=== PATIENT | male | born 1955 | race Hispanic/Latino ===

== ENCOUNTER 2018-02-24 15:07 | Emergency (ER) | payer BC, SELFPAY ==
--- NOTE | 2018-02-24 15:46 | EDPHYS ---
Physician Documentation [facility] Name: Tonny Cardona Age: 62 yrs Sex: Male : 1955 Arrival Date: 02/24/2018 Time: 15:10 Bed 28 Private MD: ED Physician Lucho Franco HPI: 02/24 15:19 This 62 yrs old Male presents to ER via EMS with complaints of abdominal pain. cp 15:19 The patient presents with abdominal pain in the periumbilical area. Onset: The cp symptoms/episode began/occurred 30 minute(s) ago. The symptoms do not radiate. Associated signs and symptoms: Pertinent negatives: blood in stools, chest pain, constipation, diarrhea, fever, testicular pain, vomiting. The symptoms are described as burning. Severity of pain: in the emergency department the pain has resolved. Patient reports pain started suddenly and is now resolved. Reports history of hernia repair in 2010. Patient reports he got "scared" when pain started so girlfriend called EMS. Historical: - Allergies: 15:15 No Known Allergies; mg2 - PMHx: 15:15 Diabetes - NIDDM; Hypertension; psoriasis; mg2 - PSHx: 15:15 Hernia repair; mg2 - Immunization history:: Flu vaccine is not up to date. - Social history:: Smoking status: Patient/guardian denies using tobacco, Patient uses alcohol, admits to "couple of beers" a day. Patient/guardian denies using street drugs, IV drugs. - Ebola Screening: : No symptoms or risks identified at this time. ROS: 15:22 All other systems are negative. cp Exam: 15:22 Head/Face: Normocephalic, atraumatic. cp 15:22 Constitutional: The patient appears in no acute distress, alert, awake, non-diaphoretic, non-toxic, well developed, well nourished, overweight 15:22 Eyes: Periorbital structures: appear normal, Conjunctiva: normal, no exudate, no injection, Sclera: no appreciated abnormality, Lids and lashes: appear normal, bilaterally. 15:22 ENT: External ear(s): are unremarkable, Nose: is normal, Mouth: Lips: moist, Oral mucosa: pink and intact, moist, Posterior pharynx: is normal, airway is patent, no erythema, no exudate. 15:22 Chest/axilla: Inspection: normal, Palpation: is normal, no crepitus, no tenderness. 15:22 Cardiovascular: Rate: normal, Rhythm: regular. 15:22 Respiratory: the patient does not display signs of respiratory distress, Respirations: normal, no use of accessory muscles, no retractions, no splinting, no tachypnea, labored breathing, is not present, Breath sounds: are clear throughout, no decreased breath sounds, no stridor, no wheezing. 15:22 Abdomen/GI: Inspection: obese Bowel sounds: active, all quadrants, Palpation: abdomen is soft and non-tender, in all quadrants, rebound tenderness, is not appreciated, voluntary guarding, is not appreciated, involuntary guarding, is not appreciated. 15:22 Back: pain, is absent, ROM is normal. 15:22 Skin: cellulitis, is not appreciated, consistent with psoriasis, and is diffusely located. Vital Signs: 15:13 BP 161 / 85; Pulse 85; Resp 18; Temp 97.9; Pulse Ox 100% on R/A; Weight 104.33 kg; mg2 Height 5 ft. 6 in. (167.64 cm); Pain 4/10; 15:59 BP 155 / 85; Pulse 78; Resp 18; Pulse Ox 100% on R/A; Pain 0/10; mg2 15:13 Body Mass Index 37.12 (104.33 kg, 167.64 cm) mg2 MDM: 15:19 Patient medically screened. cp 15:30 Differential diagnosis: appendicitis, bowel obstruction, non-specific abd pain, cp Pyelonephritis, Ureterolithiasis, urinary tract infection. 15:45 Data reviewed: vital signs, nurses notes, and as a result, I will discharge patient. cp 15:45 Counseling: I had a detailed discussion with the patient and/or guardian regarding: the cp historical points, exam findings, and any diagnostic results supporting the discharge/admit diagnosis, to return to the emergency department if symptoms worsen or persist or if there are any questions or concerns that arise at home. Administered Medications: No medications were administered Disposition: 16:10 Chart complete. cp 17:36 Co-signature as Attending Physician, Lucho Franco MD. Disposition: 02/24/18 15:45 Discharged to Home. Impression: Unspecified abdominal pain - Resolved. - Condition is Stable. - Discharge Instructions: Abdominal Pain, Adult. - Medication Reconciliation Form, Thank You Letter, Antibiotic Education, Prescription Opioid Use form. - Follow up: Lázaro Sampson MD; When: 2 - 3 days; Reason: Recheck today's complaints. - Problem is new. - Symptoms are resolved. Signatures: Milan Mcbride PA PA cp Lucho Franco MD MD gs Osmany Blanca RN RN mg2 Corrections: (The following items were deleted from the chart) 16:05 15:45 02/24/2018 15:45 Discharged to Home. Impression: Unspecified abdominal pain - mg2 Resolved. Condition is Stable. Forms are Medication Reconciliation Form, Thank You Letter, Antibiotic Education, Prescription Opioid Use. Follow up: Dr. Lázaro Sampson; When: 2 - 3 days; Reason: Recheck today's complaints. Problem is new. Symptoms are resolved. cp
--- NOTE | 2018-02-24 15:46 | ER ---
Nurse's Notes [facility] Name: Tonny Cardona Age: 62 yrs Sex: Male : 1955 Arrival Date: 02/24/2018 Time: 15:10 Bed 28 Private MD: Diagnosis: Unspecified abdominal pain-Resolved Presentation: 02/24 15:10 Presenting complaint: EMS states: about 20 min ago, while patient was sitting at the mg2 backseat of his car he felt a sudden pain on his abdomen. he is thinking maybe of his hernia which was done in [place] last 2010. BGL of 131. Transition of care: patient was not received from another setting of care. Onset of symptoms was February 24, 2018. Risk Assessment: Do you want to hurt yourself or someone else? Patient reports no desire to harm self or others. Initial Sepsis Screen: Does the patient meet any 2 criteria? No. Patient's initial sepsis screen is negative. Does the patient have a suspected source of infection? No. Patient's initial sepsis screen is negative. Care prior to arrival: None. 15:10 Method Of Arrival: EMS mg2 15:10 Acuity: FAIZA 3 mg2 Triage Assessment: 16:04 General: Behavior is calm. mg2 Historical: - Allergies: 15:15 No Known Allergies; mg2 - PMHx: 15:15 Diabetes - NIDDM; Hypertension; psoriasis; mg2 - PSHx: 15:15 Hernia repair; mg2 - Immunization history:: Flu vaccine is not up to date. - Social history:: Smoking status: Patient/guardian denies using tobacco, Patient uses alcohol, admits to "couple of beers" a day. Patient/guardian denies using street drugs, IV drugs. - Ebola Screening: : No symptoms or risks identified at this time. Screenin:23 Abuse screen: Denies threats or abuse. Denies injuries from another. Nutritional mg2 screening: No deficits noted. Tuberculosis screening: No symptoms or risk factors identified. Fall Risk None identified. Assessment: 15:24 General: Appears in no apparent distress. comfortable. Pain: Complains of pain in mg2 abdomen Pain does not radiate. Pain currently is 4 out of 10 on a pain scale. Quality of pain is described as aching, hot Pain began gradually, Is intermittent, Alleviated by. Neuro: Level of Consciousness is awake, alert, obeys commands, Oriented to person, place, time, situation. Cardiovascular: Capillary refill < 3 seconds Patient's skin is warm and dry. Respiratory: Airway is patent Respiratory effort is even, unlabored, Respiratory pattern is regular, symmetrical. GI: No signs and/or symptoms were reported involving the gastrointestinal system. : No signs and/or symptoms were reported regarding the genitourinary system. EENT: No signs and/or symptoms were reported regarding the EENT system. Derm: Skin is intact, Skin is pink, warm \\T\\ dry. normal. Musculoskeletal: No signs and/or symptoms reported regarding the musculoskeletal system. 16:04 Reassessment: Patient appears in no apparent distress at this time. Patient and/or mg2 family updated on plan of care and expected duration. Pain level reassessed. Patient is alert, oriented x 3, equal unlabored respirations, skin warm/dry/pink. Vital Signs: 15:13 BP 161 / 85; Pulse 85; Resp 18; Temp 97.9; Pulse Ox 100% on R/A; Weight 104.33 kg; mg2 Height 5 ft. 6 in. (167.64 cm); Pain 4/10; 15:59 BP 155 / 85; Pulse 78; Resp 18; Pulse Ox 100% on R/A; Pain 0/10; mg2 15:13 Body Mass Index 37.12 (104.33 kg, 167.64 cm) mg2 ED Course: 15:10 Patient arrived in ED. mg2 15:13 Triage completed. mg2 15:14 Milan Mcbride PA is PHCP. cp 15:14 Lucho Franco MD is Attending Physician. cp 15:23 Osmany Blanca, RN is Primary Nurse. mg2 15:24 No provider procedures requiring assistance completed. mg2 15:25 Patient has correct armband on for positive identification. Pulse ox on. NIBP on. mg2 15:27 Arm band placed on. mg2 15:44 Lázaro Sampson MD is Referral Physician. cp 16:04 Patient did not have IV access during this emergency room visit. mg2 Administered Medications: No medications were administered Outcome: 15:45 Discharge ordered by . cp 16:04 Discharged to home ambulatory. mg2 16:04 Condition: stable 16:04 Discharge instructions given to patient, Instructed on discharge instructions, follow up and referral plans. 16:05 Patient left the ED. mg2 Signatures: Milan Mcbride PA PA Osmany Greenwood, RN RN mg2
== END 2018-02-24 16:05 | disposition home or self-care (01) ==
LOC: ER 15:07
DX: R10.9 Unspecified abdominal pain (principal); I10 Essential (primary) hypertension
CPT/HCPCS: 99283

== ENCOUNTER 2018-05-23 16:25 | Inpatient (IN) | payer OTHER, SELFPAY ==
--- OUTSIDE RECORDS SUMMARY | 2018-05-23 16:27 | XMS REPORT ---
:1955 [facility] Address [address] [place] [address] Dr. Vil[address]as [address] [place] [id number] Care Team Providers Name Role Phone Unavailable Unavailable Unavailable Problems This patient has no known problems. Allergies, Adverse Reactions, Alerts This patient has no known allergies or adverse reactions. Medications This patient has no known medications.
--- NOTE | 2018-05-23 18:36 | RAD REPORT ---
EXAM DESCRIPTION: RAD - Chest Single View - 05/23/2018 6:30 pm CLINICAL HISTORY: SWELLING Chest pain. COMPARISON: CHEST SINGLE VIEW dated 05/31/2010 FINDINGS: Portable technique limits examination quality. The lungs are grossly clear. The heart is normal in size. No displaced fractures. IMPRESSION: No acute intrathoracic process suspected.
[2018-05-23 18:37] LABS: Absolute Lymphocytes (CBC) 1.4 K/uL (0.7-4.9); Absolute Monocytes 0.9 K/uL (0.1-1.3); Absolute Neutrophil 4.4 K/uL (1.8-8.0); Basophils % 0.9 % (0-1.3); Eosinophils % 1.1 % (0-4.4); Hematocrit 37.2 % (39.6-49.0); Lymphocytes % 20.8 % (15.3-44.8); MPV 9.3 fL (7.6-11.3); Monocytes % 12.6 % (3.3-12.3); RBC Red Blood Cell Count 3.63 M/uL (4.33-5.43)
[2018-05-23 18:40] LABS: Protime INR 1.4
[2018-05-23 18:57] LABS: BUN Blood Urea Nitrogen 6 mg/dL (7-18); Bicarbonate 25 mmol/L (21-32); Glucose Level 154 mg/dL (74-106); Magnesium 1.8 mg/dL (1.8-2.4); NT PRO-BNP 51 pg/mL (<125); Potassium 3.9 mmol/L (3.5-5.1); Sodium Level 136 mmol/L (136-145); Troponin (Emerg Dept Use Only) 0.34 ng/mL (0.0-0.045)
[2018-05-23 19:22] LABS: Blood Morphology Comment NOT SEEN (NOT SEEN); Platelet Estimate DECR; Urine White Blood Cell Casts OK
--- NOTE | 2018-05-23 19:29 | RAD REPORT ---
EXAM DESCRIPTION: US - Extrem Venous W Compress Brendon - 05/23/2018 6:54 pm CLINICAL HISTORY: Pain;Swelling Bilateral leg edema and swelling. COMPARISON: No comparisons TECHNIQUE: Real-time sonographic interrogation of the left and right lower extremity deep venous sys tems was performed. FINDINGS: Normal compressibility, flow augmentation, phasic flow and spontaneous flow is identified in both the left and right lower extremity deep venous systems. IMPRESSION: No sonographic evidence of left or right lower extremity deep venous thrombosis.
--- NOTE | 2018-05-23 20:00 | ER ---
Nurse's Notes [facility] Name: Tonny Cardona Age: 62 yrs Sex: Male : 1955 Arrival Date: 05/23/2018 Time: 16:27 Bed 23 Private MD: Diagnosis: Elevated Troponin;Cellulitis of left lower limb;Cellulitis of right lower limb Presentation: 05/23 16:47 Presenting complaint: Patient states: my both legs are swollen yury my R leg; i started hj seeing a drier; denies SOB; denies trauma to the area;. Transition of care: patient was not received from another setting of care. Onset of symptoms was May 23, 2018. Risk Assessment: Do you want to hurt yourself or someone else? Patient reports no desire to harm self or others. Initial Sepsis Screen: Does the patient meet any 2 criteria? No. Patient's initial sepsis screen is negative. Does the patient have a suspected source of infection? No. Patient's initial sepsis screen is negative. Care prior to arrival: None. 16:47 Method Of Arrival: Ambulatory 16:47 Acuity: FAIZA 3 Triage Assessment: 16:49 General: Appears in no apparent distress. uncomfortable, Behavior is calm, cooperative, hj appropriate for age. Pain: Complains of pain in right leg and left leg. Historical: - Allergies: 16:48 No Known Allergies; hj - Home Meds: 16:48 lisinopril 20 mg Oral tab 1 tab once daily [Active]; hj - PMHx: 16:48 Diabetes - NIDDM; Hypertension; psoriasis; hj - PSHx: 16:48 Hernia repair; - Immunization history:: Adult Immunizations up to date. - Social history:: Smoking status: Patient/guardian denies using tobacco, Patient uses alcohol. - Ebola Screening: : Patient negative for fever greater than or equal to 101.5 degrees Fahrenheit, and additional compatible Ebola Virus Disease symptoms Patient denies exposure to infectious person Patient denies travel to an Ebola-affected area in the 21 days before illness onset. Screenin:49 Abuse screen: Denies threats or abuse. Denies injuries from another. Nutritional hj screening: No deficits noted. Tuberculosis screening: No symptoms or risk factors identified. Fall Risk None identified. Assessment: 18:36 General: Appears in no apparent distress. comfortable, Behavior is calm, cooperative. mg2 Pain: Complains of pain in left leg and right leg Pain does not radiate. Pain currently is 2 out of 10 on a pain scale. Quality of pain is described as aching, Pain began gradually, 2-3 days ago. Is intermittent. Neuro: Level of Consciousness is awake, alert, obeys commands, Oriented to person, place, time, situation. Cardiovascular: Capillary refill < 3 seconds Patient's skin is warm and dry. Cardiovascular: Rhythm is sinus rhythm. Respiratory: Airway is patent Respiratory effort is even, unlabored, Respiratory pattern is regular, symmetrical. GI: No signs and/or symptoms were reported involving the gastrointestinal system. : No signs and/or symptoms were reported regarding the genitourinary system. EENT: No signs and/or symptoms were reported regarding the EENT system. Derm: Skin is intact, Skin is pink, warm \T\ dry. normal, flare ups of psoriasis present. Musculoskeletal: Capillary refill < 3 seconds, Swelling present in left leg and right leg. 18:38 Reassessment: patient sent to ultrasound via wheelchair. mg2 19:25 Reassessment: Patient appears in no apparent distress at this time. Patient and/or mg2 family updated on plan of care and expected duration. Pain level reassessed. Patient is alert, oriented x 3, equal unlabored respirations, skin warm/dry/pink. 21:52 Reassessment: report given to DIANE Aguirre. mg2 Vital Signs: 16:49 BP 158 / 83; Pulse 109; Resp 18; Temp 99.1(O); Pulse Ox 98% on R/A; Weight 109.77 kg; Height 5 ft. 9 in. (175.26 cm); Pain 10/10; 19:33 BP 151 / 77; Pulse 96; Resp 18; Pulse Ox 98% on R/A; Pain 2/10; mg2 20:11 BP 149 / 79; Pulse 96; Resp 18; Temp 99.4(O); Pulse Ox 100% ; Pain 0/10; mg2 21:47 BP 142 / 80; Pulse 90; Resp 18; Temp 99.3(O); Pulse Ox 97% on R/A; Pain 0/10; mg2 16:49 Body Mass Index 35.74 (109.77 kg, 175.26 cm) ED Course: 16:27 Patient arrived in ED. rg4 16:48 Triage completed. hj 16:49 Arm band placed on right wrist. hj 16:49 Patient has correct armband on for positive identification. Placed in gown. Bed in low hj position. Call light in reach. Side rails up X 1. Adult w/ patient. 17:54 Radha Reyna FNP-C is PSYCHIATRICP. kb 17:54 Emanuel Bedolla MD is Attending Physician. kb 18:14 Osmany Blanca, DIANE is Primary Nurse. mg2 18:30 XRAY Chest (1 view) In Process Unspecified. EDMS 18:36 No provider procedures requiring assistance completed. Inserted saline lock: 20 gauge mg2 in right antecubital area, using aseptic technique. Blood collected. 18:55 US Extremity Venous W Compression Brendon In Process Unspecified. EDMS 19:59 Rex Whitney MD is Hospitalizing Provider. kb 21:52 Patient admitted, IV remains in place. mg2 Administered Medications: 20:05 Drug: NS 0.9% 1000 ml Route: IV; Rate: 1000 ml; Site: right antecubital; mg2 21:00 Follow up: Response: No adverse reaction; IV Status: Completed infusion mg2 20:06 Drug: Clindamycin 600 mg Route: IVPB; Infused Over: 30 mins; Site: right antecubital; mg2 20:30 Follow up: Response: No adverse reaction; IV Status: Completed infusion mg2 Outcome: 19:59 Decision to Hospitalize by Provider. kb 21:52 Admitted to Tele accompanied by tech, via wheelchair, room 424, with chart, Report mg2 called to DIANE Aguirre 21:52 Condition: stable 21:52 Instructed on the need for admit, Demonstrated understanding of instructions. 22:13 Patient left the ED. mg2 Signatures: Dispatcher [employer] EDMS Radha Reyna FNP-C FNP-Ckb Joaquin, Henry, RN RN hj Garcia, Rubi rg4 Osmany Blanca RN RN mg2 Corrections: (The following items were deleted from the chart) 16:52 16:49 Pulse 109bpm; Resp 18bpm; Pulse Ox 98% RA; Temp 99.1F Oral; 109.77 kg; Height 5 hj ft. 9 in.; BMI: 35.7; Pain 10/10; hj
--- NOTE | 2018-05-23 20:00 | EDPHYS ---
Physician Documentation [facility] Name: Tonny Cardona Age: 62 yrs Sex: Male : 1955 Arrival Date: 05/23/2018 Time: 16:27 Bed 23 Private MD: ED Physician Emanuel Bedolla HPI: 05/23 20:05 This 62 yrs old Male presents to ER via Ambulatory with complaints of Leg kb Swelling. 20:05 The patient presents with pain, swelling, tenderness. The complaints affect the left kb stewart, right stewart. Context: The problem was sustained at home, resulted from an unknown cause, the patient can fully bear weight, the patient is able to ambulate. Onset: The symptoms/episode began/occurred 1 week(s) ago. Modifying factors: The symptoms are alleviated by nothing. the symptoms are aggravated by nothing. Associated signs and symptoms: Pertinent positives: fever, swelling, warmth, Pertinent negatives calf tenderness, nausea, numbness, rash, tingling, warmth, weakness. Treatment prior to arrival includes: no previous treatment. Severity of symptoms: At their worst the symptoms were moderate, severe, in the emergency department the symptoms are unchanged. The patient has not experienced similar symptoms in the past. The patient has not recently seen a physician. Historical: - Allergies: 16:48 No Known Allergies; hj - Home Meds: 16:48 lisinopril 20 mg Oral tab 1 tab once daily [Active]; hj - PMHx: 16:48 Diabetes - NIDDM; Hypertension; psoriasis; hj - PSHx: 16:48 Hernia repair; hj - Immunization history:: Adult Immunizations up to date. - Social history:: Smoking status: Patient/guardian denies using tobacco, Patient uses alcohol. - Ebola Screening: : Patient negative for fever greater than or equal to 101.5 degrees Fahrenheit, and additional compatible Ebola Virus Disease symptoms Patient denies exposure to infectious person Patient denies travel to an Ebola-affected area in the 21 days before illness onset. ROS: 20:02 Constitutional: Negative for fever, chills, and weight loss, Neck: Negative for injury, kb pain, and swelling, Cardiovascular: Negative for chest pain, palpitations, and edema, Respiratory: Negative for shortness of breath, cough, wheezing, and pleuritic chest pain, Abdomen/GI: Negative for abdominal pain, nausea, vomiting, diarrhea, and constipation, Back: Negative for injury and pain, Neuro: Negative for headache, weakness, numbness, tingling, and seizure. 20:02 MS/extremity: Positive for pain. 20:02 Skin: Positive for erythema, swelling, of the right leg and left leg. Exam: 20:00 Constitutional: This is a well developed, well nourished patient who is awake, alert, kb and in no acute distress. Head/Face: Normocephalic, atraumatic. Chest/axilla: Normal chest wall appearance and motion. Nontender with no deformity. No lesions are appreciated. Respiratory: Lungs have equal breath sounds bilaterally, clear to auscultation and percussion. No rales, rhonchi or wheezes noted. No increased work of breathing, no retractions or nasal flaring. Abdomen/GI: Soft, non-tender, with normal bowel sounds. No distension or tympany. No guarding or rebound. No evidence of tenderness throughout. Back: No spinal tenderness. No costovertebral tenderness. Full range of motion. MS/ Extremity: Pulses equal, no cyanosis. Neurovascular intact. Full, normal range of motion. 20:00 Cardiovascular: Heart sounds: murmur, Edema: 3+ edema to level of left midcalf and right midcalf, weeping . 20:00 Skin: cellulitis, that is moderate, on the right leg and left leg. Vital Signs: 16:49 BP 158 / 83; Pulse 109; Resp 18; Temp 99.1(O); Pulse Ox 98% on R/A; Weight 109.77 kg; Height 5 ft. 9 in. (175.26 cm); Pain 10/10; 19:33 BP 151 / 77; Pulse 96; Resp 18; Pulse Ox 98% on R/A; Pain 2/10; mg2 20:11 BP 149 / 79; Pulse 96; Resp 18; Temp 99.4(O); Pulse Ox 100% ; Pain 0/10; mg2 21:47 BP 142 / 80; Pulse 90; Resp 18; Temp 99.3(O); Pulse Ox 97% on R/A; Pain 0/10; mg2 16:49 Body Mass Index 35.74 (109.77 kg, 175.26 cm) MDM: 17:54 Patient medically screened. kb 19:57 Data reviewed: vital signs, nurses notes. Data interpreted: Pulse oximetry: on room air kb is 98 %. Interpretation: normal. Counseling: I had a detailed discussion with the patient and/or guardian regarding: the historical points, exam findings, and any diagnostic results supporting the discharge/admit diagnosis, lab results, radiology results, the need for further work-up and treatment in the hospital. 19:57 Physician consultation: Rex Whitney MD was contacted at 19:57, regarding admission, kb to the medical/surgical unit. patient's condition, and will see patient in ED, shortly. 05/23 18:11 Order name: Basic Metabolic Panel; Complete Time: 18:58 kb 05/23 18:11 Order name: CBC with Diff kb 05/23 18:11 Order name: Magnesium; Complete Time: 18:58 kb 05/23 18:11 Order name: NT PRO-BNP; Complete Time: 18:58 kb 05/23 18:11 Order name: PT-INR; Complete Time: 18:51 kb 05/23 18:11 Order name: Troponin (emerg Dept Use Only); Complete Time: 18:58 kb 05/23 18:11 Order name: XRAY Chest (1 view); Complete Time: 18:40 kb 05/23 18:11 Order name: US Extremity Venous W Compression Brendon; Complete Time: 19:30 kb 05/23 18:11 Order name: Lactate; Complete Time: 18:51 kb 05/23 18:11 Order name: Procalcitonin; Complete Time: 19:05 kb 05/23 18:11 Order name: Blood Culture Adult (2) kb 05/23 19:23 Order name: CBC Smear Scan; Complete Time: 19:30 EDMS 05/23 18:11 Order name: EKG; Complete Time: 18:12 kb 05/23 18:11 Order name: Cardiac monitoring; Complete Time: 18:36 kb 05/23 18:11 Order name: EKG - Nurse/Tech; Complete Time: 18:36 kb 05/23 18:11 Order name: IV Saline Lock; Complete Time: 18:36 kb 05/23 18:11 Order name: Labs collected and sent; Complete Time: 18:36 kb 05/23 18:11 Order name: O2 Per Protocol; Complete Time: 18:36 kb 05/23 18:11 Order name: O2 Sat Monitoring; Complete Time: 18:36 kb Administered Medications: 20:05 Drug: NS 0.9% 1000 ml Route: IV; Rate: 1000 ml; Site: right antecubital; mg2 21:00 Follow up: Response: No adverse reaction; IV Status: Completed infusion mg2 20:06 Drug: Clindamycin 600 mg Route: IVPB; Infused Over: 30 mins; Site: right antecubital; mg2 20:30 Follow up: Response: No adverse reaction; IV Status: Completed infusion mg2 Disposition: 05/24 09:41 Co-signature as Attending Physician, Emanuel Bedolla MD I agree with the assessment and kdr plan of care. Disposition: 05/23/18 19:59 Hospitalization ordered by Rex Whitney for Observation. Preliminary diagnosis are Elevated Troponin, Cellulitis of left lower limb, Cellulitis of right lower limb. - Bed requested for Telemetry/MedSurg (observation). - Status is Observation. mg2 - Condition is Stable. - Problem is new. - Symptoms are unchanged. UTI on Admission? No Signatures: Dispatcher [employer] EDKY Radha Reyna, MISTI-C OVEN OPERATOR AUTOMATIC-CkEmanuel Larios MD MD kdr Keven Hidalgo RN RN hj Osmany Blanca RN RN mg2 Shala Sanchez ar5 Corrections: (The following items were deleted from the chart) 05/23 21:10 19:59 Hospitalization Ordered by Rex Whitney MD for Inpatient Admission. Preliminary kb diagnosis is Elevated Troponin; Cellulitis of left lower limb; Cellulitis of right lower limb. Bed requested for Telemetry/MedSurg (Inpatient). Status is Inpatient Admission. Condition is Stable. Problem is new. Symptoms are unchanged. UTI on Admission? No. kb 21:45 21:10 05/23/2018 19:59 Hospitalization Ordered by Rex Whitney MD for Observation. ar5 Preliminary diagnosis is Elevated Troponin; Cellulitis of left lower limb; Cellulitis of right lower limb. Bed requested for Telemetry/MedSurg (observation). Status is Observation. Condition is Stable. Problem is new. Symptoms are unchanged. UTI on Admission? No. kb 22:13 21:45 05/23/2018 19:59 Hospitalization Ordered by Rex Whitney MD for Observation. mg2 Preliminary diagnosis is Elevated Troponin; Cellulitis of left lower limb; Cellulitis of right lower limb. Bed requested for Telemetry/MedSurg (observation). Status is Observation. Condition is Stable. Problem is new. Symptoms are unchanged. UTI on Admission? No. ar5
[2018-05-23] MEDS ORDERED: NA CHLORIDE 0.9% 1,000 ML ONE (20:10)
[2018-05-23] MEDS ORDERED: CLINDAMYCIN 600MG/D5W 600 MG/50 ML BAG IV ONE (20:10)
--- NOTE | 2018-05-23 21:22 | P.HP ---
Certification for Inpatient Patient admitted to: Observation With expected LOS: <2 Midnights Practitioner: I am a practitioner with admitting privileges, knowledge of patient current condition, hospital course, and medical plan of care. Services: Services provided to patient in accordance with Admission requirements found in Title 42 Section 412.3 of the Code of Federal Regulations Patient History Date of Service: 05/23/18 Reason for admission: cellulits History of Present Illness: Mr Cardona is a 62 years old male with history of DM II, Psoriasis, HTN, CHF, who recently had a cardiac work up in [place] by Dr Alonzo, and was told that has enlarged heart. He was prescribed Lisinopril and Lasix. Since 1 week ago, he has had progressive lower extremity swelling. He has bilateral large proriatic plaques in both legs. Right become more swollen and red than left. Today, he noticed some yellowish secretion from the right leg. His states that he has had subjective fever episodes. Lab work shows normal WBC count, procalcitonin and lactate are normal. Temp 99.1. CXR shows no acute abnormalities. Lower extremity venous doppler showed no DVT. Home medications list reviewed: Yes - Past Medical/Surgical History -: DM II -: HTN -: CHF -: psoriasis Past Surgical History: Reviewed- Non-Contributory - Family History Family History: Reviewed- Non-Contributory - Social History Smoking Status: Former smoker Alcohol use: Yes CD- Drugs: No Place of Residence: Home Review of Systems 10-point ROS is otherwise unremarkable Physical Examination - Physical Exam General: Alert, In no apparent distress HEENT: Atraumatic, PERRLA, Mucous membr. moist/pink, EOMI, Sclerae nonicteric Neck: Supple, 2+ carotid pulse no bruit, No LAD, Without JVD or thyroid abnormality Respiratory: Normal air movement, Other (coarse bilateral) Cardiovascular: Normal S1 S2, No gallops Gastrointestinal: Normal bowel sounds, No tenderness Musculoskeletal: Swelling, Erythema, Tenderness Integumentary: No rashes, Skin breakdown, Skin lesion (right leg, erythematose, edema, with yellowish secretion around prosiatic plaques) Neurological: Normal gait, Normal speech, Normal strength at 5/5 x4 extr, Normal tone, Normal affect Lymphatics: No axilla or inguinal lymphadenopathy - Studies Laboratory Data (last 24 hrs) 05/23/18 18:15: PT 16.6 H, INR 1.40 05/23/18 18:15: WBC 6.8, Hgb 12.9 L, Hct 37.2 L, Plt Count 59 L 05/23/18 18:15: Sodium 136, Potassium 3.9, BUN 6 L, Creatinine 0.72, Glucose 154 H, Magnesium 1.8 Assessment and Plan - Problems (Diagnosis) (1) Cellulitis Current Visit: Yes Status: Acute Qualifiers: Site of cellulitis: extremity Site of cellulitis of extremity: lower extremity Laterality: right Qualified Code(s): L03.115 - Cellulitis of right lower limb (2) Psoriasis Current Visit: Yes Status: Acute (3) Lower extremity edema Current Visit: Yes Status: Acute (4) HTN (hypertension) Current Visit: Yes Status: Acute Qualifiers: Hypertension type: essential hypertension Qualified Code(s): I10 - Essential (primary) hypertension (5) Diabetes mellitus Current Visit: Yes Status: Acute Qualifiers: Diabetes mellitus type: type 2 Diabetes mellitus intermediate frame tender insulin use: without intermediate frame tender use Diabetes mellitus complication status: with unspecified complications Qualified Code(s): E11.8 - Type 2 diabetes mellitus with unspecified complications - Plan the patient will be admitted to the hospital due to right lower extremity cellulitis. Will order empiric broad spectrum I IV antibiotic. No signs of sepsis. blood and wound culture are in process. Trop I is elevated, but he has no chest pain. Will order serial cardiac enzymes and EKG, consult Cardiology team. - Advance Directives Does patient have a Living Will: No Does patient have a Durable POA for Healthcare: No - Code Status/Comfort Care Code Status Assessed: Yes Code Status: Full Code
[2018-05-23] MEDS ORDERED: ACETAMINOPHEN 500 MG TAB PO PRN (23:20)
[2018-05-23] MEDS ORDERED: ONDANSETRON 4 MG/2 ML VIAL IV PRN (23:20)
[2018-05-23] MEDS ORDERED: MORPHINE 2 MG/ML SYR IV PRN (23:23)
[2018-05-24] MEDS: Levofloxacin 750mg IV 750 MG/150 ML BAG IV SCH ×2 (00:31→23:51)
[2018-05-24] MEDS ORDERED: VANCOMYCIN 2 GM in NA CHLORIDE 0.9% 500 ML IVPB SCH (01:00)
[2018-05-24] MEDS ORDERED: VANCOMYCIN 2 GM/500 ML BAG ONE (02:26)
[2018-05-24] MEDS ORDERED: VANCOMYCIN 1 GM/VIAL ONE (02:39)
[2018-05-24 03:16] LABS: Urine Appearance CLEAR; Urine Bilirubin NEGATIVE (NEG); Urine Blood NEGATIVE (NEG); Urine Color YELLOW; Urine Glucose NEGATIVE (NEG); Urine Protein NEGATIVE (NEG); Urine pH 7.5 (5.0-7.0)
[2018-05-24 03:18] LABS: Urine Microscopic Reflex NO UMIC
[2018-05-24 06:24] LABS: Absolute Lymphocytes (CBC) 1.6 K/uL (0.7-4.9); Absolute Monocytes 0.8 K/uL (0.1-1.3); Absolute Neutrophil 3.4 K/uL (1.8-8.0); Basophils % 0.5 % (0-1.3); Eosinophils % 2.3 % (0-4.4); Lymphocytes % 26.6 % (15.3-44.8); MPV 9.4 fL (7.6-11.3); Monocytes % 13.1 % (3.3-12.3); RBC Red Blood Cell Count 3.41 M/uL (4.33-5.43)
--- NOTE | 2018-05-24 06:27 | EKG ---
Test Date: 2018-05-23 Test Time: 18:29:08 Screener And Blender Operator: MG MEASUREMENT RESULTS: Intervals: Rate: 98 SC: 146 QRSD: 88 QT: 368 QTc: 469 [place]: P: 53 SC: 146 QRS: -36 T: 34 INTERPRETIVE STATEMENTS: Normal sinus rhythm with sinus arrhythmia Left axis deviation Cannot rule out Anterior infarct, age undetermined Abnormal ECG Compared to ECG 05/31/2010 00:40:24 No significant changes Electronically Signed On 05-24-18 06:27:06 KNITTER HAND by Edmund Dewey
[2018-05-24 06:28] VITALS: BMI 35.9
[2018-05-24 06:31] LABS: BUN Blood Urea Nitrogen 5 mg/dL (7-18); Bicarbonate 24 mmol/L (21-32); Glucose Level 103 mg/dL (74-106); Potassium 3.9 mmol/L (3.5-5.1); Sodium Level 140 mmol/L (136-145)
[2018-05-24] MEDS: INSULIN -REGULAR HUMAN 50 UNIT/0.5 ML ML SQ SCH ×4 (07:30→21:00)
[2018-05-24] MEDS ORDERED: MORPHINE 4 MG/ML SYR IV PRN (08:09)
[2018-05-24] MEDS ORDERED: LISINOPRIL 5 MG TAB PO SCH (09:00)
[2018-05-24] MEDS ORDERED: VANCOMYCIN 1 GM in NA CHLORIDE 0.9% 500 ML IVPB SCH (09:00)
[2018-05-24] MEDS ORDERED: FUROSEMIDE 40 MG/4 ML VIAL IV SCH (09:00)
[2018-05-24] MEDS ORDERED: POTASSIUM 25 MEQ EFFERV TAB PO ONE (09:00)
[2018-05-24] MEDS ORDERED: MAGNESIUM SULFATE 1 gm IVPB 1 GM/100 ML BAG IV ONE (09:00)
[2018-05-24] MEDS ORDERED: ENOXAPARIN 40 MG/0.4 ML SQ SCH (09:00)
[2018-05-24] MEDS ORDERED: HYDROCODONE/APAP 7.5/325 MG TAB PO PRN (11:30)
[2018-05-24] MEDS ORDERED: TRAMADOL HCL 50 MG TAB PO PRN (11:30)
--- NOTE | 2018-05-24 11:39 | P.PN ---
Subjective Date of Service: 05/24/18 Primary Care Provider: CASSANDRA Modi; Cardiology-Dr. Alonzo Chief Complaint: cellulits Subjective: Other (Patient feeling better.) Physical Examination - Vital Signs Temperature: 98.5 F Blood Pressure: 141/76 Pulse: 88 Respirations: 18 Pulse Ox (%): 98 - Physical Exam General: Alert, In no apparent distress, Oriented x3, Cooperative HEENT: Atraumatic Neck: Supple Respiratory: Clear to auscultation bilaterally, Normal air movement Cardiovascular: Normal pulses, Regular rate/rhythm Gastrointestinal: Normal bowel sounds, Soft and benign, Non-distended, No tenderness, No masses, No rebound, No guarding Musculoskeletal: No warmth Integumentary: Tenderness/swelling (Swelling to the lower extremities improved. Right greater than left. Mild erythema noted to the right lower extremity. Large psoriatic areas to the lower extremity and extensor surfaces throughout his body.) Neurological: Normal speech, Normal strength at 5/5 x4 extr, Normal tone, Normal affect - Studies Laboratory Data (last 24 hrs) 05/23/18 18:15: PT 16.6 H, INR 1.40 05/23/18 18:15: WBC 6.8, Hgb 12.9 L, Hct 37.2 L, Plt Count 59 L 05/23/18 18:15: Sodium 136, Potassium 3.9, BUN 6 L, Creatinine 0.72, Glucose 154 H, Magnesium 1.8 Medications List Reviewed: Yes Assessment & Plan Discharge Plan: Home Plan to discharge in: 72 Hours Physician Review Additional Text: Impression: Bilateral edema to the lower extremities, right greater than left secondary to cellulitis complicated with psoriasis Hypertension Suspect underlying chronic systolic congestive heart failure with noted elevated troponin Anemia with thrombocytopenia likely related to underlying liver disease History of tobacco and alcohol use Diabetes mellitus type 2 Plan: Bilateral edema to the lower extremities, right greater than left secondary to cellulitis complicated with psoriasis: Will continue with IV antibiotic therapy. Edema and erythema improved. Pharmacy to monitor and adjust per renal function. Will have wound care evaluate and treat lower extremity wound. Patient with psoriasis throughout his body. Patient will need to see Dermatology as an outpatient to further evaluate and address. Hypertension: Will restart home medication and adjust appropriately. Suspect underlying chronic systolic congestive heart failure with noted elevated troponin: Elevated troponin likely related to underlying stress. Cardiology consulted. Patient reports recent cardiac workup unremarkable. Will check echocardiogram to further evaluate. Will continue with IV Lasix but adjust appropriately. Will continue with 1500 cc per day fluid restriction. 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 Await further recommendations from cardiology. Anemia with thrombocytopenia likely related to underlying liver disease: Will obtain iron and B12 studies. Will also obtain fibrinogen, LDH, peripheral smear to further evaluate, suspect underlying liver disease. Will check abdominal ultrasound, lab-hepatitis and HIV. Will hold off on DVT prophylaxis. History of tobacco and alcohol use: Will check B12 and folic acid studies. Will start thiamine and folic acid. Will provide nicotine patch as needed. Will provide Ativan as needed. Cessation education addressed in detail. Diabetes mellitus type 2: Will monitor Accu-Cheks closely. Will check A1c. Time Spent Managing Pts Care (In Minutes): 55
[2018-05-24 12:47] LABS: Bilirubin Direct 2.5 mg/dL (0-0.2); Ferritin 200.8 ng/mL (26-388); Folic Acid, (Folate) 16.3 ng/mL (3.1-17.5); Protein, Total 6.6 g/dL (6.4-8.2); Thyroid Stimulating Hormone 1.42 uIU/mL (0.360-3.740)
[2018-05-24 12:50] LABS: Bilirubin Total 6.2 mg/dL (0.2-1.0)
--- NOTE | 2018-05-24 15:07 | CON ---
Date of Consultation: 05/24/2018 Reason For Consultation: Elevated troponin and cellulitis. History Of Present Illness: Mr. Cardona is a 62-year-old male, who has a history of diabetes, severe ps oriasis, hypertension, has had a history of hernia surgery in the past, came in with cellulitis, no c ardiac symptoms otherwise, was found to have elevated troponin 0.32, and I was asked to consult. Den ied PND or orthopnea. Has pedal edema. Denied palpitations or syncope. No previous cardiac history . An echocardiogram is pending. Allergies: NONE. Review of Systems: Negative. Social History: Negative. Family History: Negative. Medications At Home: Include lisinopril. Physical Examination: Vital Signs: Stable. He was afebrile. HEENT: Negative. Neck: Supple with no bruit. Chest: Clear to auscultation and percussion. Cardiac: Revealed a regular rhythm and rate without any murmurs, gallops, or rubs. Abdomen: Benign. Extremities: Revealed cellulitis on the right leg and mild edema bilaterally. Diagnostic Data: Troponin is 0.32. Chest x-ray is negative. Venous Doppler is negative. EKG is no nspecific. Impression And Plan: 1.Bilateral pedal edema with cellulitis on the right leg, on antibiotics. 2.Diabetes. 3.Hypertension. 4.Psoriasis. 5.History of hernia surgery. 6.Elevated troponin. I will continue antibiotics. Continue his home medication. Consider low-dose diuresis. He needs to have an echocardiogram to rule out congestive heart failure, most likely suni momin. May be reasonable for him to have an outpatient Lexiscan and I will make arrangements for him to undergo. EDDI/LEXIE Voice ID: [id number] Report ID: [id number]
[2018-05-24] MEDS: VANCOMYCIN 2 GM in NA CHLORIDE 0.9% 500 ML IVPB SCH (15:09)
--- NOTE | 2018-05-24 15:33 | ECHO ---
HEIGHT: 5 ft 9 in WEIGHT: 243 lb 1.6 oz DATE OF STUDY: 05/24/[address]: Nemesio Rachel MD 2-DIMENSIONAL: YES M.MODE: YES DOPPLER: YES COLOR FLOW: YES TDS: NO PORTABLE: NO DEFINITY: NO BUBBLE STUDY: NO DIAGNOSIS: TROPONIN ABNORMAL CARDIAC HISTORY: CATHERIZATION: NO SURGERY: NO PROSTHETIC VALVE: NO PACEMAKER: NO MEASUREMENTS (cm) DIASTOLIC (NORMALS) SYSTOLIC (NORMALS) IVSd 1.2 (0.6-1.2) LA Diam 4.4 (1.9-4.0) LVEF 69% LVIDd 5.0 (3.5-5.7) LVIDs 3.1 (2.0-3.5) %FS 38% LVPWd 1.1 (0.6-1.2) Ao Diam 3.3 (2.0-3.7) 2 DIMENSIONAL ASSESSMENT: RIGHT ATRIUM: NORMAL LEFT ATRIUM: NORMAL RIGHT VENTRICLE: NORMAL LEFT VENTRICLE: NORMAL TRICUSPID VALVE: NORMAL MITRAL VALVE: NORMAL PULMONIC VALVE: NORMAL AORTIC VALVE: NORMAL PERICARDIAL EFFUSION: NONE AORTIC ROOT: NORMAL LEFT VENTRICULAR WALL MOTION: NORMAL. DOPPLER/COLOR FLOW: NORMAL. COMMENTS: NORMAL 2D ECHO WITH DOPPLER. NO WALL MOTION ABNORMALITY. NO EFFUSION. TECHNOLOGIST: SAMEER AMAYA
[2018-05-24] MEDS: FUROSEMIDE 20 MG/ 2ML VIAL IV SCH (17:23)
--- NOTE | 2018-05-24 20:50 | RAD REPORT ---
EXAM DESCRIPTION: US - Abdomen Exam Complete - 05/24/2018 8:33 pm CLINICAL HISTORY: Abdominal pain. evaluate for liver disease COMPARISON: RP EXAM LIMITED dated 05/31/2010; CT ABD PELVIS W CONTRAST dated 09/26/2014 FINDINGS: The liver is diffusely heterogenous in appearance, shrunken in size and nodular in contour compatible with cirrhosis. Small nonspecific 16 x 16 mm lesion is present in the right lobe of the l iver. No biliary dilatation is seen. No gallstones are seen. There is mild thickening of the gallbladder wall measure up to 7 mm. Common bile duct is normal in caliber measuring 5 millimeters. Both kidneys are normal in size, shape and echotexture. No hydronephrosis is seen. The spleen is normal in size measuring 13 cm. The pancreas and aorta are obscured by bowel gas. The visualized aspects of the IVC are grossly normal. Mild ascites is present. IMPRESSION: Prominent liver cirrhosis pattern is present. 16 x 16 mm hypoechoic lesion is present in the right lobe liver, nonspecific. If further characteriza tion is clinically indicated, MR liver protocol could be obtained.
[2018-05-24] MEDS: MUPIROCIN 2% OINT 22GM TUBE TOP SCH (21:54)
[2018-05-24] MEDS: LISINOPRIL 10 MG TAB PO SCH (21:55)
[2018-05-25] MEDS: VANCOMYCIN 2 GM in NA CHLORIDE 0.9% 500 ML IVPB SCH ×2 (03:14→15:03)
[2018-05-25 06:10] LABS: Absolute Lymphocytes (CBC) 1.6 K/uL (0.7-4.9); Absolute Monocytes 0.7 K/uL (0.1-1.3); Absolute Neutrophil 2.8 K/uL (1.8-8.0); Basophils % 0.8 % (0-1.3); Hematocrit 35.1 % (39.6-49.0); Lymphocytes % 30.5 % (15.3-44.8); Monocytes % 13.4 % (3.3-12.3); RBC Red Blood Cell Count 3.38 M/uL (4.33-5.43)
[2018-05-25 06:19] LABS: Protime INR 1.51
[2018-05-25] MEDS: PANTOPRAZOLE 40MG TABLET PO SCH (06:30)
[2018-05-25 06:36] LABS: ALT/SGPT 32 U/L (12-78); AST/SGOT 65 U/L (15-37); Albumin 1.9 g/dL (3.4-5.0); Alkaline Phosphatase 169 U/L (45-117); BUN Blood Urea Nitrogen 5 mg/dL (7-18); Bicarbonate 25 mmol/L (21-32); Bilirubin Total 3.5 mg/dL (0.2-1.0); Glucose Level 100 mg/dL (74-106); Potassium 3.6 mmol/L (3.5-5.1); Protein, Total 6.5 g/dL (6.4-8.2); Sodium Level 138 mmol/L (136-145)
[2018-05-25] MEDS ORDERED: POTASSIUM CL SA 10 MEQ TAB PO ONE (06:51)
[2018-05-25 07:13] LABS: Blood Morphology Comment NOT SEEN (NOT SEEN); Platelet Estimate DECR; Urine White Blood Cell Casts OK
[2018-05-25] MEDS: INSULIN -REGULAR HUMAN 50 UNIT/0.5 ML ML SQ SCH ×4 (07:30→21:00)
[2018-05-25] MEDS: THIAMINE HCL 100 MG TABLET PO SCH (08:33)
[2018-05-25] MEDS: LISINOPRIL 10 MG TAB PO SCH ×2 (08:33→21:41)
[2018-05-25] MEDS: FOLIC ACID 1 MG TABLET PO SCH (08:33)
[2018-05-25] MEDS: FUROSEMIDE 20 MG/ 2ML VIAL IV SCH (08:34)
[2018-05-25] MEDS: MUPIROCIN 2% OINT 22GM TUBE TOP SCH ×2 (08:35→21:42)
--- NOTE | 2018-05-25 14:04 | P.PN ---
Subjective Date of Service: 05/25/18 Primary Care Provider: CASSANDRA Modi; Cardiology-Dr. Alonzo Chief Complaint: cellulits Subjective: Improving Physical Examination - Vital Signs Temperature: 97.7 F Blood Pressure: 147/72 Pulse: 79 Respirations: 18 Pulse Ox (%): 99 - Physical Exam General: Alert, In no apparent distress, Oriented x3, Cooperative HEENT: Atraumatic Neck: Supple Respiratory: Clear to auscultation bilaterally, Normal air movement Cardiovascular: Normal pulses, Regular rate/rhythm Gastrointestinal: Normal bowel sounds, Soft and benign, Non-distended, No tenderness, No masses, No rebound, No guarding Musculoskeletal: No tenderness, No warmth, Erythema (Erythema to the right lower extremity improved.) Integumentary: Tenderness/swelling (Edema significantly improved) Neurological: Normal speech, Normal strength at 5/5 x4 extr, Normal tone, Normal affect - Studies Medications List Reviewed: Yes Assessment & Plan Discharge Plan: Home Plan to discharge in: 24 Hours Physician Review Additional Text: Impression: Bilateral edema to the lower extremities, right greater than left secondary to cellulitis complicated with psoriasis Hypertension Elevated troponin likely related to liver disease Anemia with thrombocytopenia secondary to liver cirrhosis Liver cirrhosis History of tobacco and alcohol use Liver lesion Diabetes mellitus type 2 Plan: Bilateral edema to the lower extremities, right greater than left secondary to cellulitis complicated with psoriasis: Will continue with IV antibiotic therapy. Erythema and edema significantly improved. Anticipate discharge tomorrow on oral antibiotic therapy. Psoriasis will need to be further addressed by Dermatology as an outpatient. Hypertension: Will continue with home medication Elevated troponin likely related to stress and liver disease: Elevated troponin likely related to underlying stress. Cardiology consulted. Patient reports recent cardiac workup unremarkable. Echocardiogram unremarkable. Will continue with Lasix. Patient will need to continue with a 1500 cc per day fluid restriction. Anemia with thrombocytopenia likely related to liver cirrhosis: Lab reviewed including peripheral smear. Platelet count stable. Patient with underlying liver cirrhosis. Liver cirrhosis: Patient will need to establish care with hepatology as an outpatient to further monitor and address. Await HIV and hepatitis panel. Liver cirrhosis likely related to distant alcohol use. History of tobacco and alcohol use: Will check B12 and folic acid studies. Will start thiamine and folic acid. Will provide nicotine patch as needed. Will provide Ativan as needed. Cessation education addressed in detail. Liver lesion: This can be further monitored as an outpatient. Diabetes mellitus type 2: Will monitor Accu-Cheks closely. Will check A1c. Time Spent Managing Pts Care (In Minutes): 55
[2018-05-25] MEDS: FUROSEMIDE 40 MG TABLET PO SCH (17:27)
[2018-05-25] MEDS: CARVEDILOL 3.125 MG TAB PO SCH (17:28)
[2018-05-26] MEDS: Levofloxacin 750mg IV 750 MG/150 ML BAG IV SCH (00:46)
[2018-05-26] MEDS: VANCOMYCIN 2 GM in NA CHLORIDE 0.9% 500 ML IVPB SCH (03:47)
[2018-05-26 05:41] LABS: Absolute Lymphocytes (CBC) 1.7 K/uL (0.7-4.9); Absolute Monocytes 0.6 K/uL (0.1-1.3); Absolute Neutrophil 2.4 K/uL (1.8-8.0); Basophils % 1.2 % (0-1.3); Eosinophils % 3.9 % (0-4.4); Hematocrit 35.6 % (39.6-49.0); Lymphocytes % 34.2 % (15.3-44.8); MPV 9.9 fL (7.6-11.3); Monocytes % 12.5 % (3.3-12.3); RBC Red Blood Cell Count 3.45 M/uL (4.33-5.43)
[2018-05-26] MEDS: CARVEDILOL 3.125 MG TAB PO SCH (05:54)
[2018-05-26] MEDS: PANTOPRAZOLE 40MG TABLET PO SCH (05:54)
[2018-05-26 06:06] LABS: ALT/SGPT 33 U/L (12-78); AST/SGOT 59 U/L (15-37); Alkaline Phosphatase 169 U/L (45-117); BUN Blood Urea Nitrogen 6 mg/dL (7-18); Bicarbonate 25 mmol/L (21-32); Bilirubin Total 2.8 mg/dL (0.2-1.0); Glucose Level 99 mg/dL (74-106); Magnesium 1.9 mg/dL (1.8-2.4); Potassium 3.8 mmol/L (3.5-5.1); Protein, Total 6.3 g/dL (6.4-8.2); Sodium Level 140 mmol/L (136-145)
[2018-05-26 06:39] LABS: Protime INR 1.54
[2018-05-26] MEDS: INSULIN -REGULAR HUMAN 50 UNIT/0.5 ML ML SQ SCH ×2 (07:30→11:30)
[2018-05-26] MEDS ORDERED: POTASSIUM CL SA 10 MEQ TAB PO ONE (07:53)
[2018-05-26] MEDS: FOLIC ACID 1 MG TABLET PO SCH (08:53)
[2018-05-26] MEDS: FUROSEMIDE 40 MG TABLET PO SCH (08:54)
[2018-05-26] MEDS: THIAMINE HCL 100 MG TABLET PO SCH (08:54)
[2018-05-26] MEDS: MUPIROCIN 2% OINT 22GM TUBE TOP SCH (09:00)
[2018-05-26] MEDS: LISINOPRIL 10 MG TAB PO SCH (09:04)
--- NOTE | 2018-05-26 12:55 | P.DS ---
Admission Date: 05/24/18 Discharge Date: 05/26/18 Primary Care Provider: [facility]-[place], [place]; Cardiology-Dr. Alonzo Disposition: ROUTINE DISCHARGE Discharge Condition: GOOD Reason for Admission: cellulits Consultations: Cardiology-Dr. Rachel Procedures: ECHO: Ejection fraction 69% LEFT VENTRICULAR WALL MOTION: NORMAL. DOPPLER/COLOR FLOW: NORMAL. COMMENTS: NORMAL 2D ECHO WITH DOPPLER. NO WALL MOTION ABNORMALITY. NO EFFUSION. Venous doppler: COMPARISON: No comparisons TECHNIQUE: Real-time sonographic interrogation of the left and right lower extremity deep venous systems was performed. FINDINGS: Normal compressibility, flow augmentation, phasic flow and spontaneous flow is identified in both the left and right lower extremity deep venous systems. IMPRESSION: No sonographic evidence of left or right lower extremity deep venous thrombosis. CXR: COMPARISON: CHEST SINGLE VIEW dated 05/31/2010 FINDINGS: Portable technique limits examination quality. The lungs are grossly clear. The heart is normal in size. No displaced fractures. IMPRESSION: No acute intrathoracic process suspected. ABUS: COMPARISON: RP EXAM LIMITED dated 05/31/2010; CT ABD PELVIS W CONTRAST dated 2014 FINDINGS: The liver is diffusely heterogenous in appearance, shrunken in size and nodular in contour compatible with cirrhosis. Small nonspecific 16 x 16 mm lesion is present in the right lobe of the liver. No biliary dilatation is seen. No gallstones are seen. There is mild thickening of the gallbladder wall measure up to 7 mm. Common bile duct is normal in caliber measuring 5 millimeters. Both kidneys are normal in size, shape and echotexture. No hydronephrosis is seen. The spleen is normal in size measuring 13 cm. The pancreas and aorta are obscured by bowel gas. The visualized aspects of the IVC are grossly normal. Mild ascites is present. IMPRESSION: Prominent liver cirrhosis pattern is present. 16 x 16 mm hypoechoic lesion is present in the right lobe liver, nonspecific. If further characterization is clinically indicated, MR liver protocol could be obtained. Impression: Bilateral edema to the lower extremities, right greater than left secondary to cellulitis complicated with psoriasis Hypertension Elevated troponin likely related to liver disease Anemia with thrombocytopenia secondary to liver cirrhosis Liver cirrhosis likely from alcohol use History of tobacco and alcohol use 16 x 16 mm right lobe liver lesion Diabetes mellitus type 2 GERD Brief History of Present Illness: 62-year-old male presented emergency room with increasing edema to the lower extremities along with erythema. Patient found to have cellulitis to the lower extremities. Patient with history of alcoholic liver cirrhosis, hypertension, and psoriasis. Patient admitted for further treatment. Hospital Course: Patient presented with bilateral edema to the lower extremities, right greater than left secondary to cellulitis complicated with psoriasis. Patient was treated with IV antibiotic therapy. Patient responded well. Edema improved with diuresis. Patient also has complicated history of alcoholic liver cirrhosis, hypertension, diabetes mellitus type 2, and anemia with thrombocytopenia related to liver cirrhosis. At discharge patient will continue with Bactrim DS 1 pill twice daily and doxycycline 100 mg 1 pill twice daily for 7 days. Patient may apply Bactroban ointment to the area daily. Recommendation is for the patient to establish care with Dermatology to further evaluate and treat his psoriasis. Autoimmune workup will need to be continued to further evaluate. Patient with alcoholic liver cirrhosis. Patient responded well to diuresis. At discharge he will continue with Lasix 40 mg 1 pill twice daily. Patient will continue with a 1500 cc per day fluid restriction and low-salt diet. He is to monitor his weight daily. If his weight increases by more than 5 lb he is to contact his PCP for further recommendation. The patient will also continue with lactulose 15 mL 3 times a day to maintain 2-3 bowel movements daily. Education on alcoholic liver cirrhosis addressed in detail and information provided. Patient understands alcohol cessation will need to be continued. Recommendation is for the patient to establish care with hepatology to further evaluate. At discharge hepatitis panel, HIV panel, and NILS pending. This can be followed up by his PCP and hepatology. Autoimmune workup will need to be continued to further evaluate. Patient has hypertension. Medications were adjusted. At discharge he will continue with carvedilol 3.125 mg 1 pill twice daily and lisinopril 10 mg 1 pill twice daily. Recommendation is to maintain his blood pressures less 150/ 80. Further adjustment can be done by his PCP. Patient with alcohol and tobacco use. Recommendation for cessation addressed in detail. At discharge patient will continue with thiamine 100 mg daily and folic acid 1 mg daily. Patient likely has GERD. Patient will continue with Protonix 40 mg 1 pill once daily. Patient will need a follow up with GI as an outpatient to further monitor and address. Patient may require EGD in the future to further evaluate. Patient has anemia of chronic disease related to liver cirrhosis along with thrombocytopenia. This has remained stable. Recommendation is to recheck CBC in 2-4 weeks to monitor his progress. Patient found to have 16 mm right liver lesion. Recommendation is to have an MRI as an outpatient of the liver to further monitor. Further evaluation can be done by hepatology. Patient has diabetes mellitus type 2. A1c 6.0. Patient will continue with diet control. Recommendation is to maintain blood sugars less 140 fasting and less than 200 after meals. Further adjustment can be done by his PCP. Vital Signs/Physical Exam: Temp Pulse Resp BP Pulse Ox 97.3 F 67 20 119/65 98 05/26/18 08:00 05/26/18 09:04 05/26/18 08:00 05/26/18 09:04 05/26/18 08:00 General: Alert, In no apparent distress, Oriented x3, Cooperative HEENT: Atraumatic Neck: Supple Respiratory: Clear to auscultation bilaterally, Normal air movement Cardiovascular: Normal pulses, Regular rate/rhythm Gastrointestinal: Normal bowel sounds, Soft and benign, Non-distended, No tenderness, No masses, No rebound, No guarding Musculoskeletal: No erythema, No tenderness, No warmth Integumentary: No tenderness/swelling (No significant tenderness. Swelling significantly improved. No significant erythema as well.), Other (Psoriasis throughout.) Neurological: Normal speech, Normal strength at 5/5 x4 extr, Normal tone, Normal affect Lymphatics: No axilla or inguinal lymphadenopathy Laboratory Data at Discharge: WBC 4.9 K/uL (4.3-10.9) 05/26/18 05:04 Hgb 12.5 g/dL (13.6-17.9) L 05/26/18 05:04 Hct 35.6 % (39.6-49.0) L 05/26/18 05:04 Plt Count 62 K/uL (152-406) L D 05/26/18 05:04 PT 18.3 SECONDS (9.5-12.5) H 05/26/18 05:04 INR 1.54 05/26/18 05:04 Sodium 140 mmol/L (136-145) 05/26/18 05:04 Potassium 3.8 mmol/L (3.5-5.1) 05/26/18 05:04 BUN 6 mg/dL (7-18) L 05/26/18 05:04 Creatinine 0.54 mg/dL (0.55-1.3) L 05/26/18 05:04 Glucose 99 mg/dL (74-106) 05/26/18 05:04 Magnesium 1.9 mg/dL (1.8-2.4) 05/26/18 05:04 Total Bilirubin 2.8 mg/dL (0.2-1.0) H 05/26/18 05:04 AST 59 U/L (15-37) H 05/26/18 05:04 ALT 33 U/L (12-78) 05/26/18 05:04 Alkaline Phosphatase 169 U/L (45-117) H 05/26/18 05:04 Troponin I 0.32 ng/mL (0.0-0.045) H 05/24/18 15:26 Home Medications: Carvedilol [Coreg*] 3.125 mg PO BID 6AM 6PM #60 tab 05/26/18 Doxycycline Hyclate 100 mg PO BID #14 tablet 05/26/18 Folic Acid 1 mg PO DAILY #90 tablet 05/26/18 Furosemide [Lasix*] 40 mg PO BIDL #60 tab 05/26/18 Lactulose 15 ml PO TID PRN #1 bottle 05/26/18 Lisinopril [Prinivil*] 10 mg PO BID #60 tab 05/26/18 Mupirocin Oint [Bactroban 2% Ointment*] 1 appl TOP BID #1 tube 05/26/18 Pantoprazole [Protonix Tab*] 40 mg PO DAILYAC #30 tab 05/26/18 Sulfamethoxazole/Trimethoprim [Bactrim Ds Tablet] 1 each PO BID #14 tablet 05/26 Thiamine HCl [Vitamin B-1*] 100 mg PO DAILY #90 tablet 05/26/18 New Medications: Carvedilol [Coreg*] 3.125 mg PO BID 6AM 6PM #60 tab Doxycycline Hyclate 100 mg PO BID #14 tablet Folic Acid 1 mg PO DAILY #90 tablet Furosemide [Lasix*] 40 mg PO BIDL #60 tab Lactulose 15 ml PO TID PRN #1 bottle PRN Reason: Constipation Lisinopril [Prinivil*] 10 mg PO BID #60 tab Mupirocin Oint [Bactroban 2% Ointment*] 1 appl TOP BID #1 tube Pantoprazole [Protonix Tab*] 40 mg PO DAILYAC #30 tab Sulfamethoxazole/Trimethoprim [Bactrim Ds Tablet] 1 each PO BID #14 tablet Thiamine HCl [Vitamin B-1*] 100 mg PO DAILY #90 tablet Patient Discharge Instructions: 1. Patient will need to follow up his PCP in 1 week to follow up this hospitalization. 2. Patient presented with bilateral edema to the lower extremities, right greater than left secondary to cellulitis complicated with psoriasis. Patient was treated with IV antibiotic therapy. Patient responded well. Edema improved with diuresis. Patient also has complicated history of alcoholic liver cirrhosis, hypertension, diabetes mellitus type 2, and anemia with thrombocytopenia related to liver cirrhosis. At discharge patient will continue with Bactrim DS 1 pill twice daily and doxycycline 100 mg 1 pill twice daily for 7 days. Patient may apply Bactroban ointment to the area daily. Recommendation is for the patient to establish care with Dermatology to further evaluate and treat his psoriasis. Autoimmune workup will need to be continued to further evaluate. 3. Patient with alcoholic liver cirrhosis. Patient responded well to diuresis. At discharge he will continue with Lasix 40 mg 1 pill twice daily. Patient will continue with a 1500 cc per day fluid restriction and low-salt diet. He is to monitor his weight daily. If his weight increases by more than 5 lb he is to contact his PCP for further recommendation. The patient will also continue with lactulose 15 mL 3 times a day to maintain 2-3 bowel movements daily. Education on alcoholic liver cirrhosis addressed in detail and information provided. Patient understands alcohol cessation will need to be continued. Recommendation is for the patient to establish care with hepatology to further evaluate. At discharge hepatitis panel, HIV panel, and NILS pending. This can be followed up by his PCP and hepatology. Autoimmune workup will need to be continued to further evaluate. 4. Patient has hypertension. Medications were adjusted. At discharge he will continue with carvedilol 3.125 mg 1 pill twice daily and lisinopril 10 mg 1 pill twice daily. Recommendation is to maintain his blood pressures less 150/80. Further adjustment can be done by his PCP. 5. Patient with alcohol and tobacco use. Recommendation for cessation addressed in detail. At discharge patient will continue with thiamine 100 mg daily and folic acid 1 mg daily. 6. Patient likely has GERD. Patient will continue with Protonix 40 mg 1 pill once daily. Patient will need a follow up with GI as an outpatient to further monitor and address. Patient may require EGD in the future to further evaluate. 7. Patient has anemia of chronic disease related to liver cirrhosis along with thrombocytopenia. This has remained stable. Recommendation is to recheck CBC in 2-4 weeks to monitor his progress. 8. Patient found to have 16 mm right liver lesion. Recommendation is to have an MRI as an outpatient of the liver to further monitor. Further evaluation can be done by hepatology. 9. Patient has diabetes mellitus type 2. A1c 6.0. Patient will continue with diet control. Recommendation is to maintain blood sugars less 140 fasting and less than 200 after meals. Further adjustment can be done by his PCP. Diet: ADA Activity: Fall precautions Time spent managing pt's care (in minutes): 55
[2018-05-26 12:56] VITALS: BP 140/73; TEMP 97.5
[2018-05-26 14:56] LABS: HIV 1/2 Antibody Diff Not indicated.; HIV AG/AB 4TH GEN Non-reactive (Non-reactive)
[2018-05-26 15:48] VITALS: O2SAT 97
[2018-05-27 03:06] LABS: HBsAG Nonreactive (Nonreactive); Hepatitis A IgM Antibody Nonreactive
== END 2018-05-26 17:03 | disposition home or self-care (01) | DRG 603 ==
LOC: ER 16:25 → ERHOLD 21:06 → 4TH 22:03 → OBSVTOIN 05-24 13:48
PROVIDERS: ADMIT Internal Medicine; ATTEND Family Medicine
DX: L03.115 Cellulitis of right lower limb (principal); I50.22 Chronic systolic (congestive) heart failure; E11.9 Type 2 diabetes mellitus without complications; D69.6 Thrombocytopenia, unspecified; I10 Essential (primary) hypertension; L40.9 Psoriasis, unspecified; K76.9 Liver disease, unspecified; K70.30 Alcoholic cirrhosis of liver without ascites; D63.8 Anemia in other chronic diseases classified elsewhere; Z87.891 Personal history of nicotine dependence; Z72.89 Other problems related to lifestyle
CPT/HCPCS: 36415; 71045; 76700; 80048; 80053; 80074; 80076; 80202; 81003; 82607; 82728; 82746; 82962; 83036; 83540; 83605; 83615; 83735; 83880; 84145; 84439; 84443; 84466; 84484; 85025; 85384; 85610; 86038; 86880; 87040; 87389; 93005; 93306; 93970; 96361; 96365; 99285; J1940; J2270; J3370; J3475; J7030

== ENCOUNTER 2018-06-03 08:15 | Emergency (ER) | payer OTHER ==
--- OUTSIDE RECORDS SUMMARY | 2018-06-03 08:17 | XMS REPORT ---
:1955 Author Organization [facility] Address [address] [place] [address] Dr. Villegas [address] [place] [id number] Care Team Providers Name Role Phone Unavailable Unavailable Unavailable Problems This patient has no known problems. Allergies, Adverse Reactions, Alerts This patient has no known allergies or adverse reactions. Medications This patient has no known medications.
--- NOTE | 2018-06-03 09:12 | RAD REPORT ---
EXAM DESCRIPTION: CT - Abdomen Pelvis Wo Contrast - 06/03/2018 8:49 am CLINICAL HISTORY: Abdominal pain. NO IV or oral contrast;Abd pain COMPARISON: CT ABD PELVIS W CONTRAST dated 09/26/2014 TECHNIQUE: CT imaging of the abdomen and pelvis was performed without contrast. Solid organ, bowel a nd vascular assessment is limited due to lack of IV and oral contrast. All CT scans are performed using dose optimization technique as appropriate and may include automated exposure control or mA/KV adjustment according to patient size. FINDINGS: The lower lung fisher are clear.Moderate axial hiatal hernia is present. Prominent liver cirrhosis is identified. Small low-density lesion is seen in the right lobe of the li tadeo measuring 10 mm, nonspecific.The spleen, pancreas, adrenal glands and kidneys are within normal l imits. A large duodenum diverticulum noted. No bowel obstruction, free air, free fluid or abscess. Moderate fat containing umbilical hernia. The appendix is normal. Sigmoid diverticulosis coli is present without diverticulitis. The osseous structures are within normal limits. IMPRESSION: No acute intra-abdominal or pelvic findings. Advanced liver cirrhosis noted. Moderate axial hiatal hernia and fat containing umbilical hernia. A limited non-contrast examination was performed as detailed.
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
[2018-06-03 09:33] VITALS: O2SAT 98
[2018-06-03 09:34] VITALS: BP 115/70
== END 2018-06-03 09:29 | disposition home or self-care (01) ==
LOC: ER 08:15
DX: S13.4XXA Sprain of ligaments of cervical spine, initial encounter (principal); V49.40XA Driver injured in collision with unspecified motor vehicles in traffic accident, initial encounter; K74.69 Other cirrhosis of liver; K44.9 Diaphragmatic hernia without obstruction or gangrene; K42.9 Umbilical hernia without obstruction or gangrene; K57.30 Diverticulosis of large intestine without perforation or abscess without bleeding; E11.9 Type 2 diabetes mellitus without complications; I10 Essential (primary) hypertension; Z79.899 Other long term (current) drug therapy
CPT/HCPCS: 72040; 74176; 99283

== ENCOUNTER 2018-07-08 13:07 | Emergency (ER) | payer OTHER ==
--- OUTSIDE RECORDS SUMMARY | 2018-07-08 13:09 | XMS REPORT ---
:1955 [facility] Address [address] [place] [address] Dr. Villegas [address] [place] [id number] Care Team Providers Name Role Phone Unavailable Unavailable Unavailable Problems This patient has no known problems. Allergies, Adverse Reactions, Alerts This patient has no known allergies or adverse reactions. Medications This patient has no known medications.
[2018-07-08] MEDS ORDERED: NA CHLORIDE 0.9% 500 ML ONE (13:50)
[2018-07-08 14:21] LABS: Protime INR 1.52
[2018-07-08 14:23] LABS: Absolute Lymphocytes (CBC) 2.5 K/uL (0.7-4.9); Absolute Monocytes 1.2 K/uL (0.1-1.3); Absolute Neutrophil 5.8 K/uL (1.8-8.0); Basophils % 0.4 % (0-1.3); Eosinophils % 1.1 % (0-4.4); Monocytes % 12.7 % (3.3-12.3); RBC Red Blood Cell Count 3.87 M/uL (4.33-5.43)
[2018-07-08 14:49] LABS: Blood Morphology Comment NOT SEEN (NOT SEEN); Platelet Estimate DECR; Urine White Blood Cell Casts OK
[2018-07-08 15:08] LABS: Potassium 4.1 mmol/L (3.5-5.1)
--- NOTE | 2018-07-08 17:46 | RAD REPORT ---
EXAM DESCRIPTION: CT - Abdomen Pelvis W Contrast - 07/08/2018 5:14 pm CLINICAL HISTORY: Abdominal pain, drainage from the incision site, hernia repair 5 days earlier COMPARISON: CT study September 2014 TECHNIQUE: Biphasic, helical CT imaging of the abdomen and pelvis was performed following 100 ml non -ionic IV contrast. Oral contrast was given. All CT scans are performed using dose optimization technique as appropriate and may include automated exposure control or mA/KV adjustment according to patient size. FINDINGS: No suspicious findings in the lung bases. No pericardial thickening or effusion. Prominen t paraesophageal varices noted. No focal liver lesions seen. Liver is nodular along the capsular contour. No splenomegaly or focal sp lenic finding. No acute pancreatic process. No biliary tree dilatation. Gallbladder wall appears thic kened or edematous. No gallstones are seen though gallstones can be occult on CT imaging. Symmetric renal function is seen with no hydronephrosis or suspicious renal mass. No pyelonephritis o r acute parenchymal process. Urinary bladder is contracted limiting assessment. No adrenal abnormalit ies. No gastric dilatation or wall thickening. Patient has a large duodenal diverticulum. No small bowel d ilatation. No appendicitis. Wall thickening and nodularity involves the entire colon. Findings are mo st pronounced from cecum around to the splenic flexure. There is congestion or edema in the peritonea l fat. Bowel ischemia is not suspected. No free air, pneumatosis or free fluid. No extravasation of oral or IV contrast. No mass or bulky ly mphadenopathy. No omental thickening. Mesh material has been placed over the neck of the known umbili jeevan hernia. Mild congestion and edema seen in the surrounding subcutaneous fatty tissues at the umbil icus. No air in the soft tissues. No suspicious bony findings. IMPRESSION: No abscess, free air or surgically emergent finding. Mesh material has been placed at the umbilical hernia site. No air or foreign body in the soft tissue s. Circumferential wall thickening throughout most of the colon. This could be a pancolitis or possibly wall edema secondary to hypoalbuminemia or other metabolic process. Gallbladder wall thickening and edema. Gallstones can be occult. No biliary tree dilatation. Cirrhotic liver changes with no suspicious liver lesion. Numerous upper abdominal varices.
[2018-07-08] MEDS ORDERED: DERMABOND SKIN ADHESIVE TOP ONE (18:06)
[2018-07-08] MEDS ORDERED: Mastisol Adhesive Liq ONE (18:10)
--- NOTE | 2018-07-08 18:11 | ER ---
Nurse's Notes [facility] Name: Tonny Cardona Age: 62 yrs Sex: Male : 1955 Arrival Date: 07/08/2018 Time: 13:11 Bed 2 Private MD: out of town, doctor Diagnosis: Disruption of external operation (surgical) wound, not elsewhere classified;Ascites Presentation: 07/08 13:19 Presenting complaint: Pt is 5 days s/sp laparoscopic hernia repair, c/o leaking fluid hb from incision site and increased abdominal pain and swelling. Transition of care: patient was not received from another setting of care. Onset of symptoms was July 08, 2018. Risk Assessment: Do you want to hurt yourself or someone else? Patient reports no desire to harm self or others. Care prior to arrival: None. 13:19 Method Of Arrival: Ambulatory hb 13:19 Acuity: FAIZA 2 hb Historical: - Allergies: 13:22 No Known Allergies; hb - Home Meds: 13:22 lisinopril 20 mg Oral tab 1 tab once daily [Active]; hb - PMHx: 13:22 Hypertension; Diabetes - NIDDM; psoriasis; Cirrhosis; hb - PSHx: 13:22 Hernia repair; hb - Immunization history:: Adult Immunizations up to date. - Social history:: Smoking status: Patient/guardian denies using tobacco. - Ebola Screening: : No symptoms or risks identified at this time. - Family history:: not pertinent. - Hospitalizations: : Patient was recently seen at. - : The history from the nurse's notes was reviewed. Screenin:00 Abuse screen: Denies threats or abuse. Denies injuries from another. Nutritional sv screening: No deficits noted. Tuberculosis screening: No symptoms or risk factors identified. Fall Risk None identified. Assessment: 13:40 General: Appears in no apparent distress. uncomfortable, obese, well developed, well sg nourished, Behavior is calm, cooperative, appropriate for age. Pain: Complains of pain in right upper quadrant and right lower quadrant Quality of pain is described as tender. Neuro: Level of Consciousness is awake, alert, obeys commands, Oriented to person, place, time, Instrument Specialist are equal bilaterally Moves all extremities. Speech is normal, Facial symmetry appears normal. Cardiovascular: Heart tones S1 S2 present Patient's skin is warm and dry. Chest pain is denied. Respiratory: Airway Respiratory effort is even, unlabored, Respiratory pattern is regular, symmetrical. GI: Abdomen is round obese, bruised on anterior aspect of right lateral abdomen, posterior aspect of right lateral abdomen, right upper quadrant, right lower quadrant and left lower quadrant. : No signs and/or symptoms were reported regarding the genitourinary system. EENT: No signs and/or symptoms were reported regarding the EENT system. Derm: Skin is pink, warm \T\ dry. Derm: Bruising that is bright red, dark purple, green, on right lower back, anterior aspect of right lateral abdomen, posterior aspect of right lateral abdomen, right upper quadrant, right lower quadrant, left lower quadrant, right inguinal area, right iliac crest and right hip. Musculoskeletal: No signs and/or symptoms reported regarding the musculoskeletal system. Injury Description: post surgical incision noted, with a dressing that is saturated with serosanguinous drainage at this time. 17:20 Reassessment: Patient appears in no apparent distress at this time. Patient and/or sg family updated on plan of care and expected duration. Pain level reassessed. Patient is alert, oriented x 3, equal unlabored respirations, skin warm/dry/pink. Neuro: Level of Consciousness is awake, alert, obeys commands, Oriented to person, place, time. Respiratory: Airway is patent Respiratory effort is even, unlabored, Respiratory pattern is regular, symmetrical. Derm: Skin is pink, warm \T\ dry. Vital Signs: 13:21 BP 159 / 72; Pulse 105; Resp 18; Temp 100.7; Pulse Ox 98% on R/A; Pain 9/10; hb 15:00 BP 151 / 76; Pulse 79; Resp 18; Pulse Ox 100% ; ms 16:00 BP 156 / 77; Pulse 77; Resp 18; Pulse Ox 100% ; ms 17:00 BP 142 / 76; Pulse 76; Resp 18; Pulse Ox 99% ; ms 18:11 Temp 99.0; ms 18:12 BP 154 / 277; Pulse 77; Resp 18; Pulse Ox 99% ; ms ED Course: 13:11 Patient arrived in ED. sb2 13:11 out of town, doctor is Private Physician. sb2 13:21 Triage completed. hb 13:21 Arm band placed on. hb 13:27 Irving Chacko MD is Attending Physician. rn 13:50 Burrell, Froilan, RN is Primary Nurse. sg 14:00 Oral contrast given. kw1 14:00 Patient has correct armband on for positive identification. Placed in gown. Bed in low sv position. Call light in reach. Adult w/ patient. Pulse ox on. NIBP on. Door closed. Head of bed elevated. 14:00 Initial lab(s) drawn, by me, sent to lab. Inserted saline lock: 20 gauge in left sv antecubital area, using aseptic technique. Blood collected. Flushed left antecubital with 5 ml normal saline. 17:13 CT completed. Patient tolerated procedure well. Patient moved to CT via stretcher. kw1 Patient moved back from CT. 17:14 CBC Smear Scan Sent. sv 17:15 CT Abd/Pelvis - W/Contrast In Process Unspecified. EDMS Administered Medications: 14:05 Drug: NS 0.9% 500 ml Route: IV; Rate: bolus; Site: left antecubital; sv 15:18 Follow up: Response: No adverse reaction; IV Status: Completed infusion; IV Intake: sg 500ml 18:20 Drug: Bactrim (160 mg-800 mg (DS) 1 tablet Route: PO; ss Intake: 15:18 IV: 500ml; Total: 500ml. sg Outcome: 18:11 Discharge ordered by . rn 18:32 Patient left the ED. ms Signatures: Dispatcher [employer] EDMS Belén Perez RN RN sv Gay, Steven, RN Makayla Clark ms, Roman, MD MD rn Smirch, Shelby, RN RN ss Baxter, Heather, RN RN Valerie Calhoun kw1 Sara Estrada sb2 Corrections: (The following items were deleted from the chart) :57 13:55 Hospitalizations: No recent hospitalization is reported. rn haresh 13:57 13:55 The history from the nurse's notes was reviewed. haresh hutson
--- NOTE | 2018-07-08 18:12 | EDPHYS ---
Physician Documentation [facility] Name: Tonny Cardona Age: 62 yrs Sex: Male : 1955 Arrival Date: 07/08/2018 Time: 13:11 Bed 2 Private MD: out of town, doctor ED Physician Irving Chacko HPI: 07/08 13:55 This 62 yrs old Male presents to ER via Ambulatory with complaints of POST access rn PROBLEM. 13:55 The patient presents with abdominal distention. Onset: The symptoms/episode rn began/occurred 5 day(s) ago. The symptoms do not radiate. Associated signs and symptoms: Pertinent negatives: nausea and vomiting, blood in stools. The symptoms are described as achy. Severity of pain: At its worst the pain was mild in the emergency department the pain is unchanged. The patient has not experienced similar symptoms in the past. The patient has been recently seen by a physician:. Reports had laparoscopic hernia repair 5 days ago, since then ahs slowly been leaking ascites, has never had paracentesis, feels weak and lightheaded with mild abd pain.. Historical: - Allergies: 13:22 No Known Allergies; hb - Home Meds: 13:22 lisinopril 20 mg Oral tab 1 tab once daily [Active]; hb - PMHx: 13:22 Hypertension; Diabetes - NIDDM; psoriasis; Cirrhosis; hb - PSHx: 13:22 Hernia repair; hb - Immunization history:: Adult Immunizations up to date. - Social history:: Smoking status: Patient/guardian denies using tobacco. - Ebola Screening: : No symptoms or risks identified at this time. - Family history:: not pertinent. - Hospitalizations: : Patient was recently seen at. - : The history from the nurse's notes was reviewed. ROS: 13:55 Constitutional: Negative for fever, chills, and weight loss, Eyes: Negative for injury, rn pain, redness, and discharge, Neck: Negative for injury, pain, and swelling, Cardiovascular: Negative for chest pain, palpitations, and edema, Respiratory: Negative for shortness of breath, cough, wheezing, and pleuritic chest pain, Abdomen/GI: + abdominal distension and drainage MS/Extremity: Negative for injury and deformity, Skin: Negative for injury, rash, and discoloration, Neuro: + generalized weakness Exam: 13:55 Constitutional: This is a well developed, well nourished patient who is awake, alert, rn and in no acute distress. Head/Face: Normocephalic, atraumatic. Eyes: Pupils equal round and reactive to light, extra-ocular motions intact. ENT: dry MM Cardiovascular: tachycardic, regular, no murmur Respiratory: Lungs have equal breath sounds bilaterally, clear to auscultation. No increased work of breathing, no retractions or nasal flaring. Abdomen/GI: + protruberant abdomen with areas of ecchymosis and tenderness around surgical sites, right lateral surgical site with small amount of serous drainage, no purulence, no peritoneal signs. MS/ Extremity: Pulses equal, no cyanosis. Neurovascular intact. Full, normal range of motion. Equal circumference. Neuro: Awake and alert, GCS 15, oriented to person, place, time, and situation. Cranial nerves II-XII grossly intact. Motor strength 5/5 in all extremities. Sensory grossly intact. Vital Signs: 13:21 BP 159 / 72; Pulse 105; Resp 18; Temp 100.7; Pulse Ox 98% on R/A; Pain 9/10; hb 15:00 BP 151 / 76; Pulse 79; Resp 18; Pulse Ox 100% ; ms 16:00 BP 156 / 77; Pulse 77; Resp 18; Pulse Ox 100% ; ms 17:00 BP 142 / 76; Pulse 76; Resp 18; Pulse Ox 99% ; ms 18:11 Temp 99.0; ms 18:12 BP 154 / 277; Pulse 77; Resp 18; Pulse Ox 99% ; ms MDM: 13:27 Patient medically screened. rn 18:08 Differential diagnosis: leaking surgical wound, viral syndrome, dehydration. Data rn reviewed: vital signs, nurses notes, lab test result(s), radiologic studies, CT scan, and as a result, I will discharge patient. Counseling: I had a detailed discussion with the patient and/or guardian regarding: the historical points, exam findings, and any diagnostic results supporting the discharge/admit diagnosis, lab results, the need for outpatient follow up. Response to treatment: the patient's symptoms have markedly improved after treatment, and as a result, I will discharge patient. Special discussion: Based on the patient's Hx, exam, and Dx evaluation, there is no indication for emergent surgery or inpatient Tx. It is understood by the patient/guardian that if the Sx's persist or worsen they need to return immediately for re-evaluation. I discussed with the patient/guardian in detail that at this point there is no indication for admission to the hospital. It is understood, however, that if the symptoms persist or worsen the patient needs to return immediately for re-evaluation. ED course: Pain consistent with post surgical pain and ecchymosis. CT abdomen no acute findings, mesh in place, + ascites, + known cirrhotic, denies vomiting/diarrhea. Wound dermabonded and no longer leaking. Patient states has appt with his surgeon tomorrow. Return precautions given and understood. . 07/08 13:37 Order name: CBC with Diff; Complete Time: 15:17 rn 07/08 13:37 Order name: Basic Metabolic Panel; Complete Time: 15:17 rn 07/08 13:37 Order name: Protime (+inr); Complete Time: 15:17 rn 07/08 13:37 Order name: Ptt, Activated; Complete Time: 15:17 rn 07/08 13:37 Order name: CT Abd/Pelvis - W/Contrast; Complete Time: 17:48 rn 07/08 14:51 Order name: CBC Smear Scan EDMS 07/08 13:37 Order name: IV Start; Complete Time: 14:05 rn Administered Medications: 14:05 Drug: NS 0.9% 500 ml Route: IV; Rate: bolus; Site: left antecubital; sv 15:18 Follow up: Response: No adverse reaction; IV Status: Completed infusion; IV Intake: sg 500ml 18:20 Drug: Bactrim (160 mg-800 mg (DS) 1 tablet Route: PO; ss Disposition: 07/08/18 18:11 Discharged to Home. Impression: Disruption of external operation (surgical) wound, not elsewhere classified, Ascites. - Condition is Stable. - Discharge Instructions: Ascites, Tissue Adhesive Wound Care. - Prescriptions for Bactrim DS 800- 160 mg Oral Tablet - take 1 tablet by ORAL route every 12 hours for 10 days; 20 tablet. - Medication Reconciliation Form, Thank You Letter, Antibiotic Education, Prescription Opioid Use form. - Follow up: Private Physician; When: Tomorrow; Reason: Wound Recheck, Recheck today's complaints, Continuance of care, Re-evaluation by your physician. - Problem is new. - Symptoms have improved. Signatures: Dispatcher [employer] Belén López RN Makayla Schafer ms, Roman, MD MD rn Smirch, Shelby, RN RN ss Baxter, Heather, RN RN hb Gay, Froilan CONTRERAS sg Corrections: (The following items were deleted from the chart) 13:57 13:55 Hospitalizations: No recent hospitalization is reported. rn haresh 13:57 13:55 The history from the nurse's notes was reviewed. rn rn 18:32 18:11 07/08/2018 18:11 Discharged to Home. Impression: Disruption of external operation ms (surgical) wound, not elsewhere classified; Ascites. Condition is Stable. Forms are Medication Reconciliation Form, Thank You Letter, Antibiotic Education, Prescription Opioid Use. Follow up: Private Physician; When: Tomorrow; Reason: Wound Recheck, Recheck today's complaints, Continuance of care, Re-evaluation by your physician. Problem is new. Symptoms have improved. rn
[2018-07-08] MEDS ORDERED: SMZ./TMP. 800/160 MG TABLET ONE (18:33)
[2018-07-08 19:38] VITALS: BP 142/76; O2SAT 99
[2018-07-08 19:39] VITALS: TEMP 99
== END 2018-07-08 18:32 | disposition home or self-care (01) ==
LOC: ER 13:07
DX: R18.8 Other ascites (principal); I10 Essential (primary) hypertension; E11.9 Type 2 diabetes mellitus without complications; Z98.890 Other specified postprocedural states
CPT/HCPCS: 36415; 74177; 80048; 85025; 85610; 85730; 96360; 99284; Q9967

== ENCOUNTER 2018-08-04 14:05 | Observation (INO) | payer OTHER ==
--- OUTSIDE RECORDS SUMMARY | 2018-08-04 14:07 | XMS REPORT ---
:1955 [facility] Address [address] [place] [address] Dr. Villegas [address] [place] [id number] Care Team Providers Name Role Phone Unavailable Unavailable Unavailable Problems This patient has no known problems. Allergies, Adverse Reactions, Alerts This patient has no known allergies or adverse reactions. Medications This patient has no known medications.
[2018-08-04 15:01] LABS: Absolute Lymphocytes (CBC) 1.7 K/uL (0.7-4.9); Absolute Monocytes 0.7 K/uL (0.1-1.3); Absolute Neutrophil 2.8 K/uL (1.8-8.0); Basophils % 0.8 % (0-1.3); Hematocrit 34.4 % (39.6-49.0); Lymphocytes % 29.6 % (15.3-44.8); MPV 9.9 fL (7.6-11.3); Monocytes % 13.2 % (3.3-12.3); RBC Red Blood Cell Count 3.45 M/uL (4.33-5.43)
[2018-08-04 15:05] LABS: Protime INR 1.31
--- NOTE | 2018-08-04 15:18 | RAD REPORT ---
EXAM DESCRIPTION: CT - Head Brain Wo Cont - 08/04/2018 2:54 pm CLINICAL HISTORY: Slurred speech, transient alteration of awareness COMPARISON: None. TECHNIQUE: Axial 5 mm thick images of the head were obtained without IV contrast. All CT scans are performed using dose optimization technique as appropriate and may include automated exposure control or mA/KV adjustment according to patient size. FINDINGS: No intracranial hemorrhage, mass, edema or shift of mid-line structures. No acute infarcti on changes seen. No abnormal extra-axial fluid collections. No significant atrophy. Minimal chronic i schemic changes are present. Focal fatty mass in the region of the pineal not of long-term significan ce. Ventricles are within normal range. Mastoid air cells and visualized portions of the paranasal sinuses are clear. No acute bony findings. IMPRESSION: Negative non-contrast CT head examination for acute finding.
--- NOTE | 2018-08-04 15:21 | RAD REPORT ---
EXAM DESCRIPTION: RAD - Chest Single View - 08/04/2018 3:14 pm CLINICAL HISTORY: Slurred speech, altered mental status COMPARISON: April 2018 TECHNIQUE: AP portable chest image was obtained 1501 hour . FINDINGS: Interstitial markings are prominent but not substantially different. No mass or consolidat ion. Heart and vasculature are normal. No measurable pleural effusion and no pneumothorax. No acute b ana abnormality seen. No acute aortic findings suspected. IMPRESSION: No acute cardiopulmonary process. Chest findings are similar to comparison.
[2018-08-04 15:36] LABS: ALT/SGPT 41 U/L (12-78); AST/SGOT 57 U/L (15-37); Albumin 2.2 g/dL (3.4-5.0); Alkaline Phosphatase 310 U/L (45-117); BUN Blood Urea Nitrogen 7 mg/dL (7-18); Bicarbonate 24 mmol/L (21-32); Bilirubin Direct 0.9 mg/dL (0-0.2); Bilirubin Total 2.1 mg/dL (0.2-1.0); Glucose Level 204 mg/dL (74-106); Lipase 263 U/L (73-393); Magnesium 1.6 mg/dL (1.8-2.4); NT PRO-BNP 68 pg/mL (<125); Potassium 3.7 mmol/L (3.5-5.1); Protein, Total 6.5 g/dL (6.4-8.2); Sodium Level 137 mmol/L (136-145)
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
--- NOTE | 2018-08-04 16:40 | EDPHYS ---
Physician Documentation [facility] Name: Tonny Cardona Age: 62 yrs Sex: Male : 1955 Arrival Date: 08/04/2018 Time: 14:06 Bed 27 Private MD: Alexis Flower R ED Physician Milan Coronado HPI: 08/04 14:27 This 62 yrs old Male presents to ER via Ambulatory with complaints of Chest jmm Pain, Shortness Of Breath. 14:27 The patient presents with confusion. Onset: The symptoms/episode began/occurred jmm gradually, 3 week(s) ago. Possible causes: cirrhosis. Associated signs and symptoms: Pertinent positives: chest pain, shortness of breath. This is a 62 year old male that presents to the ED with complaints of confusion, chest pain, shortness of breath ongoing for the past 3 week. Patient admits to not taking his lactulose as directed. . Historical: - Allergies: 14:19 No Known Allergies; la1 - PMHx: 14:19 Cirrhosis; Diabetes - NIDDM; Hypertension; psoriasis; la1 - PSHx: 17:31 Unable to obtain; rv - Immunization history:: Adult Immunizations up to date. - Social history:: Smoking status: Patient/guardian denies using tobacco, Patient/guardian denies using alcohol. - Ebola Screening: : No symptoms or risks identified at this time. ROS: 14:27 Constitutional: Negative for fever, chills, and weight loss. jmm 14:27 Cardiovascular: Positive for chest pain. 14:27 Respiratory: Positive for shortness of breath. 14:27 Neuro: Positive for altered mental status. 14:27 All other systems are negative. Exam: 14:27 Head/Face: atraumatic. Eyes: EOMI, no conjunctival erythema appreciated ENT: Moist jmm Mucus Membranes Neck: Trachea midline, Supple Chest/axilla: Normal chest wall appearance and motion. Cardiovascular: Regular rate and rhythm. No edema appreciated Respiratory: Normal respirations, no respiratory distress appreciated 14:27 Constitutional: The patient appears awake, comfortable, non-diaphoretic, non-toxic. 14:27 Cardiovascular: Rate: normal, Rhythm: regular. 14:27 Respiratory: the patient does not display signs of respiratory distress, Respirations: normal, Breath sounds: are clear throughout. 14:27 Abdomen/GI: Inspection: abdomen appears normal, Bowel sounds: normal. 14:27 Back: ROM is normal. 14:27 Musculoskeletal/extremity: ROM: intact in all extremities. 14:27 Skin: Appearance: Color: normal in color. 14:27 Neuro: Orientation: is normal, Mentation: is normal, Memory: is normal. 14:27 Psych: Behavior/mood is pleasant, cooperative. Vital Signs: 14:23 BP 110 / 66; Pulse 79; Resp 13; Pulse Ox 100% on R/A; Weight 104.33 kg; Height 5 ft. 6 la1 in. (167.64 cm); 14:30 BP 110 / 65 LA; Pulse 78; Resp 23 S; Pulse Ox 99% on R/A; rv 15:09 Temp 98.4(O); lt1 15:30 BP 106 / 65 LA; Pulse 74; Resp 23 S; Pulse Ox 99% on R/A; rv 16:00 BP 117 / 69 LA; Pulse 72; Resp 20 S; Pulse Ox 100% on R/A; rv 16:30 BP 121 / 70 LA; Pulse 71; Resp 17 S; Pulse Ox 99% on R/A; rv 17:32 BP 129 / 69 LA Supine; Pulse 71; Resp 23 S; Pulse Ox 99% on R/A; rv 14:23 Body Mass Index 37.12 (104.33 kg, 167.64 cm) la1 MDM: 14:27 Patient medically screened. [facility] 16:37 Data reviewed: vital signs, nurses notes. Counseling: I had a detailed discussion with [facility] the patient and/or guardian regarding: the historical points, exam findings, and any diagnostic results supporting the discharge/admit diagnosis, lab results, radiology results, the need for further work-up and treatment in the hospital. ED course: I discussed the patient with Dr. coello whom accepted admission. 08/04 14:29 Order name: Basic Metabolic Panel [facility] 08/04 14:29 Order name: CBC with Diff [facility] 08/04 14:29 Order name: LFT's; Complete Time: 15:37 [facility] 08/04 14:29 Order name: Magnesium; Complete Time: 15:37 [facility] 08/04 14:29 Order name: NT PRO-BNP; Complete Time: 15:37 [facility] 08/04 14:29 Order name: PT-INR; Complete Time: 15:10 [facility] 08/04 14:29 Order name: Troponin (emerg Dept Use Only); Complete Time: 15:37 [facility] 08/04 14:29 Order name: XRAY Chest (1 view); Complete Time: 15:31 [facility] 08/04 14:29 Order name: AMMONIA; Complete Time: 15:15 [facility] 08/04 14:29 Order name: Lipase; Complete Time: 15:37 [facility] 08/04 14:29 Order name: CT Head Brain wo Cont; Complete Time: 15:31 [facility] 08/04 14:29 Order name: Basic Metabolic Panel; Complete Time: 15:37 [facility] 08/04 14:29 Order name: CBC with Automated Diff; Complete Time: 15:10 [facility] 08/04 16:29 Order name: Urine Dipstick--Ancillary (enter results) 08/04 14:29 Order name: EKG; Complete Time: 14:30 [facility] 08/04 14:29 Order name: Cardiac monitoring; Complete Time: 14:49 [facility] 08/04 14:29 Order name: EKG - Nurse/Tech; Complete Time: 14:49 [facility] 08/04 14:29 Order name: IV Saline Lock; Complete Time: 14:49 [facility] 08/04 14:29 Order name: Labs collected and sent; Complete Time: 14:49 [facility] 08/04 14:29 Order name: O2 Per Protocol; Complete Time: 14:50 [facility] 08/04 14:29 Order name: O2 Sat Monitoring; Complete Time: 14:53 jmm Administered Medications: No medications were administered Disposition: 08/04/18 16:39 Hospitalization ordered by Dejah Coello for Observation. Preliminary diagnosis are Hepatic Encephalopathy, Elevated troponin, Altered Mental Status, Chest Pain. - Bed requested for Telemetry/MedSurg (observation). - Status is Observation. rv - Condition is Stable. - Problem is new. - Symptoms are unchanged. UTI on Admission? No Addendum: 08/06/2018 09:29 Co-signature as Attending Physician, Milan Coronado MD I agree with the assessment and c ocampo plan of care. Signatures: Dispatcher [employer] Milan Kaur MD MD cha Mickail, Joel, PA PA Ulisses Sneed RN RN laEster Ramos RN RN df Vicente, Ronaldo, RN RN rv Corrections: (The following items were deleted from the chart) 08/04 17:11 16:39 Hospitalization Ordered by Dejah Coello MD for Observation. Preliminary df diagnosis is Hepatic Encephalopathy; Elevated troponin; Altered Mental Status; Chest Pain. Bed requested for Telemetry/MedSurg (observation). Status is Observation. Condition is Stable. Problem is new. Symptoms are unchanged. UTI on Admission? No. m 17:47 17:11 08/04/2018 16:39 Hospitalization Ordered by Dejah Coello MD for Observation. rv Preliminary diagnosis is Hepatic Encephalopathy; Elevated troponin; Altered Mental Status; Chest Pain. Bed requested for Telemetry/MedSurg (observation). Status is Observation. Condition is Stable. Problem is new. Symptoms are unchanged. UTI on Admission? No. df
--- NOTE | 2018-08-04 16:47 | P.HP ---
Certification for Inpatient Patient admitted to: Observation With expected LOS: <2 Midnights Patient will require the following post-hospital care: None Practitioner: I am a practitioner with admitting privileges, knowledge of patient current condition, hospital course, and medical plan of care. Services: Services provided to patient in accordance with Admission requirements found in Title 42 Section 412.3 of the Code of Federal Regulations Patient History Date of Service: 08/04/18 Primary Care Provider: None Reason for admission: Hepatic Encephalopathy History of Present Illness: 62-year-old male with significant past medical history of hypertension, diabetes , cirrhosis, alcoholic liver cirrhosis, ascites, who presented to the ED complaining of having slurred speech. Patient's daughter at bedside stated that she saw him at [facility] this morning and patient appeared to have slur speech and was lethargic postop day and thus decided to bring the patient to the hospital for further checkup. Patient denies having any fever chills nausea vomiting abdominal pain or any other associated symptoms. Aside from having altered mental status and slower speech no other symptoms were noted. Patient states he has not been taking his lactulose laid the the causes him to have diarrhea and he does not like getting up to the patient denies having any alcohol consumption recently. In the ER patient was examined and was alert and oriented x2 did appear to be lethargic. Speech was not slurred anymore. Patient however did appear to be very weak. Denied having any shortness of breath chest pain or any other associated symptoms. Patient was admitted to the hospital for further workup of his hepatic encephalopathy. Head CT initially was negative for any acute abnormality Allergies No Known Allergies Allergy (Unverified 05/23/18 21:46) Home Medications: Carvedilol [Coreg*] 3.125 mg PO BID 6AM 6PM #60 tab 05/26/18 Doxycycline Hyclate 100 mg PO BID #14 tablet 05/26/18 Folic Acid 1 mg PO DAILY #90 tablet 05/26/18 Furosemide [Lasix*] 40 mg PO BIDL #60 tab 05/26/18 Lactulose 15 ml PO TID PRN #1 bottle 05/26/18 Lisinopril [Prinivil*] 10 mg PO BID #60 tab 05/26/18 Mupirocin Oint [Bactroban 2% Ointment*] 1 appl TOP BID #1 tube 12/29/18 Pantoprazole [Protonix Tab*] 40 mg PO DAILYAC #30 tab 05/26/18 Sulfamethoxazole/Trimethoprim [Bactrim Ds Tablet] 1 each PO BID #14 tablet 05/26 Thiamine HCl [Vitamin B-1*] 100 mg PO DAILY #90 tablet 05/26/18 - Past Medical/Surgical History Diabetic: Yes -: DM II -: HTN -: CHF -: psoriasis -: HLD -: hernia repair - Social History Alcohol use: Yes CD- Drugs: No Caffeine use: Yes Review of Systems 10-point ROS is otherwise unremarkable Physical Examination - Physical Exam General: In no apparent distress, Oriented x2, Other (Slow to Respond and appears to be Lethargic) HEENT: Atraumatic, PERRLA, Mucous membr. moist/pink, EOMI, Scleral icterus Neck: Supple, 2+ carotid pulse no bruit, No LAD, Without JVD or thyroid abnormality Respiratory: Clear to auscultation bilaterally, Normal air movement Cardiovascular: Regular rate/rhythm, Normal S1 S2 Gastrointestinal: Normal bowel sounds, Succussion splash, Ascites Musculoskeletal: No tenderness Integumentary: No rashes Neurological: Normal tone, Normal reflexes 2+, Abnormal speech, Abnormal strength Lymphatics: No axilla or inguinal lymphadenopathy - Studies Laboratory Data (last 24 hrs) 08/04/18 14:44: PT 15.3 H, INR 1.31 08/04/18 14:44: WBC 5.6, Hgb 11.9 L, Hct 34.4 L, Plt Count 55 L 08/04/18 14:44: Sodium 137, Potassium 3.7, BUN 7, Creatinine 0.78, Glucose 204 H , Magnesium 1.6 L, Total Bilirubin 2.1 H, AST 57 H, ALT 41, Alkaline Phosphatase 310 H, Lipase 263 Assessment and Plan - Problems (Diagnosis) (1) Hepatic encephalopathy Current Visit: Yes Status: Acute Plan: Hepatic encephalopathy most likely secondary to medication noncompliance -ammonia level of 95 -patient appears to be lethargic in alert and oriented x2 on my examining -was start patient on lactulose 20 mg p.o. b.i.d. at this time -consider patient to be started on Rifaxmin on discharge (2) Alcoholic cirrhosis Current Visit: Yes Status: Chronic Plan: Alcoholic liver Cirrhosis -currently patient does not drink. -educated on abstinent Qualifiers: Ascites presence: with ascites Qualified Code(s): K70.31 - Alcoholic cirrhosis of liver with ascites (3) Elevated troponin Current Visit: Yes Status: Acute Plan: Most likely secondary to hepatic cardiac syndrome -echocardiogram 2 months ago within normal limit -will get from stress test done at this time (4) Diabetes mellitus Onset Date: 05/24/18 Current Visit: No Status: Chronic Qualifiers: Diabetes mellitus type: type 2 Diabetes mellitus custodial insulin use: without rat exterminator use Diabetes mellitus complication status: without complication Qualified Code(s): E11.9 - Type 2 diabetes mellitus without complications (5) HTN (hypertension) Onset Date: 05/24/18 Current Visit: No Status: Chronic Qualifiers: Hypertension type: essential hypertension (6) Psoriasis Onset Date: 05/24/18 Current Visit: No Status: Chronic Discharge Plan: Home Plan to discharge in: 48 Hours - Advance Directives Does patient have a Living Will: No Does patient have a Durable POA for Healthcare: No - Code Status/Comfort Care Code Status Assessed: Yes Critical Care: No
[2018-08-04] MEDS ORDERED: GLUCAGON 1 MG/VIAL IM PRN (17:33)
[2018-08-04] MEDS ORDERED: ONDANSETRON 4 MG/2 ML VIAL IV PRN (17:33)
[2018-08-04] MEDS ORDERED: D50W 25 GM/50 ML SYRINGE IV PRN (17:33)
[2018-08-04 18:09] VITALS: BMI 38.0
[2018-08-04 19:18] LABS: Urine Blood NEGATIVE (NEG); Urine Glucose NEGATIVE (NEG); Urine Protein NEGATIVE (NEG); Urine Specific Gravity 1.015 (1.005-1.030)
[2018-08-04] MEDS: LACTULOSE 20 GM/30 ML UCUP PO SCH (20:51)
[2018-08-04] MEDS: LISINOPRIL 20 MG TAB PO SCH (20:51)
[2018-08-04] MEDS: INSULIN -REGULAR HUMAN 50 UNIT/0.5 ML ML SQ SCH (20:53)
--- NOTE | 2018-08-04 21:10 | EKG ---
Test Date: 2018-08-04 Test Time: 14:15:13 Coffee Attendant: DARIANT MEASUREMENT RESULTS: Intervals: Rate: 80 TX: 152 QRSD: 86 QT: 398 QTc: 459 [place]: P: 27 TX: 152 QRS: -30 T: 14 INTERPRETIVE STATEMENTS: Sinus rhythm with premature atrial complexes Left axis deviation Cannot rule out Anterior infarct, age undetermined Abnormal ECG Compared to ECG 05/23/2018 18:29:08 Atrial premature complex(es) now present Sinus arrhythmia no longer present Myocardial infarct finding still present Electronically Signed On 08-04-18 21:09:27 METER READER CHIEF by Edmund Dewey
[2018-08-05] MEDS ORDERED: MAGNESIUM SULFATE 1 gm IVPB 1 GM/100 ML BAG IV ONE (00:53)
[2018-08-05 04:18] LABS: Absolute Lymphocytes (CBC) 1.7 K/uL (0.7-4.9); Absolute Monocytes 0.7 K/uL (0.1-1.3); Absolute Neutrophil 2.5 K/uL (1.8-8.0); Basophils % 1.3 % (0-1.3); Eosinophils % 6.7 % (0-4.4); Hematocrit 33.9 % (39.6-49.0); Lymphocytes % 31.8 % (15.3-44.8); MPV 9.7 fL (7.6-11.3); Monocytes % 13.4 % (3.3-12.3)
[2018-08-05 04:31] LABS: ALT/SGPT 39 U/L (12-78); AST/SGOT 58 U/L (15-37); Albumin 2.2 g/dL (3.4-5.0); Alkaline Phosphatase 226 U/L (45-117); BUN Blood Urea Nitrogen 8 mg/dL (7-18); Bicarbonate 26 mmol/L (21-32); Bilirubin Total 3.7 mg/dL (0.2-1.0); Glucose Level 157 mg/dL (74-106); Potassium 3.9 mmol/L (3.5-5.1); Protein, Total 6.1 g/dL (6.4-8.2); Sodium Level 141 mmol/L (136-145)
[2018-08-05 04:46] LABS: Magnesium 1.9 mg/dL (1.8-2.4); Phosphorus 4.1 mg/dL (2.5-4.9)
[2018-08-05 04:56] LABS: Blood Morphology Comment NOT SEEN (NOT SEEN); Platelet Estimate DECR; Urine White Blood Cell Casts OK
[2018-08-05] MEDS ORDERED: POTASSIUM CL SA 10 MEQ TAB PO ONE (04:59)
[2018-08-05] MEDS: INSULIN -REGULAR HUMAN 50 UNIT/0.5 ML ML SQ SCH ×4 (07:30→21:00)
[2018-08-05] MEDS: LISINOPRIL 20 MG TAB PO SCH ×2 (09:07→21:24)
[2018-08-05] MEDS: LACTULOSE 20 GM/30 ML UCUP PO SCH ×2 (09:07→21:24)
--- NOTE | 2018-08-05 10:51 | P.PN ---
Subjective Date of Service: 08/05/18 Primary Care Provider: None Chief Complaint: Hepatic Encephalopathy Pt seen and examined at bedside. Chart Reviewed. Case DW with family at bedside. Pt this AM still lethargic but AAOx3 now. No c/o overnight. Review of Systems 10-point ROS is otherwise unremarkable Physical Examination - Vital Signs Temperature: 97.8 F Blood Pressure: 135/70 Pulse: 80 Respirations: 16 Pulse Ox (%): 97 - Physical Exam General: Alert, In no apparent distress, Other (Illappearing ) HEENT: Atraumatic, PERRLA, EOMI, Scleral icterus Neck: Supple, JVD not distended Respiratory: Clear to auscultation bilaterally, Normal air movement Cardiovascular: Regular rate/rhythm, Normal S1 S2 Gastrointestinal: Normal bowel sounds, Succussion splash, Ascites Musculoskeletal: No tenderness Integumentary: No rashes Neurological: Normal speech, Normal tone, Normal affect Lymphatics: No axilla or inguinal lymphadenopathy - Studies Laboratory Data (last 24 hrs) 08/04/18 14:44: PT 15.3 H, INR 1.31 08/04/18 14:44: WBC 5.6, Hgb 11.9 L, Hct 34.4 L, Plt Count 55 L 08/04/18 14:44: Sodium 137, Potassium 3.7, BUN 7, Creatinine 0.78, Glucose 204 H , Magnesium 1.6 L, Total Bilirubin 2.1 H, AST 57 H, ALT 41, Alkaline Phosphatase 310 H, Lipase 263 Medications List Reviewed: Yes Assessment And Plan - Current Problems (Diagnosis) (1) Hepatic encephalopathy Current Visit: Yes Status: Acute Plan: Hepatic encephalopathy most likely secondary to medication noncompliance -ammonia level of 95 in ER now is 71 -patient appears to be lethargic but AAOX3 now -was start patient on lactulose 20 mg p.o. b.i.d. at this time -consider patient to be started on Rifaxmin on discharge (2) Total bilirubin, elevated Current Visit: Yes Status: Acute Plan: Most Likely 2.2 to Alcoholic Cirrhosis -Will get Abdominal US to r/o acute abnormality (3) Alcoholic cirrhosis Current Visit: Yes Status: Chronic Plan: Alcoholic liver Cirrhosis. MELD score of 14 with 6% 3month mortality -currently patient does not drink since [place] per Family at bedside. -educated on abstinent Qualifiers: Ascites presence: with ascites Qualified Code(s): K70.31 - Alcoholic cirrhosis of liver with ascites (4) Elevated troponin Current Visit: Yes Status: Acute Plan: Most likely secondary to hepatic cardiac syndrome -echocardiogram 2 months ago within normal limit -Pt sees Dr Chakraborty who apparently has done ECHO and stress test 6 week ago per family and was negative. -Will attempt to get records (5) Diabetes mellitus Onset Date: 05/24/18 Current Visit: No Status: Chronic Qualifiers: Diabetes mellitus type: type 2 Diabetes mellitus termite helper insulin use: without [facility] use Diabetes mellitus complication status: without complication Qualified Code(s): E11.9 - Type 2 diabetes mellitus without complications (6) HTN (hypertension) Onset Date: 05/24/18 Current Visit: No Status: Chronic Qualifiers: Hypertension type: essential hypertension (7) Psoriasis Onset Date: 05/24/18 Current Visit: No Status: Chronic
[2018-08-05] MEDS: PANTOPRAZOLE 40MG TABLET PO SCH ×2 (11:18→16:53)
[2018-08-06 05:19] LABS: Absolute Lymphocytes (CBC) 1.7 K/uL (0.7-4.9); Absolute Monocytes 0.6 K/uL (0.1-1.3); Absolute Neutrophil 2.2 K/uL (1.8-8.0); Eosinophils % 6.5 % (0-4.4); Hematocrit 33.6 % (39.6-49.0); Lymphocytes % 35.3 % (15.3-44.8); MPV 9.8 fL (7.6-11.3); Monocytes % 12.1 % (3.3-12.3); RBC Red Blood Cell Count 3.37 M/uL (4.33-5.43)
[2018-08-06 05:37] LABS: ALT/SGPT 40 U/L (12-78); AST/SGOT 58 U/L (15-37); Albumin 2.1 g/dL (3.4-5.0); Alkaline Phosphatase 155 U/L (45-117); BUN Blood Urea Nitrogen 7 mg/dL (7-18); Bicarbonate 25 mmol/L (21-32); Bilirubin Total 3.7 mg/dL (0.2-1.0); Glucose Level 126 mg/dL (74-106); Potassium 4.1 mmol/L (3.5-5.1); Protein, Total 6.1 g/dL (6.4-8.2); Sodium Level 142 mmol/L (136-145)
[2018-08-06] MEDS: PANTOPRAZOLE 40MG TABLET PO SCH ×2 (07:30→17:22)
[2018-08-06] MEDS: INSULIN -REGULAR HUMAN 50 UNIT/0.5 ML ML SQ SCH ×4 (07:30→21:00)
[2018-08-06] MEDS ORDERED: REGADENOSON 0.4 MG/5 ML SYR IV ONE (08:05)
[2018-08-06] MEDS: LISINOPRIL 20 MG TAB PO SCH ×2 (08:32→21:34)
[2018-08-06] MEDS: LACTULOSE 20 GM/30 ML UCUP PO SCH ×5 (08:32→21:35)
--- NOTE | 2018-08-06 08:44 | RAD REPORT ---
EXAM DESCRIPTION: US - Abdomen Exam Complete - 08/06/2018 8:04 am CLINICAL HISTORY: Abdominal pain. elevated tbilirubin COMPARISON: Abdomen Exam Complete dated 05/24/2018; Mri Abdomen W/Wo Cont dated 07/10/2018 FINDINGS: Cirrhotic liver echotexture is seen with nodular hepatic contour. [place] hypoechoic lesion is seen in the right lobe 18 x 17 mm. No intrahepatic biliary dilatation. Mild ascites. No gallstones are present. Gallbladder wall is slightly thickened measuring 6-7 mm. Common bile duct is normal in caliber measuring 5 millimeters. Both kidneys are normal in size, shape and echotexture. No hydronephrosis, focal lesion of concern or perinephric fluid. The spleen is enlarged measuring 16 cm. The pancreas and aorta are obscured by bowel gas. The visualized aspects of the IVC are grossly normal. IMPRESSION: Prominent liver cirrhosis is seen with mild ascites. Gallbladder wall thickening is noted without gallstones seen. [id number] splenomegaly.
--- NOTE | 2018-08-06 09:32 | TREADPHA ---
DX: CHEST PAIN Date of Study: 08/06/2018 Ht: 5 6 Wt: 235 lb 14.4 oz Consulting Physician: LIBERTY MEDICATIONS: DEXTROSE, GLUCAGEN, NOVOLIN-R, PRINIVIL, CEPHULAC HISTORY: 62 YEAR OLD MALE WITH COMPLIANTS OF SHORTNESS OF BREATH. HISTORY OF CIRRHOSIS, NON-INSULIN DEPENDENT DIABETES MELLITUS AND PRORIASIS. PHYSICIAL EXAMINATION: RESTING B.P.: 101/78 RESTING H.R.: 69 RESTING EKG: SINUS RHYTHM, RIGHT BUNDLE BRANCH BLOCK PROTOCOL: LEXISCAN EXERCISE TIME: 3:30 B.P. AT [place] STRESS: 132/70 IMPRESSION: LEXISCAN INJECTED, FOLLOWED BY CARDIOLITE PER PROTOCOL. SEE NUCLEAR MEDICINE REPORT. NO SUPRAVENTRICULAR TACHYCARDIA. NO VENTRICULAR TACHYCARDIA. NO PREMATURE ATRIAL COMPLEXES. NO PREMATURE VENTRICULAR COMPLEXES. PATIENT REPORTED NO CHEST PAIN OR TIGHTNESS THORUGHOUT THE PROCEDURE OR RECOVERY. NON-DIAGNOSTIC ELECTROCARDIOGRAM WITH LEXISCAN STRESS.
--- NOTE | 2018-08-06 09:53 | RAD REPORT ---
EXAM DESCRIPTION: NM - Rest Stress Cardiac Imaging - 08/06/2018 9:41 am CLINICAL HISTORY: CP Chest pain. COMPARISON: No comparisons TECHNIQUE: The patient was administered approximately 10mCi of Tc 99m Sestamibi prior to resting SPE CT imaging of the heart. The patient was then administered approximately 30 mCi of Tc 99m Sestamibi f ollowing exercise or pharmacologic stress. Multiplanar SPECT images were reviewed. FINDINGS: No stress induced ischemic defect is seen to suggest stress induced ischemia. No fixed def ect is seen to suggest hibernating myocardium or scarred myocardium. The end diastolic volume is 126 ml, the end systolic volume is 44 ml, and the ejection fraction is 65 %. IMPRESSION: No stress induced ischemia.
--- NOTE | 2018-08-06 14:09 | P.PN ---
Subjective Date of Service: 08/06/18 Primary Care Provider: None Chief Complaint: Hepatic Encephalopathy Pt seen and examined at bedside. Chart Reviewed. Case DW with family at bedside. Pt this AM still lethargic but AAOx3 now. No c/o overnight. Review of Systems 10-point ROS is otherwise unremarkable Physical Examination - Vital Signs Temperature: 97.8 F Blood Pressure: 138/74 Pulse: 79 Respirations: 16 Pulse Ox (%): 98 - Physical Exam General: Alert, In no apparent distress HEENT: Atraumatic, PERRLA, EOMI, Scleral icterus Neck: Supple, JVD not distended Respiratory: Clear to auscultation bilaterally, Normal air movement Cardiovascular: Regular rate/rhythm, Normal S1 S2 Gastrointestinal: Normal bowel sounds, No tenderness Musculoskeletal: No tenderness Integumentary: No rashes Neurological: Normal speech, Normal tone, Normal affect Lymphatics: No axilla or inguinal lymphadenopathy - Studies Medications List Reviewed: Yes Assessment And Plan - Current Problems (Diagnosis) (1) Hepatic encephalopathy Current Visit: Yes Status: Acute Plan: Hepatic encephalopathy most likely secondary to medication noncompliance -ammonia level of 94 today. Elevated from yesterday -patient appears to be lethargic but AAOX3 now -Increase Lactulose to 30mg TID now -consider patient to be started on Rifaxmin on discharge (2) Total bilirubin, elevated Current Visit: Yes Status: Acute Plan: Most Likely 2.2 to Alcoholic Cirrhosis -Abdominal u/s with liver cirrhosis and negative gallbladder pathology (3) Alcoholic cirrhosis Current Visit: Yes Status: Chronic Plan: Alcoholic liver Cirrhosis. MELD score of 14 with 6% 3month mortality -currently patient does not drink since [place] per Family at bedside. -educated on abstinent Qualifiers: Ascites presence: with ascites Qualified Code(s): K70.31 - Alcoholic cirrhosis of liver with ascites (4) Elevated troponin Current Visit: Yes Status: Acute Plan: Most likely secondary to hepatic cardiac syndrome -echocardiogram 2 months ago within normal limit -Stress test negative today -Pt sees Dr Chakraborty who apparently has done ECHO and stress test 6 week ago per family and was negative. -Will attempt to get records (5) Diabetes mellitus Onset Date: 05/24/18 Current Visit: No Status: Chronic Qualifiers: Diabetes mellitus type: type 2 Diabetes mellitus rn long term care insulin use: without halfway use Diabetes mellitus complication status: without complication Qualified Code(s): E11.9 - Type 2 diabetes mellitus without complications (6) HTN (hypertension) Onset Date: 05/24/18 Current Visit: No Status: Chronic Qualifiers: Hypertension type: essential hypertension (7) Psoriasis Onset Date: 05/24/18 Current Visit: No Status: Chronic Discharge Plan: Home Plan to discharge in: 48 Hours - Code Status/Comfort Care Code Status Assessed: Yes Critical Care: No
[2018-08-06] MEDS ORDERED: ALPRAZOLAM 0.25 MG TABLET PO PRN (19:29)
[2018-08-06] MEDS: hydrOXYzine HCl 25 MG TAB PO SCH (21:00)
[2018-08-06] MEDS: CARVEDILOL 3.125 MG TAB PO SCH (21:34)
[2018-08-07 06:20] LABS: Absolute Lymphocytes (CBC) 1.5 K/uL (0.7-4.9); Absolute Monocytes 0.6 K/uL (0.1-1.3); Basophils % 1.3 % (0-1.3); Eosinophils % 6.8 % (0-4.4); Hematocrit 33.5 % (39.6-49.0); Lymphocytes % 33.2 % (15.3-44.8); MPV 10.6 fL (7.6-11.3); Monocytes % 13.6 % (3.3-12.3); RBC Red Blood Cell Count 3.34 M/uL (4.33-5.43)
[2018-08-07 06:38] LABS: ALT/SGPT 39 U/L (12-78); AST/SGOT 57 U/L (15-37); Albumin 2.1 g/dL (3.4-5.0); Alkaline Phosphatase 130 U/L (45-117); BUN Blood Urea Nitrogen 11 mg/dL (7-18); Bicarbonate 26 mmol/L (21-32); Bilirubin Total 2.8 mg/dL (0.2-1.0); Glucose Level 166 mg/dL (74-106); Protein, Total 6.2 g/dL (6.4-8.2); Sodium Level 142 mmol/L (136-145)
[2018-08-07] MEDS: INSULIN -REGULAR HUMAN 50 UNIT/0.5 ML ML SQ SCH ×2 (07:30→11:30)
[2018-08-07 08:13] LABS: Protime INR 1.44
[2018-08-07] MEDS ORDERED: SPIRONOLACTONE 100 MG TAB PO SCH (09:00)
[2018-08-07] MEDS ORDERED: THIAMINE HCL 100 MG TABLET PO SCH (09:00)
[2018-08-07] MEDS ORDERED: FUROSEMIDE 40 MG TABLET PO SCH (09:00)
[2018-08-07] MEDS ORDERED: FOLIC ACID 1 MG TABLET PO SCH (09:00)
[2018-08-07 09:53] VITALS: TEMP 97.5
[2018-08-07] MEDS: PANTOPRAZOLE 40MG TABLET PO SCH (10:04)
[2018-08-07] MEDS: hydrOXYzine HCl 25 MG TAB PO SCH ×2 (10:04→13:11)
[2018-08-07] MEDS: LACTULOSE 20 GM/30 ML UCUP PO SCH ×2 (10:05→13:10)
[2018-08-07] MEDS: LISINOPRIL 20 MG TAB PO SCH (10:05)
[2018-08-07] MEDS: CARVEDILOL 3.125 MG TAB PO SCH (10:05)
[2018-08-07 11:00] LABS: Urine Appearance CLEAR; Urine Bilirubin NEGATIVE (NEG); Urine Blood NEGATIVE (NEG); Urine Color YELLOW; Urine Glucose NEGATIVE (NEG); Urine Protein NEGATIVE (NEG); Urine Specific Gravity 1.015 (1.005-1.030); Urine Urobilinogen 0.2 mg/dL (0.2-1.0)
[2018-08-07 11:02] LABS: Urine Microscopic Reflex NO UMIC
[2018-08-07 14:09] VITALS: BP 123/69
[2018-08-07 14:13] VITALS: O2SAT 95
--- NOTE | 2018-08-07 18:15 | P.DS ---
Admission Date: 08/04/18 Discharge Date: 08/07/18 Primary Care Provider: None Disposition: ROUTINE DISCHARGE Reason for Admission: Hepatic Encephalopathy - Problems (1) Hepatic encephalopathy Status: Acute (2) Total bilirubin, elevated Status: Acute (3) Alcoholic cirrhosis Status: Chronic Qualifiers: Ascites presence: with ascites Qualified Code(s): K70.31 - Alcoholic cirrhosis of liver with ascites (4) Elevated troponin Status: Acute (5) Diabetes mellitus Onset Date: 05/24/18 Status: Chronic Qualifiers: Diabetes mellitus type: type 2 Diabetes mellitus [facility] insulin use: without battery vent plug inserter use Diabetes mellitus complication status: without complication Qualified Code(s): E11.9 - Type 2 diabetes mellitus without complications (6) HTN (hypertension) Onset Date: 05/24/18 Status: Chronic Qualifiers: Hypertension type: essential hypertension (7) Psoriasis Onset Date: 05/24/18 Status: Chronic Brief History of Present Illness: 62-year-old male with significant past medical history of hypertension, diabetes , cirrhosis, alcoholic liver cirrhosis, ascites, who presented to the ED complaining of having slurred speech. Patient's daughter at bedside stated that she saw him at [facility] this morning and patient appeared to have slur speech and was lethargic postop day and thus decided to bring the patient to the hospital for further checkup. Patient denies having any fever chills nausea vomiting abdominal pain or any other associated symptoms. Aside from having altered mental status and slower speech no other symptoms were noted. Patient states he has not been taking his lactulose laid the the causes him to have diarrhea and he does not like getting up to the patient denies having any alcohol consumption recently. In the ER patient was examined and was alert and oriented x2 did appear to be lethargic. Speech was not slurred anymore. Patient however did appear to be very weak. Denied having any shortness of breath chest pain or any other associated symptoms. Patient was admitted to the hospital for further workup of his hepatic encephalopathy. Head CT initially was negative for any acute abnormality Hospital Course: Overall during the hospital stay patient remained stable Patient was initially admitted to the hospital for attic encephalopathy and chest pain with ACS rule out. Echocardiogram and stress test were done here in the hospital which were both within normal limits. Patient is a knee show ammonia in the ER was 94 and patient was alert and oriented x1. Did seem lethargic at that time. Patient was placed on lactulose here in the hospital 30 mg t.i.d.. Patient had several bowel movements while here in the hospital. Day 2 patient's ammonia did trend down however if it trended back up on day 3. This trend up most likely is secondary to dehydration this patient was encouraged to take more fluids and here in the hospital. Patient however remained alert and oriented x3. Patient insisted on going home and was able to answer all the questions appropriately. Patient did not appeared lethargic for somnolent at that time. Patient was thus discharged home under stable condition was asked to follow up with primary care provider in about 1-2 days post discharge. Patient was also asked to follow up with Dr. sultana in about 1- 2 days post discharge as well. Vital Signs/Physical Exam: Temp Pulse Resp BP Pulse Ox 97.5 F 70 16 123/69 99 08/07/18 12:00 08/07/18 12:00 08/07/18 12:00 08/07/18 12:00 08/07/18 12:00 General: Alert, In no apparent distress HEENT: Atraumatic, PERRLA, EOMI Neck: Supple, JVD not distended Respiratory: Clear to auscultation bilaterally, Normal air movement Cardiovascular: Regular rate/rhythm, Normal S1 S2 Gastrointestinal: Normal bowel sounds, No tenderness Musculoskeletal: No tenderness Integumentary: No rashes Neurological: Normal speech, Normal tone, Normal affect Lymphatics: No axilla or inguinal lymphadenopathy Laboratory Data at Discharge: WBC 4.4 K/uL (4.3-10.9) 08/07/18 06:00 Hgb 11.5 g/dL (13.6-17.9) L 08/07/18 06:00 Hct 33.5 % (39.6-49.0) L 08/07/18 06:00 Plt Count 51 K/uL (152-406) L 08/07/18 06:00 PT 16.8 SECONDS (9.5-12.5) H 08/07/18 06:05 INR 1.44 08/07/18 06:05 APTT 36.9 SECONDS (24.3-36.9) 08/07/18 06:05 Sodium 142 mmol/L (136-145) 08/07/18 06:00 Potassium 4.0 mmol/L (3.5-5.1) 08/07/18 06:00 BUN 11 mg/dL (7-18) 08/07/18 06:00 Creatinine 0.75 mg/dL (0.55-1.3) 08/07/18 06:00 Glucose 166 mg/dL (74-106) H 08/07/18 06:00 Phosphorus 4.1 mg/dL (2.5-4.9) 08/05/18 04:02 Magnesium 1.9 mg/dL (1.8-2.4) 08/05/18 04:02 Total Bilirubin 2.8 mg/dL (0.2-1.0) H 08/07/18 06:00 AST 57 U/L (15-37) H 08/07/18 06:00 ALT 39 U/L (12-78) 08/07/18 06:00 Alkaline Phosphatase 130 U/L (45-117) H 08/07/18 06:00 Lipase 263 U/L (73-393) 08/04/18 14:44 Home Medications: Lisinopril [Prinivil] 20 mg PO BID 08/04/18 Metformin ER [Glucophage ER] 500 mg PO BID 08/04/18 ALPRAZolam [Xanax] 1 mg PO BID PRN 08/05/18 Carvedilol [Coreg] 3.125 mg PO BID 08/05/18 Clobetasol Propionate/Emoll [Clobetasol Emollient 0.05% Crm] 15 gm TP BID Folic Acid 1 mg PO DAILY 08/05/18 Furosemide [Lasix] 40 mg PO DAILY 08/05/18 Hydroxyzine HCl [Atarax] 25 mg PO TID 08/05/18 Spironolactone [Aldactone] 100 mg PO DAILY 08/05/18 Thiamine HCl [Vitamin B-1] 100 mg PO DAILY 08/05/18 Tramadol HCl [Ultram] 50 mg PO Q6HP PRN 08/05/18 Triamcinolone Acetonide 15 gm TP BID 08/05/18 levoFLOXacin [Levaquin] 500 mg PO DAILY 08/05/18 Lactulose 30 ml PO BID #4 solution 08/07/18 New Medications: Lactulose 30 ml PO BID #4 solution
== END 2018-08-07 17:34 | disposition home or self-care (01) ==
LOC: ER 14:05 → ERHOLD 16:39 → 2ND 17:31
PROVIDERS: ADMIT Family Medicine; ATTEND Family Medicine
DX: K72.00 Acute and subacute hepatic failure without coma (principal); R07.9 Chest pain, unspecified; K70.31 Alcoholic cirrhosis of liver with ascites; R79.89 Other specified abnormal findings of blood chemistry; E11.9 Type 2 diabetes mellitus without complications; I10 Essential (primary) hypertension; L40.9 Psoriasis, unspecified
CPT/HCPCS: 93005; 93017; 85025 ×4; 80048; 36415 ×3; 82140 ×5; 83735 ×2; 84100; 85610 ×2; 82962 ×12; 80076; 85730; 81003 ×2; 84484; 83690; 80053 ×3; 83880; 70450; 71045; 76700; 78452; 99285; J3475; J2785; A9500; G0378 ×2

== ENCOUNTER 2018-10-24 10:03 | Day surgery (SDC) | payer OTHER ==
--- OUTSIDE RECORDS SUMMARY | 2018-10-24 10:12 | XMS REPORT | Clinical Summary ---
:[address] [facility] Address [address] [place] [address] Care Team Providers Name Role Phone Unavailable Primary Care Provider Unavailable Allergies No Known Allergies Medications Medication Sig Dispensed Refills Start Date End Date Status furosemide (LASIX) 40 MG TK 1 T PO QAM 11 09/17/2018 Active tablet AND QPM lactulose (CHRONULAC) 10 TK 15 ML PO TID 11 09/29/2018 Active gram/15 mL solution lisinopril TK 1 T PO D 0 07/04/2018 Active (PRINIVIL,ZESTRIL) 20 MG tablet Active Problems Problem Noted Date Alcoholic cirrhosis of liver with ascites 10/03/2018 Last Assessment & Plan: Decompensated with mild ascites, hepatic encephalopathy. Outside labs showed a MELD score 17. We will repeat labs to calculate MELD score, and exclude other causes of liver disease. If the score is > 15, we will send him for liver transplant evaluation. Continue abstinence, and attend AA Portal hypertension 10/03/2018 Last Assessment & Plan: He has ascites, controlled; He needs EGD for variceal surveillance. Ascites due to alcoholic cirrhosis 10/03/2018 Last Assessment & Plan: Ascites and leg swelling is controlled with Lasix 40 mg and Aldactone 100 mg a day; restrict salt to 2 gm per day. Low carb but high protein diet. Encephalopathy 10/03/2018 Last Assessment & Plan: Recurrent hospital admission with hepatic encephalopathy. Continue Lactulose to have 2-3 bowel movement a day and add Xifaxan 550 mg twice a day if insurance approves. Screening for endocrine, metabolic and immunity disorder 10/03/2018 Last Assessment & Plan: Serological tests will be completed to determine the presence of immunity to hepatitis A and B. If found susceptible she will be referred to her primary care provider to consider the administration of the appropriate vaccines. Screening for cancer 10/03/2018 Last Assessment & Plan: Cirrhosis, regardless of etiology, is a risk factor for hepatocellular carcinoma (HCC), with an annual incidence of 1.5-7%. We recommend surveillance for HCC with abdominal imaging and alphafetoprotein every 6 months. MRI 07/17 did not show any liver lesion. Metabolic syndrome 10/03/2018 Encounters Date Type Specialty Care Team Description 10/03/2018 Office Visit Hepatology Ankur Dan MD Alcoholic cirrhosis of liver with ascites (HCC); Portal hypertension (HCC); Ascites due to alcoholic cirrhosis (HCC); Encephalopathy; Screening for endocrine, metabolic and immunity disorder; Screening for cancer; Metabolic syndrome 10/01/2018 Telephone Hepatology Nilam Bonilla Appointment after 10/23/2017 Family History Medical History Relation Name Comments Diabetes Brother Hypertension Brother Diabetes Father Liver disease Mother Cancer Sister Relation Name Status Comments Brother Alive Father Mother Sister Social History Tobacco Use Types Packs/Day Years Used Date Former Smoker Quit: 10/03/2017 Alcohol Use Drinks/Week oz/Week Comments No Alcohol Habits Answer Date Recorded How often do you have a drink containing alcohol? Never 10/03/2018 How many drinks containing alcohol do you have on a typical Not asked day when you are drinking? How often do you have six or more drinks on one occasion? Not asked Sex Assigned at Date Recorded Not on file Job Start Date Occupation Industry Not on file Not on file Not on file Travel History Travel Start Travel End No recent travel history available. Last Filed Vital Signs Vital Sign Reading Time Taken Blood Pressure 146/79 10/03/2018 11:09 AM CDT Pulse 87 10/03/2018 11:09 AM CDT Temperature 36.6 C (97.9 F) 10/03/2018 11:09 AM CDT Respiratory Rate 18 10/03/2018 11:09 AM CDT Oxygen Saturation 99% 10/03/2018 11:09 AM CDT Inhaled Oxygen Concentration - - Weight 102.4 kg (225 lb 11.2 oz) 10/03/2018 11:09 AM CDT Height 168.9 cm (5' 6.5") 10/03/2018 11:09 AM CDT Body Mass Index 35.88 10/03/2018 11:09 AM CDT Plan of Treatment Date Type Specialty Care Team Description 12/06/2018 Office Visit Hepatology Ankur Dan MD [address] [address] [phone] Procedures Procedure Name Priority Date/Time Associated Diagnosis Comments CBC W/PLT COUNT & AUTO Routine 10/03/2018 1:54 Alcoholic cirrhosis Results for this DIFFERENTIAL PM CDT of liver with procedure are in ascites (HCC) the results Portal hypertension section. (HCC) Ascites due to alcoholic cirrhosis (HCC) Encephalopathy Screening for endocrine, metabolic and immunity disorder Screening for cancer Metabolic syndrome NILS TITER AND PATTERN Routine 10/03/2018 1:54 Alcoholic cirrhosis Results for this PM CDT of liver with procedure are in ascites (HCC) the results Portal hypertension section. (HCC) Ascites due to alcoholic cirrhosis (HCC) Encephalopathy Screening for endocrine, metabolic and immunity disorder Screening for cancer Metabolic syndrome ALPHA FETOPROTEIN Routine 10/03/2018 1:54 Alcoholic cirrhosis Results for this (AFP), TUMOR MARKER PM CDT of liver with procedure are in ascites (HCC) the results Portal hypertension section. (HCC) Ascites due to alcoholic cirrhosis (HCC) Encephalopathy Screening for endocrine, metabolic and immunity disorder Screening for cancer Metabolic syndrome MITOCHONDRIA M2 Routine 10/03/2018 1:54 Alcoholic cirrhosis Results for this ANTIBODY (IGG) PM CDT of liver with procedure are in ascites (HCC) the results Portal hypertension section. (HCC) Ascites due to alcoholic cirrhosis (HCC) Encephalopathy Screening for endocrine, metabolic and immunity disorder Screening for cancer Metabolic syndrome ACTIN (SMOOTH MUSCLE) Routine 10/03/2018 1:54 Alcoholic cirrhosis Results for this ANTIBODY, IGG PM CDT of liver with procedure are in ascites (HCC) the results Portal hypertension section. (HCC) Ascites due to alcoholic cirrhosis (HCC) Encephalopathy Screening for endocrine, metabolic and immunity disorder Screening for cancer Metabolic syndrome ANTI-NUCLEAR ANTIBODY Routine 10/03/2018 1:54 Alcoholic cirrhosis Results for this (NILS) PM CDT of liver with procedure are in ascites (HCC) the results Portal hypertension section. (HCC) Ascites due to alcoholic cirrhosis (HCC) Encephalopathy Screening for endocrine, metabolic and immunity disorder Screening for cancer Metabolic syndrome CERULOPLASMIN Routine 10/03/2018 1:54 Alcoholic cirrhosis Results for this PM CDT of liver with procedure are in ascites (HCC) the results Portal hypertension section. (HCC) Ascites due to alcoholic cirrhosis (HCC) Encephalopathy Screening for endocrine, metabolic and immunity disorder Screening for cancer Metabolic syndrome [id number], Routine 10/03/2018 1:54 Alcoholic cirrhosis Results for this SERUM PM CDT of liver with procedure are in ascites (HCC) the results Portal hypertension section. (HCC) Ascites due to alcoholic cirrhosis (HCC) Encephalopathy Screening for endocrine, metabolic and immunity disorder Screening for cancer Metabolic syndrome FERRITIN Routine 10/03/2018 1:54 Alcoholic cirrhosis Results for this PM CDT of liver with procedure are in ascites (HCC) the results Portal hypertension section. (HCC) Ascites due to alcoholic cirrhosis (HCC) Encephalopathy Screening for endocrine, metabolic and immunity disorder Screening for cancer Metabolic syndrome IRON, TIBC, % SAT. Routine 10/03/2018 1:54 Alcoholic cirrhosis Results for this (WITHOUT FERRITIN) PM CDT of liver with procedure are in ascites (HCC) the results Portal hypertension section. (HCC) Ascites due to alcoholic cirrhosis (HCC) Encephalopathy Screening for endocrine, metabolic and immunity disorder Screening for cancer Metabolic syndrome HEPATITIS C ANTIBODY Routine 10/03/2018 1:54 Alcoholic cirrhosis Results for this PM CDT of liver with procedure are in ascites (HCC) the results Portal hypertension section. (HCC) Ascites due to alcoholic cirrhosis (HCC) Encephalopathy Screening for endocrine, metabolic and immunity disorder Screening for cancer Metabolic syndrome HEPATITIS B CORE Routine 10/03/2018 1:54 Alcoholic cirrhosis Results for this ANTIBODY, TOTAL PM CDT of liver with procedure are in ascites (HCC) the results Portal hypertension section. (HCC) Ascites due to alcoholic cirrhosis (HCC) Encephalopathy Screening for endocrine, metabolic and immunity disorder Screening for cancer Metabolic syndrome HEPATITIS B SURFACE Routine 10/03/2018 1:54 Alcoholic cirrhosis Results for this ANTIBODY PM CDT of liver with procedure are in ascites (HCC) the results Portal hypertension section. (HCC) Ascites due to alcoholic cirrhosis (HCC) Encephalopathy Screening for endocrine, metabolic and immunity disorder Screening for cancer Metabolic syndrome HEPATITIS B SURFACE Routine 10/03/2018 1:54 Alcoholic cirrhosis Results for this ANTIGEN PM CDT of liver with procedure are in ascites (HCC) the results Portal hypertension section. (HCC) Ascites due to alcoholic cirrhosis (HCC) Encephalopathy Screening for endocrine, metabolic and immunity disorder Screening for cancer Metabolic syndrome HEPATITIS A ANTIBODY, Routine 10/03/2018 1:54 Alcoholic cirrhosis Results for this IGM PM CDT of liver with procedure are in ascites (HCC) the results Portal hypertension section. (HCC) Ascites due to alcoholic cirrhosis (HCC) Encephalopathy Screening for endocrine, metabolic and immunity disorder Screening for cancer Metabolic syndrome HEPATITIS A ANTIBODY, Routine 10/03/2018 1:54 Alcoholic cirrhosis Results for this IGG PM CDT of liver with procedure are in ascites (HCC) the results Portal hypertension section. (HCC) Ascites due to alcoholic cirrhosis (HCC) Encephalopathy Screening for endocrine, metabolic and immunity disorder Screening for cancer Metabolic syndrome PROTHROMBIN TIME/INR Routine 10/03/2018 1:54 Alcoholic cirrhosis Results for this PM CDT of liver with procedure are in ascites (HCC) the results Portal hypertension section. (HCC) Ascites due to alcoholic cirrhosis (HCC) Encephalopathy Screening for endocrine, metabolic and immunity disorder Screening for cancer Metabolic syndrome CBC W/PLT COUNT & AUTO Routine 10/03/2018 1:54 Alcoholic cirrhosis Results for this DIFFERENTIAL PM CDT of liver with procedure are in ascites (HCC) the results Portal hypertension section. (HCC) Ascites due to alcoholic cirrhosis (HCC) Encephalopathy Screening for endocrine, metabolic and immunity disorder Screening for cancer Metabolic syndrome BILIRUBIN, DIRECT Routine 10/03/2018 1:54 Alcoholic cirrhosis Results for this PM CDT of liver with procedure are in ascites (HCC) the results Portal hypertension section. (HCC) Ascites due to alcoholic cirrhosis (HCC) Encephalopathy Screening for endocrine, metabolic and immunity disorder Screening for cancer Metabolic syndrome COMPREHENSIVE Routine 10/03/2018 1:54 Alcoholic cirrhosis Results for this METABOLIC PANEL PM CDT of liver with procedure are in ascites (HCC) the results Portal hypertension section. (HCC) Ascites due to alcoholic cirrhosis (HCC) Encephalopathy Screening for endocrine, metabolic and immunity disorder Screening for cancer Metabolic syndrome after 10/23/2017 Results Hepatitis A antibody, IgG (10/03/2018 1:54 PM CDT) Hep A IgG Reactive (A) Nonreactive [facility] Specimen Blood Performing Organization Address City/State/Zipcode Phone Number [facility] [address] [place] [address] CENTER Mitochondrial Antibodies, M2 (10/03/2018 1:54 PM CDT) Mitochondria M2 Ab <20.0 See Note: U [facility] Comment: Reference Range: NEGATIVE:< OR=20.0 EQUIVOCAL: 20.1-24.9 POSITIVE:> OR=25.0 Specimen Blood Narrative Performed At Performing Lab [facility] EZ [facility] [address] [place] [address] Harlan Salazar MD, PhD, SANDRA Performing Organization Address City/State/Zipcode Phone Number [facility], [place] [address] [facility] [address] [facility] Iron, TIBC, % sat. (without ferritin) (10/03/2018 1:54 PM CDT) Iron 83.0 40.0 - 160.0 ug/dL [facility] TIBC 204 (L) 250 - 450 ug/dL [facility] Iron % Saturation 41 20 - 55 % [facility] Specimen Blood Performing Organization Address City/State/Zipcode Phone Number [facility] [address] [place] [address] CENTER CBC with platelet count + automated diff (10/03/2018 1:54 PM CDT) WBC 6.1 3.5 - 10.5 K/L [facility] RBC 3.21 (L) 4.63 - 6.08 M/L [facility] Hemoglobin 10.8 (L) 13.7 - 17.5 GM/DL [facility] Hematocrit 34.6 (L) 40.1 - 51.0 % [facility] MCV 107.8 (H) 79.0 - 92.2 fL [facility] MCH 33.6 (H) 25.7 - 32.2 pg [facility] MCHC 31.2 (L) 32.3 - 36.5 GM/DL [facility] RDW 14.4 11.6 - 14.4 % [facility] Platelets 56 (L) 150 - 450 K/CU MM [facility] MPV 11.8 9.4 - 12.4 fL [facility] nRBC 0 0 - 0 /100 WBC [facility] % Neutros 52 % [facility] % Lymphs 31 % [facility] % Monos 12 % [facility] % Eos 4 % [facility] % Baso 1 % [facility] # Neutros 3.14 1.78 - 5.38 K/L [facility] # Lymphs 1.88 1.32 - 3.57 K/L [facility] # Monos 0.75 0.30 - 0.82 K/L [facility] # Eos 0.24 0.04 - 0.54 K/L [facility] # Baso 0.05 0.01 - 0.08 K/L [facility] Immature 1 0 - 1 % [facility] Specimen Blood Performing Organization Address City/State/Zipcode Phone Number [facility] [address] [place] [address] CENTER Hepatitis C antibody (10/03/2018 1:54 PM CDT) Hepatitis C Ab Reactive (A) Nonreactive [facility] Specimen Blood Performing Organization Address City/State/Zipcode Phone Number [address] [address] [phone] CENTER Actin (Smooth Muscle) Antibody, IgG (10/03/2018 1:54 PM CDT) Scan Result [facility] Anti-Smooth Muscle Ab <20 See Note: U [facility] Comment: [facility] Reference Range: <20 NEGATIVE > OR=20 POSITIVE Antibodies recognizing actin are the main component of smooth muscle antibodies associated with autoimmune liver disease. Actin antibodies are found in approximately 75% of patients with autoimmune hepatitis (AIH) type 1, approximately 65% of patients with autoimmune cholangitis, approximately 30% of patients with primary biliary cirrhosis, and approximately 2% of healthy people. High values are closely correlated with AIH type 1. Specimen Blood Narrative Performed At Performing Lab [facility] EZ [facility] [address] [place] [address] Harlan Salazar MD, PhD, SANDRA Performing Organization Address City/[facility] Phone Number [place] [address] [place] [address] [id number] (10/03/2018 1:54 PM CDT) A-1 Antitrypsin 159.30 90.00 - 200.00 mg/dL [facility] Specimen Blood Performing Organization Address [facility] Phone Number [address] [address] CENTER Hepatitis A antibody, IgM (10/03/2018 1:54 PM CDT) Hep A IgM HEPATITIS A TEST NEGATIVE Nonreactive [facility] Specimen Blood Performing Organization Address [facility] Phone Number [address] [phone] CENTER NILS Titer & Pattern (10/03/2018 1:54 PM CDT) NILS Titer 1:160 [facility] NILS Pattern Speckled [facility] Specimen Blood Performing Organization Address [facility] Phone Number [address] [phone] CENTER Ceruloplasmin (10/03/2018 1:54 PM CDT) Scan Result [facility] Ceruloplasmin 26 18 - 36 mg/dL [facility] Comment: Adults:Males: 18-36 mg/dL Females: 18-53 mg/dL Pediatrics:Males (mg/dL)Females (mg/dL) 0-30 Days 8-25 3-28 31 Days-11 Month [id number] 1-3 [id number] 4-6 [id number] 7-9 [id number] 10-12 [id number] 13-15 [id number] 16-18 [id number] The pediatric ranges are derived from the following criteria: Amalia VALDES, Adelia WICK, Elba J et al Pediatric reference ranges for [id number] and ceruloplasmin. Clin. Chem 1997; 43:S1999 Pediatric Reference Ranges, 2nd., [place] Amaliaet al. editors. [employer], [place], [place] 1997. Specimen Blood Narrative Performed At This [facility] has an attachment that is not available. Performing Lab [facility] *[facility], [address] [place] [phone] Heather Real MD, PhD Performing Organization Address City/[facility] Phone Number [place] [address] [facility]PORATED [address] [facility] Alpha fetoprotein (AFP), tumor marker (10/03/2018 1:54 PM CDT) Alpha-Fetoprotein 3.5 <10.0 ng/mL [facility] Specimen Blood Performing Organization Address City/[facility]/Zipcode Phone Number [address] [address] [place] Hepatitis B core antibody, total (10/03/2018 1:54 PM CDT) Hep B Core Total Ab NON-REACTIVE Nonreactive [facility] Specimen Blood Performing Organization Address City/[facility]/Zipcode Phone Number [address] [address] CENTER Hepatitis B surface antibody (10/03/2018 1:54 PM CDT) Hep B S Ab <8.0 <8.0 mIU/mL [facility] Specimen Blood Performing Organization Address [facility]/Zipcode Phone Number [address] [address] [place] Hepatitis B surface antigen (10/03/2018 1:54 PM CDT) hepatitis B Surface Ag NON-REACTIVE Nonreactive [facility] Specimen Blood Performing Organization Address [facility] Phone Number [address] [address] [phone] CENTER Pro-time/INR (10/03/2018 1:54 PM CDT) Protime 17.6 (H) 11.7 - 14.7 seconds [facility] INR 1.5 <=5.9 [facility] Specimen Blood Narrative Performed At RECOMMENDED COUMADIN/WARFARIN INR THERAPY [facility] RANGES STANDARD DOSE: 2.0 - 3.0 Includes: PROPHYLAXIS for venous thrombosis, systemic embolization; TREATMENT for venous thrombosis and/or pulmonary embolus. HIGH RISK: Target INR is 2.5-3.5 for patients with mechanical heart valves. Performing Organization Address [facility] Phone Number [address] [address] [place] Anti-Nuclear Antibody (NILS) (10/03/2018 1:54 PM CDT) NILS Positive (A) Negative [facility] Specimen Blood Narrative Performed At Test performed by IFA method. [facility] Performing Organization Address [facility] Phone Number [address] [address] CENTER Ferritin (10/03/2018 1:54 PM CDT) Ferritin 218 5 - 275 ng/mL [facility] Specimen Blood Performing Organization Address [facility] Phone Number [address] [address] [phone] CENTER Bilirubin, direct (10/03/2018 1:54 PM CDT) Bilirubin, Direct 1.4 (H) 0.1 - 0.5 mg/dL [facility] Specimen Blood Performing Organization Address [facility]/Zipcode Phone Number [facility] [address] [place] [address] [phone] [place] Comprehensive Metabolic Panel (10/03/2018 1:54 PM CDT) Protein, Total 6.9 6.0 - 8.3 gm/dL [facility] Albumin 2.8 (L) 3.5 - 5.0 g/dL [facility] Alkaline Phosphatase 208 (H) 40 - 150 U/L [facility] Total Bilirubin 2.9 (H) 0.2 - 1.2 mg/dL [facility] Sodium 134 (L) 136 - 145 meq/L [facility] Potassium 3.4 (L) 3.5 - 5.1 meq/L [facility] Chloride 101 98 - 107 meq/L [facility] CO2 23 22 - 29 meq/L [facility] BUN 6 (L) 7 - 21 mg/dL [facility] Creatinine 0.76 0.57 - 1.25 mg/dL [facility] Glucose 61 (L) 70 - 105 mg/dL [facility] Calcium 8.3 (L) 8.4 - 10.2 mg/dL [facility] AST 50 (H) 5 - 34 U/L [facility] ALT 35 6 - 55 U/L [facility] EGFR 104Comment: ESTIMATED mL/min/1.73 sq m [facility] GFR IS NOT ACCURATE [facility] CREATININE CLEARANCE IN PREDICTING GLOMERULAR FILTRATION RATE. ESTIMATED GFR IS NOT APPLICABLE FOR DIALYSIS PATIENTS. Specimen Blood Narrative Performed At Specimen slightly icteric [facility] Performing Organization Address City/State/Zipcode Phone Number [facility] [address] [place] [address] CENTER after 10/23/2017 Insurance Payer Benefit Plan / Group Subscriber ID Type Phone Address MEDICARE MEDICARE A B xxxxxxxxxxx Medicare
--- OUTSIDE RECORDS SUMMARY | 2018-10-24 10:12 | XMS REPORT ---
:1955 [facility] Address [address] [place] [address] [address]. Villeg[address] [place] [address] Care Team Providers Name Role Phone BAKARI BENNIE ORTEGA Unavailable Unavailable Problems This patient has no known problems. Allergies, Adverse Reactions, Alerts This patient has no known allergies or adverse reactions. Medications This patient has no known medications. Results Test Description Test Time Test Comments Text Results Atomic Results Result Comments ACTIN (SMOOTH MUSCLE) ANTIBODY, IGG 2018-10-08 08:28:00 Test Item Value Reference Range Comments SCAN RESULT (test vuvv=[id number]) [id number] 08:27:00 Test Item Value Reference Range Comments SCAN RESULT (test rxow=[id number]) NILS TITER AND [id number] 09:55:00 Test Item Value Reference Range Comments NILS TITER (BEAKER) (test ljap=4759) :160 NILS PATTERN (BEAKER) (test wmmf=7534) Speckled ANTI-NUCLEAR ANTIBODY (NILS)2018-10-05 09:54:00 Test Item Value Reference Range Comments ANTI-NUCLEAR ANTIBODY (NILS) (BEAKER) (test Positive Negative xdej=473) Test performed by IFA method.[id number] 10:54:00 Test Item Value Reference Range Comments FERRITIN (BEAKER) (test ompe=890) 218 ng/mL 5-275 HEPATITIS A ANTIBODY, [id number] 10:18:00 Test Item Value Reference Range Comments HEPATITIS A IGG ANTIBODY (BEAKER) (test skfd=3101) Reactive Nonreactive ALPHA FETOPROTEIN (AFP), TUMOR [id number] 10:14:00 Test Item Value Reference Range Comments ALPHA-FETOPROTEIN (BEAKER) (test aklz=7934) 3.5 ng/mL <10.0 HEPATITIS A ANTIBODY, [id number] 10:14:00 Test Item Value Reference Range Comments HEPATITIS A IGM ANTIBODY (BEAKER) (test Nonreactive Nonreactive wmpa=143) HEPATITIS B CORE ANTIBODY, [id number] 10:14:00 Test Item Value Reference Range Comments HEPATITIS B CORE TOTAL ANTIBODY (BEAKER) (test Nonreactive Nonreactive fejb=390) HEPATITIS B SURFACE [id number] 09:42:00 Test Item Value Reference Range Comments HEPATITIS B SURFACE ANTIBODY (BEAKER) (test < mIU/mL <8.0 ubps=184) HEPATITIS C [id number] 09:37:00 Test Item Value Reference Range Comments HEPATITIS C ANTIBODY (BEAKER) (test cpne=593) Reactive Nonreactive HEPATITIS B SURFACE [id number] 09:36:00 Test Item Value Reference Range Comments HEPATITIS B SURFACE ANTIGEN (2) (BEAKER) (test Nonreactive Nonreactive kvol=3750) IRON, TIBC, % SAT. (WITHOUT FERRITIN)2018-10-04 09:14:00 Test Item Value Reference Range Comments IRON (BEAKER) (test rfju=924) 83.0 ug/dL 40.0-160.0 TOTAL IRON BINDING CAPACITY (BEAKER) (test 204 ug/dL 250-450 wpxn=162) IRON % SATURATION (2) (BEAKER) (test pbqu=9941) 41 % 20-55 [id number] 09:14:00 Test Item Value Reference Range Comments ALPHA-1 ANTITRYPSIN (BEAKER) (test gfkk=798) 159.30 mg/dL 90.00-200.00 COMPREHENSIVE METABOLIC [id number] 09:10:00 Test Item Value Reference Range Comments TOTAL PROTEIN (BEAKER) 6.9 gm/dL 6.0-8.3 (test zqvu=271) ALBUMIN (BEAKER) (test 2.8 g/dL 3.5-5.0 tyyg=4972) ALKALINE PHOSPHATASE 208 U/L 40-150 (BEAKER) (test xwqk=856) BILIRUBIN TOTAL (BEAKER) 2.9 mg/dL 0.2-1.2 (test idvt=405) SODIUM (BEAKER) (test 134 meq/L 136-145 xnnd=044) POTASSIUM (BEAKER) (test 3.4 meq/L 3.5-5.1 agtd=636) CHLORIDE (BEAKER) (test 101 meq/L 98-107 ozva=148) CO2 (BEAKER) (test 23 meq/L 22-29 hzjo=019) BLOOD UREA NITROGEN 6 mg/dL 7-21 (BEAKER) (test krom=775) CREATININE (BEAKER) (test 0.76 mg/dL 0.57-1.25 dbks=905) GLUCOSE RANDOM (BEAKER) 61 mg/dL 70-105 (test qaut=319) CALCIUM (BEAKER) (test 8.3 mg/dL 8.4-10.2 icqy=156) AST (SGOT) (BEAKER) (test 50 U/L 5-34 goky=554) ALT (SGPT) (BEAKER) (test 35 U/L 6-55 kgqr=978) EGFR (BEAKER) (test 104 mL/min/1.73 sq ESTIMATED GFR IS NOT gdck=0201) m ACCURATE CREATININE CLEARANCE IN PREDICTING GLOMERULAR FILTRATION RATE. ESTIMATED GFR IS NOT APPLICABLE FOR DIALYSIS PATIENTS. Specimen slightly ictericBILIRUBIN, [id number] 09:10:00 Test Item Value Reference Range Comments BILIRUBIN DIRECT (BEAKER) (test yshp=036) 1.4 mg/dL 0.1-0.5 PROTHROMBIN TIME/[id number] 08:38:00 Test Item Value Reference Range Comments PROTIME (BEAKER) (test evbg=521) 17.6 seconds 11.7-14.7 INR (BEAKER) (test mysi=858) 1.5 <=5.9 RECOMMENDED COUMADIN/WARFARIN INR THERAPY RANGESSTANDARD DOSE: 2.0 - 3.0 Includes: PROPHYLAXIS forvenous thrombosis, systemic embolization; TREATMENT for venous thrombosis and/or pulmonary embolus.HIGH RISK: Target INR is 2.5-3.5 for patients with mechanical heart valves.CBC W/PLT COUNT & AUTO [id number] 08:35:00 Test Item Value Reference Range Comments WHITE BLOOD CELL COUNT (BEAKER) (test eoie=184) 6.1 K/ L 3.5-10.5 RED BLOOD CELL COUNT (BEAKER) (test slol=318) 3.21 M/ L 4.63-6.08 HEMOGLOBIN (BEAKER) (test zkal=267) 10.8 GM/DL 13.7-17.5 HEMATOCRIT (BEAKER) (test zznc=713) 34.6 % 40.1-51.0 MEAN CORPUSCULAR VOLUME (BEAKER) (test eeox=769) 107.8 fL 79.0-92.2 MEAN CORPUSCULAR HEMOGLOBIN (BEAKER) (test 33.6 pg 25.7-32.2 aqbg=315) MEAN CORPUSCULAR HEMOGLOBIN CONC (BEAKER) (test 31.2 GM/DL 32.3-36.5 qacx=634) RED CELL DISTRIBUTION WIDTH (BEAKER) (test 14.4 % 11.6-14.4 wthg=628) PLATELET COUNT (BEAKER) (test syvm=957) 56 K/CU MM 150-450 MEAN PLATELET VOLUME (BEAKER) (test blro=112) 11.8 fL 9.4-12.4 NUCLEATED RED BLOOD CELLS (BEAKER) (test 0 /100 WBC 0-0 wcot=886) NEUTROPHILS RELATIVE PERCENT (BEAKER) (test 52 % sbps=385) LYMPHOCYTES RELATIVE PERCENT (BEAKER) (test 31 % rnlu=022) MONOCYTES RELATIVE PERCENT (BEAKER) (test 12 % qazk=731) EOSINOPHILS RELATIVE PERCENT (BEAKER) (test 4 % pgci=655) BASOPHILS RELATIVE PERCENT (BEAKER) (test 1 % qbdo=599) NEUTROPHILS ABSOLUTE COUNT (BEAKER) (test 3.14 K/ L 1.78-5.38 lhsw=352) LYMPHOCYTES ABSOLUTE COUNT (BEAKER) (test 1.88 K/ L 1.32-3.57 cxpw=594) MONOCYTES ABSOLUTE COUNT (BEAKER) (test opqw=014) 0.75 K/ L 0.30-0.82 EOSINOPHILS ABSOLUTE COUNT (BEAKER) (test 0.24 K/ L 0.04-0.54 pimz=345) BASOPHILS ABSOLUTE COUNT (BEAKER) (test uleq=229) 0.05 K/ L 0.01-0.08 IMMATURE GRANULOCYTES-RELATIVE PERCENT (BEAKER) 1 % 0-1 (test ntpp=4222)
[2018-10-24] MEDS ORDERED: NA CHLORIDE 0.9% 1,000 ML ONE (10:29)
[2018-10-24] MEDS ORDERED: MIDAZOLAM HCL 2 MG/2 ML INJ ONE (11:21)
[2018-10-24] MEDS ORDERED: LIDOCAINE 1% MPF 5 ML VIAL ONE (11:21)
[2018-10-24] MEDS ORDERED: PROPOFOL 200 MG/20 ML VIAL IV ONE (11:21)
--- NOTE | 2018-10-24 11:42 | ENDO RPT ---
[address], [address] EGD PROCEDURE REPORT EXAM DATE: 10/24/2018 PATIENT NAME: Tonny Cardona MR#: [id number] BIRTHDATE: 1955 ATTENDING: Anil Tavera Dr STATUS: outpatient TESTING SPECIALIST: Damion Veras RN, Huyen Chinchilla, and Deborah Martines RN INDICATIONS: The patient is a 62 yr old Male here for an EGD due to surveillance PROCEDURE PERFORMED: EGD with biopsy and EGD with banding MEDICATIONS: Per Anesthesia. TOPICAL ANESTHETIC: none CONSENT: The patient understands the risks and benefits of the procedure and understands that these risks include, but are not limited to: sedation, allergic reaction, infection, perforation and/or bleeding. Alternative means of evaluation and treatment include, among others: physical exam, x-rays, and/or surgical intervention. The patient elects to proceed with this endoscopic procedure. DESCRIPTION OF PROCEDURE: During intra-op preparation period all mechanical medical equipment was checked for proper function. Hand hygiene and appropriate measures for infection prevention was taken. Procedure, possible complications, and alternatives including but not limited to the possibility of bleeding, perforation, tear, infection, sepsis, need for surgery, need for blood transfusion, and anesthesia related complications were explained to the patient. After the risks, benefits and alternatives of the procedure were thoroughly explained, Informed consent was verified, confirmed and timeout was successfully executed by the treatment team. The patient was placed in the left lateral position. The patient was anesthetized with topical anesthesia. Through the anesthetized oropharyngeal area, the scope was passed without any difficulty. The Pentax EG-[id number] ([id number]) endoscope was introduced through the mouth and advanced to the second portion of the duodenum. Retroflexed views revealed no abnormalities. The gastroscope was then slowly withdrawn and removed. Three columns of grade II to III varices were found in the lower esophagus. Esophageal bandings X3 were performed. Gastropathy was found in the body of the stomach. Moderate gastritis was found in the antrum. Multiple biopsies were obtained and sent to pathology. ADVERSE EVENTS: There were no complications. IMPRESSIONS: 1. 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 Portal hypertensive gastropathy in the body of the stomach 3. Moderate gastritis in the antrum, s/p biopsy RECOMMENDATIONS: 1. await biopsy results 2. acid suppression therapy REPEAT EXAM: Anil Tavera Dr eSigned: Anil Tavera Dr 10/24/2018 11:41 AM cc: CPT CODES: ICD9 CODES: PATIENT NAME: CardonaTonny MR#: [id number]
--- NOTE | 2018-10-24 12:01 | ENDO RPT ---
[address], [address] EGD PROCEDURE REPORT EXAM DATE: 10/24/2018 PATIENT NAME: Tonny Cardona MR#: [id number] BIRTHDATE: 1955 ATTENDING: Anil Tavera Dr STATUS: outpatient [employer]ER: Damion Veras RN, Huyen Chinchilla, and Deborah Martines RN INDICATIONS: The patient is a 62 yr old Male here for an EGD due to esophageal varices screening, cirrhosis PROCEDURE PERFORMED: EGD with biopsy and EGD with banding MEDICATIONS: Per Anesthesia. TOPICAL ANESTHETIC: none CONSENT: The patient understands the risks and benefits of the procedure and understands that these risks include, but are not limited to: sedation, allergic reaction, infection, perforation and/or bleeding. Alternative means of evaluation and treatment include, among others: physical exam, x-rays, and/or surgical intervention. The patient elects to proceed with this endoscopic procedure. DESCRIPTION OF PROCEDURE: During intra-op preparation period all mechanical medical equipment was checked for proper function. Hand hygiene and appropriate measures for infection prevention was taken. Procedure, possible complications, and alternatives including but not limited to the possibility of bleeding, perforation, tear, infection, sepsis, need for surgery, need for blood transfusion, and anesthesia related complications were explained to the patient. After the risks, benefits and alternatives of the procedure were thoroughly explained, Informed consent was verified, confirmed and timeout was successfully executed by the treatment team. The patient was placed in the left lateral position. The patient was anesthetized with topical anesthesia. Through the anesthetized oropharyngeal area, the scope was passed without any difficulty. The Pentax EG-2990i ([id number]) endoscope was introduced through the mouth and advanced to the second portion of the duodenum. Retroflexed views revealed no abnormalities. The gastroscope was then slowly withdrawn and removed. Three columns of grade II to III varices were found in the lower esophagus. Esophageal bandings X3 were performed. Gastropathy was found in the body of the stomach. Moderate gastritis was found in the antrum. Multiple biopsies were obtained and sent to pathology. ADVERSE EVENTS: There were no complications. IMPRESSIONS: 1. 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 Portal hypertensive gastropathy in the body of the stomach 3. Moderate gastritis in the antrum, s/p biopsy RECOMMENDATIONS: 1. await biopsy results 2. acid suppression therapy REPEAT EXAM: Anil Tavera Dr eSigned: Anil Tavera Dr 10/24/2018 12:00 PM Revised: 10/24/2018 12:00 PM cc: CPT CODES: ICD9 CODES: PATIENT NAME: Brendan Fito. MR#: [id number]
[2018-10-24 12:19] VITALS: O2SAT 99
[2018-10-24 12:29] VITALS: BP 101/58; TEMP 98
== END 2018-10-24 12:40 | disposition home or self-care (01) ==
LOC: OR 10:03
PROVIDERS: ATTEND Internal Medicine Gastroenterology
PROC: 0DB68ZX Excision of Stomach, Via Natural or Artificial Opening Endoscopic, Diagnostic (ICD-10-PCS; 2018-10-24)
PROC: 06L38CZ Occlusion of Esophageal Vein with Extraluminal Device, Via Natural or Artificial Opening Endoscopic (ICD-10-PCS; principal; 2018-10-24 11:00)
DX: K74.60 Unspecified cirrhosis of liver (principal); I85.10 Secondary esophageal varices without bleeding; K29.50 Unspecified chronic gastritis without bleeding; B96.81 Helicobacter pylori [H. pylori] as the cause of diseases classified elsewhere; K76.6 Portal hypertension; K31.89 Other diseases of stomach and duodenum; K21.9 Gastro-esophageal reflux disease without esophagitis; E11.9 Type 2 diabetes mellitus without complications; I10 Essential (primary) hypertension; F41.9 Anxiety disorder, unspecified; F32.9 Major depressive disorder, single episode, unspecified
CPT/HCPCS: 88312; 82962; 88305; 43244; 43239; J2704; J2250; J7030

== ENCOUNTER 2018-10-27 13:22 | Emergency (ER) | payer OTHER ==
--- OUTSIDE RECORDS SUMMARY | 2018-10-27 13:24 | XMS REPORT | Clinical Summary ---
:1955 Author Organization [facility] Address [address] [place] [address] Care Team Providers Name Role Phone Unavailable [...] 10/01/2018 Telephone Hepatology Nilam Bonilla Appointment after 10/26/2017 Family History Medical History Relation Name Comments [...] 12/06/2018 Office Visit Hepatology Ankur Dan MD [address] [address] [phone] Procedures Procedure Name Priority Date/Time Associated Diagnosis [...] immunity disorder Screening for cancer Metabolic syndrome [id number]\\, Routine 10/03/2018 1:54 Alcoholic cirrhosis Results for [...] disorder Screening for cancer Metabolic syndrome after 10/26/2017 Results Hepatitis A antibody, IgG (10/03/2018 1:54 PM CDT) Hep A IgG Reactive (A) Nonreactive [facility] Specimen Blood Performing Organization Address City/State/Zipcode Phone Number [facility] [address] [place] [address] CENTER Mitochondrial Antibodies, M2 (10/03/2018 1:54 PM CDT) Mitochondria M2 Ab <20.0 See Note: U [facility] Comment: Reference Range: NEGATIVE:< OR=20.0 EQUIVOCAL: 20.1-24.9 POSITIVE:> OR=25.0 Specimen Blood Narrative Performed At Performing Lab [facility] EZ [facility] [address] [place] [address] Harlan Salazar MD, PhD, SANDRA Performing Organization Address City/State/Zipcode Phone Number [facility], [place] [address] [facility]ORPORATED [address] [facility] Iron, TIBC, % sat. (without ferritin) (10/03/2018 1:54 PM CDT) Iron 83.0 40.0 - 160.0 ug/dL [facility] TIBC 204 (L) 250 - 450 ug/dL [facility] Iron % Saturation 41 20 - 55 % [facility] Specimen Blood Performing Organization Address City/State/Zipcode Phone Number [facility] [address] [place] [address] CENTER CBC with platelet count + automated diff (10/03/2018 1:54 PM CDT) WBC 6.1 3.5 - 10.5 K/L [facility] RBC 3.21 (L) 4.63 - 6.08 M/L [facility] Hemoglobin 10.8 (L) 13.7 - 17.5 GM/DL [facility] Hematocrit 34.6 (L) 40.1 - 51.0 % [facility] MCV 107.8 (H) 79.0 - 92.2 fL [facility] MCH 33.6 (H) 25.7 - 32.2 pg [facility] MCHC 31.2 (L) 32.3 - 36.5 GM/DL [facility] RDW 14.4 11.6 - 14.4 % [facility] Platelets 56 (L) 150 - 450 K/CU MM [facility] MPV 11.8 9.4 - 12.4 fL [facility] nRBC 0 0 - 0 /100 WBC [facility] % Neutros 52 % [facility] % Lymphs 31 % [facility] % Monos 12 % [facility] % Eos 4 % [facility] % Baso 1 % [facility] # Neutros 3.14 1.78 - 5.38 K/L [facility] # Lymphs 1.88 1.32 - 3.57 K/L [facility] # Monos 0.75 0.30 - 0.82 K/L [facility] # Eos 0.24 0.04 - 0.54 K/L [facility] # Baso 0.05 0.01 - 0.08 K/L [facility] Immature 1 0 - 1 % [facility] Specimen Blood Performing Organization Address City/State/Zipcode Phone Number [facility] [address] [place] [address] [phone] CENTER Hepatitis C antibody (10/03/2018 1:54 PM CDT) Hepatitis C Ab Reactive (A) Nonreactive [facility] Specimen Blood Performing Organization Address City/State/Zipcode Phone Number [address] [address] CENTER Actin (Smooth Muscle) Antibody, IgG (10/03/2018 [...] At Performing Lab [facility] EZ [facility] [address] [place] [address] Harlan Salazar MD, PhD, SANDRA Performing Organization Address City/[facility] [email or web address] Phone Number [facility] [place] [address] [place] [address] Nfkqb-7-Kgvmzdpuznt (10/03/2018 1:54 PM CDT) A-1 Antitrypsin 159.30 90.00 - 200.00 mg/dL [facility] Specimen Blood Performing Organization Address [facility] [[email or web address] Phone Number [address] [address] [phone] CENTER Hepatitis A antibody, IgM (10/03/2018 1:54 PM CDT) Hep A IgM HEPATITIS A TEST NEGATIVE Nonreactive [facility] Specimen Blood Performing Organization Address [facility] [[email or web address] Phone Number [address] [phone] CENTER NILS Titer & Pattern (10/03/2018 1:54 PM CDT) NILS Titer 1:160 [facility] NILS Pattern Speckled [facility] Specimen Blood Performing Organization Address [facility] [[email or web address] Phone Number [address] [phone] CENTER Ceruloplasmin (10/03/2018 1:54 PM CDT) Scan Result [facility] Ceruloplasmin 26 18 - 36 mg/dL [facility] Comment: Adults:Males: 18-36 mg/dL Females: 18-53 mg/dL Pediatrics:Males (mg/dL)Females (mg/dL) 0-30 Days 8-25 3-28 31 Days-11 Month 15-4815-43 1-3 Capib43-6470-60 4-6 Qqclo75-8046-99 7-9 Jvmth29-9672-15 10-12 Ukilj46-3372-27 13-15 Lkjvg73-3889-90 16-18 Aovsv85-7796-52 The pediatric ranges are derived from the following criteria: Amalia VALDES, Adelia WICK, Elba J et al Pediatric reference ranges for Oxoi-7-Qvejlwjqqaqtr and ceruloplasmin. Clin. Chem 1997; 43:S1999 Pediatric Reference Ranges, 2nd., [place] Amaliaet al. editors. [employer], [place], [place] 1997. Specimen Blood Narrative Performed At This [facility] has an attachment that is not available. Performing Lab [facility] *[facility], [address] [place] [phone] Heather Real MD, PhD Performing Organization Address City/[facility] [[email or web address] Phone Number [facility] [place] [address] INCORPORATED [address] [facility] Alpha fetoprotein (AFP), tumor marker (10/03/2018 1:54 PM CDT) Alpha-Fetoprotein 3.5 <10.0 ng/mL [facility] Specimen Blood Performing Organization Address City/[facility]/Zipcode Phone Number [address] [address] [place] Hepatitis B core antibody, total (10/03/2018 1:54 PM CDT) Hep B Core Total Ab NON-REACTIVE Nonreactive [facility] Specimen Blood Performing Organization Address City/[facility]/Zipcode Phone Number [address] [address] CENTER Hepatitis B surface antibody (10/03/2018 1:54 PM CDT) Hep B S Ab <8.0 <8.0 mIU/mL [facility] Specimen Blood Performing Organization Address [facility]/Zipcode Phone Number [address] [address] [phone] [place] Hepatitis B surface antigen (10/03/2018 1:54 PM CDT) hepatitis B Surface Ag NON-REACTIVE Nonreactive [facility] Specimen Blood Performing Organization Address [facility] [[email or web address] Phone Number [address] [address] CENTER Pro-time/INR (10/03/2018 1:54 PM CDT) Protime 17.6 (H) 11.7 - 14.7 seconds [facility] INR 1.5 <=5.9 [facility] Specimen Blood Narrative Performed At RECOMMENDED COUMADIN/WARFARIN INR THERAPY [facility] RANGES STANDARD DOSE: 2.0 - 3.0 Includes: PROPHYLAXIS for venous thrombosis, systemic embolization; TREATMENT for venous thrombosis and/or pulmonary embolus. HIGH RISK: Target INR is 2.5-3.5 for patients with mechanical heart valves. Performing Organization Address [facility] [[email or web address] Phone Number [address] [address] [place] Anti-Nuclear Antibody (NILS) (10/03/2018 1:54 PM CDT) NILS Positive (A) Negative [facility] Specimen Blood Narrative Performed At Test performed by IFA method. [facility] Performing Organization Address [facility] Phone Number [address] [address] CENTER Ferritin (10/03/2018 1:54 PM CDT) Ferritin 218 5 - 275 ng/mL [facility] Specimen Blood Performing Organization Address [facility] [[email or web address] Phone Number [address] [address] [phone] CENTER Bilirubin, direct (10/03/2018 1:54 PM CDT) Bilirubin, Direct 1.4 (H) 0.1 - 0.5 mg/dL [facility] Specimen Blood Performing Organization Address [facility]/Zipcode Phone Number [facility] [address] [place] [address] [place] Comprehensive Metabolic Panel (10/03/2018 1:54 PM CDT) Protein, Total 6.9 6.0 - 8.3 gm/dL [facility] Albumin 2.8 (L) 3.5 - 5.0 g/dL [facility] Alkaline Phosphatase 208 (H) 40 - 150 U/L [facility] Total Bilirubin 2.9 (H) 0.2 - 1.2 mg/dL [facility] Sodium 134 (L) 136 - 145 meq/L [facility] Potassium 3.4 (L) 3.5 - 5.1 meq/L [facility] Chloride 101 98 - 107 meq/L [facility] CO2 23 22 - 29 meq/L [facility] BUN 6 (L) 7 - 21 mg/dL [facility] Creatinine 0.76 0.57 - 1.25 mg/dL [facility] Glucose 61 (L) 70 - 105 mg/dL [facility] Calcium 8.3 (L) 8.4 - 10.2 mg/dL [facility] AST 50 (H) 5 - 34 U/L [facility] ALT 35 6 - 55 U/L [facility] EGFR 104Comment: ESTIMATED mL/min/1.73 sq m [facility] GFR IS NOT ACCURATE [facility] CREATININE CLEARANCE IN PREDICTING GLOMERULAR FILTRATION RATE. ESTIMATED GFR IS NOT APPLICABLE FOR DIALYSIS PATIENTS. Specimen Blood Narrative Performed At Specimen slightly icteric [facility] Performing Organization Address City/State/Zipcode Phone Number [facility] [address] [place] [address] CENTER after 10/26/2017 Insurance Payer Benefit Plan / Group Subscriber ID Type Phone Address MEDICARE MEDICARE A B xxxxxxxxxxx Medicare
--- OUTSIDE RECORDS SUMMARY | 2018-10-27 13:24 | XMS REPORT ---
:1955 [facility] Address [address] [place] [address] [address]. [address] [place] [address] Care Team Providers Name Role Phone BENNIE VILLEGAS SHANNON Unavailable Unavailable Problems This patient has no known problems. Allergies, Adverse Reactions, Alerts This patient has no known allergies or adverse reactions. Medications This patient has no known medications. Results Test Description Test Time Test Comments Text Results Atomic Results Result Comments ACTIN (SMOOTH MUSCLE) ANTIBODY, IGG 2018-10-08 08:28:00 Test Item Value Reference Range Comments SCAN RESULT (test gang=[id number]) [id number] 08:27:00 Test Item Value Reference Range Comments SCAN RESULT (test gzks=[id number]) NILS TITER AND [id number] 09:55:00 Test Item Value Reference Range Comments NILS TITER (BEAKER) (test lskx=9120) :160 NILS PATTERN (BEAKER) (test flgl=1113) Speckled ANTI-NUCLEAR ANTIBODY (NILS)2018-10-05 09:54:00 Test Item Value Reference Range Comments ANTI-NUCLEAR ANTIBODY (NILS) (BEAKER) (test Positive Negative htad=303) Test performed by IFA method.[id number] 10:54:00 Test Item Value Reference Range Comments FERRITIN (BEAKER) (test cwwz=099) 218 ng/mL 5-275 HEPATITIS A ANTIBODY, [id number] 10:18:00 Test Item Value Reference Range Comments HEPATITIS A IGG ANTIBODY (BEAKER) (test qwwz=8467) Reactive Nonreactive ALPHA FETOPROTEIN (AFP), TUMOR [id number] 10:14:00 Test Item Value Reference Range Comments ALPHA-FETOPROTEIN (BEAKER) (test pppl=8993) 3.5 ng/mL <10.0 HEPATITIS A ANTIBODY, [id number] 10:14:00 Test Item Value Reference Range Comments HEPATITIS A IGM ANTIBODY (BEAKER) (test Nonreactive Nonreactive jobf=490) HEPATITIS B CORE ANTIBODY, [id number] 10:14:00 Test Item Value Reference Range Comments HEPATITIS B CORE TOTAL ANTIBODY (BEAKER) (test Nonreactive Nonreactive usfu=326) HEPATITIS B SURFACE [id number] 09:42:00 Test Item Value Reference Range Comments HEPATITIS B SURFACE ANTIBODY (BEAKER) (test < mIU/mL <8.0 lujq=330) HEPATITIS C [id number] 09:37:00 Test Item Value Reference Range Comments HEPATITIS C ANTIBODY (BEAKER) (test xndi=970) Reactive Nonreactive HEPATITIS B SURFACE [id number] 09:36:00 Test Item Value Reference Range Comments HEPATITIS B SURFACE ANTIGEN (2) (BEAKER) (test Nonreactive Nonreactive etnf=6133) IRON, TIBC, % SAT. (WITHOUT FERRITIN)2018-10-04 09:14:00 Test Item Value Reference Range Comments IRON (BEAKER) (test weuf=522) 83.0 ug/dL 40.0-160.0 TOTAL IRON BINDING CAPACITY (BEAKER) (test 204 ug/dL 250-450 qgfa=107) IRON % SATURATION (2) (BEAKER) (test cejy=7238) 41 % 20-55 [id number] 09:14:00 Test Item Value Reference Range Comments ALPHA-1 ANTITRYPSIN (BEAKER) (test qcan=934) 159.30 mg/dL 90.00-200.00 COMPREHENSIVE METABOLIC [id number] 09:10:00 Test Item Value Reference Range Comments TOTAL PROTEIN (BEAKER) 6.9 gm/dL 6.0-8.3 (test sguk=154) ALBUMIN (BEAKER) (test 2.8 g/dL 3.5-5.0 sqmx=4074) ALKALINE PHOSPHATASE 208 U/L 40-150 (BEAKER) (test mynk=184) BILIRUBIN TOTAL (BEAKER) 2.9 mg/dL 0.2-1.2 (test urok=800) SODIUM (BEAKER) (test 134 meq/L 136-145 afqx=250) POTASSIUM (BEAKER) (test 3.4 meq/L 3.5-5.1 fprp=003) CHLORIDE (BEAKER) (test 101 meq/L 98-107 hjqs=057) CO2 (BEAKER) (test 23 meq/L 22-29 jwms=516) BLOOD UREA NITROGEN 6 mg/dL 7-21 (BEAKER) (test bals=313) CREATININE (BEAKER) (test 0.76 mg/dL 0.57-1.25 mtvr=377) GLUCOSE RANDOM (BEAKER) 61 mg/dL 70-105 (test vhhf=775) CALCIUM (BEAKER) (test 8.3 mg/dL 8.4-10.2 ptgw=113) AST (SGOT) (BEAKER) (test 50 U/L 5-34 gbvb=633) ALT (SGPT) (BEAKER) (test 35 U/L 6-55 rwlc=303) EGFR (BEAKER) (test 104 mL/min/1.73 sq ESTIMATED GFR IS NOT glzt=2620) m ACCURATE CREATININE CLEARANCE IN PREDICTING GLOMERULAR FILTRATION RATE. ESTIMATED GFR IS NOT APPLICABLE FOR DIALYSIS PATIENTS. Specimen slightly ictericBILIRUBIN, [id number] 09:10:00 Test Item Value Reference Range Comments BILIRUBIN DIRECT (BEAKER) (test cvsv=517) 1.4 mg/dL 0.1-0.5 PROTHROMBIN [id number] 08:38:00 Test Item Value Reference Range Comments PROTIME (BEAKER) (test fxgo=085) 17.6 seconds 11.7-14.7 INR (BEAKER) (test fbqo=234) 1.5 <=5.9 RECOMMENDED COUMADIN/WARFARIN INR THERAPY RANGESSTANDARD DOSE: 2.0 - 3.0 Includes: PROPHYLAXIS forvenous thrombosis, systemic embolization; TREATMENT for venous thrombosis and/or pulmonary embolus.HIGH RISK: Target INR is 2.5-3.5 for patients with mechanical heart valves.CBC W/PLT COUNT & AUTO [id number] 08:35:00 Test Item Value Reference Range Comments WHITE BLOOD CELL COUNT (BEAKER) (test usxr=870) 6.1 K/ L 3.5-10.5 RED BLOOD CELL COUNT (BEAKER) (test kkml=235) 3.21 M/ L 4.63-6.08 HEMOGLOBIN (BEAKER) (test fyfm=644) 10.8 GM/DL 13.7-17.5 HEMATOCRIT (BEAKER) (test nqyt=744) 34.6 % 40.1-51.0 MEAN CORPUSCULAR VOLUME (BEAKER) (test obcx=831) 107.8 fL 79.0-92.2 MEAN CORPUSCULAR HEMOGLOBIN (BEAKER) (test 33.6 pg 25.7-32.2 okrc=357) MEAN CORPUSCULAR HEMOGLOBIN CONC (BEAKER) (test 31.2 GM/DL 32.3-36.5 utdk=461) RED CELL DISTRIBUTION WIDTH (BEAKER) (test 14.4 % 11.6-14.4 hkoz=456) PLATELET COUNT (BEAKER) (test sezr=848) 56 K/CU MM 150-450 MEAN PLATELET VOLUME (BEAKER) (test pgaw=409) 11.8 fL 9.4-12.4 NUCLEATED RED BLOOD CELLS (BEAKER) (test 0 /100 WBC 0-0 smhv=592) NEUTROPHILS RELATIVE PERCENT (BEAKER) (test 52 % jbjg=254) LYMPHOCYTES RELATIVE PERCENT (BEAKER) (test 31 % fhqt=140) MONOCYTES RELATIVE PERCENT (BEAKER) (test 12 % tjtd=095) EOSINOPHILS RELATIVE PERCENT (BEAKER) (test 4 % lvxt=539) BASOPHILS RELATIVE PERCENT (BEAKER) (test 1 % hkid=331) NEUTROPHILS ABSOLUTE COUNT (BEAKER) (test 3.14 K/ L 1.78-5.38 ltqf=900) LYMPHOCYTES ABSOLUTE COUNT (BEAKER) (test 1.88 K/ L 1.32-3.57 ruov=616) MONOCYTES ABSOLUTE COUNT (BEAKER) (test khur=735) 0.75 K/ L 0.30-0.82 EOSINOPHILS ABSOLUTE COUNT (BEAKER) (test 0.24 K/ L 0.04-0.54 bilp=049) BASOPHILS ABSOLUTE COUNT (BEAKER) (test kpzo=117) 0.05 K/ L 0.01-0.08 IMMATURE GRANULOCYTES-RELATIVE PERCENT (BEAKER) 1 % 0-1 (test fgzo=1259)
[2018-10-27 14:07] LABS: Absolute Lymphocytes (CBC) 1.9 K/uL (0.7-4.9); Absolute Monocytes 0.6 K/uL (0.1-1.3); Absolute Neutrophil 4.6 K/uL (1.8-8.0); Basophils % 0.7 % (0-1.3); Eosinophils % 2.5 % (0-4.4); Hematocrit 33.9 % (39.6-49.0); Lymphocytes % 25.8 % (15.3-44.8); MPV 9.1 fL (7.6-11.3); Monocytes % 7.9 % (3.3-12.3); Protime INR 1.51; RBC Red Blood Cell Count 3.34 M/uL (4.33-5.43)
[2018-10-27] MEDS ORDERED: MORPHINE 4 MG/ML SYR ONE (14:11)
[2018-10-27] MEDS ORDERED: LEVALBUTEROL 1.25 MG/3 ML NEB ONE (14:11)
[2018-10-27] MEDS ORDERED: ONDANSETRON 4 MG/2 ML VIAL ONE (14:11)
[2018-10-27 14:23] LABS: Bilirubin Direct 1.1 mg/dL (0-0.2); Bilirubin Total 3.2 mg/dL (0.2-1.0); Magnesium 1.7 mg/dL (1.8-2.4); Potassium 3.9 mmol/L (3.5-5.1); Protein, Total 6.7 g/dL (6.4-8.2); Troponin (Emerg Dept Use Only) 0.15 ng/mL (0.0-0.045)
--- NOTE | 2018-10-27 15:23 | RAD REPORT ---
EXAM DESCRIPTION: RAD - Chest Single View - 10/27/2018 3:06 pm CLINICAL HISTORY: CHEST PAIN Chest pain. COMPARISON: Chest Single View dated 08/04/2018; Chest Single View dated 05/23/2018; CHEST SINGLE VIEW dated 05/31/2010; Abdomen Exam Complete dated 08/06/2018; Head Brain Wo Cont dated 08/04/2018; Abdomen P cameron W Contrast dated 07/08/2018; Abdomen Pelvis Wo Contrast dated 06/03/2018 FINDINGS: Portable technique limits examination quality. The lungs are grossly clear. The heart is mildly enlarged in size. No displaced fractures. IMPRESSION: No acute intrathoracic process suspected.
--- NOTE | 2018-10-27 15:37 | RAD REPORT ---
EXAM DESCRIPTION: CTAbdomen Pelvis W Contrast - 10/27/2018 3:29 pm CLINICAL HISTORY: Abdominal pain. abdominal pain, IV ONLY COMPARISON: Abdomen Pelvis W Contrast dated 07/08/2018; CT ABD PELVIS W CONTRAST dated 09/26/2014 TECHNIQUE: Biphasic CT imaging of the abdomen and pelvis was performed with 100 ml non-ionic IV cont rast. All CT scans are performed using dose optimization technique as appropriate and may include automated exposure control or mA/KV adjustment according to patient size. FINDINGS: The lung bases are clear. Moderate hiatal hernia. Liver cirrhosis is present. The spleen is normal in size. The pancreas, adren al glands and kidneys are within normal limits. Mild ascites is present. A large number of collateral veins are seen in the upper abdomen. Multiple t hickened small bowel loops are present in upper abdomen. Focal fat containing ventral hernia is seen with a hernia mesh present. No evidence of significant lymphadenopathy. No suspicious bony findings. IMPRESSION: Prominent liver cirrhosis with portal hypertension. Several thickened small bowel loops in the central abdomen may indicate portal enteropathy. Small fat containing ventral hernia, with mesh material in place, unchanged.
--- NOTE | 2018-10-27 15:39 | RAD REPORT ---
EXAM DESCRIPTION: CT - Chest For Pe Angio - 10/27/2018 3:23 pm CLINICAL HISTORY: Chest pain. shortness of breath COMPARISON: <Comparisons> TECHNIQUE: CT angiogram of the pulmonary arteries was performed with MIP. All CT scans are performed using dose optimization technique as appropriate and may include automated exposure control or mA/KV adjustment according to patient size. FINDINGS: No evidence of pulmonary thromboembolism. No acute aortic finding demonstrated. The lungs are clear. Gynecomastia noted bilaterally. No significant pericardial or pleural fluid. No concerning bony finding. Large hiatal hernia. IMPRESSION: No evidence of pulmonary thromboembolism. No acute lung findings.
[2018-10-27] MEDS ORDERED: LORazepam 2 MG/ML VIAL ONE (16:02)
--- NOTE | 2018-10-27 16:40 | EKG ---
Test Date: 2018-10-27 Test Time: 13:31:37 Regional Program Manager: RICHARD MEASUREMENT RESULTS: Intervals: Rate: 78 IL: QRSD: 76 QT: 384 QTc: 437 [place]: P: 63 IL: QRS: -31 T: 50 INTERPRETIVE STATEMENTS: Sinus rhythm Left axis deviation Cannot rule out Anterior infarct, age undetermined Abnormal ECG Compared to ECG 08/04/2018 14:15:13 Atrial premature complex(es) no longer present Myocardial infarct finding still present Electronically Signed On 10-27-18 16:39:59 CDT by Edmund Dewey
--- NOTE | 2018-10-27 17:41 | P.CNS ---
Date of Consult: 10/27/18 Reason for Consult: ER evaluation Primary Care Provider: Unknown, GI-Dr. Dan/Sweat Chief Complaint: Chest pain, shortness of breath History of Present Illness: 62-year-old male presented to emergency room with chest pain and shortness of breath. Patient with underlying chronic liver cirrhosis with a meld score of 17. Patient reported chest pain earlier today. It was associated with some shortness of breath. Patient also has been complaining of fever, chills. Patient has been having chronic diarrhea. Some melena also noted. Significant for this past week patient had EGD. Patient had multiple varices banded. Then the patient had a paracentesis with 2 L removed yesterday. Patient is in process of getting evaluated for liver transplant. In the ER patient was evaluated. White count 7.2, hemoglobin 11.4. Sodium 142 , potassium 3.9, BUN of 6, creatinine 0.9 with a GFR of 88. Glucose 126. Ammonia level elevated. CT angiogram unremarkable. CT of abdomen showed mild ascites with cirrhosis and gastropathy. While in the ER the patient became confused. I came to evaluate the patient for recommendation. When I saw the patient he was confuse. Abdomen was distended and warm. Some abdominal tenderness was noted. Significant other was at bedside. Significant edema to note to the lower extremities. Patient appeared encephalopathic. Blood pressure stable. Heart rate slightly increased. Allergies No Known Allergies Allergy (Verified 10/24/18 11:07) Home medications list reviewed: Yes Home Medications: Lisinopril [Prinivil] 20 mg PO BID 08/04/18 Metformin ER [Glucophage ER] 500 mg PO BID 08/04/18 ALPRAZolam [Xanax] 1 mg PO BID PRN 08/05/18 Carvedilol [Coreg] 3.125 mg PO BID 08/05/18 Clobetasol Propionate/Emoll [Clobetasol Emollient 0.05% Crm] 15 gm TP BID Folic Acid 1 mg PO DAILY 08/05/18 Furosemide [Lasix] 40 mg PO DAILY 08/05/18 Hydroxyzine HCl [Atarax] 25 mg PO TID 08/05/18 Spironolactone [Aldactone] 100 mg PO DAILY 08/05/18 Tramadol HCl [Ultram] 50 mg PO Q6HP PRN 08/05/18 Triamcinolone Acetonide 15 gm TP BID 08/05/18 Codeine/APAP [Tylenol W/Codeine #3 tab] 1 tab PO PRN PRN 10/24/18 Furosemide [Lasix] 20 mg PO DAILY 10/24/18 Lactulose 30 ml PO SEECOM PRN 10/24/18 Pantoprazole [Protonix Tab] 40 mg PO DAILY 10/24/18 Pitavastatin Calcium [Livalo] 2 mg PO DAILY 10/24/18 hydrOXYzine HCl [Atarax] 50 mg PO DAILY 10/24/18 - Past Medical/Surgical History Diabetic: Yes -: DM II -: HTN -: CHF -: Liver cirrhosis, meld score 17 -: Hyperlipidemia -: Obesity -: GERD -: Gastric varices -: H pylori gastritis -: Hernia repair Psychosocial/ Personal History: Patient has significant other. - Family History Father Medical History: Diabetes - Social History Smoking Status: Unknown if ever smoked Alcohol use: No CD- Drugs: No Caffeine use: Yes Place of Residence: Home Review of Systems General: Fever, Weakness, Malaise, As per HPI Eyes: Unremarkable ENT: Unremarkable Respiratory: Shortness of Breath, As per HPI Cardiovascular: Chest Pain, As per HPI Gastrointestinal: Abdominal Pain, As per HPI Genitourinary: Unremarkable Musculoskeletal: Pedal edema Integumentary: Unremarkable Neurological: Weakness, Confusion, As per HPI Lymphatics: Unremarkable Physical Examination General: Oriented x1, Confused, Other (Patient confused. Somewhat cooperative.) HEENT: Atraumatic, Normocephalic, Mucous membr. moist/pink Neck: Supple Respiratory: Clear to auscultation bilaterally, Normal air movement Cardiovascular: Abnormal pulses (Sinus tachycardia) Gastrointestinal: Other (Abdomen tender and warm.), Distended, Ascites ( Abdominal distention noted with ascites.), Tenderness (Tenderness to the abdomen.) Integumentary: Tenderness/swelling (2+ pitting edema to the lower extremities) Neurological: Other (Patient confused) Laboratory Data (last 24 hrs) 10/27/18 13:50: PT 17.5 H, INR 1.51 10/27/18 13:50: WBC 7.2, Hgb 11.4 L, Hct 33.9 L, Plt Count 92 L D 10/27/18 13:50: Sodium 142, Potassium 3.9, BUN 6 L, Creatinine 0.91, Glucose 126 H, Magnesium 1.7 L, Total Bilirubin 3.2 H, AST 44 H, ALT 31, Alkaline Phosphatase 165 H Conclusions/Impression: Impression: Hepatic encephalopathy complicated with liver cirrhosis, meld score 17 Suspect spontaneous bacterial peritonitis with recent paracentesis Recent EGD showing H pylori gastritis, gastric varices requiring banding Chronic diarrhea with melena Anemia of chronic disease Diabetes mellitus type 2 Chronic diastolic CHF Plan: Patient evaluated. Patient with multiple complicated medical problems including hepatic encephalopathy. Patient with liver cirrhosis with meld score 17. He is in process of being evaluated for liver transplant. Patient likely with spontaneous bacterial peritonitis with recent paracentesis. Patient also had chest pain and shortness of breath. Patient had recent cardiac evaluation which was unremarkable. Chronic diarrhea and melena noted. Patient with recent EGD showing H pylori gastritis and gastric varices requiring banding. Case discussed at length with his GI doctor-Dr. Reid. He is out of state at this time. Patient also sees GI specialty care-hepatology at [facility] in [place]. Dr. reid recommended transfer for higher level of care due to multiple medical issues requiring GI. Antibiotics initiated. Patient will require lactulose. Patient will require ICU monitoring due to multiple medical issues. Case discussed with physician assistant coach taking care of the patient. I am recommending transfer to higher level care center to further address his multiple issues especially requiring GI. Physician assistant coach has contacted [facility] who has accepted the patient. The patient to be transferred for high-level care. Time Spent Managing Pts care (In Minutes): 55
[2018-10-27 17:47] LABS: Anisocytosis 1+; Blood Morphology Comment NOTED (NOT SEEN); Platelet Estimate DECR; Urine White Blood Cell Casts OK
[2018-10-27] MEDS ORDERED: CEFTRIAXONE/SWI 1gm 1 GM/10 ML SYR ONE (17:49)
--- NOTE | 2018-10-27 18:28 | EDPHYS ---
Physician Documentation [facility] Name: Tonny Cardona Age: 62 yrs Sex: Male : 1955 Arrival Date: 10/27/2018 Time: 13:24 Bed 2 Private MD: ED Physician Emanuel Bedolla HPI: 10/27 13:35 This 62 yrs old Male presents to ER via Wheelchair with complaints of Chest jmm Pain, Shortness Of Breath. 13:35 The patient presents with abdominal pain in the epigastric area. Onset: The jmm symptoms/episode began/occurred today. The symptoms do not radiate. Associated signs and symptoms: Pertinent positives: chest pain. The symptoms are described as achy, sharp. This is a 62 year old male with a history of cirrhosis, DM, htn that presents to the ED with complaints of chest pain beginning this morning as well as abdominal pain. Patient had paracentesis performed yesterday. 2 liters were removed. Family states the patient has had intermittent fevers over the past 2 months and occasional dark stools. . Historical: - Allergies: 13:34 No Known Allergies; ss - PMHx: 13:34 Cirrhosis; Diabetes - NIDDM; Hypertension; psoriasis; ss - Immunization history:: Adult Immunizations up to date. - Social history:: Smoking status: Patient/guardian denies using tobacco, Patient/guardian denies using alcohol. - Ebola Screening: : Patient denies exposure to infectious person Patient denies travel to an Ebola-affected area in the 21 days before illness onset. ROS: 13:35 Constitutional: Positive for fever. jmm 13:35 Cardiovascular: Positive for chest pain. 13:35 Respiratory: Positive for shortness of breath. 13:35 Abdomen/GI: Positive for abdominal pain. 13:35 All other systems are negative. Exam: 13:35 Head/Face: atraumatic. Eyes: EOMI, no conjunctival erythema appreciated ENT: Moist jmm Mucus Membranes Neck: Trachea midline, Supple Chest/axilla: Normal chest wall appearance and motion. 13:35 Constitutional: The patient appears alert, awake, uncomfortable. 13:35 Cardiovascular: Rate: normal, Rhythm: regular. 13:35 Respiratory: the patient does not display signs of respiratory distress, Respirations: mild wheezing noted. 13:35 Abdomen/GI: abdominal distension noted, epigastric area is tender and warm. 13:35 Back: ROM is normal. 13:35 Musculoskeletal/extremity: ROM: intact in all extremities. 13:35 Skin: erythema is noted to the epigastric region. 13:35 Neuro: Orientation: is normal, Mentation: is normal, Memory: is normal. 13:35 Psych: Behavior/mood is pleasant, cooperative. 18:30 ECG was reviewed by the Attending Physician. [facility] Vital Signs: 13:34 BP 137 / 85; Pulse 80; Resp 25; Temp 97.9(O); Pulse Ox 100% on R/A; Weight 109.32 kg; ss Height 5 ft. 6 in. (167.64 cm); Pain 8/10; 14:30 BP 142 / 80; Pulse 80; Resp 21; Pulse Ox 100% ; bp 15:30 BP 152 / 67; Pulse 100; Resp 14; Pulse Ox 99% ; bp 17:00 BP 121 / 72; Pulse 106; Resp 17; Pulse Ox 99% ; bp 18:00 BP 124 / 73; Pulse 105; Resp 21; Pulse Ox 100% ; bp 19:36 BP 131 / 78; Pulse 107; Resp 21; Temp 97.5(O); Pulse Ox 99% on R/A; Pain 6/10; ed1 13:34 Body Mass Index 38.90 (109.32 kg, 167.64 cm) ss MDM: 13:35 Patient medically screened. [facility] 18:23 Data reviewed: vital signs, nurses notes. Counseling: I had a detailed discussion with [facility] the patient and/or guardian regarding: the historical points, exam findings, and any diagnostic results supporting the discharge/admit diagnosis, lab results, radiology results, the need to transfer to another facility. ED course: I discussed the patient with Dr. Jasmine whom consulted Dr. Reid. Dr. Jasmine then advised to transfer the patient due to concerns for SBP. Patient's chest pain is relieved in the ED. I discussed the patient with Dr. Dominguez whom advised to administer Rocephin. I discussed the patient with Dr. Rendon whom accepted transfer. Advised to notify them of sepsis markers. Will repeat troponin at 1930 if patient still in the ED. . 10/27 13:35 Order name: Basic Metabolic Panel; Complete Time: 14:25 [facility] 10/27 16:57 Interpretation: Abnormal. [facility] 10/27 13:35 Order name: CBC with Diff; Complete Time: 18:04 [facility] 10/27 13:35 Order name: LFT's; Complete Time: 14:25 [facility] 10/27 13:35 Order name: Magnesium; Complete Time: 14:25 [facility] 10/27 13:35 Order name: NT PRO-BNP; Complete Time: 14:25 [facility] 10/27 13:35 Order name: PT-INR; Complete Time: 14:25 [facility] 10/27 13:35 Order name: Troponin (emerg Dept Use Only); Complete Time: 14:25 [facility] 10/27 17:34 Interpretation: Abnormal: TROPED 0.15. [facility] 10/27 13:35 Order name: XRAY Chest (1 view); Complete Time: 15:42 [facility] 10/27 13:35 Order name: AMMONIA; Complete Time: 14:25 [facility] 10/27 13:39 Order name: CT Chest For PE Angio; Complete Time: 15:42 [facility] 10/27 16:15 Order name: Lactate; Complete Time: 18:12 [facility] 10/27 16:15 Order name: Procalcitonin; Complete Time: 18:19 [facility] 10/27 17:49 Order name: CBC Smear Scan; Complete Time: 18:04 [facility] 10/27 19:26 Order name: Troponin (emerg Dept Use Only); Complete Time: 21:07 [facility] 10/27 13:35 Order name: EKG; Complete Time: 13:36 [facility] 10/27 13:35 Order name: Cardiac monitoring; Complete Time: 13:42 [facility] 10/27 13:35 Order name: EKG - Nurse/Tech; Complete Time: 13:40 [facility] 10/27 13:35 Order name: IV Saline Lock; Complete Time: 14:00 [facility] 10/27 13:35 Order name: Labs collected and sent; Complete Time: 14:00 [facility] 10/27 13:35 Order name: O2 Per Protocol; Complete Time: 14:04 [facility] 10/27 13:35 Order name: O2 Sat Monitoring; Complete Time: 13:42 [facility] 10/27 13:39 Order name: CT Abd/Pelvis - W/Contrast; Complete Time: 15:42 jmm EC:30 Rate is 78 beats/min. Rhythm is irregular, A flutter. Left axis deviation noted. WI jmm interval is normal. QRS interval is normal. QT interval is normal. No Q waves. T waves are Flattened in leads aVL, V1. No ST changes noted. Administered Medications: 14:00 Drug: Xopenex (3) 1.25 mg Route: Inhalation; bp 14:00 Drug: morphine 4 mg Route: IVP; Site: left antecubital; bp 15:07 Follow up: Response: Pain is decreased bp 14:00 Drug: Zofran 4 mg Route: IVP; Site: left antecubital; bp 15:08 Follow up: Response: No adverse reaction bp 15:10 Drug: Aspirin Chewable Tablet 324 mg Route: PO; bp 17:37 Follow up: Response: No adverse reaction bp 16:30 Drug: Ativan 1 mg Route: IVP; Site: left antecubital; bp 17:37 Follow up: Response: Anxiety decreased bp 17:15 Drug: Rocephin - (cefTRIAXone) 1 grams Route: IVPB; Infused Over: 30 mins; Site: left bp antecubital; Disposition: 10/27/18 18:27 Transfer ordered to [facility]. Diagnosis are Chest pain, unspecified, Elevated Troponin, Hepatic Encephalopathy, Abdominal Pain. - Reason for transfer: Higher level of care. - Accepting physician is [facility]. - Condition is Stable. - Problem is an acute exacerbation. - Symptoms are unchanged. Addendum: 10/29/2018 06:32 Co-signature as Attending Physician, Emanuel Bedolla MD I agree with the assessment and k dr plan of care. Signatures: Dispatcher [employer] EDCT Emanuel Bedolla MD MD kdr Mickail, Joel, PA PA [facility] Viviane Larios, RN RN ss Janice Maldonado, RN RN ed1 Williams Almonte, RN RN bp Corrections: (The following items were deleted from the chart) 10/27 17:34 17:34 TROPED 0.15. lubna rojas 19:40 18:27 10/27/2018 18:27 Transfer ordered to [facility]. Diagnosis is ed1 Chest pain, unspecified; Elevated Troponin; Hepatic Encephalopathy; Abdominal Pain. Reason for transfer: Higher level of care. Accepting physician is [facility]. Condition is Stable. Problem is an acute exacerbation. Symptoms are unchanged. [facility]
--- NOTE | 2018-10-27 18:28 | ER ---
Nurse's Notes [facility] Name: Tonny Cardona Age: 62 yrs Sex: Male : 1955 Arrival Date: 10/27/2018 Time: 13:24 Bed 2 Private MD: Diagnosis: Chest pain, unspecified;Elevated Troponin;Hepatic Encephalopathy;Abdominal Pain Presentation: 10/27 13:32 Presenting complaint: family member reports that patient was seen at [facility] yesterday to have paracentesis. Pt c/o shortness of breath, wheezing, L sided CP and increased abd pain since after procedure eating. Transition of care: patient was not received from another setting of care. Onset of symptoms was October 26, 2018. Risk Assessment: Do you want to hurt yourself or someone else? Patient reports no desire to harm self or others. Initial Sepsis Screen: Does the patient meet any 2 criteria? RR > 20 per min. No. Patient's initial sepsis screen is negative. Does the patient have a suspected source of infection? No. Patient's initial sepsis screen is negative. Care prior to arrival: None. 13:32 Method Of Arrival: Wheelchair ss 13:32 Acuity: FAIZA 2 ss Triage Assessment: 13:35 General: Appears in no apparent distress. comfortable, obese, Behavior is cooperative, bp drowsy. Pain: Complains of pain in chest. EENT: No deficits noted. Neuro: Level of Consciousness is obeys commands, lethargic, Oriented to Appropriate for age. Cardiovascular: No deficits noted. Respiratory: Airway is patent Respiratory effort is even, unlabored, Respiratory pattern is regular, symmetrical. GI: Abdomen is non-distended. : No signs and/or symptoms were reported regarding the genitourinary system. Derm: No deficits noted. Musculoskeletal: Circulation, motion, and sensation intact. Range of motion: intact in all extremities. Historical: - Allergies: 13:34 No Known Allergies; ss - PMHx: 13:34 Cirrhosis; Diabetes - NIDDM; Hypertension; psoriasis; ss - Immunization history:: Adult Immunizations up to date. - Social history:: Smoking status: Patient/guardian denies using tobacco, Patient/guardian denies using alcohol. - Ebola Screening: : Patient denies exposure to infectious person Patient denies travel to an Ebola-affected area in the 21 days before illness onset. Screenin:00 Abuse screen: Denies threats or abuse. Denies injuries from another. Nutritional bp screening: No deficits noted. Tuberculosis screening: No symptoms or risk factors identified. Fall Risk None identified. Assessment: 13:35 General: SEE TRIAGE NOTE. Pain: Pain does not radiate. Pain began 1 day ago. bp 15:49 Reassessment: PT ALTERED, ATTEMPTING TO EXIT BED DESPITE VERBAL DIRECTION FROM FAMILY bp AND STAFF. PT REQUIRING PHYSICAL REDIRECTION TO REPOSITION IN BED. +EXERTIONAL DYSPNEA. 17:00 Reassessment: TRANSFER PENDING. PT MEDICATED FOR AGITATION. bp 18:00 Reassessment: REPORT TO SMITA CONTRERAS AT [facility], TRANSPORT PENDING. bp 19:36 Reassessment: Patient appears in no apparent distress at this time. Patient and/or ed1 family updated on plan of care and expected duration. Pain level reassessed. Neuro: Level of Consciousness is awake, alert, obeys commands, Oriented to person, place, time, situation. Respiratory: Airway is patent Respiratory effort is even, unlabored, Respiratory pattern is regular, symmetrical, Breath sounds are clear bilaterally. Vital Signs: 13:34 BP 137 / 85; Pulse 80; Resp 25; Temp 97.9(O); Pulse Ox 100% on R/A; Weight 109.32 kg; Height 5 ft. 6 in. (167.64 cm); Pain 8/10; 14:30 BP 142 / 80; Pulse 80; Resp 21; Pulse Ox 100% ; bp 15:30 BP 152 / 67; Pulse 100; Resp 14; Pulse Ox 99% ; bp 17:00 BP 121 / 72; Pulse 106; Resp 17; Pulse Ox 99% ; bp 18:00 BP 124 / 73; Pulse 105; Resp 21; Pulse Ox 100% ; bp 19:36 BP 131 / 78; Pulse 107; Resp 21; Temp 97.5(O); Pulse Ox 99% on R/A; Pain 6/10; ed1 13:34 Body Mass Index 38.90 (109.32 kg, 167.64 cm) ED Course: 13:24 Patient arrived in ED. as 13:34 Triage completed. 13:34 Jake Trotter PA is [facility]. [facility] 13:34 Emanuel Bedolla MD is Attending Physician. jmm 13:34 Arm band placed on right wrist. ss 13:41 EKG done, by ED staff, reviewed by Jake BRITO. em1 13:45 Williams Almonte, RN is Primary Nurse. bp 13:54 Radiology exam delayed due to lab results not completed at this time. (BUN/Creatinine). mw3 14:00 Patient has correct armband on for positive identification. Bed in low position. Call bp light in reach. Side rails up X2. Adult w/ patient. Pulse ox on. NIBP on. 14:00 Initial lab(s) drawn, by me, sent to lab. Inserted saline lock: 20 gauge in left em1 antecubital area, using aseptic technique. Blood collected. 15:08 XRAY Chest (1 view) In Process Unspecified. EDMS 15:23 CT completed. Patient moved back from CT. mw3 15:24 CT Chest For PE Angio In Process Unspecified. EDMS 15:26 CT Abd/Pelvis - W/Contrast In Process Unspecified. EDMS 16:41 initiated a transfer with Robyn at the [facility] Transfer center. eb 16:[address] Garcia the GI publication distributor for [facility] with Jake BRITO for patient eb transfer consultation. 17:29 connected the hospitalist publication distributor with [facility] with Jake BRITO for patient transfer eb consultation. 17:47 administrative approval given by Zonia Gonzalez Rn from the [facility] transfer cener/ eb patient has been accepted by Dr. Hurtado at [facility] bed 914/ report to be called to [phone]. 19:36 No provider procedures requiring assistance completed. Patient transferred, IV remains ed1 in place. intact, No redness/swelling at site. Patient maintains SpO2 saturation greater than 95% on room air. Administered Medications: 14:00 Drug: Xopenex (3) 1.25 mg Route: Inhalation; bp 14:00 Drug: morphine 4 mg Route: IVP; Site: left antecubital; bp 15:07 Follow up: Response: Pain is decreased bp 14:00 Drug: Zofran 4 mg Route: IVP; Site: left antecubital; bp 15:08 Follow up: Response: No adverse reaction bp 15:10 Drug: Aspirin Chewable Tablet 324 mg Route: PO; bp 17:37 Follow up: Response: No adverse reaction bp 16:30 Drug: Ativan 1 mg Route: IVP; Site: left antecubital; bp 17:37 Follow up: Response: Anxiety decreased bp 17:15 Drug: Rocephin - (cefTRIAXone) 1 grams Route: IVPB; Infused Over: 30 mins; Site: left bp antecubital; Outcome: 18:27 ER care complete, transfer ordered by MD. calvo 19:36 Transferred by ground EMS EMS. to [facility], Transfer form ed1 completed. 19:36 Condition: stable 19:36 Discharge instructions given to patient, family, Instructed on the need for transfer, Demonstrated understanding of instructions. 19:40 Patient left the ED. ed1 Signatures: Dispatcher [employer] EDMS Jake Trotter PA PA jmm Martinez, Amelia as Martinez, Eric em1 Viviane Larios RN RN Janice Maldonado RN RN ed1 Williams Almonte RN RN bp Botello, Elizabeth eb Willis, Michelle mw3
[2018-10-27 20:00] VITALS: BP 131/78; TEMP 97.5; O2SAT 99
== END 2018-10-27 19:40 | disposition short-term general hospital (02) ==
LOC: ER 13:22
DX: K72.90 Hepatic failure, unspecified without coma (principal); D72.829 Elevated white blood cell count, unspecified; R10.9 Unspecified abdominal pain; K29.60 Other gastritis without bleeding; B96.81 Helicobacter pylori [H. pylori] as the cause of diseases classified elsewhere; K92.1 Melena; D63.8 Anemia in other chronic diseases classified elsewhere; E11.9 Type 2 diabetes mellitus without complications; I10 Essential (primary) hypertension; I50.32 Chronic diastolic (congestive) heart failure
CPT/HCPCS: 93005; 85025; 80048; 36415; 82140; 83735; 85610; 80076; 83605; 84484 ×2; 84145; 83880; 71275; 74177; 71045; 96375; 96374; 99285; Q9967; J0696; J2405

== ENCOUNTER 2018-12-11 06:38 | Day surgery (SDC) | payer OTHER ==
--- OUTSIDE RECORDS SUMMARY | 2018-12-11 06:42 | XMS REPORT | Clinical Summary ---
:[address] [facility] Address [address] [place] [address] Care Team Providers Name Role Phone Unavailable Primary Care Provider Unavailable Allergies No Known Allergies Medications Medication Sig Dispensed Refills Start Date End Date Status furosemide (LASIX) TK 1 T PO QAM 11 09/17/2018 Active 40 MG tablet AND QPM lactulose TK 15 ML PO TID 11 09/29/2018 Active (CHRONULAC) 10 gram/15 mL solution spironolactone Take 100 mg by 0 Active (ALDACTONE) 100 MG mouth 2 (two) tablet times daily. ALPRAZolam (XANAX) 1 TK 1 T PO BID 0 11/13/2018 Active MG tablet PRF ANXIETY carvedilol (COREG) Take 3.125 mg 0 07/04/2018 Active 3.125 MG tablet by mouth daily . folic acid (FOLVITE) TK 1 T PO QD 3 11/08/2018 Active 1 MG tablet hydrOXYzine (ATARAX) Take 50 mg by 0 04/11/2018 Active 50 MG tablet mouth as needed . lisinopril Take 20 mg by 0 07/04/2018 Active (PRINIVIL,ZESTRIL) mouth daily . 20 MG tablet metFORMIN Take 500 mg by 0 07/10/2018 Active (GLUCOPHAGE) 500 MG mouth 2 (two) tablet times daily with breakfast and dinner . pantoprazole Take 40 mg by 0 06/06/2018 Active (PROTONIX) 40 MG mouth daily . tablet pitavastatin calcium Take 2 mg by 0 Active (LIVALO) 2 mg Tab mouth daily . tablet thiamine 100 mg Tab TK 1 T PO D 3 11/19/2018 Active tablet lisinopril TK 1 T PO D 0 07/04/2018 Discontinued (PRINIVIL,ZESTRIL) 9 20 MG tablet rifAXIMin 550 mg Tab Take 1 tablet 60 tablet 0 10/31/2018 (550 mg total) 9 by mouth 2 (two) times daily for 30 days. levoFLOXacin Take 1 tablet 3 tablet 0 10/31/2018 (LEVAQUIN) 500 MG (500 mg total) 9 tablet by mouth daily for 3 days. Active Problems Problem Noted Date Immunity status testing 12/06/2018 SBP (spontaneous bacterial peritonitis) 10/30/2018 Portal hypertension 10/30/2018 Septic shock 10/30/2018 Hepatic encephalopathy 10/30/2018 Sepsis 10/27/2018 Alcoholic cirrhosis of liver with ascites 10/03/2018 [...] Encounters Date Type Specialty Care Team Description 12/10/2018 Abstract Transplant Shamar Michaels Hepatology 12/10/2018 Abstract Dorys García 12/06/2018 Office Visit Hepatology Ankur Dan Other ascites (Primary Dx) ; MD Alli Cirrhosis of liver with ascites, unspecified hepatic cirrhosis type (HCC); Paola Ernandez History of alcohol abuse; GIOVANNA Rodriguez Alcohol abuse with uncomplicated intoxication (HCC) ; Portal hypertension (HCC); Alcoholic cirrhosis of liver with ascites (HCC); Hepatic encephalopathy (HCC); Screening for cancer; Ascites due to alcoholic cirrhosis (HCC); Immunity status testing 10/29/2018 Outside Orders Lab Dane Farmer 10/28/2018 Orders Only General Internal Medicine 10/28/2018 Travel 10/27/2018 - [facility] Internal Yesenia Hurtado Severe sepsis (HCC) ; 10/31/2018 Encounter Medicine MD Malia Alcoholic cirrhosis of liver with ascites (HCC); Teresa, Ascites due to alcoholic cirrhosis (HCC); Stanley Jimenez, Acute metabolic encephalopathy; Portal hypertension (HCC); Rambo [place] Thrombocytopenia (HCC); MD Pastor Psoriasis; Shira, Lactic acidosis; MD Sedrick Encephalopathy; Metabolic syndrome; Decompensated hepatic cirrhosis (HCC); Hepatic encephalopathy (HCC); Other ascites; HCV antibody positive; Screening for malignant neoplasm; Immunity status testing 10/27/2018 Telephone Critical Care Jose Soto, transfer Medicine Jesús Yip MD 10/03/2018 Office Visit Hepatology Ankur Dan Alcoholic cirrhosis of liver with ascites (HCC); MD Alli Portal hypertension (HCC); Ascites due to alcoholic cirrhosis (HCC); Encephalopathy; Screening for endocrine, metabolic and immunity disorder; Screening for cancer; Metabolic syndrome 10/01/2018 Telephone Hepatology Nilam Bonilla Appointment A after 12/10/2017 Immunizations Name Dates Previously Given Next Due Pneumococcal Conjugate (Prevnar) 13-Valent 10/28/2018 Family History Medical History Relation Name Comments [...] Vital Sign Reading Time Taken Blood Pressure 134/85 12/06/2018 8:46 AM CDT Pulse 65 12/06/2018 8:46 AM CDT Temperature 36.4 C (97.6 F) 12/06/2018 8:46 AM CDT Respiratory Rate 16 12/06/2018 8:46 AM CDT Oxygen Saturation 99% 12/06/2018 8:46 AM CDT Inhaled Oxygen Concentration - - Weight 104.2 kg (229 lb 12.8 oz) 12/06/2018 8:46 AM CDT Height 167.6 cm (5' 6") 12/06/2018 8:46 AM CDT Body Mass Index 37.09 12/06/2018 8:46 AM CDT Plan of Treatment Date Type Specialty Care Team Description 01/24/2019 Office Visit Hepatology Ankur Dan MD [address] [address] Procedures Procedure Name Priority Date/Time Associated Diagnosis Comments CBC W/PLT COUNT & AUTO Routine 12/06/2018 9:49 Cirrhosis of liver Results for this DIFFERENTIAL AM CDT with ascites, procedure are in unspecified hepatic the results cirrhosis type (HCC) section. ETHANOL Routine 12/06/2018 9:49 Alcohol abuse with Results for this AM CDT uncomplicated procedure are in intoxication (HCC) the results Cirrhosis of liver section. with ascites, unspecified hepatic cirrhosis type (HCC) History of alcohol abuse PROTHROMBIN TIME/INR Routine 12/06/2018 9:49 Cirrhosis of liver Results for this AM CDT with ascites, procedure are in unspecified hepatic the results cirrhosis type (HCC) section. HEPATIC FUNCTION PANEL Routine 12/06/2018 9:49 Cirrhosis of liver Results for this AM CDT with ascites, procedure are in unspecified hepatic the results cirrhosis type (HCC) section. BASIC METABOLIC PANEL Routine 12/06/2018 9:49 Cirrhosis of liver Results for this (7) AM CDT with ascites, procedure are in unspecified hepatic the results cirrhosis type (HCC) section. CBC W/PLT COUNT & AUTO Routine 12/06/2018 9:49 Cirrhosis of liver Results for this DIFFERENTIAL AM CDT with ascites, procedure are in unspecified hepatic the results cirrhosis type (HCC) section. REPORT OF PROCEDURE - 11/01/2018 10:20 ENDOSCOPY SCAN AM CDT RHYTHM STRIP - SCAN 11/01/2018 10:20 AM CDT POCT-GLUCOSE METER Routine 10/31/2018 7:49 Results for this AM CDT procedure are in the results section. CBC W/PLT COUNT & AUTO Routine 10/31/2018 3:54 Results for this DIFFERENTIAL AM CDT procedure are in the results section. PHOSPHORUS Routine 10/31/2018 3:54 Results for this AM CDT procedure are in the results section. CALCIUM, IONIZED Routine 10/31/2018 3:54 Results for this AM CDT procedure are in the results section. MAGNESIUM Routine 10/31/2018 3:54 Results for this AM CDT procedure are in the results section. COMPREHENSIVE Routine 10/31/2018 3:54 Results for this METABOLIC PANEL AM CDT procedure are in the results section. CBC W/PLT COUNT & AUTO Routine 10/31/2018 3:54 Results for this DIFFERENTIAL AM CDT procedure are in the results section. POCT-GLUCOSE METER Routine 10/30/2018 9:27 Results for this PM CDT procedure are in the results section. POCT-GLUCOSE METER Routine 10/30/2018 5:18 Results for this PM CDT procedure are in the results section. POCT-GLUCOSE METER Routine 10/30/2018 12:41 Results for this PM CDT procedure are in the results section. POCT-GLUCOSE METER Routine 10/30/2018 11:46 Results for this AM CDT procedure are in the results section. POCT-GLUCOSE METER Routine 10/30/2018 8:02 Results for this AM CDT procedure are in the results section. (CELLAVISION MANUAL Routine 10/30/2018 3:07 Results for this DIFF) AM CDT procedure are in the results section. CBC W/PLT COUNT & AUTO Routine 10/30/2018 3:07 Results for this DIFFERENTIAL AM CDT procedure are in the results section. MAGNESIUM Routine 10/30/2018 3:07 Results for this AM CDT procedure are in the results section. COMPREHENSIVE Routine 10/30/2018 3:07 Results for this METABOLIC PANEL AM CDT procedure are in the results section. CBC W/PLT COUNT & AUTO Routine 10/30/2018 3:07 Results for this DIFFERENTIAL AM CDT procedure are in the results section. POCT-GLUCOSE METER Routine 10/29/2018 10:27 Results for this PM CDT procedure are in the results section. ECHOCARDIOGRAM REPORT 10/29/2018 9:01 - SCAN PM CDT POCT-GLUCOSE METER Routine 10/29/2018 6:24 Results for this PM CDT procedure are in the results section. VANCOMYCIN LEVEL, Timed 10/29/2018 4:49 Results for this TROUGH PM CDT procedure are in the results section. CBC W/PLT COUNT & AUTO STAT 10/29/2018 2:38 Results for this DIFFERENTIAL PM CDT procedure are in the results section. CBC W/PLT COUNT & AUTO STAT 10/29/2018 2:38 Results for this DIFFERENTIAL PM CDT procedure are in the results section. POCT-GLUCOSE METER Routine 10/29/2018 11:55 Results for this AM CDT procedure are in the results section. BODY FLUID CULTURE + Routine 10/29/2018 10:08 Results for this GRAM STAIN AM CDT procedure are in the results section. BODY FLUID CELL COUNT Routine 10/29/2018 10:08 Results for this WITH DIFFERENTIAL AM CDT procedure are in the results section. US PARACENTESIS STAT 10/29/2018 8:38 Results for this AM CDT procedure are in the results section. POCT-GLUCOSE METER Routine 10/29/2018 7:47 Results for this AM CDT procedure are in the results section. (CELLAVISION MANUAL Routine 10/29/2018 3:59 Results for this DIFF) AM CDT procedure are in the results section. CBC W/PLT COUNT & AUTO Routine 10/29/2018 3:59 Results for this DIFFERENTIAL AM CDT procedure are in the results section. LACTIC ACID, VENOUS STAT 10/29/2018 3:59 Results for this AM CDT procedure are in the results section. MAGNESIUM Routine 10/29/2018 3:59 Results for this AM CDT procedure are in the results section. COMPREHENSIVE Routine 10/29/2018 3:59 Results for this METABOLIC PANEL AM CDT procedure are in the results section. CBC W/PLT COUNT & AUTO Routine 10/29/2018 3:59 Results for this DIFFERENTIAL AM CDT procedure are in the results section. 2D ECHO W/ DOPPLER LAURA 10/29/2018 1:36 Results for this (CW/PW/COLOR) AM CDT procedure are in the results section. POCT-GLUCOSE METER Routine 10/28/2018 5:50 Results for this PM CDT procedure are in the results section. HEPATITIS C PCR, Routine 10/28/2018 1:00 Results for this QUANTITATIVE PM CDT procedure are in the results section. HEPATITIS C GENOTYPE Routine 10/28/2018 1:00 Results for this PM CDT procedure are in the results section. POCT-GLUCOSE METER Routine 10/28/2018 12:04 Results for this PM CDT procedure are in the results section. RESPIRATORY PANEL [facility] Routine 10/28/2018 10:57 Results for this AM CDT procedure are in the results section. RAPID INFLUENZA A&B Routine 10/28/2018 10:57 Results for this SCREEN AM CDT procedure are in the results section. LACTIC ACID, VENOUS STAT 10/28/2018 10:51 Results for this AM CDT procedure are in the results section. PROCALCITONIN STAT 10/28/2018 10:23 Results for this AM CDT procedure are in the results section. RESPIRATORY PANEL [facility] STAT 10/28/2018 9:53 Results for this AM CDT procedure are in the results section. LEGIONELLA URINE Routine 10/28/2018 9:52 Results for this ANTIGEN AM CDT procedure are in the results section. STREP PNEUMONIAE Routine 10/28/2018 9:52 Results for this ANTIGEN AM CDT procedure are in the results section. CT BRAIN WITHOUT IV STAT 10/28/2018 6:07 Results for this CONTRAST AM CDT procedure are in the results section. US ABDOMEN COMPLETE Routine 10/28/2018 5:18 Results for this AM CDT procedure are in the results section. TROPONIN I Routine 10/28/2018 4:57 Results for this AM CDT procedure are in the results section. RAPID DRUG SCREEN, LAURA 10/28/2018 4:57 Results for this URINE AM CDT procedure are in the results section. VITAMIN B12 AND FOLATE Routine 10/28/2018 4:57 Results for this AM CDT procedure are in the results section. IRON, TIBC, % SAT. Routine 10/28/2018 4:57 Results for this (WITHOUT FERRITIN) AM CDT procedure are in the results section. MAGNESIUM Routine 10/28/2018 4:57 Results for this AM CDT procedure are in the results section. LACTIC ACID, VENOUS Routine 10/28/2018 4:57 Results for this AM CDT procedure are in the results section. COMPREHENSIVE Routine 10/28/2018 4:57 Results for this METABOLIC PANEL AM CDT procedure are in the results section. ECG 12-LEAD STAT 10/28/2018 3:46 Results for this AM CDT procedure are in the results section. XR ABDOMEN 1 VIEW STAT 10/28/2018 1:28 Results for this AM CDT procedure are in the results section. AMMONIA Routine 10/28/2018 12:58 Results for this AM CDT procedure are in the results section. XR CHEST 1 VIEW STAT 10/28/2018 12:13 Results for this PORTABLE/BEDSIDE AM CDT procedure are in the results section. (CELLAVISION MANUAL STAT 10/28/2018 12:09 Results for this DIFF) AM CDT procedure are in the results section. CBC W/PLT COUNT & AUTO STAT 10/28/2018 12:09 Results for this DIFFERENTIAL AM CDT procedure are in the results section. MAGNESIUM Routine 10/28/2018 12:09 Results for this AM CDT procedure are in the results section. TROPONIN I Routine 10/28/2018 12:09 Results for this AM CDT procedure are in the results section. LACTIC ACID, VENOUS Routine 10/28/2018 12:09 Results for this AM CDT procedure are in the results section. PROTHROMBIN TIME/INR Routine 10/28/2018 12:09 Results for this AM CDT procedure are in the results section. URINALYSIS W/ REFLEX Routine 10/28/2018 12:09 Results for this URINE CULTURE AM CDT procedure are in the results section. COMPREHENSIVE STAT 10/28/2018 12:09 Results for this METABOLIC PANEL AM CDT procedure are in the results section. CBC W/PLT COUNT & AUTO STAT 10/28/2018 12:09 Results for this DIFFERENTIAL AM CDT procedure are in the results section. BLOOD CULTURE Routine 10/28/2018 12:09 Results for this AM CDT procedure are in the results section. BLOOD CULTURE Routine 10/28/2018 12:09 Results for this AM CDT procedure are in the results section. CBC W/PLT COUNT & AUTO Routine 10/03/2018 1:54 Alcoholic cirrhosis Results for this DIFFERENTIAL PM CDT of liver with ascites procedure are in (HCC) the results Portal hypertension section. (HCC) Ascites due to alcoholic cirrhosis (HCC) Encephalopathy Screening for endocrine, metabolic and immunity disorder Screening for cancer Metabolic syndrome NILS TITER AND PATTERN Routine 10/03/2018 1:54 Alcoholic cirrhosis Results for this PM CDT of liver with ascites procedure are in (HCC) the results Portal hypertension section. (HCC) Ascites due to alcoholic cirrhosis (HCC) Encephalopathy Screening for endocrine, metabolic and immunity disorder Screening for cancer Metabolic syndrome ALPHA FETOPROTEIN Routine 10/03/2018 1:54 Alcoholic cirrhosis Results for this (AFP), TUMOR MARKER PM CDT of liver with ascites procedure are in (HCC) the results Portal hypertension section. (HCC) Ascites due to alcoholic cirrhosis (HCC) Encephalopathy Screening for endocrine, metabolic and immunity disorder Screening for cancer Metabolic syndrome MITOCHONDRIA M2 Routine 10/03/2018 1:54 Alcoholic cirrhosis Results for this ANTIBODY (IGG) PM CDT of liver with ascites procedure are in (HCC) the results Portal hypertension section. (HCC) Ascites due to alcoholic cirrhosis (HCC) Encephalopathy Screening for endocrine, metabolic and immunity disorder Screening for cancer Metabolic syndrome ACTIN (SMOOTH MUSCLE) Routine 10/03/2018 1:54 Alcoholic cirrhosis Results for this ANTIBODY, IGG PM CDT of liver with ascites procedure are in (HCC) the results Portal hypertension section. (HCC) Ascites due to alcoholic cirrhosis (HCC) Encephalopathy Screening for endocrine, metabolic and immunity disorder Screening for cancer Metabolic syndrome ANTI-NUCLEAR ANTIBODY Routine 10/03/2018 1:54 Alcoholic cirrhosis Results for this (NILS) PM CDT of liver with ascites procedure are in (HCC) the results Portal hypertension section. (HCC) Ascites due to alcoholic cirrhosis (HCC) Encephalopathy Screening for endocrine, metabolic and immunity disorder Screening for cancer Metabolic syndrome CERULOPLASMIN Routine 10/03/2018 1:54 Alcoholic cirrhosis Results for this PM CDT of liver with ascites procedure are in (HCC) the results Portal hypertension section. (HCC) Ascites due to alcoholic cirrhosis (HCC) Encephalopathy Screening for endocrine, metabolic and immunity disorder Screening for cancer Metabolic syndrome [id number], Routine 10/03/2018 1:54 Alcoholic cirrhosis Results for this SERUM PM CDT of liver with ascites procedure are in (HCC) the results Portal hypertension section. (HCC) Ascites due to alcoholic cirrhosis (HCC) Encephalopathy Screening for endocrine, metabolic and immunity disorder Screening for cancer Metabolic syndrome FERRITIN Routine 10/03/2018 1:54 Alcoholic cirrhosis Results for this PM CDT of liver with ascites procedure are in (HCC) the results Portal hypertension section. (HCC) Ascites due to alcoholic cirrhosis (HCC) Encephalopathy Screening for endocrine, metabolic and immunity disorder Screening for cancer Metabolic syndrome IRON, TIBC, % SAT. Routine 10/03/2018 1:54 Alcoholic cirrhosis Results for this (WITHOUT FERRITIN) PM CDT of liver with ascites procedure are in (HCC) the results Portal hypertension section. (HCC) Ascites due to alcoholic cirrhosis (HCC) Encephalopathy Screening for endocrine, metabolic and immunity disorder Screening for cancer Metabolic syndrome HEPATITIS C ANTIBODY Routine 10/03/2018 1:54 Alcoholic cirrhosis Results for this PM CDT of liver with ascites procedure are in (HCC) the results Portal hypertension section. (HCC) Ascites due to alcoholic cirrhosis (HCC) Encephalopathy Screening for endocrine, metabolic and immunity disorder Screening for cancer Metabolic syndrome HEPATITIS B CORE Routine 10/03/2018 1:54 Alcoholic cirrhosis Results for this ANTIBODY, TOTAL PM CDT of liver with ascites procedure are in (HCC) the results Portal hypertension section. (HCC) Ascites due to alcoholic cirrhosis (HCC) Encephalopathy Screening for endocrine, metabolic and immunity disorder Screening for cancer Metabolic syndrome HEPATITIS B SURFACE Routine 10/03/2018 1:54 Alcoholic cirrhosis Results for this ANTIBODY PM CDT of liver with ascites procedure are in (HCC) the results Portal hypertension section. (HCC) Ascites due to alcoholic cirrhosis (HCC) Encephalopathy Screening for endocrine, metabolic and immunity disorder Screening for cancer Metabolic syndrome HEPATITIS B SURFACE Routine 10/03/2018 1:54 Alcoholic cirrhosis Results for this ANTIGEN PM CDT of liver with ascites procedure are in (HCC) the results Portal hypertension section. (HCC) Ascites due to alcoholic cirrhosis (HCC) Encephalopathy Screening for endocrine, metabolic and immunity disorder Screening for cancer Metabolic syndrome HEPATITIS A ANTIBODY, Routine 10/03/2018 1:54 Alcoholic cirrhosis Results for this IGM PM CDT of liver with ascites procedure are in (HCC) the results Portal hypertension section. (HCC) Ascites due to alcoholic cirrhosis (HCC) Encephalopathy Screening for endocrine, metabolic and immunity disorder Screening for cancer Metabolic syndrome HEPATITIS A ANTIBODY, Routine 10/03/2018 1:54 Alcoholic cirrhosis Results for this IGG PM CDT of liver with ascites procedure are in (HCC) the results Portal hypertension section. (HCC) Ascites due to alcoholic cirrhosis (HCC) Encephalopathy Screening for endocrine, metabolic and immunity disorder Screening for cancer Metabolic syndrome PROTHROMBIN TIME/INR Routine 10/03/2018 1:54 Alcoholic cirrhosis Results for this PM CDT of liver with ascites procedure are in (HCC) the results Portal hypertension section. (HCC) Ascites due to alcoholic cirrhosis (HCC) Encephalopathy Screening for endocrine, metabolic and immunity disorder Screening for cancer Metabolic syndrome CBC W/PLT COUNT & AUTO Routine 10/03/2018 1:54 Alcoholic cirrhosis Results for this DIFFERENTIAL PM CDT of liver with ascites procedure are in (HCC) the results Portal hypertension section. (HCC) Ascites due to alcoholic cirrhosis (HCC) Encephalopathy Screening for endocrine, metabolic and immunity disorder Screening for cancer Metabolic syndrome BILIRUBIN, DIRECT Routine 10/03/2018 1:54 Alcoholic cirrhosis Results for this PM CDT of liver with ascites procedure are in (HCC) the results Portal hypertension section. (HCC) Ascites due to alcoholic cirrhosis (HCC) Encephalopathy Screening for endocrine, metabolic and immunity disorder Screening for cancer Metabolic syndrome COMPREHENSIVE Routine 10/03/2018 1:54 Alcoholic cirrhosis Results for this METABOLIC PANEL PM CDT of liver with ascites procedure are in (HCC) the results Portal hypertension section. (HCC) Ascites due to alcoholic cirrhosis (HCC) Encephalopathy Screening for endocrine, metabolic and immunity disorder Screening for cancer Metabolic syndrome after 12/10/2017 Results CBC with platelet count + automated diff (12/06/2018 9:49 AM CDT)Only the most recent of7 resultswithin the time period is included. WBC 5.1 3.5 - 10.5 K/L [facility] RBC 3.19 (L) 4.63 - 6.08 M/L [facility] Hemoglobin 10.5 (L) 13.7 - 17.5 GM/DL [facility] Hematocrit 32.6 (L) 40.1 - 51.0 % [facility] MCV 102.2 (H) 79.0 - 92.2 fL [facility] MCH 32.9 (H) 25.7 - 32.2 pg [facility] MCHC 32.2 (L) 32.3 - 36.5 GM/DL [facility] RDW 14.5 (H) 11.6 - 14.4 % [facility] Platelets 59 (L) 150 - 450 K/CU MM [facility] MPV 10.9 9.4 - 12.4 fL [facility] nRBC 0 0 - 0 /100 WBC [facility] % Neutros 44 % [facility] % Lymphs 39 % [facility] % Monos 11 % [facility] % Eos 5 % [facility] % Baso 1 % [facility] # Neutros 2.26 1.78 - 5.38 K/L [facility] # Lymphs 1.99 1.32 - 3.57 K/L [facility] # Monos 0.55 0.30 - 0.82 K/L [facility] # Eos 0.24 0.04 - 0.54 K/L [facility] # Baso 0.05 0.01 - 0.08 K/L [facility] Immature 0 0 - 1 % [facility] Specimen Blood Performing Organization Address City/[facility]/Zipcode Phone Number [place] [phone] [place] [address] C[facility] Prothrombin time/INR (12/06/2018 9:49 AM CDT)Only the most recent of3 resultswithin the time period is included. Protime 18.4 (H) 11.9 - 14.2 seconds [facility] INR 1.6 <=5.9 [facility] Specimen Blood Narrative Performed At Effective 10/24/2018: PT Reference Range [facility] Change New: 11.9-14.2Previous: 11.7-14.7 RECOMMENDED COUMADIN/WARFARIN INR THERAPY RANGES STANDARD DOSE: 2.0-3.0Includes: PROPHYLAXIS for venous thrombosis, systemic embolization; TREATMENT for venous thrombosis and/or pulmonary embolus. HIGH RISK: Target INR is 2.5-3.5 for patients wiht mechanical heart valves. Performing Organization Address City/State/Zipcode Phone Number [facility] [address] [place] [address] [place] Ethanol (12/06/2018 9:49 AM CDT) Ethanol Lvl <10 <=10 mg/dL [facility] Specimen Blood Performing Organization Address [facility] Phone Number [address] [address] [place] Hepatic function panel (12/06/2018 9:49 AM CDT) Protein, Total 7.0 6.0 - 8.3 gm/dL [facility] Albumin 2.7 (L) 3.5 - 5.0 g/dL [facility] Total Bilirubin 3.8 (H) 0.2 - 1.2 mg/dL [facility] Bilirubin, Direct 1.3 (H) 0.1 - 0.5 mg/dL [facility] Alkaline Phosphatase 186 (H) 40 - 150 U/L [facility] AST 43 (H) 5 - 34 U/L [facility] ALT 27 6 - 55 U/L [facility] Specimen Blood Narrative Performed At Specimen moderately icteric [facility] Performing Organization Address City/[facility] Phone Number [address] [address] [place] Basic Metabolic Panel (12/06/2018 9:49 AM CDT) Sodium 135 (L) 136 - 145 meq/L [facility] Potassium 3.8 3.5 - 5.1 meq/L [facility] Chloride 102 98 - 107 meq/L [facility] CO2 28 22 - 29 meq/L [facility] BUN 5 (L) 7 - 21 mg/dL [facility] Creatinine 0.80 0.57 - 1.25 mg/dL [facility] Glucose 237 (H) 70 - 105 mg/dL [facility] Calcium 8.3 (L) 8.4 - 10.2 mg/dL [facility] EGFR 98Comment: ESTIMATED GFR IS mL/min/1.73 sq m [facility] NOT ACCURATE [facility] CLEARANCE IN PREDICTING GLOMERULAR FILTRATION RATE. ESTIMATED GFR IS NOT APPLICABLE FOR DIALYSIS PATIENTS. Specimen Blood Narrative Performed At Specimen moderately icteric [facility] Performing Organization Address City/[facility]/Zipcode Phone Number [address] [address] CENTER EKG-SCANNED (11/01/2018 10:20 AM CDT) Narrative Performed At RHYTHM STRIP - SCAN (11/01/2018 10:20 AM CDT) Narrative Performed At POC-Glucose meter (10/31/2018 7:49 AM CDT)Only the most recent of12 resultswithin the time period is included. POC-Glucose Meter 117 (H)Comment: TESTED AT 70 - 110 mg/dL [facility] [address] [place] [id number] Specimen Blood Performing Organization Address City/[facility] Phone Number [address] [address] [phone] CENTER Calcium, Ionized (10/31/2018 3:54 AM CDT) Calcium, Ion 1.01 (L) 1.12 - 1.27 mmol/L [facility] pH, Blood 7.45 [facility] Specimen Blood Performing Organization Address City/[facility]/Zipcode Phone Number [address] [address] CENTER Phosphorus (10/31/2018 3:54 AM CDT) Phosphorus 3.3 2.3 - 4.7 mg/dL [facility] Specimen Blood Performing Organization Address City/State/Zipcode Phone Number [facility] [address] [place] [address] [phone] [place] Magnesium (10/31/2018 3:54 AM CDT)Only the most recent of5 resultswithin the time period is included. Magnesium 1.5 (L) 1.6 - 2.6 mg/dL [facility] Specimen Blood Performing Organization Address City/State/Zipcode Phone Number [facility] [address] [place] [address] [place] Comprehensive metabolic panel (10/31/2018 3:54 AM CDT)Only the most recent of6 resultswithin the time period is included. Protein, Total 5.4 (L) 6.0 - 8.3 gm/dL [facility] Albumin 2.5 (L) 3.5 - 5.0 g/dL [facility] Alkaline Phosphatase 100 40 - 150 U/L [facility] Total Bilirubin 3.0 (H) 0.2 - 1.2 mg/dL [facility] Sodium 137 136 - 145 meq/L [facility] Potassium 3.8 3.5 - 5.1 meq/L [facility] Chloride 110 (H) 98 - 107 meq/L [facility] CO2 24 22 - 29 meq/L [facility] BUN 6 (L) 7 - 21 mg/dL [facility] Creatinine 0.66 0.57 - 1.25 mg/dL [facility] Glucose 100 70 - 105 mg/dL [facility] Calcium 7.7 (L) 8.4 - 10.2 mg/dL [facility] AST 65 (H) 5 - 34 U/L [facility] ALT 31 6 - 55 U/L [facility] EGFR 123Comment: ESTIMATED mL/min/1.73 sq m [facility] GFR IS NOT ACCURATE [facility] CREATININE CLEARANCE IN PREDICTING GLOMERULAR FILTRATION RATE. ESTIMATED GFR IS NOT APPLICABLE FOR DIALYSIS PATIENTS. Specimen Blood Narrative Performed At Specimen slightly icteric [facility] Performing Organization Address City/[facility] Hospital[facility] Phone Number [facility] [address] [place] [phone] CENTER Manual Differential (10/30/2018 3:07 AM CDT)Only the most recent of3 resultswithin the time period is included. % Neutros 64 % [facility] % Lymphs 28 % [facility] % Monos 5 % [facility] % Eos 3 % [facility] # Neutros 3.84 1.78 - 5.38 K/ul [facility] # Lymphs 1.68 1.32 - 3.57 K/ul [facility] # Monos 0.30 0.30 - 0.82 K/uL [facility] # Eos 0.18 0.04 - 0.54 K/uL [facility] Total Counted 100 [facility] WBC Morphology Normal [facility] Platelet Morphology Normal [facility] Anisocytosis 1+ few [facility] Macrocytes 1+ few [facility] Artifact Present [facility] Platelet Conc Decreased [facility] Specimen Blood Narrative Performed At Received comment: [facility] User comments: Slide comments: Performing Organization Address City/State/Zipcode Phone Number [facility] [address] [place] [address] CENTER ECHOCARDIOGRAM REPORT - SCAN (10/29/2018 9:01 PM CDT) Narrative Performed At Vancomycin level, trough (10/29/2018 4:49 PM CDT) Vancomycin Tr 7.3 (L) 10.0 - 20.0 ug/mL [facility] Specimen Blood Performing Organization Address [facility] Phone Number [address] [address] [place] Body fluid culture + gram stain (10/29/2018 10:08 AM CDT) Result No growth [facility] Gram Stain Result 1+ WBCs [facility] Gram Stain Result No organisms seen [facility] Specimen Body Fluid Performing Organization Address [facility] Phone Number [address] [address] [place] Body fluid cell count with differential (10/29/2018 10:08 AM CDT) Appearance Hazy (A) Clear [facility] Color Yellow (A) Colorless, Straw [facility] RBCs 6,000 (H) <=1 /cu mm [facility] Adjusted WBC Count 252 (H) <=5 /cu mm [facility] Lining Cells 28 (H) <=1 /cu mm [facility] % Segs 36 % [facility] % Lymphs 22 % [facility] % Monos 42 % [facility] % Eos 0 % [facility] % Baso 0 % [facility] Container Body Fluid EDTA Tube [facility] Specimen Body Fluid Performing Organization Address City/[facility] Phone Number [address] [address] CENTER US paracentesis (10/29/2018 8:38 AM CDT) Specimen Narrative Performed At FINAL REPORT [facility] PROCEDURE: Ultrasound-guided paracentesis. Operators: This procedure was performed by DARYL Charles under my direct supervision. INDICATION: Ascites. DESCRIPTION: After obtaining informed written consent, ultrasound scan of the abdomen identified ascites in the right mid quadrant. The overlying skin was prepped and draped in the usual, sterile fashion and local 2% lidocaine anesthesia was administered. A 5 [place] catheter was advanced into the peritoneal cavity and 1300 cc of addison fluid was removed. The catheter was removed without immediate complication. Samples left with interstitial sent to the lab for analysis. IMPRESSION: Uncomplicated ultrasound-guided paracentesis with 1300 cc fluid removed. Signed: Mauricio Cullen MD Report Verified Date/Time:10/29/2018 17:34:00 Reading Location: [address] Ultrasound Reading Room Procedure Note Interface, External Ris In - 10/29/2018 5:36 PM CDT FINAL REPORT PROCEDURE: Ultrasound-guided paracentesis. Operators: This procedure was performed by DARYL Charles under my direct supervision. INDICATION: Ascites. DESCRIPTION: After obtaining informed written consent, ultrasound scan of the abdomen identified ascites in the right mid quadrant. The overlying skin was prepped and draped in the usual, sterile fashion and local 2% lidocaine anesthesia was administered. A 5 [place] catheter was advanced into the peritoneal cavity and 1300 cc of addison fluid was removed. The catheter was removed without immediate complication. Samples left with interstitial sent to the lab for analysis. IMPRESSION: Uncomplicated ultrasound-guided paracentesis with 1300 cc fluid removed. Signed: Mauricio Cullen MD Report Verified Date/Time: 10/29/2018 17:34:00 Reading Location: [address] Ultrasound Reading Room Performing Organization Address City/State/Zipcode Phone Number [facility] Lactic acid, venous (10/29/2018 3:59 AM CDT)Only the most recent of4 resultswithin the time period is included. Lactate, Venous 1.3 0.5 - 2.2 mmol/L [facility] Specimen Blood Narrative Performed At Specimen moderately icteric [facility] Performing Organization Address City/State/Zipcode Phone Number [facility] [address] [place], [place] [phone] CENTER 2D Echo W/Doppler(CW/PW/Color) (10/29/2018 1:36 AM CDT) Ejection Fraction [facility] ECHO [facility] Specimen Narrative Performed At Transthoracic Echocardiography Report (TTE) [facility] Demographics Patient Name KALEN CARDONA Date of Study 10/29/2018 [id number] GenderMale Visit Number [id number] Unknown [id number] Room Number 7409 Number Date of Birth1955Referring Physician Bryant Finley Age62 year(s)Sales Attendant Belén Becerra RDCS, RVT InterpretingAndrae Tovar MD Physician Fellow Booker Tejada Procedure Type of Study TTE procedure:2DECHO W DOPPLER(CW/PW/COLOR) (Routine) Indications:Acute Chest Pain/ Suspected CAD. Clinical History HTN HGB 11 HCT 33 % Height: 66 inches Weight: 107.95 kg (238 lbs) BSA: 2.15 m^2 BMI: 38.41 kg/m^2 HR: 69 bpm BP: 125/66 mmHg Summary The left ventricle is chamber size (by vol index) is normal (male - LVED vol - 34-74ml/m2). Normal LV wall thickness. All of the LV segments contract normally . LVEF by Polo's method of disk assessment is increased (>60%) . Estimated PA systolic pressure is 20-25mmHg plus No significant pericardial effusion is visualized. Previous Study No previous studies. Signature Findings Rhythm/BPRegular sinus rhythm during the exam. Left Ventricle The LV endocardium is well visualized. The left ve ntricle is chamber size (by vol index) is normal (m odalis - LVED vol - 34-74ml/m2). Normal LV wall th ickness. All of the LV segments contract normally . LVEF by Polo's method of disk assessment is in creased (>60%) . Normal diastolic function. In creased (cardiac index 3.5-4.0 L/min/m2) cardiac ou tput state at rest is noted. Left AtriumLA size is mildly enlarged . Right VentricleRV chamber size is normal . Gl obal RV systolic function is normal . Right Atrium RA size is normal. Atrial SeptumNormal interatrial septum by available views. Aortic Valve Normal AoV structure and function by limited views an d Doppler. Mitral Valve Normal MV structure and function by available views an d doppler. Tricuspid ValveA trace of tricuspid regurgitation. Es timated PA systolic pressure is 20-25mmHg plus Pulmonic Valve Normal PV structure and function by limited views an d Doppler. AortaAortic root size (SInus of Valsalva diameter) is no rmal . Th e aortic sinotubular junction appears normal . PericardiumNo significant pericardial effusion is visualized. IVC/SVC/PA/PV/PleuralThe estimated RA pressure by IVC dynamics 5-10mmHg . Chambers/Structures Left Atrium LA Volume: 78.85 ml LA Area: 23.78 cm^2 LA Vol. Index: 37 ml/m^2 Left Ventricle LVIDd: 5.17 cm LVEDV:130.89 ml LVIDs: 3.1 cm LV Septum Diastolic: 1.08 cm LV PW Diastolic: 1.07 cm LV FS: 40 % LVEDV Polo's:135.32 ml LVESV Polo's:33.3 ml LVEDVI: 63 ml/m^2 LVEF Polo's: 75.4 % LVESVI: 15 ml/m^2 LVOT Diameter: 2.16 cm Doppler/Quantitative Measurements Mitral Valve MV Peak E-Wave: 1.16 m/sMV Peak A-Wave: 0.94 m/s E/A Ratio: 1.24 Peak Gradient: 5.41 mmHg Deceleration Time: 210 msec MV Laurent. Peak: Tissue Doppler E' Lateral Velocity: 0.11 m/s A' Lateral Velocity: 0.12 m/s E/E': 10.87 Aortic Valve Peak Velocity: 2.13 m/sMean Velocity: 1.49 m/s Peak Gradient: 18.12 mmHgMean Gradient: 10.27 mmHg AV Area (continuity): 3.18 cm^2 AV VTI: 44.14 cm AV DVI: 0.87 LVOT Peak Velocity: 1.61 m/sPeak Gradient: 10.31 mmHg Mean Velocity: 1.18 m/sMean Gradient: 6.04 mmHg LVOT Diameter: 2.16 cm LVOT VTI: 38.29 cm LVOT Area: 3.66 cm^2 LVOT SV:140.24 ml LVOT CO: 9.68 l/minLVOT CI: 4.5 l/min/m^2 RVOT RVOT VTI (PW): 17.36 cm Tricuspid Valve TR Velocity: 2.03 m/s TR Gradient: 16.44 mmHg Pulmonic Valve Peak Velocity: 1.37 m/s Peak Gradient: 7.51 mmHg Mean Velocity: 0.93 m/s Mean Gradient: 3.45 mmHg Procedure Note Interface, External Ris In - 10/29/2018 11:12 AM CDT Transthoracic Echocardiography Report (TTE) Demographics Patient Name KALEN CARDONA Date of Study 10/29/2018 Gender Male Visit Number [id number] Race Unknown Room Number 7409 Number Date of 1955 Referring Physician Bryant Finley Age 62 year(s) Sales Attendant Belén Becerra [facility], RVT Interpreting Andrae Tovar MD Physician Fellow Booker Tejada Procedure Type of Study TTE procedure:2DECHO W DOPPLER(CW/PW/COLOR) (Routine) Indications:Acute Chest Pain/ Suspected CAD. Clinical History HTN HGB 11 HCT 33 % Height: 66 inches Weight: 107.95 kg (238 lbs) BSA: 2.15 m^2 BMI: 38.41 kg/m^2 HR: 69 bpm BP: 125/66 mmHg Summary The left ventricle is chamber size (by vol index) is normal (male - LVED vol - 34-74ml/m2). Normal LV wall thickness. All of the LV segments contract normally . LVEF by Polo's method of disk assessment is increased (>60%) . Estimated PA systolic pressure is 20-25mmHg plus No significant pericardial effusion is visualized. Previous Study No previous studies. Signature Findings Rhythm/BP Regular sinus rhythm during the exam. Left Ventricle The LV endocardium is well visualized. The left ventricle is chamber size (by vol index) is normal (male - LVED vol - 34-74ml/m2). Normal LV wall thickness. All of the LV segments contract normally . LVEF by Polo's method of disk assessment is increased (>60%) . Normal diastolic function. Increased (cardiac index 3.5-4.0 L/min/m2) cardiac output state at rest is noted. Left Atrium LA size is mildly enlarged . Right Ventricle RV chamber size is normal . Global RV systolic function is normal . Right Atrium RA size is normal. Atrial Septum Normal interatrial septum by available views. Aortic Valve Normal AoV structure and function by limited views and Doppler. Mitral Valve Normal MV structure and function by available views and doppler. Tricuspid Valve A trace of tricuspid regurgitation. Estimated PA systolic pressure is 20-25mmHg plus Pulmonic Valve Normal PV structure and function by limited views and Doppler. Aorta Aortic root size (SInus of Valsalva diameter) is normal . The aortic sinotubular junction appears normal . Pericardium No significant pericardial effusion is visualized. IVC/SVC/PA/PV/Pleural The estimated RA pressure by IVC dynamics 5-10mmHg . Chambers/Structures Left Atrium LA Volume: 78.85 ml LA Area: 23.78 cm^2 LA Vol. Index: 37 ml/m^2 Left Ventricle LVIDd: 5.17 cm LVEDV:130.89 ml LVIDs: 3.1 cm LV Septum Diastolic: 1.08 cm LV PW Diastolic: 1.07 cm LV FS: 40 % LVEDV Polo's:135.32 ml LVESV Polo's:33.3 ml LVEDVI: 63 ml/m^2 LVEF Polo's: 75.4 % LVESVI: 15 ml/m^2 LVOT Diameter: 2.16 cm Doppler/Quantitative Measurements Mitral Valve MV Peak E-Wave: 1.16 m/s MV Peak A-Wave: 0.94 m/s E/A Ratio: 1.24 Peak Gradient: 5.41 mmHg Deceleration Time: 210 msec MV Laurent. Peak: Tissue Doppler E' Lateral Velocity: 0.11 m/s A' Lateral Velocity: 0.12 m/s E/E': 10.87 Aortic Valve Peak Velocity: 2.13 m/s Mean Velocity: 1.49 m/s Peak Gradient: 18.12 mmHg Mean Gradient: 10.27 mmHg AV Area (continuity): 3.18 cm^2 AV VTI: 44.14 cm AV DVI: 0.87 LVOT Peak Velocity: 1.61 m/s Peak Gradient: 10.31 mmHg Mean Velocity: 1.18 m/s Mean Gradient: 6.04 mmHg LVOT Diameter: 2.16 cm LVOT VTI: 38.29 cm LVOT Area: 3.66 cm^2 LVOT SV:140.24 ml LVOT CO: 9.68 l/min LVOT CI: 4.5 l/min/m^2 RVOT RVOT VTI (PW): 17.36 cm Tricuspid Valve TR Velocity: 2.03 m/s TR Gradient: 16.44 mmHg Pulmonic Valve Peak Velocity: 1.37 m/s Peak Gradient: 7.51 mmHg Mean Velocity: 0.93 m/s Mean Gradient: 3.45 mmHg Performing Organization Address City/State/Zipcode Phone Number [facility] ECHO [facility] Hepatitis C genotype (10/28/2018 1:00 PM CDT) HCV Genotype, LiPA NOT DETECTED [facility] Comment: INCORPORATED Unable to obtain genotype due to low or no viral load, mutations in viral genome at assay priming sites, or presence of inhibitory substance. Viral load of >=300 IU/mL is required for testing. The method used in this test is RT-PCR and reverse hybridization (Line Probe) of the 5' UTR and core region of the HCV genome. The analytical performance characteristics of this assay have been determined by [facility]. The modifications have not been cleared or approved by the FDA. This assay has been validated pursuant to the CLIA regulations and is used for clinical purposes. For additional information, please refer to http://education.Illumagear /faq/HCVGenotyping (This link id being provided for informational/ educational purposes only.) Specimen Blood Narrative Performed At Performing Lab [facility] *[facility] [address] [place] [address] Carmine Cooley MD Performing Organization Address City/State/[facility] Hospitalcode Phone [place] [address] INCORPORATED [address] [facility] Hepatitis C PCR, Quantitative (10/28/2018 1:00 PM CDT) HCV PCR, Quantitative HCV RNA not detected HCV RNA not detected [facility] Specimen Blood Narrative Performed At This test uses a Real-Time Polymerase Chain [facility] Reaction (RT-PCR) methodology and was performed using [employer] Ampliprep/KHOA TaqMan HCV test kit version 2.0 ([employer]). Reportable range for this assay is 15 - 100,000,000 IU per mL (1.18 - 8.00 Log IU/mL). Performing Organization Address City/State/Zipcode Phone Number [address] [address] CENTER Respiratory Panel [facility] (10/28/2018 10:57 AM CDT)Only the most recent of2 resultswithin the time period is included. Human Metapneumovirus Not detected Not detected, [facility] Rhinovirus Not detected Not detected, [facility] Influenza A Not detected Not detected, [facility] INFLUENZA A (NO SUBTYPE) Not detected, [facility] Influenza A subtype H1 Not detected, [facility] Influenza A Subtype H3 Not detected, [facility] Influenza A Subtype H1-2009 Not detected, [facility] Influenza B Not detected Not detected, [facility] Respiratory Syncytial Virus Not detected Not detected, [facility] Parainfluenza Virus 1 Not detected Not detected, [facility] Parainfluenza Virus 2 Not detected Not detected, [facility] Parainfluenza virus 3 Not detected Not detected, [facility] Parainfluenza Virus 4 Not detected Not detected, [facility] Adenovirus Not detected Not detected, [facility] Coronavirus 229E Not detected Not detected, [facility] Coronavirus HKU1 Not detected Not detected, [facility] Coronavirus NL63 Not detected Not detected, [facility] Coronavirus OC43 Not detected Not detected, [facility] Bordetella Pertussis Not detected Not detected, [facility] Chlamydophila Pneumoniae Not detected Not detected, [facility] Mycoplasma Pneumoniae Not detected Not detected, [facility] Specimen Nasopharyngeal Narrative Performed At Other viruses and bacteria not targeted by [facility] this PCR panel cannot be excluded; therefore clinical correlation and follow up of serology, culture results, and other molecular studies is required. The results are not intended to be used as the sole means for clinical diagnosis or patient management decisions. This sample was tested at the [facility] using the [employer] FilmArray Respiratory Panel. It is FDA cleared and has been verified and approved by the [facility] for clinical use on nasopharyngeal swab specimens. The performance of the FilmArray RP has not been established in individuals who received influenza vaccine.Recent administration of a nasal influenza vaccine may cause false positive results for Influenza A and/or Influenza B. Performing Organization Address [facility] Hospitalcomd Phone Number [address] [address] [place] Rapid Influenza A&B Screen (10/28/2018 10:57 AM CDT) Rapid Influenza A Antigen Negative Negative, Inconclusive [facility] Rapid influenza B Antigen Negative Negative, Inconclusive [facility] Specimen Nasal Performing Organization Address [facility] [place] Phone Number [address] [address] [place] Procalcitonin (10/28/2018 10:23 AM CDT) Procalcitonin 4.50 (H) <0.05 ng/mL [facility] Specimen Blood Narrative Performed At SEPSIS RISK (ng/mL) [facility] Low:0.05-0.50 Intermediate: 0.51-2.00 High: >=2.01 Performing Organization [facility] [place] Phone Number [address] [address] [place] Strep pneumoniae antigen (10/28/2018 9:52 AM CDT) Strep pneumoniae Presumptive negative Presumptive negative [facility] Antigen for pneumococcal for pneumococcal [facility] pneumonia - see comment pneumonia - see CENTER comment, Presumptive negative for pneumococcal meningitis - see comment Specimen Urine Narrative Performed At Presumptive negative for pneumococcal [facility] pneumonia, suggesting no current or recent pneumococcal infection. Infection due to S. pneumoniae cannot be ruled out since the antigen present in the sample may be below the detection limit of the test. Performing Organization Address [facility]/Zipcode Phone Number [facility] [address] [place] [address] [place] Legionella antigen, urine (10/28/2018 9:52 AM CDT) [facility] Ant[facility] Negative - see [facility] commentComment: Negative [facility] for L. pneumophila serogroup 1 antigen, suggesting no recent or current infection with this serogroup. Legionellosis cannot be ruled out since other serogroups and species may cause disease. Specimen Urine Performing Organization Address City/State/Zipcode Phone Number [facility] [address] [place] [address] brain without IV contrast (10/28/2018 6:07 AM CDT) Specimen Narrative Performed At FINAL REPORT [facility] CT, BRAIN, WITHOUT CONTRAST CLINICAL INDICATION:Confusion/delirium, altered LOC, unexplained COMPARISON: None TECHNIQUE:Noncontrast axial CT imaging of the brain and skull. Coronal and sagittal reformats obtained. DOSE REDUCTION: Dose modulation, iterative reconstruction, and/or weight-based adjustment of the mA/kV was utilized to reduce the radiation dose to as low as reasonably achievable. FINDINGS: Cerebral parenchyma: Age related parenchymal volume loss and white matter hypoattenuation present. No mass, acute intracranial hemorrhage or acute cortical infarct. Midline structures: Normally positioned. Cerebellum and brainstem: Normal. Ventricles: Ventricular prominence is proportional to degree of parenchymal volume loss. 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 Calvarium and skull base: Intact. Paranasal sinuses and mastoid air cells: Left maxillary sinus presentation cysts or polyps, 2 cm. Orbital contents: Included portions unremarkable. Additional findings: None. IMPRESSION: No acute intracranial abnormality. 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 If there is persistent clinical concern for intracranial pathology, MR examination is recommended for further characterization. Signed: Efrain Day MD Report Verified Date/Time:10/28/2018 06:42:47 Procedure Note Interface, External Ris In - 10/28/2018 6:45 AM CDT FINAL REPORT CT, BRAIN, WITHOUT CONTRAST CLINICAL INDICATION: Confusion/delirium, altered LOC, unexplained COMPARISON: None TECHNIQUE: Noncontrast axial CT imaging of the brain and skull. Coronal and sagittal reformats obtained. DOSE REDUCTION: Dose modulation, iterative reconstruction, and/or weight-based adjustment of the mA/kV was utilized to reduce the radiation dose to as low as reasonably achievable. FINDINGS: Cerebral parenchyma: Age related parenchymal volume loss and white matter hypoattenuation present. No mass, acute intracranial hemorrhage or acute cortical infarct. Midline structures: Normally positioned. Cerebellum and brainstem: Normal. Ventricles: Ventricular prominence is proportional to degree of parenchymal volume loss. 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 Calvarium and skull base: Intact. Paranasal sinuses and mastoid air cells: Left maxillary sinus presentation cysts or polyps, 2 cm. Orbital contents: Included portions unremarkable. Additional findings: None. IMPRESSION: No acute intracranial abnormality. 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 If there is persistent clinical concern for intracranial pathology, MR examination is recommended for further characterization. Signed: Efrain Day MD Report Verified Date/Time: 10/28/2018 06:42:47 Performing Organization Address City/State/Zipcode Phone Number [facility] US abdomen complete (10/28/2018 5:18 AM CDT) Specimen Narrative Performed At FINAL REPORT [facility] ULTRASOUND ABDOMEN COMPLETE, ULTRASOUND DUPLEX DOPPLER HISTORY: Cirrhosis, sepsis COMPARISON: No comparison cross-sectional imaging of the abdomen TECHNIQUE: Real-time ultrasound of the abdomen was performed. Examination included spectral and color-flow Doppler evaluation of the liver and portal venous system. FINDINGS: Sonographic windows are limited by patient body habitus. The patient was also noncooperative, limiting the examination. The liver demonstrates mildly heterogeneous echogenicity which can be a sign of diffuse hepatic parenchymal disease such as cirrhosis.No mass lesions are identified. Hepatic length is 15.2 cm. Mild nonspecific gallbladder hydrops, with a transaxial diameter of 4.8 cm. No pericholecystic fluid. No gallbladder wall thickening. No gallstones are visualized. The common bile duct was not visualized. No intrahepatic bile duct dilatation is seen. The main portal vein is normal in diameter, measuring 11 mm. Mild splenomegaly, with a splenic length of 12.7 cm. The pancreas was suboptimally visualized. Minimal ascites is present. No pleural effusions are seen. The kidneys are normal in size, contour, and echogenicity. The right kidney measures 12.0 cm in length and the left kidney measures 11.5 cm in length. Doppler evaluation demonstrated hepatopetal flow throughout the portal venous system. Peak systolic velocity in the main portal vein was normal, measuring 21 cm/sec. Resistive indices in the proper hepatic artery was mildly elevated, measuring 0.8. The right and left hepatic arteries were suboptimally visualized. The left hepatic vein is patent. The right hepatic vein was suboptimally visualized. No abnormalities are visualized in the inferior vena cava or abdominal aorta. The distal abdominal aorta was obscured. IMPRESSION: 1. Heterogeneous hepatic echogenicity suggestive of diffuse hepatic parenchymal disease such as cirrhosis. No hepatic mass lesion was visualized. Mild splenomegaly. 2. No gallstones are visualized. 3. Patent portal venous system with normal flow direction. 4. Minimal ascites. Signed: Curtis Almanza MD Report Verified Date/Time:10/28/2018 07:19:25 Reading Location: [address] Transitional Reading Room Procedure Note Interface, External Ris In - 10/28/2018 7:21 AM CDT FINAL REPORT ULTRASOUND ABDOMEN COMPLETE, ULTRASOUND DUPLEX DOPPLER HISTORY: Cirrhosis, sepsis COMPARISON: No comparison cross-sectional imaging of the abdomen TECHNIQUE: Real-time ultrasound of the abdomen was performed. Examination included spectral and color-flow Doppler evaluation of the liver and portal venous system. FINDINGS: Sonographic windows are limited by patient body habitus. The patient was also noncooperative, limiting the examination. The liver demonstrates mildly heterogeneous echogenicity which can be a sign of diffuse hepatic parenchymal disease such as cirrhosis. No mass lesions are identified. Hepatic length is 15.2 cm. Mild nonspecific gallbladder hydrops, with a transaxial diameter of 4.8 cm. No pericholecystic fluid. No gallbladder wall thickening. No gallstones are visualized. The common bile duct was not visualized. No intrahepatic bile duct dilatation is seen. The main portal vein is normal in diameter, measuring 11 mm. Mild splenomegaly, with a splenic length of 12.7 cm. The pancreas was suboptimally visualized. Minimal ascites is present. No pleural effusions are seen. The kidneys are normal in size, contour, and echogenicity. The right kidney measures 12.0 cm in length and the left kidney measures 11.5 cm in length. Doppler evaluation demonstrated hepatopetal flow throughout the portal venous system. Peak systolic velocity in the main portal vein was normal, measuring 21 cm/sec. Resistive indices in the proper hepatic artery was mildly elevated, measuring 0.8. The right and left hepatic arteries were suboptimally visualized. The left hepatic vein is patent. The right hepatic vein was suboptimally visualized. No abnormalities are visualized in the inferior vena cava or abdominal aorta. The distal abdominal aorta was obscured. IMPRESSION: 1. Heterogeneous hepatic echogenicity suggestive of diffuse hepatic parenchymal disease such as cirrhosis. No hepatic mass lesion was visualized. Mild splenomegaly. 2. No gallstones are visualized. 3. Patent portal venous system with normal flow direction. 4. Minimal ascites. Signed: Curtis Almanza MD Report Verified Date/Time: 10/28/2018 07:19:25 Reading Location: [address] Transitional Reading Room Performing Organization Address City/State/Zipcode Phone Number [facility] Vitamin B12 and Folate (10/28/2018 4:57 AM CDT) Vitamin B12 719 213 - 816 pg/mL [facility] Folate 13.7 >=7.0 ng/mL [facility] Specimen Blood Performing Organization Address City/State/Zipcode Phone Number [place] [phone] [place] [address] CENTER Iron, TIBC, % sat. (without ferritin) (10/28/2018 4:57 AM CDT)Only the most recent of2 resultswithin the time period is included. Iron 104.0 40.0 - 160.0 ug/dL [facility] TIBC 119 (L) 250 - 450 ug/dL [facility] Iron % Saturation 87 (H) 20 - 55 % [facility] Specimen Blood Performing Organization Address [facility] Phone Number [facility] [address] [place] [address] [phone] [place] Troponin I (10/28/2018 4:57 AM CDT)Only the most recent of2 resultswithin the time period is included. Troponin I 0.03 0.00 - 0.03 ng/mL [facility] Specimen Blood Narrative Performed At Troponin I (TnI) levels must be interpreted [facility] in the context of the presenting symptoms and the clinical findings. Elevated TnI levels indicate myocardial damage, but are not specific for ischemic heart disease. Elevated TnI levels are seen in patients with other cardiac conditions (including myocarditis and congestive heart failure), and slight TnI elevations occur in patients with other conditions, including sepsis, renal failure, acidosis, acute neurological disease, and persistent tachyarrhythmia. Performing Organization Address [facility] Phone Number [facility] [address] [place] [address] [place] Rapid drug screen, urine (10/28/2018 4:57 AM CDT) Barbiturate Screen Negative Negative [facility] Benzodiazepine Screen Negative Negative [facility] Cocaine (Metab.) Screen Negative Negative [facility] Methadone Screen Negative Negative [facility] Opiate Screen Positive (A) Negative [facility] Cannabinoid Screen Negative Negative [facility] Amph/Methamph Screen Negative Negative [facility] Phencyclidine Screen Negative Negative [facility] Specimen Urine Narrative Performed At DRUGCUT[facility] CONC. Cocaine 300 ng/mL Uuyvaljkeeb19 ng/mL Zqfkqcyktynytu944 ng/mL Barbiturate 200 ng/mL Msfeirfqkhdpa05 ng/mL Zivmrp382 ng/mL Methadone 300 ng/mL Amphetamine/ 1000 ng/mL Methamphetamine Oxycodone 300 ng/mL This assay provides an unconfirmed qualitative test result for the clinical management of patients in emergency situations. Chain of custody not maintained. Some pami-goj-ofqkunh medications, as well as adulterants, may cause inaccurate results. Clinical correlation should be applied. A more comprehensive drug screen or confirmation of a detected drug may be performed upon request. Performing Organization Address City/[facility] Phone Number [facility] [address] [place] [address] [phone] CENTER ECG 12 lead (10/28/2018 3:46 AM CDT) Specimen Narrative Performed At Ventricular Rate 93 BPM GE [facility] Atrial Rate 93 BPM P-R Interval 154 ms QRS Duration 78 ms Q-T Interval 390 ms QTC Calculation(Bazett) 484 ms P Collins 56 degrees R Collins -14 degrees T Collins 35 degrees Sinus rhythm with Premature atrial complexes Nonspecific ST abnormality Prolonged QT Abnormal ECG No previous ECGs available Confirmed by MD HENDRIX YOCHAI ([id number]) on 10/31/2018 8:58:32 AM Procedure Note Interface, External Ris In - 10/31/2018 8:58 AM CDT Ventricular Rate 93 BPM Atrial Rate 93 BPM P-R Interval 154 ms QRS Duration 78 ms Q-T Interval 390 ms QTC Calculation(Bazett) 484 ms P Collins 56 degrees R Collins -14 degrees T Collins 35 degrees Sinus rhythm with Premature atrial complexes Nonspecific ST abnormality Prolonged QT Abnormal ECG No previous ECGs available Confirmed by MD HENDRIX YOCHAI ([id number]) on 10/31/2018 8:58:32 AM Performing Organization Address [facility] Phone Number [facility] XR abdomen / KUB 1 view (10/28/2018 1:28 AM CDT) Specimen Narrative Performed At FINAL REPORT [facility] RAD, ABDOMEN/KUB, 1 VIEW AP CLINICAL HISTORY: NG tube placement TECHNIQUE: RAD, ABDOMEN/KUB, 1 VIEW AP COMPARISON: None IMPRESSION: Nasogastric tube tip projects over the gastric body and the sidehole is distal to the GE junction, in satisfactory position. There is no evidence of free air or air-fluid levels. The bowel gas pattern is within normal limits. Signed: Efrain Day MD Report Verified Date/Time:10/28/2018 02:04:20 Procedure Note Interface, External Ris In - 10/28/2018 2:06 AM CDT FINAL REPORT RAD, ABDOMEN/KUB, 1 VIEW AP CLINICAL HISTORY: NG tube placement TECHNIQUE: RAD, ABDOMEN/KUB, 1 VIEW AP COMPARISON: None IMPRESSION: Nasogastric tube tip projects over the gastric body and the sidehole is distal to the GE junction, in satisfactory position. There is no evidence of free air or air-fluid levels. The bowel gas pattern is within normal limits. Signed: Efrain Day MD Report Verified Date/Time: 10/28/2018 02:04:20 Performing Organization Address City/State/Zipcode Phone Number [facility] Ammonia (10/28/2018 12:58 AM CDT) Ammonia 69 18 - 72 mol/L [facility] Specimen Blood Performing Organization Address City/[facility]/[place] [address] [phone] CENTER XR chest 1 view portable / bedside (10/28/2018 12:13 AM CDT) Specimen Narrative Performed At FINAL REPORT [facility] EXAMINATION: AP PORTABLE CHEST RADIOGRAPH CLINICAL INDICATION: Sepsis IMPRESSION: No comparison studies are available. Lung volumes are relatively low. Subtle streaky and reticular opacities are noted in both lungs, most conspicuous in the perihilar regions along the heart borders which may reflect associated atelectasis. An early pneumonia is difficult to exclude. No definite evidence of pulmonary edema, large pleural effusion or pneumothorax. Cardiac silhouette is mildly prominent but magnified by the AP portable technique. No evidence of an acute osseous abnormality. Signed: Alex Lynn MD Report Verified Date/Time:10/28/2018 00:52:42 Reading Location: [address] Reading Room Procedure Note Interface, External Ris In - 10/28/2018 12:54 AM CDT FINAL REPORT EXAMINATION: AP PORTABLE CHEST RADIOGRAPH CLINICAL INDICATION: Sepsis IMPRESSION: No comparison studies are available. Lung volumes are relatively low. Subtle streaky and reticular opacities are noted in both lungs, most conspicuous in the perihilar regions along the heart borders which may reflect associated atelectasis. An early pneumonia is difficult to exclude. No definite evidence of pulmonary edema, large pleural effusion or pneumothorax. Cardiac silhouette is mildly prominent but magnified by the AP portable technique. No evidence of an acute osseous abnormality. Signed: Alex Lynn MD Report Verified Date/Time: 10/28/2018 00:52:42 Reading Location: [address] Reading Room Performing Organization Address City/State/Zipcode Phone Number [facility] Urinalysis w/Microscopic + Reflex to Culture (10/28/2018 12:09 AM CDT) Color, UA Yellow [facility] Clarity, UA Clear [facility] Specific [place], UA 1.034 1.001 - 1.035 [facility] pH, UA 6.0 5.0 - 8.0 [facility] Protein, UA Negative Negative [facility] Glucose, UA Negative Negative [facility] Ketones, UA Negative Negative [facility] Bilirubin, UA Negative Negative [facility] Blood, UA Negative Negative [facility] Nitrite, UA Negative Negative [facility] Leukocytes, UA Negative Negative [facility] Urobilinogen, UA 2.0 (H) 0.2 - 1.0 mg/dL [facility] RBC, UA <1 /HPF [facility] WBC, UA <1 /HPF [facility] Squam Epithel, UA <1 /HPF [facility] Specimen Source [facility] Specimen Urine Performing Organization Address [facility] Phone Number [address] [address] [phone] [place] Blood Culture - Routine (Left Venipuncture) (10/28/2018 12:09 AM CDT)Only the most recent of2 resultswithin the time period is included. Result No growth in 5 days [facility] Specimen Blood Performing Organization Address [facility] Phone Number [address] [address] [place] Hepatitis A antibody, IgG (10/03/2018 1:54 PM CDT) Hep A IgG Reactive (A) Nonreactive [facility] Specimen Blood Performing Organization Address [facility] Phone Number [address] [address] [place] Mitochondrial Antibodies, M2 (10/03/2018 1:54 PM CDT) Mitochondria M2 Ab <20.0 See Note: U [facility] Comment: Reference Range: NEGATIVE:< OR=20.0 EQUIVOCAL: 20.1-24.9 POSITIVE:> OR=25.0 Specimen Blood Narrative Performed At Performing Lab [facility] [address] Harlan Salazar MD, PhD, SANDRA Performing Organization Address [facility] Phone Number [place] [address] [address] [place] [address] Hepatitis C antibody (10/03/2018 1:54 PM CDT) Hepatitis C Ab Reactive (A) Nonreactive [facility] Specimen Blood Performing Organization Address [facility] Phone Number [address] [address] [phone] [place] Actin (Smooth Muscle) Antibody, IgG (10/03/2018 1:54 [...] Lab [facility] [place] [address] [place] [address] Harlan Salazar MD, PhD, SANDRA Performing Organization Address City/[facility] Phone [place] [address] [place] [address] Fjenf-3-Dvnyxklvcmg (10/03/2018 1:54 PM CDT) A-1 Antitrypsin 159.30 90.00 - 200.00 mg/dL [facility] Specimen Blood Performing Organization Address [facility] Phone Number [address] [address] [phone] CENTER Hepatitis A antibody, IgM (10/03/2018 1:54 PM CDT) Hep A IgM Nonreactive Nonreactive [facility] Specimen Blood Performing Organization Address City/[facility] Phone Number [address] [address] CENTER NILS Titer & Pattern (10/03/2018 1:54 PM CDT) NILS Titer 1:160 [facility] NILS Pattern Speckled [facility] Specimen Blood Performing Organization Address [facility] Phone Number [address] [address] CENTER Ceruloplasmin (10/03/2018 1:54 PM CDT) Scan Result [facility] Ceruloplasmin 26 18 - 36 mg/dL [facility] Comment: Adults:Males: 18-36 mg/dL Females: 18-53 mg/dL Pediatrics:Males (mg/dL)Females (mg/dL) 0-30 Days 8-25 3-28 31 Days-11 Month 15-43 1-3 [id number] 4-6 [id number] 7-9 [id number] 10-12 [id number] 13-15 [id number] 16-18 [id number] The pediatric ranges are derived from the following criteria: Amalia VALDES, Adelia WICK, Elba J et al Pediatric reference ranges for Ihub-9-Gjmogumyeoysr and ceruloplasmin. Clin. Chem 1997; 43:S1999 Pediatric Reference Ranges, 2nd., [place] Amaliaet al. editors. [employer], [place], [place] 1997. Specimen Blood Narrative Performed At Performing Lab [facility] *[facility], [address] [place] [id number] Heather Real MD, PhD Performing Organization Address City/[facility] Phone Number [employer] [facility] [place] [address] [facility]ORPOR[facility] [address] [facility] Alpha fetoprotein (AFP), tumor marker (10/03/2018 1:54 PM CDT) Alpha-Fetoprotein 3.5 <10.0 ng/mL [facility] Specimen Blood Performing Organization Address City/State/Zipcode Phone Number [address] [address] [place] Hepatitis B core antibody, total (10/03/2018 1:54 PM CDT) Hep B Core Total Ab Nonreactive Nonreactive [facility] Specimen Blood Performing Organization Address City/[facility]/Zipcode Phone Number [place] [phone] [place] [address] [place] Hepatitis B surface antibody (10/03/2018 1:54 PM CDT) Hep B S Ab <8.0 <8.0 mIU/mL [facility] Specimen Blood Performing Organization Address City/State/Zipcode Phone Number [address] [address] [phone] [place] Hepatitis B surface antigen (10/03/2018 1:54 PM CDT) hepatitis B Surface Ag Nonreactive Nonreactive [facility] Specimen Blood Performing Organization Address City/[facility]/Zipcode Phone Number [address] [address] [phone] [place] Anti-Nuclear Antibody (NILS) (10/03/2018 1:54 PM CDT) NILS Positive (A) Negative [facility] Specimen Blood Narrative Performed At Test performed by IFA method. [facility] Performing Organization Address City/State/[facility] Phone Number [address] [address] [place] Ferritin (10/03/2018 1:54 PM CDT) Ferritin 218 5 - 275 ng/mL [facility] Specimen Blood Performing Organization Address City/[facility]/Zipcode Phone Number [address] [address] [place] Bilirubin, direct (10/03/2018 1:54 PM CDT) Bilirubin, Direct 1.4 (H) 0.1 - 0.5 mg/dL [facility] Specimen Blood Performing Organization Address City/[facility] Phone Number [address] [address] CENTER after 12/10/2017 Insurance Payer Benefit Plan / Group Subscriber ID Type Phone Address MEDICARE MEDICARE A B xxxxxxxxxxx Medicare Advance Directives For more information, please contact:[place] [address] [place] Davis[place], [place] [phone] Code Status Date Activated Date Inactivated Comments Full Code 10/27/2018 11:47 PM 10/31/2018 4:20 PM This code status was determined by: Patient
--- OUTSIDE RECORDS SUMMARY | 2018-12-11 06:43 | XMS REPORT ---
:1955 Author Organization [facility] Address [address] [place] [address] [address]. [address] [place] [address] Care Team Providers Name Role Phone BENNIE VILLEGAS Unavailable Unavailable SHI LI Unavailable Unavailable Problems This patient has no known problems. Allergies, Adverse Reactions, Alerts This patient has no known allergies or adverse reactions. Medications This patient has no known medications. Results Test Description Test Time Test Comments Text Results Atomic Results Result Comments ETHANOL 2018-12-06 11:12:00 Test Item Value Reference Range Comments ETHANOL (BEAKER) (test psas=343) < mg/dL <=10 BASIC METABOLIC [id number] 10:56:00 Test Item Value Reference Range Comments SODIUM (BEAKER) (test 135 meq/L 136-145 ouxs=269) POTASSIUM (BEAKER) (test 3.8 meq/L 3.5-5.1 yezl=054) CHLORIDE (BEAKER) (test 102 meq/L 98-107 himp=902) CO2 (BEAKER) (test 28 meq/L 22-29 wpuy=012) BLOOD UREA NITROGEN 5 mg/dL 7-21 (BEAKER) (test yirr=080) CREATININE (BEAKER) (test 0.80 mg/dL 0.57-1.25 kccq=240) GLUCOSE RANDOM (BEAKER) 237 mg/dL 70-105 (test xawa=316) CALCIUM (BEAKER) (test 8.3 mg/dL 8.4-10.2 zvmv=204) EGFR (BEAKER) (test 98 mL/min/1.73 sq m ESTIMATED GFR IS NOT vkrv=2024) ACCURATE CREATININE CLEARANCE IN PREDICTING GLOMERULAR FILTRATION RATE. ESTIMATED GFR IS NOT APPLICABLE FOR DIALYSIS PATIENTS. Specimen moderately ictericHEPATIC FUNCTION [id number] 10:56:00 Test Item Value Reference Range Comments TOTAL PROTEIN (BEAKER) (test yhet=003) 7.0 gm/dL 6.0-8.3 ALBUMIN (BEAKER) (test cybp=4294) 2.7 g/dL 3.5-5.0 BILIRUBIN TOTAL (BEAKER) (test idcp=871) 3.8 mg/dL 0.2-1.2 BILIRUBIN DIRECT (BEAKER) (test xmnx=759) 1.3 mg/dL 0.1-0.5 ALKALINE PHOSPHATASE (BEAKER) (test tovj=432) 186 U/L 40-150 AST (SGOT) (BEAKER) (test ubuu=972) 43 U/L 5-34 ALT (SGPT) (BEAKER) (test ncbs=340) 27 U/L 6-55 Specimen moderately ictericPROTHROMBIN [id number] 10:40:00 Test Item Value Reference Range Comments PROTIME (BEAKER) (test gyes=812) 18.4 seconds 11.9-14.2 INR (BEAKER) (test aiii=309) 1.6 <=5.9 Effective 10/24/2018: PT Reference Range ChangeNew: 11.9-14.2 Previous: 11.7- 14.7RECOMMENDED COUMADIN/WARFARIN INR THERAPY RANGESSTANDARD DOSE: 2.0-3.0 Includes: PROPHYLAXIS for venous thrombosis, systemic embolization; TREATMENT for venous thrombosis and/or pulmonary embolus.HIGH RISK: Target INR is2.5-3.5 for patients wiht mechanical heart valves.CBC W/PLT COUNT & AUTO [id number] 10:38:00 Test Item Value Reference Range Comments WHITE BLOOD CELL COUNT (BEAKER) (test xvqy=315) 5.1 K/ L 3.5-10.5 RED BLOOD CELL COUNT (BEAKER) (test zuxg=370) 3.19 M/ L 4.63-6.08 HEMOGLOBIN (BEAKER) (test wmir=037) 10.5 GM/DL 13.7-17.5 HEMATOCRIT (BEAKER) (test ynlw=184) 32.6 % 40.1-51.0 MEAN CORPUSCULAR VOLUME (BEAKER) (test xvol=508) 102.2 fL 79.0-92.2 MEAN CORPUSCULAR HEMOGLOBIN (BEAKER) (test 32.9 pg 25.7-32.2 qzuk=372) MEAN CORPUSCULAR HEMOGLOBIN CONC (BEAKER) (test 32.2 GM/DL 32.3-36.5 uwgd=506) RED CELL DISTRIBUTION WIDTH (BEAKER) (test 14.5 % 11.6-14.4 nekn=348) PLATELET COUNT (BEAKER) (test duad=888) 59 K/CU MM 150-450 MEAN PLATELET VOLUME (BEAKER) (test ggdf=992) 10.9 fL 9.4-12.4 NUCLEATED RED BLOOD CELLS (BEAKER) (test 0 /100 WBC 0-0 mjib=452) NEUTROPHILS RELATIVE PERCENT (BEAKER) (test 44 % hvkz=836) LYMPHOCYTES RELATIVE PERCENT (BEAKER) (test 39 % rqvb=665) MONOCYTES RELATIVE PERCENT (BEAKER) (test 11 % foaa=910) EOSINOPHILS RELATIVE PERCENT (BEAKER) (test 5 % dhkd=598) BASOPHILS RELATIVE PERCENT (BEAKER) (test 1 % chry=332) NEUTROPHILS ABSOLUTE COUNT (BEAKER) (test 2.26 K/ L 1.78-5.38 gzqz=853) LYMPHOCYTES ABSOLUTE COUNT (BEAKER) (test 1.99 K/ L 1.32-3.57 pivk=561) MONOCYTES ABSOLUTE COUNT (BEAKER) (test wvcl=511) 0.55 K/ L 0.30-0.82 EOSINOPHILS ABSOLUTE COUNT (BEAKER) (test 0.24 K/ L 0.04-0.54 dcon=419) BASOPHILS ABSOLUTE COUNT (BEAKER) (test dqur=652) 0.05 K/ L 0.01-0.08 IMMATURE GRANULOCYTES-RELATIVE PERCENT (BEAKER) 0 % 0-1 (test klqy=5387) BLOOD [id number] 08:00:00 Test Item Value Reference Range Comments CULTURE (BEAKER) (test hhnm=5668) No growth in 5 days BLOOD [id number] 08:00:00 Test Item Value Reference Range Comments CULTURE (BEAKER) (test qznc=7489) No growth in 5 days BODY FLUID CULTURE + GRAM [id number] 12:20:00 Test Item Value Reference Range Comments CULTURE (BEAKER) (test midl=3675) No growth GRAM STAIN RESULT (BEAKER) (test 1+ WBCs tdsj=1078) GRAM STAIN RESULT (BEAKER) (test No organisms seen zcei=77012) HEPATITIS C PCR, [id number] 08:32:00 Test Item Value Reference Range Comments HCV RESULT COMPONENT (BEAKER) HCV RNA not detected HCV RNA not detected (test fprk=3041) This test uses a Real-Time Polymerase Chain Reaction (RT-PCR) methodology and was performed using [employer] Ampliprep/KHOA TaqMan HCV test kit version 2.0 ( [employer]).Reportable range for this assay is 15 - 100,000, 000 IU per mL (1.18 - 8.00 Log IU/mL).POCT-GLUCOSE [id number] 08:09:00 Test Item Value Reference Range Comments POC-GLUCOSE METER (BEAKER) 117 mg/dL 70-[address] [facility] [address] [facility] (test newx=6785) [facility] [address] CALCIUM, [id number] 05:54:00 Test Item Value Reference Range Comments CALCIUM IONIZED (BEAKER) (test gamj=630) 1.01 mmol/L 1.12-1.27 PH, BLOOD (BEAKER) (test gqfc=4219) 7.45 COMPREHENSIVE METABOLIC [id number] 05:07:00 Test Item Value Reference Range Comments TOTAL PROTEIN (BEAKER) 5.4 gm/dL 6.0-8.3 (test opua=508) ALBUMIN (BEAKER) (test 2.5 g/dL 3.5-5.0 cdgs=5193) ALKALINE PHOSPHATASE 100 U/L 40-150 (BEAKER) (test tmsd=125) BILIRUBIN TOTAL (BEAKER) 3.0 mg/dL 0.2-1.2 (test khca=653) SODIUM (BEAKER) (test 137 meq/L 136-145 filv=178) POTASSIUM (BEAKER) (test 3.8 meq/L 3.5-5.1 uoco=305) CHLORIDE (BEAKER) (test 110 meq/L 98-107 giwj=224) CO2 (BEAKER) (test 24 meq/L 22-29 seih=830) BLOOD UREA NITROGEN 6 mg/dL 7-21 (BEAKER) (test amns=613) CREATININE (BEAKER) (test 0.66 mg/dL 0.57-1.25 txaj=265) GLUCOSE RANDOM (BEAKER) 100 mg/dL 70-105 (test luag=132) CALCIUM (BEAKER) (test 7.7 mg/dL 8.4-10.2 dnlp=761) AST (SGOT) (BEAKER) (test 65 U/L 5-34 ccsz=570) ALT (SGPT) (BEAKER) (test 31 U/L 6-55 zmuv=288) EGFR (BEAKER) (test 123 mL/min/1.73 sq ESTIMATED GFR IS NOT ltxr=9571) m ACCURATE CREATININE CLEARANCE IN PREDICTING GLOMERULAR FILTRATION RATE. ESTIMATED GFR IS NOT APPLICABLE FOR DIALYSIS PATIENTS. Specimen slightly [id number] 05:06:00 Test Item Value Reference Range Comments PHOSPHORUS (BEAKER) (test xgvy=937) 3.3 mg/dL 2.3-4.7 [id number] 05:06:00 Test Item Value Reference Range Comments MAGNESIUM (BEAKER) (test iorl=215) 1.5 mg/dL 1.6-2.6 CBC W/PLT COUNT & AUTO [id number] 04:43:00 Test Item Value Reference Range Comments WHITE BLOOD CELL COUNT (BEAKER) (test rooj=504) 5.8 K/ L 3.5-10.5 RED BLOOD CELL COUNT (BEAKER) (test ipsv=950) 2.70 M/ L 4.63-6.08 HEMOGLOBIN (BEAKER) (test yjde=715) 9.0 GM/DL 13.7-17.5 HEMATOCRIT (BEAKER) (test kdlo=689) 27.8 % 40.1-51.0 MEAN CORPUSCULAR VOLUME (BEAKER) (test liwe=886) 103.0 fL 79.0-92.2 MEAN CORPUSCULAR HEMOGLOBIN (BEAKER) (test 33.3 pg 25.7-32.2 bbkn=231) MEAN CORPUSCULAR HEMOGLOBIN CONC (BEAKER) (test 32.4 GM/DL 32.3-36.5 tdvf=338) RED CELL DISTRIBUTION WIDTH (BEAKER) (test 14.2 % 11.6-14.4 foee=531) PLATELET COUNT (BEAKER) (test reks=590) 45 K/CU MM 150-450 MEAN PLATELET VOLUME (BEAKER) (test qxxv=157) 10.1 fL 9.4-12.4 NUCLEATED RED BLOOD CELLS (BEAKER) (test 0 /100 WBC 0-0 fwfr=865) NEUTROPHILS RELATIVE PERCENT (BEAKER) (test 47 % phrt=458) LYMPHOCYTES RELATIVE PERCENT (BEAKER) (test 35 % proe=530) MONOCYTES RELATIVE PERCENT (BEAKER) (test 12 % njqj=984) EOSINOPHILS RELATIVE PERCENT (BEAKER) (test 4 % naea=737) BASOPHILS RELATIVE PERCENT (BEAKER) (test 1 % gfri=506) NEUTROPHILS ABSOLUTE COUNT (BEAKER) (test 2.68 K/ L 1.78-5.38 skal=054) LYMPHOCYTES ABSOLUTE COUNT (BEAKER) (test 2.03 K/ L 1.32-3.57 qlcj=000) MONOCYTES ABSOLUTE COUNT (BEAKER) (test meif=049) 0.71 K/ L 0.30-0.82 EOSINOPHILS ABSOLUTE COUNT (BEAKER) (test 0.23 K/ L 0.04-0.54 blvn=298) BASOPHILS ABSOLUTE COUNT (BEAKER) (test rgql=952) 0.03 K/ L 0.01-0.08 IMMATURE GRANULOCYTES-RELATIVE PERCENT (BEAKER) 1 % 0-1 (test mkwf=1662) POCT-GLUCOSE [id number] 21:35:00 Test Item Value Reference Range Comments POC-GLUCOSE METER (BEAKER) 154 mg/dL 70-110 TESTED AT [address] (test ejzj=8896) [place] [address] POCT-GLUCOSE [id number] 17:21:00 Test Item Value Reference Range Comments POC-GLUCOSE METER (BEAKER) 138 mg/dL 70-110 TESTED AT [address] (test lcxo=3573) [place] [address] POCT-GLUCOSE [id number] 13:27:00 Test Item Value Reference Range Comments POC-GLUCOSE METER (BEAKER) 166 mg/dL 70-110 TESTED AT [address] (test maml=4098) [place] [id number] CBC W/PLT COUNT & AUTO [id number] 12:00:00 Test Item Value Reference Range Comments WHITE BLOOD CELL COUNT (BEAKER) (test cyxd=870) 6.0 K/ L 3.5-10.5 RED BLOOD CELL COUNT (BEAKER) (test yhep=195) 2.79 M/ L 4.63-6.08 HEMOGLOBIN (BEAKER) (test vzal=133) 9.4 GM/DL 13.7-17.5 HEMATOCRIT (BEAKER) (test ajad=942) 28.2 % 40.1-51.0 MEAN CORPUSCULAR VOLUME (BEAKER) (test pjli=239) 101.1 fL 79.0-92.2 MEAN CORPUSCULAR HEMOGLOBIN (BEAKER) (test 33.7 pg 25.7-32.2 pxkd=272) MEAN CORPUSCULAR HEMOGLOBIN CONC (BEAKER) (test 33.3 GM/DL 32.3-36.5 txvm=566) RED CELL DISTRIBUTION WIDTH (BEAKER) (test 14.2 % 11.6-14.4 wevk=190) PLATELET COUNT (BEAKER) (test tgrx=253) 47 K/CU MM 150-450 MEAN PLATELET VOLUME (BEAKER) (test yujz=021) 9.9 fL 9.4-12.4 NUCLEATED RED BLOOD CELLS (BEAKER) (test 0 /100 WBC 0-0 aqdr=403) (CELLAVISION MANUAL DIFF)2018-10-30 12:00:00 Test Item Value Reference Range Comments NEUTROPHILS - REL (CELLAVISION)(BEAKER) (test 64 % mzka=2415) LYMPHOCYTES - REL (CELLAVISION)(BEAKER) (test 28 % mban=3344) MONOCYTES - REL (CELLAVISION)(BEAKER) (test 5 % benq=6409) EOSINOPHILS - REL (CELLAVISION)(BEAKER) (test 3 % cjag=2422) NEUTROPHILS - ABS (CELLAVISION)(BEAKER) (test 3.84 K/ul 1.78-5.38 yqly=9061) LYMPHOCYTES - ABS (CELLAVISION)(BEAKER) (test 1.68 K/ul 1.32-3.57 dygn=5051) MONOCYTES - ABS (CELLAVISION)(BEAKER) (test 0.30 K/uL 0.30-0.82 jjbg=6339) EOSINOPHILS - ABS (CELLAVISION)(BEAKER) (test 0.18 K/uL 0.04-0.54 gvoz=3591) TOTAL COUNTED (BEAKER) (test emrs=5030) 100 WBC MORPHOLOGY (BEAKER) (test llci=324) Normal PLT MORPHOLOGY (BEAKER) (test mtxo=499) Normal ANISOCYTOSIS (BEAKER) (test syov=368) 1+ few MACROCYTES (BEAKER) (test yivk=156) 1+ few ARTIFACT (CELLAVISION)(BEAKER) (test qqbt=0994) Present PLATELET CONCENTRATION (CELLAVISION)(BEAKER) (test Decreased iwxj=8132) Received comment: User comments: Slide comments:POCT-GLUCOSE [id number] 11: 52:00 Test Item Value Reference Range Comments POC-GLUCOSE METER (BEAKER) 180 mg/dL 70-[address] [facility] [address] [facility] (test irxm=7094) [facility] [address] POCT-GLUCOSE [id number] 08:09:00 Test Item Value Reference Range Comments POC-GLUCOSE METER (BEAKER) 115 mg/dL 70-110 TESTED AT [place] [id number] [facility] (test ukmr=8718) [facility] [address] COMPREHENSIVE METABOLIC [id number] 05:59:00 Test Item Value Reference Range Comments TOTAL PROTEIN (BEAKER) 5.4 gm/dL 6.0-8.3 (test phxp=528) ALBUMIN (BEAKER) (test 2.6 g/dL 3.5-5.0 ofzs=7176) ALKALINE PHOSPHATASE 79 U/L 40-150 (BEAKER) (test nxjr=616) BILIRUBIN TOTAL (BEAKER) 3.1 mg/dL 0.2-1.2 (test zerr=201) SODIUM (BEAKER) (test 137 meq/L 136-145 acfp=522) POTASSIUM (BEAKER) (test 3.7 meq/L 3.5-5.1 yknl=574) CHLORIDE (BEAKER) (test 109 meq/L 98-107 vmlx=496) CO2 (BEAKER) (test 23 meq/L 22-29 nuby=435) BLOOD UREA NITROGEN 7 mg/dL 7-21 (BEAKER) (test kzmu=803) CREATININE (BEAKER) (test 0.68 mg/dL 0.57-1.25 tfun=397) GLUCOSE RANDOM (BEAKER) 130 mg/dL 70-105 (test nrol=941) CALCIUM (BEAKER) (test 7.6 mg/dL 8.4-10.2 lvji=756) AST (SGOT) (BEAKER) (test 74 U/L 5-34 bbne=222) ALT (SGPT) (BEAKER) (test 32 U/L 6-55 egsz=927) EGFR (BEAKER) (test 119 mL/min/1.73 sq ESTIMATED GFR IS NOT ujcm=5905) m ACCURATE CREATININE CLEARANCE IN PREDICTING GLOMERULAR FILTRATION RATE. ESTIMATED GFR IS NOT APPLICABLE FOR DIALYSIS PATIENTS. Specimen slightly [id number] 05:57:00 Test Item Value Reference Range Comments MAGNESIUM (BEAKER) (test krzf=023) 1.6 mg/dL 1.6-2.6 POCT-GLUCOSE [id number] 22:30:00 Test Item Value Reference Range Comments POC-GLUCOSE METER (BEAKER) 186 mg/dL 70-[address] [facility] [address] [place] [address] (test qvii=6368) [place] [address] POCT-GLUCOSE [id number] 18:33:00 Test Item Value Reference Range Comments POC-GLUCOSE METER (BEAKER) 117 mg/dL 70-110 TESTED AT [address] (test cweb=5340) [place] [id number] U/S, [id number] 17:34:00REFERRING MD: CHERELLE SALVADOR Please give 25g albumin if over 3L removed, 50g if over 5L removedReason for exam:-> ascites, encephalopathy, r/o SBPFINAL REPORT PROCEDURE: Ultrasound-guided paracentesis. Operators: This procedure was performed by DARYL Charles under my direct supervision. INDICATION: Ascites. DESCRIPTION : After obtaining informed written consent, ultrasound scan of the abdomen identified ascites in theright mid quadrant. The overlying skin was prepped and draped in the usual, sterile fashion and local 2% lidocaine anesthesia was administered. A 5 Bel[place]ian catheter was advanced into the peritoneal cavity and 1300 cc of addison fluid was removed. The catheter was removed without immediate complication. Samples left with interstitial sent to the lab for analysis. IMPRESSION:Uncomplicated ultrasound-guided paracentesis with 1300 cc fluid removed. Signed: Mauricio Cullen MDReport Verified Date/Time: 10/29/2018 17:34: 00 Reading Location: [facility] P006J Ultrasound Reading Room VANCOMYCIN LEVEL, [id number] 17:22:00 Test Item Value Reference Range Comments VANCOMYCIN TROUGH (BEAKER) (test wwau=141) 7.3 ug/mL 10.0-20.0 CBC W/PLT COUNT & AUTO [id number] 15:00:00 Test Item Value Reference Range Comments WHITE BLOOD CELL COUNT (BEAKER) (test tofy=878) 7.2 K/ L 3.5-10.5 RED BLOOD CELL COUNT (BEAKER) (test rxdm=575) 2.76 M/ L 4.63-6.08 HEMOGLOBIN (BEAKER) (test anih=814) 9.2 GM/DL 13.7-17.5 HEMATOCRIT (BEAKER) (test ixbw=425) 28.9 % 40.1-51.0 MEAN CORPUSCULAR VOLUME (BEAKER) (test mulm=201) 104.7 fL 79.0-92.2 MEAN CORPUSCULAR HEMOGLOBIN (BEAKER) (test 33.3 pg 25.7-32.2 mnfs=650) MEAN CORPUSCULAR HEMOGLOBIN CONC (BEAKER) (test 31.8 GM/DL 32.3-36.5 gtry=094) RED CELL DISTRIBUTION WIDTH (BEAKER) (test 14.6 % 11.6-14.4 mydl=917) PLATELET COUNT (BEAKER) (test lfbn=683) 44 K/CU MM 150-450 MEAN PLATELET VOLUME (BEAKER) (test lvcp=167) 10.2 fL 9.4-12.4 NUCLEATED RED BLOOD CELLS (BEAKER) (test 0 /100 WBC 0-0 tboq=529) NEUTROPHILS RELATIVE PERCENT (BEAKER) (test 53 % ijgf=495) LYMPHOCYTES RELATIVE PERCENT (BEAKER) (test 31 % saxq=520) MONOCYTES RELATIVE PERCENT (BEAKER) (test 12 % uavp=467) EOSINOPHILS RELATIVE PERCENT (BEAKER) (test 3 % qmii=202) BASOPHILS RELATIVE PERCENT (BEAKER) (test 1 % roph=184) NEUTROPHILS ABSOLUTE COUNT (BEAKER) (test 3.83 K/ L 1.78-5.38 lygu=791) LYMPHOCYTES ABSOLUTE COUNT (BEAKER) (test 2.20 K/ L 1.32-3.57 wuex=297) MONOCYTES ABSOLUTE COUNT (BEAKER) (test slcq=973) 0.83 K/ L 0.30-0.82 EOSINOPHILS ABSOLUTE COUNT (BEAKER) (test 0.24 K/ L 0.04-0.54 sqwe=409) BASOPHILS ABSOLUTE COUNT (BEAKER) (test nevp=242) 0.04 K/ L 0.01-0.08 IMMATURE GRANULOCYTES-RELATIVE PERCENT (BEAKER) 1 % 0-1 (test yvix=6542) BODY FLUID CELL COUNT WITH [id number] 13:45:00 Test Item Value Reference Range Comments APPEARANCE FLUID (BEAKER) (test moig=154) Hazy Clear COLOR FLUID (BEAKER) (test jncn=760) Yellow Colorless, Straw RBC FLUID (BEAKER) (test mgns=076) 6000 /cu mm <=1 ADJUSTED WBC FLUID (BEAKER) (test fysj=8076) 252 /cu mm <=5 LINING CELLS (BEAKER) (test dxch=3728) 28 /cu mm <=1 NEUTROPHILS FLUID (BEAKER) (test iukh=9909) 36 % LYMPHS FLUID (BEAKER) (test xchm=463) 22 % MONO/MACROPHAGE FLUID (BEAKER) (test kfyc=703) 42 % EOSINOPHILS FLUID (BEAKER) (test xmjv=902) 0 % BASO FLUID (BEAKER) (test aqhp=775) 0 % CONTAINER BODY FLUID (BEAKER) (test ubgr=1069) EDTA Tube RESPIRATORY PANEL [id number] 12:27:00 Test Item Value Reference Range Comments HUMAN METAPNEUMOVIRUS (BEAKER) (test Not detected Not detected, Equivocal qzye=6610) RHINOVIRUS (BEAKER) (test wsim=4572) Not detected Not detected, Equivocal INFLUENZA A (BEAKER) (test abdj=7656) Not detected Not detected, Equivocal INFLUENZA A (NO SUBTYPE) (test Not detected, Equivocal oeet=0164) INFLUENZA A SUBTYPE H1 (BEAKER) (test Not detected, Equivocal iqjq=2666) INFLUENZA A SUBTYPE H3 (BEAKER) (test Not detected, Equivocal tzpl=8405) INFLUENZA A SUBTYPE H1-2009 (BEAKER) Not detected, Equivocal (test axrl=3583) INFLUENZA B (BEAKER) (test exzq=8683) Not detected Not detected, Equivocal RESPIRATORY SYNCYTIAL VIRUS (BEAKER) Not detected Not detected, Equivocal (test wstw=3107) PARAINFLUENZA VIRUS 1 (BEAKER) (test Not detected Not detected, Equivocal kfkh=7883) PARAINFLUENZA VIRUS 2 (BEAKER) (test Not detected Not detected, Equivocal xpxe=6156) PARAINFLUENZA VIRUS 3 (BEAKER) (test Not detected Not detected, Equivocal jcco=9528) PARAINFLUENZA VIRUS 4 (BEAKER) (test Not detected Not detected, Equivocal iphk=9761) ADENOVIRUS (BEAKER) (test odsf=3769) Not detected Not detected, Equivocal CORONAVIRUS 229E (BEAKER) (test Not detected Not detected, Equivocal cdrq=9649) CORONAVIRUS HKU1 (BEAKER) (test Not detected Not detected, Equivocal pukx=0027) CORONAVIRUS NL63 (BEAKER) (test Not detected Not detected, Equivocal tpgd=2956) CORONAVIRUS OC43 (BEAKER) (test Not detected Not detected, Equivocal pqas=2671) BORDETELLA PERTUSSIS (BEAKER) (test Not detected Not detected, Equivocal pvyr=9528) CHLAMYDOPHILA PNEUMONIAE (BEAKER) (test Not detected Not detected, Equivocal odlb=0776) MYCOPLASMA PNEUMONIAE (BEAKER) (test Not detected Not detected, Equivocal zagl=0044) Other viruses and bacteria not targeted by this PCR panel cannot be excluded; therefore clinical correlation and follow up of serology, culture results, and other molecular studies is required. The results are not intended to be used as the sole means for clinical diagnosis or patient management decisions. This sample was tested at the [facility] Molecular Diagnostics Laboratory using the [employer] Respiratory Panel. It is FDA cleared and has been verified and approved by the [facility]ostics [facility] for clinical use on nasopharyngeal swab specimens.The performance of the FilmArrayRP has not been established in individuals who received influenza vaccine. Recent administration ofa nasal influenza vaccine may cause false positive results for Influenza A and/orInfluenza B.POCT-GLUCOSE [id number] 12:16:00 Test Item Value Reference Range Comments POC-GLUCOSE METER (BEAKER) 196 mg/dL 70-[address] [facility] [address] (test cfck=0788) [facility] [address] RESPIRATORY PANEL [id number] 10:59:00 Test Item Value Reference Range Comments HUMAN METAPNEUMOVIRUS (BEAKER) (test Not detected Not detected, Equivocal gkzo=3521) RHINOVIRUS (BEAKER) (test jtct=8589) Not detected Not detected, Equivocal INFLUENZA A (BEAKER) (test kdni=3295) Not detected Not detected, Equivocal INFLUENZA A (NO SUBTYPE) (test Not detected, Equivocal xzjc=5194) INFLUENZA A SUBTYPE H1 (BEAKER) (test Not detected, Equivocal vkqx=0798) INFLUENZA A SUBTYPE H3 (BEAKER) (test Not detected, Equivocal jcel=9431) INFLUENZA A SUBTYPE H1-2009 (BEAKER) Not detected, Equivocal (test ahsh=5301) INFLUENZA B (BEAKER) (test exce=7443) Not detected Not detected, Equivocal RESPIRATORY SYNCYTIAL VIRUS (BEAKER) Not detected Not detected, Equivocal (test flud=0296) PARAINFLUENZA VIRUS 1 (BEAKER) (test Not detected Not detected, Equivocal iaxm=5236) PARAINFLUENZA VIRUS 2 (BEAKER) (test Not detected Not detected, Equivocal ania=0293) PARAINFLUENZA VIRUS 3 (BEAKER) (test Not detected Not detected, Equivocal tyvj=9037) PARAINFLUENZA VIRUS 4 (BEAKER) (test Not detected Not detected, Equivocal lfcx=7188) ADENOVIRUS (BEAKER) (test ngge=4993) Not detected Not detected, Equivocal CORONAVIRUS 229E (BEAKER) (test Not detected Not detected, Equivocal bvhc=0420) CORONAVIRUS HKU1 (BEAKER) (test Not detected Not detected, Equivocal kvsp=1270) CORONAVIRUS NL63 (BEAKER) (test Not detected Not detected, Equivocal orkb=7310) CORONAVIRUS OC43 (BEAKER) (test Not detected Not detected, Equivocal chgv=1001) BORDETELLA PERTUSSIS (BEAKER) (test Not detected Not detected, Equivocal jmpg=4595) CHLAMYDOPHILA PNEUMONIAE (BEAKER) (test Not detected Not detected, Equivocal vepa=8520) MYCOPLASMA PNEUMONIAE (BEAKER) (test Not detected Not detected, Equivocal zlpy=7513) Other viruses and bacteria not targeted by this PCR panel cannot be excluded; therefore clinical correlation and follow up of serology, culture results, and other molecular studies is required. The results are not intended to be used as the sole means for clinical diagnosis or patient management decisions. This sample was tested at the [facility] using the [employer] RideArray Respiratory Panel. It is FDA cleared and has been verified and approved by the [facility] for clinical use on nasopharyngeal swab specimens.The performance of the FilmArrayRP has not been established in individuals who received influenza vaccine. Recent administration ofa nasal influenza vaccine may cause false positive results for Influenza A and/orInfluenza B.POCT-GLUCOSE [id number] 08:15:00 Test Item Value Reference Range Comments POC-GLUCOSE METER (BEAKER) 184 mg/dL 70-[address] [facility] [address] (test sume=7595) [facility] [address] CBC W/PLT COUNT & AUTO [id number] 07:49:00 Test Item Value Reference Range Comments WHITE BLOOD CELL COUNT (BEAKER) (test ojga=711) 7.2 K/ L 3.5-10.5 RED BLOOD CELL COUNT (BEAKER) (test idre=146) 2.66 M/ L 4.63-6.08 HEMOGLOBIN (BEAKER) (test tbgd=251) 8.9 GM/DL 13.7-17.5 HEMATOCRIT (BEAKER) (test bfso=804) 27.2 % 40.1-51.0 MEAN CORPUSCULAR VOLUME (BEAKER) (test kqnm=309) 102.3 fL 79.0-92.2 MEAN CORPUSCULAR HEMOGLOBIN (BEAKER) (test 33.5 pg 25.7-32.2 ibdm=874) MEAN CORPUSCULAR HEMOGLOBIN CONC (BEAKER) (test 32.7 GM/DL 32.3-36.5 yunw=284) RED CELL DISTRIBUTION WIDTH (BEAKER) (test 14.5 % 11.6-14.4 abtm=426) PLATELET COUNT (BEAKER) (test gtqf=212) 45 K/CU MM 150-450 MEAN PLATELET VOLUME (BEAKER) (test wclj=103) 10.0 fL 9.4-12.4 NUCLEATED RED BLOOD CELLS (BEAKER) (test 0 /100 WBC 0-0 chyh=569) (CELLAVISION MANUAL DIFF)2018-10-29 07:49:00 Test Item Value Reference Range Comments NEUTROPHILS - REL (CELLAVISION)(BEAKER) (test 78 % kzrj=3171) LYMPHOCYTES - REL (CELLAVISION)(BEAKER) (test 16 % qpcw=9317) MONOCYTES - REL (CELLAVISION)(BEAKER) (test 3 % bqvd=1488) EOSINOPHILS - REL (CELLAVISION)(BEAKER) (test 2 % dypv=4974) BASOPHILS - REL (CELLAVISION)(BEAKER) (test 1 % dtjr=5250) NEUTROPHILS - ABS (CELLAVISION)(BEAKER) (test 5.62 K/ul 1.78-5.38 rsmj=0653) LYMPHOCYTES - ABS (CELLAVISION)(BEAKER) (test 1.15 K/ul 1.32-3.57 jopc=0058) MONOCYTES - ABS (CELLAVISION)(BEAKER) (test 0.22 K/uL 0.30-0.82 rpff=1513) EOSINOPHILS - ABS (CELLAVISION)(BEAKER) (test 0.14 K/uL 0.04-0.54 zfrx=9146) BASOPHILS - ABS (CELLAVISION)(BEAKER) (test 0.07 K/uL 0.01-0.08 avso=5310) TOTAL COUNTED (BEAKER) (test xmlw=6681) 100 RBC MORPHOLOGY (BEAKER) (test bzje=364) Normal PLT MORPHOLOGY (BEAKER) (test rjcc=806) Normal SMUDGE CELLS (BEAKER) (test zasb=9700) Present PLATELET CONCENTRATION (CELLAVISION)(BEAKER) (test Decreased wveb=1433) Received comment: User comments: Slide comments:COMPREHENSIVE METABOLIC [id number] 04:32:00 Test Item Value Reference Range Comments TOTAL PROTEIN (BEAKER) 5.3 gm/dL 6.0-8.3 (test kaoq=632) ALBUMIN (BEAKER) (test 2.7 g/dL 3.5-5.0 iwhv=8042) ALKALINE PHOSPHATASE 67 U/L 40-150 (BEAKER) (test zebw=423) BILIRUBIN TOTAL (BEAKER) 4.3 mg/dL 0.2-1.2 (test dych=671) SODIUM (BEAKER) (test 135 meq/L 136-145 rsut=350) POTASSIUM (BEAKER) (test 3.6 meq/L 3.5-5.1 bbdf=174) CHLORIDE (BEAKER) (test 108 meq/L 98-107 pmhd=231) CO2 (BEAKER) (test 23 meq/L 22-29 wvfv=495) BLOOD UREA NITROGEN 12 mg/dL 7-21 (BEAKER) (test rurz=653) CREATININE (BEAKER) (test 0.65 mg/dL 0.57-1.25 eqqv=300) GLUCOSE RANDOM (BEAKER) 118 mg/dL 70-105 (test wxmo=762) CALCIUM (BEAKER) (test 7.6 mg/dL 8.4-10.2 yhdy=377) AST (SGOT) (BEAKER) (test 67 U/L 5-34 uyek=039) ALT (SGPT) (BEAKER) (test 28 U/L 6-55 urcm=586) EGFR (BEAKER) (test 125 mL/min/1.73 sq ESTIMATED GFR IS NOT tjus=0112) m ACCURATE CREATININE CLEARANCE IN PREDICTING GLOMERULAR FILTRATION RATE. ESTIMATED GFR IS NOT APPLICABLE FOR DIALYSIS PATIENTS. Specimen moderately [id number] 04:31:00 Test Item Value Reference Range Comments MAGNESIUM (BEAKER) (test hohb=904) 1.9 mg/dL 1.6-2.6 LACTIC ACID, [id number] 04:18:00 Test Item Value Reference Range Comments LACTATE BLOOD VENOUS (2) (BEAKER) (test 1.3 mmol/L 0.5-2.2 dbly=3125) Specimen moderately ictericPOCT-GLUCOSE [id number] 18:00:00 Test Item Value Reference Range Comments POC-GLUCOSE METER (BEAKER) 121 mg/dL 70-110 TESTED AT [address] (test tffp=9740) [place] [address] [id number] 12:39:00 Test Item Value Reference Range Comments PROCALCITONIN (BEAKER) (test rmfl=8101) 4.50 ng/mL <0.05 SEPSIS RISK (ng/mL)Low: 0.05-0.50Intermediate: 0.51-2.00High: & gt;=2.01POCT-GLUCOSE [id number] 12:20:00 Test Item Value Reference Range Comments POC-GLUCOSE METER (BEAKER) 148 mg/dL 70-110 TESTED AT [address] (test xmnf=8401) [facility] [address] LEGION[place] ANTIGEN, [id number] 12:13:00 Test Item Value Reference Range Comments L. PNEUMOPHILA SEROGP 1 Negative - see Negative for L. UR AG (BEAKER) (test comment pneumophila serogroup 1 njfh=9246) antigen, suggesting no recent or current infection with this serogroup. Legionellosis cannot be ruled out since other serogroups and species may cause disease. STREP PNEUMONIAE [id number] 12:13:00 Test Item Value Reference Range Comments STREP PNEUMONIAE ANTIGEN Presumptive negative for Presumptive negative for (BEAKER) (test pneumococcal pneumonia - pneumococcal pneumonia - eebj=1107) see comment see commen Presumptive negative for pneumococcal pneumonia, suggesting no current or recent pneumococcal infection. Infection due to S. pneumoniae cannot be ruled out since the antigen present in the sample may be below the detection limit of the test.RAPID INFLUENZA A&B [id number] 12:11:00 Test Item Value Reference Range Comments RAPID INFLUENZA A AG (BEAKER) (test Negative Negative, Inconclusive vpnt=8224) RAPID INFLUENZA B AG (BEAKER) (test Negative Negative, Inconclusive oigx=2926) LACTIC ACID, [id number] 10:51:00 Test Item Value Reference Range Comments LACTATE BLOOD VENOUS (2) (BEAKER) (test 3.0 mmol/L 0.5-2.2 gmvs=6852) Specimen moderately ictericU/S, ABDOMINAL, [id number] 07:19:00REFJENISE GOMEZ: CHERELLE SALVADOR Please perform with dopplersReason for exam:->patient wtih cirrhosis, sepsisFINAL REPORT ULTRASOUND ABDOMEN COMPLETE, ULTRASOUND DUPLEX DOPPLER HISTORY:Cirrhosis, sepsis COMPARISON: No comparison cross-sectional imaging of the abdomen TECHNIQUE: Real-time ultrasound of the abdomen was performed. Examination included spectral and color -flow Doppler evaluation of the liver and portal [...] pancreas was suboptimally visualized. Minimal ascites is present.No pleural effusions are seen. The kidneys are normal in size, contour, and echogenicity. The right kidney measures 12.0 cm in length and the left kidney measures 11.5 cm in length. Doppler evaluation demonstrated hepatopetal flow throughout the portal venous system. Peak systolic velocity in the mainportal vein was normal, measuring 21 cm/sec. Resistive [...] direction. 4. Minimal ascites. Signed: Curtis Almanza MDReport Verified Date/Time: 10/28/2018 07:19:25 Reading Location: [address] Reading Room RAPID DRUG SCREEN, [id number] 07:07:00 Test Item Value Reference Range Comments BARBITURATE URINE (BEAKER) (test nkvo=419) Negative Negative BENZODIAZEPINE SCREEN URINE (BEAKER) (test Negative Negative ycin=992) COCAINE (METAB.) SCREEN (BEAKER) (test emkf=2782) Negative Negative METHADONE SCREEN (BEAKER) (test selq=8823) Negative Negative OPIATE SCREEN URINE (BEAKER) (test llsf=005) Positive Negative CANNABINOID SCREEN URINE (BEAKER) (test clbb=863) Negative Negative AMPH/METHAMPH SCREEN (BEAKER) (test pjdj=4235) Negative Negative PHENCYCLIDINE SCREEN URINE (BEAKER) (test vasf=444) Negative Negative DRUG CUTOFF CONC.Cocaine 300 ng/mL Cannabinoid 50 ng/mL Benzodiazepine 200 ng/mLBarbiturate 200 ng/ mLPhencyclidine 25 ng/mLOpiate 300 ng/mLMethadone 300 ng/mLAmphetamine/ 1000 ng/mL MethamphetamineOxycodone 300 ng/mLThis assay provides an unconfirmed qualitative test result for the clinical management of patients in emergency situations. Chain of custody not maintained. Some jqxk-ehm-xozvcdw medications, as well as adulterants, may cause inaccurate results. Clinical correlation should be applied. A more comprehensive drug screen or confirmation of a detected drug may be performed upon request.CT, BRAIN, WITHOUT [id number] 06:42:00REFERRJB GOMEZ: CHERELEL FRANCISCO REPORT CT, BRAIN, WITHOUT CONTRAST CLINICAL INDICATION: Confusion/delirium, altered LOC, unexplained COMPARISON: None TECHNIQUE: Noncontrast axial CT imaging of the brainand skull. Coronal and sagittal reformats obtained. DOSE REDUCTION: Dose modulation, iterative reconstruction, and/or weight-based adjustment of the mA/kV was utilized to reduce the radiation dose to as low as reasonably achievable. FINDINGS:Cerebral parenchyma: Age related parenchymal volume loss andwhite matter hypoattenuation present. 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 Calvarium and skull base: Intact.Paranasal sinuses and mastoid air cells: Left maxillary sinus presentation cystsor polyps, 2 cm.Orbital contents: Included portions unremarkable. Additional findings: None. IMPRESSION: No acute intracranial abnormality. 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 If there is persistent clinical concern for intracranial pathology, MR examination is recommended for further characterization. Signed: Efrain Day MDReport Verified Date/Time: 10/28/2018 06:42:47 VITAMIN B12 AND [id number] 06:21:00 Test Item Value Reference Range Comments VITAMIN B12 (BEAKER) (test vgoz=146) 719 pg/mL 213-816 FOLATE (BEAKER) (test nckf=135) 13.7 ng/mL >=7.0 TROPONIN [id number] 06:05:00 Test Item Value Reference Range Comments TROPONIN I (BEAKER) (test xyyn=336) 0.03 ng/mL 0.00-0.03 Troponin I (TnI) levels must be interpreted in the context of the presenting symptoms and the clinical findings. Elevated TnI levels indicate myocardial damage, but are not specific for ischemic heart disease. Elevated TnI levels are seen in patients with other cardiac conditions (including myocarditis and congestive heart failure), and slight TnI elevations occur in patients with other conditions, including sepsis, renal failure, acidosis, acute neurological disease, and persistent tachyarrhythmia.IRON, TIBC, % SAT. (WITHOUT FERRITIN) 2018-10-28 05:50:00 Test Item Value Reference Range Comments IRON (BEAKER) (test xqtg=027) 104.0 ug/dL 40.0-160.0 TOTAL IRON BINDING CAPACITY (BEAKER) (test 119 ug/dL 250-450 vbmk=253) IRON % SATURATION (2) (BEAKER) (test dale=7928) 87 % 20-55 COMPREHENSIVE METABOLIC [id number] 05:44:00 Test Item Value Reference Range Comments TOTAL PROTEIN (BEAKER) 6.1 gm/dL 6.0-8.3 (test tfhv=694) ALBUMIN (BEAKER) (test 3.1 g/dL 3.5-5.0 jshm=9177) ALKALINE PHOSPHATASE 90 U/L 40-150 (BEAKER) (test ljth=850) BILIRUBIN TOTAL (BEAKER) 5.2 mg/dL 0.2-1.2 (test nguc=881) SODIUM (BEAKER) (test 136 meq/L 136-145 ryhn=917) POTASSIUM (BEAKER) (test 4.1 meq/L 3.5-5.1 swmj=399) CHLORIDE (BEAKER) (test 105 meq/L 98-107 iyuy=790) CO2 (BEAKER) (test 22 meq/L 22-29 xszz=148) BLOOD UREA NITROGEN 13 mg/dL 7-21 (BEAKER) (test gqqw=893) CREATININE (BEAKER) (test 1.01 mg/dL 0.57-1.25 liyy=817) GLUCOSE RANDOM (BEAKER) 122 mg/dL 70-105 (test etdm=596) CALCIUM (BEAKER) (test 7.8 mg/dL 8.4-10.2 nvml=252) AST (SGOT) (BEAKER) (test 34 U/L 5-34 ufhq=475) ALT (SGPT) (BEAKER) (test 17 U/L 6-55 pqvt=976) EGFR (BEAKER) (test 75 mL/min/1.73 sq m ESTIMATED GFR IS NOT liuh=6471) ACCURATE CREATININE CLEARANCE IN PREDICTING GLOMERULAR FILTRATION RATE. ESTIMATED GFR IS NOT APPLICABLE FOR DIALYSIS PATIENTS. Specimen moderately [id number] 05:38:00 Test Item Value Reference Range Comments MAGNESIUM (BEAKER) (test jfpq=086) 2.3 mg/dL 1.6-2.6 LACTIC ACID, [id number] 05:32:00 Test Item Value Reference Range Comments LACTATE BLOOD VENOUS (2) 4.1 mmol/L 0.5-2.2 Specimen slightly hemolyzed (BEAKER) (test dnpa=1069) Specimen moderately ictericTROPONIN [id number] 02:28:00 Test Item Value Reference Range Comments TROPONIN I (BEAKER) (test emsm=082) 0.05 ng/mL 0.00-0.03 Troponin I (TnI) levels must be interpreted in the context of the presenting symptoms and the clinical findings. Elevated TnI levels indicate myocardial damage, but are not specific for ischemic heart disease. Elevated TnI levels are seen in patients with other cardiac conditions (including myocarditis and congestive heart failure), and slight TnI elevations occur in patients with other conditions, including sepsis, renal failure, acidosis, acute neurological disease, and persistent tachyarrhythmia.RAD, ABDOMEN/KUB, 1 VIEW [id number] 02 :04:00REFERRING MD: CHERELLE SALVADOR Reason for exam:->NG tube placementFINAL REPORT RAD, ABDOMEN/KUB, 1 VIEW AP CLINICAL HISTORY: NG tube placement TECHNIQUE: RAD, ABDOMEN/KUB, 1 VIEW AP COMPARISON: None IMPRESSION:Nasogastric tube tip projects overthe gastric body and the sidehole is distal to the GE junction, in satisfactory position.There is noevidence of free air or air-fluid levels. The bowel gas pattern is within normal limits. Signed: Efrain Day MDReport Verified Date/Time: 10/28/2018 02:04:20 PROTHROMBIN [id number] 01:58:00 Test Item Value Reference Range Comments PROTIME (BEAKER) (test yess=013) 18.8 seconds 11.9-14.2 INR (BEAKER) (test npub=225) 1.7 <=5.9 Effective 10/24/2018: PT Reference Range ChangeNew: 11.9-14.2 Previous: 11.7- 14.7RECOMMENDED COUMADIN/WARFARIN INR THERAPY RANGESSTANDARD DOSE: 2.0-3.0 Includes: PROPHYLAXIS for venous thrombosis, systemic embolization; TREATMENT for venous thrombosis and/or pulmonary embolus.HIGH RISK: Target INR is2.5-3.5 for patients wiht mechanical heart valves.CBC W/PLT COUNT & AUTO [id number] 01:45:00 Test Item Value Reference Range Comments WHITE BLOOD CELL COUNT (BEAKER) (test ujwu=840) 24.2 K/ L 3.5-10.5 RED BLOOD CELL COUNT (BEAKER) (test cfpn=266) 3.25 M/ L 4.63-6.08 HEMOGLOBIN (BEAKER) (test sefs=959) 11.0 GM/DL 13.7-17.5 HEMATOCRIT (BEAKER) (test lldg=743) 33.0 % 40.1-51.0 MEAN CORPUSCULAR VOLUME (BEAKER) (test zaaw=372) 101.5 fL 79.0-92.2 MEAN CORPUSCULAR HEMOGLOBIN (BEAKER) (test 33.8 pg 25.7-32.2 bkmo=646) MEAN CORPUSCULAR HEMOGLOBIN CONC (BEAKER) (test 33.3 GM/DL 32.3-36.5 vwna=746) RED CELL DISTRIBUTION WIDTH (BEAKER) (test 14.4 % 11.6-14.4 yecs=903) PLATELET COUNT (BEAKER) (test obyq=855) 73 K/CU MM 150-450 MEAN PLATELET VOLUME (BEAKER) (test esql=422) 10.0 fL 9.4-12.4 NUCLEATED RED BLOOD CELLS (BEAKER) (test 0 /100 WBC 0-0 sbhi=367) (CELLAVISION MANUAL DIFF)2018-10-28 01:45:00 Test Item Value Reference Range Comments NEUTROPHILS - REL (CELLAVISION)(BEAKER) (test 88 % kblh=6073) LYMPHOCYTES - REL (CELLAVISION)(BEAKER) (test 1 % hmjk=3571) MONOCYTES - REL (CELLAVISION)(BEAKER) (test 1 % vzlb=1341) BANDS - REL (CELLAVISION)(BEAKER) (test 10 % 0-10 usgj=6367) NEUTROPHILS - ABS (CELLAVISION)(BEAKER) (test 21.30 K/ul 1.78-5.38 bwts=4090) LYMPHOCYTES - ABS (CELLAVISION)(BEAKER) (test 0.24 K/ul 1.32-3.57 knjt=0365) MONOCYTES - ABS (CELLAVISION)(BEAKER) (test 0.24 K/uL 0.30-0.82 qagv=3284) BANDS - ABS (CELLAVISION)(BEAKER) (test 2.42 K/uL 0.00-0.80 rpjk=2793) TOTAL COUNTED (BEAKER) (test nkox=7402) 100 PLT MORPHOLOGY (BEAKER) (test omxw=437) Normal SMUDGE CELLS (BEAKER) (test atjc=3905) Present ANISOCYTOSIS (BEAKER) (test xwtm=080) 1+ few MACROCYTES (BEAKER) (test rhcg=914) 1+ few PLATELET CONCENTRATION (CELLAVISION)(BEAKER) Decreased (test tegn=8559) Received comment: User comments: Slide comments:URINALYSIS W/ REFLEX URINE [id number] 01:36:00 Test Item Value Reference Range Comments COLOR (BEAKER) (test ilwz=940) Yellow CLARITY (BEAKER) (test ncbp=020) Clear SPECIFIC GRAVITY UA (BEAKER) (test gyif=521) 1.034 1.001-1.035 PH UA (BEAKER) (test oshz=963) 6.0 5.0-8.0 PROTEIN UA (BEAKER) (test gxms=764) Negative Negative GLUCOSE UA (BEAKER) (test udri=286) Negative Negative KETONES UA (BEAKER) (test vwrg=301) Negative Negative BILIRUBIN UA (BEAKER) (test ljqa=853) Negative Negative BLOOD UA (BEAKER) (test qlnk=633) Negative Negative NITRITE UA (BEAKER) (test tyon=561) Negative Negative LEUKOCYTE ESTERASE UA (BEAKER) (test jlsc=298) Negative Negative UROBILINOGEN UA (BEAKER) (test tspv=565) 2.0 mg/dL 0.2-1.0 RBC UA (BEAKER) (test hlil=029) < /HPF WBC UA (BEAKER) (test yctv=751) < /HPF SQUAMOUS EPITHELIAL (BEAKER) (test rzcg=003) < /HPF SOURCE(BEAKER) (test dbxo=9366) COMPREHENSIVE METABOLIC [id number] 01:16:00 Test Item Value Reference Range Comments TOTAL PROTEIN (BEAKER) 6.5 gm/dL 6.0-8.3 (test jyzs=744) ALBUMIN (BEAKER) (test 2.3 g/dL 3.5-5.0 rohd=8267) ALKALINE PHOSPHATASE 134 U/L 40-150 (BEAKER) (test klfv=852) BILIRUBIN TOTAL (BEAKER) 4.9 mg/dL 0.2-1.2 (test ifad=208) SODIUM (BEAKER) (test 135 meq/L 136-145 ziqa=001) POTASSIUM (BEAKER) (test 4.7 meq/L 3.5-5.1 pixz=383) CHLORIDE (BEAKER) (test 105 meq/L 98-107 spfq=606) CO2 (BEAKER) (test 24 meq/L 22-29 rdtk=039) BLOOD UREA NITROGEN 11 mg/dL 7-21 (BEAKER) (test iuxt=069) CREATININE (BEAKER) (test 1.10 mg/dL 0.57-1.25 atuv=385) GLUCOSE RANDOM (BEAKER) 115 mg/dL 70-105 (test fgzc=457) CALCIUM (BEAKER) (test 8.0 mg/dL 8.4-10.2 wada=479) AST (SGOT) (BEAKER) (test 39 U/L 5-34 vcqt=033) ALT (SGPT) (BEAKER) (test 22 U/L 6-55 dcba=729) EGFR (BEAKER) (test 68 mL/min/1.73 sq m ESTIMATED GFR IS NOT skaa=5107) ACCURATE CREATININE CLEARANCE IN PREDICTING GLOMERULAR FILTRATION RATE. ESTIMATED GFR IS NOT APPLICABLE FOR DIALYSIS PATIENTS. Specimen moderately [id number] 01:15:00 Test Item Value Reference Range Comments AMMONIA (BEAKER) (test qofb=776) 69 mol/L 18-72 LACTIC ACID, [id number] 01:08:00 Test Item Value Reference Range Comments LACTATE BLOOD VENOUS (2) (BEAKER) (test 3.2 mmol/L 0.5-2.2 rgoy=6040) Specimen moderately [id number] 01:08:00 Test Item Value Reference Range Comments MAGNESIUM (BEAKER) (test wwpp=968) 1.1 mg/dL 1.6-2.6 RAD, CHEST, 1 VIEW, NON [id number] 00:52:00REFERRING MD: CHERELLE SALVADOR Reason for exam:->sepsisShould this be performed at the bedside?-> YesFINAL REPORT EXAMINATION: AP PORTABLE CHEST RADIOGRAPH CLINICAL INDICATION: Sepsis IMPRESSION: No comparison studies are available. Lung volumes are relatively low. Subtle streaky and reticular opacities are noted in both lungs, most conspicuous in the perihilar regions along the heart borders which may reflect associated atelectasis. An early pneumonia is difficult to exclude.No definite evidence of pulmonary edema, large pleural effusion or pneumothorax. Cardiac silhouette is mildly prominent but magnified by the AP portable technique. No evidence of an acute osseous abnormality. Signed: Alex Lynn MDReport Verified Date/Time: 10/28/2018 00:52 :42 Reading Location: [address] Reading Room ACTIN (SMOOTH MUSCLE) ANTIBODY, [id number] 08:28:00 Test Item Value Reference Range Comments SCAN RESULT (test nowk=[id number]) [id number] 08:27:00 Test Item Value Reference Range Comments SCAN RESULT (test ctgr=3215458) NILS TITER AND [id number] 09:55:00 Test Item Value Reference Range Comments NILS TITER (BEAKER) (test upap=9537) :160 NILS PATTERN (BEAKER) (test ciqe=3003) Speckled ANTI-NUCLEAR ANTIBODY (NILS)2018-10-05 09:54:00 Test Item Value Reference Range Comments ANTI-NUCLEAR ANTIBODY (NILS) (BEAKER) (test Positive Negative ccln=538) Test performed by IFA method.[id number] 10:54:00 Test Item Value Reference Range Comments FERRITIN (BEAKER) (test ufoq=958) 218 ng/mL 5-275 HEPATITIS A ANTIBODY, [id number] 10:18:00 Test Item Value Reference Range Comments HEPATITIS A IGG ANTIBODY (BEAKER) (test whof=3747) Reactive Nonreactive ALPHA FETOPROTEIN (AFP), TUMOR [id number] 10:14:00 Test Item Value Reference Range Comments ALPHA-FETOPROTEIN (BEAKER) (test ybxd=4800) 3.5 ng/mL <10.0 HEPATITIS A ANTIBODY, [id number] 10:14:00 Test Item Value Reference Range Comments HEPATITIS A IGM ANTIBODY (BEAKER) (test Nonreactive Nonreactive hkcj=776) HEPATITIS B CORE ANTIBODY, [id number] 10:14:00 Test Item Value Reference Range Comments HEPATITIS B CORE TOTAL ANTIBODY (BEAKER) (test Nonreactive Nonreactive znas=346) HEPATITIS B SURFACE [id number] 09:42:00 Test Item Value Reference Range Comments HEPATITIS B SURFACE ANTIBODY (BEAKER) (test < mIU/mL <8.0 lfpp=538) HEPATITIS C [id number] 09:37:00 Test Item Value Reference Range Comments HEPATITIS C ANTIBODY (BEAKER) (test cenp=180) Reactive Nonreactive HEPATITIS B SURFACE [id number] 09:36:00 Test Item Value Reference Range Comments HEPATITIS B SURFACE ANTIGEN (2) (BEAKER) (test Nonreactive Nonreactive tmhl=1767) IRON, TIBC, % SAT. (WITHOUT FERRITIN)2018-10-04 09:14:00 Test Item Value Reference Range Comments IRON (BEAKER) (test juyg=031) 83.0 ug/dL 40.0-160.0 TOTAL IRON BINDING CAPACITY (BEAKER) (test 204 ug/dL 250-450 skfs=285) IRON % SATURATION (2) (BEAKER) (test ljip=7009) 41 % 20-55 [id number] 09:14:00 Test Item Value Reference Range Comments ALPHA-1 ANTITRYPSIN (BEAKER) (test judb=020) 159.30 mg/dL 90.00-200.00 COMPREHENSIVE METABOLIC [id number] 09:10:00 Test Item Value Reference Range Comments TOTAL PROTEIN (BEAKER) 6.9 gm/dL 6.0-8.3 (test wgdp=129) ALBUMIN (BEAKER) (test 2.8 g/dL 3.5-5.0 gdac=5808) ALKALINE PHOSPHATASE 208 U/L 40-150 (BEAKER) (test znoj=195) BILIRUBIN TOTAL (BEAKER) 2.9 mg/dL 0.2-1.2 (test hzbe=839) SODIUM (BEAKER) (test 134 meq/L 136-145 yihv=683) POTASSIUM (BEAKER) (test 3.4 meq/L 3.5-5.1 cvgc=121) CHLORIDE (BEAKER) (test 101 meq/L 98-107 nwio=889) CO2 (BEAKER) (test 23 meq/L 22-29 ewbg=118) BLOOD UREA NITROGEN 6 mg/dL 7-21 (BEAKER) (test vkvj=553) CREATININE (BEAKER) (test 0.76 mg/dL 0.57-1.25 rhcq=740) GLUCOSE RANDOM (BEAKER) 61 mg/dL 70-105 (test xudb=205) CALCIUM (BEAKER) (test 8.3 mg/dL 8.4-10.2 hert=617) AST (SGOT) (BEAKER) (test 50 U/L 5-34 rexh=556) ALT (SGPT) (BEAKER) (test 35 U/L 6-55 xpza=621) EGFR (BEAKER) (test 104 mL/min/1.73 sq ESTIMATED GFR IS NOT tice=8185) m ACCURATE CREATININE CLEARANCE IN PREDICTING GLOMERULAR FILTRATION RATE. ESTIMATED GFR IS NOT APPLICABLE FOR DIALYSIS PATIENTS. Specimen slightly ictericBILIRUBIN, [id number] 09:10:00 Test Item Value Reference Range Comments BILIRUBIN DIRECT (BEAKER) (test fxdq=292) 1.4 mg/dL 0.1-0.5 PROTHROMBIN [id number] 08:38:00 Test Item Value Reference Range Comments PROTIME (BEAKER) (test dnmw=233) 17.6 seconds 11.7-14.7 INR (BEAKER) (test yhsd=348) 1.5 <=5.9 RECOMMENDED COUMADIN/WARFARIN INR THERAPY RANGESSTANDARD DOSE: 2.0 - 3.0 Includes: PROPHYLAXIS forvenous thrombosis, systemic embolization; TREATMENT for venous thrombosis and/or pulmonary embolus.HIGH RISK: Target INR is 2.5-3.5 for patients with mechanical heart valves.CBC W/PLT COUNT & AUTO [id number] 08:35:00 Test Item Value Reference Range Comments WHITE BLOOD CELL COUNT (BEAKER) (test wvky=741) 6.1 K/ L 3.5-10.5 RED BLOOD CELL COUNT (BEAKER) (test andt=685) 3.21 M/ L 4.63-6.08 HEMOGLOBIN (BEAKER) (test mvxx=599) 10.8 GM/DL 13.7-17.5 HEMATOCRIT (BEAKER) (test pjxe=103) 34.6 % 40.1-51.0 MEAN CORPUSCULAR VOLUME (BEAKER) (test idpx=378) 107.8 fL 79.0-92.2 MEAN CORPUSCULAR HEMOGLOBIN (BEAKER) (test 33.6 pg 25.7-32.2 inny=504) MEAN CORPUSCULAR HEMOGLOBIN CONC (BEAKER) (test 31.2 GM/DL 32.3-36.5 vfvo=160) RED CELL DISTRIBUTION WIDTH (BEAKER) (test 14.4 % 11.6-14.4 eqbk=671) PLATELET COUNT (BEAKER) (test fhty=775) 56 K/CU MM 150-450 MEAN PLATELET VOLUME (BEAKER) (test xfck=805) 11.8 fL 9.4-12.4 NUCLEATED RED BLOOD CELLS (BEAKER) (test 0 /100 WBC 0-0 ljeb=973) NEUTROPHILS RELATIVE PERCENT (BEAKER) (test 52 % qtur=639) LYMPHOCYTES RELATIVE PERCENT (BEAKER) (test 31 % rruv=505) MONOCYTES RELATIVE PERCENT (BEAKER) (test 12 % wxmb=456) EOSINOPHILS RELATIVE PERCENT (BEAKER) (test 4 % fhqg=883) BASOPHILS RELATIVE PERCENT (BEAKER) (test 1 % ydyd=557) NEUTROPHILS ABSOLUTE COUNT (BEAKER) (test 3.14 K/ L 1.78-5.38 kiuq=352) LYMPHOCYTES ABSOLUTE COUNT (BEAKER) (test 1.88 K/ L 1.32-3.57 nefi=696) MONOCYTES ABSOLUTE COUNT (BEAKER) (test jlky=827) 0.75 K/ L 0.30-0.82 EOSINOPHILS ABSOLUTE COUNT (BEAKER) (test 0.24 K/ L 0.04-0.54 vktr=116) BASOPHILS ABSOLUTE COUNT (BEAKER) (test gwkb=568) 0.05 K/ L 0.01-0.08 IMMATURE GRANULOCYTES-RELATIVE PERCENT ([place]) 1 % 0-1 (test peoh=[id number])
[2018-12-11] MEDS ORDERED: NA CHLORIDE 0.9% 1,000 ML ONE (07:48)
[2018-12-11] MEDS ORDERED: PROPOFOL 200 MG/20 ML VIAL IV ONE (08:46)
[2018-12-11] MEDS ORDERED: LIDOCAINE 1% MPF 5 ML VIAL ONE (08:46)
[2018-12-11] MEDS ORDERED: MIDAZOLAM HCL 2 MG/2 ML INJ ONE (08:46)
--- NOTE | 2018-12-11 09:00 | ENDO RPT ---
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 TOPICAL ANESTHETIC: CONSENT: The patient understands the risks and benefits of the procedure and understands that these risks include, but are not limited to: sedation, allergic reaction, infection, perforation and/or bleeding. Alternative means of evaluation and treatment include, among others: physical exam, x-rays, and/or surgical intervention. The patient elects to proceed with this endoscopic procedure. DESCRIPTION OF PROCEDURE: During intra-op preparation period all mechanical medical equipment was checked for proper function. Hand hygiene and appropriate measures for infection prevention was taken. Procedure, possible complications, and alternatives including but not limited to the possibility of bleeding, perforation, tear, infection, sepsis, need for surgery, need for blood transfusion, and anesthesia related complications were explained to the patient. After the risks, benefits and alternatives of the procedure were thoroughly explained, Informed consent was verified, confirmed and timeout was successfully executed by the treatment team. The patient was placed in the left lateral position. The patient was anesthetized with topical anesthesia. Through the anesthetized oropharyngeal area, the scope was passed without any difficulty. The [id number] ([id number]) endoscope was introduced through the mouth and advanced to the second portion of the duodenum. Retroflexed views revealed no abnormalities. The gastroscope was then slowly withdrawn and removed. 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 Esophageal banding was performed., banding X2. Mild gastritis was found in the body of the stomach. ADVERSE EVENTS: There were no complications. IMPRESSIONS: 1. 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 Mild gastritis in the body of the stomach RECOMMENDATIONS: acid suppression therapy REPEAT EXAM: Return in 3 week(s) for EGD. Anil Tavera Dr eSigned: Anil Tavera Dr 12/11/2018 9:00 AM cc: CPT CODES: ICD9 CODES: PATIENT NAME: Tonny Cardona MR#: [id number]
[2018-12-11 10:17] VITALS: TEMP 98.8
[2018-12-11 10:18] VITALS: O2SAT 100
[2018-12-11 10:19] VITALS: BP 126/67
== END 2018-12-11 10:05 | disposition home or self-care (01) ==
LOC: OR 06:38
PROVIDERS: ATTEND Internal Medicine Gastroenterology
PROC: 06L38CZ Occlusion of Esophageal Vein with Extraluminal Device, Via Natural or Artificial Opening Endoscopic (ICD-10-PCS; principal; 2018-12-11 10:45)
DX: I85.00 Esophageal varices without bleeding (principal); K29.50 Unspecified chronic gastritis without bleeding; E11.9 Type 2 diabetes mellitus without complications; I10 Essential (primary) hypertension; F41.9 Anxiety disorder, unspecified; F32.9 Major depressive disorder, single episode, unspecified; Z79.84 Long term (current) use of oral hypoglycemic drugs; Z79.899 Other long term (current) drug therapy
CPT/HCPCS: 43244; 82962; J2704; J2250; J7030

== ENCOUNTER 2019-03-05 08:47 | Day surgery (SDC) | payer OTHER ==
[2019-03-05] MEDS ORDERED: Ringers Lactate 1,000 ML IV ONE (08:51)
[2019-03-05] MEDS ORDERED: NA CHLORIDE 0.9% 1,000 ML ONE (09:02)
[2019-03-05] MEDS ORDERED: PROPOFOL 200 MG/20 ML VIAL IV ONE (09:25)
[2019-03-05] MEDS ORDERED: LIDOCAINE 1% MPF 30 ML VIAL ONE (09:25)
--- NOTE | 2019-03-05 11:20 | ENDO RPT ---
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 TOPICAL ANESTHETIC: none CONSENT: The patient understands the risks and benefits of the procedure and understands that these risks include, but are not limited to: sedation, allergic reaction, infection, perforation and/or bleeding. Alternative means of evaluation and treatment include, among others: physical exam, x-rays, and/or surgical intervention. The patient elects to proceed with this endoscopic procedure. DESCRIPTION OF PROCEDURE: During intra-op preparation period all mechanical medical equipment was checked for proper function. Hand hygiene and appropriate measures for infection prevention was taken. Procedure, possible complications, and alternatives including but not limited to the possibility of bleeding, perforation, tear, infection, sepsis, need for surgery, need for blood transfusion, and anesthesia related complications were explained to the patient. After the risks, benefits and alternatives of the procedure were thoroughly explained, Informed consent was verified, confirmed and timeout was successfully executed by the treatment team. The patient was placed in the left lateral position. The patient was anesthetized with topical anesthesia. Through the anesthetized oropharyngeal area, the scope was passed without any difficulty. The EG-[id number] ([id number]) endoscope was introduced through the mouth and advanced to the second portion of the duodenum. Retroflexed views revealed no abnormalities. The gastroscope was then slowly withdrawn and removed. Three columns of grade II varices were found in the lower esophagus. Esophageal banding was performed X3. Mild gastritis was found in the antrum. ADVERSE EVENTS: There were no complications. IMPRESSIONS: 1. Three columns of grade II varices in the lower esophagus, s/p bandings X3 2. Mild gastritis in the antrum (prior gastric biopsies in 2019) RECOMMENDATIONS: acid suppression therapy REPEAT EXAM: Return in 3 week(s) for EGD with sclerotherapy. Anil Tavera Dr eSigned: Anil Tavera Dr 03/05/2019 11:19 AM cc: CPT CODES: ICD9 CODES: PATIENT NAME: BrendanTonny MR#: [id number]
[2019-03-05 11:36] VITALS: TEMP 98.3
[2019-03-05 11:37] VITALS: O2SAT 100
[2019-03-05 11:39] VITALS: BP 133/75
== END 2019-03-05 11:42 | disposition home or self-care (01) ==
LOC: OR 08:47
PROVIDERS: ATTEND Internal Medicine Gastroenterology
PROC: 06L38CZ Occlusion of Esophageal Vein with Extraluminal Device, Via Natural or Artificial Opening Endoscopic (ICD-10-PCS; principal; 2019-03-05 10:45)
DX: K74.60 Unspecified cirrhosis of liver (principal); I85.10 Secondary esophageal varices without bleeding; K29.70 Gastritis, unspecified, without bleeding; E11.9 Type 2 diabetes mellitus without complications; I10 Essential (primary) hypertension; C45.9 Mesothelioma, unspecified; L40.9 Psoriasis, unspecified; F41.9 Anxiety disorder, unspecified; F32.9 Major depressive disorder, single episode, unspecified
CPT/HCPCS: 36415; 82962; 43244; J2704; J7120; J7030

== ENCOUNTER 2019-04-03 08:31 | Day surgery (SDC) | payer OTHER ==
[2019-04-03 09:10] VITALS: BP 110/67; TEMP 98.4; O2SAT 100
[2019-04-03 09:13] VITALS: BMI 35.5
[2019-04-03 09:19] LABS: MPV 8.8 fL (7.6-11.3)
[2019-04-03 09:27] LABS: Protime INR 1.34
[2019-04-03 09:55] LABS: Platelet Estimate DECR
--- NOTE | 2019-04-03 11:45 | RAD REPORT ---
EXAM DESCRIPTION: US - Abdomen Exam Limited - 04/03/2019 10:30 am CLINICAL HISTORY: ASCITES COMPARISON: Abdomen Pelvis W Contrast dated 10/27/2018 FINDINGS: Patient presented for ultrasound-guided paracentesis. Preliminary sonographic evaluation s howed no drainable fluid. Patient had very little ascites present. There was 1 very small pocket deep in the left lower quadrant. This is not a drainable quantity of fluid. Ordering clinician was contac lisa with the preliminary findings and the procedure was canceled. IMPRESSION: Patient had no drainable fluid collection and only 1 extremely small pocket deep in the left lower quadrant. Paracentesis procedure was canceled.
--- OUTSIDE RECORDS SUMMARY | 2019-04-08 00:32 | XMS REPORT ---
:1955 [facility] Address [address] [place] [address] Care Team Providers Name Role Phone BENNIE VILLEGAS Unavailable Unavailable SHI LI Unavailable Unavailable Problems This patient has no known problems. Allergies, Adverse Reactions, Alerts This patient has no known allergies or adverse reactions. Medications This patient has no known medications. Results Test Description Test Time Test Comments Text Results Atomic Results Result Comments ALPHA FETOPROTEIN (AFP), TUMOR MARKER 2019-02-28 14:10:00 Test Item Value Reference Range Comments ALPHA-FETOPROTEIN (BEAKER) (test owoh=6439) 2.7 ng/mL <10.0 BASIC METABOLIC [id number] 13:52:00 Test Item Value Reference Range Comments SODIUM (BEAKER) (test 134 meq/L 136-145 fstq=992) POTASSIUM (BEAKER) (test 3.6 meq/L 3.5-5.1 iuhu=526) CHLORIDE (BEAKER) (test 102 meq/L 98-107 qszw=339) CO2 (BEAKER) (test 25 meq/L 22-29 ewcp=005) BLOOD UREA NITROGEN 7 mg/dL 7-21 (BEAKER) (test ddtm=179) CREATININE (BEAKER) (test 0.78 mg/dL 0.57-1.25 amki=701) GLUCOSE RANDOM (BEAKER) 167 mg/dL 70-105 (test wvnl=925) CALCIUM (BEAKER) (test 8.5 mg/dL 8.4-10.2 ipua=326) EGFR (BEAKER) (test 101 mL/min/1.73 sq m ESTIMATED GFR IS NOT jxqt=2880) ACCURATE CREATININE CLEARANCE IN PREDICTING GLOMERULAR FILTRATION RATE. ESTIMATED GFR IS NOT APPLICABLE FOR DIALYSIS PATIENTS. Specimen slightly ictericHEPATIC FUNCTION [id number] 13:52:00 Test Item Value Reference Range Comments TOTAL PROTEIN (BEAKER) (test psor=083) 6.8 gm/dL 6.0-8.3 ALBUMIN (BEAKER) (test boxk=2613) 2.5 g/dL 3.5-5.0 BILIRUBIN TOTAL (BEAKER) (test essr=639) 3.1 mg/dL 0.2-1.2 BILIRUBIN DIRECT (BEAKER) (test nyoo=742) 1.4 mg/dL 0.1-0.5 ALKALINE PHOSPHATASE (BEAKER) (test lveq=575) 207 U/L 40-150 AST (SGOT) (BEAKER) (test xtmn=333) 44 U/L 5-34 ALT (SGPT) (BEAKER) (test himb=410) 24 U/L 6-55 Specimen slightly ictericPROTHROMBIN [id number] 13:49:00 Test Item Value Reference Range Comments PROTIME (BEAKER) (test ooqk=290) 16.9 seconds 11.9-14.2 INR (BEAKER) (test cgth=938) 1.5 <=5.9 Effective 10/24/2018: PT Reference Range ChangeNew: 11.9-14.2 Previous: 11.7- 14.7RECOMMENDED COUMADIN/WARFARIN INR THERAPY RANGESSTANDARD DOSE: 2.0-3.0 Includes: PROPHYLAXIS for venous thrombosis, systemic embolization; TREATMENT for venous thrombosis and/or pulmonary embolus.HIGH RISK: Target INR is2.5-3.5 for patients wiht mechanical heart valves.CBC W/PLT COUNT & AUTO [id number] 13:35:00 Test Item Value Reference Range Comments WHITE BLOOD CELL COUNT (BEAKER) (test kzgi=688) 6.6 K/ L 3.5-10.5 RED BLOOD CELL COUNT (BEAKER) (test lrje=663) 3.46 M/ L 4.63-6.08 HEMOGLOBIN (BEAKER) (test txzr=583) 10.7 GM/DL 13.7-17.5 HEMATOCRIT (BEAKER) (test hfij=225) 32.3 % 40.1-51.0 MEAN CORPUSCULAR VOLUME (BEAKER) (test krqa=237) 93.4 fL 79.0-92.2 MEAN CORPUSCULAR HEMOGLOBIN (BEAKER) (test 30.9 pg 25.7-32.2 ckpg=485) MEAN CORPUSCULAR HEMOGLOBIN CONC (BEAKER) (test 33.1 GM/DL 32.3-36.5 ldzf=356) RED CELL DISTRIBUTION WIDTH (BEAKER) (test 14.4 % 11.6-14.4 jlnq=691) PLATELET COUNT (BEAKER) (test sbuz=758) 60 K/CU MM 150-450 MEAN PLATELET VOLUME (BEAKER) (test nzon=889) 10.8 fL 9.4-12.4 NUCLEATED RED BLOOD CELLS (BEAKER) (test 0 /100 WBC 0-0 choo=818) NEUTROPHILS RELATIVE PERCENT (BEAKER) (test 56 % hgiv=651) LYMPHOCYTES RELATIVE PERCENT (BEAKER) (test 31 % rjez=333) MONOCYTES RELATIVE PERCENT (BEAKER) (test 10 % toxv=241) EOSINOPHILS RELATIVE PERCENT (BEAKER) (test 3 % wfkk=296) BASOPHILS RELATIVE PERCENT (BEAKER) (test 1 % bmea=418) NEUTROPHILS ABSOLUTE COUNT (BEAKER) (test 3.66 K/ L 1.78-5.38 avgb=568) LYMPHOCYTES ABSOLUTE COUNT (BEAKER) (test 2.06 K/ L 1.32-3.57 mzgv=728) MONOCYTES ABSOLUTE COUNT (BEAKER) (test cmai=126) 0.63 K/ L 0.30-0.82 EOSINOPHILS ABSOLUTE COUNT (BEAKER) (test 0.18 K/ L 0.04-0.54 ljeq=542) BASOPHILS ABSOLUTE COUNT (BEAKER) (test tvca=476) 0.04 K/ L 0.01-0.08 IMMATURE GRANULOCYTES-RELATIVE PERCENT (BEAKER) 0 % 0-1 (test fiwi=0888) [id number] 14:59:00 Test Item Value Reference Range Comments T4 TOTAL (BEAKER) (test exch=491) 5.7 ug/dL 4.9-11.7 [id number] 13:20:00 Test Item Value Reference Range Comments T3 TOTAL (BEAKER) (test xzth=414) 113 ng/dL 48-159 CYTOMEGALOVIRUS ANTIBODY, [id number] 11:11:00 Test Item Value Reference Range Comments CYTOMEGALOVIRUS, IGG (BEAKER) (test xmzc=5628) Positive Negative, Equivocal CMV IgG Result Interpretation: </=0.8 Al Negative 0.9-1.0 Al Equivocal &gt ;/=1.1 Al PositiveCYTOMEGALOVIRUS ANTIBODY, [id number] 11:11:00 Test Item Value Reference Range Comments CYTOMEGALOVIRUS IGM ANTIBODY (BEAKER) (test Negative Negative, Equivocal exeg=5628) CMV IgM Result Interpretation: </=0.8 Al Negative 0.9-1.0 Al Equivocal >/=1.1 Al PositiveEBV ANTIBODY, [id number] 11:08:00 Test Item Value Reference Range Comments EDENILSON FLORES VIRAL CAPSID ANTIGEN IGG (BEAKER) Positive Negative, Equivocal (test susg=8922) Edenilson Flores Viral Capsid Antigen IgG Result Interpretation: </=0.8 Al Negative 0.9-1.0 Al Equivocal >/=1.1 Al PositiveEBV ANTIBODY, [id number] 11:08:00 Test Item Value Reference Range Comments EDENILSON FLORES VIRAL CAPSID ANTIGEN IGM (BEAKER) Negative Negative, Equivocal (test oehy=1783) Edenilson Flores Viral Capsid Antigen IgM Result Interpretation: </=0.8 Al Negative 0.9-1.0 Al Equivocal >/=1.1 Al PositiveVARICELLA ZOSTER ANTIBODY , [id number] 11:08:00 Test Item Value Reference Range Comments VARICELLA ZOSTER IGG (AL) (BEAKER) (test qvrj=4305) > VARICELLA ZOSTER RESULT INTERPRETATIONS: <=0.8 Al Nonreactive: Presumed non-immune to VZV 0.9-1.0 Al Equivocal >=1.1 Al Reactive: Presumed immune to [id number] 13:11:00 Test Item Value Reference Range Comments ALPHA-1 ANTITRYPSIN (BEAKER) (test tcsm=879) 155.30 mg/dL 90.00-200.00 HEMOGLOBIN [id number] 13:08:00 Test Item Value Reference Range Comments HEMOGLOBIN A1C (BEAKER) (test zjwp=079) 6.4 % 4.3-6.1 HEPATITIS A ANTIBODY, [id number] 12:51:00 Test Item Value Reference Range Comments HEPATITIS A IGG ANTIBODY (BEAKER) (test dati=2585) Reactive Nonreactive HEPATITIS C [id number] 12:51:00 Test Item Value Reference Range Comments HEPATITIS C ANTIBODY (BEAKER) (test tznr=937) Reactive Nonreactive [id number] 12:48:00 Test Item Value Reference Range Comments PROSTATE SPECIFIC ANTIGEN (BEAKER) (test alpk=554) 0.4 ng/mL 0.0-4.0 HIV-1 ANTIGEN WITH HIV-1/2 [id number] 12:48:00 Test Item Value Reference Range Comments HIV-1 ANTIGEN WITH HIV 1\T\2 ANTIBODY (2) Nonreactive Nonreactive (BEAKER) (test xdgw=1219) VITAMIN D, [id number] 12:46:00 Test Item Value Reference Range Comments VITAMIN D 25-OH (BEAKER) (test bxjf=5299) 7.7 ng/mL 6.6-49.9 Effective 03/08/2017: Reference Range ChangeNew: 6.6-49.9 ng/mL Previous: 13.0 -47.8 ng/mLRecommended Vitamin D Target Range: 30.0-40.0 ng/mLURINALYSIS W/ [id number] 11:55:00 Test Item Value Reference Range Comments COLOR (BEAKER) (test bvay=530) Dark Yellow CLARITY (BEAKER) (test vwan=824) Clear SPECIFIC GRAVITY UA (BEAKER) (test bndh=153) 1.015 1.001-1.035 PH UA (BEAKER) (test epox=636) 6.5 5.0-8.0 PROTEIN UA (BEAKER) (test mzwv=000) 20 mg/dL Negative GLUCOSE UA (BEAKER) (test msva=659) Negative Negative KETONES UA (BEAKER) (test ouej=509) Negative Negative BILIRUBIN UA (BEAKER) (test zkqs=621) Positive Negative BLOOD UA (BEAKER) (test mmfp=898) Negative Negative NITRITE UA (BEAKER) (test fctj=493) Negative Negative LEUKOCYTE ESTERASE UA (BEAKER) (test jqoa=595) Negative Negative UROBILINOGEN UA (BEAKER) (test nrpu=313) 8.0 mg/dL 0.2-1.0 RBC UA (BEAKER) (test lxpp=052) < /HPF WBC UA (BEAKER) (test gxgw=336) 1 /HPF MUCUS (BEAKER) (test lifk=6598) Rare SQUAMOUS EPITHELIAL (BEAKER) (test zxiv=199) 2 /HPF CASTS (BEAKER) (test krlf=5798) 2 /LPF SOURCE(BEAKER) (test ofmh=2515) CRYPTOCOCCAL [id number] 11:10:00 Test Item Value Reference Range Comments CRYPTOCOCCAL ANTIGEN, SERUM (BEAKER) (test Negative Negative, Interference ikeq=5935) [id number] 10:59:00 Test Item Value Reference Range Comments THYROID STIMULATING HORMONE (BEAKER) (test 2.10 uIU/mL 0.35-4.94 jder=921) [id number] 10:59:00 Test Item Value Reference Range Comments FERRITIN (BEAKER) (test mght=007) 69 ng/mL 5-275 [id number] 10:51:00 Test Item Value Reference Range Comments RPR SCREEN (BEAKER) (test woan=224) Nonreactive Nonreactive [id number] 10:49:00 Test Item Value Reference Range Comments TRANSFERRIN (BEAKER) (test uimv=976) 197 mg/dL 174-382 Specimen slightly [id number] 10:45:00 Test Item Value Reference Range Comments MAGNESIUM (BEAKER) (test vrtm=325) 1.5 mg/dL 1.6-2.6 [id number] 10:45:00 Test Item Value Reference Range Comments PHOSPHORUS (BEAKER) (test faup=886) 3.6 mg/dL 2.3-4.7 URIC [id number] 10:45:00 Test Item Value Reference Range Comments URIC ACID (BEAKER) (test tdcc=680) 4.8 mg/dL 2.6-7.2 Specimen slightly ictericCOMPREHENSIVE METABOLIC [id number] 10:45:00 Test Item Value Reference Range Comments TOTAL PROTEIN (BEAKER) 6.7 gm/dL 6.0-8.3 (test qjqy=276) ALBUMIN (BEAKER) (test 2.6 g/dL 3.5-5.0 jcsw=1934) ALKALINE PHOSPHATASE 194 U/L 40-150 (BEAKER) (test cwny=147) BILIRUBIN TOTAL (BEAKER) 3.6 mg/dL 0.2-1.2 (test himh=769) SODIUM (BEAKER) (test 136 meq/L 136-145 ztnd=265) POTASSIUM (BEAKER) (test 3.4 meq/L 3.5-5.1 nsbc=652) CHLORIDE (BEAKER) (test 102 meq/L 98-107 ybts=172) CO2 (BEAKER) (test 29 meq/L 22-29 izgg=270) BLOOD UREA NITROGEN 6 mg/dL 7-21 (BEAKER) (test vdrq=789) CREATININE (BEAKER) (test 0.66 mg/dL 0.57-1.25 rinb=890) GLUCOSE RANDOM (BEAKER) 128 mg/dL 70-105 (test iytf=883) CALCIUM (BEAKER) (test 8.2 mg/dL 8.4-10.2 cqaw=532) AST (SGOT) (BEAKER) (test 40 U/L 5-34 wtgt=663) ALT (SGPT) (BEAKER) (test 24 U/L 6-55 aowc=297) EGFR (BEAKER) (test 122 mL/min/1.73 sq ESTIMATED GFR IS NOT sinn=5681) m ACCURATE CREATININE CLEARANCE IN PREDICTING GLOMERULAR FILTRATION RATE. ESTIMATED GFR IS NOT APPLICABLE FOR DIALYSIS PATIENTS. Specimen slightly ictericLIPID [id number] 10:45:00 Test Item Value Reference Range Comments TRIGLYCERIDES (BEAKER) (test beuf=090) 89 mg/dL CHOLESTEROL (BEAKER) (test rrcz=452) 104 mg/dL HDL CHOLESTEROL (BEAKER) (test xzta=797) 29 mg/dL LDL CHOLESTEROL CALCULATED (BEAKER) (test 57 mg/dL thli=657) Triglyceride Reference Range: Low Risk <150 Borderline 150- 199 High Risk 200-499 Very High Risk >=500Cholesterol Reference Range: Low Risk <200 Borderline 200-239 High Risk > 240HDL Cholesterol Reference Range: Low Risk >=60 High Risk <40LDL Cholesterol Reference Range: Optimal <100 Near Optimal 100-129 Borderline 130-159 High 160-189 Very High >=190 Specimen slightly ictericBILIRUBIN, [id number] 10:45:00 Test Item Value Reference Range Comments BILIRUBIN DIRECT (BEAKER) (test ggxt=517) 1.6 mg/dL 0.1-0.5 GAMMA GLUTAMYL TRANSFERASE (GGT)2018-12-20 10:45:00 Test Item Value Reference Range Comments GAMMA GLUTAMYL TRANSFERASE (BEAKER) (test qnnk=109) 33 U/L 9-64 Specimen slightly [id number] 10:42:00 Test Item Value Reference Range Comments PARTIAL THROMBOPLASTIN TIME (BEAKER) (test 37.9 seconds 22.5-36.0 uxrz=649) PROTHROMBIN [id number] 10:36:00 Test Item Value Reference Range Comments PROTIME (BEAKER) (test hxls=567) 17.8 seconds 11.9-14.2 INR (BEAKER) (test xksk=493) 1.5 <=5.9 Effective 10/24/2018: PT Reference Range ChangeNew: 11.9-14.2 Previous: 11.7- 14.7RECOMMENDED COUMADIN/WARFARIN INR THERAPY RANGESSTANDARD DOSE: 2.0-3.0 Includes: PROPHYLAXIS for venous thrombosis, systemic embolization; TREATMENT for venous thrombosis and/or pulmonary embolus.HIGH RISK: Target INR is2.5-3.5 for patients wiht mechanical heart valves.[id number] 10:36:00 Test Item Value Reference Range Comments ETHANOL (BEAKER) (test hafq=381) < mg/dL <=10 [id number] 10:36:00 Test Item Value Reference Range Comments FIBRINOGEN LEVEL (BEAKER) (test iqlg=403) 207 mg/dl 225-434 BLOOD GAS, [id number] 10:35:00 Test Item Value Reference Range Comments PH ARTERIAL (BEAKER) (test eldb=763) 7.50 7.35-7.45 PCO2 ARTERIAL (BEAKER) (test scth=453) 37 mmHg 35-45 PO2 ARTERIAL (BEAKER) (test vfdn=625) 86 mmHg 80-90 O2 SATURATION ARTERIAL (BEAKER) (test cnkr=487) 97.2 % 96.0-97.0 HCO3 ARTERIAL (BEAKER) (test cbtq=514) 28 mmol/L 21-29 BASE EXCESS ARTERIAL (BEAKER) (test fwqu=584) 4.9 mmol/L -2.0-3.0 PATIENT TEMPERATURE (BEAKER) (test umzk=0548) 37.0 C FIO2 (BEAKER) (test luvw=9261) 21.0 % CBC W/PLT COUNT & AUTO [id number] 10:25:00 Test Item Value Reference Range Comments WHITE BLOOD CELL COUNT (BEAKER) (test cvaq=425) 7.7 K/ L 3.5-10.5 RED BLOOD CELL COUNT (BEAKER) (test xyds=193) 3.26 M/ L 4.63-6.08 HEMOGLOBIN (BEAKER) (test rant=711) 10.5 GM/DL 13.7-17.5 HEMATOCRIT (BEAKER) (test cyrz=674) 31.4 % 40.1-51.0 MEAN CORPUSCULAR VOLUME (BEAKER) (test rdil=864) 96.3 fL 79.0-92.2 MEAN CORPUSCULAR HEMOGLOBIN (BEAKER) (test 32.2 pg 25.7-32.2 rwqx=226) MEAN CORPUSCULAR HEMOGLOBIN CONC (BEAKER) (test 33.4 GM/DL 32.3-36.5 pmze=360) RED CELL DISTRIBUTION WIDTH (BEAKER) (test 13.9 % 11.6-14.4 itfo=311) PLATELET COUNT (BEAKER) (test kkjs=877) 59 K/CU MM 150-450 MEAN PLATELET VOLUME (BEAKER) (test cgsf=026) 10.7 fL 9.4-12.4 NUCLEATED RED BLOOD CELLS (BEAKER) (test 0 /100 WBC 0-0 ctxw=761) NEUTROPHILS RELATIVE PERCENT (BEAKER) (test 56 % wqoj=077) LYMPHOCYTES RELATIVE PERCENT (BEAKER) (test 29 % clif=163) MONOCYTES RELATIVE PERCENT (BEAKER) (test 10 % nndg=928) EOSINOPHILS RELATIVE PERCENT (BEAKER) (test 3 % qcya=401) BASOPHILS RELATIVE PERCENT (BEAKER) (test 1 % uniw=823) NEUTROPHILS ABSOLUTE COUNT (BEAKER) (test 4.32 K/ L 1.78-5.38 xxeu=108) LYMPHOCYTES ABSOLUTE COUNT (BEAKER) (test 2.24 K/ L 1.32-3.57 kprm=172) MONOCYTES ABSOLUTE COUNT (BEAKER) (test vjny=147) 0.80 K/ L 0.30-0.82 EOSINOPHILS ABSOLUTE COUNT (BEAKER) (test 0.23 K/ L 0.04-0.54 jmcx=313) BASOPHILS ABSOLUTE COUNT (BEAKER) (test wzam=927) 0.04 K/ L 0.01-0.08 IMMATURE GRANULOCYTES-RELATIVE PERCENT (BEAKER) 1 % 0-1 (test zklk=2233) CALCIUM, [id number] 10:20:00 Test Item Value Reference Range Comments CALCIUM IONIZED (BEAKER) (test uobq=758) 1.05 mmol/L 1.12-1.27 PH, BLOOD (BEAKER) (test tlym=8929) 7.41 RAD, MANDIBLE, MIN 4 [id number] 16:56:00REFERRING : CHERELLE SALVADOR Reason for Exam:->pretransplant liver evaluationFINAL REPORT TECHNIQUE: Minimum four views of the mandible. INDICATION: pretransplant liver evaluation. COMPARISON: None. FINDINGS:No fracture or dislocation.No periapical lucencies.Caries of a maxillary molar, side indeterminate.Mild degenerative disc changes at C4-C5, C5-C6, and C6-C7. IMPRESSION: No periapical lucency. Caries of a maxillary molar, side indeterminate. Signed:Isaías Hernandez Verified Date/Time: 12/19/2018 16:56: 31 Reading Location: [address] Radiology Reading Room RAD, CHEST, 2 [id number] 15:51:00REFERRING : CHERELLE SALVADOR Reason for Exam:->pretransplant liver evaluationFINAL REPORT Chest, PA and lateral. History: Transplant evaluation. Comparison: 10/28/2018. Discussion: The cardiomediastinal silhouette and pulmonary vasculature are within normal limits. The lungs are clear without evidence of consolidation or effusion. There are no acute osseous abnormalities. The soft tissues are unremarkable. IMPRESSION: No acute cardiopulmonary abnormality. Signed: Farzaneh Hathawayort Verified Date/Time: 12/19/2018 15:51:17 [facility] Electronically signed by: FARZANEH HATHAWAY M.D. on 2018 03:51 PMMR, ABDOMEN, [id number] 14:51:00REFERRING : CHERELLE LEROYTFINAL REPORT TECHNIQUE: MRI of the abdomen WITHOUT and WITH intravenous contrast. INDICATION: pretransplant liver evaluation. COMPARISON: None. FINDINGS: LOWER THORAX: Unremarkable. LIVER: Nodular, cirrhotic. A cyst in segment VII measures 1 cm on series 3 image 23. A rounded area of arterial segment III measures 1.4 cm on series 12 image 39. No washout or pseudocapsule formation. BILIARY: Gallbladder is unremarkable. No biliary ductal dilatation or filling defect.SPLEEN: 16.5 cm splenomegaly. There is likely a calcified granuloma measures 0.7 cm.PANCREAS: No focal masses orductal dilatation. ADRENALS: No adrenal nodules.KIDNEYS/URETERS: No hydronephrosis or solid mass lesions. A retropulsive a renal cyst measures 1.3 cm. PERITONEUM/ RETROPERITONEUM: Small volume ascites. The partially visualized umbilical hernia contains ascites with multiple internal septations.LYMPH NODES: No lymphadenopathy.VESSELS: Large esophageal varices.Three left hepatic artery from the left gastric artery. The left gastric originates directly from the aorta. The main portal vein is patent and measures 1.4 cm in diameter. GI TRACT : No distention or wall thickening. 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 BONES AND SOFT TISSUES: Bilateral gynecomastia. IMPRESSION: 1.No suspicious focal hepatic lesions. 2.A rounded area of arterial phase hyperenhancement in segment III measures 1.4 cm. No washout or pseudocapsule formation. A follow-up MRI is recommended in three months. 3.Cirrhosis with sequelae of portal hypertension including small volume ascites, splenomegaly, and large esophageal varices. Signed: Isaías Hernandez MDReport Verified Date/Time: 12/19/2018 14:51:24 Reading Location: [address] Radiology Reading Room [id number] 11:12:00 Test Item Value Reference Range Comments ETHANOL (BEAKER) (test szgi=255) < mg/dL <=10 BASIC METABOLIC [id number] 10:56:00 Test Item Value Reference Range Comments SODIUM (BEAKER) (test 135 meq/L 136-145 cbvy=075) POTASSIUM (BEAKER) (test 3.8 meq/L 3.5-5.1 ufbb=247) CHLORIDE (BEAKER) (test 102 meq/L 98-107 meqq=487) CO2 (BEAKER) (test 28 meq/L 22-29 rsgd=968) BLOOD UREA NITROGEN 5 mg/dL 7-21 (BEAKER) (test hfxz=461) CREATININE (BEAKER) (test 0.80 mg/dL 0.57-1.25 kuqz=500) GLUCOSE RANDOM (BEAKER) 237 mg/dL 70-105 (test pgen=287) CALCIUM (BEAKER) (test 8.3 mg/dL 8.4-10.2 zdpl=023) EGFR (BEAKER) (test 98 mL/min/1.73 sq m ESTIMATED GFR IS NOT ahcd=7156) ACCURATE CREATININE CLEARANCE IN PREDICTING GLOMERULAR FILTRATION RATE. ESTIMATED GFR IS NOT APPLICABLE FOR DIALYSIS PATIENTS. Specimen moderately ictericHEPATIC FUNCTION [id number] 10:56:00 Test Item Value Reference Range Comments TOTAL PROTEIN (BEAKER) (test gewa=587) 7.0 gm/dL 6.0-8.3 ALBUMIN (BEAKER) (test tlcj=2164) 2.7 g/dL 3.5-5.0 BILIRUBIN TOTAL (BEAKER) (test oect=246) 3.8 mg/dL 0.2-1.2 BILIRUBIN DIRECT (BEAKER) (test wwrz=570) 1.3 mg/dL 0.1-0.5 ALKALINE PHOSPHATASE (BEAKER) (test rmsl=218) 186 U/L 40-150 AST (SGOT) (BEAKER) (test vpun=274) 43 U/L 5-34 ALT (SGPT) (BEAKER) (test gfau=730) 27 U/L 6-55 Specimen moderately ictericPROTHROMBIN TIME/[id number] 10:40:00 Test Item Value Reference Range Comments PROTIME (BEAKER) (test ebjf=550) 18.4 seconds 11.9-14.2 INR (BEAKER) (test ffdv=289) 1.6 <=5.9 Effective 10/24/2018: PT Reference Range ChangeNew: 11.9-14.2 Previous: 11.7- 14.7RECOMMENDED COUMADIN/WARFARIN INR THERAPY RANGESSTANDARD DOSE: 2.0-3.0 Includes: PROPHYLAXIS for venous thrombosis, systemic embolization; TREATMENT for venous thrombosis and/or pulmonary embolus.HIGH RISK: Target INR is2.5-3.5 for patients wiht mechanical heart valves.CBC W/PLT COUNT & AUTO [id number] 10:38:00 Test Item Value Reference Range Comments WHITE BLOOD CELL COUNT (BEAKER) (test nafx=718) 5.1 K/ L 3.5-10.5 RED BLOOD CELL COUNT (BEAKER) (test onzp=660) 3.19 M/ L 4.63-6.08 HEMOGLOBIN (BEAKER) (test fmyz=334) 10.5 GM/DL 13.7-17.5 HEMATOCRIT (BEAKER) (test ueav=093) 32.6 % 40.1-51.0 MEAN CORPUSCULAR VOLUME (BEAKER) (test ftua=572) 102.2 fL 79.0-92.2 MEAN CORPUSCULAR HEMOGLOBIN (BEAKER) (test 32.9 pg 25.7-32.2 itrw=507) MEAN CORPUSCULAR HEMOGLOBIN CONC (BEAKER) (test 32.2 GM/DL 32.3-36.5 kmjw=834) RED CELL DISTRIBUTION WIDTH (BEAKER) (test 14.5 % 11.6-14.4 zxez=939) PLATELET COUNT (BEAKER) (test vifp=566) 59 K/CU MM 150-450 MEAN PLATELET VOLUME (BEAKER) (test kepo=610) 10.9 fL 9.4-12.4 NUCLEATED RED BLOOD CELLS (BEAKER) (test 0 /100 WBC 0-0 ozzv=161) NEUTROPHILS RELATIVE PERCENT (BEAKER) (test 44 % imui=660) LYMPHOCYTES RELATIVE PERCENT (BEAKER) (test 39 % yhju=879) MONOCYTES RELATIVE PERCENT (BEAKER) (test 11 % djmq=551) EOSINOPHILS RELATIVE PERCENT (BEAKER) (test 5 % dzdx=129) BASOPHILS RELATIVE PERCENT (BEAKER) (test 1 % rjxh=560) NEUTROPHILS ABSOLUTE COUNT (BEAKER) (test 2.26 K/ L 1.78-5.38 rnoh=540) LYMPHOCYTES ABSOLUTE COUNT (BEAKER) (test 1.99 K/ L 1.32-3.57 vweu=354) MONOCYTES ABSOLUTE COUNT (BEAKER) (test xvht=160) 0.55 K/ L 0.30-0.82 EOSINOPHILS ABSOLUTE COUNT (BEAKER) (test 0.24 K/ L 0.04-0.54 qreh=225) BASOPHILS ABSOLUTE COUNT (BEAKER) (test sosa=166) 0.05 K/ L 0.01-0.08 IMMATURE GRANULOCYTES-RELATIVE PERCENT (BEAKER) 0 % 0-1 (test npge=9152) BLOOD [id number] 08:00:00 Test Item Value Reference Range Comments CULTURE (BEAKER) (test faey=3084) No growth in 5 days BLOOD [id number] 08:00:00 Test Item Value Reference Range Comments CULTURE (BEAKER) (test xaqu=4145) No growth in 5 days BODY FLUID CULTURE + GRAM [id number] 12:20:00 Test Item Value Reference Range Comments CULTURE (BEAKER) (test pkww=7284) No growth GRAM STAIN RESULT (BEAKER) (test 1+ WBCs cdgs=6073) GRAM STAIN RESULT (BEAKER) (test No organisms seen zlup=19528) HEPATITIS C PCR, [id number] 08:32:00 Test Item Value Reference Range Comments HCV RESULT COMPONENT (BEAKER) HCV RNA not detected HCV RNA not detected (test qlec=8751) This test uses a Real-Time Polymerase Chain Reaction (RT-PCR) methodology and was performed using [employer] Ampliprep/KHOA TaqMan HCV test kit version 2.0 ( [employer]).Reportable range for this assay is 15 - 100,000, 000 IU per mL (1.18 - 8.00 Log IU/mL).POCT-GLUCOSE [id number] 08:09:00 Test Item Value Reference Range Comments POC-GLUCOSE METER (BEAKER) 117 mg/dL 70-110 TESTED AT [facility] [address] [facility] [address] (test eyba=2826) [facility] [address] CALCIUM, [id number] 05:54:00 Test Item Value Reference Range Comments CALCIUM IONIZED (BEAKER) (test etob=663) 1.01 mmol/L 1.12-1.27 PH, BLOOD (BEAKER) (test ifrz=5733) 7.45 COMPREHENSIVE METABOLIC [id number] 05:07:00 Test Item Value Reference Range Comments TOTAL PROTEIN (BEAKER) 5.4 gm/dL 6.0-8.3 (test xilt=555) ALBUMIN (BEAKER) (test 2.5 g/dL 3.5-5.0 ldhp=0537) ALKALINE PHOSPHATASE 100 U/L 40-150 (BEAKER) (test lnzq=370) BILIRUBIN TOTAL (BEAKER) 3.0 mg/dL 0.2-1.2 (test ykqa=505) SODIUM (BEAKER) (test 137 meq/L 136-145 pmzs=929) POTASSIUM (BEAKER) (test 3.8 meq/L 3.5-5.1 fcpl=549) CHLORIDE (BEAKER) (test 110 meq/L 98-107 qels=846) CO2 (BEAKER) (test 24 meq/L 22-29 oeyj=096) BLOOD UREA NITROGEN 6 mg/dL 7-21 (BEAKER) (test qgbp=456) CREATININE (BEAKER) (test 0.66 mg/dL 0.57-1.25 pybe=683) GLUCOSE RANDOM (BEAKER) 100 mg/dL 70-105 (test yguc=842) CALCIUM (BEAKER) (test 7.7 mg/dL 8.4-10.2 fsgq=287) AST (SGOT) (BEAKER) (test 65 U/L 5-34 uays=879) ALT (SGPT) (BEAKER) (test 31 U/L 6-55 cect=719) EGFR (BEAKER) (test 123 mL/min/1.73 sq ESTIMATED GFR IS NOT yvth=7446) m ACCURATE CREATININE CLEARANCE IN PREDICTING GLOMERULAR FILTRATION RATE. ESTIMATED GFR IS NOT APPLICABLE FOR DIALYSIS PATIENTS. Specimen slightly [id number] 05:06:00 Test Item Value Reference Range Comments PHOSPHORUS (BEAKER) (test bseq=636) 3.3 mg/dL 2.3-4.7 [id number] 05:06:00 Test Item Value Reference Range Comments MAGNESIUM (BEAKER) (test cxmz=107) 1.5 mg/dL 1.6-2.6 CBC W/PLT COUNT & AUTO [id number] 04:43:00 Test Item Value Reference Range Comments WHITE BLOOD CELL COUNT (BEAKER) (test hygj=639) 5.8 K/ L 3.5-10.5 RED BLOOD CELL COUNT (BEAKER) (test cqsx=877) 2.70 M/ L 4.63-6.08 HEMOGLOBIN (BEAKER) (test wuye=384) 9.0 GM/DL 13.7-17.5 HEMATOCRIT (BEAKER) (test csdj=640) 27.8 % 40.1-51.0 MEAN CORPUSCULAR VOLUME (BEAKER) (test xafy=659) 103.0 fL 79.0-92.2 MEAN CORPUSCULAR HEMOGLOBIN (BEAKER) (test 33.3 pg 25.7-32.2 ihxg=061) MEAN CORPUSCULAR HEMOGLOBIN CONC (BEAKER) (test 32.4 GM/DL 32.3-36.5 sgzo=445) RED CELL DISTRIBUTION WIDTH (BEAKER) (test 14.2 % 11.6-14.4 iukc=829) PLATELET COUNT (BEAKER) (test qpld=254) 45 K/CU MM 150-450 MEAN PLATELET VOLUME (BEAKER) (test vgpd=270) 10.1 fL 9.4-12.4 NUCLEATED RED BLOOD CELLS (BEAKER) (test 0 /100 WBC 0-0 ahvw=186) NEUTROPHILS RELATIVE PERCENT (BEAKER) (test 47 % maao=273) LYMPHOCYTES RELATIVE PERCENT (BEAKER) (test 35 % nifj=836) MONOCYTES RELATIVE PERCENT (BEAKER) (test 12 % hxwy=131) EOSINOPHILS RELATIVE PERCENT (BEAKER) (test 4 % tjjw=720) BASOPHILS RELATIVE PERCENT (BEAKER) (test 1 % wwio=454) NEUTROPHILS ABSOLUTE COUNT (BEAKER) (test 2.68 K/ L 1.78-5.38 zkxw=111) LYMPHOCYTES ABSOLUTE COUNT (BEAKER) (test 2.03 K/ L 1.32-3.57 eywy=492) MONOCYTES ABSOLUTE COUNT (BEAKER) (test awyc=793) 0.71 K/ L 0.30-0.82 EOSINOPHILS ABSOLUTE COUNT (BEAKER) (test 0.23 K/ L 0.04-0.54 oyfc=716) BASOPHILS ABSOLUTE COUNT (BEAKER) (test psyd=060) 0.03 K/ L 0.01-0.08 IMMATURE GRANULOCYTES-RELATIVE PERCENT (BEAKER) 1 % 0-1 (test scbh=5782) POCT-GLUCOSE [id number] 21:35:00 Test Item Value Reference Range Comments POC-GLUCOSE METER (BEAKER) 154 mg/dL 70-110 TESTED AT [address] (test jvkz=8510) [facility] [address] POCT-GLUCOSE [id number] 17:21:00 Test Item Value Reference Range Comments POC-GLUCOSE METER (BEAKER) 138 mg/dL 70-110 TESTED AT [address] (test homp=3105) [facility] [address] POCT-GLUCOSE [id number] 13:27:00 Test Item Value Reference Range Comments POC-GLUCOSE METER (BEAKER) 166 mg/dL 70-110 TESTED AT [address] (test uluw=2686) [facility] [address] CBC W/PLT COUNT & AUTO [id number] 12:00:00 Test Item Value Reference Range Comments WHITE BLOOD CELL COUNT (BEAKER) (test lpbg=597) 6.0 K/ L 3.5-10.5 RED BLOOD CELL COUNT (BEAKER) (test exdd=662) 2.79 M/ L 4.63-6.08 HEMOGLOBIN (BEAKER) (test nlqk=574) 9.4 GM/DL 13.7-17.5 HEMATOCRIT (BEAKER) (test aknk=116) 28.2 % 40.1-51.0 MEAN CORPUSCULAR VOLUME (BEAKER) (test glsc=216) 101.1 fL 79.0-92.2 MEAN CORPUSCULAR HEMOGLOBIN (BEAKER) (test 33.7 pg 25.7-32.2 gawi=794) MEAN CORPUSCULAR HEMOGLOBIN CONC (BEAKER) (test 33.3 GM/DL 32.3-36.5 ooab=362) RED CELL DISTRIBUTION WIDTH (BEAKER) (test 14.2 % 11.6-14.4 iqbb=134) PLATELET COUNT (BEAKER) (test cchp=131) 47 K/CU MM 150-450 MEAN PLATELET VOLUME (BEAKER) (test lajf=523) 9.9 fL 9.4-12.4 NUCLEATED RED BLOOD CELLS (BEAKER) (test 0 /100 WBC 0-0 dnur=726) (CELLAVISION MANUAL DIFF)2018-10-30 12:00:00 Test Item Value Reference Range Comments NEUTROPHILS - REL (CELLAVISION)(BEAKER) (test 64 % bmaj=9911) LYMPHOCYTES - REL (CELLAVISION)(BEAKER) (test 28 % zzri=9458) MONOCYTES - REL (CELLAVISION)(BEAKER) (test 5 % ywto=9848) EOSINOPHILS - REL (CELLAVISION)(BEAKER) (test 3 % fodd=5622) NEUTROPHILS - ABS (CELLAVISION)(BEAKER) (test 3.84 K/ul 1.78-5.38 ptdm=4737) LYMPHOCYTES - ABS (CELLAVISION)(BEAKER) (test 1.68 K/ul 1.32-3.57 czay=4947) MONOCYTES - ABS (CELLAVISION)(BEAKER) (test 0.30 K/uL 0.30-0.82 svdr=8551) EOSINOPHILS - ABS (CELLAVISION)(BEAKER) (test 0.18 K/uL 0.04-0.54 hnnn=1954) TOTAL COUNTED (BEAKER) (test ryqh=7152) 100 WBC MORPHOLOGY (BEAKER) (test vhuf=905) Normal PLT MORPHOLOGY (BEAKER) (test lzxy=664) Normal ANISOCYTOSIS (BEAKER) (test okto=598) 1+ few MACROCYTES (BEAKER) (test yglz=722) 1+ few ARTIFACT (CELLAVISION)(BEAKER) (test esvm=2926) Present PLATELET CONCENTRATION (CELLAVISION)(BEAKER) (test Decreased nobp=6322) Received comment: User comments: Slide comments:POCT-GLUCOSE [id number] 11: 52:00 Test Item Value Reference Range Comments POC-GLUCOSE METER (BEAKER) 180 mg/dL 70-110 TESTED AT [address] (test sbhq=3448) [place] [id number] POCT-GLUCOSE [id number] 08:09:00 Test Item Value Reference Range Comments POC-GLUCOSE METER (BEAKER) 115 mg/dL 70-110 TESTED AT [address] (test eyht=1707) [place] [id number] COMPREHENSIVE METABOLIC [id number] 05:59:00 Test Item Value Reference Range Comments TOTAL PROTEIN (BEAKER) 5.4 gm/dL 6.0-8.3 (test ywcj=457) ALBUMIN (BEAKER) (test 2.6 g/dL 3.5-5.0 ojkr=0332) ALKALINE PHOSPHATASE 79 U/L 40-150 (BEAKER) (test qrmq=409) BILIRUBIN TOTAL (BEAKER) 3.1 mg/dL 0.2-1.2 (test vufs=672) SODIUM (BEAKER) (test 137 meq/L 136-145 lxbg=505) POTASSIUM (BEAKER) (test 3.7 meq/L 3.5-5.1 hvqk=154) CHLORIDE (BEAKER) (test 109 meq/L 98-107 pkub=539) CO2 (BEAKER) (test 23 meq/L 22-29 sabv=794) BLOOD UREA NITROGEN 7 mg/dL 7-21 (BEAKER) (test huoo=136) CREATININE (BEAKER) (test 0.68 mg/dL 0.57-1.25 auxg=229) GLUCOSE RANDOM (BEAKER) 130 mg/dL 70-105 (test iysn=711) CALCIUM (BEAKER) (test 7.6 mg/dL 8.4-10.2 ofee=742) AST (SGOT) (BEAKER) (test 74 U/L 5-34 rkwc=782) ALT (SGPT) (BEAKER) (test 32 U/L 6-55 jezq=653) EGFR (BEAKER) (test 119 mL/min/1.73 sq ESTIMATED GFR IS NOT wori=2006) m ACCURATE CREATININE CLEARANCE IN PREDICTING GLOMERULAR FILTRATION RATE. ESTIMATED GFR IS NOT APPLICABLE FOR DIALYSIS PATIENTS. Specimen slightly [id number] 05:57:00 Test Item Value Reference Range Comments MAGNESIUM (BEAKER) (test xudy=062) 1.6 mg/dL 1.6-2.6 POCT-GLUCOSE [id number] 22:30:00 Test Item Value Reference Range Comments POC-GLUCOSE METER (BEAKER) 186 mg/dL 70-110 TESTED AT [facility] [address] [facility] (test mjtl=6306) [facility] [address] POCT-GLUCOSE [id number] 18:33:00 Test Item Value Reference Range Comments POC-GLUCOSE METER (BEAKER) 117 mg/dL 70-110 TESTED AT [facility] [address] [facility] (test faam=1654) [facility] [address] U/S, [id number] 17:34:00REFERRING : CHERELLE SALVADOR Please give 25g albumin if [...] 2% lidocaine anesthesia was administered. A 5 Samoan catheter was advanced into the peritoneal cavity and 1300 cc of addison fluid was removed. The catheter was removed without immediate complication. Samples left with interstitial sent to the lab for analysis. IMPRESSION:Uncomplicated ultrasound-guided paracentesis with 1300 cc fluid removed. Signed: Mauricio Cullen MDReport Verified Date/Time: 10/29/2018 17:34: 00 Reading Location: [facility] [id number] Ultrasound Reading Room VANCOMYCIN LEVEL, [id number] 17:22:00 Test Item Value Reference Range Comments VANCOMYCIN TROUGH (BEAKER) (test tuef=566) 7.3 ug/mL 10.0-20.0 CBC W/PLT COUNT & AUTO [id number] 15:00:00 Test Item Value Reference Range Comments WHITE BLOOD CELL COUNT (BEAKER) (test mous=123) 7.2 K/ L 3.5-10.5 RED BLOOD CELL COUNT (BEAKER) (test rbrc=246) 2.76 M/ L 4.63-6.08 HEMOGLOBIN (BEAKER) (test qxzt=829) 9.2 GM/DL 13.7-17.5 HEMATOCRIT (BEAKER) (test izlj=758) 28.9 % 40.1-51.0 MEAN CORPUSCULAR VOLUME (BEAKER) (test zshs=526) 104.7 fL 79.0-92.2 MEAN CORPUSCULAR HEMOGLOBIN (BEAKER) (test 33.3 pg 25.7-32.2 gefn=529) MEAN CORPUSCULAR HEMOGLOBIN CONC (BEAKER) (test 31.8 GM/DL 32.3-36.5 ryyq=742) RED CELL DISTRIBUTION WIDTH (BEAKER) (test 14.6 % 11.6-14.4 ltps=533) PLATELET COUNT (BEAKER) (test oefg=535) 44 K/CU MM 150-450 MEAN PLATELET VOLUME (BEAKER) (test vcda=368) 10.2 fL 9.4-12.4 NUCLEATED RED BLOOD CELLS (BEAKER) (test 0 /100 WBC 0-0 cftg=204) NEUTROPHILS RELATIVE PERCENT (BEAKER) (test 53 % njrd=342) LYMPHOCYTES RELATIVE PERCENT (BEAKER) (test 31 % ebpb=193) MONOCYTES RELATIVE PERCENT (BEAKER) (test 12 % iixb=157) EOSINOPHILS RELATIVE PERCENT (BEAKER) (test 3 % jgsk=682) BASOPHILS RELATIVE PERCENT (BEAKER) (test 1 % sini=009) NEUTROPHILS ABSOLUTE COUNT (BEAKER) (test 3.83 K/ L 1.78-5.38 dhza=542) LYMPHOCYTES ABSOLUTE COUNT (BEAKER) (test 2.20 K/ L 1.32-3.57 vaqj=844) MONOCYTES ABSOLUTE COUNT (BEAKER) (test hsfw=140) 0.83 K/ L 0.30-0.82 EOSINOPHILS ABSOLUTE COUNT (BEAKER) (test 0.24 K/ L 0.04-0.54 zzfb=725) BASOPHILS ABSOLUTE COUNT (BEAKER) (test xkfg=313) 0.04 K/ L 0.01-0.08 IMMATURE GRANULOCYTES-RELATIVE PERCENT (BEAKER) 1 % 0-1 (test dusv=0856) BODY FLUID CELL COUNT WITH [id number] 13:45:00 Test Item Value Reference Range Comments APPEARANCE FLUID (BEAKER) (test paro=041) Hazy Clear COLOR FLUID (BEAKER) (test jtob=378) Yellow Colorless, Straw RBC FLUID (BEAKER) (test bmfk=480) 6000 /cu mm <=1 ADJUSTED WBC FLUID (BEAKER) (test evrv=4872) 252 /cu mm <=5 LINING CELLS (BEAKER) (test ytpq=9537) 28 /cu mm <=1 NEUTROPHILS FLUID (BEAKER) (test jqxz=6094) 36 % LYMPHS FLUID (BEAKER) (test wziz=326) 22 % MONO/MACROPHAGE FLUID (BEAKER) (test xdnp=454) 42 % EOSINOPHILS FLUID (BEAKER) (test vmpy=244) 0 % BASO FLUID (BEAKER) (test wgqt=669) 0 % CONTAINER BODY FLUID (BEAKER) (test hbki=4460) EDTA Tube RESPIRATORY PANEL [id number] 12:27:00 Test Item Value Reference Range Comments HUMAN METAPNEUMOVIRUS (BEAKER) (test Not detected Not detected, Equivocal qzlk=0564) RHINOVIRUS (BEAKER) (test okyq=7492) Not detected Not detected, Equivocal INFLUENZA A (BEAKER) (test ivtp=9574) Not detected Not detected, Equivocal INFLUENZA A (NO SUBTYPE) (test Not detected, Equivocal fpfw=6734) INFLUENZA A SUBTYPE H1 (BEAKER) (test Not detected, Equivocal uosx=5317) INFLUENZA A SUBTYPE H3 (BEAKER) (test Not detected, Equivocal skfv=2837) INFLUENZA A SUBTYPE H1-2009 (BEAKER) Not detected, Equivocal (test cmyk=3531) INFLUENZA B (BEAKER) (test gaff=2278) Not detected Not detected, Equivocal RESPIRATORY SYNCYTIAL VIRUS (BEAKER) Not detected Not detected, Equivocal (test soua=0234) PARAINFLUENZA VIRUS 1 (BEAKER) (test Not detected Not detected, Equivocal xgav=1656) PARAINFLUENZA VIRUS 2 (BEAKER) (test Not detected Not detected, Equivocal stag=3320) PARAINFLUENZA VIRUS 3 (BEAKER) (test Not detected Not detected, Equivocal brcd=2838) PARAINFLUENZA VIRUS 4 (BEAKER) (test Not detected Not detected, Equivocal fydp=9926) ADENOVIRUS (BEAKER) (test quji=5767) Not detected Not detected, Equivocal CORONAVIRUS 229E (BEAKER) (test Not detected Not detected, Equivocal unmo=9650) CORONAVIRUS HKU1 (BEAKER) (test Not detected Not detected, Equivocal exqj=9301) CORONAVIRUS NL63 (BEAKER) (test Not detected Not detected, Equivocal asjj=0413) CORONAVIRUS OC43 (BEAKER) (test Not detected Not detected, Equivocal bbhz=6906) BORDETELLA PERTUSSIS (BEAKER) (test Not detected Not detected, Equivocal wojd=3202) CHLAMYDOPHILA PNEUMONIAE (BEAKER) (test Not detected Not detected, Equivocal nmxq=9728) MYCOPLASMA PNEUMONIAE (BEAKER) (test Not detected Not detected, Equivocal kkhk=3129) Other viruses and bacteria not targeted by this PCR panel cannot be excluded; therefore clinical correlation and follow up of serology, culture results, and other molecular studies is required. The results are not intended to be used as the sole means for clinical diagnosis or patient management decisions. This sample was tested at the [facility] using the Fluid Respiratory Panel. It is FDA cleared and has been verified and approved by the [facility] for clinical use on nasopharyngeal swab specimens.The performance of the FilmArrayRP has not been established in individuals who received influenza vaccine. Recent administration ofa nasal influenza vaccine may cause false positive results for Influenza A and/orInfluenza B.POCT-GLUCOSE [id number] 12:16:00 Test Item Value Reference Range Comments POC-GLUCOSE METER (BEAKER) 196 mg/dL 70-110 TESTED AT [facility] [address] [facility] (test vyod=4374) [facility] [address] RESPIRATORY PANEL [id number] 10:59:00 Test Item Value Reference Range Comments HUMAN METAPNEUMOVIRUS (BEAKER) (test Not detected Not detected, Equivocal ycvs=9973) RHINOVIRUS (BEAKER) (test eazr=5169) Not detected Not detected, Equivocal INFLUENZA A (BEAKER) (test ctvf=9842) Not detected Not detected, Equivocal INFLUENZA A (NO SUBTYPE) (test Not detected, Equivocal arbs=4910) INFLUENZA A SUBTYPE H1 (BEAKER) (test Not detected, Equivocal ufgw=3576) INFLUENZA A SUBTYPE H3 (BEAKER) (test Not detected, Equivocal sixt=2194) INFLUENZA A SUBTYPE H1-2009 (BEAKER) Not detected, Equivocal (test kytl=2433) INFLUENZA B (BEAKER) (test ksia=7515) Not detected Not detected, Equivocal RESPIRATORY SYNCYTIAL VIRUS (BEAKER) Not detected Not detected, Equivocal (test oasz=1203) PARAINFLUENZA VIRUS 1 (BEAKER) (test Not detected Not detected, Equivocal avqx=5142) PARAINFLUENZA VIRUS 2 (BEAKER) (test Not detected Not detected, Equivocal dlnf=4882) PARAINFLUENZA VIRUS 3 (BEAKER) (test Not detected Not detected, Equivocal shbu=9139) PARAINFLUENZA VIRUS 4 (BEAKER) (test Not detected Not detected, Equivocal llqt=5038) ADENOVIRUS (BEAKER) (test ijnp=3198) Not detected Not detected, Equivocal CORONAVIRUS 229E (BEAKER) (test Not detected Not detected, Equivocal cmav=0946) CORONAVIRUS HKU1 (BEAKER) (test Not detected Not detected, Equivocal duom=8456) CORONAVIRUS NL63 (BEAKER) (test Not detected Not detected, Equivocal nhtb=4628) CORONAVIRUS OC43 (BEAKER) (test Not detected Not detected, Equivocal hdlt=5477) BORDETELLA PERTUSSIS (BEAKER) (test Not detected Not detected, Equivocal ixmk=6253) CHLAMYDOPHILA PNEUMONIAE (BEAKER) (test Not detected Not detected, Equivocal pplo=4155) MYCOPLASMA PNEUMONIAE (BEAKER) (test Not detected Not detected, Equivocal mqcy=5654) Other viruses and bacteria not targeted by this PCR panel cannot be excluded; therefore clinical correlation and follow up of serology, culture results, and other molecular studies is required. The results are not intended to be used as the sole means for clinical diagnosis or patient management decisions. This sample was tested at the [facility] using the Precision VenturesArray Respiratory Panel. It is FDA cleared and has been verified and approved by the [facility] for clinical use on nasopharyngeal swab specimens.The performance of the FilmArrayRP has not been established in individuals who received influenza vaccine. Recent administration ofa nasal influenza vaccine may cause false positive results for Influenza A and/orInfluenza B.POCT-GLUCOSE [id number] 08:15:00 Test Item Value Reference Range Comments POC-GLUCOSE METER ([facility]) 184 mg/dL 70-110 TESTED AT [facility] [address] (test fxcq=2813) [facility] [address] CBC W/PLT COUNT & AUTO [id number] 07:49:00 Test Item Value Reference Range Comments WHITE BLOOD CELL COUNT (BEAKER) (test fzjc=941) 7.2 K/ L 3.5-10.5 RED BLOOD CELL COUNT (BEAKER) (test hlda=810) 2.66 M/ L 4.63-6.08 HEMOGLOBIN (BEAKER) (test kxbt=658) 8.9 GM/DL 13.7-17.5 HEMATOCRIT (BEAKER) (test xnjz=501) 27.2 % 40.1-51.0 MEAN CORPUSCULAR VOLUME (BEAKER) (test gbql=354) 102.3 fL 79.0-92.2 MEAN CORPUSCULAR HEMOGLOBIN (BEAKER) (test 33.5 pg 25.7-32.2 sydy=852) MEAN CORPUSCULAR HEMOGLOBIN CONC (BEAKER) (test 32.7 GM/DL 32.3-36.5 ntms=177) RED CELL DISTRIBUTION WIDTH (BEAKER) (test 14.5 % 11.6-14.4 anoo=819) PLATELET COUNT (BEAKER) (test qvuo=859) 45 K/CU MM 150-450 MEAN PLATELET VOLUME (BEAKER) (test flfa=924) 10.0 fL 9.4-12.4 NUCLEATED RED BLOOD CELLS (BEAKER) (test 0 /100 WBC 0-0 qasr=378) (CELLAVISION MANUAL DIFF)2018-10-29 07:49:00 Test Item Value Reference Range Comments NEUTROPHILS - REL (CELLAVISION)(BEAKER) (test 78 % ngvu=4099) LYMPHOCYTES - REL (CELLAVISION)(BEAKER) (test 16 % nyjr=2815) MONOCYTES - REL (CELLAVISION)(BEAKER) (test 3 % zjao=3030) EOSINOPHILS - REL (CELLAVISION)(BEAKER) (test 2 % aijf=7282) BASOPHILS - REL (CELLAVISION)(BEAKER) (test 1 % jvdx=2820) NEUTROPHILS - ABS (CELLAVISION)(BEAKER) (test 5.62 K/ul 1.78-5.38 utbv=2729) LYMPHOCYTES - ABS (CELLAVISION)(BEAKER) (test 1.15 K/ul 1.32-3.57 zozd=4539) MONOCYTES - ABS (CELLAVISION)(BEAKER) (test 0.22 K/uL 0.30-0.82 fiyd=8753) EOSINOPHILS - ABS (CELLAVISION)(BEAKER) (test 0.14 K/uL 0.04-0.54 cfka=4980) BASOPHILS - ABS (CELLAVISION)(BEAKER) (test 0.07 K/uL 0.01-0.08 hozy=3951) TOTAL COUNTED (BEAKER) (test tdua=5032) 100 RBC MORPHOLOGY (BEAKER) (test zqju=264) Normal PLT MORPHOLOGY (BEAKER) (test lhsn=990) Normal SMUDGE CELLS (BEAKER) (test szxe=2843) Present PLATELET CONCENTRATION (CELLAVISION)(BEAKER) (test Decreased ovks=2904) Received comment: User comments: Slide comments:COMPREHENSIVE METABOLIC [id number] 04:32:00 Test Item Value Reference Range Comments TOTAL PROTEIN (BEAKER) 5.3 gm/dL 6.0-8.3 (test noxl=294) ALBUMIN (BEAKER) (test 2.7 g/dL 3.5-5.0 prsn=7906) ALKALINE PHOSPHATASE 67 U/L 40-150 (BEAKER) (test smqp=678) BILIRUBIN TOTAL (BEAKER) 4.3 mg/dL 0.2-1.2 (test oeoo=431) SODIUM (BEAKER) (test 135 meq/L 136-145 mnwu=478) POTASSIUM (BEAKER) (test 3.6 meq/L 3.5-5.1 xokz=458) CHLORIDE (BEAKER) (test 108 meq/L 98-107 wglj=597) CO2 (BEAKER) (test 23 meq/L 22-29 jzcn=111) BLOOD UREA NITROGEN 12 mg/dL 7-21 (BEAKER) (test qzxt=060) CREATININE (BEAKER) (test 0.65 mg/dL 0.57-1.25 jmgt=762) GLUCOSE RANDOM (BEAKER) 118 mg/dL 70-105 (test xdpv=540) CALCIUM (BEAKER) (test 7.6 mg/dL 8.4-10.2 yadn=445) AST (SGOT) (BEAKER) (test 67 U/L 5-34 vzta=231) ALT (SGPT) (BEAKER) (test 28 U/L 6-55 wqrq=170) EGFR (BEAKER) (test 125 mL/min/1.73 sq ESTIMATED GFR IS NOT dtys=9252) m ACCURATE CREATININE CLEARANCE IN PREDICTING GLOMERULAR FILTRATION RATE. ESTIMATED GFR IS NOT APPLICABLE FOR DIALYSIS PATIENTS. Specimen moderately [id number] 04:31:00 Test Item Value Reference Range Comments MAGNESIUM (BEAKER) (test aegu=854) 1.9 mg/dL 1.6-2.6 LACTIC ACID, [id number] 04:18:00 Test Item Value Reference Range Comments LACTATE BLOOD VENOUS (2) (BEAKER) (test 1.3 mmol/L 0.5-2.2 rjab=0623) Specimen moderately ictericPOCT-GLUCOSE [id number] 18:00:00 Test Item Value Reference Range Comments POC-GLUCOSE METER (BEAKER) 121 mg/dL 70-110 TESTED AT [facility] [address] (test anwq=6710) [facility] [address] [id number] 12:39:00 Test Item Value Reference Range Comments PROCALCITONIN (BEAKER) (test omud=7075) 4.50 ng/mL <0.05 SEPSIS RISK (ng/mL)Low: 0.05-0.50Intermediate: 0.51-2.00High: & gt;=2.01POCT-GLUCOSE [id number] 12:20:00 Test Item Value Reference Range Comments POC-GLUCOSE METER ([facility]) 148 mg/dL 70-110 TESTED AT [facility] [address] (test kwbb=8032) [facility] [address] LEGIONELLA ANTIGEN, [id number] 12:13:00 Test Item Value Reference Range Comments L. PNEUMOPHILA SEROGP 1 Negative - see Negative for L. UR AG ([facility]) (test comment pneumophila serogroup 1 cstm=7225) antigen, suggesting no recent or current infection with this serogroup. Legionellosis cannot be ruled out since other serogroups and species may cause disease. STREP PNEUMONIAE [id number] 12:13:00 Test Item Value Reference Range Comments STREP PNEUMONIAE ANTIGEN Presumptive negative for Presumptive negative for (BEAKER) (test pneumococcal pneumonia - pneumococcal pneumonia - rqwg=2878) see comment see commen Presumptive negative for pneumococcal pneumonia, suggesting no current or recent pneumococcal infection. Infection due to S. pneumoniae cannot be ruled out since the antigen present in the sample may be below the detection limit of the test.RAPID INFLUENZA A&B [id number] 12:11:00 Test Item Value Reference Range Comments RAPID INFLUENZA A AG (BEAKER) (test Negative Negative, Inconclusive rkij=1409) RAPID INFLUENZA B AG (BEAKER) (test Negative Negative, Inconclusive ezjy=3958) LACTIC ACID, [id number] 10:51:00 Test Item Value Reference Range Comments LACTATE BLOOD VENOUS (2) (BEAKER) (test 3.0 mmol/L 0.5-2.2 wfmp=2515) Specimen moderately ictericU/S, ABDOMINAL, [id number] 07:19:00REFERRING : CHERELLE SALVADOR Please perform with dopplersReason for [...] MDReport Verified Date/Time: 10/28/2018 07:19:25 Reading Location: [address] Reading Room RAPID DRUG SCREEN, [id number] 07:07:00 Test Item Value Reference Range Comments BARBITURATE URINE (BEAKER) (test sbpf=741) Negative Negative BENZODIAZEPINE SCREEN URINE (BEAKER) (test Negative Negative fjiy=470) COCAINE (METAB.) SCREEN (BEAKER) (test duni=0906) Negative Negative METHADONE SCREEN (BEAKER) (test jvqd=2583) Negative Negative OPIATE SCREEN URINE (BEAKER) (test nirm=429) Positive Negative CANNABINOID SCREEN URINE (BEAKER) (test yscn=866) Negative Negative AMPH/METHAMPH SCREEN (BEAKER) (test hbkr=6982) Negative Negative PHENCYCLIDINE SCREEN URINE (BEAKER) (test qrrl=420) Negative Negative DRUG CUTOFF CONC.Cocaine 300 ng/mL Cannabinoid 50 ng/mL Benzodiazepine 200 ng/mLBarbiturate 200 ng/ mLPhencyclidine 25 ng/mLOpiate 300 ng/mLMethadone 300 ng/mLAmphetamine/ 1000 ng/mL MethamphetamineOxycodone 300 ng/mLThis assay provides an unconfirmed qualitative test result for the clinical management of patients in emergency situations. Chain of custody not maintained. Some nfkq-hre-adtblby medications, as well as adulterants, may cause inaccurate results. Clinical correlation should be applied. A more comprehensive drug screen or confirmation of a detected drug may be performed upon request.CT, BRAIN, WITHOUT [id number] 06:42:00REFERRING MD: CHERELLE VEGAINAL REPORT CT, BRAIN, WITHOUT CONTRAST CLINICAL INDICATION: [...] Verified Date/Time: 10/28/2018 06:42:47 VITAMIN B12 AND [id number] 06:21:00 Test Item Value Reference Range Comments VITAMIN B12 (BEAKER) (test annz=483) 719 pg/mL 213-816 FOLATE (BEAKER) (test guam=982) 13.7 ng/mL >=7.0 TROPONIN [id number] 06:05:00 Test Item Value Reference Range Comments TROPONIN I (BEAKER) (test tqnr=673) 0.03 ng/mL 0.00-0.03 Troponin I (TnI) levels [...] Value Reference Range Comments IRON (BEAKER) (test ueaa=446) 104.0 ug/dL 40.0-160.0 TOTAL IRON BINDING CAPACITY (BEAKER) (test 119 ug/dL 250-450 wpsa=158) IRON % SATURATION (2) (BEAKER) (test pxnu=5480) 87 % 20-55 COMPREHENSIVE METABOLIC [id number] 05:44:00 Test Item Value Reference Range Comments TOTAL PROTEIN (BEAKER) 6.1 gm/dL 6.0-8.3 (test egwo=857) ALBUMIN (BEAKER) (test 3.1 g/dL 3.5-5.0 njlb=0240) ALKALINE PHOSPHATASE 90 U/L 40-150 (BEAKER) (test stiq=218) BILIRUBIN TOTAL (BEAKER) 5.2 mg/dL 0.2-1.2 (test inyx=126) SODIUM (BEAKER) (test 136 meq/L 136-145 uqnx=306) POTASSIUM (BEAKER) (test 4.1 meq/L 3.5-5.1 dbnt=980) CHLORIDE (BEAKER) (test 105 meq/L 98-107 obwv=266) CO2 (BEAKER) (test 22 meq/L 22-29 ciuy=514) BLOOD UREA NITROGEN 13 mg/dL 7-21 (BEAKER) (test hnqd=382) CREATININE (BEAKER) (test 1.01 mg/dL 0.57-1.25 sqwc=288) GLUCOSE RANDOM (BEAKER) 122 mg/dL 70-105 (test yzez=559) CALCIUM (BEAKER) (test 7.8 mg/dL 8.4-10.2 kowt=690) AST (SGOT) (BEAKER) (test 34 U/L 5-34 wdgh=036) ALT (SGPT) (BEAKER) (test 17 U/L 6-55 krmp=032) EGFR (BEAKER) (test 75 mL/min/1.73 sq m ESTIMATED GFR IS NOT qxlo=6743) ACCURATE CREATININE CLEARANCE IN PREDICTING GLOMERULAR FILTRATION RATE. ESTIMATED GFR IS NOT APPLICABLE FOR DIALYSIS PATIENTS. Specimen moderately [id number] 05:38:00 Test Item Value Reference Range Comments MAGNESIUM (BEAKER) (test axoo=533) 2.3 mg/dL 1.6-2.6 LACTIC ACID, [id number] 05:32:00 Test Item Value Reference Range Comments LACTATE BLOOD VENOUS (2) 4.1 mmol/L 0.5-2.2 Specimen slightly hemolyzed (BEAKER) (test amwp=8159) Specimen moderately ictericTROPONIN [id number] 02:28:00 Test Item Value Reference Range Comments TROPONIN I (BEAKER) (test fvah=155) 0.05 ng/mL 0.00-0.03 Troponin I (TnI) levels [...] disease, and persistent tachyarrhythmia.RAD, ABDOMEN/KUB, 1 VIEW [id number] 02 :04:00REFERRJB GOMEZ: CHERELLE SALVADOR Reason for exam:->NG tube placementFINAL [...] Day MDReport Verified Date/Time: 10/28/2018 02:04:20 PROTHROMBIN [id number] 01:58:00 Test Item Value Reference Range Comments PROTIME (BEAKER) (test ifbw=606) 18.8 seconds 11.9-14.2 INR (BEAKER) (test rqpq=001) 1.7 <=5.9 Effective 10/24/2018: PT Reference Range ChangeNew: 11.9-14.2 Previous: 11.7- 14.7RECOMMENDED COUMADIN/WARFARIN INR THERAPY RANGESSTANDARD DOSE: 2.0-3.0 Includes: PROPHYLAXIS for venous thrombosis, systemic embolization; TREATMENT for venous thrombosis and/or pulmonary embolus.HIGH RISK: Target INR is2.5-3.5 for patients wiht mechanical heart valves.CBC W/PLT COUNT & AUTO [id number] 01:45:00 Test Item Value Reference Range Comments WHITE BLOOD CELL COUNT (BEAKER) (test mcgj=926) 24.2 K/ L 3.5-10.5 RED BLOOD CELL COUNT (BEAKER) (test tvhf=997) 3.25 M/ L 4.63-6.08 HEMOGLOBIN (BEAKER) (test otzy=498) 11.0 GM/DL 13.7-17.5 HEMATOCRIT (BEAKER) (test ydgi=257) 33.0 % 40.1-51.0 MEAN CORPUSCULAR VOLUME (BEAKER) (test htsk=680) 101.5 fL 79.0-92.2 MEAN CORPUSCULAR HEMOGLOBIN (BEAKER) (test 33.8 pg 25.7-32.2 eruh=811) MEAN CORPUSCULAR HEMOGLOBIN CONC (BEAKER) (test 33.3 GM/DL 32.3-36.5 yttc=067) RED CELL DISTRIBUTION WIDTH (BEAKER) (test 14.4 % 11.6-14.4 wvue=569) PLATELET COUNT (BEAKER) (test liwu=215) 73 K/CU MM 150-450 MEAN PLATELET VOLUME (BEAKER) (test gtgv=690) 10.0 fL 9.4-12.4 NUCLEATED RED BLOOD CELLS (BEAKER) (test 0 /100 WBC 0-0 mbqb=339) (CELLAVISION MANUAL DIFF)2018-10-28 01:45:00 Test Item Value Reference Range Comments NEUTROPHILS - REL (CELLAVISION)(BEAKER) (test 88 % refc=7263) LYMPHOCYTES - REL (CELLAVISION)(BEAKER) (test 1 % tlfi=2875) MONOCYTES - REL (CELLAVISION)(BEAKER) (test 1 % ayqx=2346) BANDS - REL (CELLAVISION)(BEAKER) (test 10 % 0-10 xqre=6140) NEUTROPHILS - ABS (CELLAVISION)(BEAKER) (test 21.30 K/ul 1.78-5.38 bquh=6041) LYMPHOCYTES - ABS (CELLAVISION)(BEAKER) (test 0.24 K/ul 1.32-3.57 jbxo=2282) MONOCYTES - ABS (CELLAVISION)(BEAKER) (test 0.24 K/uL 0.30-0.82 glwa=8796) BANDS - ABS (CELLAVISION)(BEAKER) (test 2.42 K/uL 0.00-0.80 fkyx=2933) TOTAL COUNTED (BEAKER) (test ygfi=2169) 100 PLT MORPHOLOGY (BEAKER) (test bfrq=967) Normal SMUDGE CELLS (BEAKER) (test wecb=3576) Present ANISOCYTOSIS (BEAKER) (test zsqf=318) 1+ few MACROCYTES (BEAKER) (test qiso=135) 1+ few PLATELET CONCENTRATION (CELLAVISION)(BEAKER) Decreased (test ersc=4855) Received comment: User comments: Slide comments:URINALYSIS W/ REFLEX URINE [id number] 01:36:00 Test Item Value Reference Range Comments COLOR (BEAKER) (test gjjo=468) Yellow CLARITY (BEAKER) (test ngdd=271) Clear SPECIFIC GRAVITY UA (BEAKER) (test kofl=122) 1.034 1.001-1.035 PH UA (BEAKER) (test lmzm=504) 6.0 5.0-8.0 PROTEIN UA (BEAKER) (test beeu=076) Negative Negative GLUCOSE UA (BEAKER) (test osgo=351) Negative Negative KETONES UA (BEAKER) (test mzmk=445) Negative Negative BILIRUBIN UA (BEAKER) (test kagu=052) Negative Negative BLOOD UA (BEAKER) (test gfsp=904) Negative Negative NITRITE UA (BEAKER) (test haux=145) Negative Negative LEUKOCYTE ESTERASE UA (BEAKER) (test ywlz=321) Negative Negative UROBILINOGEN UA (BEAKER) (test gdfn=084) 2.0 mg/dL 0.2-1.0 RBC UA (BEAKER) (test vddr=311) < /HPF WBC UA (BEAKER) (test mnux=104) < /HPF SQUAMOUS EPITHELIAL (BEAKER) (test pupk=155) < /HPF SOURCE(BEAKER) (test gejb=8678) COMPREHENSIVE METABOLIC [id number] 01:16:00 Test Item Value Reference Range Comments TOTAL PROTEIN (BEAKER) 6.5 gm/dL 6.0-8.3 (test mrkz=121) ALBUMIN (BEAKER) (test 2.3 g/dL 3.5-5.0 ltmq=6506) ALKALINE PHOSPHATASE 134 U/L 40-150 (BEAKER) (test iyad=092) BILIRUBIN TOTAL (BEAKER) 4.9 mg/dL 0.2-1.2 (test ojzg=309) SODIUM (BEAKER) (test 135 meq/L 136-145 xfyx=093) POTASSIUM (BEAKER) (test 4.7 meq/L 3.5-5.1 qwqr=280) CHLORIDE (BEAKER) (test 105 meq/L 98-107 mtcc=570) CO2 (BEAKER) (test 24 meq/L 22-29 ikyn=713) BLOOD UREA NITROGEN 11 mg/dL 7-21 (BEAKER) (test khoh=203) CREATININE (BEAKER) (test 1.10 mg/dL 0.57-1.25 xbyo=436) GLUCOSE RANDOM (BEAKER) 115 mg/dL 70-105 (test zoxf=266) CALCIUM (BEAKER) (test 8.0 mg/dL 8.4-10.2 saga=848) AST (SGOT) (BEAKER) (test 39 U/L 5-34 pfgg=519) ALT (SGPT) (BEAKER) (test 22 U/L 6-55 chrv=657) EGFR (BEAKER) (test 68 mL/min/1.73 sq m ESTIMATED GFR IS NOT cixn=3537) ACCURATE CREATININE CLEARANCE IN PREDICTING GLOMERULAR FILTRATION RATE. ESTIMATED GFR IS NOT APPLICABLE FOR DIALYSIS PATIENTS. Specimen moderately [id number] 01:15:00 Test Item Value Reference Range Comments AMMONIA (BEAKER) (test pycb=327) 69 mol/L 18-72 LACTIC ACID, [id number] 01:08:00 Test Item Value Reference Range Comments LACTATE BLOOD VENOUS (2) (BEAKER) (test 3.2 mmol/L 0.5-2.2 gele=3378) Specimen moderately [id number] 01:08:00 Test Item Value Reference Range Comments MAGNESIUM (BEAKER) (test imob=262) 1.1 mg/dL 1.6-2.6 RAD, CHEST, 1 VIEW, NON [id number] 00:52:00REFERRING MD: CHERELLE SALVADOR Reason for exam:->sepsisShould [...] of an acute osseous abnormality. Signed: Alex Lynnort Verified Date/Time: 10/28/2018 00:52 :42 Reading Location: [address] Reading Room ACTIN (SMOOTH MUSCLE) ANTIBODY, [id number] 08:28:00 Test Item Value Reference Range Comments SCAN RESULT (test trei=[id number]) [id number] 08:27:00 Test Item Value Reference Range Comments SCAN RESULT (test cgyp=[id number]) NILS TITER AND [id number] 09:55:00 Test Item Value Reference Range Comments NILS TITER (BEAKER) (test zozw=8737) :160 NILS PATTERN (BEAKER) (test bajr=7118) Speckled ANTI-NUCLEAR ANTIBODY (NILS)2018-10-05 09:54:00 Test Item Value Reference Range Comments ANTI-NUCLEAR ANTIBODY (NILS) (BEAKER) (test Positive Negative ksiz=055) Test performed by IFA method.[id number] 10:54:00 Test Item Value Reference Range Comments FERRITIN (BEAKER) (test vkkm=278) 218 ng/mL 5-275 HEPATITIS A ANTIBODY, [id number] 10:18:00 Test Item Value Reference Range Comments HEPATITIS A IGG ANTIBODY (BEAKER) (test olxy=9713) Reactive Nonreactive ALPHA FETOPROTEIN (AFP), TUMOR [id number] 10:14:00 Test Item Value Reference Range Comments ALPHA-FETOPROTEIN (BEAKER) (test adky=6496) 3.5 ng/mL <10.0 HEPATITIS A ANTIBODY, [id number] 10:14:00 Test Item Value Reference Range Comments HEPATITIS A IGM ANTIBODY (BEAKER) (test Nonreactive Nonreactive wxan=865) HEPATITIS B CORE ANTIBODY, [id number] 10:14:00 Test Item Value Reference Range Comments HEPATITIS B CORE TOTAL ANTIBODY (BEAKER) (test Nonreactive Nonreactive pilg=785) HEPATITIS B SURFACE [id number] 09:42:00 Test Item Value Reference Range Comments HEPATITIS B SURFACE ANTIBODY (BEAKER) (test < mIU/mL <8.0 suzd=880) HEPATITIS C [id number] 09:37:00 Test Item Value Reference Range Comments HEPATITIS C ANTIBODY (BEAKER) (test ljoo=474) Reactive Nonreactive HEPATITIS B SURFACE [id number] 09:36:00 Test Item Value Reference Range Comments HEPATITIS B SURFACE ANTIGEN (2) (BEAKER) (test Nonreactive Nonreactive djry=3135) IRON, TIBC, % SAT. (WITHOUT FERRITIN)2018-10-04 09:14:00 Test Item Value Reference Range Comments IRON (BEAKER) (test lfhm=549) 83.0 ug/dL 40.0-160.0 TOTAL IRON BINDING CAPACITY (BEAKER) (test 204 ug/dL 250-450 xrkc=540) IRON % SATURATION (2) (BEAKER) (test scgk=5224) 41 % 20-55 [id number] 09:14:00 Test Item Value Reference Range Comments ALPHA-1 ANTITRYPSIN (BEAKER) (test kmir=270) 159.30 mg/dL 90.00-200.00 COMPREHENSIVE METABOLIC [id number] 09:10:00 Test Item Value Reference Range Comments TOTAL PROTEIN (BEAKER) 6.9 gm/dL 6.0-8.3 (test pikp=001) ALBUMIN (BEAKER) (test 2.8 g/dL 3.5-5.0 dxmq=5305) ALKALINE PHOSPHATASE 208 U/L 40-150 (BEAKER) (test ffjy=596) BILIRUBIN TOTAL (BEAKER) 2.9 mg/dL 0.2-1.2 (test kmhc=729) SODIUM (BEAKER) (test 134 meq/L 136-145 pbvb=291) POTASSIUM (BEAKER) (test 3.4 meq/L 3.5-5.1 fmtt=168) CHLORIDE (BEAKER) (test 101 meq/L 98-107 phrh=967) CO2 (BEAKER) (test 23 meq/L 22-29 spnf=951) BLOOD UREA NITROGEN 6 mg/dL 7-21 (BEAKER) (test lecq=677) CREATININE (BEAKER) (test 0.76 mg/dL 0.57-1.25 ioow=550) GLUCOSE RANDOM (BEAKER) 61 mg/dL 70-105 (test grta=284) CALCIUM (BEAKER) (test 8.3 mg/dL 8.4-10.2 mytc=405) AST (SGOT) (BEAKER) (test 50 U/L 5-34 vhve=859) ALT (SGPT) (BEAKER) (test 35 U/L 6-55 weso=114) EGFR (BEAKER) (test 104 mL/min/1.73 sq ESTIMATED GFR IS NOT gszh=5666) m ACCURATE CREATININE CLEARANCE IN PREDICTING GLOMERULAR FILTRATION RATE. ESTIMATED GFR IS NOT APPLICABLE FOR DIALYSIS PATIENTS. Specimen slightly ictericBILIRUBIN, [id number] 09:10:00 Test Item Value Reference Range Comments BILIRUBIN DIRECT (BEAKER) (test ewmo=234) 1.4 mg/dL 0.1-0.5 PROTHROMBIN TIME/[id number] 08:38:00 Test Item Value Reference Range Comments PROTIME (BEAKER) (test zsgw=748) 17.6 seconds 11.7-14.7 INR (BEAKER) (test zpnp=607) 1.5 <=5.9 RECOMMENDED COUMADIN/WARFARIN INR THERAPY RANGESSTANDARD DOSE: 2.0 - 3.0 Includes: PROPHYLAXIS forvenous thrombosis, systemic embolization; TREATMENT for venous thrombosis and/or pulmonary embolus.HIGH RISK: Target INR is 2.5-3.5 for patients with mechanical heart valves.CBC W/PLT COUNT & AUTO [id number] 08:35:00 Test Item Value Reference Range Comments WHITE BLOOD CELL COUNT (BEAKER) (test ciev=940) 6.1 K/ L 3.5-10.5 RED BLOOD CELL COUNT (BEAKER) (test qaud=928) 3.21 M/ L 4.63-6.08 HEMOGLOBIN (BEAKER) (test evfq=524) 10.8 GM/DL 13.7-17.5 HEMATOCRIT (BEAKER) (test rnjz=694) 34.6 % 40.1-51.0 MEAN CORPUSCULAR VOLUME (BEAKER) (test srru=382) 107.8 fL 79.0-92.2 MEAN CORPUSCULAR HEMOGLOBIN (BEAKER) (test 33.6 pg 25.7-32.2 ommq=022) MEAN CORPUSCULAR HEMOGLOBIN CONC (BEAKER) (test 31.2 GM/DL 32.3-36.5 uwou=076) RED CELL DISTRIBUTION WIDTH (BEAKER) (test 14.4 % 11.6-14.4 vcwf=876) PLATELET COUNT (BEAKER) (test euee=501) 56 K/CU MM 150-450 MEAN PLATELET VOLUME (BEAKER) (test xpbz=005) 11.8 fL 9.4-12.4 NUCLEATED RED BLOOD CELLS (BEAKER) (test 0 /100 WBC 0-0 modh=302) NEUTROPHILS RELATIVE PERCENT (BEAKER) (test 52 % oenm=215) LYMPHOCYTES RELATIVE PERCENT (BEAKER) (test 31 % phyo=739) MONOCYTES RELATIVE PERCENT (BEAKER) (test 12 % tfkn=518) EOSINOPHILS RELATIVE PERCENT (BEAKER) (test 4 % vzfc=101) BASOPHILS RELATIVE PERCENT (BEAKER) (test 1 % bclr=782) NEUTROPHILS ABSOLUTE COUNT (BEAKER) (test 3.14 K/ L 1.78-5.38 htsw=320) LYMPHOCYTES ABSOLUTE COUNT (BEAKER) (test 1.88 K/ L 1.32-3.57 cqwi=733) MONOCYTES ABSOLUTE COUNT (BEAKER) (test uvrt=136) 0.75 K/ L 0.30-0.82 EOSINOPHILS ABSOLUTE COUNT (BEAKER) (test 0.24 K/ L 0.04-0.54 lhjs=937) BASOPHILS ABSOLUTE COUNT (BEAKER) (test cjdp=900) 0.05 K/ L 0.01-0.08 IMMATURE GRANULOCYTES-RELATIVE PERCENT (BEAKER) 1 % 0-1 (test tveg=9375)
== END 2019-04-03 10:41 | disposition home or self-care (01) ==
LOC: DS 08:31
PROVIDERS: ATTEND Internal Medicine Gastroenterology
DX: K70.31 Alcoholic cirrhosis of liver with ascites (principal); Z53.9 Procedure and treatment not carried out, unspecified reason
CPT/HCPCS: 36415; 76705; 85049; 85610; 85730

== ENCOUNTER 2019-04-09 06:50 | Day surgery (SDC) | payer OTHER ==
--- OUTSIDE RECORDS SUMMARY | 2019-04-09 06:54 | XMS REPORT ---
:1955 [facility] [address] [place] [address] Care Team Providers Name Role Phone BENNIE [...] Value Reference Range Comments ALPHA-FETOPROTEIN (BEAKER) (test dejf=7177) 2.7 ng/mL <10.0 BASIC METABOLIC [id number] 13:52:00 Test Item Value Reference Range Comments SODIUM (BEAKER) (test 134 meq/L 136-145 yjwx=428) POTASSIUM (BEAKER) (test 3.6 meq/L 3.5-5.1 zdzz=602) CHLORIDE (BEAKER) (test 102 meq/L 98-107 rado=006) CO2 (BEAKER) (test 25 meq/L 22-29 gtne=020) BLOOD UREA NITROGEN 7 mg/dL 7-21 (BEAKER) (test xfof=122) CREATININE (BEAKER) (test 0.78 mg/dL 0.57-1.25 imwg=325) GLUCOSE RANDOM (BEAKER) 167 mg/dL 70-105 (test mkoa=664) CALCIUM (BEAKER) (test 8.5 mg/dL 8.4-10.2 iqab=917) EGFR (BEAKER) (test 101 mL/min/1.73 sq m ESTIMATED GFR IS NOT abkj=6333) ACCURATE CREATININE CLEARANCE IN PREDICTING GLOMERULAR FILTRATION RATE. ESTIMATED GFR IS NOT APPLICABLE FOR DIALYSIS PATIENTS. Specimen slightly ictericHEPATIC FUNCTION [id number] 13:52:00 Test Item Value Reference Range Comments TOTAL PROTEIN (BEAKER) (test jyvi=479) 6.8 gm/dL 6.0-8.3 ALBUMIN (BEAKER) (test uduh=3019) 2.5 g/dL 3.5-5.0 BILIRUBIN TOTAL (BEAKER) (test dyby=649) 3.1 mg/dL 0.2-1.2 BILIRUBIN DIRECT (BEAKER) (test crmj=770) 1.4 mg/dL 0.1-0.5 ALKALINE PHOSPHATASE (BEAKER) (test jlzq=849) 207 U/L 40-150 AST (SGOT) (BEAKER) (test igjd=293) 44 U/L 5-34 ALT (SGPT) (BEAKER) (test aygm=445) 24 U/L 6-55 Specimen slightly ictericPROTHROMBIN [id number] 13:49:00 Test Item Value Reference Range Comments PROTIME (BEAKER) (test rtbf=489) 16.9 seconds 11.9-14.2 INR (BEAKER) (test qwdq=432) 1.5 <=5.9 Effective 10/24/2018: PT Reference Range ChangeNew: 11.9-14.2 Previous: 11.7- 14.7RECOMMENDED COUMADIN/WARFARIN INR THERAPY RANGESSTANDARD DOSE: 2.0-3.0 Includes: PROPHYLAXIS for venous thrombosis, systemic embolization; TREATMENT for venous thrombosis and/or pulmonary embolus.HIGH RISK: Target INR is2.5-3.5 for patients wiht mechanical heart valves.CBC W/PLT COUNT & AUTO [id number] 13:35:00 Test Item Value Reference Range Comments WHITE BLOOD CELL COUNT (BEAKER) (test mmcl=641) 6.6 K/ L 3.5-10.5 RED BLOOD CELL COUNT (BEAKER) (test fwtd=981) 3.46 M/ L 4.63-6.08 HEMOGLOBIN (BEAKER) (test dckt=242) 10.7 GM/DL 13.7-17.5 HEMATOCRIT (BEAKER) (test mkdb=458) 32.3 % 40.1-51.0 MEAN CORPUSCULAR VOLUME (BEAKER) (test hfsq=472) 93.4 fL 79.0-92.2 MEAN CORPUSCULAR HEMOGLOBIN (BEAKER) (test 30.9 pg 25.7-32.2 nlqs=432) MEAN CORPUSCULAR HEMOGLOBIN CONC (BEAKER) (test 33.1 GM/DL 32.3-36.5 tzet=322) RED CELL DISTRIBUTION WIDTH (BEAKER) (test 14.4 % 11.6-14.4 mxcf=039) PLATELET COUNT (BEAKER) (test vnua=603) 60 K/CU MM 150-450 MEAN PLATELET VOLUME (BEAKER) (test ayqh=441) 10.8 fL 9.4-12.4 NUCLEATED RED BLOOD CELLS (BEAKER) (test 0 /100 WBC 0-0 zrpg=833) NEUTROPHILS RELATIVE PERCENT (BEAKER) (test 56 % ezna=406) LYMPHOCYTES RELATIVE PERCENT (BEAKER) (test 31 % tfij=836) MONOCYTES RELATIVE PERCENT (BEAKER) (test 10 % pvtz=400) EOSINOPHILS RELATIVE PERCENT (BEAKER) (test 3 % xyit=963) BASOPHILS RELATIVE PERCENT (BEAKER) (test 1 % nwyo=653) NEUTROPHILS ABSOLUTE COUNT (BEAKER) (test 3.66 K/ L 1.78-5.38 pwia=250) LYMPHOCYTES ABSOLUTE COUNT (BEAKER) (test 2.06 K/ L 1.32-3.57 jczx=071) MONOCYTES ABSOLUTE COUNT (BEAKER) (test bpzn=257) 0.63 K/ L 0.30-0.82 EOSINOPHILS ABSOLUTE COUNT (BEAKER) (test 0.18 K/ L 0.04-0.54 sabe=115) BASOPHILS ABSOLUTE COUNT (BEAKER) (test dmvv=411) 0.04 K/ L 0.01-0.08 IMMATURE GRANULOCYTES-RELATIVE PERCENT (BEAKER) 0 % 0-1 (test kpej=1292) [id number] 14:59:00 Test Item Value Reference Range Comments T4 TOTAL (BEAKER) (test oera=835) 5.7 ug/dL 4.9-11.7 [id number] 13:20:00 Test Item Value Reference Range Comments T3 TOTAL (BEAKER) (test acrx=496) 113 ng/dL 48-159 CYTOMEGALOVIRUS ANTIBODY, [id number] 11:11:00 Test Item Value Reference Range Comments CYTOMEGALOVIRUS, IGG (BEAKER) (test wmkt=5888) Positive Negative, Equivocal CMV IgG Result Interpretation: </=0.8 Al Negative 0.9-1.0 Al Equivocal &gt ;/=1.1 Al PositiveCYTOMEGALOVIRUS ANTIBODY, [id number] 11:11:00 Test Item Value Reference Range Comments CYTOMEGALOVIRUS IGM ANTIBODY (BEAKER) (test Negative Negative, Equivocal mmhx=7648) CMV IgM Result Interpretation: </=0.8 Al Negative 0.9-1.0 Al Equivocal >/=1.1 Al PositiveEBV ANTIBODY, [id number] 11:08:00 Test Item Value Reference Range Comments EDENILSON FLORES VIRAL CAPSID ANTIGEN IGG (BEAKER) Positive Negative, Equivocal (test odzw=9940) Edenilson Flores Viral Capsid Antigen IgG Result Interpretation: </=0.8 Al Negative 0.9-1.0 Al Equivocal >/=1.1 Al PositiveEBV ANTIBODY, [id number] 11:08:00 Test Item Value Reference Range Comments EDENILSON FLORES VIRAL CAPSID ANTIGEN IGM (BEAKER) Negative Negative, Equivocal (test ugtr=8724) Edenilson Flores Viral Capsid Antigen IgM Result Interpretation: </=0.8 Al Negative 0.9-1.0 Al Equivocal >/=1.1 Al PositiveVARICELLA ZOSTER ANTIBODY , [id number] 11:08:00 Test Item Value Reference Range Comments VARICELLA ZOSTER IGG (AL) (BEAKER) (test gnps=4459) > VARICELLA ZOSTER RESULT INTERPRETATIONS: <=0.8 Al Nonreactive: Presumed non-immune to VZV 0.9-1.0 Al Equivocal >=1.1 Al Reactive: Presumed immune to [id number] 13:11:00 Test Item Value Reference Range Comments ALPHA-1 ANTITRYPSIN (BEAKER) (test ppbv=725) 155.30 mg/dL 90.00-200.00 HEMOGLOBIN [id number] 13:08:00 Test Item Value Reference Range Comments HEMOGLOBIN A1C (BEAKER) (test vxyt=533) 6.4 % 4.3-6.1 HEPATITIS A ANTIBODY, [id number] 12:51:00 Test Item Value Reference Range Comments HEPATITIS A IGG ANTIBODY (BEAKER) (test tfyd=8537) Reactive Nonreactive HEPATITIS C [id number] 12:51:00 Test Item Value Reference Range Comments HEPATITIS C ANTIBODY (BEAKER) (test fpdr=697) Reactive Nonreactive [id number] 12:48:00 Test Item Value Reference Range Comments PROSTATE SPECIFIC ANTIGEN (BEAKER) (test maos=035) 0.4 ng/mL 0.0-4.0 HIV-1 ANTIGEN WITH HIV-1/2 [id number] 12:48:00 Test Item Value Reference Range Comments HIV-1 ANTIGEN WITH HIV 1\T\2 ANTIBODY (2) Nonreactive Nonreactive (BEAKER) (test wdfi=5521) VITAMIN D, [id number] 12:46:00 Test Item Value Reference Range Comments VITAMIN D 25-OH (BEAKER) (test imis=8182) 7.7 ng/mL 6.6-49.9 Effective 03/08/2017: Reference Range ChangeNew: 6.6-49.9 ng/mL Previous: 13.0 -47.8 ng/mLRecommended Vitamin D Target Range: 30.0-40.0 ng/mLURINALYSIS W/ [id number] 11:55:00 Test Item Value Reference Range Comments COLOR (BEAKER) (test vcpt=366) Dark Yellow CLARITY (BEAKER) (test wpeo=252) Clear SPECIFIC GRAVITY UA (BEAKER) (test tovh=053) 1.015 1.001-1.035 PH UA (BEAKER) (test iqan=437) 6.5 5.0-8.0 PROTEIN UA (BEAKER) (test ohov=370) 20 mg/dL Negative GLUCOSE UA (BEAKER) (test ncpx=867) Negative Negative KETONES UA (BEAKER) (test kxan=611) Negative Negative BILIRUBIN UA (BEAKER) (test bmyq=889) Positive Negative BLOOD UA (BEAKER) (test uqln=976) Negative Negative NITRITE UA (BEAKER) (test nbzd=300) Negative Negative LEUKOCYTE ESTERASE UA (BEAKER) (test nexe=229) Negative Negative UROBILINOGEN UA (BEAKER) (test shky=705) 8.0 mg/dL 0.2-1.0 RBC UA (BEAKER) (test vgqd=587) < /HPF WBC UA (BEAKER) (test gvru=115) 1 /HPF MUCUS (BEAKER) (test wjse=7358) Rare SQUAMOUS EPITHELIAL (BEAKER) (test wvjt=809) 2 /HPF CASTS (BEAKER) (test sycc=9311) 2 /LPF SOURCE(BEAKER) (test fvmw=1601) CRYPTOCOCCAL [id number] 11:10:00 Test Item Value Reference Range Comments CRYPTOCOCCAL ANTIGEN, SERUM (BEAKER) (test Negative Negative, Interference bbam=5543) [id number] 10:59:00 Test Item Value Reference Range Comments THYROID STIMULATING HORMONE (BEAKER) (test 2.10 uIU/mL 0.35-4.94 woqu=938) [id number] 10:59:00 Test Item Value Reference Range Comments FERRITIN (BEAKER) (test mobc=963) 69 ng/mL 5-275 [id number] 10:51:00 Test Item Value Reference Range Comments RPR SCREEN (BEAKER) (test uxwd=276) Nonreactive Nonreactive [id number] 10:49:00 Test Item Value Reference Range Comments TRANSFERRIN (BEAKER) (test fqgy=062) 197 mg/dL 174-382 Specimen slightly [id number] 10:45:00 Test Item Value Reference Range Comments MAGNESIUM (BEAKER) (test jfdn=205) 1.5 mg/dL 1.6-2.6 [id number] 10:45:00 Test Item Value Reference Range Comments PHOSPHORUS (BEAKER) (test llwe=243) 3.6 mg/dL 2.3-4.7 URIC [id number] 10:45:00 Test Item Value Reference Range Comments URIC ACID (BEAKER) (test ftch=012) 4.8 mg/dL 2.6-7.2 Specimen slightly ictericCOMPREHENSIVE METABOLIC [id number] 10:45:00 Test Item Value Reference Range Comments TOTAL PROTEIN (BEAKER) 6.7 gm/dL 6.0-8.3 (test vykm=441) ALBUMIN (BEAKER) (test 2.6 g/dL 3.5-5.0 jogm=7880) ALKALINE PHOSPHATASE 194 U/L 40-150 (BEAKER) (test ihcd=980) BILIRUBIN TOTAL (BEAKER) 3.6 mg/dL 0.2-1.2 (test pgof=294) SODIUM (BEAKER) (test 136 meq/L 136-145 djop=431) POTASSIUM (BEAKER) (test 3.4 meq/L 3.5-5.1 lytj=591) CHLORIDE (BEAKER) (test 102 meq/L 98-107 oawk=871) CO2 (BEAKER) (test 29 meq/L 22-29 meco=467) BLOOD UREA NITROGEN 6 mg/dL 7-21 (BEAKER) (test cnti=438) CREATININE (BEAKER) (test 0.66 mg/dL 0.57-1.25 vemy=424) GLUCOSE RANDOM (BEAKER) 128 mg/dL 70-105 (test vlvi=007) CALCIUM (BEAKER) (test 8.2 mg/dL 8.4-10.2 yrur=173) AST (SGOT) (BEAKER) (test 40 U/L 5-34 rbcd=792) ALT (SGPT) (BEAKER) (test 24 U/L 6-55 kdnf=748) EGFR (BEAKER) (test 122 mL/min/1.73 sq ESTIMATED GFR IS NOT vdhv=7186) m ACCURATE CREATININE CLEARANCE IN PREDICTING GLOMERULAR FILTRATION RATE. ESTIMATED GFR IS NOT APPLICABLE FOR DIALYSIS PATIENTS. Specimen slightly ictericLIPID [id number] 10:45:00 Test Item Value Reference Range Comments TRIGLYCERIDES (BEAKER) (test jujj=629) 89 mg/dL CHOLESTEROL (BEAKER) (test swzn=927) 104 mg/dL HDL CHOLESTEROL (BEAKER) (test etlp=139) 29 mg/dL LDL CHOLESTEROL CALCULATED (BEAKER) (test 57 mg/dL tftn=298) Triglyceride Reference Range: Low Risk <150 Borderline 150- 199 High Risk 200-499 Very High Risk >=500Cholesterol Reference Range: Low Risk <200 Borderline 200-239 High Risk > 240HDL Cholesterol Reference Range: Low Risk >=60 High Risk <40LDL Cholesterol Reference Range: Optimal <100 Near Optimal 100-129 Borderline 130-159 High 160-189 Very High >=190 Specimen slightly ictericBILIRUBIN, [id number] 10:45:00 Test Item Value Reference Range Comments BILIRUBIN DIRECT (BEAKER) (test edtv=064) 1.6 mg/dL 0.1-0.5 GAMMA GLUTAMYL TRANSFERASE (GGT)[id number] 10:45:00 Test Item Value Reference Range Comments GAMMA GLUTAMYL TRANSFERASE (BEAKER) (test bjlu=426) 33 U/L 9-64 Specimen slightly [id number] 10:42:00 Test Item Value Reference Range Comments PARTIAL THROMBOPLASTIN TIME (BEAKER) (test 37.9 seconds 22.5-36.0 ekqr=353) PROTHROMBIN [id number] 10:36:00 Test Item Value Reference Range Comments PROTIME (BEAKER) (test olov=503) 17.8 seconds 11.9-14.2 INR (BEAKER) (test yaxe=151) 1.5 <=5.9 Effective 10/24/2018: PT Reference Range ChangeNew: 11.9-14.2 Previous: 11.7- 14.7RECOMMENDED COUMADIN/WARFARIN INR THERAPY RANGESSTANDARD DOSE: 2.0-3.0 Includes: PROPHYLAXIS for venous thrombosis, systemic embolization; TREATMENT for venous thrombosis and/or pulmonary embolus.HIGH RISK: Target INR is2.5-3.5 for patients wiht mechanical heart valves.[id number] 10:36:00 Test Item Value Reference Range Comments ETHANOL (BEAKER) (test uojk=574) < mg/dL <=10 [id number] 10:36:00 Test Item Value Reference Range Comments FIBRINOGEN LEVEL (BEAKER) (test erpo=245) 207 mg/dl 225-434 BLOOD GAS, [id number] 10:35:00 Test Item Value Reference Range Comments PH ARTERIAL (BEAKER) (test bbke=612) 7.50 7.35-7.45 PCO2 ARTERIAL (BEAKER) (test zgiq=079) 37 mmHg 35-45 PO2 ARTERIAL (BEAKER) (test vyee=611) 86 mmHg 80-90 O2 SATURATION ARTERIAL (BEAKER) (test zmeh=399) 97.2 % 96.0-97.0 HCO3 ARTERIAL (BEAKER) (test xgwn=952) 28 mmol/L 21-29 BASE EXCESS ARTERIAL (BEAKER) (test hnmn=078) 4.9 mmol/L -2.0-3.0 PATIENT TEMPERATURE (BEAKER) (test ypsw=1669) 37.0 C FIO2 (BEAKER) (test wuhs=1711) 21.0 % CBC W/PLT COUNT & AUTO [id number] 10:25:00 Test Item Value Reference Range Comments WHITE BLOOD CELL COUNT (BEAKER) (test flfr=797) 7.7 K/ L 3.5-10.5 RED BLOOD CELL COUNT (BEAKER) (test bclf=369) 3.26 M/ L 4.63-6.08 HEMOGLOBIN (BEAKER) (test hpot=917) 10.5 GM/DL 13.7-17.5 HEMATOCRIT (BEAKER) (test nfqj=424) 31.4 % 40.1-51.0 MEAN CORPUSCULAR VOLUME (BEAKER) (test rala=342) 96.3 fL 79.0-92.2 MEAN CORPUSCULAR HEMOGLOBIN (BEAKER) (test 32.2 pg 25.7-32.2 nodz=921) MEAN CORPUSCULAR HEMOGLOBIN CONC (BEAKER) (test 33.4 GM/DL 32.3-36.5 sqzw=476) RED CELL DISTRIBUTION WIDTH (BEAKER) (test 13.9 % 11.6-14.4 lmxy=193) PLATELET COUNT (BEAKER) (test umnz=990) 59 K/CU MM 150-450 MEAN PLATELET VOLUME (BEAKER) (test ckwx=517) 10.7 fL 9.4-12.4 NUCLEATED RED BLOOD CELLS (BEAKER) (test 0 /100 WBC 0-0 qncv=386) NEUTROPHILS RELATIVE PERCENT (BEAKER) (test 56 % ewig=785) LYMPHOCYTES RELATIVE PERCENT (BEAKER) (test 29 % tjrp=439) MONOCYTES RELATIVE PERCENT (BEAKER) (test 10 % riqm=879) EOSINOPHILS RELATIVE PERCENT (BEAKER) (test 3 % vxuy=316) BASOPHILS RELATIVE PERCENT (BEAKER) (test 1 % upsu=578) NEUTROPHILS ABSOLUTE COUNT (BEAKER) (test 4.32 K/ L 1.78-5.38 grmr=844) LYMPHOCYTES ABSOLUTE COUNT (BEAKER) (test 2.24 K/ L 1.32-3.57 qsap=187) MONOCYTES ABSOLUTE COUNT (BEAKER) (test okvt=578) 0.80 K/ L 0.30-0.82 EOSINOPHILS ABSOLUTE COUNT (BEAKER) (test 0.23 K/ L 0.04-0.54 xvyy=402) BASOPHILS ABSOLUTE COUNT (BEAKER) (test wxhe=054) 0.04 K/ L 0.01-0.08 IMMATURE GRANULOCYTES-RELATIVE PERCENT (BEAKER) 1 % 0-1 (test ctal=2812) CALCIUM, [id number] 10:20:00 Test Item Value Reference Range Comments CALCIUM IONIZED (BEAKER) (test ajke=787) 1.05 mmol/L 1.12-1.27 PH, BLOOD (BEAKER) (test qyot=2024) 7.41 RAD, MANDIBLE, MIN 4 [id number] 16:56:00REFERRING : CHERELLE SALVADOR Reason for Exam:->pretransplant liver evaluationFINAL REPORT TECHNIQUE: Minimum four views of the mandible. INDICATION: pretransplant liver evaluation. COMPARISON: None. FINDINGS:No fracture or dislocation.No periapical lucencies.Caries of a maxillary molar, side indeterminate.Mild degenerative disc changes at C4-C5, C5-C6, and C6-C7. IMPRESSION: No periapical lucency. Caries of a maxillary molar, side indeterminate. Signed:Isaías Hernandez Verified Date/Time: 12/19/2018 16:56: 31 Reading Location: [address] Radiology Reading Room RAD, CHEST, 2 [id number] 15:51:00REFERRING : CHERELLE SALVADOR Reason for [...] Hathawayort Verified Date/Time: 12/19/2018 15:51:17 [facility] Electronically signed by: FARZANEH HATHAWAY M.D. on 2018 03:51 PMMR, ABDOMEN, [id number] 14:51:00REFERRING : CHERELLE LEROYTFINAL REPORT TECHNIQUE: MRI [...] MDReport Verified Date/Time: 12/19/2018 14:51:24 Reading Location: [address] Radiology Reading Room [id number] 11:12:00 Test Item Value Reference Range Comments ETHANOL (BEAKER) (test qhod=646) < mg/dL <=10 BASIC METABOLIC [id number] 10:56:00 Test Item Value Reference Range Comments SODIUM (BEAKER) (test 135 meq/L 136-145 lyef=523) POTASSIUM (BEAKER) (test 3.8 meq/L 3.5-5.1 spxw=205) CHLORIDE (BEAKER) (test 102 meq/L 98-107 fyew=247) CO2 (BEAKER) (test 28 meq/L 22-29 stvu=286) BLOOD UREA NITROGEN 5 mg/dL 7-21 (BEAKER) (test sweg=900) CREATININE (BEAKER) (test 0.80 mg/dL 0.57-1.25 ixtg=463) GLUCOSE RANDOM (BEAKER) 237 mg/dL 70-105 (test digh=486) CALCIUM (BEAKER) (test 8.3 mg/dL 8.4-10.2 amxv=348) EGFR (BEAKER) (test 98 mL/min/1.73 sq m ESTIMATED GFR IS NOT mqey=6305) ACCURATE CREATININE CLEARANCE IN PREDICTING GLOMERULAR FILTRATION RATE. ESTIMATED GFR IS NOT APPLICABLE FOR DIALYSIS PATIENTS. Specimen moderately ictericHEPATIC FUNCTION [id number] 10:56:00 Test Item Value Reference Range Comments TOTAL PROTEIN (BEAKER) (test knmv=703) 7.0 gm/dL 6.0-8.3 ALBUMIN (BEAKER) (test uyni=9641) 2.7 g/dL 3.5-5.0 BILIRUBIN TOTAL (BEAKER) (test uavp=638) 3.8 mg/dL 0.2-1.2 BILIRUBIN DIRECT (BEAKER) (test rerv=249) 1.3 mg/dL 0.1-0.5 ALKALINE PHOSPHATASE (BEAKER) (test frlw=194) 186 U/L 40-150 AST (SGOT) (BEAKER) (test srdc=691) 43 U/L 5-34 ALT (SGPT) (BEAKER) (test eszw=723) 27 U/L 6-55 Specimen moderately ictericPROTHROMBIN [id number] 10:40:00 Test Item Value Reference Range Comments PROTIME (BEAKER) (test lvox=967) 18.4 seconds 11.9-14.2 INR (BEAKER) (test ttfe=907) 1.6 <=5.9 Effective 10/24/2018: PT Reference Range ChangeNew: 11.9-14.2 Previous: 11.7- 14.7RECOMMENDED COUMADIN/WARFARIN INR THERAPY RANGESSTANDARD DOSE: 2.0-3.0 Includes: PROPHYLAXIS for venous thrombosis, systemic embolization; TREATMENT for venous thrombosis and/or pulmonary embolus.HIGH RISK: Target INR is2.5-3.5 for patients wiht mechanical heart valves.CBC W/PLT COUNT & AUTO [id number] 10:38:00 Test Item Value Reference Range Comments WHITE BLOOD CELL COUNT (BEAKER) (test owsp=379) 5.1 K/ L 3.5-10.5 RED BLOOD CELL COUNT (BEAKER) (test xdsn=514) 3.19 M/ L 4.63-6.08 HEMOGLOBIN (BEAKER) (test rfke=874) 10.5 GM/DL 13.7-17.5 HEMATOCRIT (BEAKER) (test ghfp=745) 32.6 % 40.1-51.0 MEAN CORPUSCULAR VOLUME (BEAKER) (test hers=105) 102.2 fL 79.0-92.2 MEAN CORPUSCULAR HEMOGLOBIN (BEAKER) (test 32.9 pg 25.7-32.2 hlda=952) MEAN CORPUSCULAR HEMOGLOBIN CONC (BEAKER) (test 32.2 GM/DL 32.3-36.5 poly=639) RED CELL DISTRIBUTION WIDTH (BEAKER) (test 14.5 % 11.6-14.4 akwq=729) PLATELET COUNT (BEAKER) (test qryg=557) 59 K/CU MM 150-450 MEAN PLATELET VOLUME (BEAKER) (test okjm=814) 10.9 fL 9.4-12.4 NUCLEATED RED BLOOD CELLS (BEAKER) (test 0 /100 WBC 0-0 vhtp=928) NEUTROPHILS RELATIVE PERCENT (BEAKER) (test 44 % bdnn=885) LYMPHOCYTES RELATIVE PERCENT (BEAKER) (test 39 % ruqt=269) MONOCYTES RELATIVE PERCENT (BEAKER) (test 11 % eslf=251) EOSINOPHILS RELATIVE PERCENT (BEAKER) (test 5 % kiyj=473) BASOPHILS RELATIVE PERCENT (BEAKER) (test 1 % dbxh=352) NEUTROPHILS ABSOLUTE COUNT (BEAKER) (test 2.26 K/ L 1.78-5.38 lntl=405) LYMPHOCYTES ABSOLUTE COUNT (BEAKER) (test 1.99 K/ L 1.32-3.57 gkkx=196) MONOCYTES ABSOLUTE COUNT (BEAKER) (test hftk=637) 0.55 K/ L 0.30-0.82 EOSINOPHILS ABSOLUTE COUNT (BEAKER) (test 0.24 K/ L 0.04-0.54 hxxc=880) BASOPHILS ABSOLUTE COUNT (BEAKER) (test rvgb=621) 0.05 K/ L 0.01-0.08 IMMATURE GRANULOCYTES-RELATIVE PERCENT (BEAKER) 0 % 0-1 (test cyxz=3156) BLOOD [id number] 08:00:00 Test Item Value Reference Range Comments CULTURE (BEAKER) (test pqwg=5330) No growth in 5 days BLOOD [id number] 08:00:00 Test Item Value Reference Range Comments CULTURE (BEAKER) (test smyd=8480) No growth in 5 days BODY FLUID CULTURE + GRAM [id number] 12:20:00 Test Item Value Reference Range Comments CULTURE (BEAKER) (test hubt=6476) No growth GRAM STAIN RESULT (BEAKER) (test 1+ WBCs hvkb=3053) GRAM STAIN RESULT (BEAKER) (test No organisms seen tsas=70563) HEPATITIS C PCR, [id number] 08:32:00 Test Item Value Reference Range Comments HCV RESULT COMPONENT (BEAKER) HCV RNA not detected HCV RNA not detected (test lzov=0710) This test uses a Real-Time Polymerase Chain Reaction (RT-PCR) methodology and was performed using [employer] Ampliprep/KHOA TaqMan HCV test kit version 2.0 ( [employer]).Reportable range for this assay is 15 - 100,000, 000 IU per mL (1.18 - 8.00 Log IU/mL).POCT-GLUCOSE [id number] 08:09:00 Test Item Value Reference Range Comments POC-GLUCOSE METER (BEAKER) 117 mg/dL 70-110 TESTED AT [facility] [address] [facility] (test xduq=7961) [facility] [address] CALCIUM, [id number] 05:54:00 Test Item Value Reference Range Comments CALCIUM IONIZED (BEAKER) (test ngwu=986) 1.01 mmol/L 1.12-1.27 PH, BLOOD (BEAKER) (test bpxo=1429) 7.45 COMPREHENSIVE METABOLIC [id number] 05:07:00 Test Item Value Reference Range Comments TOTAL PROTEIN (BEAKER) 5.4 gm/dL 6.0-8.3 (test lhni=161) ALBUMIN (BEAKER) (test 2.5 g/dL 3.5-5.0 ugck=5556) ALKALINE PHOSPHATASE 100 U/L 40-150 (BEAKER) (test ndeh=337) BILIRUBIN TOTAL (BEAKER) 3.0 mg/dL 0.2-1.2 (test dxkb=773) SODIUM (BEAKER) (test 137 meq/L 136-145 avsg=788) POTASSIUM (BEAKER) (test 3.8 meq/L 3.5-5.1 amuo=854) CHLORIDE (BEAKER) (test 110 meq/L 98-107 jyhn=794) CO2 (BEAKER) (test 24 meq/L 22-29 hzue=967) BLOOD UREA NITROGEN 6 mg/dL 7-21 (BEAKER) (test lvou=907) CREATININE (BEAKER) (test 0.66 mg/dL 0.57-1.25 lejh=683) GLUCOSE RANDOM (BEAKER) 100 mg/dL 70-105 (test ybjv=684) CALCIUM (BEAKER) (test 7.7 mg/dL 8.4-10.2 dpic=156) AST (SGOT) (BEAKER) (test 65 U/L 5-34 bxgz=651) ALT (SGPT) (BEAKER) (test 31 U/L 6-55 lqbf=417) EGFR (BEAKER) (test 123 mL/min/1.73 sq ESTIMATED GFR IS NOT whto=4549) m ACCURATE CREATININE CLEARANCE IN PREDICTING GLOMERULAR FILTRATION RATE. ESTIMATED GFR IS NOT APPLICABLE FOR DIALYSIS PATIENTS. Specimen slightly [id number] 05:06:00 Test Item Value Reference Range Comments PHOSPHORUS (BEAKER) (test nmtu=340) 3.3 mg/dL 2.3-4.7 [id number] 05:06:00 Test Item Value Reference Range Comments MAGNESIUM (BEAKER) (test petd=268) 1.5 mg/dL 1.6-2.6 CBC W/PLT COUNT & AUTO [id number] 04:43:00 Test Item Value Reference Range Comments WHITE BLOOD CELL COUNT (BEAKER) (test mymx=057) 5.8 K/ L 3.5-10.5 RED BLOOD CELL COUNT (BEAKER) (test dmve=102) 2.70 M/ L 4.63-6.08 HEMOGLOBIN (BEAKER) (test seot=105) 9.0 GM/DL 13.7-17.5 HEMATOCRIT (BEAKER) (test gjxl=898) 27.8 % 40.1-51.0 MEAN CORPUSCULAR VOLUME (BEAKER) (test zpan=020) 103.0 fL 79.0-92.2 MEAN CORPUSCULAR HEMOGLOBIN (BEAKER) (test 33.3 pg 25.7-32.2 njxr=782) MEAN CORPUSCULAR HEMOGLOBIN CONC (BEAKER) (test 32.4 GM/DL 32.3-36.5 topx=848) RED CELL DISTRIBUTION WIDTH (BEAKER) (test 14.2 % 11.6-14.4 cgvi=040) PLATELET COUNT (BEAKER) (test clkz=850) 45 K/CU MM 150-450 MEAN PLATELET VOLUME (BEAKER) (test xoqg=954) 10.1 fL 9.4-12.4 NUCLEATED RED BLOOD CELLS (BEAKER) (test 0 /100 WBC 0-0 quoq=148) NEUTROPHILS RELATIVE PERCENT (BEAKER) (test 47 % bgvx=387) LYMPHOCYTES RELATIVE PERCENT (BEAKER) (test 35 % meoe=059) MONOCYTES RELATIVE PERCENT (BEAKER) (test 12 % sdat=280) EOSINOPHILS RELATIVE PERCENT (BEAKER) (test 4 % uqdt=007) BASOPHILS RELATIVE PERCENT (BEAKER) (test 1 % uakr=619) NEUTROPHILS ABSOLUTE COUNT (BEAKER) (test 2.68 K/ L 1.78-5.38 ysnt=483) LYMPHOCYTES ABSOLUTE COUNT (BEAKER) (test 2.03 K/ L 1.32-3.57 xtxs=008) MONOCYTES ABSOLUTE COUNT (BEAKER) (test zwro=644) 0.71 K/ L 0.30-0.82 EOSINOPHILS ABSOLUTE COUNT (BEAKER) (test 0.23 K/ L 0.04-0.54 qulj=530) BASOPHILS ABSOLUTE COUNT (BEAKER) (test jyfw=310) 0.03 K/ L 0.01-0.08 IMMATURE GRANULOCYTES-RELATIVE PERCENT (BEAKER) 1 % 0-1 (test upin=7112) POCT-GLUCOSE [id number] 21:35:00 Test Item Value Reference Range Comments POC-GLUCOSE METER (BEAKER) 154 mg/dL 70-110 TESTED AT [address] (test lusa=9119) [facility] [address] POCT-GLUCOSE [id number] 17:21:00 Test Item Value Reference Range Comments POC-GLUCOSE METER (BEAKER) 138 mg/dL 70-110 TESTED AT [address] (test dfvf=9906) [facility] [address] POCT-GLUCOSE [id number] 13:27:00 Test Item Value Reference Range Comments POC-GLUCOSE METER (BEAKER) 166 mg/dL 70-110 TESTED AT [address] (test efgq=0698) [facility] [address] CBC W/PLT COUNT & AUTO [id number] 12:00:00 Test Item Value Reference Range Comments WHITE BLOOD CELL COUNT (BEAKER) (test azvp=870) 6.0 K/ L 3.5-10.5 RED BLOOD CELL COUNT (BEAKER) (test hxst=450) 2.79 M/ L 4.63-6.08 HEMOGLOBIN (BEAKER) (test rxhs=267) 9.4 GM/DL 13.7-17.5 HEMATOCRIT (BEAKER) (test foeq=037) 28.2 % 40.1-51.0 MEAN CORPUSCULAR VOLUME (BEAKER) (test jvri=294) 101.1 fL 79.0-92.2 MEAN CORPUSCULAR HEMOGLOBIN (BEAKER) (test 33.7 pg 25.7-32.2 iufa=061) MEAN CORPUSCULAR HEMOGLOBIN CONC (BEAKER) (test 33.3 GM/DL 32.3-36.5 tmtn=172) RED CELL DISTRIBUTION WIDTH (BEAKER) (test 14.2 % 11.6-14.4 caun=059) PLATELET COUNT (BEAKER) (test pank=030) 47 K/CU MM 150-450 MEAN PLATELET VOLUME (BEAKER) (test nxme=883) 9.9 fL 9.4-12.4 NUCLEATED RED BLOOD CELLS (BEAKER) (test 0 /100 WBC 0-0 cjfn=279) (CELLAVISION MANUAL DIFF)2018-10-30 12:00:00 Test Item Value Reference Range Comments NEUTROPHILS - REL (CELLAVISION)(BEAKER) (test 64 % zyne=8558) LYMPHOCYTES - REL (CELLAVISION)(BEAKER) (test 28 % nqdq=1264) MONOCYTES - REL (CELLAVISION)(BEAKER) (test 5 % agzj=6616) EOSINOPHILS - REL (CELLAVISION)(BEAKER) (test 3 % xskr=7551) NEUTROPHILS - ABS (CELLAVISION)(BEAKER) (test 3.84 K/ul 1.78-5.38 ktxt=4759) LYMPHOCYTES - ABS (CELLAVISION)(BEAKER) (test 1.68 K/ul 1.32-3.57 fnrs=0427) MONOCYTES - ABS (CELLAVISION)(BEAKER) (test 0.30 K/uL 0.30-0.82 lkix=7033) EOSINOPHILS - ABS (CELLAVISION)(BEAKER) (test 0.18 K/uL 0.04-0.54 xdky=3704) TOTAL COUNTED (BEAKER) (test wccr=6437) 100 WBC MORPHOLOGY (BEAKER) (test rjwc=742) Normal PLT MORPHOLOGY (BEAKER) (test vuzf=137) Normal ANISOCYTOSIS (BEAKER) (test glbo=694) 1+ few MACROCYTES (BEAKER) (test vqhz=344) 1+ few ARTIFACT (CELLAVISION)(BEAKER) (test qlti=6490) Present PLATELET CONCENTRATION (CELLAVISION)(BEAKER) (test Decreased kybr=3113) Received comment: User comments: Slide comments:POCT-GLUCOSE [id number] 11: 52:00 Test Item Value Reference Range Comments POC-GLUCOSE METER (BEAKER) 180 mg/dL 70-110 TESTED AT [address] (test cxbr=7699) [place] [id number] POCT-GLUCOSE [id number] 08:09:00 Test Item Value Reference Range Comments POC-GLUCOSE METER (BEAKER) 115 mg/dL 70-110 TESTED AT [address] (test ymfi=8902) [place] [id number] COMPREHENSIVE METABOLIC [id number] 05:59:00 Test Item Value Reference Range Comments TOTAL PROTEIN (BEAKER) 5.4 gm/dL 6.0-8.3 (test hhhn=125) ALBUMIN (BEAKER) (test 2.6 g/dL 3.5-5.0 vpra=1143) ALKALINE PHOSPHATASE 79 U/L 40-150 (BEAKER) (test qtqw=222) BILIRUBIN TOTAL (BEAKER) 3.1 mg/dL 0.2-1.2 (test ypzz=580) SODIUM (BEAKER) (test 137 meq/L 136-145 qohp=954) POTASSIUM (BEAKER) (test 3.7 meq/L 3.5-5.1 irkz=986) CHLORIDE (BEAKER) (test 109 meq/L 98-107 hacq=592) CO2 (BEAKER) (test 23 meq/L 22-29 hvmz=699) BLOOD UREA NITROGEN 7 mg/dL 7-21 (BEAKER) (test qpss=347) CREATININE (BEAKER) (test 0.68 mg/dL 0.57-1.25 ymne=057) GLUCOSE RANDOM (BEAKER) 130 mg/dL 70-105 (test gzbz=743) CALCIUM (BEAKER) (test 7.6 mg/dL 8.4-10.2 xoyc=566) AST (SGOT) (BEAKER) (test 74 U/L 5-34 qvwc=645) ALT (SGPT) (BEAKER) (test 32 U/L 6-55 ydkc=996) EGFR (BEAKER) (test 119 mL/min/1.73 sq ESTIMATED GFR IS NOT mhvr=4631) m ACCURATE CREATININE CLEARANCE IN PREDICTING GLOMERULAR FILTRATION RATE. ESTIMATED GFR IS NOT APPLICABLE FOR DIALYSIS PATIENTS. Specimen slightly [id number] 05:57:00 Test Item Value Reference Range Comments MAGNESIUM (BEAKER) (test dmyv=342) 1.6 mg/dL 1.6-2.6 POCT-GLUCOSE [id number] 22:30:00 Test Item Value Reference Range Comments POC-GLUCOSE METER (BEAKER) 186 mg/dL 70-110 TESTED AT [facility] [address] (test zlke=5782) [facility] [address] POCT-GLUCOSE [id number] 18:33:00 Test Item Value Reference Range Comments POC-GLUCOSE METER (BEAKER) 117 mg/dL 70-110 TESTED AT [facility] [address] (test iekf=1156) [facility] [address] U/S, [id number] 17:34:00REFERRING : CHERELLE SALVADOR Please give 25g [...] 2% lidocaine anesthesia was administered. A 5 Omani catheter was advanced into the peritoneal cavity and 1300 cc of addison fluid was removed. The catheter was removed without immediate complication. Samples left with interstitial sent to the lab for analysis. IMPRESSION:Uncomplicated ultrasound-guided paracentesis with 1300 cc fluid removed. Signed: Mauricio Cullen MDReport Verified Date/Time: 10/29/2018 17:34: 00 Reading Location: [facility] [id number] Ultrasound Reading Room VANCOMYCIN LEVEL, [id number] 17:22:00 Test Item Value Reference Range Comments VANCOMYCIN TROUGH (BEAKER) (test zdix=124) 7.3 ug/mL 10.0-20.0 CBC W/PLT COUNT & AUTO [id number] 15:00:00 Test Item Value Reference Range Comments WHITE BLOOD CELL COUNT (BEAKER) (test sajk=615) 7.2 K/ L 3.5-10.5 RED BLOOD CELL COUNT (BEAKER) (test sldm=895) 2.76 M/ L 4.63-6.08 HEMOGLOBIN (BEAKER) (test rhmx=686) 9.2 GM/DL 13.7-17.5 HEMATOCRIT (BEAKER) (test bnbu=608) 28.9 % 40.1-51.0 MEAN CORPUSCULAR VOLUME (BEAKER) (test nkct=020) 104.7 fL 79.0-92.2 MEAN CORPUSCULAR HEMOGLOBIN (BEAKER) (test 33.3 pg 25.7-32.2 gdqa=643) MEAN CORPUSCULAR HEMOGLOBIN CONC (BEAKER) (test 31.8 GM/DL 32.3-36.5 cocd=986) RED CELL DISTRIBUTION WIDTH (BEAKER) (test 14.6 % 11.6-14.4 chll=302) PLATELET COUNT (BEAKER) (test ejhv=172) 44 K/CU MM 150-450 MEAN PLATELET VOLUME (BEAKER) (test pevk=609) 10.2 fL 9.4-12.4 NUCLEATED RED BLOOD CELLS (BEAKER) (test 0 /100 WBC 0-0 rzcu=650) NEUTROPHILS RELATIVE PERCENT (BEAKER) (test 53 % fubr=261) LYMPHOCYTES RELATIVE PERCENT (BEAKER) (test 31 % dnhn=631) MONOCYTES RELATIVE PERCENT (BEAKER) (test 12 % pqyu=036) EOSINOPHILS RELATIVE PERCENT (BEAKER) (test 3 % qjlr=169) BASOPHILS RELATIVE PERCENT (BEAKER) (test 1 % iofs=260) NEUTROPHILS ABSOLUTE COUNT (BEAKER) (test 3.83 K/ L 1.78-5.38 xxoh=009) LYMPHOCYTES ABSOLUTE COUNT (BEAKER) (test 2.20 K/ L 1.32-3.57 ymlb=831) MONOCYTES ABSOLUTE COUNT (BEAKER) (test ulis=232) 0.83 K/ L 0.30-0.82 EOSINOPHILS ABSOLUTE COUNT (BEAKER) (test 0.24 K/ L 0.04-0.54 cjis=812) BASOPHILS ABSOLUTE COUNT (BEAKER) (test vahw=468) 0.04 K/ L 0.01-0.08 IMMATURE GRANULOCYTES-RELATIVE PERCENT (BEAKER) 1 % 0-1 (test hhru=0999) BODY FLUID CELL COUNT WITH [id number] 13:45:00 Test Item Value Reference Range Comments APPEARANCE FLUID (BEAKER) (test sbsu=795) Hazy Clear COLOR FLUID (BEAKER) (test mjqw=129) Yellow Colorless, Straw RBC FLUID (BEAKER) (test uvtd=364) 6000 /cu mm <=1 ADJUSTED WBC FLUID (BEAKER) (test hvjt=0077) 252 /cu mm <=5 LINING CELLS (BEAKER) (test dvva=7467) 28 /cu mm <=1 NEUTROPHILS FLUID (BEAKER) (test ethj=0526) 36 % LYMPHS FLUID (BEAKER) (test htoq=641) 22 % MONO/MACROPHAGE FLUID (BEAKER) (test bflf=696) 42 % EOSINOPHILS FLUID (BEAKER) (test yiib=645) 0 % BASO FLUID (BEAKER) (test jrkq=210) 0 % CONTAINER BODY FLUID (BEAKER) (test cige=4314) EDTA Tube RESPIRATORY PANEL [id number] 12:27:00 Test Item Value Reference Range Comments HUMAN METAPNEUMOVIRUS (BEAKER) (test Not detected Not detected, Equivocal djzc=7276) RHINOVIRUS (BEAKER) (test dxyr=4631) Not detected Not detected, Equivocal INFLUENZA A (BEAKER) (test inks=2724) Not detected Not detected, Equivocal INFLUENZA A (NO SUBTYPE) (test Not detected, Equivocal cago=7715) INFLUENZA A SUBTYPE H1 (BEAKER) (test Not detected, Equivocal mlhf=9314) INFLUENZA A SUBTYPE H3 (BEAKER) (test Not detected, Equivocal uxwx=6546) INFLUENZA A SUBTYPE H1-2009 (BEAKER) Not detected, Equivocal (test hxol=1537) INFLUENZA B (BEAKER) (test anlb=4832) Not detected Not detected, Equivocal RESPIRATORY SYNCYTIAL VIRUS (BEAKER) Not detected Not detected, Equivocal (test jxkp=7272) PARAINFLUENZA VIRUS 1 (BEAKER) (test Not detected Not detected, Equivocal apog=0102) PARAINFLUENZA VIRUS 2 (BEAKER) (test Not detected Not detected, Equivocal bgxo=1739) PARAINFLUENZA VIRUS 3 (BEAKER) (test Not detected Not detected, Equivocal fxxl=6380) PARAINFLUENZA VIRUS 4 (BEAKER) (test Not detected Not detected, Equivocal fwne=3092) ADENOVIRUS (BEAKER) (test ymkt=5537) Not detected Not detected, Equivocal CORONAVIRUS 229E (BEAKER) (test Not detected Not detected, Equivocal hsrt=4946) CORONAVIRUS HKU1 (BEAKER) (test Not detected Not detected, Equivocal tiha=7441) CORONAVIRUS NL63 (BEAKER) (test Not detected Not detected, Equivocal gopx=4992) CORONAVIRUS OC43 (BEAKER) (test Not detected Not detected, Equivocal xcxn=3553) BORDETELLA PERTUSSIS (BEAKER) (test Not detected Not detected, Equivocal opxx=1506) CHLAMYDOPHILA PNEUMONIAE (BEAKER) (test Not detected Not detected, Equivocal bxau=8810) MYCOPLASMA PNEUMONIAE (BEAKER) (test Not detected Not detected, Equivocal iuch=3195) Other viruses and bacteria not targeted by this PCR panel cannot be excluded; therefore clinical correlation and follow up of serology, culture results, and other molecular studies is required. The results are not intended to be used as the sole means for clinical diagnosis or patient management decisions. This sample was tested at the [facility] using the [employer] Respiratory Panel. It is FDA cleared and has been verified and approved by the [facility] for clinical use on nasopharyngeal swab specimens.The performance of the FilmArrayRP has not been established in individuals who received influenza vaccine. Recent administration ofa nasal influenza vaccine may cause false positive results for Influenza A and/orInfluenza B.POCT-GLUCOSE [id number] 12:16:00 Test Item Value Reference Range Comments POC-GLUCOSE METER (BEAKER) 196 mg/dL 70-110 TESTED AT [facility] [address] (test fxxu=9242) [facility] [address] RESPIRATORY PANEL [id number] 10:59:00 Test Item Value Reference Range Comments HUMAN METAPNEUMOVIRUS (BEAKER) (test Not detected Not detected, Equivocal qbfe=7933) RHINOVIRUS (BEAKER) (test ohpf=8760) Not detected Not detected, Equivocal INFLUENZA A (BEAKER) (test juhp=7273) Not detected Not detected, Equivocal INFLUENZA A (NO SUBTYPE) (test Not detected, Equivocal jhzb=3085) INFLUENZA A SUBTYPE H1 (BEAKER) (test Not detected, Equivocal xjuy=6324) INFLUENZA A SUBTYPE H3 (BEAKER) (test Not detected, Equivocal muey=3871) INFLUENZA A SUBTYPE H1-2009 (BEAKER) Not detected, Equivocal (test wiim=1609) INFLUENZA B (BEAKER) (test ucdw=8133) Not detected Not detected, Equivocal RESPIRATORY SYNCYTIAL VIRUS (BEAKER) Not detected Not detected, Equivocal (test grgu=9748) PARAINFLUENZA VIRUS 1 (BEAKER) (test Not detected Not detected, Equivocal ahxl=3663) PARAINFLUENZA VIRUS 2 (BEAKER) (test Not detected Not detected, Equivocal xxso=1200) PARAINFLUENZA VIRUS 3 (BEAKER) (test Not detected Not detected, Equivocal gaky=8383) PARAINFLUENZA VIRUS 4 (BEAKER) (test Not detected Not detected, Equivocal trjv=0931) ADENOVIRUS (BEAKER) (test ctih=8242) Not detected Not detected, Equivocal CORONAVIRUS 229E (BEAKER) (test Not detected Not detected, Equivocal suru=9139) CORONAVIRUS HKU1 (BEAKER) (test Not detected Not detected, Equivocal nuup=4395) CORONAVIRUS NL63 (BEAKER) (test Not detected Not detected, Equivocal alql=8489) CORONAVIRUS OC43 (BEAKER) (test Not detected Not detected, Equivocal hdjb=2606) BORDETELLA PERTUSSIS (BEAKER) (test Not detected Not detected, Equivocal zjve=6511) CHLAMYDOPHILA PNEUMONIAE (BEAKER) (test Not detected Not detected, Equivocal taow=1719) MYCOPLASMA PNEUMONIAE (BEAKER) (test Not detected Not detected, Equivocal vuqk=4848) Other viruses and bacteria not targeted by this PCR panel cannot be excluded; therefore clinical correlation and follow up of serology, culture results, and other molecular studies is required. The results are not intended to be used as the sole means for clinical diagnosis or patient management decisions. This sample was tested at the [facility] using the [employer] Respiratory Panel. It is FDA cleared and has been verified and approved by the [facility] for clinical use on nasopharyngeal swab specimens.The performance of the FilmArrayRP has not been established in individuals who received influenza vaccine. Recent administration ofa nasal influenza vaccine may cause false positive results for Influenza A and/orInfluenza B.POCT-GLUCOSE [id number] 08:15:00 Test Item Value Reference Range Comments POC-GLUCOSE METER ([facility]) 184 mg/dL 70-110 TESTED AT [facility] [address] (test nend=3443) [facility] [address] CBC W/PLT COUNT & AUTO [id number] 07:49:00 Test Item Value Reference Range Comments WHITE BLOOD CELL COUNT (BEAKER) (test gdzp=120) 7.2 K/ L 3.5-10.5 RED BLOOD CELL COUNT (BEAKER) (test kwmd=559) 2.66 M/ L 4.63-6.08 HEMOGLOBIN (BEAKER) (test fxzk=866) 8.9 GM/DL 13.7-17.5 HEMATOCRIT (BEAKER) (test rano=023) 27.2 % 40.1-51.0 MEAN CORPUSCULAR VOLUME (BEAKER) (test frhi=359) 102.3 fL 79.0-92.2 MEAN CORPUSCULAR HEMOGLOBIN (BEAKER) (test 33.5 pg 25.7-32.2 xbgv=665) MEAN CORPUSCULAR HEMOGLOBIN CONC (BEAKER) (test 32.7 GM/DL 32.3-36.5 abuk=209) RED CELL DISTRIBUTION WIDTH (BEAKER) (test 14.5 % 11.6-14.4 dyaf=966) PLATELET COUNT (BEAKER) (test cwjx=534) 45 K/CU MM 150-450 MEAN PLATELET VOLUME (BEAKER) (test dyvu=547) 10.0 fL 9.4-12.4 NUCLEATED RED BLOOD CELLS (BEAKER) (test 0 /100 WBC 0-0 varp=296) (CELLAVISION MANUAL DIFF)2018-10-29 07:49:00 Test Item Value Reference Range Comments NEUTROPHILS - REL (CELLAVISION)(BEAKER) (test 78 % tbuy=0758) LYMPHOCYTES - REL (CELLAVISION)(BEAKER) (test 16 % tbqu=1504) MONOCYTES - REL (CELLAVISION)(BEAKER) (test 3 % qjur=2478) EOSINOPHILS - REL (CELLAVISION)(BEAKER) (test 2 % napd=6767) BASOPHILS - REL (CELLAVISION)(BEAKER) (test 1 % qrly=1897) NEUTROPHILS - ABS (CELLAVISION)(BEAKER) (test 5.62 K/ul 1.78-5.38 sjsd=9221) LYMPHOCYTES - ABS (CELLAVISION)(BEAKER) (test 1.15 K/ul 1.32-3.57 snqn=7190) MONOCYTES - ABS (CELLAVISION)(BEAKER) (test 0.22 K/uL 0.30-0.82 jtjs=0781) EOSINOPHILS - ABS (CELLAVISION)(BEAKER) (test 0.14 K/uL 0.04-0.54 vvvy=6709) BASOPHILS - ABS (CELLAVISION)(BEAKER) (test 0.07 K/uL 0.01-0.08 rgye=3690) TOTAL COUNTED (BEAKER) (test isnd=5680) 100 RBC MORPHOLOGY (BEAKER) (test gizc=108) Normal PLT MORPHOLOGY (BEAKER) (test pbhv=590) Normal SMUDGE CELLS (BEAKER) (test zujz=7659) Present PLATELET CONCENTRATION (CELLAVISION)(BEAKER) (test Decreased wgve=0172) Received comment: User comments: Slide comments:COMPREHENSIVE METABOLIC [id number] 04:32:00 Test Item Value Reference Range Comments TOTAL PROTEIN (BEAKER) 5.3 gm/dL 6.0-8.3 (test oxud=942) ALBUMIN (BEAKER) (test 2.7 g/dL 3.5-5.0 wplw=2655) ALKALINE PHOSPHATASE 67 U/L 40-150 (BEAKER) (test zzcl=128) BILIRUBIN TOTAL (BEAKER) 4.3 mg/dL 0.2-1.2 (test wrdd=299) SODIUM (BEAKER) (test 135 meq/L 136-145 nldv=840) POTASSIUM (BEAKER) (test 3.6 meq/L 3.5-5.1 jriy=215) CHLORIDE (BEAKER) (test 108 meq/L 98-107 hirn=119) CO2 (BEAKER) (test 23 meq/L 22-29 jqtg=480) BLOOD UREA NITROGEN 12 mg/dL 7-21 (BEAKER) (test hxqg=351) CREATININE (BEAKER) (test 0.65 mg/dL 0.57-1.25 qppo=251) GLUCOSE RANDOM (BEAKER) 118 mg/dL 70-105 (test kygg=880) CALCIUM (BEAKER) (test 7.6 mg/dL 8.4-10.2 xzmg=767) AST (SGOT) (BEAKER) (test 67 U/L 5-34 qpvy=278) ALT (SGPT) (BEAKER) (test 28 U/L 6-55 yvcl=118) EGFR (BEAKER) (test 125 mL/min/1.73 sq ESTIMATED GFR IS NOT bibe=2506) m ACCURATE CREATININE CLEARANCE IN PREDICTING GLOMERULAR FILTRATION RATE. ESTIMATED GFR IS NOT APPLICABLE FOR DIALYSIS PATIENTS. Specimen moderately [id number] 04:31:00 Test Item Value Reference Range Comments MAGNESIUM (BEAKER) (test jnqt=018) 1.9 mg/dL 1.6-2.6 LACTIC ACID, [id number] 04:18:00 Test Item Value Reference Range Comments LACTATE BLOOD VENOUS (2) (BEAKER) (test 1.3 mmol/L 0.5-2.2 vszs=1067) Specimen moderately ictericPOCT-GLUCOSE [id number] 18:00:00 Test Item Value Reference Range Comments POC-GLUCOSE METER (BEAKER) 121 mg/dL 70-110 TESTED AT [facility] [address] (test inks=5346) [facility] [address] [id number] 12:39:00 Test Item Value Reference Range Comments PROCALCITONIN (BEAKER) (test cjzr=5977) 4.50 ng/mL <0.05 SEPSIS RISK (ng/mL)Low: 0.05-0.50Intermediate: 0.51-2.00High: & gt;=2.01POCT-GLUCOSE [id number] 12:20:00 Test Item Value Reference Range Comments POC-GLUCOSE METER ([facility]) 148 mg/dL 70-110 TESTED AT [facility] [address] (test kkeg=1351) [facility] [address] LEGIONELLA ANTIGEN, [id number] 12:13:00 Test Item Value Reference Range Comments L. PNEUMOPHILA SEROGP 1 Negative - see Negative for L. UR AG ([facility]) (test comment pneumophila serogroup 1 yesk=9912) antigen, suggesting no recent or current infection with this serogroup. Legionellosis cannot be ruled out since other serogroups and species may cause disease. STREP PNEUMONIAE [id number] 12:13:00 Test Item Value Reference Range Comments STREP PNEUMONIAE ANTIGEN Presumptive negative for Presumptive negative for (BEAKER) (test pneumococcal pneumonia - pneumococcal pneumonia - ofoq=6211) see comment see commen Presumptive negative for pneumococcal pneumonia, suggesting no current or recent pneumococcal infection. Infection due to S. pneumoniae cannot be ruled out since the antigen present in the sample may be below the detection limit of the test.RAPID INFLUENZA A&B [id number] 12:11:00 Test Item Value Reference Range Comments RAPID INFLUENZA A AG (BEAKER) (test Negative Negative, Inconclusive tqrw=0850) RAPID INFLUENZA B AG (BEAKER) (test Negative Negative, Inconclusive pnvs=1616) LACTIC ACID, [id number] 10:51:00 Test Item Value Reference Range Comments LACTATE BLOOD VENOUS (2) (BEAKER) (test 3.0 mmol/L 0.5-2.2 vxtg=2456) Specimen moderately ictericU/S, ABDOMINAL, [id number] 07:19:00REFERRING : CHERELLE SALVADOR Please perform with [...] MDReport Verified Date/Time: 10/28/2018 07:19:25 Reading Location: [address] Reading Room RAPID DRUG SCREEN, [id number] 07:07:00 Test Item Value Reference Range Comments BARBITURATE URINE (BEAKER) (test rqef=794) Negative Negative BENZODIAZEPINE SCREEN URINE (BEAKER) (test Negative Negative ghve=501) COCAINE (METAB.) SCREEN (BEAKER) (test egaj=5084) Negative Negative METHADONE SCREEN (BEAKER) (test qisb=3429) Negative Negative OPIATE SCREEN URINE (BEAKER) (test npyu=630) Positive Negative CANNABINOID SCREEN URINE (BEAKER) (test gexe=553) Negative Negative AMPH/METHAMPH SCREEN (BEAKER) (test ybyp=0863) Negative Negative PHENCYCLIDINE SCREEN URINE (BEAKER) (test vscb=154) Negative Negative DRUG CUTOFF CONC.Cocaine 300 ng/mL Cannabinoid 50 ng/mL Benzodiazepine 200 ng/mLBarbiturate 200 ng/ mLPhencyclidine 25 ng/mLOpiate 300 ng/mLMethadone 300 ng/mLAmphetamine/ 1000 ng/mL MethamphetamineOxycodone 300 ng/mLThis assay provides an unconfirmed qualitative test result for the clinical management of patients in emergency situations. Chain of custody not maintained. Some fmww-dwt-rzybdgq medications, as well as adulterants, may cause inaccurate results. Clinical correlation should be applied. A more comprehensive drug screen or confirmation of a detected drug may be performed upon request.CT, BRAIN, WITHOUT [id number] 06:42:00REFERRING MD: CHERELLE VEGAINAL REPORT CT, BRAIN, [...] Verified Date/Time: 10/28/2018 06:42:47 VITAMIN B12 AND [id number] 06:21:00 Test Item Value Reference Range Comments VITAMIN B12 (BEAKER) (test jeef=529) 719 pg/mL 213-816 FOLATE (BEAKER) (test ahlz=085) 13.7 ng/mL >=7.0 TROPONIN [id number] 06:05:00 Test Item Value Reference Range Comments TROPONIN I (BEAKER) (test vzab=090) 0.03 ng/mL 0.00-0.03 Troponin I (TnI) levels [...] Value Reference Range Comments IRON (BEAKER) (test qsvl=490) 104.0 ug/dL 40.0-160.0 TOTAL IRON BINDING CAPACITY (BEAKER) (test 119 ug/dL 250-450 qxag=732) IRON % SATURATION (2) (BEAKER) (test xfts=3312) 87 % 20-55 COMPREHENSIVE METABOLIC [id number] 05:44:00 Test Item Value Reference Range Comments TOTAL PROTEIN (BEAKER) 6.1 gm/dL 6.0-8.3 (test odhm=066) ALBUMIN (BEAKER) (test 3.1 g/dL 3.5-5.0 euin=3721) ALKALINE PHOSPHATASE 90 U/L 40-150 (BEAKER) (test wkrs=811) BILIRUBIN TOTAL (BEAKER) 5.2 mg/dL 0.2-1.2 (test peke=651) SODIUM (BEAKER) (test 136 meq/L 136-145 kcqg=436) POTASSIUM (BEAKER) (test 4.1 meq/L 3.5-5.1 wcdm=327) CHLORIDE (BEAKER) (test 105 meq/L 98-107 tglc=377) CO2 (BEAKER) (test 22 meq/L 22-29 pqme=389) BLOOD UREA NITROGEN 13 mg/dL 7-21 (BEAKER) (test ltaw=444) CREATININE (BEAKER) (test 1.01 mg/dL 0.57-1.25 tukw=308) GLUCOSE RANDOM (BEAKER) 122 mg/dL 70-105 (test rqdg=912) CALCIUM (BEAKER) (test 7.8 mg/dL 8.4-10.2 nzqs=194) AST (SGOT) (BEAKER) (test 34 U/L 5-34 ykhs=636) ALT (SGPT) (BEAKER) (test 17 U/L 6-55 romh=966) EGFR (BEAKER) (test 75 mL/min/1.73 sq m ESTIMATED GFR IS NOT xazb=5647) ACCURATE CREATININE CLEARANCE IN PREDICTING GLOMERULAR FILTRATION RATE. ESTIMATED GFR IS NOT APPLICABLE FOR DIALYSIS PATIENTS. Specimen moderately [id number] 05:38:00 Test Item Value Reference Range Comments MAGNESIUM (BEAKER) (test gedb=619) 2.3 mg/dL 1.6-2.6 LACTIC ACID, [id number] 05:32:00 Test Item Value Reference Range Comments LACTATE BLOOD VENOUS (2) 4.1 mmol/L 0.5-2.2 Specimen slightly hemolyzed (BEAKER) (test oxrv=7127) Specimen moderately ictericTROPONIN [id number] 02:28:00 Test Item Value Reference Range Comments TROPONIN I (BEAKER) (test dftd=857) 0.05 ng/mL 0.00-0.03 Troponin I (TnI) levels [...] disease, and persistent tachyarrhythmia.RAD, ABDOMEN/KUB, 1 VIEW [id number] 02 :04:00REFERRJB GOMEZ: CHERELLE SALVADOR Reason for [...] Day MDReport Verified Date/Time: 10/28/2018 02:04:20 PROTHROMBIN TIME/[id number] 01:58:00 Test Item Value Reference Range Comments PROTIME (BEAKER) (test xiit=152) 18.8 seconds 11.9-14.2 INR (BEAKER) (test iisu=442) 1.7 <=5.9 Effective 10/24/2018: PT Reference Range ChangeNew: 11.9-14.2 Previous: 11.7- 14.7RECOMMENDED COUMADIN/WARFARIN INR THERAPY RANGESSTANDARD DOSE: 2.0-3.0 Includes: PROPHYLAXIS for venous thrombosis, systemic embolization; TREATMENT for venous thrombosis and/or pulmonary embolus.HIGH RISK: Target INR is2.5-3.5 for patients wiht mechanical heart valves.CBC W/PLT COUNT & AUTO [id number] 01:45:00 Test Item Value Reference Range Comments WHITE BLOOD CELL COUNT (BEAKER) (test iokb=549) 24.2 K/ L 3.5-10.5 RED BLOOD CELL COUNT (BEAKER) (test rrhv=004) 3.25 M/ L 4.63-6.08 HEMOGLOBIN (BEAKER) (test zqlw=500) 11.0 GM/DL 13.7-17.5 HEMATOCRIT (BEAKER) (test biyl=856) 33.0 % 40.1-51.0 MEAN CORPUSCULAR VOLUME (BEAKER) (test paae=267) 101.5 fL 79.0-92.2 MEAN CORPUSCULAR HEMOGLOBIN (BEAKER) (test 33.8 pg 25.7-32.2 yqre=157) MEAN CORPUSCULAR HEMOGLOBIN CONC (BEAKER) (test 33.3 GM/DL 32.3-36.5 krug=223) RED CELL DISTRIBUTION WIDTH (BEAKER) (test 14.4 % 11.6-14.4 nnjo=912) PLATELET COUNT (BEAKER) (test ntnu=536) 73 K/CU MM 150-450 MEAN PLATELET VOLUME (BEAKER) (test qzjb=678) 10.0 fL 9.4-12.4 NUCLEATED RED BLOOD CELLS (BEAKER) (test 0 /100 WBC 0-0 sojx=300) (CELLAVISION MANUAL DIFF)2018-10-28 01:45:00 Test Item Value Reference Range Comments NEUTROPHILS - REL (CELLAVISION)(BEAKER) (test 88 % tulz=0249) LYMPHOCYTES - REL (CELLAVISION)(BEAKER) (test 1 % hins=9827) MONOCYTES - REL (CELLAVISION)(BEAKER) (test 1 % anls=4363) BANDS - REL (CELLAVISION)(BEAKER) (test 10 % 0-10 dxjc=2506) NEUTROPHILS - ABS (CELLAVISION)(BEAKER) (test 21.30 K/ul 1.78-5.38 fnje=9625) LYMPHOCYTES - ABS (CELLAVISION)(BEAKER) (test 0.24 K/ul 1.32-3.57 dsok=6483) MONOCYTES - ABS (CELLAVISION)(BEAKER) (test 0.24 K/uL 0.30-0.82 viza=5143) BANDS - ABS (CELLAVISION)(BEAKER) (test 2.42 K/uL 0.00-0.80 gkse=0225) TOTAL COUNTED (BEAKER) (test nbdw=7647) 100 PLT MORPHOLOGY (BEAKER) (test fzoy=486) Normal SMUDGE CELLS (BEAKER) (test twyl=7410) Present ANISOCYTOSIS (BEAKER) (test uudz=962) 1+ few MACROCYTES (BEAKER) (test goeo=788) 1+ few PLATELET CONCENTRATION (CELLAVISION)(BEAKER) Decreased (test kjhu=0820) Received comment: User comments: Slide comments:URINALYSIS W/ REFLEX URINE [id number] 01:36:00 Test Item Value Reference Range Comments COLOR (BEAKER) (test sext=484) Yellow CLARITY (BEAKER) (test cnls=812) Clear SPECIFIC GRAVITY UA (BEAKER) (test voae=497) 1.034 1.001-1.035 PH UA (BEAKER) (test czwn=559) 6.0 5.0-8.0 PROTEIN UA (BEAKER) (test epqe=816) Negative Negative GLUCOSE UA (BEAKER) (test ctdq=546) Negative Negative KETONES UA (BEAKER) (test nxvg=092) Negative Negative BILIRUBIN UA (BEAKER) (test pkia=714) Negative Negative BLOOD UA (BEAKER) (test bzyp=005) Negative Negative NITRITE UA (BEAKER) (test omgi=077) Negative Negative LEUKOCYTE ESTERASE UA (BEAKER) (test yxyj=183) Negative Negative UROBILINOGEN UA (BEAKER) (test afgr=434) 2.0 mg/dL 0.2-1.0 RBC UA (BEAKER) (test pshp=230) < /HPF WBC UA (BEAKER) (test xkqx=303) < /HPF SQUAMOUS EPITHELIAL (BEAKER) (test yocv=481) < /HPF SOURCE(BEAKER) (test gsvw=2182) COMPREHENSIVE METABOLIC [id number] 01:16:00 Test Item Value Reference Range Comments TOTAL PROTEIN (BEAKER) 6.5 gm/dL 6.0-8.3 (test txgf=189) ALBUMIN (BEAKER) (test 2.3 g/dL 3.5-5.0 bdmw=9443) ALKALINE PHOSPHATASE 134 U/L 40-150 (BEAKER) (test igzx=505) BILIRUBIN TOTAL (BEAKER) 4.9 mg/dL 0.2-1.2 (test gqpx=968) SODIUM (BEAKER) (test 135 meq/L 136-145 jrzu=264) POTASSIUM (BEAKER) (test 4.7 meq/L 3.5-5.1 pofr=548) CHLORIDE (BEAKER) (test 105 meq/L 98-107 nlwn=000) CO2 (BEAKER) (test 24 meq/L 22-29 mpot=698) BLOOD UREA NITROGEN 11 mg/dL 7-21 (BEAKER) (test qhje=253) CREATININE (BEAKER) (test 1.10 mg/dL 0.57-1.25 vamh=614) GLUCOSE RANDOM (BEAKER) 115 mg/dL 70-105 (test aatk=702) CALCIUM (BEAKER) (test 8.0 mg/dL 8.4-10.2 xzuj=934) AST (SGOT) (BEAKER) (test 39 U/L 5-34 tqjw=629) ALT (SGPT) (BEAKER) (test 22 U/L 6-55 ppyz=795) EGFR (BEAKER) (test 68 mL/min/1.73 sq m ESTIMATED GFR IS NOT qovt=3310) ACCURATE CREATININE CLEARANCE IN PREDICTING GLOMERULAR FILTRATION RATE. ESTIMATED GFR IS NOT APPLICABLE FOR DIALYSIS PATIENTS. Specimen moderately [id number] 01:15:00 Test Item Value Reference Range Comments AMMONIA (BEAKER) (test llko=981) 69 mol/L 18-72 LACTIC ACID, [id number] 01:08:00 Test Item Value Reference Range Comments LACTATE BLOOD VENOUS (2) (BEAKER) (test 3.2 mmol/L 0.5-2.2 qvhm=9483) Specimen moderately [id number] 01:08:00 Test Item Value Reference Range Comments MAGNESIUM (BEAKER) (test mcpb=741) 1.1 mg/dL 1.6-2.6 RAD, CHEST, 1 VIEW, NON [id number] 00:52:00REFERRING MD: CHERELLE SALVADOR Reason for exam:->sepsisShould [...] Verified Date/Time: 10/28/2018 00:52 :42 Reading Location: [address] Reading Room ACTIN (SMOOTH MUSCLE) ANTIBODY, [id number] 08:28:00 Test Item Value Reference Range Comments SCAN RESULT (test ilnz=[id number]) [id number] 08:27:00 Test Item Value Reference Range Comments SCAN RESULT (test zzwd=[id number]) NILS TITER AND [id number] 09:55:00 Test Item Value Reference Range Comments NILS TITER (BEAKER) (test iskf=5403) :160 NILS PATTERN (BEAKER) (test moqs=1173) Speckled ANTI-NUCLEAR ANTIBODY (NILS)2018-10-05 09:54:00 Test Item Value Reference Range Comments ANTI-NUCLEAR ANTIBODY (NILS) (BEAKER) (test Positive Negative zsmm=679) Test performed by IFA method.[id number] 10:54:00 Test Item Value Reference Range Comments FERRITIN (BEAKER) (test kxjp=370) 218 ng/mL 5-275 HEPATITIS A ANTIBODY, [id number] 10:18:00 Test Item Value Reference Range Comments HEPATITIS A IGG ANTIBODY (BEAKER) (test zsfj=3838) Reactive Nonreactive ALPHA FETOPROTEIN (AFP), TUMOR [id number] 10:14:00 Test Item Value Reference Range Comments ALPHA-FETOPROTEIN (BEAKER) (test iear=6571) 3.5 ng/mL <10.0 HEPATITIS A ANTIBODY, [id number] 10:14:00 Test Item Value Reference Range Comments HEPATITIS A IGM ANTIBODY (BEAKER) (test Nonreactive Nonreactive nqwp=772) HEPATITIS B CORE ANTIBODY, [id number] 10:14:00 Test Item Value Reference Range Comments HEPATITIS B CORE TOTAL ANTIBODY (BEAKER) (test Nonreactive Nonreactive ekbn=529) HEPATITIS B SURFACE [id number] 09:42:00 Test Item Value Reference Range Comments HEPATITIS B SURFACE ANTIBODY (BEAKER) (test < mIU/mL <8.0 wfbd=259) HEPATITIS C [id number] 09:37:00 Test Item Value Reference Range Comments HEPATITIS C ANTIBODY (BEAKER) (test urpj=873) Reactive Nonreactive HEPATITIS B SURFACE [id number] 09:36:00 Test Item Value Reference Range Comments HEPATITIS B SURFACE ANTIGEN (2) (BEAKER) (test Nonreactive Nonreactive fxff=5620) IRON, TIBC, % SAT. (WITHOUT FERRITIN)2018-10-04 09:14:00 Test Item Value Reference Range Comments IRON (BEAKER) (test gebi=803) 83.0 ug/dL 40.0-160.0 TOTAL IRON BINDING CAPACITY (BEAKER) (test 204 ug/dL 250-450 lvhu=857) IRON % SATURATION (2) (BEAKER) (test iqtc=4093) 41 % 20-55 [id number] 09:14:00 Test Item Value Reference Range Comments ALPHA-1 ANTITRYPSIN (BEAKER) (test ykwn=388) 159.30 mg/dL 90.00-200.00 COMPREHENSIVE METABOLIC [id number] 09:10:00 Test Item Value Reference Range Comments TOTAL PROTEIN (BEAKER) 6.9 gm/dL 6.0-8.3 (test nqoq=113) ALBUMIN (BEAKER) (test 2.8 g/dL 3.5-5.0 xtqh=7560) ALKALINE PHOSPHATASE 208 U/L 40-150 (BEAKER) (test qkqe=373) BILIRUBIN TOTAL (BEAKER) 2.9 mg/dL 0.2-1.2 (test zgsc=382) SODIUM (BEAKER) (test 134 meq/L 136-145 qyjq=526) POTASSIUM (BEAKER) (test 3.4 meq/L 3.5-5.1 yheb=833) CHLORIDE (BEAKER) (test 101 meq/L 98-107 tjgv=939) CO2 (BEAKER) (test 23 meq/L 22-29 ytrq=542) BLOOD UREA NITROGEN 6 mg/dL 7-21 (BEAKER) (test glvo=205) CREATININE (BEAKER) (test 0.76 mg/dL 0.57-1.25 dcdr=101) GLUCOSE RANDOM (BEAKER) 61 mg/dL 70-105 (test mnnl=212) CALCIUM (BEAKER) (test 8.3 mg/dL 8.4-10.2 inxl=753) AST (SGOT) (BEAKER) (test 50 U/L 5-34 hhly=107) ALT (SGPT) (BEAKER) (test 35 U/L 6-55 vgkc=454) EGFR (BEAKER) (test 104 mL/min/1.73 sq ESTIMATED GFR IS NOT hpak=5053) m ACCURATE CREATININE CLEARANCE IN PREDICTING GLOMERULAR FILTRATION RATE. ESTIMATED GFR IS NOT APPLICABLE FOR DIALYSIS PATIENTS. Specimen slightly ictericBILIRUBIN, [id number] 09:10:00 Test Item Value Reference Range Comments BILIRUBIN DIRECT (BEAKER) (test kbvi=480) 1.4 mg/dL 0.1-0.5 PROTHROMBIN [id number] 08:38:00 Test Item Value Reference Range Comments PROTIME (BEAKER) (test opkc=015) 17.6 seconds 11.7-14.7 INR (BEAKER) (test pffu=172) 1.5 <=5.9 RECOMMENDED COUMADIN/WARFARIN INR THERAPY RANGESSTANDARD DOSE: 2.0 - 3.0 Includes: PROPHYLAXIS forvenous thrombosis, systemic embolization; TREATMENT for venous thrombosis and/or pulmonary embolus.HIGH RISK: Target INR is 2.5-3.5 for patients with mechanical heart valves.CBC W/PLT COUNT & AUTO [id number] 08:35:00 Test Item Value Reference Range Comments WHITE BLOOD CELL COUNT (BEAKER) (test kjhe=931) 6.1 K/ L 3.5-10.5 RED BLOOD CELL COUNT (BEAKER) (test iwiz=505) 3.21 M/ L 4.63-6.08 HEMOGLOBIN (BEAKER) (test plpz=584) 10.8 GM/DL 13.7-17.5 HEMATOCRIT (BEAKER) (test gkyl=748) 34.6 % 40.1-51.0 MEAN CORPUSCULAR VOLUME (BEAKER) (test fcmy=170) 107.8 fL 79.0-92.2 MEAN CORPUSCULAR HEMOGLOBIN (BEAKER) (test 33.6 pg 25.7-32.2 cvhc=859) MEAN CORPUSCULAR HEMOGLOBIN CONC (BEAKER) (test 31.2 GM/DL 32.3-36.5 huix=114) RED CELL DISTRIBUTION WIDTH (BEAKER) (test 14.4 % 11.6-14.4 hsjh=267) PLATELET COUNT (BEAKER) (test ewxo=640) 56 K/CU MM 150-450 MEAN PLATELET VOLUME (BEAKER) (test seij=901) 11.8 fL 9.4-12.4 NUCLEATED RED BLOOD CELLS (BEAKER) (test 0 /100 WBC 0-0 dyyw=798) NEUTROPHILS RELATIVE PERCENT (BEAKER) (test 52 % ufup=045) LYMPHOCYTES RELATIVE PERCENT (BEAKER) (test 31 % xiuw=254) MONOCYTES RELATIVE PERCENT (BEAKER) (test 12 % idgm=935) EOSINOPHILS RELATIVE PERCENT (BEAKER) (test 4 % fhuf=186) BASOPHILS RELATIVE PERCENT (BEAKER) (test 1 % ifrt=003) NEUTROPHILS ABSOLUTE COUNT (BEAKER) (test 3.14 K/ L 1.78-5.38 qlci=448) LYMPHOCYTES ABSOLUTE COUNT (BEAKER) (test 1.88 K/ L 1.32-3.57 hdtk=569) MONOCYTES ABSOLUTE COUNT (BEAKER) (test giks=543) 0.75 K/ L 0.30-0.82 EOSINOPHILS ABSOLUTE COUNT (BEAKER) (test 0.24 K/ L 0.04-0.54 ofuq=658) BASOPHILS ABSOLUTE COUNT (BEAKER) (test xsdz=086) 0.05 K/ L 0.01-0.08 IMMATURE GRANULOCYTES-RELATIVE PERCENT (BEAKER) 1 % 0-1 (test zghm=6877)
[2019-04-09 07:14] VITALS: O2SAT 100
[2019-04-09] MEDS ORDERED: NA CHLORIDE 0.9% 1,000 ML ONE (07:22)
[2019-04-09] MEDS ORDERED: LIDOCAINE 1% MPF 5 ML VIAL ONE (08:38)
[2019-04-09] MEDS ORDERED: PROPOFOL 200 MG/20 ML VIAL IV ONE ×2 (08:38→09:13)
--- NOTE | 2019-04-09 09:06 | ENDO RPT ---
[address], [address] EGD PROCEDURE REPORT EXAM DATE: 04/09/2019 PATIENT NAME: Tonny Cardona MR#: [id number] BIRTHDATE: 1955 ATTENDING: Anil Tavera Dr STATUS: outpatient SMALL EQUIPMENT OPERATOR: Deborah Martines RN and Alonso Orantes RN INDICATIONS: The patient is a 63 yr old Male here for an EGD due to surveillance PROCEDURE PERFORMED: EGD with banding MEDICATIONS: Per Anesthesia. TOPICAL ANESTHETIC: none CONSENT: The patient understands the risks and benefits of the procedure and understands that these risks include, but are not limited to: sedation, allergic reaction, infection, perforation and/or bleeding. Alternative means of evaluation and treatment include, among others: physical exam, x-rays, and/or surgical intervention. The patient elects to proceed with this endoscopic procedure. DESCRIPTION OF PROCEDURE: During intra-op preparation period all mechanical medical equipment was checked for proper function. Hand hygiene and appropriate measures for infection prevention was taken. Procedure, possible complications, and alternatives including but not limited to the possibility of bleeding, perforation, tear, infection, sepsis, need for surgery, need for blood transfusion, and anesthesia related complications were explained to the patient. After the risks, benefits and alternatives of the procedure were thoroughly explained, Informed consent was verified, confirmed and timeout was successfully executed by the treatment team. The patient was placed in the left lateral position. The patient was anesthetized with topical anesthesia. Through the anesthetized oropharyngeal area, the scope was passed without any difficulty. The Pentax [id number] ([id number]) endoscope was introduced through the mouth and advanced to the second portion of the duodenum. Retroflexed views revealed no abnormalities. The gastroscope was then slowly withdrawn and removed. 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 Esophageal banding was performed X2. Portal hypertensive gastropathy was found in the body of the stomach. ADVERSE EVENTS: There were no complications. IMPRESSIONS: 1. 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 Portal hypertensive gastropathy in the body of the stomach RECOMMENDATIONS: Coreg REPEAT EXAM: Return in 8 week(s) for EGD. Anil Tavera Dr eSigned: Anil Tavera Dr 04/09/2019 9:06 AM cc: CPT CODES: ICD9 CODES: PATIENT NAME: Tonny Cardona MR#: [id number]
[2019-04-09 09:53] VITALS: TEMP 98.6
[2019-04-09 09:54] VITALS: BP 122/73
== END 2019-04-09 09:40 | disposition home or self-care (01) ==
LOC: OR 06:50
PROVIDERS: ATTEND Internal Medicine Gastroenterology
PROC: 06L38CZ Occlusion of Esophageal Vein with Extraluminal Device, Via Natural or Artificial Opening Endoscopic (ICD-10-PCS; principal; 2019-04-09 08:45)
DX: I85.10 Secondary esophageal varices without bleeding (principal); K74.60 Unspecified cirrhosis of liver; K76.6 Portal hypertension; K31.89 Other diseases of stomach and duodenum; K21.9 Gastro-esophageal reflux disease without esophagitis; E11.9 Type 2 diabetes mellitus without complications; I10 Essential (primary) hypertension; C45.9 Mesothelioma, unspecified; L40.9 Psoriasis, unspecified; F41.9 Anxiety disorder, unspecified; F32.9 Major depressive disorder, single episode, unspecified
CPT/HCPCS: 82947; 43244; J2704 ×2; J7030

== ENCOUNTER 2019-11-18 11:26 | Emergency (ER) | payer OTHER ==
--- OUTSIDE RECORDS SUMMARY | 2019-11-18 12:40 | XMS REPORT | Clinical Summary ---
:1955 [address] [facility] Address [address] [place] [address] Care Team Providers Name Role Phone Unavailable Primary Care Provider Unavailable Allergies No Known Allergies Medications Medication Sig Dispensed Refills Start Date End Date Status traMADol (ULTRAM) 50 Take 1 tablet by 30 tablet 0 12/15/2015 Active mg tabletIndications: mouth every 6 Recurrent umbilical hours as needed hernia for Pain. Active Problems Problem Noted Date Umbilical hernia 06/04/2010 Recurrent umbilical hernia Thrombocytopenia Family History Medical History Relation Name Comments Diabetes Father Relation Name Status Comments Father Social History Tobacco Use Types Packs/Day Years Used Date Current Every Day Smoker Cigarettes 0.25 30 Alcohol Use Drinks/Week oz/Week Comments Yes 6 packs/day-last time yesterday Sex Assigned at Date Recorded Not on file Job Start Date Occupation Industry Not on file Not on file Not on file Travel History Travel Start Travel End No recent travel history available. Last Filed Vital Signs Not on file Plan of Treatment Health Maintenance Due Date Last Done Comments Colorectal Cancer Scrn Annual (FIT/FOBT) Age 50 to 75 2006 IMM Influenza Seasonal Feb to July (>/= 19 yrs) 02/27/2020 Results Not on fileafter 11/17/2018 Insurance Payer Benefit Plan / Subscriber ID Effective Dates Phone Addre ss Type Group [employer] SELF-PAY xxxxxxxxx 2015-Prese [phone] [id number] SELF-PAY UNSCREENED [address] [place] [address] [phone] (Work) Advance Directives Code Status Date Activated Date Inactivated Comments Full Code 06/15/2010 2:59 PM 06/17/2010 2:54 PM Full Code 06/04/2010 6:03 AM 06/05/2010 6:33 PM
--- OUTSIDE RECORDS SUMMARY | 2019-11-18 12:43 | XMS REPORT | Clinical Summary ---
:1955 Author Organization [facility] Address [address] [place] [address] Care Team Providers Name Role Phone Unavailable Primary Care Provider Unavailable Allergies No Known Allergies Medications Medication Sig Dispensed Refills Start Date End Date Status lactulose TK 15 ML PO TID 11 09/29/2018 Act nishant (CHRONULAC) 10 gram/15 mL solution spironolactone Take 100 mg by 0 Active (ALDACTONE) 100 MG mouth 2 (two) tablet times daily. ALPRAZolam (XANAX) TK 1 T PO BID 0 11/13/2018 Active 1 MG tablet PRF ANXIETY carvedilol (COREG) Take 6.25 mg by 0 07/04/2018 Active 3.125 MG tablet mouth 2 (two) times daily with breakfast and dinner . folic acid TK 1 T PO QD 3 11/08/2018 Activ e (FOLVITE) 1 MG tablet hydrOXYzine Take 50 mg by 0 04/11/2018 Act nishant (ATARAX) 50 MG mouth as needed tablet . lisinopril Take 20 mg by 0 07/04/2018 Acti ve (PRINIVIL,ZESTRIL) mouth daily . 20 MG tablet metFORMIN Take 500 mg by 0 07/10/2018 Acti ve (GLUCOPHAGE) 500 MG mouth 2 (two) tablet times daily with breakfast and dinner . pantoprazole Take 40 mg by 0 06/06/2018 Ac tive (PROTONIX) 40 MG mouth daily . tablet pitavastatin Take 2 mg by 0 Acti ve calcium (LIVALO) 2 mouth daily . mg Tab tablet thiamine 100 mg Tab TK 1 T PO D 3 11/19/2018 Active tablet triamcinolone Apply 1 0 08/05/2018 Activ e (KENALOG) 0.1 % application topical cream topically 2 (two) times daily. clobetasol Apply 1 0 12/17/2018 Active (TEMOVATE) 0.05 % application cream topically 2 (two) times daily. rifAXIMin 550 mg Take 550 mg by 0 Active Tab mouth 2 (two) times daily. omeprazole Take 40 mg by 0 Activ e (PRILOSEC) 40 MG mouth daily. capsule thiamine (VITAMIN Take 100 mg by 0 Active B-1) 100 MG tablet mouth daily. furosemide (LASIX) Take 2 tablets 60 tablet 1 06/04/2019 Active 40 MG tablet (80 mg total) by mouth 2 (two) times daily. furosemide (LASIX) TK 1 T PO QAM 11 09/17/2018 Discontinued 40 MG tablet AND QPM 0 rifAXIMin 550 mg Take 1 tablet 60 tablet 0 10/31/2018 12/01/19 1 Tab (550 mg total) 9 by mouth 2 (two) times daily for 30 days. furosemide (LASIX) Take 2 tablets 60 tablet 1 06/04/201906/04 Discontinued 40 MG tablet (80 mg total) by 0 mouth 2 (two) times daily. Active Problems Problem Noted Date Cirrhosis 06/04/2019 History of alcohol use 03/18/2019 Secondary esophageal varices without bleeding 03/18/20 19 Pre-transplant evaluation for chronic liver disease Last Assessment & Plan: He is an acceptable candidate for liver transplant pending further imaging/testing and official review at [facility]. Psoriasis 12/19/2018 Last Assessment & Plan: Continue follow up with dermatology/rheu matology. 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 He caimlo l continue follow up with hepatology. Ascites due to alcoholic cirrhosis 10/03/2018 Last Assessment & Plan: Ascites and leg swelling is controlled w ith Lasix 40 mg and Aldactone 100 mg a day; restrict salt to 2 gm per day. Low carb but high protein diet. Screening for endocrine, metabolic and immunity disord er 10/03/2018 Last Assessment & Plan: Serological tests will be completed to d etermine the presence of immunity to hepatitis A and B. If found susceptible she will be referred to her primary care provider to consider the administration of the appropriate vaccines. Screening for cancer 10/03/2018 Last Assessment & Plan: Cirrhosis, regardless of etiology, is a risk factor for hepatocellular carcinoma (HCC), with an annual incidence of 1.5-7 %. We recommend surveillance for HCC with abdominal imaging and alphafetoprotein e very 6 months. MRI 07/17 did not show any liver lesion. Metabolic syndrome 10/03/2018 Resolved Problems Problem Noted Date Resolved Date Portal hypertension 10/03/2018 03/18/2019 Last Assessment & Plan: Portal hypertension with evidence by ascites, jaundice, encephalopathy, and varices. Encephalopathy 10/03/2018 03/18/2019 Last Assessment & Plan: Recurrent hospital admission with hepati c encephalopathy. Continue Lactulose to have 2-3 bowel movement a day and add Xifaxan 550 mg twice a day if insurance approves. Encounters Date Type Specialty Care Team Description 11/07/2019 Orders Only Transplant Samira Martínez Awaiting orga n transplant status (Primary Dx); Hepatology R RN Hepatic cirrhos is, unspecified hepatic cirrhosis type, unspecified whether ascites present (HCC) 10/22/2019 Telephone Transplant Marta Stein Appointment Hepatology E (Scheduled 01/28 2 clinic, mri & b mds appts w/pt. Itinerstefany rodney) 10/08/2019 Telephone Transplant Samira Martínez Follow-up Hepatology DIANE Arita 10/07/2019 Orders Only Samira Lockhart Awaiting orga n transplant status; Hepatology Juan J RN Cirrhosis of li tadeo without ascites, unspecified hepatic cirrhosis type (HCC); Screening for m alignant neoplasm 10/03/2019 Orders Only Transplant Samira Martínez Awaiting orga n transplant status (Primary Dx); Hepatology R RN Screening for e ndocrine, metabolic and immunity disorder; Cirrhosis of li tadeo without ascites, unspecified hepatic cirrhosis type (HCC); Screening for m alignant neoplasm 09/26/2019 Telephone Transplant Marta Stein Appointment (LVM. Hepatology E REscheduled mis sed mri due now & c linic, mri, bmds & feg jhonatan due Jan.) 08/29/2019 Documentation Transplant Samira Martínez Hepatology Juan J RN 08/26/2019 Orders Only Samira Lockhart Cirrhosis of liver without ascites, unspecified hepatic cirrhosis type (HCC) (Primary Dx); Hepatology R, RN Screening for e ndocrine, metabolic and immunity disorder; Awaiting organ transplant status 08/26/2019 Abstract Transplant Samira Martínez Hepatology R, RN 08/20/2019 Telephone Transplant Veena Swift Error Hepatology MD Bettie 08/20/2019 Documentation Transplant Veena Swift Hepatology MD Bettie 08/20/2019 Telephone Transplant Veena Swift Cirrhosis Fol low-up Hepatology MD Bettie 08/20/2019 Documentation Transplant Eddie Steinberg Hepatology GDIANE 08/16/2019 Telephone Transplant Chary Irvin, CLINIC Hepatology RN 07/12/2019 UNOS Charge Visit Transplant Shamar Michaels Jr., MD 07/12/2019 Telephone Transplant Marta Stein Appointment Hepatology E (Cancelled 07/27 0 hepatology appt and scheduled 08/19 clinic & mri ap pt w/pt. Itinerar y mailed.) 07/12/2019 Documentation Transplant Maricel Barber RN Hepatology 07/10/2019 Orders Only Transplant Marta Stein Metabolic s yndrome; Hepatology E Pre-transplant evaluation for chronic liver disease; Cirrhosis of li tadeo without ascites, unspecified hepatic cirrhosis type (HCC); Abnormal liver function; Alcoholic cirrh osis of liver with ascites (HCC); Portal hyperten johann (HCC) 07/09/2019 Orders Only Transplant Maricel Barber RN Cirrhosis o f liver without ascites, unspecified hepatic cirrhosis type (HCC) (Primary Dx); Hepatology Metabolic syndr ome; Pre-transplant evaluation for chronic liver disease; Abnormal liver function 07/08/2019 Orders Only Transplant Maricel Barber RN Alcoholic c irrhosis of liver with ascites (HCC) (Primary Dx); Hepatology Portal hyperten johann (HCC); Metabolic syndr ome; Abnormal liver function 06/13/2019 Abstract Transplant Chary Irvin Hepatology RN 06/13/2019 Abstract Transplant Chary Irvin Hepatology RN 06/04/2019 Surgery Jaspal Mckeon R & L CATH / CORONARY MD Shamar ANGIOS / PCI 06/04/2019 Hospital Encounter Jaspal Mckeon MD 05/27/2019 Telephone Transplant Chary Irvin, Follow-up Hepatology RN 05/08/2019 Office Visit Hepatology Kleber Anaya Alcoholic cirrh osis of liver with ascites (HCC) (Primary Dx); LEWIS Cook History of alcohol use; Ruthann Pizarro Screening for c ancer; LEWIS Suh 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 ; Portal hyperten johann (HCC); Ascites due to alcoholic cirrhosis (HCC); Psoriasis; Hepatic encepha lopathy (HCC); Screening for e ndocrine, metabolic and immunity disorder; Immunity status testing 04/29/2019 Telephone Transplant Marta Stein Appointment (LVM. Hepatology E Calling to conf ir 04/30 appts.) 04/12/2019 Telephone Transplant Marta Stein Appointment (Pt Hepatology E called and rescheduled appts due to he has nobody to bring him to his appt. Rescheduled giancarlo e 04/30 i explain ed to pt he needs to make his tranportati on arrangements no w so he doesn't miss that appt. Itinerar y mailed to pt. ) 04/12/2019 Telephone Transplant Chary Irvin, Follow-up Hepatology RN 04/08/2019 Telephone Transplant Chary Irvin, Follow-up Hepatology RN 03/21/2019 Telephone Transplant Chary Irvin, Follow-up Hepatology RN 03/08/2019 Telephone Transplant Marta Stein Hepatology E (Scheduled 03/29 9 clinic & mri ap pt w/pt. Itinerar y mailed.) 03/07/2019 Telephone Transplant Marta Stein Appointment ([facility]. [facility]atology E [facility] end of and clinic due end of March. ) 03/06/2019 Telephone Transplant Chary Irvin, Follow-up Hepatology RN 03/06/2019 Telephone Transplant Chary Irvin, MELD Hepatology RN 03/06/2019 Telephone Transplant Chary Irvin, Follow-up Hepatology RN 02/28/2019 Office Visit Hepatology Ankur Dan Alcoholic cirr hosis of liver with ascites (HCC) (Primary Dx); MD Alli Screening for cancer; Kleber Anaya Liver mass; LEWIS Cook Portal hyperten johann (HCC); Hepatic encepha lopathy (HCC); Ascites due to alcoholic cirrhosis (HCC); Immunity status testing; History of alco hol use; 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 02/21/2019 Telephone Transplant Chary Irvin, Follow-up Hepatology RN 01/10/2019 Telephone Transplant Rizwana Murray Follow-up Hepatology Anthony, RN 12/28/2018 Abstract Transplant Felicitas Venegas R Hepatology 12/20/2018 Office Visit Lab Tallal Prasun AGUILAR (nonalcoh olic steatohepatitis); MD Alli Pre-transplant evaluation for liver transplant 12/20/2018 Orders Only Transplant Jalal, Prasun AGUILAR (nonalcoh olic steatohepatitis); Hepatology MD Alli Pre-transplant evaluation for liver transplant 12/20/2018 Orders Only Transplant Jalal, Prasun AGUILAR (nonalcoh olic steatohepatitis); Hepatology MD Alli Pre-transplant evaluation for liver transplant 12/19/2018 Hospital Encounter Jalal, Prasun AGUILAR (no nalcoholic steatohepatitis); MD Alli Pre-transplant evaluation for liver transplant 12/19/2018 Hospital Encounter Jalal, Prasun AGUILAR (no nalcoholic steatohepatitis); MD Alli Pre-transplant evaluation for liver transplant 12/19/2018 Hospital Encounter Radiology Jalal, Prasun AGUILAR (no nalcoholic steatohepatitis); MD Alli Pre-transplant evaluation for liver transplant 12/19/2018 Evaluation Transplant Tallal, Prasun Hepatology MD Albaro Carson Amy 12/19/2018 Evaluation Transplant Jalal, Prasun Pre-transplant Hepatology MD Alli evaluation for liver Felicitas Venegas R transplant ( Primary Dx) 12/19/2018 Social Work Transplant Tallal, Prasun Hepatology MD Joann Carson Robin M, [facility] 12/19/2018 Evaluation Transplant Jalal, Prasun Portal hyperte nsion (HCC); Hepatology MD Alli Pre-transplant evaluation for chronic li tadeo disease; Daniel Malone Alcoholic cir rhosis of liver with ascites (HCC); MD Ministerio Psoriasis 12/19/2018 Documentation Transplant Maricel Barber RN Hepatology 12/19/2018 Outside Orders Ni, Ankur Carson MD 12/13/2018 Orders Only Transplant Rizwana Murray Pre-transpla nt evaluation for liver transplant (Primary Dx); Hepatology Anthony RN AGUILAR (nonalcoho lic steatohepatitis) 12/13/2018 Telephone Transplant Emil Marta Liver Trans plant Hepatology E Pre-evaluation (Scheduled 11/27 & 12/20 eval appt s w/Stella. Jayna miller) 12/10/2018 Abstract Transplant Shamar Michaels Hepatology MD So 12/10/2018 Abstract Transplant Chemo Vallejoandrew 12/06/2018 Office Visit Hepatology Ankur Dan Other ascites (Primary Dx); MD Alli Cirrhosis of liver with ascites, unspeci fied hepatic cirrhosis type (HCC); Paola Ernandez History of alco hol abuse; GIOVANNA Rodriguez Alcohol abuse with uncomplicated intoxication (HCC) ; Portal hyperten johann (HCC); Alcoholic cirrh osis of liver with ascites (HCC); Hepatic encepha lopathy (HCC); Screening for c ancer; Ascites due to alcoholic cirrhosis (HCC); Immunity status testing after 11/17/2018 Immunizations Name Dates Previously Given Next Due Pneumococcal Conjugate (Prevnar) 13-Valent 10/28/2018 Family History Medical History Relation Name Comments Diabetes Brother Hypertension Brother Diabetes Father Liver disease Mother Cancer Sister Relation Name Status Comments Brother Alive Father Mother Sister Social History Tobacco Use Types Packs/Day Years Used Date Former Smoker Quit: 10/04/19 19 Smokeless Tobacco: Never Used Alcohol Use Drinks/Week oz/Week Comments No Alcohol Habits Answer Date Recorded How often do you have a drink containing alcohol? Never 10/03/2018 How many drinks containing alcohol do you have on a typical Not asked day when you are drinking? How often do you have six or more drinks on one occasion? No t asked Sex Assigned at Date Recorded Not on file Job Start Date Occupation Industry Not on file Not on file Not on file Travel History Travel Start Travel End No recent travel history available. Last Filed Vital Signs Vital Sign Reading Time Taken Blood Pressure 144/71 06/04/2019 4:00 PM SPEEDER OPERATOR Pulse 71 06/04/2019 4:00 PM SPEEDER OPERATOR Temperature 36.3 C (97.4 F) 06/04/2019 7:49 AM SPEEDER OPERATOR Respiratory Rate 18 06/04/2019 4:00 PM SPEEDER OPERATOR Oxygen Saturation 98% 06/04/2019 12:15 PM SPEEDER OPERATOR Inhaled Oxygen Concentration - - Weight 103 kg (227 lb) 06/04/2019 7:49 AM SPEEDER OPERATOR Height 167.6 cm (5' 6") 06/04/2019 7:49 AM SPEEDER OPERATOR Body Mass Index 36.64 06/04/2019 7:49 AM SPEEDER OPERATOR Plan of Treatment Date Type Specialty Care Team Description 02/18/2020 Follow-Up Transplant Hepatology 02/18/2020 Appointment Radiology 02/18/2020 Appointment Health Maintenance Due Date Last Done Comments PNEUMOCOCCAL VACCINE 2-64 YEARS AT RISK (2 of 3 - 12/23/2018 10/28/2018 PPSV23) MEDICARE ANNUAL WELLNESS (YEAR 2 or FIRST YEAR if no 05/29/2019 IPPE) INFLUENZA VACCINE (Season Ended) 2020 04/11/2018 COLON CANCER SCREENING COLONOSCOPY 06/12/2028 06/12/2018 Procedures Procedure Name Priority Date/Time Associated Comments Diagnosis PLATELET ESTIMATION Routine 10/07/2019 9:28 Resu lts for this AM CDT procedure are i n the results section. PROTHROMBIN TIME/INR Routine 10/07/2019 9:28 Awaiting organ R esults for this AM CDT transplant statu s procedure are in Cirrhosis of liver the resul ts without ascites, section. unspecified hepatic cirrhosis type (HCC) ALPHA FETOPROTEIN Routine 10/07/2019 9:28 Awaiting organ Resu lts for this (AFP), TUMOR MARKER AM CDT transplant s tatus procedure are in Cirrhosis of liver the resul ts without ascites, section. unspecified hepatic cirrhosis type (HCC) Screening for malignant neoplasm BILIRUBIN, DIRECT Routine 10/07/2019 9:28 Awaiting organ Resu lts for this AM CDT transplant statu s procedure are in Cirrhosis of liver the resul ts without ascites, section. unspecified hepatic cirrhosis type (HCC) CBC W/PLT COUNT & AUTO Routine 10/07/2019 9:28 Awaiting organ Results for this DIFFERENTIAL AM CDT transplant statu s procedure are in Cirrhosis of liver the resul ts without ascites, section. unspecified hepatic cirrhosis type (HCC) COMPREHENSIVE Routine 10/07/2019 9:28 Awaiting organ Results for this METABOLIC PANEL AM CDT transplant statu s procedure are in Cirrhosis of liver the resul ts without ascites, section. unspecified hepatic cirrhosis type (HCC) PLATELET ESTIMATION Routine 07/10/2019 12:00 Resu lts for this AM SPEEDER OPERATOR procedure are i n the results section. COMPREHENSIVE Routine 07/10/2019 12:00 Metabolic syndr ome Results for this METABOLIC PANEL AM SPEEDER OPERATOR Pre-transplant procedure are in evaluation for the results chronic liver section. disease Cirrhosis of liver without ascites, unspecified hepatic cirrhosis type (HCC) Abnormal liver function PROTHROMBIN TIME/INR Routine 07/10/2019 12:00 Metabolic syndrome Results for this AM SPEEDER OPERATOR Pre-transplant procedure are in evaluation for the results chronic liver section. disease Cirrhosis of liver without ascites, unspecified hepatic cirrhosis type (HCC) Abnormal liver function CBC W/PLT COUNT & AUTO Routine 07/10/2019 12:00 Metaboli c syndrome Results for this DIFFERENTIAL AM SPEEDER OPERATOR Pre-transplant procedure are in evaluation for the results chronic liver section. disease Cirrhosis of liver without ascites, unspecified hepatic cirrhosis type (HCC) Abnormal liver function ALPHA FETOPROTEIN Routine 07/10/2019 12:00 Metabolic syn drome Results for this (AFP), TUMOR MARKER AM SPEEDER OPERATOR Pre-transplant proced ure are in evaluation for the results chronic liver section. disease Cirrhosis of liver without ascites, unspecified hepatic cirrhosis type (HCC) Abnormal liver function REPORT OF PROCEDURE - 06/05/2019 1:52 ENDOSCOPY SCAN PM SPEEDER OPERATOR CARDIAC CATH REPORT - 06/05/2019 1:52 SCAN PM SPEEDER OPERATOR VASCULAR DIAGRAM -SCAN 06/05/2019 1:51 PM SPEEDER OPERATOR STENT / CAROTID MCR 06/04/2019 9:46 Hepatic cirrhos is, - IP PROC ONLY AM SPEEDER OPERATOR unspecified hepatic cirrhosis type, unspecified whether ascites present (HCC) Case Notes (3)CASE 6TOP R & L CATH / CORONARY 06/04/2019 9:46 AM SPEEDER OPERATOR Hepatic cirrhosis, unspecified ANGIOS / PCI hepatic cirrhosis type, unspecified whether ascites present (HCC) Case Notes (3)CASE 6TOP CBC W/PLT COUNT & AUTO Routine 06/04/2019 8:38 R esults for DIFFERENTIAL AM SPEEDER OPERATOR this procedure are in the results section. CBC W/PLT COUNT & AUTO Routine 06/04/2019 8:38 R esults for DIFFERENTIAL AM SPEEDER OPERATOR this procedure are in the results section. BASIC METABOLIC PANEL Routine 06/04/2019 8:38 Re sults for (7) AM SPEEDER OPERATOR this procedure are in the results section. CBC W/PLT COUNT & AUTO Routine 05/08/2019 1:37 Alcoholic cirr hosis Results for DIFFERENTIAL PM SPEEDER OPERATOR of liver with this procedure ascites (HCC) are in the results section. ALPHA FETOPROTEIN Routine 05/08/2019 1:37 Screening for cance r Results for (AFP), TUMOR MARKER PM SPEEDER OPERATOR this pro cedure are in the results section. PROTHROMBIN TIME/INR Routine 05/08/2019 1:37 Alcoholic cirrho sis Results for PM SPEEDER OPERATOR of liver with this procedure ascites (HCC) are in the results section. CBC W/PLT COUNT & AUTO Routine 05/08/2019 1:37 Alcoholic cirr hosis Results for DIFFERENTIAL PM SPEEDER OPERATOR of liver with this procedure ascites (HCC) are in the results section. HEPATIC FUNCTION PANEL Routine 05/08/2019 1:37 Alcoholic cirr hosis Results for PM SPEEDER OPERATOR of liver with this procedure ascites (HCC) are in the results section. BASIC METABOLIC PANEL Routine 05/08/2019 1:37 Alcoholic cirrh osis Results for (7) PM SPEEDER OPERATOR of liver with this procedure ascites (HCC) are in the results section. MISCELLANEOUS LAB Routine 05/08/2019 1:37 History of alcohol ORDER PM SPEEDER OPERATOR use CBC W/PLT COUNT & AUTO Routine 02/28/2019 12:47 Alcoholic cirr hosis Results for DIFFERENTIAL PM CDT of liver with this procedure ascites (HCC) are in the results section. ALPHA FETOPROTEIN Routine 02/28/2019 12:47 Alcoholic cirrhosis Results for (AFP), TUMOR MARKER PM CDT of liver with this pr ocedure ascites (HCC) are in the results section. PROTHROMBIN TIME/INR Routine 02/28/2019 12:47 Alcoholic cirrho sis Results for PM CDT of liver with this procedure ascites (HCC) are in the results section. CBC W/PLT COUNT & AUTO Routine 02/28/2019 12:47 Alcoholic cirr hosis Results for DIFFERENTIAL PM CDT of liver with this procedure ascites (HCC) are in the results section. HEPATIC FUNCTION PANEL Routine 02/28/2019 12:47 Alcoholic cirr hosis Results for PM CDT of liver with this procedure ascites (HCC) are in the results section. BASIC METABOLIC PANEL Routine 02/28/2019 12:47 Alcoholic cirrh osis Results for (7) PM CDT of liver with this procedure ascites (HCC) are in the results section. TRANSFUSION SERVICE 12/21/2018 5:54 REPORT - SCAN PM CDT TRANSFUSION SERVICE 12/21/2018 5:54 REPORT - SCAN PM CDT BLOOD GAS, ARTERIAL Routine 12/20/2018 10:26 AGUILAR (nonalcoholi c Results for AM CDT steatohepatitis) this procedure Pre-transplant are in the evaluation for liver results transplant section. BLOOD TYPING, Routine 12/20/2018 9:47 AGUILAR (nonalcoholic Resu lts for AUTOMATED AM CDT steatohepatitis) this procedure Pre-transplant are in the evaluation for liver results transplant section. CBC W/PLT COUNT & AUTO Routine 12/20/2018 9:22 AGUILAR (nonalcoh olic Results for DIFFERENTIAL AM CDT steatohepatitis) this procedure Pre-transplant are in the evaluation for liver results transplant section. TYPE AND SCREEN, Routine 12/20/2018 9:22 AGUILAR (nonalcoholic R esults for AUTOMATED AM CDT steatohepatitis) this procedure Pre-transplant are in the evaluation for liver results transplant section. HEPATITIS C ANTIBODY Routine 12/20/2018 9:22 AGUILAR (nonalcohol ic Results for AM CDT steatohepatitis) this procedure Pre-transplant are in the evaluation for liver results transplant section. ALPHA-1 ANTITRYPSIN Routine 12/20/2018 9:22 AGUILAR (nonalcoholi c Results for MUTATION ANALYSIS AM CDT steatohepatiti s) this procedure Pre-transplant are in the evaluation for liver results transplant section. [id number]\\, Routine 12/20/2018 9:22 AGUILAR (nonalcoho lic Results for SERUM AM CDT steatohepatitis) this procedure Pre-transplant are in the evaluation for liver results transplant section. CRYPTOCOCCAL ANTIGEN Routine 12/20/2018 9:22 AGUILAR (nonalcohol ic Results for AM CDT steatohepatitis) this procedure Pre-transplant are in the evaluation for liver results transplant section. VARICELLA ZOSTER Routine 12/20/2018 9:22 AGUILAR (nonalcoholic R esults for ANTIBODY, IGG AM CDT steatohepatitis) this procedure Pre-transplant are in the evaluation for liver results transplant section. VARICELLA ZOSTER Routine 12/20/2018 9:22 AGUILAR (nonalcoholic R esults for ANTIBODY, IGM AM CDT steatohepatitis) this procedure Pre-transplant are in the evaluation for liver results transplant section. TESTOSTERONE, FREE + Routine 12/20/2018 9:22 AGUILAR (nonalcohol ic Results for TOTAL AM CDT steatohepatitis) this procedure Pre-transplant are in the evaluation for liver results transplant section. PSA Routine 12/20/2018 9:22 AGUILAR (nonalcoholic Resul ts for AM CDT steatohepatitis) this procedure Pre-transplant are in the evaluation for liver results transplant section. T SPOT TB Routine 12/20/2018 9:22 AGUILAR (nonalcoholic Resul ts for AM CDT steatohepatitis) this procedure Pre-transplant are in the evaluation for liver results transplant section. RPR Routine 12/20/2018 9:22 AGUILAR (nonalcoholic Resul ts for AM CDT steatohepatitis) this procedure Pre-transplant are in the evaluation for liver results transplant section. EBV ANTIBODY, IGM Routine 12/20/2018 9:22 AGUILAR (nonalcoholic Results for AM CDT steatohepatitis) this procedure Pre-transplant are in the evaluation for liver results transplant section. EBV ANTIBODY, IGG Routine 12/20/2018 9:22 AGUILAR (nonalcoholic Results for AM CDT steatohepatitis) this procedure Pre-transplant are in the evaluation for liver results transplant section. CYTOMEGALOVIRUS Routine 12/20/2018 9:22 AGUILAR (nonalcoholic Re sults for ANTIBODY, IGM AM CDT steatohepatitis) this procedure Pre-transplant are in the evaluation for liver results transplant section. CYTOMEGALOVIRUS Routine 12/20/2018 9:22 AGUILAR (nonalcoholic Re sults for ANTIBODY, IGG AM CDT steatohepatitis) this procedure Pre-transplant are in the evaluation for liver results transplant section. HIV-1 ANTIGEN WITH Routine 12/20/2018 9:22 AGUILAR (nonalcoholic Results for HIV-1/2 ANTIBODY AM CDT steatohepatitis ) this procedure Pre-transplant are in the evaluation for liver results transplant section. HEPATITIS A ANTIBODY, Routine 12/20/2018 9:22 AGUILAR (nonalcoho lic Results for IGG AM CDT steatohepatitis) this procedure Pre-transplant are in the evaluation for liver results transplant section. T4 AP Routine 12/20/2018 9:22 AGUILAR (nonalcoholic Resul ts for AM CDT steatohepatitis) this procedure Pre-transplant are in the evaluation for liver results transplant section. T3 Routine 12/20/2018 9:22 AGUILAR (nonalcoholic Resul ts for AM CDT steatohepatitis) this procedure Pre-transplant are in the evaluation for liver results transplant section. TSH Routine 12/20/2018 9:22 AGUILAR (nonalcoholic Resul ts for AM CDT steatohepatitis) this procedure Pre-transplant are in the evaluation for liver results transplant section. URIC ACID Routine 12/20/2018 9:22 AGUILAR (nonalcoholic Resul ts for AM CDT steatohepatitis) this procedure Pre-transplant are in the evaluation for liver results transplant section. ZINC Routine 12/20/2018 9:22 AGUILAR (nonalcoholic Resul ts for AM CDT steatohepatitis) this procedure Pre-transplant are in the evaluation for liver results transplant section. CARBOHYDRATE ANTIGEN Routine 12/20/2018 9:22 AGUILAR (nonalcohol ic Results for 19-9 (CA 19-9) AM CDT steatohepatitis) this procedure Pre-transplant are in the evaluation for liver results transplant section. ETHANOL Routine 12/20/2018 9:22 AGUILAR (nonalcoholic Resul ts for AM CDT steatohepatitis) this procedure Pre-transplant are in the evaluation for liver results transplant section. HEMOGLOBIN A1C Routine 12/20/2018 9:22 AGUILAR (nonalcoholic Res ults for AM CDT steatohepatitis) this procedure Pre-transplant are in the evaluation for liver results transplant section. LIPID PANEL Routine 12/20/2018 9:22 AGUILAR (nonalcoholic Resul ts for AM CDT steatohepatitis) this procedure Pre-transplant are in the evaluation for liver results transplant section. VITAMIN D, 25-HYDROXY Routine 12/20/2018 9:22 AGUILAR (nonalcoho lic Results for AM CDT steatohepatitis) this procedure Pre-transplant are in the evaluation for liver results transplant section. CERULOPLASMIN Routine 12/20/2018 9:22 AGUILAR (nonalcoholic Resu lts for AM CDT steatohepatitis) this procedure Pre-transplant are in the evaluation for liver results transplant section. FERRITIN Routine 12/20/2018 9:22 AGUILAR (nonalcoholic Resul ts for AM CDT steatohepatitis) this procedure Pre-transplant are in the evaluation for liver results transplant section. TRANSFERRIN Routine 12/20/2018 9:22 AGUILAR (nonalcoholic Resul ts for AM CDT steatohepatitis) this procedure Pre-transplant are in the evaluation for liver results transplant section. CBC W/PLT COUNT & AUTO Routine 12/20/2018 9:22 AGUILAR (nonalcoh olic Results for DIFFERENTIAL AM CDT steatohepatitis) this procedure Pre-transplant are in the evaluation for liver results transplant section. APTT Routine 12/20/2018 9:22 AGUILAR (nonalcoholic Resul ts for AM CDT steatohepatitis) this procedure Pre-transplant are in the evaluation for liver results transplant section. PROTHROMBIN TIME/INR Routine 12/20/2018 9:22 AGUILAR (nonalcohol ic Results for AM CDT steatohepatitis) this procedure Pre-transplant are in the evaluation for liver results transplant section. PHOSPHORUS Routine 12/20/2018 9:22 AGUILAR (nonalcoholic Resul ts for AM CDT steatohepatitis) this procedure Pre-transplant are in the evaluation for liver results transplant section. MAGNESIUM Routine 12/20/2018 9:22 AGUILAR (nonalcoholic Resul ts for AM CDT steatohepatitis) this procedure Pre-transplant are in the evaluation for liver results transplant section. CALCIUM, IONIZED Routine 12/20/2018 9:22 AGUILAR (nonalcoholic R esults for AM CDT steatohepatitis) this procedure Pre-transplant are in the evaluation for liver results transplant section. GAMMA GLUTAMYL Routine 12/20/2018 9:22 AGUILAR (nonalcoholic Res ults for TRANSFERASE (GGT) AM CDT steatohepatiti s) this procedure Pre-transplant are in the evaluation for liver results transplant section. BILIRUBIN, DIRECT Routine 12/20/2018 9:22 AGUILAR (nonalcoholic Results for AM CDT steatohepatitis) this procedure Pre-transplant are in the evaluation for liver results transplant section. COMPREHENSIVE Routine 12/20/2018 9:22 AGUILAR (nonalcoholic Resu lts for METABOLIC PANEL AM CDT steatohepatitis) this procedure Pre-transplant are in the evaluation for liver results transplant section. FIBRINOGEN Routine 12/20/2018 9:22 AGUILAR (nonalcoholic Resul ts for AM CDT steatohepatitis) this procedure Pre-transplant are in the evaluation for liver results transplant section. URINALYSIS W/ Routine 12/20/2018 9:21 AGUILAR (nonalcoholic Resu lts for MICROSCOPIC AM CDT steatohepatitis) this procedure Pre-transplant are in the evaluation for liver results transplant section. DRUG SCREEN, URINE, Routine 12/20/2018 9:21 AGUILAR (nonalcoholi c TRANSPLANT AM CDT steatohepatitis) Pre-transplant evaluation for liver transplant MR ABDOMEN WITH & Routine 12/19/2018 1:59 AGUILAR (nonalcoholic Results for WITHOUT IV CONTRAST PM CDT steatohepati tis) this procedure Pre-transplant are in the evaluation for liver results transplant section. XR CHEST 2 VIEWS Routine 12/19/2018 12:54 AGUILAR (nonalcoholic R esults for PM CDT steatohepatitis) this procedure Pre-transplant are in the evaluation for liver results transplant section. XR MANDIBLE 4 VIEWS Routine 12/19/2018 12:53 AGUILAR (nonalcoholi c Results for MIN PM CDT steatohepatitis) this procedure Pre-transplant are in the evaluation for liver results transplant section. CBC W/PLT COUNT & AUTO Routine 12/06/2018 9:49 Cirrhosis of l iver Results for DIFFERENTIAL AM CDT with ascites, this procedure unspecified hepatic are in t he cirrhosis type (HCC) results section. ETHANOL Routine 12/06/2018 9:49 Alcohol abuse with Resul ts for AM CDT uncomplicated this procedure intoxication (HC C) are in the Cirrhosis of liver results with ascites, section. unspecified hepatic cirrhosis type ( HCC) History of alcohol abuse PROTHROMBIN TIME/INR Routine 12/06/2018 9:49 Cirrhosis of marky er Results for AM CDT with ascites, this procedure unspecified hepatic are in t he cirrhosis type (HCC) results section. HEPATIC FUNCTION PANEL Routine 12/06/2018 9:49 Cirrhosis of l iver Results for AM CDT with ascites, this procedure unspecified hepatic are in t he cirrhosis type (HCC) results section. BASIC METABOLIC PANEL Routine 12/06/2018 9:49 Cirrhosis of li tadeo Results for (7) AM CDT with ascites, this procedure unspecified hepatic are in t he cirrhosis type (HCC) results section. CBC W/PLT COUNT & AUTO Routine 12/06/2018 9:49 Cirrhosis of l iver Results for DIFFERENTIAL AM CDT with ascites, this procedure unspecified hepatic are in t he cirrhosis type (HCC) results section. after 11/17/2018 Results PLATELET ESTIMATION (10/07/2019 9:28 AM CDT)Only the most recent of2 results within the time period is included. Platelet Estimate DECREASED (A) ADEQUATE [facility] Specimen Narrative Performed At FASTING:YES [facility] FASTING: YES Resulting Agency Comment Performing Organization Information: Site ID: [id number] Name: [facility] Address: [address] [place] [phone] Director: Terrell Romeo Performing Organization Address City/State/Zipcode Phone Number [facility] [address] [place] [address] [facility] Alpha fetoprotein (AFP), tumor marker (10/07/2019 9:28 AM CDT)Only the most recent of4 resultswithin the time period is included. Alpha-Fetoprotein 3.2 <6.1 ng/mL [facility] Comment: This test was performed using the TickPickte r chemiluminescent method. Values obtained from different assay methods cannot be used interchangeably. AFP levels, regardless of value, should not be interpreted as absolute evidence of the presence or absence of disease. Specimen Blood Narrative Performed At FASTING:YES [facility] FASTING: YES Resulting Agency Comment Performing Organization Information: Site ID: [id number] [facility]: [facility] Address: [address] [place] [address] Director: Dr. Terrell faria Performing Organization Address City/[facility] Phone Number [facility] [address] [place] [address] [facility] Prothrombin time/INR (10/07/2019 9:28 AM CDT)Only the most recent of6 results within the time period is included. INR 1.2 (H) [facility] Comment: Reference Range 0.9-1.1 Moderate-intensity Warfarin Therapy 2.0-3.0 Higher-intensity Warfarin Therapy 3.0-4.0 PT 12.9 (H) 9.0 - 11.5 sec [facility] Comment: For more information on this test, go to: http://education.[employer]/faq/XLI817 Specimen Blood Narrative Performed At FASTING:YES [facility] FASTING: YES Resulting Agency Comment Performing Organization Information: Site ID: [id number] Name: [facility] Address: [address] [place] [phone] Director: Terrell Romeo Performing Organization Address [facility] Hospital[facility] Phone Number [place] [phone] [place] [address] [facility] CBC with platelet count + automated diff (10/07/2019 9:28 AM CDT)Only the most recent of2 resultswithin the time period is included. WBC 5.8 3.8 - 10.8 Thousand/uL [facility] RBC 3.44 (L) 4.20 - 5.80 Million/uL [facility] Hemoglobin 8.7 (L) 13.2 - 17.1 g/dL [facility] Hematocrit 27.1 (L) 38.5 - 50.0 % [facility] MCV 78.8 (L) 80.0 - 100.0 fL [facility] MCH 25.3 (L) 27.0 - 33.0 pg [facility] MCHC 32.1 32.0 - 36.0 g/dL [facility] RDW 15.1 (H) 11.0 - 15.0 % [facility] Platelets 88 (L) 140 - 400 Thousand/uL [facility] MPV 10.7 7.5 - 12.5 fL [facility] # Neutros 3,010 1,500 - 7,800 cells/uL [facility] # Lymphs 1,937 850 - 3,900 cells/uL [facility] # Monos 621 200 - 950 cells/uL [facility] # Eos 180 15 - 500 cells/uL [facility] # Baso 52 0 - 200 cells/uL [facility] % Neutros 51.9 % [facility] % Lymphs 33.4 % [facility] % Monos 10.7 % [facility] % Eos 3.1 % [facility] % Baso 0.9 % [facility] Specimen Blood Narrative Performed At FASTING:YES [facility] FASTING: YES Resulting Agency Comment Performing Organization Information: Site ID: [id number] Name: [facility] Address: [address] [place] [phone] Director: Terrell Romeo Performing Organization Address [facility] Phone Number [facility] [address] [place] [address] [facility] Bilirubin, direct (10/07/2019 9:28 AM CDT)Only the most recent of2 results within the time period is included. Bilirubin, Total 2.4 (H) 0.2 - 1.2 mg/dL [facility] Bilirubin, Direct 0.7 (H) < OR = 0.2 mg/dL [facility] Bilirubin, Indirect 1.7 (H) 0.2 - 1.2 mg/dL (calc) [facility] Specimen Blood Narrative Performed At FASTING:YES [facility] FASTING: YES Resulting Agency Comment Performing Organization Information: Site ID: [id number] Name: [facility] Address: [address] [place] [phone] Director: Terrell Romeo Performing Organization Address [facility] Phone Number [facility] [address] [place] [address] [facility] Comprehensive metabolic panel (10/07/2019 9:28 AM CDT)Only the most recent of3 resultswithin the time period is included. Glucose 109 (H) 65 - 99 mg/dL [facility] Comment: Fasting reference interval For someone without known diabetes, a glucose va lue between 100 and 125 mg/dL is consistent with prediabetes and should be confirmed with a follow-up test. BUN 8 7 - 25 mg/dL [facility] Creatinine 0.67 (L) 0.70 - 1.25 mg/dL [facility] Comment: For patients >49 years of age, the reference love it for Creatinine is approximately 13% higher for p eople identified as -Cameroonian. eGFR If NonAfricn Am 103 > OR = 60 [facility] mL/min/1.73m2 eGFR If Africn Am 119 > OR = 60 [facility] mL/min/1.73m2 BUN/Creatinine Ratio 12 6 - 22 (calc) [facility] Sodium 141 135 - 146 mmol/L [facility] Potassium, Serum 3.8 3.5 - 5.3 mmol/L [facility] Chloride 107 98 - 110 mmol/L [facility] Carbon Dioxide, Total 26 20 - 32 mmol/L [facility] Calcium, Serum 8.8 8.6 - 10.3 mg/dL [facility] Protein, Total, Serum 6.7 6.1 - 8.1 g/dL [facility] Albumin 2.8 (L) 3.6 - 5.1 g/dL [facility] GLOBULIN (QUEST) 3.9 (H) 1.9 - 3.7 g/dL [facility] (calc) Albumin Globulin Ratio 0.7 (L) 1.0 - 2.5 (calc) [facility] Bilirubin, Total 2.4 (H) 0.2 - 1.2 mg/dL [facility] Alkaline Phosphatase, S 149 (H) 35 - 144 U/L [facility] AST (SGOT) 33 10 - 35 U/L [facility] ALT (SGPT) 20 9 - 46 U/L [facility] Specimen Blood Narrative Performed At FASTING:YES [facility] FASTING: YES Resulting Agency Comment Performing Organization Information: Site ID: [id number] Name: [facility] Address: [address] [place] [phone] Director: Terrell Romeo Performing Organization Address City/State/Zipcode Phone Number [facility] [address] [place] [address] [facility] EKG-SCANNED (06/05/2019 1:52 PM SPEEDER OPERATOR) Narrative Performed At This result has an attachment that is no t available. CARDIAC CATH REPORT - SCAN (06/05/2019 1:52 PM SPEEDER OPERATOR) Narrative Performed At This result has an attachment that is no t available. VASCULAR DIAGRAM -SCAN (06/05/2019 1:51 PM SPEEDER OPERATOR) Narrative Performed At This result has an attachment that is no t available. CBC with platelet count + automated diff (06/04/2019 8:38 AM SPEEDER OPERATOR)Only the most recent of5 resultswithin the time period is included. WBC 6.3 3.5 - 10.5 K/L [facility] RBC 3.34 (L) 4.63 - 6.08 M/L [facility] Hemoglobin 9.5 (L) 13.7 - 17.5 GM/DL [facility] Hematocrit 29.4 (L) 40.1 - 51.0 % [facility] MCV 88.0 79.0 - 92.2 fL [facility] MCH 28.4 25.7 - 32.2 pg [facility] MCHC 32.3 32.3 - 36.5 GM/DL [facility] RDW 16.7 (H) 11.6 - 14.4 % [facility] Platelets 69 (L) 150 - 450 K/CU MM [facility] MPV 10.0 9.4 - 12.4 fL [facility] nRBC 0 0 - 0 /100 WBC [facility] % Neutros 49 % [facility] % Lymphs 37 % [facility] % Monos 11 % [facility] % Eos 3 % [facility] % Baso 1 % [facility] # Neutros 3.07 1.78 - 5.38 K/L [facility] # Lymphs 2.31 1.32 - 3.57 K/L [facility] # Monos 0.69 0.30 - 0.82 K/L [facility] # Eos 0.17 0.04 - 0.54 K/L [facility] # Baso 0.06 0.01 - 0.08 K/L [facility] Immature Granulocytes-Relative 1 0 - 1 % [facility] Specimen Blood Performing Organization Address City/[facility]/Zipcode Phone Number [facility] [address] [place] [address] [place] Basic metabolic panel (06/04/2019 8:38 AM SPEEDER OPERATOR)Only the most recent of4 results within the time period is included. Sodium 137 136 - 145 meq/L [facility] Potassium 3.7 3.5 - 5.1 meq/L [facility] Chloride 107 98 - 107 meq/L [facility] CO2 25 22 - 29 meq/L [facility] BUN 5 (L) 7 - 21 mg/dL [facility] Creatinine 0.70 0.57 - 1.25 mg/dL [facility] Glucose 94 70 - 105 mg/dL [facility] Calcium 7.9 (L) 8.4 - 10.2 mg/dL [facility] EGFR 114Comment: ESTIMATED GFR IS mL/min/1.73 sq m I [facility] NOT ACCURATE CREATININE [facility] CLEARANCE IN PREDICTING GLOMERULAR FILTRATION RATE. ESTIMATED GFR IS NOT APPLICABLE FOR DIALYSIS PATIENTS. Specimen Blood Narrative Performed At Specimen slightly icteric [facility] Performing Organization Address City/[facility]/Zipcode Phone Number [facility] [address] [place] [address] [place] Miscellaneous lab test (05/08/2019 1:37 PM SPEEDER OPERATOR) Scan Result [facility] Specimen Blood Narrative Performed At This result has an attachment that is no t available. Performing Organization Address City/State/Zipcode Phone Number [facility] [address] [facility], [place] Hepatic function panel (05/08/2019 1:37 PM SPEEDER OPERATOR)Only the most recent of3 results within the time period is included. Protein, Total 7.0 6.0 - 8.3 gm/dL [facility] Albumin 2.5 (L) 3.5 - 5.0 g/dL [facility] Total Bilirubin 2.8 (H) 0.2 - 1.2 mg/dL [facility] Bilirubin, Direct 1.4 (H) 0.1 - 0.5 mg/dL [facility] Alkaline Phosphatase 258 (H) 40 - 150 U/L [facility] [place] AST 36 (H) 5 - 34 U/L [facility] ALT 21 6 - 55 U/L [facility] Specimen Blood Narrative Performed At Specimen slightly icteric [facility] Performing Organization Address City/State/Zipcode Phone Number [facility] [address] [place] [address] CENTER TRANSFUSION SERVICE REPORT - SCAN (12/21/2018 5:54 PM CDT)Only the most recent of2 resultswithin the time period is included. Narrative Performed At This result has an attachment that is no t available. Blood gas, arterial (12/20/2018 10:26 AM CDT) pH, Arterial 7.50 (H) 7.35 - 7.45 [facility] pCO2, Arterial 37 35 - 45 mmHg [facility] pO2, Arterial 86 80 - 90 mmHg [facility] O2 Sat, Arterial 97.2 (H) 96.0 - 97.0 % [facility] HCO3, Arterial 28 21 - 29 mmol/L [facility] Base Excess, Arterial 4.9 (H) -2.0 - 3.0 mmol/L [facility] Patient Temperature 37.0 C [facility] FIO2 21.0 % [facility] Specimen Blood, Arterial Performing Organization Address City/[facility] Phone Number [address] [address] [place] Blood typing, automated (12/20/2018 9:47 AM CDT) ABO/RH AUTOMATED (PhytoCeutica) O POSITIVE [facility] Specimen Blood Performing Organization Address [facility] Phone Number [address] [address] Hepatitis A antibody, IgG ([facility] ONLY) (12/20/2018 9:22 AM CDT) Hep A IgG Reactive (A) Nonreactive [facility] Specimen Blood Performing Organization Address [facility] Phone Number [address] [address] [place] Alpha-1 antitrypsin Mutation Analysis (12/20/2018 9:22 AM CDT) A1 Antitrypsin Mut SEE BELOW [facility] Comment: INCORPORATED RESULT: NO MUTATION DETECTED Interpretation: DNA testing indicates that this individual is negative for the PI*Z and PI*S alleles in the axqpx-3-ennidow psin (PI) gene (genotype PI*M/PI*M). This negative result does not rule o ut the presence of other mutations within the PI gene or other causes of uupfs-0-lbookbcfpks deficiency. Therefore, these results should be i nterpreted in the context of the individual's clinical presentation, and othe r laboratory tests such as measurement of serum phedw-0-cszvvdcckhu levels. Laboratory testing supervised and results monito red by Divya Amaya, Ph.D., FACMG, HCLD, CGMBS. Orijj-9-detzqqylfqo deficiency is a relatively common autosomal recessive condition. The two most common deficiency alleles in the tfzev-8-eiubnfydbns gene (protease inhibitor locus, PI) are designated PI*Z and PI*S, and the normal allele is designated PI*M. The PI*Z/PI*Z, PI*S/PI*Z, and PI*S/PI*S genotypes associated with decreased serum PI levels that are equivalent to approximately 10-20%, 35-40%, and 50-60% of normal, respectively. The PI*Z/PI*Z an d PI*S/PI*Z genotypes are reported to be associated with an increased risk of liver disease in childhood, and chronic obstructive pulmonary disease (COPD) and emphysema in adult life. The PI*M/PI*Z, and PI*M/PI*S genotypes are also associated with decreased serum PI levels but these levels, and the PI levels associated with the PI*S/PI*S genotype, are apparently adequate to protect the lungs in the vast majority of individuals. Individuals with the PI*M/PI*Z genotype may have decreased pulmonary function, and may be at increased risk for COPD, especially if they smoke. It should be noted that serum fgtzi-7-lavhgcriij n levels can be induced by a wide variety of conditions that include , infection, numerous inflammatory conditions, cancer, and liver disease. Levels of wqhof-1-twgpnwppcif may be reduced by other conditions. Therefore, immunological and functional determinations of serum hqjdn-5-bqwpnittrwa levels may not correlate with the individual's PI genotype. The PI*Z, PI*S, and PI*M alleles are detected by multiplex polymerase chain reaction (PCR) amplification of specific regions of the PI gene, followed by restriction enzyme digestion and capillary electrophoresis. This assay does not test for the presence of other mutations within the oadqi-1-trneimzxxcj gene or non-genetic causes of rmkws-5-fwevohwshzz deficiency. Since genetic variation and other factors can affect the accuracy of direct mutation testing, these results should be interpreted in light of clinical and familial data. This test was developed and its analytical perfo rmance characteristics have been determined by [employer] [facility]. It has not been cleared or approved by FDA. This assay has been validated pursuant to the CLIA regulations and is used for clinical purposes. Clinical Indication NOT GIVEN [facility] Referring Physician NOT GIVEN [facility] Specimen Blood Narrative Performed At Performing Lab [facility]Z [facility] [address] [address] [place] [address] I Martin GOMEZ, PhD, SANDRA Performing Organization Address City/[facility] Phone Number [facility] [place] [phone] [facility] [address] Type and screen, automated (12/20/2018 9:22 AM CDT) ABO/RH AUTOMATED (BEAKER) O POSITIVE [facility] Ab Scrn NEGATIVE [facility] Specimen Blood Performing Organization Address [facility] Phone Number [address] [address] T Spot TB (12/20/2018 9:22 AM CDT) T-Spot TB Negative [facility] Neg Ctrl Spot Count 0 [facility] Panel A Spot 2 [facility] Panel B Spot 1 [facility] Pos Ctrl Spot Ct 0 [facility] Scan Result [facility] Specimen Blood Narrative Performed At This result has an attachment that is no t available. Performing Organization Address [facility] Phone Number [facility] [address] [place] [address] [facility] HIV-1 Antigen with HIV-1/2 Antibody (12/20/2018 9:22 AM CDT) HIV-1 Antigen with HIV 1&2 Nonreactive Nonreactive [facility] Specimen Blood Performing Organization Address [facility]/Zipcode Phone Number [address] [address] CENTER Calcium, Ionized (12/20/2018 9:22 AM CDT) Calcium, Ion 1.05 (L) 1.12 - 1.27 mmol/L [facility] pH, Blood 7.41 [facility] Specimen Blood Performing Organization Address [facility] Phone Number [address] [address] [place] Hepatitis C antibody (12/20/2018 9:22 AM CDT) Hepatitis C Ab Reactive (A) Nonreactive [facility] Specimen Blood Performing Organization Address [facility] Phone Number [address] [address] [place] Cytomegalovirus antibody, IgM (12/20/2018 9:22 AM CDT) CMV IGM Negative Negative, Equivocal [facility] Specimen Blood Narrative Performed At CMV IgM Result Interpretation: [facility] </= 0.8 Al Negative 0.9-1.0 Al Equivocal >/= 1.1 Al Positive Performing Organization Address [facility] Phone Number [address] [address] [place] Taknd-9-vpybfytdgzk (12/20/2018 9:22 AM CDT) A-1 Antitrypsin 155.30 90.00 - 200.00 mg/dL [facility] [place] Specimen Blood Performing Organization Address [facility] Phone Number [address] [address] [place] Cryptococcal antigen (12/20/2018 9:22 AM CDT) Cryptococcal Antigen, Serum Negative Negative, Interferen ce [facility] Specimen Blood Performing Organization Address [facility] Phone Number [address] [address] [place] Carbohydrate antigen 19-9 (CA 19-9) (12/20/2018 9:22 AM CDT) CA 19-9 34 (H) <34 U/mL [facility] Comment: This test was performed using the Siemens Chemil uminescent method. Values obtained from different assay methods can not be used interchangeably. CA19-9 levels, regardless of value, should not b e interpreted as absolute evidence of the presence or absence of disease. Specimen Blood Narrative Performed At Performing Lab [facility] EZ [facility] t[facility] [address] [place] [address] I Martin GOMEZ, PhD, SANDRA Performing Organization Address [facility] Phone Number [place] [address] INCORPORATED [address] [facility] Ceruloplasmin (12/20/2018 9:22 AM CDT) Ceruloplasmin 26 18 - 36 mg/dL [facility] Comment: Adults:Males: 18-36 mg/dL Females: 18-53 m g/dL Pediatrics:Males (mg/dL) Females (mg/dL) 0-30 Days 8-25 3-28 31 Days-11 Month 15-48 15-43 1-3 Dtzgv42-27 29-54 4-6 Sbagi14-55 26-54 7-9 Cnuju89-76 23-48 10-12 Szjqd55-76 21-48 13-15 Zefrh48-75 21-46 16-18 Ialnm37-62 22-50 The pediatric ranges are derived from the follo wing criteria: Amalia VALDES, Adelia WICK, Elba J et al Pediatric re ference ranges for Lxyb-5-Utwwhldoyvoza and ceruloplasm in. Clin. Chem 1997; 43:S1999 Pediatric Reference Ranges, 2nd., SF Amaliaet al. editors. [employer], [place], [place] 1997. Specimen Blood Narrative Performed At Performing Lab [facility] *SPL [facility] [place] [facility] [place], [address] [place] [phone] Heather Real MD, PhD Performing Organization Address [facility] Phone Number [place] [address] INCOR[place]ATED [address] [facility] Zinc (12/20/2018 9:22 AM CDT) Zinc 38 (L) 60 - 130 mcg/dL [facility] Comment: INCORPORATED This test was developed and its analytical perf ormance characteristics have been determined by [facility]. It has not been cleared or a pproved by the US Food and Drug Administration. This assay has bee n validated pursuant to the CLIA regulations and is used for clinical purposes. Specimen Blood Narrative Performed At Performing Lab [facility] *[facility], [address] [place] [phone] Heather Real MD, PhD Performing Organization Address City/[facility] Phone Number [facility], [place], [place] [address] INCORPORATED [address] [facility] EBV-VCA antibody, IgM (12/20/2018 9:22 AM CDT) EDENILSON FLORES VIRAL CAPSID Negative Negative, Equivocal [facility] ANTIGEN IGM [facility] Specimen Blood Narrative Performed At Edenilson Flores Viral Capsid Antigen IgM Result [facility] Interpretation: </= 0.8 Al Negative 0.9-1.0 Al Equivocal >/= 1.1 Al Positive Performing Organization Address [facility] [place] [address] CENTER EBV-VCA antibody, IgG (12/20/2018 9:22 AM CDT) EDENILSON FLORES VIRAL CAPSID Positive (A) Negative, Equivocal [facility] ANTIGEN IGG [facility] Specimen Blood Narrative Performed At Edenilson Flores Viral Capsid Antigen IgG Result [facility] Interpretation: </= 0.8 Al Negative 0.9-1.0 Al Equivocal >/= 1.1 Al Positive Performing Organization Address [facility] Phone Number [address] [address] [place] Vitamin D, 25-Hydroxy (12/20/2018 9:22 AM CDT) Vitamin D 25-Hydroxy 7.7 6.6 - 49.9 ng/mL [facility] Specimen Blood Narrative Performed At Effective 03/08/2017: Reference Range Ch mela [facility] New: 6.6-49.9 ng/mL Previous: 13.0-47.8 ng/mL Recommended Vitamin D Target Range: 30.0-40.0 ng/mL Performing Organization Address City/[facility] Phone Number [address] [address] [place] RPR (12/20/2018 9:22 AM CDT) RPR Nonreactive Nonreactive [facility] Specimen Blood Performing Organization Address [facility] Phone Number [address] [address] [place] Cytomegalovirus antibody, IgG (12/20/2018 9:22 AM CDT) CYTOMEGALOVIRUS, IGG Positive (A) Negative, Equivocal [facility] Specimen Blood Narrative Performed At CMV IgG Result Interpretation: [facility] </= 0.8 Al Negative 0.9-1.0 Al Equivocal >/=1.1 AlPositive Performing Organization Address [facility] Phone Number [address] [address] [place] aPTT (12/20/2018 9:22 AM CDT) PTT 37.9 (H) 22.5 - 36.0 seconds [facility] Specimen Blood Performing Organization Address [facility] Phone Number [address] [address] [place] Fibrinogen (12/20/2018 9:22 AM CDT) Fibrinogen 207 (L) 225 - 434 mg/dl [facility] Specimen Blood Performing Organization Address [facility] Phone Number [address] [address] [place] Testosterone, free + total (12/20/2018 9:22 AM CDT) Testosterone 143 (L) 250 - 1100 ng/dL [facility] Comment: [facility]POR[facility] Men with clinically significant hypogonadal symptoms and testosterone values repeatedly in the range of t he 200-300 ng/dL or less, may benefit from testosterone treatment after adequate risk and benefits counseling. Testosterone, Free 12.1 (L) 35.0 - 155.0 [facility] Comment: pg/mL INCORPORATED Data from J Clin Invest 1974:53:819-828 and J Clin Endocrinol Metab 1973;36:7349-8068. Men with clinically sig nificant hypogonadal symptoms and testosterone values rep eatedly in the range of the 200-300 ng/dL or less, may benefit from testosterone treatment after adequate risk and benefits couns eling. For additional information, please refer to http://education.[employer]/faq/LMV248 (This link is being provided for informational/ educational pu rposes only.) This test was developed and its analytical perf ormance characteristics have been determined by [facility]. It has not been cleared or a pproved by the US Food and Drug Administration. This assay has bee n validated pursuant to the CLIA regulations and is used for clinical purposes. Specimen Blood Narrative Performed At Performing Lab [facility] *SPL [facility], [address] [place] [phone] Heather Real MD, PhD Performing Organization Address City/State/Zipcode Phone Number [facility], [place] [address] INCORPORATED [address] [facility] Varicella zoster antibody, IgM (12/20/2018 9:22 AM CDT) VZV Ab IgM, EIA 0.49 [facility] Comment: Reference range: < or = 0.90 Interpretive criteria: 0.00-0.90 Negative 0.91-1.09 Equivocal > or = 1.10 Positive Results from any one IgM assay should not be use d as a sole determinant of a current or recent infection. Be cause an IgM test can yield false positive results and lo w levels of IgM antibody may persist for more than 12 months post infection, reliance on a single test result coul d be misleading. If an acute infection is suspected, consider obtaining a new specimen and submit for both IgG and IgM testing in two or more weeks. Specimen Blood Narrative Performed At Performing Lab [facility] *[facility] [address] [place] [phone] Carmine Cooley MD Performing Organization Address City/[facility]/Zipcode Phone Number [facility] [place] [place] [address] INCOR[address]ATED [address] [facility] Varicella zoster antibody, IgG (12/20/2018 9:22 AM CDT) Varicella IgG >8.0 [facility] Specimen Blood Narrative Performed At VARICELLA ZOSTER RESULT INTERPRETATIONS: [facility] <=0.8 AlNonreactive:Presumed non-immune to VZV 0.9-1.0 AlEquiv ocal >=1.1 AlReactive:Presumed immune to VZV Performing Organization Address [facility] Phone Number [address] [address] [place] Uric acid (12/20/2018 9:22 AM CDT) Uric Acid 4.8 2.6 - 7.2 mg/dL [facility] Specimen Blood Narrative Performed At Specimen slightly icteric [facility] Performing Organization Address [facility] Phone Number [address] [address] [place] T3 (12/20/2018 9:22 AM CDT) T3, Total 113 48 - 159 ng/dL [facility] ([facility]) Specimen Blood Performing Organization Address City/[facility] Phone Number [facility] Transferrin (12/20/2018 9:22 AM CDT) Transferrin 197 174 - 382 mg/dL [facility] Specimen Blood Narrative Performed At Specimen slightly icteric [facility] Performing Organization Address City/[facility]/Zipcode Phone Number [address] [phone] [place] TSH (12/20/2018 9:22 AM CDT) TSH 2.10 0.35 - 4.94 uIU/mL [facility] Specimen Blood Performing Organization Address [facility] Phone Number [address] [address] [place] T4 (12/20/2018 9:22 AM CDT) T4, Total 5.7 4.9 - 11.7 ug/dL [facility] ([facility]) Specimen Blood Performing Organization Address City[facility] Phone Number [facility] PSA (12/20/2018 9:22 AM CDT) PSA 0.4 0.0 - 4.0 ng/mL [facility] Specimen Blood Performing Organization Address City[facility] Phone Number [address] [address] [place] Phosphorus (12/20/2018 9:22 AM CDT) Phosphorus 3.6 2.3 - 4.7 mg/dL [facility] Specimen Blood Performing Organization Address [facility] Phone Number [address] [address] [place] Magnesium (12/20/2018 9:22 AM CDT) Magnesium 1.5 (L) 1.6 - 2.6 mg/dL [facility] Specimen Blood Performing Organization Address City[facility] Phone Number [address] [address] [place] Hemoglobin A1c (12/20/2018 9:22 AM CDT) Hemoglobin A1C 6.4 (H) 4.3 - 6.1 % [facility] Specimen Blood Performing Organization Address City/[facility]/Zipcode Phone Number [address] [address] [place] Gamma Glutamyl Transferase (GGT) (12/20/2018 9:22 AM CDT) GGT 33 9 - 64 U/L [facility] Specimen Blood Narrative Performed At Specimen slightly icteric [facility] Performing Organization Address City[facility] Phone Number [address] [phone] C[place] Ferritin (12/20/2018 9:22 AM CDT) Ferritin 69 5 - 275 ng/mL [facility] Specimen Blood Performing Organization Address [facility]/Zipcode Phone Number [address] [phone] C[place] Ethanol (12/20/2018 9:22 AM CDT)Only the most recent of2 resultswithin the time period is included. Ethanol Lvl <10 <=10 mg/dL [facility] Specimen Blood Performing Organization Address [facility] Phone Number [address] [phone] [place] Lipid panel (12/20/2018 9:22 AM CDT) Triglycerides 89 mg/dL [facility] Cholesterol 104 mg/dL [facility] HDL 29 mg/dL [facility] LDL Calculated 57 mg/dL [facility] Specimen Blood Narrative Performed At Triglyceride Reference Range: [facility] Low Risk <150 Szcfynkadt182-119 High Risk 200-499 Very High Risk>=500 Cholesterol Reference Range: Low Risk <200 [id number] High Risk>240 HDL Cholesterol Reference Range: Low Risk >=60 High Risk <40 LDL Cholesterol Reference Range: Optimal<100 Near Rbdopre962-562 Trryvtzdzh875-974 Czpy170-485 Very High >=190 Specimen slightly icteric Performing Organization Address City/State/Zipcode Phone Number [facility] [address] [place] [address] CENTER Drug screen, urine, transplant (12/20/2018 9:21 AM CDT) Specimen Urine Narrative Performed At This result has an attachment that is no t available. Performing Organization Address City/State/Zipcode Phone Number [facility] [address] [place] [address] Urinalysis w/Microscopic (12/20/2018 9:21 AM CDT) Color, UA Dark Yellow [facility] Clarity, UA Clear [facility] Specific [place], UA 1.015 1.001 - 1.035 [facility] pH, UA 6.5 5.0 - 8.0 [facility] Protein, UA 20 mg/dL (A) Negative [facility] Glucose, UA Negative Negative [facility] Ketones, UA Negative Negative [facility] Bilirubin, UA Positive (A) Negative [facility] Blood, UA Negative Negative [facility] Nitrite, UA Negative Negative [facility] Leukocytes, UA Negative Negative [facility] Urobilinogen, UA 8.0 (H) 0.2 - 1.0 mg/dL [facility] RBC, UA <1 /HPF [facility] WBC, UA 1 /HPF [facility] Mucus Rare [facility] Squam Epithel, UA 2 /HPF [facility] Casts 2 /LPF [facility] Specimen Source [facility] Specimen Urine Performing Organization Address City/State/Zipcode Phone Number [facility] [address] [place] [address] CENTER MR abdomen with/without IV contrast (12/19/2018 1:59 PM CDT) Specimen Narrative Performed At FINAL REPORT [facility] TECHNIQUE: MRI of the abdomen WITHOUT an d WITH intravenous contrast. INDICATION: pretransplant liver evaluati on. COMPARISON: None. FINDINGS: LOWER THORAX: Unremarkable. LIVER: Nodular, cirrhotic. A cyst in seg ment VII measures 1 cm on series 3 image 23. A rounded area of art erial segment III measures 1.4 cm on series 12 image 39. No washout or pseudocapsule formation. BILIARY: Gallbladder is unremarkable. No biliary ductal dilatation or filling defect. SPLEEN: 16.5 cm splenomegaly. There is l ikely a calcified granuloma measures 0.7 cm. PANCREAS: No focal masses or ductal dila tation. ADRENALS: No adrenal nodules. KIDNEYS/URETERS: No hydronephrosis or so lid mass lesions. A retropulsive a renal cyst measures 1.3 c m. PERITONEUM/RETROPERITONEUM: Small volume ascites. The partially visualized umbilical hernia contains asc ites with multiple internal septations. LYMPH NODES: No lymphadenopathy. VESSELS: Large esophageal varices. Three left hepatic artery from the left gastric artery. The left gastric originates directly from the aor ta. The main portal vein is patent and measures 1.4 cm in diameter. GI TRACT: No distention or wall thickeni ng. 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 BONES AND SOFT TISSUES: Bilateral gyneco mastia. IMPRESSION: 1.No suspicious focal hepatic lesions. 2.A rounded area of arterial phase hyper enhancement in segment III measures 1.4 cm. No washout or pseudocap rhonda formation. A follow-up MRI is recommended in three months. 3.Cirrhosis with sequelae of portal hype rtension including small volume ascites, splenomegaly, and large esophageal varices. Signed: Isaías Hernandez MD Report Verified Date/Time:12/19/2018 14:51:24 Reading Location: [address] [facility] [place] Procedure Note Interface, External Ris In - 12/19/2018 2:53 PM CDT FINAL REPORT TECHNIQUE: MRI of the abdomen WITHOUT an d WITH intravenous contrast. INDICATION: pretransplant liver evaluati on. COMPARISON: None. FINDINGS: LOWER THORAX: Unremarkable. LIVER: Nodular, cirrhotic. A cyst in seg ment VII measures 1 cm on series 3 image 23. A rounded area of art erial segment III measures 1.4 cm on series 12 image 39. No washout or pseudocapsule formation. BILIARY: Gallbladder is unremarkable. No biliary ductal dilatation or filling defect. SPLEEN: 16.5 cm splenomegaly. There is l ikely a calcified granuloma measures 0.7 cm. PANCREAS: No focal masses or ductal dila tation. ADRENALS: No adrenal nodules. KIDNEYS/URETERS: No hydronephrosis or so lid mass lesions. A retropulsive a renal cyst measures 1.3 c m. PERITONEUM/RETROPERITONEUM: Small volume ascites. The partially visualized umbilical hernia contains asc ites with multiple internal septations. LYMPH NODES: No lymphadenopathy. VESSELS: Large esophageal varices. Three left hepatic artery from the left gastric artery. The left gastric originates directly from the aor ta. The main portal vein is patent and measures 1.4 cm in diameter. GI TRACT: No distention or wall thickeni ng. 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 BONES AND SOFT TISSUES: Bilateral gyneco mastia. IMPRESSION: 1.No suspicious focal hepatic lesions. 2.A rounded area of arterial phase hyper enhancement in segment III measures 1.4 cm. No washout or pseudocap rhonda formation. A follow-up MRI is recommended in three months. 3.Cirrhosis with sequelae of portal hype rtension including small volume ascites, splenomegaly, and large esophageal varices. Signed: Isaías Hernandez MD Report Verified Date/Time: 12/19/2018 1 4:51:24 Reading Location: [address] Radiolog y Reading Room Performing Organization Address City/State/Zipcode Phone Number [employer] XR chest 2 views (12/19/2018 12:54 PM CDT) Specimen Narrative Performed At FINAL REPORT [employer] Chest, PA and lateral. History: Transplant evaluation. Comparison: 10/28/2018. Discussion:The cardiomediastinal keyanna houette and pulmonary vasculature are within normal limits. Th e lungs are clear without evidence of consolidation or effusion. There are no acute osseous abnormalities. The soft tissues are unre markable. IMPRESSION: No acute cardiopulmonary abnormality. Signed: Farzaneh Hathaway MD Report Verified Date/Time:12/19/2018 15:51:17 Reading Location: [facility] Mammo Reading Ro om Procedure Note Interface, External Ris In - 12/19/2018 3:53 PM CDT FINAL REPORT Chest, PA and lateral. History: Transplant evaluation. Comparison: 10/28/2018. Discussion: The cardiomediastinal silho uette and pulmonary vasculature are within normal limits. Th e lungs are clear without evidence of consolidation or effusion. There are no acute osseous abnormalities. The soft tissues are unre markable. IMPRESSION: No acute cardiopulmonary abnormality. Signed: Farzaneh Hathaway MD Report Verified Date/Time: 12/19/2018 1 5:51:17 Reading Location: [facility] Mammo Reading Ro om Performing Organization Address City/State/Zipcode Phone Number [facility] XR mandible 4 views min (12/19/2018 12:53 PM CDT) Specimen Narrative Performed At FINAL REPORT [facility] TECHNIQUE: Minimum four views of the man dible. INDICATION: pretransplant liver evaluati on. COMPARISON: None. FINDINGS: No fracture or dislocation. No periapical lucencies. Caries of a maxillary molar, side indete rminate. Mild degenerative disc changes at C4-C5, C5-C6, and C6-C7. IMPRESSION: No periapical lucency. Caries of a maxillary molar, side indete rminate. Signed: Isaías Hernandez MD Report Verified Date/Time:12/19/2018 16:56:31 Reading Location: [address] Radiolog y Reading Room Procedure Note Interface, External Ris In - 12/19/2018 4:58 PM CDT FINAL REPORT TECHNIQUE: Minimum four views of the man dible. INDICATION: pretransplant liver evaluati on. COMPARISON: None. FINDINGS: No fracture or dislocation. No periapical lucencies. Caries of a maxillary molar, side indete rminate. Mild degenerative disc changes at C4-C5, C5-C6, and C6-C7. IMPRESSION: No periapical lucency. Caries of a maxillary molar, side indete rminate. Signed: Isaías Hernandez MD Report Verified Date/Time: 12/19/2018 1 6:56:31 Reading Location: [address] Radiolog Reading Room Performing Organization Address City/State/Zipcode Phone Number [facility] after 11/17/2018 Insurance Payer Benefit Plan / Group Subscriber ID Type Phone A ddress MEDICARE MEDICARE A B xxxxxxxxxxx Medicare Advance Directives For more information, please contact:[address] [phone] Code Status Date Activated Date Inactivated Comments Full Code 06/04/2019 8:04 AM 06/04/2019 9:17 PM This code status was determined by: Patient Full Code 10/27/2018 11:47 PM 10/31/2018 4:20 PM This code status was determined by: Patient
--- OUTSIDE RECORDS SUMMARY | 2019-11-18 12:49 | XMS REPORT | Summary of Care ---
:1955 Author Organization [facility] Address [address] [place] [id number] Care Team Providers Name Role Phone Yumiko Rod MD Primary Care Provider Reason for Visit Reason Comments Notification Correction to medication rec ord Encounter Details Date Type Department Care Team Description 09/11/2019 Telephone [facility] Pediatric Ilan Shabazz N otification and Adult Primary MD (Correction to Care- [address] medication record) [address] [place] [address] , [facility] [address] [place] [address] [place] [phone] [id number] [phone] Allergies No Known Allergiesdocumented as of this encounter (statuses as of 09/23/2019) Medications Medication Sig Dispensed Refills Start Date End Date Status Blood-Glucose Meter Use BID, DX 1 Each 0 09/18/2018 Active (ACCU-CHEK GUIDE GLUCOSE E11.9 (Brand METER) MiscIndications: upon insurance Type 2 diabetes mellitus approval) without complication, ACCU-CHEK GUIDE without long-term current use of insulin traMADOL (ULTRAM) 50 mg Take 1 tablet by 20 tablet 0 9 Active tabletIndications: mouth every 6 Ventral hernia without (six) hours as obstruction or gangrene needed for Pain (scale 4-6). doxycycline 100 mg Take 1 tablet by 14 tablet 0 01/24/2019 Active tabletIndications: Upper mouth 2 (two) respiratory tract times daily. infection, unspecified type furosemide 40 mg Take 1 tablet by 60 tablet 11 05/17/2019 Active tabletIndications: mouth every Alcoholic cirrhosis of morning and liver with ascites, evening. Essential hypertension metFORMIN 500 mg Take 1 tablet by 60 tablet 11 05/17/2019 Active tabletIndications: Type mouth 2 (two) 2 diabetes mellitus times daily with without complication, meals. without long-term current use of insulin carvedilol 3.125 mg Take 1 tablet by 60 tablet 11 05/17/2019 Active tabletIndications: mouth 2 (two) Essential hypertension times daily with meals. lisinopril 20 mg Take 1 tablet by 90 tablet 3 05/17/2019 Active tabletIndications: mouth daily. Essential hypertension spironolactone 25 mg Take 1 tablet by 60 tablet 11 05/17/2019 Active tabletIndications: mouth 2 (two) Essential hypertension times daily. rifAXIMin 550 mg Take 1 tablet by 60 tablet 5 05/17/2019 Active tabletIndications: mouth 2 (two) Alcoholic cirrhosis of times daily. liver with ascites albuterol 90 Inhale 2 Puffs 8.5 g 2 05/17/2019 A ctive mcg/actuation every 6 (six) inhalerIndications: hours as needed Wheezing for Wheezing or Shortness of Breath. Pitavastatin (LIVALO) 2 Take 2 mg by 90 tablet 3 05/17/2019 Active mg TabIndications: Mixed mouth daily. dyslipidemia Lancets MiscIndications: Use BID, DX 100 Each 11 05/17/2019 Active Type 2 diabetes mellitus E11.9 (Brand without complication, upon insurance without long-term approval) current use of insulin blood sugar diagnostic Use BID, DX 100 Strip 6 05/17/2019 Active (ACCU-CHEK GUIDE) E11.9 (Brand stripIndications: Type 2 upon insurance diabetes mellitus approval) without complication, without long-term current use of insulin lactulose 10 gram/15 mL Take 15 mL by 473 mL 11 05/17/2019 Active solutionIndications: mouth 3 (three) Alcoholic cirrhosis of times daily. liver with ascites hydrOXYzine 50 mg Take 1 tablet by 30 tablet 3 05/17/2019 Active tabletIndications: mouth 3 (three) Alcoholic cirrhosis of times daily as liver with ascites, needed for Primary insomnia Itching. calcipotriene 0.005 % Apply to 60 g 2 05/17/2019 Active creamIndications: area(s) 2 (two) Psoriasiform dermatitis times daily. clobetasol 0.05 % Apply to 60 g 5 05/17/2019 A ctive creamIndications: area(s) 2 (two) Psoriasiform dermatitis times daily. foLIC acid 1 mg Take 1 tablet by 30 tablet 11 05/17/2019 Active tabletIndications: mouth daily. Alcoholic cirrhosis of liver with ascites pantoprazole 40 mg EC Take 1 tablet by 30 tablet 11 05/17/2019 Active tabletIndications: mouth daily. Gastroesophageal reflux disease without esophagitis triamcinolone acetonide Apply to 1 Tube 5 05/17/2019 Active 0.1 % creamIndications: affected area(s) Psoriasiform dermatitis 2 (two) times daily. 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 Decreased platelet count 09/18/2018 Ventral hernia 07/03/2018 Alcoholic cirrhosis of liver with ascites 06/26/2018 Ventral hernia without obstruction or gangrene 019 Overview: Added automatically from request for gary aaron [id number] Screening for colorectal cancer 05/24/2018 Overview: Added automatically from request for gary aaron [id number] Psoriasis 04/11/2018 Essential hypertension 04/11/2018 Obesity (BMI 30-39.9) 09/18/2016 Exomphalos 06/04/2010 documented as of this encounter (statuses as of 09/23/2019) Immunizations Name Administration Dates Next Due Influenza Virus Vaccine Quad IM 3+ YRS 04/11/2018 Td 09/18/2016 documented as of this encounter Social History Tobacco Use Types Packs/Day Years Used Date Former Smoker Cigarettes 55 Quit: 06/06/19 19 Smokeless Tobacco: Never Used Alcohol Use Drinks/Week oz/Week Comments No Sex Assigned at Date Recorded Not on file Job Start Date Occupation Industry Not on file Not on file Not on file Travel History Travel Start Travel End No recent travel history available. documented as of this encounter Last Filed Vital Signs Not on filedocumented in this encounter Plan of Treatment Health Maintenance Due Date Last Done Comments HEPATITIS C (HCV) SCREEN 1955 PNEUMOCOCCAL 0-64 YEARS COMBINED 1962 SERIES (1 of 1 - PPSV23) EYE EXAM 1966 LDL-C 1966 URINE MICROALBUMIN 1966 DTaP,Tdap,and Td Vaccines (1 - 11/29/1967 09/18/2016 Tdap) FOOT EXAM 1974 Zoster Recombinant Vaccine 2006 (SHINGRIX) (1 of 2) LUNG CANCER SCREEN: Recommended 10/17/2017 10/17/2016 for age 55-80 with 30 + pack year history INFLUENZA VACCINE (#1) 2019 04/11/2018 HgA1C 07/24/2019 01/21/2019, 07/03/2018, 06/26/2018, Additional history exists CREATININE (SERUM) 10/26/2019 10/25/2018, 09/03/2018, 07/04/2018, Additional history exists COLONOSCOPY 06/12/2028 06/12/2018 documented as of this encounter Goals Goal Patient Goal Associated Recent Patient-Stated? Author Type Problems Progress Quit using Tobacco Use No Venita, tobacco Ivis (cigarettes, smokeless, etc) documented as of this encounter Implants Implanted Type Area Registered Safety Engineer Device Shelf Model / Identifier Expiration Date Ser ial / Lot Mesh [place] [employer] Cm - [id number] N/A: Abdomen Tyco/Covidien 09/25/2022 [id number] / Implanted: Qty: 1 on 07/03/2018 by Shamar Tello MD at [facility] P [id number] / [id number] documented as of this encounter Results Not on filedocumented in this encounter Insurance Payer Benefit Plan / Subscriber ID Effective Dates Phone Addre ss Type Group MEDICARE MEDICARE PART xxxxxxxxxxx 2018-[place] [phone] Medicare A & B [place] 2 [id number] DARYL DUNBAR [id number] documented as of this encounter
--- OUTSIDE RECORDS SUMMARY | 2019-11-18 12:49 | XMS REPORT | Continuity of Care Document ---
:1955 Author Organization [facility] t Address [address] [place] [address] Care Team Providers Name Role Phone Mauricio CONTRERAS R Attending Clinician Unavailable Rosalia Stein Attending Clinician Unavailable Harika GOMEZ Attending Clinician Bettie Swift MD Attending Clinician Maury Steinberg RN Attending Clinician Unavailable Albaro CONTRERAS Attending Clinician Unavailable Jame Michaels MD Attending Clinician Sunil CONTRERAS Attending Clinician Unavailable Monae An MD Attending Clinician MONAE AN Attending Clinician Unavailable Raman Anaya NP Attending Clinician Angeli Pizarro NP Attending Clinician RAMAN ANAYA Attending Clinician Unavailable Alli Dan MD Attending Clinician ALLI DAN Attending Clinician Unavailable Doctor Unassigned, Name Attending Clinician Unavailable Yumiko Rod MD Attending Clinician Anthony Murray RN Attending Clinician Unavailable Juan J Veengas Attending Clinician Unavailable Albaro Attending Clinician Unavailable Joann SANONW, M Attending Clinician Unavailable Ministerio Malone MD Attending Clinician Yoni Attending Clinician Unavailable Jennifer Ernandez PA-C Attending Clinician BUBBA LI Attending Clinician Unavailable MONAE AN Admitting Clinician Unavailable BUBBA LI Admitting Clinician Unavailable Payers Payer Name Policy Policy Number Effective Expiration Source Type Date Date MEDICAREMEDICARE A xxxxxxxxxxx [facility] Problems Condition Condition Condition Status Onset Resolution Last Treating Co mments Source Name Details Category Date Date Treatment Clinician Date Cirrhosis Cirrhosis Disease Active [facility] Center History of History of Disease Active 2018-[address] alcohol alcohol 0-21 [facility] use use 00:00: Medical 00 Center 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 Psoriasis Psoriasis Disease Active Last [facility] 7- [facility] - 00:00: t & Plan: Medical 00 Continue Center follow up with dermatolo gy/rheuma tology. Immunity Immunity Disease Active [facility] status [facility] 7 [facility] - testing testing 00:00: Medical 00 Center SBP SBP Disease Active [facility] (spontaneo (spontaneo 6-04 Esther kes - us us 00:00: Medical bacterial bacterial 00 Cent er peritoniti peritoniti s) s) Portal Portal Disease Active [facility] hypertensi hypertensi 6-04 Esther kes - on on 00:00: Medical 00 Center Septic Septic Disease Active [facility] shock shock 6-04 [facility] - 00:[facility]: Medical 00 Center Hepatic Hepatic Disease Active [facility] encephalop encephalop 6-04 Esther kes - athy athy 00:00: Medical 00 Center Sepsis Sepsis Disease Active [facility] - 00:[facility]: Medical 00 Center Alcoholic Alcoholic Disease Active [facility] cirrhosis cirrhosis 10-03 Assesspooja garcia - of liver of liver 00:00: t & Plan: Med ical with with 00 Cirrhosis Center ascites ascites secondary to ETOH/AGUILAR . He will continue follow up with hepatolog y. Ascites Ascites Disease Active [facility] due to due to 10-03 Assesspooja Pedraza - alcoholic alcoholic 00:00: t & Plan: M edical cirrhosis cirrhosis [address] and leg swelling is controlle d with Lasix 40 mg and Aldactone 100 mg a day; restrict salt to 2 gm per day. Low carb but high protein diet. Screening Screening Disease Active [facility] for cancer for cancer 10-03 [facility] - 00:00: t & Plan: Medical 00 Cirrhosis Center , regardles s of etiology, is a risk factor for hepatocel lular carcinoma (HCC), with an annual incidence of 1.5-7%. We recommend surveilla nce for HCC with abdominal imaging and alphafeto protein every 6 months. MRI 07/17 did not show any liver lesion. 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 Family History Family Member Diagnosis Comments Start Date Stop Date Source Natural brother Diabetes [facility] Natural brother Hypertension [facility] Natural father Diabetes [facility] Natural mother Liver disease [facility] Natural sister Cancer [facility] Social History Social Habit Start Date Stop Date Quantity Comments Source History [facility] - Alcohol Std Drinks Medica Center History [facility] Alcohol Binge Medical [address] Sex Assigned At [facility] History LAOH 2018-10-03 2018-10-03 1 [facility] - Alcohol Frequency 00:00:00 00:00:00 [facility] History of tobacco 2017-10-03 Current smoker I [facility] - use 00:00:00 [facility] Cigarettes smoked 2015-12-15 2015-12-15 [facility] current (pack per 00:00:00 00:00:00 day) - Reported Cigarette 2015-12-15 2015-12-15 [facility] pack-years 00:00:00 00:00:00 Alcohol intake 2015-12-15 2015-12-15 [facility] 00:00:00 00:00:00 Alcohol Comment 2010-06-15 2010-06-15 6 packs/day-last [facility] 00:00:00 00:00:00 time yesterday Smoking Status Start Date Stop Date Source Former smoker 2019-06-05 00:00:00 2019-06-05 00:00:[address] [facility] Current every day 2015-12-15 00:00:00 [facility] smoker Medications Ordered Filled Start Stop Current Ordering Indication Dosage Frequency Signature Comments Components Source Medication Medication Date Date Medication? Clinician (SIG) Name Name omeprazole Yes 40mg QD Take [address] (PRILOSEC) 1-07 by mouth [facility] - 40 MG 08:16: daily. Medical capsule 30 Center thiamine Yes 100mg QD Take [address] (VITAMIN 1-07 mg by [facility] - B-1) 100 MG 08:16: mouth Medic al tablet 30 daily. Uriah furosemide Yes 80mg Q.5D Take 2 [facility] (LASIX) 40 1-07 tablets [facility] - MG tablet 00:00: (80 mg Medica l 00 total) by Center mouth 2 (two) times daily. furosemide 2019- No 80mg Q.5D Take [address] (LASIX) 40 1-07 01-07 tablets [facility] - MG tablet 00:00: 00:00 (80 mg Medic al 00 :00 total) by Center mouth 2 (two) times daily. rifAXIMin 2018-05 Yes 550mg Q.5D Take [address] 550 mg Tab 0-03 mg by [facility] - 12:04: mouth 2 Medical 32 (two) Center times daily. clobetasol Yes 1{appli Q.5D Apply [address] (TEMOVATE) 7-22 cation} applicatio [facility] - 0.05 % 00:00: n Medical cream 00 topically Center 2 (two) times daily. pitavastati Yes 2mg QD Take [address] n calcium 7-11 by mouth [facility] - (LIVALO) 2 09:19: daily . Medi jeevan mg Tab 47 Center tablet thiamine Yes TK [address] [address] 100 mg Tab 6-24 D [facility] - tablet 00:00: Medical 00 Uriah ALPRAZolam 0 Yes TK [address] (XANAX) 1 6-18 BID PRF [facility] - MG tablet 00:00: ANXIETY Medic al 00 Uriah folic acid Yes TK [address] (FOLVITE) 1 6-13 QD [facility] - MG tablet 00:00: Medical 00 Uriah rifAXIMin 2019- No 550mg Q.5D Take [address] 550 mg Tab 6-05 07-05 tablet [facility] - 00:00: 23:59 (550 mg Medical 00 :00 total) by Center mouth 2 (two) times daily for 30 days. spironolact Yes 100mg Q.5D Take [address] one 6-02 mg by [facility] - (ALDACTONE) 10:08: mouth 2 Med ical 100 MG 46 (two) Center tablet times daily. lactulose Yes TK [address] (CHRONULAC) 5-04 PO TID [facility] - 10 gram/15 00:00: Medical mL solution 00 Uriah furosemide 2020- No TK [address] [facility] (LASIX) 40 4-22 01-07 QAM AND [facility] - MG tablet 00:00: 00:00 Q Medical 00 :00 Uriah triamcinolo Yes 1{appli Q.5D Apply [address] ne 3-10 cation} applicatio [facility] - (KENALOG) 00:00: n Medical 0.1 % 00 topically Uriah topical 2 (two) cream times daily. metFORMIN Yes 500mg Take [address] [facility] (GLUCOPHAGE 2-12 mg by [facility] - ) 500 MG 00:00: mouth 2 Medica l tablet 00 (two) Center times daily with breakfast and dinner . carvedilol Yes 6.25mg Take 6.[address] (COREG) 2-06 mg by [facility] - 3.125 MG 00:00: mouth 2 Medica l tablet 00 (two) Center times daily with breakfast and dinner . lisinopril Yes 20mg QD Take [address] (PRINIVIL,Z 2-06 by mouth [facility] - ESTRIL) 20 00:00: daily . Medi jeevan MG tablet 00 Center pantoprazol Yes 40mg QD Take [address] e 1-09 by mouth [facility] - (PROTONIX) 00:00: daily . Medi jeevan 40 MG 00 Uriah tablet hydrOXYzine 2017-05 Yes 50mg Take [address] (ATARAX) 50 1-14 by mouth Luke s - MG tablet 00:00: as needed Med ical 00 . Center traMADol Yes Recurrent 50mg Take 1 Ocampo rris (ULTRAM) 50 7-19 umbilical tablet by Health mg tablet 00:00: hernia mouth 00 every 6 hours as needed for Pain. Immunizations Ordered Immunization Filled Immunization Date Status Commen ts Source Name Name Pneumococcal 2018-10-28 Completed [facility] Conjugate (Prevnar) 00:00:00 Medic [facility] 13-Valent Vital Signs Vital Name Observation Time Observation Value Comments Source Systolic blood 2019-06-04 16:00:00 144 mm[Hg] [facility] Diastolic blood 2019-06-04 16:00:00 71 mm[Hg] [facility] Heart rate 2019-06-04 16:00:00 71 /min [facility] Respiratory rate 2019-06-04 16:00:00 18 /min [facility] Oxygen saturation in 2019-06-04 12:15:00 98 /min [facility] Arterial blood by Medical Ce nter Pulse oximetry Body temperature 2019-06-04 07:49:00 36.33 Corrina [facility] Body height 2019-06-04 07:49:00 167.6 cm [facility] Body weight Measured 2019-06-04 07:49:00 102.967 kg [facility] BMI 2019-06-04 07:49:00 36.64 kg/m2 [facility] Procedures Procedure Date / Time Performing Clinician Source Performed COMPREHENSIVE METABOLIC 2019-10-07 09:28:00 Ankur Dan [facility] CBC W/PLT COUNT & AUTO 2019-10-07 09:28:[address] [facility] BILIRUBIN, DIRECT 2019-10-07 09:28:00 Ankur Dan [facility] ALPHA FETOPROTEIN (AFP), 2019-10-07 09:28:00 Ankur Dan [facility] TUMOR MARKER [facility] PROTHROMBIN TIME/INR 2019-10-07 09:28:00 Ankur Dan [facility] PLATELET ESTIMATION 2019-10-07 09:28:00 Ankur Dan [facility] ALPHA FETOPROTEIN (AFP), 2019-07-10 [facility] CBC W/PLT COUNT & AUTO 2019-07-10 [facility]IN[facility] 2019-07-10 00:00:00 [facility] COMPREHENSIVE METABOLIC 2019-07-10 00:00:[facility] PLATELET ESTIMATION 2019-07-10 00:00:00 [facility] REPORT OF PROCEDURE - 2019-06-05 13:52:03 Provider [facility] ENDOSCOPY SCAN [facility] CARDIAC CATH REPORT - SCAN 2019-06-05 13:52:01 Provider, [facility] VASCULAR DIAGRAM -SCAN 2019-06-05 13:51:59 Provider, [facility] R & L CATH / CORONARY 2019-06-04 09:46:00 Jaspal An [facility] - ANGIOS / PCI [facility] STENT / CAROTID MCR - IP 2019-06-04 09:46:00 Jaspal An [facility] - PROC ONLY [facility] BASIC METABOLIC PANEL (7) 2019-06-04 08:38:00 Jaspal An vtkaz [facility] CBC W/PLT COUNT & AUTO 2019-06-04 08:38:00 Jaspal An [facility] MISCELLANEOUS LAB ORDER 2019-05-08 13:37:00 Ankur Dan [facility] BASIC METABOLIC PANEL (7) 2019-05-08 13:37:00 Ankur Dan [facility] HEPATIC FUNCTION PANEL 2019-05-08 13:37:00 Ankur Dan [facility] PROTHROMBIN TIME/INR 2019-05-08 13:37:00 Ankur Dan [facility] ALPHA FETOPROTEIN (AFP), 2019-05-08 13:37:00 Ankur Dan [facility] CBC W/PLT COUNT & AUTO 2019-05-08 13:37:[address] [facility] BASIC METABOLIC PANEL (7) 2019-02-28 12:47:00 Ankur Dan [facility] HEPATIC FUNCTION PANEL 2019-02-28 12:47:00 Ankur Dan [facility] PROTHROMBIN TIME/INR 2019-02-28 12:47:00 Ankur Dan [facility] ALPHA FETOPROTEIN (AFP), 2019-02-28 12:47:00 Ankur Dan [facility] CBC W/PLT COUNT & AUTO 2019-02-28 12:47:[address] [facility] TRANSFUSION SERVICE REPORT 2018-12-21 17:54:46 Provider, Default [facility] TRANSFUSION SERVICE REPORT 2018-12-21 17:54:37 Provider, Default [facility] BLOOD GAS, ARTERIAL 2018-12-20 10:26:00 Ankur Dan [facility] BLOOD TYPING, AUTOMATED 2018-12-20 09:47:00 Ankur Dan [facility] FIBRINOGEN 2018-12-20 09:22:00 Ankur Dan [facility] COMPREHENSIVE METABOLIC 2018-12-20 09:22:00 Ankur Dan [facility] BILIRUBIN, DIRECT 2018-12-20 09:22:00 Ankur Dan [facility] GAMMA GLUTAMYL TRANSFERASE 2018-12-20 09:22:00 Ankur Dan [facility] (GGT) [facility] CALCIUM, IONIZED 2018-12-20 09:22:00 Ankur Dan [facility] MAGNESIUM 2018-12-20 09:22:00 Ankur Dan [facility] PHOSPHORUS 2018-12-20 09:22:00 Ankur Dan [facility] PROTHROMBIN TIME/INR 2018-12-20 09:22:00 Ankur Dan [facility] APTT 2018-12-20 09:22:00 Ankur Dan [facility] TRANSFERRIN 2018-12-20 09:22:00 Ankur Dan [facility] FERRITIN 2018-12-20 09:22:00 Ankur Dan [facility] CERULOPLASMIN 2018-12-20 09:22:00 Ankur Dan [facility] VITAMIN D, 25-HYDROXY 2018-12-20 09:22:00 Ankur Dan I [facility] LIPID PANEL 2018-12-20 09:22:00 Ankur Dan [facility] HEMOGLOBIN A1C 2018-12-20 09:22:00 Ankur Dan [facility] ETHANOL 2018-12-20 09:22:00 Ankur Dan [facility] CARBOHYDRATE ANTIGEN 19-9 2018-12-20 09:22:00 Ankur Dan [facility] (CA 19-9) [facility] ZINC 2018-12-20 09:22:00 Ankur Dan [facility] URIC ACID 2018-12-20 09:22:00 Ankur Dan [facility] TSH 2018-12-20 09:22:00 Ankur Dan [facility] T3 2018-12-20 09:22:[address] [facility] T4 2018-12-20 09:22:00 Ankur Dan [facility] HEPATITIS A ANTIBODY, IGG 2018-12-20 09:22:[address] [facility] HIV-1 ANTIGEN WITH HIV-1/2 2018-12-20 09:22:00 Ankur Dan [facility] CYTOMEGALOVIRUS ANTIBODY, 2018-12-20 09:22[facility] CYTOMEGALOVIRUS ANTIBODY, 2018-12-20 09:22:00 [facility] IGM [facility] EBV ANTIBODY, IGM 2018-12-20 09:22:00 Ankur Dan [facility] RPR 2018-12-20 09:22:[address] [facility] T SPOT TB 2018-12-20 09:22:00 Ankur Dan [facility] PSA 2018-12-20 09:22:[address] [facility] TESTOSTERONE, FREE + TOTAL 2018-12-20 09:22:00 Ankur Dan [facility] VARICELLA ZOSTER ANTIBODY, 2018-12-20 09:22:00 Ankur Dan [facility] CRYPTOCOCCAL ANTIGEN 2018-12-20 09:22:00 Ankur Dan [facility] [id number]-[id number]\, 2018-12-20 09:22:[address] [facility] ALPHA-1 ANTITRYPSIN 2018-12-20 09:22:00 Ankur Dan [facility] ANALYSIS [facility] HEPATITIS C ANTIBODY 2018-12-20 09:22:00 Ankur Dan [facility] TYPE AND SCREEN, AUTOMATED 2018-12-20 09:22:00 Ankur Dan [facility] CBC W/PLT COUNT & AUTO 2018-12-20 09:22:[address] [facility] DRUG SCREEN, URINE, 2018-12-20 09:21:00 Ankur Dan [facility] TRANSPLANT [facility] URINALYSIS W/ MICROSCOPIC 2018-12-20 09:21:00 Ankur Dan [facility] MR ABDOMEN WITH & WITHOUT 2018-12-19 13:59:00 Ankur Dan [facility] CONTRAST [facility] XR CHEST 2 VIEWS 2018-12-19 12:54:00 Ankur Dan [facility] XR MANDIBLE 4 VIEWS MIN 2018-12-19 12:53:00 Ankur Dan [facility] BASIC METABOLIC PANEL (7) 2018-12-06 09:49:00 Ankur Dan [facility] HEPATIC FUNCTION PANEL 2018-12-06 09:49:00 Ankur Dan [facility] PROTHROMBIN TIME/INR 2018-12-06 09:49:00 Ankur Dan [facility] ETHANOL 2018-12-06 09:49:00 Ankur Dan [facility] CBC W/PLT COUNT & AUTO 2018-12-06 09:49:[address] [facility] Plan of Care Planned Activity Planned Date Details Comments Source Future Scheduled 2028-06-12 COLON CANCER SCREENING [facility] Test 00:00:00 COLONOSCOPY [code = [facility] COLON CANCER SCREENING COLONOSCOPY] Future Scheduled 2020-02-27 IMM Influenza Seasonal [facility] Test 00:00:00 Feb to July (>/= 19 yrs) [code = IMM Influenza Seasonal Feb to July (>/= 19 yrs)] Future Scheduled 2020-01-[address] [facility] - Test 00:00:00 (Season Ended) [code = [facility] INFLUENZA VACCINE (Season Ended)] Future Scheduled 2019-05-29 MEDICARE ANNUAL [facility] - Test 00:00:00 WELLNESS (YEAR 2 or Medical Center FIRST YEAR if no IPPE) [code = MEDICARE ANNUAL WELLNESS (YEAR 2 or FIRST YEAR if no IPPE)] Future Scheduled 2018-12-[address] [facility] - Test 00:00:00 2-64 YEARS AT RISK (2 Medica l Center of 3 - PPSV23) [code = PNEUMOCOCCAL VACCINE 2-64 YEARS AT RISK (2 of 3 - PPSV23)] Future Scheduled 2006 Colorectal Cancer Scrn [facility] Test 00:00:00 Annual (FIT/FOBT) Age 50 to 75 [code = Colorectal Cancer Scrn Annual (FIT/FOBT) Age 50 to 75] Encounters Start End Encounter Admission Attending Care Care Encounter Source Date/Time Date/Time Type Type Clinicians Facility Department ID 2019-09-11 2019-09-11 Telephone Harika PANUBIA [id number] 00:00:00 00:00:00 Ilan Modi [id number] [place] [id number] Professio [phone] [address] 2019-02-08 2019-02-08 Orders Doctor LICONA [id number] 00:00:00 00:00:00 Only Unassigned, TOY [id number] [facility] [id number] 2019-01-31 2019-01-31 Orders Doctor LICONA [id number] 00:00:00 00:00:00 Only Unassigned, TOY [id number] [facility] [id number] [id number] 2019-01-23 2019-01-23 Telephone Jase Rod [facility] [id number] 00:00:00 00:00:00 Yumiko Modi [id number] [place] [id number] Professio [phone] [address] 2019-01-21 2019-01-21 Office Marcel Jase [facility] [id number] 15:52:08 16:26:09 Visit Yumiko Modi [id number] [place] [id number] Professio [phone] [address] 2019-01-17 2019-01-17 Orders Doctor MONAE [id number] 00:00:00 00:00:00 Only Unassigned, TOY [id number] [place] [address].686 [id number] [id number] 2019-01-02 2019-01-02 Orders Doctor MONAE [id number] 00:00:00 00:00:00 Only Unassigned, TOY [id number] [place] [address]2.686 [id number] [id number] 2018-12-28 2018-12-28 Orders Doctor MONAE Lulu.[id number] 00:00:00 00:00:00 Only Unassigned, TOY [id number] [place] [address]686 [id number] [id number] 2016-10-19 2016-10-19 Orders Doctor MONAE Lulu.[id number] 00:00:00 00:00:00 Only Unassigned, TOY [id number] [place] [address]686 [phone] [id number] Results Test Description Test Time Test Comments Results Result Comments Source Comprehensive metabolic panel 2019-10-08 10:17:00 Test Item Value Reference Range Interpretation Comme nts Glucose (test code = 109 mg/dL 65-99 H Fasting ) reference inter holly For someone without known diabetes, a glu cose valuebetween 10 0 and 125 mg/dL is consis tent withprediabetes and should be confi rmed with afollow-up test . BUN (test code = 8 mg/dL 20100929) Creatinine (test code = 0.67 mg/dL 0.7-1.25 L For patients >49 years of 20130722) age, the refere nce limitfor Creati nine is approximately 1 3% higher for peopleident ified as -Christelle n. eGFR If NonAfricn Am 103 > OR = 60 (test code = 0306824) mL/min/1.73m2 eGFR If Africn Am (test 119 > OR = 60 code = 9631482) mL/min/1.73m2 BUN/Creatinine Ratio 12 6- 22 (calc) (test code = 7011586) Sodium (test code = 141 mmol/L 135-937 0125793) Potassium, Serum (test 3.8 mmol/L 3.5-5.3 code = 6160678) Chloride (test code = 107 mmol/L 98-666 3792060) Carbon Dioxide, Total 26 mmol/L 20-32 (test code = 7641469) Calcium, Serum (test 8.8 mg/dL 8.6-10.3 code = 7213518) Protein, Total, Serum 6.7 g/dL 6.1-8.1 (test code = 20101003) Albumin (test code = 2.8 g/dL 3.6-5.1 L ) GLOBULIN (QUEST) (test 3.9 1.9- 3.7 g/dL H code = 4636918) (calc) Albumin Globulin Ratio 0.7 1.0- 2.5 L (test code = 1759-0) (calc) Bilirubin, Total (test 2.4 mg/dL 0.2-1.2 H code = 20101005) Alkaline Phosphatase, S 149 U/L 35-144 H (test code = 6768-6) AST (SGOT) (test code = 33 U/L 10-35 20101009) ALT (SGPT) (test code = 20 U/L 9-46 ) MADALYN (test code = MADALYN) FASTING:YESFASTING: YES RAC (test code = RAC) Performing Organization Information: Site ID: [id number] Name: [facility] Address: [address] [place] [id number] Director: Terrell Romeo Lab Interpretation Abnormal (test code = 78647-6) [facility] [id number] 10:17:00 Test Item Value Reference Range Interpretation Comments Bilirubin, Total (test 2.4 mg/dL 0.2-1.2 H code = 20101005) Bilirubin, Direct (test 0.7 mg/dL < OR = 0.2 H code = 6822888) Bilirubin, Indirect 1.7 0.2- 1.2 mg/dL H (test code = 0599237) (calc) MADALYN (test code = MADALYN) FASTING:YESFASTING: YES RAC (test code = RAC) Performing Organization Information: Site ID: [id number] Name: [facility] Address: [address] [place] [address] Director: Terrell Romeo Lab Interpretation Abnormal (test code = 80604-1) [facility] with platelet count + automated [id number] 10:17:00 Test Item Value Reference Range Interpretation Comments WBC (test code = 5.8 3.8- 10.8 ) Thousand/uL RBC (test code = 789-8) 3.44 4.20- 5.80 L Million/uL Hemoglobin (test code = 8.7 g/dL 13.2-17.1 L ) Hematocrit (test code = 27.1 % 38.5-50 L ) MCV (test code = 78.8 fL 80-100 L ) MCH (test code = 25.3 pg 27-33 L ) MCHC (test code = 32.1 g/dL 32-36 ) RDW (test code = 15.1 % 11-15 H ) Platelets (test code = 88 140- 400 L ) Thousand/uL MPV (test code = 10.7 fL 7.5-12.5 ) # Neutros (test code = 3010 1,500 - 7,213 3424982) cells/uL # Lymphs (test code = 1937 850- 3,900 731-0) cells/uL # Monos (test code = 621 200- 950 cells/uL ) # Eos (test code = 180 15- 500 cells/uL 711-2) # Baso (test code = 52 0- 200 cells/uL 704-7) % Neutros (test code = 51.9 % ) % Lymphs (test code = 33.4 % 20191219) % Monos (test code = 10.7 % ) % Eos (test code = 3.1 % 20191217) % Baso (test code = 0.9 % 20191218) MADALYN (test code = MADALYN) FASTING:YESFASTING: YES RAC (test code = RAC) Performing Organization Information: Site ID: RGA Name: [facility] Address: [address] [place] [phone] Director: Terrell Romeo Lab Interpretation Abnormal (test code = 47904-1) [facility] CenterProthrombin time/[id number] 10:17:00 Test Item Value Reference Range Interpretation Comments INR (test code = 1.2 H Reference R mela ) 0.9-1.1Moderate -i ntensity Warfar in Therapy 2.0-3.0Higher-i nt ensity Warfarin Therapy 3.0-4 .0 PT (test code = 12.9 9.0- 11.5 sec H For more ) information on this test, go to:[email or web address] 04 MADALYN (test code = FASTING:YESFASTING MADALYN) : YES RAC (test code = Performing RAC) Organization Information: Site ID: RGA Name: [facility] Address: [address] [place] [phone] Director: Terrell Romeo Lab Interpretation Abnormal (test code = 58251-1) [facility] CenterAlpha fetoprotein (AFP), tumor [id number] 10:17:00 Test Item Value Reference Interpretation Comments Range Alpha-Feto 3.2 ng/mL <6.1 This test was performed protein using the Beckm an (test code Coulterchemilum inescent = 1834-1) method. Values obtained fromdifferent a ssay methods cannot be usedinterchange ably. AFP levels, regardl ess ofvalue, should not be i nterpreted as absoluteevidenc e of the presence or abs ence of disease. MADALYN (test FASTING:YESFASTING code = : YES MADALYN) RAC (test Performing code = Organization RAC) Information: Site ID: IG Name: [facility] Address: [address] [place] [address] Director: Dr. Terrell Romeo [facility] CenterPLATELET [id number] 10:17:00 Test Item Value Reference Range Interpretation Comments Platelet Estimate (test DECREASED ADEQUATE A code = 69645-5) MADALYN (test code = MADALYN) FASTING:YESFASTING: YES RAC (test code = RAC) Performing Organization Information: Site ID: RGA Name: [facility] Address: [address] [place] [address] Director: Terrell Romeo Lab Interpretation (test Abnormal code = 39634-6) [facility] metabolic [id number] 09:29:00 Test Item Value Reference Range Interpretation Comments Sodium (test code = 137 meq/L 289-967 4348-2) Potassium (test code = 3.7 meq/L 3.5-5.1 2823-3) Chloride (test code = 107 meq/L 98-107 2075-0) CO2 (test code = 25 meq/L 22-29 2028-9) BUN (test code = 5 mg/dL 7-21 L 3094-0) Creatinine (test code 0.70 mg/dL 0.57-1.25 = 2160-0) Glucose (test code = 94 mg/dL 70-105 2345-7) Calcium (test code = 7.9 mg/dL 8.4-10.2 L 87699-6) EGFR (test code = 114 mL/min/1.73 [place] [address]-2) NOT ACCURATE CREATININE CLEARANCE IN PREDICTING GLOMERULAR FILTRATION RATE . ESTIMATED GFR I S NOT APPLICABLE FOR DIALYSIS PATIENTS. MADALYN (test code = MADALYN) Specimen slightly icteric Lab Interpretation Abnormal (test code = 47503-3) [facility] METABOLIC [id number] 09:29:00 Test Item Value Reference Range Interpretation Comments SODIUM (BEAKER) 137 meq/L 136-145 (test code = 381) POTASSIUM (BEAKER) 3.7 meq/L 3.5-5.1 (test code = 379) CHLORIDE (BEAKER) 107 meq/L 98-107 (test code = 382) CO2 (BEAKER) (test 25 meq/L 22-29 code = 355) BLOOD UREA NITROGEN 5 mg/dL 7-21 L (BEAKER) (test code = 354) CREATININE (BEAKER) 0.70 mg/dL 0.57-1.25 (test code = 358) GLUCOSE RANDOM 94 mg/dL 70-105 (BEAKER) (test code = 652) CALCIUM (BEAKER) 7.9 mg/dL 8.4-10.2 L (test code = 697) EGFR (BRITTANYAKER) (test 114 mL/min/1.73 ESTIM ATED GFR IS code = 1092) sq m NOT ACCURATE CREATININE CLEARANCE IN PREDICTING GLOMERULAR FILTRATION RATE . ESTIMATED GFR I S NOT APPLICABLE FOR DIALYSIS PATIEN TS. Specimen slightly ictericCBC with platelet count + automated [id number] 08:54:00 Test Item Value Reference Range Interpretation Comments WBC (test code = 6690-2) 6.3 3.5- 10.5 K/L RBC (test code = 789-8) 3.34 4.63- 6.08 M/L L MCHC (test code = 786-4) 32.3 32.3- 36.5 GM/DL L Hematocrit (test code = 4544-3) 29.4 % 40.1-51 L MCV (test code = 787-2) 88.0 fL 79-92.2 MCH (test code = 785-6) 28.4 pg 25.7-32.2 RDW (test code = 788-0) 16.7 % 11.6-14.4 H Platelets (test code = 777-3) 69 150- 450 K/CU MM L MPV (test code = 16337-9) 10.0 fL 9.4-12.4 nRBC (test code = 413) 0 0- 0 /100 WBC % Neutros (test code = 429) 49 % % Lymphs (test code = 430) 37 % % Monos (test code = 431) 11 % % Eos (test code = 432) 3 % % Baso (test code = 437) 1 % # Neutros (test code = 670) 3.07 1.78- 5.38 K/L # Lymphs (test code = 414) 2.31 1.32- 3.57 K/L # Monos (test code = 415) 0.69 0.30- 0.82 K/L # Eos (test code = 416) 0.17 0.04- 0.54 K/L # Baso (test code = 417) 0.06 0.01- 0.08 K/L Immature Granulocytes-Relative 1 % 0-1 (test code = 2801) Lab Interpretation (test code = Abnormal 61780-9) [facility] W/PLT COUNT & AUTO [id number] 08:54:00 Test Item Value Reference Range Interpretation Comments WHITE BLOOD CELL COUNT (BEAKER) 6.3 K/ L 3.5-10.5 (test code = 775) RED BLOOD CELL COUNT (BEAKER) 3.34 M/ L 4.63-6.08 L (test code = 761) HEMOGLOBIN (BEAKER) (test code = 9.5 GM/DL 13.7-17.5 L 410) HEMATOCRIT (BEAKER) (test code = 29.4 % 40.1-51.0 L 411) MEAN CORPUSCULAR VOLUME (BEAKER) 88.0 fL 79.0-92.2 (test code = 753) MEAN CORPUSCULAR HEMOGLOBIN 28.4 pg 25.7-32.2 (BEAKER) (test code = 751) MEAN CORPUSCULAR HEMOGLOBIN CONC 32.3 GM/DL 32.3-36.5 (BEAKER) (test code = 752) RED CELL DISTRIBUTION WIDTH 16.7 % 11.6-14.4 H (BEAKER) (test code = 412) PLATELET COUNT (BEAKER) (test code 69 K/CU MM 150-450 L = 756) MEAN PLATELET VOLUME (BEAKER) 10.0 fL 9.4-12.4 (test code = 754) NUCLEATED RED BLOOD CELLS (BEAKER) 0 /100 WBC 0-0 (test code = 413) NEUTROPHILS RELATIVE PERCENT 49 % (BEAKER) (test code = 429) LYMPHOCYTES RELATIVE PERCENT 37 % (BEAKER) (test code = 430) MONOCYTES RELATIVE PERCENT 11 % (BEAKER) (test code = 431) EOSINOPHILS RELATIVE PERCENT 3 % (BEAKER) (test code = 432) BASOPHILS RELATIVE PERCENT 1 % (BEAKER) (test code = 437) NEUTROPHILS ABSOLUTE COUNT 3.07 K/ L 1.78-5.38 (BEAKER) (test code = 670) LYMPHOCYTES ABSOLUTE COUNT 2.31 K/ L 1.32-3.57 (BEAKER) (test code = 414) MONOCYTES ABSOLUTE COUNT (BEAKER) 0.69 K/ L 0.30-0.82 (test code = 415) EOSINOPHILS ABSOLUTE COUNT 0.17 K/ L 0.04-0.54 (BEAKER) (test code = 416) BASOPHILS ABSOLUTE COUNT (BEAKER) 0.06 K/ L 0.01-0.08 (test code = 417) IMMATURE GRANULOCYTES-RELATIVE 1 % 0-1 PERCENT (BEAKER) (test code = 2801) Miscellaneous lab [id number] 07:03:00Scan ResultQUEST NON-INTERFACED LABCHI [facility] JosephHEPATITIS C [id number] 12:25:00 Test Item Value Reference Range Interpretation Comments HEPATITIS C ANTIBODY (BEAKER) (test Reactive Nonreactive A code = 367) ALPHA FETOPROTEIN (AFP), TUMOR [id number] 15:45:00 Test Item Value Reference Range Interpretation Comments ALPHA-FETOPROTEIN (BEAKER) (test 2.7 ng/mL <10.0 code = 1094) BASIC METABOLIC [id number] 15:36:00 Test Item Value Reference Range Interpretation Comments SODIUM (BEAKER) 134 meq/L 136-145 L (test code = 381) POTASSIUM (BEAKER) 3.5 meq/L 3.5-5.1 (test code = 379) CHLORIDE (BEAKER) 102 meq/L 98-107 (test code = 382) CO2 (BEAKER) (test 28 meq/L 22-29 code = 355) BLOOD UREA NITROGEN 5 mg/dL 7-21 L (BEAKER) (test code = 354) CREATININE (BEAKER) 0.81 mg/dL 0.57-1.25 (test code = 358) GLUCOSE RANDOM 284 mg/dL 70-105 H (BEAKER) (test code = 652) CALCIUM (BEAKER) 7.6 mg/dL 8.4-10.2 L (test code = 697) EGFR (BEAKER) (test 97 mL/min/1.73 ESTIMA TETE GFR IS code = 1092) sq m NOT ACCURATE CREATININE CLEARANCE IN PREDICTING GLOMERULAR FILTRATION RATE . ESTIMATED GFR I S NOT APPLICABLE FOR DIALYSIS PATIEN TS. Specimen slightly ictericHepatic function [id number] 15:35:00 Test Item Value Reference Range Interpretation Comments Protein, Total (test code 7.0 6.0- 8.3 gm/dL = 2885-2) Albumin (test code = 2.5 g/dL 3.5-5 L 80215-2) Total Bilirubin (test code 2.8 mg/dL 0.2-1.2 H = 1975-2) Bilirubin, Direct (test 1.4 mg/dL 0.1-0.5 H code = 1968-7) Alkaline Phosphatase (test 258 U/L 40-150 H code = 6768-6) AST (test code = 1920-8) 36 U/L 5-34 H ALT (test code = 1742-6) 21 U/L 6-55 MADALYN (test code = MADALYN) Specimen slightly icteric Lab Interpretation (test Abnormal code = 05614-0) [facility] CenterHEPATIC FUNCTION [id number] 15:35:00 Test Item Value Reference Range Interpretation Comments TOTAL PROTEIN (BEAKER) (test code = 7.0 gm/dL 6.0-8.3 770) ALBUMIN (BEAKER) (test code = 1145) 2.5 g/dL 3.5-5.0 L BILIRUBIN TOTAL (BEAKER) (test code 2.8 mg/dL 0.2-1.2 H = 377) BILIRUBIN DIRECT (BEAKER) (test 1.4 mg/dL 0.1-0.5 H code = 706) ALKALINE PHOSPHATASE (BEAKER) (test 258 U/L 40-150 H code = 346) AST (SGOT) (BEAKER) (test code = 36 U/L 5-34 H 353) ALT (SGPT) (BEAKER) (test code = 21 U/L 6-55 347) Specimen slightly ictericPROTHROMBIN TIME/[id number] 15:00:00 Test Item Value Reference Range Interpretation Comments PROTIME (BEAKER) (test code = 18.4 seconds 11.9-14.2 H 759) INR (BEAKER) (test code = 370) 1.6 <=5.9 Effective 10/24/2018: PT Reference Range ChangeNew: 11.9-14.2 Previous: 11.7- 14.7RECOMMENDED COUMADIN/WARFARIN INR THERAPY RANGESSTANDARD DOSE: 2.0-3.0 Includes: PROPHYLAXIS for venous thrombosis, systemic embolization; TREATMENT for venous thrombosis and/or pulmonary embolus.HIGH RISK: Target INR is2.5-3.5 for patients wiht mechanical heart valves.CBC W/PLT COUNT & AUTO [id number] 14:53:00 Test Item Value Reference Range Interpretation Comments WHITE BLOOD CELL COUNT (BEAKER) 6.0 K/ L 3.5-10.5 (test code = 775) RED BLOOD CELL COUNT (BEAKER) 3.41 M/ L 4.63-6.08 L (test code = 761) HEMOGLOBIN (BEAKER) (test code = 9.6 GM/DL 13.7-17.5 L 410) HEMATOCRIT (BEAKER) (test code = 31.0 % 40.1-51.0 L 411) MEAN CORPUSCULAR VOLUME (BEAKER) 90.9 fL 79.0-92.2 (test code = 753) MEAN CORPUSCULAR HEMOGLOBIN 28.2 pg 25.7-32.2 (BEAKER) (test code = 751) MEAN CORPUSCULAR HEMOGLOBIN CONC 31.0 GM/DL 32.3-36.5 L (BEAKER) (test code = 752) RED CELL DISTRIBUTION WIDTH 15.4 % 11.6-14.4 H (BEAKER) (test code = 412) PLATELET COUNT (BEAKER) (test code 80 K/CU MM 150-450 L = 756) MEAN PLATELET VOLUME (BEAKER) 11.0 fL 9.4-12.4 (test code = 754) NUCLEATED RED BLOOD CELLS (BEAKER) 0 /100 WBC 0-0 (test code = 413) NEUTROPHILS RELATIVE PERCENT 50 % (BEAKER) (test code = 429) LYMPHOCYTES RELATIVE PERCENT 34 % (BEAKER) (test code = 430) MONOCYTES RELATIVE PERCENT 12 % (BEAKER) (test code = 431) EOSINOPHILS RELATIVE PERCENT 3 % (BEAKER) (test code = 432) BASOPHILS RELATIVE PERCENT 1 % (BEAKER) (test code = 437) NEUTROPHILS ABSOLUTE COUNT 3.02 K/ L 1.78-5.38 (BEAKER) (test code = 670) LYMPHOCYTES ABSOLUTE COUNT 2.06 K/ L 1.32-3.57 (BEAKER) (test code = 414) MONOCYTES ABSOLUTE COUNT (BEAKER) 0.71 K/ L 0.30-0.82 (test code = 415) EOSINOPHILS ABSOLUTE COUNT 0.16 K/ L 0.04-0.54 (BEAKER) (test code = 416) BASOPHILS ABSOLUTE COUNT (BEAKER) 0.04 K/ L 0.01-0.08 (test code = 417) IMMATURE GRANULOCYTES-RELATIVE 1 % 0-1 PERCENT (BEAKER) (test code = 2801) ALPHA FETOPROTEIN (AFP), TUMOR [id number] 14:10:00 Test Item Value Reference Range Interpretation Comments ALPHA-FETOPROTEIN (BEAKER) (test 2.7 ng/mL <10.0 code = 1094) BASIC METABOLIC [id number] 13:52:00 Test Item Value Reference Range Interpretation Comments SODIUM (BEAKER) 134 meq/L 136-145 L (test code = 381) POTASSIUM (BEAKER) 3.6 meq/L 3.5-5.1 (test code = 379) CHLORIDE (BEAKER) 102 meq/L 98-107 (test code = 382) CO2 (BEAKER) (test 25 meq/L 22-29 code = 355) BLOOD UREA NITROGEN 7 mg/dL 7-21 (BEAKER) (test code = 354) CREATININE (BEAKER) 0.78 mg/dL 0.57-1.25 (test code = 358) GLUCOSE RANDOM 167 mg/dL 70-105 H (BEAKER) (test code = 652) CALCIUM (BEAKER) 8.5 mg/dL 8.4-10.2 (test code = 697) EGFR (BEAKER) (test 101 mL/min/1.73 ESTIM ATED GFR IS code = 1092) sq m NOT ACCURATE CREATININE CLEARANCE IN PREDICTING GLOMERULAR FILTRATION RATE . ESTIMATED GFR I S NOT APPLICABLE FOR DIALYSIS PATIEN TS. Specimen slightly ictericHEPATIC FUNCTION [id number] 13:52:00 Test Item Value Reference Range Interpretation Comments TOTAL PROTEIN (BEAKER) (test code = 6.8 gm/dL 6.0-8.3 770) ALBUMIN (BEAKER) (test code = 1145) 2.5 g/dL 3.5-5.0 L BILIRUBIN TOTAL (BEAKER) (test code 3.1 mg/dL 0.2-1.2 H = 377) BILIRUBIN DIRECT (BEAKER) (test 1.4 mg/dL 0.1-0.5 H code = 706) ALKALINE PHOSPHATASE (BEAKER) (test 207 U/L 40-150 H code = 346) AST (SGOT) (BEAKER) (test code = 44 U/L 5-34 H 353) ALT (SGPT) (BEAKER) (test code = 24 U/L 6-55 347) Specimen slightly ictericPROTHROMBIN [id number] 13:49:00 Test Item Value Reference Range Interpretation Comments PROTIME (BEAKER) (test code = 16.9 seconds 11.9-14.2 H 759) INR (BEAKER) (test code = 370) 1.5 <=5.9 Effective 10/24/2018: PT Reference Range ChangeNew: 11.9-14.2 Previous: 11.7- 14.7RECOMMENDED COUMADIN/WARFARIN INR THERAPY RANGESSTANDARD DOSE: 2.0-3.0 Includes: PROPHYLAXIS for venous thrombosis, systemic embolization; TREATMENT for venous thrombosis and/or pulmonary embolus.HIGH RISK: Target INR is2.5-3.5 for patients wiht mechanical heart valves.CBC W/PLT COUNT & AUTO [id number] 13:35:00 Test Item Value Reference Range Interpretation Comments WHITE BLOOD CELL COUNT (BEAKER) 6.6 K/ L 3.5-10.5 (test code = 775) RED BLOOD CELL COUNT (BEAKER) 3.46 M/ L 4.63-6.08 L (test code = 761) HEMOGLOBIN (BEAKER) (test code = 10.7 GM/DL 13.7-17.5 L 410) HEMATOCRIT (BEAKER) (test code = 32.3 % 40.1-51.0 L 411) MEAN CORPUSCULAR VOLUME (BEAKER) 93.4 fL 79.0-92.2 H (test code = 753) MEAN CORPUSCULAR HEMOGLOBIN 30.9 pg 25.7-32.2 (BEAKER) (test code = 751) MEAN CORPUSCULAR HEMOGLOBIN CONC 33.1 GM/DL 32.3-36.5 (BEAKER) (test code = 752) RED CELL DISTRIBUTION WIDTH 14.4 % 11.6-14.4 (BEAKER) (test code = 412) PLATELET COUNT (BEAKER) (test code 60 K/CU MM 150-450 L = 756) MEAN PLATELET VOLUME (BEAKER) 10.8 fL 9.4-12.4 (test code = 754) NUCLEATED RED BLOOD CELLS (BEAKER) 0 /100 WBC 0-0 (test code = 413) NEUTROPHILS RELATIVE PERCENT 56 % (BEAKER) (test code = 429) LYMPHOCYTES RELATIVE PERCENT 31 % (BEAKER) (test code = 430) MONOCYTES RELATIVE PERCENT 10 % (BEAKER) (test code = 431) EOSINOPHILS RELATIVE PERCENT 3 % (BEAKER) (test code = 432) BASOPHILS RELATIVE PERCENT 1 % (BEAKER) (test code = 437) NEUTROPHILS ABSOLUTE COUNT 3.66 K/ L 1.78-5.38 (BEAKER) (test code = 670) LYMPHOCYTES ABSOLUTE COUNT 2.06 K/ L 1.32-3.57 (BEAKER) (test code = 414) MONOCYTES ABSOLUTE COUNT (BEAKER) 0.63 K/ L 0.30-0.82 (test code = 415) EOSINOPHILS ABSOLUTE COUNT 0.18 K/ L 0.04-0.54 (BEAKER) (test code = 416) BASOPHILS ABSOLUTE COUNT (BEAKER) 0.04 K/ L 0.01-0.08 (test code = 417) IMMATURE GRANULOCYTES-RELATIVE 0 % 0-1 PERCENT (BEAKER) (test code = 2801) [id number] 16:45:00 Test Item Value Reference Interpretation Comments Range Zinc (test code = 38 60- 130 mcg/dL L This te st was 2822394) developed and i ts analytical performance characteristics have been determined by [facility]. It ocampo s not been cleared or approved by the USFood and Drug Administration. This assay has been validated pursu ant to the CLIA regula tions and is used for clinical purpos es. MADALYN (test code = Performing Lab MADALYN) *[facility] [employer] [facility], [address] [place] [phone] Heather Real MD, PhD Lab Interpretation Abnormal (test code = 48079-7) [facility] CenterTestosterone, free + [id number] 15:27:00 Test Item Value Reference Interpretation Comments Range Testosterone (test 143 ng/dL 250-1100 L Men wit h clinically code = 5668845) significant hypogonadal symptoms and testosterone va lues repeatedly in t he range of the 200-300 ng/dL or less, may benef it from testosterone tr eatment after adequate risk and benefits counse ling. Testosterone, Free 12.1 pg/mL 35-155 L Data from J Clin (test code = Invest 1974:53: 819-250 0650617) and J Clin Endo crinol Metab 1973;36:1 132-1142. Men with clinic ally significant hyp ogonadal symptoms and testosterone va lues repeatedly in t he range of the 200-300 ng/dL or less, may benef it from testosteronetre atment after adequate risk and benefits maxwell rivera. For additional information, pl ease refer to http://educatio nOmnyPay.ClipMine/f aq/MQQ863 (This link is nicola velez provided for informational/ educational pur poses only.) This te st was developed and i ts analytical perf ormance characteristics have been determined by [facility]. It ocampo s not been cleared or approved by the USFood a nd Drug Administration. This assay has been validated pursuant to the CLIA regulations and is used for clinical pu rposes. MADALYN (test code = Performing Lab MADALYN) *[facility] [employer] [facility], [address] [place] [phone] Heather Real MD, PhD Lab Interpretation Abnormal (test code = 74311-6) [facility] CenterCeruloplasmin2019-07-31 15:13:00 Test Item Value Reference Range Interpretation Comments Ceruloplasmin (test 26 mg/dL 18-36 Adults: code = 1504072) Males: 1 8-36 mg/dL Females: 18-53 mg/dL Pediatrics: Males (mg/dL) Females (mg/dL)-------- - -- 0-30 Days 8-25 3-28 31 Days-11 Month 15-48 15-43 1-3 Years 25-56 29-54 4-6 Year s 29-5 6 26-5 4 7-9 Years 25-52 23-48 10-12 Years 21-51 21-48 13-1 5 Years 20-50 21-46 16-18 Years 20-45 22-50 The pediatric range s are derived fro eufemia the following criteria: Amalia VALDES, Chapis WICK, Elba Romero et al Pediatric reference range s for Wdah-4-Cgilevmu b ulin and ceruloplasmin. Clin. Chem 1997 ; 43:S1999 Pediatric Reference Ranges, 2nd., S F Amaliaet al. editors. [employer], [place], [place] 1997. MADALYN (test code = Performing Lab MADALYN) *[facility], [address] [place] [address] Heather Real MD, PhD [facility]-1 antitrypsin Mutation [id number] 04:15:00 Test Item Value Reference Interpretation Comments Range A1 Antitrypsin SEE BELOW RESULT: NO MU TATION Mut (test code = DETECTED In terpretation: 2033285) DNA testing ind icates that this indiv idual is negative forthe PI*Z and PI*S alleles in the tvxko-2-svsoayp psin (PI) gene (genotypePI*M/P I*M). This negative r esult does not rule o ut the presence of othermutations within the PI gene or other causes of fandu-7-whrfjsh psindefic iency. Therefor e, these results should be interpreted in the context ofthe individual's cl inical presentation, a nd other laboratory test s such asmeasurement o f serum jcyjt-9-xlucvmp psin levels. Labora tory testing supervi sed and results monitor ed by Divya Amaya, Ph.D.,FACMG, HC LD, CGMBS. Cajlk-1-ywnaxyl psin deficiency is a relativelycommo n autosomal reces sive condition. The twomost common deficien cy alleles in kavzbhwn-0-fbjy trypsin gene (protease inhibitorlocus, PI) are designated PI*Z and PI*S, and theno rmal allele is desig nated PI*M. The PI*Z/PI*Z,PI*S/ PI*Z, and PI*S/PI*S genot ypes associatedwith decreased serum PI levels that areequivalent t o approximately 1 0-20%, 35-40%, and50-6 0% of normal, respect ively. The PI*Z/PI*Z andPI*S/PI*Z ge notypes are reported to beassociated wi th an increased risk of liverdisease in childhood, and chronic obstructivepulm onary disease (COPD) and emphysema in ad ultlife. The PI*M/PI*Z, and PI*M/PI*S genot ypesare also associated with decreased serum PIlevels but these level s, and the PI levelsas sociated with the PI*S/P I*S genotype, areap parently adequate to pro tect the lungs inthe vas t majority of ind ividuals. Individualswith the PI*M/PI*Z genot ype may have decreasedp ulmonary function, and m ay be at increasedrisk f or COPD, especially if t hey smoke. It shoul d be noted that seru m jcnlf-5-jywpvmg psinlevel s can be induce d by a wide variety ofconditions th at include pregnan cy, infection,numer ous inflammatory co nditions, cancer, andlive r disease. Levels of kgije-9-exslrqe psinmay be reduced by o ther conditions. Therefore,immun ological and functional determinations ofserum uozct-7-jtwbivi psin levels may notc orrelate with the indivi dual's PI genotype. The P I*Z, PI*S, and PI*M alleles are detectedby multiplex polymerase yuki n reaction (PCR)amplificat ion of specific region s of the PIgene, followe d by restriction enz yme digestionand ca pillary electrophoresis . This assay doesnot t est for the presence of other mutationswithin the ickig-7-tjgoulk psin gene ornon-genetic c auses of rqswg-6-gnizvhb psindefic iency. Since ge netic variation and otherfactors ca n affect the accuracy of directmutation testing, these results s hould beinterpreted i n light of clinical and familialdata. T his test was developed a nd its analytical perf ormance characteristics havebeen determined by [facility] J u[place].It h as not been cleared or approved by FDA. This as say has been validatedp ursuant to the CLIA reg ulations and is used for clinical purposes. Clinical NOT GIVEN Indication (test code = 6564705) Referring NOT GIVEN Physician (test code = 1797974) MADALYN (test code = Performing Lab MADALYN) [facility] [address] [place] [address] Harlan Salazar MD, PhD, SANDRA [facility] CenterT Spot [id number] 11:30:00 Test Item Value Reference Range Interpretation Comments T-Spot TB (test code = 77509-4) Negative Neg Ctrl Spot Count (test code = 0 65933-3) Panel A Spot (test code = 60356-4) 2 Panel B Spot (test code = 52833-8) [address] (test code = 0 43236-6) Scan Result (test code = 9419492) [facility] [id number] 14:59:00 Test Item Value Reference Range Interpretation Comments T4, Total (test code = 3026-2) 5.7 ug/dL 4.9-11.7 Lab Interpretation (test code = Normal 30159-8) [facility] [id number] 14:59:00 Test Item Value Reference Range Interpretation Comments T4 TOTAL (BEAKER) (test code = 895) 5.7 ug/dL 4.9-11.7 Varicella zoster antibody, [id number] 14:35:00 Test Item Value Reference Range Interpretation Comments VZV Ab IgM, 0.49 Reference range : < or = EIA (test 0.90 Interpreti ve code = criteria: 8184304) 0.00-0.90 Negat nishant 0.91-1.0 9 Equivocal > or = 1.10 Posit nishant Results from an y one IgM assay should no t be used as a soledeterm inant of a current or re cent infection. Ofelia use anIgM test can yield false positive result s and low levels ofIgM an tibody may persist for more than 12 months postinfection, reliance on a single connie t result could bemislead ing. If an acute infect ion is suspected, considerobtaini ng a new specimen and roberts bmit for both IgG and Ig Mtesting in two or more weeks. MADALYN (test Performing Lab code = MADALYN) *[facility] [employer] [facility] [address] [place] [id number] Carmine Cooley MD [facility]-9 (CA 19-9)2018-12-21 15:34:00 Test Item Value Reference Interpretation Comments Range CA 19-9 (test code 34 U/mL <34 H This connie t was = 17560-7) performed using the Siemens Chemiluminescen t method.Values obtained from different assay methods cannot be used interchangeably .CA19- 9 levels, regar dless of value, shoul d not be interpreted as absoluteevidenc e of the presence or absence of dise ase. MADALYN (test code = Performing Lab MADALYN) [facility] [address] [place] [address] Harlan Salazar MD, PhD, SANDRA Lab Interpretation Abnormal (test code = 43425-0) [id number] 13:20:00 Test Item Value Reference Range Interpretation Comments T3, Total (test code = 3053-6) 113 ng/dL 48-159 Lab Interpretation (test code = Normal 33121-0) [id number] 13:20:00 Test Item Value Reference Range Interpretation Comments T3 TOTAL (BEAKER) (test code = 656) 113 ng/dL 48-159 Cytomegalovirus antibody, [id number] 11:11:00 Test Item Value Reference Range Interpretation Comments CYTOMEGALOVIRUS, IGG Positive Negative, A (test code = 3429) Equivocal MADALYN (test code = MADALYN) CMV IgG Result Interpretation: </= 0.8 Al Negative 0.9-1.0 Al Equivocal >/=1.1 Al Positive Lab Interpretation (test Abnormal code = 57690-3) [facility] CenterCyt[facility]gal[facility] antibody, [id number] 11:11:00 Test Item Value Reference Range Interpretation Comments CMV IGM (test code = Negative Negative, 3437) Equivocal MADALYN (test code = MADALYN) CMV IgM Result Interpretation: </= 0.8 Al Negative 0.9-1.0 Al Equivocal >/= 1.1 Al Positive Lab Interpretation (test Normal code = 88464-6) [facility] CenterCYTOMEGALOVIRUS ANTIBODY, [id number] 11:11:00 Test Item Value Reference Range Interpretation Comments CYTOMEGALOVIRUS, IGG (BEAKER) Positive Negative, Equivocal A (test code = 3429) CMV IgG Result Interpretation: </= 0.8 Al Negative 0.9-1.0 Al Equivocal >/=1.1 Al PositiveCYTOMEGALOVIRUS ANTIBODY, [id number] 11:11:00 Test Item Value Reference Range Interpretation Comments CYTOMEGALOVIRUS IGM ANTIBODY Negative Negative, Equivocal (BEAKER) (test code = 3437) CMV IgM Result Interpretation: </= 0.8 Al Negative 0.9-1.0 Al Equivocal >/= 1.1 Al PositiveVaricella zoster antibody, [id number] 11:08:00 Test Item Value Reference Range Interpretation Comments Varicella IgG (test >8.0 code = 59944-9) MADALYN (test code = MADALYN) VARICELLA ZOSTER RESULT INTERPRETATIONS: <=0.8 Al Nonreactive: Presumed non-immune to VZV 0.9-1.0 Al Equivocal >=1.1 Al Reactive: Presumed immune to VZV [facility] CenterEBV[facility]VCA antibody, [id number] 11:08:00 Test Item Value Reference Range Interpretation Comments EDENILSON FLORES VIRAL Positive Negative, A CAPSID ANTIGEN IGG (test Equivocal code = 3415) MADALYN (test code = MADALYN) Edenilson Flores Viral Capsid Antigen IgG Result Interpretation: </= 0.8 Al Negative 0.9-1.0 Al Equivocal >/= 1.1 Al Positive Lab Interpretation (test Abnormal code = 25228-9) [facility] CenterE[facility]VCA antibody, [id number] 11:08:00 Test Item Value Reference Range Interpretation Comments EDENILSON FLORES VIRAL Negative Negative, CAPSID ANTIGEN IGM (test Equivocal code = 3418) MADALYN (test code = MADALYN) Edenilson Flores Viral Capsid Antigen IgM Result Interpretation: </= 0.8 Al Negative 0.9-1.0 Al Equivocal >/= 1.1 Al Positive Lab Interpretation (test Normal code = 35029-6) [facility] CenterEBV ANTIBODY, [id number] 11:08:00 Test Item Value Reference Range Interpretation Comments EDENILSON FLORES VIRAL CAPSID Positive Negative, Equivocal A ANTIGEN IGG (BEAKER) (test code = 3415) Edenilson Flores Viral Capsid Antigen IgG Result Interpretation: </= 0.8 Al Negative 0.9-1.0 Al Equivocal >/= 1.1 Al PositiveEBV ANTIBODY, IGM 2018-12-21 11:08:00 Test Item Value Reference Range Interpretation Comments EDENILSON FLORES VIRAL CAPSID Negative Negative, Equivocal ANTIGEN IGM (BEAKER) (test code = 3418) Edenilson Flores Viral Capsid Antigen IgM Result Interpretation: </= 0.8 Al Negative 0.9-1.0 Al Equivocal >/= 1.1 Al PositiveVARICELLA ZOSTER ANTIBODY, [id number] 11:08:00 Test Item Value Reference Range Interpretation Comments VARICELLA ZOSTER IGG (AL) (BEAKER) > (test code = 3197) VARICELLA ZOSTER RESULT INTERPRETATIONS: <=0.8 Al Nonreactive: Presumed non-immune to VZV 0.9-1.0 Al Equivocal >=1.1 Al Reactive: Presumed immune to VNCWrade-3-[id number] 13:11:00 Test Item Value Reference Range Interpretation Comments A-1 Antitrypsin (test code = 155.30 mg/dL 90-200 1825-9) Lab Interpretation (test code = Normal 44697-4) [facility] CenterALPHA-1-[id number] 13:11:00 Test Item Value Reference Range Interpretation Comments ALPHA-1 ANTITRYPSIN (BEAKER) 155.30 mg/dL 90.00-200.00 (test code = 502) Hemoglobin [id number] 13:08:00 Test Item Value Reference Range Interpretation Comments Hemoglobin A1C (test code = 4548-4) 6.4 % 4.3-6.1 H Lab Interpretation (test code = Abnormal 40188-2) [facility] CenterHEMOGLOBIN [id number] 13:08:00 Test Item Value Reference Range Interpretation Comments HEMOGLOBIN A1C (BEAKER) (test code = 6.4 % 4.3-6.1 H 368) Hepatitis C [id number] 12:51:00 Test Item Value Reference Range Interpretation Comments Hepatitis C Ab (test code = 20670-2) Reactive Nonreactive A Lab Interpretation (test code = Abnormal 60020-4) [facility] CenterHepatitis A antibody, IgG ([facility] ONLY)2018-12-20 12:51:00 Test Item Value Reference Range Interpretation Comments Hep A IgG (test code = 09107-1) Reactive Nonreactive A Lab Interpretation (test code = Abnormal 01516-9) [facility] CenterHEPATITIS A ANTIBODY, [id number] 12:51:00 Test Item Value Reference Range Interpretation Comments HEPATITIS A IGG ANTIBODY (BEAKER) Reactive Nonreactive A (test code = 2797) HEPATITIS C [id number] 12:51:00 Test Item Value Reference Range Interpretation Comments HEPATITIS C ANTIBODY (BEAKER) (test Reactive Nonreactive A code = 367) [id number] 12:48:00 Test Item Value Reference Range Interpretation Comments PSA (test code = 2857-1) 0.4 ng/mL 0-4 Lab Interpretation (test code = Normal 96054-3) [facility] CenterHIV-1 Antigen with HIV-1/2 [id number] 12:48:00 Test Item Value Reference Range Interpretation Comments HIV-1 Antigen with HIV 1&2 Nonreactive Nonreactive Antibody (test code = 38706-9) Lab Interpretation (test code = Normal 17693-6) [facility] CenterPSA2019-07-[facility] 12:48:00 Test Item Value Reference Range Interpretation Comments PROSTATE SPECIFIC ANTIGEN (BEAKER) 0.4 ng/mL 0.0-4.0 (test code = 844) HIV-1 ANTIGEN WITH HIV-1/2 [id number] 12:48:00 Test Item Value Reference Range Interpretation Comments HIV-1 ANTIGEN WITH HIV 1\T\2 Nonreactive Nonreactive ANTIBODY (2) (BEAKER) (test code = 2586) Vitamin D, 26-[id number] 12:46:00 Test Item Value Reference Range Interpretation Comments Vitamin D 25-Hydroxy 7.7 ng/mL 6.6-49.9 (test code = 2764) MADALYN (test code = MADALYN) Effective 03/08/2017: Reference Range ChangeNew: 6.6-49.9 ng/mL Previous: 13.0-47.8 ng/mL Recommended Vitamin D Target Range: 30.0-40.0 ng/mL Lab Interpretation (test Normal code = 43985-8) [facility] CenterVITAMIN D, 82-[id number] 12:46:00 Test Item Value Reference Range Interpretation Comments VITAMIN D 25-OH (BEAKER) (test code 7.7 ng/mL 6.6-49.9 = 2764) Effective 03/08/2017: Reference Range ChangeNew: 6.6-49.9 ng/mL Previous: 13.0-47.8 ng/mLRecommended Vitamin D Target Range: 30.0-40.0 ng/mLUrinalysis w/Ljhohvbmsbx3850-20-09 11:55:00 Test Item Value Reference Range Interpretation Comments Color, UA (test code = 5778-6) Dark Yellow Clarity, UA (test code = 5767-9) Clear Specific [place], UA (test code = 1.015 1.001-1.035 5811-5) pH, UA (test code = 5803-2) 6.5 5.0-8.0 Protein, UA (test code = 47632-0) 20 mg/dL Negative A Glucose, UA (test code = 365) Negative Negative Ketones, UA (test code = 2514-8) Negative Negative Bilirubin, UA (test code = Positive Negative A 90067-3) Blood, UA (test code = 18829-9) Negative Negative Nitrite, UA (test code = 5802-4) Negative Negative Leukocytes, UA (test code = Negative Negative 5799-2) Urobilinogen, UA (test code = 8.0 mg/dL 0.2-1 H 75991-9) RBC, UA (test code = 22681-0) <1 /HPF WBC, UA (test code = 5821-4) 1 /HPF Mucus (test code = 8247-9) Rare Squam Epithel, UA (test code = 2 /HPF 64127-1) Casts (test code = 9842-6) 2 /LPF Specimen Source (test code = 2795) Lab Interpretation (test code = Abnormal 74509-4) [facility] CenterURINALYSIS W/ [id number] 11:55:00 Test Item Value Reference Range Interpretation Comments COLOR (BEAKER) (test code = 470) Dark Yellow CLARITY (BEAKER) (test code = Clear 469) SPECIFIC GRAVITY UA (BEAKER) 1.015 1.001-1.035 (test code = 468) PH UA (BEAKER) (test code = 467) 6.5 5.0-8.0 PROTEIN UA (BEAKER) (test code = 20 mg/dL Negative A 464) GLUCOSE UA (BEAKER) (test code = Negative Negative 365) KETONES UA (BEAKER) (test code = Negative Negative 371) BILIRUBIN UA (BEAKER) (test code Positive Negative A = 462) BLOOD UA (BEAKER) (test code = Negative Negative 461) NITRITE UA (BEAKER) (test code = Negative Negative 465) LEUKOCYTE ESTERASE UA (BEAKER) Negative Negative (test code = 466) UROBILINOGEN UA (BEAKER) (test 8.0 mg/dL 0.2-1.0 H code = 463) RBC UA (BEAKER) (test code = 519) < /HPF WBC UA (BEAKER) (test code = 520) 1 /HPF MUCUS (BEAKER) (test code = 1574) Rare SQUAMOUS EPITHELIAL (BEAKER) 2 /HPF (test code = 516) CASTS (BEAKER) (test code = 1579) 2 /LPF SOURCE(BEAKER) (test code = 2795) Cryptococcal [id number] 11:10:00 Test Item Value Reference Range Interpretation Comments Cryptococcal Antigen, Serum Negative Negative, Interference (test code = 74168-4) Lab Interpretation (test code Normal = 92555-1) [facility] CenterCRYPTOCOCCAL [id number] 11:10:00 Test Item Value Reference Range Interpretation Comments CRYPTOCOCCAL ANTIGEN, SERUM Negative Negative, Interference (BEAKER) (test code = 1828) Type and screen, [id number] 11:04:00 Test Item Value Reference Range Interpretation Comments ABO/RH AUTOMATED ([facility]) (test O POSITIVE code = 2260) Ab Scrn (test code = 890-4) NEGATIVE [facility] CenterFerritin2019-07-25 10:59:00 Test Item Value Reference Range Interpretation Comments Ferritin (test code = 2276-4) 69 ng/mL 5-275 Lab Interpretation (test code = Normal 76004-7) [facility] CenterTSH2019-07-25 10:59:00 Test Item Value Reference Range Interpretation Comments TSH (test code = 06213-8) 2.10 0.35- 4.94 uIU/mL Lab Interpretation (test code = Normal 28735-2) [facility] CenterTSH2019-07-25 10:59:00 Test Item Value Reference Range Interpretation Comments THYROID STIMULATING HORMONE 2.10 uIU/mL 0.35-4.94 (BEAKER) (test code = 772) [id number] 10:59:00 Test Item Value Reference Range Interpretation Comments FERRITIN (BEAKER) (test code = 361) 69 ng/mL 5-275 [id number] 10:51:00 Test Item Value Reference Range Interpretation Comments RPR (test code = 43663-9) Nonreactive Nonreactive Lab Interpretation (test code = Normal 27415-5) [facility] CenterRPR2019-07-[facility] 10:51:00 Test Item Value Reference Range Interpretation Comments RPR SCREEN (BEAKER) (test code = Nonreactive Nonreactive 420) [id number] 10:49:00 Test Item Value Reference Range Interpretation Comments Transferrin (test code = 197 mg/dL 381-904 5977-6) MADALYN (test code = MADALYN) Specimen slightly icteric Lab Interpretation (test Normal code = 86479-1) [facility] CenterTRANSFERRIN2019-07-25 10:49:00 Test Item Value Reference Range Interpretation Comments TRANSFERRIN (BEAKER) (test code = 197 mg/dL 174-382 541) Specimen slightly ictericLipid [id number] 10:45:00 Test Item Value Reference Range Interpretation Comments Triglycerides (test 89 mg/dL code = 2571-8) Cholesterol (test code 104 mg/dL = 2093-3) HDL (test code = 29 mg/dL 5-9) LDL Calculated (test 57 mg/dL code = 32749-4) MADALYN (test code = MADALYN) Triglyceride Reference Range: Low Risk <150 Borderline 150-199 High Risk 200-499 Very High Risk >=500 Cholesterol Reference Range: Low Risk <200 Borderline 200-239 High Risk >240 HDL Cholesterol Reference Range: Low Risk >=60 High Risk <40 LDL Cholesterol Reference Range: Optimal <100 Near Optimal 100-129 Borderline 130-159 High 160-189 Very High >=190 Specimen slightly icteric [facility] CenterGamma Glutamyl Transferase (GGT)2018-12-20 10:45:00 Test Item Value Reference Range Interpretation Comments GGT (test code = 2324-2) 33 U/L 9-64 MADALYN (test code = MADALYN) Specimen slightly icteric Lab Interpretation (test Normal code = 23762-7) [facility] CenterMagnesium2019-07-25 10:45:00 Test Item Value Reference Range Interpretation Comments Magnesium (test code = 11660-2) 1.5 mg/dL 1.6-2.6 L Lab Interpretation (test code = Abnormal 76548-6) [facility] CenterPhosphorus2019-07-25 10:45:00 Test Item Value Reference Range Interpretation Comments Phosphorus (test code = 2777-1) 3.6 mg/dL 2.3-4.7 Lab Interpretation (test code = Normal 17499-5) [facility] CenterUric [id number] 10:45:00 Test Item Value Reference Range Interpretation Comments Uric Acid (test code = 4.8 mg/dL 2.6-7.2 3084-1) MADALYN (test code = MADALYN) Specimen slightly icteric Lab Interpretation (test Normal code = 86564-6) [facility] CenterMAGNESIUM2019-07-25 10:45:00 Test Item Value Reference Range Interpretation Comments MAGNESIUM (BEAKER) (test code = 1.5 mg/dL 1.6-2.6 L 627) [id number] 10:45:00 Test Item Value Reference Range Interpretation Comments PHOSPHORUS (BEAKER) (test code = 3.6 mg/dL 2.3-4.7 604) URIC [id number] 10:45:00 Test Item Value Reference Range Interpretation Comments URIC ACID (BEAKER) (test code = 4.8 mg/dL 2.6-7.2 773) Specimen slightly ictericCOMPREHENSIVE METABOLIC [id number] 10:45:00 Test Item Value Reference Range Interpretation Comments TOTAL PROTEIN 6.7 gm/dL 6.0-8.3 (BEAKER) (test code = 770) ALBUMIN (BEAKER) 2.6 g/dL 3.5-5.0 L (test code = 1145) ALKALINE PHOSPHATASE 194 U/L 40-150 H (BEAKER) (test code = 346) BILIRUBIN TOTAL 3.6 mg/dL 0.2-1.2 H (BEAKER) (test code = 377) SODIUM (BEAKER) (test 136 meq/L 136-145 code = 381) POTASSIUM (BEAKER) 3.4 meq/L 3.5-5.1 L (test code = 379) CHLORIDE (BEAKER) 102 meq/L 98-107 (test code = 382) CO2 (BEAKER) (test 29 meq/L 22-29 code = 355) BLOOD UREA NITROGEN 6 mg/dL 7-21 L (BEAKER) (test code = 354) CREATININE (BEAKER) 0.66 mg/dL 0.57-1.25 (test code = 358) GLUCOSE RANDOM 128 mg/dL 70-105 H (BEAKER) (test code = 652) CALCIUM (BEAKER) 8.2 mg/dL 8.4-10.2 L (test code = 697) AST (SGOT) (BEAKER) 40 U/L 5-34 H (test code = 353) ALT (SGPT) (BEAKER) 24 U/L 6-55 (test code = 347) EGFR (BEAKER) (test 122 ESTIMATE D GFR IS code = 1092) mL/min/1.73 sq NOT ACCURA TE m CREATININE CLEARANCE IN PREDICTING GLOMERULAR FILTRATION RATE . ESTIMATED GFR I S NOT APPLICABLE FOR DIALYSIS PATIEN TS. Specimen slightly ictericLIPID [id number] 10:45:00 Test Item Value Reference Range Interpretation Comments TRIGLYCERIDES (BEAKER) (test code = 89 mg/dL 540) CHOLESTEROL (BEAKER) (test code = 104 mg/dL 631) HDL CHOLESTEROL (BEAKER) (test code 29 mg/dL = 976) LDL CHOLESTEROL CALCULATED (BEAKER) 57 mg/dL (test code = 633) Triglyceride Reference Range: Low Risk <150 Borderline 150-199 High Risk 200-499 Very High Risk >=500Cholesterol Reference Range: Low Risk <200 Borderline 200-239 High Risk >240HDL Cholesterol Reference Range: Low Risk >=60 High Risk <40LDL Cholesterol Reference Range: Optimal <100 Near Optimal 100-129 Borderline 130-159 High 160-189 Very High >=190 Specimen slightly ictericBILIRUBIN, [id number] 10:45:00 Test Item Value Reference Range Interpretation Comments BILIRUBIN DIRECT (BEAKER) (test 1.6 mg/dL 0.1-0.5 H code = 706) GAMMA GLUTAMYL TRANSFERASE (GGT)2018-12-20 10:45:00 Test Item Value Reference Range Interpretation Comments GAMMA GLUTAMYL TRANSFERASE (BEAKER) 33 U/L 9-64 (test code = 364) Specimen slightly [id number] 10:42:00 Test Item Value Reference Range Interpretation Comments PTT (test code = 57239-1) 37.9 22.5- 36.0 seconds H Lab Interpretation (test code = Abnormal 95295-5) [facility] CenterAPTT2019-07-[facility] 10:42:00 Test Item Value Reference Range Interpretation Comments PARTIAL THROMBOPLASTIN TIME 37.9 seconds 22.5-36.0 H (BEAKER) (test code = 760) Blood typing, [id number] 10:39:00 Test Item Value Reference Range Interpretation Comments ABO/RH AUTOMATED (BEAKER) (test O POSITIVE code = 2260) [facility] CenterEthanol2019-07-25 10:36:00 Test Item Value Reference Range Interpretation Comments Ethanol Lvl (test code = 5643-2) <10 <=10 mg/dL Lab Interpretation (test code = Normal 81942-1) [facility] CenterFibrinogen2019-07-25 10:36:00 Test Item Value Reference Range Interpretation Comments Fibrinogen (test code = 3255-7) 207 mg/dl 225-434 L Lab Interpretation (test code = Abnormal 43936-9) [facility] CenterPROTHROMBIN TIME/[id number] 10:36:00 Test Item Value Reference Range Interpretation Comments PROTIME (BEAKER) (test code = 17.8 seconds 11.9-14.2 H 759) INR (BEAKER) (test code = 370) 1.5 <=5.9 Effective 10/24/2018: PT Reference Range ChangeNew: 11.9-14.2 Previous: 11.7- 14.7RECOMMENDED COUMADIN/WARFARIN INR THERAPY RANGESSTANDARD DOSE: 2.0-3.0 Includes: PROPHYLAXIS for venous thrombosis, systemic embolization; TREATMENT for venous thrombosis and/or pulmonary embolus.HIGH RISK: Target INR is2.5-3.5 for patients wiht mechanical heart valves.[id number] 10:36:00 Test Item Value Reference Range Interpretation Comments ETHANOL (BEAKER) (test code = 400) < mg/dL <=10 [id number] 10:36:00 Test Item Value Reference Range Interpretation Comments FIBRINOGEN LEVEL (BEAKER) (test 207 mg/dl 225-434 L code = 658) Blood gas, [id number] 10:35:00 Test Item Value Reference Range Interpretation Comments pH, Arterial (test code = 2744-1) 7.50 7.35-7.45 H pCO2, Arterial (test code = 37 35- 45 mmHg 2018-) pO2, Arterial (test code = 2703-7) 86 80- 90 mmHg O2 Sat, Arterial (test code = 97.2 % 96-97 H 2707-6) HCO3, Arterial (test code = 28 mmol/L 21-29 1959-) Base Excess, Arterial (test code = 4.9 mmol/L -2-3 H 192-7) Patient Temperature (test code = 37.0 C 8310-5) FIO2 (test code = 1819) 21 % Lab Interpretation (test code = Abnormal 54719-0) [facility] CenterBLOOD GAS, [id number] 10:35:00 Test Item Value Reference Range Interpretation Comments PH ARTERIAL (BEAKER) (test code = 7.50 7.35-7.45 H 383) PCO2 ARTERIAL (BEAKER) (test code 37 mmHg 35-45 = 384) PO2 ARTERIAL (BEAKER) (test code = 86 mmHg 80-90 385) O2 SATURATION ARTERIAL (BEAKER) 97.2 % 96.0-97.0 H (test code = 386) HCO3 ARTERIAL (BEAKER) (test code 28 mmol/L 21-29 = 388) BASE EXCESS ARTERIAL (BEAKER) 4.9 mmol/L -2.0-3.0 H (test code = 387) PATIENT TEMPERATURE (BEAKER) (test 37.0 C code = 1818) FIO2 (BEAKER) (test code = 1819) 21.0 % CBC W/PLT COUNT & AUTO [id number] 10:25:00 Test Item Value Reference Range Interpretation Comments WHITE BLOOD CELL COUNT (BEAKER) 7.7 K/ L 3.5-10.5 (test code = 775) RED BLOOD CELL COUNT (BEAKER) 3.26 M/ L 4.63-6.08 L (test code = 761) HEMOGLOBIN (BEAKER) (test code = 10.5 GM/DL 13.7-17.5 L 410) HEMATOCRIT (BEAKER) (test code = 31.4 % 40.1-51.0 L 411) MEAN CORPUSCULAR VOLUME (BEAKER) 96.3 fL 79.0-92.2 H (test code = 753) MEAN CORPUSCULAR HEMOGLOBIN 32.2 pg 25.7-32.2 (BEAKER) (test code = 751) MEAN CORPUSCULAR HEMOGLOBIN CONC 33.4 GM/DL 32.3-36.5 (BEAKER) (test code = 752) RED CELL DISTRIBUTION WIDTH 13.9 % 11.6-14.4 (BEAKER) (test code = 412) PLATELET COUNT (BEAKER) (test code 59 K/CU MM 150-450 L = 756) MEAN PLATELET VOLUME (BEAKER) 10.7 fL 9.4-12.4 (test code = 754) NUCLEATED RED BLOOD CELLS (BEAKER) 0 /100 WBC 0-0 (test code = 413) NEUTROPHILS RELATIVE PERCENT 56 % (BEAKER) (test code = 429) LYMPHOCYTES RELATIVE PERCENT 29 % (BEAKER) (test code = 430) MONOCYTES RELATIVE PERCENT 10 % (BEAKER) (test code = 431) EOSINOPHILS RELATIVE PERCENT 3 % (BEAKER) (test code = 432) BASOPHILS RELATIVE PERCENT 1 % (BEAKER) (test code = 437) NEUTROPHILS ABSOLUTE COUNT 4.32 K/ L 1.78-5.38 (BEAKER) (test code = 670) LYMPHOCYTES ABSOLUTE COUNT 2.24 K/ L 1.32-3.57 (BEAKER) (test code = 414) MONOCYTES ABSOLUTE COUNT (BEAKER) 0.80 K/ L 0.30-0.82 (test code = 415) EOSINOPHILS ABSOLUTE COUNT 0.23 K/ L 0.04-0.54 (BEAKER) (test code = 416) BASOPHILS ABSOLUTE COUNT (BEAKER) 0.04 K/ L 0.01-0.08 (test code = 417) IMMATURE GRANULOCYTES-RELATIVE 1 % 0-1 PERCENT (BEAKER) (test code = 2801) Calcium, [id number] 10:20:00 Test Item Value Reference Range Interpretation Comments Calcium, Ion (test code = 1993-) 1.05 mmol/L 1.12-1.27 L pH, Blood (test code = 01479-2) 7.41 Lab Interpretation (test code = Abnormal 95047-6) [facility] CenterCALCIUM, [id number] 10:20:00 Test Item Value Reference Range Interpretation Comments CALCIUM IONIZED (BEAKER) (test 1.05 mmol/L 1.12-1.27 L code = 698) PH, BLOOD (BEAKER) (test code = 7.41 1810) RAD, MANDIBLE, MIN 4 [id number] 16:56:00REFERRING MD: CHERELLE SALVADOR Reason for Exam:->pretransplant liver evaluationFINAL REPORT TECHNIQUE: Minimum four views of the mandible. INDICATION: pretransplant liver evaluation. COMPARISON: None. FINDINGS:No fracture or dislocation.No periapical lucencies.Caries of a maxillary molar, side indeterminate.Mild degenerative disc changes at C4-C5, C5-C6, and C6-C7. IMPRESSION: No periapical lucency. Caries of a maxillary molar, side indeterminate. Signed:Tawanda Hernandez Verified Date/Time: 12/19/2018 16:56:31 Reading Location: [address] Radiology Reading Room XR mandible 4 views [id number] 16:56:00Interface, External Ris In - 12/19/2018 4:58 PM CDTFINAL REPORT TECHNIQUE: Minimum four views of the mandible. INDICATION: pretransplant liver evaluation. COMPARISON: None. FINDINGS:No fracture or dislocation.No periapical lucencies.Caries of a maxillary molar, side indeterminate.Mild degenerative disc changes at C4-C5, C5-C6, and C6-C7. IMPRESSION: No periapical lucency. Caries of a maxillary molar, side indeterminate. Signed: Tawanda Hernandez Verified Date/Time: 12/19/2018 16:56:31 Reading Location: [address] Radiology Reading [facility], [facility]ST, 2 [id number] 15:51:00 REFERRING MD: CHERELLE SALVADOR Reason for Exam:->pretransplant liver evaluation FINAL REPORT Chest, PA and lateral. History: Transplant evaluation. Comparison: 10/28/2018. Discussion: The cardiomediastinal silhouette and pulmonary vasculature are within normal limits. The lungs are clear without evidence of consolidation or effusion. There are no acute osseous abnormalities. The soft tissues are unremarkable. IMPRESSION: No acute cardiopulmonary abnormality. Signed: Farzaneh Hathaway Verified Date/Time: 12/19/2018 15:51:17 Reading Location: [facility] Mamm Reading Room XR chest 2 [id number] 15:51:00Interface, External Ris In - 12/19/2018 3:53 PM CDTFINAL REPORT Chest, PA and lateral. History: Transplant evaluation. Comparison: 10/28/2018. Discussion: The cardiomediastinal silhouette and pulmonary vasculature are within normal limits. The lungs are clear without evidence of consolidation or effusion. There are no acute osseous abnormalities. The soft tissues are unremarkable. IMPRESSION: No acute cardiopulmonary abnormality. Signed: Farzaneh Hathaway Verified Da te/Time: 12/19/2018 15:51:17 Reading Location: [facility]amm [facility], [id number] 14:51:00REFERRING MD: CHERELLE LEROYTFLEATHA REPORT TECHNIQUE: MRI of the abdomen WITHOUT [...] granuloma measures 0.7 cm.PANCREAS: No focal masses or ductal dilatation. ADRENALS: No adrenal nodules.KIDNEYS/URETERS: No hydronephrosis or solid mass lesions. A retropulsive a renal cyst measures 1.3 cm. PERITONEUM/RETROPERITONEUM: Small volume ascites. The partially visualized umbilical hernia contains ascites with multiple internal septations.LYMPH NODES: No lymphadenopathy.VESSELS: Large esophageal varices.Three left hepatic artery from the left gastric artery. The left gastric originates directly from the aorta. The main portal vein is patent and measures 1.4 cm in diameter. GI TRACT: No distention or wall thickening. Diverticulum of [...] ascites, splenomegaly, and large esophageal varices. Signed: Tawanda Hernandez MDReport Verified Date/Time: 12/19/2018 14:51:24 Reading Location: [address] Radiology Reading Room MR abdomen with/without IV [id number] 14:51:00Interface, External Ris In - 12/19/2018 2:53 PM CDTFINAL REPORT TECHNIQUE: MRI of the abdomen WITHOUT and WITH intravenous contrast. INDICATION: pretransplant liver evaluation. COMPARISON: None. FINDINGS: LOWER THORAX: Unremarkable. LIVER: Nodular, cirrhotic. A cyst in segmentVII measures 1 cm on series 3 image 23. A rounded area of arterial segment III measures 1.4 cm on series 12 image 39. No washout or pseudocapsule formation. BILIARY: Gallbladder is unremarkable. No biliary ductal dilatation or filling defect.SPLEEN: 16.5 cm splenomegaly. There is likely a calcified granuloma measures 0.7 cm.PANCREAS: No focal masses or ductal dilatation. ADRENALS: No adrenal nodules.KIDNEYS/URETERS: No hydronephrosis or solid mass lesions. A retropulsive a renal cyst measures 1.3 cm. PERITONEUM/RETROPERITONEUM: Small volume ascites. The partially visualized umbilical hernia contains ascites with multiple internal septations.LYMPH NODES: No lymphadenopathy.VESSELS: Large esophagealvarices.Three left hepatic artery from the left gastric artery. The left gastric originates directlyfrom the aorta. The main portal vein is patent and measures 1.4 cm in diameter. GI TRACT: No distention or wall thickening. Diverticulum of [...] ascites, splenomegaly, and large esophageal varices. Signed: Tawanda Hernandez MDReport Verified Date/Time: 12/19/2018 14:51:24 Reading Location: [address] Radiology Reading Room [facility]2019-07-11 11:12:00 Test Item Value Reference Range Interpretation Comments ETHANOL (BEAKER) (test code = 400) < mg/dL <=10 BASIC METABOLIC [id number] 10:56:00 Test Item Value Reference Range Interpretation Comments SODIUM (BEAKER) 135 meq/L 136-145 L (test code = 381) POTASSIUM (BEAKER) 3.8 meq/L 3.5-5.1 (test code = 379) CHLORIDE (BEAKER) 102 meq/L 98-107 (test code = 382) CO2 (BEAKER) (test 28 meq/L 22-29 code = 355) BLOOD UREA NITROGEN 5 mg/dL 7-21 L (BEAKER) (test code = 354) CREATININE (BEAKER) 0.80 mg/dL 0.57-1.25 (test code = 358) GLUCOSE RANDOM 237 mg/dL 70-105 H (BEAKER) (test code = 652) CALCIUM (BEAKER) 8.3 mg/dL 8.4-10.2 L (test code = 697) EGFR (BEAKER) (test 98 mL/min/1.73 ESTIMA TETE GFR IS code = 1092) sq m NOT ACCURATE CREATININE CLEARANCE IN PREDICTING GLOMERULAR FILTRATION RATE . ESTIMATED GFR I S NOT APPLICABLE FOR DIALYSIS PATIEN TS. Specimen moderately ictericHEPATIC FUNCTION [id number] 10:56:00 Test Item Value Reference Range Interpretation Comments TOTAL PROTEIN (BEAKER) (test code = 7.0 gm/dL 6.0-8.3 770) ALBUMIN (BEAKER) (test code = 1145) 2.7 g/dL 3.5-5.0 L BILIRUBIN TOTAL (BEAKER) (test code 3.8 mg/dL 0.2-1.2 H = 377) BILIRUBIN DIRECT (BEAKER) (test 1.3 mg/dL 0.1-0.5 H code = 706) ALKALINE PHOSPHATASE (BEAKER) (test 186 U/L 40-150 H code = 346) AST (SGOT) (BEAKER) (test code = 43 U/L 5-34 H 353) ALT (SGPT) (BEAKER) (test code = 27 U/L 6-55 347) Specimen moderately ictericPROTHROMBIN [id number] 10:40:00 Test Item Value Reference Range Interpretation Comments PROTIME (BEAKER) (test code = 18.4 seconds 11.9-14.2 H 759) INR (BEAKER) (test code = 370) 1.6 <=5.9 Effective 10/24/2018: PT Reference Range ChangeNew: 11.9-14.2 Previous: 11.7- 14.7RECOMMENDED COUMADIN/WARFARIN INR THERAPY RANGESSTANDARD DOSE: 2.0-3.0 Includes: PROPHYLAXIS for venous thrombosis, systemic embolization; TREATMENT for venous thrombosis and/or pulmonary embolus.HIGH RISK: Target INR is2.5-3.5 for patients wiht mechanical heart valves.CBC W/PLT COUNT & AUTO [id number] 10:38:00 Test Item Value Reference Range Interpretation Comments WHITE BLOOD CELL COUNT (BEAKER) 5.1 K/ L 3.5-10.5 (test code = 775) RED BLOOD CELL COUNT (BEAKER) 3.19 M/ L 4.63-6.08 L (test code = 761) HEMOGLOBIN (BEAKER) (test code = 10.5 GM/DL 13.7-17.5 L 410) HEMATOCRIT (BEAKER) (test code = 32.6 % 40.1-51.0 L 411) MEAN CORPUSCULAR VOLUME (BEAKER) 102.2 fL 79.0-92.2 H (test code = 753) MEAN CORPUSCULAR HEMOGLOBIN 32.9 pg 25.7-32.2 H (BEAKER) (test code = 751) MEAN CORPUSCULAR HEMOGLOBIN CONC 32.2 GM/DL 32.3-36.5 L (BEAKER) (test code = 752) RED CELL DISTRIBUTION WIDTH 14.5 % 11.6-14.4 H (BEAKER) (test code = 412) PLATELET COUNT (BEAKER) (test code 59 K/CU MM 150-450 L = 756) MEAN PLATELET VOLUME (BEAKER) 10.9 fL 9.4-12.4 (test code = 754) NUCLEATED RED BLOOD CELLS (BEAKER) 0 /100 WBC 0-0 (test code = 413) NEUTROPHILS RELATIVE PERCENT 44 % (BEAKER) (test code = 429) LYMPHOCYTES RELATIVE PERCENT 39 % (BEAKER) (test code = 430) MONOCYTES RELATIVE PERCENT 11 % (BEAKER) (test code = 431) EOSINOPHILS RELATIVE PERCENT 5 % (BEAKER) (test code = 432) BASOPHILS RELATIVE PERCENT 1 % (BEAKER) (test code = 437) NEUTROPHILS ABSOLUTE COUNT 2.26 K/ L 1.78-5.38 (BEAKER) (test code = 670) LYMPHOCYTES ABSOLUTE COUNT 1.99 K/ L 1.32-3.57 (BEAKER) (test code = 414) MONOCYTES ABSOLUTE COUNT (BEAKER) 0.55 K/ L 0.30-0.82 (test code = 415) EOSINOPHILS ABSOLUTE COUNT 0.24 K/ L 0.04-0.54 (BEAKER) (test code = 416) BASOPHILS ABSOLUTE COUNT (BEAKER) 0.05 K/ L 0.01-0.08 (test code = 417) IMMATURE GRANULOCYTES-RELATIVE 0 % 0-1 PERCENT (BEAKER) (test code = 2801) BLOOD [id number] 08:00:00 Test Item Value Reference Range Interpretation Comments CULTURE (BEAKER) (test No growth in 5 days code = 1095) BLOOD [id number] 08:00:00 Test Item Value Reference Range Interpretation Comments CULTURE (BEAKER) (test No growth in 5 days code = 1095) BODY FLUID CULTURE + GRAM [id number] 12:20:00 Test Item Value Reference Range Interpretation Comments CULTURE (BEAKER) (test code No growth = 1095) GRAM STAIN RESULT (BEAKER) 1+ WBCs (test code = 1123) GRAM STAIN RESULT (BEAKER) No organisms seen (test code = 69869) HEPATITIS C PCR, [id number] 08:32:00 Test Item Value Reference Range Interpretation Comments HCV RESULT COMPONENT HCV RNA not detected HCV RNA not detected (BEAKER) (test code = 2699) This test uses a Real-Time Polymerase Chain Reaction (RT-PCR) methodology and was performed using [employer] Ampliprep/KHOA TaqMan HCV test kit version 2.0 ([employer]).Reportable range for this assay is 15 - 100,000,000 IU per mL (1.18 - 8.00 Log IU/mL).POCT-GLUCOSE [id number] 08:09:00 Test Item Value Reference Range Interpretation Comments POC-GLUCOSE METER 117 mg/dL 70-110 H TESTED AT [facility] 67[address] ([facility]) (test code = [place] 1538) [address] CALCIUM, [id number] 05:54:00 Test Item Value Reference Range Interpretation Comments CALCIUM IONIZED (BEAKER) (test 1.01 mmol/L 1.12-1.27 L code = 698) PH, BLOOD (BEAKER) (test code = 7.45 1810) COMPREHENSIVE METABOLIC [id number] 05:07:00 Test Item Value Reference Range Interpretation Comments TOTAL PROTEIN 5.4 gm/dL 6.0-8.3 L (BEAKER) (test code = 770) ALBUMIN (BEAKER) 2.5 g/dL 3.5-5.0 L (test code = 1145) ALKALINE PHOSPHATASE 100 U/L 40-150 (BEAKER) (test code = 346) BILIRUBIN TOTAL 3.0 mg/dL 0.2-1.2 H (BEAKER) (test code = 377) SODIUM (BEAKER) (test 137 meq/L 136-145 code = 381) POTASSIUM (BEAKER) 3.8 meq/L 3.5-5.1 (test code = 379) CHLORIDE (BEAKER) 110 meq/L 98-107 H (test code = 382) CO2 (BEAKER) (test 24 meq/L 22-29 code = 355) BLOOD UREA NITROGEN 6 mg/dL 7-21 L (BEAKER) (test code = 354) CREATININE (BEAKER) 0.66 mg/dL 0.57-1.25 (test code = 358) GLUCOSE RANDOM 100 mg/dL 70-105 (BEAKER) (test code = 652) CALCIUM (BEAKER) 7.7 mg/dL 8.4-10.2 L (test code = 697) AST (SGOT) (BEAKER) 65 U/L 5-34 H (test code = 353) ALT (SGPT) (BEAKER) 31 U/L 6-55 (test code = 347) EGFR (BEAKER) (test 123 ESTIMATE D GFR IS code = 1092) mL/min/1.73 sq NOT ACCURA TE m CREATININE CLEARANCE IN PREDICTING GLOMERULAR FILTRATION RATE . ESTIMATED GFR I S NOT APPLICABLE FOR DIALYSIS PATIEN TS. Specimen slightly [id number] 05:06:00 Test Item Value Reference Range Interpretation Comments PHOSPHORUS (BEAKER) (test code = 3.3 mg/dL 2.3-4.7 604) [id number] 05:06:00 Test Item Value Reference Range Interpretation Comments MAGNESIUM (BEAKER) (test code = 1.5 mg/dL 1.6-2.6 L 627) CBC W/PLT COUNT & AUTO [id number] 04:43:00 Test Item Value Reference Range Interpretation Comments WHITE BLOOD CELL COUNT (BEAKER) 5.8 K/ L 3.5-10.5 (test code = 775) RED BLOOD CELL COUNT (BEAKER) 2.70 M/ L 4.63-6.08 L (test code = 761) HEMOGLOBIN (BEAKER) (test code = 9.0 GM/DL 13.7-17.5 L 410) HEMATOCRIT (BEAKER) (test code = 27.8 % 40.1-51.0 L 411) MEAN CORPUSCULAR VOLUME (BEAKER) 103.0 fL 79.0-92.2 H (test code = 753) MEAN CORPUSCULAR HEMOGLOBIN 33.3 pg 25.7-32.2 H (BEAKER) (test code = 751) MEAN CORPUSCULAR HEMOGLOBIN CONC 32.4 GM/DL 32.3-36.5 (BEAKER) (test code = 752) RED CELL DISTRIBUTION WIDTH 14.2 % 11.6-14.4 (BEAKER) (test code = 412) PLATELET COUNT (BEAKER) (test code 45 K/CU MM 150-450 L = 756) MEAN PLATELET VOLUME (BEAKER) 10.1 fL 9.4-12.4 (test code = 754) NUCLEATED RED BLOOD CELLS (BEAKER) 0 /100 WBC 0-0 (test code = 413) NEUTROPHILS RELATIVE PERCENT 47 % (BEAKER) (test code = 429) LYMPHOCYTES RELATIVE PERCENT 35 % (BEAKER) (test code = 430) MONOCYTES RELATIVE PERCENT 12 % (BEAKER) (test code = 431) EOSINOPHILS RELATIVE PERCENT 4 % (BEAKER) (test code = 432) BASOPHILS RELATIVE PERCENT 1 % (BEAKER) (test code = 437) NEUTROPHILS ABSOLUTE COUNT 2.68 K/ L 1.78-5.38 (BEAKER) (test code = 670) LYMPHOCYTES ABSOLUTE COUNT 2.03 K/ L 1.32-3.57 (BEAKER) (test code = 414) MONOCYTES ABSOLUTE COUNT (BEAKER) 0.71 K/ L 0.30-0.82 (test code = 415) EOSINOPHILS ABSOLUTE COUNT 0.23 K/ L 0.04-0.54 (BEAKER) (test code = 416) BASOPHILS ABSOLUTE COUNT (BEAKER) 0.03 K/ L 0.01-0.08 (test code = 417) IMMATURE GRANULOCYTES-RELATIVE 1 % 0-1 PERCENT (BEAKER) (test code = 2801) POCT-GLUCOSE [id number] 21:35:00 Test Item Value Reference Range Interpretation Comments POC-GLUCOSE METER 154 mg/dL 70-110 H TESTED AT [place] [address] ([facility]) (test code = [facility] 1538) [address] POCT-GLUCOSE [id number] 17:21:00 Test Item Value Reference Range Interpretation Comments POC-GLUCOSE METER 138 mg/dL 70-110 H TESTED AT [place] [address] ([facility]) (test code = [facility] 1538) [address] POCT-GLUCOSE [id number] 13:27:00 Test Item Value Reference Range Interpretation Comments POC-GLUCOSE METER 166 mg/dL 70-110 H TESTED AT [place] [address] ([facility]) (test code = [facility] 1538) [address] CBC W/PLT COUNT & AUTO [id number] 12:00:00 Test Item Value Reference Range Interpretation Comments WHITE BLOOD CELL COUNT (BEAKER) 6.0 K/ L 3.5-10.5 (test code = 775) RED BLOOD CELL COUNT (BEAKER) 2.79 M/ L 4.63-6.08 L (test code = 761) HEMOGLOBIN (BEAKER) (test code = 9.4 GM/DL 13.7-17.5 L 410) HEMATOCRIT (BEAKER) (test code = 28.2 % 40.1-51.0 L 411) MEAN CORPUSCULAR VOLUME (BEAKER) 101.1 fL 79.0-92.2 H (test code = 753) MEAN CORPUSCULAR HEMOGLOBIN 33.7 pg 25.7-32.2 H (BEAKER) (test code = 751) MEAN CORPUSCULAR HEMOGLOBIN CONC 33.3 GM/DL 32.3-36.5 (BEAKER) (test code = 752) RED CELL DISTRIBUTION WIDTH 14.2 % 11.6-14.4 (BEAKER) (test code = 412) PLATELET COUNT (BEAKER) (test code 47 K/CU MM 150-450 L = 756) MEAN PLATELET VOLUME (BEAKER) 9.9 fL 9.4-12.4 (test code = 754) NUCLEATED RED BLOOD CELLS (BEAKER) 0 /100 WBC 0-0 (test code = 413) (CELLAVISION MANUAL DIFF)[id number] 12:00:00 Test Item Value Reference Range Interpretation Comments NEUTROPHILS - REL 64 % (CELLAVISION)(BEAKER) (test code = 2816) LYMPHOCYTES - REL 28 % (CELLAVISION)(BEAKER) (test code = 2817) MONOCYTES - REL 5 % (CELLAVISION)(BEAKER) (test code = 2818) EOSINOPHILS - REL 3 % (CELLAVISION)(BEAKER) (test code = 2819) NEUTROPHILS - ABS 3.84 K/ul 1.78-5.38 (CELLAVISION)(BEAKER) (test code = 2830) LYMPHOCYTES - ABS 1.68 K/ul 1.32-3.57 (CELLAVISION)(BEAKER) (test code = 2831) MONOCYTES - ABS 0.30 K/uL 0.30-0.82 (CELLAVISION)(BEAKER) (test code = 2832) EOSINOPHILS - ABS 0.18 K/uL 0.04-0.54 (CELLAVISION)(BEAKER) (test code = 2834) TOTAL COUNTED (BEAKER) (test code = 100 1351) WBC MORPHOLOGY (BEAKER) (test code Normal = 487) PLT MORPHOLOGY (BEAKER) (test code Normal = 486) ANISOCYTOSIS (BEAKER) (test code = 1+ few 961) MACROCYTES (BEAKER) (test code = 1+ few 964) ARTIFACT (CELLAVISION)(BEAKER) Present (test code = 3432) PLATELET CONCENTRATION Decreased (CELLAVISION)(BEAKER) (test code = 3438) Received comment: User comments: Slide comments:POCT-GLUCOSE [id number] 11:52:00 Test Item Value Reference Range Interpretation Comments POC-GLUCOSE METER 180 mg/dL 70-110 H TESTED AT [facility] 67[address] (BEAKER) (test code = [facility] 1538) [address] POCT-GLUCOSE [id number] 08:09:00 Test Item Value Reference Range Interpretation Comments POC-GLUCOSE METER 115 mg/dL 70-110 H TESTED AT [facility] [address] (BEAKER) (test code = [facility] 1538) [address] COMPREHENSIVE METABOLIC [id number] 05:59:00 Test Item Value Reference Range Interpretation Comments TOTAL PROTEIN 5.4 gm/dL 6.0-8.3 L (BEAKER) (test code = 770) ALBUMIN (BEAKER) 2.6 g/dL 3.5-5.0 L (test code = 1145) ALKALINE PHOSPHATASE 79 U/L 40-150 (BEAKER) (test code = 346) BILIRUBIN TOTAL 3.1 mg/dL 0.2-1.2 H (BEAKER) (test code = 377) SODIUM (BEAKER) (test 137 meq/L 136-145 code = 381) POTASSIUM (BEAKER) 3.7 meq/L 3.5-5.1 (test code = 379) CHLORIDE (BEAKER) 109 meq/L 98-107 H (test code = 382) CO2 (BEAKER) (test 23 meq/L 22-29 code = 355) BLOOD UREA NITROGEN 7 mg/dL 7-21 (BEAKER) (test code = 354) CREATININE (BEAKER) 0.68 mg/dL 0.57-1.25 (test code = 358) GLUCOSE RANDOM 130 mg/dL 70-105 H (BEAKER) (test code = 652) CALCIUM (BEAKER) 7.6 mg/dL 8.4-10.2 L (test code = 697) AST (SGOT) (AKER) 74 U/L 5-34 H (test code = 353) ALT (SGPT) (AKER) 32 U/L 6-55 (test code = 347) EGFR ([facility]) (test 119 ESTIMATE D GFR IS code = 1092) mL/min/1.73 sq NOT ACCURA TE m CREATININE CLEARANCE IN PREDICTING GLOMERULAR FILTRATION RATE . ESTIMATED GFR I S NOT APPLICABLE FOR DIALYSIS PATIEN TS. Specimen slightly [id number] 05:57:00 Test Item Value Reference Range Interpretation Comments MAGNESIUM ([facility]) (test code = 1.6 mg/dL 1.6-2.6 627) POCT-GLUCOSE [id number] 22:30:00 Test Item Value Reference Range Interpretation Comments POC-GLUCOSE METER 186 mg/dL 70-110 H TESTED AT [place] [address] ([facility]) (test code = NICOLE [facility]rit[facility] 1538) [address] POCT-GLUCOSE [id number] 18:33:00 Test Item Value Reference Range Interpretation Comments POC-GLUCOSE METER 117 mg/dL 70-110 H TESTED AT [place] [address] ([facility]) (test code = [facility] Juan J [facility] 1538) [id number] U/S, [id number] 17:34:00REFERRING MD: CHERELLE SALVADOR Please give 25g albumin if over 3L removed, 50g if over 5L removedReason for exam:->ascites, encephalopathy, r/o SBPFINAL REPORT PROCEDURE: Ultrasound-guided paracentesis. Operators: This procedure was performed by DARYL Charles under my direct supervision. INDICATION: Ascites. DESCRIPTION : After obtaining informed written consent, ultrasound scan of the abdomen identified ascites in theright mid quadrant. The overlying skin was prepped and draped in the usual, sterile fashion and local 2% lidocaine anesthesia was administered. A 5 Russian catheter was advanced into the peritoneal cavity and 1300 cc of addison fluid was removed. The catheter was removed without immediate complication. Samples left with interstitial sent to the lab for analysis. IMPRESSION:Uncomplicated ultrasound-guided paracentesis with 1300 cc fluid removed. Signed: Mauricio Culleneport Verified Date/Time: 10/29/2018 17:34:00 Reading Location: [facility] [id number] Ultrasound Reading Room VANCOMYCIN LEVEL, TROUGH 2018-10-29 17:22:00 Test Item Value Reference Range Interpretation Comments VANCOMYCIN TROUGH (BEAKER) (test 7.3 ug/mL 10.0-20.0 L code = 522) CBC W/PLT COUNT & AUTO [id number] 15:00:00 Test Item Value Reference Range Interpretation Comments WHITE BLOOD CELL COUNT (BEAKER) 7.2 K/ L 3.5-10.5 (test code = 775) RED BLOOD CELL COUNT (BEAKER) 2.76 M/ L 4.63-6.08 L (test code = 761) HEMOGLOBIN (BEAKER) (test code = 9.2 GM/DL 13.7-17.5 L 410) HEMATOCRIT (BEAKER) (test code = 28.9 % 40.1-51.0 L 411) MEAN CORPUSCULAR VOLUME (BEAKER) 104.7 fL 79.0-92.2 H (test code = 753) MEAN CORPUSCULAR HEMOGLOBIN 33.3 pg 25.7-32.2 H (BEAKER) (test code = 751) MEAN CORPUSCULAR HEMOGLOBIN CONC 31.8 GM/DL 32.3-36.5 L (BEAKER) (test code = 752) RED CELL DISTRIBUTION WIDTH 14.6 % 11.6-14.4 H (BEAKER) (test code = 412) PLATELET COUNT (BEAKER) (test code 44 K/CU MM 150-450 L = 756) MEAN PLATELET VOLUME (BEAKER) 10.2 fL 9.4-12.4 (test code = 754) NUCLEATED RED BLOOD CELLS (BEAKER) 0 /100 WBC 0-0 (test code = 413) NEUTROPHILS RELATIVE PERCENT 53 % (BEAKER) (test code = 429) LYMPHOCYTES RELATIVE PERCENT 31 % (BEAKER) (test code = 430) MONOCYTES RELATIVE PERCENT 12 % (BEAKER) (test code = 431) EOSINOPHILS RELATIVE PERCENT 3 % (BEAKER) (test code = 432) BASOPHILS RELATIVE PERCENT 1 % (BEAKER) (test code = 437) NEUTROPHILS ABSOLUTE COUNT 3.83 K/ L 1.78-5.38 (BEAKER) (test code = 670) LYMPHOCYTES ABSOLUTE COUNT 2.20 K/ L 1.32-3.57 (BEAKER) (test code = 414) MONOCYTES ABSOLUTE COUNT (BEAKER) 0.83 K/ L 0.30-0.82 H (test code = 415) EOSINOPHILS ABSOLUTE COUNT 0.24 K/ L 0.04-0.54 (BEAKER) (test code = 416) BASOPHILS ABSOLUTE COUNT (BEAKER) 0.04 K/ L 0.01-0.08 (test code = 417) IMMATURE GRANULOCYTES-RELATIVE 1 % 0-1 PERCENT (BEAKER) (test code = 2801) BODY FLUID CELL COUNT WITH [id number] 13:45:00 Test Item Value Reference Range Interpretation Comments APPEARANCE FLUID (BEAKER) (test Hazy Clear A code = 510) COLOR FLUID (BEAKER) (test code Yellow Colorless, Straw A = 511) RBC FLUID (BEAKER) (test code = 6000 /cu mm <=1 H 513) ADJUSTED WBC FLUID (BEAKER) 252 /cu mm <=5 H (test code = 1691) LINING CELLS (BEAKER) (test code 28 /cu mm <=1 H = 1590) NEUTROPHILS FLUID (BEAKER) (test 36 % code = 1656) LYMPHS FLUID (BEAKER) (test code 22 % = 488) MONO/MACROPHAGE FLUID (BEAKER) 42 % (test code = 489) EOSINOPHILS FLUID (BEAKER) (test 0 % code = 491) BASO FLUID (BEAKER) (test code = 0 % 492) CONTAINER BODY FLUID (BEAKER) EDTA Tube (test code = 2873) RESPIRATORY PANEL [id number] 12:27:00 Test Item Value Reference Range Interpretation Comments HUMAN METAPNEUMOVIRUS Not detected Not detected, (BEAKER) (test code = 2683) Equivocal RHINOVIRUS (BEAKER) (test Not detected Not detected, code = 2684) Equivocal INFLUENZA A (BEAKER) (test Not detected Not detected, code = 2685) Equivocal INFLUENZA A (NO SUBTYPE) Not detected, (test code = 3606) Equivocal INFLUENZA A SUBTYPE H1 Not detected, (BEAKER) (test code = 2686) Equivocal INFLUENZA A SUBTYPE H3 Not detected, (BEAKER) (test code = 2687) Equivocal INFLUENZA A SUBTYPE H1-2009 Not detected, (BEAKER) (test code = 3198) Equivocal INFLUENZA B (BEAKER) (test Not detected Not detected, code = 2688) Equivocal RESPIRATORY SYNCYTIAL VIRUS Not detected Not detected, (BEAKER) (test code = 3199) Equivocal PARAINFLUENZA VIRUS 1 Not detected Not detected, (BEAKER) (test code = 2691) Equivocal PARAINFLUENZA VIRUS 2 Not detected Not detected, (BEAKER) (test code = 2692) Equivocal PARAINFLUENZA VIRUS 3 Not detected Not detected, (BEAKER) (test code = 2693) Equivocal PARAINFLUENZA VIRUS 4 Not detected Not detected, (BEAKER) (test code = 3200) Equivocal ADENOVIRUS (BEAKER) (test Not detected Not detected, code = 2694) Equivocal CORONAVIRUS 229E (BEAKER) Not detected Not detected, (test code = 3201) Equivocal CORONAVIRUS HKU1 (BEAKER) Not detected Not detected, (test code = 3202) Equivocal CORONAVIRUS NL63 (BEAKER) Not detected Not detected, (test code = 3203) Equivocal CORONAVIRUS OC43 (BEAKER) Not detected Not detected, (test code = 3204) Equivocal BORDETELLA PERTUSSIS Not detected Not detected, (BEAKER) (test code = 3205) Equivocal CHLAMYDOPHILA PNEUMONIAE Not detected Not detected, (BEAKER) (test code = 3206) Equivocal MYCOPLASMA PNEUMONIAE Not detected Not detected, (BEAKER) (test code = 3207) Equivocal Other viruses and bacteria not targeted by this PCR panel cannot be excluded; therefore clinical correlation and follow up of serology, culture results, and other molecular studies is required. The results are not intended to be used as the sole means for clinical diagnosis or patient management decisions. This sample was tested at the [facility] Molecular Diagnostics Laboratory using the TripleGiftArray Respiratory Panel. It is FDA cleared and has been verified and approved by the [facility] for clinical use on nasopharyngeal swab specimens.The performance of the FilmArrayRP has not been established in individuals who received influenza vaccine. Recent administration ofa nasal influenza vaccine may cause false positive results for Influenza A and/orInfluenza B.POCT-GLUCOSE [id number] 12:16:00 Test Item Value Reference Range Interpretation Comments POC-GLUCOSE METER 196 mg/dL 70-110 H TESTED AT [facility] 6720 (BEAKER) (test code = [place] 1538) [id number] RESPIRATORY PANEL [id number] 10:59:00 Test Item Value Reference Range Interpretation Comments HUMAN METAPNEUMOVIRUS Not detected Not detected, (BEAKER) (test code = 2683) Equivocal RHINOVIRUS (BEAKER) (test Not detected Not detected, code = 2684) Equivocal INFLUENZA A (BEAKER) (test Not detected Not detected, code = 2685) Equivocal INFLUENZA A (NO SUBTYPE) Not detected, (test code = 3606) Equivocal INFLUENZA A SUBTYPE H1 Not detected, (BEAKER) (test code = 2686) Equivocal INFLUENZA A SUBTYPE H3 Not detected, (BEAKER) (test code = 2687) Equivocal INFLUENZA A SUBTYPE H1-2009 Not detected, (BEAKER) (test code = 3198) Equivocal INFLUENZA B (BEAKER) (test Not detected Not detected, code = 2688) Equivocal RESPIRATORY SYNCYTIAL VIRUS Not detected Not detected, (BEAKER) (test code = 3199) Equivocal PARAINFLUENZA VIRUS 1 Not detected Not detected, (BEAKER) (test code = 2691) Equivocal PARAINFLUENZA VIRUS 2 Not detected Not detected, (BEAKER) (test code = 2692) Equivocal PARAINFLUENZA VIRUS 3 Not detected Not detected, (BEAKER) (test code = 2693) Equivocal PARAINFLUENZA VIRUS 4 Not detected Not detected, (BEAKER) (test code = 3200) Equivocal ADENOVIRUS (BEAKER) (test Not detected Not detected, code = 2694) Equivocal CORONAVIRUS 229E (BEAKER) Not detected Not detected, (test code = 3201) Equivocal CORONAVIRUS HKU1 (BEAKER) Not detected Not detected, (test code = 3202) Equivocal CORONAVIRUS NL63 (BEAKER) Not detected Not detected, (test code = 3203) Equivocal CORONAVIRUS OC43 (BEAKER) Not detected Not detected, (test code = 3204) Equivocal BORDETELLA PERTUSSIS Not detected Not detected, (BEAKER) (test code = 3205) Equivocal CHLAMYDOPHILA PNEUMONIAE Not detected Not detected, (BEAKER) (test code = 3206) Equivocal MYCOPLASMA PNEUMONIAE Not detected Not detected, (BEAKER) (test code = 3207) Equivocal Other viruses and bacteria not targeted by this PCR panel cannot be excluded; therefore clinical correlation and follow up of serology, culture results, and other molecular studies is required. The results are not intended to be used as the sole means for clinical diagnosis or patient management decisions. This sample was tested at the [facility] using the embraase FilmArray Respiratory Panel. It is FDA cleared and has been verified and approved by the [facility] for clinical use on nasopharyngeal swab specimens.The performance of the FilmArrayRP has not been established in individuals who received influenza vaccine. Recent administration ofa nasal influenza vaccine may cause false positive results for Influenza A and/orInfluenza B.POCT-GLUCOSE [id number] 08:15:00 Test Item Value Reference Range Interpretation Comments POC-GLUCOSE METER 184 mg/dL 70-110 H TESTED AT [facility] 4232 (BEAKER) (test code = NICOLE Arita DAYANNA TRUJILLO 1538) 76549 CBC W/PLT COUNT & AUTO [id number] 07:49:00 Test Item Value Reference Range Interpretation Comments WHITE BLOOD CELL COUNT (BEAKER) 7.2 K/ L 3.5-10.5 (test code = 775) RED BLOOD CELL COUNT (BEAKER) 2.66 M/ L 4.63-6.08 L (test code = 761) HEMOGLOBIN (BEAKER) (test code = 8.9 GM/DL 13.7-17.5 L 410) HEMATOCRIT (BEAKER) (test code = 27.2 % 40.1-51.0 L 411) MEAN CORPUSCULAR VOLUME (BEAKER) 102.3 fL 79.0-92.2 H (test code = 753) MEAN CORPUSCULAR HEMOGLOBIN 33.5 pg 25.7-32.2 H (BEAKER) (test code = 751) MEAN CORPUSCULAR HEMOGLOBIN CONC 32.7 GM/DL 32.3-36.5 (BEAKER) (test code = 752) RED CELL DISTRIBUTION WIDTH 14.5 % 11.6-14.4 H (BEAKER) (test code = 412) PLATELET COUNT (BEAKER) (test code 45 K/CU MM 150-450 L = 756) MEAN PLATELET VOLUME (BEAKER) 10.0 fL 9.4-12.4 (test code = 754) NUCLEATED RED BLOOD CELLS (BEAKER) 0 /100 WBC 0-0 (test code = 413) (CELLAVISION MANUAL DIFF)2018-10-29 07:49:00 Test Item Value Reference Range Interpretation Comments NEUTROPHILS - REL 78 % (CELLAVISION)(BEAKER) (test code = 2816) LYMPHOCYTES - REL 16 % (CELLAVISION)(BEAKER) (test code = 2817) MONOCYTES - REL 3 % (CELLAVISION)(BEAKER) (test code = 2818) EOSINOPHILS - REL 2 % (CELLAVISION)(BEAKER) (test code = 2819) BASOPHILS - REL 1 % (CELLAVISION)(BEAKER) (test code = 2820) NEUTROPHILS - ABS 5.62 K/ul 1.78-5.38 H (CELLAVISION)(BEAKER) (test code = 2830) LYMPHOCYTES - ABS 1.15 K/ul 1.32-3.57 L (CELLAVISION)(BEAKER) (test code = 2831) MONOCYTES - ABS 0.22 K/uL 0.30-0.82 L (CELLAVISION)(BEAKER) (test code = 2832) EOSINOPHILS - ABS 0.14 K/uL 0.04-0.54 (CELLAVISION)(BEAKER) (test code = 2834) BASOPHILS - ABS 0.07 K/uL 0.01-0.08 (CELLAVISION)(BEAKER) (test code = 2835) TOTAL COUNTED (BEAKER) (test code = 100 1351) RBC MORPHOLOGY (BEAKER) (test code Normal = 762) PLT MORPHOLOGY (BEAKER) (test code Normal = 486) SMUDGE CELLS (BEAKER) (test code = Present 1371) PLATELET CONCENTRATION Decreased (CELLAVISION)(BEAKER) (test code = 3438) Received comment: User comments: Slide comments:COMPREHENSIVE METABOLIC PANEL 2018-10-29 04:32:00 Test Item Value Reference Range Interpretation Comments TOTAL PROTEIN 5.3 gm/dL 6.0-8.3 L (BEAKER) (test code = 770) ALBUMIN (BEAKER) 2.7 g/dL 3.5-5.0 L (test code = 1145) ALKALINE PHOSPHATASE 67 U/L 40-150 (BEAKER) (test code = 346) BILIRUBIN TOTAL 4.3 mg/dL 0.2-1.2 H (BEAKER) (test code = 377) SODIUM (BEAKER) (test 135 meq/L 136-145 L code = 381) POTASSIUM (BEAKER) 3.6 meq/L 3.5-5.1 (test code = 379) CHLORIDE (BEAKER) 108 meq/L 98-107 H (test code = 382) CO2 (BEAKER) (test 23 meq/L 22-29 code = 355) BLOOD UREA NITROGEN 12 mg/dL 7-21 (BEAKER) (test code = 354) CREATININE (BEAKER) 0.65 mg/dL 0.57-1.25 (test code = 358) GLUCOSE RANDOM 118 mg/dL 70-105 H (BEAKER) (test code = 652) CALCIUM (BEAKER) 7.6 mg/dL 8.4-10.2 L (test code = 697) AST (SGOT) (BEAKER) 67 U/L 5-34 H (test code = 353) ALT (SGPT) (BEAKER) 28 U/L 6-55 (test code = 347) EGFR (BEAKER) (test 125 ESTIMATE D GFR IS code = 1092) mL/min/1.73 sq NOT ACCURA TE m CREATININE CLEARANCE IN PREDICTING GLOMERULAR FILTRATION RATE . ESTIMATED GFR I S NOT APPLICABLE FOR DIALYSIS PATIEN TS. Specimen moderately [id number] 04:31:00 Test Item Value Reference Range Interpretation Comments MAGNESIUM (BEAKER) (test code = 1.9 mg/dL 1.6-2.6 627) LACTIC ACID, [id number] 04:18:00 Test Item Value Reference Range Interpretation Comments LACTATE BLOOD VENOUS (2) (BEAKER) 1.3 mmol/L 0.5-2.2 (test code = 2872) Specimen moderately ictericPOCT-GLUCOSE [id number] 18:00:00 Test Item Value Reference Range Interpretation Comments POC-GLUCOSE METER 121 mg/dL 70-110 H TESTED AT [facility] [address] (BEAKER) (test code = [place] 1538) [id number] 12:39:00 Test Item Value Reference Range Interpretation Comments PROCALCITONIN (BEAKER) (test code 4.50 ng/mL <0.05 H = 3036) SEPSIS RISK (ng/mL)Low: 0.05-0.50Intermediate: 0.51-2.00High: >=2.01POCT-GLUCOSE [id number] 12:20:00 Test Item Value Reference Range Interpretation Comments POC-GLUCOSE METER 148 mg/dL 70-110 H TESTED AT [facility] [address] (BEAKER) (test code = [place] 1538) [address] LEGIONELLA ANTIGEN, [id number] 12:13:00 Test Item Value Reference Range Interpretation Comments L. PNEUMOPHILA Negative - see Negative fo r L. SEROGP 1 UR AG comment pneumophila ([place]) (test code serogrou p 1 antigen, = 1156) suggesting no r ecent or current infe ction with this serog roup. Legionellosis c annot be ruled out si nce other serogroup s and species may cau se disease. STREP PNEUMONIAE [id number] 12:13:00 Test Item Value Reference Range Interpretation Comments STREP PNEUMONIAE Presumptive negative Presumptive negative ANTIGEN (AKER) for pneumococcal for pneumococcal (test code = 1615) pneumonia - see pneumonia - see comment commen Presumptive negative for pneumococcal pneumonia, suggesting no current or recent pneumococcal infection. Infection due to S. pneumoniae cannot be ruled out since the antigen present in the sample may be below the detection limit of the test. RAPID INFLUENZA A&B [id number] 12:11:00 Test Item Value Reference Range Interpretation Comments RAPID INFLUENZA A AG (BEAKER) Negative Negative, Inconclusive (test code = 1622) RAPID INFLUENZA B AG (BEAKER) Negative Negative, Inconclusive (test code = 1623) LACTIC ACID, [id number] 10:51:00 Test Item Value Reference Range Interpretation Comments LACTATE BLOOD VENOUS (2) (BEAKER) 3.0 mmol/L 0.5-2.2 H (test code = 2872) Specimen moderately ictericU/S, ABDOMINAL, [id number] 07:19:00REFJENISE GOMEZ: CHERELLE SALVADOR Please perform with [...] in size, contour, and echogenicity. The right k idney measures 12.0 cm in length and the [...] MDReport Verified Date/Time: 10/28/2018 07:19:25 Reading Location: [facility] B1 C013T [facility] Reading Room RAPID DRUG SCREEN, [id number] 07:07:00 Test Item Value Reference Range Interpretation Comments BARBITURATE URINE (BEAKER) (test Negative Negative code = 725) BENZODIAZEPINE SCREEN URINE (BEAKER) Negative Negative (test code = 726) COCAINE (METAB.) SCREEN (BEAKER) Negative Negative (test code = 1164) METHADONE SCREEN (BEAKER) (test code Negative Negative = 1436) OPIATE SCREEN URINE (BEAKER) (test Positive Negative A code = 734) CANNABINOID SCREEN URINE (BEAKER) Negative Negative (test code = 727) AMPH/METHAMPH SCREEN (BEAKER) (test Negative Negative code = 1438) PHENCYCLIDINE SCREEN URINE (BEAKER) Negative Negative (test code = 608) DRUG CUTOFF CONC.Cocaine 300 ng/mL Cannabinoid 50 ng/mL Benzodiazepine 200 ng/mLBarbiturate 200 ng/mLPhencyclidine 25 ng/mLOpiate 300 ng/mLMethadone 300 ng/mLAmphetamine/ 1000 ng/mL MethamphetamineOxycodone 300 ng/mLThis assay provides an unconfirmed qualitative test result for the clinical management of patients in emergency situations. Chain of custody not maintained. Some xyuw-vxt-pigecac medications, as well as adulterants, may cause inaccurate results. Clinical correlation should be applied. A more comprehensive drug screen or confirmation of a detected drug may be performed upon request.CT, BRAIN, WITHOUT [id number] 06:42:00REFERRING MD: CHERELLE FRANCISCO REPORT CT, BRAIN, WITHOUT CONTRAST CLINICAL [...] Verified Date/Time: 10/28/2018 06:42:47 VITAMIN B12 AND [id number] 06:21:00 Test Item Value Reference Range Interpretation Comments VITAMIN B12 (BEAKER) (test code = 719 pg/mL 213-816 774) FOLATE (BEAKER) (test code = 362) 13.7 ng/mL >=7.0 TROPONIN [id number] 06:05:00 Test Item Value Reference Range Interpretation Comments TROPONIN I (BEAKER) (test code = 0.03 ng/mL 0.00-0.03 397) Troponin I (TnI) levels must be interpreted [...] 2018-10-28 05:50:00 Test Item Value Reference Range Interpretation Comments IRON (BEAKER) (test code = 547) 104.0 ug/dL 40.0-160.0 TOTAL IRON BINDING CAPACITY 119 ug/dL 250-450 L (BEAKER) (test code = 769) IRON % SATURATION (2) (BEAKER) 87 % 20-55 H (test code = 2590) COMPREHENSIVE METABOLIC [id number] 05:44:00 Test Item Value Reference Range Interpretation Comments TOTAL PROTEIN 6.1 gm/dL 6.0-8.3 (BEAKER) (test code = 770) ALBUMIN (BEAKER) 3.1 g/dL 3.5-5.0 L (test code = 1145) ALKALINE PHOSPHATASE 90 U/L 40-150 (BEAKER) (test code = 346) BILIRUBIN TOTAL 5.2 mg/dL 0.2-1.2 H (BEAKER) (test code = 377) SODIUM (BEAKER) (test 136 meq/L 136-145 code = 381) POTASSIUM (BEAKER) 4.1 meq/L 3.5-5.1 (test code = 379) CHLORIDE (BEAKER) 105 meq/L 98-107 (test code = 382) CO2 (BEAKER) (test 22 meq/L 22-29 code = 355) BLOOD UREA NITROGEN 13 mg/dL 7-21 (BEAKER) (test code = 354) CREATININE (BEAKER) 1.01 mg/dL 0.57-1.25 (test code = 358) GLUCOSE RANDOM 122 mg/dL 70-105 H (BEAKER) (test code = 652) CALCIUM (BEAKER) 7.8 mg/dL 8.4-10.2 L (test code = 697) AST (SGOT) (BEAKER) 34 U/L 5-34 (test code = 353) ALT (SGPT) (BEAKER) 17 U/L 6-55 (test code = 347) EGFR (BEAKER) (test 75 mL/min/1.73 ESTIMA TETE GFR IS code = 1092) sq m NOT ACCURATE CREATININE CLEARANCE IN PREDICTING GLOMERULAR FILTRATION RATE . ESTIMATED GFR I S NOT APPLICABLE FOR DIALYSIS PATIEN TS. Specimen moderately [id number] 05:38:00 Test Item Value Reference Range Interpretation Comments MAGNESIUM (BEAKER) (test code = 2.3 mg/dL 1.6-2.6 627) LACTIC ACID, [id number] 05:32:00 Test Item Value Reference Range Interpretation Comments LACTATE BLOOD VENOUS 4.1 mmol/L 0.5-2.2 H Specime n slightly (2) (BEAKER) (test hemolyzed code = 2942) Specimen moderately ictericTROPONIN [id number] 02:28:00 Test Item Value Reference Range Interpretation Comments TROPONIN I (BEAKER) (test code = 0.05 ng/mL 0.00-0.03 H 397) Troponin I (TnI) levels must be interpreted [...] disease, and persistent tachyarrhythmia.RAD, ABDOMEN/KUB, 1 VIEW [id number] 02:04:00REFERRING MD: CHERELLE SALVADOR Reason for exam:->NG tube [...] Efrain Day MDReport Verified Date/Time: 10/28/2018 02:04:20 HROMBIN TIME/[id number] 01:58:00 Test Item Value Reference Range Interpretation Comments PROTIME (BEAKER) (test code = 18.8 seconds 11.9-14.2 H 759) INR (BEAKER) (test code = 370) 1.7 <=5.9 Effective 10/24/2018: PT Reference Range ChangeNew: 11.9-14.2 Previous: 11.7- 14.7RECOMMENDED COUMADIN/WARFARIN INR THERAPY RANGESSTANDARD DOSE: 2.0-3.0 Includes: PROPHYLAXIS for venous thrombosis, systemic embolization; TREATMENT for venous thrombosis and/or pulmonary embolus.HIGH RISK: Target INR is2.5-3.5 for patients wiht mechanical heart valves.CBC W/PLT COUNT & AUTO [id number] 01:45:00 Test Item Value Reference Range Interpretation Comments WHITE BLOOD CELL COUNT (BEAKER) 24.2 K/ L 3.5-10.5 H (test code = 775) RED BLOOD CELL COUNT (BEAKER) 3.25 M/ L 4.63-6.08 L (test code = 761) HEMOGLOBIN (BEAKER) (test code = 11.0 GM/DL 13.7-17.5 L 410) HEMATOCRIT (BEAKER) (test code = 33.0 % 40.1-51.0 L 411) MEAN CORPUSCULAR VOLUME (BEAKER) 101.5 fL 79.0-92.2 H (test code = 753) MEAN CORPUSCULAR HEMOGLOBIN 33.8 pg 25.7-32.2 H (BEAKER) (test code = 751) MEAN CORPUSCULAR HEMOGLOBIN CONC 33.3 GM/DL 32.3-36.5 (BEAKER) (test code = 752) RED CELL DISTRIBUTION WIDTH 14.4 % 11.6-14.4 (BEAKER) (test code = 412) PLATELET COUNT (BEAKER) (test code 73 K/CU MM 150-450 L = 756) MEAN PLATELET VOLUME (BEAKER) 10.0 fL 9.4-12.4 (test code = 754) NUCLEATED RED BLOOD CELLS (BEAKER) 0 /100 WBC 0-0 (test code = 413) (CELLAVISION MANUAL DIFF)2018-10-28 01:45:00 Test Item Value Reference Range Interpretation Comments NEUTROPHILS - REL 88 % (CELLAVISION)(BEAKER) (test code = 2816) LYMPHOCYTES - REL 1 % (CELLAVISION)(BEAKER) (test code = 2817) MONOCYTES - REL 1 % (CELLAVISION)(BEAKER) (test code = 2818) BANDS - REL (CELLAVISION)(BEAKER) 10 % 0-10 (test code = 2826) NEUTROPHILS - ABS 21.30 K/ul 1.78-5.38 H (CELLAVISION)(BEAKER) (test code = 2830) LYMPHOCYTES - ABS 0.24 K/ul 1.32-3.57 L (CELLAVISION)(BEAKER) (test code = 2831) MONOCYTES - ABS 0.24 K/uL 0.30-0.82 L (CELLAVISION)(BEAKER) (test code = 2832) BANDS - ABS (CELLAVISION)(BEAKER) 2.42 K/uL 0.00-0.80 H (test code = 2840) TOTAL COUNTED (BEAKER) (test code 100 = 1351) PLT MORPHOLOGY (BEAKER) (test code Normal = 486) SMUDGE CELLS (BEAKER) (test code = Present 1371) ANISOCYTOSIS (BEAKER) (test code = 1+ few 961) MACROCYTES (BEAKER) (test code = 1+ few 964) PLATELET CONCENTRATION Decreased (CELLAVISION)(BEAKER) (test code = 3438) Received comment: User comments: Slide comments:URINALYSIS W/ REFLEX URINE [id number] 01:36:00 Test Item Value Reference Range Interpretation Comments COLOR (BEAKER) (test code = 470) Yellow CLARITY (BEAKER) (test code = 469) Clear SPECIFIC GRAVITY UA (BEAKER) (test 1.034 1.001-1.035 code = 468) PH UA (BEAKER) (test code = 467) 6.0 5.0-8.0 PROTEIN UA (BEAKER) (test code = Negative Negative 464) GLUCOSE UA (BEAKER) (test code = Negative Negative 365) KETONES UA (BEAKER) (test code = Negative Negative 371) BILIRUBIN UA (BEAKER) (test code = Negative Negative 462) BLOOD UA (BEAKER) (test code = 461) Negative Negative NITRITE UA (BEAKER) (test code = Negative Negative 465) LEUKOCYTE ESTERASE UA (BEAKER) Negative Negative (test code = 466) UROBILINOGEN UA (BEAKER) (test code 2.0 mg/dL 0.2-1.0 H = 463) RBC UA (BEAKER) (test code = 519) < /HPF WBC UA (BEAKER) (test code = 520) < /HPF SQUAMOUS EPITHELIAL (BEAKER) (test < /HPF code = 516) SOURCE(BEAKER) (test code = 2795) COMPREHENSIVE METABOLIC [id number] 01:16:00 Test Item Value Reference Range Interpretation Comments TOTAL PROTEIN 6.5 gm/dL 6.0-8.3 (BEAKER) (test code = 770) ALBUMIN (BEAKER) 2.3 g/dL 3.5-5.0 L (test code = 1145) ALKALINE PHOSPHATASE 134 U/L 40-150 (BEAKER) (test code = 346) BILIRUBIN TOTAL 4.9 mg/dL 0.2-1.2 H (BEAKER) (test code = 377) SODIUM (BEAKER) (test 135 meq/L 136-145 L code = 381) POTASSIUM (BEAKER) 4.7 meq/L 3.5-5.1 (test code = 379) CHLORIDE (BEAKER) 105 meq/L 98-107 (test code = 382) CO2 (BEAKER) (test 24 meq/L 22-29 code = 355) BLOOD UREA NITROGEN 11 mg/dL 7-21 (BEAKER) (test code = 354) CREATININE (BEAKER) 1.10 mg/dL 0.57-1.25 (test code = 358) GLUCOSE RANDOM 115 mg/dL 70-105 H (BEAKER) (test code = 652) CALCIUM (BEAKER) 8.0 mg/dL 8.4-10.2 L (test code = 697) AST (SGOT) (BEAKER) 39 U/L 5-34 H (test code = 353) ALT (SGPT) (BEAKER) 22 U/L 6-55 (test code = 347) EGFR (BEAKER) (test 68 mL/min/1.73 ESTIMA TETE GFR IS code = 1092) sq m NOT ACCURATE CREATININE CLEARANCE IN PREDICTING GLOMERULAR FILTRATION RATE . ESTIMATED GFR I S NOT APPLICABLE FOR DIALYSIS PATIEN TS. Specimen moderately [id number] 01:15:00 Test Item Value Reference Range Interpretation Comments AMMONIA (BEAKER) (test code = 348) 69 mol/L 18-72 LACTIC ACID, [id number] 01:08:00 Test Item Value Reference Range Interpretation Comments LACTATE BLOOD VENOUS (2) (BEAKER) 3.2 mmol/L 0.5-2.2 H (test code = 2872) Specimen moderately [id number] 01:08:00 Test Item Value Reference Range Interpretation Comments MAGNESIUM (BEAKER) (test code = 1.1 mg/dL 1.6-2.6 L 627) RAD, CHEST, 1 VIEW, NON [id number] 00:52:00REFERRING MD: CHERELLE SALVADOR Reason for exam:->sepsisShould this be performed at the bedside?->YesFINAL REPORT EXAMINATION: AP PORTABLE CHEST RADIOGRAPH CLINICAL [...] evidence of an acute osseous abnormality. Signed: Williams Lynneport Verified Date/Time: 10/28/2018 00:52:42 Reading Location: [id number] [facility] Reading Room ACTIN (SMOOTH MUSCLE) ANTIBODY, [id number] 08:28:00 Test Item Value Reference Range Interpretation Comments SCAN RESULT (test code = 3076601) [id number] 08:27:00 Test Item Value Reference Range Interpretation Comments SCAN RESULT (test code = 3145936) NILS TITER AND [id number] 09:55:00 Test Item Value Reference Range Interpretation Comments NILS TITER (BEAKER) (test code = :160 1541) NILS PATTERN (BEAKER) (test code = Speckled 1781) ANTI-NUCLEAR ANTIBODY (NILS)2018-10-05 09:54:00 Test Item Value Reference Range Interpretation Comments ANTI-NUCLEAR ANTIBODY (NILS) (BEAKER) Positive Negative A (test code = 418) Test performed by IFA method.[id number] 10:54:00 Test Item Value Reference Range Interpretation Comments FERRITIN (BEAKER) (test code = 361) 218 ng/mL 5-275 HEPATITIS A ANTIBODY, [id number] 10:18:00 Test Item Value Reference Range Interpretation Comments HEPATITIS A IGG ANTIBODY (BEAKER) Reactive Nonreactive A (test code = 2797) ALPHA FETOPROTEIN (AFP), TUMOR [id number] 10:14:00 Test Item Value Reference Range Interpretation Comments ALPHA-FETOPROTEIN (BEAKER) (test 3.5 ng/mL <10.0 code = 1094) HEPATITIS A ANTIBODY, [id number] 10:14:00 Test Item Value Reference Range Interpretation Comments HEPATITIS A IGM ANTIBODY (BEAKER) Nonreactive Nonreactive (test code = 498) HEPATITIS B CORE ANTIBODY, [id number] 10:14:00 Test Item Value Reference Range Interpretation Comments HEPATITIS B CORE TOTAL ANTIBODY Nonreactive Nonreactive (BEAKER) (test code = 497) HEPATITIS B SURFACE [id number] 09:42:00 Test Item Value Reference Range Interpretation Comments HEPATITIS B SURFACE ANTIBODY < mIU/mL <8.0 (BEAKER) (test code = 647) HEPATITIS B SURFACE [id number] 09:36:00 Test Item Value Reference Range Interpretation Comments HEPATITIS B SURFACE ANTIGEN (2) Nonreactive Nonreactive (BEAKER) (test code = 2585) IRON, TIBC, % SAT. (WITHOUT FERRITIN)2018-10-04 09:14:00 Test Item Value Reference Range Interpretation Comments IRON (BEAKER) (test code = 547) 83.0 ug/dL 40.0-160.0 TOTAL IRON BINDING CAPACITY 204 ug/dL 250-450 L (BEAKER) (test code = 769) IRON % SATURATION (2) (BEAKER) 41 % 20-55 (test code = 2590) [id number] 09:14:00 Test Item Value Reference Range Interpretation Comments ALPHA-1 ANTITRYPSIN (BEAKER) 159.30 mg/dL 90.00-200.00 (test code = 502) COMPREHENSIVE METABOLIC [id number] 09:10:00 Test Item Value Reference Range Interpretation Comments TOTAL PROTEIN 6.9 gm/dL 6.0-8.3 (BEAKER) (test code = 770) ALBUMIN (BEAKER) 2.8 g/dL 3.5-5.0 L (test code = 1145) ALKALINE PHOSPHATASE 208 U/L 40-150 H (BEAKER) (test code = 346) BILIRUBIN TOTAL 2.9 mg/dL 0.2-1.2 H (BEAKER) (test code = 377) SODIUM (BEAKER) (test 134 meq/L 136-145 L code = 381) POTASSIUM (BEAKER) 3.4 meq/L 3.5-5.1 L (test code = 379) CHLORIDE (BEAKER) 101 meq/L 98-107 (test code = 382) CO2 (BEAKER) (test 23 meq/L 22-29 code = 355) BLOOD UREA NITROGEN 6 mg/dL 7-21 L (BEAKER) (test code = 354) CREATININE (BEAKER) 0.76 mg/dL 0.57-1.25 (test code = 358) GLUCOSE RANDOM 61 mg/dL 70-105 L (BEAKER) (test code = 652) CALCIUM (BEAKER) 8.3 mg/dL 8.4-10.2 L (test code = 697) AST (SGOT) (BEAKER) 50 U/L 5-34 H (test code = 353) ALT (SGPT) (BEAKER) 35 U/L 6-55 (test code = 347) EGFR (BEAKER) (test 104 ESTIMATE D GFR IS code = 1092) mL/min/1.73 sq NOT ACCURA TE m CREATININE CLEARANCE IN PREDICTING GLOMERULAR FILTRATION RATE . ESTIMATED GFR I S NOT APPLICABLE FOR DIALYSIS PATIEN TS. Specimen slightly ictericBILIRUBIN, [id number] 09:10:00 Test Item Value Reference Range Interpretation Comments BILIRUBIN DIRECT (BEAKER) (test 1.4 mg/dL 0.1-0.5 H code = 706) PROTHROMBIN [id number] 08:38:00 Test Item Value Reference Range Interpretation Comments PROTIME (BEAKER) (test code = 17.6 seconds 11.7-14.7 H 759) INR (BEAKER) (test code = 370) 1.5 <=5.9 RECOMMENDED COUMADIN/WARFARIN INR THERAPY RANGESSTANDARD DOSE: 2.0 - 3.0 Includes: PROPHYLAXIS forvenous thrombosis, systemic embolization; TREATMENT for venous thrombosis and/or pulmonary embolus.HIGH RISK: Target INR is 2.5-3.5 for patients with mechanical heart valves.CBC W/PLT COUNT & AUTO DIFFERENTIAL 2018-10-04 08:35:00 Test Item Value Reference Range Interpretation Comments WHITE BLOOD CELL COUNT (BEAKER) 6.1 K/ L 3.5-10.5 (test code = 775) RED BLOOD CELL COUNT (BEAKER) 3.21 M/ L 4.63-6.08 L (test code = 761) HEMOGLOBIN (BEAKER) (test code = 10.8 GM/DL 13.7-17.5 L 410) HEMATOCRIT (BEAKER) (test code = 34.6 % 40.1-51.0 L 411) MEAN CORPUSCULAR VOLUME (BEAKER) 107.8 fL 79.0-92.2 H (test code = 753) MEAN CORPUSCULAR HEMOGLOBIN 33.6 pg 25.7-32.2 H (BEAKER) (test code = 751) MEAN CORPUSCULAR HEMOGLOBIN CONC 31.2 GM/DL 32.3-36.5 L (BEAKER) (test code = 752) RED CELL DISTRIBUTION WIDTH 14.4 % 11.6-14.4 (BEAKER) (test code = 412) PLATELET COUNT (BEAKER) (test code 56 K/CU MM 150-450 L = 756) MEAN PLATELET VOLUME (BEAKER) 11.8 fL 9.4-12.4 (test code = 754) NUCLEATED RED BLOOD CELLS (BEAKER) 0 /100 WBC 0-0 (test code = 413) NEUTROPHILS RELATIVE PERCENT 52 % (BEAKER) (test code = 429) LYMPHOCYTES RELATIVE PERCENT 31 % (BEAKER) (test code = 430) MONOCYTES RELATIVE PERCENT 12 % (BEAKER) (test code = 431) EOSINOPHILS RELATIVE PERCENT 4 % (BEAKER) (test code = 432) BASOPHILS RELATIVE PERCENT 1 % (BEAKER) (test code = 437) NEUTROPHILS ABSOLUTE COUNT 3.14 K/ L 1.78-5.38 (BEAKER) (test code = 670) LYMPHOCYTES ABSOLUTE COUNT 1.88 K/ L 1.32-3.57 (BEAKER) (test code = 414) MONOCYTES ABSOLUTE COUNT (BEAKER) 0.75 K/ L 0.30-0.82 (test code = 415) EOSINOPHILS ABSOLUTE COUNT 0.24 K/ L 0.04-0.54 (BEAKER) (test code = 416) BASOPHILS ABSOLUTE COUNT (BEAKER) 0.05 K/ L 0.01-0.08 (test code = 417) IMMATURE GRANULOCYTES-RELATIVE 1 % 0-1 PERCENT (BEAKER) (test code = 6611)
[2019-11-18 13:00] LABS: Absolute Lymphocytes (CBC) 1.7 K/uL (0.7-4.9); Basophils % 0.9 % (0-1.3); Hematocrit 23.9 % (39.6-49.0); Lymphocytes % 36.6 % (15.3-44.8); MPV 9.2 fL (7.6-11.3); RBC Red Blood Cell Count 3.15 M/uL (4.33-5.43)
[2019-11-18] MEDS ORDERED: FUROSEMIDE 40 MG/4 ML VIAL ONE (13:00)
[2019-11-18 13:14] LABS: ALT/SGPT 25 U/L (12-78); AST/SGOT 38 U/L (15-37); Albumin 2.1 g/dL (3.4-5.0); Alkaline Phosphatase 204 U/L (45-117); BUN Blood Urea Nitrogen 6 mg/dL (7-18); Bicarbonate 24 mmol/L (21-32); Bilirubin Direct 0.6 mg/dL (0-0.2); Bilirubin Total 1.4 mg/dL (0.2-1.0); Glucose Level 171 mg/dL (74-106); Lipase 193 U/L (73-393); Potassium 4.3 mmol/L (3.5-5.1); Protein, Total 6.6 g/dL (6.4-8.2); Sodium Level 140 mmol/L (136-145)
[2019-11-18 13:33] LABS: Anisocytosis 1+; Blood Morphology Comment NOTED (NOT SEEN); Platelet Estimate DECR; Poikilocytosis 1+; Urine White Blood Cell Casts OK
--- NOTE | 2019-11-18 13:33 | ER ---
Nurse's Notes [facility] Name: Tonny Cardona Age: 63 yrs Sex: Male : 1955 Arrival Date: 11/18/2019 Time: 11:29 Bed 14 Private MD: Diagnosis: Edema, unspecified-Lower extremities Presentation: 11/17 11:50 Chief complaint: Patient states: Swelling of both lower extremities for a week now. I ca1 had it before years ago, it goes away but this time it didn't. And sometimes when I walk, I get tired easily and get short of breath. Denies CHF. Coronavirus screen: Proceed with normal triage. Patient denies a cough. Patient denies shortness of breath or difficulty breathing. Patient denies measured and/or subjective temperature greater than 100.4F prior to today's visit. Patient denies travel on a cruise ship or to a country the [facility] currently lists as an affected area. Patient denies contact with known and/or suspected case of COVID-19. Ebola Screen: Patient negative for fever greater than or equal to 101.5 degrees Fahrenheit, and additional compatible Ebola Virus Disease symptoms Patient denies exposure to infectious person. Patient denies travel to an Ebola-affected area in the 21 days before illness onset. No symptoms or risks identified at this time. Initial Sepsis Screen: Does the patient meet any 2 criteria? No. Patient's initial sepsis screen is negative. Does the patient have a suspected source of infection? No. Patient's initial sepsis screen is negative. Risk Assessment: Do you want to hurt yourself or someone else? Patient reports no desire to harm self or others. Onset of symptoms was November 18, 2019. 11:50 Method Of Arrival: Ambulatory ca1 11:50 Acuity: FAIZA 3 ca1 Historical: - Allergies: 11:54 No Known Allergies; ca1 - PMHx: 11:54 Cirrhosis; Hypertension; Diabetes - NIDDM; psoriasis; ca1 - PSHx: 11:54 Hernia repair; ca1 - Immunization history:: Adult Immunizations up to date. - Social history:: Smoking status: Patient/guardian denies using tobacco, the patient reports quitting approximately 1.5 years ago, Patient/guardian denies using alcohol, street drugs, The patient lives with family. - Family history:: not pertinent. Screenin:21 Abuse screen: Denies threats or abuse. Denies injuries from another. Nutritional iw screening: No deficits noted. Tuberculosis screening: No symptoms or risk factors identified. Fall Risk None identified. Assessment: 12:21 General: Appears in no apparent distress. Behavior is calm, cooperative. Pain: Denies iw pain. Neuro: Level of Consciousness is awake, alert, obeys commands, Oriented to person, place, time, situation, Moves all extremities. Full function. Cardiovascular: Denies chest pain, nausea, palpitations, Patient's skin is warm and dry. Cardiovascular: Edema is 2+ to left midcalf, left ankle, left foot, right midcalf, right ankle and right foot. Respiratory: Reports shortness of breath on exertion Airway is patent Respiratory effort is even, unlabored, Respiratory pattern is regular, symmetrical. GI: Abdomen is round non-distended, obese. Derm: Skin is intact. Musculoskeletal: Range of motion: intact in all extremities. Vital Signs: 11:50 BP 136 / 75; Pulse 77; Resp 19 S; Temp 97.1(TE); Pulse Ox 99% on R/A; Weight 102.06 kg ca1 (R); Height 5 ft. 6 in. (167.64 cm) (R); Pain 0/10; 11:50 Body Mass Index 36.32 (102.06 kg, 167.64 cm) ca1 ED Course: 11:29 Patient arrived in ED. as 11:53 Triage completed. ca1 11:54 Arm band placed on right wrist. ca1 12:14 Ishan Bui MD is Attending Physician. ma2 12:21 Angela Allen RN is Primary Nurse. iw 12:21 Patient has correct armband on for positive identification. Placed in gown. Bed in low iw position. Call light in reach. Side rails up X2. Pulse ox on. NIBP on. 12:48 Initial lab(s) drawn, by me, sent to lab. Inserted saline lock: 20 gauge in right em1 antecubital area, using aseptic technique. Blood collected. 13:51 No provider procedures requiring assistance completed. IV discontinued, intact, iw bleeding controlled, No redness/swelling at site. Pressure dressing applied. Administered Medications: 12:58 Drug: Lasix 40 mg Route: IVP; Site: right antecubital; iw 13:25 Follow up: Response: No adverse reaction iw Outcome: 13:32 Discharge ordered by . ian 13:51 Discharged to home ambulatory. iw 13:51 Condition: good 13:51 Discharge instructions given to patient, Instructed on discharge instructions, follow up and referral plans. medication usage, Demonstrated understanding of instructions, follow-up care, medications, Prescriptions given X 1. 13:52 Patient left the ED. Signatures: Cheyenne Villela Irene, DIANE RN Roman Villela Shelby, RN RN Ishan Bui MD MD ma2 Neelma Dent RN RN ca1
--- NOTE | 2019-11-18 13:33 | EDPHYS ---
Physician Documentation [facility] Name: Tonny Cardona Age: 63 yrs Sex: Male : 1955 Arrival Date: 11/18/2019 Time: 11:29 Bed 14 Private MD: ED Physician Ishan Bui HPI: 11/17 12:33 This 63 yrs old Male presents to ER via Ambulatory with complaints of Feet ma2 Swelling. 12:33 The complaints affect the right foot and left foot. Associated signs and symptoms: ma2 Pertinent negatives: anorexia, chest pain, dizziness, fever, weakness. Severity of symptoms: At their worst the symptoms were moderate, in the emergency department the symptoms are unchanged. The patient has experienced similar episodes in the past. hx of CLD on lasix, and gets therapeutic peritoneal paracentesis frequently scheduled for one this Monday with dr. Ren. he has no sob or cough or chest pain, no le pain . Historical: - Allergies: 11:54 No Known Allergies; ca1 - PMHx: 11:54 Cirrhosis; Hypertension; Diabetes - NIDDM; psoriasis; ca1 - PSHx: 11:54 Hernia repair; ca1 - Immunization history:: Adult Immunizations up to date. - Social history:: Smoking status: Patient/guardian denies using tobacco, the patient reports quitting approximately 1.5 years ago, Patient/guardian denies using alcohol, street drugs, The patient lives with family. - Family history:: not pertinent. ROS: 12:33 Constitutional: Negative for fever, chills, and weight loss, Cardiovascular: Negative ma2 for chest pain, palpitations, and edema, Respiratory: Negative for shortness of breath, cough, wheezing, and pleuritic chest pain, Abdomen/GI: Negative for abdominal pain, nausea, diarrhea, and constipation, Back: Negative for injury and pain, : Negative for injury, bleeding, discharge, and swelling, Skin: Negative for injury, rash, and discoloration, Neuro: Negative for headache, weakness, numbness, tingling, and seizure, Psych: Negative for depression, anxiety, suicide ideation, homicidal ideation, and hallucinations. 12:33 All other systems are negative. Exam: 12:33 Constitutional: This is a well developed, well nourished patient who is awake, alert, ma2 and in no acute distress. Head/Face: Normocephalic, atraumatic. Eyes: Pupils equal round and reactive to light, extra-ocular motions intact. Lids and lashes normal. Conjunctiva and sclera are non-icteric and not injected. Cornea within normal limits. Periorbital areas with no swelling, redness, or edema. ENT: Nares patent. No nasal discharge, no septal abnormalities noted. Tympanic membranes are normal and external auditory canals are clear. Oropharynx with no redness, swelling, or masses, exudates, or evidence of obstruction, uvula midline. Mucous membranes moist. Neck: Trachea midline, no thyromegaly or masses palpated, and no cervical lymphadenopathy. Supple, full range of motion without nuchal rigidity, or vertebral point tenderness. No Meningismus. Chest/axilla: Normal chest wall appearance and motion. Nontender with no deformity. No lesions are appreciated. Cardiovascular: Regular rate and rhythm with a normal S1 and S2. No gallops, murmurs, or rubs. Normal PMI, no JVD. No pulse deficits. Respiratory: Lungs have equal breath sounds bilaterally, clear to auscultation and percussion. No rales, rhonchi or wheezes noted. No increased work of breathing, no retractions or nasal flaring. Abdomen/GI: Soft, non-tender, with normal bowel sounds. moderate distension, no tympany. No guarding or rebound. No evidence of tenderness throughout. Back: No spinal tenderness. No costovertebral tenderness. Full range of motion. Skin: Warm, dry with normal turgor. Normal color with no rashes, no lesions, and no evidence of cellulitis. MS/ Extremity: + bilat LE edema pitting 3 + equal bilat, otherwise Pulses equal, no cyanosis. Neurovascular intact. Full, normal range of motion. Neuro: Awake and alert, GCS 15, oriented to person, place, time, and situation. Cranial nerves II-XII grossly intact. Motor strength 5/5 in all extremities. Sensory grossly intact. Cerebellar exam normal. Normal gait. Vital Signs: 11:50 BP 136 / 75; Pulse 77; Resp 19 S; Temp 97.1(TE); Pulse Ox 99% on R/A; Weight 102.06 kg ca1 (R); Height 5 ft. 6 in. (167.64 cm) (R); Pain 0/10; 11:50 Body Mass Index 36.32 (102.06 kg, 167.64 cm) ca1 MDM: 12:14 Patient medically screened. ma2 12:33 Differential diagnosis: LE edema likely from CLD decompensation. ma2 13:25 Data reviewed: vital signs, nurses notes. Counseling: I had a detailed discussion with ma2 the patient and/or guardian regarding: the historical points, exam findings, and any diagnostic results supporting the discharge/admit diagnosis, the presence of at least one elevated blood pressure reading (>120/80) during this emergency department visit, the need for outpatient follow up. Response to treatment: the patient's symptoms have markedly improved after treatment. ED course: patient had good urine output and feels better, HB is 7.3. no prior tests in the last 6 months to compare with. he does have exertional dyspnea however he states that it is unchanged for the last months. he denies melena or bleeding anywhere, his vs is wnl and his symptoms are stable. i explained that this could be a chronic stable gi bleed or iron deficiency or anemia or chronic disease and he will need further workup. he will see dr ren in 4 days and his pcp in the next 2-3 days, i gave him return precaution for melena or worsening of any of his symptoms, he may needs blood transfusion in the near future. at this time patient does not want transfusion or admission. . 11/17 12:33 Order name: Basic Metabolic Panel; Complete Time: 13:24 ny2 11/17 12:33 Order name: CBC with Diff ny2 11/17 12:33 Order name: Hepatic Function; Complete Time: 13:24 ny2 11/17 12:33 Order name: Lipase; Complete Time: 13:24 ny2 11/17 13:34 Order name: CBC Smear Scan EDTN 11/17 12:33 Order name: IV Saline Lock; Complete Time: 12:48 ny2 11/17 12:33 Order name: Labs collected and sent; Complete Time: 12:48 ny2 Administered Medications: 12:58 Drug: Lasix 40 mg Route: IVP; Site: right antecubital; iw 13:25 Follow up: Response: No adverse reaction iw Disposition: 11/18/19 13:32 Discharged to Home. Impression: Edema, unspecified - Lower extremities . - Condition is Stable. - Discharge Instructions: Peripheral Edema. - Prescriptions for Lasix 20 mg Oral Tablet - take 1 tablet by ORAL route once daily; 20 tablet. - Medication Reconciliation Form, Thank You Letter, Antibiotic Education, Prescription Opioid Use form. - Follow up: Private Physician; When: Tomorrow; Reason: Recheck today's complaints, Continuance of care. - Notes: see pcp for repeat cbc in 2 days Signatures: Dispatcher [employer] EDMS Angela Allen RN RN Viviane Larios RN RN Ishan Bui MD MD ma2 Neelam Dent RN RN ca1 Corrections: (The following items were deleted from the chart) 13:31 13:25 ED course: patient had good urine output and feels better, HB is 7.1 . ma2 ny2 13:52 13:32 11/18/2019 13:32 Discharged to Home. Impression: Edema, unspecified - Lower ss extremities . Condition is Stable. Prescriptions for Lasix 20 mg Oral Tablet - take 1 tablet by ORAL route once daily; 20 tablet. and Forms are Medication Reconciliation Form, Thank You Letter, Antibiotic Education, Prescription Opioid Use. Follow up: Private Physician; When: Tomorrow; Reason: Recheck today's complaints, Continuance of care. ma2
[2019-11-18 14:04] VITALS: BP 136/75; TEMP 97.1; O2SAT 99
== END 2019-11-18 13:52 | disposition home or self-care (01) ==
LOC: ER 11:26
DX: R60.0 Localized edema (principal); I10 Essential (primary) hypertension
CPT/HCPCS: 85025; 80048; 36415; 80076; 83690; 96374; 99284; J1940

== ENCOUNTER 2019-12-24 10:03 | Emergency (ER) | payer OTHER ==
[2019-12-24] MEDS ORDERED: ACETAMINOPHEN 500 MG TAB ONE (10:18)
[2019-12-24 11:00] LABS: Protime INR 1.76
[2019-12-24] MEDS ORDERED: METHYLPREDNISOLONE 40 MG INJ ONE (11:00)
[2019-12-24] MEDS ORDERED: FAMOTIDINE 20 MG/2 ML VIAL IV ONE (11:01)
[2019-12-24] MEDS ORDERED: NA CHLORIDE 0.9% 250 ML ONE (11:01)
[2019-12-24] MEDS ORDERED: AZITHROMYCIN 500 MG INJ IVPB ONE (11:01)
[2019-12-24] MEDS ORDERED: CEFTRIAXONE/SWI 1gm 1 GM/10 ML SYR ONE (11:01)
[2019-12-24 11:09] LABS: Absolute Lymphocytes (CBC) 1.6 K/uL (0.7-4.9); Basophils % 0.9 % (0-1.3); Hematocrit 24.4 % (39.6-49.0); MPV 8.6 fL (7.6-11.3); RBC Red Blood Cell Count 3.31 M/uL (4.33-5.43)
[2019-12-24 11:16] LABS: ALT/SGPT 25 U/L (12-78); AST/SGOT 45 U/L (15-37); Albumin 1.8 g/dL (3.4-5.0); Alkaline Phosphatase 160 U/L (45-117); BUN Blood Urea Nitrogen 8 mg/dL (7-18); Bicarbonate 22 mmol/L (21-32); Bilirubin Direct 1.2 mg/dL (0-0.2); Bilirubin Total 2.1 mg/dL (0.2-1.0); Glucose Level 213 mg/dL (74-106); Magnesium 1.7 mg/dL (1.8-2.4); NT PRO-BNP 254 pg/mL (<125); Potassium 4.3 mmol/L (3.5-5.1); Protein, Total 6.7 g/dL (6.4-8.2); Sodium Level 135 mmol/L (136-145); Troponin (Emerg Dept Use Only) 0.08 ng/mL (0.0-0.045)
--- OUTSIDE RECORDS SUMMARY | 2019-12-24 11:53 | XMS REPORT | Clinical Summary ---
:1955 Author Organization [facility] Address [address] [place] [address] Care Team Providers Name Role Phone Unavailable [...] 20 yrs) 02/27/2020 Results Not on fileafter 12/23/2018 Insurance Payer Benefit Plan / Subscriber ID Effective Dates Phone Addre ss Type Group [employer] S[employer] xxxxxxxxx 2015-Prese [phone] [id number] [employer] S[employer] [address]CREENED [address] [place] [address] [phone] (Work) Advance Directives Code Status Date Activated Date Inactivated Comments Full Code 06/15/2010 2:59 PM 06/17/2010 2:54 PM Full Code 06/04/2010 6:03 AM 06/05/2010 6:33 PM
--- NOTE | 2019-12-24 11:55 | RAD REPORT ---
EXAM DESCRIPTION: RAD - Chest Single View - 12/24/2019 11:30 am CLINICAL HISTORY: Cough;Dyspnea Chest pain. COMPARISON: Chest Single View dated 10/27/2018; Chest Single View dated 08/04/2018; Chest Single View da lisa 05/23/2018; CHEST SINGLE VIEW dated 05/31/2010 FINDINGS: Portable technique limits examination quality. The lungs are grossly clear. The heart is mildly prominent in size. No displaced fractures. IMPRESSION: No acute intrathoracic process suspected.
--- OUTSIDE RECORDS SUMMARY | 2019-12-24 11:55 | XMS REPORT | Clinical Summary ---
:1955 Author Organization [facility] Address [address] [place] [address] Care Team Providers Name Role Phone Unavailable [...] Discontinued 40 MG tablet AND QPM 0 furosemide (LASIX) Take 2 tablets 60 tablet [...] pending further imaging/testing and official review at B. Psoriasis 12/19/2018 Last Assessment & Plan: Continue follow up with dermatology/rheu matology. 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 He camilo l continue follow up with hepatology. Ascites [...] clinic, mri & b mds appts w/pt. Itinerary sonya d.) 10/08/2019 Telephone Transplant Samira Martínez Follow-up Hepatology Juan J RN 10/07/2019 Orders Only Transplant Samira Martínez Awaiting orga n transplant status; Hepatology R RN Cirrhosis of li tadeo without ascites, [...] hepatic cirrhosis type (HCC) (Primary Dx); Hepatology R RN Screening for e ndocrine, metabolic and immunity disorder; Awaiting organ transplant status 08/26/2019 Abstract Transplant Samira Martínez Hepatology R RN 08/20/2019 Telephone Transplant Veena Swift Error [...] 08/19 clinic & mri ap pt w/pt. Ityulissa y mailed.) 07/12/2019 Documentation Transplant Maricel Barber [...] Irvin Hepatology RN 06/13/2019 Abstract Transplant Chary Irvin, Hepatology RN 06/04/2019 Surgery Jaspal Mckeon R [...] Appointment (LVM. Hepatology E Calling to conf irm 04/30 appts.) 04/12/2019 Telephone Transplant Marta Stein [...] Hepatology RN 03/08/2019 Telephone Transplant Marta Stein Appointment Hepatology E (Scheduled 03/29 clinic & mri ap pt w/pt. Itinerar y mailed.) 03/07/2019 Telephone Transplant Marta Stein Appointment ([facility]. Hepatology E Calling to [facility] end of and clinic due end [...] 01/10/2019 Telephone Transplant Rizwana Murray Follow-up Hepatology F, RN 12/28/2018 Abstract Transplant Law Felicitas Juan J Hepatology after 12/23/2018 Immunizations Name Dates Previously Given Next Due [...] Taken Blood Pressure 144/71 06/04/2019 4:00 PM FISH CUTTING MACHINE OPERATOR Pulse 71 06/04/2019 4:00 PM FISH CUTTING MACHINE OPERATOR Temperature 36.3 C (97.4 F) 06/04/2019 7:49 AM FISH CUTTING MACHINE OPERATOR Respiratory Rate 18 06/04/2019 4:00 PM FISH CUTTING MACHINE OPERATOR Oxygen Saturation 98% 06/04/2019 12:15 PM FISH CUTTING MACHINE OPERATOR Inhaled Oxygen Concentration - - Weight 103 kg (227 lb) 06/04/2019 7:49 AM FISH CUTTING MACHINE OPERATOR Height 167.6 cm (5' 6") 06/04/2019 7:49 AM FISH CUTTING MACHINE OPERATOR Body Mass Index 36.64 06/04/2019 7:49 AM FISH CUTTING MACHINE OPERATOR Plan of Treatment Date Type Specialty Care Team Description 02/18/2020 Follow-Up Transplant Hepatology 02/18/2020 Appointment Radiology 02/18/2020 Appointment Health Maintenance Due Date Last Done Comments PNEUMOCOCCAL VACCINE 2-64 YEARS AT RISK (2 of 3 - 12/23/2018 10/28/2018 PPSV23) MEDICARE ANNUAL WELLNESS (YEAR 2 or FIRST YEAR if no 05/29/2019 IPPE) INFLUENZA VACCINE (#1) 2020 04/11/2018 COLON CANCER SCREENING COLONOSCOPY 06/12/2028 [...] 07/10/2019 12:00 Resu lts for this AM FISH CUTTING MACHINE OPERATOR procedure are i n the results section. COMPREHENSIVE Routine 07/10/2019 12:00 Metabolic syndr ome Results for this METABOLIC PANEL AM FISH CUTTING MACHINE OPERATOR Pre-transplant procedure are in evaluation for the results chronic liver section. disease Cirrhosis of liver without ascites, unspecified hepatic cirrhosis type (HCC) Abnormal liver function PROTHROMBIN TIME/INR Routine 07/10/2019 12:00 Metabolic syndrome Results for this AM FISH CUTTING MACHINE OPERATOR Pre-transplant procedure are in evaluation for the results chronic liver section. disease Cirrhosis of liver without ascites, unspecified hepatic cirrhosis type (HCC) Abnormal liver function CBC W/PLT COUNT & AUTO Routine 07/10/2019 12:00 Metaboli c syndrome Results for this DIFFERENTIAL AM FISH CUTTING MACHINE OPERATOR Pre-transplant procedure are in evaluation for the results chronic liver section. disease Cirrhosis of liver without ascites, unspecified hepatic cirrhosis type (HCC) Abnormal liver function ALPHA FETOPROTEIN Routine 07/10/2019 12:00 Metabolic syn drome Results for this (AFP), TUMOR MARKER AM FISH CUTTING MACHINE OPERATOR Pre-transplant proced ure are in evaluation for the results chronic liver section. disease Cirrhosis of liver without ascites, unspecified hepatic cirrhosis type (HCC) Abnormal liver function REPORT OF PROCEDURE - 06/05/2019 1:52 ENDOSCOPY SCAN PM FISH CUTTING MACHINE OPERATOR CARDIAC CATH REPORT - 06/05/2019 1:52 SCAN PM FISH CUTTING MACHINE OPERATOR VASCULAR DIAGRAM -SCAN 06/05/2019 1:51 PM FISH CUTTING MACHINE OPERATOR STENT / CAROTID MCR 06/04/2019 9:46 Hepatic cirrhos is, - IP PROC ONLY AM FISH CUTTING MACHINE OPERATOR unspecified hepatic cirrhosis type, unspecified whether ascites present (HCC) Case Notes (3)CASE 6TOP R & L CATH / CORONARY 06/04/2019 9:46 AM FISH CUTTING MACHINE OPERATOR Hepatic cirrhosis, unspecified ANGIOS / PCI hepatic cirrhosis type, unspecified whether ascites present (HCC) Case Notes (3)CASE 6TOP CBC W/PLT COUNT & AUTO Routine 06/04/2019 8:38 AM Results for this DIFFERENTIAL FISH CUTTING MACHINE OPERATOR procedure are i n the results section. CBC W/PLT COUNT & AUTO Routine 06/04/2019 8:38 AM Results for this DIFFERENTIAL FISH CUTTING MACHINE OPERATOR procedure are i n the results section. BASIC METABOLIC PANEL Routine 06/04/2019 8:38 AM Results for this (7) FISH CUTTING MACHINE OPERATOR procedure are i n the results section. CBC W/PLT COUNT & AUTO Routine 05/08/2019 1:37 PM Alcoholic Results for this DIFFERENTIAL FISH CUTTING MACHINE OPERATOR cirrhosis of liver procedure are in with ascites (HCC) the resul ts section. ALPHA FETOPROTEIN Routine 05/08/2019 1:37 PM Screening for Re sults for this (AFP), TUMOR MARKER FISH CUTTING MACHINE OPERATOR cancer procedur e are in the results section. PROTHROMBIN TIME/INR Routine 05/08/2019 1:37 PM Alcoholic Results for this FISH CUTTING MACHINE OPERATOR cirrhosis of liver procedure are in with ascites (HCC) the resul ts section. CBC W/PLT COUNT & AUTO Routine 05/08/2019 1:37 PM Alcoholic Results for this DIFFERENTIAL FISH CUTTING MACHINE OPERATOR cirrhosis of liver procedure are in with ascites (HCC) the resul ts section. HEPATIC FUNCTION PANEL Routine 05/08/2019 1:37 PM Alcoholic Results for this FISH CUTTING MACHINE OPERATOR cirrhosis of liver procedure are in with ascites (HCC) the resul ts section. BASIC METABOLIC PANEL Routine 05/08/2019 1:37 PM Alcoholic Results for this (7) FISH CUTTING MACHINE OPERATOR cirrhosis of liver procedure are in with ascites (HCC) the resul ts section. MISCELLANEOUS LAB Routine 05/08/2019 1:37 PM History of alcoh ol ORDER FISH CUTTING MACHINE OPERATOR use CBC W/PLT COUNT & AUTO Routine 02/28/2019 12:47 PM Alcoholic Results for this DIFFERENTIAL CDT cirrhosis of liver procedure are in with ascites (HCC) the resul ts section. ALPHA FETOPROTEIN Routine 02/28/2019 12:47 PM Alcoholic Res ults for this (AFP), TUMOR MARKER CDT cirrhosis of liver pr ocedure are in with ascites (HCC) the resul ts section. PROTHROMBIN TIME/INR Routine 02/28/2019 12:47 PM Alcoholic Results for this CDT cirrhosis of liver procedure are in with ascites (HCC) the resul ts section. CBC W/PLT COUNT & AUTO Routine 02/28/2019 12:47 PM Alcoholic Results for this DIFFERENTIAL CDT cirrhosis of liver procedure are in with ascites (HCC) the resul ts section. HEPATIC FUNCTION PANEL Routine 02/28/2019 12:47 PM Alcoholic Results for this CDT cirrhosis of liver procedure are in with ascites (HCC) the resul ts section. BASIC METABOLIC PANEL Routine 02/28/2019 12:47 PM Alcoholic Results for this (7) CDT cirrhosis of liver procedure are in with ascites (HCC) the resul ts section. after 12/23/2018 Results PLATELET ESTIMATION (10/07/2019 9:28 AM CDT)Only the most recent of2 results within the time period is included. Platelet Estimate DECREASED (A) ADEQUATE [facility] Specimen Narrative Performed At FASTING:YES [facility] FASTING: YES Resulting Agency Comment Performing Organization Information: Site ID: [id number] Name: [facility] Address: [address] [place] [phone] Director: Terrell Romeo Performing Organization Address City/State/Zipcode Phone Number [address] [address] [facility] Alpha fetoprotein (AFP), tumor marker (10/07/2019 9:28 AM CDT)Only the most recent of4 resultswithin the time period is included. Alpha-Fetoprotein 3.2 <6.1 ng/mL [facility] Comment: This test was performed using the Phokkite r chemiluminescent method. Values obtained from different assay methods cannot be used interchangeably. AFP levels, regardless of value, should not be interpreted as absolute evidence of the presence or absence of disease. Specimen Blood Narrative Performed At FASTING:YES [facility] FASTING: YES Resulting Agency Comment Performing Organization Information: Site ID: [id number] Name: [facility] Address: [address] [place] [address] [place] [address] Director: Dr. Terrell faria Performing Organization Address [facility] Cent[facility] Phone Number [facility] [address] [place] [address] [facility] Prothrombin time/INR (10/07/2019 9:28 AM CDT)Only the most recent of4 results within the time period is included. INR 1.2 (H) [facility] Comment: Reference Range 0.9-1.1 Moderate-intensity Warfarin Therapy 2.0-3.0 Higher-intensity Warfarin Therapy 3.0-4.0 PT 12.9 (H) 9.0 - 11.5 sec [facility] Comment: For more information on this test, go to: http://education.adsquare/faq/IWK034 Specimen Blood Narrative Performed At FASTING:YES [facility] FASTING: YES Resulting Agency Comment Performing Organization Information: Site ID: [id number] Name: [facility] Address: [address] [place] [phone] Director: Terrell Romeo Performing Organization Address [facility] Centercode Phone Number [facility] [address] [place] [address] [facility] CBC with platelet count + automated [...] Agency Comment Performing Organization Information: Site ID: [facility] Name: [facility] Address: [address] [place] [phone] Director: Terrell Romeo Performing Organization Address [facility] Phone Number [facility] [address] [place] [address] [facility] Bilirubin, direct (10/07/2019 9:28 AM CDT) Bilirubin, Total 2.4 (H) 0.2 - 1.2 mg/dL [facility] Bilirubin, Direct 0.7 (H) < OR = 0.2 mg/dL [facility] Bilirubin, Indirect 1.7 (H) 0.2 - 1.2 mg/dL (calc) [facility] Specimen Blood Narrative Performed At FASTING:YES [facility] FASTING: YES Resulting Agency Comment Performing Organization Information: Site ID: [facility] Name: [facility] Address: [address] [place] [phone] Director: Terrell Romeo Performing Organization Address [facility] Cent[facility]otn Phone Number [facility] [address] [place] [address] [facility] Comprehensive metabolic panel (10/07/2019 9:28 AM CDT)Only the most recent of2 resultswithin the time period is included. Glucose [...] 13% higher for p eople identified as -[place]. eGFR If NonAfricn Am 103 > OR [...] Performing Organization Information: Site ID: [id number] Name: [facility] Address: [address] [place] [phone] Director: Terrell Romeo Performing Organization Address City/State/Zipcode Phone Number [facility] [address] [place] [address] [facility] EKG-SCANNED (06/05/2019 1:52 PM FISH CUTTING MACHINE OPERATOR) Narrative Performed At This result has an attachment that is no t available. CARDIAC CATH REPORT - SCAN (06/05/2019 1:52 PM FISH CUTTING MACHINE OPERATOR) Narrative Performed At This result has an attachment that is no t available. VASCULAR DIAGRAM -SCAN (06/05/2019 1:51 PM FISH CUTTING MACHINE OPERATOR) Narrative Performed At This result has an attachment that is no t available. CBC with platelet count + automated diff (06/04/2019 8:38 AM FISH CUTTING MACHINE OPERATOR)Only the most recent of3 resultswithin the time period is included. WBC 6.3 3.5 - 10.5 K/L [facility] RBC 3.34 (L) 4.63 - 6.08 M/L [facility] Hemoglobin 9.5 (L) 13.7 - 17.5 GM/DL [facility] Hematocrit 29.4 (L) 40.1 - 51.0 % [facility] MCV 88.0 79.0 - 92.2 fL [facility] MCH 28.4 25.7 - 32.2 pg [facility] MCHC 32.3 32.3 - 36.5 GM/DL [facility] RDW 16.7 (H) 11.6 - 14.4 % [facility] Platelets 69 (L) 150 - 450 K/CU MM [facility] MPV 10.0 9.4 - 12.4 fL [facility] nRBC 0 0 - 0 /100 WBC [facility] % Neutros 49 % [facility] % Lymphs 37 % [facility] % Monos 11 % [facility] % Eos 3 % [facility] % Baso 1 % [facility] # Neutros 3.07 1.78 - 5.38 K/L [facility] # Lymphs 2.31 1.32 - 3.57 K/L [facility] # Monos 0.69 0.30 - 0.82 K/L [facility] # Eos 0.17 0.04 - 0.54 K/L [facility] # Baso 0.06 0.01 - 0.08 K/L [facility] Immature Granulocytes-Relative 1 0 - 1 % C [facility] Specimen Blood Performing Organization Address City/[facility]/Zipcode Phone Number [facility] [address] [place] [address] [place] Basic metabolic panel (06/04/2019 8:38 AM FISH CUTTING MACHINE OPERATOR)Only the most recent of3 results within the time period is included. Sodium 137 136 - 145 meq/L [facility] Potassium 3.7 3.5 - 5.1 meq/L [facility] Chloride 107 98 - 107 meq/L [facility] CO2 25 22 - 29 meq/L [facility] BUN 5 (L) 7 - 21 mg/dL [facility] Creatinine 0.70 0.57 - 1.25 mg/dL [facility] Glucose 94 70 - 105 mg/dL [facility] Calcium 7.9 (L) 8.4 - 10.2 mg/dL [facility] EGFR 114Comment: ESTIMATED GFR IS mL/min/1.73 sq m [facility] NOT ACCURATE CREATININE NE DICAL CENTER CLEARANCE IN PREDICTING GLOMERULAR FILTRATION RATE. ESTIMATED GFR IS NOT APPLICABLE FOR DIALYSIS PATIENTS. Specimen Blood Narrative Performed At Specimen slightly icteric [facility] Performing Organization Address City/[facility]/Zipcode Phone Number [facility] [address] [place] [address] [place] Miscellaneous lab test (05/08/2019 1:37 PM FISH CUTTING MACHINE OPERATOR) Scan Result [facility] Specimen Blood Narrative Performed At This result has an attachment that is no t available. Performing Organization Address City/[facility] Cent[facility]ode Phone Number [facility] [address] [facility] [place] Hepatic function panel (05/08/2019 1:37 PM FISH CUTTING MACHINE OPERATOR)Only the most recent of2 results within the time period is included. Protein, Total 7.0 6.0 - 8.3 gm/dL [facility] Albumin 2.5 (L) 3.5 - 5.0 g/dL [facility] Total Bilirubin 2.8 (H) 0.2 - 1.2 mg/dL [facility] Bilirubin, Direct 1.4 (H) 0.1 - 0.5 mg/dL [facility] Alkaline Phosphatase 258 (H) 40 - 150 U/L [facility] AST 36 (H) 5 - 34 U/L [facility] ALT 21 6 - 55 U/L [facility] Specimen Blood Narrative Performed At Specimen slightly icteric [facility] Performing Organization Address City/State/Zipcode Phone Number [address] [address] CENTER after 12/23/2018 Insurance Payer Benefit Plan / Group Subscriber ID Type Phone A ddress MEDICARE MEDICARE A B xxxxxxxxxxx Medicare Advance Directives For more information, please contact:[address] [phone] Code Status Date Activated Date Inactivated Comments Full Code 06/04/2019 8:04 AM 06/04/2019 9:17 PM This code status was determined by: Patient Full Code 10/27/2018 11:47 PM 10/31/2018 4:20 PM This code status was determined by: Patient
--- NOTE | 2019-12-24 11:56 | EDPHYS ---
Physician Documentation [facility] Name: Tonny Vidal Age: 64 yrs Sex: Male : 1955 Arrival Date: 12/24/2019 Time: 10:05 Bed 18 Private MD: ED Physician Milan Coronado HPI: 12/23 10:44 This 64 yrs old Male presents to ER via EMS with complaints of sob , cough and cale abdominal distention. 10:44 The patient has shortness of breath at rest, with light activity. Onset: The cale symptoms/episode began/occurred 2 day(s) ago. Duration: The symptoms are continuous, and are steadily getting worse. The patient's shortness of breath is aggravated by coughing. Associated signs and symptoms: Pertinent positives: non-productive cough, dizziness. Severity of symptoms: At their worst the symptoms were mild in the emergency department the symptoms are unchanged. The patient or guardian reports cough, described as mild, difficulty breathing, flu symptoms, arthralgias, low-grade fever, myalgias. Severity of symptoms: At their worst the symptoms were mild, in the emergency department the symptoms are unchanged. Modifying factors: The symptoms are alleviated by nothing, the symptoms are aggravated by nothing. Associated signs and symptoms: The patient has no apparent associated signs or symptoms. Historical: - Allergies: 10:13 No Known Allergies; ah - PMHx: 10:13 Cirrhosis; Diabetes - NIDDM; Hypertension; psoriasis; ADD/ADHD; ah - PSHx: 13:41 Hernia repair; ah - Immunization history:: Adult Immunizations up to date. - Social history:: Smoking status: Patient denies any tobacco usage or history of. - Family history:: not pertinent. ROS: 10:44 Constitutional: Negative for fever, chills, and weight loss, Eyes: Negative for injury, cale pain, redness, and discharge, ENT: Negative for injury, pain, and discharge, Neck: Negative for injury, pain, and swelling, Cardiovascular: Negative for chest pain, palpitations, and edema, Abdomen/GI: Negative for abdominal pain, nausea, vomiting, diarrhea, and constipation, Back: Negative for injury and pain, : Negative for injury, bleeding, discharge, and swelling, MS/Extremity: Negative for injury and deformity, Skin: Negative for injury, rash, and discoloration, Neuro: Negative for headache, weakness, numbness, tingling, and seizure, Psych: Negative for depression, anxiety, suicide ideation, homicidal ideation, and hallucinations, Allergy/Immunology: Negative for hives, rash, and allergies, Endocrine: Negative for neck swelling, polydipsia, polyuria, polyphagia, and marked weight changes, Hematologic/Lymphatic: Negative for swollen nodes, abnormal bleeding, and unusual bruising. 10:44 Respiratory: Positive for cough, shortness of breath, at rest. 10:44 MS/extremity: Negative for acute changes. Exam: 10:44 Constitutional: This is a well developed, well nourished patient who is awake, alert, cale and in no acute distress. Head/Face: Normocephalic, atraumatic. Eyes: Pupils equal round and reactive to light, extra-ocular motions intact. Lids and lashes normal. Conjunctiva and sclera are non-icteric and not injected. Cornea within normal limits. Periorbital areas with no swelling, redness, or edema. ENT: Nares patent. No nasal discharge, no septal abnormalities noted. Tympanic membranes are normal and external auditory canals are clear. Oropharynx with no redness, swelling, or masses, exudates, or evidence of obstruction, uvula midline. Mucous membranes moist. Neck: Trachea midline, no thyromegaly or masses palpated, and no cervical lymphadenopathy. Supple, full range of motion without nuchal rigidity, or vertebral point tenderness. No Meningismus. Chest/axilla: Normal chest wall appearance and motion. Nontender with no deformity. No lesions are appreciated. Cardiovascular: Regular rate and rhythm with a normal S1 and S2. No gallops, murmurs, or rubs. Normal PMI, no JVD. No pulse deficits. Back: No spinal tenderness. No costovertebral tenderness. Full range of motion. Male : Normal genitalia with no discharge or lesions. Skin: Warm, dry with normal turgor. Normal color with no rashes, no lesions, and no evidence of cellulitis. 10:44 Respiratory: the patient does not display signs of respiratory distress, Respirations: normal, Breath sounds: bronchial sounds, rhonchi, that are mild, Respiratory rate: 21 11:50 Abdomen/GI: Inspection: distension, that is moderate, ascites, Rectal exam: is cale unremarkable, Prostate: normal, rectal tone normal, Stool: guaiac positive, hemorrhoid(s), are not appreciated, mass, is not appreciated, swelling, is not appreciated, Liver: no appreciated palpable abnormalities, Hernia: not appreciated. 11:55 ECG was reviewed by the Attending Physician. [facility] Vital Signs: 10:13 Weight 111.13 kg; Height 5 ft. 6 in. (167.64 cm); 10:38 BP 142 / 74; Pulse 93; Resp 21; Temp 101.4; Pulse Ox 96% ; ah 11:00 BP 114 / 69; Pulse 87; Resp 22; Pulse Ox 96% ; 13:19 BP 104 / 54; Pulse 71; Resp 18; Temp 97.8; Pulse Ox 97% ; 14:00 BP 113 / 48; Pulse 83; Resp 15; Pulse Ox 99% ; 15:15 BP 119 / 56; Pulse 75; Resp 19; Pulse Ox 98% ; 10:13 Body Mass Index 39.54 (111.13 kg, 167.64 cm) MDM: 10:18 Patient medically screened. [facility] 10:53 Data reviewed: vital signs, nurses notes, lab test result(s), EKG, radiologic studies, [facility] plain films. 12/23 10:39 Order name: Basic Metabolic Panel [facility] 12/23 10:39 Order name: CBC with Diff [facility] 12/23 10:39 Order name: LFT's; Complete Time: 11:25 [facility] 12/23 10:39 Order name: Magnesium; Complete Time: 11:25 [facility] 12/23 10:39 Order name: NT PRO-BNP; Complete Time: 11:25 [facility] 12/23 10:39 Order name: PT-INR; Complete Time: 11:25 [facility] 12/23 10:39 Order name: Troponin (emerg Dept Use Only); Complete Time: 11:25 [facility] 12/23 10:39 Order name: Blood Culture Adult (2) [facility] 12/23 10:39 Order name: Influenza Screen (a \T\ B); Complete Time: 12:18 [facility] 12/23 10:39 Order name: AMMONIA; Complete Time: 11:45 [facility] 12/23 10:39 Order name: Lactate; Complete Time: 11:25 [facility] 12/23 10:39 Order name: Procalcitonin; Complete Time: 11:25 [facility] 12/23 10:40 Order name: Basic Metabolic Panel; Complete Time: 11:25 [facility] 12/23 10:53 Order name: D-Dimer; Complete Time: 11:25 [facility] 12/23 10:39 Order name: XRAY Chest (1 view); Complete Time: 11:58 [facility] 12/23 10:39 Order name: EKG; Complete Time: 10:40 [facility] 12/23 11:25 Order name: Type And Screen [facility] 12/23 11:47 Order name: CT Chest For PE Angio [facility] 12/23 11:47 Order name: CT Abd/Pelvis - IV Contrast Only [facility] 12/23 13:49 Order name: CBC Smear Scan [facility] 12/23 14:06 Order name: ABO/RH no charge [facility] 12/23 14:11 Order name: Glucose, Ancillary Testing [facility] 12/23 14:24 Order name: Lactate Sepsis 2 HR Follow-up [facility] 12/23 10:39 Order name: Cardiac monitoring; Complete Time: 11:38 [facility] 12/23 10:39 Order name: EKG - Nurse/Tech; Complete Time: 11:38 [facility] 12/23 10:39 Order name: IV Saline Lock; Complete Time: 11:39 [facility] 12/23 10:39 Order name: Labs collected and sent; Complete Time: 11:39 [facility] 12/23 10:39 Order name: O2 Per Protocol; Complete Time: 11:39 [facility] 12/23 10:39 Order name: O2 Sat Monitoring; Complete Time: 11:39 [facility] 12/23 11:26 Order name: IV Saline Lock - Large Bore; Complete Time: 11:37 [facility] EC:55 Rate is 86 beats/min. Rhythm is regular. QRS [place] is Normal. NV interval is normal. QRS cale interval is normal. QT interval is normal. No Q waves. T waves are Normal. No ST changes noted. Clinical impression: NSR w/ Non-specific ST/T Changes and No evidence of ischemia. Interpreted by me. Reviewed by me. Administered Medications: 10:45 Drug: Tylenol 650 mg Route: PO; 14:11 Follow up: Response: No adverse reaction 11:12 Drug: Pepcid 20 mg Route: IVP; Site: right antecubital; ah 14:11 Follow up: Response: No adverse reaction 11:12 Drug: SOLU-Medrol 80 mg Route: IVP; Site: right antecubital; ah 14:11 Follow up: Response: No adverse reaction 11:15 Drug: Rocephin 1 grams Route: IV; Rate: per protocol; Site: right antecubital; 14:12 Follow up: Response: No adverse reaction; IV Status: Completed infusion 11:15 Drug: Zithromax 500 mg Route: IVPB; Infused Over: 1 hrs; Site: right antecubital; 14:11 Follow up: Response: No adverse reaction; IV Status: Completed infusion 11:50 Drug: ProTONIX 40 mg Route: IVP; Site: left antecubital; 14:11 Follow up: Response: No adverse reaction 11:50 Drug: ProTONIX 40 mg Route: IVP; Site: left antecubital; 14:11 Follow up: Response: No adverse reaction Disposition: 12/24/19 11:55 Transfer ordered to [facility]. Diagnosis are Gastrointestinal hemorrhage, unspecified, Unspecified cirrhosis of liver, Anemia, unspecified, SARS-associated coronavirus as the cause of diseases classified elsewhere - covid 19 positive, Fever, unspecified, Acute upper respiratory infection, unspecified, Hypomagnesemia. - Reason for transfer: Higher level of care. - Accepting physician is to [facility]. - Condition is Fair. - Problem is new. - Symptoms have improved. Signatures: Dispatcher [employer] Milan Beard MD MD cha Harris, Amy RN RN Corrections: (The following items were deleted from the chart) 15:39 11:55 12/24/2019 11:55 Transfer ordered to [facility]. Diagnosis is Gastrointestinal hemorrhage, unspecified; Unspecified cirrhosis of liver; Anemia, unspecified; SARS-associated coronavirus as the cause of diseases classified elsewhere - covid 19 positive; Fever, unspecified; Acute upper respiratory infection, unspecified; Hypomagnesemia. Reason for transfer: Higher level of care. Accepting physician is to [facility]. Condition is Fair. Problem is new. Symptoms have improved. cale
--- NOTE | 2019-12-24 11:56 | ER ---
Nurse's Notes [facility] Name: Tonny Vidal Age: 64 yrs Sex: Male : 1955 Arrival Date: 12/24/2019 Time: 10:05 Bed 18 Private MD: Diagnosis: Gastrointestinal hemorrhage, unspecified;Unspecified cirrhosis of liver;Anemia, unspecified;SARS-associated coronavirus as the cause of diseases classified elsewhere-covid 19 positive;Fever, unspecified;Acute upper respiratory infection, unspecified;Hypomagnesemia Presentation: 12/23 10:10 Chief complaint: Patient states: i have a cough, positive for covid 1 week ago. vitals ah per EMS 150/74, 98, 99% RA, temp 102. Coronavirus screen: Prior COVID test Pt positive. Ebola Screen: No symptoms or risks identified at this time. Risk Assessment: Do you want to hurt yourself or someone else? Patient reports no desire to harm self or others. Onset of symptoms is unknown. 10:10 Method Of Arrival: EMS: [facility] 10:10 Acuity: FAIZA 3 14:15 Initial Sepsis Screen: Does the patient meet any 2 criteria? No. Patient's initial sepsis screen is negative. Does the patient have a suspected source of infection? No. Patient's initial sepsis screen is negative. Triage Assessment: 14:16 Pain: Denies pain. Historical: - Allergies: 10:13 No Known Allergies; - PMHx: 10:13 Cirrhosis; Diabetes - NIDDM; Hypertension; psoriasis; ADD/ADHD; - PSHx: 13:41 Hernia repair; - Immunization history:: Adult Immunizations up to date. - Social history:: Smoking status: Patient denies any tobacco usage or history of. - Family history:: not pertinent. Screenin:13 Abuse screen: Denies threats or abuse. Nutritional screening: No deficits noted. Tuberculosis screening: No symptoms or risk factors identified. Fall Risk None identified. Assessment: 10:14 General: Appears in no apparent distress. Behavior is calm, cooperative, appropriate ah for age. General: Reports fever for. General: Appears unkempt. Neuro: Level of Consciousness is awake, alert, obeys commands, Oriented to person, place, time, situation, Appropriate for age. Respiratory: Reports cough that is non-productive, Airway is patent Respiratory effort is even, unlabored. Derm: Skin is intact, Skin is dry. 11:15 Reassessment: Patient and/or family updated on plan of care and expected duration. Pain ah level reassessed. Patient is alert, oriented x 3, equal unlabored respirations, skin warm/dry/pink. No needs voiced. 11:50 Reassessment: 2nd IV started and blood band placed. Pt tolerated well. 13:41 Cardiovascular: Denies chest pain, Capillary refill < 3 seconds Patient's skin is warm ah and dry. Rhythm is regular. GI: Abdomen is distended, noted to have ascites, Patient currently denies nausea, vomiting. 13:42 Reassessment: Attempted to call report to [facility], was asked to call back in 15 mins. 14:00 Reassessment: Lactate re-drawn at this time. Pt tolerated well. 14:25 Reassessment: Report called to DIANE Melissa at [facility]. 15:30 Reassessment: Report given to silvia Callowayedic. Pt leaving for transfer. Vital Signs: 10:13 Weight 111.13 kg; Height 5 ft. 6 in. (167.64 cm); 10:38 BP 142 / 74; Pulse 93; Resp 21; Temp 101.4; Pulse Ox 96% ; ah 11:00 BP 114 / 69; Pulse 87; Resp 22; Pulse Ox 96% ; ah 13:19 BP 104 / 54; Pulse 71; Resp 18; Temp 97.8; Pulse Ox 97% ; ah 14:00 BP 113 / 48; Pulse 83; Resp 15; Pulse Ox 99% ; ah 15:15 BP 119 / 56; Pulse 75; Resp 19; Pulse Ox 98% ; ah 10:13 Body Mass Index 39.54 (111.13 kg, 167.64 cm) ED Course: 10:05 Patient arrived in ED. 10:10 Gisel Dewey, RN is Primary Nurse. 10:12 Triage completed. 10:14 Patient has correct armband on for positive identification. Placed in gown. Bed in low ah position. Call light in reach. Side rails up X 1. conveyor monitor on. Pulse ox on. NIBP on. 10:18 Milan Coronado MD is Attending Physician. [facility] 11:00 Initial lab(s) drawn, by me, sent to lab. First set of blood cultures drawn EKG done, ah Flu and/or RSV swab sent to lab. Inserted saline lock: 20 gauge in right antecubital area, using aseptic technique. 11:19 Notified ED physician of a critical lab result(s). [id number], hemoglobin-[id number]. ss 11:30 XRAY Chest (1 view) In Process Unspecified. EDMS 11:50 Initial lab(s) drawn, by me, sent to lab. Inserted saline lock: 20 gauge in left ah antecubital area, using aseptic technique. 12:23 CT Chest For PE Angio In Process Unspecified. EDMS 12:24 CT Abd/Pelvis - IV Contrast Only In Process Unspecified. EDMS 15:33 No provider procedures requiring assistance completed. Patient transferred, IV remains ah in place. 15:34 Patient notified of wait time. Administered Medications: 10:45 Drug: Tylenol 650 mg Route: PO; 14:11 Follow up: Response: No adverse reaction 11:12 Drug: Pepcid 20 mg Route: IVP; Site: right antecubital; 14:11 Follow up: Response: No adverse reaction 11:12 Drug: SOLU-Medrol 80 mg Route: IVP; Site: right antecubital; 14:11 Follow up: Response: No adverse reaction 11:15 Drug: Rocephin 1 grams Route: IV; Rate: per protocol; Site: right antecubital; 14:12 Follow up: Response: No adverse reaction; IV Status: Completed infusion 11:15 Drug: Zithromax 500 mg Route: IVPB; Infused Over: 1 hrs; Site: right antecubital; 14:11 Follow up: Response: No adverse reaction; IV Status: Completed infusion 11:50 Drug: ProTONIX 40 mg Route: IVP; Site: left antecubital; 14:11 Follow up: Response: No adverse reaction 11:50 Drug: ProTONIX 40 mg Route: IVP; Site: left antecubital; 14:11 Follow up: Response: No adverse reaction Outcome: 11:55 ER care complete, transfer ordered by . [facility] 15:33 Transferred by ground EMS to [facility], Transfer form completed. 15:33 Condition: good 15:33 Instructed on the need for transfer. 15:39 Patient left the ED. Signatures: Dispatcher [employer] Milan Beard MD MD cha Smirch, Shelby, DIANE RN Gisel Voss RN RN
[2019-12-24] MEDS ORDERED: PANTOPRAZOLE 40 MG INJ ONE (11:58)
--- OUTSIDE RECORDS SUMMARY | 2019-12-24 12:00 | XMS REPORT | Continuity of Care Document ---
:1955 Author Organization [facility] t Address [address] [place] [address] Care Team Providers Name Role Phone Mauricio CONTRERAS R Attending Clinician Unavailable Rosalia Steni Attending Clinician Unavailable Harika GOMEZ Attending Clinician [...] Clinician Unavailable Yumiko Rod MD Attending Clinician Trevor CONTRERAS F Attending Clinician Unavailable Juan J Venegas Attending Clinician Unavailable BUBBA LI Attending Clinician Unavailable MONAE AN [...] Active Last [facility]- Assesspooja Pedraza - evaluation evaluation 00:00: t & Plan: Medical for for He is an Center chronic chronic acceptabl liver liver e disease disease candidate for liver transplan t pending further imaging/t esting and official review at B. Psoriasis Psoriasis Disease Active Last [facility]- Ass[facility]men [facility] - 00:00: t & Plan: Medical 00 [...] Medical 00 Center Alcoholic Alcoholic Disease Active Last [facility] cirrhosis cirrhosis 5-08 Assesspooja [facility] ukes - of liver of liver 00:00: t & Plan: Med ical with with 00 Cirrhosis Center ascites ascites secondary to ETOH/AGUILAR . He will continue follow up with hepatolog y. Ascites Ascites Disease Active [facility] alcoholic 00:00: t & Plan: M edical cirrhosis cirrhosis [address] and leg swelling is controlle d with Lasix 40 mg and Aldactone 100 mg a day; restrict salt to 2 gm per day. Low carb but high protein diet. Screening Screening Disease Active [facility] for cancer [facility] t & Plan: Medical 00 Cirrhosis Center , regardles s of etiology, is a risk factor for hepatocel lular carcinoma (HCC), with an annual incidence of 1.5-7%. We recommend surveilla nce for HCC with abdominal imaging and alphafeto protein every 6 months. MRI 07/17 did not show any liver lesion. 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 Thrombocyt Thrombocyt Disease Active H arris openia openia Health History of Past Illness Condition Condition Condition Status Onset Resolution Last Treating Co mments Source Name Details Category Date Date Treatment Clinician Date Portal Portal Disease Resolve 2019-03-18 2019-03-18 [facility] hypertensi hypertensi d 10-03 00:00:00 19:07:40 [facility] 00:00: Medical 00 [place] Encephalop Encephalop Disease Resolve 2019-03-18 2019-03-18 [facility] athy athy d 10-03 00:00:00 19:07:52 [facility] - 00:[facility]: Medical 00 [place] Allergies, Adverse Reactions, Alerts This patient has no known allergies or adverse reactions. Family History Family Member Diagnosis Comments Start Date Stop Date Source Natural brother Diabetes [facility] Natural brother Hypertension [facility] Natural father Diabetes [facility] Natural mother Liver disease [facility] Natural sister Cancer [facility] Social History Social Habit Start Date Stop Date Quantity Comments Source History [facility] Alcohol Std Drinks Medica l Center History [facility] Alcohol Binge Medical [address] [facility] Sex Assigned At [facility] History SDOH 2018-10-03 2018-10-03 1 SYED Tineo - Alcohol Frequency 00:00:00 00:00:00 [facility] History of tobacco 2017-10-03 Current smoker NELY Tineo - use 00:00:00 [facility] Cigarettes smoked 2015-12-15 2015-12-15 [facility] current (pack per 00:00:00 00:00:00 day) - Reported Cigarette 2015-12-15 2015-12-15 [facility] pack-years 00:00:00 00:00:00 Alcohol intake 2015-12-15 2015-12-15 [facility] 00:00:00 00:00:00 of alcohol (finding) Alcohol Comment 2010-06-15 2010-06-15 6 packs/day-last [facility] 00:00:00 00:00:00 time yesterday Smoking Status Start Date Stop Date Source Former smoker 2019-06-05 00:00:00 2019-06-05 00:00:[address] [facility] - [facility] Current every day 2015-12-15 00:00:00 [facility] smoker Medications Ordered Filled Start Stop Current Ordering Indication Dosage Frequency Signature Comments Components Source Medication Medication Date Date Medication? Clinician (SIG) Name Name omeprazole Yes 40mg QD Take [address] (PRILOSEC) 1-07 by mouth [facility] - 40 MG 08:16: daily. Medical capsule 30 [place] thiamine Yes 100mg QD Take [address] (VITAMIN 1-07 mg by [facility] - B-1) 100 MG 08:16: mouth Medic al tablet 30 daily. [place] furosemide Yes 80mg Q.5D Take 2 [facility] [...] D [facility] - tablet 00:00: Medical 00 [place] ALPRAZolam Yes TK [address] (XANAX) 1 6-18 BID PRF [facility] - MG tablet 00:00: ANXIETY Medic al 00 [place] folic acid 0 Yes TK [address] (FOLVITE) 1 6-13 QD [facility] - MG tablet 00:00: Medical 00 [place] spironolact Yes 100mg Q.5D Take [address] one 6-02 mg by [facility] - (ALDACTONE) 10:08: mouth 2 Med ical 100 MG 46 (two) Center tablet times daily. lactulose Yes TK [address] (CHRONULAC) 5-04 PO TID [facility] - 10 gram/15 00:00: Medical mL solution 00 [place] furosemide 0 2020- No TK [address] [facility] (LASIX) 40 4-22 01-07 QAM AND [facility] - MG tablet 00:00: 00:00 Q Medical 00 :00 [place] triamcinolo 0 Yes 1{appli Q.5D Apply [address] ne 3-10 cation} applicatio [facility] - (KENALOG) 00:00: n Medical 0.1 % 00 topically Center topical 2 (two) cream times daily. metFORMIN [...] daily . Medi jeevan 40 MG 00 [place] tablet hydrOXYzine 2017-05 Yes 50mg Take [address] (ATARAX) 50 1-14 by mouth Luke s - MG tablet 00:00: as needed Med ical 00 . [place] traMADol Yes Recurrent 50mg Take 1 [facility] (ULTRAM) 50 7-19 umbilical tablet by Health mg tablet 00:00: hernia mouth 00 every 6 hours as needed for Pain. Immunizations Ordered Immunization Filled Immunization Date Status Commen ts Source Name Name Pneumococcal 2018-10-28 Completed [facility] - Conjugate (Prevnar) 00:00:00 Medic [facility] 13-Valent Vital Signs Vital Name Observation Time Observation Value Comments Source Systolic blood 2019-06-04 16:00:00 144 mm[Hg] [facility] Diastolic blood 2019-06-04 16:00:00 71 mm[Hg] [facility] Heart rate 2019-06-04 16:00:00 71 /min [facility] Respiratory rate 2019-06-04 16:00:00 18 /min [facility] Oxygen saturation in 2019-06-04 12:15:00 98 /min [facility] Arterial blood by Medical Ce nter Pulse oximetry Body temperature 2019-06-04 07:49:00 36.33 Corrina [facility] Body height 2019-06-04 07:49:00 167.6 cm [facility] Body weight Measured 2019-06-04 07:49:00 102.967 kg [facility] BMI 2019-06-04 07:49:00 36.64 kg/m2 [facility] Procedures Procedure Date / Time Performed Performing Clinician Sour e COMPREHENSIVE METABOLIC 2019-10-07 09:28:00 [facility] W/[facility]T [facility] & AUTO 2019-10-07 09:28:00 Ankur Dan [facility] BILIRUBIN, DIRECT 2019-10-07 09:28:00 Ankur Dan [facility] ALPHA FETOPROTEIN (AFP), 2019-10-07 09:28:00 Ankur Dan [facility] TUMOR [facility] PROTHROMBIN TIME/INR 2019-10-07 09:28:00 [facility] PLATELET ESTIMATION 2019-10-07 09:28:00 [facility] ALPHA FETOPROTEIN (AFP), 2019-07-10 00:00:00 [facility]ie [facility] TUMOR [facility] CBC W/PLT COUNT & AUTO 2019-07-10 00:00:00 [facility] PROTHROMBIN TIME/INR 2019-07-10 00:00[facility] COMPREHENSIVE METABOLIC 2019-07-10 00:00:00 [facility] PLATELET ESTIMATION 2019-07-10 00:00:00 [facility] REPORT OF PROCEDURE - 2019-06-05 13:52:03 Provider, [facility] ENDOSCOPY SCAN [facility] CARDIAC CATH REPORT - 2019-06-05 13:52:01 Provider, [facility] SCAN [facility] VASCULAR DIAGRAM -SCAN 2019-06-05 13:51:59 Provider, [facility] R & L CATH / CORONARY 2019-06-04 09:46:00 Jaspal An [facility] - ANGIOS / PCI [facility] STENT / CAROTID MCR - 2019-06-04 09:46:00 Jaspal An [facility] - IP PROC ONLY Medical Center BASIC METABOLIC PANEL (7) 2019-06-04 08:38:00 Jaspal An [facility] CBC W/PLT COUNT & AUTO 2019-06-04 08:38:[address] [facility] MISCELLANEOUS LAB ORDER 2019-05-08 13:37:00 Ankur Dan [facility] BASIC METABOLIC PANEL (7) 2019-05-08 13:37:00 Ankur Dan [facility] HEPATIC FUNCTION PANEL 2019-05-08 13:37:00 Ankur Dan [facility] PROTHROMBIN TIME/INR 2019-05-08 13:37:00 Ankur Dan [facility] ALPHA FETOPROTEIN (AFP), 2019-05-08 13:37:00 Ankur Dan [facility] CBC W/PLT COUNT & AUTO 2019-05-08 13:37:00 Ankur Dan [facility] BASIC METABOLIC PANEL (7) 2019-02-28 12:47:00 Ankur Dan [facility] HEPATIC FUNCTION PANEL 2019-02-28 12:47:00 Ankur Dan [facility] PROTHROMBIN TIME/INR 2019-02-28 12:47:00 Ankur Dan [facility] ALPHA FETOPROTEIN (AFP), 2019-02-28 12:47:00 Ankur Dan [facility] CBC W/PLT COUNT & AUTO 2019-02-28 12:47:00 Ankur Dan [facility] Plan of Care Planned Activity Planned Date Details Comments Source Future Scheduled 2028-06-[address] [facility] - Test 00:00:00 malignant neoplasm of [facility]ica [facility] colon (procedure) [code = 039422923] Future Scheduled 2020-02-27 IMM Influenza Seasonal H [facility] Test 00:00:00 Feb to July (>/= 19 yrs) [code = IMM Influenza Seasonal Feb to July (>/= 19 yrs)] Future Scheduled 2020-01-28 INFLUENZA VACCINE (#1) [facility] Test 00:00:00 [code = INFLUENZA Medical Ce nter VACCINE (#1)] Future Scheduled 2019-05-[address] [facility] - Test 00:00:00 WELLNESS [...] of 3 - PPSV23)] Future Scheduled 2006 Screening for [facility] Test 00:00:00 malignant neoplasm of colon (procedure) [code = 060915622] Encounters Start End Encounter Admission Attending Care Care Encounter Source Date/Time Date/Time Type Type Clinicians Facility Department ID 2019-09-11 2019-09-11 Telephone Harika [facility] [id number] 00:00:00 00:00:00 Ilan Modi [id number] [place] 4.2.7.2.686 Professio [phone] [address] 2019-02-08 2019-02-08 Orders Doctor LICONA 1.2.840.114 [id number] 00:00:00 00:00:00 Only UnassignedTOY [id number] [place] [facility] 4.2.7.2.686 [id number] 009 2019-01-31 2019-01-31 Orders Doctor LICONA 1.2.840.114 [id number] 00:00:00 00:00:00 Only UnassignedTOY [id number] [place] [facility] 4.2.7.2.686 [id number] 009 2019-01-23 2019-01-23 Telephone Jase Rod [facility] [id number] 00:00:00 00:00:00 Yumiko Modi [id number] [place] 4.2.7.2.686 Professio [phone] [address] 2019-01-21 2019-01-21 Office [place] Jase [facility] [id number] 15:52:08 16:26:09 Visit Yumiko Modi [id number] [place] 4.2.7.2.686 John [id number] critical [facility] hospital [facility] 2019-01-17 2019-01-17 Orders Doctor MONAE 1.2.840.114 [id number] 00:00:00 00:00:00 Only Unassigned, TOY [id number] [place] [address]686 [id number] 009 2019-01-02 2019-01-02 Orders Doctor MONAE Lulu.2.840.114 [id number] 00:00:00 00:00:00 Only Unassigned, TOY 350.1.13.10 [place] [address]686 [id number] 009 2018-12-28 2018-12-28 Orders Doctor MONAE 1.2.840.114 [id number] 00:00:00 00:00:00 Only Unassigned, TOY 350.1.13.10 [place] [address]686 [id number] 009 2016-10-19 2016-10-19 Orders Doctor MONAE Lulu.2.840.114 [id number] 00:00:00 00:00:00 Only Unassigned, TOY 350.1.13.10 [place] [address]686 [id number] 009 Results Test Description Test Time Test [...] > OR = 60 (test code = 5123453) mL/min/1.73m2 eGFR If Africn Am (test 119 > OR = 60 code = 5411363) mL/min/1.73m2 BUN/Creatinine Ratio 12 6- 22 (calc) (test code = 9740539) Sodium (test code = 141 mmol/L 135-841 7923416) Potassium, Serum (test 3.8 mmol/L 3.5-5.3 code = 2306579) Chloride (test code = 107 mmol/L 98-442 9742705) Carbon Dioxide, Total 26 mmol/L 20-32 (test code = 6863024) Calcium, Serum (test 8.8 mg/dL 8.6-10.3 code = 3613592) Protein, Total, Serum 6.7 g/dL 6.1-8.1 (test code = 20101003) Albumin (test code = 2.8 g/dL 3.6-5.1 L ) GLOBULIN (QUEST) (test 3.9 1.9- 3.7 g/dL H code = 7394402) (calc) Albumin Globulin Ratio 0.7 1.0- 2.5 [...] Performing Organization Information: Site ID: RGA [facility]: [facility] Address: [address] [place] [phone] Director: Terrell Romeo Lab Interpretation Abnormal (test code = 10434-6) [facility] [id number] 10:17:00 Test Item Value Reference Range Interpretation Comments Bilirubin, Total (test 2.4 mg/dL 0.2-1.2 H code = 20101005) Bilirubin, Direct (test 0.7 mg/dL < OR = 0.2 H code = 1235097) Bilirubin, Indirect 1.7 0.2- 1.2 mg/dL H (test code = ) (calc) MADALYN (test code = MADALYN) FASTING:YESFASTING: YES RAC (test code = RAC) Performing Organization Information: Site ID: ABEL Name: [facility] Address: [address] [place] [phone] Director: Terrell Romeo Lab Interpretation Abnormal (test code = 64707-1) [facility] count + automated [id number] 10:17:00 Test Item Value Reference Range Interpretation [...] Neutros (test code = 3010 1,500 - 7,837 2667121) cells/uL # Lymphs (test code = 1937 [...] = RAC) Performing Organization Information: Site ID: A Name: [facility] Address: [address] [place] [phone] Director: Terrell Romeo Lab Interpretation Abnormal (test code = 51284-0) [facility] Hospital[facility] time/[id number] 10:17:00 Test Item Value Reference Range Interpretation Comments INR (test code = 1.2 H Reference R mela ) 0.9-1.1Moderate -i ntensity Warfar in Therapy 2.0-3.0Higher-i nt ensity Warfarin Therapy 3.0-4 .0 PT (test code = 12.9 9.0- 11.5 sec H For more ) information on this test, go to:[email or web address] 04 MADALYN (test code = FASTING:YESFASTING MADALYN) : YES RAC (test code = Performing RAC) Organization Information: Site ID: [facility]: [facility] Address: [address] [place] [phone] Director: Terrell Romeo Lab Interpretation Abnormal (test code = 55988-2) [facility] (AFP), tumor [id number] 10:17:00 Test Item Value Reference Interpretation Comments [...] Organization RAC) Information: Site ID: IG [facility] Address: [address] [place] [address] Director: Dr. Terrell Romeo [facility] Hospital[facility]ATELET [id number] 10:17:00 Test Item Value Reference Range Interpretation Comments Platelet Estimate (test DECREASED ADEQUATE A code = 84884-7) MADALYN (test code = MADALYN) FASTING:YESFASTING: YES RAC (test code = RAC) Performing Organization Information: Site ID: ABEL [facility]: [facility] Address: [address] [place] [phone] Director: Terrell Romeo Lab Interpretation (test Abnormal code = 82813-2) [facility] metabolic [id number] 09:29:00 Test Item Value Reference Range Interpretation Comments Sodium (test code = 137 meq/L 179-802 4349-2) Potassium (test code = 3.7 meq/L 3.5-5.1 2823-3) Chloride (test code = 107 meq/L 98-107 2075-0) CO2 (test code = 25 meq/L 22-29 2028-9) BUN (test code = 5 mg/dL 7-21 L 3094-0) Creatinine (test code 0.70 mg/dL 0.57-1.25 = 2160-0) Glucose (test code = 94 mg/dL 70-105 2345-7) Calcium (test code = 7.9 mg/dL 8.4-10.2 L 22398-0) EGFR (test code = 114 mL/min/1.73 sq m [place] [address]-0) NOT ACCURATE CREATININE CLEARANCE IN PREDICTING GLOMERULAR FILTRATION RATE . ESTIMATED GFR I S NOT APPLICABLE FOR DIALYSIS PATIENTS. MADALYN (test code = MADALYN) Specimen slightly icteric Lab Interpretation Abnormal (test code = 60634-7) [facility] METABOLIC [id number] 09:29:00 Test Item Value Reference Range Interpretation [...] (test code = 697) EGFR (BEAKER) (test 114 mL/min/1.73 ESTIM ATED GFR IS code = 1092) sq m NOT ACCURATE CREATININE CLEARANCE IN PREDICTING GLOMERULAR FILTRATION RATE . ESTIMATED GFR I S NOT APPLICABLE FOR DIALYSIS PATIEN TS. Specimen slightly ictericCBC with platelet count + automated [id number] 08:54:00 Test Item Value Reference Range Interpretation [...] K/CU MM L MPV (test code = 51169-6) 10.0 fL 9.4-12.4 nRBC (test code = [...] 2801) Lab Interpretation (test code = Abnormal 63577-8) [facility] W/PLT COUNT & AUTO [id number] 08:54:00 Test Item Value Reference Range Interpretation [...] (BEAKER) (test code = 2801) Miscellaneous lab [id number] 07:03:00Scan ResultQUEST NON-INTERFACED LABCHI [facility]AT[facility]IS C [id number] 12:25:00 Test Item Value Reference Range Interpretation Comments HEPATITIS C ANTIBODY (BEAKER) (test Reactive Nonreactive A code = 367) ALPHA FETOPROTEIN (AFP), TUMOR [id number] 15:45:00 Test Item Value Reference Range Interpretation Comments ALPHA-FETOPROTEIN (BEAKER) (test 2.7 ng/mL <10.0 code = 1094) BASIC METABOLIC [id number] 15:36:00 Test Item Value Reference Range Interpretation [...] DIALYSIS PATIEN TS. Specimen slightly ictericHepatic function [id number] 15:35:00 Test Item Value Reference Range Interpretation Comments Protein, Total (test code 7.0 6.0- 8.3 gm/dL = 2885-2) Albumin (test code = 2.5 g/dL 3.5-5 L 63148-9) Total Bilirubin (test code 2.8 mg/dL 0.2-1.2 H = 1975-2) Bilirubin, Direct (test 1.4 mg/dL 0.1-0.5 H code = 1968-7) Alkaline Phosphatase (test 258 U/L 40-150 H code = 6768-6) AST (test code = 1920-8) 36 U/L 5-34 H ALT (test code = 1742-6) 21 U/L 6-55 MADALYN (test code = MADALYN) Specimen slightly icteric Lab Interpretation (test Abnormal code = 83453-7) [facility] [id number] 15:35:00 Test Item Value Reference Range Interpretation [...] 21 U/L 6-55 347) Specimen slightly ictericPROTHROMBIN [id number] 15:00:00 Test Item Value Reference Range Interpretation [...] mechanical heart valves.CBC W/PLT COUNT & AUTO [id number] 14:53:00 Test Item Value Reference Range Interpretation [...] code = 2801) ALPHA FETOPROTEIN (AFP), TUMOR [id number] 14:10:00 Test Item Value Reference Range Interpretation Comments ALPHA-FETOPROTEIN (BEAKER) (test 2.7 ng/mL <10.0 code = 1094) BASIC METABOLIC [id number] 13:52:00 Test Item Value Reference Range Interpretation [...] DIALYSIS PATIEN TS. Specimen slightly ictericHEPATIC FUNCTION [id number] 13:52:00 Test Item Value Reference Range Interpretation [...] 24 U/L 6-55 347) Specimen slightly ictericPROTHROMBIN [id number] 13:49:00 Test Item Value Reference Range Interpretation [...] mechanical heart valves.CBC W/PLT COUNT & AUTO [id number] 13:35:00 Test Item Value Reference Range Interpretation [...] 0-1 PERCENT (BEAKER) (test code = 2801) [id number] 14:59:00 Test Item Value Reference Range Interpretation Comments T4 TOTAL (BEAKER) (test code = 895) 5.7 ug/dL 4.9-11.7 [id number] 13:20:00 Test Item Value Reference Range Interpretation Comments T3 TOTAL (BEAKER) (test code = 656) 113 ng/dL 48-159 CYTOMEGALOVIRUS ANTIBODY, [id number] 11:11:00 Test Item Value Reference Range Interpretation Comments CYTOMEGALOVIRUS, IGG (BEAKER) Positive Negative, Equivocal A (test code = 3429) CMV IgG Result Interpretation: </= 0.8 Al Negative 0.9-1.0 Al Equivocal >/=1.1 Al PositiveCYTOMEGALOVIRUS ANTIBODY, [id number] 11:11:00 Test Item Value Reference Range Interpretation Comments CYTOMEGALOVIRUS IGM ANTIBODY Negative Negative, Equivocal (BEAKER) (test code = 3437) CMV IgM Result Interpretation: </= 0.8 Al Negative 0.9-1.0 Al Equivocal >/= 1.1 Al PositiveEBV ANTIBODY, [id number] 11:08:00 Test Item Value Reference Range Interpretation [...] Equivocal >/= 1.1 Al PositiveVARICELLA ZOSTER ANTIBODY, [id number] 11:08:00 Test Item Value Reference Range Interpretation Comments VARICELLA ZOSTER IGG (AL) (BEAKER) > (test code = 3197) VARICELLA ZOSTER RESULT INTERPRETATIONS: <=0.8 Al Nonreactive: Presumed non-immune to VZV 0.9-1.0 Al Equivocal >=1.1 Al Reactive: Presumed immune to [id number] 13:11:00 Test Item Value Reference Range Interpretation Comments ALPHA-1 ANTITRYPSIN (BEAKER) 155.30 mg/dL 90.00-200.00 (test code = 502) HEMOGLOBIN [id number] 13:08:00 Test Item Value Reference Range Interpretation Comments HEMOGLOBIN A1C (BEAKER) (test code = 6.4 % 4.3-6.1 H 368) HEPATITIS A ANTIBODY, [id number] 12:51:00 Test Item Value Reference Range Interpretation Comments HEPATITIS A IGG ANTIBODY (BEAKER) Reactive Nonreactive A (test code = 2797) HEPATITIS C [id number] 12:51:00 Test Item Value Reference Range Interpretation Comments HEPATITIS C ANTIBODY (BEAKER) (test Reactive Nonreactive A code = 367) [id number] 12:48:00 Test Item Value Reference Range Interpretation Comments PROSTATE SPECIFIC ANTIGEN (BEAKER) 0.4 ng/mL 0.0-4.0 (test code = 844) HIV-1 ANTIGEN WITH HIV-1/2 [id number] 12:48:00 Test Item Value Reference Range Interpretation Comments HIV-1 ANTIGEN WITH HIV 1\T\2 Nonreactive Nonreactive ANTIBODY (2) (BEAKER) (test code = 2586) VITAMIN D, [id number] 12:46:00 Test Item Value Reference Range Interpretation Comments VITAMIN D 25-OH (BEAKER) (test code 7.7 ng/mL 6.6-49.9 = 2764) Effective 03/08/2017: Reference Range ChangeNew: 6.6-49.9 ng/mL Previous: 13.0-47.8 ng/mLRecommended Vitamin D Target Range: 30.0-40.0 ng/mLURINALYSIS W/ [id number] 11:55:00 Test Item Value Reference Range Interpretation [...] 1579) 2 /LPF SOURCE(BEAKER) (test code = 4727) CRYPTOCOCCAL [id number] 11:10:00 Test Item Value Reference Range Interpretation Comments CRYPTOCOCCAL ANTIGEN, SERUM Negative Negative, Interference (BEAKER) (test code = 1828) [id number] 10:59:00 Test Item Value Reference Range Interpretation Comments THYROID STIMULATING HORMONE 2.10 uIU/mL 0.35-4.94 (BEAKER) (test code = 772) [id number] 10:59:00 Test Item Value Reference Range Interpretation Comments FERRITIN (BEAKER) (test code = 361) 69 ng/mL 5-275 [id number] 10:51:00 Test Item Value Reference Range Interpretation Comments RPR SCREEN (BEAKER) (test code = Nonreactive Nonreactive 420) [id number] 10:49:00 Test Item Value Reference Range Interpretation Comments TRANSFERRIN (BEAKER) (test code = 197 mg/dL 174-382 541) Specimen slightly [id number] 10:45:00 Test Item Value Reference Range Interpretation Comments MAGNESIUM (BEAKER) (test code = 1.5 mg/dL 1.6-2.6 L 627) [id number] 10:45:00 Test Item Value Reference Range Interpretation Comments PHOSPHORUS (BEAKER) (test code = 3.6 mg/dL 2.3-4.7 604) URIC [id number] 10:45:00 Test Item Value Reference Range Interpretation Comments URIC ACID (BEAKER) (test code = 4.8 mg/dL 2.6-7.2 773) Specimen slightly ictericCOMPREHENSIVE METABOLIC [id number] 10:45:00 Test Item Value Reference Range Interpretation [...] FOR DIALYSIS PATIEN TS. Specimen slightly ictericLIPID [id number] 10:45:00 Test Item Value Reference Range Interpretation [...] 160-189 Very High >=190 Specimen slightly ictericBILIRUBIN, [id number] 10:45:00 Test Item Value Reference Range Interpretation Comments BILIRUBIN DIRECT (BEAKER) (test 1.6 mg/dL 0.1-0.5 H code = 706) GAMMA GLUTAMYL TRANSFERASE (GGT)2018-12-20 10:45:00 Test Item Value Reference Range Interpretation Comments GAMMA GLUTAMYL TRANSFERASE (BEAKER) 33 U/L 9-64 (test code = 364) Specimen slightly [id number] 10:42:00 Test Item Value Reference Range Interpretation Comments PARTIAL THROMBOPLASTIN TIME 37.9 seconds 22.5-36.0 H (BEAKER) (test code = 760) PROTHROMBIN TIME/[id number] 10:36:00 Test Item Value Reference Range Interpretation [...] INR is2.5-3.5 for patients wiht mechanical heart valves.[id number] 10:36:00 Test Item Value Reference Range Interpretation Comments ETHANOL (BEAKER) (test code = 400) < mg/dL <=10 [id number] 10:36:00 Test Item Value Reference Range Interpretation Comments FIBRINOGEN LEVEL (BEAKER) (test 207 mg/dl 225-434 L code = 658) BLOOD GAS, [id number] 10:35:00 Test Item Value Reference Range Interpretation [...] 21.0 % CBC W/PLT COUNT & AUTO [id number] 10:25:00 Test Item Value Reference Range Interpretation [...] 0-1 PERCENT (BEAKER) (test code = 2801) CALCIUM, [id number] 10:20:00 Test Item Value Reference Range Interpretation Comments CALCIUM IONIZED (BEAKER) (test 1.05 mmol/L 1.12-1.27 L code = 698) PH, BLOOD (BEAKER) (test code = 7.41 1810) RAD, MANDIBLE, MIN 4 [id number] 16:56:00REFERRING : CHERELLE SALVADOR Reason for Exam:->pretransplant liver evaluationFINAL REPORT TECHNIQUE: Minimum four views of the mandible. INDICATION: pretransplant liver evaluation. COMPARISON: None. FINDINGS:No fracture or dislocation.No periapical lucencies.Caries of a maxillary molar, side indeterminate.Mild degenerative disc changes at C4-C5, C5-C6, and C6-C7. IMPRESSION: No periapical lucency. Caries of a maxillary molar, side indeterminate. Signed:Tawanda Hernandez Verified Date/Time: 12/19/2018 16:56:31 Reading Location: [address] Radiology Reading Room RAD, CHEST, 2 [id number] 15:51:00REFERRING : CHERELLE SALVADOR Reason for Exam:->pretransplant [...] Hathaway Verified Date/Time: 12/19/2018 15:51:17 [facility], ABDOMEN, [id number] 14:51:00 REFERRING MD: CHERELLE VEGAINAL REPORT TECHNIQUE: MRI of the abdomen WITHOUT [...] and large esophageal varices. Signed: Tawanda Hernandez [facility] Verified Date/Time: 12/19/2018 14:51:24 Reading Location: [address] Radiology Reading Room [facility] 2018-12-06 11:12:00 Test Item Value Reference Range Interpretation Comments ETHANOL (BEAKER) (test code = 400) < mg/dL <=10 BASIC METABOLIC [id number] 10:56:00 Test Item Value Reference Range Interpretation [...] DIALYSIS PATIEN TS. Specimen moderately ictericHEPATIC FUNCTION [id number] 10:56:00 Test Item Value Reference Range Interpretation [...] 27 U/L 6-55 347) Specimen moderately ictericPROTHROMBIN [id number] 10:40:00 Test Item Value Reference Range Interpretation [...] mechanical heart valves.CBC W/PLT COUNT & AUTO [id number] 10:38:00 Test Item Value Reference Range Interpretation [...] PERCENT (BEAKER) (test code = 2801) BLOOD [id number] 08:00:00 Test Item Value Reference Range Interpretation Comments CULTURE (BEAKER) (test No growth in 5 days code = 1095) BLOOD [id number] 08:00:00 Test Item Value Reference Range Interpretation Comments CULTURE (BEAKER) (test No growth in 5 days code = 1095) BODY FLUID CULTURE + GRAM [id number] 12:20:00 Test Item Value Reference Range Interpretation Comments CULTURE (BEAKER) (test code No growth = 1095) GRAM STAIN RESULT (BEAKER) 1+ WBCs (test code = 1123) GRAM STAIN RESULT (BEAKER) No organisms seen (test code = 49685) HEPATITIS C PCR, [id number] 08:32:00 Test Item Value Reference Range Interpretation Comments HCV RESULT COMPONENT HCV RNA not detected HCV RNA not detected (BEAKER) (test code = 2699) This test uses a Real-Time Polymerase Chain Reaction (RT-PCR) methodology and was performed using [employer] Ampliprep/KHOA TaqMan HCV test kit version 2.0 ([employer]).Reportable range for this assay is 15 - 100,000,000 IU per mL (1.18 - 8.00 Log IU/mL).POCT-GLUCOSE [id number] 08:09:00 Test Item Value Reference Range Interpretation Comments POC-GLUCOSE METER 117 mg/dL 70-[address] [facility] [address] ([facility]) (test code = [place] 1538) [address] CALCIUM, [id number] 05:54:00 Test Item Value Reference Range Interpretation Comments CALCIUM IONIZED (BEAKER) (test 1.01 mmol/L 1.12-1.27 L code = 698) PH, BLOOD (AKER) (test code = 7.45 1810) COMPREHENSIVE METABOLIC [id number] 05:07:00 Test Item Value Reference Range Interpretation [...] APPLICABLE FOR DIALYSIS PATIEN TS. Specimen slightly [id number] 05:06:00 Test Item Value Reference Range Interpretation Comments PHOSPHORUS (BEAKER) (test code = 3.3 mg/dL 2.3-4.7 604) [id number] 05:06:00 Test Item Value Reference Range Interpretation Comments MAGNESIUM (BEAKER) (test code = 1.5 mg/dL 1.6-2.6 L 627) CBC W/PLT COUNT & AUTO [id number] 04:43:00 Test Item Value Reference Range Interpretation [...] PERCENT (BEAKER) (test code = 2801) POCT-GLUCOSE [id number] 21:35:00 Test Item Value Reference Range Interpretation Comments POC-GLUCOSE METER 154 mg/dL 70-[address] [facility] (BEAKER) (test code = [place] 1538) [address] POCT-GLUCOSE [id number] 17:21:00 Test Item Value Reference Range Interpretation Comments POC-GLUCOSE METER 138 mg/dL 70-[address] [facility] [address] (BEAKER) (test code = [place] 1538) [address] POCT-GLUCOSE [id number] 13:27:00 Test Item Value Reference Range Interpretation Comments POC-GLUCOSE METER 166 mg/dL 70-[address] [facility] [address] (BEAKER) (test code = [place] 1538) [address] CBC W/PLT COUNT & AUTO [id number] 12:00:00 Test Item Value Reference Range Interpretation [...] 3438) Received comment: User comments: Slide comments:POCT-GLUCOSE [id number] 11:52:00 Test Item Value Reference Range Interpretation Comments POC-GLUCOSE METER 180 mg/dL 70-110 H TESTED AT [place] [address] (BEAKER) (test code = NICOLE Arita [facility] 1538) [address] POCT-GLUCOSE [id number] 08:09:00 Test Item Value Reference Range Interpretation Comments POC-GLUCOSE METER 115 mg/dL 70-110 H TESTED AT [place] [id number] [facility] (test code = NICOLE Arit[place] 1538) [address] COMPREHENSIVE METABOLIC [id number] 05:59:00 Test Item Value Reference Range Interpretation [...] (test code = 697) AST (SGOT) (BEAKER) 74 U/L 5-34 H (test code = 353) ALT (SGPT) (BEAKER) 32 U/L 6-55 (test code = 347) EGFR (BEAKER) (test 119 ESTIMATE D GFR IS code = 1092) mL/min/1.73 sq NOT ACCURA TE m CREATININE CLEARANCE IN PREDICTING GLOMERULAR FILTRATION RATE . ESTIMATED GFR I S NOT APPLICABLE FOR DIALYSIS PATIEN TS. Specimen slightly [id number] 05:57:00 Test Item Value Reference Range Interpretation Comments MAGNESIUM (BEAKER) (test code = 1.6 mg/dL 1.6-2.6 627) POCT-GLUCOSE [id number] 22:30:00 Test Item Value Reference Range Interpretation Comments POC-GLUCOSE METER 186 mg/dL 70-[address] [facility] (test code = [place] 1538) [address] POCT-GLUCOSE [id number] 18:33:00 Test Item Value Reference Range Interpretation Comments POC-GLUCOSE METER 117 mg/dL 70-[address] [facility] (test code = NICOLE Arita [facility] 1538) [address] U/S, [id number] 17:34:00REFERRING : CHERELLE SALVADOR Please give 25g [...] 2% lidocaine anesthesia was administered. A 5 Tajik catheter was advanced into the peritoneal cavity and 1300 cc of addison fluid was removed. The catheter was removed without immediate complication. Samples left with interstitial sent to the lab for analysis. IMPRESSION:Uncomplicated ultrasound-guided paracentesis with 1300 cc fluid removed. Signed: Mauricio Cullen MDReport Verified Date/Time: 10/29/2018 17:34:00 Reading Location: [address] Ultrasound Reading Room VANCOMYCIN LEVEL, TROUGH 2018-10-29 17:22:00 Test Item Value Reference Range Interpretation Comments VANCOMYCIN TROUGH (BEAKER) (test 7.3 ug/mL 10.0-20.0 L code = 522) CBC W/PLT COUNT & AUTO [id number] 15:00:00 Test Item Value Reference Range Interpretation [...] = 2801) BODY FLUID CELL COUNT WITH [id number] 13:45:00 Test Item Value Reference Range Interpretation [...] Tube (test code = 2873) RESPIRATORY PANEL [id number] 12:27:00 Test Item Value Reference Range Interpretation [...] This sample was tested at the [facility] using the SuperSecretArray Respiratory Panel. It is FDA cleared and has been verified and approved by the [facility] for clinical use on nasopharyngeal swab specimens.The performance of the FilmArrayRP has not been established in individuals who received influenza vaccine. Recent administration ofa nasal influenza vaccine may cause false positive results for Influenza A and/orInfluenza B.POCT-GLUCOSE [id number] 12:16:00 Test Item Value Reference Range Interpretation Comments POC-GLUCOSE METER 196 mg/dL 70-[address] [facility] ([place]) (test code = [place]ICOLE [place] 1538) [address] RESPIRATORY PANEL [id number] 10:59:00 Test Item Value Reference Range Interpretation [...] detected Not detected, (BEAKER) (test code = 1480) Equivocal ADENOVIRUS (BEAKER) (test Not detected Not [...] This sample was tested at the [facility] using the SuperSecretArray Respiratory Panel. It is FDA cleared and has been verified and approved by the [facility] for clinical use on nasopharyngeal swab specimens.The performance of the FilmArrayRP has not been established in individuals who received influenza vaccine. Recent administration ofa nasal influenza vaccine may cause false positive results for Influenza A and/orInfluenza B.POCT-GLUCOSE [id number] 08:15:00 Test Item Value Reference Range Interpretation Comments POC-GLUCOSE METER 184 mg/dL 70-[address] [facility] ([facility]) (test code = NICOLE Arita [place] 1538) [address] CBC W/PLT COUNT & AUTO [id number] 07:49:00 Test Item Value Reference Range Interpretation Comments WHITE BLOOD CELL COUNT (AKER) 7.2 K/ L 3.5-10.5 (test code = 775) RED BLOOD CELL COUNT (AKER) 2.66 M/ L 4.63-6.08 L (test code = 761) HEMOGLOBIN (BEAKER) (test code = 8.9 GM/DL 13.7-17.5 L 410) HEMATOCRIT ([facility]) (test code = 27.2 % 40.1-51.0 L 411) MEAN CORPUSCULAR VOLUME ([facility]) 102.3 fL 79.0-92.2 H (test code = [...] APPLICABLE FOR DIALYSIS PATIEN TS. Specimen moderately [id number] 04:31:00 Test Item Value Reference Range Interpretation Comments MAGNESIUM (BEAKER) (test code = 1.9 mg/dL 1.6-2.6 627) LACTIC ACID, [id number] 04:18:00 Test Item Value Reference Range Interpretation Comments LACTATE BLOOD VENOUS (2) ([facility]) 1.3 mmol/L 0.5-2.2 (test code = 2872) Specimen moderately ictericPOCT-GLUCOSE [id number] 18:00:00 Test Item Value Reference Range Interpretation Comments POC-GLUCOSE METER 121 mg/dL 70-[address] [facility] ([facility]) (test code = [facility] Juan [place] 1538) [address] [id number] 12:39:00 Test Item Value Reference Range Interpretation Comments PROCALCITONIN ([facility]) (test code 4.50 ng/mL <0.05 H = 3036) SEPSIS RISK (ng/mL)Low: 0.05-0.50Intermediate: 0.51-2.00High: >=2.01POCT-GLUCOSE [id number] 12:20:00 Test Item Value Reference Range Interpretation Comments POC-GLUCOSE METER 148 mg/dL 70-[address] [facility] ([facility]) (test code = [facility] 1538) [address] LEGIONELLA ANTIGEN, [id number] 12:13:00 Test Item Value Reference Range Interpretation Comments L. PNEUMOPHILA Negative - see Negative fo r L. SEROGP 1 UR AG comment pneumophila ([facility]) (test code serogrou p 1 antigen, = 1156) suggesting no r ecent or current infe ction with this serog roup. Legionellosis c annot be ruled out si nce other serogroup s and species may cau se disease. STREP PNEUMONIAE [id number] 12:13:00 Test Item Value Reference Range Interpretation Comments STREP PNEUMONIAE Presumptive negative Presumptive negative ANTIGEN (FlocastsAKER) for pneumococcal for pneumococcal (test code = 1615) pneumonia - see pneumonia - see comment commen Presumptive negative for pneumococcal pneumonia, suggesting no current or recent pneumococcal infection. Infection due to S. pneumoniae cannot be ruled out since the antigen present in the sample may be below the detection limit of the test. RAPID INFLUENZA A&B [id number] 12:11:00 Test Item Value Reference Range Interpretation Comments RAPID INFLUENZA A AG (BEAKER) Negative Negative, Inconclusive (test code = 1622) RAPID INFLUENZA B AG (BEAKER) Negative Negative, Inconclusive (test code = 1623) LACTIC ACID, [id number] 10:51:00 Test Item Value Reference Range Interpretation Comments LACTATE BLOOD VENOUS (2) (BEAKER) 3.0 mmol/L 0.5-2.2 H (test code = 2872) Specimen moderately ictericU/S, ABDOMINAL, [id number] 07:19:00REFERRING MD: CHERELLE SALVADOR Please perform with dopplersReason for [...] MDReport Verified Date/Time: 10/28/2018 07:19:25 Reading Location: [address] Transitional Reading Room RAPID DRUG SCREEN, [id number] 07:07:00 Test Item Value Reference Range Interpretation [...] situations. Chain of custody not maintained. Some zcxd-uxb-ktnogvq medications, as well as adulterants, may cause inaccurate results. Clinical correlation should be applied. A more comprehensive drug screen or confirmation of a detected drug may be performed upon request.CT, BRAIN, WITHOUT [id number] 06:42:00REFERRJB MD: CHERELLE LEROYTFINAL REPORT CT, BRAIN, WITHOUT CONTRAST CLINICAL INDICATION: [...] Verified Date/Time: 10/28/2018 06:42:47 VITAMIN B12 AND [id number] 06:21:00 Test Item Value Reference Range Interpretation Comments VITAMIN B12 (BEAKER) (test code = 719 pg/mL 213-816 774) FOLATE (BEAKER) (test code = 362) 13.7 ng/mL >=7.0 TROPONIN [id number] 06:05:00 Test Item Value Reference Range Interpretation [...] 87 % 20-55 H (test code = 2060) COMPREHENSIVE METABOLIC [id number] 05:44:00 Test Item Value Reference Range Interpretation [...] APPLICABLE FOR DIALYSIS PATIEN TS. Specimen moderately [id number] 05:38:00 Test Item Value Reference Range Interpretation Comments MAGNESIUM (BEAKER) (test code = 2.3 mg/dL 1.6-2.6 627) LACTIC ACID, [id number] 05:32:00 Test Item Value Reference Range Interpretation Comments LACTATE BLOOD VENOUS 4.1 mmol/L 0.5-2.2 H Specime n slightly (2) (BEAKER) (test hemolyzed code = 1025) Specimen moderately ictericTROPONIN [id number] 02:28:00 Test Item Value Reference Range Interpretation [...] disease, and persistent tachyarrhythmia.RAD, ABDOMEN/KUB, 1 VIEW [id number] 02:04:00REFERRING MD: CHERELLE SALVADOR Reason for exam:->NG [...] Day MDReport Verified Date/Time: 10/28/2018 02:04:20 HROMBIN [id number] 01:58:00 Test Item Value Reference Range Interpretation [...] mechanical heart valves.CBC W/PLT COUNT & AUTO [id number] 01:45:00 Test Item Value Reference Range Interpretation [...] User comments: Slide comments:URINALYSIS W/ REFLEX URINE [id number] 01:36:00 Test Item Value Reference Range Interpretation [...] SOURCE(BEAKER) (test code = 2795) COMPREHENSIVE METABOLIC [id number] 01:16:00 Test Item Value Reference Range Interpretation [...] APPLICABLE FOR DIALYSIS PATIEN TS. Specimen moderately [id number] 01:15:00 Test Item Value Reference Range Interpretation Comments AMMONIA (BEAKER) (test code = 348) 69 mol/L 18-72 LACTIC ACID, [id number] 01:08:00 Test Item Value Reference Range Interpretation Comments LACTATE BLOOD VENOUS (2) (BEAKER) 3.2 mmol/L 0.5-2.2 H (test code = 2872) Specimen moderately [id number] 01:08:00 Test Item Value Reference Range Interpretation Comments MAGNESIUM (BEAKER) (test code = 1.1 mg/dL 1.6-2.6 L 627) RAD, CHEST, 1 VIEW, NON [id number] 00:52:00REFERRING : CHERELLE SALVADOR Reason for exam:->sepsisShould this be [...] of an acute osseous abnormality. Signed: Williams Lynn MDReport Verified Date/Time: 10/28/2018 00:52:42 Reading Location: [address] Reading Room ACTIN (SMOOTH MUSCLE) ANTIBODY, [id number] 08:28:00 Test Item Value Reference Range Interpretation Comments SCAN RESULT (test code = 3464113) [id number] 08:27:00 Test Item Value Reference Range Interpretation Comments SCAN RESULT (test code = 2540975) NILS TITER AND [id number] 09:55:00 Test Item Value Reference Range Interpretation Comments NILS TITER (BEAKER) (test code = :160 1541) NILS PATTERN (BEAKER) (test code = Speckled 1781) ANTI-NUCLEAR ANTIBODY (NILS)2018-10-05 09:54:00 Test Item Value Reference Range Interpretation Comments ANTI-NUCLEAR ANTIBODY (NILS) (BEAKER) Positive Negative A (test code = 418) Test performed by IFA method.[id number] 10:54:00 Test Item Value Reference Range Interpretation Comments FERRITIN (BEAKER) (test code = 361) 218 ng/mL 5-275 HEPATITIS A ANTIBODY, [id number] 10:18:00 Test Item Value Reference Range Interpretation Comments HEPATITIS A IGG ANTIBODY (BEAKER) Reactive Nonreactive A (test code = 2797) ALPHA FETOPROTEIN (AFP), TUMOR [id number] 10:14:00 Test Item Value Reference Range Interpretation Comments ALPHA-FETOPROTEIN (BEAKER) (test 3.5 ng/mL <10.0 code = 1094) HEPATITIS A ANTIBODY, [id number] 10:14:00 Test Item Value Reference Range Interpretation Comments HEPATITIS A IGM ANTIBODY (BEAKER) Nonreactive Nonreactive (test code = 498) HEPATITIS B CORE ANTIBODY, [id number] 10:14:00 Test Item Value Reference Range Interpretation Comments HEPATITIS B CORE TOTAL ANTIBODY Nonreactive Nonreactive (BEAKER) (test code = 497) HEPATITIS B SURFACE [id number] 09:42:00 Test Item Value Reference Range Interpretation Comments HEPATITIS B SURFACE ANTIBODY < mIU/mL <8.0 (BEAKER) (test code = 647) HEPATITIS B SURFACE [id number] 09:36:00 Test Item Value Reference Range Interpretation [...] 41 % 20-55 (test code = 2590) PNJIK-6-[id number] 09:14:00 Test Item Value Reference Range Interpretation Comments ALPHA-1 ANTITRYPSIN (BEAKER) 159.30 mg/dL 90.00-200.00 (test code = 502) COMPREHENSIVE METABOLIC [id number] 09:10:00 Test Item Value Reference Range Interpretation [...] FOR DIALYSIS PATIEN TS. Specimen slightly ictericBILIRUBIN, [id number] 09:10:00 Test Item Value Reference Range Interpretation Comments BILIRUBIN DIRECT (BEAKER) (test 1.4 mg/dL 0.1-0.5 H code = 706) PROTHROMBIN [id number] 08:38:00 Test Item Value Reference Range Interpretation [...]
--- NOTE | 2019-12-24 12:35 | RAD REPORT ---
EXAM DESCRIPTION: CT - Chest For Pe Angio - 12/24/2019 12:23 pm CLINICAL HISTORY: Chest pain. Cough;Congestion COMPARISON: Chest For Pe Angio dated 10/27/2018 TECHNIQUE: CT angiogram of the pulmonary arteries was performed with MIP. All CT scans are performed using dose optimization technique as appropriate and may include automated exposure control or mA/KV adjustment according to patient size. FINDINGS: No evidence of pulmonary thromboembolism. No acute aortic finding demonstrated. Mild areas of linear and interstitial opacity are present both lungs peripherally No significant pericardial or pleural fluid. No concerning bony finding. IMPRESSION: No evidence of pulmonary thromboembolism. Mild interstitial infiltrates in both lungs probably represent interstitial pneumonitis.
--- NOTE | 2019-12-24 12:42 | RAD REPORT ---
EXAM DESCRIPTION: CTAbdomen Pelvis W Contrast - 12/24/2019 12:24 pm CLINICAL HISTORY: Abdominal pain. ABD PAIN COMPARISON: Abdomen Pelvis W Contrast dated 10/27/2018; Abdomen Pelvis W Contrast dated 07/08/2018; CT ABD PELVIS W CONTRAST dated 09/26/2014; Chest For Pe Angio dated 12/24/2019 TECHNIQUE: Biphasic CT imaging of the abdomen and pelvis was performed with 100 ml non-ionic IV cont rast. All CT scans are performed using dose optimization technique as appropriate and may include automated exposure control or mA/KV adjustment according to patient size. FINDINGS: Mild linear opacities are present in both lung bases, likely representing atelectasis. Lar ge esophageal varices are present at the gastroesophageal junction. Liver cirrhosis is identified with shrunken liver size and nodular contour. 10 mm low-density lesion is seen in the right lobe of the liver, nonspecific. No intra or extrahepatic biliary tree dilatation . The the spleen is mildly enlarged in size. The pancreas, adrenal glands and kidneys show no acute p rocess. Mild ascites. Prominent duodenal diverticulum in the region of the duodenal C-loop is noted, unchange d. Small ventral hernia containing fat and mild fluid seen. No bowel obstruction or free air is prese nt. No acute bony abnormality. Moderate lumbosacral degenerative changes. IMPRESSION: Liver cirrhosis, portal hypertension and mild ascites is noted.
[2019-12-24 13:48] LABS: Anisocytosis 1+; Blood Morphology Comment NOTED (NOT SEEN); Platelet Estimate DECR; Urine White Blood Cell Casts OK
[2019-12-24 13:49] LABS: Polychromasia 1+
[2019-12-24 15:59] VITALS: TEMP 97.8
[2019-12-24 16:01] VITALS: BP 119/56; O2SAT 98
--- NOTE | 2019-12-26 07:38 | EKG ---
Test Date: 2019-12-24 Test Time: 11:22:05 Hogshead Packer: SAVANNAH MEASUREMENT RESULTS: Intervals: Rate: 86 MO: 134 QRSD: 78 QT: 370 QTc: 442 [place]: P: 6 MO: 134 QRS: -34 T: 20 INTERPRETIVE STATEMENTS: Normal sinus rhythm Left axis deviation Low voltage QRS Cannot rule out Anterior infarct, age undetermined Abnormal ECG No previous ECG available for comparison Electronically Signed On 12-26-19 07:33:00 CDT by Nemesio Rachel
== END 2019-12-24 15:39 | disposition short-term general hospital (02) ==
LOC: ER 10:03
DX: U07.1 COVID-19 (principal); K92.2 Gastrointestinal hemorrhage, unspecified; J06.9 Acute upper respiratory infection, unspecified; D64.9 Anemia, unspecified; R50.9 Fever, unspecified; K74.60 Unspecified cirrhosis of liver; E83.42 Hypomagnesemia; I10 Essential (primary) hypertension
CPT/HCPCS: 93005; 87040 ×2; 85025; 80048; 36415; 82140; 86900; 83735; 86850; 85610; 86901; 82947; 85379; 80076; 83605 ×2; 84484; 84145; 83880; 87804 ×2; 71275; 74177; 71045; 99285; Q9967; C9113; J0456; J0696; J7050; J2920; 96365; 96366; 96368; 96375

== ENCOUNTER 2020-01-10 17:46 | Inpatient (IN) | payer OTHER ==
--- OUTSIDE RECORDS SUMMARY | 2020-01-10 17:48 | XMS REPORT | Clinical Summary ---
:1955 Author Organization [facility] Address [address] [place] [address] Care Team Providers Name Role Phone Unavailable [...] 20 yrs) 02/27/2020 Results Not on fileafter 01/09/2019 Insurance Payer Benefit Plan / Subscriber ID Effective Dates Phone Addre ss Type Group [employer] SELF-PAY xxxxxxxxx 2015-Prese [phone] [id number] [place] SELF-PAY UNSCREENED nt [address] [place] [address] [phone] (Work) Advance Directives Code Status Date Activated Date Inactivated Comments Full Code 06/15/2010 2:59 PM 06/17/2010 2:54 PM Full Code 06/04/2010 6:03 AM 06/05/2010 6:33 PM
--- OUTSIDE RECORDS SUMMARY | 2020-01-10 17:49 | XMS REPORT | Clinical Summary ---
:1955 Author Organization [facility] Address [address] [place] [address] Care Team Providers Name Role Phone Unavailable Primary Care Provider Unavailable Allergies No Known Allergies Medications Medication Sig Dispensed Refills Start Date End Date Status lactulose TK 15 ML PO TID 11 09/29/2018 Act nishant (CHRONULAC) 10 gram/15 mL solution spironolactone Take 100 mg by 0 Active (ALDACTONE) 100 MG mouth 2 (two) tablet times daily. carvedilol (COREG) Take 6.25 mg by 0 [...] 2 mouth daily . mg Tab tablet rifAXIMin 550 mg Take 550 mg by 0 Active Tab mouth 2 (two) times daily. furosemide (LASIX) Take 2 tablets 60 tablet 1 06/04/2019 Active 40 MG tablet (80 mg total) by mouth 2 (two) times daily. clobetasoL Apply 1 60 g 6 12/30/2019 Active (TEMOVATE) 0.05 % application cream topically 2 (two) times daily. furosemide (LASIX) TK 1 T PO QAM 11 09/17/2018 Discontinued 40 MG tablet AND QPM 0 ALPRAZolam (XANAX) TK 1 T PO BID 0 11/13/2018 Discontinued 1 MG tablet PRF ANXIETY 0 thiamine 100 mg Tab TK 1 T PO D 3 11/19/2018 02 Discontinued tablet 0 triamcinolone Apply 1 0 08/05/2018 Disco ntinued (KENALOG) 0.1 % application 0 topical cream topically 2 (two) times daily. clobetasol Apply 1 0 12/17/2018 Disconti nued (TEMOVATE) 0.05 % application 0 cream topically 2 (two) times daily. omeprazole Take 40 mg by 0 Disco ntinued (PRILOSEC) 40 MG mouth daily. 0 capsule thiamine (VITAMIN Take 100 mg by 0 02 Discontinued B-1) 100 MG tablet mouth daily. 0 furosemide (LASIX) Take 2 tablets 60 tablet 1 06/04/201906/04 Discontinued 40 MG tablet (80 mg total) by 0 mouth 2 (two) times daily. Active Problems Problem Noted Date SOB (shortness of breath) 12/24/2019 Cirrhosis 06/04/2019 History of alcohol use 03/18/2019 Secondary esophageal varices without bleeding 03/18/20 19 Pre-transplant evaluation for chronic liver disease Last Assessment & Plan: He is an acceptable candidate for liver transplant pending further imaging/testing and official review at [facility]. Psoriasis 12/19/2018 Last Assessment & Plan: Continue [...] Encounters Date Type Specialty Care Team Description 01/10/2020 Telephone Transplant Hepatology Mauricio, Follow -up Samira Arita RN 01/07/2020 Telephone Transplant Hepatology Mauricio, Follow -up Samira Arita RN 01/06/2020 Telephone Transplant Hepatology Mauricio, Follow -up Samira Arita RN 01/06/2020 Telephone Transplant Hepatology Mauricio, Follow -up Samira Arita RN 01/06/2020 Orders Only Transplant Hepatology Sally Martínez organ transplant status (Primary Dx); Samira Arita RN Screening for m alignant neoplasm; Cirrhosis of li tadeo without ascites, unspecified hepatic cirrhosis type (HCC) 01/03/2020 Documentation Transplant Hepatology Marta Stein 01/01/2020 Documentation Transplant Hepatology Marta Stein 12/31/2019 Anesthesia Event Gastroenterology Ban Muse MD 12/31/2019 Telephone Transplant Hepatology Bautista Stein tmecorwin Lindsey (Scheduled 12/27 8 hepatology clin ic ([facility] f/u) appt w/pt. Ityulissa y mailed. ) 12/29/2019 Surgery Gastroenterology CELESTINE Centeno MD ENDOSCOPY,TRUDY NG 12/29/2019 Anesthesia Event Gastroenterology Ban Muse MD 12/28/2019 Anesthesia Event Gastroenterology Clair Henderson, CAITLIN 12/28/2019 Anesthesia Event Gastroenterology Clair Henderson, BUTCHER 12/24/2019 Hospital Encounter General Internal Lizzie Metcalf ageal varices in alcoholic cirrhosis (HCC) (Primary Dx); - Medicine MD Clari SOB (shortness of breath); 12/30/2019 Lanny, Alcoholic cirrh osis of liver with ascites (HCC); MD Andre Ascites due to alcoholic cirrhosis (HCC) ; Chiqui, Cirrhosis of li tadeo without ascites, unspecified hepatic cirrhosis type (HCC); Jennifer Koch, Hepatic encepha lopathy (HCC); Portal hyperten johann (HCC); Psoriasis; COVID-19 12/24/2019 Documentation Internal Medicine Clari Metcalf MD 11/07/2019 Orders Only Transplant Hepatology Sally Martínez organ transplant status (Primary Dx); Samira Arita RN Hepatic cirrhos is, unspecified hepatic cirrhosis type, unspecified whether ascites present (HCC) 10/22/2019 Telephone Transplant Hepatology Bautista Stein Marta Lindsey (Scheduled 01/28 2 clinic, mri & b mds appts w/pt. Itinerary sonya d.) 10/08/2019 Telephone Transplant Hepatology Mauricio, Follow -up Samira Arita RN 10/07/2019 Orders Only Transplant Hepatology Sally Martínez organ transplant status; Samira Arita RN Cirrhosis of li tadeo without ascites, unspecified hepatic cirrhosis type (HCC); Screening for m alignant neoplasm 10/03/2019 Orders Only Transplant Hepatology Sally Martínez organ transplant status (Primary Dx); Samira Arita RN Screening for e ndocrine, metabolic and immunity disorder; Cirrhosis of li tadeo without ascites, unspecified hepatic cirrhosis type (HCC); Screening for m alignant neoplasm 09/26/2019 Telephone Transplant Hepatology Bautista Stein (LVM. Anat REscheduled mis sed mri due now & clinic, mri, bm ds & feghali due Sep t.) 08/29/2019 Documentation Transplant Hepatology Samira Martínez RN 08/26/2019 Orders Only Transplant Hepatology Mauricio, Cirrho sis of liver without ascites, unspecified hepatic cirrhosis type (HCC) (Primary Dx); Samira Arita RN Screening for e ndocrine, metabolic and immunity disorder; Awaiting organ transplant status 08/26/2019 Abstract Transplant Hepatology Samira Martínez RN 08/20/2019 Telephone Transplant Hepatology Jamison, Error Veena Alexandre MD 08/20/2019 Documentation Transplant HepatVeena Santizo MD 08/20/2019 Telephone Transplant Hepatology Jamison, Cirrho sis Follow-up Veena Alexandre MD 08/20/2019 Documentation Transplant Hepatology Eddie Steinberg RN 08/16/2019 Telephone Transplant Hepatology MONE Irvin RN 07/12/2019 UNOS Charge Visit Transplant Shamar Michaels Jr., MD 07/12/2019 Telephone Transplant Hepatology Emil, Appoin tment Anat (Cancelled 07/27 0 hepatology appt and scheduled 08/19 clinic & mri ap pt w/pt. Itinerar y mailed.) 07/12/2019 Documentation Transplant Hepatology Maricel Barber RN 07/10/2019 Orders Only Transplant Hepatology Emil, Metabo lic syndrome; Anat Pre-transplant evaluation for chronic liver disease; Cirrhosis of li tadeo without ascites, unspecified hepatic cirrhosis type (HCC); Abnormal liver function; Alcoholic cirrh osis of liver with ascites (HCC); Portal hyperten johann (HCC) 07/09/2019 Orders Only Transplant Hepatology Maricel Barber, Cirrh osis of liver without ascites, unspecified hepatic cirrhosis type (HCC) (Primary Dx); RN Metabolic syndr ome; Pre-transplant evaluation for chronic liver disease; Abnormal liver function 07/08/2019 Orders Only Transplant Hepatology Maricel Barber, Alcoh olic cirrhosis of liver with ascites (HCC) (Primary Dx); RN Portal hyperten johann (HCC); Metabolic syndr ome; Abnormal liver function 06/13/2019 Abstract Transplant Hepatology Chary Irvin RN 06/13/2019 Abstract Transplant Hepatology Chary Irvin RN 06/04/2019 Surgery Linda, R & L CATH / Jaspal Ibanez CORONARY ANGIO S / PCI 06/04/2019 Hospital Encounter Jaspal Mckeon MD 05/27/2019 Telephone Transplant Hepatology Albaro, Follow -up DIANE Diez 05/08/2019 Office Visit Hepatology Kleber Anaya Alcoholic [...] disorder; Immunity status testing 04/29/2019 Telephone Transplant Hepatology Bautista Stein (LVM. Marta Lindsey Calling to conf irm 04/30 appts.) 04/12/2019 Telephone Transplant Hepatology Bautista Stein (Pt Marta Lindsey called and rescheduled appts due to he has nobody to bring him to his appt. Rescheduled giancarlo e 04/30 i explain ed to pt he needs to make his tranportati on arrangements no w so he doesn't miss that appt. Itinerar y mailed to pt. ) 04/12/2019 Telephone Transplant Hepatology Albaro, Follow -up DIANE Diez 04/08/2019 Telephone Transplant Hepatology Albaro, Follow -up DIANE Diez 03/21/2019 Telephone Transplant Hepatology Albaro, Follow -up DIANE Diez 03/08/2019 Telephone Transplant Hepatology Bautista Stein (Scheduled 03/29 9 clinic & mri ap pt w/pt. Itinerar y mailed.) 03/07/2019 Telephone Transplant Hepatology Bautista Stein (LVM. Marta Lindsey [facility] end of and clinic due end of March. ) 03/06/2019 Telephone Transplant Hepatology Albaro, Follow -up DIANE Diez 03/06/2019 Telephone Transplant Hepatology Albaro, MELD DIANE Diez 03/06/2019 Telephone Transplant Hepatology Albaro, Follow -up DIANE Diez 02/28/2019 Office Visit Hepatology Ankur Dan Alcoholic cirr hosis of liver with ascites (HCC) (Primary Dx); MD Alli Screening for cancer; Kleber Anaya Liver mass; LEWIS Cook Portal hyperten johann (HCC); Hepatic encepha lopathy (HCC); Ascites due to alcoholic cirrhosis (HCC); Immunity status testing; History of alco hol use; 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 02/21/2019 Telephone Transplant Hepatology Albaro, Follow -up DIANE Diez 01/10/2019 Telephone Transplant Hepatology Trevor, Follow -up Rizwana Cruz RN after 01/09/2019 Immunizations Name Dates Previously Given Next Due [...] Vital Sign Reading Time Taken Blood Pressure 122/69 12/30/2019 7:27 AM CDT Pulse 74 12/30/2019 7:27 AM CDT Temperature 37.1 C (98.7 F) 12/30/2019 7:27 AM CDT Respiratory Rate 18 12/30/2019 7:27 AM CDT Oxygen Saturation 97% 12/30/2019 7:27 AM CDT Inhaled Oxygen Concentration - - Weight 103 kg (227 lb 1.2 oz) 12/24/2019 6:00 PM CDT Height 167.6 cm (5' 6") 12/24/2019 6:00 PM CDT Body Mass Index 36.65 12/24/2019 6:00 PM CDT Plan of Treatment Date Type Specialty Care Team Description 01/14/2020 Office Visit Hepatology 02/18/2020 Follow-Up Transplant Hepatology Sumeet Swift MD [address] [address] [phone] 02/18/2020 Appointment Radiology 02/18/2020 Appointment Veena Swift MD [address] [facility] [address] [place], [place] [address] [phone] Health Maintenance Due Date Last Done Comments PNEUMOCOCCAL VACCINE 2-64 YEARS AT RISK (2 of 3 - 12/23/2018 10/28/2018 PPSV23) MEDICARE ANNUAL WELLNESS (YEAR 2 or FIRST YEAR if no 02/27/2019 IPPE) INFLUENZA VACCINE (#1) 2020 04/11/2018 LIPID PANEL 12/20/2021 12/20/2018 COLON CANCER SCREENING COLONOSCOPY 06/12/2028 06/12/2018 Procedures Procedure Name Priority Date/Time Associated Diagnosis Comme nts REPORT OF PROCEDURE - 12/31/2019 3:30 ENDOSCOPY SCAN PM CDT RHYTHM STRIP - SCAN 12/30/2019 5:20 PM CDT POCT-GLUCOSE METER Routine 12/30/2019 7:35 Resul ts for this AM CDT procedure are i n the results section. HEPATIC FUNCTION Routine 12/30/2019 4:33 Results for this PANEL AM CDT procedure are i n the results section. POCT-GLUCOSE METER Routine 12/29/2019 10:05 Resul ts for this PM CDT procedure are i n the results section. POCT-GLUCOSE METER Routine 12/29/2019 5:12 Resul ts for this PM CDT procedure are i n the results section. POCT-GLUCOSE METER Routine 12/29/2019 1:21 Resul ts for this PM CDT procedure are i n the results section. SIGMOIDOSCOPY 12/29/2019 12:30 Gastrointestinal PM CDT hemorrhage, unspecified gastrointestinal hemorrhage type UPPER 12/29/2019 12:30 Gastrointestinal ENDOSCOPY,BANDING PM CDT hemorrhage, unspecified gastrointestinal hemorrhage type POCT-GLUCOSE METER Routine 12/29/2019 11:57 Resul ts for this AM CDT procedure are i n the results section. REPORT OF PROCEDURE - 12/29/2019 11:44 ENDOSCOPY URL AM CDT REPORT OF PROCEDURE - 12/29/2019 11:29 ENDOSCOPY URL AM CDT POCT-GLUCOSE METER Routine 12/29/2019 7:50 Resul ts for this AM CDT procedure are i n the results section. CBC W/PLT COUNT & Routine 12/29/2019 4:55 Result s for this AUTO DIFFERENTIAL AM CDT procedure are in the results section. BASIC METABOLIC PANEL Routine 12/29/2019 4:55 Re sults for this (7) AM CDT procedure are i n the results section. CBC W/PLT COUNT & Routine 12/29/2019 4:55 Result s for this AUTO DIFFERENTIAL AM CDT procedure are in the results section. PROTHROMBIN TIME/INR Routine 12/29/2019 4:55 Res ults for this AM CDT procedure are i n the results section. HEPATIC FUNCTION Routine 12/29/2019 4:55 Results for this PANEL AM CDT procedure are i n the results section. POCT-GLUCOSE METER Routine 12/28/2019 10:01 Resul ts for this PM CDT procedure are i n the results section. POCT-GLUCOSE METER Routine 12/28/2019 9:20 Resul ts for this AM CDT procedure are i n the results section. (CELLAVISION MANUAL Routine 12/28/2019 5:21 Resu lts for this DIFF) AM CDT procedure are i n the results section. CBC W/PLT COUNT & Routine 12/28/2019 5:21 Result s for this AUTO DIFFERENTIAL AM CDT procedure are in the results section. BASIC METABOLIC PANEL Routine 12/28/2019 5:21 Re sults for this (7) AM CDT procedure are i n the results section. CBC W/PLT COUNT & Routine 12/28/2019 5:21 Result s for this AUTO DIFFERENTIAL AM CDT procedure are in the results section. HEPATIC FUNCTION Routine 12/28/2019 5:21 Results for this PANEL AM CDT procedure are i n the results section. POCT-GLUCOSE METER Routine 12/27/2019 9:54 Resul ts for this PM CDT procedure are i n the results section. POCT-GLUCOSE METER Routine 12/27/2019 4:55 Resul ts for this PM CDT procedure are i n the results section. CBC W/PLT COUNT & Routine 12/27/2019 11:56 Result s for this AUTO DIFFERENTIAL AM CDT procedure are in the results section. CBC W/PLT COUNT & Routine 12/27/2019 11:56 Result s for this AUTO DIFFERENTIAL AM CDT procedure are in the results section. POCT-GLUCOSE METER Routine 12/27/2019 11:42 Resul ts for this AM CDT procedure are i n the results section. POCT-GLUCOSE METER Routine 12/27/2019 7:48 Resul ts for this AM CDT procedure are i n the results section. BASIC METABOLIC PANEL Add-On 12/27/2019 4:00 Re sults for this (7) AM CDT procedure are i n the results section. HEPATIC FUNCTION Routine 12/27/2019 4:00 Results for this PANEL AM CDT procedure are i n the results section. POCT-GLUCOSE METER Routine 12/26/2019 9:36 Resul ts for this PM CDT procedure are i n the results section. BLOOD CULTURE Routine 12/26/2019 6:11 Results fo r this PM CDT procedure are i n the results section. BLOOD CULTURE Routine 12/26/2019 6:10 Results fo r this PM CDT procedure are i n the results section. POCT-GLUCOSE METER Routine 12/26/2019 5:36 Resul ts for this PM CDT procedure are i n the results section. POCT-GLUCOSE METER Routine 12/26/2019 12:13 Resul ts for this PM CDT procedure are i n the results section. POCT-GLUCOSE METER Routine 12/26/2019 7:38 Resul ts for this AM CDT procedure are i n the results section. CBC W/PLT COUNT & Routine 12/26/2019 4:24 Result s for this AUTO DIFFERENTIAL AM CDT procedure are in the results section. VITAMIN B12 AND Routine 12/26/2019 4:24 Results for this FOLATE AM CDT procedure are i n the results section. HEPATIC FUNCTION Routine 12/26/2019 4:24 Results for this PANEL AM CDT procedure are i n the results section. PROTHROMBIN TIME/INR Routine 12/26/2019 4:24 Res ults for this AM CDT procedure are i n the results section. BASIC METABOLIC PANEL Routine 12/26/2019 4:24 Re sults for this (7) AM CDT procedure are i n the results section. CBC W/PLT COUNT & Routine 12/26/2019 4:24 Result s for this AUTO DIFFERENTIAL AM CDT procedure are in the results section. POCT-GLUCOSE METER Routine 12/25/2019 9:59 Resul ts for this PM CDT procedure are i n the results section. HEMOGLOBIN AND Routine 12/25/2019 3:56 Results f or this HEMATOCRIT PM CDT procedure are i n the results section. FERRITIN Routine 12/25/2019 12:02 Results for this PM CDT procedure are i n the results section. IRON, TIBC, % SAT. Routine 12/25/2019 12:02 Resul ts for this (WITHOUT FERRITIN) PM CDT procedure are in the results section. CBC W/PLT COUNT & Routine 12/25/2019 4:55 Result s for this AUTO DIFFERENTIAL AM CDT procedure are in the results section. COMPREHENSIVE Routine 12/25/2019 4:55 Results fo r this METABOLIC PANEL AM CDT procedure ar e in the results section. CBC W/PLT COUNT & Routine 12/25/2019 4:55 Result s for this AUTO DIFFERENTIAL AM CDT procedure are in the results section. POCT-GLUCOSE METER Routine 12/24/2019 11:27 Resul ts for this PM CDT procedure are i n the results section. XR CHEST 1 VIEW Routine 12/24/2019 6:17 Results for this PORTABLE/BEDSIDE PM CDT procedure a re in the results section. PLATELET ESTIMATION Routine 10/07/2019 9:28 Resu lts [...] without ascites, section. unspecified hepatic cirrhosis type ( HCC) Screening for malignant neoplasm BILIRUBIN, DIRECT Routine 10/07/2019 9:28 Awaiting organ Resu lts for this AM CDT transplant statu s procedure are in Cirrhosis of liver the resul ts without ascites, section. unspecified hepatic cirrhosis type (HCC) CBC W/PLT COUNT & Routine 10/07/2019 9:28 Awaiting organ Resu lts for this AUTO DIFFERENTIAL AM CDT transplant sta tus procedure are in Cirrhosis of liver the resul ts without ascites, section. unspecified hepatic cirrhosis type (HCC) COMPREHENSIVE Routine 10/07/2019 9:28 Awaiting organ Results for this METABOLIC PANEL AM CDT transplant statu s procedure are in Cirrhosis of liver the resul ts without ascites, section. unspecified hepatic cirrhosis type (HCC) PLATELET ESTIMATION Routine 07/10/2019 12:00 Resu lts for this AM DESIGN ANALYST procedure are i n the results section. COMPREHENSIVE Routine 07/10/2019 12:00 Metabolic syndr ome Results for this METABOLIC PANEL AM DESIGN ANALYST Pre-transplant procedure are in evaluation for chronic the r esults liver disease section. Cirrhosis of liver without ascites, unspecified hepatic cirrhosis type ( HCC) Abnormal liver function PROTHROMBIN TIME/INR Routine 07/10/2019 12:00 Metabolic syndrome Results for this AM DESIGN ANALYST Pre-transplant procedure are in evaluation for chronic the r esults liver disease section. Cirrhosis of liver without ascites, unspecified hepatic cirrhosis type ( HCC) Abnormal liver function CBC W/PLT COUNT & Routine 07/10/2019 12:00 Metabolic syn drome Results for this AUTO DIFFERENTIAL AM DESIGN ANALYST Pre-transplant procedur e are in evaluation for chronic the r esults liver disease section. Cirrhosis of liver without ascites, unspecified hepatic cirrhosis type ( HCC) Abnormal liver function ALPHA FETOPROTEIN Routine 07/10/2019 12:00 Metabolic syn drome Results for this (AFP), TUMOR MARKER AM DESIGN ANALYST Pre-transplant proced ure are in evaluation for chronic the r esults liver disease section. Cirrhosis of liver without ascites, unspecified hepatic cirrhosis type ( HCC) Abnormal liver function REPORT OF PROCEDURE - 06/05/2019 1:52 ENDOSCOPY SCAN PM DESIGN ANALYST CARDIAC CATH REPORT - 06/05/2019 1:52 SCAN PM DESIGN ANALYST VASCULAR DIAGRAM 06/05/2019 1:51 -SCAN PM DESIGN ANALYST STENT / CAROTID MCR 06/04/2019 9:46 Hepatic cirrhos is, - IP PROC ONLY AM DESIGN ANALYST unspecified hepatic cirrhosis type, unspecified whether ascites present (HCC) Case Notes (3)CASE 6TOP R & L CATH / CORONARY 06/04/2019 9:46 AM DESIGN ANALYST Hepatic cirrhosis, unspecified ANGIOS / PCI hepatic cirrhosis type, unspecified whether ascites present (HCC) Case Notes (3)CASE 6TOP CBC W/PLT COUNT & AUTO Routine 06/04/2019 8:38 AM Results for this DIFFERENTIAL DESIGN ANALYST procedure are i n the results section. CBC W/PLT COUNT & AUTO Routine 06/04/2019 8:38 AM Results for this DIFFERENTIAL DESIGN ANALYST procedure are i n the results section. BASIC METABOLIC PANEL Routine 06/04/2019 8:38 AM Results for this (7) DESIGN ANALYST procedure are i n the results section. CBC W/PLT COUNT & AUTO Routine 05/08/2019 1:37 PM Alcoholic Results for this DIFFERENTIAL DESIGN ANALYST cirrhosis of liver procedure are in with ascites (HCC) the resul ts section. ALPHA FETOPROTEIN Routine 05/08/2019 1:37 PM Screening for Re sults for this (AFP), TUMOR MARKER DESIGN ANALYST cancer procedur e are in the results section. PROTHROMBIN TIME/INR Routine 05/08/2019 1:37 PM Alcoholic Results for this DESIGN ANALYST cirrhosis of liver procedure are in with ascites (HCC) the resul ts section. CBC W/PLT COUNT & AUTO Routine 05/08/2019 1:37 PM Alcoholic Results for this DIFFERENTIAL DESIGN ANALYST cirrhosis of liver procedure are in with ascites (HCC) the resul ts section. HEPATIC FUNCTION PANEL Routine 05/08/2019 1:37 PM Alcoholic Results for this DESIGN ANALYST cirrhosis of liver procedure are in with ascites (HCC) the resul ts section. BASIC METABOLIC PANEL Routine 05/08/2019 1:37 PM Alcoholic Results for this (7) DESIGN ANALYST cirrhosis of liver procedure are in with ascites (HCC) the resul ts section. MISCELLANEOUS LAB Routine 05/08/2019 1:37 PM History of alcoh ol ORDER DESIGN ANALYST use CBC W/PLT COUNT & AUTO Routine [...] ascites (HCC) the resul ts section. after 01/09/2019 Results EKG-SCANNED (12/31/2019 3:30 PM CDT)Only the most recent of2 resultswithin the time period is included. Narrative Performed At This result has an attachment that is no t available. RHYTHM STRIP - SCAN (12/30/2019 5:20 PM CDT) Narrative Performed At This result has an attachment that is no t available. POC-Glucose meter (12/30/2019 7:35 AM CDT)Only the most recent of18 results within the time period is included. POC-Glucose Meter 121 (H)Comment: : TESTED 70 - 110 mg/dL [facility] [address] [place] [address], [id number]: Hardboard Supervisor/Public Bath Attendant ID = [id number] for RADHA MURGUIA Specimen Blood Performing Organization Address [facility] [place] Phone Number [address] [phone] [place] Hepatic function panel (12/30/2019 4:33 AM CDT)Only the most recent of7 results within the time period is included. Protein, Total 5.8 (L) 6.0 - 8.3 gm/dL [facility] Albumin 1.9 (L) 3.5 - 5.0 g/dL [facility] Total Bilirubin 2.6 (H) 0.2 - 1.2 mg/dL [facility] Bilirubin, Direct 1.6 (H) 0.1 - 0.5 mg/dL [facility] Alkaline Phosphatase 142 40 - 150 U/L [facility] AST 57 (H) 5 - 34 U/L [facility] ALT 25 6 - 55 U/L [facility] Specimen Blood Narrative Performed At Hardboard Supervisor ID - PIAYA L [facility] Specimen slightly icteric Performing Organization Address City/[facility]/Zipcode Phone Number [address] [phone] [place] REPORT OF PROCEDURE - ENDOSCOPY URL (12/29/2019 11:44 AM CDT) Narrative Performed At This result has an attachment that is no t available. REPORT OF PROCEDURE - ENDOSCOPY URL (12/29/2019 11:29 AM CDT) Narrative Performed At This result has an attachment that is no t available. CBC with platelet count + automated diff (12/29/2019 4:55 AM CDT)Only the most recent of8 resultswithin the time period is included. WBC 8.0 3.5 - 10.5 K/L [facility] RBC 3.16 (L) 4.63 - 6.08 M/L [facility] Hemoglobin 7.3 (L) 13.7 - 17.5 GM/DL [facility] Hematocrit 24.0 (L) 40.1 - 51.0 % [facility] MCV 75.9 (L) 79.0 - 92.[address] [facility] MCH 23.1 (L) 25.7 - 32.2 pg [facility] MCHC 30.4 (L) 32.3 - 36.5 GM/DL [facility] RDW 23.2 (H) 11.6 - 14.4 % [facility] Platelets 90 (L) 150 - 450 K/CU MM [facility] MPV 9.9 9.4 - 12.4 fL [facility] nRBC 0 0 - 0 /100 [address] [facility] % Neutros 55 % [facility] % Lymphs 22 % [facility] % Monos 19 % [facility] % Eos 1 % [facility] % Baso 0 % [facility] # Neutros 4.42 1.78 - 5.38 K/L [facility] # Lymphs 1.78 1.32 - 3.57 K/L [facility] # Monos 1.49 (H) 0.30 - 0.82 K/L [facility] # Eos 0.06 0.04 - 0.54 K/L [facility] # Baso 0.02 0.01 - 0.08 K/L [facility] Immature Granulocytes-Relative 2 (H) 0 - 1 % C [facility] Specimen Blood Performing Organization Address [facility] [place] Phone Number [address] [address] [place] Prothrombin time/INR (12/29/2019 4:55 AM CDT)Only the most recent of6 results within the time period is included. Protime 19.7 (H) 11.9 - 14.2 seconds [facility] INR 1.7 <=5.9 [facility] Specimen Blood Narrative Performed At Effective 10/24/2018: PT Reference Range [facility] Change New: 11.9-14.2Previous: 11.7-14.7 RECOMMENDED COUMADIN/WARFARIN INR THERAPY RANGES STANDARD DOSE: 2.0-3.0Includes: PROPHYLAXIS for venous thrombosis, systemic embolization; TREATMENT for venous thrombosis and/or pulmonary embolus. HIGH RISK: Target INR is 2.5-3.5 for patients wiht mechanical heart valves. Performing Organization Address [facility] [place] Phone Number [address] [address] [place] Basic Metabolic Panel (12/29/2019 4:55 AM CDT)Only the most recent of7 results within the time period is included. Sodium 129 (L) 136 - 145 meq/L [facility] Potassium 4.0 3.5 - 5.1 meq/L [facility] Chloride 102 98 - 107 meq/L [facility] CO2 24 22 - 29 meq/L [facility] BUN 9 7 - 21 mg/dL [facility] Creatinine 0.68 0.57 - 1.25 mg/dL [facility] Glucose 123 (H) 70 - 105 mg/dL [facility] Calcium 7.2 (L) 8.4 - 10.2 mg/dL [facility] EGFR 118Comment: ESTIMATED GFR IS mL/min/1.73 sq m I [facility] NOT ACCURATE [facility] CLEARANCE IN PREDICTING GLOMERULAR FILTRATION RATE. ESTIMATED GFR IS NOT APPLICABLE FOR DIALYSIS PATIENTS. Specimen Blood Narrative Performed At Hardboard Supervisor ID - PIAYA L [facility] Specimen slightly icteric Performing Organization Address City/State/Zipcode Phone Number [facility] [address] [place] [address] CENTER Manual Differential (12/28/2019 5:21 AM CDT) % Neutros 81 % [facility] % Lymphs 3 % [facility] % Monos 10 % [facility] % Eos 2 % [facility] % Baso 1 % [facility] % Bands 3 0 - 10 % [facility] # Neutros 6.89 (H) 1.78 - 5.38 K/ul [facility] # Lymphs 0.26 (L) 1.32 - 3.57 K/ul [facility] # Monos 0.85 (H) 0.30 - 0.82 K/uL [facility] # Eos 0.17 0.04 - 0.54 K/uL [facility] # Baso 0.09 (H) 0.01 - 0.08 K/uL [facility] # Bands 0.26 0.00 - 0.80 K/uL [facility] Total Counted [address] [facility] WBC Morph[facility] Normal [facility] Platelet Morphology Normal [facility] Polychromasia 1+ few [facility] Hypochromia 2+ moderate [facility] Anisocytosis 2+ moderate [facility] Microcytes 2+ moderate [facility] Macrocytes 1+ few [facility] Poikilocytes [address]+ [address] [facility] Target Cells 1+ few [facility] Schistocytes 1+ few [facility] Ovalocytes 1+ few [facility] Tear Drop Cells 1+ few [facility] Noreen Cells 1+ few [facility] Artifact Present [facility] Platelet Conc Decreased [facility] Specimen Blood Narrative Performed At Hardboard Supervisor ID - Carter-Ulisses Ragland [facility] User comments: Slide comments: Performing Organization Address City/State/Zipcode Phone Number [facility] [address] [place] [address] [place] Blood Culture - Routine (Right Venipuncture) (12/26/2019 6:11 PM CDT)Only the most recent of2 resultswithin the time period is included. Result No growth in 5 days [facility] Specimen Blood Performing Organization Address City/State/Zipcode Phone Number [facility] [address] [place] [address] [place] Vitamin B12 and Folate (12/26/2019 4:24 AM CDT) Vitamin B12 873 (H) 213 - 816 pg/mL [facility] Folate 12.30 >=7.00 ng/mL [facility] Specimen Blood Narrative Performed At Hardboard Supervisor ID - EDASI [facility] Performing Organization Address City/[facility] [place] Phone Number [address] [address] C[place] Hemoglobin and hematocrit (12/25/2019 3:56 PM CDT) Hemoglobin 8.6 (L) 13.7 - 17.5 GM/DL [facility] Hematocrit 30.2 (L) 40.1 - 51.0 % [facility] Specimen Blood Narrative Performed At Hardboard Supervisor ID - [id number] [facility] Performing Organization Address [facility] [place] Phone Number [address] [address] [place] Iron, TIBC, % sat. (without ferritin) (12/25/2019 12:02 PM CDT) Iron 29.0 (L) 40.0 - 160.0 ug/dL [facility] TIBC 151 (L) 250 - 450 ug/dL [facility] Iron % Saturation 19 (L) 20 - 55 % [facility] Specimen Blood Narrative Performed At Hardboard Supervisor ID - EDASI [facility] Performing Organization Address City/[facility] [place] Phone Number [address] [address] [place] Ferritin (12/25/2019 12:02 PM CDT) Ferritin 73.10 5.00 - 275.00 ng/mL [facility] Specimen Blood Narrative Performed At Hardboard Supervisor ID - EDASI [facility] Performing Organization Address City/[facility] [place] Phone Number [address] [address] [place] Comprehensive metabolic panel (12/25/2019 4:55 AM CDT)Only the most recent of3 resultswithin the time period is included. Protein, Total 5.7 (L) 6.0 - 8.3 gm/dL [facility] Albumin 1.7 (L) 3.5 - 5.0 g/dL [facility] Alkaline Phosphatase 124 40 - 150 U/L [facility] Total Bilirubin 2.0 (H) 0.2 - 1.2 mg/dL [facility] Sodium 134 (L) 136 - 145 meq/L [facility] Potassium 4.2 3.5 - 5.1 meq/L [facility] Chloride 107 98 - 107 meq/L [facility] CO2 23 22 - 29 meq/L [facility] BUN 12 7 - 21 mg/dL [facility] Creatinine 0.74 0.57 - 1.25 mg/dL [facility] Glucose 284 (H) 70 - 105 mg/dL [facility] Calcium 7.3 (L) 8.4 - 10.2 mg/dL [facility] AST 40 (H) 5 - 34 U/L [facility] ALT 20 6 - 55 U/L [facility] EGFR 107Comment: ESTIMATED mL/min/1.73 sq m [facility] GFR IS NOT ACCURATE [facility] CREATININE CLEARANCE IN PREDICTING GLOMERULAR FILTRATION RATE. ESTIMATED GFR IS NOT APPLICABLE FOR DIALYSIS PATIENTS. Specimen Blood Narrative Performed At Hardboard Supervisor LEOPOLDO - [facility] CENTER Performing Organization Address City/State/Zipcode Phone Number [facility] [address] [place] [address] CENTER XR chest 1 view portable / bedside (12/24/2019 6:17 PM CDT) Specimen Narrative Performed At FINAL REPORT [facility] TECHNIQUE: Frontal view of the chest. INDICATION: 64-year-old man with shortne ss of breath. COMPARISON: Chest radiograph 12/19/2018. FINDINGS: LINES/TUBES: None. LUNGS: Lungs are well inflated. No conso lidation or pulmonary edema. PLEURA: No pneumothorax or significant p leural effusion. HEART AND MEDIASTINUM: Persistent promin ence of the cardiac silhouette. Atherosclerotic calcificatio ns in the thoracic aorta. BONES AND SOFT TISSUES: Deformity of the right anterior seventh rib, new since 12/19/2018. Soft tissues are un remarkable. IMPRESSION: No acute cardiopulmonary abnormalities. New deformity of the right anterior justin nth rib, suggestive of age-indeterminate fracture. Signed: Daniella Colunga MD Report Verified Date/Time:12/24/2019 18:52:34 Reading Location: [facility] C[facility] Consult R eading Room Procedure Note Interface, External Ris In - 12/24/2019 6:54 PM CDT FINAL REPORT TECHNIQUE: Frontal view of the chest. INDICATION: 64-year-old man with shortne ss of breath. COMPARISON: Chest radiograph 12/19/2018. FINDINGS: LINES/TUBES: None. LUNGS: Lungs are well inflated. No conso lidation or pulmonary edema. PLEURA: No pneumothorax or significant p leural effusion. HEART AND MEDIASTINUM: Persistent promin ence of the cardiac silhouette. Atherosclerotic calcificatio ns in the thoracic aorta. BONES AND SOFT TISSUES: Deformity of the right anterior seventh rib, new since 12/19/2018. Soft tissues are un remarkable. IMPRESSION: No acute cardiopulmonary abnormalities. New deformity of the right anterior justin nth rib, suggestive of age-indeterminate fracture. Signed: Daniella Colunga MD Report Verified Date/Time: 12/24/2019 1 8:52:34 Reading Location: [facility] B1 [id number] Consult R eading Room Performing Organization Address City/State/Zipcode Phone Number GE RIS PLATELET ESTIMATION (10/07/2019 9:28 AM CDT)Only the most recent of2 results within the time period is included. Platelet Estimate DECREASED (A) [facility]DE[facility] Specimen Narrative Performed At FASTING:YES [facility] FASTING: YES Resulting Agency Comment Performing Organization Information: Site ID: [id number] Name: [id number] Address: [address] [place] [address] [place] [address] Director: Terrell Romeo Performing Organization Address City/[facility] [place] Phone Number [facility] [address] [place] [address] [facility] Alpha fetoprotein (AFP), tumor marker (10/07/2019 9:28 AM CDT)Only the most recent of4 resultswithin the time period is included. Alpha-Fetoprotein 3.2 <6.1 ng/mL [facility] Comment: This test was performed using the [employer] r chemiluminescent method. Values obtained from different assay methods cannot be used interchangeably. AFP levels, regardless of value, should not be interpreted as absolute evidence of the presence or absence of disease. Specimen Blood Narrative Performed At FASTING:YES [facility] FASTING: YES Resulting Agency Comment Performing Organization Information: Site ID: [id number] Name: [facility] ab Address: [address] [place] [address] Director: Dr. Terrell faria Performing Organization Address [facility] Phone Number [facility] [address] [place] [address] [facility] CBC with platelet count + automated diff [...] Agency Comment Performing Organization Information: Site ID: [id number] Name: [facility] Address: [address] [place] [id number] Director: Terrell Romeo Performing Organization Address [facility] [place] Phone Number [facility] [address] [place] [address] [facility] Bilirubin, direct (10/07/2019 9:28 AM CDT) Bilirubin, Total 2.4 (H) 0.2 - 1.2 mg/dL [facility] Bilirubin, Direct 0.7 (H) < OR = 0.2 mg/dL [facility] Bilirubin, Indirect 1.7 (H) 0.2 - 1.2 mg/dL (calc) [facility] Specimen Blood Narrative Performed At FASTING:YES [facility] FASTING: YES Resulting Agency Comment Performing Organization Information: Site ID: [id number] Name: [facility] Address: [address] [place] [phone] Director: Terrell Romeo Performing Organization Address [facility] [place] Phone Number [facility] [address] [place] [address] [facility] CARDIAC CATH REPORT - SCAN (06/05/2019 1:52 PM DESIGN ANALYST) Narrative Performed At This result has an attachment that is no t available. VASCULAR DIAGRAM -SCAN (06/05/2019 1:51 PM DESIGN ANALYST) Narrative Performed At This result has an attachment that is no t available. Miscellaneous lab test (05/08/2019 1:37 PM DESIGN ANALYST) Scan Result [facility] Specimen Blood Narrative Performed At This result has an attachment that is no t available. Performing Organization Address City/State/Zipcode Phone Number [facility] [address] [place], [place] after 01/09/2019 Insurance Payer Benefit Plan / Group Subscriber ID Type Phone A ddress MEDICARE MEDICARE A B xxxxxxxxxxx Medicare Advance Directives For more information, please contact:[place] [id number] [place], [place] [phone] Code Status Date Activated Date Inactivated Comments Full Code 12/24/2019 5:39 PM 12/30/2019 1:05 PM This code status was determined by: Patient Full Code 06/04/2019 8:04 AM 06/04/2019 9:17 PM This code status was determined by: Patient Full Code 10/27/2018 11:47 PM 10/31/2018 4:20 PM This code status was determined by: Patient
--- OUTSIDE RECORDS SUMMARY | 2020-01-10 17:54 | XMS REPORT | Continuity of Care Document ---
:1955 Author Organization [facility] t Address [address] [place] [address] Care Team Providers Name Role Phone Mauricio CONTRERAS, R Attending Clinician Unavailable Rosalia Stein Attending Clinician Unavailable Porsche Muse MD Attending Clinician LOUIS Attending Clinician Unavailable Louis GOMEZ Attending Clinician Compa GOMEZ Attending Clinician Zee Florian MD Attending Clinician Jacobo GOMEZ Attending Clinician Sera Henderson CRNA Attending Clinician [phone] Harika GOMEZ Attending Clinician Bettie Swift MD [...] Unavailable Yumiko Rod MD Attending Clinician Trevor CONTRERAS, F Attending Clinician Unavailable BUBBA LI Attending Clinician Unavailable COMPA Admitting Clinician Unavailable MONAE AN Admitting Clinician Unavailable BUBBA LI Admitting Clinician Unavailable Payers Payer Name Policy Policy Number Effective Expiration Source Type Date Date MEDICAREMEDICARE A xxxxxxxxxxx [facility] Problems Condition Condition Condition Status Onset Resolution Last Treating Co mments Source Name Details Category Date Date Treatment Clinician Date SOB SOB Disease Active [facility] (shortness (shortness 7-28 Esther kes - of breath) of breath) 00:00: Me dical 00 Center Cirrhosis Cirrhosis Disease Active [facility] 1-07 [...] Active Last [facility] lant lant 7-24 [facility] - evaluation evaluation 00:00: t & Plan: Medical for for 00 He is an Center chronic chronic acceptabl liver liver e disease disease candidate for liver transplan t pending further imaging/t esting and official review at B. Psoriasis Psoriasis Disease Active Last [facility] - 00:00: t & Plan: [...] Portal Disease Active [facility] hypertensi hypertensi 10-30 Esther kes - on on 00:00: Medical 00 Center Septic Septic Disease Active [facility] shock [facility]30 [facility] - 00:[facility]: Medical 00 Center Hepatic Hepatic Disease Active [facility] encephalop encephalop 10-30 Esther kes - athy athy 00:00: Medical 00 Center Sepsis Sepsis Disease Active [facility] 10[facility]27 [facility] - 00:00: Medical 00 Center Alcoholic Alcoholic Disease Active [facility] cirrhosis cirrhosis 10-03 Assesspooja garcia - of liver of liver 00:00: t & Plan: Med ical with with 00 Cirrhosis Center ascites ascites secondary to ETOH/AGUILAR . He will continue follow up with hepatolog y. Ascites Ascites Disease Active [facility] due to due to 10-03 Assessmen Keila - alcoholic alcoholic 00:00: t & Plan: M edical cirrhosis cirrhosis [address] and leg swelling is controlle d with Lasix 40 mg and Aldactone 100 mg a day; restrict salt to 2 gm per day. Low carb but high protein diet. Screening Screening Disease Active [facility] cancer [facility] - 00:00: t & Plan: Medical 00 Cirrhosis Center , regardles s of etiology, is a risk factor for hepatocel lular carcinoma (HCC), with an annual incidence of 1.5-7%. We recommend surveilla nce for HCC with abdominal imaging and alphafeto protein every 6 months. MRI 07/17 did not show any liver lesion. 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 Thrombocyt Thrombocyt Disease Active H [facility] History of Past Illness Condition Condition Condition Status Onset Resolution Last Treating Co mments Source Name Details Category Date Date Treatment Clinician Date Portal Portal Disease Resolve 2019-03-18 2019-03-[address] hypertensi hypertensi d 10-03 00:00:00 19:07:40 [facility] - on on 00:00: Medical 00 Center Encephalop Encephalop Disease Resolve 2019-03-18 2019-03-18 [facility] athy athy d 10-03 00:00:00 19:07:52 [facility] - 00:00: Medical 00 Center Allergies, Adverse Reactions, Alerts This patient has no known allergies or adverse reactions. Family History Family Member Diagnosis Comments Start Date Stop Date Source Natural brother Diabetes [facility] Natural brother Hypertension [facility] Natural father Diabetes [facility] Natural mother Liver disease [facility] Natural sister Cancer [facility] Social History Social Habit Start Date Stop Date Quantity Comments Source History SDOH [facility] - Alcohol Std Drinks Medica l Center History SDOH [facility] - Alcohol Binge Medical [address] Sex Assigned At [facility] History IDOH 2018-10-03 2018-10-03 1 [facility] - Alcohol Frequency 00:00:00 00:00:00 [facility] History of tobacco 2017-10-03 Current smoker I [facility] - use 00:00:00 [facility] Cigarettes smoked 2015-12-15 2015-12-15 [facility] current (pack per 00:00:00 00:00:00 day) - Reported Cigarette 2015-12-15 2015-12-15 [facility] pack-years 00:00:00 00:00:00 Alcohol intake 2015-12-15 2015-12-15 Current drinker [facility] 00:00:00 00:00:00 of alcohol (finding) Alcohol Comment 2010-06-15 2010-06-15 6 packs/day-last [facility] 00:00:00 00:00:00 time yesterday Smoking Status Start Date Stop Date Source Former smoker 2019-12-30 00:00:00 2019-12-30 00:00:00 [facility] Current every day 2015-12-15 00:00:00 [facility] smoker Medications Ordered Filled Start Stop Current Ordering Indication Dosage Frequency Signature Comments Components Source Medication Medication Date Date Medication? Clinician (SIG) Name Name omeprazole 2019- No 40mg QD Take [address] [facility] (PRILOSEC) 12-29 by mouth [facility] s - 40 MG 09:55: 00:00 daily. Medical capsule 47 :00 Center thiamine 2020- No 100mg QD Take [address] (VITAMIN 8-03 08-03 mg by [facility] - B-1) 100 MG 09:55: 00:00 mouth Medi jeevan tablet 47 :00 daily. [place] clobetasoL Yes 1{appli Q.5D Apply [address] (TEMOVATE) 8-03 cation} applicatio [facility]ukes - 0.05 % 00:00: n Medical cream 00 topically Center 2 (two) times daily. furosemide Yes 80mg Q.5D Take 2 [facility] (LASIX) 40 1-07 tablets [facility] - MG tablet 00:00: (80 mg Medica l 00 total) by Center mouth 2 (two) times daily. furosemide 2020- No 80mg Q.5D Take [address] (LASIX) 40 1-07 01-07 tablets [facility] - MG tablet 00:00: 00:00 (80 mg Medic al 00 :00 total) by Center mouth 2 (two) times daily. rifAXIMin 2018-05 Yes 550mg Q.5D Take [address] 550 mg Tab 0-03 mg by [facility] - 12:04: mouth 2 Medical 32 (two) Center times daily. clobetasol 2020- No 1{appli Q.5D Apply [address] (TEMOVATE) 7-22 08-03 cation} applicatio [facility]ukes - 0.05 % 00:00: 00:00 n Medical cream 00 :00 topically Center 2 (two) times daily. pitavastati Yes 2mg QD Take [address] n calcium 7-11 by mouth [facility] - (LIVALO) 2 09:19: daily . Medi jeevan mg Tab 47 Center tablet thiamine 2020- No TK [address] [address] 100 mg Tab 6-24 08-03 D [facility] - tablet 00:00: 00:00 Medical 00 :00 [place] ALPRAZolam 2020- No TK [address] (XANAX) 1 6-18 08-03 BID PRF [facility] - MG tablet 00:00: 00:00 ANXIETY Medi jeevan 00 :00 [place] folic acid 2018- Yes TK [address] (FOLVITE) 1 6-13 QD [facility] - MG tablet 00:00: Medical 00 [place] spironolact Yes 100mg Q.5D Take [address] one 6-02 mg by [facility] - (ALDACTONE) 10:08: mouth 2 Med ical 100 MG 46 (two) Center tablet times daily. lactulose Yes TK [address] (CHRONULAC) 5-04 PO TID [facility] - 10 gram/15 00:00: Medical mL solution 00 [place] furosemide 2020- No TK [address] (LASIX) 40 4-22 01-07 QAM AND [facility] - MG tablet 00:00: 00:00 QPM Medical 00 :00 [place] triamcinolo 2020- No 1{appli Q.5D Apply [address] ne 3-10 08-03 cation} applicatio [facility] - (KENALOG) 00:00: 00:00 n Medical 0.1 % 00 :00 topically [place] topical 2 (two) cream times daily. metFORMIN [...] daily . Medi jeevan 40 MG 00 [place] tablet hydrOXYzine 2017-05 Yes 50mg Take [address] (ATARAX) 50 1-14 by mouth Luke [facility] - MG tablet 00:00: as needed Med ical 00 . [place] traMADol Yes Recurrent 50mg Take 1 [facility] (ULTRAM) 50 7-19 umbilical tablet by Health mg tablet 00:00: hernia mouth 00 every 6 hours as needed for Pain. Immunizations Ordered Immunization Filled Immunization Date Status Commen ts Source Name Name Pneumococcal 2018-10-[address] [facility] - Conjugate (Prevnar) 00:00:00 Medic al [place] 13-Valent Vital Signs Vital Name Observation Time Observation Value Comments Source Systolic blood 2019-12-30 07:27:00 122 mm[Hg] [facility] Diastolic blood 2019-12-30 07:27:00 69 mm[Hg] [facility] Heart rate 2019-12-30 07:27:00 74 /min [facility] Body temperature 2019-12-30 07:27:00 37.06 Corrina [facility] Respiratory rate 2019-12-30 07:27:00 18 /min [facility] Oxygen saturation in 2019-12-30 07:27:00 97 /min [facility] Arterial blood by Medical Ce nter Pulse oximetry Body height 2019-12-24 18:00:00 167.6 cm [facility] Body weight Measured 2019-12-24 18:00:00 103 kg [facility] BMI 2019-12-24 18:00:00 36.65 kg/m2 [facility] Procedures Procedure Date / Time Performed Performing Clinician [facility] e REPORT OF PROCEDURE - 2019-12-31 15:30:02 Provider, Default [facility] SCAN [facility] RHYTHM STRIP - SCAN 2019-12-30 17:20:55 Provider, Default [facility] POCT-GLUCOSE METER 2019-12-30 07:35:00 Jennifer Florian [facility] HEPATIC FUNCTION PANEL 2019-12-30 04:33:[address] [facility] POCT-GLUCOSE METER 2019-12-29 22:05:00 Jennifer Florian [facility] POCT-GLUCOSE METER 2019-12-29 17:12:00 Jennifer Florian [facility] POCT-GLUCOSE METER 2019-12-29 13:21:00 Jennifer Florian [facility] UPPER ENDOSCOPY,BANDING 2019-12-29 12:30:00 Tony Centeno [facility] SIGMOIDOSCOPY 2019-12-29 12:30:00 Tony Centeno [facility] POCT-GLUCOSE METER 2019-12-29 11:57:00 Jennifer Florian [facility] REPORT OF PROCEDURE - 2019-12-29 11:44:37 Tony Centeno [facility] REPORT OF PROCEDURE - 2019-12-29 11:29:55 Tony Centeno [facility] POCT-GLUCOSE METER 2019-12-29 07:50:00 Jennifer Florian [facility] HEPATIC FUNCTION PANEL 2019-12-29 04:55:00 [place], [facility] PROTHROMBIN TIME/INR 2019-12-29 04:55:00 Jeanie, [facility] BASIC METABOLIC PANEL (7) 2019-12-29 04:55:00 Jennifer Florian [facility] CBC W/PLT COUNT & AUTO 2019-12-29 04:55:00 Jennifer Florian CH I [facility] POCT-GLUCOSE METER 2019-12-28 22:01:00 Jennifer Florian [facility] POCT-GLUCOSE METER 2019-12-28 09:20:00 Jennifer Florian [facility] HEPATIC FUNCTION PANEL 2019-12-28 05:21:00 Jennifer Florian CH I [facility] BASIC METABOLIC PANEL (7) 2019-12-28 05:21:00 Jennifer Florian [facility] CBC W/PLT COUNT & AUTO 2019-12-28 05:21:00 Jennifer Florian CH I [facility] (CELLAVISION MANUAL DIFF) 2019-12-28 05:21:00 Jennifer Florian [facility] POCT-GLUCOSE METER 2019-12-27 21:54:00 Jennifer Florian [facility] POCT-GLUCOSE METER 2019-12-27 16:55:00 Jennifer Florian [facility] CBC W/PLT COUNT & AUTO 2019-12-27 11:56:00 Jennifer Florian CH I [facility] POCT-GLUCOSE METER 2019-12-27 11:42:00 Jennifer Florian [facility] POCT-GLUCOSE METER 2019-12-27 07:48:00 Jennifer Florian [facility] HEPATIC FUNCTION PANEL 2019-12-27 04:00:00 Jennifer Florian CH I [facility] BASIC METABOLIC PANEL (7) 2019-12-27 04:00:00 Jennifer Florian [facility] POCT-GLUCOSE METER 2019-12-26 21:36:00 Jennifer Florian [facility] BLOOD CULTURE 2019-12-26 18:11:00 Jennifer Florian [facility] BLOOD CULTURE 2019-12-26 18:10:00 Jennifer Florian [facility] POCT-GLUCOSE METER 2019-12-26 17:36:00 Jennifer Florian [facility] POCT-GLUCOSE METER 2019-12-26 12:13:00 Jennifer Florian [facility] POCT-GLUCOSE METER 2019-12-26 07:38:00 Jennifer Florian [facility] BASIC METABOLIC PANEL (7) 2019-12-26 04:24:00 Jennifer Florian [facility] PROTHROMBIN TIME/INR 2019-12-26 04:24:00 Jennifer Florian [facility] HEPATIC FUNCTION PANEL 2019-12-26 04:24:00 Jennifer Florian CH, I [facility] VITAMIN B12 AND FOLATE 2019-12-26 04:24:00 Sandro Gay [facility] CBC W/PLT COUNT & AUTO 2019-12-26 04:24:00 Jennifer Florian CH, I [facility] POCT-GLUCOSE METER 2019-12-25 21:59:00 [facility]EMATOCRIT 2019-12-25 15:56:00 Jennifer Florian [facility] IRON, TIBC, % SAT. 2019-12-25 12:02:00 Sandro Gay [facility] (WITHOUT FERRITIN) [facility] FERRITIN 2019-12-25 12:02:00 Sandro Gay [facility] COMPREHENSIVE METABOLIC 2019-12-25 04:55:00 Compa [facility] CBC W/PLT COUNT & AUTO 2019-12-25 04:55:[address] [facility] POCT-GLUCOSE METER 2019-12-24 23:27:00 Compa [facility] XR CHEST 1 VIEW 2019-12-24 18:17:00 Compa [facility] PORTABLE/BEDSIDE Medical Center COMPREHENSIVE METABOLIC 2019-10-07 09:28:00 Ankur Dan [facility] CBC W/PLT COUNT & AUTO 2019-10-07 09:28:00 Ankur Dan [facility] BILIRUBIN, DIRECT 2019-10-07 09:28:00 Ankur Dan [facility] ALPHA FETOPROTEIN (AFP), 2019-10-07 09:28:00 Ankur Dan [facility] TUMOR MARKER [facility] PROTHROMBIN TIME/INR 2019-10-07 09:28:00 Ankur Dan [facility] PLATELET ESTIMATION 2019-10-07 09:28:00 Ankur Dan [facility] ALPHA FETOPROTEIN (AFP), 2019-07-10 00:00:[address] [facility] TUMOR MARKER [facility] CBC W/PLT COUNT & AUTO 2019-07-10 00:00:00 Nickie Yeh [facility] PROTHROMBIN TIME/INR 2019-07-10 00:00:00 Ruba [facility] COMPREHENSIVE METABOLIC 2019-07-10 00:00:00 [facility] PLATELET ESTIMATION 2019-07-10 00:00:00 Berenicelelosergio [facility] REPORT OF PROCEDURE - 2019-06-05 13:52:03 Provider, [facility] ENDOSCOPY SCAN Scanning [facility] CARDIAC CATH REPORT - 2019-06-05 13:52:01 Provider, [facility] SCAN Scanning [facility] VASCULAR DIAGRAM -SCAN 2019-06-05 13:51:59 Provider, [facility] R & L CATH / CORONARY 2019-06-04 09:46:00 Jaspal An [facility] ANGIOS / PCI [facility] STENT / CAROTID MCR - 2019-06-04 09:46:00 Jaspal An [facility] IP PROC ONLY [facility] BASIC METABOLIC PANEL (7) 2019-06-04 08:38:00 Jaspal An [facility] CBC W/PLT COUNT & AUTO 2019-06-04 08:38:00 Jaspal An [facility] MISCELLANEOUS LAB ORDER 2019-05-08 13:37:00 Ankur Dan [facility] BASIC METABOLIC PANEL (7) 2019-05-08 13:37:00 Ankur Dan [facility] HEPATIC FUNCTION PANEL 2019-05-08 13:37:00 Ankur Dan [facility] PROTHROMBIN TIME/INR 2019-05-08 13:37:00 Ankur Dan [facility] ALPHA FETOPROTEIN (AFP), 2019-05-08 13:37:00 Ankur Dan [facility] TUMOR MARKER [facility] CBC W/PLT COUNT & AUTO 2019-05-08 13:37:00 Ankur Dan [facility] BASIC METABOLIC PANEL (7) 2019-02-28 12:47:00 Ankur Dan [facility] HEPATIC FUNCTION PANEL 2019-02-28 12:47:00 Ankur Dan [facility] PROTHROMBIN TIME/INR 2019-02-28 12:47:00 Ankur Dan [facility] ALPHA FETOPROTEIN (AFP), 2019-02-28 12:47:00 Ankur Dan [facility] TUMOR MARKER [facility] CBC W/PLT COUNT & AUTO 2019-02-28 12:47:00 Ankur Dan [facility] DIFFERENTIAL [facility] Plan of Care Planned Activity Planned Date Details Comments Source Future Scheduled 2028-06-[address] [facility] - Test 00:00:00 malignant neoplasm of Medica l Center colon (procedure) [code = 894752716] Future Scheduled 2021-12-[address] [facility] - Test 00:00:00 (procedure) [code = Medical Center 06777991] Future Scheduled 2020-02-27 IMM Influenza Seasonal [facility] Test 00:00:00 Feb to July (>/= 19 yrs) [code = IMM Influenza Seasonal Feb to July (>/= 19 yrs)] Future Scheduled 2020-01-28 INFLUENZA VACCINE (#1) [facility] Test 00:00:00 [code = INFLUENZA Medical Ce nter VACCINE (#1)] Future Scheduled 2019-02-[address] [facility] - [...] PPSV23)] Future Scheduled 2006 [facility] 00:[facility]:00 malignant neoplasm of colon (procedure) [code = 796656955] Encounters Start End Encounter Admission Attending Care Care Encounter Source Date/Time Date/Time Type Type Clinicians Facility Department ID 2019-09-11 2019-09-11 Telephone DON Shabazz [id number] 00:00:00 00:00:00 Peter Kenefic [id number] [place] [id number] Professio [phone] [address] 2019-02-08 2019-02-08 Orders Doctor MONAE [id number] 00:00:00 00:00:00 Only Unassigned, TOY [id number] [facility] [id number] [id number] [id number] 2019-01-31 2019-01-31 Orders Doctor MONAE [id number] 00:00:00 00:00:00 Only Unassigned, TOY [id number] [facility] [id number] [id number] [id number] 2019-01-23 2019-01-23 Telephone Jase Rod [facility] [id number] 00:00:00 00:00:00 C Ly [id number] [place] [id number] Professio [phone] [address] 2019-01-21 2019-01-21 Office Jase Rod [facility] [id number] 15:52:08 16:26:09 Visit C Kenefic [id number] [place] [id number] Professio [id number] [address] 2019-01-17 2019-01-17 Orders Doctor MONAE [id number] 00:00:00 00:00:00 Only Unassigned, TOY [id number] [facility] [id number] [id number] [id number] 2019-01-02 2019-01-02 Orders Doctor MONAE [id number] 00:00:00 00:00:00 Only Unassigned, TOY [id number] [facility] 4.2.7.2.686 [id number] [id number] 2018-12-28 2018-12-28 Orders Doctor MONAE [id number] 00:00:00 00:00:00 Only Unassigned, TOY [id number] [facility] [id number] [id number] [id number] 2016-10-19 2016-10-19 Orders Doctor MONAE [id number] 00:00:00 00:00:00 Only Unassigned, TOY [id number] [facility] [id number] [id number] [id number] Results Test Description Test Time Test Comments Results Result Comments Source Blood Culture - Routine (Right Venipuncture) 2019-12-31 20:0 0:00 Test Item Value Reference Range Interpretation Comme nts Result (test code = 6463-4) No growth in 5 days [id number] 20:00:00 Test Item Value Reference Range Interpretation Comments CULTURE (BEAKER) (test No growth in 5 days code = 1095) BLOOD [id number] 20:00:00 Test Item Value Reference Range Interpretation Comments CULTURE (BEAKER) (test No growth in 5 days code = 1095) POC-Glucose [id number] 07:47:00 Test Item Value Reference Range Interpretation Comments POC-Glucose Meter (test 121 mg/dL 70-110 H : TE STED AT [facility] code = 1538) [address] [facility], 770 30: Commercial Diver/Techni zaire ID = [id number] for RADHA MURGUIA Lab Interpretation (test Abnormal code = 46081-7) [facility] [id number] 07:47:00 Test Item Value Reference Range Interpretation Comments POC-GLUCOSE METER 121 mg/dL 70-110 H : TESTED A T [facility] 6720 (BEAKER) (test code = NICOLE Arita [facility], 1538) [address]: Commercial Diver/Techni zaire ID = [id number] for RADHA GARVEY Hepatic function [id number] 07:24:00 Test Item Value Reference Range Interpretation Comments Protein, Total (test code 5.8 6.0- 8.3 gm/dL L = 2885-2) Albumin (test code = 1.9 g/dL 3.5-5 L 61851-8) Total Bilirubin (test 2.6 mg/dL 0.2-1.2 H code = 1975-2) Bilirubin, Direct (test 1.6 mg/dL 0.1-0.5 H code = 1968-7) Alkaline Phosphatase 142 U/L 40-150 (test code = 6768-6) AST (test code = 1920-8) 57 U/L 5-34 H ALT (test code = 1742-6) 25 U/L 6-55 MADALYN (test code = MADALYN) Commercial Diver ID - KRISHNA Isaac slightly icteric Lab Interpretation (test Abnormal code = 99662-9) [facility] [id number] 07:24:00 Test Item Value Reference Range Interpretation Comments TOTAL PROTEIN (BEAKER) (test code = 5.8 gm/dL 6.0-8.3 L 770) ALBUMIN (BEAKER) (test code = 1145) 1.9 g/dL 3.5-5.0 L BILIRUBIN TOTAL (BEAKER) (test code 2.6 mg/dL 0.2-1.2 H = 377) BILIRUBIN DIRECT (BEAKER) (test 1.6 mg/dL 0.1-0.5 H code = 706) ALKALINE PHOSPHATASE (BEAKER) (test 142 U/L 40-150 code = 346) AST (SGOT) (BEAKER) (test code = 57 U/L 5-34 H 353) ALT (SGPT) (BEAKER) (test code = 25 U/L 6-55 347) Commercial Diver ID - KRISHNA Isaac slightly ictericPOCT-GLUCOSE [id number] 22:18:00 Test Item Value Reference Range Interpretation Comments POC-GLUCOSE METER 143 mg/dL 70-110 H : TESTED A T [facility] 6720 (BEAKER) (test code = [facility], 1538) 34959: Commercial Diver/Techni zaire ID = [id number] for CA RBAJAL, ANU POCT-GLUCOSE [id number] 17:24:00 Test Item Value Reference Range Interpretation Comments POC-GLUCOSE METER 214 mg/dL 70-110 H : TESTED A T [facility] 6720 (BEAKER) (test code = [facility], 1538) 13353: Commercial Diver/Techni zaire ID = [id number] for SA NTOS, WADE POCT-GLUCOSE [id number] 13:32:00 Test Item Value Reference Range Interpretation Comments POC-GLUCOSE METER 127 mg/dL 70-110 H : TESTED A T [facility] 6720 (BEAKER) (test code = [facility], 1538) 31857: Commercial Diver/Techni zaire ID = [id number] for WADE MCMULLEN POCT-GLUCOSE [id number] 12:08:00 Test Item Value Reference Range Interpretation Comments POC-GLUCOSE METER 124 mg/dL 70-110 H : TESTED A T [facility] 6720 (BEAKER) (test code = [facility], 1538) 86974: Commercial Diver/Techni zaire ID = [id number] for CHARI RAZO POCT-GLUCOSE [id number] 08:16:00 Test Item Value Reference Range Interpretation Comments POC-GLUCOSE METER 117 mg/dL 70-110 H : TESTED A T [facility] 6720 (BEAKER) (test code = [facility], 1538) 14718: Commercial Diver/Techni zaire ID = [id number] for WADE MCMULLEN Basic Metabolic [id number] 06:13:00 Test Item Value Reference Range Interpretation Comments Sodium (test code = 129 meq/L 136-145 L 2951-2) Potassium (test code 4.0 meq/L 3.5-5.1 = 2823-3) Chloride (test code = 102 meq/L 98-107 2075-0) CO2 (test code = 24 meq/L 22-29 2028-9) BUN (test code = 9 mg/dL 7-21 3094-0) Creatinine (test code 0.68 mg/dL 0.57-1.25 = 2160-0) Glucose (test code = 123 mg/dL 70-105 H 2345-7) Calcium (test code = 7.2 mg/dL 8.4-10.2 L 93267-3) EGFR (test code = 118 mL/min/1.73 [place] [address]-9) NOT ACCURATE CREATININE CLEARANCE IN PREDICTING GLOMERULAR FILTRATION RATE . ESTIMATED GFR I S NOT APPLICABLE FOR DIALYSIS PATIENTS. MADALYN (test code = MADALYN) Commercial Diver ID - PIAYA LSpecimen slightly icteric Lab Interpretation Abnormal (test code = 42111-0) [facility] [id number] 06:13:00 Test Item Value Reference Range Interpretation Comments SODIUM (BEAKER) 129 meq/L 136-145 L (test code = 381) POTASSIUM (BEAKER) 4.0 meq/L 3.5-5.1 (test code = 379) CHLORIDE (BEAKER) 102 meq/L 98-107 (test code = 382) CO2 (BEAKER) (test 24 meq/L 22-29 code = 355) BLOOD UREA NITROGEN 9 mg/dL 7-21 (BEAKER) (test code = 354) CREATININE (BEAKER) 0.68 mg/dL 0.57-1.25 (test code = 358) GLUCOSE RANDOM 123 mg/dL 70-105 H (BEAKER) (test code = 652) CALCIUM (BEAKER) 7.2 mg/dL 8.4-10.2 L (test code = 697) EGFR (BEAKER) (test 118 mL/min/1.73 ESTIM ATED GFR IS code = 1092) sq m NOT ACCURATE CREATININE CLEARANCE IN PREDICTING GLOMERULAR FILTRATION RATE . ESTIMATED GFR I S NOT APPLICABLE FOR DIALYSIS PATIEN TS. Commercial Diver ID - ALEJANDRODAMIAN MEGHANNpecimekaz slightly ictericHEPATIC FUNCTION [id number] 06:13:00 Test Item Value Reference Range Interpretation Comments TOTAL PROTEIN (BEAKER) (test code = 5.6 gm/dL 6.0-8.3 L 770) ALBUMIN (BEAKER) (test code = 1145) 1.8 g/dL 3.5-5.0 L BILIRUBIN TOTAL (BEAKER) (test code 2.2 mg/dL 0.2-1.2 H = 377) BILIRUBIN DIRECT (BEAKER) (test 1.4 mg/dL 0.1-0.5 H code = 706) ALKALINE PHOSPHATASE (BEAKER) (test 144 U/L 40-150 code = 346) AST (SGOT) (BEAKER) (test code = 70 U/L 5-34 H 353) ALT (SGPT) (BEAKER) (test code = 27 U/L 6-55 347) Commercial Diver ID - ALEJANDRODAMIAN Poncho slightly ictericProthrombin time/[id number] 05:46:00 Test Item Value Reference Range Interpretation Comments Protime (test code = 19.7 11.9- 14.2 H 5902-2) seconds INR (test code = 1.7 <=5.9 6301-6) MADALYN (test code = MADALYN) Effective 10/24/2018: PT Reference Range ChangeNew: 11.9-14.2 Previous: 11.7-14.7 RECOMMENDED COUMADIN/WARFARIN INR THERAPY RANGESSTANDARD DOSE: 2.0-3.0 Includes: PROPHYLAXIS for venous thrombosis, systemic embolization; TREATMENT for venous thrombosis and/or pulmonary embolus.HIGH RISK: Target INR is 2.5-3.5 for patients wiht mechanical heart valves. Lab Interpretation Abnormal (test code = 11252-6) [facility]/[id number] 05:46:00 Test Item Value Reference Range Interpretation Comments PROTIME (BEAKER) (test code = 19.7 seconds 11.9-14.2 H 759) INR (BEAKER) (test code = 370) 1.7 <=5.9 Effective 10/24/2018: PT Reference Range ChangeNew: 11.9-14.2 Previous: 11.7- 14.7RECOMMENDED COUMADIN/WARFARIN INR THERAPY RANGESSTANDARD DOSE: 2.0-3.0 Includes: PROPHYLAXIS for venous thrombosis, systemic embolization; TREATMENT for venous thrombosis and/or pulmonary embolus.HIGH RISK: Target INR is2.5-3.5 for patients wiht mechanical heart valves.CBC with platelet count + automated [id number] 05:21:00 Test Item Value Reference Range Interpretation Comments WBC (test code = 6690-2) 8.0 3.5- 10.5 K/L RBC (test code = 789-8) 3.16 4.63- 6.08 M/L L MCHC (test code = 786-4) 30.4 32.3- 36.5 GM/DL L Hematocrit (test code = 4544-3) 24.0 % 40.1-51 L MCV (test code = 787-2) 75.9 fL 79-92.2 L MCH (test code = 785-6) 23.1 pg 25.7-32.2 L RDW (test code = 788-0) 23.2 % 11.6-14.4 H Platelets (test code = 777-3) 90 150- 450 K/CU MM L MPV (test code = 34487-7) 9.9 fL 9.4-12.4 nRBC (test code = 413) 0 0- 0 /100 WBC % Neutros (test code = 429) 55 % % Lymphs (test code = 430) 22 % % Monos (test code = 431) 19 % % Eos (test code = 432) 1 % % Baso (test code = 437) 0 % # Neutros (test code = 670) 4.42 1.78- 5.38 K/L # Lymphs (test code = 414) 1.78 1.32- 3.57 K/L # Monos (test code = 415) 1.49 0.30- 0.82 K/L H # Eos (test code = 416) 0.06 0.04- 0.54 K/L # Baso (test code = 417) 0.02 0.01- 0.08 K/L Immature Granulocytes-Relative 2 % 0-1 H (test code = 2801) Lab Interpretation (test code = Abnormal 47318-5) [facility] W/PLT COUNT & AUTO [id number] 05:21:00 Test Item Value Reference Range Interpretation Comments WHITE BLOOD CELL COUNT (BEAKER) 8.0 K/ L 3.5-10.5 (test code = 775) RED BLOOD CELL COUNT (BEAKER) 3.16 M/ L 4.63-6.08 L (test code = 761) HEMOGLOBIN (BEAKER) (test code = 7.3 GM/DL 13.7-17.5 L 410) HEMATOCRIT (BEAKER) (test code = 24.0 % 40.1-51.0 L 411) MEAN CORPUSCULAR VOLUME (BEAKER) 75.9 fL 79.0-92.2 L (test code = 753) MEAN CORPUSCULAR HEMOGLOBIN 23.1 pg 25.7-32.2 L (BEAKER) (test code = 751) MEAN CORPUSCULAR HEMOGLOBIN CONC 30.4 GM/DL 32.3-36.5 L (BEAKER) (test code = 752) RED CELL DISTRIBUTION WIDTH 23.2 % 11.6-14.4 H (BEAKER) (test code = 412) PLATELET COUNT (BEAKER) (test code 90 K/CU MM 150-450 L = 756) MEAN PLATELET VOLUME (BEAKER) 9.9 fL 9.4-12.4 (test code = 754) NUCLEATED RED BLOOD CELLS (BEAKER) 0 /100 WBC 0-0 (test code = 413) NEUTROPHILS RELATIVE PERCENT 55 % (BEAKER) (test code = 429) LYMPHOCYTES RELATIVE PERCENT 22 % (BEAKER) (test code = 430) MONOCYTES RELATIVE PERCENT 19 % (BEAKER) (test code = 431) EOSINOPHILS RELATIVE PERCENT 1 % (BEAKER) (test code = 432) BASOPHILS RELATIVE PERCENT 0 % (BEAKER) (test code = 437) NEUTROPHILS ABSOLUTE COUNT 4.42 K/ L 1.78-5.38 (BEAKER) (test code = 670) LYMPHOCYTES ABSOLUTE COUNT 1.78 K/ L 1.32-3.57 (BEAKER) (test code = 414) MONOCYTES ABSOLUTE COUNT (BEAKER) 1.49 K/ L 0.30-0.82 H (test code = 415) EOSINOPHILS ABSOLUTE COUNT 0.06 K/ L 0.04-0.54 (BEAKER) (test code = 416) BASOPHILS ABSOLUTE COUNT (BEAKER) 0.02 K/ L 0.01-0.08 (test code = 417) IMMATURE GRANULOCYTES-RELATIVE 2 % 0-1 H PERCENT (BEAKER) (test code = 2801) POCT-GLUCOSE [id number] 22:38:00 Test Item Value Reference Range Interpretation Comments POC-GLUCOSE METER 181 mg/dL 70-110 H : TESTED A T [facility] [address] (BEAKER) (test code = NICOLE Arita [facility], 1538) [address]: Commercial Diver/Techni zaire ID = [id number] for RON BLANCO Manual [id number] 15:15:00 Test Item Value Reference Range Interpretation Comments % Neutros (test code = 81 % 2815) % Lymphs (test code = 3 % 2816) % Monos (test code = 10 % 2817) % Eos (test code = 2819) 2 % % Baso (test code = 2820) 1 % % Bands (test code = 3 % 0-10 2825) # Neutros (test code = 6.89 K/ul 1.78-5.38 H 2830) # Lymphs (test code = 0.26 K/ul 1.32-3.57 L 2831) # Monos (test code = 0.85 K/uL 0.3-0.82 H 2832) # Eos (test code = 2834) 0.17 K/uL 0.04-0.54 # Baso (test code = 2835) 0.09 K/uL 0.01-0.08 H # Bands (test code = 0.26 K/uL 0-0.8 2840) Total Counted (test code 100 = 1351) WBC Morphology (test code Normal = 487) Platelet Morphology (test Normal code = 486) Polychromasia (test code 1+ few = 478) Hypochromia (test code = 2+ moderate 963) Anisocytosis (test code = 2+ moderate 961) Microcytes (test code = 2+ moderate 965) Macrocytes (test code = 1+ few 964) Poikilocytes (test code = 2+ moderate 966) Target Cells (test code = 1+ few 480) Schistocytes (test code = 1+ few 765) Ovalocytes (test code = 1+ few 477) Tear Drop Cells (test 1+ few code = 481) [place] Cells (test code = 1+ few 474) Artifact (test code = Present 3432) Platelet Conc (test code Decreased = 3438) MADALYN (test code = MADALYN) Commercial Diver ID - Nima Villafuerte comments: Slide comments: Lab Interpretation (test Abnormal code = 62214-4) [facility](CELLAVISION MANUAL DIFF)[id number] 15:15:00 Test Item Value Reference Range Interpretation Comments NEUTROPHILS - REL 81 % (CELLAVISION)(BEAKER) (test code = 2816) LYMPHOCYTES - REL 3 % (CELLAVISION)(BEAKER) (test code = 2817) MONOCYTES - REL 10 % (CELLAVISION)(BEAKER) (test code = 2818) EOSINOPHILS - REL 2 % (CELLAVISION)(BEAKER) (test code = 2819) BASOPHILS - REL 1 % (CELLAVISION)(BEAKER) (test code = 2820) BANDS - REL (CELLAVISION)(BEAKER) 3 % 0-10 (test code = 2826) NEUTROPHILS - ABS 6.89 K/ul 1.78-5.38 H (CELLAVISION)(BEAKER) (test code = 2830) LYMPHOCYTES - ABS 0.26 K/ul 1.32-3.57 L (CELLAVISION)(BEAKER) (test code = 2831) MONOCYTES - ABS 0.85 K/uL 0.30-0.82 H (CELLAVISION)(BEAKER) (test code = 2832) EOSINOPHILS - ABS 0.17 K/uL 0.04-0.54 (CELLAVISION)(BEAKER) (test code = 2834) BASOPHILS - ABS 0.09 K/uL 0.01-0.08 H (CELLAVISION)(BEAKER) (test code = 2835) BANDS - ABS (CELLAVISION)(BEAKER) 0.26 K/uL 0.00-0.80 (test code = 2840) TOTAL COUNTED (BEAKER) (test code 100 = 1351) WBC MORPHOLOGY (BEAKER) (test Normal code = 487) PLT MORPHOLOGY (BEAKER) (test Normal code = 486) POLYCHROMATOPHILLIC RBCS(BEAKER) 1+ few (test code = 478) HYPOCHROMIA (BEAKER) (test code = 2+ moderate 963) ANISOCYTOSIS (BEAKER) (test code 2+ moderate = 961) MICROCYTES (BEAKER) (test code = 2+ moderate 965) MACROCYTES (BEAKER) (test code = 1+ few 964) POIKILOCYTES (BEAKER) (test code 2+ moderate = 966) TARGET CELLS (BEAKER) (test code 1+ few = 480) SCHISTOCYTES (BEAKER) (test code 1+ few = 765) OVALOCYTES (BEAKER) (test code = 1+ few 477) TEAR DROP CELLS (BEAKER) (test 1+ few code = 481) LESLIE CELLS (BEAKER) (test code = 1+ few 474) ARTIFACT (CELLAVISION)(BEAKER) Present (test code = 3432) PLATELET CONCENTRATION Decreased (CELLAVISION)(BEAKER) (test code = 3438) Commercial Diver ID - Nima Villafuerte comments: Slide comments:CBC W/PLT COUNT & AUTO [id number] 15:11:00 Test Item Value Reference Range Interpretation Comments WHITE BLOOD CELL COUNT (BEAKER) 8.5 K/ L 3.5-10.5 (test code = 775) RED BLOOD CELL COUNT (BEAKER) 3.25 M/ L 4.63-6.08 L (test code = 761) HEMOGLOBIN (BEAKER) (test code = 7.5 GM/DL 13.7-17.5 L 410) HEMATOCRIT (BEAKER) (test code = 25.0 % 40.1-51.0 L 411) MEAN CORPUSCULAR VOLUME (BEAKER) 76.9 fL 79.0-92.2 L (test code = 753) MEAN CORPUSCULAR HEMOGLOBIN 23.1 pg 25.7-32.2 L (BEAKER) (test code = 751) MEAN CORPUSCULAR HEMOGLOBIN CONC 30.0 GM/DL 32.3-36.5 L (BEAKER) (test code = 752) RED CELL DISTRIBUTION WIDTH 22.8 % 11.6-14.4 H (BEAKER) (test code = 412) PLATELET COUNT (BEAKER) (test code 97 K/CU MM 150-450 L = 756) MEAN PLATELET VOLUME (BEAKER) 9.4 fL 9.4-12.4 (test code = 754) NUCLEATED RED BLOOD CELLS (BEAKER) 0 /100 WBC 0-0 (test code = 413) NEUTROPHILS RELATIVE PERCENT 52 % (BEAKER) (test code = 429) LYMPHOCYTES RELATIVE PERCENT 26 % (BEAKER) (test code = 430) MONOCYTES RELATIVE PERCENT 19 % (BEAKER) (test code = 431) EOSINOPHILS RELATIVE PERCENT 1 % (BEAKER) (test code = 432) BASOPHILS RELATIVE PERCENT 0 % (BEAKER) (test code = 437) NEUTROPHILS ABSOLUTE COUNT 4.40 K/ L 1.78-5.38 (BEAKER) (test code = 670) LYMPHOCYTES ABSOLUTE COUNT 2.17 K/ L 1.32-3.57 (BEAKER) (test code = 414) MONOCYTES ABSOLUTE COUNT (BEAKER) 1.60 K/ L 0.30-0.82 H (test code = 415) EOSINOPHILS ABSOLUTE COUNT 0.07 K/ L 0.04-0.54 (BEAKER) (test code = 416) BASOPHILS ABSOLUTE COUNT (BEAKER) 0.03 K/ L 0.01-0.08 (test code = 417) IMMATURE GRANULOCYTES-RELATIVE 3 % 0-1 H PERCENT (BEAKER) (test code = 2808) POCT-GLUCOSE [id number] 10:15:00 Test Item Value Reference Range Interpretation Comments POC-GLUCOSE METER 178 mg/dL 70-110 H : TESTED A T [facility] 6720 (BEAKER) (test code = [facility], 1538) [address]: Commercial Diver/Techni zaire ID = [id number] for DELPHINE JUAREZ POCT-GLUCOSE [id number] 09:08:00 Test Item Value Reference Range Interpretation Comments POC-GLUCOSE METER 167 mg/dL 70-110 H : TESTED A T [facility] 6720 (BEAKER) (test code = [facility], 1538) [address]: Commercial Diver/Techni zaire ID = [id number] for WONG COWAN BASIC METABOLIC [id number] 07:06:00 Test Item Value Reference Range Interpretation Comments SODIUM (BEAKER) 128 meq/L 136-145 L (test code = 381) POTASSIUM (BEAKER) 4.0 meq/L 3.5-5.1 (test code = 379) CHLORIDE (BEAKER) 101 meq/L 98-107 (test code = 382) CO2 (BEAKER) (test 24 meq/L 22-29 code = 355) BLOOD UREA NITROGEN 10 mg/dL 7-21 (BEAKER) (test code = 354) CREATININE (BEAKER) 0.69 mg/dL 0.57-1.25 (test code = 358) GLUCOSE RANDOM 140 mg/dL 70-105 H (BEAKER) (test code = 652) CALCIUM (BEAKER) 7.1 mg/dL 8.4-10.2 L (test code = 697) EGFR (BEAKER) (test 116 mL/min/1.73 ESTIM ATED GFR IS code = 1092) sq m NOT ACCURATE CREATININE CLEARANCE IN PREDICTING GLOMERULAR FILTRATION RATE . ESTIMATED GFR I S NOT APPLICABLE FOR DIALYSIS PATIEN TS. Commercial Diver ID - PIAYA LSpecimen slightly ictericHEPATIC FUNCTION [id number] 07:06:00 Test Item Value Reference Range Interpretation Comments TOTAL PROTEIN (BEAKER) (test code = 5.8 gm/dL 6.0-8.3 L 770) ALBUMIN (BEAKER) (test code = 1145) 1.9 g/dL 3.5-5.0 L BILIRUBIN TOTAL (BEAKER) (test code 2.2 mg/dL 0.2-1.2 H = 377) BILIRUBIN DIRECT (BEAKER) (test 1.4 mg/dL 0.1-0.5 H code = 706) ALKALINE PHOSPHATASE (BEAKER) (test 114 U/L 40-150 code = 346) AST (SGOT) (BEAKER) (test code = 45 U/L 5-34 H 353) ALT (SGPT) (BEAKER) (test code = 20 U/L 6-55 347) Commercial Diver ID - KRISHNA Mcintyreimen slightly ictericPOCT-GLUCOSE [id number] 22:05:00 Test Item Value Reference Range Interpretation Comments POC-GLUCOSE METER 216 mg/dL 70-110 H : TESTED A T [facility] 6720 (BEAKER) (test code = [facility], 1538) [address]: Commercial Diver/Techni zaire ID = [id number] for DAVID TALBERT POCT-GLUCOSE [id number] 17:07:00 Test Item Value Reference Range Interpretation Comments POC-GLUCOSE METER 244 mg/dL 70-110 H : TESTED A T [facility] 6720 (BEAKER) (test code = [facility], 1538) [address]: Commercial Diver/Techni zaire ID = [id number] for IB RAHIM, SERKALEM CBC W/PLT COUNT & AUTO [id number] 12:15:00 Test Item Value Reference Range Interpretation Comments WHITE BLOOD CELL COUNT (BEAKER) 6.4 K/ L 3.5-10.5 (test code = 775) RED BLOOD CELL COUNT (BEAKER) 3.15 M/ L 4.63-6.08 L (test code = 761) HEMOGLOBIN (BEAKER) (test code = 7.5 GM/DL 13.7-17.5 L 410) HEMATOCRIT (BEAKER) (test code = 24.3 % 40.1-51.0 L 411) MEAN CORPUSCULAR VOLUME (BEAKER) 77.1 fL 79.0-92.2 L (test code = 753) MEAN CORPUSCULAR HEMOGLOBIN 23.8 pg 25.7-32.2 L (BEAKER) (test code = 751) MEAN CORPUSCULAR HEMOGLOBIN CONC 30.9 GM/DL 32.3-36.5 L (BEAKER) (test code = 752) RED CELL DISTRIBUTION WIDTH 22.7 % 11.6-14.4 H (BEAKER) (test code = 412) PLATELET COUNT (BEAKER) (test code 81 K/CU MM 150-450 L = 756) MEAN PLATELET VOLUME (BEAKER) 8.7 fL 9.4-12.4 L (test code = 754) NUCLEATED RED BLOOD CELLS (BEAKER) 1 /100 WBC 0-0 H (test code = 413) NEUTROPHILS RELATIVE PERCENT 54 % (BEAKER) (test code = 429) LYMPHOCYTES RELATIVE PERCENT 22 % (BEAKER) (test code = 430) MONOCYTES RELATIVE PERCENT 20 % (BEAKER) (test code = 431) EOSINOPHILS RELATIVE PERCENT 1 % (BEAKER) (test code = 432) BASOPHILS RELATIVE PERCENT 0 % (BEAKER) (test code = 437) NEUTROPHILS ABSOLUTE COUNT 3.47 K/ L 1.78-5.38 (BEAKER) (test code = 670) LYMPHOCYTES ABSOLUTE COUNT 1.37 K/ L 1.32-3.57 (BEAKER) (test code = 414) MONOCYTES ABSOLUTE COUNT (BEAKER) 1.29 K/ L 0.30-0.82 H (test code = 415) EOSINOPHILS ABSOLUTE COUNT 0.07 K/ L 0.04-0.54 (BEAKER) (test code = 416) BASOPHILS ABSOLUTE COUNT (BEAKER) 0.01 K/ L 0.01-0.08 (test code = 417) IMMATURE GRANULOCYTES-RELATIVE 3 % 0-1 H PERCENT (BEAKER) (test code = 2801) POCT-GLUCOSE [id number] 11:54:00 Test Item Value Reference Range Interpretation Comments POC-GLUCOSE METER 226 mg/dL 70-110 H : TESTED A T [facility] 67[address] (BEAKER) (test code = [place], 1538) [address]: Commercial Diver/Techni zaire ID = [id number] for IB NAIDA TOLBERTM BASIC METABOLIC [id number] 08:18:00 Test Item Value Reference Range Interpretation Comments SODIUM (BEAKER) 131 meq/L 136-145 L (test code = 381) POTASSIUM (BEAKER) 4.3 meq/L 3.5-5.1 (test code = 379) CHLORIDE (BEAKER) 102 meq/L 98-107 (test code = 382) CO2 (BEAKER) (test 26 meq/L 22-29 code = 355) BLOOD UREA NITROGEN 16 mg/dL 7-21 (BEAKER) (test code = 354) CREATININE (BEAKER) 0.84 mg/dL 0.57-1.25 (test code = 358) GLUCOSE RANDOM 187 mg/dL 70-105 H (BEAKER) (test code = 652) CALCIUM (BEAKER) 7.0 mg/dL 8.4-10.2 L (test code = 697) EGFR (BEAKER) (test 92 mL/min/1.73 ESTIMA TETE GFR IS code = 1092) sq m NOT ACCURATE CREATININE CLEARANCE IN PREDICTING GLOMERULAR FILTRATION RATE . ESTIMATED GFR I S NOT APPLICABLE FOR DIALYSIS PATIEN TS. Commercial Diver ID - NTPPOCT-GLUCOSE [id number] 08:07:00 Test Item Value Reference Range Interpretation Comments POC-GLUCOSE METER 166 mg/dL 70-110 H : TESTED A T [facility] 6720 ([employer] [place]) (test code = [employer], 1531) [address]: Commercial Diver/Techni zaire ID = [id number] for IB RAHIM, SERGRAHAMLEM HEPATIC FUNCTION [id number] 05:05:00 Test Item Value Reference Range Interpretation Comments TOTAL PROTEIN (BEAKER) (test code = 5.7 gm/dL 6.0-8.3 L 770) ALBUMIN (BEAKER) (test code = 1145) 1.8 g/dL 3.5-5.0 L BILIRUBIN TOTAL (BEAKER) (test code 2.1 mg/dL 0.2-1.2 H = 377) BILIRUBIN DIRECT (BEAKER) (test 1.3 mg/dL 0.1-0.5 H code = 706) ALKALINE PHOSPHATASE (BEAKER) (test 108 U/L 40-150 code = 346) AST (SGOT) (BEAKER) (test code = 41 U/L 5-34 H 353) ALT (SGPT) (BEAKER) (test code = 19 U/L 6-55 347) Commercial Diver ID - EDASISpecimekaz calix ictericPOCT-GLUCOSE [id number] 17:47:00 Test Item Value Reference Range Interpretation Comments POC-GLUCOSE METER 222 mg/dL 70-110 H : TESTED A T [facility] 6720 (BEAKER) (test code = [employer], 1538) 77[address]: Commercial Diver/Techni zaire ID = [id number] for BRAXTON MORAN POCT-GLUCOSE [id number] 12:25:00 Test Item Value Reference Range Interpretation Comments POC-GLUCOSE METER 311 mg/dL 70-110 H : TESTED A T [facility] 6720 (BEAKER) (test code = NICOLE Arit[place], 1538) 114[address]: Commercial Diver/Techni zaire ID = [id number] for BRAXTON MORAN POCT-GLUCOSE [id number] 07:49:00 Test Item Value Reference Range Interpretation Comments POC-GLUCOSE METER 190 mg/dL 70-110 H : TESTED A T [facility] 6720 (BEAKER) (test code = [facility], 1538) [address]: Commercial Diver/Techni zaire ID = [id number] for BRAXTON MORAN Vitamin B12 and [id number] 06:11:00 Test Item Value Reference Range Interpretation Comments Vitamin B12 (test code = 873 pg/mL 213-816 H 2132-9) Folate (test code = 12.30 ng/mL >=7.00 2284-8) MADALYN (test code = MADALYN) Commercial Diver ID - EDASI Lab Interpretation (test Abnormal code = 36803-0) [facility] AND [id number] 06:11:00 Test Item Value Reference Range Interpretation Comments VITAMIN B12 (BEAKER) (test code = 873 pg/mL 213-816 H 774) FOLATE (BEAKER) (test code = 362) 12.30 ng/mL >=7.00 Commercial Diver ID - EDASIBASIC METABOLIC [id number] 05:21:00 Test Item Value Reference Range Interpretation Comments SODIUM (BEAKER) 129 meq/L 136-145 L (test code = 381) POTASSIUM (BEAKER) 4.5 meq/L 3.5-5.1 (test code = 379) CHLORIDE (BEAKER) 101 meq/L 98-107 (test code = 382) CO2 (BEAKER) (test 25 meq/L 22-29 code = 355) BLOOD UREA NITROGEN 18 mg/dL 7-21 (BEAKER) (test code = 354) CREATININE (BEAKER) 0.88 mg/dL 0.57-1.25 (test code = 358) GLUCOSE RANDOM 227 mg/dL 70-105 H (BEAKER) (test code = 652) CALCIUM (BEAKER) 7.1 mg/dL 8.4-10.2 L (test code = 697) EGFR (BEAKER) (test 87 mL/min/1.73 ESTIMA TETE GFR IS code = 1092) sq m NOT ACCURATE CREATININE CLEARANCE IN PREDICTING GLOMERULAR FILTRATION RATE . ESTIMATED GFR I S NOT APPLICABLE FOR DIALYSIS PATIEN TS. Commercial Diver ID - EDASIHEPATIC FUNCTION [id number] 05:21:00 Test Item Value Reference Range Interpretation Comments TOTAL PROTEIN (BEAKER) (test code = 5.7 gm/dL 6.0-8.3 L 770) ALBUMIN (BEAKER) (test code = 1145) 1.8 g/dL 3.5-5.0 L BILIRUBIN TOTAL (BEAKER) (test code 1.8 mg/dL 0.2-1.2 H = 377) BILIRUBIN DIRECT (BEAKER) (test 1.2 mg/dL 0.1-0.5 H code = 706) ALKALINE PHOSPHATASE (BEAKER) (test 107 U/L 40-150 code = 346) AST (SGOT) (BEAKER) (test code = 35 U/L 5-34 H 353) ALT (SGPT) (BEAKER) (test code = 19 U/L 6-55 347) Commercial Diver ID - EDASICBC W/PLT COUNT & AUTO [id number] 05:12:00 Test Item Value Reference Range Interpretation Comments WHITE BLOOD CELL COUNT (BEAKER) 9.1 K/ L 3.5-10.5 (test code = 775) RED BLOOD CELL COUNT (BEAKER) 3.28 M/ L 4.63-6.08 L (test code = 761) HEMOGLOBIN (BEAKER) (test code = 7.5 GM/DL 13.7-17.5 L 410) HEMATOCRIT (BEAKER) (test code = 25.0 % 40.1-51.0 L 411) MEAN CORPUSCULAR VOLUME (BEAKER) 76.2 fL 79.0-92.2 L (test code = 753) MEAN CORPUSCULAR HEMOGLOBIN 22.9 pg 25.7-32.2 L (BEAKER) (test code = 751) MEAN CORPUSCULAR HEMOGLOBIN CONC 30.0 GM/DL 32.3-36.5 L (BEAKER) (test code = 752) RED CELL DISTRIBUTION WIDTH 22.0 % 11.6-14.4 H (BEAKER) (test code = 412) PLATELET COUNT (BEAKER) (test 107 K/CU MM 150-450 L code = 756) MEAN PLATELET VOLUME (BEAKER) 9.3 fL 9.4-12.4 L (test code = 754) NUCLEATED RED BLOOD CELLS 0 /100 WBC 0-0 (BEAKER) (test code = 413) NEUTROPHILS RELATIVE PERCENT 64 % (BEAKER) (test code = 429) LYMPHOCYTES RELATIVE PERCENT 18 % (BEAKER) (test code = 430) MONOCYTES RELATIVE PERCENT 17 % (BEAKER) (test code = 431) EOSINOPHILS RELATIVE PERCENT 0 % (BEAKER) (test code = 432) BASOPHILS RELATIVE PERCENT 0 % (BEAKER) (test code = 437) NEUTROPHILS ABSOLUTE COUNT 5.78 K/ L 1.78-5.38 H (BEAKER) (test code = 670) LYMPHOCYTES ABSOLUTE COUNT 1.67 K/ L 1.32-3.57 (BEAKER) (test code = 414) MONOCYTES ABSOLUTE COUNT (BEAKER) 1.50 K/ L 0.30-0.82 H (test code = 415) EOSINOPHILS ABSOLUTE COUNT 0.00 K/ L 0.04-0.54 L (BEAKER) (test code = 416) BASOPHILS ABSOLUTE COUNT (BEAKER) 0.01 K/ L 0.01-0.08 (test code = 417) IMMATURE GRANULOCYTES-RELATIVE 2 % 0-1 H PERCENT (BEAKER) (test code = 2801) PROTHROMBIN TIME/[id number] 04:56:00 Test Item Value Reference Range Interpretation Comments PROTIME (BEAKER) (test code = 21.7 seconds 11.9-14.2 H 759) INR (BEAKER) (test code = 370) 2.0 <=5.9 Effective 10/24/2018: PT Reference Range ChangeNew: 11.9-14.2 Previous: 11.7- 14.7RECOMMENDED COUMADIN/WARFARIN INR THERAPY RANGESSTANDARD DOSE: 2.0-3.0 Includes: PROPHYLAXIS for venous thrombosis, systemic embolization; TREATMENT for venous thrombosis and/or pulmonary embolus.HIGH RISK: Target INR is2.5-3.5 for patients wiht mechanical heart valves.POCT-GLUCOSE [id number] 22:11:00 Test Item Value Reference Range Interpretation Comments POC-GLUCOSE METER 195 mg/dL 70-110 H : [facility] (BEAKER) (test code = [place], 1538) [address]: Commercial Diver/Techni zaire ID = [id number] for WONG REAL Hemoglobin and [id number] 16:15:00 Test Item Value Reference Range Interpretation Comments Hemoglobin (test code = 8.6 13.7- 17.5 GM/DL L 786-4) Hematocrit (test code = 30.2 % 40.1-51 L 4544-3) MADALYN (test code = MADALYN) Commercial Diver ID - [id number] Lab Interpretation (test Abnormal code = 25637-8) [id number] 16:15:00 Test Item Value Reference Range Interpretation Comments HEMOGLOBIN (BEAKER) (test code = 8.6 GM/DL 13.7-17.5 L 410) HEMATOCRIT (BEAKER) (test code = 30.2 % 40.1-51.0 L 411) Commercial Diver ID - [id number] 13:02:00 Test Item Value Reference Range Interpretation Comments Ferritin (test code = 73.10 ng/mL 5-275 2276-4) MADALYN (test code = MADALYN) Commercial Diver ID - [id number] Lab Interpretation (test Normal code = 97907-8) [facility] 13:02:00 Test Item Value Reference Range Interpretation Comments FERRITIN (BEAKER) (test code = 73.10 ng/mL 5.00-275.00 361) Commercial Diver ID - EDASIIron, TIBC, % sat. (without ferritin)2019-12-25 12:42:00 Test Item Value Reference Range Interpretation Comments Iron (test code = 2498-4) 29.0 ug/dL 40-160 L TIBC (test code = 2500-7) 151 ug/dL 250-450 L Iron % Saturation (test 19 % 20-55 L code = 2502-3) MADALYN (test code = MADALYN) Commercial Diver ID - EDASI Lab Interpretation (test Abnormal code = 87655-2) [facility], [facility]BC, % SAT. (WITHOUT FERRITIN)2019-12-25 12:42:00 Test Item Value Reference Range Interpretation Comments IRON (BEAKER) (test code = 547) 29.0 ug/dL 40.0-160.0 L TOTAL IRON BINDING CAPACITY 151 ug/dL 250-450 L (BEAKER) (test code = 769) IRON % SATURATION (2) (BEAKER) 19 % 20-55 L (test code = 2590) Commercial Diver ID - EDASIComprehensive metabolic [id number] 06:44:00 Test Item Value Reference Range Interpretation Comments Protein, Total (test 5.7 6.0- 8.3 gm/dL L code = 2885-2) Albumin (test code = 1.7 g/dL 3.5-5 L 72247-0) Alkaline Phosphatase 124 U/L 40-150 (test code = 6768-6) Total Bilirubin (test 2.0 mg/dL 0.2-1.2 H code = 1975-2) Sodium (test code = 134 meq/L 136-145 L 2951-2) Potassium (test code = 4.2 meq/L 3.5-5.1 2823-3) Chloride (test code = 107 meq/L 98-107 2075-0) CO2 (test code = 23 meq/L 22-29 2028-9) BUN (test code = 12 mg/dL 7-21 3094-0) Creatinine (test code 0.74 mg/dL 0.57-1.25 = 2160-0) Glucose (test code = 284 mg/dL 70-105 H 2345-7) Calcium (test code = 7.3 mg/dL 8.4-10.2 L 28154-1) AST (test code = 40 U/L 5-34 H 1920-8) ALT (test code = 20 U/L 6-55 1742-6) EGFR (test code = 107 mL/min/1.73 [place] [address]-8) NOT ACCURATE CREATININE CLEARANCE IN PREDICTING GLOMERULAR FILTRATION RATE . ESTIMATED GFR I S NOT APPLICABLE FOR DIALYSIS PATIENTS. MADALYN (test code = MADALYN) Commercial Diver ID - EDASI Lab Interpretation Abnormal (test code = 17962-3) [facility] [id number] 06:44:00 Test Item Value Reference Range Interpretation Comments TOTAL PROTEIN 5.7 gm/dL 6.0-8.3 L (BEAKER) (test code = 770) ALBUMIN (BEAKER) 1.7 g/dL 3.5-5.0 L (test code = 1145) ALKALINE PHOSPHATASE 124 U/L 40-150 (BEAKER) (test code = 346) BILIRUBIN TOTAL 2.0 mg/dL 0.2-1.2 H (BEAKER) (test code = 377) SODIUM (BEAKER) (test 134 meq/L 136-145 L code = 381) POTASSIUM (BEAKER) 4.2 meq/L 3.5-5.1 (test code = 379) CHLORIDE (BEAKER) 107 meq/L 98-107 (test code = 382) CO2 (BEAKER) (test 23 meq/L 22-29 code = 355) BLOOD UREA NITROGEN 12 mg/dL 7-21 (BEAKER) (test code = 354) CREATININE (BEAKER) 0.74 mg/dL 0.57-1.25 (test code = 358) GLUCOSE RANDOM 284 mg/dL 70-105 H (BEAKER) (test code = 652) CALCIUM (BEAKER) 7.3 mg/dL 8.4-10.2 L (test code = 697) AST (SGOT) (BEAKER) 40 U/L 5-34 H (test code = 353) ALT (SGPT) (BEAKER) 20 U/L 6-55 (test code = 347) EGFR (BEAKER) (test 107 ESTIMATE D GFR IS code = 1092) mL/min/1.73 sq NOT ACCURA TE m CREATININE CLEARANCE IN PREDICTING GLOMERULAR FILTRATION RATE . ESTIMATED GFR I S NOT APPLICABLE FOR DIALYSIS PATIEN TS. Commercial Diver ID - EDASICBC W/PLT COUNT & AUTO [id number] 05:55:00 Test Item Value Reference Range Interpretation Comments WHITE BLOOD CELL COUNT (BEAKER) 5.8 K/ L 3.5-10.5 (test code = 775) RED BLOOD CELL COUNT (BEAKER) 3.19 M/ L 4.63-6.08 L (test code = 761) HEMOGLOBIN (BEAKER) (test code = 7.3 GM/DL 13.7-17.5 L 410) HEMATOCRIT (BEAKER) (test code = 24.9 % 40.1-51.0 L 411) MEAN CORPUSCULAR VOLUME (BEAKER) 78.1 fL 79.0-92.2 L (test code = 753) MEAN CORPUSCULAR HEMOGLOBIN 22.9 pg 25.7-32.2 L (BEAKER) (test code = 751) MEAN CORPUSCULAR HEMOGLOBIN CONC 29.3 GM/DL 32.3-36.5 L (BEAKER) (test code = 752) RED CELL DISTRIBUTION WIDTH 21.7 % 11.6-14.4 H (BEAKER) (test code = 412) PLATELET COUNT (BEAKER) (test code 97 K/CU MM 150-450 L = 756) MEAN PLATELET VOLUME (BEAKER) 9.9 fL 9.4-12.4 (test code = 754) NUCLEATED RED BLOOD CELLS (BEAKER) 0 /100 WBC 0-0 (test code = 413) NEUTROPHILS RELATIVE PERCENT 57 % (BEAKER) (test code = 429) LYMPHOCYTES RELATIVE PERCENT 27 % (BEAKER) (test code = 430) MONOCYTES RELATIVE PERCENT 15 % (BEAKER) (test code = 431) EOSINOPHILS RELATIVE PERCENT 0 % (BEAKER) (test code = 432) BASOPHILS RELATIVE PERCENT 0 % (BEAKER) (test code = 437) NEUTROPHILS ABSOLUTE COUNT 3.28 K/ L 1.78-5.38 (BEAKER) (test code = 670) LYMPHOCYTES ABSOLUTE COUNT 1.54 K/ L 1.32-3.57 (BEAKER) (test code = 414) MONOCYTES ABSOLUTE COUNT (BEAKER) 0.84 K/ L 0.30-0.82 H (test code = 415) EOSINOPHILS ABSOLUTE COUNT 0.00 K/ L 0.04-0.54 L (BEAKER) (test code = 416) BASOPHILS ABSOLUTE COUNT (BEAKER) 0.01 K/ L 0.01-0.08 (test code = 417) IMMATURE GRANULOCYTES-RELATIVE 1 % 0-1 PERCENT (BEAKER) (test code = 2801) POCT-GLUCOSE [id number] 23:39:00 Test Item Value Reference Range Interpretation Comments POC-GLUCOSE METER 307 mg/dL 70-110 H : TESTED A T [facility] (BEAKER) (test code = [place], 1538) [address]: Commercial Diver/Techni zaire ID = [id number] for Erendira Talbert (contrac t) RAD, CHEST, 1 VIEW, NON [id number] 18:52:00REFERRING MD: CHERELLE SALVADOR Reason for exam:->sobShould this be performed at the bedside?->YesFINAL REPORT TECHNIQUE: Frontal view of the chest. INDICATION: 64-year-old man with shortness of breath. COMPARISON: Chest radiograph 12/19/2018. FINDINGS: LINES/TUBES: None. LUNGS: Lungs are well inflated. No consolidation or pulmonary edema. PLEURA: No pneumothorax or significant pleural effusion. HEART AND MEDIASTINUM: Persistent prominence of the cardiac silhouette. Atherosclerotic calcifications in the thoracic aorta. BONES AND SOFT TISSUES: Deformity of the right anterior seventh rib, new since 12/19/2018. Soft tissues are unremarkable. IMPRESSION:No acute cardiopulmonary abnormalities. New deformity of the right anterior seventh rib, suggestive of age-indeterminate fracture. Signed: Daniella Colunga MDReport Verified Date/Time: 12/24/2019 18:52:34 Reading Location: [facility] C013 Consult Reading Room XR chest 1 view portable / [id number] 18:52:00Interface, External Ris In - 12/24/2019 6:54 PM CDTFINAL REPORT TECHNIQUE: Frontal view of the chest. INDICATION: 64-year-old man with shortness of breath. COMPARISON: Chest radiograph 12/19/2018. FINDINGS: LINES/TUBES: None. LUNGS: Lungs are well inflated. No consolidation or pulmonary edema. PLEURA: No pneumothorax or significant pleural effusion. HEART AND MEDIASTINUM: Persistent prominence of the cardiac silhouette. Atherosclerotic calcifications in the thoracic aorta. BONES AND SOFT TISSUES: Deformity of the right anterior seventh rib, new since 12/19/2018. Soft tissues are unremarkable. IMPRESSION:No acute cardiopulmonary abnormalities. New deformity of the right anterior seventh rib, suggestive of age-indeterminate fracture. Signed: Daniella Colunga MDReport VerifiedDate/Time: 12/24/2019 18:52:34 Reading Location: [facility] C013 Consult Reading Room [facility] FarmBilirubin, [id number] 10:17:00 Test Item Value Reference Range Interpretation Comments Bilirubin, Total (test 2.4 mg/dL 0.2-1.2 H code = 5020681) Bilirubin, Direct (test 0.7 mg/dL < OR = 0.2 H code = 2991705) Bilirubin, Indirect 1.7 0.2- 1.2 mg/dL H (test code = 7027348) (calc) MADALYN (test code = MADALYN) FASTING:YESFASTING: YES RAC (test code = RAC) Performing Organization Information: Site ID: RGA Name: [facility] Address: [address] [place] [id number] Director: Terrell Romeo Lab Interpretation Abnormal (test code = 39954-4) [facility] + automated [id number] 10:17:00 Test Item Value Reference Range Interpretation [...] Neutros (test code = 3010 1,500 - 7,812 5510563) cells/uL # Lymphs (test code = 1937 [...] 0.9 % 20191218) MADALYN (test code = MADAYLN) FASTING:YESFASTING: YES RAC (test code = RAC) Performing Organization Information: Site ID: ABEL Name: [facility] Address: [address] [place] [phone] Director: Terrell Romeo Lab Interpretation Abnormal (test code = 05247-1) [facility] Hospital[facility] fetoprotein (AFP), tumor [id number] 10:17:00 Test Item Value Reference Interpretation Comments [...] Organization RAC) Information: Site ID: IG [facility]: [facility] Address: [address] [place] [phone] Director: Dr. Terrell Romeo [facility] HospitalPLATELET [id number] 10:17:00 Test Item Value Reference Range Interpretation Comments Platelet Estimate (test DECREASED ADEQUATE A code = 89570-2) MADALYN (test code = MADALYN) FASTING:YESFASTING: YES RAC (test code = RAC) Performing Organization Information: Site ID: RGLana Name: [facility] Address: [address] [place] [phone] Director: Terrell Romeo Lab Interpretation (test Abnormal code = 13466-9) [facility] HospitalBASIC METABOLIC [id number] 09:29:00 Test Item Value Reference Range Interpretation [...] FOR DIALYSIS PATIEN TS. Specimen slightly ictericCBC W/PLT COUNT & AUTO [id number] 08:54:00 Test Item Value Reference Range Interpretation [...] (BEAKER) (test code = 2801) Miscellaneous lab [id number] 07:03:00Scan ResultQUEST NON-INTERFACED LABCHI [facility] CenterHEPATITIS C [id number] 12:25:00 Test Item Value Reference Range Interpretation Comments HEPATITIS C ANTIBODY (BEAKER) (test Reactive Nonreactive A code = 367) ALPHA FETOPROTEIN (AFP), TUMOR [id number] 15:45:00 Test Item Value Reference Range Interpretation Comments ALPHA-FETOPROTEIN (BEAKER) (test 2.7 ng/mL <10.0 code = 1094) BASIC METABOLIC [id number] 15:36:00 Test Item Value Reference Range Interpretation [...] DIALYSIS PATIEN TS. Specimen slightly ictericHEPATIC FUNCTION [id number] 15:35:00 Test Item Value Reference Range Interpretation [...] 21 U/L 6-55 347) Specimen slightly ictericPROTHROMBIN TIME/[id number] 15:00:00 Test Item Value Reference Range Interpretation [...] mechanical heart valves.CBC W/PLT COUNT & AUTO [id number] 14:53:00 Test Item Value Reference Range Interpretation [...] code = 2801) ALPHA FETOPROTEIN (AFP), TUMOR [id number] 14:10:00 Test Item Value Reference Range Interpretation Comments ALPHA-FETOPROTEIN (BEAKER) (test 2.7 ng/mL <10.0 code = 1094) BASIC METABOLIC [id number] 13:52:00 Test Item Value Reference Range Interpretation [...] DIALYSIS PATIEN TS. Specimen slightly ictericHEPATIC FUNCTION [id number] 13:52:00 Test Item Value Reference Range Interpretation [...] 24 U/L 6-55 347) Specimen slightly ictericPROTHROMBIN TIME/[id number] 13:49:00 Test Item Value Reference Range Interpretation [...] mechanical heart valves.CBC W/PLT COUNT & AUTO [id number] 13:35:00 Test Item Value Reference Range Interpretation [...] 0-1 PERCENT (BEAKER) (test code = 2801) [id number] 14:59:00 Test Item Value Reference Range Interpretation Comments T4 TOTAL (BEAKER) (test code = 895) 5.7 ug/dL 4.9-11.7 [id number] 13:20:00 Test Item Value Reference Range Interpretation Comments T3 TOTAL (BEAKER) (test code = 656) 113 ng/dL 48-159 CYTOMEGALOVIRUS ANTIBODY, [id number] 11:11:00 Test Item Value Reference Range Interpretation Comments CYTOMEGALOVIRUS, IGG (BEAKER) Positive Negative, Equivocal A (test code = 3429) CMV IgG Result Interpretation: </= 0.8 Al Negative 0.9-1.0 Al Equivocal >/=1.1 Al PositiveCYTOMEGALOVIRUS ANTIBODY, [id number] 11:11:00 Test Item Value Reference Range Interpretation Comments CYTOMEGALOVIRUS IGM ANTIBODY Negative Negative, Equivocal (BEAKER) (test code = 3437) CMV IgM Result Interpretation: </= 0.8 Al Negative 0.9-1.0 Al Equivocal >/= 1.1 Al PositiveEBV ANTIBODY, [id number] 11:08:00 Test Item Value Reference Range Interpretation [...] Equivocal >/= 1.1 Al PositiveVARICELLA ZOSTER ANTIBODY, [id number] 11:08:00 Test Item Value Reference Range Interpretation Comments VARICELLA ZOSTER IGG (AL) (BEAKER) > (test code = 3197) VARICELLA ZOSTER RESULT INTERPRETATIONS: <=0.8 Al Nonreactive: Presumed non-immune to VZV 0.9-1.0 Al Equivocal >=1.1 Al Reactive: Presumed immune to [id number]-[id number] 13:11:00 Test Item Value Reference Range Interpretation Comments ALPHA-1 ANTITRYPSIN (BEAKER) 155.30 mg/dL 90.00-200.00 (test code = 502) HEMOGLOBIN [id number] 13:08:00 Test Item Value Reference Range Interpretation Comments HEMOGLOBIN A1C (BEAKER) (test code = 6.4 % 4.3-6.1 H 368) HEPATITIS A ANTIBODY, [id number] 12:51:00 Test Item Value Reference Range Interpretation Comments HEPATITIS A IGG ANTIBODY (BEAKER) Reactive Nonreactive A (test code = 2797) HEPATITIS C [id number] 12:51:00 Test Item Value Reference Range Interpretation Comments HEPATITIS C ANTIBODY (BEAKER) (test Reactive Nonreactive A code = 367) [id number] 12:48:00 Test Item Value Reference Range Interpretation Comments PROSTATE SPECIFIC ANTIGEN (BEAKER) 0.4 ng/mL 0.0-4.0 (test code = 844) HIV-1 ANTIGEN WITH HIV-1/2 [id number] 12:48:00 Test Item Value Reference Range Interpretation Comments HIV-1 ANTIGEN WITH HIV 1\T\2 Nonreactive Nonreactive ANTIBODY (2) (BEAKER) (test code = 2586) VITAMIN D, 57-[id number] 12:46:00 Test Item Value Reference Range Interpretation Comments VITAMIN D 25-OH (BEAKER) (test code 7.7 ng/mL 6.6-49.9 = 2764) Effective 03/08/2017: Reference Range ChangeNew: 6.6-49.9 ng/mL Previous: 13.0-47.8 ng/mLRecommended Vitamin D Target Range: 30.0-40.0 ng/mLURINALYSIS W/ [id number] 11:55:00 Test Item Value Reference Range Interpretation [...] 1579) 2 /LPF SOURCE(BEAKER) (test code = 5315) CRYPTOCOCCAL [id number] 11:10:00 Test Item Value Reference Range Interpretation Comments CRYPTOCOCCAL ANTIGEN, SERUM Negative Negative, Interference (BEAKER) (test code = 1828) [id number] 10:59:00 Test Item Value Reference Range Interpretation Comments THYROID STIMULATING HORMONE 2.10 uIU/mL 0.35-4.94 (BEAKER) (test code = 772) [id number] 10:59:00 Test Item Value Reference Range Interpretation Comments FERRITIN (BEAKER) (test code = 361) 69 ng/mL 5-275 [id number] 10:51:00 Test Item Value Reference Range Interpretation Comments RPR SCREEN (BEAKER) (test code = Nonreactive Nonreactive 420) [id number] 10:49:00 Test Item Value Reference Range Interpretation Comments TRANSFERRIN (BEAKER) (test code = 197 mg/dL 174-382 541) Specimen slightly [id number] 10:45:00 Test Item Value Reference Range Interpretation Comments MAGNESIUM (BEAKER) (test code = 1.5 mg/dL 1.6-2.6 L 627) [id number] 10:45:00 Test Item Value Reference Range Interpretation Comments PHOSPHORUS (BEAKER) (test code = 3.6 mg/dL 2.3-4.7 604) URIC [id number] 10:45:00 Test Item Value Reference Range Interpretation Comments URIC ACID (BEAKER) (test code = 4.8 mg/dL 2.6-7.2 773) Specimen slightly ictericCOMPREHENSIVE METABOLIC [id number] 10:45:00 Test Item Value Reference Range Interpretation [...] FOR DIALYSIS PATIEN TS. Specimen slightly ictericLIPID [id number] 10:45:00 Test Item Value Reference Range Interpretation [...] 160-189 Very High >=190 Specimen slightly ictericBILIRUBIN, [id number] 10:45:00 Test Item Value Reference Range Interpretation Comments BILIRUBIN DIRECT (BEAKER) (test 1.6 mg/dL 0.1-0.5 H code = 706) GAMMA GLUTAMYL TRANSFERASE (GGT)[id number] 10:45:00 Test Item Value Reference Range Interpretation Comments GAMMA GLUTAMYL TRANSFERASE (BEAKER) 33 U/L 9-64 (test code = 364) Specimen slightly [id number] 10:42:00 Test Item Value Reference Range Interpretation Comments PARTIAL THROMBOPLASTIN TIME 37.9 seconds 22.5-36.0 H (BEAKER) (test code = 760) PROTHROMBIN [id number] 10:36:00 Test Item Value Reference Range Interpretation [...] INR is2.5-3.5 for patients wiht mechanical heart valves.[id number] 10:36:00 Test Item Value Reference Range Interpretation Comments ETHANOL (BEAKER) (test code = 400) < mg/dL <=10 [id number] 10:36:00 Test Item Value Reference Range Interpretation Comments FIBRINOGEN LEVEL (BEAKER) (test 207 mg/dl 225-434 L code = 658) BLOOD GAS, [id number] 10:35:00 Test Item Value Reference Range Interpretation [...] 21.0 % CBC W/PLT COUNT & AUTO [id number] 10:25:00 Test Item Value Reference Range Interpretation [...] PERCENT (BEAKER) (test code = 2801) CALCIUM, [id number] 10:20:00 Test Item Value Reference Range Interpretation Comments CALCIUM IONIZED (BEAKER) (test 1.05 mmol/L 1.12-1.27 L code = 698) PH, BLOOD (BEAKER) (test code = 7.41 1810) RAD, MANDIBLE, MIN 4 [id number] 16:56:00REFERRING : CHERELLE SALVADOR Reason for Exam:->pretransplant liver evaluationFINAL REPORT TECHNIQUE: Minimum four views of the mandible. INDICATION: pretransplant liver evaluation. COMPARISON: None. FINDINGS:No fracture or dislocation.No periapical lucencies.Caries of a maxillary molar, side indeterminate.Mild degenerative disc changes at C4-C5, C5-C6, and C6-C7. IMPRESSION: No periapical lucency. Caries of a maxillary molar, side indeterminate. Signed:Tawanda Hernandez Verified Date/Time: 12/19/2018 16:56:31 Reading Location: [address] Radiology Reading Room RAD, CHEST, 2 [id number] 15:51:00REFERRING : CHERELLE SALVADOR Reason for Exam:->pretransplant [...] Hathaway Verified Date/Time: 12/19/2018 15:51:17 Reading Location: [facility] Mammo Reading Room MR, ABDOMEN, [id number] 14:51:00 REFERRING MD: CHERELLE VEGAINAL REPORT TECHNIQUE: [...] and large esophageal varices. Signed: Tawanda Hernandez MDRepliberty hospital Verified Date/Time: 12/19/2018 14:51:24 Reading Location: [address] Radiology Reading Room [facility] 2018-12-06 11:12:00 Test Item Value Reference Range Interpretation Comments ETHANOL (BEAKER) (test code = 400) < mg/dL <=10 BASIC METABOLIC [id number] 10:56:00 Test Item Value Reference Range Interpretation [...] DIALYSIS PATIEN TS. Specimen moderately ictericHEPATIC FUNCTION [id number] 10:56:00 Test Item Value Reference Range Interpretation [...] 27 U/L 6-55 347) Specimen moderately ictericPROTHROMBIN TIME/[id number] 10:40:00 Test Item Value Reference Range Interpretation [...] mechanical heart valves.CBC W/PLT COUNT & AUTO [id number] 10:38:00 Test Item Value Reference Range Interpretation [...] PERCENT (BEAKER) (test code = 2801) BLOOD [id number] 08:00:00 Test Item Value Reference Range Interpretation Comments CULTURE (BEAKER) (test No growth in 5 days code = 1095) BLOOD [id number] 08:00:00 Test Item Value Reference Range Interpretation Comments CULTURE (BEAKER) (test No growth in 5 days code = 1095) BODY FLUID CULTURE + GRAM [id number] 12:20:00 Test Item Value Reference Range Interpretation Comments CULTURE (BEAKER) (test code No growth = 1095) GRAM STAIN RESULT (BEAKER) 1+ WBCs (test code = 1123) GRAM STAIN RESULT (BEAKER) No organisms seen (test code = 77361) HEPATITIS C PCR, [id number] 08:32:00 Test Item Value Reference Range Interpretation Comments HCV RESULT COMPONENT HCV RNA not detected HCV RNA not detected (BEAKER) (test code = 2699) This test uses a Real-Time Polymerase Chain Reaction (RT-PCR) methodology and was performed using [employer] Ampliprep/KHOA TaqMan HCV test kit version 2.0 ([employer]).Reportable range for this assay is 15 - 100,000,000 IU per mL (1.18 - 8.00 Log IU/mL).POCT-GLUCOSE [id number] 08:09:00 Test Item Value Reference Range Interpretation Comments POC-GLUCOSE METER 117 mg/dL 70-[address] [facility] [address] ([facility]) (test code = [place] 1538) [address] CALCIUM, [id number] 05:54:00 Test Item Value Reference Range Interpretation Comments CALCIUM IONIZED (AKER) (test 1.01 mmol/L 1.12-1.27 L code = 698) PH, BLOOD ([facility]) (test code = 7.45 1810) COMPREHENSIVE METABOLIC [id number] 05:07:00 Test Item Value Reference Range Interpretation Comments TOTAL PROTEIN 5.4 gm/dL 6.0-8.3 L (AKER) (test code = 770) ALBUMIN (AKER) 2.5 g/dL 3.5-5.0 L (test code = 1145) ALKALINE PHOSPHATASE 100 U/L 40-150 (AKER) (test code = 346) BILIRUBIN TOTAL 3.0 [...] APPLICABLE FOR DIALYSIS PATIEN TS. Specimen slightly [id number] 05:06:00 Test Item Value Reference Range Interpretation Comments PHOSPHORUS (BEAKER) (test code = 3.3 mg/dL 2.3-4.7 604) [id number] 05:06:00 Test Item Value Reference Range Interpretation Comments MAGNESIUM (BEAKER) (test code = 1.5 mg/dL 1.6-2.6 L 627) CBC W/PLT COUNT & AUTO [id number] 04:43:00 Test Item Value Reference Range Interpretation [...] PERCENT (BEAKER) (test code = 2801) POCT-GLUCOSE [id number] 21:35:00 Test Item Value Reference Range Interpretation Comments POC-GLUCOSE METER 154 mg/dL 70-[address] [facility] [address] (BEAKER) (test code = [place] 1538) [address] POCT-GLUCOSE [id number] 17:21:00 Test Item Value Reference Range Interpretation Comments POC-GLUCOSE METER 138 mg/dL 70-[address] [facility] [address] (BEAKER) (test code = [place] 1538) [address] POCT-GLUCOSE [id number] 13:27:00 Test Item Value Reference Range Interpretation Comments POC-GLUCOSE METER 166 mg/dL 70-[address] [facility] [address] (BEAKER) (test code = [place] 1538) [address] CBC W/PLT COUNT & AUTO [id number] 12:00:00 Test Item Value Reference Range Interpretation [...] 3438) Received comment: User comments: Slide comments:POCT-GLUCOSE [id number] 11:52:00 Test Item Value Reference Range Interpretation Comments POC-GLUCOSE METER 180 mg/dL 70-[address] [facility] [address] (BEAKER) (test code = [place] 1538) [address] POCT-GLUCOSE [id number] 08:09:00 Test Item Value Reference Range Interpretation Comments POC-GLUCOSE METER 115 mg/dL 70-110 H TESTED AT [place] [address] (BEAKER) (test code = [place] 1538) [address] COMPREHENSIVE METABOLIC [id number] 05:59:00 Test Item Value Reference Range Interpretation [...] APPLICABLE FOR DIALYSIS PATIEN TS. Specimen slightly [id number] 05:57:00 Test Item Value Reference Range Interpretation Comments MAGNESIUM (BEAKER) (test code = 1.6 mg/dL 1.6-2.6 627) POCT-GLUCOSE [id number] 22:30:00 Test Item Value Reference Range Interpretation Comments POC-GLUCOSE METER 186 mg/dL 70-[address] [facility] ([facility]) (test code = [place] 1538) [address] POCT-GLUCOSE [id number] 18:33:00 Test Item Value Reference Range Interpretation Comments POC-GLUCOSE METER 117 mg/dL 70-[address] [facility] ([facility]) (test code = [place] 1538) [address] U/S, [id number] 17:34:00REFERRING : CHERELLE SALVADOR Please give 25g [...] 2% lidocaine anesthesia was administered. A 5 Egyptian catheter was advanced into the peritoneal cavity and 1300 cc of addison fluid was removed. The catheter was removed without immediate complication. Samples left with interstitial sent to the lab for analysis. IMPRESSION:Uncomplicated ultrasound-guided paracentesis with 1300 cc fluid removed. Signed: Mauricio Cullen MDReport Verified Date/Time: 10/29/2018 17:34:00 Reading Location: [address] Ultrasound Reading Room VANCOMYCIN LEVEL, TROUGH 2018-10-29 17:22:00 Test Item Value Reference Range Interpretation Comments VANCOMYCIN TROUGH (BEAKER) (test 7.3 ug/mL 10.0-20.0 L code = 522) CBC W/PLT COUNT & AUTO [id number] 15:00:00 Test Item Value Reference Range Interpretation [...] = 2801) BODY FLUID CELL COUNT WITH [id number] 13:45:00 Test Item Value Reference Range Interpretation [...] Tube (test code = 2873) RESPIRATORY PANEL [id number] 12:27:00 Test Item Value Reference Range Interpretation [...] sample was tested at the [facility] using the TalkPlusArray Respiratory Panel. It is FDA cleared and has been verified and approved by the [facility] for clinical use on nasopharyngeal swab specimens.The performance of the FilmArrayRP has not been established in individuals who received influenza vaccine. Recent administration ofa nasal influenza vaccine may cause false positive results for Influenza A and/orInfluenza B.POCT-GLUCOSE [id number] 12:16:00 Test Item Value Reference Range Interpretation Comments POC-GLUCOSE METER 196 mg/dL 70-[address] [facility] ([place]) (test code = NICOLE [place] 1538) [address] RESPIRATORY PANEL [id number] 10:59:00 Test Item Value Reference Range Interpretation [...] detected Not detected, (BEAKER) (test code = 9910) Equivocal ADENOVIRUS (BEAKER) (test Not detected Not [...] sample was tested at the [facility] using the TalkPlusArray Respiratory Panel. It is FDA cleared and has been verified and approved by the [facility] for clinical use on nasopharyngeal swab specimens.The performance of the FilmArrayRP has not been established in individuals who received influenza vaccine. Recent administration ofa nasal influenza vaccine may cause false positive results for Influenza A and/orInfluenza B.POCT-GLUCOSE [id number] 08:15:00 Test Item Value Reference Range Interpretation Comments POC-GLUCOSE METER 184 mg/dL 70-[address] [facility] [address] ([facility]) (test code = [place] 1538) [address] CBC W/PLT COUNT & AUTO [id number] 07:49:00 Test Item Value Reference Range Interpretation Comments WHITE BLOOD CELL COUNT (AKER) 7.2 K/ L 3.5-10.5 (test code = 775) RED BLOOD CELL COUNT (AKER) 2.66 M/ L 4.63-6.08 L (test code = 761) HEMOGLOBIN (BEAKER) (test code = 8.9 GM/DL 13.7-17.5 L 410) HEMATOCRIT ([facility]) (test code = 27.2 % 40.1-51.0 L 411) MEAN CORPUSCULAR VOLUME ([facility]) 102.3 fL 79.0-92.2 H (test [...] APPLICABLE FOR DIALYSIS PATIEN TS. Specimen moderately [id number] 04:31:00 Test Item Value Reference Range Interpretation Comments MAGNESIUM (BEAKER) (test code = 1.9 mg/dL 1.6-2.6 627) LACTIC ACID, [id number] 04:18:00 Test Item Value Reference Range Interpretation Comments LACTATE BLOOD VENOUS (2) ([facility]) 1.3 mmol/L 0.5-2.2 (test code = 2872) Specimen moderately ictericPOCT-GLUCOSE [id number] 18:00:00 Test Item Value Reference Range Interpretation Comments POC-GLUCOSE METER 121 mg/dL 70-[address] [facility] ([facility]) (test code = NICOLE [place]rit[place] 1538) [id number] 12:39:00 Test Item Value Reference Range Interpretation Comments PROCALCITONIN ([facility]) (test code 4.50 ng/mL <0.05 H = 3036) SEPSIS RISK (ng/mL)Low: 0.05-0.50Intermediate: 0.51-2.00High: >=2.01POCT-GLUCOSE [id number] 12:20:00 Test Item Value Reference Range Interpretation Comments POC-GLUCOSE METER 148 mg/dL 70-[address] [facility] [address] ([facility]) (test code = [facility] 1538) [id number] LEGIONELLA ANTIGEN, [id number] 12:13:00 Test Item Value Reference Range Interpretation Comments L. PNEUMOPHILA Negative - see Negative fo r L. SEROGP 1 UR AG comment pneumophila ([facility]) (test code serogrou p 1 antigen, = 1156) suggesting no r ecent or current infe ction with this serog roup. Legionellosis c annot be ruled out si nce other serogroup s and species may cau se disease. STREP PNEUMONIAE [id number] 12:13:00 Test Item Value Reference Range Interpretation Comments STREP PNEUMONIAE Presumptive negative Presumptive negative ANTIGEN (GlytheraAKER) for pneumococcal for pneumococcal (test code = 1615) pneumonia - see pneumonia - see comment commen Presumptive negative for pneumococcal pneumonia, suggesting no current or recent pneumococcal infection. Infection due to S. pneumoniae cannot be ruled out since the antigen present in the sample may be below the detection limit of the test. RAPID INFLUENZA A&B [id number] 12:11:00 Test Item Value Reference Range Interpretation Comments RAPID INFLUENZA A AG (BEAKER) Negative Negative, Inconclusive (test code = 1622) RAPID INFLUENZA B AG (BEAKER) Negative Negative, Inconclusive (test code = 1623) LACTIC ACID, [id number] 10:51:00 Test Item Value Reference Range Interpretation Comments LACTATE BLOOD VENOUS (2) (BEAKER) 3.0 mmol/L 0.5-2.2 H (test code = 2872) Specimen moderately ictericU/S, ABDOMINAL, [id number] 07:19:00REFERRING MD: CHERELLE SALVADOR Please perform with [...] MDReport Verified Date/Time: 10/28/2018 07:19:25 Reading Location: [address] Transitional Reading Room RAPID DRUG SCREEN, [id number] 07:07:00 Test Item Value Reference Range Interpretation [...] situations. Chain of custody not maintained. Some zhql-huh-kjiikjx medications, as well as adulterants, may cause inaccurate results. Clinical correlation should be applied. A more comprehensive drug screen or confirmation of a detected drug may be performed upon request.CT, BRAIN, WITHOUT [id number] 06:42:00REFERRJB MD: CHERELLE LEROYTFINAL REPORT CT, BRAIN, [...] Verified Date/Time: 10/28/2018 06:42:47 VITAMIN B12 AND [id number] 06:21:00 Test Item Value Reference Range Interpretation Comments VITAMIN B12 (BEAKER) (test code = 719 pg/mL 213-816 774) FOLATE (BEAKER) (test code = 362) 13.7 ng/mL >=7.0 TROPONIN [id number] 06:05:00 Test Item Value Reference Range Interpretation [...] H (test code = 2590) COMPREHENSIVE METABOLIC [id number] 05:44:00 Test Item Value Reference Range Interpretation [...] APPLICABLE FOR DIALYSIS PATIEN TS. Specimen moderately [id number] 05:38:00 Test Item Value Reference Range Interpretation Comments MAGNESIUM (BEAKER) (test code = 2.3 mg/dL 1.6-2.6 627) LACTIC ACID, [id number] 05:32:00 Test Item Value Reference Range Interpretation Comments LACTATE BLOOD VENOUS 4.1 mmol/L 0.5-2.2 H Specime n slightly (2) (BEAKER) (test hemolyzed code = 8190) Specimen moderately ictericTROPONIN [id number] 02:28:00 Test Item Value Reference Range Interpretation [...] disease, and persistent tachyarrhythmia.RAD, ABDOMEN/KUB, 1 VIEW [id number] 02:04:00REFERRING MD: CHERELLE SALVADOR Reason for exam:->NG [...] Day MDReport Verified Date/Time: 10/28/2018 02:04:20 HROMBIN [id number] 01:58:00 Test Item Value Reference Range Interpretation Comments PROTIME (BEJOSE) (test code = 18.8 seconds 11.9-14.2 H 759) INR (BEAKER) (test code = 370) 1.7 <=5.9 Effective 10/24/2018: PT Reference Range ChangeNew: 11.9-14.2 Previous: 11.7- 14.7RECOMMENDED COUMADIN/WARFARIN INR THERAPY RANGESSTANDARD DOSE: 2.0-3.0 Includes: PROPHYLAXIS for venous thrombosis, systemic embolization; TREATMENT for venous thrombosis and/or pulmonary embolus.HIGH RISK: Target INR is2.5-3.5 for patients wiht mechanical heart valves.CBC W/PLT COUNT & AUTO [id number] 01:45:00 Test Item Value Reference Range Interpretation [...] User comments: Slide comments:URINALYSIS W/ REFLEX URINE [id number] 01:36:00 Test Item Value Reference Range Interpretation [...] SOURCE(BEAKER) (test code = 2795) COMPREHENSIVE METABOLIC [id number] 01:16:00 Test Item Value Reference Range Interpretation [...] APPLICABLE FOR DIALYSIS PATIEN TS. Specimen moderately [id number] 01:15:00 Test Item Value Reference Range Interpretation Comments AMMONIA (BEAKER) (test code = 348) 69 mol/L 18-72 LACTIC ACID, [id number] 01:08:00 Test Item Value Reference Range Interpretation Comments LACTATE BLOOD VENOUS (2) (BEAKER) 3.2 mmol/L 0.5-2.2 H (test code = 2872) Specimen moderately [id number] 01:08:00 Test Item Value Reference Range Interpretation Comments MAGNESIUM (BEAKER) (test code = 1.1 mg/dL 1.6-2.6 L 627) RAD, CHEST, 1 VIEW, NON [id number] 00:52:00REFERRING : CHERELLE SALVADOR Reason for exam:->sepsisShould [...] MDReport Verified Date/Time: 10/28/2018 00:52:42 Reading Location: [address] Reading Room ACTIN (SMOOTH MUSCLE) ANTIBODY, [id number] 08:28:00 Test Item Value Reference Range Interpretation Comments SCAN RESULT (test code = 9324732) [id number] 08:27:00 Test Item Value Reference Range Interpretation Comments SCAN RESULT (test code = 5602668) NILS TITER AND [id number] 09:55:00 Test Item Value Reference Range Interpretation Comments NILS TITER (BEAKER) (test code = :160 1541) NILS PATTERN (BEAKER) (test code = Speckled 1781) ANTI-NUCLEAR ANTIBODY (NILS)2018-10-05 09:54:00 Test Item Value Reference Range Interpretation Comments ANTI-NUCLEAR ANTIBODY (NILS) (BEAKER) Positive Negative A (test code = 418) Test performed by IFA method.[id number] 10:54:00 Test Item Value Reference Range Interpretation Comments FERRITIN (BEAKER) (test code = 361) 218 ng/mL 5-275 HEPATITIS A ANTIBODY, [id number] 10:18:00 Test Item Value Reference Range Interpretation Comments HEPATITIS A IGG ANTIBODY (BEAKER) Reactive Nonreactive A (test code = 2797) ALPHA FETOPROTEIN (AFP), TUMOR [id number] 10:14:00 Test Item Value Reference Range Interpretation Comments ALPHA-FETOPROTEIN (BEAKER) (test 3.5 ng/mL <10.0 code = 1094) HEPATITIS A ANTIBODY, [id number] 10:14:00 Test Item Value Reference Range Interpretation Comments HEPATITIS A IGM ANTIBODY (BEAKER) Nonreactive Nonreactive (test code = 498) HEPATITIS B CORE ANTIBODY, [id number] 10:14:00 Test Item Value Reference Range Interpretation Comments HEPATITIS B CORE TOTAL ANTIBODY Nonreactive Nonreactive (BEAKER) (test code = 497) HEPATITIS B SURFACE [id number] 09:42:00 Test Item Value Reference Range Interpretation Comments HEPATITIS B SURFACE ANTIBODY < mIU/mL <8.0 (BEAKER) (test code = 647) HEPATITIS B SURFACE [id number] 09:36:00 Test Item Value Reference Range Interpretation [...] 41 % 20-55 (test code = 2590) [id number] 09:14:00 Test Item Value Reference Range Interpretation Comments ALPHA-1 ANTITRYPSIN (BEAKER) 159.30 mg/dL 90.00-200.00 (test code = 502) COMPREHENSIVE METABOLIC [id number] 09:10:00 Test Item Value Reference Range Interpretation [...] FOR DIALYSIS PATIEN TS. Specimen slightly ictericBILIRUBIN, [id number] 09:10:00 Test Item Value Reference Range Interpretation Comments BILIRUBIN DIRECT (BEAKER) (test 1.4 mg/dL 0.1-0.5 H code = 706) PROTHROMBIN [id number] 08:38:00 Test Item Value Reference Range Interpretation [...]
[2020-01-10] MEDS ORDERED: FUROSEMIDE 40 MG/4 ML VIAL ONE (18:33)
[2020-01-10 18:52] LABS: Protime INR 1.75
[2020-01-10 19:11] LABS: ALT/SGPT 26 U/L (12-78); AST/SGOT 53 U/L (15-37); Albumin 1.5 g/dL (3.4-5.0); Alkaline Phosphatase 175 U/L (45-117); BUN Blood Urea Nitrogen 9 mg/dL (7-18); Bicarbonate 21 mmol/L (21-32); Bilirubin Direct 1.1 mg/dL (0-0.2); Bilirubin Total 1.7 mg/dL (0.2-1.0); Glucose Level 186 mg/dL (74-106); Magnesium 1.5 mg/dL (1.8-2.4); NT PRO-BNP 389 pg/mL (<125); Potassium 3.6 mmol/L (3.5-5.1); Protein, Total 6.8 g/dL (6.4-8.2); Sodium Level 135 mmol/L (136-145); Troponin (Emerg Dept Use Only) 0.11 ng/mL (0.0-0.045)
--- NOTE | 2020-01-10 19:14 | RAD REPORT ---
EXAM DESCRIPTION: RAD - Chest Single View - 01/10/2020 6:51 pm CLINICAL HISTORY: weakness Chest pain. COMPARISON: Chest Single View dated 12/24/2019; Chest Single View dated 10/27/2018; Chest Single View d ated 08/04/2018; Chest Single View dated 05/23/2018; Chest For Pe Angio dated 12/24/2019 FINDINGS: Portable technique limits examination quality. The lungs are underinflated but grossly clear. The heart is normal in size. No displaced fractures. IMPRESSION: No acute intrathoracic process suspected.
--- NOTE | 2020-01-10 19:45 | RAD REPORT ---
EXAM DESCRIPTION: CT - Head Brain Wo Cont - 01/10/2020 7:31 pm CLINICAL HISTORY: recurrent falls Headache, drowsiness COMPARISON: Head Brain Wo Cont dated 08/04/2018 TECHNIQUE: All CT scans are performed using dose optimization technique as appropriate and may inclu de automated exposure control or mA/KV adjustment according to patient size. FINDINGS: No intracranial hemorrhage, hydrocephalus or extra-axial fluid collection.Mild generalized brain atrophy is present with mild periventricular and deep white matter chronic microvascular ische leoncio changes.No areas of brain edema or evidence of midline shift. 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 The paranasal sinuses and mastoids are clear. The calvarium is intact. IMPRESSION: No acute intracranial abnormality.
[2020-01-10 19:56] LABS: MPV 8.5 fL (7.6-11.3)
[2020-01-10 19:57] LABS: Absolute Lymphocytes (CBC) 1.6 K/uL (0.7-4.9); Basophils % 0.6 % (0-1.3); Hematocrit 24.2 % (39.6-49.0); Lymphocytes % 20.6 % (15.3-44.8); RBC Red Blood Cell Count 3.11 M/uL (4.33-5.43)
[2020-01-10] MEDS ORDERED: Magnesium Sulfate 2gm IVPB 2 G/50 ML BAG IV ONE (20:02)
--- NOTE | 2020-01-10 21:13 | RAD REPORT ---
EXAM DESCRIPTION: US - Extrem Venous W Compress Brendon - 01/10/2020 9:08 pm CLINICAL HISTORY: swelling;Pain Bilateral leg edema and swelling. COMPARISON: Extrem Venous W Compress Brendon dated 05/23/2018 TECHNIQUE: Real-time sonographic interrogation of the left and right lower extremity deep venous sys tems was performed. FINDINGS: Normal compressibility, flow augmentation, phasic flow and spontaneous flow is identified in both the left and right lower extremity deep venous systems. IMPRESSION: No sonographic evidence of left or right lower extremity deep venous thrombosis.
--- NOTE | 2020-01-10 21:17 | EDPHYS ---
Physician Documentation [facility] Name: Tonny Vidal Age: 64 yrs Sex: Male : 1955 Arrival Date: 01/10/2020 Time: 17:47 Bed 5 Private MD: ED Physician Wellington Flood HPI: 01/09 18:15 This 64 yrs old Male presents to ER via EMS with complaints of Leg Pain. kdr 18:16 This 64 yrs old Male presents to ER via EMS with complaints of Leg Pain and kdr weakness. 18:16 The patient states that for the last few days, he has been falling due to generalized kdr and in particular, lower extremity weakness. He denies LOC or any other suspected cause of his falling. States that his legs give out on him and now has pain in both thighs. he was recently tested positive for COVID. Onset: The symptoms/episode began/occurred gradually, 3 day(s) ago. Severity of symptoms: At their worst the symptoms were mild in the emergency department the symptoms are unchanged. The patient has not experienced similar symptoms in the past. The patient has been recently seen by a physician: the patient's primary care provider. Historical: - Allergies: 17:49 No Known Allergies; bp - Home Meds: 17:49 Unable to obtain [Active]; bp - PMHx: 17:49 ADD/ADHD; Cirrhosis; Diabetes - NIDDM; Hypertension; psoriasis; bp - Immunization history:: Adult Immunizations unknown. - Social history:: Smoking status: unknown Patient uses alcohol. ROS: 18:16 Constitutional: Negative for fever, chills, and weight loss - generally weak Eyes: kdr Negative for injury, pain, redness, and discharge, ENT: Negative for injury, pain, and discharge, Neck: Negative for injury, pain, and swelling, Cardiovascular: Negative for chest pain, palpitations, and edema, Respiratory: Negative for shortness of breath, cough, wheezing, and pleuritic chest pain, Abdomen/GI: Negative for abdominal pain, nausea, vomiting, diarrhea, and constipation, Back: Negative for injury and pain, : Negative for injury, bleeding, discharge, and swelling, Skin: Negative for injury, rash, and discoloration, Neuro: Negative for headache, weakness, numbness, tingling, and seizure activity. Psych: Negative for depression, anxiety, suicide ideation, homicidal ideation, and hallucinations, Allergy/Immunology: Negative for hives, rash, and allergies, Endocrine: Negative for neck swelling, polydipsia, polyuria, polyphagia, and marked weight changes, Hematologic/Lymphatic: Negative for swollen nodes, abnormal bleeding, and unusual bruising. 18:16 MS/extremity: Positive for pain, swelling, tenderness, of the , He has bilateral pitting edema in his lower extremity and pain in his thighs. Exam: 18:16 Constitutional: This is a well developed, well nourished patient who is awake, alert, kdr and in no acute distress. Head/Face: Normocephalic, atraumatic. Eyes: Pupils equal round and reactive to light, extra-ocular motions intact. Lids and lashes normal. Conjunctiva and sclera are non-icteric and not injected. Cornea within normal limits. Periorbital areas with no swelling, redness, or edema. Neck: Trachea midline, no thyromegaly or masses palpated, and no cervical lymphadenopathy. Supple, full range of motion without nuchal rigidity, or vertebral point tenderness. No Meningismus. Chest/axilla: Normal chest wall appearance and motion. Nontender with no deformity. No lesions are appreciated. Abdomen/GI: Soft, non-tender, obese. No distension or tympany. No guarding or rebound. No evidence of tenderness throughout. Back: No spinal tenderness. No costovertebral tenderness. Full range of motion. Skin: Warm, dry with normal turgor. Extensive eccychmosi with no rashes, no lesions, and no evidence of cellulitis. Neuro: Awake and alert, GCS 15, oriented to person, place, time, and situation. Cranial nerves II-XII grossly intact. Motor strength 5/5 in all extremities. Sensory grossly intact. Cerebellar exam normal. Normal gait. Psych: Awake, alert, with orientation to person, place and time. Behavior, mood, and affect are within normal limits. Vital Signs: 17:47 BP 105 / 55; Pulse 90; Resp 16; Temp 97.7; Pulse Ox 98% ; bp 18:48 BP 101 / 66; Pulse 87; Resp 19; Pulse Ox 100% on R/A; Pain 8/10; em 19:45 BP 102 / 57; Pulse 93; Resp 18; Pulse Ox 100% on R/A; wh 21:11 BP 103 / 65; Pulse 77; Resp 18; Pulse Ox 99% on R/A; wh 22:15 BP 122 / 68; Pulse 79; Resp 18; Pulse Ox 99% ; wh 23:00 BP 111 / 65; Pulse 79; Resp 18; Pulse Ox 100% on R/A; MDM: 18:16 Data reviewed: vital signs, nurses notes. [facility] 21:13 Data reviewed: lab test result(s), EKG, radiologic studies, CT scan, plain films, pkl ultrasound. ED course: Talked to Mirza Mccarthy for observation Dr. Finnegan. 21:16 Patient medically screened. [facility] 01/09 18:13 Order name: Basic Metabolic Panel; Complete Time: 19:40 kdr 01/09 18:13 Order name: CBC with Diff; Complete Time: 22:11 [facility] 01/09 18:13 Order name: LFT's; Complete Time: 19:40 [facility] 01/09 18:13 Order name: Magnesium; Complete Time: 19:40 [facility] 01/09 18:13 Order name: NT PRO-BNP; Complete Time: 19:40 [facility] 01/09 18:13 Order name: PT-INR; Complete Time: 19:40 kdr 01/09 18:13 Order name: Troponin (emerg Dept Use Only); Complete Time: 19:40 [facility] 01/09 19:21 Order name: D-Dimer; Complete Time: 20:44 pk 01/09 21:29 Order name: Manual Differential; Complete Time: 22:11 [facility] 01/09 22:09 Order name: Troponin I [facility] 01/09 22:09 Order name: Troponin I; Complete Time: 00:54 [facility] 01/09 22:18 Order name: Hemoglobin A1c [facility] 01/09 22:59 Order name: SARS-COV-2 RT PCR; Complete Time: 00:54 [facility] 01/09 18:13 Order name: XRAY Chest (1 view); Complete Time: 19:40 [facility] 01/09 18:13 Order name: EKG; Complete Time: 18:14 kdr 01/09 18:13 Order name: Cardiac monitoring; Complete Time: 18:15 kdr 01/09 18:13 Order name: EKG - Nurse/Tech; Complete Time: 18:48 kdr 01/09 18:13 Order name: IV Saline Lock; Complete Time: 18:48 kdr 01/09 18:13 Order name: Labs collected and sent; Complete Time: 18:48 [facility] 01/09 18:13 Order name: O2 Per Protocol; Complete Time: 18:14 kdr 01/09 18:13 Order name: O2 Sat Monitoring; Complete Time: 18:14 kdr 01/09 19:10 Order name: CT Head Brain wo Cont; Complete Time: 19:48 pkl 01/09 19:21 Order name: US Extremity Venous W Compression Brendon; Complete Time: 21:17 pkl 01/09 21:27 Order name: CT Chest For PE Angio pk 01/09 22:09 Order name: Physical Therapy Consult [facility] 01/09 22:17 Order name: Social Service Consult EDRI Administered Medications: 18:40 Drug: Lasix 40 mg Route: IVP; Site: right forearm; 22:24 Follow up: Response: No adverse reaction 20:13 Drug: Magnesium Sulfate 2 grams Route: IVPB; Infused Over: 2 hrs; Site: right forearm; 22:24 Follow up: Response: No adverse reaction; IV Status: Completed infusion Disposition: 01/10/20 21:16 Hospitalization ordered by Ishan Finnegan for Observation. Preliminary diagnosis is Recurrent falls. Elevated Troponin. Pain and weakness both legs. - Bed requested for Telemetry/MedSurg (observation). - Status is Observation. - Condition is Stable. - Problem is new. - Symptoms have improved. Signatures: Dispatcher [employer] EDRI Neha Felix RN RN dw Lam, Pin, MD MD Emanuel Hernandez MD MD kdr Munoz, Edgar RN DIANE [facility] Neto Baca RN RN j Williams Almonte RN RN bp Corrections: (The following items were deleted from the chart) 21:20 21:16 Hospitalization Ordered by Ishan Finnegan MD for Observation. Preliminary jd3 diagnosis is Recurrent falls. Elevated Troponin. Pain and weakness both legs. Bed requested for Telemetry/MedSurg (observation). Status is Observation. Condition is Stable. Problem is new. Symptoms have improved. pkl 21:47 20:12 CORONAVIRUS+MR.LAB.BRZ ordered. EDRI EDRI 22:25 21:20 01/10/2020 21:16 Hospitalization Ordered by Ishan Finnegan MD for Observation. dw Preliminary diagnosis is Recurrent falls. Elevated Troponin. Pain and weakness both legs. Bed requested for Telemetry/MedSurg (observation). Status is Observation. Condition is Stable. Problem is new. Symptoms have improved. jd3 23:00 22:25 01/10/2020 21:16 Hospitalization Ordered by Ishan Finnegan MD for Observation. dw Preliminary diagnosis is Recurrent falls. Elevated Troponin. Pain and weakness both legs. Bed requested for Telemetry/MedSurg (observation). Status is Observation. Condition is Stable. Problem is new. Symptoms have improved. dw 01/10 00:10 01/09 23:00 01/10/2020 21:16 Hospitalization Ordered by Ishan Finnegan MD for wh Observation. Preliminary diagnosis is Recurrent falls. Elevated Troponin. Pain and weakness both legs. Bed requested for Telemetry/MedSurg (observation). Status is Observation. Condition is Stable. Problem is new. Symptoms have improved. dw
--- NOTE | 2020-01-10 21:17 | ER ---
Nurse's Notes [facility] Name: Tonny Vidal Age: 64 yrs Sex: Male : 1955 Arrival Date: 01/10/2020 Time: 17:47 Bed 5 Private MD: Diagnosis: Recurrent falls. Elevated Troponin. Pain and weakness both legs Presentation: 01/09 17:47 Chief complaint: EMS states: LEG PAIN AFTER FALL 3 DAYS AGO, NO NOTED TRAUMA. bp Coronavirus screen: Client presents with at least one sign or symptom that may indicate coronavirus-19. Provider contacted for isolation considerations. Client reports previous positive COVID test result. Ebola Screen: No symptoms or risks identified at this time. Initial Sepsis Screen: Does the patient meet any 2 criteria? No. Patient's initial sepsis screen is negative. Does the patient have a suspected source of infection? No. Patient's initial sepsis screen is negative. Risk Assessment: Do you want to hurt yourself or someone else? Patient reports no desire to harm self or others. Onset of symptoms is unknown. 17:47 Method Of Arrival: EMS: [facility] bp 17:47 Acuity: FAIZA 3 bp Triage Assessment: 17:49 General: Appears in no apparent distress. comfortable, obese, Behavior is cooperative, bp appropriate for age, anxious. Pain: Complains of pain in right leg and left leg. EENT: No deficits noted. Neuro: Level of Consciousness is awake, alert, obeys commands, lethargic, Oriented to person, place, time, situation, Appropriate for age. Cardiovascular: No deficits noted. Respiratory: No deficits noted. GI: No signs and/or symptoms were reported involving the gastrointestinal system. : No signs and/or symptoms were reported regarding the genitourinary system. Derm: No deficits noted. Musculoskeletal: Reports pain in right leg and left leg. Historical: - Allergies: 17:49 No Known Allergies; bp - Home Meds: 17:49 Unable to obtain [Active]; bp - PMHx: 17:49 ADD/ADHD; Cirrhosis; Diabetes - NIDDM; Hypertension; psoriasis; bp - Immunization history:: Adult Immunizations unknown. - Social history:: Smoking status: unknown Patient uses alcohol. Screenin:51 Abuse screen: Denies threats or abuse. Nutritional screening: No deficits noted. em Tuberculosis screening: No symptoms or risk factors identified. Fall Risk Fall in past 12 months (25 points). Total Albrecht Fall Scale indicates Low Risk Score (25-44 pts). Side Rails Up X 2 Placed close to Nursing Station Frequent Obs/Assesments occuring. Assessment: 17:51 General: SEE TRIAGE NOTE. bp 19:30 General: Appears in no apparent distress. Behavior is calm, cooperative, appropriate wh for age. Pain: Complains of pain in left leg and right leg. Neuro: Level of Consciousness is awake, alert, obeys commands, Oriented to person, place, time, situation, Appropriate for age. Cardiovascular: Heart tones S1 S2. Cardiovascular: Edema is 4+ to left ankle and right ankle pitting to left ankle and right ankle. Respiratory: Airway is patent Respiratory effort is even, unlabored, Respiratory pattern is regular, symmetrical, Breath sounds are clear bilaterally. GI: Abdomen is round Abd is rigid. : No signs and/or symptoms were reported regarding the genitourinary system. EENT: No signs and/or symptoms were reported regarding the EENT system. Derm: Skin is intact, Skin is pink, warm \T\ dry. Musculoskeletal: Circulation, motion, and sensation intact. 21:11 Reassessment: Patient appears in no apparent distress at this time. No changes from previously documented assessment. Patient and/or family updated on plan of care and expected duration. Pain level reassessed. Patient is alert, oriented x 3, equal unlabored respirations, skin warm/dry/pink. 22:22 Reassessment: Patient appears in no apparent distress at this time. No changes from previously documented assessment. Patient and/or family updated on plan of care and expected duration. Pain level reassessed. Patient is alert, oriented x 3, equal unlabored respirations, skin warm/dry/pink. Pt already with a room assignment but Pt was Covid positive 2 weeks ago and per Mirza DRAFTING DETAILER we can wait for the rapid covid test before transferring Pt upstaires. Charge Nurse and House Sup was notified. 23:00 Reassessment: Patient appears in no apparent distress at this time. No changes from previously documented assessment. Patient and/or family updated on plan of care and expected duration. Pain level reassessed. Patient is alert, oriented x 3, equal unlabored respirations, skin warm/dry/pink. Pt Positive for Covid Pt room assignment to be assigned by House Sup per Charge Nurse. Vital Signs: 17:47 BP 105 / 55; Pulse 90; Resp 16; Temp 97.7; Pulse Ox 98% ; bp 18:48 BP 101 / 66; Pulse 87; Resp 19; Pulse Ox 100% on R/A; Pain 8/10; em 19:45 BP 102 / 57; Pulse 93; Resp 18; Pulse Ox 100% on R/A; wh 21:11 BP 103 / 65; Pulse 77; Resp 18; Pulse Ox 99% on R/A; wh 22:15 BP 122 / 68; Pulse 79; Resp 18; Pulse Ox 99% ; wh 23:00 BP 111 / 65; Pulse 79; Resp 18; Pulse Ox 100% on R/A; wh ED Course: 17:47 Patient arrived in ED. bp 17:48 Triage completed. bp 17:49 Arm band placed on. bp 17:51 Russell Vail, RN is Primary Nurse. em 17:53 Emanuel Bedolla MD is Attending Physician. kdr 18:30 Patient has correct armband on for positive identification. Placed in gown. Bed in low em position. Call light in reach. Side rails up X2. desk monitor on. Pulse ox on. NIBP on. 18:31 EKG done, by ED staff, reviewed by Emanuel Bedolla MD. em 18:40 Initial lab(s) drawn, by nd, sent to lab. Inserted saline lock: 22 gauge in right em forearm, using aseptic technique. Blood collected. 18:51 XRAY Chest (1 view) In Process Unspecified. EDMS 19:04 Attending Physician role handed off by Emanuel Bedolla MD pkl 19:04 Wellington Flood MD is Attending Physician. pkl 19:31 CT Head Brain wo Cont In Process Unspecified. EDMS 20:05 Notified ED physician of a critical lab result(s). DDimer 7176. wh 21:08 US Extremity Venous W Compression Brendon In Process Unspecified. EDMS 21:14 Ishan Finnegan MD is Hospitalizing Provider. pkl 22:34 CT Chest For PE Angio In Process Unspecified. EDMS 23:04 No provider procedures requiring assistance completed. Patient admitted, IV remains in wh place. Administered Medications: 18:40 Drug: Lasix 40 mg Route: IVP; Site: right forearm; em 22:24 Follow up: Response: No adverse reaction 20:13 Drug: Magnesium Sulfate 2 grams Route: IVPB; Infused Over: 2 hrs; Site: right forearm; 22:24 Follow up: Response: No adverse reaction; IV Status: Completed infusion Outcome: 21:16 Decision to Hospitalize by Provider. pk 23:34 Admitted to Tele accompanied by tech, via wheelchair, room 401. 23:34 Condition: stable 23:34 Instructed on the need for admit. 01/10 00:10 Patient left the ED. Signatures: Dispatcher [employer] Wellington Kmuari MD MD pkl Rittger, Kevin, MD MD kdr Munoz, Edgar, RN RN Fernanda Carrasco Brian RN RN bp
[2020-01-10 21:29] LABS: Anisocytosis 3+; Blood Morphology Comment NOTED (NOT SEEN); Hypochromasia 1+; Platelet Estimate DECR; Poikilocytosis SLIGHT; Polychromasia 2+
[2020-01-10 21:30] LABS: Ovalocytes SLIGHT
--- NOTE | 2020-01-10 22:16 | P.HP ---
Certification for Inpatient Patient admitted to: Observation With expected LOS: <2 Midnights Patient will require the following post-hospital care: Custodial Practitioner: I am a practitioner with admitting privileges, knowledge of patient current condition, hospital course, and medical plan of care. Services: Services provided to patient in accordance with Admission requirements found in Title 42 Section 412.3 of the Code of Federal Regulations <Bk Mercado - Last Filed: 01/10/20 22:53> Patient History Date of Service: 01/10/20 Reason for admission: NSTEMI/BLE weakness History of Present Illness: 64-year-old male with past medical history of alcoholic liver cirrhosis, type 2 diabetes mellitus, hypertension presents to the emergency room complaining of recurring falls and weakness. Patient states that he has noticed worsening lower extremity weakness, more swelling in the lower extremities and is having more difficulty with breathing. Patient had to call EMS today because he fell and could not get back up. Patient has a history of alcoholic liver cirrhosis but states he has not had any alcohol in 2 years and has not smoked in 2 years. Patient also tested positive for coated 2 weeks ago. Patient denies loss of consciousness after is fall. In the ER patient's bilateral lower extremities are significantly bruised. He has 3+ pitting edema. His lower extremities are tender and weak. His oxygen saturation is 98% on room air, pulse rate of 77, respirations of 18 and a blood pressure of 103/65. Chest x-ray shows no acute pathology, CT of the head is negative for intracranial bleed. CTA to rule out PE pending. On arrival patient's D-dimer was 7176. This could be secondary to his multiple falls and bruising in his lower extremities. Patient's troponin is elevated at 0.10 but patient denies any chest pain or history of cardiac issues. Lab work indicates elevated liver enzymes the patient has a history of alcoholic liver cirrhosis with ascites. Ultrasound in the lower extremities done in the ER is negative for DVT. Patient will be placed in observation and further evaluated. Home medications list reviewed: Yes - Past Medical/Surgical History Diabetic: Yes -: DM II -: HTN -: CHF -: Liver cirrhosis, meld score 17 -: Hyperlipidemia -: Obesity -: GERD -: Gastric varices -: H pylori gastritis -: Hernia repair Psychosocial/ Personal History: Patient has significant other. - Family History Father -: Diabetes - Social History Smoking Status: Former smoker Smoking therapy provided: No Patient receptive to therapy: No Alcohol use: No CD- Drugs: No Caffeine use: Yes Place of Residence: Home <Bk Mercado - Last Filed: 01/10/20 22:53> Date of Service: 01/12/20 <Ishan Finneganl - Last Filed: 01/12/20 12:37> Allergies No Known Allergies Allergy (Verified 11/28/19 11:29) Home Medications: Carvedilol [Coreg] 3.125 mg PO BID 01/11/20 Clobetasol Propionate/Emoll [Clobetasol Emollient 0.05% Crm] 15 gm TP BID 01/11/20 Folic Acid 1 mg PO DAILY 01/11/20 Furosemide [Lasix] 40 mg PO BIDL 01/11/20 Lisinopril [Zestril] 20 mg PO DAILY 01/11/20 Metformin ER [Glucophage ER] 500 mg PO BIDWM 01/11/20 Pantoprazole [Protonix Tab] 40 mg PO DAILY 01/11/20 Spironolactone 100 mg PO DAILY 01/11/20 Review of Systems General: As per HPI Eyes: Unremarkable ENT: Unremarkable Respiratory: SOB with Excertion, As per HPI Cardiovascular: Chest Pain, As per HPI Gastrointestinal: Unremarkable Genitourinary: Unremarkable Musculoskeletal: Leg Pain, As per HPI Integumentary: Unremarkable Neurological: Weakness, As per HPI Lymphatics: Unremarkable <Bk Mercado - Last Filed: 01/10/20 22:53> Physical Examination - Vital Signs Temperature: 97.7 F Blood Pressure: 103/65 Pulse: 77 Respirations: 18 Pulse Ox (%): 99 (RA) - Physical Exam General: Alert, In no apparent distress, Oriented x3 HEENT: Atraumatic, Normocephalic, PERRLA, Mucous membr. moist/pink Neck: Supple, Other (Trachea midline) Respiratory: Clear to auscultation bilaterally, Normal air movement Cardiovascular: Edema (3+ pitting edema BLE) Capillary refill: <2 Seconds Gastrointestinal: Normal bowel sounds, Soft and benign, Non-distended Musculoskeletal: No erythema, Swelling, Tenderness Integumentary: No rashes, No breakdown, No significant lesion Neurological: Abnormal strength - Studies Laboratory Data (last 24 hrs) 01/10/20 18:40: PT 20.4 H, INR 1.75 01/10/20 18:40: WBC 8.0, Hgb 8.0 L, Hct 24.2 L, Plt Count 99 L 01/10/20 18:40: Sodium 135 L, Potassium 3.6, BUN 9, Creatinine 0.64, Glucose 186 H, Magnesium 1.5 L, Total Bilirubin 1.7 H, AST 53 H, ALT 26, Alkaline Phosphata se 175 H <Bk Mercado - Last Filed: 01/10/20 22:53> Assessment and Plan - Plan Impression: NSTEMI complicated by history of congestive heart failure, fluid overload and alcoholic liver cirrhosis: Lower extremity weakness with multiple falls in the past 3 days: Anemia of chronic disease: History of alcoholic liver cirrhosis with ascites: Hypomagnesemia: Plan: NSTEMI complicated by history of congestive heart failure, fluid overload and alcoholic liver cirrhosis: Patient's troponin is elevated at 0.1. Will continue to trend. Will place patient on telemetry. Will order echocardiogram for the morning. Patient does not have an echocardiogram on record. Patient's proBNP is slightly elevated at 389. Will start IV Lasix at 40 mg b.i.d. Patient has a history of noncompliance with medications. States he does not take any medicines at this time. Lower extremity weakness with multiple falls in the past 3 days: Over the past 3 days patient has fallen several times with increasing difficulty getting up. Denies any loss of consciousness or trauma to the head back or neck. Lower extremities have 3+ pitting edema and are very tender to touch. He was noted to have an elevated D-dimer of 7176. This CT angiogram to rule out a PE is pending. Ultrasound of the lower extremities was negative for DVT. Elevation in D-dimer could be secondary to the bruising in the lower extremities in the multiple falls over the last 3 days. Patient's oxygen saturations are 98 percent at room air. Physical therapy evaluation. Anemia of chronic disease: Hemoglobin/hematocrit of 8.0/24.2. Continue to monitor. History of alcoholic liver cirrhosis with ascites: Has had paracentesis in the past. Elevated liver enzymes on admitting labs. Hypomagnesemia: Magnesium of 1.5 on admission. Will continue to replace as needed. Discharge Plan: Home Plan to discharge in: 48 Hours - Advance Directives Does patient have a Living Will: No Does patient have a Durable POA for Healthcare: No - Code Status/Comfort Care Code Status Assessed: Yes Time Spent Managing Pts Care (In Minutes): 55 <AndriasujatatiffaniemarcinBk - Last Filed: 01/10/20 22:53> Date of Service: 01/11/20 Patient presents to the hospital with altered mental status, shortness of breath, and confusion. Patient is also having diffuse anasarca. He was found have a UTI. He also has cirrhosis and is not compliant with his medications. He said he has had some dark stools. H&H is being monitor closely. At this time will diurese patient aggressively. He is significantly volume overloaded. He may need a paracentesis. Will try the diuresing with the Lasix drip and monitor his H&H closely. If the nausea hemoglobin remains stable the weekend diuresing fairly effectively possibly go home in the next 24-48 hr. Physical Examination Vitals: Afebrile vital signs are stable Physical exam has been reviewed; patient edematous bilateral lower extremity; patient abdominal distension; patient was on JVP; patient confused to time; scan patient retry scan diffusely Diagnostic data has been reviewed ASST: 1. Anasarca with shortness of breath 2. Confusion secondary to hepatic encephalopathy and UTI 3. Noncompliance 4. Anemia-patient was chronic anemia from his liver disease as well as chronic thrombocytopenia. Monitor his H&H closely 5. History of hypertension and diabetes type 2 PLAN: 1. Continue with IV diuresing 2. Monitor H&H 3. Transfuse as needed 4. IV antibiotic therapy 5. Monitor liver function 6. Monitor renal function as we aggressively diurese patient 7. Monitor oxygenation has patient positive for COVID-19. 8. Poor prognosis if patient develops pneumonia; essential for us to aggressively diurese him and treat him so he does not get worse 9. GI and DVT prophylaxis <Ishan Finnegan - Last Filed: 01/12/20 12:37>
[2020-01-11] MEDS: MORPHINE 2 MG/ML SYR IV PRN ×3 (01:43→12:52)
[2020-01-11 06:10] LABS: Absolute Lymphocytes (CBC) 1.7 K/uL (0.7-4.9); Basophils % 0.6 % (0-1.3); Hematocrit 23.9 % (39.6-49.0); MPV 8.4 fL (7.6-11.3); RBC Red Blood Cell Count 3.02 M/uL (4.33-5.43)
[2020-01-11 07:09] LABS: ALT/SGPT 26 U/L (12-78); AST/SGOT 50 U/L (15-37); Albumin 1.5 g/dL (3.4-5.0); Alkaline Phosphatase 149 U/L (45-117); BUN Blood Urea Nitrogen 9 mg/dL (7-18); Bicarbonate 26 mmol/L (21-32); Bilirubin Total 2.4 mg/dL (0.2-1.0); Glucose Level 127 mg/dL (74-106); Potassium 3.5 mmol/L (3.5-5.1); Protein, Total 6.6 g/dL (6.4-8.2); Sodium Level 136 mmol/L (136-145)
[2020-01-11 07:29] LABS: Anisocytosis 2+; Blood Morphology Comment NOTED (NOT SEEN); Platelet Estimate DECR; Polychromasia SLIGHT; Urine White Blood Cell Casts OK
[2020-01-11] MEDS: INSULIN -REGULAR HUMAN 50 UNIT/0.5 ML ML SQ SCH ×4 (07:30→21:00)
--- NOTE | 2020-01-11 08:10 | EKG ---
Test Date: 2020-01-10 Test Time: 18:32:45 Clinical Training Specialist: CARLOS MEASUREMENT RESULTS: Intervals: Rate: 84 CT: 132 QRSD: 80 QT: 400 QTc: 472 [place]: P: -1 CT: 132 QRS: -32 T: -2 INTERPRETIVE STATEMENTS: Normal sinus rhythm Left axis deviation Low voltage QRS Cannot rule out Anterior infarct, age undetermined Abnormal ECG Compared to ECG 12/24/2019 11:22:05 No significant changes Electronically Signed On 01-11-20 08:09:22 CDT by Nemesio Rachel
[2020-01-11] MEDS: JUVEN PACKET PO SCH ×2 (08:47→21:00)
[2020-01-11] MEDS: ENOXAPARIN 40 MG/0.4 ML SQ SCH (08:47)
[2020-01-11] MEDS ORDERED: ALBUMIN HUMAN 25% 100 ML IV ONE (11:00)
[2020-01-11 11:08] LABS: Absolute Lymphocytes (CBC) 1.9 K/uL (0.7-4.9); Basophils % 0.5 % (0-1.3); Hematocrit 24.8 % (39.6-49.0); Lymphocytes % 24.6 % (15.3-44.8); MPV 8.2 fL (7.6-11.3)
[2020-01-11] MEDS: FENTANYL CITR 100 MCG/2 ML IV PRN ×2 (11:21→15:35)
[2020-01-11 11:49] LABS: ALT/SGPT 25 U/L (12-78); AST/SGOT 53 U/L (15-37); Albumin 1.6 g/dL (3.4-5.0); Alkaline Phosphatase 149 U/L (45-117); BUN Blood Urea Nitrogen 10 mg/dL (7-18); Bicarbonate 27 mmol/L (21-32); Bilirubin Total 2.6 mg/dL (0.2-1.0); Folic Acid, (Folate) 15.5 ng/mL (3.1-17.5); Glucose Level 167 mg/dL (74-106); Magnesium 1.7 mg/dL (1.8-2.4); NT PRO-BNP 196 pg/mL (<125); Potassium 3.8 mmol/L (3.5-5.1); Protein, Total 7.1 g/dL (6.4-8.2); Sodium Level 133 mmol/L (136-145)
[2020-01-11] MEDS: ALBUMIN HUMAN 25% 12.5 GM, FUROSEMIDE 100 MG in NA CHLORIDE 0.9% 40 ML IV SCH ×2 (12:53→20:26)
[2020-01-11] MEDS ORDERED: POTASSIUM CL SA 10 MEQ TAB PO ONE (13:00)
[2020-01-11] MEDS ORDERED: MAGNESIUM SULFATE 1 gm IVPB 1 GM/100 ML BAG IV ONE (13:00)
[2020-01-11] MEDS ORDERED: PNEUMOCOCCAL VACCINE 0.5 ML IMVAC ONE (15:00)
[2020-01-11 16:21] LABS: Urine Appearance CLOUDY; Urine Bilirubin NEGATIVE (NEG); Urine Blood NEGATIVE (NEG); Urine Color YELLOW; Urine Glucose NEGATIVE (NEG); Urine Protein NEGATIVE (NEG); Urine Urobilinogen 0.2 mg/dL (0.2-1.0); Urine pH 6.5 (5.0-7.0)
[2020-01-11 16:26] LABS: Urine Microscopic Reflex ORDER UMIC
[2020-01-11 16:37] LABS: Urine Bacteria 20-50 /HPF (NONE SEEN); Urine Culture Reflex Order REFLEXED; Urine RBC NONE SEEN /HPF (NONE SEEN)
[2020-01-12 06:35] LABS: BUN Blood Urea Nitrogen 10 mg/dL (7-18); Bicarbonate 31 mmol/L (21-32); Glucose Level 120 mg/dL (74-106); Potassium 3.1 mmol/L (3.5-5.1); Sodium Level 137 mmol/L (136-145)
[2020-01-12 06:38] LABS: Magnesium 1.4 mg/dL (1.8-2.4)
[2020-01-12 07:03] LABS: Absolute Lymphocytes (CBC) 1.8 K/uL (0.7-4.9); Basophils % 0.5 % (0-1.3); Hematocrit 21.4 % (39.6-49.0); Lymphocytes % 33.9 % (15.3-44.8); MPV 8.3 fL (7.6-11.3); RBC Red Blood Cell Count 2.71 M/uL (4.33-5.43)
[2020-01-12] MEDS: INSULIN -REGULAR HUMAN 50 UNIT/0.5 ML ML SQ SCH ×4 (07:30→21:00)
[2020-01-12] MEDS ORDERED: Magnesium Sulfate 2gm IVPB 2 G/50 ML BAG IV ONE (07:30)
[2020-01-12] MEDS ORDERED: POTASSIUM CL SA 10 MEQ TAB PO ONE ×2 (08:00→17:00)
[2020-01-12 08:11] LABS: Platelet Estimate DECR
[2020-01-12 08:12] LABS: Anisocytosis 2+; Blood Morphology Comment NOTED (NOT SEEN)
[2020-01-12] MEDS: ENOXAPARIN 40 MG/0.4 ML SQ SCH (08:17)
[2020-01-12] MEDS: JUVEN PACKET PO SCH ×2 (08:17→19:47)
[2020-01-12] MEDS: FENTANYL CITR 100 MCG/2 ML IV PRN (09:32)
[2020-01-12] MEDS ORDERED: NA CHLORIDE 0.9% 250 ML ONE ×2 (09:41→14:31)
--- NOTE | 2020-01-12 12:46 | P.PN ---
Subjective Date of Service: 01/11/20 Patient mentation is improving. However, he still has anasarca. I started him on a Lasix/albumin drip. I am going to try to diurese him very aggressively. He may need paracentesis. Patient is very noncompliant. He still does not really know what is wrong with him- this has been explained to him on numerous occasions. He may just not have agreed memory any obviously is not taking care of himself. He sees a local GI doctor but he has never seen a [facility] even though he is been referred to 1 in the past. His prognosis remains very poor because he is very noncompliant with his care. Review of Systems 10-point ROS is otherwise unremarkable Physical Examination - Vital Signs Temperature: 98.6 F Blood Pressure: 90/50 Pulse: 99 Respirations: 20 Pulse Ox (%): 90 - Physical Exam General: Alert, Oriented x2, Confused Neck: JVD distended Respiratory: Diminished, Crackles/rales Cardiovascular: Regular rate/rhythm, Systolic murmur Gastrointestinal: No rebound, No guarding, Distended, Tenderness Musculoskeletal: Swelling, Tenderness Integumentary: Tenderness/swelling, Other (Dry skin and cracked) Assessment & Plan - Problems (Diagnosis) (1) Anasarca Current Visit: Yes Status: Acute (2) Anemia Current Visit: Yes Status: Acute (3) Thrombocytopenia Current Visit: Yes Status: Acute (4) Hepatic encephalopathy Current Visit: No Status: Acute (5) Alcoholic cirrhosis Current Visit: No Status: Chronic Qualifiers: Ascites presence: with ascites Qualified Code(s): K70.31 - Alcoholic cirrhosis of liver with ascites (6) Diabetes mellitus Onset Date: 05/24/18 Current Visit: No Status: Chronic Qualifiers: Diabetes mellitus type: type 2 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 Continue with diuresing 2. Monitor H&H 3. Possibly schedule paracentesis 4. Lasix/albumin drip 5. IV antibiotics for UTIs 6. Continue with Aldactone therapy as well as propanolol 7. Monitor hemodynamics closely 8. If any active bleeding possible transfer 9. GI and DVT prophylaxis Discharge Plan: Home Plan to discharge in: Greater than 2 days - Advance Directives Does patient have a Living Will: No Does patient have a Durable POA for Healthcare: No - Code Status/Comfort Care Code Status Assessed: Yes Code Status: Full Code Critical Care: No Time Spent Managing PTS Care (In Minutes): 30
--- NOTE | 2020-01-12 12:57 | P.PN ---
Subjective Date of Service: 01/12/20 Patient's hemoglobin suddenly dropped to 6.8. Patient did have 4 L of urine output last night. Patient should of any hemoconcentrated. Hemodynamically he is stable. No melanotic stools noted today. He said he had some black stools before he came into the hospital which we were not aware of. He was confused was not really able to give that history. At this time, he is doing okay and no signs of bleeding. Keep him on a PPI twice daily. Monitor his H&H closely. If it goes down again then may add Sandostatin. Otherwise, if he continues to do okay in his hemoglobin remained stable after the transfusion then we possibly could discharge him soon Review of Systems 10-point ROS is otherwise unremarkable Physical Examination - Vital Signs Temperature: 98.6 F Blood Pressure: 90/50 Pulse: 99 Respirations: 20 Pulse Ox (%): 90 - Physical Exam General: Alert, In no apparent distress, Oriented x2 Respiratory: Diminished, Crackles/rales Cardiovascular: Regular rate/rhythm, Normal S1 S2, Systolic murmur Gastrointestinal: Normal bowel sounds, Distended Musculoskeletal: Swelling Integumentary: Other (skin breakdown) Neurological: Normal strength at 5/5 x4 extr, Sensation intact, Cranial nerves 3-12 intact - Studies Medications List Reviewed: Yes Assessment & Plan - Problems (Diagnosis) (1) Anasarca Current Visit: Yes Status: Acute (2) Anemia Current Visit: Yes Status: Acute (3) Thrombocytopenia Current Visit: Yes Status: Acute (4) Hepatic encephalopathy Current Visit: No Status: Acute (5) Alcoholic cirrhosis Current Visit: No Status: Chronic Qualifiers: Ascites presence: with ascites Qualified Code(s): K70.31 - Alcoholic cirrhosis of liver with ascites (6) Diabetes mellitus Onset Date: 05/24/18 Current Visit: No Status: Chronic Qualifiers: Diabetes mellitus type: type 2 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 Patient with a host of medical issues and now with a hemoglobin of 6.8. 1. Continue with diuresing 2. Transfuse 2 units packed red blood cells. 3. Possibly schedule paracentesis 4. Lasix/albumin drip x 1 dose today(4L of UOP over the last 24hrs) 5. Continue with IV antibiotics for UTIs 6. Continue with Aldactone therapy as well as propanolol 7. Monitor hemodynamics closely 8. No bleeding noted; but he does mention some melanotic/dark stool a few days prior to admission-none since 9. GI and DVT prophylaxis Discharge Plan: Home Plan to discharge in: Greater than 2 days - Advance Directives Does patient have a Living Will: No Does patient have a Durable POA for Healthcare: No - Code Status/Comfort Care Code Status: Full Code Critical Care: No Time Spent Managing PTS Care (In Minutes): 30
[2020-01-12] MEDS: CEFTRIAXONE/SWI 1gm 1 GM/10 ML SYR IVP SCH (13:13)
[2020-01-12] MEDS ORDERED: SODIUM CHLORIDE 0.9% 10ML INJ IV PRN (13:39)
[2020-01-12] MEDS ORDERED: ALBUMIN HUMAN 25% 12.5 GM, FUROSEMIDE 100 MG in NA CHLORIDE 0.9% 40 ML IV SCH (14:00)
[2020-01-12] MEDS: PANTOPRAZOLE 40 MG INJ IVP SCH (19:47)
[2020-01-13 04:44] LABS: BUN Blood Urea Nitrogen 9 mg/dL (7-18); Bicarbonate 33 mmol/L (21-32); Glucose Level 117 mg/dL (74-106); Magnesium 1.6 mg/dL (1.8-2.4); Potassium 3.3 mmol/L (3.5-5.1); Sodium Level 136 mmol/L (136-145)
[2020-01-13 04:52] VITALS: BMI 37.3
[2020-01-13 05:27] LABS: Absolute Lymphocytes (CBC) 1.8 K/uL (0.7-4.9); Basophils % 0.5 % (0-1.3); Hematocrit 27.2 % (39.6-49.0); MPV 8.4 fL (7.6-11.3); RBC Red Blood Cell Count 3.33 M/uL (4.33-5.43)
[2020-01-13] MEDS ORDERED: MAGNESIUM SULFATE 1 gm IVPB 1 GM/100 ML BAG IV ONE (05:43)
[2020-01-13] MEDS ORDERED: POTASSIUM CL SA 10 MEQ TAB PO ONE ×2 (05:44→17:00)
[2020-01-13] MEDS: FENTANYL CITR 100 MCG/2 ML IV PRN ×2 (06:15→21:17)
[2020-01-13] MEDS: INSULIN -REGULAR HUMAN 50 UNIT/0.5 ML ML SQ SCH ×4 (07:24→21:00)
[2020-01-13] MEDS: JUVEN PACKET PO SCH ×2 (07:25→21:00)
[2020-01-13] MEDS: PANTOPRAZOLE 40 MG INJ IVP SCH ×2 (07:25→21:16)
[2020-01-13] MEDS: ENOXAPARIN 40 MG/0.4 ML SQ SCH (07:26)
[2020-01-13] MEDS: CEFTRIAXONE/SWI 1gm 1 GM/10 ML SYR IVP SCH (07:26)
--- NOTE | 2020-01-13 09:49 | RAD REPORT ---
EXAM DESCRIPTION: CT Angiography Chest With Intravenous Contrast CLINICAL HISTORY: The patient is 64 years old and is Male; elevated D-Dimer TECHNIQUE: Axial computed tomographic angiography images of the chest with intravenous contrast. S agittal and coronal reformatted images were created and reviewed. This CT exam was performed using one or more of the following dose reduction techniques: automated exposure control, adjustment of t he mA and/or kV according to patient size, and/or use of iterative reconstruction technique. MIP reconstructed images were created and reviewed. COMPARISON: No relevant prior studies available. FINDINGS: ARTIFACTS: The exam is suboptimal secondary to motion artifact. PULMONARY ARTERIES: The main pulmonary arteries and proximal segmental branches opacify normally and are without filling defect. AORTA: Atherosclerosis of the aorta is present. No thoracic aortic aneurysm. LUNGS: Unremarkable. No mass. No consolidation. PLEURAL SPACE: Unremarkable. No significant effusion. No pneumothorax. HEART: Unremarkable. No cardiomegaly. No significant pericardial effusion. No evidence of RV dysfunction. MEDIASTINUM: Suggestion of multiple esophageal varices are noted. BONES/JOINTS: Mild degenerative change of the bones is noted. No acute fracture. No dislocat ion. SOFT TISSUES: Unremarkable. LYMPH NODES: Unremarkable. No enlarged lymph nodes. LIVER: The visualized liver is heterogeneous with a nodular contour. INTRAPERITONEAL SPACE: Moderate amount of ascites is noted within the upper abdomen. IMPRESSION: 1. The main pulmonary arteries and proximal segmental branches opacify normally and ar e without filling defect. However, the remainder of the pulmonary vessels are poorly evaluated seco ndary to motion artifact. 2. Cirrhotic liver, ascites, and esophageal varices. Electronically signed by: Malia Morrissey MD 01/10/2020 10:52 PM CDT Due to temporary technical issues with the PACS/Fluency reporting system, reports are being signed by the in house radiologist without review as a courtesy to ensure prompt reporting. The interpreting r adiologist is fully responsible for the content of the report.
--- NOTE | 2020-01-13 11:04 | P.PN ---
Subjective Date of Service: 01/13/20 Chief Complaint: NSTEMI/BLE weakness Subjective: No new changes Physical Examination - Vital Signs Temperature: 98.7 F Blood Pressure: 119/61 Pulse: 82 Respirations: 19 Pulse Ox (%): 97 - Studies Medications List Reviewed: Yes Assessment & Plan - Problems (Diagnosis) (1) Hepatic encephalopathy Current Visit: No Status: Acute (2) Lower extremity edema Onset Date: 05/24/18 Current Visit: No Status: Acute (3) Diabetes mellitus Onset Date: 05/24/18 Current Visit: No Status: Chronic Qualifiers: Diabetes mellitus type: type 2 Diabetes mellitus mcc insulin use: without mcc use Diabetes mellitus complication status: without complication Qualified Code(s): E11.9 - Type 2 diabetes mellitus without complications (4) HTN (hypertension) Onset Date: 05/24/18 Current Visit: No Status: Chronic Qualifiers: Hypertension type: essential hypertension Physician Review Additional Text: COVID positive No respiratory symptoms Oxygen supplementation p.r.n. Anemia due to chronic disease/chronic blood loss Hemoglobin stable after blood transfusion monitor CBC daily Hypokalemia ,Hypomagnesemia Replace electrolytes Monitor renal parameters UTI Cultures pending Continue antibiotics Will change antibiotic as per the sensitivity Bilateral lower extremity swelling Cirrhosis liver Anasarca Continue diuresis Continue with Aldactone therapy as well as propanolol Monitor hemodynamics closely GI and DVT prophylaxis Time Spent Managing Pts Care (In Minutes): 42
[2020-01-14 00:13] VITALS: O2SAT 99
[2020-01-14 03:50] LABS: BUN Blood Urea Nitrogen 8 mg/dL (7-18); Bicarbonate 33 mmol/L (21-32); Glucose Level 119 mg/dL (74-106); Magnesium 1.7 mg/dL (1.8-2.4); Potassium 3.9 mmol/L (3.5-5.1); Sodium Level 139 mmol/L (136-145)
[2020-01-14] MEDS: INSULIN -REGULAR HUMAN 50 UNIT/0.5 ML ML SQ SCH ×2 (07:30→11:30)
[2020-01-14] MEDS ORDERED: MAGNESIUM SULFATE 1 gm IVPB 1 GM/100 ML BAG IV ONE (08:00)
[2020-01-14] MEDS ORDERED: POTASSIUM CL SA 10 MEQ TAB PO ONE (08:00)
--- NOTE | 2020-01-14 08:45 | ECHO ---
HEIGHT: 5 ft 6 in WEIGHT: 231 lb 0 oz DATE OF STUDY: 01/13/[address]: Bk Mercado 2-DIMENSIONAL: YES M.MODE: YES DOPPLER: YES COLOR FLOW: YES TDS: NO PORTABLE: NO DEFINITY: NO BUBBLE STUDY: NO DIAGNOSIS: NSTEMI CARDIAC HISTORY: CATHERIZATION: NO SURGERY: NO PROSTHETIC VALVE: NO PACEMAKER: NO MEASUREMENTS (cm) DIASTOLIC (NORMALS) SYSTOLIC (NORMALS) IVSd 1.5 (0.6-1.2) LA Diam 4.2 (1.9-4.0) LVEF 79% LVIDd 4.9 (3.5-5.7) LVIDs 2.6 (2.0-3.5) %FS 48% LVPWd 1.4 (0.6-1.2) Ao Diam 3.4 (2.0-3.7) 2 DIMENSIONAL ASSESSMENT: RIGHT ATRIUM: NORMAL LEFT ATRIUM: ENLARGED RIGHT VENTRICLE: NORMAL LEFT VENTRICLE: MILD LEFT VENTRICULAR HYPERTROPHY TRICUSPID VALVE: MILD TRICUSPID REGURGITATION MITRAL VALVE: MILD MITRAL REGURGITATION, MITRAL ANNULAR CALCIFICATION PULMONIC VALVE: NORMAL AORTIC VALVE: NORMAL PERICARDIAL EFFUSION: NONE AORTIC ROOT: NORMAL LEFT VENTRICULAR WALL MOTION: NORMAL. DOPPLER/COLOR FLOW: PULMONARY HYPERTENSION IS PRESENT. COMMENTS: HYPERDYNAMIC LEFT VENTRICULAR EJECTION FRACTION >60%, NORMAL WALL MOTION. MILD TO MODERATE CONCENTRIC LEFT VENTRICULAR HYPERTROPHY. MILD MITRAL AND TRICUSPID REGURGITATION. MODERATE PULMONARY HYPERTENSION, RIGHT VENTRICULAR SYSTOLIC PRESSURE 45-50mmHg, RIGHT ATRIAL PRESSURE IS >20mmHg. TECHNOLOGIST: PRABHU LAURENT
[2020-01-14] MEDS: FENTANYL CITR 100 MCG/2 ML IV PRN (08:48)
[2020-01-14] MEDS: PANTOPRAZOLE 40 MG INJ IVP SCH (08:49)
[2020-01-14] MEDS: CEFTRIAXONE/SWI 1gm 1 GM/10 ML SYR IVP SCH (08:49)
[2020-01-14] MEDS: JUVEN PACKET PO SCH (08:49)
[2020-01-14] MEDS: ENOXAPARIN 40 MG/0.4 ML SQ SCH (08:49)
--- NOTE | 2020-01-14 09:36 | P.DS ---
Admission Date: 01/12/20 Discharge Date: 01/14/20 Disposition: DC HOME/HOME HEALTH CARE Discharge Condition: FAIR Reason for Admission: NSTEMI/BLE weakness - Problems (1) Hepatic encephalopathy Status: Acute (2) Lower extremity edema Onset Date: 05/24/18 Status: Acute (3) Diabetes mellitus Onset Date: 05/24/18 Status: Chronic Qualifiers: Diabetes mellitus type: type 2 Diabetes mellitus [facility] Diabetes mellitus complication status: without complication Qualified Code(s): E11.9 - Type 2 diabetes mellitus without compl ications (4) HTN (hypertension) Onset Date: 05/24/18 Status: Chronic Qualifiers: Hypertension type: essential hypertension Qualified Code(s): I10 - Essential (primary) hypertension Brief History of Present Illness: 64-year-old male with past medical history of alcoholic liver cirrhosis, type 2 diabetes mellitus, hypertension presents to the emergency room complaining of recurring falls and weakness. Patient states that he has noticed worsening lower extremity weakness, more swelling in the lower extremities and is having more difficulty with breathing. Patient had to call EMS today because he fell and could not get back up. Patient has a history of alcoholic liver cirrhosis but states he has not had any alcohol in 2 years and has not smoked in 2 years. Patient also tested positive for coated 2 weeks ago. Patient denies loss of consciousness after is fall. In the ER patient's bilateral lower extremities are significantly bruised. He has 3+ pitting edema. His lower extremities are tender and weak. His oxygen saturation is 98% on room air, pulse rate of 77, respirations of 18 and a blood pressure of 103/65. Chest x-ray shows no acute pathology, CT of the head is negative for intracranial bleed. CTA to rule out PE pending. On arrival patient's D-dimer was 7176. This could be secondary to his multiple falls and bruising in his lower extremities. Patient's troponin is elevated at 0.10 but patient denies any chest pain or history of cardiac issues. Lab work indicates elevated liver enzymes the patient has a history of alcoholic liver cirrhosis with ascites. Ultrasound in the lower extremities done in the ER is negative for DVT. Patient will be placed in observation and further evaluated. Hospital Course: The patient was admitted and was monitored closely under telemetry. Started on IV diuresis laceration had anasarca. CT PE protocol was negative for PE. Urine culture was positive for enterococcus. His COVID 19 test was positive.He had no respiratory symptoms. Oxygen supplementation p.r.n. The patient underwent blood transfusion for anemia. Hemoglobin stable after blood transfusion He also had Hypokalemia ,Hypomagnesemia which was replaced . Monitored renal parameters Bilateral lower extremity swelling, and anasarca , because of Cirrhosis liver Continued diuresis , Continued with Aldactone therapy as well as propanolol Initial plan was to discharge him to SNF but patient wanted to go home with home health. The patient is being discharged in a stable condition with an advice to follow up with PCP in 1 week Vital Signs/Physical Exam: Temp Pulse Resp BP Pulse Ox 98.0 F 81 19 119/64 96 01/14/20 08:00 01/14/20 08:00 01/14/20 08:00 01/14/20 08:00 01/14/20 08:00 General: Alert, In no apparent distress HEENT: Atraumatic, Normocephalic Neck: Supple Respiratory: Clear to auscultation bilaterally, Normal air movement Cardiovascular: Regular rate/rhythm, Normal S1 S2 Capillary refill: <2 Seconds Gastrointestinal: Soft and benign, W/out hepatosplenomegaly Musculoskeletal: No clubbing, No swelling Integumentary: No rashes, No breakdown Neurological: Normal speech, Normal strength at 5/5 x4 extr Lymphatics: No axilla or inguinal lymphadenopathy Laboratory Data at Discharge: WBC 6.2 K/uL (4.3-10.9) D 01/13/20 04:30 Hgb 9.0 g/dL (13.6-17.9) L 01/13/20 04:30 Hct 27.2 % (39.6-49.0) L 01/13/20 04:30 Plt Count 78 K/uL (152-406) L 01/13/20 04:30 PT 20.4 SECONDS (9.5-12.5) H 01/10/20 18:40 INR 1.75 01/10/20 18:40 Sodium 139 mmol/L (136-145) 01/14/20 03:18 Potassium 3.9 mmol/L (3.5-5.1) 01/14/20 03:18 BUN 8 mg/dL (7-18) 01/14/20 03:18 Creatinine 0.57 mg/dL (0.55-1.3) 01/14/20 03:18 Glucose 119 mg/dL (74-106) H 01/14/20 03:18 Magnesium 1.7 mg/dL (1.8-2.4) L 01/14/20 03:18 Total Bilirubin 2.6 mg/dL (0.2-1.0) H 01/11/20 10:58 AST 53 U/L (15-37) H 01/11/20 10:58 ALT 25 U/L (12-78) 01/11/20 10:58 Alkaline Phosphatase 149 U/L (45-117) H 01/11/20 10:58 Troponin I 0.09 ng/mL (0.0-0.045) H 01/11/20 14:39 Home Medications: Carvedilol [Coreg] 3.125 mg PO BID 01/11/20 Clobetasol Propionate/Emoll [Clobetasol Emollient 0.05% Crm] 15 gm TP BID 01/11/20 Folic Acid 1 mg PO DAILY 01/11/20 Lisinopril [Zestril] 20 mg PO DAILY 01/11/20 Metformin ER [Glucophage ER*] 500 mg PO BIDWM 01/11/20 Pantoprazole [Protonix Tab*] 40 mg PO DAILY 01/11/20 Spironolactone 100 mg PO DAILY 01/11/20 Amox/Clavulanate [Augmentin 875-125 Tab] 875 mg PO BID #14 tab 01/14/20 Furosemide [Lasix*] 40 mg PO BIDL #60 tab 01/14/20 predniSONE [Deltasone*] 10 mg PO DAILY #7 tab 01/14/20 New Medications: Amox/Clavulanate [Augmentin 875-125 Tab] 875 mg PO BID #14 tab predniSONE [Deltasone*] 10 mg PO DAILY #7 tab Furosemide [Lasix*] 40 mg PO BIDL #60 tab Diet: Renal Time spent managing pt's care (in minutes): 42
[2020-01-14 13:24] VITALS: BP 141/76; TEMP 98.2
== END 2020-01-14 13:05 | disposition home health service (06) | DRG 432 ==
LOC: ER 17:46 → ERHOLD 23:28 → 4TH 23:35 → OBSVTOIN 01-12 12:59
PROVIDERS: ADMIT Hospitalist; ATTEND Family Medicine
PROC: 30233N1 Transfusion of Nonautologous Red Blood Cells into Peripheral Vein, Percutaneous Approach (ICD-10-PCS; principal; 2020-01-12)
DX: K70.31 Alcoholic cirrhosis of liver with ascites (principal); I21.4 Non-ST elevation (NSTEMI) myocardial infarction; U07.1 COVID-19; N39.0 Urinary tract infection, site not specified; K72.90 Hepatic failure, unspecified without coma; E11.9 Type 2 diabetes mellitus without complications; I10 Essential (primary) hypertension; E78.5 Hyperlipidemia, unspecified; E83.42 Hypomagnesemia; E87.6 Hypokalemia; L40.9 Psoriasis, unspecified; B95.2 Enterococcus as the cause of diseases classified elsewhere; D69.6 Thrombocytopenia, unspecified; D63.1 Anemia in chronic kidney disease; K21.9 Gastro-esophageal reflux disease without esophagitis; Z91.81 History of falling; Z87.891 Personal history of nicotine dependence; Z79.84 Long term (current) use of oral hypoglycemic drugs; Z79.899 Other long term (current) drug therapy; Z91.14 Patient's other noncompliance with medication regimen
CPT/HCPCS: 36415; 36430; 70450; 71045; 71275; 80048; 80053; 80076; 81003; 81015; 82607; 82746; 82947; 83036; 83605; 83735; 83880; 84132; 84484; 85014; 85018; 85025; 85379; 85610; 86850; 86900; 86901; 87077; 87086; 87088; 87186; 93005; 93306; 93970; 96365; 96366; 96375; 99285; C9113; G0378; J0696; J1650; J1940; J2270; J3010; J3475; J7050; P9016; P9047; U0003

== ENCOUNTER 2020-03-04 11:38 | Emergency (ER) | payer OTHER ==
[2020-03-04 12:44] LABS: Absolute Lymphocytes (CBC) 1.7 K/uL (0.7-4.9); Basophils % 1.3 % (0-1.3); Hematocrit 29.2 % (39.6-49.0); Lymphocytes % 27.7 % (15.3-44.8); MPV 8.9 fL (7.6-11.3); RBC Red Blood Cell Count 3.66 M/uL (4.33-5.43)
[2020-03-04 12:54] LABS: Potassium 5.1 mmol/L (3.5-5.1)
--- NOTE | 2020-03-04 12:54 | RAD REPORT ---
EXAM DESCRIPTION: CT - Head Brain Wo Cont - 03/04/2020 12:44 pm CLINICAL HISTORY: hypertension Headache, drowsiness, hypertension COMPARISON: Head Brain Wo Cont dated 01/10/2020; Head Brain Wo Cont dated 08/04/2018 TECHNIQUE: All CT scans are performed using dose optimization technique as appropriate and may inclu de automated exposure control or mA/KV adjustment according to patient size. FINDINGS: No intracranial hemorrhage, hydrocephalus or extra-axial fluid collection.Mild generalized brain atrophy is seen.No areas of brain edema or evidence of midline shift. 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 Mild polypoid mucosal thickening seen left maxillary antrum. The paranasal sinuses and mastoids are o therwise clear. The calvarium is intact. IMPRESSION: No acute intracranial abnormality.
[2020-03-04] MEDS ORDERED: INSULIN -REGULAR HUMAN 50 UNIT/0.5 ML ML ONE ×2 (13:16→14:52)
[2020-03-04] MEDS ORDERED: NA CHLORIDE 0.9% 500 ML ONE (13:16)
--- NOTE | 2020-03-04 15:57 | ER ---
Nurse's Notes [facility] Name: Tonny Cardona Age: 64 yrs Sex: Male : 1955 Arrival Date: 03/04/2020 Time: 11:40 Bed 19 Private MD: Anil Tavera H Diagnosis: Hyperglycemia, unspecified Presentation: 03/04 11:49 Chief complaint: Patient states: BP yesterday high, SBP 200s. Denies headache, ca1 dizziness, N/V, lightheadedness. Coronavirus screen: Client denies travel out of the [place] in the last 14 days. At this time, the client does not indicate any symptoms associated with coronavirus-19. The client reports previous COVID testing was negative. Date of collection: January 2020. Ebola Screen: Patient negative for fever greater than or equal to 101.5 degrees Fahrenheit, and additional compatible Ebola Virus Disease symptoms Patient denies exposure to infectious person. Patient denies travel to an Ebola-affected area in the 21 days before illness onset. No symptoms or risks identified at this time. Initial Sepsis Screen: Does the patient meet any 2 criteria? No. Patient's initial sepsis screen is negative. Does the patient have a suspected source of infection? No. Patient's initial sepsis screen is negative. Risk Assessment: Do you want to hurt yourself or someone else? Patient reports no desire to harm self or others. Onset of symptoms was March 04, 2020. 11:49 Method Of Arrival: Ambulatory ca1 11:49 Acuity: FAIZA 3 ca1 Historical: - Allergies: 11:53 No Known Allergies; ca1 - Home Meds: 13:30 Metformin Oral [Active]; jl7 - PMHx: 11:53 Cirrhosis; Diabetes - NIDDM; Hypertension; psoriasis; ADD/ADHD; ca1 - PSHx: 11:53 Hernia repair; ca1 - Immunization history:: Adult Immunizations up to date, Flu vaccine is not up to date. - Social history:: Smoking status: Patient/guardian denies using tobacco, the patient reports quitting approximately 2 years ago. - Family history:: not pertinent. - Hospitalizations: : No recent hospitalization is reported. Screenin:29 Abuse screen: Denies threats or abuse. Denies injuries from another. Nutritional jl7 screening: No deficits noted. Tuberculosis screening: No symptoms or risk factors identified. Fall Risk IV access (20 points). Total Albrecht Fall Scale indicates No Risk (0-24 pts). Assessment: 12:11 Reassessment: Dr. Chacko at bedside. jl7 12:29 General: Appears in no apparent distress. uncomfortable, Behavior is calm, cooperative, jl7 appropriate for age. Pain: Denies pain. Neuro: Level of Consciousness is awake, alert, obeys commands, Oriented to person, place, time, situation. Cardiovascular: Denies chest pain, Patient's skin is warm and dry. Respiratory: Airway is patent Respiratory effort is even, unlabored, Respiratory pattern is regular, symmetrical, Denies shortness of breath. GI: No signs and/or symptoms were reported involving the gastrointestinal system. Patient currently denies diarrhea, nausea, vomiting. : No signs and/or symptoms were reported regarding the genitourinary system. Denies burning with urination. EENT: No signs and/or symptoms were reported regarding the EENT system. Derm: Skin is pink, warm \T\ dry. Musculoskeletal: No signs and/or symptoms reported regarding the musculoskeletal system. 13:08 Reassessment: Patient appears in no apparent distress at this time. No changes from jl7 previously documented assessment. Patient and/or family updated on plan of care and expected duration. Pain level reassessed. Patient is alert, oriented x 3, equal unlabored respirations, skin warm/dry/pink. 14:00 Reassessment: Patient appears in no apparent distress at this time. No changes from jl7 previously documented assessment. Patient and/or family updated on plan of care and expected duration. Pain level reassessed. Patient is alert, oriented x 3, equal unlabored respirations, skin warm/dry/pink. 15:00 Reassessment: Patient appears in no apparent distress at this time. No changes from jl7 previously documented assessment. Patient and/or family updated on plan of care and expected duration. Pain level reassessed. Patient is alert, oriented x 3, equal unlabored respirations, skin warm/dry/pink. Vital Signs: 11:49 BP 132 / 56; Pulse 77; Resp 18 S; Temp 98.3; Pulse Ox 98% on R/A; Weight 106.59 kg (R); ca1 Height 5 ft. 6 in. (167.64 cm) (R); Pain 0/10; 12:31 BP 110 / 59; Pulse 71; Resp 23; Pulse Ox 100% ; jl7 13:33 BP 125 / 59; Pulse 70; Resp 20; Pulse Ox 100% ; jl7 15:00 BP 130 / 52; Pulse 71; Resp 19; Pulse Ox 100% ; jl7 16:18 BP 117 / 74; Pulse 78; Resp 17; Pulse Ox 100% ; jl7 11:49 Body Mass Index 37.93 (106.59 kg, 167.64 cm) ca1 ED Course: 11:40 Patient arrived in ED. ag5 11:40 Anil Tavera MD is Private Physician. ag5 11:52 Triage completed. ca1 11:53 Arm band placed on right wrist. ca1 11:54 Denise Patterson RN is Primary Nurse. jl7 12:11 Irving Chacko MD is Attending Physician. rn 12:29 Patient has correct armband on for positive identification. Placed in gown. Bed in low jl7 position. Call light in reach. Side rails up X 1. monitor worker on. Pulse ox on. NIBP on. 12:29 Initial lab(s) drawn, by me, sent to lab. EKG done, by ED staff, reviewed by Irving Chacko MD. Inserted saline lock: 20 gauge in right antecubital area, using aseptic technique. Blood collected. 12:44 CT Head Brain wo Cont In Process Unspecified. EDMS 16:18 No provider procedures requiring assistance completed. IV discontinued, intact, jl7 bleeding controlled, No redness/swelling at site. Pressure dressing applied. Administered Medications: 13:06 Drug: Insulin Regular Human 10 units {Co-Signature: dominique (Lucía Norman RN).} Route: Sub-Q; jl7 Site: right upper arm; 14:00 Follow up: Response: No adverse reaction jl7 13:07 Drug: NS 0.9% 500 ml Route: IV; Rate: bolus; Site: right antecubital; jl7 13:50 Follow up: Response: No adverse reaction; IV Status: Completed infusion; IV Intake: jl7 500ml 14:46 Drug: Insulin Regular Human 10 units {Co-Signature: dominique (Lucía Norman RN).} Route: IVP; jl7 Site: right antecubital; 16:19 Follow up: Response: No adverse reaction; Blood sugar is lowered jl7 14:46 Drug: Insulin Regular Human 5 units {Co-Signature: tw2 (Lucía Norman RN).} Route: Sub-Q; jl7 Site: right upper arm; 16:19 Follow up: Response: No adverse reaction; Blood sugar is lowered 7 Intake: 13:50 IV: 500ml; Total: 500ml. 7 Outcome: 15:57 Discharge ordered by . rn 16:18 Discharged to home ambulatory. jl7 16:18 Condition: stable 16:18 Discharge instructions given to patient, Instructed on discharge instructions, follow up and referral plans. Demonstrated understanding of instructions, follow-up care. 16:20 Patient left the ED. 7 Signatures: Dispatcher [employer] EDMS Irving Chacko MD MD rn Leal, Jahala, RN RN jl7 Neelam Dent RN RN ca1 Eliseo Schneider ag5 Lucía Norman RN tw2 Corrections: (The following items were deleted from the chart) 13:30 11:53 Home Meds: None; ca1 jl7
--- NOTE | 2020-03-04 15:57 | EDPHYS ---
Physician Documentation [facility] Name: Tonny Cardona Age: 64 yrs Sex: Male : 1955 Arrival Date: 03/04/2020 Time: 11:40 Bed 19 Private MD: Anil Tavera H ED Physician Irving Chacko HPI: 03/04 13:09 This 64 yrs old Male presents to ER via Ambulatory with complaints of High rn Blood Pressure. 13:09 Onset: The symptoms/episode began/occurred at an unknown time. 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 Pt reports told by home nurse that blood pressure was high, not sure value, told family and they made him come, reports feels fine, would not have come to ER on his own. . Historical: - Allergies: 11:53 No Known Allergies; ca1 - Home Meds: 13:30 Metformin Oral [Active]; jl7 - PMHx: 11:53 Cirrhosis; Diabetes - NIDDM; Hypertension; psoriasis; ADD/ADHD; ca1 - PSHx: 11:53 Hernia repair; ca1 - Immunization history:: Adult Immunizations up to date, Flu vaccine is not up to date. - Social history:: Smoking status: Patient/guardian denies using tobacco, the patient reports quitting approximately 2 years ago. - Family history:: not pertinent. - Hospitalizations: : No recent hospitalization is reported. ROS: 13:09 Constitutional: Negative for fever, chills, and weight loss, Eyes: Negative for injury, rn pain, redness, and discharge, Cardiovascular: Negative for chest pain, palpitations, and edema, Respiratory: Negative for shortness of breath, cough, wheezing, and pleuritic chest pain, Abdomen/GI: Negative for abdominal pain, nausea, vomiting, diarrhea, and constipation, MS/Extremity: Negative for injury and deformity, Skin: Negative for injury, rash, and discoloration, Neuro: Negative for headache, weakness, numbness, tingling, and seizure. Exam: 13:04 ECG was reviewed by the Attending Physician. rn 13:09 Constitutional: This is a well developed, well nourished patient who is awake, alert, rn and in no acute distress. Head/Face: Normocephalic, atraumatic. Eyes: Pupils equal round and reactive to light, extra-ocular motions intact. Lids and lashes normal. Conjunctiva and sclera are non-icteric and not injected. Cornea within normal limits. Periorbital areas with no swelling, redness, or edema. Cardiovascular: Regular rate and rhythm. No pulse deficits. Respiratory: Speaking full sentences. No increased work of breathing, no retractions or nasal flaring. Abdomen/GI: soft, non-tender MS/ Extremity: Pulses equal, no cyanosis. Neurovascular intact. Full, normal range of motion. Equal circumference. Neuro: Awake and alert, GCS 15, oriented to person, place, time, and situation. Cranial nerves II-XII grossly intact. Motor strength 5/5 in all extremities. Sensory grossly intact. Vital Signs: 11:49 BP 132 / 56; Pulse 77; Resp 18 S; Temp 98.3; Pulse Ox 98% on R/A; Weight 106.59 kg (R); ca1 Height 5 ft. 6 in. (167.64 cm) (R); Pain 0/10; 12:31 BP 110 / 59; Pulse 71; Resp 23; Pulse Ox 100% ; jl7 13:33 BP 125 / 59; Pulse 70; Resp 20; Pulse Ox 100% ; jl7 15:00 BP 130 / 52; Pulse 71; Resp 19; Pulse Ox 100% ; jl7 16:18 BP 117 / 74; Pulse 78; Resp 17; Pulse Ox 100% ; jl7 11:49 Body Mass Index 37.93 (106.59 kg, 167.64 cm) ca1 MDM: 12:11 Patient medically screened. rn 15:56 Differential diagnosis: Malignant HTN, hyperglycemia, dehydration, cirrhosis. Data rn reviewed: vital signs, nurses notes, lab test result(s), EKG, radiologic studies, CT scan, and as a result, I will discharge patient. Counseling: I had a detailed discussion with the patient and/or guardian regarding: the historical points, exam findings, and any diagnostic results supporting the discharge/admit diagnosis, lab results, radiology results, the need for outpatient follow up, to return to the emergency department if symptoms worsen or persist or if there are any questions or concerns that arise at home. Response to treatment: the patient's symptoms have markedly improved after treatment, and as a result, I will discharge patient. Special discussion: I discussed with the patient/guardian in detail that at this point there is no indication for admission to the hospital. It is understood, however, that if the symptoms persist or worsen the patient needs to return immediately for re-evaluation. 15:56 ED course: Pt asymptomatic, normal vitals, improving blood glucose, no AG, no acidosis, rn will have patient f/u with pcp for further outpt diabetic management. . 03/04 12:15 Order name: CBC with Diff; Complete Time: 12:51 rn 03/04 12:15 Order name: Basic Metabolic Panel; Complete Time: 12:58 rn 03/04 12:25 Order name: Glucose; Complete Time: 12:58 mh5 03/04 12:38 Order name: Glucose, Ancillary Testing; Complete Time: 12:51 EDMS 03/04 13:48 Order name: Glucose; Complete Time: 14:31 jl7 03/04 13:59 Order name: Glucose, Ancillary Testing; Complete Time: 14:31 EDMS 03/04 12:15 Order name: IV Start; Complete Time: 12:27 rn 03/04 12:15 Order name: EKG; Complete Time: 12:16 rn 03/04 12:15 Order name: CT Head Brain wo Cont; Complete Time: 12:58 rn 03/04 15:44 Order name: Glucose, Ancillary Testing; Complete Time: 15:55 EDMS 03/04 12:15 Order name: EKG - Nurse/Tech; Complete Time: 12:27 rn EC:04 Rate is 73 beats/min. Rhythm is regular. LA interval is normal. QRS interval is normal. rn QT interval is normal. T waves are Normal. No ST changes noted. Clinical impression: NSR w/ Non-specific ST/T Changes. Interpreted by me. Reviewed by me. Administered Medications: 13:06 Drug: Insulin Regular Human 10 units {Co-Signature: tw2 (Lucía Norman RN).} Route: Sub-Q; jl7 Site: right upper arm; 14:00 Follow up: Response: No adverse reaction jl7 13:07 Drug: NS 0.9% 500 ml Route: IV; Rate: bolus; Site: right antecubital; jl7 13:50 Follow up: Response: No adverse reaction; IV Status: Completed infusion; IV Intake: jl7 500ml 14:46 Drug: Insulin Regular Human 10 units {Co-Signature: tw2 (Lucía Norman RN).} Route: IVP; jl7 Site: right antecubital; 16:19 Follow up: Response: No adverse reaction; Blood sugar is lowered [facility] 14:46 Drug: Insulin Regular Human 5 units {Co-Signature: tw2 (Lucía Norman RN).} Route: Sub-Q; jl7 Site: right upper arm; 16:19 Follow up: Response: No adverse reaction; Blood sugar is lowered jl7 Disposition: 03/04/20 15:57 Discharged to Home. Impression: Hyperglycemia, unspecified. - Condition is Stable. - Discharge Instructions: Hyperglycemia, Blood Glucose Monitoring, Adult. - Medication Reconciliation Form, Thank You Letter, Antibiotic Education, Prescription Opioid Use form. - Follow up: Private Physician; When: As needed; Reason: Recheck today's complaints, Re-evaluation by your physician. - Problem is new. - Symptoms have improved. Signatures: Dispatcher [employer] EDMS Irving Chacko MD MD rn Leal, Jahala, RN RN jl7 Neelam Dent RN RN ca1 Lucía Norman RN tw2 Corrections: (The following items were deleted from the chart) 13:30 11:53 Home Meds: None; ca1 jl7 16:20 15:57 03/04/2020 15:57 Discharged to Home. Impression: Hyperglycemia, unspecified. [facility] Condition is Stable. Forms are Medication Reconciliation Form, Thank You Letter, Antibiotic Education, Prescription Opioid Use. Follow up: Private Physician; When: As needed; Reason: Recheck today's complaints, Re-evaluation by your physician. Problem is new. Symptoms have improved. rn
[2020-03-04 17:05] VITALS: TEMP 98.3
[2020-03-04 17:06] VITALS: O2SAT 100
[2020-03-04 17:13] VITALS: BP 117/74
--- OUTSIDE RECORDS SUMMARY | 2020-03-05 20:43 | XMS REPORT | Clinical Summary ---
:1955 Author Organization [facility] Address [address] [place] [address] Care Team Providers Name Role Phone Unavailable [...] times daily. Active Problems Problem Noted Date COVID-19 virus infection 01/20/2020 Overview: Positive test 01/10/2020 SOB (shortness of breath) 12/24/2019 Cirrhosis 06/04/2019 [...] Encounters Date Type Specialty Care Team Description 02/28/2020 Telephone Transplant Hepatology Bautista Stein (Scheduled 02/26 covid testing, lab, mri & bmds appt s w/pt. Pt asked me to call inform priscilla about ap pts. Called priscilla mccurdy o answer detailed message left. Itinerary sonya d. ) 02/28/2020 Telephone Transplant Hepatology Bautista Stein (Scheduled 02/26 covid testing, lab, mri & bmds appt s w/pt. Pt asked me to call inform priscilla about ap pts. Called priscilla mccurdy o answer detailed message left. Itinerary sonya d. ) 02/27/2020 Orders Only Transplant Hepatology Sally Martínez organ transplant status (Primary Dx); Samira Arita RN Alcoholic cirrh osis of liver with ascites (HCC); Screening for m alignant neoplasm 02/19/2020 Telephone Transplant Hepatology Mauricio, Follow -up Samira Arita RN 02/12/2020 Telephone Transplant Hepatology Mauricio, Follow -up Samira Arita RN 02/05/2020 Audio - Hepatology Juarez Ruthann Cirrhosis of li tadeo without ascites, unspecified hepatic cirrhosis type (HCC) (Primary Dx); Arian Suh NP Anemia, unspeci fied type; COVID-19 virus infection; History of alco hol use; Portal hyperten johann (HCC); Hepatic encepha lopathy (HCC); Ascites due to alcoholic cirrhosis (HCC); 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 ; Immunity status testing; Screening for c ancer 02/04/2020 Documentation Hepatology Sowmya Dudley MA 01/27/2020 Telephone Transplant Hepatology Mauricio, Follow -up Samira Arita RN 01/22/2020 Documentation Transplant Hepatology Marta Stein 01/22/2020 Outside Orders Radiology Ankur Dan MD 01/21/2020 Orders Only Transplant Hepatology Mauricio, Screen ing for malignant neoplasm (Primary Dx); Samira Arita RN Awaiting organ transplant status; Alcoholic cirrh osis of liver with ascites (HCC) 01/21/2020 Telephone Transplant Hepatology Emil, Appoin tment Marta Lindsey (Cancelled 01/28 2 appts and rescheduled to 02/04 (per coordinato r request) w/[place]. Itinerary sonya d to pt.) 01/17/2020 Documentation Transplant Hepatology Samira Martínez RN 01/17/2020 Telephone Transplant Hepatology Mauricio, Follow -up Samira Arita RN 01/13/2020 Telephone Hepatology Yohannes, convert to virt gal San MA 01/10/2020 Telephone Transplant Hepatology Mauricio, Follow -up Samira Arita RN 01/07/2020 Telephone Transplant Hepatology Mauricio, Follow -up Samira Arita RN 01/06/2020 Telephone Transplant Hepatology Mauricio, Follow -up Samira Arita RN 01/06/2020 Telephone Transplant Hepatology Mauricio, Follow -up Samira Arita RN 01/06/2020 Orders Only Transplant Hepatology Mauricio, Awaiti ng organ transplant status (Primary Dx); Samira Arita RN Screening for m alignant neoplasm; Cirrhosis of li tadeo without ascites, unspecified hepatic cirrhosis type (HCC) 01/03/2020 Documentation Transplant Hepatology Marta Stein 01/01/2020 Documentation Transplant Hepatology Marta Stein 12/31/2019 Anesthesia Event Gastroenterology Ban Muse MD 12/31/2019 Telephone Transplant Hepatology Bautista Stein (Scheduled 12/27 8 hepatology clin ic ([facility] f/u) appt w/pt. Ityulissa miller ) 12/29/2019 Surgery Gastroenterology CELESTINE Centeno MD ENDOSCOPY,TRUDY NG 12/29/2019 Anesthesia Event GastroenterBan Mc MD 12/28/2019 Anesthesia Event Gastroenterology Clair Henderson, PAPER PRODUCTION ENGINEER 12/28/2019 Anesthesia Event Gastroenterology Clair Henderson, PAPER PRODUCTION ENGINEER 12/24/2019 Hospital Encounter General Internal Lizzie Metcalf [...] (HCC) 10/22/2019 Telephone Transplant Hepatology Bautista Stein (Scheduled 01/28 2 clinic, mri & b mds appts w/pt. Ithermann rodney) 10/08/2019 Telephone Transplant Hepatology Mauricio, Follow -up Samira Arita RN 10/07/2019 Orders Only Transplant Hepatology Sally Martínez organ transplant status; Samira Arita RN Cirrhosis of li tadeo without ascites, unspecified hepatic cirrhosis type (HCC); Screening for m alignant neoplasm 10/03/2019 Orders Only Transplant Hepatology Mauricio, Awaiti ng organ transplant status (Primary Dx); Samira Arita RN Screening for e ndocrine, metabolic and immunity disorder; Cirrhosis of li tadeo without ascites, unspecified hepatic cirrhosis type (HCC); Screening for m alignant neoplasm 09/26/2019 Telephone Transplant Hepatology Emil, Appoin tment (LVM. Marta Lindsye REscheduled mis sed mri due now & clinic, mri, bm ds & feghali due Sep t.) 08/29/2019 Documentation Transplant Hepatology Samira Martínez, DIANE 08/26/2019 Orders Only Transplant Hepatology Mauricio, Cirrho sis of liver without ascites, unspecified hepatic cirrhosis type (HCC) (Primary Dx); Samira Arita RN Screening for e ndocrine, metabolic and immunity disorder; Awaiting organ transplant status 08/26/2019 Abstract Transplant Hepatology Samira Martínez RN 08/20/2019 Telephone Transplant Hepatology Jamison, Error Veena Alexandre MD 08/20/2019 Documentation Transplant Hepatology Veena Swift MD 08/20/2019 Telephone Transplant Hepatology Jamison, Cirrho sis Follow-up Veena Alexandre MD 08/20/2019 Documentation Transplant Hepatology Eddie Steinberg RN 08/16/2019 Telephone Transplant Hepatology MONE Irvin RN 07/12/2019 UNOS Charge Visit Transplant Shamar Michaels Jr., MD 07/12/2019 Telephone Transplant Hepatology Emil, Appoin tment Marta Lindsey (Cancelled 07/27 0 hepatology appt and scheduled 08/19 clinic & mri ap pt w/pt. Itlisaar y mailed.) 07/12/2019 Documentation Transplant Hepatology Maricel Barber, DIANE 07/10/2019 Orders Only Transplant Hepatology Emil, Metabo [...] 07/08/2019 Orders Only Transplant Hepatology Maricel Barber, Nargis muller cirrhosis of liver with ascites (HCC) (Primary Dx); DIANE Portal hyperten johann (HCC); Metabolic syndr ome; Abnormal liver function 06/13/2019 Abstract Transplant Hepatology Chary Irvin RN 06/13/2019 Abstract Transplant Hepatology Chary Irvin RN 06/04/2019 Surgery Linda, R & L CATH / Jaspal Ibanez, CORONARY ANGIO S / PCI 06/04/2019 Hospital Encounter Jaspal Mckeon MD 05/27/2019 Telephone Transplant Hepatology Albaro, Follow -up DIANE Diez 05/08/2019 Office Visit Hepatology Kleber Anaya Alcoholic cirrh osis of liver with ascites (HCC) (Primary Dx); LWEIS Cook History of alcohol use; Ruthann Pizarro Screening for c ancer; LEWIS Suh 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 ; Portal hyperten johann (HCC); Ascites due to alcoholic cirrhosis (HCC); Psoriasis; Hepatic encepha lopathy (HCC); Screening for e ndocrine, metabolic and immunity disorder; Immunity status testing 04/29/2019 Telephone Transplant Hepatology Bautista Stein (LVMRandolph Lindsey Calling to conf ir 04/30 appts.) 04/12/2019 Telephone Transplant Hepatology Bautista [...] -up DIANE Diez 04/08/2019 Telephone Transplant Hepatology Albaro Follow -up DIANE Diez 03/21/2019 Telephone Transplant Hepatology Albaro Follow -up DIANE Diez 03/08/2019 Telephone Transplant Hepatology Bautista Stein (Scheduled 03/29 9 clinic & mri ap pt w/pt. Itinerar y mailed.) 03/07/2019 Telephone Transplant Hepatology Bautista Stein (LVAdarsh Lindsey Calling to [facility] end of Febo dominik and clinic due end of March. ) 03/06/2019 Telephone Transplant Hepatology Albaro, Follow -up DIANE Diez 03/06/2019 Telephone Transplant Hepatology JACQUI Irvin RN 03/06/2019 Telephone Transplant Hepatology Albaro, Follow -up DIANE Diez after 03/04/2019 Immunizations Name Dates Previously Given Next Due [...] Treatment Date Type Specialty Care Team Description 03/13/2020 Office Visit Cardiology Yuan Jorgensen MD [address] [address] [phone] 03/13/2020 Orders Only Lab Yuan Jorgensen MD [address] [address] [phone] 03/13/2020 Appointment Radiology Yuan Jorgensen MD [address] [facility] [address] [place], [place] [address] [phone] 03/13/2020 Appointment Veena Swift MD 66[address] [facility] [address] [place], [place] [address] [phone] Health Maintenance Due Date Last Done Comments PNEUMOCOCCAL VACCINE 2-64 YEARS AT RISK (1 of 1 - 12/23/2018 10/28/2018 PPSV23) MEDICARE ANNUAL WELLNESS [...] 07/10/2019 12:00 Resu lts for this AM METAL BUGGY OPERATOR procedure are i n the results section. COMPREHENSIVE Routine 07/10/2019 12:00 Metabolic syndr ome Results for this METABOLIC PANEL AM METAL BUGGY OPERATOR Pre-transplant procedure are in evaluation for chronic the r esults liver disease section. Cirrhosis of liver without ascites, unspecified hepatic cirrhosis type ( HCC) Abnormal liver function PROTHROMBIN TIME/INR Routine 07/10/2019 12:00 Metabolic syndrome Results for this AM METAL BUGGY OPERATOR Pre-transplant procedure are in evaluation for chronic the r esults liver disease section. Cirrhosis of liver without ascites, unspecified hepatic cirrhosis type ( HCC) Abnormal liver function CBC W/PLT COUNT & Routine 07/10/2019 12:00 Metabolic syn drome Results for this AUTO DIFFERENTIAL AM METAL BUGGY OPERATOR Pre-transplant procedur e are in evaluation for chronic the r esults liver disease section. Cirrhosis of liver without ascites, unspecified hepatic cirrhosis type ( HCC) Abnormal liver function ALPHA FETOPROTEIN Routine 07/10/2019 12:00 Metabolic syn drome Results for this (AFP), TUMOR MARKER AM METAL BUGGY OPERATOR Pre-transplant proced ure are in evaluation for chronic the r esults liver disease section. Cirrhosis of liver without ascites, unspecified hepatic cirrhosis type ( HCC) Abnormal liver function REPORT OF PROCEDURE - 06/05/2019 1:52 ENDOSCOPY SCAN PM METAL BUGGY OPERATOR CARDIAC CATH REPORT - 06/05/2019 1:52 SCAN PM METAL BUGGY OPERATOR VASCULAR DIAGRAM 06/05/2019 1:51 -SCAN PM METAL BUGGY OPERATOR STENT / CAROTID MCR 06/04/2019 9:46 Hepatic cirrhos is, - IP PROC ONLY AM METAL BUGGY OPERATOR unspecified hepatic cirrhosis type, unspecified whether ascites present (HCC) Case Notes (3)CASE 6TOP R & L CATH / CORONARY 06/04/2019 9:46 AM METAL BUGGY OPERATOR Hepatic cirrhosis, unspecified ANGIOS / PCI hepatic cirrhosis type, unspecified whether ascites present (HCC) Case Notes (3)CASE 6TOP CBC W/PLT COUNT & AUTO Routine 06/04/2019 8:38 AM Results for this DIFFERENTIAL METAL BUGGY OPERATOR procedure are i n the results section. CBC W/PLT COUNT & AUTO Routine 06/04/2019 8:38 AM Results for this DIFFERENTIAL METAL BUGGY OPERATOR procedure are i n the results section. BASIC METABOLIC PANEL Routine 06/04/2019 8:38 AM Results for this (7) METAL BUGGY OPERATOR procedure are i n the results section. CBC W/PLT COUNT & AUTO Routine 05/08/2019 1:37 PM Alcoholic Results for this DIFFERENTIAL METAL BUGGY OPERATOR cirrhosis of liver procedure are in with ascites (HCC) the resul ts section. ALPHA FETOPROTEIN Routine 05/08/2019 1:37 PM Screening for Re sults for this (AFP), TUMOR MARKER METAL BUGGY OPERATOR cancer procedur e are in the results section. PROTHROMBIN TIME/INR Routine 05/08/2019 1:37 PM Alcoholic Results for this METAL BUGGY OPERATOR cirrhosis of liver procedure are in with ascites (HCC) the resul ts section. CBC W/PLT COUNT & AUTO Routine 05/08/2019 1:37 PM Alcoholic Results for this DIFFERENTIAL METAL BUGGY OPERATOR cirrhosis of liver procedure are in with ascites (HCC) the resul ts section. HEPATIC FUNCTION PANEL Routine 05/08/2019 1:37 PM Alcoholic Results for this METAL BUGGY OPERATOR cirrhosis of liver procedure are in with ascites (HCC) the resul ts section. BASIC METABOLIC PANEL Routine 05/08/2019 1:37 PM Alcoholic Results for this (7) METAL BUGGY OPERATOR cirrhosis of liver procedure are in with ascites (HCC) the resul ts section. MISCELLANEOUS LAB Routine 05/08/2019 1:37 PM History of alcoh ol ORDER METAL BUGGY OPERATOR use after 03/04/2019 Results EKG-SCANNED (12/31/2019 3:30 PM CDT)Only the [...] : TESTED 70 - 110 mg/dL [facility] [address] [place] [address] CE [facility]TER [facility], [address]: Oxygen Furnace Operator/Etcher Electrolytic ID = [id number] for RADHA MURGUIA Specimen Blood Performing Organization Address City/State/Zipcode Phone Number [facility] MEDICAL [address] [place] [phone] CENTER Hepatic function panel (12/30/2019 4:33 AM CDT)Only the most recent of6 results within the time period is included. Protein, Total 5.8 (L) 6.0 - 8.3 gm/dL [facility] Albumin 1.9 (L) 3.5 - 5.0 g/dL [facility] Total Bilirubin 2.6 (H) 0.2 - 1.2 mg/dL [facility] Bilirubin, Direct 1.6 (H) 0.1 - 0.5 mg/dL [facility] Alkaline Phosphatase 142 40 - 150 U/L [facility] AST 57 (H) 5 - 34 U/L [facility] ALT 25 6 - 55 U/L [facility] Specimen Blood Narrative Performed At Oxygen Furnace Operator ID - KRISHNA L [facility] Specimen slightly icteric Performing Organization Address City/State/Zipcode Phone Number [facility] [address] [place] [address] CENTER REPORT OF PROCEDURE - ENDOSCOPY URL (12/29/2019 11:44 AM CDT) Narrative Performed At This result has an attachment that is no t available. REPORT OF PROCEDURE - ENDOSCOPY URL (12/29/2019 11:29 AM CDT) Narrative Performed At This result has an attachment that is no t available. CBC with platelet count + automated diff (12/29/2019 4:55 AM CDT)Only the most recent of7 resultswithin the time period is included. WBC 8.0 3.5 - 10.5 K/L [facility] RBC 3.16 (L) 4.63 - 6.08 M/L [facility] Hemoglobin 7.3 (L) 13.7 - 17.5 GM/DL [facility] Hematocrit 24.0 (L) 40.1 - 51.0 % [facility] MCV 75.9 (L) 79.0 - 92.2 fL [facility] MCH 23.1 (L) 25.7 - 32.2 pg [facility] MCHC 30.4 (L) 32.3 - 36.5 GM/DL [facility] RDW 23.2 (H) 11.6 - 14.4 % [facility] Platelets 90 (L) 150 - 450 K/CU MM [facility] MPV 9.9 9.4 - 12.4 fL [facility] nRBC 0 0 - 0 /100 WBC [facility] % Neutros 55 % [facility] % Lymphs 22 % [facility] % Monos 19 % [facility] % Eos 1 % [facility] % Baso 0 % [facility] # Neutros 4.42 1.78 - 5.38 K/L [facility] # Lymphs 1.78 1.32 - 3.57 K/L [facility] # Monos 1.49 (H) 0.30 - 0.82 K/L [facility] # Eos 0.06 0.04 - 0.54 K/L [facility] # Baso 0.02 0.01 - 0.08 K/L [facility] Immature Granulocytes-Relative 2 (H) 0 - 1 % C HI [facility] Specimen Blood Performing Organization Address City/State/Zipcode Phone Number [facility] [address] [place] [address] CENTER Prothrombin time/INR (12/29/2019 4:55 AM CDT)Only the most recent of5 results within the time period is included. Protime 19.7 (H) 11.9 - 14.2 seconds [facility] INR 1.7 <=5.9 [facility] Specimen Blood Narrative Performed At Effective 10/24/2018: PT Reference Range [facility] Change New: 11.9-14.2Previous: 11.7-14.7 RECOMMENDED COUMADIN/WARFARIN INR THERAPY RANGES STANDARD DOSE: 2.0-3.0Includes: PROPHYLAXIS for venous thrombosis, systemic embolization; TREATMENT for venous thrombosis and/or pulmonary embolus. HIGH RISK: Target INR is 2.5-3.5 for patients wiht mechanical heart valves. Performing Organization Address [facility] Hospital[facility] Phone Number [facility] [address] [place] [address] CENTER Basic Metabolic Panel (12/29/2019 4:55 AM CDT)Only the most recent of6 results within the time period is included. Sodium 129 (L) 136 - 145 meq/L [facility] Potassium 4.0 3.5 - 5.1 meq/L [facility] Chloride 102 98 - 107 meq/L [facility] CO2 24 22 - 29 meq/L [facility] BUN 9 7 - 21 mg/dL [facility] Creatinine 0.68 0.57 - 1.25 mg/dL [facility] Glucose 123 (H) 70 - 105 mg/dL [facility] Calcium 7.2 (L) 8.4 - 10.2 mg/dL [facility] EGFR 118Comment: ESTIMATED GFR IS mL/min/1.73 sq m [facility] NOT ACCURATE [facility] CLEARANCE IN PREDICTING GLOMERULAR FILTRATION RATE. ESTIMATED GFR IS NOT APPLICABLE FOR DIALYSIS PATIENTS. Specimen Blood Narrative Performed At Oxygen Furnace Operator ID - PIAYA L [facility] Specimen slightly icteric Performing Organization Address City/[facility]/Zipcode Phone Number [facility] [address] [address] CENTER Manual Differential (12/28/2019 5:21 AM CDT) % Neutros 81 % [facility] % Lymphs 3 % [facility] % Monos 10 % [facility] % Eos 2 % [facility] % Baso 1 % [facility] % Bands 3 0 - 10 % [facility] # Neutros 6.89 (H) 1.78 - 5.38 K/ul [facility] # Lymphs 0.26 (L) 1.32 - 3.57 K/ul [facility] # Monos 0.85 (H) 0.30 - 0.82 K/uL [facility] # Eos 0.17 0.04 - 0.54 K/uL [facility] # Baso 0.09 (H) 0.01 - 0.08 K/uL [facility] # Bands 0.26 0.00 - 0.80 K/uL [facility] Total Counted [address] [facility] WBC Morphology Normal [facility] Platelet Morphology Normal [facility] Polychromasia 1+ few [facility] Hypochromia 2+ moderate [facility] Anisocytosis 2+ moderate [facility] Microcytes 2+ moderate [facility] Macrocytes 1+ few [facility] Poikilocytes [address]+ [address] [facility] Target Cells 1+ few [facility] Schistocytes 1+ few [facility] Ovalocytes 1+ few [facility] Tear Drop Cells 1+ few [facility] Plano Cells 1+ few [facility] Artifact Present [facility] Platelet Conc Decreased [facility] Specimen Blood Narrative Performed At Oxygen Furnace Operator ID - CarterAndreaUlisses Ragland [facility] User comments: Slide comments: Performing Organization Address City/[facility]/Zipcode Phone Number [address] [address] CENTER Blood Culture - Routine (Right Venipuncture) (12/26/2019 6:11 PM CDT)Only the most recent of2 resultswithin the time period is included. Result No growth in 5 days [facility] Specimen Blood Performing Organization Address [facility]/Zipcode Phone Number [address] [address] [place] Vitamin B12 and Folate (12/26/2019 4:24 AM CDT) Vitamin B12 873 (H) 213 - 816 pg/mL [facility] Folate 12.30 >=7.00 ng/mL [facility] Specimen Blood Narrative Performed At Oxygen Furnace Operator ID - EDASI [facility] Performing Organization Address City/[facility]/Zipcode Phone Number [address] [address] CENTER Hemoglobin and hematocrit (12/25/2019 3:56 PM CDT) Hemoglobin 8.6 (L) 13.7 - 17.5 GM/DL [facility] Hematocrit 30.2 (L) 40.1 - 51.0 % [facility] Specimen Blood Narrative Performed At Oxygen Furnace Operator ID - [id number] [facility] Performing Organization Address City/[facility]/Zipcode Phone Number [address] [address] CENTER Iron, TIBC, % sat. (without ferritin) (12/25/2019 12:02 PM CDT) Iron 29.0 (L) 40.0 - 160.0 ug/dL [facility] TIBC 151 (L) 250 - 450 ug/dL [facility] Iron % Saturation 19 (L) 20 - 55 % [facility] Specimen Blood Narrative Performed At Oxygen Furnace Operator ID - [facility] Performing Organization Address [facility] Hospital[facility] Phone Number [address] [address] CENTER Ferritin (12/25/2019 12:02 PM CDT) Ferritin 73.10 5.00 - 275.00 ng/mL [facility] Specimen Blood Narrative Performed At Oxygen Furnace Operator ID - [facility] Performing Organization Address City/[facility] Phone Number [address] [address] [place] Comprehensive metabolic panel (12/25/2019 4:55 AM CDT)Only the most recent of3 resultswithin the time period is included. Protein, Total 5.7 (L) 6.0 - 8.3 gm/dL [facility] Albumin 1.7 (L) 3.5 - 5.0 g/dL [facility] Alkaline Phosphatase 124 40 - 150 U/L [facility] Total Bilirubin 2.0 (H) 0.2 - 1.2 mg/dL [facility] Sodium 134 (L) 136 - 145 meq/L [facility] Potassium 4.2 3.5 - 5.1 meq/L [facility] Chloride 107 98 - 107 meq/L [facility] CO2 23 22 - 29 meq/L [facility] BUN 12 7 - 21 mg/dL [facility] Creatinine 0.74 0.57 - 1.25 mg/dL [facility] Glucose 284 (H) 70 - 105 mg/dL [facility] Calcium 7.3 (L) 8.4 - 10.2 mg/dL [facility] AST 40 (H) 5 - 34 U/L [facility] ALT 20 6 - 55 U/L [facility] EGFR 107Comment: ESTIMATED mL/min/1.73 sq m [facility] GFR IS NOT ACCURATE [facility] CREATININE CLEARANCE IN PREDICTING GLOMERULAR FILTRATION RATE. ESTIMATED GFR IS NOT APPLICABLE FOR DIALYSIS PATIENTS. Specimen Blood Narrative Performed At Oxygen Furnace Operator ID - EDASI [facility] Performing Organization Address City/State/Zipcode Phone Number [facility] [address] [place] [address] CENTER XR chest 1 view portable / bedside (12/24/2019 6:17 PM CDT) Specimen Narrative Performed At FINAL REPORT [facility] TECHNIQUE: Frontal view of the chest. INDICATION: [...] MD Report Verified Date/Time:12/24/2019 18:52:34 Reading Location: [facility] [id number] Consult R [facility] Room Procedure Note Interface, External Ris In [...] Verified Date/Time: 12/24/2019 1 8:52:34 Reading Location: [facility] [id number] Consult R [facility] Performing Organization Address City/[facility]/Zipcode Phone Number GE RIS PLATELET ESTIMATION (10/07/2019 9:28 AM CDT)Only the most recent of2 results within the time period is included. Platelet Estimate DECREASED (A) ADEQUATE [facility] Specimen Narrative Performed At FASTING:YES [facility] FASTING: YES Resulting Agency Comment Performing Organization Information: Site ID: [id number] [facility] Address: [address] [place] [phone] Director: Terrell Romeo Performing Organization Address City/State/Zipcode Phone Number [facility] [address] [place] [address] [facility] Alpha fetoprotein (AFP), tumor marker (10/07/2019 9:28 AM CDT)Only the most recent of3 resultswithin the time period is included. Alpha-Fetoprotein 3.2 <6.1 ng/mL [facility] Comment: This test was performed using the Jono Coulte r chemiluminescent method. Values obtained from different assay methods cannot be used interchangeably. AFP levels, regardless of value, should not be interpreted as absolute evidence of the presence or absence of disease. Specimen Blood Narrative Performed At FASTING:YES [facility] FASTING: YES Resulting Agency Comment Performing Organization Information: Site ID: [id number] Name: [facility] Address: [address] [place] [address] , [place] [address] Director: Dr. Terrell faria Performing Organization Address City/State/Zipcode Phone Number [facility] [address] [place] [address] [facility] CBC with platelet count + automated [...] Agency Comment Performing Organization Information: Site ID: [id number] Name: [facility] Address: [address] [place] [phone] Director: Terrell Romeo Performing Organization Address [facility] Phone Number [facility] [address] [place] [address] [facility] Bilirubin, direct (10/07/2019 9:28 AM CDT) Bilirubin, Total 2.4 (H) 0.2 - 1.2 mg/dL [facility] Bilirubin, Direct 0.7 (H) < OR = 0.2 mg/dL [facility] Bilirubin, Indirect 1.7 (H) 0.2 - 1.2 mg/dL (calc) [facility] Specimen Blood Narrative Performed At FASTING:YES [facility] FASTING: YES Resulting Agency Comment Performing Organization Information: Site ID: [id number] Name: [facility] Address: [address] [place] [phone] Director: Terrell Romeo Performing Organization Address [facility] Phone Number [facility] [address] [place] [address] [facility] CARDIAC CATH REPORT - SCAN (06/05/2019 1:52 PM METAL BUGGY OPERATOR) Narrative Performed At This result has an attachment that is no t available. VASCULAR DIAGRAM -SCAN (06/05/2019 1:51 PM METAL BUGGY OPERATOR) Narrative Performed At This result has an attachment that is no t available. Miscellaneous lab test (05/08/2019 1:37 PM METAL BUGGY OPERATOR) Scan Result [facility] Specimen Blood Narrative Performed At This result has an attachment that is no t available. Performing Organization Address City/[facility] Phone Number [facility] [address] [place], [place] after 03/04/2019 Insurance Payer Benefit Plan / Group Subscriber ID Type Phone A ddress MEDICARE MEDICARE A B xxxxxxxxxxx Medicare Advance Directives For more information, please contact:[place] [address] [address] [place], [place] [phone] Code Status Date Activated Date Inactivated Comments Full Code 12/24/2019 5:39 PM 12/30/2019 1:05 PM This code status was determined by: Patient Full Code 06/04/2019 8:04 AM 06/04/2019 9:17 PM This code status was determined by: Patient Full Code 10/27/2018 11:47 PM 10/31/2018 4:20 PM This code status was determined by: Patient
--- OUTSIDE RECORDS SUMMARY | 2020-03-05 20:43 | XMS REPORT | Clinical Summary ---
:1955 Author Organization [facility] Address [address] [place] [address] Care Team Providers Name Role Phone Unavailable [...] 20 yrs) 02/27/2020 Results Not on fileafter 03/04/2019 Insurance Payer Benefit Plan / Subscriber ID Effective Dates Phone Addre ss Type Group [facility] SELF-PAY xxxxxxxxx 2015-Prese [phone] [id number] SELF-PAY UNSCREENED [address] [place] [address] [phone] (Work) Advance Directives Code Status Date Activated Date Inactivated Comments Full Code 06/15/2010 2:59 PM 06/17/2010 2:54 PM Full Code 06/04/2010 6:03 AM 06/05/2010 6:33 PM
--- OUTSIDE RECORDS SUMMARY | 2020-03-05 20:47 | XMS REPORT | Continuity of Care Document ---
:1955 Author Organization [facility] t Address [address] [place] [address] Care Team Providers Name Role Phone Rosalia Stein Attending Clinician Unavailable Mauricio CONTRERAS R Attending Clinician Unavailable Angeli Pizarro NP Attending Clinician Luis Enrique MELENDREZ Attending Clinician Unavailable Alli Dan MD Attending Clinician Yohannes MELENDREZ Attending Clinician Unavailable Porsche Muse MD Attending Clinician LOUIS Attending Clinician Unavailable Louis GOMEZ Attending Clinician Compa GOMEZ Attending Clinician Zee Florian MD Attending Clinician Jacobo GOMEZ Attending Clinician Sera Henderson CRNA Attending Clinician [phone] Harika GOMEZ Attending Clinician Bettie Swift MD Attending Clinician Maury Steinberg RN Attending Clinician Unavailable Albaro CONTRERAS Attending Clinician Unavailable Jame Michaels MD Attending Clinician Sunil RN Attending Clinician Unavailable Monae An MD Attending Clinician MONAE AN Attending Clinician Unavailable Héctor SAUCEDO, Raman Attending Clinician RAMAN GLASER Attending Clinician Unavailable ALLI DAN Attending Clinician Unavailable Doctor Unassigned, Name Attending Clinician Unavailable Yumiko Rod MD Attending Clinician BUBBA LI Attending Clinician Unavailable COMPA Admitting Clinician Unavailable MONAE AN Admitting Clinician Unavailable BUBBA LI Admitting Clinician Unavailable Payers Payer Name Policy Policy Number Effective Expiration Source Type Date Date MEDICAREMEDICARE A xxxxxxxxxxx [facility] Problems Condition Condition Condition Status Onset Resolution Last Treating Co mments Source Name Details Category Date Date Treatment Clinician Date COVID-19 COVID-19 Disease Active Overview: [facility] virus virus 8-24 Positive [facility] - infection infection 00:00: test Medi jeevan 00 01/10/2020 Center SOB SOB Disease Active [facility] (shortness (shortness 7-28 Esther kes - of breath) of breath) 00:00: Me dical 00 [place] Cirrhosis Cirrhosis Disease Active [facility] 1-07 [facility] - 00:00: Medical 00 [place] History of History of Disease Active 2018-[address] alcohol alcohol 0-21 [facility] - use use 00:00: Medical 00 [place] 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 Psoriasis Psoriasis Disease Active Last [facility] 7[facility]24 [facility] - 00:00: t & Plan: Medical 00 Continue Center follow up with dermatolo gy/rheuma tology. Immunity Immunity Disease Active [facility] status status 7-11 [facility] - testing testing 00:00: Medical 00 Center SBP SBP Disease Active [facility] (spontaneo (spontaneo 6-04 Esther kes - us us 00:00: Medical bacterial bacterial 00 Cent er peritoniti peritoniti s) s) Portal Portal Disease Active [facility] hypertensi hypertensi 6-04 Esther kes - on on 00:00: Medical 00 Center Septic Septic Disease Active [facility] shock shock 6- [facility] - 00:00: Medical 00 Center Hepatic Hepatic Disease Active [facility] encephalop encephalop 6-04 Esther kes - athy athy 00:00: Medical 00 Center Sepsis Sepsis Disease Active [facility] 6- [facility] - 00:00: Medical 00 Center Alcoholic Alcoholic Disease Active Last [facility] cirrhosis cirrhosis 10-03 Assessmen Isael garcia - of liver of liver 00:00: t & Plan: Med ical with with 00 Cirrhosis Center ascites ascites secondary to ETOH/AGUILAR . He will continue follow up with hepatolog y. Ascites Ascites Disease Active Last [facility] due to due to 10-03 Assessmen Esthershante - alcoholic alcoholic 00:00: t & Plan: M edical cirrhosis cirrhosis [address] and leg swelling is controlle d with Lasix 40 mg and Aldactone 100 mg a day; restrict salt to 2 gm per day. Low carb but high protein diet. Screening Screening Disease Active Last [facility] for cancer for cancer 10-03 [facility]men [facility] - 00:00: t & Plan: Medical 00 Cirrhosis Center , regardles s of etiology, is a risk factor for hepatocel lular carcinoma (HCC), with an annual incidence of 1.5-7%. We recommend surveilla nce for HCC with abdominal imaging and alphafeto protein every 6 months. MRI 07/17 did not show any liver lesion. 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 Thrombocyt Thrombocyt Disease Active H arris openia openia Health History of Past Illness Condition Condition Condition Status Onset Resolution Last Treating Co mments Source Name Details Category Date Date Treatment Clinician Date Portal Portal Disease Resolve 2019-2019-03-18 2019-03-18 [facility] hypertensi hypertensi d 10-03 00:00:00 19:07:40 [facility] - on on 00:00: Medical 00 [place] Encephalop Encephalop Disease Resolve 2018-2019-03-18 2019-03-18 [facility] melany mosley d 10-03 00:00:00 19:07:52 [facility] - 00:00: Medical 00 Center Allergies, Adverse Reactions, Alerts This patient has no known allergies or adverse reactions. Family History Family Member Diagnosis Comments Start Date Stop Date Source Natural brother Diabetes [facility] Natural brother Hypertension [facility] Natural father Diabetes [facility] Natural mother Liver disease [facility] Natural sister Cancer [facility] Social History Social Habit Start Date Stop Date Quantity Comments Source History [facility] - Alcohol Std Drinks Medica [facility] History [facility] - Alcohol Binge Medical [address] Sex Assigned At [facility] History SDOH 2018-10-03 2018-10-03 1 [facility] - Alcohol Frequency 00:00:00 00:00:00 [facility] History of tobacco 2017-10-03 Current smoker I [facility] - use 00:00:00 [facility] Cigarettes smoked 2015-12-15 2015-12-15 [facility] current (pack per 00:00:00 00:00:00 day) - Reported Cigarette 2015-12-15 2015-12-15 [facility] pack-years 00:00:00 00:00:00 Alcohol intake 2015-12-15 2015-12-15 Current drinker [facility] 00:00:00 00:00:00 of alcohol (finding) Alcohol Comment 2010-06-15 2010-06-15 6 packs/day-last [facility] 00:00:00 00:00:00 time yesterday Smoking Status Start Date Stop Date Source Former smoker 2020-02-16 00:00:00 2020-02-16 00:00:00 [facility] Current every day 2015-12-15 00:00:00 [facility] smoker Medications Ordered Filled Start Stop Current Ordering Indication Dosage Frequency Signature Comments Components Source Medication Medication Date Date Medication? Clinician (SIG) Name Name omeprazole 2020-0 2020- No 40mg QD Take [address] (PRILOSEC) 12-29 08-03 by mouth Luke s - 40 MG 09:55: 00:00 daily. Medical capsule 47 :00 Center thiamine 2020- No 100mg QD Take [address] (VITAMIN 12-29 08-03 mg by [facility] - B-1) 100 MG 09:55: 00:00 mouth Medi jeevan tablet 47 :00 daily. Center clobetasoL Yes 1{appli Q.5D Apply 1 C [...] 1{appli Q.5D Apply [address] (TEMOVATE) 12-17 08- cation} applicatio [facility] - 0.05 % 00:00: 00:00 n Medical cream 00 :00 topically Center 2 (two) times daily. pitavastati Yes 2mg QD Take [address] n calcium 7-11 by mouth [facility] - (LIVALO) 2 09:19: daily . Medi jeevan mg Tab 47 Center tablet thiamine 2019- No TK [address] 100 mg Tab 6- D [facility] - tablet 00:00: 00:00 Medical 00 :00 [place] ALPRAZolam 2020- No TK [address] (XANAX) 1 618 08-03 BID PRF [facility] - MG tablet 00:00: 00:00 ANXIETY Medi jeevan 00 :00 [place] folic acid 2018- Yes TK [address] [facility] (FOLVITE) 1 6-13 QD [facility] - MG tablet 00:00: Medical 00 [place] spironolact 2018- Yes 100mg Q.5D Take [address] one 6-02 mg by [facility] - (ALDACTONE) 10:08: mouth 2 Med ical 100 MG 46 (two) Center tablet times daily. lactulose Yes TK [address] (CHRONULAC) 5-04 PO TID [facility] - 10 gram/15 00:00: Medical mL solution 00 [place] furosemide 2020- No TK [address] [facility] (LASIX) 40 4-22 01-07 QAM AND [facility] - MG tablet 00:00: 00:00 QPM Medical 00 :00 [place] triamcinolo 2020- No 1{appli Q.5D Apply [address] ne 3-10 08-03 cation} applicatio [facility] - (KENALOG) 00:00: 00:00 n Medical 0.1 % 00 :00 topically [place] topical 2 (two) cream times daily. metFORMIN [...] daily . Medi jeevan 40 MG 00 [place] tablet hydrOXYzine 2017-05 Yes 50mg Take [address] (ATARAX) 50 1-14 by mouth Luke s - MG tablet 00:00: as needed Med ical 00 . [place] traMADol Yes Recurrent 50mg Take 1 [facility] (ULTRAM) 50 7-19 umbilical tablet by Health mg tablet 00:00: hernia mouth 00 every 6 hours as needed for Pain. Immunizations Ordered Immunization Filled Immunization Date Status Commen ts Source Name Name Pneumococcal 2018-10-28 Completed [facility] Conjugate (Prevnar) 00:00:00 [facility] 13-Valent Vital Signs Vital Name Observation Time Observation Value Comments Source Systolic blood 2019-12-30 07:27:00 122 mm[Hg] [facility] Diastolic blood 2019-12-30 07:27:00 69 mm[Hg] [facility] Heart rate 2019-12-30 07:27:00 74 /min [facility] Body temperature 2019-12-30 07:27:[address] [facility] Respiratory rate 2019-12-30 07:27:00 18 /min [facility] Oxygen saturation in 2019-12-30 07:27:00 97 /min [facility] Arterial blood by Medical Ce nter Pulse oximetry Body height 2019-12-24 18:00:00 167.6 cm [facility] Body weight Measured 2019-12-24 18:00:[address] [facility] BMI 2019-12-24 18:00:00 36.65 kg/m2 [facility] Procedures Procedure Date / Time Performed Performing Clinician [facility] e REPORT OF PROCEDURE - 2019-12-31 15:30:02 Provider, Default [facility] ENDOSCOPY SCAN [facility] RHYTHM STRIP - SCAN 2019-12-30 17:20:55 Provider, Default [facility] POCT-GLUCOSE METER 2019-12-30 07:35:[address] [facility] HEPATIC FUNCTION PANEL 2019-12-30 04:33:00 Stuart Ware [facility] POCT-GLUCOSE METER 2019-12-29 22:05:[address] [facility] POCT-GLUCOSE METER 2019-12-29 17:12:[address] [facility] POCT-GLUCOSE METER 2019-12-29 13:21:00 Jennifer Florian [facility] UPPER ENDOSCOPY,BANDING 2019-12-29 12:30:[address] [facility] SIGMOIDOSCOPY 2019-12-29 12:30:[address] [facility] POCT-GLUCOSE METER 2019-12-29 11:57:[address] [facility] REPORT OF PROCEDURE - 2019-12-29 11:44:37 Tony Centeno [facility] REPORT OF PROCEDURE - 2019-12-29 11:29:55 Tony Centeno [facility] POCT-GLUCOSE METER 2019-12-29 07:50:[address] [facility] HEPATIC FUNCTION PANEL 2019-12-29 04:55[facility]/INR 2019-12-29 04:55[facility] (7) 2019-12-29 04:55:[address] [facility] CBC W/PLT COUNT & AUTO 2019-12-29 04:55:00 Jennifer Florian [facility] POCT-GLUCOSE METER 2019-12-28 22:01:[address] [facility] POCT-GLUCOSE METER 2019-12-28 09:20:00 Jennifer Florian [facility] HEPATIC FUNCTION PANEL 2019-12-28 05:21:00 Jennifer Florian [facility] BASIC METABOLIC PANEL (7) 2019-12-28 05:21:[address] [facility] CBC W/PLT COUNT & AUTO 2019-12-28 05:21:00 Jennifer Florian [facility] (CELLAVISION MANUAL DIFF) 2019-12-28 05:21:[address] [facility] POCT-GLUCOSE METER 2019-12-27 21:54:[address] [facility] POCT-GLUCOSE METER 2019-12-27 16:55:[address] [facility] CBC W/PLT COUNT & AUTO 2019-12-27 11:56:00 Jennifer Florian CH, I [facility] POCT-GLUCOSE METER 2019-12-27 11:42:[address] [facility] POCT-GLUCOSE METER 2019-12-27 07:48:[address] [facility] HEPATIC FUNCTION PANEL 2019-12-27 04:00:00 Jennifer Florian [facility] BASIC METABOLIC PANEL (7) 2019-12-27 04:00:[address] [facility] POCT-GLUCOSE METER 2019-12-26 21:36:[address] [facility] BLOOD CULTURE 2019-12-26 18:11:00 Jennifer Florian [facility] BLOOD CULTURE 2019-12-26 18:10:00 Jennifer Florian [facility] POCT-GLUCOSE METER 2019-12-26 17:36:[address] [facility] POCT-GLUCOSE METER 2019-12-26 12:13:[address] [facility] POCT-GLUCOSE METER 2019-12-26 07:38:[address] [facility] BASIC METABOLIC PANEL (7) 2019-12-26 04:24:[address] [facility] PROTHROMBIN TIME/INR 2019-12-26 04:24:[address] [facility] HEPATIC FUNCTION PANEL 2019-12-26 04:24:00 Jennifer Florian [facility] VITAMIN B12 AND FOLATE 2019-12-26 04:24:00 Sandro Gay [facility] CBC W/PLT COUNT & AUTO 2019-12-26 04:24:00 Jennifer Florian [facility] POCT-GLUCOSE METER 2019-12-25 21:59:[address] [facility] HEMOGLOBIN AND HEMATOCRIT 2019-12-25 15:56:[address] [facility] IRON, TIBC, % SAT. 2019-12-25 12:02:00 Victor Hugo [facility] (WITHOUT FERRITIN) [facility] F[facility] 2019-12-25 12:02:[address] [facility] COMPREHENSIVE METABOLIC 2019-12-25 04:55:00 Compa [facility] CBC W/PLT COUNT & AUTO 2019-12-25 04:55:00 Compa [facility] POCT-GLUCOSE METER 2019-12-24 23:27:[address] [facility] XR CHEST 1 VIEW 2019-12-24 18:17:00 Compa [facility] COMPREHENSIVE METABOLIC 2019-10-07 09:28:00 [facility] CBC W/PLT COUNT & AUTO 2019-10-07 09:28:00 Ankur Dan [facility] BILIRUBIN, DIRECT 2019-10-07 09:28:[address] [facility] ALPHA FETOPROTEIN (AFP), 2019-10-07 09:28:00 Ankur Dan [facility] TUMOR MARKER [facility] PROTHROMBIN TIME/INR 2019-10-07 09:28:[address] [facility] PLATELET ESTIMATION 2019-10-07 09:28:00 Ni [facility] ALPHA FETOPROTEIN (AFP), 2019-07-10 00:00:00 Nickie Yeh [facility] TUMOR MARKER [facility] [place] CBC W/PLT COUNT & AUTO 2019-07-10 00:00:[address] [facility] [facility] DIFFERENTIAL [facility] [place] PROTHROMBIN TIME/INR 2019-07-10 00:00:00 Ruba [facility] COMPREHENSIVE METABOLIC 2019-07-10 00:00:00 Ruba [facility] PANEL [facility] [place] PLATELET ESTIMATION 2019-07-10 00:00:00 Ruba [facility] REPORT OF PROCEDURE - 2019-06-05 13:52:03 Provider, [facility] ENDOSCOPY SCAN Scanning [facility] CARDIAC CATH REPORT - 2019-06-05 13:52:01 Provider, [facility] VASCULAR DIAGRAM -SCAN 2019-06-05 13:51:59 Provider, [facility] R & L CATH / CORONARY 2019-06-04 09:46:00 Jaspal An [facility] - ANGIOS / PCI [facility] STENT / CAROTID MCR - 2019-06-04 09:46:00 Jaspal An [facility] - IP PROC ONLY [facility] BASIC METABOLIC PANEL (7) 2019-06-04 08:38:[address] [facility] CBC W/PLT COUNT & AUTO 2019-06-04 08:38:00 Jaspal An [facility] MISCELLANEOUS LAB ORDER 2019-05-08 13:37:[address] [facility] BASIC METABOLIC PANEL (7) 2019-05-08 13:37:[address] [facility] HEPATIC FUNCTION PANEL 2019-05-08 13:37:00 Ankur Dan [facility] PROTHROMBIN TIME/INR 2019-05-08 13:37:[address] [facility] ALPHA FETOPROTEIN (AFP), 2019-05-08 13:37:00 Ankur Dan [facility] TUMOR MARKER Medical Center CBC W/PLT COUNT & AUTO 2019-05-08 13:37:[address] [facility] DIFFERENTIAL Medical Center Plan of Care Planned Activity Planned Date Details Comments Source Future Scheduled 2028-06-[address] [facility] - Test 00:00:00 malignant neoplasm of Medica l Center colon (procedure) [code = 914218204] Future Scheduled 2021-12-[address] [facility] - Test 00:00:00 (procedure) [code = Medical Center 55281187] Future Scheduled 2020-02-27 IMM Influenza Seasonal H [...] - Test 00:00:00 2-64 YEARS AT RISK (1 Medica l Center of 1 - PPSV23) [code = PNEUMOCOCCAL VACCINE 2-64 YEARS AT RISK (1 of 1 - PPSV23)] Future Scheduled 2006 [facility] Test 00:00:00 malignant neoplasm of colon (procedure) [code = 266460685] Encounters Start End Encounter Admission Attending Care Care Encounter Source Date/Time Date/Time Type Type Clinicians Facility Department ID 2019-09-11 2019-09-11 Telephone Harika [facility] [id number] 00:00:00 00:00:00 Ilan Modi [id number] Rizwan [id number] John [id number] [address] 2019-02-08 2019-02-08 Orders Doctor LICONA [id number] 00:00:00 00:00:00 Only Unassigned, TOY [id number] [place] [facility] [id number] [id number] [id number] 2019-01-31 2019-01-31 Orders Doctor MONAE [id number] 00:00:00 00:00:00 Only Unassigned, TOY [id number] [place] [facility] [id number] [id number] [id number] 2019-01-23 2019-01-23 Telephone Jase Rod [facility] [id number] 00:00:00 00:00:00 [place] [id number] [place] 4.2.7.2.686 Professio [id number] [address] 2019-01-21 2019-01-21 Office Jase Rod [facility] [id number] 15:52:08 16:26:09 Visit C Ly [id number] [place] 4.2.7.2.686 Professio [id number] [address] 2019-01-17 2019-01-17 Orders Doctor MONAE Lawson.[id number] 00:00:00 00:00:00 Only Unassigned, TOY [id number] [place] [facility] 4.2.7.2.686 [id number] [id number] 2019-01-02 2019-01-02 Orders Doctor LICONA [id number] 00:00:00 00:00:00 Only Unassigned, TOY [id number] [place] [facility] 4.2.7.2.686 [id number] [id number] 2018-12-28 2018-12-28 Orders Doctor MONAE [id number] 00:00:00 00:00:00 Only Unassigned, TOY [id number] [place] [facility] 4.2.7.2.686 [id number] [id number] 2016-10-19 2016-10-19 Orders Doctor MONAE [id number] 00:00:00 00:00:00 Only Unassigned, TOY [id number] [place] [facility] 4.2.7.2.686 [id number] [id number] Results Test Description Test Time Test Comments Results Result Comments Source Blood Culture - Routine (Right Venipuncture) 2019-12-31 20:0 0:00 Test Item Value Reference Range Interpretation Comme nts Result (test code = 6463-4) No [facility] [address] [facility] [id number] 20:00:00 Test Item Value Reference Range Interpretation Comments CULTURE (BEAKER) (test No growth in 5 days code = 1095) BLOOD [id number] 20:00:00 Test Item Value Reference Range Interpretation Comments CULTURE (BEAKER) (test No growth in 5 days code = 1095) POC-Glucose [id number] 07:47:00 Test Item Value Reference Range Interpretation Comments POC-Glucose Meter (test 121 mg/dL 70-110 H : TE STED AT [facility] code = 1538) [address] [facility], 770 30: Pumping Plant Operator/Techni zaire ID = [id number] for RADHA MURGUIA Lab Interpretation (test Abnormal code = 29064-7) [facility] [id number] 07:47:00 Test Item Value Reference Range Interpretation Comments POC-GLUCOSE METER 121 mg/dL 70-110 H : TESTED A T [facility] 6720 (BEAKER) (test code = ABELGA Juan J [facility], 1538) 89208: Pumping Plant Operator/Techni zaire ID = [id number] for ADINA PARTIDA RADHA Hepatic function [id number] 07:24:00 Test Item Value Reference Range Interpretation Comments Protein, Total (test code 5.8 6.0- 8.3 gm/dL L = 2885-2) Albumin (test code = 1.9 g/dL 3.5-5 L 36096-0) Total Bilirubin (test 2.6 mg/dL 0.2-1.2 H code = 1975-2) Bilirubin, Direct (test 1.6 mg/dL 0.1-0.5 H code = 1967-7) Alkaline Phosphatase 142 U/L 40-150 (test code = 6768-6) AST (test code = 1920-8) 57 U/L 5-34 H ALT (test code = 1742-6) 25 U/L 6-55 MADALYN (test code = MADALYN) Pumping Plant Operator ID - KRISHNA ZAVALETApecimekaz slightly icteric Lab Interpretation (test Abnormal code = 67490-9) [facility] [id number] 07:24:00 Test Item Value Reference Range Interpretation [...] (test code = 25 U/L 6-55 347) Pumping Plant Operator ID - ALEJANDRODAMIAN MEGHANNpecimekaz slightly ictericPOCT-GLUCOSE [id number] 22:18:00 Test Item Value Reference Range Interpretation Comments POC-GLUCOSE METER 143 mg/dL 70-110 H : TESTED A T [facility] 6720 (BEAKER) (test code = [facility], 1538) 53311: Pumping Plant Operator/Techni zaire ID = [id number] for CA RBAJAL, ANU POCT-GLUCOSE [id number] 17:24:00 Test Item Value Reference Range Interpretation Comments POC-GLUCOSE METER 214 mg/dL 70-110 H : TESTED A T [facility] 6720 (BEAKER) (test code = [facility], 1538) 02110: Pumping Plant Operator/Techni zaire ID = [id number] for SA NTOS, WADE POCT-GLUCOSE [id number] 13:32:00 Test Item Value Reference Range Interpretation Comments POC-GLUCOSE METER 127 mg/dL 70-110 H : TESTED A T [facility] 6720 (BEAKER) (test code = [facility], 1538) 17824: Pumping Plant Operator/Techni zaire ID = [id number] for SA NTOS, WADE POCT-GLUCOSE [id number] 12:08:00 Test Item Value Reference Range Interpretation Comments POC-GLUCOSE METER 124 mg/dL 70-110 H : TESTED A T [facility] 6720 (BEAKER) (test code = [place], 1538) 12518: Pumping Plant Operator/Techni zaire ID = [id number] for CHARI RAZO POCT-GLUCOSE [id number] 08:16:00 Test Item Value Reference Range Interpretation Comments POC-GLUCOSE METER 117 mg/dL 70-110 H : TESTED A T [facility] 6720 (BEAKER) (test code = NICOLE [place], 1538) [address]: Pumping Plant Operator/Techni zaire ID = [id number] for WADE MCMULLEN Basic Metabolic [id number] 06:13:00 Test Item Value Reference Range Interpretation Comments Sodium (test code = 129 meq/L 136-145 L 2951-2) Potassium (test code 4.0 meq/L 3.5-5.1 = 2823-3) Chloride (test code = 102 meq/L 98-107 2075-0) CO2 (test code = 24 meq/L - 2028-9) BUN (test code = 9 mg/dL - 3094-0) Creatinine (test code 0.68 mg/dL 0.57-1.25 = 2160-0) Glucose (test code = 123 mg/dL 70-105 H 2345-7) Calcium (test code = 7.2 mg/dL 8.4-10.2 L 20000-5) EGFR (test code = 118 mL/min/1.73 [place] [address]-1) NOT ACCURATE CREATININE CLEARANCE IN PREDICTING GLOMERULAR FILTRATION RATE . ESTIMATED GFR I S NOT APPLICABLE FOR DIALYSIS PATIENTS. MADALYN (test code = MADALYN) Pumping Plant Operator ID - KRISHNA Mcintyreimekaz slightly icteric Lab Interpretation Abnormal (test code = 39155-3) [facility] MET[facility]OLIC [id number] 06:13:00 Test Item Value Reference Range Interpretation Comments SODIUM (BEAKER) 129 meq/L 136-145 L (test code = 381) POTASSIUM (BEAKER) 4.0 meq/L 3.5-5.1 (test code = 379) CHLORIDE (BEAKER) 102 meq/L 98-107 (test code = 382) CO2 (BEAKER) (test 24 meq/L -29 code = 355) BLOOD UREA NITROGEN 9 [...] S NOT APPLICABLE FOR DIALYSIS PATIEN TS. Pumping Plant Operator ID - KRISHNA Isaac slightly ictericHEPATIC FUNCTION [id number] 06:13:00 Test Item Value Reference Range Interpretation [...] (test code = 27 U/L 6-55 347) Pumping Plant Operator ID Andrea Isaac slightly ictericProthrombin time/[id number] 05:46:00 Test Item Value Reference Range Interpretation [...] valves. Lab Interpretation Abnormal (test code = 13786-3) [facility]/[id number] 05:46:00 Test Item Value Reference Range Interpretation [...] heart valves.CBC with platelet count + automated [id number] 05:21:00 Test Item Value Reference Range Interpretation [...] K/CU MM L MPV (test code = 78199-5) 9.9 fL 9.4-12.4 nRBC (test code = [...] 2801) Lab Interpretation (test code = Abnormal 81455-0) [facility] [place] & AUTO [id number] 05:21:00 Test Item Value Reference Range Interpretation [...] PERCENT (BEAKER) (test code = 2801) POCT-GLUCOSE [id number] 22:38:00 Test Item Value Reference Range Interpretation Comments POC-GLUCOSE METER 181 mg/dL 70-110 H : TESTED A T [facility] 6720 (BEAKER) (test code = NICOLE Arita [facility], 1538) 06029: Pumping Plant Operator/Techni zaire ID = [id number] for RON BLANCO Manual Newawuhqlzhn1852-18-48 15:15:00 Test Item Value Reference Range Interpretation [...] Cells (test 1+ few code = 481) Doyline Cells (test code = 1+ few 474) Artifact (test code = Present 3432) Platelet Conc (test code Decreased = 3438) MADALYN (test code = MADALYN) Pumping Plant Operator ID - CarterOliva Christo comments: Slide comments: Lab Interpretation (test Abnormal code = 34890-3) [facility](CELLAVISION MANUAL DIFF)2019-12-28 15:15:00 Test Item Value Reference [...] CONCENTRATION Decreased (CELLAVISION)(BEAKER) (test code = 3438) Pumping Plant Operator ID - Nima Villafuerte comments: Slide comments:CBC W/PLT COUNT & AUTO [id number] 15:11:00 Test Item Value Reference Range Interpretation [...] PERCENT (BEAKER) (test code = 2801) POCT-GLUCOSE [id number] 10:15:00 Test Item Value Reference Range Interpretation Comments POC-GLUCOSE METER 178 mg/dL 70-110 H : TESTED Lana T [facility] 6720 (BEAKER) (test code = NICOLE ALAN [place], 1538) 32774: Pumping Plant Operator/Techni zaire ID = [id number] for ALESHA YELENASARA DELPHINE POCT-GLUCOSE [id number] 09:08:00 Test Item Value Reference Range Interpretation Comments POC-GLUCOSE METER 167 mg/dL 70-110 H : [facility] ([facility]ER[facility] (test code = NICOLE Arita [place], 1538) 71079: Pumping Plant Operator/Techni zaire ID = [id number] for WONG COWAN BASIC METABOLIC [id number] 07:06:00 Test Item Value Reference Range Interpretation [...] S NOT APPLICABLE FOR DIALYSIS PATIEN TS. Pumping Plant Operator ID - PIAYA LSpecimen slightly ictericHEPATIC FUNCTION [id number] 07:06:00 Test Item Value Reference Range Interpretation [...] (test code = 20 U/L 6-55 347) Pumping Plant Operator ID - PIAYA LSpecimen slightly ictericPOCT-GLUCOSE [id number] 22:05:00 Test Item Value Reference Range Interpretation Comments POC-GLUCOSE METER 216 mg/dL 70-110 H : TESTED A T [facility] 6720 (BEAKER) (test code = [facility], 1538) 69580: Pumping Plant Operator/Techni zaire ID = [id number] for DAVID TALBERT POCT-GLUCOSE [id number] 17:07:00 Test Item Value Reference Range Interpretation Comments POC-GLUCOSE METER 244 mg/dL 70-110 H : TESTED A T [facility] 6720 (BEAKER) (test code = [facility], 1538) 45512: Pumping Plant Operator/Techni zaire ID = [id number] for CHUCHO SADLIVAR CBC W/PLT COUNT & AUTO [id number] 12:15:00 Test Item Value Reference Range Interpretation [...] PERCENT (BEAKER) (test code = 2801) POCT-GLUCOSE [id number] 11:54:00 Test Item Value Reference Range Interpretation Comments POC-GLUCOSE METER 226 mg/dL 70-110 H : TESTED A T [facility] 6720 (BEAKER) (test code = [facility] [place] [place], 1538) 34046: Pumping Plant Operator/Techni zaire ID = [id number] for CHUCHO SALDIVAR BASIC METABOLIC [id number] 08:18:00 Test Item Value Reference Range Interpretation [...] S NOT APPLICABLE FOR DIALYSIS PATIEN TS. Pumping Plant Operator ID - NTPPOCT-GLUCOSE [id number] 08:07:00 Test Item Value Reference Range Interpretation Comments POC-GLUCOSE METER 166 mg/dL 70-110 H : TESTED A T [facility] 6720 (BEAKER) (test code = [facility], 153) 17837: Pumping Plant Operator/Techni zaire ID = [id number] for CHUCHO SALDIVAR HEPATIC FUNCTION [id number] 05:05:00 Test Item Value Reference Range Interpretation [...] (test code = 19 U/L 6-55 347) Pumping Plant Operator ID - EDASISpecimen slightly ictericPOCT-GLUCOSE [id number] 17:47:00 Test Item Value Reference Range Interpretation Comments POC-GLUCOSE METER 222 mg/dL 70-110 H : TESTED A T [facility] 6720 (BEAKER) (test code = [facility], 1538) 56785: Pumping Plant Operator/Techni zaire ID = [id number] for BRAXTON MORAN POCT-GLUCOSE [id number] 12:25:00 Test Item Value Reference Range Interpretation Comments POC-GLUCOSE METER 311 mg/dL 70-110 H : TESTED A T [facility] 6720 (BEAKER) (test code = [facility], 1538) 72079: Pumping Plant Operator/Techni zaire ID = [id number] for BRAXTON MORAN POCT-GLUCOSE [id number] 07:49:00 Test Item Value Reference Range Interpretation Comments POC-GLUCOSE METER 190 mg/dL 70-110 H : [facility] (BEAKER) (test code = [facility] [place] [place], 1538) 41150: Pumping Plant Operator/Techni zaire ID = [id number] for BRAXTON MORAN Vitamin B12 and [id number] 06:11:00 Test Item Value Reference Range Interpretation Comments Vitamin B12 (test code = 873 pg/mL 213-816 H 2132-9) Folate (test code = 12.30 ng/mL >=7.00 2284-8) MADALYN (test code = MADALYN) Pumping Plant Operator ID - EDASI Lab Interpretation (test Abnormal code = 42813-4) [facility] CenterVITAMIN B12 AND [id number] 06:11:00 Test Item Value Reference Range Interpretation Comments VITAMIN B12 (BEAKER) (test code = 873 pg/mL 213-816 H 774) FOLATE (BEAKER) (test code = 362) 12.30 ng/mL >=7.00 Pumping Plant Operator ID - EDASIBASIC METABOLIC [id number] 05:21:00 Test Item Value Reference Range Interpretation [...] S NOT APPLICABLE FOR DIALYSIS PATIEN TS. Pumping Plant Operator ID - EDASIHEPATIC FUNCTION [id number] 05:21:00 Test Item Value Reference Range Interpretation [...] (test code = 19 U/L 6-55 347) Pumping Plant Operator ID - EDASICBC W/PLT COUNT & AUTO [id number] 05:12:00 Test Item Value Reference Range Interpretation [...] PERCENT (BEAKER) (test code = 2801) PROTHROMBIN TIME/[id number] 04:56:00 Test Item Value Reference Range Interpretation [...] is2.5-3.5 for patients wiht mechanical heart valves.POCT-GLUCOSE [id number] 22:11:00 Test Item Value Reference Range Interpretation Comments POC-GLUCOSE METER 195 mg/dL 70-110 H : TESTED A T [facility] 6720 (BEAKER) (test code = NICO[facility] [place], 1538) 88790: Pumping Plant Operator/Techni zaire ID = [id number] for OM AGHOMI, WONG Hemoglobin and cfinhmgjrm2860-47-65 16:15:00 Test Item Value Reference Range Interpretation Comments Hemoglobin (test code = 8.6 13.7- 17.5 GM/DL L 786-4) Hematocrit (test code = 30.2 % 40.1-51 L 4544-3) MADALYN (test code = MADALYN) Pumping Plant Operator ID - [id number] Lab Interpretation (test Abnormal code = 51802-1) [facility] CenterHEMOGLOBIN AND [id number] 16:15:00 Test Item Value Reference Range Interpretation Comments HEMOGLOBIN (BEAKER) (test code = 8.6 GM/DL 13.7-17.5 L 410) HEMATOCRIT (BEAKER) (test code = 30.2 % 40.1-51.0 L 411) Pumping Plant Operator ID - [id number] 13:02:00 Test Item Value Reference Range Interpretation Comments Ferritin (test code = 73.10 ng/mL 5-275 2276-4) MADALYN (test code = MADALYN) Pumping Plant Operator ID - EDASI Lab Interpretation (test Normal code = 14127-6) [facility] CenterFERRITIN2020-07-29 13:02:00 Test Item Value Reference Range Interpretation Comments FERRITIN (BEAKER) (test code = 73.10 ng/mL 5.00-275.00 361) Pumping Plant Operator ID - EDASIIron, TIBC, % sat. (without ferritin)2019-12-25 12:42:00 Test Item Value Reference Range Interpretation Comments Iron (test code = 2498-4) 29.0 ug/dL 40-160 L TIBC (test code = 2500-7) 151 ug/dL 250-450 L Iron % Saturation (test 19 % 20-55 L code = 2502-3) MADALYN (test code = MADALYN) Pumping Plant Operator ID - EDASI Lab Interpretation (test Abnormal code = 24399-1) [facility] CenterIRON, TIBC, % SAT. (WITHOUT FERRITIN)2019-12-25 12:42:00 Test Item Value Reference Range Interpretation Comments IRON (BEAKER) (test code = 547) 29.0 ug/dL 40.0-160.0 L TOTAL IRON BINDING CAPACITY 151 ug/dL 250-450 L (BEAKER) (test code = 769) IRON % SATURATION (2) (BEAKER) 19 % 20-55 L (test code = 2590) Pumping Plant Operator ID - EDASIComprehensive metabolic [id number] 06:44:00 Test Item Value Reference Range Interpretation Comments Protein, Total (test 5.7 6.0- 8.3 gm/dL L code = 2885-2) Albumin (test code = 1.7 g/dL 3.5-5 L 65959-5) Alkaline Phosphatase 124 U/L 40-150 (test code = 6768-6) Total Bilirubin (test 2.0 mg/dL 0.2-1.2 H code = 1974-2) Sodium (test code = 134 meq/L 136-145 [...] (test code = 7.3 mg/dL 8.4-10.2 L 19715-9) AST (test code = 40 U/L 5-34 H 1920-8) ALT (test code = 20 U/L 6-55 1742-6) EGFR (test code = 107 mL/min/1.73 [place] [address]-0) NOT ACCURATE CREATININE CLEARANCE IN PREDICTING GLOMERULAR FILTRATION RATE . ESTIMATED GFR I S NOT APPLICABLE FOR DIALYSIS PATIENTS. MADALYN (test code = MADALYN) Pumping Plant Operator ID - EDASI Lab Interpretation Abnormal (test code = 24760-1) [facility] CenterCOMPREHENSIVE METABOLIC [id number] 06:44:00 Test Item Value Reference Range Interpretation [...] S NOT APPLICABLE FOR DIALYSIS PATIEN TS. Pumping Plant Operator ID - EDASICBC W/PLT COUNT & AUTO [id number] 05:55:00 Test Item Value Reference Range Interpretation [...] PERCENT (BEAKER) (test code = 2801) POCT-GLUCOSE [id number] 23:39:00 Test Item Value Reference Range Interpretation Comments POC-GLUCOSE METER 307 mg/dL 70-110 H : TESTED A T [facility] 6720 (BEAKER) (test code = NICOLE Arita [facility], 1538) 77302: Pumping Plant Operator/Techni zaire ID = [id number] for Erendira Talbert (contrac t) RAD, CHEST, 1 VIEW, NON [id number] 18:52:00REFERRING MD: CHERELLE SALVADOR Reason for exam:->sobShould [...] MDReport Verified Date/Time: 12/24/2019 18:52:34 Reading Location: [facility] C013W Consult Reading Room XR chest 1 view portable / hypqgji2457-07-61 18:52:00Interface, External Ris In - 12/24/2019 6:54 [...] [place] MDReport VerifiedDate/Time: 12/24/2019 18:52:34 Reading Location: [facility] B1 C013W Consult Reading [facility] [id number] 10:17:00 Test Item Value Reference Range Interpretation Comments Bilirubin, Total (test 2.4 mg/dL 0.2-1.2 H code = 0275202) Bilirubin, Direct (test 0.7 mg/dL < OR = 0.2 H code = 9024440) Bilirubin, Indirect 1.7 0.2- 1.2 mg/dL H (test code = 7854259) (calc) MADALYN (test code = MADALYN) FASTING:YESFASTING: YES RAC (test code = RAC) Performing Organization Information: Site ID: ABEL Name: [facility] Address: [address] [place] [id number] Director: Terrell Romeo Lab Interpretation Abnormal (test code = 73498-9) [facility] [place] + automated ofez4789-69-88 10:17:00 Test Item Value Reference Range Interpretation [...] MPV (test code = 10.7 fL 7.5-12.5 4929131) # Neutros (test code = 3010 1,500 - 7,643 2743123) cells/uL # Lymphs (test code = 1937 [...] Performing Organization Information: Site ID: ABEL Name: [facility] Address: [address] [place] [id number] Director: Terrell Romeo Lab Interpretation Abnormal (test code = 05214-6) [facility] CenterAlpha fetoprotein (AFP), tumor ihnyvz2666-96-94 10:17:00 Test Item Value Reference Interpretation Comments [...] Organization RAC) Information: Site ID: IG Name: [facility] Lab Address: [address] [place] [address] Director: Dr. Terrell Romeo [facility] CenterPLATELET [id number] 10:17:00 Test Item Value Reference Range Interpretation Comments Platelet Estimate (test DECREASED ADEQUATE A code = 80930-5) MADALYN (test code = MADALYN) FASTING:YESFASTING: YES RAC (test code = RAC) Performing Organization Information: Site ID: ABEL Name: [facility] Address: [address] [place] [id number] Director: Terrell Romeo Lab Interpretation (test Abnormal code = 66267-4) [facility] CenterBASIC METABOLIC [id number] 09:29:00 Test Item Value Reference Range Interpretation [...] Specimen slightly ictericCBC W/PLT COUNT & AUTO [id number] 08:54:00 Test Item Value Reference Range Interpretation [...] (BEAKER) (test code = 2801) Miscellaneous lab [id number] 07:03:00Scan ResultQUEST NON-INTERFACED LABCHI [facility] HospitalHEPATITIS C [id number] 12:25:00 Test Item Value Reference Range Interpretation Comments HEPATITIS C ANTIBODY (BEAKER) (test Reactive Nonreactive A code = 367) ALPHA FETOPROTEIN (AFP), TUMOR [id number] 15:45:00 Test Item Value Reference Range Interpretation Comments ALPHA-FETOPROTEIN (BEAKER) (test 2.7 ng/mL <10.0 code = 1094) BASIC METABOLIC [id number] 15:36:00 Test Item Value Reference Range Interpretation [...] DIALYSIS PATIEN TS. Specimen slightly ictericHEPATIC FUNCTION [id number] 15:35:00 Test Item Value Reference Range Interpretation [...] 21 U/L 6-55 347) Specimen slightly ictericPROTHROMBIN TIME/[id number] 15:00:00 Test Item Value Reference Range Interpretation [...] mechanical heart valves.CBC W/PLT COUNT & AUTO [id number] 14:53:00 Test Item Value Reference Range Interpretation [...] code = 2801) ALPHA FETOPROTEIN (AFP), TUMOR [id number] 14:10:00 Test Item Value Reference Range Interpretation Comments ALPHA-FETOPROTEIN (BEAKER) (test 2.7 ng/mL <10.0 code = 1094) BASIC METABOLIC [id number] 13:52:00 Test Item Value Reference Range Interpretation [...] DIALYSIS PATIEN TS. Specimen slightly ictericHEPATIC FUNCTION [id number] 13:52:00 Test Item Value Reference Range Interpretation [...] 24 U/L 6-55 347) Specimen slightly ictericPROTHROMBIN TIME/[id number] 13:49:00 Test Item Value Reference Range Interpretation [...] mechanical heart valves.CBC W/PLT COUNT & AUTO [id number] 13:35:00 Test Item Value Reference Range Interpretation [...] 0-1 PERCENT (BEAKER) (test code = 2801) [id number] 14:59:00 Test Item Value Reference Range Interpretation Comments T4 TOTAL (BEAKER) (test code = 895) 5.7 ug/dL 4.9-11.7 [id number] 13:20:00 Test Item Value Reference Range Interpretation Comments T3 TOTAL (BEAKER) (test code = 656) 113 ng/dL 48-159 CYTOMEGALOVIRUS ANTIBODY, [id number] 11:11:00 Test Item Value Reference Range Interpretation Comments CYTOMEGALOVIRUS, IGG (BEAKER) Positive Negative, Equivocal A (test code = 3429) CMV IgG Result Interpretation: </= 0.8 Al Negative 0.9-1.0 Al Equivocal >/=1.1 Al PositiveCYTOMEGALOVIRUS ANTIBODY, [id number] 11:11:00 Test Item Value Reference Range Interpretation Comments CYTOMEGALOVIRUS IGM ANTIBODY Negative Negative, Equivocal (BEAKER) (test code = 3437) CMV IgM Result Interpretation: </= 0.8 Al Negative 0.9-1.0 Al Equivocal >/= 1.1 Al PositiveEBV ANTIBODY, [id number] 11:08:00 Test Item Value Reference Range Interpretation [...] Equivocal >/= 1.1 Al PositiveVARICELLA ZOSTER ANTIBODY, [id number] 11:08:00 Test Item Value Reference Range Interpretation Comments VARICELLA ZOSTER IGG (AL) (BEAKER) > (test code = 3197) VARICELLA ZOSTER RESULT INTERPRETATIONS: <=0.8 Al Nonreactive: Presumed non-immune to VZV 0.9-1.0 Al Equivocal >=1.1 Al Reactive: Presumed immune to JYGYLPAY-2-[id number] 13:11:00 Test Item Value Reference Range Interpretation Comments ALPHA-1 ANTITRYPSIN (BEAKER) 155.30 mg/dL 90.00-200.00 (test code = 502) HEMOGLOBIN [id number] 13:08:00 Test Item Value Reference Range Interpretation Comments HEMOGLOBIN A1C (BEAKER) (test code = 6.4 % 4.3-6.1 H 368) HEPATITIS A ANTIBODY, [id number] 12:51:00 Test Item Value Reference Range Interpretation Comments HEPATITIS A IGG ANTIBODY (BEAKER) Reactive Nonreactive A (test code = 2797) HEPATITIS C [id number] 12:51:00 Test Item Value Reference Range Interpretation Comments HEPATITIS C ANTIBODY (BEAKER) (test Reactive Nonreactive A code = 367) [id number] 12:48:00 Test Item Value Reference Range Interpretation Comments PROSTATE SPECIFIC ANTIGEN (BEAKER) 0.4 ng/mL 0.0-4.0 (test code = 844) HIV-1 ANTIGEN WITH HIV-1/2 [id number] 12:48:00 Test Item Value Reference Range Interpretation Comments HIV-1 ANTIGEN WITH HIV 1\T\2 Nonreactive Nonreactive ANTIBODY (2) (BEAKER) (test code = 2586) VITAMIN D, 76-[id number] 12:46:00 Test Item Value Reference Range Interpretation Comments VITAMIN D 25-OH (BEAKER) (test code 7.7 ng/mL 6.6-49.9 = 2764) Effective 03/08/2017: Reference Range ChangeNew: 6.6-49.9 ng/mL Previous: 13.0-47.8 ng/mLRecommended Vitamin D Target Range: 30.0-40.0 ng/mLURINALYSIS W/ [id number] 11:55:00 Test Item Value Reference Range Interpretation [...] 2 /LPF SOURCE(BEAKER) (test code = 2795) CRYPTOCOCCAL [id number] 11:10:00 Test Item Value Reference Range Interpretation Comments CRYPTOCOCCAL ANTIGEN, SERUM Negative Negative, Interference (BEAKER) (test code = 1828) [id number] 10:59:00 Test Item Value Reference Range Interpretation Comments THYROID STIMULATING HORMONE 2.10 uIU/mL 0.35-4.94 (BEAKER) (test code = 772) [id number] 10:59:00 Test Item Value Reference Range Interpretation Comments FERRITIN (BEAKER) (test code = 361) 69 ng/mL 5-275 [id number] 10:51:00 Test Item Value Reference Range Interpretation Comments RPR SCREEN (BEAKER) (test code = Nonreactive Nonreactive 420) [id number] 10:49:00 Test Item Value Reference Range Interpretation Comments TRANSFERRIN (BEAKER) (test code = 197 mg/dL 174-382 541) Specimen slightly [id number] 10:45:00 Test Item Value Reference Range Interpretation Comments MAGNESIUM (BEAKER) (test code = 1.5 mg/dL 1.6-2.6 L 627) [id number] 10:45:00 Test Item Value Reference Range Interpretation Comments PHOSPHORUS (BEAKER) (test code = 3.6 mg/dL 2.3-4.7 604) URIC [id number] 10:45:00 Test Item Value Reference Range Interpretation Comments URIC ACID (BEAKER) (test code = 4.8 mg/dL 2.6-7.2 773) Specimen slightly ictericCOMPREHENSIVE METABOLIC [id number] 10:45:00 Test Item Value Reference Range Interpretation [...] FOR DIALYSIS PATIEN TS. Specimen slightly ictericLIPID [id number] 10:45:00 Test Item Value Reference Range Interpretation [...] 160-189 Very High >=190 Specimen slightly ictericBILIRUBIN, [id number] 10:45:00 Test Item Value Reference Range Interpretation Comments BILIRUBIN DIRECT (BEAKER) (test 1.6 mg/dL 0.1-0.5 H code = 706) GAMMA GLUTAMYL TRANSFERASE (GGT)2018-12-20 10:45:00 Test Item Value Reference Range Interpretation Comments GAMMA GLUTAMYL TRANSFERASE (BEAKER) 33 U/L 9-64 (test code = 364) Specimen slightly [id number] 10:42:00 Test Item Value Reference Range Interpretation Comments PARTIAL THROMBOPLASTIN TIME 37.9 seconds 22.5-36.0 H (BEAKER) (test code = 760) PROTHROMBIN TIME/[id number] 10:36:00 Test Item Value Reference Range Interpretation [...] INR is2.5-3.5 for patients wiht mechanical heart valves.[id number] 10:36:00 Test Item Value Reference Range Interpretation Comments ETHANOL (BEAKER) (test code = 400) < mg/dL <=10 [id number] 10:36:00 Test Item Value Reference Range Interpretation Comments FIBRINOGEN LEVEL (BEAKER) (test 207 mg/dl 225-434 L code = 658) BLOOD GAS, [id number] 10:35:00 Test Item Value Reference Range Interpretation [...] 21.0 % CBC W/PLT COUNT & AUTO [id number] 10:25:00 Test Item Value Reference Range Interpretation [...] PERCENT (BEAKER) (test code = 2801) CALCIUM, [id number] 10:20:00 Test Item Value Reference Range Interpretation Comments CALCIUM IONIZED (BEAKER) (test 1.05 mmol/L 1.12-1.27 L code = 698) PH, BLOOD (BEAKER) (test code = 7.41 1810) RAD, MANDIBLE, MIN 4 [id number] 16:56:00REFERRING MD: CHERELLE SALVADOR Reason for Exam:->pretransplant liver evaluationFINAL REPORT TECHNIQUE: Minimum four views of the mandible. INDICATION: pretransplant liver evaluation. COMPARISON: None. FINDINGS:No fracture or dislocation.No periapical lucencies.Caries of a maxillary molar, side indeterminate.Mild degenerative disc changes at C4-C5, C5-C6, and C6-C7. IMPRESSION: No periapical lucency. Caries of a maxillary molar, side indeterminate. Signed:Tawanda Hernandez MDReport Verified Date/Time: 12/19/2018 16:56:31 Reading Location: [address] Radiology Reading Room RAD, CHEST, 2 [id number] 15:51:00REFERRING MD: CHERELLE SALVADOR Reason for Exam:->pretransplant liver evaluationFINAL REPORT Chest, PA and lateral. History: Transplant evaluation. Comparison: 10/28/2018. Discussion: The cardiomediastinal silhouette and pulmonary vasculature are within normal limits. The lungs are clear without evidence of consolidation or effusion. There are no acute osseous abnormalities. The soft tissues are unremarkable. IMPRESSION: No acute cardiopulmonary abnormality. Signed: Farzaneh Hathaway MDReport Verified Date/Time: 12/19/2018 15:51:17 Reading Location: [facility] Mammo Reading Room MR, ABDOMEN, [id number] 14:51:00 REFERRING MD: CHERELLE VEGAINAL REPORT TECHNIQUE: [...] MDReport Verified Date/Time: 12/19/2018 14:51:24 Reading Location: [address] Radiology Reading Room ETHANOL 2018-12-06 11:12:00 Test Item Value Reference Range Interpretation Comments ETHANOL (BEAKER) (test code = 400) < mg/dL <=10 BASIC METABOLIC [id number] 10:56:00 Test Item Value Reference Range Interpretation [...] DIALYSIS PATIEN TS. Specimen moderately ictericHEPATIC FUNCTION [id number] 10:56:00 Test Item Value Reference Range Interpretation [...] 27 U/L 6-55 347) Specimen moderately ictericPROTHROMBIN TIME/[id number] 10:40:00 Test Item Value Reference Range Interpretation [...] mechanical heart valves.CBC W/PLT COUNT & AUTO [id number] 10:38:00 Test Item Value Reference Range Interpretation [...] PERCENT (BEAKER) (test code = 2801) BLOOD [id number] 08:00:00 Test Item Value Reference Range Interpretation Comments CULTURE (BEAKER) (test No growth in 5 days code = 1095) BLOOD [id number] 08:00:00 Test Item Value Reference Range Interpretation Comments CULTURE (BEAKER) (test No growth in 5 days code = 1095) BODY FLUID CULTURE + GRAM [id number] 12:20:00 Test Item Value Reference Range Interpretation Comments CULTURE (BEAKER) (test code No growth = 1095) GRAM STAIN RESULT (BEAKER) 1+ WBCs (test code = 1123) GRAM STAIN RESULT (BEAKER) No organisms seen (test code = 40220) HEPATITIS C PCR, [id number] 08:32:00 Test Item Value Reference Range Interpretation Comments HCV RESULT COMPONENT HCV RNA not detected HCV RNA not detected (AKER) (test code = 2699) This test uses a Real-Time Polymerase Chain Reaction (RT-PCR) methodology and was performed using [employer] Ampliprep/KHOA TaqMan HCV test kit version 2.0 ([employer]).Reportable range for this assay is 15 - 100,000,000 IU per mL (1.18 - 8.00 Log IU/mL).POCT-GLUCOSE [id number] 08:09:00 Test Item Value Reference Range Interpretation Comments POC-GLUCOSE METER 117 mg/dL 70-[address] [facility] 6720 ([facility]) (test code = NICOLE Arita [place]AN [place] 1538) [address] CALCIUM, [id number] 05:54:00 Test Item Value Reference Range Interpretation Comments CALCIUM IONIZED (BEAKER) (test 1.01 mmol/L 1.12-1.27 L code = 698) PH, BLOOD (BEAKER) (test code = 7.45 1810) COMPREHENSIVE METABOLIC [id number] 05:07:00 Test Item Value Reference Range Interpretation [...] APPLICABLE FOR DIALYSIS PATIEN TS. Specimen slightly [id number] 05:06:00 Test Item Value Reference Range Interpretation Comments PHOSPHORUS (BEAKER) (test code = 3.3 mg/dL 2.3-4.7 604) [id number] 05:06:00 Test Item Value Reference Range Interpretation Comments MAGNESIUM (BEAKER) (test code = 1.5 mg/dL 1.6-2.6 L 627) CBC W/PLT COUNT & AUTO [id number] 04:43:00 Test Item Value Reference Range Interpretation [...] PERCENT (BEAKER) (test code = 2801) POCT-GLUCOSE [id number] 21:35:00 Test Item Value Reference Range Interpretation Comments POC-GLUCOSE METER 154 mg/dL 70-110 H TESTED AT [place] [address] [facility] (test code = NICOLE Arita [facility] 1538) [address] POCT-GLUCOSE [id number] 17:21:00 Test Item Value Reference Range Interpretation Comments POC-GLUCOSE METER 138 mg/dL 70-110 H TESTED AT [place] [address] ([facility]) (test code = NICOLE Arita [facility] 1538) [address] POCT-GLUCOSE [id number] 13:27:00 Test Item Value Reference Range Interpretation Comments POC-GLUCOSE METER 166 mg/dL 70-110 H TESTED AT [place] [address] ([facility]) (test code = NICOLE [place] 1538) [address] CBC W/PLT COUNT & AUTO [id number] 12:00:00 Test Item Value Reference Range Interpretation [...] 3438) Received comment: User comments: Slide comments:POCT-GLUCOSE [id number] 11:52:00 Test Item Value Reference Range Interpretation Comments POC-GLUCOSE METER 180 mg/dL 70-110 H TESTED AT [place] [address] (BEAKER) (test code = NICOLE Arita [facility] 1538) [address] POCT-GLUCOSE [id number] 08:09:00 Test Item Value Reference Range Interpretation Comments POC-GLUCOSE METER 115 mg/dL 70-110 H TESTED AT [place] [address] (BEAKER) (test code = NICOLE Arita [facility] 1538) [address] COMPREHENSIVE METABOLIC [id number] 05:59:00 Test Item Value Reference Range Interpretation [...] APPLICABLE FOR DIALYSIS PATIEN TS. Specimen slightly [id number] 05:57:00 Test Item Value Reference Range Interpretation Comments MAGNESIUM (BEAKER) (test code = 1.6 mg/dL 1.6-2.6 627) POCT-GLUCOSE [id number] 22:30:00 Test Item Value Reference Range Interpretation Comments POC-GLUCOSE METER 186 mg/dL 70-110 H TESTED AT [place] [address] ([facility]) (test code = NICOLE Arita [facility] 1538) [address] POCT-GLUCOSE [id number] 18:33:00 Test Item Value Reference Range Interpretation Comments POC-GLUCOSE METER 117 mg/dL 70-110 H TESTED AT [place] [address] ([facility]) (test code = NICOLE Juan J [facility] 1538) [address] U/S, [id number] 17:34:00REFERRING : CHERELLE SALVADOR Please give 25g [...] 2% lidocaine anesthesia was administered. A 5 Japanese catheter was advanced into the peritoneal cavity and 1300 cc of addison fluid was removed. The catheter was removed without immediate complication. Samples left with interstitial sent to the lab for analysis. IMPRESSION:Uncomplicated ultrasound-guided paracentesis with 1300 cc fluid removed. Signed: Mauricio Cullen MDReport Verified Date/Time: 10/29/2018 17:34:00 Reading Location: [address] Ultrasound Reading Room VANCOMYCIN LEVEL, TROUGH 2018-10-29 17:22:00 Test Item Value Reference Range Interpretation Comments VANCOMYCIN TROUGH (BEAKER) (test 7.3 ug/mL 10.0-20.0 L code = 522) CBC W/PLT COUNT & AUTO [id number] 15:00:00 Test Item Value Reference Range Interpretation [...] = 2801) BODY FLUID CELL COUNT WITH [id number] 13:45:00 Test Item Value Reference Range Interpretation [...] Tube (test code = 2873) RESPIRATORY PANEL [id number] 12:27:00 Test Item Value Reference Range Interpretation [...] [facility] Molecular Diagnostics Laboratory using the [employer] Respiratory Panel. It is FDA cleared and has been verified and approved by the [facility] Molecular Diagnostics Laboratory for clinical use on nasopharyngeal swab specimens.The performance of the FilmArrayRP has not been established in individuals who received influenza vaccine. Recent administration ofa nasal influenza vaccine may cause false positive results for Influenza A and/orInfluenza B.POCT-GLUCOSE [id number] 12:16:00 Test Item Value Reference Range Interpretation Comments POC-GLUCOSE METER 196 mg/dL 70-[address] [facility] 6720 (BEAKER) (test code = NICOLE [place]rita [place] 1538) [address] RESPIRATORY PANEL [id number] 10:59:00 Test Item Value Reference Range Interpretation [...] Equivocal BORDETELLA PERTUSSIS Not detected Not detected, ([facility]) (test code = 3205) Equivocal CHLAMYDOPHILA PNEUMONIAE Not detected Not detected, (AKER) (test code = 3206) Equivocal MYCOPLASMA PNEUMONIAE Not detected Not detected, (AKER) (test code = 3207) Equivocal Other viruses [...] MEDICAL CENTER Molecular Diagnostics Laboratory using the [employer] PharmaceuticalsArray Respiratory Panel. It is FDA cleared and has been verified and approved by the [facility] Molecular Diagnostics Laboratory for clinical use on nasopharyngeal swab specimens.The performance of the FilmArrayRP has not been established in individuals who received influenza vaccine. Recent administration ofa nasal influenza vaccine may cause false positive results for Influenza A and/orInfluenza B.POCT-GLUCOSE [id number] 08:15:00 Test Item Value Reference Range Interpretation Comments POC-GLUCOSE METER 184 mg/dL 70-[address] [facility] 6720 ([facility]) (test code = NICOLE Arita [facility] 1538) [address] CBC W/PLT COUNT & AUTO [id number] 07:49:00 Test Item Value Reference Range Interpretation Comments WHITE BLOOD CELL COUNT ([facility]) 7.2 K/ L 3.5-10.5 (test code = 775) RED BLOOD CELL COUNT ([facility]) 2.66 M/ L 4.63-6.08 L (test code = 761) HEMOGLOBIN (BEAKER) (test code = 8.9 GM/DL 13.7-17.5 L 410) HEMATOCRIT (AKER) (test code = 27.2 % 40.1-51.0 L 411) MEAN CORPUSCULAR VOLUME ([facility]) 102.3 fL 79.0-92.2 H (test code = 753) MEAN CORPUSCULAR HEMOGLOBIN 33.5 pg 25.7-32.2 H (AKER) (test code = 751) MEAN CORPUSCULAR HEMOGLOBIN CONC 32.7 GM/DL 32.3-36.5 ([facility]) (test code = 752) RED CELL DISTRIBUTION [...] APPLICABLE FOR DIALYSIS PATIEN TS. Specimen moderately [id number] 04:31:00 Test Item Value Reference Range Interpretation Comments MAGNESIUM (BEAKER) (test code = 1.9 mg/dL 1.6-2.6 627) LACTIC ACID, [id number] 04:18:00 Test Item Value Reference Range Interpretation Comments LACTATE BLOOD VENOUS (2) (BEAKER) 1.3 mmol/L 0.5-2.2 (test code = 2872) Specimen moderately ictericPOCT-GLUCOSE [id number] 18:00:00 Test Item Value Reference Range Interpretation Comments POC-GLUCOSE METER 121 mg/dL 70-[address] [facility] 6720 (BEAKER) (test code = NICOLE [place]rita [place] 1538) [address] [id number] 12:39:00 Test Item Value Reference Range Interpretation Comments PROCALCITONIN ([place]) (test code 4.50 ng/mL <0.05 H = 3036) SEPSIS RISK (ng/mL)Low: 0.05-0.50Intermediate: 0.51-2.00High: >=2.01POCT-GLUCOSE [id number] 12:20:00 Test Item Value Reference Range Interpretation Comments POC-GLUCOSE METER 148 mg/dL 70-[address] [facility] 6720 ([place]) (test code = NICOLE Arita [facility] 1538) [address] LEGIONELLA ANTIGEN, [id number] 12:13:00 Test Item Value Reference Range Interpretation Comments L. PNEUMOPHILA Negative - see Negative fo r L. SEROGP 1 UR AG comment pneumophila ([place]) (test code serogrou p 1 antigen, = 1156) suggesting no r ecent or current infe ction with this serog roup. Legionellosis c annot be ruled out si nce other serogroup s and species may cau se disease. STREP PNEUMONIAE [id number] 12:13:00 Test Item Value Reference Range Interpretation Comments STREP PNEUMONIAE Presumptive negative Presumptive negative ANTIGEN (BRITTANYAKER) for pneumococcal for pneumococcal (test code = 1615) pneumonia - see pneumonia - see comment commen Presumptive negative for pneumococcal pneumonia, suggesting no current or recent pneumococcal infection. Infection due to S. pneumoniae cannot be ruled out since the antigen present in the sample may be below the detection limit of the test. RAPID INFLUENZA A&B [id number] 12:11:00 Test Item Value Reference Range Interpretation Comments RAPID INFLUENZA A AG (BEAKER) Negative Negative, Inconclusive (test code = 1622) RAPID INFLUENZA B AG (BEAKER) Negative Negative, Inconclusive (test code = 1623) LACTIC ACID, [id number] 10:51:00 Test Item Value Reference Range Interpretation Comments LACTATE BLOOD VENOUS (2) (BEAKER) 3.0 mmol/L 0.5-2.2 H (test code = 2872) Specimen moderately ictericU/S, ABDOMINAL, [id number] 07:19:00REFERRING : CHERELLE SALVADOR Please perform with [...] MDReport Verified Date/Time: 10/28/2018 07:19:25 Reading Location: [address] Reading Room RAPID DRUG SCREEN, [id number] 07:07:00 Test Item Value Reference Range Interpretation [...] situations. Chain of custody not maintained. Some frsl-cac-gzdpdbd medications, as well as adulterants, may cause inaccurate results. Clinical correlation should be applied. A more comprehensive drug screen or confirmation of a detected drug may be performed upon request.CT, BRAIN, WITHOUT [id number] 06:42:00REFERRING MD: CHERELLE FRANCISCO REPORT CT, BRAIN, [...] Verified Date/Time: 10/28/2018 06:42:47 VITAMIN B12 AND [id number] 06:21:00 Test Item Value Reference Range Interpretation Comments VITAMIN B12 (BEAKER) (test code = 719 pg/mL 213-816 774) FOLATE (BEAKER) (test code = 362) 13.7 ng/mL >=7.0 TROPONIN [id number] 06:05:00 Test Item Value Reference Range Interpretation [...] H (test code = 2590) COMPREHENSIVE METABOLIC [id number] 05:44:00 Test Item Value Reference Range Interpretation [...] APPLICABLE FOR DIALYSIS PATIEN TS. Specimen moderately [id number] 05:38:00 Test Item Value Reference Range Interpretation Comments MAGNESIUM (BEAKER) (test code = 2.3 mg/dL 1.6-2.6 627) LACTIC ACID, [id number] 05:32:00 Test Item Value Reference Range Interpretation Comments LACTATE BLOOD VENOUS 4.1 mmol/L 0.5-2.2 H Specime n slightly (2) (BEAKER) (test hemolyzed code = 1234) Specimen moderately ictericTROPONIN [id number] 02:28:00 Test Item Value Reference Range Interpretation [...] disease, and persistent tachyarrhythmia.RAD, ABDOMEN/KUB, 1 VIEW [id number] 02:04:00REFERRING MD: CHERELLE SALVADOR Reason for exam:->NG [...] Day MDReport Verified Date/Time: 10/28/2018 02:04:20 HROMBIN [id number] 01:58:00 Test Item Value Reference Range Interpretation [...] mechanical heart valves.CBC W/PLT COUNT & AUTO [id number] 01:45:00 Test Item Value Reference Range Interpretation [...] PLATELET CONCENTRATION Decreased (CELLAVISION)(BEAKER) (test code = 8308) Received comment: User comments: Slide comments:URINALYSIS W/ REFLEX URINE [id number] 01:36:00 Test Item Value Reference Range Interpretation [...] SOURCE(BEAKER) (test code = 2795) COMPREHENSIVE METABOLIC [id number] 01:16:00 Test Item Value Reference Range Interpretation [...] APPLICABLE FOR DIALYSIS PATIEN TS. Specimen moderately [id number] 01:15:00 Test Item Value Reference Range Interpretation Comments AMMONIA (BEAKER) (test code = 348) 69 mol/L 18-72 LACTIC ACID, [id number] 01:08:00 Test Item Value Reference Range Interpretation Comments LACTATE BLOOD VENOUS (2) (BEAKER) 3.2 mmol/L 0.5-2.2 H (test code = 2872) Specimen moderately [id number] 01:08:00 Test Item Value Reference Range Interpretation Comments MAGNESIUM (BEAKER) (test code = 1.1 mg/dL 1.6-2.6 L 627) RAD, CHEST, 1 VIEW, NON [id number] 00:52:00REFERRING MD: CHERELLE SALVADOR Reason for exam:->sepsisShould [...] MDReport Verified Date/Time: 10/28/2018 00:52:42 Reading Location: [address] Reading Room ACTIN (SMOOTH MUSCLE) ANTIBODY, [id number] 08:28:00 Test Item Value Reference Range Interpretation Comments SCAN RESULT (test code = 3319331) [id number] 08:27:00 Test Item Value Reference Range Interpretation Comments SCAN RESULT (test code = 8341921) NILS TITER AND [id number] 09:55:00 Test Item Value Reference Range Interpretation Comments NILS TITER (BEAKER) (test code = :160 1541) NILS PATTERN (BEAKER) (test code = Speckled 1781) ANTI-NUCLEAR ANTIBODY (NILS)2018-10-05 09:54:00 Test Item Value Reference Range Interpretation Comments ANTI-NUCLEAR ANTIBODY (NILS) (BEAKER) Positive Negative A (test code = 418) Test performed by IFA method.[id number] 10:54:00 Test Item Value Reference Range Interpretation Comments FERRITIN (BEAKER) (test code = 361) 218 ng/mL 5-275 HEPATITIS A ANTIBODY, [id number] 10:18:00 Test Item Value Reference Range Interpretation Comments HEPATITIS A IGG ANTIBODY (BEAKER) Reactive Nonreactive A (test code = 2797) ALPHA FETOPROTEIN (AFP), TUMOR [id number] 10:14:00 Test Item Value Reference Range Interpretation Comments ALPHA-FETOPROTEIN (BEAKER) (test 3.5 ng/mL <10.0 code = 1094) HEPATITIS A ANTIBODY, [id number] 10:14:00 Test Item Value Reference Range Interpretation Comments HEPATITIS A IGM ANTIBODY (BEAKER) Nonreactive Nonreactive (test code = 498) HEPATITIS B CORE ANTIBODY, [id number] 10:14:00 Test Item Value Reference Range Interpretation Comments HEPATITIS B CORE TOTAL ANTIBODY Nonreactive Nonreactive (BEAKER) (test code = 497) HEPATITIS B SURFACE [id number] 09:42:00 Test Item Value Reference Range Interpretation Comments HEPATITIS B SURFACE ANTIBODY < mIU/mL <8.0 (BEAKER) (test code = 647) HEPATITIS B SURFACE [id number] 09:36:00 Test Item Value Reference Range Interpretation [...] 41 % 20-55 (test code = 2590) [id number]-5-[id number] 09:14:00 Test Item Value Reference Range Interpretation Comments ALPHA-1 ANTITRYPSIN (BEAKER) 159.30 mg/dL 90.00-200.00 (test code = 502) COMPREHENSIVE METABOLIC [id number] 09:10:00 Test Item Value Reference Range Interpretation [...] FOR DIALYSIS PATIEN TS. Specimen slightly ictericBILIRUBIN, [id number] 09:10:00 Test Item Value Reference Range Interpretation Comments BILIRUBIN DIRECT (BEAKER) (test 1.4 mg/dL 0.1-0.5 H code = 706) PROTHROMBIN [id number] 08:38:00 Test Item Value Reference Range Interpretation [...] % 0-1 PERCENT (BEAKER) (test code = 4841)
== END 2020-03-04 16:20 | disposition home or self-care (01) ==
LOC: ER 11:38
DX: E11.65 Type 2 diabetes mellitus with hyperglycemia (principal); I10 Essential (primary) hypertension
CPT/HCPCS: 96361; 93005; 85025; 80048; 36415; 82947 ×6; 70450; 96372; 96374; 99284; J7040

== ENCOUNTER 2020-06-24 07:05 | Day surgery (SDC) | payer OTHER ==
--- OUTSIDE RECORDS SUMMARY | 2020-06-24 07:07 | XMS REPORT | Clinical Summary ---
:1955 Author Organization [facility] Address [address] [place] [id number] Care Team Providers Name Role Phone Unavailable Primary Care Provider Unavailable Allergies No Known Active Allergies Medications Medication Sig Dispensed Refills Start [...] Assigned at Date Recorded Not on file Last Filed Vital Signs Not on file Plan of Treatment Health Maintenance Due Date Last Done Comments FIT Colorectal Cancer Scrn 2006 IMM Influenza Seasonal Feb to July (>/= 19 yrs) 02/27/2020 Results Not on fileafter 06/24/2019 Insurance Payer Benefit Plan / Subscriber ID Effective Dates Phone Addre ss Type Group [employer] SELF-PA[employer] [id number] 2015-Prese [phone] SELF-[place] UNSCREENED [address] [phone] (Work) Advance Directives Code Status Date Activated Date Inactivated Comments Full Code 06/15/2010 2:59 PM 06/17/2010 2:54 PM Full Code 06/04/2010 6:03 AM 06/05/2010 6:33 PM
--- OUTSIDE RECORDS SUMMARY | 2020-06-24 07:09 | XMS REPORT | Clinical Summary ---
:1955 Author Organization [facility] Address [address] [place] [address] Care Team Providers Name Role Phone Unavailable Primary Care Provider Unavailable Allergies No Known Allergies Medications Medication Sig Dispensed Refills Start Date End Date Status lactulose (CHRONULAC) TK 15 ML PO TID 11 09/29/2018 Active 10 gram/15 mL solution spironolactone Take 100 mg by 0 Active (ALDACTONE) 100 MG mouth 2 (two) tablet times daily. carvedilol (COREG) Take 6.25 mg by 0 07/04/2018 Active 3.125 MG tablet mouth 2 (two) times daily with breakfast and dinner . folic acid (FOLVITE) 1 Take 1 mg by 3 11/08/2018 Active MG tablet mouth daily . hydrOXYzine (ATARAX) 50 Take 50 mg by 0 04/11/2018 Active MG tablet mouth as needed . lisinopril Take 20 mg by 0 07/04/2018 Acti ve (PRINIVIL,ZESTRIL) 20 mouth daily . MG tablet metFORMIN (GLUCOPHAGE) Take 500 mg by 0 07/10/2018 Active 500 MG tablet mouth 2 (two) times daily with breakfast and dinner . pantoprazole (PROTONIX) Take 40 mg by 0 06/06/2018 Active 40 MG tablet mouth daily . pitavastatin calcium Take 2 mg by 0 Active (LIVALO) 2 mg Tab mouth daily . tablet rifAXIMin 550 mg Tab Take 550 mg by 0 Active mouth 2 (two) times daily. furosemide (LASIX) 40 Take 2 tablets 60 tablet 1 06/04/2019 Active MG tablet (80 mg total) by mouth 2 (two) times daily. Additional Information Patient taking differently: 40 mg Oral 2 times daily, Reason: Other, Reported on 03/13/2020 11:26 AM clobetasoL (TEMOVATE) Apply 1 application 60 g 6 12/30/19 20 Active 0.05 % cream topically 2 (two) times daily. penicillin v Take 500 mg by 0 Ac tive potassium (VEETID) mouth 3 (three) 500 MG tablet times daily. furosemide (LASIX) 20 Take 20 mg by mouth 0 Active MG tablet 2 (two) times daily. thiamine (vitamin Take 100 mg by 0 Active B-1) 100 MG tablet mouth daily. ALPRAZolam (XANAX) 1 TK 1 T PO BID PRF 0 11/13/2018 12/30/19 Discontinued (Stop MG tablet ANXIETY 20 Taking at Discharge) thiamine 100 mg Tab TK 1 T PO D 3 11/19/2018 0 Discontinued (Stop tablet 20 Taking at Discharge) triamcinolone Apply 1 application 0 08/05/201812/29 Discontinued (Stop (KENALOG) 0.1 % topically 2 (two) 20 Taking at topical cream times daily. Dis charge) clobetasol (TEMOVATE) Apply 1 application 0 12/18/19 19 12/30/19 Discontinued 0.05 % cream topically 2 (two) 20 (Reorder) times daily. omeprazole (PRILOSEC) Take 40 mg by mouth 0 12/30/19 Discontinued (Stop 40 MG capsule daily. 20 Taking at Discharge) thiamine (VITAMIN Take 100 mg by 0 0 Discontinued (Stop B-1) 100 MG tablet mouth daily. 20 Taking at Discharge) Active Problems Problem Noted Date COVID-19 virus infection 01/20/2020 Overview: Positive test 01/10/2020 SOB (shortness of breath) 12/24/2019 Cirrhosis 06/04/2019 History of alcohol use 03/18/2019 Secondary esophageal varices without bleeding 03/18/20 19 Pre-transplant evaluation for chronic liver disease Last Assessment & Plan: He is an acceptable candidate for liver transplant pending further imaging/testing and official review at [facility]. Psoriasis 12/19/2018 Last Assessment & Plan: Continue [...] Encounters Date Type Specialty Care Team Description 06/15/2020 Documentation Transplant Hepatology Samira Martínez RN 06/11/2020 Telephone Transplant Hepatology Bautista Stein ([facility] Marta Lindsey Callng to sched evonbenedict Donisashish tejedat deonte e now & clinic & mri due Apri. ) 06/05/2020 Abstract Transplant Hepatology Samira Martínez RN 06/05/2020 Orders Only Transplant Hepatology Sally Martínez organ transplant status (Primary Dx); Samira Arita RN Hepatic cirrhos is, unspecified hepatic cirrhosis type, unspecified whether ascites present (HCC); Screening for m alignant neoplasm 05/20/2020 Documentation Transplant Hepatology Samira Martínez RN 05/20/2020 Documentation Transplant Hepatology Marta Stein 05/18/2020 Telephone Transplant Hepatology Bautista Stein (Called Marta Lindsey to schedule lab s for meld update due now. Spoke w/Chanda she is going to chip e the pt [facility] 05/19 orders released.) 05/18/2020 Orders Only Transplant Hepatology Roro Steiniti organ transplant status; Marta Lindsey Hepatic cirrhos is, unspecified hepatic cirrhosis type, unspecified whether ascites present (HCC) 05/05/2020 Telephone Transplant Hepatology Bautista Stein (LVM. Marta Lindsey Calling to see what date pt would l hermann to have meld la bs drawn which are due now.) 05/01/2020 Telephone Transplant Hepatology Mauricio wrong labs Samira Arita RN 05/01/2020 Telephone Transplant Hepatology van Martínez o verdue Samira Arita RN 04/20/2020 Orders Only Transplant Hepatology Roro Irviniti ng organ transplant status (Primary Dx); DIANE Diez Hepatic cirrhos is, unspecified hepatic cirrhosis type, unspecified whether ascites present (HCC) 04/16/2020 Telephone Transplant Hepatology Bautista Stein (called Marta Lindsey to schedule roxann d labs due now. Pt will [facility] gong [facility] tomorrow 04/17. Lab orders released .) 04/16/2020 Orders Only Transplant Hepatology Roro Steiniti organ transplant status; Marta Lindsey Cirrhosis of li tadeo without ascites, unspecified hepatic cirrhosis type (HCC) 03/18/2020 Documentation Transplant Hepatology Emil Marta Lindsey 03/18/2020 Documentation Central Scheduling Emil Marta Lindsey 03/18/2020 Documentation Central Scheduling Emil Marta Lindsey 03/18/2020 Documentation Transplant Hepatology Emil Marta Lindsey 03/18/2020 Documentation Transplant Hepatology Samira Martínez RN 03/13/2020 Hospital Encounter Khaderi, Cirrhosis of liver without ascites, unspecified hepatic cirrhosis type (HCC); Veena Alexandre, Screening for e ndocrine, metabolic and immunity disorder; Awaiting organ transplant status 03/13/2020 Hospital Encounter Radiology Jameel, Awaiting organ transplant status; Yuan Sena MD Alcoholic cirrh osis of liver with ascites (HCC); Screening for m alignant neoplasm 03/13/2020 Clinical Support Cardiology Jameel, Pre-op test ing (Primary Dx); Yuan Sena MD Awaiting organ transplant status; Panerio, Alcoholic cirrh osis of liver with ascites (HCC); DIANE Gay Screening for m alignant neoplasm 03/13/2020 Telephone Transplant Hepatology Mauricio critic al labs Samira Arita RN 03/13/2020 Travel 02/28/2020 Telephone Transplant Hepatology Bautista Stein (Scheduled 02/26 covid testing, lab, mri & bmds appt s w/pt. Pt asked me to call inform chanda about ap pts. Called chanda n o answer detailed message left. Itinerary sonya d. ) 02/28/2020 Telephone Transplant Hepatology Bautista Stein (Scheduled 02/26 covid testing, lab, mri & bmds appt s w/pt. Pt asked me to call inform chanda about ap pts. Called chanda n o answer detailed message left. Itinerary sonya d. ) 02/27/2020 Orders Only Transplant Hepatology Mauricio, Awaiti ng organ transplant status (Primary Dx); Samira Arita RN Alcoholic cirrh osis of liver with ascites (HCC); Screening for m alignant neoplasm 02/19/2020 Telephone Transplant Hepatology Mauricio, Follow -up Samira Arita RN 02/12/2020 Telephone Transplant Hepatology Mauricio, Follow -up Samira Arita RN 02/05/2020 Audio - Hepatology Ruthann Pizarro Cirrhosis of li tadeo without ascites, unspecified [...] with ascites (HCC) 01/21/2020 Telephone Transplant Hepatology Bautista Stein (Cancelled 01/28 2 appts and rescheduled to [...] RN 01/06/2020 Orders Only Transplant Hepatology Mauricio, Awaeric hines organ transplant status (Primary Dx); Samira Arita RN Screening for m alignant neoplasm; Cirrhosis of li tadeo without ascites, unspecified hepatic cirrhosis type (HCC) 01/03/2020 Documentation Transplant Hepatology Emil Marta Lindsey 01/01/2020 Documentation Transplant Hepatology Eiml Marta Lindsey 12/31/2019 Anesthesia Event Gastroenterology Ban Muse MD 12/31/2019 Telephone Transplant Hepatology Meil, Appoin tment Marta Lindsey (Scheduled 12/27 8 hepatology clin ic ([facility]) appt w/pt. Itinerar y mailed. ) 12/29/2019 Surgery Gastroenterology CELESTINE Centeno MD ENDOSCOPY,TRUDY NG 12/29/2019 Anesthesia Event Gastroenterology Ban Muse MD 12/28/2019 Anesthesia Event Gastroenterology Clair Henderson CRNA 12/28/2019 Anesthesia Event Gastroenterology Clair Henderson CRNA 12/24/2019 Hospital Encounter General Internal Lizzie Metcalf [...] 10/08/2019 Telephone Transplant Hepatology Mauricio, Follow -up Saimra Arita RN 10/07/2019 Orders Only Transplant Hepatology [...] 09/26/2019 Telephone Transplant Hepatology Bautista Stein (LVM. Marta Lindsey REscheduled mis sed mri due now & clinic, mri, bm ds & feghali due Jan t.) 08/29/2019 Documentation Transplant Hepatology Samira Martínez RN 08/26/2019 Orders Only Transplant Hepatology Keith Martínez sis of liver without ascites, unspecified hepatic cirrhosis type (HCC) (Primary Dx); Samira Arita RN Screening for e ndocrine, metabolic and immunity disorder; Awaiting organ transplant status 08/26/2019 Abstract Transplant Hepatology Samira Martínez RN 08/20/2019 Telephone Transplant Hepatology Echo Swift MD 08/20/2019 Documentation Transplant Hepatology Veena Swift MD 08/20/2019 Telephone Transplant Hepatology Keith Swift sis Follow-up Veena Alexandre MD 08/20/2019 Documentation Transplant Hepatology Eddie Steinberg RN 08/16/2019 Telephone Transplant Hepatology MONE Irvin RN 07/15/2019 UNOS Charge Visit Transplant Shamar Michaels Jr., MD 07/12/2019 Telephone Transplant Hepatology Bautista Stein Marta Lindsey (Cancelled 07/27 0 hepatology appt and scheduled 08/19 clinic & mri ap pt w/pt. Itinerar y mailed.) 07/12/2019 Documentation Transplant Hepatology Maricel Barber RN 07/10/2019 Orders Only Transplant Hepatology Emil, Metabo lic syndrome; Marta Lindsey Pre-transplant evaluation for chronic liver disease; Cirrhosis [...] (HCC); Metabolic syndr ome; Abnormal liver function after 06/24/2019 Immunizations Name Administration Dates Next Due Pneumococcal Conjugate (Prevnar) 13-Valent 10/28/2018 Family History Medical History Relation Name Comments Diabetes Brother Hypertension Brother Diabetes Father Liver disease Mother Cancer Sister Relation Name Status Comments Brother Alive Father Mother Sister Social History Tobacco Use Types Packs/Day Years Used Date Former Smoker 1.5 40 Quit: 10/04/19 18 Smokeless Tobacco: Never Used [...] Not on file Last Filed Vital Signs Vital Sign Reading Time Taken Comments Blood Pressure 142/64 03/13/2020 10:38 AM CDT Pulse 88 03/13/2020 10:38 AM CDT Temperature 36.8 C (98.2 F) 03/13/2020 10:38 AM CDT Respiratory Rate 24 03/13/2020 10:38 AM CDT Oxygen Saturation 100% 03/13/2020 10:38 AM CDT Inhaled Oxygen Concentration - - Weight 108.4 kg (239 lb) 03/13/2020 10:38 AM CDT Height 167.6 cm (5' 6") 03/13/2020 10:38 AM CDT Body Mass Index 38.58 03/13/2020 10:38 AM CDT Plan of Treatment Date Type Specialty Care Team Description 09/01/2020 Appointment Radiology Terrell Cyr MD [address] [address] [phone] 09/01/2020 Follow-Up Transplant Hepatology Royer Cyr MD [address] [address] 0 [phone] Health Maintenance Due Date Last Done Comments PNEUMOCOCCAL VACCINE 0-64 YRS (1 of 1 - PPSV23) 12/23/2018 10/28/2018 MEDICARE ANNUAL WELLNESS (YEAR 2 or FIRST YEAR if no 02/27/2019 IPPE) INFLUENZA VACCINE (#1) 2020 04/11/2018 DEPRESSION SCREENING (12+) 05/29/2020 LIPID PANEL 12/20/2021 12/20/2018 COLON CANCER SCREENING COLONOSCOPY 06/12/2028 06/12/2018 Procedures Procedure Name Priority Date/Time Associated Diagnosis Comme nts BILIRUBIN, DIRECT Routine 06/12/2020 12:25 Awaiting organ Resu lts for this PM BUFFET MANAGER transplant statu s procedure are in Cirrhosis of liver the resul ts without ascites, section. unspecified hepatic cirrhosis type (HCC) CBC W/PLT COUNT & Routine 06/12/2020 12:25 Awaiting organ Resu lts for this AUTO DIFFERENTIAL PM BUFFET MANAGER transplant sta tus procedure are in Cirrhosis of liver the resul ts without ascites, section. unspecified hepatic cirrhosis type (HCC) COMPREHENSIVE Routine 06/12/2020 12:25 Awaiting organ Results for this METABOLIC PANEL PM BUFFET MANAGER transplant statu s procedure are in Cirrhosis of liver the resul ts without ascites, section. unspecified hepatic cirrhosis type (HCC) PROTHROMBIN TIME/INR Routine 06/12/2020 12:25 Awaiting organ R esults for this PM BUFFET MANAGER transplant statu s procedure are in Cirrhosis of liver the resul ts without ascites, section. unspecified hepatic cirrhosis type (HCC) COMPREHENSIVE Routine 05/19/2020 8:57 Awaiting organ Results for this METABOLIC PANEL AM BUFFET MANAGER transplant statu s procedure are in Hepatic cirrhosis, the resul ts unspecified hepatic section. cirrhosis type, unspecified whether ascites present (HCC) CBC W/PLT COUNT & Routine 05/19/2020 8:57 Awaiting organ Resu lts for this AUTO DIFFERENTIAL AM BUFFET MANAGER transplant sta tus procedure are in Hepatic cirrhosis, the resul ts unspecified hepatic section. cirrhosis type, unspecified whether ascites present (HCC) PROTHROMBIN TIME/INR Routine 05/19/2020 8:57 Awaiting organ R esults for this AM BUFFET MANAGER transplant statu s procedure are in Hepatic cirrhosis, the resul ts unspecified hepatic section. cirrhosis type, unspecified whether ascites present (HCC) BILIRUBIN, DIRECT Routine 05/19/2020 8:57 Awaiting organ Resu lts for this AM BUFFET MANAGER transplant statu s procedure are in Hepatic cirrhosis, the resul ts unspecified hepatic section. cirrhosis type, unspecified whether ascites present (HCC) MR ABDOMEN WITH & Routine 03/13/2020 2:05 Awaiting organ Resu lts for this WITHOUT IV CONTRAST PM CDT transplant s tatus procedure are in Alcoholic cirrhosis of the r esults liver with ascites section. (HCC) Screening for malignant neoplasm XR DXA BONE DENSITY Routine 03/13/2020 12:50 Cirrhosis of live r Results for this STUDY PM CDT without ascites, procedure a re in unspecified hepatic the resu lts cirrhosis type ( HCC) section. Screening for endocrine, metabolic and immunity dis order Awaiting organ transplant status CBC W/PLT COUNT & Routine 03/13/2020 11:59 Awaiting organ Resu lts for this AUTO DIFFERENTIAL AM CDT transplant sta tus procedure are in Alcoholic cirrhosis of the r esults liver with ascites section. (HCC) PROTHROMBIN TIME/INR Routine 03/13/2020 11:59 Awaiting organ R esults for this AM CDT transplant statu s procedure are in Alcoholic cirrhosis of the r esults liver with ascites section. (HCC) CBC W/PLT COUNT & Routine 03/13/2020 11:59 Awaiting organ Resu lts for this AUTO DIFFERENTIAL AM CDT transplant sta tus procedure are in Alcoholic cirrhosis of the r esults liver with ascites section. (HCC) ALPHA FETOPROTEIN Routine 03/13/2020 11:59 Awaiting organ Resu lts for this (AFP), TUMOR MARKER AM CDT transplant s tatus procedure are in Alcoholic cirrhosis of the r esults liver with ascites section. (HCC) Screening for malignant neoplasm COMPREHENSIVE Routine 03/13/2020 11:58 Awaiting organ Results for this METABOLIC PANEL AM CDT transplant statu s procedure are in Alcoholic cirrhosis of the r esults liver with ascites section. (HCC) BILIRUBIN, DIRECT Routine 03/13/2020 11:58 Awaiting organ Resu lts for this AM CDT transplant statu s procedure are in Alcoholic cirrhosis of the r esults liver with ascites section. (HCC) MISCELLANEOUS LAB Routine 03/13/2020 11:58 Awaiting organ ORDER AM CDT transplant statu s Alcoholic cirrhosis of liver with ascites (HCC) SARS-COV2/RT-PCR STAT 03/13/2020 11:36 Pre-op testing Resul ts for this ([facility] & REF LABS) AM CDT procedure are in the results section. REPORT OF PROCEDURE - 12/31/2019 3:30 ENDOSCOPY [...] 07/10/2019 12:00 Resu lts for this AM BUFFET MANAGER procedure are i n the results section. COMPREHENSIVE Routine 07/10/2019 12:00 Metabolic syndr ome Results for this METABOLIC PANEL AM BUFFET MANAGER Pre-transplant procedure are in evaluation for chronic the r esults liver disease section. Cirrhosis of liver without ascites, unspecified hepatic cirrhosis type ( HCC) Abnormal liver function PROTHROMBIN TIME/INR Routine 07/10/2019 12:00 Metabolic syndrome Results for this AM BUFFET MANAGER Pre-transplant procedure are in evaluation for chronic the r esults liver disease section. Cirrhosis of liver without ascites, unspecified hepatic cirrhosis type ( HCC) Abnormal liver function CBC W/PLT COUNT & Routine 07/10/2019 12:00 Metabolic syn drome Results for this AUTO DIFFERENTIAL AM BUFFET MANAGER Pre-transplant procedur e are in evaluation for chronic the r esults liver disease section. Cirrhosis of liver without ascites, unspecified hepatic cirrhosis type ( HCC) Abnormal liver function ALPHA FETOPROTEIN Routine 07/10/2019 12:00 Metabolic syn drome Results for this (AFP), TUMOR MARKER AM BUFFET MANAGER Pre-transplant proced ure are in evaluation for chronic the r esults liver disease section. Cirrhosis of liver without ascites, unspecified hepatic cirrhosis type ( HCC) Abnormal liver function after 06/24/2019 Results Prothrombin time/INR (06/12/2020 12:25 PM BUFFET MANAGER)Only the most recent of7 results within the time period is included. Pathologist Sig nature INR 1.3 (H) [facility] Comment: Reference Range 0.9-1.1 Moderate-intensity Warfarin Therapy 2.0-3.0 Higher-intensity Warfarin Therapy 3.0-4.0 PT 13.1 (H) 9.0 - 11.5 sec [facility] Comment: For additional information, please refer to http://education.[employer]/faq/EPV472 (This link is being provided for informational/ educational purposes only.) Specimen Blood Narrative Performed At FASTING:NO [facility] FASTING: NO Resulting Agency Comment Performing Organization Information: Site ID: [id number] Name: [facility] Address: [address] [place] [phone] Director: Terrell Romeo Performing Organization Address City/State/Zipcode Phone Number [facility] [address] [place] [address] [facility] CBC with platelet count + automated diff (06/12/2020 12:25 PM BUFFET MANAGER)Only the most recent of4 resultswithin the time period is included. Pathologist Sig nature WBC 4.3 3.8 - 10.8 [facility] Thousand/uL RBC 3.91 (L) 4.20 - 5.80 [facility] Million/uL Hemoglobin 7.6 (L) 13.2 - 17.1 g/dL [facility] Hematocrit 26.3 (L) 38.5 - 50.0 % [facility] MCV 67.3 (L) 80.0 - 100.0 fL [facility] MCH 19.4 (L) 27.0 - 33.0 pg [facility] MCHC 28.9 (L) 32.0 - 36.0 g/dL [facility] RDW 17.6 (H) 11.0 - 15.0 % [facility] Platelets 66 (L) 140 - 400 [facility] Comment: Thousand/uL Review of the peripheral smear reveals decreased numbers of platelets. MPV 7.5 - 12.5 fL [facility] Comment: Due to platelet or RBC variability in size or shape the result cannot be reported accurately. # Neutros 1,724 1,500 - 7,800 [facility] cells/uL # Lymphs 1,724 850 - 3,900 [facility] cells/uL # Monos 632 200 - 950 [facility] cells/uL # Eos 159 15 - 500 [facility] cells/uL # Baso 60 0 - 200 cells/uL [facility] % Neutros 40.1 % [facility] % Lymphs 40.1 % [facility] % Monos 14.7 % [facility] % Eos 3.7 % [facility] % Baso 1.4 % [facility] Comment(s) [facility] Comment: Polychromasia 1 + Microcytosis 1 + Hypochromasia 1 + Anisocytosis 1 + Specimen Blood Narrative Performed At FASTING:NO [facility] FASTING: NO Resulting Agency Comment Performing Organization Information: Site ID: [id number] Name: [facility] Address: [address] [place] [address], [place] [address] Director: Terrell Romeo Performing Organization Address City/[facility]/Zipcode Phone Number [facility] [address] [place] [address] [facility] Bilirubin, direct (06/12/2020 12:25 PM BUFFET MANAGER)Only the most recent of4 results within the time period is included. Pathologist Sig nature Bilirubin, Total 1.7 (H) 0.2 - 1.2 mg/dL [facility] Bilirubin, Direct 0.6 (H) < OR = 0.2 mg/dL [facility] Bilirubin, Indirect 1.1 0.2 - 1.2 mg/dL (calc) [facility] Specimen Blood Narrative Performed At FASTING:NO [facility] FASTING: NO Resulting Agency Comment Performing Organization Information: Site ID: [id number] Name: [facility] Address: [address] [place] [phone] Director: Terrell Romeo Performing Organization Address [facility]/Zipcode Phone Number [facility] [address] [place] [address] [facility] Comprehensive metabolic panel (06/12/2020 12:25 PM BUFFET MANAGER)Only the most recent of6 resultswithin the time period is included. Glucose 134 65 - 139 [facility] Comment: mg/dL Non-fasting reference interval BUN 7 7 - 25 mg/dL [facility] Creatinine 0.66 (L) 0.70 - 1.25 [facility] Comment: mg/dL For patients >49 years of age, the reference limit for Creatinine is approximately 13% higher for people identified as -[place]. eGFR If NonAfricn 103 > OR = 60 [facility] Am mL/min/1.73m2 eGFR If Africn Am 119 > OR = 60 [facility] mL/min/1.73m2 BUN/Creatinine 11 6 - 22 (calc) [facility] Ratio Sodium 139 135 - 146 [facility] mmol/L Potassium, Serum 3.6 3.5 - 5.3 [facility] mmol/L Chloride 107 98 - 110 [facility] mmol/L Carbon Dioxide, 28 20 - 32 [facility] Total mmol/L Calcium, Serum 8.1 (L) 8.6 - 10.3 [facility] mg/dL Protein, Total, 6.2 6.1 - 8.1 [facility] Serum g/dL Albumin 2.9 (L) 3.6 - 5.1 [facility] g/dL GLOBULIN ([facility]) 3.3 1.9 - 3.7 [facility] g/dL (calc) Albumin Globulin 0.9 (L) 1.0 - 2.5 [facility] Ratio (calc) Bilirubin, Total 1.7 (H) 0.2 - 1.2 [facility] mg/dL Alkaline 140 35 - 144 U/L [facility] Phosphatase, S AST (SGOT) 29 10 - 35 U/L [facility] ALT (SGPT) 15 9 - 46 U/L [facility] Specimen Blood Narrative Performed At FASTING:NO [facility] FASTING: NO Resulting Agency Comment Performing Organization Information: Site ID: [id number] Name: [facility] Address: [address] [place] [phone] Director: Terrell Romeo Performing Organization Address City/State/Zipcode Phone Number [facility] [address] [place] [address] [facility] MRI abdomen with and without contrast (03/13/2020 2:05 PM CDT) Specimen Narrative Performed At FINAL REPORT [employer] MRI of the abdomen dated March 13 0 COMPARISON: December 19, 2018 Comment: Multiplanar T1 and T2-weighted images of the abdomen, postcontrast axial and coronal T1 weight ed images of the abdomen were obtained. Liver is is cirrhotic in appearance with irregular margins. No abnormal enhancement or suspicious mass is seen in the liver. Spleen is enlarged measuring approximately 16.8 x 4.9 x 11.4 cm. The splenic, superior mesenteric, portal, an d hepatic veins are patent. Main portal vein measures approximately 1.4 cm. There is recannulization periumbilical vein. Para esophageal varices is present. Gallbladder is contracted. No gallstone or biliary dilatation is seen. Pancreas and adrenals are unremarkable. Both kidneys are normal in size and func tioning. There is trace amount of ascites in the abdomen. A duodenal diverticulum is present. IMPRESSION: 1. Cirrhosis with splenomegaly and taylor l hypertension. 2. No suspicious hepatic mass. 3. Trace ascites. Signed: Brenda De Diso MD Report Verified Date/Time: 03/13/2020 14:43:24 Procedure Note Interface, External Ris In - 03/13/2020 2:45 PM CDT FINAL REPORT MRI of the abdomen dated March 13 0 COMPARISON: December 19, 2018 Comment: Multiplanar T1 and T2-weighted images of the abdomen, postcontrast axial and coronal T1 weight ed images of the abdomen were obtained. Liver is is cirrhotic in appearance with irregular margins. No abnormal enhancement or suspicious mass is seen in the liver. Spleen is enlarged measuring approximately 16.8 x 4.9 x 11.4 cm. The splenic, superior mesenteric, portal, an d hepatic veins are patent. Main portal vein measures approximately 1.4 cm. There is recannulization periumbilical vein. Para esophageal varices is present. Gallbladder is contracted. No gallstone or biliary dilatation is seen. Pancreas and adrenals are unremarkable. Both kidneys are normal in size and func tioning. There is trace amount of ascites in the abdomen. A duodenal diverticulum is present. IMPRESSION: 1. Cirrhosis with splenomegaly and taylor l hypertension. 2. No suspicious hepatic mass. 3. Trace ascites. Signed: Brenda De Dios MD Report Verified Date/Time: 03/13/2020 1 4:43:24 Performing Organization Address City/State/Zipcode Phone Number [employer] XR dxa bone density study (03/13/2020 12:50 PM CDT) Specimen Narrative Performed At FINAL REPORT [employer] Bone density study, 03/13/2020 Clinical History: Screening Bone mineral density measurement Lumbar spine1.110 gm/cm2 Femoral neck0.918 gm/cm2 Standard deviation from young adult popu lation (T-score) Lumbar spine-0.9 Femoral neck-1.2 Standard deviation for age adjusted popu lation (Z-score) Lumbar spine-1.2 Femoral neck-0.7 According to medical literature, this co rresponds to no increased risk of an osteoporotic fracture of the lumbar spine as compared to the young adult population. The femoral neck bone mineral density corresponds to 1-2 times increased risk of an osteoporotic fracture as compared to the young adult populatio n. Impression: Osteopenia of the femoral neck. Complete computer analysis will be sent shortly. Diagnostic criteria for osteoporosis BMD: Bone mineral density Normal: BMD measurement less than one st andard deviation from young adult population Osteopenia: BMD measurement between 1 an d 2.5 standard deviations Osteoporosis: BMD measurement greater th an 2.5 standard deviations Severe osteoporosis: Osteoporosis and on e or more fragility fractures Signed: Lindsay Barber MD Report Verified Date/Time: 03/13/2020 12:46:53 Reading Location: [address] Room Procedure Note Interface, External Ris In - 03/13/2020 12:51 PM CDT FINAL REPORT Bone density study, 03/13/2020 Clinical History: Screening Bone mineral density measurement Lumbar spine1.110 gm/cm2 Femoral neck0.918 gm/cm2 Standard deviation from young adult popu lation (T-score) Lumbar spine-0.9 Femoral neck-1.2 Standard deviation for age adjusted popu lation (Z-score) Lumbar spine-1.2 Femoral neck-0.7 According to medical literature, this co rresponds to no increased risk of an osteoporotic fracture of the lumbar spine as compared to the young adult population. The femoral neck bone mineral density corresponds to 1-2 times increased risk of an osteoporotic fracture as compared to the young adult populatio n. Impression: Osteopenia of the femoral n conor. Complete computer analysis will be sent shortly. Diagnostic criteria for osteoporosis BMD: Bone mineral density Normal: BMD measurement less than one st andard deviation from young adult population Osteopenia: BMD measurement between 1 an d 2.5 standard deviations Osteoporosis: BMD measurement greater th an 2.5 standard deviations Severe osteoporosis: Osteoporosis and on e or more fragility fractures Signed: Lindsay Barber MD Report Verified Date/Time: 03/13/2020 1 2:46:53 Reading Location: [address] Mammo Re ading Room Performing Organization Address City/State/Zipcode Phone Number RIS CBC with platelet count + automated diff (03/13/2020 11:59 AM CDT)Only the most recent of6 resultswithin the time period is included. Pathologist Sig nature WBC 6.6 3.5 - 10.5 [facility] KL [facility] RBC 3.53 (L) 4.63 - 6.08 [facility] M/L [facility] Hemoglobin 8.5 (L) 13.7 - 17.5 [facility] GM/DL [facility] Hematocrit 28.4 (L) 40.1 - 51.0 % [facility] MCV 80.5 79.0 - 92.2 fL [facility] MCH 24.1 (L) 25.7 - 32.2 pg [facility] MCHC 29.9 (L) 32.3 - 36.5 [facility]/DL [facility] RDW 16.5 (H) 11.6 - 14.4 % [facility] Platelets 95 (L) 150 - 450 K/CU [facility] MPV 10.4 9.4 - 12.4 fL [facility] nRBC 0 0 - 0 /100 WBC [facility] % Neutros 56 % [facility] % Lymphs 26 % [facility] % Monos 13 % [facility] % Eos 3 % [facility] % Baso 1 % [facility] # Neutros 3.70 1.78 - 5.38 [facility] # Lymphs 1.73 1.32 - 3.57 [facility] # Monos 0.85 (H) 0.30 - 0.82 [facility] # Eos 0.20 0.04 - 0.54 [facility] # Baso 0.06 0.01 - 0.08 [facility] Immature 1 0 - 1 % [facility] Granulocytes-Relative [facility] Specimen Blood Performing Organization Address City/State/Zipcode Phone Number [facility] [address] [place] [address] [place] Alpha fetoprotein (AFP), tumor marker (03/13/2020 11:59 AM CDT)Only the most recent of3 resultswithin the time period is included. Pathologist Sig nature Alpha-Fetoprotein <2.0 <10.0 ng/mL [facility] Specimen Blood Narrative Performed At Auto Body Man ID - AAHAMID [facility] Performing Organization Address City/State/Zipcode Phone Number [address] [address] CENTER Miscellaneous lab test (03/13/2020 11:58 AM CDT) Pathologist Sig nature Scan Result [facility] Specimen Blood Narrative Performed At This result has an attachment that is no t available. Performing Organization Address City/State/Zipcode Phone Number [facility] [address] [place], [place] SARS-CoV2/RT-PCR ([facility]) (03/13/2020 11:36 AM CDT) SARS-COV2/RT-PCR Negative Not Detected, [facility] Negative, See [facility] external report CENTER for linked test SARS-COV-2 [facility] KAT [facility] PERFORMING LAB [facility] Specimen Other - Nasopharyngeal wall structure (b guero structure) Narrative Performed At Negative result for this test determines that [facility] SARS-CoV-2 RNA was not present in the specimen above the Limit of Detection (LOD). However, Negative results do not preclude SARS-CoV-2 infection and should not be used as the sole basis for treatment or patient management decisions. Negative results must be combined with clinical observations, patient history, and epidemiological information. A false negative result may occur if a specimen is improperly collected, transported or handled. A false negative result should be considered if patient's recent exposures or clinical presentation indicate that COVID-19 (SARS-CoV-2) is likely and diagnostic tests for other causes of illness are negative. Re-testing should be considered in cases of suspected false negatives. The limit of detection for this assay is 800 copies/mL. This SARS CoV-2 test is a real-time RT-PCR test intended for the qualitative detection of nucleic acid from SARS-CoV-2 in a nasopharyngeal swab specimen collected from individuals suspected of COVID-19 by their healthcare provider. This test has not been Food and Drug Administration (FDA) cleared or approved. This is a modified version of an approved Emergency Use Authorization (EUA) and is in the process of review by the FDA. Once authorized by the FDA, the issued EUA will be effective until the declaration that circumstances exist justifying the authorization of the emergency use of in vitro diagnostic tests for detection and/or diagnosis of COVID-19 is terminated under Section 564(b)(2) of the Act or the EUA is revoked under Section 564(g) of the Act. Fact Sheet for Healthcare Providers: https://www.[employer]/sites/default/files/pro duct/documents/Fact_Sheet_HC_Providers_Lyra_SA RS-CoV-2.pdf Fact Sheet for Healthcare Patients: https://www.[employer]/sites/default/files/pro duct/documents/Fact_Sheet_Patients_Lyra_SARS-C oV-2.pdf Performing Laboratory: [place] [address] Performing Organization Address City/State/Zipcode Phone Number [facility] [address] [place], [place] [id number] CENTER EKG-SCANNED (12/31/2019 3:30 PM CDT) Narrative Performed At This result has an attachment that is no t available. RHYTHM STRIP - SCAN (12/30/2019 5:20 PM CDT) Narrative Performed At This result has an attachment that is no t available. POC-Glucose meter (12/30/2019 7:35 AM CDT)Only the most recent of18 results within the time period is included. POC-Glucose Meter 121 (H)Comment: 70 - 110 mg/dL [facility] : TESTED AT [facility] [address] [facility], [address]: Auto Body Man/Technic tone ID = [id number] for RADHA MURGUIA Specimen Blood Performing Organization Address [facility] Phone Number [address] [phone] [place] Hepatic function panel (12/30/2019 4:33 AM CDT)Only the most recent of5 results within the time period is included. Pathologist Sig nature Protein, Total 5.8 (L) 6.0 - 8.3 gm/dL [facility] Albumin 1.9 (L) 3.5 - 5.0 g/dL [facility] Total Bilirubin 2.6 (H) 0.2 - 1.2 mg/dL [facility] Bilirubin, Direct 1.6 (H) 0.1 - 0.5 mg/dL [facility] Alkaline Phosphatase 142 40 - 150 U/L [facility] AST 57 (H) 5 - 34 U/L [facility] ALT 25 6 - 55 U/L [facility] Specimen Blood Narrative Performed At Auto Body Man ID - PIAYA L [facility] Specimen slightly icteric Performing Organization Address City/[facility]/Zipcode Phone Number [address] [address] [place] REPORT OF PROCEDURE - ENDOSCOPY URL (12/29/2019 11:44 AM CDT) Narrative Performed At This result has an attachment that is no t available. REPORT OF PROCEDURE - ENDOSCOPY URL (12/29/2019 11:29 AM CDT) Narrative Performed At This result has an attachment that is no t available. Basic Metabolic Panel (12/29/2019 4:55 AM CDT)Only the most recent of4 results within the time period is included. Sodium 129 (L) 136 - 145 meq/L [facility] Potassium 4.0 3.5 - 5.1 meq/L [facility] Chloride 102 98 - 107 meq/L [facility] CO2 24 22 - 29 meq/L [facility] BUN 9 7 - 21 mg/dL [facility] Creatinine 0.68 0.57 - 1.25 [facility] mg/dL [facility] Glucose 123 (H) 70 - 105 mg/dL [facility] Calcium 7.2 (L) 8.4 - 10.2 [facility] mg/dL [facility] EGFR 118Comment: mL/min/1.73 sq [facility] ESTIMATED GFR IS NOT [facility] ACCURATE [place] CREATININE CLEARANCE IN PREDICTING GLOMERULAR FILTRATION RATE. ESTIMATED GFR IS NOT APPLICABLE FOR DIALYSIS PATIENTS. Specimen Blood Narrative Performed At Auto Body Man ID - PIAYA L [facility] Specimen slightly icteric Performing Organization Address City/State/Zipcode Phone Number [facility] [address] [place] [address] CENTER Manual Differential (12/28/2019 5:21 AM CDT) % Neutros 81 % [facility] % Lymphs 3 % [facility] % Monos 10 % [facility] % Eos 2 % [facility] % Baso 1 % [facility] % Bands 3 0 - 10 % [facility] # Neutros 6.89 (H) 1.78 - 5.38 [facility] # Lymphs 0.26 (L) 1.32 - 3.57 [facility] # Monos 0.85 (H) 0.30 - 0.82 [facility] # Eos 0.17 0.04 - 0.54 [facility] # Baso 0.09 (H) 0.01 - 0.08 [facility] # Bands 0.26 0.00 - 0.80 [facility] Total Counted 100 [facility] WBC Morphology Normal [facility] Platelet Morphology Normal [facility] Polychromasia 1+ few [facility] Hypochromia 2+ moderate [facility] Anisocytosis 2+ moderate [facility] Microcytes 2+ moderate [facility] Macrocytes 1+ few [facility] Poikilocytes 2+ moderate [facility] Target Cells 1+ few [facility] Schistocytes 1+ few [facility] Ovalocytes 1+ few [facility] Tear Drop Cells 1+ few [facility] Noreen Cells 1+ few [facility] Artifact Present [facility] Platelet Conc Decreased [facility] Specimen Blood Narrative Performed At Auto Body Man ID - Carter-Ulisses Obie [facility] User comments: Slide comments: Performing Organization Address City/[facility] Phone Number [facility] [address] [place] [address] CENTER Blood Culture - Routine (Right Venipuncture) (12/26/2019 6:11 PM CDT)Only the most recent of2 resultswithin the time period is included. Pathologist Sig nature Result No growth in 5 days [facility] Specimen Blood - Entire right upper arm (body str ucture) Performing Organization Address [facility]/Zipcode Phone Number [facility] [address] [place] [address] CENTER Vitamin B12 and Folate (12/26/2019 4:24 AM CDT) Pathologist Sig nature Vitamin B12 873 (H) 213 - 816 pg/mL [facility] Folate 12.30 >=7.00 ng/mL [facility] Specimen Blood Narrative Performed At Auto Body Man ID - EDASI [facility] [place] Performing Organization Address City/[facility] Phone Number [address] [address] CENTER Hemoglobin and hematocrit (12/25/2019 3:56 PM CDT) Pathologist Sig nature Hemoglobin 8.6 (L) 13.7 - 17.5 GM/DL [facility] Hematocrit 30.2 (L) 40.1 - 51.0 % [facility] Specimen Blood Narrative Performed At Auto Body Man ID - [id number] [facility] Performing Organization Address City/[facility] Phone Number [address] [address] CENTER Iron, TIBC, % sat. (without ferritin) (12/25/2019 12:02 PM CDT) Pathologist Sig nature Iron 29.0 (L) 40.0 - 160.0 [facility] ug/dL [facility] TIBC 151 (L) 250 - 450 ug/dL [facility] Iron % Saturation 19 (L) 20 - 55 % [facility] Specimen Blood Narrative Performed At Auto Body Man ID - EDASI [facility] Performing Organization Address City/[facility]/Zipcode Phone Number [address] [address] CENTER Ferritin (12/25/2019 12:02 PM CDT) Pathologist Sig nature Ferritin 73.10 5.00 - 275.00 ng/mL [facility] Specimen Blood Narrative Performed At Auto Body Man ID - EDASI [facility] Performing Organization Address City/State/Zipcode Phone Number [facility] [address] [place] [address] CENTER XR chest 1 view portable / bedside (12/24/2019 6:17 PM CDT) Specimen Narrative Performed At FINAL REPORT GE RIS TECHNIQUE: Frontal view of the chest. INDICATION: [...] Daniella Colunga MD Report Verified Date/Time: 12/24/2019 18:52:34 Reading Location: [address] Consult R [facility] Room Procedure Note Interface, External Ris In [...] Verified Date/Time: 12/24/2019 1 8:52:34 Reading Location: [facility] B1 [id number] Consult R eading Room Performing Organization Address City/State/Zipcode Phone Number GE RIS PLATELET ESTIMATION (10/07/2019 9:28 AM CDT)Only the most recent of2 results within the time period is included. Pathologist Sig nature Platelet Estimate DECREASED (A) [facility] Specimen Narrative Performed At FASTING:YES [facility] FASTING: YES Resulting Agency Comment Performing Organization Information: Site ID: [id number] Name: [facility] Address: [address] [place] [address], [place] [address] Director: Terrell Romeo Performing Organization Address City/State/[facility] Phone Number [facility] [address] [place] [address] [facility] after 06/24/2019 Advance Directives For more information, please contact: [phone] Code Status Date Activated Date Inactivated Comments Full Code 12/24/2019 5:39 PM 12/30/2019 1:05 PM This code status was determined by: Patient Full Code 06/04/2019 8:04 AM 06/04/2019 9:17 PM This code status was determined by: Patient Full Code 10/27/2018 11:47 PM 10/31/2018 4:20 PM This code status was determined by: Patient
--- OUTSIDE RECORDS SUMMARY | 2020-06-24 07:14 | XMS REPORT | Continuity of Care Document ---
:1955 Author Organization [facility] t Address [address] [place] [address] Care Team Providers Name Role Phone Juan J Martínez RN Attending Clinician Unavailable Rosalia Stein Attending Clinician Unavailable Albaro CONTRERAS Attending Clinician Unavailable Nathen Jorgensen MD Attending Clinician Dulce CONTRERAS Attending Clinician Unavailable Bettie Swift MD Attending Clinician Natehn JORGENSEN Attending Clinician Unavailable Angeli Pizarro NP Attending Clinician Luis Enrique MELENDREZ Attending Clinician Unavailable Alli Dan MD Attending Clinician Yohannes MELENDREZ Attending Clinician Unavailable Porsche Muse MD Attending Clinician LOUIS Attending Clinician Unavailable Louis GOMEZ Attending Clinician Compa GOMEZ Attending Clinician Chiqui GOMEZ PRandolph Attending Clinician Jacobo GOMEZ Attending Clinician Sera Henderson CRNA Attending Clinician [phone] Harika GOMEZ Attending Clinician Maury Steinberg RN Attending Clinician Unavailable Jame Michaels MD Attending Clinician Sunil CONTRERAS Attending Clinician Unavailable MONAE AN Attending Clinician Unavailable RAMAN GLASER Attending Clinician Unavailable ALLI DAN Attending Clinician Unavailable Doctor Unassigned, Name Attending Clinician Unavailable Yumiko Rod MD Attending Clinician BUBBA LI Attending Clinician Unavailable COMPA Admitting Clinician Unavailable MONAE AN Admitting Clinician Unavailable BUBBA LI Admitting Clinician Unavailable Payers Payer Name Policy Type Policy Effective Date Expiration Date Sour ce Number MEDICAREMEDICARE A [id number] 2018 SYED Pedraza [id number] 2018- 00:00[facility]00 [facility] Condition Condition Condition Status Onset [...] breath) of breath) 00:00: Me dical 00 [place] Cirrhosis Cirrhosis Disease Active [facility] [...] Last [facility] 7-24 Fabiana Pedraza - evaluation evaluation 00:00: t & Plan: Medical for for 00 He is an Center chronic chronic acceptabl liver liver e disease disease candidate for liver transplan t pending further imaging/t esting and official review at B. Psoriasis Psoriasis Disease Active Last [facility] Assessmen Keila - 00:00: t & Plan: Medical 00 [...] kes - athy athy 00:00: Medical 00 [place] Sepsis Sepsis Disease Active [facility] - 00[facility]: Medical 00 Center Alcoholic Alcoholic Disease Active Last [facility] St cirrhosis cirrhosis 10-03 Assesspooja garcia - of liver of liver 00:00: t & Plan: Med ical with with 00 Cirrhosis Center ascites ascites secondary to ETOH/AGUILAR . He will continue follow up with hepatolog y. Ascites Ascites Disease Active Last [facility] due to due [facility] 10[facility] alcoholic 00:00: t & Plan: M edical cirrhosis cirrhosis [address] and leg swelling is controlle d with Lasix 40 mg and Aldactone 100 mg a day; restrict salt to 2 gm per day. Low carb but high protein diet. 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 Family History Family Member Diagnosis Comments Start Date Stop Date Source Natural brother Diabetes [facility] Natural brother Hypertension [facility] Natural father Diabetes [facility] Natural mother Liver disease [facility] Natural sister Cancer [facility] Social History Social Habit Start Date Stop Date Quantity Comments Source History [facility] - Alcohol Std Drinks [facility] History [facility] - Alcohol Binge Medical [facility] Sex Assigned At [facility] Cigarettes smoked 2020-03-13 2020-03[facility]13 [facility] per 00:00:00 00:00:00 [facility] day) - Reported Cigarette 2020-03-13 2020-03-13 [facility] - pack-years 00:00:00 00:00:00 [facility] Tobacco use and 2020-03-13 2020-03-13 Never used [facility] - exposure 00:00:00 00:00:00 [facility] Alcohol intake 2020-03-13 2020-03-13 Current [facility] - 00:00:00 00:00:00 non-drinker of Medical Ce nter alcohol (finding) History [facility] 2018-10-03 2018-10-03 [facility] Frequency 00:00:00 00:00:00 [facility] History of tobacco 2017-10-03 Current smoker [facility] - use 00:00:00 [facility] Alcohol Comment 2010-06-15 2010-06-15 6 packs/day-last [facility]io [facility] 00:00:00 00:00:00 time yesterday Smoking Status Start Date Stop Date Source Former smoker 2020-03-13 00:00:00 2020-03-13 00:00:00 [facility] Current every day 2015-12-15 00:00:00 [facility] smoker Medications Ordered Filled Start Stop Current Ordering Indication Dosage Frequency Signature Comments Components Source Medication Medication Date Date Medication? Clinician (SIG) Name Name pitavastati 2019-05 Yes 2mg QD Take [address] n calcium 0-16 by mouth [facility] - (LIVALO) 2 11:26: daily . Medi jeevan mg Tab 23 Center tablet spironolact 2019-05 Yes 100mg Q.5D Take [address] one 0-16 mg by [facility] - (ALDACTONE) 11:26: mouth 2 Med ical 100 MG 10 (two) Center tablet times daily. rifAXIMin 2019-05 Yes 550mg Q.5D Take [address] 550 mg Tab 0-16 mg by [facility] - 11:26: mouth 2 Medical 10 (two) Center times daily. penicillin 2019-05 Yes 500mg Q.[id number] Take [address] v potassium 0-16 [id number] mg by L ukes - (VEETID) 11:26: 3D mouth 3 Medica l 500 MG 10 (three) Center tablet times daily. furosemide 2019-05 Yes 20mg Q.5D Take [address] (LASIX) 20 0-16 by mouth 2 Ismael es - MG tablet 11:26: (two) Medical 10 times Center daily. thiamine 2019-05 Yes 100mg QD Take [address] (vitamin 0-16 mg by [facility] - B-1) 100 MG 11:26: mouth Medic al tablet 10 daily. [place] omeprazole 2020- No 40mg QD Take [address] (PRILOSEC) 8-03 08-03 by mouth Luke s - 40 MG 09:55: 00:00 daily. Medical capsule 52 :00 Center thiamine 2020- No 100mg QD Take [address] (VITAMIN 8-03 08-03 mg by [facility]ukes - B-1) 100 MG 09:55: 00:00 mouth Medi jeevan tablet 52 :00 daily. [place] clobetasoL Yes 1{appli Q.5D Apply [address] (TEMOVATE) 8-03 cation} applicatio [facility] - 0.05 % 00:00: n Medical cream 00 topically Center 2 (two) times daily. furosemide Yes 80mg Q.5D Take 2 [facility] (LASIX) 40 1-07 tablets [facility] - MG tablet 00:00: (80 mg Medica l 00 total) by Center mouth 2 (two) times daily. clobetasol 2020- No 1{appli Q.5D Apply [address] (TEMOVATE) 7- 08-03 cation} applicatio [facility]ukes - 0.05 % 00:00: 00:00 n Medical cream 00 :00 topically Center 2 (two) times daily. thiamine 2020- No TK [address] 100 mg Tab 11-19- D [facility] - tablet 00:00: 00:00 Medical 00 :00 [place] ALPRAZolam 2020- No TK [address] (XANAX) 1 6-18 08- BID PRF [facility] - MG tablet 00:00: 00:00 ANXIETY Medi jeevan 00 :00 [place] folic acid Yes 1mg QD Take [address] (FOLVITE) 1 6-13 by mouth Luke s - MG tablet 00:00: daily . Medic al 00 [place] lactulose Yes TK [address] (CHRONULAC) 5-04 PO TID [facility] - 10 gram/15 00:00: Medical mL solution 00 [place] triamcinolo 2020- No 1{appli Q.5D Apply [address] ne 3-10 - cation} applicatio [facility]ukes - (KENALOG) 00:00: 00:00 n Medical 0.1 % 00 :00 topically [place] topical 2 (two) cream times daily. metFORMIN [...] daily . Medi jeevan 40 MG 00 [place] tablet hydrOXYzine 2017-05 Yes 50mg Take [address] (ATARAX) 50 1-14 by mouth Luke s - MG tablet 00:00: as needed Med ical 00 . [place] traMADol Yes Recurrent 50mg Take 1 [facility] (ULTRAM) 50 7-19 umbilical tablet by Health mg tablet 00:00: hernia mouth 00 every 6 hours as needed for Pain. Immunizations Ordered Immunization Filled Immunization Date Status Commen ts Source Name Name Pneumococcal 2018-10-28 Completed [facility] Conjugate (Prevnar) 00:00:00 [facility]-Valent Vital Signs Vital Name Observation Time Observation Value Comments Source Systolic blood 2020-03-13 10:38:00 142 mm[Hg] [facility] Diastolic blood 2020-03-13 10:38:00 64 mm[Hg] [facility] Heart rate 2020-03-13 10:38:00 88 /min [facility] Body temperature 2020-03-13 10:38:[address] [facility] Respiratory rate 2020-03-13 10:38:00 24 /min [facility] Body height 2020-03-13 10:38:00 167.6 cm [facility] Body weight 2020-03-13 10:38:00 108.41 kg [facility] BMI 2020-03-13 10:38:00 38.58 kg/m2 [facility] Oxygen saturation in 2020-03-13 10:38:00 100 /min [facility] Arterial blood by Medical Ce nter Pulse oximetry Procedures Procedure Date / Time Performed Performing Clinician Sour e PROTHROMBIN TIME/INR 2020-06-12 12:25:[address] [facility] COMPREHENSIVE METABOLIC 2020-06-12 12:25:00 Ankur Dan [facility] CBC W/PLT COUNT & AUTO 2020-06-12 12:25:00 Ankur Dan [facility] BILIRUBIN, DIRECT 2020-06-12 12:25:[address] [facility] BILIRUBIN, DIRECT 2020-05-19 08:57:00 Veena Swift [facility] PROTHROMBIN TIME/INR 2020-05-19 08:57:00 Veena Swift [facility] I [facility] CBC W/PLT COUNT & AUTO 2020-05-19 08:57:00 Veena Swift [facility] COMPREHENSIVE METABOLIC 2020-05-19 08:57:00 Veena Swift [facility] MR ABDOMEN WITH & WITHOUT 2020-03-13 14:05:00 Yuan Jorgensen [facility] CONTRAST [facility] XR DXA BONE DENSITY STUDY 2020-03-13 12:50:00 Veena Swift [facility] ALPHA FETOPROTEIN (AFP), 2020-03-13 11:59:00 Yuan Jorgensen [facility] TUMOR MARKER [facility] PROTHROMBIN TIME/INR 2020-03-13 11:59:[address] [facility] CBC W/PLT COUNT & AUTO 2020-03-13 11:59:00 Yuan Jorgensen I [facility] MISCELLANEOUS LAB ORDER 2020-03-13 11:58:00 Yuan Jorgensen [facility] BILIRUBIN, DIRECT 2020-03-13 11:58:[address] [facility] COMPREHENSIVE METABOLIC 2020-03-13 11:58:[address] [facility] SARS-COV2/RT-PCR ([facility] & 2020-03-13 11:36:00 Yuan Jorgensen [facility] REF LABS) [facility] REPORT OF PROCEDURE - 2019-12-31 15:30:02 Provider, Default [facility] ENDOSCOPY SCAN Scanning [facility] RHYTHM STRIP - SCAN 2019-12-30 17:20:55 Provider, Default [facility] POCT-GLUCOSE METER 2019-12-30 07:35:[address] [facility] HEPATIC FUNCTION PANEL 2019-12-30 04:33:[address] [facility] S [facility] POCT-GLUCOSE METER 2019-12-29 22:05:[address] [facility] POCT-GLUCOSE METER 2019-12-29 17:12:[address] [facility] POCT-GLUCOSE METER 2019-12-29 13:21:00 Jennifer Florian [facility] UPPER ENDOSCOPY,BANDING 2019-12-29 12:30:[address] [facility] SIGMOIDOSCOPY 2019-12-29 12:30:[address] [facility] POCT-GLUCOSE METER 2019-12-29 11:57:[address] [facility] REPORT OF PROCEDURE - 2019-12-29 11:44:37 Tony Centeno [facility] REPORT OF PROCEDURE - 2019-12-29 11:29:55 Tony Centeno [facility] POCT-GLUCOSE METER 2019-12-29 07:50:[address] [facility] HEPATIC FUNCTION PANEL 2019-12-29 04:55[facility] 2019-12-29 04:55[facility] BASIC [facility]ABOLIC PANEL (7) 2019-12-29 04:55:[address] [facility] CBC W/PLT COUNT & AUTO 2019-12-29 04:55:00 Jennifer Florian CH, I [facility] POCT-GLUCOSE METER 2019-12-28 22:01:[address] [facility] POCT-GLUCOSE METER 2019-12-28 09:20:[address] [facility] HEPATIC FUNCTION PANEL 2019-12-28 05:21:00 Jennifer Florian CH, I [facility] BASIC METABOLIC PANEL (7) 2019-12-28 05:21:[address] [facility] CBC W/PLT COUNT & AUTO 2019-12-28 05:21:00 Jennifer Florian CH, I [facility] (CELLAVISION MANUAL DIFF) 2019-12-28 05:21:[address] [facility] POCT-GLUCOSE METER 2019-12-27 21:54:[address] [facility] POCT-GLUCOSE METER 2019-12-27 16:55:[address] [facility] CBC W/PLT COUNT & AUTO 2019-12-27 11:56:00 Jennifer Florian CH I [facility] POCT-GLUCOSE METER 2019-12-27 11:42:[address] [facility] POCT-GLUCOSE METER 2019-12-27 07:48:[address] [facility] HEPATIC FUNCTION PANEL 2019-12-27 04:00:00 Jennifer Florian [facility] BASIC METABOLIC PANEL (7) 2019-12-27 04:00:[address] [facility] POCT-GLUCOSE METER 2019-12-26 21:36:[address] [facility] BLOOD CULTURE 2019-12-26 18:11:00 Jennifer Florian [facility] BLOOD CULTURE 2019-12-26 18:10:00 Jennifer Florian [facility] POCT-GLUCOSE METER 2019-12-26 17:36:[address] [facility] POCT-GLUCOSE METER 2019-12-26 12:13:[address] [facility] POCT-GLUCOSE METER 2019-12-26 07:38:[address] [facility] BASIC METABOLIC PANEL (7) 2019-12-26 04:24:[address] [facility] PROTHROMBIN TIME/INR 2019-12-26 04:24:[address] [facility] HEPATIC FUNCTION PANEL 2019-12-26 04:24:00 Jennifer Florian [facility] VITAMIN B12 AND FOLATE 2019-12-26 04:24:00 Victor Hugo Sandro [facility] CBC W/PLT COUNT & AUTO 2019-12-26 04:24:00 Jennifer Florian [facility] POCT-GLUCOSE METER 2019-12-25 21:59:[address] [facility] HEMOGLOBIN AND HEMATOCRIT 2019-12-25 15:56:[address] [facility] IRON, TIBC, % SAT. 2019-12-25 12:02:00 Victor Hugo [facility] (WITHOUT FERRITIN) [facility] 2019-12-25 12:02:00 Victor Hugo [facility] COMPREHENSIVE METABOLIC 2019-12-25 04:55:[address] [facility] CBC W/PLT COUNT & AUTO 2019-12-25 04:55:00 Compa [facility] POCT-GLUCOSE METER 2019-12-24 23:27:00 Compa [facility] XR CHEST 1 VIEW 2019-12-24 18:17:00 Compa [facility] PORTABLE[facility]BEDS[facility] Medical Center COMPREHENSIVE METABOLIC 2019-10-07 09:28:00 Ankur Dan [facility] CBC W/PLT COUNT & AUTO 2019-10-07 09:28:00 Ankur Dan [facility] BILIRUBIN, DIRECT 2019-10-07 09:28:[address] [facility] ALPHA FETOPROTEIN (AFP), 2019-10-07 09:28:00 Ankur Dan [facility] TUMOR MARKER [facility] PROTHROMBIN TIME/INR 2019-10-07 09:28:[address] [facility] PLATELET ESTIMATION 2019-10-07 09:28:00 Ankur Dan [facility] ALPHA FETOPROTEIN (AFP), 2019-07-10 00:00:[address] [facility] - TUMOR MARKER [facility] CBC W/PLT COUNT & AUTO 2019-07-10 00:00:00 Nickie Yeh [facility] - DIFFERENTIAL [facility] PROTHROMBIN TIME/INR 2019-07-10 00:00:00 [facility] [place] [place] [facility] COMPREHENSIVE METABOLIC 2019-07-10 00:00:00 [facility] PANEL [facility] PLATELET ESTIMATION 2019-07-10 00:00:[address] [facility] Plan of Care Planned Activity Planned Date Details Comments Source Future Scheduled 2028-06-[address] [facility] - Test 00:00:00 malignant neoplasm of Medica Center colon (procedure) [code = 736610308] Future Scheduled 2021-12-[address] [facility] - Test 00:00:00 (procedure) [code = [facility] 69989557] Future Scheduled 2020-05-[address] [facility] - Test 00:00:00 (12+) [code = [facility] DEPRESSION SCREENING (12+)] Future Scheduled 2020-02-27 IMM Influenza Seasonal H [...] VACCINE [facility] - Test 00:00:00 0-64 YRS (1 of 1 - Medical C enter PPSV23) [code = PNEUMOCOCCAL VACCINE 0-64 YRS (1 of 1 - PPSV23)] Future Scheduled 2006 [facility] Test 00:00:00 malignant neoplasm of colon (procedure) [code = 124406929] Encounters Start End Encounter Admission Attending Care Care Encounter Source Date/Time Date/Time Type Type Clinicians Facility Department ID 2019-09-11 2019-09-11 Telephone Harika NHNUBIA [id number] 00:00:00 00:00:00 Ilan Modi [id number] [place] [id number] Professio [phone] [address] 2019-02-08 2019-02-08 Orders Doctor MONAE [id number] 00:00:00 00:00:00 Only Unassigned, TOY [id number] [facility] [id number] [id number] 2019-01-31 2019-01-31 Orders Doctor MONAE [id number] 00:00:00 00:00:00 Only Unassigned, TOY [id number] [facility] [id number] [id number] [id number] 2019-01-23 2019-01-23 Telephone Brenda Rod [facility] [id number] 00:00:00 00:00:00 Yumiko Modi [id number] [place] [id number] Professio [phone] [address] 2019-01-21 2019-01-21 Office Brenda Rod [facility] [id number] 15:52:08 16:26:09 Visit Yumiko Modi [id number] [place] [id number] Professio [phone] [address] 2019-01-17 2019-01-17 Orders Doctor MONAE [id number] 00:00:00 00:00:00 Only Unassigned, TOY [id number] [facility] [id number] [id number] 2019-01-02 2019-01-02 Orders Doctor LICONA [id number] 00:00:00 00:00:00 Only Unassigned, TOY [id number] [facility] [id number] [id number] 2018-12-28 2018-12-28 Orders Doctor MONAE [id number] 00:00:00 00:00:00 Only UnassignedTOY [id number] [place] [address]686 [id number] [id number] 2016-10-19 2016-10-19 Orders Doctor MONAE 1.2.840.114 [id number] 00:00:00 00:00:00 Only UnassignedTOY [id number] [place] [id number] [id number] [id number] Results Test Description Test Time Test Comments Results Result Comments Source Comprehensive metabolic panel 2020-06-13 07:24:00 Test Item Value Reference Range Interpretation Comme nts Glucose (test code = 134 mg/dL 65-139 Non-fasting ) reference inter holly BUN (test code = 7 mg/dL -20100929) Creatinine (test code = 0.66 mg/dL 0.7-1.25 L For patients >49 years 20130722) of age, the ref erence limitfor Creati nine is approximately 1 3% higher for peopleident ified as -Christelle n. eGFR If NonAfricn Am 103 > OR = 60 (test code = 8222207) mL/min/1.73m2 eGFR If Africn Am (test 119 > OR = 60 code = 8455633) mL/min/1.73m2 BUN/Creatinine Ratio 11 6- 22 (calc) (test code = ) Sodium (test code = 139 mmol/L 135-886 8293156) Potassium, Serum (test 3.6 mmol/L 3.5-5.3 code = 20101014) Chloride (test code = 107 mmol/L 98-692 0520333) Carbon Dioxide, Total 28 mmol/L 20-32 (test code = ) Calcium, Serum (test 8.1 mg/dL 8.6-10.3 L code = 7474805) Protein, Total, Serum 6.2 g/dL 6.1-8.1 (test code = 20101003) Albumin (test code = 2.9 g/dL 3.6-5.1 L ) GLOBULIN (QUEST) (test 3.3 1.9- 3.7 g/dL code = 7851648) (calc) Albumin Globulin Ratio 0.9 1.0- 2.5 (calc) L (test code = 1759-0) Bilirubin, Total (test 1.7 mg/dL 0.2-1.2 H code = 0931096) Alkaline Phosphatase, S 140 U/L 35-144 (test code = 6768-6) AST (SGOT) (test code = 29 U/L 10-35 20101009) ALT (SGPT) (test code = 15 U/L 9-46 ) MADALYN (test code = MADALYN) FASTING:NOFASTING: NO RAC (test code = RAC) Performing Organization Information: Site ID: [facility] Address: [address] [place] [phone] Director: Terrell Romeo Lab Interpretation Abnormal (test code = 40334-3) [facility] [id number] 07:24:00 Test Item Value Reference Range Interpretation Comments Bilirubin, Total (test 1.7 mg/dL 0.2-1.2 H code = 20101005) Bilirubin, Direct (test 0.6 mg/dL < OR = 0.2 H code = 20101017) Bilirubin, Indirect 1.1 0.2- 1.2 mg/dL (test code = 7004432) (calc) MADALYN (test code = MADALYN) FASTING:NOFASTING: NO RAC (test code = RAC) Performing Organization Information: Site ID: [facility]: [facility] Address: [address] [place] [id number] Director: Terrell Romeo Lab Interpretation Abnormal (test code = 62416-2) [facility] count + automated [id number] 07:24:00 Test Item Value Reference Interpretation Comments Range WBC (test code = 4.3 3.8- 10.8 ) Thousand/uL RBC (test code = 3.91 4.20- 5.80 L 789-8) Million/uL Hemoglobin (test 7.6 g/dL 13.2-17.1 L code = ) Hematocrit (test 26.3 % 38.5-50 L code = ) MCV (test code = 67.3 fL 80-100 L ) MCH (test code = 19.4 pg 27-33 L ) MCHC (test code = 28.9 g/dL 32-36 L ) RDW (test code = 17.6 % 11-15 H ) Platelets (test 66 140- 400 L Review of th e code = ) Thousand/uL peripheral s mear revealsdecrease d numbers of platelets. MPV (test code = 7.5-12.5 Due to plat elet or 4273269) RBC variability in size or shapeth e result cannot b e reported accura tely. # Neutros (test 1724 1,500 - 7,800 code = 20191222) cells/uL # Lymphs (test code 1724 850- 3,900 = 731-0) cells/uL # Monos (test code 632 200- 950 = ) cells/uL # Eos (test code = 159 15- 500 711-2) cells/uL # Baso (test code = 60 0- 200 704-7) cells/uL % Neutros (test 40.1 % code = ) % Lymphs (test code 40.1 % = 5213073) % Monos (test code 14.7 % = ) % Eos (test code = 3.7 % 20191217) % Baso (test code = 1.4 % 20191218) Comment(s) (test Polychromas ia 1 code = 20191224) +Microcytosi s 1 +Hypochromasia 1 +Anisocytosis 1 + MADALYN (test code = FASTING:NOFASTING MADALYN) : NO RAC (test code = Performing RAC) Organization Information: Site ID: [facility] Address: [address] [place] [id number] Director: Terrell Romeo Lab Interpretation Abnormal (test code = 51294-3) [facility] Center[facility] time/[id number] 07:24:00 Test Item Value Reference Range Interpretation Comments INR (test code = 1.3 H Reference R mela 6295697) 0.9-1.1Moderate - intensity Warfarin Therap y 2.0-3.0Higher-i n tensity Warfari n Therapy 3.0-4.0 PT (test code = 13.1 9.0- 11.5 sec H For additio nal 4182047) information, please refer [email or web address] i on.[employer]/faq/FAQ 1 04(This link is being provided for informational/e d ucational purposes only.) MADALYN (test code = MADALYN) FASTING:NOFASTING: NO RAC (test code = RAC) Performing Organization Information: Site ID: RGA Name: [facility] Address: [address] [place] [id number] Director: Terrell Romeo Lab Interpretation Abnormal (test code = 00012-9) [facility] [id number] 12:02:00 Test Item Value Reference Range Interpretation Comments SCAN RESULT (test code = 9389991) Miscellaneous lab [id number] 12:02:00Scan ResultQUEST NON-INTERFACED LABCHI [facility] CenterARS[facility] ([facility] Ref [facility])2020-03-13 20:20:00 Test Item Value Reference Range Interpretation Comments SARS-COV2/RT-PCR Negative Not Detected, (test code = Negative, See 98075-4) external report for linked test SARS-COV-2 [facility] KAT PERFORMING LAB (test code = 04575-1) MADALYN (test code = Negative result for this MADALYN) test determines that SARS-CoV-2 RNA was not present in the [...] of the Act. Fact Sheet for Healthcare Providers:https://www.[employer]/sites/default/f isaias/product/documents/F act_Sheet_HC_Providers_L aoh_DTMN-ZtR-1.pdf Fact Sheet for Healthcare Patients:https://www.[employer]/sites/default/fi les/product/documents/Fa ct_Sheet_Patients_Lyra_S ARS-CoV-2.pdf Performing Laboratory:[place] [address] [address]OV[address]/RT-PCR ([facility])2020-03-13 20:20:00 Test Item Value Reference Range Interpretation Comments SARS-COV2/RT-PCR (test Negative Not Detected, Negative, code = 2781038) See external report for linked test SARS-COV-[address] [facility] KAT (test code = 7503143) Negative result for this test determines that SARS-CoV-2 RNA was not present in the specimen above the Limit of Detection (LOD). However, Negative results do not preclude SARS-CoV-2 infection and should not be used as the sole basis for treatment or patient management decisions. Negative results mustbe combined with clinical observations, patient history, and epidemiological information. A false negative result may occur if a specimen is improperly collected, transported or handled. A false negative result should be considered if patient's recent exposures or clinical presentation indicate that COVID-19 (SARS-CoV-2) is likely and diagnostic tests for other causes of illness are negative. Re-testing should be considered in cases of suspected false negatives.The limit of detection for this assay is 800 copies/mL.This SARS CoV-2 test is a real-time RT-PCR test intended for the qualitative detection of nucleic acid from SARS-CoV-2 in a nasopharyngeal swab specimen collected from individuals susp ected of COVID-19 by their healthcare provider.This test has not been Food and Drug [...] is revoked under Section 564(g) of the Act.Fact Sheet for Healthcare Providers:https://www.[employer]/sites/default/files/product/documents/Fact_Shee y_JU_Mwhebohdk_Yuta_WICQ-PmO-3.pdfFact Sheet for Healthcare Patients:https://www.[employer]/sites/default/files/product/ documents/Wjdh_Ccfeo_Iohecfrq_Jokr_AQJP-JlF-8.pdfPerforming Laboratory:[facility], [place] [address]QK, ABDOMEN, WITH 2020-03-13 14:43:00REFERRING : CHERELLE LEROYT Include Abdominal VesselsUnlisted Reason for Exam - Click Yes and EnterReason Below- >YesUnlisted Reason for Exam->listed for liver transplant, screening [facility] : 1955 Sex: MFINAL REPORT MRI of the abdomen dated March 13, 2020 COMPARISON: December 19, 2018 Comment: Multiplanar T1 and T2-weighted images of the abdomen, postcontrast axial and coronal T1 weighted images of the abdomen were obtained. Liver is is cirrhotic in appearance with irregularmargins. No abnormal enhancement or suspicious mass is seen in the liver. Spleen is enlarged measurin g approximately 16.8 x 4.9 x 11.4 cm. The splenic, superior mesenteric, portal, and hepatic veins are patent. Main portal vein measures approximately 1.4 cm. There is recannulization periumbilical vein. Paraesophageal varices is present. Gallbladder is contracted. No gallstone or biliary dilatation isseen. Pancreas and adrenals are unremarkable. Both kidneys are normal in size and functioning. Thereis trace amount of ascites in the abdomen. A duodenal diverticulum is present. IMPRESSION:1. Cirrhosis with splenomegaly and portal hypertension.2. No suspicious hepatic mass.3. Trace ascites. Signed: Brenda De Dios MDReport Verified Date/Time: 03/13/2020 14:43:24 MRI abdomen with and without [id number] 14:43:00Interface, External Ris In - 03/13/2020 2:45 PM CDTFINAL REPORT MRI of the abdomen dated March 13, 2020 COMPARISON: December 19, 2018 Comment: Multiplanar T1 and T2-weighted images of the abdomen, postcontrast axial and coronal T1 weighted images of the abdomen were obtained. Liver is is cirrhotic in appearance with irregular margins. No abnormal enhancement or suspicious mass is seen in the liver. Spleen is enlarged measuring approximately 16.8 x 4.9 x 11.4 cm. The splenic, superior mesenteric, portal, and hepatic veins are patent. Main portal vein measures approximately 1.4 cm. There is recannulization periumbilical vein. Paraesophageal varices is present. Gallbladder is contracted. No gallstone or biliary dilatation is seen. Pancreas and adrenals are unremarkable. Both kidneys are normal in size and functioning. There is trace amount of ascites in the abdomen. A duodenaldiverticulum is present. IMPRESSION:1. Cirrhosis with splenomegaly and portal hypertension.2. No suspicious hepatic mass.3. Trace ascites. Signed: Brenda De Dios Verified Date/Time: 03/13/2020 14:43:24 [facility] CenterAlpha fetoprotein (AFP), tumor [id number] 13:25:00 Test Item Value Reference Range Interpretation Comments Alpha-Fetoprotein (test <2.0 <10.0 ng/mL code = 1834-1) MADALYN (test code = MADALYN) Power Distribution Engineer ID - AAHAMID Lab Interpretation (test Normal code = 41728-8) [facility] CenterALPHA FETOPROTEIN (AFP), TUMOR [id number] 13:25:00 Test Item Value Reference Range Interpretation Comments ALPHA-FETOPROTEIN (BEAKER) (test code < ng/mL <10.0 = 1094) Power Distribution Engineer ID - AAHAMIDCOMPREHENSIVE METABOLIC [id number] 12:54:00 Test Item Value Reference Range Interpretation Comments TOTAL PROTEIN 6.9 gm/dL 6.0-8.3 (BEAKER) (test code = 770) ALBUMIN (BEAKER) 2.7 g/dL 3.5-5.0 L (test code = 1145) ALKALINE PHOSPHATASE 324 U/L 40-150 H (BEAKER) (test code = 346) BILIRUBIN TOTAL 1.5 mg/dL 0.2-1.2 H (BEAKER) (test code = 377) SODIUM (BEAKER) (test 126 meq/L 136-145 L code = 381) POTASSIUM (BEAKER) 4.4 meq/L 3.5-5.1 (test code = 379) CHLORIDE (BEAKER) 96 meq/L 98-107 L (test code = 382) CO2 (BEAKER) (test 26 meq/L 22-29 code = 355) BLOOD UREA NITROGEN 4 mg/dL 7-21 L (BEAKER) (test code = 354) CREATININE (BEAKER) 0.89 mg/dL 0.57-1.25 (test code = 358) GLUCOSE RANDOM 523 mg/dL 70-105 HH (BEAKER) (test code = 652) CALCIUM (BEAKER) 7.9 mg/dL 8.4-10.2 L (test code = 697) AST (SGOT) (BEAKER) 25 U/L 5-34 (test code = 353) ALT (SGPT) (BEAKER) 21 U/L 6-55 (test code = 347) EGFR (BEAKER) (test 86 mL/min/1.73 ESTIMA TETE GFR IS code = 1092) sq m NOT ACCURATE CREATININE CLEARANCE IN PREDICTING GLOMERULAR FILTRATION RATE . ESTIMATED GFR I S NOT APPLICABLE FOR DIALYSIS PATIEN TS. Power Distribution Engineer ID - AAHAMIDXR dxa bone density [id number] 12:46:00Interface, External Ris In - 03/13/2020 12:51 PM CDTFINAL REPORT Bone densitystudy, 03/13/2020 Clinical History: Screening Bone mineral density measurementLumbar spine1.110 gm/nj8Sdqstng neck0.918 gm/cm2 Standard deviation from young adult population (T-score)Lumbar spine-0.9Femoral neck-1.2 Standard deviation for age adjusted population (Z-score)Lumbar spine-1.2Femoral neck-0.7 According to medical literature, this corresponds to no increased risk of an osteoporotic fracture of the lumbar spine as compared to the young adult population. The femoral neck bone mineral density corresponds to 1-2 times increased risk of an osteoporotic fracture as compared to the young adult population. Impression: Osteopenia of the femoral neck. Complete computer analysis will be sent shortly. Diagnostic criteria for osteoporosisBMD: Bone mineral density Normal: BMD measurement less than one standard deviation from young adult populationOsteopenia: BMD measurement between 1 and 2.5 standard deviationsOsteoporosis: BMD measurement greater than 2.5 standard deviationsSevere osteoporosis: Osteoporosis and one or more fragility fractures Signed: Antonio Rivera Verified Date/Time: 03/13/2020 12:46:53 Reading Location: [address] Mammo Reading Room [facility] CenterRAD, BONE DENSITY [id number] 12:46:00REFERRING : CHERELLE MODESTO Reason for Exam:->on liver transplant waiting list [facility] : 1955 Sex: MFINAL REPORT Bone density study, 03/13/2020 Clinical History: Screening Bone mineral density measurementLumbar spine1.110 gm/tv8Xahbyxb neck0.918 gm/cm2 Standard deviation from young adult population (T-score)Lumbar spine-0.9Femoral neck-1.2 Standard deviation for age adjusted population (Z- score)Lumbar spine-1.2Femoral neck-0.7 According to medical literature, this co rresponds to no increased risk of an osteoporotic fracture of the lumbar spine as compared to the young adult population. The femoral neck bone mineral density corresponds to 1-2 times increased risk of an osteoporotic fracture as compared to the young adult population. Impression: Osteopenia of thefemoral neck. Complete computer analysis will be sent shortly. Diagnostic criteria for osteoporosisBMD: Bone mineral density Normal: BMD measurement less than one standard deviation from young adultpopulationOsteopenia: BMD measurement between 1 and 2.5 standard deviationsOsteoporosis: BMD measurement greater than 2.5 standard deviationsSevere osteoporosis: Osteoporosis and one or more fragility f ractures Signed: Antonio Rivera MDReport Verified Date/Time: 03/13/2020 12:46:53 Reading Location: [address] Reading Room BILIRUBIN, [id number] 12:38:00 Test Item Value Reference Range Interpretation Comments BILIRUBIN DIRECT (BEAKER) (test 1.0 mg/dL 0.1-0.5 H code = 706) Power Distribution Engineer ID - AAHAMIDPROTHROMBIN TIME/[id number] 12:23:00 Test Item Value Reference Range Interpretation Comments PROTIME (BEAKER) (test code = 17.1 seconds 11.9-14.2 H 759) INR (BEAKER) (test code = 370) 1.44 <=5.90 Effective 10/24/2018: PT Reference Range ChangeNew: 11.9-14.2 Previous: 11.7- 14.7RECOMMENDED COUMADIN/WARFARIN INR THERAPY RANGESSTANDARD DOSE: 2.0-3.0 Includes: PROPHYLAXIS for venous thrombosis, systemic embolization; TREATMENT for venous thrombosis and/or pulmonary embolus.HIGH RISK: Target INR is2.5-3.5 for patients wiht mechanical heart valves.CBC with platelet count + automated [id number] 12:16:00 Test Item Value Reference Range Interpretation Comments WBC (test code = 6690-2) 6.6 3.5- 10.5 K/L RBC (test code = 789-8) 3.53 4.63- 6.08 M/L L MCHC (test code = 786-4) 29.9 32.3- 36.5 GM/DL L Hematocrit (test code = 4544-3) 28.4 % 40.1-51 L MCV (test code = 787-2) 80.5 fL 79-92.2 MCH (test code = 785-6) 24.1 pg 25.7-32.2 L RDW (test code = 788-0) 16.5 % 11.6-14.4 H Platelets (test code = 777-3) 95 150- 450 K/CU MM L MPV (test code = 61310-4) 10.4 fL 9.4-12.4 nRBC (test code = 413) 0 0- 0 /100 WBC % Neutros (test code = 429) 56 % % Lymphs (test code = 430) 26 % % Monos (test code = 431) 13 % % Eos (test code = 432) 3 % % Baso (test code = 437) 1 % # Neutros (test code = 670) 3.70 1.78- 5.38 K/L # Lymphs (test code = 414) 1.73 1.32- 3.57 K/L # Monos (test code = 415) 0.85 0.30- 0.82 K/L H # Eos (test code = 416) 0.20 0.04- 0.54 K/L # Baso (test code = 417) 0.06 0.01- 0.08 K/L Immature Granulocytes-Relative 1 % 0-1 (test code = 2801) Lab Interpretation (test code = Abnormal 38689-6) [facility] W/PLT COUNT & AUTO [id number] 12:16:00 Test Item Value Reference Range Interpretation Comments WHITE BLOOD CELL COUNT (BEAKER) 6.6 K/ L 3.5-10.5 (test code = 775) RED BLOOD CELL COUNT (BEAKER) 3.53 M/ L 4.63-6.08 L (test code = 761) HEMOGLOBIN (BEAKER) (test code = 8.5 GM/DL 13.7-17.5 L 410) HEMATOCRIT (BEAKER) (test code = 28.4 % 40.1-51.0 L 411) MEAN CORPUSCULAR VOLUME (BEAKER) 80.5 fL 79.0-92.2 (test code = 753) MEAN CORPUSCULAR HEMOGLOBIN 24.1 pg 25.7-32.2 L (BEAKER) (test code = 751) MEAN CORPUSCULAR HEMOGLOBIN CONC 29.9 GM/DL 32.3-36.5 L (BEAKER) (test code = 752) RED CELL DISTRIBUTION WIDTH 16.5 % 11.6-14.4 H (BEAKER) (test code = 412) PLATELET COUNT (BEAKER) (test code 95 K/CU MM 150-450 L = 756) MEAN PLATELET VOLUME (BEAKER) 10.4 fL 9.4-12.4 (test code = 754) NUCLEATED RED BLOOD CELLS (BEAKER) 0 /100 WBC 0-0 (test code = 413) NEUTROPHILS RELATIVE PERCENT 56 % (BEAKER) (test code = 429) LYMPHOCYTES RELATIVE PERCENT 26 % (BEAKER) (test code = 430) MONOCYTES RELATIVE PERCENT 13 % (BEAKER) (test code = 431) EOSINOPHILS RELATIVE PERCENT 3 % (BEAKER) (test code = 432) BASOPHILS RELATIVE PERCENT 1 % (BEAKER) (test code = 437) NEUTROPHILS ABSOLUTE COUNT 3.70 K/ L 1.78-5.38 (BEAKER) (test code = 670) LYMPHOCYTES ABSOLUTE COUNT 1.73 K/ L 1.32-3.57 (BEAKER) (test code = 414) MONOCYTES ABSOLUTE COUNT (BEAKER) 0.85 K/ L 0.30-0.82 H (test code = 415) EOSINOPHILS ABSOLUTE COUNT 0.20 K/ L 0.04-0.54 (BEAKER) (test code = 416) BASOPHILS ABSOLUTE COUNT (BEAKER) 0.06 K/ L 0.01-0.08 (test code = 417) IMMATURE GRANULOCYTES-RELATIVE 1 % 0-1 PERCENT (BEAKER) (test code = 2801) Blood Culture - Routine (Right Venipuncture)2019-12-31 20:00:00 Test Item Value Reference Range Interpretation Comments Result (test code = No growth in 5 days 6463-4) [facility] CenterBLOOD [id number] 20:00:00 Test Item Value Reference Range Interpretation Comments CULTURE (BEAKER) (test No growth in 5 days code = 1095) BLOOD [id number] 20:00:00 Test Item Value Reference Range Interpretation Comments CULTURE (BEAKER) (test No growth in 5 days code = 1095) POC-Glucose [id number] 07:47:00 Test Item Value Reference Range Interpretation Comments POC-Glucose Meter (test 121 mg/dL 70-110 H : TE STED AT [facility] code = 1538) [address] [facility], 770 30: Power Distribution Engineer/Techni zaire ID = [id number] for RADHA MURGUIA Lab Interpretation (test Abnormal code = 39122-2) [facility] CenterPOCT-GLUCOSE [id number] 07:47:00 Test Item Value Reference Range Interpretation Comments POC-GLUCOSE METER 121 mg/dL 70-110 H : TESTED A T [facility] 6720 (BEAKER) (test code = BERTMARYAN R [facility], 1538) [address]: Power Distribution Engineer/Techni zaire ID = [id number] for RADHA GARVEY Hepatic function [id number] 07:24:00 Test Item Value Reference Range Interpretation Comments Protein, Total (test code 5.8 6.0- 8.3 gm/dL L = 2885-2) Albumin (test code = 1.9 g/dL 3.5-5 L 88442-3) Total Bilirubin (test 2.6 mg/dL 0.2-1.2 H code = 1975-2) Bilirubin, Direct (test 1.6 mg/dL 0.1-0.5 H code = 1968-7) Alkaline Phosphatase 142 U/L 40-150 (test code = 6768-6) AST (test code = 1920-8) 57 U/L 5-34 H ALT (test code = 1742-6) 25 U/L 6-55 MADALYN (test code = MADALYN) Power Distribution Engineer ID - KRISHNA Isaac slightly icteric Lab Interpretation (test Abnormal code = 25079-5) [facility] CenterHEPATIC FUNCTION [id number] 07:24:00 Test Item Value Reference Range Interpretation [...] (test code = 25 U/L 6-55 347) Power Distribution Engineer ID - KRISHNA Poncho slightly ictericPOCT-GLUCOSE [id number] 22:18:00 Test Item Value Reference Range Interpretation Comments POC-GLUCOSE METER 143 mg/dL 70-110 H : TESTED A T [facility] 6720 (BEAKER) (test code = NICOLE AL[place], 1538) [address]: Power Distribution Engineer/Techni zaire ID = [id number] for CA NAINA, ANU POCT-GLUCOSE [id number] 17:24:00 Test Item Value Reference Range Interpretation Comments POC-GLUCOSE METER 214 mg/dL 70-110 H : TESTED A T [facility] 6720 (BEAKER) (test code = [facility], 1538) [address]: Power Distribution Engineer/Techni zaire ID = [id number] for WADE MCMULLEN POCT-GLUCOSE [id number] 13:32:00 Test Item Value Reference Range Interpretation Comments POC-GLUCOSE METER 127 mg/dL 70-110 H : TESTED A T [facility] 6720 (BEAKER) (test code = [facility], 1538) 507[address]: Power Distribution Engineer/Techni zaire ID = [id number] for WADE MCMULLEN POCT-GLUCOSE [id number] 12:08:00 Test Item Value Reference Range Interpretation Comments POC-GLUCOSE METER 124 mg/dL 70-110 H : TESTED A T [facility] 6720 (BEAKER) (test code = [facility], 1538) 512[address]: Power Distribution Engineer/Techni zaire ID = [id number] for CHARI RAZO POCT-GLUCOSE [id number] 08:16:00 Test Item Value Reference Range Interpretation Comments POC-GLUCOSE METER 117 mg/dL 70-110 H : TESTED A T [facility] 6720 (BEAKER) (test code = [facility], 1538) 288[address]: Power Distribution Engineer/Techni zaire ID = [id number] for WADE MCMULLEN Basic Metabolic [id number] 06:13:00 Test Item Value Reference Range Interpretation [...] (test code = 7.2 mg/dL 8.4-10.2 L 25750-8) EGFR (test code = 118 mL/min/1.73 [place] [address]-9) NOT ACCURATE CREATININE CLEARANCE IN PREDICTING GLOMERULAR FILTRATION RATE . ESTIMATED GFR I S NOT APPLICABLE FOR DIALYSIS PATIENTS. MADALYN (test code = MADALYN) Power Distribution Engineer ID Andrea Mcintyreimen slightly icteric Lab Interpretation Abnormal (test code = 27511-5) [facility] CenterBASI METABOLIC [id number] 06:13:00 Test Item Value Reference Range Interpretation [...] S NOT APPLICABLE FOR DIALYSIS PATIEN TS. Power Distribution Engineer ID Andrea Mcintyreimen slightly ictericHEPATIC FUNCTION [id number] 06:13:00 Test Item Value Reference Range Interpretation [...] (test code = 27 U/L 6-55 347) Power Distribution Engineer LEOPOLDO Isaac slightly ictericPROTHROMBIN TIME/[id number] 05:46:00 Test Item Value Reference Range Interpretation [...] mechanical heart valves.CBC W/PLT COUNT & AUTO [id number] 05:21:00 Test Item Value Reference Range Interpretation [...] PERCENT (BEAKER) (test code = 2801) POCT-GLUCOSE [id number] 22:38:00 Test Item Value Reference Range Interpretation Comments POC-GLUCOSE METER 181 mg/dL 70-110 H : TESTED A T [facility] 6720 (BEAKER) (test code = NICOLE Arita [facility], 1538) [address]: Power Distribution Engineer/Techni zaire ID = [id number] for RON BLANCO Manual [id number] 15:15:00 Test Item Value Reference Range Interpretation Comments % Neutros (test code = 81 % 281) % Lymphs (test code = 3 % 2817) % Monos (test code = 10 % 2818) % Eos (test code = 2819) 2 [...] Cells (test 1+ few code = 481) [place] Cells (test code = 1+ few 474) Artifact (test code = Present 3432) Platelet Conc (test code Decreased = 3438) MADALYN (test code = MADALYN) Power Distribution Engineer ID - Nima Villafuerte comments: Slide comments: Lab Interpretation (test Abnormal code = 07504-2) [facility](CELLAVISION MANUAL DIFF)2019-12-28 15:15:00 Test Item [...] CONCENTRATION Decreased (CELLAVISION)(BEAKER) (test code = 3438) Power Distribution Engineer ID - Nima Villafuerte comments: Slide comments:CBC W/PLT COUNT & AUTO [id number] 15:11:00 Test Item Value Reference Range Interpretation [...] PERCENT (BEAKER) (test code = 2801) POCT-GLUCOSE [id number] 10:15:00 Test Item Value Reference Range Interpretation Comments POC-GLUCOSE METER 178 mg/dL 70-110 H : TESTED Lana Davis [facility] 6720 (BEAKER) (test code = [place], 1538) [address]: Power Distribution Engineer/Techni zaire ID = [id number] for DELPHINE JUAREZ POCT-GLUCOSE [id number] 09:08:00 Test Item Value Reference Range Interpretation Comments POC-GLUCOSE METER 167 mg/dL 70-110 H : [facility] (BEAKER[facility] (test code = NICOLE Arita [facility], 1538) [address]: Power Distribution Engineer/Techni zaire ID = [id number] for WONG COWAN BASIC METABOLIC [id number] 07:06:00 Test Item Value Reference Range Interpretation [...] S NOT APPLICABLE FOR DIALYSIS PATIEN TS. Power Distribution Engineer ID - PIAYA LSpecimen slightly ictericHEPATIC FUNCTION [id number] 07:06:00 Test Item Value Reference Range Interpretation [...] (test code = 20 U/L 6-55 347) Power Distribution Engineer ID - KRISHNA Isaac slightly ictericPOCT-GLUCOSE [id number] 22:05:00 Test Item Value Reference Range Interpretation Comments POC-GLUCOSE METER 216 mg/dL 70-110 H : TESTED A T [facility] 6720 (BEAKER) (test code = [facility], 1538) 632[address]: Power Distribution Engineer/Techni zaire ID = [id number] for DAVID TALBERT POCT-GLUCOSE [id number] 17:07:00 Test Item Value Reference Range Interpretation Comments POC-GLUCOSE METER 244 mg/dL 70-110 H : TESTED A T [facility] 6720 (BEAKER) (test code = [facility], 1538) 10519: Power Distribution Engineer/Techni zaire ID = [id number] for IB RAHIM, SERKALEM CBC W/PLT COUNT & AUTO [id number] 12:15:00 Test Item Value Reference Range Interpretation [...] PERCENT (BEAKER) (test code = 2801) POCT-GLUCOSE [id number] 11:54:00 Test Item Value Reference Range Interpretation Comments POC-GLUCOSE METER 226 mg/dL 70-110 H : TESTED A T [facility] 6720 (BEAKER) (test code = [place], 1538) 12[address]: Power Distribution Engineer/Techni zaire ID = [id number] for IB CHUCHO TOLBERT BASIC METABOLIC [id number] 08:18:00 Test Item Value Reference Range Interpretation [...] S NOT APPLICABLE FOR DIALYSIS PATIEN TS. Power Distribution Engineer ID - NTPPOCT-GLUCOSE [id number] 08:07:00 Test Item Value Reference Range Interpretation Comments POC-GLUCOSE METER 166 mg/dL 70-110 H : TESTED A T [facility] 6720 (BEAKER) (test code = [facility], 1538) 78709: Power Distribution Engineer/Techni zaire ID = [id number] for CHUCHO SALDIVAR HEPATIC FUNCTION [id number] 05:05:00 Test Item Value Reference Range Interpretation [...] (test code = 19 U/L 6-55 347) Power Distribution Engineer ID - EDASISpecimen slightly ictericPOCT-GLUCOSE [id number] 17:47:00 Test Item Value Reference Range Interpretation Comments POC-GLUCOSE METER 222 mg/dL 70-110 H : TESTED A T [facility] 6720 (BEAKER) (test code = [facility] [employer] [facility], 1538) 66804: Power Distribution Engineer/Techni zaire ID = [id number] for ANEESH BRIBRAXTON POCT-GLUCOSE [id number] 12:25:00 Test Item Value Reference Range Interpretation Comments POC-GLUCOSE METER 311 mg/dL 70-110 H : TESTED A T [facility] 6720 (BEAKER) (test code = NICOLE [place]rita [place], 1538) 102[address]: Power Distribution Engineer/Techni zaire ID = [id number] for BRAXTON MORAN POCT-GLUCOSE [id number] 07:49:00 Test Item Value Reference Range Interpretation Comments POC-GLUCOSE METER 190 mg/dL 70-110 H : TESTED A T [facility] 6720 (BEAKER) (test code = NICOLE Arita [place], 1538) 806[address]: Power Distribution Engineer/Techni zaire ID = [id number] for BRAXTON MORAN Vitamin B12 and [id number] 06:11:00 Test Item Value Reference Range Interpretation Comments Vitamin B12 (test code = 873 pg/mL 213-816 H 2132-9) Folate (test code = 12.30 ng/mL >=7.00 2284-8) MADALYN (test code = MADALYN) Power Distribution Engineer ID - EDASI Lab Interpretation (test Abnormal code = 62608-1) [facility] CenterVITAMIN B12 AND [id number] 06:11:00 Test Item Value Reference Range Interpretation Comments VITAMIN B12 (BEAKER) (test code = 873 pg/mL 213-816 H 774) FOLATE (BEAKER) (test code = 362) 12.30 ng/mL >=7.00 Power Distribution Engineer ID - EDASIBASIC METABOLIC [id number] 05:21:00 Test Item Value Reference Range Interpretation [...] S NOT APPLICABLE FOR DIALYSIS PATIEN TS. Power Distribution Engineer ID - EDASIHEPATIC FUNCTION [id number] 05:21:00 Test Item Value Reference Range Interpretation [...] (test code = 19 U/L 6-55 347) Power Distribution Engineer ID - EDASICBC W/PLT COUNT & AUTO [id number] 05:12:00 Test Item Value Reference Range Interpretation [...] PERCENT (BEAKER) (test code = 2801) PROTHROMBIN TIME/[id number] 04:56:00 Test Item Value Reference Range Interpretation [...] is2.5-3.5 for patients wiht mechanical heart valves.POCT-GLUCOSE [id number] 22:11:00 Test Item Value Reference Range Interpretation Comments POC-GLUCOSE METER 195 mg/dL 70-110 H : TESTED A T [facility] 6720 (BEAKER) (test code = NICOLE ALAN [place], 1538) [address]: Power Distribution Engineer/Techni zaire ID = [id number] for WONG COWAN Hemoglobin and [id number] 16:15:00 Test Item Value Reference Range Interpretation Comments Hemoglobin (test code = 8.6 13.7- 17.5 GM/DL L 786-4) Hematocrit (test code = 30.2 % 40.1-51 L 4544-3) MADALYN (test code = MADALYN) Power Distribution Engineer ID - [id number] Lab Interpretation (test Abnormal code = 89671-9) [facility] AND [id number] 16:15:00 Test Item Value Reference Range Interpretation Comments HEMOGLOBIN (BEAKER) (test code = 8.6 GM/DL 13.7-17.5 L 410) HEMATOCRIT (BEAKER) (test code = 30.2 % 40.1-51.0 L 411) Power Distribution Engineer ID - [id number] 13:02:00 Test Item Value Reference Range Interpretation Comments Ferritin (test code = 73.10 ng/mL 5-275 2276-4) MADALYN (test code = MADALYN) Power Distribution Engineer ID - EDASI Lab Interpretation (test Normal code = 68983-1) [facility]2020-[facility] 13:02:00 Test Item Value Reference Range Interpretation Comments FERRITIN (BEAKER) (test code = 73.10 ng/mL 5.00-275.00 361) Power Distribution Engineer ID - EDASIIron, TIBC, % sat. (without ferritin)2019-12-25 12:42:00 Test Item Value Reference Range Interpretation Comments Iron (test code = 2498-4) 29.0 ug/dL 40-160 L TIBC (test code = 2500-7) 151 ug/dL 250-450 L Iron % Saturation (test 19 % 20-55 L code = 2502-3) MADALYN (test code = MADALYN) Power Distribution Engineer ID - EDASI Lab Interpretation (test Abnormal code = 71154-8) [facility], TIBC, % SAT. (WITHOUT FERRITIN)2019-12-25 12:42:00 Test Item Value Reference Range Interpretation Comments IRON (BEAKER) (test code = 547) 29.0 ug/dL 40.0-160.0 L TOTAL IRON BINDING CAPACITY 151 ug/dL 250-450 L (BEAKER) (test code = 769) IRON % SATURATION (2) (BEAKER) 19 % 20-55 L (test code = 2590) Power Distribution Engineer ID - EDASICOMPREHENSIVE METABOLIC [id number] 06:44:00 Test Item Value Reference Range Interpretation [...] S NOT APPLICABLE FOR DIALYSIS PATIEN TS. Power Distribution Engineer ID - EDASICBC W/PLT COUNT & AUTO [id number] 05:55:00 Test Item Value Reference Range Interpretation [...] % 0-1 PERCENT (BEAKER) (test code = 2808) POCT-GLUCOSE [id number] 23:39:00 Test Item Value Reference Range Interpretation Comments POC-GLUCOSE METER 307 mg/dL 70-110 H : TESTED A T [facility] 6720 (BEAKER) (test code = N[place], 1538) [address]: Power Distribution Engineer/Techni zaire ID = [id number] for Erendira Talbert (contrac t) RAD, CHEST, 1 VIEW, NON [id number] 18:52:00REFERRING MD: CHERELLE SALVADOR Reason for exam:->sobShould [...] MDReport Verified Date/Time: 12/24/2019 18:52:34 Reading Location: [address] Consult Reading Room XR chest 1 view portable / [id number] 18:52:00Interface, External Ris In - 12/24/2019 6:54 [...] [place] MDReport VerifiedDate/Time: 12/24/2019 18:52:34 Reading Location: [facility] C013W Consult Reading Room [facility] CenterPLATELET [id number] 10:17:00 Test Item Value Reference Range Interpretation Comments Platelet Estimate (test DECREASED ADEQUATE A code = 68501-7) MADALYN (test code = MADALYN) FASTING:YESFASTING: YES RAC (test code = RAC) Performing Organization Information: Site ID: RGA Name: [facility] Address: [address] [place] [id number] Director: Terrell Romeo Lab Interpretation (test Abnormal code = 63938-9) [facility] CenterBAS[facility]OLIC [id number] 09:29:00 Test Item Value Reference Range Interpretation [...] Specimen slightly ictericCBC W/PLT COUNT & AUTO [id number] 08:54:00 Test Item Value Reference Range Interpretation [...] 0-1 PERCENT (BEAKER) (test code = 2801) HEPATITIS C [id number] 12:25:00 Test Item Value Reference Range Interpretation Comments HEPATITIS C ANTIBODY (BEAKER) (test Reactive Nonreactive A code = 367) ALPHA FETOPROTEIN (AFP), TUMOR [id number] 15:45:00 Test Item Value Reference Range Interpretation Comments ALPHA-FETOPROTEIN (BEAKER) (test 2.7 ng/mL <10.0 code = 1094) BASIC METABOLIC [id number] 15:36:00 Test Item Value Reference Range Interpretation [...] DIALYSIS PATIEN TS. Specimen slightly ictericHEPATIC FUNCTION [id number] 15:35:00 Test Item Value Reference Range Interpretation [...] 21 U/L 6-55 347) Specimen slightly ictericPROTHROMBIN TIME/[id number] 15:00:00 Test Item Value Reference Range Interpretation [...] mechanical heart valves.CBC W/PLT COUNT & AUTO [id number] 14:53:00 Test Item Value Reference Range Interpretation [...] code = 2801) ALPHA FETOPROTEIN (AFP), TUMOR [id number] 14:10:00 Test Item Value Reference Range Interpretation Comments ALPHA-FETOPROTEIN (BEAKER) (test 2.7 ng/mL <10.0 code = 1094) BASIC METABOLIC [id number] 13:52:00 Test Item Value Reference Range Interpretation [...] DIALYSIS PATIEN TS. Specimen slightly ictericHEPATIC FUNCTION [id number] 13:52:00 Test Item Value Reference Range Interpretation [...] 24 U/L 6-55 347) Specimen slightly ictericPROTHROMBIN TIME/[id number] 13:49:00 Test Item Value Reference Range Interpretation [...] mechanical heart valves.CBC W/PLT COUNT & AUTO [id number] 13:35:00 Test Item Value Reference Range Interpretation [...] 0-1 PERCENT (BEAKER) (test code = 2801) [id number] 14:59:00 Test Item Value Reference Range Interpretation Comments T4 TOTAL (BEAKER) (test code = 895) 5.7 ug/dL 4.9-11.7 [id number] 13:20:00 Test Item Value Reference Range Interpretation Comments T3 TOTAL (BEAKER) (test code = 656) 113 ng/dL 48-159 CYTOMEGALOVIRUS ANTIBODY, [id number] 11:11:00 Test Item Value Reference Range Interpretation Comments CYTOMEGALOVIRUS, IGG (BEAKER) Positive Negative, Equivocal A (test code = 3429) CMV IgG Result Interpretation: </= 0.8 Al Negative 0.9-1.0 Al Equivocal >/=1.1 Al PositiveCYTOMEGALOVIRUS ANTIBODY, [id number] 11:11:00 Test Item Value Reference Range Interpretation Comments CYTOMEGALOVIRUS IGM ANTIBODY Negative Negative, Equivocal (BEAKER) (test code = 3437) CMV IgM Result Interpretation: </= 0.8 Al Negative 0.9-1.0 Al Equivocal >/= 1.1 Al PositiveEBV ANTIBODY, [id number] 11:08:00 Test Item Value Reference Range Interpretation Comments EDENILSON TAVERAS VIRAL CAPSID Positive Negative, Equivocal A ANTIGEN IGG (BEAKER) (test code = 3415) Edenilson Taveras Viral Capsid Antigen IgG Result Interpretation: </= 0.8 Al Negative 0.9-1.0 Al Equivocal >/= 1.1 Al PositiveEBV ANTIBODY, IGM 2018-12-21 11:08:00 Test Item Value Reference Range Interpretation Comments EDENILSON TAVERAS VIRAL CAPSID Negative Negative, Equivocal ANTIGEN IGM (BEAKER) (test code = 3418) Edenilson Taveras Viral Capsid Antigen IgM Result Interpretation: </= 0.8 Al Negative 0.9-1.0 Al Equivocal >/= 1.1 Al PositiveVARICELLA ZOSTER ANTIBODY, [id number] 11:08:00 Test Item Value Reference Range Interpretation Comments VARICELLA ZOSTER IGG (AL) (BEAKER) > (test code = 3197) VARICELLA ZOSTER RESULT INTERPRETATIONS: <=0.8 Al Nonreactive: Presumed non-immune to VZV 0.9-1.0 Al Equivocal >=1.1 Al Reactive: Presumed immune to ABZUVUSV-6-[id number] 13:11:00 Test Item Value Reference Range Interpretation Comments ALPHA-1 ANTITRYPSIN (BEAKER) 155.30 mg/dL 90.00-200.00 (test code = 502) HEMOGLOBIN [id number] 13:08:00 Test Item Value Reference Range Interpretation Comments HEMOGLOBIN A1C (BEAKER) (test code = 6.4 % 4.3-6.1 H 368) HEPATITIS A ANTIBODY, [id number] 12:51:00 Test Item Value Reference Range Interpretation Comments HEPATITIS A IGG ANTIBODY (BEAKER) Reactive Nonreactive A (test code = 2797) HEPATITIS C [id number] 12:51:00 Test Item Value Reference Range Interpretation Comments HEPATITIS C ANTIBODY (BEAKER) (test Reactive Nonreactive A code = 367) [id number] 12:48:00 Test Item Value Reference Range Interpretation Comments PROSTATE SPECIFIC ANTIGEN (BEAKER) 0.4 ng/mL 0.0-4.0 (test code = 844) HIV-1 ANTIGEN WITH HIV-1/2 [id number] 12:48:00 Test Item Value Reference Range Interpretation Comments HIV-1 ANTIGEN WITH HIV 1\T\2 Nonreactive Nonreactive ANTIBODY (2) (BEAKER) (test code = 2586) VITAMIN D, [id number] 12:46:00 Test Item Value Reference Range Interpretation Comments VITAMIN D 25-OH (BEAKER) (test code 7.7 ng/mL 6.6-49.9 = 2764) Effective 03/08/2017: Reference Range ChangeNew: 6.6-49.9 ng/mL Previous: 13.0-47.8 ng/mLRecommended Vitamin D Target Range: 30.0-40.0 ng/mLURINALYSIS W/ [id number] 11:55:00 Test Item Value Reference Range Interpretation [...] /LPF SOURCE(BEAKER) (test code = 2795) CRYPTOCOCCAL [id number] 11:10:00 Test Item Value Reference Range Interpretation Comments CRYPTOCOCCAL ANTIGEN, SERUM Negative Negative, Interference (BEAKER) (test code = 1828) [id number] 10:59:00 Test Item Value Reference Range Interpretation Comments THYROID STIMULATING HORMONE 2.10 uIU/mL 0.35-4.94 (BEAKER) (test code = 772) [id number] 10:59:00 Test Item Value Reference Range Interpretation Comments FERRITIN (BEAKER) (test code = 361) 69 ng/mL 5-275 [id number] 10:51:00 Test Item Value Reference Range Interpretation Comments RPR SCREEN (BEAKER) (test code = Nonreactive Nonreactive 420) [id number] 10:49:00 Test Item Value Reference Range Interpretation Comments TRANSFERRIN (BEAKER) (test code = 197 mg/dL 174-382 541) Specimen slightly [id number] 10:45:00 Test Item Value Reference Range Interpretation Comments MAGNESIUM (BEAKER) (test code = 1.5 mg/dL 1.6-2.6 L 627) [id number] 10:45:00 Test Item Value Reference Range Interpretation Comments PHOSPHORUS (BEAKER) (test code = 3.6 mg/dL 2.3-4.7 604) URIC [id number] 10:45:00 Test Item Value Reference Range Interpretation Comments URIC ACID (BEAKER) (test code = 4.8 mg/dL 2.6-7.2 773) Specimen slightly ictericCOMPREHENSIVE METABOLIC [id number] 10:45:00 Test Item Value Reference Range Interpretation [...] FOR DIALYSIS PATIEN TS. Specimen slightly ictericLIPID [id number] 10:45:00 Test Item Value Reference Range Interpretation [...] 160-189 Very High >=190 Specimen slightly ictericBILIRUBIN, [id number] 10:45:00 Test Item Value Reference Range Interpretation Comments BILIRUBIN DIRECT (BEAKER) (test 1.6 mg/dL 0.1-0.5 H code = 706) GAMMA GLUTAMYL TRANSFERASE (GGT)2018-12-20 10:45:00 Test Item Value Reference Range Interpretation Comments GAMMA GLUTAMYL TRANSFERASE (BEAKER) 33 U/L 9-64 (test code = 364) Specimen slightly [id number] 10:42:00 Test Item Value Reference Range Interpretation Comments PARTIAL THROMBOPLASTIN TIME 37.9 seconds 22.5-36.0 H (BEAKER) (test code = 760) PROTHROMBIN TIME/[id number] 10:36:00 Test Item Value Reference Range Interpretation [...] INR is2.5-3.5 for patients wiht mechanical heart valves.[id number] 10:36:00 Test Item Value Reference Range Interpretation Comments ETHANOL (BEAKER) (test code = 400) < mg/dL <=10 [id number] 10:36:00 Test Item Value Reference Range Interpretation Comments FIBRINOGEN LEVEL (BEAKER) (test 207 mg/dl 225-434 L code = 658) BLOOD GAS, [id number] 10:35:00 Test Item Value Reference Range Interpretation [...] 21.0 % CBC W/PLT COUNT & AUTO [id number] 10:25:00 Test Item Value Reference Range Interpretation [...] PERCENT (BEAKER) (test code = 2801) CALCIUM, [id number] 10:20:00 Test Item Value Reference Range Interpretation Comments CALCIUM IONIZED (BEAKER) (test 1.05 mmol/L 1.12-1.27 L code = 698) PH, BLOOD (BEAKER) (test code = 7.41 1810) RAD, MANDIBLE, MIN 4 [id number] 16:56:00REFERRJB GOMEZ: CHERELLE SALVADOR Reason for Exam:->pretransplant liver evaluationFINAL REPORT TECHNIQUE: Minimum four views of the mandible. INDICATION: pretransplant liver evaluation. COMPARISON: None. FINDINGS:No fracture or dislocation.No periapical lucencies.Caries of a maxillary molar, side indeterminate.Mild degenerative disc changes at C4-C5, C5-C6, and C6-C7. IMPRESSION: No periapical lucency. Caries of a maxillary molar, side indeterminate. Signed:aTwanda Alvarez MDReport Verified Date/Time: 12/19/2018 16:56:31 Reading Location: [address] Radiology Reading Room RAD, CHEST, 2 [id number] 15:51:00REFJENISE GOMEZ: CHERELLE SALVADOR Reason for Exam:->pretransplant liver evaluationFINAL REPORT Chest, PA and lateral. History: Transplant evaluation. Comparison: 10/28/2018. Discussion: The cardiomediastinal silhouette and pulmonary vasculature are within normal limits. The lungs are clear without evidence of consolidation or effusion. There are no acute osseous abnormalities. The soft tissues are unremarkable. IMPRESSION: No acute cardiopulmonary abnormality. Signed: Farzaneh Walker MDReport Verified Date/Time: 12/19/2018 15:51:17 [facility], ABDOMEN, [id number] 14:51:00 REFERRING MD: CHERELLE FRANCISCO REPORT TECHNIQUE: MRI of the abdomen WITHOUT [...] splenomegaly, and large esophageal varices. Signed: Tawanda Alvarez Verified Date/Time: 12/19/2018 14:51:24 Reading Location: [address] Radiology Reading Room [facility] 2018-12-06 11:12:00 Test Item Value Reference Range Interpretation Comments ETHANOL (BEAKER) (test code = 400) < mg/dL <=10 BASIC METABOLIC [id number] 10:56:00 Test Item Value Reference Range Interpretation [...] DIALYSIS PATIEN TS. Specimen moderately ictericHEPATIC FUNCTION [id number] 10:56:00 Test Item Value Reference Range Interpretation [...] 27 U/L 6-55 347) Specimen moderately ictericPROTHROMBIN TIME/[id number] 10:40:00 Test Item Value Reference Range Interpretation [...] mechanical heart valves.CBC W/PLT COUNT & AUTO [id number] 10:38:00 Test Item Value Reference Range Interpretation [...] PERCENT (BEAKER) (test code = 2801) BLOOD [id number] 08:00:00 Test Item Value Reference Range Interpretation Comments CULTURE (BEAKER) (test No growth in 5 days code = 1095) BLOOD [id number] 08:00:00 Test Item Value Reference Range Interpretation Comments CULTURE (BEAKER) (test No growth in 5 days code = 1095) BODY FLUID CULTURE + GRAM [id number] 12:20:00 Test Item Value Reference Range Interpretation Comments CULTURE (BEAKER) (test code No growth = 1095) GRAM STAIN RESULT (BEAKER) 1+ WBCs (test code = 1123) GRAM STAIN RESULT (BEAKER) No organisms seen (test code = 80322) HEPATITIS C PCR, [id number] 08:32:00 Test Item Value Reference Range Interpretation Comments HCV RESULT COMPONENT HCV RNA not detected HCV RNA not detected (BEAKER) (test code = 2699) This test uses a Real-Time Polymerase Chain Reaction (RT-PCR) methodology and was performed using [employer] Ampliprep/KHOA TaqMan HCV test kit version 2.0 ([employer]).Reportable range for this assay is 15 - 100,000,000 IU per mL (1.18 - 8.00 Log IU/mL).POCT-GLUCOSE [id number] 08:09:00 Test Item Value Reference Range Interpretation Comments POC-GLUCOSE METER 117 mg/dL 70-[address] [facility] 6720 (BEAKER) (test code = NICOLE TRUJILLO 1538) [address] CALCIUM, [id number] 05:54:00 Test Item Value Reference Range Interpretation Comments CALCIUM IONIZED (BEAKER) (test 1.01 mmol/L 1.12-1.27 L code = 698) PH, BLOOD (BEAKER) (test code = 7.45 1810) COMPREHENSIVE METABOLIC [id number] 05:07:00 Test Item Value Reference Range Interpretation [...] APPLICABLE FOR DIALYSIS PATIEN TS. Specimen slightly [id number] 05:06:00 Test Item Value Reference Range Interpretation Comments PHOSPHORUS (BEAKER) (test code = 3.3 mg/dL 2.3-4.7 604) [id number] 05:06:00 Test Item Value Reference Range Interpretation Comments MAGNESIUM (BEAKER) (test code = 1.5 mg/dL 1.6-2.6 L 627) CBC W/PLT COUNT & AUTO [id number] 04:43:00 Test Item Value Reference Range Interpretation [...] 417) IMMATURE GRANULOCYTES-RELATIVE 1 % 0-1 PERCENT (AKER) (test code = 2801) POCT-GLUCOSE [id number] 21:35:00 Test Item Value Reference Range Interpretation Comments POC-GLUCOSE METER 154 mg/dL 70-110 H TESTED AT [place] [address] ([facility]) (test code = [facility] 1538) [address] POCT-GLUCOSE [id number] 17:21:00 Test Item Value Reference Range Interpretation Comments POC-GLUCOSE METER 138 mg/dL 70-110 H TESTED AT [place] [address] ([facility]) (test code = [facility] 1538) [address] POCT-GLUCOSE [id number] 13:27:00 Test Item Value Reference Range Interpretation Comments POC-GLUCOSE METER 166 mg/dL 70-110 H TESTED AT [place] [address] ([facility]) (test code = [facility] 1538) [address] CBC W/PLT COUNT & AUTO [id number] 12:00:00 Test Item Value Reference Range Interpretation [...] 3438) Received comment: User comments: Slide comments:POCT-GLUCOSE [id number] 11:52:00 Test Item Value Reference Range Interpretation Comments POC-GLUCOSE METER 180 mg/dL 70-[address] [facility] 6720 (BEAKER) (test code = NICOLE TRUJILLO 1538) [address] POCT-GLUCOSE [id number] 08:09:00 Test Item Value Reference Range Interpretation Comments POC-GLUCOSE METER 115 mg/dL 70-[address] [facility] 6720 (BEAKER) (test code = NICOLE Arita [facility] 1538) [address] COMPREHENSIVE METABOLIC [id number] 05:59:00 Test Item Value Reference Range Interpretation [...] APPLICABLE FOR DIALYSIS PATIEN TS. Specimen slightly [id number] 05:57:00 Test Item Value Reference Range Interpretation Comments MAGNESIUM (BEAKER) (test code = 1.6 mg/dL 1.6-2.6 627) POCT-GLUCOSE [id number] 22:30:00 Test Item Value Reference Range Interpretation Comments POC-GLUCOSE METER 186 mg/dL 70-[address] [facility] 6720 ([facility]) (test code = NICOLE [place]rit[place] 1538) [address] POCT-GLUCOSE [id number] 18:33:00 Test Item Value Reference Range Interpretation Comments POC-GLUCOSE METER 117 mg/dL 70-[address] [facility] 6720 ([facility]) (test code = NICOLE Arita [place] 1538) [address] U/S, [id number] 17:34:00REFERRING MD: CHERELLE SALVADOR Please give 25g [...] 2% lidocaine anesthesia was administered. A 5 Icelandic catheter was advanced into the peritoneal cavity and 1300 cc of addison fluid was removed. The catheter was removed without immediate complication. Samples left with interstitial sent to the lab for analysis. IMPRESSION:Uncomplicated ultrasound-guided paracentesis with 1300 cc fluid removed. Signed: Mauricio Cullen MDReport Verified Date/Time: 10/29/2018 17:34:00 Reading Location: [address] Ultrasound Reading Room VANCOMYCIN LEVEL, TROUGH 2018-10-29 17:22:00 Test Item Value Reference Range Interpretation Comments VANCOMYCIN TROUGH (BEAKER) (test 7.3 ug/mL 10.0-20.0 L code = 522) CBC W/PLT COUNT & AUTO [id number] 15:00:00 Test Item Value Reference Range Interpretation [...] = 2801) BODY FLUID CELL COUNT WITH [id number] 13:45:00 Test Item Value Reference Range Interpretation [...] Tube (test code = 2873) RESPIRATORY PANEL [id number] 12:27:00 Test Item Value Reference Range Interpretation [...] sample was tested at the [facility]ostics Laboratory using the Particle Code Respiratory Panel. It is FDA cleared and has been verified and approved by the [facility] for clinical use on nasopharyngeal swab specimens.The performance of the FilmArrayRP has not been established in individuals who received influenza vaccine. Recent administration ofa nasal influenza vaccine may cause false positive results for Influenza A and/orInfluenza B.POCT-GLUCOSE [id number] 12:16:00 Test Item Value Reference Range Interpretation Comments POC-GLUCOSE METER 196 mg/dL 70-[address] [facility] 6720 ([facility]) (test code = NICOLE Arita [facility] 1538) [address] RESPIRATORY PANEL [id number] 10:59:00 Test Item Value Reference Range Interpretation Comments HUMAN METAPNEUMOVIRUS Not detected Not detected, (BEAKER) (test code = 5743) Equivocal RHINOVIRUS (BEAKER) (test Not detected Not detected, code = 2744) Equivocal INFLUENZA A (BEAKER) (test Not detected Not detected, code = 4565) Equivocal INFLUENZA A (NO SUBTYPE) Not detected, (test code = 7736) Equivocal INFLUENZA A SUBTYPE H1 Not detected, [...] sample was tested at the [facility]ostics Laboratory using the Seed[employer] Respiratory Panel. It is FDA cleared and has been verified and approved by the [facility]ostics [facility] for clinical use on nasopharyngeal swab specimens.The performance of the FilmArrayRP has not been established in individuals who received influenza vaccine. Recent administration ofa nasal influenza vaccine may cause false positive results for Influenza A and/orInfluenza B.POCT-GLUCOSE [id number] 08:15:00 Test Item Value Reference Range Interpretation Comments POC-GLUCOSE METER 184 mg/dL 70-[address] [facility] 3961 (BEAKER) (test code = NICO[place] 1538) [address] CBC W/PLT COUNT & AUTO [id number] 07:49:00 Test Item Value Reference Range Interpretation [...] APPLICABLE FOR DIALYSIS PATIEN TS. Specimen moderately [id number] 04:31:00 Test Item Value Reference Range Interpretation Comments MAGNESIUM (BEAKER) (test code = 1.9 mg/dL 1.6-2.6 627) LACTIC ACID, [id number] 04:18:00 Test Item Value Reference Range Interpretation Comments LACTATE BLOOD VENOUS (2) ([facility]) 1.3 mmol/L 0.5-2.2 (test code = 2872) Specimen moderately ictericPOCT-GLUCOSE [id number] 18:00:00 Test Item Value Reference Range Interpretation Comments POC-GLUCOSE METER 121 mg/dL 70-[address] [facility] 6720 [facility] (test code = NICOLE [place]rit[place] 1538) [address] [id number] 12:39:00 Test Item Value Reference Range Interpretation Comments PROCALCITONIN (Monkey[place]) (test code 4.50 ng/mL <0.05 H = 3036) SEPSIS RISK (ng/mL)Low: 0.05-0.50Intermediate: 0.51-2.00High: >=2.01POCT-GLUCOSE [id number] 12:20:00 Test Item Value Reference Range Interpretation Comments POC-GLUCOSE METER 148 mg/dL 70-[address] [facility] 6720 ([facility] (test code = ABELMARYAN Juan J [place] 1538) [address] LEGIONELLA ANTIGEN, [id number] 12:13:00 Test Item Value Reference Range Interpretation Comments L. PNEUMOPHILA Negative - see Negative fo r L. SEROGP 1 UR AG comment pneumophila ([place]key[place]) (test code serogrou p 1 antigen, = 1156) suggesting no r ecent or current infe ction with this serog roup. Legionellosis c annot be ruled out si nce other serogroup s and species may cau se disease. STREP PNEUMONIAE [id number] 12:13:00 Test Item Value Reference Range Interpretation Comments STREP PNEUMONIAE Presumptive negative Presumptive negative ANTIGEN (BEAKER) for pneumococcal for pneumococcal (test code = 1615) pneumonia - see pneumonia - see comment commen Presumptive negative for pneumococcal pneumonia, suggesting no current or recent pneumococcal infection. Infection due to S. pneumoniae cannot be ruled out since the antigen present in the sample may be below the detection limit of the test. RAPID INFLUENZA A&B [id number] 12:11:00 Test Item Value Reference Range Interpretation Comments RAPID INFLUENZA A AG (BEAKER) Negative Negative, Inconclusive (test code = 1622) RAPID INFLUENZA B AG (BEAKER) Negative Negative, Inconclusive (test code = 1623) LACTIC ACID, [id number] 10:51:00 Test Item Value Reference Range Interpretation Comments LACTATE BLOOD VENOUS (2) (BEAKER) 3.0 mmol/L 0.5-2.2 H (test code = 2872) Specimen moderately ictericU/S, ABDOMINAL, [id number] 07:19:00REFJENISE GOMEZ: CHERELLE SALVADOR Please perform with [...] MDReport Verified Date/Time: 10/28/2018 07:19:25 Reading Location: [address] Reading Room RAPID DRUG SCREEN, [id number] 07:07:00 Test Item Value Reference Range Interpretation [...] situations. Chain of custody not maintained. Some jxuw-ppm-xibvvei medications, as well as adulterants, may cause inaccurate results. Clinical correlation should be applied. A more comprehensive drug screen or confirmation of a detected drug may be performed upon request.CT, BRAIN, WITHOUT [id number] 06:42:00REFERRING MD: CHERELLE FRANCISCO REPORT CT, BRAIN, [...] is recommended for further characterization. Signed: Efrain Navarrete MDReport Verified Date/Time: 10/28/2018 06:42:47 VITAMIN B12 AND [id number] 06:21:00 Test Item Value Reference Range Interpretation Comments VITAMIN B12 (BEAKER) (test code = 719 pg/mL 213-816 774) FOLATE (BEAKER) (test code = 362) 13.7 ng/mL >=7.0 TROPONIN [id number] 06:05:00 Test Item Value Reference Range Interpretation [...] H (test code = 2590) COMPREHENSIVE METABOLIC [id number] 05:44:00 Test Item Value Reference Range Interpretation [...] APPLICABLE FOR DIALYSIS PATIEN TS. Specimen moderately [id number] 05:38:00 Test Item Value Reference Range Interpretation Comments MAGNESIUM (BEAKER) (test code = 2.3 mg/dL 1.6-2.6 627) LACTIC ACID, [id number] 05:32:00 Test Item Value Reference Range Interpretation Comments LACTATE BLOOD VENOUS 4.1 mmol/L 0.5-2.2 H Specime n slightly (2) (BEAKER) (test hemolyzed code = 2872) Specimen moderately ictericTROPONIN [id number] 02:28:00 Test Item Value Reference Range Interpretation [...] disease, and persistent tachyarrhythmia.RAD, ABDOMEN/KUB, 1 VIEW [id number] 02:04:00REFERRING MD: CHERELLE SALVADOR Reason for exam:->NG [...] pattern is within normal limits. Signed: Efrain Navarrete MDReport Verified Date/Time: 10/28/2018 02:04:20 HROMBIN TIME/[id number] 01:58:00 Test Item Value Reference Range Interpretation [...] mechanical heart valves.CBC W/PLT COUNT & AUTO [id number] 01:45:00 Test Item Value Reference Range Interpretation [...] User comments: Slide comments:URINALYSIS W/ REFLEX URINE [id number] 01:36:00 Test Item Value Reference Range Interpretation [...] SOURCE(BEAKER) (test code = 2795) COMPREHENSIVE METABOLIC [id number] 01:16:00 Test Item Value Reference Range Interpretation [...] APPLICABLE FOR DIALYSIS PATIEN TS. Specimen moderately [id number] 01:15:00 Test Item Value Reference Range Interpretation Comments AMMONIA (BEAKER) (test code = 348) 69 mol/L 18-72 LACTIC ACID, [id number] 01:08:00 Test Item Value Reference Range Interpretation Comments LACTATE BLOOD VENOUS (2) (BEAKER) 3.2 mmol/L 0.5-2.2 H (test code = 2872) Specimen moderately [id number] 01:08:00 Test Item Value Reference Range Interpretation Comments MAGNESIUM (BEAKER) (test code = 1.1 mg/dL 1.6-2.6 L 627) RAD, CHEST, 1 VIEW, NON [id number] 00:52:00REFERRING MD: CHERELLE SALVADOR Reason for exam:->sepsisShould [...] of an acute osseous abnormality. Signed: Williams Bahena MDReport Verified Date/Time: 10/28/2018 00:52:42 Reading Location: [address] Reading Room ACTIN (SMOOTH MUSCLE) ANTIBODY, [id number] 08:28:00 Test Item Value Reference Range Interpretation Comments SCAN RESULT (test code = 3823728) [id number] 08:27:00 Test Item Value Reference Range Interpretation Comments SCAN RESULT (test code = 2891890) NILS TITER AND [id number] 09:55:00 Test Item Value Reference Range Interpretation Comments NILS TITER (BEAKER) (test code = :160 1541) NISL PATTERN (BEAKER) (test code = Speckled 1781) ANTI-NUCLEAR ANTIBODY (NILS)2018-10-05 09:54:00 Test Item Value Reference Range Interpretation Comments ANTI-NUCLEAR ANTIBODY (NILS) (BEAKER) Positive Negative A (test code = 418) Test performed by IFA method.[id number] 10:54:00 Test Item Value Reference Range Interpretation Comments FERRITIN (BEAKER) (test code = 361) 218 ng/mL 5-275 HEPATITIS A ANTIBODY, [id number] 10:18:00 Test Item Value Reference Range Interpretation Comments HEPATITIS A IGG ANTIBODY (BEAKER) Reactive Nonreactive A (test code = 2797) ALPHA FETOPROTEIN (AFP), TUMOR [id number] 10:14:00 Test Item Value Reference Range Interpretation Comments ALPHA-FETOPROTEIN (BEAKER) (test 3.5 ng/mL <10.0 code = 1094) HEPATITIS A ANTIBODY, [id number] 10:14:00 Test Item Value Reference Range Interpretation Comments HEPATITIS A IGM ANTIBODY (BEAKER) Nonreactive Nonreactive (test code = 498) HEPATITIS B CORE ANTIBODY, [id number] 10:14:00 Test Item Value Reference Range Interpretation Comments HEPATITIS B CORE TOTAL ANTIBODY Nonreactive Nonreactive (BEAKER) (test code = 497) HEPATITIS B SURFACE [id number] 09:42:00 Test Item Value Reference Range Interpretation Comments HEPATITIS B SURFACE ANTIBODY < mIU/mL <8.0 (BEAKER) (test code = 647) HEPATITIS B SURFACE [id number] 09:36:00 Test Item Value Reference Range Interpretation [...] 41 % 20-55 (test code = 2590) [id number] 09:14:00 Test Item Value Reference Range Interpretation Comments ALPHA-1 ANTITRYPSIN (BEAKER) 159.30 mg/dL 90.00-200.00 (test code = 502) COMPREHENSIVE METABOLIC [id number] 09:10:00 Test Item Value Reference Range Interpretation [...] FOR DIALYSIS PATIEN TS. Specimen slightly ictericBILIRUBIN, [id number] 09:10:00 Test Item Value Reference Range Interpretation Comments BILIRUBIN DIRECT (BEAKER) (test 1.4 mg/dL 0.1-0.5 H code = 706) PROTHROMBIN [id number] 08:38:00 Test Item Value Reference Range Interpretation [...] % 0-1 PERCENT (BEAKER) (test code = 2803)
[2020-06-24] MEDS ORDERED: NA CHLORIDE 0.9% 1,000 ML ONE (07:33)
[2020-06-24] MEDS ORDERED: LIDOCAINE 1% MPF 5 ML VIAL ONE (07:56)
[2020-06-24] MEDS ORDERED: propofoL 200 MG/20 ML VIAL IV ONE ×2 (07:56)
--- NOTE | 2020-06-24 08:22 | ENDO RPT ---
[address], [address] EGD PROCEDURE REPORT EXAM DATE: 06/24/2020 PATIENT NAME: Tonny Cardona MR#: [id number] BIRTHDATE: 1955 ATTENDING: Anil Tavera Dr STATUS: outpatient TWX OPERATOR: Maureen Johnson RN, Kristi Sifuentes RN, and Anne-Marie Garcia CST INDICATIONS: The patient is a 64 yr old Male here for an EGD due to surveillance PROCEDURE PERFORMED: EGD with banding MEDICATIONS: Per Anesthesia. TOPICAL ANESTHETIC: none CONSENT: The patient understands the risks and benefits of the procedure and understands that these risks include, but are not limited to: sedation, allergic reaction, infection, perforation and/or bleeding. Alternative means of evaluation and treatment include, among others: physical exam, x-rays, and/or surgical intervention. The patient elects to proceed with this endoscopic procedure. DESCRIPTION OF PROCEDURE: During intra-op preparation period all mechanical medical equipment was checked for proper function. Hand hygiene and appropriate measures for infection prevention was taken. Procedure, possible complications, and alternatives including but not limited to the possibility of bleeding, perforation, tear, infection, sepsis, need for surgery, need for blood transfusion, and anesthesia related complications were explained to the patient. After the risks, benefits and alternatives of the procedure were thoroughly explained, Informed consent was verified, confirmed and timeout was successfully executed by the treatment team. The patient was placed in the left lateral position. The patient was anesthetized with topical anesthesia. Through the anesthetized oropharyngeal area, the scope was passed without any difficulty. The EG-[id number] ([id number]) endoscope was introduced through the mouth and advanced to the second portion of the duodenum. Retroflexed views revealed no abnormalities. The gastroscope was then slowly withdrawn and removed. Two columns of grade III varices with red whale arlet were found in the lower esophagus. Esophageal banding was performed. Portal hypertensive gastropathy was found in the body of the stomach. ADVERSE EVENTS: There were no complications. IMPRESSIONS: 1. Two columns of Grade III varices with red whale arlet in the lower esophagus, s/p banding X1 of red whale arlet varix 2. Portal hypertensive gastropathy in the body of the stomach 2. continue cirrhosis medications REPEAT EXAM: Return in 3 week(s) for EGD. Anil Tavera Dr eSigned: Anil Tavera Dr 06/24/2020 8:22 AM cc: Richy Herman CPT CODES: ICD9 CODES: PATIENT NAME: BrendanTonny MR#: [id number]
[2020-06-24 09:46] VITALS: BP 145/73; TEMP 97.4; O2SAT 97
== END 2020-06-24 09:05 | disposition home or self-care (01) ==
LOC: OR 07:05
PROVIDERS: ATTEND Internal Medicine Gastroenterology
PROC: 06L38CZ Occlusion of Esophageal Vein with Extraluminal Device, Via Natural or Artificial Opening Endoscopic (ICD-10-PCS; principal; 2020-06-24 08:15)
DX: I85.00 Esophageal varices without bleeding (principal); K76.6 Portal hypertension; K31.89 Other diseases of stomach and duodenum
CPT/HCPCS: 82947; 43244; U0002; J2704 ×2; J7030

== ENCOUNTER 2020-09-21 09:00 | Day surgery (SDC) | payer OTHER ==
[2020-09-21] MEDS ORDERED: NA CHLORIDE 0.9% 1,000 ML ONE (09:17)
[2020-09-21] MEDS ORDERED: propofoL 200 MG/20 ML VIAL IV ONE (10:00)
[2020-09-21] MEDS ORDERED: ALBUTEROL 2.5 MG/3 ML NEB SOL ONE (10:22)
[2020-09-21] MEDS ORDERED: ALBUTEROL INHALER 60 PUFF/8 GM IH ONE (10:27)
--- NOTE | 2020-09-21 10:37 | ENDO RPT ---
[address], [address] EGD PROCEDURE REPORT EXAM DATE: 09/21/2020 PATIENT NAME: Tonny Cardona MR#: [id number] BIRTHDATE: 1955 ATTENDING: Anil Tavera Dr STATUS: outpatient PRODUCTION EDITOR: Leelee Toth RN and Livier Chinchilla INDICATIONS: The patient is a 64 yr old Male here for an EGD due to esophageal varices surveillance (history of cirrhosis) and anemia PROCEDURE PERFORMED: EGD with banding MEDICATIONS: Per Anesthesia. TOPICAL ANESTHETIC: none CONSENT: The patient understands the risks and benefits of the procedure and understands that these risks include, but are not limited to: sedation, allergic reaction, infection, perforation and/or bleeding. Alternative means of evaluation and treatment include, among others: physical exam, x-rays, and/or surgical intervention. The patient elects to proceed with this endoscopic procedure. DESCRIPTION OF PROCEDURE: During intra-op preparation period all mechanical medical equipment was checked for proper function. Hand hygiene and appropriate measures for infection prevention was taken. Procedure, possible complications, and alternatives including but not limited to the possibility of bleeding, perforation, tear, infection, sepsis, need for surgery, need for blood transfusion, and anesthesia related complications were explained to the patient. After the risks, benefits and alternatives of the procedure were thoroughly explained, Informed consent was verified, confirmed and timeout was successfully executed by the treatment team. The patient was placed in the left lateral position. The patient was anesthetized with topical anesthesia. Through the anesthetized oropharyngeal area, the scope was passed without any difficulty. The EC-[id number] ([id number]) and EG-2990i ([id number]) endoscope was introduced through the mouth and advanced to the second portion of the duodenum. Retroflexed views revealed no abnormalities. The gastroscope was then slowly withdrawn and removed. Two columns of grade I to II varices were found in the lower esophagus. Banding X1 was performed. Mild portal hypertensive gastropathy was found in the body of the stomach. No active bleeding nor stigmata of recent hemorrhage noted. ADVERSE EVENTS: There were no complications. IMPRESSIONS: 1. Two columns of grade I to II varices in the lower esophagus, s/p banding X1 2. Mild portal hypertensive gastropathy in the body of the stomach 3. No active bleeding nor stigmata of recent hemorrhage RECOMMENDATIONS: Coreg REPEAT EXAM: Return in 4 month(s) for EGD. Anil Tavera Dr eSigned: Anil Tavera Dr 09/21/2020 10:37 AM cc: CPT CODES: ICD9 CODES: PATIENT NAME: Tonny Cardona MR#: [id number]
[2020-09-21 11:21] VITALS: O2SAT 100
[2020-09-21 11:53] LABS: BUN Blood Urea Nitrogen 6 mg/dL (7-18); Bicarbonate 26 mmol/L (21-32); Glucose Level 75 mg/dL (74-106); Potassium 4.2 mmol/L (3.5-5.1); Sodium Level 140 mmol/L (136-145)
--- NOTE | 2020-09-21 12:22 | RAD REPORT ---
EXAM DESCRIPTION: RAD - Chest Pa And Lat (2 Views) - 09/21/2020 11:40 am CLINICAL HISTORY: SOB Chest pain. COMPARISON: Chest Single View dated 01/10/2020; Chest Single View dated 12/24/2019; Chest For Pe Angio dated 01/10/2020 FINDINGS: Moderate right pleural effusion is noted. The left lung appears grossly clear. The heart i s mildly enlarged size. IMPRESSION: Moderate right pleural effusion.
[2020-09-21] MEDS ORDERED: NA CHLORIDE 0.9% 500 ML ONE (12:35)
--- NOTE | 2020-09-21 13:31 | RAD REPORT ---
EXAM DESCRIPTION: CT - Chest Angio - 09/21/2020 1:14 pm CLINICAL HISTORY: Shortness of breath/pleural effusion COMPARISON: September 21, 2020 chest x-ray TECHNIQUE: Dynamically enhanced axial 3 mm thick images of the chest were obtained during administra tion of <100> mL Isovue 370 IV contrast. Coronal and oblique reconstruction images were generated and reviewed. Exam utilizes a protocol for optimal evaluation of pulmonary arterial tree. Maximum intensity projections 3D imaging was utilized All CT scans are performed using dose optimization technique as appropriate and may include automated exposure control or mA/KV adjustment according to patient size. FINDINGS: A pulmonary embolus is not seen. A thoracic aortic aneurysm is not noted. Moderate right pleural effusion. A pericardial effusion is not seen. A lung consolidation is not present. Mild passive right lower lobe atelectasis. Cirrhotic liver. Paraesophageal varices IMPRESSION: Negative for a pulmonary embolism. Moderate right pleural effusion
[2020-09-21] MEDS ORDERED: FUROSEMIDE 20 MG/ 2ML VIAL IV ONE (14:20)
[2020-09-21] MEDS ORDERED: FUROSEMIDE 40 MG/4 ML VIAL ONE ×2 (15:33→17:56)
--- NOTE | 2020-09-21 17:34 | CON ---
Date of Consultation: 09/21/2020 Reason For Consultation: Anemia, hemoglobin 7.5 with history of end-stage liver disease, cirrhosis w ith esophageal varices. History Of Present Illness: The patient is a 64-year-old male with history of diabetes, hyp ertension, obesity, cirrhosis secondary to alcohol abuse in the past, psoriasis, mesothelioma seconda ry to asbestosis. The patient presented after blood work revealed hemoglobin of 7.5. The patient de nies any bleeding seen by him except for some mild occasional bleeding from his gums, but he specific ally denies any nausea, vomiting, coffee-grounds emesis, hematemesis, melena, hematochezia, syncope, presyncope, fatigue hemoptysis, hematuria, or other signs of bleeding except for the bleeding from hi s gums recently. Of note, the patient has had multiple EGDs over the past year, greater than 6. Las t colonoscopy was performed June 15, 2018 by outside physician with colon polyps removed at that t dayana. The patient has lost approximately 10 pounds over the past few months and he has gone to hepato logist at the [facility] and a CT scan there as per him and his daughter revealed possible metastatic disease. He does have a history of mesothelioma that we wi ll follow. It is unclear what the Hepatology Service at [facility] thought the prima ry source of the possible metastatic lesions are, but he is losing weight, maybe 10 to 20 pounds it a ppears by just visual inspection. Past Medical History: Significant for diabetes; hypertension; obesity; cirrhosis secondary to alcoho l abuse, no alcohol since 2018; psoriasis; mesothelioma to secondary asbestosis. Medications: See list. Social History: He is x2. Three children. Quit tobacco 2017. Quit alcohol 2017. Family History: Father of complications from diabetes. Mother of liver disease. Physical Examination: Vital Signs: The patient is afebrile. Vital signs stable. In February last year, he was 5 feet 6 in ches, 232 pounds. HEENT: Normocephalic, atraumatic. Anicteric. Pupils equal, round, and reactive to light. Extraocu lar movements are intact. Oropharynx clear. Neck: Supple. No masses. Respirations: Clear in the upper lung fisher. Somewhat diminished in the lower. Abdomen: Obese. Possible mild ascites. Extremities: No clubbing, cyanosis, but he did have some 1 to 2+ lower extremity edema. Skin: He does have psoriasis throughout much of his body. Neuro: He is alert and oriented x2 to 3. Able to move all extremities well. Data Reviewed: On , he has a white blood cell count of 4.4. He has hemoglobin of 7.3, MCV of 63 , platelet count of 111. Last time PT was checked was March 09, 2020. PT of 14.7, INR 1.25, PTT of 31.9. He had a sodium 1 40, potassium 3.9, chloride 109, bicarb 25, BUN of 6, creatinine of 0.6, glucose 87, calcium 7.9, hao ritin of 12.1, which is low. Total bili of 1.8, AST of 38, ALT 33, alk phos 145, total protein 6.6, albumin 2.5. Triglycerides 62, cholesterol 119, LDL 53, HDL 55. Vitamin B12 of 1406, vitamin D of 1 5.2. TSH of 1.29. Ammonia level is elevated at 66. That's way back on March 09, 2020. UA was ne gative. Looks like he had a COVID back on March 11, 2020 with a positive COVID PCR test and negati ve on September 18, 2020. CT abdomen and pelvis on October 27 revealed primary cirrhosis with portal hyper tension, several thickened small bowel loops and small fat containing hernia with mesh material in pl chase, unchanged. CT chest, thoracic, no evidence pulmonary embolism. No acute lung findings. Impression: 1.Anemia with hemoglobin down to 7.3, MCV of 63 and a low ferritin of 12. The patient has a history of esophageal varices and recent gum bleeding, but denies any nausea, vomiting, abdominal pain, arsen temesis, coffee-ground emesis, melena, hematochezia, hemoptysis, hematuria, syncope, presyncope, fati yue. He had multiple, over 6 EGDs over the past year. He had varices with banding. His last colono scopy was performed on June 15, 2018 by outside physician with colon polyps removed at that time. He has a history of mesothelioma as well. 2.Ten to 20 pounds weight loss recently, unexplained. The patient has history of mesothelioma. His last colonoscopy was in June 15, 2018 with colon polyps removed at that time. He has had recurre nt EGDs. Unclear what else may be causing this. 3.Pain at the right angle of the jaw. Will need to have that investigated by ENT and consider CT of that area. 4.Possible metastatic lesions noted in the liver on recent imaging of the liver in [place] as per neville garcia. We will need to have this report to consider repeat CT of the abdomen on this admission. 5.Thrombocytopenia secondary to end-stage liver disease secondary to alcoholic cirrhosis. No alcoho l use since 2018. 6.History of diabetes; hypertension; cirrhosis secondary to alcohol abuse in the past; psoriasis; me sothelioma secondary to asbestosis, exposure, working at the point. Recommendation: 1.EGD. 2.Possible colonoscopy. 3.Serial H and H, and transfuse p.r.n. with the goal hemoglobin of 7.8, with history of esophageal v arices. 4.Obtain imaging from [place] to show possible metastatic lesions in his liver and try to ascertain what the possible etiology was ascertained by the [facility] in [place]. MILTON/LEXIE Voice ID: [id number] Report ID: [id number]
[2020-09-21 18:25] VITALS: BP 129/68; TEMP 98.3
[2020-09-21 19:00] LABS: Absolute Lymphocytes (CBC) 1.8 K/uL (0.7-4.9); Basophils % 1.1 % (0-1.3); Hematocrit 30.8 % (39.6-49.0); MPV 9.1 fL (7.6-11.3); RBC Red Blood Cell Count 4.57 M/uL (4.33-5.43)
[2020-09-21] MEDS ORDERED: ALBUTEROL 2.5 MG/3 ML NEB SOL NEB SCH (20:00)
--- NOTE | 2020-09-21 22:03 | P.SSS ---
Patient History Date of Service: 09/21/20 Reason for admission: DYSPNEA, ANEMIA History of Present Illness: MR. GRIGGS HAS ALCOHOLIC CIRRHOSIS, ANEMIA OF IRON DEFICIENCY AND COPD WIH DM. HE CAME FOR EGD. I CALLED THE HOUSE SUPERVISER TO ADMIT HIM FOR PACKED RBCS. THERE ARE NO BEDS IN HOSPITAL. THERE ARE ABOUT 12 PATIENTS WAITING IN ER FOR BED. SHE ARRANGED FOR ADMISSION AND TRANSFUSION IN OP SURGERY. I ALSO DID CT ANGIOGRAM OF CHEST HE HAD HIGH D DIMER. PE WAS RULED OUT. HE GOT PACKED RBCS. IV LASIX, NEUBULZER TREATMENT. I CALLED IN NEBULIZER AND SUPPLIES TO ECKERDS. HE IS STABLE TO GO HOME WITH MORE WORK TO CONTINUE ON OP BASIS. HE IS ASKED TO FU WITH DR. SALVADOR FOR ASCITES AND I WILL FU FOR OTHER ISSUES INCLUDING, PLEURAL EFFUSION, POSSIBLE ECHO AND SONOGRAM OF ABDOMNEN Allergies lorazepam [From Ativan] Allergy (Severe, Verified 09/21/20 09:17) Shortness of breath Home medications list reviewed: Yes Home Medications: Carvedilol [Coreg] 6.25 mg PO BIDWM 01/11/20 Folic Acid 1 mg PO DAILY 01/11/20 Pantoprazole [Protonix Tab*] 40 mg PO DAILY 01/11/20 Spironolactone 100 mg PO BID 01/11/20 Furosemide [Lasix*] 40 mg PO BID 09/18/20 Insulin -Regular Human [Novolin -R*] See Protocol SQ ACHS 09/18/20 Insulin Glargine,Hum.rec.anlog [Toujeo Solostar] 50 unit SQ DAILY 09/18/20 Rifaximin [Xifaxan] 550 mg PO BID 09/18/20 Trazodone [Desyrel] 50 mg PO BEDTIME 09/18/20 - Past Medical/Surgical History Diabetic: Yes -: DM II -: HTN -: CHF -: Liver cirrhosis, -: Hyperlipidemia -: Obesity -: GERD -: Gastric varices -: H pylori gastritis -: Hernia repair Psychosocial/ Personal History: Patient has significant other. - Family History Father -: Diabetes Mother -: Liver disease - Social History Alcohol use: No CD- Drugs: No Caffeine use: Yes Physical Examination - Vital Signs Temperature: 98.3 F Blood Pressure: 129/68 Pulse: 78 Respirations: 20 - Physical Exam General: Oriented x3, Mild distress HEENT: Atraumatic, PERRLA, Mucous membr. moist/pink, EOMI, Sclerae nonicteric Neck: Supple, 2+ carotid pulse no bruit, No LAD, Without JVD or thyroid abnormality Respiratory: Clear to auscultation bilaterally, Normal air movement Cardiovascular: Regular rate/rhythm, Normal S1 S2 Gastrointestinal: Normal bowel sounds, No tenderness Musculoskeletal: No tenderness Integumentary: No rashes Neurological: Normal gait, Normal speech, Normal strength at 5/5 x4 extr, Normal tone, Normal affect Lymphatics: No axilla or inguinal lymphadenopathy - Studies Laboratory Data (last 24 hrs) 09/21/20 18:39: WBC 5.40 D, Hgb 9.4 L, Hct 30.8 L D, Plt Count 122 L 09/21/20 11:24: Sodium 140, Potassium 4.2, BUN 6 L, Creatinine 0.57, Glucose 75 - Diagnosis (Problem(s)) (1) Dyspnea Status: Acute Plan: LASIX SPIRONOLACTONE. NEBULIZER RX PATIENT MAY NEED TO VISIT MANAGER INTERN THIS WILL BE DONE OP BASIS. Qualifiers: Dyspnea type: dyspnea on exertion Qualified Code(s): R06.00 - Dyspnea, unspecified (2) Anemia Status: Chronic Plan: FU BY DR. SALVADOR. Qualifiers: Anemia type: iron deficiency (3) Alcoholic cirrhosis Status: Acute Plan: HIS PROGNOSIS IS POOR HE HAS ANEMIA, ASCITES, COPD AND CIRRHOSIS OF LIVER. Qualifiers: Ascites presence: with ascites Qualified Code(s): K70.31 - Alcoholic cirrhosis of liver with ascites - Disposition Disposition: ROUTINE DISCHARGE Condition: GOOD
[2020-09-21 22:38] LABS: Anisocytosis 2+; Blood Morphology Comment NOTED (NOT SEEN); Hypochromasia 2+; Platelet Estimate ADEQ; White Blood Cell Scan OK (OK)
--- NOTE | 2020-09-22 11:16 | EKG ---
Test Date: 2020-09-21 Test Time: 13:16:24 Type Copyist: TG MEASUREMENT RESULTS: Intervals: Rate: 64 FL: 166 QRSD: 84 QT: 470 QTc: 484 [place]: P: 38 FL: 166 QRS: -36 T: 27 INTERPRETIVE STATEMENTS: Normal sinus rhythm Left axis deviation Low voltage QRS Cannot rule out Anterior infarct, age undetermined Abnormal ECG Compared to ECG 03/04/2020 12:21:41 Left-axis deviation now present Low QRS voltage now present Myocardial infarct finding now present Left anterior fascicular block no longer present Electronically Signed On 09-22-20 11:13:35 CDT by Nemesio Rachel
== END 2020-09-21 18:40 | disposition home or self-care (01) ==
LOC: OR 09:00
PROVIDERS: ATTEND Internal Medicine Gastroenterology
PROC: 06L38CZ Occlusion of Esophageal Vein with Extraluminal Device, Via Natural or Artificial Opening Endoscopic (ICD-10-PCS; 2020-09-21)
PROC: 30233N1 Transfusion of Nonautologous Red Blood Cells into Peripheral Vein, Percutaneous Approach (ICD-10-PCS; principal; 2020-09-21 10:00)
DX: K70.30 Alcoholic cirrhosis of liver without ascites (principal); I85.10 Secondary esophageal varices without bleeding; N18.6 End stage renal disease; D64.9 Anemia, unspecified; E11.9 Type 2 diabetes mellitus without complications; E66.9 Obesity, unspecified; I10 Essential (primary) hypertension; C45.9 Mesothelioma, unspecified; Z20.822 Contact with and (suspected) exposure to COVID-19
CPT/HCPCS: 93005; 85025; 80048; 36415; 86900; 86850; 86901; 82947; 85379; 71275; 71046; 36430; 43244; U0003; Q9967; J2704; J1940 ×2; P9016 ×2; J7050; J7030; 80053; 80061; 81003; 81015; 82306; 82607; 82728; 83036; 84443; 87086; 87088

== ENCOUNTER 2020-10-05 20:58 | Inpatient (IN) | payer OTHER ==
--- OUTSIDE RECORDS SUMMARY | 2020-10-05 21:05 | XMS REPORT | Continuity of Care Document ---
:1955 Author Organization [facility] t Address [address] [place] [address] Care Team Providers Name Role Phone Idris CONTRERAS, Maury Attending Clinician Unavailable Ruba GOMEZ MPH, Maddie Attending Clinician [phone] Ramirez Attending Clinician Unavailable Mauricio CONTRERAS, R Attending Clinician Unavailable Rosalia Stein Attending Clinician Unavailable Iker CONTRERAS Attending Clinician Unavailable Ni MILES Attending Clinician MADDIE YEH Attending Clinician Unavailable Heather Allen DO Attending Clinician Doctor Unassigned, Name Attending Clinician Unavailable Harika GOMEZ Attending Clinician Albert Arroyo MD, [place] Attending Clinician Unavailable Estela Attending Clinician Unavailable Maury Abbott NP Attending Clinician Albaro CONTRERAS Attending Clinician Unavailable Nathen Jorgensen MD Attending Clinician Dulce CONTRERAS Attending Clinician Unavailable Bettie Swift MD Attending Clinician Nathen JORGENSEN Attending Clinician Unavailable Angeli Pizarro NP Attending Clinician Luis Enrique MELENDREZ Attending Clinician Unavailable Alli Dan MD Attending Clinician Yohannes MELENDREZ Attending Clinician Unavailable Almaz GOMEZ, Porsche Attending Clinician LOUIS Attending Clinician Unavailable Louis GOMEZ Attending Clinician Compa GOMEZ Attending Clinician Chiqui GOMEZ, PRandolph Attending Clinician Jacobo GOMEZ Attending Clinician Sera Henderson CRNA Attending Clinician [phone] MONAE AN Attending Clinician Unavailable RAMAN GLASER Attending Clinician Unavailable ALLI DAN Attending Clinician Unavailable King PATRICIA C Attending Clinician BUBBA LI Attending Clinician Unavailable COMPA Admitting Clinician Unavailable MONAE AN Admitting Clinician Unavailable BUBBA LI Admitting Clinician Unavailable Payers Payer Name Policy Type Policy Effective Date Expiration Date Sour ce Number MEDICAREMEDICARE A [id number] [facility] On[facility]60/05/2017- 00:00:00 - Medical Present[facility]icare Center COVID VACCINE ADMIN / [id number] 2020-06-[address] [facility] TESTINGCOVID VACCINE 00:00:00 - Wi dicco ADMIN / Center [id number]/-Present Problems Condition Condition Condition Status Onset Resolution Last Treating Co mments Source Name Details Category Date Date Treatment Clinician Date COVID-19 COVID-19 Disease Active 2019- Overview: [facility] virus virus 8-24 [facility] - infection infection 00:00: test Medi jeevan 00 01/10/2020 Center SOB SOB Disease Active [facility] (shortness (shortness 7-28 Esther kes - of breath) of breath) 00:00: Wi dical 00 [place] Cirrhosis Cirrhosis Disease Active [facility] 1-07 [facility] - 00:00: Medical 00 [place] History of History of Disease Active 2018-[address] alcohol alcohol 0-21 [facility] - use use 00:00: Medical 00 [place] 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 Psoriasis Psoriasis Disease Active Last [facility] 7[facility]24 [facility] - 00:00: t & Plan: Medical 00 Continue Center follow up with dermatolo gy/rheuma tology. Immunity Immunity Disease Active [facility] status status 7 [facility] - testing testing 00:00: Medical 00 Center Hepatic Hepatic Disease Active [facility] encephalop encephalop 6-04 [facility] kes - athy athy 00:00: Medical 00 Center SBP SBP Disease Active [facility] (spontaneo (spontaneo 6-04 Esther kes - us us 00:00: Medical bacterial bacterial 00 Cent er peritoniti peritoniti s) s) Portal Portal Disease Active [facility] hypertensi hypertensi 6-04 Esther kes - on on 00:00: Medical 00 Center Septic Septic Disease Active [facility] shock shock 6-04 [facility] - 00:00: Medical 00 Center Sepsis Sepsis Disease Active [facility] 6[facility]01 [facility] - 00:00: Medical 00 Center Alcoholic Alcoholic Disease Active Last [facility] cirrhosis cirrhosis 5-08 Assesspooja garcia - of liver of liver 00:00: t & Plan: Med ical with with 00 Cirrhosis Center ascites ascites secondary to ETOH/AGUILAR . He will continue follow up with hepatolog y. Ascites Ascites Disease Active Last [facility] due to due to 5-08 Assesspooja Pedraza - alcoholic alcoholic 00:00: t & Plan: M edical cirrhosis cirrhosis [address] and leg swelling is controlle d with Lasix 40 mg and Aldactone 100 mg a day; restrict salt to 2 gm per day. Low carb but high protein diet. Screening Screening Disease Active Last [facility] for for 5-08 Assesspooja Pedraza - endocrine, endocrine, 00:00: t & Plan: Medical metabolic metabolic 00 Serologic C enter and and al tests immunity immunity will be disorder disorder completed to determine the presence of immunity to hepatitis A and B. If found susceptib le she will be referred to her primary care provider to consider the administr ation of the appropria te vaccines. 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 Family History Family Member Diagnosis Comments Start Date Stop Date Source Natural brother Diabetes [facility] Natural brother Hypertension [facility] Natural father Diabetes [facility] Natural mother Liver disease [facility] Natural sister Cancer [facility] Social History Social Habit Start Date Stop Date Quantity Comments Source History [facility] - Alcohol Std Drinks [facility] B[facility] [address] Sex Assigned At [facility] Cigarettes smoked 2020-09-01 2020-09-01 [facility] shante - current (pack per 00:00:00 00:00:00 [facility] day) - Reported Cigarette 2020-09-01 2020-09-01 [facility] - pack-years 00:00:00 00:00:00 [facility] Tobacco use and 2020-09-01 2020-09-01 Never used [facility] - exposure 00:00:00 00:00:00 [facility] Alcohol intake 2020-09-01 2020-09-01 Current [facility] - 00:00:00 00:00:00 non-drinker of Medical Ce nter alcohol (finding) History [facility] 2018-10-03 2018-10-03 1 [facility] - Alcohol Frequency 00:00:00 00:00:00 [facility] History of tobacco 2017-10-03 Current smoker [facility] Ped[facility] - use 00:00:00 [facility] Alcohol Comment 2010-06-15 2010-06-15 6 packs/day-last [facility] 00:00:00 00:00:00 time yesterday Smoking Status Start Date Stop Date Source Former smoker 2020-09-01 00:00:00 2020-09-01 00:00:[address] [facility] [facility] Current every day 2015-12-15 00:00:00 Maco Munoz [facility] smoker Medications Ordered Filled Start Stop Current Ordering Indication Dosage Frequency Signature Comments Components Source Medication Medication Date Date Medication? Clinician (SIG) Name Name spironolact 2020- No 100mg Q.5D Take [address] [address] one 4-06 04-06 mg by [facility] - (ALDACTONE) 12:49: 00:00 mouth 2 Me dical 100 MG 47 :00 (two) Center tablet times daily. penicillin 2020- No 500mg [id number] Take [address] v potassium 4- 04-06 [id number] mg by [facility] - (VEETID) 12:48: 00:00 3D mouth 3 Medic al 500 MG 17 :00 (three) Center tablet times daily. pitavastati No 2mg QD Take [address] [facility] n calcium 09-01-06 by mouth [facility] - (LIVALO) 2 12:48: 00:00 daily . Med ical mg Tab 08 :00 Center tablet thiamine 2020- No 100mg QD Take [address] [address] (vitamin 4- 04-06 mg by [facility] - B-1) 100 MG 12:48: 00:00 mouth Medi jeevan tablet 08 :00 daily. Center rifAXIMin Yes 550mg Q.5D Take [address] 550 mg Tab 4-06 mg by [facility] - 12:40: mouth 2 Medical 30 (two) Center times daily. furosemide Yes 20mg Q.[id number] Take [address] (LASIX) 20 4-06 [id number] by mouth 3 [facility] - MG tablet 12:40: 3D (three) Medic al 30 times Center daily . omeprazole 2019- No 40mg QD Take [address] (PRILOSEC) 8 08-03 by mouth Luke s - 40 MG 09:55: 00:00 daily. Medical capsule 52 :00 Center thiamine 2020- No 100mg QD Take [address] (VITAMIN 8- 08-03 mg by [facility] - B-1) 100 MG 09:55: 00:00 mouth Medi jeevan tablet 52 :00 daily. [place] clobetasoL Yes 1{appli Q.5D Apply [address] (TEMOVATE) 8-03 cation} applicatio [facility] - 0.05 % 00:00: n Medical cream 00 topically Center 2 (two) times daily. furosemide No 80mg Q.5D Take [address] (LASIX) 40 1-07 04-06 tablets [facility] - MG tablet 00:00: 00:00 (80 mg Medic al 00 :00 total) by Center mouth 2 (two) times daily. clobetasol 2019- No 1{appli Q.5D Apply [address] (TEMOVATE) 7-22 08-03 cation} applicatio [facility]ukes - 0.05 % 00:00: 00:00 n Medical cream 00 :00 topically Center 2 (two) times daily. thiamine 2019- No TK [address] 100 mg Tab 6- 08-03 D [facility] - tablet 00:00: 00:00 Medical 00 :00 [place] ALPRAZolam 2019- No TK [address] (XANAX) 1 6-18 08-03 BID PRF [facility] - MG tablet 00:00: 00:00 ANXIETY Medi jeevan 00 :00 [place] folic acid Yes 1mg QD Take [address] (FOLVITE) 1 6-13 by mouth Luke s - MG tablet 00:00: daily . Medic al 00 [place] lactulose Yes TK [address] (CHRONULAC) 5-04 PO TID [facility] - 10 gram/15 00:00: Medical mL solution 00 [place] triamcinolo 2020- No 1{appli Q.5D Apply [address] ne 3-10 08-03 cation} applicatio [facility]ukes - (KENALOG) 00:00: 00:00 n Medical 0.1 % 00 :00 topically Center topical 2 (two) cream times daily. metFORMIN 2020- No 500mg Take [address] (GLUCOPHAGE 2-12 04-06 mg by [facility] - ) 500 MG 00:00: 00:00 mouth 2 Medic al tablet 00 :00 (two) Center times daily with breakfast and [...] daily . Medi jeevan 40 MG 00 Center tablet hydrOXYzine 2017-05 Yes 50mg Take [address] (ATARAX) 50 1-14 by mouth Luke s - MG tablet 00:00: as needed Med ical 00 . Center traMADol Yes Recurrent 50mg Take 1 [facility] (ULTRAM) 50 7-19 umbilical tablet by Health mg tablet 00:00: hernia mouth 00 every 6 hours as needed for Pain. Immunizations Ordered Immunization Filled Immunization Date Status Commen Source Name Name Covid-19 Vaccine 2020-07-[address] [facility] - Mrna (Pf) 00:00:00 [facility] (Pfizer/[employer]) Covid-19 Vaccine 2020-06-[address] [facility] u[facility] - Mrna (Pf) 00:00:00 [facility] (Pfizer/biontech) Pneumococcal 2018-10-28 Completed [facility] - Conjugate (Prevnar) 00:00:00 [facility] 13-Valent Vital Signs Vital Name Observation Time Observation Value Comments Source Systolic blood 2020-09-01 13:01:00 164 mm[Hg] [facility] Diastolic blood 2020-09-01 13:01:00 80 mm[Hg] [facility] S [facility] Heart rate 2020-09-01 13:01:00 93 /min [facility] Body temperature 2020-09-01 13:01:00 36.94 Corrina [facility] Respiratory rate 2020-09-01 13:01:00 18 /min [facility] Body height 2020-09-01 13:01:00 167.6 cm [facility] Body weight 2020-09-01 13:01:00 106.459 kg [facility] BMI 2020-09-01 13:01:00 37.88 kg/m2 [facility] Oxygen saturation in 2020-09-01 13:01:00 98 /min [facility] Arterial blood by Medical Ce nter Pulse oximetry Procedures Procedure Date / Time Performed Performing Clinician Sour e MR ABDOMEN WITH & WITHOUT 2020-09-01 14:15:00 Terrell Cyr [facility] IV CONTRAST [facility] BASIC METABOLIC PANEL (7) 2020-09-01 13:15:00 Nickie Yeh [facility] HEPATIC FUNCTION PANEL 2020-09-01 13:15:[address] [facility] CBC W/PLT COUNT & AUTO 2020-09-01 13:15:[address] [facility] PROTHROMBIN TIME/INR 2020-09-01 13:15:[address] [facility] ALPHA FETOPROTEIN (AFP), 2020-09-01 13:15:00 Nickie Yeh [facility] TUMOR MARKER [facility] PROTHROMBIN TIME/INR 2020-06-12 12:25:00 Ankur Dan [facility] COMPREHENSIVE METABOLIC 2020-06-12 12:25:00 Ankur Dan [facility] CBC W/PLT COUNT & AUTO 2020-06-12 12:25:[address] [facility] BILIRUBIN, DIRECT 2020-06-12 12:25:00 Ankur Dan [facility] BILIRUBIN, DIRECT 2020-05-19 08:57:00 Veena Switf [facility] PROTHROMBIN TIME/INR 2020-05-19 08:57:00 eVena Swift [facility] CBC W/PLT COUNT & AUTO 2020-05-19 08:57:00 Veena Swift [facility] COMPREHENSIVE METABOLIC 2020-05-19 08:57:00 Veena Swift [facility] MR ABDOMEN WITH & WITHOUT 2020-03-13 14:05:00 [facility] CONTRAST [facility] XR DXA BONE DENSITY STUDY 2020-03-13 12:50:00 Veena Swift [facility] ALPHA FETOPROTEIN (AFP), 2020-03-13 11:59:00 Yuan Jorgensen [facility] TUMOR MARKER [facility] CBC W/PLT COUNT & AUTO 2020-03-13 11:59:00 Yuan Jorgensen I [facility] PROTHROMBIN TIME/INR 2020-03-13 11:59:00 Yuan Jorgensen [facility] MISCELLANEOUS LAB ORDER 2020-03-13 11:58:00 Yuan Jorgensen [facility] BILIRUBIN, DIRECT 2020-03-13 11:58:00 Yuan Jorgensen [facility] COMPREHENSIVE METABOLIC 2020-03-13 11:58:00 Yuan Jorgensen [facility] SARS-COV2/RT-PCR ([facility] & 2020-03-13 11:36:00 Yuan Jorgensen [facility] REF LABS) Medical Center REPORT OF PROCEDURE - 2019-12-31 15:30:02 Provider, Default [facility] ENDOSCOPY SCAN [facility] [place] RHYTHM STRIP - SCAN 2019-12-30 17:20:55 Provider, Default [facility] POCT-GLUCOSE METER 2019-12-30 07:35:00 Jennifer Florian [facility] HEPATIC FUNCTION PANEL 2019-12-30 04:33:[address] [facility] POCT-GLUCOSE METER 2019-12-29 22:05:00 Jennifer Florian [facility] POCT-GLUCOSE METER 2019-12-29 17:12:00 Jennifer Florian [facility] POCT-GLUCOSE METER 2019-12-29 13:21:00 Jennifer Florian [facility] UPPER ENDOSCOPY,BANDING 2019-12-29 12:30:00 Tony Centeno [facility] SIGMOIDOSCOPY 2019-12-29 12:30:00 Esther Centenokasz [facility] POCT-GLUCOSE METER 2019-12-29 11:57:00 Jennifer Florian [facility] REPORT OF PROCEDURE - 2019-12-29 11:44:37 Tony Centeno [facility] REPORT OF PROCEDURE - 2019-12-29 11:29:55 Tony Centeno [facility] POCT-GLUCOSE METER 2019-12-29 07:50:00 Jennifer Florian [facility] HEPATIC FUNCTION PANEL 2019-12-29 04:55:00 [facility]INR 2019-12-29 04:55[facility] & AUTO 2019-12-29 04:55:[address] [facility] BASIC METABOLIC PANEL (7) 2019-12-29 04:55:00 Jenniefr Florian [facility] POCT-GLUCOSE METER 2019-12-28 22:01:00 Jennifer Florian [facility] POCT-GLUCOSE METER 2019-12-28 09:20:00 Jennifer Florian [facility] HEPATIC FUNCTION PANEL 2019-12-28 05:21:00 Jennifer Florian [facility] CBC W/PLT COUNT & AUTO 2019-12-28 05:21:[address] [facility] BASIC METABOLIC PANEL (7) 2019-12-28 05:21:00 Jennifer Florian [facility] (CELLAVISION MANUAL DIFF) 2019-12-28 05:21:00 Jennifer Florian [facility] POCT-GLUCOSE METER 2019-12-27 21:54:00 Jennifer Florian [facility] POCT-GLUCOSE METER 2019-12-27 16:55:00 Jennifer Florian [facility] CBC W/PLT COUNT & AUTO 2019-12-27 11:56:00 Jennifer Florian [facility] POCT-GLUCOSE METER 2019-12-27 11:42:00 Jennifer Florian [facility] POCT-GLUCOSE METER 2019-12-27 07:48:00 Jennifer Florian [facility] HEPATIC FUNCTION PANEL 2019-12-27 04:00:00 Jennifer Florian CH, [facility] BASIC METABOLIC PANEL (7) 2019-12-27 04:00:00 Jennifer Florian [facility] POCT-GLUCOSE METER 2019-12-26 21:36:00 Jennifer Florian [facility] BLOOD CULTURE 2019-12-26 18:11:00 Jennifer Florian [facility] BLOOD CULTURE 2019-12-26 18:10:00 Jennifer Florian [facility] POCT-GLUCOSE METER 2019-12-26 17:36:00 Jennifer Florian [facility] POCT-GLUCOSE METER 2019-12-26 12:13:00 Jennifer Florian [facility] POCT-GLUCOSE METER 2019-12-26 07:38:00 Jennifer Florian [facility] CBC W/PLT COUNT & AUTO 2019-12-26 04:24:00 Jennifer Florian CH, I [facility] BASIC METABOLIC PANEL (7) 2019-12-26 04:24:00 Jennifer Florian [facility] PROTHROMBIN TIME/INR 2019-12-26 04:24:00 Jennifer Florian [facility] HEPATIC FUNCTION PANEL 2019-12-26 04:24:00 Jennifer Florian [facility] VITAMIN B12 AND FOLATE 2019-12-26 04:24:00 Sandro Gay [facility] POCT-GLUCOSE METER 2019-12-25 21:59:00 Jennifer Florian [facility] HEMOGLOBIN AND HEMATOCRIT 2019-12-25 15:56:00 Jennifer Florian [facility] IRON, TIBC, % SAT. 2019-12-25 12:02:[address] [facility] (WITHOUT FERRITIN) [facility] 2019-12-25 12:02:00 Sandro Gay [facility] CBC W/PLT COUNT & AUTO 2019-12-25 04:55:00 Compa [facility] METABOLIC 2019-12-25 04:55:00 Compa [facility] POCT-GLUCOSE METER 2019-12-24 23:27:00 Compa [facility] XR CHEST 1 VIEW 2019-12-24 18:17:00 Compa Andre [facility] PORTABLE/BEDSIDE Medical Center [facility] METABOLIC 2019-10-07 09:28:00 Ankur Dan [facility] CBC W/PLT COUNT & AUTO 2019-10-07 09:28:[address] [facility] BILIRUBIN, DIRECT 2019-10-07 09:28:00 Ankur Dan [facility] ALPHA FETOPROTEIN (AFP), 2019-10-07 09:28:00 Ankur Dan [facility] TUMOR MARKER [facility] PROTHROMBIN TIME/INR 2019-10-07 09:28:00 Ankur Dan [facility] PLATELET ESTIMATION 2019-10-07 09:28:00 Ankur Dan [facility] Plan of Care Planned Activity Planned Date Details Comments Source Future Scheduled 2028-06-[address] [facility] - Test 00:00:00 malignant neoplasm of Medica l Center colon (procedure) [code = 311401380] Future Scheduled 2026-09-18 DTAP/TDAP/TD VACCINES [facility] Test 00:00:00 (2 - Td) [code = Medical [address] DTAP/TDAP/TD VACCINES (2 - Td)] Future Scheduled 2021-12-[address] [facility] - Test 00:00:00 (procedure) [code = Medical Center 18124694] Future Scheduled 2021-02-26 IMM Influenza Seasonal [facility] Test 00:00:00 Feb to July (>/= 19 yrs) [code = IMM Influenza Seasonal Feb to July (>/= 19 yrs)] Future Scheduled 2021-01-[address] [facility] - Test 00:00:00 (Season Ended) [code = Medic al Center INFLUENZA VACCINE (Season Ended)] Future Scheduled 2020-05-[address] [facility] - Test 00:00:00 (12+) [code = Medical Center DEPRESSION SCREENING (12+)] Future Scheduled 2019-02-[address] [...] malignant neoplasm of colon (procedure) [code = 123770502] Future Scheduled 2006 SHINGLES VACCINES ([address] [facility] - Test 00:00:00 of 2) [code = SHINGLES Medic al Center VACCINES (1 of 2)] Future Scheduled 1972 COVID-19 Vaccine (1) [facility] Test 00:00:00 [code = COVID-19 Vaccine (1)] Encounters Start End Encounter Admission Attending Care Care Encounter Source Date/Time Date/Time Type Type Clinicians Facility Department ID 2020-08-19 2020-08-19 Emergency [facility] [id number] 07:35:00 10:07:00 Wendy Modi [id number] [place] [id number] [place] [id number] 2020-08-19 2020-08-19 Orders Doctor MONAE [id number] 00:00:00 00:00:00 Only Unassigned, TOY [id number] [facility] [id number] 2020-08-03 2020-08-[address] [facility] [id number] 00:00:00 00:00:00 Ilan Modi [id number] [place] [id number] Professio [phone] [address] 2020-06-25 2020-06-25 Emergency [facility] [id number] 17:04:00 23:09:00 Carolina Modi [id number] [place] [id number] [place] [id number] [id number] 2020-06-25 2020-06-25 Orders Doctor MONAE [id number] 00:00:00 00:00:00 Only Unassigned, TOY [id number] [facility] [id number] 2020-06-22 2020-06-[address] [facility] [id number] 00:00:00 00:00:00 Ilan Modi [id number] [place] [id number] Professio [phone] [address] 2019-09-11 2019-09-[address] [facility] [id number] 00:00:00 00:00:00 Ilan Modi [id number] [place] [id number] Professio [phone] [address] 2019-02-08 2019-02-08 Orders Doctor MONAE [id number] 00:00:00 00:00:00 Only Unassigned, TOY [id number] [place] [facility] [id number] 2019-01-31 2019-01-31 Orders Doctor MONAE [id number] 00:00:00 00:00:00 Only Unassigned, TOY [id number] [place] [facility] [id number] 2019-01-23 2019-01-23 Telephone Brenda Rod [facility] [id number] 00:00:00 00:00:00 C Ly [id number] [place] [id number] Professio [phone] [address] 2019-01-21 2019-01-21 Office Brenda Rod [facility] [id number] 15:52:08 16:26:09 Visit C Ly [id number] [place] [id number] Professio [phone] [address] 2019-01-17 2019-01-17 Orders Doctor LICONA [id number] 00:00:00 00:00:00 Only Unassigned, TOY [id number] [place] [facility] [id number] 2019-01-02 2019-01-02 Orders Doctor LICONA [id number] 00:00:00 00:00:00 Only Unassigned, TOY [id number] [place] [id number] 2018-12-28 2018-12-28 Orders Doctor MONAE [id number] 00:00:00 00:00:00 Only Unassigned, TOY [id number] [place] [id number] 2016-10-19 2016-10-19 Orders Doctor MONAE Lawson.[id number] 00:00:00 00:00:00 Only Unassigned, TOY [id number] [facility] [id number] Results Test Test Test Comments Results Result Source Description Time Comments MR, ABDOMEN, 2020-08- REFERRING MD: WITH 07 CHERELLE LEROYT 16:24:00 Include Abdominal VesselsUnlisted [facility] - Reason for Exam - MEDICAL CENTERName: Click Yes and Enter KALEN GRIGGS LUIS Reason : 1955 Below->YesUnlisted Sex: Reason for M Exam->awaiting organ transplant, cirrhosis, *FINAL REPORT screening for PATIENT ID: cancer [id number] TECHNIQUE: MRI of the abdomen WITHOUT and WITH intravenous contrast. INDICATION: Unlisted Reason for Examawaiting organ transplant, cirrhosis, screening for cancer. COMPARISON: MRI from 03/13/2020. FINDINGS: LOWER THORAX: Moderate sized right pleural effusion. LIVER: Nodular, cirrhotic liver. Observations as follow:*An arterially enhancing observation in segment VIII measures 2.3 cm on axial arterial phase image 27, previously 1.7 cm. This washes out on 60 second phase imaging. LI-RADS 5, OPTN 5B*An arterially enhancing observation in segment III measures 1.4 cm on axial arterial phase image 31, previously 0.8 cm. There is washout and pseudocapsule formation. LI-RADS 5, OPTN 5A*An area of washout in segment III measures 1.7 cm on axial delayed phase image 32. No corresponding arterial phase hyperenhancement. LI-RADS 3 A few additional, scattered, wedge-shaped areas of arterial phase hyperenhancement the periphery the liver are likely perfusional. A nonenhancing structure in segment V measures 0.9 cm and is most consistent with a cyst. BILIARY: The gallbladder wall is mildly thickened, likely related to the liver disease. No biliary ductal dilatation or filling defect.SPLEEN: 16.1 cm splenomegaly.PANCREA S: No focal masses or ductal dilatation. ADRENALS: No adrenal nodules.KIDNEYS/URET ERS: No hydronephrosis or solid mass lesions. PERITONEUM/RETROPERI TONEUM: Small volume ascites. An umbilical hernia contains ascites.LYMPH NODES: No lymphadenopathy.VESS ELS: Small esophageal and moderate sized paraesophageal varices. GI TRACT: No distention or wall thickening. 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 BONES AND SOFT TISSUES: Bilateral gynecomastia. IMPRESSION: 1.Two LI-RADS 5/OPTN 5 observations in the liver measure 2.3 cm in segment VIII and 1.4 cm in segment III. 2.Cirrhosis with sequelae of portal hypertension including ascites, splenomegaly, and esophageal varices. 3.Moderate sized right pleural effusion Signed: Tawanda Alvarez MDReport Verified Date/Time: 09/02/2020 16:24:23 abdomen 2020-08- Interface, External [facility] with and 07 Ris In - 09/02/2020 [facility] - without 16:24:00 4:26 PM CDTFINAL Medical contrast REPORT PATIENT ID: Center [id number] TECHNIQUE: MRI of the abdomen WITHOUT and WITH intravenous contrast. INDICATION: Unlisted Reason for Examawaiting organ transplant, cirrhosis, screening for cancer. COMPARISON: MRI from 03/13/2020. FINDINGS: LOWER THORAX: Moderate sized right pleural effusion. LIVER: Nodular, cirrhotic liver. Observations as follow:*An arterially enhancing observation in segment VIII measures 2.3 cm on axial arterial phase image 27, previously 1.7 cm. This washes out on 60 second phase imaging. LI-RADS 5, OPTN 5B*An arterially enhancing observation in segment III measures 1.4 cm on axial arterial phase image 31, previously 0.8 cm. There is washout and pseudocapsule formation. LI-RADS 5, OPTN 5A*An area of washout in segment III measures 1.7 cm on axial delayed phase image 32. No corresponding arterial phase hyperenhancement. LI-RADS 3 A few additional, scattered, wedge-shaped areas of arterial phase hyperenhancement the periphery the liver are likely perfusional. A nonenhancing structure in segment V measures 0.9 cm and is most consistent with a cyst. BILIARY: The gallbladder wall is mildly thickened, likely related to the liver disease. No biliary ductal dilatation or filling defect.SPLEEN: 16.1 cm splenomegaly.PANCREA S: No focal masses or ductal dilatation. ADRENALS: No adrenal nodules.KIDNEYS/URET ERS: No hydronephrosis or solid mass lesions. PERITONEUM/RETROPERI TONEUM: Small volume ascites. An umbilical hernia contains ascites.LYMPH NODES: No lymphadenopathy.VESS ELS: Small esophageal and moderate sized paraesophageal varices. GI TRACT: No distention or wall thickening. 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 BONES AND SOFT TISSUES: Bilateral gynecomastia. IMPRESSION: 1.Two LI-RADS 5/OPTN 5 observations in the liver measure 2.3 cm in segment VIII and 1.4 cm in segment III. 2.Cirrhosis with sequelae of portal hypertension including ascites, splenomegaly, and esophageal varices. 3.Moderate sized right pleural effusion Signed: Tawanda Alvarez MDReport Verified Date/Time: 09/02/2020 16:24:23 Alpha fetoprotein (AFP), tumor marker 2020-09-01 16:57:00 Test Item Value Reference Range Interpretation Comme nts Alpha-Fetoprotein (test code <2.0 See_Comment [Automated message] The = 1834-1) system which ge nerated this result tra nsmitted reference range : <10.0 ng/mL. The refe rence range was not used to interpret this result as normal/abnormal . MADALYN (test code = MADALYN) Obstetrics Gynecology Physician ID - BS Lab Interpretation (test Normal code = 49505-5) [facility] HospitalALPHA FETOPROTEIN (AFP), TUMOR [id number] 16:57:00 Test Item Value Reference Range Interpretation Comments ALPHA-FETOPROTEIN (BEAKER) (test code < ng/mL <10.0 = 1094) Obstetrics Gynecology Physician ID - BSBasic Metabolic [id number] 14:50:00 Test Item Value Reference Range Interpretation Comments Sodium (test code = 138 meq/L 366-495 0389-2) Potassium (test code 4.1 meq/L 3.5-5.1 = 2823-3) Chloride (test code 107 meq/L 98-107 = 2075-0) CO2 (test code = 22 meq/L 22-29 8-9) BUN (test code = 7 mg/dL 7-21 3094-0) Creatinine (test 0.62 mg/dL 0.57-1.25 code = 2160-0) Glucose (test code = 78 mg/dL 70-105 2345-7) Calcium (test code = 8.2 mg/dL 8.4-10.2 L 15735-3) EGFR (test code = 131 mL/min/1.73 [place] [address]-7) m NOT ACCURATE CREATININE CLEARANCE IN PREDICTING GLOMERULAR FILTRATION RATE . ESTIMATED GFR I S NOT APPLICABLE FOR DIALYSIS PATIENTS. MADALYN (test code = Obstetrics Gynecology Physician ID - MADALYN) EDASISpecimen slightly icteric Lab Interpretation Abnormal (test code = 22585-6) [facility] HospitalHepatic function [id number] 14:50:00 Test Item Value Reference Range Interpretation Comments Protein, Total (test 6.5 See_Comment [Autom ated code = 2885-2) message] The system which generated this result transmitted reference range : 6.0 - 8.3 gm/dL . The reference range was not used to interpret this result as normal/abnormal . Albumin (test code = 2.9 g/dL 3.5-5 L 49799-5) Total Bilirubin 3.1 mg/dL 0.2-1.2 H (test code = 1974-2) Bilirubin, Direct 1.2 mg/dL 0.1-0.5 H (test code = 1967-7) Alkaline Phosphatase 154 U/L 40-150 H (test code = 6768-6) AST (test code = 45 U/L 5-34 H 1920-8) ALT (test code = 26 U/L 6-55 1742-6) MADALYN (test code = Obstetrics Gynecology Physician ID - MADALYN) EDASISpecimen slightly icteric Lab Interpretation Abnormal (test code = 32466-0) [facility] HospitalBASIC METABOLIC [id number] 14:50:00 Test Item Value Reference Range Interpretation Comments SODIUM (BEAKER) 138 meq/L 136-145 (test code = 381) POTASSIUM (BEAKER) 4.1 meq/L 3.5-5.1 (test code = 379) CHLORIDE (BEAKER) 107 meq/L 98-107 (test code = 382) CO2 (BEAKER) (test 22 meq/L 22-29 code = 355) BLOOD UREA NITROGEN 7 mg/dL 7-21 (BEAKER) (test code = 354) CREATININE (BEAKER) 0.62 mg/dL 0.57-1.25 (test code = 358) GLUCOSE RANDOM 78 mg/dL 70-105 (BEAKER) (test code = 652) CALCIUM (BEAKER) 8.2 mg/dL 8.4-10.2 L (test code = 697) EGFR (BEAKER) (test 131 mL/min/1.73 ESTIM ATED GFR IS code = 1092) sq m NOT ACCURATE CREATININE CLEARANCE IN PREDICTING GLOMERULAR FILTRATION RATE . ESTIMATED GFR I S NOT APPLICABLE FOR DIALYSIS PATIEN TS. Obstetrics Gynecology Physician ID - EDASISpecimen slightly ictericHEPATIC FUNCTION [id number] 14:50:00 Test Item Value Reference Range Interpretation Comments TOTAL PROTEIN (BEAKER) (test code = 6.5 gm/dL 6.0-8.3 770) ALBUMIN (BEAKER) (test code = 1145) 2.9 g/dL 3.5-5.0 L BILIRUBIN TOTAL (BEAKER) (test code 3.1 mg/dL 0.2-1.2 H = 377) BILIRUBIN DIRECT (BEAKER) (test 1.2 mg/dL 0.1-0.5 H code = 706) ALKALINE PHOSPHATASE (BEAKER) (test 154 U/L 40-150 H code = 346) AST (SGOT) (BEAKER) (test code = 45 U/L 5-34 H 353) ALT (SGPT) (BEAKER) (test code = 26 U/L 6-55 347) Obstetrics Gynecology Physician ID - EDASISpecimen slightly ictericCBC with platelet count + automated [id number] 14:45:00 Test Item Value Reference Range Interpretation Comments WBC (test code = 6690-2) 5.4 See_Comment [A utomated message] The system [employer] generated this result transmitted ref erence range: 3.5 - 10 .5 K/L. The refe rence range was not u sed to interpret this result as normal/abnor mal. RBC (test code = 789-8) 4.10 See_Comment L [Au tomated message] The system [employer] generated this result transmitted ref erence range: 4.63 - 6 .08 M/L. The refe rence range was not u sed to interpret this result as normal/abnor mal. MCHC (test code = 786-4) 28.5 See_Comment L [A utomated message] The system [employer] generated this result transmitted ref erence range: 32.3 - 3 6.5 GM/DL. The refe rence range was not u sed to interpret this result as normal/abnor mal. Hematocrit (test code = 26.7 % 40.1-51 L 4544-3) MCV (test code = 787-2) 65.1 fL 79-92.2 L MCH (test code = 785-6) 18.5 pg 25.7-32.2 L RDW (test code = 788-0) 22.2 % 11.6-14.4 H Platelets (test code = 83 See_Comment L [Aut omated message] 777-3) The system [employer] generated this result transmitted ref erence range: 150 - 45 0 K/CU MM. The referen ce range was not u sed to interpret this result as normal/abnor mal. MPV (test code = Unable [place] 06980-2) to abnormal [place] telet population distribution. nRBC (test code = 413) 0 See_Comment [Aut omated message] The system [employer] generated this result transmitted ref erence range: 0 - 0 /1 00 WBC. The refere nce range was not u sed to interpret this result as normal/abnor mal. % Neutros (test code = 59 % 429) % Lymphs (test code = 26 % 430) % Monos (test code = 11 % 431) % Eos (test code = 432) 2 % % Baso (test code = 437) 1 % # Neutros (test code = 3.18 See_Comment [Aut omated message] 670) The system [employer] generated this result transmitted ref erence range: 1.78 - 5 .38 K/L. The refe rence range was not u sed to interpret this result as normal/abnor mal. # Lymphs (test code = 1.42 See_Comment [Auto mated message] 414) The system [employer] generated this result transmitted ref erence range: 1.32 - 3 .57 K/L. The refe rence range was not u sed to interpret this result as normal/abnor mal. # Monos (test code = 0.61 See_Comment [Autom ated message] 415) The system [employer] generated this result transmitted ref erence range: 0.30 - 0 .82 K/L. The refe rence range was not u sed to interpret this result as normal/abnor mal. # Eos (test code = 416) 0.11 See_Comment [Au tomated message] The system [employer] generated this result transmitted ref erence range: 0.04 - 0 .54 K/L. The refe rence range was not u sed to interpret this result as normal/abnor mal. # Baso (test code = 417) 0.05 See_Comment [A utomated message] The system [employer] generated this result transmitted ref erence range: 0.01 - 0 .08 K/L. The refe rence range was not u sed to interpret this result as normal/abnor mal. Immature 0 % 0-1 Granulocytes-Relative (test code = 2801) Lab Interpretation (test Abnormal code = 44238-6) [facility] W/PLT COUNT & AUTO [id number] 14:45:00 Test Item Value Reference Range Interpretation Comments WHITE BLOOD CELL COUNT 5.4 K/ L 3.5-10.5 (BEAKER) (test code = 775) RED BLOOD CELL COUNT 4.10 M/ L 4.63-6.08 L (BEAKER) (test code = 761) HEMOGLOBIN (BEAKER) 7.6 GM/DL 13.7-17.5 L (test code = 410) HEMATOCRIT (BEAKER) 26.7 % 40.1-51.0 L (test code = 411) MEAN CORPUSCULAR VOLUME 65.1 fL 79.0-92.2 L (BEAKER) (test code = 753) MEAN CORPUSCULAR 18.5 pg 25.7-32.2 L HEMOGLOBIN (BEAKER) (test code = 751) MEAN CORPUSCULAR 28.5 GM/DL 32.3-36.5 L HEMOGLOBIN CONC (BEAKER) (test code = 752) RED CELL DISTRIBUTION 22.2 % 11.6-14.4 H WIDTH (BEAKER) (test code = 412) PLATELET COUNT (BEAKER) 83 K/CU MM 150-450 L (test code = 756) MEAN PLATELET VOLUME Unable to report due (BEAKER) (test code = to abn ormal Platelet 754) population distribution. NUCLEATED RED BLOOD 0 /100 WBC 0-0 CELLS (BEAKER) (test code = 413) NEUTROPHILS RELATIVE 59 % PERCENT (BEAKER) (test code = 429) LYMPHOCYTES RELATIVE 26 % PERCENT (BEAKER) (test code = 430) MONOCYTES RELATIVE 11 % PERCENT (BEAKER) (test code = 431) EOSINOPHILS RELATIVE 2 % PERCENT (BEAKER) (test code = 432) BASOPHILS RELATIVE 1 % PERCENT (BEAKER) (test code = 437) NEUTROPHILS ABSOLUTE 3.18 K/ L 1.78-5.38 COUNT (BEAKER) (test code = 670) LYMPHOCYTES ABSOLUTE 1.42 K/ L 1.32-3.57 COUNT (BEAKER) (test code = 414) MONOCYTES ABSOLUTE 0.61 K/ L 0.30-0.82 COUNT (BEAKER) (test code = 415) EOSINOPHILS ABSOLUTE 0.11 K/ L 0.04-0.54 COUNT (BEAKER) (test code = 416) BASOPHILS ABSOLUTE 0.05 K/ L 0.01-0.08 COUNT (BEAKER) (test code = 417) IMMATURE 0 % 0-1 GRANULOCYTES-RELATIVE PERCENT (BEAKER) (test code = 2801) Pro-time/[id number] 14:40:00 Test Item Value Reference Interpretation Comments Range Protime (test code = 17.6 See_Comment H [Autom ated 5902-2) message] The system which generated this result transmitted reference range : 11.9 - 14.2 seconds. The reference range was not used to interpret this result as normal/abnormal . INR (test code = 1.49 See_Comment [Automated 6301-6) message] The system which generated this result transmitted reference range : <=5.90. The reference range was not used to interpret this result as normal/abnormal . MADALYN (test code = Effective 10/24/2018: MADALYN) PT Reference Range ChangeNew: 11.9-14.2 Previous: 11.7-14.7 RECOMMENDED COUMADIN/WARFARIN INR THERAPY RANGESSTANDARD DOSE: 2.0-3.0 Includes: PROPHYLAXIS for venous thrombosis, systemic embolization; TREATMENT for venous thrombosis and/or pulmonary embolus.HIGH RISK: Target INR is 2.5-3.5 for patients wiht mechanical heart valves. Lab Interpretation Abnormal (test code = 81407-6) [facility] HospitalPROTHROMBIN TIME/[id number] 14:40:00 Test Item Value Reference Range Interpretation Comments PROTIME (BEAKER) 17.6 seconds 11.9-14.2 H (test code = 759) INR (BEAKER) (test 1.49 See_Comment [Automat ed message] code = 370) The system [employer] generated this result transmitted ref erence range: <=5.90. The reference range was not used to int erpret this result as normal/abnormal . Effective 10/24/2018: PT Reference Range ChangeNew: 11.9-14.2 Previous: 11.7- 14.7RECOMMENDED COUMADIN/WARFARIN INR THERAPY RANGESSTANDARD DOSE: 2.0-3.0 Includes: PROPHYLAXIS for venous thrombosis, systemic embolization; TREATMENT for venous thrombosis and/or pulmonary embolus.HIGH RISK: Target INR is2.5-3.5 for patients wiht mechanical heart valves.Comprehensive metabolic panel 2020-06-13 07:24:00 Test Item Value Reference Interpretation Comments Range Glucose (test code 134 mg/dL 65-139 N on-fasting = ) reference inter holly BUN (test code = 7 mg/dL 20100929) Creatinine (test 0.66 mg/dL 0.7-1.25 L For patient s >49 code = 5935068) years of age , the reference limit for Creatinine is approximately 1 3% higher for peopleidentifie d as -Christelle n. eGFR If NonAfricn 103 See_Comment [Automate d message] Am (test code = The system w [facility] 4255454) generated this result transmit lisa reference range : > OR = 60 mL/min/1.73m2. The reference range was not used to interpret this result as normal/abnormal . eGFR If Africn Am 119 See_Comment [Automate d message] (test code = The system [employer] 6749510) generated this result transmit lisa reference range : > OR = 60 mL/min/1.73m2. The reference range was not used to interpret this result as normal/abnormal . BUN/Creatinine 11 See_Comment [Automated m essage] Ratio (test code = The [employer] which ) generated this result transmit lisa reference range : 6 - 22 (calc). The reference range was not used to interpret this result as normal/abnormal . Sodium (test code = 139 mmol/L 135-637 9112480) Potassium, Serum 3.6 mmol/L 3.5-5.3 (test code = 20101014) Chloride (test code 107 mmol/L 98-110 = 7556103) Carbon Dioxide, 28 mmol/L 20-32 Total (test code = ) Calcium, Serum 8.1 mg/dL 8.6-10.3 L (test code = 20100926) Protein, Total, 6.2 g/dL 6.1-8.1 Serum (test code = 20101003) Albumin (test code 2.9 g/dL 3.6-5.1 L = 3536235) GLOBULIN (QUEST) 3.3 See_Comment [Automated message] (test code = The system [employer] 8992094) generated this result transmit lisa reference range : 1.9 - 3.7 g/dL (jeevan c). The reference r mela was not used to interpret this result as normal/abnormal . Albumin Globulin 0.9 See_Comment L [Automated message] Ratio (test code = The [employer] which 1759-0) generated this result transmit lisa reference range : 1.0 - 2.5 (calc). T he reference range was not used to interpret this result as normal/abnormal . Bilirubin, Total 1.7 mg/dL 0.2-1.2 H (test code = 20101005) Alkaline 140 U/L 35-144 Phosphatase, S (test code = 6768-6) AST (SGOT) (test 29 U/L 10-35 code = 20101009) ALT (SGPT) (test 15 U/L 9-46 code = ) MADALYN (test code = FASTING:NOFASTING MADALYN) : NO RAC (test code = Performing RAC) Organization Information: Site ID: [facility] Name: [facility] Address: [address] [place], [place] [address] Director: Terrell Romeo Lab Interpretation Abnormal (test code = 46958-5) [facility] HospitalBilirubin, [id number] 07:24:00 Test Item Value Reference Range Interpretation Comments Bilirubin, Total 1.7 mg/dL 0.2-1.2 H (test code = 20101005) Bilirubin, Direct 0.6 mg/dL See_Comment H [Automate d (test code = message] The 20101017) system which generated this result transmitted reference range : < OR = 0.2. The reference range was not used to interpret this result as normal/abnormal . Bilirubin, Indirect 1.1 See_Comment [Automa lisa (test code = message] The ) system which generated this result transmitted reference range : 0.2 - 1.2 mg/dL (calc). The reference range was not used to interpret this result as normal/abnormal . MADALYN (test code = FASTING:NOFASTING: MADALYN) NO RAC (test code = Performing RAC) Organization Information: Site ID: A Name: [facility] Address: [address] [place] [id number] Director: Terrell Romeo Lab Interpretation Abnormal (test code = 52435-9) [facility] HospitalCBC with platelet count + automated [id number] 07:24:00 Test Item Value Reference Interpretation Comments Range WBC (test code = 4.3 See_Comment [Automated message] ) The system [employer] generated this result transmit lisa reference range : 3.8 - 10.8 Thousand /uL. The reference r mela was not used to interpret this result as normal/abnormal . RBC (test code = 3.91 See_Comment L [Automated message] 789-8) The system [employer] generated this result transmit lisa reference range : 4.20 - 5.80 Million/uL. The reference range was not used to interpret this result as normal/abnormal . Hemoglobin (test 7.6 g/dL 13.2-17.1 L code = ) Hematocrit (test 26.3 % 38.5-50 L code = ) MCV (test code = 67.3 fL 80-100 L ) MCH (test code = 19.4 pg 27-33 L ) MCHC (test code = 28.9 g/dL 32-36 L ) RDW (test code = 17.6 % 11-15 H ) Platelets (test 66 See_Comment L Review of th e code = ) peripheral s mear revealsdecrease d numbers of platelets. [Automated mess age] The system [employer] generated this result transmit lisa reference range : 140 - 400 Thousand/ uL. The reference r mela was not used to interpret this result as normal/abnormal . MPV (test code = 7.5-12.5 Due to plat elet or 4135508) RBC variability in size or shapeth e result cannot b e reported accura tely. # Neutros (test 172 See_Comment [Automated message] code = 2508646) The system [employer] [facility] generated this result transmit lisa reference range : 1,500 - 7,800 cells/uL. The reference range was not used to interpret this result as normal/abnormal . # Lymphs (test code 1724 See_Comment [Automa lisa message] = 731-0) The system [employer] generated this result transmit lisa reference range : 850 - 3,900 cells/u L. The reference r mela was not used to interpret this result as normal/abnormal . # Monos (test code 632 See_Comment [Automat ed message] = ) The system [employer] generated this result transmit lisa reference range : 200 - 950 cells/uL. The reference range was not used to interpret this result as normal/abnormal . # Eos (test code = 159 See_Comment [Automat ed message] 1-2) The system [employer] generated this result transmit lisa reference range : 15 - 500 cells/uL. The reference range was not used to interpret this result as normal/abnormal . # Baso (test code = 60 See_Comment [Automa lisa message] 984-7) The system [employer] generated this result transmit lisa reference range : 0 - 200 cells/uL. T he reference range was not used to interpret this result as normal/abnormal . % Neutros (test 40.1 % code = ) % Lymphs (test code 40.1 % = 20191219) % Monos (test code 14.7 % = ) % Eos (test code = 3.7 % 20191217) % Baso (test code = 1.4 % 20191218) Comment(s) (test Polychromas ia 1 code = 5878753) +Microcytosi s 1 +Hypochromasia 1 +Anisocytosis 1 + MADALYN (test code = FASTING:NOFASTING MADALYN) : NO RAC (test code = Performing RAC) Organization Information: Site ID: [facility] Name: [facility] Address: [address] [place] [phone] Director: Terrell Romeo Lab Interpretation Abnormal (test code = 70123-9) [facility] HospitalMISCELLANEOUS LAB [id number] 12:02:00 Test Item Value Reference Range Interpretation Comments SCAN RESULT (test code = 1859426) Miscellaneous lab [id number] 12:02:00Scan ResultQUEST NON-INTERFACED LABCHI [facility] HospitalARS-[facility] ([facility])2020-03-13 20:20:00 Test Item Value Reference Range Interpretation Comments SARS-COV2/RT-PCR Negative Not Detected, (test code = Negative, See 35201-6) external report for linked test SARS-COV-2 [facility] PERFORMING LAB (test code = 29559-7) MADALYN (test code = Negative result for [...] of the Act. Fact Sheet for Healthcare Providers:https://www.[employer]/sites/default/f isaias/product/documents/F act_Sheet_HC_Providers_L wcx_XLDJ-UhR-1.pdf Fact Sheet for Healthcare Patients:https://www.[employer]/sites/default/fi les/product/documents/Fa ct_Sheet_Patients_Lyra_S ARS-CoV-2.pdf Performing Laboratory:[facility] [place] [address] [facility] ([facility])2020-03-13 20:20:00 Test Item Value Reference Range Interpretation Comments SARS-COV2/RT-PCR (test Negative Not Detected, Negative, code = 3390476) See external report for linked test SARS-COV-[address] [facility] (test code = 7356810) Negative result for this test determines that [...] 564(g) of the Act.Fact Sheet for Healthcare Providers:https://www.[employer]/sites/default/files/product/documents/Fact_Shee t_RI_Loshjrgdh_Vnuj_PMUU-RuA-3.pdfFact Sheet for Healthcare Patients:https://www.[employer]/sites/default/files/product/ documents/Qvbv_Dvjaq_Rcxhlwjz_Tvtp_BCJT-RpY-3.pdfPerforming Laboratory:[facility], [place] [address]GL, ABDOMEN, WITH 2020-03-13 14:43:00REFERRING : CHERELLE SALVADOR Include Abdominal VesselsUnlisted Reason for Exam - Click Yes and EnterReason Below- >YesUnlisted Reason for Exam->listed for liver transplant, screening for malignancyM[facility]AIN [facility]IEW [facility]USName: [facility]AL[facility] : 1955 Sex: MFINAL REPORT [...] mass.3. Trace ascites. Signed: Brenda De Dios [facility] Verified Date/Time: 03/13/2020 14:43:24 ALPHA FETOPROTEIN (AFP), TUMOR [id number] 13:25:00 Test Item Value Reference Range Interpretation Comments ALPHA-FETOPROTEIN (BEAKER) (test code < ng/mL <10.0 = 1094) Obstetrics Gynecology Physician ID - AAHAMIDCOMPREHENSIVE METABOLIC [id number] 12:54:00 Test Item Value Reference Range Interpretation [...] 347) EGFR (BEAKER) (test 86 mL/min/1.73 ESTIMA LISA GFR IS code = 1092) sq m NOT ACCURATE CREATININE CLEARANCE IN PREDICTING GLOMERULAR FILTRATION RATE . ESTIMATED GFR I S NOT APPLICABLE FOR DIALYSIS PATIEN TS. Obstetrics Gynecology Physician ID - AAHAMIDXR dxa bone density [id number] 12:46:00Interface, External Ris In - 03/13/2020 12:51 PM CDTFINAL REPORT Bone densitystudy, 03/13/2020 Clinical History: Screening Bone mineral density measurementLumbar spine1.110 gm/on2Lrphlrw neck0.918 gm/cm2 Standard deviation from young adult [...] one or more fragility fractures Signed: Antonio Riveraeport Verified Date/Time: 03/13/2020 12:46:53 Reading Location: [address] Reading [facility]ONE DENSITY [id number] 12:46:00REFERRING MD: CHERELLE SALVADOR Reason for Exam:->on liver transplant waiting list [facility] GRIGGS : 1955 Sex: MFINAL REPORT Bone density study, 03/13/2020 Clinical History: Screening Bone mineral density measurementLumbar spine1.110 gm/yq6Tzkvnpt neck0.918 gm/cm2 Standard deviation from young adult [...] MDReport Verified Date/Time: 03/13/2020 12:46:53 Reading Location: [address] Reading Room BILIRUBIN, [id number] 12:38:00 Test Item Value Reference Range Interpretation Comments BILIRUBIN DIRECT (BEAKER) (test 1.0 mg/dL 0.1-0.5 H code = 706) Obstetrics Gynecology Physician ID - AAHAMIDPROTHROMBIN TIME/[id number] 12:23:00 Test Item Value Reference Range Interpretation [...] mechanical heart valves.CBC W/PLT COUNT & AUTO [id number] 12:16:00 Test Item Value Reference Range Interpretation [...] = No growth in 5 days 6463-4) [facility] [id number] 20:00:00 Test Item Value Reference Range Interpretation Comments CULTURE (BEAKER) (test No growth in 5 days code = 1095) BLOOD [id number] 20:00:00 Test Item Value Reference Range Interpretation Comments CULTURE (BEAKER) (test No growth in 5 days code = 1095) POC-Glucose [id number] 07:47:00 Test Item Value Reference Range Interpretation Comments POC-Glucose Meter (test 121 mg/dL 70-110 H : TE STED AT [facility] code = 1538) [address] [facility], 770 30: Obstetrics Gynecology Physician/Techni zaire ID = [id number] for DUKES, RADHA Lab Interpretation (test Abnormal code = 85852-1) [facility] HospitalPO[facility]UCOSE [id number] 07:47:00 Test Item Value Reference Range Interpretation Comments POC-GLUCOSE METER 121 mg/dL 70-110 H : TESTED A T [facility] 6720 (BEAKER) (test code = [facility], 1538) 12940: Obstetrics Gynecology Physician/Techni zaire ID = [id number] for RADHA GARVEY HEPATIC FUNCTION [id number] 07:24:00 Test Item Value Reference Range Interpretation [...] (test code = 25 U/L 6-55 347) Obstetrics Gynecology Physician ID - KRISHNA ZAVALETAkevinkaz slightly ictericPOCT-GLUCOSE [id number] 22:18:00 Test Item Value Reference Range Interpretation Comments POC-GLUCOSE METER 143 mg/dL 70-110 H : TESTED A T [facility] 6720 (BEAKER) (test code = [facility], 1538) 966[address]: Obstetrics Gynecology Physician/Techni zaire ID = [id number] for CA RBAJAL, ANU POCT-GLUCOSE [id number] 17:24:00 Test Item Value Reference Range Interpretation Comments POC-GLUCOSE METER 214 mg/dL 70-110 H : TESTED A T [facility] 6720 (BEAKER) (test code = [facility], 1538) 9[address]: Obstetrics Gynecology Physician/Techni zaire ID = [id number] for SA NTOS, WADE POCT-GLUCOSE [id number] 13:32:00 Test Item Value Reference Range Interpretation Comments POC-GLUCOSE METER 127 mg/dL 70-110 H : TESTED A T [facility] 6720 (BEAKER) (test code = [facility], 1538) 12810: Obstetrics Gynecology Physician/Techni zaire ID = [id number] for WADE MCMULLEN POCT-GLUCOSE [id number] 12:08:00 Test Item Value Reference Range Interpretation Comments POC-GLUCOSE METER 124 mg/dL 70-110 H : TESTED A T [facility] 6720 (BEAKER) (test code = [facility], 1538) 40892: Obstetrics Gynecology Physician/Techni zaire ID = [id number] for CHARI RAZO POCT-GLUCOSE [id number] 08:16:00 Test Item Value Reference Range Interpretation Comments POC-GLUCOSE METER 117 mg/dL 70-110 H : TESTED A T [facility] 6720 (BEAKER) (test code = [facility], 1538) 678[address]: Obstetrics Gynecology Physician/Techni zaire ID = [id number] for WADE MCMULLEN BASIC METABOLIC [id number] 06:13:00 Test Item Value Reference Range Interpretation [...] S NOT APPLICABLE FOR DIALYSIS PATIEN TS. Obstetrics Gynecology Physician ID - PIAYA LSpecimen slightly ictericHEPATIC FUNCTION [id number] 06:13:00 Test Item Value Reference Range Interpretation [...] (test code = 27 U/L 6-55 347) Obstetrics Gynecology Physician ID - KRISHNA LSpecimen slightly ictericPROTHROMBIN TIME/[id number] 05:46:00 Test Item Value Reference Range Interpretation [...] mechanical heart valves.CBC W/PLT COUNT & AUTO [id number] 05:21:00 Test Item Value Reference Range Interpretation [...] PERCENT (BEAKER) (test code = 2801) POCT-GLUCOSE [id number] 22:38:00 Test Item Value Reference Range Interpretation Comments POC-GLUCOSE METER 181 mg/dL 70-110 H : TESTED A T [facility] 6720 (BEAKER) (test code = [facility], 1538) [address]271: Obstetrics Gynecology Physician/Techni zaire ID = [id number] for RON BLANCO Manual [id number] 15:15:00 Test Item Value Reference Range Interpretation Comments % Neutros (test code = 81 % 9716) % Lymphs (test code = 3 % 281) % Monos (test code = 10 % 2818) % Eos (test code = 2819) 2 % % Baso (test code = 2820) 1 % % Bands (test code = 3 % 0-10 2826) # Neutros (test code = 6.89 K/ul [...] Cells (test 1+ few code = 481) Noreen Cells (test code = 1+ few 474) Artifact (test code = Present 3432) Platelet Conc (test code Decreased = 3438) MADALYN (test code = MADALYN) Obstetrics Gynecology Physician ID - RogelioUlisses Christo comments: Slide comments: Lab Interpretation (test Abnormal code = 31781-1) [facility](CELLAVISION MANUAL DIFF)2019-12-28 15:15:00 Test Item Value [...] (BEAKER) (test 1+ few code = 481) NOREEN CELLS (BEAKER) (test code = 1+ few 474) ARTIFACT (CELLAVISION)(BEAKER) Present (test code = 3432) PLATELET CONCENTRATION Decreased (CELLAVISION)(BEAKER) (test code = 3438) Obstetrics Gynecology Physician ID - Nima Villafuerte comments: Slide comments:CBC W/PLT COUNT & AUTO [id number] 15:11:00 Test Item Value Reference Range Interpretation [...] PERCENT (BEAKER) (test code = 2801) POCT-GLUCOSE [id number] 10:15:00 Test Item Value Reference Range Interpretation Comments POC-GLUCOSE METER 178 mg/dL 70-110 H : TESTED A T [facility] 6720 (BEAKER) (test code = [facility], 1538) 72029: Obstetrics Gynecology Physician/Techni zaire ID = [id number] for DELPHINE JUAREZ POCT-GLUCOSE [id number] 09:08:00 Test Item Value Reference Range Interpretation Comments POC-GLUCOSE METER 167 mg/dL 70-110 H : TESTED A T [facility] 6720 (BEAKER) (test code = [facility], 1538) 93794: Obstetrics Gynecology Physician/Techni zaire ID = [id number] for WONG COWAN BASIC METABOLIC [id number] 07:06:00 Test Item Value Reference Range Interpretation [...] S NOT APPLICABLE FOR DIALYSIS PATIEN TS. Obstetrics Gynecology Physician ID - PIDAMIAN LSpecimen slightly ictericHEPATIC FUNCTION [id number] 07:06:00 Test Item Value Reference Range Interpretation [...] (test code = 20 U/L 6-55 347) Obstetrics Gynecology Physician ID - KRISHNA MEGHANNpecimen slightly ictericPOCT-GLUCOSE [id number] 22:05:00 Test Item Value Reference Range Interpretation Comments POC-GLUCOSE METER 216 mg/dL 70-110 H : TESTED A T [facility] 6720 (BEAKER) (test code = [facility], 1538) 30151: Obstetrics Gynecology Physician/Techni zaire ID = [id number] for DAVID TALBERT POCT-GLUCOSE [id number] 17:07:00 Test Item Value Reference Range Interpretation Comments POC-GLUCOSE METER 244 mg/dL 70-110 H : TESTED A T [facility] 6720 (BEAKER) (test code = [facility], 1538) 57268: Obstetrics Gynecology Physician/Techni zaire ID = [id number] for IB RAHIM, SERKALEM CBC W/PLT COUNT & AUTO [id number] 12:15:00 Test Item Value Reference Range Interpretation [...] PERCENT (BEAKER) (test code = 2801) POCT-GLUCOSE [id number] 11:54:00 Test Item Value Reference Range Interpretation Comments POC-GLUCOSE METER 226 mg/dL 70-110 H : TESTED A T [facility] 6720 (BEAKER) (test code = [facility], 1538) 58441: Obstetrics Gynecology Physician/Techni zaire ID = [id number] for ANUSHA SALDIVARLELuke BASIC METABOLIC [id number] 08:18:00 Test Item Value Reference Range Interpretation [...] 697) EGFR (BEAKER) (test 92 mL/min/1.73 ESTIMA LISA GFR IS code = 1092) sq m NOT ACCURATE CREATININE CLEARANCE IN PREDICTING GLOMERULAR FILTRATION RATE . ESTIMATED GFR I S NOT APPLICABLE FOR DIALYSIS PATIEN TS. Obstetrics Gynecology Physician ID - NTPPOCT-GLUCOSE [id number] 08:07:00 Test Item Value Reference Range Interpretation Comments POC-GLUCOSE METER 166 mg/dL 70-110 H : TESTED A T [facility] 6720 (BEAKER) (test code = [facility], 1538) 55186: Obstetrics Gynecology Physician/Techni zaire ID = [id number] for CHUCHO SALDIVAR HEPATIC FUNCTION [id number] 05:05:00 Test Item Value Reference Range Interpretation [...] (test code = 19 U/L 6-55 347) Obstetrics Gynecology Physician ID - GABBYASISpecimekaz yogi chowdhuryericPOCT-GLUCOSE [id number] 17:47:00 Test Item Value Reference Range Interpretation Comments POC-GLUCOSE METER 222 mg/dL 70-110 H : TESTED A T [facility] 6720 (BEAKER) (test code = [facility], 1538) 94410: Obstetrics Gynecology Physician/Techni zaire ID = [id number] for BRAXTON MORAN POCT-GLUCOSE [id number] 12:25:00 Test Item Value Reference Range Interpretation Comments POC-GLUCOSE METER 311 mg/dL 70-110 H : TESTED A T [facility] 6720 (BEAKER) (test code = [facility], 1538) 43675: Obstetrics Gynecology Physician/Techni zaire ID = [id number] for BRAXTON MORAN POCT-GLUCOSE [id number] 07:49:00 Test Item Value Reference Range Interpretation Comments POC-GLUCOSE METER 190 mg/dL 70-110 H : TESTED A T [facility] 6720 (BEAKER) (test code = [facility], 1538) 35261: Obstetrics Gynecology Physician/Techni zaire ID = [id number] for BRAXTON MORAN Vitamin B12 and [id number] 06:11:00 Test Item Value Reference Range Interpretation Comments Vitamin B12 (test 873 pg/mL 213-816 H code = 2132-9) Folate (test code = 12.30 ng/mL See_Comment [Automa lisa 2284-8) message] The system which generated this result transmit lisa reference range : >=7.00. The reference range was not used to interpret this result as normal/abnormal . MADALYN (test code = MADALYN) Obstetrics Gynecology Physician ID - EDASI Lab Interpretation Abnormal (test code = 03970-0) [facility] HospitalVITAMIN B12 AND [id number] 06:11:00 Test Item Value Reference Range Interpretation Comments VITAMIN B12 (BEAKER) (test code = 873 pg/mL 213-816 H 774) FOLATE (BEAKER) (test code = 362) 12.30 ng/mL >=7.00 Obstetrics Gynecology Physician ID - EDASIBASIC METABOLIC [id number] 05:21:00 Test Item Value Reference Range Interpretation [...] 697) EGFR (BEAKER) (test 87 mL/min/1.73 ESTIMA LISA GFR IS code = 1092) sq m NOT ACCURATE CREATININE CLEARANCE IN PREDICTING GLOMERULAR FILTRATION RATE . ESTIMATED GFR I S NOT APPLICABLE FOR DIALYSIS PATIEN TS. Obstetrics Gynecology Physician ID - EDASIHEPATIC FUNCTION [id number] 05:21:00 Test Item Value Reference Range Interpretation [...] (test code = 19 U/L 6-55 347) Obstetrics Gynecology Physician ID - EDASICBC W/PLT COUNT & AUTO [id number] 05:12:00 Test Item Value Reference Range Interpretation [...] 0-1 H PERCENT (BEAKER) (test code = 3711) PROTHROMBIN TIME/[id number] 04:56:00 Test Item Value Reference Range Interpretation [...] is2.5-3.5 for patients wiht mechanical heart valves.POCT-GLUCOSE [id number] 22:11:00 Test Item Value Reference Range Interpretation Comments POC-GLUCOSE METER 195 mg/dL 70-110 H : TESTED A T [facility] 6720 (BEAKER) (test code = [facility], 1538) 00128: Obstetrics Gynecology Physician/Techni zaire ID = [id number] for WONG COWAN Hemoglobin and [id number] 16:15:00 Test Item Value Reference Range Interpretation Comments Hemoglobin (test code 8.6 See_Comment L [Auto mated = 786-4) message] The system which generated this result transmit lisa reference range : 13.7 - 17.5 GM/ DL. The reference range was not u sed to interpret th is result as normal/abnormal . Hematocrit (test code 30.2 % 40.1-51 L = 4544-3) MADALYN (test code = MADALYN) Obstetrics Gynecology Physician ID - [id number] Lab Interpretation Abnormal (test code = 25264-7) [facility] HospitalHEMOGLOBIN AND [id number] 16:15:00 Test Item Value Reference Range Interpretation Comments HEMOGLOBIN (BEAKER) (test code = 8.6 GM/DL 13.7-17.5 L 410) HEMATOCRIT (BEAKER) (test code = 30.2 % 40.1-51.0 L 411) Obstetrics Gynecology Physician ID - [id number] 13:02:00 Test Item Value Reference Range Interpretation Comments Ferritin (test code = 73.10 ng/mL 2276-4) MADALYN (test code = MADALYN) Obstetrics Gynecology Physician ID - EDASI Lab Interpretation (test Normal code = 78795-0) [facility] HospitalFERRITIN2020-07-29 13:02:00 Test Item Value Reference Range Interpretation Comments FERRITIN (BEAKER) (test code = 73.10 ng/mL 5.00-275.00 361) Obstetrics Gynecology Physician ID - EDASIIron, TIBC, % sat. (without ferritin)2019-12-25 12:42:00 Test Item Value Reference Range Interpretation Comments Iron (test code = 2498-4) 29.0 ug/dL 40-160 L TIBC (test code = 2500-7) 151 ug/dL 250-450 L Iron % Saturation (test 19 % 20-55 L code = 2502-3) MADALYN (test code = MADALYN) Obstetrics Gynecology Physician ID - EDASI Lab Interpretation (test Abnormal code = 24145-9) [facility] HospitalIRON, TIBC, % SAT. (WITHOUT FERRITIN)2019-12-25 12:42:00 Test Item Value Reference Range Interpretation Comments IRON (BEAKER) (test code = 547) 29.0 ug/dL 40.0-160.0 L TOTAL IRON BINDING CAPACITY 151 ug/dL 250-450 L (BEAKER) (test code = 769) IRON % SATURATION (2) (BEAKER) 19 % 20-55 L (test code = 2590) Obstetrics Gynecology Physician ID - EDASICOMPREHENSIVE METABOLIC [id number] 06:44:00 Test Item Value Reference Range Interpretation [...] S NOT APPLICABLE FOR DIALYSIS PATIEN TS. Obstetrics Gynecology Physician ID - EDASICBC W/PLT COUNT & AUTO [id number] 05:55:00 Test Item Value Reference Range Interpretation [...] PERCENT (BEAKER) (test code = 2801) POCT-GLUCOSE [id number] 23:39:00 Test Item Value Reference Range Interpretation Comments POC-GLUCOSE METER 307 mg/dL 70-110 H : TESTED A T [facility] 6720 (BEAKER) (test code = NICOLE Arita [facility], 1538) 30197: Obstetrics Gynecology Physician/Techni zaire ID = [id number] for Erendira Talbert (contrac t) RAD, CHEST, 1 VIEW, NON [id number] 18:52:00REFERRING : CHERELLE SALVADOR Reason for exam:->sobShould this be [...] MDReport Verified Date/Time: 12/24/2019 18:52:34 Reading Location: [facility] B1 C013W Consult Reading Room XR chest 1 view portable / [id number] 18:52:00Interface, External Ris In - 12/24/2019 6:54 [...] [place] MDReport VerifiedDate/Time: 12/24/2019 18:52:34 Reading Location: [facility] B1 C013W Consult Reading Room [facility]PLATE[facility] [id number] 10:17:00 Test Item Value Reference Range Interpretation Comments Platelet Estimate (test DECREASED ADEQUATE A code = 44298-7) MADALYN (test code = MADALYN) FASTING:YESFASTING: YES RAC (test code = RAC) Performing Organization Information: Site ID: [facility] Name[facility] Address: [address] [place] [id number] Director: Terrell Romeo Lab Interpretation (test Abnormal code = 98930-1) [facility] HospitalBASIC METABOLIC [id number] 09:29:00 Test Item Value Reference Range Interpretation [...] Specimen slightly ictericCBC W/PLT COUNT & AUTO [id number] 08:54:00 Test Item Value Reference Range Interpretation [...] (BEAKER) (test code = 2801) HEPATITIS C [id number] 12:25:00 Test Item Value Reference Range Interpretation Comments HEPATITIS C ANTIBODY (BEAKER) (test Reactive Nonreactive A code = 367) ALPHA FETOPROTEIN (AFP), TUMOR [id number] 15:45:00 Test Item Value Reference Range Interpretation Comments ALPHA-FETOPROTEIN (BEAKER) (test 2.7 ng/mL <10.0 code = 1094) BASIC METABOLIC [id number] 15:36:00 Test Item Value Reference Range Interpretation [...] 697) EGFR (BEAKER) (test 97 mL/min/1.73 ESTIMA LISA GFR IS code = 1092) sq m NOT ACCURATE CREATININE CLEARANCE IN PREDICTING GLOMERULAR FILTRATION RATE . ESTIMATED GFR I S NOT APPLICABLE FOR DIALYSIS PATIEN TS. Specimen slightly ictericHEPATIC FUNCTION [id number] 15:35:00 Test Item Value Reference Range Interpretation [...] 21 U/L 6-55 347) Specimen slightly ictericPROTHROMBIN TIME/[id number] 15:00:00 Test Item Value Reference Range Interpretation [...] mechanical heart valves.CBC W/PLT COUNT & AUTO [id number] 14:53:00 Test Item Value Reference Range Interpretation [...] code = 2801) ALPHA FETOPROTEIN (AFP), TUMOR [id number] 14:10:00 Test Item Value Reference Range Interpretation Comments ALPHA-FETOPROTEIN (BEAKER) (test 2.7 ng/mL <10.0 code = 1094) BASIC METABOLIC [id number] 13:52:00 Test Item Value Reference Range Interpretation [...] DIALYSIS PATIEN TS. Specimen slightly ictericHEPATIC FUNCTION [id number] 13:52:00 Test Item Value Reference Range Interpretation [...] 24 U/L 6-55 347) Specimen slightly ictericPROTHROMBIN TIME/[id number] 13:49:00 Test Item Value Reference Range Interpretation [...] mechanical heart valves.CBC W/PLT COUNT & AUTO [id number] 13:35:00 Test Item Value Reference Range Interpretation [...] 0-1 PERCENT (BEAKER) (test code = 2801) [id number] 14:59:00 Test Item Value Reference Range Interpretation Comments T4 TOTAL (BEAKER) (test code = 895) 5.7 ug/dL 4.9-11.7 [id number] 13:20:00 Test Item Value Reference Range Interpretation Comments T3 TOTAL (BEAKER) (test code = 656) 113 ng/dL 48-159 CYTOMEGALOVIRUS ANTIBODY, [id number] 11:11:00 Test Item Value Reference Range Interpretation Comments CYTOMEGALOVIRUS, IGG (BEAKER) Positive Negative, Equivocal A (test code = 3429) CMV IgG Result Interpretation: </= 0.8 Al Negative 0.9-1.0 Al Equivocal >/=1.1 Al PositiveCYTOMEGALOVIRUS ANTIBODY, [id number] 11:11:00 Test Item Value Reference Range Interpretation Comments CYTOMEGALOVIRUS IGM ANTIBODY Negative Negative, Equivocal (BEAKER) (test code = 3437) CMV IgM Result Interpretation: </= 0.8 Al Negative 0.9-1.0 Al Equivocal >/= 1.1 Al PositiveEBV ANTIBODY, [id number] 11:08:00 Test Item Value Reference Range Interpretation [...] ANTIGEN IGM (BEAKER) (test code = 3418) Edenilsno Taveras Viral Capsid Antigen IgM Result Interpretation: </= 0.8 Al Negative 0.9-1.0 Al Equivocal >/= 1.1 Al PositiveVARICELLA ZOSTER ANTIBODY, [id number] 11:08:00 Test Item Value Reference Range Interpretation Comments VARICELLA ZOSTER IGG (AL) (BEAKER) > (test code = 3197) VARICELLA ZOSTER RESULT INTERPRETATIONS: <=0.8 Al Nonreactive: Presumed non-immune to VZV 0.9-1.0 Al Equivocal >=1.1 Al Reactive: Presumed immune to VWXWDZES-4-[id number] 13:11:00 Test Item Value Reference Range Interpretation Comments ALPHA-1 ANTITRYPSIN (BEAKER) 155.30 mg/dL 90.00-200.00 (test code = 502) HEMOGLOBIN [id number] 13:08:00 Test Item Value Reference Range Interpretation Comments HEMOGLOBIN A1C (BEAKER) (test code = 6.4 % 4.3-6.1 H 368) HEPATITIS A ANTIBODY, [id number] 12:51:00 Test Item Value Reference Range Interpretation Comments HEPATITIS A IGG ANTIBODY (BEAKER) Reactive Nonreactive A (test code = 2797) HEPATITIS C [id number] 12:51:00 Test Item Value Reference Range Interpretation Comments HEPATITIS C ANTIBODY (BEAKER) (test Reactive Nonreactive A code = 367) [id number] 12:48:00 Test Item Value Reference Range Interpretation Comments PROSTATE SPECIFIC ANTIGEN (BEAKER) 0.4 ng/mL 0.0-4.0 (test code = 844) HIV-1 ANTIGEN WITH HIV-1/2 [id number] 12:48:00 Test Item Value Reference Range Interpretation Comments HIV-1 ANTIGEN WITH HIV 1\T\2 Nonreactive Nonreactive ANTIBODY (2) (BEAKER) (test code = 2586) VITAMIN D, 49-[id number] 12:46:00 Test Item Value Reference Range Interpretation Comments VITAMIN D 25-OH (BEAKER) (test code 7.7 ng/mL 6.6-49.9 = 2764) Effective 03/08/2017: Reference Range ChangeNew: 6.6-49.9 ng/mL Previous: 13.0-47.8 ng/mLRecommended Vitamin D Target Range: 30.0-40.0 ng/mLURINALYSIS W/ [id number] 11:55:00 Test Item Value Reference Range Interpretation [...] /LPF SOURCE(BEAKER) (test code = 2795) CRYPTOCOCCAL [id number] 11:10:00 Test Item Value Reference Range Interpretation Comments CRYPTOCOCCAL ANTIGEN, SERUM Negative Negative, Interference (BEAKER) (test code = 1828) [id number] 10:59:00 Test Item Value Reference Range Interpretation Comments THYROID STIMULATING HORMONE 2.10 uIU/mL 0.35-4.94 (BEAKER) (test code = 772) [id number] 10:59:00 Test Item Value Reference Range Interpretation Comments FERRITIN (BEAKER) (test code = 361) 69 ng/mL 5-275 [id number] 10:51:00 Test Item Value Reference Range Interpretation Comments RPR SCREEN (BEAKER) (test code = Nonreactive Nonreactive 420) [id number] 10:49:00 Test Item Value Reference Range Interpretation Comments TRANSFERRIN (BEAKER) (test code = 197 mg/dL 174-382 541) Specimen slightly [id number] 10:45:00 Test Item Value Reference Range Interpretation Comments MAGNESIUM (BEAKER) (test code = 1.5 mg/dL 1.6-2.6 L 627) [id number] 10:45:00 Test Item Value Reference Range Interpretation Comments PHOSPHORUS (BEAKER) (test code = 3.6 mg/dL 2.3-4.7 604) URIC [id number] 10:45:00 Test Item Value Reference Range Interpretation Comments URIC ACID (BEAKER) (test code = 4.8 mg/dL 2.6-7.2 773) Specimen slightly ictericCOMPREHENSIVE METABOLIC [id number] 10:45:00 Test Item Value Reference Range Interpretation [...] FOR DIALYSIS PATIEN TS. Specimen slightly ictericLIPID [id number] 10:45:00 Test Item Value Reference Range Interpretation [...] 160-189 Very High >=190 Specimen slightly ictericBILIRUBIN, [id number] 10:45:00 Test Item Value Reference Range Interpretation Comments BILIRUBIN DIRECT (BEAKER) (test 1.6 mg/dL 0.1-0.5 H code = 706) GAMMA GLUTAMYL TRANSFERASE (GGT)2018-12-20 10:45:00 Test Item Value Reference Range Interpretation Comments GAMMA GLUTAMYL TRANSFERASE (BEAKER) 33 U/L 9-64 (test code = 364) Specimen slightly [id number] 10:42:00 Test Item Value Reference Range Interpretation Comments PARTIAL THROMBOPLASTIN TIME 37.9 seconds 22.5-36.0 H (BEAKER) (test code = 760) PROTHROMBIN [id number] 10:36:00 Test Item Value Reference Range Interpretation [...] INR is2.5-3.5 for patients wiht mechanical heart valves.[id number] 10:36:00 Test Item Value Reference Range Interpretation Comments ETHANOL (BEAKER) (test code = 400) < mg/dL <=10 [id number] 10:36:00 Test Item Value Reference Range Interpretation Comments FIBRINOGEN LEVEL (BEAKER) (test 207 mg/dl 225-434 L code = 658) BLOOD GAS, [id number] 10:35:00 Test Item Value Reference Range Interpretation [...] 21.0 % CBC W/PLT COUNT & AUTO [id number] 10:25:00 Test Item Value Reference Range Interpretation [...] PERCENT (BEAKER) (test code = 2801) CALCIUM, [id number] 10:20:00 Test Item Value Reference Range Interpretation Comments CALCIUM IONIZED (BEAKER) (test 1.05 mmol/L 1.12-1.27 L code = 698) PH, BLOOD (BEAKER) (test code = 7.41 1810) RAD, MANDIBLE, MIN 4 [id number] 16:56:00REFERRING MD: CHERELLE SALVADOR Reason for Exam:->pretransplant liver evaluationFINAL REPORT TECHNIQUE: Minimum four views of the mandible. INDICATION: pretransplant liver evaluation. COMPARISON: None. FINDINGS:No fracture or dislocation.No periapical lucencies.Caries of a maxillary molar, side indeterminate.Mild degenerative disc changes at C4-C5, C5-C6, and C6-C7. IMPRESSION: No periapical lucency. Caries of a maxillary molar, side indeterminate. Signed:Tawanda Alvarez MDReport Verified Date/Time: 12/19/2018 16:56:31 Reading Location: [address] Radiology Reading Room RAD, CHEST, 2 [id number] 15:51:00REFERRING MD: CHERELLE SALVADOR Reason for Exam:->pretransplant [...] MDReport Verified Date/Time: 12/19/2018 15:51:17 Reading Location: [facility] Mammo Reading Room MR, ABDOMEN, [id number] 14:51:00 REFERRING MD: CHERELLE VEGAINAL REPORT TECHNIQUE: [...] and large esophageal varices. Signed: Tawanda Alvarez MDReport Verified Date/Time: 12/19/2018 14:51:24 Reading Location: [address] Radiology Reading Room ETHANOL 2018-12-06 11:12:00 Test Item Value Reference Range Interpretation Comments ETHANOL (BEAKER) (test code = 400) < mg/dL <=10 BASIC METABOLIC [id number] 10:56:00 Test Item Value Reference Range Interpretation [...] 697) EGFR (BEAKER) (test 98 mL/min/1.73 ESTIMA LISA GFR IS code = 1092) sq m NOT ACCURATE CREATININE CLEARANCE IN PREDICTING GLOMERULAR FILTRATION RATE . ESTIMATED GFR I S NOT APPLICABLE FOR DIALYSIS PATIEN TS. Specimen moderately ictericHEPATIC FUNCTION [id number] 10:56:00 Test Item Value Reference Range Interpretation [...] 27 U/L 6-55 347) Specimen moderately ictericPROTHROMBIN [id number] 10:40:00 Test Item Value Reference Range Interpretation [...] mechanical heart valves.CBC W/PLT COUNT & AUTO [id number] 10:38:00 Test Item Value Reference Range Interpretation [...] PERCENT (BEAKER) (test code = 2801) BLOOD [id number] 08:00:00 Test Item Value Reference Range Interpretation Comments CULTURE (BEAKER) (test No growth in 5 days code = 1095) BLOOD [id number] 08:00:00 Test Item Value Reference Range Interpretation Comments CULTURE (BEAKER) (test No growth in 5 days code = 1095) BODY FLUID CULTURE + GRAM [id number] 12:20:00 Test Item Value Reference Range Interpretation Comments CULTURE (BEAKER) (test code No growth = 1095) GRAM STAIN RESULT (BEAKER) 1+ WBCs (test code = 1123) GRAM STAIN RESULT (BEAKER) No organisms seen (test code = 15647) HEPATITIS C PCR, [id number] 08:32:00 Test Item Value Reference Range Interpretation Comments HCV RESULT COMPONENT HCV RNA not detected HCV RNA not detected (BEAKER) (test code = 2699) This test uses a Real-Time Polymerase Chain Reaction (RT-PCR) methodology and was performed using [employer] Ampliprep/KHOA TaqMan HCV test kit version 2.0 ([employer]).Reportable range for this assay is 15 - 100,000,000 IU per mL (1.18 - 8.00 Log IU/mL).POCT-GLUCOSE [id number] 08:09:00 Test Item Value Reference Range Interpretation Comments POC-GLUCOSE METER 117 mg/dL 70-[address] [facility] 67[address] ([facility]) (test code = [facility] 1538) [address] CALCIUM, [id number] 05:54:00 Test Item Value Reference Range Interpretation Comments CALCIUM IONIZED (BEAKER) (test 1.01 mmol/L 1.12-1.27 L code = 698) PH, BLOOD (BEAKER) (test code = 7.45 1810) COMPREHENSIVE METABOLIC [id number] 05:07:00 Test Item Value Reference Range Interpretation [...] APPLICABLE FOR DIALYSIS PATIEN TS. Specimen slightly [id number] 05:06:00 Test Item Value Reference Range Interpretation Comments PHOSPHORUS (BEAKER) (test code = 3.3 mg/dL 2.3-4.7 604) [id number] 05:06:00 Test Item Value Reference Range Interpretation Comments MAGNESIUM (BEAKER) (test code = 1.5 mg/dL 1.6-2.6 L 627) CBC W/PLT COUNT & AUTO [id number] 04:43:00 Test Item Value Reference Range Interpretation [...] PERCENT (BEAKER) (test code = 2801) POCT-GLUCOSE [id number] 21:35:00 Test Item Value Reference Range Interpretation Comments POC-GLUCOSE METER 154 mg/dL 70-110 H TESTED AT [place] [address] ([facility]) (test code = [place] 1538) [address] POCT-GLUCOSE [id number] 17:21:00 Test Item Value Reference Range Interpretation Comments POC-GLUCOSE METER 138 mg/dL 70-110 H TESTED AT [place] [address] ([facility]) (test code = NICOLE Arit[place] 1538) [address] POCT-GLUCOSE [id number] 13:27:00 Test Item Value Reference Range Interpretation Comments POC-GLUCOSE METER 166 mg/dL 70-110 H TESTED AT [facility] 6720 (BEAKER) (test code = [place] 1538) [address] CBC W/PLT COUNT & AUTO [id number] 12:00:00 Test Item Value Reference Range Interpretation [...] 3438) Received comment: User comments: Slide comments:POCT-GLUCOSE [id number] 11:52:00 Test Item Value Reference Range Interpretation Comments POC-GLUCOSE METER 180 mg/dL 70-[address] [facility] 67[address] (BEAKER) (test code = [facility] 1538) [address] POCT-GLUCOSE [id number] 08:09:00 Test Item Value Reference Range Interpretation Comments POC-GLUCOSE METER 115 mg/dL 70-110 H TESTED AT [place] [address] (BEAKER) (test code = [facility] 1538) [address] COMPREHENSIVE METABOLIC [id number] 05:59:00 Test Item Value Reference Range Interpretation [...] U/L 6-55 (test code = 347) EGFR ([facility]) (test 119 ESTIMATE D GFR IS code = 1092) mL/min/1.73 sq NOT ACCURA TE m CREATININE CLEARANCE IN PREDICTING GLOMERULAR FILTRATION RATE . ESTIMATED GFR I S NOT APPLICABLE FOR DIALYSIS PATIEN TS. Specimen slightly [id number] 05:57:00 Test Item Value Reference Range Interpretation Comments MAGNESIUM (BEAKER) (test code = 1.6 mg/dL 1.6-2.6 627) POCT-GLUCOSE [id number] 22:30:00 Test Item Value Reference Range Interpretation Comments POC-GLUCOSE METER 186 mg/dL 70-110 H TESTED AT [place] [address] ([facility]) (test code = NICOLE Arita [facility] 1538) [address] POCT-GLUCOSE [id number] 18:33:00 Test Item Value Reference Range Interpretation Comments POC-GLUCOSE METER 117 mg/dL 70-110 H TESTED AT [place] [address] ([facility]) (test code = NICOLE Arita [facility] 1538) [address] U/S, [id number] 17:34:00REFERRING : CHERELLE SALVADOR Please give 25g [...] 2% lidocaine anesthesia was administered. A 5 Bahamian catheter was advanced into the peritoneal cavity and 1300 cc of addison fluid was removed. The catheter was removed without immediate complication. Samples left with interstitial sent to the lab for analysis. IMPRESSION:Uncomplicated ultrasound-guided paracentesis with 1300 cc fluid removed. Signed: Mauricio Cullen MDReport Verified Date/Time: 10/29/2018 17:34:00 Reading Location: [facility] [id number] Ultrasound Reading Room VANCOMYCIN LEVEL, TROUGH 2018-10-29 17:22:00 Test Item Value Reference Range Interpretation Comments VANCOMYCIN TROUGH (BEAKER) (test 7.3 ug/mL 10.0-20.0 L code = 522) CBC W/PLT COUNT & AUTO [id number] 15:00:00 Test Item Value Reference Range Interpretation [...] = 2801) BODY FLUID CELL COUNT WITH [id number] 13:45:00 Test Item Value Reference Range Interpretation [...] Tube (test code = 2873) RESPIRATORY PANEL [id number] 12:27:00 Test Item Value Reference Range Interpretation [...] [facility] using the zhiwo Respiratory Panel. It is FDA cleared and has been verified and approved by the [facility] for clinical use on nasopharyngeal swab specimens.The performance of the FilmArrayRP has not been established in individuals who received influenza vaccine. Recent administration ofa nasal influenza vaccine may cause false positive results for Influenza A and/orInfluenza B.POCT-GLUCOSE [id number] 12:16:00 Test Item Value Reference Range Interpretation Comments POC-GLUCOSE METER 196 mg/dL 70-[address] [facility] 67[address] (BEAKER) (test code = [place] 1538) [address] RESPIRATORY PANEL [id number] 10:59:00 Test Item Value Reference Range Interpretation [...] [facility] using the Curious SenseArray Respiratory Panel. It is FDA cleared and has been verified and approved by the [facility] for clinical use on nasopharyngeal swab specimens.The performance of the FilmArrayRP has not been established in individuals who received influenza vaccine. Recent administration ofa nasal influenza vaccine may cause false positive results for Influenza A and/orInfluenza B.POCT-GLUCOSE [id number] 08:15:00 Test Item Value Reference Range Interpretation Comments POC-GLUCOSE METER 184 mg/dL 70-[address] [facility] 59[address] ([facility]) (test code = [place] 1538) [address] CBC W/PLT COUNT & AUTO [id number] 07:49:00 Test Item Value Reference Range Interpretation [...] MEAN CORPUSCULAR HEMOGLOBIN CONC 32.7 GM/DL 32.3-36.5 (AKER) (test code = 752) RED CELL DISTRIBUTION [...] APPLICABLE FOR DIALYSIS PATIEN TS. Specimen moderately [id number] 04:31:00 Test Item Value Reference Range Interpretation Comments MAGNESIUM (BEAKER) (test code = 1.9 mg/dL 1.6-2.6 627) LACTIC ACID, [id number] 04:18:00 Test Item Value Reference Range Interpretation Comments LACTATE BLOOD VENOUS (2) (BEAKER) 1.3 mmol/L 0.5-2.2 (test code = 2872) Specimen moderately ictericPOCT-GLUCOSE [id number] 18:00:00 Test Item Value Reference Range Interpretation Comments POC-GLUCOSE METER 121 mg/dL 70-[address] [facility] [address] ([facility]) (test code = [place] 1538) [address] [id number] 12:39:00 Test Item Value Reference Range Interpretation Comments PROCALCITONIN ([facility]) (test code 4.50 ng/mL <0.05 H = 3036) SEPSIS RISK (ng/mL)Low: 0.05-0.50Intermediate: 0.51-2.00High: >=2.01POCT-GLUCOSE [id number] 12:20:00 Test Item Value Reference Range Interpretation Comments POC-GLUCOSE METER 148 mg/dL 70-[address] [facility] [address] ([facility]) (test code = [place] 1538) [address] LEGIONELLA ANTIGEN, [id number] 12:13:00 Test Item Value Reference Range Interpretation Comments L. PNEUMOPHILA Negative - see Negative fo r L. SEROGP 1 UR AG comment pneumophila ([facility]) (test code serogrou p 1 antigen, = 1156) suggesting no r ecent or current infe ction with this serog roup. Legionellosis c annot be ruled out si nce other serogroup s and species may cau se disease. STREP PNEUMONIAE [id number] 12:13:00 Test Item Value Reference Range Interpretation [...] limit of the test. RAPID INFLUENZA A&B [id number] 12:11:00 Test Item Value Reference Range Interpretation Comments RAPID INFLUENZA A AG (BEAKER) Negative Negative, Inconclusive (test code = 1622) RAPID INFLUENZA B AG (BEAKER) Negative Negative, Inconclusive (test code = 1623) LACTIC ACID, [id number] 10:51:00 Test Item Value Reference Range Interpretation Comments LACTATE BLOOD VENOUS (2) (BEAKER) 3.0 mmol/L 0.5-2.2 H (test code = 2872) Specimen moderately ictericU/S, ABDOMINAL, [id number] 07:19:00REFERRING MD: CHERELLE SALVADOR Please perform with [...] MDReport Verified Date/Time: 10/28/2018 07:19:25 Reading Location: [address] Reading Room RAPID DRUG SCREEN, [id number] 07:07:00 Test Item Value Reference Range Interpretation [...] situations. Chain of custody not maintained. Some sgas-jcq-uoothol medications, as well as adulterants, may cause inaccurate results. Clinical correlation should be applied. A more comprehensive drug screen or confirmation of a detected drug may be performed upon request.CT, BRAIN, WITHOUT [id number] 06:42:00REFERRING MD: CHERELLE FRANCISCO REPORT CT, BRAIN, [...] Verified Date/Time: 10/28/2018 06:42:47 VITAMIN B12 AND [id number] 06:21:00 Test Item Value Reference Range Interpretation Comments VITAMIN B12 (BEAKER) (test code = 719 pg/mL 213-816 774) FOLATE (BEAKER) (test code = 362) 13.7 ng/mL >=7.0 TROPONIN [id number] 06:05:00 Test Item Value Reference Range Interpretation [...] H (test code = 2590) COMPREHENSIVE METABOLIC [id number] 05:44:00 Test Item Value Reference Range Interpretation [...] 347) EGFR (BEAKER) (test 75 mL/min/1.73 ESTIMA LISA GFR IS code = 1092) sq m NOT ACCURATE CREATININE CLEARANCE IN PREDICTING GLOMERULAR FILTRATION RATE . ESTIMATED GFR I S NOT APPLICABLE FOR DIALYSIS PATIEN TS. Specimen moderately [id number] 05:38:00 Test Item Value Reference Range Interpretation Comments MAGNESIUM (BEAKER) (test code = 2.3 mg/dL 1.6-2.6 627) LACTIC ACID, [id number] 05:32:00 Test Item Value Reference Range Interpretation Comments LACTATE BLOOD VENOUS 4.1 mmol/L 0.5-2.2 H Specime n slightly (2) (BEAKER) (test hemolyzed code = 6881) Specimen moderately ictericTROPONIN [id number] 02:28:00 Test Item Value Reference Range Interpretation [...] disease, and persistent tachyarrhythmia.RAD, ABDOMEN/KUB, 1 VIEW [id number] 02:04:00REFERRING MD: CHERELLE SALVADOR Reason for exam:->NG [...] Navarrete MDReport Verified Date/Time: 10/28/2018 02:04:20 HROMBIN [id number] 01:58:00 Test Item Value Reference Range Interpretation [...] mechanical heart valves.CBC W/PLT COUNT & AUTO [id number] 01:45:00 Test Item Value Reference Range Interpretation [...] PLATELET CONCENTRATION Decreased (CELLAVISION)(BEAKER) (test code = 4038) Received comment: User comments: Slide comments:URINALYSIS W/ REFLEX URINE [id number] 01:36:00 Test Item Value Reference Range Interpretation [...] SOURCE(BEAKER) (test code = 2795) COMPREHENSIVE METABOLIC [id number] 01:16:00 Test Item Value Reference Range Interpretation [...] 347) EGFR (BEAKER) (test 68 mL/min/1.73 ESTIMA LISA GFR IS code = 1092) sq m NOT ACCURATE CREATININE CLEARANCE IN PREDICTING GLOMERULAR FILTRATION RATE . ESTIMATED GFR I S NOT APPLICABLE FOR DIALYSIS PATIEN TS. Specimen moderately [id number] 01:15:00 Test Item Value Reference Range Interpretation Comments AMMONIA (BEAKER) (test code = 348) 69 mol/L 18-72 LACTIC ACID, [id number] 01:08:00 Test Item Value Reference Range Interpretation Comments LACTATE BLOOD VENOUS (2) (BEAKER) 3.2 mmol/L 0.5-2.2 H (test code = 2872) Specimen moderately [id number] 01:08:00 Test Item Value Reference Range Interpretation Comments MAGNESIUM (BEAKER) (test code = 1.1 mg/dL 1.6-2.6 L 627) RAD, CHEST, 1 VIEW, NON [id number] 00:52:00REFERRING MD: CHERELLE SALVADOR Reason for exam:->sepsisShould [...] MDReport Verified Date/Time: 10/28/2018 00:52:42 Reading Location: [address] Reading Room ACTIN (SMOOTH MUSCLE) ANTIBODY, [id number] 08:28:00 Test Item Value Reference Range Interpretation Comments SCAN RESULT (test code = 8581035) [id number] 08:27:00 Test Item Value Reference Range Interpretation Comments SCAN RESULT (test code = 1336130) NILS TITER AND [id number] 09:55:00 Test Item Value Reference Range Interpretation Comments NILS TITER (BEAKER) (test code = :160 1541) NILS PATTERN (BEAKER) (test code = Speckled 1781) ANTI-NUCLEAR ANTIBODY (NILS)2018-10-05 09:54:00 Test Item Value Reference Range Interpretation Comments ANTI-NUCLEAR ANTIBODY (NILS) (BEAKER) Positive Negative A (test code = 418) Test performed by IFA method.[id number] 10:54:00 Test Item Value Reference Range Interpretation Comments FERRITIN (BEAKER) (test code = 361) 218 ng/mL 5-275 HEPATITIS A ANTIBODY, [id number] 10:18:00 Test Item Value Reference Range Interpretation Comments HEPATITIS A IGG ANTIBODY (BEAKER) Reactive Nonreactive A (test code = 2797) ALPHA FETOPROTEIN (AFP), TUMOR [id number] 10:14:00 Test Item Value Reference Range Interpretation Comments ALPHA-FETOPROTEIN (BEAKER) (test 3.5 ng/mL <10.0 code = 1094) HEPATITIS A ANTIBODY, [id number] 10:14:00 Test Item Value Reference Range Interpretation Comments HEPATITIS A IGM ANTIBODY (BEAKER) Nonreactive Nonreactive (test code = 498) HEPATITIS B CORE ANTIBODY, [id number] 10:14:00 Test Item Value Reference Range Interpretation Comments HEPATITIS B CORE TOTAL ANTIBODY Nonreactive Nonreactive (BEAKER) (test code = 497) HEPATITIS B SURFACE [id number] 09:42:00 Test Item Value Reference Range Interpretation Comments HEPATITIS B SURFACE ANTIBODY < mIU/mL <8.0 (BEAKER) (test code = 647) HEPATITIS B SURFACE [id number] 09:36:00 Test Item Value Reference Range Interpretation [...] 41 % 20-55 (test code = 2590) ZSYMI-1-[id number] 09:14:00 Test Item Value Reference Range Interpretation Comments ALPHA-1 ANTITRYPSIN (BEAKER) 159.30 mg/dL 90.00-200.00 (test code = 502) COMPREHENSIVE METABOLIC [id number] 09:10:00 Test Item Value Reference Range Interpretation [...] FOR DIALYSIS PATIEN TS. Specimen slightly ictericBILIRUBIN, [id number] 09:10:00 Test Item Value Reference Range Interpretation Comments BILIRUBIN DIRECT (BEAKER) (test 1.4 mg/dL 0.1-0.5 H code = 706) PROTHROMBIN [id number] 08:38:00 Test Item Value Reference Range Interpretation [...] % 0-1 PERCENT (BEAKER) (test code = 4421)
[2020-10-05 22:53] LABS: ALT/SGPT 31 U/L (12-78); AST/SGOT 35 U/L (15-37); Albumin 2.6 g/dL (3.4-5.0); Alkaline Phosphatase 159 U/L (45-117); BUN Blood Urea Nitrogen 11 mg/dL (7-18); Bicarbonate 25 mmol/L (21-32); Bilirubin Direct 0.6 mg/dL (0-0.2); Bilirubin Total 1.4 mg/dL (0.2-1.0); Glucose Level 125 mg/dL (74-106); Magnesium 1.9 mg/dL (1.8-2.4); NT PRO-BNP 41 pg/mL (<125); Potassium 3.8 mmol/L (3.5-5.1); Protein, Total 6.9 g/dL (6.4-8.2); Sodium Level 140 mmol/L (136-145); Troponin (Emerg Dept Use Only) 0.08 ng/mL (0.0-0.045)
[2020-10-05 23:12] LABS: Protime INR 1.36; RBC Red Blood Cell Count 4.41 M/uL (4.33-5.43)
[2020-10-05 23:13] LABS: Absolute Lymphocytes (CBC) 1.9 K/uL (0.7-4.9); Hematocrit 29.2 % (39.6-49.0); Lymphocytes % 37.5 % (15.3-44.8); MPV 9.1 fL (7.6-11.3)
[2020-10-05] MEDS ORDERED: LACTULOSE 20 GM/30 ML UCUP ONE (23:39)
[2020-10-05] MEDS ORDERED: ASPIRIN 81 MG CHEWABLE TABLET ONE (23:39)
[2020-10-06] MEDS ORDERED: ONDANSETRON 4 MG/2 ML VIAL ONE (00:07)
[2020-10-06 00:13] LABS: Anisocytosis 1+; Blood Morphology Comment NOTED (NOT SEEN); Platelet Estimate DECR; White Blood Cell Scan OK (OK)
--- NOTE | 2020-10-06 00:51 | EDPHYS ---
Physician Documentation [facility] Name: Tonny Vidal Age: 64 yrs Sex: Male : 1955 Arrival Date: 10/05/2020 Time: 21:04 Bed 4 Private MD: ED Physician Milan Coronado HPI: 10/05 22:22 This 64 yrs old Male presents to ER via Wheelchair with complaints of high jmm ammonia. 22:22 The patient presents with confusion, slurred speech. Onset: The symptoms/episode jmm began/occurred this morning. Possible causes: high ammonia. Associated signs and symptoms: Pertinent negatives: numbness. This is a 64 year old male with a history of dm, htn, cirrhosis that presents to the ED with complaints of waking up dizzy and has had difficulty walking. Family states his speech is slurred. . Historical: - Allergies: 21:30 Ativan; ca1 - PMHx: 21:30 ADD/ADHD; Diabetes - NIDDM; Hypertension; psoriasis; Cirrhosis; ca1 - PSHx: 21:30 Hernia repair; ca1 - Immunization history:: Client reports receiving the 2nd dose of the Covid vaccine, Client reports receiving the 1st dose of the Covid vaccine, Flu vaccine is up to date. - Social history:: Smoking status: Patient/guardian denies using tobacco, the patient reports quitting approximately 3 years ago. ROS: 22:22 Constitutional: Negative for fever, chills, and weight loss, Cardiovascular: Negative jmm for chest pain, palpitations, and edema, Respiratory: Negative for shortness of breath, cough, wheezing, and pleuritic chest pain. 22:22 Neuro: Positive for altered mental status, gait disturbance, speech changes. 22:22 All other systems are negative. Exam: 22:22 Head/Face: atraumatic. Eyes: EOMI, no conjunctival erythema appreciated ENT: Moist jmm Mucus Membranes Neck: Trachea midline, Supple Chest/axilla: Normal chest wall appearance and motion. Cardiovascular: Regular rate and rhythm. No edema appreciated Respiratory: Normal respirations, no respiratory distress appreciated Abdomen/GI: Non distended, soft Back: Normal ROM Skin: General appearance color normal 22:22 Constitutional: The patient appears in no acute distress, alert, awake. 22:22 Musculoskeletal/extremity: ROM: intact in all extremities. 22:22 Skin: Appearance: Color: normal in color. 22:22 Neuro: Orientation: is normal, Mentation: is normal, Memory: is normal. 22:22 Psych: Behavior/mood is pleasant, cooperative. Vital Signs: 21:27 BP 100 / 70; Pulse 76; Resp 16 S; Temp 96.8(TE); Pulse Ox 100% on R/A; Weight 104.33 kg ca1 (M); Height 5 ft. 6 in. (167.64 cm) (R); Pain 0/10; 23:00 BP 103 / 89; Pulse 76; Resp 19; Pulse Ox 99% ; rr5 10/06 00:00 BP 111 / 65; Pulse 70; Resp 19; Temp 97; Pulse Ox 98% ; rr5 01:20 BP 116 / 95; Pulse 70; Resp 15; Pulse Ox 97% ; rr5 02:30 BP 106 / 70; Pulse 80; Resp 18; Pulse Ox 99% ; rr5 03:27 BP 115 / 80; Pulse 76; Resp 18; Pulse Ox 100% ; rr5 10/05 21:27 Body Mass Index 37.12 (104.33 kg, 167.64 cm) ca1 MDM: 10/05 22:[address] [facility] 10/06 00:47 Data reviewed: vital signs, nurses notes. Counseling: I had a detailed discussion with lubna the patient and/or guardian regarding: the historical points, exam findings, and any diagnostic results supporting the discharge/admit diagnosis, lab results, radiology results, the need for further work-up and treatment in the hospital. ED course: Will admit to Dr. Herman's service. Labs appear consistent with previous admissions. Dr. Coronado will contact Dr. Herman in the morning regarding this admission. Patient is currently non toxic and in no distress. . 10/05 21:53 Order name: Basic Metabolic Panel [facility] 10/05 21:53 Order name: CBC with Diff [facility] 10/05 21:53 Order name: LFT's [facility] 10/05 21:53 Order name: Magnesium [facility] 10/05 21:53 Order name: NT PRO-BNP; Complete Time: 23:04 [facility] 10/05 21:53 Order name: PT-INR; Complete Time: 23:21 [facility] 10/05 21:53 Order name: Troponin (emerg Dept Use Only); Complete Time: 22:56 [facility] 10/05 21:53 Order name: AMMONIA; Complete Time: 22:47 [facility] 10/05 21:54 Order name: Basic Metabolic Panel; Complete Time: 23:04 [facility] 10/05 21:54 Order name: CBC with Automated Diff; Complete Time: 00:16 [facility] 10/05 21:54 Order name: Liver (Hepatic) Function; Complete Time: 23:04 [facility] 10/05 21:54 Order name: Magnesium; Complete Time: 23:04 [facility] 10/05 23:18 Order name: CBC Smear Scan; Complete Time: 00:16 [facility] 10/05 23:45 Order name: COVID-19 : Document "Date of Symptom Onset" if Symptomatic. tt3 10/05 21:53 Order name: XRAY Chest (1 view) [facility] 10/05 21:53 Order name: EKG; Complete Time: 21:54 [facility] 10/05 22:21 Order name: CT Head Brain wo Cont [facility] 10/06 00:58 Order name: Consistent Carb (ADA) [address] [facility] 10/06 00:58 Order name: Ammonia [facility] 10/06 00:58 Order name: Basic Metabolic Panel [facility] 10/06 00:58 Order name: Basic Metabolic Panel [facility] 10/06 00:58 Order name: Troponin I [facility] 10/06 00:58 Order name: Troponin I [facility] 10/06 00:58 Order name: Troponin I [facility] 10/06 00:58 Order name: CBC with Automated Diff [facility] 10/06 00:58 Order name: CBC with Automated Diff [facility] 10/06 02:59 Order name: SARS-COV-2 RT PCR [facility] 10/05 21:53 Order name: Cardiac monitoring; Complete Time: 22:23 [facility] 10/05 21:53 Order name: EKG - Nurse/Tech; Complete Time: 22:23 [facility] 10/05 21:53 Order name: IV Saline Lock; Complete Time: 22:23 [facility] 10/05 21:53 Order name: Labs collected and sent; Complete Time: 22:23 [facility] 10/05 21:53 Order name: O2 Per Protocol; Complete Time: 22:23 [facility] 10/05 21:53 Order name: O2 Sat Monitoring; Complete Time: 22:23 [facility] 10/06 00:58 Order name: EKG Electrocardiogram [facility] 10/06 00:58 Order name: EKG Electrocardiogram [facility] 10/06 00:58 Order name: EKG Electrocardiogram [facility] 10/06 00:58 Order name: EKG Electrocardiogram [facility] Administered Medications: 10/05 23:24 Drug: Aspirin Chewable Tablet 324 mg Route: PO; rr5 10/06 00:13 Follow up: Response: No adverse reaction 10/05 23:24 Drug: Lactulose 30 grams Volume: 45 ml; Route: PO; rr5 10/06 00:13 Follow up: Response: No adverse reaction 10/05 23:58 Drug: Zofran (Ondansetron) 4 mg Route: IVP; Site: right antecubital; rr5 10/06 00:13 Follow up: Response: No adverse reaction ea Disposition: 06:47 Co-signature as Attending Physician, Milan Coronado MD I agree with the assessment and cale plan of care. Disposition: 10/06/20 00:50 Hospitalization ordered by Richy Herman for Inpatient Admission. Preliminary diagnosis are Hepatic Encephalopathy, Elevated Troponin, Altered Mental Status. - Bed requested for Telemetry/MedSurg (Inpatient). - Status is Inpatient Admission. rr5 - Condition is Stable. - Problem is an acute exacerbation. - Symptoms are unchanged. Signatures: Dispatcher [employer] [facility] Alvina Woody RN RN mw Anderson, Corey, MD MD cha Mickail, Joel, PA PA Ulisses Sneed, SECURITY VEHICLE PATROL OFFICER-C SECURITY VEHICLE PATROL OFFICER-Cla1 Baldemar Rehman RN RN rr5 Neelam Dent RN RN ca1 Antunez, Elena RN ea Corrections: (The following items were deleted from the chart) 03:09 00:50 Hospitalization Ordered by Richy Herman MD for Inpatient Admission. Preliminary marcial diagnosis is Hepatic Encephalopathy; Elevated Troponin; Altered Mental Status. Bed requested for Telemetry/MedSurg (Inpatient). Status is Inpatient Admission. Condition is Stable. Problem is an acute exacerbation. Symptoms are unchanged. lubna 03:40 03:09 10/06/2020 00:50 Hospitalization Ordered by Richy Herman MD for Inpatient rr5 Admission. Preliminary diagnosis is Hepatic Encephalopathy; Elevated Troponin; Altered Mental Status. Bed requested for Telemetry/MedSurg (Inpatient). Status is Inpatient Admission. Condition is Stable. Problem is an acute exacerbation. Symptoms are unchanged. marcial
--- NOTE | 2020-10-06 00:51 | ER ---
Nurse's Notes [facility] Name: Tonny Vidal Age: 64 yrs Sex: Male : 1955 Arrival Date: 10/05/2020 Time: 21:04 Bed 4 Private MD: Diagnosis: Hepatic Encephalopathy;Elevated Troponin;Altered Mental Status Presentation: 10/05 21:27 Chief complaint: Spouse and/or significant other states: He has liver cirrhosis, maybe ca1 his ammonia is high cause he woke up this morning confused, slurring and he also said he's dizzy. Coronavirus screen: Client denies travel out of the [place] in the last 14 days. At this time, the client does not indicate any symptoms associated with coronavirus-19. Ebola Screen: Patient negative for fever greater than or equal to 101.5 degrees Fahrenheit, and additional compatible Ebola Virus Disease symptoms Patient denies exposure to infectious person. Patient denies travel to an Ebola-affected area in the 21 days before illness onset. No symptoms or risks identified at this time. Initial Sepsis Screen: Does the patient meet any 2 criteria? No. Patient's initial sepsis screen is negative. Does the patient have a suspected source of infection? No. Patient's initial sepsis screen is negative. Risk Assessment: Do you want to hurt yourself or someone else? Patient reports no desire to harm self or others. Onset of symptoms was October 05, 2020. 21:27 Method Of Arrival: Wheelchair ca1 21:27 Acuity: FAIZA 3 ca1 Historical: - Allergies: 21:30 Ativan; ca1 - PMHx: 21:30 ADD/ADHD; Diabetes - NIDDM; Hypertension; psoriasis; Cirrhosis; ca1 - PSHx: 21:30 Hernia repair; ca1 - Immunization history:: Client reports receiving the 2nd dose of the Covid vaccine, Client reports receiving the 1st dose of the Covid vaccine, Flu vaccine is up to date. - Social history:: Smoking status: Patient/guardian denies using tobacco, the patient reports quitting approximately 3 years ago. Screenin:24 Abuse screen: Denies threats or abuse. Denies injuries from another. Nutritional rr5 screening: No deficits noted. Tuberculosis screening: No symptoms or risk factors identified. Fall Risk Total Albrecht Fall Scale indicates No Risk (0-24 pts). Assessment: 22:00 General: Appears in no apparent distress. comfortable, Behavior is calm, cooperative. rr5 Pain: Denies pain. Neuro: Level of Consciousness is awake, alert, obeys commands, Oriented to person, place, Reports dizziness, family member episode of cofusion. Cardiovascular: Capillary refill < 3 seconds Patient's skin is warm and dry. Respiratory: Airway is patent Respiratory effort is even, unlabored, Respiratory pattern is regular, symmetrical. GI: Abdomen is round Parent/caregiver reports the patient having suspecting high ammonia. : No signs and/or symptoms were reported regarding the genitourinary system. EENT: No signs and/or symptoms were reported regarding the EENT system. Derm: Skin with poor turgor Skin is dry, Skin temperature is warm Rash noted that is urticaria. Musculoskeletal: Capillary refill < 3 seconds. 23:00 Reassessment: Patient appears in no apparent distress at this time. resting eyes closed rr5 breathing spontaneously at room air. 23:50 GI: Pt is actively vomiting undigested food, ED provider aware with order made and rr5 carried out. 10/06 00:00 Reassessment: Patient appears in no apparent distress at this time. No changes from rr5 previously documented assessment. 01:20 Reassessment: Patient appears in no apparent distress at this time. resting eyes closed rr5 breathing spontaneously at room air. 02:30 Reassessment: Patient appears in no apparent distress at this time. went to restroom rr5 steady gait noted. 03:00 Reassessment: Patient appears in no apparent distress at this time. No changes from rr5 previously documented assessment. Vital Signs: 10/05 21:27 BP 100 / 70; Pulse 76; Resp 16 S; Temp 96.8(TE); Pulse Ox 100% on R/A; Weight 104.33 kg ca1 (M); Height 5 ft. 6 in. (167.64 cm) (R); Pain 0/10; 23:00 BP 103 / 89; Pulse 76; Resp 19; Pulse Ox 99% ; rr5 10/06 00:00 BP 111 / 65; Pulse 70; Resp 19; Temp 97; Pulse Ox 98% ; rr5 01:20 BP 116 / 95; Pulse 70; Resp 15; Pulse Ox 97% ; rr5 02:30 BP 106 / 70; Pulse 80; Resp 18; Pulse Ox 99% ; rr5 03:27 BP 115 / 80; Pulse 76; Resp 18; Pulse Ox 100% ; rr5 10/05 21:27 Body Mass Index 37.12 (104.33 kg, 167.64 cm) ca1 ED Course: 10/05 21:04 Patient arrived in ED. am4 21:29 Triage completed. ca1 21:30 Arm band placed on right wrist. ca1 21:52 Jake Trotter PA is PHCP. jmm 21:52 Milan Coronado MD is Attending Physician. jmm 22:07 Baldemar Rehman, DIANE is Primary Nurse. rr5 22:24 XRAY Chest (1 view) In Process Unspecified. EDMS 22:24 Patient has correct armband on for positive identification. Placed in gown. Bed in low rr5 position. Call light in reach. athletic monitor on. Pulse ox on. NIBP on. 22:24 EKG done, by ED staff, reviewed by Jake BRITO. Inserted saline lock: 20 gauge in rr5 right antecubital area, using aseptic technique. Blood collected. 22:53 CT Head Brain wo Cont In Process Unspecified. EDMS 10/06 00:14 COVID swab sent to lab. rr5 00:50 Richy Herman MD is Hospitalizing Provider. [facility] 03:28 No provider procedures requiring assistance completed. Patient admitted, IV remains in rr5 place. intact, No redness/swelling at site. Administered Medications: 10/05 23:24 Drug: Aspirin Chewable Tablet 324 mg Route: PO; rr5 10/06 00:13 Follow up: Response: No adverse reaction ea 10/05 23:24 Drug: Lactulose 30 grams Volume: 45 ml; Route: PO; rr5 10/06 00:13 Follow up: Response: No adverse reaction ea 10/05 23:58 Drug: Zofran (Ondansetron) 4 mg Route: IVP; Site: right antecubital; rr5 10/06 00:13 Follow up: Response: No adverse reaction Outcome: 00:50 Decision to Hospitalize by Provider. [facility] 03:30 Admitted to Med/surg accompanied by tech, via stretcher, room 201, with chart, Report rr5 called to [place] 03:30 Condition: stable 03:30 Instructed on the need for admit. 03:40 Patient left the ED. rr5 Signatures: Dispatcher [employer] EDMS Jake Trotter PA PA jmm Antunez, Elena, RN RN ea Roque, Raymond, RN RN rr5 Neelam Dent RN RN ca1 Martinez, Ashley am4 Corrections: (The following items were deleted from the chart) 01:03 10/05 22:00 Derm: Skin is intact, Skin temperature is warm rr5 rr5 10/06 01:17 10/05 22:00 Neuro: Level of Consciousness is awake, alert, obeys commands, Oriented to rr5 person, place, time, Reports dizziness, family member episode of cofusion. rr5 10/06 03:32 00:00 Reassessment: Patient appears in no apparent distress at this time. seen and rr5 examined by hospitalist at bedside rr5
[2020-10-06] MEDS ORDERED: ONDANSETRON 4 MG/2 ML VIAL IV PRN (00:55)
[2020-10-06 04:09] VITALS: BMI 35.2
--- NOTE | 2020-10-06 07:57 | RAD REPORT ---
EXAM DESCRIPTION: Shaina Single View10/05/2020 10:24 pm CLINICAL HISTORY: Chest pain COMPARISON: August 2020 FINDINGS: The lungs appear clear of acute infiltrate. The heart is borderline enlarged IMPRESSION: No acute abnormalities displayed
[2020-10-06] MEDS ORDERED: ASPIRIN EC 81 MG TAB PO SCH (09:00)
[2020-10-06] MEDS: LACTULOSE 20 GM/30 ML UCUP PO SCH ×2 (09:47→13:19)
[2020-10-06 09:56] VITALS: O2SAT 100
--- NOTE | 2020-10-06 11:55 | P.SSS ---
Patient History Date of Service: 10/06/20 Reason for admission: CONFUSION History of Present Illness: MR. GRIGGS HAS CIRRHOSIS OF LIVER AND COMES WITH CONFUSION. HE HAD HIGH AMMONIA LEVEL AND NOW AFTER LACTULOSE IT IS IMPROVING. HE WANTS TO GO HOME. Allergies lorazepam [From Ativan] Allergy (Severe, Verified 10/06/20 04:24) Shortness of breath Home medications list reviewed: Yes Home Medications: Carvedilol [Coreg] 6.25 mg PO BIDWM 01/11/20 Folic Acid 1 mg PO DAILY 01/11/20 Pantoprazole [Protonix Tab*] 40 mg PO DAILY 01/11/20 Spironolactone 100 mg PO BID 01/11/20 Furosemide [Lasix*] 40 mg PO BID 09/18/20 Insulin -Regular Human [Novolin -R*] See Protocol SQ ACHS 09/18/20 Insulin Glargine,Hum.rec.anlog [Toujeo Solostar] 50 unit SQ DAILY 09/18/20 Rifaximin [Xifaxan] 550 mg PO BID 09/18/20 Trazodone [Desyrel] 50 mg PO BEDTIME 09/18/20 - Past Medical/Surgical History Has patient received pneumonia vaccine in the past: No Diabetic: Yes -: DM II -: HTN -: CHF -: Liver cirrhosis, -: Hyperlipidemia -: Obesity -: GERD -: Gastric varices -: H pylori gastritis -: Hernia repair Psychosocial/ Personal History: Patient has significant other. - Family History Father -: Diabetes Mother -: Liver disease - Social History Smoking Status: Former smoker Alcohol use: No CD- Drugs: No Caffeine use: Yes Place of Residence: Home Review of Systems General: Malaise Physical Examination - Vital Signs Temperature: 96.9 F Blood Pressure: 113/65 Pulse: 60 Respirations: 18 Pulse Ox (%): 100 - Physical Exam General: Oriented x3, Mild distress HEENT: Atraumatic, PERRLA, Mucous membr. moist/pink, EOMI, Sclerae nonicteric Neck: Supple, 2+ carotid pulse no bruit, No LAD, Without JVD or thyroid abnormality Respiratory: Clear to auscultation bilaterally, Normal air movement Cardiovascular: Regular rate/rhythm, Normal S1 S2 Gastrointestinal: Normal bowel sounds, No tenderness Musculoskeletal: No tenderness Integumentary: No rashes Neurological: Normal gait, Normal speech, Normal strength at 5/5 x4 extr, Normal tone, Normal affect Lymphatics: No axilla or inguinal lymphadenopathy - Studies Laboratory Data (last 24 hrs) 10/05/20 22:20: PT 15.7 H, INR 1.36 10/05/20 22:20: WBC 5.10 D, Hgb 9.1 L, Hct 29.2 L, Plt Count 66 L D 10/05/20 22:20: Sodium 140, Potassium 3.8, BUN 11, Creatinine 0.82, Glucose 125 H, Magnesium 1.9, Total Bilirubin 1.4 H, AST 35, ALT 31, Alkaline Phosphatase 159 H - Diagnosis (Problem(s)) (1) Alcoholic cirrhosis Current Visit: No Status: Acute Plan: HE HAS QUIT DRINKING NOW. Qualifiers: Ascites presence: with ascites Qualified Code(s): K70.31 - Alcoholic cirrhosis of liver with ascites (2) Hepatic encephalopathy Current Visit: No Status: Acute Plan: HE IS ALREADY ON XIFAXAN. I WILL ADD LACTULOSE TID TO CONTROL MORE. I AM NOT SURE IF HE TAKES XIFAXAN DAILY. - Disposition Disposition: ROUTINE DISCHARGE
[2020-10-06 12:25] VITALS: BP 123/64; TEMP 97.3
--- NOTE | 2020-10-06 14:56 | RAD REPORT ---
EXAM DESCRIPTION: CT - Head Brain Wo Cont - 10/06/2020 6:28 am CLINICAL HISTORY: 64 years, Male, ams COMPARISON: 03/04/2020.. FINDINGS: Multiple transaxial tomograms of the brain were obtained from the base of the skull to the vertex without contrast. 2-D multiplanar reformats and the coronal and sagittal plane were performed and reviewed. This exam was performed according to our departmental dose-optimization protocol, which includes auto mated exposure control, adjustment of the mA and/or kV according to patient size and/or use of iterat nishant reconstruction technique. Brain parenchyma demonstrate mild prominence of the sulci and gyri are corresponding to mild cerebral and cerebellar atrophy. There is minimal periventricular white matter changes of microvascular ische raman. There is no midline shift and/or mass effect. There is no evidence for acute intracranial hemorr radha. Again there is noted the presence of a lipoma within the right terminal plate. There is minimal intracranial vascular calcifications along the cavernous sinus. Lateral ventricles and cisterns disp lace normal appearance. No additional intra or extra axial fluid collections were seen. The calvari um is intact with no evidence for fracture. The visualized portions of the paranasal sinuses, mastoid cells and orbits demonstrate to be clear. IMPRESSION: BRAIN ATROPHY WITH PERIVENTRICULAR MATTER CHANGES OF MICROVASCULAR ISCHEMIA. NO ACUTE INTRACRANIAL HEMORRHAGE. Electronically signed by: Shamar Rollins MD 10/05/2020 11:12 PM CDT Due to temporary technical issues with the PACS/Fluency reporting system, reports are being signed by the in house radiologists without review as a courtesy to insure prompt reporting. The interpreting radiologist is fully responsible for the content of the report.
--- NOTE | 2020-10-06 17:41 | EKG ---
Test Date: 2020-10-06 Test Time: 04:14:29 Hemp Fiber Taker Off: RT MEASUREMENT RESULTS: Intervals: Rate: 65 AR: 162 QRSD: 90 QT: 452 QTc: 470 [place]: P: 21 AR: 162 QRS: -46 T: 25 INTERPRETIVE STATEMENTS: Sinus rhythm with fusion complexes Pulmonary disease pattern Left anterior fascicular block Abnormal ECG Compared to ECG 10/05/2020 22:16:06 Fusion complex(es) now present Left anterior fascicular block now present Left-axis deviation no longer present Electronically Signed On 10-06-20 17:40:07 CDT by Nemesio Rachel
--- NOTE | 2020-10-06 17:43 | EKG ---
Test Date: 2020-10-05 Test Time: 22:16:06 Student Union Consultant: RR MEASUREMENT RESULTS: Intervals: Rate: 65 GA: 166 QRSD: 90 QT: 436 QTc: 453 [place]: P: 40 GA: 166 QRS: -39 T: 16 INTERPRETIVE STATEMENTS: Normal sinus rhythm Left axis deviation Pulmonary disease pattern Abnormal ECG No previous ECG available for comparison Electronically Signed On 10-06-20 17:40:15 CDT by Nemesio Rachel
== END 2020-10-06 14:00 | disposition home health service (06) | DRG 432 ==
LOC: ER 20:58 → ERHOLD 10-06 01:21 → 2ND 10-06 03:42
PROVIDERS: ADMIT Internal Medicine; ATTEND Internal Medicine
DX: K70.31 Alcoholic cirrhosis of liver with ascites (principal); K72.00 Acute and subacute hepatic failure without coma; I10 Essential (primary) hypertension; K21.9 Gastro-esophageal reflux disease without esophagitis; E78.5 Hyperlipidemia, unspecified; E11.9 Type 2 diabetes mellitus without complications; Z79.899 Other long term (current) drug therapy; Z79.4 Long term (current) use of insulin; Z87.891 Personal history of nicotine dependence; Z20.822 Contact with and (suspected) exposure to COVID-19
CPT/HCPCS: 36415; 70450; 71045; 80048; 80076; 82140; 82947; 83735; 83880; 84484; 85025; 85610; 93005; 96374; 99285; J2405; U0003

== ENCOUNTER 2021-03-29 08:42 | Inpatient (IN) | payer OTHER ==
--- NOTE | 2021-03-29 09:44 | RAD REPORT ---
EXAM DESCRIPTION: CT - Head Brain Wo Cont - 03/29/2021 9:34 am CLINICAL HISTORY: AMS COMPARISON: Head Brain Wo Cont dated 10/05/2020; Head Brain Wo Cont dated 03/04/2020 TECHNIQUE: Axial 5 mm thick images of the head were obtained without IV contrast. All CT scans are performed using dose optimization technique as appropriate and may include automated exposure control or mA/KV adjustment according to patient size. FINDINGS: No intracranial hemorrhage, mass, edema or shift of mid-line structures. No acute cortical based infarction. No cortical edema or sulcal effacement. No significant atrophy changes are present . Ventricles are stable but prominent appear slightly out of proportion in size. Correlation is neede d with any normal pressure hydrocephalus findings. Lipoma near the quadrigeminal plate cistern is unc hanged. Delete select Mastoid air cells and visualized portions of the paranasal sinuses are clear. No acute bony findings. IMPRESSION: No acute intracranial finding and no significant changes from the prior studies. Ventricles do appear prominent in size given the absence of any significant volume loss. Correlation is needed with any clinical findings of normal pressure hydrocephalus.
[2021-03-29 09:45] LABS: Absolute Lymphocytes (CBC) 1.6 K/uL (0.7-4.9); Basophils % 0.9 % (0-1.3); Hematocrit 33.6 % (39.6-49.0); Lymphocytes % 23.2 % (15.3-44.8); MPV 8.8 fL (7.6-11.3); RBC Red Blood Cell Count 4.83 M/uL (4.33-5.43)
[2021-03-29 09:48] LABS: Protime INR 1.35
[2021-03-29 10:19] LABS: Anisocytosis 1+; Blood Morphology Comment NOTED (NOT SEEN); Hypochromasia 1+; Platelet Estimate ADEQ
[2021-03-29 10:41] LABS: ALT/SGPT 33 U/L (12-78); AST/SGOT 33 U/L (15-37); Albumin 2.7 g/dL (3.4-5.0); Alkaline Phosphatase 157 U/L (45-117); BUN Blood Urea Nitrogen 11 mg/dL (7-18); Bicarbonate 22 mmol/L (21-32); Bilirubin Direct 0.7 mg/dL (0-0.2); Bilirubin Total 1.9 mg/dL (0.2-1.0); Glucose Level 155 mg/dL (74-106); Magnesium 1.9 mg/dL (1.8-2.4); NT PRO-BNP 88 pg/mL (<125); Potassium 3.9 mmol/L (3.5-5.1); Protein, Total 7.3 g/dL (6.4-8.2); Sodium Level 140 mmol/L (136-145)
--- NOTE | 2021-03-29 11:00 | RAD REPORT ---
EXAM DESCRIPTION: RAD - Chest Single View - 03/29/2021 10:43 am CLINICAL HISTORY: AMS COMPARISON: October 05 TECHNIQUE: AP portable chest image was obtained 03/29/2021 10:43 am in supine positioning. FINDINGS: Low lung volumes noted. This accentuates the baseline interstitial pattern. Cardiac silhou ette is accentuated by low lung volumes. No measurable pleural effusion and no pneumothorax. No acute bony abnormality seen. No acute aortic findings suspected. IMPRESSION: No acute cardiopulmonary process. Low lung volumes and under penetrated portable technique accentuate the interstitial pattern. No sign ificant interstitial infiltrate or edema suspected.
[2021-03-29] MEDS ORDERED: ASPIRIN 81 MG CHEWABLE TABLET ONE (12:34)
--- NOTE | 2021-03-29 12:40 | ER ---
Nurse's Notes [facility] Name: Tonny Vidal Age: 65 yrs Sex: Male : 1955 Arrival Date: 03/29/2021 Time: 08:43 Bed 16 Private MD: Diagnosis: Altered mental status, unspecified;Elevated Troponin Presentation: 03/29 08:43 Chief complaint: EMS states: they were called by the patients daughter who was unable ap3 to get in touch with patient. It is reported that the patient was outside in his front yard when EMS arrived on scene, in his boxers. EMS reports it appeared the patient had urinated on himself. It is reported the daughter and neighbor were both on scene upon EMS arrival, and the patient was altered, laughing at all questions EMS personnel asked. It is reported the patient has a history of cirrhosis of the liver, but is noncompliant. Coronavirus screen: At this time, the client does not indicate any symptoms associated with coronavirus-19. Ebola Screen: No symptoms or risks identified at this time. Initial Sepsis Screen: Does the patient meet any 2 criteria? No. Patient's initial sepsis screen is negative. Does the patient have a suspected source of infection? No. Patient's initial sepsis screen is negative. Risk Assessment: Do you want to hurt yourself or someone else? Patient reports no desire to harm self or others. Onset of symptoms was March 29, 2021. Care prior to arrival: IV initiated. 20 GA, in the left antecubital area. 08:43 Method Of Arrival: EMS: [facility] ap3 08:43 Acuity: FAIZA 3 ap3 Triage Assessment: 08:48 General: Appears unkempt, Behavior is calm, cooperative. Pain: Denies pain. Neuro: ap3 Level of Consciousness is awake, obeys commands, Oriented to person, When asked date of , patient laughed in repsonse. However patient was able to tell nurse his name and his daughters name. . Cardiovascular: skin is cool and dry. It is unknown how long the patient was standing outside prior to EMS arrival. . Respiratory: Airway is patent Respiratory effort is even, unlabored, Respiratory pattern is regular, symmetrical. Historical: - Allergies: 08:47 Ativan; ap3 - PMHx: 08:47 ADD/ADHD; Cirrhosis; Diabetes - NIDDM; Hypertension; psoriasis; ap3 - Immunization history:: Adult Immunizations unknown. - Social history:: Smoking status: unknown. Screenin:49 Abuse screen: Denies threats or abuse. Nutritional screening: No deficits noted. ap3 Tuberculosis screening: No symptoms or risk factors identified. Fall Risk Gait- Weak (10 pts.). Mental Status- Overestimates/Forgets Limitations (15 pts.). Total Albrecht Fall Scale indicates Low Risk Score (25-44 pts). Fall prevention measures have been instituted. Side Rails Up X 2 Placed close to Nursing Station Frequent Obs/Assesments occuring. Assessment: 11:27 Reassessment: Patient and/or family updated on plan of care and expected duration. Pain ap3 level reassessed. Patient is alert, oriented x 3, equal unlabored respirations, skin warm/dry/pink. patients friend at bedside. patient changed into gown and resituated in the stretcher. 12:26 Reassessment: Ppt to MRI at this time. Will update status upon return. 5 16:50 Reassessment: Jose Cardona is [facility] . ap3 17:13 Reassessment: Pt daughter's requesting Music Composer consult to help family find better ap3 placement options. Family concerned about pt attempting to drive while not oriented due to health condition. Please call; TERI DOWNS [phone]. Vital Signs: 08:43 BP 143 / 61; Pulse 76; Resp 18; Pulse Ox 98% on R/A; Weight 97.52 kg; Height 5 ft. 11 ap3 in. (180.34 cm) (R); 10:35 BP 120 / 54; Temp 98.3; Pulse Ox 100% ; jh5 11:28 BP 132 / 52; Pulse 67; Pulse Ox 100% on R/A; ap3 12:00 BP 144 / 70; Pulse 64; Resp 18; Pulse Ox 100% ; ap3 15:45 BP 111 / 48; Pulse 70; Resp 18; Pulse Ox 100% ; ap3 20:00 BP 131 / 60; Pulse 67; Resp 16; Temp 97.1; Pulse Ox 100% ; Pain 0/10; dc2 08:43 Body Mass Index 29.99 (97.52 kg, 180.34 cm) ap3 ED Course: 08:43 Patient arrived in ED. ds1 08:43 Robyn Foster, RN is Primary Nurse. ap3 08:47 Triage completed. ap3 08:50 Arm band placed on left wrist. ap3 08:50 Patient has correct armband on for positive identification. Bed in low position. Call ap3 light in reach. Side rails up X2. Pulse ox on. NIBP on. Noise minimized. 09:13 Jake Trotter PA is PHCP. [facility] 09:13 Milan Coronado MD is Attending Physician. jmm 09:33 CT Head Brain wo Cont In Process Unspecified. EDMS 09:43 SARS-COV-2 RT PCR (Document "Date of Onset" if Symptomatic) Sent. sl2 10:30 XRAY at bedside. jh5 10:43 XRAY Chest (1 view) In Process Unspecified. EDMS 12:29 MRI - Brain Wo Cont In Process Unspecified. EDMS 12:39 Ishan Finnegan MD is Hospitalizing Provider. [facility] 16:48 Pt visited by daughter. ap3 20:00 No provider procedures requiring assistance completed. Flushed Converted IV to saline dc2 lock on left antecubital area. 20:00 Flushed Converted IV to saline lock on dc2 Administered Medications: 11:46 Drug: Aspirin Chewable Tablet 324 mg Route: PO; ap3 16:52 Follow up: Response: No adverse reaction ap3 Outcome: 12:40 Decision to Hospitalize by Provider. [facility] 20:00 Admitted to Tele accompanied by tech, via wheelchair, room 202, with chart, Report dc2 called to DIANE KATE 20:00 Condition: stable 20:00 Condition: stable dc2 20:00 Instructed on the need for admit. 20:10 Patient left the ED. dc2 Signatures: Dispatcher [employer] EDMS Jake Trotter PA PA jmm Sanford, Demi ds1 Robyn Foster, DIANE CONTRERAS ap3 Lucia Fowler RN RN dc2 Ruthann Andino RN RN sl2 Anne-Marie Allen RN RN jh5
--- NOTE | 2021-03-29 12:40 | EDPHYS ---
Physician Documentation [facility] Name: Tonny Vidal Age: 65 yrs Sex: Male : 1955 Arrival Date: 03/29/2021 Time: 08:43 Bed 16 Private MD: ED Physician Milan Coronado HPI: 03/29 12:32 The patient presents with confusion. Onset: The symptoms/episode began/occurred today. jmm Possible causes: elevated ammonia. Associated signs and symptoms:. This is a 65 with a history of liver cirrhosis, diabetes mellitus, hypertension the presents emerged department with altered mental status. Family found the patient is unaware outside urinating on himself. . Historical: - Allergies: 08:47 Ativan; ap3 - PMHx: 08:47 ADD/ADHD; Cirrhosis; Diabetes - NIDDM; Hypertension; psoriasis; ap3 - Immunization history:: Adult Immunizations unknown. - Social history:: Smoking status: unknown. ROS: 12:32 Unable to obtain ROS due to altered mental status. jmm Exam: 12:32 Head/Face: atraumatic. Eyes: EOMI, no conjunctival erythema appreciated ENT: Moist jmm Mucus Membranes Neck: Trachea midline, Supple Chest/axilla: Normal chest wall appearance and motion. Cardiovascular: Regular rate and rhythm. No edema appreciated Respiratory: Normal respirations, no respiratory distress appreciated Abdomen/GI: Non distended, soft Back: Normal ROM Skin: General appearance color normal 12:32 Constitutional: The patient appears awake. 12:32 Musculoskeletal/extremity: ROM: intact in all extremities. 12:32 Skin: Appearance: Color: normal in color. 12:32 Neuro: Orientation: to person. 12:32 Psych: Behavior/mood is pleasant, cooperative. Vital Signs: 08:43 BP 143 / 61; Pulse 76; Resp 18; Pulse Ox 98% on R/A; Weight 97.52 kg; Height 5 ft. 11 ap3 in. (180.34 cm) (R); 10:35 BP 120 / 54; Temp 98.3; Pulse Ox 100% ; jh5 11:28 BP 132 / 52; Pulse 67; Pulse Ox 100% on R/A; ap3 12:00 BP 144 / 70; Pulse 64; Resp 18; Pulse Ox 100% ; ap3 15:45 BP 111 / 48; Pulse 70; Resp 18; Pulse Ox 100% ; ap3 20:00 BP 131 / 60; Pulse 67; Resp 16; Temp 97.1; Pulse Ox 100% ; Pain 0/10; dc2 08:43 Body Mass Index 29.99 (97.52 kg, 180.34 cm) ap3 MDM: 09:14 Patient medically screened. lubna 12:32 Data reviewed: vital signs, nurses notes. Counseling: I had a detailed discussion with lubna the patient and/or guardian regarding: the historical points, exam findings, and any diagnostic results supporting the discharge/admit diagnosis, lab results, the need for further work-up and treatment in the hospital. ED course: Family states Herman is no longer PCP. I discussed the patient with Dr. Finnegan whom accepted the patient for admission. . 03/29 09:09 Order name: Basic Metabolic Panel 03/29 09:09 Order name: CBC with Diff; Complete Time: 10:21 03/29 09:09 Order name: LFT's; Complete Time: 10:45 03/29 09:09 Order name: Magnesium; Complete Time: 10:45 03/29 09:09 Order name: NT PRO-BNP; Complete Time: 10:45 03/29 09:09 Order name: PT-INR; Complete Time: 10:02 03/29 09:09 Order name: Troponin (emerg Dept Use Only); Complete Time: 10:45 03/29 09:09 Order name: AMMONIA; Complete Time: 10:05 03/29 09:09 Order name: Basic Metabolic Panel; Complete Time: 10:45 [facility] 03/29 09:19 Order name: SARS-COV-2 RT PCR (Document "Date of Onset" if Symptomatic); Complete Time: cale 11:03/29 10:19 Order name: Manual Differential; Complete Time: 10:21 [facility] 03/29 16:28 Order name: Comprehensive Metabolic Panel [facility] 03/29 16:28 Order name: Comprehensive Metabolic Panel [facility] 03/29 16:29 Order name: CBC with Automated Diff [facility] 03/29 09:09 Order name: XRAY Chest (1 view); Complete Time: 11:06 03/29 09:09 Order name: CT Head Brain wo Cont; Complete Time: 10:02 03/29 10:07 Order name: MRI - Brain Wo Cont; Complete Time: 12:59 [facility] 03/29 16:29 Order name: CBC with Automated Diff [facility] 03/29 16:29 Order name: Lipid Profile [facility] 03/29 16:29 Order name: Lipid Profile [facility] 03/29 16:29 Order name: Protime (+INR) [facility] 03/29 16:29 Order name: Protime (+INR) [facility] 03/29 16:29 Order name: PTT, Activated Partial Thromb [facility] 03/29 16:29 Order name: PTT, Activated Partial Thromb [facility] 03/29 16:29 Order name: EEG Request [facility] 03/29 16:29 Order name: EEG Request [facility] 03/29 16:29 Order name: Brain Wo Cont [facility] 03/29 16:30 Order name: Troponin I [facility] 03/29 16:30 Order name: Troponin I [facility] 03/29 16:30 Order name: Troponin I [facility] 03/29 09:09 Order name: EKG; Complete Time: 09:10 03/29 09:09 Order name: Cardiac monitoring; Complete Time: 09:13 03/29 09:09 Order name: EKG - Nurse/Tech; Complete Time: 10:08 iw 03/29 09:09 Order name: IV Saline Lock; Complete Time: 09:13 03/29 09:09 Order name: Labs collected and sent; Complete Time: 09:38 iw 03/29 09:09 Order name: O2 Per Protocol; Complete Time: 09:13 03/29 09:09 Order name: O2 Sat Monitoring; Complete Time: 09:13 03/29 16:28 Order name: CONS Physician Consult [facility] 03/29 16:28 Order name: Heart Healthy [facility] 03/29 16:29 Order name: Brain Wo Cont [facility] 03/29 16:30 Order name: Echo with Doppler [facility] 03/29 16:30 Order name: Echo with Doppler [facility] Administered Medications: 11:46 Drug: Aspirin Chewable Tablet 324 mg Route: PO; ap3 16:52 Follow up: Response: No adverse reaction ap3 Disposition: 03/30 11:37 Co-signature as Attending Physician, Milan Coronado MD I agree with the assessment and cale plan of care. Disposition Summary: 03/29/21 12:40 Hospitalization Ordered Hospitalization Status: Inpatient Admission lubna Provider: Finnegan, Mohammad jmm Condition: Stable jmm Problem: new jmm Symptoms: are unchanged jmm Bed/Room Type: Standard jmm Location: Telemetry/MedSurg (Inpatient)(03/29/21 17:31) bd Room Assignment: 202(03/29/21 17:31) bd Diagnosis - Altered mental status, unspecified jmm - Elevated Troponin jmm Forms: - Medication Reconciliation Form jmm - SBAR form jmm Signatures: Dispatcher [employer] EDMS Nette Self Corey, MD MD cha Mickail, Joel, PA PA jmm Angela Allen, RN RN Robyn Braxton RN RN ap3 Corrections: (The following items were deleted from the chart) 03/29 12:35 12:27 This 65 yrs old Male presents to ER via EMS with complaints of altered jmm mental status. jmm 17:05 12:40 Telemetry/MedSurg (Inpatient) m iw 17:05 12:40 jmm iw 17:31 17:05 [facility] ER HOLD iw bd 17:31 17:05 ERHOLD- iw bd
--- NOTE | 2021-03-29 12:58 | RAD REPORT ---
EXAM DESCRIPTION: MRI - Brain Wo Cont - 03/29/2021 12:44 pm CLINICAL HISTORY: ams, transient alteration of awareness, history of chemotherapy treatment for hepa tic malignancy COMPARISON: Head Brain Wo Cont dated 03/29/2021 TECHNIQUE: Sagittal T1-weighted images were obtained along with axial PD, heavily T2-weighted and T2 -FLAIR images. Axial DWI and ADC mapping sequences were also obtained along with coronal heavily T2-w eighted images. FINDINGS: No intracranial hemorrhage, mass or acute infarction. There is no edema or shift of midlin e structures. 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 No acute component at this site. Gonzalez-matter/white matter junction is preserved. Signal voids are seen as a normal finding in the major intracranial vessels. No significant atrophy changes are present. As noted on the CT karlie dy, ventricles appear relatively prominent given the amount of volume loss. This is a stable presenta tion. Correlation is needed to determine if the patient may have any normal pressure hydrocephalus fi ndings. There are no findings that suggest intraparenchymal metastatic disease. No dural thickening i dentified. No sella or supra sella abnormality seen. No globe or orbital content abnormality identified. Mastoid air cells and paranasal sinuses are clear. IMPRESSION: No acute infarction changes are present. There is no mass, hemorrhage or other acute int racranial finding. As noted on the CT study, ventricles are relatively prominent given the absence of any significant ce rebral volume loss. Correlation is needed with any findings that may suggest normal pressure hydrocep halus.
[2021-03-29] MEDS ORDERED: ACETAMINOPHEN 500 MG TAB PO PRN (16:26)
[2021-03-29] MEDS ORDERED: ONDANSETRON 4 MG/2 ML VIAL IV PRN (16:26)
[2021-03-29] MEDS ORDERED: MORPHINE 2 MG/ML SYR IV PRN (16:26)
[2021-03-29] MEDS ORDERED: ENOXAPARIN 40 MG/0.4 ML SQ SCH (17:00)
[2021-03-29] MEDS: NA CHLORIDE 0.9% 1,000 ML IV SCH (17:00)
[2021-03-29 17:50] VITALS: BMI 29.8
[2021-03-29] MEDS: METOPROLOL TAR 25 MG TAB PO SCH (18:00)
[2021-03-29] MEDS ORDERED: ENOXAPARIN 40 MG/0.4 ML SQ ONE (19:04)
[2021-03-29] MEDS ORDERED: METOPROLOL TAR 25 MG TAB ONE (19:04)
[2021-03-29] MEDS ORDERED: NA CHLORIDE 0.9% 1,000 ML ONE (19:05)
[2021-03-29] MEDS ORDERED: D5 0.45 NS 0 ML IV ONE (23:22)
[2021-03-30 05:40] LABS: Urine Appearance CLEAR (Clear); Urine Bilirubin NEGATIVE (Negative); Urine Blood NEGATIVE (Negative); Urine Color YELLOW (Yellow); Urine Glucose NEGATIVE (Negative); Urine Microscopic Reflex NO UMIC; Urine Protein NEGATIVE (Negative); Urine Specific Gravity 1.015 (1.005-1.030)
[2021-03-30 06:03] LABS: Absolute Lymphocytes (CBC) 2.1 K/uL (0.7-4.9); Basophils % 1.1 % (0-1.3); Hematocrit 29.4 % (39.6-49.0); Lymphocytes % 45.5 % (15.3-44.8); MPV 8.5 fL (7.6-11.3); RBC Red Blood Cell Count 4.26 M/uL (4.33-5.43)
[2021-03-30 06:18] LABS: Protime INR 1.32
[2021-03-30 06:20] LABS: ALT/SGPT 29 U/L (12-78); AST/SGOT 38 U/L (15-37); Albumin 2.3 g/dL (3.4-5.0); Alkaline Phosphatase 111 U/L (45-117); BUN Blood Urea Nitrogen 9 mg/dL (7-18); Bicarbonate 23 mmol/L (21-32); Bilirubin Total 1.9 mg/dL (0.2-1.0); Glucose Level 96 mg/dL (74-106); HDL Cholesterol 46 mg/dL (40-60); LDL Cholesterol, Calculated 71 (<130); Potassium 3.4 mmol/L (3.5-5.1); Protein, Total 6.3 g/dL (6.4-8.2); Sodium Level 143 mmol/L (136-145); Troponin I 0.11 ng/mL (0.0-0.045)
[2021-03-30] MEDS: NA CHLORIDE 0.9% 1,000 ML IV SCH ×2 (06:22→13:00)
[2021-03-30] MEDS: METOPROLOL TAR 25 MG TAB PO SCH ×2 (06:23→17:57)
[2021-03-30 07:17] LABS: Blood Morphology Comment NOTED (NOT SEEN); Platelet Estimate DECR
[2021-03-30 07:18] LABS: Anisocytosis 1+; Hypochromasia 1+; Ovalocytes 1+
[2021-03-30] MEDS: ASPIRIN EC 81 MG TAB PO SCH (08:26)
--- NOTE | 2021-03-30 10:50 | P.HP ---
Certification for Inpatient Patient admitted to: Inpatient With expected LOS: >2 Midnights Patient will require the following post-hospital care: None Practitioner: I am a practitioner with admitting privileges, knowledge of patient current condition, hospital course, and medical plan of care. Services: Services provided to patient in accordance with Admission requirements found in Title 42 Section 412.3 of the Code of Federal Regulations Patient History Date of Service: 03/29/21 Reason for admission: Altered mental status History of Present Illness: Patient is a 65-year-old gentleman who comes into the hospital with altered mentation. Apparently patient was at home and the daughter was unable to get a hold of the patient. When they arrived to the scene patient was in the front yard and he had urinated on himself. He was confused and he was brought into the emergency room for further evaluation. In the emergency room, lab data did not reveal any significant abnormality. Chest x-ray was unremarkable. Ammonia level was normal. Patient has a long history of liver cirrhosis. Per family patient mentation is more alert than when he arrived. Patient be admitted for further evaluation. Allergies lorazepam [From Ativan] Allergy (Severe, Verified 10/06/20 04:24) Shortness of breath Home Medications: Carvedilol [Coreg] 6.25 mg PO BIDWM 01/11/20 Folic Acid 1 mg PO DAILY 01/11/20 Pantoprazole [Protonix Tab*] 40 mg PO DAILY 01/11/20 Spironolactone 100 mg PO BID 01/11/20 Furosemide [Lasix*] 40 mg PO BID 09/18/20 Insulin -Regular Human [Novolin -R*] See Protocol SQ ACHS 09/18/20 Insulin Glargine,Hum.rec.anlog [Ivonne Paez] 50 unit SQ DAILY 09/18/20 Rifaximin [Xifaxan] 550 mg PO BID 09/18/20 Trazodone [Desyrel] 50 mg PO BEDTIME 09/18/20 Lactulose [Cephulac*] 30 ml PO TID #1 l 10/06/20 - Past Medical/Surgical History Diabetic: Yes -: DM II -: HTN -: CHF -: Liver cirrhosis, -: Hyperlipidemia -: Obesity -: GERD -: Gastric varices -: H pylori gastritis -: Hernia repair Psychosocial/ Personal History: Patient has significant other. - Family History Father Medical History: Diabetes Mother Medical History: Liver disease - Social History Smoking Status: Unknown if ever smoked Review of Systems is unable to be obtained Physical Examination - Vital Signs Temperature: 97.8 F Blood Pressure: 118/58 Pulse: 55 Respirations: 17 Pulse Ox (%): 100 - Physical Exam General: Alert, In no apparent distress, Oriented x1, Confused HEENT: Atraumatic, PERRLA, Mucous membr. moist/pink, EOMI, Sclerae nonicteric Neck: Supple, 2+ carotid pulse no bruit, No LAD, Without JVD or thyroid abnormality Respiratory: Clear to auscultation bilaterally, Normal air movement Cardiovascular: Regular rate/rhythm, Normal S1 S2, Systolic murmur Gastrointestinal: Normal bowel sounds, Soft and benign, No tenderness, No rebound, No guarding, Distended Musculoskeletal: No clubbing, No tenderness, Swelling Integumentary: No rashes Neurological: Normal tone, Sensation intact, Cranial nerves 3-12 intact, Abnormal gait, Abnormal strength, Abnormal affect Lymphatics: No axilla or inguinal lymphadenopathy Assessment & Plan - Problems (Diagnosis) (1) Altered mental status Current Visit: Yes Status: Acute (2) Hepatic encephalopathy Current Visit: Yes Status: Acute (3) Alcoholic cirrhosis Current Visit: No Status: Chronic Qualifiers: (4) Anemia Current Visit: No Status: Chronic (5) Diabetes mellitus Onset Date: 05/24/18 Current Visit: No Status: Chronic Qualifiers: (6) HTN (hypertension) Onset Date: 05/24/18 Current Visit: No Status: Chronic - Plan 1. Continue monitoring neuro status. 2. Speech therapy evaluation 3. Anti-platelet therapy and statin therapy 4. Will start physical therapy in a.m. 5. MRI of the brain unremarkable 6. Physically patient is doing well and may benefit more from outpatient physical therapy and inpatient rehab 7. Neurology consultation 8. Permissive hypertension and gradual blood pressure control 9. GI and DVT prophylaxis Discharge Plan: Home Plan to discharge in: Greater than 2 days - Advance Directives Does patient have a Living Will: No Does patient have a Durable POA for Healthcare: Yes - Code Status/Comfort Care Code Status Assessed: Yes Code Status: Full Code Critical Care: No Time Spent Managing PTS Care (In Minutes): 40
--- NOTE | 2021-03-30 11:50 | EKG ---
Test Date: 2021-03-29 Test Time: 10:03:26 Cotton Classer Aide: SAVANNAH MEASUREMENT RESULTS: Intervals: Rate: 80 VA: 166 QRSD: 86 QT: 432 QTc: 498 [place]: P: 53 VA: 166 QRS: -43 T: 23 INTERPRETIVE STATEMENTS: Normal sinus rhythm Left axis deviation Nonspecific ST and T wave abnormality Prolonged QT Abnormal ECG Compared to ECG 10/06/2020 04:14:29 Left-axis deviation now present ST (T wave) deviation now present Prolonged QT interval now present Fusion complex(es) no longer present Left anterior fascicular block no longer present Electronically Signed On 03-30-21 11:46:28 CDT by Nemesio Rachel
[2021-03-30] MEDS ORDERED: NA CHLORIDE 0.9% 1,000 ML IV SCH (17:09)
[2021-03-30] MEDS: FUROSEMIDE 40 MG TABLET PO SCH (20:17)
[2021-03-30] MEDS: HOME MED (Rifaximin 550 MG Tab) PO SCH (20:20)
[2021-03-30] MEDS ORDERED: TRAZODONE 50 MG TABLET PO SCH (21:00)
--- NOTE | 2021-03-30 21:12 | CON ---
Consultation on the patient for altered mental status. History Of Present Illness: Mr. Cardona is a 65-year-old patient with multiple medical problems includi ng alcohol and liver cirrhosis. He has actually had a liver transplant about 3 years ago, hypertensi on, diabetes mellitus that is insulin dependent, who was at baseline level of functioning until he wa s found at home by his daughter in the front yard. He had urinated on himself. He was disoriented t o situation and place, following instructions and was brought to [facility]. His family bel ieves that his ammonia level was elevated. However, at [facility] his ammonia level was nor mal. He does not have any other significant abnormalities in the lab to explain this. Mental status eventually began to return back to baseline just as he arrived to the hospital. His head CT scan an d brain MRI showed no evidence of any acute ischemic or hemorrhagic change. However, the MRI did sug gest possibility of normal-pressure hydrocephalus. Given that it appears that the ventricular size w as out of proportion to the degree of atrophy seen, which is likely related to small vessel ischemic disease. The patient has never had a high-volume lumbar puncture to determine if normal-pressure hyd rocephalus impact the ability to ambulate. At this point, he is back to baseline as per the patient and his at the bedside. shortness of breath. Medications: Coreg 6.25 mg twice daily, folic acid 1 mg daily, Protonix 40 mg daily, spironolactone 100 mg twice daily, Lasix 40 mg twice daily, Toujeo 50 units daily, rifaximin 550 mg twice daily, tra zodone 50 mg at bedtime, lactulose 30 mg 3 times daily. It should be noted that the patient's sa id he had actually stopped taking his lactulose for about a month prior to his worsening symptoms. Past Medical History: As noted, diabetes mellitus, insulin dependent, hypertension, congestive heart failure, liver cirrhosis status post liver transplant, dyslipidemia, obesity, gastroesophageal reflu x disease, and gastric varices. Surgical History: Hernia repair. Family History: Diabetes in father, disease in mother. Social History: Denies any recent alcohol, tobacco, or IV drug use. Drinking more than 3 years ago. Review of Systems: As noted no recent fevers, chills, nausea, vomiting, myalgias, arthralgias. No recent rash, headache . Physical Examination: Vital Signs: Blood pressure 138/73, pulse 75, respiratory rate of 15, temperature 97.8, oxygen satur ation 99% on room air. General: Mr. Cardona is resting comfortably in bed with at bedside. HEENT: He is normocephalic, atraumatic. Sclerae anicteric. Oropharynx is pink and moist. Neck: Supple. Chest: Clear. Heart: Regular. Extremities: Show no clubbing, cyanosis. Abdomen: Obese. Neurological: He is alert and oriented to situation, place, and person. He is off on the exact date , but otherwise fully oriented. Cranial nerves 2-12 showed no focal deficits. Motor examination in the upper and lower extremities, there is diffuse weakness at least 4+ strength and symmetric upper a nd lower extremities. Coordination is slow, but intact in upper and lower extremities. No tremors n oted. Normal tone. He has symmetric reflexes. Laboratories: Work shows white blood cell count 4.7, hemoglobin 9.2, platelets 84. INR 1.32. Chemi stries show potassium 3.4, chloride 112, calcium 8.0, glucose range 80 to 165, total bilirubin 1.9, A ST 38, ALT 29, alkaline phosphatase 111. Urinalysis; 2+ urobilinogen and COVID-19 test negative. Assessment: Mr. Cardona is a 65-year-old patient with multiple reasons for encephalopathy. He has reso lved his altered mental status. He was found loss of urine, assessing the possibility of a seizure a s etiology of his condition. His ammonia level was normal, so not likely to be playing a big role. No evidence of infection as well. Plan: Continue medications as indicated. Next he has low platelets, however, may consider an aspiri n 81 mg daily, folic acid 1 mg daily. Continue aggressive management of diabetes mellitus, hypertens ion, and he may be discharged home and perhaps to outpatient physical therapy if it is needed to improve his balance, coordination, and gait and decrease his fall risk. LB/MODL Voice ID: [id number] Report ID: [id number]
[2021-03-31] MEDS: METOPROLOL TAR 25 MG TAB PO SCH (06:00)
[2021-03-31] MEDS ORDERED: carvediloL 6.25 MG TAB PO SCH (08:00)
[2021-03-31] MEDS ORDERED: PANTOPRAZOLE 40MG TABLET PO SCH (09:00)
[2021-03-31] MEDS: ASPIRIN EC 81 MG TAB PO SCH (09:00)
[2021-03-31] MEDS ORDERED: FOLIC ACID 1 MG TABLET PO SCH (09:00)
[2021-03-31] MEDS ORDERED: HOME MED 1 EA UNK (Insulin Glargine,Hum.Rec.Anlog [Toujeo Solostar] 300 UNIT/ML Insuln.Pen SQ SCH (09:00)
[2021-03-31] MEDS: HOME MED (Rifaximin 550 MG Tab) PO SCH (09:00)
[2021-03-31] MEDS ORDERED: INSULIN GLARGINE 100 UNITS/ML SQ SCH (09:00)
[2021-03-31] MEDS: FUROSEMIDE 40 MG TABLET PO SCH (09:01)
[2021-03-31 11:00] VITALS: O2SAT 99
[2021-03-31 12:07] VITALS: BP 108/57; TEMP 97.6
--- NOTE | 2021-03-31 14:01 | ECHO ---
HEIGHT: 5 ft 11 in WEIGHT: 214 lb 15.917 oz DATE OF STUDY: 03/30/[address]: Ishan Finnegan MD 2-DIMENSIONAL: YES M.MODE: YES DOPPLER: YES COLOR FLOW: YES TDS: PORTABLE: DEFINITY: BUBBLE STUDY: DIAGNOSIS: ELEVATED TROPONIN CARDIAC HISTORY: CATHERIZATION: NO SURGERY: NO PROSTHETIC VALVE: NO PACEMAKER: NO MEASUREMENTS (cm) DIASTOLIC (NORMALS) SYSTOLIC (NORMALS) IVSd 1.1 (0.6-1.2) LA Diam 3.7 (1.9-4.0) LVEF 64% LVIDd 4.8 (3.5-5.7) LVIDs 3.1 (2.0-3.5) %FS 35% LVPWd 1.2 (0.6-1.2) Ao Diam 3.3 (2.0-3.7) 2 DIMENSIONAL ASSESSMENT: RIGHT ATRIUM: LEFT ATRIUM: RIGHT VENTRICLE: LEFT VENTRICLE: TRICUSPID VALVE: MITRAL VALVE: PULMONIC VALVE: AORTIC VALVE: PERICARDIAL EFFUSION: AORTIC ROOT: LEFT VENTRICULAR WALL MOTION: DOPPLER/COLOR FLOW: COMMENTS: NORMAL 2-DIMENSIONAL ECHOCARDIOGRAM WITH DOPPLER. NO WALL MOTION ABNORMALITY. NO EFFUSION. TECHNOLOGIST: LILY FERGUSON
--- NOTE | 2021-04-01 11:08 | EEG ---
CHART: [id number] TEST ID#: [id number] DATE OF STUDY: 03/30/2021 THE EEG WAS RECORDED PORTABLE IN THE PATIENT'S ROOM ON A 17 CHANNEL MACHINE. ELECTRODES WERE APPLIED IN THE USUAL MANNER USING THE INTERNATIONAL 10-20 SYSTEM. THE WAKING BACKGROUND RHYTHM IN THIS RECORD CONSISTS OF POORLY DEVELOPED AND POORLY ORGANIZED WAVES OF 4-6 HZ., [*] WHICH DO NOT ATTENUATE NORMALLY WITH EYE OPENING. MODERATE VOLTAGE 1.5-3 HZ ACTIVITY IS EXPRESSED IN THE FRONTAL REGIONS. LOW-VOLTAGE 15-18 HZ ACTIVITY IS EXPRESSED IN THE FRONTAL AND CENTRAL REGIONS. THERE ARE NO FOCAL OR LATERALIZING FEATURES. NO EPILEPTIFORM ACTIVITY APPEARS. SLEEP DID NOT OCCUR. HYPERVENTILATION WAS NOT PERFORMED. PHOTIC STIMULATION PRODUCED NO DRIVING BILATERALLY. IMPRESSION: THIS IS A MODERATELY ABNORMAL EEG DUE TO A MODERATELY SLOW BACKGROUND. THIS IS A NON-SPECIFIC FINDING INDICATING THE PRESENCE OF A MODERATE DIFFUSE DISTURBANCE IN CEREBRAL FUNCTION. NO EPILEPTIFORM ACTIVITY OCCURRED DURING THIS STUDY.
--- NOTE | 2021-04-05 11:06 | CON ---
Date of Consultation: 03/30/2021 Reason For Consultation: Altered mental status. History Of Present Illness: Mr. Vidal is 65. Has a history of ADD, ADHD, cirrhosis, diabetes, hypert ension, and psoriasis, admitted with confusion. He did not really have any cardiac symptoms per se, but blood work showed slightly elevated troponin and I was consulted. Allergies: INCLUDE ATIVAN. Review of Systems: Negative. Social History: Negative. Family History: Negative. Medications: At home included carvedilol, Lasix, insulin, lactulose, metoprolol, Protonix, _, spironolactone, and trazodone. Physical Examination: Vital Signs: Stable. He was afebrile. Sinus rhythm. HEENT: Negative. Neck: Supple with no bruit. Chest: Clear. Cardiac: Revealed a regular rhythm and rate. No murmurs, gallops, or rubs. Abdomen: Benign. Extremities: Revealed no clubbing, cyanosis, or edema. Diagnostic Data: EKG is nonspecific. Chest x-ray is negative. Creatinine is normal. Hemoglobin 10 .5. Glucose was 165. Troponin was 0.11. Impression And Plan: Elevated troponin, not clinically significant, unrelated to the altered mental status, may be demand ischemia secondary to slight anemia. The patient is presently on aspirin, Love nox, Lasix, metoprolol, pantoprazole. He should not be on carvedilol and metoprolol at the same time , but nevertheless, I think a neurological consultation has been obtained. I think an echocardiogram is indicated to rule out wall motion abnormalities. I do not suspect that we are going to find anyt rani on the echo. There is no need for any further cardiac workup at this point. His other problems including ADD, ADHD, and cirrhosis as well as hypertension seems to be controlled. His diabetes is borderline controlled and that needs to be addressed by primary care physician. If the echocardiogra m shows any abnormalities, we will readdress these issues. EDDI/LEXIE Voice ID: [id number] Report ID: [id number]
== END 2021-03-31 13:00 | disposition home health service (06) | DRG 442 ==
LOC: ER 08:42 → ERHOLD 16:26 → 2ND 21:20
PROVIDERS: ADMIT Hospitalist; ATTEND Hospitalist
DX: K72.90 Hepatic failure, unspecified without coma (principal); Z94.4 Liver transplant status; K70.30 Alcoholic cirrhosis of liver without ascites; I10 Essential (primary) hypertension; E11.9 Type 2 diabetes mellitus without complications; E78.5 Hyperlipidemia, unspecified; K21.9 Gastro-esophageal reflux disease without esophagitis; D64.9 Anemia, unspecified; R77.8 Other specified abnormalities of plasma proteins; Z88.8 Allergy status to other drugs, medicaments and biological substances; Z79.4 Long term (current) use of insulin; Z79.899 Other long term (current) drug therapy; Z20.822 Contact with and (suspected) exposure to COVID-19
CPT/HCPCS: 36415; 70450; 70551; 71045; 80048; 80053; 80061; 80076; 81003; 82140; 82947; 83735; 83880; 84484; 85025; 85610; 85730; 93005; 93306; 95819; 99285; J1650; J7030; J7799; U0003

== ENCOUNTER 2021-04-07 07:28 | Day surgery (SDC) | payer OTHER ==
[2021-04-07] MEDS ORDERED: NA CHLORIDE 0.9% 1,000 ML ONE (07:38)
[2021-04-07] MEDS ORDERED: LIDOCAINE 1% MPF 5 ML VIAL ONE (08:05)
[2021-04-07] MEDS ORDERED: propofoL 200 MG/20 ML VIAL IV ONE ×2 (08:05→08:29)
[2021-04-07 09:00] VITALS: O2SAT 100
[2021-04-07 09:17] VITALS: BP 120/57; TEMP 97.5
== END 2021-04-07 09:12 | disposition home or self-care (01) ==
LOC: OR 07:28
PROVIDERS: ATTEND Internal Medicine Gastroenterology
PROC: 06L38CZ Occlusion of Esophageal Vein with Extraluminal Device, Via Natural or Artificial Opening Endoscopic (ICD-10-PCS; principal; 2021-04-07 08:45)
DX: R13.10 Dysphagia, unspecified (principal); I85.00 Esophageal varices without bleeding; K29.70 Gastritis, unspecified, without bleeding; K76.6 Portal hypertension; K31.89 Other diseases of stomach and duodenum
CPT/HCPCS: 82947 ×2; 43244; J2704; J7030

== ENCOUNTER 2021-05-10 10:00 | Observation (INO) | payer OTHER ==
--- OUTSIDE RECORDS SUMMARY | 2021-05-10 10:16 | XMS REPORT | Continuity of Care Document ---
:1955 Author Organization [facility] t Address [address] [place] [address] [address] [place] [address] Care Team Providers Name Role Phone KIMBERLEY Primary Care Physician Unavailable Carmine Salvador Attending Clinician Unavailable LOUIS Attending Clinician Unavailable QUAN WASHINGTON Attending Clinician Unavailable Kimberley GOMEZ Attending Clinician Attending Clinician Unavailable Singer CAI Attending Clinician TIMOTEO GUIDRY Attending Clinician Unavailable Nurse, Pob Immunization Attending Clinician Unavailable Timoteo Guidry DO Attending Clinician KIMBERLEY Attending Clinician Unavailable MADDIE HUBER Attending Clinician Unavailable Igor LAGUNA Attending Clinician Unavailable Heather Bull DO Attending Clinician Doctor Unassigned, Name Attending Clinician Unavailable Maury San NP Attending Clinician Nathen LOPEZ Attending Clinician Unavailable MONAE AN Attending Clinician Unavailable RMAAN ANAYA Attending Clinician Unavailable SHANNON VILLEGAS Attending Clinician Unavailable Yumiko Rod MD Attending Clinician BUBBA LI Attending Clinician Unavailable LOUIS Admitting Clinician Unavailable Admitting Clinician Unavailable QUAN WASHINGTON Admitting Clinician Unavailable COMPA Admitting Clinician Unavailable MONAE AN Admitting Clinician Unavailable BUBBA LI Admitting Clinician Unavailable Payers Payer Name Policy Type Policy Number Effective Date Expiration Date [place] MEDICARE PART A [id number] 2018 \\T\\ B 00:00:00 MEDICARE A B [id number] 2018 00:00:00 COVID VACCINE [id number] 2020-06-28 ADMIN / TESTING 00:00:00 Problems Condition Condition Condition Status Onset Resolution Last Treating Co mments Source Name Details Category Date Date Treatment Clinician Date Need for Need for Disease Active 2018-05 Unive rs hepatitis hepatitis 2-24 ity of C C 00:00: [place] screening screening 00 Medi jeevan test test Branch Type 2 Type 2 Disease Active 2018-05 Univers diabetes diabetes 2-20 ity of mellitus mellitus 00:00: [place] without without 00 Medical complicati complicati Br anch on, on, without without long-term long-term current current use of use of insulin insulin 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 2-20 it y of ia ia 00:00: [place] 00 Medical Branch Gastroesop Gastroesop Disease Active 2018-05 U angelina hageal hageal 2-20 ity of reflux reflux 00:00: [place] disease disease 00 Medical without without Branch esophagiti esophagiti s s Wheezing Wheezing Disease Active 2018-05 Unive rs 2-20 ity of 00:00: [place] 00 Medical Branch Urticaria Urticaria Disease Active 2018-05 Uni vers 2-20 ity of 00:00: [place] 00 Medical Branch Primary Primary Disease Active 2018-05 Univers insomnia insomnia 2-20 ity of 00:00: [place] 00 Medical Branch Psoriasifo Psoriasifo Disease Active 2018-05 U angelina rm rm 2-20 ity of dermatitis dermatitis 00:00: [place] 00 Medical [place] Decreased Decreased Disease Active Uni vers platelet platelet 4-23 ity of count count 00:00: [place] 00 Medical Branch Ventral Ventral Disease Active Univers hernia hernia 2-05 ity of 00:00: [place] 00 Medical Branch 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 Added automatic ally from request for surgery [id number] Ventral Ventral Disease Active Overview: Univ ers hernia hernia 06-26 Added ity of without without 00:00: automatic [place] obstructio obstructio 00 ally from Medical n or n or request Branch gangrene gangrene for surgery [id number] Screening Screening Disease Active 2017-05 Overview: Univers for for 07-25 Formattin ity of colorectal colorectal 00:00: g of this [place] cancer cancer 00 note Medical might be Branch different from the original. Added automatic ally from request for surgery [id number] Psoriasis Psoriasis Disease Active 2017-05 Uni vers 1-14 ity of 00:00: [place] [address] Medical Branch Essential Essential Disease Active 2017-05 Uni vers hypertensi hypertensi 1-14 it y of on on 00:00: [place] [address] Medical Branch Obesity Obesity Disease Active Univers (BMI (BMI 4-23 ity of 30-39.9) 30-39.9) 00:00: [place] [address] Medical Branch Exomphalos Exomphalos Disease Active U nivers -07 ity of 00:00: [place] [address] Medical [place] Allergies, Adverse Reactions, Alerts Allergy Allergy Status Severity Reaction(s) Onset Inactive Treating Comm ents Source Name Type Date Date Clinician NO KNOWN Drug Active Univers ALLERGIE Class ity of S [facility] NO KNOWN Allergy Active [facility] Social History Social Habit Start Date Stop Date Quantity Comments Source Exposure to Not sure [facility] SARS-CoV-2 [place] Medical (event) Branch Alcohol intake 2021-04-01 2021-04-01 Current University of 00:00:00 00:00:00 non-drinker of [facility] alcohol (finding) Branch Tobacco use and 2018-06-06 2018-06-06 Never used Universit y of exposure 00:00:00 00:00:00 [facility] History of 2017-06-06 Cigarette Smoker Universi ty of tobacco use 00:00:00 [facility] Sex [birth year] Universit y of 00:00:00 00:00:00 [facility] Smoking Status Start Date Stop Date Source Former smoker 2018-06-06 00:00:00 2018-06-06 00:00:00 Universi ty of [facility] Unknown if ever smoked Universit y [facility] Medications Ordered Filled Start Stop Current Ordering Indication Dosage Frequency Signature Comments Components Source Medication Medication Date Date Medication? Clinician (SIG) Name Name FUROSEMIDE 2020-05 Yes [id number] TAKE ONE Univers 40 mg 0-20 (1) TABLET ity of tablet 00:00: BY MOUTH 00 TWICE Medical DAILY IN Branch THE MORNING AND EVENING FUROSEMIDE 2020-05 Yes [id number] TAKE ONE Univers 40 mg 0-20 (1) TABLET ity of tablet 00:00: BY MOUTH 00 TWICE Medical DAILY IN Branch THE MORNING AND EVENING FUROSEMIDE 2020-05 Yes [id number] TAKE ONE Univers 40 mg 0-20 (1) TABLET ity of tablet 00:00: BY MOUTH TWICE Medical DAILY IN Branch THE MORNING AND EVENING PANTOPRAZOL 2020-05 Yes [id number] Take 1 Univers E 40 mg EC 0-19 tablet by ity of tablet 00:00: mouth once [place] daily Medical Branch PANTOPRAZOL 2020-05 Yes [id number] Take 1 Univers E 40 mg EC 0-19 tablet by ity of tablet 00:00: mouth once [place] daily Medical Branch PANTOPRAZOL 2020-05 Yes [id number] Take 1 Univers E 40 mg EC 0-19 tablet by ity of tablet 00:00: mouth once [place] daily Medical Branch PANTOPRAZOL 2020-05 Yes [id number] Take 1 Univers E 40 mg EC 0-19 tablet by ity of tablet 00:00: mouth once [place] daily Medical Branch rifAXIMin Yes [id number] 550mg Take 1 Univers 550 mg 5-19 tablet by ity of tablet 00:00: mouth 2 (two) Medical times Branch daily. furosemide Yes [id number] 40mg Take 1 Univers 40 mg 5-19 tablet by ity of tablet 00:00: mouth [place] 00 every Medical morning Branch and evening. hydrOXYzine Yes [id number] 50mg Take 1 U nivers 50 mg 5-19 tablet by ity of tablet 00:00: mouth 3 00 (three) Medical times Branch daily as needed for Itching. lisinopriL Yes [id number] 20mg Take 1 U nivers 20 mg 5-19 tablet by ity of tablet 00:00: mouth [place] 00 daily. Medical Branch spironolact 0 Yes [id number] 25mg Take 1 Univers one 25 mg 5-19 tablet by ity o f tablet 00:00: mouth (two) Medical times Branch daily. carvediloL Yes [id number] 3.125mg Take 1 Univers 3.125 mg 5-19 tablet by ity of tablet 00:00: mouth (two) Medical times Branch daily with meals. Pitavastati Yes [id number] 2mg Take 2 mg Univers n (LIVALO) 5-19 by mouth ity o f 2 mg Tab 00:00: daily. Medical Branch pantoprazol Yes [id number] 40mg Take 1 Univers e 40 mg EC 5-19 tablet by ity of tablet 00:00: mouth daily. Medical Branch metFORMIN Yes [id number] 500mg Take 1 Univers 500 mg 5-19 tablet by ity of tablet 00:00: mouth (two) Medical times Branch daily with meals. Blood-Gluco Yes [id number] Use BID, Univers se Meter 5-19 DX E11.9 ity of (ACCU-CHEK 00:00: ([facility] GUIDE 00 upon [facility] GLUCOSE insurance Branch METER) Misc approval) ACCU-CHEK GUIDE blood sugar Yes [id number] Use BID, Univers diagnostic 5-19 DX E11.9 ity o f (ACCU-CHEK 00:00: ([employer] [place] GUIDE TEST 00 upon Medical STRIPS) insurance Branch strip approval) rifAXIMin Yes [id number] 550mg Take 1 Univers 550 mg 5-19 tablet by ity of tablet 00:00: mouth (two) Medical times Branch daily. furosemide 2020- Yes [id number] 40mg Take 1 Univers 40 mg 5-19 tablet by ity of tablet 00:00: mouth 00 every Medical morning Branch and evening. hydrOXYzine 0 Yes [id number] 50mg Take 1 U nivers 50 mg 5-19 tablet by ity of tablet 00:00: mouth 3 (three) Medical times Branch daily as needed for Itching. lisinopriL 0 Yes [id number] 20mg Take 1 U nivers 20 mg 5-19 tablet by ity of tablet 00:00: mouth 00 daily. Medical Branch spironolact 2020-0 Yes [id number] 25mg Take 1 Univers one 25 mg 5-19 tablet by ity o f tablet 00:00: mouth 2 (two) Medical times Branch daily. carvediloL 0 Yes [id number] 3.125mg Take 1 Univers 3.125 mg 5-19 tablet by ity of tablet 00:00: mouth (two) Medical times Branch daily with meals. Pitavastati Yes [id number] 2mg Take 2 mg Univers n (LIVALO) 5-19 by mouth ity o f 2 mg Tab 00:00: daily. Medical Branch pantoprazol 2020- Yes [id number] 40mg Take 1 Univers e 40 mg EC 5-19 tablet by ity of tablet 00:00: mouth daily. Medical Branch metFORMIN Yes [id number] 500mg Take 1 Univers 500 mg 5-19 tablet by ity of tablet 00:00: mouth (two) Medical times Branch daily with meals. Blood-Gluco Yes [id number] Use BID, Univers se Meter 5-19 DX E11.9 ity of (ACCU-CHEK 00:00: ([facility] GUIDE 00 upon [facility] GLUCOSE insurance Branch METER) Misc approval) ACCU-CHEK GUIDE blood sugar 2020-0 Yes [id number] Use BID, Univers diagnostic 5-19 DX E11.9 ity o f (ACCU-CHEK 00:00: ([employer] GUIDE TEST 00 upon Medical STRIPS) insurance Branch strip approval) rifAXIMin 2020- Yes [id number] 550mg Take 1 Univers 550 mg 5-19 tablet by ity of tablet 00:00: mouth (two) Medical times Branch daily. furosemide 2020-0 Yes [id number] 40mg Take 1 Univers 40 mg 5-19 tablet by ity of tablet 00:00: mouth 00 every Medical morning Branch and evening. hydrOXYzine 0 Yes [id number] 50mg Take 1 U nivers 50 mg 5-19 tablet by ity of tablet 00:00: mouth 3 (three) Medical times Branch daily as needed for Itching. lisinopriL 2021-0 Yes [id number] 20mg Take 1 U nivers 20 mg 5-19 tablet by ity of tablet 00:00: mouth daily. Medical Branch spironolact 2020-0 Yes [id number] 25mg Take 1 Univers one 25 mg 5-19 tablet by ity o f tablet 00:00: mouth 2 (two) Medical times Branch daily. carvediloL 2020-0 Yes [id number] 3.125mg Take 1 Univers 3.125 mg 5-19 tablet by ity of tablet 00:00: mouth 2 (two) Medical times Branch daily with meals. Pitavastati 2020- Yes [id number] 2mg Take 2 mg Univers n (LIVALO) 5-19 by mouth ity o f 2 mg Tab 00:00: daily. Medical Branch pantoprazol 2020-0 Yes [id number] 40mg Take 1 Univers e 40 mg EC 5-19 tablet by ity of tablet 00:00: mouth daily. Medical Branch metFORMIN 2020-0 Yes [id number] 500mg Take 1 Univers 500 mg 5-19 tablet by ity of tablet 00:00: mouth (two) Medical times Branch daily with meals. Blood-Gluco 2020- Yes [id number] Use BID, Univers se Meter 5-19 DX E11.9 ity of (ACCU-CHEK 00:00: ([employer] [place] GUIDE 00 upon Medical GLUCOSE insurance Branch METER) Misc approval) ACCU-CHEK GUIDE blood sugar 2020-0 Yes [id number] Use BID, Univers diagnostic 5-19 DX E11.9 ity o f (ACCU-CHEK 00:00: ([employer] [place] GUIDE TEST 00 upon Medical STRIPS) insurance Branch strip approval) rifAXIMin 2020-0 Yes [id number] 550mg Take 1 Univers 550 mg 5-19 tablet by ity of tablet 00:00: mouth (two) Medical times Branch daily. furosemide 2020-0 Yes [id number] 40mg Take 1 Univers 40 mg 5-19 tablet by ity of tablet 00:00: mouth 00 every Medical morning Branch and evening. hydrOXYzine 2020-0 Yes [id number] 50mg Take 1 U nivers 50 mg 5-19 tablet by ity of tablet 00:00: mouth 3 (three) Medical times Branch daily as needed for Itching. lisinopriL 2020-0 Yes [id number] 20mg Take 1 U nivers 20 mg 5-19 tablet by ity of tablet 00:00: mouth daily. Medical Branch spironolact 2020-0 Yes [id number] 25mg Take 1 Univers one 25 mg 5-19 tablet by ity o f tablet 00:00: mouth 2 (two) Medical times Branch daily. carvediloL 2020-0 Yes [id number] 3.125mg Take 1 Univers 3.125 mg 5-19 tablet by ity of tablet 00:00: mouth 2 (two) Medical times Branch daily with meals. Pitavastati 2020- Yes [id number] 2mg Take 2 mg Univers n (LIVALO) 5-19 by mouth ity o f 2 mg Tab 00:00: daily. Medical Branch pantoprazol 2020-0 Yes [id number] 40mg Take 1 Univers e 40 mg EC 5-19 tablet by ity of tablet 00:00: mouth daily. Medical Branch metFORMIN 2020-0 Yes [id number] 500mg Take 1 Univers 500 mg 5-19 tablet by ity of tablet 00:00: mouth (two) Medical times Branch daily with meals. Blood-Gluco 2020- Yes [id number] Use BID, Univers se Meter 5-19 DX E11.9 ity of (ACCU-CHEK 00:00: ([facility] GUIDE 00 upon Medical GLUCOSE insurance Branch METER) Misc approval) ACCU-CHEK GUIDE blood sugar 2020-0 Yes [id number] Use BID, Univers diagnostic 5-19 DX E11.9 ity o f (ACCU-CHEK 00:00: ([employer] [place] GUIDE TEST 00 upon Medical STRIPS) insurance Branch strip approval) rifAXIMin 2020-0 Yes [id number] 550mg Take 1 Univers 550 mg 5-19 tablet by ity of tablet 00:00: mouth 2 (two) Medical times Branch daily. furosemide 2020-0 Yes [id number] 40mg Take 1 Univers 40 mg 5-19 tablet by ity of tablet 00:00: mouth 00 every Medical morning Branch and evening. hydrOXYzine 2020-0 Yes [id number] 50mg Take 1 U nivers 50 mg 5-19 tablet by ity of tablet 00:00: mouth 3 (three) Medical times Branch daily as needed for Itching. lisinopriL 2020-0 Yes [id number] 20mg Take 1 U nivers 20 mg 5-19 tablet by ity of tablet 00:00: mouth daily. Medical Branch spironolact 2020-0 Yes [id number] 25mg Take 1 Univers one 25 mg 5-19 tablet by ity o f tablet 00:00: mouth (two) Medical times Branch daily. carvediloL 2020-0 Yes [id number] 3.125mg Take 1 Univers 3.125 mg 5-19 tablet by ity of tablet 00:00: mouth (two) Medical times Branch daily with meals. Pitavastati 2020-0 Yes [id number] 2mg Take 2 mg Univers n (LIVALO) 5-19 by mouth ity o f 2 mg Tab 00:00: daily. Medical Branch metFORMIN 2020-0 Yes [id number] 500mg Take 1 Univers 500 mg 5-19 tablet by ity of tablet 00:00: mouth (two) Medical times Branch daily with meals. Blood-Gluco 2020-0 Yes [id number] Use BID, Univers se Meter 5-19 DX E11.9 ity of (ACCU-CHEK 00:00: ([employer] GUIDE 00 upon Medical GLUCOSE insurance Branch METER) Misc approval) ACCU-CHEK GUIDE blood sugar 2020-0 Yes [id number] Use BID, Univers diagnostic 5-19 DX E11.9 ity o f (ACCU-CHEK 00:00: ([employer] [place] GUIDE TEST 00 upon Medical STRIPS) insurance Branch strip approval) rifAXIMin 2020-0 Yes [id number] 550mg Take 1 Univers 550 mg 5-19 tablet by ity of tablet 00:00: mouth (two) Medical times Branch daily. hydrOXYzine 2020-0 Yes [id number] 50mg Take 1 U nivers 50 mg 5-19 tablet by ity of tablet 00:00: mouth 3 (three) Medical times Branch daily as needed for Itching. lisinopriL 2020-0 Yes [id number] 20mg Take 1 U nivers 20 mg 5-19 tablet by ity of tablet 00:00: mouth 00 daily. Medical Branch spironolact 0 Yes [id number] 25mg Take 1 Univers one 25 mg 5-19 tablet by ity o f tablet 00:00: mouth 2 (two) Medical times Branch daily. carvediloL 0 Yes [id number] 3.125mg Take 1 Univers 3.125 mg 5-19 tablet by ity of tablet 00:00: mouth 2 (two) Medical times Branch daily with meals. Pitavastati Yes [id number] 2mg Take 2 mg Univers n (LIVALO) 5-19 by mouth ity o f 2 mg Tab 00:00: daily. Medical Branch metFORMIN 2020-0 Yes [id number] 500mg Take 1 Univers 500 mg 5-19 tablet by ity of tablet 00:00: mouth 2 (two) Medical times Branch daily with meals. Blood-Gluco Yes [id number] Use BID, Univers se Meter 5-19 DX E11.9 ity of (ACCU-CHEK 00:00: ([employer] [place] GUIDE 00 upon Medical GLUCOSE insurance Branch METER) Misc approval) ACCU-CHEK GUIDE blood sugar 2020-0 Yes [id number] Use BID, Univers diagnostic 5-19 DX E11.9 ity o f (ACCU-CHEK 00:00: ([employer] GUIDE TEST 00 upon Medical STRIPS) insurance Branch strip approval) rifAXIMin 0 Yes [id number] 550mg Take 1 Univers 550 mg 5-19 tablet by ity of tablet 00:00: mouth 2 (two) Medical times Branch daily. hydrOXYzine 2020-0 Yes [id number] 50mg Take 1 U nivers 50 mg 5-19 tablet by ity of tablet 00:00: mouth 3 (three) Medical times Branch daily as needed for Itching. lisinopriL 2020-0 Yes [id number] 20mg Take 1 U nivers 20 mg 5-19 tablet by ity of tablet 00:00: mouth daily. Medical Branch spironolact 0 Yes [id number] 25mg Take 1 Univers one 25 mg 5-19 tablet by ity o f tablet 00:00: mouth 2 (two) Medical times Branch daily. carvediloL 2020-0 Yes [id number] 3.125mg Take 1 Univers 3.125 mg 5-19 tablet by ity of tablet 00:00: mouth 2 (two) Medical times Branch daily with meals. Pitavastati 2020-0 Yes [id number] 2mg Take 2 mg Univers n (LIVALO) 5-19 by mouth ity o f 2 mg Tab 00:00: daily. Medical Branch metFORMIN 2020-0 Yes [id number] 500mg Take 1 Univers 500 mg 5-19 tablet by ity of tablet 00:00: mouth 2 (two) Medical times Branch daily with meals. Blood-Gluco 2020-0 Yes [id number] Use BID, Univers se Meter 5-19 DX E11.9 ity of (ACCU-CHEK 00:00: ([employer] [place] GUIDE 00 upon Medical GLUCOSE insurance Branch METER) Misc approval) ACCU-CHEK GUIDE blood sugar 2020-0 Yes [id number] Use BID, Univers diagnostic 5-19 DX E11.9 ity o f (ACCU-CHEK 00:00: ([employer] GUIDE TEST 00 upon Medical STRIPS) insurance Branch strip approval) rifAXIMin 2020-0 Yes [id number] 550mg Take 1 Univers 550 mg 5-19 tablet by ity of tablet 00:00: mouth (two) Medical times Branch daily. hydrOXYzine 2020-0 Yes [id number] 50mg Take 1 U nivers 50 mg 5-19 tablet by ity of tablet 00:00: mouth 3 (three) Medical times Branch daily as needed for Itching. lisinopriL 2020-0 Yes [id number] 20mg Take 1 U nivers 20 mg 5-19 tablet by ity of tablet 00:00: mouth daily. Medical Branch spironolact 2020-0 Yes [id number] 25mg Take 1 Univers one 25 mg 5-19 tablet by ity o f tablet 00:00: mouth (two) Medical times Branch daily. carvediloL 2020-0 Yes [id number] 3.125mg Take 1 Univers 3.125 mg 5-19 tablet by ity of tablet 00:00: mouth (two) Medical times Branch daily with meals. Pitavastati 2020-0 Yes [id number] 2mg Take 2 mg Univers n (LIVALO) 5-19 by mouth ity o f 2 mg Tab 00:00: daily. 00 Medical Branch metFORMIN Yes [id number] 500mg Take 1 Univers 500 mg 5-19 tablet by ity of tablet 00:00: mouth 2 00 (two) Medical times Branch daily with meals. Blood-Gluco Yes [id number] Use BID, Univers se Meter 5-19 DX E11.9 ity of (ACCU-CHEK 00:00: ([facility] GUIDE 00 upon Medical GLUCOSE insurance Branch METER) Misc approval) ACCU-CHEK GUIDE blood sugar Yes [id number] Use BID, Univers diagnostic 5-19 DX E11.9 ity o f (ACCU-CHEK 00:00: ([facility] GUIDE TEST 00 upon Medical STRIPS) insurance Branch strip approval) furosemide 2020- No [id number] 40mg Take 1 Univers 40 mg 5-19 10-20 tablet by ity of tablet 00:00: 00:00 mouth [place] 00 :00 every Medical morning Branch and evening. pantoprazol 2020- No [id number] 40mg Take 1 Univers e 40 mg EC 5-19 10-19 tablet by ity of tablet 00:00: 00:00 mouth [place] 00 :00 daily. Medical Branch azithromyci Yes [id number] 250mg Take 1 Univers n 3-24 tablet by ity of (ZITHROMAX 00:00: mouth [place] Z-MERCY) 250 00 daily. Medical mg tablet Take 500 Branch mg day 1, then 250 mg days 2 to 5. azithromyci 2020- No [id number] 250mg Take 1 Univers n 3-24 05-19 tablet by ity of (ZITHROMAX 00:00: 00:00 mouth [place] Z-MERCY) 250 00 :00 daily. Medical mg tablet Take 500 Branch mg day 1, then 250 mg days 2 to 5. azithromyci 2020- No [id number] 250mg Take 1 Univers n 3-24 05-19 tablet by ity of (ZITHROMAX 00:00: 00:00 mouth [place] Z-MERCY) 250 00 :00 daily. Medical mg tablet Take 500 Branch mg day 1, then 250 mg days 2 to 5. LISINOPRIL 2021-0 Yes [id number] Take 1 U nivers 20 mg 3-09 tablet by ity of tablet 00:00: mouth once [place] 00 daily Medical Branch LISINOPRIL 2020-0 Yes [id number] Take 1 U nivers 20 mg 3-09 tablet by ity of tablet 00:00: mouth once [place] 00 daily Medical Branch LISINOPRIL 2020-0 Yes [id number] Take 1 U nivers 20 mg 3-09 tablet by ity of tablet 00:00: mouth once [place] 00 daily Medical Branch LISINOPRIL 2020-0 2021- No [id number] Take 1 Univers 20 mg 3-09 05-19 tablet by ity of tablet 00:00: 00:00 mouth [place] 00 :00 daily Medical Branch LISINOPRIL 2020-0 1- No [id number] Take 1 Univers 20 mg 3-09 05-19 tablet by ity of tablet 00:00: 00:00 mouth [place] 00 :00 daily Medical Branch clobetasoL 2020-0 Yes [id number] Apply to Univers 0.05 % 2-09 area(s) 2 ity of cream 00:00: (two) [place] 00 times Medical daily. Branch clobetasoL 2020-0 Yes [id number] Apply to Univers 0.05 % 2-09 area(s) 2 ity of cream 00:00: (two) [place] 00 times Medical daily. Branch clobetasoL 1-0 Yes [id number] Apply to Univers 0.05 % 2-09 area(s) 2 ity of cream 00:00: (two) [place] times Medical daily. Branch clobetasoL 1-0 Yes [id number] Apply to Univers 0.05 % 2-09 area(s) 2 ity of cream 00:00: (two) [place] 00 times Medical daily. Branch clobetasoL 2021-0 Yes [id number] Apply to Univers 0.05 % 2-09 area(s) 2 ity of cream 00:00: (two) [place] 00 times Medical daily. Branch clobetasoL 2021-0 Yes [id number] Apply to Univers 0.05 % 2-09 area(s) 2 ity of cream 00:00: (two) [place] 00 times Medical daily. Branch clobetasoL 2021-0 Yes [id number] Apply to Univers 0.05 % 2-09 area(s) 2 ity of cream 00:00: (two) [place] 00 times Medical daily. Branch clobetasoL 1-0 Yes [id number] Apply to Univers 0.05 % 2-09 area(s) 2 ity of cream 00:00: (two) [place] 00 times Medical daily. Branch clobetasoL 2020-0 Yes [id number] Apply to Univers 0.05 % 2-09 area(s) 2 ity of cream 00:00: (two) [place] 00 times Medical daily. Branch clobetasoL 1-0 Yes [id number] Apply to Univers 0.05 % 2-09 area(s) 2 ity of cream 00:00: (two) [place] 00 times Medical daily. Branch clobetasoL 1-0 Yes [id number] Apply to Univers 0.05 % 2-09 area(s) 2 ity of cream 00:00: (two) [place] 00 times Medical daily. Branch clobetasoL 2020-0 Yes [id number] Apply to Univers 0.05 % 2-09 area(s) 2 ity of cream 00:00: (two) [place] 00 times Medical daily. [place] azithromyci 2020- No 500mg 500 mg, IV Univers n 06-26 [place], ity of (ZITHROMAX) 03:45: 02:58 ONCE, 1 [place] injection 00 :00 dose, Alyssa Medic al 500 mg 06/25/20 at Branch 2145, STAT
Re ason for Anti-Infec tive: Documented Infection< br>Documen lisa Infection Site: Respirator y
Durat ion of Therapy: 7 days cefTRIAXone 2020- No 1000mg 1,000 mg, Univers (ROCEPHIN) 06-26 IV ity of 1,000 mg in 03:45: 03:27 [place], [place] NaCl 0.9% 00 :00 ONCE, 1 Medical (NS) 50 mL dose, Alyssa Bran ch MINI-BAG 06/25/20 at 2145, 50 mL
Reas on for Anti-Infec tive: Documented Infection< br>Documen lisa Infection Site: Respirator y
Durat ion of Therapy: 7 days foLIC acid 2020-0 Yes [id number] 1mg Take 1 Univers 1 mg tablet 1-28 tablet by ity of 00:00: mouth [place] 00 daily. Medical Branch foLIC acid 2020-0 Yes [id number] 1mg Take 1 Univers 1 mg tablet 1-28 tablet by ity of 00:00: mouth [place] 00 daily. Medical Branch foLIC acid 2020-0 Yes [id number] 1mg Take 1 Univers 1 mg tablet 1-28 tablet by ity of 00:00: mouth [place] 00 daily. Medical Branch foLIC acid 2020-0 Yes [id number] 1mg Take 1 Univers 1 mg tablet 1-28 tablet by ity of 00:00: mouth [place] 00 daily. Medical Branch foLIC acid 2020-0 Yes [id number] 1mg Take 1 Univers 1 mg tablet 1-28 tablet by ity of 00:00: mouth [place] 00 daily. Medical Branch foLIC acid 2020-0 Yes [id number] 1mg Take 1 Univers 1 mg tablet 1-28 tablet by ity of 00:00: mouth [place] 00 daily. Medical Branch foLIC acid 2020-0 Yes [id number] 1mg Take 1 Univers 1 mg tablet 1-28 tablet by ity of 00:00: mouth [place] 00 daily. Medical Branch foLIC acid 2020-0 Yes [id number] 1mg Take 1 Univers 1 mg tablet 1-28 tablet by ity of 00:00: mouth [place] 00 daily. Medical Branch foLIC acid 2020-0 Yes [id number] 1mg Take 1 Univers 1 mg tablet 1-28 tablet by ity of 00:00: mouth [place] 00 daily. Medical Branch foLIC acid 2020-0 Yes [id number] 1mg Take 1 [facility] 1 mg tablet 1-28 tablet by ity of 00:00: mouth [place] 00 daily. Medical Branch foLIC acid 2020-0 Yes [id number] 1mg Take 1 [facility] 1 mg tablet 1-28 tablet by ity of 00:00: mouth [place] 00 daily. Medical Branch foLIC acid 2020-0 Yes [id number] 1mg Take 1 [facility] 1 mg tablet 1-28 tablet by ity of 00:00: mouth [place] 00 daily. Medical Branch foLIC acid 2020-0 Yes [id number] 1mg Take 1 [facility] 1 mg tablet 1-28 tablet by ity of 00:00: mouth [place] 00 daily. Medical Branch amoxicillin 2020-0 2020- No [id number] 500mg Take 1 [facility] -pot 1-28 02-05 tablet by ity of clavulanate 00:00: 05:59 mouth [place] 500 mg 00 :00 every 8 Medical 500-125 mg (eight) Branch tablet hours for 7 days. furosemide 2018-05 Yes [id number] 40mg Take 1 [facility] 40 mg 2-20 tablet by ity of tablet 00:00: mouth 00 every Medical morning Branch and evening. metFORMIN 2018-05 Yes [id number] 500mg Take 1 [facility] 500 mg 2-20 tablet by ity of tablet 00:00: mouth 2 (two) Medical times Branch daily with meals. carvedilol 2018-05 Yes [id number] 3.125mg Take 1 [facility] 3.125 mg 2-20 tablet by ity of tablet 00:00: mouth 2 (two) Medical times Branch daily with meals. lisinopril 2018-05 Yes [id number] 20mg Take 1 [facility] n[facility] 20 mg 2-20 tablet by ity of tablet 00:00: mouth daily. Medical Branch spironolact 2018-05 Yes [id number] 25mg Take 1 [facility] one 25 mg 2-20 tablet by ity o f tablet 00:00: mouth 2 (two) Medical times Branch daily. rifAXIMin 2018-05 Yes [id number] 550mg Take 1 [facility] 550 mg 2-20 tablet by ity of tablet 00:00: mouth 2 (two) Medical times Branch daily. albuterol 2018-05 Yes [id number] 2{puff} Inhale 2 [facility] 90 2-20 Puffs ity of mcg/actuati 00:00: every 6 [place] on inhaler 00 (six) Medical hours as Branch needed for Wheezing or Shortness of Breath. Pitavastati 2018-05 Yes [id number] 2mg Take 2 mg [facility] n (LIVALO) 2-20 by mouth ity o f 2 mg Tab 00:00: daily. Medical Branch Lancets 2018-05 Yes [id number] Use BID, U nivers Misc 2-20 DX E11.9 ity of 00:00: (Brand [place] upon Medical insurance Branch approval) blood sugar 2018-05 Yes [id number] Use BID, [facility] diagnostic 2-20 DX E11.9 ity o f (ACCU-CHEK 00:00: (Brand [place] GUIDE) 00 upon Medical strip insurance Branch approval) lactulose 2018-05 Yes [id number] 15mL Take 15 mL [facility] 10 gram/15 2-20 by mouth 3 ity of mL solution 00:00: (three) [place] 00 times Medical daily. Branch hydrOXYzine 2018-05 Yes [id number] 50mg Take 1 U nivers 50 mg 2-20 tablet by ity of tablet 00:00: mouth 3 [place] 00 (three) Medical times Branch daily as needed for Itching. calcipotrie 2018-05 Yes [id number] Apply to [facility] ne 0.005 % 2-20 area(s) 2 ity of cream 00:00: (two) [place] 00 times Medical daily. Branch clobetasol 2018-05 Yes [id number] Apply to [facility] 0.05 % 2-20 area(s) 2 ity of cream 00:00: (two) [place] 00 times Medical daily. Branch foLIC acid 2018-05 Yes [id number] 1mg Take 1 [facility] 1 mg tablet 2-20 tablet by ity of 00:00: mouth [place] 00 daily. Medical Branch pantoprazol 2018-05 Yes [id number] 40mg Take 1 [facility] e 40 mg EC 2-20 tablet by ity of tablet 00:00: mouth [place] 00 daily. Medical Branch triamcinolo 2018-05 Yes [id number] Apply to [facility] ne 2-20 affected ity of acetonide 00:00: area(s) 2 [place] 0.1 % cream 00 (two) Medical times Branch daily. furosemide 2018-05 Yes [id number] 40mg Take 1 [facility] nivers 40 mg 2-20 tablet by ity of tablet 00:00: mouth [place] 00 every Medical morning Branch and evening. metFORMIN 2018-05 Yes [id number] 500mg Take 1 [facility] 500 mg 2-20 tablet by ity of tablet 00:00: mouth 2 [place] 00 (two) Medical times Branch daily with meals. carvedilol 2018-05 Yes [id number] 3.125mg Take 1 [facility] 3.125 mg 2-20 tablet by ity of tablet 00:00: mouth 2 [place] 00 (two) Medical times Branch daily with meals. lisinopril 2018-05 Yes [id number] 20mg Take 1 [facility] n[facility] 20 mg 2-20 tablet by ity of tablet 00:00: mouth [place] 00 daily. Medical Branch spironolact 2018-05 Yes [id number] 25mg Take 1 [facility] one 25 mg 2-20 tablet by ity o f tablet 00:00: mouth 2 (two) Medical times Branch daily. rifAXIMin 2018-05 Yes [id number] 550mg Take 1 [facility] 550 mg 2-20 tablet by ity of tablet 00:00: mouth 2 [place] (two) Medical times Branch daily. albuterol 2018-05 Yes [id number] 2{puff} Inhale 2 [facility] 90 2-20 Puffs ity of mcg/actuati 00:00: every 6 [place] on inhaler 00 (six) Medical hours as Branch needed for Wheezing or Shortness of Breath. Pitavastati 2018-05 Yes [id number] 2mg Take 2 mg [facility] n (LIVALO) 2-20 by mouth ity o f 2 mg Tab 00:00: daily. [place] Medical [facility] Lancets 2018-05 Yes [id number] Use BID, U nivers Misc 2-20 DX E11.9 ity of 00:00: ([facility] 00 upon Medical insurance Branch approval) blood sugar 2018-05 Yes [id number] Use BID, [facility] diagnostic 2-20 DX E11.9 ity o f (ACCU-CHEK 00:00: ([facility] GUIDE) [address] [place] [address] strip insurance Branch approval) lactulose 2018-05 Yes [id number] 15mL Take 15 mL [facility] 10 gram/15 2-20 by mouth 3 ity of mL solution 00:00: (three) [place] 00 times Medical daily. Branch hydrOXYzine 2018-05 Yes [id number] 50mg Take 1 U nivers 50 mg 2-20 tablet by ity of tablet 00:00: mouth 3 00 (three) Medical times Branch daily as needed for Itching. calcipotrie 2018-05 Yes [id number] Apply to [facility] ne 0.005 % 2-20 area(s) 2 ity of cream 00:00: (two) [place] 00 times Medical daily. Branch clobetasol 2018-05 Yes [id number] Apply to [facility] 0.05 % 2-20 area(s) 2 ity of cream 00:00: (two) [place] 00 times Medical daily. Branch foLIC acid 2018-05 Yes [id number] 1mg Take 1 [facility] 1 mg tablet 2-20 tablet by ity of 00:00: mouth daily. Medical Branch pantoprazol 2018-05 Yes [id number] 40mg Take 1 [facility] e 40 mg EC 2-20 tablet by ity of tablet 00:00: mouth daily. Medical Branch triamcinolo 2018-05 Yes [id number] Apply to [facility] ne 2-20 affected ity of acetonide 00:00: area(s) 2 [place] 0.1 % cream 00 (two) Medical times Branch daily. furosemide 2018-05 Yes [id number] 40mg Take 1 U nivers 40 mg 2-20 tablet by ity of tablet 00:00: mouth 00 every Medical morning Branch and evening. metFORMIN 2018-05 Yes [id number] 500mg Take 1 [facility] 500 mg 2-20 tablet by ity of tablet 00:00: mouth (two) Medical times Branch daily with meals. carvedilol 2018-05 Yes [id number] 3.125mg Take 1 [facility] 3.125 mg 2-20 tablet by ity of tablet 00:00: mouth (two) Medical times Branch daily with meals. lisinopril 2018-05 Yes [id number] 20mg Take 1 U nivers 20 mg 2-20 tablet by ity of tablet 00:00: mouth daily. Medical Branch spironolact 2018-05 Yes [id number] 25mg Take 1 [facility] one 25 mg 2-20 tablet by ity o f tablet 00:00: mouth (two) Medical times Branch daily. rifAXIMin 2018-05 Yes [id number] 550mg Take 1 [facility] 550 mg 2-20 tablet by ity of tablet 00:00: mouth (two) Medical times Branch daily. albuterol 2018-05 Yes [id number] 2{puff} Inhale 2 [facility] 90 2-20 Puffs ity of mcg/actuati 00:00: every 6 [place] on inhaler 00 (six) Medical hours as Branch needed for Wheezing or Shortness of Breath. Pitavastati 2018-05 Yes [id number] 2mg Take 2 mg [facility] n (LIVALO) 2-20 by mouth ity o f 2 mg Tab 00:00: daily. Medical Branch Lancets 2018-05 Yes [id number] Use BID, U nivers Misc 2-20 DX E11.9 ity of 00:00: (Brand [place] 00 upon Medical insurance Branch approval) blood sugar 2018-05 Yes [id number] Use BID, [facility] diagnostic 2-20 DX E11.9 ity o f (ACCU-CHEK 00:00: ([facility] GUIDE) 00 upon Medical strip insurance Branch approval) lactulose 2018-05 Yes [id number] 15mL Take 15 mL [facility] 10 gram/15 2-20 by mouth 3 ity of mL solution 00:00: (three) [place] 00 times Medical daily. Branch hydrOXYzine 2018-05 Yes [id number] 50mg Take 1 U nivers 50 mg 2-20 tablet by ity of tablet 00:00: mouth 3 [place] 00 (three) Medical times Branch daily as needed for Itching. calcipotrie 2018-05 Yes [id number] Apply to [facility] ne 0.005 % 2-20 area(s) 2 ity of cream 00:00: (two) [place] 00 times Medical daily. Branch clobetasol 2018-05 Yes [id number] Apply to [facility] 0.05 % 2-20 area(s) 2 ity of cream 00:00: (two) [place] 00 times Medical daily. Branch pantoprazol 2018-05 Yes [id number] 40mg Take 1 [facility] e 40 mg EC 2-20 tablet by ity of tablet 00:00: mouth daily. Medical Branch triamcinolo 2018-05 Yes [id number] Apply to [facility] ne 2-20 affected ity of acetonide 00:00: area(s) 2 [place] 0.1 % cream 00 (two) Medical times Branch daily. furosemide 2018-05 Yes [id number] 40mg Take 1 U nivers 40 mg 2-20 tablet by ity of tablet 00:00: mouth [place] 00 every Medical morning Branch and evening. metFORMIN 2018-05 Yes [id number] 500mg Take 1 [facility] 500 mg 2-20 tablet by ity of tablet 00:00: mouth 2 (two) Medical times Branch daily with meals. carvedilol 2018-05 Yes [id number] 3.125mg Take 1 [facility] 3.125 mg 2-20 tablet by ity of tablet 00:00: mouth 2 (two) Medical times Branch daily with meals. lisinopril 2018-05 Yes [id number] 20mg Take 1 U nivers 20 mg 2-20 tablet by ity of tablet 00:00: mouth [place] 00 daily. Medical Branch spironolact 2018-05 Yes [id number] 25mg Take 1 [facility] one 25 mg 2-20 tablet by ity o f tablet 00:00: mouth 2 (two) Medical times Branch daily. rifAXIMin 2018-05 Yes [id number] 550mg Take 1 [facility] 550 mg 2-20 tablet by ity of tablet 00:00: mouth 2 [place] (two) Medical times Branch daily. albuterol 2018-05 Yes [id number] 2{puff} Inhale 2 [facility] 90 2-20 Puffs ity of mcg/actuati 00:00: every 6 [place] on inhaler 00 (six) Medical hours as Branch needed for Wheezing or Shortness of Breath. Pitavastati 2018-05 Yes [id number] 2mg Take 2 mg [facility] n (LIVALO) 2-20 by mouth ity o f 2 mg Tab 00:00: daily. Medical Branch Lancets 2018-05 Yes [id number] Use BID, U nivers Misc 2-20 DX E11.9 ity of 00:00: ([facility] 00 upon Medical insurance Branch approval) blood sugar 2018-05 Yes [id number] Use BID, [facility] diagnostic 2-20 DX E11.9 ity o f (ACCU-CHEK 00:00: ([facility] GUIDE) [address] [place] [address] strip insurance Branch approval) lactulose 2018-05 Yes [id number] 15mL Take 15 mL [facility] 10 gram/15 2-20 by mouth 3 ity of mL solution 00:00: (three) [place] 00 times Medical daily. Branch hydrOXYzine 2018-05 Yes [id number] 50mg Take 1 U nivers 50 mg 2-20 tablet by ity of tablet 00:00: mouth 3 [place] 00 (three) Medical times Branch daily as needed for Itching. calcipotrie 2018-05 Yes [id number] Apply to [facility] ne 0.005 % 2-20 area(s) 2 ity of cream 00:00: (two) [place] 00 times Medical daily. Branch clobetasol 2018-05 Yes [id number] Apply to [facility] 0.05 % 2-20 area(s) 2 ity of cream 00:00: (two) [place] 00 times Medical daily. Branch pantoprazol 2018-05 Yes [id number] 40mg Take 1 [facility] e 40 mg EC 2-20 tablet by ity of tablet 00:00: mouth [place] 00 daily. Medical Branch triamcinolo 2018-05 Yes [id number] Apply to [facility] ne 2-20 affected ity of acetonide 00:00: area(s) 2 [place] 0.1 % cream 00 (two) Medical times Branch daily. albuterol 2018-05 Yes [id number] 2{puff} Inhale 2 [facility] 90 2-20 Puffs ity of mcg/actuati 00:00: every 6 [place] on inhaler 00 (six) Medical hours as Branch needed for Wheezing or Shortness of Breath. Lancets 2018-05 Yes [id number] Use BID, U nivers Misc 2-20 DX E11.9 ity of 00:00: (Brand [place] [address] upon Medical insurance Branch approval) lactulose 2018-05 Yes [id number] 15mL Take 15 mL [facility] 10 gram/15 2-20 by mouth 3 ity of mL solution 00:00: (three) [place] 00 times Medical daily. Branch calcipotrie 2018-05 Yes [id number] Apply to [facility] ne 0.005 % 2-20 area(s) 2 ity of cream 00:00: (two) [place] 00 times Medical daily. Branch triamcinolo 2018-05 Yes [id number] Apply to [facility] ne 2-20 affected ity of acetonide 00:00: area(s) 2 [place] 0.1 % cream 00 (two) Medical times Branch daily. furosemide 2018-05 Yes [id number] 40mg Take 1 U nivers 40 mg 2-20 tablet by ity of tablet 00:00: mouth [place] 00 every Medical morning Branch and evening. metFORMIN 2018-05 Yes [id number] 500mg Take 1 [facility] 500 mg 2-20 tablet by ity of tablet 00:00: mouth 2 [place] 00 (two) Medical times Branch daily with meals. carvedilol 2018-05 Yes [id number] 3.125mg Take 1 [facility] 3.125 mg 2-20 tablet by ity of tablet 00:00: mouth 2 [place] 00 (two) Medical times Branch daily with meals. spironolact 2018-05 Yes [id number] 25mg Take 1 [facility] one 25 mg 2-20 tablet by ity o f tablet 00:00: mouth 2 [place] 00 (two) Medical times Branch daily. rifAXIMin 2018-05 Yes [id number] 550mg Take 1 [facility] 550 mg 2-20 tablet by ity of tablet 00:00: mouth 2 00 (two) Medical times Branch daily. albuterol 2018-05 Yes [id number] 2{puff} Inhale 2 [facility] 90 2-20 Puffs ity of mcg/actuati 00:00: every 6 [place] on inhaler 00 (six) Medical hours as Branch needed for Wheezing or Shortness of Breath. Pitavastati 2018-05 Yes [id number] 2mg Take 2 mg [facility] n (LIVALO) 2-20 by mouth ity o f 2 mg Tab 00:00: daily. [place] 00 Medical Branch Lancets 2018-05 Yes [id number] Use BID, U nivers Misc 2-20 DX E11.9 ity of 00:00: ([facility] 00 upon Medical insurance Branch approval) blood sugar 2018-05 Yes [id number] Use BID, [facility] diagnostic 2-20 DX E11.9 ity o f (ACCU-CHEK 00:00: ([facility] GUIDE) [address] [place] [address] Medical strip insurance Branch approval) lactulose 2018-05 Yes [id number] 15mL Take 15 mL [facility] 10 gram/15 2-20 by mouth 3 ity of mL solution 00:00: (three) [place] 00 times Medical daily. Branch hydrOXYzine 2018-05 Yes [id number] 50mg Take 1 U nivers 50 mg 2-20 tablet by ity of tablet 00:00: mouth 3 00 (three) Medical times Branch daily as needed for Itching. calcipotrie 2018-05 Yes [id number] Apply to [facility] ne 0.005 % 2-20 area(s) 2 ity of cream 00:00: (two) [place] 00 times Medical daily. Branch pantoprazol 2018-05 Yes [id number] 40mg Take 1 [facility] e 40 mg EC 2-20 tablet by ity of tablet 00:00: mouth [place] 00 daily. Medical Branch triamcinolo 2018-05 Yes [id number] Apply to [facility] ne 2-20 affected ity of acetonide 00:00: area(s) 2 [place] 0.1 % cream 00 (two) Medical times Branch daily. furosemide 2018-05 Yes [id number] 40mg Take 1 U nivers 40 mg 2-20 tablet by ity of tablet 00:00: mouth [place] 00 every Medical morning Branch and evening. metFORMIN 2018-05 Yes [id number] 500mg Take 1 [facility] 500 mg 2-20 tablet by ity of tablet 00:00: mouth 2 (two) Medical times Branch daily with meals. carvedilol 2018-05 Yes [id number] 3.125mg Take 1 [facility] 3.125 mg 2-20 tablet by ity of tablet 00:00: mouth 2 (two) Medical times Branch daily with meals. spironolact 2018-05 Yes [id number] 25mg Take 1 [facility] one 25 mg 2-20 tablet by ity o f tablet 00:00: mouth 2 (two) Medical times Branch daily. rifAXIMin 2018-05 Yes [id number] 550mg Take 1 [facility] 550 mg 2-20 tablet by ity of tablet 00:00: mouth 2 [place] (two) Medical times Branch daily. albuterol 2018-05 Yes [id number] 2{puff} Inhale 2 [facility] 90 2-20 Puffs ity of mcg/actuati 00:00: every 6 [place] on inhaler 00 (six) Medical hours as Branch needed for Wheezing or Shortness of Breath. Pitavastati 2018-05 Yes [id number] 2mg Take 2 mg [facility] n (LIVALO) 2-20 by mouth ity o f 2 mg Tab 00:00: daily. [place] Medical Branch Lancets 2018-05 Yes [id number] Use BID, U nivers Misc 2-20 DX E11.9 ity of 00:00: ([facility] 00 upon Medical insurance Branch approval) blood sugar 2018-05 Yes [id number] Use BID, [facility] diagnostic 2-20 DX E11.9 ity o f (ACCU-CHEK 00:00: ([facility] GUIDE) [address] [place] [address] Medical strip insurance Branch approval) lactulose 2018-05 Yes [id number] 15mL Take 15 mL [facility] 10 gram/15 2-20 by mouth 3 ity of mL solution 00:00: (three) [place] 00 times Medical daily. Branch hydrOXYzine 2018-05 Yes [id number] 50mg Take 1 U nivers 50 mg 2-20 tablet by ity of tablet 00:00: mouth 3 00 (three) Medical times Branch daily as needed for Itching. calcipotrie 2018-05 Yes [id number] Apply to Univers ne 0.005 % 2-20 area(s) 2 ity of cream 00:00: (two) times Medical daily. Branch pantoprazol 2018-05 Yes [id number] 40mg Take 1 [facility] e 40 mg EC 2-20 tablet by ity of tablet 00:00: mouth daily. Medical Branch triamcinolo 2018-05 Yes [id number] Apply to [facility] ne 2-20 affected ity of acetonide 00:00: area(s) 2 [place] 0.1 % cream 00 (two) Medical times Branch daily. furosemide 2018-05 Yes [id number] 40mg Take 1 U nivers 40 mg 2-20 tablet by ity of tablet 00:00: mouth 00 every Medical morning Branch and evening. metFORMIN 2018-05 Yes [id number] 500mg Take 1 [facility] 500 mg 2-20 tablet by ity of tablet 00:00: mouth 2 (two) Medical times Branch daily with meals. carvedilol 2018-05 Yes [id number] 3.125mg Take 1 [facility] 3.125 mg 2-20 tablet by ity of tablet 00:00: mouth (two) Medical times Branch daily with meals. spironolact 2018-05 Yes [id number] 25mg Take 1 [facility] one 25 mg 2-20 tablet by ity o f tablet 00:00: mouth 2 [place] (two) Medical times Branch daily. rifAXIMin 2018-05 Yes [id number] 550mg Take 1 [facility] 550 mg 2-20 tablet by ity of tablet 00:00: mouth 2 [place] (two) Medical times Branch daily. albuterol 2018-05 Yes [id number] 2{puff} Inhale 2 [facility] 90 2-20 Puffs ity of mcg/actuati 00:00: every 6 [place] on inhaler 00 (six) Medical hours as Branch needed for Wheezing or Shortness of Breath. Pitavastati 2018-05 Yes [id number] 2mg Take 2 mg [facility] n (LIVALO) 2-20 by mouth ity o f 2 mg Tab 00:00: daily. [place] Medical Branch Lancets 2018-05 Yes [id number] Use BID, U nivers Misc 2-20 DX E11.9 ity of 00:00: (Brand [place] upon Medical insurance Branch approval) blood sugar 2018-05 Yes [id number] Use BID, [facility] diagnostic 2-20 DX E11.9 ity o f (ACCU-CHEK 00:00: ([facility] GUIDE) 00 upon Medical strip insurance Branch approval) lactulose 2018-05 Yes [id number] 15mL Take 15 mL [facility] 10 gram/15 2-20 by mouth 3 ity of mL solution 00:00: (three) [place] 00 times Medical daily. Branch hydrOXYzine 2018-05 Yes [id number] 50mg Take 1 U nivers 50 mg 2-20 tablet by ity of tablet 00:00: mouth 3 [place] 00 (three) Medical times Branch daily as needed for Itching. calcipotrie 2018-05 Yes [id number] Apply to [facility] ne 0.005 % 2-20 area(s) 2 ity of cream 00:00: (two) [place] 00 times Medical daily. Branch pantoprazol 2018-05 Yes [id number] 40mg Take 1 [facility] e 40 mg EC 2-20 tablet by ity of tablet 00:00: mouth [place] 00 daily. Medical Branch triamcinolo 2018-05 Yes [id number] Apply to [facility] ne 2-20 affected ity of acetonide 00:00: area(s) 2 [place] 0.1 % cream 00 (two) Medical times Branch daily. albuterol 2018-05 Yes [id number] 2{puff} Inhale 2 [facility] 90 2-20 Puffs ity of mcg/actuati 00:00: every 6 [place] on inhaler 00 (six) Medical hours as Branch needed for Wheezing or Shortness of Breath. Lancets 2018-05 Yes [id number] Use BID, U nivers Misc 2-20 DX E11.9 ity of 00:00: ([facility] Medical insurance Branch approval) lactulose 2018-05 Yes [id number] 15mL Take 15 mL [facility] 10 gram/15 2-20 by mouth 3 ity of mL solution 00:00: (three) [place] 00 times Medical daily. Branch calcipotrie 2018-05 Yes [id number] Apply to [facility] ne 0.005 % 2-20 area(s) 2 ity of cream 00:00: (two) [place] 00 times Medical daily. Branch triamcinolo 2018-05 Yes [id number] Apply to [facility] ne 2-20 affected ity of acetonide 00:00: area(s) 2 [place] 0.1 % cream 00 (two) Medical times Branch daily. albuterol 2018-05 Yes [id number] 2{puff} Inhale 2 [facility] 90 2-20 Puffs ity of mcg/actuati 00:00: every 6 [place] on inhaler 00 (six) Medical hours as Branch needed for Wheezing or Shortness of Breath. Lancets 2018-05 Yes [id number] Use BID, U nivers Misc 2-20 DX E11.9 ity of 00:00: (Brand [address] Medical insurance Branch approval) lactulose 2018-05 Yes [id number] 15mL Take 15 mL [facility] 10 gram/15 2-20 by mouth 3 ity of mL solution 00:00: (three) [place] 00 times Medical daily. Branch calcipotrie 2018-05 Yes [id number] Apply to [facility] ne 0.005 % 2-20 area(s) 2 ity of cream 00:00: (two) [place] 00 times Medical daily. Branch triamcinolo 2018-05 Yes [id number] Apply to [facility] ne 2-20 affected ity of acetonide 00:00: area(s) 2 [place] 0.1 % cream 00 (two) Medical times Branch daily. albuterol 2018-05 Yes [id number] 2{puff} Inhale 2 [facility] 90 2-20 Puffs ity of mcg/actuati 00:00: every 6 [place] on inhaler 00 (six) Medical hours as Branch needed for Wheezing or Shortness of Breath. Lancets 2018-05 Yes [id number] Use BID, U nivers Misc 2-20 DX E11.9 ity of 00:00: (Brand [address] Medical insurance Branch approval) lactulose 2018-05 Yes [id number] 15mL Take 15 mL [facility] 10 gram/15 2-20 by mouth 3 ity of mL solution 00:00: (three) [place] 00 times Medical daily. Branch calcipotrie 2018-05 Yes [id number] Apply to [facility] ne 0.005 % 2-20 area(s) 2 ity of cream 00:00: (two) [place] 00 times Medical daily. Branch triamcinolo 2018-05 Yes [id number] Apply to [facility] ne 2-20 affected ity of acetonide 00:00: area(s) 2 [place] 0.1 % cream 00 (two) Medical times Branch daily. albuterol 2018-05 Yes [id number] 2{puff} Inhale 2 [facility] 90 2-20 Puffs ity of mcg/actuati 00:00: every 6 [place] on inhaler 00 (six) Medical hours as Branch needed for Wheezing or Shortness of Breath. Lancets 2018-05 Yes [id number] Use BID, U nivers Misc 2-20 DX E11.9 ity of 00:00: (Brand [address] Medical insurance Branch approval) lactulose 2018-05 Yes [id number] 15mL Take 15 mL [facility] 10 gram/15 2-20 by mouth 3 ity of mL solution 00:00: (three) [place] 00 times Medical daily. Branch calcipotrie 2018-05 Yes [id number] Apply to [facility] ne 0.005 % 2-20 area(s) 2 ity of cream 00:00: (two) [place] 00 times Medical daily. Branch triamcinolo 2018-05 Yes [id number] Apply to [facility] ne 2-20 affected ity of acetonide 00:00: area(s) 2 [place] 0.1 % cream 00 (two) Medical times Branch daily. albuterol 2018-05 Yes [id number] 2{puff} Inhale 2 [facility] 90 2-20 Puffs ity of mcg/actuati 00:00: every 6 [place] on inhaler 00 (six) Medical hours as Branch needed for Wheezing or Shortness of Breath. Lancets 2018-05 Yes [id number] Use BID, U nivers Misc 2-20 DX E11.9 ity of 00:00: (Brand [address] insurance Branch approval) lactulose 2018-05 Yes [id number] 15mL Take 15 mL [facility] 10 gram/15 2-20 by mouth 3 ity of mL solution 00:00: (three) [place] 00 times Medical daily. Branch calcipotrie 2018-05 Yes [id number] Apply to [facility] ne 0.005 % 2-20 area(s) 2 ity of cream 00:00: (two) [place] 00 times Medical daily. Branch triamcinolo 2018-05 Yes [id number] Apply to [facility] ne 2-20 affected ity of acetonide 00:00: area(s) 2 [place] 0.1 % cream 00 (two) Medical times Branch daily. albuterol 2018-05 Yes [id number] 2{puff} Inhale 2 [facility] 90 2-20 Puffs ity of mcg/actuati 00:00: every 6 [place] on inhaler 00 (six) Medical hours as Branch needed for Wheezing or Shortness of Breath. Lancets 2018-05 Yes [id number] Use BID, U nivers Misc 2-20 DX E11.9 ity of 00:00: (Brand [address] Medical insurance Branch approval) lactulose 2018-05 Yes [id number] 15mL Take 15 mL [facility] 10 gram/15 2-20 by mouth 3 ity of mL solution 00:00: (three) [place] 00 times Medical daily. Branch calcipotrie 2018-05 Yes [id number] Apply to [facility] ne 0.005 % 2-20 area(s) 2 ity of cream 00:00: (two) [place] 00 times Medical daily. Branch triamcinolo 2018-05 Yes [id number] Apply to [facility] ne 2-20 affected ity of acetonide 00:00: area(s) 2 [place] 0.1 % cream 00 (two) Medical times Branch daily. albuterol 2018-05 Yes [id number] 2{puff} Inhale 2 [facility] 90 2-20 Puffs ity of mcg/actuati 00:00: every 6 [place] on inhaler 00 (six) Medical hours as Branch needed for Wheezing or Shortness of Breath. Lancets 2018- Yes [id number] Use BID, U nivers Misc 2-20 DX E11.9 ity of 00:00: (Brand [address] Medical insurance Branch approval) lactulose 2018-05 Yes [id number] 15mL Take 15 mL [facility] 10 gram/15 2-20 by mouth 3 ity of mL solution 00:00: (three) [place] 00 times Medical daily. Branch calcipotrie 2018-05 Yes [id number] Apply to [facility] ne 0.005 % 2-20 area(s) 2 ity of cream 00:00: (two) [place] 00 times Medical daily. Branch triamcinolo 2018-05 Yes [id number] Apply to [facility] ne 2-20 affected ity of acetonide 00:00: area(s) 2 [place] 0.1 % cream 00 (two) Medical times Branch daily. albuterol 2018-05 Yes [id number] 2{puff} Inhale 2 [facility] 90 2-20 Puffs ity of mcg/actuati 00:00: every 6 [place] on inhaler 00 (six) Medical hours as Branch needed for Wheezing or Shortness of Breath. Lancets 2018-05 Yes [id number] Use BID, U nivers Misc 2-20 DX E11.9 ity of 00:00: (Brand [place] 00 upon Medical insurance Branch approval) lactulose 2018-05 Yes [id number] 15mL Take 15 mL [facility] 10 gram/15 2-20 by mouth 3 ity of mL solution 00:00: (three) [place] 00 times Medical daily. Branch calcipotrie 2018-05 Yes [id number] Apply to [facility] ne 0.005 % 2-20 area(s) 2 ity of cream 00:00: (two) [place] 00 times Medical daily. Branch triamcinolo 2018-05 Yes [id number] Apply to [facility] ne 2-20 affected ity of acetonide 00:00: area(s) 2 [place] 0.1 % cream 00 (two) Medical times Branch daily. furosemide 2018-05- No [id number] 40mg Take 1 [facility] 40 mg 2-20 05-19 tablet by ity of tablet 00:00: 00:00 mouth [place] 00 :00 every Medical morning Branch and evening. metFORMIN 2018-05- No [id number] 500mg Take 1 [facility] 500 mg 2-20 05-19 tablet by ity of tablet 00:00: 00:00 mouth 2 [place] 00 :00 (two) Medical times Branch daily with meals. carvedilol 2018-05- No [id number] 3.125mg Take 1 [facility] 3.125 mg 2-20 05-19 tablet by ity o f tablet 00:00: 00:00 mouth 2 [place] 00 :00 (two) Medical times Branch daily with meals. spironolact 2018-05- No [id number] 25mg Take 1 [facility] one 25 mg 2-20 05-19 tablet by ity of tablet 00:00: 00:00 mouth 2 [place] 00 :00 (two) Medical times Branch daily. rifAXIMin 2018-05- No [id number] 550mg Take 1 [facility] 550 mg 2-20 05-19 tablet by ity of tablet 00:00: 00:00 mouth 2 [place] 00 :00 (two) Medical times Branch daily. Pitavastati 2018-05- No [id number] 2mg Take 2 mg [facility] n (LIVALO) 2-20 05-19 by mouth ity of 2 mg Tab 00:00: 00:00 daily. [place] 00 :00 Medical Branch blood sugar 2018-05- No [id number] Use BID, [facility] diagnostic 2-20 05-19 DX E11.9 ity of (ACCU-CHEK 00:00: 00:00 (Brand [place] 00 :00 upon Medical strip insurance Branch approval) hydrOXYzine 2018-05- No [id number] 50mg Take 1 [facility] 50 mg 2-20 05-19 tablet by ity of tablet 00:00: 00:00 mouth 3 [place] 00 :00 (three) Medical times Branch daily as needed for Itching. pantoprazol 2018-05- No [id number] 40mg Take 1 [facility] e 40 mg EC 2-20 05-19 tablet by ity of tablet 00:00: 00:00 mouth [place] 00 :00 daily. Medical Branch furosemide 2018-05- No [id number] 40mg Take 1 [facility] 40 mg 2-20 05-19 tablet by ity of tablet 00:00: 00:00 mouth [place] 00 :00 every Medical morning Branch and evening. metFORMIN 2018-05- No [id number] 500mg Take 1 [facility] 500 mg 2-20 05-19 tablet by ity of tablet 00:00: 00:00 mouth 2 [place] 00 :00 (two) Medical times Branch daily with meals. carvedilol 2018-05- No [id number] 3.125mg Take 1 [facility] 3.125 mg 2-20 05-19 tablet by ity o f tablet 00:00: 00:00 mouth 2 [place] 00 :00 (two) Medical times Branch daily with meals. spironolact 2018-05- No [id number] 25mg Take 1 [facility] one 25 mg 2-20 05-19 tablet by ity of tablet 00:00: 00:00 mouth 2 [place] 00 :00 (two) Medical times Branch daily. rifAXIMin 2018-05- No [id number] 550mg Take 1 [facility] 550 mg 2-20 05-19 tablet by ity of tablet 00:00: 00:00 mouth 2 [place] 00 :00 (two) Medical times Branch daily. Pitavastati 2018-05- No [id number] 2mg Take 2 mg [facility] n (LIVALO) 07-18 by mouth ity of 2 mg Tab 00:00: 00:00 daily. [place] 00 :00 Medical Branch blood sugar 2018-05- No [id number] Use BID, [facility] diagnostic 07-18 DX E11.9 ity of (ACCU-CHEK 00:00: 00:00 ([place] 00 :00 upon Medical strip insurance Branch approval) hydrOXYzine 2018-05- No [id number] 50mg Take 1 [facility] 50 mg 07-18 tablet by ity of tablet 00:00: 00:00 mouth 3 [place] 00 :00 (three) Medical times Branch daily as needed for Itching. pantoprazol 2018-05- No [id number] 40mg Take 1 [facility] e 40 mg EC 07-18 tablet by ity of tablet 00:00: 00:00 mouth [place] 00 :00 daily. Medical Branch lisinopril 2018-05- No [id number] 20mg Take 1 [facility] 20 mg 07-18 tablet by ity of tablet 00:00: 00:00 mouth [place] 00 :00 daily. Medical Branch foLIC acid 2018-05- No [id number] 1mg Take 1 [facility] 1 mg tablet 07-18 tablet by it y of 00:00: 00:00 mouth [place] 00 :00 daily. Medical Branch foLIC acid 2018-05- No [id number] 1mg Take 1 [facility] 1 mg tablet 07-18 tablet by it y of 00:00: 00:00 mouth [place] 00 :00 daily. Medical Branch doxycycline 2019- Yes [id number] 100mg Take 1 [facility] 100 mg 8-29 tablet by ity of tablet 00:00: mouth 2 00 (two) Medical times Branch daily. doxycycline 2019-0 Yes [id number] 100mg Take 1 [facility] 100 mg 8-29 tablet by ity of tablet 00:00: mouth 2 00 (two) Medical times Branch daily. doxycycline 2019- Yes [id number] 100mg Take 1 [facility] 100 mg 8-29 tablet by ity of tablet 00:00: mouth 2 [place] 00 (two) Medical times Branch daily. doxycycline 2019- Yes [id number] 100mg Take 1 [facility] 100 mg 8-29 tablet by ity of tablet 00:00: mouth 2 [place] 00 (two) Medical times Branch daily. doxycycline 2019- Yes [id number] 100mg Take 1 [facility] 100 mg 8-29 tablet by ity of tablet 00:00: mouth (two) Medical times Branch daily. doxycycline 2019-0 Yes [id number] 100mg Take 1 [facility] 100 mg 8-29 tablet by ity of tablet 00:00: mouth 2 (two) Medical times Branch daily. doxycycline 2019- Yes [id number] 100mg Take 1 [facility] 100 mg 8-29 tablet by ity of tablet 00:00: mouth (two) Medical times Branch daily. doxycycline 2019- Yes [id number] 100mg Take 1 [facility] 100 mg 8-29 tablet by ity of tablet 00:00: mouth (two) Medical times Branch daily. doxycycline 2019-0 Yes [id number] 100mg Take 1 [facility] 100 mg 8-29 tablet by ity of tablet 00:00: mouth [place] (two) Medical times Branch daily. doxycycline 2018- Yes [id number] 100mg Take 1 [facility] 100 mg 8-29 tablet by ity of tablet 00:00: mouth (two) Medical times Branch daily. doxycycline 2020- No [id number] 100mg Take 1 [facility] 100 mg 8-29 05-19 tablet by ity of tablet 00:00: 00:[address] [place] [address] 00 :00 (two) Medical times Branch daily. doxycycline 2018-0 2020- No [id number] 100mg Take 1 [facility] 100 mg 8-29 05-19 tablet by ity of tablet 00:00: 00:[address] [place] [address] 00 :00 (two) Medical times Branch daily. spironolact 2019- Yes [id number] 25mg Take 1 [facility] one 25 mg 8-07 tablet by ity o f tablet 00:00: mouth [place] (two) Medical times Branch daily. spironolact 2019-0 Yes [id number] 25mg Take 1 [facility] one 25 mg 8-07 tablet by ity o f tablet 00:00: mouth 2 [place] (two) Medical times Branch daily. spironolact 2019-0 Yes [id number] 25mg Take 1 [facility] one 25 mg 8-07 tablet by ity o f tablet 00:00: mouth 2 [place] (two) Medical times Branch daily. spironolact 2019- Yes [id number] 25mg Take 1 [facility] one 25 mg 8-07 tablet by ity o f tablet 00:00: mouth (two) Medical times Branch daily. spironolact 2018-0 Yes [id number] 25mg Take 1 [facility] one 25 mg 8-07 tablet by ity o f tablet 00:00: mouth 2 (two) Medical times Branch daily. spironolact 2018-0 Yes [id number] 25mg Take 1 [facility] one 25 mg 8-07 tablet by ity o f tablet 00:00: mouth 2 (two) Medical times Branch daily. spironolact 2018- Yes [id number] 25mg Take 1 [facility] one 25 mg 8-07 tablet by ity o f tablet 00:00: mouth (two) Medical times Branch daily. spironolact Yes [id number] 25mg Take 1 [facility] one 25 mg 8-07 tablet by ity o f tablet 00:00: mouth (two) Medical times Branch daily. spironolact Yes [id number] 25mg Take 1 [facility] one 25 mg 8-07 tablet by ity o f tablet 00:00: mouth (two) Medical times Branch daily. spironolact 2018-0 Yes [id number] 25mg Take 1 [facility] one 25 mg 8-07 tablet by ity o f tablet 00:00: mouth (two) Medical times Branch daily. ALPRAZolam 2018- Yes [id number] 1mg Take 1 [facility] 1 mg tablet 7-22 tablet by ity of 00:00: mouth (two) Medical times Branch daily. Prn anxiety carvedilol 2018-0 Yes [id number] 3.125mg Take 1 [facility] 3.125 mg 7-22 tablet by ity of tablet 00:00: mouth (two) Medical times Branch daily with meals. foLIC acid 2018-0 Yes [id number] 1mg Take 1 [facility] 1 mg tablet 7-22 tablet by ity of 00:00: mouth 00 daily. Medical Branch furosemide 2018-0 Yes [id number] 40mg Take 1 [facility] 40 mg 7-22 tablet by ity of tablet 00:00: mouth 00 daily. Medical Branch hydrOXYzine 2018-0 Yes [id number] 50mg Take 1 [facility] 50 mg 7-22 tablet by ity of tablet 00:00: mouth 3 (three) Medical times Branch daily as needed for Itching. metFORMIN 2018- Yes [id number] 500mg Take 1 [facility] 500 mg 7-22 tablet by ity of tablet 00:00: mouth 2 (two) Medical times Branch daily with meals. pantoprazol 2018- Yes [id number] 40mg Take 1 [facility] e 40 mg EC 7-22 tablet by ity of tablet 00:00: mouth 00 daily. Medical Branch clobetasol 2018- Yes [id number] Apply to [facility] 0.05 % 7-22 area(s) 2 ity of cream 00:00: (two) [place] 00 times Medical daily. Branch triamcinolo Yes [id number] Apply to [facility] ne 7-22 affected ity of acetonide 00:00: area(s) 2 [place] 0.1 % cream 00 (two) Medical times Branch daily. ALPRAZolam 2018- Yes [id number] 1mg Take 1 [facility] 1 mg tablet 7-22 tablet by ity of 00:00: mouth 2 (two) Medical times Branch daily. Prn anxiety carvedilol 2018- Yes [id number] 3.125mg Take 1 [facility] 3.125 mg 7-22 tablet by ity of tablet 00:00: mouth 2 (two) Medical times Branch daily with meals. foLIC acid 2018-0 Yes [id number] 1mg Take 1 [facility] 1 mg tablet 7-22 tablet by ity of 00:00: mouth 00 daily. Medical Branch furosemide 2018-0 Yes [id number] 40mg Take 1 [facility] 40 mg 7-22 tablet by ity of tablet 00:00: mouth [place] 00 daily. Medical Branch hydrOXYzine 2018-0 Yes [id number] 50mg Take 1 [facility] 50 mg 7-22 tablet by ity of tablet 00:00: mouth 3 (three) Medical times Branch daily as needed for Itching. metFORMIN 2018- Yes [id number] 500mg Take 1 [facility] 500 mg 7-22 tablet by ity of tablet 00:00: mouth 2 (two) Medical times Branch daily with meals. pantoprazol 2018- Yes [id number] 40mg Take 1 [facility] e 40 mg EC 7-22 tablet by ity of tablet 00:00: mouth [place] 00 daily. Medical Branch clobetasol Yes [id number] Apply to [facility] 0.05 % 7-22 area(s) 2 ity of cream 00:00: (two) [place] 00 times Medical daily. Branch triamcinolo Yes [id number] Apply to [facility] ne 7-22 affected ity of acetonide 00:00: area(s) 2 [place] 0.1 % cream 00 (two) Medical times Branch daily. ALPRAZolam Yes [id number] 1mg Take 1 [facility] 1 mg tablet 7-22 tablet by ity of 00:00: mouth 2 (two) Medical times Branch daily. Prn anxiety carvedilol 2018- Yes [id number] 3.125mg Take 1 [facility] 3.125 mg 7-22 tablet by ity of tablet 00:00: mouth 2 (two) Medical times Branch daily with meals. foLIC acid 2018- Yes [id number] 1mg Take 1 [facility] 1 mg tablet 7-22 tablet by ity of 00:00: mouth 00 daily. Medical Branch furosemide 2018- Yes [id number] 40mg Take 1 [facility] 40 mg 7-22 tablet by ity of tablet 00:00: mouth 00 daily. Medical Branch hydrOXYzine 0 Yes [id number] 50mg Take 1 [facility] 50 mg 7-22 tablet by ity of tablet 00:00: mouth 3 (three) Medical times Branch daily as needed for Itching. metFORMIN Yes [id number] 500mg Take 1 [facility] 500 mg 7-22 tablet by ity of tablet 00:00: mouth 2 (two) Medical times Branch daily with meals. pantoprazol 2018- Yes [id number] 40mg Take 1 [facility] e 40 mg EC 7-22 tablet by ity of tablet 00:00: mouth [place] 00 daily. Medical Branch clobetasol Yes [id number] Apply to [facility] 0.05 % 7-22 area(s) 2 ity of cream 00:00: (two) [place] 00 times Medical daily. Branch triamcinolo Yes [id number] Apply to [facility] ne 7-22 affected ity of acetonide 00:00: area(s) 2 [place] 0.1 % cream 00 (two) Medical times Branch daily. ALPRAZolam 2018- Yes [id number] 1mg Take 1 [facility] 1 mg tablet 7-22 tablet by ity of 00:00: mouth 2 (two) Medical times Branch daily. Prn anxiety carvedilol 2018- Yes [id number] 3.125mg Take 1 [facility] 3.125 mg 7-22 tablet by ity of tablet 00:00: mouth 2 (two) Medical times Branch daily with meals. foLIC acid 2018- Yes [id number] 1mg Take 1 [facility] 1 mg tablet 7-22 tablet by ity of 00:00: mouth 00 daily. Medical Branch furosemide 2018- Yes [id number] 40mg Take 1 [facility] 40 mg 7-22 tablet by ity of tablet 00:00: mouth 00 daily. Medical Branch hydrOXYzine 2018- Yes [id number] 50mg Take 1 [facility] 50 mg 7-22 tablet by ity of tablet 00:00: mouth 3 (three) Medical times Branch daily as needed for Itching. metFORMIN 2018- Yes [id number] 500mg Take 1 [facility] 500 mg 7-22 tablet by ity of tablet 00:00: mouth 2 (two) Medical times Branch daily with meals. pantoprazol 2018- Yes [id number] 40mg Take 1 [facility] e 40 mg EC 7-22 tablet by ity of tablet 00:00: mouth 00 daily. Medical Branch clobetasol Yes [id number] Apply to [facility] 0.05 % 7-22 area(s) 2 ity of cream 00:00: (two) 00 times Medical daily. Branch triamcinolo Yes [id number] Apply to [facility] ne 7-22 affected ity of acetonide 00:00: area(s) 2 [place] 0.1 % cream 00 (two) Medical times Branch daily. ALPRAZolam 2018- Yes [id number] 1mg Take 1 [facility] 1 mg tablet 7-22 tablet by ity of 00:00: mouth 2 (two) Medical times Branch daily. Prn anxiety carvedilol 2018- Yes [id number] 3.125mg Take 1 [facility] 3.125 mg 7-22 tablet by ity of tablet 00:00: mouth 2 (two) Medical times Branch daily with meals. foLIC acid 2018- Yes [id number] 1mg Take 1 [facility] 1 mg tablet 7-22 tablet by ity of 00:00: mouth 00 daily. Medical Branch hydrOXYzine Yes [id number] 50mg Take 1 [facility] 50 mg 7-22 tablet by ity of tablet 00:00: mouth 3 (three) Medical times Branch daily as needed for Itching. metFORMIN Yes [id number] 500mg Take 1 [facility] 500 mg 7-22 tablet by ity of tablet 00:00: mouth 2 (two) Medical times Branch daily with meals. pantoprazol Yes [id number] 40mg Take 1 [facility] e 40 mg EC 7-22 tablet by ity of tablet 00:00: mouth daily. Medical Branch clobetasol Yes [id number] Apply to [facility] 0.05 % 7-22 area(s) 2 ity of cream 00:00: (two) times Medical daily. Branch triamcinolo Yes [id number] Apply to [facility] ne 7-22 affected ity of acetonide 00:00: area(s) 2 [place] 0.1 % cream 00 (two) Medical times Branch daily. ALPRAZolam Yes [id number] 1mg Take 1 [facility] 1 mg tablet 7-22 tablet by ity of 00:00: mouth (two) Medical times Branch daily. Prn anxiety carvedilol Yes [id number] 3.125mg Take 1 [facility] 3.125 mg 7-22 tablet by ity of tablet 00:00: mouth (two) Medical times Branch daily with meals. foLIC acid Yes [id number] 1mg Take 1 [facility] 1 mg tablet 7-22 tablet by ity of 00:00: mouth 00 daily. Medical Branch hydrOXYzine Yes [id number] 50mg Take 1 [facility] 50 mg 7-22 tablet by ity of tablet 00:00: mouth 3 (three) Medical times Branch daily as needed for Itching. metFORMIN Yes [id number] 500mg Take 1 [facility] 500 mg 7-22 tablet by ity of tablet 00:00: mouth 2 (two) Medical times Branch daily with meals. pantoprazol Yes [id number] 40mg Take 1 [facility] e 40 mg EC 7-22 tablet by ity of tablet 00:00: mouth [place] 00 daily. Medical Branch clobetasol Yes [id number] Apply to [facility] 0.05 % 7-22 area(s) 2 ity of cream 00:00: (two) [place] 00 times Medical daily. Branch triamcinolo Yes [id number] Apply to [facility] ne 7-22 affected ity of acetonide 00:00: area(s) 2 [place] 0.1 % cream 00 (two) Medical times Branch daily. ALPRAZolam Yes [id number] 1mg Take 1 [facility] 1 mg tablet 7-22 tablet by ity of 00:00: mouth 2 (two) Medical times Branch daily. Prn anxiety carvedilol Yes [id number] 3.125mg Take 1 [facility] 3.125 mg 7-22 tablet by ity of tablet 00:00: mouth 2 (two) Medical times Branch daily with meals. foLIC acid Yes [id number] 1mg Take 1 [facility] 1 mg tablet 7-22 tablet by ity of 00:00: mouth 00 daily. Medical Branch hydrOXYzine Yes [id number] 50mg Take 1 [facility] 50 mg 7-22 tablet by ity of tablet 00:00: mouth 3 (three) Medical times Branch daily as needed for Itching. metFORMIN Yes [id number] 500mg Take 1 [facility] 500 mg 7-22 tablet by ity of tablet 00:00: mouth 2 (two) Medical times Branch daily with meals. pantoprazol Yes [id number] 40mg Take 1 [facility] e 40 mg EC 7-22 tablet by ity of tablet 00:00: mouth 00 daily. Medical Branch clobetasol Yes [id number] Apply to [facility] 0.05 % 7-22 area(s) 2 ity of cream 00:00: (two) [place] 00 times Medical daily. Branch triamcinolo Yes [id number] Apply to [facility] ne 7-22 affected ity of acetonide 00:00: area(s) 2 [place] 0.1 % cream 00 (two) Medical times Branch daily. ALPRAZolam Yes [id number] 1mg Take 1 [facility] 1 mg tablet 7-22 tablet by ity of 00:00: mouth 2 (two) Medical times Branch daily. Prn anxiety carvedilol 2018- Yes [id number] 3.125mg Take 1 [facility] 3.125 mg 7-22 tablet by ity of tablet 00:00: mouth 2 (two) Medical times Branch daily with meals. foLIC acid Yes [id number] 1mg Take 1 [facility] 1 mg tablet 7-22 tablet by ity of 00:00: mouth 00 daily. Medical Branch hydrOXYzine 2018- Yes [id number] 50mg Take 1 [facility] 50 mg 7-22 tablet by ity of tablet 00:00: mouth 3 (three) Medical times Branch daily as needed for Itching. metFORMIN 2018- Yes [id number] 500mg Take 1 [facility] 500 mg 7-22 tablet by ity of tablet 00:00: mouth 2 (two) Medical times Branch daily with meals. pantoprazol Yes [id number] 40mg Take 1 [facility] e 40 mg EC 7-22 tablet by ity of tablet 00:00: mouth daily. Medical Branch clobetasol Yes [id number] Apply to [facility] 0.05 % 7-22 area(s) 2 ity of cream 00:00: (two) times Medical daily. Branch triamcinolo Yes [id number] Apply to [facility] ne 7-22 affected ity of acetonide 00:00: area(s) 2 [place] 0.1 % cream 00 (two) Medical times Branch daily. ALPRAZolam Yes [id number] 1mg Take 1 [facility] 1 mg tablet 7-22 tablet by ity of 00:00: mouth 2 (two) Medical times Branch daily. Prn anxiety carvedilol 2018- Yes [id number] 3.125mg Take 1 [facility] 3.125 mg 7-22 tablet by ity of tablet 00:00: mouth (two) Medical times Branch daily with meals. foLIC acid Yes [id number] 1mg Take 1 [facility] 1 mg tablet 7-22 tablet by ity of 00:00: mouth 00 daily. Medical Branch hydrOXYzine Yes [id number] 50mg Take 1 [facility] 50 mg 7-22 tablet by ity of tablet 00:00: mouth 3 (three) Medical times Branch daily as needed for Itching. metFORMIN 2018- Yes [id number] 500mg Take 1 [facility] 500 mg 7-22 tablet by ity of tablet 00:00: mouth 2 (two) Medical times Branch daily with meals. pantoprazol 2018- Yes [id number] 40mg Take 1 [facility] e 40 mg EC 7-22 tablet by ity of tablet 00:00: mouth 00 daily. Medical Branch clobetasol 2018- Yes [id number] Apply to [facility] 0.05 % 7-22 area(s) 2 ity of cream 00:00: (two) [place] 00 times Medical daily. Branch triamcinolo Yes [id number] Apply to [facility] ne 7-22 affected ity of acetonide 00:00: area(s) 2 [place] 0.1 % cream 00 (two) Medical times Branch daily. ALPRAZolam 2018- Yes [id number] 1mg Take 1 [facility] 1 mg tablet 7-22 tablet by ity of 00:00: mouth (two) Medical times Branch daily. Prn anxiety carvedilol 2018-0 Yes [id number] 3.125mg Take 1 [facility] 3.125 mg 7-22 tablet by ity of tablet 00:00: mouth 2 (two) Medical times Branch daily with meals. foLIC acid 2018-0 Yes [id number] 1mg Take 1 [facility] 1 mg tablet 7-22 tablet by ity of 00:00: mouth 00 daily. Medical Branch hydrOXYzine 2018-0 Yes [id number] 50mg Take 1 [facility] 50 mg 7-22 tablet by ity of tablet 00:00: mouth 3 (three) Medical times Branch daily as needed for Itching. metFORMIN 2018- Yes [id number] 500mg Take 1 [facility] 500 mg 7-22 tablet by ity of tablet 00:00: mouth 2 (two) Medical times Branch daily with meals. pantoprazol 2018- Yes [id number] 40mg Take 1 [facility] e 40 mg EC 7-22 tablet by ity of tablet 00:00: mouth [place] 00 daily. Medical Branch clobetasol 2018- Yes [id number] Apply to [facility] 0.05 % 7-22 area(s) 2 ity of cream 00:00: (two) [place] times Medical daily. Branch triamcinolo Yes [id number] Apply to [facility] ne 7-22 affected ity of acetonide 00:00: area(s) 2 [place] 0.1 % cream 00 (two) Medical times Branch daily. ALPRAZolam Yes [id number] 1mg Take 1 [facility] 1 mg tablet 7-22 tablet by ity of 00:00: mouth 2 [place] 00 (two) Medical times Branch daily. Prn anxiety carvedilol Yes [id number] 3.125mg Take 1 [facility] 3.125 mg 7-22 tablet by ity of tablet 00:00: mouth 2 (two) Medical times Branch daily with meals. foLIC acid Yes [id number] 1mg Take 1 [facility] 1 mg tablet 7-22 tablet by ity of 00:00: mouth [place] 00 daily. Medical Branch hydrOXYzine Yes [id number] 50mg Take 1 [facility] 50 mg 7-22 tablet by ity of tablet 00:00: mouth 3 (three) Medical times Branch daily as needed for Itching. metFORMIN 2018- Yes [id number] 500mg Take 1 [facility] 500 mg 7-22 tablet by ity of tablet 00:00: mouth 2 (two) Medical times Branch daily with meals. pantoprazol Yes [id number] 40mg Take 1 [facility] e 40 mg EC 7-22 tablet by ity of tablet 00:00: mouth [place] 00 daily. Medical Branch clobetasol Yes [id number] Apply to [facility] 0.05 % 7-22 area(s) 2 ity of cream 00:00: (two) [place] 00 times Medical daily. Branch triamcinolo Yes [id number] Apply to [facility] ne 7-22 affected ity of acetonide 00:00: area(s) 2 [place] 0.1 % cream 00 (two) Medical times Branch daily. ALPRAZolam Yes [id number] 1mg Take 1 [facility] 1 mg tablet 7-22 tablet by ity of 00:00: mouth 2 [place] 00 (two) Medical times Branch daily. Prn anxiety carvedilol Yes [id number] 3.125mg Take 1 [facility] 3.125 mg 7-22 tablet by ity of tablet 00:00: mouth 2 [place] 00 (two) Medical times Branch daily with meals. foLIC acid 2018- Yes [id number] 1mg Take 1 [facility] 1 mg tablet 7-22 tablet by ity of 00:00: mouth 00 daily. Medical Branch hydrOXYzine 2018- Yes [id number] 50mg Take 1 [facility] 50 mg 7-22 tablet by ity of tablet 00:00: mouth 3 (three) Medical times Branch daily as needed for Itching. metFORMIN 2018- Yes [id number] 500mg Take 1 [facility] 500 mg 7-22 tablet by ity of tablet 00:00: mouth 2 (two) Medical times Branch daily with meals. pantoprazol 2018- Yes [id number] 40mg Take 1 [facility] e 40 mg EC 7-22 tablet by ity of tablet 00:00: mouth 00 daily. Medical Branch clobetasol Yes [id number] Apply to [facility] 0.05 % 7-22 area(s) 2 ity of cream 00:00: (two) 00 times Medical daily. Branch triamcinolo Yes [id number] Apply to [facility] ne 7-22 affected ity of acetonide 00:00: area(s) 2 [place] 0.1 % cream 00 (two) Medical times Branch daily. ALPRAZolam Yes [id number] 1mg Take 1 [facility] 1 mg tablet 7-22 tablet by ity of 00:00: mouth 2 (two) Medical times Branch daily. Prn anxiety carvedilol 2018- Yes [id number] 3.125mg Take 1 [facility] 3.125 mg 7-22 tablet by ity of tablet 00:00: mouth 2 (two) Medical times Branch daily with meals. foLIC acid 2018- Yes [id number] 1mg Take 1 [facility] 1 mg tablet 7-22 tablet by ity of 00:00: mouth 00 daily. Medical Branch furosemide 2018-0 Yes [id number] 40mg Take 1 [facility] 40 mg 7-22 tablet by ity of tablet 00:00: mouth [place] 00 daily. Medical Branch hydrOXYzine 2018- Yes [id number] 50mg Take 1 [facility] 50 mg 7-22 tablet by ity of tablet 00:00: mouth 3 (three) Medical times Branch daily as needed for Itching. metFORMIN 2018- Yes [id number] 500mg Take 1 [facility] 500 mg 7-22 tablet by ity of tablet 00:00: mouth 2 [place] 00 (two) Medical times Branch daily with meals. pantoprazol Yes [id number] 40mg Take 1 [facility] e 40 mg EC 7-22 tablet by ity of tablet 00:00: mouth [place] 00 daily. Medical Branch spironolact Yes [id number] 25mg Take 1 [facility] one 25 mg 7-22 tablet by ity o f tablet 00:00: mouth 2 [place] 00 (two) Medical times Branch daily. clobetasol Yes [id number] Apply to [facility] 0.05 % 7-22 area(s) 2 ity of cream 00:00: (two) [place] 00 times Medical daily. Branch triamcinolo Yes [id number] Apply to [facility] ne 7-22 affected ity of acetonide 00:00: area(s) 2 [place] 0.1 % cream 00 (two) Medical times Branch daily. furosemide 2019- No [id number] 40mg Take 1 [facility] 40 mg 7-22 08-26 tablet by ity of tablet 00:00: 00:00 mouth [place] 00 :00 daily. Medical Branch furosemide 2019- No [id number] 40mg Take 1 [facility] 40 mg 7-22 08-26 tablet by ity of tablet 00:00: 00:00 mouth [place] 00 :00 daily. [facility] Branch spironolact 2019- No [id number] 25mg Take 1 [facility] one 25 mg 7-22 08-07 tablet by ity of tablet 00:00: 00:00 mouth 2 [place] 00 :00 (two) Medical times Branch daily. Pitavastati Yes 2mg Take 2 mg U nivers n (LIVALO) 6-18 by mouth ity o f 2 mg Tab 16:18: daily. [address] Pitavastati Yes 2mg Take 2 mg U nivers n (LIVALO) 6-18 by mouth ity o f 2 mg Tab 16:18: daily. [address] Pitavastati Yes 2mg Take 2 mg U nivers n (LIVALO) 6-18 by mouth ity o f 2 mg Tab 16:18: daily. [address] Pitavastati 2019-0 Yes 2mg Take 2 mg U nivers n (LIVALO) 6-18 by mouth ity o f 2 mg Tab 16:18: daily. [address] Branch Pitavastati 0 Yes 2mg Take 2 mg U nivers n (LIVALO) 6-18 by mouth ity o f 2 mg Tab 16:18: daily. [address] Branch Pitavastati Yes 2mg Take 2 mg U nivers n (LIVALO) 6-18 by mouth ity o f 2 mg Tab 16:18: daily. [address] Branch Pitavastati Yes 2mg Take 2 mg U nivers n (LIVALO) 6-18 by mouth ity o f 2 mg Tab 16:18: daily. [address] Branch Pitavastati Yes 2mg Take 2 mg U nivers n (LIVALO) 6-18 by mouth ity o f 2 mg Tab 16:18: daily. [address] Pitavastati Yes 2mg Take 2 mg U nivers n (LIVALO) 6-18 by mouth ity o f 2 mg Tab 16:18: daily. [address] Branch Pitavastati Yes 2mg Take 2 mg U nivers n (LIVALO) 6-18 by mouth ity o f 2 mg Tab 16:18: daily. [address] Branch Pitavastati Yes 2mg Take 2 mg U nivers n (LIVALO) 6-18 by mouth ity o f 2 mg Tab 16:18: daily. [address] Pitavastati Yes 2mg Take 2 mg U nivers n (LIVALO) 6-18 by mouth ity o f 2 mg Tab 16:18: daily. [address] Branch Pitavastati Yes 2mg Take 2 mg U nivers n (LIVALO) 6-18 by mouth ity o f 2 mg Tab 16:18: daily. [address] Branch traMADOL Yes [id number] 50mg Take 1 Un epifanio (ULTRAM) 50 6-18 tablet by ity of mg tablet 00:00: mouth [place] [address] every 6 Medical (six) Branch hours as needed for Pain (scale 4-6). traMADOL Yes [id number] 50mg Take 1 Un epifanio (ULTRAM) 50 6-18 tablet by ity of mg tablet 00:00: mouth [place] 00 every 6 Medical (six) Branch hours as needed for Pain (scale 4-6). traMADOL 2019-0 Yes [id number] 50mg Take 1 Un epifanio (ULTRAM) 50 6-18 tablet by ity of mg tablet 00:00: mouth [place] 00 every 6 Medical (six) Branch hours as needed for Pain (scale 4-6). traMADOL 2019-0 Yes [id number] 50mg Take 1 Un epifanio (ULTRAM) 50 6-18 tablet by ity of mg tablet 00:00: mouth [place] 00 every 6 Medical (six) Branch hours as needed for Pain (scale 4-6). traMADOL 2019-0 Yes [id number] 50mg Take 1 Un epifanio (ULTRAM) 50 6-18 tablet by ity of mg tablet 00:00: mouth [place] 00 every 6 Medical (six) Branch hours as needed for Pain (scale 4-6). traMADOL 2019-0 Yes [id number] 50mg Take 1 Un epifanio (ULTRAM) 50 6-18 tablet by ity of mg tablet 00:00: mouth [place] 00 every 6 Medical (six) Branch hours as needed for Pain (scale 4-6). traMADOL 2019-0 Yes [id number] 50mg Take 1 Un epifanio (ULTRAM) 50 6-18 tablet by ity of mg tablet 00:00: mouth [place] 00 every 6 Medical (six) Branch hours as needed for Pain (scale 4-6). traMADOL 2019-0 Yes [id number] 50mg Take 1 Un epifanio (ULTRAM) 50 6-18 tablet by ity of mg tablet 00:00: mouth [place] 00 every 6 Medical (six) Branch hours as needed for Pain (scale 4-6). traMADOL 2019-0 Yes [id number] 50mg Take 1 Un epifanio (ULTRAM) 50 6-18 tablet by ity of mg tablet 00:00: mouth [place] 00 every 6 Medical (six) Branch hours as needed for Pain (scale 4-6). traMADOL 2019-0 Yes [id number] 50mg Take 1 Un epifanio (ULTRAM) 50 6-18 tablet by ity of mg tablet 00:00: mouth [place] 00 every 6 Medical (six) Branch hours as needed for Pain (scale 4-6). traMADOL 2019-0 Yes [id number] 50mg Take 1 Un epifanio (ULTRAM) 50 6-18 tablet by ity of mg tablet 00:00: mouth [place] 00 every 6 Medical (six) Branch hours as needed for Pain (scale 4-6). traMADOL 2019-0 Yes [id number] 50mg Take 1 Un epifanio (ULTRAM) 50 6-18 tablet by ity of mg tablet 00:00: mouth [place] 00 every 6 Medical (six) Branch hours as needed for Pain (scale 4-6). traMADOL 2019-0 Yes [id number] 50mg Take 1 Un epifanio (ULTRAM) 50 6-18 tablet by ity of mg tablet 00:00: mouth [place] 00 every 6 Medical (six) Branch hours as needed for Pain (scale 4-6). traMADOL 2019-0 Yes [id number] 50mg Take 1 Un epifanio (ULTRAM) 50 6-18 tablet by ity of mg tablet 00:00: mouth [place] 00 every 6 Medical (six) Branch hours as needed for Pain (scale 4-6). traMADOL 2019-0 Yes [id number] 50mg Take 1 Un epifanio (ULTRAM) 50 6-18 tablet by ity of mg tablet 00:00: mouth [place] 00 every 6 Medical (six) Branch hours as needed for Pain (scale 4-6). traMADOL 2019-0 Yes [id number] 50mg Take 1 Un epifanio (ULTRAM) 50 6-18 tablet by ity of mg tablet 00:00: mouth [place] 00 every 6 Medical (six) Branch hours as needed for Pain (scale 4-6). traMADOL 2019-0 Yes [id number] 50mg Take 1 Un epifanio (ULTRAM) 50 6-18 tablet by ity of mg tablet 00:00: mouth [place] 00 every 6 Medical (six) Branch hours as needed for Pain (scale 4-6). traMADOL 2019-0 Yes [id number] 50mg Take 1 Un epifanio (ULTRAM) 50 6-18 tablet by ity of mg tablet 00:00: mouth [place] 00 every 6 Medical (six) Branch hours as needed for Pain (scale 4-6). traMADOL 2019-0 Yes [id number] 50mg Take 1 Un epifanio (ULTRAM) 50 6-18 tablet by ity of mg tablet 00:00: mouth [place] 00 every 6 Medical (six) Branch hours as needed for Pain (scale 4-6). traMADOL Yes [id number] 50mg Take 1 Un epifanio (ULTRAM) 50 6-18 tablet by ity of mg tablet 00:00: mouth [place] 00 every 6 Medical (six) Branch hours as needed for Pain (scale 4-6). traMADOL 2020- No [id number] 50mg Take 1 U nivers (ULTRAM) 50 6-18 05-19 tablet by it y of mg tablet 00:00: 00:00 mouth [place] 00 :00 every 6 Medical (six) Branch hours as needed for Pain (scale 4-6). traMADOL 2020- No [id number] 50mg Take 1 U nivers (ULTRAM) 50 6-18 05-19 tablet by it y of mg tablet 00:00: 00:00 mouth [place] 00 :00 every 6 Medical (six) Branch hours as needed for Pain (scale 4-6). blood sugar Yes [id number] Use BID, Univers diagnostic 4-23 DX E11.9 ity o f (ACCU-CHEK 00:00: (Brand [place] GUIDE) 00 upon Medical strip insurance Branch approval) Lancets Yes [id number] Use BID, U nivers Misc 4-23 DX E11.9 ity of 00:00: (Brand [place] 00 upon Medical insurance Branch approval) Blood-Gluco Yes [id number] Use BID, Univers se Meter 4-23 DX E11.9 ity of (ACCU-CHEK 00:00: (Brand [place] GUIDE 00 upon Medical GLUCOSE insurance Branch METER) [facility] approval) ACCU-CHEK GUIDE blood sugar 2018- Yes [id number] Use BID, Univers diagnostic 4-23 DX E11.9 ity o f (ACCU-CHEK 00:00: (Brand [place] GUIDE) 00 upon Medical strip insurance Branch approval) Lancets Yes [id number] Use BID, U nivers Misc 4-23 DX E11.9 ity of 00:00: (Brand [place] 00 upon Medical insurance Branch approval) Blood-Gluco Yes [id number] Use BID, Univers se Meter 4-23 DX E11.9 ity of (ACCU-CHEK 00:00: (Brand [place] GUIDE 00 upon Medical GLUCOSE insurance Branch METER) Misc approval) ACCU-CHEK GUIDE blood sugar 2019- Yes [id number] Use BID, Univers diagnostic 4-23 DX E11.9 ity o f (ACCU-CHEK 00:00: (Brand [place] GUIDE) 00 upon Medical strip insurance Branch approval) Lancets 2019- Yes [id number] Use BID, U nivers Misc 4-23 DX E11.9 ity of 00:00: (Brand [place] 00 upon Medical insurance Branch approval) Blood-Gluco 2019- Yes [id number] Use BID, Univers se Meter 4-23 DX E11.9 ity of (ACCU-CHEK 00:00: (Brand [place] GUIDE 00 upon Medical GLUCOSE insurance Branch METER) Misc approval) ACCU-CHEK GUIDE blood sugar 2018- Yes [id number] Use BID, Univers diagnostic 4-23 DX E11.9 ity o f (ACCU-CHEK 00:00: (Brand [place] GUIDE) 00 upon Medical strip insurance Branch approval) Lancets 2019- Yes [id number] Use BID, U nivers Misc 4-23 DX E11.9 ity of 00:00: (Brand [place] 00 upon Medical insurance Branch approval) Blood-Gluco 2019- Yes [id number] Use BID, Univers se Meter 4-23 DX E11.9 ity of (ACCU-CHEK 00:00: (Brand [place] GUIDE 00 upon Medical GLUCOSE insurance Branch METER) Misc approval) ACCU-CHEK GUIDE blood sugar 2019- Yes [id number] Use BID, Univers diagnostic 4-23 DX E11.9 ity o f (ACCU-CHEK 00:00: (Brand [place] GUIDE) 00 upon Medical strip insurance Branch approval) Lancets 2019- Yes [id number] Use BID, U nivers Misc 4-23 DX E11.9 ity of 00:00: (Brand [place] 00 upon Medical insurance Branch approval) Blood-Gluco 2019-0 Yes [id number] Use BID, Univers se Meter 4-23 DX E11.9 ity of (ACCU-CHEK 00:00: (Brand [place] GUIDE 00 upon Medical GLUCOSE insurance Branch METER) Misc approval) ACCU-CHEK GUIDE blood sugar 2019- Yes [id number] Use BID, Univers diagnostic 4-23 DX E11.9 ity o f (ACCU-CHEK 00:00: (Brand [place] GUIDE) 00 upon Medical strip insurance Branch approval) Lancets 2019- Yes [id number] Use BID, U nivers Misc 4-23 DX E11.9 ity of 00:00: (Brand [place] 00 upon Medical insurance Branch approval) Blood-Gluco 2019- Yes [id number] Use BID, Univers se Meter 423 DX E11.9 ity of (ACCU-CHEK 00:00: (Brand [place] GUIDE 00 upon Medical GLUCOSE insurance Branch METER) Misc approval) ACCU-CHEK GUIDE blood sugar 2019- Yes [id number] Use BID, Univers diagnostic 423 DX E11.9 ity o f (ACCU-CHEK 00:00: (Brand [place] GUIDE) 00 upon Medical strip insurance Branch approval) Lancets 2019 Yes [id number] Use BID, U nivers Misc 09-18 DX E11.9 ity of 00:00: (Brand [place] 00 upon Medical insurance Branch approval) Blood-Gluco 2019- Yes [id number] Use BID, Univers se Meter 23 DX E11.9 ity of (ACCU-CHEK 00:00: (Brand [place] GUIDE 00 upon Medical GLUCOSE insurance Branch METER) Misc approval) ACCU-CHEK GUIDE blood sugar 2019- Yes [id number] Use BID, Univers diagnostic 23 DX E11.9 ity o f (ACCU-CHEK 00:00: (Brand [place] GUIDE) 00 upon Medical strip insurance Branch approval) Lancets 2019- Yes [id number] Use BID, U nivers Misc 23 DX E11.9 ity of 00:00: (Brand [place] 00 upon Medical insurance Branch approval) Blood-Gluco 2019- Yes [id number] Use BID, Univers se Meter 423 DX E11.9 ity of (ACCU-CHEK 00:00: (Brand [place] GUIDE 00 upon Medical GLUCOSE insurance Branch METER) Misc approval) ACCU-CHEK GUIDE blood sugar 2019- Yes [id number] Use BID, Univers diagnostic 4-23 DX E11.9 ity o f (ACCU-CHEK 00:00: (Brand [place] GUIDE) 00 upon Medical strip insurance Branch approval) Lancets 2019- Yes [id number] Use BID, U nivers Misc 4-23 DX E11.9 ity of 00:00: (Brand [place] 00 upon Medical insurance Branch approval) Blood-Gluco 2019- Yes [id number] Use BID, Univers se Meter 4-23 DX E11.9 ity of (ACCU-CHEK 00:00: (Brand [place] GUIDE 00 upon Medical GLUCOSE insurance Branch METER) Misc approval) ACCU-CHEK GUIDE blood sugar 2019- Yes [id number] Use BID, Univers diagnostic 4-23 DX E11.9 ity o f (ACCU-CHEK 00:00: (Brand [place] GUIDE) 00 upon Medical strip insurance Branch approval) Lancets 2019- Yes [id number] Use BID, U nivers Misc 4-23 DX E11.9 ity of 00:00: (Brand [place] 00 upon Medical insurance Branch approval) Blood-Gluco 2018- Yes [id number] Use BID, Univers se Meter 23 DX E11.9 ity of (ACCU-CHEK 00:00: (Brand [place] GUIDE 00 upon Medical GLUCOSE insurance Branch METER) Misc approval) ACCU-CHEK GUIDE blood sugar 2018- Yes [id number] Use BID, Univers diagnostic -23 DX E11.9 ity o f (ACCU-CHEK 00:00: (Brand [place] GUIDE) 00 upon Medical strip insurance Branch approval) Lancets 2019- Yes [id number] Use BID, U nivers Misc -23 DX E11.9 ity of 00:00: (Brand [place] 00 upon Medical insurance Branch approval) Blood-Gluco 2019- Yes [id number] Use BID, Univers se Meter 4-23 DX E11.9 ity of (ACCU-CHEK 00:00: (Brand [place] GUIDE 00 upon Medical GLUCOSE insurance Branch METER) Misc approval) ACCU-CHEK GUIDE Blood-Gluco 2019- Yes [id number] Use BID, Univers se Meter 4-23 DX E11.9 ity of (ACCU-CHEK 00:00: (Brand [place] GUIDE 00 upon Medical GLUCOSE insurance Branch METER) Misc approval) ACCU-CHEK GUIDE Blood-Gluco 2019-0 Yes [id number] Use BID, Univers se Meter 4-23 DX E11.9 ity of (ACCU-CHEK 00:00: (Brand [place] GUIDE 00 upon Medical GLUCOSE insurance Branch METER) Misc approval) ACCU-CHEK GUIDE Blood-Gluco 2018- Yes [id number] Use BID, Univers se Meter 4-23 DX E11.9 ity of (ACCU-CHEK 00:00: (Brand [place] GUIDE 00 upon Medical GLUCOSE insurance Branch METER) Misc approval) ACCU-CHEK GUIDE Blood-Gluco 2018- Yes [id number] Use BID, Univers se Meter 4-23 DX E11.9 ity of (ACCU-CHEK 00:00: (Brand [place] GUIDE 00 upon Medical GLUCOSE insurance Branch METER) Misc approval) ACCU-CHEK GUIDE Blood-Gluco 2018- Yes [id number] Use BID, Univers se Meter -23 DX E11.9 ity of (ACCU-CHEK 00:00: (Brand [place] GUIDE 00 upon Medical GLUCOSE insurance Branch METER) Misc approval) ACCU-CHEK GUIDE Blood-Gluco 2018- Yes [id number] Use BID, Univers se Meter -23 DX E11.9 ity of (ACCU-CHEK 00:00: (Brand [place] GUIDE 00 upon Medical GLUCOSE insurance Branch METER) Misc approval) ACCU-CHEK GUIDE Blood-Gluco 2018- Yes [id number] Use BID, Univers se Meter -23 DX E11.9 ity of (ACCU-CHEK 00:00: (Brand [place] GUIDE 00 upon Medical GLUCOSE insurance Branch METER) Misc approval) ACCU-CHEK GUIDE Blood-Gluco 2018- Yes [id number] Use BID, Univers se Meter -23 DX E11.9 ity of (ACCU-CHEK 00:00: (Brand [place] GUIDE 00 upon Medical GLUCOSE insurance Branch METER) Misc approval) ACCU-CHEK GUIDE blood sugar 2018- Yes [id number] Use BID, Univers diagnostic 4-23 DX E11.9 ity o f (ACCU-CHEK 00:00: (Brand [place] GUIDE) 00 upon Medical strip insurance Branch approval) Lancets 2019- Yes [id number] Use BID, U nivers Misc 4-23 DX E11.9 ity of 00:00: (Brand [place] 00 upon Medical insurance Branch approval) Blood-Gluco 2018- Yes [id number] Use BID, Univers se Meter 4-23 DX E11.9 ity of (ACCU-CHEK 00:00: (Brand [place] GUIDE 00 upon Medical GLUCOSE insurance Branch METER) Misc approval) ACCU-CHEK GUIDE Blood-Gluco 2018-0 2020- No [id number] Use BID, Univers se Meter 09-18 DX E11.9 ity of (ACCU-CHEK 00:00: 00:00 ([place] 00 :00 upon Medical GLUCOSE insurance Branch METER) Misc approval) ACCU-CHEK GUIDE Blood-Gluco 2018-0 2020- No [id number] Use BID, Univers se Meter 09-18 DX E11.9 ity of (ACCU-CHEK 00:00: 00:00 ([place] 00 :00 upon Medical GLUCOSE insurance Branch METER) Misc approval) ACCU-CHEK GUIDE lactulose 2019-0 Yes [id number] 15mL Take 15 mL Univers 10 gram/15 4-08 by mouth 3 ity of mL solution 00:00: (three) [place] 00 times Medical daily. Branch lactulose 2019-0 Yes [id number] 15mL Take 15 mL Univers 10 gram/15 4-08 by mouth 3 ity of mL solution 00:00: (three) [place] 00 times Medical daily. Branch lactulose 2019-0 Yes [id number] 15mL Take 15 mL Univers 10 gram/15 4-08 by mouth 3 ity of mL solution 00:00: (three) [place] 00 times Medical daily. Branch lactulose 2019-0 Yes [id number] 15mL Take 15 mL Univers 10 gram/15 4-08 by mouth 3 ity of mL solution 00:00: (three) [place] 00 times Medical daily. Branch lactulose 2019-0 Yes [id number] 15mL Take 15 mL Univers 10 gram/15 4-08 by mouth 3 ity of mL solution 00:00: (three) [place] 00 times Medical daily. Branch lactulose 2019-0 Yes [id number] 15mL Take 15 mL Univers 10 gram/15 4-08 by mouth 3 ity of mL solution 00:00: (three) [place] 00 times Medical daily. Branch lactulose 2019-0 Yes [id number] 15mL Take 15 mL Univers 10 gram/15 4-08 by mouth 3 ity of mL solution 00:00: (three) [place] 00 times Medical daily. Branch lactulose 2019-0 Yes [id number] 15mL Take 15 mL Univers 10 gram/15 4-08 by mouth 3 ity of mL solution 00:00: (three) [place] 00 times Medical daily. Branch lactulose 2019-0 Yes [id number] 15mL Take 15 mL Univers 10 gram/15 4-08 by mouth 3 ity of mL solution 00:00: (three) [place] 00 times Medical daily. Branch lactulose 2019-0 Yes [id number] 15mL Take 15 mL Univers 10 gram/15 4-08 by mouth 3 ity of mL solution 00:00: (three) [place] 00 times Medical daily. Branch lactulose 2019-0 Yes [id number] 15mL Take 15 mL Univers 10 gram/15 4-08 by mouth 3 ity of mL solution 00:00: (three) [place] 00 times Medical daily. Branch lactulose 2019-0 Yes [id number] 15mL Take 15 mL Univers 10 gram/15 4-08 by mouth 3 ity of mL solution 00:00: (three) [place] 00 times Medical daily. Branch lactulose 2019-0 Yes [id number] 15mL Take 15 mL Univers 10 gram/15 4-08 by mouth 3 ity of mL solution 00:00: (three) [place] 00 times Medical daily. Branch furosemide 2019-0 Yes [id number] 40mg Take 1 Univers 40 mg 2-12 tablet by ity of tablet 00:00: mouth [place] 00 every Medical morning Branch and evening. furosemide 2019-0 Yes [id number] 40mg Take 1 Univers 40 mg 2-12 tablet by ity of tablet 00:00: mouth [place] 00 every Medical morning Branch and evening. furosemide 2019-0 Yes [id number] 40mg Take 1 Univers 40 mg 2-12 tablet by ity of tablet 00:00: mouth [place] 00 every Medical morning Branch and evening. furosemide 2019-0 Yes [id number] 40mg Take 1 Univers 40 mg 2-12 tablet by ity of tablet 00:00: mouth [place] 00 every Medical morning Branch and evening. furosemide 2019-0 Yes [id number] 40mg Take 1 Univers 40 mg 2-12 tablet by ity of tablet 00:00: mouth [place] 00 every Medical morning Branch and evening. furosemide 2019-0 Yes [id number] 40mg Take 1 Univers 40 mg 2-12 tablet by ity of tablet 00:00: mouth [place] 00 every Medical morning Branch and evening. furosemide 2019-0 Yes [id number] 40mg Take 1 Univers 40 mg 2-12 tablet by ity of tablet 00:00: mouth [place] 00 every Medical morning Branch and evening. furosemide 2019-0 Yes [id number] 40mg Take 1 Univers 40 mg 2-12 tablet by ity of tablet 00:00: mouth [place] 00 every Medical morning Branch and evening. furosemide 2019-0 Yes [id number] 40mg Take 1 Univers 40 mg 2-12 tablet by ity of tablet 00:00: mouth [place] 00 every Medical morning Branch and evening. furosemide 2019-0 Yes [id number] 40mg Take 1 Univers 40 mg 2-12 tablet by ity of tablet 00:00: mouth [place] 00 every Medical morning Branch and evening. furosemide 2019-0 Yes [id number] 40mg Take 1 Univers 40 mg 2-12 tablet by ity of tablet 00:00: mouth [place] 00 every Medical morning Branch and evening. furosemide 2019-0 Yes [id number] 40mg Take 1 Univers 40 mg 2-12 tablet by ity of tablet 00:00: mouth [place] 00 every Medical morning Branch and evening. furosemide 2019-0 Yes [id number] 40mg Take 1 Univers 40 mg 2-12 tablet by ity of tablet 00:00: mouth [place] 00 every Medical morning Branch and evening. lisinopril 2019-0 Yes [id number] 20mg Take 1 Univers 20 mg 2-06 tablet by ity of tablet 00:00: mouth [place] 00 daily. Medical Branch lisinopril 2019-0 Yes [id number] 20mg Take 1 Univers 20 mg 2-06 tablet by ity of tablet 00:00: mouth [place] 00 daily. Medical Branch lisinopril 2019-0 Yes [id number] 20mg Take 1 Univers 20 mg 2-06 tablet by ity of tablet 00:00: mouth [place] 00 daily. Medical Branch lisinopril 2019-0 Yes [id number] 20mg Take 1 Univers 20 mg 2-06 tablet by ity of tablet 00:00: mouth [place] 00 daily. Medical Branch lisinopril 2019-0 Yes [id number] 20mg Take 1 Univers 20 mg 2-06 tablet by ity of tablet 00:00: mouth [place] 00 daily. Medical Branch lisinopril 2019-0 Yes [id number] 20mg Take 1 Univers 20 mg 2-06 tablet by ity of tablet 00:00: mouth [place] 00 daily. Medical Branch lisinopril 2019-0 Yes [id number] 20mg Take 1 Univers 20 mg 2-06 tablet by ity of tablet 00:00: mouth [place] 00 daily. [facility] Branch lisinopril 2019-0 Yes [id number] 20mg Take 1 Univers 20 mg 2-06 tablet by ity of tablet 00:00: mouth [place] 00 daily. [facility] lisinopril 2018-0 Yes [id number] 20mg Take 1 Univers 20 mg 2-06 tablet by ity of tablet 00:00: mouth [place] 00 daily. [facility] lisinopril 2018-0 Yes [id number] 20mg Take 1 Univers 20 mg 2-06 tablet by ity of tablet 00:00: mouth [place] 00 daily. [facility] lisinopril 0 Yes [id number] 20mg Take 1 Univers 20 mg 2-06 tablet by ity of tablet 00:00: mouth [place] 00 daily. [facility] lisinopril 0 Yes [id number] 20mg Take 1 Univers 20 mg 2-06 tablet by ity of tablet 00:00: mouth [place] 00 daily. [facility] lisinopril 0 Yes [id number] 20mg Take 1 Univers 20 mg 2-06 tablet by ity of tablet 00:00: mouth [place] 00 daily. [facility] No known No Univers medications [facility] No known No Univers medications [facility] Immunizations Ordered Filled Immunization Date Status Comments [facility] e Immunization Name Name SARS-COV-2 COVID-19 2021-02-05 Completed Unive rsity of PFIZER VACCINE 00:00:00 [facility] SARS-COV-2 COVID-19 2021-02-05 Completed Unive rsity of PFIZER VACCINE 00:00:00 [facility] SARS-COV-2 COVID-19 2021-02-05 Completed Unive rsity of PFIZER VACCINE 00:00:00 [facility] SARS-COV-2 COVID-19 2021-02-05 Completed Unive rsity of PFIZER VACCINE 00:00:00 [facility] SARS-COV-2 COVID-19 2021-02-05 Completed Unive rsity of PFIZER VACCINE 00:00:00 [facility] Influenza Virus 2018-04-11 Completed Universit y of Vaccine Quad IM 3+ 00:00:00 [facility] Influenza Virus 2018-04-11 Completed Universit y of Vaccine Quad IM 3+ 00:00:00 [facility] Influenza Virus 2018-04-11 Completed Universit y of Vaccine Quad IM 3+ 00:00:00 [facility] Influenza Virus 2018-04-11 Completed Universit y of Vaccine Quad IM 3+ 00:00:00 [facility] Influenza Virus 2018-04-11 Completed Universit y of Vaccine Quad IM 3+ 00:00:00 [facility] Influenza Virus 2018-04-11 Completed Universit y of Vaccine Quad IM 3+ 00:00:00 [facility] Influenza Virus 2018-04-11 Completed Universit y of Vaccine Quad IM 3+ 00:00:00 [facility] Influenza Virus 2018-04-11 Completed Universit y of Vaccine Quad IM 3+ 00:00:00 [facility] Influenza Virus 2018-04-11 Completed Universit y of Vaccine Quad IM 3+ 00:00:00 [facility] Influenza Virus 2018-04-11 Completed Universit y of Vaccine Quad IM 3+ 00:00:00 [facility] Influenza Virus 2018-04-11 Completed Universit y of Vaccine Quad IM 3+ 00:00:00 [facility] Influenza Virus 2018-04-11 Completed Universit y of Vaccine Quad IM 3+ 00:00:00 [facility] Influenza Virus 2018-04-11 Completed Universit y of Vaccine Quad IM 3+ 00:00:00 [facility] Influenza Virus 2018-04-11 Completed Universit y of Vaccine Quad IM 3+ 00:00:00 [facility] Influenza Virus 2018-04-11 Completed Universit y of Vaccine Quad IM 3+ 00:00:00 [facility] Influenza Virus 2018-04-11 Completed Universit y of Vaccine Quad IM 3+ 00:00:00 [facility] Influenza Virus 2018-04-11 Completed Universit y of Vaccine Quad IM 3+ 00:00:00 [facility] Influenza Virus 2018-04-11 Completed Universit y of Vaccine Quad IM 3+ 00:00:00 [facility] Influenza Virus 2018-04-11 Completed Universit y of Vaccine Quad IM 3+ 00:00:00 [facility] Influenza Virus 2018-04-11 Completed Universit y of Vaccine Quad IM 3+ 00:00:00 [facility] Influenza Virus 2018-04-11 Completed Universit y of Vaccine Quad IM 3+ 00:00:00 [facility] Influenza Virus 2018-04-11 Completed Universit y of Vaccine Quad IM 3+ 00:00:00 [facility] Influenza Virus 2018-04-11 Completed Universit y of Vaccine Quad IM 3+ 00:00:00 [facility] Influenza Virus 2018-04-11 Completed Universit y of Vaccine Quad IM 3+ 00:00:00 [facility] Influenza Virus 2018-04-11 Completed Universit y of Vaccine Quad IM 3+ 00:00:00 [facility] Influenza Virus 2018-04-11 Completed Universit y of Vaccine Quad IM 3+ 00:00:00 [facility] Influenza Virus 2018-04-11 Completed Universit y of Vaccine Quad IM 3+ 00:00:00 [facility] Influenza Virus 2018-04-11 Completed Universit y of Vaccine Quad IM 3+ 00:00:00 [facility] Influenza Virus 2018-04-11 Completed Universit y of Vaccine Quad IM 3+ 00:00:00 [facility] Td 2016-09-18 Completed University of 00:00:00 [facility] Td 2016-09-18 Completed University of 00:00:00 [facility] Td 2016-09-18 Completed University of 00:00:00 [facility] Td 2016-09-18 Completed University of 00:00:00 [facility] Td 2016-09-18 Completed University of 00:00:00 [facility] Td 2016-09-18 Completed University of 00:00:00 [facility] Td 2016-09-18 Completed University of 00:00:00 [facility] Td 2016-09-18 Completed University of 00:00:00 [facility] Td 2016-09-18 Completed University of 00:00:00 [facility] Td 2016-09-18 Completed University of 00:00:00 [facility] Td 2016-09-18 Completed University of 00:00:00 [facility] Td 2016-09-18 Completed University of 00:00:00 [facility] Td 2016-09-18 Completed University of 00:00:00 [facility] Td 2016-09-18 Completed University of 00:00:00 [facility] Td 2016-09-18 Completed University of 00:00:00 [facility] Td 2016-09-18 Completed University of 00:00:00 [facility] Td 2016-09-18 Completed University of 00:00:00 [facility] Td 2016-09-18 Completed University of 00:00:00 [facility] Td 2016-09-18 Completed University of 00:00:00 [facility] Td 2016-09-18 Completed University of 00:00:00 [facility] Td 2016-09-18 Completed University of 00:00:00 [facility] Td 2016-09-18 Completed University of 00:00:00 [facility] Td 2016-09-18 Completed University of 00:00:00 [facility] Td 2016-09-18 Completed University of 00:00:00 [facility] Td 2016-09-18 Completed University of 00:00:00 [facility] Td 2016-09-18 Completed University of 00:00:00 [facility] Td 2016-09-18 Completed University of 00:00:00 [facility] Td 2016-09-18 Completed University of 00:00:00 [facility] Td 2016-09-18 Completed University of 00:00:00 [facility] Td 2016-09-18 Completed University of 00:00:00 [facility] Td 2016-09-18 Completed University of 00:00:00 [facility] Vital Signs Vital Name Observation Time Observation Value Comments Source HEIGHT 2019-12-24 167.6 cm 00:00:00 WEIGHT 2019-12-24 103 kg 00:00:00 Systolic blood 2021-04-01 119 mm[Hg] Brewer of pressure 20:00:00 [facility] Diastolic blood 2021-04-01 65 mm[Hg] Brewer o f pressure 20:00:00 [facility] Heart rate 2021-04-01 57 /min University of 20:00:00 [facility] Respiratory rate 2021-04-01 16 /min University of 20:00:00 [facility] Oxygen saturation 2021-04-01 100 /min Simultaneous [facility] in Arterial blood 20:00:00 filing. User may [facility] by Pulse oximetry not have seen Branch previous data. Body temperature 2021-04-01 36.22 Corrina University of 18:07:00 [facility] Body height 2021-04-01 166 cm University of 18:07:00 [facility] Body weight 2021-04-01 104.327 kg University of 18:07:00 [facility] BMI 2021-04-01 37.86 kg/m2 University of 18:07:00 [facility] HEIGHT 2021-03-12 167.6 cm 07:20:00 WEIGHT 2021-03-12 102.059 kg 07:20:00 HEIGHT 2021-03-12 167.6 cm 07:20:00 WEIGHT 2021-03-12 102.059 kg 07:20:00 HEIGHT 2021-02-03 167.6 cm 09:45:00 WEIGHT 2021-02-03 105.87 kg 09:45:00 HEIGHT 2020-11-26 167.6 cm 09:01:00 WEIGHT 2020-11-26 102.059 kg 09:01:00 HEIGHT 2020-11-26 167.6 cm 09:01:00 WEIGHT 2020-11-26 102.059 kg 09:01:00 HEIGHT 2020-11-04 167.6 cm 11:24:00 WEIGHT 2020-11-04 99.791 kg 11:24:00 HEIGHT 2020-10-28 169 cm 08:50:00 WEIGHT 2020-10-28 103.692 kg 08:50:00 HEIGHT 2020-10-28 169 cm 08:50:00 WEIGHT 2020-10-28 103.692 kg 08:50:00 HEIGHT 2020-09-01 167.6 cm 13:01:00 WEIGHT 2020-09-01 106.459 kg 13:01:00 HEIGHT 2020-09-01 167.6 cm 13:01:00 WEIGHT 2020-09-01 106.459 kg 13:01:00 Systolic blood 2020-08-19 132 mm[Hg] University of pressure 14:00:00 [facility] Diastolic blood 2020-08-19 77 mm[Hg] Brewer o f pressure 14:00:00 [facility] Heart rate 2020-08-19 71 /min [facility] 14:00:00 [facility] Respiratory rate 2020-08-19 18 /min [facility] 14:00:00 [facility] Oxygen saturation 2020-08-19 99 /min [facility] Arterial blood 14:00:00 [facility] by Pulse oximetry [place] Body temperature 2020-08-[address] [facility] 12:32:00 [facility] Body weight 2020-08-19 106.142 kg University 12:32:00 [facility] BMI 2020-08-19 37.77 kg/m2 University of 12:32:00 [facility] Systolic blood 2020-08-19 132 mm[Hg] University of pressure 14:00:00 [facility] Diastolic blood 2020-08-19 77 mm[Hg] University o f pressure 14:00:00 [facility] Heart rate 2020-08-19 71 /min University of 14:00:00 [facility] Respiratory rate 2020-08-19 18 /min University of 14:00:00 [facility] Oxygen saturation 2020-08-19 99 /min University of in Arterial blood 14:00:00 [facility] by Pulse oximetry Branch Body temperature 2020-08-19 36.94 Corrina University of 12:32:00 [facility] Body weight 2020-08-19 106.142 kg University of 12:32:00 [facility] BMI 2020-08-19 37.77 kg/m2 University of 12:32:00 [facility] Systolic blood 2020-06-26 120 mm[Hg] University of pressure 03:00:00 [facility] Diastolic blood 2020-06-26 103 mm[Hg] University o f pressure 03:00:00 [facility] Heart rate 2020-06-26 83 /min University of 03:00:00 [facility] Respiratory rate 2020-06-26 20 /min University of 03:00:00 [facility] Oxygen saturation 2020-06-26 99 /min University of in Arterial blood 03:00:00 [facility] by Pulse oximetry Branch Body temperature 2020-06-25 36.44 Corrina University of 23:03:00 [facility] Body height 2020-06-25 167.6 cm University of 23:03:00 [facility] Body weight 2020-06-25 105.235 kg University of 23:03:00 [facility] BMI 2020-06-25 37.45 kg/m2 University of 23:03:00 [facility] Systolic blood 2020-06-26 120 mm[Hg] University of pressure 03:00:00 [facility] Diastolic blood 2020-06-26 103 mm[Hg] University o f pressure 03:00:00 [facility] Heart rate 2020-06-26 83 /min University of 03:00:00 [facility] Respiratory rate 2020-06-26 20 /min University of 03:00:00 [facility] Oxygen saturation 2020-06-26 99 /min [facility] in Arterial blood 03:00:00 [facility] by Pulse oximetry Branch Body temperature 2020-06-25 36.44 Corrina University of 23:03:00 [facility] Body height 2020-06-25 167.6 cm University of 23:03:00 [facility] Body weight 2020-06-25 105.235 kg University of 23:03:00 [facility] BMI 2020-06-25 37.45 kg/m2 University of 23:03:00 [facility] HEIGHT 2020-03-13 167.6 cm 10:38:00 WEIGHT 2020-03-13 108.41 kg 10:38:00 HEIGHT 2020-03-13 167.6 cm 10:38:00 WEIGHT 2020-03-13 108.41 kg 10:38:00 HEIGHT 2019-12-24 167.6 cm 00:00:00 WEIGHT 2019-12-24 103 kg 00:00:00 Systolic blood 2019-01-21 131 mm[Hg] University of pressure 21:03:00 [facility] Diastolic blood 2019-01-21 79 mm[Hg] University o f pressure 21:03:00 [facility] Heart rate 2019-01-21 73 /min University of 21:03:00 [facility] Body temperature 2019-01-21 37.06 Corrina University of 21:03:00 [facility] Respiratory rate 2019-01-21 18 /min University of 21:03:00 [facility] Body weight 2019-01-21 103.103 kg University of 21:03:00 [facility] BMI 2019-01-21 36.69 kg/m2 University of 21:03:00 [facility] Oxygen saturation 2019-01-21 98 /min [facility] in Arterial blood 21:03:00 [facility] by Pulse oximetry Branch Systolic blood 2019-01-21 131 mm[Hg] University of pressure 21:03:00 [facility] Diastolic blood 2019-01-21 79 mm[Hg] University o f pressure 21:03:00 [facility] Heart rate 2019-01-21 73 /min University of 21:03:00 [facility] Body temperature 2019-01-21 37.06 Corrina University of 21:03:00 [facility] Respiratory rate 2019-01-21 18 /min University of 21:03:00 [facility] Body weight 2019-01-21 103.103 kg University of 21:03:00 [facility] BMI 2019-01-21 36.69 kg/m2 [facility] 21:03:00 [facility] Oxygen saturation 2019-01-21 98 /min [facility] Arterial blood 21:03:00 [facility] by Pulse oximetry [place] Procedures Procedure Date / Time Performing Clinician Source Performed TROPONIN I 2021-04-01 19:14:00 [place] [facility] COMP. METABOLIC PANEL 2021-04-01 19:14:00 [facility] ([id number]) [facility] AMMONIA, PLASMA 2021-04-01 19:12:00 [facility] CBC WITH DIFF 2021-04-01 19:12:00 [facility] XR CHEST 1 VW 2021-04-01 18:51:09 [facility] URINALYSIS 2021-04-01 18:40:00 [facility] PROTHROMBIN TIME / INR 2021-04-01 18:30:[address] [place] [facility] CONSENT/REFUSAL FOR 2021-04-01 17:58:35 Doctor Unassigned, [facility] DIAGNOSIS AND TREATMENT [place] [facility] SARS-COV-2 COVID-19 2021-02-05 15:47:55 [facility] VACCINE,0.3ML,IM (PFIZER) [place] Med[facility] l [facility] XR CHEST 1 VW 2020-08-19 13:29:53 Wendy Bull [facility] HB ECG ROUTINE & RHYTHM 2020-08-19 13:05:46 [facility] LIPASE 2020-08-19 13:01:00 Wendy Bull [facility] TROPONIN I 2020-08-19 13:01:00 Wendy Bull [facility] HEPATIC FUNCTION PANEL 2020-08-19 13:01:00 [facility] Bull [facility] ([id number]) (ALB,T.PRO,BILI Medical Branch T,BU/BC,ALT,AST,ALK PHOS) BASIC METABOLIC PANEL 2020-08-19 13:01:00 Wendy Bull [facility] (NA, K, CL, CO2, GLUCOSE, Medica l Branch BUN, CREATININE, CA) CBC WITH DIFF 2020-08-19 13:01:00 Wendy Bull [facility] N-TERMINAL PRO-BNP 2020-08-19 13:01:00 Wendy Bull [facility] COVID-19 (ID NOW RAPID 2020-08-19 13:01:00 Wendy Bull [facility] TESTING) [facility] CONSENT/REFUSAL FOR 2020-08-19 12:21:55 Doctor Unassigned, [facility] DIAGNOSIS AND TREATMENT [place] [facility] AMMONIA, PLASMA 2020-06-26 01:01:00 [place] [facility] PROTHROMBIN TIME / INR 2020-06-26 01:01:00 [place] San [facility] XR CHEST 1 VW 2020-06-25 23:46:19 [place] [facility] LIPASE 2020-06-25 23:43:00 [place] [facility] MAGNESIUM 2020-06-25 23:43:00 [place] [facility] TROPONIN I 2020-06-25 23:43:00 [place] [facility] HEPATIC FUNCTION PANEL 2020-06-25 23:43:00 [place] [facility] ([id number]) (ALB,T.PRO,BILI [facility] T,BU/BC,ALT,AST,ALK PHOS) BASIC METABOLIC PANEL 2020-06-25 23:43:00 [place] San [facility] (NA, K, CL, CO2, GLUCOSE, Medica l Branch BUN, CREATININE, CA) CBC WITH DIFF 2020-06-25 23:43:00 [place] [facility] URINALYSIS 2020-06-25 23:43:00 [place] [facility] N-TERMINAL PRO-BNP 2020-06-25 23:43:00 [place] [facility] COVID-19 (ID NOW RAPID 2020-06-25 23:43:00 [place] [facility] TESTING) Medical Branch NOTICE OF PRIVACY 2020-06-25 22:41:45 Doctor Arboleda [facility] PRACTICES [place] [facility] [place] CONSENT/REFUSAL FOR 2020-06-25 22:41:29 Trung Conte [facility] DIAGNOSIS AND TREATMENT [place] [facility] [place] HOME HEALTH - OTHER 2019-02-08 05:01:00 Trung Conte [facility] Name Medical [facility] HEALTH - OTHER 2019-01-31 05:01:00 Trung Conte [facility] Name Medical [place] POCT HEMOGLOBIN A1C TEST 2019-01-21 21:30:00 Brenda Rod [facility] DME/SUPPLY JUSTIFICATION 2019-01-17 05:01:00 Doctor Arboleda [facility] Name Medical [facility] HEALTH - OTHER 2019-01-07 05:01:00 [facility] Name Medical [facility] HEALTH - OTHER 2019-01-02 05:01:00 Doctor [facility] Name Medical [facility] HEALTH - OTHER 2018-12-28 05:01:00 Doctor [facility] Name [facility] INSURANCE CORRESPONDENCE 2018-12-17 05:01:00 Doctor Arboleda [facility] [place] [facility] PATIENT QUESTIONNAIRE 2016-10-19 05:01:00 Doctor Arboleda [facility] Name [facility] SCANNED LAB RESULTS 2016-10-13 05:01:00 Doctor [facility]boleda [facility] [place] Encounters Start End Encounter Admission Attending Care Care Encounter Source Date/Time Date/Time Type Type Clinicians Facility Department ID 2021-03-28 Emergency [facility] [id number] Univers 08:04:12 ity [facility] 2021-03-27 Emergency [facility] [id number] Univers 20:25:53 [facility] 2020-09-24 Inpatient Liang, HCAPM ENDO [id number] [facility] 08:30:00 Anil [id number] [facility] 2019-12-24 Inpatient [facility] [id number] [facility] 16:51:00 JOSH 2021-05-12 2021-05-12 Outpatient EL SLE SLE [id number] SLE 00:00:00 00:00:00 2021-04-29 2021-04-29 Outpatient EL RENNYRI, SLEH SLEH [id number] SLEH 10:09:55 23:59:00 [facility] 2021-04-29 2021-04-29 Outpatient EL MARISAADERI, SLE SLEH [id number] SLE 10:09:10 10:08:00 [facility] 2021-04-29 2021-04-29 Outpatient EL RENNYRI, SLEH SLEH [id number] SLE 09:35:14 09:59:00 [facility] 2021-04-29 2021-04-29 Outpatient EL MARISAADERI, SLEH SLE [id number] SLE 09:35:00 09:34:00 [facility] 2021-04-29 2021-04-29 Outpatient EL SLE SLEH [id number] SLE 08:33:09 08:33:09 2021-04-29 2021-04-29 Outpatient PADMINI, SLE SLE [id number] SLE 00:00:00 00:00:00 [facility] 2021-04-02 2021-04-02 Telephone [facility] [id number] Univers 00:00:00 00:00:00 Pearl VENEGAS [id number] i ty of [place] [id number] [facility] [phone] Nm dical NAL 044 [facility] 2021-04-01 2021-04-01 Emergency X [facility] ERT [id number] Univers 13:07:00 15:37:00 CHANDRAKANT schmitt of [facility] 2021-04-01 2021-04-01 Emergency [facility] [id number] Univers 13:07:00 15:37:00 Chandrakant VENEGAS [id number] i [id number] [phone] [facility] 084 [place] 2021-03-16 2021-03-16 [facility] [id number] Univers 00:00:00 00:00:00 Pearl Venegas [id number] i [id number] [phone] Nm dical nal 044 [facility] 2021-03-15 2021-03-15 [facility] 1.2.840.114 [id number] Univers 00:00:00 00:00:00 Pearl Venegas [id number] i [id number] [phone] Nm dical nal 044 [facility] 2021-03-12 2021-03-12 Outpatient [place] [facility] Radiology 1 [id number] SLEH 06:21:33 15:05:00 [facility] 2021-02-23 2021-02-23 Outpatient [place] [facility] [id number] SLEH 00:00:00 23:59:00 [facility] 2021-02-23 2021-02-23 Outpatient SLE SLE [id number] SLEH 10:02:57 10:02:57 2021-02-05 2021-02-05 Outpatient Juan J GUIDRY [facility] [id number] Univers 10:50:00 10:50:00 TAM schmitt [facility] 2021-02-05 2021-02-05 Imm/Inj Nurse, Adc Pob Immunization [facility] 1.2.840.114 [id number] Univers 10:46:45 10:47:11 Visit Tam Guidry [id number] ity [facility] [id number] [phone] Nm dical nal 421 [facility] 2021-02-03 2021-02-03 Outpatient SLE SLE [id number] SLEH 00:00:00 00:00:00 2021-01-21 2021-01-[address] [facility] [id number] SLEH 00:00:00 00:00:00 [facility] 2021-01-21 2021-01-21 Outpatient KHADERI, SLE SLEH [id number] SLEH 00:00:00 00:00:00 [facility] 2021-01-21 2021-01-21 Outpatient EL SLEH SLEH [id number] SLEH 00:00:00 00:00:00 2020-12-30 2020-12-30 Outpatient SLEH SLEH [id number] SLEH 00:00:00 00:00:00 2020-12-17 2020-12-17 Outpatient EL SLEH SLEH [id number] SLEH 00:00:00 00:00:00 2020-12-17 2020-12-17 Outpatient PADMINI, SLE SLE [id number] SLEH 00:00:00 00:00:00 [facility] 2020-12-17 2020-12-17 Outpatient PADMINI, SLE SLEH [id number] SLEH 00:00:00 00:00:00 [facility] 2020-11-26 2020-11-26 Outpatient EL SLEH SLEH [id number] SLEH 00:00:00 00:00:00 2020-11-04 2020-11-04 Outpatient EL SLEH SLEH [id number] SLEH 00:00:00 00:00:00 2020-10-28 2020-10-28 Outpatient EL SLEH SLE [id number] SLEH 00:00:00 00:00:00 2020-10-28 2020-10-28 Outpatient SLE SLE [id number] SLEH 00:00:00 00:00:00 2020-10-21 2020-10-21 Outpatient SLE SLE [id number] SLEH 00:00:00 00:00:00 2020-10-21 2020-10-21 Telephone [facility] 1.2.840.114 [id number] Univers 00:00:00 00:00:00 Pearl Venegas [id number] i [place] [id number] Anyi jauregui Professio [phone] [address] 2020-10-14 2020-10-14 [facility] 1.2.840.114 [id number] [facility] 11:21:55 11:27:44 ne Visit Pearl Venegas [id number] ity [facility] [id number] [phone] Nm dical nal [address] [place] [address] 2020-10-14 2020-10-14 [id number] Univers 09:20:00 09:20:00 PEARL [id number] [facility] 2020-10-14 2020-10-14 [facility] [id number] Univers 09:20:00 09:20:00 PEARL [facility] 2020-10-13 2020-10-13 [facility] 1.2.840.114 [id number] [facility] 00:00:00 00:00:00 Pearl Venegas [id number] i ty [facility] [id number] [phone] Nm dical nal [address] [place] [address] 2020-10-08 2020-10-08 Outpatient EL KHADERI, SLEH SLEH [id number] SLEH 00:00:00 00:00:00 [facility] 2020-10-08 2020-10-08 Outpatient SLEH SLEH [id number] SLEH 00:00:00 00:00:00 2020-10-08 2020-10-08 Outpatient EL KHADERI, SLEH SLEH [id number] SLEH 00:00:00 00:00:00 [facility] 2020-10-08 2020-10-08 Outpatient KHADERI, SLEH SLEH [id number] SLEH 00:00:00 00:00:00 [facility] 2020-10-08 2020-10-08 Outpatient KHADERI, SLEH SLEH [id number] SLEH 00:00:00 00:00:00 [facility] 2020-10-08 2020-10-08 Outpatient KHADERI, SLEH SLEH [id number] SLEH 00:00:00 00:00:00 [facility] 2020-09-01 2020-09-01 Outpatient SLEH SLEH [id number] SLEH 00:00:00 00:00:00 2020-09-01 2020-09-01 Outpatient JOSE FRANCISCO WHITEHEAD SLE SLEH [id number] SLEH 00:00:00 00:00:00 2020-08-19 2020-08-19 Emergency Wagoner, [facility] 1.2.840.114 [id number] [facility] 07:35:00 10:07:00 Wendy Venegas [id number] it[place] of [id number] [phone] [facility] 084 [place] 2020-08-19 2020-08-19 Emergency [facility] 1.2.840.114 [id number] 07:35:00 10:07:00 Wendy Venegas [id number] [place] [id number] [place] [phone] [facility] 2020-08-19 2020-08-19 Orders Doctor LICONA 1.2.840.114 [id number] [facility] 00:00:00 00:00:00 Only Unassigned, TOY [id number] ity of [place] [facility] [id number] Bryce as [phone] [facility] 009 [place] 2020-08-19 2020-08-19 Orders Doctor LICONA 1.2.840.114 [id number] 00:00:00 00:00:00 Only Unassigned, TOY [id number] [place] [facility] [id number] [phone] [facility] 2020-08-03 2020-08-03 [facility] 1.2.840.114 [id number] [facility] 00:00:00 00:00:00 Pearl Venegas [id number] i [place] [id number] [phone] Nm dic[address] 2020-08-03 2020-08-03 [facility] 1.2.840.114 [id number] 00:00:00 00:00:00 Pearl Venegas [id number] [place] [id number] Professio [phone] nal 044 [facility] 2020-07-19 2020-07-19 Outpatient EL SLEH SLEH [id number] SLEH 00:00:00 00:00:00 2020-07-18 2020-07-18 Outpatient EL SLEH SLEH [id number] SLEH 00:00:00 00:00:00 2020-06-28 2020-06-28 Outpatient SLEH SLE [id number] SLEH 00:00:00 00:00:00 2020-06-25 2020-06-[address] [facility] [place] [id number] [facility] 17:04:00 23:09:00 [place] Venegas [id number] [place] [id number] [phone] [facility] 084 Branch 2020-06-25 2020-06-[address] [facility] ([place] [place] [id number] 17:04:00 23:09:00 Carolina Venegas [id number] [place] [id number] [place] [phone] [id number] 2020-06-25 2020-06-25 Orders Doctor MONAE 1.2.840.114 [id number] Univers 00:00:00 00:00:00 Only Unassigned, TOY 350.1.13.10 ity of [place] [facility] [id number] Bryce as [phone] [facility] 009 Branch 2020-06-25 2020-06-25 Orders Doctor MONAE 1.2.840.114 [id number] 00:00:00 00:00:00 Only Unassigned, TOY 350.1.13.10 [place] [facility] [phone] 009 2020-06-22 2020-06-22 [facility] 1.2.840.114 [id number] [facility] 00:00:00 00:00:00 Pearl Venegas 350.1.13.10 i [id number] [phone] Me dical nal [address] [place] [address] 2020-06-22 2020-06-22 [facility] 1.2.840.114 [id number] 00:00:00 00:00:00 Pearl [place] 350.1.13.10 [place] [id number] [phone] [address] 2020-03-13 2020-03-13 Outpatient EL SLEH SLEH [id number] SLEH 00:00:00 00:00:00 2020-03-13 2020-03-13 Outpatient SLEH SLEH [id number] SLEH 00:00:00 00:00:00 2020-03-13 2020-03-13 Outpatient JESSICA, SLEH SLEH [id number] SLEH 00:00:00 00:00:00 [facility] 2020-03-13 2020-03-13 Outpatient EL KHADERI, SLEH SLEH [id number] SLEH 00:00:00 00:00:00 [facility] 2020-02-18 2020-02-18 Outpatient SLEH SLEH [id number] SLEH 00:00:00 00:00:00 2020-02-18 2020-02-18 Outpatient EL SLEH SLEH [id number] SLEH 00:00:00 00:00:00 2020-02-18 2020-02-18 Outpatient SLEH SLEH [id number] SLEH 00:00:00 00:00:00 2020-02-05 2020-02-05 Outpatient SLEH SLEH [id number] SLEH 00:00:00 00:00:00 2020-02-05 2020-02-05 Outpatient KHADERI, SLEH SLEH [id number] SLEH 00:00:00 00:00:00 [facility] 2020-02-05 2020-02-05 Outpatient SLEH SLEH [id number] SLEH 00:00:00 00:00:00 2020-01-28 2020-01-28 Outpatient EL SLEH SLEH [id number] SLEH 00:00:00 00:00:00 2020-01-14 2020-01-14 Outpatient EL SLEH SLEH [id number] SLEH 00:00:00 00:00:00 2019-09-11 2019-09-11 [facility] 1.2.840.114 [id number] Univers 00:00:00 00:00:00 Pearl Venegas 350.1.13.10 i [id number] [phone] Nm dical [address] 2019-09-11 2019-09-11 [facility] 1.2.840.114 [id number] 00:00:00 00:00:00 Pearl Venegas 350.1.13.10 [place] [id number] Professio [phone] [address] 2019-08-20 2019-08-20 Outpatient SLEH SLEH [id number] SLEH 00:00:00 00:00:00 [id number] 2019-02-08 2019-02-08 Orders Doctor MONAE 1.2.840.114 [id number] Univers 00:00:00 00:00:00 Only Unassigned, TOY 350.1.13.10 ity of [place] [facility] [id number] Bryce as [phone] [address] 2019-02-08 2019-02-08 Orders Doctor MONAE 1.2.840.114 [id number] 00:00:00 00:00:00 Only Unassigned, TOY 350.1.13.10 [place] [facility] [id number] [id number] [id number] 2019-01-31 2019-01-31 Orders Doctor LICONA 1.2.840.114 [id number] [facility] 00:00:00 00:00:00 Only Unassigned, TOY 350.1.13.10 ity of [place] [facility] [id number] Bryce as [phone] [address] 2019-01-31 2019-01-31 Orders Doctor LICONA 1.2.840.114 [id number] 91 00:00:00 00:00:00 Only Unassigned, TOY 350.1.13.10 [facility] 4.2.7.2.686 [phone] 009 2019-01-23 2019-01-23 Telephone Brenda Rod [facility] 1.2.840.114 [id number] Univers 00:00:00 00:00:00 [place] 350.1.13.10 [place] [phone] [address] 2019-01-23 2019-01-23 Brenda Amado [facility] 1.2.840.114 [id number] 00:00:00 00:00:00 [place] 350.1.13.10 [place] 4.2.7.2.686 Professio [phone] [address] 2019-01-21 2019-01-21 Office Brenda Rod [facility] 1.2.840.114 [id number] [facility] 15:52:08 16:26:09 Visit C [place] 350.1.13.10 [place] [phone] [address] 2019-01-21 2019-01-21 Office Brenda Rod [facility] 1.2.840.114 [id number] 15:52:08 16:26:09 Visit [place] 350.1.13.10 [place] 4.2.7.2.686 Professio [phone] [address] 2019-01-17 2019-01-17 Orders Doctor MONAE 1.2.840.114 [id number] Univers 00:00:00 00:00:00 Only Unassigned, TOY 350.1.13.10 ity of [facility] 4.2.7.2.686 Bryce as [phone] [address] 2019-01-17 2019-01-17 Orders Doctor MONAE 1.2.840.114 [id number] 00:00:00 00:00:00 Only Unassigned, TOY 350.1.13.10 [facility] 4.2.7.2.686 [phone] [facility] 2019-01-07 2019-01-07 Telephone Brenda Rod [facility] 1.2.840.114 [id number] [facility] 00:00:00 00:00:00 [place] 350.1.13.10 [place] [phone] [address] 2019-01-07 2019-01-07 Orders Doctor MONAE 1.2.840.114 [id number] Univers 00:00:00 00:00:00 Only Unassigned, TOY 350.1.13.10 ity of [facility] 4.2.7.2.686 Bryce as [phone] [address] 2019-01-02 2019-01-02 Orders Doctor MONAE 1.2.840.114 [id number] Univers 00:00:00 00:00:00 Only Unassigned, TOY 350.1.13.10 ity of [facility] 4.2.7.2.686 Bryce as [phone] [address] 2019-01-02 2019-01-02 Refill MarcelBrenda [facility] 1.2.840.114 [id number] Univers 00:00:00 00:00:00 [place] 350.1.13.10 [place] [phone] [address] 2019-01-02 2019-01-02 Orders Doctor MONAE 1.2.840.114 [id number] 00:00:00 00:00:00 Only Unassigned, TOY 350.1.13.10 [facility] 4.2.7.2.686 [phone] 2018-12-28 2018-12-28 Orders Doctor MONAE 1.2.840.114 [id number] Univers 00:00:00 00:00:00 Only Unassigned, TOY 350.1.13.10 ity of [facility] 4.2.7.2.686 Bryce as [phone] [address] 2018-12-28 2018-12-28 Orders Doctor MONAE 1.2.840.114 [id number] 00:00:00 00:00:00 Only Unassigned, TOY 350.1.13.10 [facility] 4.2.7.2.686 [phone] 2018-12-21 2018-12-21 Telephone Brenda Rod [facility] 1.2.840.114 [id number] Univers 00:00:00 00:00:00 [place] 350.1.13.10 [place] [phone] [place] [address] [facility] 2018-12-17 2018-12-17 Orders Doctor MONAE Raygoza2.840.114 [id number] Univers 00:00:00 00:00:00 Only Unassigned, TOY 350.1.13.10 ity of [facility] 4.2.7.2.686 Bryce as [phone] [address] 2016-10-19 2016-10-19 Orders Doctor MONAE Raygoza2.840.114 [id number] 00:00:00 00:00:00 Only Unassigned, TOY 350.1.13.10 [facility] 4.2.7.2.686 [phone] [facility] 2016-10-19 2016-10-19 Orders Doctor MONAE Lawson.2.840.114 [id number] Univers 00:00:00 00:00:00 Only Unassigned, TOY 350.1.13.10 ity of [facility] 4.2.7.2.686 Bryce as [phone] [address] 2016-10-13 2016-10-13 Orders Doctor MONAE Raygoza2.840.114 [id number] Univers 00:00:00 00:00:00 Only Unassigned, TOY 350.1.13.10 ity of [facility] 4.2.7.2.686 Bryce as [phone] [address] Results Test Description Test Time Test Comments Results Result [facility] e Comments MR, ABDOMEN, WITH 2021-05-03 REFERRING MD: 14:52:00 ANIL SALVADOR Include [facility] CENTERName: KALEN GRIGGS : 1955 Sex: M FINAL REPORT MR, ABDOMEN, WITH \\T\\ WITHOUT CONTRAST HISTORY: Liver disease, chronic, history of HCC, monitoring COMPARISON: Multiple abdomen MRIs, most recent October 21, 2020. Mesenteric angiogram and chemotherapy embolization of multiple bilateral hepatic lesions 03/12/2021. TECHNIQUE: MRI of the abdomen was performed with and without gadolinium. Multiplanar, multisequence images were obtained before and following intravenous injection of intravenous gadolinium contrast. FINDINGS: Hepatobiliary Findings:Contour and signal intensity: Nodular contour and heterogenous signal intensity compatible with cirrhosis. Focal treated observations:- Segment VIII treatment cavity (image 28, series 12) has decreased in size and now measures 0.9 cm, previously 1.3 cm. Previously visualized peripheral nodular enhancement is not well seen on this exam. No new nodular component or washout. (LR-TR nonviable).- New segment III treatment cavity (image 32, series 12) measures 1.2 cm with minimal peripheral nodular enhancement (image 31, series 11) and no washout (LR-TR equivocal). Focal observations satisfying imaging criteria for HCC (LI-RADS 5): None. Focal observations at least mildly suspicious for HCC (LI-RADS 4 or 3):- Similar 1 cm segment seven arterially hyperenhancing observation without washout or capsule (LR-3). - Multiple scattered subcentimeter arterially hyperenhancing observations without washout or capsule, some of which are new (example images 51 and 30 on the arterial phase) and some are old (LR-3). Other focal observations (LI-RADS 2 or 1): - Stable 1 cm cyst in hepatic segment V (image 17, series 8). Portal vein: Portal vein is patent and measures 1.2 cm in diameter. Arterial anatomy: Right hepatic artery arises from the celiac trunk. The left hepatic artery arises from the left gastric artery which arises directly off of the aorta.Gallbladder and bile ducts: Similar mildly distended gallbladder without filling defects. No wall thickening. No adjacent inflammatory changes. Spleen: Persistent splenomegaly. No focal masses.Varices: Similar large paraesophageal and perigastric varices. Ascites: None. Additional Findings:Lung bases: Unremarkable. Pancreas: No focal masses or ductal dilation.Adrenals: No nodules.Kidneys and ureters: Normal symmetric enhancement. No hydronephrosis. Stable subcentimeter right cyst.Bowel: No abnormal dilation or wall thickening. Periampullary duodenal diverticulumLymph nodes: No lymphadenopathy.Periton eum: No free fluid or air.Vessels: Recannulized umbilical vein. Similar nonocclusive peripheral thrombus in the splenic vein/perigastric varix.Abdominal wall/Soft Tissues: Bilateral gynecomastia. Slightly smaller partially visualized fluid-filled umbilical hernia.Bones: No acute findings or focal suspicious osseous lesions. IMPRESSION: 1.New segment III treatment cavity with minimal peripheral nodular enhancement and no washout (LR-TR equivocal).2.Smaller previously visualized segment VIII treatment cavity without residual or recurrent disease (LR-TR nonviable).3.Multiple scattered subcentimeter LR-3 observations, some of which are old and some are new as above. Attention on follow-up exams.4.Cirrhosis and portal hypertension with stable large paraesophageal. Patent main portal vein. Signed: Stefano Mckeon MDReport Verified Date/Time: 05/03/2021 14:52:21 Reading Location: [address] Transitional Reading Room , CHEST, 2021-04-29 REFERRING MD: WITHOUT CONTRAST 16:45:00 ANIL SALVADOR Mets [facility] 1955 Sex: M FINAL REPORT CT of the Chest dated 04/29/2021 COMPARISON: January 21, 2021 CLINICAL INFORMATION: Unlisted Reason for Exam Comment: Axial images of the chest were obtained from thoracic inlet to the upper abdomen without intravenous contrast. This exam was performed according to our departmental dose-optimization program, which includes automated exposure control, adjustment of the mA and/or kV according to patient size and/or use of interactive reconstruction technique. Heart is normal in size. Vascular calcification is seen in the thoracic aorta and coronary arteries. Great vessels are unremarkable. No adenopathy in the mediastinum or perihilar region. Trachea and mainstem bronchi are patent. A stable 8 mm groundglass nodule is seen in the right lower lobe. The rest of the lungs are clear. No mass lesion or airspace disease is noted. No interstitial disease or bronchiectasis is present. No pleural effusion or pleural based mass is seen. Visualized upper abdomen demonstrates cirrhotic liver. 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 Impression: Stable right lower lobe groundglass nodule. Signed: Brenda De Dios [facility] Lawnort Verified Date/Time: 04/29/2021 16:45:28 Reading Location: [facility] C013Y CT Body Reading Room AND/OR JOINT 2021-04-29 REFERRING MD: IMAGING, WHOLE 14:33:00 ANIL SALVADOR BODY METS WORK UP [facility] : 1955 Sex: M FINAL REPORT PROCEDURE: BONE SCAN, WHOLE BODY CPT CODE: 61445 INDICATION: HCC PROTOCOL: 21.8 mCi of Tc-99m MDP was injected intravenously. Whole body and selected spot images were obtained approximately 3 hours later. FINDINGS: Tracer activity increased skull activity, mandibular maxillary intensity increased activity in the knees and ankles. IMPRESSION: Abnormal whole body bone scan. Skull activities consistent with hyperostosis. The maxillary and mandibular activity is suspicious for periodontal disease. The other findings are most consistent with degenerative changes.There is no metastatic pattern. Images for comparison/correlation were bone scan of October 08, 2020, there is no significant change. Signed: Tami Owen Verified Date/Time: 04/29/2021 14:33:51 Reading Location: [address] Reading Room C METABOLIC PANEL 2021-04-29 12:07:01 Test Item Value Reference Range Interpretation Comme nts SODIUM (BEAKER) (test code 134 meq/L 136-145 L = 381) POTASSIUM (BEAKER) (test 4.5 meq/L 3.5-5.1 code = 379) CHLORIDE (BEAKER) (test 100 meq/L 98-107 code = 382) CO2 (BEAKER) (test code = 22 meq/L 22-29 355) BLOOD UREA NITROGEN 11 mg/dL 7-21 (BEAKER) (test code = 354) CREATININE (BEAKER) (test 0.82 mg/dL 0.57-1.25 code = 358) GLUCOSE RANDOM (BEAKER) 124 mg/dL 70-105 H (test code = 652) CALCIUM (BEAKER) (test code 8.9 mg/dL 8.4-10.2 = 697) EGFR (BEAKER) (test code = 95 mL/min/1.73 sq m ESTIMATED GFR IS NOT 1092) ACCURATE CRE ATININE CLEARANCE IN LA EDICTING GLOMERULAR FILT RATION RATE. ESTIMATED GFR IS NOT APPLICABLE FOR DIALYSIS PATIENTS. [employer] ID - ELOY MSpecimen slightly ictericHEPATIC FUNCTION [id number] 12:07:01 Test Item Value Reference Range Interpretation Comments TOTAL PROTEIN (BEAKER) (test code = 7.3 gm/dL 6.0-8.3 770) ALBUMIN (BEAKER) (test code = 1145) 3.3 g/dL 3.5-5.0 L BILIRUBIN TOTAL (BEAKER) (test code 1.8 mg/dL 0.2-1.2 H = 377) BILIRUBIN DIRECT (BEAKER) (test 0.8 mg/dL 0.1-0.5 H code = 706) ALKALINE PHOSPHATASE (BEAKER) (test 148 U/L 40-150 code = 346) AST (SGOT) (BEAKER) (test code = 31 U/L 5-34 353) ALT (SGPT) (BEAKER) (test code = 23 U/L 6-55 347) [employer] LEOPOLDO LYONS MSpecimen slightly ictericALPHA FETOPROTEIN (AFP), TUMOR [id number] 11:59:44 Test Item Value Reference Range Interpretation Comments ALPHA-FETOPROTEIN (BEAKER) (test 2.5 ng/mL <10.0 code = 1094) [employer] ID Andrea LYONS MPROTHROMBIN TIME/[id number] 11:32:54 Test Item Value Reference Range Interpretation Comments PROTIME (BEAKER) 15.7 seconds 11.9-14.2 H (test code = 759) INR (BEAKER) (test 1.27 See_Comment [Automat ed message] code = 370) The system [employer] generated this result transmitted ref erence range: <=5.90. The reference range was not used to int erpret this result as normal/abnormal . RECOMMENDED COUMADIN/WARFARIN INR THERAPY RANGESSTANDARD DOSE: 2.0 - 3.0 Includes: PROPHYLAXIS forvenous thrombosis, systemic embolization; TREATMENT for venous thrombosis and/or pulmonary embolus.HIGH RISK: Target INR is 2.5-3.5 for patients with mechanical heart valves.CBC W/PLT COUNT & AUTO DIFFERENTIAL 2021-04-29 11:25:26 Test Item Value Reference Range Interpretation Comments WHITE BLOOD CELL COUNT 6.3 K/ L 3.5-10.5 (BEAKER) (test code = 775) RED BLOOD CELL COUNT 4.40 M/ L 4.63-6.08 L (BEAKER) (test code = 761) HEMOGLOBIN (BEAKER) 9.8 GM/DL 13.7-17.5 L (test code = 410) HEMATOCRIT (BEAKER) 32.9 % 40.1-51.0 L (test code = 411) MEAN CORPUSCULAR 74.8 fL 79.0-92.2 L VOLUME (BEAKER) (test code = 753) MEAN CORPUSCULAR 22.3 pg 25.7-32.2 L HEMOGLOBIN (BEAKER) (test code = 751) MEAN CORPUSCULAR 29.8 GM/DL 32.3-36.5 L HEMOGLOBIN CONC (BEAKER) (test code = 752) RED CELL DISTRIBUTION 22.0 % 11.6-14.4 H WIDTH (BEAKER) (test code = 412) PLATELET COUNT 104 K/CU MM 150-450 L (BEAKER) (test code = 756) MEAN PLATELET VOLUME Unable to report due (BEAKER) (test code = to abn ormal Platelet 754) population distribution. NUCLEATED RED BLOOD 0 /100 WBC 0-0 CELLS (BEAKER) (test code = 413) NEUTROPHILS RELATIVE 57 % PERCENT (BEAKER) (test code = 429) LYMPHOCYTES RELATIVE 31 % PERCENT (BEAKER) (test code = 430) MONOCYTES RELATIVE 10 % PERCENT (BEAKER) (test code = 431) EOSINOPHILS RELATIVE 2 % PERCENT (BEAKER) (test code = 432) BASOPHILS RELATIVE 1 % PERCENT (BEAKER) (test code = 437) NEUTROPHILS ABSOLUTE 3.56 K/ L 1.78-5.38 COUNT (BEAKER) (test code = 670) LYMPHOCYTES ABSOLUTE 1.92 K/ L 1.32-3.57 COUNT (BEAKER) (test code = 414) MONOCYTES ABSOLUTE 0.60 K/ L 0.30-0.82 COUNT (BEAKER) (test code = 415) EOSINOPHILS ABSOLUTE 0.11 K/ L 0.04-0.54 COUNT (BEAKER) (test code = 416) BASOPHILS ABSOLUTE 0.05 K/ L 0.01-0.08 COUNT (BEAKER) (test code = 417) IMMATURE 0 % 0-1 GRANULOCYTES-RELATIVE PERCENT (BEAKER) (test code = 2801) TROPONIN [id number] 19:45:34 Test Item Value Reference Interpretation Comments Range TROPONIN I (test 0.004 ng/mL See_Comment [Automated code = 8122303343) message] The system which generated this result transmitted reference range : <=0.034. The reference range was not used to interpret this result as normal/abnormal . MADALYN (test code = Reference (Normal) MADALYN) Range (defined by the 99th percentile reference limit): <= 0.034 ng/mL Note: Cardiac troponin begins to rise 3-4 hours after the onset of ischemia. Repeat in 4-6 hours if the sample was drawn within 3-4 hours of the onset of the symptom and found normal. Diagnosis of myocardial injury is made with acute changes in cTn concentrations with at least one serial sample above the 99th percentile upper reference limit (URL), taken together with the patient's clinical presentation. Biotin has been reported to cause a negative bias, interpret results relative to patient's use of biotin. Lab Interpretation Normal (test code = 03060-3) [facility] WITH [id number] 19:42:16 Test Item Value Reference Range Interpretation Comments WBC (test code = See_Comment [Automated 6690-2) message] The sy stem which generated this result transmitted reference range : 4.20 - 10.70 10*3/?L. The reference range was not used to interpret this result as normal/abnormal . RBC (test code = See_Comment [Automated 789-8) message] The sy stem which generated this result transmitted reference range : 4.26 - 5.52 10*6/?L. The reference range was not used to interpret this result as normal/abnormal . HGB (test code = 9.6 g/dL 12.2-16.4 L 718-7) HCT (test code = 31.4 % 38.4-49.3 L 4544-3) MCV (test code = 70.9 fL 81.7-95.6 L 787-2) MCH (test code = 21.7 pg 26.1-32.7 L 785-6) MCHC (test code = 30.6 g/dL 31.2-35.0 L 786-4) RDW-SD (test code = 55.0 fL 38.5-51.6 H 18150-5) RDW-CV (test code = 21.7 % 12.1-15.4 H 788-0) PLT (test code = See_Comment L [Automated 777-3) message] The sy stem which generated this result transmitted reference range : 150 - 328 10*3/ ?L. The reference r mela was not used to interpret this result as normal/abnormal . MPV (test code = Not Measure d 51235-7) IPF % (test code = 3.2 % 1.2-10.7 Platelet count 0157771144) measured by fluorescence method. NRBC/100 WBC (test See_Comment [Automat ed code = 9700376199) message] The system which generated this result transmitted reference range : 0.0 - 10.0 /100 WBCs. The refer ence range was not u sed to interpret th is result as normal/abnormal . NRBC x10^3 (test code <0.01 See_Comment [Auto mated = 0492813865) message] The s ystem which generated this result transmitted reference range : 10*3/?L. The reference range was not used to interpret this result as normal/abnormal . GRAN MAT (NEUT) % 42.9 % (test code = 770-8) IMM GRAN % (test code 0.60 % = 8323994663) LYMPH % (test code = 38.0 % 736-9) MONO % (test code = 14.2 % 5905-5) EOS % (test code = 3.3 % 713-8) BASO % (test code = 1.0 % 706-2) GRAN MAT x10^3(ANC) 2.24 10*3/uL 1.99-6.95 (test code = 3809425520) IMM GRAN x10^3 (test 0.03 10*3/uL 0.00-0.06 code = 3664836892) LYMPH x10^3 (test code 1.98 10*3/uL 1.09-3.23 = 731-0) MONO x10^3 (test code 0.74 10*3/uL 0.36-1.02 = 742-7) EOS x10^3 (test code = 0.17 10*3/uL 0.06-0.53 711-2) BASO x10^3 (test code 0.05 10*3/uL 0.01-0.09 = 704-7) Lab Interpretation Abnormal (test code = 71423-6) [facility] (02891)2021-04-01 19:34:12 Test Item Value Reference Range Interpretation Comments NA (test code = 135 mmol/L 135-145 4960181832) K (test code = 3.8 mmol/L 3.5-5.0 3370316624) CL (test code = 104 mmol/L 98-108 0632671651) CO2 TOTAL (test code = 23 mmol/L 23-31 4267523475) AGAP (test code = 2-16 1039575145) BUN (test code = 9 mg/dL 7-23 9960289748) GLUCOSE (test code = 195 mg/dL 70-110 H 9463673696) CREATININE (test code = 0.65 mg/dL 0.60-1.25 5265305573) TOTAL BILI (test code = 1.3 mg/dL 0.1-1.1 H 4210365206) CALCIUM (test code = 8.2 mg/dL 8.6-10.6 L 3391567398) T PROTEIN (test code = 6.6 g/dL 6.3-8.2 4594035188) ALBUMIN (test code = 2.9 g/dL 3.5-5.0 L 7727576423) ALK PHOS (test code = 143 U/L 34-122 H 0490224699) ALTv (test code = 28 U/L 5-50 1742-6) AST(SGOT) (test code = 47 U/L 13-40 H 9375983140) eGFR (test code = mL/min/1.73m2 9788170847) MADALYN (test code = MADALYN) Association of Glomerular Filtration Rate (GFR) and Staging of Kidney Disease* + --+ --+ ------+| GFR (mL/min/1.73 m2) ?| With Kidney Damage ?| ?Without Kidney Damage+ --------+ --------+ +| ?>90 ?| ?Stage one ?| ? Normal ?+ ---+ ---+ -------+| ?60-89 ?| ?Stage two ?| ? Decreased GFR ? + --+ --+ ------+| ?30-59 ?| ?Stage three ?| ? Stage three ? + --+ --+ ------+| ?15-29 ?| ?Stage four ? | ? Stage four ?+ ---+ ---+ -------+| ?<15 (or dialysis) ? ?| ?Stage five ? | ? Stage five ?+ ---+ ---+ -------+ *Each stage assumes the associated GFR level has been in effect for at least three months. ?Stages 1 to 5, with or without kidney disease, indicate chronic kidney disease. Notes: Determination of stages one and two (with eGFR >59mL/min/1.73 m2) requires estimation of kidney damage for at least three months as defined by structural or functional abnormalities of the kidney, manifested by either:Pathological abnormalities or Markers of kidney damage (including abnormalities in the composition of the blood or urine or abnormalities in imaging tests). Lab Interpretation Abnormal (test code = 17648-5) [facility] Center[facility], [id number] 19:32:52 Test Item Value Reference Range Interpretation Comments AMMONIA (test code = 1165028009) 48 umol/L 9-33 H Lab Interpretation (test code = Abnormal 63483-0) [facility] CenterPROTHROMBIN TIME / [id number] 19:01:25 Test Item Value Reference Range Interpretation Comments PROTIME PATIENT (test See_Comment H [Auto mated message] code = 5964-2) The system [employer] generated this result transmitted ref erence range: 12.0 - 1 4.7 Seconds. The reference range was not used to int erpret this result as normal/abnormal . INR (test code = 6301-6) Nor mal INR <1.1; Warfarin Therap eutic range 2.0 to 3. 0 or 2.5 to 3.5, dep ending upon the indica tions. Lab Interpretation (test Abnormal code = 26806-3) [facility] Center[facility], EMBOLIZATION, EXTENSIVE - ARTERIAL 2021-03-12 14:48:00REFERRING : ANIL SALVADOR For TACEReason for Exam:- >hcc, [facility]cv[facility] : 1955 Sex: MFINAL REPORT Mesenteric angiogram and chemoembolization, 03/12/2021. History: Hepatic lesions. Comparison: MRI 01/21/2021, prior angiogram 11/26/2020. Modality: Fluoroscopy. Sedation: 0.5 mg Versed and 25mcg Fentanyl IV was used for moderate sedation monitored under my direction. The patient's vital signs were monitored throughout the procedure and recorded to the patient's medical record by the nurse.Total intra-service time of sedation was 60 minutes. Anesthesia: Two percent Lidocaine withoutepinephrine. Approach: Right common femoral artery.Estimated blood loss: < 5 cc. Specimen: None. boring mill set up operator: Carolyn. Chief Learning Officer: Dilip. Fluoroscopy Time: 14.1 min. Dose (Ka,r): 2189 mGy. Technique: Informed written consent was obtained.Discussion of risks, benefits, and alternatives were made with the patient. The patient expressed understanding and agreed to proceed. All elements maximal sterile barrier technique was utilized for this procedure, including utilization of sterile scrub solution for skin prep, a large sterile sheet to cover the areas of the patient that were not prepped, and hand hygiene, mask, head covering, and sterile gown for performing radiologist and scrub technologist. The skin was anesthetized with lidocaine. The right common femoral artery was accessed using a micropuncture set. A 5 Bermudian sheath was gema inga. Diagnostic mesenteric angiogram was performed to access vessel patency and exclude arterio-portal shunting. A 5 B[place]udian Anaya catheter which was used to select the celiac trunk for a DSA run. A 3 [place]udian microcatheter was advanced coaxially through the Anaya catheter for selection of the distal right hepatic artery for DSA run, which demonstrates that the residual right hepatic lesion is amenable for treatment. 25 mg of doxorubicin loaded on LC beads was administered. Followup DSA injection was performed. The microcatheter was removed. The Anaya catheter was withdrawn into the abdominal aorta for subselection of the left gastrohepatic artery which was noted to arise directly from the aorta on prior MRI. A DSA run was performed. The microcatheter was used to subselect the distal left hepatic artery that supplies the left hepatic lesion. 50 mg of doxorubicin loaded on LC beads was administered. Followup DSA injection was performed. The catheter was removed. Injection was performed throughthe right femoral sheath for a DSA run. The arteriotomy was closed and hemostasis was obtained with a Mynx closure device. Vital signs were monitored throughout the procedure by a nurse, and remained stable. The patient tolerated the procedure well and left the department in the same condition. FINDINGS: 1. Celiac injection: The splenic artery, common hepatic artery, left gastric artery, and gastroduodenal artery are patent. The splenic and portal vein are patent. 2. Proper and right hepatic artery injections: Minimal ill-defined hypervascularity is seen in the superior right hepatic lobe corresponding to the residual nodular enhancement in segment 8 on recent MRI. Post embolization, there is no further enhancement of the lesion. The lateral segment of the left hepatic lobe was noted to be nonenhancing with these injections.3. Left gastrohepatic artery injection: This branch arises directly from the aorta ad jacent to the celiac trunk. A 1.5 cm hypervascular lesion is seen in the lateral segment of the leftlobe supplied by the distal left hepatic artery corresponding to the MRI finding in segment 3. Post embolization, there is no further enhancement of lesion with continued antegrade flow in the supplying vessel.4. Right common femoral artery injection: Patent right femoral artery and normal sheath position. IMPRESSION: 1. Successful, uncomplicated mesenteric angiogram and left and right hepatic chemo-embolization, performed with conscious sedation.2. Successful hemostasis using closure device. Signed: Anthony Jaime MDReport Verified Date/Time: 03/12/2021 14:48:55 Reading Locat ion: [facility] B1 P048 Angio Body Reading Room HEPATIC FUNCTION [id number] 07:40:34 Test Item Value Reference Range Interpretation Comments TOTAL PROTEIN (BEAKER) (test code = 6.0 gm/dL 6.0-8.3 770) ALBUMIN (BEAKER) (test code = 1145) 2.7 g/dL 3.5-5.0 L BILIRUBIN TOTAL (BEAKER) (test code 2.2 mg/dL 0.2-1.2 H = 377) BILIRUBIN DIRECT (BEAKER) (test 0.9 mg/dL 0.1-0.5 H code = 706) ALKALINE PHOSPHATASE (BEAKER) (test 142 U/L 40-150 code = 346) AST (SGOT) (BEAKER) (test code = 33 U/L 5-34 353) ALT (SGPT) (BEAKER) (test code = 19 U/L 6-55 347) [employer] ID - EMERSONSpecimen slightly ictericBASIC METABOLIC [id number] 07:40:33 Test Item Value Reference Range Interpretation Comments SODIUM (BEAKER) 137 meq/L 136-145 (test code = 381) POTASSIUM (BEAKER) 4.6 meq/L 3.5-5.1 (test code = 379) CHLORIDE (BEAKER) 108 meq/L 98-107 H (test code = 382) CO2 (BEAKER) (test 23 meq/L 22-29 code = 355) BLOOD UREA NITROGEN 8 mg/dL 7-21 (BEAKER) (test code = 354) CREATININE (BEAKER) 0.73 mg/dL 0.57-1.25 (test code = 358) GLUCOSE RANDOM 121 mg/dL 70-105 H (BEAKER) (test code = 652) CALCIUM (BEAKER) 8.5 mg/dL 8.4-10.2 (test code = 697) EGFR (BEAKER) (test 108 mL/min/1.73 ESTIM ATED GFR IS code = 1092) sq m NOT ACCURATE CREATININE CLEARANCE IN PREDICTING GLOMERULAR FILTRATION RATE . ESTIMATED GFR I S NOT APPLICABLE FOR DIALYSIS PATIEN TS. [employer] ID - EMERSONSpecimen slightly ictericPROTHROMBIN [id number] 07:22:36 Test Item Value Reference Range Interpretation Comments PROTIME (BEAKER) 16.9 seconds 11.9-14.2 H (test code = 759) INR (BEAKER) (test 1.40 See_Comment [Automat ed message] code = 370) The system [employer] generated this result transmitted ref erence range: <=5.90. The reference range was not used to int erpret this result as normal/abnormal . RECOMMENDED COUMADIN/WARFARIN INR THERAPY RANGESSTANDARD DOSE: 2.0 - 3.0 Includes: PROPHYLAXIS forvenous thrombosis, systemic embolization; TREATMENT for venous thrombosis and/or pulmonary embolus.HIGH RISK: Target INR is 2.5-3.5 for patients with mechanical heart valves.CBC W/PLT COUNT & AUTO DIFFERENTIAL 2021-03-12 07:09:25 Test Item Value Reference Range Interpretation Comments WHITE BLOOD CELL COUNT 5.1 K/ L 3.5-10.5 (BEAKER) (test code = 775) RED BLOOD CELL COUNT 4.32 M/ L 4.63-6.08 L (BEAKER) (test code = 761) HEMOGLOBIN (BEAKER) 8.9 GM/DL 13.7-17.5 L (test code = 410) HEMATOCRIT (BEAKER) 30.4 % 40.1-51.0 L (test code = 411) MEAN CORPUSCULAR VOLUME 70.4 fL 79.0-92.2 L (BEAKER) (test code = 753) MEAN CORPUSCULAR 20.6 pg 25.7-32.2 L HEMOGLOBIN (BEAKER) (test code = 751) MEAN CORPUSCULAR 29.3 GM/DL 32.3-36.5 L HEMOGLOBIN CONC (BEAKER) (test code = 752) RED CELL DISTRIBUTION 20.4 % 11.6-14.4 H WIDTH (BEAKER) (test code = 412) PLATELET COUNT (BEAKER) 64 K/CU MM 150-450 L (test code = 756) MEAN PLATELET VOLUME Unable to report due (BEAKER) (test code = to abn ormal Platelet 754) population distribution. NUCLEATED RED BLOOD 0 /100 WBC 0-0 CELLS (BEAKER) (test code = 413) NEUTROPHILS RELATIVE 57 % PERCENT (BEAKER) (test code = 429) LYMPHOCYTES RELATIVE 28 % PERCENT (BEAKER) (test code = 430) MONOCYTES RELATIVE 10 % PERCENT (BEAKER) (test code = 431) EOSINOPHILS RELATIVE 3 % PERCENT (BEAKER) (test code = 432) BASOPHILS RELATIVE 1 % PERCENT (BEAKER) (test code = 437) NEUTROPHILS ABSOLUTE 2.94 K/ L 1.78-5.38 COUNT (BEAKER) (test code = 670) LYMPHOCYTES ABSOLUTE 1.44 K/ L 1.32-3.57 COUNT (BEAKER) (test code = 414) MONOCYTES ABSOLUTE 0.53 K/ L 0.30-0.82 COUNT (BEAKER) (test code = 415) EOSINOPHILS ABSOLUTE 0.17 K/ L 0.04-0.54 COUNT (BEAKER) (test code = 416) BASOPHILS ABSOLUTE 0.04 K/ L 0.01-0.08 COUNT (BEAKER) (test code = 417) IMMATURE 0 % 0-1 GRANULOCYTES-RELATIVE PERCENT (BEAKER) (test code = 2801) BASIC METABOLIC [id number] 10:56:30 Test Item Value Reference Range Interpretation Comments SODIUM (BEAKER) 138 meq/L 136-145 (test code = 381) POTASSIUM (BEAKER) 4.3 meq/L 3.5-5.1 (test code = 379) CHLORIDE (BEAKER) 107 meq/L 98-107 (test code = 382) CO2 (BEAKER) (test 24 meq/L 22-29 code = 355) BLOOD UREA NITROGEN 6 mg/dL 7-21 L (BEAKER) (test code = 354) CREATININE (BEAKER) 0.71 mg/dL 0.57-1.25 (test code = 358) GLUCOSE RANDOM 109 mg/dL 70-105 H (BEAKER) (test code = 652) CALCIUM (BEAKER) 8.3 mg/dL 8.4-10.2 L (test code = 697) EGFR (BEAKER) (test 112 mL/min/1.73 ESTIM ATED GFR IS code = 1092) sq m NOT ACCURATE CREATININE CLEARANCE IN PREDICTING GLOMERULAR FILTRATION RATE . ESTIMATED GFR I S NOT APPLICABLE FOR DIALYSIS PATIEN TS. [employer] ID Andrea REDMONDpecimen slightly ictericHEPATIC FUNCTION PANEL 2021-02-23 10:56:30 Test Item Value Reference Range Interpretation Comments TOTAL PROTEIN (BEAKER) (test code = 6.7 gm/dL 6.0-8.3 770) ALBUMIN (BEAKER) (test code = 1145) 3.0 g/dL 3.5-5.0 L BILIRUBIN TOTAL (BEAKER) (test code 2.9 mg/dL 0.2-1.2 H = 377) BILIRUBIN DIRECT (BEAKER) (test 1.1 mg/dL 0.1-0.5 H code = 706) ALKALINE PHOSPHATASE (BEAKER) (test 176 U/L 40-150 H code = 346) AST (SGOT) (BEAKER) (test code = 39 U/L 5-34 H 353) ALT (SGPT) (BEAKER) (test code = 28 U/L 6-55 347) [employer] ID - AMADOR FSpecimen slightly [id number] 10:28:14 Test Item Value Reference Range Interpretation Comments PARTIAL THROMBOPLASTIN TIME 34.9 seconds 22.5-36.0 (BEAKER) (test code = 760) PROTHROMBIN [id number] 10:27:34 Test Item Value Reference Range Interpretation Comments PROTIME (BEAKER) 17.4 seconds 11.9-14.2 H (test code = 759) INR (BEAKER) (test 1.45 See_Comment [Automat ed message] code = 370) The system [employer] generated this result transmitted ref erence range: <=5.90. The reference range was not used to int erpret this result as normal/abnormal . RECOMMENDED COUMADIN/WARFARIN INR THERAPY RANGESSTANDARD DOSE: 2.0 - 3.0 Includes: PROPHYLAXIS forvenous thrombosis, systemic embolization; TREATMENT for venous thrombosis and/or pulmonary embolus.HIGH RISK: Target INR is 2.5-3.5 for patients with mechanical heart valves.CBC W/PLT COUNT & AUTO DIFFERENTIAL 2021-02-23 10:14:45 Test Item Value Reference Range Interpretation Comments WHITE BLOOD CELL COUNT 6.3 K/ L 3.5-10.5 (BEAKER) (test code = 775) RED BLOOD CELL COUNT 4.55 M/ L 4.63-6.08 L (BEAKER) (test code = 761) HEMOGLOBIN (BEAKER) 9.5 GM/DL 13.7-17.5 L (test code = 410) HEMATOCRIT (BEAKER) 32.5 % 40.1-51.0 L (test code = 411) MEAN CORPUSCULAR VOLUME 71.4 fL 79.0-92.2 L (BEAKER) (test code = 753) MEAN CORPUSCULAR 20.9 pg 25.7-32.2 L HEMOGLOBIN (BEAKER) (test code = 751) MEAN CORPUSCULAR 29.2 GM/DL 32.3-36.5 L HEMOGLOBIN CONC (BEAKER) (test code = 752) RED CELL DISTRIBUTION 20.5 % 11.6-14.4 H WIDTH (BEAKER) (test code = 412) PLATELET COUNT (BEAKER) 92 K/CU MM 150-450 L (test code = 756) MEAN PLATELET VOLUME Unable to report due (BEAKER) (test code = to abn ormal Platelet 754) population distribution. NUCLEATED RED BLOOD 0 /100 WBC 0-0 CELLS (BEAKER) (test code = 413) NEUTROPHILS RELATIVE 52 % PERCENT (BEAKER) (test code = 429) LYMPHOCYTES RELATIVE 33 % PERCENT (BEAKER) (test code = 430) MONOCYTES RELATIVE 11 % PERCENT (BEAKER) (test code = 431) EOSINOPHILS RELATIVE 3 % PERCENT (BEAKER) (test code = 432) BASOPHILS RELATIVE 1 % PERCENT (BEAKER) (test code = 437) NEUTROPHILS ABSOLUTE 3.31 K/ L 1.78-5.38 COUNT (BEAKER) (test code = 670) LYMPHOCYTES ABSOLUTE 2.08 K/ L 1.32-3.57 COUNT (BEAKER) (test code = 414) MONOCYTES ABSOLUTE 0.70 K/ L 0.30-0.82 COUNT (BEAKER) (test code = 415) EOSINOPHILS ABSOLUTE 0.17 K/ L 0.04-0.54 COUNT (BEAKER) (test code = 416) BASOPHILS ABSOLUTE 0.06 K/ L 0.01-0.08 COUNT (BEAKER) (test code = 417) IMMATURE 0 % 0-1 GRANULOCYTES-RELATIVE PERCENT (BEAKER) (test code = 2801) MR, ABDOMEN, [id number] 12:00:00REFERRING MD: ANIL SALVADOR Include Abdominal VesselsOR[facility] : 1955 Sex: MFINAL REPORT TECHNIQUE: MRI of the abdomen WITHOUT and WITH intravenous contrast. INDICATION: Liver disease, chronic, history of HCC, monitoring. COMPARISON: Abdominal MRI dated 09/01/2020. FINDINGS: LOWER THORAX: Unremarkable. Interval resolution of previously visualized moderate right pleural effusion. LIVER: Cirrhotic hepatic morphology. Liver observations as follows:*Treatment cavity of hepatic segment VIII (series 12, image 43) with focal slightly nodular peripheral enhancement which does not washout (LR-TR equivocal).*Arterially enhancing observation of hepatic segment III (series 12, image 47) with associated washout and pseudocapsule formation measures 2.1 x 1.9 cm, previously 2.0 x 1.6 cm (LI-RADS 5).*Previously visualized area washout of hepatic segment III is not redemonstrated on this exam.*A 1.1 cm T2 hyperintensity without associated enhancement hepatic segment V (series 3, image 22) is likely reimbursement representative of a cyst, unchanged.*An 11 mm focus of arterial phase hyperenhancement in segment 7 (arterial phase image 40) without washout or pseudocapsule (LI-RADS 3), unchanged*A few scattered peripheral wedge-shaped foci of arterial enhancement are perfusionalBILIARY: Gallbladder is unremarkable. No biliary ductal dilatation or filling defect.SPLEEN: Splenom egaly which measures up to 17.2 cm in the mid clavicular line..PANCREAS: No focal masses or ductal dilatation. ADRENALS: No adrenal nodules.KIDNEYS/URETERS: No hydronephrosis or solid mass lesions. A subcentimeter right renal cyst PERITONEUM/RETROPERITONEUM: Small volume ascites.LYMPH NODES: No lymphad enopathy.VESSELS: Large paraesophageal varices. Small recanalized umbilical vein. Patent main portalvein measuring 12 mm in diameter. A small amount of peripheral nonocclusive thrombus in the dilated and tortuous splenic vein is unchanged. GI TRACT: No distention or wall thickening. Unchanged 2.4 cm duodenal diverticulum at the second segment of the duodenum. BONES AND SOFT TISSUES: 7.6 cm ascites containing umbilical hernia with a 1.6 cm neck. Bilateral gynecomastia. 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 Patent main portal vein. Signed: Stefano Mckeon MDRlinus Verified Date/Time: 01/25/2021 12:00:12 Reading Location: [address] Reading Room HEPATITIS C PCR, [id number] 16:10:00 Test Item Value Reference Range Interpretation Comments HCV RESULT COMPONENT HCV RNA not detected HCV RNA not detected (BEAKER) (test code = 2699) This test uses a Real-Time Polymerase Chain Reaction (RT-PCR) methodology and was performed using [employer] Ampliprep/KHOA TaqMan HCV test kit version 2.0 ([employer]).Reportable range for this assay is 15 - 100,000,000 IU per mL (1.18 - 8.00 Log IU/mL).CT, CHEST, WITHOUT CONTRAST 2021-01-22 15:56:00REFERRING MD: ANIL SALVADOR Mets work up [facility] : 1955 Sex: MFINAL REPORT TECHNIQUE: CT of the chest WITHOUT intravenous contrast. Dose modulation, iterative reconstruction, and/or weight-based adjustment of the mA/kV was utilized to reduce the radiation dose to as low as reasonably achievable. INDICATION: Liver cell carcinoma. COMPARISON: 10/08/2020. FINDINGS: ABSENCE OF INTRAVENOUS CONTRAST DECREASES SENSITIVITY FOR DETECTION OF FOCAL LESIONS AND VASCULAR PATHOLOGY. LINES/TUBES: None. LUNGS AND AIRWAYS: Central airways are patent. There is bibasilar atelectasis. 0.8 cm groundglass nodule within the right lower lobe. (See axial image 33). 0.3 cm nodule in the posterior right upper lobe. (Axial image 13). No new or enlarging pulmonary nodules. PLEURA: The pleural spaces are clear. HEART AND MEDIASTINUM: The visualized thyroid gland is normal. No significant mediastinal, hilar, or axillary lymphadenopathy. The heart and pericardium are within normal limits. SOFT TISSUES AND BONES: Bilateral gynecomastia. Degenerative changes in the spine. No suspicious osseous lesion. UPPER ABDOMEN: Cirrhosis with sequela portal hypertension including splenomegaly and periesophageal varices.. Evaluation for focal liver lesion is limited due to lack of intravenous contrast.. IMPRESSION:No intrathoracic metastatic disease. Stable 0.8 cm groun dglass nodule in the right lower lobe. Attention on follow-up imaging is suggested. Signed: Jeff Calzada Verified Date/Time: 01/22/2021 15:56:37 Reading Location: [facility] Diagnostic Imaging Reading Room - [place] [id number] ALPHA FETOPROTEIN (AFP), TUMOR [id number] 11:33:00 Test Item Value Reference Range Interpretation Comments ALPHA-FETOPROTEIN (BEAKER) (test 2.1 ng/mL <10.0 code = 1094) [employer] ID - ELOY MBASIC METABOLIC [id number] 11:23:00 Test Item Value Reference Range Interpretation Comments SODIUM (BEAKER) 136 meq/L 136-145 (test code = 381) POTASSIUM (BEAKER) 4.2 meq/L 3.5-5.1 (test code = 379) CHLORIDE (BEAKER) 105 meq/L 98-107 (test code = 382) CO2 (BEAKER) (test 24 meq/L 22-29 code = 355) BLOOD UREA NITROGEN 6 mg/dL 7-21 L (BEAKER) (test code = 354) CREATININE (BEAKER) 0.70 mg/dL 0.57-1.25 (test code = 358) GLUCOSE RANDOM 136 mg/dL 70-105 H (BEAKER) (test code = 652) CALCIUM (BEAKER) 8.6 mg/dL 8.4-10.2 (test code = 697) EGFR (BEAKER) (test 114 mL/min/1.73 ESTIM ATED GFR IS code = 1092) sq m NOT ACCURATE CREATININE CLEARANCE IN PREDICTING GLOMERULAR FILTRATION RATE . ESTIMATED GFR I S NOT APPLICABLE FOR DIALYSIS PATIEN TS. [employer] ID - ELOY MHEPATIC FUNCTION [id number] 11:23:00 Test Item Value Reference Range Interpretation Comments TOTAL PROTEIN (BEAKER) (test code = 6.6 gm/dL 6.0-8.3 770) ALBUMIN (BEAKER) (test code = 1145) 2.9 g/dL 3.5-5.0 L BILIRUBIN TOTAL (BEAKER) (test code 1.7 mg/dL 0.2-1.2 H = 377) BILIRUBIN DIRECT (BEAKER) (test 0.8 mg/dL 0.1-0.5 H code = 706) ALKALINE PHOSPHATASE (BEAKER) (test 166 U/L 40-150 H code = 346) AST (SGOT) (BEAKER) (test code = 36 U/L 5-34 H 353) ALT (SGPT) (BEAKER) (test code = 23 U/L 6-55 347) [employer] ID - ELOY MCBC W/PLT COUNT & AUTO [id number] 10:58:00 Test Item Value Reference Range Interpretation Comments WHITE BLOOD CELL COUNT 6.2 K/ L 3.5-10.5 (BEAKER) (test code = 775) RED BLOOD CELL COUNT 4.10 M/ L 4.63-6.08 L (BEAKER) (test code = 761) HEMOGLOBIN (BEAKER) 8.7 GM/DL 13.7-17.5 L (test code = 410) HEMATOCRIT (BEAKER) 29.5 % 40.1-51.0 L (test code = 411) MEAN CORPUSCULAR VOLUME 72.0 fL 79.0-92.2 L (BEAKER) (test code = 753) MEAN CORPUSCULAR 21.2 pg 25.7-32.2 L HEMOGLOBIN (BEAKER) (test code = 751) MEAN CORPUSCULAR 29.5 GM/DL 32.3-36.5 L HEMOGLOBIN CONC (BEAKER) (test code = 752) RED CELL DISTRIBUTION 19.7 % 11.6-14.4 H WIDTH (BEAKER) (test code = 412) PLATELET COUNT (BEAKER) 91 K/CU MM 150-450 L (test code = 756) MEAN PLATELET VOLUME Unable to report due (BEAKER) (test code = to abn ormal Platelet 754) population distribution. NUCLEATED RED BLOOD 0 /100 WBC 0-0 CELLS (BEAKER) (test code = 413) NEUTROPHILS RELATIVE 53 % PERCENT (BEAKER) (test code = 429) LYMPHOCYTES RELATIVE 32 % PERCENT (BEAKER) (test code = 430) MONOCYTES RELATIVE 11 % PERCENT (BEAKER) (test code = 431) EOSINOPHILS RELATIVE 3 % PERCENT (BEAKER) (test code = 432) BASOPHILS RELATIVE 1 % PERCENT (BEAKER) (test code = 437) NEUTROPHILS ABSOLUTE 3.27 K/ L 1.78-5.38 COUNT (BEAKER) (test code = 670) LYMPHOCYTES ABSOLUTE 1.98 K/ L 1.32-3.57 COUNT (BEAKER) (test code = 414) MONOCYTES ABSOLUTE 0.68 K/ L 0.30-0.82 COUNT (BEAKER) (test code = 415) EOSINOPHILS ABSOLUTE 0.20 K/ L 0.04-0.54 COUNT (BEAKER) (test code = 416) BASOPHILS ABSOLUTE 0.03 K/ L 0.01-0.08 COUNT (BEAKER) (test code = 417) IMMATURE 1 % 0-1 GRANULOCYTES-RELATIVE PERCENT (BEAKER) (test code = 2801) PROTHROMBIN [id number] 10:46:00 Test Item Value Reference Range Interpretation Comments PROTIME (BEAKER) 16.4 seconds 11.9-14.2 H (test code = 759) INR (BEAKER) (test 1.35 See_Comment [Automat ed message] code = 370) The system [employer] generated this result transmitted ref erence range: <=5.90. The reference range was not used to int erpret this result as normal/abnormal . RECOMMENDED COUMADIN/WARFARIN INR THERAPY RANGESSTANDARD DOSE: 2.0 - 3.0 Includes: PROPHYLAXIS forvenous thrombosis, systemic embolization; TREATMENT for venous thrombosis and/or pulmonary embolus.HIGH RISK: Target INR is 2.5-3.5 for patients with mechanical heart valves.ANG, EMBOLIZATION, EXTENSIVE - ARTERIAL 2020-11-27 08:41:00REFERRING MD: ANIL SALVADOR For TACEReason for Exam:- >[facility] : 1955 Sex: MFINAL REPORT Mesenteric angiogram and chemoembolization. History: Segment eight and segment three HCC. History of cirrhosis.. Modality: Fluoroscopy. Sedation: Versed 0.5 mg and fentanyl 50 mcg was given intravenously for conscious sedation. Vital signs were monitored throughout the procedure by a nurse, and remained stable. Physician intra-service time was 70 minutes. Anesthesia: Two percent Lidocaine without epinephrine. Approach: Right common femoral artery. Estimated blood loss: < 5 cc. Specimen: None. 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 Chief Learning Officer: None. Fluoroscopy Time: 14.2 min.Reference Air Kerma (Ka, r): 1613 mGy. The skin was anesthetized with lidocaine. The right common femoral artery was accessed using a 21-gaugeneedle and a 0.018 inch microwire. A 4 Bermudian catheter was placed over the wire and a 0.035 inch wire was placed through the catheter into the abdominal aorta. A 5 [place]udian sheath was placed over the wire. A 5 [place]udian SOS-II catheter was used to select the celiac artery for digital subtraction angiogramwhich demonstrated patent portal flow. A microcatheter was subsequently used to subselect the righthepatic artery and more distal segment eight arteries for diagnostic angiograms. After supply to thesegment eight tumor was verified chemoembolization was performed into a segment eight artery approximately 50 mg of doxorubicin loaded on LC beads was administered. Follow-up digital subtraction angiogram was performed. Left hepatic artery proximal and distal selective angiograms were performed in an a ttempt to identify the segment three lesion which was unsuccessful. The catheter was removed. Injection was performed through the right femoral sheath for a DSA run. The arteriotomy was closed and hemostasis was obtained with a Angio-Seal closure device. Vital signs were monitored throughout the procedure by a nurse, and remained stable. The patient tolerated the procedure well and left the department in the same condition. FINDINGS: 1. Celiac injection: The splenic artery, common hepatic artery, left gastric artery, and gastroduodenal artery are patent with normal branching pattern. The splenic vein is patent. 2. Right hepatic artery injection identifies a single branch supplying segment eight and segment seven.3. Selective catheterization and digital subtraction angiogram of the segment eight artery demonstrates hypervascular tumor blush within segment eight corresponding to the known MRI finding. A totalof 50 mg or two thirds of the dose of doxorubicin was delivered into the segment eight artery with preservation of the adjacent liver parenchymal vascular supply. Post embolization angiogram demonstrates stasis within the target vessels and patency of the adjacent normal parenchymal vessels.4. Left hepatic artery angiograms were performed proximally and distally however the segment three hypervascular tumor was not successfully identified.5. Right common femoral artery injection: Patent right femoral artery and normal sheath position. IMPRESSION: 1. Successful, uncomplicated mesenteric angiogram and right hepatic segment eight chemo-embolization, performed with conscious sedation.2. Left hepatic angiograms do not demonstrate hypervascular tumor blush associated with the smaller segment three lesion. Attention on follow-up imaging. If the lesion grows a follow-up angiogram can be performed with cone beam CT.3. Successful hemostasis using closure device. Signed: Xiang ColindresMDReport Verified Date/Time: 11/27/2020 08:41:43 BASIC METABOLIC [id number] 08:59:00 Test Item Value Reference Range Interpretation Comments SODIUM (BEAKER) 138 meq/L 136-145 (test code = 381) POTASSIUM (BEAKER) 4.1 meq/L 3.5-5.1 (test code = 379) CHLORIDE (BEAKER) 109 meq/L 98-107 H (test code = 382) CO2 (BEAKER) (test 23 meq/L 22-29 code = 355) BLOOD UREA NITROGEN 7 mg/dL 7-21 (BEAKER) (test code = 354) CREATININE (BEAKER) 0.72 mg/dL 0.57-1.25 (test code = 358) GLUCOSE RANDOM 104 mg/dL 70-105 (BEAKER) (test code = 652) CALCIUM (BEAKER) 8.2 mg/dL 8.4-10.2 L (test code = 697) EGFR (BEAKER) (test 110 mL/min/1.73 ESTIM ATED GFR IS code = 1092) sq m NOT ACCURATE CREATININE CLEARANCE IN PREDICTING GLOMERULAR FILTRATION RATE . ESTIMATED GFR I S NOT APPLICABLE FOR DIALYSIS PATIEN TS. [employer] ID - PIAYA LSpecimen slightly ictericHEPATIC FUNCTION [id number] 08:59:00 Test Item Value Reference Range Interpretation Comments TOTAL PROTEIN (BEAKER) (test code = 6.1 gm/dL 6.0-8.3 770) ALBUMIN (BEAKER) (test code = 1145) 2.8 g/dL 3.5-5.0 L BILIRUBIN TOTAL (BEAKER) (test code 1.8 mg/dL 0.2-1.2 H = 377) BILIRUBIN DIRECT (BEAKER) (test 0.8 mg/dL 0.1-0.5 H code = 706) ALKALINE PHOSPHATASE (BEAKER) (test 124 U/L 40-150 code = 346) AST (SGOT) (BEAKER) (test code = 36 U/L 5-34 H 353) ALT (SGPT) (BEAKER) (test code = 24 U/L 6-55 347) [employer] ID - PIAYA LSpecimen slightly ictericPROTHROMBIN [id number] 08:49:00 Test Item Value Reference Range Interpretation Comments PROTIME (BEAKER) 16.7 seconds 11.9-14.2 H (test code = 759) INR (BEAKER) (test 1.37 See_Comment [Automat ed message] code = 370) The system [employer] generated this result transmitted ref erence range: <=5.90. The reference range was not used to int erpret this result as normal/abnormal . RECOMMENDED COUMADIN/WARFARIN INR THERAPY RANGESSTANDARD DOSE: 2.0 - 3.0 Includes: PROPHYLAXIS forvenous thrombosis, systemic embolization; TREATMENT for venous thrombosis and/or pulmonary embolus.HIGH RISK: Target INR is 2.5-3.5 for patients with mechanical heart valves.CBC W/PLT COUNT & AUTO DIFFERENTIAL 2020-11-26 08:49:00 Test Item Value Reference Range Interpretation Comments WHITE BLOOD CELL COUNT (BEAKER) 4.7 K/ L 3.5-10.5 (test code = 775) RED BLOOD CELL COUNT (BEAKER) 3.82 M/ L 4.63-6.08 L (test code = 761) HEMOGLOBIN (BEAKER) (test code = 8.4 GM/DL 13.7-17.5 L 410) HEMATOCRIT (BEAKER) (test code = 28.3 % 40.1-51.0 L 411) MEAN CORPUSCULAR VOLUME (BEAKER) 74.1 fL 79.0-92.2 L (test code = 753) MEAN CORPUSCULAR HEMOGLOBIN 22.0 pg 25.7-32.2 L (BEAKER) (test code = 751) MEAN CORPUSCULAR HEMOGLOBIN CONC 29.7 GM/DL 32.3-36.5 L (BEAKER) (test code = 752) RED CELL DISTRIBUTION WIDTH 22.2 % 11.6-14.4 H (BEAKER) (test code = 412) PLATELET COUNT (BEAKER) (test code 76 K/CU MM 150-450 L = 756) MEAN PLATELET VOLUME (BEAKER) 9.6 fL 9.4-12.4 (test code = 754) NUCLEATED [...] (test code = 437) NEUTROPHILS ABSOLUTE COUNT 2.17 K/ L 1.78-5.38 (BEAKER) (test code = 670) LYMPHOCYTES ABSOLUTE COUNT 1.71 K/ L 1.32-3.57 (BEAKER) (test code = 414) MONOCYTES ABSOLUTE COUNT (BEAKER) 0.59 K/ L 0.30-0.82 (test code = 415) EOSINOPHILS ABSOLUTE COUNT 0.14 K/ L 0.04-0.54 (BEAKER) (test code = 416) BASOPHILS ABSOLUTE COUNT (BEAKER) 0.05 K/ L 0.01-0.08 (test code = 417) IMMATURE GRANULOCYTES-RELATIVE 0 % 0-1 PERCENT (BEAKER) (test code = 2801) [id number] 08:49:00 Test Item Value Reference Range Interpretation Comments PARTIAL THROMBOPLASTIN TIME 34.6 seconds 22.5-36.0 (BEAKER) (test code = 760) HEPATITIS C PCR, [id number] 19:54:00 Test Item Value Reference Range Interpretation Comments HCV RESULT COMPONENT HCV RNA not detected HCV RNA not detected (BEAKER) (test code = 2699) This test uses a Real-Time Polymerase Chain Reaction (RT-PCR) methodology and was performed using KHOA Ampliprep/KHOA TaqMan HCV test kit version 2.0 ([employer]).Reportable range for this assay is 15 - 100,000,000 IU per mL (1.18 - 8.00 Log IU/mL).BASIC METABOLIC [id number] 12:10:00 Test Item Value Reference Range Interpretation Comments SODIUM (BEAKER) 137 meq/L 136-145 (test code = 381) POTASSIUM (BEAKER) 4.3 meq/L 3.5-5.1 (test code = 379) CHLORIDE (BEAKER) 107 meq/L 98-107 (test code = 382) CO2 (BEAKER) (test 25 meq/L 22-29 code = 355) BLOOD UREA NITROGEN 8 mg/dL 7-21 (BEAKER) (test code = 354) CREATININE (BEAKER) 0.68 mg/dL 0.57-1.25 (test code = 358) GLUCOSE RANDOM 92 mg/dL 70-105 (BEAKER) (test code = 652) CALCIUM (BEAKER) 8.7 mg/dL 8.4-10.2 (test code = 697) EGFR (BEAKER) (test 118 mL/min/1.73 ESTIM ATED GFR IS code = 1092) sq m NOT ACCURATE CREATININE CLEARANCE IN PREDICTING GLOMERULAR FILTRATION RATE . ESTIMATED GFR I S NOT APPLICABLE FOR DIALYSIS PATIEN TS. [employer] ID - FSEHEPATIC FUNCTION [id number] 12:10:00 Test Item Value Reference Range Interpretation Comments TOTAL PROTEIN (BEAKER) (test code = 6.4 gm/dL 6.0-8.3 770) ALBUMIN (BEAKER) (test code = 1145) 2.8 g/dL 3.5-5.0 L BILIRUBIN TOTAL (BEAKER) (test code 1.4 mg/dL 0.2-1.2 H = 377) BILIRUBIN DIRECT (BEAKER) (test 0.7 mg/dL 0.1-0.5 H code = 706) ALKALINE PHOSPHATASE (BEAKER) (test 154 U/L 40-150 H code = 346) AST (SGOT) (BEAKER) (test code = 39 U/L 5-34 H 353) ALT (SGPT) (BEAKER) (test code = 26 U/L 6-55 347) [employer] ID - FSECBC W/PLT COUNT & AUTO [id number] 12:01:00 Test Item Value Reference Range Interpretation Comments WHITE BLOOD CELL COUNT 5.2 K/ L 3.5-10.5 (BEAKER) (test code = 775) RED BLOOD CELL COUNT 4.23 M/ L 4.63-6.08 L (BEAKER) (test code = 761) HEMOGLOBIN (BEAKER) 9.1 GM/DL 13.7-17.5 L (test code = 410) HEMATOCRIT (BEAKER) 30.5 % 40.1-51.0 L (test code = 411) MEAN CORPUSCULAR VOLUME 72.1 fL 79.0-92.2 L (BEAKER) (test code = 753) MEAN CORPUSCULAR 21.5 pg 25.7-32.2 L HEMOGLOBIN (BEAKER) (test code = 751) MEAN CORPUSCULAR 29.8 GM/DL 32.3-36.5 L HEMOGLOBIN CONC (BEAKER) (test code = 752) RED CELL DISTRIBUTION 26.3 % 11.6-14.4 H WIDTH (BEAKER) (test code = 412) PLATELET COUNT (BEAKER) 60 K/CU MM 150-450 L (test code = 756) MEAN PLATELET VOLUME Unable to report due (BEAKER) (test code = to abn ormal Platelet 754) population distribution. NUCLEATED RED BLOOD 0 /100 WBC 0-0 CELLS (BEAKER) (test code = 413) NEUTROPHILS RELATIVE 55 % PERCENT (BEAKER) (test code = 429) LYMPHOCYTES RELATIVE 29 % PERCENT (BEAKER) (test code = 430) MONOCYTES RELATIVE 13 % PERCENT (BEAKER) (test code = 431) EOSINOPHILS RELATIVE 3 % PERCENT (BEAKER) (test code = 432) BASOPHILS RELATIVE 1 % PERCENT (BEAKER) (test code = 437) NEUTROPHILS ABSOLUTE 2.86 K/ L 1.78-5.38 COUNT (BEAKER) (test code = 670) LYMPHOCYTES ABSOLUTE 1.49 K/ L 1.32-3.57 COUNT (BEAKER) (test code = 414) MONOCYTES ABSOLUTE 0.66 K/ L 0.30-0.82 COUNT (BEAKER) (test code = 415) EOSINOPHILS ABSOLUTE 0.14 K/ L 0.04-0.54 COUNT (BEAKER) (test code = 416) BASOPHILS ABSOLUTE 0.04 K/ L 0.01-0.08 COUNT (BEAKER) (test code = 417) IMMATURE 0 % 0-1 GRANULOCYTES-RELATIVE PERCENT (MADISON) (test code = 2801) PROTHROMBIN TIME/[id number] 11:53:00 Test Item Value Reference Range Interpretation Comments PROTIME (MADISON) 16.3 seconds 11.9-14.2 H (test code = 759) INR (MADISON) (test 1.35 See_Comment [Automat ed message] code = 370) The system [employer] generated this result transmitted ref erence range: <=5.90. The reference range was not used to int erpret this result as normal/abnormal . RECOMMENDED COUMADIN/WARFARIN INR THERAPY RANGESSTANDARD DOSE: 2.0 - 3.0 Includes: PROPHYLAXIS forvenous thrombosis, systemic embolization; TREATMENT for venous thrombosis and/or pulmonary embolus.HIGH RISK: Target INR is 2.5-3.5 for patients with mechanical heart valves.BONE AND/OR JOINT IMAGING, WHOLE BODY 2020-10-08 17:40:00REFERRING MD: [facility]OR [facility] : 1955 Sex: MFINAL REPORT PROCEDURE: BONE SCAN, WHOLE BODY CPT CODE: 08019 INDICATION: Hepatocellular carcinoma PROTOCOL: 21.0 mCi of Tc- 99m MDP was injected intravenously. Whole body and selected spot images were obtained approximately 4 hours later. FINDINGS: Tracer activity is focally moderately increased in the maxilla bilaterally and in the knees. There is mild, diffuse increase in activity in the shoulders, sternoclavicular joints, hips, and feet. IMPRESSION: 1. No evidence of bony neoplastic disease.2. 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 Periodontal abnormality. Images for comparison/correlation were today's chest CT in the abdominal MRI of 09/01/2020. Signed: Dre Luna MDReport Verified Date/Time: 10/08/2020 17:40:47 Reading [facility] [address] Reading Room CT, CHEST, WITHOUT [id number] 12:54:00REFERRING MD: ANIL [facility]OR [facility] : 1955 Sex: MFINAL REPORT CT of the Chest dated 10/08/2020 CLINICAL INFORMATION: liver ca Comment: Axial images of the chest were obtained from thoracic inlet to the upper abdomen without intravenous contrast. This exam was performed according to our departmental dose-optimization program, which includes automated exposure control, adjustment of the mA and/or kV according to patient size and/or use of interactive reconstruction technique. Heart is normal in size. Great vessels are unremarkable. No adenopathy in the mediastinum or perihilar region. Trachea and mainstem bronchi are patent. A small hiatal hernia is present. There is trace right pleural effusion. Subsegmental atelectasis is seen both lower lobes. The rest of the lungs are clear. No nodular, mass lesion, or airspace disease is seen. Visualized upper abdomen demonstrates cirrhotic liver. Impression: 1. No metastatic disease in the chest.2. Trace right pleural effusion and bibasilar subsegmental atelectasis.3. Hiatal hernia4. Cirrhosis. Signed: Brenda De Dios MDReport Verified Date/Time: 10/08/2020 12:54:21 Reading Location: [facility] B1 C013Y CT Body Reading Room ALPHA FETOPROTEIN (AFP), TUMOR MARKER 2020-10-08 12:52:00 Test Item Value Reference Range Interpretation Comments ALPHA-FETOPROTEIN (BEAKER) (test 2.5 ng/mL <10.0 code = 1094) [employer] ID - DEBORAH CBASIC METABOLIC [id number] 11:26:00 Test Item Value Reference Range Interpretation Comments SODIUM (BEAKER) 136 meq/L 136-145 (test code = 381) POTASSIUM [...] S NOT APPLICABLE FOR DIALYSIS PATIEN TS. [employer] ID - PIAYA LHEPATIC FUNCTION [id number] 11:26:00 Test Item Value Reference Range Interpretation Comments TOTAL PROTEIN (BEAKER) (test code = 7.0 gm/dL 6.0-8.3 770) ALBUMIN (BEAKER) (test code = 1145) 3.0 g/dL 3.5-5.0 L BILIRUBIN TOTAL (BEAKER) (test code 1.7 mg/dL 0.2-1.2 H = 377) BILIRUBIN DIRECT (BEAKER) (test 0.9 mg/dL 0.1-0.5 H code = 706) ALKALINE PHOSPHATASE (BEAKER) (test 175 U/L 40-150 H code = 346) AST (SGOT) (BEAKER) (test code = 41 U/L 5-34 H 353) ALT (SGPT) (BEAKER) (test code = 29 U/L 6-55 347) [employer] ID - PIAYA LCBC W/PLT COUNT & AUTO [id number] 11:14:00 Test Item Value Reference Range Interpretation Comments WHITE BLOOD CELL COUNT 5.5 K/ L 3.5-10.5 (BEAKER) (test code = 775) RED BLOOD CELL COUNT 4.92 M/ L 4.63-6.08 (BEAKER) (test code = 761) HEMOGLOBIN (BEAKER) 9.9 GM/DL 13.7-17.5 L (test code = 410) HEMATOCRIT (BEAKER) 34.2 % 40.1-51.0 L (test code = 411) MEAN CORPUSCULAR VOLUME 69.5 fL 79.0-92.2 L (BEAKER) (test code = 753) MEAN CORPUSCULAR 20.1 pg 25.7-32.2 L HEMOGLOBIN (BEAKER) (test code = 751) MEAN CORPUSCULAR 28.9 GM/DL 32.3-36.5 L HEMOGLOBIN CONC (BEAKER) (test code = 752) RED CELL DISTRIBUTION 25.5 % 11.6-14.4 H WIDTH (BEAKER) (test code = 412) PLATELET COUNT (BEAKER) 72 K/CU MM 150-450 L (test code = 756) MEAN PLATELET VOLUME Unable to report due (BEAKER) (test code = to abn ormal Platelet 754) population distribution. NUCLEATED RED BLOOD 0 /100 WBC 0-0 CELLS (BEAKER) (test code = 413) NEUTROPHILS RELATIVE 48 % PERCENT (BEAKER) (test code = 429) LYMPHOCYTES RELATIVE 35 % PERCENT (BEAKER) (test code = 430) MONOCYTES RELATIVE 12 % PERCENT (BEAKER) (test code = 431) EOSINOPHILS RELATIVE 4 % PERCENT (BEAKER) (test code = 432) BASOPHILS RELATIVE 1 % PERCENT (BEAKER) (test code = 437) NEUTROPHILS ABSOLUTE 2.65 K/ L 1.78-5.38 COUNT (BEAKER) (test code = 670) LYMPHOCYTES ABSOLUTE 1.92 K/ L 1.32-3.57 COUNT (BEAKER) (test code = 414) MONOCYTES ABSOLUTE 0.67 K/ L 0.30-0.82 COUNT (BEAKER) (test code = 415) EOSINOPHILS ABSOLUTE 0.20 K/ L 0.04-0.54 COUNT (BEAKER) (test code = 416) BASOPHILS ABSOLUTE 0.06 K/ L 0.01-0.08 COUNT (BEAKER) (test code = 417) IMMATURE 0 % 0-1 GRANULOCYTES-RELATIVE PERCENT (BEAKER) (test code = 2801) PROTHROMBIN TIME/[id number] 11:12:00 Test Item Value Reference Range Interpretation Comments PROTIME (BEAKER) 16.7 seconds 11.9-14.2 H (test code = 759) INR (BEAKER) (test 1.39 See_Comment [Automat ed message] code = 370) The system [employer] generated this result transmitted ref erence range: <=5.90. The reference range was not used to int erpret this result as normal/abnormal . Effective 10/24/2018: PT Reference Range ChangeNew: 11.9-14.2 Previous: 11.7- 14.7RECOMMENDED COUMADIN/WARFARIN INR THERAPY RANGESSTANDARD DOSE: 2.0-3.0 Includes: PROPHYLAXIS for venous thrombosis, systemic embolization; TREATMENT for venous thrombosis and/or pulmonary embolus.HIGH RISK: Target INR is2.5-3.5 for patients wiht mechanical heart valves.MR, ABDOMEN, [id number] 16:24:00 REFERRING MD: ANIL SALVADOR Include Abdominal VesselsUnlisted Reason for Exam - Click Yes and EnterReason Below->YesUnlisted Reason for Exam->awaiting organ transplant, cirrhosis, screening forcancer [facility] Schwartz : 1955 Sex: MFINAL REPORT TECHNIQUE: MRI of the abdomen WITHOUT and WITH intravenous contrast. INDICATION: Unlisted Reason for Examawaiting organ transplant, cirrhosis, screening for cancer. COMPARISON: MRI from 03/13/2020. FINDINGS: LOWER THORAX: Moderate sized right pleural effusion.LIVER: Nodular, cirrhotic liver. Observations as follow:*An arterially enhancing observation in segment VIII measures 2.3 cm on axial arterial phase image 27, previously 1.7 cm. This washes out on 60 second phase imaging. LI-RADS 5, OPTN 5B*An arterially enhancing observation in segment III measures 1.4 cm on axial arterial phase image 31, previously 0.8 cm. There is washout and pseudocapsule formation. LI- RADS 5, OPTN 5A*An area of washout in segment III measures 1.7 cm on axial delayed phase image 32. No corresponding arterial phase hyperenhancement. LI- RADS 3 A few additional, scattered, wedge-shaped areas of arterial phase hyperenhancement the periphery the liver are likely perfusional. A nonenhancing structure in segment V measures 0.9 cm and is most consistent with a cyst. BILIARY: The gallbladder wall is mildly thickened, likely related to the liver disease. No biliary ductal dilatation or filling defect.SPLEEN: 16.1 cm splenomegaly.PANCREAS: No focal masses or ductal dilatation. ADRENALS: No adrenal nodules.KIDNEYS/URETERS: No hydronephrosis or solid mass lesions. PERITONEUM/RETROPERITONEUM: Small volume ascites. An umbilical hernia contains ascites.LYMPH NODES: No lymphadenopathy.VESSELS: Small esophageal and moderate sized paraesophageal varices. GI TRACT: No distention or wall thickening. 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 BONES AND SOFT TISSUES: Bilateral gynecomastia. IMPRESSION: 1.Two LI-RADS 5/OPTN 5 observations in the liver measure 2.3 cm in segment VIIIand 1.4 cm in segment III. 2.Cirrhosis with sequelae of portal hypertension including ascites, splenomegaly, and esophageal varices. 3.Moderate sized right pleural effusion Signed: Tawanda Alvarez MDReport V erified Date/Time: 09/02/2020 16:24:23 ALPHA FETOPROTEIN (AFP), TUMOR MARKER 2020-09-01 16:57:00 Test Item Value Reference Range Interpretation Comments ALPHA-FETOPROTEIN (BEAKER) (test code < ng/mL <10.0 = 1094) [employer] ID - BSBASIC METABOLIC [id number] 14:50:00 Test Item Value Reference Range Interpretation [...] S NOT APPLICABLE FOR DIALYSIS PATIEN TS. [employer] ID - EDASISpecimen slightly ictericHEPATIC FUNCTION [id number] 14:50:00 Test Item Value Reference Range Interpretation [...] (test code = 26 U/L 6-55 347) [employer] ID - EDASISpecimen slightly ictericCBC W/PLT COUNT & AUTO [id number] 14:45:00 Test Item Value Reference Range Interpretation [...] GRANULOCYTES-RELATIVE PERCENT (BEAKER) (test code = 2801) PROTHROMBIN TIME/[id number] 14:40:00 Test Item Value Reference Range Interpretation Comments PROTIME (MADISON) 17.6 seconds 11.9-14.2 H (test code = 759) INR (MADISON) (test 1.49 See_Comment [Automat ed message] code = 370) The system [employer] generated this result transmitted ref erence range: <=5.90. The reference range was not used to int erpret this result as normal/abnormal . Effective 10/24/2018: PT Reference Range ChangeNew: 11.9-14.2 Previous: 11.7- 14.7RECOMMENDED COUMADIN/WARFARIN INR THERAPY RANGESSTANDARD DOSE: 2.0-3.0 Includes: PROPHYLAXIS for venous thrombosis, systemic embolization; TREATMENT for venous thrombosis and/or pulmonary embolus.HIGH RISK: Target INR is2.5-3.5 for patients wiht mechanical heart valves.Chest 1 [id number] 14:03:55 Small right pleural effusion with right basilar pneumonia and/oratelectasis. RL: [phone] Patient name: KALEN FLORESPRESLEY: 1955 64 years EXAMINATION: XR CHEST 1 VW Ordering Physician: WENDY BULL CLINICAL HISTORY:Shortness of breath COMPARISON:None TECHNIQUE:Single frontal view of the chest was performed. The technique of thisexamination is adequate. FINDINGS:Normal lung volumes. Airspace opacity seen at the right lung base. Suspectsmall right effusion. No pneumothorax. Heart size is normal without edema.Normal aortic contours. No acute osseous abnormality. [facility], Radiant Results Inft User - 08/19/2020 9:04 AM CDTPatient name: KALEN RICHShruthi: 1955 64 years EXAMINATION: XR CHEST 1 VWOrdering Physician: WENDY BULL CLINICAL HISTORY:Shortness of breathCOMPARISON:NoneTECHNIQUE:Single frontal view of the chest was performed. The technique of thisexamination is adequate.FINDINGS:Normal lung volumes. Airspace opacity seen atthe right lung base. Suspectsmall right effusion. No pneumothorax. Heart size is normal without edema.Normal aortic contours. No acute osseous abnormality.IMPRESSIONSmall right pleural effusion with right basilar pneumonia and/oratelectasis.RL: [phone] Electronically signed by Daquan Gibson at 19:03 [facility] 2020-08-19 13:32:55 Test Item Value Reference Range Interpretation Comments TROPONIN I (test <0.012 See_Comment [Automated code = 9875266085) message] The system which generated this result transmitted reference range : <=0.034 ng/mL. The reference range was not used to interpr et this result as normal/abnormal . MADALYN (test code = Equal or Less than MADALYN) 0.034 ng/ml---Normal ?Note: Cardiac troponin begins to rise 3-4 hours after the onset of ischemia. Repeat in 4-6 hours if the sample was drawn within 3-4 hours of the onset of the symptom and found normal. Between 0.035 and 0.120 ng/mL--- Borderline. Questionable myocardial injury or necrosis ? ?Note: Serial measurement may be necessary to confirm or exclude the diagnosis of myocardial injury or necrosis; Clinical correlation (symptoms, EKGs, imaging studies, and others) required; Repeat in 4-6 hours if clinically indicated. ? Equal or Higher than 0.121 ng/mL---Abnormal. Myocardial Injury or Necrosis Likely ? Biotin has been reported to cause a negative bias, interpret results relative to patient's use of biotin. ? Lab Interpretation Normal (test code = 05880-8) [facility] [id number] 13:29:55 Test Item Value Reference Range Interpretation Comments NT-proBNP (test code 119 pg/mL See_Comment [Autom ated = 3846524346) message] The system which generated this result transmitted reference range : <=125. The reference range was not used to interpret this result as normal/abnormal . MADALYN (test code = MADALYN) Biotin has been reported to cause a negative bias, interpret results relative to patient's use of biotin. Lab Interpretation Normal (test code = 76362-3) [facility] CenterCOVID-19 (ID NOW RAPID TESTING)2020-08-19 13:23:14 Test Item Value Reference Range Interpretation Comments SARS-CoV-2 Rapid ID NOW Not Detected Not Detected (test code = 77140-5) MADALYN (test code = MADALYN) ID NOW COVID-19 Assay is an isothermal nucleic acid amplification test intended for the qualitative detection of nucleic acid from SARS-CoV-2 viral RNA in nasopharyngeal (LAUNDRY MACHINE OPERATOR) specimens. It is used under Emergency Use Authorization (EUA) by FDA. The limit of detection (LOD) of the assay is 125 Genome Equivalents/mL. A positive result is indicative of the presence of SARS-CoV-2 RNA. ?Clinical correlation with patient history and other diagnostic information is necessary to determine patient infection status. A negative (Not Detected) result does not preclude SARS-CoV-2 infection. In patients with clinical symptoms and other tests that are consistent with SARS-CoV-2 infection, negative results should be treated as presumptive negative and a new specimen should be tested with alternative PCR molecular test. Invalid: Please collect a new specimen for repeat patient testing if clinically indicated. Lab Interpretation Normal (test code = 42162-6) [facility] Metabolic Panel (NA, K, CL, CO2, GLUCOSE, BUN, CREATININE, CA)2020-08-19 13:21:13 Test Item Value Reference Range Interpretation Comments NA (test code = 135 mmol/L 135-145 1581612959) K (test code = 4.1 mmol/L 3.5-5.0 5583129140) CL (test code = 106 mmol/L 98-108 7975403210) CO2 TOTAL (test code = 24 mmol/L 23-31 0546273322) AGAP (test code = 2-16 6579656471) BUN (test code = 7 mg/dL 7-23 6122230209) GLUCOSE (test code = 216 mg/dL 70-110 H 6915812055) CREATININE (test code = 0.59 mg/dL 0.60-1.25 L 4775554553) CALCIUM (test code = 8.2 mg/dL 8.6-10.6 L 7110508455) eGFR Calculation mL/min/1.73m2 (Non-) (test code = 2220280647) eGFR Calculation mL/min/1.73m2 () (test code = 2081355377) MADALYN (test code = MADALYN) Association of Glomerular Filtration Rate (GFR) and Staging of Kidney Disease* + --+ --+ ------+| GFR (mL/min/1.73 m2) ?| With Kidney Damage ?| ?Without Kidney Damage+ --------+ --------+ +| ?>90 ?| ?Stage one ?| ? Normal ?+ ---+ ---+ -------+| ?60-89 ?| ?Stage two ?| ? Decreased GFR ? + --+ --+ ------+| ?30-59 ?| ?Stage three ?| ? Stage three ? + --+ --+ ------+| ?15-29 ?| ?Stage four ? | ? Stage four ?+ ---+ ---+ -------+| ?<15 (or dialysis) ? ?| ?Stage five ? | ? Stage five ?+ ---+ ---+ -------+ *Each stage assumes the associated GFR level has been in effect for at least three months. ?Stages 1 to 5, with or without kidney disease, indicate chronic kidney disease. Notes: Determination of stages one and two (with eGFR >59mL/min/1.73 m2) requires estimation of kidney damage for at least three months as defined by structural or functional abnormalities of the kidney, manifested by either:Pathological abnormalities or Markers of kidney damage (including abnormalities in the composition of the blood or urine or abnormalities in imaging tests). Lab Interpretation Abnormal (test code = 78544-9) [facility] Center[facility] (ALB, T.PRO, BILI T, BU/BC, ALT, AST, ALK PHOS)2020-08-19 13:21:12 Test Item Value Reference Range Interpretation Comments TOTAL BILI (test code = 7776917316) 1.9 mg/dL 0.1-1.1 H BILI UNCON (test code = 5940429388) 1.7 mg/dL 0.1-1.1 H BILI CONJ (test code = 2592912579) 0.0 mg/dL 0.0-0.3 T PROTEIN (test code = 4029914898) 6.3 g/dL 6.3-8.2 ALBUMIN (test code = 8453656644) 3.0 g/dL 3.5-5.0 L ALK PHOS (test code = 6619493265) 162 U/L 34-122 H ALTv (test code = 1742-6) 25 U/L 5-50 AST(SGOT) (test code = 7800291744) 41 U/L 13-40 H Lab Interpretation (test code = Abnormal 08706-6) [facility] CenterLipase [id number] 13:21:12 Test Item Value Reference Range Interpretation Comments LIPASE (test code = 4226527184) 145 U/L 0-220 Lab Interpretation (test code = Normal 58994-1) [facility] CenterCBC with [id number] 13:17:56 Test Item Value Reference Range Interpretation Comments WBC (test code = See_Comment [Automated 6690-2) message] The sy stem which generated this result transmitted reference range : 4.20 - 10.70 10*3/?L. The reference range was not used to interpret this result as normal/abnormal . RBC (test code = See_Comment L [Automated 789-8) message] The sy stem which generated this result transmitted reference range : 4.26 - 5.52 10*6/?L. The reference range was not used to interpret this result as normal/abnormal . HGB (test code = 7.7 g/dL 12.2-16.4 L 718-7) HCT (test code = 27.0 % 38.4-49.3 L 4544-3) MCV (test code = 64.6 fL 81.7-95.6 L 787-2) MCH (test code = 18.4 pg 26.1-32.7 L 785-6) MCHC (test code = 28.5 g/dL 31.2-35.0 L 786-4) RDW-SD (test code = 48.3 fL 38.5-51.6 35541-6) RDW-CV (test code = 21.4 % 12.1-15.4 H 788-0) PLT (test code = See_Comment L [Automated 777-3) message] The sy stem which generated this result transmitted reference range : 150 - 328 10*3/ ?L. The reference r mela was not used to interpret this result as normal/abnormal . MPV (test code = Not Measure d 13251-1) IPF % (test code = 2.3 % 1.2-10.7 Platelet count 1465982815) measured by fluorescence method. NRBC/100 WBC (test See_Comment [Automat ed code = 7155406784) message] The system which generated this result transmitted reference range : 0.0 - 10.0 /100 WBCs. The refer ence range was not u sed to interpret th is result as normal/abnormal . NRBC x10^3 (test code <0.01 See_Comment [Auto mated = 9280914752) message] The s ystem which generated this result transmitted reference range : 10*3/?L. The reference range was not used to interpret this result as normal/abnormal . GRAN MAT (NEUT) % 56.4 % (test code = 770-8) IMM GRAN % (test code 0.20 % = 0949455212) LYMPH % (test code = 27.6 % 736-9) MONO % (test code = 10.7 % 5905-5) EOS % (test code = 3.7 % 713-8) BASO % (test code = 1.4 % 706-2) GRAN MAT x10^3(ANC) 2.47 10*3/uL 1.99-6.95 (test code = 7973994325) IMM GRAN x10^3 (test <0.03 0.00-0.06 code = 5603306903) LYMPH x10^3 (test code 1.21 10*3/uL 1.09-3.23 = 731-0) MONO x10^3 (test code 0.47 10*3/uL 0.36-1.02 = 742-7) EOS x10^3 (test code = 0.16 10*3/uL 0.06-0.53 711-2) BASO x10^3 (test code 0.06 10*3/uL 0.01-0.09 = 704-7) Lab Interpretation Abnormal (test code = 83895-2) [facility] CenterPROTHROMBIN TIME / [id number] 01:49:00 Test Item Value Reference Range Interpretation Comments PROTIME PATIENT (test See_Comment H [Auto mated message] code = 5964-2) The system ich generated this result transmitted ref erence range: 12.0 - 1 4.7 Seconds. The reference range was not used to int erpret this result as normal/abnormal . INR (test code = 6301-6) Nor mal INR <1.1; Warfarin Therap eutic range 2.0 to 3. 0 or 2.5 to 3.5, dep ending upon the indica tions. Lab Interpretation (test Abnormal code = 74096-0) [facility] CenterMAGNESIUM2021-01-29 01:27:00 Test Item Value Reference Range Interpretation Comments MAGNESIUM (test code = 9684879076) 1.6 mg/dL 1.7-2.4 L Lab Interpretation (test code = Abnormal 42150-1) [facility] CenterAMMONIA, [id number] 01:26:00 Test Item Value Reference Range Interpretation Comments AMMONIA (test code = 0949222331) 37 umol/L 9-33 H Lab Interpretation (test code = Abnormal 11069-6) [facility] CenterUrinalysis2021-01-29 00:30:00 Test Item Value Reference Range Interpretation Comments APPEARANCE (test code = Clear Clear 4886112850) COLOR (test code = Addison Yellow A 8220605299) PH (test code = 4.8-8.0 4959435894) SP GRAVITY (test code = 1.003-1.030 9591030496) GLU U QUAL (test code = Normal Normal 3405265321) BLOOD (test code = Negative Negative INTERFERE NCE FROM [id number]) ASCORBIC ACID M AY CAUSE FALSE NEG ATIVE RESULT KETONES (test code = Negative Negative 6332119452) PROTEIN (test code = Negative Negative 2887-8) UROBILIN (test code = 4.0 mg/dL Normal A 0980793098) BILIRUBIN (test code = Negative Negative 4320871338) NITRITE (test code = Negative Negative 4174906915) LEUK KIKI (test code = Negative Negative 0200799195) RBC/HPF (test code = See_Comment [Autom ated message] 9012064126) The system [employer] generated this result transmitted ref erence range: 0 - 3 HP F. The reference range was not used to int erpret this result as normal/abnormal . WBC/HPF (test code = See_Comment [Autom ated message] 1201466661) The system [employer] generated this result transmitted ref erence range: 0 - 5 HP F. The reference range was not used to int erpret this result as normal/abnormal . BACTERIA (test code = Negative Negative 8595821490) MUCOUS (test code = Slight Negative LPF A 1487604019) SQ EPITH (test code = HPF 0090342820) CA OXALATE (test code = See_Comment [Au tomated message] 1098234004) The system [employer] generated this result transmitted ref erence range: <=1 HPF. The reference range was not used to int erpret this result as normal/abnormal . TRANS EPI (test code = <1 See_Comment [Aut omated message] 5129742880) The system [employer] generated this result transmitted ref erence range: <=1 HPF. The reference range was not used to int erpret this result as normal/abnormal . Lab Interpretation Abnormal (test code = 15087-3) [facility] 1 [id number] 00:22:38Elevation of the right hemidiaphragm of moderate patchy opacities in theright lung base which may bedue to atelectasis or pneumonia. RL: 4131 End of report CHEST SINGLE VIEW HISTORY: SOB ORDERING PHYSICIAN: SUSAN SAN TECHNIQUE: Frontal view of chest COMPARISON: None available. FINDINGS: The cardiac silhouette is mildly enlarged There is elevation of the right hemidiaphragm. There are moderate patchyopacities in the right lung base. No large pleural effusion. Nopneumothorax. No acute osseous abnormality. [facility], Radiant Results Inft User - 06/25/2020 6:23 PM CSTCHEST SINGLE VIEWHISTORY: SOB ORDERING PHYSICIAN: CAROLINA ARAYAVERTECHNIQUE: Frontal view of chestCOMPARISON: None available.FINDINGS:The cardiac silhouette is mildly enlargedThere is elevation of the right hemidiaphragm. There are moderate patchyopacities in the right lung base. No large pleural effusion. Nopneumothorax.No acute osseous abnormality. IMPRESSIONElevationof the right hemidiaphragm of moderate patchy opacities in theright lung base which may be due to atelectasis or pneumonia.RL: 4131 End of report [id number] 00:18:00 Test Item Value Reference Range Interpretation Comments TROPONIN I (test <0.012 See_Comment [Automated code = 3649050277) message] The system which generated this result transmitted reference range : <=0.034 ng/mL. The reference range was not used to interpr et this result as normal/abnormal . MADALYN (test code = Equal or Less than MADALYN) 0.034 ng/ml---Normal ?Note: Cardiac troponin begins to rise 3-4 hours after the onset of ischemia. Repeat in 4-6 hours if the sample was drawn within 3-4 hours of the onset of the symptom and found normal. Between 0.035 and 0.120 ng/mL--- Borderline. Questionable myocardial injury or necrosis ? ?Note: Serial measurement may be necessary to confirm or exclude the diagnosis of myocardial injury or necrosis; Clinical correlation (symptoms, EKGs, imaging studies, and others) required; Repeat in 4-6 hours if clinically indicated. ? Equal or Higher than 0.121 ng/mL---Abnormal. Myocardial Injury or Necrosis Likely ? Biotin has been reported to cause a negative bias, interpret results relative to patient's use of biotin. ? Lab Interpretation Normal (test code = 72235-2) [id number] 00:15:00 Test Item Value Reference Range Interpretation Comments NT-proBNP (test code 175 pg/mL See_Comment H [Autom ated = 1368182509) message] The system which generated this result transmitted reference range : <=125. The reference range was not used to interpret this result as normal/abnormal . MADALYN (test code = MADALYN) Biotin has been reported to cause a negative bias, interpret results relative to patient's use of biotin. Lab Interpretation Abnormal (test code = 08046-8) [facility]OVID[facility] (ID NOW RAPID TESTING)2020-06-26 00:08:00 Test Item Value Reference Range Interpretation Comments SARS-CoV-2 Rapid ID NOW Not Detected Not Detected (test code = 75356-7) MADALYN (test code = MADALYN) ID NOW COVID-19 Assay is an isothermal nucleic acid amplification test intended for the qualitative detection of nucleic acid from SARS-CoV-2 viral RNA in nasopharyngeal (LAUNDRY MACHINE OPERATOR) specimens. It is used under Emergency Use Authorization (EUA) by FDA. The limit of detection (LOD) of the assay is 125 Genome Equivalents/mL. A positive result is indicative of the presence of SARS-CoV-2 RNA. ?Clinical correlation with patient history and other diagnostic information is necessary to determine patient infection status. A negative (Not Detected) result does not preclude SARS-CoV-2 infection. In patients with clinical symptoms and other tests that are consistent with SARS-CoV-2 infection, negative results should be treated as presumptive negative and a new specimen should be tested with alternative PCR molecular test. Invalid: Please collect a new specimen for repeat patient testing if clinically indicated. Lab Interpretation Normal (test code = 28742-0) [facility] Metabolic Panel (NA, K, CL, CO2, GLUCOSE, BUN, CREATININE, CA)2020-06-26 00:06:00 Test Item Value Reference Range Interpretation Comments NA (test code = 137 mmol/L 135-145 0241998061) K (test code = 3.4 mmol/L 3.5-5 L 0602149838) CL (test code = 104 mmol/L 98-108 2899756860) CO2 TOTAL (test code = 26 mmol/L 23-31 6597991451) AGAP (test code = 2-16 4379239930) BUN (test code = 6 mg/dL 7-23 L 9337596893) GLUCOSE (test code = 118 mg/dL 70-110 H 1606072583) CREATININE (test code = 0.60 mg/dL 0.6-1.25 9527247944) CALCIUM (test code = 7.9 mg/dL 8.6-10.6 L 6600377492) eGFR Calculation mL/min/1.73m2 (Non-) (test code = 9119555030) eGFR Calculation mL/min/1.73m2 () (test code = 8688111693) MADALYN (test code = MADALYN) Association of Glomerular Filtration Rate (GFR) and Staging of Kidney Disease* + --+ --+ ------+| GFR (mL/min/1.73 m2) ?| With Kidney Damage ?| ?Without Kidney Damage+ --------+ --------+ +| ?>90 ?| ?Stage one ?| ? Normal ?+ ---+ ---+ -------+| ?60-89 ?| ?Stage two ?| ? Decreased GFR ? + --+ --+ ------+| ?30-59 ?| ?Stage three ?| ? Stage three ? + --+ --+ ------+| ?15-29 ?| ?Stage four ? | ? Stage four ?+ ---+ ---+ -------+| ?<15 (or dialysis) ? ?| ?Stage five ? | ? Stage five ?+ ---+ ---+ -------+ *Each stage assumes the associated GFR level has been in effect for at least three months. ?Stages 1 to 5, with or without kidney disease, indicate chronic kidney disease. Notes: Determination of stages one and two (with eGFR >59mL/min/1.73 m2) requires estimation of kidney damage for at least three months as defined by structural or functional abnormalities of the kidney, manifested by either:Pathological abnormalities or Markers of kidney damage (including abnormalities in the composition of the blood or urine or abnormalities in imaging tests). Lab Interpretation Abnormal (test code = 80029-2) [facility] (ALB, T.PRO, BILI T, BU/BC, ALT, AST, ALK PHOS)2020-06-26 00:06:00 Test Item Value Reference Range Interpretation Comments TOTAL BILI (test code = 3900042580) 2.2 mg/dL 0.1-1.1 H BILI UNCON (test code = 8241320865) 1.8 mg/dL 0.1-1.1 H BILI CONJ (test code = 4823090160) 0.0 mg/dL 0-0.3 T PROTEIN (test code = 4067876691) 6.8 g/dL 6.3-8.2 ALBUMIN (test code = 1684389279) 3.1 g/dL 3.5-5 L ALK PHOS (test code = 2479655492) 162 U/L 34-122 H ALTv (test code = 1742-6) 22 U/L 5-50 AST(SGOT) (test code = 9901754591) 42 U/L 13-40 H Lab Interpretation (test code = Abnormal 68434-4) [facility] CenterLipase [id number] 00:06:00 Test Item Value Reference Range Interpretation Comments LIPASE (test code = 5228264352) 156 U/L 0-220 Lab Interpretation (test code = Normal 44386-4) [facility] CenterCBC with [id number] 00:00:00 Test Item Value Reference Range Interpretation Comments WBC (test code = See_Comment [Automated 6690-2) message] The sy stem which generated this result transmitted reference range : 4.20 - 10.70 10*3/?L. The reference range was not used to interpret this result as normal/abnormal . RBC (test code = See_Comment L [Automated 789-8) message] The sy stem which generated this result transmitted reference range : 4.26 - 5.52 10*6/?L. The reference range was not used to interpret this result as normal/abnormal . HGB (test code = 7.8 g/dL 12.2-16.4 L 718-7) HCT (test code = 26.7 % 38.4-49.3 L 4544-3) MCV (test code = 65.6 fL 81.7-95.6 L 787-2) MCH (test code = 19.2 pg 26.1-32.7 L 785-6) MCHC (test code = 29.2 g/dL 31.2-35 L 786-4) RDW-SD (test code = 49.4 fL 38.5-51.6 11110-1) RDW-CV (test code = 21.6 % 12.1-15.4 H 788-0) PLT (test code = See_Comment L [Automated 777-3) message] The sy stem which generated this result transmitted reference range : 150 - 328 10*3/ ?L. The reference r mela was not used to interpret this result as normal/abnormal . MPV (test code = Not Measure d 82676-8) IPF % (test code = 1.9 % 1.2-10.7 Platelet count 7708287364) measured by fluorescence method. NRBC/100 WBC (test See_Comment [Automat ed code = 2637803444) message] The system which generated this result transmitted reference range : 0.0 - 10.0 /100 WBCs. The refer ence range was not u sed to interpret th is result as normal/abnormal . NRBC x10^3 (test code <0.01 See_Comment [Auto mated = 4746406100) message] The s ystem which generated this result transmitted reference range : 10*3/?L. The reference range was not used to interpret this result as normal/abnormal . GRAN MAT (NEUT) % 44.8 % (test code = 770-8) IMM GRAN % (test code 0.20 % = 6955494311) LYMPH % (test code = 37.2 % 736-9) MONO % (test code = 13.6 % 5905-5) EOS % (test code = 2.7 % 713-8) BASO % (test code = 1.5 % 706-2) GRAN MAT x10^3(ANC) 2.47 10*3/uL 1.99-6.95 (test code = 8687743027) IMM GRAN x10^3 (test <0.03 0-0.06 code = 8682733800) LYMPH x10^3 (test code 2.05 10*3/uL 1.09-3.23 = 731-0) MONO x10^3 (test code 0.75 10*3/uL 0.36-1.02 = 742-7) EOS x10^3 (test code = 0.15 10*3/uL 0.06-0.53 711-2) BASO x10^3 (test code 0.08 10*3/uL 0.01-0.09 = 704-7) Lab Interpretation Abnormal (test code = 02488-8) [facility] CenterMISCELLANEOUS LAB [id number] 12:02:00 Test Item Value Reference Range Interpretation Comments SCAN RESULT (test code = 7214703) SARS-COV2/RT-PCR ([facility])2020-03-13 20:20:00 Test Item Value Reference Range Interpretation Comments SARS-COV2/RT-PCR (test Negative Not Detected, Negative, code = 3068797) See external report for linked test SARS-COV-[address] [facility] KAT (test code = 8489498) Negative result for this test determines that [...] 564(g) of the Act.Fact Sheet for Healthcare Providers:https://www.[employer]isade Systemsidel.com/sites/default/files/product/documents/Fact_Shee e_HD_Cfslmfoaq_Skbx_NQNA-OiG-3.pdfFact Sheet for Healthcare Patients:https://www.[employer] Systemsidel.com/sites/default/files/product/ documents/Mplx_Ecwca_Bqwutbkz_Kevh_YLRX-NgU-5.pdfPerforming Laboratory:[facility].[place], [place] [address]AR, ABDOMEN, WITH 2020-03-13 14:43:00REFERRING : ANIL SALVADOR Include Abdominal VesselsUnlisted Reason for Exam - Click Yes and EnterReason Below- >YesUnlisted Reason for Exam->listed for liver transplant, screening for malignancyS[facility] : 1955 Sex: [...] hepatic mass.3. Trace ascites. Signed: Brenda De Dioseport Verified Date/Time: 03/13/2020 14:43:24 ALPHA FETOPROTEIN (AFP), TUMOR [id number] 13:25:00 Test Item Value Reference Range Interpretation Comments ALPHA-FETOPROTEIN (BEAKER) (test code < ng/mL <10.0 = 1094) [employer] ID - AAHAMIDCOMPREHENSIVE METABOLIC [id number] 12:54:00 Test Item Value Reference Range Interpretation [...] S NOT APPLICABLE FOR DIALYSIS PATIEN TS. [employer] ID - AAHAMIDRAD, BONE DENSITY [id number] 12:46:00REFJENISE GOMEZ: ANIL SALVADOR Reason for Exam:->on liver transplant waiting list [facility] : 1955 Sex: MFINAL REPORT Bone density study, 03/13/2020 Clinical History: Screening Bone mineral density measurementLumbar spine1.110 gm/ve0Xgrrkde neck0.918 gm/cm2 Standard deviation from young adult [...] MDReport Verified Date/Time: 03/13/2020 12:46:53 Reading Location: [address] Reading Room BILIRUBIN, [id number] 12:38:00 Test Item Value Reference Range Interpretation Comments BILIRUBIN DIRECT (BEAKER) (test 1.0 mg/dL 0.1-0.5 H code = 706) [employer] ID - AAHAMIDPROTHROMBIN [id number] 12:23:00 Test Item Value Reference Range Interpretation [...] mechanical heart valves.CBC W/PLT COUNT & AUTO [id number] 12:16:00 Test Item Value Reference Range Interpretation [...] PERCENT (BEAKER) (test code = 2801) BLOOD [id number] 20:00:00 Test Item Value Reference Range Interpretation Comments CULTURE (BEAKER) (test No growth in 5 days code = 1095) BLOOD [id number] 20:00:00 Test Item Value Reference Range Interpretation Comments CULTURE (BEAKER) (test No growth in 5 days code = 1095) POCT-GLUCOSE [id number] 07:47:00 Test Item Value Reference Range Interpretation Comments POC-GLUCOSE METER 121 mg/dL 70-110 H : TESTED A T [facility] 6720 (BEAKER) (test code = NICOLE [place]AN [place], 1538) 212[address]: [employer]/Techni zaire ID = [id number] for RADHA GARVEY HEPATIC FUNCTION [id number] 07:24:00 Test Item Value Reference Range Interpretation [...] (test code = 25 U/L 6-55 347) [employer] ID - PIAYA LSpecimen slightly ictericPOCT-GLUCOSE [id number] 22:18:00 Test Item Value Reference Range Interpretation Comments POC-GLUCOSE METER 143 mg/dL 70-110 H : TESTED A T [facility] 6720 (BEAKER) (test code = [facility], 153) 58062: [employer]/Techni zaire ID = [id number] for CA ELICIA CHEWI POCT-GLUCOSE [id number] 17:24:00 Test Item Value Reference Range Interpretation Comments POC-GLUCOSE METER 214 mg/dL 70-110 H : TESTED A T [facility] 6720 (BEAKER) (test code = [facility], [employer]) 62261: [employer]/Techni zaire ID = [id number] for SA NTOS, WADE POCT-GLUCOSE [id number] 13:32:00 Test Item Value Reference Range Interpretation Comments POC-GLUCOSE METER 127 mg/dL 70-110 H : TESTED A T [facility] 6720 (BEAKER) (test code = [facility], [employer]) 81601: [employer]/Techni zaire ID = [id number] for SA NTOS, WADE POCT-GLUCOSE [id number] 12:08:00 Test Item Value Reference Range Interpretation Comments POC-GLUCOSE METER 124 mg/dL 70-110 H : TESTED A T [facility] 6720 (BEAKER) (test code = [facility], [employer]) 19914: [employer]/Techni zaire ID = [id number] for CHARI RAZO POCT-GLUCOSE [id number] 08:16:00 Test Item Value Reference Range Interpretation Comments POC-GLUCOSE METER 117 mg/dL 70-110 H : TESTED A T [facility] 6720 (BEAKER) (test code = [facility], 1538) 16549: [employer]/Techni zaire ID = [id number] for SA NTOS, WADE BASIC METABOLIC [id number] 06:13:00 Test Item Value Reference Range Interpretation [...] S NOT APPLICABLE FOR DIALYSIS PATIEN TS. [employer] ID - KRISHNA ZAVALETAray slightly ictericHEPATIC FUNCTION [id number] 06:13:00 Test Item Value Reference Range Interpretation [...] (test code = 27 U/L 6-55 347) [employer] ID - KRISHNA Poncho slightly ictericPROTHROMBIN [id number] 05:46:00 Test Item Value Reference Range Interpretation [...] mechanical heart valves.CBC W/PLT COUNT & AUTO [id number] 05:21:00 Test Item Value Reference Range Interpretation [...] PERCENT (BEAKER) (test code = 2801) POCT-GLUCOSE [id number] 22:38:00 Test Item Value Reference Range Interpretation Comments POC-GLUCOSE METER 181 mg/dL 70-110 H : TESTED Lana T [facility] 6720 (BEAKER) (test code = ABELMARYAN ALAN [place], 1538) 22540: [employer]/Techni zaire ID = [id number] for RON BLANCO (CELLAVISION MANUAL DIFF)2019-12-28 15:15:00 Test Item Value Reference [...] CONCENTRATION Decreased (CELLAVISION)(BEAKER) (test code = 3438) [employer] ID - Carter-Ulisses Christo comments: Slide comments:CBC W/PLT COUNT & AUTO [id number] 15:11:00 Test Item Value Reference Range Interpretation [...] PERCENT (BEAKER) (test code = 2801) POCT-GLUCOSE [id number] 10:15:00 Test Item Value Reference Range Interpretation Comments POC-GLUCOSE METER 178 mg/dL 70-110 H : TESTED A T [facility] 6720 (BEAKER) (test code = [facility], 1538) 44054: [employer]/Techni zaire ID = [id number] for DELPHINE JUAREZ POCT-GLUCOSE [id number] 09:08:00 Test Item Value Reference Range Interpretation Comments POC-GLUCOSE METER 167 mg/dL 70-110 H : TESTED A T [facility] 6720 (BEAKER) (test code = [facility], 1538) 46529: [employer]/Techni zaire ID = [id number] for WONG COWAN BASIC METABOLIC [id number] 07:06:00 Test Item Value Reference Range Interpretation [...] S NOT APPLICABLE FOR DIALYSIS PATIEN TS. [employer] ID - PIAYA LSpecimen slightly ictericHEPATIC FUNCTION [id number] 07:06:00 Test Item Value Reference Range Interpretation [...] (test code = 20 U/L 6-55 347) [employer] ID - PIAYA LSpecimen slightly ictericPOCT-GLUCOSE [id number] 22:05:00 Test Item Value Reference Range Interpretation Comments POC-GLUCOSE METER 216 mg/dL 70-110 H : TESTED A T [facility] 6720 (BEAKER) (test code = NICOLE Arita [place], 1538) 07704: [employer]/Techni zaire ID = [id number] for DAVID TABLERT POCT-GLUCOSE [id number] 17:07:00 Test Item Value Reference Range Interpretation Comments POC-GLUCOSE METER 244 mg/dL 70-110 H : TESTED A T [facility] 6720 (BEAKER) (test code = NICOLE Arita [facility], 1538) 64586: [employer]/Techni zaire ID = [id number] for IB ANUSHA TOLBERTLEM CBC W/PLT COUNT & AUTO [id number] 12:15:00 Test Item Value Reference Range Interpretation [...] PERCENT (BEAKER) (test code = 2801) POCT-GLUCOSE [id number] 11:54:00 Test Item Value Reference Range Interpretation Comments POC-GLUCOSE METER 226 mg/dL 70-110 H : TESTED A T [facility] 6720 (BEAKER) (test code = N[place], 1538) 57418: [employer]/Techni zaire ID = [id number] for CHUCHO SALDIVAR BASIC METABOLIC [id number] 08:18:00 Test Item Value Reference Range Interpretation [...] S NOT APPLICABLE FOR DIALYSIS PATIEN TS. [employer] ID - NTPPOCT-GLUCOSE [id number] 08:07:00 Test Item Value Reference Range Interpretation Comments POC-GLUCOSE METER 166 mg/dL 70-110 H : TESTED A T [facility] 6720 (BEAKER) (test code = [facility], 1538) 51056: [employer]/Techni zaire ID = [id number] for CHUCHO SALDIVAR HEPATIC FUNCTION [id number] 05:05:00 Test Item Value Reference Range Interpretation [...] (test code = 19 U/L 6-55 347) [employer] ID - EDASISpecimen slightly ictericPOCT-GLUCOSE [id number] 17:47:00 Test Item Value Reference Range Interpretation Comments POC-GLUCOSE METER 222 mg/dL 70-110 H : TESTED A T [facility] 6720 (BEAKER) (test code = [facility], 153) 50380: [employer]/Techni zaire ID = [id number] for BRAXTON MORAN POCT-GLUCOSE [id number] 12:25:00 Test Item Value Reference Range Interpretation Comments POC-GLUCOSE METER 311 mg/dL 70-110 H : TESTED A T [facility] 6720 (BEAKER) (test code = [facility], 1538) 52969: [employer]/Techni zaire ID = [id number] for MA RTINEZ, BRAXTON POCT-GLUCOSE [id number] 07:49:00 Test Item Value Reference Range Interpretation Comments POC-GLUCOSE METER 190 mg/dL 70-110 H : TESTED A T [facility] 6720 (BEAKER) (test code = NICOLE AL[place], 1538) 26904: [employer]/Techni zaire ID = [id number] for BRAXTON MORAN VITAMIN B12 AND [id number] 06:11:00 Test Item Value Reference Range Interpretation Comments VITAMIN B12 (BEAKER) (test code = 873 pg/mL 213-816 H 774) FOLATE (BEAKER) (test code = 362) 12.30 ng/mL >=7.00 [employer] ID - EDASIBASIC METABOLIC [id number] 05:21:00 Test Item Value Reference Range Interpretation [...] S NOT APPLICABLE FOR DIALYSIS PATIEN TS. [employer] ID - EDASIHEPATIC FUNCTION [id number] 05:21:00 Test Item Value Reference Range Interpretation [...] (test code = 19 U/L 6-55 347) [employer] ID - EDASICBC W/PLT COUNT & AUTO [id number] 05:12:00 Test Item Value Reference Range Interpretation [...] PERCENT (BEAKER) (test code = 2801) PROTHROMBIN [id number] 04:56:00 Test Item Value Reference Range Interpretation [...] is2.5-3.5 for patients wiht mechanical heart valves.POCT-GLUCOSE [id number] 22:11:00 Test Item Value Reference Range Interpretation Comments POC-GLUCOSE METER 195 mg/dL 70-110 H : TESTED A T [facility] 6720 (BEAKER) (test code = N[place], 1538) 07867: [employer]/Techni zaire ID = [id number] for MORELIAHarlan WONG HEMOGLOBIN AND [id number] 16:15:00 Test Item Value Reference Range Interpretation Comments HEMOGLOBIN (BEAKER) (test code = 8.6 GM/DL 13.7-17.5 L 410) HEMATOCRIT (BEAKER) (test code = 30.2 % 40.1-51.0 L 411) [employer] ID - [id number] 13:02:00 Test Item Value Reference Range Interpretation Comments FERRITIN (BEAKER) (test code = 73.10 ng/mL 5.00-275.00 361) [employer] ID - EDASIMARCN, TIBC, % SAT. (WITHOUT FERRITIN)2019-12-25 12:42:00 Test Item Value Reference Range Interpretation Comments IRON (BEAKER) (test code = 547) 29.0 ug/dL 40.0-160.0 L TOTAL IRON BINDING CAPACITY 151 ug/dL 250-450 L (BEAKER) (test code = 769) IRON % SATURATION (2) (BEAKER) 19 % 20-55 L (test code = 2590) [employer] ID - EDASICOMPREHENSIVE METABOLIC [id number] 06:44:00 Test Item Value Reference Range Interpretation [...] S NOT APPLICABLE FOR DIALYSIS PATIEN TS. [employer] ID - EDASICBC W/PLT COUNT & AUTO [id number] 05:55:00 Test Item Value Reference Range Interpretation [...] PERCENT (BEAKER) (test code = 2801) POCT-GLUCOSE [id number] 23:39:00 Test Item Value Reference Range Interpretation Comments POC-GLUCOSE METER 307 mg/dL 70-110 H : TESTED A T [facility] (BEAKER) (test code = N[place], 1538) 13599: [employer]/Techni zaire ID = [id number] for Erendira Talbert (contrac t) RAD, CHEST, 1 VIEW, NON [id number] 18:52:00REFERRING MD: ANIL SALVADOR Reason for exam:->sobShould this be performed [...] MDReport Verified Date/Time: 12/24/2019 18:52:34 Reading Location: [address] Consult Reading Room BASI METABOLIC PANEL 2019-06-04 09:29:00 Test Item Value Reference Range Interpretation [...] Specimen slightly ictericCBC W/PLT COUNT & AUTO [id number] 08:54:00 Test Item Value Reference Range Interpretation [...] (BEAKER) (test code = 2801) HEPATITIS C [id number] 12:25:00 Test Item Value Reference Range Interpretation Comments HEPATITIS C ANTIBODY (BEAKER) (test Reactive Nonreactive A code = 367) ALPHA FETOPROTEIN (AFP), TUMOR [id number] 15:45:00 Test Item Value Reference Range Interpretation Comments ALPHA-FETOPROTEIN (BEAKER) (test 2.7 ng/mL <10.0 code = 1094) BASIC METABOLIC [id number] 15:36:00 Test Item Value Reference Range Interpretation [...] DIALYSIS PATIEN TS. Specimen slightly ictericHEPATIC FUNCTION [id number] 15:35:00 Test Item Value Reference Range Interpretation [...] 21 U/L 6-55 347) Specimen slightly ictericPROTHROMBIN [id number] 15:00:00 Test Item Value Reference Range Interpretation [...] mechanical heart valves.CBC W/PLT COUNT & AUTO [id number] 14:53:00 Test Item Value Reference Range Interpretation [...] code = 2801) ALPHA FETOPROTEIN (AFP), TUMOR [id number] 14:10:00 Test Item Value Reference Range Interpretation Comments ALPHA-FETOPROTEIN (BEAKER) (test 2.7 ng/mL <10.0 code = 1094) BASIC METABOLIC [id number] 13:52:00 Test Item Value Reference Range Interpretation [...] DIALYSIS PATIEN TS. Specimen slightly ictericHEPATIC FUNCTION [id number] 13:52:00 Test Item Value Reference Range Interpretation [...] 24 U/L 6-55 347) Specimen slightly ictericPROTHROMBIN [id number] 13:49:00 Test Item Value Reference Range Interpretation [...] mechanical heart valves.CBC W/PLT COUNT & AUTO [id number] 13:35:00 Test Item Value Reference Range Interpretation [...] 0-1 PERCENT (BEAKER) (test code = 2801) POCT HEMOGLOBIN A1C [id number] 21:30:00 Test Item Value Reference Range Interpretation Comments POCT HBA1C (test code = 4548-4) 7.4 % 4-6 A Lab Interpretation (test code = Abnormal 49985-9) [facility] [id number] 21:30:00 Test Item Value Reference Range Interpretation Comments POCT HBA1C (test code = 4548-4) 7.4 % 4-6 A Lab Interpretation (test code = Abnormal 52990-1) [id number] 14:59:00 Test Item Value Reference Range Interpretation Comments T4 TOTAL (BEAKER) (test code = 895) 5.7 ug/dL 4.9-11.7 [id number] 13:20:00 Test Item Value Reference Range Interpretation Comments T3 TOTAL (BEAKER) (test code = 656) 113 ng/dL 48-159 CYTOMEGALOVIRUS ANTIBODY, [id number] 11:11:00 Test Item Value Reference Range Interpretation Comments CYTOMEGALOVIRUS, IGG (BEAKER) Positive Negative, Equivocal A (test code = 3429) CMV IgG Result Interpretation: </= 0.8 Al Negative 0.9-1.0 Al Equivocal >/=1.1 Al PositiveCYTOMEGALOVIRUS ANTIBODY, [id number] 11:11:00 Test Item Value Reference Range Interpretation Comments CYTOMEGALOVIRUS IGM ANTIBODY Negative Negative, Equivocal (BEAKER) (test code = 3437) CMV IgM Result Interpretation: </= 0.8 Al Negative 0.9-1.0 Al Equivocal >/= 1.1 Al PositiveEBV ANTIBODY, [id number] 11:08:00 Test Item Value Reference Range Interpretation [...] Equivocal >/= 1.1 Al PositiveVARICELLA ZOSTER ANTIBODY, [id number] 11:08:00 Test Item Value Reference Range Interpretation Comments VARICELLA ZOSTER IGG (AL) (BEAKER) > (test code = 3197) VARICELLA ZOSTER RESULT INTERPRETATIONS: <=0.8 Al Nonreactive: Presumed non-immune to VZV 0.9-1.0 Al Equivocal >=1.1 Al Reactive: Presumed immune to BXNSLXFA-1-[id number] 13:11:00 Test Item Value Reference Range Interpretation Comments ALPHA-1 ANTITRYPSIN (BEAKER) 155.30 mg/dL 90.00-200.00 (test code = 502) HEMOGLOBIN [id number] 13:08:00 Test Item Value Reference Range Interpretation Comments HEMOGLOBIN A1C (BEAKER) (test code = 6.4 % 4.3-6.1 H 368) HEPATITIS A ANTIBODY, [id number] 12:51:00 Test Item Value Reference Range Interpretation Comments HEPATITIS A IGG ANTIBODY (BEAKER) Reactive Nonreactive A (test code = 2797) HEPATITIS C [id number] 12:51:00 Test Item Value Reference Range Interpretation Comments HEPATITIS C ANTIBODY (BEAKER) (test Reactive Nonreactive A code = 367) [id number] 12:48:00 Test Item Value Reference Range Interpretation Comments PROSTATE SPECIFIC ANTIGEN (BEAKER) 0.4 ng/mL 0.0-4.0 (test code = 844) HIV-1 ANTIGEN WITH HIV-1/2 [id number] 12:48:00 Test Item Value Reference Range Interpretation Comments HIV-1 ANTIGEN WITH HIV 1\\T\\2 Nonreactive Nonreactive ANTIBODY (2) (BEAKER) (test code = 2586) VITAMIN D, [id number] 12:46:00 Test Item Value Reference Range Interpretation Comments VITAMIN D 25-OH (BEAKER) (test code 7.7 ng/mL 6.6-49.9 = 2764) Effective 03/08/2017: Reference Range ChangeNew: 6.6-49.9 ng/mL Previous: 13.0-47.8 ng/mLRecommended Vitamin D Target Range: 30.0-40.0 ng/mLURINALYSIS W/ [id number] 11:55:00 Test Item Value Reference Range Interpretation [...] 1579) 2 /LPF SOURCE(BEAKER) (test code = 1240) CRYPTOCOCCAL [id number] 11:10:00 Test Item Value Reference Range Interpretation Comments CRYPTOCOCCAL ANTIGEN, SERUM Negative Negative, Interference (BEAKER) (test code = 1828) [id number] 10:59:00 Test Item Value Reference Range Interpretation Comments THYROID STIMULATING HORMONE 2.10 uIU/mL 0.35-4.94 (BEAKER) (test code = 772) [id number] 10:59:00 Test Item Value Reference Range Interpretation Comments FERRITIN (BEAKER) (test code = 361) 69 ng/mL 5-275 [id number] 10:51:00 Test Item Value Reference Range Interpretation Comments RPR SCREEN (BEAKER) (test code = Nonreactive Nonreactive 420) [id number] 10:49:00 Test Item Value Reference Range Interpretation Comments TRANSFERRIN (BEAKER) (test code = 197 mg/dL 174-382 541) Specimen slightly [id number] 10:45:00 Test Item Value Reference Range Interpretation Comments MAGNESIUM (BEAKER) (test code = 1.5 mg/dL 1.6-2.6 L 627) [id number] 10:45:00 Test Item Value Reference Range Interpretation Comments PHOSPHORUS (BEAKER) (test code = 3.6 mg/dL 2.3-4.7 604) URIC [id number] 10:45:00 Test Item Value Reference Range Interpretation Comments URIC ACID (BEAKER) (test code = 4.8 mg/dL 2.6-7.2 773) Specimen slightly ictericCOMPREHENSIVE METABOLIC [id number] 10:45:00 Test Item Value Reference Range Interpretation [...] FOR DIALYSIS PATIEN TS. Specimen slightly ictericLIPID [id number] 10:45:00 Test Item Value Reference Range Interpretation [...] 160-189 Very High >=190 Specimen slightly ictericBILIRUBIN, [id number] 10:45:00 Test Item Value Reference Range Interpretation Comments BILIRUBIN DIRECT (BEAKER) (test 1.6 mg/dL 0.1-0.5 H code = 706) GAMMA GLUTAMYL TRANSFERASE (GGT)2018-12-20 10:45:00 Test Item Value Reference Range Interpretation Comments GAMMA GLUTAMYL TRANSFERASE (BEAKER) 33 U/L 9-64 (test code = 364) Specimen slightly [id number] 10:42:00 Test Item Value Reference Range Interpretation Comments PARTIAL THROMBOPLASTIN TIME 37.9 seconds 22.5-36.0 H (BEAKER) (test code = 760) PROTHROMBIN [id number] 10:36:00 Test Item Value Reference Range Interpretation [...] INR is2.5-3.5 for patients wiht mechanical heart valves.[id number] 10:36:00 Test Item Value Reference Range Interpretation Comments ETHANOL (BEAKER) (test code = 400) < mg/dL <=10 [id number] 10:36:00 Test Item Value Reference Range Interpretation Comments FIBRINOGEN LEVEL (BEAKER) (test 207 mg/dl 225-434 L code = 658) BLOOD GAS, [id number] 10:35:00 Test Item Value Reference Range Interpretation [...] 21.0 % CBC W/PLT COUNT & AUTO [id number] 10:25:00 Test Item Value Reference Range Interpretation [...] PERCENT (BEAKER) (test code = 2801) CALCIUM, [id number] 10:20:00 Test Item Value Reference Range Interpretation Comments CALCIUM IONIZED (BEAKER) (test 1.05 mmol/L 1.12-1.27 L code = 698) PH, BLOOD (BEAKER) (test code = 7.41 1810) RAD, MANDIBLE, MIN 4 [id number] 16:56:00REFERRING : ANIL SALVADOR Reason for Exam:->pretransplant liver evaluationFINAL REPORT TECHNIQUE: Minimum four views of the mandible. INDICATION: pretransplant liver evaluation. COMPARISON: None. FINDINGS:No fracture or dislocation.No periapical lucencies.Caries of a maxillary molar, side indeterminate.Mild degenerative disc changes at C4-C5, C5-C6, and C6-C7. IMPRESSION: No periapical lucency. Caries of a maxillary molar, side indeterminate. Signed:Tawanda Alvarez MDReport Verified Date/Time: 12/19/2018 16:56:31 Reading Location: [address] Radiology Reading Room RAD, CHEST, 2 [id number] 15:51:00REFERRING : ANIL SALVADOR Reason for Exam:->pretransplant liver evaluationFINAL REPORT Chest, PA and lateral. History: Transplant evaluation. Comparison: 10/28/2018. Discussion: The cardiomediastinal silhouette and pulmonary vasculature are within normal limits. The lungs are clear without evidence of consolidation or effusion. There are no acute osseous abnormalities. The soft tissues are unremarkable. IMPRESSION: No acute cardiopulmonary abnormality. Signed: Farzaneh Walker MDReport Verified Date/Time: 12/19/2018 15:51:17 Reading Location: [facility] Mammo Reading Room MR, ABDOMEN, [id number] 14:51:00 REFERRING MD: ANIL VEGAINAL REPORT TECHNIQUE: MRI of the abdomen [...] and large esophageal varices. Signed: Tawanda Alvarez [facility] Verified Date/Time: 12/19/2018 14:51:24 Reading Location: [address] Radiology Reading Room [facility] 2018-12-06 11:12:00 Test Item Value Reference Range Interpretation Comments ETHANOL (BEAKER) (test code = 400) < mg/dL <=10 BASIC METABOLIC [id number] 10:56:00 Test Item Value Reference Range Interpretation [...] DIALYSIS PATIEN TS. Specimen moderately ictericHEPATIC FUNCTION [id number] 10:56:00 Test Item Value Reference Range Interpretation [...] 27 U/L 6-55 347) Specimen moderately ictericPROTHROMBIN TIME/[id number] 10:40:00 Test Item Value Reference Range Interpretation [...] mechanical heart valves.CBC W/PLT COUNT & AUTO [id number] 10:38:00 Test Item Value Reference Range Interpretation [...] PERCENT (BEAKER) (test code = 2801) BLOOD [id number] 08:00:00 Test Item Value Reference Range Interpretation Comments CULTURE (BEAKER) (test No growth in 5 days code = 1095) BLOOD [id number] 08:00:00 Test Item Value Reference Range Interpretation Comments CULTURE (BEAKER) (test No growth in 5 days code = 1095) BODY FLUID CULTURE + GRAM [id number] 12:20:00 Test Item Value Reference Range Interpretation Comments CULTURE (BEAKER) (test code No growth = 1095) GRAM STAIN RESULT (BEAKER) 1+ WBCs (test code = 1123) GRAM STAIN RESULT (BEAKER) No organisms seen (test code = 92966) HEPATITIS C PCR, [id number] 08:32:00 Test Item Value Reference Range Interpretation Comments HCV RESULT COMPONENT HCV RNA not detected HCV RNA not detected (BEAKER) (test code = 2699) This test uses a Real-Time Polymerase Chain Reaction (RT-PCR) methodology and was performed using [employer] Ampliprep/KHOA TaqMan HCV test kit version 2.0 ([employer]).Reportable range for this assay is 15 - 100,000,000 IU per mL (1.18 - 8.00 Log IU/mL).POCT-GLUCOSE [id number] 08:09:00 Test Item Value Reference Range Interpretation Comments POC-GLUCOSE METER 117 mg/dL 70-[address] [facility] [address] (BEAKER) (test code = NICOLE [place] 1538) [address] CALCIUM, [id number] 05:54:00 Test Item Value Reference Range Interpretation Comments CALCIUM IONIZED (BEAKER) (test 1.01 mmol/L 1.12-1.27 L code = 698) PH, BLOOD (BEAKER) (test code = 7.45 1810) COMPREHENSIVE METABOLIC [id number] 05:07:00 Test Item Value Reference Range Interpretation [...] APPLICABLE FOR DIALYSIS PATIEN TS. Specimen slightly [id number] 05:06:00 Test Item Value Reference Range Interpretation Comments PHOSPHORUS (BEAKER) (test code = 3.3 mg/dL 2.3-4.7 604) [id number] 05:06:00 Test Item Value Reference Range Interpretation Comments MAGNESIUM (BEAKER) (test code = 1.5 mg/dL 1.6-2.6 L 627) CBC W/PLT COUNT & AUTO [id number] 04:43:00 Test Item Value Reference Range Interpretation [...] PERCENT (BEAKER) (test code = 2801) POCT-GLUCOSE [id number] 21:35:00 Test Item Value Reference Range Interpretation Comments POC-GLUCOSE METER 154 mg/dL 70-[address] [facility] (test code = [place] 1538) [address] POCT-GLUCOSE [id number] 17:21:00 Test Item Value Reference Range Interpretation Comments POC-GLUCOSE METER 138 mg/dL 70-[address] [facility] [facility] (test code = [place] 1538) [address] POCT-GLUCOSE [id number] 13:27:00 Test Item Value Reference Range Interpretation Comments POC-GLUCOSE METER 166 mg/dL 70-[address] [facility] [address] (BEAKER) (test code = [place] 1538) [address] CBC W/PLT COUNT & AUTO [id number] 12:00:00 Test Item Value Reference Range Interpretation [...] 3438) Received comment: User comments: Slide comments:POCT-GLUCOSE [id number] 11:52:00 Test Item Value Reference Range Interpretation Comments POC-GLUCOSE METER 180 mg/dL 70-[address] [facility] [address] (BEAKER) (test code = NICOLE Arita [facility] 1538) [address] POCT-GLUCOSE [id number] 08:09:00 Test Item Value Reference Range Interpretation Comments POC-GLUCOSE METER 115 mg/dL 70-[address] [facility] [address] (BEAKER) (test code = [facility] [place] [facility] 1538) [address] COMPREHENSIVE METABOLIC [id number] 05:59:00 Test Item Value Reference Range Interpretation [...] APPLICABLE FOR DIALYSIS PATIEN TS. Specimen slightly [id number] 05:57:00 Test Item Value Reference Range Interpretation Comments MAGNESIUM (BEAKER) (test code = 1.6 mg/dL 1.6-2.6 627) POCT-GLUCOSE [id number] 22:30:00 Test Item Value Reference Range Interpretation Comments POC-GLUCOSE METER 186 mg/dL 70-[address] [facility] [address] ([facility]) (test code = NICOLE [place] 1538) [address] POCT-GLUCOSE [id number] 18:33:00 Test Item Value Reference Range Interpretation Comments POC-GLUCOSE METER 117 mg/dL 70-[address] [facility] [address] ([facility]) (test code = NICOLE [place] 1538) [address] U/S, [id number] 17:34:00REFERRING MD: ANIL SALVADOR Please give 25g albumin if over [...] 2% lidocaine anesthesia was administered. A 5 Bermudian catheter was advanced into the peritoneal cavity and 1300 cc of addison fluid was removed. The catheter was removed without immediate complication. Samples left with interstitial sent to the lab for analysis. IMPRESSION:Uncomplicated ultrasound-guided paracentesis with 1300 cc fluid removed. Signed: Mauricio Cullen MDReport Verified Date/Time: 10/29/2018 17:34:00 Reading Location: [place] [address] Ultrasound Reading Room VANCOMYCIN LEVEL, TROUGH 2018-10-29 17:22:00 Test Item Value Reference Range Interpretation Comments VANCOMYCIN TROUGH (BEAKER) (test 7.3 ug/mL 10.0-20.0 L code = 522) CBC W/PLT COUNT & AUTO [id number] 15:00:00 Test Item Value Reference Range Interpretation [...] = 2801) BODY FLUID CELL COUNT WITH [id number] 13:45:00 Test Item Value Reference Range Interpretation [...] Tube (test code = 2873) RESPIRATORY PANEL [id number] 12:27:00 Test Item Value Reference Range Interpretation [...] [facility] using the BiotectixArray Respiratory Panel. It is FDA cleared and has been verified and approved by the [facility] for clinical use on nasopharyngeal swab specimens.The performance of the FilmArrayRP has not been established in individuals who received influenza vaccine. Recent administration ofa nasal influenza vaccine may cause false positive results for Influenza A and/orInfluenza B.POCT-GLUCOSE [id number] 12:16:00 Test Item Value Reference Range Interpretation Comments POC-GLUCOSE METER 196 mg/dL 70-[address] [facility] [address] (BEAKER) (test code = N[place] 1538) [address] RESPIRATORY PANEL [id number] 10:59:00 Test Item Value Reference Range Interpretation [...] [facility] using the BiotectixArray Respiratory Panel. It is FDA cleared and has been verified and approved by the [facility] for clinical use on nasopharyngeal swab specimens.The performance of the FilmArrayRP has not been established in individuals who received influenza vaccine. Recent administration ofa nasal influenza vaccine may cause false positive results for Influenza A and/orInfluenza B.POCT-GLUCOSE [id number] 08:15:00 Test Item Value Reference Range Interpretation Comments POC-GLUCOSE METER 184 mg/dL 70-[address] [facility] [address] ([facility]) (test code = [place] 1538) [address] CBC W/PLT COUNT & AUTO [id number] 07:49:00 Test Item Value Reference Range Interpretation Comments WHITE BLOOD CELL COUNT ([facility]) 7.2 K/ L 3.5-10.5 (test code = 775) RED BLOOD CELL COUNT (AKER) 2.66 M/ L 4.63-6.08 L (test code = 761) HEMOGLOBIN (BEAKER) (test code = 8.9 GM/DL 13.7-17.5 L 410) HEMATOCRIT ([facility]) (test code = 27.2 % 40.1-51.0 L 411) MEAN CORPUSCULAR VOLUME ([facility]) 102.3 fL 79.0-92.2 H (test code = [...] APPLICABLE FOR DIALYSIS PATIEN TS. Specimen moderately [id number] 04:31:00 Test Item Value Reference Range Interpretation Comments MAGNESIUM (BEAKER) (test code = 1.9 mg/dL 1.6-2.6 627) LACTIC ACID, [id number] 04:18:00 Test Item Value Reference Range Interpretation Comments LACTATE BLOOD VENOUS (2) (BEAKER) 1.3 mmol/L 0.5-2.2 (test code = 2872) Specimen moderately ictericPOCT-GLUCOSE [id number] 18:00:00 Test Item Value Reference Range Interpretation Comments POC-GLUCOSE METER 121 mg/dL 70-[address] [facility] [address] ([facility]) (test code = [place] 1538) [address] [id number] 12:39:00 Test Item Value Reference Range Interpretation Comments PROCALCITONIN ([facility]) (test code 4.50 ng/mL <0.05 H = 3036) SEPSIS RISK (ng/mL)Low: 0.05-0.50Intermediate: 0.51-2.00High: >=2.01POCT-GLUCOSE [id number] 12:20:00 Test Item Value Reference Range Interpretation Comments POC-GLUCOSE METER 148 mg/dL 70-[address] [facility] [address] ([facility]) (test code = N[place] 1538) [address] LEGIONELLA ANTIGEN, [id number] 12:13:00 Test Item Value Reference Range Interpretation Comments L. PNEUMOPHILA Negative - see Negative fo r L. SEROGP 1 UR AG comment pneumophila ([facility]) (test code serogrou p 1 antigen, = 1156) suggesting no r ecent or current infe ction with this serog roup. Legionellosis c annot be ruled out si nce other serogroup s and species may cau se disease. STREP PNEUMONIAE [id number] 12:13:00 Test Item Value Reference Range Interpretation [...] limit of the test. RAPID INFLUENZA A&B [id number] 12:11:00 Test Item Value Reference Range Interpretation Comments RAPID INFLUENZA A AG (BEAKER) Negative Negative, Inconclusive (test code = 1622) RAPID INFLUENZA B AG (BEAKER) Negative Negative, Inconclusive (test code = 1623) LACTIC ACID, [id number] 10:51:00 Test Item Value Reference Range Interpretation Comments LACTATE BLOOD VENOUS (2) (BEAKER) 3.0 mmol/L 0.5-2.2 H (test code = 2872) Specimen moderately ictericU/S, ABDOMINAL, [id number] 07:19:00REFERRING : ANIL SALVADOR Please perform with dopplersReason for exam:->patient [...] flow direction. 4. Minimal ascites. Signed: Curtis Almanzaeport Verified Date/Time: 10/28/2018 07:19:25 Reading Location: [place] [id number] Transitional Reading Room RAPID DRUG SCREEN, [id number] 07:07:00 Test Item Value Reference Range Interpretation [...] situations. Chain of custody not maintained. Some ucrh-tma-nmsixkk medications, as well as adulterants, may cause inaccurate results. Clinical correlation should be applied. A more comprehensive drug screen or confirmation of a detected drug may be performed upon request.CT, BRAIN, WITHOUT [id number] 06:42:00REFERRING MD: ANIL FRANCISCO REPORT CT, BRAIN, WITHOUT CONTRAST CLINICAL [...] Verified Date/Time: 10/28/2018 06:42:47 VITAMIN B12 AND [id number] 06:21:00 Test Item Value Reference Range Interpretation Comments VITAMIN B12 (BEAKER) (test code = 719 pg/mL 213-816 774) FOLATE (BEAKER) (test code = 362) 13.7 ng/mL >=7.0 TROPONIN [id number] 06:05:00 Test Item Value Reference Range Interpretation [...] H (test code = 2590) COMPREHENSIVE METABOLIC [id number] 05:44:00 Test Item Value Reference Range Interpretation [...] APPLICABLE FOR DIALYSIS PATIEN TS. Specimen moderately [id number] 05:38:00 Test Item Value Reference Range Interpretation Comments MAGNESIUM (BEAKER) (test code = 2.3 mg/dL 1.6-2.6 627) LACTIC ACID, [id number] 05:32:00 Test Item Value Reference Range Interpretation Comments LACTATE BLOOD VENOUS 4.1 mmol/L 0.5-2.2 H Specime n slightly (2) (BEAKER) (test hemolyzed code = 7041) Specimen moderately ictericTROPONIN [id number] 02:28:00 Test Item Value Reference Range Interpretation [...] disease, and persistent tachyarrhythmia.RAD, ABDOMEN/KUB, 1 VIEW [id number] 02:04:00REFERRING MD: ANIL SALVADOR Reason for exam:->NG tube placementFINAL REPORT [...] Navarrete MDReport Verified Date/Time: 10/28/2018 02:04:20 HROMBIN TIME/[id number] 01:58:00 Test Item Value Reference Range Interpretation [...] mechanical heart valves.CBC W/PLT COUNT & AUTO [id number] 01:45:00 Test Item Value Reference Range Interpretation [...] User comments: Slide comments:URINALYSIS W/ REFLEX URINE [id number] 01:36:00 Test Item Value Reference Range Interpretation [...] SOURCE(BEAKER) (test code = 2795) COMPREHENSIVE METABOLIC [id number] 01:16:00 Test Item Value Reference Range Interpretation [...] APPLICABLE FOR DIALYSIS PATIEN TS. Specimen moderately [id number] 01:15:00 Test Item Value Reference Range Interpretation Comments AMMONIA (BEAKER) (test code = 348) 69 mol/L 18-72 LACTIC ACID, [id number] 01:08:00 Test Item Value Reference Range Interpretation Comments LACTATE BLOOD VENOUS (2) (BEAKER) 3.2 mmol/L 0.5-2.2 H (test code = 2872) Specimen moderately [id number] 01:08:00 Test Item Value Reference Range Interpretation Comments MAGNESIUM (BEAKER) (test code = 1.1 mg/dL 1.6-2.6 L 627) RAD, CHEST, 1 VIEW, NON [id number] 00:52:00REFERRING MD: ANIL SALVADOR Reason for exam:->sepsisShould this be performed [...] MDReport Verified Date/Time: 10/28/2018 00:52:42 [id number] ACTIN (SMOOTH MUSCLE) ANTIBODY, [id number] 08:28:00 Test Item Value Reference Range Interpretation Comments SCAN RESULT (test code = 1758964) [id number] 08:27:00 Test Item Value Reference Range Interpretation Comments SCAN RESULT (test code = 7620948) NILS TITER AND [id number] 09:55:00 Test Item Value Reference Range Interpretation Comments NILS TITER (BEAKER) (test code = :160 1541) NILS PATTERN (BEAKER) (test code = Speckled 1781) ANTI-NUCLEAR ANTIBODY (NILS)2018-10-05 09:54:00 Test Item Value Reference Range Interpretation Comments ANTI-NUCLEAR ANTIBODY (NILS) (BEAKER) Positive Negative A (test code = 418) Test performed by IFA method.[id number] 10:54:00 Test Item Value Reference Range Interpretation Comments FERRITIN (BEAKER) (test code = 361) 218 ng/mL 5-275 HEPATITIS A ANTIBODY, [id number] 10:18:00 Test Item Value Reference Range Interpretation Comments HEPATITIS A IGG ANTIBODY (BEAKER) Reactive Nonreactive A (test code = 2797) ALPHA FETOPROTEIN (AFP), TUMOR [id number] 10:14:00 Test Item Value Reference Range Interpretation Comments ALPHA-FETOPROTEIN (BEAKER) (test 3.5 ng/mL <10.0 code = 1094) HEPATITIS A ANTIBODY, [id number] 10:14:00 Test Item Value Reference Range Interpretation Comments HEPATITIS A IGM ANTIBODY (BEAKER) Nonreactive Nonreactive (test code = 498) HEPATITIS B CORE ANTIBODY, [id number] 10:14:00 Test Item Value Reference Range Interpretation Comments HEPATITIS B CORE TOTAL ANTIBODY Nonreactive Nonreactive (BEAKER) (test code = 497) HEPATITIS B SURFACE [id number] 09:42:00 Test Item Value Reference Range Interpretation Comments HEPATITIS B SURFACE ANTIBODY < mIU/mL <8.0 (BEAKER) (test code = 647) HEPATITIS B SURFACE [id number] 09:36:00 Test Item Value Reference Range Interpretation [...] 41 % 20-55 (test code = 2590) [id number] 09:14:00 Test Item Value Reference Range Interpretation Comments ALPHA-1 ANTITRYPSIN (BEAKER) 159.30 mg/dL 90.00-200.00 (test code = 502) COMPREHENSIVE METABOLIC [id number] 09:10:00 Test Item Value Reference Range Interpretation [...] FOR DIALYSIS PATIEN TS. Specimen slightly ictericBILIRUBIN, [id number] 09:10:00 Test Item Value Reference Range Interpretation Comments BILIRUBIN DIRECT (BEAKER) (test 1.4 mg/dL 0.1-0.5 H code = 706) PROTHROMBIN TIME/[id number] 08:38:00 Test Item Value Reference Range Interpretation [...] % 0-1 PERCENT (BEAKER) (test code = 7206)"
[2021-05-10 11:23] LABS: Absolute Lymphocytes (CBC) 1.5 K/uL (0.7-4.9); Basophils % 0.9 % (0-1.3); Lymphocytes % 36.7 % (15.3-44.8); MPV 8.3 fL (7.6-11.3)
--- NOTE | 2021-05-10 11:24 | RAD REPORT ---
EXAM DESCRIPTION: Shaina Single View05/10/2021 10:48 am CLINICAL HISTORY: Weakness COMPARISON: March 2021 FINDINGS: The lungs appear clear of acute infiltrate. The heart is mildly enlarged IMPRESSION: No acute abnormalities displayed
[2021-05-10 11:39] LABS: Protime INR 1.33
[2021-05-10 12:04] LABS: Albumin 2.4 g/dL (3.4-5.0); Bilirubin Direct 0.6 mg/dL (0-0.2); Bilirubin Total 1.5 mg/dL (0.2-1.0); Magnesium 1.8 mg/dL (1.8-2.4); Potassium 3.7 mmol/L (3.5-5.1); Protein, Total 6.5 g/dL (6.4-8.2); Troponin (Emerg Dept Use Only) 0.08 ng/mL (0.0-0.045)
[2021-05-10 12:08] LABS: Anisocytosis 1+; Blood Morphology Comment NOTED (NOT SEEN); Platelet Estimate DECR
[2021-05-10 12:09] LABS: Elliptocytes 1+
[2021-05-10 12:50] LABS: SARS-COV-2 RT PCR NEGATIVE (NEGATIVE)
--- NOTE | 2021-05-10 12:50 | ER ---
Nurse's Notes [facility] Name: Tonny Vidal Age: 65 yrs Sex: Male : 1955 Arrival Date: 05/10/2021 Time: 10:03 Bed 2 Private MD: Diagnosis: Hypotension, unspecified;Hepatic Encephalopathy;Elevated Troponin Presentation: 05/10 10:36 Chief complaint: Patient states: Sent by Dr. Harley for evaluation and treatment of low ss blood pressure. PT reports runny nose that began yesterday and feeling unsteady x 2-3 days ago. Coronavirus screen: Client denies travel out of the [place] in the last 14 days. Ebola Screen: Patient denies exposure to infectious person. Patient denies travel to an Ebola-affected area in the 21 days before illness onset. Initial Sepsis Screen: Does the patient meet any 2 criteria? No. Patient's initial sepsis screen is negative. Does the patient have a suspected source of infection? No. Patient's initial sepsis screen is negative. Risk Assessment: Do you want to hurt yourself or someone else? Patient reports no desire to harm self or others. Onset of symptoms is unknown. 10:36 Method Of Arrival: Ambulatory ss 10:36 Acuity: FAIZA 3 ss Historical: - Allergies: 10:37 Ativan; ss - PMHx: 10:37 ADD/ADHD; Cirrhosis; Diabetes - NIDDM; Hypertension; psoriasis; ss - Immunization history:: Client reports receiving the 2nd dose of the Covid vaccine. - Social history:: Smoking status: Patient/guardian denies using tobacco, the patient reports quitting approximately 3 years ago. Assessment: 12:36 Reassessment: Patient appears in no apparent distress at this time. Patient and/or iw family updated on plan of care and expected duration. Pain level reassessed. Patient is alert, oriented x 3, equal unlabored respirations, skin warm/dry/pink. 13:13 Reassessment: Patient appears in no apparent distress at this time. Patient and/or iw family updated on plan of care and expected duration. Pain level reassessed. Patient is alert, oriented x 3, equal unlabored respirations, skin warm/dry/pink. pt up to bathroom with steady gait, amb with no assistance. Vital Signs: 10:36 BP 96 / 45; Pulse 61; Resp 15; Temp 98.4(TE); Pulse Ox 99% on R/A; Weight 104.33 kg; Height 5 ft. 6 in. (167.64 cm); Pain 8/10; 12:36 BP 122 / 65; Pulse 60; Resp 16; Pulse Ox 100% on R/A; iw 10:36 Body Mass Index 37.12 (104.33 kg, 167.64 cm) ED Course: 10:03 Patient arrived in ED. ds1 10:09 Jake Trotter PA is PHCP. jmm 10:09 Irving Chacko MD is Attending Physician. jmm 10:37 Triage completed. ss 10:37 Arm band placed on right wrist. ss 10:48 XRAY Chest (1 view) In Process Unspecified. EDMS 10:51 Hugh Aranda, RN is Primary Nurse. ll3 12:46 Bebeto Harley MD is Hospitalizing Provider. m Administered Medications: 13:10 Drug: NS 0.9% 500 ml Route: IV; Rate: bolus; Site: right antecubital; iw 13:10 Drug: Lactulose 30 grams Volume: 45 ml; Route: PO; iw Outcome: 12:49 Decision to Hospitalize by Provider. m 14:21 Patient left the ED. Signatures: Dispatcher [employer] EDMS Jake Trotter PA PA jmm Sanford, Demi ds1 Angela Allen, DIANE CONTRERAS Viviane Larios RN RN Hugh Aranda RN RN ll3
--- NOTE | 2021-05-10 12:50 | EDPHYS ---
Physician Documentation [facility] Name: Tonny Vidal Age: 65 yrs Sex: Male : 1955 Arrival Date: 05/10/2021 Time: 10:03 Bed 2 Private MD: ED Physician Irving Chacko HPI: 05/10 10:09 This 65 yrs old Male presents to ER via Ambulatory with complaints of low bp. jmm 10:09 The patient has experienced near-syncope. Onset: The symptoms/episode began/occurred jmm today. Duration: This was a single episode, that is still ongoing. Associated injury: The patient did not suffer any apparent associated injury. This is a 65-year-old male with history of liver cirrhosis, diabetes mellitus, hypertension the presents emerged department with complaints of weakness and fatigue. Denies abdominal pain. Patient was evaluated by PCP with concerns due to confusion and hypotension. Patient denies black stools. Denies vomiting.. Historical: - Allergies: 10:37 Ativan; ss - PMHx: 10:37 ADD/ADHD; Cirrhosis; Diabetes - NIDDM; Hypertension; psoriasis; ss - Immunization history:: Client reports receiving the 2nd dose of the Covid vaccine. - Social history:: Smoking status: Patient/guardian denies using tobacco, the patient reports quitting approximately 3 years ago. ROS: 10:09 Cardiovascular: Negative for chest pain, palpitations, and edema, Respiratory: Negative jmm for shortness of breath, cough, wheezing, and pleuritic chest pain. 10:09 Constitutional: Positive for fatigue. 10:09 Neuro: Positive for near syncope. 10:09 All other systems are negative. Exam: 10:09 Constitutional: This is a well developed, well nourished patient who is awake, alert, jmm and in no acute distress. Head/Face: atraumatic. Eyes: EOMI, no conjunctival erythema appreciated ENT: Moist Mucus Membranes Neck: Trachea midline, Supple Chest/axilla: Normal chest wall appearance and motion. Cardiovascular: Regular rate and rhythm. No edema appreciated Respiratory: Normal respirations, no respiratory distress appreciated Abdomen/GI: Non distended, soft Back: Normal ROM Skin: General appearance color normal 10:09 Musculoskeletal/extremity: ROM: intact in all extremities. 10:09 Skin: Appearance: Color: normal in color. 10:09 Neuro: Motor: is normal. 10:09 Psych: Behavior/mood is pleasant, cooperative. Vital Signs: 10:36 BP 96 / 45; Pulse 61; Resp 15; Temp 98.4(TE); Pulse Ox 99% on R/A; Weight 104.33 kg; ss Height 5 ft. 6 in. (167.64 cm); Pain 8/10; 12:36 BP 122 / 65; Pulse 60; Resp 16; Pulse Ox 100% on R/A; iw 10:36 Body Mass Index 37.12 (104.33 kg, 167.64 cm) ss MDM: 11:00 Patient medically screened. [facility] 12:45 Data reviewed: vital signs, nurses notes. Counseling: I had a detailed discussion with [facility] the patient and/or guardian regarding: the historical points, exam findings, and any diagnostic results supporting the discharge/admit diagnosis, lab results, radiology results, the need for further work-up and treatment in the hospital. ED course: I have discussed the patient with Dr. Harley whom accepted the patient for admission.. 05/10 10:09 Order name: Basic Metabolic Panel; Complete Time: 12:12 [facility] 05/10 10:09 Order name: CBC with Diff; Complete Time: 12:12 [facility] 05/10 10:09 Order name: LFT's; Complete Time: 12:12 [facility] 05/10 10:09 Order name: Magnesium; Complete Time: 12:12 [facility] 05/10 10:09 Order name: NT PRO-BNP; Complete Time: 12:12 [facility] 05/10 10:09 Order name: PT-INR; Complete Time: 11:47 [facility] 05/10 10:09 Order name: Troponin (emerg Dept Use Only); Complete Time: 12:12 [facility] 05/10 11:23 Order name: AMMONIA; Complete Time: 12:15 [facility] 05/10 11:23 Order name: Lactate; Complete Time: 12:13 [facility] 05/10 11:23 Order name: Procalcitonin; Complete Time: 12:28 [facility] 05/10 12:05 Order name: COVID-19/FLU A+B; Complete Time: 12:59 [facility] 05/10 12:08 Order name: Manual Differential; Complete Time: 12:13 [facility] 05/10 10:09 Order name: XRAY Chest (1 view); Complete Time: 11:28 [facility] 05/10 10:09 Order name: EKG; Complete Time: 10:10 [facility] 05/10 10:09 Order name: Cardiac monitoring; Complete Time: 11:21 [facility] 05/10 12:54 Order name: Diet Heart Healthy; Complete Time: 12:54 ss 05/10 12:56 Order name: 60g Consistent Carbohydrate (ADA 1800/2000) EDMN 05/10 12:56 Order name: EKG Electrocardiogram EDMN 05/10 12:56 Order name: EKG Electrocardiogram EDMN 05/10 12:56 Order name: EKG Electrocardiogram EDMN 05/10 12:56 Order name: EKG Electrocardiogram EDMN 05/10 12:56 Order name: Basic Metabolic Panel EDMN 05/10 12:56 Order name: Basic Metabolic Panel EDMN 05/10 12:56 Order name: CBC with Automated Diff EDMN 05/10 12:56 Order name: CBC with Automated Diff EDMN 05/10 12:56 Order name: Troponin I EDMN 05/10 10:09 Order name: EKG - Nurse/Tech; Complete Time: 11:21 [facility] 05/10 10:09 Order name: IV Saline Lock; Complete Time: 11:21 [facility] 05/10 10:09 Order name: Labs collected and sent; Complete Time: 11:21 [facility] 05/10 10:09 Order name: O2 Per Protocol; Complete Time: 11:21 [facility] 05/10 10:09 Order name: O2 Sat Monitoring; Complete Time: 11:21 [facility] Administered Medications: 13:10 Drug: NS 0.9% 500 ml Route: IV; Rate: bolus; Site: right antecubital; iw 13:10 Drug: Lactulose 30 grams Volume: 45 ml; Route: PO; iw Disposition: 15:29 Co-signature as Attending Physician, Irving Chacko MD I agree with the assessment and rn plan of care. Attestation: The patient's history, exam findings, diagnostics, and a summary of any interventions or procedures was reviewed in detail with Jake BRITO. Disposition Summary: 05/10/21 12:49 Hospitalization Ordered Hospitalization Status: Observation [facility] Provider: Bebeto Harley Location: Telemetry/MedSurg (observation) [facility] Condition: Stable [facility] Problem: new jmm Symptoms: are unchanged [facility] Bed/Room Type: Standard [facility] Room Assignment: 203(05/10/21 13:14) emili Diagnosis - Hypotension, unspecified jmm - Hepatic Encephalopathy jmm - Elevated Troponin [facility] Forms: - Medication Reconciliation Form jmm - SBAR form [facility] Signatures: Dispatcher [employer] EDMS Jake Trotter PA PA [facility] Angela Allen, DIANE CONTRERAS Irving Chacko MD MD rn Smirch, Shelby, RN RN Tonny Ramirez RN RN ja1 Corrections: (The following items were deleted from the chart) 12:05 11:23 SARS-COV-2 RT PCR+MOL.LAB.BRZ ordered. EDMS EDMS 12:05 11:23 Influenza Screen (A \T\ B)+BA.LAB.BRZ ordered. EDMS EDMS 13:14 12:49 [facility] emili
[2021-05-10] MEDS ORDERED: ONDANSETRON 4 MG/2 ML VIAL IV PRN (12:52)
[2021-05-10] MEDS ORDERED: ACETAMINOPHEN 500 MG TAB PO PRN (12:52)
[2021-05-10] MEDS ORDERED: LACTULOSE 20 GM/30 ML UCUP ONE (13:00)
[2021-05-10] MEDS ORDERED: NA CHLORIDE 0.9% 500 ML ONE (13:00)
[2021-05-10 14:33] VITALS: BMI 37.1
[2021-05-10] MEDS: NA CHLORIDE 0.9% 1,000 ML IV SCH (15:36)
--- NOTE | 2021-05-10 21:16 | P.HP ---
Certification for Inpatient Patient admitted to: Observation With expected LOS: <2 Midnights Patient will require the following post-hospital care: None Practitioner: I am a practitioner with admitting privileges, knowledge of patient current condition, hospital course, and medical plan of care. Services: Services provided to patient in accordance with Admission requirements found in Title 42 Section 412.3 of the Code of Federal Regulations Patient History Date of Service: 05/10/21 Primary Care Provider: Ortiz Reason for admission: confusion and hypotension.. History of Present Illness: office patient who came to the office today His blood pressure was 80/40s He was a bit confused so was directed to the ER. He has a history of alcoholic liver cirrhosis. 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 He was better after some fluids Decided to keep the patient for observations and continue fluid therapy Allergies lorazepam [From Ativan] Allergy (Severe, Verified 04/07/21 08:16) Shortness of breath Home Medications: Carvedilol [Coreg] 6.25 mg PO BIDWM 01/11/20 Folic Acid 1 mg PO DAILY 01/11/20 Pantoprazole [Protonix Tab*] 40 mg PO DAILY 01/11/20 Spironolactone 100 mg PO BID 01/11/20 Furosemide [Lasix*] 40 mg PO BID 09/18/20 Insulin -Regular Human [Novolin -R*] See Protocol SQ ACHS 09/18/20 Insulin Glargine,Hum.rec.anlog [Ivonne Solchristaar] 50 unit SQ DAILY 09/18/20 Rifaximin [Xifaxan] 550 mg PO BID 09/18/20 Trazodone [Desyrel*] 50 mg PO BEDTIME 09/18/20 Lactulose [Cephulac*] 30 ml PO TID #1 l 10/06/20 Metoprolol Tartrate [Lopressor*] 25 mg PO BID 6AM 6PM #60 tab 03/30/21 - Past Medical/Surgical History Has patient received pneumonia vaccine in the past: Yes Diabetic: Yes -: DM II -: HTN -: CHF -: Liver cirrhosis, -: Hyperlipidemia -: Obesity -: GERD -: Gastric varices -: H pylori gastritis -: Hernia repair Psychosocial/ Personal History: Patient has significant other. - Family History Father -: Diabetes Mother -: Liver disease - Social History Smoking Status: Former smoker Alcohol use: No CD- Drugs: No Caffeine use: Yes Review of Systems 10-point ROS is otherwise unremarkable General: Weakness, Other (confusion. ) Physical Examination - Vital Signs Temperature: 98.4 F Blood Pressure: 107/54 Pulse: 64 Respirations: 16 Pulse Ox (%): 98 - Physical Exam General: In no apparent distress, Oriented x2, Oriented x1 HEENT: Atraumatic, PERRLA, Mucous membr. moist/pink, EOMI, Sclerae nonicteric Neck: Supple, 2+ carotid pulse no bruit, No LAD, Without JVD or thyroid abnormality Respiratory: Clear to auscultation bilaterally, Normal air movement Cardiovascular: Regular rate/rhythm, Normal S1 S2 Gastrointestinal: Normal bowel sounds, No tenderness Musculoskeletal: No tenderness Integumentary: No rashes Neurological: Normal gait, Normal speech, Normal strength at 5/5 x4 extr, Normal tone, Normal affect Lymphatics: No axilla or inguinal lymphadenopathy - Studies Laboratory Data (last 24 hrs) 05/10/21 11:08: PT 15.3 H, INR 1.33 05/10/21 11:08: WBC 4.10 L, Hgb 9.4 L, Hct 30.0 L, Plt Count 72 L 05/10/21 11:08: Sodium 141, Potassium 3.7, BUN 8, Creatinine 1.02, Glucose 153 H, Magnesium 1.8, Total Bilirubin 1.5 H, AST 35, ALT 32, Alkaline Phosphatase 183 H Assessment and Plan - Problems (Diagnosis) (1) Altered mental status Current Visit: No Status: Acute Plan: currently improve Will continue his fluids and lactulose Qualifiers: Altered mental status type: delirium Qualified Code(s): R41.0 - Disorientation, unspecified (2) Alcoholic cirrhosis Current Visit: No Status: Chronic Plan: chronic cirrhosis will continue lactulose and xifamine for the patient Qualifiers: Ascites presence: with ascites Qualified Code(s): K70.31 - Alcoholic cirrhosis of liver with ascites (3) Diabetes mellitus Onset Date: 05/24/18 Current Visit: No Status: Chronic Plan: continue home meds. Will do a mild sliding scale for the patient Qualifiers: Diabetes mellitus type: type 2 Diabetes mellitus longterm insulin use: unspecified terminal system operator insulin use status Diabetes mellitus complication status: without complication Qualified Code(s): E11.9 - Type 2 diabetes mellitus without complications (4) HTN (hypertension) Onset Date: 05/24/18 Current Visit: No Status: Chronic - Advance Directives Does patient have a Living Will: No Does patient have a Durable POA for Healthcare: No - Code Status/Comfort Care Code Status Assessed: Yes Code Status: Full Code Physician Review: Patient Assessed, Agree with Above Assessment and Plan Critical Care: No Time Spent Managing Pts Care (In Minutes): 70
[2021-05-10 22:52] VITALS: O2SAT 98
[2021-05-11] MEDS: NA CHLORIDE 0.9% 1,000 ML IV SCH ×2 (00:55→10:44)
[2021-05-11] MEDS ORDERED: METOPROLOL TAR 25 MG TAB PO SCH (06:00)
[2021-05-11 06:04] LABS: Absolute Lymphocytes (CBC) 1.5 K/uL (0.7-4.9); Basophils % 1.2 % (0-1.3); Hematocrit 27.1 % (39.6-49.0); Lymphocytes % 38.5 % (15.3-44.8); MPV 8.2 fL (7.6-11.3); RBC Red Blood Cell Count 3.84 M/uL (4.33-5.43)
[2021-05-11 06:30] LABS: ALT/SGPT 28 U/L (12-78); AST/SGOT 32 U/L (15-37); Albumin 2.2 g/dL (3.4-5.0); Alkaline Phosphatase 152 U/L (45-117); BUN Blood Urea Nitrogen 7 mg/dL (7-18); Bicarbonate 25 mmol/L (21-32); Bilirubin Total 1.5 mg/dL (0.2-1.0); Glucose Level 97 mg/dL (74-106); Potassium 3.8 mmol/L (3.5-5.1); Sodium Level 142 mmol/L (136-145)
[2021-05-11 07:23] LABS: Anisocytosis 1+; Blood Morphology Comment NOTED (NOT SEEN); Platelet Estimate DECR; White Blood Cell Scan OK (OK)
[2021-05-11] MEDS ORDERED: PANTOPRAZOLE 40MG TABLET PO SCH (07:30)
[2021-05-11] MEDS ORDERED: carvediloL 3.125 MG TAB PO SCH (08:00)
[2021-05-11] MEDS ORDERED: Rifaximin 550 MG Tab PO SCH (09:00)
[2021-05-11] MEDS ORDERED: ASPIRIN EC 81 MG TAB PO SCH (09:00)
[2021-05-11] MEDS ORDERED: FOLIC ACID 1 MG TABLET PO SCH (09:00)
[2021-05-11] MEDS: LACTULOSE 20 GM/30 ML UCUP PO SCH ×2 (09:07→13:59)
--- NOTE | 2021-05-11 12:29 | EKG ---
Test Date: 2021-05-10 Test Time: 10:59:50 Sugar Refiner: KATE MEASUREMENT RESULTS: Intervals: Rate: 56 LA: 172 QRSD: 84 QT: 470 QTc: 453 Calvert: P: 39 LA: 172 QRS: -35 T: 29 INTERPRETIVE STATEMENTS: Sinus bradycardia with premature atrial complexes Left axis deviation Abnormal ECG Compared to ECG 03/29/2021 10:03:26 Atrial premature complex(es) now present Sinus rhythm no longer present ST (T wave) deviation no longer present Prolonged QT interval no longer present Electronically Signed On 05-11-21 12:25:54 NETWORK SUPPORT MANAGER by Nemesio Rachel
[2021-05-11 13:06] VITALS: BP 110/53; TEMP 97.9
--- NOTE | 2021-05-11 15:55 | P.DS ---
Admission Date: 05/10/21 Discharge Date: 05/11/21 Primary Care Provider: Ortiz Disposition: ROUTINE DISCHARGE Discharge Condition: GOOD Reason for Admission: confusion and hypotension.. - Problems (1) Altered mental status Current Visit: No Status: Acute Qualifiers: Altered mental status type: delirium Qualified Code(s): R41.0 - Disorientation, unspecified (2) Alcoholic cirrhosis Current Visit: No Status: Chronic Qualifiers: Ascites presence: with ascites Qualified Code(s): K70.31 - Alcoholic cirrhosis of liver with ascites (3) Diabetes mellitus Onset Date: 05/24/18 Current Visit: No Status: Chronic Qualifiers: Diabetes mellitus type: type 2 Diabetes mellitus ad terminal makeup operator insulin use: unspecified ad terminal makeup operator insulin use status Diabetes mellitus complication status: without complication Qualified Code(s): E11.9 - Type 2 diabetes mellitus without complications (4) HTN (hypertension) Onset Date: 05/24/18 Current Visit: No Status: Chronic Brief History of Present Illness: office patient who came to the office today His blood pressure was 80/40s He was a bit confused so was directed to the ER. He has a history of alcoholic liver cirrhosis. 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 He was better after some fluids Decided to keep the patient for observations and continue fluid therapy Hospital Course: Patient is doing well this morning. Much more alert. He has no complaints. blood pressure has improved. Will discharge him home and have him follow up in a week. Vital Signs/Physical Exam: Temp Pulse Resp BP Pulse Ox 97.9 F 55 17 110/53 L 99 05/11/21 12:00 05/11/21 12:00 05/11/21 12:00 05/11/21 12:00 05/11/21 12:00 General: Alert, In no apparent distress HEENT: Atraumatic, PERRLA, EOMI Neck: Supple, JVD not distended Respiratory: Clear to auscultation bilaterally, Normal air movement Cardiovascular: Regular rate/rhythm, Normal S1 S2 Gastrointestinal: Normal bowel sounds, No tenderness Musculoskeletal: No tenderness Integumentary: No rashes Neurological: Normal speech, Normal tone, Normal affect Lymphatics: No axilla or inguinal lymphadenopathy Laboratory Data at Discharge: WBC 3.90 K/uL (4.3-10.9) L 05/11/21 05:55 Hgb 8.8 g/dL (13.6-17.9) L 05/11/21 05:55 Hct 27.1 % (39.6-49.0) L 05/11/21 05:55 Plt Count 63 K/uL (152-406) L 05/11/21 05:55 PT 15.3 SECONDS (9.5-12.5) H 05/10/21 11:08 INR 1.33 05/10/21 11:08 Sodium 142 mmol/L (136-145) 05/11/21 05:55 Potassium 3.8 mmol/L (3.5-5.1) 05/11/21 05:55 BUN 7 mg/dL (7-18) 05/11/21 05:55 Creatinine 0.75 mg/dL (0.55-1.3) 05/11/21 05:55 Glucose 97 mg/dL (74-106) 05/11/21 05:55 Magnesium 1.8 mg/dL (1.8-2.4) 05/10/21 11:08 Total Bilirubin 1.5 mg/dL (0.2-1.0) H 05/11/21 05:55 AST 32 U/L (15-37) 05/11/21 05:55 ALT 28 U/L (12-78) 05/11/21 05:55 Alkaline Phosphatase 152 U/L (45-117) H 05/11/21 05:55 Troponin I 0.08 ng/mL (0.0-0.045) H 05/10/21 15:00 Home Medications: Carvedilol [Coreg] 6.25 mg PO BIDWM 01/11/20 Folic Acid 1 mg PO DAILY 01/11/20 Pantoprazole [Protonix Tab*] 40 mg PO DAILY 01/11/20 Spironolactone 100 mg PO BID 01/11/20 Furosemide [Lasix*] 40 mg PO BID 09/18/20 Insulin -Regular Human [Novolin -R*] See Protocol SQ ACHS 09/18/20 Insulin Glargine,Hum.rec.anlog [Touwilma Solostar] 50 unit SQ DAILY 09/18/20 Rifaximin [Xifaxan] 550 mg PO BID 09/18/20 Trazodone [Desyrel*] 50 mg PO BEDTIME 09/18/20 Lactulose [Cephulac*] 30 ml PO TID #1 l 10/06/20 Metoprolol Tartrate [Lopressor*] 25 mg PO BID 6AM 6PM #60 tab 03/30/21 Diet: low prot Activity: Ad jasmin Followup: Belén Alcantar FNP BC [ALLIED HEALTH PROFESSIONAL] - 1 Week Physician Review: Patient Assessed, Agree with Above Assessment and Plan Time spent managing pt's care (in minutes): 30
== END 2021-05-11 16:37 | disposition home or self-care (01) ==
LOC: ER 10:00 → ERHOLD 12:51 → 2ND 14:04
PROVIDERS: ADMIT Internal Medicine; ATTEND Internal Medicine
DX: R41.82 Altered mental status, unspecified (principal); K70.31 Alcoholic cirrhosis of liver with ascites; I11.0 Hypertensive heart disease with heart failure; I50.9 Heart failure, unspecified; E11.9 Type 2 diabetes mellitus without complications; Z20.822 Contact with and (suspected) exposure to COVID-19
CPT/HCPCS: 93005; 85025 ×2; 80048; 36415; 82140 ×2; 83735; 85610; 82947 ×5; 80076; 83605; 84484 ×2; 80053; 84145; 83880; 0240U; 71045; 99283; J7040; J7030 ×3; G0378 ×3

== ENCOUNTER 2021-06-21 08:19 | Inpatient (IN) | payer OTHER ==
--- OUTSIDE RECORDS SUMMARY | 2021-06-21 08:33 | XMS REPORT | Continuity of Care Document ---
:1955 Author Organization [facility] t Address [address] [place] [address] [address] [place] [address] Care Team Providers Name Role Phone Kimberley GOMEZ Primary Care Physician Carmine Salvador Attending Clinician Unavailable LOUIS Attending Clinician Unavailable Kimberley GOMEZ Attending Clinician QUAN WASHINGTON Attending Clinician Unavailable Attending Clinician Unavailable Singer CAI Attending Clinician [...] Unavailable MONAE AN Attending Clinician Unavailable RAMAN ANAYA Attending Clinician Unavailable SHANNON VILLEGAS Attending Clinician Unavailable Yumiko Rod MD Attending Clinician BUBBA LI Attending Clinician Unavailable LOUIS Admitting Clinician Unavailable Admitting Clinician Unavailable QUAN WASHINGTON Admitting Clinician Unavailable COMPA Admitting Clinician Unavailable MONAE AN Admitting Clinician Unavailable BUBBA LI Admitting Clinician Unavailable Payers Payer Name Policy Type Policy Number Effective Date Expiration Date [employer] MEDICARE PART A [id number] 2018 \\T\\ B 00:00:00 MEDICARE A B [id number] 2018 00:00:00 COVID VACCINE [id number] 2020-06-28 ADMIN / TESTING 00:00:00 Problems Condition Condition Condition Status Onset Resolution Last Treating Co mments Source Name Details Category Date Date Treatment Clinician Date Need for Need for Disease Active 2018-05 Unive rs hepatitis hepatitis 2-24 ity of C C 00:00: [place] screening screening 00 Medi jeevan test test Branch Type 2 Type 2 Disease Active 2018-05 Univers diabetes diabetes 2-20 ity of mellitus mellitus 00:00: [place] without without 00 Medical complicati complicati Br anch on, on, without without long-term long-term current current use of use of insulin insulin 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 2-20 it y of ia ia 00:00: [place] 00 Medical Branch Gastroesop Gastroesop Disease Active 2018-05 U nivers hageal hageal 2-20 ity of reflux reflux 00:00: [place] disease disease 00 Medical without without Branch esophagiti esophagiti s s Wheezing Wheezing Disease Active 2018-05 Unive rs 2-20 ity of 00:00: [place] 00 Medical Branch Urticaria Urticaria Disease Active 2018-05 Uni vers 2-20 ity of 00:00: [place] 00 Medical Branch Primary Primary Disease Active 2018-05 Univers insomnia insomnia 2-20 ity of 00:00: [place] 00 Medical Branch Psoriasifo Psoriasifo Disease Active 2018-05 U nivers rm rm 2-20 ity [place] dermatitis [place] Decreased Decreased Disease Active Uni vers platelet platelet 4-23 ity of count count 00:00: [place] 00 Medical Branch Ventral Ventral Disease Active Univers hernia hernia 2-05 ity of 00:00: [place] 00 Medical Branch 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 Added automatic ally from request for surgery [id number] Ventral Ventral Disease Active Overview: Univ ers hernia hernia 06-26 Added ity of without without 00:00: automatic [place] obstructio obstructio 00 ally from Medical n or n or request Branch gangrene gangrene for surgery [id number] Screening Screening Disease Active 2017-05 Overview: Univers for for 07-25 Formattin ity of colorectal colorectal 00:00: g of this [place] cancer cancer 00 note Medical might be Branch different from the original. Added automatic ally from request for surgery [id number] Psoriasis Psoriasis Disease Active 2017-05 Uni vers 1-14 ity of 00:00: [place] [id number] Medical Branch Essential Essential Disease Active 2017-05 Uni vers hypertensi hypertensi 1-14 it y of on on 00:00: [place] [facility] Obesity Obesity Disease Active Univers (BMI (BMI 4-23 ity of 30-39.9) 30-39.9) 00:00: [place] 00 Medical Branch Exomphalos Exomphalos Disease Active U nivers 1-07 ity of 00:00: [place] [facility] Allergies, Adverse Reactions, Alerts Allergy Allergy Status Severity Reaction(s) Onset Inactive Treating Comm ents Source Name Type Date Date Clinician NO KNOWN Allergy Active [facility] NO KNOWN Drug Active [facility] ALLERGIE Class ity of S [facility] Social History Social Habit Start Date Stop Date Quantity Comments Source Exposure to Not sure University of SARS-CoV-2 [place] Medical (event) Branch Alcohol intake 2021-04-01 2021-04-01 Current University of 00:00:00 00:00:00 non-drinker of [facility] alcohol (finding) Branch Tobacco use and 2018-06-06 2018-06-06 Never used Universit y of exposure 00:00:00 00:00:00 [facility] History of 2017-06-06 Cigarette Smoker Universi ty of tobacco use 00:00:00 [facility] Sex [birth year] Universit y of 00:00:00 00:00:00 [facility] Smoking Status Start Date Stop Date Source Former smoker 2018-06-06 00:00:00 2018-06-06 00:00:00 Universi ty [facility] Unknown if ever smoked Universit y [facility] Medications Ordered Filled Start Stop Current Ordering Indication Dosage Frequency Signature Comments Components Source Medication Medication Date Date Medication? Clinician (SIG) Name Name FUROSEMIDE 2020-05 Yes [id number] TAKE ONE Univers 40 mg 0-20 (1) TABLET ity of tablet 00:00: BY MOUTH [place] TWICE Medical DAILY IN [place] THE MORNING AND EVENING FUROSEMIDE 2020-05 Yes [id number] TAKE ONE Univers 40 mg 0-20 (1) TABLET ity of tablet 00:00: BY MOUTH [place] TWICE Medical DAILY IN [place] THE MORNING AND EVENING FUROSEMIDE 2020-05 Yes [id number] TAKE ONE Univers 40 mg 0-20 (1) TABLET ity of tablet 00:00: BY MOUTH [place] TWICE Medical DAILY IN [place] THE MORNING AND EVENING FUROSEMIDE 2020-05 Yes [id number] TAKE ONE Univers 40 mg 0-20 (1) TABLET ity of tablet 00:00: BY MOUTH [place] TWICE Medical DAILY IN [place] THE MORNING AND EVENING PANTOPRAZOL 2020-05 Yes [id number] Take 1 Univers E 40 mg EC 0-19 tablet by ity of tablet 00:00: mouth once [place] daily Medical Branch PANTOPRAZOL 2020-05 Yes [id number] Take 1 Univers E 40 mg EC 0-19 tablet by ity of tablet 00:00: mouth once [place] daily Medical Branch PANTOPRAZOL 2020-05 Yes [id number] Take 1 Univers E 40 mg EC 0-19 tablet by ity of tablet 00:00: mouth once [place] daily Medical Branch PANTOPRAZOL 2020-05 Yes [id number] Take 1 Univers E 40 mg EC 0-19 tablet by ity of tablet 00:00: mouth once [place] daily Medical Branch PANTOPRAZOL 2020-05 Yes [id number] Take 1 Univers E 40 mg EC 0-19 tablet by ity of tablet 00:00: mouth once [place] daily Medical Branch rifAXIMin Yes [id number] 550mg Take 1 Univers 550 mg 5-19 tablet by ity of tablet 00:00: mouth 2 [place] (two) Medical times Branch daily. furosemide Yes [id number] 40mg Take 1 Univers 40 mg 5-19 tablet by ity of tablet 00:00: mouth 00 every Medical morning Branch and evening. hydrOXYzine 0 Yes [id number] 50mg Take 1 U nivers 50 mg 5-19 tablet by ity of tablet 00:00: mouth 3 (three) Medical times Branch daily as needed for Itching. lisinopriL 0 Yes [id number] 20mg Take 1 U nivers 20 mg 5-19 tablet by ity of tablet 00:00: mouth daily. Medical Branch spironolact 0 Yes [id number] 25mg Take 1 Univers one 25 mg 5-19 tablet by ity o f tablet 00:00: mouth 2 (two) Medical times Branch daily. carvediloL Yes [id number] 3.125mg Take 1 Univers 3.125 mg 5-19 tablet by ity of tablet 00:00: mouth (two) Medical times Branch daily with meals. Pitavastati Yes [id number] 2mg Take 2 mg Univers n (LIVALO) 5-19 by mouth ity o f 2 mg Tab 00:00: daily. Medical Branch pantoprazol 0 Yes [id number] 40mg Take 1 Univers e 40 mg EC 5-19 tablet by ity of tablet 00:00: mouth daily. Medical Branch metFORMIN Yes [id number] 500mg Take 1 Univers 500 mg 5-19 tablet by ity of tablet 00:00: mouth 2 (two) Medical times Branch daily with meals. Blood-Gluco Yes [id number] Use BID, Univers se Meter 5-19 DX E11.9 ity of (ACCU-CHEK 00:00: ([facility] GUIDE 00 upon Medical GLUCOSE insurance Branch METER) Misc approval) ACCU-CHEK GUIDE blood sugar 2020-0 Yes [id number] Use BID, Univers diagnostic 5-19 DX E11.9 ity o f (ACCU-CHEK 00:00: ([facility] GUIDE TEST 00 upon Medical STRIPS) insurance Branch strip approval) rifAXIMin 0 Yes [id number] 550mg Take 1 Univers 550 mg 5-19 tablet by ity of tablet 00:00: mouth 2 (two) Medical times Branch daily. furosemide 2021-0 Yes [id number] 40mg Take 1 Univers 40 mg 5-19 tablet by ity of tablet 00:00: mouth 00 every Medical morning Branch and evening. hydrOXYzine 0 Yes [id number] 50mg Take 1 U nivers 50 mg 5-19 tablet by ity of tablet 00:00: mouth 3 (three) Medical times Branch daily as needed for Itching. lisinopriL 0 Yes [id number] 20mg Take 1 U nivers 20 mg 5-19 tablet by ity of tablet 00:00: mouth 00 daily. Medical Branch spironolact 0 Yes [id number] 25mg Take 1 Univers one 25 mg 5-19 tablet by ity o f tablet 00:00: mouth 2 (two) Medical times Branch daily. carvediloL Yes [id number] 3.125mg Take 1 Univers 3.125 mg 5-19 tablet by ity of tablet 00:00: mouth (two) Medical times Branch daily with meals. Pitavastati Yes [id number] 2mg Take 2 mg Univers n (LIVALO) 5-19 by mouth ity o f 2 mg Tab 00:00: daily. Medical Branch pantoprazol 0 Yes [id number] 40mg Take 1 Univers e 40 mg EC 5-19 tablet by ity of tablet 00:00: mouth 00 daily. Medical Branch metFORMIN Yes [id number] 500mg Take 1 Univers 500 mg 5-19 tablet by ity of tablet 00:00: mouth (two) Medical times Branch daily with meals. Blood-Gluco Yes [id number] Use BID, Univers se Meter 5-19 DX E11.9 ity of (ACCU-CHEK 00:00: (Brand [place] GUIDE 00 upon Medical GLUCOSE insurance Branch METER) Misc approval) ACCU-CHEK GUIDE blood sugar 2020-0 Yes [id number] Use BID, Univers diagnostic 5-19 DX E11.9 ity o f (ACCU-CHEK 00:00: ([employer] [place] GUIDE TEST 00 upon Medical STRIPS) insurance Branch strip approval) rifAXIMin 0 Yes [id number] 550mg Take 1 Univers 550 mg 5-19 tablet by ity of tablet 00:00: mouth 2 (two) Medical times Branch daily. furosemide 2020-0 Yes [id number] 40mg Take 1 Univers 40 mg 5-19 tablet by ity of tablet 00:00: mouth 00 every Medical morning Branch and evening. hydrOXYzine 2020-0 Yes [id number] 50mg Take 1 U nivers 50 mg 5-19 tablet by ity of tablet 00:00: mouth 3 (three) Medical times Branch daily as needed for Itching. lisinopriL 0 Yes [id number] 20mg Take 1 U nivers 20 mg 5-19 tablet by ity of tablet 00:00: mouth 00 daily. Medical Branch spironolact 2020-0 Yes [id number] 25mg Take 1 Univers one 25 mg 5-19 tablet by ity o f tablet 00:00: mouth (two) Medical times Branch daily. carvediloL Yes [id number] 3.125mg Take 1 Univers 3.125 mg 5-19 tablet by ity of tablet 00:00: mouth (two) Medical times Branch daily with meals. Pitavastati Yes [id number] 2mg Take 2 mg Univers n (LIVALO) 5-19 by mouth ity o f 2 mg Tab 00:00: daily. Medical Branch pantoprazol 2020-0 Yes [id number] 40mg Take 1 Univers e 40 mg EC 5-19 tablet by ity of tablet 00:00: mouth daily. Medical Branch metFORMIN 0 Yes [id number] 500mg Take 1 Univers 500 mg 5-19 tablet by ity of tablet 00:00: mouth (two) Medical times Branch daily with meals. Blood-Gluco Yes [id number] Use BID, Univers se Meter 5-19 DX E11.9 ity of (ACCU-CHEK 00:00: ([employer] [place] GUIDE 00 upon Medical GLUCOSE insurance Branch METER) Misc approval) ACCU-CHEK GUIDE blood sugar 2020-0 Yes [id number] Use BID, Univers diagnostic 5-19 DX E11.9 ity o f (ACCU-CHEK 00:00: (Brand [place] GUIDE TEST 00 upon Medical STRIPS) insurance Branch strip approval) rifAXIMin 0 Yes [id number] 550mg Take 1 Univers 550 mg 5-19 tablet by ity of tablet 00:00: mouth 2 (two) Medical times Branch daily. furosemide 2020-0 Yes [id number] 40mg Take 1 Univers 40 mg 5-19 tablet by ity of tablet 00:00: mouth 00 every Medical morning Branch and evening. hydrOXYzine 2020-0 Yes [id number] 50mg Take 1 U nivers 50 mg 5-19 tablet by ity of tablet 00:00: mouth 3 (three) Medical times Branch daily as needed for Itching. lisinopriL 2020-0 Yes [id number] 20mg Take 1 U nivers 20 mg 5-19 tablet by ity of tablet 00:00: mouth daily. Medical Branch spironolact 0 Yes [id number] 25mg Take 1 Univers one 25 mg 5-19 tablet by ity o f tablet 00:00: mouth (two) Medical times Branch daily. carvediloL Yes [id number] 3.125mg Take 1 Univers 3.125 mg 5-19 tablet by ity of tablet 00:00: mouth 2 (two) Medical times Branch daily with meals. Pitavastati Yes [id number] 2mg Take 2 mg Univers n (LIVALO) 5-19 by mouth ity o f 2 mg Tab 00:00: daily. Medical Branch pantoprazol 2020-0 Yes [id number] 40mg Take 1 Univers e 40 mg EC 5-19 tablet by ity of tablet 00:00: mouth daily. Medical Branch metFORMIN 0 Yes [id number] 500mg Take 1 Univers 500 mg 5-19 tablet by ity of tablet 00:00: mouth 2 (two) Medical times Branch daily with meals. Blood-Gluco 2020- Yes [id number] Use BID, Univers se Meter 5-19 DX E11.9 ity of (ACCU-CHEK 00:00: (Brand [place] GUIDE 00 upon [facility] GLUCOSE insurance Branch METER) Misc approval) ACCU-CHEK GUIDE blood sugar 2020-0 Yes [id number] Use BID, Univers diagnostic 5-19 DX E11.9 ity o f (ACCU-CHEK 00:00: (Brand [place] GUIDE TEST 00 upon Medical STRIPS) insurance Branch strip approval) rifAXIMin 2020-0 Yes [id number] 550mg Take 1 Univers 550 mg 5-19 tablet by ity of tablet 00:00: mouth 2 (two) Medical times Branch daily. furosemide 2020-0 Yes [id number] 40mg Take 1 Univers 40 mg 5-19 tablet by ity of tablet 00:00: mouth 00 every Medical morning Branch and evening. hydrOXYzine 2020-0 Yes [id number] 50mg Take 1 U nivers 50 mg 5-19 tablet by ity of tablet 00:00: mouth 3 (three) Medical times Branch daily as needed for Itching. lisinopriL 2020-0 Yes [id number] 20mg Take 1 U nivers 20 mg 5-19 tablet by ity of tablet 00:00: mouth 00 daily. Medical Branch spironolact 2020-0 Yes [id number] 25mg Take 1 Univers one 25 mg 5-19 tablet by ity o f tablet 00:00: mouth 2 (two) Medical times Branch daily. carvediloL 0 Yes [id number] 3.125mg Take 1 Univers 3.125 mg 5-19 tablet by ity of tablet 00:00: mouth 2 (two) Medical times Branch daily with meals. Pitavastati 0 Yes [id number] 2mg Take 2 mg Univers n (LIVALO) 5-19 by mouth ity o f 2 mg Tab 00:00: daily. Medical Branch metFORMIN 2020-0 Yes [id number] 500mg Take 1 Univers 500 mg 5-19 tablet by ity of tablet 00:00: mouth 2 (two) Medical times Branch daily with meals. Blood-Gluco 2020-0 Yes [id number] Use BID, Univers se Meter 5-19 DX E11.9 ity of (ACCU-CHEK 00:00: (Brand [place] GUIDE 00 upon Medical GLUCOSE insurance Branch METER) Misc approval) ACCU-CHEK GUIDE blood sugar 2020-0 Yes [id number] Use BID, Univers diagnostic 5-19 DX E11.9 ity o f (ACCU-CHEK 00:00: (Brand [place] GUIDE TEST 00 upon Medical STRIPS) insurance Branch strip approval) rifAXIMin 2020-0 Yes [id number] 550mg Take 1 Univers 550 mg 5-19 tablet by ity of tablet 00:00: mouth (two) Medical times Branch daily. hydrOXYzine 2020-0 Yes [id number] 50mg Take 1 U nivers 50 mg 5-19 tablet by ity of tablet 00:00: mouth 3 (three) Medical times Branch daily as needed for Itching. lisinopriL 0 Yes [id number] 20mg Take 1 U nivers 20 mg 5-19 tablet by ity of tablet 00:00: mouth daily. Medical Branch spironolact 2020-0 Yes [id number] 25mg Take 1 Univers one 25 mg 5-19 tablet by ity o f tablet 00:00: mouth (two) Medical times Branch daily. carvediloL 2020-0 Yes [id number] 3.125mg Take 1 Univers 3.125 mg 5-19 tablet by ity of tablet 00:00: mouth (two) Medical times Branch daily with meals. Pitavastati Yes [id number] 2mg Take 2 mg Univers n (LIVALO) 5-19 by mouth ity o f 2 mg Tab 00:00: daily. Medical Branch metFORMIN 2020-0 Yes [id number] 500mg Take 1 Univers 500 mg 5-19 tablet by ity of tablet 00:00: mouth (two) Medical times Branch daily with meals. Blood-Gluco Yes [id number] Use BID, Univers se Meter 5-19 DX E11.9 ity of (ACCU-CHEK 00:00: (Brand [place] GUIDE 00 upon Medical GLUCOSE insurance Branch METER) Misc approval) ACCU-CHEK GUIDE blood sugar 2020-0 Yes [id number] Use BID, Univers diagnostic 5-19 DX E11.9 ity o f (ACCU-CHEK 00:00: (Brand [place] GUIDE TEST 00 upon Medical STRIPS) insurance Branch strip approval) rifAXIMin 2020-0 Yes [id number] 550mg Take 1 Univers 550 mg 5-19 tablet by ity of tablet 00:00: mouth 2 (two) Medical times Branch daily. hydrOXYzine 2020-0 Yes [id number] 50mg Take 1 U nivers 50 mg 5-19 tablet by ity of tablet 00:00: mouth 3 (three) Medical times Branch daily as needed for Itching. lisinopriL 2020-0 Yes [id number] 20mg Take 1 U nivers 20 mg 5-19 tablet by ity of tablet 00:00: mouth 00 daily. Medical Branch spironolact 2020-0 Yes [id number] 25mg Take 1 Univers one 25 mg 5-19 tablet by ity o f tablet 00:00: mouth 2 (two) Medical times Branch daily. carvediloL 2020-0 Yes [id number] 3.125mg Take 1 Univers 3.125 mg 5-19 tablet by ity of tablet 00:00: mouth 2 (two) Medical times Branch daily with meals. Pitavastati 2020- Yes [id number] 2mg Take 2 mg Univers n (LIVALO) 5-19 by mouth ity o f 2 mg Tab 00:00: daily. Medical Branch metFORMIN 2020-0 Yes [id number] 500mg Take 1 Univers 500 mg 5-19 tablet by ity of tablet 00:00: mouth 2 (two) Medical times Branch daily with meals. Blood-Gluco Yes [id number] Use BID, Univers se Meter 5-19 DX E11.9 ity of (ACCU-CHEK 00:00: (Brand [place] GUIDE 00 upon Medical GLUCOSE insurance Branch METER) Misc approval) ACCU-CHEK GUIDE blood sugar 2020-0 Yes [id number] Use BID, Univers diagnostic 5-19 DX E11.9 ity o f (ACCU-CHEK 00:00: (Brand [place] GUIDE TEST 00 upon Medical STRIPS) insurance Branch strip approval) rifAXIMin 2020-0 Yes [id number] 550mg Take 1 Univers 550 mg 5-19 tablet by ity of tablet 00:00: mouth 2 (two) Medical times Branch daily. hydrOXYzine 2020-0 Yes [id number] 50mg Take 1 U nivers 50 mg 5-19 tablet by ity of tablet 00:00: mouth 3 (three) Medical times Branch daily as needed for Itching. lisinopriL 2020-0 Yes [id number] 20mg Take 1 U nivers 20 mg 5-19 tablet by ity of tablet 00:00: mouth 00 daily. Medical Branch spironolact 2020-0 Yes [id number] 25mg Take 1 Univers one 25 mg 5-19 tablet by ity o f tablet 00:00: mouth 2 (two) Medical times Branch daily. carvediloL 2020-0 Yes [id number] 3.125mg Take 1 Univers 3.125 mg 5-19 tablet by ity of tablet 00:00: mouth (two) Medical times Branch daily with meals. Pitavastati 2020-0 Yes [id number] 2mg Take 2 mg Univers n (LIVALO) 5-19 by mouth ity o f 2 mg Tab 00:00: daily. Medical Branch metFORMIN 2020-0 Yes [id number] 500mg Take 1 Univers 500 mg 5-19 tablet by ity of tablet 00:00: mouth (two) Medical times Branch daily with meals. Blood-Gluco 2020- Yes [id number] Use BID, Univers se Meter 5-19 DX E11.9 ity of (ACCU-CHEK 00:00: ([employer] [place] GUIDE 00 upon Medical GLUCOSE insurance Branch METER) Misc approval) ACCU-CHEK GUIDE blood sugar 2020-0 Yes [id number] Use BID, Univers diagnostic 5-19 DX E11.9 ity o f (ACCU-CHEK 00:00: (Brand [place] GUIDE TEST 00 upon Medical STRIPS) insurance Branch strip approval) rifAXIMin 2020-0 Yes [id number] 550mg Take 1 Univers 550 mg 5-19 tablet by ity of tablet 00:00: mouth (two) Medical times Branch daily. hydrOXYzine 2020-0 Yes [id number] 50mg Take 1 U nivers 50 mg 5-19 tablet by ity of tablet 00:00: mouth 3 (three) Medical times Branch daily as needed for Itching. lisinopriL 2020-0 Yes [id number] 20mg Take 1 U nivers 20 mg 5-19 tablet by ity of tablet 00:00: mouth daily. Medical Branch spironolact 2020-0 Yes [id number] 25mg Take 1 Univers one 25 mg 5-19 tablet by ity o f tablet 00:00: mouth (two) Medical times Branch daily. carvediloL 2020-0 Yes [id number] 3.125mg Take 1 Univers 3.125 mg 5-19 tablet by ity of tablet 00:00: mouth (two) Medical times Branch daily with meals. Pitavastati Yes [id number] 2mg Take 2 mg Univers n (LIVALO) 5-19 by mouth ity o f 2 mg Tab 00:00: daily. Medical Branch metFORMIN Yes [id number] 500mg Take 1 Univers 500 mg 5-19 tablet by ity of tablet 00:00: mouth 2 (two) Medical times Branch daily with meals. Blood-Gluco Yes [id number] Use BID, Univers se Meter 5-19 DX E11.9 ity of (ACCU-CHEK 00:00: ([facility] GUIDE 00 upon Medical GLUCOSE insurance Branch METER) Misc approval) ACCU-CHEK GUIDE blood sugar Yes [id number] Use BID, Univers diagnostic 5-19 DX E11.9 ity o f (ACCU-CHEK 00:00: ([facility] [place] GUIDE TEST 00 upon Medical STRIPS) insurance Branch strip approval) furosemide 2020- No [id number] 40mg Take 1 Univers 40 mg 5-19 10-20 tablet by ity of tablet 00:00: 00:00 mouth [place] 00 :00 every Medical morning Branch and evening. pantoprazol 2020- No [id number] 40mg Take 1 Univers e 40 mg EC 5-19 10-19 tablet by ity of tablet 00:00: 00:00 mouth [place] 00 :00 daily. Medical Branch azithromyci Yes [id number] 250mg Take 1 Univers n 3-24 tablet by ity of (ZITHROMAX 00:00: mouth [place] Z-MERCY) 250 00 daily. Medical mg tablet Take 500 Branch mg day 1, then 250 mg days 2 to 5. azithromyci 2020- No [id number] 250mg Take 1 Univers n 3-24 05-19 tablet by ity of (ZITHROMAX 00:00: 00:00 mouth [place] Z-[facility]CY) 250 00 :00 daily. Medical mg tablet Take 500 Branch mg day 1, then 250 mg days 2 to 5. azithromyci 2020- No [id number] 250mg Take 1 Univers n 3-24 05-19 tablet by ity of (ZITHROMAX 00:00: 00:00 mouth [place] Z-[facility]CY) 250 00 :00 daily. Medical mg tablet Take 500 Branch mg day 1, then 250 mg days 2 to 5. LISINOPRIL 2021-0 Yes [id number] Take 1 U nivers 20 mg 3-09 tablet by ity of tablet 00:00: mouth once [place] 00 daily Medical Branch LISINOPRIL 2021-0 Yes [id number] Take 1 U nivers 20 mg 3-09 tablet by ity of tablet 00:00: mouth once [place] daily Medical Branch LISINOPRIL 2021-0 Yes [id number] Take 1 U nivers 20 mg 3-09 tablet by ity of tablet 00:00: mouth once [place] daily Medical Branch LISINOPRIL 2021-0 2021- No [id number] Take 1 Univers 20 mg 3-09 05-19 tablet by ity of tablet 00:00: 00:00 mouth [place] 00 :[place] daily Medical Branch LISINOPRIL 2021-0 2021- No [id number] Take 1 Univers 20 mg 3-09 05-19 tablet by ity of tablet 00:00: 00:00 [place] 00 :00 daily Medical Branch clobetasoL 2021-0 Yes [id number] Apply to Univers 0.05 % 2-09 area(s) 2 ity of cream 00:00: (two) [place] times Medical daily. Branch clobetasoL 1-0 Yes [id number] Apply to Univers 0.05 % 2-09 area(s) 2 ity of cream 00:00: (two) [place] times Medical daily. Branch clobetasoL 2021-0 Yes [id number] Apply to Univers 0.05 % 2-09 area(s) 2 ity of cream 00:00: (two) [place] times Medical daily. Branch clobetasoL 2021-0 Yes [id number] Apply to Univers 0.05 % 2-09 area(s) 2 ity of cream 00:00: (two) [place] times Medical daily. Branch clobetasoL 2021-0 Yes [id number] Apply to Univers 0.05 % 2-09 area(s) 2 ity of cream 00:00: (two) [place] 00 times Medical daily. Branch clobetasoL 2021-0 Yes [id number] Apply to Univers 0.05 % 2-09 area(s) 2 ity of cream 00:00: (two) [place] 00 times Medical daily. Branch clobetasoL 1-0 Yes [id number] Apply to Univers 0.05 % 2-09 area(s) 2 ity of cream 00:00: (two) [place] 00 times Medical daily. Branch clobetasoL 1-0 Yes [id number] Apply to Univers 0.05 % 2-09 area(s) 2 ity of cream 00:00: (two) [place] 00 times Medical daily. Branch clobetasoL 1-0 Yes [id number] Apply to Univers 0.05 % 2-09 area(s) 2 ity of cream 00:00: (two) [place] 00 times Medical daily. Branch clobetasoL 1-0 Yes [id number] Apply to Univers 0.05 % 2-09 area(s) 2 ity of cream 00:00: (two) [place] 00 times Medical daily. Branch clobetasoL 1-0 Yes [id number] Apply to Univers 0.05 % 2-09 area(s) 2 ity of cream 00:00: (two) [place] 00 times Medical daily. Branch clobetasoL 1-0 Yes [id number] Apply to Univers 0.05 % 2-09 area(s) 2 ity of cream 00:00: (two) [place] 00 times Medical daily. Branch clobetasoL 1-0 Yes [id number] Apply to Univers 0.05 % 2-09 area(s) 2 ity of cream 00:00: (two) [place] 00 times Medical daily. [place] azithromyci 2020- No 500mg 500 mg, IV [...] ity of 1,000 mg in 03:45: 03:27 [employer], [place] NaCl 0.9% 00 :00 ONCE, 1 Medical (NS) 50 mL dose, Alyssa Azeem ch MINI-BAG 06/25/20 at 2145, 50 mL
Reas on for Anti-Infec tive: Documented Infection< br>Documen lisa Infection Site: Respirator y
Durat ion of Therapy: 7 days foLIC acid 2020-0 Yes [id number] 1mg Take 1 Univers 1 mg tablet 1-28 tablet by ity of 00:00: mouth [place] 00 daily. Medical Branch foLIC acid 2020-0 Yes [id number] 1mg Take 1 Univers 1 mg tablet 1-28 tablet by ity of 00:00: mouth [place] 00 daily. [facility] Branch foLIC acid 2020-0 Yes [id number] 1mg Take 1 [facility] 1 mg tablet 1-28 tablet by ity of 00:00: mouth [place] 00 daily. Medical Branch foLIC acid 2020-0 Yes [id number] 1mg Take 1 [facility] 1 mg tablet 1-28 tablet by ity of 00:00: mouth [place] 00 daily. Medical Branch foLIC acid 2020-0 Yes [id number] 1mg Take 1 [facility] 1 mg tablet 1-28 tablet by ity of 00:00: mouth [place] 00 daily. Medical Branch foLIC acid 2020-0 Yes [id number] 1mg Take 1 [facility] 1 mg tablet 1-28 tablet by ity of 00:00: mouth [place] 00 daily. Medical Branch foLIC acid 2020-0 Yes [id number] 1mg Take 1 [facility] 1 mg tablet 1-28 tablet by ity of 00:00: mouth [place] 00 daily. Medical Branch foLIC acid 2020-0 Yes [id number] 1mg Take 1 [facility] 1 mg tablet 1-28 tablet by ity of 00:00: mouth [place] 00 daily. Medical Branch foLIC acid 2020-0 Yes [id number] 1mg Take 1 [facility] 1 mg tablet 1-28 tablet by ity of 00:00: mouth [place] 00 daily. Medical Branch foLIC acid 2020-0 Yes [id number] 1mg Take 1 [facility] 1 mg tablet 1-28 tablet by ity of 00:00: mouth [place] 00 daily. Medical Branch foLIC acid 2020-0 Yes [id number] 1mg Take 1 [facility] 1 mg tablet 1-28 tablet by ity of 00:00: mouth [place] 00 daily. Medical Branch foLIC acid Yes [id number] 1mg Take 1 [facility] 1 mg tablet 1-28 tablet by ity of 00:00: mouth [place] 00 daily. Medical Branch foLIC acid Yes [id number] 1mg Take 1 [facility] 1 mg tablet -28 tablet by ity of 00:00: mouth 00 daily. Medical Branch foLIC acid Yes [id number] 1mg Take 1 [facility] 1 mg tablet -28 tablet by ity of 00:00: mouth 00 daily. Medical Branch amoxicillin 2020- No [id number] 500mg Take 1 [facility] -pot 1-28 02-05 tablet by ity of clavulanate 00:00: 05:59 mouth [place] 500 mg 00 :00 every 8 Medical 500-125 mg (eight) Branch tablet hours for 7 days. metFORMIN 2018-05 Yes [id number] 500mg Take 1 [facility] 500 mg 2-20 tablet by ity of tablet 00:00: mouth (two) Medical times Branch daily with meals. carvedilol 2018-05 Yes [id number] 3.125mg Take 1 [facility] 3.125 mg 2-20 tablet by ity of tablet 00:00: mouth (two) Medical times Branch daily with meals. lisinopril 2018-05 Yes [id number] 20mg Take 1 [facility] 20 mg 2-20 tablet by ity of tablet 00:00: mouth 00 daily. Medical Branch spironolact 2018-05 Yes [id number] 25mg Take 1 [facility] one 25 mg 2-20 tablet by ity o f tablet 00:00: mouth (two) Medical times Branch daily. rifAXIMin 2018-05 Yes [id number] 550mg Take 1 [facility] 550 mg 2-20 tablet by ity of tablet 00:00: mouth (two) Medical times Branch daily. albuterol 2018-05 Yes [id number] 2{puff} Inhale 2 [facility] 90 2-20 Puffs ity of mcg/actuati 00:00: every 6 [place] on inhaler 00 (six) Medical hours as Branch needed for Wheezing or Shortness of Breath. Pitavastati 2018-05 Yes [id number] 2mg Take 2 mg [facility] n (LIVALO) 2-20 by mouth ity o f 2 mg Tab 00:00: daily. [place] 00 Medical Branch Lancets 2018-05 Yes [id number] Use BID, U nivers Misc 2-20 DX E11.9 ity of 00:00: ([facility] 00 upon Medical insurance Branch approval) blood sugar 2018-05 Yes [id number] Use BID, [facility] diagnostic 2-20 DX E11.9 ity o f (ACCU-CHEK 00:00: ([facility] GUIDE) 00 upon Medical strip insurance Branch approval) lactulose 2018-05 Yes [id number] 15mL Take 15 mL [facility] 10 gram/15 2-20 by mouth 3 ity of mL solution 00:00: (three) [place] 00 times Medical daily. Branch hydrOXYzine 2018-05 Yes [id number] 50mg Take 1 U nivers 50 mg 2-20 tablet by ity of tablet 00:00: mouth 3 [place] 00 (three) Medical times Branch daily as needed for Itching. calcipotrie 2018-05 Yes [id number] Apply to [facility] ne 0.005 % 2-20 area(s) 2 ity of cream 00:00: (two) [place] 00 times Medical daily. Branch clobetasol 2018-05 Yes [id number] Apply to [facility] 0.05 % 2-20 area(s) 2 ity of cream 00:00: (two) [place] 00 times Medical daily. Branch pantoprazol 2018-05 Yes [id number] 40mg Take 1 [facility] e 40 mg EC 2-20 tablet by ity of tablet 00:00: mouth [place] 00 daily. Medical Branch triamcinolo 2018-05 Yes [id number] Apply to [facility] ne 2-20 affected ity of acetonide 00:00: area(s) 2 [place] 0.1 % cream 00 (two) Medical times Branch daily. albuterol 2018-05 Yes [id number] 2{puff} Inhale 2 [facility] 90 2-20 Puffs ity of mcg/actuati 00:00: every 6 [place] on inhaler 00 (six) Medical hours as Branch needed for Wheezing or Shortness of Breath. Lancets 2018-05 Yes [id number] Use BID, U nivers Misc 2-20 DX E11.9 ity of 00:00: ([facility] 00 upon Medical insurance Branch approval) lactulose 2018-05 Yes [id number] 15mL Take 15 mL [facility] 10 gram/15 2-20 by mouth 3 ity of mL solution 00:00: (three) [place] 00 times Medical daily. Branch calcipotrie 2018-05 Yes [id number] Apply to [facility] ne 0.005 % 2-20 area(s) 2 ity of cream 00:00: (two) [place] 00 times Medical daily. Branch triamcinolo 2018-05 Yes [id number] Apply to [facility] ne 2-20 affected ity of acetonide 00:00: area(s) 2 [place] 0.1 % cream 00 (two) Medical times Branch daily. furosemide 2018-05 Yes [id number] 40mg Take 1 U nivers 40 mg 2-20 tablet by ity of tablet 00:00: mouth every Medical morning Branch and evening. metFORMIN 2018-05 Yes [id number] 500mg Take 1 [facility] 500 mg 2-20 tablet by ity of tablet 00:00: mouth 2 (two) Medical times Branch daily with meals. carvedilol 2018-05 Yes [id number] 3.125mg Take 1 [facility] 3.125 mg 2-20 tablet by ity of tablet 00:00: mouth 2 (two) Medical times Branch daily with meals. spironolact 2018-05 Yes [id number] 25mg Take 1 [facility] one 25 mg 2-20 tablet by ity o f tablet 00:00: mouth 2 (two) Medical times Branch daily. rifAXIMin 2018-05 Yes [id number] 550mg Take 1 [facility] 550 mg 2-20 tablet by ity of tablet 00:00: mouth 2 (two) Medical times Branch daily. albuterol 2018-05 Yes [id number] 2{puff} Inhale 2 [facility] 90 2-20 Puffs ity of mcg/actuati 00:00: every 6 [place] on inhaler 00 (six) Medical hours as Branch needed for Wheezing or Shortness of Breath. Pitavastati 2018-05 Yes [id number] 2mg Take 2 mg [facility] n (LIVALO) 2-20 by mouth ity o f 2 mg Tab 00:00: daily. [place] [facility] Lancets 2018-05 Yes [id number] Use BID, U nivers Misc 2-20 DX E11.9 ity of 00:00: ([facility] upon Medical insurance Branch approval) blood sugar 2018-05 Yes [id number] Use BID, [facility] diagnostic 2-20 DX E11.9 ity o f (ACCU-CHEK 00:00: (Brand [place] GUIDE) 00 upon Medical strip insurance Branch approval) lactulose 2018-05 Yes [id number] 15mL Take 15 mL [facility] 10 gram/15 2-20 by mouth 3 ity of mL solution 00:00: (three) [place] 00 times Medical daily. Branch hydrOXYzine 2018-05 Yes [id number] 50mg Take 1 U nivers 50 mg 2-20 tablet by ity of tablet 00:00: mouth 3 [place] 00 (three) Medical times Branch daily as needed for Itching. calcipotrie 2018-05 Yes [id number] Apply to [facility] ne 0.005 % 2-20 area(s) 2 ity of cream 00:00: (two) [place] 00 times Medical daily. Branch pantoprazol 2018-05 Yes [id number] 40mg Take 1 [facility] e 40 mg EC 2-20 tablet by ity of tablet 00:00: mouth [place] 00 daily. Medical Branch triamcinolo 2018-05 Yes [id number] Apply to [facility] ne 2-20 affected ity of acetonide 00:00: area(s) 2 [place] 0.1 % cream 00 (two) Medical times Branch daily. furosemide 2018-05 Yes [id number] 40mg Take 1 U nivers 40 mg 2-20 tablet by ity of tablet 00:00: mouth [place] 00 every Medical morning Branch and evening. metFORMIN 2018-05 Yes [id number] 500mg Take 1 [facility] 500 mg 2-20 tablet by ity of tablet 00:00: mouth 2 [place] 00 (two) Medical times Branch daily with meals. carvedilol 2018-05 Yes [id number] 3.125mg Take 1 [facility] 3.125 mg 2-20 tablet by ity of tablet 00:00: mouth 2 [place] 00 (two) Medical times Branch daily with meals. spironolact 2018-05 Yes [id number] 25mg Take 1 [facility] one 25 mg 2-20 tablet by ity o f tablet 00:00: mouth 2 [place] 00 (two) Medical times Branch daily. rifAXIMin 2018-05 Yes [id number] 550mg Take 1 [facility] 550 mg 2-20 tablet by ity of tablet 00:00: mouth 2 [place] 00 (two) Medical times Branch daily. albuterol 2018-1 Yes [id number] 2{puff} Inhale 2 [facility] 90 2-20 Puffs ity of mcg/actuati 00:00: every 6 [place] on inhaler 00 (six) Medical hours as Branch needed for Wheezing or Shortness of Breath. Pitavastati 2018-05 Yes [id number] 2mg Take 2 mg [facility] n (LIVALO) 2-20 by mouth ity o f 2 mg Tab 00:00: daily. [place] 00 Medical Branch Lancets 2018-05 Yes [id number] Use BID, U nivers Misc 2-20 DX E11.9 ity of 00:00: ([facility] 00 upon Medical insurance Branch approval) blood sugar 2018-05 Yes [id number] Use BID, [facility] diagnostic 2-20 DX E11.9 ity o f (ACCU-CHEK 00:00: ([facility] GUIDE) [address] [place] [address] strip insurance Branch approval) lactulose 2018-05 Yes [id number] 15mL Take 15 mL [facility] 10 gram/15 2-20 by mouth 3 ity of mL solution 00:00: (three) [place] 00 times Medical daily. Branch hydrOXYzine 2018-05 Yes [id number] 50mg Take 1 U nivers 50 mg 2-20 tablet by ity of tablet 00:00: mouth 3 [place] 00 (three) Medical times Branch daily as needed for Itching. calcipotrie 2018-05 Yes [id number] Apply to [facility] ne 0.005 % 2-20 area(s) 2 ity of cream 00:00: (two) [place] 00 times Medical daily. Branch pantoprazol 2018-05 Yes [id number] 40mg Take 1 [facility] e 40 mg EC 2-20 tablet by ity of tablet 00:00: mouth [place] 00 daily. Medical Branch triamcinolo 2018-05 Yes [id number] Apply to [facility] ne 2-20 affected ity of acetonide 00:00: area(s) 2 [place] 0.1 % cream 00 (two) Medical times Branch daily. furosemide 2018-05 Yes [id number] 40mg Take 1 U nivers 40 mg 2-20 tablet by ity of tablet 00:00: mouth [place] 00 every Medical morning Branch and evening. metFORMIN 2018- Yes [id number] 500mg Take 1 [facility] 500 mg 2-20 tablet by ity of tablet 00:00: mouth 2 [place] 00 (two) Medical times Branch daily with meals. carvedilol 2018-05 Yes [id number] 3.125mg Take 1 [facility] 3.125 mg 2-20 tablet by ity of tablet 00:00: mouth 2 (two) Medical times Branch daily with meals. spironolact 2018-05 Yes [id number] 25mg Take 1 [facility] one 25 mg 2-20 tablet by ity o f tablet 00:00: mouth 2 [place] (two) Medical times Branch daily. rifAXIMin 2018-05 Yes [id number] 550mg Take 1 [facility] 550 mg 2-20 tablet by ity of tablet 00:00: mouth 2 [place] (two) Medical times Branch daily. albuterol 2018-05 Yes [id number] 2{puff} Inhale 2 [facility] 90 2-20 Puffs ity of mcg/actuati 00:00: every 6 [place] on inhaler 00 (six) Medical hours as Branch needed for Wheezing or Shortness of Breath. Pitavastati 2018-05 Yes [id number] 2mg Take 2 mg [facility] n (LIVALO) 2-20 by mouth ity o f 2 mg Tab 00:00: daily. [place] [facility] Branch Lancets 2018-05 Yes [id number] Use BID, U nivers Misc 2-20 DX E11.9 ity of 00:00: ([facility] 00 upon Medical insurance Branch approval) blood sugar 2018-05 Yes [id number] Use BID, [facility] diagnostic 2-20 DX E11.9 ity o f (ACCU-CHEK 00:00: ([facility] GUIDE) [address] [place] [address] Medical strip insurance Branch approval) lactulose 2018-05 Yes [id number] 15mL Take 15 mL [facility] 10 gram/15 2-20 by mouth 3 ity of mL solution 00:00: (three) [place] 00 times Medical daily. Branch hydrOXYzine 2018-05 Yes [id number] 50mg Take 1 U nivers 50 mg 2-20 tablet by ity of tablet 00:00: mouth 3 00 (three) Medical times Branch daily as needed for Itching. calcipotrie 2018-05 Yes [id number] Apply to [facility] ne 0.005 % 2-20 area(s) 2 ity of cream 00:00: (two) [place] 00 times Medical daily. Branch pantoprazol 2018-05 Yes [id number] 40mg Take 1 [facility] e 40 mg EC 2-20 tablet by ity of tablet 00:00: mouth [place] 00 daily. Medical Branch triamcinolo 2018-05 Yes [id number] Apply to [facility] ne 2-20 affected ity of acetonide 00:00: area(s) 2 [place] 0.1 % cream 00 (two) Medical times Branch daily. albuterol 2018-05 Yes [id number] 2{puff} Inhale 2 [facility] 90 2-20 Puffs ity of mcg/actuati 00:00: every 6 [place] on inhaler 00 (six) Medical hours as Branch needed for Wheezing or Shortness of Breath. Lancets 2018-05 Yes [id number] Use BID, U nivers Misc 2-20 DX E11.9 ity of 00:00: (Brand [address] insurance Branch approval) lactulose 2018-05 Yes [id number] 15mL Take 15 mL [facility] 10 gram/15 2-20 by mouth 3 ity of mL solution 00:00: (three) [place] 00 times Medical daily. Branch calcipotrie 2018-05 Yes [id number] Apply to [facility] ne 0.005 % 2-20 area(s) 2 ity of cream 00:00: (two) [place] 00 times Medical daily. Branch triamcinolo 2018-05 Yes [id number] Apply to [facility] ne 2-20 affected ity of acetonide 00:00: area(s) 2 [place] 0.1 % cream 00 (two) Medical times Branch daily. albuterol 2018-05 Yes [id number] 2{puff} Inhale 2 [facility] 90 2-20 Puffs ity of mcg/actuati 00:00: every 6 [place] on inhaler 00 (six) Medical hours as Branch needed for Wheezing or Shortness of Breath. Lancets 2018-05 Yes [id number] Use BID, U nivers Misc 2-20 DX E11.9 ity of 00:00: (Brand [place] [address] upon Medical insurance Branch approval) lactulose 2018-05 Yes [id number] 15mL Take 15 mL [facility] 10 gram/15 2-20 by mouth 3 ity of mL solution 00:00: (three) [place] 00 times Medical daily. Branch calcipotrie 2018-05 Yes [id number] Apply to [facility] ne 0.005 % 2-20 area(s) 2 ity of cream 00:00: (two) [place] 00 times Medical daily. Branch triamcinolo 2018-05 Yes [id number] Apply to [facility] ne 2-20 affected ity of acetonide 00:00: area(s) 2 [place] 0.1 % cream 00 (two) Medical times Branch daily. albuterol 2018-05 Yes [id number] 2{puff} Inhale 2 [facility] 90 2-20 Puffs ity of mcg/actuati 00:00: every 6 [place] on inhaler 00 (six) Medical hours as Branch needed for Wheezing or Shortness of Breath. Lancets 2018-05 Yes [id number] Use BID, U nivers Misc 2-20 DX E11.9 ity of 00:00: (Brand [address] Medical insurance Branch approval) lactulose 2018-05 Yes [id number] 15mL Take 15 mL [facility] 10 gram/15 2-20 by mouth 3 ity of mL solution 00:00: (three) [place] 00 times Medical daily. Branch calcipotrie 2018-05 Yes [id number] Apply to [facility] ne 0.005 % 2-20 area(s) 2 ity of cream 00:00: (two) [place] 00 times Medical daily. Branch triamcinolo 2018-05 Yes [id number] Apply to [facility] ne 2-20 affected ity of acetonide 00:00: area(s) 2 [place] 0.1 % cream 00 (two) Medical times Branch daily. albuterol 2018-05 Yes [id number] 2{puff} Inhale 2 [facility] 90 2-20 Puffs ity of mcg/actuati 00:00: every 6 [place] on inhaler 00 (six) Medical hours as Branch needed for Wheezing or Shortness of Breath. Lancets 2018-05 Yes [id number] Use BID, U nivers Misc 2-20 DX E11.9 ity of 00:00: (Brand [place] [address] [place] [address] Medical insurance Branch approval) lactulose 2018-05 Yes [id number] 15mL Take 15 mL [facility] 10 gram/15 2-20 by mouth 3 ity of mL solution 00:00: (three) [place] 00 times Medical daily. Branch calcipotrie 2018- Yes [id number] Apply to [facility] ne 0.005 % 2-20 area(s) 2 ity of cream 00:00: (two) [place] 00 times Medical daily. Branch triamcinolo 2018-05 Yes [id number] Apply to [facility] ne 2-20 affected ity of acetonide 00:00: area(s) 2 [place] 0.1 % cream 00 (two) Medical times Branch daily. albuterol 2018-05 Yes [id number] 2{puff} Inhale 2 [facility] 90 2-20 Puffs ity of mcg/actuati 00:00: every 6 [place] on inhaler 00 (six) Medical hours as Branch needed for Wheezing or Shortness of Breath. Lancets 2018- Yes [id number] Use BID, U nivers Misc 2-20 DX E11.9 ity of 00:00: (Brand [address] Medical insurance Branch approval) lactulose 2018-05 Yes [id number] 15mL Take 15 mL [facility] 10 gram/15 2-20 by mouth 3 ity of mL solution 00:00: (three) [place] 00 times Medical daily. Branch calcipotrie 2018-05 Yes [id number] Apply to [facility] ne 0.005 % 2-20 area(s) 2 ity of cream 00:00: (two) [place] 00 times Medical daily. Branch triamcinolo 2018-05 Yes [id number] Apply to [facility] ne 2-20 affected ity of acetonide 00:00: area(s) 2 [place] 0.1 % cream 00 (two) Medical times Branch daily. albuterol 2018-05 Yes [id number] 2{puff} Inhale 2 [facility] 90 2-20 Puffs ity of mcg/actuati 00:00: every 6 [place] on inhaler 00 (six) Medical hours as Branch needed for Wheezing or Shortness of Breath. Lancets 2018-05 Yes [id number] Use BID, U nivers Misc 2-20 DX E11.9 ity of 00:00: (Brand [address] Medical insurance Branch approval) lactulose 2018-05 Yes [id number] 15mL Take 15 mL [facility] 10 gram/15 2-20 by mouth 3 ity of mL solution 00:00: (three) [place] 00 times Medical daily. Branch calcipotrie 2018-05 Yes [id number] Apply to [facility] ne 0.005 % 2-20 area(s) 2 ity of cream 00:00: (two) [place] 00 times Medical daily. Branch triamcinolo 2018-05 Yes [id number] Apply to [facility] ne 2-20 affected ity of acetonide 00:00: area(s) 2 [place] 0.1 % cream 00 (two) Medical times Branch daily. albuterol 2018-05 Yes [id number] 2{puff} Inhale 2 [facility] 90 2-20 Puffs ity of mcg/actuati 00:00: every 6 [place] on inhaler 00 (six) Medical hours as Branch needed for Wheezing or Shortness of Breath. Lancets 2018-05 Yes [id number] Use BID, U nivers Misc 2-20 DX E11.9 ity of 00:00: (Brand [address] Medical insurance Branch approval) lactulose 2018-05 Yes [id number] 15mL Take 15 mL [facility] 10 gram/15 2-20 by mouth 3 ity of mL solution 00:00: (three) [place] 00 times Medical daily. Branch calcipotrie 2018-05 Yes [id number] Apply to [facility] ne 0.005 % 2-20 area(s) 2 ity of cream 00:00: (two) [place] 00 times Medical daily. Branch triamcinolo 2018-05 Yes [id number] Apply to [facility] ne 2-20 affected ity of acetonide 00:00: area(s) 2 [place] 0.1 % cream 00 (two) Medical times Branch daily. albuterol 2018-05 Yes [id number] 2{puff} Inhale 2 [facility] 90 2-20 Puffs ity of mcg/actuati 00:00: every 6 [place] on inhaler 00 (six) Medical hours as Branch needed for Wheezing or Shortness of Breath. Lancets 2018-05 Yes [id number] Use BID, U nivers Misc 2-20 DX E11.9 ity of 00:00: (Brand [address] Medical insurance Branch approval) lactulose 2018-05 Yes [id number] 15mL Take 15 mL [facility] 10 gram/15 2-20 by mouth 3 ity of mL solution 00:00: (three) [place] 00 times Medical daily. Branch calcipotrie 2018-05 Yes [id number] Apply to [facility] ne 0.005 % 2-20 area(s) 2 ity of cream 00:00: (two) [place] 00 times Medical daily. Branch triamcinolo 2018-05 Yes [id number] Apply to [facility] ne 2-20 affected ity of acetonide 00:00: area(s) 2 [place] 0.1 % cream 00 (two) Medical times Branch daily. albuterol 2018-05 Yes [id number] 2{puff} Inhale 2 [facility] 90 2-20 Puffs ity of mcg/actuati 00:00: every 6 [place] on inhaler 00 (six) Medical hours as Branch needed for Wheezing or Shortness of Breath. Lancets 2018-05 Yes [id number] Use BID, U nivers Misc 2-20 DX E11.9 ity of 00:00: (Brand [place] 00 upon Medical insurance Branch approval) lactulose 2018-05 Yes [id number] 15mL Take 15 mL [facility] 10 gram/15 2-20 by mouth 3 ity of mL solution 00:00: (three) [place] 00 times Medical daily. Branch calcipotrie 2018-05 Yes [id number] Apply to [facility] ne 0.005 % 2-20 area(s) 2 ity of cream 00:00: (two) [place] 00 times Medical daily. Branch triamcinolo 2018-05 Yes [id number] Apply to [facility] ne 2-20 affected ity of acetonide 00:00: area(s) 2 [place] 0.1 % cream 00 (two) Medical times Branch daily. furosemide 2018-05 Yes [id number] 40mg Take 1 U nivers 40 mg 2-20 tablet by ity of tablet 00:00: mouth [place] 00 every Medical morning Branch and evening. metFORMIN 2018- Yes [id number] 500mg Take 1 [facility] 500 mg 2-20 tablet by ity of tablet 00:00: mouth 2 [place] (two) Medical times Branch daily with meals. carvedilol 2018-05 Yes [id number] 3.125mg Take 1 [facility] 3.125 mg 2-20 tablet by ity of tablet 00:00: mouth 2 [place] (two) Medical times Branch daily with meals. lisinopril 2018-05 Yes [id number] 20mg Take 1 U nivers 20 mg 2-20 tablet by ity of tablet 00:00: mouth [place] 00 daily. Medical Branch spironolact 2018-05 Yes [id number] 25mg Take 1 [facility] one 25 mg 2-20 tablet by ity o f tablet 00:00: mouth 2 [place] (two) Medical times Branch daily. rifAXIMin 2018-05 Yes [id number] 550mg Take 1 [facility] 550 mg 2-20 tablet by ity of tablet 00:00: mouth 2 [place] 00 (two) Medical times Branch daily. albuterol 2018-05 Yes [id number] 2{puff} Inhale 2 [facility] 90 2-20 Puffs ity of mcg/actuati 00:00: every 6 [place] on inhaler 00 (six) Medical hours as Branch needed for Wheezing or Shortness of Breath. Pitavastati 2018-05 Yes [id number] 2mg Take 2 mg [facility] n (LIVALO) 2-20 by mouth ity o f 2 mg Tab 00:00: daily. Medical Branch Lancets 2018-05 Yes [id number] Use BID, U nivers Misc 2-20 DX E11.9 ity of 00:00: ([facility] 00 upon Medical insurance Branch approval) blood sugar 2018-05 Yes [id number] Use BID, [facility] diagnostic 2-20 DX E11.9 ity o f (ACCU-CHEK 00:00: ([facility] GUIDE) 00 upon Medical strip insurance Branch approval) lactulose 2018-05 Yes [id number] 15mL Take 15 mL [facility] 10 gram/15 2-20 by mouth 3 ity of mL solution 00:00: (three) [place] 00 times Medical daily. Branch hydrOXYzine 2018-05 Yes [id number] 50mg Take 1 U nivers 50 mg 2-20 tablet by ity of tablet 00:00: mouth 3 00 (three) Medical times Branch daily as needed for Itching. calcipotrie 2018-05 Yes [id number] Apply to [facility] ne 0.005 % 2-20 area(s) 2 ity of cream 00:00: (two) [place] 00 times Medical daily. Branch clobetasol 2018-05 Yes [id number] Apply to [facility] 0.05 % 2-20 area(s) 2 ity of cream 00:00: (two) [place] 00 times Medical daily. Branch foLIC acid 2018-05 Yes [id number] 1mg Take 1 [facility] 1 mg tablet 2-20 tablet by ity of 00:00: mouth [place] 00 daily. Medical Branch pantoprazol 2018-05 Yes [id number] 40mg Take 1 [facility] e 40 mg EC 2-20 tablet by ity of tablet 00:00: mouth [place] 00 daily. Medical Branch triamcinolo 2018-05 Yes [id number] Apply to [facility] ne 2-20 affected ity of acetonide 00:00: area(s) 2 [place] 0.1 % cream 00 (two) Medical times Branch daily. furosemide 2018-05 Yes [id number] 40mg Take 1 U nivers 40 mg 2-20 tablet by ity of tablet 00:00: mouth every Medical morning Branch and evening. metFORMIN 2018-05 Yes [id number] 500mg Take 1 [facility] 500 mg 2-20 tablet by ity of tablet 00:00: mouth (two) Medical times Branch daily with meals. carvedilol 2018-05 Yes [id number] 3.125mg Take 1 [facility] 3.125 mg 2-20 tablet by ity of tablet 00:00: mouth (two) Medical times Branch daily with meals. lisinopril 2018-05 Yes [id number] 20mg Take 1 U nivers 20 mg 2-20 tablet by ity of tablet 00:00: mouth daily. Medical Branch spironolact 2018-05 Yes [id number] 25mg Take 1 [facility] one 25 mg 2-20 tablet by ity o f tablet 00:00: mouth (two) Medical times Branch daily. rifAXIMin 2018-05 Yes [id number] 550mg Take 1 [facility] 550 mg 2-20 tablet by ity of tablet 00:00: mouth (two) Medical times Branch daily. albuterol 2018-05 Yes [id number] 2{puff} Inhale 2 [facility] 90 2-20 Puffs ity of mcg/actuati 00:00: every 6 [place] on inhaler 00 (six) Medical hours as Branch needed for Wheezing or Shortness of Breath. Pitavastati 2018-05 Yes [id number] 2mg Take 2 mg [facility] n (LIVALO) 2-20 by mouth ity o f 2 mg Tab 00:00: daily. Medical Branch Lancets 2018-05 Yes [id number] Use BID, U nivers Misc 2-20 DX E11.9 ity of 00:00: ([facility] [place] 00 upon Medical insurance Branch approval) blood sugar 2018-05 Yes [id number] Use BID, [facility] diagnostic 2-20 DX E11.9 ity o f (ACCU-CHEK 00:00: ([facility] GUIDE) 00 upon Medical strip insurance Branch approval) lactulose 2018-05 Yes [id number] 15mL Take 15 mL [facility] 10 gram/15 2-20 by mouth 3 ity of mL solution 00:00: (three) [place] 00 times Medical daily. Branch hydrOXYzine 2018-05 Yes [id number] 50mg Take 1 U nivers 50 mg 2-20 tablet by ity of tablet 00:00: mouth 3 [place] 00 (three) Medical times Branch daily as needed for Itching. calcipotrie 2018-05 Yes [id number] Apply to [facility] ne 0.005 % 2-20 area(s) 2 ity of cream 00:00: (two) [place] 00 times Medical daily. Branch clobetasol 2018-05 Yes [id number] Apply to [facility] 0.05 % 2-20 area(s) 2 ity of cream 00:00: (two) [place] 00 times Medical daily. Branch foLIC acid 2018-05 Yes [id number] 1mg Take 1 [facility] 1 mg tablet 2-20 tablet by ity of 00:00: mouth [place] 00 daily. Medical Branch pantoprazol 2018-05 Yes [id number] 40mg Take 1 [facility] e 40 mg EC 2-20 tablet by ity of tablet 00:00: mouth [place] 00 daily. Medical Branch triamcinolo 2018-05 Yes [id number] Apply to [facility] ne 2-20 affected ity of acetonide 00:00: area(s) 2 [place] 0.1 % cream 00 (two) Medical times Branch daily. furosemide 2018-05 Yes [id number] 40mg Take 1 U nivers 40 mg 2-20 tablet by ity of tablet 00:00: mouth [place] 00 every Medical morning Branch and evening. metFORMIN 2018-05 Yes [id number] 500mg Take 1 [facility] 500 mg 2-20 tablet by ity of tablet 00:00: mouth 2 [place] 00 (two) Medical times Branch daily with meals. carvedilol 2018-05 Yes [id number] 3.125mg Take 1 [facility] 3.125 mg 2-20 tablet by it[facility] of tablet 00:00: mouth 2 [place] 00 (two) Medical times Branch daily with meals. lisinopril 2018-05 Yes [id number] 20mg Take 1 [facility] 20 mg 2-20 tablet by it[facility] of tablet 00:00: mouth [place] 00 daily. Medical Branch spironolact 2018-05 Yes [id number] 25mg Take 1 [facility] one 25 mg 2-20 tablet by ity o f tablet 00:00: mouth 2 (two) Medical times Branch daily. rifAXIMin 2018-05 Yes [id number] 550mg Take 1 [facility] 550 mg 2-20 tablet by ity of tablet 00:00: mouth 2 (two) Medical times Branch daily. albuterol 2018-05 Yes [id number] 2{puff} Inhale 2 [facility] 90 2-20 Puffs ity of mcg/actuati 00:00: every 6 [place] on inhaler 00 (six) Medical hours as Branch needed for Wheezing or Shortness of Breath. Pitavastati 2018-05 Yes [id number] 2mg Take 2 mg [facility] n (LIVALO) 2-20 by mouth ity o f 2 mg Tab 00:00: daily. [place] [facility] Lancets 2018-05 Yes [id number] Use BID, [facility] n[facility] Misc 2-20 DX E11.9 ity of 00:00: ([facility] 00 upon Medical insurance Branch approval) blood sugar 2018-05 Yes [id number] Use BID, [facility] diagnostic 2-20 DX E11.9 ity o f (ACCU-CHEK 00:00: ([facility] GUIDE) upon Medical strip insurance Branch approval) lactulose 2018-05 Yes [id number] 15mL Take 15 mL [facility] 10 gram/15 2-20 by mouth 3 ity of mL solution 00:00: (three) [place] 00 times Medical daily. Branch hydrOXYzine 2018-05 Yes [id number] 50mg Take 1 [facility] n[facility] 50 mg 2-20 tablet by ity of tablet 00:00: mouth 3 (three) Medical times Branch daily as needed for Itching. calcipotrie 2018-05 Yes [id number] Apply to [facility] ne 0.005 % 2-20 area(s) 2 ity of cream 00:00: (two) [place] 00 times Medical daily. Branch clobetasol 2018- Yes [id number] Apply to [facility] 0.05 % 2-20 area(s) 2 ity of cream 00:00: (two) [place] 00 times Medical daily. Branch pantoprazol 2018-05 Yes [id number] 40mg Take 1 [facility] e 40 mg EC 2-20 tablet by ity of tablet 00:00: mouth [place] 00 daily. Medical Branch triamcinolo 2018-05 Yes [id number] Apply to [facility] ne 2-20 affected ity of acetonide 00:00: area(s) 2 [place] 0.1 % cream 00 (two) Medical times Branch daily. furosemide 2018-05 Yes [id number] 40mg Take 1 [facility] n[facility] 40 mg 2-20 tablet by ity of tablet 00:00: mouth [place] 00 every Medical morning Branch and evening. furosemide 2018-05- No [id number] 40mg Take 1 [facility] 40 mg 2-20 05-19 tablet by ity of tablet 00:00: 00:00 mouth [place] 00 :00 every Medical morning Branch and evening. metFORMIN 2018-05- No [id number] 500mg Take 1 [facility] 500 mg 2-20 05-19 tablet by ity of tablet 00:00: 00:00 mouth 2 [place] 00 :00 (two) Medical times Branch daily with meals. carvedilol 2018-05- No [id number] 3.125mg Take 1 [facility] 3.125 mg 2-20 05-19 tablet by ity o f tablet 00:00: 00:00 mouth 2 [place] 00 :00 (two) Medical times Branch daily with meals. spironolact 2018-05- No [id number] 25mg Take 1 [facility] one 25 mg 2-20 05-19 tablet by ity of tablet 00:00: 00:00 mouth 2 [place] 00 :00 (two) Medical times Branch daily. rifAXIMin 2018-05- No [id number] 550mg Take 1 [facility] 550 mg 2-20 05-19 tablet by ity of tablet 00:00: 00:00 mouth 2 [place] 00 :00 (two) Medical times Branch daily. Pitavastati 2018-05- No [id number] 2mg Take 2 mg [facility] n (LIVALO) 2-20 05-19 by mouth ity of 2 mg Tab 00:00: 00:00 daily. [place] 00 :00 Medical Branch blood sugar 2018-05- No [id number] Use BID, [facility] diagnostic 2-20 05-19 DX E11.9 ity of (ACCU-CHEK 00:00: 00:00 ([facility] [place] GUIDE) 00 :00 upon Medical strip insurance Branch approval) hydrOXYzine 2018-05- No [id number] 50mg Take 1 [facility] 50 mg 2-20 05-19 tablet by ity of tablet 00:00: 00:00 mouth 3 [place] 00 :00 (three) Medical times Branch daily as needed for Itching. pantoprazol 2018-05- No [id number] 40mg Take 1 [facility] e 40 mg EC 2-20 05-19 tablet by ity of tablet 00:00: 00:00 mouth [place] 00 :00 daily. Medical Branch furosemide 2018-05- No [id number] 40mg Take 1 [facility] 40 mg 2-20 05-19 tablet by ity of tablet 00:00: 00:00 mouth [place] 00 :00 every Medical morning Branch and evening. metFORMIN 2018-05- No [id number] 500mg Take 1 [facility] 500 mg 2-20 05-19 tablet by ity of tablet 00:00: 00:00 mouth 2 [place] 00 :00 (two) Medical times Branch daily with meals. carvedilol 2018-05- No [id number] 3.125mg Take 1 [facility] 3.125 mg 2-20 05-19 tablet by ity o f tablet 00:00: 00:00 mouth 2 [place] 00 :00 (two) Medical times Branch daily with meals. spironolact 2018-05- No [id number] 25mg Take 1 [facility] one 25 mg 2-20 05-19 tablet by ity of tablet 00:00: 00:00 mouth 2 [place] 00 :00 (two) Medical times Branch daily. rifAXIMin 2018-05- No [id number] 550mg Take 1 [facility] 550 mg 2-20 05-19 tablet by ity of tablet 00:00: 00:00 mouth 2 [place] 00 :00 (two) Medical times Branch daily. Pitavastati 2018-05- No [id number] 2mg Take 2 mg [facility] n (LIVALO) 2-20 05-19 by mouth ity of 2 mg Tab 00:00: 00:00 daily. [place] 00 :00 Medical Branch blood sugar 2018-05- No [id number] Use BID, [facility] diagnostic 2-20 05-19 DX E11.9 ity of (ACCU-CHEK 00:00: 00:00 ([facility] [place] GUIDE[place] 00 :00 upon Medical strip insurance Branch approval) hydrOXYzine 2018-05- No [id number] 50mg Take 1 [facility] 50 mg 2-20 05-19 tablet by ity of tablet 00:00: 00:00 mouth 3 [place] 00 :00 (three) Medical times Branch daily as needed for Itching. pantoprazol 2018-05- No [id number] 40mg Take 1 [facility] e 40 mg EC -10-14 tablet by ity of tablet 00:00: 00:00 mouth [place] 00 :00 daily. Medical Branch lisinopril 2018-05- No [id number] 20mg Take 1 [facility] 20 mg -08-04 tablet by ity of tablet 00:00: 00:00 mouth [place] 00 :00 daily. Medical Branch foLIC acid 2018-05- No [id number] 1mg Take 1 [facility] 1 mg tablet 07-18 tablet by it y of 00:00: 00:00 mouth [place] 00 :00 daily. Medical Branch foLIC acid 2018-05- No [id number] 1mg Take 1 [facility] 1 mg tablet 07-18 tablet by it y of 00:00: 00:00 mouth [place] 00 :00 daily. Medical Branch doxycycline 2019-0 Yes [id number] 100mg Take 1 [facility] 100 mg 8-29 tablet by ity of tablet 00:00: mouth (two) Medical times Branch daily. doxycycline 2019-0 Yes [id number] 100mg Take 1 [facility] 100 mg 8-29 tablet by ity of tablet 00:00: mouth (two) Medical times Branch daily. doxycycline 2019-0 Yes [id number] 100mg Take 1 [facility] 100 mg 8-29 tablet by ity of tablet 00:00: mouth (two) Medical times Branch daily. doxycycline 2019-0 Yes [id number] 100mg Take 1 [facility] 100 mg 8-29 tablet by ity of tablet 00:00: mouth (two) Medical times Branch daily. doxycycline 2019-0 Yes [id number] 100mg Take 1 [facility] 100 mg 8-29 tablet by ity of tablet 00:00: mouth (two) Medical times Branch daily. doxycycline 2019-0 Yes [id number] 100mg Take 1 [facility] 100 mg 8-29 tablet by ity of tablet 00:00: mouth 2 (two) Medical times Branch daily. doxycycline 2019-0 Yes [id number] 100mg Take 1 [facility] 100 mg 8-29 tablet by ity of tablet 00:00: mouth (two) Medical times Branch daily. doxycycline 2019-0 Yes [id number] 100mg Take 1 [facility] 100 mg 8-29 tablet by ity of tablet 00:00: mouth 2 (two) Medical times Branch daily. doxycycline 2018- Yes [id number] 100mg Take 1 [facility] 100 mg 8-29 tablet by ity of tablet 00:00: mouth 2 (two) Medical times Branch daily. doxycycline Yes [id number] 100mg Take 1 [facility] 100 mg 8-29 tablet by ity of tablet 00:00: mouth 2 (two) Medical times Branch daily. doxycycline 2020- No [id number] 100mg Take 1 [facility] 100 mg 8-29 05-19 tablet by ity of tablet 00:00: 00:00 mouth 2 [place] 00 :00 (two) Medical times Branch daily. doxycycline 2020- No [id number] 100mg Take 1 [facility] 100 mg 8-29 05-19 tablet by ity of tablet 00:00: 00:00 mouth 2 [place] 00 :00 (two) Medical times Branch daily. spironolact Yes [id number] 25mg Take 1 [facility] one 25 mg 8-07 tablet by ity o f tablet 00:00: mouth (two) Medical times Branch daily. spironolact Yes [id number] 25mg Take 1 [facility] one 25 mg 8-07 tablet by ity o f tablet 00:00: mouth (two) Medical times Branch daily. spironolact 2018- Yes [id number] 25mg Take 1 [facility] one 25 mg 8-07 tablet by ity o f tablet 00:00: mouth 2 (two) Medical times Branch daily. spironolact 2018- Yes [id number] 25mg Take 1 [facility] one 25 mg 8-07 tablet by ity o f tablet 00:00: mouth 2 (two) Medical times Branch daily. spironolact 2019-0 Yes [id number] 25mg Take 1 [facility] one 25 mg 8-07 tablet by ity o f tablet 00:00: mouth 2 (two) Medical times Branch daily. spironolact 2019- Yes [id number] 25mg Take 1 [facility] one 25 mg 8-07 tablet by ity o f tablet 00:00: mouth 2 (two) Medical times Branch daily. spironolact 2019- Yes [id number] 25mg Take 1 [facility] one 25 mg 8-07 tablet by ity o f tablet 00:00: mouth 2 (two) Medical times Branch daily. spironolact 2018-0 Yes [id number] 25mg Take 1 [facility] one 25 mg 8-07 tablet by ity o f tablet 00:00: mouth 2 (two) Medical times Branch daily. spironolact 2018- Yes [id number] 25mg Take 1 [facility] one 25 mg 8-07 tablet by ity o f tablet 00:00: mouth 2 (two) Medical times Branch daily. spironolact Yes [id number] 25mg Take 1 [facility] one 25 mg 8-07 tablet by ity o f tablet 00:00: mouth 2 (two) Medical times Branch daily. ALPRAZolam Yes [id number] 1mg Take 1 [facility] 1 mg tablet 7-22 tablet by ity of 00:00: mouth (two) Medical times Branch daily. Prn anxiety carvedilol 2018- Yes [id number] 3.125mg Take 1 [facility] 3.125 mg 7-22 tablet by ity of tablet 00:00: mouth (two) Medical times Branch daily with meals. foLIC acid 2018- Yes [id number] 1mg Take 1 [facility] 1 mg tablet 7-22 tablet by ity of 00:00: mouth 00 daily. Medical Branch furosemide 2018- Yes [id number] 40mg Take 1 [facility] 40 mg 7-22 tablet by ity of tablet 00:00: mouth 00 daily. Medical Branch hydrOXYzine 2018- Yes [id number] 50mg Take 1 [facility] 50 mg 7-22 tablet by ity of tablet 00:00: mouth 3 (three) Medical times Branch daily as needed for Itching. metFORMIN 2018- Yes [id number] 500mg Take 1 [facility] 500 mg 7-22 tablet by ity of tablet 00:00: mouth 2 (two) Medical times Branch daily with meals. pantoprazol 2018- Yes [id number] 40mg Take 1 [facility] e 40 mg EC 7-22 tablet by ity of tablet 00:00: mouth 00 daily. Medical Branch clobetasol 2018- Yes [id number] Apply to [facility] 0.05 % 7-22 area(s) 2 ity of cream 00:00: (two) [place] 00 times Medical daily. Branch triamcinolo Yes [id number] Apply to [facility] ne 7-22 affected ity of acetonide 00:00: area(s) 2 [place] 0.1 % cream 00 (two) Medical times Branch daily. ALPRAZolam Yes [id number] 1mg Take 1 [facility] 1 mg tablet 7-22 tablet by ity of 00:00: mouth 2 [place] 00 (two) Medical times Branch daily. Prn anxiety carvedilol 2018- Yes [id number] 3.125mg Take 1 [facility] 3.125 mg 7-22 tablet by ity of tablet 00:00: mouth 2 [place] (two) Medical times Branch daily with meals. foLIC acid 2018- Yes [id number] 1mg Take 1 [facility] 1 mg tablet 7-22 tablet by ity of 00:00: mouth [place] 00 daily. Medical Branch furosemide Yes [id number] 40mg Take 1 [facility] 40 mg 7-22 tablet by ity of tablet 00:00: mouth [place] 00 daily. Medical Branch hydrOXYzine Yes [id number] 50mg Take 1 [facility] 50 mg 7-22 tablet by ity of tablet 00:00: mouth 3 [place] 00 (three) Medical times Branch daily as needed for Itching. metFORMIN Yes [id number] 500mg Take 1 [facility] 500 mg 7-22 tablet by ity of tablet 00:00: mouth 2 [place] 00 (two) Medical times Branch daily with meals. pantoprazol 2018- Yes [id number] 40mg Take 1 [facility] e 40 mg EC 7-22 tablet by ity of tablet 00:00: mouth [place] 00 daily. Medical Branch clobetasol Yes [id number] Apply to [facility] 0.05 % 7-22 area(s) 2 ity of cream 00:00: (two) [place] 00 times Medical daily. Branch triamcinolo Yes [id number] Apply to [facility] ne 7-22 affected ity of acetonide 00:00: area(s) 2 [place] 0.1 % cream 00 (two) Medical times Branch daily. ALPRAZolam Yes [id number] 1mg Take 1 [facility] 1 mg tablet 7-22 tablet by ity of 00:00: mouth 2 [place] 00 (two) Medical times Branch daily. Prn anxiety carvedilol 2018- Yes [id number] 3.125mg Take 1 [facility] 3.125 mg 7-22 tablet by ity of tablet 00:00: mouth (two) Medical times Branch daily with meals. foLIC acid Yes [id number] 1mg Take 1 [facility] 1 mg tablet 7-22 tablet by ity of 00:00: mouth 00 daily. Medical Branch furosemide Yes [id number] 40mg Take 1 [facility] 40 mg 7-22 tablet by ity of tablet 00:00: mouth 00 daily. Medical Branch hydrOXYzine Yes [id number] 50mg Take 1 [facility] 50 mg 7-22 tablet by ity of tablet 00:00: mouth 3 (three) Medical times Branch daily as needed for Itching. metFORMIN Yes [id number] 500mg Take 1 [facility] 500 mg 7-22 tablet by ity of tablet 00:00: mouth (two) Medical times Branch daily with meals. pantoprazol Yes [id number] 40mg Take 1 [facility] e 40 mg EC 7-22 tablet by ity of tablet 00:00: mouth 00 daily. Medical Branch clobetasol Yes [id number] Apply to [facility] 0.05 % 7-22 area(s) 2 ity of cream 00:00: (two) times Medical daily. Branch triamcinolo Yes [id number] Apply to [facility] ne 7-22 affected ity of acetonide 00:00: area(s) 2 [place] 0.1 % cream 00 (two) Medical times Branch daily. ALPRAZolam Yes [id number] 1mg Take 1 [facility] 1 mg tablet 7-22 tablet by ity of 00:00: mouth (two) Medical times Branch daily. Prn anxiety carvedilol Yes [id number] 3.125mg Take 1 [facility] 3.125 mg 7-22 tablet by ity of tablet 00:00: mouth (two) Medical times Branch daily with meals. foLIC acid Yes [id number] 1mg Take 1 [facility] 1 mg tablet 7-22 tablet by ity of 00:00: mouth 00 daily. Medical Branch furosemide Yes [id number] 40mg Take 1 [facility] 40 mg 7-22 tablet by ity of tablet 00:00: mouth 00 daily. Medical Branch hydrOXYzine 2018- Yes [id number] 50mg Take 1 [facility] 50 mg 7-22 tablet by ity of tablet 00:00: mouth 3 (three) Medical times Branch daily as needed for Itching. metFORMIN 2018- Yes [id number] 500mg Take 1 [facility] 500 mg 7-22 tablet by ity of tablet 00:00: mouth 2 (two) Medical times Branch daily with meals. pantoprazol 2018- Yes [id number] 40mg Take 1 [facility] e 40 mg EC 7-22 tablet by ity of tablet 00:00: mouth 00 daily. Medical Branch clobetasol Yes [id number] Apply to [facility] 0.05 % 7-22 area(s) 2 ity of cream 00:00: (two) 00 times Medical daily. Branch triamcinolo Yes [id number] Apply to [facility] ne 7-22 affected ity of acetonide 00:00: area(s) 2 [place] 0.1 % cream 00 (two) Medical times Branch daily. ALPRAZolam Yes [id number] 1mg Take 1 [facility] 1 mg tablet 7-22 tablet by ity of 00:00: mouth 2 (two) Medical times Branch daily. Prn anxiety carvedilol 2018- Yes [id number] 3.125mg Take 1 [facility] 3.125 mg 7-22 tablet by ity of tablet 00:00: mouth 2 (two) Medical times Branch daily with meals. foLIC acid 2018- Yes [id number] 1mg Take 1 [facility] 1 mg tablet 7-22 tablet by ity of 00:00: mouth 00 daily. Medical Branch hydrOXYzine 2018- Yes [id number] 50mg Take 1 [facility] 50 mg 7-22 tablet by ity of tablet 00:00: mouth 3 (three) Medical times Branch daily as needed for Itching. metFORMIN Yes [id number] 500mg Take 1 [facility] 500 mg 7-22 tablet by ity of tablet 00:00: mouth 2 (two) Medical times Branch daily with meals. pantoprazol 2018- Yes [id number] 40mg Take 1 [facility] e 40 mg EC 7-22 tablet by ity of tablet 00:00: mouth [place] 00 daily. Medical Branch clobetasol Yes [id number] Apply to [facility] 0.05 % 7-22 area(s) 2 ity of cream 00:00: (two) [place] 00 times Medical daily. Branch triamcinolo Yes [id number] Apply to [facility] ne 7-22 affected ity of acetonide 00:00: area(s) 2 [place] 0.1 % cream 00 (two) Medical times Branch daily. ALPRAZolam Yes [id number] 1mg Take 1 [facility] 1 mg tablet 7-22 tablet by ity of 00:00: mouth 2 (two) Medical times Branch daily. Prn anxiety carvedilol Yes [id number] 3.125mg Take 1 [facility] 3.125 mg 7-22 tablet by ity of tablet 00:00: mouth 2 (two) Medical times Branch daily with meals. foLIC acid Yes [id number] 1mg Take 1 [facility] 1 mg tablet 7-22 tablet by ity of 00:00: mouth 00 daily. Medical Branch hydrOXYzine Yes [id number] 50mg Take 1 [facility] 50 mg 7-22 tablet by ity of tablet 00:00: mouth 3 00 (three) Medical times Branch daily as needed for Itching. metFORMIN Yes [id number] 500mg Take 1 [facility] 500 mg 7-22 tablet by ity of tablet 00:00: mouth 2 (two) Medical times Branch daily with meals. pantoprazol Yes [id number] 40mg Take 1 [facility] e 40 mg EC 7-22 tablet by ity of tablet 00:00: mouth 00 daily. Medical Branch clobetasol Yes [id number] Apply to [facility] 0.05 % 7-22 area(s) 2 ity of cream 00:00: (two) [place] 00 times Medical daily. Branch triamcinolo Yes [id number] Apply to [facility] ne 7-22 affected ity of acetonide 00:00: area(s) 2 [place] 0.1 % cream 00 (two) Medical times Branch daily. ALPRAZolam Yes [id number] 1mg Take 1 [facility] 1 mg tablet 7-22 tablet by ity of 00:00: mouth 2 (two) Medical times Branch daily. Prn anxiety carvedilol Yes [id number] 3.125mg Take 1 [facility] 3.125 mg 7-22 tablet by ity of tablet 00:00: mouth 2 (two) Medical times Branch daily with meals. foLIC acid Yes [id number] 1mg Take 1 [facility] 1 mg tablet 7-22 tablet by ity of 00:00: mouth 00 daily. Medical Branch hydrOXYzine Yes [id number] 50mg Take 1 [facility] 50 mg 7-22 tablet by ity of tablet 00:00: mouth 3 (three) Medical times Branch daily as needed for Itching. metFORMIN Yes [id number] 500mg Take 1 [facility] 500 mg 7-22 tablet by ity of tablet 00:00: mouth 2 (two) Medical times Branch daily with meals. pantoprazol Yes [id number] 40mg Take 1 [facility] e 40 mg EC 7-22 tablet by ity of tablet 00:00: mouth 00 daily. Medical Branch clobetasol Yes [id number] Apply to [facility] 0.05 % 7-22 area(s) 2 ity of cream 00:00: (two) times Medical daily. Branch triamcinolo Yes [id number] Apply to [facility] ne 7-22 affected ity of acetonide 00:00: area(s) 2 [place] 0.1 % cream 00 (two) Medical times Branch daily. ALPRAZolam Yes [id number] 1mg Take 1 [facility] 1 mg tablet 7-22 tablet by ity of 00:00: mouth 2 (two) Medical times Branch daily. Prn anxiety carvedilol Yes [id number] 3.125mg Take 1 [facility] 3.125 mg 7-22 tablet by ity of tablet 00:00: mouth (two) Medical times Branch daily with meals. foLIC acid Yes [id number] 1mg Take 1 [facility] 1 mg tablet 7-22 tablet by ity of 00:00: mouth 00 daily. Medical Branch hydrOXYzine Yes [id number] 50mg Take 1 [facility] 50 mg 7-22 tablet by ity of tablet 00:00: mouth 3 (three) Medical times Branch daily as needed for Itching. metFORMIN 2018- Yes [id number] 500mg Take 1 [facility] 500 mg 7-22 tablet by ity of tablet 00:00: mouth 2 (two) Medical times Branch daily with meals. pantoprazol 2019- Yes [id number] 40mg Take 1 [facility] e 40 mg EC 7-22 tablet by ity of tablet 00:00: mouth [place] 00 daily. Medical Branch clobetasol 2018- Yes [id number] Apply to [facility] 0.05 % 7-22 area(s) 2 ity of cream 00:00: (two) [place] 00 times Medical daily. Branch triamcinolo Yes [id number] Apply to [facility] ne 7-22 affected ity of acetonide 00:00: area(s) 2 [place] 0.1 % cream 00 (two) Medical times Branch daily. ALPRAZolam 2018- Yes [id number] 1mg Take 1 [facility] 1 mg tablet 7-22 tablet by ity of 00:00: mouth 2 (two) Medical times Branch daily. Prn anxiety carvedilol 2018- Yes [id number] 3.125mg Take 1 [facility] 3.125 mg 7-22 tablet by ity of tablet 00:00: mouth 2 (two) Medical times Branch daily with meals. foLIC acid 2018-0 Yes [id number] 1mg Take 1 [facility] 1 mg tablet 7-22 tablet by ity of 00:00: mouth [place] 00 daily. Medical Branch hydrOXYzine 2018-0 Yes [id number] 50mg Take 1 [facility] 50 mg 7-22 tablet by ity of tablet 00:00: mouth 3 (three) Medical times Branch daily as needed for Itching. metFORMIN 2018- Yes [id number] 500mg Take 1 [facility] 500 mg 7-22 tablet by ity of tablet 00:00: mouth 2 (two) Medical times Branch daily with meals. pantoprazol 2018-0 Yes [id number] 40mg Take 1 [facility] e 40 mg EC 7-22 tablet by ity of tablet 00:00: mouth [place] 00 daily. Medical Branch clobetasol 2018- Yes [id number] Apply to [facility] 0.05 % 7-22 area(s) 2 ity of cream 00:00: (two) [place] 00 times Medical daily. Branch triamcinolo Yes [id number] Apply to [facility] ne 7-22 affected ity of acetonide 00:00: area(s) 2 [place] 0.1 % cream 00 (two) Medical times Branch daily. ALPRAZolam Yes [id number] 1mg Take 1 [facility] 1 mg tablet 7-22 tablet by ity of 00:00: mouth 2 [place] 00 (two) Medical times Branch daily. Prn anxiety carvedilol Yes [id number] 3.125mg Take 1 [facility] 3.125 mg 7-22 tablet by ity of tablet 00:00: mouth 2 (two) Medical times Branch daily with meals. foLIC acid Yes [id number] 1mg Take 1 [facility] 1 mg tablet 7-22 tablet by ity of 00:00: mouth [place] 00 daily. Medical Branch hydrOXYzine Yes [id number] 50mg Take 1 [facility] 50 mg 7-22 tablet by ity of tablet 00:00: mouth 3 (three) Medical times Branch daily as needed for Itching. metFORMIN Yes [id number] 500mg Take 1 [facility] 500 mg 7-22 tablet by ity of tablet 00:00: mouth 2 (two) Medical times Branch daily with meals. pantoprazol Yes [id number] 40mg Take 1 [facility] e 40 mg EC 7-22 tablet by ity of tablet 00:00: mouth [place] 00 daily. Medical Branch clobetasol Yes [id number] Apply to [facility] 0.05 % 7-22 area(s) 2 ity of cream 00:00: (two) [place] 00 times Medical daily. Branch triamcinolo Yes [id number] Apply to [facility] ne 7-22 affected ity of acetonide 00:00: area(s) 2 [place] 0.1 % cream 00 (two) Medical times Branch daily. ALPRAZolam Yes [id number] 1mg Take 1 [facility] 1 mg tablet 7-22 tablet by ity of 00:00: mouth 2 [place] 00 (two) Medical times Branch daily. Prn anxiety carvedilol Yes [id number] 3.125mg Take 1 [facility] 3.125 mg 7-22 tablet by ity of tablet 00:00: mouth 2 (two) Medical times Branch daily with meals. foLIC acid 2018- Yes [id number] 1mg Take 1 [facility] 1 mg tablet 7-22 tablet by ity of 00:00: mouth 00 daily. Medical Branch hydrOXYzine Yes [id number] 50mg Take 1 [facility] 50 mg 7-22 tablet by ity of tablet 00:00: mouth 3 (three) Medical times Branch daily as needed for Itching. metFORMIN 2018- Yes [id number] 500mg Take 1 [facility] 500 mg 7-22 tablet by ity of tablet 00:00: mouth 2 (two) Medical times Branch daily with meals. pantoprazol 2018- Yes [id number] 40mg Take 1 [facility] e 40 mg EC 7-22 tablet by ity of tablet 00:00: mouth 00 daily. Medical Branch clobetasol Yes [id number] Apply to [facility] 0.05 % 7-22 area(s) 2 ity of cream 00:00: (two) times Medical daily. Branch triamcinolo Yes [id number] Apply to [facility] ne 7-22 affected ity of acetonide 00:00: area(s) 2 [place] 0.1 % cream 00 (two) Medical times Branch daily. ALPRAZolam Yes [id number] 1mg Take 1 [facility] 1 mg tablet 7-22 tablet by ity of 00:00: mouth 2 (two) Medical times Branch daily. Prn anxiety carvedilol 2018- Yes [id number] 3.125mg Take 1 [facility] 3.125 mg 7-22 tablet by ity of tablet 00:00: mouth 2 (two) Medical times Branch daily with meals. foLIC acid 2018- Yes [id number] 1mg Take 1 [facility] 1 mg tablet 7-22 tablet by ity of 00:00: mouth 00 daily. Medical Branch hydrOXYzine Yes [id number] 50mg Take 1 [facility] 50 mg 7-22 tablet by ity of tablet 00:00: mouth 3 (three) Medical times Branch daily as needed for Itching. metFORMIN 2018- Yes [id number] 500mg Take 1 [facility] 500 mg 7-22 tablet by ity of tablet 00:00: mouth 2 (two) Medical times Branch daily with meals. pantoprazol Yes [id number] 40mg Take 1 [facility] e 40 mg EC 7-22 tablet by ity of tablet 00:00: mouth [place] 00 daily. Medical Branch clobetasol 2018- Yes [id number] Apply to [facility] 0.05 % 7-22 area(s) 2 ity of cream 00:00: (two) [place] 00 times Medical daily. Branch triamcinolo Yes [id number] Apply to [facility] ne 7-22 affected ity of acetonide 00:00: area(s) 2 [place] 0.1 % cream 00 (two) Medical times Branch daily. ALPRAZolam 2018- Yes [id number] 1mg Take 1 [facility] 1 mg tablet 7-22 tablet by ity of 00:00: mouth 2 (two) Medical times Branch daily. Prn anxiety carvedilol 2018- Yes [id number] 3.125mg Take 1 [facility] 3.125 mg 7-22 tablet by ity of tablet 00:00: mouth 2 (two) Medical times Branch daily with meals. foLIC acid 2018- Yes [id number] 1mg Take 1 [facility] 1 mg tablet 7-22 tablet by ity of 00:00: mouth [place] 00 daily. Medical Branch furosemide 2018- Yes [id number] 40mg Take 1 [facility] 40 mg 7-22 tablet by ity of tablet 00:00: mouth [place] 00 daily. Medical Branch hydrOXYzine 2018- Yes [id number] 50mg Take 1 [facility] 50 mg 7-22 tablet by ity of tablet 00:00: mouth 3 (three) Medical times Branch daily as needed for Itching. metFORMIN 2018- Yes [id number] 500mg Take 1 [facility] 500 mg 7-22 tablet by ity of tablet 00:00: mouth 2 (two) Medical times Branch daily with meals. pantoprazol 2018- Yes [id number] 40mg Take 1 [facility] e 40 mg EC 7-22 tablet by ity of tablet 00:00: mouth [place] 00 daily. Medical Branch spironolact Yes [id number] 25mg Take 1 [facility] one 25 mg 7-22 tablet by ity o f tablet 00:00: mouth 2 (two) Medical times Branch daily. clobetasol 2018- Yes [id number] Apply to [facility] 0.05 % - area(s) 2 ity of cream 00:00: (two) [place] 00 times Medical daily. Branch triamcinolo Yes [id number] Apply to Univers ne 7-22 affected ity of acetonide 00:00: area(s) 2 [place] as 0.1 % cream 00 (two) Medical times Branch daily. furosemide 2019- No [id number] 40mg Take 1 [facility] 40 mg -17 01- tablet by ity of tablet 00:00: 00:00 mouth [place] 00 :00 daily. Medical Branch furosemide 2018- No [id number] 40mg Take 1 [facility] 40 mg 12-17 tablet by ity of tablet 00:00: 00:00 mouth [place] 00 :00 daily. [facility] Branch spironolact 2018- No [id number] 25mg Take 1 Univers one 25 mg 12-17- tablet by ity of tablet 00:00: 00:00 mouth 2 [place] 00 :00 (two) Medical times [place] daily. Pitavastati Yes 2mg Take 2 mg U nivers n (LIVALO) 6-18 by mouth ity o f 2 mg Tab 16:18: daily. [address] Pitavastati Yes 2mg Take 2 mg U nivers n (LIVALO) 6-18 by mouth ity o f 2 mg Tab 16:18: daily. [address] Pitavastati Yes 2mg Take 2 mg U nivers n (LIVALO) 6-18 by mouth ity o f 2 mg Tab 16:18: daily. [address] Pitavastati Yes 2mg Take 2 mg U nivers n (LIVALO) 6-18 by mouth ity o f 2 mg Tab 16:18: daily. [address] Pitavastati 0 Yes 2mg Take 2 mg U nivers n (LIVALO) 6-18 by mouth ity o f 2 mg Tab 16:18: daily. [address] Pitavastati 0 Yes 2mg Take 2 mg U nivers n (LIVALO) 6-18 by mouth ity o f 2 mg Tab 16:18: daily. [address] Pitavastati 2019-0 Yes 2mg Take 2 mg U nivers n (LIVALO) 6-18 by mouth ity o f 2 mg Tab 16:18: daily. [address] Pitavastati 2019-0 Yes 2mg Take 2 mg U nivers n (LIVALO) 6-18 by mouth ity o f 2 mg Tab 16:18: daily. [address] Pitavastati 2019-0 Yes 2mg Take 2 mg U nivers n (LIVALO) 6-18 by mouth ity o f 2 mg Tab 16:18: daily. [address] Pitavastati 2019-0 Yes 2mg Take 2 mg U nivers n (LIVALO) 6-18 by mouth ity o f 2 mg Tab 16:18: daily. [address] Pitavastati 2019-0 Yes 2mg Take 2 mg U nivers n (LIVALO) 6-18 by mouth ity o f 2 mg Tab 16:18: daily. [address] Pitavastati 2019-0 Yes 2mg Take 2 mg U nivers n (LIVALO) 6-18 by mouth ity o f 2 mg Tab 16:18: daily. [address] Pitavastati 2019-0 Yes 2mg Take 2 mg U nivers n (LIVALO) 6-18 by mouth ity o f 2 mg Tab 16:18: daily. [address] traMADOL 2019-0 Yes [id number] 50mg Take 1 Un epifanio (ULTRAM) 50 6-18 tablet by ity of mg tablet 00:00: mouth [place] 00 every 6 Medical (six) Branch hours as needed for Pain (scale 4-6). traMADOL 2019-0 Yes [id number] 50mg Take 1 Un epifanio (ULTRAM) 50 6-18 tablet by ity of mg tablet 00:00: mouth [place] 00 every 6 Medical (six) Branch hours as needed for Pain (scale 4-6). traMADOL 2019-0 Yes [id number] 50mg Take 1 Un epifanio (ULTRAM) 50 6-18 tablet by ity of mg tablet 00:00: mouth [place] 00 every 6 Medical (six) Branch hours as needed for Pain (scale 4-6). traMADOL 2019-0 Yes [id number] 50mg Take 1 Un epifanio (ULTRAM) 50 6-18 tablet by ity of mg tablet 00:00: mouth [place] 00 every 6 Medical (six) Branch hours as needed for Pain (scale 4-6). traMADOL 2019-0 Yes [id number] 50mg Take 1 Un epifanio (ULTRAM) 50 6-18 tablet by ity of mg tablet 00:00: mouth [place] 00 every 6 Medical (six) Branch hours as needed for Pain (scale 4-6). traMADOL 2019-0 Yes [id number] 50mg Take 1 Un epifanio (ULTRAM) 50 6-18 tablet by ity of mg tablet 00:00: mouth [place] 00 every 6 Medical (six) Branch hours as needed for Pain (scale 4-6). traMADOL 2019-0 Yes [id number] 50mg Take 1 Un epifanio (ULTRAM) 50 6-18 tablet by ity of mg tablet 00:00: mouth [place] 00 every 6 Medical (six) Branch hours as needed for Pain (scale 4-6). traMADOL 2019-0 Yes [id number] 50mg Take 1 Un epifanio (ULTRAM) 50 6-18 tablet by ity of mg tablet 00:00: mouth [place] 00 every 6 Medical (six) Branch hours as needed for Pain (scale 4-6). traMADOL 2019-0 Yes [id number] 50mg Take 1 Un epifanio (ULTRAM) 50 6-18 tablet by ity of mg tablet 00:00: mouth [place] 00 every 6 Medical (six) Branch hours as needed for Pain (scale 4-6). traMADOL 2019-0 Yes [id number] 50mg Take 1 Un epifanio (ULTRAM) 50 6-18 tablet by ity of mg tablet 00:00: mouth [place] 00 every 6 Medical (six) Branch hours as needed for Pain (scale 4-6). traMADOL 2019-0 Yes [id number] 50mg Take 1 Un epifanio (ULTRAM) 50 6-18 tablet by ity of mg tablet 00:00: mouth [place] 00 every 6 Medical (six) Branch hours as needed for Pain (scale 4-6). traMADOL 2019-0 Yes [id number] 50mg Take 1 Un epifanio (ULTRAM) 50 6-18 tablet by ity of mg tablet 00:00: mouth [place] 00 every 6 Medical (six) Branch hours as needed for Pain (scale 4-6). traMADOL 2019-0 Yes [id number] 50mg Take 1 Un epifanio (ULTRAM) 50 6-18 tablet by ity of mg tablet 00:00: mouth [place] 00 every 6 Medical (six) Branch hours as needed for Pain (scale 4-6). traMADOL 2019-0 Yes [id number] 50mg Take 1 Un epifanio (ULTRAM) 50 6-18 tablet by ity of mg tablet 00:00: mouth [place] 00 every 6 Medical (six) Branch hours as needed for Pain (scale 4-6). traMADOL 2019-0 Yes [id number] 50mg Take 1 Un epifanio (ULTRAM) 50 6-18 tablet by ity of mg tablet 00:00: mouth [place] 00 every 6 Medical (six) Branch hours as needed for Pain (scale 4-6). traMADOL 2019-0 Yes [id number] 50mg Take 1 Un epifanio (ULTRAM) 50 6-18 tablet by ity of mg tablet 00:00: mouth [place] 00 every 6 Medical (six) Branch hours as needed for Pain (scale 4-6). traMADOL 2019-0 Yes [id number] 50mg Take 1 Un epifanio (ULTRAM) 50 6-18 tablet by ity of mg tablet 00:00: mouth [place] 00 every 6 Medical (six) Branch hours as needed for Pain (scale 4-6). traMADOL 2019-0 Yes [id number] 50mg Take 1 Un epifanio (ULTRAM) 50 6-18 tablet by ity of mg tablet 00:00: mouth [place] 00 every 6 Medical (six) Branch hours as needed for Pain (scale 4-6). traMADOL 2019-0 Yes [id number] 50mg Take 1 Un epifanio (ULTRAM) 50 6-18 tablet by ity of mg tablet 00:00: mouth [place] 00 every 6 Medical (six) Branch hours as needed for Pain (scale 4-6). traMADOL 2019-0 Yes [id number] 50mg Take 1 Un epifanio (ULTRAM) 50 6-18 tablet by ity of mg tablet 00:00: mouth [place] 00 every 6 Medical (six) Branch hours as needed for Pain (scale 4-6). traMADOL 20192020- No [id number] 50mg Take 1 U nivers (ULTRAM) 50 6-18 05-19 tablet by it y of mg tablet 00:00: 00:00 mouth [place] 00 :00 every 6 Medical (six) Branch hours as needed for Pain (scale 4-6). traMADOL 2020- No [id number] 50mg Take 1 U nivers (ULTRAM) 50 6-18 05-19 tablet by it y of mg tablet 00:00: 00:00 mouth [place] 00 :00 every 6 Medical (six) Branch hours as needed for Pain (scale 4-6). blood sugar Yes [id number] Use BID, Univers diagnostic 4-23 DX E11.9 ity o f (ACCU-CHEK 00:00: (Brand [place] GUIDE) 00 upon Medical strip insurance Branch approval) Lancets Yes [id number] Use BID, U nivers Misc 4-23 DX E11.9 ity of 00:00: (Brand [place] 00 upon Medical insurance Branch approval) Blood-Gluco Yes [id number] Use BID, Univers se Meter 4-23 DX E11.9 ity of (ACCU-CHEK 00:00: (Brand [place] GUIDE 00 upon Medical GLUCOSE insurance Branch METER) Misc approval) ACCU-CHEK GUIDE blood sugar Yes [id number] Use BID, Univers diagnostic 4-23 DX E11.9 ity o f (ACCU-CHEK 00:00: (Brand [place] GUIDE) 00 upon Medical strip insurance Branch approval) Lancets Yes [id number] Use BID, U nivers Misc 4-23 DX E11.9 ity of 00:00: (Brand [place] 00 upon Medical insurance Branch approval) Blood-Gluco Yes [id number] Use BID, Univers se Meter 4-23 DX E11.9 ity of (ACCU-CHEK 00:00: (Brand [place] GUIDE 00 upon Medical GLUCOSE insurance Branch METER) Misc approval) ACCU-CHEK GUIDE blood sugar 2018- Yes [id number] Use BID, Univers diagnostic 4-23 DX E11.9 ity o f (ACCU-CHEK 00:00: (Brand [place] GUIDE) 00 upon Medical strip insurance Branch approval) Lancets Yes [id number] Use BID, U nivers Misc 4-23 DX E11.9 ity of 00:00: (Brand [place] 00 upon Medical insurance Branch approval) Blood-Gluco Yes [id number] Use BID, Univers se Meter 4-23 DX E11.9 ity of (ACCU-CHEK 00:00: (Brand [place] GUIDE 00 upon Medical GLUCOSE insurance Branch METER) Misc approval) ACCU-CHEK GUIDE blood sugar 2019-0 Yes [id number] Use BID, Univers diagnostic 4-23 DX E11.9 ity o f (ACCU-CHEK 00:00: (Brand [place] GUIDE) 00 upon Medical strip insurance Branch approval) Lancets 2019- Yes [id number] Use BID, U nivers Misc 4-23 DX E11.9 ity of 00:00: (Brand [place] 00 upon Medical insurance Branch approval) Blood-Gluco 2019- Yes [id number] Use BID, Univers se Meter 4-23 DX E11.9 ity of (ACCU-CHEK 00:00: (Brand [place] GUIDE 00 upon Medical GLUCOSE insurance Branch METER) Misc approval) ACCU-CHEK GUIDE blood sugar 2019- Yes [id number] Use BID, Univers diagnostic 4-23 DX E11.9 ity o f (ACCU-CHEK 00:00: (Brand [place] GUIDE) 00 upon Medical strip insurance Branch approval) Lancets 2019- Yes [id number] Use BID, U nivers Misc 4-23 DX E11.9 ity of 00:00: (Brand [place] 00 upon Medical insurance Branch approval) Blood-Gluco 2019- Yes [id number] Use BID, Univers se Meter 4-23 DX E11.9 ity of (ACCU-CHEK 00:00: (Brand [place] GUIDE 00 upon Medical GLUCOSE insurance Branch METER) Misc approval) ACCU-CHEK GUIDE blood sugar 2019- Yes [id number] Use BID, Univers diagnostic 4-23 DX E11.9 ity o f (ACCU-CHEK 00:00: (Brand [place] GUIDE) 00 upon Medical strip insurance Branch approval) Lancets 2019- Yes [id number] Use BID, U nivers Misc 4-23 DX E11.9 ity of 00:00: (Brand [place] 00 upon Medical insurance Branch approval) Blood-Gluco 2019- Yes [id number] Use BID, Univers se Meter 4-23 DX E11.9 ity of (ACCU-CHEK 00:00: (Brand [place] GUIDE 00 upon Medical GLUCOSE insurance Branch METER) Misc approval) ACCU-CHEK GUIDE blood sugar 2019- Yes [id number] Use BID, Univers diagnostic 4-23 DX E11.9 ity o f (ACCU-CHEK 00:00: (Brand [place] GUIDE) 00 upon Medical strip insurance Branch approval) Lancets 2019- Yes [id number] Use BID, U nivers Misc 4-23 DX E11.9 ity of 00:00: (Brand [place] 00 upon Medical insurance Branch approval) Blood-Gluco 2019- Yes [id number] Use BID, Univers se Meter 4-23 DX E11.9 ity of (ACCU-CHEK 00:00: (Brand [place] GUIDE 00 upon Medical GLUCOSE insurance Branch METER) Misc approval) ACCU-CHEK GUIDE blood sugar 2019- Yes [id number] Use BID, Univers diagnostic 4-23 DX E11.9 ity o f (ACCU-CHEK 00:00: (Brand [place] GUIDE) 00 upon Medical strip insurance Branch approval) Lancets 2019- Yes [id number] Use BID, U nivers Misc 4-23 DX E11.9 ity of 00:00: (Brand [place] 00 upon Medical insurance Branch approval) Blood-Gluco 2019- Yes [id number] Use BID, Univers se Meter 4-23 DX E11.9 ity of (ACCU-CHEK 00:00: (Brand [place] GUIDE 00 upon Medical GLUCOSE insurance Branch METER) Misc approval) ACCU-CHEK GUIDE blood sugar 2019-0 Yes [id number] Use BID, Univers diagnostic 4-23 DX E11.9 ity o f (ACCU-CHEK 00:00: (Brand [place] GUIDE) 00 upon Medical strip insurance Branch approval) Lancets 2019- Yes [id number] Use BID, U nivers Misc 4-23 DX E11.9 ity of 00:00: (Brand [place] 00 upon Medical insurance Branch approval) Blood-Gluco 2019- Yes [id number] Use BID, Univers se Meter 4-23 DX E11.9 ity of (ACCU-CHEK 00:00: (Brand [place] GUIDE 00 upon Medical GLUCOSE insurance Branch METER) Misc approval) ACCU-CHEK GUIDE blood sugar 2019-0 Yes [id number] Use BID, Univers diagnostic 4-23 DX E11.9 ity o f (ACCU-CHEK 00:00: (Brand [place] GUIDE) 00 upon Medical strip insurance Branch approval) Lancets 2019- Yes [id number] Use BID, U nivers Misc 4-23 DX E11.9 ity of 00:00: (Brand [place] 00 upon Medical insurance Branch approval) Blood-Gluco 2018- Yes [id number] Use BID, Univers se Meter 4-23 DX E11.9 ity of (ACCU-CHEK 00:00: (Brand [place] GUIDE 00 upon Medical GLUCOSE insurance Branch METER) Misc approval) ACCU-CHEK GUIDE blood sugar 2018- Yes [id number] Use BID, Univers diagnostic 4-23 DX E11.9 ity o f (ACCU-CHEK 00:00: (Brand [place] GUIDE) 00 upon Medical strip insurance Branch approval) Lancets Yes [id number] Use BID, U nivers Misc -23 DX E11.9 ity of 00:00: (Brand [place] 00 upon Medical insurance Branch approval) Blood-Gluco 2018- Yes [id number] Use BID, Univers se Meter 4-23 DX E11.9 ity of (ACCU-CHEK 00:00: (Brand [place] GUIDE 00 upon Medical GLUCOSE insurance Branch METER) Misc approval) ACCU-CHEK GUIDE Blood-Gluco Yes [id number] Use BID, Univers se Meter 4-23 DX E11.9 ity of (ACCU-CHEK 00:00: (Brand [place] GUIDE 00 upon Medical GLUCOSE insurance Branch METER) Misc approval) ACCU-CHEK GUIDE Blood-Gluco 2018- Yes [id number] Use BID, Univers se Meter 4-23 DX E11.9 ity of (ACCU-CHEK 00:00: (Brand [place] GUIDE 00 upon Medical GLUCOSE insurance Branch METER) Misc approval) ACCU-CHEK GUIDE Blood-Gluco 2018- Yes [id number] Use BID, Univers se Meter 4-23 DX E11.9 ity of (ACCU-CHEK 00:00: (Brand [place] GUIDE 00 upon Medical GLUCOSE insurance Branch METER) Misc approval) ACCU-CHEK GUIDE Blood-Gluco 2018- Yes [id number] Use BID, Univers se Meter 4-23 DX E11.9 ity of (ACCU-CHEK 00:00: (Brand [place] GUIDE 00 upon Medical GLUCOSE insurance Branch METER) Misc approval) ACCU-CHEK GUIDE Blood-Gluco 2018-0 Yes [id number] Use BID, Univers se Meter 4-23 DX E11.9 ity of (ACCU-CHEK 00:00: (Brand [place] GUIDE 00 upon Medical GLUCOSE insurance Branch METER) Misc approval) ACCU-CHEK GUIDE Blood-Gluco 2019-0 Yes [id number] Use BID, Univers se Meter 4-23 DX E11.9 ity of (ACCU-CHEK 00:00: (Brand [place] GUIDE 00 upon Medical GLUCOSE insurance Branch METER) Misc approval) ACCU-CHEK GUIDE Blood-Gluco 2019-0 Yes [id number] Use BID, Univers se Meter 4-23 DX E11.9 ity of (ACCU-CHEK 00:00: (Brand [place] GUIDE 00 upon Medical GLUCOSE insurance Branch METER) Misc approval) ACCU-CHEK GUIDE Blood-Gluco 2019-0 Yes [id number] Use BID, Univers se Meter -23 DX E11.9 ity of (ACCU-CHEK 00:00: (Brand [place] GUIDE 00 upon Medical GLUCOSE insurance Branch METER) Misc approval) ACCU-CHEK GUIDE blood sugar 2019-0 Yes [id number] Use BID, Univers diagnostic 4-23 DX E11.9 ity o f (ACCU-CHEK 00:00: (Brand [place] GUIDE) 00 upon Medical strip insurance Branch approval) Lancets 2019-0 Yes [id number] Use BID, U nivers Misc -23 DX E11.9 ity of 00:00: (Brand [place] 00 upon Medical insurance Branch approval) Blood-Gluco 2019-0 Yes [id number] Use BID, Univers se Meter -23 DX E11.9 ity of (ACCU-CHEK 00:00: (Brand [place] GUIDE 00 upon Medical GLUCOSE insurance Branch METER) Misc approval) ACCU-CHEK GUIDE Blood-Gluco 2019-0 2020- No [id number] Use BID, Univers se Meter 23 05-19 DX E11.9 ity of (ACCU-CHEK 00:00: 00:00 ([place] 00 :00 upon Medical GLUCOSE insurance Branch METER) Misc approval) ACCU-CHEK GUIDE Blood-Gluco 2019-0 202- No [id number] Use BID, Univers se Meter 23 05-19 DX E11.9 ity of (ACCU-CHEK 00:00: 00:00 ([place] 00 :00 upon Medical GLUCOSE [place] Branch METER[place] [facility] ACCU-CHEK GUIDE lactulose 2019-0 Yes [id number] 15mL Take 15 mL Univers 10 gram/15 4-08 by mouth 3 ity of mL solution 00:00: (three) [place] 00 times Medical daily. Branch lactulose 2019-0 Yes [id number] 15mL Take 15 mL Univers 10 gram/15 4-08 by mouth 3 ity of mL solution 00:00: (three) [place] 00 times Medical daily. Branch lactulose 2019-0 Yes [id number] 15mL Take 15 mL Univers 10 gram/15 4-08 by mouth 3 ity of mL solution 00:00: (three) [place] 00 times Medical daily. Branch lactulose 2019-0 Yes [id number] 15mL Take 15 mL Univers 10 gram/15 4-08 by mouth 3 ity of mL solution 00:00: (three) [place] 00 times Medical daily. Branch lactulose 2019-0 Yes [id number] 15mL Take 15 mL Univers 10 gram/15 4-08 by mouth 3 ity of mL solution 00:00: (three) [place] 00 times Medical daily. Branch lactulose 2019-0 Yes [id number] 15mL Take 15 mL Univers 10 gram/15 4-08 by mouth 3 ity of mL solution 00:00: (three) [place] 00 times Medical daily. Branch lactulose 2019-0 Yes [id number] 15mL Take 15 mL Univers 10 gram/15 4-08 by mouth 3 ity of mL solution 00:00: (three) [place] 00 times Medical daily. Branch lactulose 2019-0 Yes [id number] 15mL Take 15 mL Univers 10 gram/15 4-08 by mouth 3 ity of mL solution 00:00: (three) [place] 00 times Medical daily. Branch lactulose 2019-0 Yes [id number] 15mL Take 15 mL Univers 10 gram/15 4-08 by mouth 3 ity of mL solution 00:00: (three) [place] 00 times Medical daily. Branch lactulose 2019-0 Yes [id number] 15mL Take 15 mL Univers 10 gram/15 4-08 by mouth 3 ity of mL solution 00:00: (three) [place] 00 times Medical daily. Branch lactulose 2019-0 Yes [id number] 15mL Take 15 mL Univers 10 gram/15 4-08 by mouth 3 ity of mL solution 00:00: (three) [place] 00 times Medical daily. Branch lactulose 2019-0 Yes [id number] 15mL Take 15 mL Univers 10 gram/15 4-08 by mouth 3 ity of mL solution 00:00: (three) [place] 00 times Medical daily. Branch lactulose 2019-0 Yes [id number] 15mL Take 15 mL Univers 10 gram/15 4-08 by mouth 3 ity of mL solution 00:00: (three) [place] 00 times Medical daily. Branch furosemide 2019-0 Yes [id number] 40mg Take 1 [facility] 40 mg 2-12 tablet by ity of tablet 00:00: mouth [place] 00 every Medical morning Branch and evening. furosemide 2019-0 Yes [id number] 40mg Take 1 Univers 40 mg 2-12 tablet by ity of tablet 00:00: mouth [place] 00 every Medical morning Branch and evening. furosemide 2019-0 Yes [id number] 40mg Take 1 [facility] 40 mg 2-12 tablet by ity of tablet 00:00: mouth [place] 00 every Medical morning Branch and evening. furosemide 2019-0 Yes [id number] 40mg Take 1 [facility] 40 mg 2-12 tablet by ity of tablet 00:00: mouth [place] 00 every Medical morning Branch and evening. furosemide 2019-0 Yes [id number] 40mg Take 1 Univers 40 mg 2-12 tablet by ity of tablet 00:00: mouth [place] 00 every Medical morning Branch and evening. furosemide 2019-0 Yes [id number] 40mg Take 1 Univers 40 mg 2-12 tablet by ity of tablet 00:00: mouth [place] 00 every Medical morning Branch and evening. furosemide 2019-0 Yes [id number] 40mg Take 1 [facility] 40 mg 2-12 tablet by ity of tablet 00:00: mouth [place] 00 every Medical morning Branch and evening. furosemide 2019-0 Yes [id number] 40mg Take 1 [facility] 40 mg 2-12 tablet by ity of tablet 00:00: mouth [place] 00 every Medical morning Branch and evening. furosemide 2019-0 Yes [id number] 40mg Take 1 [facility] 40 mg 2-12 tablet by ity of tablet 00:00: mouth [place] 00 every Medical morning Branch and evening. furosemide 2019-0 Yes [id number] 40mg Take 1 [facility] 40 mg 2-12 tablet by ity of tablet 00:00: mouth [place] 00 every Medical morning Branch and evening. furosemide 2019-0 Yes [id number] 40mg Take 1 Univers 40 mg 2-12 tablet by ity of tablet 00:00: mouth [place] 00 every Medical morning Branch and evening. furosemide 2019-0 Yes [id number] 40mg Take 1 [facility] 40 mg 2-12 tablet by ity of tablet 00:00: mouth [place] 00 every Medical morning Branch and evening. furosemide 2019-0 Yes [id number] 40mg Take 1 Univers 40 mg 2-12 tablet by ity of tablet 00:00: mouth [place] 00 every Medical morning Branch and evening. lisinopril 2019-0 Yes [id number] 20mg Take 1 Univers 20 mg 2-06 tablet by ity of tablet 00:00: mouth [place] 00 daily. Medical Branch lisinopril 2019-0 Yes [id number] 20mg Take 1 Univers 20 mg 2-06 tablet by ity of tablet 00:00: mouth [place] 00 daily. Medical Branch lisinopril 2019-0 Yes [id number] 20mg Take 1 Univers 20 mg 2-06 tablet by ity of tablet 00:00: mouth [place] 00 daily. Medical Branch lisinopril 2019-0 Yes [id number] 20mg Take 1 Univers 20 mg 2-06 tablet by ity of tablet 00:00: mouth [place] 00 daily. Medical Branch lisinopril 2019-0 Yes [id number] 20mg Take 1 Univers 20 mg 2-06 tablet by ity of tablet 00:00: mouth [place] 00 daily. Medical Branch lisinopril 2019-0 Yes [id number] 20mg Take 1 Univers 20 mg 2-06 tablet by ity of tablet 00:00: mouth [place] 00 daily. Medical Branch lisinopril 2019-0 Yes [id number] 20mg Take 1 Univers 20 mg 2-06 tablet by ity of tablet 00:00: mouth [place] 00 daily. Medical Branch lisinopril 2019-0 Yes [id number] 20mg Take 1 Univers 20 mg 2-06 tablet by ity of tablet 00:00: mouth [place] 00 daily. Medical Branch lisinopril 2019-0 Yes [id number] 20mg Take 1 [facility] 20 mg 2-06 tablet by ity of tablet 00:00: mouth [place] 00 daily. Medical Branch lisinopril 2019-0 Yes [id number] 20mg Take 1 Univers 20 mg 2-06 tablet by ity of tablet 00:00: mouth [place] 00 daily. [facility] Branch lisinopril 20190 Yes [id number] 20mg Take 1 Univers 20 mg 2-06 tablet by ity of tablet 00:00: mouth [place] 00 daily. [facility] lisinopril 0 Yes [id number] 20mg Take 1 Univers 20 mg 2-06 tablet by ity of tablet 00:00: mouth [place] 00 daily. [facility] lisinopril 0 Yes [id number] 20mg Take 1 Univers 20 mg 2-06 tablet by ity of tablet 00:00: mouth [place] 00 daily. [facility] No known No Univers medications ity of [facility] No known No [facility] F[facility] Immunization Date Status Comments [facility] e Immunization Name Name SARS-COV-2 COVID-19 2021-02-05 Completed Unive rsity of PFIZER VACCINE 00:00:00 [facility] SARS-COV-2 COVID-19 2021-02-05 Completed Unive rsity of PFIZER VACCINE 00:00:00 [facility] SARS-COV-2 COVID-19 2021-02-05 Completed Unive rsity of PFIZER VACCINE 00:00:00 [facility] SARS-COV-2 COVID-19 2021-02-05 Completed Unive rsity of PFIZER VACCINE 00:00:00 [facility] SARS-COV-2 COVID-19 2021-02-05 Completed Unive rsity of PFIZER VACCINE 00:00:00 [facility] SARS-COV-2 COVID-19 2021-02-05 Completed Unive rsity of PFIZER VACCINE 00:00:00 [facility] Influenza Virus 2018-04-11 Completed Universit y of Vaccine Quad IM 3+ 00:00:00 [facility] Influenza Virus 2018-04-11 Completed Universit y of Vaccine Quad IM 3+ 00:00:00 [facility] Influenza Virus 2018-04-11 Completed Universit y of Vaccine Quad IM 3+ 00:00:00 [facility] Influenza Virus 2018-04-11 Completed Universit y of Vaccine Quad IM 3+ 00:00:00 [facility] Influenza Virus 2018-04-11 Completed Universit y of Vaccine Quad IM 3+ 00:00:00 [facility] Influenza Virus 2018-04-11 Completed Universit y of Vaccine Quad IM 3+ 00:00:00 [facility] Influenza Virus 2018-04-11 Completed Universit y of Vaccine Quad IM 3+ 00:00:00 [facility] Influenza Virus 2018-04-11 Completed Universit y of Vaccine Quad IM 3+ 00:00:00 [facility] Influenza Virus 2018-04-11 Completed Universit y of Vaccine Quad IM 3+ 00:00:00 [facility] Influenza Virus 2018-04-11 Completed Universit y of Vaccine Quad IM 3+ 00:00:00 [facility] Influenza Virus 2018-04-11 Completed Universit y of Vaccine Quad IM 3+ 00:00:00 [facility] Influenza Virus 2018-04-11 Completed Universit y of Vaccine Quad IM 3+ 00:00:00 [facility] Influenza Virus 2018-04-11 Completed Universit y of Vaccine Quad IM 3+ 00:00:00 [facility] Influenza Virus 2018-04-11 Completed Universit y of Vaccine Quad IM 3+ 00:00:00 [facility] Influenza Virus 2018-04-11 Completed Universit y of Vaccine Quad IM 3+ 00:00:00 [facility] Influenza Virus 2018-04-11 Completed Universit y of Vaccine Quad IM 3+ 00:00:00 [facility] Influenza Virus 2018-04-11 Completed Universit y of Vaccine Quad IM 3+ 00:00:00 [facility] Influenza Virus 2018-04-11 Completed Universit y of Vaccine Quad IM 3+ 00:00:00 [facility] Influenza Virus 2018-04-11 Completed Universit y of Vaccine Quad IM 3+ 00:00:00 [facility] Influenza Virus 2018-04-11 Completed Universit y of Vaccine Quad IM 3+ 00:00:00 [facility] Influenza Virus 2018-04-11 Completed Universit y of Vaccine Quad IM 3+ 00:00:00 [facility] Influenza Virus 2018-04-11 Completed Universit y of Vaccine Quad IM 3+ 00:00:00 [facility] Influenza Virus 2018-04-11 Completed Universit y of Vaccine Quad IM 3+ 00:00:00 [facility] Influenza Virus 2018-04-11 Completed Universit y of Vaccine Quad IM 3+ 00:00:00 [facility] Influenza Virus 2018-04-11 Completed Universit y of Vaccine Quad IM 3+ 00:00:00 [facility] Influenza Virus 2018-04-11 Completed Universit y of Vaccine Quad IM 3+ 00:00:00 [facility] Influenza Virus 2018-04-11 Completed Universit y of Vaccine Quad IM 3+ 00:00:00 [facility] Influenza Virus 2018-04-11 Completed Universit y of Vaccine Quad IM 3+ 00:00:00 [facility] Influenza Virus 2018-04-11 Completed Universit y of Vaccine Quad IM 3+ 00:00:00 [facility] Influenza Virus 2018-04-11 Completed Universit y of Vaccine Quad IM 3+ 00:00:00 [facility] Td 2016-09-18 Completed University of 00:00:00 [facility] Td 2016-09-18 Completed University of 00:00:00 [facility] Td 2016-09-18 Completed University of 00:00:00 [facility] Td 2016-09-18 Completed University of 00:00:00 [facility] Td 2016-09-18 Completed University of 00:00:00 [facility] Td 2016-09-18 Completed University of 00:00:00 [facility] Td 2016-09-18 Completed University of 00:00:00 [facility] Td 2016-09-18 Completed University of 00:00:00 [facility] Td 2016-09-18 Completed University of 00:00:00 [facility] Td 2016-09-18 Completed University of 00:00:00 [facility] Td 2016-09-18 Completed University of 00:00:00 [facility] Td 2016-09-18 Completed University of 00:00:00 [facility] Td 2016-09-18 Completed University of 00:00:00 [facility] Td 2016-09-18 Completed University of 00:00:00 [facility] Td 2016-09-18 Completed University of 00:00:00 [facility] Td 2016-09-18 Completed University of 00:00:00 [facility] Td 2016-09-18 Completed University of 00:00:00 [facility] Td 2016-09-18 Completed University of 00:00:00 [facility] Td 2016-09-18 Completed University of 00:00:00 [facility] Td 2016-09-18 Completed University of 00:00:00 [facility] Td 2016-09-18 Completed University of 00:00:00 [facility] Td 2016-09-18 Completed University of 00:00:00 [facility] Td 2016-09-18 Completed University of 00:00:00 [facility] Td 2016-09-18 Completed University of 00:00:00 [facility] Td 2016-09-18 Completed University of 00:00:00 [facility] Td 2016-09-18 Completed University of 00:00:00 [facility] Td 2016-09-18 Completed University of 00:00:00 [facility] Td 2016-09-18 Completed University of 00:00:00 [facility] Td 2016-09-18 Completed University of 00:00:00 [facility] Td 2016-09-18 Completed University of 00:00:00 [facility] Td 2016-09-18 Completed University of 00:00:00 [facility] Td 2016-09-18 Completed University of 00:00:00 [facility] Vital Signs Vital Name Observation Time Observation Value Comments Source HEIGHT 2019-12-24 167.6 cm 00:00:00 WEIGHT 2019-12-24 103 kg 00:00:00 Systolic blood 2021-04-01 119 mm[Hg] University of pressure 20:00:00 [facility] Diastolic blood 2021-04-01 65 mm[Hg] [place] o f pressure 20:00:00 [facility] Heart rate 2021-04-01 57 /min University of 20:00:00 [facility] Respiratory rate 2021-04-01 16 /min University of 20:00:00 [facility] Oxygen saturation 2021-04-01 100 /min Simultaneous University in Arterial blood 20:00:00 filing. User may [facility] by Pulse oximetry not have seen Branch previous data. Body temperature 2021-04-01 36.22 Corrina University of 18:07:00 [facility] Body height 2021-04-01 166 cm University of 18:07:00 [facility] Body weight 2021-04-01 104.327 kg University of 18:07:00 [facility] BMI 2021-04-01 37.86 kg/m2 University of 18:07:00 [facility] HEIGHT 2021-03-12 167.6 cm 07:20:00 WEIGHT 2021-03-12 [...] 2020-08-19 132 mm[Hg] University of pressure 14:00:00 [facility] Diastolic blood 2020-08-19 77 mm[Hg] University o f pressure 14:00:00 [facility] Heart rate 2020-08-19 71 /min University 14:00:00 [facility] Respiratory rate 2020-08-19 18 /min University 14:00:00 [facility] Oxygen saturation 2020-08-19 99 /min [facility] Arterial blood 14:00:00 [facility] by Pulse oximetry [place] Body temperature 2020-08-19 36.94 Corrina University of 12:32:00 [facility] Body weight 2020-08-19 106.142 kg University of 12:32:00 [facility] BMI 2020-08-19 37.77 kg/m2 University of 12:32:00 [facility] Systolic blood 2020-08-19 132 mm[Hg] University of pressure 14:00:00 [facility] Diastolic blood 2020-08-19 77 mm[Hg] University o f pressure 14:00:00 [facility] Heart rate 2020-08-19 71 /min University of 14:00:00 [facility] Respiratory rate 2020-08-19 18 /min University of 14:00:00 [facility] Oxygen saturation 2020-08-19 99 /min University of in Arterial blood 14:00:00 [facility] jeevan by Pulse oximetry Branch Body temperature 2020-08-19 36.94 Corrina University of 12:32:00 [facility] Body weight 2020-08-19 106.142 kg University of 12:32:00 [facility] BMI 2020-08-19 37.77 kg/m2 University of 12:32:00 [facility] Systolic blood 2020-06-26 120 mm[Hg] University of pressure 03:00:00 [facility] Diastolic blood 2020-06-26 103 mm[Hg] University o f pressure 03:00:00 [facility] Heart rate 2020-06-26 83 /min University of 03:00:00 [facility] Respiratory rate 2020-06-26 20 /min University of 03:00:00 [facility] Oxygen saturation 2020-06-26 99 /min University of in Arterial blood 03:00:00 [facility] by Pulse oximetry Branch Body temperature 2020-06-25 36.44 Corrina University of 23:03:00 [facility] Body height 2020-06-25 167.6 cm University of 23:03:00 [facility] Body weight 2020-06-25 105.235 kg University of 23:03:00 [facility] BMI 2020-06-25 37.45 kg/m2 University of 23:03:00 [facility] Systolic blood 2020-06-26 120 mm[Hg] University of pressure 03:00:00 [facility] Diastolic blood 2020-06-26 103 mm[Hg] University o f pressure 03:00:00 [facility] Heart rate 2020-06-26 83 /min University of 03:00:00 [facility] Respiratory rate 2020-06-26 20 /min University of 03:00:00 [facility] Oxygen saturation 2020-06-26 99 /min University of in Arterial blood 03:00:00 [facility] by Pulse oximetry Branch Body temperature 2020-06-25 36.44 Corrina University of 23:03:00 [facility] Body height 2020-06-25 167.6 cm University of 23:03:00 [facility] Body weight 2020-06-25 105.235 kg University of 23:03:00 [facility] BMI 2020-06-25 37.45 kg/m2 University of 23:03:00 [facility] HEIGHT 2020-03-13 167.6 cm 10:38:00 WEIGHT 2020-03-13 108.41 kg 10:38:00 HEIGHT 2020-03-13 167.6 cm 10:38:00 WEIGHT 2020-03-13 108.41 kg 10:38:00 HEIGHT 2019-12-24 167.6 cm 00:00:00 WEIGHT 2019-12-24 103 kg 00:00:00 Systolic blood 2019-01-21 131 mm[Hg] University of pressure 21:03:00 [facility] Diastolic blood 2019-01-21 79 mm[Hg] University o f pressure 21:03:00 [facility] Heart rate 2019-01-21 73 /min University 21:03:00 [facility] Body temperature 2019-01-21 37.06 Corrina University of 21:03:00 [facility] Respiratory rate 2019-01-21 18 /min University of 21:03:00 [facility] Body weight 2019-01-21 103.103 kg University of 21:03:00 [facility] BMI 2019-01-21 36.69 kg/m2 University of 21:03:00 [facility] Oxygen saturation 2019-01-21 98 /min [facility] in Arterial blood 21:03:00 [facility] by Pulse oximetry Branch Systolic blood 2019-01-21 131 mm[Hg] University of pressure 21:03:00 [facility] Diastolic blood 2019-01-21 79 mm[Hg] University o f pressure 21:03:00 [facility] Heart rate 2019-01-21 73 /min University of 21:03:00 [facility] Body temperature 2019-01-21 37.06 Corrina University of 21:03:00 [facility] Respiratory rate 2019-01-21 18 /min University of 21:03:00 [facility] Body weight 2019-01-21 103.103 kg University of 21:03:00 [facility] BMI 2019-01-21 36.69 kg/m2 University of 21:03:00 [facility] Oxygen saturation 2019-01-21 98 /min [facility] in Arterial blood 21:03:00 [facility] jeevan by Pulse oximetry Branch Procedures Procedure Date / Time Performing Clinician Source Performed TROPONIN I 2021-04-01 19:14:00 Singer [facility] COMP. METABOLIC PANEL 2021-04-01 19:14:00 [facility]ant [facility] ([id number] Medical [place] AMMONIA, PLASMA 2021-04-01 19:12:00 Singer [facility] CBC WITH DIFF 2021-04-01 19:12:00 Singer [facility] XR CHEST 1 VW 2021-04-01 18:51:09 Singer [facility] URINALYSIS 2021-04-01 18:40:00 Singer [facility] PROTHROMBIN TIME / INR 2021-04-01 18:30:00 Singer [facility] CONSENT/REFUSAL FOR 2021-04-01 17:58:35 Doctor Unassigned, [facility] DIAGNOSIS AND TREATMENT [place] [facility] SARS-COV-2 COVID-19 2021-02-05 15:47:[address] [facility], [facility] VACCINE,0.3ML,IM (PFIZER) [facility] XR CHEST 1 VW 2020-08-19 13:29:53 Wendy Bull [facility] HB ECG ROUTINE & RHYTHM 2020-08-19 13:05:46 [facility] 2020-08-19 13:01:00 Wendy Bull [facility] TROPONIN I 2020-08-19 13:01:00 Wendy Bull [facility] HEPATIC FUNCTION PANEL 2020-08-19 13:01:00 [id number] (ALB,T.PRO,BILI Medical Branch T,BU/BC,ALT,AST,ALK PHOS) BASIC METABOLIC PANEL 2020-08-19 13:01:00 Wendy Bull [facility] (NA, K, CL, CO2, GLUCOSE, Medica l Branch BUN, CREATININE, CA) CBC WITH DIFF 2020-08-19 13:01:00 Wendy Bull [facility] N-TERMINAL PRO-BNP 2020-08-19 13:01:00 Wendy Bull [facility] COVID-19 (ID NOW RAPID 2020-08-19 13:01:00 Wendy Bull [facility] TESTING) Medical Branch CONSENT/REFUSAL FOR 2020-08-19 12:21:55 Doctor Unassigned, [facility] DIAGNOSIS AND TREATMENT [place] [facility] AMMONIA, PLASMA 2020-06-26 01:01:00 Carolina San [facility] PROTHROMBIN TIME / INR 2020-06-26 01:01:00 Carolina San [facility] XR CHEST 1 VW 2020-06-25 23:46:19 Carolina San [facility] LIPASE 2020-06-25 23:43:00 Carolina San [facility] MAGNESIUM 2020-06-25 23:43:00 Carolina San [facility] TROPONIN I 2020-06-25 23:43:00 Carolina San [facility] HEPATIC FUNCTION PANEL 2020-06-25 23:43:00 Carolina San [facility] ([id number]) (ALB,T.PRO,BILI [facility] Branch T,BU/BC,ALT,AST,ALK PHOS) BASIC METABOLIC PANEL 2020-06-25 23:43:00 Carolina San [facility] (NA, K, CL, CO2, GLUCOSE, Medica l Branch BUN, CREATININE, CA) CBC WITH DIFF 2020-06-25 23:43:00 Carolina San [facility] URINALYSIS 2020-06-25 23:43:00 Carolina San [facility] N-TERMINAL PRO-BNP 2020-06-25 23:43:00 Carolina San [facility] COVID-19 (ID NOW RAPID 2020-06-25 23:43:00 Carolina San [facility] TESTING) Medical Branch NOTICE OF PRIVACY 2020-06-25 22:41:45 Doctor Nkechi, [facility] PRACTICES [place] [facility] CONSENT/REFUSAL FOR 2020-06-25 22:41:29 Doctor Trung Arboleda [facility] DIAGNOSIS AND TREATMENT [facility] HOME HEALTH - OTHER 2019-02-08 05:01:00 [facility] 2019-01-31 05:01:00 Trung Conte [facility] POCT HEMOGLOBIN A1C TEST 2019-01-21 21:30:00 Brenda Rod [facility] DME/SUPPLY JUSTIFICATION 2019-01-17 05:01:00 Doctor Arboleda [facility] HEALTH - OTHER 2019-01-07 05:01:00 [facility] 2019-01-02 05:01:00 Trung Conte [facility] HEALTH - OTHER 2018-12-28 05:01:00 Trung Conte [facility] INSURANCE CORRESPONDENCE 2018-12-17 05:01:00 Doctor Arboleda [facility] PATIENT QUESTIONNAIRE 2016-10-19 05:01:00 Gisela Conte [facility] SCANNED LAB RESULTS 2016-10-13 05:01:00 Doctor [facility]boleda [facility] Encounters Start End Encounter Admission Attending Care Care Encounter Source Date/Time Date/Time Type Type Clinicians Facility Department ID 2021-03-28 Emergency [facility] [id number] Univers 08:04:12 ity [facility] 2021-03-27 Emergency [facility] [id number] Univers 20:25:53 [facility] 2020-09-24 Inpatient [place], HCAP[facility] ENDO [id number] [facility] 08:30:00 Anil [id number] [facility] 2019-12-24 Inpatient ER JOSÉ ANTONIO MYERS General Med [id number] SLE 16:51:00 JOSH 2021-07-07 2021-07-07 Outpatient [facility] [id number] SLE 00:00:00 00:00:00 2021-05-24 2021-05-24 Refcynthia Shabazz [facility] 1.2.840.114 [id number] Univers 00:00:00 00:00:00 Pearl VENEGAS [id number] i [id number] [phone] [place] [address] 2021-05-12 2021-05-12 Outpatient EL SLE SLE [id number] SLE 00:00:00 00:00:00 2021-04-29 2021-04-29 Outpatient EL KHADERI, SLEH SLEH [id number] SLE 10:09:55 23:59:[address] [facility] 2021-04-29 2021-04-29 Outpatient EL KHADERI, SLEH SLEH [id number] SLE 10:09:10 10:08:[address] [facility] 2021-04-29 2021-04-29 Outpatient EL KHADERI, SLE SLEH [id number] SLE 09:35:14 09:59:[address] [facility] 2021-04-29 2021-04-29 Outpatient EL KHADERI, SLEH SLEH [id number] SLE 09:35:00 09:34:[address] [facility] 2021-04-29 2021-04-29 Outpatient EL SLEH SLEH [id number] SLE 08:33:09 08:33:09 2021-04-29 2021-04-29 Outpatient KHADERI, SLE SLEH [id number] SLE 00:00:00 00:00:[address] [facility] 2021-04-02 2021-04-02 [facility]phone [facility] [id number] [facility] 00:00:00 00:00:00 Pearl VENEGAS [id number] [id number] [phone] [address] 2021-04-01 2021-04-01 Emergency X SINGER LANUBIA ERT [id number] Univers 13:07:00 15:37:00 CHANDRAKANT schmitt [facility] 2021-04-01 2021-04-01 Emergency Singer [facility] [id number] Univers 13:07:00 15:37:00 Chandrakant VENEGAS [id number] i [id number] [id number] [facility] 084 [place] 2021-03-16 2021-03-16 [facility] 1.2.840.114 [id number] Univers 00:00:00 00:00:00 Pearl Venegas [id number] i [id number] [phone] Ga dical nal 044 [facility] 2021-03-15 2021-03-15 [facility] 1.2.840.114 [id number] Univers 00:00:00 00:00:00 Pearl Venegas [id number] [id number] [phone] Ga dical nal 044 [facility] 2021-03-12 2021-03-12 Outpatient PING [place], [facility] Radiology [id number] SLEH 06:21:33 15:05:[address] [facility] 2021-02-23 2021-02-23 Outpatient PING WASHINGTON [facility] SLE [id number] SLEH 00:00:00 23:59:[address] [facility] 2021-02-23 2021-02-23 Outpatient SLEH SLE [id number] SLEH 10:02:57 10:02:57 2021-02-05 2021-02-05 Outpatient Juan J GUIDRY [facility] [id number] Univers 10:50:00 10:50:00 TAM schmitt [facility] 2021-02-05 2021-02-05 Imm/Inj Nurse, Adc Pob Immunization [facility] 1.2.840.114 [id number] Univers 10:46:45 10:47:11 Visit Tam Guidry [id number] .10 [id number] [phone] Ga dical nal 421 [facility] 2021-02-03 2021-02-03 Outpatient SLEH SLE [id number] SLEH 00:00:00 00:00:00 2021-01-21 2021-01-21 Outpatient MARISAADERI, SLE SLEH [id number] SLEH 00:00:00 00:00:[address] [facility] 2021-01-21 2021-01-21 Outpatient RENNYRI, SLEH SLEH [id number] SLEH 00:00:00 00:00:[address] [facility] 2021-01-21 2021-01-21 Outpatient EL SLEH SLEH [id number] SLEH 00:00:00 00:00:00 2020-12-30 2020-12-30 Outpatient SLEH SLEH [id number] SLEH 00:00:00 00:00:00 2020-12-17 2020-12-17 Outpatient EL SLEH SLEH [id number] SLEH 00:00:00 00:00:00 2020-12-17 2020-12-17 Outpatient PADMINI SLE SLE [id number] SLEH 00:00:00 00:00:[address] [facility] 2020-12-17 2020-12-17 Outpatient PADMINI SLE SLE [id number] SLEH 00:00:00 00:00:[address] [facility] 2020-11-26 2020-11-26 Outpatient EL SLEH SLEH [id number] SLEH 00:00:00 00:00:00 2020-11-04 2020-11-04 Outpatient EL SLEH SLEH [id number] SLEH 00:00:00 00:00:00 2020-10-28 2020-10-28 Outpatient EL SLEH SLEH [id number] SLEH 00:00:00 00:00:00 2020-10-28 2020-10-28 Outpatient SLE SLEH [id number] SLEH 00:00:00 00:00:00 2020-10-21 2020-10-21 Outpatient SLEH SLEH [id number] SLEH 00:00:00 00:00:00 2020-10-21 2020-10-21 Telephone Gabbyconniesavana [facility] 1.2.840.114 [id number] Univers 00:00:00 00:00:00 Pearl Venegas [id number] aung [id number] [phone] Ga dical nal 044 [facility] 2020-10-14 2020-10-14 Telemedici [facility] 1.2.840.114 [id number] Univers 11:21:55 11:27:44 ne Visit Pearl Venegas [id number] ity [facility] [id number] [phone] Ga dical nal [address] [place] [address] 2020-10-14 2020-10-14 Outpatient [facility] [id number] Univers 09:20:00 09:20:00 PEARL [id number] [facility] 2020-10-14 2020-10-14 Outpatient R [facility]CON[facility] [id number] Univers 09:20:00 09:20:00 PEARL [facility] 2020-10-13 2020-10-13 Refill [facility] 1.2.840.114 [id number] Univers 00:00:00 00:00:00 Pearl Venegas [id number] i [id number] [phone] Ga dical nal [address] [place] [address] 2020-10-08 2020-10-08 Outpatient MARISAADERI, SLE SLE [id number] SLEH 00:00:00 00:00:[address] [facility] 2020-10-08 2020-10-08 Outpatient EL MARISAADERI, SLE SLE [id number] SLEH 00:00:00 00:00:[address] [facility] 2020-10-08 2020-10-08 Outpatient SLEH SLEH [id number] SLEH 00:00:00 00:00:00 2020-10-08 2020-10-08 Outpatient PING CUNNINGHAMADERI, SLEH SLEH [id number] SLEH 00:00:00 00:00:[address] [facility] 2020-10-08 2020-10-08 Outpatient MARISAADERI, SLE SLE [id number] SLEH 00:00:00 00:00:[address] [facility] 2020-10-08 2020-10-08 [facility] [id number] SLEH 00:00:00 00:00:[address] [facility] 2020-09-01 2020-09-01 [facility] [id number] SLEH 00:00:00 00:00:00 2020-09-01 2020-09-01 Outpatient JOSE FRANCISCO WHITEHEAD SLE SLE [id number] SLEH 00:00:00 00:00:00 2020-08-19 2020-08-19 Emergency [facility] 1.2.840.114 [id number] 07:35:00 10:07:00 Wendy Venegas [id number] [place] [id number] [place] [id number] [id number] 2020-08-19 2020-08-19 Emergency [facility] 1.2.840.114 [id number] [facility] 07:35:00 10:07:00 Wendy Venegas [id number] ity of [place] [id number] [facility] [phone] [facility] 084 Branch 2020-08-19 2020-08-19 Orders Doctor MONAE 1.2.840.114 [id number] 00:00:00 00:00:00 Only Unassigned, TOY 350.1.13.10 [place] [facility] [id number] [phone] [id number] 2020-08-19 2020-08-19 Orders Doctor MONAE 1.2.840.114 [id number] Univers 00:00:00 00:00:00 Only Unassigned, TOY 350.1.13.10 ity of [place] [facility] [id number] [facility] [phone] [facility] 009 Branch 2020-08-03 2020-08-03 [facility] 1.2.840.114 [id number] 00:00:00 00:00:00 Pearl Venegas [id number] [place] [id number] [facility] [phone] [address] 2020-08-03 2020-08-03 Refill Kimberley [facility] 1.2.840.114 [id number] Univers 00:00:00 00:00:00 Pearl Venegas 350.1.13.10 [id number] [place] [facility] [phone] Ga dical [address] 2020-07-19 2020-07-19 Outpatient EL SLEH SLEH [id number] SLEH 00:00:00 00:00:00 2020-07-18 2020-07-18 Outpatient EL SLEH SLEH [id number] SLEH 00:00:00 00:00:00 2020-06-28 2020-06-28 Outpatient SLEH SLEH [id number] SLEH 00:00:00 00:00:00 2020-06-25 2020-06-25 Emergency [facility] [id number] 17:04:00 23:09:00 [place] Venegas [id number] [place] [id number] [place] [id number] [facility] 2020-06-25 2020-06-25 Emergency [facility] [id number] [facility] 17:04:00 23:09:00 Carolina Venegas [id number] ity of [place] [id number] [facility] [place] [phone] [facility] 084 [place] 2020-06-25 2020-06-25 Orders Doctor LICONA 1.2.840.114 [id number] 00:00:00 00:00:00 Only Unassigned, TOY 350.1.13.10 [place] [facility] 4.2.7.2.686 [id number] 2020-06-25 2020-06-25 Orders Doctor LICONA 1.2.840.114 [id number] Univers 00:00:00 00:00:00 Only Unassigned, TOY 350.1.13.10 ity of [place] [facility] 4.2.7.2.686 [place] [id number] [facility] 009 [place] 2020-06-22 2020-06-22 Refill [facility] 1.2.840.114 [id number] 00:00:00 00:00:00 Pearl Venegas 350.1.13.10 [place] [id number] Professio [phone] nal 044 [facility] 2020-06-22 2020-06-22 Tamiko Shabazz, [facility] 1.2.840.114 [id number] Univers 00:00:00 00:00:00 Pearl Venegas 350.1.13.10 [place] [phone] [place]ical nal 044 [facility] 2020-03-13 2020-03-13 Outpatient EL SLEH SLEH [id number] [facility]H 00:00:00 00:00:00 2020-03-13 2020-03-13 Outpatient SLEH SLEH [id number] SLEH 00:00:00 00:00:00 2020-03-13 2020-03-13 Outpatient JESSICA, SLEH SLEH [id number] SLEH 00:00:00 00:00:00 [facility] 2020-03-13 2020-03-13 Outpatient EL KHADERI, SLEH SLEH [id number] SLEH 00:00:00 00:00:[address] [facility] 2020-02-18 2020-02-18 Outpatient SLEH SLEH [id number] SLEH 00:00:00 00:00:00 2020-02-18 2020-02-18 Outpatient EL SLEH SLEH [id number] SLEH 00:00:00 00:00:00 2020-02-18 2020-02-18 Outpatient SLEH SLEH [id number] SLEH 00:00:00 00:00:00 2020-02-05 2020-02-05 Outpatient SLEH SLEH [id number] SLEH 00:00:00 00:00:00 2020-02-05 2020-02-05 Outpatient KHADERI, SLEH SLEH [id number] SLEH 00:00:00 00:00:[address] [facility] 2020-02-05 2020-02-05 Outpatient SLEH SLEH [id number] SLEH 00:00:00 00:00:00 2020-01-28 2020-01-28 Outpatient EL SLEH SLEH [id number] SLEH 00:00:00 00:00:00 2020-01-14 2020-01-14 Outpatient EL SLE SLE [id number] SLEH 00:00:00 00:00:00 2019-09-11 2019-09-11 Telephone [facility] 1.2.840.114 [id number] 00:00:00 00:00:00 Pearl Venegas 350.1.13.10 [place] 4.2.7.2.686 Professio [phone] [address] 2019-09-11 2019-09-11 Telephone [facility] 1.2.840.114 [id number] [facility] 00:00:00 00:00:00 Pearl Venegas 350.1.13.10 i ty [facility] [place] [phone] Ga dical [address] 2019-08-20 2019-08-20 [facility] [id number] SLE 00:00:00 00:00:00 [id number] 2019-02-08 2019-02-08 Orders Doctor MONAE 1.2.840.114 [id number] 00:00:00 00:00:00 Only Unassigned, TOY 350.1.13.10 [place] [facility] 4.2.7.2.686 [phone] 009 2019-02-08 2019-02-08 Orders Doctor MONAE 1.2.840.114 [id number] [facility] 00:00:00 00:00:00 Only Unassigned, TOY 350.1.13.10 ity of [place] [facility] 4.2.7.2.686 Bryce as [phone] [address] 2019-01-31 2019-01-31 Orders Doctor MONAE 1.2.840.114 [id number] 00:00:00 00:00:00 Only Unassigned, TOY 350.1.13.10 [place] [facility] 4.2.7.2.686 [phone] 009 2019-01-31 2019-01-31 Orders Doctor MONAE 1.2.840.114 [id number] [facility] 00:00:00 00:00:00 Only Unassigned, TOY 350.1.13.10 ity of [place] [facility] 4.2.7.2.686 Bryce as [phone] [address] 2019-01-23 2019-01-23 Telephone Brenda Rod [facility] 1.2.840.114 [id number] 00:00:00 00:00:00 [place] 350.1.13.10 [place] 4.2.7.2.686 Professio [phone] [address] 2019-01-23 2019-01-23 Brenda Amado [facility] 1.2.840.114 [id number] Univers 00:00:00 00:00:00 [place] 350.1.13.10 [place] [phone] [address] 2019-01-21 2019-01-21 Office Brenda Rod [facility] 1.2.840.114 [id number] 15:52:08 16:26:09 Visit [place] 350.1.13.10 [place] 4.2.7.2.686 Professio [phone] [address] 2019-01-21 2019-01-21 Office Brenda Rod [facility] 1.2.840.114 [id number] [facility] 15:52:08 16:26:09 Visit [place] 350.1.13.10 [place] [phone] [address] 2019-01-17 2019-01-17 Orders Doctor LICONA 1.2.840.114 [id number] 00:00:00 00:00:00 Only Unassigned, TOY 350.1.13.10 [place] [facility] 4.2.7.2.686 [phone] [facility] 2019-01-17 2019-01-17 Orders Doctor LICONA 1.2.840.114 [id number] Univers 00:00:00 00:00:00 Only Unassigned, TOY 350.1.13.10 ity of [place] [facility] 4.2.7.2.686 Bryce as [phone] [address] 2019-01-07 2019-01-07 Telephone Brenda Rod [facility] 1.2.840.114 [id number] Univers 00:00:00 00:00:00 [place] 350.1.13.10 [place] [phone] [address] 2019-01-07 2019-01-07 Orders Doctor MONAE 1.2.840.114 [id number] Univers 00:00:00 00:00:00 Only Unassigned, TOY 350.1.13.10 ity of [place] [facility] 4.2.7.2.686 Bryce as [phone] [address] 2019-01-02 2019-01-02 Orders Doctor MONAE 1.2.840.114 [id number] 00:00:00 00:00:00 Only Unassigned, TOY 350.1.13.10 [place] [facility] 4.2.7.2.686 [phone] 2019-01-02 2019-01-02 Orders Doctor MONAE 1.2.840.114 [id number] Univers 00:00:00 00:00:00 Only Unassigned, TOY 350.1.13.10 ity of [place] [facility] 4.2.7.2.686 Bryce as [phone] [address] 2019-01-02 2019-01-02 Brenda Abel [facility] 1.2.840.114 [id number] Univers 00:00:00 00:00:00 [place] 350.1.13.10 [place] [phone] [address] 2018-12-28 2018-12-28 Orders Doctor MONAE 1.2.840.114 [id number] 00:00:00 00:00:00 Only Unassigned, TOY 350.1.13.10 [place] [facility] 4.2.7.2.686 [phone] 2018-12-28 2018-12-28 Orders Doctor MONAE 1.2.840.114 [id number] Univers 00:00:00 00:00:00 Only Unassigned, TOY 350.1.13.10 ity of [place] [facility] 4.2.7.2.686 Bryce as [phone] [address] 2018-12-21 2018-12-21 Telephone Brenda Rod [facility] 1.2.840.114 [id number] Univers 00:00:00 00:00:00 C [place] 350.1.13.10 [place] [phone] Ga dical [address] 2018-12-17 2018-12-17 Orders Doctor MONAE 1.2.840.114 [id number] Univers 00:00:00 00:00:00 Only Unassigned, TOY 350.1.13.10 ity of [place] [facility] 4.2.7.2.686 Bryce as [phone] [address] 2016-10-19 2016-10-19 Orders Doctor MONAE 1.2.840.114 [id number] 00:00:00 00:00:00 Only Unassigned, TOY 350.1.13.10 [place] [facility] 4.2.7.2.686 [phone] [facility] 2016-10-19 2016-10-19 Orders Doctor MONAE 1.2.840.114 [id number] Univers 00:00:00 00:00:00 Only Unassigned, TOY 350.1.13.10 ity of [place] [facility] 4.2.7.2.686 Bryce as [phone] [address] 2016-10-13 2016-10-13 Orders Doctor MONAE 1.2.840.114 [id number] Univers 00:00:00 00:00:00 Only Unassigned, TOY 350.1.13.10 [facility]y of [place] [facility] 4.2.7.2.686 Bryce as [phone] [address] Results Test Description Test Time Test Comments Results Result [facility] e Comments MR, ABDOMEN, WITH 2021-05-03 REFERRING MD: 14:52:00 ANIL SALVADOR Include [facility] - MEDICAL Vessels CENTERName: KALEN GRIGGS [...] MDReport Verified Date/Time: 05/03/2021 14:52:21 Reading Location: [address] Transitional Reading Room , CHEST, 2021-04-29 REFERRING MD: WITHOUT CONTRAST 16:45:00 ANIL SALVADOR Mets work up [facility] : 1955 Sex: M [...] lobe groundglass nodule. Signed: Brenda [facility] Verified Date/Time: 04/29/2021 16:45:28 Reading Location: [place] [id number] CT Body Reading Room AND/OR JOINT 2021-04-29 REFERRING MD: IMAGING, WHOLE 14:33:00 ANIL SALVADOR BODY METS [facility] 1955 Sex: M FINAL REPORT PROCEDURE: BONE SCAN, WHOLE BODY CPT CODE: 70363 INDICATION: HCC PROTOCOL: 21.8 mCi of Tc-99m [...] there is no significant change. Signed: Tami Owenepdaron Verified Date/Time: 04/29/2021 14:33:51 Reading Location: [address] [place] [address] Reading Room C METABOLIC PANEL 2021-04-29 12:07:01 [...] NOT 1092) ACCURATE CRE ATININE CLEARANCE IN ID EDICTING GLOMERULAR FILT RATION RATE. ESTIMATED GFR IS NOT APPLICABLE FOR DIALYSIS PATIENTS. Forensic Sergeant ID - ELOY MSpecimen slightly ictericHEPATIC FUNCTION [id number] 12:07:01 Test Item Value Reference Range Interpretation [...] (test code = 23 U/L 6-55 347) Forensic Sergeant ID - ELOY MSpecimen slightly ictericALPHA FETOPROTEIN (AFP), TUMOR [id number] 11:59:44 Test Item Value Reference Range Interpretation Comments ALPHA-FETOPROTEIN (BEAKER) (test 2.5 ng/mL <10.0 code = 1094) Forensic Sergeant ID Andrea LYONS MPROTHROMBIN TIME/[id number] 11:32:54 Test Item Value Reference Range Interpretation Comments PROTIME (BEAKER) 15.7 seconds 11.9-14.2 H (test code = 759) INR (BEAKER) (test 1.27 See_Comment [Automat ed message] code = 370) The system [employer] generated this result transmitted ref erence range: [...] PERCENT (BEAKER) (test code = 2801) TROPONIN [id number] 19:45:34 Test Item Value Reference Interpretation Comments Range TROPONIN I (test 0.004 ng/mL See_Comment [Automated code = 6859902536) message] The system which generated this result [...] biotin. Lab Interpretation Normal (test code = 86335-2) [facility] WITH [id number] 19:42:16 Test Item Value Reference Range Interpretation Comments WBC (test code = See_Comment [Automated 5390-2) message] The sy stem which generated this [...] (test code = 55.0 fL 38.5-51.6 H 40745-9) RDW-CV (test code = 21.7 % 12.1-15.4 H 788-0) PLT (test code = See_Comment L [Automated 777-3) message] The sy stem which generated this result transmitted reference range : 150 - 328 10*3/ ?L. The reference r mela was not used to interpret this result as normal/abnormal . MPV (test code = Not Measure d 87825-1) IPF % (test code = 3.2 % 1.2-10.7 Platelet count 5110985613) measured by fluorescence method. NRBC/100 WBC (test See_Comment [Automat ed code = 3973669680) message] The system which generated this result transmitted reference range : 0.0 - 10.0 /100 WBCs. The refer ence range was not u sed to interpret th is result as normal/abnormal . NRBC x10^3 (test code <0.01 See_Comment [Auto mated = 6496948786) message] The s ystem which generated this result transmitted reference range : 10*3/?L. The reference range was not used to interpret this result as normal/abnormal . GRAN MAT (NEUT) % 42.9 % (test code = 770-8) IMM GRAN % (test code 0.60 % = 8116569191) LYMPH % (test code = 38.0 % 736-9) MONO % (test code = 14.2 % 5905-5) EOS % (test code = 3.3 % 713-8) BASO % (test code = 1.0 % 706-2) GRAN MAT x10^3(ANC) 2.24 10*3/uL 1.99-6.95 (test code = 7451090721) IMM GRAN x10^3 (test 0.03 10*3/uL 0.00-0.06 code = 0453112093) LYMPH x10^3 (test code 1.98 10*3/uL 1.09-3.23 = 731-0) MONO x10^3 (test code 0.74 10*3/uL 0.36-1.02 = 742-7) EOS x10^3 (test code = 0.17 10*3/uL 0.06-0.53 711-2) BASO x10^3 (test code 0.05 10*3/uL 0.01-0.09 = 704-7) Lab Interpretation Abnormal (test code = 68709-5) [facility]. METABOLIC PANEL (93978)2021-04-01 19:34:12 Test Item Value Reference Range Interpretation Comments NA (test code = 135 mmol/L 135-145 8861949010) K (test code = 3.8 mmol/L 3.5-5.0 3850107154) CL (test code = 104 mmol/L 98-108 6389112405) CO2 TOTAL (test code = 23 mmol/L 23-31 7877212890) AGAP (test code = 2-16 1252928316) BUN (test code = 9 mg/dL 7-23 1604840352) GLUCOSE (test code = 195 mg/dL 70-110 H 3416525755) CREATININE (test code = 0.65 mg/dL 0.60-1.25 0168885217) TOTAL BILI (test code = 1.3 mg/dL 0.1-1.1 H 7531367144) CALCIUM (test code = 8.2 mg/dL 8.6-10.6 L 0837376984) T PROTEIN (test code = 6.6 g/dL 6.3-8.2 8846631485) ALBUMIN (test code = 2.9 g/dL 3.5-5.0 L 4182036441) ALK PHOS (test code = 143 U/L 34-122 H 6325991968) ALTv (test code = 28 U/L 5-50 1742-6) AST(SGOT) (test code = 47 U/L 13-40 H 0627796432) eGFR (test code = mL/min/1.73m2 3680154003) MADALYN (test code = MADALYN) Association of [...] tests). Lab Interpretation Abnormal (test code = 79638-3) [facility] [id number] 19:32:52 Test Item Value Reference Range Interpretation Comments AMMONIA (test code = 5056023368) 48 umol/L 9-33 H Lab Interpretation (test code = Abnormal 47694-8) [facility] / [id number] 19:01:25 Test Item Value Reference Range Interpretation Comments PROTIME PATIENT (test See_Comment H [Auto mated message] code = 5964-2) The system [employer] generated this result transmitted ref erence range: 12.0 - 1 4.7 Seconds. The reference range was not used to int erpret this result as normal/abnormal . INR (test code = 6301-6) Nor mal INR <1.1; Warfarin Therap eutic range 2.0 to 3. 0 or 2.5 to 3.5, dep ending upon the indica tions. Lab Interpretation (test Abnormal code = 00689-4) [facility], EMBOLIZATION, EXTENSIVE - ARTERIAL 2021-03-12 14:48:00REFERRING : ANIL SALVADOR For TACEReason for Exam:- >[facility] : 1955 Sex: [...] blood loss: < 5 cc. Specimen: None. print color operator: Carolyn. Patient Service Representative: Dilip. Fluoroscopy Time: 14.1 min. Dose (Ka,r): [...] accessed using a micropuncture set. A 5 Nigerien sheath was gema inga. Diagnostic mesenteric angiogram was performed to access vessel patency and exclude arterio-portal shunting. A 5 Nigerien Anaya catheter which was used to select the celiac trunk for a DSA run. A 3 [place]ien microcatheter was advanced coaxially through the Anaya [...] Successful hemostasis using closure device. Signed: Anthony [facility]imes[facility] Verified Date/Time: 03/12/2021 14:48:55 Reading Locat ion: [facility] B1 P048 Angio Body Reading Room HEPATIC FUNCTION [id number] 07:40:34 Test Item Value Reference Range Interpretation [...] (test code = 19 U/L 6-55 347) Forensic Sergeant ID - Ana slightly ictericBASIC METABOLIC [id number] 07:40:33 Test Item Value Reference Range Interpretation [...] S NOT APPLICABLE FOR DIALYSIS PATIEN TS. Forensic Sergeant ID - Ana slightly ictericPROTHROMBIN TIME/[id number] 07:22:36 Test Item Value Reference Range Interpretation Comments PROTIME (BEAKER) 16.9 seconds 11.9-14.2 H (test code = 759) INR (BEAKER) (test 1.40 See_Comment [Automat ed message] code = 370) The system [employer] generated this result transmitted ref erence range: [...] (BEAKER) (test code = 2801) BASIC METABOLIC [id number] 10:56:30 Test Item Value Reference Range Interpretation [...] S NOT APPLICABLE FOR DIALYSIS PATIEN TS. Forensic Sergeant ID Andrea REDMONDpecimen slightly ictericHEPATIC FUNCTION PANEL [...] (test code = 28 U/L 6-55 347) Forensic Sergeant ID Andrea ENGLISH FSpecimen slightly [id number] 10:28:14 Test Item Value Reference Range Interpretation Comments PARTIAL THROMBOPLASTIN TIME 34.9 seconds 22.5-36.0 (BEAKER) (test code = 760) PROTHROMBIN TIME/[id number] 10:27:34 Test Item Value Reference Range Interpretation Comments PROTIME (BEAKER) 17.4 seconds 11.9-14.2 H (test code = 759) INR (BEAKER) (test 1.45 See_Comment [Automat ed message] code = 370) The system [employer] generated this result transmitted ref erence range: [...] (BEAKER) (test code = 2801) MR, ABDOMEN, [id number] 12:00:00REFERRING MD: ANIL SALVADOR Include [facility] : 1955 Sex: MFINAL [...] V (series 3, image 22) is likely account representative of a cyst, unchanged.*An 11 mm [...] Patent main portal vein. Signed: Stefano Mckeon Verified Date/Time: 01/25/2021 12:00:12 Reading Location: [address] Reading Room HEPATITIS C PCR, [id number] 16:10:00 Test Item Value Reference Range Interpretation Comments HCV RESULT COMPONENT HCV RNA not detected HCV RNA not detected ([place]) (test code = 2699) This test uses a Real-Time Polymerase Chain Reaction (RT-PCR) methodology and was performed using KHOA Ampliprep/KHOA TaqMan HCV test kit version 2.0 ([employer]).Reportable range for this assay is 15 - 100,000,000 IU per mL (1.18 - 8.00 Log IU/mL).CT, CHEST, WITHOUT CONTRAST 2021-01-22 15:56:00REFERRING MD: ANIL SALVADOR Mets work up [facility] : 1955 Sex: [...] [place] Verified Date/Time: 01/22/2021 15:56:37 Reading Location: [facility] Diagnostic Imaging Reading Room - [place] [address] ALPHA FETOPROTEIN (AFP), TUMOR [id number] 11:33:00 Test Item Value Reference Range Interpretation Comments ALPHA-FETOPROTEIN (BEAKER) (test 2.1 ng/mL <10.0 code = 1094) Forensic Sergeant ID - ELOY MBASIC METABOLIC [id number] 11:23:00 Test Item Value Reference Range Interpretation [...] S NOT APPLICABLE FOR DIALYSIS PATIEN TS. Forensic Sergeant ID - ELOY MHEPATIC FUNCTION [id number] 11:23:00 Test Item Value Reference Range Interpretation [...] (test code = 23 U/L 6-55 347) Forensic Sergeant ID - ELOY MCBC W/PLT COUNT & AUTO [id number] 10:58:00 Test Item Value Reference Range Interpretation [...] PERCENT (BEAKER) (test code = 2801) PROTHROMBIN TIME/[id number] 10:46:00 Test Item Value Reference Range Interpretation Comments PROTIME (BEAKER) 16.4 seconds 11.9-14.2 H (test code = 759) INR (BEAKER) (test 1.35 See_Comment [Automat ed message] code = 370) The system [employer] generated this result transmitted ref erence range: <=5.90. The reference range was not used to int erpret this result as normal/abnormal . RECOMMENDED COUMADIN/WARFARIN INR THERAPY RANGESSTANDARD DOSE: 2.0 - 3.0 Includes: PROPHYLAXIS forvenous thrombosis, systemic embolization; TREATMENT for venous thrombosis and/or pulmonary embolus.HIGH RISK: Target INR is 2.5-3.5 for patients with mechanical heart valves.ANG, EMBOLIZATION, EXTENSIVE - ARTERIAL 2020-11-27 08:41:00REFERRING : ANIL SALVADOR For TACEReason for Exam:- >HCC[facility] : 1955 Sex: MFINAL [...] blood loss: < 5 cc. Specimen: None. print color operator: Xiang Colindres MD.. Patient Service Representative: None. Fluoroscopy Time: 14.2 min.Reference Air Kerma (Ka, r): 1613 mGy. The skin was anesthetized with lidocaine. The right common femoral artery was accessed using a 21-gaugeneedle and a 0.018 inch microwire. A 4 Nigerien catheter was placed over the wire and a 0.035 inch wire was placed through the catheter into the abdominal aorta. A 5 Nigerien sheath was placed over the wire. A 5 Nigerien SOS-II catheter was used to select the [...] ColindresMDReport Verified Date/Time: 11/27/2020 08:41:43 BASIC METABOLIC [id number] 08:59:00 Test Item Value Reference Range Interpretation [...] S NOT APPLICABLE FOR DIALYSIS PATIEN TS. Forensic Sergeant ID - PIAYA LSpecimen slightly ictericHEPATIC FUNCTION [id number] 08:59:00 Test Item Value Reference Range Interpretation [...] (test code = 24 U/L 6-55 347) Forensic Sergeant ID - KRISHNA LSpecimen slightly ictericPROTHROMBIN TIME/[id number] 08:49:00 Test Item Value Reference Range Interpretation Comments PROTIME (BEAKER) 16.7 seconds 11.9-14.2 H (test code = 759) INR (BEAKER) (test 1.37 See_Comment [Automat ed message] code = 370) The system [employer] generated this result transmitted ref erence range: [...] 0-1 PERCENT (BEAKER) (test code = 2801) [id number] 08:49:00 Test Item Value Reference Range Interpretation Comments PARTIAL THROMBOPLASTIN TIME 34.6 seconds 22.5-36.0 (BEAKER) (test code = 760) HEPATITIS C PCR, [id number] 19:54:00 Test Item Value Reference Range Interpretation Comments HCV RESULT COMPONENT HCV RNA not detected HCV RNA not detected (BEAKER) (test code = 2699) This test uses a Real-Time Polymerase Chain Reaction (RT-PCR) methodology and was performed using KHOA Ampliprep/KHOA TaqMan HCV test kit version 2.0 ([employer]).Reportable range for this assay is 15 - 100,000,000 IU per mL (1.18 - 8.00 Log IU/mL).BASIC METABOLIC [id number] 12:10:00 Test Item Value Reference Range Interpretation [...] S NOT APPLICABLE FOR DIALYSIS PATIEN TS. Forensic Sergeant ID - FSEHEPATIC FUNCTION [id number] 12:10:00 Test Item Value Reference Range Interpretation [...] (test code = 26 U/L 6-55 347) Forensic Sergeant ID - FSECBC W/PLT COUNT & AUTO [id number] 12:01:00 Test Item Value Reference Range Interpretation [...] PERCENT (BEAKER) (test code = 2801) PROTHROMBIN TIME/[id number] 11:53:00 Test Item Value Reference Range Interpretation Comments PROTIME (BEAKER) 16.3 seconds 11.9-14.2 H (test code = 759) INR (BEAKER) (test 1.35 See_Comment [Automat ed message] code = 370) The system [employer] generated this result transmitted ref erence range: [...] WHOLE BODY 2020-10-08 17:40:00REFERRING MD: ANIL SALVADOR [facility] : 1955 Sex: MFINAL REPORT PROCEDURE: BONE SCAN, WHOLE BODY CPT CODE: 79225 INDICATION: Hepatocellular carcinoma PROTOCOL: 21.0 mCi of [...] MDReport Verified Date/Time: 10/08/2020 17:40:47 Reading Location: [address] Reading [address] CT, CHEST, WITHOUT [id number] 12:54:00REFERRING MD: ANIL SALVADOR [facility] : 1955 [...] MDReport Verified Date/Time: 10/08/2020 12:54:21 Reading Location: [facility] B1 C013Y CT Body Reading Room ALPHA FETOPROTEIN (AFP), TUMOR MARKER 2020-10-08 12:52:00 Test Item Value Reference Range Interpretation Comments ALPHA-FETOPROTEIN (BEAKER) (test 2.5 ng/mL <10.0 code = 1094) Forensic Sergeant ID - DEBORAH CBASIC METABOLIC [id number] 11:26:00 Test Item Value Reference Range Interpretation [...] S NOT APPLICABLE FOR DIALYSIS PATIEN TS. Forensic Sergeant ID - PIAYA LHEPATIC FUNCTION [id number] 11:26:00 Test Item Value Reference Range Interpretation [...] (test code = 29 U/L 6-55 347) Forensic Sergeant ID - KRISHNA LCBC W/PLT COUNT & AUTO [id number] 11:14:00 Test Item Value Reference Range Interpretation [...] PERCENT (BEAKER) (test code = 2801) PROTHROMBIN TIME/[id number] 11:12:00 Test Item Value Reference Range Interpretation Comments PROTIME (BEAKER) 16.7 seconds 11.9-14.2 H (test code = 759) INR (BEAKER) (test 1.39 See_Comment [Automat ed message] code = 370) The system [employer] generated this result transmitted ref erence range: <=5.90. The reference range was not used to int erpret this result as normal/abnormal . Effective 10/24/2018: PT Reference Range ChangeNew: 11.9-14.2 Previous: 11.7- 14.7RECOMMENDED COUMADIN/WARFARIN INR THERAPY RANGESSTANDARD DOSE: 2.0-3.0 Includes: PROPHYLAXIS for venous thrombosis, systemic embolization; TREATMENT for venous thrombosis and/or pulmonary embolus.HIGH RISK: Target INR is2.5-3.5 for patients wiht mechanical heart valves.MR, ABDOMEN, [id number] 16:24:00 REFERRING MD: ANIL SALVADOR Include Abdominal VesselsUnlisted Reason for Exam - Click Yes and EnterReason Below->YesUnlisted Reason for Exam->awaiting organ transplant, cirrhosis, screening forcancer [facility] : 1955 [...] (test code < ng/mL <10.0 = 1094) Forensic Sergeant ID - BSBASIC METABOLIC [id number] 14:50:00 Test Item Value Reference Range Interpretation [...] S NOT APPLICABLE FOR DIALYSIS PATIEN TS. Forensic Sergeant ID - EDASISpecimen slightly ictericHEPATIC FUNCTION [id number] 14:50:00 Test Item Value Reference Range Interpretation [...] (test code = 26 U/L 6-55 347) Forensic Sergeant ID - EDASISpecimen slightly ictericCBC W/PLT COUNT & AUTO [id number] 14:45:00 Test Item Value Reference Range Interpretation [...] PERCENT (BEAKER) (test code = 2801) PROTHROMBIN [id number] 14:40:00 Test Item Value Reference Range Interpretation Comments PROTIME (BEAKER) 17.6 seconds 11.9-14.2 H (test code = 759) INR (BEAKER) (test 1.49 See_Comment [Automat ed message] code = 370) The system [employer] generated this result transmitted ref erence range: <=5.90. The reference range was not used to int erpret this result as normal/abnormal . Effective 10/24/2018: PT Reference Range ChangeNew: 11.9-14.2 Previous: 11.7- 14.7RECOMMENDED COUMADIN/WARFARIN INR THERAPY RANGESSTANDARD DOSE: 2.0-3.0 Includes: PROPHYLAXIS for venous thrombosis, systemic embolization; TREATMENT for venous thrombosis and/or pulmonary embolus.HIGH RISK: Target INR is2.5-3.5 for patients wiht mechanical heart valves.Chest 1 [id number] 14:03:55 Small right pleural effusion with right basilar pneumonia and/oratelectasis. RL: 7000 Patient name: KALEN RICHShruthi: 1955 64 years EXAMINATION: [...] - 08/19/2020 9:04 AM CDTPatient name: KALEN MONTENEGRO: 1955 64 years EXAMINATION: XR CHEST 1 [...] Electronically signed by Daquan Gibson at 19:03 [facility] HospitalTrop[facility] 2020-08-19 13:32:55 Test Item Value Reference Range Interpretation Comments TROPONIN I (test <0.012 See_Comment [Automated code = 4559649482) message] The system which generated this result [...] ? Lab Interpretation Normal (test code = 65958-5) [facility] [id number] 13:29:55 Test Item Value Reference Range Interpretation Comments NT-proBNP (test code 119 pg/mL See_Comment [Autom ated = 7233085159) message] The system which generated this result transmitted reference range : <=125. The reference range was not used to interpret this result as normal/abnormal . MADALYN (test code = MADALYN) Biotin has been reported to cause a negative bias, interpret results relative to patient's use of biotin. Lab Interpretation Normal (test code = 48509-1) [facility] (ID NOW RAPID TESTING)2020-08-19 13:23:14 Test Item Value Reference Range Interpretation Comments SARS-CoV-2 Rapid ID NOW Not Detected Not Detected (test code = 49844-5) MADALYN (test code = MADALYN) ID NOW COVID-19 Assay is an isothermal nucleic acid amplification test intended for the qualitative detection of nucleic acid from SARS-CoV-2 viral RNA in nasopharyngeal (CUT OUT PRESS OPERATOR) specimens. It is used under Emergency [...] indicated. Lab Interpretation Normal (test code = 79638-6) [facility] Metabolic Panel (NA, K, CL, CO2, GLUCOSE, BUN, CREATININE, CA)2020-08-19 13:21:13 Test Item Value Reference Range Interpretation Comments NA (test code = 135 mmol/L 135-145 4559184564) K (test code = 4.1 mmol/L 3.5-5.0 1330269480) CL (test code = 106 mmol/L 98-108 3428528746) CO2 TOTAL (test code = 24 mmol/L 23-31 3824198675) AGAP (test code = 2-16 6153278083) BUN (test code = 7 mg/dL 7-23 5570864419) GLUCOSE (test code = 216 mg/dL 70-110 H 8697694017) CREATININE (test code = 0.59 mg/dL 0.60-1.25 L 8593548098) CALCIUM (test code = 8.2 mg/dL 8.6-10.6 L 9676607465) eGFR Calculation mL/min/1.73m2 (Non-) (test code = 7180336674) eGFR Calculation mL/min/1.73m2 () (test code = 9466767210) MADALYN (test code = MADALYN) Association of [...] tests). Lab Interpretation Abnormal (test code = 27955-7) [facility] (ALB, T.PRO, BILI T, BU/BC, ALT, AST, ALK PHOS)2020-08-19 13:21:12 Test Item Value Reference Range Interpretation Comments TOTAL BILI (test code = 0819261710) 1.9 mg/dL 0.1-1.1 H BILI UNCON (test code = 9692620057) 1.7 mg/dL 0.1-1.1 H BILI CONJ (test code = 2176139001) 0.0 mg/dL 0.0-0.3 T PROTEIN (test code = 5859026697) 6.3 g/dL 6.3-8.2 ALBUMIN (test code = 0979103238) 3.0 g/dL 3.5-5.0 L ALK PHOS (test code = 4510550688) 162 U/L 34-122 H ALTv (test code = 1742-6) 25 U/L 5-50 AST(SGOT) (test code = 5112092004) 41 U/L 13-40 H Lab Interpretation (test code = Abnormal 79060-1) [facility] HospitalLipase [id number] 13:21:12 Test Item Value Reference Range Interpretation Comments LIPASE (test code = 3850397197) 145 U/L 0-220 Lab Interpretation (test code = Normal 15484-4) [facility] HospitalCBC with [id number] 13:17:56 Test Item Value Reference Range Interpretation [...] RDW-SD (test code = 48.3 fL 38.5-51.6 04811-8) RDW-CV (test code = 21.4 % 12.1-15.4 H 788-0) PLT (test code = See_Comment L [Automated 777-3) message] The sy stem which generated this result transmitted reference range : 150 - 328 10*3/ ?L. The reference r mela was not used to interpret this result as normal/abnormal . MPV (test code = Not Measure d 37709-1) IPF % (test code = 2.3 % 1.2-10.7 Platelet count 4252819182) measured by fluorescence method. NRBC/100 WBC (test See_Comment [Automat ed code = 1441350267) message] The system which generated this result transmitted reference range : 0.0 - 10.0 /100 WBCs. The refer ence range was not u sed to interpret th is result as normal/abnormal . NRBC x10^3 (test code <0.01 See_Comment [Auto mated = 1519215044) message] The s ystem which generated this result transmitted reference range : 10*3/?L. The reference range was not used to interpret this result as normal/abnormal . GRAN MAT (NEUT) % 56.4 % (test code = 770-8) IMM GRAN % (test code 0.20 % = 4481398485) LYMPH % (test code = 27.6 % 736-9) MONO % (test code = 10.7 % 5905-5) EOS % (test code = 3.7 % 713-8) BASO % (test code = 1.4 % 706-2) GRAN MAT x10^3(ANC) 2.47 10*3/uL 1.99-6.95 (test code = 5181465209) IMM GRAN x10^3 (test <0.03 0.00-0.06 code = 2521451188) LYMPH x10^3 (test code 1.21 10*3/uL 1.09-3.23 = 731-0) MONO x10^3 (test code 0.47 10*3/uL 0.36-1.02 = 742-7) EOS x10^3 (test code = 0.16 10*3/uL 0.06-0.53 711-2) BASO x10^3 (test code 0.06 10*3/uL 0.01-0.09 = 704-7) Lab Interpretation Abnormal (test code = 35279-0) [facility] HospitalPROTHROMBIN TIME / [id number] 01:49:00 Test Item Value Reference Range Interpretation [...] tions. Lab Interpretation (test Abnormal code = 56556-3) [facility] HospitalMAGNESIUM2021-01-29 01:27:00 Test Item Value Reference Range Interpretation Comments MAGNESIUM (test code = 5715245764) 1.6 mg/dL 1.7-2.4 L Lab Interpretation (test code = Abnormal 72065-0) [facility] HospitalAMMONIA, [id number] 01:26:00 Test Item Value Reference Range Interpretation Comments AMMONIA (test code = 5809626111) 37 umol/L 9-33 H Lab Interpretation (test code = Abnormal 25359-8) [facility] HospitalUrinalysis2021-01-29 00:30:00 Test Item Value Reference Range Interpretation Comments APPEARANCE (test code = Clear Clear 5437031819) COLOR (test code = Addison Yellow A 4400338982) PH (test code = 4.8-8.0 4196628427) SP GRAVITY (test code = 1.003-1.030 4163199403) GLU U QUAL (test code = Normal Normal 0659469863) BLOOD (test code = Negative Negative INTERFERE NCE FROM 5894700676) ASCORBIC ACID M AY CAUSE FALSE NEG ATIVE RESULT KETONES (test code = Negative Negative 8785197812) PROTEIN (test code = Negative Negative 2887-8) UROBILIN (test code = 4.0 mg/dL Normal A 1035587348) BILIRUBIN (test code = Negative Negative 8958508748) NITRITE (test code = Negative Negative 3089035467) LEUK KIKI (test code = Negative Negative 5229628871) RBC/HPF (test code = See_Comment [Autom ated message] 8849523594) The system [employer] generated this result transmitted ref erence range: 0 - 3 HP F. The reference range was not used to int erpret this result as normal/abnormal . WBC/HPF (test code = See_Comment [Autom ated message] 5127352746) The system [employer] generated this result transmitted ref erence range: 0 - 5 HP F. The reference range was not used to int erpret this result as normal/abnormal . BACTERIA (test code = Negative Negative 3117263417) MUCOUS (test code = Slight Negative LPF A 0749463279) SQ EPITH (test code = HPF 2049769819) CA OXALATE (test code = See_Comment [Au tomated message] 2521800069) The system [employer] generated this result transmitted ref erence range: <=1 HPF. The reference range was not used to int erpret this result as normal/abnormal . TRANS EPI (test code = <1 See_Comment [Aut omated message] 6078742085) The system [employer] generated this result transmitted ref erence range: <=1 HPF. The reference range was not used to int erpret this result as normal/abnormal . Lab Interpretation Abnormal (test code = 96921-2) [facility] 1 [id number] 00:22:38Elevation of the right hemidiaphragm of moderate patchy opacities in theright lung base which may bedue to atelectasis or pneumonia. RL: 4131 End of report CHEST SINGLE VIEW HISTORY: SOB ORDERING PHYSICIAN: ?CAROLINA SAN TECHNIQUE: Frontal view of chest COMPARISON: None available. FINDINGS: The cardiac silhouette is mildly enlarged There is elevation of the right hemidiaphragm. There are moderate patchyopacities in the right lung base. No large pleural effusion. Nopneumothorax. No acute osseous abnormality. [facility], Radiant Results Inft User - 06/25/2020 6:23 PM CSTCHEST SINGLE VIEWHISTORY: SOB ORDERING PHYSICIAN: CAROLINA BENSONECHNIQUE: Frontal view of chestCOMPARISON: None available.FINDINGS:The cardiac silhouette is mildly enlargedThere is elevation of the right hemidiaphragm. There are moderate patchyopacities in the right lung base. No large pleural effusion. Nopneumothorax.No acute osseous abnormality. IMPRESSIONElevationof the right hemidiaphragm of moderate patchy opacities in theright lung base which may be due to atelectasis or pneumonia.RL: 4131 End of report [facility] IrvingTroponin [id number] 00:18:00 Test Item Value Reference Range Interpretation Comments TROPONIN I (test <0.012 See_Comment [Automated code = 1879011320) message] The system which generated this result [...] ? Lab Interpretation Normal (test code = 94988-6) [facility]MINAL [id number] 00:15:00 Test Item Value Reference Range Interpretation Comments NT-proBNP (test code 175 pg/mL See_Comment H [Autom ated = 4978751240) message] The system which generated this result transmitted reference range : <=125. The reference range was not used to interpret this result as normal/abnormal . MADALYN (test code = MADALYN) Biotin has been reported to cause a negative bias, interpret results relative to patient's use of biotin. Lab Interpretation Abnormal (test code = 59709-1) [facility] HospitalCOVID-[facility] (ID NOW RAPID TESTING)2020-06-26 00:08:00 Test Item Value Reference Range Interpretation Comments SARS-CoV-2 Rapid ID NOW Not Detected Not Detected (test code = 35091-4) MADALYN (test code = MADALYN) ID NOW COVID-19 Assay is an isothermal nucleic acid amplification test intended for the qualitative detection of nucleic acid from SARS-CoV-2 viral RNA in nasopharyngeal (CUT OUT PRESS OPERATOR) specimens. It is used under Emergency [...] indicated. Lab Interpretation Normal (test code = 51204-6) [facility] (NA, K, CL, CO2, GLUCOSE, BUN, CREATININE, CA)2020-06-26 00:06:00 Test Item Value Reference Range Interpretation Comments NA (test code = 137 mmol/L 135-145 6864964335) K (test code = 3.4 mmol/L 3.5-5 L 3214934197) CL (test code = 104 mmol/L 98-108 2813386403) CO2 TOTAL (test code = 26 mmol/L 23-31 5877614862) AGAP (test code = 2-16 1819848507) BUN (test code = 6 mg/dL 7-23 L 8882077443) GLUCOSE (test code = 118 mg/dL 70-110 H 9052888417) CREATININE (test code = 0.60 mg/dL 0.6-1.25 4997405069) CALCIUM (test code = 7.9 mg/dL 8.6-10.6 L 0957652102) eGFR Calculation mL/min/1.73m2 (Non-) (test code = 5456917042) eGFR Calculation mL/min/1.73m2 () (test code = 0491857099) MADALYN (test code = MADALYN) Association of [...] tests). Lab Interpretation Abnormal (test code = 77635-3) [facility] HospitalHep[facility] Function Panel (ALB, T.PRO, BILI T, BU/BC, ALT, AST, ALK PHOS)2020-06-26 00:06:00 Test Item Value Reference Range Interpretation Comments TOTAL BILI (test code = 9863628870) 2.2 mg/dL 0.1-1.1 H BILI UNCON (test code = 4562106491) 1.8 mg/dL 0.1-1.1 H BILI CONJ (test code = 4204319914) 0.0 mg/dL 0-0.3 T PROTEIN (test code = 3837440161) 6.8 g/dL 6.3-8.2 ALBUMIN (test code = 3060831215) 3.1 g/dL 3.5-5 L ALK PHOS (test code = 4704295995) 162 U/L 34-122 H ALTv (test code = 1742-6) 22 U/L 5-50 AST(SGOT) (test code = 3818236913) 42 U/L 13-40 H Lab Interpretation (test code = Abnormal 74703-9) [facility] HospitalLipase [id number] 00:06:00 Test Item Value Reference Range Interpretation Comments LIPASE (test code = 0039384595) 156 U/L 0-220 Lab Interpretation (test code = Normal 34343-7) [facility] HospitalCBC with [id number] 00:00:00 Test Item Value Reference Range Interpretation [...] RDW-SD (test code = 49.4 fL 38.5-51.6 69518-8) RDW-CV (test code = 21.6 % 12.1-15.4 H 788-0) PLT (test code = See_Comment L [Automated 777-3) message] The sy stem which generated this result transmitted reference range : 150 - 328 10*3/ ?L. The reference r mela was not used to interpret this result as normal/abnormal . MPV (test code = Not Measure d 05977-5) IPF % (test code = 1.9 % 1.2-10.7 Platelet count 5513167406) measured by fluorescence method. NRBC/100 WBC (test See_Comment [Automat ed code = 9907034461) message] The system which generated this result transmitted reference range : 0.0 - 10.0 /100 WBCs. The refer ence range was not u sed to interpret th is result as normal/abnormal . NRBC x10^3 (test code <0.01 See_Comment [Auto mated = 0884662740) message] The s ystem which generated this result transmitted reference range : 10*3/?L. The reference range was not used to interpret this result as normal/abnormal . GRAN MAT (NEUT) % 44.8 % (test code = 770-8) IMM GRAN % (test code 0.20 % = 1424491841) LYMPH % (test code = 37.2 % 736-9) MONO % (test code = 13.6 % 5905-5) EOS % (test code = 2.7 % 713-8) BASO % (test code = 1.5 % 706-2) GRAN MAT x10^3(ANC) 2.47 10*3/uL 1.99-6.95 (test code = 4827663241) IMM GRAN x10^3 (test <0.03 0-0.06 code = 2402412953) LYMPH x10^3 (test code 2.05 10*3/uL 1.09-3.23 = 731-0) MONO x10^3 (test code 0.75 10*3/uL 0.36-1.02 = 742-7) EOS x10^3 (test code = 0.15 10*3/uL 0.06-0.53 711-2) BASO x10^3 (test code 0.08 10*3/uL 0.01-0.09 = 704-7) Lab Interpretation Abnormal (test code = 39809-8) [facility] HospitalMISCELLANEOUS LAB [id number] 12:02:00 Test Item Value Reference Range Interpretation Comments SCAN RESULT (test code = 0967541) SARS-COV2/RT-PCR ([facility])2020-03-13 20:20:00 Test Item Value Reference Range Interpretation Comments SARS-COV2/RT-PCR (test Negative Not Detected, Negative, code = 7617408) See external report for linked test SARS-COV-2 PERFORMING LAB [facility] KAT (test code = 7715038) Negative result for this test determines that [...] 564(g) of the Act.Fact Sheet for Healthcare Providers:https://www.[employer]/sites/default/files/product/documents/Fact_Shee q_CT_Spdyfgzsp_Ezid_UMLZ-IdQ-4.pdfFact Sheet for Healthcare Patients:https://www.[employer]/sites/default/files/product/ documents/Enup_Hmmig_Algbbnbk_Cxne_BVRY-AqK-7.pdfPerforming Laboratory:[facility], [place] [address]MS, ABDOMEN, WITH 2020-03-13 14:43:00REFERRING : ANIL SALVADOR Include Abdominal VesselsUnlisted Reason for Exam - Click Yes and EnterReason Below- >YesUnlisted Reason for Exam->listed for liver transplant, [facility] : 1955 Sex: MFINAL [...] De Dios MDReport Verified Date/Time: 03/13/2020 14:43:24 ALPHA FETOPROTEIN (AFP), TUMOR [id number] 13:25:00 Test Item Value Reference Range Interpretation Comments ALPHA-FETOPROTEIN (BEAKER) (test code < ng/mL <10.0 = 1094) Forensic Sergeant ID - AAHAMIDCOMPREHENSIVE METABOLIC [id number] 12:54:00 Test Item Value Reference Range Interpretation [...] S NOT APPLICABLE FOR DIALYSIS PATIEN TS. Forensic Sergeant ID - AAHAMIDDARLENE, BONE DENSITY [id number] 12:46:00REFERRING : ANIL SALVADOR Reason for Exam:->on liver transplant waiting list [facility] : 1955 Sex: MFINAL REPORT Bone density study, 03/13/2020 Clinical History: Screening Bone mineral density measurementLumbar spine1.110 gm/qy5Xwdmdet neck0.918 gm/cm2 Standard deviation from young adult [...] MDReport Verified Date/Time: 03/13/2020 12:46:53 Reading Location: [address] Reading Room BILIRUBIN, [id number] 12:38:00 Test Item Value Reference Range Interpretation Comments BILIRUBIN DIRECT (BEAKER) (test 1.0 mg/dL 0.1-0.5 H code = 706) Forensic Sergeant ID - AAHAMIDPROTHROMBIN TIME/[id number] 12:23:00 Test Item Value Reference Range Interpretation [...] mechanical heart valves.CBC W/PLT COUNT & AUTO [id number] 12:16:00 Test Item Value Reference Range Interpretation [...] PERCENT (BEAKER) (test code = 2801) BLOOD [id number] 20:00:00 Test Item Value Reference Range Interpretation Comments CULTURE (BEAKER) (test No growth in 5 days code = 1095) BLOOD [id number] 20:00:00 Test Item Value Reference Range Interpretation Comments CULTURE (BEAKER) (test No growth in 5 days code = 1095) POCT-GLUCOSE [id number] 07:47:00 Test Item Value Reference Range Interpretation Comments POC-GLUCOSE METER 121 mg/dL 70-110 H : [facility] (test code = AURELIOMARYAN Arita [facility], 1538) 44369: Forensic Sergeant/Techni zaire ID = [id number] for RADHA GARVEY HEPATIC FUNCTION [id number] 07:24:00 Test Item Value Reference Range Interpretation [...] (test code = 25 U/L 6-55 347) Forensic Sergeant ID - KRISHNA calix ictericPOCT-GLUCOSE [id number] 22:18:00 Test Item Value Reference Range Interpretation Comments POC-GLUCOSE METER 143 mg/dL 70-110 H : TESTED A T [facility] 6720 (BEAKER) (test code = [facility], 1538) 47755: Forensic Sergeant/Techni zaire ID = [id number] for CA RBAJAL, ANU POCT-GLUCOSE [id number] 17:24:00 Test Item Value Reference Range Interpretation Comments POC-GLUCOSE METER 214 mg/dL 70-110 H : TESTED A T [facility] 6720 ([facility]) (test code = [facility], [facility]8) 51963: Forensic Sergeant/Techni zaire ID = [id number] for SA NTOS, WADE POCT-GLUCOSE [id number] 13:32:00 Test Item Value Reference Range Interpretation Comments POC-GLUCOSE METER 127 mg/dL 70-110 H : TESTED A T [facility] 6720 ([facility]) (test code = [facility], [facility]) 47212: Forensic Sergeant/Techni zaire ID = [id number] for SA NTOS, WADE POCT-GLUCOSE [id number] 12:08:00 Test Item Value Reference Range Interpretation Comments POC-GLUCOSE METER 124 mg/dL 70-110 H : TESTED A T [facility] 6720 ([facility]) (test code = [facility], 1538) 46173: Forensic Sergeant/Techni zaire ID = [id number] for FO SNJAQUI, CHARI POCT-GLUCOSE [id number] 08:16:00 Test Item Value Reference Range Interpretation Comments POC-GLUCOSE METER 117 mg/dL 70-110 H : TESTED A T [facility] 6720 (BEAKER) (test code = [facility], 1538) 31389: Forensic Sergeant/Techni zaire ID = [id number] for SA NTOS, WADE BASIC METABOLIC [id number] 06:13:00 Test Item Value Reference Range Interpretation [...] S NOT APPLICABLE FOR DIALYSIS PATIEN TS. Forensic Sergeant ID - KRISHNA ZAVALETApecimen slightly ictericHEPATIC FUNCTION [id number] 06:13:00 Test Item Value Reference Range Interpretation [...] (test code = 27 U/L 6-55 347) Forensic Sergeant ID - KRISHNA Multanin slightly ictericPROTHROMBIN TIME/[id number] 05:46:00 Test Item Value Reference Range Interpretation [...] mechanical heart valves.CBC W/PLT COUNT & AUTO [id number] 05:21:00 Test Item Value Reference Range Interpretation [...] PERCENT (BEAKER) (test code = 2801) POCT-GLUCOSE [id number] 22:38:00 Test Item Value Reference Range Interpretation Comments POC-GLUCOSE METER 181 mg/dL 70-110 H : TESTED Lana Davis [facility] 67[address] (BEAKER) (test code = [facility], 1538) 97890: Forensic Sergeant/Techni zaire ID = [id number] for CAREY LINARES RON (CELLAVISION MANUAL DIFF)2019-12-28 15:15:00 Test Item Value [...] CONCENTRATION Decreased (CELLAVISION)(BEAKER) (test code = 3438) Forensic Sergeant ID - Carter-Ulisses Villafuerte comments: Slide comments:CBC W/PLT COUNT & AUTO [id number] 15:11:00 Test Item Value Reference Range Interpretation [...] 0-1 H PERCENT (BEAKER) (test code = 2802) POCT-GLUCOSE [id number] 10:15:00 Test Item Value Reference Range Interpretation Comments POC-GLUCOSE METER 178 mg/dL 70-110 H : TESTED Lana Davis [facility] 6720 (BEAKER) (test code = [facility], 1538) 00757: Forensic Sergeant/Techni zaire ID = [id number] for DELPHINE JUAREZ POCT-GLUCOSE [id number] 09:08:00 Test Item Value Reference Range Interpretation Comments POC-GLUCOSE METER 167 mg/dL 70-110 H : TESTED A T [facility] 6720 (BEAKER) (test code = [facility], 1538) 38966: Forensic Sergeant/Techni zaire ID = [id number] for WONG COWAN BASIC METABOLIC [id number] 07:06:00 Test Item Value Reference Range Interpretation [...] S NOT APPLICABLE FOR DIALYSIS PATIEN TS. Forensic Sergeant ID - PIAYA LSpecimen slightly ictericHEPATIC FUNCTION [id number] 07:06:00 Test Item Value Reference Range Interpretation [...] (test code = 20 U/L 6-55 347) Forensic Sergeant ID - KRISHNA ZAVALETApecimekaz slightly ictericPOCT-GLUCOSE [id number] 22:05:00 Test Item Value Reference Range Interpretation Comments POC-GLUCOSE METER 216 mg/dL 70-110 H : TESTED A T [facility] 6720 (BEAKER) (test code = [facility], 1538) 75206: Forensic Sergeant/Techni zaire ID = [id number] for DAVID TALBERT POCT-GLUCOSE [id number] 17:07:00 Test Item Value Reference Range Interpretation Comments POC-GLUCOSE METER 244 mg/dL 70-110 H : TESTED A T [facility] 6720 (BEAKER) (test code = [facility], 1538) 05322: Forensic Sergeant/Techni zaire ID = [id number] for IB JEBM, ANUSHALEM CBC W/PLT COUNT & AUTO [id number] 12:15:00 Test Item Value Reference Range Interpretation [...] PERCENT (BEAKER) (test code = 2801) POCT-GLUCOSE [id number] 11:54:00 Test Item Value Reference Range Interpretation Comments POC-GLUCOSE METER 226 mg/dL 70-110 H : TESTED A T [facility] 6720 (BEAKER) (test code = [facility], 1538) 56197: Forensic Sergeant/Techni zaire ID = [id number] for CHUCHO SALDIVAR BASIC METABOLIC [id number] 08:18:00 Test Item Value Reference Range Interpretation [...] S NOT APPLICABLE FOR DIALYSIS PATIEN TS. Forensic Sergeant ID - NTPPOCT-GLUCOSE [id number] 08:07:00 Test Item Value Reference Range Interpretation Comments POC-GLUCOSE METER 166 mg/dL 70-110 H : TESTED A T [facility] 6720 (BEAKER) (test code = [facility], 153) 55821: Forensic Sergeant/Techni zaire ID = [id number] for CHUCHO SALDIVAR HEPATIC FUNCTION [id number] 05:05:00 Test Item Value Reference Range Interpretation [...] (test code = 19 U/L 6-55 347) Forensic Sergeant ID - EDASISpecimen slightly ictericPOCT-GLUCOSE [id number] 17:47:00 Test Item Value Reference Range Interpretation Comments POC-GLUCOSE METER 222 mg/dL 70-110 H : TESTED A T [facility] 6720 (BEAKER) (test code = [facility], 1538) 16290: Forensic Sergeant/Techni zaire ID = [id number] for BRAXTON MORAN POCT-GLUCOSE [id number] 12:25:00 Test Item Value Reference Range Interpretation Comments POC-GLUCOSE METER 311 mg/dL 70-110 H : TESTED A T [facility] 6720 (BEAKER) (test code = [facility], 1538) 48028: Forensic Sergeant/Techni zaire ID = [id number] for BRAXTON MORAN POCT-GLUCOSE [id number] 07:49:00 Test Item Value Reference Range Interpretation Comments POC-GLUCOSE METER 190 mg/dL 70-110 H : TESTED A T [facility] 6720 (BEAKER) (test code = NICOLE Arita [facility], 1538) 80702: Forensic Sergeant/Techni zaire ID = [id number] for BRAXTON MORAN VITAMIN B12 AND [id number] 06:11:00 Test Item Value Reference Range Interpretation Comments VITAMIN B12 (BEAKER) (test code = 873 pg/mL 213-816 H 774) FOLATE (BEAKER) (test code = 362) 12.30 ng/mL >=7.00 Forensic Sergeant ID - EDASIBASIC METABOLIC [id number] 05:21:00 Test Item Value Reference Range Interpretation [...] S NOT APPLICABLE FOR DIALYSIS PATIEN TS. Forensic Sergeant ID - EDASIHEPATIC FUNCTION [id number] 05:21:00 Test Item Value Reference Range Interpretation [...] (test code = 19 U/L 6-55 347) Forensic Sergeant ID - EDASICBC W/PLT COUNT & AUTO [id number] 05:12:00 Test Item Value Reference Range Interpretation [...] PERCENT (BEAKER) (test code = 2801) PROTHROMBIN TIME/[id number] 04:56:00 Test Item Value Reference Range Interpretation [...] is2.5-3.5 for patients wiht mechanical heart valves.POCT-GLUCOSE [id number] 22:11:00 Test Item Value Reference Range Interpretation Comments POC-GLUCOSE METER 195 mg/dL 70-110 H : TESTED A T [facility] 6720 (BEAKER) (test code = [facility] [place], 1538) 65563: Forensic Sergeant/Techni zaire ID = [id number] for MELISSA MORELIAAung WONG HEMOGLOBIN AND [id number] 16:15:00 Test Item Value Reference Range Interpretation Comments HEMOGLOBIN (BEAKER) (test code = 8.6 GM/DL 13.7-17.5 L 410) HEMATOCRIT (BEAKER) (test code = 30.2 % 40.1-51.0 L 411) Forensic Sergeant ID - [id number] 13:02:00 Test Item Value Reference Range Interpretation Comments FERRITIN (BEAKER) (test code = 73.10 ng/mL 5.00-275.00 361) Forensic Sergeant ID - EDASIIRON, TIBC, % SAT. (WITHOUT FERRITIN)2019-12-25 12:42:00 Test Item Value Reference Range Interpretation Comments IRON (BEAKER) (test code = 547) 29.0 ug/dL 40.0-160.0 L TOTAL IRON BINDING CAPACITY 151 ug/dL 250-450 L (BEAKER) (test code = 769) IRON % SATURATION (2) (BEAKER) 19 % 20-55 L (test code = 2590) Forensic Sergeant ID - EDASICOMPREHENSIVE METABOLIC [id number] 06:44:00 Test Item Value Reference Range Interpretation [...] S NOT APPLICABLE FOR DIALYSIS PATIEN TS. Forensic Sergeant ID - EDASICBC W/PLT COUNT & AUTO [id number] 05:55:00 Test Item Value Reference Range Interpretation [...] PERCENT (BEAKER) (test code = 2801) POCT-GLUCOSE [id number] 23:39:00 Test Item Value Reference Range Interpretation Comments POC-GLUCOSE METER 307 mg/dL 70-110 H : TESTED A T [facility] 6720 (BEAKER) (test code = NICOLE ALAN [place], 1538) [address]: Forensic Sergeant/Techni zaire ID = [id number] for Erendira Talbert (contrac t) RAD, CHEST, 1 VIEW, NON [id number] 18:52:00REFERRING MD: ANIL SALVADOR Reason for exam:->sobShould [...] MDReport Verified Date/Time: 12/24/2019 18:52:34 Reading Location: [address] Consult Reading Room BASI METABOLIC PANEL [...] Specimen slightly ictericCBC W/PLT COUNT & AUTO [id number] 08:54:00 Test Item Value Reference Range Interpretation [...] (BEAKER) (test code = 2801) HEPATITIS C [id number] 12:25:00 Test Item Value Reference Range Interpretation Comments HEPATITIS C ANTIBODY (BEAKER) (test Reactive Nonreactive A code = 367) ALPHA FETOPROTEIN (AFP), TUMOR [id number] 15:45:00 Test Item Value Reference Range Interpretation Comments ALPHA-FETOPROTEIN (BEAKER) (test 2.7 ng/mL <10.0 code = 1094) BASIC METABOLIC [id number] 15:36:00 Test Item Value Reference Range Interpretation [...] DIALYSIS PATIEN TS. Specimen slightly ictericHEPATIC FUNCTION [id number] 15:35:00 Test Item Value Reference Range Interpretation [...] 21 U/L 6-55 347) Specimen slightly ictericPROTHROMBIN [id number] 15:00:00 Test Item Value Reference Range Interpretation [...] mechanical heart valves.CBC W/PLT COUNT & AUTO [id number] 14:53:00 Test Item Value Reference Range Interpretation [...] code = 2801) ALPHA FETOPROTEIN (AFP), TUMOR [id number] 14:10:00 Test Item Value Reference Range Interpretation Comments ALPHA-FETOPROTEIN (BEAKER) (test 2.7 ng/mL <10.0 code = 1094) BASIC METABOLIC [id number] 13:52:00 Test Item Value Reference Range Interpretation [...] DIALYSIS PATIEN TS. Specimen slightly ictericHEPATIC FUNCTION [id number] 13:52:00 Test Item Value Reference Range Interpretation [...] 24 U/L 6-55 347) Specimen slightly ictericPROTHROMBIN [id number] 13:49:00 Test Item Value Reference Range Interpretation [...] mechanical heart valves.CBC W/PLT COUNT & AUTO [id number] 13:35:00 Test Item Value Reference Range Interpretation [...] (test code = 2801) POCT HEMOGLOBIN A1C [id number] 21:30:00 Test Item Value Reference Range Interpretation Comments POCT HBA1C (test code = 4548-4) 7.4 % 4-6 A Lab Interpretation (test code = Abnormal 76002-6) [facility] [id number] 21:30:00 Test Item Value Reference Range Interpretation Comments POCT HBA1C (test code = 4548-4) 7.4 % 4-6 A Lab Interpretation (test code = Abnormal 93735-6) [id number] 14:59:00 Test Item Value Reference Range Interpretation Comments T4 TOTAL (BEAKER) (test code = 895) 5.7 ug/dL 4.9-11.7 [id number] 13:20:00 Test Item Value Reference Range Interpretation Comments T3 TOTAL (BEAKER) (test code = 656) 113 ng/dL 48-159 CYTOMEGALOVIRUS ANTIBODY, [id number] 11:11:00 Test Item Value Reference Range Interpretation Comments CYTOMEGALOVIRUS, IGG (BEAKER) Positive Negative, Equivocal A (test code = 3429) CMV IgG Result Interpretation: </= 0.8 Al Negative 0.9-1.0 Al Equivocal >/=1.1 Al PositiveCYTOMEGALOVIRUS ANTIBODY, [id number] 11:11:00 Test Item Value Reference Range Interpretation Comments CYTOMEGALOVIRUS IGM ANTIBODY Negative Negative, Equivocal (BEAKER) (test code = 3437) CMV IgM Result Interpretation: </= 0.8 Al Negative 0.9-1.0 Al Equivocal >/= 1.1 Al PositiveEBV ANTIBODY, [id number] 11:08:00 Test Item Value Reference Range Interpretation [...] Equivocal >/= 1.1 Al PositiveVARICELLA ZOSTER ANTIBODY, [id number] 11:08:00 Test Item Value Reference Range Interpretation Comments VARICELLA ZOSTER IGG (AL) (BEAKER) > (test code = 3197) VARICELLA ZOSTER RESULT INTERPRETATIONS: <=0.8 Al Nonreactive: Presumed non-immune to VZV 0.9-1.0 Al Equivocal >=1.1 Al Reactive: Presumed immune to WAOUZCDC-9-[id number] 13:11:00 Test Item Value Reference Range Interpretation Comments ALPHA-1 ANTITRYPSIN (BEAKER) 155.30 mg/dL 90.00-200.00 (test code = 502) HEMOGLOBIN [id number] 13:08:00 Test Item Value Reference Range Interpretation Comments HEMOGLOBIN A1C (BEAKER) (test code = 6.4 % 4.3-6.1 H 368) HEPATITIS A ANTIBODY, [id number] 12:51:00 Test Item Value Reference Range Interpretation Comments HEPATITIS A IGG ANTIBODY (BEAKER) Reactive Nonreactive A (test code = 2797) HEPATITIS C [id number] 12:51:00 Test Item Value Reference Range Interpretation Comments HEPATITIS C ANTIBODY (BEAKER) (test Reactive Nonreactive A code = 367) [id number] 12:48:00 Test Item Value Reference Range Interpretation Comments PROSTATE SPECIFIC ANTIGEN (BEAKER) 0.4 ng/mL 0.0-4.0 (test code = 844) HIV-1 ANTIGEN WITH HIV-1/2 [id number] 12:48:00 Test Item Value Reference Range Interpretation Comments HIV-1 ANTIGEN WITH HIV 1\\T\\2 Nonreactive Nonreactive ANTIBODY (2) (BEAKER) (test code = 2586) VITAMIN D, 33-[id number] 12:46:00 Test Item Value Reference Range Interpretation Comments VITAMIN D 25-OH (BEAKER) (test code 7.7 ng/mL 6.6-49.9 = 2764) Effective 03/08/2017: Reference Range ChangeNew: 6.6-49.9 ng/mL Previous: 13.0-47.8 ng/mLRecommended Vitamin D Target Range: 30.0-40.0 ng/mLURINALYSIS W/ [id number] 11:55:00 Test Item Value Reference Range Interpretation [...] 1579) 2 /LPF SOURCE(BEAKER) (test code = 5228) CRYPTOCOCCAL [id number] 11:10:00 Test Item Value Reference Range Interpretation Comments CRYPTOCOCCAL ANTIGEN, SERUM Negative Negative, Interference (BEAKER) (test code = 1828) [id number] 10:59:00 Test Item Value Reference Range Interpretation Comments THYROID STIMULATING HORMONE 2.10 uIU/mL 0.35-4.94 (BEAKER) (test code = 772) [id number] 10:59:00 Test Item Value Reference Range Interpretation Comments FERRITIN (BEAKER) (test code = 361) 69 ng/mL 5-275 [id number] 10:51:00 Test Item Value Reference Range Interpretation Comments RPR SCREEN (BEAKER) (test code = Nonreactive Nonreactive 420) [id number] 10:49:00 Test Item Value Reference Range Interpretation Comments TRANSFERRIN (BEAKER) (test code = 197 mg/dL 174-382 541) Specimen slightly [id number] 10:45:00 Test Item Value Reference Range Interpretation Comments MAGNESIUM (BEAKER) (test code = 1.5 mg/dL 1.6-2.6 L 627) [id number] 10:45:00 Test Item Value Reference Range Interpretation Comments PHOSPHORUS (BEAKER) (test code = 3.6 mg/dL 2.3-4.7 604) URIC [id number] 10:45:00 Test Item Value Reference Range Interpretation Comments URIC ACID (BEAKER) (test code = 4.8 mg/dL 2.6-7.2 773) Specimen slightly ictericCOMPREHENSIVE METABOLIC [id number] 10:45:00 Test Item Value Reference Range Interpretation [...] FOR DIALYSIS PATIEN TS. Specimen slightly ictericLIPID [id number] 10:45:00 Test Item Value Reference Range Interpretation [...] 160-189 Very High >=190 Specimen slightly ictericBILIRUBIN, [id number] 10:45:00 Test Item Value Reference Range Interpretation Comments BILIRUBIN DIRECT (BEAKER) (test 1.6 mg/dL 0.1-0.5 H code = 706) GAMMA GLUTAMYL TRANSFERASE (GGT)2018-12-20 10:45:00 Test Item Value Reference Range Interpretation Comments GAMMA GLUTAMYL TRANSFERASE (BEAKER) 33 U/L 9-64 (test code = 364) Specimen slightly [id number] 10:42:00 Test Item Value Reference Range Interpretation Comments PARTIAL THROMBOPLASTIN TIME 37.9 seconds 22.5-36.0 H (BEAKER) (test code = 760) PROTHROMBIN TIME/[id number] 10:36:00 Test Item Value Reference Range Interpretation [...] INR is2.5-3.5 for patients wiht mechanical heart valves.[id number] 10:36:00 Test Item Value Reference Range Interpretation Comments ETHANOL (BEAKER) (test code = 400) < mg/dL <=10 [id number] 10:36:00 Test Item Value Reference Range Interpretation Comments FIBRINOGEN LEVEL (BEAKER) (test 207 mg/dl 225-434 L code = 658) BLOOD GAS, [id number] 10:35:00 Test Item Value Reference Range Interpretation [...] 21.0 % CBC W/PLT COUNT & AUTO [id number] 10:25:00 Test Item Value Reference Range Interpretation [...] PERCENT (BEAKER) (test code = 2801) CALCIUM, [id number] 10:20:00 Test Item Value Reference Range Interpretation Comments CALCIUM IONIZED (BEAKER) (test 1.05 mmol/L 1.12-1.27 L code = 698) PH, BLOOD (BEAKER) (test code = 7.41 1810) RAD, MANDIBLE, MIN 4 [id number] 16:56:00REFERRING CARO SALVADOR Reason for Exam:->pretransplant liver evaluationFINAL REPORT TECHNIQUE: Minimum four views of the mandible. INDICATION: pretransplant liver evaluation. COMPARISON: None. FINDINGS:No fracture or dislocation.No periapical lucencies.Caries of a maxillary molar, side indeterminate.Mild degenerative disc changes at C4-C5, C5-C6, and C6-C7. IMPRESSION: No periapical lucency. Caries of a maxillary molar, side indeterminate. Signed:Tawanda Alvarez MDReport Verified Date/Time: 12/19/2018 16:56:31 Reading Location: [address] Radiology Reading Room RAD, CHEST, 2 [id number] 15:51:00REFERRING : ANIL SALVADOR Reason for Exam:->pretransplant [...] MDReport Verified Date/Time: 12/19/2018 15:51:17 Reading Location: [facility] Mammo Reading Room MR, ABDOMEN, [id number] 14:51:00 REFERRING : ANIL VEGAINAL REPORT TECHNIQUE: MRI of the [...] and large esophageal varices. Signed: Tawanda Alvarez [facility] Verified Date/Time: 12/19/2018 14:51:24 Reading Location: [address] Radiology Reading Room [facility] 2018-12-06 11:12:00 Test Item Value Reference Range Interpretation Comments ETHANOL (BEAKER) (test code = 400) < mg/dL <=10 BASIC METABOLIC [id number] 10:56:00 Test Item Value Reference Range Interpretation [...] DIALYSIS PATIEN TS. Specimen moderately ictericHEPATIC FUNCTION [id number] 10:56:00 Test Item Value Reference Range Interpretation [...] 27 U/L 6-55 347) Specimen moderately ictericPROTHROMBIN TIME/[id number] 10:40:00 Test Item Value Reference Range Interpretation [...] mechanical heart valves.CBC W/PLT COUNT & AUTO [id number] 10:38:00 Test Item Value Reference Range Interpretation [...] PERCENT (BEAKER) (test code = 2801) BLOOD [id number] 08:00:00 Test Item Value Reference Range Interpretation Comments CULTURE (BEAKER) (test No growth in 5 days code = 1095) BLOOD [id number] 08:00:00 Test Item Value Reference Range Interpretation Comments CULTURE (BEAKER) (test No growth in 5 days code = 1095) BODY FLUID CULTURE + GRAM [id number] 12:20:00 Test Item Value Reference Range Interpretation Comments CULTURE (BEAKER) (test code No growth = 1095) GRAM STAIN RESULT (BEAKER) 1+ WBCs (test code = 1123) GRAM STAIN RESULT (BEAKER) No organisms seen (test code = 29571) HEPATITIS C PCR, [id number] 08:32:00 Test Item Value Reference Range Interpretation Comments HCV RESULT COMPONENT HCV RNA not detected HCV RNA not detected (BEAKER) (test code = 2699) This test uses a Real-Time Polymerase Chain Reaction (RT-PCR) methodology and was performed using K[employer] Ampliprep/KHOA TaqMan HCV test kit version 2.0 ([employer]).Reportable range for this assay is 15 - 100,000,000 IU per mL (1.18 - 8.00 Log IU/mL).POCT-GLUCOSE [id number] 08:09:00 Test Item Value Reference Range Interpretation Comments POC-GLUCOSE METER 117 mg/dL 70-110 H TESTED AT [facility] 6720 ([facility]) (test code = NICOLE Arita [facility] 1538) [address] CALCIUM, [id number] 05:54:00 Test Item Value Reference Range Interpretation Comments CALCIUM IONIZED (BEAKER) (test 1.01 mmol/L 1.12-1.27 L code = 698) PH, BLOOD (BEAKER) (test code = 7.45 1810) COMPREHENSIVE METABOLIC [id number] 05:07:00 Test Item Value Reference Range Interpretation [...] APPLICABLE FOR DIALYSIS PATIEN TS. Specimen slightly [id number] 05:06:00 Test Item Value Reference Range Interpretation Comments PHOSPHORUS (BEAKER) (test code = 3.3 mg/dL 2.3-4.7 604) [id number] 05:06:00 Test Item Value Reference Range Interpretation Comments MAGNESIUM (BEAKER) (test code = 1.5 mg/dL 1.6-2.6 L 627) CBC W/PLT COUNT & AUTO [id number] 04:43:00 Test Item Value Reference Range Interpretation [...] PERCENT (BEAKER) (test code = 2801) POCT-GLUCOSE [id number] 21:35:00 Test Item Value Reference Range Interpretation Comments POC-GLUCOSE METER 154 mg/dL 70-110 H TESTED AT [facility] 6720 (BEAKER) (test code = NICOLE TRUJILLO 1538) [address] POCT-GLUCOSE [id number] 17:21:00 Test Item Value Reference Range Interpretation Comments POC-GLUCOSE METER 138 mg/dL 70-110 H TESTED AT [facility] 6720 (BEAKER) (test code = NICOLE Arita [facility] 1538) [address] POCT-GLUCOSE [id number] 13:27:00 Test Item Value Reference Range Interpretation Comments POC-GLUCOSE METER 166 mg/dL 70-110 H TESTED AT [facility] 6720 (BEAKER) (test code = NICOLE Arita [facility] 1538) [address] CBC W/PLT COUNT & AUTO [id number] 12:00:00 Test Item Value Reference Range Interpretation [...] 3438) Received comment: User comments: Slide comments:POCT-GLUCOSE [id number] 11:52:00 Test Item Value Reference Range Interpretation Comments POC-GLUCOSE METER 180 mg/dL 70-110 H TESTED AT [facility] 6720 (BEAKER) (test code = NICOLE ALAN [place] 1538) [address] POCT-GLUCOSE [id number] 08:09:00 Test Item Value Reference Range Interpretation Comments POC-GLUCOSE METER 115 mg/dL 70-110 H TESTED AT [facility] 6720 (BEAKER) (test code = NICOLE ALAN [place] 1538) [address] COMPREHENSIVE METABOLIC [id number] 05:59:00 Test Item Value Reference Range Interpretation [...] APPLICABLE FOR DIALYSIS PATIEN TS. Specimen slightly [id number] 05:57:00 Test Item Value Reference Range Interpretation Comments MAGNESIUM (BEAKER) (test code = 1.6 mg/dL 1.6-2.6 627) POCT-GLUCOSE [id number] 22:30:00 Test Item Value Reference Range Interpretation Comments POC-GLUCOSE METER 186 mg/dL 70-110 H TESTED AT [facility] 6720 ([facility]) (test code = NICOLE ALAN [place] 1538) [address] POCT-GLUCOSE [id number] 18:33:00 Test Item Value Reference Range Interpretation Comments POC-GLUCOSE METER 117 mg/dL 70-110 H TESTED AT [facility] 6720 (BEAKER) (test code = NICOLE ALAN [place] 1538) [address] U/S, [id number] 17:34:00REFERRING : ANIL MODESTO Please give 25g albumin if over 3L [...] 2% lidocaine anesthesia was administered. A 5 Nigerien catheter was advanced into the peritoneal cavity and 1300 cc of addison fluid was removed. The catheter was removed without immediate complication. Samples left with interstitial sent to the lab for analysis. IMPRESSION:Uncomplicated ultrasound-guided paracentesis with 1300 cc fluid removed. Signed: Mauricio Cullen MDReport Verified Date/Time: 10/29/2018 17:34:00 Reading Location: [address] Ultrasound Reading Room VANCOMYCIN LEVEL, TROUGH 2018-10-29 17:22:00 Test Item Value Reference Range Interpretation Comments VANCOMYCIN TROUGH (BEAKER) (test 7.3 ug/mL 10.0-20.0 L code = 522) CBC W/PLT COUNT & AUTO [id number] 15:00:00 Test Item Value Reference Range Interpretation [...] = 2801) BODY FLUID CELL COUNT WITH [id number] 13:45:00 Test Item Value Reference Range Interpretation [...] Tube (test code = 2873) RESPIRATORY PANEL [id number] 12:27:00 Test Item Value Reference Range Interpretation [...] decisions. This sample was tested at the [facility] using the rumr: turn off the lightsArray Respiratory Panel. It is FDA cleared and has been verified and approved by the [facility] for clinical use on nasopharyngeal swab specimens.The performance of the FilmArrayRP has not been established in individuals who received influenza vaccine. Recent administration ofa nasal influenza vaccine may cause false positive results for Influenza A and/orInfluenza B.POCT-GLUCOSE [id number] 12:16:00 Test Item Value Reference Range Interpretation Comments POC-GLUCOSE METER 196 mg/dL 70-110 H TESTED AT [facility] 6720 ([facility]JO[facility]) (test code = NICOEL ALAN [place] 1538) [address] RESPIRATORY PANEL [id number] 10:59:00 Test Item Value Reference Range Interpretation [...] (test Not detected Not detected, code = 4941) Equivocal CORONAVIRUS 229E (BEAKER) Not detected Not [...] decisions. This sample was tested at the [facility] using the [employer] FilmArray Respiratory Panel. It is FDA cleared and has been verified and approved by the [facility] for clinical use on nasopharyngeal swab specimens.The performance of the FilmArrayRP has not been established in individuals who received influenza vaccine. Recent administration ofa nasal influenza vaccine may cause false positive results for Influenza A and/orInfluenza B.POCT-GLUCOSE [id number] 08:15:00 Test Item Value Reference Range Interpretation Comments POC-GLUCOSE METER 184 mg/dL 70-110 H TESTED AT [facility] 6914 ([facility]) (test code = NICOLE AL[place] 1538) [address] CBC W/PLT COUNT & AUTO [id number] 07:49:00 Test Item Value Reference Range Interpretation [...] APPLICABLE FOR DIALYSIS PATIEN TS. Specimen moderately [id number] 04:31:00 Test Item Value Reference Range Interpretation Comments MAGNESIUM (BEAKER) (test code = 1.9 mg/dL 1.6-2.6 627) LACTIC ACID, [id number] 04:18:00 Test Item Value Reference Range Interpretation Comments LACTATE BLOOD VENOUS (2) ([facility]) 1.3 mmol/L 0.5-2.2 (test code = 2872) Specimen moderately ictericPOCT-GLUCOSE [id number] 18:00:00 Test Item Value Reference Range Interpretation Comments POC-GLUCOSE METER 121 mg/dL 70-110 H TESTED AT [facility] 67[address] ([facility]) (test code = NICOLE ALAN [place] 1538) [address] [id number] 12:39:00 Test Item Value Reference Range Interpretation Comments PROCALCITONIN ([facility]) (test code 4.50 ng/mL <0.05 H = 3036) SEPSIS RISK (ng/mL)Low: 0.05-0.50Intermediate: 0.51-2.00High: >=2.01POCT-GLUCOSE [id number] 12:20:00 Test Item Value Reference Range Interpretation Comments POC-GLUCOSE METER 148 mg/dL 70-110 H TESTED AT [facility] 67[address] ([facility]) (test code = NICOLE ALAN [place] 1538) [address] LEGIONELLA ANTIGEN, [id number] 12:13:00 Test Item Value Reference Range Interpretation Comments L. PNEUMOPHILA Negative - see Negative fo r L. SEROGP 1 UR AG comment pneumophila ([employer]) (test code serogrou p 1 antigen, = 1156) suggesting no r ecent or current infe ction with this serog roup. Legionellosis c annot be ruled out si nce other serogroup s and species may cau se disease. STREP PNEUMONIAE [id number] 12:13:00 Test Item Value Reference Range Interpretation Comments STREP PNEUMONIAE Presumptive negative Presumptive negative ANTIGEN ([employer]) for pneumococcal for pneumococcal (test code = 1615) pneumonia - see pneumonia - see comment commen Presumptive negative for pneumococcal pneumonia, suggesting no current or recent pneumococcal infection. Infection due to S. pneumoniae cannot be ruled out since the antigen present in the sample may be below the detection limit of the test. RAPID INFLUENZA A&B [id number] 12:11:00 Test Item Value Reference Range Interpretation Comments RAPID INFLUENZA A AG ([employer]) Negative Negative, Inconclusive (test code = 1622) RAPID INFLUENZA B AG (BEAKER) Negative Negative, Inconclusive (test code = 1623) LACTIC ACID, [id number] 10:51:00 Test Item Value Reference Range Interpretation Comments LACTATE BLOOD VENOUS (2) (BEAKER) 3.0 mmol/L 0.5-2.2 H (test code = 2872) Specimen moderately ictericU/S, ABDOMINAL, [id number] 07:19:00REFERRING MD: ANIL SALVADOR Please perform with dopplersReason for [...] MDReport Verified Date/Time: 10/28/2018 07:19:25 Reading Location: [facility] B1 C013T Transitional Reading Room RAPID DRUG SCREEN, [id number] 07:07:00 Test Item Value Reference Range Interpretation [...] situations. Chain of custody not maintained. Some omfx-ikb-aujrxen medications, as well as adulterants, may cause inaccurate results. Clinical correlation should be applied. A more comprehensive drug screen or confirmation of a detected drug may be performed upon request.CT, BRAIN, WITHOUT [id number] 06:42:00REFERRING MD: ANIL LEROYTFINAL REPORT CT, BRAIN, WITHOUT CONTRAST CLINICAL [...] Verified Date/Time: 10/28/2018 06:42:47 VITAMIN B12 AND [id number] 06:21:00 Test Item Value Reference Range Interpretation Comments VITAMIN B12 (BEAKER) (test code = 719 pg/mL 213-816 774) FOLATE (BEAKER) (test code = 362) 13.7 ng/mL >=7.0 TROPONIN [id number] 06:05:00 Test Item Value Reference Range Interpretation [...] H (test code = 2590) COMPREHENSIVE METABOLIC [id number] 05:44:00 Test Item Value Reference Range Interpretation [...] APPLICABLE FOR DIALYSIS PATIEN TS. Specimen moderately [id number] 05:38:00 Test Item Value Reference Range Interpretation Comments MAGNESIUM (BEAKER) (test code = 2.3 mg/dL 1.6-2.6 627) LACTIC ACID, [id number] 05:32:00 Test Item Value Reference Range Interpretation Comments LACTATE BLOOD VENOUS 4.1 mmol/L 0.5-2.2 H Specime n slightly (2) (BEAKER) (test hemolyzed code = 2872) Specimen moderately ictericTROPONIN [id number] 02:28:00 Test Item Value Reference Range Interpretation [...] disease, and persistent tachyarrhythmia.RAD, ABDOMEN/KUB, 1 VIEW [id number] 02:04:00REFERRING MD: ANIL SALVADOR Reason for exam:->NG [...] [place] MDReport Verified Date/Time: 10/28/2018 02:04:20 HROMBIN TIME/[id number] 01:58:00 Test Item Value Reference Range Interpretation [...] mechanical heart valves.CBC W/PLT COUNT & AUTO [id number] 01:45:00 Test Item Value Reference Range Interpretation [...] User comments: Slide comments:URINALYSIS W/ REFLEX URINE [id number] 01:36:00 Test Item Value Reference Range Interpretation [...] SOURCE(BEAKER) (test code = 2795) COMPREHENSIVE METABOLIC [id number] 01:16:00 Test Item Value Reference Range Interpretation [...] APPLICABLE FOR DIALYSIS PATIEN TS. Specimen moderately [id number] 01:15:00 Test Item Value Reference Range Interpretation Comments AMMONIA (BEAKER) (test code = 348) 69 mol/L 18-72 LACTIC ACID, [id number] 01:08:00 Test Item Value Reference Range Interpretation Comments LACTATE BLOOD VENOUS (2) (BEAKER) 3.2 mmol/L 0.5-2.2 H (test code = 2871) Specimen moderately [id number] 01:08:00 Test Item Value Reference Range Interpretation Comments MAGNESIUM (BEAKER) (test code = 1.1 mg/dL 1.6-2.6 L 627) RAD, CHEST, 1 VIEW, NON [id number] 00:52:00REFERRING : ANIL SALVADOR Reason for exam:->sepsisShould this be [...] MDReport Verified Date/Time: 10/28/2018 00:52:42 Reading Location: [address] Reading Room ACTIN (SMOOTH MUSCLE) ANTIBODY, [id number] 08:28:00 Test Item Value Reference Range Interpretation Comments SCAN RESULT (test code = 0585477) [id number] 08:27:00 Test Item Value Reference Range Interpretation Comments SCAN RESULT (test code = 8664032) NILS TITER AND [id number] 09:55:00 Test Item Value Reference Range Interpretation Comments NILS TITER (BEAKER) (test code = :160 1541) NILS PATTERN (BEAKER) (test code = Speckled 1781) ANTI-NUCLEAR ANTIBODY (NILS)2018-10-05 09:54:00 Test Item Value Reference Range Interpretation Comments ANTI-NUCLEAR ANTIBODY (NILS) (BEAKER) Positive Negative A (test code = 418) Test performed by IFA method.[id number] 10:54:00 Test Item Value Reference Range Interpretation Comments FERRITIN (BEAKER) (test code = 361) 218 ng/mL 5-275 HEPATITIS A ANTIBODY, [id number] 10:18:00 Test Item Value Reference Range Interpretation Comments HEPATITIS A IGG ANTIBODY (BEAKER) Reactive Nonreactive A (test code = 2797) ALPHA FETOPROTEIN (AFP), TUMOR [id number] 10:14:00 Test Item Value Reference Range Interpretation Comments ALPHA-FETOPROTEIN (BEAKER) (test 3.5 ng/mL <10.0 code = 1094) HEPATITIS A ANTIBODY, [id number] 10:14:00 Test Item Value Reference Range Interpretation Comments HEPATITIS A IGM ANTIBODY (BEAKER) Nonreactive Nonreactive (test code = 498) HEPATITIS B CORE ANTIBODY, [id number] 10:14:00 Test Item Value Reference Range Interpretation Comments HEPATITIS B CORE TOTAL ANTIBODY Nonreactive Nonreactive (BEAKER) (test code = 497) HEPATITIS B SURFACE [id number] 09:42:00 Test Item Value Reference Range Interpretation Comments HEPATITIS B SURFACE ANTIBODY < mIU/mL <8.0 (BEAKER) (test code = 647) HEPATITIS B SURFACE [id number] 09:36:00 Test Item Value Reference Range Interpretation [...] 41 % 20-55 (test code = 2590) [id number] 09:14:00 Test Item Value Reference Range Interpretation Comments ALPHA-1 ANTITRYPSIN (BEAKER) 159.30 mg/dL 90.00-200.00 (test code = 502) COMPREHENSIVE METABOLIC [id number] 09:10:00 Test Item Value Reference Range Interpretation [...] FOR DIALYSIS PATIEN TS. Specimen slightly ictericBILIRUBIN, [id number] 09:10:00 Test Item Value Reference Range Interpretation Comments BILIRUBIN DIRECT (BEAKER) (test 1.4 mg/dL 0.1-0.5 H code = 706) PROTHROMBIN [id number] 08:38:00 Test Item Value Reference Range Interpretation [...] % 0-1 PERCENT (BEAKER) (test code = 2801)"
[2021-06-21 09:24] LABS: Absolute Lymphocytes (CBC) 1.3 K/uL (0.7-4.9); Hematocrit 30.7 % (39.6-49.0); MPV 8.3 fL (7.6-11.3)
--- NOTE | 2021-06-21 09:28 | RAD REPORT ---
EXAM DESCRIPTION: CT - Ct Stroke Brain Wo Cont - 06/21/2021 9:18 am CLINICAL HISTORY: CONFUSED COMPARISON: Head Brain Wo Cont dated 03/29/2021; Head Brain Wo Cont dated 10/05/2020 TECHNIQUE: All CT scans are performed using dose optimization technique as appropriate and may inclu de automated exposure control or mA/KV adjustment according to patient size. FINDINGS: No intracranial hemorrhage or extra-axial fluid collection.No areas of brain edema or evid ence of midline shift. Re- demonstrated fat containing lesion in the basilar cisterns measuring 2 cm by 1.1 cm. Similar configuration of ventricular system with prominent lateral and third ventricle whi ch is mildly out of proportion to the degree of cerebral atrophy. Mucous retention cysts in the maxillary sinuses. The calvarium is intact. IMPRESSION: No acute intracranial abnormality.
[2021-06-21 09:29] LABS: Protime INR 1.25
--- NOTE | 2021-06-21 09:45 | RAD REPORT ---
EXAM DESCRIPTION: RAD - Chest Single View - 06/21/2021 9:31 am CLINICAL HISTORY: MALAISE COMPARISON: Chest Single View dated 05/10/2021; Chest Single View dated 03/29/2021; Chest Single View dated 10/05/2020; Chest Pa And Lat (2 Views) dated 09/21/2020 FINDINGS: Lines: None. Lungs: No evidence of edema or pneumonia. Pleural: No significant pleural effusions or pneumothorax. Cardiac: The heart size is within normal limits. Bones: No acute fractures. Other: IMPRESSION: No acute cardiopulmonary disease.
[2021-06-21 09:48] LABS: ALT/SGPT 32 U/L (12-78); AST/SGOT 35 U/L (15-37); Albumin 2.8 g/dL (3.4-5.0); Alkaline Phosphatase 155 U/L (45-117); BUN Blood Urea Nitrogen 6 mg/dL (7-18); Bicarbonate 22 mmol/L (21-32); Bilirubin Direct 0.6 mg/dL (0-0.2); Bilirubin Total 2.1 mg/dL (0.2-1.0); Glucose Level 204 mg/dL (74-106); Magnesium 2.1 mg/dL (1.8-2.4); NT PRO-BNP 82 pg/mL (<125); Potassium 4.3 mmol/L (3.5-5.1); Protein, Total 7.1 g/dL (6.4-8.2); Sodium Level 139 mmol/L (136-145)
[2021-06-21 10:07] LABS: Anisocytosis 1+; Blood Morphology Comment NOTED (NOT SEEN); Platelet Estimate DECR; White Blood Cell Scan OK (OK)
--- NOTE | 2021-06-21 12:00 | ER ---
Nurse's Notes [facility] Name: Tonny Vidal Age: 65 yrs Sex: Male : 1955 Arrival Date: 06/21/2021 Time: 08:28 Bed 11 Private MD: Diagnosis: Altered mental status, unspecified;Metabolic encephalopathy-Hepatic;Subsequent non-ST elevation (NSTEMI) myocardial infarction Presentation: 06/21 08:43 Chief complaint: Patient states: "I feel weak all over. I feel very dizzy and am jd3 getting confused easily. this has been going on for a month.". Coronavirus screen: At this time, the client does not indicate any symptoms associated with coronavirus-19. Ebola Screen: No symptoms or risks identified at this time. Initial Sepsis Screen: Does the patient meet any 2 criteria? No. Patient's initial sepsis screen is negative. Does the patient have a suspected source of infection? No. Patient's initial sepsis screen is negative. Risk Assessment: Do you want to hurt yourself or someone else? Patient reports no desire to harm self or others. Onset of symptoms was June 21, 2021. 08:43 Method Of Arrival: Wheelchair jd3 08:43 Acuity: FAIZA 3 jd3 Triage Assessment: 08:57 General: Appears in no apparent distress. uncomfortable, unkempt, Behavior is calm, jd3 cooperative, flat. Pain: Denies pain. 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 Full function Speech is normal, Facial symmetry appears normal, Reports general weakness X 1 month. dizziness that started when waking up today.. Cardiovascular: Capillary refill < 3 seconds Patient's skin is warm and dry. Rhythm is irregular. Respiratory: Airway is patent Respiratory effort is even, unlabored, Respiratory pattern is regular, symmetrical. Historical: - Allergies: 09:12 Ativan; jh5 - PMHx: 08:44 ADD/ADHD; Cirrhosis; Diabetes - NIDDM; Hypertension; psoriasis; jd3 - Immunization history:: Adult Immunizations up to date, Client reports receiving the 2nd dose of the Covid vaccine. - Social history:: Smoking status: Patient/guardian denies using tobacco, the patient reports quitting approximately 3 years ago. Screenin:12 Abuse screen: Denies threats or abuse. Denies injuries from another. Nutritional jh5 screening: No deficits noted. Tuberculosis screening: No symptoms or risk factors identified. Fall Risk None identified. Vital Signs: 08:44 BP 138 / 101; Pulse 82; Resp 18 S; Temp 98.1(TE); Pulse Ox 100% on R/A; Weight 104.33 jd3 kg (R); Height 5 ft. 6 in. (167.64 cm) (R); Pain 0/10; 08:44 Body Mass Index 37.12 (104.33 kg, 167.64 cm) jd3 ED Course: 08:28 Patient arrived in ED. ds1 08:44 Triage completed. jd3 08:45 Arm band placed on. jd3 08:58 EKG completed in triage. Results shown to MD. jd3 09:07 Anne-Marie Allen, RN is Primary Nurse. jh5 09:08 Emanuel Bedolla MD is Attending Physician. kdr 09:11 Inserted saline lock: 22 gauge in left antecubital area, using aseptic technique. mb7 09:12 Patient has correct armband on for positive identification. jh5 09:12 No provider procedures requiring assistance completed. jh5 09:18 CT Stroke Brain w/o Contrast In Process Unspecified. EDMS 09:26 Diet: Patient is NPO. mh5 09:31 XRAY Chest (1 view) In Process Unspecified. EDMS 11:58 Ishan Finnegan MD is Hospitalizing Provider. kdr 13:19 Bebeto Harley MD is Hospitalizing Provider. kdr Administered Medications: No medications were administered Outcome: 12:00 Decision to Hospitalize by Provider. kdr 16:57 Patient left the ED. 5 Signatures: Dispatcher [employer] EDMS Emanuel Bedolla MD MD kdr Neela Irizarry dsMakayla Bermudez 5 Neto Baca RN RN Anne-Marie Concepcion RN RN Marta Koch mb7 Corrections: (The following items were deleted from the chart) 09:13 08:44 Allergies: Ativan; jd3 5
--- NOTE | 2021-06-21 12:01 | EDPHYS ---
Physician Documentation [facility] Name: Tonny Vidal Age: 65 yrs Sex: Male : 1955 Arrival Date: 06/21/2021 Time: 08:28 Bed 11 Private MD: ED Physician Emanuel Bedolla HPI: 06/21 13:21 This 65 yrs old Male presents to ER via Wheelchair with complaints of kdr Confusion. 13:21 EMS was called because the patient was becoming increasingly weak and dizzy and kdr disoriented. According to family and the patient, this is been worsening over the last month. She had similar episodes before when his ammonia level was elevated. He has a history of liver disease and hepatic encephalopathy. He otherwise appears to be near baseline but slow to respond and sluggish and slightly altered. Onset: The symptoms/episode began/occurred gradually, 1 month(s) ago. Severity of symptoms: At their worst the symptoms were mild in the emergency department the symptoms are unchanged. The patient has experienced similar episodes in the past, multiple times. The patient has not recently seen a physician. Historical: - Allergies: 09:12 Ativan; jh5 - PMHx: 08:44 ADD/ADHD; Cirrhosis; Diabetes - NIDDM; Hypertension; psoriasis; jd3 - Immunization history:: Adult Immunizations up to date, Client reports receiving the 2nd dose of the Covid vaccine. - Social history:: Smoking status: Patient/guardian denies using tobacco, the patient reports quitting approximately 3 years ago. ROS: 13:21 Constitutional: Negative for fever, chills, and weight loss, Eyes: Negative for injury, kdr pain, redness, and discharge, ENT: Negative for injury, pain, and discharge, Neck: Negative for injury, pain, and swelling, Cardiovascular: Negative for chest pain, palpitations, and edema, Respiratory: Negative for shortness of breath, cough, wheezing, and pleuritic chest pain, Abdomen/GI: Negative for abdominal pain, nausea, vomiting, diarrhea, and constipation, Back: Negative for injury and pain, : Negative for injury, bleeding, discharge, and swelling, MS/Extremity: Negative for injury and deformity, Skin: Negative for injury, rash, and discoloration, Psych: Negative for depression, anxiety, suicide ideation, homicidal ideation, and hallucinations, Allergy/Immunology: Negative for hives, rash, and allergies, Endocrine: Negative for neck swelling, polydipsia, polyuria, polyphagia, and marked weight changes, Hematologic/Lymphatic: Negative for swollen nodes, abnormal bleeding, and unusual bruising. 13:21 Neuro: Positive for weakness, Mildly disoriented. Exam: 11:07 ECG was reviewed by the Attending Physician. kdr 13:21 Constitutional: This is a well developed, well nourished patient who is awake, alert, kdr and in no acute distress. Head/Face: Normocephalic, atraumatic. Eyes: Pupils equal round and reactive to light, extra-ocular motions intact. Lids and lashes normal. Conjunctiva and sclera are non-icteric and not injected. Cornea within normal limits. Periorbital areas with no swelling, redness, or edema. Neck: Trachea midline, no thyromegaly or masses palpated, and no cervical lymphadenopathy. Supple, full range of motion without nuchal rigidity, or vertebral point tenderness. No Meningismus. Chest/axilla: Normal chest wall appearance and motion. Nontender with no deformity. No lesions are appreciated. Cardiovascular: Regular rate and rhythm with a normal S1 and S2. No gallops, murmurs, or rubs. Normal PMI, no JVD. No pulse deficits. Respiratory: Lungs have equal breath sounds bilaterally, clear to auscultation and percussion. No rales, rhonchi or wheezes noted. No increased work of breathing, no retractions or nasal flaring. Abdomen/GI: Soft, non-tender, with normal bowel sounds. No distension or tympany. No guarding or rebound. No evidence of tenderness throughout. Back: No spinal tenderness. No costovertebral tenderness. Full range of motion. Skin: Warm, dry with normal turgor. Normal color with no rashes, no lesions, and no evidence of cellulitis. MS/ Extremity: Pulses equal, no cyanosis. Neurovascular intact. Full, normal range of motion. His skin shows evidence of chronic renal disease and liver dysfunction with poor skin turgor and poor overall conditioning of his skin Psych: Awake, alert, with orientation to person, place and time. Behavior, mood, and affect are within normal limits. 13:21 Neuro: Orientation: appropriate for stated age, Mentation: lucid, able to follow commands, slow to respond, confused, sleepy, somnolent, Memory: no acute changes, Cranial nerves: no acute changes, Cerebellar function: Slow, Motor: moves all fours, Sensation: no acute changes. Vital Signs: 08:44 BP 138 / 101; Pulse 82; Resp 18 S; Temp 98.1(TE); Pulse Ox 100% on R/A; Weight 104.33 jd3 kg (R); Height 5 ft. 6 in. (167.64 cm) (R); Pain 0/10; 08:44 Body Mass Index 37.12 (104.33 kg, 167.64 cm) jd3 MDM: 11:04 Data reviewed: vital signs, nurses notes, lab test result(s), radiologic studies. kdr Counseling: I had a detailed discussion with the patient and/or guardian regarding: the historical points, exam findings, and any diagnostic results supporting the discharge/admit diagnosis, lab results, radiology results. ED course: Patient's laboratory data overall has returned and the only item of specific relevance appears to be an elevated troponin. With the new troponin assays, the reference ranges have changed. As a consequence, it is unknown at this time the relative value of these tests in comparison. I have contacted the lab to investigate these discordant findings. 12:00 Patient medically screened. kdr 12:00 ED course: Given my discussion with Dr. Bustamante, the patient continues to have elevated kdr troponins. Given the change in assays for troponin, will admit the patient for rule out as well as cardiac stress test in the morning. Patient had no time had a complaint of chest pain. The EKG had nonspecific changes on it. Given the constellation of lab findings, lack of EKG findings and lack of complaints of chest pain, no further treatment was given in the ED. 06/21 08:47 Order name: Basic Metabolic Panel; Complete Time: 10:48 jd3 06/21 08:47 Order name: CBC with Diff; Complete Time: jd3 06/21 08:47 Order name: LFT's; Complete Time: 10: jd3 06/21 08:47 Order name: Magnesium; Complete Time: 10:48 jd3 06/21 08:47 Order name: NT PRO-BNP; Complete Time: 10:48 jd3 06/21 08:47 Order name: PT-INR; Complete Time: 09:35 jd3 06/21 08:47 Order name: Troponin HS; Complete Time: 10:48 jd3 06/21 09:11 Order name: Ptt, Activated; Complete Time: 10:48 kdr 06/21 09:35 Order name: AMMONIA; Complete Time: 10:48 kdr 06/21 09:39 Order name: Glucose, Ancillary Testing; Complete Time: 10:48 EDMS 06/21 10:07 Order name: CBC Smear Scan; Complete Time: 10:48 EDMS 06/21 11:52 Order name: SARS-COV-2 RT PCR (Document "Date of Onset" if Symptomatic) 06/21 13:02 Order name: Comprehensive Metabolic Panel EDPA 06/21 13:02 Order name: Comprehensive Metabolic Panel EDPA 06/21 08:47 Order name: XRAY Chest (1 view); Complete Time: 10:48 d3 06/21 08:47 Order name: EKG; Complete Time: 08:48 [facility] 06/21 09:11 Order name: CT Stroke Brain w/o Contrast; Complete Time: 09:35 kdr 06/21 13:02 Order name: CONS Physician Consult EDMS 06/21 13:02 Order name: Full Liquid EDMS 06/21 13:02 Order name: Protime (+INR) EDMS 06/21 13:02 Order name: Protime (+INR) EDMS 06/21 13:02 Order name: PTT, Activated Partial Thromb EDMS 06/21 13:02 Order name: PTT, Activated Partial Thromb EDMS 06/21 13:03 Order name: CBC with Automated Diff EDMS 06/21 13:03 Order name: CBC with Automated Diff EDMS 06/21 13:04 Order name: Echo with Doppler EDMS 06/21 13:04 Order name: Echo with Doppler EDMS 06/21 15:24 Order name: Ammonia EDMS 06/21 15:51 Order name: Troponin High Sensitivity EDMS 06/21 08:47 Order name: Cardiac monitoring; Complete Time: 09:07 jd3 06/21 08:47 Order name: EKG - Nurse/Tech; Complete Time: 09:01 jd3 06/21 08:47 Order name: IV Saline Lock; Complete Time: 09:22 d3 06/21 08:47 Order name: Labs collected and sent; Complete Time: 09:22 d3 06/21 08:47 Order name: O2 Per Protocol; Complete Time: 09:01 jd3 06/21 08:47 Order name: O2 Sat Monitoring; Complete Time: 09: jd3 06/21 09:11 Order name: Accucheck; Complete Time: :26 kdr 06/21 09:11 Order name: NPO; Complete Time: 09:14 kdr 06/21 09:11 Order name: Stroke Swallow Screen; Complete Time: : kdr EC:07 Rate is 75 beats/min. Rhythm is regular, Sinus Rhythm with No ectopy. QRS Independence is kdr Normal. VT interval is normal. QRS interval is normal. QT interval is normal. Clinical impression: NSR w/ Non-specific ST/T Changes. Administered Medications: No medications were administered Disposition Summary: 06/21/21 12:00 Hospitalization Ordered Hospitalization Status: Observation kdr Location: Telemetry/MedSurg (observation) kdr Condition: Fair kdr Problem: new kdr Symptoms: have improved kdr Bed/Room Type: Standard kdr Provider: Bebeto Harley(06/21/21 13:20) kdr Room Assignment: Pending sale to [facility](06/21/21 16:34) bd Diagnosis - Altered mental status, unspecified kdr - Metabolic encephalopathy - Hepatic kdr - Subsequent non-ST elevation (NSTEMI) myocardial infarction kdr Forms: - Medication Reconciliation Form kdr - SBAR form kdr Signatures: Dispatcher [employer] EDMS Nette Self Kevin, MD MD kdr Davies, Jonathon, RN RN Anne-Marie Dominique RN RN jh5 Corrections: (The following items were deleted from the chart) 09:13 08:44 Allergies: Ativan; terrell crespo 09:17 08:48 Head Brain Wo Cont+CT.RAD.BRZ ordered. EDMS EDMS 13:20 12:00 Ishan Finnegan kdr kdr 16:34 12:00 kdr bd
--- NOTE | 2021-06-21 12:51 | CON ---
Date of Consultation: 06/21/2021 Reason For Consultation: Elevated troponin. History Of Present Illness: This is a 65-year-old male with history of liver cirrhosis, diabetes, hy pertension, psoriasis, presented with some altered mental status. Troponin was checked and it was sl ightly elevated. Denies having any chest pain or shortness of breath. The patient has history of di abetes that is not controlled. Past Medical History: As outlined above in the HPI. Medications: Refer to reconciliation sheet for detailed list. Allergies: TO LORAZEPAM. Family History: No premature coronary artery disease or cancer. Social History: Does not smoke or drink. Does not use any drugs. Review of Systems: All systems reviewed and they were negative except as mentioned in the HPI. Physical Examination: Vital Signs: Reviewed. Head and Neck: Pupils are equal, reactive to light. Intact eye movements. No JVD. No cervical lym phadenopathy. Neck is supple. Thyroid is not enlarged. Lungs: Clear to auscultation bilaterally. No rhonchi, rales, or crackles. No accessory muscle use. Heart: Regular rate and rhythm. No extra sounds. Abdomen: Soft, nontender. Bowel sounds positive. No organomegaly. No masses or hernia. No rigidi ty or rebound. Extremities: No edema, clubbing, cyanosis. Intact pulses. Skin: No rashes. Neuro: Alert, awake. No acute focal deficits appreciated. Investigations: Hemoglobin 9.7. His troponin is 165. Creatinine 0.82. Assessment And Recommendations: Elevated troponin. No symptoms. Has multiple risk factors includin g diabetes, liver cirrhosis. Recommend observation with serial sets of cardiac enzymes and please ob tain an exercise nuclear stress test to further evaluate and further decision will be made based on t he stress test results. Start him on baby aspirin and trend at least 2 more sets of troponin and obt ain echocardiogram. Thank you for the consult. SR/MODL Voice ID: [id number] Report ID: [id number]
[2021-06-21] MEDS ORDERED: ACETAMINOPHEN 500 MG TAB PO PRN (12:58)
[2021-06-21] MEDS ORDERED: MORPHINE 2 MG/ML SYR IV PRN (12:58)
[2021-06-21] MEDS ORDERED: ONDANSETRON 4 MG/2 ML VIAL IV PRN (12:58)
[2021-06-21] MEDS: NA CHLORIDE 0.9% 1,000 ML IV SCH (13:00)
[2021-06-21] MEDS ORDERED: LACTULOSE 20 GM/30 ML UCUP PO SCH (13:00)
--- NOTE | 2021-06-21 14:39 | P.HP ---
Certification for Inpatient Patient admitted to: Inpatient With expected LOS: >2 Midnights Patient will require the following post-hospital care: None Practitioner: I am a practitioner with admitting privileges, knowledge of patient current condition, hospital course, and medical plan of care. Services: Services provided to patient in accordance with Admission requirements found in Title 42 Section 412.3 of the Code of Federal Regulations Patient History Date of Service: 06/21/21 Primary Care Provider: Sumeet Alcantar Reason for admission: elevated torponins History of Present Illness: Patient is office patient of ours. History of diabetes and liver failure. He ran out of his lactulose this past . The patient would get confused. He would go to the pharmacy and forget to get his meds. Per his ex girlfriend and neighbor. The patient was getting weaker. Came to the ER. Was found to have an elevated ammonia level and troponin. Allergies lorazepam [From Ativan] Allergy (Severe, Verified 04/07/21 08:16) Shortness of breath Home medications list reviewed: Yes Home Medications: Carvedilol [Coreg] 6.25 mg PO BIDWM 01/11/20 Folic Acid 1 mg PO DAILY 01/11/20 Pantoprazole [Protonix Tab*] 40 mg PO DAILY 01/11/20 Spironolactone 100 mg PO BID 01/11/20 Furosemide [Lasix*] 40 mg PO BID 09/18/20 Insulin -Regular Human [Novolin -R*] See Protocol SQ ACHS 09/18/20 Insulin Glargine,Hum.rec.anlog [Ivonne Solostar] 50 unit SQ DAILY 09/18/20 Rifaximin [Xifaxan] 550 mg PO BID 09/18/20 Trazodone [Desyrel*] 50 mg PO BEDTIME 09/18/20 Lactulose [Cephulac*] 30 ml PO TID #1 l 10/06/20 Metoprolol Tartrate [Lopressor*] 25 mg PO BID 6AM 6PM #60 tab 03/30/21 - Past Medical/Surgical History Diabetic: Yes -: DM II -: HTN -: CHF -: Liver cirrhosis, -: Hyperlipidemia -: Obesity -: GERD -: Gastric varices -: H pylori gastritis -: Hernia repair Psychosocial/ Personal History: Patient has significant other. - Family History Father -: Diabetes Mother -: Liver disease - Social History Alcohol use: No CD- Drugs: No Caffeine use: Yes Review of Systems 10-point ROS is otherwise unremarkable General: Weakness Neurological: Confusion Physical Examination - Physical Exam General: Alert, In no apparent distress HEENT: Atraumatic, PERRLA, Mucous membr. moist/pink, EOMI, Sclerae nonicteric Neck: Supple, 2+ carotid pulse no bruit, No LAD, Without JVD or thyroid abnormality Respiratory: Clear to auscultation bilaterally, Normal air movement Cardiovascular: Regular rate/rhythm, Normal S1 S2 Gastrointestinal: Normal bowel sounds, No tenderness Musculoskeletal: No tenderness Integumentary: No rashes Neurological: Normal gait, Normal speech, Normal strength at 5/5 x4 extr, Normal tone, Normal affect Lymphatics: No axilla or inguinal lymphadenopathy - Studies Laboratory Data (last 24 hrs) 06/21/21 09:10: APTT 32.2 06/21/21 09:10: PT 14.4 H, INR 1.25 06/21/21 09:10: WBC 4.70, Hgb 9.7 L, Hct 30.7 L, Plt Count 96 L 06/21/21 09:10: Sodium 139, Potassium 4.3, BUN 6 L, Creatinine 0.82, Glucose 204 H, Magnesium 2.1, Total Bilirubin 2.1 H, AST 35, ALT 32, Alkaline Phosphatase 155 H Assessment and Plan - Problems (Diagnosis) (1) Elevated troponin Current Visit: No Status: Acute Plan: Patient being seen by Dr. Wright. Possible angiogram in the am. Will follow serial troponins. (2) Hepatic encephalopathy Current Visit: No Status: Acute Plan: restart the patient on xifaxin and lactulose. Will continue serial tropnins. (3) Diabetes mellitus Onset Date: 05/24/18 Current Visit: No Status: Chronic Plan: Will start a low dose sliding scale. Qualifiers: Diabetes mellitus type: type 2 Diabetes mellitus placement assistant insulin use: with assisted use (4) HTN (hypertension) Onset Date: 05/24/18 Current Visit: No Status: Chronic Plan: restart home medications and adjust as necessary. Qualifiers: Hypertension type: primary hypertension Qualified Code(s): I10 - Essential (primary) hypertension Discharge Plan: Home Plan to discharge in: Greater than 2 days - Advance Directives Does patient have a Living Will: No Does patient have a Durable POA for Healthcare: No - Code Status/Comfort Care Code Status Assessed: No Code Status: Full Code Physician Review: Patient Assessed, Agree with Above Assessment and Plan Critical Care: No Time Spent Managing Pts Care (In Minutes): 50
[2021-06-21] MEDS ORDERED: NA CHLORIDE 0.9% 1,000 ML ONE (14:56)
[2021-06-21] MEDS ORDERED: LACTULOSE 20 GM/30 ML UCUP ONE (14:57)
[2021-06-21] MEDS ORDERED: GLUCAGON 1 MG/VIAL IM PRN (15:12)
[2021-06-21] MEDS ORDERED: D50W 25 GM/50 ML SYRINGE IV PRN (15:12)
[2021-06-21 16:09] VITALS: BMI 35.5
[2021-06-21] MEDS: INSULIN -REGULAR HUMAN 50 UNIT/0.5 ML ML SQ SCH ×2 (16:30→20:59)
[2021-06-21] MEDS ORDERED: INFLUENZA VACCINE (for 6+ mo) 0.5 ML DOSE IMVAC ONE (18:00)
[2021-06-21] MEDS ORDERED: METOPROLOL TAR 25 MG TAB PO SCH (18:00)
[2021-06-21] MEDS ORDERED: PNEUMOCOCCAL VACCINE 0.5 ML IMVAC ONE (18:00)
[2021-06-21] MEDS: METOPROLOL TAR 25 MG TAB PO SCH (18:35)
[2021-06-21] MEDS: TRAZODONE 50 MG TABLET PO SCH (20:19)
[2021-06-21] MEDS: LACTULOSE 20 GM/30 ML UCUP PO SCH (20:19)
[2021-06-21] MEDS: SPIRONOLACTONE 100 MG TAB PO SCH (20:58)
[2021-06-21] MEDS ORDERED: Rifaximin 550 MG Tab PO SCH (21:00)
[2021-06-21] MEDS: Rifaximin 550 MG Tab PO SCH (21:00)
[2021-06-22 00:27] VITALS: O2SAT 100
[2021-06-22] MEDS: METOPROLOL TAR 25 MG TAB PO SCH ×2 (05:07→17:09)
[2021-06-22 05:34] LABS: Absolute Lymphocytes (CBC) 1.5 K/uL (0.7-4.9); Hematocrit 26.2 % (39.6-49.0); Lymphocytes % 37.4 % (15.3-44.8); MPV 8.7 fL (7.6-11.3); RBC Red Blood Cell Count 3.51 M/uL (4.33-5.43)
[2021-06-22 05:48] LABS: ALT/SGPT 27 U/L (12-78); AST/SGOT 31 U/L (15-37); Albumin 2.2 g/dL (3.4-5.0); Alkaline Phosphatase 113 U/L (45-117); BUN Blood Urea Nitrogen 8 mg/dL (7-18); Bicarbonate 21 mmol/L (21-32); Bilirubin Total 1.8 mg/dL (0.2-1.0); Glucose Level 105 mg/dL (74-106); Potassium 3.9 mmol/L (3.5-5.1); Sodium Level 141 mmol/L (136-145)
[2021-06-22 05:51] LABS: Protime INR 1.32
[2021-06-22] MEDS: INSULIN -REGULAR HUMAN 50 UNIT/0.5 ML ML SQ SCH ×4 (07:30→21:00)
--- NOTE | 2021-06-22 08:26 | EKG ---
Test Date: 2021-06-21 Test Time: 08:56:26 Vp Global: KATE MEASUREMENT RESULTS: Intervals: Rate: 75 CT: 160 QRSD: 80 QT: 426 QTc: 475 [place]: P: 35 CT: 160 QRS: -46 T: 16 INTERPRETIVE STATEMENTS: Normal sinus rhythm Left anterior fascicular block Possible Anterolateral infarct, age undetermined Abnormal ECG Compared to ECG 05/10/2021 10:59:50 Left anterior fascicular block now present Myocardial infarct finding now present Sinus bradycardia no longer present Atrial premature complex(es) no longer present Left-axis deviation no longer present Electronically Signed On 06-22-21 08:22:38 SALT GRINDER by Nemesio Rachel
[2021-06-22] MEDS ORDERED: REGADENOSON 0.4 MG/5 ML SYR IV ONE (09:00)
[2021-06-22] MEDS ORDERED: HOME MED 1 EA UNK (Insulin Glargine,Hum.Rec.Anlog [Toujeo Solostar] 300 UNIT/ML Insuln.Pen SQ SCH (09:00)
[2021-06-22] MEDS ORDERED: INSULIN GLARGINE 100 UNIT/ML SQ SCH (09:00)
[2021-06-22] MEDS: Rifaximin 550 MG Tab PO SCH ×2 (09:00→21:00)
--- NOTE | 2021-06-22 10:02 | P.PN ---
Subjective Date of Service: 06/22/21 Primary Care Provider: Sumeet Alcantar Chief Complaint: elevated torponins Subjective: No new changes Review of Systems 10-point ROS is otherwise unremarkable Physical Examination - Vital Signs Temperature: 97.9 F Blood Pressure: 113/59 Pulse: 58 Respirations: 18 Pulse Ox (%): 97 - Physical Exam General: Alert, In no apparent distress HEENT: Atraumatic, PERRLA, EOMI Neck: Supple, JVD not distended Respiratory: Clear to auscultation bilaterally, Normal air movement Cardiovascular: Regular rate/rhythm, Normal S1 S2 Gastrointestinal: Normal bowel sounds, No tenderness Musculoskeletal: No tenderness Integumentary: No rashes Neurological: Normal speech, Normal tone, Normal affect Lymphatics: No axilla or inguinal lymphadenopathy - Studies Laboratory Data (last 24 hrs) 06/21/21 09:10: WBC 4.70, Hgb 9.7 L, Hct 30.7 L, Plt Count 96 L Assessment & Plan - Problems (Diagnosis) (1) Elevated troponin Current Visit: No Status: Acute Plan: Patient being seen by Dr. Wright. Possible angiogram in the am. Will follow serial troponins. 06/22 Possible stress test today (2) Hepatic encephalopathy Current Visit: No Status: Acute Plan: restart the patient on xifaxin and lactulose. Will continue serial tropnins. 06/22 patient is cooperative. Will continue his meds and follow his ammonia level (3) Diabetes mellitus Onset Date: 05/24/18 Current Visit: No Status: Chronic Plan: Will start a low dose sliding scale. Qualifiers: Diabetes mellitus type: type 2 Diabetes mellitus [facility] insulin use: with intermediate project manager use (4) HTN (hypertension) Onset Date: 05/24/18 Current Visit: No Status: Chronic Plan: restart home medications and adjust as necessary. Qualifiers: Hypertension type: primary hypertension Qualified Code(s): I10 - Essential (primary) hypertension Discharge Plan: Home Plan to discharge in: 24 Hours - Code Status/Comfort Care Code Status Assessed: No Physician Review: Patient Assessed, Agree with Above Assessment and Plan Critical Care: No Time Spent Managing Pts Care (In Minutes): 20
--- NOTE | 2021-06-22 11:03 | PN ---
The patient was admitted with elevated troponin to Dr. Harley's service. He was seen by Dr. Adriana rebollar. The patient's elevated troponin came with no symptoms, but he does have multiple risk facto rs including diabetes, liver cirrhosis. A Lexiscan is pending for today. Today, his vital signs are stable with blood pressure 113/59. He is in sinus rhythm. He is anemic with a hemoglobin of 8.3. Last troponin was 148. His BNP was normal. We will await the results of the Lexiscan before making further decisions. No change in medical therapy for now. NB/MODL Voice ID: [id number] Report ID: [id number]
[2021-06-22] MEDS: ASPIRIN EC 81 MG TAB PO SCH (11:58)
[2021-06-22] MEDS: SPIRONOLACTONE 100 MG TAB PO SCH ×2 (11:58→21:00)
[2021-06-22] MEDS: LACTULOSE 20 GM/30 ML UCUP PO SCH ×3 (11:58→21:00)
[2021-06-22] MEDS: PANTOPRAZOLE 40MG TABLET PO SCH (11:58)
--- NOTE | 2021-06-22 11:59 | RAD REPORT ---
EXAM DESCRIPTION: NM - Rest Stress Cardiac Imaging - 06/22/2021 11:46 am CLINICAL HISTORY: Chest pain COMPARISON: Nuclear medicine stress study July 2018 TECHNIQUE: The patient was administered 10.8 mCi of Tc 99m Sestamibi prior to resting SPECT imaging of the heart. The patient was then administered 30.8 mCi of Tc 99m Sestamibi following exercise or ph armacologic stress. Multiplanar SPECT images were reviewed. FINDINGS: The end diastolic volume is 123 ml, the end systolic volume is 47 ml, and the ejection fra ction is 62 %. Ventricular volumes and ejection fraction are very similar to the 2019 study. Physiologic distribution of the radiopharmaceutical through the myocardium is noted. No stress induce d ischemic defect is seen to suggest stress induced ischemia. No fixed defect is seen to suggest hibe rnating myocardium or scarred myocardium. IMPRESSION: No stress induced ischemia or other suspicious findings. End-diastolic volume is enlarged at 123 mL. Ejection fraction is well within normal limits. Ventricul ar volumes and ejection fraction are very similar to the 2019 study. The
[2021-06-22] MEDS: TRAZODONE 50 MG TABLET PO SCH (21:59)
[2021-06-22] MEDS: NA CHLORIDE 0.9% 1,000 ML IV SCH (22:20)
[2021-06-23] MEDS: METOPROLOL TAR 25 MG TAB PO SCH (06:19)
[2021-06-23 08:02] VITALS: BP 98/52; TEMP 97.6
--- NOTE | 2021-06-23 08:20 | TREADPHA ---
DX: CHEST PAIN Date of Study: 06/22/2021 Ht: 5' 6 " Wt: 220 lb 0 oz Consulting Physician: BRIDGER MEDICATIONS: ASPIRIN, NOVOLIN-R, LOPRESSOR HISTORY: 65 YEAR OLD WITH CIRRHOSIS, DIABETES MELLITUS, HYPERTENSION AND CHEST PAIN. PHYSICIAL EXAMINATION: RESTING B.P.: 92/33 RESTING H.R.: 57 RESTING EKG: SINUS BRADYCARDIA, NON-SPECIFIC ST PROTOCOL: PHARMACOLOGIC EXERCISE TIME: 3:30 B.P. AT [facility] STRESS: 85/64 IMPRESSION: LEXISCAN INJECTED. CARDIOLITE INJECTED (SEE NUCLEAR MEDICINE REPORT). NO VENTRICULAR TACHYCARDIA/ SUPARVENTRICULAR TACHYCARDIA. NO ARRHYTHMIAS NOTED. NO COMPLAINTS OF CHESTA PAIN OR SHORTNESS OF BREATH.
--- NOTE | 2021-06-23 08:49 | ECHO ---
HEIGHT: 5 ft 6 in WEIGHT: 220 lb 0 oz DATE OF STUDY: 06/22/[address]: Ishan Finnegan MD 2-DIMENSIONAL: YES M.MODE: YES DOPPLER: YES COLOR FLOW: YES TDS: PORTABLE: DEFINITY: BUBBLE STUDY: DIAGNOSIS: CHEST PAIN, RULE OUT ACUTE CORNARY SYNDROME CARDIAC HISTORY: CATHERIZATION: NO SURGERY: NO PROSTHETIC VALVE: NO PACEMAKER: NO MEASUREMENTS (cm) DIASTOLIC (NORMALS) SYSTOLIC (NORMALS) IVSd 1.0 (0.6-1.2) LA Diam 2.6 (1.9-4.0) LVEF 78% LVIDd 5.3 (3.5-5.7) LVIDs 2.8 (2.0-3.5) %FS 47% LVPWd 1.0 (0.6-1.2) Ao Diam 3.3 (2.0-3.7) 2 DIMENSIONAL ASSESSMENT: RIGHT ATRIUM: NORMAL LEFT ATRIUM: NORMAL RIGHT VENTRICLE: NORMAL LEFT VENTRICLE: NORMAL TRICUSPID VALVE: NORMAL MITRAL VALVE: MITRAL ANNULAR CALCIFICATION PULMONIC VALVE: NORMAL AORTIC VALVE: SCLEROSIS PERICARDIAL EFFUSION: NONE AORTIC ROOT: NORMAL LEFT VENTRICULAR WALL MOTION: NORMAL DOPPLER/COLOR FLOW: NORMAL COMMENTS: MITRAL ANNULAR CALCIFICATION. AORTIC SCLEROSIS. NORMAL LEFT VENTRICULAR SIZE AND FUNCTION. TECHNOLOGIST: LILY FERGUSON
--- NOTE | 2021-06-23 08:54 | P.DS ---
Admission Date: 06/21/21 Discharge Date: 06/23/21 Primary Care Provider: Sumeet Alcantar Disposition: ROUTINE DISCHARGE Discharge Condition: GOOD Reason for Admission: elevated torponins - Problems (1) Elevated troponin Current Visit: No Status: Acute (2) Hepatic encephalopathy Current Visit: No Status: Acute (3) Diabetes mellitus Onset Date: 05/24/18 Current Visit: No Status: Chronic Qualifiers: Diabetes mellitus type: type 2 Diabetes mellitus [facility] insulin use: with [facility] use (4) HTN (hypertension) Onset Date: 05/24/18 Current Visit: No Status: Chronic Qualifiers: Hypertension type: primary hypertension Qualified Code(s): I10 - Essential (primary) hypertension Brief History of Present Illness: Patient is office patient of ours. History of diabetes and liver failure. He ran out of his lactulose this past . The patient would get confused. He would go to the pharmacy and forget to get his meds. Per his ex girlfriend and neighbor. The patient was getting weaker. Came to the ER. Was found to have an elevated ammonia level and troponin. Hospital Course: Patience was admitted for some confusion. He had been out of his lactulose for 3 days. As well as his xifaxamin. The patient had a elevated troponin He had a normal echo and stress test. Will send him home and have the patient follow up in the office. Vital Signs/Physical Exam: Temp Pulse Resp BP Pulse Ox 97.6 F 56 18 98/52 L 98 06/23/21 08:00 06/23/21 08:00 06/23/21 08:00 06/23/21 08:00 06/23/21 08:00 General: Alert, In no apparent distress HEENT: Atraumatic, PERRLA, EOMI Neck: Supple, JVD not distended Respiratory: Clear to auscultation bilaterally, Normal air movement Cardiovascular: Regular rate/rhythm, Normal S1 S2 Gastrointestinal: Normal bowel sounds, No tenderness Musculoskeletal: No tenderness Integumentary: No rashes Neurological: Normal speech, Normal tone, Normal affect Lymphatics: No axilla or inguinal lymphadenopathy Laboratory Data at Discharge: WBC 3.90 K/uL (4.3-10.9) L D 06/22/21 04:53 Hgb 8.3 g/dL (13.6-17.9) L 06/22/21 04:53 Hct 26.2 % (39.6-49.0) L 06/22/21 04:53 Plt Count 71 K/uL (152-406) L D 06/22/21 04:53 PT 15.2 SECONDS (9.5-12.5) H 06/22/21 04:53 INR 1.32 06/22/21 04:53 APTT 32.4 SECONDS (24.3-36.9) 06/22/21 04:53 Sodium 141 mmol/L (136-145) 06/22/21 04:53 Potassium 3.9 mmol/L (3.5-5.1) 06/22/21 04:53 BUN 8 mg/dL (7-18) 06/22/21 04:53 Creatinine 0.64 mg/dL (0.55-1.3) 06/22/21 04:53 Glucose 105 mg/dL (74-106) 06/22/21 04:53 Magnesium 2.1 mg/dL (1.8-2.4) 06/21/21 09:10 Total Bilirubin 1.8 mg/dL (0.2-1.0) H 06/22/21 04:53 AST 31 U/L (15-37) 06/22/21 04:53 ALT 27 U/L (12-78) 06/22/21 04:53 Alkaline Phosphatase 113 U/L (45-117) 06/22/21 04:53 Home Medications: Carvedilol [Coreg] 3.125 mg PO BIDWM 01/11/20 Folic Acid 1 mg PO DAILY 01/11/20 Pantoprazole [Protonix Tab*] 40 mg PO DAILY 01/11/20 Spironolactone 25 mg PO BID 01/11/20 Furosemide [Lasix*] 40 mg PO DAILY 09/18/20 Insulin -Regular Human [Novolin -R*] See Protocol SQ ACHS 09/18/20 Insulin Glargine,Hum.rec.anlog [Ivonne Solchristaar] 50 unit SQ DAILY 09/18/20 Rifaximin [Xifaxan] 550 mg PO BID 09/18/20 Trazodone [Desyrel*] 50 mg PO BEDTIME 09/18/20 Fluticasone Propionate [Flovent Diskus] 50 mcg BONNY DAILY 06/21/21 Insulin Glargine,Hum.rec.anlog [Toujeo Solostar] 30 units SQ DAILY 06/21/21 Lisinopril [Zestril] 20 mg PO DAILY 06/21/21 Metformin ER [Glucophage ER*] 500 mg PO BID 06/21/21 hydrOXYzine HCL [Atarax] 50 mg PO BID 06/21/21 Diet: low protei Activity: Ad jasmin Followup: Belén Alcantar FNP BC [Primary Care Provider] - Physician Review: Patient Assessed, Agree with Above Assessment and Plan Time spent managing pt's care (in minutes): 30
[2021-06-23] MEDS: SPIRONOLACTONE 100 MG TAB PO SCH (09:00)
[2021-06-23] MEDS: PANTOPRAZOLE 40MG TABLET PO SCH (09:17)
[2021-06-23] MEDS: LACTULOSE 20 GM/30 ML UCUP PO SCH (09:17)
[2021-06-23] MEDS: ASPIRIN EC 81 MG TAB PO SCH (09:17)
== END 2021-06-23 10:00 | disposition home or self-care (01) | DRG 443 ==
LOC: ER 08:19 → ERHOLD 12:58 → 2ND 16:53 → OBSVTOIN 19:51
PROVIDERS: ADMIT Internal Medicine; ATTEND Internal Medicine
DX: K72.00 Acute and subacute hepatic failure without coma (principal); E11.9 Type 2 diabetes mellitus without complications; I10 Essential (primary) hypertension; E78.5 Hyperlipidemia, unspecified; D64.9 Anemia, unspecified; K21.9 Gastro-esophageal reflux disease without esophagitis; R77.8 Other specified abnormalities of plasma proteins; Z79.4 Long term (current) use of insulin; Z79.899 Other long term (current) drug therapy; Z88.8 Allergy status to other drugs, medicaments and biological substances; Z91.14 Patient's other noncompliance with medication regimen; Z79.84 Long term (current) use of oral hypoglycemic drugs
CPT/HCPCS: 36415; 70450; 71045; 78452; 80048; 80053; 80076; 82140; 82947; 83735; 83880; 84484; 85025; 85610; 85730; 93005; 93017; 93306; 99283; A9500; G0378; J2785; J7030; U0003

== ENCOUNTER 2021-07-07 07:05 | Day surgery (SDC) | payer OTHER ==
[2021-07-07] MEDS ORDERED: NA CHLORIDE 0.9% 1,000 ML ONE (07:34)
[2021-07-07] MEDS ORDERED: LIDOCAINE 1% MPF 5 ML VIAL ONE (08:50)
[2021-07-07] MEDS ORDERED: propofoL 200 MG/20 ML VIAL IV ONE (08:50)
[2021-07-07] MEDS ORDERED: SUCCINYLCHOLINE 20 MG/ML (10 ML) IV ONE (08:58)
[2021-07-07 13:22] VITALS: BP 103/55; O2SAT 100
[2021-07-07 13:24] VITALS: TEMP 97.7
== END 2021-07-07 10:05 | disposition home or self-care (01) ==
LOC: OR 07:05
PROVIDERS: ATTEND Internal Medicine Gastroenterology
PROC: 06L38CZ Occlusion of Esophageal Vein with Extraluminal Device, Via Natural or Artificial Opening Endoscopic (ICD-10-PCS; principal; 2021-07-07 08:15)
DX: I85.00 Esophageal varices without bleeding (principal); D64.9 Anemia, unspecified; Q27.39 Arteriovenous malformation, other site; K29.70 Gastritis, unspecified, without bleeding; K76.6 Portal hypertension; K31.89 Other diseases of stomach and duodenum; Z20.822 Contact with and (suspected) exposure to COVID-19; F41.8 Other specified anxiety disorders
CPT/HCPCS: 43244; 82947; U0003; J2704; J0330; J7030

== ENCOUNTER 2021-07-21 07:07 | Day surgery (SDC) | payer OTHER ==
[2021-07-21] MEDS ORDERED: NA CHLORIDE 0.9% 1,000 ML ONE (07:45)
[2021-07-21] MEDS ORDERED: propofoL 200 MG/20 ML VIAL IV ONE ×2 (09:15)
[2021-07-21] MEDS ORDERED: LIDOCAINE 1% MPF 5 ML VIAL ONE (09:17)
[2021-07-21 09:50] VITALS: TEMP 97.9
[2021-07-21 10:12] VITALS: O2SAT 100
[2021-07-21 10:13] VITALS: BP 110/53
[2021-07-21 10:40] LABS: Absolute Lymphocytes (CBC) 1.9 K/uL (0.7-4.9); Hematocrit 28.4 % (39.6-49.0); Lymphocytes % 35.1 % (15.3-44.8); MPV 8.2 fL (7.6-11.3); RBC Red Blood Cell Count 3.89 M/uL (4.33-5.43)
[2021-07-21 10:57] LABS: ALT/SGPT 29 U/L (12-78); AST/SGOT 30 U/L (15-37); Albumin 2.8 g/dL (3.4-5.0); Alkaline Phosphatase 122 U/L (45-117); BUN Blood Urea Nitrogen 6 mg/dL (7-18); Bicarbonate 23 mmol/L (21-32); Bilirubin Total 2.2 mg/dL (0.2-1.0); Ferritin 10.5 ng/mL (26-388); Glucose Level 116 mg/dL (74-106); Potassium 3.7 mmol/L (3.5-5.1); Protein, Total 6.6 g/dL (6.4-8.2); Sodium Level 140 mmol/L (136-145); Transferrin 269 mg/dL (200-360)
[2021-07-21 11:09] LABS: Protime INR 1.25
== END 2021-07-21 10:33 | disposition home or self-care (01) ==
LOC: OR 07:07
PROVIDERS: ATTEND Internal Medicine Gastroenterology
PROC: 0DJD8ZZ Inspection of Lower Intestinal Tract, Via Natural or Artificial Opening Endoscopic (ICD-10-PCS; principal; 2021-07-21 08:45)
DX: D64.9 Anemia, unspecified (principal); Z86.010 Personal history of colon polyps; F41.9 Anxiety disorder, unspecified; E11.9 Type 2 diabetes mellitus without complications; I10 Essential (primary) hypertension; K64.8 Other hemorrhoids; K57.30 Diverticulosis of large intestine without perforation or abscess without bleeding; Z20.822 Contact with and (suspected) exposure to COVID-19
CPT/HCPCS: 45378; 85025; 36415; 85610; 82947; 85730; 82728; 83540; 80053; 84466; U0002; J2704 ×2; J7030

== ENCOUNTER 2021-07-31 08:54 | Emergency (ER) | payer OTHER ==
--- OUTSIDE RECORDS SUMMARY | 2021-07-31 09:10 | XMS REPORT | Continuity of Care Document ---
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 daily. carvediloL 0 Yes [id number] 3.125mg Take 1 [facility] 3.125 mg 5-19 tablet by ity of tablet 00:00: mouth 2 (two) Medical times Branch daily with meals. Pitavastati 2020-0 Yes [id number] 2mg Take 2 mg [facility] n (LIVALO) 5-19 by mouth ity o f 2 mg Tab 00:00: daily. Medical Branch metFORMIN 2020-0 Yes [id number] 500mg Take 1 [facility] 500 mg 5-19 tablet by ity of tablet 00:00: mouth 2 (two) Medical times Branch daily with meals. Blood-Gluco 2020-0 Yes [id number] Use BID, [facility] se Meter 5-19 DX E11.9 ity of (ACCU-CHEK 00:00: (Brand [place] GUIDE 00 upon Medical GLUCOSE insurance Branch METER) Misc approval) ACCU-CHEK GUIDE blood sugar 2020-0 Yes [id number] Use BID, [facility] diagnostic 5-19 DX E11.9 ity o f (ACCU-CHEK 00:00: (Brand [place] GUIDE TEST 00 upon Medical STRIPS) insurance Branch strip approval) rifAXIMin 2020-0 Yes [id number] 550mg Take 1 [facility] 550 mg 5-19 tablet by ity of tablet 00:00: mouth 2 (two) Medical times Branch daily. hydrOXYzine 2020-0 Yes [id number] 50mg Take 1 [facility] nivers 50 mg 5-19 tablet by ity of tablet 00:00: mouth 3 (three) Medical times Branch daily as needed for Itching. lisinopriL Yes [id number] 20mg Take 1 [facility]ivers 20 mg 5-19 tablet by ity of tablet 00:00: mouth 00 daily. Medical Branch spironolact Yes [id number] 25mg Take 1 [facility] one 25 mg 5-19 tablet by ity o f tablet 00:00: mouth 2 (two) Medical times Branch daily. carvediloL Yes [id number] 3.125mg Take 1 [facility] 3.125 mg 5-19 tablet by ity of tablet 00:00: mouth 2 (two) Medical times Branch daily with meals. Pitavastati Yes [id number] 2mg Take 2 mg [facility] n (LIVALO) 5-19 by mouth ity o f 2 mg Tab 00:00: daily. Medical Branch metFORMIN Yes [id number] 500mg Take 1 [facility] 500 mg 5-19 tablet by ity of tablet 00:00: mouth 2 (two) Medical times Branch daily with meals. Blood-Gluco Yes [id number] Use BID, [facility] se Meter 5-19 DX E11.9 ity of (ACCU-CHEK 00:00: ([employer] GUIDE 00 upon Medical GLUCOSE insurance Branch METER) Misc approval) ACCU-CHEK GUIDE blood sugar Yes [id number] Use BID, [facility] diagnostic 5-19 DX E11.9 ity o f (ACCU-CHEK 00:00: ([facility] [place] GUIDE TEST 00 upon Medical STRIPS) insurance Branch strip approval) furosemide 2020- No [id number] 40mg Take 1 [facility] 40 mg 5-19 10-20 tablet by ity of tablet 00:00: 00:00 mouth [place] 00 :00 every Medical morning Branch and evening. pantoprazol 2020- No [id number] 40mg Take 1 [facility] e 40 mg EC 5-19 10-19 tablet by ity of tablet 00:00: 00:00 mouth [place] 00 :00 daily. Medical Branch spironolact 2020- No 100mg Q.5D Take [address] [facility] one 4-06 04-06 mg by [facility] (ALDACTONE) 12:49: 00:00 mouth 2 Me dical 100 MG 47 :00 (two) Center tablet times daily. penicillin 2020- No 500mg Q.[id number] Take [address] [facility] potassium -10 30-06 [id number] mg by [facility] (VEETID) 12:48: 00:00 3D mouth 3 Medic al 500 MG 17 :00 (three) Center tablet times daily. pitavastati 2020- No 2mg QD Take [address] [facility] n calcium 09-01- by mouth [facility] (LIVALO) 2 12:48: 00:00 daily . Med ical mg Tab 08 :00 Center tablet thiamine No 100mg QD Take [address] [facility] (vitamin 09-01-06 mg by [facility] - B-1) 100 MG 12:48: 00:00 mouth Medi jeevan tablet 08 :00 daily. Center azithromyci Yes [id number] 250mg Take 1 [facility] n 3-24 tablet by ity of (ZITHROMAX 00:00: mouth [place] Z-MERCY) 250 00 daily. Medical mg tablet Take 500 Branch mg day 1, then 250 mg days 2 to 5. azithromyci 2020- No [id number] 250mg Take 1 [facility] n 3-19 10- tablet by ity of (ZITHROMAX 00:00: 00:00 mouth [place] Z-MERCY) 250 00 :00 daily. Medical mg tablet Take 500 Branch mg day 1, then 250 mg days 2 to 5. azithromyci 2020- No [id number] 250mg Take 1 [facility] n 3-24 -19 tablet by ity of (ZITHROMAX 00:00: 00:00 mouth [place] Z-MERCY) 250 00 :00 daily. Medical mg tablet Take 500 Branch mg day 1, then 250 mg days 2 to 5. LISINOPRIL Yes [id number] Take 1 [facility] 20 mg 3-09 tablet by ity of tablet 00:00: mouth once [place] 00 daily Medical Branch LISINOPRIL Yes [id number] Take 1 [facility] 20 mg 3-09 tablet by ity of tablet 00:00: mouth once [place] 00 daily Medical Branch LISINOPRIL 2020-0 Yes [id number] Take 1 [facility] 20 mg 3-09 tablet by ity of tablet 00:00: mouth once [place] 00 daily Medical Branch LISINOPRIL 2020-0 2020- No [id number] Take 1 [facility] 20 mg 3-09 05-19 tablet by ity of tablet 00:00: 00:00 [place] 00 :00 daily Medical Branch LISINOPRIL 2020-0 2020- No [id number] Take 1 [facility] 20 mg 3-09 05-19 tablet by ity of tablet 00:00: 00:00 mouth [place] 00 :00 daily Medical Branch clobetasoL 2020-0 Yes [id number] Apply to [facility] 0.05 % 2-09 area(s) 2 ity of cream 00:00: (two) [place] 00 times Medical daily. Branch clobetasoL 1-0 Yes [id number] Apply to [facility] 0.05 % 2-09 area(s) 2 ity of cream 00:00: (two) [place] 00 times Medical daily. Branch clobetasoL 1-0 Yes [id number] Apply to [facility] 0.05 % 2-09 area(s) 2 ity of cream 00:00: (two) [place] 00 times Medical daily. Branch clobetasoL 1-0 Yes [id number] Apply to [facility] 0.05 % 2-09 area(s) 2 ity of cream 00:00: (two) [place] 00 times Medical daily. Branch clobetasoL 1-0 Yes [id number] Apply to [facility] 0.05 % 2-09 area(s) 2 ity of cream 00:00: (two) [place] 00 times Medical daily. Branch clobetasoL 2021-0 Yes [id number] Apply to [facility] 0.05 % 2-09 area(s) 2 ity of cream 00:00: (two) [place] 00 times Medical daily. Branch clobetasoL 2021-0 Yes [id number] Apply to [facility] 0.05 % 2-09 area(s) 2 ity of cream 00:00: (two) [place] 00 times Medical daily. Branch clobetasoL 2021-0 Yes [id number] Apply to [facility] 0.05 % 2-09 area(s) 2 ity of cream 00:00: (two) [place] 00 times Medical daily. Branch clobetasoL 2020-0 Yes [id number] Apply to [facility] 0.05 % 2-09 area(s) 2 ity of cream 00:00: (two) [place] 00 times Medical daily. Branch clobetasoL 2020-0 Yes [id number] Apply to [facility] 0.05 % 2-09 area(s) 2 ity of cream 00:00: (two) [place] 00 times Medical daily. Branch clobetasoL 2020-0 Yes [id number] Apply to [facility] 0.05 % 2-09 area(s) 2 ity of cream 00:00: (two) [place] 00 times Medical daily. Branch clobetasoL 2020-0 Yes [id number] Apply to [facility] 0.05 % 2-09 area(s) 2 ity of cream 00:00: (two) [place] 00 times Medical daily. Branch clobetasoL 2020-0 Yes [id number] Apply to [facility] 0.05 % 2-09 area(s) 2 ity of cream 00:00: (two) [place] 00 times Medical daily. Branch azithromyci 2020- No 500mg 500 mg, IV [...] of 1,000 mg in 03:45: 03:27 [facility]gyback, [place] NaCl 0.9% 00 :00 ONCE, 1 Medical (NS) 50 mL dose, Alyssa Bran ch MINI-BAG 06/25/20 at 2145, 50 mL
Reas on for Anti-Infec tive: Documented Infection< br>Documen lisa Infection Site: Respirator y
Durat ion of Therapy: 7 days foLIC acid Yes [id number] 1mg Take 1 [facility] 1 mg tablet 1-28 tablet by ity of 00:00: mouth [place] 00 daily. Medical Branch foLIC acid 2020-0 Yes [id number] 1mg Take 1 [facility] 1 mg tablet 1-28 tablet by ity of 00:00: mouth [place] 00 daily. Medical Branch foLIC acid 2020-0 Yes [id number] 1mg Take 1 [facility] 1 mg tablet 1-28 tablet by ity of 00:00: mouth [place] 00 daily. Medical Branch foLIC acid 2020-0 Yes [id number] 1mg Take 1 [facility] 1 mg tablet 1-28 tablet by ity of 00:00: mouth [place] 00 daily. Medical Branch foLIC acid 2020-0 Yes [id number] 1mg Take 1 [facility] 1 mg tablet 1-28 tablet by ity of 00:00: mouth [place] 00 daily. Medical Branch foLIC acid 2020-0 Yes [id number] 1mg Take 1 [facility] 1 mg tablet 1-28 tablet by ity of 00:00: mouth [place] 00 daily. Medical Branch foLIC acid 2020-0 Yes [id number] 1mg Take 1 [facility] 1 mg tablet 1-28 tablet by ity of 00:00: mouth [place] 00 daily. Medical Branch foLIC acid 2020-0 Yes [id number] 1mg Take 1 [facility] 1 mg tablet 1-28 tablet by ity of 00:00: mouth [place] 00 daily. Medical Branch foLIC acid 2020-0 Yes [id number] 1mg Take 1 [facility] 1 mg tablet 1-28 tablet by ity of 00:00: mouth [place] 00 daily. Medical Branch foLIC acid 2020-0 Yes [id number] 1mg Take 1 [facility] 1 mg tablet 1-28 tablet by ity of 00:00: mouth [place] 00 daily. Medical Branch foLIC acid 2020-0 Yes [id number] 1mg Take 1 [facility] 1 mg tablet 1-28 tablet by ity of 00:00: mouth [place] 00 daily. Medical Branch foLIC acid 2020-0 Yes [id number] 1mg Take 1 [facility] 1 mg tablet 1-28 tablet by ity of 00:00: mouth [place] 00 daily. Medical Branch foLIC acid 2020-0 Yes [id number] 1mg Take 1 [facility] 1 mg tablet 1-28 tablet by ity of 00:00: mouth [place] 00 daily. Medical Branch foLIC acid 2020-0 Yes [id number] 1mg Take 1 [facility] 1 mg tablet 1-28 tablet by ity of 00:00: mouth [place] 00 daily. Medical Branch amoxicillin 2020- No [id number] 500mg Take 1 [facility] -pot 1-28 02-05 tablet by ity of clavulanate 00:00: 05:59 mouth [place] 500 mg 00 :00 every 8 Medical 500-125 mg (eight) Branch tablet hours for 7 days. clobetasoL Yes 1{appli Q.5D Apply [address] (TEMOVATE) 8-03 cation} [facility] - 0.05 % 00:00: n Medical cream 00 topically Center 2 (two) times daily. furosemide 2020- No 80mg Q.5D Take [address] [facility] (LASIX) 40 1-07 04-06 tablets [facility] - MG tablet 00:00: 00:00 (80 mg Medic al 00 :00 total) by Center mouth 2 (two) times daily. furosemide 2018-05 Yes [id number] 40mg Take 1 [facility] nivers 40 mg 2-20 tablet by ity of tablet 00:00: mouth [place] 00 every Medical morning Branch and evening. metFORMIN 2018-05 Yes [id number] 500mg Take 1 [facility] 500 mg 2-20 tablet by ity of tablet 00:00: mouth 2 [place] (two) Medical times Branch daily with meals. carvedilol 2018-05 Yes [id number] 3.125mg Take 1 [facility] 3.125 mg 2-20 tablet by ity of tablet 00:00: mouth 2 [place] 00 (two) Medical times Branch daily with meals. lisinopril 2018-05 Yes [id number] 20mg Take 1 [facility] nivers 20 mg 2-20 tablet by ity of tablet 00:00: mouth [place] 00 daily. Medical Branch spironolact 2018- Yes [id number] 25mg Take 1 [facility] one 25 mg 2-20 tablet by ity o f tablet 00:00: mouth 2 [place] 00 (two) Medical times Branch daily. rifAXIMin 2018- Yes [id number] 550mg Take 1 [facility] 550 mg 2-20 tablet by ity of tablet 00:00: mouth 2 [place] 00 (two) Medical times Branch daily. albuterol 2018-05 Yes [id number] 2{puff} Inhale 2 [facility] 90 2-20 Puffs ity of mcg/actuati 00:00: every 6 [place] on inhaler 00 (six) Medical hours as Branch needed for Wheezing or Shortness of Breath. Pitavastati 2018-05 Yes [id number] 2mg Take 2 mg [facility] n (LIVALO) 2-20 by mouth ity o f 2 mg Tab 00:00: daily. [place] 00 Medical Branch Lancets 2018-05 Yes [id number] Use BID, U nivers Misc 2-20 DX E11.9 ity of 00:00: ([facility] [place] 00 upon Medical insurance Branch approval) blood sugar 2018-05 Yes [id number] Use BID, [facility] diagnostic 2-20 DX E11.9 ity o f (ACCU-CHEK 00:00: ([facility] GUIDE) 00 upon Medical strip insurance Branch approval) lactulose 2018-05 Yes [id number] 15mL Take 15 mL [facility] 10 gram/15 2-20 by mouth 3 ity of mL solution 00:00: (three) [place] 00 times Medical daily. Branch hydrOXYzine 2018-05 Yes [id number] 50mg Take 1 U nivers 50 mg 2-20 tablet by ity of tablet 00:00: mouth 3 [place] 00 (three) Medical times Branch daily as needed for Itching. calcipotrie 2018-05 Yes [id number] Apply to [facility] ne 0.005 % 2-20 area(s) 2 ity of cream 00:00: (two) [place] 00 times Medical daily. Branch clobetasol 2018-05 Yes [id number] Apply to [facility] 0.05 % 2-20 area(s) 2 ity of cream 00:00: (two) [place] 00 times Medical daily. Branch foLIC acid 2018-05 Yes [id number] 1mg Take 1 [facility] 1 mg tablet 2-20 tablet by ity of 00:00: mouth [place] 00 daily. Medical Branch pantoprazol 2018-05 Yes [id number] 40mg Take 1 [facility] e 40 mg EC 2-20 tablet by ity of tablet 00:00: mouth [place] 00 daily. Medical Branch triamcinolo 2018-05 Yes [id number] Apply to [facility] ne 2-20 affected ity of acetonide 00:00: area(s) 2 [place] 0.1 % cream 00 (two) Medical times Branch daily. furosemide 2018-05 Yes [id number] 40mg Take 1 U nivers 40 mg 2-20 tablet by ity of tablet 00:00: mouth 00 every Medical morning Branch and evening. metFORMIN 2018-05 Yes [id number] 500mg Take 1 [facility] 500 mg 2-20 tablet by ity of tablet 00:00: mouth 2 (two) Medical times Branch daily with meals. carvedilol 2018-05 Yes [id number] 3.125mg Take 1 [facility] 3.125 mg 2-20 tablet by ity of tablet 00:00: mouth (two) Medical times Branch daily with meals. lisinopril 2018-05 Yes [id number] 20mg Take 1 U nivers 20 mg 2-20 tablet by ity of tablet 00:00: mouth daily. Medical Branch spironolact 2018-05 Yes [id number] 25mg Take 1 [facility] one 25 mg 2-20 tablet by ity o f tablet 00:00: mouth (two) Medical times Branch daily. rifAXIMin 2018-05 Yes [id number] 550mg Take 1 [facility] 550 mg 2-20 tablet by ity of tablet 00:00: mouth [place] (two) Medical times Branch daily. albuterol 2018-05 Yes [id number] 2{puff} Inhale 2 [facility] 90 2-20 Puffs ity of mcg/actuati 00:00: every 6 [place] on inhaler 00 (six) Medical hours as Branch needed for Wheezing or Shortness of Breath. Pitavastati 2018-05 Yes [id number] 2mg Take 2 mg [facility] n (LIVALO) 2-20 by mouth ity o f 2 mg Tab 00:00: daily. [place] 00 Medical Branch Lancets 2018-05 Yes [id number] Use BID, U nivers Misc 2-20 DX E11.9 ity of 00:00: ([facility] 00 [facility] Medical insurance Branch approval) blood sugar 2018-05 Yes [id number] Use BID, [facility] diagnostic 2-20 DX E11.9 ity o f (ACCU-CHEK 00:00: ([facility] GUIDE) [address] [place] [address] strip insurance Branch approval) lactulose 2018-05 Yes [id number] 15mL Take 15 mL [facility] 10 gram/15 2-20 by mouth 3 ity of mL solution 00:00: (three) [place] 00 times Medical daily. Branch hydrOXYzine 2018-05 Yes [id number] 50mg Take 1 U nivers 50 mg 2-20 tablet by ity of tablet 00:00: mouth 3 [place] 00 (three) Medical times Branch daily as needed for Itching. calcipotrie 2018-05 Yes [id number] Apply to Univers ne 0.005 % 2-20 area(s) 2 ity of cream 00:00: (two) [place] 00 times Medical daily. Branch clobetasol 2018-05 Yes [id number] Apply to Univers 0.05 % 2-20 area(s) 2 ity of cream 00:00: (two) [place] 00 times Medical daily. Branch foLIC acid 2018-05 Yes [id number] 1mg Take 1 [facility] 1 mg tablet 2-20 tablet by ity of 00:00: mouth [place] 00 daily. Medical Branch pantoprazol 2018-05 Yes [id number] 40mg Take 1 [facility] e 40 mg EC 2-20 tablet by ity of tablet 00:00: mouth [place] 00 daily. Medical Branch triamcinolo 2018-05 Yes [id number] Apply to [facility] ne 2-20 affected ity of acetonide 00:00: area(s) 2 [place] 0.1 % cream 00 (two) Medical times Branch daily. furosemide 2018-05 Yes [id number] 40mg Take 1 U nivers 40 mg 2-20 tablet by ity of tablet 00:00: mouth [place] 00 every Medical morning Branch and evening. metFORMIN 2018-05 Yes [id number] 500mg Take 1 [facility] 500 mg 2-20 tablet by ity of tablet 00:00: mouth 2 00 (two) Medical times Branch daily with meals. carvedilol 2018-05 Yes [id number] 3.125mg Take 1 [facility] 3.125 mg 2-20 tablet by ity of tablet 00:00: mouth 2 00 (two) Medical times Branch daily with meals. lisinopril 2018-05 Yes [id number] 20mg Take 1 U nivers 20 mg 2-20 tablet by ity of tablet 00:00: mouth [place] 00 daily. Medical Branch spironolact 2018-05 Yes [id number] 25mg Take 1 [facility] one 25 mg 2-20 tablet by ity o f tablet 00:00: mouth 2 00 (two) Medical times Branch daily. rifAXIMin 2018-05 Yes [id number] 550mg Take 1 [facility] 550 mg 2-20 tablet by ity of tablet 00:00: mouth 2 00 (two) Medical times Branch daily. albuterol 2018-05 Yes [id number] 2{puff} Inhale 2 [facility] 90 2-20 Puffs ity of mcg/actuati 00:00: every 6 [place] on inhaler 00 (six) Medical hours as Branch needed for Wheezing or Shortness of Breath. Pitavastati 2018-05 Yes [id number] 2mg Take 2 mg [facility] n (LIVALO) 2-20 by mouth ity o f 2 mg Tab 00:00: daily. Medical Branch Lancets 2018-05 Yes [id number] Use BID, U nivers Misc 2-20 DX E11.9 ity of 00:00: ([facility] 00 upon Medical insurance Branch approval) blood sugar 2018-05 Yes [id number] Use BID, Univers diagnostic 2-20 DX E11.9 ity o f (ACCU-CHEK 00:00: ([facility] GUIDE) [address] [place] [address] strip insurance Branch approval) lactulose 2018-05 Yes [id number] 15mL Take 15 mL [facility] 10 gram/15 2-20 by mouth 3 ity of mL solution 00:00: (three) [place] 00 times Medical daily. Branch hydrOXYzine 2018-05 Yes [id number] 50mg Take 1 U nivers 50 mg 2-20 tablet by ity of tablet 00:00: mouth 3 00 (three) Medical times Branch daily as needed for Itching. calcipotrie 2018-05 Yes [id number] Apply to Univers ne 0.005 % 2-20 area(s) 2 ity of cream 00:00: (two) [place] 00 times Medical daily. Branch clobetasol 2018-05 Yes [id number] Apply to [facility] 0.05 % 2-20 area(s) 2 ity of cream 00:00: (two) [place] 00 times Medical daily. Branch pantoprazol 2018-05 Yes [id number] 40mg Take 1 [facility] e 40 mg EC 2-20 tablet by ity of tablet 00:00: mouth [place] 00 daily. Medical Branch triamcinolo 2018-05 Yes [id number] Apply to Univers ne 2-20 affected ity of acetonide 00:00: area(s) 2 [place] 0.1 % cream 00 (two) Medical times Branch daily. furosemide 2018-05 Yes [id number] 40mg Take 1 U nivers 40 mg 2-20 tablet by ity of tablet 00:00: mouth 00 every Medical morning Branch and evening. metFORMIN 2018-05 Yes [id number] 500mg Take 1 [facility] 500 mg 2-20 tablet by ity of tablet 00:00: mouth 2 (two) Medical times Branch daily with meals. carvedilol 2018-05 Yes [id number] 3.125mg Take 1 [facility] 3.125 mg 2-20 tablet by ity of tablet 00:00: mouth (two) Medical times Branch daily with meals. lisinopril 2018-05 Yes [id number] 20mg Take 1 U nivers 20 mg 2-20 tablet by ity of tablet 00:00: mouth daily. Medical Branch spironolact 2018-05 Yes [id number] 25mg Take 1 [facility] one 25 mg 2-20 tablet by ity o f tablet 00:00: mouth (two) Medical times Branch daily. rifAXIMin 2018-05 Yes [id number] 550mg Take 1 [facility] 550 mg 2-20 tablet by ity of tablet 00:00: mouth (two) Medical times Branch daily. albuterol 2018-05 Yes [id number] 2{puff} Inhale 2 [facility] 90 2-20 Puffs ity of mcg/actuati 00:00: every 6 [place] on inhaler 00 (six) Medical hours as Branch needed for Wheezing or Shortness of Breath. Pitavastati 2018-05 Yes [id number] 2mg Take 2 mg [facility] n (LIVALO) 2-20 by mouth ity o f 2 mg Tab 00:00: daily. [place] 00 Medical Branch Lancets 2018-05 Yes [id number] Use BID, U nivers Misc 2-20 DX E11.9 ity of 00:00: (Brand [place] 00 upon Medical insurance Branch approval) blood sugar 2018-05 Yes [id number] Use BID, [facility] diagnostic 2-20 DX E11.9 ity o f (ACCU-CHEK 00:00: ([facility] GUIDE) [address] [place] [address] strip insurance Branch approval) lactulose 2018-05 Yes [id number] 15mL Take 15 mL [facility] 10 gram/15 2-20 by mouth 3 ity of mL solution 00:00: (three) [place] 00 times Medical daily. Branch hydrOXYzine 2018-05 Yes [id number] 50mg Take 1 U nivers 50 mg 2-20 tablet by ity of tablet 00:00: mouth 3 [place] 00 (three) Medical times Branch daily as needed for Itching. calcipotrie 2018-05 Yes [id number] Apply to Univers ne 0.005 % 2-20 area(s) 2 ity of cream 00:00: (two) [place] 00 times Medical daily. Branch clobetasol 2018-05 Yes [id number] Apply to Univers 0.05 % 2-20 area(s) 2 ity of cream 00:00: (two) [place] 00 times Medical daily. Branch pantoprazol 2018-05 Yes [id number] 40mg Take 1 [facility] e 40 mg EC 2-20 tablet by ity of tablet 00:00: mouth [place] 00 daily. Medical Branch triamcinolo 2018-05 Yes [id number] Apply to Univers ne 2-20 affected ity of acetonide 00:00: area(s) 2 [place] 0.1 % cream 00 (two) Medical times Branch daily. albuterol 2018-05 Yes [id number] 2{puff} Inhale 2 [facility] 90 2-20 Puffs ity of mcg/actuati 00:00: every 6 [place] on inhaler 00 (six) Medical hours as Branch needed for Wheezing or Shortness of Breath. Lancets 2018-05 Yes [id number] Use BID, U nivers Misc 2-20 DX E11.9 ity of 00:00: (Brand [place] 00 upon Medical insurance Branch approval) lactulose 2018-05 Yes [id number] 15mL Take 15 mL [facility] 10 gram/15 2-20 by mouth 3 ity of mL solution 00:00: (three) [place] 00 times Medical daily. Branch calcipotrie 2018-05 Yes [id number] Apply to Univers ne 0.005 % 2-20 area(s) 2 ity of cream 00:00: (two) [place] 00 times Medical daily. Branch triamcinolo 2018-05 Yes [id number] Apply to Univers ne 2-20 affected ity of acetonide 00:00: area(s) 2 [place] 0.1 % cream 00 (two) Medical times Branch daily. furosemide 2018-05 Yes [id number] 40mg Take 1 U nivers 40 mg 2-20 tablet by ity of tablet 00:00: mouth [place] 00 every Medical morning Branch and evening. metFORMIN 2018-05 Yes [id number] 500mg Take 1 [facility] 500 mg 2-20 tablet by ity of tablet 00:00: mouth 2 [place] (two) Medical times Branch daily with meals. carvedilol 2018-05 Yes [id number] 3.125mg Take 1 [facility] 3.125 mg 2-20 tablet by ity of tablet 00:00: mouth 2 [place] (two) Medical times Branch daily with meals. spironolact 2018-05 Yes [id number] 25mg Take 1 [facility] one 25 mg 2-20 tablet by ity o f tablet 00:00: mouth 2 (two) Medical times Branch daily. rifAXIMin 2018-05 Yes [id number] 550mg Take 1 [facility] 550 mg 2-20 tablet by ity of tablet 00:00: mouth 2 [place] (two) Medical times Branch daily. albuterol 2018-05 Yes [id number] 2{puff} Inhale 2 [facility] 90 2-20 Puffs ity of mcg/actuati 00:00: every 6 [place] on inhaler 00 (six) Medical hours as Branch needed for Wheezing or Shortness of Breath. Pitavastati 2018-05 Yes [id number] 2mg Take 2 mg [facility] n (LIVALO) 2-20 by mouth ity o f 2 mg Tab 00:00: daily. [place] [address] Medical Branch Lancets 2018-05 Yes [id number] Use BID, U nivers Misc 2-20 DX E11.9 ity of 00:00: ([facility] 00 upon Medical insurance Branch approval) blood sugar 2018-05 Yes [id number] Use BID, [facility] diagnostic 2-20 DX E11.9 ity o f (ACCU-CHEK 00:00: ([facility] GUIDE) [address] [place] [address] Medical strip insurance Branch approval) lactulose 2018-05 Yes [id number] 15mL Take 15 mL [facility] 10 gram/15 2-20 by mouth 3 ity of mL solution 00:00: (three) [place] 00 times Medical daily. Branch hydrOXYzine 2018-05 Yes [id number] 50mg Take 1 U nivers 50 mg 2-20 tablet by ity of tablet 00:00: mouth 3 [place] 00 (three) Medical times Branch daily as needed for Itching. calcipotrie 2018-05 Yes [id number] Apply to Univers ne 0.005 % 2-20 area(s) 2 ity of cream 00:00: (two) times Medical daily. Branch pantoprazol 2018-05 Yes [id number] 40mg Take 1 [facility] e 40 mg EC 2-20 tablet by ity of tablet 00:00: mouth daily. Medical Branch triamcinolo 2018-05 Yes [id number] Apply to Univers ne 2-20 affected ity of acetonide 00:00: area(s) 2 [place] 0.1 % cream 00 (two) Medical times Branch daily. furosemide 2018-05 Yes [id number] 40mg Take 1 U nivers 40 mg 2-20 tablet by ity of tablet 00:00: mouth 00 every Medical morning Branch and evening. metFORMIN 2018-05 Yes [id number] 500mg Take 1 [facility] 500 mg 2-20 tablet by ity of tablet 00:00: mouth (two) Medical times Branch daily with meals. carvedilol 2018-05 Yes [id number] 3.125mg Take 1 [facility] 3.125 mg 2-20 tablet by ity of tablet 00:00: mouth (two) Medical times Branch daily with meals. spironolact 2018-05 Yes [id number] 25mg Take 1 [facility] one 25 mg 2-20 tablet by ity o f tablet 00:00: mouth 2 (two) Medical times Branch daily. rifAXIMin 2018-05 Yes [id number] 550mg Take 1 [facility] 550 mg 2-20 tablet by ity of tablet 00:00: mouth 2 (two) Medical times Branch daily. albuterol 2018-05 Yes [id number] 2{puff} Inhale 2 [facility] 90 2-20 Puffs ity of mcg/actuati 00:00: every 6 [place] on inhaler 00 (six) Medical hours as Branch needed for Wheezing or Shortness of Breath. Pitavastati 2018-05 Yes [id number] 2mg Take 2 mg [facility] n (LIVALO) 2-20 by mouth ity o f 2 mg Tab 00:00: daily. [place] [address] Medical Branch Lancets 2018-05 Yes [id number] Use BID, U nivers Misc 2-20 DX E11.9 ity of 00:00: ([facility] [place] upon Medical insurance Branch approval) blood sugar 2018-05 Yes [id number] Use BID, [facility] diagnostic 2-20 DX E11.9 ity o f (ACCU-CHEK 00:00: ([facility] [place] GUIDE) 00 upon Medical strip insurance Branch approval) lactulose 2018-05 Yes [id number] 15mL Take 15 mL [facility] 10 gram/15 2-20 by mouth 3 ity of mL solution 00:00: (three) [place] 00 times Medical daily. Branch hydrOXYzine 2018-05 Yes [id number] 50mg Take 1 [facility] n[facility] 50 mg 2-20 tablet by ity of tablet 00:00: mouth 3 [place] 00 (three) Medical times Branch daily as needed for Itching. calcipotrie 2018-05 Yes [id number] Apply to [facility] ne 0.005 % 2-20 area(s) 2 ity of cream 00:00: (two) [place] 00 times Medical daily. Branch pantoprazol 2018-05 Yes [id number] 40mg Take 1 [facility] e 40 mg EC 2-20 tablet by ity of tablet 00:00: mouth [place] 00 daily. Medical Branch triamcinolo 2018-05 Yes [id number] Apply to [facility] ne 2-20 affected ity of acetonide 00:00: area(s) 2 [place] 0.1 % cream 00 (two) Medical times Branch daily. furosemide 2018-05 Yes [id number] 40mg Take 1 [facility] 40 mg 2-20 tablet by ity of tablet 00:00: mouth [place] 00 every Medical morning Branch and evening. metFORMIN 2018-05 Yes [id number] 500mg Take 1 [facility] 500 mg 2-20 tablet by ity of tablet 00:00: mouth 2 [place] (two) Medical times Branch daily with meals. carvedilol 2018-05 Yes [id number] 3.125mg Take 1 [facility] 3.125 mg 2-20 tablet by ity of tablet 00:00: mouth 2 [place] (two) Medical times Branch daily with meals. spironolact 2018-05 Yes [id number] 25mg Take 1 [facility] one 25 mg 2-20 tablet by ity o f tablet 00:00: mouth 2 [place] (two) Medical times Branch daily. rifAXIMin 2018-05 Yes [id number] 550mg Take 1 [facility] 550 mg 2-20 tablet by ity of tablet 00:00: mouth 2 [place] 00 (two) Medical times Branch daily. albuterol 2018-05 Yes [id number] 2{puff} Inhale 2 [facility] 90 2-20 Puffs ity of mcg/actuati 00:00: every 6 [place] on inhaler 00 (six) Medical hours as Branch needed for Wheezing or Shortness of Breath. Pitavastati 2018-05 Yes [id number] 2mg Take 2 mg [facility] n (LIVALO) 2-20 by mouth ity o f 2 mg Tab 00:00: daily. [place] 00 Medical Branch Lancets 2018- Yes [id number] Use BID, [facility] nivers Misc 2-20 DX E11.9 ity of 00:00: ([facility] 00 upon Medical insurance Branch approval) blood sugar 2018-05 Yes [id number] Use BID, [facility] diagnostic 2-20 DX E11.9 ity o f (ACCU-CHEK 00:00: ([facility] GUIDE) [address] [place] [address] Medical strip insurance Branch approval) lactulose 2018-05 Yes [id number] 15mL Take 15 mL [facility] 10 gram/15 2-20 by mouth 3 ity of mL solution 00:00: (three) [place] 00 times Medical daily. Branch hydrOXYzine 2018-05 Yes [id number] 50mg Take 1 [facility] nivers 50 mg 2-20 tablet by ity of tablet 00:00: mouth 3 [place] 00 (three) Medical times Branch daily as needed for Itching. calcipotrie 2018-05 Yes [id number] Apply to [facility] ne 0.005 % 2-20 area(s) 2 ity of cream 00:00: (two) [place] 00 times Medical daily. Branch pantoprazol 2018-05 Yes [id number] 40mg Take 1 [facility] e 40 mg EC 2-20 tablet by ity of tablet 00:00: mouth [place] 00 daily. Medical Branch triamcinolo 2018-05 Yes [id number] Apply to [facility] ne 2-20 affected ity of acetonide 00:00: area(s) 2 [place] 0.1 % cream 00 (two) Medical times Branch daily. albuterol 2018-05 Yes [id number] 2{puff} Inhale 2 [facility] 90 2-20 Puffs ity of mcg/actuati 00:00: every 6 [place] on inhaler 00 (six) Medical hours as Branch needed for Wheezing or Shortness of Breath. Lancets 2018- Yes [id number] Use BID, [facility] nivers Misc 2-20 DX E11.9 ity of 00:00: ([facility] 00 upon Medical insurance Branch approval) lactulose 2018-05 Yes [id number] 15mL Take 15 mL [facility] 10 gram/15 2-20 by mouth 3 ity of mL solution 00:00: (three) [place] 00 times Medical daily. Branch calcipotrie 2018-05 Yes [id number] Apply to [facility] ne 0.005 % 2-20 area(s) 2 ity of cream 00:00: (two) [place] 00 times Medical daily. Branch triamcinolo 2018-05 Yes [id number] Apply to [facility] ne 2-20 affected ity of acetonide 00:00: area(s) 2 [place] 0.1 % cream 00 (two) Medical times Branch daily. albuterol 2018-05 Yes [id number] 2{puff} Inhale 2 [facility] 90 2-20 Puffs ity of mcg/actuati 00:00: every 6 [place] on inhaler 00 (six) Medical hours as Branch needed for Wheezing or Shortness of Breath. Lancets 2018-05 Yes [id number] Use BID, [facility] nivers Misc 2-20 DX E11.9 ity of 00:00: (Brand [address] Branch approval) lactulose 2018-05 Yes [id number] 15mL Take 15 mL [facility] 10 gram/15 2-20 by mouth 3 ity of mL solution 00:00: (three) [place] 00 times Medical daily. Branch calcipotrie 2018-05 Yes [id number] Apply to [facility] ne 0.005 % 2-20 area(s) 2 ity of cream 00:00: (two) [place] 00 times Medical daily. Branch triamcinolo 2018-05 Yes [id number] Apply to [facility] ne 2-20 affected ity of acetonide 00:00: area(s) 2 [place] 0.1 % cream 00 (two) Medical times Branch daily. albuterol 2018-05 Yes [id number] 2{puff} Inhale 2 [facility] 90 2-20 Puffs ity of mcg/actuati 00:00: every 6 [place] on inhaler 00 (six) Medical hours as Branch needed for Wheezing or Shortness of Breath. Lancets 2018-05 Yes [id number] Use BID, [facility] nivers Misc 2-20 DX E11.9 ity of 00:00: (Brand [address] Branch approval) lactulose 2018-05 Yes [id number] 15mL Take 15 mL [facility] 10 gram/15 2-20 by mouth 3 ity of mL solution 00:00: (three) [place] 00 times Medical daily. Branch calcipotrie 2018- Yes [id number] Apply to [facility] ne 0.005 % 2-20 area(s) 2 ity of cream 00:00: (two) [place] 00 times Medical daily. Branch triamcinolo 2018-05 Yes [id number] Apply to [facility] ne 2-20 affected ity of acetonide 00:00: area(s) 2 [place] 0.1 % cream 00 (two) Medical times Branch daily. albuterol 2018-05 Yes [id number] 2{puff} Inhale 2 [facility] 90 2-20 Puffs ity of mcg/actuati 00:00: every 6 [place] on inhaler 00 (six) Medical hours as Branch needed for Wheezing or Shortness of Breath. Lancets 2018-05 Yes [id number] Use BID, [facility] nivers Misc 2-20 DX E11.9 ity of 00:00: (Brand [address] insurance Branch approval) lactulose 2018-05 Yes [id number] 15mL Take 15 mL [facility] 10 gram/15 2-20 by mouth 3 ity of mL solution 00:00: (three) [place] 00 times Medical daily. Branch calcipotrie 2018-05 Yes [id number] Apply to [facility] ne 0.005 % 2-20 area(s) 2 ity of cream 00:00: (two) [place] 00 times Medical daily. Branch triamcinolo 2018-05 Yes [id number] Apply to [facility] ne 2-20 affected ity of acetonide 00:00: area(s) 2 [place] 0.1 % cream 00 (two) Medical times Branch daily. albuterol 2018-05 Yes [id number] 2{puff} Inhale 2 [facility] 90 2-20 Puffs ity of mcg/actuati 00:00: every 6 [place] on inhaler 00 (six) Medical hours as Branch needed for Wheezing or Shortness of Breath. Lancets 2018-05 Yes [id number] Use BID, [facility] nivers Misc 2-20 DX E11.9 ity of 00:00: (Brand [address] insurance Branch approval) lactulose 2018-05 Yes [id number] 15mL Take 15 mL [facility] 10 gram/15 2-20 by mouth 3 ity of mL solution 00:00: (three) [place] 00 times Medical daily. Branch calcipotrie 2018-05 Yes [id number] Apply to [facility] ne 0.005 % 2-20 area(s) 2 ity of cream 00:00: (two) [place] 00 times Medical daily. Branch triamcinolo 2018-05 Yes [id number] Apply to [facility] ne 2-20 affected ity of acetonide 00:00: area(s) 2 [place] 0.1 % cream 00 (two) Medical times Branch daily. albuterol 2018-05 Yes [id number] 2{puff} Inhale 2 [facility] 90 2-20 Puffs ity of mcg/actuati 00:00: every 6 [place] on inhaler 00 (six) Medical hours as Branch needed for Wheezing or Shortness of Breath. Lancets 2018-05 Yes [id number] Use BID, [facility] nivers Misc 2-20 DX E11.9 ity of 00:00: (Brand [address] insurance Branch approval) lactulose 2018-05 Yes [id number] 15mL Take 15 mL [facility] 10 gram/15 2-20 by mouth 3 ity of mL solution 00:00: (three) [place] 00 times Medical daily. Branch calcipotrie 2018-05 Yes [id number] Apply to [facility] ne 0.005 % 2-20 area(s) 2 ity of cream 00:00: (two) [place] 00 times Medical daily. Branch triamcinolo 2018-05 Yes [id number] Apply to [facility] ne 2-20 affected ity of acetonide 00:00: area(s) 2 [place] 0.1 % cream 00 (two) Medical times Branch daily. albuterol 2018-05 Yes [id number] 2{puff} Inhale 2 [facility] 90 2-20 Puffs ity of mcg/actuati 00:00: every 6 [place] on inhaler 00 (six) Medical hours as Branch needed for Wheezing or Shortness of Breath. Lancets 2018-05 Yes [id number] Use BID, U nivers Misc 2-20 DX E11.9 ity of 00:00: (Brand [address] insurance Branch approval) lactulose 2018-05 Yes [id number] 15mL Take 15 mL [facility] 10 gram/15 2-20 by mouth 3 ity of mL solution 00:00: (three) [place] 00 times Medical daily. Branch calcipotrie 2018-05 Yes [id number] Apply to [facility] ne 0.005 % 2-20 area(s) 2 ity of cream 00:00: (two) [place] 00 times Medical daily. Branch triamcinolo 2018-05 Yes [id number] Apply to [facility] ne 2-20 affected ity of acetonide 00:00: area(s) 2 [place] 0.1 % cream 00 (two) Medical times Branch daily. albuterol 2018-05 Yes [id number] 2{puff} Inhale 2 [facility] 90 2-20 Puffs ity of mcg/actuati 00:00: every 6 [place] on inhaler 00 (six) Medical hours as Branch needed for Wheezing or Shortness of Breath. Lancets 2018-05 Yes [id number] Use BID, [facility] nivers Misc 2-20 DX E11.9 ity of 00:00: (Brand [address] insurance Branch approval) lactulose 2018-05 Yes [id number] 15mL Take 15 mL [facility] 10 gram/15 2-20 by mouth 3 ity of mL solution 00:00: (three) [place] 00 times Medical daily. Branch calcipotrie 2018-05 Yes [id number] Apply to [facility] ne 0.005 % 2-20 area(s) 2 ity of cream 00:00: (two) [place] 00 times Medical daily. Branch triamcinolo 2018-05 Yes [id number] Apply to [facility] ne 2-20 affected ity of acetonide 00:00: area(s) 2 [place] 0.1 % cream 00 (two) Medical times Branch daily. albuterol 2018-05 Yes [id number] 2{puff} Inhale 2 [facility] 90 2-20 Puffs ity of mcg/actuati 00:00: every 6 [place] on inhaler 00 (six) Medical hours as Branch needed for Wheezing or Shortness of Breath. Lancets 2018-05 Yes [id number] Use BID, U nivers Misc 2-20 DX E11.9 ity of 00:00: (Brand [address] insurance Branch approval) lactulose 2018-05 Yes [id number] 15mL Take 15 mL [facility] 10 gram/15 2-20 by mouth 3 ity of mL solution 00:00: (three) [place] 00 times Medical daily. Branch calcipotrie 2018-05 Yes [id number] Apply to [facility] ne 0.005 % 2-20 area(s) 2 ity of cream 00:00: (two) [place] 00 times Medical daily. Branch triamcinolo 2018-05 Yes [id number] Apply to [facility] ne 2-20 affected ity of acetonide 00:00: area(s) 2 [place] 0.1 % cream 00 (two) Medical times Branch daily. furosemide 2018-05- No [id number] 40mg Take 1 [facility] 40 mg 2-20 05-19 tablet by ity of tablet 00:00: 00:00 mouth [place] 00 :00 every Medical morning Branch and evening. metFORMIN 2018-05- No [id number] 500mg Take 1 [facility] 500 mg 2-20 05-19 tablet by ity of tablet 00:00: 00:00 mouth 2 [place] 00 :00 (two) Medical times Branch daily with meals. carvedilol 2018-05- No [id number] 3.125mg Take 1 [facility] 3.125 mg 2-20 05-19 tablet by ity o f tablet 00:00: 00:00 mouth 2 [place] 00 :00 (two) Medical times Branch daily with meals. spironolact 2018-05- No [id number] 25mg Take 1 [facility] one 25 mg 2-20 05-19 tablet by ity of tablet 00:00: 00:00 mouth 2 [place] 00 :00 (two) Medical times Branch daily. rifAXIMin 2018-05- No [id number] 550mg Take 1 [facility] 550 mg 2-20 05-19 tablet by ity of tablet 00:00: 00:00 mouth 2 [place] 00 :00 (two) Medical times Branch daily. Pitavastati 2018-05- No [id number] 2mg Take 2 mg [facility] n (LIVALO) 2-20 05-19 by mouth ity of 2 mg Tab 00:00: 00:00 daily. [place] 00 :00 Medical Branch blood sugar 2018-05- No [id number] Use BID, [facility] diagnostic 2-20 05-19 DX E11.9 ity of (ACCU-CHEK 00:00: 00:00 ([place] GUIDE) 00 :00 upon Medical strip insurance Branch approval) hydrOXYzine 2018-05- No [id number] 50mg Take 1 [facility] 50 mg 2-20 05-19 tablet by ity of tablet 00:00: 00:00 mouth 3 [place] 00 :00 (three) Medical times Branch daily as needed for Itching. pantoprazol 2018-05- No [id number] 40mg Take 1 [facility] e 40 mg EC 2-20 05-19 tablet by ity of tablet 00:00: 00:00 mouth [place] 00 :00 daily. Medical Branch furosemide 2018-05- No [id number] 40mg Take 1 [facility] 40 mg 2-20 05-19 tablet by ity of tablet 00:00: 00:00 mouth [place] 00 :00 every Medical morning Branch and evening. metFORMIN 2018-05- No [id number] 500mg Take 1 [facility] 500 mg 2-20 05-19 tablet by ity of tablet 00:00: 00:00 mouth 2 [place] 00 :00 (two) Medical times Branch daily with meals. carvedilol 2018-05- No [id number] 3.125mg Take 1 [facility] 3.125 mg 2-20 05-19 tablet by ity o f tablet 00:00: 00:00 mouth 2 [place] 00 :00 (two) Medical times Branch daily with meals. spironolact 2018-05- No [id number] 25mg Take 1 [facility] one 25 mg 2-20 05-19 tablet by ity of tablet 00:00: 00:00 mouth 2 [place] 00 :00 (two) Medical times Branch daily. rifAXIMin 2018-05- No [id number] 550mg Take 1 [facility] 550 mg 2-20 05-19 tablet by ity of tablet 00:00: 00:00 mouth 2 [place] 00 :00 (two) Medical times Branch daily. Pitavastati 2018-05- No [id number] 2mg Take 2 mg [facility] n (LIVALO) 2-20 05-19 by mouth ity of 2 mg Tab 00:00: 00:00 daily. [place] 00 :00 Medical Branch blood sugar 2018-05- No [id number] Use BID, [facility] diagnostic 2-20 05-19 DX E11.9 ity of (ACCU-CHEK 00:00: 00:00 (Brand [place] GUIDE[place] 00 :00 upon Medical strip insurance Branch approval) hydrOXYzine 2018-05- No [id number] 50mg Take 1 [facility] 50 mg 2-20 10-14 tablet by ity of tablet 00:00: 00:00 mouth 3 [place] 00 :00 (three) Medical times Branch daily as needed for Itching. pantoprazol 2018-05- No [id number] 40mg Take 1 [facility] e 40 mg EC -10-14 tablet by ity of tablet 00:00: 00:00 mouth [place] 00 :00 daily. Medical Branch lisinopril 2018-05- No [id number] 20mg Take 1 [facility] 20 mg 2-08-04 tablet by ity of tablet 00:00: 00:00 mouth [place] 00 :00 daily. Medical Branch foLIC acid 2018-05- No [id number] 1mg Take 1 [facility] 1 mg tablet 07-18 tablet by it y of 00:00: 00:00 mouth [place] 00 :00 daily. Medical Branch foLIC acid 2018-05- No [id number] 1mg Take 1 [facility] 1 mg tablet 07-18 tablet by it y of 00:00: 00:00 mouth [place] 00 :00 daily. Medical Branch doxycycline 2019-0 Yes [id number] 100mg Take 1 [facility] 100 mg 8-29 tablet by ity of tablet 00:00: mouth (two) Medical times Branch daily. doxycycline 2019-0 Yes [id number] 100mg Take 1 [facility] 100 mg 8-29 tablet by ity of tablet 00:00: mouth 2 (two) Medical times Branch daily. doxycycline 2019-0 Yes [id number] 100mg Take 1 [facility] 100 mg 8-29 tablet by ity of tablet 00:00: mouth 2 (two) Medical times Branch daily. doxycycline 2019-0 Yes [id number] 100mg Take 1 [facility] 100 mg 8-29 tablet by ity of tablet 00:00: mouth 2 (two) Medical times Branch daily. doxycycline 2019-0 Yes [id number] 100mg Take 1 [facility] 100 mg 8-29 tablet by ity of tablet 00:00: mouth 2 (two) Medical times Branch daily. doxycycline 2019-0 Yes [id number] 100mg Take 1 [facility] 100 mg 8-29 tablet by ity of tablet 00:00: mouth 2 (two) Medical times Branch daily. doxycycline 2019-0 Yes [id number] 100mg Take 1 [facility] 100 mg 8-29 tablet by ity of tablet 00:00: mouth 2 (two) Medical times Branch daily. doxycycline Yes [id number] 100mg Take 1 [facility] 100 mg 8-29 tablet by ity of tablet 00:00: mouth (two) Medical times Branch daily. doxycycline 2018- Yes [id number] 100mg Take 1 [facility] 100 mg 8-29 tablet by ity of tablet 00:00: mouth 2 (two) Medical times Branch daily. doxycycline 2018- Yes [id number] 100mg Take 1 [facility] 100 mg 8-29 tablet by ity of tablet 00:00: mouth 2 (two) Medical times Branch daily. doxycycline 2018-2020- No [id number] 100mg Take 1 [facility] 100 mg 8-29 05-19 tablet by ity of tablet 00:00: 00:00 mouth 2 [place] 00 :00 (two) Medical times Branch daily. doxycycline 2018-2020- No [id number] 100mg Take 1 [facility] 100 mg 8-29 05-19 tablet by ity of tablet 00:00: 00:00 mouth 2 [place] 00 :00 (two) Medical times Branch daily. spironolact Yes [id number] 25mg Take 1 [facility] one 25 mg 8-07 tablet by ity o f tablet 00:00: mouth [place] (two) Medical times Branch daily. spironolact 2018-0 Yes [id number] 25mg Take 1 [facility] one 25 mg 8-07 tablet by ity o f tablet 00:00: mouth [place] (two) Medical times Branch daily. spironolact 2019-0 Yes [id number] 25mg Take 1 [facility] one 25 mg 8-07 tablet by ity o f tablet 00:00: mouth 2 [place] (two) Medical times Branch daily. spironolact 2019-0 Yes [id number] 25mg Take 1 [facility] one 25 mg 8-07 tablet by ity o f tablet 00:00: mouth 2 [place] (two) Medical times Branch daily. spironolact 2019-0 Yes [id number] 25mg Take 1 [facility] one 25 mg 8-07 tablet by ity o f tablet 00:00: mouth 2 [place] (two) Medical times Branch daily. spironolact 2019-0 Yes [id number] 25mg Take 1 [facility] one 25 mg 8-07 tablet by ity o f tablet 00:00: mouth (two) Medical times Branch daily. spironolact 2019-0 Yes [id number] 25mg Take 1 [facility] one 25 mg 8-07 tablet by ity o f tablet 00:00: mouth (two) Medical times Branch daily. spironolact 2019-0 Yes [id number] 25mg Take 1 [facility] one 25 mg 8-07 tablet by ity o f tablet 00:00: mouth (two) Medical times Branch daily. spironolact 2019-0 Yes [id number] 25mg Take 1 [facility] one 25 mg 8-07 tablet by ity o f tablet 00:00: mouth (two) Medical times Branch daily. spironolact 2018- Yes [id number] 25mg Take 1 [facility] one 25 mg 8-07 tablet by ity o f tablet 00:00: mouth (two) Medical times Branch daily. ALPRAZolam 2018- Yes [id number] 1mg Take 1 [facility] 1 mg tablet 7-22 tablet by ity of 00:00: mouth (two) Medical times Branch daily. Prn anxiety carvedilol 2018-0 Yes [id number] 3.125mg Take 1 [facility] 3.125 mg 7-22 tablet by ity of tablet 00:00: mouth (two) Medical times Branch daily with meals. foLIC acid 2018-0 Yes [id number] 1mg Take 1 [facility] 1 mg tablet 7-22 tablet by ity of 00:00: mouth 00 daily. Medical Branch furosemide 2018-0 Yes [id number] 40mg Take 1 [facility] 40 mg 7-22 tablet by ity of tablet 00:00: mouth 00 daily. Medical Branch hydrOXYzine 2018-0 Yes [id number] 50mg Take 1 [facility] 50 mg 7-22 tablet by ity of tablet 00:00: mouth 3 (three) Medical times Branch daily as needed for Itching. metFORMIN 2018-0 Yes [id number] 500mg Take 1 [facility] 500 mg 7-22 tablet by ity of tablet 00:00: mouth 2 (two) Medical times Branch daily with meals. pantoprazol 2019- Yes [id number] 40mg Take 1 [facility] e 40 mg EC 7-22 tablet by ity of tablet 00:00: mouth 00 daily. Medical Branch clobetasol 2018- Yes [id number] Apply to [facility] 0.05 % 7-22 area(s) 2 ity of cream 00:00: (two) [place] 00 times Medical daily. Branch triamcinolo Yes [id number] Apply to [facility] ne 7-22 affected ity of acetonide 00:00: area(s) 2 [place] 0.1 % cream 00 (two) Medical times Branch daily. ALPRAZolam Yes [id number] 1mg Take 1 [facility] 1 mg tablet 7-22 tablet by ity of 00:00: mouth 2 (two) Medical times Branch daily. Prn anxiety carvedilol 2018- Yes [id number] 3.125mg Take 1 [facility] 3.125 mg 7-22 tablet by ity of tablet 00:00: mouth 2 (two) Medical times Branch daily with meals. foLIC acid 2018- Yes [id number] 1mg Take 1 [facility] 1 mg tablet 7-22 tablet by ity of 00:00: mouth 00 daily. Medical Branch furosemide 2018-0 Yes [id number] 40mg Take 1 [facility] 40 mg 7-22 tablet by ity of tablet 00:00: mouth 00 daily. Medical Branch hydrOXYzine 0 Yes [id number] 50mg Take 1 [facility] 50 mg 7-22 tablet by ity of tablet 00:00: mouth 3 (three) Medical times Branch daily as needed for Itching. metFORMIN Yes [id number] 500mg Take 1 [facility] 500 mg 7-22 tablet by ity of tablet 00:00: mouth 2 (two) Medical times Branch daily with meals. pantoprazol 2018-0 Yes [id number] 40mg Take 1 [facility] e 40 mg EC 7-22 tablet by ity of tablet 00:00: mouth [place] 00 daily. Medical Branch clobetasol 2018- Yes [id number] Apply to [facility] 0.05 % 7-22 area(s) 2 ity of cream 00:00: (two) [place] 00 times Medical daily. Branch triamcinolo Yes [id number] Apply to [facility] ne 7-22 affected ity of acetonide 00:00: area(s) 2 [place] 0.1 % cream 00 (two) Medical times Branch daily. ALPRAZolam 2018- Yes [id number] 1mg Take 1 [facility] 1 mg tablet 7-22 tablet by ity of 00:00: mouth 2 (two) Medical times Branch daily. Prn anxiety carvedilol 2018- Yes [id number] 3.125mg Take 1 [facility] 3.125 mg 7-22 tablet by ity of tablet 00:00: mouth 2 (two) Medical times Branch daily with meals. foLIC acid 2018- Yes [id number] 1mg Take 1 [facility] 1 mg tablet 7-22 tablet by ity of 00:00: mouth 00 daily. Medical Branch furosemide 2018- Yes [id number] 40mg Take 1 [facility] 40 mg 7-22 tablet by ity of tablet 00:00: mouth 00 daily. Medical Branch hydrOXYzine Yes [id number] 50mg Take 1 [facility] 50 mg 7-22 tablet by ity of tablet 00:00: mouth 3 (three) Medical times Branch daily as needed for Itching. metFORMIN Yes [id number] 500mg Take 1 [facility] 500 mg 7-22 tablet by ity of tablet 00:00: mouth 2 (two) Medical times Branch daily with meals. pantoprazol 2018- Yes [id number] 40mg Take 1 [facility] e 40 mg EC 7-22 tablet by ity of tablet 00:00: mouth 00 daily. Medical Branch clobetasol Yes [id number] Apply to [facility] 0.05 % 7-22 area(s) 2 ity of cream 00:00: (two) [place] 00 times Medical daily. Branch triamcinolo Yes [id number] Apply to [facility] ne 7-22 affected ity of acetonide 00:00: area(s) 2 [place] 0.1 % cream 00 (two) Medical times Branch daily. ALPRAZolam 2018- Yes [id number] 1mg Take 1 [facility] 1 mg tablet 7-22 tablet by ity of 00:00: mouth 2 (two) Medical times Branch daily. Prn anxiety carvedilol Yes [id number] 3.125mg Take 1 [facility] 3.125 mg 7-22 tablet by ity of tablet 00:00: mouth 2 (two) Medical times Branch daily with meals. foLIC acid Yes [id number] 1mg Take 1 [facility] 1 mg tablet 7-22 tablet by ity of 00:00: mouth [place] 00 daily. Medical Branch furosemide 2018- Yes [id number] 40mg Take 1 [facility] 40 mg 7-22 tablet by ity of tablet 00:00: mouth [place] 00 daily. Medical Branch hydrOXYzine Yes [id number] 50mg Take 1 [facility] 50 mg 7-22 tablet by ity of tablet 00:00: mouth 3 00 (three) Medical times Branch daily as needed for Itching. metFORMIN Yes [id number] 500mg Take 1 [facility] 500 mg 7-22 tablet by ity of tablet 00:00: mouth 2 00 (two) Medical times Branch daily with meals. pantoprazol 2018- Yes [id number] 40mg Take 1 [facility] e 40 mg EC 7-22 tablet by ity of tablet 00:00: mouth [place] 00 daily. Medical Branch clobetasol Yes [id number] Apply to [facility] 0.05 % 7-22 area(s) 2 ity of cream 00:00: (two) [place] 00 times Medical daily. Branch triamcinolo Yes [id number] Apply to [facility] ne 7-22 affected ity of acetonide 00:00: area(s) 2 [place] 0.1 % cream 00 (two) Medical times Branch daily. ALPRAZolam Yes [id number] 1mg Take 1 [facility] 1 mg tablet 7-22 tablet by ity of 00:00: mouth 2 (two) Medical times Branch daily. Prn anxiety carvedilol 2018- Yes [id number] 3.125mg Take 1 [facility] 3.125 mg 7-22 tablet by ity of tablet 00:00: mouth 2 (two) Medical times Branch daily with meals. foLIC acid 2018- Yes [id number] 1mg Take 1 [facility] 1 mg tablet 7-22 tablet by ity of 00:00: mouth [place] 00 daily. Medical Branch hydrOXYzine Yes [id number] 50mg Take 1 [facility] 50 mg 7-22 tablet by ity of tablet 00:00: mouth 3 00 (three) Medical times Branch daily as needed for Itching. metFORMIN Yes [id number] 500mg Take 1 [facility] 500 mg 7-22 tablet by ity of tablet 00:00: mouth 2 [place] 00 (two) Medical times Branch daily with meals. pantoprazol 2018- Yes [id number] 40mg Take 1 [facility] e 40 mg EC 7-22 tablet by ity of tablet 00:00: mouth [place] 00 daily. Medical Branch clobetasol Yes [id number] Apply to [facility] 0.05 % 7-22 area(s) 2 ity of cream 00:00: (two) [place] 00 times Medical daily. Branch triamcinolo Yes [id number] Apply to [facility] ne 7-22 affected ity of acetonide 00:00: area(s) 2 [place] 0.1 % cream 00 (two) Medical times Branch daily. ALPRAZolam Yes [id number] 1mg Take 1 [facility] 1 mg tablet 7-22 tablet by ity of 00:00: mouth 2 (two) Medical times Branch daily. Prn anxiety carvedilol 2018- Yes [id number] 3.125mg Take 1 [facility] 3.125 mg 7-22 tablet by ity of tablet 00:00: mouth 2 (two) Medical times Branch daily with meals. foLIC acid Yes [id number] 1mg Take 1 [facility] 1 mg tablet 7-22 tablet by ity of 00:00: mouth 00 daily. Medical Branch hydrOXYzine Yes [id number] 50mg Take 1 [facility] 50 mg 7-22 tablet by ity of tablet 00:00: mouth 3 00 (three) Medical times Branch daily as needed for Itching. metFORMIN Yes [id number] 500mg Take 1 [facility] 500 mg 7-22 tablet by ity of tablet 00:00: mouth 2 (two) Medical times Branch daily with meals. pantoprazol Yes [id number] 40mg Take 1 [facility] e 40 mg EC 7-22 tablet by ity of tablet 00:00: mouth 00 daily. Medical Branch clobetasol Yes [id number] Apply to [facility] 0.05 % 7-22 area(s) 2 ity of cream 00:00: (two) [place] 00 times Medical daily. Branch triamcinolo Yes [id number] Apply to [facility] ne 7-22 affected ity of acetonide 00:00: area(s) 2 [place] 0.1 % cream 00 (two) Medical times Branch daily. ALPRAZolam Yes [id number] 1mg Take 1 [facility] 1 mg tablet 7-22 tablet by ity of 00:00: mouth 2 (two) Medical times Branch daily. Prn anxiety carvedilol 2018- Yes [id number] 3.125mg Take 1 [facility] 3.125 mg 7-22 tablet by ity of tablet 00:00: mouth 2 (two) Medical times Branch daily with meals. foLIC acid Yes [id number] 1mg Take 1 [facility] 1 mg tablet 7-22 tablet by ity of 00:00: mouth 00 daily. Medical Branch hydrOXYzine Yes [id number] 50mg Take 1 [facility] 50 mg 7-22 tablet by ity of tablet 00:00: mouth 3 (three) Medical times Branch daily as needed for Itching. metFORMIN 2018- Yes [id number] 500mg Take 1 [facility] 500 mg 7-22 tablet by ity of tablet 00:00: mouth 2 (two) Medical times Branch daily with meals. pantoprazol Yes [id number] 40mg Take 1 [facility] e 40 mg EC 7-22 tablet by ity of tablet 00:00: mouth 00 daily. Medical Branch clobetasol Yes [id number] Apply to [facility] 0.05 % 7-22 area(s) 2 ity of cream 00:00: (two) times Medical daily. Branch triamcinolo Yes [id number] Apply to [facility] ne 7-22 affected ity of acetonide 00:00: area(s) 2 [place] 0.1 % cream 00 (two) Medical times Branch daily. ALPRAZolam Yes [id number] 1mg Take 1 [facility] 1 mg tablet 7-22 tablet by ity of 00:00: mouth 2 (two) Medical times Branch daily. Prn anxiety carvedilol 2018- Yes [id number] 3.125mg Take 1 [facility] 3.125 mg 7-22 tablet by ity of tablet 00:00: mouth 2 (two) Medical times Branch daily with meals. foLIC acid Yes [id number] 1mg Take 1 [facility] 1 mg tablet 7-22 tablet by ity of 00:00: mouth 00 daily. Medical Branch hydrOXYzine Yes [id number] 50mg Take 1 [facility] 50 mg 7-22 tablet by ity of tablet 00:00: mouth 3 (three) Medical times Branch daily as needed for Itching. metFORMIN Yes [id number] 500mg Take 1 [facility] 500 mg 7-22 tablet by ity of tablet 00:00: mouth 2 (two) Medical times Branch daily with meals. pantoprazol Yes [id number] 40mg Take 1 [facility] e 40 mg EC 7-22 tablet by ity of tablet 00:00: mouth 00 daily. Medical Branch clobetasol Yes [id number] Apply to [facility] 0.05 % 7-22 area(s) 2 ity of cream 00:00: (two) times Medical daily. Branch triamcinolo Yes [id number] Apply to [facility] ne 7-22 affected ity of acetonide 00:00: area(s) 2 [place] 0.1 % cream 00 (two) Medical times Branch daily. ALPRAZolam Yes [id number] 1mg Take 1 [facility] 1 mg tablet 7-22 tablet by ity of 00:00: mouth 2 (two) Medical times Branch daily. Prn anxiety carvedilol 2018- Yes [id number] 3.125mg Take 1 [facility] 3.125 mg 7-22 tablet by ity of tablet 00:00: mouth 2 (two) Medical times Branch daily with meals. foLIC acid Yes [id number] 1mg Take 1 [facility] 1 mg tablet 7-22 tablet by ity of 00:00: mouth 00 daily. Medical Branch hydrOXYzine Yes [id number] 50mg Take 1 [facility] 50 mg 7-22 tablet by ity of tablet 00:00: mouth 3 (three) Medical times Branch daily as needed for Itching. metFORMIN Yes [id number] 500mg Take 1 [facility] 500 mg 7-22 tablet by ity of tablet 00:00: mouth 2 (two) Medical times Branch daily with meals. pantoprazol Yes [id number] 40mg Take 1 [facility] e 40 mg EC 7-22 tablet by ity of tablet 00:00: mouth 00 daily. Medical Branch clobetasol Yes [id number] Apply to [facility] 0.05 % 7-22 area(s) 2 ity of cream 00:00: (two) [place] 00 times Medical daily. Branch triamcinolo Yes [id number] Apply to [facility] ne 7-22 affected ity of acetonide 00:00: area(s) 2 [place] 0.1 % cream 00 (two) Medical times Branch daily. ALPRAZolam Yes [id number] 1mg Take 1 [facility] 1 mg tablet 7-22 tablet by ity of 00:00: mouth 2 [place] 00 (two) Medical times Branch daily. Prn anxiety carvedilol Yes [id number] 3.125mg Take 1 [facility] 3.125 mg 7-22 tablet by ity of tablet 00:00: mouth 2 (two) Medical times Branch daily with meals. foLIC acid Yes [id number] 1mg Take 1 [facility] 1 mg tablet 7-22 tablet by ity of 00:00: mouth [place] 00 daily. Medical Branch hydrOXYzine Yes [id number] 50mg Take 1 [facility] 50 mg 7-22 tablet by ity of tablet 00:00: mouth 3 [place] (three) Medical times Branch daily as needed for Itching. metFORMIN Yes [id number] 500mg Take 1 [facility] 500 mg 7-22 tablet by ity of tablet 00:00: mouth 2 (two) Medical times Branch daily with meals. pantoprazol Yes [id number] 40mg Take 1 [facility] e 40 mg EC 7-22 tablet by ity of tablet 00:00: mouth [place] 00 daily. Medical Branch clobetasol Yes [id number] Apply to [facility] 0.05 % 7-22 area(s) 2 ity of cream 00:00: (two) [place] 00 times Medical daily. Branch triamcinolo Yes [id number] Apply to [facility] ne 7-22 affected ity of acetonide 00:00: area(s) 2 [place] 0.1 % cream 00 (two) Medical times Branch daily. ALPRAZolam Yes [id number] 1mg Take 1 [facility] 1 mg tablet 7-22 tablet by ity of 00:00: mouth 2 [place] 00 (two) Medical times Branch daily. Prn anxiety carvedilol 2018- Yes [id number] 3.125mg Take 1 [facility] 3.125 mg 7-22 tablet by ity of tablet 00:00: mouth 2 (two) Medical times Branch daily with meals. foLIC acid Yes [id number] 1mg Take 1 [facility] 1 mg tablet 7-22 tablet by ity of 00:00: mouth [place] 00 daily. Medical Branch hydrOXYzine 2018- Yes [id number] 50mg Take 1 [facility] 50 mg 7-22 tablet by ity of tablet 00:00: mouth 3 (three) Medical times Branch daily as needed for Itching. metFORMIN Yes [id number] 500mg Take 1 [facility] 500 mg 7-22 tablet by ity of tablet 00:00: mouth 2 (two) Medical times Branch daily with meals. pantoprazol 2018- Yes [id number] 40mg Take 1 [facility] e 40 mg EC 7-22 tablet by ity of tablet 00:00: mouth [place] 00 daily. Medical Branch clobetasol Yes [id number] Apply to [facility] 0.05 % 7-22 area(s) 2 ity of cream 00:00: (two) [place] 00 times Medical daily. Branch triamcinolo Yes [id number] Apply to [facility] ne 7-22 affected ity of acetonide 00:00: area(s) 2 [place] 0.1 % cream 00 (two) Medical times Branch daily. ALPRAZolam Yes [id number] 1mg Take 1 [facility] 1 mg tablet 7-22 tablet by ity of 00:00: mouth 2 (two) Medical times Branch daily. Prn anxiety carvedilol 2018- Yes [id number] 3.125mg Take 1 [facility] 3.125 mg 7-22 tablet by ity of tablet 00:00: mouth 2 00 (two) Medical times Branch daily with meals. foLIC acid 2018- Yes [id number] 1mg Take 1 [facility] 1 mg tablet 7-22 tablet by ity of 00:00: mouth [place] 00 daily. Medical Branch hydrOXYzine Yes [id number] 50mg Take 1 [facility] 50 mg 7-22 tablet by ity of tablet 00:00: mouth 3 00 (three) Medical times Branch daily as needed for Itching. metFORMIN 2018- Yes [id number] 500mg Take 1 [facility] 500 mg 7-22 tablet by ity of tablet 00:00: mouth 2 (two) Medical times Branch daily with meals. pantoprazol 2019- Yes [id number] 40mg Take 1 [facility] e 40 mg EC 7-22 tablet by ity of tablet 00:00: mouth [place] 00 daily. Medical Branch clobetasol 2018- Yes [id number] Apply to [facility] 0.05 % 7-22 area(s) 2 ity of cream 00:00: (two) [place] 00 times Medical daily. Branch triamcinolo 2018- Yes [id number] Apply to [facility] ne 7-22 affected ity of acetonide 00:00: area(s) 2 [place] 0.1 % cream 00 (two) Medical times Branch daily. ALPRAZolam 2018- Yes [id number] 1mg Take 1 [facility] 1 mg tablet 7-22 tablet by ity of 00:00: mouth 2 (two) Medical times Branch daily. Prn anxiety carvedilol 2018- Yes [id number] 3.125mg Take 1 [facility] 3.125 mg 7-22 tablet by ity of tablet 00:00: mouth 2 (two) Medical times Branch daily with meals. foLIC acid 2018- Yes [id number] 1mg Take 1 [facility] 1 mg tablet 7-22 tablet by ity of 00:00: mouth [place] 00 daily. Medical Branch furosemide 2018- Yes [id number] 40mg Take 1 [facility] 40 mg 7-22 tablet by ity of tablet 00:00: mouth [place] 00 daily. Medical Branch hydrOXYzine 2018- Yes [id number] 50mg Take 1 [facility] 50 mg 7-22 tablet by ity of tablet 00:00: mouth 3 00 (three) Medical times Branch daily as needed for Itching. metFORMIN 2018- Yes [id number] 500mg Take 1 [facility] 500 mg 7-22 tablet by ity of tablet 00:00: mouth 2 00 (two) Medical times Branch daily with meals. pantoprazol 2018- Yes [id number] 40mg Take 1 [facility] e 40 mg EC 7-22 tablet by ity of tablet 00:00: mouth [place] 00 daily. Medical Branch spironolact 2018- Yes [id number] 25mg Take 1 [facility] one 25 mg 7-22 tablet by ity o f tablet 00:00: mouth 2 [place] 00 (two) Medical times Branch daily. clobetasol Yes [id number] Apply to [facility] 0.05 % 7-22 area(s) 2 ity of cream 00:00: (two) [place] 00 times Medical daily. Branch triamcinolo Yes [id number] Apply to [facility] ne 7-22 affected ity of acetonide 00:00: area(s) 2 [place] 0.1 % cream 00 (two) Medical times Branch daily. furosemide 2019- No [id number] 40mg Take 1 [facility] 40 mg -17 01- tablet by ity of tablet 00:00: 00:00 mouth [place] 00 :00 daily. Medical Branch furosemide 2019- No [id number] 40mg Take 1 [facility] 40 mg -17 01- tablet by ity of tablet 00:00: 00:00 mouth [place] 00 :00 daily. Medical Branch spironolact 2018- No [id number] 25mg Take 1 [facility] one 25 mg 12-17- tablet by ity of tablet 00:00: 00:00 mouth 2 [place] 00 :00 (two) Medical times Branch daily. Pitavastati Yes 2mg Take 2 mg U nivers n (LIVALO) 6-18 by mouth ity o f 2 mg Tab 16:18: daily. [address] Pitavastati Yes 2mg Take 2 mg U nivers n (LIVALO) 6-18 by mouth ity o f 2 mg Tab 16:18: daily. [address] Pitavastati Yes 2mg Take 2 mg U nivers n (LIVALO) 6-18 by mouth ity o f 2 mg Tab 16:18: daily. [address] Pitavastati Yes 2mg Take 2 mg U nivers n (LIVALO) 6-18 by mouth ity o f 2 mg Tab 16:18: daily. [address] Pitavastati Yes 2mg Take 2 mg U nivers n (LIVALO) 6-18 by mouth ity o f 2 mg Tab 16:18: daily. [address] Pitavastati 0 Yes 2mg Take 2 mg U nivers n (LIVALO) 6-18 by mouth ity o f 2 mg Tab 16:18: daily. [address] Pitavastati 2019-0 Yes 2mg Take 2 mg U nivers n (LIVALO) 6-18 by mouth ity o f 2 mg Tab 16:18: daily. [address] Pitavastati 2019-0 Yes 2mg Take 2 mg U nivers n (LIVALO) 6-18 by mouth ity o f 2 mg Tab 16:18: daily. [address] Pitavastati 2019-0 Yes 2mg Take 2 mg U nivers n (LIVALO) 6-18 by mouth ity o f 2 mg Tab 16:18: daily. [address] Pitavastati 2019-0 Yes 2mg Take 2 mg U nivers n (LIVALO) 6-18 by mouth ity o f 2 mg Tab 16:18: daily. [address] Pitavastati 2019-0 Yes 2mg Take 2 mg U nivers n (LIVALO) 6-18 by mouth ity o f 2 mg Tab 16:18: daily. [address] Pitavastati 2019-0 Yes 2mg Take 2 mg U nivers n (LIVALO) 6-18 by mouth ity o f 2 mg Tab 16:18: daily. [address] Pitavastati 2019-0 Yes 2mg Take 2 mg U nivers n (LIVALO) 6-18 by mouth ity o f 2 mg Tab 16:18: daily. [address] traMADOL 2019-0 Yes [id number] 50mg Take 1 Un epifanio (ULTRAM) 50 6-18 tablet by ity of mg tablet 00:00: mouth [place] 00 every 6 Medical (six) Branch hours as needed for Pain (scale 4-6). traMADOL 2019-0 Yes [id number] 50mg Take 1 Un epifanio (ULTRAM) 50 6-18 tablet by ity of mg tablet 00:00: mouth [place] 00 every 6 Medical (six) Branch hours as needed for Pain (scale 4-6). traMADOL 2019-0 Yes [id number] 50mg Take 1 Un epifanio (ULTRAM) 50 6-18 tablet by ity of mg tablet 00:00: mouth [place] 00 every 6 Medical (six) Branch hours as needed for Pain (scale 4-6). traMADOL 2019-0 Yes [id number] 50mg Take 1 Un epifanio (ULTRAM) 50 6-18 tablet by ity of mg tablet 00:00: mouth [place] 00 every 6 Medical (six) Branch hours as needed for Pain (scale 4-6). traMADOL 2019-0 Yes [id number] 50mg Take 1 Un epifanio (ULTRAM) 50 6-18 tablet by ity of mg tablet 00:00: mouth [place] 00 every 6 Medical (six) Branch hours as needed for Pain (scale 4-6). traMADOL 2019-0 Yes [id number] 50mg Take 1 Un epifanio (ULTRAM) 50 6-18 tablet by ity of mg tablet 00:00: mouth [place] 00 every 6 Medical (six) Branch hours as needed for Pain (scale 4-6). traMADOL 2019-0 Yes [id number] 50mg Take 1 Un epifanio (ULTRAM) 50 6-18 tablet by ity of mg tablet 00:00: mouth [place] 00 every 6 Medical (six) Branch hours as needed for Pain (scale 4-6). traMADOL 2019-0 Yes [id number] 50mg Take 1 Un epifanio (ULTRAM) 50 6-18 tablet by ity of mg tablet 00:00: mouth [place] 00 every 6 Medical (six) Branch hours as needed for Pain (scale 4-6). traMADOL 2019-0 Yes [id number] 50mg Take 1 Un epifanio (ULTRAM) 50 6-18 tablet by ity of mg tablet 00:00: mouth [place] 00 every 6 Medical (six) Branch hours as needed for Pain (scale 4-6). traMADOL 2019-0 Yes [id number] 50mg Take 1 Un epifanio (ULTRAM) 50 6-18 tablet by ity of mg tablet 00:00: mouth [place] 00 every 6 Medical (six) Branch hours as needed for Pain (scale 4-6). traMADOL 2019-0 Yes [id number] 50mg Take 1 Un epifanio (ULTRAM) 50 6-18 tablet by ity of mg tablet 00:00: mouth [place] 00 every 6 Medical (six) Branch hours as needed for Pain (scale 4-6). traMADOL 2019-0 Yes [id number] 50mg Take 1 Un epifanio (ULTRAM) 50 6-18 tablet by ity of mg tablet 00:00: mouth [place] 00 every 6 Medical (six) Branch hours as needed for Pain (scale 4-6). traMADOL 2019-0 Yes [id number] 50mg Take 1 Un epifanio (ULTRAM) 50 6-18 tablet by ity of mg tablet 00:00: mouth [place] 00 every 6 Medical (six) Branch hours as needed for Pain (scale 4-6). traMADOL 2019-0 Yes [id number] 50mg Take 1 Un epifanio (ULTRAM) 50 6-18 tablet by ity of mg tablet 00:00: mouth [place] 00 every 6 Medical (six) Branch hours as needed for Pain (scale 4-6). traMADOL 2019-0 Yes [id number] 50mg Take 1 Un epifanio (ULTRAM) 50 6-18 tablet by ity of mg tablet 00:00: mouth [place] 00 every 6 Medical (six) Branch hours as needed for Pain (scale 4-6). traMADOL 2019-0 Yes [id number] 50mg Take 1 Un epifanio (ULTRAM) 50 6-18 tablet by ity of mg tablet 00:00: mouth [place] 00 every 6 Medical (six) Branch hours as needed for Pain (scale 4-6). traMADOL 2019-0 Yes [id number] 50mg Take 1 Un epifanio (ULTRAM) 50 6-18 tablet by ity of mg tablet 00:00: mouth [place] 00 every 6 Medical (six) Branch hours as needed for Pain (scale 4-6). traMADOL 2019-0 Yes [id number] 50mg Take 1 Un epifanio (ULTRAM) 50 6-18 tablet by ity of mg tablet 00:00: mouth [place] 00 every 6 Medical (six) Branch hours as needed for Pain (scale 4-6). traMADOL 2019-0 Yes [id number] 50mg Take 1 Un epifanio (ULTRAM) 50 6-18 tablet by ity of mg tablet 00:00: mouth [place] 00 every 6 Medical (six) Branch hours as needed for Pain (scale 4-6). traMADOL 2019-0 Yes [id number] 50mg Take 1 Un epifanio (ULTRAM) 50 6-18 tablet by ity of mg tablet 00:00: mouth [place] 00 every 6 Medical (six) Branch hours as needed for Pain (scale 4-6). traMADOL 2019-2020- No [id number] 50mg Take 1 U nivers (ULTRAM) 50 6-18 05-19 tablet by it y of mg tablet 00:00: 00:00 mouth [place] 00 :00 every 6 Medical (six) Branch hours as needed for Pain (scale 4-6). traMADOL 2020- No [id number] 50mg Take 1 U nivers (ULTRAM) 50 6-18 05-19 tablet by it y of mg tablet 00:00: 00:00 mouth [place] 00 :00 every 6 Medical (six) Branch hours as needed for Pain (scale 4-6). folic acid Yes 1mg QD Take [address] [facility] (FOLVITE) 1 6-13 by mouth [facility] - MG tablet 00:00: daily . Medic al 00 [place] lactulose Yes TK [address] [facility] (CHRONULAC) 5-04 PO TID [facility] - 10 gram/15 00:00: Medical mL solution 00 [place] blood sugar Yes [id number] Use BID, [facility] diagnostic 4-23 DX E11.9 ity o f (ACCU-CHEK 00:00: (Brand [place] GUIDE) 00 upon Medical strip insurance Branch approval) Lancets Yes [id number] Use BID, U nivers Misc 4-23 DX E11.9 ity of 00:00: (Brand [place] 00 upon Medical insurance Branch approval) Blood-Gluco Yes [id number] Use BID, Univers se Meter 4-23 DX E11.9 ity of (ACCU-CHEK 00:00: (Brand [place] GUIDE 00 upon Medical GLUCOSE insurance Branch METER) Misc approval) ACCU-CHEK GUIDE blood sugar Yes [id number] Use BID, [facility] diagnostic 4-23 DX E11.9 ity o f (ACCU-CHEK 00:00: (Brand [place] GUIDE) 00 upon Medical strip insurance Branch approval) Lancets Yes [id number] Use BID, U nivers Misc 4-23 DX E11.9 ity of 00:00: (Brand [place] 00 upon Medical insurance Branch approval) Blood-Gluco Yes [id number] Use BID, [facility] se Meter 4-23 DX E11.9 ity of (ACCU-CHEK 00:00: (Brand [place] GUIDE 00 upon Medical GLUCOSE insurance Branch METER) Misc approval) ACCU-CHEK GUIDE blood sugar Yes [id number] Use BID, [facility] diagnostic 4-23 DX E11.9 ity o f (ACCU-CHEK 00:00: (Brand [place] GUIDE) 00 upon Medical strip insurance Branch approval) Lancets 2019- Yes [id number] Use BID, U nivers Misc 4-23 DX E11.9 ity of 00:00: (Brand [place] 00 upon Medical insurance Branch approval) Blood-Gluco 2019- Yes [id number] Use BID, [facility] se Meter 4-23 DX E11.9 ity of (ACCU-CHEK 00:00: (Brand [place] GUIDE 00 upon Medical GLUCOSE insurance Branch METER) Misc approval) ACCU-CHEK GUIDE blood sugar 2019- Yes [id number] Use BID, [facility] diagnostic 4-23 DX E11.9 ity o f (ACCU-CHEK 00:00: (Brand [place] GUIDE) 00 upon Medical strip insurance Branch approval) Lancets 2019- Yes [id number] Use BID, U nivers Misc 4-23 DX E11.9 ity of 00:00: (Brand [place] 00 upon Medical insurance Branch approval) Blood-Gluco 2019- Yes [id number] Use BID, [facility] se Meter 4-23 DX E11.9 ity of (ACCU-CHEK 00:00: (Brand [place] GUIDE 00 upon Medical GLUCOSE insurance Branch METER) Misc approval) ACCU-CHEK GUIDE blood sugar 2019-0 Yes [id number] Use BID, [facility] diagnostic 4-23 DX E11.9 ity o f (ACCU-CHEK 00:00: (Brand [place] GUIDE) 00 upon Medical strip insurance Branch approval) Lancets 2019- Yes [id number] Use BID, U nivers Misc 4-23 DX E11.9 ity of 00:00: (Brand [place] 00 upon Medical insurance Branch approval) Blood-Gluco 2019- Yes [id number] Use BID, [facility] se Meter 4-23 DX E11.9 ity of (ACCU-CHEK 00:00: (Brand [place] GUIDE 00 upon Medical GLUCOSE insurance Branch METER) Misc approval) ACCU-CHEK GUIDE blood sugar 2019-0 Yes [id number] Use BID, [facility] diagnostic 4-23 DX E11.9 ity o f (ACCU-CHEK 00:00: (Brand [place] GUIDE) 00 upon Medical strip insurance Branch approval) Lancets 2019- Yes [id number] Use BID, U nivers Misc 4-23 DX E11.9 ity of 00:00: (Brand [place] 00 upon Medical insurance Branch approval) Blood-Gluco 2019- Yes [id number] Use BID, [facility] se Meter 4-23 DX E11.9 ity of (ACCU-CHEK 00:00: (Brand [place] GUIDE 00 upon Medical GLUCOSE insurance Branch METER) Misc approval) ACCU-CHEK GUIDE blood sugar 2019- Yes [id number] Use BID, [facility] diagnostic 4-23 DX E11.9 ity o f (ACCU-CHEK 00:00: (Brand [place] GUIDE) 00 upon Medical strip insurance Branch approval) Lancets 2019 Yes [id number] Use BID, U nivers Misc 4-23 DX E11.9 ity of 00:00: (Brand [place] 00 upon Medical insurance Branch approval) Blood-Gluco 2018- Yes [id number] Use BID, [facility] se Meter 4-23 DX E11.9 ity of (ACCU-CHEK 00:00: (Brand [place] GUIDE 00 upon Medical GLUCOSE insurance Branch METER) Misc approval) ACCU-CHEK GUIDE blood sugar 2018- Yes [id number] Use BID, [facility] diagnostic 4-23 DX E11.9 ity o f (ACCU-CHEK 00:00: (Brand [place] GUIDE) 00 upon Medical strip insurance Branch approval) Lancets 2019- Yes [id number] Use BID, U nivers Misc 4-23 DX E11.9 ity of 00:00: (Brand [place] 00 upon Medical insurance Branch approval) Blood-Gluco 2018- Yes [id number] Use BID, [facility] se Meter 423 DX E11.9 ity of (ACCU-CHEK 00:00: (Brand [place] GUIDE 00 upon Medical GLUCOSE insurance Branch METER) Misc approval) ACCU-CHEK GUIDE blood sugar 2019- Yes [id number] Use BID, [facility] diagnostic 4-23 DX E11.9 ity o f (ACCU-CHEK 00:00: (Brand [place] GUIDE) 00 upon Medical strip insurance Branch approval) Lancets 2019 Yes [id number] Use BID, U nivers Misc 4-23 DX E11.9 ity of 00:00: (Brand [place] 00 upon Medical insurance Branch approval) Blood-Gluco 2019- Yes [id number] Use BID, [facility] se Meter 4-23 DX E11.9 ity of (ACCU-CHEK 00:00: (Brand [place] GUIDE 00 upon Medical GLUCOSE insurance Branch METER) Misc approval) ACCU-CHEK GUIDE blood sugar 2019- Yes [id number] Use BID, [facility] diagnostic 4-23 DX E11.9 ity o f (ACCU-CHEK 00:00: (Brand [place] GUIDE) 00 upon Medical strip insurance Branch approval) Lancets 2019 Yes [id number] Use BID, U nivers Misc 4-23 DX E11.9 ity of 00:00: (Brand [place] 00 upon Medical insurance Branch approval) Blood-Gluco 2019 Yes [id number] Use BID, [facility] se Meter 4-23 DX E11.9 ity of (ACCU-CHEK 00:00: (Brand [place] GUIDE 00 upon Medical GLUCOSE insurance Branch METER) Misc approval) ACCU-CHEK GUIDE blood sugar Yes [id number] Use BID, [facility] diagnostic 4-23 DX E11.9 ity o f (ACCU-CHEK 00:00: (Brand [place] GUIDE) 00 upon Medical strip insurance Branch approval) Lancets 2019 Yes [id number] Use BID, U nivers Misc -23 DX E11.9 ity of 00:00: (Brand [place] 00 upon Medical insurance Branch approval) Blood-Gluco Yes [id number] Use BID, [facility] se Meter -23 DX E11.9 ity of (ACCU-CHEK 00:00: (Brand [place] GUIDE 00 upon Medical GLUCOSE insurance Branch METER) Misc approval) ACCU-CHEK GUIDE Blood-Gluco Yes [id number] Use BID, [facility] se Meter 4-23 DX E11.9 ity of (ACCU-CHEK 00:00: (Brand [place] GUIDE 00 upon Medical GLUCOSE insurance Branch METER) Misc approval) ACCU-CHEK GUIDE Blood-Gluco Yes [id number] Use BID, [facility] se Meter 4-23 DX E11.9 ity of (ACCU-CHEK 00:00: (Brand [place] GUIDE 00 upon Medical GLUCOSE insurance Branch METER) Misc approval) ACCU-CHEK GUIDE Blood-Gluco Yes [id number] Use BID, [facility] se Meter 4-23 DX E11.9 ity of (ACCU-CHEK 00:00: (Brand [place] GUIDE 00 upon Medical GLUCOSE insurance Branch METER) Misc approval) ACCU-CHEK GUIDE Blood-Gluco 2019- Yes [id number] Use BID, [facility] se Meter -23 DX E11.9 ity of (ACCU-CHEK 00:00: (Brand [place] GUIDE 00 upon Medical GLUCOSE insurance Branch METER) Misc approval) ACCU-CHEK GUIDE Blood-Gluco 2018- Yes [id number] Use BID, [facility] se Meter -23 DX E11.9 ity of (ACCU-CHEK 00:00: (Brand [place] GUIDE 00 upon Medical GLUCOSE insurance Branch METER) Misc approval) ACCU-CHEK GUIDE Blood-Gluco 2018- Yes [id number] Use BID, [facility] se Meter 23 DX E11.9 ity of (ACCU-CHEK 00:00: (Brand [place] GUIDE 00 upon Medical GLUCOSE insurance Branch METER) Misc approval) ACCU-CHEK GUIDE Blood-Gluco Yes [id number] Use BID, [facility] se Meter 23 DX E11.9 ity of (ACCU-CHEK 00:00: (Brand [place] GUIDE 00 upon Medical GLUCOSE insurance Branch METER) Misc approval) ACCU-CHEK GUIDE Blood-Gluco 2018- Yes [id number] Use BID, [facility] se Meter 23 DX E11.9 ity of (ACCU-CHEK 00:00: (Brand [place] GUIDE 00 upon Medical GLUCOSE insurance Branch METER) Misc approval) ACCU-CHEK GUIDE blood sugar 2018- Yes [id number] Use BID, [facility] diagnostic 4-23 DX E11.9 ity o f (ACCU-CHEK 00:00: (Brand [place] GUIDE) 00 upon Medical strip insurance Branch approval) Lancets 2019- Yes [id number] Use BID, U nivers Misc -23 DX E11.9 ity of 00:00: (Brand [place] 00 upon Medical insurance Branch approval) Blood-Gluco 2019- Yes [id number] Use BID, [facility] se Meter -23 DX E11.9 ity of (ACCU-CHEK 00:00: (Brand [place] GUIDE 00 upon Medical GLUCOSE insurance Branch METER) Misc approval) ACCU-CHEK GUIDE Blood-Gluco 2019-2020- No [id number] Use BID, [facility] se Meter 09-18-19 DX E11.9 ity of (ACCU-CHEK 00:00: 00:00 ([place] 00 :00 upon Medical GLUCOSE insurance Branch METER) Misc approval) ACCU-CHEK GUIDE Blood-Gluco 2018-1- No [id number] Use BID, [facility] se Meter 09-18 05-19 DX E11.9 ity of (ACCU-CHEK 00:00: 00:00 ([place] GU[place] 00 :00 upon Medical GLUCOSE insurance Branch METER) Misc approval) ACCU-CHEK GUIDE lactulose 2019-0 Yes [id number] 15mL Take 15 mL [facility] 10 gram/15 4-08 by mouth 3 ity of mL solution 00:00: (three) [place] 00 times Medical daily. Branch lactulose 2019-0 Yes [id number] 15mL Take 15 mL [facility] 10 gram/15 4-08 by mouth 3 ity of mL solution 00:00: (three) [place] 00 times Medical daily. Branch lactulose 2019-0 Yes [id number] 15mL Take 15 mL [facility] 10 gram/15 4-08 by mouth 3 ity of mL solution 00:00: (three) [place] 00 times Medical daily. Branch lactulose 2019-0 Yes [id number] 15mL Take 15 mL [facility] 10 gram/15 4-08 by mouth 3 ity of mL solution 00:00: (three) [place] 00 times Medical daily. Branch lactulose 2019-0 Yes [id number] 15mL Take 15 mL [facility] 10 gram/15 4-08 by mouth 3 ity of mL solution 00:00: (three) [place] 00 times Medical daily. Branch lactulose 2019-0 Yes [id number] 15mL Take 15 mL [facility] 10 gram/15 4-08 by mouth 3 ity of mL solution 00:00: (three) [place] 00 times Medical daily. Branch lactulose 2019-0 Yes [id number] 15mL Take 15 mL [facility] 10 gram/15 4-08 by mouth 3 ity of mL solution 00:00: (three) [place] 00 times Medical daily. Branch lactulose 2019-0 Yes [id number] 15mL Take 15 mL [facility] 10 gram/15 4-08 by mouth 3 ity of mL solution 00:00: (three) [place] 00 times Medical daily. Branch lactulose 2019-0 Yes [id number] 15mL Take 15 mL [facility] 10 gram/15 4-08 by mouth 3 ity of mL solution 00:00: (three) [place] 00 times Medical daily. Branch lactulose 2019-0 Yes [id number] 15mL Take 15 mL [facility] 10 gram/15 4-08 by mouth 3 ity of mL solution 00:00: (three) [place] 00 times Medical daily. Branch lactulose 2019-0 Yes [id number] 15mL Take 15 mL [facility] 10 gram/15 4-08 by mouth 3 ity of mL solution 00:00: (three) [place] 00 times Medical daily. Branch lactulose 2019-0 Yes [id number] 15mL Take 15 mL [facility] 10 gram/15 4-08 by mouth 3 ity of mL solution 00:00: (three) Bryce as 00 times Medical daily. Branch lactulose 2019-0 Yes [id number] 15mL Take 15 mL Univers 10 gram/15 4-08 by mouth 3 ity of mL solution 00:00: (three) [place] as 00 times Medical daily. Branch furosemide 2019-0 Yes [id number] 40mg Take 1 Univers 40 mg 2-12 tablet by ity of tablet 00:00: mouth [place] 00 every Medical morning Branch and evening. furosemide 2019-0 Yes [id number] 40mg Take 1 Univers 40 mg 2-12 tablet by ity of tablet 00:00: mouth [place] 00 every Medical morning Branch and evening. furosemide 2019-0 Yes [id number] 40mg Take 1 Univers 40 mg 2-12 tablet by ity of tablet 00:00: mouth [place] 00 every Medical morning Branch and evening. furosemide 2019-0 Yes [id number] 40mg Take 1 Univers 40 mg 2-12 tablet by ity of tablet 00:00: mouth [place] 00 every Medical morning Branch and evening. furosemide 2019-0 Yes [id number] 40mg Take 1 Univers 40 mg 2-12 tablet by ity of tablet 00:00: mouth [place] 00 every Medical morning Branch and evening. furosemide 2019-0 Yes [id number] 40mg Take 1 Univers 40 mg 2-12 tablet by ity of tablet 00:00: mouth [place] 00 every Medical morning Branch and evening. furosemide 2019-0 Yes [id number] 40mg Take 1 Univers 40 mg 2-12 tablet by ity of tablet 00:00: mouth [place] 00 every Medical morning Branch and evening. furosemide 2019-0 Yes [id number] 40mg Take 1 Univers 40 mg 2-12 tablet by ity of tablet 00:00: mouth [place] 00 every Medical morning Branch and evening. furosemide 2018- Yes [id number] 40mg Take 1 Univers 40 mg 2-12 tablet by ity of tablet 00:00: mouth [place] 00 every Medical morning Branch and evening. furosemide 2018- Yes [id number] 40mg Take 1 [facility] 40 mg 2-12 tablet by ity of tablet 00:00: mouth [place] 00 every Medical morning Branch and evening. furosemide 2018- Yes [id number] 40mg Take 1 Univers 40 mg 2-12 tablet by ity of tablet 00:00: mouth [place] 00 every Medical morning Branch and evening. furosemide 2018- Yes [id number] 40mg Take 1 Univers 40 mg 2-12 tablet by ity of tablet 00:00: mouth [place] 00 every Medical morning Branch and evening. furosemide 2018- Yes [id number] 40mg Take 1 Univers 40 mg 2-12 tablet by ity of tablet 00:00: mouth [place] 00 every Medical morning Branch and evening. metFORMIN 2020- No 500mg Take 500 [facility] [...] . Medi jeevan MG tablet 00 Center lisinopril 2018- Yes [id number] 20mg Take 1 Univers 20 mg 2-06 tablet by ity of tablet 00:00: mouth [place] 00 daily. Medical Branch lisinopril 2018- Yes [id number] 20mg Take 1 Univers 20 mg 2-06 tablet by ity of tablet 00:00: mouth [place] 00 daily. Medical Branch lisinopril 2018- Yes [id number] 20mg Take 1 Univers 20 mg 2-06 tablet by ity of tablet 00:00: mouth [place] 00 daily. Medical Branch lisinopril 2019-0 Yes [id number] 20mg Take 1 Univers 20 mg 2-06 tablet by ity of tablet 00:00: mouth [place] 00 daily. [facility] Branch lisinopril 2018-0 Yes [id number] 20mg Take 1 Univers 20 mg 2-06 tablet by ity of tablet 00:00: mouth [place] 00 daily. [facility] Branch lisinopril 2018-0 Yes [id number] 20mg Take 1 Univers 20 mg 2-06 tablet by ity of tablet 00:00: mouth [place] 00 daily. [facility] Branch lisinopril Yes [id number] 20mg Take 1 Univers 20 mg 2-06 tablet by ity of tablet 00:00: mouth [place] 00 daily. [facility] Branch lisinopril Yes [id number] 20mg Take 1 Univers 20 mg 2-06 tablet by ity of tablet 00:00: mouth [place] 00 daily. [facility] Branch lisinopril Yes [id number] 20mg Take 1 Univers 20 mg 2-06 tablet by ity of tablet 00:00: mouth [place] 00 daily. [facility] Branch lisinopril Yes [id number] 20mg Take 1 Univers 20 mg 2-06 tablet by ity of tablet 00:00: mouth [place] 00 daily. [facility] Branch lisinopril 0 Yes [id number] 20mg Take 1 Univers 20 mg 2-06 tablet by ity of tablet 00:00: mouth [place] 00 daily. [facility] lisinopril Yes [id number] 20mg Take 1 Univers 20 mg 2-06 tablet by ity of tablet 00:00: mouth [place] 00 daily. [facility] Branch lisinopril Yes [id number] 20mg Take 1 Univers 20 mg 2-06 tablet by ity of tablet 00:00: mouth [place] 00 daily. [facility] Branch pantoprazol Yes 40mg QD Take [address] [facility] 1-09 [facility] - (PROTONIX) 00:00: daily . Medi jevean 40 MG 00 Center tablet hydrOXYzine 2017-05 Yes 50mg Take [address] [facility] (ATARAX) 50 1-14 by mouth [facility] - MG tablet 00:00: as needed Med ical 00 . [place] traMADol Yes Recurrent 50mg Take 1 [facility] (ULTRAM) 50 7-19 umbilical tablet by Health mg tablet 00:00: hernia mouth 00 every 6 hours as needed for Pain. No known No [facility] known No [facility] medications [facility] Immunizations Ordered Filled Immunization Date Status Comments [facility] e Immunization Name Name SARS-COV-2 COVID-19 2021-02-05 Completed Unive rsity of PFIZER VACCINE 00:00:00 [facility] SARS-COV-2 COVID-19 2021-02-05 Completed Unive rsity of PFIZER VACCINE 00:00:00 [facility] SARS-COV-2 COVID-19 2021-02-05 Completed Unive rsity of PFIZER VACCINE 00:00:00 [facility] SARS-COV-2 COVID-19 2021-02-05 Completed Unive rsity of PFIZER VACCINE 00:00:00 [facility] SARS-COV-2 COVID-19 2021-02-05 Completed Unive rsity of PFIZER VACCINE 00:00:00 [facility] SARS-COV-2 COVID-19 2021-02-05 Completed Unive rsity of PFIZER VACCINE 00:00:00 [facility] Covid-19 Vaccine 2020-07-[address] [facility] Mr[facility] (Pf) 00:00:00 [facility] (Pfizer/biontech) Covid-19 Vaccine 2020-06-[address] [facility] - Mrna (Pf) 00:00:00 [facility] (Pfizer/biontech) Influenza 2020-06-[address] [facility] - Antibiotic Free PF 00:00:00 [facility] IM ([id number]) Pneumococcal 2018-10-[address] [facility] - Conjugate (Prevnar) 00:00:00 [facility] 13-Valent Influenza Four-QIV 2018-04-[address] [facility] - PF 3+YR IM 00:00:00 [facility] Influenza Virus 2018-04-11 Completed Universit y of Vaccine Quad IM 3+ 00:00:00 [facility] Influenza Virus 2018-04-11 Completed Universit y of Vaccine Quad IM 3+ 00:00:00 [facility] Influenza Virus 2018-04-11 Completed Universit y of Vaccine Quad IM 3+ 00:00:00 [facility] Influenza Virus 2018-04-11 Completed Universit y of Vaccine Quad IM 3+ 00:00:00 [facility] Influenza Virus 2018-04-11 Completed Universit y of Vaccine Quad IM 3+ 00:00:00 [facility] Influenza Virus 2018-04-11 Completed Universit y of Vaccine Quad IM 3+ 00:00:00 [facility] Influenza Virus 2018-04-11 Completed Universit y of Vaccine Quad IM 3+ 00:00:00 [facility] Influenza Virus 2018-04-11 Completed Universit y of Vaccine Quad IM 3+ 00:00:00 [facility] Influenza Virus 2018-04-11 Completed Universit y of Vaccine Quad IM 3+ 00:00:00 [facility] Influenza Virus 2018-04-11 Completed Universit y of Vaccine Quad IM 3+ 00:00:00 [facility] Influenza Virus 2018-04-11 Completed Universit y of Vaccine Quad IM 3+ 00:00:00 [facility] Influenza Virus 2018-04-11 Completed Universit y of Vaccine Quad IM 3+ 00:00:00 [facility] Influenza Virus 2018-04-11 Completed Universit y of Vaccine Quad IM 3+ 00:00:00 [facility] Influenza Virus 2018-04-11 Completed Universit y of Vaccine Quad IM 3+ 00:00:00 [facility] Influenza Virus 2018-04-11 Completed Universit y of Vaccine Quad IM 3+ 00:00:00 [facility] Influenza Virus 2018-04-11 Completed Universit y of Vaccine Quad IM 3+ 00:00:00 [facility] Influenza Virus 2018-04-11 Completed Universit y of Vaccine Quad IM 3+ 00:00:00 [facility] Influenza Virus 2018-04-11 Completed Universit y of Vaccine Quad IM 3+ 00:00:00 [facility] Influenza Virus 2018-04-11 Completed Universit y of Vaccine Quad IM 3+ 00:00:00 [facility] Influenza Virus 2018-04-11 Completed Universit y of Vaccine Quad IM 3+ 00:00:00 [facility] Influenza Virus 2018-04-11 Completed Universit y of Vaccine Quad IM 3+ 00:00:00 [facility] Influenza Virus 2018-04-11 Completed Universit y of Vaccine Quad IM 3+ 00:00:00 [facility] Influenza Virus 2018-04-11 Completed Universit y of Vaccine Quad IM 3+ 00:00:00 [facility] Influenza Virus 2018-04-11 Completed Universit y of Vaccine Quad IM 3+ 00:00:00 [facility] Influenza Virus 2018-04-11 Completed Universit y of Vaccine Quad IM 3+ 00:00:00 [facility] Influenza Virus 2018-04-11 Completed Universit y of Vaccine Quad IM 3+ 00:00:00 [facility] Influenza Virus 2018-04-11 Completed Universit y of Vaccine Quad IM 3+ 00:00:00 [facility] Influenza Virus 2018-04-11 Completed Universit y of Vaccine Quad IM 3+ 00:00:00 [facility] Influenza Virus 2018-04-11 Completed Universit y of Vaccine Quad IM 3+ 00:00:00 [facility] Influenza Virus 2018-04-11 Completed Universit y of Vaccine Quad IM 3+ 00:00:00 [facility] Td 7+ years, 2016-09-[address] [facility] - (TDVAX) 2 Lf tetaus 00:00:00 [facility] Center toxoid preservative free Td 2016-09-18 Completed University of 00:00:00 [facility] Td 2016-09-18 Completed University of 00:00:00 [facility] Td 2016-09-18 Completed University of 00:00:00 [facility] Td 2016-09-18 Completed University of 00:00:00 [facility] Td 2016-09-18 Completed University of 00:00:00 [facility] Td 2016-09-18 Completed University of 00:00:00 [facility] Td 2016-09-18 Completed University of 00:00:00 [facility] Td 2016-09-18 Completed University of 00:00:00 [facility] Td 2016-09-18 Completed University of 00:00:00 [facility] Td 2016-09-18 Completed University of 00:00:00 [facility] Td 2016-09-18 Completed University of 00:00:00 [facility] Td 2016-09-18 Completed University of 00:00:00 [facility] Td 2016-09-18 Completed University of 00:00:00 [facility] Td 2016-09-18 Completed University of 00:00:00 [facility] Td 2016-09-18 Completed University of 00:00:00 [facility] Td 2016-09-18 Completed University of 00:00:00 [facility] Td 2016-09-18 Completed University of 00:00:00 [facility] Td 2016-09-18 Completed University of 00:00:00 [facility] Td 2016-09-18 Completed University of 00:00:00 [facility] Td 2016-09-18 Completed University of 00:00:00 [facility] Td 2016-09-18 Completed University of 00:00:00 [facility] Td 2016-09-18 Completed University of 00:00:00 [facility] Td 2016-09-18 Completed University of 00:00:00 [facility] Td 2016-09-18 Completed University of 00:00:00 [facility] Td 2016-09-18 Completed University of 00:00:00 [facility] Td 2016-09-18 Completed University of 00:00:00 [facility] Td 2016-09-18 Completed University of 00:00:00 [facility] Td 2016-09-18 Completed University of 00:00:00 [facility] Branch Td 2016-09-18 Completed University of 00:00:00 [facility] Td 2016-09-18 Completed University of 00:00:00 [facility] Td 2016-09-18 Completed University of 00:00:00 [facility] Branch Td 2016-09-18 Completed University of 00:00:00 [facility] Branch Vital Signs Vital Name Observation Time Observation Value Comments Source HEIGHT 2019-12-24 167.6 cm 00:00:00 WEIGHT 2019-12-24 103 kg 00:00:00 HEIGHT 2021-07-28 167.6 cm 09:12:00 WEIGHT 2021-07-28 104.237 kg 09:12:00 Systolic blood 2021-04-01 119 mm[Hg] University of pressure 20:00:00 [facility] Branch Diastolic blood 2021-04-01 65 mm[Hg] University o f pressure 20:00:00 [facility] Branch Heart rate 2021-04-01 57 /min University of 20:00:00 [facility] Branch Respiratory rate 2021-04-01 16 /min University of 20:00:00 [facility] Branch Oxygen saturation 2021-04-01 100 /min Simultaneous [facility] in Arterial blood 20:00:00 filing. User may [facility] by Pulse oximetry not have seen Branch previous data. Body temperature 2021-04-01 36.22 Corrina University of 18:07:00 [facility] Branch Body height 2021-04-01 166 cm [facility] 18:07:00 [facility] Body weight 2021-04-01 104.327 kg University 18:07:00 [facility] BMI 2021-04-01 37.86 kg/m2 [facility] 18:07:00 [facility] HEIGHT 2021-03-12 167.6 cm 07:20:00 WEIGHT 2021-03-12 102.059 kg 07:20:00 HEIGHT 2021-03-12 167.6 cm 07:20:00 WEIGHT 2021-03-12 102.059 kg 07:20:00 HEIGHT 2021-02-03 167.6 cm 09:45:00 WEIGHT 2021-02-03 105.87 kg 09:45:00 HEIGHT 2021-02-03 167.6 cm 09:45:00 WEIGHT 2021-02-03 105.87 kg 09:45:00 HEIGHT 2020-11-26 167.6 cm 09:01:00 WEIGHT 2020-11-26 102.059 kg 09:01:00 HEIGHT 2020-11-26 167.6 cm 09:01:00 WEIGHT 2020-11-26 102.059 kg 09:01:00 HEIGHT 2020-11-04 167.6 cm 11:24:00 WEIGHT 2020-11-04 99.791 kg 11:24:00 HEIGHT 2020-11-04 167.6 cm 11:24:00 WEIGHT 2020-11-04 99.791 kg 11:24:00 HEIGHT 2020-10-28 169 cm 08:50:00 WEIGHT 2020-10-28 103.692 kg 08:50:00 HEIGHT 2020-10-28 169 cm 08:50:00 WEIGHT 2020-10-28 103.692 kg 08:50:00 HEIGHT 2020-09-01 167.6 cm 13:01:00 WEIGHT 2020-09-01 106.459 kg 13:01:00 HEIGHT 2020-09-01 167.6 cm 13:01:00 WEIGHT 2020-09-01 106.459 kg 13:01:00 Systolic blood 2020-08-19 132 mm[Hg] University of pressure 14:00:00 [facility] Diastolic blood 2020-08-19 77 mm[Hg] University o f pressure 14:00:00 [facility] Heart rate 2020-08-19 71 /min University of 14:00:00 [facility] Respiratory rate 2020-08-19 18 /min University of 14:00:00 [facility] Oxygen saturation 2020-08-19 99 /min University of in Arterial blood 14:00:00 [facility] by Pulse oximetry Branch Body temperature 2020-08-19 36.94 Corrina University of 12:32:00 [facility] Body weight 2020-08-19 106.142 kg University of 12:32:00 [facility] BMI 2020-08-19 37.77 kg/m2 University of 12:32:00 [facility] Systolic blood 2020-08-19 132 mm[Hg] University of pressure 14:00:00 [facility] Diastolic blood 2020-08-19 77 mm[Hg] University o f pressure 14:00:00 [facility] Heart rate 2020-08-19 71 /min University of 14:00:00 [facility] Respiratory rate 2020-08-19 18 /min University of 14:00:00 [facility] Oxygen saturation 2020-08-19 99 /min University of in Arterial blood 14:00:00 [facility] by Pulse oximetry Branch Body temperature 2020-08-19 36.94 Corrina University of 12:32:00 [facility] Body weight 2020-08-19 106.142 kg University of 12:32:00 [facility] BMI 2020-08-19 37.77 kg/m2 University of 12:32:00 [facility] Systolic blood 2020-06-26 120 mm[Hg] University of pressure 03:00:00 [facility] Diastolic blood 2020-06-26 103 mm[Hg] University o f pressure 03:00:00 [facility] Heart rate 2020-06-26 83 /min University of 03:00:00 [facility] Respiratory rate 2020-06-26 20 /min University of 03:00:00 [facility] Oxygen saturation 2020-06-26 99 /min University of in Arterial blood 03:00:00 [facility] by Pulse oximetry Branch Body temperature 2020-06-25 36.44 Corrina University of 23:03:00 [facility] Body height 2020-06-25 167.6 cm University of 23:03: [facility] Body weight 2020-06-25 105.235 kg University of 23:03:00 [facility] BMI 2020-06-25 37.45 kg/m2 University of 23:03:00 [facility] Systolic blood 2020-06-26 120 mm[Hg] University of pressure 03:00:00 [facility] Diastolic blood 2020-06-26 103 mm[Hg] University o f pressure 03:00:00 [facility] Heart rate 2020-06-26 83 /min University of 03:00:00 [facility] Respiratory rate 2020-06-26 20 /min University of 03:00:00 [facility] Oxygen saturation 2020-06-26 99 /min [facility] in Arterial blood 03:00:00 [place] [facility] by Pulse oximetry Branch Body temperature 2020-06-25 36.44 Corrina [place] of 23:03:00 [facility] Body height 2020-06-25 167.6 cm University 23:03:00 [facility] Body weight 2020-06-25 105.235 kg [facility] :03:00 [facility] BMI 2020-06-25 37.45 kg/m2 University of 23:03:00 [facility] HEIGHT 2020-03-13 167.6 cm 10:38:00 WEIGHT 2020-03-13 108.41 kg 10:38:00 HEIGHT 2020-03-13 167.6 cm 10:38:00 WEIGHT 2020-03-13 108.41 kg 10:38:00 HEIGHT 2019-12-24 167.6 cm 00:00:00 WEIGHT 2019-12-24 103 kg 00:00:00 Systolic blood 2019-01-21 131 mm[Hg] University of pressure 21:03:00 [facility] Diastolic blood 2019-01-21 79 mm[Hg] University o f pressure 21:03:00 [facility] Heart rate 2019-01-21 73 /min University of 21:03:00 [facility] Body temperature 2019-01-21 37.06 Corrina [place] of 21:03:00 [facility] Respiratory rate 2019-01-21 18 /min University of 21:03:00 [facility] Body weight 2019-01-21 103.103 kg University of 21:03:00 [facility] BMI 2019-01-21 36.69 kg/m2 [facility] 21:03:00 [facility] Oxygen saturation 2019-01-21 98 /min University in Arterial blood 21:03:00 [place] [facility] by Pulse oximetry Branch Systolic blood 2019-01-21 131 mm[Hg] University of pressure 21:03:00 [facility] Diastolic blood 2019-01-21 79 mm[Hg] University o f pressure 21:03:00 [facility] Heart rate 2019-01-21 73 /min [facility] 21:03:00 [facility] Body temperature 2019-01-21 37.06 Corrina [facility] 21:03:00 [facility] Respiratory rate 2019-01-21 18 /min [facility] 21:03:00 [facility] Body weight 2019-01-21 103.103 kg [facility] 21:03:00 [facility] BMI 2019-01-21 36.69 kg/m2 [facility] 21:03:00 [facility] Oxygen saturation 2019-01-21 98 /min [facility] in Arterial blood 21:03:00 [facility] by Pulse oximetry Branch Systolic blood 2021-03-12 107 mm[Hg] [facility] pressure 14:30:00 [facility] Diastolic blood 2021-03-12 58 mm[Hg] [facility] - pressure 14:30:00 [facility] Heart rate 2021-03-12 61 /min [facility] - 14:30:00 [facility] Respiratory rate 2021-03-12 18 /min [facility] - 13:30:00 [facility] Oxygen saturation 2021-03-12 94 /min [facility] - in Arterial blood 13:30:00 [facility]ter by Pulse oximetry Body temperature 2021-03-12 36.56 Corrina [facility] - 12:02:00 [facility] Body height 2021-03-12 167.6 cm [facility] - 07:20:00 [facility] Body weight 2021-03-[address] [facility] - 07:20:00 [facility] BMI 2021-03-12 36.32 kg/m2 [facility] - 07:20:00 [facility] Procedures Procedure Date / Time Performing Clinician Source Performed [place] BONE SCAN WHOLE BODY 2021-04-29 13:03:00 Amberly Washington [facility] MR ABDOMEN WITH & WITHOUT 2021-04-29 11:48:00 Amberly Washington [place] [facility] - IV CONTRAST [facility] CT CHEST WITHOUT IV 2021-04-29 10:31:00 Amberly Washington [facility] ALPHA FETOPROTEIN (AFP), 2021-04-29 09:09:00 Amberly Washington [facility] TUMOR MARKER [facility] BASIC METABOLIC PANEL (7) 2021-04-29 09:09:00 Amberly Washington [facility] CBC W/PLT COUNT & AUTO 2021-04-29 09:09:00 Amberly Washington [facility] HEPATIC FUNCTION PANEL 2021-04-29 09:09:00 Amberly Washington [facility] PROTHROMBIN TIME/INR 2021-04-29 09:09:00 Amberly Washington [facility] CBC W/PLT COUNT & AUTO 2021-04-29 09:09:00 Amberly Washington [facility] TROPONIN I 2021-04-01 19:14:00 Chandrakant Garrett [facility] COMP. METABOLIC PANEL 2021-04-01 19:14:00 [facility]andrakant [facility] ([id number] AMMONIA, PLASMA 2021-04-01 19:12:00 Singer [facility] CBC WITH DIFF 2021-04-01 19:12:00 Singer [facility] XR CHEST 1 VW 2021-04-01 18:51:09 Singer [facility] URINALYSIS 2021-04-01 18:40:00 Singer [facility] PROTHROMBIN TIME / INR 2021-04-01 18:30:00 Chandrakant [facility] CONSENT/REFUSAL FOR 2021-04-01 17:58:35 Doctor Unasssuly [facility] DIAGNOSIS AND TREATMENT [facility] IR EMBOLIZATION ARTERIAL 2021-03-12 12:05:00 Amberly Washington [facility] BASIC METABOLIC PANEL (7) 2021-03-12 07:01:00 Anne-Marie More [facility] I [facility] HEPATIC FUNCTION PANEL 2021-03-12 07:01:00 Anne-Marie More [facility] CBC W/PLT COUNT & AUTO 2021-03-12 07:01:00 Anne-Marie More [facility] PROTHROMBIN TIME/INR 2021-03-12 07:01:00 Anne-Marie More [facility] CBC W/PLT COUNT & AUTO 2021-03-12 07:01:00 Anne-Marie More [facility] CBC W/PLT COUNT & AUTO 2021-02-23 10:05[facility] PROTHROMBIN TIME/INR 2021-02-23 10:05[facility] 2021-02-23 10:05[facility] BASIC METABOLIC PANEL (7) 2021-02-23 10:05:00 Aicha Roman [facility] HEPATIC FUNCTION PANEL 2021-02-23 10:05:[facility] CBC W/PLT COUNT & AUTO 2021-02-23 10:05:[facility] SARS-COV-2 COVID-19 2021-02-05 15:47:55 Doctor Unassigned, [facility] VACCINE,0.3ML,IM (PFIZER) [facility] MR ABDOMEN WITH & WITHOUT 2021-01-21 12:00:00 Amberly Washington [facility] IV CONTRAST [facility] CT CHEST WITHOUT IV 2021-01-21 10:45:00 Amberly Washington [facility] CONTRAST [facility] ALPHA FETOPROTEIN (AFP), 2021-01-21 10:02:00 Amberly Washington [facility] TUMOR MARKER [facility] BASIC METABOLIC PANEL (7) 2021-01-21 10:02:00 Amberly Washington [facility] CBC W/PLT COUNT & AUTO 2021-01-21 10:02:00 Amberly Washington [facility] HEPATIC FUNCTION PANEL 2021-01-21 10:02:00 Amberly Washington [facility] PROTHROMBIN TIME/INR 2021-01-21 10:02:00 Amberly Washington [facility] HEPATITIS C PCR, 2021-01-21 10:02:00 Amberly Washington [facility] CBC W/PLT COUNT & AUTO 2021-01-21 10:02:00 Amberly Washington [facility] IR EMBOLIZATION ARTERIAL 2020-11-26 12:27:00 Amberly Washington [facility] BASIC METABOLIC PANEL (7) 2020-11-26 08:28:00 Anne-Marie More [facility] HEPATIC FUNCTION PANEL 2020-11-26 08:28:00 Anne-Marie More [facility] CBC W/PLT COUNT & AUTO 2020-11-26 08:28:00 [facility] 2020-11-26 08:28[facility]:28[facility] W/[facility] & AUTO 2020-11-26 08:28:00 Anne-Marie [facility] BASIC METABOLIC PANEL (7) 2020-10-28 10:55:00 Amberly Washington [facility] HEPATIC FUNCTION PANEL 2020-10-28 10:55:00 Amberly Washington [facility] CBC W/PLT COUNT & AUTO 2020-10-28 10:55:00 Amberly Washington [facility] PROTHROMBIN TIME/INR 2020-10-28 10:55:00 Amberly Washington [facility] HEPATITIS C PCR, 2020-10-28 10:55:00 Amberly Washington [facility] CBC W/PLT COUNT & AUTO 2020-10-28 10:55:00 Amberly Washington [facility] NM BONE SCAN WHOLE BODY 2020-10-08 14:02:00 Amberly Washington [facility] ALPHA FETOPROTEIN (AFP), 2020-10-08 10:54:00 Amberly Washington [facility] TUMOR MARKER [facility] BASIC METABOLIC PANEL (7) 2020-10-08 10:54:00 Amberly Washington [facility] CBC W/PLT COUNT & AUTO 2020-10-08 10:54:00 Amberly Washington [facility] HEPATIC FUNCTION PANEL 2020-10-08 10:54:00 Amberly Washington [facility] PROTHROMBIN TIME/INR 2020-10-08 10:54:00 Amberly Washington [facility] CBC W/PLT COUNT & AUTO 2020-10-08 10:54:00 Amberly Washington [facility] CT CHEST WITHOUT IV 2020-10-08 09:45:00 Amberly Washington [facility] MR ABDOMEN WITH & WITHOUT 2020-09-01 14:15:00 Jose Francisco Laguna [facility] IV CONTRAST [facility] BASIC METABOLIC PANEL (7) 2020-09-01 13:15:00 Nickie Yeh [facility] HEPATIC FUNCTION PANEL 2020-09-01 13:15:00 Nickie Yeh [facility] CBC W/PLT COUNT & AUTO 2020-09-01 13:15:[address] [facility] PROTHROMBIN TIME/INR 2020-09-01 13:15:00 Nickie Yeh [facility] ALPHA FETOPROTEIN (AFP), 2020-09-01 13:15:00 Nickie Yeh [facility] - TUMOR MARKER [facility] CBC W/PLT COUNT & AUTO 2020-09-01 13:15:00 Nickie Yeh [facility] - DIFFERENTIAL [facility] XR CHEST 1 VW 2020-08-19 13:29:53 Wendy Bull [facility] HB ECG ROUTINE & RHYTHM 2020-08-19 13:05:46 [facility] 2020-08-19 13:01:00 Wendy Bull [facility] TROPONIN I 2020-08-19 13:01:00 Wendy Bull [facility] HEPATIC FUNCTION PANEL 2020-08-19 13:01:00 Wendy Bull [facility] ([id number]) (ALB,T.PRO,BILI [facility] T,BU/BC,ALT,AST,ALK PHOS) BASIC METABOLIC PANEL 2020-08-19 13:01:00 Wendy Bull [facility] (NA, K, CL, CO2, GLUCOSE, Medica l Branch BUN, CREATININE, CA) CBC WITH DIFF 2020-08-19 13:01:00 Wendy Bull [facility] N-TERMINAL PRO-BNP 2020-08-19 13:01:00 Wendy Bull [facility] COVID-19 (ID NOW RAPID 2020-08-19 13:01:00 Wendy Bull [facility] TESTING) [facility] CONSENT/REFUSAL FOR 2020-08-19 12:21:55 Doctor Unassigned, [facility] DIAGNOSIS AND TREATMENT [place] [facility] AMMONIA, PLASMA 2020-06-26 01:01:00 [place] San [facility] PROTHROMBIN TIME / INR 2020-06-26 01:01:00 [place] San [facility] XR CHEST 1 VW 2020-06-25 23:46:19 [place] San [facility] LIPASE 2020-06-25 23:43:00 Carolina San [facility] MAGNESIUM 2020-06-25 23:43:00 Carolian San [facility] TROPONIN I 2020-06-25 23:43:00 Carolina San [facility] HEPATIC FUNCTION PANEL 2020-06-25 23:43:00 Carolina San [facility] ([id number]) (ALB,T.PRO,BILI Medical Branch T,BU/BC,ALT,AST,ALK PHOS) BASIC METABOLIC PANEL 2020-06-25 23:43:00 Carolina San [facility] (NA, K, CL, CO2, GLUCOSE, Medica l Branch BUN, CREATININE, CA) CBC WITH DIFF 2020-06-25 23:43:00 [place] San [facility] URINALYSIS 2020-06-25 23:43:00 Carolina San [facility] N-TERMINAL PRO-BNP 2020-06-25 23:43:00 [place] San [facility] COVID-19 (ID NOW RAPID 2020-06-25 23:43:00 Carolina San [facility] TESTING) [facility] NOTICE OF PRIVACY 2020-06-25 22:41:45 Doctor Arboleda [facility] PRACTICES [facility] CONSENT/REFUSAL FOR 2020-06-25 22:41:29 Doctor Stewartsuly [facility] DIAGNOSIS AND TREATMENT [facility] 2019-02-08 05:01:00 Doctor Arboleda [facility] 2019-01-31 05:01:00 Doctor Arboleda [facility] [place] POCT HEMOGLOBIN A1C TEST 2019-01-21 21:30:00 Brenda Rod [facility] DME/SUPPLY JUSTIFICATION 2019-01-17 05:01:00 Doctor Arboleda [facility] HEALTH - OTHER 2019-01-07 05:01:00 Doctor Arboleda [facility] HEALTH - OTHER 2019-01-02 05:01:00 Trung Conte [facility] HOME HEALTH - OTHER 2018-12-28 05:01:00 Trung Conte [facility] INSURANCE CORRESPONDENCE 2018-12-17 05:01:00 Doctor Arboleda [facility] [place] PATIENT QUESTIONNAIRE 2016-10-19 05:01:00 Gisela Conte [facility] SCANNED LAB RESULTS 2016-10-13 05:01:00 Trung Conte [facility] Plan of Care Planned Activity Planned Date Details Comments Source Future Scheduled 2028-06-[address] [facility] - Test 00:00:00 malignant [facility] colon (procedure) [code = 781821137] Future Scheduled 2026-09-18 DTAP/TDAP/TD VACCINES [facility] Test 00:00:00 (2 - Td or Tdap) [code Medic pr Center = DTAP/TDAP/TD VACCINES (2 - Td or Tdap)] Future Scheduled 2021-12-[address] [facility] - Test 00:00:00 (procedure) [code = [facility] [id number]] Future Scheduled 2021-05-[address] [facility] - Test 00:00:00 (12+) [code = [facility] DEPRESSION SCREENING (12+)] Future Scheduled 2021-02-26 IMM Influenza Seasonal H [facility] Test 00:00:00 Feb to July (>/= 19 yrs) [code = IMM Influenza Seasonal Feb to July (>/= 19 yrs)] Future Scheduled 2021-01-27 INFLUENZA VACCINE (#1) [facility] [...] - Test 00:00:00 0-64 YRS (1 of 2 - Medical C enter PPSV23) [code = PNEUMOCOCCAL VACCINE 0-64 YRS (1 of 2 - PPSV23)] Future Scheduled 2006 SHINGLES VACCINES ([address] [facility] - Test 00:00:00 of 2) [code = SHINGLES Medic al Center VACCINES (1 of 2)] Future Scheduled 2006 Screening for [facility] Test 00:00:00 malignant neoplasm of colon (procedure) [code = 884096039] Future Scheduled 1961 COVID-19 Vaccine (1) Eusebio [facility] Test 00:00:00 [code = COVID-19 Vaccine (1)] Encounters Start End Encounter Admission Attending Care Care Encounter Source Date/Time Date/Time Type Type Clinicians Facility Department ID 2021-03-28 Emergency [facility] [id number] Univers [facility]-03-27 Emergency [facility] [id number] Univers 20:25:53 [facility] 2020-09-24 Inpatient Liang, HCAPM ENDO [id number] H[facility] 08:30:00 Anil [id number] [facility] [place] 2019-12-24 In[facility] [id number] SLE 16:51:00 [facility] 2021-09-08 2021-09-08 Outpatient [facility] [id number] SLE 00:00:00 00:00:00 2021-08-26 2021-08-26 Outpatient [facility] [id number] SLE 00:00:00 00:00:00 2021-08-26 2021-08-26 Outpatient PING WASHINGTON [facility] [id number] SLE 00:00:00 00:00:00 [facility] 2021-08-26 2021-08-26 Outpatient EL PADMINI [facility] [id number] SLE 00:00:00 00:00:00 [facility] 2021-08-26 2021-08-26 Outpatient [facility] [id number] SLE 00:00:00 00:00:00 2021-07-28 2021-07-28 Outpatient EL PADMINI [facility] [id number] SLEH 09:06:24 09:58:24 [facility] 2021-07-14 2021-07-14 Outpatient EL [facility] [id number] SLEH 00:00:00 00:00:00 2021-07-07 2021-07-07 Outpatient EL SLEH SLEH [id number] SLEH 00:00:00 00:00:00 2021-06-28 2021-06-28 [facility]at [facility] [id number] [facility] [address] 00:00:00 00:00:[address] [facility] 2021-06-27 2021-06-27 Telephone Maureen [facility] [id number] [facility] St 00:00:00 00:00:00 [facility] 2021-05-24 2021-05-24 [facility] [id number] Univers 00:00:00 00:00:00 Pearl VENEGAS [id number] i ty [facility] [id number] Anyi REZA [phone] Id dical NAL [address] [place] [address] 2021-05-14 2021-05-14 Documentat [facility] [id number] [facility] St 00:00:00 00:00:00 devon [facility] 2021-05-13 2021-05-13 Abstract Elsa [facility] [id number] [facility] St 00:00:00 00:00:00 [facility] 2021-05-12 2021-05-12 Outpatient EL SLE SLEH [id number] SLEH 00:00:00 00:00:00 2021-05-10 2021-05-10 Telephone [facility] [id number] [facility] St 00:00:00 00:00:00 [facility] 2021-05-03 2021-05-03 Documentat [facility] [id number] [facility] St 00:00:00 00:00:[address] [facility] 2021-04-29 2021-04-29 Hospital Padmini [facility] [id number] 10:09:55 23:59:[address] [facility] 2021-04-29 2021-04-29 Outpatient PING WASHINGTON SLEH SLE [id number] SLEH 10:09:55 23:59:00 [facility] 2021-04-29 2021-04-29 Outpatient PING WASHINGTON SLEH SLE [id number] SLEH 10:09:10 10:08:00 [facility] 2021-04-29 2021-04-29 [facility] [id number] 10:00:00 10:08:[address] [facility] 2021-04-29 2021-04-29 [facility] [id number] 09:35:14 09:59:[address] [facility] 2021-04-29 2021-04-29 Outpatient PING WASHINGTON SLE SLE [id number] SLEH 09:35:14 09:59:00 [facility] 2021-04-29 2021-04-29 Outpatient PING WASHINGTON SLE SLE [id number] SLEH 09:35:00 09:34:00 [facility] 2021-04-29 2021-04-29 [facility] [id number] 09:00:00 09:34:[address] [facility] 2021-04-29 2021-04-29 [facility] [id number] 08:33:09 08:43:09 Only [facility] 2021-04-29 2021-04-29 Outpatient EL SLE SLE [id number] SLEH 08:33:09 08:33:09 2021-04-29 2021-04-29 Outpatient PADMINI SLEH SLE [id number] SLEH 00:00:00 00:00:00 [facility] 2021-04-02 2021-04-02 Telephone Kimberley [facility] [id number] [id number] Univers 00:00:00 00:00:00 Pearl VENEGAS [id number] i ty of [id number] [phone] Id dical NAL [address] [place] [address] 2021-04-01 2021-04-01 Emergency [facility] [id number] Univers 13:07:00 15:37:00 CHANDRAKANT schmitt of [facility] 2021-04-01 2021-04-01 Emergency [facility] [id number] Univers 13:07:00 15:37:00 Chandrakant THEO [id number] i ty of [id number] [id number] [address] 2021-03-18 2021-03-18 [facility] [id number] [facility] St 00:00:00 00:00:[address] [facility] 2021-03-16 2021-03-16 [facility] 1.2.840.114 [id number] Univers 00:00:00 00:00:00 Pearl Venegas [id number] i ty of [id number] [id number] [address] 2021-03-15 2021-03-15 [facility] 1.2.840.114 [id number] Univers 00:00:00 00:00:00 Pearl Venegas [id number] i ty of [id number] [phone] Id dic[address] 2021-03-12 2021-03-12 [facility] [id number] 12:16:00 15:05:00 Encounter Amberly Alexandre [facility] 2021-03-12 2021-03-12 Outpatient PING WASHINGTON [facility] Radiology [id number] [facility] 06:21:33 15:05:00 AMBERLY 2021-03-12 2021-03-12 Abstract Yohannes [facility] [id number] 00:00:00 00:00:00 Mena [facility] 2021-03-10 2021-03-10 Documentat Ramirez [facility] [id number] 00:00:00 00:00:00 ion [facility] 2021-03-10 2021-03-10 Orders Derik [facility] [id number] 00:00:00 00:00:00 Only Anne-Marie [facility] 2021-02-23 2021-02-23 Hospital PING [place], [facility] [id number] 09:28:20 23:59:[address] [facility] 2021-02-23 2021-02-23 [facility] [id number] SLE 00:00:00 23:59:00 [facility] 2021-02-23 2021-02-23 Outpatient [facility] SLE [id number] SLE 10:02:57 10:02:57 2021-02-23 2021-02-23 Outside Dipesh [facility] [id number] 00:00:00 00:00:00 Orders Neenamandy [facility] 2021-02-05 2021-02-05 Outpatient Juan J GUIDRY [facility] [id number] Univers 10:50:00 10:50:00 TAM schmitt [facility] 2021-02-05 2021-02-05 Imm/Inj Nurse, Adc Pob Immunization [facility] 1.2.840.114 [id number] Univers 10:46:45 10:47:11 Visit Tam Guidry [id number] .10 oskar [facility] [id number] Anyi Reza [id number] [address] 2021-02-04 2021-02-04 Documentat Ramirez [facility] [id number] 00:00:00 00:00:00 ion [facility] 2021-02-04 2021-02-04 Documentat Guzmán, [facility] [id number] 00:00:00 00:00:00 devon [facility] 2021-02-04 2021-02-04 Documentat Guzmán, [facility] [id number] 00:00:00 00:00:00 devon [facility] 2021-02-03 2021-02-03 Office Padmini [facility] [id number] 09:42:34 10:12:34 Visit Amberly Alexandre [facility] 2021-02-03 2021-02-03 Outpatient SLEH SLEH [id number] SLEH 00:00:00 00:00:00 2021-02-03 2021-02-03 Documentcarla Irvin [facility] [id number] 00:00:00 00:00:00 devon [facility] 2021-02-03 2021-02-03 Documentat Yohannes [facility] [id number] 00:00:00 00:00:00 devon [facility] 2021-02-03 2021-02-03 Toni Steinberg [facility] [id number] 00:00:00 00:00:[address] [facility] 2021-02-02 2021-02-02 [place] Ramirez, [facility] [id number] 00:00:00 00:00:00 [facility] 2021-01-28 2021-01-28 Documentcarla Guzmán [facility] [id number] 00:00:00 00:00:00 devon [facility] 2021-01-25 2021-01-25 Rios Steinberg [facility] [id number] 00:00:00 00:00:[address] [facility] 2021-01-21 2021-01-21 [facility] Padmini [facility] [id number] 10:27:08 23:59:[address] [facility] 2021-01-21 2021-01-21 [facility] Evelynjaydennj, [facility] [id number] 10:27:00 10:27:[address] [facility] 2021-01-21 2021-01-21 Orders PING [place], [facility] [id number] 09:58:59 10:08:59 Only [facility] 2021-01-21 2021-01-21 Outpatient EVELYNADERI, SLEH SLEH [id number] SLEH 00:00:00 00:00:00 [facility] 2021-01-21 2021-01-21 Outpatient KHADERI, SLEH SLEH [id number] SLEH 00:00:00 00:00:00 [facility] 2021-01-21 2021-01-21 Outpatient EL SLEH SLEH [id number] SLEH 00:00:00 00:00:00 2020-12-30 2020-12-30 Outpatient SLEH SLEH [id number] SLEH 00:00:00 00:00:00 2020-12-17 2020-12-17 Outpatient EL SLEH SLEH [id number] SLEH 00:00:00 00:00:00 2020-12-17 2020-12-17 Outpatient EVELYNADERI, SLEH SLEH [id number] SLEH 00:00:00 00:00:00 [facility] 2020-12-17 2020-12-17 Outpatient EVELYNADERI, SLEH SLEH [id number] SLEH 00:00:00 00:00:00 [facility] 2020-12-02 2020-12-02 Documentat Emil, [facility] [id number] [facility] 00:[facility]:00 00:00:00 [facility] 2020-11-26 2020-11-26 [facility] PING Rivasjazmín, [facility] [id number] 13:14:00 18:00:[address] [facility] 2020-11-26 2020-11-26 Outpatient EL SLE SLE [id number] SLEH 00:00:00 00:00:00 2020-11-18 2020-11-18 Abstract Yohannes [facility] [id number] 00:00:00 00:00:00 [facility] 2020-11-16 2020-11-16 Documentcarla Guzmán [facility] [id number] 00:00:00 00:00:00 ion [facility] 2020-11-16 2020-11-16 Telephone Emil [facility] [id number] 00:00:00 00:00:00 [facility] 2020-11-10 2020-11-10 Orders Idris [facility] [id number] 00:00:00 00:00:00 [facility] 2020-11-05 2020-11-05 [facility] [id number] 00:00:00 00:00:00 devon [facility] 2020-11-04 2020-11-04 Office Riley, [facility] [id number] 09:38:44 10:38:44 Visit Provider [facility] 2020-11-04 2020-11-04 Outpatient SLE SLE [id number] SLEH 00:00:00 00:00:00 2020-10-28 2020-10-28 Office PING Carrascofaith [facility] [id number] 08:37:21 10:38:34 Visit Amberly Alexandre [facility] 2020-10-28 2020-10-28 Outpatient EL SLE SLE [id number] SLEH 00:00:00 00:00:00 2020-10-28 2020-10-28 Outpatient SLE SLE [id number] SLEH 00:00:00 00:00:00 2020-10-28 2020-10-28 Telephone Albaro [facility] [id number] 00:00:00 00:00:00 [facility] 2020-10-28 2020-10-28 Documentat Guzmán, [facility] [id number] 00:00:00 00:00:00 devon [facility] 2020-10-27 2020-10-27 Telephone Ramirez [facility] [id number] 00:00:00 00:00:00 [facility] 2020-10-21 2020-10-21 Outpatient SLEH SLEH [id number] SLEH 00:00:00 00:00:00 2020-10-21 2020-10-21 [facility] [id number] [id number] Univers 00:00:00 00:00:00 Pearl Venegas [id number] i ty mary ellen [place] [id number] Anyi Reza [id number] Id dical [address] 2020-10-20 2020-10-20 Orders Steinberg, [facility] [id number] 00:00:00 00:00:00 Only Eddie [facility] 2020-10-19 2020-10-19 Telephone Albaro [facility] [id number] 00:00:00 00:00:00 [facility] 2020-10-19 2020-10-19 Documentat Ramirez [facility] [id number] 00:00:00 00:00:00 devon [facility] 2020-10-15 2020-10-15 Documentat Guzmán, [facility] [id number] 00:00:00 00:00:00 devon [facility] 2020-10-14 2020-10-14 [facility] [id number] [facility] 11:21:55 11:27:44 ne Visit Pearl Venegas [id number] ity mary ellen [id number] [phone] Id dical nal 044 [facility] 2020-10-14 2020-10-14 Outpatient [facility] [id number] Univers 09:20:00 09:20:00 PEARL [id number] [facility] 2020-10-14 2020-10-14 Outpatient [facility] [id number] Univers 09:20:00 09:20:00 PEARL [facility] 2020-10-13 2020-10-13 [facility] 1.2.840.114 [id number] Univers 00:00:00 00:00:00 Pearl Venegas [id number] [id number] [phone] Id dical nal [address] [place] [address] 2020-10-12 2020-10-12 [facility]at [facility] [id number] 00:00:00 00:00:[address] [facility] 2020-10-08 2020-10-08 [facility] [id number] 09:30:00 23:59:[address] [facility] 2020-10-08 2020-10-[address] [facility] [id number] 10:50:16 11:05:16 Only [facility] 2020-10-08 2020-10-08 [facility] [id number] 08:45:00 09:29:[address] [facility] 2020-10-08 2020-10-08 [id number] SLE 00:00:00 00:00:00 [facility] 2020-10-08 2020-10-08 Outpatient PING WASHINGTON [facility] SLE [id number] SLE 00:00:00 00:00:00 [facility] 2020-10-08 2020-10-08 Outpatient SLE SLE [id number] SLE 00:00:00 00:00:00 2020-10-08 2020-10-08 Outpatient PING WASHINGTON SLE SLE [id number] SLE 00:00:00 00:00:00 [facility] 2020-10-08 2020-10-08 Outpatient PADMINI SLE SLE [id number] SLE 00:00:00 00:00:00 [facility] 2020-10-08 2020-10-08 Outpatient PADMINI SLE SLE [id number] SLE 00:00:00 00:00:00 [facility] 2020-10-08 2020-10-08 [facility] [id number] 00:00:00 00:00:[address] [facility] 2020-09-21 2020-09-21 Orders [facility] [id number] 00:00:00 00:00:[address] [facility] 2020-09-11 2020-09-11 Telephone Ruba [facility] [id number] 00:00:00 00:00:00 Nickiese Agustin [facility] 2020-09-10 2020-09-10 Documentat Ramirez [facility] [id number] 00:00:00 00:00:00 ion Jeffrey [facility] 2020-09-03 2020-09-03 Documentat Mauricio [facility] [id number] 00:00:00 00:00:00 ion Samira Arita [facility] 2020-09-02 2020-09-02 Documentat Emil [facility] [id number] [facility] 00:00:00 00:00:00 devon Lindsey [facility] 2020-09-02 2020-09-02 Telephone Iker [facility] [id number] 00:00[facility]00 [facility]01 2020-09-01 [facility] Tiny Dan [facility] [id number] [facility] 10:[facility] 23:59:[address] [facility] 2020-09-01 2020-09-01 Follow-Up PING Yeh [facility] [id number] [facility] 09:48:56 10:18:56 Nickie Agustin [facility] 2020-09-01 2020-09-01 Outpatient [facility] [id number] [facility] 00:00:00 00:00:00 2020-09-01 2020-09-01 Outpatient JOSE FRANCISCO [facility] [id number] [facility] 00:00:00 00:00:00 2020-09-01 2020-09-01 Telephone Iker [facility] [id number] [facility] 00[facility]00:00 [facility] 2020-09-01 2020-09-01 Documentat Mauricio [facility] [id number] [facility] 00:00:00 ion Samira Arita [facility] 2020-08-31 2020-08-31 Telephone Emil [facility] [id number] [facility] 00:[facility]:00 Marta Lindsey [facility] 2020-08-19 2020-08-19 [facility] 1.2.840[id number] [facility] 07:35:00 10:07:00 Wendy Venegas 350.1.13.10 ity [facility] 4.2.7.2.686 [facility] [phone] [facility] [address] 2020-08-19 2020-08-19 Emergency [facility] 1.2.840.114 [id number] 07:35:00 10:07:00 Wendy Venegas 350.1.13.10 [place] 4.2.7.2.686 [place] [phone] 084 2020-08-19 2020-08-19 Orders Doctor LICONA 1.2.840.114 [id number] Univers 00:00:00 00:00:00 Only Unassigned, TOY 350.1.13.10 [place] [facility] 4.2.7.2.686 Bryce as [phone] [address] 2020-08-19 2020-08-19 Orders Doctor MONAE 1.2.840.114 [id number] 09 00:00:00 00:00:00 Only Unassigned, TOY 350.1.13.10 [place] [facility] [phone] [facility] 2020-08-03 2020-08-[address] [facility] 1.2.840.[id number] [facility] 00:00:00 00:00:00 Pearl Venegas 350.1.13.10 i [place] [phone] Id dical [address] 2020-08-03 2020-08-[address] [facility] 1.2.840.114 [id number] 00:00:00 00:00:00 Pearl Venegas 350.1.13.10 [place] 4.2.7.2.686 Professio [phone] [address] 2020-07-19 2020-07-19 Immunizati Covid [facility] [id number] 13:46:40 13:56:40 on [place] [facility] 2020-07-19 2020-07-19 Outpatient [facility] [id number] [facility] 00:00:00 00:00:00 2020-07-19 2020-07-19 Documentat Estela [facility] [id number] 00:[facility] 00:[facility]:00 devon Rosas [facility] 2020-07-18 2020-07-18 Outpatient [facility] [id number] [facility] 00:00:00 00:00:00 2020-06-28 2020-06-28 Outpatient SLE SLE [id number] [facility] 00:00:00 00:00:00 2020-06-25 2020-06-25 [facility] 1.2.153.[id number] [facility] 17:04:00 23:09:00 Carolina Venegas 350.1.13.10 ity [place] [phone] [facility] 084 [place] 2020-06-25 2020-06-25 Emergency Drever, [facility] 1.2.629.888 [id number] 17:04:00 23:09:00 Carolina Venegas 350.1.13.10 [place] 4.2.7.2.686 [place] [phone] 08 2020-06-25 2020-06-25 Orders Doctor MONAE 1.2.840.114 [id number] Univers 00:00:00 00:00:00 Only Unassigned, TOY 350.1.13.10 [place] [facility] 4.2.7.2.686 Bryce as [phone] [facility] [address] [place] 2020-06-25 2020-06-25 Orders Doctor MONAE 1.2.840.114 [id number] 00:00:00 00:00:00 Only Unassigned, TOY 350.1.13.10 [place] [facility] 4.2.7.2.686 [id number] [facility] 2020-06-22 2020-06-22 [facility] 1.2.840.[id number] [facility] 00:00:00 00:00:00 Pearl Venegas 350.1.13.10 i [place] [phone] Id dical [address] 2020-06-22 2020-06-22 [facility] 1.2.840.114 [id number] 00:00:00 00:00:00 Pearl Venegas 350.1.13.10 [place] 4.2.7.2.686 Professio [phone] nal [address] [place] [address] 2020-03-13 2020-03-13 Outpatient EL [facility]H [facility] [id number] [facility] 00:00:00 00:00:00 2020-03-13 2020-03-13 Outpatient SLEH SLEH [id number] [facility] 00:00:00 00:00:00 2020-03-13 2020-03-13 Outpatient JESSICA, SLEH SLEH [id number] [facility] 00:00:00 00:00:00 [facility] 2020-03-13 2020-03-13 Outpatient EL PADMINI, SLEH [facility] [id number] [facility] 00:00:00 00:00:00 [facility] 2020-02-18 2020-02-18 Outpatient SLEH SLEH [id number] [facility] 00:00:00 00:00:00 2020-02-18 2020-02-18 Outpatient EL SLEH [facility]H [id number] [facility] 00:00:00 00:00:00 2020-02-18 2020-02-18 Outpatient SLEH SLEH [id number] [facility] 00:00:00 00:00:00 2020-02-05 2020-02-05 Outpatient SLEH SLEH [id number] [facility] 00:00:00 00:00:00 2020-02-05 2020-02-05 Outpatient PADMINI, SLEH SLEH [id number] [facility] 00:00:00 00:00:00 [facility] 2020-02-05 2020-02-05 Outpatient SLEH SLEH [id number] [facility] 00:00:00 00:00:00 2020-01-28 2020-01-28 Outpatient EL SLEH [facility] [id number] [facility] 00:00:00 00:00:00 2020-01-14 2020-01-14 Outpatient EL SLEH [facility] [id number] [facility] 00:00:00 00:00:00 2019-09-11 2019-09-[address] [facility] 1.2.840.[id number] [facility] 00:00:00 00:00:00 Pearl Venegas 350.1.13.10 i david of [place] 4.2.7.2.686 Anyi Reza [phone] [address] 2019-09-11 2019-09-[address] [facility] 1.2.840.114 [id number] 00:00:00 00:00:00 Pearl Venegas 350.1.13.10 [place] 4.2.7.2.686 Professio [phone] [address] 2019-08-20 2019-08-20 Outpatient SLEH SLEH [id number] [facility] 00:00:00 00:00:00 [id number] 2019-02-08 2019-02-08 Orders Doctor MONAE 1.2.840.[id number] [facility] 00:00:00 00:00:00 Only Unassigned, TOY 350.1.13.10 [place] [facility] 4.2.7.2.686 Bryce as [phone] [address] 2019-02-08 2019-02-08 Orders Doctor MONAE 1.2.840.114 [id number] 00:00:00 00:00:00 Only Unassigned, TOY 350.1.13.10 [place] [facility] 4.2.7.2.686 [phone] 009 2019-01-31 2019-01-31 Orders Doctor MONAE 1.2.840.[id number] [facility] 00:00:00 00:00:00 Only Unassigned, TOY 350.1.13.10 [place] [facility] 4.2.7.2.686 [place] as [phone] [address] 2019-01-31 2019-01-31 Orders Doctor MONAE 1.2.840.114 [id number] 00:00:00 00:00:00 Only Unassigned, TOY 350.1.13.10 [place] [facility] 4.2.7.2.686 [id number] 2019-01-23 2019-01-23 Telephone Marcel Brenda [facility] 1.2.840.[id number] [facility] 00:00:00 00:00:00 [place] 350.1.13.10 i ty [place] [phone] Id dical [address] 2019-01-23 2019-01-23 Telephone Brenda Rod [facility] 1.2.840.114 [id number] 00:00:00 00:00:00 [place] 350.1.13.10 [place] 4.2.7.2.686 Professio [phone] [address] 2019-01-21 2019-01-21 Office Brenda Rod [facility] 1.2.840.114 [id number] Univers 15:52:08 16:26:09 Visit [place] 350.1.13.10 i ty [place]2.[place] [phone] [address] 2019-01-21 2019-01-21 Office Brenda Rod [facility] 1.2.840.114 [id number] 15:52:08 16:26:09 Visit [place] 350.1.13.10 [place] 4.2.7.2.686 Professio [phone] [address] 2019-01-17 2019-01-17 Orders Doctor MONAE 1.2.840.114 [id number] Univers 00:00:00 00:00:00 Only Unassigned, TOY 350.1.13.10 [place] [facility] 4.2.7.2.686 Bry[place] as [phone] [address] 2019-01-17 2019-01-17 Orders Doctor MONAE 1.2.840.114 [id number] 00:00:00 00:00:00 Only Unassigned, TOY 350.1.13.10 [place] [facility] [id number] [facility] 2019-01-07 2019-01-07 Telephone Brenda Rod [facility] 1.2.840.114 [id number] Univers 00:00:00 00:00:00 C [place] 350.1.13.10 i ty [place] [phone] [address] 2019-01-07 2019-01-07 Orders Doctor MONAE 1.2.840.114 [id number] Univers 00:00:00 00:00:00 Only Unassigned, TOY 350.1.13.10 [place] [facility] 4.2.7.2.686 [place] as [phone] [address] 2019-01-02 2019-01-02 Orders Doctor MONAE 1.2.840.114 [id number] Univers 00:00:00 00:00:00 Only Unassigned, TOY 350.1.13.10 [place] [facility] 4.2.7.2.686 Bryce as [phone] [address] 2019-01-02 2019-01-02 Refill Brenda Rod [facility] 1.2.840.114 [id number] Univers 00:00:00 00:00:00 [place] 350.1.13.10 i [place]2.[place] [phone] Id dical [address] 2019-01-02 2019-01-02 Orders Doctor MONAE 1.2.840.114 [id number] 00:00:00 00:00:00 Only Unassigned, TOY 350.1.13.10 [place] [facility] 4.2.7.2.686 [id number] [facility] 2018-12-28 2018-12-28 Orders Doctor LICONA 1.2.840.114 [id number] Univers 00:00:00 00:00:00 Only Unassigned, TOY 350.1.13.10 [place] [facility] 4.2.7.2.686 Bryce as [phone] [address] 2018-12-28 2018-12-28 Orders Doctor LICONA 1.2.840.114 [id number] 00:00:00 00:00:00 Only Unassigned, TOY 350.1.13.10 [place] [facility] [id number] 2018-12-21 2018-12-21 Brenda Amado [facility] 1.2.840.114 [id number] Univers 00:00:00 00:00:00 [place] 350.1.13.10 i [place] [phone] Id dic[address] 2018-12-17 2018-12-17 Orders Doctor LICONA 1.2.840.114 [id number] Univers 00:00:00 00:00:00 Only Unassigned, TOY 350.1.13.10 [place] [facility] 4.2.7.2.686 Bryce as [phone] [address] 2016-10-19 2016-10-19 Orders Doctor MONAE Raygoza2.840.114 [id number] Univers 00:00:00 00:00:00 Only Unassigned, TOY 350.1.13.10 [place] [facility] 4.2.7.2.686 Bryce [place] [phone] [place] [address] [place] 2016-10-19 2016-10-19 Orders Doctor MONAE Lawson.2.840.114 [id number] 00:00:00 00:00:00 Only Unassigned, TOY 350.1.13.10 [place] [facility] 4.2.7.2.686 [phone] 009 2016-10-13 2016-10-13 Orders Doctor MONAE Lawson.2.840.114 [id number] Univers 00:00:00 00:00:00 Only Unassigned, TOY 350.1.13.10 [place] [facility] 4.2.7.2.686 [place]ce as [phone] [address] Results Test Description Test Time Test Comments Results Result [facility] e Comments MR, ABDOMEN, WITH 2021-05-03 REFERRING MD: 14:52:00 ANIL SALVADOR Include [facility] - MEDICAL Vessels CENTERName: KALEN GRIGGS : [...] portal vein. Signed: Stefano Mckeon Verified Date/Time: 05/03/2021 14:52:21 Reading Location: [address] Transitional Reading Room , CHEST, 2021-04-29 REFERRING MD: WITHOUT CONTRAST 16:45:00 ANIL SALVADOR Mets work up [facility] : 1955 Sex: M FINAL [...] lobe groundglass nodule. Signed: Brenda De Dios Verified Date/Time: 04/29/2021 16:45:28 Reading Location: [facility] C013Y CT Body Reading Room AND/OR JOINT 2021-04-29 REFERRING MD: IMAGING, WHOLE 14:33:00 ANIL SALVADOR BODY METS WORK UP [facility] : 1955 Sex: M FINAL REPORT PROCEDURE: BONE SCAN, WHOLE BODY CPT CODE: 68402 INDICATION: HCC PROTOCOL: 21.8 mCi of Tc-99m [...] Owen Verified Date/Time: 04/29/2021 14:33:51 Reading Location: [facility] 26 Flr 2618B Nuc Med Reading Room Basic Metabolic Panel 2021-04-29 12:07:01 Test Item Value Reference Range Interpretation Comme nts Sodium (test code = 134 meq/L 136-145 L 2951-2) Potassium (test code = 4.5 meq/L 3.5-5.1 2823-3) Chloride (test code = 100 meq/L 98-107 2075-0) CO2 (test code = 8-9) 22 meq/L 22-29 BUN (test code = 3094-0) 11 mg/dL 7-21 Creatinine (test code = 0.82 mg/dL 0.57-1.25 2160-0) Glucose (test code = 124 mg/dL 70-105 H 2345-7) Calcium (test code = 8.9 mg/dL 8.4-10.2 36802-1) EGFR (test code = 95 mL/min/1.73 [place] [address]-2) ACCURATE CREATININE ROXANA JA IN PREDICTING GLOMERULAR FILT RATION RATE. ESTIMATED GFR IS NOT APPLICAB LE FOR DIALYSIS PATIEN TS. MADALYN (test code = MADALYN) Hand Compositor ID - ELOY Handy slightly icteric Lab Interpretation (test Abnormal code = 91560-8) [facility] function [id number] 12:07:01 Test Item Value Reference Range Interpretation Comments Protein, Total (test 7.3 See_Comment [Autom ated code = 2885-2) message] The system which generated this result transmitted reference range : 6.0 - 8.3 gm/dL . The reference range was not used to interpr et this result as normal/abnormal . Albumin (test code = 3.3 g/dL 3.5-5.0 L 67172-6) Total Bilirubin (test 1.8 mg/dL 0.2-1.2 H code = 1974-2) Bilirubin, Direct 0.8 mg/dL 0.1-0.5 H (test code = 1967-7) Alkaline Phosphatase 148 U/L 40-150 (test code = 6768-6) AST (test code = 31 U/L 5-34 1920-8) ALT (test code = 23 U/L 6-55 1742-6) MADALYN (test code = MADALYN) Hand Compositor ID - ELOY Adamesecimen slightly icteric Lab Interpretation Abnormal (test code = 36718-8) [facility] Hospital[facility]I METABOLIC [id number] 12:07:01 Test Item Value Reference Range Interpretation Comments SODIUM (BEAKER) 134 meq/L 136-145 L (test code = 381) POTASSIUM (BEAKER) 4.5 meq/L 3.5-5.1 (test code = 379) CHLORIDE (BEAKER) 100 meq/L 98-107 (test code = 382) CO2 (BEAKER) (test 22 meq/L 22-29 code = 355) BLOOD UREA NITROGEN 11 mg/dL 7-21 (BEAKER) (test code = 354) CREATININE (BEAKER) 0.82 mg/dL 0.57-1.25 (test code = 358) GLUCOSE RANDOM 124 mg/dL 70-105 H (BEAKER) (test code = 652) CALCIUM (BEAKER) 8.9 mg/dL 8.4-10.2 (test code = 697) EGFR (BEAKER) (test 95 mL/min/1.73 ESTIMA LISA GFR IS code = 1092) sq m NOT ACCURATE CREATININE CLEARANCE IN PREDICTING GLOMERULAR FILTRATION RATE . ESTIMATED GFR I S NOT APPLICABLE FOR DIALYSIS PATIEN TS. Hand Compositor ID - ELOY MSpecimen slightly ictericHEPATIC FUNCTION [id number] 12:07:01 Test Item Value Reference Range Interpretation [...] (test code = 23 U/L 6-55 347) Hand Compositor ID - ELOY MSpecimen slightly ictericAlpha fetoprotein (AFP), tumor [id number] 11:59:44 Test Item Value Reference Range Interpretation Comments Alpha-Fetoprotein (test 2.5 ng/mL <10.0 code = 1834-1) MADALYN (test code = MADALYN) Hand Compositor ID - ELOY Butler Lab Interpretation (test Normal code = 62245-9) [facility] HospitalALPHA FETOPROTEIN (AFP), TUMOR [id number] 11:59:44 Test Item Value Reference Range Interpretation Comments ALPHA-FETOPROTEIN (BEAKER) (test 2.5 ng/mL <10.0 code = 1094) Hand Compositor ID - ELOY MProthrombin time/[id number] 11:32:54 Test Item Value Reference Interpretation Comments Range Protime (test code = 15.7 See_Comment H [Autom ated 5902-2) message] The system which generated this result transmitted reference range : 11.9 - 14.2 seconds. The reference range was not used to interpret this result as normal/abnormal . INR (test code = 1.27 See_Comment [Automated 6301-6) message] The system which generated this result transmitted reference range : <=5.90. The reference range was not used to interpret this result as normal/abnormal . MADALYN (test code = RECOMMENDED MADALYN) COUMADIN/WARFARIN INR THERAPY RANGESSTANDARD DOSE: 2.0 - 3.0 Includes: PROPHYLAXIS for venous thrombosis, systemic embolization; TREATMENT for venous thrombosis and/or pulmonary embolus.HIGH RISK: Target INR is 2.5-3.5 for patients with mechanical heart valves. Lab Interpretation Abnormal (test code = 40604-9) [facility] HospitalPROTHROMBIN TIME/[id number] 11:32:54 Test Item Value Reference Range Interpretation Comments PROTIME (BEAKER) 15.7 seconds 11.9-14.2 H (test code = 759) INR (BEAKER) (test 1.27 See_Comment [Automat ed message] code = 370) The system [employer] generated this result transmitted ref erence range: <=5.90. The reference range was not used to int erpret this result as normal/abnormal . RECOMMENDED COUMADIN/WARFARIN INR THERAPY RANGESSTANDARD DOSE: 2.0 - 3.0 Includes: PROPHYLAXIS forvenous thrombosis, systemic embolization; TREATMENT for venous thrombosis and/or pulmonary embolus.HIGH RISK: Target INR is 2.5-3.5 for patients with mechanical heart valves.CBC with platelet count + automated diff 2021-04-29 11:25:26 Test Item Value Reference Range Interpretation Comments WBC (test code = 6690-2) 6.3 See_Comment [A utomated message] The system [employer] generated this result transmitted ref erence range: 3.5 - 10 .5 K/L. The refe rence range was not u sed to interpret this result as normal/abnor mal. RBC (test code = 789-8) 4.40 See_Comment L [Au tomated message] The system [employer] generated this result transmitted ref erence range: 4.63 - 6 .08 M/L. The refe rence range was not u sed to interpret this result as normal/abnor mal. MCHC (test code = 786-4) 29.8 See_Comment L [A utomated message] The system [employer] generated this result transmitted ref erence range: 32.3 - 3 6.5 GM/DL. The refe rence range was not u sed to interpret this result as normal/abnor mal. Hematocrit (test code = 32.9 % 40.1-51.0 L 4544-3) MCV (test code = 787-2) 74.8 fL 79.0-92.2 L MCH (test code = 785-6) 22.3 pg 25.7-32.2 L RDW (test code = 788-0) 22.0 % 11.6-14.4 H Platelets (test code = 104 See_Comment L [Aut omated message] 777-3) The system [employer] generated this result transmitted ref erence range: 150 - 45 0 K/CU MM. The referen ce range was not u sed to interpret this result as normal/abnor mal. MPV (test code = [place] 88856-6) to abnormal [place] telet population distribution. nRBC (test code = 413) 0 See_Comment [Aut omated message] The system [employer] generated this result transmitted ref erence range: 0 - 0 /1 00 WBC. The refere nce range was not u sed to interpret this result as normal/abnor mal. % Neutros (test code = 57 % 429) % Lymphs (test code = 31 % 430) % Monos (test code = 10 % 431) % Eos (test code = 432) 2 % % Baso (test code = 437) 1 % # Neutros (test code = 3.56 See_Comment [Aut omated message] 670) The system [employer] generated this result transmitted ref erence range: 1.78 - 5 .38 K/L. The refe rence range was not u sed to interpret this result as normal/abnor mal. # Lymphs (test code = 1.92 See_Comment [Auto mated message] 414) The system [employer] generated this result transmitted ref erence range: 1.32 - 3 .57 K/L. The refe rence range was not u sed to interpret this result as normal/abnor mal. # Monos (test code = 0.60 See_Comment [Autom ated message] 415) The system [employer] generated this result transmitted ref erence range: 0.30 - 0 .82 K/L. The refe rence range was not u sed to interpret this result as normal/abnor mal. # Eos (test code = 416) 0.11 See_Comment [Au tomated message] The system [employer] generated this result transmitted ref erence range: 0.04 - 0 .54 K/L. The refe rence range was not u sed to interpret this result as normal/abnor mal. # Baso (test code = 417) 0.05 See_Comment [A utomated message] The system [employer] generated this result transmitted ref erence range: 0.01 - 0 .08 K/L. The refe rence range was not u sed to interpret this result as normal/abnor mal. Immature 0 % 0-1 Granulocytes-Relative (test code = 2801) Lab Interpretation (test Abnormal code = 65592-6) [facility] W/PLT COUNT & AUTO [id number] 11:25:26 Test Item Value Reference Range Interpretation [...] PERCENT (BEAKER) (test code = 2801) TROPONIN [id number] 19:45:34 Test Item Value Reference Interpretation Comments Range TROPONIN I (test 0.004 ng/mL See_Comment [Automated code = 8560380556) message] The system which generated this result [...] biotin. Lab Interpretation Normal (test code = 71108-6) [facility] WITH [id number] 19:42:16 Test Item Value Reference Range Interpretation [...] (test code = 55.0 fL 38.5-51.6 H 32470-6) RDW-CV (test code = 21.7 % 12.1-15.4 H 788-0) PLT (test code = See_Comment L [Automated 777-3) message] The sy stem which generated this result transmitted reference range : 150 - 328 10*3/ ?L. The reference r mela was not used to interpret this result as normal/abnormal . MPV (test code = Not Measure d 13649-5) IPF % (test code = 3.2 % 1.2-10.7 Platelet count 6022023936) measured by fluorescence method. NRBC/100 WBC (test See_Comment [Automat ed code = 5392436816) message] The system which generated this result transmitted reference range : 0.0 - 10.0 /100 WBCs. The refer ence range was not u sed to interpret th is result as normal/abnormal . NRBC x10^3 (test code <0.01 See_Comment [Auto mated = 6725809921) message] The s ystem which generated this result transmitted reference range : 10*3/?L. The reference range was not used to interpret this result as normal/abnormal . GRAN MAT (NEUT) % 42.9 % (test code = 770-8) IMM GRAN % (test code 0.60 % = 6356817652) LYMPH % (test code = 38.0 % 736-9) MONO % (test code = 14.2 % 5905-5) EOS % (test code = 3.3 % 713-8) BASO % (test code = 1.0 % 706-2) GRAN MAT x10^3(ANC) 2.24 10*3/uL 1.99-6.95 (test code = 9166483972) IMM GRAN x10^3 (test 0.03 10*3/uL 0.00-0.06 code = 3603709410) LYMPH x10^3 (test code 1.98 10*3/uL 1.09-3.23 = 731-0) MONO x10^3 (test code 0.74 10*3/uL 0.36-1.02 = 742-7) EOS x10^3 (test code = 0.17 10*3/uL 0.06-0.53 711-2) BASO x10^3 (test code 0.05 10*3/uL 0.01-0.09 = 704-7) Lab Interpretation Abnormal (test code = 28854-2) [facility]. METABOLIC PANEL (98502)2021-04-01 19:34:12 Test Item Value Reference Range Interpretation Comments NA (test code = 135 mmol/L 135-145 4084318871) K (test code = 3.8 mmol/L 3.5-5.0 4762064344) CL (test code = 104 mmol/L 98-108 6865480430) CO2 TOTAL (test code = 23 mmol/L 23-31 2914207838) AGAP (test code = 2-16 9965475466) BUN (test code = 9 mg/dL 7-23 6988564260) GLUCOSE (test code = 195 mg/dL 70-110 H 4053263625) CREATININE (test code = 0.65 mg/dL 0.60-1.25 4540478831) TOTAL BILI (test code = 1.3 mg/dL 0.1-1.1 H 8280893016) CALCIUM (test code = 8.2 mg/dL 8.6-10.6 L 7798986989) T PROTEIN (test code = 6.6 g/dL 6.3-8.2 4729226560) ALBUMIN (test code = 2.9 g/dL 3.5-5.0 L 5211950057) ALK PHOS (test code = 143 U/L 34-122 H 6373401641) ALTv (test code = 28 U/L 5-50 1742-6) AST(SGOT) (test code = 47 U/L 13-40 H 1333428620) eGFR (test code = mL/min/1.73m2 4464196877) MADALYN (test code = MADALYN) Association of [...] tests). Lab Interpretation Abnormal (test code = 55251-7) [facility] [id number] 19:32:52 Test Item Value Reference Range Interpretation Comments AMMONIA (test code = 7213748239) 48 umol/L 9-33 H Lab Interpretation (test code = Abnormal 18729-4) [facility] CenterPROT[facility] / [id number] 19:01:25 Test Item Value Reference Range Interpretation Comments PROTIME PATIENT (test See_Comment H [Auto mated message] code = 5964-2) The system [employer] generated this result transmitted ref erence range: 12.0 - 1 4.7 Seconds. The reference range was not used to int erpret this result as normal/abnormal . INR (test code = 6301-6) Nor mal INR <1.1; Warfarin Therap eutic range 2.0 to 3. 0 or 2.5 to 3.5, dep ending upon the indica tions. Lab Interpretation (test Abnormal code = 30804-1) [facility] CenterANG, EMBOLIZATION, EXTENSIVE - ARTERIAL 2021-03-12 14:48:00REFERRING : ANIL SALVADOR For TACEReason for Exam:- >hcc, hcvCH[facility]Name: GRIGGSKALENCOLLEEN : 1955 Sex: MFINAL REPORT Mesenteric angiogram [...] blood loss: < 5 cc. Specimen: None. word processor operator: Carolyn. Type Inspector: Dilip. Fluoroscopy Time: 14.1 min. Dose (Ka,r): [...] accessed using a micropuncture set. A 5 Fijian sheath was pollo inga. Diagnostic mesenteric angiogram was performed to access vessel patency and exclude arterio-portal shunting. A 5 Fijian Anaya catheter which was used to select the celiac trunk for a DSA run. A 3 Fijian microcatheter was advanced coaxially through the Anaya [...] Verified Date/Time: 03/12/2021 14:48:55 Reading Locat ion: [facility] B1 P048 Angio Body Reading Room HEPATIC FUNCTION [id number] 07:40:34 Test Item Value Reference Range Interpretation [...] (test code = 19 U/L 6-55 347) Hand Compositor ID - [email or web address] slightly ictericBASIC METABOLIC [id number] 07:40:33 Test Item Value Reference Range Interpretation [...] S NOT APPLICABLE FOR DIALYSIS PATIEN TS. Hand Compositor ID - YOSEPHSpecimen slightly ictericPROTHROMBIN TIME/[id number] 07:22:36 Test Item Value Reference Range Interpretation Comments PROTIME (BEAKER) 16.9 seconds 11.9-14.2 H (test code = 759) INR (BEAKER) (test 1.40 See_Comment [Automat ed message] code = 370) The system [employer] generated this result transmitted ref erence range: [...] (BEAKER) (test code = 2801) BASIC METABOLIC [id number] 10:56:30 Test Item Value Reference Range Interpretation [...] S NOT APPLICABLE FOR DIALYSIS PATIEN TS. Hand Compositor LEOPOLDO Mendez AMADOR REDMONDpecimen slightly ictericHEPATIC FUNCTION PANEL 2021-02-23 10:56:30 [...] (test code = 28 U/L 6-55 347) Hand Compositor LEOPOLDO Mendez AMADOR REDMONDkevinn yogi [id number] 10:28:14 Test Item Value Reference Range Interpretation Comments PARTIAL THROMBOPLASTIN TIME 34.9 seconds 22.5-36.0 (BEAKER) (test code = 760) PROTHROMBIN TIME/[id number] 10:27:34 Test Item Value Reference Range Interpretation Comments PROTIME (BEAKER) 17.4 seconds 11.9-14.2 H (test code = 759) INR (BEAKER) (test 1.45 See_Comment [Automat ed message] code = 370) The system [employer] generated this result transmitted ref erence range: [...] (BEAKER) (test code = 2801) MR, ABDOMEN, [id number] 12:00:00REFERRING : ANIL SALVADOR Include Abdominal VesselsG[facility] : 1955 Sex: MFINAL REPORT [...] V (series 3, image 22) is likely territory sales representative of a cyst, unchanged.*An 11 mm [...] Mckeon Verified Date/Time: 01/25/2021 12:00:12 Reading Location: [facility] B1 C013T Transitional Reading Room Hepatitis C RNA [id number] 16:10:00 Test Item Value Reference Range Interpretation Comments HCV PCR, Quantitative HCV RNA not detected HCV RNA not (test code = 07510-5) detected MADALYN (test code = MADALYN) This test uses a Real-Time Polymerase Chain Reaction (RT-PCR) methodology and was performed using KHOA Ampliprep/KHOA TaqMan HCV test kit version 2.0 ([employer]). Reportable range for this assay is 15 - 100,000,000 IU per mL (1.18 - 8.00 Log IU/mL). Lab Interpretation Normal (test code = 83881-7) [facility], [id number] 16:10:00 Test Item Value Reference Range Interpretation Comments HCV RESULT COMPONENT HCV RNA not detected HCV RNA not detected (BEAKER) (test code = 2699) This test uses a Real-Time Polymerase Chain Reaction (RT-PCR) methodology and was performed using KHOA Ampliprep/KHOA TaqMan HCV test kit version 2.0 ([employer]).Reportable range for this assay is 15 - 100,000,000 IU per mL (1.18 - 8.00 Log IU/mL).CT, CHEST, WITHOUT CONTRAST 2021-01-22 15:56:00REFERRING MD: ANIL SALVADOR Mets work up [facility] [place] : 1955 Sex: MFINAL REPORT [...] follow-up imaging is suggested. Signed: Jeff Calzada MDReport Verified Date/Time: 01/22/2021 15:56:37 Reading Location: [facility] Diagnostic Imaging Reading Room - [place] [address] ALPHA FETOPROTEIN (AFP), TUMOR [id number] 11:33:00 Test Item Value Reference Range Interpretation Comments ALPHA-FETOPROTEIN (BEAKER) (test 2.1 ng/mL <10.0 code = 1094) Hand Compositor ID - ELOY MBASIC METABOLIC [id number] 11:23:00 Test Item Value Reference Range Interpretation [...] S NOT APPLICABLE FOR DIALYSIS PATIEN TS. Hand Compositor ID - ELOY MHEPATIC FUNCTION [id number] 11:23:00 Test Item Value Reference Range Interpretation [...] (test code = 23 U/L 6-55 347) Hand Compositor ID - ELOY MCBC W/PLT COUNT & AUTO [id number] 10:58:00 Test Item Value Reference Range Interpretation [...] PERCENT (BEAKER) (test code = 2801) PROTHROMBIN TIME/[id number] 10:46:00 Test Item Value Reference Range Interpretation Comments PROTIME (BEAKER) 16.4 seconds 11.9-14.2 H (test code = 759) INR (BEAKER) (test 1.35 See_Comment [Automat ed message] code = 370) The system [employer] generated this result transmitted ref erence range: [...] SALVADOR For TACEReason for Exam:- >HCC, [facility]RHOSIS [facility] 1955 Sex: MFINAL [...] blood loss: < 5 cc. Specimen: None. word processor operator: Xiang Colindres MD.. Type Inspector: None. Fluoroscopy Time: 14.2 min.Reference Air Kerma (Ka, r): 1613 mGy. The skin was anesthetized with lidocaine. The right common femoral artery was accessed using a 21-gaugeneedle and a 0.018 inch microwire. A 4 Fijian catheter was placed over the wire and a 0.035 inch wire was placed through the catheter into the abdominal aorta. A 5 Fijian sheath was placed over the wire. A 5 Fijian SOS-II catheter was used to select the [...] ColindresMDReport Verified Date/Time: 11/27/2020 08:41:43 BASIC METABOLIC [id number] 08:59:00 Test Item Value Reference Range Interpretation [...] S NOT APPLICABLE FOR DIALYSIS PATIEN TS. Hand Compositor ID - PIDAMIAN MEGHANNpecimen slightly ictericHEPATIC FUNCTION [id number] 08:59:00 Test Item Value Reference Range Interpretation [...] (test code = 24 U/L 6-55 347) Hand Compositor ID - PIDAMIAN LSpecimen slightly ictericPROTHROMBIN TIME/[id number] 08:49:00 Test Item Value Reference Range Interpretation Comments PROTIME (BEAKER) 16.7 seconds 11.9-14.2 H (test code = 759) INR (BEAKER) (test 1.37 See_Comment [Automat ed message] code = 370) The system [employer] generated this result transmitted ref erence range: [...] 0-1 PERCENT (BEAKER) (test code = 2801) [id number] 08:49:00 Test Item Value Reference Range Interpretation Comments PARTIAL THROMBOPLASTIN TIME 34.6 seconds 22.5-36.0 (BEAKER) (test code = 760) HEPATITIS C PCR, [id number] 19:54:00 Test Item Value Reference Range Interpretation Comments HCV RESULT COMPONENT HCV RNA not detected HCV RNA not detected (BEAKER) (test code = 2699) This test uses a Real-Time Polymerase Chain Reaction (RT-PCR) methodology and was performed using KHOA Ampliprep/KHOA TaqMan HCV test kit version 2.0 ([employer]).Reportable range for this assay is 15 - 100,000,000 IU per mL (1.18 - 8.00 Log IU/mL).BASIC METABOLIC [id number] 12:10:00 Test Item Value Reference Range Interpretation [...] S NOT APPLICABLE FOR DIALYSIS PATIEN TS. Hand Compositor ID - FSEHEPATIC FUNCTION [id number] 12:10:00 Test Item Value Reference Range Interpretation [...] (test code = 26 U/L 6-55 347) Hand Compositor ID - FSECBC W/PLT COUNT & AUTO [id number] 12:01:00 Test Item Value Reference Range Interpretation [...] PERCENT (BEAKER) (test code = 2801) PROTHROMBIN TIME/[id number] 11:53:00 Test Item Value Reference Range Interpretation Comments PROTIME (BEAKER) 16.3 seconds 11.9-14.2 H (test code = 759) INR (BEAKER) (test 1.35 See_Comment [Automat ed message] code = 370) The system [employer] generated this result transmitted ref erence range: [...] WHOLE BODY 2020-10-08 17:40:00REFERRING MD: ANIL SALVADOR [facility] CENTERName: KLAEN GRIGGS : 1955 Sex: MFINAL REPORT PROCEDURE: BONE SCAN, WHOLE BODY CPT CODE: 44298 INDICATION: Hepatocellular carcinoma PROTOCOL: 21.0 mCi of [...] MDReport Verified Date/Time: 10/08/2020 17:40:47 Reading Location: [address] [place], CHEST, WITHOUT [id number] 12:54:00REFERRING MD: ANIL SALVADOR [facility] CENTERName: KALEN GRIGGS : 1955 Sex: MFINAL [...] Hiatal hernia4. Cirrhosis. Signed: Brenda De Dios Verified Date/Time: 10/08/2020 12:54:21 Reading Location: [facility] C013Y CT Body Reading Room ALPHA FETOPROTEIN (AFP), TUMOR MARKER 2020-10-08 12:52:00 Test Item Value Reference Range Interpretation Comments ALPHA-FETOPROTEIN (BEAKER) (test 2.5 ng/mL <10.0 code = 1094) Hand Compositor ID - DEBORAH CBASI METABOLIC [id number] 11:26:00 Test Item Value Reference Range Interpretation [...] S NOT APPLICABLE FOR DIALYSIS PATIEN TS. Hand Compositor ID - PIAYA LHEPATIC FUNCTION [id number] 11:26:00 Test Item Value Reference Range Interpretation [...] (test code = 29 U/L 6-55 347) Hand Compositor ID - PIAYA LCBC W/PLT COUNT & AUTO [id number] 11:14:00 Test Item Value Reference Range Interpretation [...] PERCENT (BEAKER) (test code = 2801) PROTHROMBIN TIME/[id number] 11:12:00 Test Item Value Reference Range Interpretation Comments PROTIME (BEAKER) 16.7 seconds 11.9-14.2 H (test code = 759) INR (BEAKER) (test 1.39 See_Comment [Automat ed message] code = 370) The system [employer] generated this result transmitted ref erence range: <=5.90. The reference range was not used to int erpret this result as normal/abnormal . Effective 10/24/2018: PT Reference Range ChangeNew: 11.9-14.2 Previous: 11.7- 14.7RECOMMENDED COUMADIN/WARFARIN INR THERAPY RANGESSTANDARD DOSE: 2.0-3.0 Includes: PROPHYLAXIS for venous thrombosis, systemic embolization; TREATMENT for venous thrombosis and/or pulmonary embolus.HIGH RISK: Target INR is2.5-3.5 for patients wiht mechanical heart valves.MR, ABDOMEN, [id number] 16:24:00 REFERRING MD: ANIL SALVADOR Include Abdominal VesselsUnlisted Reason for Exam - Click Yes and EnterReason Below->YesUnlisted Reason for Exam->awaiting organ transplant, cirrhosis, screening forcancer [facility] CENTERName: [facility]AL[facility] GRIG[facility] : 1955 Sex: MFINAL [...] (test code < ng/mL <10.0 = 1094) Hand Compositor ID - BSBASIC METABOLIC [id number] 14:50:00 Test Item Value Reference Range Interpretation [...] S NOT APPLICABLE FOR DIALYSIS PATIEN TS. Hand Compositor ID - EDASISpecimen slightly ictericHEPATIC FUNCTION [id number] 14:50:00 Test Item Value Reference Range Interpretation [...] (test code = 26 U/L 6-55 347) Hand Compositor ID - EDASISpecimen slightly ictericCBC W/PLT COUNT & AUTO [id number] 14:45:00 Test Item Value Reference Range Interpretation [...] PERCENT (BEAKER) (test code = 2801) PROTHROMBIN TIME/[id number] 14:40:00 Test Item Value Reference Range Interpretation Comments PROTIME (BEAKER) 17.6 seconds 11.9-14.2 H (test code = 759) INR (BEAKER) (test 1.49 See_Comment [Automat ed message] code = 370) The system [employer] generated this result transmitted ref erence range: <=5.90. The reference range was not used to int erpret this result as normal/abnormal . Effective 10/24/2018: PT Reference Range ChangeNew: 11.9-14.2 Previous: 11.7- 14.7RECOMMENDED COUMADIN/WARFARIN INR THERAPY RANGESSTANDARD DOSE: 2.0-3.0 Includes: PROPHYLAXIS for venous thrombosis, systemic embolization; TREATMENT for venous thrombosis and/or pulmonary embolus.HIGH RISK: Target INR is2.5-3.5 for patients wiht mechanical heart valves.Chest 1 [id number] 14:03:55 Small right pleural effusion with right basilar pneumonia and/oratelectasis. RL: 7000 Patient name: KALEN MONTENEGRO: 1955 64 years EXAMINATION: [...] Electronically signed by Daquan Gibson at 19:03 [facility] I 2020-08-19 13:32:55 Test Item Value Reference Range Interpretation Comments TROPONIN I (test <0.012 See_Comment [Automated code = 8518497774) message] The system which generated this result [...] ? Lab Interpretation Normal (test code = 84147-0) [facility] [id number] 13:29:55 Test Item Value Reference Range Interpretation Comments NT-proBNP (test code 119 pg/mL See_Comment [Autom ated = 8886261225) message] The system which generated this result transmitted reference range : <=125. The reference range was not used to interpret this result as normal/abnormal . MADALYN (test code = MADALYN) Biotin has been reported to cause a negative bias, interpret results relative to patient's use of biotin. Lab Interpretation Normal (test code = 85001-3) [facility] CenterCOVID[facility] (ID NOW RAPID TESTING)2020-08-19 13:23:14 Test Item Value Reference Range Interpretation Comments SARS-CoV-2 Rapid ID NOW Not Detected Not Detected (test code = 28932-0) MADALYN (test code = MADALYN) ID NOW COVID-19 Assay is an isothermal nucleic acid amplification test intended for the qualitative detection of nucleic acid from SARS-CoV-2 viral RNA in nasopharyngeal (SAUTE CHEF) specimens. It is used under Emergency Use [...] indicated. Lab Interpretation Normal (test code = 14158-0) [facility] (NA, K, CL, CO2, GLUCOSE, BUN, CREATININE, CA)2020-08-19 13:21:13 Test Item Value Reference Range Interpretation Comments NA (test code = 135 mmol/L 135-145 1264657528) K (test code = 4.1 mmol/L 3.5-5.0 9346103948) CL (test code = 106 mmol/L 98-108 6013176051) CO2 TOTAL (test code = 24 mmol/L 23-31 0278390560) AGAP (test code = 2-16 5152390062) BUN (test code = 7 mg/dL 7-23 3200744368) GLUCOSE (test code = 216 mg/dL 70-110 H 5579240365) CREATININE (test code = 0.59 mg/dL 0.60-1.25 L 6149216911) CALCIUM (test code = 8.2 mg/dL 8.6-10.6 L 8387526279) eGFR Calculation mL/min/1.73m2 (Non-) (test code = 6471291249) eGFR Calculation mL/min/1.73m2 () (test code = 3201054633) MADALYN (test code = MADALYN) Association of [...] tests). Lab Interpretation Abnormal (test code = 68890-3) [facility] CenterHep[facility] (ALB, T.PRO, BILI T, BU/BC, ALT, AST, ALK PHOS)2020-08-19 13:21:12 Test Item Value Reference Range Interpretation Comments TOTAL BILI (test code = 9508342266) 1.9 mg/dL 0.1-1.1 H BILI UNCON (test code = 3222776846) 1.7 mg/dL 0.1-1.1 H BILI CONJ (test code = 6390925595) 0.0 mg/dL 0.0-0.3 T PROTEIN (test code = 9760258360) 6.3 g/dL 6.3-8.2 ALBUMIN (test code = 1952096011) 3.0 g/dL 3.5-5.0 L ALK PHOS (test code = 4664388650) 162 U/L 34-122 H ALTv (test code = 1742-6) 25 U/L 5-50 AST(SGOT) (test code = 0723918158) 41 U/L 13-40 H Lab Interpretation (test code = Abnormal 12566-1) [facility] CenterLipase [id number] 13:21:12 Test Item Value Reference Range Interpretation Comments LIPASE (test code = 2236856999) 145 U/L 0-220 Lab Interpretation (test code = Normal 10858-6) [facility] CenterCBC with [id number] 13:17:56 Test Item Value Reference Range Interpretation Comments WBC (test code = See_Comment [Automated 9390-2) message] The sy stem which generated this result transmitted reference range : 4.20 - 10.70 10*3/?L. The reference range was not used to interpret this result as normal/abnormal . RBC (test code = See_Comment L [Automated 839-8) message] The sy stem which generated this [...] RDW-SD (test code = 48.3 fL 38.5-51.6 55845-9) RDW-CV (test code = 21.4 % 12.1-15.4 H 788-0) PLT (test code = See_Comment L [Automated 777-3) message] The sy stem which generated this result transmitted reference range : 150 - 328 10*3/ ?L. The reference r mela was not used to interpret this result as normal/abnormal . MPV (test code = Not Measure d 39909-8) IPF % (test code = 2.3 % 1.2-10.7 Platelet count 0266258854) measured by fluorescence method. NRBC/100 WBC (test See_Comment [Automat ed code = 0848405322) message] The system which generated this result transmitted reference range : 0.0 - 10.0 /100 WBCs. The refer ence range was not u sed to interpret th is result as normal/abnormal . NRBC x10^3 (test code <0.01 See_Comment [Auto mated = 0425987357) message] The s ystem which generated this result transmitted reference range : 10*3/?L. The reference range was not used to interpret this result as normal/abnormal . GRAN MAT (NEUT) % 56.4 % (test code = 770-8) IMM GRAN % (test code 0.20 % = 5111424241) LYMPH % (test code = 27.6 % 736-9) MONO % (test code = 10.7 % 5905-5) EOS % (test code = 3.7 % 713-8) BASO % (test code = 1.4 % 706-2) GRAN MAT x10^3(ANC) 2.47 10*3/uL 1.99-6.95 (test code = 0688586052) IMM GRAN x10^3 (test <0.03 0.00-0.06 code = 0999093415) LYMPH x10^3 (test code 1.21 10*3/uL 1.09-3.23 = 731-0) MONO x10^3 (test code 0.47 10*3/uL 0.36-1.02 = 742-7) EOS x10^3 (test code = 0.16 10*3/uL 0.06-0.53 711-2) BASO x10^3 (test code 0.06 10*3/uL 0.01-0.09 = 704-7) Lab Interpretation Abnormal (test code = 86585-6) [facility] CenterPROTHROMBIN TIME / [id number] 01:49:00 Test Item Value Reference Range Interpretation Comments PROTIME PATIENT (test See_Comment H [Auto mated message] code = 5964-2) The system [employer] generated this result transmitted ref erence range: 12.0 - 1 4.7 Seconds. The reference range was not used to int erpret this result as normal/abnormal . INR (test code = 6301-6) Nor mal INR <1.1; Warfarin Therap eutic range 2.0 to 3. 0 or 2.5 to 3.5, dep ending upon the indica tions. Lab Interpretation (test Abnormal code = 08232-6) [facility] CenterMAGNESIUM2021-01-29 01:27:00 Test Item Value Reference Range Interpretation Comments MAGNESIUM (test code = 2801180207) 1.6 mg/dL 1.7-2.4 L Lab Interpretation (test code = Abnormal 26109-5) [facility] CenterAMMONIA, [id number] 01:26:00 Test Item Value Reference Range Interpretation Comments AMMONIA (test code = 5411346052) 37 umol/L 9-33 H Lab Interpretation (test code = Abnormal 45101-1) [facility] CenterUrinalysis2021-01-29 00:30:00 Test Item Value Reference Range Interpretation Comments APPEARANCE (test code = Clear Clear 2765888625) COLOR (test code = Addison Yellow A 7431375696) PH (test code = 4.8-8.0 3657707295) SP GRAVITY (test code = 1.003-1.030 9322137726) GLU U QUAL (test code = Normal Normal 2802076166) BLOOD (test code = Negative Negative INTERFERE NCE FROM 8542567616) ASCORBIC ACID M AY CAUSE FALSE NEG ATIVE RESULT KETONES (test code = Negative Negative 6371992443) PROTEIN (test code = Negative Negative 2887-8) UROBILIN (test code = 4.0 mg/dL Normal A 5225846561) BILIRUBIN (test code = Negative Negative 2304969919) NITRITE (test code = Negative Negative 7559803071) LEUK KIKI (test code = Negative Negative 9076827071) RBC/HPF (test code = See_Comment [Autom ated message] 5320489023) The system [employer] generated this result transmitted ref erence range: 0 - 3 HP F. The reference range was not used to int erpret this result as normal/abnormal . WBC/HPF (test code = See_Comment [Autom ated message] 0626914061) The system [employer] generated this result transmitted ref erence range: 0 - 5 HP F. The reference range was not used to int erpret this result as normal/abnormal . BACTERIA (test code = Negative Negative 3062975330) MUCOUS (test code = Slight Negative LPF A 4057141902) SQ EPITH (test code = HPF 9224383439) CA OXALATE (test code = See_Comment [Au tomated message] 5897215327) The system [employer] generated this result transmitted ref erence range: <=1 HPF. The reference range was not used to int erpret this result as normal/abnormal . TRANS EPI (test code = <1 See_Comment [Aut omated message] 1005437524) The system [employer] generated this result transmitted ref erence range: <=1 HPF. The reference range was not used to int erpret this result as normal/abnormal . Lab Interpretation Abnormal (test code = 03805-5) [facility] 1 [id number] 00:22:38Elevation of the right hemidiaphragm of moderate [...] atelectasis or pneumonia.RL: 4131 [facility] of [facility] [id number] 00:18:00 Test Item Value Reference Range Interpretation Comments TROPONIN I (test <0.012 See_Comment [Automated code = 0593605076) message] The system which generated this result [...] ? Lab Interpretation Normal (test code = 38800-9) [facility] CenterN-[facility]MINAL [id number] 00:15:00 Test Item Value Reference Range Interpretation Comments NT-proBNP (test code 175 pg/mL See_Comment H [Autom ated = 8200366015) message] The system which generated this result transmitted reference range : <=125. The reference range was not used to interpret this result as normal/abnormal . MADALYN (test code = MADALYN) Biotin has been reported to cause a negative bias, interpret results relative to patient's use of biotin. Lab Interpretation Abnormal (test code = 65023-3) [facility] CenterCOVID-19 (ID NOW RAPID TESTING)2020-06-26 00:08:00 Test Item Value Reference Range Interpretation Comments SARS-CoV-2 Rapid ID NOW Not Detected Not Detected (test code = 03011-8) MADALYN (test code = MADALYN) ID NOW COVID-19 Assay is an isothermal nucleic acid amplification test intended for the qualitative detection of nucleic acid from SARS-CoV-2 viral RNA in nasopharyngeal (SAUTE CHEF) specimens. It is used under Emergency Use [...] indicated. Lab Interpretation Normal (test code = 73434-4) [facility] Metabolic Panel (NA, K, CL, CO2, GLUCOSE, BUN, CREATININE, CA)2020-06-26 00:06:00 Test Item Value Reference Range Interpretation Comments NA (test code = 137 mmol/L 135-145 9265623159) K (test code = 3.4 mmol/L 3.5-5 L 0511307994) CL (test code = 104 mmol/L 98-108 3846495407) CO2 TOTAL (test code = 26 mmol/L 23-31 3897406683) AGAP (test code = 2-16 8548620364) BUN (test code = 6 mg/dL 7-23 L 4973266908) GLUCOSE (test code = 118 mg/dL 70-110 H 8906967678) CREATININE (test code = 0.60 mg/dL 0.6-1.25 0286356505) CALCIUM (test code = 7.9 mg/dL 8.6-10.6 L 8882450505) eGFR Calculation mL/min/1.73m2 (Non-) (test code = 0383422311) eGFR Calculation mL/min/1.73m2 () (test code = 8811278649) MADALYN (test code = MADALYN) Association of [...] tests). Lab Interpretation Abnormal (test code = 99094-1) [facility] CenterHepatic Function Panel (ALB, T.PRO, BILI T, BU/BC, ALT, AST, ALK PHOS)2020-06-26 00:06:00 Test Item Value Reference Range Interpretation Comments TOTAL BILI (test code = 3256338150) 2.2 mg/dL 0.1-1.1 H BILI UNCON (test code = 5182617183) 1.8 mg/dL 0.1-1.1 H BILI CONJ (test code = 5115047225) 0.0 mg/dL 0-0.3 T PROTEIN (test code = 5415348007) 6.8 g/dL 6.3-8.2 ALBUMIN (test code = 5188001668) 3.1 g/dL 3.5-5 L ALK PHOS (test code = 6336820535) 162 U/L 34-122 H ALTv (test code = 1742-6) 22 U/L 5-50 AST(SGOT) (test code = 6185196132) 42 U/L 13-40 H Lab Interpretation (test code = Abnormal 89499-5) [facility] CenterLipase [id number] 00:06:00 Test Item Value Reference Range Interpretation Comments LIPASE (test code = 5342755194) 156 U/L 0-220 Lab Interpretation (test code = Normal 63189-8) [facility] CenterCBC with [id number] 00:00:00 Test Item Value Reference Range Interpretation Comments WBC (test code = See_Comment [Automated 2111-2) message] The sy stem which generated this result transmitted reference range : 4.20 - 10.70 10*3/?L. The reference range was not used to interpret this result as normal/abnormal . RBC (test code = See_Comment L [Automated 559-8) message] The sy stem which generated this [...] RDW-SD (test code = 49.4 fL 38.5-51.6 97456-7) RDW-CV (test code = 21.6 % 12.1-15.4 H 788-0) PLT (test code = See_Comment L [Automated 777-3) message] The sy stem which generated this result transmitted reference range : 150 - 328 10*3/ ?L. The reference r mela was not used to interpret this result as normal/abnormal . MPV (test code = Not Measure d 39172-7) IPF % (test code = 1.9 % 1.2-10.7 Platelet count 8606428695) measured by fluorescence method. NRBC/100 WBC (test See_Comment [Automat ed code = 4512989610) message] The system which generated this result transmitted reference range : 0.0 - 10.0 /100 WBCs. The refer ence range was not u sed to interpret th is result as normal/abnormal . NRBC x10^3 (test code <0.01 See_Comment [Auto mated = 3904714954) message] The s ystem which generated this result transmitted reference range : 10*3/?L. The reference range was not used to interpret this result as normal/abnormal . GRAN MAT (NEUT) % 44.8 % (test code = 770-8) IMM GRAN % (test code 0.20 % = 3489725854) LYMPH % (test code = 37.2 % 736-9) MONO % (test code = 13.6 % 5905-5) EOS % (test code = 2.7 % 713-8) BASO % (test code = 1.5 % 706-2) GRAN MAT x10^3(ANC) 2.47 10*3/uL 1.99-6.95 (test code = 8080121904) IMM GRAN x10^3 (test <0.03 0-0.06 code = 1149131553) LYMPH x10^3 (test code 2.05 10*3/uL 1.09-3.23 = 731-0) MONO x10^3 (test code 0.75 10*3/uL 0.36-1.02 = 742-7) EOS x10^3 (test code = 0.15 10*3/uL 0.06-0.53 711-2) BASO x10^3 (test code 0.08 10*3/uL 0.01-0.09 = 704-7) Lab Interpretation Abnormal (test code = 18533-5) [facility] [id number] 12:02:00 Test Item Value Reference Range Interpretation Comments SCAN RESULT (test code = 9175445) SARS-COV2/RT-PCR ([facility])2020-03-13 20:20:00 Test Item Value Reference Range Interpretation Comments SARS-COV2/RT-PCR (test Negative Not Detected, Negative, code = 3512866) See external report for linked test SARS-COV-[address] [facility] KAT (test code = 7898513) Negative result for this test determines that [...] 564(g) of the Act.Fact Sheet for Healthcare Providers:https://www.Soocial/sites/default/files/product/documents/Fact_Shee x_GE_Jaewnvqpq_Orcv_NAOU-PwT-3.pdfFact Sheet for Healthcare Patients:https://www.[employer]/sites/default/files/product/ documents/Oqmc_Khhvp_Xfacnxaw_Aoan_KHHP-LlV-2.pdfPerforming Laboratory:[facility].[place], [place] [address]UM, ABDOMEN, WITH 2020-03-13 14:43:00REFERRING : ANIL SALVADOR Include Abdominal VesselsUnlisted Reason for Exam - Click Yes and EnterReason Below- >YesUnlisted Reason for Exam->listed for liver transplant, screening for malignancyG[facility]Name: GRIGGSKALEN Schwartz : 1955 Sex: MFINAL REPORT MRI of [...] mass.3. Trace ascites. Signed: Brenda De Dios [facility] Verified Date/Time: 03/13/2020 14:43:24 ALPHA FETOPROTEIN (AFP), TUMOR [id number] 13:25:00 Test Item Value Reference Range Interpretation Comments ALPHA-FETOPROTEIN (BEAKER) (test code < ng/mL <10.0 = 1094) Hand Compositor ID - AAHAMIDCOMPREHENSIVE METABOLIC [id number] 12:54:00 Test Item Value Reference Range Interpretation [...] S NOT APPLICABLE FOR DIALYSIS PATIEN TS. Hand Compositor ID - AAHAMIDRAD, BONE DENSITY [id number] 12:46:00REFERRING MD: ANIL SALVADOR Reason for Exam:->on liver transplant waiting list [facility] CENTERName: KALEN GRIGGS : 1955 Sex: MFINAL REPORT Bone density study, 03/13/2020 Clinical History: Screening Bone mineral density measurementLumbar spine1.110 gm/pb3Spzctim neck0.918 gm/cm2 Standard deviation from young adult [...] MDReport Verified Date/Time: 03/13/2020 12:46:53 Reading Location: [address] Reading Room BILIRUBIN, [id number] 12:38:00 Test Item Value Reference Range Interpretation Comments BILIRUBIN DIRECT (BEAKER) (test 1.0 mg/dL 0.1-0.5 H code = 706) Hand Compositor ID - AAHAMIDPROTHROMBIN TIME/[id number] 12:23:00 Test Item Value Reference Range Interpretation [...] mechanical heart valves.CBC W/PLT COUNT & AUTO [id number] 12:16:00 Test Item Value Reference Range Interpretation [...] PERCENT (BEAKER) (test code = 2801) BLOOD [id number] 20:00:00 Test Item Value Reference Range Interpretation Comments CULTURE (BEAKER) (test No growth in 5 days code = 1095) BLOOD [id number] 20:00:00 Test Item Value Reference Range Interpretation Comments CULTURE (BEAKER) (test No growth in 5 days code = 1095) POCT-GLUCOSE [id number] 07:47:00 Test Item Value Reference Range Interpretation Comments POC-GLUCOSE METER 121 mg/dL 70-110 H : TESTED A T [facility] 6720 (BEAKER) (test code = [facility], 1538) 53382: Hand Compositor/Techni zaire ID = [id number] for RADHA GARVEY HEPATIC FUNCTION [id number] 07:24:00 Test Item Value Reference Range Interpretation [...] (test code = 25 U/L 6-55 347) Hand Compositor ID - KRISHNA Isaac slightly ictericPOCT-GLUCOSE [id number] 22:18:00 Test Item Value Reference Range Interpretation Comments POC-GLUCOSE METER 143 mg/dL 70-110 H : TESTED A T [facility] 6720 (BEAKER) (test code = [facility], 153) 93743: Hand Compositor/Techni zaire ID = [id number] for CA RBAJAL, ANU POCT-GLUCOSE [id number] 17:24:00 Test Item Value Reference Range Interpretation Comments POC-GLUCOSE METER 214 mg/dL 70-110 H : TESTED A T [facility] 6720 (BEAKER) (test code = [facility], 153) 52839: Hand Compositor/Techni zaire ID = [id number] for SA NTOS, WADE POCT-GLUCOSE [id number] 13:32:00 Test Item Value Reference Range Interpretation Comments POC-GLUCOSE METER 127 mg/dL 70-110 H : TESTED A T [facility] 6720 (BEAKER) (test code = [facility], 1538) 55668: Hand Compositor/Techni zaire ID = [id number] for SA NTOS, WADE POCT-GLUCOSE [id number] 12:08:00 Test Item Value Reference Range Interpretation Comments POC-GLUCOSE METER 124 mg/dL 70-110 H : TESTED A T [facility] 6720 (BEAKER) (test code = [facility], 1538) 72651: Hand Compositor/Techni zaire ID = [id number] for CHARI RAZO POCT-GLUCOSE [id number] 08:16:00 Test Item Value Reference Range Interpretation Comments POC-GLUCOSE METER 117 mg/dL 70-110 H : TESTED A T [facility] 6720 (BEAKER) (test code = [facility], 1538) 46721: Hand Compositor/Techni zaire ID = [id number] for WADE MCMULLEN BASIC METABOLIC [id number] 06:13:00 Test Item Value Reference Range Interpretation [...] S NOT APPLICABLE FOR DIALYSIS PATIEN TS. Hand Compositor ID - PIAYA LSpecimen slightly ictericHEPATIC FUNCTION [id number] 06:13:00 Test Item Value Reference Range Interpretation [...] (test code = 27 U/L 6-55 347) Hand Compositor ID - KRISHNA ZAVALETApecimekaz slightly ictericPROTHROMBIN TIME/[id number] 05:46:00 Test Item Value Reference Range Interpretation [...] mechanical heart valves.CBC W/PLT COUNT & AUTO [id number] 05:21:00 Test Item Value Reference Range Interpretation [...] PERCENT (BEAKER) (test code = 2801) POCT-GLUCOSE [id number] 22:38:00 Test Item Value Reference Range Interpretation Comments POC-GLUCOSE METER 181 mg/dL 70-110 H : TESTED A T [facility] 6720 (BEAKER) (test code = NICOLE Arita [facility], 1538) 43241: Hand Compositor/Techni zaire ID = [id number] for CAREY LINARESLorraineRON (CELLAVISION MANUAL DIFF)2019-12-28 15:15:00 Test Item Value [...] PLATELET CONCENTRATION Decreased (CELLAVISION)(BEAKER) (test code = 4868) Hand Compositor ID - Nima Villafuerte comments: Slide comments:CBC W/PLT COUNT & AUTO [id number] 15:11:00 Test Item Value Reference Range Interpretation [...] PERCENT (BEAKER) (test code = 2801) POCT-GLUCOSE [id number] 10:15:00 Test Item Value Reference Range Interpretation Comments POC-GLUCOSE METER 178 mg/dL 70-110 H : TESTED A T [facility] 6720 (BEAKER) (test code = [facility], 1538) 01622: Hand Compositor/Techni zaire ID = [id number] for DELPHINE JUAREZ POCT-GLUCOSE [id number] 09:08:00 Test Item Value Reference Range Interpretation Comments POC-GLUCOSE METER 167 mg/dL 70-110 H : TESTED A T [facility] 6720 (BEAKER) (test code = [facility] [facility], 1538) 15534: Hand Compositor/Techni zaire ID = [id number] for SOHAIL COWANLEY BASIC METABOLIC [id number] 07:06:00 Test Item Value Reference Range Interpretation [...] S NOT APPLICABLE FOR DIALYSIS PATIEN TS. Hand Compositor ID - PIAYA LSpecimen slightly ictericHEPATIC FUNCTION [id number] 07:06:00 Test Item Value Reference Range Interpretation [...] (test code = 20 U/L 6-55 347) Hand Compositor ID - KRISHNA LSpecimen slightly ictericPOCT-GLUCOSE [id number] 22:05:00 Test Item Value Reference Range Interpretation Comments POC-GLUCOSE METER 216 mg/dL 70-110 H : TESTED A T [facility] 6720 (BEAKER) (test code = [facility], 1538) 89737: Hand Compositor/Techni zaire ID = [id number] for DAVID TALBERT POCT-GLUCOSE [id number] 17:07:00 Test Item Value Reference Range Interpretation Comments POC-GLUCOSE METER 244 mg/dL 70-110 H : TESTED A T [facility] 6720 (BEAKER) (test code = [facility], 1538) 27587: Hand Compositor/Techni zaire ID = [id number] for IB RAHIM, SERKALEM CBC W/PLT COUNT & AUTO [id number] 12:15:00 Test Item Value Reference Range Interpretation [...] PERCENT (BEAKER) (test code = 2801) POCT-GLUCOSE [id number] 11:54:00 Test Item Value Reference Range Interpretation Comments POC-GLUCOSE METER 226 mg/dL 70-110 H : TESTED Lana Davis [facility] 6720 (BEAKER) (test code = [facility], 1538) 09279: Hand Compositor/Techni zaire ID = [id number] for CHUCHO SALDIVAR BASIC METABOLIC [id number] 08:18:00 Test Item Value Reference Range Interpretation [...] S NOT APPLICABLE FOR DIALYSIS PATIEN TS. Hand Compositor ID - NTPPOCT-GLUCOSE [id number] 08:07:00 Test Item Value Reference Range Interpretation Comments POC-GLUCOSE METER 166 mg/dL 70-110 H : TESTED A T [facility] 6720 (BEAKER) (test code = NICOLE Arita [facility], 1538) 71495: Hand Compositor/Techni zaire ID = [id number] for CHUCHO SALDIVAR HEPATIC FUNCTION [id number] 05:05:00 Test Item Value Reference Range Interpretation [...] (test code = 19 U/L 6-55 347) Hand Compositor ID - Dennis calix ictericPOCT-GLUCOSE [id number] 17:47:00 Test Item Value Reference Range Interpretation Comments POC-GLUCOSE METER 222 mg/dL 70-110 H : TESTED A T [facility] 6720 (BEAKER) (test code = [facility], 1538) 34316: Hand Compositor/Techni zaire ID = [id number] for BRAXTON MORAN POCT-GLUCOSE [id number] 12:25:00 Test Item Value Reference Range Interpretation Comments POC-GLUCOSE METER 311 mg/dL 70-110 H : TESTED A T [facility] 6720 (BEAKER) (test code = [facility], 1538) 63885: Hand Compositor/Techni zaire ID = [id number] for BRAXTON MORAN POCT-GLUCOSE [id number] 07:49:00 Test Item Value Reference Range Interpretation Comments POC-GLUCOSE METER 190 mg/dL 70-110 H : TESTED A T [facility] 6720 (BEAKER) (test code = [facility], 1538) 74965: Hand Compositor/Techni zaire ID = [id number] for BRAXTON MORAN VITAMIN B12 AND [id number] 06:11:00 Test Item Value Reference Range Interpretation Comments VITAMIN B12 (BEAKER) (test code = 873 pg/mL 213-816 H 774) FOLATE (BEAKER) (test code = 362) 12.30 ng/mL >=7.00 Hand Compositor ID - GABBYASIBASIC METABOLIC [id number] 05:21:00 Test Item Value Reference Range Interpretation [...] S NOT APPLICABLE FOR DIALYSIS PATIEN TS. Hand Compositor ID - EDASIHEPATIC FUNCTION [id number] 05:21:00 Test Item Value Reference Range Interpretation [...] (test code = 19 U/L 6-55 347) Hand Compositor ID - EDASICBC W/PLT COUNT & AUTO [id number] 05:12:00 Test Item Value Reference Range Interpretation [...] PERCENT (BEAKER) (test code = 2801) PROTHROMBIN [id number] 04:56:00 Test Item Value Reference Range Interpretation [...] is2.5-3.5 for patients wiht mechanical heart valves.POCT-GLUCOSE [id number] 22:11:00 Test Item Value Reference Range Interpretation Comments POC-GLUCOSE METER 195 mg/dL 70-110 H : [facility] ([facility] (test code = [facility] [place], 1538) 015[address]: Hand Compositor/Techni zaire ID = [id number] for SAMIRA COWAN HEMOGLOBIN AND [id number] 16:15:00 Test Item Value Reference Range Interpretation Comments HEMOGLOBIN (BEAKER) (test code = 8.6 GM/DL 13.7-17.5 L 410) HEMATOCRIT (BEAKER) (test code = 30.2 % 40.1-51.0 L 411) Hand Compositor ID - [id number] 13:02:00 Test Item Value Reference Range Interpretation Comments FERRITIN (BEAKER) (test code = 73.10 ng/mL 5.00-275.00 361) Hand Compositor ID - EDASIIRON, TIBC, % SAT. (WITHOUT FERRITIN)2019-12-25 12:42:00 Test Item Value Reference Range Interpretation Comments IRON (BEAKER) (test code = 547) 29.0 ug/dL 40.0-160.0 L TOTAL IRON BINDING CAPACITY 151 ug/dL 250-450 L (BEAKER) (test code = 769) IRON % SATURATION (2) (BEAKER) 19 % 20-55 L (test code = 2590) Hand Compositor ID - EDASICOMPREHENSIVE METABOLIC [id number] 06:44:00 Test Item Value Reference Range Interpretation [...] S NOT APPLICABLE FOR DIALYSIS PATIEN TS. Hand Compositor ID - EDASICBC W/PLT COUNT & AUTO [id number] 05:55:00 Test Item Value Reference Range Interpretation [...] PERCENT (BEAKER) (test code = 2801) POCT-GLUCOSE [id number] 23:39:00 Test Item Value Reference Range Interpretation Comments POC-GLUCOSE METER 307 mg/dL 70-110 H : TESTED A T [facility] 6720 (BEAKER) (test code = NICOLE Arita [facility], 1538) 70136: Hand Compositor/Techni zaire ID = [id number] for Erendira Talbert (contrac t) RAD, CHEST, 1 VIEW, NON [id number] 18:52:00REFERRING : ANIL SALVADOR Reason for exam:->sobShould this be [...] MDReport Verified Date/Time: 12/24/2019 18:52:34 Reading Location: [address] Consult Reading Room BASI METABOLIC PANEL [...] Specimen slightly ictericCBC W/PLT COUNT & AUTO [id number] 08:54:00 Test Item Value Reference Range Interpretation [...] (BEAKER) (test code = 2801) HEPATITIS C [id number] 12:25:00 Test Item Value Reference Range Interpretation Comments HEPATITIS C ANTIBODY (BEAKER) (test Reactive Nonreactive A code = 367) ALPHA FETOPROTEIN (AFP), TUMOR [id number] 15:45:00 Test Item Value Reference Range Interpretation Comments ALPHA-FETOPROTEIN (BEAKER) (test 2.7 ng/mL <10.0 code = 1094) BASIC METABOLIC [id number] 15:36:00 Test Item Value Reference Range Interpretation [...] DIALYSIS PATIEN TS. Specimen slightly ictericHEPATIC FUNCTION [id number] 15:35:00 Test Item Value Reference Range Interpretation [...] 21 U/L 6-55 347) Specimen slightly ictericPROTHROMBIN [id number] 15:00:00 Test Item Value Reference Range Interpretation [...] mechanical heart valves.CBC W/PLT COUNT & AUTO [id number] 14:53:00 Test Item Value Reference Range Interpretation [...] code = 2801) ALPHA FETOPROTEIN (AFP), TUMOR [id number] 14:10:00 Test Item Value Reference Range Interpretation Comments ALPHA-FETOPROTEIN (BEAKER) (test 2.7 ng/mL <10.0 code = 1094) BASIC METABOLIC [id number] 13:52:00 Test Item Value Reference Range Interpretation [...] DIALYSIS PATIEN TS. Specimen slightly ictericHEPATIC FUNCTION [id number] 13:52:00 Test Item Value Reference Range Interpretation [...] 24 U/L 6-55 347) Specimen slightly ictericPROTHROMBIN TIME/[id number] 13:49:00 Test Item Value Reference Range Interpretation [...] mechanical heart valves.CBC W/PLT COUNT & AUTO [id number] 13:35:00 Test Item Value Reference Range Interpretation [...] (test code = 2801) POCT HEMOGLOBIN A1C [id number] 21:30:00 Test Item Value Reference Range Interpretation Comments POCT HBA1C (test code = 4548-4) 7.4 % 4-6 A Lab Interpretation (test code = Abnormal 72650-3) [facility] [id number] 21:30:00 Test Item Value Reference Range Interpretation Comments POCT HBA1C (test code = 4548-4) 7.4 % 4-6 A Lab Interpretation (test code = Abnormal 17815-9) [facility] [id number] 14:59:00 Test Item Value Reference Range Interpretation Comments T4 TOTAL (BEAKER) (test code = 895) 5.7 ug/dL 4.9-11.7 13:20:00 Test Item Value Reference Range Interpretation Comments T3 TOTAL (BEAKER) (test code = 656) 113 ng/dL 48-159 CYTOMEGALOVIRUS ANTIBODY, [id number] 11:11:00 Test Item Value Reference Range Interpretation Comments CYTOMEGALOVIRUS, IGG (BEAKER) Positive Negative, Equivocal A (test code = 3429) CMV IgG Result Interpretation: </= 0.8 Al Negative 0.9-1.0 Al Equivocal >/=1.1 Al PositiveCYTOMEGALOVIRUS ANTIBODY, [id number] 11:11:00 Test Item Value Reference Range Interpretation Comments CYTOMEGALOVIRUS IGM ANTIBODY Negative Negative, Equivocal (BEAKER) (test code = 3437) CMV IgM Result Interpretation: </= 0.8 Al Negative 0.9-1.0 Al Equivocal >/= 1.1 Al PositiveEBV ANTIBODY, [id number] 11:08:00 Test Item Value Reference Range Interpretation [...] Equivocal >/= 1.1 Al PositiveVARICELLA ZOSTER ANTIBODY, [id number] 11:08:00 Test Item Value Reference Range Interpretation Comments VARICELLA ZOSTER IGG (AL) (BEAKER) > (test code = 3197) VARICELLA ZOSTER RESULT INTERPRETATIONS: <=0.8 Al Nonreactive: Presumed non-immune to VZV 0.9-1.0 Al Equivocal >=1.1 Al Reactive: Presumed immune to TLHJKLKI-9-[id number] 13:11:00 Test Item Value Reference Range Interpretation Comments ALPHA-1 ANTITRYPSIN (BEAKER) 155.30 mg/dL 90.00-200.00 (test code = 502) HEMOGLOBIN [id number] 13:08:00 Test Item Value Reference Range Interpretation Comments HEMOGLOBIN A1C (BEAKER) (test code = 6.4 % 4.3-6.1 H 368) HEPATITIS A ANTIBODY, [id number] 12:51:00 Test Item Value Reference Range Interpretation Comments HEPATITIS A IGG ANTIBODY (BEAKER) Reactive Nonreactive A (test code = 2797) HEPATITIS C [id number] 12:51:00 Test Item Value Reference Range Interpretation Comments HEPATITIS C ANTIBODY (BEAKER) (test Reactive Nonreactive A code = 367) [id number] 12:48:00 Test Item Value Reference Range Interpretation Comments PROSTATE SPECIFIC ANTIGEN (BEAKER) 0.4 ng/mL 0.0-4.0 (test code = 844) HIV-1 ANTIGEN WITH HIV-1/2 [id number] 12:48:00 Test Item Value Reference Range Interpretation Comments HIV-1 ANTIGEN WITH HIV 1\\T\\2 Nonreactive Nonreactive ANTIBODY (2) (BEAKER) (test code = 2586) VITAMIN D, 36-[id number] 12:46:00 Test Item Value Reference Range Interpretation Comments VITAMIN D 25-OH (BEAKER) (test code 7.7 ng/mL 6.6-49.9 = 2764) Effective 03/08/2017: Reference Range ChangeNew: 6.6-49.9 ng/mL Previous: 13.0-47.8 ng/mLRecommended Vitamin D Target Range: 30.0-40.0 ng/mLURINALYSIS W/ [id number] 11:55:00 Test Item Value Reference Range Interpretation [...] /LPF SOURCE(BEAKER) (test code = 2795) CRYPTOCOCCAL [id number] 11:10:00 Test Item Value Reference Range Interpretation Comments CRYPTOCOCCAL ANTIGEN, SERUM Negative Negative, Interference (BEAKER) (test code = 1828) [id number] 10:59:00 Test Item Value Reference Range Interpretation Comments THYROID STIMULATING HORMONE 2.10 uIU/mL 0.35-4.94 (BEAKER) (test code = 772) [id number] 10:59:00 Test Item Value Reference Range Interpretation Comments FERRITIN (BEAKER) (test code = 361) 69 ng/mL 5-275 [id number] 10:51:00 Test Item Value Reference Range Interpretation Comments RPR SCREEN (BEAKER) (test code = Nonreactive Nonreactive 420) [id number] 10:49:00 Test Item Value Reference Range Interpretation Comments TRANSFERRIN (BEAKER) (test code = 197 mg/dL 174-382 541) Specimen slightly [id number] 10:45:00 Test Item Value Reference Range Interpretation Comments MAGNESIUM (BEAKER) (test code = 1.5 mg/dL 1.6-2.6 L 627) [id number] 10:45:00 Test Item Value Reference Range Interpretation Comments PHOSPHORUS (BEAKER) (test code = 3.6 mg/dL 2.3-4.7 604) URIC [id number] 10:45:00 Test Item Value Reference Range Interpretation Comments URIC ACID (BEAKER) (test code = 4.8 mg/dL 2.6-7.2 773) Specimen slightly ictericCOMPREHENSIVE METABOLIC [id number] 10:45:00 Test Item Value Reference Range Interpretation [...] FOR DIALYSIS PATIEN TS. Specimen slightly ictericLIPID [id number] 10:45:00 Test Item Value Reference Range Interpretation [...] 160-189 Very High >=190 Specimen slightly ictericBILIRUBIN, [id number] 10:45:00 Test Item Value Reference Range Interpretation Comments BILIRUBIN DIRECT (BEAKER) (test 1.6 mg/dL 0.1-0.5 H code = 706) GAMMA GLUTAMYL TRANSFERASE (GGT)2018-12-20 10:45:00 Test Item Value Reference Range Interpretation Comments GAMMA GLUTAMYL TRANSFERASE (BEAKER) 33 U/L 9-64 (test code = 364) Specimen slightly [id number] 10:42:00 Test Item Value Reference Range Interpretation Comments PARTIAL THROMBOPLASTIN TIME 37.9 seconds 22.5-36.0 H (BEAKER) (test code = 760) PROTHROMBIN [id number] 10:36:00 Test Item Value Reference Range Interpretation [...] INR is2.5-3.5 for patients wiht mechanical heart valves.[id number] 10:36:00 Test Item Value Reference Range Interpretation Comments ETHANOL (BEAKER) (test code = 400) < mg/dL <=10 [id number] 10:36:00 Test Item Value Reference Range Interpretation Comments FIBRINOGEN LEVEL (BEAKER) (test 207 mg/dl 225-434 L code = 658) BLOOD GAS, [id number] 10:35:00 Test Item Value Reference Range Interpretation [...] 21.0 % CBC W/PLT COUNT & AUTO [id number] 10:25:00 Test Item Value Reference Range Interpretation [...] PERCENT (BEAKER) (test code = 2801) CALCIUM, [id number] 10:20:00 Test Item Value Reference Range Interpretation Comments CALCIUM IONIZED (BEAKER) (test 1.05 mmol/L 1.12-1.27 L code = 698) PH, BLOOD (BEAKER) (test code = 7.41 1810) RAD, MANDIBLE, MIN 4 [id number] 16:56:00REFERRING : ANIL SALVADOR Reason for Exam:->pretransplant liver evaluationFINAL REPORT TECHNIQUE: Minimum four views of the mandible. INDICATION: pretransplant liver evaluation. COMPARISON: None. FINDINGS:No fracture or dislocation.No periapical lucencies.Caries of a maxillary molar, side indeterminate.Mild degenerative disc changes at C4-C5, C5-C6, and C6-C7. IMPRESSION: No periapical lucency. Caries of a maxillary molar, side indeterminate. Signed:Tawanda Alvarez MDReport Verified Date/Time: 12/19/2018 16:56:31 Reading Location: [address] Radiology Reading Room RAD, CHEST, 2 [id number] 15:51:00REFERRING : ANIL SALVADOR Reason for Exam:->pretransplant liver evaluationFINAL REPORT Chest, PA and lateral. History: Transplant evaluation. Comparison: 10/28/2018. Discussion: The cardiomediastinal silhouette and pulmonary vasculature are within normal limits. The lungs are clear without evidence of consolidation or effusion. There are no acute osseous abnormalities. The soft tissues are unremarkable. IMPRESSION: No acute cardiopulmonary abnormality. Signed: Farzaneh Walker Verified Date/Time: 12/19/2018 15:51:17 Reading Location: [facility] Reading Room MR, ABDOMEN, [id number] 14:51:00 REFERRING MD: ANIL FRANCISCO REPORT TECHNIQUE: MRI of the abdomen [...] ascites, splenomegaly, and large esophageal varices. Signed: aTwanda Alvarez Verified Date/Time: 12/19/2018 14:51:24 Reading Location: [address] Radiology Reading Room [facility] 2018-12-06 11:12:00 Test Item Value Reference Range Interpretation Comments ETHANOL (BEAKER) (test code = 400) < mg/dL <=10 BASIC METABOLIC [id number] 10:56:00 Test Item Value Reference Range Interpretation [...] DIALYSIS PATIEN TS. Specimen moderately ictericHEPATIC FUNCTION [id number] 10:56:00 Test Item Value Reference Range Interpretation [...] 27 U/L 6-55 347) Specimen moderately ictericPROTHROMBIN TIME/[id number] 10:40:00 Test Item Value Reference Range Interpretation [...] mechanical heart valves.CBC W/PLT COUNT & AUTO [id number] 10:38:00 Test Item Value Reference Range Interpretation [...] PERCENT (BEAKER) (test code = 2801) BLOOD [id number] 08:00:00 Test Item Value Reference Range Interpretation Comments CULTURE (BEAKER) (test No growth in 5 days code = 1095) BLOOD [id number] 08:00:00 Test Item Value Reference Range Interpretation Comments CULTURE (BEAKER) (test No growth in 5 days code = 1095) BODY FLUID CULTURE + GRAM [id number] 12:20:00 Test Item Value Reference Range Interpretation Comments CULTURE (BEAKER) (test code No growth = 1095) GRAM STAIN RESULT (BEAKER) 1+ WBCs (test code = 1123) GRAM STAIN RESULT (BEAKER) No organisms seen (test code = 63395) HEPATITIS C PCR, [id number] 08:32:00 Test Item Value Reference Range Interpretation Comments HCV RESULT COMPONENT HCV RNA not detected HCV RNA not detected (BEAKER) (test code = 2699) This test uses a Real-Time Polymerase Chain Reaction (RT-PCR) methodology and was performed using [employer] Ampliprep/KHOA TaqMan HCV test kit version 2.0 ([employer]).Reportable range for this assay is 15 - 100,000,000 IU per mL (1.18 - 8.00 Log IU/mL).POCT-GLUCOSE [id number] 08:09:00 Test Item Value Reference Range Interpretation Comments POC-GLUCOSE METER 117 mg/dL 70-[address] [facility] [address] (BEAKER) (test code = [place] 1538) [address] CALCIUM, [id number] 05:54:00 Test Item Value Reference Range Interpretation Comments CALCIUM IONIZED (BEAKER) (test 1.01 mmol/L 1.12-1.27 L code = 698) PH, BLOOD (BEAKER) (test code = 7.45 1810) COMPREHENSIVE METABOLIC [id number] 05:07:00 Test Item Value Reference Range Interpretation [...] APPLICABLE FOR DIALYSIS PATIEN TS. Specimen slightly [id number] 05:06:00 Test Item Value Reference Range Interpretation Comments PHOSPHORUS (BEAKER) (test code = 3.3 mg/dL 2.3-4.7 604) [id number] 05:06:00 Test Item Value Reference Range Interpretation Comments MAGNESIUM (BEAKER) (test code = 1.5 mg/dL 1.6-2.6 L 627) CBC W/PLT COUNT & AUTO [id number] 04:43:00 Test Item Value Reference Range Interpretation [...] LYMPHOCYTES ABSOLUTE COUNT 2.03 K/ L 1.32-3.57 (AKER) (test code = 414) MONOCYTES ABSOLUTE COUNT (BEAKER) 0.71 K/ L 0.30-0.82 (test code = 415) EOSINOPHILS ABSOLUTE COUNT 0.23 K/ L 0.04-0.54 (AKER) (test code = 416) BASOPHILS ABSOLUTE COUNT (AKER) 0.03 K/ L 0.01-0.08 (test code = 417) IMMATURE GRANULOCYTES-RELATIVE 1 % 0-1 PERCENT ([facility]) (test code = 2801) POCT-GLUCOSE [id number] 21:35:00 Test Item Value Reference Range Interpretation Comments POC-GLUCOSE METER 154 mg/dL 70-110 H TESTED AT [place] [address] ([facility]) (test [facility] = [facility] 1538) [address] POCT-GLUCOSE [id number] 17:21:00 Test Item Value Reference Range Interpretation Comments POC-GLUCOSE METER 138 mg/dL 70-110 H TESTED AT [place] [address] ([facility]) (test code = [facility] Juan J [facility] 1538) [address] POCT-GLUCOSE [id number] 13:27:00 Test Item Value Reference Range Interpretation Comments POC-GLUCOSE METER 166 mg/dL 70-110 H TESTED AT [place] [address] ([facility]) (test code = [facility] Juan J [facility] 1538) [address] CBC W/PLT COUNT & AUTO [id number] 12:00:00 Test Item Value Reference Range Interpretation Comments WHITE BLOOD CELL COUNT ([facility]) 6.0 K/ L 3.5-10.5 (test code = 775) RED BLOOD CELL COUNT ([facility]) 2.79 M/ L 4.63-6.08 L (test code = 761) HEMOGLOBIN (BEAKER) (test code = 9.4 GM/DL 13.7-17.5 L 410) HEMATOCRIT ([facility]) (test code = 28.2 % 40.1-51.0 L 411) MEAN CORPUSCULAR VOLUME ([facility]) 101.1 fL 79.0-92.2 H (test code = 753) MEAN CORPUSCULAR HEMOGLOBIN 33.7 pg 25.7-32.2 H ([facility]) (test code = 751) MEAN CORPUSCULAR HEMOGLOBIN [...] 3438) Received comment: User comments: Slide comments:POCT-GLUCOSE [id number] 11:52:00 Test Item Value Reference Range Interpretation Comments POC-GLUCOSE METER 180 mg/dL 70-[address] [facility] 67[address] (BEAKER) (test code = [place] 1538) [address] POCT-GLUCOSE [id number] 08:09:00 Test Item Value Reference Range Interpretation Comments POC-GLUCOSE METER 115 mg/dL 70-[address] [facility] 67[address] (BEAKER) (test code = [place] 1538) [address] COMPREHENSIVE METABOLIC [id number] 05:59:00 Test Item Value Reference Range Interpretation [...] APPLICABLE FOR DIALYSIS PATIEN TS. Specimen slightly [id number] 05:57:00 Test Item Value Reference Range Interpretation Comments MAGNESIUM (BEAKER) (test code = 1.6 mg/dL 1.6-2.6 627) POCT-GLUCOSE [id number] 22:30:00 Test Item Value Reference Range Interpretation Comments POC-GLUCOSE METER 186 mg/dL 70-[address] [facility] 67[address] (BEAKER) (test code = [place] 1538) [address] POCT-GLUCOSE [id number] 18:33:00 Test Item Value Reference Range Interpretation Comments POC-GLUCOSE METER 117 mg/dL 70-[address] [facility] 67[address] (BEAKER) (test code = [place] 1538) [address] U/S, [id number] 17:34:00REFERRING MD: ANIL SALVADOR Please give 25g [...] 2% lidocaine anesthesia was administered. A 5 Fijian catheter was advanced into the peritoneal cavity and 1300 cc of addison fluid was removed. The catheter was removed without immediate complication. Samples left with interstitial sent to the lab for analysis. IMPRESSION:Uncomplicated ultrasound-guided paracentesis with 1300 cc fluid removed. Signed: Mauricio Cullen MDReport Verified Date/Time: 10/29/2018 17:34:00 Reading Location: [address] Ultrasound Reading Room VANCOMYCIN LEVEL, TROUGH 2018-10-29 17:22:00 Test Item Value Reference Range Interpretation Comments VANCOMYCIN TROUGH (BEAKER) (test 7.3 ug/mL 10.0-20.0 L code = 522) CBC W/PLT COUNT & AUTO [id number] 15:00:00 Test Item Value Reference Range Interpretation [...] = 2801) BODY FLUID CELL COUNT WITH [id number] 13:45:00 Test Item Value Reference Range Interpretation [...] Tube (test code = 2873) RESPIRATORY PANEL [id number] 12:27:00 Test Item Value Reference Range Interpretation [...] [facility] using the SpamLion Respiratory Panel. It is FDA cleared and has been verified and approved by the [facility] for clinical use on nasopharyngeal swab specimens.The performance of the FilmArrayRP has not been established in individuals who received influenza vaccine. Recent administration ofa nasal influenza vaccine may cause false positive results for Influenza A and/orInfluenza B.POCT-GLUCOSE [id number] 12:16:00 Test Item Value Reference Range Interpretation Comments POC-GLUCOSE METER 196 mg/dL 70-[address] [facility] 67[address] (BEJOSE) (test code = [place] 1538) [address] RESPIRATORY PANEL [id number] 10:59:00 Test Item Value Reference Range Interpretation Comments HUMAN METAPNEUMOVIRUS Not detected Not detected, (BEAKER) (test code = 2683) Equivocal RHINOVIRUS (BEAKER) (test Not detected Not detected, code = 2684) Equivocal INFLUENZA A (BEAKER) (test Not detected Not detected, code = 1945) Equivocal INFLUENZA A (NO SUBTYPE) Not detected, [...] [facility] using the VontuArray Respiratory Panel. It is FDA cleared and has been verified and approved by the [facility] for clinical use on nasopharyngeal swab specimens.The performance of the FilmArrayRP has not been established in individuals who received influenza vaccine. Recent administration ofa nasal influenza vaccine may cause false positive results for Influenza A and/orInfluenza B.POCT-GLUCOSE [id number] 08:15:00 Test Item Value Reference Range Interpretation Comments POC-GLUCOSE METER 184 mg/dL 70-[address] [facility] 67[address] (BEAKER) (test code = [place] 1538) [address] CBC W/PLT COUNT & AUTO [id number] 07:49:00 Test Item Value Reference Range Interpretation [...] APPLICABLE FOR DIALYSIS PATIEN TS. Specimen moderately [id number] 04:31:00 Test Item Value Reference Range Interpretation Comments MAGNESIUM (BEAKER) (test code = 1.9 mg/dL 1.6-2.6 627) LACTIC ACID, [id number] 04:18:00 Test Item Value Reference Range Interpretation Comments LACTATE BLOOD VENOUS (2) ([facility]) 1.3 mmol/L 0.5-2.2 (test code = 2872) Specimen moderately ictericPOCT-GLUCOSE [id number] 18:00:00 Test Item Value Reference Range Interpretation Comments POC-GLUCOSE METER 121 mg/dL 70-110 H TESTED AT [place] [address] [facility] (test code = NICOLE Arita [facility] 1538) [address] [id number] 12:39:00 Test Item Value Reference Range Interpretation Comments PROCALCITONIN ([employer]) (test code 4.50 ng/mL <0.05 H = 3036) SEPSIS RISK (ng/mL)Low: 0.05-0.50Intermediate: 0.51-2.00High: >=2.01POCT-GLUCOSE [id number] 12:20:00 Test Item Value Reference Range Interpretation Comments POC-GLUCOSE METER 148 mg/dL 70-[address] [facility] 67[address] ([facility]) (test code = [facility] Juan J [facility] 1538) [address] LEGIONELLA ANTIGEN, [id number] 12:13:00 Test Item Value Reference Range Interpretation Comments L. PNEUMOPHILA Negative - see Negative fo r L. SEROGP 1 UR AG comment pneumophila (BEAKER) (test code serogrou p 1 antigen, = 1156) suggesting no r ecent or current infe ction with this serog roup. Legionellosis c annot be ruled out si nce other serogroup s and species may cau se disease. STREP PNEUMONIAE [id number] 12:13:00 Test Item Value Reference Range Interpretation [...] limit of the test. RAPID INFLUENZA A&B [id number] 12:11:00 Test Item Value Reference Range Interpretation Comments RAPID INFLUENZA A AG (BEAKER) Negative Negative, Inconclusive (test code = 1622) RAPID INFLUENZA B AG (BEAKER) Negative Negative, Inconclusive (test code = 1623) LACTIC ACID, [id number] 10:51:00 Test Item Value Reference Range Interpretation Comments LACTATE BLOOD VENOUS (2) (BEAKER) 3.0 mmol/L 0.5-2.2 H (test code = 2872) Specimen moderately ictericU/S, ABDOMINAL, [id number] 07:19:00REFERRING MD: ANIL SALVADOR Please perform with [...] MDReport Verified Date/Time: 10/28/2018 07:19:25 Reading Location: [facility] C013T Transitional Reading Room RAPID DRUG SCREEN, [id number] 07:07:00 Test Item Value Reference Range Interpretation [...] situations. Chain of custody not maintained. Some tvau-usy-honfjsd medications, as well as adulterants, may cause inaccurate results. Clinical correlation should be applied. A more comprehensive drug screen or confirmation of a detected drug may be performed upon request.CT, BRAIN, WITHOUT [id number] 06:42:00REFERRING MD: ANIL FRANCISCO REPORT CT, BRAIN, [...] Verified Date/Time: 10/28/2018 06:42:47 VITAMIN B12 AND [id number] 06:21:00 Test Item Value Reference Range Interpretation Comments VITAMIN B12 (BEAKER) (test code = 719 pg/mL 213813 094) FOLATE (BEAKER) (test code = 362) 13.7 ng/mL >=7.0 TROPONIN [id number] 06:05:00 Test Item Value Reference Range Interpretation [...] H (test code = 2590) COMPREHENSIVE METABOLIC [id number] 05:44:00 Test Item Value Reference Range Interpretation [...] APPLICABLE FOR DIALYSIS PATIEN TS. Specimen moderately [id number] 05:38:00 Test Item Value Reference Range Interpretation Comments MAGNESIUM (BEAKER) (test code = 2.3 mg/dL 1.6-2.6 627) LACTIC ACID, [id number] 05:32:00 Test Item Value Reference Range Interpretation Comments LACTATE BLOOD VENOUS 4.1 mmol/L 0.5-2.2 H Specime n slightly (2) (BEAKER) (test hemolyzed code = 2872) Specimen moderately ictericTROPONIN [id number] 02:28:00 Test Item Value Reference Range Interpretation [...] disease, and persistent tachyarrhythmia.RAD, ABDOMEN/KUB, 1 VIEW [id number] 02:04:00REFJENISE GOMEZ: ANIL SALVADOR Reason for exam:->NG tube placementFINAL [...] Navarrete MDReport Verified Date/Time: 10/28/2018 02:04:20 HROMBIN [id number] 01:58:00 Test Item Value Reference Range Interpretation [...] mechanical heart valves.CBC W/PLT COUNT & AUTO [id number] 01:45:00 Test Item Value Reference Range Interpretation [...] User comments: Slide comments:URINALYSIS W/ REFLEX URINE [id number] 01:36:00 Test Item Value Reference Range Interpretation [...] SOURCE(BEAKER) (test code = 2795) COMPREHENSIVE METABOLIC [id number] 01:16:00 Test Item Value Reference Range Interpretation [...] APPLICABLE FOR DIALYSIS PATIEN TS. Specimen moderately [id number] 01:15:00 Test Item Value Reference Range Interpretation Comments AMMONIA (BEAKER) (test code = 348) 69 mol/L 18-72 LACTIC ACID, [id number] 01:08:00 Test Item Value Reference Range Interpretation Comments LACTATE BLOOD VENOUS (2) (BEAKER) 3.2 mmol/L 0.5-2.2 H (test code = 2872) Specimen moderately [id number] 01:08:00 Test Item Value Reference Range Interpretation Comments MAGNESIUM (BEAKER) (test code = 1.1 mg/dL 1.6-2.6 L 627) RAD, CHEST, 1 VIEW, NON [id number] 00:52:00REFERRING MD: ANIL SALVADOR Reason for exam:->sepsisShould [...] an acute osseous abnormality. Signed: Williams Bahena [facility] Verified Date/Time: 10/28/2018 00:52:42 Reading Location: [address] Reading Room ACTIN (SMOOTH MUSCLE) ANTIBODY, [id number] 08:28:00 Test Item Value Reference Range Interpretation Comments SCAN RESULT (test code = 5754109) [id number] 08:27:00 Test Item Value Reference Range Interpretation Comments SCAN RESULT (test code = 0065385) NILS TITER AND [id number] 09:55:00 Test Item Value Reference Range Interpretation Comments NILS TITER (BEAKER) (test code = :160 1541) NILS PATTERN (BEAKER) (test code = [place]ck[place] 1781) ANTI-NUCLEAR ANTIBODY (NILS)2018-10-05 09:54:00 Test Item Value Reference Range Interpretation Comments ANTI-NUCLEAR ANTIBODY (NILS) (BEAKER) Positive Negative A (test code = 418) Test performed by IFA method.[id number] 10:54:00 Test Item Value Reference Range Interpretation Comments FERRITIN (BEAKER) (test code = 361) 218 ng/mL 5-275 HEPATITIS A ANTIBODY, [id number] 10:18:00 Test Item Value Reference Range Interpretation Comments HEPATITIS A IGG ANTIBODY (BEAKER) Reactive Nonreactive A (test code = 2797) ALPHA FETOPROTEIN (AFP), TUMOR [id number] 10:14:00 Test Item Value Reference Range Interpretation Comments ALPHA-FETOPROTEIN (BEAKER) (test 3.5 ng/mL <10.0 code = 1094) HEPATITIS A ANTIBODY, [id number] 10:14:00 Test Item Value Reference Range Interpretation Comments HEPATITIS A IGM ANTIBODY (BEAKER) Nonreactive Nonreactive (test code = 498) HEPATITIS B CORE ANTIBODY, [id number] 10:14:00 Test Item Value Reference Range Interpretation Comments HEPATITIS B CORE TOTAL ANTIBODY Nonreactive Nonreactive (BEAKER) (test code = 497) HEPATITIS B SURFACE [id number] 09:42:00 Test Item Value Reference Range Interpretation Comments HEPATITIS B SURFACE ANTIBODY < mIU/mL <8.0 (BEAKER) (test code = 647) HEPATITIS B SURFACE [id number] 09:36:00 Test Item Value Reference Range Interpretation [...] 41 % 20-55 (test code = 2590) [id number] 09:14:00 Test Item Value Reference Range Interpretation Comments ALPHA-1 ANTITRYPSIN (BEAKER) 159.30 mg/dL 90.00-200.00 (test code = 502) COMPREHENSIVE METABOLIC [id number] 09:10:00 Test Item Value Reference Range Interpretation [...] FOR DIALYSIS PATIEN TS. Specimen slightly ictericBILIRUBIN, [id number] 09:10:00 Test Item Value Reference Range Interpretation Comments BILIRUBIN DIRECT (BEAKER) (test 1.4 mg/dL 0.1-0.5 H code = 706) PROTHROMBIN [id number] 08:38:00 Test Item Value Reference Range Interpretation [...]
[2021-07-31 09:29] LABS: Absolute Lymphocytes (CBC) 1.3 K/uL (0.7-4.9); Hematocrit 26.6 % (39.6-49.0); Lymphocytes % 34.5 % (15.3-44.8); MPV 8.7 fL (7.6-11.3); RBC Red Blood Cell Count 3.79 M/uL (4.33-5.43)
[2021-07-31 09:44] LABS: BUN Blood Urea Nitrogen 8 mg/dL (7-18); Bicarbonate 24 mmol/L (21-32); Glucose Level 125 mg/dL (74-106); Potassium 3.8 mmol/L (3.5-5.1); Sodium Level 139 mmol/L (136-145)
--- NOTE | 2021-07-31 10:22 | RAD REPORT ---
EXAM DESCRIPTION: CT - Soft Tissue Neck W/Contr CLINICAL HISTORY: neck/jaw pain, left side COMPARISON: Chest Single View dated 06/13/2021; Chest Single View dated 06/12/2021; Abdomen 1 View ([facility]) dated 06/09/2021; Chest Single View dated 05/30/2021No comparisonsCt Stroke Brain Wo Cont dated [address] scans are performed using dose optimization technique as appropriate and may includ e automated exposure control or mA/KV adjustment according to patient size. FINDINGS: Numerous dental caries. Nasopharyngeal tissues are normal in appearance. Fossa Rosenmller are normal. Parapharyngeal fat triangles are symmetric. Tongue base structures are normal. Epiglottis and aryepiglottic folds are normal. Piriform sinuses are well aerated. The vocal cords are normal in appearance. Salivary glands are normal in appearance. Upper lung fisher are clear. Included intracranial contents are unremarkable. Mucous retention cyst in left maxillary sinus trace thickening in the right maxillary sinus Again noted is a quadrigeminal cistern fat containing lesion. IMPRESSION: Numerous dental caries but no evidence of odontogenic abscess or other acute findings id entified.
--- NOTE | 2021-07-31 10:31 | ER ---
Nurse's Notes [facility] Name: Tonny Vidal Age: 65 yrs Sex: Male : 1955 Arrival Date: 07/31/2021 Time: 08:57 Bed 15 Private MD: Diagnosis: Dental caries, unspecified Presentation: 07/31 09:06 Chief complaint: Patient states: "starting yesterday the left side of my jaw and tongue jd3 started hurting. it is getting hard to swallow sometimes.". Coronavirus screen: At this time, the client does not indicate any symptoms associated with coronavirus-19. Ebola Screen: No symptoms or risks identified at this time. Initial Sepsis Screen: Does the patient meet any 2 criteria? No. Patient's initial sepsis screen is negative. Does the patient have a suspected source of infection? No. Patient's initial sepsis screen is negative. Risk Assessment: Do you want to hurt yourself or someone else? Patient reports no desire to harm self or others. Onset of symptoms was July 30, 2021. 09:06 Method Of Arrival: Ambulatory jd3 09:06 Acuity: FAIZA 3 jd3 Historical: - Allergies: 09:09 Ativan; jd3 - PMHx: 09:09 ADD/ADHD; Cirrhosis; Diabetes - NIDDM; Hypertension; psoriasis; jd3 - Immunization history:: Adult Immunizations up to date, Client reports receiving the 2nd dose of the Covid vaccine, Flu vaccine is up to date. - Social history:: Smoking status: Patient/guardian denies using tobacco, the patient reports quitting approximately 3 years ago. - Family history:: not pertinent. - Hospitalizations: : The patient was recently seen at [facility]. Screenin:22 Abuse screen: Denies threats or abuse. Denies injuries from another. Nutritional cb5 screening: No deficits noted. Tuberculosis screening: No symptoms or risk factors identified. 10:49 Fall Risk IV access (20 points). ocampo Assessment: 09:10 General: Appears uncomfortable, obese, unkempt, Behavior is calm, cooperative, cb5 appropriate for age. Pain: Complains of pain in left side of face. Neuro: No deficits noted. Level of Consciousness is awake, alert, obeys commands, Oriented to person, place, time, situation, Appropriate for age. Cardiovascular: Rhythm is sinus bradycardia. Respiratory: No deficits noted. GI: No deficits noted. : No deficits noted. EENT: No deficits noted. Derm: Skin is jaundiced. Vital Signs: 09:14 BP 123 / 65; Pulse 62; Resp 17 S; Temp 98.3(TE); Pulse Ox 100% on R/A; Weight 104.33 kg jd3 (R); Height 5 ft. 6 in. (167.64 cm) (R); Pain 8/10; 10:49 BP 131 / 65; Pulse 75; Resp 18; Pulse Ox 100% on R/A; ocampo 09:14 Body Mass Index 37.12 (104.33 kg, 167.64 cm) jd3 ED Course: 08:57 Patient arrived in ED. jj6 08:58 Irving Chacko MD is Attending Physician. rn 09:09 Triage completed. jd3 09:11 CBC with Diff Sent. cb5 09:11 Basic Metabolic Panel Sent. cb5 09:15 Arm band placed on. jd3 09:20 Santa Dudley, RN is Primary Nurse. cb5 09:22 Patient has correct armband on for positive identification. Call light in reach. Side cb5 rails up X 1. 10:11 CT Soft Tissue Neck W/contr In Process Unspecified. EDMS 10:48 No provider procedures requiring assistance completed. Inserted saline lock: 20 gauge ocampo in right antecubital area, using aseptic technique. IV discontinued, intact, Pressure dressing applied. Administered Medications: No medications were administered Outcome: 10:31 Discharge ordered by . rn 10:49 Discharged to home ocampo 10:49 Condition: good 10:49 Discharge instructions given to patient, Prescriptions given X 1. 10:49 Patient left the ED. ocampo Signatures: Dispatcher [employer] EDMS Irving Chacko MD MD rn Davies, Jonathon, RN RN jSherine Shen jj6 Yesenia Garnica RN RN ha Boman, Colleen, RN RN cb5 Corrections: (The following items were deleted from the chart) 09:13 09:10 PSHx: ; jd3 jd3
--- NOTE | 2021-07-31 10:31 | EDPHYS ---
Physician Documentation [facility] Name: Tonny Vidal Age: 65 yrs Sex: Male : 1955 Arrival Date: 07/31/2021 Time: 08:57 Bed 15 Private MD: ED Physician Irving Chacko HPI: 07/31 09:06 This 65 yrs old Male presents to ER via Unassigned with complaints of Jaw rn Pain, mouth pain, neck pain. 09:06 The patient presents with pain. Onset: The symptoms/episode began/occurred this rn morning. Duration: The symptoms are continuous. Modifying factors: The symptoms are alleviated by nothing, the symptoms are aggravated by nothing. Associated signs and symptoms: Pertinent positives: pain, Pertinent negatives: dysphagia, fever, inability to eat, vomiting. Severity of symptoms: At their worst the symptoms were mild, in the emergency department the symptoms are unchanged. The patient has not experienced similar symptoms in the past. The patient has not recently seen a physician. Pt reports pain and subjective swelling to left mouth and jaw/neck. No trauma. No fever. No difficulty swallowing or breathing. Reports hurts more when swallows. Denies new prescriptions. No chest pain or sob. . Historical: - Allergies: 09:09 Ativan; jd3 - PMHx: 09:09 ADD/ADHD; Cirrhosis; Diabetes - NIDDM; Hypertension; psoriasis; jd3 - Immunization history:: Adult Immunizations up to date, Client reports receiving the 2nd dose of the Covid vaccine, Flu vaccine is up to date. - Social history:: Smoking status: Patient/guardian denies using tobacco, the patient reports quitting approximately 3 years ago. - Family history:: not pertinent. - Hospitalizations: : The patient was recently seen at [facility]. ROS: 09:06 Constitutional: Negative for fever, chills, and weight loss, Eyes: Negative for injury, rn pain, redness, and discharge, ENT: + left oral pain Neck: + left neck pain Cardiovascular: Negative for chest pain, palpitations, and edema, Respiratory: Negative for shortness of breath, cough, wheezing, and pleuritic chest pain, Abdomen/GI: Negative for abdominal pain, nausea, vomiting, diarrhea, and constipation, Back: Negative for injury and pain, : Negative for injury, bleeding, discharge, and swelling, MS/Extremity: Negative for injury and deformity, Skin: Negative for injury, rash, and discoloration, Neuro: Negative for headache, weakness, numbness, tingling, and seizure. Exam: 09:06 Constitutional: This is a well developed, well nourished patient who is awake, alert, rn and in no acute distress. Ambulatory to room without assistance or difficulty. Head/Face: Normocephalic, atraumatic. Eyes: Periorbital areas with no swelling, redness, or edema. ENT: No stridor, no tongue swelling. + poor dentition without oral abscess Neck: Trachea midline, no crepitus, + bilateral cervical LAD. Neck supple without pain on extension/flexion Cardiovascular: Regular rate and rhythm. No pulse deficits. Respiratory: No increased work of breathing, no retractions or nasal flaring. Abdomen/GI: Soft, non-tender Skin: Warm, dry MS/ Extremity: Pulses equal, no cyanosis. Neurovascular intact. Full, normal range of motion. Equal circumference. Neuro: Awake and alert, GCS 15, oriented to person, place, time, and situation. Cranial nerves II-XII grossly intact. Motor strength 5/5 in all extremities. Sensory grossly intact. Cerebellar exam normal. Normal gait. 10:01 ECG was reviewed by the Attending Physician. rn Vital Signs: 09:14 BP 123 / 65; Pulse 62; Resp 17 S; Temp 98.3(TE); Pulse Ox 100% on R/A; Weight 104.33 kg jd3 (R); Height 5 ft. 6 in. (167.64 cm) (R); Pain 8/10; 10:49 BP 131 / 65; Pulse 75; Resp 18; Pulse Ox 100% on R/A; [place] 09:14 Body Mass Index 37.12 (104.33 kg, 167.64 cm) jd3 MDM: 08:58 Patient medically screened. rn 10:30 Differential diagnosis: dental caries, gingivitis, lymphadenitis. Data reviewed: vital rn signs, nurses notes, lab test result(s), radiologic studies, CT scan, and as a result, I will discharge patient. Counseling: I had a detailed discussion with the patient and/or guardian regarding: the historical points, exam findings, and any diagnostic results supporting the discharge/admit diagnosis, lab results, radiology results, the need for outpatient follow up, to return to the emergency department if symptoms worsen or persist or if there are any questions or concerns that arise at home. Special discussion: I discussed with the patient/guardian in detail that at this point there is no indication for admission to the hospital. It is understood, however, that if the symptoms persist or worsen the patient needs to return immediately for re-evaluation. 07/31 09:05 Order name: CBC with Diff; Complete Time: 10:46 rn 07/31 09:05 Order name: Basic Metabolic Panel; Complete Time: 09:50 rn 07/31 09:05 Order name: IV Start; Complete Time: 09:11 rn 07/31 09:05 Order name: CT Soft Tissue Neck W/contr; Complete Time: 10:30 rn 07/31 09:06 Order name: EKG; Complete Time: 09:06 rn 07/31 10:43 Order name: Manual Differential; Complete Time: 10:46 EDMS 07/31 09:06 Order name: EKG - Nurse/Tech; Complete Time: 09:19 rn EC:01 Rate is 58 beats/min. Rhythm is regular. Left axis deviation noted. QRS is positive in rn lead I and negative in lead aVF. NE interval is normal. QRS interval is normal. QT interval is normal. No Q waves. T waves are Normal. No ST changes noted. Clinical impression: Sinus bradycardia. Interpreted by me. Reviewed by me. Administered Medications: No medications were administered Disposition Summary: 07/31/21 10:31 Discharge Ordered Location: Home rn Problem: new rn Symptoms: have improved rn Condition: Stable rn Diagnosis - Dental caries, unspecified rn Followup: rn - With: Private Physician - When: As needed - Reason: Recheck today's complaints, Re-evaluation by your physician Discharge Instructions: - Discharge Summary Sheet rn - Dental Caries, Adult rn - Dental Pain rn Forms: - Medication Reconciliation Form rn - Thank You Letter rn - Antibiotic rn clinical documentation specialist - Prescription Opioid Use rn Prescriptions: - Augmentin 875-125 mg Oral Tablet - take 1 tablet by ORAL route every 12 hours for 10 days; 20 tablet; Refills: 0, rn Product Selection Permitted Signatures: Dispatcher [facility] Irving Gonzalez MD MD rn Davies, Jonathon, RN RN jd3 Corrections: (The following items were deleted from the chart) 09:13 09:10 PSHx: ; jd3 jd3
[2021-07-31 10:43] LABS: Anisocytosis 1+; Blood Morphology Comment NOTED (NOT SEEN); Hypochromasia 1+; Platelet Estimate DECR
[2021-07-31 10:55] VITALS: TEMP 98.3; O2SAT 100
[2021-07-31 10:56] VITALS: BP 131/65
== END 2021-07-31 10:49 | disposition home or self-care (01) ==
LOC: ER 08:54
DX: K02.9 Dental caries, unspecified (principal); I10 Essential (primary) hypertension; Z88.8 Allergy status to other drugs, medicaments and biological substances
CPT/HCPCS: 93005; 85025; 80048; 36415; 70491; 99284; Q9967

== ENCOUNTER 2021-08-01 10:37 | Emergency (ER) | payer OTHER ==
--- OUTSIDE RECORDS SUMMARY | 2021-08-01 10:51 | XMS REPORT | Continuity of Care Document ---
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 Medical Branch LISINOPRIL 2020-0 Yes [id number] Take 1 [facility] nivers 20 mg 3-09 tablet by ity of tablet 00:00: mouth once [place] 00 daily Medical Branch LISINOPRIL 1-0 2021- No [id number] Take 1 [facility] 20 mg 3-09 05-19 tablet by ity of tablet 00:00: 00:00 [place] 00 :00 daily [facility] LISINOPRIL 2020-0 1- No [id number] Take 1 [facility] 20 mg 3-09 05-19 tablet by ity of tablet 00:00: 00:00 mouth [place] 00 :00 daily Medical Branch clobetasoL 2020-0 Yes [id number] Apply to [facility] 0.05 % 2-09 area(s) 2 ity of cream 00:00: (two) [place] 00 times Medical daily. Branch clobetasoL 1-0 Yes [id number] Apply to [facility] 0.05 % 2-09 area(s) 2 ity of cream 00:00: (two) [place] 00 times Medical daily. Branch clobetasoL 1-0 Yes [id number] Apply to [facility] 0.05 % 2-09 area(s) 2 ity of cream 00:00: (two) [place] 00 times Medical daily. Branch clobetasoL 1-0 Yes [id number] Apply to [facility] 0.05 % 2-09 area(s) 2 ity of cream 00:00: (two) [place] 00 times Medical daily. Branch clobetasoL 1-0 Yes [id number] Apply to [facility] 0.05 % 2-09 area(s) 2 ity of cream 00:00: (two) [place] 00 times Medical daily. Branch clobetasoL 2021-0 Yes [id number] Apply to [facility] 0.05 % 2-09 area(s) 2 ity of cream 00:00: (two) [place] 00 times Medical daily. Branch clobetasoL 2021-0 Yes [id number] Apply to [facility] 0.05 % 2-09 area(s) 2 ity of cream 00:00: (two) [place] 00 times Medical daily. Branch clobetasoL 2021-0 Yes [id number] Apply to [facility] 0.05 % 2-09 area(s) 2 ity of cream 00:00: (two) [place] 00 times Medical daily. Branch clobetasoL 1-0 Yes [id number] Apply to [facility] 0.05 % 2-09 area(s) 2 ity of cream 00:00: (two) [place] 00 times Medical daily. Branch clobetasoL 2020-0 Yes [id number] Apply to [facility] 0.05 % 2-09 area(s) 2 ity of cream 00:00: (two) [place] 00 times Medical daily. Branch clobetasoL 2020-0 Yes [id number] Apply to [facility] 0.05 % 2-09 area(s) 2 ity of cream 00:00: (two) [place] 00 times Medical daily. Branch clobetasoL 2020-0 Yes [id number] Apply to [facility] 0.05 % 2-09 area(s) 2 ity of cream 00:00: (two) [place] 00 times Medical daily. Branch clobetasoL 2020-0 Yes [id number] Apply to [facility] 0.05 % 2-09 area(s) 2 ity of cream 00:00: (two) [place] 00 times Medical daily. [place] azithromyci 2020- No 500mg 500 mg, IV [...] Therapy: 7 days foLIC acid 2020-0 Yes [id number] 1mg Take 1 [facility] 1 mg tablet 1-28 tablet by ity of 00:00: mouth [place] 00 daily. Medical Branch foLIC acid 2020-0 Yes [id number] 1mg Take 1 [facility] 1 mg tablet 1-28 tablet by ity of 00:00: mouth [place] 00 daily. Medical Branch foLIC acid 2020-0 Yes [id number] 1mg Take 1 [facility] 1 mg tablet 1-28 tablet by ity of 00:00: mouth [place] 00 daily. Medical Branch foLIC acid 2020-0 Yes [id number] 1mg Take 1 [facility] 1 mg tablet 1-28 tablet by ity of 00:00: mouth [place] 00 daily. Medical Branch foLIC acid 2020-0 Yes [id number] 1mg Take 1 [facility] 1 mg tablet 1-28 tablet by ity of 00:00: mouth [place] 00 daily. Medical Branch foLIC acid 2020-0 Yes [id number] 1mg Take 1 [facility] 1 mg tablet 1-28 tablet by ity of 00:00: mouth [place] 00 daily. Medical Branch foLIC acid 2020-0 Yes [id number] 1mg Take 1 [facility] 1 mg tablet 1-28 tablet by ity of 00:00: mouth [place] 00 daily. Medical Branch foLIC acid 2020-0 Yes [id number] 1mg Take 1 [facility] 1 mg tablet 1-28 tablet by ity of 00:00: mouth [place] 00 daily. Medical Branch foLIC acid 2020-0 Yes [id number] 1mg Take 1 [facility] 1 mg tablet 1-28 tablet by ity of 00:00: mouth [place] 00 daily. Medical Branch foLIC acid 2020-0 Yes [id number] 1mg Take 1 [facility] 1 mg tablet 1-28 tablet by ity of 00:00: mouth [place] 00 daily. Medical Branch foLIC acid 2020-0 Yes [id number] 1mg Take 1 [facility] 1 mg tablet 1-28 tablet by ity of 00:00: mouth [place] 00 daily. Medical Branch foLIC acid 2020-0 Yes [id number] 1mg Take 1 [facility] 1 mg tablet 1-28 tablet by ity of 00:00: mouth [place] 00 daily. Medical Branch foLIC acid 2020-0 Yes [id number] 1mg Take 1 [facility] 1 mg tablet 1-28 tablet by ity of 00:00: mouth [place] 00 daily. Medical Branch foLIC acid Yes [id number] 1mg Take 1 [facility] 1 mg tablet - tablet by ity of 00:00: mouth [place] 00 daily. Medical Branch amoxicillin 2020- No [id number] 500mg Take 1 [facility] -pot 1-28 02-05 [...] 2 (two) times daily. furosemide 2018-05 Yes [id number] 40mg Take 1 U nivers 40 mg 2-20 tablet by ity of tablet 00:00: mouth [place] 00 every Medical morning Branch and evening. metFORMIN 2018-05 Yes [id number] 500mg Take 1 [facility] 500 mg 2-20 tablet by ity of tablet 00:00: mouth 2 [place] 00 (two) Medical times Branch daily with meals. carvedilol 2018-05 Yes [id number] 3.125mg Take 1 [facility] 3.125 mg 2-20 tablet by ity of tablet 00:00: mouth 2 [place] 00 (two) Medical times Branch daily with meals. lisinopril 2018-05 Yes [id number] 20mg Take 1 U nivers 20 mg 2-20 tablet by ity of tablet 00:00: mouth [place] 00 daily. Medical Branch spironolact 2018-05 Yes [id number] 25mg Take 1 [facility] one 25 mg 2-20 tablet by ity o f tablet 00:00: mouth 2 [place] 00 (two) Medical times Branch daily. rifAXIMin 2018-05 Yes [id number] 550mg Take 1 [facility] 550 mg 2-20 tablet by ity of tablet 00:00: mouth 2 [place] 00 (two) Medical times Branch daily. albuterol 2018-05 Yes [id number] 2{puff} Inhale 2 [facility] 90 2-20 Puffs ity of mcg/actuati 00:00: every 6 [place] on inhaler 00 (six) Medical hours as Branch needed for Wheezing or Shortness of Breath. Pitavastati 2018-05 Yes [id number] 2mg Take 2 mg [facility] n (LIVALO) 2-20 by mouth ity o f 2 mg Tab 00:00: daily. 00 Medical Branch Lancets 2018-05 Yes [id number] Use BID, U nivers Misc 2-20 DX E11.9 ity of 00:00: ([facility] 00 upon Medical insurance Branch approval) blood sugar 2018-05 Yes [id number] Use BID, [facility] diagnostic 2-20 DX E11.9 ity o f (ACCU-CHEK 00:00: ([facility] GUIDE) [address] [place] [address] strip insurance Branch approval) lactulose 2018-05 Yes [id number] 15mL Take 15 mL [facility] 10 gram/15 2-20 by mouth 3 ity of mL solution 00:00: (three) [place] 00 times Medical daily. Branch hydrOXYzine 2018-05 Yes [id number] 50mg Take 1 U nivers 50 mg 2-20 tablet by ity of tablet 00:00: mouth 3 [place] 00 (three) Medical times Branch daily as needed for Itching. calcipotrie 2018-05 Yes [id number] Apply to [facility] ne 0.005 % 2-20 area(s) 2 ity of cream 00:00: (two) [place] 00 times Medical daily. Branch clobetasol 2018-05 Yes [id number] Apply to [facility] 0.05 % 2-20 area(s) 2 ity of cream 00:00: (two) [place] 00 times Medical daily. Branch foLIC acid 2018-05 Yes [id number] 1mg Take 1 [facility] 1 mg tablet 2-20 tablet by ity of 00:00: mouth [place] 00 daily. Medical Branch pantoprazol 2018-05 Yes [id number] 40mg Take 1 [facility] e 40 mg EC 2-20 tablet by ity of tablet 00:00: mouth [place] 00 daily. Medical Branch triamcinolo 2018-05 Yes [id number] Apply to [facility] ne 2-20 affected ity of acetonide 00:00: area(s) 2 [place] 0.1 % cream 00 (two) Medical times Branch daily. furosemide 2018-05 Yes [id number] 40mg Take 1 U nivers 40 mg 2-20 tablet by ity of tablet 00:00: mouth 00 every Medical morning Branch and evening. metFORMIN 2018- Yes [id number] 500mg Take 1 [facility] 500 mg 2-20 tablet by ity of tablet 00:00: mouth 2 (two) Medical times Branch daily with meals. carvedilol 2018-05 Yes [id number] 3.125mg Take 1 [facility] 3.125 mg 2-20 tablet by ity of tablet 00:00: mouth 2 (two) Medical times Branch daily with meals. lisinopril 2018-05 Yes [id number] 20mg Take 1 U nivers 20 mg 2-20 tablet by ity of tablet 00:00: mouth daily. Medical Branch spironolact 2018-05 Yes [id number] 25mg Take 1 [facility] one 25 mg 2-20 tablet by ity o f tablet 00:00: mouth 2 (two) Medical times Branch daily. rifAXIMin 2018-05 Yes [id number] 550mg Take 1 [facility] 550 mg 2-20 tablet by ity of tablet 00:00: mouth 2 (two) Medical times Branch daily. albuterol 2018-05 Yes [id number] 2{puff} Inhale 2 [facility] 90 2-20 Puffs ity of mcg/actuati 00:00: every 6 [place] on inhaler 00 (six) Medical hours as Branch needed for Wheezing or Shortness of Breath. Pitavastati 2018-05 Yes [id number] 2mg Take 2 mg [facility] n (LIVALO) 2-20 by mouth ity o f 2 mg Tab 00:00: daily. [place] 00 Medical Branch Lancets 2018- Yes [id number] Use BID, U nivers Misc 2-20 DX E11.9 ity of 00:00: ([facility] [place] 00 upon Medical insurance Branch approval) blood sugar 2018-05 Yes [id number] Use BID, [facility] diagnostic 2-20 DX E11.9 ity o f (ACCU-CHEK 00:00: ([facility] GUIDE) [facility] strip insurance Branch approval) lactulose 2018-05 Yes [id number] 15mL Take 15 mL [facility] 10 gram/15 2-20 by mouth 3 ity of mL solution 00:00: (three) [place] 00 times Medical daily. Branch hydrOXYzine 2018-05 Yes [id number] 50mg Take 1 U nivers 50 mg 2-20 tablet by ity of tablet 00:00: mouth 3 [place] 00 (three) Medical times Branch daily as needed for Itching. calcipotrie 2018-05 Yes [id number] Apply to Univers ne 0.005 % 2-20 area(s) 2 ity of cream 00:00: (two) [place] 00 times Medical daily. Branch clobetasol 2018-05 Yes [id number] Apply to [facility] 0.05 % 2-20 area(s) 2 ity of cream 00:00: (two) [place] 00 times Medical daily. Branch foLIC acid 2018-05 Yes [id number] 1mg Take 1 [facility] 1 mg tablet 2-20 tablet by ity of 00:00: mouth [place] 00 daily. Medical Branch pantoprazol 2018-05 Yes [id number] 40mg Take 1 [facility] e 40 mg EC 2-20 tablet by ity of tablet 00:00: mouth [place] 00 daily. Medical Branch triamcinolo 2018-05 Yes [id number] Apply to [facility] ne 2-20 affected ity of acetonide 00:00: area(s) 2 [place] 0.1 % cream 00 (two) Medical times Branch daily. furosemide 2018-05 Yes [id number] 40mg Take 1 U nivers 40 mg 2-20 tablet by ity of tablet 00:00: mouth [place] 00 every Medical morning Branch and evening. metFORMIN 2018-05 Yes [id number] 500mg Take 1 [facility] 500 mg 2-20 tablet by ity of tablet 00:00: mouth 2 [place] 00 (two) Medical times Branch daily with meals. carvedilol 2018-05 Yes [id number] 3.125mg Take 1 [facility] 3.125 mg 2-20 tablet by ity of tablet 00:00: mouth 2 [place] 00 (two) Medical times Branch daily with meals. lisinopril 2018-05 Yes [id number] 20mg Take 1 U nivers 20 mg 2-20 tablet by ity of tablet 00:00: mouth [place] 00 daily. Medical Branch spironolact 2018-05 Yes [id number] 25mg Take 1 [facility] one 25 mg 2-20 tablet by ity o f tablet 00:00: mouth 2 [place] 00 (two) Medical times Branch daily. rifAXIMin 2018-05 Yes [id number] 550mg Take 1 [facility] 550 mg 2-20 tablet by ity of tablet 00:00: mouth 2 [place] 00 (two) Medical times Branch daily. albuterol 2018-05 Yes [id number] 2{puff} Inhale 2 [facility] 90 2-20 Puffs ity of mcg/actuati 00:00: every 6 [place] on inhaler 00 (six) Medical hours as Branch needed for Wheezing or Shortness of Breath. Pitavastati 2018-05 Yes [id number] 2mg Take 2 mg [facility] n (LIVALO) 2-20 by mouth ity o f 2 mg Tab 00:00: daily. Medical Branch Lancets 2018-05 Yes [id number] Use BID, U nivers Misc 2-20 DX E11.9 ity of 00:00: ([facility] 00 upon Medical insurance Branch approval) blood sugar 2018-05 Yes [id number] Use BID, [facility] diagnostic 2-20 DX E11.9 ity o f (ACCU-CHEK 00:00: ([facility] GUIDE) [address] [place] [address] Medical strip insurance Branch approval) lactulose 2018-05 Yes [id number] 15mL Take 15 mL [facility] 10 gram/15 2-20 by mouth 3 ity of mL solution 00:00: (three) [place] 00 times Medical daily. Branch hydrOXYzine 2018-05 Yes [id number] 50mg Take 1 U nivers 50 mg 2-20 tablet by ity of tablet 00:00: mouth 3 [place] 00 (three) Medical times Branch daily as needed for Itching. calcipotrie 2018-05 Yes [id number] Apply to Univers ne 0.005 % 2-20 area(s) 2 ity of cream 00:00: (two) [place] 00 times Medical daily. Branch clobetasol 2018- Yes [id number] Apply to [facility] 0.05 % 2-20 area(s) 2 ity of cream 00:00: (two) [place] times Medical daily. Branch pantoprazol 2018-05 Yes [id number] 40mg Take 1 [facility] e 40 mg EC 2-20 tablet by ity of tablet 00:00: mouth [place] daily. Medical Branch triamcinolo 2018-05 Yes [id number] Apply to Univers ne 2-20 affected ity of acetonide 00:00: area(s) 2 [place] 0.1 % cream 00 (two) Medical times Branch daily. furosemide 2018-05 Yes [id number] 40mg Take 1 U nivers 40 mg 2-20 tablet by ity of tablet 00:00: mouth 00 every Medical morning Branch and evening. metFORMIN 2018-05 Yes [id number] 500mg Take 1 [facility] 500 mg 2-20 tablet by ity of tablet 00:00: mouth 2 (two) Medical times Branch daily with meals. carvedilol 2018-05 Yes [id number] 3.125mg Take 1 [facility] 3.125 mg 2-20 tablet by ity of tablet 00:00: mouth 2 (two) Medical times Branch daily with meals. lisinopril 2018-05 Yes [id number] 20mg Take 1 U nivers 20 mg 2-20 tablet by ity of tablet 00:00: mouth daily. Medical Branch spironolact 2018-05 Yes [id number] 25mg Take 1 [facility] one 25 mg 2-20 tablet by ity o f tablet 00:00: mouth 2 (two) Medical times Branch daily. rifAXIMin 2018-05 Yes [id number] 550mg Take 1 [facility] 550 mg 2-20 tablet by ity of tablet 00:00: mouth (two) Medical times Branch daily. albuterol 2018-05 Yes [id number] 2{puff} Inhale 2 [facility] 90 2-20 Puffs ity of mcg/actuati 00:00: every 6 [place] on inhaler 00 (six) Medical hours as Branch needed for Wheezing or Shortness of Breath. Pitavastati 2018-05 Yes [id number] 2mg Take 2 mg [facility] n (LIVALO) 2-20 by mouth ity o f 2 mg Tab 00:00: daily. [place] 00 Medical Branch Lancets 2018- Yes [id number] Use BID, U nivers Misc 2-20 DX E11.9 ity of 00:00: (Brand [place] 00 upon Medical insurance Branch approval) blood sugar 2018-05 Yes [id number] Use BID, Univers diagnostic 2-20 DX E11.9 ity o f (ACCU-CHEK 00:00: ([facility] GUIDE) [address] [place] [address] Medical strip insurance Branch approval) lactulose 2018-05 Yes [id number] 15mL Take 15 mL [facility] 10 gram/15 2-20 by mouth 3 ity of mL solution 00:00: (three) [place] 00 times Medical daily. Branch hydrOXYzine 2018-05 Yes [id number] 50mg Take 1 U nivers 50 mg 2-20 tablet by ity of tablet 00:00: mouth 3 [place] 00 (three) Medical times Branch daily as needed for Itching. calcipotrie 2018-05 Yes [id number] Apply to Univers ne 0.005 % 2-20 area(s) 2 ity of cream 00:00: (two) [place] 00 times Medical daily. Branch clobetasol 2018-05 Yes [id number] Apply to [facility] 0.05 % 2-20 area(s) 2 ity of cream 00:00: (two) [place] 00 times Medical daily. Branch pantoprazol 2018-05 Yes [id number] 40mg Take 1 [facility] e 40 mg EC 2-20 tablet by ity of tablet 00:00: mouth [place] 00 daily. Medical Branch triamcinolo 2018-05 Yes [id number] Apply to Univers ne 2-20 affected ity of acetonide 00:00: area(s) 2 [place] 0.1 % cream 00 (two) Medical times Branch daily. albuterol 2018-05 Yes [id number] 2{puff} Inhale 2 [facility] 90 2-20 Puffs ity of mcg/actuati 00:00: every 6 [place] on inhaler 00 (six) Medical hours as Branch needed for Wheezing or Shortness of Breath. Lancets 2018-05 Yes [id number] Use BID, U nivers Misc 2-20 DX E11.9 ity of 00:00: (Brand [place] 00 upon Medical insurance Branch approval) lactulose 2018-05 Yes [id number] 15mL Take 15 mL [facility] 10 gram/15 2-20 by mouth 3 ity of mL solution 00:00: (three) [place] 00 times Medical daily. Branch calcipotrie 2018-05 Yes [id number] Apply to Univers ne 0.005 % 2-20 area(s) 2 ity of cream 00:00: (two) [place] 00 times Medical daily. Branch triamcinolo 2018-05 Yes [id number] Apply to Univers ne 2-20 affected ity of acetonide 00:00: area(s) 2 [place] 0.1 % cream 00 (two) Medical times Branch daily. furosemide 2018-05 Yes [id number] 40mg Take 1 U nivers 40 mg 2-20 tablet by ity of tablet 00:00: mouth 00 every Medical morning Branch and evening. metFORMIN 2018-05 Yes [id number] 500mg Take 1 [facility] 500 mg 2-20 tablet by ity of tablet 00:00: mouth 2 (two) Medical times Branch daily with meals. carvedilol 2018-05 Yes [id number] 3.125mg Take 1 [facility] 3.125 mg 2-20 tablet by ity of tablet 00:00: mouth 2 (two) Medical times Branch daily with meals. spironolact 2018-05 Yes [id number] 25mg Take 1 [facility] one 25 mg 2-20 tablet by ity o f tablet 00:00: mouth 2 (two) Medical times Branch daily. rifAXIMin 2018-05 Yes [id number] 550mg Take 1 [facility] 550 mg 2-20 tablet by ity of tablet 00:00: mouth 2 [place] (two) Medical times Branch daily. albuterol 2018-05 Yes [id number] 2{puff} Inhale 2 [facility] 90 2-20 Puffs ity of mcg/actuati 00:00: every 6 [place] on inhaler 00 (six) Medical hours as Branch needed for Wheezing or Shortness of Breath. Pitavastati 2018-05 Yes [id number] 2mg Take 2 mg [facility] n (LIVALO) 2-20 by mouth ity o f 2 mg Tab 00:00: daily. [place] Medical Branch Lancets 2018-05 Yes [id number] Use BID, U nivers Misc 2-20 DX E11.9 ity of 00:00: ([facility] 00 upon Medical insurance Branch approval) blood sugar 2018-05 Yes [id number] Use BID, [facility] diagnostic 2-20 DX E11.9 ity o f (ACCU-CHEK 00:00: ([facility] GUIDE) [address] [place] [address] Medical strip insurance Branch approval) lactulose 2018-05 Yes [id number] 15mL Take 15 mL [facility] 10 gram/15 2-20 by mouth 3 ity of mL solution 00:00: (three) [place] 00 times Medical daily. Branch hydrOXYzine 2018-05 Yes [id number] 50mg Take 1 U nivers 50 mg 2-20 tablet by ity of tablet 00:00: mouth 3 00 (three) Medical times Branch daily as needed for Itching. calcipotrie 2018-05 Yes [id number] Apply to Univers ne 0.005 % 2-20 area(s) 2 ity of cream 00:00: (two) times Medical daily. Branch pantoprazol 2018-05 Yes [id number] 40mg Take 1 [facility] e 40 mg EC 2-20 tablet by ity of tablet 00:00: mouth daily. Medical Branch triamcinolo 2018-05 Yes [id number] Apply to Univers ne 2-20 affected ity of acetonide 00:00: area(s) 2 [place] 0.1 % cream 00 (two) Medical times Branch daily. furosemide 2018-05 Yes [id number] 40mg Take 1 U nivers 40 mg 2-20 tablet by ity of tablet 00:00: mouth every Medical morning Branch and evening. metFORMIN 2018- Yes [id number] 500mg Take 1 [facility] 500 mg 2-20 tablet by ity of tablet 00:00: mouth (two) Medical times Branch daily with meals. carvedilol 2018-05 Yes [id number] 3.125mg Take 1 [facility] 3.125 mg 2-20 tablet by ity of tablet 00:00: mouth (two) Medical times Branch daily with meals. spironolact 2018-05 Yes [id number] 25mg Take 1 [facility] one 25 mg 2-20 tablet by ity o f tablet 00:00: mouth (two) Medical times Branch daily. rifAXIMin 2018-05 Yes [id number] 550mg Take 1 [facility] 550 mg 2-20 tablet by ity of tablet 00:00: mouth (two) Medical times Branch daily. albuterol 2018-05 Yes [id number] 2{puff} Inhale 2 [facility] 90 2-20 Puffs ity of mcg/actuati 00:00: every 6 [place] on inhaler 00 (six) Medical hours as Branch needed for Wheezing or Shortness of Breath. Pitavastati 2018-05 Yes [id number] 2mg Take 2 mg [facility] n (LIVALO) 2-20 by mouth ity o f 2 mg Tab 00:00: daily. [place] [address] Medical Branch Lancets 2019- Yes [id number] Use BID, U nivers Misc 2-20 DX E11.9 ity of 00:00: (Brand [place] [address] upon Medical insurance Branch approval) blood sugar 2018-05 Yes [id number] Use BID, Univers diagnostic 2-20 DX E11.9 ity o f (ACCU-CHEK 00:00: (Brand [place] GUIDE) 00 upon Medical strip insurance Branch approval) lactulose 2018-05 Yes [id number] 15mL Take 15 mL [facility] 10 gram/15 2-20 by mouth 3 ity of mL solution 00:00: (three) [place] 00 times Medical daily. Branch hydrOXYzine 2018-05 Yes [id number] 50mg Take 1 U nivers 50 mg 2-20 tablet by ity of tablet 00:00: mouth 3 [place] 00 (three) Medical times Branch daily as needed for Itching. calcipotrie 2018-05 Yes [id number] Apply to Univers ne 0.005 % 2-20 area(s) 2 ity of cream 00:00: (two) [place] 00 times Medical daily. Branch pantoprazol 2018-05 Yes [id number] 40mg Take 1 [facility] e 40 mg EC 2-20 tablet by ity of tablet 00:00: mouth [place] 00 daily. Medical Branch triamcinolo 2018-05 Yes [id number] Apply to Univers ne 2-20 affected ity of acetonide 00:00: area(s) 2 [place] 0.1 % cream 00 (two) Medical times Branch daily. furosemide 2018-05 Yes [id number] 40mg Take 1 U nivers 40 mg 2-20 tablet by ity of tablet 00:00: mouth [place] 00 every Medical morning Branch and evening. metFORMIN 2018-05 Yes [id number] 500mg Take 1 [facility] 500 mg 2-20 tablet by ity of tablet 00:00: mouth 2 [place] (two) Medical times Branch daily with meals. carvedilol 2018-05 Yes [id number] 3.125mg Take 1 [facility] 3.125 mg 2-20 tablet by ity of tablet 00:00: mouth 2 [place] (two) Medical times Branch daily with meals. spironolact 2018-05 Yes [id number] 25mg Take 1 [facility] one 25 mg 2-20 tablet by ity o f tablet 00:00: mouth 2 (two) Medical times Branch daily. rifAXIMin 2018-05 Yes [id number] 550mg Take 1 [facility] 550 mg 2-20 tablet by ity of tablet 00:00: mouth 2 [place] 00 (two) Medical times Branch daily. albuterol 2018-05 Yes [id number] 2{puff} Inhale 2 [facility] 90 2-20 Puffs ity of mcg/actuati 00:00: every 6 [place] on inhaler 00 (six) Medical hours as Branch needed for Wheezing or Shortness of Breath. Pitavastati 2018-05 Yes [id number] 2mg Take 2 mg [facility] n (LIVALO) 2-20 by mouth ity o f 2 mg Tab 00:00: daily. 00 Medical Branch Lancets 2018- Yes [id number] Use BID, U nivers Misc 2-20 DX E11.9 ity of 00:00: (Brand [place] 00 upon Medical insurance Branch approval) blood sugar 2018-05 Yes [id number] Use BID, Univers diagnostic 2-20 DX E11.9 ity o f (ACCU-CHEK 00:00: ([facility] GUIDE) [address] [place] [address] Medical strip insurance Branch approval) lactulose 2018-05 Yes [id number] 15mL Take 15 mL [facility] 10 gram/15 2-20 by mouth 3 ity of mL solution 00:00: (three) [place] 00 times Medical daily. Branch hydrOXYzine 2018-05 Yes [id number] 50mg Take 1 U nivers 50 mg 2-20 tablet by ity of tablet 00:00: mouth 3 [place] 00 (three) Medical times Branch daily as needed for Itching. calcipotrie 2018-05 Yes [id number] Apply to Univers ne 0.005 % 2-20 area(s) 2 ity of cream 00:00: (two) [place] 00 times Medical daily. Branch pantoprazol 2018-05 Yes [id number] 40mg Take 1 [facility] e 40 mg EC 2-20 tablet by ity of tablet 00:00: mouth [place] 00 daily. Medical Branch triamcinolo 2018-05 Yes [id number] Apply to Univers ne 2-20 affected ity of acetonide 00:00: area(s) 2 [place] 0.1 % cream 00 (two) Medical times Branch daily. albuterol 2018-05 Yes [id number] 2{puff} Inhale 2 [facility] 90 2-20 Puffs ity of mcg/actuati 00:00: every 6 [place] on inhaler 00 (six) Medical hours as Branch needed for Wheezing or Shortness of Breath. Lancets 2018-05 Yes [id number] Use BID, U nivers Misc 2-20 DX E11.9 ity of 00:00: ([address] insurance Branch approval) lactulose 2018-05 Yes [id number] 15mL Take 15 mL [facility] 10 gram/15 2-20 by mouth 3 ity of mL solution 00:00: (three) [place] 00 times Medical daily. Branch calcipotrie 2018-05 Yes [id number] Apply to Univers ne 0.005 % 2-20 area(s) 2 ity of cream 00:00: (two) [place] 00 times Medical daily. Branch triamcinolo 2018-05 Yes [id number] Apply to Univers ne 2-20 affected ity of acetonide 00:00: area(s) 2 [place] 0.1 % cream 00 (two) Medical times Branch daily. albuterol 2018-05 Yes [id number] 2{puff} Inhale 2 [facility] 90 2-20 Puffs ity of mcg/actuati 00:00: every 6 [place] on inhaler 00 (six) Medical hours as Branch needed for Wheezing or Shortness of Breath. Lancets 2018- Yes [id number] Use BID, U nivers Misc 2-20 DX E11.9 ity of 00:00: ([address] Branch approval) lactulose 2018-05 Yes [id number] 15mL Take 15 mL [facility] 10 gram/15 2-20 by mouth 3 ity of mL solution 00:00: (three) [place] 00 times Medical daily. Branch calcipotrie 2018-05 Yes [id number] Apply to [facility] ne 0.005 % 2-20 area(s) 2 ity of cream 00:00: (two) [place] 00 times Medical daily. Branch triamcinolo 2018-05 Yes [id number] Apply to Univers ne 2-20 affected ity of acetonide 00:00: area(s) 2 [place] 0.1 % cream 00 (two) Medical times Branch daily. albuterol 2018-05 Yes [id number] 2{puff} Inhale 2 [facility] 90 2-20 Puffs ity of mcg/actuati 00:00: every 6 [place] on inhaler 00 (six) Medical hours as Branch needed for Wheezing or Shortness of Breath. Lancets 2019- Yes [id number] Use BID, U n[facility] Misc 2-20 DX E11.9 ity of 00:00: (Brand [place] 00 upon Medical insurance Branch approval) lactulose 2018-05 Yes [id number] 15mL Take 15 mL [facility] 10 gram/15 2-20 by mouth 3 ity of mL solution 00:00: (three) [place] 00 times Medical daily. Branch calcipotrie 2018-05 Yes [id number] Apply to [facility] ne 0.005 % 2-20 area(s) 2 ity of cream 00:00: (two) [place] 00 times Medical daily. Branch triamcinolo 2018-05 Yes [id number] Apply to [facility] ne 2-20 affected ity of acetonide 00:00: area(s) 2 [place] 0.1 % cream 00 (two) Medical times Branch daily. albuterol 2018-05 Yes [id number] 2{puff} Inhale 2 [facility] 90 2-20 Puffs ity of mcg/actuati 00:00: every 6 [place] on inhaler 00 (six) Medical hours as Branch needed for Wheezing or Shortness of Breath. Lancets 2018-05 Yes [id number] Use BID, U nivers Misc 2-20 DX E11.9 ity of 00:00: ([address] Branch approval) lactulose 2018-05 Yes [id number] 15mL Take 15 mL [facility] 10 gram/15 2-20 by mouth 3 ity of mL solution 00:00: (three) [place] 00 times Medical daily. Branch calcipotrie 2018-05 Yes [id number] Apply to [facility] ne 0.005 % 2-20 area(s) 2 ity of cream 00:00: (two) [place] 00 times Medical daily. Branch triamcinolo 2018-05 Yes [id number] Apply to [facility] ne 2-20 affected ity of acetonide 00:00: area(s) 2 [place] 0.1 % cream 00 (two) Medical times Branch daily. albuterol 2018-05 Yes [id number] 2{puff} Inhale 2 [facility] 90 2-20 Puffs ity of mcg/actuati 00:00: every 6 [place] on inhaler 00 (six) Medical hours as Branch needed for Wheezing or Shortness of Breath. Lancets 2018-05 Yes [id number] Use BID, U nivers Misc 2-20 DX E11.9 ity of 00:00: ([address] Branch approval) lactulose 2018-05 Yes [id number] 15mL Take 15 mL [facility] 10 gram/15 2-20 by mouth 3 ity of mL solution 00:00: (three) [place] 00 times Medical daily. Branch calcipotrie 2018-05 Yes [id number] Apply to [facility] ne 0.005 % 2-20 area(s) 2 ity of cream 00:00: (two) [place] 00 times Medical daily. Branch triamcinolo 2018-05 Yes [id number] Apply to [facility] ne 2-20 affected ity of acetonide 00:00: area(s) 2 [place] 0.1 % cream 00 (two) Medical times Branch daily. albuterol 2018-05 Yes [id number] 2{puff} Inhale 2 [facility] 90 2-20 Puffs ity of mcg/actuati 00:00: every 6 [place] [facility] on inhaler 00 (six) Medical hours as Branch needed for Wheezing or Shortness of Breath. Lancets 2018-05 Yes [id number] Use BID, U nivers Misc 2-20 DX E11.9 ity of 00:00: (Brand [address] Medical insurance Branch approval) lactulose 2018-05 Yes [id number] 15mL Take 15 mL [facility] 10 gram/15 2-20 by mouth 3 ity of mL solution 00:00: (three) [place] 00 times Medical daily. Branch calcipotrie 2018-05 Yes [id number] Apply to [facility] ne 0.005 % 2-20 area(s) 2 ity of cream 00:00: (two) [place] 00 times Medical daily. Branch triamcinolo 2018-05 Yes [id number] Apply to [facility] ne 2-20 affected ity of acetonide 00:00: area(s) 2 [place] 0.1 % cream 00 (two) Medical times Branch daily. albuterol 2018-05 Yes [id number] 2{puff} Inhale 2 [facility] 90 2-20 Puffs ity of mcg/actuati 00:00: every 6 [place] on inhaler 00 (six) Medical hours as Branch needed for Wheezing or Shortness of Breath. Lancets 2018-05 Yes [id number] Use BID, U nivers Misc 2-20 DX E11.9 ity of 00:00: (Brand [address] insurance Branch approval) lactulose 2018-05 Yes [id number] 15mL Take 15 mL [facility] 10 gram/15 2-20 by mouth 3 ity of mL solution 00:00: (three) [place] 00 times Medical daily. Branch calcipotrie 2018-05 Yes [id number] Apply to [facility] ne 0.005 % 2-20 area(s) 2 ity of cream 00:00: (two) [place] 00 times Medical daily. Branch triamcinolo 2018-05 Yes [id number] Apply to [facility] ne 2-20 affected ity of acetonide 00:00: area(s) 2 [place] 0.1 % cream 00 (two) Medical times Branch daily. albuterol 2018-05 Yes [id number] 2{puff} Inhale 2 [facility] 90 2-20 Puffs ity of mcg/actuati 00:00: every 6 [place] on inhaler 00 (six) Medical hours as Branch needed for Wheezing or Shortness of Breath. Lancets 2018-05 Yes [id number] Use BID, U nivers Misc 2-20 DX E11.9 ity of 00:00: (Brand [address] Branch approval) lactulose 2018-05 Yes [id number] 15mL Take 15 mL [facility] 10 gram/15 2-20 by mouth 3 ity of mL solution 00:00: (three) [place] 00 times Medical daily. Branch calcipotrie 2018-05 Yes [id number] Apply to [facility] ne 0.005 % 2-20 area(s) 2 ity of cream 00:00: (two) [place] 00 times Medical daily. Branch triamcinolo 2018-05 Yes [id number] Apply to [facility] ne 2-20 affected ity of acetonide 00:00: area(s) 2 [place] 0.1 % cream 00 (two) Medical times Branch daily. albuterol 2018-05 Yes [id number] 2{puff} Inhale 2 [facility] 90 2-20 Puffs ity of mcg/actuati 00:00: every 6 [place] on inhaler 00 (six) Medical hours as Branch needed for Wheezing or Shortness of Breath. Lancets 2018-05 Yes [id number] Use BID, U nivers Misc 2-20 DX E11.9 ity of 00:00: (Brand [address] insurance Branch approval) lactulose 2018-05 Yes [id number] 15mL Take 15 mL [facility] 10 gram/15 2-20 by mouth 3 ity of mL solution 00:00: (three) [place] 00 times Medical daily. Branch calcipotrie 2018-05 Yes [id number] Apply to [facility] ne 0.005 % 2-20 area(s) 2 ity of cream 00:00: (two) [place] 00 times Medical daily. Branch triamcinolo 2018-05 Yes [id number] Apply to [facility] ne 2-20 affected ity of acetonide 00:00: area(s) 2 [place] 0.1 % cream 00 (two) Medical times Branch daily. furosemide 2018-05- No [id number] 40mg Take 1 [facility] 40 mg 2-20 05-19 tablet by ity of tablet 00:00: 00:00 mouth [place] 00 :00 every Medical morning Branch and evening. metFORMIN 2018-05- No [id number] 500mg Take 1 [facility] 500 mg 2-20 05-19 tablet by ity of tablet 00:00: 00:00 mouth 2 [place] 00 :00 (two) Medical times Branch daily with meals. carvedilol 2018-05- No [id number] 3.125mg Take 1 [facility] 3.125 mg 2-20 05-19 tablet by ity o f tablet 00:00: 00:00 mouth 2 [place] 00 :00 (two) Medical times Branch daily with meals. spironolact 2018-05- No [id number] 25mg Take 1 [facility] one 25 mg 2-20 05-19 tablet by ity of tablet 00:00: 00:00 mouth 2 [place] 00 :00 (two) Medical times Branch daily. rifAXIMin 2018-05- No [id number] 550mg Take 1 [facility] 550 mg 2-20 05-19 tablet by ity of tablet 00:00: 00:00 mouth 2 [place] 00 :00 (two) Medical times Branch daily. Pitavastati 2018-05- No [id number] 2mg Take 2 mg [facility] n (LIVALO) 2-20 05-19 by mouth ity of 2 mg Tab 00:00: 00:00 daily. [place] 00 :00 Medical Branch blood sugar 2018-05- No [id number] Use BID, [facility] diagnostic 2-20 05-19 DX E11.9 ity of (ACCU-CHEK 00:00: 00:00 (Brand [place]) 00 :00 upon Medical strip insurance Branch approval) hydrOXYzine 2018-05- No [id number] 50mg Take 1 [facility] 50 mg 2-20 05-19 tablet by ity of tablet 00:00: 00:00 mouth 3 [place] 00 :00 (three) Medical times Branch daily as needed for Itching. pantoprazol 2018-05- No [id number] 40mg Take 1 [facility] e 40 mg EC 2-20 05-19 tablet by ity of tablet 00:00: 00:00 mouth [place] 00 :00 daily. Medical Branch furosemide 2018-05- No [id number] 40mg Take 1 [facility] 40 mg 2-20 05-19 tablet by ity of tablet 00:00: 00:00 mouth [place] 00 :00 every Medical morning Branch and evening. metFORMIN 2018-05- No [id number] 500mg Take 1 [facility] 500 mg 2-20 05-19 tablet by ity of tablet 00:00: 00:00 mouth 2 [place] 00 :00 (two) Medical times Branch daily with meals. carvedilol 2018-05- No [id number] 3.125mg Take 1 [facility] 3.125 mg 2-20 05-19 tablet by ity o f tablet 00:00: 00:00 mouth 2 [place] 00 :00 (two) Medical times Branch daily with meals. spironolact 2018-05- No [id number] 25mg Take 1 [facility] one 25 mg 2-20 05-19 tablet by ity of tablet 00:00: 00:00 mouth 2 [place] 00 :00 (two) Medical times Branch daily. rifAXIMin 2018-05- No [id number] 550mg Take 1 [facility] 550 mg 2-20 05-19 tablet by ity of tablet 00:00: 00:00 mouth 2 [place] 00 :00 (two) Medical times Branch daily. Pitavastati 2018-05- No [id number] 2mg Take 2 mg [facility] n (LIVALO) 2-20 05-19 by mouth ity of 2 mg Tab 00:00: 00:00 daily. [place] 00 :00 Medical Branch blood sugar 2018-05- No [id number] Use BID, [facility] diagnostic 2-20 05-19 DX E11.9 ity of (ACCU-CHEK 00:00: 00:00 ([place] s GUIDE) 00 :00 upon Medical strip insurance Branch approval) hydrOXYzine 2018-05- No [id number] 50mg Take 1 [facility] 50 mg 2-20 - tablet by ity of tablet 00:00: 00:00 mouth 3 [place] 00 :00 (three) Medical times Branch daily as needed for Itching. pantoprazol 2018-05- No [id number] 40mg Take 1 [facility] e 40 mg EC 2-20 10-14 tablet by ity of tablet 00:00: 00:00 mouth [place] 00 :00 daily. Medical Branch lisinopril 2018-05- No [id number] 20mg Take 1 [facility] 20 mg 2-20 - tablet by ity of tablet 00:00: 00:00 mouth [place] 00 :00 daily. Medical Branch foLIC acid 2018-05- No [id number] 1mg Take 1 [facility] 1 mg tablet 07-18 tablet by it y of 00:00: 00:00 mouth [place] 00 :00 daily. Medical Branch foLIC acid 2018-05- No [id number] 1mg Take 1 [facility] 1 mg tablet 07-18 tablet by it y of 00:00: 00:00 mouth [place] 00 :00 daily. Medical Branch doxycycline 2019-0 Yes [id number] 100mg Take 1 [facility] 100 mg 8-29 tablet by ity of tablet 00:00: mouth (two) Medical times Branch daily. doxycycline 2019-0 Yes [id number] 100mg Take 1 [facility] 100 mg 8-29 tablet by ity of tablet 00:00: mouth 2 (two) Medical times Branch daily. doxycycline 2019-0 Yes [id number] 100mg Take 1 [facility] 100 mg 8-29 tablet by ity of tablet 00:00: mouth 2 (two) Medical times Branch daily. doxycycline 2019-0 Yes [id number] 100mg Take 1 [facility] 100 mg 8-29 tablet by ity of tablet 00:00: mouth 2 (two) Medical times Branch daily. doxycycline 2019-0 Yes [id number] 100mg Take 1 [facility] 100 mg 8-29 tablet by ity of tablet 00:00: mouth 2 (two) Medical times Branch daily. doxycycline 2019-0 Yes [id number] 100mg Take 1 [facility] 100 mg 8-29 tablet by ity of tablet 00:00: mouth 2 (two) Medical times Branch daily. doxycycline 2019-0 Yes [id number] 100mg Take 1 [facility] 100 mg 8-29 tablet by ity of tablet 00:00: mouth 2 00 (two) Medical times Branch daily. doxycycline Yes [id number] 100mg Take 1 [facility] 100 mg 8-29 tablet by ity of tablet 00:00: mouth 2 00 (two) Medical times Branch daily. doxycycline Yes [id number] 100mg Take 1 [facility] 100 mg 8-29 tablet by ity of tablet 00:00: mouth 2 (two) Medical times Branch daily. doxycycline Yes [id number] 100mg Take 1 [facility] 100 mg 8-29 tablet by ity of tablet 00:00: mouth 2 [place] (two) Medical times Branch daily. doxycycline 2020- No [id number] 100mg Take 1 [facility] 100 mg 8-29 05-19 tablet by ity of tablet 00:00: 00:00 mouth 2 [place] 00 :00 (two) Medical times Branch daily. doxycycline 2020- No [id number] 100mg Take 1 [facility] 100 mg 8-29 05-19 tablet by ity of tablet 00:00: 00:00 mouth 2 [place] 00 :00 (two) Medical times Branch daily. spironolact Yes [id number] 25mg Take 1 [facility] one 25 mg 8-07 tablet by ity o f tablet 00:00: mouth [place] (two) Medical times Branch daily. spironolact Yes [id number] 25mg Take 1 [facility] one 25 mg 8-07 tablet by ity o f tablet 00:00: mouth [place] (two) Medical times Branch daily. spironolact Yes [id number] 25mg Take 1 [facility] one 25 mg 8-07 tablet by ity o f tablet 00:00: mouth 2 [place] (two) Medical times Branch daily. spironolact 2019- Yes [id number] 25mg Take 1 [facility] one 25 mg 8-07 tablet by ity o f tablet 00:00: mouth 2 [place] (two) Medical times Branch daily. spironolact 2018- Yes [id number] 25mg Take 1 [facility] one 25 mg 8-07 tablet by ity o f tablet 00:00: mouth 2 [place] (two) Medical times Branch daily. spironolact 2018- Yes [id number] 25mg Take 1 [facility] one 25 mg 8-07 tablet by ity o f tablet 00:00: mouth (two) Medical times Branch daily. spironolact 2018-0 Yes [id number] 25mg Take 1 [facility] one 25 mg 8-07 tablet by ity o f tablet 00:00: mouth 2 (two) Medical times Branch daily. spironolact 2018- Yes [id number] 25mg Take 1 [facility] one 25 mg 8-07 tablet by ity o f tablet 00:00: mouth 2 (two) Medical times Branch daily. spironolact 2018- Yes [id number] 25mg Take 1 [facility] one 25 mg 8-07 tablet by ity o f tablet 00:00: mouth (two) Medical times Branch daily. spironolact Yes [id number] 25mg Take 1 [facility] one 25 mg 8-07 tablet by ity o f tablet 00:00: mouth (two) Medical times Branch daily. ALPRAZolam 2018- Yes [id number] 1mg Take 1 [facility] 1 mg tablet 7-22 tablet by ity of 00:00: mouth (two) Medical times Branch daily. Prn anxiety carvedilol 2018-0 Yes [id number] 3.125mg Take 1 [facility] 3.125 mg 7-22 tablet by ity of tablet 00:00: mouth (two) Medical times Branch daily with meals. foLIC acid 2018- Yes [id number] 1mg Take 1 [facility] 1 mg tablet 7-22 tablet by ity of 00:00: mouth daily. Medical Branch furosemide 2018-0 Yes [id number] 40mg Take 1 [facility] 40 mg 7-22 tablet by ity of tablet 00:00: mouth 00 daily. Medical Branch hydrOXYzine 2019-0 Yes [id number] 50mg Take 1 [facility] 50 mg 7-22 tablet by ity of tablet 00:00: mouth (three) Medical times Branch daily as needed for Itching. metFORMIN 2018- Yes [id number] 500mg Take 1 [facility] 500 mg 7-22 tablet by ity of tablet 00:00: mouth (two) Medical times Branch daily with meals. pantoprazol 2019- Yes [id number] 40mg Take 1 [facility] e 40 mg EC 7-22 tablet by ity of tablet 00:00: mouth [place] 00 daily. Medical Branch clobetasol Yes [id number] Apply to [facility] 0.05 % 7-22 area(s) 2 ity of cream 00:00: (two) [place] 00 times Medical daily. Branch triamcinolo Yes [id number] Apply to [facility] ne 7-22 affected ity of acetonide 00:00: area(s) 2 [place] 0.1 % cream 00 (two) Medical times Branch daily. ALPRAZolam 2018- Yes [id number] 1mg Take 1 [facility] 1 mg tablet 7-22 tablet by ity of 00:00: mouth 2 [place] 00 (two) Medical times Branch daily. Prn anxiety carvedilol 2018- Yes [id number] 3.125mg Take 1 [facility] 3.125 mg 7-22 tablet by ity of tablet 00:00: mouth 2 00 (two) Medical times Branch daily with meals. foLIC acid 2018- Yes [id number] 1mg Take 1 [facility] 1 mg tablet 7-22 tablet by ity of 00:00: mouth [place] 00 daily. Medical Branch furosemide 2018- Yes [id number] 40mg Take 1 [facility] 40 mg 7-22 tablet by ity of tablet 00:00: mouth [place] 00 daily. Medical Branch hydrOXYzine Yes [id number] 50mg Take 1 [facility] 50 mg 7-22 tablet by ity of tablet 00:00: mouth 3 [place] 00 (three) Medical times Branch daily as needed for Itching. metFORMIN Yes [id number] 500mg Take 1 [facility] 500 mg 7-22 tablet by ity of tablet 00:00: mouth 2 [place] 00 (two) Medical times Branch daily with meals. pantoprazol 2018- Yes [id number] 40mg Take 1 [facility] e 40 mg EC 7-22 tablet by ity of tablet 00:00: mouth [place] 00 daily. Medical Branch clobetasol Yes [id number] Apply to [facility] 0.05 % 7-22 area(s) 2 ity of cream 00:00: (two) [place] 00 times Medical daily. Branch triamcinolo Yes [id number] Apply to [facility] ne 7-22 affected ity of acetonide 00:00: area(s) 2 [place] 0.1 % cream 00 (two) Medical times Branch daily. ALPRAZolam Yes [id number] 1mg Take 1 [facility] 1 mg tablet 7-22 tablet by ity of 00:00: mouth 2 (two) Medical times Branch daily. Prn anxiety carvedilol 2018- Yes [id number] 3.125mg Take 1 [facility] 3.125 mg 7-22 tablet by ity of tablet 00:00: mouth 2 (two) Medical times Branch daily with meals. foLIC acid 2018- Yes [id number] 1mg Take 1 [facility] 1 mg tablet 7-22 tablet by ity of 00:00: mouth [place] 00 daily. Medical Branch furosemide 2018- Yes [id number] 40mg Take 1 [facility] 40 mg 7-22 tablet by ity of tablet 00:00: mouth 00 daily. Medical Branch hydrOXYzine Yes [id number] 50mg Take 1 [facility] 50 mg 7-22 tablet by ity of tablet 00:00: mouth 3 (three) Medical times Branch daily as needed for Itching. metFORMIN 2018- Yes [id number] 500mg Take 1 [facility] 500 mg 7-22 tablet by ity of tablet 00:00: mouth 2 (two) Medical times Branch daily with meals. pantoprazol Yes [id number] 40mg Take 1 [facility] e 40 mg EC 7-22 tablet by ity of tablet 00:00: mouth 00 daily. Medical Branch clobetasol Yes [id number] Apply to [facility] 0.05 % 7-22 area(s) 2 ity of cream 00:00: (two) 00 times Medical daily. Branch triamcinolo Yes [id number] Apply to [facility] ne 7-22 affected ity of acetonide 00:00: area(s) 2 [place] 0.1 % cream 00 (two) Medical times Branch daily. ALPRAZolam Yes [id number] 1mg Take 1 [facility] 1 mg tablet 7-22 tablet by ity of 00:00: mouth 2 (two) Medical times Branch daily. Prn anxiety carvedilol Yes [id number] 3.125mg Take 1 [facility] 3.125 mg 7-22 tablet by ity of tablet 00:00: mouth 2 [place] 00 (two) Medical times Branch daily with meals. foLIC acid 2018- Yes [id number] 1mg Take 1 [facility] 1 mg tablet 7-22 tablet by ity of 00:00: mouth [place] 00 daily. Medical Branch furosemide 2018- Yes [id number] 40mg Take 1 [facility] 40 mg 7-22 tablet by ity of tablet 00:00: mouth [place] 00 daily. Medical Branch hydrOXYzine 2018- Yes [id number] 50mg Take 1 [facility] 50 mg 7-22 tablet by ity of tablet 00:00: mouth 3 (three) Medical times Branch daily as needed for Itching. metFORMIN 2018- Yes [id number] 500mg Take 1 [facility] 500 mg 7-22 tablet by ity of tablet 00:00: mouth 2 (two) Medical times Branch daily with meals. pantoprazol 2018- Yes [id number] 40mg Take 1 [facility] e 40 mg EC 7-22 tablet by ity of tablet 00:00: mouth 00 daily. Medical Branch clobetasol Yes [id number] Apply to [facility] 0.05 % 7-22 area(s) 2 ity of cream 00:00: (two) [place] 00 times Medical daily. Branch triamcinolo Yes [id number] Apply to [facility] ne 7-22 affected ity of acetonide 00:00: area(s) 2 [place] 0.1 % cream 00 (two) Medical times Branch daily. ALPRAZolam Yes [id number] 1mg Take 1 [facility] 1 mg tablet 7-22 tablet by ity of 00:00: mouth 2 (two) Medical times Branch daily. Prn anxiety carvedilol 2018- Yes [id number] 3.125mg Take 1 [facility] 3.125 mg 7-22 tablet by ity of tablet 00:00: mouth 2 (two) Medical times Branch daily with meals. foLIC acid 2018- Yes [id number] 1mg Take 1 [facility] 1 mg tablet 7-22 tablet by ity of 00:00: mouth [place] 00 daily. Medical Branch hydrOXYzine Yes [id number] 50mg Take 1 [facility] 50 mg 7-22 tablet by ity of tablet 00:00: mouth 3 (three) Medical times Branch daily as needed for Itching. metFORMIN 2018- Yes [id number] 500mg Take 1 [facility] 500 mg 7-22 tablet by ity of tablet 00:00: mouth 2 (two) Medical times Branch daily with meals. pantoprazol Yes [id number] 40mg Take 1 [facility] e 40 mg EC 7-22 tablet by ity of tablet 00:00: mouth [place] 00 daily. Medical Branch clobetasol Yes [id number] Apply to [facility] 0.05 % 7-22 area(s) 2 ity of cream 00:00: (two) [place] 00 times Medical daily. Branch triamcinolo Yes [id number] Apply to [facility] ne 7-22 affected ity of acetonide 00:00: area(s) 2 [place] 0.1 % cream 00 (two) Medical times Branch daily. ALPRAZolam Yes [id number] 1mg Take 1 [facility] 1 mg tablet 7-22 tablet by ity of 00:00: mouth 2 (two) Medical times Branch daily. Prn anxiety carvedilol 2018- Yes [id number] 3.125mg Take 1 [facility] 3.125 mg 7-22 tablet by ity of tablet 00:00: mouth 2 (two) Medical times Branch daily with meals. foLIC acid 2018- Yes [id number] 1mg Take 1 [facility] 1 mg tablet 7-22 tablet by ity of 00:00: mouth 00 daily. Medical Branch hydrOXYzine Yes [id number] 50mg Take 1 [facility] 50 mg 7-22 tablet by ity of tablet 00:00: mouth 3 00 (three) Medical times Branch daily as needed for Itching. metFORMIN 2018- Yes [id number] 500mg Take 1 [facility] 500 mg 7-22 tablet by ity of tablet 00:00: mouth 2 00 (two) Medical times Branch daily with meals. pantoprazol Yes [id number] 40mg Take 1 [facility] e 40 mg EC 7-22 tablet by ity of tablet 00:00: mouth [place] 00 daily. Medical Branch clobetasol Yes [id number] Apply to [facility] 0.05 % 7-22 area(s) 2 ity of cream 00:00: (two) [place] 00 times Medical daily. Branch triamcinolo Yes [id number] Apply to [facility] ne 7-22 affected ity of acetonide 00:00: area(s) 2 [place] 0.1 % cream 00 (two) Medical times Branch daily. ALPRAZolam 2018- Yes [id number] 1mg Take 1 [facility] 1 mg tablet 7-22 tablet by ity of 00:00: mouth 2 [place] (two) Medical times Branch daily. Prn anxiety carvedilol 2018- Yes [id number] 3.125mg Take 1 [facility] 3.125 mg 7-22 tablet by ity of tablet 00:00: mouth 2 (two) Medical times Branch daily with meals. foLIC acid Yes [id number] 1mg Take 1 [facility] 1 mg tablet 7-22 tablet by ity of 00:00: mouth 00 daily. Medical Branch hydrOXYzine Yes [id number] 50mg Take 1 [facility] 50 mg 7-22 tablet by ity of tablet 00:00: mouth 3 (three) Medical times Branch daily as needed for Itching. metFORMIN 2018- Yes [id number] 500mg Take 1 [facility] 500 mg 7-22 tablet by ity of tablet 00:00: mouth 2 (two) Medical times Branch daily with meals. pantoprazol Yes [id number] 40mg Take 1 [facility] e 40 mg EC 7-22 tablet by ity of tablet 00:00: mouth 00 daily. Medical Branch clobetasol Yes [id number] Apply to [facility] 0.05 % 7-22 area(s) 2 ity of cream 00:00: (two) 00 times Medical daily. Branch triamcinolo Yes [id number] Apply to [facility] ne 7-22 affected ity of acetonide 00:00: area(s) 2 [place] 0.1 % cream 00 (two) Medical times Branch daily. ALPRAZolam Yes [id number] 1mg Take 1 [facility] 1 mg tablet 7-22 tablet by ity of 00:00: mouth 2 (two) Medical times Branch daily. Prn anxiety carvedilol 2018- Yes [id number] 3.125mg Take 1 [facility] 3.125 mg 7-22 tablet by ity of tablet 00:00: mouth 2 (two) Medical times Branch daily with meals. foLIC acid Yes [id number] 1mg Take 1 [facility] 1 mg tablet 7-22 tablet by ity of 00:00: mouth [place] 00 daily. Medical Branch hydrOXYzine 2018- Yes [id number] 50mg Take 1 [facility] 50 mg 7-22 tablet by ity of tablet 00:00: mouth 3 (three) Medical times Branch daily as needed for Itching. metFORMIN 2018- Yes [id number] 500mg Take 1 [facility] 500 mg 7-22 tablet by ity of tablet 00:00: mouth 2 (two) Medical times Branch daily with meals. pantoprazol 2018- Yes [id number] 40mg Take 1 [facility] e 40 mg EC 7-22 tablet by ity of tablet 00:00: mouth 00 daily. Medical Branch clobetasol Yes [id number] Apply to [facility] 0.05 % 7-22 area(s) 2 ity of cream 00:00: (two) [place] 00 times Medical daily. Branch triamcinolo Yes [id number] Apply to [facility] ne 7-22 affected ity of acetonide 00:00: area(s) 2 [place] 0.1 % cream 00 (two) Medical times Branch daily. ALPRAZolam 2018- Yes [id number] 1mg Take 1 [facility] 1 mg tablet 7-22 tablet by ity of 00:00: mouth 2 (two) Medical times Branch daily. Prn anxiety carvedilol 2018- Yes [id number] 3.125mg Take 1 [facility] 3.125 mg 7-22 tablet by ity of tablet 00:00: mouth 2 (two) Medical times Branch daily with meals. foLIC acid 2018- Yes [id number] 1mg Take 1 [facility] 1 mg tablet 7-22 tablet by ity of 00:00: mouth 00 daily. Medical Branch hydrOXYzine 2018- Yes [id number] 50mg Take 1 [facility] 50 mg 7-22 tablet by ity of tablet 00:00: mouth 3 (three) Medical times Branch daily as needed for Itching. metFORMIN 2018- Yes [id number] 500mg Take 1 [facility] 500 mg 7-22 tablet by ity of tablet 00:00: mouth 2 00 (two) Medical times Branch daily with meals. pantoprazol 2018- Yes [id number] 40mg Take 1 [facility] e 40 mg EC 7-22 tablet by ity of tablet 00:00: mouth [place] 00 daily. Medical Branch clobetasol Yes [id number] Apply to [facility] 0.05 % 7-22 area(s) 2 ity of cream 00:00: (two) [place] 00 times Medical daily. Branch triamcinolo Yes [id number] Apply to [facility] ne 7-22 affected ity of acetonide 00:00: area(s) 2 [place] 0.1 % cream 00 (two) Medical times Branch daily. ALPRAZolam Yes [id number] 1mg Take 1 [facility] 1 mg tablet 7-22 tablet by ity of 00:00: mouth 2 [place] 00 (two) Medical times Branch daily. Prn anxiety carvedilol 2018- Yes [id number] 3.125mg Take 1 [facility] 3.125 mg 7-22 tablet by ity of tablet 00:00: mouth 2 (two) Medical times Branch daily with meals. foLIC acid Yes [id number] 1mg Take 1 [facility] 1 mg tablet 7-22 tablet by ity of 00:00: mouth 00 daily. Medical Branch hydrOXYzine Yes [id number] 50mg Take 1 [facility] 50 mg 7-22 tablet by ity of tablet 00:00: mouth 3 00 (three) Medical times Branch daily as needed for Itching. metFORMIN Yes [id number] 500mg Take 1 [facility] 500 mg 7-22 tablet by ity of tablet 00:00: mouth 2 (two) Medical times Branch daily with meals. pantoprazol Yes [id number] 40mg Take 1 [facility] e 40 mg EC 7-22 tablet by ity of tablet 00:00: mouth [place] 00 daily. Medical Branch clobetasol Yes [id number] Apply to [facility] 0.05 % 7-22 area(s) 2 ity of cream 00:00: (two) [place] 00 times Medical daily. Branch triamcinolo Yes [id number] Apply to [facility] ne 7-22 affected ity of acetonide 00:00: area(s) 2 [place] 0.1 % cream 00 (two) Medical times Branch daily. ALPRAZolam Yes [id number] 1mg Take 1 [facility] 1 mg tablet 7-22 tablet by ity of 00:00: mouth 2 [place] 00 (two) Medical times Branch daily. Prn anxiety carvedilol 2018- Yes [id number] 3.125mg Take 1 [facility] 3.125 mg 7-22 tablet by ity of tablet 00:00: mouth 2 (two) Medical times Branch daily with meals. foLIC acid Yes [id number] 1mg Take 1 [facility] 1 mg tablet 7-22 tablet by ity of 00:00: mouth 00 daily. Medical Branch hydrOXYzine Yes [id number] 50mg Take 1 [facility] 50 mg 7-22 tablet by ity of tablet 00:00: mouth 3 (three) Medical times Branch daily as needed for Itching. metFORMIN 2018- Yes [id number] 500mg Take 1 [facility] 500 mg 7-22 tablet by ity of tablet 00:00: mouth 2 (two) Medical times Branch daily with meals. pantoprazol 2018- Yes [id number] 40mg Take 1 [facility] e 40 mg EC 7-22 tablet by ity of tablet 00:00: mouth daily. Medical Branch clobetasol Yes [id number] Apply to [facility] 0.05 % 7-22 area(s) 2 ity of cream 00:00: (two) times Medical daily. Branch triamcinolo Yes [id number] Apply to [facility] ne 7-22 affected ity of acetonide 00:00: area(s) 2 [place] 0.1 % cream 00 (two) Medical times Branch daily. ALPRAZolam Yes [id number] 1mg Take 1 [facility] 1 mg tablet 7-22 tablet by ity of 00:00: mouth (two) Medical times Branch daily. Prn anxiety carvedilol 2018- Yes [id number] 3.125mg Take 1 [facility] 3.125 mg 7-22 tablet by ity of tablet 00:00: mouth (two) Medical times Branch daily with meals. foLIC acid Yes [id number] 1mg Take 1 [facility] 1 mg tablet 7-22 tablet by ity of 00:00: mouth 00 daily. Medical Branch hydrOXYzine Yes [id number] 50mg Take 1 [facility] 50 mg 7-22 tablet by ity of tablet 00:00: mouth 3 (three) Medical times Branch daily as needed for Itching. metFORMIN 2018- Yes [id number] 500mg Take 1 [facility] 500 mg 7-22 tablet by ity of tablet 00:00: mouth 2 [place] 00 (two) Medical times Branch daily with meals. pantoprazol 2018- Yes [id number] 40mg Take 1 [facility] e 40 mg EC 7-22 tablet by ity of tablet 00:00: mouth [place] 00 daily. Medical Branch clobetasol 2018- Yes [id number] Apply to [facility] 0.05 % 7-22 area(s) 2 ity of cream 00:00: (two) [place] 00 times Medical daily. Branch triamcinolo Yes [id number] Apply to [facility] ne 7-22 affected ity of acetonide 00:00: area(s) 2 [place] 0.1 % cream 00 (two) Medical times Branch daily. ALPRAZolam Yes [id number] 1mg Take 1 [facility] 1 mg tablet 7-22 tablet by ity of 00:00: mouth 2 00 (two) Medical times Branch daily. Prn anxiety carvedilol 2018- Yes [id number] 3.125mg Take 1 [facility] 3.125 mg 7-22 tablet by ity of tablet 00:00: mouth 2 00 (two) Medical times Branch daily with meals. foLIC acid 2018-0 Yes [id number] 1mg Take 1 [facility] 1 mg tablet 7-22 tablet by ity of 00:00: mouth [place] 00 daily. Medical Branch furosemide 2018- Yes [id number] 40mg Take 1 [facility] 40 mg 7-22 tablet by ity of tablet 00:00: mouth [place] 00 daily. Medical Branch hydrOXYzine 2018-0 Yes [id number] 50mg Take 1 [facility] 50 mg 7-22 tablet by ity of tablet 00:00: mouth 3 [place] 00 (three) Medical times Branch daily as needed for Itching. metFORMIN 2018- Yes [id number] 500mg Take 1 [facility] 500 mg 7-22 tablet by ity of tablet 00:00: mouth 2 [place] 00 (two) Medical times Branch daily with meals. pantoprazol 2018- Yes [id number] 40mg Take 1 [facility] e 40 mg EC 7-22 tablet by ity of tablet 00:00: mouth [place] 00 daily. Medical Branch spironolact 2018- Yes [id number] 25mg Take 1 [facility] one 25 mg 7-22 tablet by ity o f tablet 00:00: mouth 2 [place] 00 (two) Medical times Branch daily. clobetasol Yes [id number] Apply to [facility] 0.05 % 7-22 area(s) 2 ity of cream 00:00: (two) [place] 00 times Medical daily. Branch triamcinolo Yes [id number] Apply to [facility] ne 7-22 affected ity of acetonide 00:00: area(s) 2 [place] 0.1 % cream 00 (two) Medical times Branch daily. furosemide 2019- No [id number] 40mg Take 1 [facility] 40 mg 7-22 08-26 tablet by ity of tablet 00:00: 00:00 mouth [place] 00 :00 daily. Medical Branch furosemide 2019- No [id number] 40mg Take 1 [facility] 40 mg 7-22 08- tablet by ity of tablet 00:00: 00:00 mouth [place] 00 :00 daily. [facility] Branch spironolact 2019- No [id number] 25mg Take 1 [facility] one 25 mg 7-22 08-07 tablet by ity of tablet 00:00: 00:00 mouth 2 [place] 00 :00 (two) Medical times Branch daily. Pitavastati Yes 2mg Take 2 mg U nivers n (LIVALO) 6-18 by mouth ity o f 2 mg Tab 16:18: daily. [address] Pitavastati Yes 2mg Take 2 mg U nivers n (LIVALO) 6-18 by mouth ity o f 2 mg Tab 16:18: daily. [address] Pitavastati Yes 2mg Take 2 mg U nivers n (LIVALO) 6-18 by mouth ity o f 2 mg Tab 16:18: daily. [address] Pitavastati Yes 2mg Take 2 mg U nivers n (LIVALO) 6-18 by mouth ity o f 2 mg Tab 16:18: daily. [address] Pitavastati Yes 2mg Take 2 mg U nivers n (LIVALO) 6-18 by mouth ity o f 2 mg Tab 16:18: daily. [address] Pitavastati 2019-0 Yes 2mg Take 2 mg U nivers n (LIVALO) 6-18 by mouth ity o f 2 mg Tab 16:18: daily. [address] Pitavastati 2019-0 Yes 2mg Take 2 mg U nivers n (LIVALO) 6-18 by mouth ity o f 2 mg Tab 16:18: daily. [address] Pitavastati 2019-0 Yes 2mg Take 2 mg U nivers n (LIVALO) 6-18 by mouth ity o f 2 mg Tab 16:18: daily. [address] Pitavastati 2019-0 Yes 2mg Take 2 mg U nivers n (LIVALO) 6-18 by mouth ity o f 2 mg Tab 16:18: daily. [address] Pitavastati 2019-0 Yes 2mg Take 2 mg U nivers n (LIVALO) 6-18 by mouth ity o f 2 mg Tab 16:18: daily. [address] Pitavastati 2019-0 Yes 2mg Take 2 mg U nivers n (LIVALO) 6-18 by mouth ity o f 2 mg Tab 16:18: daily. [address] Pitavastati 2019-0 Yes 2mg Take 2 mg U nivers n (LIVALO) 6-18 by mouth ity o f 2 mg Tab 16:18: daily. [address] Pitavastati 2019-0 Yes 2mg Take 2 mg U nivers n (LIVALO) 6-18 by mouth ity o f 2 mg Tab 16:18: daily. [address] traMADOL 2019-0 Yes [id number] 50mg Take 1 Un epifanio (ULTRAM) 50 6-18 tablet by ity of mg tablet 00:00: mouth [place] 00 every 6 Medical (six) Branch hours as needed for Pain (scale 4-6). traMADOL 2019-0 Yes [id number] 50mg Take 1 Un epifanio (ULTRAM) 50 6-18 tablet by ity of mg tablet 00:00: mouth [place] 00 every 6 Medical (six) Branch hours as needed for Pain (scale 4-6). traMADOL 2019-0 Yes [id number] 50mg Take 1 Un epifanio (ULTRAM) 50 6-18 tablet by ity of mg tablet 00:00: mouth [place] 00 every 6 Medical (six) Branch hours as needed for Pain (scale 4-6). traMADOL 2019-0 Yes [id number] 50mg Take 1 Un epifanio (ULTRAM) 50 6-18 tablet by ity of mg tablet 00:00: mouth [place] 00 every 6 Medical (six) Branch hours as needed for Pain (scale 4-6). traMADOL 2019-0 Yes [id number] 50mg Take 1 Un epifanio (ULTRAM) 50 6-18 tablet by ity of mg tablet 00:00: mouth [place] 00 every 6 Medical (six) Branch hours as needed for Pain (scale 4-6). traMADOL 2019-0 Yes [id number] 50mg Take 1 Un epifanio (ULTRAM) 50 6-18 tablet by ity of mg tablet 00:00: mouth [place] 00 every 6 Medical (six) Branch hours as needed for Pain (scale 4-6). traMADOL 2019-0 Yes [id number] 50mg Take 1 Un epifanio (ULTRAM) 50 6-18 tablet by ity of mg tablet 00:00: mouth [place] 00 every 6 Medical (six) Branch hours as needed for Pain (scale 4-6). traMADOL 2019-0 Yes [id number] 50mg Take 1 Un epifanio (ULTRAM) 50 6-18 tablet by ity of mg tablet 00:00: mouth [place] 00 every 6 Medical (six) Branch hours as needed for Pain (scale 4-6). traMADOL 2019-0 Yes [id number] 50mg Take 1 Un epifanio (ULTRAM) 50 6-18 tablet by ity of mg tablet 00:00: mouth [place] 00 every 6 Medical (six) Branch hours as needed for Pain (scale 4-6). traMADOL 2019-0 Yes [id number] 50mg Take 1 Un epifanio (ULTRAM) 50 6-18 tablet by ity of mg tablet 00:00: mouth [place] 00 every 6 Medical (six) Branch hours as needed for Pain (scale 4-6). traMADOL 2019-0 Yes [id number] 50mg Take 1 Un epifanio (ULTRAM) 50 6-18 tablet by ity of mg tablet 00:00: mouth [place] 00 every 6 Medical (six) Branch hours as needed for Pain (scale 4-6). traMADOL 2019-0 Yes [id number] 50mg Take 1 Un epifanio (ULTRAM) 50 6-18 tablet by ity of mg tablet 00:00: mouth [place] 00 every 6 Medical (six) Branch hours as needed for Pain (scale 4-6). traMADOL 2019-0 Yes [id number] 50mg Take 1 Un epifanio (ULTRAM) 50 6-18 tablet by ity of mg tablet 00:00: mouth [place] 00 every 6 Medical (six) Branch hours as needed for Pain (scale 4-6). traMADOL 2019-0 Yes [id number] 50mg Take 1 Un epifanio (ULTRAM) 50 6-18 tablet by ity of mg tablet 00:00: mouth [place] 00 every 6 Medical (six) Branch hours as needed for Pain (scale 4-6). traMADOL 2019-0 Yes [id number] 50mg Take 1 Un epifanio (ULTRAM) 50 6-18 tablet by ity of mg tablet 00:00: mouth [place] 00 every 6 Medical (six) Branch hours as needed for Pain (scale 4-6). traMADOL 2019-0 Yes [id number] 50mg Take 1 Un epifanio (ULTRAM) 50 6-18 tablet by ity of mg tablet 00:00: mouth [place] 00 every 6 Medical (six) Branch hours as needed for Pain (scale 4-6). traMADOL 2019-0 Yes [id number] 50mg Take 1 Un epifanio (ULTRAM) 50 6-18 tablet by ity of mg tablet 00:00: mouth [place] 00 every 6 Medical (six) Branch hours as needed for Pain (scale 4-6). traMADOL 2019-0 Yes [id number] 50mg Take 1 Un epifanio (ULTRAM) 50 6-18 tablet by ity of mg tablet 00:00: mouth [place] 00 every 6 Medical (six) Branch hours as needed for Pain (scale 4-6). traMADOL 2019-0 Yes [id number] 50mg Take 1 Un epifanio (ULTRAM) 50 6-18 tablet by ity of mg tablet 00:00: mouth [place] 00 every 6 Medical (six) Branch hours as needed for Pain (scale 4-6). traMADOL 2019-0 Yes [id number] 50mg Take 1 Un epifanio (ULTRAM) 50 6-18 tablet by ity of mg tablet 00:00: mouth [place] 00 every 6 Medical (six) Branch hours as needed for Pain (scale 4-6). traMADOL 2019-0 2020- No [id number] 50mg Take 1 U nivers (ULTRAM) 50 6-18 05-19 tablet by it y of mg tablet 00:00: 00:00 mouth [place] 00 :00 every 6 Medical (six) Branch hours as needed for Pain (scale 4-6). traMADOL 2020- No [id number] 50mg Take 1 U nivers (ULTRAM) 50 6-18 05-19 tablet by it y of mg tablet 00:00: 00:00 mouth [place] 00 :00 every 6 Medical (six) Branch hours as needed for Pain (scale 4-6). folic acid Yes 1mg QD Take [address] [facility] (FOLVITE) 1 6-13 by mouth [facility] - MG tablet 00:00: daily . Medic al 00 [place] lactulose Yes TK [address] [facility] (CHRONULAC) 5-04 PO TID [facility] - 10 gram/15 00:00: Medical mL solution 00 [place] blood sugar Yes [id number] Use BID, Univers diagnostic 4-23 DX E11.9 ity o f (ACCU-CHEK 00:00: (Brand [place] GUIDE) 00 upon Medical strip insurance Branch approval) Lancets Yes [id number] Use BID, U nivers Misc 4-23 DX E11.9 ity of 00:00: (Brand [place] 00 upon Medical insurance Branch approval) Blood-Gluco Yes [id number] Use BID, Univers se Meter 4-23 DX E11.9 ity of (ACCU-CHEK 00:00: (Brand [place] GUIDE 00 upon Medical GLUCOSE insurance Branch METER) Mis approval) ACCU-CHEK GUIDE blood sugar Yes [id number] Use BID, Univers diagnostic 4-23 DX E11.9 ity o f (ACCU-CHEK 00:00: (Brand [place] GUIDE) 00 upon Medical strip insurance Branch approval) Lancets Yes [id number] Use BID, U nivers Misc 4-23 DX E11.9 ity of 00:00: (Brand [place] 00 upon Medical insurance Branch approval) Blood-Gluco Yes [id number] Use BID, Univers se Meter 4-23 DX E11.9 ity of (ACCU-CHEK 00:00: (Brand [place] GUIDE 00 upon Medical GLUCOSE insurance Branch METER) Misc approval) ACCU-CHEK GUIDE blood sugar 2019- Yes [id number] Use BID, Univers diagnostic 4-23 DX E11.9 ity o f (ACCU-CHEK 00:00: (Brand [place] GUIDE) 00 upon Medical strip insurance Branch approval) Lancets 2019- Yes [id number] Use BID, U nivers Misc 4-23 DX E11.9 ity of 00:00: (Brand [place] 00 upon Medical insurance Branch approval) Blood-Gluco 2019- Yes [id number] Use BID, Univers se Meter 09-18 DX E11.9 ity of (ACCU-CHEK 00:00: (Brand [place] GUIDE 00 upon Medical GLUCOSE insurance Branch METER) Misc approval) ACCU-CHEK GUIDE blood sugar 2018- Yes [id number] Use BID, Univers diagnostic - DX E11.9 ity o f (ACCU-CHEK 00:00: (Brand [place] GUIDE) 00 upon Medical strip insurance Branch approval) Lancets 2019- Yes [id number] Use BID, U nivers Misc 09-18 DX E11.9 ity of 00:00: (Brand [place] 00 upon Medical insurance Branch approval) Blood-Gluco 2019- Yes [id number] Use BID, Univers se Meter 09-18 DX E11.9 ity of (ACCU-CHEK 00:00: (Brand [place] GUIDE 00 upon Medical GLUCOSE insurance Branch METER) Misc approval) ACCU-CHEK GUIDE blood sugar 2019-0 Yes [id number] Use BID, Univers diagnostic -23 DX E11.9 ity o f (ACCU-CHEK 00:00: (Brand [place] GUIDE) 00 upon Medical strip insurance Branch approval) Lancets 2019- Yes [id number] Use BID, U nivers Misc 23 DX E11.9 ity of 00:00: (Brand [place] 00 upon Medical insurance Branch approval) Blood-Gluco 2019- Yes [id number] Use BID, Univers se Meter 23 DX E11.9 ity of (ACCU-CHEK 00:00: (Brand [place] GUIDE 00 upon Medical GLUCOSE insurance Branch METER) Misc approval) ACCU-CHEK GUIDE blood sugar 2019-0 Yes [id number] Use BID, Univers diagnostic 4-23 DX E11.9 ity o f (ACCU-CHEK 00:00: (Brand [place] GUIDE) 00 upon Medical strip insurance Branch approval) Lancets 2019- Yes [id number] Use BID, U nivers Misc 4-23 DX E11.9 ity of 00:00: (Brand [place] 00 upon Medical insurance Branch approval) Blood-Gluco 2019- Yes [id number] Use BID, Univers se Meter 4-23 DX E11.9 ity of (ACCU-CHEK 00:00: (Brand [place] GUIDE 00 upon Medical GLUCOSE insurance Branch METER) Misc approval) ACCU-CHEK GUIDE blood sugar 2019- Yes [id number] Use BID, Univers diagnostic 4-23 DX E11.9 ity o f (ACCU-CHEK 00:00: (Brand [place] GUIDE) 00 upon Medical strip insurance Branch approval) Lancets 2019- Yes [id number] Use BID, U nivers Misc 4-23 DX E11.9 ity of 00:00: (Brand [place] 00 upon Medical insurance Branch approval) Blood-Gluco 2019- Yes [id number] Use BID, Univers se Meter 4-23 DX E11.9 ity of (ACCU-CHEK 00:00: (Brand [place] GUIDE 00 upon Medical GLUCOSE insurance Branch METER) Misc approval) ACCU-CHEK GUIDE blood sugar 2019- Yes [id number] Use BID, Univers diagnostic 4-23 DX E11.9 ity o f (ACCU-CHEK 00:00: (Brand [place] GUIDE) 00 upon Medical strip insurance Branch approval) Lancets 2019- Yes [id number] Use BID, U nivers Misc 4-23 DX E11.9 ity of 00:00: (Brand [place] 00 upon Medical insurance Branch approval) Blood-Gluco 2019- Yes [id number] Use BID, Univers se Meter 4-23 DX E11.9 ity of (ACCU-CHEK 00:00: (Brand [place] GUIDE 00 upon Medical GLUCOSE insurance Branch METER) Misc approval) ACCU-CHEK GUIDE blood sugar 2019-0 Yes [id number] Use BID, Univers diagnostic 4-23 DX E11.9 ity o f (ACCU-CHEK 00:00: (Brand [place] GUIDE) 00 upon Medical strip insurance Branch approval) Lancets 2019- Yes [id number] Use BID, U nivers Misc 4-23 DX E11.9 ity of 00:00: (Brand [place] 00 upon Medical insurance Branch approval) Blood-Gluco 2019- Yes [id number] Use BID, Univers se Meter 4-23 DX E11.9 ity of (ACCU-CHEK 00:00: (Brand [place] GUIDE 00 upon Medical GLUCOSE insurance Branch METER) Misc approval) ACCU-CHEK GUIDE blood sugar 2018- Yes [id number] Use BID, Univers diagnostic 4-23 DX E11.9 ity o f (ACCU-CHEK 00:00: (Brand [place] GUIDE) 00 upon Medical strip insurance Branch approval) Lancets 2019- Yes [id number] Use BID, U nivers Misc 4-23 DX E11.9 ity of 00:00: (Brand [place] 00 upon Medical insurance Branch approval) Blood-Gluco 2018- Yes [id number] Use BID, Univers se Meter 23 DX E11.9 ity of (ACCU-CHEK 00:00: (Brand [place] GUIDE 00 upon Medical GLUCOSE insurance Branch METER) Misc approval) ACCU-CHEK GUIDE blood sugar 2018- Yes [id number] Use BID, Univers diagnostic -23 DX E11.9 ity o f (ACCU-CHEK 00:00: (Brand [place] GUIDE) 00 upon Medical strip insurance Branch approval) Lancets 2019- Yes [id number] Use BID, U nivers Misc 09-18 DX E11.9 ity of 00:00: (Brand [place] 00 upon Medical insurance Branch approval) Blood-Gluco 2018- Yes [id number] Use BID, Univers se Meter -23 DX E11.9 ity of (ACCU-CHEK 00:00: (Brand [place] GUIDE 00 upon Medical GLUCOSE insurance Branch METER) Misc approval) ACCU-CHEK GUIDE Blood-Gluco 2018- Yes [id number] Use BID, Univers se Meter 4-23 DX E11.9 ity of (ACCU-CHEK 00:00: (Brand [place] GUIDE 00 upon Medical GLUCOSE insurance Branch METER) Misc approval) ACCU-CHEK GUIDE Blood-Gluco 2018- Yes [id number] Use BID, Univers se Meter 4-23 DX E11.9 ity of (ACCU-CHEK 00:00: (Brand [place] GUIDE 00 upon Medical GLUCOSE insurance Branch METER) Misc approval) ACCU-CHEK GUIDE Blood-Gluco 2019- Yes [id number] Use BID, Univers se Meter 4-23 DX E11.9 ity of (ACCU-CHEK 00:00: (Brand [place] GUIDE 00 upon Medical GLUCOSE insurance Branch METER) Misc approval) ACCU-CHEK GUIDE Blood-Gluco Yes [id number] Use BID, Univers se Meter 4-23 DX E11.9 ity of (ACCU-CHEK 00:00: (Brand [place] GUIDE 00 upon Medical GLUCOSE insurance Branch METER) Misc approval) ACCU-CHEK GUIDE Blood-Gluco Yes [id number] Use BID, Univers se Meter -23 DX E11.9 ity of (ACCU-CHEK 00:00: (Brand [place] GUIDE 00 upon Medical GLUCOSE insurance Branch METER) Misc approval) ACCU-CHEK GUIDE Blood-Gluco Yes [id number] Use BID, Univers se Meter -23 DX E11.9 ity of (ACCU-CHEK 00:00: (Brand [place] GUIDE 00 upon Medical GLUCOSE insurance Branch METER) Misc approval) ACCU-CHEK GUIDE Blood-Gluco Yes [id number] Use BID, Univers se Meter -23 DX E11.9 ity of (ACCU-CHEK 00:00: (Brand [place] GUIDE 00 upon Medical GLUCOSE insurance Branch METER) Misc approval) ACCU-CHEK GUIDE Blood-Gluco Yes [id number] Use BID, Univers se Meter -23 DX E11.9 ity of (ACCU-CHEK 00:00: (Brand [place] GUIDE 00 upon Medical GLUCOSE insurance Branch METER) Misc approval) ACCU-CHEK GUIDE blood sugar Yes [id number] Use BID, Univers diagnostic 4-23 DX E11.9 ity o f (ACCU-CHEK 00:00: (Brand [place] GUIDE) 00 upon Medical strip insurance Branch approval) Lancets 2019- Yes [id number] Use BID, U nivers Misc 4-23 DX E11.9 ity of 00:00: (Brand [place] 00 upon Medical insurance Branch approval) Blood-Gluco 2018- Yes [id number] Use BID, Univers se Meter 4-23 DX E11.9 ity of (ACCU-CHEK 00:00: (Brand [place] GUIDE 00 upon Medical GLUCOSE insurance Branch METER) Misc approval) ACCU-CHEK GUIDE Blood-Gluco 2018-0 2020- No [id number] Use BID, Univers se Meter 09-18- DX E11.9 ity of (ACCU-CHEK 00:00: 00:00 ([place] GU[place] 00 :00 upon Medical GLUCOSE insurance Branch METER) Misc approval) ACCU-CHEK GUIDE Blood-Gluco 2018-0 2020- No [id number] Use BID, Univers se Meter 09-18 DX E11.9 ity of (ACCU-CHEK 00:00: 00:00 ([place] GU[place] 00 :00 upon Medical GLUCOSE insurance Branch METER) Misc approval) ACCU-CHEK GUIDE lactulose 2019-0 Yes [id number] 15mL Take 15 mL [facility] 10 gram/15 4-08 by mouth 3 ity of mL solution 00:00: (three) [place] 00 times Medical daily. Branch lactulose 2019-0 Yes [id number] 15mL Take 15 mL [facility] 10 gram/15 4-08 by mouth 3 ity of mL solution 00:00: (three) [place] 00 times Medical daily. Branch lactulose 2019-0 Yes [id number] 15mL Take 15 mL [facility] 10 gram/15 4-08 by mouth 3 ity of mL solution 00:00: (three) [place] 00 times Medical daily. Branch lactulose 2019-0 Yes [id number] 15mL Take 15 mL [facility] 10 gram/15 4-08 by mouth 3 ity of mL solution 00:00: (three) [place] 00 times Medical daily. Branch lactulose 2019-0 Yes [id number] 15mL Take 15 mL [facility] 10 gram/15 4-08 by mouth 3 ity of mL solution 00:00: (three) [place] 00 times Medical daily. Branch lactulose 2019-0 Yes [id number] 15mL Take 15 mL [facility] 10 gram/15 4-08 by mouth 3 ity of mL solution 00:00: (three) [place] 00 times Medical daily. Branch lactulose 2019-0 Yes [id number] 15mL Take 15 mL [facility] 10 gram/15 4-08 by mouth 3 ity of mL solution 00:00: (three) [place] 00 times Medical daily. Branch lactulose 2019-0 Yes [id number] 15mL Take 15 mL [facility] 10 gram/15 4-08 by mouth 3 ity of mL solution 00:00: (three) [place] 00 times Medical daily. Branch lactulose 2019-0 Yes [id number] 15mL Take 15 mL [facility] 10 gram/15 4-08 by mouth 3 ity of mL solution 00:00: (three) [place] 00 times Medical daily. Branch lactulose 2019-0 Yes [id number] 15mL Take 15 mL [facility] 10 gram/15 4-08 by mouth 3 ity of mL solution 00:00: (three) [place] 00 times Medical daily. Branch lactulose 2019-0 Yes [id number] 15mL Take 15 mL [facility] 10 gram/15 4-08 by mouth 3 ity of mL solution 00:00: (three) [place] 00 times Medical daily. Branch lactulose 2019-0 Yes [id number] 15mL Take 15 mL [facility] 10 gram/15 4-08 by mouth 3 ity of mL solution 00:00: (three) [place] 00 times Medical daily. Branch lactulose 2019-0 Yes [id number] 15mL Take 15 mL [facility] 10 gram/15 4-08 by mouth 3 ity of mL solution 00:00: (three) [place] 00 times Medical daily. Branch furosemide 2019-0 Yes [id number] 40mg Take 1 [facility] 40 mg 2-12 tablet by ity of tablet 00:00: mouth [place] 00 every Medical morning Branch and evening. furosemide 2019-0 Yes [id number] 40mg Take 1 [facility] 40 mg 2-12 tablet by ity of tablet 00:00: mouth [place] 00 every Medical morning Branch and evening. furosemide 2019-0 Yes [id number] 40mg Take 1 [facility] 40 mg 2-12 tablet by ity of tablet 00:00: mouth [place] 00 every Medical morning Branch and evening. furosemide 2019-0 Yes [id number] 40mg Take 1 [facility] 40 mg 2-12 tablet by ity of tablet 00:00: mouth [place] 00 every Medical morning Branch and evening. furosemide 2019-0 Yes [id number] 40mg Take 1 [facility] 40 mg 2-12 tablet by ity of tablet 00:00: mouth [place] 00 every Medical morning Branch and evening. furosemide 2019-0 Yes [id number] 40mg Take 1 [facility] 40 mg 2-12 tablet by ity of tablet 00:00: mouth [place] 00 every Medical morning Branch and evening. furosemide 2019-0 Yes [id number] 40mg Take 1 [facility] 40 mg 2-12 tablet by ity of tablet 00:00: mouth [place] 00 every Medical morning Branch and evening. furosemide 2019-0 Yes [id number] 40mg Take 1 [facility] 40 mg 2-12 tablet by ity of tablet 00:00: mouth [place] 00 every Medical morning Branch and evening. furosemide 2019-0 Yes [id number] 40mg Take 1 [facility] 40 mg 2-12 tablet by ity of tablet 00:00: mouth [place] 00 every Medical morning Branch and evening. furosemide 2019-0 Yes [id number] 40mg Take 1 [facility] 40 mg 2-12 tablet by ity of tablet 00:00: mouth [place] 00 every Medical morning Branch and evening. furosemide 2019-0 Yes [id number] 40mg Take 1 [facility] 40 mg 2-12 tablet by ity of tablet 00:00: mouth [place] 00 every Medical morning Branch and evening. furosemide 2019-0 Yes [id number] 40mg Take 1 [facility] 40 mg 2-12 tablet by ity of tablet 00:00: mouth [place] 00 every Medical morning Branch and evening. furosemide 2018-0 Yes [id number] 40mg Take 1 [facility] 40 mg 2-12 tablet by ity of tablet 00:00: mouth [place] 00 every Medical morning Branch and evening. metFORMIN 2018-2020- No 500mg Take [address] [facility] (GLUCOPHAGE 2-12 04-06 mg by [facility] - ) 500 MG 00:00: 00:00 mouth 2 Medic al tablet 00 :00 (two) Center times daily with breakfast and dinner . carvedilol 2018- Yes 6.25mg Take 6.[address] [facility] (COREG) 2-06 mg by [facility] - 3.125 MG 00:00: mouth 2 Medica l tablet 00 (two) Center times daily with breakfast and dinner . lisinopril 2019-0 Yes 20mg QD Take [address] [facility] (PRINIVIL,Z 2-06 by mouth [facility] - ESTRIL) 20 00:00: daily . Medi jeevan MG tablet 00 Center lisinopril 2018-0 Yes [id number] 20mg Take 1 [facility] 20 mg 2-06 tablet by ity of tablet 00:00: mouth [place] 00 daily. Medical Branch lisinopril 2018-0 Yes [id number] 20mg Take 1 [facility] 20 mg 2-06 tablet by ity of tablet 00:00: mouth [place] 00 daily. Medical Branch lisinopril 2018-0 Yes [id number] 20mg Take 1 [facility] 20 mg 2-06 tablet by ity of tablet 00:00: mouth [place] 00 daily. Medical Branch lisinopril 2018-0 Yes [id number] 20mg Take 1 [facility] 20 mg 2-06 tablet by ity of tablet 00:00: mouth [place] 00 daily. [facility] Branch lisinopril 2018-0 Yes [id number] 20mg Take 1 [facility] 20 mg 2-06 tablet by ity of tablet 00:00: mouth [place] 00 daily. Medical Branch lisinopril 2018-0 Yes [id number] 20mg Take 1 [facility] 20 mg 2-06 tablet by ity of tablet 00:00: mouth [place] 00 daily. [facility] Branch lisinopril Yes [id number] 20mg Take 1 [facility] 20 mg 2-06 tablet by ity of tablet 00:00: mouth [place] 00 daily. Medical Branch lisinopril Yes [id number] 20mg Take 1 [facility] 20 mg 2-06 tablet by ity of tablet 00:00: mouth [place] 00 daily. Medical Branch lisinopril Yes [id number] 20mg Take 1 [facility] 20 mg 2-06 tablet by ity of tablet 00:00: mouth [place] 00 daily. Medical Branch lisinopril Yes [id number] 20mg Take 1 [facility] 20 mg 2-06 tablet by ity of tablet 00:00: mouth [place] 00 daily. [facility] Branch lisinopril 0 Yes [id number] 20mg Take 1 [facility] 20 mg 2-06 tablet by ity of tablet 00:00: mouth [place] 00 daily. Medical Branch lisinopril 0 Yes [id number] 20mg Take 1 Univers 20 mg 2-06 tablet by ity of tablet 00:00: mouth [place] 00 daily. [facility] lisinopril 0 Yes [id number] 20mg Take 1 Univers 20 mg 2-06 tablet by ity of tablet 00:00: mouth [place] 00 daily. Medical Branch pantoprazol Yes 40mg QD Take [address] [facility] 1-09 [facility] - (PROTONIX) 00:00: daily . Medi jeevan 40 MG 00 [place] tablet hydrOXYzine 2017-05 Yes 50mg Take [address] (ATARAX) 50 1-14 by mouth [facility] - MG tablet 00:00: as needed Med ical 00 . Center traMADol Yes Recurrent 50mg Take 1 [facility] (ULTRAM) 50 7-19 umbilical tablet by Health mg tablet 00:00: hernia mouth 00 every 6 hours as needed for Pain. No known No Univers medications [facility] No known No Univers medications [facility] Immunizations Ordered Filled Immunization Date Status Comments [facility] e Immunization Name Name SARS-COV-2 COVID-19 2021-02-05 Completed Unive rsity of PFIZER VACCINE 00:00:00 [facility] [place] [facility] SARS-COV-2 COVID-19 2021-02-05 Completed Unive rsity of PFIZER VACCINE 00:00:00 [facility] [place] [facility] SARS-COV-2 COVID-19 2021-02-05 Completed Unive rsity of PFIZER VACCINE 00:00:00 [facility] [place] [facility] SARS-COV-2 COVID-19 2021-02-05 Completed Unive rsity of PFIZER VACCINE 00:00:00 [facility] [place] [facility] SARS-COV-2 COVID-19 2021-02-05 Completed Unive rsity of PFIZER VACCINE 00:00:00 [facility] [place] [facility] SARS-COV-2 COVID-19 2021-02-05 Completed Unive rsity of PFIZER VACCINE 00:00:00 [facility] [place] [facility] Covid-19 Vaccine 2020-07-[address] [facility] [facility] - Mrna (Pf) 00:00:00 [facility] (Pfizer/biontech) Covid-19 Vaccine 2020-06-[address] [facility] - Mrna (Pf) 00:00:00 [facility] (Pfizer/biontech) Influenza 2020-06-[address] [facility] - Antibiotic Free PF 00:00:00 [facility] IM ([id number]) Pneumococcal 2018-10-[address] [facility] - Conjugate (Prevnar) 00:00:00 [facility] 13-Valent Influenza Four-QIV 2018-04-[address] [facility] - PF 3+YR IM 00:00:00 [facility] Influenza Virus 2018-04-11 Completed Universit y of Vaccine Quad IM 3+ 00:00:00 [facility] Influenza Virus 2018-04-11 Completed Universit y of Vaccine Quad IM 3+ 00:00:00 [facility] Influenza Virus 2018-04-11 Completed Universit y of Vaccine Quad IM 3+ 00:00:00 [facility] Influenza Virus 2018-04-11 Completed Universit y of Vaccine Quad IM 3+ 00:00:00 [facility] Influenza Virus 2018-04-11 Completed Universit y of Vaccine Quad IM 3+ 00:00:00 [facility] Influenza Virus 2018-04-11 Completed Universit y of Vaccine Quad IM 3+ 00:00:00 [facility] Influenza Virus 2018-04-11 Completed Universit y of Vaccine Quad IM 3+ 00:00:00 [facility] Influenza Virus 2018-04-11 Completed Universit y of Vaccine Quad IM 3+ 00:00:00 [facility] Influenza Virus 2018-04-11 Completed Universit y of Vaccine Quad IM 3+ 00:00:00 [facility] Influenza Virus 2018-04-11 Completed Universit y of Vaccine Quad IM 3+ 00:00:00 [facility] Influenza Virus 2018-04-11 Completed Universit y of Vaccine Quad IM 3+ 00:00:00 [facility] Influenza Virus 2018-04-11 Completed Universit y of Vaccine Quad IM 3+ 00:00:00 [facility] Influenza Virus 2018-04-11 Completed Universit y of Vaccine Quad IM 3+ 00:00:00 [facility] Influenza Virus 2018-04-11 Completed Universit y of Vaccine Quad IM 3+ 00:00:00 [facility] Influenza Virus 2018-04-11 Completed Universit y of Vaccine Quad IM 3+ 00:00:00 [facility] Influenza Virus 2018-04-11 Completed Universit y of Vaccine Quad IM 3+ 00:00:00 [facility] Influenza Virus 2018-04-11 Completed Universit y of Vaccine Quad IM 3+ 00:00:00 [facility] Influenza Virus 2018-04-11 Completed Universit y of Vaccine Quad IM 3+ 00:00:00 [facility] Influenza Virus 2018-04-11 Completed Universit y of Vaccine Quad IM 3+ 00:00:00 [facility] Influenza Virus 2018-04-11 Completed Universit y of Vaccine Quad IM 3+ 00:00:00 [facility] Influenza Virus 2018-04-11 Completed Universit y of Vaccine Quad IM 3+ 00:00:00 [facility] Influenza Virus 2018-04-11 Completed Universit y of Vaccine Quad IM 3+ 00:00:00 [facility] Influenza Virus 2018-04-11 Completed Universit y of Vaccine Quad IM 3+ 00:00:00 [facility] Influenza Virus 2018-04-11 Completed Universit y of Vaccine Quad IM 3+ 00:00:00 [facility] Influenza Virus 2018-04-11 Completed Universit y of Vaccine Quad IM 3+ 00:00:00 [facility] Influenza Virus 2018-04-11 Completed Universit y of Vaccine Quad IM 3+ 00:00:00 [facility] Influenza Virus 2018-04-11 Completed Universit y of Vaccine Quad IM 3+ 00:00:00 [facility] Influenza Virus 2018-04-11 Completed Universit y of Vaccine Quad IM 3+ 00:00:00 [facility] Influenza Virus 2018-04-11 Completed Universit y of Vaccine Quad IM 3+ 00:00:00 [facility] Influenza Virus 2018-04-11 Completed Universit y of Vaccine Quad IM 3+ 00:00:00 [facility] Td 7+ years, 2016-09-[address] [facility] - (TDVAX) 2 Lf tetaus 00:00:00 [facility] Center toxoid preservative free Td 2016-09-18 Completed University of 00:00:00 [facility] Td 2016-09-18 Completed University of 00:00:00 [facility] Td 2016-09-18 Completed University of 00:00:00 [facility] Td 2016-09-18 Completed University of 00:00:00 [facility] Td 2016-09-18 Completed University of 00:00:00 [facility] Td 2016-09-18 Completed University of 00:00:00 [facility] Td 2016-09-18 Completed University of 00:00:00 [facility] Td 2016-09-18 Completed University of 00:00:00 [facility] Td 2016-09-18 Completed University of 00:00:00 [facility] Td 2016-09-18 Completed University of 00:00:00 [facility] Td 2016-09-18 Completed University of 00:00:00 [facility] Td 2016-09-18 Completed University of 00:00:00 [facility] Td 2016-09-18 Completed University of 00:00:00 [facility] Td 2016-09-18 Completed University of 00:00:00 [facility] Td 2016-09-18 Completed University of 00:00:00 [facility] Td 2016-09-18 Completed University of 00:00:00 [facility] Td 2016-09-18 Completed University of 00:00:00 [facility] Td 2016-09-18 Completed University of 00:00:00 [facility] Td 2016-09-18 Completed University of 00:00:00 [facility] Td 2016-09-18 Completed University of 00:00:00 [facility] Td 2016-09-18 Completed University of 00:00:00 [facility] Td 2016-09-18 Completed University of 00:00:00 [facility] Td 2016-09-18 Completed University of 00:00:00 [facility] Td 2016-09-18 Completed University of 00:00:00 [facility] Td 2016-09-18 Completed University of 00:00:00 [facility] Td 2016-09-18 Completed University of 00:00:00 [facility] Td 2016-09-18 Completed University of 00:00:00 [facility] Td 2016-09-18 Completed University of 00:00:00 [facility] Td 2016-09-18 Completed University of 00:00:00 [facility] Td 2016-09-18 Completed University of 00:00:00 [facility] Td 2016-09-18 Completed University of 00:00:00 [facility] Td 2016-09-18 Completed University of 00:00:00 [facility] Vital Signs Vital Name Observation Time Observation Value Comments Source HEIGHT 2019-12-24 167.6 cm 00:00:00 WEIGHT 2019-12-24 103 kg 00:00:00 HEIGHT 2021-07-28 167.6 cm 09:12:00 WEIGHT 2021-07-28 104.237 kg 09:12:00 Systolic blood 2021-04-01 119 mm[Hg] University of pressure 20:00:00 [facility] Diastolic blood 2021-04-01 65 mm[Hg] University o f pressure 20:00:00 [facility] Heart rate 2021-04-01 57 /min University of 20:00:00 [facility] Respiratory rate 2021-04-01 16 /min University of 20:00:00 [facility] Oxygen saturation 2021-04-01 100 /min Simultaneous University of in Arterial blood 20:00:00 filing. User may [place] [facility] by Pulse oximetry not have seen Branch previous data. Body temperature 2021-04-01 36.22 Corrina University 18:07:00 [facility] Body height 2021-04-01 166 cm University 18:07:00 [facility] Body weight 2021-04-01 104.327 kg University 18:07:00 [facility] BMI 2021-04-01 37.86 kg/m2 University 18:07:00 [facility] HEIGHT 2021-03-12 167.6 cm 07:20:00 WEIGHT 2021-03-12 [...] 13:01:00 Systolic blood 2020-08-19 132 mm[Hg] University [facility] 14:00:00 [facility] Diastolic blood 2020-08-19 77 mm[Hg] University o f pressure 14:00:00 [facility] Heart rate 2020-08-19 71 /min University of 14:00:00 [facility] Respiratory rate 2020-08-19 18 /min University of 14:00:00 [facility] Oxygen saturation 2020-08-19 99 /min University of in Arterial blood 14:00:00 [place] [facility] by Pulse oximetry Branch Body temperature 2020-08-19 36.94 Corrina University of 12:32:00 [facility] Body weight 2020-08-19 106.142 kg University of 12:32:00 [facility] BMI 2020-08-19 37.77 kg/m2 University of 12:32:00 [facility] Systolic blood 2020-08-19 132 mm[Hg] University of pressure 14:00:00 [facility] Diastolic blood 2020-08-19 77 mm[Hg] University o f pressure 14:00:00 [facility] Heart rate 2020-08-19 71 /min University of 14:00:00 [facility] Respiratory rate 2020-08-19 18 /min University of 14:00:00 [facility] Oxygen saturation 2020-08-19 99 /min University of in Arterial blood 14:00:00 [place] [facility] by Pulse oximetry Branch Body temperature 2020-08-19 36.94 Corrina University of 12:32:00 [facility] Body weight 2020-08-19 106.142 kg University of 12:32:00 [facility] BMI 2020-08-19 37.77 kg/m2 University of 12:32:00 [facility] Systolic blood 2020-06-26 120 mm[Hg] University of pressure 03:00:00 [facility] Diastolic blood 2020-06-26 103 mm[Hg] University o f pressure 03:00:00 [facility] Heart rate 2020-06-26 83 /min University of 03:00:00 [facility] Respiratory rate 2020-06-26 20 /min University of 03:00:00 [facility] Oxygen saturation 2020-06-26 99 /min University of in Arterial blood 03:00:00 [place] [facility] by Pulse oximetry Branch Body temperature 2020-06-25 36.44 Corrina University of 23:03:00 [facility] Body height 2020-06-25 167.6 cm University of 23:03:00 [facility] Body weight 2020-06-25 105.235 kg University of 23:03:00 [facility] BMI 2020-06-25 37.45 kg/m2 University of 23:03:00 [facility] Systolic blood 2020-06-26 120 mm[Hg] University of pressure 03:00:00 [facility] Diastolic blood 2020-06-26 103 mm[Hg] University o f pressure 03:00:00 [facility] Heart rate 2020-06-26 83 /min University of 03:00:00 [facility] Respiratory rate 2020-06-26 20 /min University of 03:00:00 [facility] Oxygen saturation 2020-06-26 99 /min [facility] Arterial blood 03:00:00 [facility] by Pulse oximetry [place] Body temperature 2020-06-25 36.44 Corrina [facility] 23:03:00 [facility] Body height 2020-06-25 167.6 cm [place] of 23:03:00 [facility] Body weight 2020-06-25 105.235 kg University of 23:03:00 [facility] BMI 2020-06-25 37.45 kg/m2 University of 23:03:00 [facility] HEIGHT 2020-03-13 167.6 cm 10:38:00 WEIGHT 2020-03-13 108.41 kg 10:38:00 HEIGHT 2020-03-13 167.6 cm 10:38:00 WEIGHT 2020-03-13 108.41 kg 10:38:00 HEIGHT 2019-12-24 167.6 cm 00:00:00 WEIGHT 2019-12-24 103 kg 00:00:00 Systolic blood 2019-01-21 131 mm[Hg] University of pressure 21:03:00 [facility] Diastolic blood 2019-01-21 79 mm[Hg] University o f pressure 21:03:00 [facility] Heart rate 2019-01-21 73 /min [place] of 21:03:00 [facility] Body temperature 2019-01-21 37.06 Corrina [place] of 21:03:00 [facility] Respiratory rate 2019-01-21 18 /min University of 21:03:00 [facility] Body weight 2019-01-21 103.103 kg [place] of 21:03:00 [facility] BMI 2019-01-21 36.69 kg/m2 University of 21:03:00 [facility] Oxygen saturation 2019-01-21 98 /min [place] of in Arterial blood 21:03:00 [facility] by Pulse oximetry Branch Systolic blood 2019-01-21 131 mm[Hg] University of pressure 21:03:00 [facility] Diastolic blood 2019-01-21 79 mm[Hg] University o f pressure 21:03:00 [facility] Heart rate 2019-01-21 73 /min [facility] 21:03:00 [facility] Body temperature 2019-01-21 37.06 Corrina [facility] 21:03:00 [facility] Respiratory rate 2019-01-21 18 /min University 21:03:00 [facility] Body weight 2019-01-21 103.103 kg [facility] 21:03:00 [facility] BMI 2019-01-21 36.69 kg/m2 [facility] 21:03:00 [facility] Oxygen saturation 2019-01-21 98 /min [facility] in Arterial blood 21:03:00 [facility] by Pulse oximetry Branch Systolic blood 2021-03-12 107 mm[Hg] [facility] - pressure 14:30:00 [facility] Diastolic blood 2021-03-12 58 mm[Hg] [facility] - pressure 14:30:00 [facility] Heart rate 2021-03-12 61 /min [facility] - 14:30:00 [facility] Respiratory rate 2021-03-12 18 /min [facility] - 13:30:00 [facility] Oxygen saturation 2021-03-12 94 /min [facility] Ismael es - in Arterial blood 13:30:00 Medical nter by Pulse oximetry Body temperature 2021-03-[address] [facility] - 12:02:00 [facility] Body height 2021-03-[address] [facility] - 07:20:00 [facility] Body weight 2021-03-[address] [facility] - 07:20:00 [facility] BMI 2021-03-12 36.32 kg/m2 [facility] - 07:20:00 [facility] Procedures Procedure Date / Time Performing Clinician Source Performed NM BONE SCAN WHOLE BODY 2021-04-29 13:03:00 Veena Washington [facility] MR ABDOMEN WITH & WITHOUT 2021-04-29 11:48:00 Veena Washington [facility] IV CONTRAST [facility] CT CHEST WITHOUT IV 2021-04-29 10:31:00 eVena Washington [facility] ALPHA FETOPROTEIN (AFP), 2021-04-29 09:09:00 Veena Washington [facility] TUMOR MARKER [facility] BASIC METABOLIC PANEL (7) 2021-04-29 09:09:00 Veena Washington [facility] CBC W/PLT COUNT & AUTO 2021-04-29 09:09:00 Veena Washington [facility] HEPATIC FUNCTION PANEL 2021-04-29 09:09:00 Veena Washington [facility] PROTHROMBIN TIME/INR 2021-04-29 09:09:00 Veena Washington [facility] CBC W/PLT COUNT & AUTO 2021-04-29 09:09:00 Veena Washington [facility] TROPONIN I 2021-04-01 19:14:00 Singer Chandrakant [facility] COMP. METABOLIC PANEL 2021-04-01 19:14:00 Chandrakant [facility]str[facility] ([id number]) [facility] AMMONIA, PLASMA 2021-04-01 19:12:00 Singer [facility] CBC WITH DIFF 2021-04-01 19:12:00 Singer Chandrakant [facility] XR CHEST 1 VW 2021-04-01 18:51:09 Singer [facility] URINALYSIS 2021-04-01 18:40:00 Singer [facility] PROTHROMBIN TIME / INR 2021-04-01 18:30:00 Chandrakant [facility] CONSENT/REFUSAL FOR 2021-04-01 17:58:35 Doctor Unasssuly [facility] DIAGNOSIS AND TREATMENT [facility] IR EMBOLIZATION ARTERIAL 2021-03-12 12:05:00 Veena Washington [facility] BASIC METABOLIC PANEL (7) 2021-03-12 07:01:00 Anne-Marie More I [facility] HEPATIC FUNCTION PANEL 2021-03-12 07:01:00 Anne-Marie More [facility] CBC W/PLT COUNT & AUTO 2021-03-12 07:01:00 Anne-Marie More [facility] PROTHROMBIN TIME/INR 2021-03-12 07:01:00 Anne-Marie More [facility] CBC W/PLT COUNT & AUTO 2021-03-12 07:01:00 Anne-Marie More [facility] CBC W/PLT COUNT & AUTO 2021-02-23 10:05[facility] PROTHROMBIN TIME/INR 2021-02-23 10:05:[address] [facility] APTT 2021-02-23 10:05:00 [facility] BASIC METABOLIC PANEL (7) 2021-02-23 10:05:[address] [facility] HEPATIC FUNCTION PANEL 2021-02-23 10:05:[address] [facility] CBC W/PLT COUNT & AUTO 2021-02-23 10:05:00 [facility] [place] SARS-COV-2 COVID-19 2021-02-05 15:47:55 Doctor Unassigned, [facility] VACCINE,0.3ML,IM (PFIZER) [facility] MR ABDOMEN WITH & WITHOUT 2021-01-21 12:00:00 Veena Washington [facility] IV CONTRAST [facility] CT CHEST WITHOUT IV 2021-01-21 10:45:00 Veena Washington [facility] CONTRAST [facility] ALPHA FETOPROTEIN (AFP), 2021-01-21 10:02:00 Veena Washington [facility] TUMOR MARKER [facility] BASIC METABOLIC PANEL (7) 2021-01-21 10:02:00 Veena Washington [facility] CBC W/PLT COUNT & AUTO 2021-01-21 10:02:00 Veena Washington [facility] HEPATIC FUNCTION PANEL 2021-01-21 10:02:00 Veena Washington [facility] PROTHROMBIN TIME/INR 2021-01-21 10:02:00 Veena Washington [facility] HEPATITIS C PCR, 2021-01-21 10:02:00 Veena Washington [facility] CBC W/PLT COUNT & AUTO 2021-01-21 10:02:00 Veena Washington [facility] IR EMBOLIZATION ARTERIAL 2020-11-26 12:27:00 Veena Washington [facility] BASIC METABOLIC PANEL (7) 2020-11-26 08:28:00 Anne-Marie More [facility] HEPATIC FUNCTION PANEL 2020-11-26 08:28:00 [facility] CBC W/PLT COUNT & AUTO 2020-11-26 08:28:00 Derik [facility] PROTHROMBIN TIME/INR 2020-11-26 08:28:00 Derik [facility] APTT 2020-11-26 08:28:00 Derik [facility] CBC W/PLT COUNT & AUTO 2020-11-26 08:28:00 [facility] BASIC METABOLIC PANEL (7) 2020-10-28 10:55:00 Veena Washington [facility] HEPATIC FUNCTION PANEL 2020-10-28 10:55:00 Veena Washington [facility] CBC W/PLT COUNT & AUTO 2020-10-28 10:55:00 Veena Washington [facility] PROTHROMBIN TIME/INR 2020-10-28 10:55:00 Veena Washington [facility] HEPATITIS C PCR, 2020-10-28 10:55:00 Veena Washington [facility] CBC W/PLT COUNT & AUTO 2020-10-28 10:55:00 Veena Washington [facility] NM BONE SCAN WHOLE BODY 2020-10-08 14:02:00 Veena Washington [facility] ALPHA FETOPROTEIN (AFP), 2020-10-08 10:54:00 Veena Washington [facility] TUMOR MARKER [facility] BASIC METABOLIC PANEL (7) 2020-10-08 10:54:00 Veena Washington [facility] CBC W/PLT COUNT & AUTO 2020-10-08 10:54:00 Veena Washington [facility] HEPATIC FUNCTION PANEL 2020-10-08 10:54:00 Padmini Veenadheeraj Alexandre [facility] PROTHROMBIN TIME/INR 2020-10-08 10:54:00 Veena Washington [facility] CBC W/PLT COUNT & AUTO 2020-10-08 10:54:00 Veena Washington [facility] CT CHEST WITHOUT IV 2020-10-08 09:45:00 Veena Washington [facility] MR ABDOMEN WITH & WITHOUT 2020-09-01 14:15:00 Jose Francisco Laguna [facility] CONTRAST [facility] BASIC METABOLIC PANEL (7) 2020-09-01 13:15:00 Nickie Yeh [facility] HEPATIC FUNCTION PANEL 2020-09-01 13:15:00 Nickie Yeh [facility] CBC W/PLT COUNT & AUTO 2020-09-01 13:15:00 Nickie Yeh [facility] PROTHROMBIN TIME/INR 2020-09-01 13:15:00 Nickie Yeh [facility] ALPHA FETOPROTEIN (AFP), 2020-09-01 13:15:00 Nickie Yeh [facility] - TUMOR MARKER [facility] CBC W/PLT COUNT & AUTO 2020-09-01 13:15:00 Nickie Yeh [facility] DIFFERENTIAL [facility] XR CHEST 1 VW 2020-08-19 13:29:53 Wendy Bull [facility] HB ECG ROUTINE & RHYTHM 2020-08-19 13:05:46 [facility] 2020-08-19 13:01:00 Wendy Bull [facility] TROPONIN I 2020-08-19 13:01:00 Wendy Bull [facility] HEPATIC FUNCTION PANEL 2020-08-19 13:01:00 Wendy Bull [facility] ([id number]) (ALB,T.PRO,BILI [facility] T,BU/BC,ALT,AST,ALK PHOS) BASIC METABOLIC PANEL 2020-08-19 13:01:00 Wendy Bull [facility] (NA, K, CL, CO2, GLUCOSE, Medica l Branch BUN, CREATININE, CA) CBC WITH DIFF 2020-08-19 13:01:00 Wendy Bull [facility] N-TERMINAL PRO-BNP 2020-08-19 13:01:00 Wendy Bull [facility] COVID-19 (ID NOW RAPID 2020-08-19 13:01:00 Wendy Bull [facility] TESTING) [facility] CONSENT/REFUSAL FOR 2020-08-19 12:21:55 Doctor Unassigned, [facility] DIAGNOSIS AND TREATMENT [facility] AMMONIA, PLASMA 2020-06-26 01:01:00 Carolina San [facility] PROTHROMBIN TIME / INR 2020-06-26 01:01:00 Carolina San [facility] XR CHEST 1 VW 2020-06-25 23:46:19 Carolina San [facility] LIPASE 2020-06-25 23:43:00 Carolina San [facility] MAGNESIUM 2020-06-25 23:43:00 Carolina San [facility] TROPONIN I 2020-06-25 23:43:00 Carolina San [facility] HEPATIC FUNCTION PANEL 2020-06-25 23:43:00 Carolina San [facility] ([id number]) (ALB,T.PRO,BILI Medical Branch T,BU/BC,ALT,AST,ALK PHOS) BASIC METABOLIC PANEL 2020-06-25 23:43:00 Carolina San [facility] (NA, K, CL, CO2, GLUCOSE, Medica l Branch BUN, CREATININE, CA) CBC WITH DIFF 2020-06-25 23:43:00 Carolina San [facility] URINALYSIS 2020-06-25 23:43:00 Carolina San [facility] N-TERMINAL PRO-BNP 2020-06-25 23:43:00 Carolina San [facility] COVID-19 (ID NOW RAPID 2020-06-25 23:43:00 Carolina San [facility] TESTING) [facility] NOTICE OF PRIVACY 2020-06-25 22:41:45 Doctor Arboleda [facility] PRACTICES [facility] CONSENT/REFUSAL FOR 2020-06-25 22:41:29 Doctor Arboleda [facility] DIAGNOSIS AND TREATMENT [facility] HOME HEALTH - OTHER 2019-02-08 05:01:00 Doctor Arboleda [facility] HEALTH - OTHER 2019-01-31 05:01:00 Doctor Arboleda [facility] POCT HEMOGLOBIN A1C TEST 2019-01-21 21:30:00 Brenda Rod [facility] DME/SUPPLY JUSTIFICATION 2019-01-17 05:01:00 Doctor Arboleda [facility] HEALTH - OTHER 2019-01-07 05:01:00 Doctor Arboleda [facility] HEALTH - OTHER 2019-01-02 05:01:00 Trung Conte [facility] HEALTH - OTHER 2018-12-28 05:01:00 Trung Conte [facility] INSURANCE CORRESPONDENCE 2018-12-17 05:01:00 Doctor Arboleda [facility] PATIENT QUESTIONNAIRE 2016-10-19 05:01:00 [facility] 2016-10-13 05:01:00 Trung Conte [facility] Plan of Care Planned Activity Planned Date Details Comments Source Future Scheduled 2028-06-[address] [facility] - Test 00:00:00 malignant neoplasm of [facility] colon (procedure) [code = 954240756] Future Scheduled 2026-09-18 DTAP/TDAP/TD VACCINES [facility] Test 00:00:00 (2 - Td or Tdap) [code Medic or Center = DTAP/TDAP/TD VACCINES (2 - Td or Tdap)] Future Scheduled 2021-12-[address] [facility] - Test 00:00:00 (procedure) [code = [facility] 87975119] Future Scheduled 2021-05-[address] [facility] - Test 00:00:00 (12+) [code = [facility] DEPRESSION SCREENING (12+)] Future Scheduled 2021-02-26 [...] 2)] Future Scheduled 2006 Screening for Dewey Tammy lt Test 00:00:00 malignant neoplasm of colon (procedure) [code = 246687609] Future Scheduled 1961 COVID-19 Vaccine (1) [facility] Test 00:00:00 [code = COVID-19 Vaccine (1)] Encounters Start End Encounter Admission Attending Care Care Encounter Source Date/Time Date/Time Type Type Clinicians Facility Department ID 2021-03-28 Emergency [facility] [id number] Univers 08:04[facility] 2021-03-27 Emergency [facility] [id number] Univers 20:25:53 [facility] 2020-09-24 Inpatient [place], HCAPM ENDO [id number] [facility] 08:30:00 Anil [id number] [facility] 2019-12-24 In[facility] [id number] SLE 16:51:00 [facility] 2021-09-08 2021-09-08 Outpatient [facility] [id number] SLE 00:00:00 00:00:00 2021-08-26 2021-08-26 Outpatient [facility] [id number] SLEH 00:00:00 00:00:00 2021-08-26 2021-08-26 Outpatient [place] [facility] [id number] SLE 00:00:00 00:00:00 [facility] 2021-08-26 2021-08-26 Outpatient [place] [facility] [id number] SLE 00:00:00 00:00:00 [facility] 2021-08-26 2021-08-26 Outpatient [facility] [id number] SLE 00:00:00 00:00:00 2021-07-28 2021-07-28 Outpatient [facility] [place] [facility] [id number] SLEH 09:06:24 09:58:24 [facility] 2021-07-14 2021-07-14 Outpatient EL SLEH SLEH [id number] SLEH 00:00:00 00:00:00 2021-07-07 2021-07-07 Outpatient EL SLEH SLEH [id number] SLEH 00:00:00 00:00:00 2021-06-28 2021-06-28 [facility] [id number] 00:[facility]:00 00:00:00 ion [facility] 2021-06-27 2021-06-[address] [facility] [id number] [facility] St 00:00:00 00:00:00 [facility] 2021-05-24 2021-05-24 Tamiko Shabazz [facility] 1.2.840.114 [id number] Univers 00:00:00 00:00:00 Pearl VENEGAS [id number] i david [facility] 4.2.7.2.686 Anyi REZA [phone] Mt dical [address] 2021-05-14 2021-05-14 Documentat [facility] [id number] 00:00:00 00:00:00 devon [facility] 2021-05-13 2021-05-13 Abstract [facility] [id number] [facility] St 00:00:00 00:00:00 [facility] 2021-05-12 2021-05-12 Outpatient EL SLE SLEH [id number] SLEH 00:00:00 00:00:00 2021-05-10 2021-05-10 Telephone [facility] [id number] 00:00:00 00:00:00 [facility] 2021-05-03 2021-05-03 [facility]at [facility] [id number] 00:00:00 00:00:00 [facility] 2021-04-29 2021-04-29 [facility] [id number] 10:09:55 23:59:00 Encounter [facility] 2021-04-29 2021-04-29 Outpatient [place] SLECarmine SLE [id number] SLEH 10:09:55 23:59:00 [facility] 2021-04-29 2021-04-29 Outpatient JOSÉ ANTONIO [facility] SLE [id number] SLEH 10:09:10 10:08:00 [facility] 2021-04-29 2021-04-29 [facility] [id number] 10:00:00 10:08:00 Encounter [facility] 2021-04-29 2021-04-29 [facility] [id number] 09:35:14 09:59:00 Encounter [facility] 2021-04-29 2021-04-29 Outpatient [place] SLE SLE [id number] SLEH 09:35:14 09:59:00 [facility] 2021-04-29 2021-04-29 Outpatient [place] SLE SLE [id number] SLEH 09:35:00 09:34:00 [facility] 2021-04-29 2021-04-29 [facility] [id number] 09:00:00 09:34:00 Encounter [facility] 2021-04-29 2021-04-29 Orders Daniloin, [facility] [id number] 08:33:09 08:43:09 Only [facility] 2021-04-29 2021-04-29 Outpatient PING SLE SLE [id number] SLEH 08:33:09 08:33:09 2021-04-29 2021-04-29 Outpatient PADMINI SLE SLE [id number] SLEH 00:00:00 00:00:00 [facility] 2021-04-02 2021-04-02 Telephone [facility] 1.2.840.114 [id number] Univers 00:00:00 00:00:00 Pearl VENEGAS 350.1.13.10 i ty of [place] [phone] Mt dical NAL [address] [place] [address] 2021-04-01 2021-04-01 Emergency X [facility] ERT [id number] Univers 13:07:00 15:37:00 CHANDRAKANT luxgaurang [facility] 2021-04-01 2021-04-01 Emergency [facility] [id number] Univers 13:07:00 15:37:00 Chandrakant VENEGAS 350.1.13.10 i ty [place] [phone] [address] 2021-03-18 2021-03-18 [facility] [id number] [facility] St 00:00:00 00:00:[address] [facility] 2021-03-16 2021-03-16 [facility] 1.2.840.114 [id number] Univers 00:00:00 00:00:00 Pearl Venegas 350.1.13.10 i [place] [phone] Mt dicor nal [address] [place] [address] 2021-03-15 2021-03-15 [facility] 1.2.840.114 [id number] Univers 00:00:00 00:00:00 Pearl Venegas 350.1.13.10 i [place] [phone] Mt dic[address] 2021-03-12 2021-03-12 [facility] [id number] 12:16:00 15:05:00 Encounter Veena Alexandre [facility] 2021-03-12 2021-03-12 Outpatient [place] [facility] Radiology [id number] SLEH 06:21:33 15:05:00 [facility] 2021-03-12 2021-03-[address] [facility] [id number] 00:00:00 00:00:00 Mena [facility] 2021-03-10 2021-03-10 Documentat [facility] [id number] 00:00:00 00:00:00 ion Jeffrey [facility] 2021-03-10 2021-03-10 Orders Derik, [facility] [id number] 00:00:00 00:00:00 [facility] 2021-02-23 2021-02-23 Hospital PNIG Carrascoin, [facility] [id number] 09:28:20 23:59:00 Encounter [facility] 2021-02-23 2021-02-23 Outpatient [facility] SLE [id number] SLE 00:00:00 23:59:00 [facility] 2021-02-23 2021-02-23 Outpatient [facility] SLE [id number] SLE 10:02:57 10:02:57 2021-02-23 2021-02-[address] [facility] [id number] 00:00:00 00:00:00 Orders Nancy [facility] 2021-02-05 2021-02-05 Outpatient Juan J GUIDRY [facility] [id number] Univers 10:50:00 10:50:00 TAM schmitt [facility] 2021-02-05 2021-02-05 Imm/Inj Nurse, Adc Pob Immunization [facility] 1.2.840.114 [id number] Univers 10:46:45 10:47:11 Visit Tam Guidry 350.1.13 .10 oskar [facility] 4.2.7.2.686 Anyi Reza [id number] [address] 2021-02-04 2021-02-04 Documentat [facility] [id number] 00:00:00 00:00:00 devon [facility] 2021-02-04 2021-02-04 Documentat Ramirez, [facility] [id number] 00:00:00 00:00:00 devon [facility] 2021-02-04 2021-02-04 Documentat Ramirez, [facility] [id number] 00:00:00 00:00:00 devon [facility] 2021-02-03 2021-02-[address] [facility] [id number] 09:42:34 10:12:34 Visit Veena Quan [facility] 2021-02-03 2021-02-03 Outpatient SLEH SLEH [id number] SLEH 00:00:00 00:00:00 2021-02-03 2021-02-[address] [facility] [id number] 00:00:00 00:00:00 [facility] 2021-02-03 2021-02-[address] [facility] [id number] 00:00:00 00:00:00 devon [facility] 2021-02-03 2021-02-[address] [facility] [id number] 00:00:00 00:00:00 Only [facility] 2021-02-02 2021-02-[address] [facility] [id number] 00:00:00 00:00:00 [facility] 2021-01-28 2021-01-[address] [facility] [id number] 00:00:00 00:00:00 [facility] 2021-01-25 2021-01-[address] [facility] [id number] 00:00:00 00:00:00 devon [facility] 2021-01-212021-01-21 [facility], [facility] [id number] 10:27:08 23:59:00 Encounter [facility] 2021-01-21 2021-01-21 [facility] [id number] 10:27:00 10:27:00 Encounter [facility] 2021-01-21 2021-01-21 [facility] Padmini, [facility] [id number] 09:58:59 10:08:59 Only [facility] 2021-01-21 2021-01-21 Outpatient MARISAADERI, SLEH SLEH [id number] SLEH 00:00:00 00:00:00 [facility] 2021-01-21 2021-01-21 Outpatient MARISAADERI, SLEH SLEH [id number] SLEH 00:00:00 00:00:00 [facility] 2021-01-21 2021-01-21 Outpatient EL SLEH SLEH [id number] SLEH 00:00:00 00:00:00 2020-12-30 2020-12-30 Outpatient SLEH SLEH [id number] SLEH 00:00:00 00:00:00 2020-12-17 2020-12-17 Outpatient EL SLEH SLEH [id number] SLEH 00:00:00 00:00:00 2020-12-17 2020-12-17 Outpatient KHADERI, SLEH SLEH [id number] SLEH 00:00:00 00:00:00 [facility] 2020-12-17 2020-12-17 Outpatient MARISAADERI, SLEH SLEH [id number] SLEH 00:00:00 00:00:00 [facility] 2020-12-02 2020-12-[address] [facility] [id number] [facility] 00:[facility]00 00:00:00 [facility] 2020-11-26 2020-11-26 [facility] Padmini [facility] [id number] 13:14:00 18:00:00 Encounter [facility] 2020-11-26 2020-11-26 Outpatient EL SLE SLE [id number] SLEH 00:00:00 00:00:00 2020-11-18 2020-11-18 Abstract Yohannes, [facility] [id number] 00:00:00 00:00:00 [facility] 2020-11-16 2020-11-16 [facility]at [facility] [id number] 00:00:00 00:00:00 [facility] 2020-11-16 2020-11-[address] [facility] [id number] 00:00:00 00:00:00 Marta Lindsey [facility] 2020-11-10 2020-11-[address] [facility] [id number] 00:00:00 00:00:[address] [facility] 2020-11-05 2020-11-05 Documentat [facility] [id number] 00:00:00 00:00:00 devon [facility] 2020-11-04 2020-11-04 Office System, [facility] [id number] 09:38:44 10:38:44 Visit Provider [facility] 2020-11-04 2020-11-04 Outpatient SLE SLE [id number] SLEH 00:00:00 00:00:00 2020-10-28 2020-10-28 Office PING Padmini, [facility] [id number] 08:37:21 10:38:34 Visit [facility] 2020-10-28 2020-10-28 Outpatient SLE SLE [id number] SLEH 00:00:00 00:00:00 2020-10-28 2020-10-28 Outpatient SLE SLE [id number] SLEH 00:00:00 00:00:00 2020-10-28 2020-10-28 Telephone [facility] [id number] 00:00:00 00:00:00 [facility] 2020-10-28 2020-10-28 Documentat [facility] [id number] 00:00:00 00:00:00 ion [facility] 2020-10-27 2020-10-27 Telephone [facility] [id number] 00:00:00 00:00:00 [facility] 2020-10-21 2020-10-21 Outpatient SLEH SLE [id number] SLEH 00:00:00 00:00:00 2020-10-21 2020-10-21 [facility] 1.2.840.114 [id number] Univers 00:00:00 00:00:00 Pearl Venegas 350.1.13.10 i [facility] [id number] Anyi jauregui [facility] [phone] Mt dical nal [address] [place] [address] 2020-10-20 2020-10-[address] [facility] [id number] 00:00:00 00:00:[address] [facility] 2020-10-19 2020-10-19 Telephone [facility] [id number] 00:00:00 00:00:00 [facility] 2020-10-19 2020-10-[address] [facility] [id number] 00:00:00 00:00:00 devon [facility] 2020-10-15 2020-10-15 Documentat [facility] [id number] 00:00:00 00:00:00 devon [facility] 2020-10-14 2020-10-14 [facility] 1.2.840.114 [id number] [facility] 11:21:55 11:27:44 ne Visit Pearl Venegas 350.1.13.10 ity [facility] [place] [phone] Mt dical nal 044 [facility] 2020-10-14 2020-10-14 Outpatient [facility] [id number] Univers 09:20:00 09:20:00 PEARL [id number] [facility] 2020-10-14 2020-10-14 Outpatient R [facility]PORT[facility] [id number] Univers 09:20:00 09:20:00 PEARL [facility] 2020-10-13 2020-10-13 [facility] 1.2.840.114 [id number] Univers 00:00:00 00:00:00 Pearl Venegas 350.1.13.10 i ty [place] [phone] Mt dical nal [address] [place] [address] 2020-10-12 2020-10-12 Documentat [facility] [id number] 00:00:00 00:00:[address] [facility] 2020-10-08 2020-10-08 [facility] [id number] 09:30:00 23:59:00 Encounter [facility] 2020-10-08 2020-10-08 Orders [facility] [id number] 10:50:16 11:05:16 Only [facility] 2020-10-08 2020-10-08 [facility] [id number] 08:45:00 09:29:00 Encounter [facility] 2020-10-08 2020-10-08 Outpatient PADMINI [facility] [id number] SLE 00:00:00 00:00:00 [facility] 2020-10-08 2020-10-08 Outpatient PING W[place] [facility] [id number] SLE 00:00:00 00:00:00 [facility] 2020-10-08 2020-10-08 [facility] [id number] SLE 00:00:00 00:00:00 2020-10-08 2020-10-08 Outpatient [place]ING [place] SLE SLE [id number] SLEH 00:00:00 00:00:00 [facility] 2020-10-08 2020-10-08 Outpatient PDAMINI SLE SLE [id number] SLE 00:00:00 00:00:00 [facility] 2020-10-08 2020-10-08 Outpatient PADMINI SLE SLE [id number] SLE 00:00:00 00:00:00 [facility] 2020-10-08 2020-10-08 [facility] [id number] 00:00:00 00:00:00 Only [facility] 2020-09-21 2020-09-[address] [facility] [id number] 00:00:00 00:00:00 Only [facility] 2020-09-11 2020-09-[address] [facility] [id number] 00:00:00 00:00:00 Nickie Agustin [facility] 2020-09-10 2020-09-[address] [facility] [id number] 00:00:00 00:00:00 ion Jeffrey [facility] 2020-09-03 2020-09-[address] [facility] [id number] 00:00:00 00:00:00 ion Samira Arita [facility] 2020-09-02 2020-09-[address] [facility] [id number] [facility] 00:00:00 00:00:00 ion Marta Lindsey [facility] 2020-09-02 2020-09-[address] [facility] [id number] 00:00:00 00:00:00 [facility] 2020-09-01 2020-09-[address] [facility] [id number] 10:00:00 23:59:00 [facility] 2020-09-01 2020-09-01 Follow-Up PING Yeh [facility] [id number] 09:48:56 10:18:56 Nickie Agustin [facility] 2020-09-01 2020-09-01 Outpatient [facility] [id number] SLE 00:00:00 00:00:00 2020-09-01 2020-09-01 Outpatient JOSE FRANCISCO [facility] [id number] SLE 00:00:00 00:00:00 2020-09-01 2020-09-[address] [facility] [id number] 00:00:00 00:00:00 [facility] 2020-09-01 2020-09-01 Documentat Mauricio, [facility] [id number] 00:00:00 00:00:00 devon Artia [facility] 2020-08-31 2020-08-[address] [facility] [id number] 00:00:00 00:00:00 Anat [facility] 2020-08-19 2020-08-19 Emergency [facility] 1.2.840.114 [id number] 07:35:00 10:07:00 Wendy Venegas 350.1.13.10 [place] 4.2.7.2.686 [place] [id number] 08 2020-08-19 2020-08-19 Emergency [facility] 1.2.840.114 [id number] [facility] 07:35:00 10:07:00 Wendy Venegas 350.1.13.10 ity [place] 4.2.7.2.686 [facility] [phone] [place] [address] Branch 2020-08-19 2020-08-19 Orders Doctor MONAE 1.2.840.114 [id number] 00:00:00 00:00:00 Only Unassigned, TOY 350.1.13.10 [place] [facility] 4.2.7.2.686 [id number] 009 2020-08-19 2020-08-19 Orders Doctor MONAE 1.2.840.114 [id number] Univers 00:00:00 00:00:00 Only Unassigned, TOY 350.1.13.10 ity of [facility] 4.2.7.2.686 Bryce as [phone] [address] 2020-08-03 2020-08-03 Refill [facility] 1.2.840.114 [id number] 00:00:00 00:00:00 Pearl Venegas 350.1.13.10 [place] 4.2.7.2.686 Professio [phone] [address] 2020-08-03 2020-08-03 Refill [facility] 1.2.840.114 [id number] Univers 00:00:00 00:00:00 Pearl Venegas 350.1.13.10 i [place] [phone] Mt dical [address] 2020-07-19 2020-07-[address] [facility] [id number] 13:46:40 13:56:40 on [place] [facility] 2020-07-19 2020-07-19 Outpatient SLE SLE [id number] SLEH 00:00:00 00:00:00 2020-07-19 2020-07-[address] [facility] [id number] [facility] 2020-07-18 2020-07-18 Outpatient [facility] SLE [id number] [facility] 00:00:00 00:00:00 2020-06-28 2020-06-28 Outpatient [facility] [id number] [facility] 00:00:00 00:00:00 2020-06-25 2020-06-25 Emergency [facility], [facility] [id number] 17:04:00 23:09:00 [place] Venegas [id number] [place] [id number] [place] [id number] 2020-06-25 2020-06-25 [facility], [facility] [id number] [facility] 17:04:00 23:09:00 [place] Venegas [id number] [id number] [phone] [facility] 084 [place] 2020-06-25 2020-06-25 Orders Doctor MONAE [id number] 00:00:00 00:00:00 Only Unassigned, TOY [id number] [facility] [id number] [id number] 2020-06-25 2020-06-25 Orders Doctor MONAE 1.2.840.114 [id number] [facility] 00:00:00 00:00:00 Only Unassigned, TYO 350.1.13.10 ity of [facility] 4.2.7.2.686 Bryce as [phone] [address] 2020-06-22 2020-06-22 [facility] 1.2.840.114 [id number] 00:00:00 00:00:00 Pearl Venegas 350.1.13.10 [place] 4.2.7.2.686 Professio [phone] [address] 2020-06-22 2020-06-22 [facility] 1.2.840.114 [id number] [facility] 00:00:00 00:00:00 Pearl Venegas 350.1.13.10 [place] [phone] Mt dical [address] 2020-03-13 2020-03-13 Outpatient EL SLEH SLEH [id number] [facility] 00:00:00 00:00:00 2020-03-13 2020-03-13 Outpatient SLEH SLEH [id number] [facility] 00:00:00 00:00:00 2020-03-13 2020-03-13 Outpatient JESSICA, SLEH SLEH [id number] [facility] 00:00:00 00:00:00 [facility] 2020-03-13 2020-03-13 Outpatient EL MARISAADERI, SLEH SLE [id number] [facility]H 00:00:00 00:00:00 [facility] 2020-02-18 2020-02-18 Outpatient SLEH SLEH [id number] [facility] 00:00:00 00:00:00 2020-02-18 2020-02-18 Outpatient EL SLEH SLEH [id number] [facility]H 00:00:00 00:00:00 2020-02-18 2020-02-18 Outpatient SLEH SLEH [id number] [facility]H 00:00:00 00:00:00 2020-02-05 2020-02-05 Outpatient SLEH SLEH [id number] [facility] 00:00:00 00:00:00 2020-02-05 2020-02-05 Outpatient DANILORI, SLEH SLE [id number] SLEH 00:00:00 00:00:00 [facility] 2020-02-05 2020-02-05 Outpatient SLEH SLEH [id number] SLEH 00:00:00 00:00:00 2020-01-28 2020-01-28 Outpatient EL SLEH SLEH [id number] [facility]H 00:00:00 00:00:00 2020-01-14 2020-01-14 Outpatient EL SLEH SLE [id number] SLEH 00:00:00 00:00:00 2019-09-11 2019-09-11 Telephone [facility] 1.2.840.114 [id number] 00:00:00 00:00:00 Pearl Venegas 350.1.13.10 [place] 4.2.7.2.686 John [phone] [address] 2019-09-11 2019-09-11 [facility]phone [facility] 1.2.840.114 [id number] [facility] 00:00:00 00:00:00 Pearl Venegas 350.1.13.10 [place] [phone] Mt dical [address] 2019-08-20 2019-08-20 Outpatient SLEH SLE [id number] SLEH 00:00:00 00:00:00 [id number] 2019-02-08 2019-02-08 Orders Doctor MONAE 1.2.840.114 [id number] 00:00:00 00:00:00 Only Unassigned, TOY 350.1.13.10 [facility] 4.2.7.2.686 [phone] 009 2019-02-08 2019-02-08 Orders Doctor MONAE 1.2.840.114 [id number] [facility] 00:00:00 00:00:00 Only Unassigned, TOY 350.1.13.10 ity of [facility] 4.2.7.2.686 Bryce as [phone] [address] 2019-01-31 2019-01-31 Orders Doctor MONAE 1.2.840.114 [id number] 00:00:00 00:00:00 Only Unassigned, TOY 350.1.13.10 [facility] [phone] 2019-01-31 2019-01-31 Orders Doctor MONAE 1.2.840.114 [id number] [facility] 00:00:00 00:00:00 Only Unassigned, TOY 350.1.13.10 ity of [facility] 4.2.7.2.686 Bryce as [phone] [address] 2019-01-23 2019-01-23 Telephone MarcelBrenda [facility] 1.2.840.114 [id number] 00:00:00 00:00:00 Yumiko Venegas 350.1.13.10 [place] 4.2.7.2.686 Professio [phone] nal [address] [place] [address] 2019-01-23 2019-01-23 Telephone Brenda Rod [facility] 1.2.840.114 [id number] [facility] 00:00:00 00:00:00 Yumiko Venegas 350.1.13.10 [place] [phone] [address] 2019-01-21 2019-01-21 Office Brenda Rod [facility] 1.2.840.114 [id number] 15:52:08 16:26:09 Visit C Ly 350.1.13.10 [place] 4.2.7.2.686 Professio [phone] [address] 2019-01-21 2019-01-21 Office Brenda Rod [facility] 1.2.840.114 [id number] Univers 15:52:08 16:26:09 Visit C Ly 350.1.13.10 i [place] [phone] [address] 2019-01-17 2019-01-17 Orders Doctor MONAE 1.2.840.114 [id number] 00:00:00 00:00:00 Only Unassigned, TOY 350.1.13.10 [facility] [id number] 009 2019-01-17 2019-01-17 Orders Doctor MONAE 1.2.840.114 [id number] [facility] 00:00:00 00:00:00 Only Unassigned, TOY 350.1.13.10 ity of [facility] 4.2.7.2.686 Bryce as [phone] [address] 2019-01-07 2019-01-07 Telephone Brenda Rod [facility] 1.2.840.114 [id number] [facility] 00:00:00 00:00:00 C Ly 350.1.13.10 [place] [phone] [address] 2019-01-07 2019-01-07 Orders Doctor MONAE 1.2.840.114 [id number] [facility] 00:00:00 00:00:00 Only Unassigned, TOY 350.1.13.10 ity of [facility] 4.2.7.2.686 Bryce as [phone] [address] 2019-01-02 2019-01-02 Orders Doctor MONAE 1.2.840.114 [id number] 00:00:00 00:00:00 Only Unassigned, TOY 350.1.13.10 [facility] 4.2.7.2.686 [id number] 2019-01-02 2019-01-02 Orders Doctor MONAE 1.2.840.114 [id number] [facility] 00:00:00 00:00:00 Only Unassigned, TOY 350.1.13.10 ity of [facility] 4.2.7.2.686 Bryce as [phone] [address] 2019-01-02 2019-01-02 Refill Brenda Rod [facility] 1.2.840.114 [id number] Univers 00:00:00 00:00:00 C Sanderson 350.1.13.10 i [place] [phone] [address] 2018-12-28 2018-12-28 Orders Doctor MONAE 1.2.840.114 [id number] 00:00:00 00:00:00 Only Unassigned, TOY 350.1.13.10 [facility] 4.2.7.2.686 [phone] 009 2018-12-28 2018-12-28 Orders Doctor MONAE 1.2.840.114 [id number] [facility] 00:00:00 00:00:00 Only Unassigned, TOY 350.1.13.10 ity of [facility] 4.2.7.2.686 Bryce as [phone] [address] 2018-12-21 2018-12-21 Enochs Brenda Rod [facility] 1.2.840.114 [id number] [facility] 00:00:00 00:00:00 C Sanderson 350.1.13.10 i [place] [phone] [address] 2018-12-17 2018-12-17 Orders Doctor MONAE 1.2.840.114 [id number] [facility] 00:00:00 00:00:00 Only Unassigned, TOY 350.1.13.10 ity of [facility] 4.2.7.2.686 Bryce as [phone] [place] [address] [address] 2016-10-19 2016-10-19 Orders Doctor MONAE Raygoza2.840.114 [id number] 00:00:00 00:00:00 Only Unassigned, TOY 350.1.13.10 [facility] 4.2.7.2.686 [id number] 009 2016-10-19 2016-10-19 Orders Doctor MONAE 1.2.840.114 [id number] [facility] 00:00:00 00:00:00 Only Unassigned, TOY 350.1.13.10 ity of [facility] 4.2.7.2.686 Bryce as [phone] [place] [address] [address] 2016-10-13 2016-10-13 Orders Doctor MONAE Lulu.2.840.114 [id number] [facility] 00:00:00 00:00:00 Only Unassigned, TOY 350.1.13.10 ity of [facility] 4.2.7.2.686 Bryce as [phone] [address] Results Test Description Test Time Test Comments Results Result [facility] e Comments MR, ABDOMEN, WITH 2021-05-03 REFERRING MD: 14:52:00 ANIL SALVADOR Include [facility] - MEDICAL Vessels CENTERName: KALEN GRIGGS : [...] Mckeon Verified Date/Time: 05/03/2021 14:52:21 Reading Location: [address] Transitional Reading Room , CHEST, 2021-04-29 REFERRING MD: WITHOUT CONTRAST 16:45:00 ANIL MODESTO Mets [facility] : 1955 Sex: M [...] Dios Verified Date/Time: 04/29/2021 16:45:28 Reading Location: [facility] C013Y CT Body Reading Room AND/OR JOINT 2021-04-29 REFERRING MD: IMAGING, WHOLE 14:33:00 ANIL SALVADOR BODY METS [facility] : 1955 Sex: M FINAL REPORT PROCEDURE: BONE SCAN, WHOLE BODY CPT CODE: 34646 INDICATION: HCC PROTOCOL: 21.8 mCi of Tc-99m [...] Owen Verified Date/Time: 04/29/2021 14:33:51 Reading Location: [facility] 26[facility] 2618B Nuc Med Reading Room Basic Metabolic Panel 2021-04-29 12:07:01 Test Item Value Reference Range Interpretation Comme nts Sodium (test code = 134 meq/L 136-145 L 2951-2) Potassium (test code = 4.5 meq/L 3.5-5.1 2823-3) Chloride (test code = 100 meq/L 98-107 2075-0) CO2 (test code = 2027-9) 22 meq/L 22-29 BUN (test code = 3094-0) 11 mg/dL 7-21 Creatinine (test code = 0.82 mg/dL 0.57-1.25 2160-0) Glucose (test code = 124 mg/dL 70-105 H 2345-7) Calcium (test code = 8.9 mg/dL 8.4-10.2 92623-3) EGFR (test code = 95 mL/min/1.73 [place] [address]-7) ACCURATE CREATININE ROXANA JA IN PREDICTING GLOMERULAR FILT RATION RATE. ESTIMATED GFR IS NOT APPLICAB LE FOR DIALYSIS PATIEN TS. MADALYN (test code = MADALYN) Television Specialist ID - ELOY Adamesecimen slightly icteric Lab Interpretation (test Abnormal code = 47356-0) [facility] [id number] 12:07:01 Test Item Value Reference Range Interpretation Comments Protein, Total (test 7.3 See_Comment [Autom ated code = 2885-2) message] The system which generated this result transmitted reference range : 6.0 - 8.3 gm/dL . The reference range was not used to interpr et this result as normal/abnormal . Albumin (test code = 3.3 g/dL 3.5-5.0 L 84126-4) Total Bilirubin (test 1.8 mg/dL 0.2-1.2 H code = 1974-2) Bilirubin, Direct 0.8 mg/dL 0.1-0.5 H (test code = 1967-7) Alkaline Phosphatase 148 U/L 40-150 (test code = 6768-6) AST (test code = 31 U/L 5-34 1920-8) ALT (test code = 23 U/L 6-55 1742-6) MADALYN (test code = MADALYN) Television Specialist ID - ELOY MSpecimen slightly icteric Lab Interpretation Abnormal (test code = 76002-2) [facility]OLIC [id number] 12:07:01 Test Item Value Reference Range Interpretation [...] S NOT APPLICABLE FOR DIALYSIS PATIEN TS. Television Specialist ID - ELOY MSpecimen slightly ictericHEPATIC FUNCTION [id number] 12:07:01 Test Item Value Reference Range Interpretation [...] (test code = 23 U/L 6-55 347) Television Specialist ID - ELOY MSpecimen slightly ictericAlpha fetoprotein (AFP), tumor [id number] 11:59:44 Test Item Value Reference Range Interpretation Comments Alpha-Fetoprotein (test 2.5 ng/mL <10.0 code = 1834-1) MADALYN (test code = MADALYN) Television Specialist LEOPOLDO Butler Lab Interpretation (test Normal code = 77802-8) [facility]ALPHA FETOPROTEIN (AFP), TUMOR [id number] 11:59:44 Test Item Value Reference Range Interpretation Comments ALPHA-FETOPROTEIN (BEAKER) (test 2.5 ng/mL <10.0 code = 1094) Television Specialist LEOPOLDO LYONS MProthrombin time/[id number] 11:32:54 Test Item Value Reference Interpretation Comments Range Protime (test code = 15.7 See_Comment H [Autom ated 1562-2) message] The system which generated this result transmitted reference range : 11.9 - 14.2 seconds. The reference range was not used to interpret this result as normal/abnormal . INR (test code = 1.27 See_Comment [Automated 7010-6) message] The system which generated this result [...] valves. Lab Interpretation Abnormal (test code = 51155-2) [facility] HospitalPROTHROM[facility]/[id number] 11:32:54 Test Item Value Reference Range Interpretation Comments PROTIME (BEAKER) 15.7 seconds 11.9-14.2 H (test code = 759) INR (BEAKER) (test 1.27 See_Comment [Automat ed message] code = 370) The system [employer] generated this result transmitted ref erence range: [...] 6.3 See_Comment [A utomated message] The system [employer] generated this result transmitted ref erence range: 3.5 - 10 .5 K/L. The refe rence range was not u sed to interpret this result as normal/abnor mal. RBC (test code = 789-8) 4.40 See_Comment L [Au tomated message] The system [employer] generated this result transmitted ref erence range: 4.63 - 6 .08 M/L. The refe rence range was not u sed to interpret this result as normal/abnor mal. MCHC (test code = 786-4) 29.8 See_Comment L [A utomated message] The system [employer] generated this result transmitted ref erence range: [...] L [Aut omated message] 777-3) The system [employer] generated this result transmitted ref erence range: 150 - 45 0 K/CU MM. The referen ce range was not u sed to interpret this result as normal/abnor mal. MPV (test code = [place] 04653-6) to abnormal Pollo telet population distribution. nRBC (test code = 413) 0 See_Comment [Aut omated message] The system [employer] generated this result transmitted ref erence range: [...] See_Comment [Aut omated message] 670) The system [employer] generated this result transmitted ref erence range: 1.78 - 5 .38 K/L. The refe rence range was not u sed to interpret this result as normal/abnor mal. # Lymphs (test code = 1.92 See_Comment [Auto mated message] 414) The system [employer] generated this result transmitted ref erence range: 1.32 - 3 .57 K/L. The refe rence range was not u sed to interpret this result as normal/abnor mal. # Monos (test code = 0.60 See_Comment [Autom ated message] 415) The system [employer] generated this result transmitted ref erence range: 0.30 - 0 .82 K/L. The refe rence range was not u sed to interpret this result as normal/abnor mal. # Eos (test code = 416) 0.11 See_Comment [Au tomated message] The system [employer] generated this result transmitted ref erence range: 0.04 - 0 .54 K/L. The refe rence range was not u sed to interpret this result as normal/abnor mal. # Baso (test code = 417) 0.05 See_Comment [A utomated message] The system [employer] generated this result transmitted ref erence range: 0.01 - 0 .08 K/L. The refe rence range was not u sed to interpret this result as normal/abnor mal. Immature 0 % 0-1 Granulocytes-Relative (test code = 2801) Lab Interpretation (test Abnormal code = 45133-6) [facility] W/PLT COUNT & AUTO [id number] 11:25:26 Test Item Value Reference Range Interpretation [...] PERCENT (BEAKER) (test code = 2801) TROPONIN [id number] 19:45:34 Test Item Value Reference Interpretation Comments Range TROPONIN I (test 0.004 ng/mL See_Comment [Automated code = 7144012491) message] The system which generated this result [...] biotin. Lab Interpretation Normal (test code = 37675-7) [facility] WITH [id number] 19:42:16 Test Item Value Reference Range Interpretation [...] (test code = 55.0 fL 38.5-51.6 H 09617-0) RDW-CV (test code = 21.7 % 12.1-15.4 H 788-0) PLT (test code = See_Comment L [Automated 777-3) message] The sy stem which generated this result transmitted reference range : 150 - 328 10*3/ ?L. The reference r mela was not used to interpret this result as normal/abnormal . MPV (test code = Not Measure d 94443-9) IPF % (test code = 3.2 % 1.2-10.7 Platelet count 3020156426) measured by fluorescence method. NRBC/100 WBC (test See_Comment [Automat ed code = 1188345951) message] The system which generated this result transmitted reference range : 0.0 - 10.0 /100 WBCs. The refer ence range was not u sed to interpret th is result as normal/abnormal . NRBC x10^3 (test code <0.01 See_Comment [Auto mated = 3879497788) message] The s ystem which generated this result transmitted reference range : 10*3/?L. The reference range was not used to interpret this result as normal/abnormal . GRAN MAT (NEUT) % 42.9 % (test code = 770-8) IMM GRAN % (test code 0.60 % = 3468997785) LYMPH % (test code = 38.0 % 736-9) MONO % (test code = 14.2 % 5905-5) EOS % (test code = 3.3 % 713-8) BASO % (test code = 1.0 % 706-2) GRAN MAT x10^3(ANC) 2.24 10*3/uL 1.99-6.95 (test code = 3836560535) IMM GRAN x10^3 (test 0.03 10*3/uL 0.00-0.06 code = 5170228440) LYMPH x10^3 (test code 1.98 10*3/uL 1.09-3.23 = 731-0) MONO x10^3 (test code 0.74 10*3/uL 0.36-1.02 = 742-7) EOS x10^3 (test code = 0.17 10*3/uL 0.06-0.53 711-2) BASO x10^3 (test code 0.05 10*3/uL 0.01-0.09 = 704-7) Lab Interpretation Abnormal (test code = 51542-1) [facility]. METABOLIC PANEL (99328)2021-04-01 19:34:12 Test Item Value Reference Range Interpretation Comments NA (test code = 135 mmol/L 135-145 9271702527) K (test code = 3.8 mmol/L 3.5-5.0 6006922473) CL (test code = 104 mmol/L 98-108 0224558132) CO2 TOTAL (test code = 23 mmol/L 23-31 7102036541) AGAP (test code = 2-16 4854145462) BUN (test code = 9 mg/dL 7-23 7781850352) GLUCOSE (test code = 195 mg/dL 70-110 H 8190558598) CREATININE (test code = 0.65 mg/dL 0.60-1.25 9721647870) TOTAL BILI (test code = 1.3 mg/dL 0.1-1.1 H 1955419699) CALCIUM (test code = 8.2 mg/dL 8.6-10.6 L 6412255185) T PROTEIN (test code = 6.6 g/dL 6.3-8.2 1532700530) ALBUMIN (test code = 2.9 g/dL 3.5-5.0 L 2504690975) ALK PHOS (test code = 143 U/L 34-122 H 6056386838) ALTv (test code = 28 U/L 5-50 1742-6) AST(SGOT) (test code = 47 U/L 13-40 H 4050075384) eGFR (test code = mL/min/1.73m2 8780321257) MADALYN (test code = MADALYN) Association of [...] tests). Lab Interpretation Abnormal (test code = 47232-1) [facility]ressAMMON[facility], [id number] 19:32:52 Test Item Value Reference Range Interpretation Comments AMMONIA (test code = 3644605207) 48 umol/L 9-33 H Lab Interpretation (test code = Abnormal 89123-1) [facility] CypressPROTHROMBIN TIME / [id number] 19:01:25 Test Item Value Reference Range Interpretation Comments PROTIME PATIENT (test See_Comment H [Auto mated message] code = 5964-2) The system [employer] generated this result transmitted ref erence range: 12.0 - 1 4.7 Seconds. The reference range was not used to int erpret this result as normal/abnormal . INR (test code = 6301-6) Nor mal INR <1.1; Warfarin Therap eutic range 2.0 to 3. 0 or 2.5 to 3.5, dep ending upon the indica tions. Lab Interpretation (test Abnormal code = 87680-4) [facility], EMBOLIZATION, EXTENSIVE - ARTERIAL 2021-03-12 14:48:00REFERRING : ANIL SALVDAOR For TACEReason for Exam:- >[facility] : 1955 Sex: [...] blood loss: < 5 cc. Specimen: None. weigh tank operator: Carolyn. Rn Urology: Dilip. Fluoroscopy Time: 14.1 min. Dose (Ka,r): [...] accessed using a micropuncture set. A 5 Liberian sheath was pollo inga. Diagnostic mesenteric angiogram was performed to access vessel patency and exclude arterio-portal shunting. A 5 Liberian Anaya catheter which was used to select the celiac trunk for a DSA run. A 3 Liberian microcatheter was advanced coaxially through the Anaya [...] hemostasis using closure device. Signed: Anthony Jaime [facility] Verified Date/Time: 03/12/2021 14:48:55 Reading Locat ion: [facility] B1 P048 Angio Body Reading Room HEPATIC FUNCTION [id number] 07:40:34 Test Item Value Reference Range Interpretation [...] (test code = 19 U/L 6-55 347) Television Specialist ID - EMERSONSpecimen slightly ictericBASIC METABOLIC [id number] 07:40:33 Test Item Value Reference Range Interpretation [...] S NOT APPLICABLE FOR DIALYSIS PATIEN TS. Television Specialist ID - YOSEPHSpecimen slightly ictericPROTHROMBIN TIME/[id number] 07:22:36 Test Item Value Reference Range Interpretation Comments PROTIME (BEAKER) 16.9 seconds 11.9-14.2 H (test code = 759) INR (BEAKER) (test 1.40 See_Comment [Automat ed message] code = 370) The system [employer] generated this result transmitted ref erence range: [...] (BEAKER) (test code = 2801) BASIC METABOLIC [id number] 10:56:30 Test Item Value Reference Range Interpretation [...] S NOT APPLICABLE FOR DIALYSIS PATIEN TS. Television Specialist ID - AMADOR FSpecimen slightly ictericHEPATIC FUNCTION PANEL 2021-02-23 10:56:30 Test [...] (test code = 28 U/L 6-55 347) Television Specialist ID - AMADOR FSpecimen slightly [id number] 10:28:14 Test Item Value Reference Range Interpretation Comments PARTIAL THROMBOPLASTIN TIME 34.9 seconds 22.5-36.0 (BEAKER) (test code = 760) PROTHROMBIN TIME/[id number] 10:27:34 Test Item Value Reference Range Interpretation Comments PROTIME (BEAKER) 17.4 seconds 11.9-14.2 H (test code = 759) INR (BEAKER) (test 1.45 See_Comment [Automat ed message] code = 370) The system [employer] generated this result transmitted ref erence range: [...] (BEAKER) (test code = 2801) MR, ABDOMEN, [id number] 12:00:00REFERRING MD: ANIL SALVADOR Include Abdominal VesselsST. [facility]Name: [facility] : 1955 Sex: [...] V (series 3, image 22) is likely outside energy sales representatives of a cyst, unchanged.*An 11 mm focus [...] vein. Signed: Stefano Mckeon MDReport Verified Date/Time: 01/25/2021 12:00:12 Reading Location: [address] Reading Room Hepatitis C RNA [id number] 16:10:00 Test Item Value Reference Range Interpretation Comments HCV PCR, Quantitative HCV RNA not detected HCV RNA not (test code = 77598-0) detected MADALYN (test code = MADALYN) This test uses a Real-Time Polymerase Chain Reaction (RT-PCR) methodology and was performed using K[employer] Ampliprep/KHOA TaqMan HCV test kit version 2.0 ([employer]). Reportable range for this assay is 15 - 100,000,000 IU per mL (1.18 - 8.00 Log IU/mL). Lab Interpretation Normal (test code = 56153-4) [facility], [id number] 16:10:00 Test Item Value Reference Range Interpretation Comments HCV RESULT COMPONENT HCV RNA not detected HCV RNA not detected (BEAKER) (test code = 2699) This test uses a Real-Time Polymerase Chain Reaction (RT-PCR) methodology and was performed using K[employer] Ampliprep/KHOA TaqMan HCV test kit version 2.0 ([employer]).Reportable range for this assay is 15 - 100,000,000 IU per mL (1.18 - 8.00 Log IU/mL).CT, CHEST, WITHOUT CONTRAST 2021-01-22 15:56:00REFERRING : ANIL SALVADOR Mets [facility] : 1955 Sex: [...] MDReport Verified Date/Time: 01/22/2021 15:56:37 Reading Location: [facility] Diagnostic Imaging Reading Room - [place] [address] ALPHA FETOPROTEIN (AFP), TUMOR [id number] 11:33:00 Test Item Value Reference Range Interpretation Comments ALPHA-FETOPROTEIN (BEAKER) (test 2.1 ng/mL <10.0 code = 1094) Television Specialist ID - ELOY MBASIC METABOLIC [id number] 11:23:00 Test Item Value Reference Range Interpretation [...] S NOT APPLICABLE FOR DIALYSIS PATIEN TS. Television Specialist ID - ELOY EPATIC FUNCTION [id number] 11:23:00 Test Item Value Reference Range Interpretation [...] (test code = 23 U/L 6-55 347) Television Specialist ID - ELOY MCBC W/PLT COUNT & AUTO [id number] 10:58:00 Test Item Value Reference Range Interpretation [...] PERCENT (BEAKER) (test code = 2801) PROTHROMBIN TIME/[id number] 10:46:00 Test Item Value Reference Range Interpretation Comments PROTIME (BEAKER) 16.4 seconds 11.9-14.2 H (test code = 759) INR (BEAKER) (test 1.35 See_Comment [Automat ed message] code = 370) The system [employer] generated this result transmitted ref erence range: [...] For TACEReason for Exam:- >HCC, CIRRHOSIS [facility] : 1955 Sex: MFINAL [...] blood loss: < 5 cc. Specimen: None. weigh tank operator: Xiang Colindres MD.. Rn Urology: None. Fluoroscopy Time: 14.2 min.Reference Air Kerma (Ka, r): 1613 mGy. The skin was anesthetized with lidocaine. The right common femoral artery was accessed using a 21-gaugeneedle and a 0.018 inch microwire. A 4 Liberian catheter was placed over the wire and a 0.035 inch wire was placed through the catheter into the abdominal aorta. A 5 Liberian sheath was placed over the wire. A 5 Liberian SOS-II catheter was used to select the [...] ColindresMDReport Verified Date/Time: 11/27/2020 08:41:43 BASIC METABOLIC [id number] 08:59:00 Test Item Value Reference Range Interpretation [...] S NOT APPLICABLE FOR DIALYSIS PATIEN TS. Television Specialist ID - PIAYA LSpecdayanan slightly ictericHEPATIC FUNCTION [id number] 08:59:00 Test Item Value Reference Range Interpretation [...] (test code = 24 U/L 6-55 347) Television Specialist ID - PIAYA LSpecdayanan slightly ictericPROTHROMBIN TIME/[id number] 08:49:00 Test Item Value Reference Range Interpretation Comments PROTIME (BEAKER) 16.7 seconds 11.9-14.2 H (test code = 759) INR (BEAKER) (test 1.37 See_Comment [Automat ed message] code = 370) The system whic h generated this result transmitted ref erence range: [...] 0-1 PERCENT (BEAKER) (test code = 2801) [id number] 08:49:00 Test Item Value Reference Range Interpretation Comments PARTIAL THROMBOPLASTIN TIME 34.6 seconds 22.5-36.0 (BEAKER) (test code = 760) HEPATITIS C PCR, [id number] 19:54:00 Test Item Value Reference Range Interpretation Comments HCV RESULT COMPONENT HCV RNA not detected HCV RNA not detected (BEAKER) (test code = 2699) This test uses a Real-Time Polymerase Chain Reaction (RT-PCR) methodology and was performed using KHOA Ampliprep/KHOA TaqMan HCV test kit version 2.0 ([employer]).Reportable range for this assay is 15 - 100,000,000 IU per mL (1.18 - 8.00 Log IU/mL).BASIC METABOLIC [id number] 12:10:00 Test Item Value Reference Range Interpretation [...] S NOT APPLICABLE FOR DIALYSIS PATIEN TS. Television Specialist ID - FSEHEPATIC FUNCTION [id number] 12:10:00 Test Item Value Reference Range Interpretation [...] (test code = 26 U/L 6-55 347) Television Specialist ID - FSECBC W/PLT COUNT & AUTO [id number] 12:01:00 Test Item Value Reference Range Interpretation [...] PERCENT (BEAKER) (test code = 2801) PROTHROMBIN TIME/[id number] 11:53:00 Test Item Value Reference Range Interpretation Comments PROTIME (BEAKER) 16.3 seconds 11.9-14.2 H (test code = 759) INR (BEAKER) (test 1.35 See_Comment [Automat ed message] code = 370) The system [employer] generated this result transmitted ref erence range: [...] WHOLE BODY 2020-10-08 17:40:00REFERRING MD: [facility] 1955 Sex: MFINAL REPORT PROCEDURE: BONE SCAN, WHOLE BODY CPT CODE: 55831 INDICATION: Hepatocellular carcinoma PROTOCOL: 21.0 mCi of [...] MDReport Verified Date/Time: 10/08/2020 17:40:47 Reading Location: [address] [place] [address], CHEST, WITHOUT [id number] 12:54:00REFERRING MD: [facility] : 1955 Sex: [...] Hiatal hernia4. Cirrhosis. Signed: Brenda De Dios [facility] Verified Date/Time: 10/08/2020 12:54:21 Reading Location: [facility] C013Y CT Body Reading Room ALPHA FETOPROTEIN (AFP), TUMOR MARKER 2020-10-08 12:52:00 Test Item Value Reference Range Interpretation Comments ALPHA-FETOPROTEIN (BEAKER) (test 2.5 ng/mL <10.0 code = 1094) Television Specialist ID - DEBORAH [facility] METABOLIC [id number] 11:26:00 Test Item Value Reference Range Interpretation [...] S NOT APPLICABLE FOR DIALYSIS PATIEN TS. Television Specialist ID - KRISHNA LHEPATIC FUNCTION [id number] 11:26:00 Test Item Value Reference Range Interpretation [...] (test code = 29 U/L 6-55 347) Television Specialist ID - KRISHNA LCBC W/PLT COUNT & AUTO [id number] 11:14:00 Test Item Value Reference Range Interpretation [...] PERCENT (BEAKER) (test code = 2801) PROTHROMBIN TIME/[id number] 11:12:00 Test Item Value Reference Range Interpretation Comments PROTIME (BEAKER) 16.7 seconds 11.9-14.2 H (test code = 759) INR (BEAKER) (test 1.39 See_Comment [Automat ed message] code = 370) The system [employer] generated this result transmitted ref erence range: <=5.90. The reference range was not used to int erpret this result as normal/abnormal . Effective 10/24/2018: PT Reference Range ChangeNew: 11.9-14.2 Previous: 11.7- 14.7RECOMMENDED COUMADIN/WARFARIN INR THERAPY RANGESSTANDARD DOSE: 2.0-3.0 Includes: PROPHYLAXIS for venous thrombosis, systemic embolization; TREATMENT for venous thrombosis and/or pulmonary embolus.HIGH RISK: Target INR is2.5-3.5 for patients wiht mechanical heart valves.MR, ABDOMEN, [id number] 16:24:00 REFERRING MD: ANIL SALVADOR Include Abdominal VesselsUnlisted Reason for Exam - Click Yes and EnterReason Below->YesUnlisted Reason for Exam->awaiting organ transplant, cirrhosis, screening forcancer [facility] : 1955 [...] (test code < ng/mL <10.0 = 1094) Television Specialist ID - BSBASI METABOLIC [id number] 14:50:00 Test Item Value Reference Range Interpretation [...] S NOT APPLICABLE FOR DIALYSIS PATIEN TS. Television Specialist ID - EDASISpecimen slightly ictericHEPATIC FUNCTION [id number] 14:50:00 Test Item Value Reference Range Interpretation [...] (test code = 26 U/L 6-55 347) Television Specialist ID - EDASISpecimen slightly ictericCBC W/PLT COUNT & AUTO [id number] 14:45:00 Test Item Value Reference Range Interpretation [...] PERCENT (BEAKER) (test code = 2801) PROTHROMBIN TIME/[id number] 14:40:00 Test Item Value Reference Range Interpretation Comments PROTIME (BEAKER) 17.6 seconds 11.9-14.2 H (test code = 759) INR (BEAKER) (test 1.49 See_Comment [Automat ed message] code = 370) The system [employer] generated this result transmitted ref erence range: <=5.90. The reference range was not used to int erpret this result as normal/abnormal . Effective 10/24/2018: PT Reference Range ChangeNew: 11.9-14.2 Previous: 11.7- 14.7RECOMMENDED COUMADIN/WARFARIN INR THERAPY RANGESSTANDARD DOSE: 2.0-3.0 Includes: PROPHYLAXIS for venous thrombosis, systemic embolization; TREATMENT for venous thrombosis and/or pulmonary embolus.HIGH RISK: Target INR is2.5-3.5 for patients wiht mechanical heart valves.Chest 1 [id number] 14:03:55 Small right pleural effusion with right [...] Electronically signed by Daquan Gibson at 19:03 [facility] 2020-08-19 13:32:55 Test Item Value Reference Range Interpretation Comments TROPONIN I (test <0.012 See_Comment [Automated code = 4635244000) message] The system which generated this result [...] ? Lab Interpretation Normal (test code = 69467-8) [facility] [id number] 13:29:55 Test Item Value Reference Range Interpretation Comments NT-proBNP (test code 119 pg/mL See_Comment [Autom ated = 7571532118) message] The system which generated this result transmitted reference range : <=125. The reference range was not used to interpret this result as normal/abnormal . MADALYN (test code = MADALYN) Biotin has been reported to cause a negative bias, interpret results relative to patient's use of biotin. Lab Interpretation Normal (test code = 65062-6) [facility]ressCOVID-19 (ID NOW RAPID TESTING)2020-08-19 13:23:14 Test Item Value Reference Range Interpretation Comments SARS-CoV-2 Rapid ID NOW Not Detected Not Detected (test code = 10408-6) MADALYN (test code = MADALYN) ID NOW COVID-19 Assay is an isothermal nucleic acid amplification test intended for the qualitative detection of nucleic acid from SARS-CoV-2 viral RNA in nasopharyngeal (PRICE LISTER) specimens. It is used under Emergency Use [...] indicated. Lab Interpretation Normal (test code = 20251-8) [facility] (NA, K, CL, CO2, GLUCOSE, BUN, CREATININE, CA)2020-08-19 13:21:13 Test Item Value Reference Range Interpretation Comments NA (test code = 135 mmol/L 135-145 2664770799) K (test code = 4.1 mmol/L 3.5-5.0 7755816014) CL (test code = 106 mmol/L 98-108 1273759723) CO2 TOTAL (test code = 24 mmol/L 23-31 1421092270) AGAP (test code = 2-16 9518169097) BUN (test code = 7 mg/dL 7-23 2953048698) GLUCOSE (test code = 216 mg/dL 70-110 H 2532101950) CREATININE (test code = 0.59 mg/dL 0.60-1.25 L 5667039133) CALCIUM (test code = 8.2 mg/dL 8.6-10.6 L 9665009511) eGFR Calculation mL/min/1.73m2 (Non-) (test code = 1930055625) eGFR Calculation mL/min/1.73m2 () (test code = 4614379877) MADALYN (test code = MADALYN) Association of [...] tests). Lab Interpretation Abnormal (test code = 57333-6) [facility]ress[facility]atic Function Panel (ALB, T.PRO, BILI T, BU/BC, ALT, AST, ALK PHOS)2020-08-19 13:21:12 Test Item Value Reference Range Interpretation Comments TOTAL BILI (test code = 9905066973) 1.9 mg/dL 0.1-1.1 H BILI UNCON (test code = 5587250844) 1.7 mg/dL 0.1-1.1 H BILI CONJ (test code = 9687903389) 0.0 mg/dL 0.0-0.3 T PROTEIN (test code = 1540132970) 6.3 g/dL 6.3-8.2 ALBUMIN (test code = 8477960582) 3.0 g/dL 3.5-5.0 L ALK PHOS (test code = 1332827846) 162 U/L 34-122 H ALTv (test code = 1742-6) 25 U/L 5-50 AST(SGOT) (test code = 5966274947) 41 U/L 13-40 H Lab Interpretation (test code = Abnormal 17094-4) [facility] CypressLipase [id number] 13:21:12 Test Item Value Reference Range Interpretation Comments LIPASE (test code = 2269705862) 145 U/L 0-220 Lab Interpretation (test code = Normal 70947-7) [facility] CypressCBC with [id number] 13:17:56 Test Item Value Reference Range Interpretation Comments WBC (test code = See_Comment [Automated 3690-2) message] The sy stem which generated this result transmitted reference range : 4.20 - 10.70 10*3/?L. The reference range was not used to interpret this result as normal/abnormal . RBC (test code = See_Comment L [Automated 489-8) message] The sy stem which generated this [...] RDW-SD (test code = 48.3 fL 38.5-51.6 45118-6) RDW-CV (test code = 21.4 % 12.1-15.4 H 788-0) PLT (test code = See_Comment L [Automated 777-3) message] The sy stem which generated this result transmitted reference range : 150 - 328 10*3/ ?L. The reference r mela was not used to interpret this result as normal/abnormal . MPV (test code = Not Measure d 44652-0) IPF % (test code = 2.3 % 1.2-10.7 Platelet count 1342119457) measured by fluorescence method. NRBC/100 WBC (test See_Comment [Automat ed code = 7284102341) message] The system which generated this result transmitted reference range : 0.0 - 10.0 /100 WBCs. The refer ence range was not u sed to interpret th is result as normal/abnormal . NRBC x10^3 (test code <0.01 See_Comment [Auto mated = 1641840760) message] The s ystem which generated this result transmitted reference range : 10*3/?L. The reference range was not used to interpret this result as normal/abnormal . GRAN MAT (NEUT) % 56.4 % (test code = 770-8) IMM GRAN % (test code 0.20 % = 3214475343) LYMPH % (test code = 27.6 % 736-9) MONO % (test code = 10.7 % 5905-5) EOS % (test code = 3.7 % 713-8) BASO % (test code = 1.4 % 706-2) GRAN MAT x10^3(ANC) 2.47 10*3/uL 1.99-6.95 (test code = 8901983083) IMM GRAN x10^3 (test <0.03 0.00-0.06 code = 9092500296) LYMPH x10^3 (test code 1.21 10*3/uL 1.09-3.23 = 731-0) MONO x10^3 (test code 0.47 10*3/uL 0.36-1.02 = 742-7) EOS x10^3 (test code = 0.16 10*3/uL 0.06-0.53 711-2) BASO x10^3 (test code 0.06 10*3/uL 0.01-0.09 = 704-7) Lab Interpretation Abnormal (test code = 16119-5) [facility] CypressPROTHROMBIN TIME / [id number] 01:49:00 Test Item Value Reference Range Interpretation Comments PROTIME PATIENT (test See_Comment H [Auto mated message] code = 5964-2) The system [employer] generated this result transmitted ref erence range: 12.0 - 1 4.7 Seconds. The reference range was not used to int erpret this result as normal/abnormal . INR (test code = 6301-6) Nor mal INR <1.1; Warfarin Therap eutic range 2.0 to 3. 0 or 2.5 to 3.5, dep ending upon the indica tions. Lab Interpretation (test Abnormal code = 84392-9) [facility] CypressMAGNESIUM2021-01-29 01:27:00 Test Item Value Reference Range Interpretation Comments MAGNESIUM (test code = 1235237808) 1.6 mg/dL 1.7-2.4 L Lab Interpretation (test code = Abnormal 84724-8) [facility] CypressAMMONIA, [id number] 01:26:00 Test Item Value Reference Range Interpretation Comments AMMONIA (test code = 9687914975) 37 umol/L 9-33 H Lab Interpretation (test code = Abnormal 32106-2) [facility] CypressUrinalysis2021-01-29 00:30:00 Test Item Value Reference Range Interpretation Comments APPEARANCE (test code = Clear Clear 8396098600) COLOR (test code = Addison Yellow A 0060356176) PH (test code = 4.8-8.0 9103543933) SP GRAVITY (test code = 1.003-1.030 0857786426) GLU U QUAL (test code = Normal Normal 4380972263) BLOOD (test code = Negative Negative INTERFERE NCE FROM 6208087604) ASCORBIC ACID M AY CAUSE FALSE NEG ATIVE RESULT KETONES (test code = Negative Negative 1236535641) PROTEIN (test code = Negative Negative 2887-8) UROBILIN (test code = 4.0 mg/dL Normal A 8251696610) BILIRUBIN (test code = Negative Negative 0017550908) NITRITE (test code = Negative Negative 7011721492) LEUK KIKI (test code = Negative Negative 8681501724) RBC/HPF (test code = See_Comment [Autom ated message] 7370601120) The system [employer] generated this result transmitted ref erence range: 0 - 3 HP F. The reference range was not used to int erpret this result as normal/abnormal . WBC/HPF (test code = See_Comment [Autom ated message] 4176100290) The system [employer] generated this result transmitted ref erence range: 0 - 5 HP F. The reference range was not used to int erpret this result as normal/abnormal . BACTERIA (test code = Negative Negative 0956591552) MUCOUS (test code = Slight Negative LPF A 4611679852) SQ EPITH (test code = HPF 9446739345) CA OXALATE (test code = See_Comment [Au tomated message] 0078203959) The system [employer] generated this result transmitted ref erence range: <=1 HPF. The reference range was not used to int erpret this result as normal/abnormal . TRANS EPI (test code = <1 See_Comment [Aut omated message] 7884167948) The system [employer] generated this result transmitted ref erence range: <=1 HPF. The reference range was not used to int erpret this result as normal/abnormal . Lab Interpretation Abnormal (test code = 89954-5) [facility] 1 [id number] 00:22:38Elevation of the right hemidiaphragm of moderate [...] CSTCHEST SINGLE VIEWHISTORY: SOB ORDERING PHYSICIAN: [place] NELSONIQUE: Frontal view of chestCOMPARISON: None available.FINDINGS:The cardiac silhouette is mildly enlargedThere is elevation of the right hemidiaphragm. There are moderate patchyopacities in the right lung base. No large pleural effusion. Nopneumothorax.No acute osseous abnormality. IMPRESSIONElevationof the right hemidiaphragm of moderate patchy opacities in theright lung base which may be due to atelectasis or pneumonia.RL: [id number] End of report [facility]edu[facility] [id number] 00:18:00 Test Item Value Reference Range Interpretation Comments TROPONIN I (test <0.012 See_Comment [Automated code = 1874002238) message] The system which generated this result [...] ? Lab Interpretation Normal (test code = 83778-3) [facility]ressN-TERMINAL [id number] 00:15:00 Test Item Value Reference Range Interpretation Comments NT-proBNP (test code 175 pg/mL See_Comment H [Autom ated = 1236497923) message] The system which generated this result transmitted reference range : <=125. The reference range was not used to interpret this result as normal/abnormal . MADALYN (test code = MADALYN) Biotin has been reported to cause a negative bias, interpret results relative to patient's use of biotin. Lab Interpretation Abnormal (test code = 56726-3) [facility]ressCOVID-19 (ID NOW RAPID TESTING)2020-06-26 00:08:00 Test Item Value Reference Range Interpretation Comments SARS-CoV-2 Rapid ID NOW Not Detected Not Detected (test code = 17583-4) MADALYN (test code = MADALYN) ID NOW COVID-19 Assay is an isothermal nucleic acid amplification test intended for the qualitative detection of nucleic acid from SARS-CoV-2 viral RNA in nasopharyngeal (PRICE LISTER) specimens. It is used under Emergency Use [...] indicated. Lab Interpretation Normal (test code = 96831-6) [facility] Metabolic Panel (NA, K, CL, CO2, GLUCOSE, BUN, CREATININE, CA)2020-06-26 00:06:00 Test Item Value Reference Range Interpretation Comments NA (test code = 137 mmol/L 135-145 2643262338) K (test code = 3.4 mmol/L 3.5-5 L 6571383670) CL (test code = 104 mmol/L 98-108 5465620593) CO2 TOTAL (test code = 26 mmol/L 23-31 0025657913) AGAP (test code = 2-16 5005041586) BUN (test code = 6 mg/dL 7-23 L 0550095297) GLUCOSE (test code = 118 mg/dL 70-110 H 6647711391) CREATININE (test code = 0.60 mg/dL 0.6-1.25 1235649559) CALCIUM (test code = 7.9 mg/dL 8.6-10.6 L 1824732876) eGFR Calculation mL/min/1.73m2 (Non-) (test code = 7585692513) eGFR Calculation mL/min/1.73m2 () (test code = 6964480919) MADALYN (test code = MADALYN) Association of [...] tests). Lab Interpretation Abnormal (test code = 19841-7) [facility] CypressHepatic Function Panel (ALB, T.PRO, BILI T, BU/BC, ALT, AST, ALK PHOS)2020-06-26 00:06:00 Test Item Value Reference Range Interpretation Comments TOTAL BILI (test code = 9262037097) 2.2 mg/dL 0.1-1.1 H BILI UNCON (test code = 7044482628) 1.8 mg/dL 0.1-1.1 H BILI CONJ (test code = 6962049708) 0.0 mg/dL 0-0.3 T PROTEIN (test code = 5808397002) 6.8 g/dL 6.3-8.2 ALBUMIN (test code = 4623035482) 3.1 g/dL 3.5-5 L ALK PHOS (test code = 1879696268) 162 U/L 34-122 H ALTv (test code = 1742-6) 22 U/L 5-50 AST(SGOT) (test code = 8975351663) 42 U/L 13-40 H Lab Interpretation (test code = Abnormal 54835-8) [facility] CypressLipase [id number] 00:06:00 Test Item Value Reference Range Interpretation Comments LIPASE (test code = 8190263015) 156 U/L 0-220 Lab Interpretation (test code = Normal 02118-0) [facility] CypressCBC with [id number] 00:00:00 Test Item Value Reference Range Interpretation Comments WBC (test code = See_Comment [Automated 0090-2) message] The sy stem which generated this result transmitted reference range : 4.20 - 10.70 10*3/?L. The reference range was not used to interpret this result as normal/abnormal . RBC (test code = See_Comment L [Automated 619-8) message] The sy stem which generated this [...] RDW-SD (test code = 49.4 fL 38.5-51.6 16441-2) RDW-CV (test code = 21.6 % 12.1-15.4 H 788-0) PLT (test code = See_Comment L [Automated 777-3) message] The sy stem which generated this result transmitted reference range : 150 - 328 10*3/ ?L. The reference r mela was not used to interpret this result as normal/abnormal . MPV (test code = Not Measure d 95065-9) IPF % (test code = 1.9 % 1.2-10.7 Platelet count 5783834997) measured by fluorescence method. NRBC/100 WBC (test See_Comment [Automat ed code = 1501070355) message] The system which generated this result transmitted reference range : 0.0 - 10.0 /100 WBCs. The refer ence range was not u sed to interpret th is result as normal/abnormal . NRBC x10^3 (test code <0.01 See_Comment [Auto mated = 9693656748) message] The s ystem which generated this result transmitted reference range : 10*3/?L. The reference range was not used to interpret this result as normal/abnormal . GRAN MAT (NEUT) % 44.8 % (test code = 770-8) IMM GRAN % (test code 0.20 % = 0234702235) LYMPH % (test code = 37.2 % 736-9) MONO % (test code = 13.6 % 5905-5) EOS % (test code = 2.7 % 713-8) BASO % (test code = 1.5 % 706-2) GRAN MAT x10^3(ANC) 2.47 10*3/uL 1.99-6.95 (test code = 0750257069) IMM GRAN x10^3 (test <0.03 0-0.06 code = 4940404860) LYMPH x10^3 (test code 2.05 10*3/uL 1.09-3.23 = 731-0) MONO x10^3 (test code 0.75 10*3/uL 0.36-1.02 = 742-7) EOS x10^3 (test code = 0.15 10*3/uL 0.06-0.53 711-2) BASO x10^3 (test code 0.08 10*3/uL 0.01-0.09 = 704-7) Lab Interpretation Abnormal (test code = 66713-7) [facility]ressMISCELLANEOUS LAB [id number] 12:02:00 Test Item Value Reference Range Interpretation Comments SCAN RESULT (test code = 2522876) SARS-COV2/RT-PCR ([facility])2020-03-13 20:20:00 Test Item Value Reference Range Interpretation Comments SARS-COV2/RT-PCR (test Negative Not Detected, Negative, code = 9183149) See external report for linked test SARS-COV-2 PERFORMING LAB [facility] (test code = 5832695) Negative result for this test determines that [...] 564(g) of the Act.Fact Sheet for Healthcare Providers:https://www.Twenty[employer].com/sites/default/files/product/documents/Fact_Shee o_TQ_Wpppcpveb_Xsin_DUJV-BwN-3.pdfFact Sheet for Healthcare Patients:https://www.[employer].com/sites/default/files/product/ documents/Sjrt_Hjuoq_Rjqruwfd_Lxjp_ENZY-GuL-1.pdfPerforming Laboratory:[facility], [place] [address]AO, ABDOMEN, WITH 2020-03-13 14:43:00REFERRING : ANIL SALVADOR Include Abdominal VesselsUnlisted Reason for Exam - Click Yes and EnterReason Below- >YesUnlisted Reason for Exam->listed for liver transplant, [facility] : 1955 Sex: [...] mass.3. Trace ascites. Signed: Brenda De Dios [facility] Verified Date/Time: 03/13/2020 14:43:24 ALPHA FETOPROTEIN (AFP), TUMOR [id number] 13:25:00 Test Item Value Reference Range Interpretation Comments ALPHA-FETOPROTEIN (BEAKER) (test code < ng/mL <10.0 = 1094) Television Specialist ID - AAHAMIDCOMPREHENSIVE METABOLIC [id number] 12:54:00 Test Item Value Reference Range Interpretation [...] S NOT APPLICABLE FOR DIALYSIS PATIEN TS. Television Specialist ID - AAHAMIDRAD, BONE DENSITY [id number] 12:46:00REFERRING MD: ANIL SALVADOR Reason for Exam:->on liver transplant waiting list [facility] CENTERName: KALEN GRIGGSIS : 1955 Sex: MFINAL REPORT Bone density study, 03/13/2020 Clinical History: Screening Bone mineral density measurementLumbar spine1.110 gm/cx0Snkclnq neck0.918 gm/cm2 Standard deviation from young adult [...] MDReport Verified Date/Time: 03/13/2020 12:46:53 Reading Location: [address] Mammo Reading Room BILIRUBIN, [id number] 12:38:00 Test Item Value Reference Range Interpretation Comments BILIRUBIN DIRECT (BEAKER) (test 1.0 mg/dL 0.1-0.5 H code = 706) Television Specialist ID - AAHAMIDPROTHROMBIN TIME/[id number] 12:23:00 Test Item Value Reference Range Interpretation [...] mechanical heart valves.CBC W/PLT COUNT & AUTO [id number] 12:16:00 Test Item Value Reference Range Interpretation [...] PERCENT (BEAKER) (test code = 2801) BLOOD [id number] 20:00:00 Test Item Value Reference Range Interpretation Comments CULTURE (BEAKER) (test No growth in 5 days code = 1095) BLOOD [id number] 20:00:00 Test Item Value Reference Range Interpretation Comments CULTURE (BEAKER) (test No growth in 5 days code = 1095) POCT-GLUCOSE [id number] 07:47:00 Test Item Value Reference Range Interpretation Comments POC-GLUCOSE METER 121 mg/dL 70-110 H : TESTED A T [facility] 6720 (BEAKER) (test code = [facility], 153) 83388: Television Specialist/Techni zaire ID = [id number] for RADHA GARVEY HEPATIC FUNCTION [id number] 07:24:00 Test Item Value Reference Range Interpretation [...] (test code = 25 U/L 6-55 347) Television Specialist ID - PIAYA LSpecimekaz slightly ictericPOCT-GLUCOSE [id number] 22:18:00 Test Item Value Reference Range Interpretation Comments POC-GLUCOSE METER 143 mg/dL 70-110 H : TESTED A T [facility] 67[address] (BEAKER) (test code = [facility], 153) 77227: Television Specialist/Techni zaire ID = [id number] for CA RBAJAL, ANU POCT-GLUCOSE [id number] 17:24:00 Test Item Value Reference Range Interpretation Comments POC-GLUCOSE METER 214 mg/dL 70-110 H : TESTED A T [facility] 6720 (BEAKER) (test code = [facility], 1538) 45051: Television Specialist/Techni zaire ID = [id number] for SA NTOS, WADE POCT-GLUCOSE [id number] 13:32:00 Test Item Value Reference Range Interpretation Comments POC-GLUCOSE METER 127 mg/dL 70-110 H : TESTED A T [facility] 6720 (BEAKER) (test code = [facility], 1538) 79486: Television Specialist/Techni zaire ID = [id number] for WADE MCMULLEN POCT-GLUCOSE [id number] 12:08:00 Test Item Value Reference Range Interpretation Comments POC-GLUCOSE METER 124 mg/dL 70-110 H : TESTED A T [facility] 67[address] (BEAKER) (test code = [facility], 1538) 17864: Television Specialist/Techni zaire ID = [id number] for CHARI RAZO POCT-GLUCOSE [id number] 08:16:00 Test Item Value Reference Range Interpretation Comments POC-GLUCOSE METER 117 mg/dL 70-110 H : TESTED A T [facility] 67[address] (BEAKER) (test code = [facility], 1538) 80107: Television Specialist/Techni zaire ID = [id number] for WADE MCMULLEN BASIC METABOLIC [id number] 06:13:00 Test Item Value Reference Range Interpretation [...] S NOT APPLICABLE FOR DIALYSIS PATIEN TS. Television Specialist ID - PIAYA LSpecimen slightly ictericHEPATIC FUNCTION [id number] 06:13:00 Test Item Value Reference Range Interpretation [...] (test code = 27 U/L 6-55 347) Television Specialist ID - KRISHNA Mcintyreimen slightly ictericPROTHROMBIN TIME/[id number] 05:46:00 Test Item Value Reference Range Interpretation [...] mechanical heart valves.CBC W/PLT COUNT & AUTO [id number] 05:21:00 Test Item Value Reference Range Interpretation [...] PERCENT (BEAKER) (test code = 2801) POCT-GLUCOSE [id number] 22:38:00 Test Item Value Reference Range Interpretation Comments POC-GLUCOSE METER 181 mg/dL 70-110 H : TESTED A T [facility] 6720 (BEAKER) (test code = [place], 1538) [address]: Television Specialist/Techni zaire ID = [id number] for CAREY LINARES RON (CELLAVISION MANUAL DIFF)2019-12-28 [...] CONCENTRATION Decreased (CELLAVISION)(BEAKER) (test code = 3438) Television Specialist ID - Nima Villafuerte comments: Slide comments:CBC W/PLT COUNT & AUTO [id number] 15:11:00 Test Item Value Reference Range Interpretation [...] PERCENT (BEAKER) (test code = 2801) POCT-GLUCOSE [id number] 10:15:00 Test Item Value Reference Range Interpretation Comments POC-GLUCOSE METER 178 mg/dL 70-110 H : TESTED A T [facility] 6720 (BEAKER) (test code = [facility], 1538) 80098: Television Specialist/Techni zaire ID = [id number] for DELPHINE JUAREZ POCT-GLUCOSE [id number] 09:08:00 Test Item Value Reference Range Interpretation Comments POC-GLUCOSE METER 167 mg/dL 70-110 H : TESTED A T [facility] 6720 (BEAKER) (test code = [facility] [employer] [facility], 1538) 65956: Television Specialist/Techni zaire ID = [id number] for SAMIRA COWAN BASIC METABOLIC [id number] 07:06:00 Test Item Value Reference Range Interpretation [...] S NOT APPLICABLE FOR DIALYSIS PATIEN TS. Television Specialist ID - KRISHNA ZAVALETApecimen slightly ictericHEPATIC FUNCTION [id number] 07:06:00 Test Item Value Reference Range Interpretation [...] (test code = 20 U/L 6-55 347) Television Specialist ID - KRISHNA ZAVALETAkevinkaz slightly ictericPOCT-GLUCOSE [id number] 22:05:00 Test Item Value Reference Range Interpretation Comments POC-GLUCOSE METER 216 mg/dL 70-110 H : TESTED A T [facility] 6720 (BEAKER) (test code = [facility], 1538) 25325: Television Specialist/Techni zaire ID = [id number] for CH DAVID ROJAS POCT-GLUCOSE [id number] 17:07:00 Test Item Value Reference Range Interpretation Comments POC-GLUCOSE METER 244 mg/dL 70-110 H : TESTED A T [facility] 6720 (BEAKER) (test code = [facility], 1538) 42308: Television Specialist/Techni zaire ID = [id number] for IB RAHIM, SERKALEM CBC W/PLT COUNT & AUTO [id number] 12:15:00 Test Item Value Reference Range Interpretation [...] PERCENT (BEAKER) (test code = 2801) POCT-GLUCOSE [id number] 11:54:00 Test Item Value Reference Range Interpretation Comments POC-GLUCOSE METER 226 mg/dL 70-110 H : TESTED A T [facility] 6720 (BEAKER) (test code = [facility], 1538) 14663: Television Specialist/Techni zaire ID = [id number] for IB DIDI, ANUSHALEM BASIC METABOLIC [id number] 08:18:00 Test Item Value Reference Range Interpretation [...] S NOT APPLICABLE FOR DIALYSIS PATIEN TS. Television Specialist ID - NTPPOCT-GLUCOSE [id number] 08:07:00 Test Item Value Reference Range Interpretation Comments POC-GLUCOSE METER 166 mg/dL 70-110 H : TESTED A T [facility] 6720 (BEAKER) (test code = [facility], 1538) 84984: Television Specialist/Techni zaire ID = [id number] for IB JEBM, ANUSHALEM HEPATIC FUNCTION [id number] 05:05:00 Test Item Value Reference Range Interpretation [...] (test code = 19 U/L 6-55 347) Television Specialist ID - Dennis yogi trentonericPOCT-GLUCOSE [id number] 17:47:00 Test Item Value Reference Range Interpretation Comments POC-GLUCOSE METER 222 mg/dL 70-110 H : TESTED A T [facility] 6720 (BEAKER) (test code = [facility], 1538) 36430: Television Specialist/Techni zaire ID = [id number] for BRAXTON MORAN POCT-GLUCOSE [id number] 12:25:00 Test Item Value Reference Range Interpretation Comments POC-GLUCOSE METER 311 mg/dL 70-110 H : TESTED A T [facility] 6720 (BEAKER) (test code = [facility], 1538) 58404: Television Specialist/Techni zaire ID = [id number] for BRAXTON MORAN POCT-GLUCOSE [id number] 07:49:00 Test Item Value Reference Range Interpretation Comments POC-GLUCOSE METER 190 mg/dL 70-110 H : TESTED A T [facility] 6720 (BEAKER) (test code = [facility], 1538) 87711: Television Specialist/Techni zaire ID = [id number] for BRAXTON MORAN VITAMIN B12 AND [id number] 06:11:00 Test Item Value Reference Range Interpretation Comments VITAMIN B12 (BEAKER) (test code = 873 pg/mL 213-816 H 774) FOLATE (BEAKER) (test code = 362) 12.30 ng/mL >=7.00 Television Specialist ID - EDASIBASIC METABOLIC [id number] 05:21:00 Test Item Value Reference Range Interpretation [...] S NOT APPLICABLE FOR DIALYSIS PATIEN TS. Television Specialist ID - EDASIHEPATIC FUNCTION [id number] 05:21:00 Test Item Value Reference Range Interpretation [...] (test code = 19 U/L 6-55 347) Television Specialist ID - EDASICBC W/PLT COUNT & AUTO [id number] 05:12:00 Test Item Value Reference Range Interpretation [...] PERCENT (BEAKER) (test code = 2801) PROTHROMBIN [id number] 04:56:00 Test Item Value Reference Range Interpretation [...] is2.5-3.5 for patients wiht mechanical heart valves.POCT-GLUCOSE [id number] 22:11:00 Test Item Value Reference Range Interpretation Comments POC-GLUCOSE METER 195 mg/dL 70-110 H : TESTED A T [facility] 6720 (BEAKER) (test code = [place], 1538) 6[address]: Television Specialist/Techni zaire ID = [id number] for SAMIRA COWAN HEMOGLOBIN AND [id number] 16:15:00 Test Item Value Reference Range Interpretation Comments HEMOGLOBIN (BEAKER) (test code = 8.6 GM/DL 13.7-17.5 L 410) HEMATOCRIT (BEAKER) (test code = 30.2 % 40.1-51.0 L 411) Television Specialist ID - [id number] 13:02:00 Test Item Value Reference Range Interpretation Comments FERRITIN (BEAKER) (test code = 73.10 ng/mL 5.00-275.00 361) Television Specialist ID - EDASIIRON, TIBC, % SAT. (WITHOUT FERRITIN)2019-12-25 12:42:00 Test Item Value Reference Range Interpretation Comments IRON (BEAKER) (test code = 547) 29.0 ug/dL 40.0-160.0 L TOTAL IRON BINDING CAPACITY 151 ug/dL 250-450 L (BEAKER) (test code = 769) IRON % SATURATION (2) (BEAKER) 19 % 20-55 L (test code = 2590) Television Specialist ID - EDASICOMPREHENSIVE METABOLIC [id number] 06:44:00 Test Item Value Reference Range Interpretation [...] S NOT APPLICABLE FOR DIALYSIS PATIEN TS. Television Specialist ID - EDASICBC W/PLT COUNT & AUTO [id number] 05:55:00 Test Item Value Reference Range Interpretation [...] PERCENT (BEAKER) (test code = 2801) POCT-GLUCOSE [id number] 23:39:00 Test Item Value Reference Range Interpretation Comments POC-GLUCOSE METER 307 mg/dL 70-110 H : TESTED A T [facility] 6720 (BEAKER) (test code = [place], 1538) 14568: Television Specialist/Techni zaire ID = [id number] for Colt rojas Erendira (contrac t) RAD, CHEST, 1 VIEW, NON [id number] 18:52:00REFERRING : ANIL SALVADOR Reason for exam:->sobShould [...] MDReport Verified Date/Time: 12/24/2019 18:52:34 Reading Location: [address] Consult Reading Room [facility] METABOLIC PANEL 2019-06-04 09:29:00 Test Item Value [...] Specimen slightly ictericCBC W/PLT COUNT & AUTO [id number] 08:54:00 Test Item Value Reference Range Interpretation [...] (BEAKER) (test code = 2801) HEPATITIS C [id number] 12:25:00 Test Item Value Reference Range Interpretation Comments HEPATITIS C ANTIBODY (BEAKER) (test Reactive Nonreactive A code = 367) ALPHA FETOPROTEIN (AFP), TUMOR [id number] 15:45:00 Test Item Value Reference Range Interpretation Comments ALPHA-FETOPROTEIN (BEAKER) (test 2.7 ng/mL <10.0 code = 1094) BASIC METABOLIC [id number] 15:36:00 Test Item Value Reference Range Interpretation [...] DIALYSIS PATIEN TS. Specimen slightly ictericHEPATIC FUNCTION [id number] 15:35:00 Test Item Value Reference Range Interpretation [...] 21 U/L 6-55 347) Specimen slightly ictericPROTHROMBIN [id number] 15:00:00 Test Item Value Reference Range Interpretation [...] mechanical heart valves.CBC W/PLT COUNT & AUTO [id number] 14:53:00 Test Item Value Reference Range Interpretation [...] code = 2801) ALPHA FETOPROTEIN (AFP), TUMOR [id number] 14:10:00 Test Item Value Reference Range Interpretation Comments ALPHA-FETOPROTEIN (BEAKER) (test 2.7 ng/mL <10.0 code = 1094) BASIC METABOLIC [id number] 13:52:00 Test Item Value Reference Range Interpretation [...] DIALYSIS PATIEN TS. Specimen slightly ictericHEPATIC FUNCTION [id number] 13:52:00 Test Item Value Reference Range Interpretation [...] 24 U/L 6-55 347) Specimen slightly ictericPROTHROMBIN [id number] 13:49:00 Test Item Value Reference Range Interpretation [...] mechanical heart valves.CBC W/PLT COUNT & AUTO [id number] 13:35:00 Test Item Value Reference Range Interpretation [...] (test code = 2801) POCT HEMOGLOBIN A1C [id number] 21:30:00 Test Item Value Reference Range Interpretation Comments POCT HBA1C (test code = 4548-4) 7.4 % 4-6 A Lab Interpretation (test code = Abnormal 95459-4) [facility] [id number] 21:30:00 Test Item Value Reference Range Interpretation Comments POCT HBA1C (test code = 4548-4) 7.4 % 4-6 A Lab Interpretation (test code = Abnormal 42378-1) [id number] 14:59:00 Test Item Value Reference Range Interpretation Comments T4 TOTAL (BEAKER) (test code = 895) 5.7 ug/dL 4.9-11.7 [id number] 13:20:00 Test Item Value Reference Range Interpretation Comments T3 TOTAL (BEAKER) (test code = 656) 113 ng/dL 48-159 CYTOMEGALOVIRUS ANTIBODY, [id number] 11:11:00 Test Item Value Reference Range Interpretation Comments CYTOMEGALOVIRUS, IGG (BEAKER) Positive Negative, Equivocal A (test code = 3429) CMV IgG Result Interpretation: </= 0.8 Al Negative 0.9-1.0 Al Equivocal >/=1.1 Al PositiveCYTOMEGALOVIRUS ANTIBODY, [id number] 11:11:00 Test Item Value Reference Range Interpretation Comments CYTOMEGALOVIRUS IGM ANTIBODY Negative Negative, Equivocal (BEAKER) (test code = 3437) CMV IgM Result Interpretation: </= 0.8 Al Negative 0.9-1.0 Al Equivocal >/= 1.1 Al PositiveEBV ANTIBODY, [id number] 11:08:00 Test Item Value Reference Range Interpretation [...] Equivocal >/= 1.1 Al PositiveVARICELLA ZOSTER ANTIBODY, [id number] 11:08:00 Test Item Value Reference Range Interpretation Comments VARICELLA ZOSTER IGG (AL) (BEAKER) > (test code = 3197) VARICELLA ZOSTER RESULT INTERPRETATIONS: <=0.8 Al Nonreactive: Presumed non-immune to VZV 0.9-1.0 Al Equivocal >=1.1 Al Reactive: Presumed immune to [id number] 13:11:00 Test Item Value Reference Range Interpretation Comments ALPHA-1 ANTITRYPSIN (BEAKER) 155.30 mg/dL 90.00-200.00 (test code = 502) HEMOGLOBIN [id number] 13:08:00 Test Item Value Reference Range Interpretation Comments HEMOGLOBIN A1C (BEAKER) (test code = 6.4 % 4.3-6.1 H 368) HEPATITIS A ANTIBODY, [id number] 12:51:00 Test Item Value Reference Range Interpretation Comments HEPATITIS A IGG ANTIBODY (BEAKER) Reactive Nonreactive A (test code = 2797) HEPATITIS C [id number] 12:51:00 Test Item Value Reference Range Interpretation Comments HEPATITIS C ANTIBODY (BEAKER) (test Reactive Nonreactive A code = 367) [id number] 12:48:00 Test Item Value Reference Range Interpretation Comments PROSTATE SPECIFIC ANTIGEN (BEAKER) 0.4 ng/mL 0.0-4.0 (test code = 844) HIV-1 ANTIGEN WITH HIV-1/2 [id number] 12:48:00 Test Item Value Reference Range Interpretation Comments HIV-1 ANTIGEN WITH HIV 1\\T\\2 Nonreactive Nonreactive ANTIBODY (2) (BEAKER) (test code = 2586) VITAMIN D, [id number] 12:46:00 Test Item Value Reference Range Interpretation Comments VITAMIN D 25-OH (BEAKER) (test code 7.7 ng/mL 6.6-49.9 = 2764) Effective 03/08/2017: Reference Range ChangeNew: 6.6-49.9 ng/mL Previous: 13.0-47.8 ng/mLRecommended Vitamin D Target Range: 30.0-40.0 ng/mLURINALYSIS W/ [id number] 11:55:00 Test Item Value Reference Range Interpretation [...] /LPF SOURCE(BEAKER) (test code = 2795) CRYPTOCOCCAL [id number] 11:10:00 Test Item Value Reference Range Interpretation Comments CRYPTOCOCCAL ANTIGEN, SERUM Negative Negative, Interference (BEAKER) (test code = 1828) [id number] 10:59:00 Test Item Value Reference Range Interpretation Comments THYROID STIMULATING HORMONE 2.10 uIU/mL 0.35-4.94 (BEAKER) (test code = 772) [id number] 10:59:00 Test Item Value Reference Range Interpretation Comments FERRITIN (BEAKER) (test code = 361) 69 ng/mL 5-275 [id number] 10:51:00 Test Item Value Reference Range Interpretation Comments RPR SCREEN (BEAKER) (test code = Nonreactive Nonreactive 420) [id number] 10:49:00 Test Item Value Reference Range Interpretation Comments TRANSFERRIN (BEAKER) (test code = 197 mg/dL 174-382 541) Specimen slightly [id number] 10:45:00 Test Item Value Reference Range Interpretation Comments MAGNESIUM (BEAKER) (test code = 1.5 mg/dL 1.6-2.6 L 627) [id number] 10:45:00 Test Item Value Reference Range Interpretation Comments PHOSPHORUS (BEAKER) (test code = 3.6 mg/dL 2.3-4.7 604) URIC [id number] 10:45:00 Test Item Value Reference Range Interpretation Comments URIC ACID (BEAKER) (test code = 4.8 mg/dL 2.6-7.2 773) Specimen slightly ictericCOMPREHENSIVE METABOLIC [id number] 10:45:00 Test Item Value Reference Range Interpretation [...] FOR DIALYSIS PATIEN TS. Specimen slightly ictericLIPID [id number] 10:45:00 Test Item Value Reference Range Interpretation [...] 160-189 Very High >=190 Specimen slightly ictericBILIRUBIN, [id number] 10:45:00 Test Item Value Reference Range Interpretation Comments BILIRUBIN DIRECT (BEAKER) (test 1.6 mg/dL 0.1-0.5 H code = 706) GAMMA GLUTAMYL TRANSFERASE (GGT)2018-12-20 10:45:00 Test Item Value Reference Range Interpretation Comments GAMMA GLUTAMYL TRANSFERASE (BEAKER) 33 U/L 9-64 (test code = 364) Specimen slightly [id number] 10:42:00 Test Item Value Reference Range Interpretation Comments PARTIAL THROMBOPLASTIN TIME 37.9 seconds 22.5-36.0 H (BEAKER) (test code = 760) PROTHROMBIN [id number] 10:36:00 Test Item Value Reference Range Interpretation [...] INR is2.5-3.5 for patients wiht mechanical heart valves.[id number] 10:36:00 Test Item Value Reference Range Interpretation Comments ETHANOL (BEAKER) (test code = 400) < mg/dL <=10 [id number] 10:36:00 Test Item Value Reference Range Interpretation Comments FIBRINOGEN LEVEL (BEAKER) (test 207 mg/dl 225-434 L code = 658) BLOOD GAS, [id number] 10:35:00 Test Item Value Reference Range Interpretation [...] 21.0 % CBC W/PLT COUNT & AUTO [id number] 10:25:00 Test Item Value Reference Range Interpretation [...] PERCENT (BEAKER) (test code = 2801) CALCIUM, [id number] 10:20:00 Test Item Value Reference Range Interpretation Comments CALCIUM IONIZED (BEAKER) (test 1.05 mmol/L 1.12-1.27 L code = 698) PH, BLOOD (BEAKER) (test code = 7.41 1810) RAD, MANDIBLE, MIN 4 [id number] 16:56:00REFERRING : ANIL SALVADOR Reason for Exam:->pretransplant liver evaluationFINAL REPORT TECHNIQUE: Minimum four views of the mandible. INDICATION: pretransplant liver evaluation. COMPARISON: None. FINDINGS:No fracture or dislocation.No periapical lucencies.Caries of a maxillary molar, side indeterminate.Mild degenerative disc changes at C4-C5, C5-C6, and C6-C7. IMPRESSION: No periapical lucency. Caries of a maxillary molar, side indeterminate. Signed:Tawanda Alvarez MDReport Verified Date/Time: 12/19/2018 16:56:31 Reading Location: [address] Radiology Reading Room RAD, CHEST, 2 [id number] 15:51:00REFERRING : ANIL SALVADOR Reason for Exam:->pretransplant [...] Walker Verified Date/Time: 12/19/2018 15:51:17 Reading Location: [facility] Mammo Reading Room MR, ABDOMEN, [id number] 14:51:00 REFERRING MD: ANIL FRANCISCO REPORT TECHNIQUE: [...] ascites, splenomegaly, and large esophageal varices. Signed: Horn, Tawanda MDReport Verified Date/Time: 12/19/2018 14:51:24 Reading Location: [address] Radiology Reading Room ETHANOL 2018-12-06 11:12:00 Test Item Value Reference Range Interpretation Comments ETHANOL (BEAKER) (test code = 400) < mg/dL <=10 BASIC METABOLIC [id number] 10:56:00 Test Item Value Reference Range Interpretation [...] DIALYSIS PATIEN TS. Specimen moderately ictericHEPATIC FUNCTION [id number] 10:56:00 Test Item Value Reference Range Interpretation [...] 27 U/L 6-55 347) Specimen moderately ictericPROTHROMBIN TIME/[id number] 10:40:00 Test Item Value Reference Range Interpretation [...] mechanical heart valves.CBC W/PLT COUNT & AUTO [id number] 10:38:00 Test Item Value Reference Range Interpretation [...] PERCENT (BEAKER) (test code = 2801) BLOOD [id number] 08:00:00 Test Item Value Reference Range Interpretation Comments CULTURE (BEAKER) (test No growth in 5 days code = 1095) BLOOD [id number] 08:00:00 Test Item Value Reference Range Interpretation Comments CULTURE (BEAKER) (test No growth in 5 days code = 1095) BODY FLUID CULTURE + GRAM [id number] 12:20:00 Test Item Value Reference Range Interpretation Comments CULTURE (BEAKER) (test code No growth = 1095) GRAM STAIN RESULT (BEAKER) 1+ WBCs (test code = 1123) GRAM STAIN RESULT (BEAKER) No organisms seen (test code = 70020) HEPATITIS C PCR, [id number] 08:32:00 Test Item Value Reference Range Interpretation Comments HCV RESULT COMPONENT HCV RNA not detected HCV RNA not detected (BEAKER) (test code = 2699) This test uses a Real-Time Polymerase Chain Reaction (RT-PCR) methodology and was performed using [employer] Ampliprep/KHOA TaqMan HCV test kit version 2.0 ([employer]).Reportable range for this assay is 15 - 100,000,000 IU per mL (1.18 - 8.00 Log IU/mL).POCT-GLUCOSE [id number] 08:09:00 Test Item Value Reference Range Interpretation Comments POC-GLUCOSE METER 117 mg/dL 70-110 H TESTED AT [facility] 6720 (BEAKER) (test code = [place] 1538) [address] CALCIUM, [id number] 05:54:00 Test Item Value Reference Range Interpretation Comments CALCIUM IONIZED (BEAKER) (test 1.01 mmol/L 1.12-1.27 L code = 698) PH, BLOOD (BEAKER) (test code = 7.45 1810) COMPREHENSIVE METABOLIC [id number] 05:07:00 Test Item Value Reference Range Interpretation [...] APPLICABLE FOR DIALYSIS PATIEN TS. Specimen slightly [id number] 05:06:00 Test Item Value Reference Range Interpretation Comments PHOSPHORUS (BEAKER) (test code = 3.3 mg/dL 2.3-4.7 604) [id number] 05:06:00 Test Item Value Reference Range Interpretation Comments MAGNESIUM (BEAKER) (test code = 1.5 mg/dL 1.6-2.6 L 627) CBC W/PLT COUNT & AUTO [id number] 04:43:00 Test Item Value Reference Range Interpretation [...] NEUTROPHILS ABSOLUTE COUNT 2.68 K/ L 1.78-5.38 ([facility]) (test code = 670) LYMPHOCYTES ABSOLUTE COUNT 2.03 K/ L 1.32-3.57 (AKER) (test code = 414) MONOCYTES ABSOLUTE COUNT (BEAKER) 0.71 K/ L 0.30-0.82 (test code = 415) EOSINOPHILS ABSOLUTE COUNT 0.23 K/ L 0.04-0.54 (AKER) (test code = 416) BASOPHILS ABSOLUTE COUNT (BEAKER) 0.03 K/ L 0.01-0.08 (test code = 417) IMMATURE GRANULOCYTES-RELATIVE 1 % 0-1 PERCENT ([facility]) (test code = 2801) POCT-GLUCOSE [id number] 21:35:00 Test Item Value Reference Range Interpretation Comments POC-GLUCOSE METER 154 mg/dL 70-110 H TESTED AT [place] [address] ([facility]) (test [facility] = [facility]a [facility] 1538) [address] POCT-GLUCOSE [id number] 17:21:00 Test Item Value Reference Range Interpretation Comments POC-GLUCOSE METER 138 mg/dL 70-110 H TESTED AT [place] [address] ([facility]) (test code = [facility] Juan J [facility] 1538) [address] POCT-GLUCOSE [id number] 13:27:00 Test Item Value Reference Range Interpretation Comments POC-GLUCOSE METER 166 mg/dL 70-110 H TESTED AT [place] [address] ([facility]) (test code = [facility] Juan J [facility] 1538) [address] CBC W/PLT COUNT & AUTO [id number] 12:00:00 Test Item Value Reference Range Interpretation Comments WHITE BLOOD CELL COUNT (AKER) 6.0 K/ L 3.5-10.5 (test code = 775) RED BLOOD CELL COUNT ([facility]) 2.79 M/ L 4.63-6.08 L (test code = 761) HEMOGLOBIN (BEAKER) (test code = 9.4 GM/DL 13.7-17.5 L 410) HEMATOCRIT ([facility]) (test code = 28.2 % 40.1-51.0 L 411) MEAN CORPUSCULAR VOLUME ([facility]) 101.1 fL 79.0-92.2 H (test [...] 3438) Received comment: User comments: Slide comments:POCT-GLUCOSE [id number] 11:52:00 Test Item Value Reference Range Interpretation Comments POC-GLUCOSE METER 180 mg/dL 70-110 H TESTED AT [facility] 6720 (BEAKER) (test code = NICOLE [place]rita [place] 1538) [address] POCT-GLUCOSE [id number] 08:09:00 Test Item Value Reference Range Interpretation Comments POC-GLUCOSE METER 115 mg/dL 70-110 H TESTED AT [facility] 6720 (BEAKER) (test code = NICOLE Arita [facility] 1538) [address] COMPREHENSIVE METABOLIC [id number] 05:59:00 Test Item Value Reference Range Interpretation [...] APPLICABLE FOR DIALYSIS PATIEN TS. Specimen slightly [id number] 05:57:00 Test Item Value Reference Range Interpretation Comments MAGNESIUM (BEAKER) (test code = 1.6 mg/dL 1.6-2.6 627) POCT-GLUCOSE [id number] 22:30:00 Test Item Value Reference Range Interpretation Comments POC-GLUCOSE METER 186 mg/dL 70-110 H TESTED AT [facility] 6720 ([place]) (test code = NICOLE [place]rita [place] 1538) [address] POCT-GLUCOSE [id number] 18:33:00 Test Item Value Reference Range Interpretation Comments POC-GLUCOSE METER 117 mg/dL 70-110 H TESTED AT [facility] 6720 [facility] (test code = NICOLE Arita [facility] 1538) [address] U/S, [id number] 17:34:00REFERRING MD: ANIL SALVADOR Please give 25g [...] 2% lidocaine anesthesia was administered. A 5 [place] catheter was advanced into the peritoneal cavity and 1300 cc of addison fluid was removed. The catheter was removed without immediate complication. Samples left with interstitial sent to the lab for analysis. IMPRESSION:Uncomplicated ultrasound-guided paracentesis with 1300 cc fluid removed. Signed: Mauricio Cullen MDReport Verified Date/Time: 10/29/2018 17:34:00 Reading Location: [address] Ultrasound Reading Room VANCOMYCIN LEVEL, TROUGH 2018-10-29 17:22:00 Test Item Value Reference Range Interpretation Comments VANCOMYCIN TROUGH (BEAKER) (test 7.3 ug/mL 10.0-20.0 L code = 522) CBC W/PLT COUNT & AUTO [id number] 15:00:00 Test Item Value Reference Range Interpretation [...] = 2801) BODY FLUID CELL COUNT WITH [id number] 13:45:00 Test Item Value Reference Range Interpretation [...] Tube (test code = 2873) RESPIRATORY PANEL [id number] 12:27:00 Test Item Value Reference Range Interpretation [...] decisions. This sample was tested at the [facility] using the [employer] Respiratory Panel. It is FDA cleared and has been verified and approved by the [facility] for clinical use on nasopharyngeal swab specimens.The performance of the FilmArrayRP has not been established in individuals who received influenza vaccine. Recent administration ofa nasal influenza vaccine may cause false positive results for Influenza A and/orInfluenza B.POCT-GLUCOSE [id number] 12:16:00 Test Item Value Reference Range Interpretation Comments POC-GLUCOSE METER 196 mg/dL 70-110 H TESTED AT [facility] 6792 ([facility]) (test code = NICOLE TRUJILLO 1538) [address] RESPIRATORY PANEL [id number] 10:59:00 Test Item Value Reference Range Interpretation [...] decisions. This sample was tested at the [facility] Molecular Diagnostics Laboratory using the CurioosArray Respiratory Panel. It is FDA cleared and has been verified and approved by the [facility] Molecular Diagnostics Laboratory for clinical use on nasopharyngeal swab specimens.The performance of the FilmArrayRP has not been established in individuals who received influenza vaccine. Recent administration ofa nasal influenza vaccine may cause false positive results for Influenza A and/orInfluenza B.POCT-GLUCOSE [id number] 08:15:00 Test Item Value Reference Range Interpretation Comments POC-GLUCOSE METER 184 mg/dL 70-110 H TESTED AT [facility] 6720 (BEAKER) (test code = NICOLE ALAN [place] 1538) [address] CBC W/PLT COUNT & AUTO [id number] 07:49:00 Test Item Value Reference Range Interpretation [...] APPLICABLE FOR DIALYSIS PATIEN TS. Specimen moderately [id number] 04:31:00 Test Item Value Reference Range Interpretation Comments MAGNESIUM ([facility] (test code = 1.9 mg/dL 1.6-2.6 627) LACTIC ACID, [id number] 04:18:00 Test Item Value Reference Range Interpretation Comments LACTATE BLOOD VENOUS (2) ([facility]) 1.3 mmol/L 0.5-2.2 (test code = 2872) Specimen moderately ictericPOCT-GLUCOSE [id number] 18:00:00 Test Item Value Reference Range Interpretation Comments POC-GLUCOSE METER 121 mg/dL 70-110 H TESTED AT [place] [address] ([facility]) (test code = NICOLE Arita [facility] 1538) [address] [id number] 12:39:00 Test Item Value Reference Range Interpretation Comments PROCALCITONIN (AKER) (test code 4.50 ng/mL <0.05 H = 3036) SEPSIS RISK (ng/mL)Low: 0.05-0.50Intermediate: 0.51-2.00High: >=2.01POCT-GLUCOSE [id number] 12:20:00 Test Item Value Reference Range Interpretation Comments POC-GLUCOSE METER 148 mg/dL 70-110 H TESTED AT [facility] 6720 ([facility]) (test code = NICOLE Arita [facility] 1538) [address] LEGIONELLA ANTIGEN, [id number] 12:13:00 Test Item Value Reference Range Interpretation Comments L. PNEUMOPHILA Negative - see Negative fo r L. SEROGP 1 UR AG comment pneumophila (BEAKER) (test code serogrou p 1 antigen, = 1156) suggesting no r ecent or current infe ction with this serog roup. Legionellosis c annot be ruled out si nce other serogroup s and species may cau se disease. STREP PNEUMONIAE [id number] 12:13:00 Test Item Value Reference Range Interpretation [...] limit of the test. RAPID INFLUENZA A&B [id number] 12:11:00 Test Item Value Reference Range Interpretation Comments RAPID INFLUENZA A AG (BEAKER) Negative Negative, Inconclusive (test code = 1622) RAPID INFLUENZA B AG (BEAKER) Negative Negative, Inconclusive (test code = 1623) LACTIC ACID, [id number] 10:51:00 Test Item Value Reference Range Interpretation Comments LACTATE BLOOD VENOUS (2) (BEAKER) 3.0 mmol/L 0.5-2.2 H (test code = 2872) Specimen moderately ictericU/S, ABDOMINAL, [id number] 07:19:00REFERRING MD: ANIL SALVADOR Please perform with [...] MDReport Verified Date/Time: 10/28/2018 07:19:25 Reading Location: [address] Transitional Reading Room RAPID DRUG SCREEN, [id number] 07:07:00 Test Item Value Reference Range Interpretation [...] situations. Chain of custody not maintained. Some gaim-fcp-rjovozb medications, as well as adulterants, may cause inaccurate results. Clinical correlation should be applied. A more comprehensive drug screen or confirmation of a detected drug may be performed upon request.CT, BRAIN, WITHOUT [id number] 06:42:00REFERRING MD: ANIL LEROYTFINAL REPORT CT, BRAIN, [...] Verified Date/Time: 10/28/2018 06:42:47 VITAMIN B12 AND [id number] 06:21:00 Test Item Value Reference Range Interpretation Comments VITAMIN B12 (BEAKER) (test code = 719 pg/mL 213-810 574) FOLATE (BEAKER) (test code = 362) 13.7 ng/mL >=7.0 TROPONIN [id number] 06:05:00 Test Item Value Reference Range Interpretation [...] H (test code = 2590) COMPREHENSIVE METABOLIC [id number] 05:44:00 Test Item Value Reference Range Interpretation [...] APPLICABLE FOR DIALYSIS PATIEN TS. Specimen moderately [id number] 05:38:00 Test Item Value Reference Range Interpretation Comments MAGNESIUM (BEAKER) (test code = 2.3 mg/dL 1.6-2.6 627) LACTIC ACID, [id number] 05:32:00 Test Item Value Reference Range Interpretation Comments LACTATE BLOOD VENOUS 4.1 mmol/L 0.5-2.2 H Specime n slightly (2) (BEAKER) (test hemolyzed code = 2872) Specimen moderately ictericTROPONIN [id number] 02:28:00 Test Item Value Reference Range Interpretation [...] disease, and persistent tachyarrhythmia.RAD, ABDOMEN/KUB, 1 VIEW [id number] 02:04:00REFERRJB GOMEZ: ANIL SALVADOR Reason for exam:->NG tube [...] Navarrete MDReport Verified Date/Time: 10/28/2018 02:04:20 HROMBIN [id number] 01:58:00 Test Item Value Reference Range Interpretation [...] mechanical heart valves.CBC W/PLT COUNT & AUTO [id number] 01:45:00 Test Item Value Reference Range Interpretation [...] User comments: Slide comments:URINALYSIS W/ REFLEX URINE [id number] 01:36:00 Test Item Value Reference Range Interpretation [...] SOURCE(BEAKER) (test code = 2795) COMPREHENSIVE METABOLIC [id number] 01:16:00 Test Item Value Reference Range Interpretation [...] APPLICABLE FOR DIALYSIS PATIEN TS. Specimen moderately [id number] 01:15:00 Test Item Value Reference Range Interpretation Comments AMMONIA (BEAKER) (test code = 348) 69 mol/L 18-72 LACTIC ACID, [id number] 01:08:00 Test Item Value Reference Range Interpretation Comments LACTATE BLOOD VENOUS (2) (BEAKER) 3.2 mmol/L 0.5-2.2 H (test code = 2872) Specimen moderately [id number] 01:08:00 Test Item Value Reference Range Interpretation Comments MAGNESIUM (BEAKER) (test code = 1.1 mg/dL 1.6-2.6 L 627) RAD, CHEST, 1 VIEW, NON [id number] 00:52:00REFERRING MD: ANIL SALVADOR Reason for exam:->sepsisShould [...] MDReport Verified Date/Time: 10/28/2018 00:52:42 Reading Location: [address] Reading Room ACTIN (SMOOTH MUSCLE) ANTIBODY, [id number] 08:28:00 Test Item Value Reference Range Interpretation Comments SCAN RESULT (test code = 4828519) [id number] 08:27:00 Test Item Value Reference Range Interpretation Comments SCAN RESULT (test code = 5103915) NILS TITER AND [id number] 09:55:00 Test Item Value Reference Range Interpretation Comments NILS TITER (BEAKER) (test code = :160 1541) NILS PATTERN (BEAKER) (test code = Speckled 1781) ANTI-NUCLEAR ANTIBODY (NILS)2018-10-05 09:54:00 Test Item Value Reference Range Interpretation Comments ANTI-NUCLEAR ANTIBODY (NILS) (BEAKER) Positive Negative A (test code = 418) Test performed by IFA method.[id number] 10:54:00 Test Item Value Reference Range Interpretation Comments FERRITIN (BEAKER) (test code = 361) 218 ng/mL 5-275 HEPATITIS A ANTIBODY, [id number] 10:18:00 Test Item Value Reference Range Interpretation Comments HEPATITIS A IGG ANTIBODY (BEAKER) Reactive Nonreactive A (test code = 2797) ALPHA FETOPROTEIN (AFP), TUMOR [id number] 10:14:00 Test Item Value Reference Range Interpretation Comments ALPHA-FETOPROTEIN (BEAKER) (test 3.5 ng/mL <10.0 code = 1094) HEPATITIS A ANTIBODY, [id number] 10:14:00 Test Item Value Reference Range Interpretation Comments HEPATITIS A IGM ANTIBODY (BEAKER) Nonreactive Nonreactive (test code = 498) HEPATITIS B CORE ANTIBODY, [id number] 10:14:00 Test Item Value Reference Range Interpretation Comments HEPATITIS B CORE TOTAL ANTIBODY Nonreactive Nonreactive (BEAKER) (test code = 497) HEPATITIS B SURFACE [id number] 09:42:00 Test Item Value Reference Range Interpretation Comments HEPATITIS B SURFACE ANTIBODY < mIU/mL <8.0 (BEAKER) (test code = 647) HEPATITIS B SURFACE [id number] 09:36:00 Test Item Value Reference Range Interpretation [...] 41 % 20-55 (test code = 2590) [id number] 09:14:00 Test Item Value Reference Range Interpretation Comments ALPHA-1 ANTITRYPSIN (BEAKER) 159.30 mg/dL 90.00-200.00 (test code = 502) COMPREHENSIVE METABOLIC [id number] 09:10:00 Test Item Value Reference Range Interpretation [...] FOR DIALYSIS PATIEN TS. Specimen slightly ictericBILIRUBIN, [id number] 09:10:00 Test Item Value Reference Range Interpretation Comments BILIRUBIN DIRECT (BEAKER) (test 1.4 mg/dL 0.1-0.5 H code = 706) PROTHROMBIN [id number] 08:38:00 Test Item Value Reference Range Interpretation [...]
[2021-08-01] MEDS ORDERED: dexAMETHasone 10 MG/ML VIAL ONE (11:05)
[2021-08-01] MEDS ORDERED: HYDROCODONE/APAP 10/325 TAB ONE (11:05)
--- NOTE | 2021-08-01 11:08 | ER ---
Nurse's Notes [facility] Name: Tonny Vidal Age: 65 yrs Sex: Male : 1955 Arrival Date: 08/01/2021 Time: 10:39 Bed 15 Private MD: Diagnosis: Dental caries, unspecified Presentation: 08/01 10:45 Chief complaint: Patient states: Seen yesterday in ED for Left side facial vg1 swelling/toothache. States 'medication is not working, the pain is bad and I cant eat'. Coronavirus screen: Vaccine status: Patient reports receiving the 2nd dose of the covid vaccine. Client denies travel out of the [place] in the last 14 days. Ebola Screen: Patient negative for fever greater than or equal to 101.5 degrees Fahrenheit, and additional compatible Ebola Virus Disease symptoms. Initial Sepsis Screen: Does the patient meet any 2 criteria? No. Patient's initial sepsis screen is negative. Does the patient have a suspected source of infection? No. Patient's initial sepsis screen is negative. Risk Assessment: Do you want to hurt yourself or someone else? Patient reports no desire to harm self or others. Onset of symptoms was July 03, 2021. 10:45 Method Of Arrival: Ambulatory vg1 10:45 Acuity: FAIZA 4 vg1 Triage Assessment: 10:46 General: Appears in no apparent distress. uncomfortable, Behavior is calm, cooperative. vg1 Pain: Complains of pain in left jaw Pain currently is 9 out of 10 on a pain scale. EENT: Reports pain in left jaw. Historical: - Allergies: 10:46 Ativan; vg1 - PMHx: 10:46 ADD/ADHD; Cirrhosis; Diabetes - NIDDM; Hypertension; psoriasis; vg1 - Immunization history:: Client reports receiving the 2nd dose of the Covid vaccine. - Social history:: Smoking status: Patient/guardian denies using tobacco, the patient reports quitting approximately 3 years ago. - Family history:: not pertinent. - Hospitalizations: : No recent hospitalization is reported. Screenin:11 Abuse screen: Denies threats or abuse. Denies injuries from another. Nutritional ic1 screening: No deficits noted. Tuberculosis screening: No symptoms or risk factors identified. Fall Risk None identified. Assessment: 10:46 General: Appears in no apparent distress. uncomfortable, Behavior is calm, cooperative, ic1 appropriate for age, Reports L side wisdom tooth pain. States its getting worse and is painful to eat. Pain: Complains of pain in L side lower teeth. Neuro: Level of Consciousness is awake, alert, obeys commands, Oriented to person, place, time, situation. Cardiovascular: No deficits noted. Respiratory: No deficits noted. GI: No deficits noted. : No deficits noted. EENT: Reports tooth pain . Derm: No deficits noted. Musculoskeletal: No deficits noted. Vital Signs: 10:45 BP 127 / 71; Pulse 65; Resp 16; Pulse Ox 97% on R/A; Weight 92.08 kg; Height 5 ft. 6 vg1 in. (167.64 cm); Pain 9; 10:46 Temp 98.5(O); ic1 11:11 BP 123 / 67; Pulse 81; Resp 18; Pulse Ox 100% ; ic1 10:45 Body Mass Index 32.76 (92.08 kg, 167.64 cm) vg1 ED Course: 10:39 Patient arrived in ED. as 10:40 Irving Chacko MD is Attending Physician. rn 10:46 Anca Carroll RN is Primary Nurse. ic1 10:46 Triage completed. vg1 10:46 Arm band placed on. vg1 11:11 Patient has correct armband on for positive identification. Bed in low position. Call ic1 light in reach. Side rails up X2. 11:11 Patient did not have IV access during this emergency room visit. ic1 Administered Medications: 11:09 Drug: Decadron (dexamethasone) 10 mg Route: IM; Site: right deltoid; ic1 11:10 Drug: [place] (HYDROcodone-acetaminophen) 10 mg-325 mg 1 tabs Route: PO; ic1 Outcome: 11:08 Discharge ordered by . rn 11:10 Discharged to home ambulatory. ic1 11:10 Condition: stable 11:10 Discharge instructions given to patient, Instructed on discharge instructions, follow up and referral plans. Demonstrated understanding of instructions, follow-up care. 11:26 Patient left the ED. ic1 Signatures: Cheyenne Villela Roman, MD MD rn Garcia, Victoria, RN RN 1 Anca Carroll RN RN ic1
--- NOTE | 2021-08-01 11:09 | EDPHYS ---
Physician Documentation [facility] Name: Tonny Vidal Age: 65 yrs Sex: Male : 1955 Arrival Date: 08/01/2021 Time: 10:39 Bed 15 Private MD: ED Physician Irving Chacko HPI: 08/01 11:03 This 65 yrs old Male presents to ER via Ambulatory with complaints of rn Toothache, Facial Pain. 11:03 The patient presents with pain. The problem is located in the left mandibular teeth. rn Onset: The symptoms/episode began/occurred yesterday. Duration: The symptoms are continuous. Modifying factors: The symptoms are alleviated by nothing, the symptoms are aggravated by air, chewing, food. Associated signs and symptoms: Pertinent positives: pain, Pertinent negatives: fever, swelling. Severity of symptoms: At their worst the symptoms were moderate, in the emergency department the symptoms are unchanged. The patient has experienced a previous episode. The patient has been recently seen at the [facility] Emergency Department. Seen here yesterday for same, reports pain not improved. I saw him yesterday and had negative ct neck. No new swelling or trauma. Has not seen dentist. Came for pain medication.. Historical: - Allergies: 10:46 Ativan; vg1 - PMHx: 10:46 ADD/ADHD; Cirrhosis; Diabetes - NIDDM; Hypertension; psoriasis; vg1 - Immunization history:: Client reports receiving the 2nd dose of the Covid vaccine. - Social history:: Smoking status: Patient/guardian denies using tobacco, the patient reports quitting approximately 3 years ago. - Family history:: not pertinent. - Hospitalizations: : No recent hospitalization is reported. ROS: 11:03 Constitutional: Negative for fever, chills, and weight loss, ENT: + left lower dental rn pain Neck: Negative for injury, pain, and swelling, Neuro: Negative for headache, weakness, numbness, tingling, and seizure. Exam: 11:03 Constitutional: This is a well developed, well nourished patient who is awake, alert, rn and in no acute distress. Head/Face: Normocephalic, atraumatic. ENT: + poor dentition with tenderness along left gums, no abscess Neck: Trachea midline. Supple, full range of motion without nuchal rigidity, or vertebral point tenderness. No Meningismus. Vital Signs: 10:45 BP 127 / 71; Pulse 65; Resp 16; Pulse Ox 97% on R/A; Weight 92.08 kg; Height 5 ft. 6 vg1 in. (167.64 cm); Pain 9/10; 10:46 Temp 98.5(O); ic1 11:11 BP 123 / 67; Pulse 81; Resp 18; Pulse Ox 100% ; ic1 10:45 Body Mass Index 32.76 (92.08 kg, 167.64 cm) vg1 MDM: 10:40 Patient medically screened. rn 11:03 Differential diagnosis: dental caries, gingivitis, dental abscess. Data reviewed: vital rn signs, nurses notes, and as a result, I will discharge patient. Counseling: I had a detailed discussion with the patient and/or guardian regarding: the historical points, exam findings, and any diagnostic results supporting the discharge/admit diagnosis, lab results, radiology results, the need for outpatient follow up, to return to the emergency department if symptoms worsen or persist or if there are any questions or concerns that arise at home. Response to treatment: the patient's symptoms have mildly improved after treatment, and as a result, I will discharge patient. Special discussion: I discussed with the patient/guardian in detail that at this point there is no indication for admission to the hospital. It is understood, however, that if the symptoms persist or worsen the patient needs to return immediately for re-evaluation. Administered Medications: 11:09 Drug: Decadron (dexamethasone) 10 mg Route: IM; Site: right deltoid; ic1 11:10 Drug: [place] (HYDROcodone-acetaminophen) 10 mg-325 mg 1 tabs Route: PO; ic1 Disposition Summary: 08/01/21 11:08 Discharge Ordered Location: Home rn Problem: an ongoing problem rn Symptoms: have improved rn Condition: Stable rn Diagnosis - Dental caries, unspecified rn Followup: rn - With: Private Physician - When: As needed - Reason: Recheck today's complaints, Re-evaluation by your physician Discharge Instructions: - Discharge Summary Sheet rn - Dental Caries, Adult rn - Dental Pain rn Forms: - Medication Reconciliation Form rn - Thank You Letter rn - 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 Head/Face: Normocephalic, atraumatic. ENT: + poor dentition with tenderness along left gums, no abscess Neck: Trachea midline, no thyromegaly or masses palpated, and no cervical lymphadenopathy. Supple, full range of motion without nuchal rigidity, or vertebral point tenderness. No Meningismus. rn
[2021-08-01 12:17] VITALS: TEMP 98.5
[2021-08-01 12:18] VITALS: BP 123/67; O2SAT 100
== END 2021-08-01 11:26 | disposition home or self-care (01) ==
LOC: ER 10:37
DX: K02.9 Dental caries, unspecified (principal); Z88.8 Allergy status to other drugs, medicaments and biological substances
CPT/HCPCS: 96372; 99283; J1100

== ENCOUNTER 2021-10-06 07:58 | Day surgery (SDC) | payer OTHER ==
[2021-10-06] MEDS ORDERED: NA CHLORIDE 0.9% 1,000 ML ONE (08:53)
[2021-10-06] MEDS ORDERED: LIDOCAINE 1% MPF 5 ML VIAL ONE (09:52)
[2021-10-06] MEDS ORDERED: propofoL 200 MG/20 ML VIAL IV ONE (09:52)
[2021-10-06 10:39] VITALS: O2SAT 100
[2021-10-06 10:40] VITALS: BP 123/63
[2021-10-06 11:03] VITALS: TEMP 97.2
== END 2021-10-06 10:52 | disposition home or self-care (01) ==
LOC: OR 07:58
PROVIDERS: ATTEND Internal Medicine Gastroenterology
PROC: 0DJ08ZZ Inspection of Upper Intestinal Tract, Via Natural or Artificial Opening Endoscopic (ICD-10-PCS; principal; 2021-10-06 10:15)
DX: I85.00 Esophageal varices without bleeding (principal); K76.6 Portal hypertension; K31.89 Other diseases of stomach and duodenum; E11.9 Type 2 diabetes mellitus without complications; F41.9 Anxiety disorder, unspecified; K74.60 Unspecified cirrhosis of liver; F32.A Depression, unspecified; K21.9 Gastro-esophageal reflux disease without esophagitis; I10 Essential (primary) hypertension; Z20.822 Contact with and (suspected) exposure to COVID-19
CPT/HCPCS: 82947; 43235; U0003; J2704; J7030

== ENCOUNTER 2022-01-24 10:01 | Inpatient (IN) | payer OTHER ==
--- OUTSIDE RECORDS SUMMARY | 2022-01-24 10:23 | XMS REPORT | Continuity of Care Document ---
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 tablet 00:00: mouth daily. Medical Branch spironolact 2020-0 Yes [id number] 25mg Take 1 [facility] one 25 mg 5-19 tablet by ity o f tablet 00:00: mouth (two) Medical times Branch daily. carvediloL 2020-0 Yes [id number] 3.125mg Take 1 [facility] 3.125 mg 5-19 tablet by ity of tablet 00:00: mouth (two) Medical times Branch daily with meals. Pitavastati 2020-0 Yes [id number] 2mg Take 2 mg [facility] n (LIVALO) 5-19 by mouth ity o f 2 mg Tab 00:00: daily. Medical Branch pantoprazol 2020-0 Yes [id number] 40mg Take 1 [facility] e 40 mg EC 5-19 tablet by ity of tablet 00:00: mouth daily. Medical Branch metFORMIN 2020-0 Yes [id number] 500mg Take 1 [facility] 500 mg 5-19 tablet by ity of tablet 00:00: mouth (two) Medical times Branch daily with meals. Blood-Gluco 2020-0 Yes [id number] Use BID, [facility] se Meter 5-19 DX E11.9 ity of (ACCU-CHEK 00:00: ([employer] [place] GUIDE 00 upon Medical GLUCOSE insurance Branch METER) Misc approval) ACCU-CHEK GUIDE blood sugar 2020-0 Yes [id number] Use BID, [facility] diagnostic 5-19 DX E11.9 ity o f (ACCU-CHEK 00:00: (m-spatial GUIDE TEST 00 upon Medical STRIPS) insurance Branch strip approval) rifAXIMin 0 Yes [id number] 550mg Take 1 [facility] 550 mg 5-19 tablet by ity of tablet 00:00: mouth (two) Medical times Branch daily. furosemide 2020-0 Yes [id number] 40mg Take 1 [facility] 40 mg 5-19 tablet by ity of tablet 00:00: mouth 00 every Medical morning Branch and evening. hydrOXYzine 2020-0 Yes [id number] 50mg Take 1 [facility] nivers 50 mg 5-19 tablet by ity of tablet 00:00: mouth 3 (three) Medical times Branch daily as needed for Itching. lisinopriL 2020-0 Yes [id number] 20mg Take 1 [facility] nivers 20 mg 5-19 tablet by ity of tablet 00:00: mouth daily. Medical Branch spironolact 2020-0 Yes [id number] 25mg Take 1 [facility] one 25 mg 5-19 tablet by ity o f tablet 00:00: mouth (two) Medical times Branch daily. carvediloL 2020-0 Yes [id number] 3.125mg Take 1 [facility] 3.125 mg 5-19 tablet by ity of tablet 00:00: mouth (two) Medical times Branch daily with meals. Pitavastati 2020- Yes [id number] 2mg Take 2 mg [facility] n (LIVALO) 5-19 by mouth ity o f 2 mg Tab 00:00: daily. Medical Branch metFORMIN 2020-0 Yes [id number] 500mg Take 1 [facility] 500 mg 5-19 tablet by ity of tablet 00:00: mouth 2 (two) Medical times Branch daily with meals. Blood-Gluco 2020-0 Yes [id number] Use BID, [facility] se Meter 5-19 DX E11.9 ity of (ACCU-CHEK 00:00: ([employer] [place] GUIDE 00 upon Medical GLUCOSE insurance Branch METER) Misc approval) ACCU-CHEK GUIDE blood sugar 2020-0 Yes [id number] Use BID, [facility] diagnostic 5-19 DX E11.9 ity o f (ACCU-CHEK 00:00: (m-spatial GUIDE TEST 00 upon Medical STRIPS) insurance Branch strip approval) rifAXIMin 2020- Yes [id number] 550mg Take 1 [facility] 550 mg 5-19 tablet by ity of tablet 00:00: mouth (two) Medical times Branch daily. hydrOXYzine 2020-0 Yes [id number] 50mg Take 1 [facility] nivers 50 mg 5-19 tablet by ity of tablet 00:00: mouth 3 (three) Medical times Branch daily as needed for Itching. lisinopriL 2020-0 Yes [id number] 20mg Take 1 [facility] nivers 20 mg 5-19 tablet by ity of tablet 00:00: mouth daily. Medical Branch spironolact 2020-0 Yes [id number] 25mg Take 1 [facility] one 25 mg 5-19 tablet by ity o f tablet 00:00: mouth 2 (two) Medical times Branch daily. carvediloL 2020-0 Yes [id number] 3.125mg Take 1 [facility] 3.125 mg 5-19 tablet by ity of tablet 00:00: mouth (two) Medical times Branch daily with meals. Pitavastati 2020-0 Yes [id number] 2mg Take 2 mg [facility] n (LIVALO) 5-19 by mouth ity o f 2 mg Tab 00:00: daily. Medical Branch metFORMIN 2020-0 Yes [id number] 500mg Take 1 [facility] 500 mg 5-19 tablet by ity of tablet 00:00: mouth 2 (two) Medical times Branch daily with meals. Blood-Gluco 2020-0 Yes [id number] Use BID, [facility] se Meter 5-19 DX E11.9 ity of (ACCU-CHEK 00:00: (Brand [place] GUIDE 00 upon Medical GLUCOSE insurance Branch METER) Misc approval) ACCU-CHEK GUIDE blood sugar 2020-0 Yes [id number] Use BID, [facility] diagnostic 5-19 DX E11.9 ity o f (ACCU-CHEK 00:00: (Brand [place] GUIDE TEST 00 upon Medical STRIPS) insurance Branch strip approval) rifAXIMin 2020-0 Yes [id number] 550mg Take 1 [facility] 550 mg 5-19 tablet by ity of tablet 00:00: mouth (two) Medical times Branch daily. hydrOXYzine 2020-0 Yes [id number] 50mg Take 1 U nivers 50 mg 5-19 tablet by ity of tablet 00:00: mouth 3 (three) Medical times Branch daily as needed for Itching. lisinopriL 2020-0 Yes [id number] 20mg Take 1 U nivers 20 mg 5-19 tablet by ity of tablet 00:00: mouth daily. Medical Branch spironolact 2020-0 Yes [id number] 25mg Take 1 [facility] one 25 mg 5-19 tablet by ity o f tablet 00:00: mouth 2 (two) Medical times Branch daily. carvediloL 2020-0 Yes [id number] 3.125mg Take 1 [facility] 3.125 mg 5-19 tablet by ity of tablet 00:00: mouth (two) Medical times Branch daily with meals. Pitavastati 2020-0 Yes [id number] 2mg Take 2 mg [facility] n (LIVALO) 5-19 by mouth ity o f 2 mg Tab 00:00: daily. Medical Branch metFORMIN 2020-0 Yes [id number] 500mg Take 1 [facility] 500 mg 5-19 tablet by ity of tablet 00:00: mouth 2 (two) Medical times Branch daily with meals. Blood-Gluco 2020-0 Yes [id number] Use BID, [facility] se Meter 5-19 DX E11.9 ity of (ACCU-CHEK 00:00: (Brand [place] GUIDE 00 upon Medical GLUCOSE insurance Branch METER) Misc approval) ACCU-CHEK GUIDE blood sugar Yes [id number] Use BID, [facility] diagnostic 5-19 DX E11.9 ity o f (ACCU-CHEK 00:00: (m-spatial GUIDE TEST 00 upon Medical STRIPS) insurance Branch strip approval) rifAXIMin Yes [id number] 550mg Take 1 [facility] 550 mg 5-19 tablet by ity of tablet 00:00: mouth 2 [place] 00 (two) Medical times Branch daily. hydrOXYzine Yes [id number] 50mg Take 1 U nivers 50 mg 5-19 tablet by ity of tablet 00:00: mouth 3 [place] 00 (three) Medical times Branch daily as needed for Itching. lisinopriL Yes [id number] 20mg Take 1 [facility] nivers 20 mg 5-19 tablet by ity of tablet 00:00: mouth [place] 00 daily. Medical Branch spironolact Yes [id number] 25mg Take 1 [facility] one 25 mg 5-19 tablet by ity o f tablet 00:00: mouth 2 [place] 00 (two) Medical times Branch daily. furosemide 2020- No [id number] 40mg Take 1 [facility] 40 mg 5-19 10-20 tablet by ity of tablet 00:00: 00:00 mouth [place] 00 :00 every Medical morning Branch and evening. pantoprazol 2020- No [id number] 40mg Take 1 [facility] e 40 mg EC 5-19 10-19 tablet by ity of tablet 00:00: 00:00 mouth [place] 00 :00 daily. Medical Branch spironolact 2020- No 100mg Q.5D Take [address] [facility] one 4-06 04-06 mg [facility] (ALDACTONE) 12:49: 00:00 mouth 2 Me dical 100 MG 47 :00 (two) Center tablet times daily. penicillin 2020- No 500mg Q.[id number] Take [address] [facility] v potassium 4-06 04-06 [id number] mg [facility] (VEETID) 12:48: 00:00 3D mouth 3 Medic al 500 MG 17 :00 (three) Center tablet times daily. pitavastati 2020- No 2mg QD Take [address] [facility] n calcium 09-01-06 by mouth [facility] (LIVALO) 2 12:48: 00:00 daily . Med ical mg Tab 08 :00 Center tablet thiamine 2020- No 100mg QD Take [address] [facility] (vitamin 09-01-06 mg by [facility] B-1) 100 MG 12:48: 00:00 mouth Medi jeevan tablet 08 :00 daily. Center azithromyci Yes [id number] 250mg Take 1 [facility] n 24 tablet by ity of (ZITHROMAX 00:00: mouth [place] Z-MERCY) 250 00 daily. Medical mg tablet Take 500 Branch mg day 1, then 250 mg days 2 to 5. azithromyci 2020- No [id number] 250mg Take 1 [facility] n 310-14 tablet by ity of (ZITHROMAX 00:00: 00:00 mouth [place] Z-MERCY) 250 00 :00 daily. Medical mg tablet Take 500 Branch mg day 1, then 250 mg days 2 to 5. azithromyci 2020- No [id number] 250mg Take 1 [facility] n 08-19 tablet by ity of (ZITHROMAX 00:00: 00:00 mouth [place] Z-MERCY) 250 00 :00 daily. Medical mg tablet Take 500 Branch mg day 1, then 250 mg days 2 to 5. LISINOPRIL Yes [id number] Take 1 U nivers 20 mg 3-09 tablet by ity of tablet 00:00: mouth once 00 daily Medical Branch LISINOPRIL 2020-0 Yes [id number] Take 1 U nivers 20 mg 3-09 tablet by ity of tablet 00:00: mouth once 00 daily Medical Branch LISINOPRIL 2020-0 Yes [id number] Take 1 [facility] nivers 20 mg 3-09 tablet by ity of tablet 00:00: mouth once 00 daily Medical Branch LISINOPRIL 2020- No [id number] Take 1 [facility] 20 mg -01 31- tablet by ity of tablet 00:00: 00:00 mouth [place] 00 :[place] daily Medical Branch LISINOPRIL 2020- No [id number] Take 1 [facility] 20 mg -09 05-19 tablet by ity of tablet 00:00: 00:00 mouth [place] 00 :00 daily Medical Branch clobetasoL 2021-0 Yes [id number] Apply to [facility] 0.05 % 2-09 area(s) 2 ity of cream 00:00: (two) [place] 00 times Medical daily. Branch clobetasoL 2021-0 Yes [id number] Apply to [facility] 0.05 % 2-09 area(s) 2 ity of cream 00:00: (two) [place] 00 times Medical daily. Branch clobetasoL 2021-0 Yes [id number] Apply to [facility] 0.05 % 2-09 area(s) 2 ity of cream 00:00: (two) [place] 00 times Medical daily. Branch clobetasoL 2021-0 Yes [id number] Apply to Univers 0.05 % 2-09 area(s) 2 ity of cream 00:00: (two) [place] 00 times Medical daily. Branch clobetasoL 2021-0 Yes [id number] Apply to Univers 0.05 % 2-09 area(s) 2 ity of cream 00:00: (two) [place] 00 times Medical daily. Branch clobetasoL 2021-0 Yes [id number] Apply to [facility] 0.05 % 2-09 area(s) 2 ity of cream 00:00: (two) [place] 00 times Medical daily. Branch clobetasoL 2021-0 Yes [id number] Apply to Univers 0.05 % 2-09 area(s) 2 ity of cream 00:00: (two) [place] 00 times Medical daily. Branch clobetasoL 2021-0 Yes [id number] Apply to Univers 0.05 % 2-09 area(s) 2 ity of cream 00:00: (two) [place] 00 times Medical daily. Branch clobetasoL 2021-0 Yes [id number] Apply to Univers 0.05 % 2-09 area(s) 2 ity of cream 00:00: (two) [place] 00 times Medical daily. Branch clobetasoL 2021-0 Yes [id number] Apply to [facility] 0.05 % 2-09 area(s) 2 ity of cream 00:00: (two) [place] 00 times Medical daily. Branch clobetasoL 2021-0 Yes [id number] Apply to Univers 0.05 % 2-09 area(s) 2 ity of cream 00:00: (two) [place] 00 times Medical daily. Branch clobetasoL Yes [id number] Apply to Univers 0.05 % 2-09 area(s) 2 ity of cream 00:00: (two) [place] 00 times Medical daily. Branch clobetasoL Yes [id number] Apply to [facility] 0.05 % 2-09 area(s) 2 ity of cream 00:00: (two) [place] 00 times Medical daily. Branch clobetasoL Yes [id number] Apply to Univers 0.05 % 2-09 area(s) 2 ity of cream 00:00: (two) [place] 00 times Medical daily. [place] azithromyci 2020- No 500mg 500 mg, IV [facility] n 06-26 [place], ity of (ZITHROMAX) 03:45: 02:58 ONCE, 1 [place] injection 00 :00 dose, Alyssa Medic al 500 mg 06/25/20 at Branch 2145, STAT
Re ason for Anti-Infec tive: Documented Infection< br>Documen lisa Infection Site: Respirator y
Durat ion of Therapy: 7 days cefTRIAXone No 1000mg 1,000 mg, [facility] (ROCEPHIN) 06-26 IV ity of 1,000 mg in 03:45: 03:27 [place]gyback, [place] NaCl 0.9% 00 :00 ONCE, 1 Medical (NS) 50 mL dose, Alyssa Bran ch MINI-BAG 06/25/20 at 2145, 50 mL
Reas on for Anti-Infec tive: Documented Infection< br>Documen lisa Infection Site: Respirator y
Durat ion of Therapy: 7 days foLIC acid Yes [id number] 1mg Take 1 [facility] 1 mg tablet 1-28 tablet by ity of 00:00: mouth [place] 00 daily. [facility] foLIC acid Yes [id number] 1mg Take 1 [facility] 1 mg tablet 1-28 tablet by ity of 00:00: mouth [place] 00 daily. [facility] foLIC acid Yes [id number] 1mg Take 1 [facility] 1 mg tablet 1-28 tablet by ity of 00:00: mouth [place] 00 daily. Medical Branch foLIC acid 2020-0 Yes [id number] 1mg Take 1 [facility] 1 mg tablet 1-28 tablet by ity of 00:00: mouth [place] 00 daily. Medical Branch foLIC acid 2020-0 Yes [id number] 1mg Take 1 [facility] 1 mg tablet 1-28 tablet by ity of 00:00: mouth [place] 00 daily. Medical Branch foLIC acid 0 Yes [id number] 1mg Take 1 [facility] 1 mg tablet 1-28 tablet by ity of 00:00: mouth [place] 00 daily. Medical Branch foLIC acid 0 Yes [id number] 1mg Take 1 [facility] 1 mg tablet 1-28 tablet by ity of 00:00: mouth [place] 00 daily. Medical Branch foLIC acid 0 Yes [id number] 1mg Take 1 [facility] 1 mg tablet 1-28 tablet by ity of 00:00: mouth [place] 00 daily. Medical Branch foLIC acid 0 Yes [id number] 1mg Take 1 [facility] 1 mg tablet 1-28 tablet by ity of 00:00: mouth [place] 00 daily. Medical Branch foLIC acid 0 Yes [id number] 1mg Take 1 [facility] 1 mg tablet 1-28 tablet by ity of 00:00: mouth [place] 00 daily. Medical Branch foLIC acid 0 Yes [id number] 1mg Take 1 [facility] 1 mg tablet 1-28 tablet by ity of 00:00: mouth [place] 00 daily. Medical Branch foLIC acid 0 Yes [id number] 1mg Take 1 [facility] 1 mg tablet 1-28 tablet by ity of 00:00: mouth [place] 00 daily. Medical Branch foLIC acid 0 Yes [id number] 1mg Take 1 [facility] 1 mg tablet 1-28 tablet by ity of 00:00: mouth [place] 00 daily. Medical Branch foLIC acid 2020-0 Yes [id number] 1mg Take 1 [facility] 1 mg tablet 1-28 tablet by ity of 00:00: mouth [place] 00 daily. Medical Branch foLIC acid 0 Yes [id number] 1mg Take 1 [facility] 1 mg tablet 1-28 tablet by ity of 00:00: mouth [place] 00 daily. Medical Branch amoxicillin 2020-0 2020- No [id number] 500mg Take 1 [facility] -pot 1-28 02-05 tablet by ity of clavulanate 00:00: 05:59 [place] 500 mg 00 :00 every 8 Medical 500-125 mg (eight) Branch tablet hours for 7 days. clobetasoL Yes 1{appli Q.5D Apply [address] [facility] (TEMOVATE) 8-03 cation} [facility] 0.05 % 00:00: n Medical cream 00 topically Center 2 (two) times daily. clobetasoL Yes 1{appli Q.5D Apply [address] [facility] (TEMOVATE) 8-03 cation} [facility] 0.05 % 00:00: n Medical cream 00 topically Center 2 (two) times daily. furosemide 80mg Q.5D Take [address] [facility] (LASIX) 40 107 04-06 tablets [facility] MG tablet 00:00: 00:00 (80 mg Medic al 00 :00 total) by Center mouth 2 (two) times daily. furosemide 2018-05 Yes [id number] 40mg Take 1 U nivers 40 mg 2-20 tablet by ity of tablet 00:00: mouth [place] 00 every Medical morning Branch and evening. metFORMIN 2018-05 Yes [id number] 500mg Take 1 [facility] 500 mg 2-20 tablet by ity of tablet 00:00: mouth 2 [place] (two) Medical times Branch daily with meals. carvedilol 2018-05 Yes [id number] 3.125mg Take 1 [facility] 3.125 mg 2-20 tablet by ity of tablet 00:00: mouth 2 [place] (two) Medical times Branch daily with meals. lisinopril 2018-05 Yes [id number] 20mg Take 1 U nivers 20 mg 2-20 tablet by ity of tablet 00:00: mouth [place] 00 daily. Medical Branch spironolact 2018- Yes [id number] 25mg Take 1 [facility] one 25 mg 2-20 tablet by ity o f tablet 00:00: mouth 2 [place] 00 (two) Medical times Branch daily. rifAXIMin 2018-05 Yes [id number] 550mg Take 1 [facility] 550 mg 2-20 tablet by ity of tablet 00:00: mouth 2 [place] 00 (two) Medical times Branch daily. albuterol 2018-05 Yes [id number] 2{puff} Inhale 2 Univers 90 2-20 Puffs ity of mcg/actuati 00:00: every 6 [place] on inhaler 00 (six) Medical hours as Branch needed for Wheezing or Shortness of Breath. Pitavastati 2018-05 Yes [id number] 2mg Take 2 mg Univers n (LIVALO) 2-20 by mouth ity o f 2 mg Tab 00:00: daily. [place] 00 Medical Branch Lancets 2018-05 Yes [id number] Use BID, U nivers Misc 2-20 DX E11.9 ity of 00:00: ([facility] 00 upon Medical insurance Branch approval) blood sugar 2018-05 Yes [id number] Use BID, Univers diagnostic 2-20 DX E11.9 ity o f (ACCU-CHEK 00:00: ([facility] GUIDE) [address] [place] [address] strip insurance Branch approval) lactulose 2018-05 Yes [id number] 15mL Take 15 mL Univers 10 gram/15 2-20 by mouth 3 ity of mL solution 00:00: (three) [place] 00 times Medical daily. Branch hydrOXYzine 2018-05 Yes [id number] 50mg Take 1 U nivers 50 mg 2-20 tablet by ity of tablet 00:00: mouth 3 [place] 00 (three) Medical times Branch daily as needed for Itching. calcipotrie 2018-05 Yes [id number] Apply to Univers ne 0.005 % 2-20 area(s) 2 ity of cream 00:00: (two) [place] 00 times Medical daily. Branch clobetasol 2018-05 Yes [id number] Apply to Univers 0.05 % 2-20 area(s) 2 ity of cream 00:00: (two) [place] 00 times Medical daily. Branch foLIC acid 2018-05 Yes [id number] 1mg Take 1 [facility] 1 mg tablet 2-20 tablet by ity of 00:00: mouth [place] 00 daily. Medical Branch pantoprazol 2018-05 Yes [id number] 40mg Take 1 [facility] e 40 mg EC 2-20 tablet by ity of tablet 00:00: mouth [place] 00 daily. Medical Branch triamcinolo 2018-05 Yes [id number] Apply to Univers ne 2-20 affected ity of acetonide 00:00: area(s) 2 [place] 0.1 % cream 00 (two) Medical times Branch daily. furosemide 2018-05 Yes [id number] 40mg Take 1 U nivers 40 mg 2-20 tablet by ity of tablet 00:00: mouth 00 every Medical morning Branch and evening. metFORMIN 2018-05 Yes [id number] 500mg Take 1 [facility] 500 mg 2-20 tablet by ity of tablet 00:00: mouth 2 (two) Medical times Branch daily with meals. carvedilol 2018-05 Yes [id number] 3.125mg Take 1 [facility] 3.125 mg 2-20 tablet by ity of tablet 00:00: mouth (two) Medical times Branch daily with meals. lisinopril 2018-05 Yes [id number] 20mg Take 1 U nivers 20 mg 2-20 tablet by ity of tablet 00:00: mouth daily. Medical Branch spironolact 2018-05 Yes [id number] 25mg Take 1 [facility] one 25 mg 2-20 tablet by ity o f tablet 00:00: mouth 2 (two) Medical times Branch daily. rifAXIMin 2018-05 Yes [id number] 550mg Take 1 [facility] 550 mg 2-20 tablet by ity of tablet 00:00: mouth 2 (two) Medical times Branch daily. albuterol 2018-05 Yes [id number] 2{puff} Inhale 2 [facility] 90 2-20 Puffs ity of mcg/actuati 00:00: every 6 [place] on inhaler 00 (six) Medical hours as Branch needed for Wheezing or Shortness of Breath. Pitavastati 2018-05 Yes [id number] 2mg Take 2 mg [facility] n (LIVALO) 2-20 by mouth ity o f 2 mg Tab 00:00: daily. [place] 00 Medical Branch Lancets 2018-05 Yes [id number] Use BID, U nivers Misc 2-20 DX E11.9 ity of 00:00: (Brand [place] 00 upon Medical insurance Branch approval) blood sugar 2018-05 Yes [id number] Use BID, [facility] diagnostic 2-20 DX E11.9 ity o f (ACCU-CHEK 00:00: ([facility] GUIDE) 00 upon Medical strip insurance Branch approval) lactulose 2018-05 Yes [id number] 15mL Take 15 mL [facility] 10 gram/15 2-20 by mouth 3 ity of mL solution 00:00: (three) [place] 00 times Medical daily. Branch hydrOXYzine 2018-05 Yes [id number] 50mg Take 1 U nivers 50 mg 2-20 tablet by ity of tablet 00:00: mouth 3 [place] 00 (three) Medical times Branch daily as needed for Itching. calcipotrie 2018-05 Yes [id number] Apply to Univers ne 0.005 % 2-20 area(s) 2 ity of cream 00:00: (two) [place] 00 times Medical daily. Branch clobetasol 2018-05 Yes [id number] Apply to Univers 0.05 % 2-20 area(s) 2 ity of cream 00:00: (two) [place] 00 times Medical daily. Branch foLIC acid 2018-05 Yes [id number] 1mg Take 1 [facility] 1 mg tablet 2-20 tablet by ity of 00:00: mouth [place] 00 daily. Medical Branch pantoprazol 2018-05 Yes [id number] 40mg Take 1 [facility] e 40 mg EC 2-20 tablet by ity of tablet 00:00: mouth [place] 00 daily. Medical Branch triamcinolo 2018-05 Yes [id number] Apply to Univers ne 2-20 affected ity of acetonide 00:00: area(s) 2 [place] 0.1 % cream 00 (two) Medical times Branch daily. furosemide 2018-05 Yes [id number] 40mg Take 1 U nivers 40 mg 2-20 tablet by ity of tablet 00:00: mouth [place] 00 every Medical morning Branch and evening. metFORMIN 2018-05 Yes [id number] 500mg Take 1 [facility] 500 mg 2-20 tablet by ity of tablet 00:00: mouth 2 [place] 00 (two) Medical times Branch daily with meals. carvedilol 2018-05 Yes [id number] 3.125mg Take 1 [facility] 3.125 mg 2-20 tablet by ity of tablet 00:00: mouth 2 [place] 00 (two) Medical times Branch daily with meals. lisinopril 2018-05 Yes [id number] 20mg Take 1 U nivers 20 mg 2-20 tablet by ity of tablet 00:00: mouth [place] 00 daily. Medical Branch spironolact 2018-05 Yes [id number] 25mg Take 1 [facility] one 25 mg 2-20 tablet by ity o f tablet 00:00: mouth 2 [place] 00 (two) Medical times Branch daily. rifAXIMin 2018-05 Yes [id number] 550mg Take 1 [facility] 550 mg 2-20 tablet by ity of tablet 00:00: mouth 2 [place] (two) Medical times Branch daily. albuterol 2018-05 Yes [id number] 2{puff} Inhale 2 [facility] 90 2-20 Puffs ity of mcg/actuati 00:00: every 6 [place] on inhaler 00 (six) Medical hours as Branch needed for Wheezing or Shortness of Breath. Pitavastati 2018-05 Yes [id number] 2mg Take 2 mg [facility] n (LIVALO) 2-20 by mouth ity o f 2 mg Tab 00:00: daily. [place] Medical Branch Lancets 2018-05 Yes [id number] Use BID, U nivers Misc 2-20 DX E11.9 ity of 00:00: ([facility] 00 upon Medical insurance Branch approval) blood sugar 2018-05 Yes [id number] Use BID, Univers diagnostic 2-20 DX E11.9 ity o f (ACCU-CHEK 00:00: ([facility] GUIDE) [address] [place] [address] Medical strip insurance Branch approval) lactulose 2018-05 Yes [id number] 15mL Take 15 mL [facility] 10 gram/15 2-20 by mouth 3 ity of mL solution 00:00: (three) [place] 00 times Medical daily. Branch hydrOXYzine 2018-05 Yes [id number] 50mg Take 1 U nivers 50 mg 2-20 tablet by ity of tablet 00:00: mouth 3 [place] 00 (three) Medical times Branch daily as needed for Itching. calcipotrie 2018-05 Yes [id number] Apply to Univers ne 0.005 % 2-20 area(s) 2 ity of cream 00:00: (two) [place] 00 times Medical daily. Branch clobetasol 2018-05 Yes [id number] Apply to Univers 0.05 % 2-20 area(s) 2 ity of cream 00:00: (two) [place] 00 times Medical daily. Branch pantoprazol 2018-05 Yes [id number] 40mg Take 1 [facility] e 40 mg EC 2-20 tablet by ity of tablet 00:00: mouth [place] 00 daily. Medical Branch triamcinolo 2018-05 Yes [id number] Apply to Univers ne 2-20 affected ity of acetonide 00:00: area(s) 2 [place] 0.1 % cream 00 (two) Medical times Branch daily. furosemide 2018- Yes [id number] 40mg Take 1 U nivers 40 mg 2-20 tablet by ity of tablet 00:00: mouth 00 every Medical morning Branch and evening. metFORMIN 2018-05 Yes [id number] 500mg Take 1 [facility] 500 mg 2-20 tablet by ity of tablet 00:00: mouth 2 (two) Medical times Branch daily with meals. carvedilol 2018-05 Yes [id number] 3.125mg Take 1 [facility] 3.125 mg 2-20 tablet by ity of tablet 00:00: mouth 2 (two) Medical times Branch daily with meals. lisinopril 2018-05 Yes [id number] 20mg Take 1 U nivers 20 mg 2-20 tablet by ity of tablet 00:00: mouth daily. Medical Branch spironolact 2018-05 Yes [id number] 25mg Take 1 [facility] one 25 mg 2-20 tablet by ity o f tablet 00:00: mouth 2 (two) Medical times Branch daily. rifAXIMin 2018-05 Yes [id number] 550mg Take 1 [facility] 550 mg 2-20 tablet by ity of tablet 00:00: mouth (two) Medical times Branch daily. albuterol 2018-05 Yes [id number] 2{puff} Inhale 2 [facility] 90 2-20 Puffs ity of mcg/actuati 00:00: every 6 [place] on inhaler 00 (six) Medical hours as Branch needed for Wheezing or Shortness of Breath. Pitavastati 2018-05 Yes [id number] 2mg Take 2 mg [facility] n (LIVALO) 2-20 by mouth ity o f 2 mg Tab 00:00: daily. [place] 00 Medical Branch Lancets 2018-05 Yes [id number] Use BID, U nivers Misc 2-20 DX E11.9 ity of 00:00: ([facility] [place] 00 upon Medical insurance Branch approval) blood sugar 2018-05 Yes [id number] Use BID, Univers diagnostic 2-20 DX E11.9 ity o f (ACCU-CHEK 00:00: ([facility] GUIDE) [address] [place] [address] Medical strip insurance Branch approval) lactulose 2018-05 Yes [id number] 15mL Take 15 mL [facility] 10 gram/15 2-20 by mouth 3 ity of mL solution 00:00: (three) [place] 00 times Medical daily. Branch hydrOXYzine 2018-05 Yes [id number] 50mg Take 1 U nivers 50 mg 2-20 tablet by ity of tablet 00:00: mouth 3 [place] 00 (three) Medical times Branch daily as needed for Itching. calcipotrie 2018-05 Yes [id number] Apply to Univers ne 0.005 % 2-20 area(s) 2 ity of cream 00:00: (two) [place] 00 times Medical daily. Branch clobetasol 2018-05 Yes [id number] Apply to Univers 0.05 % 2-20 area(s) 2 ity of cream 00:00: (two) [place] 00 times Medical daily. Branch pantoprazol 2018-05 Yes [id number] 40mg Take 1 [facility] e 40 mg EC 2-20 tablet by ity of tablet 00:00: mouth [place] 00 daily. Medical Branch triamcinolo 2018-05 Yes [id number] Apply to Univers ne 2-20 affected ity of acetonide 00:00: area(s) 2 [place] 0.1 % cream 00 (two) Medical times Branch daily. albuterol 2018-05 Yes [id number] 2{puff} Inhale 2 [facility] 90 2-20 Puffs ity of mcg/actuati 00:00: every 6 [place] on inhaler 00 (six) Medical hours as Branch needed for Wheezing or Shortness of Breath. Lancets 2018-05 Yes [id number] Use BID, U nivers Misc 2-20 DX E11.9 ity of 00:00: (Brand [place] 00 upon Medical insurance Branch approval) lactulose 2018-05 Yes [id number] 15mL Take 15 mL [facility] 10 gram/15 2-20 by mouth 3 ity of mL solution 00:00: (three) [place] 00 times Medical daily. Branch calcipotrie 2018-05 Yes [id number] Apply to [facility] ne 0.005 % 2-20 area(s) 2 ity of cream 00:00: (two) [place] 00 times Medical daily. Branch triamcinolo 2018-05 Yes [id number] Apply to [facility] ne 2-20 affected ity of acetonide 00:00: area(s) 2 [place] 0.1 % cream 00 (two) Medical times Branch daily. furosemide 2018-05 Yes [id number] 40mg Take 1 U nivers 40 mg 2-20 tablet by ity of tablet 00:00: mouth [place] 00 every Medical morning Branch and evening. metFORMIN 2018-05 Yes [id number] 500mg Take 1 [facility] 500 mg 2-20 tablet by ity of tablet 00:00: mouth 2 (two) Medical times Branch daily with meals. carvedilol 2018-05 Yes [id number] 3.125mg Take 1 [facility] 3.125 mg 2-20 tablet by ity of tablet 00:00: mouth 2 [place] (two) Medical times Branch daily with meals. spironolact 2018-05 Yes [id number] 25mg Take 1 [facility] one 25 mg 2-20 tablet by ity o f tablet 00:00: mouth 2 (two) Medical times Branch daily. rifAXIMin 2018-05 Yes [id number] 550mg Take 1 [facility] 550 mg 2-20 tablet by ity of tablet 00:00: mouth 2 [place] (two) Medical times Branch daily. albuterol 2018-05 Yes [id number] 2{puff} Inhale 2 [facility] 90 2-20 Puffs ity of mcg/actuati 00:00: every 6 [place] on inhaler 00 (six) Medical hours as Branch needed for Wheezing or Shortness of Breath. Pitavastati 2018-05 Yes [id number] 2mg Take 2 mg [facility] n (LIVALO) 2-20 by mouth ity o f 2 mg Tab 00:00: daily. [place] [address] Medical Branch Lancets 2018-05 Yes [id number] Use BID, U nivers Misc 2-20 DX E11.9 ity of 00:00: ([facility] 00 [facility] Medical insurance Branch approval) blood sugar 2018-05 Yes [id number] Use BID, [facility] diagnostic 2-20 DX E11.9 ity o f (ACCU-CHEK 00:00: ([facility] GUIDE) [address] [place] [address] Medical strip insurance Branch approval) lactulose 2018-05 Yes [id number] 15mL Take 15 mL [facility] 10 gram/15 2-20 by mouth 3 ity of mL solution 00:00: (three) [place] 00 times Medical daily. Branch hydrOXYzine 2018-05 Yes [id number] 50mg Take 1 U nivers 50 mg 2-20 tablet by ity of tablet 00:00: mouth 3 [place] 00 (three) Medical times Branch daily as needed for Itching. calcipotrie 2018-05 Yes [id number] Apply to [facility] ne 0.005 % 2-20 area(s) 2 ity of cream 00:00: (two) times Medical daily. Branch pantoprazol 2018-05 Yes [id number] 40mg Take 1 [facility] e 40 mg EC 2-20 tablet by ity of tablet 00:00: mouth daily. Medical Branch triamcinolo 2018-05 Yes [id number] Apply to [facility] ne 2-20 affected ity of acetonide 00:00: area(s) 2 [place] 0.1 % cream 00 (two) Medical times Branch daily. furosemide 2018-05 Yes [id number] 40mg Take 1 U nivers 40 mg 2-20 tablet by ity of tablet 00:00: mouth every Medical morning Branch and evening. metFORMIN 2018-05 Yes [id number] 500mg Take 1 [facility] 500 mg 2-20 tablet by ity of tablet 00:00: mouth (two) Medical times Branch daily with meals. carvedilol 2018-05 Yes [id number] 3.125mg Take 1 [facility] 3.125 mg 2-20 tablet by ity of tablet 00:00: mouth 2 (two) Medical times Branch daily with meals. spironolact 2018-05 Yes [id number] 25mg Take 1 [facility] one 25 mg 2-20 tablet by ity o f tablet 00:00: mouth 2 (two) Medical times Branch daily. rifAXIMin 2018-05 Yes [id number] 550mg Take 1 [facility] 550 mg 2-20 tablet by ity of tablet 00:00: mouth 2 (two) Medical times Branch daily. albuterol 2018-05 Yes [id number] 2{puff} Inhale 2 [facility] 90 2-20 Puffs ity of mcg/actuati 00:00: every 6 [place] on inhaler 00 (six) Medical hours as Branch needed for Wheezing or Shortness of Breath. Pitavastati 2018-05 Yes [id number] 2mg Take 2 mg [facility] n (LIVALO) 2-20 by mouth ity o f 2 mg Tab 00:00: daily. Medical Branch Lancets 2018-05 Yes [id number] Use BID, U nivers Misc 2-20 DX E11.9 ity of 00:00: (Brand upon Medical insurance Branch approval) blood sugar 2018-05 Yes [id number] Use BID, [facility] diagnostic 2-20 DX E11.9 ity o f (ACCU-CHEK 00:00: (Brand [place] GUIDE) 00 upon Medical strip insurance Branch approval) lactulose 2018-05 Yes [id number] 15mL Take 15 mL [facility] 10 gram/15 2-20 by mouth 3 ity of mL solution 00:00: (three) [place] 00 times Medical daily. Branch hydrOXYzine 2018-05 Yes [id number] 50mg Take 1 U nivers 50 mg 2-20 tablet by ity of tablet 00:00: mouth 3 [place] 00 (three) Medical times Branch daily as needed for Itching. calcipotrie 2018-05 Yes [id number] Apply to [facility] ne 0.005 % 2-20 area(s) 2 ity of cream 00:00: (two) [place] 00 times Medical daily. Branch pantoprazol 2018-05 Yes [id number] 40mg Take 1 [facility] e 40 mg EC 2-20 tablet by ity of tablet 00:00: mouth [place] 00 daily. Medical Branch triamcinolo 2018-05 Yes [id number] Apply to [facility] ne 2-20 affected ity of acetonide 00:00: area(s) 2 [place] 0.1 % cream 00 (two) Medical times Branch daily. furosemide 2018-05 Yes [id number] 40mg Take 1 U nivers 40 mg 2-20 tablet by ity of tablet 00:00: mouth [place] 00 every Medical morning Branch and evening. metFORMIN 2018-05 Yes [id number] 500mg Take 1 [facility] 500 mg 2-20 tablet by ity of tablet 00:00: mouth 2 [place] 00 (two) Medical times Branch daily with meals. carvedilol 2018-05 Yes [id number] 3.125mg Take 1 [facility] 3.125 mg 2-20 tablet by ity of tablet 00:00: mouth 2 [place] 00 (two) Medical times Branch daily with meals. spironolact 2018-05 Yes [id number] 25mg Take 1 [facility] one 25 mg 2-20 tablet by ity o f tablet 00:00: mouth 2 [place] 00 (two) Medical times Branch daily. rifAXIMin 2018-05 Yes [id number] 550mg Take 1 [facility] 550 mg 2-20 tablet by ity of tablet 00:00: mouth 2 [place] 00 (two) Medical times Branch daily. albuterol 2018-1 Yes [id number] 2{puff} Inhale 2 [facility] 90 2-20 Puffs ity of mcg/actuati 00:00: every 6 [place] on inhaler 00 (six) Medical hours as Branch needed for Wheezing or Shortness of Breath. Pitavastati 2018-05 Yes [id number] 2mg Take 2 mg [facility] n (LIVALO) 2-20 by mouth ity o f 2 mg Tab 00:00: daily. [place] 00 Medical Branch Lancets 2018-05 Yes [id number] Use BID, U nivers Misc 2-20 DX E11.9 ity of 00:00: ([facility] 00 upon Medical insurance Branch approval) blood sugar 2018-05 Yes [id number] Use BID, [facility] diagnostic 2-20 DX E11.9 ity o f (ACCU-CHEK 00:00: ([facility] GUIDE) [address] [place] [address] strip insurance Branch approval) lactulose 2018-05 Yes [id number] 15mL Take 15 mL [facility] 10 gram/15 2-20 by mouth 3 ity of mL solution 00:00: (three) [place] 00 times Medical daily. Branch hydrOXYzine 2018-05 Yes [id number] 50mg Take 1 U nivers 50 mg 2-20 tablet by ity of tablet 00:00: mouth 3 [place] 00 (three) Medical times Branch daily as needed for Itching. calcipotrie 2018-05 Yes [id number] Apply to [facility] ne 0.005 % 2-20 area(s) 2 ity of cream 00:00: (two) [place] 00 times Medical daily. Branch pantoprazol 2018-05 Yes [id number] 40mg Take 1 [facility] e 40 mg EC 2-20 tablet by ity of tablet 00:00: mouth [place] 00 daily. Medical Branch triamcinolo 2018-05 Yes [id number] Apply to [facility] ne 2-20 affected ity of acetonide 00:00: area(s) 2 [place] 0.1 % cream 00 (two) Medical times Branch daily. albuterol 2018- Yes [id number] 2{puff} Inhale 2 [facility] 90 2-20 Puffs ity of mcg/actuati 00:00: every 6 [place] on inhaler 00 (six) Medical hours as Branch needed for Wheezing or Shortness of Breath. Lancets 2018-05 Yes [id number] Use BID, U nivers Misc 2-20 DX E11.9 ity of 00:00: ([address] approval) lactulose 2018-05 Yes [id number] 15mL Take 15 mL [facility] 10 gram/15 2-20 by mouth 3 ity of mL solution 00:00: (three) [place] 00 times Medical daily. Branch calcipotrie 2018-05 Yes [id number] Apply to [facility] ne 0.005 % 2-20 area(s) 2 ity of cream 00:00: (two) [place] 00 times Medical daily. Branch triamcinolo 2018-05 Yes [id number] Apply to [facility] ne 2-20 affected ity of acetonide 00:00: area(s) 2 [place] 0.1 % cream 00 (two) Medical times Branch daily. albuterol 2018-05 Yes [id number] 2{puff} Inhale 2 [facility] 90 2-20 Puffs ity of mcg/actuati 00:00: every 6 [place] on inhaler 00 (six) Medical hours as Branch needed for Wheezing or Shortness of Breath. Lancets 2018- Yes [id number] Use BID, U nivers Misc 2-20 DX E11.9 ity of 00:00: ([address] approval) lactulose 2018-05 Yes [id number] 15mL Take 15 mL [facility] 10 gram/15 2-20 by mouth 3 ity of mL solution 00:00: (three) [place] 00 times Medical daily. Branch calcipotrie 2018-05 Yes [id number] Apply to [facility] ne 0.005 % 2-20 area(s) 2 ity of cream 00:00: (two) [place] 00 times Medical daily. Branch triamcinolo 2018-05 Yes [id number] Apply to [facility] ne 2-20 affected ity of acetonide 00:00: area(s) 2 [place] 0.1 % cream 00 (two) Medical times Branch daily. albuterol 2018-05 Yes [id number] 2{puff} Inhale 2 [facility] 90 2-20 Puffs ity of mcg/actuati 00:00: every 6 [place] on inhaler 00 (six) Medical hours as Branch needed for Wheezing or Shortness of Breath. Lancets 2019- Yes [id number] Use BID, U nivers Misc 2-20 DX E11.9 ity of 00:00: (Brand [address] Branch approval) lactulose 2018-05 Yes [id number] 15mL Take 15 mL [facility] 10 gram/15 2-20 by mouth 3 ity of mL solution 00:00: (three) [place] 00 times Medical daily. Branch calcipotrie 2018-05 Yes [id number] Apply to [facility] ne 0.005 % 2-20 area(s) 2 ity of cream 00:00: (two) [place] 00 times Medical daily. Branch triamcinolo 2018-05 Yes [id number] Apply to Univers ne 2-20 affected ity of acetonide 00:00: area(s) 2 [place] 0.1 % cream 00 (two) Medical times Branch daily. albuterol 2018-05 Yes [id number] 2{puff} Inhale 2 [facility] 90 2-20 Puffs ity of mcg/actuati 00:00: every 6 [place] on inhaler 00 (six) Medical hours as Branch needed for Wheezing or Shortness of Breath. Lancets 2018-05 Yes [id number] Use BID, U nivers Misc 2-20 DX E11.9 ity of 00:00: ([address] Branch approval) lactulose 2018-05 Yes [id number] 15mL Take 15 mL [facility] 10 gram/15 2-20 by mouth 3 ity of mL solution 00:00: (three) [place] 00 times Medical daily. Branch calcipotrie 2018-05 Yes [id number] Apply to [facility] ne 0.005 % 2-20 area(s) 2 ity of cream 00:00: (two) [place] 00 times Medical daily. Branch triamcinolo 2018- Yes [id number] Apply to [facility] ne 2-20 affected ity of acetonide 00:00: area(s) 2 [place] 0.1 % cream 00 (two) Medical times Branch daily. albuterol 2018-05 Yes [id number] 2{puff} Inhale 2 [facility] 90 2-20 Puffs ity of mcg/actuati 00:00: every 6 [place] on inhaler 00 (six) Medical hours as Branch needed for Wheezing or Shortness of Breath. Lancets 2019- Yes [id number] Use BID, U nivers Misc 2-20 DX E11.9 ity of 00:00: ([address] Branch approval) lactulose 2018-05 Yes [id number] 15mL Take 15 mL [facility] 10 gram/15 2-20 by mouth 3 ity of mL solution 00:00: (three) [place] 00 times Medical daily. Branch calcipotrie 2018-05 Yes [id number] Apply to [facility] ne 0.005 % 2-20 area(s) 2 ity of cream 00:00: (two) [place] 00 times Medical daily. Branch triamcinolo 2018-05 Yes [id number] Apply to [facility] ne 2-20 affected ity of acetonide 00:00: area(s) 2 [place] 0.1 % cream 00 (two) Medical times Branch daily. albuterol 2018-05 Yes [id number] 2{puff} Inhale 2 [facility] 90 2-20 Puffs ity of mcg/actuati 00:00: every 6 [place] on inhaler 00 (six) Medical hours as Branch needed for Wheezing or Shortness of Breath. Lancets 2018-05 Yes [id number] Use BID, U nivers Misc 2-20 DX E11.9 ity of 00:00: (Brand [address] Medical insurance Branch approval) lactulose 2018-05 Yes [id number] 15mL Take 15 mL [facility] 10 gram/15 2-20 by mouth 3 ity of mL solution 00:00: (three) [place] 00 times Medical daily. Branch calcipotrie 2018-05 Yes [id number] Apply to [facility] ne 0.005 % 2-20 area(s) 2 ity of cream 00:00: (two) [place] 00 times Medical daily. Branch triamcinolo 2018-05 Yes [id number] Apply to Univers ne 2-20 affected ity of acetonide 00:00: area(s) 2 [place] 0.1 % cream 00 (two) Medical times Branch daily. albuterol 2018-05 Yes [id number] 2{puff} Inhale 2 [facility] 90 2-20 Puffs ity of mcg/actuati 00:00: every 6 [place] on inhaler 00 (six) Medical hours as Branch needed for Wheezing or Shortness of Breath. Lancets 2018-05 Yes [id number] Use BID, U nivers Misc 2-20 DX E11.9 ity of 00:00: (Brand [address] insurance Branch approval) lactulose 2018-05 Yes [id number] 15mL Take 15 mL [facility] 10 gram/15 2-20 by mouth 3 ity of mL solution 00:00: (three) [place] 00 times Medical daily. Branch calcipotrie 2018-05 Yes [id number] Apply to [facility] ne 0.005 % 2-20 area(s) 2 ity of cream 00:00: (two) [place] 00 times Medical daily. Branch triamcinolo 2018-05 Yes [id number] Apply to [facility] ne 2-20 affected ity of acetonide 00:00: area(s) 2 [place] 0.1 % cream 00 (two) Medical times Branch daily. albuterol 2018-05 Yes [id number] 2{puff} Inhale 2 [facility] 90 2-20 Puffs ity of mcg/actuati 00:00: every 6 [place] on inhaler 00 (six) Medical hours as Branch needed for Wheezing or Shortness of Breath. Lancets 2018-05 Yes [id number] Use BID, U nivers Misc 2-20 DX E11.9 ity of 00:00: (Brand [address] Branch approval) lactulose 2018-05 Yes [id number] 15mL Take 15 mL [facility] 10 gram/15 2-20 by mouth 3 ity of mL solution 00:00: (three) [place] 00 times Medical daily. Branch calcipotrie 2018-05 Yes [id number] Apply to [facility] ne 0.005 % 2-20 area(s) 2 ity of cream 00:00: (two) [place] 00 times Medical daily. Branch triamcinolo 2018-05 Yes [id number] Apply to Univers ne 2-20 affected ity of acetonide 00:00: area(s) 2 [place] 0.1 % cream 00 (two) Medical times Branch daily. albuterol 2018-05 Yes [id number] 2{puff} Inhale 2 [facility] 90 2-20 Puffs ity of mcg/actuati 00:00: every 6 [place] on inhaler 00 (six) Medical hours as Branch needed for Wheezing or Shortness of Breath. Lancets 2018-05 Yes [id number] Use BID, U nivers Misc 2-20 DX E11.9 ity of 00:00: (Brand [address] Branch approval) lactulose 2018-05 Yes [id number] 15mL Take 15 mL [facility] 10 gram/15 2-20 by mouth 3 ity of mL solution 00:00: (three) [place] 00 times Medical daily. Branch calcipotrie 2018-05 Yes [id number] Apply to [facility] ne 0.005 % 2-20 area(s) 2 ity of cream 00:00: (two) [place] 00 times Medical daily. Branch triamcinolo 2018-05 Yes [id number] Apply to Univers ne 2-20 affected ity of acetonide 00:00: area(s) 2 [place] 0.1 % cream 00 (two) Medical times Branch daily. albuterol 2018-05 Yes [id number] 2{puff} Inhale 2 [facility] 90 2-20 Puffs ity of mcg/actuati 00:00: every 6 [place] on inhaler 00 (six) Medical hours as Branch needed for Wheezing or Shortness of Breath. Lancets 2018-05 Yes [id number] Use BID, U nivers Misc 2-20 DX E11.9 ity of 00:00: (Brand [place] 00 upon Medical insurance Branch approval) lactulose 2018-05 Yes [id number] 15mL Take 15 mL [facility] 10 gram/15 2-20 by mouth 3 ity of mL solution 00:00: (three) [place] 00 times Medical daily. Branch calcipotrie 2018-05 Yes [id number] Apply to [facility] ne 0.005 % 2-20 area(s) 2 ity of cream 00:00: (two) [place] 00 times Medical daily. Branch triamcinolo 2018-05 Yes [id number] Apply to Univers ne 2-20 affected ity of acetonide 00:00: area(s) 2 [place] 0.1 % cream 00 (two) Medical times Branch daily. furosemide 2018-05- No [id number] 40mg Take 1 [facility] 40 mg 2-20 05-19 tablet by ity of tablet 00:00: 00:00 mouth [place] 00 :00 every Medical morning Branch and evening. metFORMIN 2018-05- No [id number] 500mg Take 1 [facility] 500 mg 2-20 05-19 tablet by ity of tablet 00:00: 00:00 mouth 2 [place] 00 :00 (two) Medical times Branch daily with meals. carvedilol 2018-05- No [id number] 3.125mg Take 1 [facility] 3.125 mg 2-20 05-19 tablet by ity o f tablet 00:00: 00:00 mouth 2 [place] 00 :00 (two) Medical times Branch daily with meals. spironolact 2018-05- No [id number] 25mg Take 1 [facility] one 25 mg 2-20 05-19 tablet by ity of tablet 00:00: 00:00 mouth 2 [place] 00 :00 (two) Medical times Branch daily. rifAXIMin 2018-05- No [id number] 550mg Take 1 [facility] 550 mg 2-20 05-19 tablet by ity of tablet 00:00: 00:00 mouth 2 [place] 00 :00 (two) Medical times Branch daily. Pitavastati 2018-05- No [id number] 2mg Take 2 mg [facility] n (LIVALO) 2-20 05-19 by mouth ity of 2 mg Tab 00:00: 00:00 daily. [place] 00 :00 Medical Branch blood sugar 2018-05- No [id number] Use BID, [facility] diagnostic 2-20 05-19 DX E11.9 ity of (ACCU-CHEK 00:00: 00:00 (Brand [place] GUIDE) 00 :00 upon Medical strip insurance Branch approval) hydrOXYzine 2018-05- No [id number] 50mg Take 1 [facility] 50 mg 2-20 05-19 tablet by ity of tablet 00:00: 00:00 mouth 3 [place] 00 :00 (three) Medical times Branch daily as needed for Itching. pantoprazol 2018-05- No [id number] 40mg Take 1 [facility] e 40 mg EC 2-20 05-19 tablet by ity of tablet 00:00: 00:00 mouth [place] 00 :00 daily. Medical Branch furosemide 2018-05- No [id number] 40mg Take 1 [facility] 40 mg 2-20 05-19 tablet by ity of tablet 00:00: 00:00 mouth [place] 00 :00 every Medical morning Branch and evening. metFORMIN 2018-05- No [id number] 500mg Take 1 [facility] 500 mg 2-20 05-19 tablet by ity of tablet 00:00: 00:00 mouth 2 [place] 00 :00 (two) Medical times Branch daily with meals. carvedilol 2018-05- No [id number] 3.125mg Take 1 [facility] 3.125 mg 2-20 05-19 tablet by ity o f tablet 00:00: 00:00 mouth 2 [place] 00 :00 (two) Medical times Branch daily with meals. spironolact 2018-05- No [id number] 25mg Take 1 [facility] one 25 mg -15 10- tablet by ity of tablet 00:00: 00:00 mouth 2 [place] 00 :00 (two) Medical times Branch daily. rifAXIMin 2018-05- No [id number] 550mg Take 1 [facility] 550 mg -15 10- tablet by ity of tablet 00:00: 00:00 mouth 2 [place] 00 :00 (two) Medical times Branch daily. Pitavastati 2018-05- No [id number] 2mg Take 2 mg [facility] n (LIVALO) 07-18 by mouth ity of 2 mg Tab 00:00: 00:00 daily. [place] 00 :00 Medical Branch blood sugar 2018-05- No [id number] Use BID, [facility] diagnostic 07-18- DX E11.9 ity of (ACCU-CHEK 00:00: 00:00 (Brand [place] GUIDE) 00 :00 upon Medical strip insurance Branch approval) hydrOXYzine 2018-05- No [id number] 50mg Take 1 [facility] 50 mg -15 10- tablet by ity of tablet 00:00: 00:00 mouth 3 [place] 00 :00 (three) Medical times Branch daily as needed for Itching. pantoprazol 2018-05- No [id number] 40mg Take 1 [facility] e 40 mg EC 07-18 tablet by ity of tablet 00:00: 00:00 mouth [place] 00 :00 daily. Medical Branch lisinopril 2018-05- No [id number] 20mg Take 1 [facility] 20 mg -08-04 tablet by ity of tablet 00:00: 00:00 mouth [place] 00 :00 daily. Medical Branch foLIC acid 2018-05- No [id number] 1mg Take 1 [facility] 1 mg tablet 07-18 tablet by it y of 00:00: 00:00 mouth [place] 00 :00 daily. Medical Branch foLIC acid 2018-05- No [id number] 1mg Take 1 [facility] 1 mg tablet 07-18 tablet by it y of 00:00: 00:00 mouth [place] 00 :00 daily. Medical Branch doxycycline 2019-0 Yes [id number] 100mg Take 1 [facility] 100 mg 8-29 tablet by ity of tablet 00:00: mouth [place] (two) Medical times Branch daily. doxycycline 2019-0 Yes [id number] 100mg Take 1 [facility] 100 mg 8-29 tablet by ity of tablet 00:00: mouth [place] (two) Medical times Branch daily. doxycycline 2019-0 Yes [id number] 100mg Take 1 [facility] 100 mg 8-29 tablet by ity of tablet 00:00: mouth [place] (two) Medical times Branch daily. doxycycline 2019-0 Yes [id number] 100mg Take 1 [facility] 100 mg 8-29 tablet by ity of tablet 00:00: mouth [place] (two) Medical times Branch daily. doxycycline 2019-0 Yes [id number] 100mg Take 1 [facility] 100 mg 8-29 tablet by ity of tablet 00:00: mouth [place] (two) Medical times Branch daily. doxycycline 2019-0 Yes [id number] 100mg Take 1 [facility] 100 mg 8-29 tablet by ity of tablet 00:00: mouth [place] (two) Medical times Branch daily. doxycycline 2019-0 Yes [id number] 100mg Take 1 [facility] 100 mg 8-29 tablet by ity of tablet 00:00: mouth [place] (two) Medical times Branch daily. doxycycline 2019-0 Yes [id number] 100mg Take 1 [facility] 100 mg 8-29 tablet by ity of tablet 00:00: mouth [place] (two) Medical times Branch daily. doxycycline 2019-0 Yes [id number] 100mg Take 1 [facility] 100 mg 8-29 tablet by ity of tablet 00:00: mouth [address] [place] [address] (two) Medical times Branch daily. doxycycline 2019-0 Yes [id number] 100mg Take 1 [facility] 100 mg 8-29 tablet by ity of tablet 00:00: mouth 2 [place] (two) Medical times Branch daily. doxycycline 2018-2020- No [id number] 100mg Take 1 [facility] 100 mg 8-29 05-19 tablet by ity of tablet 00:00: 00:00 mouth 2 [place] 00 :00 (two) Medical times Branch daily. doxycycline 2018-0 2020- No [id number] 100mg Take 1 [facility] 100 mg 8-29 05-19 tablet by ity of tablet 00:00: 00:00 mouth 2 [place] 00 :00 (two) Medical times Branch daily. spironolact 2019- Yes [id number] 25mg Take 1 [facility] one 25 mg 8-07 tablet by ity o f tablet 00:00: mouth (two) Medical times Branch daily. spironolact 2018-0 Yes [id number] 25mg Take 1 [facility] one 25 mg 8-07 tablet by ity o f tablet 00:00: mouth (two) Medical times Branch daily. spironolact 2018- Yes [id number] 25mg Take 1 [facility] one 25 mg 8-07 tablet by ity o f tablet 00:00: mouth 2 (two) Medical times Branch daily. spironolact 2018- Yes [id number] 25mg Take 1 [facility] one 25 mg 8-07 tablet by ity o f tablet 00:00: mouth (two) Medical times Branch daily. spironolact Yes [id number] 25mg Take 1 [facility] one 25 mg 8-07 tablet by ity o f tablet 00:00: mouth (two) Medical times Branch daily. spironolact Yes [id number] 25mg Take 1 [facility] one 25 mg 8-07 tablet by ity o f tablet 00:00: mouth (two) Medical times Branch daily. spironolact 2018-0 Yes [id number] 25mg Take 1 [facility] one 25 mg 8-07 tablet by ity o f tablet 00:00: mouth (two) Medical times Branch daily. spironolact 2018- Yes [id number] 25mg Take 1 [facility] one 25 mg 8-07 tablet by ity o f tablet 00:00: mouth (two) Medical times Branch daily. spironolact 2018- Yes [id number] 25mg Take 1 [facility] one 25 mg 8-07 tablet by ity o f tablet 00:00: mouth (two) Medical times Branch daily. spironolact 2018-0 Yes [id number] 25mg Take 1 [facility] one 25 mg 8-07 tablet by ity o f tablet 00:00: mouth (two) Medical times Branch daily. ALPRAZolam 2018- Yes [id number] 1mg Take 1 [facility] 1 mg tablet 7-22 tablet by ity of 00:00: mouth 2 (two) Medical times Branch daily. Prn anxiety carvedilol 2018- Yes [id number] 3.125mg Take 1 [facility] 3.125 mg 7-22 tablet by ity of tablet 00:00: mouth 2 (two) Medical times Branch daily with meals. foLIC acid Yes [id number] 1mg Take 1 [facility] 1 mg tablet 7-22 tablet by ity of 00:00: mouth 00 daily. Medical Branch furosemide Yes [id number] 40mg Take 1 [facility] 40 mg 7-22 tablet by ity of tablet 00:00: mouth 00 daily. Medical Branch hydrOXYzine Yes [id number] 50mg Take 1 [facility] 50 mg 7-22 tablet by ity of tablet 00:00: mouth 3 (three) Medical times Branch daily as needed for Itching. metFORMIN Yes [id number] 500mg Take 1 [facility] 500 mg 7-22 tablet by ity of tablet 00:00: mouth 2 (two) Medical times Branch daily with meals. pantoprazol Yes [id number] 40mg Take 1 [facility] e 40 mg EC 7-22 tablet by ity of tablet 00:00: mouth 00 daily. Medical Branch clobetasol Yes [id number] Apply to [facility] 0.05 % 7-22 area(s) 2 ity of cream 00:00: (two) times Medical daily. Branch triamcinolo Yes [id number] Apply to [facility] ne 7-22 affected ity of acetonide 00:00: area(s) 2 [place] 0.1 % cream 00 (two) Medical times Branch daily. ALPRAZolam Yes [id number] 1mg Take 1 [facility] 1 mg tablet 7-22 tablet by ity of 00:00: mouth 2 (two) Medical times Branch daily. Prn anxiety carvedilol Yes [id number] 3.125mg Take 1 [facility] 3.125 mg 7-22 tablet by ity of tablet 00:00: mouth 2 (two) Medical times Branch daily with meals. foLIC acid Yes [id number] 1mg Take 1 [facility] 1 mg tablet 7-22 tablet by ity of 00:00: mouth 00 daily. Medical Branch furosemide Yes [id number] 40mg Take 1 [facility] 40 mg 7-22 tablet by ity of tablet 00:00: mouth [place] 00 daily. Medical Branch hydrOXYzine 2019-0 Yes [id number] 50mg Take 1 [facility] 50 mg 7-22 tablet by ity of tablet 00:00: mouth 3 (three) Medical times Branch daily as needed for Itching. metFORMIN 2018- Yes [id number] 500mg Take 1 [facility] 500 mg 7-22 tablet by ity of tablet 00:00: mouth 2 (two) Medical times Branch daily with meals. pantoprazol 2019- Yes [id number] 40mg Take 1 [facility] e 40 mg EC 7-22 tablet by ity of tablet 00:00: mouth 00 daily. Medical Branch clobetasol 2018-0 Yes [id number] Apply to [facility] 0.05 % 7-22 area(s) 2 ity of cream 00:00: (two) [place] 00 times Medical daily. Branch triamcinolo 2018- Yes [id number] Apply to [facility] ne 7-22 affected ity of acetonide 00:00: area(s) 2 [place] 0.1 % cream 00 (two) Medical times Branch daily. ALPRAZolam 2018- Yes [id number] 1mg Take 1 [facility] 1 mg tablet 7-22 tablet by ity of 00:00: mouth 2 (two) Medical times Branch daily. Prn anxiety carvedilol 2018-0 Yes [id number] 3.125mg Take 1 [facility] 3.125 mg 7-22 tablet by ity of tablet 00:00: mouth 2 (two) Medical times Branch daily with meals. foLIC acid 2018-0 Yes [id number] 1mg Take 1 [facility] 1 mg tablet 7-22 tablet by ity of 00:00: mouth [place] 00 daily. Medical Branch furosemide 2019-0 Yes [id number] 40mg Take 1 [facility] 40 mg 7-22 tablet by ity of tablet 00:00: mouth 00 daily. Medical Branch hydrOXYzine 2018-0 Yes [id number] 50mg Take 1 [facility] 50 mg 7-22 tablet by ity of tablet 00:00: mouth 3 00 (three) Medical times Branch daily as needed for Itching. metFORMIN 2018- Yes [id number] 500mg Take 1 [facility] 500 mg 7-22 tablet by ity of tablet 00:00: mouth 2 (two) Medical times Branch daily with meals. pantoprazol 2019 Yes [id number] 40mg Take 1 [facility] e 40 mg EC 7-22 tablet by ity of tablet 00:00: mouth 00 daily. Medical Branch clobetasol Yes [id number] Apply to [facility] 0.05 % 7-22 area(s) 2 ity of cream 00:00: (two) [place] 00 times Medical daily. Branch triamcinolo Yes [id number] Apply to [facility] ne 7-22 affected ity of acetonide 00:00: area(s) 2 [place] 0.1 % cream 00 (two) Medical times Branch daily. ALPRAZolam 2018- Yes [id number] 1mg Take 1 [facility] 1 mg tablet 7-22 tablet by ity of 00:00: mouth 2 (two) Medical times Branch daily. Prn anxiety carvedilol 2018- Yes [id number] 3.125mg Take 1 [facility] 3.125 mg 7-22 tablet by ity of tablet 00:00: mouth 2 (two) Medical times Branch daily with meals. foLIC acid 2018- Yes [id number] 1mg Take 1 [facility] 1 mg tablet 7-22 tablet by ity of 00:00: mouth 00 daily. Medical Branch furosemide 2018-0 Yes [id number] 40mg Take 1 [facility] 40 mg 7-22 tablet by ity of tablet 00:00: mouth 00 daily. Medical Branch hydrOXYzine Yes [id number] 50mg Take 1 [facility] 50 mg 7-22 tablet by ity of tablet 00:00: mouth 3 (three) Medical times Branch daily as needed for Itching. metFORMIN 2018- Yes [id number] 500mg Take 1 [facility] 500 mg 7-22 tablet by ity of tablet 00:00: mouth 2 (two) Medical times Branch daily with meals. pantoprazol 2018- Yes [id number] 40mg Take 1 [facility] e 40 mg EC 7-22 tablet by ity of tablet 00:00: mouth 00 daily. Medical Branch clobetasol Yes [id number] Apply to [facility] 0.05 % 7-22 area(s) 2 ity of cream 00:00: (two) [place] 00 times Medical daily. Branch triamcinolo Yes [id number] Apply to [facility] ne 7-22 affected ity of acetonide 00:00: area(s) 2 [place] 0.1 % cream 00 (two) Medical times Branch daily. ALPRAZolam Yes [id number] 1mg Take 1 [facility] 1 mg tablet 7-22 tablet by ity of 00:00: mouth 2 [place] (two) Medical times Branch daily. Prn anxiety carvedilol Yes [id number] 3.125mg Take 1 [facility] 3.125 mg 7-22 tablet by ity of tablet 00:00: mouth 2 (two) Medical times Branch daily with meals. foLIC acid Yes [id number] 1mg Take 1 [facility] 1 mg tablet 7-22 tablet by ity of 00:00: mouth 00 daily. Medical Branch hydrOXYzine Yes [id number] 50mg Take 1 [facility] 50 mg 7-22 tablet by ity of tablet 00:00: mouth 3 (three) Medical times Branch daily as needed for Itching. metFORMIN Yes [id number] 500mg Take 1 [facility] 500 mg 7-22 tablet by ity of tablet 00:00: mouth 2 (two) Medical times Branch daily with meals. pantoprazol Yes [id number] 40mg Take 1 [facility] e 40 mg EC 7-22 tablet by ity of tablet 00:00: mouth [place] 00 daily. Medical Branch clobetasol Yes [id number] Apply to [facility] 0.05 % 7-22 area(s) 2 ity of cream 00:00: (two) [place] 00 times Medical daily. Branch triamcinolo Yes [id number] Apply to [facility] ne 7-22 affected ity of acetonide 00:00: area(s) 2 [place] 0.1 % cream 00 (two) Medical times Branch daily. ALPRAZolam Yes [id number] 1mg Take 1 [facility] 1 mg tablet 7-22 tablet by ity of 00:00: mouth 2 [place] (two) Medical times Branch daily. Prn anxiety carvedilol Yes [id number] 3.125mg Take 1 [facility] 3.125 mg 7-22 tablet by ity of tablet 00:00: mouth 2 (two) Medical times Branch daily with meals. foLIC acid 2018- Yes [id number] 1mg Take 1 [facility] 1 mg tablet 7-22 tablet by ity of 00:00: mouth [place] 00 daily. Medical Branch hydrOXYzine 2018- Yes [id number] 50mg Take 1 [facility] 50 mg 7-22 tablet by ity of tablet 00:00: mouth 3 (three) Medical times Branch daily as needed for Itching. metFORMIN 2018- Yes [id number] 500mg Take 1 [facility] 500 mg 7-22 tablet by ity of tablet 00:00: mouth 2 (two) Medical times Branch daily with meals. pantoprazol 2018- Yes [id number] 40mg Take 1 [facility] e 40 mg EC 7-22 tablet by ity of tablet 00:00: mouth 00 daily. Medical Branch clobetasol Yes [id number] Apply to [facility] 0.05 % 7-22 area(s) 2 ity of cream 00:00: (two) 00 times Medical daily. Branch triamcinolo Yes [id number] Apply to [facility] ne 7-22 affected ity of acetonide 00:00: area(s) 2 [place] 0.1 % cream 00 (two) Medical times Branch daily. ALPRAZolam Yes [id number] 1mg Take 1 [facility] 1 mg tablet 7-22 tablet by ity of 00:00: mouth 2 (two) Medical times Branch daily. Prn anxiety carvedilol 2018- Yes [id number] 3.125mg Take 1 [facility] 3.125 mg 7-22 tablet by ity of tablet 00:00: mouth 2 (two) Medical times Branch daily with meals. foLIC acid 2018- Yes [id number] 1mg Take 1 [facility] 1 mg tablet 7-22 tablet by ity of 00:00: mouth 00 daily. Medical Branch hydrOXYzine 2018- Yes [id number] 50mg Take 1 [facility] 50 mg 7-22 tablet by ity of tablet 00:00: mouth 3 (three) Medical times Branch daily as needed for Itching. metFORMIN 2018- Yes [id number] 500mg Take 1 [facility] 500 mg 7-22 tablet by ity of tablet 00:00: mouth 2 (two) Medical times Branch daily with meals. pantoprazol 2018-0 Yes [id number] 40mg Take 1 [facility] e 40 mg EC 7-22 tablet by ity of tablet 00:00: mouth [place] 00 daily. Medical Branch clobetasol Yes [id number] Apply to [facility] 0.05 % 7-22 area(s) 2 ity of cream 00:00: (two) [place] 00 times Medical daily. Branch triamcinolo Yes [id number] Apply to [facility] ne 7-22 affected ity of acetonide 00:00: area(s) 2 [place] 0.1 % cream 00 (two) Medical times Branch daily. ALPRAZolam Yes [id number] 1mg Take 1 [facility] 1 mg tablet 7-22 tablet by ity of 00:00: mouth 2 [place] (two) Medical times Branch daily. Prn anxiety carvedilol 2018- Yes [id number] 3.125mg Take 1 [facility] 3.125 mg 7-22 tablet by ity of tablet 00:00: mouth 2 (two) Medical times Branch daily with meals. foLIC acid Yes [id number] 1mg Take 1 [facility] 1 mg tablet 7-22 tablet by ity of 00:00: mouth 00 daily. Medical Branch hydrOXYzine Yes [id number] 50mg Take 1 [facility] 50 mg 7-22 tablet by ity of tablet 00:00: mouth 3 00 (three) Medical times Branch daily as needed for Itching. metFORMIN Yes [id number] 500mg Take 1 [facility] 500 mg 7-22 tablet by ity of tablet 00:00: mouth 2 (two) Medical times Branch daily with meals. pantoprazol Yes [id number] 40mg Take 1 [facility] e 40 mg EC 7-22 tablet by ity of tablet 00:00: mouth [place] 00 daily. Medical Branch clobetasol Yes [id number] Apply to [facility] 0.05 % 7-22 area(s) 2 ity of cream 00:00: (two) [place] 00 times Medical daily. Branch triamcinolo Yes [id number] Apply to [facility] ne 7-22 affected ity of acetonide 00:00: area(s) 2 [place] 0.1 % cream 00 (two) Medical times Branch daily. ALPRAZolam Yes [id number] 1mg Take 1 [facility] 1 mg tablet 7-22 tablet by ity of 00:00: mouth 2 (two) Medical times Branch daily. Prn anxiety carvedilol Yes [id number] 3.125mg Take 1 [facility] 3.125 mg 7-22 tablet by ity of tablet 00:00: mouth 2 (two) Medical times Branch daily with meals. foLIC acid Yes [id number] 1mg Take 1 [facility] 1 mg tablet 7-22 tablet by ity of 00:00: mouth 00 daily. Medical Branch hydrOXYzine Yes [id number] 50mg Take 1 [facility] 50 mg 7-22 tablet by ity of tablet 00:00: mouth 3 (three) Medical times Branch daily as needed for Itching. metFORMIN Yes [id number] 500mg Take 1 [facility] 500 mg 7-22 tablet by ity of tablet 00:00: mouth 2 (two) Medical times Branch daily with meals. pantoprazol Yes [id number] 40mg Take 1 [facility] e 40 mg EC 7-22 tablet by ity of tablet 00:00: mouth 00 daily. Medical Branch clobetasol Yes [id number] Apply to [facility] 0.05 % 7-22 area(s) 2 ity of cream 00:00: (two) times Medical daily. Branch triamcinolo Yes [id number] Apply to [facility] ne 7-22 affected ity of acetonide 00:00: area(s) 2 [place] 0.1 % cream 00 (two) Medical times Branch daily. ALPRAZolam Yes [id number] 1mg Take 1 [facility] 1 mg tablet 7-22 tablet by ity of 00:00: mouth 2 (two) Medical times Branch daily. Prn anxiety carvedilol 2018- Yes [id number] 3.125mg Take 1 [facility] 3.125 mg 7-22 tablet by ity of tablet 00:00: mouth 2 (two) Medical times Branch daily with meals. foLIC acid Yes [id number] 1mg Take 1 [facility] 1 mg tablet 7-22 tablet by ity of 00:00: mouth 00 daily. Medical Branch hydrOXYzine Yes [id number] 50mg Take 1 [facility] 50 mg 7-22 tablet by ity of tablet 00:00: mouth 3 (three) Medical times Branch daily as needed for Itching. metFORMIN 2019- Yes [id number] 500mg Take 1 [facility] 500 mg 7-22 tablet by ity of tablet 00:00: mouth 2 (two) Medical times Branch daily with meals. pantoprazol 2018- Yes [id number] 40mg Take 1 [facility] e 40 mg EC 7-22 tablet by ity of tablet 00:00: mouth [place] 00 daily. Medical Branch clobetasol 2018- Yes [id number] Apply to [facility] 0.05 % 7-22 area(s) 2 ity of cream 00:00: (two) [place] 00 times Medical daily. Branch triamcinolo Yes [id number] Apply to [facility] ne 7-22 affected ity of acetonide 00:00: area(s) 2 [place] 0.1 % cream 00 (two) Medical times Branch daily. ALPRAZolam 2018- Yes [id number] 1mg Take 1 [facility] 1 mg tablet 7-22 tablet by ity of 00:00: mouth 2 (two) Medical times Branch daily. Prn anxiety carvedilol 2018- Yes [id number] 3.125mg Take 1 [facility] 3.125 mg 7-22 tablet by ity of tablet 00:00: mouth 2 (two) Medical times Branch daily with meals. foLIC acid 2018-0 Yes [id number] 1mg Take 1 [facility] 1 mg tablet 7-22 tablet by ity of 00:00: mouth 00 daily. Medical Branch hydrOXYzine 2018-0 Yes [id number] 50mg Take 1 [facility] 50 mg 7-22 tablet by ity of tablet 00:00: mouth 3 (three) Medical times Branch daily as needed for Itching. metFORMIN 2018- Yes [id number] 500mg Take 1 [facility] 500 mg 7-22 tablet by ity of tablet 00:00: mouth 2 (two) Medical times Branch daily with meals. pantoprazol 2018- Yes [id number] 40mg Take 1 [facility] e 40 mg EC 7-22 tablet by ity of tablet 00:00: mouth [place] 00 daily. Medical Branch clobetasol 2018- Yes [id number] Apply to [facility] 0.05 % 7-22 area(s) 2 ity of cream 00:00: (two) [place] 00 times Medical daily. Branch triamcinolo Yes [id number] Apply to [facility] ne 7-22 affected ity of acetonide 00:00: area(s) 2 [place] 0.1 % cream 00 (two) Medical times Branch daily. ALPRAZolam Yes [id number] 1mg Take 1 [facility] 1 mg tablet 7-22 tablet by ity of 00:00: mouth 2 [place] 00 (two) Medical times Branch daily. Prn anxiety carvedilol Yes [id number] 3.125mg Take 1 [facility] 3.125 mg 7-22 tablet by ity of tablet 00:00: mouth 2 (two) Medical times Branch daily with meals. foLIC acid Yes [id number] 1mg Take 1 [facility] 1 mg tablet 7-22 tablet by ity of 00:00: mouth [place] 00 daily. Medical Branch hydrOXYzine Yes [id number] 50mg Take 1 [facility] 50 mg 7-22 tablet by ity of tablet 00:00: mouth 3 (three) Medical times Branch daily as needed for Itching. metFORMIN Yes [id number] 500mg Take 1 [facility] 500 mg 7-22 tablet by ity of tablet 00:00: mouth 2 (two) Medical times Branch daily with meals. pantoprazol Yes [id number] 40mg Take 1 [facility] e 40 mg EC 7-22 tablet by ity of tablet 00:00: mouth [place] 00 daily. Medical Branch clobetasol Yes [id number] Apply to [facility] 0.05 % 7-22 area(s) 2 ity of cream 00:00: (two) [place] 00 times Medical daily. Branch triamcinolo Yes [id number] Apply to [facility] ne 7-22 affected ity of acetonide 00:00: area(s) 2 [place] 0.1 % cream 00 (two) Medical times Branch daily. ALPRAZolam Yes [id number] 1mg Take 1 [facility] 1 mg tablet 7-22 tablet by ity of 00:00: mouth 2 [place] 00 (two) Medical times Branch daily. Prn anxiety carvedilol Yes [id number] 3.125mg Take 1 [facility] 3.125 mg 7-22 tablet by ity of tablet 00:00: mouth 2 [place] 00 (two) Medical times Branch daily with meals. foLIC acid Yes [id number] 1mg Take 1 [facility] 1 mg tablet 7-22 tablet by ity of 00:00: mouth [place] 00 daily. Medical Branch furosemide Yes [id number] 40mg Take 1 [facility] 40 mg 7-22 tablet by ity of tablet 00:00: mouth [place] 00 daily. Medical Branch hydrOXYzine Yes [id number] 50mg Take 1 [facility] 50 mg 7-22 tablet by ity of tablet 00:00: mouth 3 [place] 00 (three) Medical times Branch daily as needed for Itching. metFORMIN Yes [id number] 500mg Take 1 [facility] 500 mg 7-22 tablet by ity of tablet 00:00: mouth 2 [place] 00 (two) Medical times Branch daily with meals. pantoprazol Yes [id number] 40mg Take 1 [facility] e 40 mg EC 7-22 tablet by ity of tablet 00:00: mouth [place] 00 daily. Medical Branch spironolact Yes [id number] 25mg Take 1 [facility] one 25 mg 7-22 tablet by ity o f tablet 00:00: mouth 2 [place] 00 (two) Medical times Branch daily. clobetasol Yes [id number] Apply to [facility] 0.05 % 7-22 area(s) 2 ity of cream 00:00: (two) [place] 00 times Medical daily. Branch triamcinolo Yes [id number] Apply to [facility] ne 7-22 affected ity of acetonide 00:00: area(s) 2 [place] 0.1 % cream 00 (two) Medical times Branch daily. furosemide 2019- No [id number] 40mg Take 1 [facility] 40 mg 7-22 08-26 tablet by ity of tablet 00:00: 00:00 mouth [place] 00 :00 daily. Medical Branch furosemide 2019- No [id number] 40mg Take 1 [facility] 40 mg 7-22 08-26 tablet by ity of tablet 00:00: 00:00 mouth [place] 00 :00 daily. Medical Branch spironolact 2019- No [id number] 25mg Take 1 [facility] one 25 mg 7-22 08-07 tablet by ity of tablet 00:00: 00:00 mouth 2 [place] 00 :00 (two) Medical times Branch daily. Pitavastati 0 Yes 2mg Take 2 mg U nivers n (LIVALO) 6-18 by mouth ity o f 2 mg Tab 16:18: daily. [address] Branch Pitavastati 0 Yes 2mg Take 2 mg U nivers n (LIVALO) 6-18 by mouth ity o f 2 mg Tab 16:18: daily. [address] Branch Pitavastati 0 Yes 2mg Take 2 mg U nivers n (LIVALO) 6-18 by mouth ity o f 2 mg Tab 16:18: daily. [address] Branch Pitavastati 0 Yes 2mg Take 2 mg U nivers n (LIVALO) 6-18 by mouth ity o f 2 mg Tab 16:18: daily. [address] Branch Pitavastati 0 Yes 2mg Take 2 mg U nivers n (LIVALO) 6-18 by mouth ity o f 2 mg Tab 16:18: daily. [address] Branch Pitavastati 0 Yes 2mg Take 2 mg U nivers n (LIVALO) 6-18 by mouth ity o f 2 mg Tab 16:18: daily. [address] Branch Pitavastati 0 Yes 2mg Take 2 mg U nivers n (LIVALO) 6-18 by mouth ity o f 2 mg Tab 16:18: daily. [address] Branch Pitavastati 0 Yes 2mg Take 2 mg U nivers n (LIVALO) 6-18 by mouth ity o f 2 mg Tab 16:18: daily. [address] Branch Pitavastati 0 Yes 2mg Take 2 mg U nivers n (LIVALO) 6-18 by mouth ity o f 2 mg Tab 16:18: daily. [address] Branch Pitavastati 0 Yes 2mg Take 2 mg U nivers n (LIVALO) 6-18 by mouth ity o f 2 mg Tab 16:18: daily. [address] Branch Pitavastati 0 Yes 2mg Take 2 mg U nivers n (LIVALO) 6-18 by mouth ity o f 2 mg Tab 16:18: daily. [address] Branch Pitavastati 0 Yes 2mg Take 2 mg U nivers n (LIVALO) 6-18 by mouth ity o f 2 mg Tab 16:18: daily. [place] [address] Medical Branch Pitavastati 2019-0 Yes 2mg Take 2 mg U nivers n (LIVALO) 6-18 by mouth ity o f 2 mg Tab 16:18: daily. [address] Branch traMADOL 2019-0 Yes [id number] 50mg Take 1 Un epifanio (ULTRAM) 50 6-18 tablet by ity of mg tablet 00:00: mouth [place] 00 every 6 Medical (six) Branch hours as needed for Pain (scale 4-6). traMADOL 2019-0 Yes [id number] 50mg Take 1 Un epifanio (ULTRAM) 50 6-18 tablet by ity of mg tablet 00:00: mouth [place] 00 every 6 Medical (six) Branch hours as needed for Pain (scale 4-6). traMADOL 2019-0 Yes [id number] 50mg Take 1 Un epifanio (ULTRAM) 50 6-18 tablet by ity of mg tablet 00:00: mouth [place] 00 every 6 Medical (six) Branch hours as needed for Pain (scale 4-6). traMADOL 2019-0 Yes [id number] 50mg Take 1 Un epifanio (ULTRAM) 50 6-18 tablet by ity of mg tablet 00:00: mouth [place] 00 every 6 Medical (six) Branch hours as needed for Pain (scale 4-6). traMADOL 2019-0 Yes [id number] 50mg Take 1 Un epifanio (ULTRAM) 50 6-18 tablet by ity of mg tablet 00:00: mouth [place] 00 every 6 Medical (six) Branch hours as needed for Pain (scale 4-6). traMADOL 2019-0 Yes [id number] 50mg Take 1 Un epifanio (ULTRAM) 50 6-18 tablet by ity of mg tablet 00:00: mouth [place] 00 every 6 Medical (six) Branch hours as needed for Pain (scale 4-6). traMADOL 2019-0 Yes [id number] 50mg Take 1 Un epifanio (ULTRAM) 50 6-18 tablet by ity of mg tablet 00:00: mouth [place] 00 every 6 Medical (six) Branch hours as needed for Pain (scale 4-6). traMADOL 2019-0 Yes [id number] 50mg Take 1 Un epifanio (ULTRAM) 50 6-18 tablet by ity of mg tablet 00:00: mouth [place] 00 every 6 Medical (six) Branch hours as needed for Pain (scale 4-6). traMADOL 2019-0 Yes [id number] 50mg Take 1 Un epifanio (ULTRAM) 50 6-18 tablet by ity of mg tablet 00:00: mouth [place] 00 every 6 Medical (six) Branch hours as needed for Pain (scale 4-6). traMADOL 2019-0 Yes [id number] 50mg Take 1 Un epifanio (ULTRAM) 50 6-18 tablet by ity of mg tablet 00:00: mouth [place] 00 every 6 Medical (six) Branch hours as needed for Pain (scale 4-6). traMADOL 2019-0 Yes [id number] 50mg Take 1 Un epifanio (ULTRAM) 50 6-18 tablet by ity of mg tablet 00:00: mouth [place] 00 every 6 Medical (six) Branch hours as needed for Pain (scale 4-6). traMADOL 2019-0 Yes [id number] 50mg Take 1 Un epifanio (ULTRAM) 50 6-18 tablet by ity of mg tablet 00:00: mouth [place] 00 every 6 Medical (six) Branch hours as needed for Pain (scale 4-6). traMADOL 2019-0 Yes [id number] 50mg Take 1 Un epifanio (ULTRAM) 50 6-18 tablet by ity of mg tablet 00:00: mouth [place] 00 every 6 Medical (six) Branch hours as needed for Pain (scale 4-6). traMADOL 2019-0 Yes [id number] 50mg Take 1 Un epifanio (ULTRAM) 50 6-18 tablet by ity of mg tablet 00:00: mouth [place] 00 every 6 Medical (six) Branch hours as needed for Pain (scale 4-6). traMADOL 2019-0 Yes [id number] 50mg Take 1 Un epifanio (ULTRAM) 50 6-18 tablet by ity of mg tablet 00:00: mouth [place] 00 every 6 Medical (six) Branch hours as needed for Pain (scale 4-6). traMADOL 2019-0 Yes [id number] 50mg Take 1 Un epifanio (ULTRAM) 50 6-18 tablet by ity of mg tablet 00:00: mouth [place] 00 every 6 Medical (six) Branch hours as needed for Pain (scale 4-6). traMADOL 2019-0 Yes [id number] 50mg Take 1 Un epifanio (ULTRAM) 50 6-18 tablet by ity of mg tablet 00:00: mouth [place] 00 every 6 Medical (six) Branch hours as needed for Pain (scale 4-6). traMADOL Yes [id number] 50mg Take 1 Un epifanio (ULTRAM) 50 6-18 tablet by ity of mg tablet 00:00: mouth [place] 00 every 6 Medical (six) Branch hours as needed for Pain (scale 4-6). traMADOL Yes [id number] 50mg Take 1 Un epifanio (ULTRAM) 50 6-18 tablet by ity of mg tablet 00:00: mouth [place] 00 every 6 Medical (six) Branch hours as needed for Pain (scale 4-6). traMADOL Yes [id number] 50mg Take 1 Un epifanio (ULTRAM) 50 6-18 tablet by ity of mg tablet 00:00: mouth [place] 00 every 6 Medical (six) Branch hours as needed for Pain (scale 4-6). traMADOL 2020- No [id number] 50mg Take 1 U nivers (ULTRAM) 50 6-18 05-19 tablet by it y of mg tablet 00:00: 00:00 mouth [place] 00 :00 every 6 Medical (six) Branch hours as needed for Pain (scale 4-6). traMADOL 2020- No [id number] 50mg Take 1 U nivers (ULTRAM) 50 6-18 05-19 tablet by it y of mg tablet 00:00: 00:00 mouth [place] 00 :00 every 6 Medical (six) Branch hours as needed for Pain (scale 4-6). folic acid Yes 1mg QD Take [address] [facility] (FOLVITE) 1 6-13 by mouth [facility] tablet 00:00: daily . Medic al [place] folic acid Yes 1mg QD Take [address] [facility] (FOLVITE) 1 6-13 by [facility] tablet 00:00: daily . Medic al [place] lactulose Yes TK [address] [facility] (CHRONULAC) 5-04 PO TID [facility] gram/15 00:00: Medical mL solution 00 [place] lactulose 2019-0 Yes TK [address] [facility] (CHRONULAC) 5-04 PO TID [facility] gram/15 00:00: Medical mL solution 00 Center blood sugar 2019-0 Yes [id number] Use BID, [facility] diagnostic 4-23 DX E11.9 ity o f (ACCU-CHEK 00:00: (Brand [place] GUIDE) 00 upon Medical strip insurance Branch approval) Lancets 2019- Yes [id number] Use BID, U nivers Misc 4-23 DX E11.9 ity of 00:00: (Brand [place] 00 upon Medical insurance Branch approval) Blood-Gluco 2019- Yes [id number] Use BID, [facility] se Meter -23 DX E11.9 ity of (ACCU-CHEK 00:00: (Brand [place] GUIDE 00 upon Medical GLUCOSE insurance Branch METER) Misc approval) ACCU-CHEK GUIDE blood sugar 2018-0 Yes [id number] Use BID, [facility] diagnostic -23 DX E11.9 ity o f (ACCU-CHEK 00:00: (Brand [place] GUIDE) 00 upon Medical strip insurance Branch approval) Lancets 2019 Yes [id number] Use BID, U nivers Misc -23 DX E11.9 ity of 00:00: (Brand [place] 00 upon Medical insurance Branch approval) Blood-Gluco 2019- Yes [id number] Use BID, [facility] se Meter -23 DX E11.9 ity of (ACCU-CHEK 00:00: (Brand [place] GUIDE 00 upon Medical GLUCOSE insurance Branch METER) Misc approval) ACCU-CHEK GUIDE blood sugar 2019-0 Yes [id number] Use BID, [facility] diagnostic 4-23 DX E11.9 ity o f (ACCU-CHEK 00:00: (Brand [place] GUIDE) 00 upon Medical strip insurance Branch approval) Lancets 2019- Yes [id number] Use BID, U nivers Misc 4-23 DX E11.9 ity of 00:00: (Brand [place] 00 upon Medical insurance Branch approval) Blood-Gluco 2019-0 Yes [id number] Use BID, Univers se Meter 4-23 DX E11.9 ity of (ACCU-CHEK 00:00: (Brand [place] GUIDE 00 upon Medical GLUCOSE insurance Branch METER) Misc approval) ACCU-CHEK GUIDE blood sugar 2019- Yes [id number] Use BID, [facility] diagnostic 4-23 DX E11.9 ity o f (ACCU-CHEK 00:00: (Brand [place] GUIDE) 00 upon Medical strip insurance Branch approval) Lancets 2019- Yes [id number] Use BID, U nivers Misc -23 DX E11.9 ity of 00:00: (Brand [place] 00 upon Medical insurance Branch approval) Blood-Gluco 2019- Yes [id number] Use BID, Univers se Meter 423 DX E11.9 ity of (ACCU-CHEK 00:00: (Brand [place] GUIDE 00 upon Medical GLUCOSE insurance Branch METER) Misc approval) ACCU-CHEK GUIDE blood sugar 2019- Yes [id number] Use BID, [facility] diagnostic -23 DX E11.9 ity o f (ACCU-CHEK 00:00: (Brand [place] GUIDE) 00 upon Medical strip insurance Branch approval) Lancets 2019 Yes [id number] Use BID, U nivers Misc 09-18 DX E11.9 ity of 00:00: (Brand [place] 00 upon Medical insurance Branch approval) Blood-Gluco 2019- Yes [id number] Use BID, [facility] se Meter 09-18 DX E11.9 ity of (ACCU-CHEK 00:00: (Brand [place] GUIDE 00 upon Medical GLUCOSE insurance Branch METER) Misc approval) ACCU-CHEK GUIDE blood sugar 2019- Yes [id number] Use BID, [facility] diagnostic - DX E11.9 ity o f (ACCU-CHEK 00:00: (Brand [place] GUIDE) 00 upon Medical strip insurance Branch approval) Lancets 2019- Yes [id number] Use BID, U nivers Misc 09-18 DX E11.9 ity of 00:00: (Brand [place] 00 upon Medical insurance Branch approval) Blood-Gluco 2019- Yes [id number] Use BID, [facility] se Meter 423 DX E11.9 ity of (ACCU-CHEK 00:00: (Brand [place] GUIDE 00 upon Medical GLUCOSE insurance Branch METER) Misc approval) ACCU-CHEK GUIDE blood sugar 2019- Yes [id number] Use BID, [facility] diagnostic 4-23 DX E11.9 ity o f (ACCU-CHEK 00:00: (Brand [place] GUIDE) 00 upon Medical strip insurance Branch approval) Lancets 2019- Yes [id number] Use BID, U nivers Misc 4-23 DX E11.9 ity of 00:00: (Brand [place] 00 upon Medical insurance Branch approval) Blood-Gluco 2019- Yes [id number] Use BID, Univers se Meter 4-23 DX E11.9 ity of (ACCU-CHEK 00:00: (Brand [place] GUIDE 00 upon Medical GLUCOSE insurance Branch METER) Misc approval) ACCU-CHEK GUIDE blood sugar 2019- Yes [id number] Use BID, [facility] diagnostic 4-23 DX E11.9 ity o f (ACCU-CHEK 00:00: (Brand [place] GUIDE) 00 upon Medical strip insurance Branch approval) Lancets 2019- Yes [id number] Use BID, U nivers Misc 4-23 DX E11.9 ity of 00:00: (Brand [place] 00 upon Medical insurance Branch approval) Blood-Gluco 2018- Yes [id number] Use BID, [facility] se Meter 423 DX E11.9 ity of (ACCU-CHEK 00:00: (Brand [place] GUIDE 00 upon Medical GLUCOSE insurance Branch METER) Misc approval) ACCU-CHEK GUIDE blood sugar 2018- Yes [id number] Use BID, Univers diagnostic 4-23 DX E11.9 ity o f (ACCU-CHEK 00:00: (Brand [place] GUIDE) 00 upon Medical strip insurance Branch approval) Lancets 2019- Yes [id number] Use BID, U nivers Misc 4-23 DX E11.9 ity of 00:00: (Brand [place] 00 upon Medical insurance Branch approval) Blood-Gluco 2019- Yes [id number] Use BID, Univers se Meter 4-23 DX E11.9 ity of (ACCU-CHEK 00:00: (Brand [place] GUIDE 00 upon Medical GLUCOSE insurance Branch METER) Misc approval) ACCU-CHEK GUIDE blood sugar 2019- Yes [id number] Use BID, Univers diagnostic 4-23 DX E11.9 ity o f (ACCU-CHEK 00:00: (Brand [place] GUIDE) 00 upon Medical strip insurance Branch approval) Lancets 2019- Yes [id number] Use BID, U nivers Misc 4-23 DX E11.9 ity of 00:00: (Brand [place] 00 upon Medical insurance Branch approval) Blood-Gluco 2019- Yes [id number] Use BID, Univers se Meter 4-23 DX E11.9 ity of (ACCU-CHEK 00:00: (Brand [place] GUIDE 00 upon Medical GLUCOSE insurance Branch METER) Misc approval) ACCU-CHEK GUIDE blood sugar 2018- Yes [id number] Use BID, Univers diagnostic 4-23 DX E11.9 ity o f (ACCU-CHEK 00:00: (Brand [place] GUIDE) 00 upon Medical strip insurance Branch approval) Lancets 2019- Yes [id number] Use BID, U nivers Misc -23 DX E11.9 ity of 00:00: (Brand [place] 00 upon Medical insurance Branch approval) Blood-Gluco 2018- Yes [id number] Use BID, Univers se Meter -23 DX E11.9 ity of (ACCU-CHEK 00:00: (Brand [place] GUIDE 00 upon Medical GLUCOSE insurance Branch METER) Misc approval) ACCU-CHEK GUIDE Blood-Gluco 2018- Yes [id number] Use BID, Univers se Meter -23 DX E11.9 ity of (ACCU-CHEK 00:00: (Brand [place] GUIDE 00 upon Medical GLUCOSE insurance Branch METER) Misc approval) ACCU-CHEK GUIDE Blood-Gluco 2018- Yes [id number] Use BID, Univers se Meter -23 DX E11.9 ity of (ACCU-CHEK 00:00: (Brand [place] GUIDE 00 upon Medical GLUCOSE insurance Branch METER) Misc approval) ACCU-CHEK GUIDE Blood-Gluco 2018- Yes [id number] Use BID, Univers se Meter -23 DX E11.9 ity of (ACCU-CHEK 00:00: (Brand [place] GUIDE 00 upon Medical GLUCOSE insurance Branch METER) Misc approval) ACCU-CHEK GUIDE Blood-Gluco 2018- Yes [id number] Use BID, Univers se Meter -23 DX E11.9 ity of (ACCU-CHEK 00:00: (Brand [place] GUIDE 00 upon Medical GLUCOSE insurance Branch METER) Misc approval) ACCU-CHEK GUIDE Blood-Gluco 2018- Yes [id number] Use BID, Univers se Meter -23 DX E11.9 ity of (ACCU-CHEK 00:00: (Brand [place] GUIDE 00 upon Medical GLUCOSE insurance Branch METER) Misc approval) ACCU-CHEK GUIDE Blood-Gluco 2018-0 Yes [id number] Use BID, Univers se Meter -23 DX E11.9 ity of (ACCU-CHEK 00:00: (Brand [place] GUIDE 00 upon Medical GLUCOSE insurance Branch METER) Misc approval) ACCU-CHEK GUIDE Blood-Gluco Yes [id number] Use BID, Univers se Meter -23 DX E11.9 ity of (ACCU-CHEK 00:00: (Brand [place] GUIDE 00 upon Medical GLUCOSE insurance Branch METER) Misc approval) ACCU-CHEK GUIDE Blood-Gluco Yes [id number] Use BID, Univers se Meter 23 DX E11.9 ity of (ACCU-CHEK 00:00: (Brand [place] GUIDE 00 upon Medical GLUCOSE insurance Branch METER) Misc approval) ACCU-CHEK GUIDE blood sugar Yes [id number] Use BID, Univers diagnostic 23 DX E11.9 ity o f (ACCU-CHEK 00:00: (Brand [place] GUIDE) 00 upon Medical strip insurance Branch approval) Lancets Yes [id number] Use BID, U nivers Misc 09-18 DX E11.9 ity of 00:00: (Brand [place] 00 upon Medical insurance Branch approval) Blood-Gluco Yes [id number] Use BID, Univers se Meter 23 DX E11.9 ity of (ACCU-CHEK 00:00: (Brand [place] GUIDE 00 upon Medical GLUCOSE insurance Branch METER) Misc approval) ACCU-CHEK GUIDE Blood-Gluco 2018-2020- No [id number] Use BID, Univers se Meter 09-18 05-19 DX E11.9 ity of (ACCU-CHEK 00:00: 00:00 ([place] :00 [place] Medical GLUCOSE insurance Branch METER) Misc approval) ACCU-CHEK GUIDE Blood-Gluco 2018-2020- No [id number] Use BID, Univers se Meter 09-18 05-19 DX E11.9 ity of (ACCU-CHEK 00:00: 00:00 ([place] :00 upon Medical GLUCOSE insurance Branch METER) Misc approval) ACCU-CHEK GUIDE lactulose 2018- Yes [id number] 15mL Take 15 mL Univers 10 gram/15 4-08 by mouth 3 ity of mL solution 00:00: (three) [place] 00 times Medical daily. Branch lactulose 2019-0 Yes [id number] 15mL Take 15 mL Univers 10 gram/15 4-08 by mouth 3 ity of mL solution 00:00: (three) [place] 00 times Medical daily. Branch lactulose 2019-0 Yes [id number] 15mL Take 15 mL Univers 10 gram/15 4-08 by mouth 3 ity of mL solution 00:00: (three) [place] 00 times Medical daily. Branch lactulose 2019-0 Yes [id number] 15mL Take 15 mL Univers 10 gram/15 4-08 by mouth 3 ity of mL solution 00:00: (three) [place] 00 times Medical daily. Branch lactulose 2019-0 Yes [id number] 15mL Take 15 mL Univers 10 gram/15 4-08 by mouth 3 ity of mL solution 00:00: (three) [place] 00 times Medical daily. Branch lactulose 2019-0 Yes [id number] 15mL Take 15 mL Univers 10 gram/15 4-08 by mouth 3 ity of mL solution 00:00: (three) [place] 00 times Medical daily. Branch lactulose 2019-0 Yes [id number] 15mL Take 15 mL Univers 10 gram/15 4-08 by mouth 3 ity of mL solution 00:00: (three) [place] 00 times Medical daily. Branch lactulose 2019-0 Yes [id number] 15mL Take 15 mL Univers 10 gram/15 4-08 by mouth 3 ity of mL solution 00:00: (three) [place] 00 times Medical daily. Branch lactulose 2019-0 Yes [id number] 15mL Take 15 mL Univers 10 gram/15 4-08 by mouth 3 ity of mL solution 00:00: (three) [place] 00 times Medical daily. Branch lactulose 2019-0 Yes [id number] 15mL Take 15 mL Univers 10 gram/15 4-08 by mouth 3 ity of mL solution 00:00: (three) [place] 00 times Medical daily. Branch lactulose 2019-0 Yes [id number] 15mL Take 15 mL Univers 10 gram/15 4-08 by mouth 3 ity of mL solution 00:00: (three) [place] 00 times Medical daily. Branch lactulose 2019-0 Yes [id number] 15mL Take 15 mL Univers 10 gram/15 4-08 by mouth 3 ity of mL solution 00:00: (three) [place] 00 times Medical daily. Branch lactulose 2019-0 Yes [id number] 15mL Take 15 mL Univers 10 gram/15 4-08 by mouth 3 ity of mL solution 00:00: (three) [place] 00 times Medical daily. Branch furosemide 2019-0 Yes [id number] 40mg Take 1 Univers 40 mg 2-12 tablet by ity of tablet 00:00: mouth [place] 00 every Medical morning Branch and evening. furosemide 2019-0 Yes [id number] 40mg Take 1 Univers 40 mg 2-12 tablet by ity of tablet 00:00: mouth [place] 00 every Medical morning Branch and evening. furosemide 2019-0 Yes [id number] 40mg Take 1 Univers 40 mg 2-12 tablet by ity of tablet 00:00: mouth [place] 00 every Medical morning Branch and evening. furosemide 2019-0 Yes [id number] 40mg Take 1 [facility] 40 mg 2-12 tablet by ity of tablet 00:00: mouth [place] 00 every Medical morning Branch and evening. furosemide 2019-0 Yes [id number] 40mg Take 1 [facility] 40 mg 2-12 tablet by ity of tablet 00:00: mouth [place] 00 every Medical morning Branch and evening. furosemide 2019-0 Yes [id number] 40mg Take 1 [facility] 40 mg 2-12 tablet by ity of tablet 00:00: mouth [place] 00 every Medical morning Branch and evening. furosemide 2019-0 Yes [id number] 40mg Take 1 [facility] 40 mg 2-12 tablet by ity of tablet 00:00: mouth [place] 00 every Medical morning Branch and evening. furosemide 2019-0 Yes [id number] 40mg Take 1 Univers 40 mg 2-12 tablet by ity of tablet 00:00: mouth [place] 00 every Medical morning Branch and evening. furosemide 2019-0 Yes [id number] 40mg Take 1 Univers 40 mg 2-12 tablet by ity of tablet 00:00: mouth [place] 00 every Medical morning Branch and evening. furosemide 2019-0 Yes [id number] 40mg Take 1 [facility] 40 mg 2-12 tablet by ity of tablet 00:00: mouth [place] 00 every Medical morning Branch and evening. furosemide 2019-0 Yes [id number] 40mg Take 1 Univers 40 mg 2-12 tablet by ity of tablet 00:00: mouth [place] 00 every Medical morning Branch and evening. furosemide 2019-0 Yes [id number] 40mg Take 1 Univers 40 mg 2-12 tablet by ity of tablet 00:00: mouth [place] 00 every Medical morning Branch and evening. furosemide 2018- Yes [id number] 40mg Take 1 Univers 40 mg 2-12 tablet by ity of tablet 00:00: mouth [place] 00 every Medical morning Branch and evening. metFORMIN 2020- No 500mg Take [address] [facility] [address] (GLUCOPHAGE 2-12 04-06 [facility] ) 500 MG 00:00: 00:00 mouth 2 Medic al tablet 00 :00 (two) Center times daily with breakfast and dinner . carvedilol 2018- Yes 6.25mg Take 6.[address] [facility] (COREG) 2-06 [facility] 3.125 MG 00:00: mouth 2 Medica l tablet 00 (two) Center times daily with breakfast and dinner . lisinopril Yes 20mg QD Take [address] [facility] (PRINIVIL,Z 2-06 by mouth [facility] ESTRIL) 20 00:00: daily . Medi jeevan MG tablet 00 Center lisinopril Yes [id number] 20mg Take 1 Univers 20 mg 2-06 tablet by ity of tablet 00:00: mouth [place] 00 daily. Medical Branch lisinopril Yes [id number] 20mg Take 1 Univers 20 mg 2-06 tablet by ity of tablet 00:00: mouth [place] 00 daily. Medical Branch lisinopril Yes [id number] 20mg Take 1 Univers 20 mg 2-06 tablet by ity of tablet 00:00: mouth [place] 00 daily. Medical Branch lisinopril Yes [id number] 20mg Take 1 Univers 20 mg 2-06 tablet by ity of tablet 00:00: mouth [place] 00 daily. Medical Branch lisinopril Yes [id number] 20mg Take 1 Univers 20 mg 2-06 tablet by ity of tablet 00:00: mouth [place] 00 daily. Medical Branch lisinopril Yes [id number] 20mg Take 1 Univers 20 mg 2-06 tablet by ity of tablet 00:00: mouth [place] 00 daily. Medical Branch lisinopril Yes [id number] 20mg Take 1 Univers 20 mg 2-06 tablet by ity of tablet 00:00: mouth [place] 00 daily. Medical Branch lisinopril Yes [id number] 20mg Take 1 Univers 20 mg 2-06 tablet by ity of tablet 00:00: mouth [place] 00 daily. [facility] Branch lisinopril Yes [id number] 20mg Take 1 Univers 20 mg 2-06 tablet by ity of tablet 00:00: mouth [place] 00 daily. [facility] Branch lisinopril Yes [id number] 20mg Take 1 Univers 20 mg 2-06 tablet by ity of tablet 00:00: mouth [place] 00 daily. [facility] Branch lisinopril Yes [id number] 20mg Take 1 Univers 20 mg 2-06 tablet by ity of tablet 00:00: mouth [place] 00 daily. [facility] lisinopril Yes [id number] 20mg Take 1 Univers 20 mg 2-06 tablet by ity of tablet 00:00: mouth [place] 00 daily. [facility] lisinopril Yes [id number] 20mg Take 1 Univers 20 mg 2-06 tablet by ity of tablet 00:00: mouth [place] 00 daily. [facility] Branch carvedilol Yes 6.25mg Take 6.[address] [facility] (COREG) 2-06 mg [facility] 3.125 MG 00:00: mouth 2 Medica l tablet 00 (two) Center times daily with breakfast and dinner . lisinopril Yes 20mg QD Take [address] (PRINIVIL,Z 2-06 by mouth [facility] ESTRIL) 20 00:00: daily . Medi jeevan MG tablet 00 Center pantoprazol Yes 40mg QD Take [address] [facility] 1-09 by [facility] (PROTONIX) 00:00: daily . Medi jeevan 40 MG 00 Center tablet pantoprazol Yes 40mg QD Take [address] [facility] 1-09 by [facility] (PROTONIX) 00:00: daily . Medi jeevan 40 MG 00 Center tablet hydrOXYzine 2017-05 Yes 50mg Take [address] [facility] (ATARAX) 50 1-14 by mouth [facility] MG tablet 00:00: as needed Med ical 00 . [place] hydrOXYzine 2017-05 Yes 50mg Take [address] [facility] (ATARAX) 50 1-14 by mouth [facility] MG tablet 00:00: as needed Med ical 00 . [place] traMADol 0 Yes Recurrent 50mg Take 1 [facility] (ULTRAM) 50 7-19 umbilical tablet by Health mg tablet 00:00: hernia mouth 00 every 6 hours as needed for Pain. traMADol 2016-0 Yes Recurrent 50mg Take 1 [facility] (ULTRAM) 50 7-19 umbilical tablet by Health mg tablet 00:00: hernia mouth 00 every 6 hours as needed for Pain. No known No [facility] No known No [facility] Immunizations Ordered Filled Immunization Date Status Comments [facility] e Immunization Name Name SARS-COV-2 COVID-19 2021-02-05 Completed Unive rsity of PFIZER VACCINE 00:00:00 [facility] SARS-COV-2 COVID-19 2021-02-05 Completed Unive rsity of PFIZER VACCINE 00:00:00 [facility] SARS-COV-2 COVID-19 2021-02-05 Completed Unive rsity of PFIZER VACCINE 00:00:00 [facility] SARS-COV-2 COVID-19 2021-02-05 Completed Unive rsity of PFIZER VACCINE 00:00:00 [facility] SARS-COV-2 COVID-19 2021-02-05 Completed Unive rsity of PFIZER VACCINE 00:00:00 [facility] SARS-COV-2 COVID-19 2021-02-05 Completed Unive rsity of PFIZER VACCINE 00:00:00 [facility] SARS-COV-2 COVID-19 2021-02-05 Completed Unive rsity of PFIZER VACCINE 00:00:00 [facility] Covid-19 Vaccine 2020-07-[address] [facility] Mrna (Pf) 00:00:00 Medical [place] (Pfizer/biontech) Covid-19 Vaccine 2020-07-[address] [facility] MRNA (PF) 12yr+ 00:00:00 Medical C enter (Pfizer/BioNTech)(I [id number]) Covid-19 Vaccine 2020-06-[address] [facility] Mrna (Pf) 00:00:00 [facility] (Pfizer/biontech) Covid-19 Vaccine 2020-06-[address] [facility] MRNA (PF) 12yr+ 00:00:00 Medical C enter (Pfizer/BioNTech)(I [id number]) Influenza 2020-06-[address] [facility] Antibiotic Free PF 00:00:00 [facility] IM ([id number]) Influenza 2020-06-[address] [facility] Antibiotic Free PF 00:00:00 [facility] IM ([id number]) Pneumococcal 2018-10-[address] [facility] Conjugate (Prevnar) 00:00:00 [facility] 13-Valent Pneumococcal 2018-10-[address] [facility] Conjugate (Prevnar) 00:00:00 [facility] 13-Valent Influenza Four-QIV 2018-04-[address] [facility] PF 3+YR IM 00:00:00 [facility] Influenza Virus 2018-04-11 Completed Universit y of Vaccine Quad IM 3+ 00:00:00 [facility] Influenza Virus 2018-04-11 Completed Universit y of Vaccine Quad IM 3+ 00:00:00 [facility] Influenza Virus 2018-04-11 Completed Universit y of Vaccine Quad IM 3+ 00:00:00 [facility] Influenza Virus 2018-04-11 Completed Universit y of Vaccine Quad IM 3+ 00:00:00 [facility] Influenza Virus 2018-04-11 Completed Universit y of Vaccine Quad IM 3+ 00:00:00 [facility] Influenza Virus 2018-04-11 Completed Universit y of Vaccine Quad IM 3+ 00:00:00 [facility] Influenza Virus 2018-04-11 Completed Universit y of Vaccine Quad IM 3+ 00:00:00 [facility] Influenza Virus 2018-04-11 Completed Universit y of Vaccine Quad IM 3+ 00:00:00 [facility] Influenza Virus 2018-04-11 Completed Universit y of Vaccine Quad IM 3+ 00:00:00 [facility] Influenza Virus 2018-04-11 Completed Universit y of Vaccine Quad IM 3+ 00:00:00 [facility] Influenza Virus 2018-04-11 Completed Universit y of Vaccine Quad IM 3+ 00:00:00 [facility] Influenza Virus 2018-04-11 Completed Universit y of Vaccine Quad IM 3+ 00:00:00 [facility] Influenza Virus 2018-04-11 Completed Universit y of Vaccine Quad IM 3+ 00:00:00 [facility] Influenza Virus 2018-04-11 Completed Universit y of Vaccine Quad IM 3+ 00:00:00 [facility] Influenza Virus 2018-04-11 Completed Universit y of Vaccine Quad IM 3+ 00:00:00 [facility] Influenza Virus 2018-04-11 Completed Universit y of Vaccine Quad IM 3+ 00:00:00 [facility] Influenza Virus 2018-04-11 Completed Universit y of Vaccine Quad IM 3+ 00:00:00 [facility] Influenza Virus 2018-04-11 Completed Universit y of Vaccine Quad IM 3+ 00:00:00 [facility] Influenza Virus 2018-04-11 Completed Universit y of Vaccine Quad IM 3+ 00:00:00 [facility] Influenza Virus 2018-04-11 Completed Universit y of Vaccine Quad IM 3+ 00:00:00 [facility] Influenza Virus 2018-04-11 Completed Universit y of Vaccine Quad IM 3+ 00:00:00 [facility] Influenza Virus 2018-04-11 Completed Universit y of Vaccine Quad IM 3+ 00:00:00 [facility] Influenza Virus 2018-04-11 Completed Universit y of Vaccine Quad IM 3+ 00:00:00 [facility] Influenza Virus 2018-04-11 Completed Universit y of Vaccine Quad IM 3+ 00:00:00 [facility] Influenza Virus 2018-04-11 Completed Universit y of Vaccine Quad IM 3+ 00:00:00 [facility] Influenza Virus 2018-04-11 Completed Universit y of Vaccine Quad IM 3+ 00:00:00 [facility] Influenza Virus 2018-04-11 Completed Universit y of Vaccine Quad IM 3+ 00:00:00 [facility] Influenza Virus 2018-04-11 Completed Universit y of Vaccine Quad IM 3+ 00:00:00 [facility] Influenza Virus 2018-04-11 Completed Universit y of Vaccine Quad IM 3+ 00:00:00 [facility] Influenza Virus 2018-04-11 Completed Universit y of Vaccine Quad IM 3+ 00:00:00 [facility] Influenza Virus 2018-04-11 Completed Universit y of Vaccine Quad IM 3+ 00:00:00 [facility] Influenza Four-QIV 2018-04-[address] [facility] PF 3+YR IM 00:00:00 Medical Center Td 7+ years, 2016-09-[address] [facility] (TDVAX) 2 Lf tetaus 00:00:00 [facility] toxoid preservative free Td 2016-09-18 Completed University of 00:00:00 [place] [facility] Td 2016-09-18 Completed University of 00:00:00 [place] [facility] Td 2016-09-18 Completed University of 00:00:00 [place] [facility] Td 2016-09-18 Completed University of 00:00:00 [place] [facility] Td 2016-09-18 Completed University of 00:00:00 [place] [facility] Td 2016-09-18 Completed University of 00:00:00 [place] [facility] Td 2016-09-18 Completed University of 00:00:00 [place] [facility] Td 2016-09-18 Completed University of 00:00:00 [place] [facility] Td 2016-09-18 Completed University of 00:00:00 [place] [facility] Td 2016-09-18 Completed University of 00:00:00 [place] [facility] Td 2016-09-18 Completed University of 00:00:00 [place] [facility] Td 2016-09-18 Completed University of 00:00:00 [place] [facility] Td 2016-09-18 Completed University of 00:00:00 [place] [facility] Td 2016-09-18 Completed University of 00:00:00 [place] [facility] Td 2016-09-18 Completed University of 00:00:00 [place] [facility] Td 2016-09-18 Completed University of 00:00:00 [place] [facility] Td 2016-09-18 Completed University of 00:00:00 [place] [facility] Td 2016-09-18 Completed University of 00:00:00 [facility] Td 2016-09-18 Completed University of 00:00:00 [place] [facility] Td 2016-09-18 Completed University of 00:00:00 [place] [facility] Td 2016-09-18 Completed University of 00:00:00 [place] [facility] Td 2016-09-18 Completed University of 00:00:00 [place] [facility] Td 2016-09-18 Completed University of 00:00:00 [place] [facility] Td 2016-09-18 Completed University of 00:00:00 [place] [facility] Td 2016-09-18 Completed University of 00:00:00 [place] [facility] Td 2016-09-18 Completed University of 00:00:00 [place] [facility] Td 2016-09-18 Completed University of 00:00:00 [place] [facility] Td 2016-09-18 Completed University of 00:00:00 [place] [facility] Td 2016-09-18 Completed University of 00:00:00 [facility] Td 2016-09-18 Completed University of 00:00:00 [facility] Td 2016-09-18 Completed University of 00:00:00 [facility] Td 2016-09-18 Completed University of 00:00:00 [facility] Td 2016-09-18 Completed University of 00:00:00 [facility] Td 7+ years, 2016-09-[address] [facility] (TDVAX) 2 Lf 00:00:00 [facility] Cent er tetanus toxoid preservative free Vital Signs Vital Name Observation Time Observation Value Comments Source HEIGHT 2019-12-24 167.6 cm 00:00:00 WEIGHT 2019-12-24 103 kg 00:00:00 Systolic blood 2021-12-26 150 mm[Hg] University of pressure 20:38:00 [facility] Diastolic blood 2021-12-26 79 mm[Hg] [facility] f pressure 20:38:00 [facility] Heart rate 2021-12-26 104 /min University 20:38:00 [facility] Body temperature 2021-12-26 38.06 Corrina University of 20:38:00 [facility] Respiratory rate 2021-12-26 18 /min University 20:38:00 [facility] Body height 2021-12-26 167.6 cm University of 20:38:00 [facility] Body weight 2021-12-26 108.863 kg University of 20:38:00 [facility] BMI 2021-12-26 38.74 kg/m2 University of 20:38:00 [facility] Oxygen saturation 2021-12-26 99 /min [facility] blood 20:38:00 [facility] by Pulse oximetry [place] HEIGHT 2021-12-22 167.6 cm 10:36:00 WEIGHT 2021-12-22 112.175 kg 10:36:00 HEIGHT 2021-12-22 167.6 cm 10:36:00 WEIGHT 2021-12-22 112.175 kg 10:36:00 HEIGHT 2021-12-22 167.6 cm 10:36:00 WEIGHT 2021-12-22 112.175 kg 10:36:00 HEIGHT 2021-09-08 167.6 cm 09:59:00 WEIGHT 2021-09-08 104.917 kg 09:59:00 HEIGHT 2021-09-08 167.6 cm 09:59:00 WEIGHT 2021-09-08 104.917 kg 09:59:00 HEIGHT 2021-07-28 167.6 cm 09:12:00 WEIGHT 2021-07-28 104.237 kg 09:12:00 HEIGHT 2021-07-28 167.6 cm 09:12:00 WEIGHT 2021-07-28 104.237 kg 09:12:00 Systolic blood 2021-04-01 119 mm[Hg] University of pressure 20:00:00 [facility] Diastolic blood 2021-04-01 65 mm[Hg] [place] o f pressure 20:00:00 [facility] Heart rate 2021-04-01 57 /min University 20:00:00 [facility] Respiratory rate 2021-04-01 16 /min University 20:00:00 [facility] Oxygen saturation 2021-04-01 100 /min Sim[facility] Arterial blood 20:00:00 filing. User may [facility] by Pulse oximetry not have seen Branch previous data. Body temperature 2021-04-01 36.22 [facility] 18:07:00 [facility] Body height 2021-04-01 166 cm University 18:07:00 [facility] Body weight 2021-04-01 104.327 kg University 18:07:00 [facility] BMI 2021-04-01 37.86 kg/m2 University 18:07:00 [facility] HEIGHT 2021-03-12 167.6 cm 07:20:00 WEIGHT 2021-03-12 [...] 2020-08-19 132 mm[Hg] University of pressure 14:00:00 [facility] Diastolic blood 2020-08-19 77 mm[Hg] University o f pressure 14:00:00 [facility] Heart rate 2020-08-19 71 /min University 14:00:00 [facility] Respiratory rate 2020-08-19 18 /min University 14:00:00 [facility] Oxygen saturation 2020-08-19 99 /min [facility] Arterial blood 14:00:00 [facility] by Pulse oximetry [place] Body temperature 2020-08-19 36.94 [place] University of 12:32:00 [facility] Body weight 2020-08-19 106.142 kg University of 12:32:00 [facility] BMI 2020-08-19 37.77 kg/m2 University of 12:32:00 [facility] Systolic blood 2020-08-19 132 mm[Hg] University of pressure 14:00:00 [facility] Diastolic blood 2020-08-19 77 mm[Hg] University o f pressure 14:00:00 [facility] Heart rate 2020-08-19 71 /min University of 14:00:00 [facility] Branch Respiratory rate 2020-08-19 18 /min University of 14:00:00 [facility] Branch Oxygen saturation 2020-08-19 99 /min University of in Arterial blood 14:00:00 [facility] jeevan by Pulse oximetry Branch Body temperature 2020-08-19 36.94 [place] University of 12:32:00 [facility] Body weight 2020-08-19 106.142 kg University of 12:32:00 [facility] BMI 2020-08-19 37.77 kg/m2 University of 12:32:00 [facility] Systolic blood 2020-06-26 120 mm[Hg] University of pressure 03:00:00 [facility] Branch Diastolic blood 2020-06-26 103 mm[Hg] University o f pressure 03:00:00 [facility] Heart rate 2020-06-26 83 /min University of 03:00:00 [facility] Respiratory rate 2020-06-26 20 /min University of 03:00:00 [facility] Oxygen saturation 2020-06-26 99 /min University of in Arterial blood 03:00:00 [facility] jeevan by Pulse oximetry Branch Body temperature 2020-06-25 36.44 Corrina University of 23:03:00 [facility] Body height 2020-06-25 167.6 cm University of 23:03:00 [facility] Body weight 2020-06-25 105.235 kg University of 23:03:00 [facility] BMI 2020-06-25 37.45 kg/m2 University of 23:03:00 [facility] Systolic blood 2020-06-26 120 mm[Hg] University of pressure 03:00:00 [facility] Diastolic blood 2020-06-26 103 mm[Hg] University o f pressure 03:00:00 [facility] Heart rate 2020-06-26 83 /min University of 03:00:00 [facility] Respiratory rate 2020-06-26 20 /min University of 03:00:00 [facility] Oxygen saturation 2020-06-26 99 /min University of in Arterial blood 03:00:00 [facility] by Pulse oximetry Branch Body temperature 2020-06-25 36.44 Corrina University of 23:03:00 [facility] Body height 2020-06-25 167.6 cm University of 23:03:00 [facility] Body weight 2020-06-25 105.235 kg University of 23:03:00 [facility] BMI 2020-06-25 37.45 kg/m2 University of 23:03:00 [facility] HEIGHT 2020-03-13 167.6 cm 10:38:00 WEIGHT 2020-03-13 108.41 kg 10:38:00 HEIGHT 2020-03-13 167.6 cm 10:38:00 WEIGHT 2020-03-13 108.41 kg 10:38:00 HEIGHT 2019-12-24 167.6 cm 00:00:00 WEIGHT 2019-12-24 103 kg 00:00:00 Systolic blood 2019-01-21 131 mm[Hg] University of pressure 21:03:00 [facility] Diastolic blood 2019-01-21 79 mm[Hg] University o f pressure 21:03:00 [facility] Heart rate 2019-01-21 73 /min University of 21:03:00 [facility] Body temperature 2019-01-21 37.06 Corrina University of 21:03:00 [facility] Respiratory rate 2019-01-21 18 /min University of 21:03:00 [facility] Body weight 2019-01-21 103.103 kg University of 21:03:00 [facility] BMI 2019-01-21 36.69 kg/m2 University of 21:03:00 [facility] Oxygen saturation 2019-01-21 98 /min University of in Arterial blood 21:03:00 [facility] by Pulse oximetry Branch Systolic blood 2019-01-21 131 mm[Hg] University of pressure 21:03:00 [facility] Diastolic blood 2019-01-21 79 mm[Hg] University o f pressure 21:03:00 [facility] Heart rate 2019-01-21 73 /min University of 21:03:00 [facility] Body temperature 2019-01-21 37.06 Corrina University of 21:03:00 [facility] Respiratory rate 2019-01-21 18 /min University of 21:03:00 [facility] Body weight 2019-01-21 103.103 kg University of 21:03:00 [facility] BMI 2019-01-21 36.69 kg/m2 University of 21:03:00 [facility] Oxygen saturation 2019-01-21 98 /min University of in Arterial blood 21:03:00 [place] [facility] by Pulse oximetry Branch Systolic blood 2021-12-22 150 mm[Hg] [facility] pressure 10:36:00 Medical Center Diastolic blood 2021-12-22 76 mm[Hg] [facility] pressure 10:36:00 Medical Center Heart rate 2021-12-22 75 /min [facility] 10:36:00 [facility] Center Body temperature 2021-12-[address] [facility] 10:36[facility] Respiratory rate 2021-12-22 18 /min [facility] 10:36:[facility] Body height 2021-12-[address] [facility] 10:36:00 Medical Center Body weight 2021-12-[address] [facility] 10:36:00 [facility] BMI 2021-12-22 39.92 kg/m2 [facility] 10:36:00 Medical Center Oxygen saturation 2021-12-22 98 /min [facility] in Arterial blood 10:36:00 Medical nter by Pulse oximetry Systolic blood 2021-03-12 107 mm[Hg] [facility] pressure 14:30:00 Medical Center Diastolic blood 2021-03-12 58 mm[Hg] [facility] pressure 14:30:00 [facility] Heart rate 2021-03-12 61 /min [facility] 14:30:00 [facility] Respiratory rate 2021-03-12 18 /min [facility] 13:30:00 [facility] Oxygen saturation 2021-03-12 94 /min [facility] in Arterial blood 13:30:00 Medical nter by Pulse oximetry Body temperature 2021-03-[address] [facility] 12:02:00 [facility] Body height 2021-03-[address] [facility] 07:20:00 [facility] Body weight 2021-03-[address] [facility] 07:20:00 [facility] BMI 2021-03-12 36.32 kg/m2 [facility] 07:20:00 Medical Center Procedures Procedure Date / Time Performing Clinician Source Performed CBC W/PLT COUNT & AUTO 2022-01-07 14:53:00 Amberly Washington [facility] Center IRON, TIBC, % SAT. 2022-01-07 14:53:00 Amberly Washington [facility] (WITHOUT FERRITIN) Center FERRITIN 2022-01-07 14:53:00 Amberly Washington [facility] PLATELET ESTIMATION 2022-01-07 14:53:00 Amberly Washington [facility] MR BRAIN WITH & WITHOUT IV 2022-01-04 14:14:00 Amberly Washington [facility] CONTRAST Center CT HEAD WO CONTRAST 2021-12-26 22:35:08 Felisha Quintana [facility] Branch BASIC METABOLIC PANEL (NA, 2021-12-26 21:33:00 [facility] K, CL, CO2, GLUCOSE, BUN, Medica l Branch CREATININE, CA) CBC WITH DIFF 2021-12-26 21:33:00 Felisha Quintana [facility] URINALYSIS 2021-12-26 21:33:00 Felsiha Quintana [facility] COVID-19 (ID NOW RAPID 2021-12-26 20:48:00 Felisha Quintana [facility] TESTING) Medical Branch CONSENT/REFUSAL FOR 2021-12-26 20:32:58 Doctor Unassigned, [facility] DIAGNOSIS AND TREATMENT [place] [facility] BASIC METABOLIC PANEL (7) 2021-12-22 12:08:00 Amberly Washington [facility] CBC W/PLT COUNT & AUTO 2021-12-22 12:08:00 Amberly Washington [facility] DIFFERENTIAL Center HEPATIC FUNCTION PANEL 2021-12-22 12:08:00 Amberly Washington [facility] PROTHROMBIN TIME/INR 2021-12-22 12:08:00 Amberly Washington I [facility] CBC W/PLT COUNT & AUTO 2021-12-22 12:08:00 Amberly Washington [facility] DIFFERENTIAL Center ALPHA FETOPROTEIN (AFP), 2021-12-06 13:43:00 Amberly Washington [facility] TUMOR MARKER Center BASIC METABOLIC PANEL (7) 2021-12-06 13:43:00 Amberly Washington [facility] CBC W/PLT COUNT & AUTO 2021-12-06 13:43:00 Amberly Washington [facility] Center HEPATIC FUNCTION PANEL 2021-12-06 13:43:00 Amberly Washington [facility] PROTHROMBIN TIME/INR 2021-12-06 13:43:00 Amberly Washington [facility] CBC W/PLT COUNT & AUTO 2021-12-06 13:43:00 Amberly Washington [facility] DIFFERENTIAL Center MR ABDOMEN WITH & WITHOUT 2021-12-06 12:08:00 Amberly Washington [facility] IV CONTRAST Center MR METASTATIC SKELETAL 2021-12-06 11:10:00 Amberly Washington [facility] STUDY Center CT CHEST WITHOUT IV 2021-12-06 10:40:00 Amberly Washington [facility] CONTRAST Center MR ABDOMEN WITH & WITHOUT 2021-08-26 10:40:00 Amberly Washington [facility] IV CONTRAST Center CT CHEST WITHOUT IV 2021-08-26 10:00:00 Amberly Washington [facility] CONTRAST Center ALPHA FETOPROTEIN (AFP), 2021-08-26 08:27:00 Amberly Washington [facility] TUMOR MARKER Center BASIC METABOLIC PANEL (7) 2021-08-26 08:27:00 Amberly Washington [facility] CBC W/PLT COUNT & AUTO 2021-08-26 08:27:00 Amberly Washington [facility] Center HEPATIC FUNCTION PANEL 2021-08-26 08:27:00 Amberly Washington [facility] PROTHROMBIN TIME/INR 2021-08-26 08:27:00 Amberly Washington [facility] CBC W/PLT COUNT & AUTO 2021-08-26 08:27:00 Amberly Washington [facility] DIFFERENTIAL Center HEREDITARY HEMOCHROMATOSIS 2021-08-26 08:24:00 Amberly Washington [facility] COMPREHENSIVE METABOLIC 2021-08-03 11:34:00 Amberly Washington [facility] PANEL Center ALPHA FETOPROTEIN (AFP), 2021-08-03 11:34:00 Amberly Washington [facility] TUMOR MARKER [place] PROTHROMBIN TIME/INR 2021-08-03 11:34:00 Amberly Washington [facility] CBC W/PLT COUNT & AUTO 2021-08-03 11:34:00 Amberly Washington [facility] NM BONE SCAN WHOLE BODY 2021-04-29 13:03:00 Amberly Washington [facility] MR ABDOMEN WITH & WITHOUT 2021-04-29 11:48:00 Amberly Washington [facility] IV CONTRAST Center CT CHEST WITHOUT IV 2021-04-29 10:31:00 Amberly Washington [facility] CONTRAST [place] ALPHA FETOPROTEIN (AFP), 2021-04-29 09:09:00 Amberly Washington [facility] TUMOR MARKER [place] BASIC METABOLIC PANEL (7) 2021-04-29 09:09:00 Amberly Washington [facility] CBC W/PLT COUNT & AUTO 2021-04-29 09:09:00 Amberly Washington [facility] HEPATIC FUNCTION PANEL 2021-04-29 09:09:00 Amberly Washington [facility] PROTHROMBIN TIME/INR 2021-04-29 09:09:00 Amberly Washington [facility] CBC W/PLT COUNT & AUTO 2021-04-29 09:09:00 Amberly Washington [facility] TROPONIN I 2021-04-01 19:14:00 Chandrakant Garrett [facility] COMP. METABOLIC PANEL 2021-04-01 19:14:[address] [facility] ([id number]) Medical Branch AMMONIA, PLASMA 2021-04-01 19:12:00 [facility] CBC WITH DIFF 2021-04-01 19:12:00 [facility] XR CHEST 1 VW 2021-04-01 18:51:09 [facility] URINALYSIS 2021-04-01 18:40:00 [facility] PROTHROMBIN TIME / INR 2021-04-01 18:30:00 Chandrakant Garrett [facility] CONSENT/REFUSAL FOR 2021-04-01 17:58:35 Doctor Unasssuly [facility] DIAGNOSIS AND TREATMENT [place] [facility] IR EMBOLIZATION ARTERIAL 2021-03-12 12:05:00 Amberly Washington [facility] BASIC METABOLIC PANEL (7) 2021-03-12 07:01:00 Anne-Marie More I [facility] HEPATIC FUNCTION PANEL 2021-03-12 07:01:00 Anne-Marie More [facility] CBC W/PLT COUNT & AUTO 2021-03-12 07:01:00 Anne-Marie More [facility] PROTHROMBIN TIME/INR 2021-03-12 07:01:00 Anne-Marie More [facility] CBC W/PLT COUNT & AUTO 2021-03-12 07:01:00 Anne-Marie More [facility] CBC W/PLT COUNT & AUTO 2021-02-23 10:05:00 Aicha Roman [facility] PROTHROMBIN TIME/INR 2021-02-23 10:05:00 Aicha Roman [facility] APTT 2021-02-23 10:05:00 Aicha Roman [facility] BASIC METABOLIC PANEL (7) 2021-02-23 10:05:00 Aicha Roman [facility] HEPATIC FUNCTION PANEL 2021-02-23 10:05:00 Aicha Roman [facility] CBC W/PLT COUNT & AUTO 2021-02-23 10:05:00 [facility] DIFFERENTIAL [place] [facility] SARS-COV-2 COVID-19 2021-02-05 15:47:55 Doctor Unassigned, [facility] VACCINE,0.3ML,IM (PFIZER) [place] [facility] MR ABDOMEN WITH & WITHOUT 2021-01-21 12:00:00 Amberly Washington [facility] IV CONTRAST Center CT CHEST WITHOUT IV 2021-01-21 10:45:00 Amberly Washington [facility] CONTRAST Center ALPHA FETOPROTEIN (AFP), 2021-01-21 10:02:00 Amberly Washington [facility] TUMOR MARKER Center BASIC METABOLIC PANEL (7) 2021-01-21 10:02:00 Amberly Washington [facility] CBC W/PLT COUNT & AUTO 2021-01-21 10:02:00 Amberly Washington [facility] HEPATIC FUNCTION PANEL 2021-01-21 10:02[facility]00 [facility] 2021-01-21 10:02:00 Amberly Washington [facility] HEPATITIS C PCR, 2021-01-21 10:02:00 Amberly Washington [facility] QUANTITATIVE Center CBC W/PLT COUNT & AUTO 2021-01-21 10:02:00 Amberly Washington [facility] Center IR EMBOLIZATION ARTERIAL 2020-11-26 12:27:00 Amberly Washington [facility] BASIC METABOLIC PANEL (7) 2020-11-26 08:28:00 [facility] [place] HE[facility] FUNCTION PANEL 2020-11-26 08:28:00 Anne-Marie More [facility] CBC W/PLT COUNT & AUTO 2020-11-26 08:28:00 Alayon, [facility] PR[facility]/INR 2020-11-26 08:28:00 [facility] 2020-11-26 08:28:00 Derik [facility] CBC W/PLT COUNT & AUTO 2020-11-26 08:28:00 Derik [facility] DIFFERENTIAL [facility] BASIC METABOLIC PANEL (7) 2020-10-28 10:55:00 Amberly Washington [facility] HEPATIC FUNCTION PANEL 2020-10-28 10:55:00 Amberly Washington [facility] CBC W/PLT COUNT & AUTO 2020-10-28 10:55:00 Amberly Washington [facility] PROTHROMBIN TIME/INR 2020-10-28 10:55:00 Amberly Washington [facility] HEPATITIS C PCR, 2020-10-28 10:55:00 Amberly Washington [facility] QUANTITATIVE Center CBC W/PLT COUNT & AUTO 2020-10-28 10:55:00 Amberly Washington [facility] NM BONE SCAN WHOLE BODY 2020-10-08 14:02:00 Amberly Washington [facility] ALPHA FETOPROTEIN (AFP), 2020-10-08 10:54:00 Amberly Washington [facility] TUMOR MARKER Center BASIC METABOLIC PANEL (7) 2020-10-08 10:54:00 Amberly Washington [facility] CBC W/PLT COUNT & AUTO 2020-10-08 10:54:00 Amberly Washington [facility] HEPATIC FUNCTION PANEL 2020-10-08 10:54:00 Amberly Washington [facility] PROTHROMBIN TIME/INR 2020-10-08 10:54:00 Amberly Washington [facility] CBC W/PLT COUNT & AUTO 2020-10-08 10:54:00 Amberly Washington [facility] DIFFERENTIAL Center CT CHEST WITHOUT IV 2020-10-08 09:45:00 Padmini Amberly [facility] CONTRAST Center MR ABDOMEN WITH & WITHOUT 2020-09-01 14:15:00 Jose Francisco Laguna I [facility] IV CONTRAST Center BASIC METABOLIC PANEL (7) 2020-09-01 13:15:00 Nickie Yeh [facility] [place] Center HEPATIC FUNCTION PANEL 2020-09-01 13:15:00 [place] Nickie [facility] [place] Center CBC W/PLT COUNT & AUTO 2020-09-01 13:15:00 [facility] DIFFERENTIAL [place] PROTHROMBIN TIME/INR 2020-09-01 13:15:00 [facility] [place] ALPHA FETOPROTEIN (AFP), 2020-09-01 13:15:00 [facility] TUMOR MARKER [place] Center CBC W/PLT COUNT & AUTO 2020-09-01 13:15:00 [facility] DIFFERENTIAL [place] Center XR CHEST 1 VW 2020-08-19 13:29:[address] [facility] HB ECG ROUTINE & RHYTHM 2020-08-19 13:05:46 [facility] 2020-08-19 13:01:[address] [facility] TROPONIN I 2020-08-19 13:01:[address] [facility] HEPATIC FUNCTION PANEL 2020-08-19 13:01:00 Wendy Bull [facility] ([id number]) (ALB,T.PRO,BILI Medical Branch T,BU/BC,ALT,AST,ALK PHOS) BASIC METABOLIC PANEL (NA, 2020-08-19 13:01:00 Wendy Bull [facility] K, CL, CO2, GLUCOSE, BUN, Medica l Branch CREATININE, CA) CBC WITH DIFF 2020-08-19 13:01:[address] [facility] N-TERMINAL PRO-BNP 2020-08-19 13:01:00 Wendy Bull [facility] COVID-19 (ID NOW RAPID 2020-08-19 13:01:00 Wendy Bull [facility] TESTING) Medical Branch CONSENT/REFUSAL FOR 2020-08-19 12:21:55 Doctor Unassigned, [facility] DIAGNOSIS AND TREATMENT [place] [facility] AMMONIA, PLASMA 2020-06-26 01:01:00 [facility] PROTHROMBIN TIME / INR 2020-06-26 01:01:00 [place] San [facility] XR CHEST 1 VW 2020-06-25 23:46:19 [place] [facility] LIPASE 2020-06-25 23:43:00 [facility] MAGNESIUM 2020-06-25 23:43:00 [facility] TROPONIN I 2020-06-25 23:43:00 [place] [facility] HEPATIC FUNCTION PANEL 2020-06-25 23:43:00 Scar [place] [facility] ([id number]) ([facility],BU/BC,ALT,AST,ALK PHOS) BASIC METABOLIC PANEL (NA, 2020-06-25 23:43:00 [place] San [facility] K, CL, CO2, GLUCOSE, BUN, Medica l Branch CREATININE, CA) CBC WITH DIFF 2020-06-25 23:43:00 [place] [facility] URINALYSIS 2020-06-25 23:43:00 [place] [facility] N-TERMINAL PRO-BNP 2020-06-25 23:43:00 Carolina San [facility] COVID-19 (ID NOW RAPID 2020-06-25 23:43:00 Carolina San [facility] TESTING) Medical Branch NOTICE OF PRIVACY 2020-06-25 22:41:45 Doctor Unassigned, [facility] PRACTICES [place] [facility] CONSENT/REFUSAL FOR 2020-06-25 22:41:29 Trung Conte [facility] DIAGNOSIS AND TREATMENT [facility] - OTHER 2019-02-08 05:01:00 Trung Conte [facility] - OTHER 2019-01-31 05:01:00 Trung Conte [facility] POCT HEMOGLOBIN A1C TEST 2019-01-21 21:30:00 Brenda Rod [facility] DME/SUPPLY JUSTIFICATION 2019-01-17 05:01:00 Doctor Arboleda [facility] HEALTH - OTHER 2019-01-07 05:01:00 Trung Conte [facility] - OTHER 2019-01-02 05:01:00 Trung Conte [facility] - OTHER 2018-12-28 05:01:[address] INSURANCE CORRESPONDENCE 2018-12-17 05:01:00 Doctor Arboleda [facility] PATIENT QUESTIONNAIRE 2016-10-19 05:01:00 Gisela Conte [facility] SCANNED LAB RESULTS 2016-10-13 05:01:[address] [facility] Plan of Care Planned Activity Planned Date Details Comments Source Future Scheduled 2028-06-12 Screening for malignant [facility] Test 00:00:00 neoplasm of colon Medical Ce nter (procedure) [code = 150677151] Future Scheduled 2028-06-12 Screening for malignant [facility] Test 00:00:00 neoplasm of colon Medical Ce nter (procedure) [code = 174179718] Future Scheduled 2028-06-12 Screening for malignant [facility] Test 00:00:00 neoplasm of colon Medical Ce nter (procedure) [code = 610639394] Future Scheduled 2026-09-18 DTAP/TDAP/TD VACCINES [facility] 00:00:00 (2 - Td or Tdap) [code Medic al Center = DTAP/TDAP/TD VACCINES (2 - Td or Tdap)] Future Scheduled 2026-09-18 DTAP/TDAP/TD VACCINES [facility] 00:00:00 (2 - Td or Tdap) [code Medic al Center = DTAP/TDAP/TD VACCINES (2 - Td or Tdap)] Future Scheduled 2022-02-26 IMM Influenza Seasonal [facility] 00:00:00 (>/= 19 yrs) [code = IMM Influenza Seasonal (>/= 19 yrs)] Future Scheduled 2022-01-27 INFLUENZA VACCINE (#1) [facility] 00:[facility]00 [code = INFLUENZA Medical Ce nter VACCINE (#1)] Future Scheduled 2021-12-20 Lipid panel (procedure) [facility] Test 00:00:00 [code = 45950053] Medical Ce nter Future Scheduled 2021-12-20 Lipid panel (procedure) [facility] Test 00:00:00 [code = [id number]] Medical Ce nter Future Scheduled 2021 Imm Pneumococcal 65+ (1 [facility] Test 00:00:00 - PCV) [code = Imm Pneumococcal 65+ (1 - PCV)] Future Scheduled [address] [facility] Test 00:00:00 aneurysm screening Medical C enter (procedure) [code = 953747560] Future Scheduled 2021 PNEUMOCOCCAL 65+ YRS ([address] [facility] Test 00:00:00 - PPSV23 or PCV20) Medical C enter [code = PNEUMOCOCCAL 65+ YRS (2 - PPSV23 or PCV20)] Future Scheduled 2021-06-07 COVID-19 VACCINE (4 - [facility] 00:[facility]:00 Booster for Pfizer Medical C enter series) [code = COVID-19 VACCINE (4 - Booster for Pfizer series)] Future Scheduled 2021-05-[address] [facility] Test 00:00:00 (12+) [code = Medical Center DEPRESSION SCREENING (12+)] Future Scheduled 2021-05-[address] [facility] Test 00:00:00 (12+) [code = Medical Center DEPRESSION SCREENING (12+)] Future Scheduled 2021-05-29 FALLS RISK SCREENING [facility] Test 00:00:00 [code = FALLS RISK Medical C enter SCREENING] Future Scheduled 2021-02-26 IMM Influenza Seasonal [facility] 00:00:00 Feb to July (>/= 19 yrs) [code = IMM Influenza Seasonal Feb to July (>/= 19 yrs)] Future Scheduled 2021-01-27 INFLUENZA VACCINE (#1) [facility] 00:00:00 [code = INFLUENZA Medical Ce nter VACCINE (#1)] Future Scheduled 2019-02-[address] [facility] 00:00:00 WELLNESS (YEAR 2 or Medical Center FIRST YEAR if no IPPE) [code = MEDICARE ANNUAL WELLNESS (YEAR 2 or FIRST YEAR if no IPPE)] Future Scheduled 2019-02-[address] [facility] [facility] 00:00:00 WELLNESS (YEAR 2 or Medical Center FIRST YEAR if no IPPE) [code = MEDICARE ANNUAL WELLNESS (YEAR 2 or FIRST YEAR if no IPPE)] Future Scheduled 2018-12-[address] [facility] Test 00:00:00 0-64 YRS (1 of 2 - Medical C enter PPSV23) [code = PNEUMOCOCCAL VACCINE 0-64 YRS (1 of 2 - PPSV23)] Future Scheduled 2006 SHINGLES VACCINES ([address] [facility] Test 00:00:00 2) [code = [facility] VACCINES (1 of 2)] Future Scheduled 2006 Screening for malignant [facility] Test 00:00:00 neoplasm of colon (procedure) [code = 328136513] Future Scheduled 2006 SHINGLES VACCINES ([address] [facility] Test 00:00:00 2) [code = [facility] VACCINES (1 of 2)] Future Scheduled 2006 Screening for malignant [facility] Test 00:00:00 neoplasm of colon (procedure) [code = 499091195] Future Scheduled 1961 COVID-19 Vaccine (1) [facility] 00:00:00 [code = COVID-19 Vaccine (1)] Future Scheduled 1957-05-31 COVID-19 Vaccine (#1) [facility] 00:00:00 [code = COVID-19 Vaccine (#1)] Future Scheduled 1956 Fluoride Varnish [code [facility] 00:00:00 = Fluoride Varnish] Future Scheduled 1956 CT Colonography (combo) [facility] Test 00:00:00 [code = CT Colonography [facility] (combo)] Future Scheduled 1956 Screening for malignant [facility] Test 00:00:00 neoplasm of colon Medical Ce nter (procedure) [code = 687684161] Future Scheduled 1956 Screening for malignant [facility] Test 00:00:00 neoplasm of colon Medical Ce nter (procedure) [code = 754956523] Future Scheduled 1956 Sigmoidoscopy [code = [facility] 00:[facility]00 Sigmoidoscopy] Medical Cente r Encounters Start End Encounter Admission Attending Care Care Encounter Source Date/Time Date/Time Type Type Clinicians Facility Department ID 2021-03-28 Emergency [facility] [id number] [facility] 2021-03-27 Emergency [facility] [id number] [facility]53 [facility] 2019[id number] 16:51:00 [facility] 2022-03-23 2022-03-23 Outpatient [facility] [id number] [facility] 00:00:00 00:00:00 2022-03-09 2022-03-09 Outpatient [facility] [id number] SLE 00:00:00 00:00:00 2022-03-09 2022-03-09 Outpatient [facility] [id number] SLE 00:00:00 00:00:00 [facility] 2022-03-09 2022-03-09 Outpatient [facility]ING [facility] [id number] SLE 00:00:00 00:00:00 [facility] 2022-01-21 2022-01-21 Documentat Myke [facility] [id number] 00:[facility] 00:00[facility]00 [facility] 2022-01-18 2022-01-18 Maxineat Ramirez [facility] [id number] 00:00:00 00:00:00 devon [facility] 2022-01-17 2022-01-17 Documentat Albaro [facility] [id number] 00:00:00 00:00:00 devon Diez [facility] 2022-01-13 2022-01-13 Rios Guzmán [facility] [id number] 00:00:00 00:00:00 devon [facility] 2022-01-10 2022-01-10 [facility] [id number] 00:00:00 00:00:00 devon [facility] 2022-01-07 2022-01-07 [facility] [id number] 00:00:00 00:00:00 [facility] 2022-01-04 2022-01-04 [facility] [id number] 11:53:22 23:59:00 Encounter [facility] 2022-01-04 2022-01-04 Outpatient [facility] [id number] [facility] 11:53:22 23:59:00 [facility] 2021-12-26 2021-12-[address] [facility] ERT [id number] Univers 15:39:00 18:19:00 FELISHA schmitt [facility] 2021-12-26 2021-12-26 Emergency [facility] [id number] [id number] Univers 15:39:00 18:19:00 Felisha VENEGAS 350.1.13.10 aung Choudhury 4.2.7.2.686 [facility] [id number] [facility] 084 [address] 2021-12-23 2021-12-23 [facility] [id number] 00:00:00 00:00:00 Only [facility] 2021-12-23 2021-12-23 [facility] [id number] 00:00:00 00:00:00 [facility] 2021-12-22 2021-12-22 Office [facility] [id number] 11:00:00 11:36:33 Visit [facility] 2021-12-22 2021-12-22 Outpatient EL PADMINI SLE SLE [id number] SLEH 10:31:24 11:36:33 [facility] 2021-12-22 2021-12-22 Abstract Evelynjazmín [facility] [id number] 00:00:00 00:00:00 [facility] 2021-12-22 2021-12-22 Documentcarla [facility] [id number] 00:00:00 00:00:00 [facility] 2021-12-21 2021-12-21 Toni Steinberg [facility] [id number] 00:00:00 00:00:00 Only [facility] 2021-12-21 2021-12-21 [facility] [id number] 00:00:00 00:00:00 Only [facility] 2021-12-20 2021-12-20 Documentcarla [facility] [id number] 00:00:00 00:00:00 [facility] 2021-12-16 2021-12-16 Documentcarla Steinberg [facility] [id number] 00:00:00 00:00:00 ion [facility] 2021-12-09 2021-12-09 Documentcarla [facility] [id number] 00:00:00 00:00:00 [facility] 2021-12-08 2021-12-08 Outpatient EL SLEH SLEH [id number] SLEH 00:00:00 00:00:00 2021-12-06 2021-12-06 [facility] Padmini [facility] [id number] 09:26:33 23:59:00 Encounter [facility] 2021-12-06 2021-12-06 Outpatient PING [place], SLEH SLE [id number] SLEH 09:26:33 23:59:00 [facility] 2021-12-06 2021-12-06 [facility] [id number] 13:40:00 13:50:00 Only [facility] 2021-12-06 2021-12-06 Outpatient EL SLEH SLEH [id number] SLEH 13:38:35 13:38:35 2021-12-06 2021-12-06 [facility] [id number] 09:25:54 09:25:54 Encounter [facility] 2021-12-06 2021-12-06 Outpatient PING [place] SLEH SLE [id number] SLEH 09:25:54 09:25:54 [facility] 2021-12-06 2021-12-06 [facility] [id number] 09:25:37 09:25:37 Encounter [facility] 2021-12-06 2021-12-06 Outpatient PING [place] SLEH SLE [id number] SLEH 09:25:37 09:25:37 [facility] 2021-12-06 2021-12-06 Document [facility] [id number] 00:00:00 00:00:00 devon [facility] 2021-11-25 2021-11-25 Outpatient EL SLEH SLEH [id number] SLEH 00:00:00 00:00:00 2021-11-25 2021-11-25 Outpatient PING CARRASCORI SLEH SLEH [id number] SLEH 00:00:00 00:00:00 [facility] 2021-11-25 2021-11-25 Outpatient EL RENNYRI, SLEH SLEH [id number] SLEH 00:00:00 00:00:00 [facility] 2021-11-25 2021-11-25 Outpatient EL RENNYRI SLEH SLEH [id number] SLEH 00:00:00 00:00:00 [facility] 2021-11-08 2021-11-08 Documentat Guzmán, [facility] [id number] 00:00:00 00:00:00 [facility] 2021-11-08 2021-11-08 Documentat Guzmán, [facility] [id number] 00:00:00 00:00:00 [facility] 2021-10-22 2021-10-22 Outpatient [facility] [id number] Devoted 09:00:00 09:00:00 [id number] [facility] 2021-09-30 2021-09-30 Documentat Guzmán, [facility] [id number] 00:00:00 00:00:00 [facility] 2021-09-28 2021-09-28 Petra Irvin [facility] [id number] 00:00:00 00:00:00 [facility] 2021-09-08 2021-09-08 Outpatient PING [place], [facility] SLE [id number] SLE 09:55:52 10:29:39 [facility] 2021-09-08 2021-09-08 Office Padmini [facility] [id number] 09:30:00 10:29:39 Visit [facility] 2021-09-08 2021-09-08 Toni Steinberg [facility] [id number] 00:00:00 00:00:00 Only [facility] 2021-09-06 2021-09-06 Documentat Ramirez [facility] [id number] 00:00:00 00:00:00 [facility] 2021-09-02 2021-09-02 Documentat Idris [facility] [id number] 00:00:00 00:00:00 [facility] 2021-08-30 2021-08-30 Documentat Ramirez [facility] [id number] 00:00:00 00:00:00 devon [facility] 2021-08-30 2021-08-30 Rios Steinberg [facility] [id number] 00:00:00 00:00:00 devon Mendiola [facility] 2021-08-26 2021-08-26 [facility] [id number] 08:46:32 23:59:00 Encounter [facility] 2021-08-26 2021-08-26 Outpatient PING WASHINGTNO [facility] SLE [id number] SLEH 08:46:32 23:59:00 [facility] 2021-08-26 2021-08-26 [facility] [id number] 09:00:00 09:10:00 Only [facility] 2021-08-26 2021-08-26 [facility] [id number] 08:42:22 08:45:00 Encounter [facility] 2021-08-26 2021-08-26 Outpatient [place]ING [place] SLE SLEH [id number] SLEH 08:42:22 08:45:00 [facility] 2021-08-26 2021-08-26 Outpatient EL SLEH SLEH [id number] SLEH 08:20:55 08:20:55 2021-08-26 2021-08-26 Outpatient EL SLEH SLEH [id number] SLEH 00:00:00 00:00:00 2021-08-16 2021-08-16 [facility] [id number] 00:00:00 00:00:00 devon [facility] 2021-08-16 2021-08-16 [facility] [id number] 00:00:00 00:00:00 devon [facility] 2021-08-05 2021-08-05 Rios Steinberg [facility] [id number] 00:00:00 00:00:00 [facility] 2021-08-02 2021-08-02 Toni Idris [facility] [id number] 00:00:00 00:00:00 Only [facility] 2021-07-28 2021-07-28 Outpatient PING [place], [facility] SLE [id number] SLE 09:06:24 09:58:24 [facility] 2021-07-28 2021-07-28 Office Padmini [facility] [id number] 09:00:00 09:58:24 Visit [facility] 2021-07-27 2021-07-27 Rios Guzmán [facility] [id number] 00:00:00 00:00:00 [facility] 2021-07-27 2021-07-27 Toni Steinberg [facility] [id number] 00:00:00 00:00:00 Only [facility] 2021-07-26 2021-07-26 Rios Guzmán [facility] [id number] 00:00:00 00:00:00 [facility] 2021-07-26 2021-07-26 Rios Guzmán [facility] [id number] 00:00:00 00:00:00 [facility] 2021-07-14 2021-07-14 Outpatient SLE SLEH [id number] SLEH 00:00:00 00:00:00 2021-07-12 2021-07-12 Rios Steinberg [facility] [id number] 00:00:00 00:00:00 [facility] 2021-07-07 2021-07-07 Outpatient EL SLE SLEH [id number] SLEH 00:00:00 00:00:00 2021-07-07 2021-07-07 Documentat Ramirez [facility] [id number] 00:00:00 00:00:00 devon [facility] 2021-06-28 2021-06-28 Rios Steinberg [facility] [id number] 00:00:00 00:00:00 devon Guillaumeio Maury [facility] 2021-06-28 2021-06-28 Documentcarla Steinberg [facility] [id number] 00:00:00 00:00:00 [facility] 2021-06-27 2021-06-27 Telephone Maureen [facility] [id number] 00:00:00 00:00:00 [facility] 2021-06-27 2021-06-27 Telephone Maureen [facility] [id number] 00:00:00 00:00:00 [facility] 2021-05-24 2021-05-24 [facility] [id number] [id number] Univers 00:00:00 00:00:00 Pearl VENEGAS 350.1.13.10 i [facility] [id number] Anyi REZA [id number] [address] 2021-05-14 2021-05-14 Document [facility] [id number] [id number] 00:00:00 00:00:00 [facility] 2021-05-14 2021-05-14 [facility]at [facility] [id number] 00:00:00 00:00:00 [facility] 2021-05-13 2021-05-13 Abstract Elsa [facility] [id number] 00:00:00 00:00:00 [facility] 2021-05-13 2021-05-13 Abstract Elsa [facility] [id number] 00:00:00 00:00:00 [facility] 2021-05-12 2021-05-12 Outpatient PING CANELA SLE [id number] SLEH 00:00:00 00:00:00 2021-05-10 2021-05-10 Telephone Steinberg, [facility] [id number] 00:00:00 00:00:00 [facility] 2021-05-10 2021-05-10 [facility] [id number] 00:00:00 00:00:00 [facility] 2021-05-03 2021-05-03 Documentat [facility] [id number] 00:00:00 00:00:00 [facility] 2021-05-03 2021-05-03 [facility] [id number] 00:00:00 00:00:00 [facility] 2021-04-29 2021-04-29 [facility] [id number] 10:09:55 23:59:00 Encounter [facility] 2021-04-29 2021-04-29 [facility] [id number] 10:09:55 23:59:00 Encounter [facility] 2021-04-29 2021-04-29 Outpatient PING W[place] [facility] SLE [id number] SLE 10:09:55 23:59:00 [facility] 2021-04-29 2021-04-29 [facility] [id number] 12:00:00 12:10:00 Only [facility] 2021-04-29 2021-04-29 Outpatient ROLA [place] SLE [id number] SLEH 10:09:10 10:08:00 [facility] 2021-04-29 2021-04-29 [facility] [id number] 10:00:00 10:08:00 Encounter [facility] 2021-04-29 2021-04-29 [facility] [id number] 10:00:00 10:08:00 Encounter [facility] 2021-04-29 2021-04-29 [facility] [id number] 09:35:14 09:59:00 Encounter [facility] 2021-04-29 2021-04-29 [facility] [id number] 09:35:14 09:59:00 Encounter [facility] 2021-04-29 2021-04-29 Outpatient PING [place] [facility] SLE [id number] SLEH 09:35:14 09:59:00 [facility] 2021-04-29 2021-04-29 Outpatient [place]ING [place] SLE SLE [id number] SLEH 09:35:00 09:34:00 [facility] 2021-04-29 2021-04-29 [facility] [id number] 09:00:00 09:34:00 Encounter [facility] 2021-04-29 2021-04-29 [facility] [id number] 09:00:00 09:34:00 Encounter [facility] 2021-04-29 2021-04-29 Orders Padmini, [facility] [id number] 08:33:09 08:43:09 Only [facility] 2021-04-29 2021-04-29 Outpatient PING SLE SLE [id number] SLEH 08:33:09 08:33:09 2021-04-29 2021-04-29 Outpatient PADMINI [facility] SLE [id number] SLEH 00:00:00 00:00:00 [facility] 2021-04-02 2021-04-02 Tele[place] [id number] [id number] Univers 00:00:00 00:00:00 Pearl VENEGAS 350.1.13.10 i ty of [id number] [address] 2021-04-01 2021-04-01 Emergency X GARRETT, [facility] ERT [id number] Univers 13:07:00 15:37:00 CHANDRAKANT wassermangaurang [facility] 2021-04-01 2021-04-01 Emergency [facility] [id number] [id number] Univers 13:07:00 15:37:00 Chandrakant VENEGAS 350.1.13.10 i ty of [place] [id number] [facility] [place] [id number] [address] 2021-03-18 2021-03-18 [facility] [id number] 00:00:00 00:00:00 Only [facility] 2021-03-18 2021-03-18 [facility] [id number] 00:00:00 00:00:00 Only [facility] 2021-03-16 2021-03-16 [facility] 12.840.114 [id number] Univers 00:00:00 00:00:00 Pearl Venegas 350.1.13.10 [id number] [id number] [address] 2021-03-15 2021-03-15 [facility] 1.2.840.114 [id number] Univers 00:00:00 00:00:00 Pearl Venegas 350.1.13.10 i [place] [id number] [address] 2021-03-12 2021-03-12 [facility] [id number] 12:16:00 15:05:00 Encounter [facility] 2021-03-12 2021-03-12 [facility], [facility] [id number] 12:16:00 15:05:00 Encounter [facility] 2021-03-12 2021-03-12 Outpatient PING [place], [facility] Radiology [id number] SLE 06:21:33 15:05:00 [facility] 2021-03-12 2021-03-12 Abstract Yohannes, [facility] [id number] 00:00:00 00:00:00 [facility] 2021-03-12 2021-03-12 Abstract [place], [facility] [id number] 00:00:00 00:00:00 [facility] 2021-03-10 2021-03-10 Document [facility] [id number] 00:00:00 00:00:00 [facility] 2021-03-10 2021-03-10 [facility] [id number] 00:00:00 00:00:00 Only [facility] 2021-03-10 2021-03-10 Documentat Guzmán, [facility] [id number] 00:00:00 00:00:00 [facility] 2021-03-10 2021-03-10 Orders Derik, [facility] [id number] 00:00:00 00:00:00 Only [facility] 2021-02-23 2021-02-23 [facility] [id number] 09:28:20 23:59:00 Encounter [facility] 2021-02-23 2021-02-23 [facility], [facility] [id number] 09:28:20 23:59:00 Encounter [facility] 2021-02-23 2021-02-23 Outpatient PING WASHINGTON [facility] SLE [id number] SLEH 00:00:00 23:59:00 AMBERLY 2021-02-23 2021-02-23 Outpatient SLE SLE [id number] SLEH 10:02:57 10:02:57 2021-02-23 2021-02-23 Outside [facility] [id number] 00:00:00 00:00:00 Orders [facility] 2021-02-23 2021-02-23 Outside [facility] [id number] 00:00:00 00:00:00 Orders [facility] 2021-02-05 2021-02-05 Outpatient Juan J GUIDRY [facility] [id number] Univers 10:50:00 10:50:00 TAM schmitt [facility] 2021-02-05 2021-02-05 Imm/Inj Nurse, Adc Pob Immunization [facility] 1.2.840.114 [id number] Univers 10:46:45 10:47:11 Visit Tam Guidry 350.1.13 .10 [facility] 4.2.7.2.686 Anyi Reza [id number] [address] 2021-02-04 2021-02-04 Documentat Guzmán, [facility] [id number] 00:00:00 00:00:00 [facility] 2021-02-04 2021-02-04 Documentat Guzmán, [facility] [id number] 00:00:00 00:00:00 [facility] 2021-02-04 2021-02-04 Documentat Guzmán, [facility] [id number] 00:00:00 00:00:00 [facility] 2021-02-04 2021-02-04 Documentat Guzmán, [facility] [id number] 00:00:00 00:00:00 [facility] 2021-02-04 2021-02-04 Documentat Ramirez, [facility] [id number] 00:00:00 00:00:00 [facility] 2021-02-04 2021-02-04 Rios Guzmán [facility] [id number] 00:00:00 00:00:00 [facility] 2021-02-03 2021-02-03 Office Padmini [facility] [id number] 10:00:00 10:30:00 Visit [facility] 2021-02-03 2021-02-03 Office Padmini, [facility] [id number] 09:42:34 10:12:34 Visit [facility] 2021-02-03 2021-02-03 Outpatient SLEH SLEH [id number] [facility] 00:00:00 00:00:00 2021-02-03 2021-02-03 Rios Irvin [facility] [id number] 00:00:00 00:00:00 [facility] 2021-02-03 2021-02-03 Rios Sheffield [facility] [id number] [id number] 00:00:00 00:00:00 [facility] 2021-02-03 2021-02-03 Toni Steinberg [facility] [id number] 00:00:00 00:00:00 Only [facility] 2021-02-03 2021-02-03 Rios Irvin [facility] [id number] 00:00:00 00:00:00 [facility] 2021-02-03 2021-02-03 Rios Sheffield [facility] [id number] 00:00:00 00:00:00 [facility] 2021-02-03 2021-02-03 Toni Steinberg [facility] [id number] 00:00:00 00:00:00 Only [facility] 2021-02-02 2021-02-02 Telephone Guzmán, [facility] [id number] 00:00:00 00:00:00 [facility] 2021-02-02 2021-02-02 Telephone Guzmán, [facility] [id number] 00:00:00 00:00:00 [facility] 2021-01-28 2021-01-28 Document Guzmán, [facility] [id number] 00:00:00 00:00:00 ion [facility] 2021-01-28 2021-01-28 [facility] [id number] 00:00:00 00:00:00 [facility] 2021-01-25 2021-01-25 [facility] [id number] 00:00:00 00:00:00 ion [facility] 2021-01-25 2021-01-25 [facility] [id number] 00:00:00 00:00:00 [facility] 2021-01-21 2021-01-21 [facility], [facility] [id number] 10:27:08 23:59:00 Encounter [facility] 2021-01-21 2021-01-21 [facility] [id number] 10:27:00 10:27:00 Encounter [facility] 2021-01-21 2021-01-21 Orders Padmini [facility] [id number] 09:58:59 10:08:59 Only [facility] 2021-01-21 2021-01-21 Outpatient JOSÉ ANTONIO [facility] [id number] [facility] 00:00:00 00:00:00 [facility] 2021-01-21 2021-01-21 Outpatient KHADERI, SLEH SLEH [id number] [facility] 00:00:00 00:00:00 [facility] 2021-01-21 2021-01-21 Outpatient EL SLEH SLEH [id number] [facility] 00:00:00 00:00:00 2020-12-30 2020-12-30 Outpatient SLEH SLEH [id number] [facility] 00:00:00 00:00:00 2020-12-17 2020-12-17 Outpatient EL SLEH SLEH [id number] [facility] 00:00:00 00:00:00 2020-12-17 2020-12-17 Outpatient PADMINI, SLE SLE [id number] [facility] 00:00:00 00:00:00 [facility] 2020-12-17 2020-12-17 Outpatient PADMINI, SLE SLE [id number] [facility]H 00:00:00 00:00:00 [facility] 2020-12-02 2020-12-02 Documentat Emil [facility] [id number] [facility] 00:[facility]00 00:00:00 ion [facility] 2020-11-26 2020-11-26 [facility] [id number] 13:14:00 18:00:00 Encounter [facility] 2020-11-26 2020-11-26 Outpatient EL SLE SLE [id number] [facility] 00:00:00 00:00:00 2020-11-18 2020-11-18 Abstract Yohannes [facility] [id number] 00:00:00 00:00:00 [facility] 2020-11-16 2020-11-16 Documentat Ramirez [facility] [id number] 00:00:00 00:00:00 dveon [facility] 2020-11-16 2020-11-16 Telephone Emil [facility] [id number] 00:00:00 00:00:00 [facility] 2020-11-10 2020-11-10 Toni Steinberg [facility] [id number] [facility] 00:00:00 00:00:00 Only Eddie Maury [facility] 2020-11-05 2020-11-05 Documentat Ramirez [facility] [id number] [facility] 00:[facility]:00 00:00:00 ion [facility] 2020-11-04 2020-11-04 Office System, [facility] [id number] 09:38:44 10:38:44 Visit Provider [facility] 2020-11-04 2020-11-04 Outpatient EL [facility] [id number] [facility] 00:00:00 00:00:00 2020-10-28 2020-10-28 Office [place], [facility] [id number] [facility] 08:37:21 10:38:34 Visit [facility] 2020-10-28 2020-10-28 Outpatient [facility] [id number] [facility] 00:00:00 00:00:00 2020-10-28 2020-10-28 Outpatient EL [facility] [id number] [facility] 00:00:00 00:00:00 2020-10-28 2020-10-28 Telephone Albaro [facility] [id number] [facility] 00:00:00 00:00:00 [facility] 2020-10-28 2020-10-28 Documentat Ramirez [facility] [id number] [facility] 00:00:00 00:00:00 devon [facility] 2020-10-27 2020-10-27 Telephone Ramirez [facility] [id number] [facility] 00:00:00 00:00:00 [facility] 2020-10-21 2020-10-21 Outpatient [facility] [id number] [facility] 00:00:00 00:00:00 2020-10-21 2020-10-21 Telephone Kimberley [facility] 1.2.840.114 [id number] Pati 00:00:00 00:00:00 [place] 350.1.13.10 [place] [phone] In dical nal 044 [facility] 2020-10-20 2020-10-20 Toni Steinberg [facility] [id number] 00:00:00 00:00:00 Only Eddie Mendiola [facility] 2020-10-19 2020-10-19 Telephone Albaro [facility] [id number] 00:00:00 00:00:00 [facility] 2020-10-19 2020-10-19 Documentat [facility] [id number] 00:00:00 00:00:00 [facility] 2020-10-15 2020-10-15 Documentat [facility] [id number] 00:00:00 00:00:00 devon [facility] 2020-10-14 2020-10-14 Telemedici [facility] 1.2.840.114 [id number] Univers 11:21:55 11:27:44 ne Visit Pearl Venegas 350.1.13.10 [place] [phone] In dical [address] 2020-10-14 2020-10-14 [facility] [id number] Univers 09:20:00 09:20:00 [facility] [id number] [facility]-14 2020-10-14 Outpatient R KIMBERLEY [facility] [id number] Univers 09:20:00 09:20:00 [facility] 2020-10-13 2020-10-13 [facility] 1.2.840.114 [id number] Univers 00:00:00 00:00:00 Pearl Veneg[place] 350.1.13.10 [place] [phone] [address] 2020-10-12 2020-10-12 Documentat Idris, [facility] [id number] 00:00:00 00:00:00 ion [facility] 2020-10-08 2020-10-08 [facility] [id number] 09:30:00 23:59:00 Encounter [facility] 2020-10-08 2020-10-08 Orders PING Carrascomn, [facility] [id number] 10:50:16 11:05:16 Only [facility] 2020-10-08 2020-10-08 [facility] [id number] 08:45:00 09:29:00 Encounter [facility] 2020-10-08 2020-10-08 Outpatient EVELYNADERI, [facility] [id number] [facility] 00:00:00 00:00:00 [facility] 2020-10-08 2020-10-08 Outpatient EL EVELYNADERI, [facility]H [facility] [id number] [facility] 00:00:00 00:00:00 [facility] 2020-10-08 2020-10-08 Outpatient SLEH SLEH [id number] [facility] 00:00:00 00:00:00 2020-10-08 2020-10-08 Outpatient EL EVELYNADERI, [facility]H [facility] [id number] [facility] 00:00:00 00:00:00 [facility] 2020-10-08 2020-10-08 Outpatient EVELYNADERI, [facility]H SLEH [id number] [facility] 00:00:00 00:00:00 [facility] 2020-10-08 2020-10-08 Outpatient EVELYNADERI, [facility]H SLEH [id number] [facility] 00:00:00 00:00:00 [facility] 2020-10-08 2020-10-08 [id number] 00:00:00 00:00:00 Only [facility] 2020-09-21 2020-09-21 Orders Idris, [facility] [id number] 00:00:00 00:00:00 Only Eddie Mendiola [facility] 2020-09-11 2020-09-11 Telephone Ruba [facility] [id number] 00:[facility]00 00[facility]00[facility]00 [facility]-21 2020-09-10 Inpatient [place], [facility] ENDO [id number] [facility] 07:00:00 11:10:20 Anil Avila [facility] 2020-09-10 2020-09-10 Documentat Ramirez, [facility] [id number] 00:00:00 00:00:00 ion Jeffrey [facility] 2020-09-03 2020-09-03 Documentat Mauricio [facility] [id number] 00:00:00 00:00:00 ion Samira Arita [facility] 2020-09-02 2020-09-02 Documentat Emil [facility] [id number] [facility] 00:[facility]:00 00:00:00 ion Marta iLndsey [facility] 2020-09-02 2020-09-02 Telephone Iker [facility] [id number] 00:00:00 00:00:00 Vicky [facility] 2020-09-01 2020-09-01 Hospital Tiny Dan [facility] [id number] 10:00:00 23:59:00 Pascale [facility] 2020-09-01 2020-09-01 Follow-Up PING Lurdesjudithlelosergio [facility] [id number] 09:48:56 10:18:56 Nickie [facility] 2020-09-01 2020-09-01 Outpatient [facility] [id number] SLE 00:00:00 00:00:00 2020-09-01 2020-09-01 Outpatient JOSE FRANCISCO WHITEHEAD [facility] [id number] SLE 00:00:00 00:00:00 2020-09-01 2020-09-01 Telephone Iker [facility] [id number] 00:00:00 00:00:00 Vicky [facility] 2020-09-01 2020-09-01 Documentat Mauricio [facility] [id number] 00:00:00 00:00:00 devon Arita [facility] 2020-08-31 2020-08-31 Telephone Emil [facility] [id number] 00:00:00 00:00:00 Marta Lindsey [facility] 2020-08-19 2020-08-19 Emergency [facility] 1.2.840.114 [id number] 07:35:00 10:07:00 Wendy Venegas 350.1.13.10 [place] 4[place]2.7.2.686 [place] [id number] [id number] 2020-08-19 2020-08-19 Emergency [facility] 1.2.840.114 [id number] [facility] 07:35:00 10:07:00 Wendy Venegas 350.1.13.10 [place] 4.2.7.2.686 [facility] [phone] [facility] [address] 2020-08-19 2020-08-19 Orders Doctor LICONA 1.2.840.114 [id number] 00:00:00 00:00:00 Only Unassigned, [place] 350.1.13.10 [place] [facility] 4.2.7.2.686 [id number] 009 2020-08-19 2020-08-19 Orders Doctor MONAE 1.2.840.114 [id number] Univers 00:00:00 00:00:00 Only Unassigned, TOY 350.1.13.10 it[place] [facility] 4.2.7.2.686 [facility] [phone] [facility] [address] 2020-08-03 2020-08-03 Tamiko Chu [facility] 1.2.840.114 [id number] 00:00:00 00:00:00 Pearl Venegas 350.1.13.10 [place] 4.2.7.2.686 Professio [phone] nal [address] [place] [address] 2020-08-03 2020-08-03 Tamiko Chu [facility] 1.2.840.114 [id number] Univers 00:00:00 00:00:00 Pearl Venegas 350.1.13.10 [place] [phone] In dical nal 044 [facility] 2020-07-19 2020-07-19 Immunizati Covid [facility] [id number] [facility] 13:46:40 13:56:40 on German [place] [facility] 2020-07-19 2020-07-19 Outpatient EL SLE SLEH [id number] [facility] 00:00:00 00:00:00 2020-07-19 2020-07-19 Documentat Estela [facility] [id number] [facility] 00:00:00 00:00:00 ion [facility] 2020-07-18 2020-07-18 Outpatient EL SLE SLE [id number] SLEH 00:00:00 00:00:00 2020-06-28 2020-06-28 Outpatient SLEH SLEH [id number] [facility] 00:00:00 00:00:00 2020-06-25 2020-06-25 Emergency [facility] [id number] [id number] 17:04:00 23:09:00 Carolina Veneg[place] 350.1.13.10 [place] 4.2.7.2.686 [place] [phone] [facility] 2020-06-25 2020-06-25 Emergency [facility] [id number] [id number] [facility] 17:04:00 23:09:00 Carolina Venegas 350.1.13.10 [place] [phone] [facility] [address] 2020-06-25 2020-06-25 Orders Doctor LICONA 1.2.840.114 [id number] 00:00:00 00:00:00 Only Unassigned, TOY 350.1.13.10 [place] [facility] 4.2.7.2.686 [id number] 009 2020-06-25 2020-06-25 Orders Doctor MONAE 1.2.840.114 [id number] Univers 00:00:00 00:00:00 Only Unassigned, TOY 350.1.13.10 [place] [facility] 4.2.7.2.686 Bryce as [phone] [address] 2020-06-22 2020-06-22 Refill [facility] 1.2.840.114 [id number] 00:00:00 00:00:00 Pearl Venegas 350.1.13.10 [place] 4.2.7.2.686 Professio [phone] nal [address] [place] [address] 2020-06-22 2020-06-22 Refill [facility] 1.2.840.114 [id number] Univers 00:00:00 00:00:00 Pearl Venegas 350.1.13.10 [place] [phone] In dical [address] 2020-03-13 2020-03-13 Outpatient EL SLEH SLEH [id number] [facility] 00:00:00 00:00:00 2020-03-13 2020-03-13 Outpatient SLEH SLEH [id number] [facility]H 00:00:00 00:00:00 2020-03-13 2020-03-13 Outpatient JESSICA, SLEH SLEH [id number] SLEH 00:00:00 00:00:00 RISE 2020-03-13 2020-03-13 Outpatient EL KHADERI, [facility]H SLEH [id number] SLEH 00:00:00 00:00:00 AMBERLY 2020-02-18 2020-02-18 Outpatient SLEH SLEH [id number] [facility]H 00:00:00 00:00:00 2020-02-18 2020-02-18 Outpatient EL SLEH SLEH [id number] SLEH 00:00:00 00:00:00 2020-02-18 2020-02-18 Outpatient SLEH SLE [id number] SLEH 00:00:00 00:00:00 2020-02-05 2020-02-05 Outpatient SLEH SLEH [id number] [facility]H 00:00:00 00:00:00 2020-02-05 2020-02-05 Outpatient PADMINI, SLEH SLEH [id number] SLEH 00:00:00 00:00:00 AMBERLY 2020-02-05 2020-02-05 Outpatient SLEH SLEH [id number] SLEH 00:00:00 00:00:00 2020-01-28 2020-01-28 Outpatient EL SLEH SLEH [id number] SLEH 00:00:00 00:00:00 2020-01-14 2020-01-14 Outpatient EL SLEH SLE [id number] SLEH 00:00:00 00:00:00 2019-09-11 2019-09-11 Telephone [facility] 1.2.840.114 [id number] 00:00:00 00:00:00 Pearl Venegas 350.1.13.10 [place] 4.2.7.2.686 Professio [phone] nal [address] [place] [address] 2019-09-11 2019-09-11 Telephone [facility] 1.2.840.114 [id number] Univers 00:00:00 00:00:00 Pearl Venegas 350.1.13.10 [place] [phone] In dical [address] 2019-08-20 2019-08-20 Outpatient SLE SLE [id number] SLEH 00:00:00 00:00:00 [id number] 2019-02-08 2019-02-08 Orders Doctor LICONA 1.2.840.114 [id number] 00:00:00 00:00:00 Only UnassignedTOY 350.1.13.10 [facility] 4.2.7.2.686 [id number] 009 2019-02-08 2019-02-08 Orders Doctor LICONA 1.2.840.114 [id number] Univers 00:00:00 00:00:00 Only UnassignedTOY 350.1.13.10 [place] [facility] 4.2.7.2.686 Bryce as [phone] [address] 2019-01-31 2019-01-31 Orders Doctor MONAE 1.2.840.114 [id number] 00:00:00 00:00:00 Only Unassigned, TOY 350.1.13.10 [place] [facility] 4.2.7.2.686 [id number] 2019-01-31 2019-01-31 Orders Doctor MONAE 1.2.840.114 [id number] Univers 00:00:00 00:00:00 Only Unassigned, TOY 350.1.13.10 [place] [facility] 4.2.7.2.686 Bryce as [phone] [address] 2019-01-23 2019-01-23 Telephone Brenda Rod [facility] 1.2.840.114 [id number] 00:00:00 00:00:00 [place] 350.1.13.10 [place] 4.2.7.2.686 Professio [phone] [address] 2019-01-23 2019-01-23 Telephone Brenda Rod [facility] 1.2.840.114 [id number] [facility] 00:00:00 00:00:00 [place] 350.1.13.10 [place] [phone] [address] 2019-01-21 2019-01-21 Office Brenda Rod [facility] 1.2.840.114 [id number] 15:52:08 16:26:09 Visit [place] 350.1.13.10 [place] 4.2.7.2.686 Professio [phone] [address] 2019-01-21 2019-01-21 Office Brenda Rod [facility] 1.2.840.114 [id number] [facility] 15:52:08 16:26:09 Visit C [place] 350.1.13.10 [place] [phone] [address] 2019-01-17 2019-01-17 Orders Doctor LICONA 1.2.840.114 [id number] 00:00:00 00:00:00 Only Unassigned, TOY 350.1.13.10 [place] [facility] [id number] 2019-01-17 2019-01-17 Orders Doctor MONAE 1.2.840.114 [id number] Univers 00:00:00 00:00:00 Only Unassigned, TOY 350.1.13.10 [place] [facility] 4.2.7.2.686 Bryce as [phone] [address] 2019-01-07 2019-01-07 [place] Brenda Rod [facility] 1.2.840.114 [id number] Univers 00:00:00 00:00:00 [place] 350.1.13.10 [place] [phone] In dical nal [address] [place] [address] 2019-01-07 2019-01-07 Orders Doctor MONAE 1.2.840.114 [id number] Univers 00:00:00 00:00:00 Only Unassigned, TOY 350.1.13.10 [place] [facility] 4.2.7.2.686 Bryce as [phone] [address] 2019-01-02 2019-01-02 Orders Doctor MONAE 1.2.840.114 [id number] 00:00:00 00:00:00 Only Unassigned, TOY 350.1.13.10 [place] [facility] 4.2.7.2.686 [id number] 2019-01-02 2019-01-02 Orders Doctor MONAE 1.2.840.114 [id number] Univers 00:00:00 00:00:00 Only Unassigned, TOY 350.1.13.10 [facility] [facility] 4.2.7.2.686 Bryce as [phone] [address] 2019-01-02 2019-01-02 Refill Brenda Rod [facility] 1.2.840.114 [id number] Univers 00:00:00 00:00:00 [place] 350.1.13.10 [place] [phone] In dical nal 044 [facility] 2018-12-28 2018-12-28 Orders Doctor MONAE 1.2.840.114 [id number] 00:00:00 00:00:00 Only Unassigned, TOY 350.1.13.10 [place] [facility] 4.2.7.2.686 [id number] 009 2018-12-28 2018-12-28 Orders Doctor MONAE 1.2.840.114 [id number] Univers 00:00:00 00:00:00 Only Unassigned, TOY 350.1.13.10 [facility] [facility] 4.2.7.2.686 Bryce as [phone] [address] 2018-12-21 2018-12-21 Telephone Brenda Rod [facility] 1.2.840.114 [id number] Univers 00:00:00 00:00:00 C [place] 350.1.13.10 [place] [phone] In dical nal [address] [place] [address] 2018-12-17 2018-12-17 Orders Doctor MONAE 1.2.840.114 [id number] Univers 00:00:00 00:00:00 Only Unassigned, TOY 350.1.13.10 [place] [facility] 4.2.7.2.686 Rbyce as [phone] [address] 2016-10-19 2016-10-19 Orders Doctor LICONA 1.2.840.114 [id number] 00:00:00 00:00:00 Only Unassigned, TOY 350.1.13.10 [place] [facility] 4.2.7.2.686 [id number] 2016-10-19 2016-10-19 Orders Doctor MONAE 1.2.840.114 [id number] Univers 00:00:00 00:00:00 Only Unassigned, TOY 350.1.13.10 [facility] [facility] 4.2.7.2.686 Bryce as [phone] [address] 2016-10-13 2016-10-13 Orders Doctor MONAE 1.2.840.114 [id number] Univers 00:00:00 00:00:00 Only Unassigned, TOY 350.1.13.10 [place] [facility] 4.2.7.2.686 Bryce as [phone] [facility] [address] Results Test Description Test Time Test Comments Results Result Comments Source Ferritin 2022-01-08 09:52:00 Test Item Value Reference Range Interpretation Comme nts Ferritin, Serum (test code = 2276-4) 16 ng/mL 24-380 L Lab Interpretation (test code = 19139-4) Abnormal [facility] platelet count + automated [id number] 09:52:00 Test Item Value Reference Range Interpretation Comments WBC (test code = 7.2 See_Comment [Automated message] ) The system [employer] generated this result transmit lisa reference range : 3.8 - 10.8 Thousand /uL. The reference r mela was not used to interpret this result as normal/abnormal . RBC (test code = 789-8) 4.03 See_Comment L [Au tomated message] The system [employer] generated this result transmit lisa reference range : 4.20 - 5.80 Million/uL. The reference range was not used to interpret this result as normal/abnormal . Hemoglobin (test code = 7.9 g/dL 13.2-17.1 L ) Hematocrit (test code = 27.5 % 38.5-50.0 L ) MCV (test code = 68.2 fL 80.0-100.0 L ) MCH (test code = 19.6 pg 27.0-33.0 L ) MCHC (test code = 28.7 g/dL 32.0-36.0 L ) RDW (test code = 20.6 % 11.0-15.0 H ) Platelets (test code = 66 See_Comment L [Aut omated message] ) The system [employer] generated this result transmit lisa reference range : 140 - 400 Thousand/ uL. The reference r mela was not used to interpret this result as normal/abnormal . MPV (test code = 7.5-12.5 Due to plat elet or 5114211) RBC variability in size or shapeth e result cannot b e reported accura tely. # Neutros (test code = 4284 See_Comment [Aut omated message] 20191222) The system [employer] generated this result transmit lisa reference range : 1,500 - 7,800 cells/uL. The reference range was not used to interpret this result as normal/abnormal . # Lymphs (test code = 1879 See_Comment [Auto mated message] 731-0) The system [employer] generated this result transmit lisa reference range : 850 - 3,900 cells/u L. The reference r mela was not used to interpret this result as normal/abnormal . # Monos (test code = 871 See_Comment [Autom ated message] ) The system [employer] generated this result transmit lisa reference range : 200 - 950 cells/uL. The reference range was not used to interpret this result as normal/abnormal . # Eos (test code = 108 See_Comment [Automat ed message] 1-2) The system [employer] generated this result transmit lisa reference range : 15 - 500 cells/uL. The reference range was not used to interpret this result as normal/abnormal . # Baso (test code = 58 See_Comment [Automa lisa message] 4-7) The system [employer] generated this result transmit lisa reference range : 0 - 200 cells/uL. T he reference range was not used to interpret this result as normal/abnormal . % Neutros (test code = 59.5 % ) % Lymphs (test code = 26.1 % 20191219) % Monos (test code = 12.1 % ) % Eos (test code = 1.5 % 20191217) % Baso (test code = 0.8 % 20191218) Lab Interpretation (test Abnormal code = 30028-4) [facility], % sat. (without ferritin)2022-01-08 09:52:00 Test Item Value Reference Range Interpretation Comments Iron (test code = 21 See_Comment L [Automate d message] ) The system [employer] generated this result transmitted ref erence range: 50 - 180 mcg/dL. The ref erence range was not u sed to interpret this result as normal/abnor mal. Iron Bind.Cap.(TIBC) 309 See_Comment [Autom ated message] (test code = 2495883) The sy stem which generated this result transmitted ref erence range: 250 - 42 5 mcg/dL (calc). The reference range was not used to int erpret this result as normal/abnormal . Iron % Saturation (test 7 See_Comment L [Au tomated message] code = 6333226) The system [employer] generated this result transmitted ref erence range: 20 - 48 % (calc). The ref erence range was not u sed to interpret this result as normal/abnor mal. Lab Interpretation (test Abnormal code = 27439-1) [facility] [id number] 09:52:00 Test Item Value Reference Range Interpretation Comments Platelet Estimate (test code = DECREASED ADEQUATE A 55448-5) Lab Interpretation (test code = Abnormal 71976-3) [facility], BRAIN, [id number] 15:47:00REFERRING MD: ANIL SALVADOR Unlisted Reason for Exam - Click Yes and Enter Reason Below- >Yes Unlisted Reason for Exam->1.3 cm midbrain/cisternal lesion [facility]ARD[facility] : 1955 Sex: MFINAL REPORT MRI Brain with and without contrast CLINICAL HISTORY: Unlisted Reason for Exam1.3 cm midbrain/cisternal lesion Technique: MRI of the brain utilizing axial T1, T2, FLAIR, GRE, DWI, sagittal T1; and postgadolinium axial, sagittal, and coronal T1-weighted images. Comparisons: CT head 10/28/2018 Findings:Superior cistern T1 hyperintense 2.2 x 1.2 x 1.4 cm lesion without appreciableenhancement. No DWI hyperintensity. No evidence of acute infarct, midline shift or hydrocephalus. Mild generalized brain parenchymal volume loss. Nonspecific T2 FLAIR hyperintensities typical of chronic microangiopathic ischemic changes present. Orbits and globes are unremarkable. Left maxillary sinusmucus retention cyst present. Heterogeneous marrow signal can be seen in osteopenia. No destructive osseous lesion. 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 Involutional and mild chronic microvascular ischemic changes. Signed: Efrain Navarrete MDReport Verified Date/Time: 01/04/2022 15:47:33 CBC WITH [id number] 22:20:29 Test Item Value Reference Range Interpretation Comments WBC (test code = See_Comment H [Automated 6690-2) message] The system which generated this result transmitted reference range : 4.20 - 10.70 10*3/?L. The reference range was not used to interpret this result as normal/abnormal . RBC (test code = See_Comment L [Automated 789-8) message] The system which generated this result transmitted reference range : 4.26 - 5.52 10*6/?L. The reference range was not used to interpret this result as normal/abnormal . HGB (test code = 7.8 g/dL 12.2-16.4 L 718-7) HCT (test code = 27.2 % 38.4-49.3 L 4544-3) MCV (test code = 66.8 fL 81.7-95.6 L 787-2) MCH (test code = 19.2 pg 26.1-32.7 L 785-6) MCHC (test code = 28.7 g/dL 31.2-35 L 786-4) RDW-SD (test code = 49.4 fL 38.5-51.6 72640-9) RDW-CV (test code = 20.9 % 12.1-15.4 H 788-0) PLT (test code = See_Comment L [Automated 777-3) message] The system which generated this result transmitted reference range : 150 - 328 10*3/?L. The reference range was not used to interpret this result as normal/abnormal . MPV (test code = Not Measure d 22892-1) NRBC/100 WBC (test See_Comment [Automat ed code = 6837691227) message] The system which generated this result transmitted reference range : 0.0 - 10.0 /100 WBCs. The reference range was not used to interpret this result as normal/abnormal . NRBC x10^3 (test code See_Comment [Auto mated = 4924891603) message] The system which generated this result transmitted reference range : 10*3/?L. The reference range was not used to interpret this result as normal/abnormal . GRAN MAT (NEUT) % 85.5 % (test code = 770-8) IMM GRAN % (test code 0.50 % = 4067847734) LYMPH % (test code = 7.6 % 736-9) MONO % (test code = 5.8 % 5905-5) EOS % (test code = 0.1 % 713-8) BASO % (test code = 0.5 % 706-2) GRAN MAT x10^3(ANC) 9.28 10*3/uL 1.99-6.95 H (test code = 9834327784) IMM GRAN x10^3 (test 0.05 10*3/uL 0-0.06 code = 1083875031) LYMPH x10^3 (test 0.82 10*3/uL 1.09-3.23 L code = 731-0) MONO x10^3 (test code 0.63 10*3/uL 0.36-1.02 = 742-7) EOS x10^3 (test code 0.06-0.53 L = 711-2) BASO x10^3 (test code 0.05 10*3/uL 0.01-0.09 = 704-7) PLT ESTIMATE (test Decreased Normal A code = 9317-9) MADALYN (test code = MADALYN) No Platelet clumps seen Lab Interpretation Abnormal (test code = 45370-3) [facility] METABOLIC PANEL (NA, K, CL, CO2, GLUCOSE, BUN, CREATININE, CA)2021-12-26 21:51:09 Test Item Value Reference Range Interpretation Comments NA (test code = 134 mmol/L 135-145 L 1625743641) K (test code = 3.7 mmol/L 3.5-5 7479663876) CL (test code = 105 mmol/L 98-108 5287277528) CO2 TOTAL (test code = 21 mmol/L 23-31 L 8911040307) AGAP (test code = 2-16 9973076658) BUN (test code = 5 mg/dL 7-23 L 7189767303) GLUCOSE (test code = 257 mg/dL 70-110 H 2954793649) CREATININE (test code = 0.61 mg/dL 0.6-1.25 6054439738) CALCIUM (test code = 7.9 mg/dL 8.6-10.6 L 1794304340) eGFR (test code = mL/min/1.73m2 2111118338) MADALYN (test code = MADALYN) Association of [...] tests). Lab Interpretation Abnormal (test code = 47841-4) [facility] METABOLIC [id number] 13:28:32 Test Item Value Reference Range Interpretation Comments SODIUM (BEAKER) 135 meq/L 136-145 L (test code = 381) POTASSIUM 3.7 meq/L 3.5-5.1 (BEAKER) (test code = 379) CHLORIDE (BEAKER) 107 meq/L 98-107 (test code = 382) CO2 (BEAKER) 23 meq/L 22-29 (test code = 355) BLOOD UREA 6 mg/dL 7-21 L NITROGEN (BEAKER) (test code = 354) CREATININE 0.68 mg/dL 0.57-1.25 (BEAKER) (test code = 358) GLUCOSE RANDOM 108 mg/dL 70-105 H (BEAKER) (test code = 652) CALCIUM (BEAKER) 8.0 mg/dL 8.4-10.2 L (test code = 697) EGFR (BEAKER) 103 Interpretatio n of eGFR (test code = mL/min/1.73 values Stage De scription 1092) sq m Result G1 Shahnaz l or high >=90 G2 Mildly decreased 60-89 G3a Mildl y to moderately 45-5 9 G3b Moderately to s everely 30-44 G4 Sever ly decreased 15-29 G5 Kidney failure <15Repo rted eGFR is based on the CKD-EPI 2020 equation t hat does not use a race coefficientEsti mated GFR is not as accur ate as Creatinine Bonita chaudhari in predicting glom erular filtration rate . Estimated GFR is not appl icable for dialysis patien ts Plant Quality Manager ID - BSSpecimen slightly ictericHEPATIC FUNCTION [id number] 13:28:32 Test Item Value Reference Range Interpretation Comments TOTAL PROTEIN (BEAKER) (test code = 6.2 gm/dL 6.0-8.3 770) ALBUMIN (BEAKER) (test code = 1145) 2.9 g/dL 3.5-5.0 L BILIRUBIN TOTAL (BEAKER) (test code 2.0 mg/dL 0.2-1.2 H = 377) BILIRUBIN DIRECT (BEAKER) (test 1.0 mg/dL 0.1-0.5 H code = 706) ALKALINE PHOSPHATASE (BEAKER) (test 148 U/L 40-150 code = 346) AST (SGOT) (BEAKER) (test code = 31 U/L 5-34 353) ALT (SGPT) (BEAKER) (test code = 21 U/L 6-55 347) Plant Quality Manager ID - BSSpecimen slightly ictericPROTHROMBIN [id number] 13:21:12 Test Item Value Reference Range Interpretation Comments PROTIME (BEAKER) 17.5 seconds 11.9-14.2 H (test code = 759) INR (BEAKER) (test 1.46 See_Comment [Automat ed message] code = 370) The system [employer] generated this result transmitted ref erence range: <=5.90. The reference range was not used to int erpret this result as normal/abnormal . RECOMMENDED COUMADIN/WARFARIN INR THERAPY RANGESSTANDARD DOSE: 2.0 - 3.0 Includes: PROPHYLAXIS for venous thrombosis, systemic embolization; TREATMENT for venous thrombosis and/or pulmonary embolus.HIGH RISK: Target INR is 2.5-3.5 for patients with mechanical heart valves.CBC W/PLT COUNT & AUTO [id number] 13:14:24 Test Item Value Reference Range Interpretation Comments WHITE BLOOD CELL COUNT 5.0 K/ L 3.5-10.5 (BEAKER) (test code = 775) RED BLOOD CELL COUNT 3.92 M/ L 4.63-6.08 L (BEAKER) (test code = 761) HEMOGLOBIN (BEAKER) 7.5 GM/DL 13.7-17.5 L (test code = 410) HEMATOCRIT (BEAKER) 26.6 % 40.1-51.0 L (test code = 411) MEAN CORPUSCULAR VOLUME 67.9 fL 79.0-92.2 L (BEAKER) (test code = 753) MEAN CORPUSCULAR 19.1 pg 25.7-32.2 L HEMOGLOBIN (BEAKER) (test code = 751) MEAN CORPUSCULAR 28.2 GM/DL 32.3-36.5 L HEMOGLOBIN CONC (BEAKER) (test code = 752) RED CELL DISTRIBUTION 21.2 % 11.6-14.4 H WIDTH (BEAKER) (test code = 412) PLATELET COUNT (BEAKER) 69 K/CU MM 150-450 L (test code = 756) MEAN PLATELET VOLUME Unable to report due (BEAKER) (test code = to abn ormal Platelet 754) population distribution. NUCLEATED RED BLOOD 0 /100 WBC 0-0 CELLS (BEAKER) (test code = 413) NEUTROPHILS RELATIVE 53 % PERCENT (BEAKER) (test code = 429) LYMPHOCYTES RELATIVE 30 % PERCENT (BEAKER) (test code = 430) MONOCYTES RELATIVE 14 % PERCENT (BEAKER) (test code = 431) EOSINOPHILS RELATIVE 3 % PERCENT (BEAKER) (test code = 432) BASOPHILS RELATIVE 1 % PERCENT (BEAKER) (test code = 437) NEUTROPHILS ABSOLUTE 2.66 K/ L 1.78-5.38 COUNT (BEAKER) (test code = 670) LYMPHOCYTES ABSOLUTE 1.51 K/ L 1.32-3.57 COUNT (BEAKER) (test code = 414) MONOCYTES ABSOLUTE 0.68 K/ L 0.30-0.82 COUNT (BEAKER) (test code = 415) EOSINOPHILS ABSOLUTE 0.13 K/ L 0.04-0.54 COUNT (BEAKER) (test code = 416) BASOPHILS ABSOLUTE 0.04 K/ L 0.01-0.08 COUNT (BEAKER) (test code = 417) IMMATURE 0 % 0-1 GRANULOCYTES-RELATIVE PERCENT (BEAKER) (test code = 2801) MR, ABDOMEN, [id number] 18:24:00REFERRING MD: ANIL SALVADOR Include Abdominal [facility]essels[facility] : 1955 Sex: MFINAL REPORT TECHNIQUE: MRI of the abdomen WITHOUT and WITH intravenous contrast. INDICATION: Liver disease, chronic, history of HCC, monitoring. COMPARISON: MRIs dating back to 09/01/2020. FINDINGS: LOWER THORAX: Unremarkable. LIVER: Nodular, cirrhotic liver. Focal liver observations as fol low:*Embolization cavity in segment VIII continues to decrease in size and has no residual tumor. This is best seen on delayed phase image 89. LR-TR nonviable*Atrium and cavity in segment II continued to decrease in size and has no residual nodular enhancement. This is best seen on axial arterial phase image 80. LR-TR nonviable*The previously seen arterially hyperenhancing observation in segment II is not as conspicuous on today's examination.*An arterially hyperenhancing observation in segment measures 1.1 cm on axial arterial phase image 77, unchanged. No washout or pseudocapsule formation. LI-RADS 3*An arterially hyperenhancing observation in segment II on axial arterial phase image 81 measures0.8 cm, previously 0.7 cm. LI-RADS 3 BILIARY: Gallbladder is unremarkable. No biliary ductal dilatation or filling defect.SPLEEN: 18 cm splenomegaly.PANCREAS: No focal masses or ductal dilatation. ADRENALS: No adrenal nodules.KIDNEYS/URETERS: No hydronephrosis or solid mass lesions. A lateral pole simple renal cyst measures 1.3 cm. No follow-up imaging is recommended. PERITONEUM/RETROPERITONEUM: Trace ascites.LYMPH NODES: No lymphadenopathy.VESSELS: There are large esophageal and paraesophageal varices. The main portal vein is patent and measures 1.2 cm in diameter. There is no history of left hepatic artery from the left gastric artery. GI TRACT: No distention or wall thickening. Diverticula of the second portion of the duodenum. BONES AND SOFT TISSUES: Unremarkable. 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 LR-TR nonviable 2.The previously seen arterially hyperenhancing observation in segment II which was LI-RADS 5 is no longer visualized. 3.Two additional Li-rads 3 observations in the liver are essentially unchanged. 4.Cirrhosis with sequelaeof portal hypertension including splenomegaly and large esophageal varices. Signed: Tawanda Alvarez MDReport Verified Date/Time: 12/08/2021 18:24:59 CT, CHEST, WITHOUT [id number] 12:41:00REFERRING MD: ANIL SALVADOR Mets work up [facility] : 1955 Sex: MFINAL REPORT CT Chest without contrast History: Hepatocellular carcinoma Comparison: 08/26/2021 Technique: serial axial imaging was performed without intravenous contrast as per departmentalprotocol. Multiplanar images are reconstructed and reviewed when indicated. This CT examination is performed using one or more of the following dose reduction techniques: Automated exposure control, adjustment of the mA and /or kV according to patient size, and/or use of iterative reconstruction technique. Findings:No mediastinal lymphadenopathy. No definite hilar enlargement. Normal size heart. No pericardial effusion. No thoracic aortic aneurysm. Normal caliber of main pulmonary trunk. Patent central airways. No pleural effusion or pneumothorax. 8mm focal groundglass attenuation nodule within theright lower lobe (axial image 28) is unchanged. The lungs are otherwise clear. Significant gynecomastia. Within the upper abdomen, cirrhotic liver and large esophageal varices are noted. No aggressive osseous lesion. Impression: 1. No definite metastatic disease in the chest.2. Continued stability of 8 mm groundglass right lower lobe nodule. Signed: Ankit Gaines MDRepjohn [facility] Verified Date/Time: 12/08/2021 12:41:29 ALPHA FETOPROTEIN (AFP), TUMOR MARKER 2021-12-06 17:08:44 Test Item Value Reference Range Interpretation Comments ALPHA-FETOPROTEIN (BEAKER) (test 2.3 ng/mL <10.0 code = 1094) Plant Quality Manager ID - DBBASIC METABOLIC [id number] 16:53:56 Test Item Value Reference Range Interpretation Comments SODIUM (BEAKER) 133 meq/L 136-145 L (test code = 381) POTASSIUM (BEAKER) 4.1 meq/L 3.5-5.1 (test code = 379) CHLORIDE (BEAKER) 105 meq/L 98-107 (test code = 382) CO2 (BEAKER) (test 22 meq/L 22-29 code = 355) BLOOD UREA NITROGEN 6 mg/dL 7-21 L (BEAKER) (test code = 354) CREATININE (BEAKER) 0.73 mg/dL 0.57-1.25 (test code = 358) GLUCOSE RANDOM 247 mg/dL 70-105 H (BEAKER) (test code = 652) CALCIUM (BEAKER) 8.3 mg/dL 8.4-10.2 L (test code = 697) EGFR (BEAKER) (test 108 mL/min/1.73 ESTIM ATED GFR IS code = 1092) sq m NOT ACCURATE CREATININE CLEARANCE IN PREDICTING GLOMERULAR FILTRATION RATE . ESTIMATED GFR I S NOT APPLICABLE FOR DIALYSIS PATIEN TS. Plant Quality Manager ID - BSSpecimen slightly ictericHEPATIC FUNCTION [id number] 16:53:56 Test Item Value Reference Range Interpretation Comments TOTAL PROTEIN (BEAKER) (test code = 6.6 gm/dL 6.0-8.3 770) ALBUMIN (BEAKER) (test code = 1145) 3.0 g/dL 3.5-5.0 L BILIRUBIN TOTAL (BEAKER) (test code 2.3 mg/dL 0.2-1.2 H = 377) BILIRUBIN DIRECT (BEAKER) (test 1.1 mg/dL 0.1-0.5 H code = 706) ALKALINE PHOSPHATASE (BEAKER) (test 152 U/L 40-150 H code = 346) AST (SGOT) (BEAKER) (test code = 31 U/L 5-34 353) ALT (SGPT) (BEAKER) (test code = 22 U/L 6-55 347) Plant Quality Manager ID - BSSpecimen slightly ictericPROTHROMBIN TIME/[id number] 16:43:33 Test Item Value Reference Range Interpretation Comments PROTIME (BEAKER) 17.0 seconds 11.9-14.2 H (test code = 759) INR (BEAKER) (test 1.40 See_Comment [Automat ed message] code = 370) The system [employer] generated this result transmitted ref erence range: <=5.90. The reference range was not used to int erpret this result as normal/abnormal . RECOMMENDED COUMADIN/WARFARIN INR THERAPY RANGESSTANDARD DOSE: 2.0 - 3.0 Includes: PROPHYLAXIS for venous thrombosis, systemic embolization; TREATMENT for venous thrombosis and/or pulmonary embolus.HIGH RISK: Target INR is 2.5-3.5 for patients with mechanical heart valves.CBC W/PLT COUNT & AUTO [id number] 16:42:35 Test Item Value Reference Range Interpretation Comments WHITE BLOOD CELL COUNT 5.6 K/ L 3.5-10.5 (BEAKER) (test code = 775) RED BLOOD CELL COUNT 4.16 M/ L 4.63-6.08 L (BEAKER) (test code = 761) HEMOGLOBIN (BEAKER) 8.1 GM/DL 13.7-17.5 L (test code = 410) HEMATOCRIT (BEAKER) 28.2 % 40.1-51.0 L (test code = 411) MEAN CORPUSCULAR VOLUME 67.8 fL 79.0-92.2 L (BEAKER) (test code = 753) MEAN CORPUSCULAR 19.5 pg 25.7-32.2 L HEMOGLOBIN (BEAKER) (test code = 751) MEAN CORPUSCULAR 28.7 GM/DL 32.3-36.5 L HEMOGLOBIN CONC (BEAKER) (test code = 752) RED CELL DISTRIBUTION 21.0 % 11.6-14.4 H WIDTH (BEAKER) (test code = 412) PLATELET COUNT (BEAKER) 75 K/CU MM 150-450 L (test code = 756) MEAN PLATELET VOLUME Unable to report due (BEAKER) (test code = to abn ormal Platelet 754) population distribution. NUCLEATED RED BLOOD 0 /100 WBC 0-0 CELLS (BEAKER) (test code = 413) NEUTROPHILS RELATIVE 61 % PERCENT (BEAKER) (test code = 429) LYMPHOCYTES RELATIVE 25 % PERCENT (BEAKER) (test code = 430) MONOCYTES RELATIVE 12 % PERCENT (BEAKER) (test code = 431) EOSINOPHILS RELATIVE 2 % PERCENT (BEAKER) (test code = 432) BASOPHILS RELATIVE 1 % PERCENT (BEAKER) (test code = 437) NEUTROPHILS ABSOLUTE 3.38 K/ L 1.78-5.38 COUNT (BEAKER) (test code = 670) LYMPHOCYTES ABSOLUTE 1.37 K/ L 1.32-3.57 COUNT (BEAKER) (test code = 414) MONOCYTES ABSOLUTE 0.67 K/ L 0.30-0.82 COUNT (BEAKER) (test code = 415) EOSINOPHILS ABSOLUTE 0.09 K/ L 0.04-0.54 COUNT (BEAKER) (test code = 416) BASOPHILS ABSOLUTE 0.04 K/ L 0.01-0.08 COUNT (BEAKER) (test code = 417) IMMATURE 1 % 0-1 GRANULOCYTES-RELATIVE PERCENT (BEAKER) (test code = 2801) MR, MRI, METASTATIC SURVEY/BONE MARROW [id number] 13:54:00REFERRING MD: ANIL SALVADOR Mets work up Reason for Exam:->hcc, cirrhosis [facility] : 1955 Sex: MFINAL REPORT MRI metastatic skeletal survey History:HCC, cirrhosis Comparison: None Technique: Multiplanar multisequence MR images of the skeleton were obtained from the level of the skullto the level of the distal femurs. T1 weighted and turbo STIR sequences were utilized. Findings: There is red marrow reconversion of the axial and proximal appendicular skeleton. Cervical spine/skull: No MR evidence of osseous metastatic disease. In the midbrain/fourth ventricle region, there is a 1.3cm T1 hyperintense, T2 hypointense nodule. A mucous retention cyst is noted in the left maxillary sin us. Thoracic spine/thorax: No MR evidence of osseous metastatic disease. Lumbar spine/abdomen: No MRevidence of osseous metastatic disease. Cirrhosis and splenomegaly. Small amount of ascites. Pelvis:No MR evidence of osseous metastatic disease. Bilateral femurs: No MR evidence of osseous metastatic disease. Bilateral legs: No MR evidence of osseous metastases. Impression: 1. No MR evidence of osseous metastatic disease. 2. There is a 1.3 cm T1 hyperintense and T2 hypointense midbrain/cisternal nodule, which may represent a lipid-containing or hemorrhagic lesion. Suggest correlation with brain CT or MRI for further evaluation. Signed: Milton Royal Verified Date/Time: 12/06/2021 13:54:32 Reading Location: [facility] [id number] Ortho Consult Reading Room HEREDITARY [id number] 10:46:31 Test Item Value Reference Interpretation Comments Range DNA Mutation See Below RESULT: NEGATIV E Analysis Interpretation: DNA testing (test code = indicates that this individual [id number]) isnegative for the C282Y and H63D pathogenic variants in the HFE gene.Th is negative result signific antly reduces the likelihood ofhereditary hemochromatosis (HH) in this individual. How ever, it doesnot rule ou t the presence of other pathog enic variants within the HFEg adelfo or a diagnosis of HH . The risk of this individual to carry anHFE pathogenic vari ant other than those tested in this assay dependsgreatly on family and clinical histor y as well as ethnicity. This assay does not test for other primary or secondary iron overloaddisorde rs. Laboratory results and sub mitted clinical information rev iewed byLam Phillips MD, MHA, FACMG, CGMBS. DETAILED ASSAY INFORMATION: He reditary hemochromatosis (HH) is anautosomal rec essive disorder of iron metabol ism that can result iniron o verload and potential organ failure. It is one of the most common genetic disorders in in dividuals of -Caucas ianancestry, with an estimat ed carrier frequency of 10 %. HH is caused bypathogenic va riants in the HFE gene. Most individuals with HH(60-90%) are homozygous for the C282Y p athogenic variant. A smal lerpercentage of affected ind ividuals are either compound heterozygousfor the C282Y and H63D pathogenic variants (3%-8%), or brittany ozygous forthe H63D pathogenic variant (approximately 1%). METHODOLOGY: Th is assay detects two pat hogenic variants in the HFEgene, C282Y (NM 618201.2: c .845G>A, p.Hfs970Ifr) an d H63D (JD782113.2: c. 187C>G, p.Ksh01Oto), th at are commonly associated with HH. These variants are de tected by multiplex-polym erase chainreaction ( PCR) amplification, followed by restriction enz ymedigestion and capillary e lectrophoresis. LIMITATIONS: Th is assay does not detect othe r pathogenic variants inthe HFE gene that may be associat ed with HH. Although rare, falsepositive or false negati ve results may occur. All resu lts should beinterpreted i n the context of clinical fin dings, relevant history,and oth er laboratory data. Health ca re providers, please contact your local [employer] 'genetic counselor or [facility] [phone] ( ) forassistance with the interp retation of these results. This test was developed and i ts analytical performancechar acteristics have been deter mined by [facility]. It has not been cleare d or approved by[facility]. This ass ay has been validated pursu ant to the CLIA regulationsand is used for clinical purpos es. For more information, pl ease refer tohttp://educat ion.[employer].com/faq/h emochromatosis. (This linkis be ing provided for information al/educational purposes only.) Reviewed and signed by Liane Phillips MD, MHA , FACMG, CGMBS, Signed on 09/09 at 10:42 MADALYN (test Performing Lab code = MADALYN) EZ [facility] [address] [place] [address] Aung Salazar MD, PhD, SANDRA [facility]MR, [facility]BDOMEN, [id number] 14:51:00REFERRING : ANIL LEROYT Include Abdominal Vessels [facility] : 1955 Sex: MFINAL REPORT MR, ABDOMEN, WITH \\T\\ WITHOUT CONTRAST HISTORY: Liver disease, chronic, history of HCC, monitoring. Status post chemoembolization of a segment 3 lesion on 03/12/2021 COMPARISON: Abdominal MRI 05/07/2021 TECHNIQUE: MRI of the abdomen was performed with and without gadolinium. Multiplanar, multisequence images were obtained before and following intravenous injection of intravenous gadolinium contrast. FINDINGS: Hepatobiliary Findings:Contour and signal intensity: Diffusely nodular and heterogeneous.Observations:- Segment 8 treatment cavity (arterial phase image 49) continues to decrease in size, no suspicious nodular enhancement, LR-TR nonviable.- Segment 3 treatment cavity ( arterial phase image 48) without any suspicious nodular enhancement, LR TR nonviable. -A newly conspicuous 1.4 cm segment 2 lesion with arterial phase hyperenhancement, washout and pseudocapsule (arterial phase image 44 and delayed postcontrast image 44), LI-RADS 5- Multiple sub and pericentimeter foci of arterial phase hyperenhancement, none with washout or pseudocapsule, for example the unchanged 1cm segment 7 arterially hyperenhancing observation which is peripheral may be perfusional, LI-RADS 3-LI-RADS 1 1.0 cm cyst in hepatic segment 5/6. Portal vein: Patent, 1.2 cm in diameter.Arterial anatomy: Conventional.Gallbladder and bile ducts: Unremarkable.Spleen: Markedly enlarged.Varices: Large paraesophageal varices. Perigastric varices. Small amount of thrombus within one of the perigastric varices which is changing configuration but grossly similar in size to prior exam.Peritoneum: Peritoneal fluid containing periumbilical hernia and otherwise no significant free peritoneal fluid. Additional Findings:Lung bases: Unremarkable.Pancreas: Unremarkable.Adrenals: Unremarkable.Kidneys and ureters: No hydronephrosis or solid mass. A pericentimeter right upper pole simple renal cyst.Bowel: A periam pullary duodenal diverticulum..Lymph nodes: Unremarkable.Vessels: As above.Abdominal wall: Fluid containing umbilical hernia, slightly increased in size to 7.2 cm from 6.6 cm.Bones: No acute osseous abnormality. IMPRESSION: 1.A new segment 2 LI-RADS 5 lesion which measures 1.4 cm. 2.LR TR nonviable treated lesions as described above. 3.Cirrhosis and portal hypertension with large paraesophageal varices. Patent main portal vein. 4.Fluid containing umbilical hernia, slightly increased in size Signed: Stefano Mckeoneport Verified Date/Time: 09/01/2021 14:51:17 CT, CHEST, WITHOUT [id number] 16:16:00REFERRING MD: ANIL SALVADOR Mets work up [facility] : 1955 Sex: MFINAL REPORT CT Chest without contrast History: Hepatocellular carcinoma Comparison: 04/29/2021 Technique: serial axial imaging was performed without intravenous contrast as per departmentalprotocol. Multiplanar images are reconstructed and reviewed when indicated. This CT examination is performed using one or more of the following dose reduction techniques: Automated exposure control, adjustment of the mA and /or kV according to patient size, and/or use of iterative reconstruction technique. Findings:No mediastinal lymphadenopathy. No definite hilar enlargement. Normal size heart. No pericardial effusion. No thoracic aortic aneurysm. Normal caliber of main pulmonary trunk. Patent central airways. No pleural effusion or pneumothorax. Stable 8 mm groundglass attenuation nodule within the right lower lobe. This is best seen on axial image 37. The lungs are otherwise clear. Gynecomastiais noted. Small hiatal hernia is noted. Within the partially imaged upper abdomen, cirrhotic liver and mild splenomegaly are noted. No aggressive osseous lesion. Impression: 1. No definite metastatic disease in the chest.2. Stable nonspecific 8 mm right lower lobe groundglass nodule. Signed: Ankit Gaines MDReport Verified Date/Time: 08/31/2021 16:16:00 Reading Location: [facility] Women ALPHA FETOPROTEIN (AFP), TUMOR MARKER 2021-08-26 11:47:11 Test Item Value Reference Range Interpretation Comments ALPHA-FETOPROTEIN (BEAKER) (test code < ng/mL <10.0 = 1094) Plant Quality Manager ID - BSBASIC METABOLIC [id number] 11:20:03 Test Item Value Reference Range Interpretation Comments SODIUM (BEAKER) 138 meq/L 136-145 (test code = 381) POTASSIUM (BEAKER) 4.2 meq/L 3.5-5.1 (test code = 379) CHLORIDE (BEAKER) 106 meq/L 98-107 (test code = 382) CO2 (BEAKER) (test 25 meq/L 22-29 code = 355) BLOOD UREA NITROGEN 5 mg/dL 7-21 L (BEAKER) (test code = 354) CREATININE (BEAKER) 0.83 mg/dL 0.57-1.25 (test code = 358) GLUCOSE RANDOM 203 mg/dL 70-105 H (BEAKER) (test code = 652) CALCIUM (BEAKER) 8.8 mg/dL 8.4-10.2 (test code = 697) EGFR (BEAKER) (test 93 mL/min/1.73 ESTIMA LISA GFR IS code = 1092) sq m NOT ACCURATE CREATININE CLEARANCE IN PREDICTING GLOMERULAR FILTRATION RATE . ESTIMATED GFR I S NOT APPLICABLE FOR DIALYSIS PATIEN TS. Plant Quality Manager ID - PIAYA LSpecimen slightly ictericHEPATIC FUNCTION [id number] 11:20:03 Test Item Value Reference Range Interpretation Comments TOTAL PROTEIN (BEAKER) (test code = 6.6 gm/dL 6.0-8.3 770) ALBUMIN (BEAKER) (test code = 1145) 3.2 g/dL 3.5-5.0 L BILIRUBIN TOTAL (BEAKER) (test code 2.3 mg/dL 0.2-1.2 H = 377) BILIRUBIN DIRECT (BEAKER) (test 0.9 mg/dL 0.1-0.5 H code = 706) ALKALINE PHOSPHATASE (BEAKER) (test 165 U/L 40-150 H code = 346) AST (SGOT) (BEAKER) (test code = 34 U/L 5-34 353) ALT (SGPT) (BEAKER) (test code = 26 U/L 6-55 347) Plant Quality Manager ID - PIAYA LSpecimen slightly ictericPROTHROMBIN [id number] 10:58:57 Test Item Value Reference Range Interpretation Comments PROTIME (BEAKER) 17.2 seconds 11.9-14.2 H (test code = 759) INR (BEAKER) (test 1.42 See_Comment [Automat ed message] code = 370) The system [employer] generated this result transmitted ref erence range: <=5.90. The reference range was not used to int erpret this result as normal/abnormal . RECOMMENDED COUMADIN/WARFARIN INR THERAPY RANGESSTANDARD DOSE: 2.0 - 3.0 Includes: PROPHYLAXIS for venous thrombosis, systemic embolization; TREATMENT for venous thrombosis and/or pulmonary embolus.HIGH RISK: Target INR is 2.5-3.5 for patients with mechanical heart valves.CBC W/PLT COUNT & AUTO [id number] 10:56:22 Test Item Value Reference Range Interpretation Comments WHITE BLOOD CELL COUNT 5.2 K/ L 3.5-10.5 (BEAKER) (test code = 775) RED BLOOD CELL COUNT 4.25 M/ L 4.63-6.08 L (BEAKER) (test code = 761) HEMOGLOBIN (BEAKER) 8.7 GM/DL 13.7-17.5 L (test code = 410) HEMATOCRIT (BEAKER) 29.9 % 40.1-51.0 L (test code = 411) MEAN CORPUSCULAR VOLUME 70.4 fL 79.0-92.2 L (BEAKER) (test code = 753) MEAN CORPUSCULAR 20.5 pg 25.7-32.2 L HEMOGLOBIN (BEAKER) (test code = 751) MEAN CORPUSCULAR 29.1 GM/DL 32.3-36.5 L HEMOGLOBIN CONC (BEAKER) (test code = 752) RED CELL DISTRIBUTION 18.1 % 11.6-14.4 H WIDTH (BEAKER) (test code [...] (BEAKER) (test code = 429) LYMPHOCYTES RELATIVE 34 % PERCENT (BEAKER) (test code = 430) MONOCYTES RELATIVE 12 % PERCENT (BEAKER) (test code = 431) EOSINOPHILS RELATIVE 4 % PERCENT (BEAKER) (test code = 432) BASOPHILS RELATIVE 1 % PERCENT (BEAKER) (test code = 437) NEUTROPHILS ABSOLUTE 2.47 K/ L 1.78-5.38 COUNT (BEAKER) (test code = 670) LYMPHOCYTES ABSOLUTE 1.76 K/ L 1.32-3.57 COUNT (BEAKER) (test code = 414) MONOCYTES ABSOLUTE 0.64 K/ L 0.30-0.82 COUNT (BEAKER) (test code = 415) EOSINOPHILS ABSOLUTE 0.21 K/ L 0.04-0.54 COUNT (BEAKER) (test code = 416) BASOPHILS ABSOLUTE 0.05 K/ L 0.01-0.08 COUNT (BEAKER) (test code = 417) IMMATURE 0 % 0-1 GRANULOCYTES-RELATIVE PERCENT (BEAKER) (test code = 2801) Comprehensive metabolic [id number] 16:54:00 Test Item Value Reference Range Interpretation Comments Glucose (test code = 157 mg/dL 65-99 H Fastin g reference ) interval For so meone without known diabetes, a glucosevalue >1 25 mg/dL indicates that they may havedi abetes and this should be confirmed with afollow-up test . BUN (test code = 7 mg/dL [id number]) Creatinine (test code 0.63 mg/dL 0.70-1.25 L For pa tients >49 years = [id number]) of age, the ref erence limitfor Creati nine is approximately 1 3% higher for peopleidentifie d as -Christelle n. eGFR If NonAfricn Am 104 See_Comment [Autom ated message] (test code = 0346130) The sy stem which generated this result transmitted ref erence range: > OR = 6 0 mL/min/1.73m2. The reference range was not used to int erpret this result as normal/abnormal . eGFR If Africn Am 121 See_Comment [Automate d message] (test code = 8235309) The sy stem which generated this result transmitted ref erence range: > OR = 6 0 mL/min/1.73m2. The reference range was not used to int erpret this result as normal/abnormal . BUN/Creatinine Ratio 11 See_Comment [Autom ated message] (test code = ) The sy stem which generated this result transmitted ref erence range: 6 - 22 ( calc). The reference r mela was not used to interpret this result as normal/abnor mal. Sodium (test code = 137 mmol/L 135-746 9144695) Potassium, Serum 3.8 mmol/L 3.5-5.3 (test code = 20101014) Chloride (test code = 107 mmol/L 98-942 7733550) Carbon Dioxide, Total 22 mmol/L 20-32 (test code = ) Calcium, Serum (test 8.1 mg/dL 8.6-10.3 L code = 20100926) Protein, Total, Serum 6.0 g/dL 6.1-8.1 L (test code = 20101003) Albumin (test code = 3.0 g/dL 3.6-5.1 L ) GLOBULIN (QUEST) 3.0 See_Comment [Automated message] (test code = 9871519) The sy stem which generated this result transmitted ref erence range: 1.9 - 3. 7 g/dL (calc). The ref erence range was not u sed to interpret this result as normal/abnor mal. Albumin Globulin 1.0 See_Comment [Automated message] Ratio (test code = The syste m which 1759-0) generated this result transmitted ref erence range: 1.0 - 2. 5 (calc). The ref erence range was not u sed to interpret this result as normal/abnor mal. Bilirubin, Total 1.4 mg/dL 0.2-1.2 H (test code = 4738945) Alkaline Phosphatase, 103 U/L 35-144 S (test code = 6768-6) AST (SGOT) (test code 24 U/L 10-35 = 20101009) ALT (SGPT) (test code 15 U/L 9-46 = ) Lab Interpretation Abnormal (test code = 30416-3) [facility] [id number] 14:52:00REFERRING MD: ANIL SALVADOR Include Abdominal Vessels [facility] : 1955 Sex: MFINAL REPORT MR, ABDOMEN, WITH \\T\\ WITHOUT CONTRAST [...] Segment VIII treatment cavity (image 28, series 12)has decreased in size and now measures 0.9 [...] cm segment seven arterially hyperenhancing observation without washoutor capsule (LR-3). - Multiple scattered subcentimeter arterially hyperenhancing observations withoutwashout or capsule, some of which are new [...] wall thickening. Periampullary duodenal diverticulumLymph nodes: No lymphadenopathy.Peritoneum: No free fluid or air.Vessels: Recannulized umbilical vein. Similar nonocclusive peripheral thrombus in the splenic vein/perigastric varix.Abdominal wall/Soft Tissues: Bilateral gynecomastia. Slightly smaller partially visualized fluid- filled umbilical hernia.Bones: No acute findings or focal suspicious osseous lesions. IMPRESSION: 1.New segment III treatment cavity with minimal peripheral nodular enhancement and no washout (LR-TR equivocal).2.Smaller previously visualized segment VIII treatment cavity without residual or recurrent disease (LR-TR nonviable).3.Multiple scattered subcentimeter LR-3 observations, some of which are old and someare new as above. Attention on follow-up exams.4.Cirrhosis and portal hypertension with stable largeparaesophageal. Patent main portal vein. Signed: Stefano Mckeon Verified Date/Time: 05/03/2021 14:52:21 Reading Location: [facility] B1 C013T Transitional Reading Room CT, CHEST, WITHOUT CONTRAST 2021-04-29 16:45:00REFERRING MD: ANIL SALVADOR Mets work up [facility] : 1955 Sex: MFINAL REPORT CT of the Chest dated 04/29/2021 COMPARISON: January 21, 2021 CLINICAL INFORMATION: Unlisted Reason for Exam Comment: Axial images of the chest were obtained from thoracic inlet to the upper abdomen without intravenous contrast. This exam was performed according to our departmental dose- optimization program, which includes automated exposure control, adjustment of the mA and/orkV according to patient size and/or use of interactive reconstruction technique. Heart is normal in size. Vascular calcification is seen in the thoracic aorta and coronary arteries. Great vessels are un remarkable. No adenopathy in the mediastinum or perihilar region. Trachea and mainstem bronchi are patent. A stable 8 mm groundglass nodule is seen in the right lower lobe. The rest of the lungs are clear. No mass lesion or airspace disease is noted. No interstitial disease or bronchiectasis is present. No pleural effusion or pleural based mass is seen. Visualized upper abdomen demonstrates cirrhoticliver. 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 Impression: Stable right lower lobe groundglass nodule. Signed: Brenda De Dios MDReport Verified Date/Time: 04/29/2021 16:45:28 Reading Location: [facility] C013Y CT Body Reading Room BONE AND/OR JOINT IMAGING, WHOLE [id number] 14:33:00REFERRING MD: ANIL SALVADOR METS WORK UPCH[facility] : 1955 Sex: MFINAL REPORT PROCEDURE: BONE SCAN, WHOLE BODY CPT CODE: 67761 INDICATION: HCC PROTOCOL: 21.8 mCi of Tc-99m [...] is no significant change. Signed: Tami Owen MDReport Verified Date/Time: 04/29/2021 14:33:51 Reading Location:[address] Reading Room Basic Metabolic [id number] 12:07:01 Test Item Value Reference Range Interpretation Comments Sodium (test code = 134 meq/L 136-145 L 2951-2) Potassium (test code 4.5 meq/L 3.5-5.1 = 2823-3) Chloride (test code = 100 meq/L 98-107 2075-0) CO2 (test code = 22 meq/L 22-29 2027-9) BUN (test code = 11 mg/dL 7-21 3094-0) Creatinine (test code 0.82 mg/dL 0.57-1.25 = 2160-0) Glucose (test code = 124 mg/dL 70-105 H 2345-7) Calcium (test code = 8.9 mg/dL 8.4-10.2 45168-5) EGFR (test code = 95 mL/min/1.73 [place] [address]-7) NOT ACCURATE CREATININE CLEARANCE IN PREDICTING GLOMERULAR FILTRATION RATE . ESTIMATED GFR I S NOT APPLICABLE FOR DIALYSIS PATIENTS. MADALYN (test code = MADALYN) Plant Quality Manager ID - ELOY MSpecimen slightly icteric Lab Interpretation Abnormal (test code = 54148-2) [facility] HospitalHepatic function [id number] 12:07:01 Test Item Value Reference Range Interpretation Comments Protein, Total (test 7.3 See_Comment [Autom ated code = 2885-2) message] The system which generated this result transmitted reference range : 6.0 - 8.3 gm/dL . The reference range was not used to interpr et this result as normal/abnormal . Albumin (test code = 3.3 g/dL 3.5-5.0 L 22090-0) Total Bilirubin (test 1.8 mg/dL 0.2-1.2 H code = 1975-2) Bilirubin, Direct 0.8 mg/dL 0.1-0.5 H (test code = 1968-7) Alkaline Phosphatase 148 U/L 40-150 (test code = 6768-6) AST (test code = 31 U/L 5-34 1920-8) ALT (test code = 23 U/L 6-55 1742-6) MADALYN (test code = MADALYN) Plant Quality Manager ID - ELOY MSpecimen slightly icteric Lab Interpretation Abnormal (test code = 31655-5) [facility]BASIC [facility]OLIC [id number] 12:07:01 Test Item Value Reference Range Interpretation [...] S NOT APPLICABLE FOR DIALYSIS PATIEN TS. Plant Quality Manager LEOPOLDO LYONS MSpecimen slightly ictericHEPATIC FUNCTION [id number] 12:07:01 Test Item Value Reference Range Interpretation [...] (test code = 23 U/L 6-55 347) Plant Quality Manager LEOPOLDO Adamesecimen slightly ictericAlpha fetoprotein (AFP), tumor [id number] 11:59:44 Test Item Value Reference Range Interpretation Comments Alpha-Fetoprotein (test 2.5 ng/mL <10.0 code = 1834-1) MADALYN (test code = MADALYN) Plant Quality Manager LEOPOLDO Butler Lab Interpretation (test Normal code = 98393-7) [facility] HospitalALPHA FETOPROTEIN (AFP), TUMOR [id number] 11:59:44 Test Item Value Reference Range Interpretation Comments ALPHA-FETOPROTEIN (BEAKER) (test 2.5 ng/mL <10.0 code = 1094) Plant Quality Manager LEOPOLDO LYONS MProthrombin time/[id number] 11:32:54 Test Item Value Reference Interpretation Comments [...] valves. Lab Interpretation Abnormal (test code = 07447-7) [facility] HospitalPROTHROMBIN TIME/[id number] 11:32:54 Test Item Value Reference Range Interpretation Comments PROTIME (BEAKER) 15.7 seconds 11.9-14.2 H (test code = 759) INR (BEAKER) (test 1.27 See_Comment [Automat ed message] code = 370) The system [employer] generated this result transmitted ref erence range: <=5.90. The reference range was not used to int erpret this result as normal/abnormal . RECOMMENDED COUMADIN/WARFARIN INR THERAPY RANGESSTANDARD DOSE: 2.0 - 3.0 Includes: PROPHYLAXIS for venous thrombosis, systemic embolization; TREATMENT for venous thrombosis and/or pulmonary embolus.HIGH RISK: Target INR is 2.5-3.5 for patients with mechanical heart valves.CBC with platelet count + automated [id number] 11:25:26 Test Item Value Reference Range Interpretation Comments WBC (test code = 6690-2) 6.3 See_Comment [A utomated message] The system [employer] generated this result transmitted ref erence range: 3.5 - 10 .5 K/L. The refe rence range was not u sed to interpret this result as normal/abnor mal. RBC (test code = 789-8) 4.40 See_Comment L [Au tomated message] The system [employer] generated this result transmitted ref erence range: 4.63 - 6 .08 M/L. The refe rence range was not u sed to interpret this result as normal/abnor mal. MCHC (test code = 786-4) 29.8 See_Comment L [A utomated message] The system [employer] generated this result transmitted ref erence range: [...] L [Aut omated message] 777-3) The system [employer] generated this result transmitted ref erence range: 150 - 45 0 K/CU MM. The referen ce range was not u sed to interpret this result as normal/abnor mal. MPV (test code = [place] [address]-8) to abnormal Pollo telet population distribution. nRBC (test code = 413) 0 See_Comment [Aut omated message] The system [employer] generated this result transmitted ref erence range: [...] See_Comment [Aut omated message] 670) The system [employer] generated this result transmitted ref erence range: 1.78 - 5 .38 K/L. The refe rence range was not u sed to interpret this result as normal/abnor mal. # Lymphs (test code = 1.92 See_Comment [Auto mated message] 414) The system [employer] generated this result transmitted ref erence range: 1.32 - 3 .57 K/L. The refe rence range was not u sed to interpret this result as normal/abnor mal. # Monos (test code = 0.60 See_Comment [Autom ated message] 415) The system [employer] generated this result transmitted ref erence range: 0.30 - 0 .82 K/L. The refe rence range was not u sed to interpret this result as normal/abnor mal. # Eos (test code = 416) 0.11 See_Comment [Au tomated message] The system [employer] generated this result transmitted ref erence range: 0.04 - 0 .54 K/L. The refe rence range was not u sed to interpret this result as normal/abnor mal. # Baso (test code = 417) 0.05 See_Comment [A utomated message] The system [employer] generated this result transmitted ref erence range: 0.01 - 0 .08 K/L. The refe rence range was not u sed to interpret this result as normal/abnor mal. Immature 0 % 0-1 Granulocytes-Relative (test code = 2801) Lab Interpretation (test Abnormal code = 88086-0) [facility] W/PLT COUNT & AUTO [id number] 11:25:26 Test Item Value Reference Range Interpretation [...] PERCENT (BEAKER) (test code = 2801) TROPONIN [id number] 19:45:34 Test Item Value Reference Interpretation Comments Range TROPONIN I (test 0.004 ng/mL See_Comment [Automated code = 3690714585) message] The system which generated this result [...] biotin. Lab Interpretation Normal (test code = 60059-1) [facility] WITH [id number] 19:42:16 Test Item Value Reference Range Interpretation [...] (test code = 55.0 fL 38.5-51.6 H 64749-9) RDW-CV (test code = 21.7 % 12.1-15.4 H 788-0) PLT (test code = See_Comment L [Automated 777-3) message] The sy stem which generated this result transmitted reference range : 150 - 328 10*3/ ?L. The reference r mela was not used to interpret this result as normal/abnormal . MPV (test code = Not Measure d 60407-2) IPF % (test code = 3.2 % 1.2-10.7 Platelet count 5812547254) measured by fluorescence method. NRBC/100 WBC (test See_Comment [Automat ed code = 6787403918) message] The system which generated this result transmitted reference range : 0.0 - 10.0 /100 WBCs. The refer ence range was not u sed to interpret th is result as normal/abnormal . NRBC x10^3 (test code <0.01 See_Comment [Auto mated = 0334791738) message] The s ystem which generated this result transmitted reference range : 10*3/?L. The reference range was not used to interpret this result as normal/abnormal . GRAN MAT (NEUT) % 42.9 % (test code = 770-8) IMM GRAN % (test code 0.60 % = 4222088624) LYMPH % (test code = 38.0 % 736-9) MONO % (test code = 14.2 % 5905-5) EOS % (test code = 3.3 % 713-8) BASO % (test code = 1.0 % 706-2) GRAN MAT x10^3(ANC) 2.24 10*3/uL 1.99-6.95 (test code = 7725136164) IMM GRAN x10^3 (test 0.03 10*3/uL 0.00-0.06 code = 6946636192) LYMPH x10^3 (test code 1.98 10*3/uL 1.09-3.23 = 731-0) MONO x10^3 (test code 0.74 10*3/uL 0.36-1.02 = 742-7) EOS x10^3 (test code = 0.17 10*3/uL 0.06-0.53 711-2) BASO x10^3 (test code 0.05 10*3/uL 0.01-0.09 = 704-7) Lab Interpretation Abnormal (test code = 81952-8) [facility] (50523)2021-04-01 19:34:12 Test Item Value Reference Range Interpretation Comments NA (test code = 135 mmol/L 135-145 9591106107) K (test code = 3.8 mmol/L 3.5-5.0 5648423520) CL (test code = 104 mmol/L 98-108 3215670426) CO2 TOTAL (test code = 23 mmol/L 23-31 1128684339) AGAP (test code = 2-16 8604418172) BUN (test code = 9 mg/dL 7-23 1528811423) GLUCOSE (test code = 195 mg/dL 70-110 H 9427215916) CREATININE (test code = 0.65 mg/dL 0.60-1.25 2471883533) TOTAL BILI (test code = 1.3 mg/dL 0.1-1.1 H 5343953053) CALCIUM (test code = 8.2 mg/dL 8.6-10.6 L 2234843451) T PROTEIN (test code = 6.6 g/dL 6.3-8.2 4029042433) ALBUMIN (test code = 2.9 g/dL 3.5-5.0 L 6659118985) ALK PHOS (test code = 143 U/L 34-122 H 1694187602) ALTv (test code = 28 U/L 5-50 1742-6) AST(SGOT) (test code = 47 U/L 13-40 H 1924717737) eGFR (test code = mL/min/1.73m2 7677303323) MADALYN (test code = MADALYN) Association of [...] tests). Lab Interpretation Abnormal (test code = 60371-1) [facility]iscoAMMONIA, [id number] 19:32:52 Test Item Value Reference Range Interpretation Comments AMMONIA (test code = 4770961626) 48 umol/L 9-33 H Lab Interpretation (test code = Abnormal 21403-8) [facility] FriscoPROTHROMBIN TIME / [id number] 19:01:25 Test Item Value Reference Range Interpretation Comments PROTIME PATIENT (test See_Comment H [Auto mated message] code = 5964-2) The system [employer] generated this result transmitted ref erence range: 12.0 - 1 4.7 Seconds. The reference range was not used to int erpret this result as normal/abnormal . INR (test code = 6301-6) Nor mal INR <1.1; Warfarin Therap eutic range 2.0 to 3. 0 or 2.5 to 3.5, dep ending upon the indica tions. Lab Interpretation (test Abnormal code = 60760-7) [facility]iscoANG, EMBOLIZATION, EXTENSIVE - ARTERIAL 2021-03-12 14:48:00REFERRING : ANIL SALVADOR For TACEReason for Exam:- >hcc, hcvFR[facility] : 1955 Sex: MFINAL REPORT Mesenteric angiogram and chemoembolization, 03/12/2021. History: Hepatic lesions. Comparison: MRI 01/21/2021, prior angiogram 11/26/2020. Modality: Fluoroscopy. Sedation: 0.5 mg Versed and 25 mcg Fentanyl IV was used for moderate sedation monitored under my direction. The patient's vital signs were monitored throughout the procedure and recorded to the patient's medical record by the nurse. Total intra-service time of sedation was 60 minutes. Anesthesia: Two percent Lidocaine without epinephrine. Approach: Right common femoral artery. Estimated blood loss: < 5 cc. Specimen: None. panel machine operator: Carolyn. Boat Hoist Operator: Dilip. Fluoroscopy Time: 14.1 min. Dose (Ka,r): 2189 mGy. Technique: Informed written consent was obtained. Discussion of risks, benefits, and alternatives were made with the patient. The patient expressed understanding and agreed to proceed. All elements maximal sterile barrier technique was utilized for this procedure, including utilization of sterile scr ub solution for skin prep, a large sterile sheet to cover the areas of the patient that were not prepped, and hand hygiene, mask, head covering, and sterile gown for performing radiologist and scrub technologist. The skin was anesthetized with lidocaine. The right common femoral artery was accessed using a micropuncture set. A 5 Ugandan sheath was placed. Diagnostic mesenteric angiogram was performed to access vessel patency and exclude arterio-portal shunting. A 5 Ugandan Anaya catheter which was used to select the celiac trunk for a DSA run. A 3 Ugandan microcatheter was advanced coaxially through the Anaya [...] MRI. A DSA run was performed. The microcatheterwas used to subselect the distal left hepatic artery that supplies the left hepatic lesion. 50 mg ofdoxorubicin loaded on LC beads was administered. Followup [...] are patent. The splenic and portal vein arepatent. 2. Proper and right hepatic artery injections: Minimal ill-defined hypervascularity is seen in the superior right hepatic lobe corresponding to the residual nodular enhancement in segment 8 on recent MRI. Post embolization, there is no further enhancement of the lesion. The lateral segment of the left hepatic lobe was noted to be nonenhancing with these injections.3. Left gastrohepatic arteryinjection: This branch arises directly from the aorta adjacent to the celiac trunk. A 1.5 cm hypervascular lesion is seen in the lateral segment of the left lobe supplied by the distal left hepatic artery corresponding to the MRI finding in segment 3. Post embolization, there is no further enhancementof lesion with continued antegrade flow in the supplying vessel.4. Right common femoral artery injection: Patent right femoral artery and normal sheath position. IMPRESSION: 1. Successful, uncomplicated mesenteric angiogram and left and right hepatic chemo- embolization, performed with conscious sedation.2. Successful hemostasis using closure device. Signed: Anthony Jaimejohn j. [facility] Verified Date/Time:03/12/2021 14:48:55 Reading Location: [place] [address] Angio Body Reading Room HEPATIC FUNCTION PANEL 2021-03-12 07:40:34 Test Item Value Reference Range Interpretation [...] (test code = 19 U/L 6-55 347) Plant Quality Manager ID - EMERSONSpecimen slightly ictericBASIC METABOLIC [id number] 07:40:33 Test Item Value Reference Range Interpretation [...] S NOT APPLICABLE FOR DIALYSIS PATIEN TS. Plant Quality Manager ID - EMERSONSpecimen slightly ictericPROTHROMBIN TIME/[id number] 07:22:36 Test Item Value Reference Range Interpretation Comments PROTIME (BEAKER) 16.9 seconds 11.9-14.2 H (test code = 759) INR (BEAKER) (test 1.40 See_Comment [Automat ed message] code = 370) The system [employer] generated this result transmitted ref erence range: <=5.90. The reference range was not used to int erpret this result as normal/abnormal . RECOMMENDED COUMADIN/WARFARIN INR THERAPY RANGESSTANDARD DOSE: 2.0 - 3.0 Includes: PROPHYLAXIS for venous thrombosis, systemic embolization; TREATMENT for venous thrombosis and/or pulmonary embolus.HIGH RISK: Target INR is 2.5-3.5 for patients with mechanical heart valves.CBC W/PLT COUNT & AUTO [id number] 07:09:25 Test Item Value Reference Range Interpretation [...] (BEAKER) (test code = 2801) BASIC METABOLIC [id number] 10:56:30 Test Item Value Reference Range Interpretation [...] S NOT APPLICABLE FOR DIALYSIS PATIEN TS. Plant Quality Manager ID Andrea REDMONDpecimen slightly ictericHEPATIC FUNCTION PANEL [...] (test code = 28 U/L 6-55 347) Plant Quality Manager ID - AMADOR REDMONDpecimen slightly [id number] 10:28:14 Test Item Value Reference Range Interpretation Comments PARTIAL THROMBOPLASTIN TIME 34.9 seconds 22.5-36.0 (BEAKER) (test code = 760) PROTHROMBIN TIME/[id number] 10:27:34 Test Item Value Reference Range Interpretation Comments PROTIME (BEAKER) 17.4 seconds 11.9-14.2 H (test code = 759) INR (BEAKER) (test 1.45 See_Comment [Automat ed message] code = 370) The system [employer] generated this result transmitted ref erence range: <=5.90. The reference range was not used to int erpret this result as normal/abnormal . RECOMMENDED COUMADIN/WARFARIN INR THERAPY RANGESSTANDARD DOSE: 2.0 - 3.0 Includes: PROPHYLAXIS for venous thrombosis, systemic embolization; TREATMENT for venous thrombosis and/or pulmonary embolus.HIGH RISK: Target INR is 2.5-3.5 for patients with mechanical heart valves.CBC W/PLT COUNT & AUTO [id number] 10:14:45 Test Item Value Reference Range Interpretation [...] (BEAKER) (test code = 2801) MR, ABDOMEN, [id number] 12:00:00REFERRING MD: ANIL SALVADOR Include Abdominal VesselsFRANK [facility]. [facility]Name: [facility] : 1955 Sex: MFINAL REPORT TECHNIQUE: MRI of the abdomen WITHOUT and WITH intravenous contrast. INDICATION: Liver disease, chronic, history of HCC, monitoring. COMPARISON: Abdominal MRI dated 09/01/2020. FINDINGS: LOWER THORAX: Unremarkable. Interval resolution of previously visualized moderate right pleural effusion. LIVER: Cirrhotic hepatic morphology. Liver observations as follows:*Treatment cavity ofhepatic segment VIII (series 12, image 43) with [...] V (series 3, image 22) is likely national account representative of a cyst, unchanged.*An 11 mm focus of arterial phase hyperenha ncement in segment 7 (arterial phase image 40) without washout or pseudocapsule (LI-RADS 3), unchanged*A few scattered peripheral wedge-shaped foci of arterial enhancement are perfusionalBILIARY: Gallbladder is unremarkable. No biliary ductal dilatation or filling defect.SPLEEN: Splenomegaly which measures up to 17.2 cm in the mid clavicular line..PANCREAS: No focal masses or ductal dilatation. ADRENALS: No adrenal nodules.KIDNEYS/URETERS: No hydronephrosis or solid mass lesions. A subcentimeter right renal cyst PERITONEUM/RETROPERITONEUM: Small volume ascites.LYMPH NODES: No lymphadenopathy.VESSELS: Large paraesophageal varices. Small recanalized umbilical vein. Patent main portal vein measuring 12 mm in diameter. A small [...] portal hypertension including paraesophageal varices, and splenomegaly.4.Unchanged splenic vein nonocclusive thrombus. Patent main portal vein. Signed: Stefano Mckeon MDRyamilethort Verified Date/Time: 01/25/2021 12:00:12 Reading Location: [address] Reading Room Hepatitis C RNA Quantitative 2021-01-22 16:10:00 Test Item Value Reference Range Interpretation Comments HCV PCR, Quantitative HCV RNA not detected HCV RNA not (test code = 55953-4) detected MADALYN (test code = MADALYN) This test uses a Real-Time Polymerase Chain Reaction (RT-PCR) methodology and was performed using [employer] Ampliprep/KHOA TaqMan HCV test kit version 2.0 ([employer]). Reportable range for this assay is 15 - 100,000,000 IU per mL (1.18 - 8.00 Log IU/mL). Lab Interpretation Normal (test code = 42997-6) [facility], [id number] 16:10:00 Test Item Value Reference Range Interpretation Comments HCV RESULT COMPONENT HCV RNA not detected HCV RNA not detected (MADISON) (test code = 2699) This test uses a Real-Time Polymerase Chain Reaction (RT-PCR) methodology and was performed using [employer] Ampliprep/KHOA TaqMan HCV test kit version 2.0 ([employer]).Reportable range for this assay is 15 - 100,000,000 IU per mL (1.18 - 8.00 Log IU/mL).CT, CHEST, WITHOUT [id number] 15:56:00 REFERRING MD: ANIL SALVADOR Mets work up [facility] : 1955 Sex: MFINAL REPORT TECHNIQUE: CT [...] MEDIASTINUM: The visualized thyroid gland is normal. Nosignificant mediastinal, hilar, or axillary lymphadenopathy. The heart and pericardium are within normal limits. SOFT TISSUES AND BONES: Bilateral gynecomastia. Degenerative changes in the spine. No suspicious osseous lesion. UPPER ABDOMEN: Cirrhosis with sequela portal hypertension including splenomegaly and periesophageal varices.. Evaluation for focal liver lesion is limited due to lack of intravenous contrast.. IMPRESSION:No intrathoracic metastatic disease. Stable 0.8 cm groundglass nodule in the right lower lobe. Attention on follow-up imaging is suggested. Signed: Jeff Calzadaeport Verified Date/Time: 01/22/2021 15:56:37 Reading Location: [facility] Diagnostic Imaging Reading Room - [place] [address] ALPHA FETOPROTEIN (AFP), TUMOR [id number] 11:33:00 Test Item Value Reference Range Interpretation Comments ALPHA-FETOPROTEIN (BEAKER) (test 2.1 ng/mL <10.0 code = 1094) Plant Quality Manager ID - ELOY MBASIC METABOLIC [id number] 11:23:00 Test Item Value Reference Range Interpretation [...] S NOT APPLICABLE FOR DIALYSIS PATIEN TS. Plant Quality Manager ID - ELOY MHEPATIC FUNCTION [id number] 11:23:00 Test Item Value Reference Range Interpretation [...] (test code = 23 U/L 6-55 347) Plant Quality Manager ID - ELOY MCBC W/PLT COUNT & AUTO [id number] 10:58:00 Test Item Value Reference Range Interpretation [...] PERCENT (BEAKER) (test code = 2801) PROTHROMBIN TIME/[id number] 10:46:00 Test Item Value Reference Range Interpretation Comments PROTIME (BEAKER) 16.4 seconds 11.9-14.2 H (test code = 759) INR (BEAKER) (test 1.35 See_Comment [Automat ed message] code = 370) The system [employer] generated this result transmitted ref erence range: <=5.90. The reference range was not used to int erpret this result as normal/abnormal . RECOMMENDED COUMADIN/WARFARIN INR THERAPY RANGESSTANDARD DOSE: 2.0 - 3.0 Includes: PROPHYLAXIS for venous thrombosis, systemic embolization; TREATMENT for venous thrombosis and/or pulmonary embolus.HIGH RISK: Target INR is 2.5-3.5 for patients with mechanical heart valves.ANG, EMBOLIZATION, EXTENSIVE - [id number] 08:41:00REFERRING : ANIL SALVADOR For TACEReason for Exam:->HCC, CIRRHOSIS [facility] : 1955 Sex: MFINAL REPORT Mesenteric angiogram [...] blood loss: < 5 cc. Specimen: None. panel machine operator: Xiang Colindres MD.. Boat Hoist Operator: None. Fluoroscopy Time: 14.2 m in.Reference Air Kerma (Ka, r): 1613 mGy. The skin was anesthetized with lidocaine. The right commonfemoral artery was accessed using a 21-gauge needle and a 0.018 inch microwire. A 4 Ugandan catheter was placed over the wire and a 0.035 inch wire was placed through the catheter into the abdominal aorta. A 5 Ugandan sheath was placed over the wire. A 5 Ugandan SOS-II catheter was used to select the celiac artery for digital subtraction angiogram which demonstrated patent portal flow. A microcatheter was subsequently used to subselect the right hepatic artery and more distal segment eight arteries fordiagnostic angiograms. After supply to the segment eight tumor was verified chemoembolization was per formed into a segment eight artery approximately 50 mg of doxorubicin loaded on LC beads was administered. Follow-up digital subtraction angiogram was performed. Left hepatic artery proximal and distalselective angiograms were performed in an attempt to identify the segment three lesion which was unsu ccessful. The catheter was removed. Injection was performed [...] is patent. 2. Right hepatic artery injection identifiesa single branch supplying segment eight and segment seven.3. Selective catheterization and digital subtraction angiogram of the segment eight artery demonstrates hypervascular tumor blush within segment eight corresponding to the known MRI finding. A total of 50 mg or two thirds of the [...] Successful hemostasis using closure device. Signed: Xiang Colindres MDReport Verified Date/Time: 11/27/2020 08:41:43 BASIC METABOLIC [id number] 08:59:00 Test Item Value Reference Range Interpretation [...] S NOT APPLICABLE FOR DIALYSIS PATIEN TS. Plant Quality Manager ID - KRISHNA ZAVALETApecimen slightly ictericHEPATIC FUNCTION [id number] 08:59:00 Test Item Value Reference Range Interpretation [...] (test code = 24 U/L 6-55 347) Plant Quality Manager ID - KRISHNA Isaac slightly ictericPROTHROMBIN TIME/[id number] 08:49:00 Test Item Value Reference Range Interpretation Comments PROTIME (BEAKER) 16.7 seconds 11.9-14.2 H (test code = 759) INR (BEAKER) (test 1.37 See_Comment [Automat ed message] code = 370) The system [employer] generated this result transmitted ref erence range: <=5.90. The reference range was not used to int erpret this result as normal/abnormal . RECOMMENDED COUMADIN/WARFARIN INR THERAPY RANGESSTANDARD DOSE: 2.0 - 3.0 Includes: PROPHYLAXIS for venous thrombosis, systemic embolization; TREATMENT for venous thrombosis and/or pulmonary embolus.HIGH RISK: Target INR is 2.5-3.5 for patients with mechanical heart valves.CBC W/PLT COUNT & AUTO [id number] 08:49:00 Test Item Value Reference Range Interpretation [...] 0-1 PERCENT (BEAKER) (test code = 2801) [id number] 08:49:00 Test Item Value Reference Range Interpretation Comments PARTIAL THROMBOPLASTIN TIME 34.6 seconds 22.5-36.0 (BEAKER) (test code = 760) HEPATITIS C PCR, [id number] 19:54:00 Test Item Value Reference Range Interpretation Comments HCV RESULT COMPONENT HCV RNA not detected HCV RNA not detected (BEAKER) (test code = 2699) This test uses a Real-Time Polymerase Chain Reaction (RT-PCR) methodology and was performed using K[employer] Ampliprep/KHOA TaqMan HCV test kit version 2.0 ([employer]).Reportable range for this assay is 15 - 100,000,000 IU per mL (1.18 - 8.00 Log IU/mL).BASIC METABOLIC [id number] 12:10:00 Test Item Value Reference Range Interpretation [...] S NOT APPLICABLE FOR DIALYSIS PATIEN TS. Plant Quality Manager ID - FSEHEPATIC FUNCTION [id number] 12:10:00 Test Item Value Reference Range Interpretation [...] (test code = 26 U/L 6-55 347) Plant Quality Manager ID - FSECBC W/PLT COUNT & AUTO [id number] 12:01:00 Test Item Value Reference Range Interpretation [...] PERCENT (BEAKER) (test code = 2801) PROTHROMBIN TIME/[id number] 11:53:00 Test Item Value Reference Range Interpretation Comments PROTIME (BEAKER) 16.3 seconds 11.9-14.2 H (test code = 759) INR (BEAKER) (test 1.35 See_Comment [Automat ed message] code = 370) The system [employer] generated this result transmitted ref erence range: [...] WHOLE BODY 2020-10-08 17:40:00REFERRING MD: [facility]IL SAL[facility]ADOR [facility] : 1955 Sex: MFINAL REPORT PROCEDURE: BONE SCAN, WHOLE BODY CPT CODE: 41395 INDICATION: Hepatocellularcarcinoma PROTOCOL: 21.0 mCi of Tc-99m MDP was injected intravenously. [...] MDReport Verified Date/Time: 10/08/2020 17:40:47 Reading Location: [address] Reading Room CT, CHEST, WITHOUT [id number] 12:54:00REFERRING MD: [facility]IL [facility]OR [facility] : 1955 Sex: MFINAL REPORT CT of [...] effusion and bibasilar subsegmental atelectasis.3. Hiatal hernia4. Cirrhosis.Signed: Brenda De Dioseport Verified Date/Time: 10/08/2020 12:54:21 Reading Location: [facility] C013Y CT Body Reading Room ALPHA FETOPROTEIN (AFP), TUMOR [id number] 12:52:00 Test Item Value Reference Range Interpretation Comments ALPHA-FETOPROTEIN (BEAKER) (test 2.5 ng/mL <10.0 code = 1094) Plant Quality Manager ID - DEBORAH CBASIC METABOLIC [id number] 11:26:00 Test Item Value Reference Range Interpretation [...] S NOT APPLICABLE FOR DIALYSIS PATIEN TS. Plant Quality Manager ID - PIAYA LHEPATIC FUNCTION [id number] 11:26:00 Test Item Value Reference Range Interpretation [...] (test code = 29 U/L 6-55 347) Plant Quality Manager ID - PIAYA LCBC W/PLT COUNT & AUTO [id number] 11:14:00 Test Item Value Reference Range Interpretation [...] PERCENT (BEAKER) (test code = 2801) PROTHROMBIN TIME/[id number] 11:12:00 Test Item Value Reference Range Interpretation Comments PROTIME (BEAKER) 16.7 seconds 11.9-14.2 H (test code = 759) INR (BEAKER) (test 1.39 See_Comment [Automat ed message] code = 370) The system [employer] generated this result transmitted ref erence range: <=5.90. The reference range was not used to int erpret this result as normal/abnormal . Effective 10/24/2018: PT Reference Range ChangeNew: 11.9-14.2 Previous: 11.7- 14.7RECOMMENDED COUMADIN/WARFARIN INR THERAPY RANGESSTANDARD DOSE: 2.0-3.0 Includes: PROPHYLAXIS for venous thrombosis, systemic embolization; TREATMENT for venous thrombosis and/or pulmonary embolus.HIGH RISK: Target INR is 2.5-3.5 for patients wiht mechanical heart valves.MR, ABDOMEN, [id number] 16:24:00 REFERRING MD: ANIL SALVADOR Include Abdominal VesselsUnlisted Reason for Exam - Click Yes and EnterReason Below->YesUnlisted Reason for Exam->awaiting organ transplant, cirrhosis, screening forcancer [facility] : 1955 Sex: MFINAL REPORT TECHNIQUE: MRI of the abdomen WITHOUT and WITH intravenous contrast. INDICATION: Unlisted Reason for Examawaiting organ transplant, cirrhosis, screening for cancer. COMPARISON:MRI from 03/13/2020. FINDINGS: LOWER THORAX: Moderate sized right pleural effusion. LIVER: Nodular, cirrhotic liver. Observations as follow:*An arterially enhancing observation in segment VIII measures2.3 cm on axial arterial phase image 27, [...] 3.Moderate sized right pleural effusion Signed: Tawanda Alvarezeport Verified Date/Time: 09/02/2020 16:24:23 ALPHA FETOPROTEIN (AFP), TUMOR [id number] 16:57:00 Test Item Value Reference Range Interpretation Comments ALPHA-FETOPROTEIN (BEAKER) (test code < ng/mL <10.0 = 1094) Plant Quality Manager ID - BSBASIC METABOLIC [id number] 14:50:00 Test Item Value Reference Range Interpretation [...] S NOT APPLICABLE FOR DIALYSIS PATIEN TS. Plant Quality Manager ID - EDASISpecimen slightly ictericHEPATIC FUNCTION [id number] 14:50:00 Test Item Value Reference Range Interpretation [...] (test code = 26 U/L 6-55 347) Plant Quality Manager ID - EDASISpecimen slightly ictericCBC W/PLT COUNT & AUTO [id number] 14:45:00 Test Item Value Reference Range Interpretation [...] PERCENT (BEAKER) (test code = 2801) PROTHROMBIN TIME/[id number] 14:40:00 Test Item Value Reference Range Interpretation Comments PROTIME (BEAKER) 17.6 seconds 11.9-14.2 H (test code = 759) INR (BEAKER) (test 1.49 See_Comment [Automat ed message] code = 370) The system [employer] generated this result transmitted ref erence range: <=5.90. The reference range was not used to int erpret this result as normal/abnormal . Effective 10/24/2018: PT Reference Range ChangeNew: 11.9-14.2 Previous: 11.7- 14.7RECOMMENDED COUMADIN/WARFARIN INR THERAPY RANGESSTANDARD DOSE: 2.0-3.0 Includes: PROPHYLAXIS for venous thrombosis, systemic embolization; TREATMENT for venous thrombosis and/or pulmonary embolus.HIGH RISK: Target INR is 2.5-3.5 for patients wiht mechanical heart valves.Chest 1 [id number] 14:03:55 Small right pleural effusion with right basilar pneumonia and/oratelectasis. RL: [phone] Patient name: KALEN MONTENEGRO: 1955 64 years EXAMINATION: XR CHEST 1 VW Ordering Physician: WENDY BULL CLINICAL HISTORY:Shortness of breath COMPARISON:None TECHNIQUE:Single frontal view of the chest was performed. The technique of thisexaminationis adequate. FINDINGS:Normal lung volumes. Airspace opacity seen [...] frontal view of the chest was performed. Thetechnique of thisexamination is adequate.FINDINGS:Normal lung volumes. Airspace opacity seen at the right lung base. Suspectsmall right effusion. No pneumothorax. Heart size is normal without edema.Normal aortic contours. No acute osseous abnormality.IMPRESSIONSmall right pleural effusion with right basilar pneumonia and/oratelectasis.RL: [phone] [facility] HospitalTrop[facility] [id number] 13:32:55 Test Item Value Reference Range Interpretation Comments TROPONIN I (test <0.012 See_Comment [Automated code = 1017884909) message] The system which generated this result [...] ? Lab Interpretation Normal (test code = 50321-4) [id number] 13:29:55 Test Item Value Reference Range Interpretation Comments NT-proBNP (test code 119 pg/mL See_Comment [Autom ated = 5308517008) message] The system which generated this result transmitted reference range : <=125. The reference range was not used to interpret this result as normal/abnormal . MADALYN (test code = MADALYN) Biotin has been reported to cause a negative bias, interpret results relative to patient's use of biotin. Lab Interpretation Normal (test code = 33507-8) [facility]iscoCOVID-19 (ID NOW RAPID TESTING)2020-08-19 13:23:14 Test Item Value Reference Range Interpretation Comments SARS-CoV-2 Rapid ID NOW Not Detected Not Detected (test code = 93726-7) MADALYN (test code = MADALYN) ID NOW COVID-19 Assay is an isothermal nucleic acid amplification test intended for the qualitative detection of nucleic acid from SARS-CoV-2 viral RNA in nasopharyngeal (TRAFFIC CONTROL FLAGGER) specimens. It is used under Emergency Use [...] indicated. Lab Interpretation Normal (test code = 33779-4) [facility] (NA, K, CL, CO2, GLUCOSE, BUN, CREATININE, CA)2020-08-19 13:21:13 Test Item Value Reference Range Interpretation Comments NA (test code = 135 mmol/L 135-145 3586700708) K (test code = 4.1 mmol/L 3.5-5.0 5668923501) CL (test code = 106 mmol/L 98-108 7000427466) CO2 TOTAL (test code = 24 mmol/L 23-31 9920042982) AGAP (test code = 2-16 7844504288) BUN (test code = 7 mg/dL 7-23 8953801129) GLUCOSE (test code = 216 mg/dL 70-110 H 4193842733) CREATININE (test code = 0.59 mg/dL 0.60-1.25 L 9908952873) CALCIUM (test code = 8.2 mg/dL 8.6-10.6 L 9345894323) eGFR Calculation mL/min/1.73m2 (Non-) (test code = 5471228689) eGFR Calculation mL/min/1.73m2 () (test code = 9241923365) MADALYN (test code = MADALYN) Association of [...] tests). Lab Interpretation Abnormal (test code = 11980-9) [facility] Function [facility] (ALB, T.PRO, BILI T, BU/BC, ALT, AST, ALK PHOS)2020-08-19 13:21:12 Test Item Value Reference Range Interpretation Comments TOTAL BILI (test code = 3252544820) 1.9 mg/dL 0.1-1.1 H BILI UNCON (test code = 9664922063) 1.7 mg/dL 0.1-1.1 H BILI CONJ (test code = 2524565644) 0.0 mg/dL 0.0-0.3 T PROTEIN (test code = 6643689417) 6.3 g/dL 6.3-8.2 ALBUMIN (test code = 1956800926) 3.0 g/dL 3.5-5.0 L ALK PHOS (test code = 4440452802) 162 U/L 34-122 H ALTv (test code = 1742-6) 25 U/L 5-50 AST(SGOT) (test code = 2515770596) 41 U/L 13-40 H Lab Interpretation (test code = Abnormal 30633-3) [facility]iscoLipase [id number] 13:21:12 Test Item Value Reference Range Interpretation Comments LIPASE (test code = 1533843673) 145 U/L 0-220 Lab Interpretation (test code = Normal 60672-6) [facility]iscoCB with [id number] 13:17:56 Test Item Value Reference Range Interpretation Comments WBC (test code = See_Comment [Automated 8190-2) message] The sy stem which generated this result transmitted reference range : 4.20 - 10.70 10*3/?L. The reference range was not used to interpret this result as normal/abnormal . RBC (test code = See_Comment L [Automated 929-8) message] The sy stem which generated this [...] RDW-SD (test code = 48.3 fL 38.5-51.6 19402-0) RDW-CV (test code = 21.4 % 12.1-15.4 H 788-0) PLT (test code = See_Comment L [Automated 777-3) message] The sy stem which generated this result transmitted reference range : 150 - 328 10*3/ ?L. The reference r mela was not used to interpret this result as normal/abnormal . MPV (test code = Not Measure d 98173-6) IPF % (test code = 2.3 % 1.2-10.7 Platelet count 6448527417) measured by fluorescence method. NRBC/100 WBC (test See_Comment [Automat ed code = 4950591827) message] The system which generated this result transmitted reference range : 0.0 - 10.0 /100 WBCs. The refer ence range was not u sed to interpret th is result as normal/abnormal . NRBC x10^3 (test code <0.01 See_Comment [Auto mated = 5796747355) message] The s ystem which generated this result transmitted reference range : 10*3/?L. The reference range was not used to interpret this result as normal/abnormal . GRAN MAT (NEUT) % 56.4 % (test code = 770-8) IMM GRAN % (test code 0.20 % = 3281130288) LYMPH % (test code = 27.6 % 736-9) MONO % (test code = 10.7 % 5905-5) EOS % (test code = 3.7 % 713-8) BASO % (test code = 1.4 % 706-2) GRAN MAT x10^3(ANC) 2.47 10*3/uL 1.99-6.95 (test code = 2189223821) IMM GRAN x10^3 (test <0.03 0.00-0.06 code = 4544013689) LYMPH x10^3 (test code 1.21 10*3/uL 1.09-3.23 = 731-0) MONO x10^3 (test code 0.47 10*3/uL 0.36-1.02 = 742-7) EOS x10^3 (test code = 0.16 10*3/uL 0.06-0.53 711-2) BASO x10^3 (test code 0.06 10*3/uL 0.01-0.09 = 704-7) Lab Interpretation Abnormal (test code = 81536-0) [facility]iscoPROTHROMBIN TIME / [id number] 01:49:00 Test Item Value Reference Range Interpretation Comments PROTIME PATIENT (test See_Comment H [Auto mated message] code = 5964-2) The system [employer] generated this result transmitted ref erence range: 12.0 - 1 4.7 Seconds. The reference range was not used to int erpret this result as normal/abnormal . INR (test code = 6301-6) Nor mal INR <1.1; Warfarin Therap eutic range 2.0 to 3. 0 or 2.5 to 3.5, dep ending upon the indica tions. Lab Interpretation (test Abnormal code = 67314-0) [facility]iscoMAGNESIUM2021-01-29 01:27:00 Test Item Value Reference Range Interpretation Comments MAGNESIUM (test code = 1435832382) 1.6 mg/dL 1.7-2.4 L Lab Interpretation (test code = Abnormal 76278-6) [facility]iscoAMMONIA, [id number] 01:26:00 Test Item Value Reference Range Interpretation Comments AMMONIA (test code = 2660167331) 37 umol/L 9-33 H Lab Interpretation (test code = Abnormal 46021-8) [facility] FriscoUrinalysis2021-01-29 00:30:00 Test Item Value Reference Range Interpretation Comments APPEARANCE (test code = Clear Clear 1771357865) COLOR (test code = Addison Yellow A 0048163440) PH (test code = 4.8-8.0 5408227451) SP GRAVITY (test code = 1.003-1.030 0153367047) GLU U QUAL (test code = Normal Normal 3064742230) BLOOD (test code = Negative Negative INTERFERE NCE FROM 5395372479) ASCORBIC ACID M AY CAUSE FALSE NEG ATIVE RESULT KETONES (test code = Negative Negative 7609102955) PROTEIN (test code = Negative Negative 2887-8) UROBILIN (test code = 4.0 mg/dL Normal A 2621269050) BILIRUBIN (test code = Negative Negative 6506573362) NITRITE (test code = Negative Negative 9589417363) LEUK KIKI (test code = Negative Negative 7670579090) RBC/HPF (test code = See_Comment [Autom ated message] 3370979346) The system [employer] generated this result transmitted ref erence range: 0 - 3 HP F. The reference range was not used to int erpret this result as normal/abnormal . WBC/HPF (test code = See_Comment [Autom ated message] 8853067011) The system [employer] generated this result transmitted ref erence range: 0 - 5 HP F. The reference range was not used to int erpret this result as normal/abnormal . BACTERIA (test code = Negative Negative 8500808315) MUCOUS (test code = Slight Negative LPF A 1337505767) SQ EPITH (test code = HPF 0253341401) CA OXALATE (test code = See_Comment [Au tomated message] 7694036719) The system [employer] generated this result transmitted ref erence range: <=1 HPF. The reference range was not used to int erpret this result as normal/abnormal . TRANS EPI (test code = <1 See_Comment [Aut omated message] 6376262219) The system [employer] generated this result transmitted ref erence range: <=1 HPF. The reference range was not used to int erpret this result as normal/abnormal . Lab Interpretation Abnormal (test code = 52676-6) [facility] 1 [id number] 00:22:38Elevation of the right hemidiaphragm of moderate [...] moderate patchyopacities in the right lung base. Nolarge pleural effusion. Nopneumothorax. No acute osseous abnormality. [facility], Radiant Results Inft User - 06/25/2020 6:23 PM CSTCHEST SINGLE VIEWHISTORY: SOB ORDERING PHYSICIAN: CAROLINA SHARP:Frontal view of chestCOMPARISON: None available.FINDINGS:The cardiac silhouette is mildly enlargedThere is elevation of the right hemidiaphragm. There are moderate patchyopacities in the right lung base. No large pleural effusion. Nopneumothorax.No acute osseous abnormality. IMPRESSIONElevation of theright hemidiaphragm of moderate patchy opacities in theright lung base which may be due to atelectasis or pneumonia.RL: 4131 End of report [facility] HospitalTrunico[facility] hospitaldarrelln [id number] 00:18:00 Test Item Value Reference Range Interpretation Comments TROPONIN I (test <0.012 See_Comment [Automated code = 8030089682) message] The system which generated this result [...] ? Lab Interpretation Normal (test code = 01385-2) [facility]AL [id number] 00:15:00 Test Item Value Reference Range Interpretation Comments NT-proBNP (test code 175 pg/mL See_Comment H [Autom ated = 9281714301) message] The system which generated this result transmitted reference range : <=125. The reference range was not used to interpret this result as normal/abnormal . MADALYN (test code = MADALYN) Biotin has been reported to cause a negative bias, interpret results relative to patient's use of biotin. Lab Interpretation Abnormal (test code = 57796-0) [facility]COVID[facility] (ID NOW RAPID TESTING)2020-06-26 00:08:00 Test Item Value Reference Range Interpretation Comments SARS-CoV-2 Rapid ID NOW Not Detected Not Detected (test code = 94012-5) MADALYN (test code = MADALYN) ID NOW COVID-19 Assay is an isothermal nucleic acid amplification test intended for the qualitative detection of nucleic acid from SARS-CoV-2 viral RNA in nasopharyngeal (TRAFFIC CONTROL FLAGGER) specimens. It is used under Emergency Use [...] indicated. Lab Interpretation Normal (test code = 19778-5) [facility] Metabolic Panel (NA, K, CL, CO2, GLUCOSE, BUN, CREATININE, CA)2020-06-26 00:06:00 Test Item Value Reference Range Interpretation Comments NA (test code = 137 mmol/L 135-145 9672055498) K (test code = 3.4 mmol/L 3.5-5 L 1596589787) CL (test code = 104 mmol/L 98-108 1701490764) CO2 TOTAL (test code = 26 mmol/L 23-31 9981497765) AGAP (test code = 2-16 0762857004) BUN (test code = 6 mg/dL 7-23 L 9991356367) GLUCOSE (test code = 118 mg/dL 70-110 H 4519315173) CREATININE (test code = 0.60 mg/dL 0.6-1.25 7684350427) CALCIUM (test code = 7.9 mg/dL 8.6-10.6 L 1096676074) eGFR Calculation mL/min/1.73m2 (Non-) (test code = 5385535880) eGFR Calculation mL/min/1.73m2 () (test code = 7670685188) MADALYN (test code = MADALYN) Association of [...] tests). Lab Interpretation Abnormal (test code = 70739-7) [facility] Function [facility] (ALB, T.PRO, BILI T, BU/BC, ALT, AST, ALK PHOS)2020-06-26 00:06:00 Test Item Value Reference Range Interpretation Comments TOTAL BILI (test code = 3201884125) 2.2 mg/dL 0.1-1.1 H BILI UNCON (test code = 3518562283) 1.8 mg/dL 0.1-1.1 H BILI CONJ (test code = 6810870286) 0.0 mg/dL 0-0.3 T PROTEIN (test code = 8802176448) 6.8 g/dL 6.3-8.2 ALBUMIN (test code = 9889410112) 3.1 g/dL 3.5-5 L ALK PHOS (test code = 0477355791) 162 U/L 34-122 H ALTv (test code = 1742-6) 22 U/L 5-50 AST(SGOT) (test code = 6386584842) 42 U/L 13-40 H Lab Interpretation (test code = Abnormal 16355-4) [facility]iscoLip[facility] [id number] 00:06:00 Test Item Value Reference Range Interpretation Comments LIPASE (test code = 3155858016) 156 U/L 0-220 Lab Interpretation (test code = Normal 65642-5) [facility]iscoCB with [id number] 00:00:00 Test Item Value Reference Range Interpretation [...] RDW-SD (test code = 49.4 fL 38.5-51.6 66904-2) RDW-CV (test code = 21.6 % 12.1-15.4 H 788-0) PLT (test code = See_Comment L [Automated 777-3) message] The sy stem which generated this result transmitted reference range : 150 - 328 10*3/ ?L. The reference r mela was not used to interpret this result as normal/abnormal . MPV (test code = Not Measure d 30198-5) IPF % (test code = 1.9 % 1.2-10.7 Platelet count 2567369811) measured by fluorescence method. NRBC/100 WBC (test See_Comment [Automat ed code = 6274469444) message] The system which generated this result transmitted reference range : 0.0 - 10.0 /100 WBCs. The refer ence range was not u sed to interpret th is result as normal/abnormal . NRBC x10^3 (test code <0.01 See_Comment [Auto mated = [id number]) message] The s ystem which generated this result transmitted reference range : 10*3/?L. The reference range was not used to interpret this result as normal/abnormal . GRAN MAT (NEUT) % 44.8 % (test code = 770-8) IMM GRAN % (test code 0.20 % = 3860580354) LYMPH % (test code = 37.2 % 736-9) MONO % (test code = 13.6 % 5905-5) EOS % (test code = 2.7 % 713-8) BASO % (test code = 1.5 % 706-2) GRAN MAT x10^3(ANC) 2.47 10*3/uL 1.99-6.95 (test code = 9321934383) IMM GRAN x10^3 (test <0.03 0-0.06 code = 3695383719) LYMPH x10^3 (test code 2.05 10*3/uL 1.09-3.23 = 731-0) MONO x10^3 (test code 0.75 10*3/uL 0.36-1.02 = 742-7) EOS x10^3 (test code = 0.15 10*3/uL 0.06-0.53 711-2) BASO x10^3 (test code 0.08 10*3/uL 0.01-0.09 = 704-7) Lab Interpretation Abnormal (test code = 63322-9) [facility] [id number] 12:02:00 Test Item Value Reference Range Interpretation Comments SCAN RESULT (test code = 2114076) SARS-COV2/RT-PCR ([facility])2020-03-13 20:20:00 Test Item Value Reference Range Interpretation Comments SARS-COV2/RT-PCR (test Negative Not Detected, Negative, code = 0581145) See external report for linked test SARS-COV-[address] [facility] KAT (test code = 3154637) Negative result for this test determines that [...] individuals suspected of COVID-19 by their healthcare provider.This test [...] justifying the authorization of the emergency use ofin vitro diagnostic tests for detection and/or diagnosis of COVID-19 is terminated under Section 564(b)(2) of the Act or the EUA is revoked under Section 564(g) of the Act.Fact Sheet for Healthcare Prov iders:https://www.[employer]/sites/default/files/product/documents/Fact_Sheet_HC _Azijnktfv_Jfjg_UVNG-WfR-8.pdfFact Sheet for Healthcare Patients:https://www.[employer]/sites/default/files/product/docume nts/Hztu_Beulm_Wpawcckt_Zhyq_LIRK-OvW-0.pdfPerforming Laboratory:[facility], [place] [address]AA, ABDOMEN, WITH 2020-03-13 14:43:00REFERRING : ANIL SALVADOR Include Abdominal VesselsUnlisted Reason for Exam - Click Yes and EnterReason Below- >YesUnlisted Reason for Exam->listed for liver transplant, screening for malignancyBAR[facility] : 1955 Sex: MFINAL REPORT MRI of the abdomen dated March 13, 2020 COMPARISON: December 19, 2018 Comment: Multiplanar T1 and T2-weighted images of the abdomen, postcontrast axial and coronal T1 weighted images of the abdomen were obtained. Liver is is cirrhotic in appearance with irregular margins. No abnormal enhancement or suspicious mass is seen in the liver. Spleen is enlarged measuring xfeqiylkmfymh40.8 x 4.9 x 11.4 cm. The splenic, superior mesenteric, portal, and hepatic veins are patent. Main portal vein measures approximately 1.4 cm. There is recannulization periumbilical vein. Paraesophagealvarices is present. Gallbladder is contracted. No gallstone or biliary dilatation is seen. Pancreas and adrenals are unremarkable. Both kidneys are normal in size and functioning. There is trace amountof ascites in the abdomen. A duodenal diverticulum is present. IMPRESSION:1. Cirrhosis with splenomegaly and portal hypertension.2. No suspicious hepatic mass.3. Trace ascites. Signed: Brenda De Dios MDReport Verified Date/Time: 03/13/2020 14:43:24 ALPHA FETOPROTEIN (AFP), TUMOR MARKER 2020-03-13 13:25:00 Test Item Value Reference Range Interpretation Comments ALPHA-FETOPROTEIN (BEAKER) (test code < ng/mL <10.0 = 1094) Plant Quality Manager ID - AAHAMIDCOMPREHENSIVE METABOLIC [id number] 12:54:00 Test Item Value Reference Range Interpretation [...] S NOT APPLICABLE FOR DIALYSIS PATIEN TS. Plant Quality Manager ID - AAHAMIDRAD, BONE DENSITY [id number] 12:46:00REFJENISE GOMEZ: ANIL SALVADOR Reason for Exam:->on liver transplant waiting list [facility] : 1955 Sex: MFINAL REPORT Bone density study, 03/13/2020 Clinical History: Screening Bone mineral density measurementLumbar spine1.110 gm/zj7Diaqije neck0.918 gm/cm2 Standard deviation from young adult population (T-score)Lumbar spine-0.9Femoral neck-1.2 Standard deviation for age adjusted population (Z-score)Lumbar spine- 1.2Femoral neck-0.7 According to medical literature, this corresponds to no increased risk of an osteoporotic fracture of the lumbar spine as compared to the young adult population.The femoral neck bone mineral density corresponds to 1-2 times increased risk of an osteoporotic fracture as compared to the young adult population. Impression: Osteopenia of the femoral neck. Completecomputer analysis will be sent shortly. Diagnostic criteria for osteoporosisBMD: Bone mineral density Normal: BMD measurement less than one standard deviation from young adult populationOsteopenia: BMDmeasurement between 1 and 2.5 standard deviationsOsteoporosis: BMD measurement greater than 2.5 standard deviationsSevere osteoporosis: Osteoporosis and one or more fragility fractures Signed: Antonio Riveraort Verified Date/Time: 03/13/2020 12:46:53 Reading Location: [address] Reading Room BILIRUBIN, [id number] 12:38:00 Test Item Value Reference Range Interpretation Comments BILIRUBIN DIRECT (BEAKER) (test 1.0 mg/dL 0.1-0.5 H code = 706) Plant Quality Manager ID - AAHAMIDPROTHROMBIN TIME/[id number] 12:23:00 Test Item Value Reference Range Interpretation [...] is 2.5-3.5 for patients wiht mechanical heart valves.CBC W/PLT COUNT & AUTO [id number] 12:16:00 Test Item Value Reference Range Interpretation [...] PERCENT (BEAKER) (test code = 2801) BLOOD [id number] 20:00:00 Test Item Value Reference Range Interpretation Comments CULTURE (BEAKER) (test No growth in 5 days code = 1095) BLOOD [id number] 20:00:00 Test Item Value Reference Range Interpretation Comments CULTURE (BEAKER) (test No growth in 5 days code = 1095) POCT-GLUCOSE [id number] 07:47:00 Test Item Value Reference Range Interpretation Comments POC-GLUCOSE METER 121 mg/dL 70-110 H : [facility] (test code = [place], 1538) 17354: Plant Quality Manager/Techni zaire ID = [id number] for RADHA GARVEY HEPATIC FUNCTION [id number] 07:24:00 Test Item Value Reference Range Interpretation [...] (test code = 25 U/L 6-55 347) Plant Quality Manager ID - ALEJANDRODAMIAN Poncho slightly ictericPOCT-GLUCOSE [id number] 22:18:00 Test Item Value Reference Range Interpretation Comments POC-GLUCOSE METER 143 mg/dL 70-110 H : TESTED A T [facility] 6720 ([facility]) (test code = [facility], 153) 39166: Plant Quality Manager/Techni zaire ID = [id number] for CA RBAJAL, ANU POCT-GLUCOSE [id number] 17:24:00 Test Item Value Reference Range Interpretation Comments POC-GLUCOSE METER 214 mg/dL 70-110 H : TESTED A T [facility] 6720 (BEAKER) (test code = [facility], 1538) 49874: Plant Quality Manager/Techni zaire ID = [id number] for SA NTOS, WADE POCT-GLUCOSE [id number] 13:32:00 Test Item Value Reference Range Interpretation Comments POC-GLUCOSE METER 127 mg/dL 70-110 H : TESTED A T [facility] 6720 (AKER) (test code = [facility], 1538) 89567: Plant Quality Manager/Techni zaire ID = [id number] for SA NTOS, WADE POCT-GLUCOSE [id number] 12:08:00 Test Item Value Reference Range Interpretation Comments POC-GLUCOSE METER 124 mg/dL 70-110 H : TESTED A T [facility] 6720 (BEAKER) (test code = [facility], 1538) 54024: Plant Quality Manager/Techni zaire ID = [id number] for FO CEDRIC, CHARI POCT-GLUCOSE [id number] 08:16:00 Test Item Value Reference Range Interpretation Comments POC-GLUCOSE METER 117 mg/dL 70-110 H : TESTED A T [facility] 6720 (BEAKER) (test code = [facility] [place], 1538) 73128: Plant Quality Manager/Techni zaire ID = [id number] for WADE MCMULLEN BASIC METABOLIC [id number] 06:13:00 Test Item Value Reference Range Interpretation [...] S NOT APPLICABLE FOR DIALYSIS PATIEN TS. Plant Quality Manager ID - KRISHNA ZAVALETApecimekaz slightly ictericHEPATIC FUNCTION [id number] 06:13:00 Test Item Value Reference Range Interpretation [...] (test code = 27 U/L 6-55 347) Plant Quality Manager ID - KRISHNA Isaac slightly ictericPROTHROMBIN TIME/[id number] 05:46:00 Test Item Value Reference Range Interpretation [...] is 2.5-3.5 for patients wiht mechanical heart valves.CBC W/PLT COUNT & AUTO [id number] 05:21:00 Test Item Value Reference Range Interpretation [...] PERCENT (BEAKER) (test code = 2801) POCT-GLUCOSE [id number] 22:38:00 Test Item Value Reference Range Interpretation Comments POC-GLUCOSE METER 181 mg/dL 70-110 H : TESTED A T [facility] 6720 (BEAKER) (test code = [facility], 1538) 84824: Plant Quality Manager/Techni zaire ID = [id number] for CAREY LINARES RON (CELLAVISION MANUAL DIFF)2019-12-28 [...] CONCENTRATION Decreased (CELLAVISION)(BEAKER) (test code = 3438) Plant Quality Manager ID - Nima Villafuerte comments: Slide comments:CBC W/PLT COUNT & AUTO [id number] 15:11:00 Test Item Value Reference Range Interpretation [...] PERCENT (BEAKER) (test code = 2801) POCT-GLUCOSE [id number] 10:15:00 Test Item Value Reference Range Interpretation Comments POC-GLUCOSE METER 178 mg/dL 70-110 H : TESTED A T [facility] 6720 (BEAKER) (test code = [facility] Juan [address] [place], 1538) 20363: Plant Quality Manager/Techni zaire ID = [id number] for DELPHINE JUAREZ POCT-GLUCOSE [id number] 09:08:00 Test Item Value Reference Range Interpretation Comments POC-GLUCOSE METER 167 mg/dL 70-110 H : TESTED A T [facility] 6720 (BEAKER) (test code = [facility] Juan [address] [place], 1538) 0[address]25: Plant Quality Manager/Techni zaire ID = [id number] for SAMIRA COWAN BASIC METABOLIC [id number] 07:06:00 Test Item Value Reference Range Interpretation [...] S NOT APPLICABLE FOR DIALYSIS PATIEN TS. Plant Quality Manager ID - PIAYA LSpecimen slightly ictericHEPATIC FUNCTION [id number] 07:06:00 Test Item Value Reference Range Interpretation [...] (test code = 20 U/L 6-55 347) Plant Quality Manager ID - KRISHNA LSpecimen slightly ictericPOCT-GLUCOSE [id number] 22:05:00 Test Item Value Reference Range Interpretation Comments POC-GLUCOSE METER 216 mg/dL 70-110 H : TESTED A T [facility] 6720 (BEAKER) (test code = [facility], 1538) 80000: Plant Quality Manager/Techni zaire ID = [id number] for DAVID TALBERT POCT-GLUCOSE [id number] 17:07:00 Test Item Value Reference Range Interpretation Comments POC-GLUCOSE METER 244 mg/dL 70-110 H : TESTED A T [facility] 6720 (BEAKER) (test code = [facility], 1538) 80160: Plant Quality Manager/Techni zaire ID = [id number] for IB RAHIM, SERKALEM CBC W/PLT COUNT & AUTO [id number] 12:15:00 Test Item Value Reference Range Interpretation [...] PERCENT (BEAKER) (test code = 2801) POCT-GLUCOSE [id number] 11:54:00 Test Item Value Reference Range Interpretation Comments POC-GLUCOSE METER 226 mg/dL 70-110 H : TESTED A T [facility] 6720 (BEAKER) (test code = [place], 1538) 72258: Plant Quality Manager/Techni zaire ID = [id number] for IB DIDI, NAIDAM BASIC METABOLIC [id number] 08:18:00 Test Item Value Reference Range Interpretation [...] S NOT APPLICABLE FOR DIALYSIS PATIEN TS. Plant Quality Manager ID - NTPPOCT-GLUCOSE [id number] 08:07:00 Test Item Value Reference Range Interpretation Comments POC-GLUCOSE METER 166 mg/dL 70-110 H : TESTED A T [facility] 6720 (BEAKER) (test code = [facility] [employer] [facility], 1538) 15419: Plant Quality Manager/Techni zaire ID = [id number] for CHUCHO SALDIVAR HEPATIC FUNCTION [id number] 05:05:00 Test Item Value Reference Range Interpretation [...] (test code = 19 U/L 6-55 347) Plant Quality Manager ID - EDASISpecimen yogi ictericPOCT-GLUCOSE [id number] 17:47:00 Test Item Value Reference Range Interpretation Comments POC-GLUCOSE METER 222 mg/dL 70-110 H : TESTED A T [facility] 6720 (BEAKER) (test code = [facility] [employer] [facility], 1538) 08626: Plant Quality Manager/Techni zaire ID = [id number] for BRAXTON MORAN POCT-GLUCOSE [id number] 12:25:00 Test Item Value Reference Range Interpretation Comments POC-GLUCOSE METER 311 mg/dL 70-110 H : TESTED A T [facility] 6720 (BEAKER) (test code = [facility] Juan J [facility], 1538) 87378: Plant Quality Manager/Techni zaire ID = [id number] for BRAXTON MORAN POCT-GLUCOSE [id number] 07:49:00 Test Item Value Reference Range Interpretation Comments POC-GLUCOSE METER 190 mg/dL 70-110 H : TESTED A T [facility] 6720 (BEAKER) (test code = [facility], 1538) 88696: Plant Quality Manager/Techni zaire ID = [id number] for BRAXTON MORAN VITAMIN B12 AND [id number] 06:11:00 Test Item Value Reference Range Interpretation Comments VITAMIN B12 (BEAKER) (test code = 873 pg/mL 213-816 H 774) FOLATE (BEAKER) (test code = 362) 12.30 ng/mL >=7.00 Plant Quality Manager ID - EDASIBASIC METABOLIC [id number] 05:21:00 Test Item Value Reference Range Interpretation [...] S NOT APPLICABLE FOR DIALYSIS PATIEN TS. Plant Quality Manager ID - EDASIHEPATIC FUNCTION [id number] 05:21:00 Test Item Value Reference Range Interpretation [...] (test code = 19 U/L 6-55 347) Plant Quality Manager ID - EDASICBC W/PLT COUNT & AUTO [id number] 05:12:00 Test Item Value Reference Range Interpretation [...] PERCENT (BEAKER) (test code = 2801) PROTHROMBIN TIME/[id number] 04:56:00 Test Item Value Reference Range Interpretation [...] is 2.5-3.5 for patients wiht mechanical heart valves.POCT-GLUCOSE [id number] 22:11:00 Test Item Value Reference Range Interpretation Comments POC-GLUCOSE METER 195 mg/dL 70-110 H : TESTED Lana T [facility] 6720 (BEAKER) (test code = [place], 1538) 64932: Plant Quality Manager/Techni zaire ID = [id number] for MELISSA REAL SAMIRA HEMOGLOBIN AND [id number] 16:15:00 Test Item Value Reference Range Interpretation Comments HEMOGLOBIN (BEAKER) (test code = 8.6 GM/DL 13.7-17.5 L 410) HEMATOCRIT (BEAKER) (test code = 30.2 % 40.1-51.0 L 411) Plant Quality Manager ID - [id number] 13:02:00 Test Item Value Reference Range Interpretation Comments FERRITIN (BEAKER) (test code = 73.10 ng/mL 5.00-275.00 361) Plant Quality Manager ID - EDASIIRON, TIBC, % SAT. (WITHOUT FERRITIN)2019-12-25 12:42:00 Test Item Value Reference Range Interpretation Comments IRON (BEAKER) (test code = 547) 29.0 ug/dL 40.0-160.0 L TOTAL IRON BINDING CAPACITY 151 ug/dL 250-450 L (BEAKER) (test code = 769) IRON % SATURATION (2) (BEAKER) 19 % 20-55 L (test code = 2590) Plant Quality Manager ID - EDASICOMPREHENSIVE METABOLIC [id number] 06:44:00 Test Item Value Reference Range Interpretation [...] S NOT APPLICABLE FOR DIALYSIS PATIEN TS. Plant Quality Manager ID - EDASICBC W/PLT COUNT & AUTO [id number] 05:55:00 Test Item Value Reference Range Interpretation [...] PERCENT (BEAKER) (test code = 2801) POCT-GLUCOSE [id number] 23:39:00 Test Item Value Reference Range Interpretation Comments POC-GLUCOSE METER 307 mg/dL 70-110 H : TESTED A T [facility] 6720 (BEAKER) (test code = NICLOE Arita [facility], 1538) 11110: Plant Quality Manager/Techni zaire ID = [id number] for Erendira Talbert (contrac t) RAD, CHEST, 1 VIEW, NON [id number] 18:52:00REFERRING MD: ANIL SALVADOR Reason for exam:->sobShould this be performed at the bedside?->YesFINAL REPORT TECHNIQUE: Frontal view of the chest. INDICATION: 64-year-old man with shortness of breath. COMPARISON: Chest radiograph 12/19/2018. FINDINGS: LINES/TUBES: None. LUNGS:Lungs are well inflated. No consolidation or pulmonary edema. PLEURA: No pneumothorax or significantpleural effusion. HEART AND MEDIASTINUM: Persistent prominence of the cardiac silhouette. Atherosclerotic calcifications in the thoracic aorta. BONES AND SOFT TISSUES: Deformity of the right anterior seventh rib, new since 12/19/2018. Soft tissues are unremarkable. IMPRESSION:No acute cardiopulmonary abnormalities. New deformity of the right anterior seventh rib, suggestive of age-indeterminate fracture. Signed: Daniella Colunga MDReport Verified Date/Time: 12/24/2019 18:52:34 Reading Location: [address] Consult Reading Room BASI METABOLIC PANEL [...] Specimen slightly ictericCBC W/PLT COUNT & AUTO [id number] 08:54:00 Test Item Value Reference Range Interpretation [...] (BEAKER) (test code = 2801) HEPATITIS C [id number] 12:25:00 Test Item Value Reference Range Interpretation Comments HEPATITIS C ANTIBODY (BEAKER) (test Reactive Nonreactive A code = 367) ALPHA FETOPROTEIN (AFP), TUMOR [id number] 15:45:00 Test Item Value Reference Range Interpretation Comments ALPHA-FETOPROTEIN (BEAKER) (test 2.7 ng/mL <10.0 code = 1094) BASIC METABOLIC [id number] 15:36:00 Test Item Value Reference Range Interpretation [...] DIALYSIS PATIEN TS. Specimen slightly ictericHEPATIC FUNCTION [id number] 15:35:00 Test Item Value Reference Range Interpretation [...] 21 U/L 6-55 347) Specimen slightly ictericPROTHROMBIN [id number] 15:00:00 Test Item Value Reference Range Interpretation [...] is 2.5-3.5 for patients wiht mechanical heart valves.CBC W/PLT COUNT & AUTO [id number] 14:53:00 Test Item Value Reference Range Interpretation [...] code = 2801) ALPHA FETOPROTEIN (AFP), TUMOR [id number] 14:10:00 Test Item Value Reference Range Interpretation Comments ALPHA-FETOPROTEIN (BEAKER) (test 2.7 ng/mL <10.0 code = 1094) BASIC METABOLIC [id number] 13:52:00 Test Item Value Reference Range Interpretation [...] DIALYSIS PATIEN TS. Specimen slightly ictericHEPATIC FUNCTION [id number] 13:52:00 Test Item Value Reference Range Interpretation [...] 24 U/L 6-55 347) Specimen slightly ictericPROTHROMBIN [id number] 13:49:00 Test Item Value Reference Range Interpretation [...] is 2.5-3.5 for patients wiht mechanical heart valves.CBC W/PLT COUNT & AUTO [id number] 13:35:00 Test Item Value Reference Range Interpretation [...] (test code = 2801) POCT HEMOGLOBIN A1C [id number] 21:30:00 Test Item Value Reference Range Interpretation Comments POCT HBA1C (test code = 4548-4) 7.4 % 4-6 A Lab Interpretation (test code = Abnormal 43886-5) [facility] [id number] 21:30:00 Test Item Value Reference Range Interpretation Comments POCT HBA1C (test code = 4548-4) 7.4 % 4-6 A Lab Interpretation (test code = Abnormal 99112-9) [id number] 14:59:00 Test Item Value Reference Range Interpretation Comments T4 TOTAL (BEAKER) (test code = 895) 5.7 ug/dL 4.9-11.7 [id number] 13:20:00 Test Item Value Reference Range Interpretation Comments T3 TOTAL (BEAKER) (test code = 656) 113 ng/dL 48-159 CYTOMEGALOVIRUS ANTIBODY, [id number] 11:11:00 Test Item Value Reference Range Interpretation Comments CYTOMEGALOVIRUS, IGG (BEAKER) Positive Negative, Equivocal A (test code = 3429) CMV IgG Result Interpretation: </= 0.8 Al Negative 0.9-1.0 Al Equivocal >/=1.1 Al PositiveCYTOMEGALOVIRUS ANTIBODY, [id number] 11:11:00 Test Item Value Reference Range Interpretation Comments CYTOMEGALOVIRUS IGM ANTIBODY Negative Negative, Equivocal (BEAKER) (test code = 3437) CMV IgM Result Interpretation: </= 0.8 Al Negative 0.9-1.0 Al Equivocal >/= 1.1 Al PositiveEBV ANTIBODY, [id number] 11:08:00 Test Item Value Reference Range Interpretation Comments EDENILSON TAVERAS VIRAL CAPSID Positive Negative, Equivocal A ANTIGEN IGG (BEAKER) (test code = 3415) Edenilson Taveras Viral Capsid Antigen IgG Result Interpretation: </= 0.8 Al Negative 0.9-1.0 Al Equivocal >/= 1.1 Al PositiveEBV ANTIBODY, [id number] 11:08:00 Test Item Value Reference Range Interpretation Comments EDENILSON TAVERAS VIRAL CAPSID Negative Negative, Equivocal ANTIGEN IGM (BEAKER) (test code = 3418) Edenilson Taveras Viral Capsid Antigen IgM Result Interpretation: </= 0.8 Al Negative 0.9-1.0 Al Equivocal >/= 1.1 Al PositiveVARICELLA ZOSTER ANTIBODY, [id number] 11:08:00 Test Item Value Reference Range Interpretation Comments VARICELLA ZOSTER IGG (AL) (BEAKER) > (test code = 3197) VARICELLA ZOSTER RESULT INTERPRETATIONS: <=0.8 Al Nonreactive: Presumed non- immune to VZV 0.9-1.0Al Equivocal >=1.1 Al Reactive: Presumed immune to VZV [id number]-[id number] 13:11:00 Test Item Value Reference Range Interpretation Comments ALPHA-1 ANTITRYPSIN (BEAKER) 155.30 mg/dL 90.00-200.00 (test code = 502) HEMOGLOBIN [id number] 13:08:00 Test Item Value Reference Range Interpretation Comments HEMOGLOBIN A1C (BEAKER) (test code = 6.4 % 4.3-6.1 H 368) HEPATITIS A ANTIBODY, [id number] 12:51:00 Test Item Value Reference Range Interpretation Comments HEPATITIS A IGG ANTIBODY (BEAKER) Reactive Nonreactive A (test code = 2797) HEPATITIS C [id number] 12:51:00 Test Item Value Reference Range Interpretation Comments HEPATITIS C ANTIBODY (BEAKER) (test Reactive Nonreactive A code = 367) [id number] 12:48:00 Test Item Value Reference Range Interpretation Comments PROSTATE SPECIFIC ANTIGEN (BEAKER) 0.4 ng/mL 0.0-4.0 (test code = 844) HIV-1 ANTIGEN WITH HIV-1/2 [id number] 12:48:00 Test Item Value Reference Range Interpretation Comments HIV-1 ANTIGEN WITH HIV 1\\T\\2 Nonreactive Nonreactive ANTIBODY (2) (BEAKER) (test code = 2586) VITAMIN D, 85-[id number] 12:46:00 Test Item Value Reference Range Interpretation Comments VITAMIN D 25-OH (BEAKER) (test code 7.7 ng/mL 6.6-49.9 = 2764) Effective 03/08/2017: Reference Range ChangeNew: 6.6-49.9 ng/mL Previous: 13.0- 47.8 ng/mLRecommendedVitamin D Target Range: 30.0-40.0 ng/mLURINALYSIS W/ [id number] 11:55:00 Test Item Value Reference Range Interpretation [...] /LPF SOURCE(BEAKER) (test code = 2795) CRYPTOCOCCAL [id number] 11:10:00 Test Item Value Reference Range Interpretation Comments CRYPTOCOCCAL ANTIGEN, SERUM Negative Negative, Interference (BEAKER) (test code = 1828) [id number] 10:59:00 Test Item Value Reference Range Interpretation Comments THYROID STIMULATING HORMONE 2.10 uIU/mL 0.35-4.94 (BEAKER) (test code = 772) [id number] 10:59:00 Test Item Value Reference Range Interpretation Comments FERRITIN (BEAKER) (test code = 361) 69 ng/mL 5-275 [id number] 10:51:00 Test Item Value Reference Range Interpretation Comments RPR SCREEN (BEAKER) (test code = Nonreactive Nonreactive 420) [id number] 10:49:00 Test Item Value Reference Range Interpretation Comments TRANSFERRIN (BEAKER) (test code = 197 mg/dL 174-382 541) Specimen slightly [id number] 10:45:00 Test Item Value Reference Range Interpretation Comments MAGNESIUM (BEAKER) (test code = 1.5 mg/dL 1.6-2.6 L 627) [id number] 10:45:00 Test Item Value Reference Range Interpretation Comments PHOSPHORUS (BEAKER) (test code = 3.6 mg/dL 2.3-4.7 604) URIC [id number] 10:45:00 Test Item Value Reference Range Interpretation Comments URIC ACID (BEAKER) (test code = 4.8 mg/dL 2.6-7.2 773) Specimen slightly ictericCOMPREHENSIVE METABOLIC [id number] 10:45:00 Test Item Value Reference Range Interpretation [...] FOR DIALYSIS PATIEN TS. Specimen slightly ictericLIPID [id number] 10:45:00 Test Item Value Reference Range Interpretation [...] 160-189 Very High >=190 Specimen slightly ictericBILIRUBIN, [id number] 10:45:00 Test Item Value Reference Range Interpretation Comments BILIRUBIN DIRECT (BEAKER) (test 1.6 mg/dL 0.1-0.5 H code = 706) GAMMA GLUTAMYL TRANSFERASE (GGT)2018-12-20 10:45:00 Test Item Value Reference Range Interpretation Comments GAMMA GLUTAMYL TRANSFERASE (BEAKER) 33 U/L 9-64 (test code = 364) Specimen slightly [id number] 10:42:00 Test Item Value Reference Range Interpretation Comments PARTIAL THROMBOPLASTIN TIME 37.9 seconds 22.5-36.0 H (BEAKER) (test code = 760) PROTHROMBIN [id number] 10:36:00 Test Item Value Reference Range Interpretation [...] is 2.5-3.5 for patients wiht mechanical heart valves.[id number] 10:36:00 Test Item Value Reference Range Interpretation Comments ETHANOL (BEAKER) (test code = 400) < mg/dL <=10 [id number] 10:36:00 Test Item Value Reference Range Interpretation Comments FIBRINOGEN LEVEL (BEAKER) (test 207 mg/dl 225-434 L code = 658) BLOOD GAS, [id number] 10:35:00 Test Item Value Reference Range Interpretation [...] 21.0 % CBC W/PLT COUNT & AUTO [id number] 10:25:00 Test Item Value Reference Range Interpretation [...] PERCENT (BEAKER) (test code = 2801) CALCIUM, [id number] 10:20:00 Test Item Value Reference Range Interpretation Comments CALCIUM IONIZED (BEAKER) (test 1.05 mmol/L 1.12-1.27 L code = 698) PH, BLOOD (BEAKER) (test code = 7.41 1810) RAD, MANDIBLE, MIN 4 [id number] 16:56:00REFERRING : ANIL SALVADOR Reason for Exam:->pretransplant liver evaluationFINAL REPORT TECHNIQUE: Minimum four views of the mandible. INDICATION: pretransplant liver evaluation. COMPARISON: None. FINDINGS:No fracture or dislocation.No periapical lucencies.Caries of a maxillary molar, side indeterminate.Mild degenerative disc changes at C4-C5, C5-C6, andC6-C7. IMPRESSION: No periapical lucency. Caries of a maxillary molar, side indeterminate. Signed: Tawanda Alvarez Verified Date/Time: 12/19/2018 16:56:31 Reading Location: [address] Radiology Reading Room RAD, CHEST, 2 [id number] 15:51:00REFERRING CARO SALVADOR Reason for Exam:- >pretransplant liver evaluationFINAL REPORT Chest, PA and lateral. History: Transplant evaluation. Comparison:10/28/2018. Discussion: The cardiomediastinal silhouette and pulmonary vasculature are within normal li mits. The lungs are clear without evidence of consolidation or effusion. There are no acute osseous abnormalities. The soft tissues are unremarkable. IMPRESSION: No acute cardiopulmonary abnormality. Signed: Farzaneh Walker Verified Date/Time: 12/19/2018 15:51:17 [facility] MR, ABDOMEN, [id number] 14:51:00REFERRING MD: ANIL LEROYTFINAL REPORT TECHNIQUE: MRI of the abdomen WITHOUT and WITH intravenous contrast. INDICATION: pretransplant liver evaluation. COMPARISON: None. FINDINGS: LOWER THORAX: Unremarkable. LIVER: Nodular, cirrhotic. A cyst in segment VII measures 1 cm on series 3 image 23. A rounded areaof arterial segment III measures 1.4 cm on [...] measures 1.3 cm. PERITONEUM/RETROPERITONEUM: Small volume ascites. Thepartially visualized umbilical hernia contains ascites with multiple [...] and large esophageal varices. Signed: Tawanda Alvarez [facility] Verified Date/Time: 12/19/2018 14:51:24 Reading Location: [address] Radiology Reading Room ETHANOL 2018-12-06 11:12:00 Test Item Value Reference Range Interpretation Comments ETHANOL (BEAKER) (test code = 400) < mg/dL <=10 BASIC METABOLIC [id number] 10:56:00 Test Item Value Reference Range Interpretation [...] DIALYSIS PATIEN TS. Specimen moderately ictericHEPATIC FUNCTION [id number] 10:56:00 Test Item Value Reference Range Interpretation [...] 27 U/L 6-55 347) Specimen moderately ictericPROTHROMBIN TIME/[id number] 10:40:00 Test Item Value Reference Range Interpretation [...] is 2.5-3.5 for patients wiht mechanical heart valves.CBC W/PLT COUNT & AUTO [id number] 10:38:00 Test Item Value Reference Range Interpretation [...] PERCENT (BEAKER) (test code = 2801) BLOOD [id number] 08:00:00 Test Item Value Reference Range Interpretation Comments CULTURE (BEAKER) (test No growth in 5 days code = 1095) BLOOD [id number] 08:00:00 Test Item Value Reference Range Interpretation Comments CULTURE (BEAKER) (test No growth in 5 days code = 1095) BODY FLUID CULTURE + GRAM [id number] 12:20:00 Test Item Value Reference Range Interpretation Comments CULTURE (BEAKER) (test code No growth = 1095) GRAM STAIN RESULT (BEAKER) 1+ WBCs (test code = 1123) GRAM STAIN RESULT (BEAKER) No organisms seen (test code = 43542) HEPATITIS C PCR, [id number] 08:32:00 Test Item Value Reference Range Interpretation Comments HCV RESULT COMPONENT HCV RNA not detected HCV RNA not detected (BEAKER) (test code = 2699) This test uses a Real-Time Polymerase Chain Reaction (RT-PCR) methodology and was performed using [employer] Ampliprep/KHOA TaqMan HCV test kit version 2.0 ([employer]).Reportable range for this assay is 15 - 100,000,000 IU per mL (1.18 - 8.00 Log IU/mL).POCT-GLUCOSE [id number] 08:09:00 Test Item Value Reference Range Interpretation Comments POC-GLUCOSE METER 117 mg/dL 70-[address] [facility] 67[address] (BEAKER) (test code = ABELMARYAN TRUJILLO 1538) [address] CALCIUM, [id number] 05:54:00 Test Item Value Reference Range Interpretation Comments CALCIUM IONIZED (BEAKER) (test 1.01 mmol/L 1.12-1.27 L code = 698) PH, BLOOD (BEAKER) (test code = 7.45 1810) COMPREHENSIVE METABOLIC [id number] 05:07:00 Test Item Value Reference Range Interpretation [...] APPLICABLE FOR DIALYSIS PATIEN TS. Specimen slightly [id number] 05:06:00 Test Item Value Reference Range Interpretation Comments PHOSPHORUS (BEAKER) (test code = 3.3 mg/dL 2.3-4.7 604) [id number] 05:06:00 Test Item Value Reference Range Interpretation Comments MAGNESIUM (BEAKER) (test code = 1.5 mg/dL 1.6-2.6 L 627) CBC W/PLT COUNT & AUTO [id number] 04:43:00 Test Item Value Reference Range Interpretation [...] PERCENT (BEAKER) (test code = 2801) POCT-GLUCOSE [id number] 21:35:00 Test Item Value Reference Range Interpretation Comments POC-GLUCOSE METER 154 mg/dL 70-110 H TESTED AT [place] [address] ([facility]) (test code = NICOLE [place] 1538) [address] POCT-GLUCOSE [id number] 17:21:00 Test Item Value Reference Range Interpretation Comments POC-GLUCOSE METER 138 mg/dL 70-110 H TESTED AT [place] [address] ([facility]) (test code = NICOLE Arita [place] 1538) [address] POCT-GLUCOSE [id number] 13:27:00 Test Item Value Reference Range Interpretation Comments POC-GLUCOSE METER 166 mg/dL 70-110 H TESTED AT [place] [address] ([facility]) (test code = NICOLE Arita [place] 1538) [address] CBC W/PLT COUNT & AUTO [id number] 12:00:00 Test Item Value Reference Range Interpretation [...] 3438) Received comment: User comments: Slide comments:POCT-GLUCOSE [id number] 11:52:00 Test Item Value Reference Range Interpretation Comments POC-GLUCOSE METER 180 mg/dL 70-[address] [facility] 6720 (BEAKER) (test code = NICOLE TRUJILL[place] 1538) [address] POCT-GLUCOSE [id number] 08:09:00 Test Item Value Reference Range Interpretation Comments POC-GLUCOSE METER 115 mg/dL 70-110 [facility] ([facility]ER) (test code = NICOLE TRUJILL[place] 1538) [address] COMPREHENSIVE METABOLIC [id number] 05:59:00 Test Item Value Reference Range Interpretation [...] APPLICABLE FOR DIALYSIS PATIEN TS. Specimen slightly [id number] 05:57:00 Test Item Value Reference Range Interpretation Comments MAGNESIUM (BEAKER) (test code = 1.6 mg/dL 1.6-2.6 627) POCT-GLUCOSE [id number] 22:30:00 Test Item Value Reference Range Interpretation Comments POC-GLUCOSE METER 186 mg/dL 70-[address] [facility] 6720 (BEAKER) (test code = ABELMARYAN [place] 1538) [address] POCT-GLUCOSE [id number] 18:33:00 Test Item Value Reference Range Interpretation Comments POC-GLUCOSE METER 117 mg/dL 70-[address] [facility] 6720 (BEAKER) (test code = N[place] 1538) [address] U/S, [id number] 17:34:00REFERRING MD: ANIL SALVADOR Please give 25g albumin if over 3L removed, 50g if over 5L removedReason for exam:->ascites, encephalopathy, r/o SBPFINAL REPORT PROCEDURE: Ultrasound- guided paracentesis. Operators: This procedure was performed by DARYL Charles under my direct supervision. INDICATION: Ascites. DESCRIPTION:After obtaining informed written consent, ultrasound scan of the abdomen identified ascites in the right mid quadrant. The overlying skin was prepped and draped in the usual, sterile fashion and local 2% lidocaine anesthesia was administered. A 5 Ugand[place] catheter was advanced into the peritoneal cavityand 1300 cc of addison fluid was removed. The catheter was removed without immediate complication. Samples left with interstitial sent to the lab for analysis. IMPRESSION:Uncomplicated ultrasound-guided paracentesis with 1300 cc fluid removed. Signed: Mauricio Cullen MDReport Verified Date/Time: 10/29/2018 17:34:00 Reading Location: [address] Ultrasound Reading Room VANCOMYCIN LEVEL, [id number] 17:22:00 Test Item Value Reference Range Interpretation Comments VANCOMYCIN TROUGH (BEAKER) (test 7.3 ug/mL 10.0-20.0 L code = 522) CBC W/PLT COUNT & AUTO [id number] 15:00:00 Test Item Value Reference Range Interpretation [...] = 2801) BODY FLUID CELL COUNT WITH [id number] 13:45:00 Test Item Value Reference Range Interpretation [...] Tube (test code = 2873) RESPIRATORY PANEL [id number] 12:27:00 Test Item Value Reference Range Interpretation [...] [facility]ENTER Molecular Diagnostics Laboratory using the [employer] Respiratory Panel. It is FDA cleared and has been verified and approved by the [facility] Molecular Diagnostics Laboratory for clinical use on nasopharyngeal swab specimens.The performance of the FilmArrayRP has not been established in individuals who received influenza vaccine. Recent administration of a nasal influenza vaccine may cause false positive results for Influenza A and/orInfluenza B.POCT-GLUCOSE [id number] 12:16:00 Test Item Value Reference Range Interpretation Comments POC-GLUCOSE METER 196 mg/dL 70-[address] [facility] [address] [facility] (test code = ABELMARYAN [facility]rita [facility] 1538) [address] RESPIRATORY PANEL [id number] 10:59:00 Test Item Value Reference Range Interpretation [...] MEDICAL CENTER Molecular Diagnostics Laboratory using the [employer] FilmArray Respiratory Panel. It is FDA cleared and has been verified and approved by the [facility] Molecular Diagnostics Laboratory for clinical use on nasopharyngeal swab specimens.The performance of the FilmArrayRP has not been established in individuals who received influenza vaccine. Recent administration of a nasal influenza vaccine may cause false positive results for Influenza A and/orInfluenza B.POCT-GLUCOSE [id number] 08:15:00 Test Item Value Reference Range Interpretation Comments POC-GLUCOSE METER 184 mg/dL 70-[address] [facility] [address] ([facility]) (test code = NICOLE TRUJILL[place] 1538) [address] CBC W/PLT COUNT & AUTO [id number] 07:49:00 Test Item Value Reference Range Interpretation Comments WHITE BLOOD CELL COUNT ([facility]) 7.2 K/ L 3.5-10.5 (test code = [...] APPLICABLE FOR DIALYSIS PATIEN TS. Specimen moderately [id number] 04:31:00 Test Item Value Reference Range Interpretation Comments MAGNESIUM ([facility]) (test code = 1.9 mg/dL 1.6-2.6 627) LACTIC ACID, [id number] 04:18:00 Test Item Value Reference Range Interpretation Comments LACTATE BLOOD VENOUS (2) ([facility]) 1.3 mmol/L 0.5-2.2 (test code = 2872) Specimen moderately ictericPOCT-GLUCOSE [id number] 18:00:00 Test Item Value Reference Range Interpretation Comments POC-GLUCOSE METER 121 mg/dL 70-[address] [facility] 67 ([facility]) (test code = NICOLE Arita [facility] 1538) [address] [id number] 12:39:00 Test Item Value Reference Range Interpretation Comments PROCALCITONIN ([facility]) (test code 4.50 ng/mL <0.05 H = 3036) SEPSIS RISK (ng/mL)Low: 0.05-0.50Intermediate: 0.51-2.00High: >=2.01POCT- GLUCOSE [id number] 12:20:00 Test Item Value Reference Range Interpretation Comments POC-GLUCOSE METER 148 mg/dL 70-[address] [facility] 67[address] ([facility]) (test code = NICOLE Arita [facility] 1538) [address] LEGIONELLA ANTIGEN, [id number] 12:13:00 Test Item Value Reference Range Interpretation Comments L. PNEUMOPHILA Negative - see Negative fo r L. SEROGP 1 UR AG comment pneumophila ([employer]) (test code serogrou p 1 antigen, = 1156) suggesting no r ecent or current infe ction with this serog roup. Legionellosis c annot be ruled out si nce other serogroup s and species may cau se disease. STREP PNEUMONIAE [id number] 12:13:00 Test Item Value Reference Range Interpretation Comments STREP PNEUMONIAE Presumptive negative Presumptive negative ANTIGEN ([facility]) for pneumococcal for pneumococcal (test code = 1615) pneumonia - see pneumonia - see comment commen Presumptive negative for pneumococcal pneumonia, suggesting no current or recent pneumococcal infection. Infection due to S. pneumoniae cannot be ruled out since the antigen present in the sample may be below the detection limit of the test. RAPID INFLUENZA A&B [id number] 12:11:00 Test Item Value Reference Range Interpretation Comments RAPID INFLUENZA A AG (BEAKER) Negative Negative, Inconclusive (test code = 1622) RAPID INFLUENZA B AG (BEAKER) Negative Negative, Inconclusive (test code = 1623) LACTIC ACID, [id number] 10:51:00 Test Item Value Reference Range Interpretation Comments LACTATE BLOOD VENOUS (2) (BEAKER) 3.0 mmol/L 0.5-2.2 H (test code = 2872) Specimen moderately ictericU/S, ABDOMINAL, [id number] 07:19:00REFERRING MD: ANIL SALVADOR Please perform with dopplersReason for exam:->patient wtih cirrhosis, sepsisFINAL REPORT ULTRASOUND ABDOMEN COMPLETE, ULTRASOUND DUPLEX DOPPLER HISTORY: Cirrhosis, sepsis COMPARISON: No comparison cross-sectional imaging of the abdomen TECHNIQUE: Real-timeultrasound of the abdomen was performed. Examination included spectral and color-flow Doppler evaluation of the liver and portal venous system. FINDINGS: Sonographic windows are limited by patient bodyhabitus. The patient was also noncooperative, limiting the [...] in size, contour, and echogenicity. The right kidneymeasures 12.0 cm in length and the left [...] aorta. The distal abdominal aorta was obscured. IMPRESSION:1. Heterogeneous hepatic echogenicity suggestive of diffuse hepatic parenchymal disease such as cirrhosis. No hepatic mass lesion was visualized. Mild splenomegaly. 2. No gallstones are visualized. 3. Patent portal venous system with normal flow direction. 4. Minimal ascites. Signed: Curtis Almanza MDReport Verified Date/Time: 10/28/2018 07:19:25 Reading Location: [facility] B1 C013T Transitional Reading Room RAPID DRUG SCREEN, [id number] 07:07:00 Test Item Value Reference Range Interpretation [...] unconfirmed qualitative test result for the clinical managementof patients in emergency situations. Chain of custody not maintained. Some xkgc-pxk-gprndaz medications, as well as adulterants, may cause inaccurate results. Clinical correlation should be applied. A more comprehensive drug screen or confirmation of a detected drug may be performed upon request.CT, BRAIN, WITHOUT [id number] 06:42:00REFERRING MD: ANIL LEROYTFINAL REPORT CT, BRAIN, WITHOUT CONTRAST CLINICAL INDICATION: Confusion/delirium, altered LOC, unexplained COMPARISON: None TECHNIQUE: Noncontrast axial CT imaging of the brain andskull. Coronal and sagittal reformats obtained. DOSE REDUCTION: Dose modulation, iterative reconstruction, and/or weight-based adjustment of the mA/kV was utilized to reduce the radiation dose to as low as reasonably achievable. FINDINGS:Cerebral parenchyma: Age related parenchymal volume loss and [...] maxillary sinus presentation cysts or polyps, 2 cm.Orbital contents: Included portions unremarkable. Additional findings: None. IMPRESSION:No acute intracranial abnormality. 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 If there is pers istent clinical concern for intracranial pathology, MR examination is recommended for further characterization. Signed: Efrain Navarrete MDReport Verified Date/Time: 10/28/2018 06:42:47 VITAMIN B12 AND [id number] 06:21:00 Test Item Value Reference Range Interpretation Comments VITAMIN B12 (BEAKER) (test code = 719 pg/mL 213-816 774) FOLATE (BEAKER) (test code = 362) 13.7 ng/mL >=7.0 TROPONIN [id number] 06:05:00 Test Item Value Reference Range Interpretation [...] H (test code = 2590) COMPREHENSIVE METABOLIC [id number] 05:44:00 Test Item Value Reference Range Interpretation [...] APPLICABLE FOR DIALYSIS PATIEN TS. Specimen moderately [id number] 05:38:00 Test Item Value Reference Range Interpretation Comments MAGNESIUM (BEAKER) (test code = 2.3 mg/dL 1.6-2.6 627) LACTIC ACID, [id number] 05:32:00 Test Item Value Reference Range Interpretation Comments LACTATE BLOOD VENOUS 4.1 mmol/L 0.5-2.2 H Specime n slightly (2) (BEAKER) (test hemolyzed code = 2872) Specimen moderately ictericTROPONIN [id number] 02:28:00 Test Item Value Reference Range Interpretation [...] disease, and persistent tachyarrhythmia.RAD, ABDOMEN/KUB, 1 VIEW [id number] 02:04:00REFERRING MD: ANIL SALVADOR Reason for exam:->NG tube placementFINAL REPORT RAD, ABDOMEN/KUB, 1 VIEW AP CLINICAL HISTORY: NG tube placement TECHNIQUE: RAD, ABDOMEN/KUB, 1 VIEW AP COMPARISON: None IMPRESSION:Nasogastric tube tip projects over the gastric body and the sidehole is distal to the GE junction, in satisfactory position.There is no evidence of free air or air-fluid levels. The bowel gas pattern is within normal limits. Signed: Efrain Navarrete MDReport Verified Date/Time: 10/28/2018 02:04:20 HROMBIN [id number] 01:58:00 Test Item Value Reference Range Interpretation [...] is 2.5-3.5 for patients wiht mechanical heart valves.CBC W/PLT COUNT & AUTO [id number] 01:45:00 Test Item Value Reference Range Interpretation [...] User comments: Slide comments:URINALYSIS W/ REFLEX URINE [id number] 01:36:00 Test Item Value Reference Range Interpretation [...] SOURCE(BEAKER) (test code = 2795) COMPREHENSIVE METABOLIC [id number] 01:16:00 Test Item Value Reference Range Interpretation [...] APPLICABLE FOR DIALYSIS PATIEN TS. Specimen moderately [id number] 01:15:00 Test Item Value Reference Range Interpretation Comments AMMONIA (BEAKER) (test code = 348) 69 mol/L 18-72 LACTIC ACID, [id number] 01:08:00 Test Item Value Reference Range Interpretation Comments LACTATE BLOOD VENOUS (2) (BEAKER) 3.2 mmol/L 0.5-2.2 H (test code = 2162) Specimen moderately [id number] 01:08:00 Test Item Value Reference Range Interpretation Comments MAGNESIUM (BEAKER) (test code = 1.1 mg/dL 1.6-2.6 L 627) RAD, CHEST, 1 VIEW, NON [id number] 00:52:00REFERRING MD: ANIL SALVADOR Reason for exam:->sepsisShould [...] large pleural effusion or pneumothorax. Cardiac silhouette ismildly prominent but magnified by the AP portable technique. No evidence of an acute osseous abnormality. Signed: Williams Bahena [facility] Verified Date/Time: 10/28/2018 00:52:42 Reading Location: [address] Reading Room ACTIN (SMOOTH MUSCLE) ANTIBODY, [id number] 08:28:00 Test Item Value Reference Range Interpretation Comments SCAN RESULT (test code = 5892852) [id number] 08:27:00 Test Item Value Reference Range Interpretation Comments SCAN RESULT (test code = 8246138) NILS TITER AND [id number] 09:55:00 Test Item Value Reference Range Interpretation Comments NILS TITER (BEAKER) (test code = :160 1541) NILS PATTERN (BEAKER) (test code = Speckled 1781) ANTI-NUCLEAR ANTIBODY (NILS)2018-10-05 09:54:00 Test Item Value Reference Range Interpretation Comments ANTI-NUCLEAR ANTIBODY (NILS) (BEAKER) Positive Negative A (test code = 418) Test performed by IFA method.[id number] 10:54:00 Test Item Value Reference Range Interpretation Comments FERRITIN (BEAKER) (test code = 361) 218 ng/mL 5-275 HEPATITIS A ANTIBODY, [id number] 10:18:00 Test Item Value Reference Range Interpretation Comments HEPATITIS A IGG ANTIBODY (BEAKER) Reactive Nonreactive A (test code = 2797) ALPHA FETOPROTEIN (AFP), TUMOR [id number] 10:14:00 Test Item Value Reference Range Interpretation Comments ALPHA-FETOPROTEIN (BEAKER) (test 3.5 ng/mL <10.0 code = 1094) HEPATITIS A ANTIBODY, [id number] 10:14:00 Test Item Value Reference Range Interpretation Comments HEPATITIS A IGM ANTIBODY (BEAKER) Nonreactive Nonreactive (test code = 498) HEPATITIS B CORE ANTIBODY, [id number] 10:14:00 Test Item Value Reference Range Interpretation Comments HEPATITIS B CORE TOTAL ANTIBODY Nonreactive Nonreactive (BEAKER) (test code = 497) HEPATITIS B SURFACE [id number] 09:42:00 Test Item Value Reference Range Interpretation Comments HEPATITIS B SURFACE ANTIBODY < mIU/mL <8.0 (BEAKER) (test code = 647) HEPATITIS B SURFACE [id number] 09:36:00 Test Item Value Reference Range Interpretation [...] 41 % 20-55 (test code = 2590) [id number]-1-[id number] 09:14:00 Test Item Value Reference Range Interpretation Comments ALPHA-1 ANTITRYPSIN (BEAKER) 159.30 mg/dL 90.00-200.00 (test code = 502) COMPREHENSIVE METABOLIC [id number] 09:10:00 Test Item Value Reference Range Interpretation [...] FOR DIALYSIS PATIEN TS. Specimen slightly ictericBILIRUBIN, [id number] 09:10:00 Test Item Value Reference Range Interpretation Comments BILIRUBIN DIRECT (BEAKER) (test 1.4 mg/dL 0.1-0.5 H code = 706) PROTHROMBIN [id number] 08:38:00 Test Item Value Reference Range Interpretation [...] mechanical heart valves.CBC W/PLT COUNT & AUTO [id number] 08:35:00 Test Item Value Reference Range Interpretation [...] 417) IMMATURE GRANULOCYTES-RELATIVE 1 % 0-1 PERCENT ([place]) (test code = 2801)"
[2022-01-24 11:04] LABS: Absolute Lymphocytes (CBC) 0.8 K/uL (0.7-4.9); Hematocrit 33.9 % (39.6-49.0); Lymphocytes % 8.7 % (15.3-44.8); MCV 72.1 fL (80-100); MPV 8.5 fL (7.6-11.3)
[2022-01-24 11:15] LABS: Albumin 2.5 g/dL (3.4-5.0); Bilirubin Direct 1.2 mg/dL (0-0.2); Bilirubin Total 3.2 mg/dL (0.2-1.0); Magnesium 1.6 mg/dL (1.8-2.4); Potassium 4.2 mmol/L (3.5-5.1); Protein, Total 6.5 g/dL (6.4-8.2); Protime INR 1.41
[2022-01-24 11:18] LABS: Troponin High Sensitivity 186.5 pg/mL (<58.9)
[2022-01-24 11:49] LABS: Anisocytosis 2+; Blood Morphology Comment NOTED (NOT SEEN); Hypochromasia 1+; Platelet Estimate ADEQ; White Blood Cell Scan OK (OK)
--- NOTE | 2022-01-24 11:49 | RAD REPORT ---
EXAM DESCRIPTION: RAD - Chest Single View - 01/24/2022 11:33 am CLINICAL HISTORY: ABDOMINAL DISTENTION COMPARISON: Chest Single View dated 06/21/2021; Chest Single View dated 05/10/2021; Chest Single View dated 03/29/2021; Chest Single View dated 10/05/2020 FINDINGS: Lines: None. Lungs: No evidence of edema or pneumonia. Pleural: No significant pleural effusions or pneumothorax. Cardiac: The heart size is within normal limits. Mediastinum: Within normal limits. Bones: No acute fractures. Other: None IMPRESSION: No acute cardiopulmonary disease.
[2022-01-24 11:50] LABS: Ovalocytes SLIGHT
--- NOTE | 2022-01-24 12:55 | RAD REPORT ---
EXAM DESCRIPTION: CT - Abdomen Pelvis W Contrast - 01/24/2022 12:41 pm CLINICAL HISTORY: abdominal pain, abdominal distension COMPARISON: Abdomen Pelvis W Contrast dated 12/24/2019 TECHNIQUE: Biphasic, helical CT imaging of the abdomen and pelvis was performed following 100 ml non -ionic IV contrast. No oral contrast was administered. All CT scans are performed using dose optimization technique as appropriate and may include automated exposure control or mA/KV adjustment according to patient size. FINDINGS: No suspicious findings in the lung bases. Liver is again noted to be grossly abnormal with a prominently lobulated capsule. Left lobe is promin ent relative to the right. In the central right lobe a 10 millimeter round low-density focus has not change from 20/20. No portal vein thrombus identified. Spleen and pancreas show no acute findings. Ga llbladder and biliary tree are also without suspicious finding. Gallbladder rogers are obscured by the adjacent ascites. Symmetric renal function is seen with no hydronephrosis or suspicious renal mass. No pyelonephritis o r acute parenchymal process. Urinary bladder is fully contracted limiting evaluation. No adrenal abno rmalities. No gastric dilatation or gastric wall thickening seen. No dilated small bowel loops. There are few sm all bowel loops that are prominent. A mild enteritis is possible though generally no primary GI proce ss suspected. Small to moderate amount of ascites is present in the peritoneal cavity similar to prior imaging. No free air or pneumatosis. Large dilated varices are present at the GE junction and around the distal e sophagus. These extend into the upper abdomen. No acute finding of the varices. No mass or bulky lym phadenopathy. Patient has had a prior hernia repair to the anterior abdominal wall. Clips are present from prior me sh placement. In the supraumbilical subcutaneous fat there is an 8 centimeter lobulated fluid collect ion. This hernia has a 2 centimeter neck in the midline. Findings are only fractionally larger than s een in 2020. All bowel remains within the peritoneal cavity. No suspicious bony findings. IMPRESSION: The patient has an 8 centimeter diameter ascites filled supraumbilical ventral hernia. N conor of the hernia is 2 cm. This is only slightly larger than 2020. All bowel loops remain within the peritoneal cavity. A few mildly prominent small bowel loops are pr esent. A mild enteritis is possible but generally no primary bowel process suspected. Advanced cirrhosis with mild to moderate ascites similar to prior imaging. No new liver lesion.
--- NOTE | 2022-01-24 13:11 | ER ---
[facility] Name: Tonny Cardona Age: 66 yrs Sex: Male : 1955 Arrival Date: 01/24/2022 Time: 10:[address] Private MD: Anil Tavera H Diagnosis: Alcoholic cirrhosis of liver with ascites;Dyspnea, unspecified Presentation: 01/24 10:12 Chief complaint: Patient states: "I had a hernia surgery about a year ago but this aa5 morning it looks like it popped out and there is some bruising on my stomach". Swelling noted to abdomen, pt reports hx of liver problems. Pt also reports diarrhea today. Coronavirus screen: diarrhea. Ebola Screen: Patient denies travel to an Ebola-affected area in the 21 days before illness onset. Initial Sepsis Screen: Does the patient meet any 2 criteria? No. Patient's initial sepsis screen is negative. Does the patient have a suspected source of infection? No. Patient's initial sepsis screen is negative. Risk Assessment: Do you want to hurt yourself or someone else? Patient reports no desire to harm self or others. Onset of symptoms was January 24, 2022. 10:12 Acuity: FAIZA 3 aa5 10:12 Method Of Arrival: Ambulatory aa5 Historical: - Allergies: 10:14 Ativan; aa5 - PMHx: 10:14 ADD/ADHD; Cirrhosis; Diabetes - NIDDM; Hypertension; psoriasis; aa5 - PSHx: 10:14 Hernia repair; aa5 - Immunization history:: Adult Immunizations unknown. - Social history:: Smoking status: Patient/guardian denies using tobacco, the patient reports quitting approximately 3 years ago. Screenin:49 Abuse screen: Denies threats or abuse. Denies injuries from another. Nutritional jl7 screening: No deficits noted. Tuberculosis screening: No symptoms or risk factors identified. Fall Risk IV access (20 points). Total Albrecht Fall Scale indicates No Risk (0-24 pts). Assessment: 10:49 General: Appears in no apparent distress. uncomfortable, Behavior is calm, cooperative, jl7 appropriate for age. Pain: Complains of pain in mid abdominal pain Pain currently is 9 out of 10 on a pain scale. Neuro: Level of Consciousness is awake, alert, obeys commands, Oriented to person, place, time, situation. Cardiovascular: Patient's skin is warm and dry. Respiratory: Airway is patent Respiratory effort is even, unlabored, Respiratory pattern is regular, symmetrical. GI: Abdomen is round distended, Bowel sounds present X 4 quads. Abd is soft and non tender X 4 quads. Reports diarrhea. Derm: Skin is pink, warm \\T\\ dry. 12:00 Reassessment: Patient appears in no apparent distress at this time. No changes from jl7 previously documented assessment. Patient and/or family updated on plan of care and expected duration. Pain level reassessed. Patient is alert, oriented x 3, equal unlabored respirations, skin warm/dry/pink. 13:00 Reassessment: Patient appears in no apparent distress at this time. No changes from jl7 previously documented assessment. Patient and/or family updated on plan of care and expected duration. Pain level reassessed. Patient is alert, oriented x 3, equal unlabored respirations, skin warm/dry/pink. 14:00 Reassessment: Patient appears in no apparent distress at this time. No changes from jl7 previously documented assessment. Patient and/or family updated on plan of care and expected duration. Pain level reassessed. Patient is alert, oriented x 3, equal unlabored respirations, skin warm/dry/pink. 15:00 Reassessment: Patient appears in no apparent distress at this time. No changes from jl7 previously documented assessment. Patient and/or family updated on plan of care and expected duration. Pain level reassessed. Patient is alert, oriented x 3, equal unlabored respirations, skin warm/dry/pink. Vital Signs: 10:12 BP 147 / 81; Pulse 76; Resp 20 S; Temp 97.1(TE); Pulse Ox 100% on R/A; Weight 113.4 kg aa5 (R); Height 5 ft. 6 in. (167.64 cm) (R); 10:49 BP 121 / 67; Pulse 77; Resp 15; Pulse Ox 99% ; Pain 9/10; jl7 12:00 BP 139 / 75; Pulse 70; Resp 16; Pulse Ox 100% ; jl7 13:30 BP 136 / 65; Pulse 70; Resp 19; Pulse Ox 100% ; jl7 14:51 BP 135 / 87; Pulse 73; Resp 20; Pulse Ox 100% ; jl7 16:00 BP 160 / 87; Pulse 75; Resp 16; Pulse Ox 100% ; jl7 10:12 Body Mass Index 40.35 (113.40 kg, 167.64 cm) aa5 ED Course: 10:03 Patient arrived in ED. as 10:04 Anil Tavera MD is Private Physician. as 10:04 Milan Mcbride PA is PHCP. cp 10:04 Irving Chacko MD is Attending Physician. cp 10:10 Arm band placed on. aa5 10:14 Triage completed. aa5 10:30 Denise Patterson, DIANE is Primary Nurse. jl7 10:41 Bed in low position. Call light in reach. Side rails up X 1. Door closed. Noise mb7 minimized. Client placed on continuous cardiac and pulse oximetry monitoring. NIBP monitoring applied. groundwater monitoring technician on. 10:41 EKG done, by ED staff, reviewed by Milan BRITO. mb7 10:49 Initial lab(s) drawn, by de, sent to lab. Inserted saline lock: 20 gauge in left jl7 antecubital area, using aseptic technique. Blood collected. 11:34 XRAY Chest (1 view) In Process Unspecified. EDMS 12:43 CT Abd/Pelvis - IV Contrast Only In Process Unspecified. EDMS 13:09 Andrae Renteria is Hospitalizing Provider. cp 13:55 SARS RAPID Sent. kc6 19:11 Primary Nurse role handed off by Denise Patterson, DIANE mw2 19:30 No provider procedures requiring assistance completed. Patient admitted, IV remains in jl7 place. Administered Medications: 14:12 Drug: Aspirin 325 mg Route: PO; jl7 19:36 Follow up: Response: No adverse reaction jl7 Medication: 10:49 VIS not applicable for this client. jl7 Outcome: 13:11 Decision to Hospitalize by Provider. cp 19:30 Admitted to ER Hold. Please see [facility] for further documentation. jl7 19:30 Condition: stable 19:30 Discharge instructions given to patient, Instructed on the need for admit, Demonstrated understanding of instructions. 22:09 Patient left the ED. jb4 Signatures: Dispatcher [employer] EDMS Cheyenne Villela Audri, RN RN aa5 Milan Mcbride PA PA Jase Wolfe RN RN jb4 Denise Patterson RN RN jl7 Keren Akbar mw2 Marta Denise mb7 Yee Buchanan kc6
--- NOTE | 2022-01-24 13:11 | EDPHYS ---
Physician Documentation [facility] Name: Tonny Cardona Age: 66 yrs Sex: Male : 1955 Arrival Date: 01/24/2022 Time: 10:[address] Private MD: Anil Tavera H ED Physician Irving Chacko HPI: 01/24 10:25 This 66 yrs old Male presents to ER via Ambulatory with complaints of cp Abdominal Pain - bruising. 10:25 The patient presents with abdominal pain mid abdomen. cp 10:25 Onset: The symptoms/episode began/occurred gradually, and became worse this morning. cp 10:25 The symptoms do not radiate. Associated signs and symptoms: Pertinent positives: cp diarrhea, Pertinent negatives: anorexia, blood in stools, chest pain, constipation, dysuria, fever, testicular pain, vomiting. The symptoms are described as constant. Modifying factors: the symptoms are aggravated by pressure. Severity of pain: in the emergency department the pain is unchanged despite home interventions. Historical: - Allergies: 10:14 Ativan; aa5 - PMHx: 10:14 ADD/ADHD; Cirrhosis; Diabetes - NIDDM; Hypertension; psoriasis; aa5 - PSHx: 10:14 Hernia repair; aa5 - Immunization history:: Adult Immunizations unknown. - Social history:: Smoking status: Patient/guardian denies using tobacco, the patient reports quitting approximately 3 years ago. ROS: 10:30 Constitutional: Negative for body aches, chills, fever, poor PO intake. cp 10:30 Eyes: Negative for injury, pain, redness, and discharge. cp 10:30 Respiratory: Positive for shortness of breath, Negative for cough, wheezing. 10:30 Abdomen/GI: Positive for abdominal pain, diarrhea, abdominal distension, Negative for vomiting, black/tarry stool, rectal bleeding. 10:30 Cardiovascular: Negative for chest pain, palpitations. cp 10:30 Back: Negative for pain at rest, pain with movement. cp 10:30 : Negative for urinary symptoms, testicular pain 10:30 Neuro: Negative for altered mental status, headache, weakness. 10:30 All other systems are negative. Exam: 10:35 Constitutional: The patient appears in no acute distress, alert, awake, cp non-diaphoretic, non-toxic, well developed, well nourished, obese. 10:35 Head/Face: Normocephalic, atraumatic. cp 10:35 Eyes: Periorbital structures: appear normal, Conjunctiva: normal, no exudate, no cp injection, Sclera: no appreciated abnormality, Lids and lashes: appear normal, bilaterally. 10:35 ENT: External ear(s): are unremarkable, Nose: is normal, Mouth: Lips: moist, Oral mucosa: moist, Posterior pharynx: Airway: no evidence of obstruction, patent. 10:35 Neck: ROM/movement: is normal, is supple, without pain, no range of motions limitations. 10:35 Chest/axilla: Inspection: normal. 10:35 Cardiovascular: Rate: normal, Rhythm: regular, Edema: ankle edema, that is mild, JVD: is not appreciated. 10:35 Respiratory: the patient does not display signs of respiratory distress, Respirations: labored breathing, is not present, intercostal retractions, are absent, shallow respirations, are not present, Breath sounds: decreased breath sounds, that are mild, are located in both bases, stridor, is not appreciated, wheezing: is not appreciated. 10:35 Abdomen/GI: Inspection: obese Palpation: soft, in all quadrants, mild abdominal tenderness, in the mid abdomen, rebound tenderness, is not appreciated, Hernia: noted in the paraumbilical area, tenderness, that is mild. 10:35 Back: CVA tenderness, is absent. 10:35 Skin: cellulitis, is not appreciated, no rash present. 10:35 Neuro: Orientation: to person, place \T\ time. Mentation: is normal, Motor: moves all fours, strength is normal, Sensation: is normal. 10:45 ECG was reviewed by the Attending Physician. cp Vital Signs: 10:12 BP 147 / 81; Pulse 76; Resp 20 S; Temp 97.1(TE); Pulse Ox 100% on R/A; Weight 113.4 kg aa5 (R); Height 5 ft. 6 in. (167.64 cm) (R); 10:49 BP 121 / 67; Pulse 77; Resp 15; Pulse Ox 99% ; Pain 9/10; jl7 12:00 BP 139 / 75; Pulse 70; Resp 16; Pulse Ox 100% ; jl7 13:30 BP 136 / 65; Pulse 70; Resp 19; Pulse Ox 100% ; jl7 14:51 BP 135 / 87; Pulse 73; Resp 20; Pulse Ox 100% ; jl7 16:00 BP 160 / 87; Pulse 75; Resp 16; Pulse Ox 100% ; jl7 10:12 Body Mass Index 40.35 (113.40 kg, 167.64 cm) aa5 MDM: 10:16 Patient medically screened. cp 11:00 Differential diagnosis: bowel obstruction, pancreatitis, Peptic Ulcer Disease, Perf. cp Duodenal Ulcer, Perf. Gastric Ulcer, Ureterolithiasis, urinary tract infection. 13:05 Data reviewed: vital signs, nurses notes, lab test result(s), EKG, radiologic studies, cp CT scan, plain films. 13:05 Test interpretation: by ED physician or midlevel provider: ECG, plain radiologic cp studies. Counseling: I had a detailed discussion with the patient and/or guardian regarding: the historical points, exam findings, and any diagnostic results supporting the discharge/admit diagnosis, lab results, radiology results, the need for further work-up and treatment in the hospital. 01/24 10:25 Order name: Basic Metabolic Panel; Complete Time: 11: 01/24 11:26 Interpretation: Normal except: GLUC 149; BUN 6; CA 8.3. 01/24 10:25 Order name: CBC with Diff; Complete Time: 11:51 01/24 11:26 Interpretation: Normal except: HGB 10.5; HCT 33.9; MCV 72.1; MCH 22.3; MCHC 31.0; PLT cp 117; RDW 31.8; ELFEGO% 79.5; LYM% 8.7. 01/24 10:25 Order name: LFT's; Complete Time: 11: 01/24 11:41 Interpretation: Normal except: ALK 132; BILIT 3.2; BILID 1.2; ALB 2.5; GLOB 4.0; A/G cp 0.6. 01/24 10:25 Order name: Magnesium; Complete Time: 11: cp 01/24 11:42 Interpretation: Abnormal: MG 1.6. 01/24 10:25 Order name: NT PRO-BNP; Complete Time: 11: 01/24 11:52 Interpretation: Reviewed. 01/24 10:25 Order name: PT-INR; Complete Time: 11: cp 01/24 11:42 Interpretation: Abnormal: PT 15.6; INR <p>1.41</p>. cp 01/24 10:25 Order name: Troponin HS; Complete Time: 11:26 cp 01/24 11:27 Interpretation: Abnormal: Troponin HS 186.5. cp 01/24 10:25 Order name: Ptt, Activated; Complete Time: 11:26 cp 01/24 11:42 Interpretation: Within normal limits: PTT 31.5. cp 01/24 10:25 Order name: Lipase; Complete Time: 11:26 cp 01/24 11:50 Order name: CBC Smear Scan; Complete Time: 11:51 EDMS 01/24 13:32 Order name: SARS RAPID bd 01/24 14:16 Order name: Urinalysis EDNC 01/24 14:16 Order name: Basic Metabolic Panel EDNC 01/24 14:16 Order name: Basic Metabolic Panel EDNC 01/24 10:25 Order name: XRAY Chest (1 view); Complete Time: 11:51 01/24 11:51 Interpretation: Report review. 01/24 10:25 Order name: EKG; Complete Time: 10:26 cp 01/24 10:25 Order name: Cardiac monitoring; Complete Time: 10:41 cp 01/24 11:28 Order name: CT Abd/Pelvis - IV Contrast Only; Complete Time: 12:58 cp 01/24 13:18 Order name: Diet Heart Healthy; Complete Time: 13:18 iw 01/24 14:11 Order name: Paracentesis Proc Guidance EDNC 01/24 14:16 Order name: 60g Consistent Carbohydrate (ADA 1800/2000) EDNC 01/24 14:16 Order name: CBC with Automated Diff EDMS 01/24 14:16 Order name: CBC with Automated Diff EDMS 01/24 14:16 Order name: Magnesium EDMS 01/24 14:16 Order name: Magnesium EDMS 01/24 14:16 Order name: Phosphorus EDMS 01/24 14:16 Order name: Phosphorus EDMS 01/24 17:39 Order name: Troponin High Sensitivity EDNC 01/24 19:11 Order name: Glucose, Ancillary Testing EDNC 01/24 10:25 Order name: EKG - Nurse/Tech; Complete Time: 10:41 cp 01/24 10:25 Order name: IV Saline Lock; Complete Time: 10:49 cp 01/24 10:25 Order name: Labs collected and sent; Complete Time: 10:49 cp 01/24 10:25 Order name: O2 Per Protocol; Complete Time: : cp 01/24 10:25 Order name: O2 Sat Monitoring; Complete Time: :49 cp EC:45 Rate is 69 beats/min. Rhythm is regular. [place] interval is normal. QRS interval is normal. cp QT interval is normal. T waves are Inverted in lead aVR. Interpreted by me. Reviewed by me. Administered Medications: 14:12 Drug: Aspirin 325 mg Route: PO; jl7 19:36 Follow up: Response: No adverse reaction jl7 Disposition Summary: 01/24/22 13:11 Hospitalization Ordered Hospitalization Status: Observation cp Provider: Andrae Renteria cp Condition: Stable cp Problem: new cp Symptoms: have improved cp Bed/Room Type: Standard cp Location: Telemetry/MedSurg (observation)(01/24/22 20:16) Room Assignment: [facility](01/24/22 20:16) Diagnosis - Alcoholic cirrhosis of liver with ascites cp - Dyspnea, unspecified cp Forms: - Medication Reconciliation Form cp - SBAR form cp Addendum: 01/27/2022 00:00 Co-signature as Attending Physician, Irving Chacko MD I was immediately available on-site r n in the Emergency Department for consultation in the care of the patient.. Signatures: Dispatcher [employer] EDNC Alvina Woody RN RN mw Nieto, Roman, MD MD rn Calderon, Audri, RN RN aa5 Milan Mcbride PA PA Denise Martin RN RN jl7 Corrections: (The following items were deleted from the chart) 01/24 15:59 13:11 Telemetry/MedSurg (observation) cp jl7 15:59 13:11 cp jl7 20:16 15:59 [facility] ER HOLD jl7 20:16 15:59 ERHOLD- jl7
[2022-01-24] MEDS ORDERED: ACETAMINOPHEN 500 MG TAB PO PRN (14:09)
[2022-01-24] MEDS ORDERED: HYDROCODONE/APAP 5/325 MG TAB PO PRN (14:09)
[2022-01-24] MEDS ORDERED: ONDANSETRON 4 MG/2 ML VIAL IV PRN (14:09)
--- NOTE | 2022-01-24 14:17 | P.HP ---
Certification for Inpatient Patient admitted to: Observation With expected LOS: <2 Midnights Patient will require the following post-hospital care: None Practitioner: I am a practitioner with admitting privileges, knowledge of patient current condition, hospital course, and medical plan of care. Services: Services provided to patient in accordance with Admission requirements found in Title 42 Section 412.3 of the Code of Federal Regulations Patient History Date of Service: 01/24/22 Reason for admission: Abdominal pain and distention. History of Present Illness: Patient is a 66-year-old male with a past medical history significant for alcoholic liver cirrhosis, DM 2, hypertension, psoriasis who presents with complaint of abdominal pain and distention. Patient reported that symptoms started yesterday. Patient rated pain as 8/10 in severity and described pain as aching in quality. Patient reported associated signs of" of nausea, vomiting, diarrhea and, shortness of breath with exertion. Patient denies any other signs or symptoms. Symptoms are aggravated or relieved by nothing. Patient decided to present to the hospital due to worsening symptoms. Allergies lorazepam [From Ativan] Allergy (Severe, Verified 10/04/21 13:11) Shortness of breath Home Medications: Carvedilol [Coreg] 3.125 mg PO BIDWM 01/11/20 Folic Acid 1 mg PO DAILY 01/11/20 Pantoprazole [Protonix Tab*] 40 mg PO DAILY 01/11/20 Spironolactone 25 mg PO DAILY 01/11/20 Furosemide [Lasix*] 40 mg PO DAILY 09/18/20 Insulin -Regular Human [Novolin -R*] See Protocol SQ ACHS 09/18/20 Trazodone [Desyrel*] 50 mg PO BEDTIME 09/18/20 Fluticasone Propionate [Flovent Diskus] 50 mcg BONNY DAILY 06/21/21 Lisinopril [Zestril] 20 mg PO DAILY 06/21/21 Metformin ER [Glucophage ER*] 500 mg PO BID 06/21/21 hydrOXYzine HCL [Atarax] 50 mg PO BID 06/21/21 Lactulose [Cephulac*] 30 ml PO TID 30 Days #1800 ucup 06/23/21 Rifaximin [Xifaxan] 550 mg PO BID #180 tablet 06/23/21 - Past Medical/Surgical History Diabetic: Yes -: DM II -: HTN -: CHF -: Liver cirrhosis, -: Hyperlipidemia -: Obesity -: GERD -: Gastric varices -: H pylori gastritis -: Hernia repair Psychosocial/ Personal History: Patient has significant other. - Family History Father -: Diabetes Mother -: Liver disease - Social History Smoking Status: Former smoker Alcohol use: No CD- Drugs: No Caffeine use: Yes Place of Residence: Home Review of Systems General: Unremarkable Eyes: Unremarkable ENT: Unremarkable Respiratory: Shortness of Breath Cardiovascular: Unremarkable Gastrointestinal: Nausea, Vomiting, Abdominal Pain, Diarrhea, Distention Genitourinary: Unremarkable Musculoskeletal: Unremarkable Integumentary: Bruising Neurological: Unremarkable Lymphatics: Unremarkable Physical Examination - Physical Exam General: Alert, Oriented x3, Cooperative HEENT: Atraumatic, Normocephalic, PERRLA Neck: Supple, 2+ carotid pulse no bruit, JVD not distended Respiratory: Clear to auscultation bilaterally, Normal air movement Cardiovascular: No edema, Normal pulses Capillary refill: <2 Seconds Gastrointestinal: Soft and benign, Tenderness Musculoskeletal: No clubbing, No swelling, No contractures Integumentary: No rashes, No breakdown, No significant lesion Neurological: Normal tone, Normal reflexes 2+ Lymphatics: No axilla or inguinal lymphadenopathy - Studies Laboratory Data (last 24 hrs) 01/24/22 10:40: PT 15.6 H, INR 1.41, APTT 31.5 01/24/22 10:40: WBC 9.40, Hgb 10.5 L, Hct 33.9 L, Plt Count 117 L 01/24/22 10:40: Sodium 137, Potassium 4.2, BUN 6 L, Creatinine 0.72, Glucose 149 H, Magnesium 1.6 L D, Total Bilirubin 3.2 H, AST 29, ALT 26, Alkaline Phosphatase 132 H, Lipase 94 Assessment and Plan - Plan --Ascites. Noted on imaging. Interventional radiology consulted for paracentesis. Continue supportive care. --Decompensated liver cirrhosis. 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 Continue home medications. --Acute pain. We will manage pain with current pain medication regimen. --DM2. BS monitor with sliding scale insulin. --Hypertension. Poorly controlled. Continue home medications and hydralazine as needed. --Psoriasis. Continue home medication. --Nausea and vomiting. Antiemetics on board. Continue supportive care. --Diarrhea. Patient reported that he has had 6 episodes of diarrhea today. We will get some stool studies -- ADHD/ADD. Stable. Continue supportive care. --Class III obesity. Likely secondary to excess calories intake. Patient counseled on weight reduction, diet and exercise therapy. --Thrombocytopenia. Secondary to liver cirrhosis. Continue supportive care. --Anemia of chronic disease. H&H stable. We will continue to monitor renal functions and transfuse if less than 7. --GERD. Continue Protonix. --Elevated troponin. Will trend troponin levels. Cardiology consulted. Echocardiogram pending. Will await further recommendation from final inspector motorcyles. --DVT prophylaxis with SCDs Discharge Plan: Home Plan to discharge in: Greater than 2 days - Advance Directives Does patient have a Living Will: No Does patient have a Durable POA for Healthcare: No - Code Status/Comfort Care Code Status Assessed: Yes Code Status: Full Code Physician Review: Patient Assessed, Agree with Above Assessment and Plan Critical Care: No
[2022-01-24 14:21] LABS: SARS-CoV-2 Antigen Rapid Res Negative (Negative)
[2022-01-24 16:15] VITALS: BMI 40.3
[2022-01-24] MEDS ORDERED: HYDRALAZINE HCL 20 MG/ML VIAL IV PRN (16:23)
[2022-01-24] MEDS: INSULIN -REGULAR HUMAN 50 UNIT/0.5 ML ML SQ SCH ×2 (16:30→21:00)
[2022-01-24] MEDS: carvediloL 3.125 MG TAB PO SCH (17:00)
[2022-01-24] MEDS: FUROSEMIDE 40 MG/4 ML VIAL IV SCH (17:00)
[2022-01-24] MEDS ORDERED: FUROSEMIDE 40 MG/4 ML VIAL ONE (19:29)
[2022-01-24] MEDS ORDERED: HOME MED 1 EA UNK (Hydroxyzine Hcl [Atarax] 50 MG Tablet) PO SCH (21:00)
[2022-01-24] MEDS: Rifaximin 550 MG Tab PO SCH (21:00)
[2022-01-24] MEDS ORDERED: hydrOXYzine HCL 25 MG TAB PO SCH (21:00)
[2022-01-24] MEDS: LACTULOSE 20 GM/30 ML UCUP PO SCH (22:39)
[2022-01-24] MEDS: TRAZODONE 50 MG TABLET PO SCH (22:39)
[2022-01-25 03:41] LABS: Urine Bilirubin Negative (Negative); Urine Blood Negative (Negative); Urine Clarity Clear (Clear); Urine Color Yellow (Yellow); Urine Glucose Negative (Negative); Urine Protein Negative (Negative); Urine pH 5.5 (5.0-7.0)
[2022-01-25 05:59] LABS: Absolute Lymphocytes (CBC) 0.6 K/uL (0.7-4.9); Hematocrit 29.3 % (39.6-49.0); Lymphocytes % 9.4 % (15.3-44.8); MCV 72.3 fL (80-100); MPV 8.7 fL (7.6-11.3); RBC Red Blood Cell Count 4.05 M/uL (4.33-5.43)
--- NOTE | 2022-01-25 06:07 | P.PN ---
Date of Service: 01/25/22
[2022-01-25 06:09] LABS: Albumin 2.2 g/dL (3.4-5.0); Bilirubin Direct 1.1 mg/dL (0-0.2); Bilirubin Total 2.4 mg/dL (0.2-1.0); Magnesium 1.6 mg/dL (1.8-2.4); Phosphorus 2.3 mg/dL (2.5-4.9); Potassium 3.8 mmol/L (3.5-5.1); Protein, Total 5.4 g/dL (6.4-8.2)
[2022-01-25] MEDS: INSULIN -REGULAR HUMAN 50 UNIT/0.5 ML ML SQ SCH ×4 (07:30→21:00)
--- NOTE | 2022-01-25 08:15 | EKG ---
Test Date: 2022-01-24 Test Time: 10:40:09 First Line Production Supervisor: MB MEASUREMENT RESULTS: Intervals: Rate: 69 ND: 160 QRSD: 80 QT: 422 QTc: 452 [place]: P: 40 ND: 160 QRS: -65 T: 7 INTERPRETIVE STATEMENTS: Normal sinus rhythm Left anterior fascicular block Possible Anterior infarct, age undetermined Abnormal ECG Compared to ECG 09/21/2020 13:16:24 Left anterior fascicular block now present Left-axis deviation no longer present Myocardial infarct finding still present Electronically Signed On 01-25-22 08:12:14 CDT by Nemesio Rachel
[2022-01-25] MEDS: PANTOPRAZOLE 40MG TABLET PO SCH (08:17)
[2022-01-25] MEDS: SPIRONOLACTONE 25 MG TABLET PO SCH (08:18)
[2022-01-25] MEDS: lisinopriL 20 MG TAB PO SCH (08:18)
[2022-01-25] MEDS: POTASS/SODIUM PHOSPHATE 1 PKT POWD.PACK PO SCH ×3 (08:19→11:25)
[2022-01-25] MEDS: carvediloL 3.125 MG TAB PO SCH ×2 (08:19→17:23)
[2022-01-25] MEDS: FOLIC ACID 1 MG TABLET PO SCH (08:19)
[2022-01-25] MEDS: FUROSEMIDE 40 MG/4 ML VIAL IV SCH (08:20)
[2022-01-25] MEDS: LACTULOSE 20 GM/30 ML UCUP PO SCH ×3 (08:20→21:14)
[2022-01-25] MEDS: HOME MED 1 EA UNK (Fluticasone Propionate [Flovent Diskus] 50 MCG Blst.W.Dev) NAS SCH (08:20)
[2022-01-25] MEDS ORDERED: MAGNESIUM SULFATE 1 gm IVPB 1 GM/100 ML BAG IV ONE (09:00)
[2022-01-25] MEDS ORDERED: POTASSIUM CL SA 10 MEQ TAB PO ONE (09:00)
[2022-01-25] MEDS: Rifaximin 550 MG Tab PO SCH ×2 (09:00→21:00)
--- NOTE | 2022-01-25 10:05 | RAD REPORT ---
EXAM DESCRIPTION: US - Paracentesis Proc Guidance - 01/25/2022 10:00 am CLINICAL HISTORY: Liver disease with ascites FINDINGS: The risks, benefits and alternatives to the procedure were explained to the patient and in formed consent obtained. The skin and subcutaneous tissues were anesthetized with Lidocaine. Under sonographic guidance an 8 F rench catheter was placed into the right lower quadrant. 1 liter of yellow fluid removed. Fluid sent to the lab. The patient experienced no immediate complication. IMPRESSION: Paracentesis
[2022-01-25 10:11] LABS: Anisocytosis 3+; Blood Morphology Comment NOTED (NOT SEEN); Hypochromasia 1+; Platelet Estimate DECR; Poikilocytosis SLIGHT
[2022-01-25] MEDS ORDERED: FUROSEMIDE 40 MG/4 ML VIAL IV ONE (12:16)
[2022-01-25 12:22] LABS: Appearance SLT. TURBID (CLEAR); Body Fluid Source PERITONEAL; Body Fluid WBC 8 /mm^3; Color of fluid Yellow (COLORLESS)
--- NOTE | 2022-01-25 14:25 | P.PN ---
Subjective Date of Service: 01/25/22 Primary Care Provider: Sumeet Alcantar Chief Complaint: Abdominal pain and distention. Subjective: No new changes Patient with a hisotry of treated hepatitis and cirrhosis. He also has diabetes with Neuropathy The patietn presented with ascitis. He is having sob on exertion and discomfort Review of Systems 10-point ROS is otherwise unremarkable Gastrointestinal: Distention Physical Examination - Vital Signs Temperature: 98.5 F Blood Pressure: 115/60 Pulse: 69 Respirations: 18 Pulse Ox (%): 98 - Physical Exam General: Alert, In no apparent distress HEENT: Atraumatic, PERRLA, EOMI Neck: Supple, JVD not distended Respiratory: Clear to auscultation bilaterally, Normal air movement Cardiovascular: Regular rate/rhythm, Normal S1 S2 Gastrointestinal: Normal bowel sounds, No tenderness, Distended Musculoskeletal: No tenderness Integumentary: No rashes Neurological: Normal speech, Normal tone, Normal affect Lymphatics: No axilla or inguinal lymphadenopathy Assessment And Plan - Current Problems (Diagnosis) (1) Ascites of liver Current Visit: Yes Status: Acute Plan: He had 1 lt of fluid drained. Still uncomfortable. Will increase his lasix. May consider a bedside paracentsis (2) Diabetes mellitus with neuropathy Current Visit: Yes Status: Acute Plan: Will restart his medication and adjust as necessary Qualifiers: Diabetes mellitus type: type 2 Discharge Plan: Home Plan to discharge in: Greater than 2 days - Code Status/Comfort Care Code Status Assessed: No Physician Review: Patient Assessed, Agree with Above Assessment and Plan Critical Care: No Time Spent Managing PTS Care (In Minutes): 20
[2022-01-25] MEDS: METFORMIN ER 500 MG TAB PO SCH (17:23)
[2022-01-25] MEDS: TRAZODONE 50 MG TABLET PO SCH (21:16)
[2022-01-26 06:05] LABS: Magnesium 1.7 mg/dL (1.8-2.4); Phosphorus 1.9 mg/dL (2.5-4.9); Potassium 3.8 mmol/L (3.5-5.1)
[2022-01-26] MEDS: INSULIN -REGULAR HUMAN 50 UNIT/0.5 ML ML SQ SCH ×4 (07:30→20:12)
[2022-01-26] MEDS: HOME MED 1 EA UNK (Fluticasone Propionate [Flovent Diskus] 50 MCG Blst.W.Dev) NAS SCH (09:00)
[2022-01-26] MEDS ORDERED: POTASS/SODIUM PHOSPHATE 1 PKT POWD.PACK PO SCH (09:00)
[2022-01-26] MEDS ORDERED: POTASSIUM CL SA 10 MEQ TAB PO ONE (09:00)
[2022-01-26] MEDS ORDERED: MAGNESIUM SULFATE 1 gm IVPB 1 GM/100 ML BAG IV ONE (09:00)
[2022-01-26] MEDS: FOLIC ACID 1 MG TABLET PO SCH (09:30)
[2022-01-26] MEDS: FUROSEMIDE 40 MG/4 ML VIAL IV SCH (09:30)
[2022-01-26] MEDS: LACTULOSE 20 GM/30 ML UCUP PO SCH ×3 (09:30→20:11)
[2022-01-26] MEDS: SPIRONOLACTONE 25 MG TABLET PO SCH (09:30)
[2022-01-26] MEDS: METFORMIN ER 500 MG TAB PO SCH ×2 (09:30→16:58)
[2022-01-26] MEDS: lisinopriL 20 MG TAB PO SCH (09:31)
[2022-01-26] MEDS: PANTOPRAZOLE 40MG TABLET PO SCH (09:31)
[2022-01-26] MEDS: carvediloL 3.125 MG TAB PO SCH ×2 (09:31→16:58)
[2022-01-26] MEDS: Rifaximin 550 MG Tab PO SCH ×2 (09:31→20:11)
--- NOTE | 2022-01-26 12:56 | P.PN ---
Subjective Date of Service: 01/26/22 Primary Care Provider: Sumeet Alcantar Chief Complaint: Abdominal pain and distention. Subjective: No new changes Patient with a hisotry of treated hepatitis and cirrhosis. He also has diabetes with Neuropathy The patietn presented with ascitis. He is having sob on exertion and discomfort Review of Systems 10-point ROS is otherwise unremarkable Gastrointestinal: Distention Physical Examination - Vital Signs Temperature: 98.4 F Blood Pressure: 124/59 Pulse: 72 Respirations: 18 Pulse Ox (%): 96 - Physical Exam General: Alert, In no apparent distress HEENT: Atraumatic, PERRLA, EOMI Neck: Supple, JVD not distended Respiratory: Clear to auscultation bilaterally, Normal air movement Cardiovascular: Regular rate/rhythm, Normal S1 S2 Gastrointestinal: No tenderness, Distended (shifting dullness noted) Musculoskeletal: No tenderness Integumentary: No rashes Neurological: Normal speech, Normal tone, Normal affect Lymphatics: No axilla or inguinal lymphadenopathy - Studies Microbiology Data (last 24 hrs): 01/25/22 02:17 Stool Fecal Leukocyte Stain - Final Assessment And Plan - Current Problems (Diagnosis) (1) Ascites of liver Current Visit: Yes Status: Acute Plan: He had 1 lt of fluid drained. Still uncomfortable. Will increase his lasix. May consider a bedside paracentsis 01/26/22 Patient expresses his discomfort. Will plan on a bedside paracentesis this ev ening (2) Diabetes mellitus with neuropathy Current Visit: Yes Status: Acute Plan: Will restart his medication and adjust as necessary Qualifiers: Diabetes mellitus type: type 2 Discharge Plan: Home Plan to discharge in: 24 Hours - Code Status/Comfort Care Code Status Assessed: No Physician Review: Patient Assessed, Agree with Above Assessment and Plan Critical Care: No Time Spent Managing PTS Care (In Minutes): 30
[2022-01-26] MEDS ORDERED: LIDOCAINE 1% MPF 5 ML VIAL IM ONE (17:20)
[2022-01-26] MEDS ORDERED: HYDROMORPHONE HCL 0.5 MG/0.5 ML INJ IV PRN (17:44)
--- NOTE | 2022-01-26 17:46 | P.OP ---
Date of Service: 01/26/22 Findings and Operative Technique Bedside abdominal paracentesis performed After explaining the procedure and obtaining consent from the patient. Abdomen was prepped and draped. Was able to advance the catheter. however was not able to draw any fluid. did not connect to the vaccum bottles. Will consult surgery for the drainage.
[2022-01-26] MEDS ORDERED: ALBUMIN HUM 5% 250 ML IV ONE (18:00)
[2022-01-26] MEDS: TRAZODONE 50 MG TABLET PO SCH (20:11)
--- NOTE | 2022-01-26 22:06 | CON ---
Date of Consultation: 01/25/[address] Chacko. Reason For Consultation: Elevated troponin. History Of Present Illness: Mr. Cardona is 66, has a history of cirrhosis ADD, diabetes, hypertension, and psoriasis, came in with mid-epigastric abdominal pain, negative chest x-ray. EKG showed left ant erior hemiblock. CT showed ascites and cirrhosis. He just had paracentesis before I saw him. His h emoglobin was 9. His troponin was 148. He denied any chest pain, nausea, vomiting, diaphoresis, PN D, orthopnea, pedal edema, palpitations, or syncope. Past Medical History: As stated above. Review of Systems: Negative. Social History: Negative. Family History: Noncontributory. Medications At Home: Include aspirin, Lasix, lisinopril, Aldactone, carvedilol, inhalers, metformin, and insulin. Allergies: HE IS ALLERGIC TO LORAZEPAM. Physical Examination: Vital Signs: Stable. General: He is pleasant, in sinus rhythm, afebrile, no acute distress. HEENT: Negative. Neck: Supple with no bruit. Chest: Clear. Cardiac: Revealed a regular rhythm and rate. No murmurs, gallops, or rubs. Abdomen: Obese. Positive ascites. Extremities: Revealed no clubbing, cyanosis. He had trace edema. Diagnostic Data: As stated earlier. Impression And Plan: 1.Elevated troponin secondary to demand ischemia from anemia and ascites. I doubt acute coronary sy ndrome. Echocardiogram is pending. 2.Anemia. 3.Cirrhosis with ascites, status post thoracentesis. 4.Left anterior hemiblock. 5.Chronic obstructive pulmonary disease, on inhalers. 6.Diabetes, on metformin and insulin. 7.Hypertension, on lisinopril, Coreg, Lasix, and Aldactone. 8.Attention deficit disorder. 9.Psoriasis. We will see what the echocardiogram shows before making further decisions. NB/MODL Voice ID: [id number] Report ID: [id number]
--- NOTE | 2022-01-27 02:56 | PN ---
Date of Progress Note: 01/26/2022 Mr. Cardona has a history of ADD, cirrhosis, diabetes, hypertension, and psoriasis. Had thoracentesis y esterday and the reason I saw him initially was elevated troponin. He is on lisinopril, Lasix, Aldac tone, Coreg, inhalers, metformin, and insulin. His troponin was 148. Echocardiogram was ordered to rule out wall motion abnormality and was perfectly normal without any wall motion abnormality or effu johann. I think the troponin is secondary to demand ischemia from his other medical issue, especially cirrhosis. I will sign off his case for now. EDDI/MODL Voice ID: [id number] Report ID: [id number]
[2022-01-27 06:22] LABS: Absolute Lymphocytes (CBC) 1.4 K/uL (0.7-4.9); Hematocrit 31.1 % (39.6-49.0); Lymphocytes % 30.9 % (15.3-44.8); MCV 73.3 fL (80-100); MPV 8.3 fL (7.6-11.3); RBC Red Blood Cell Count 4.25 M/uL (4.33-5.43)
[2022-01-27 06:58] LABS: Albumin 2.1 g/dL (3.4-5.0); Bilirubin Total 1.3 mg/dL (0.2-1.0); Phosphorus 2.1 mg/dL (2.5-4.9); Potassium 3.9 mmol/L (3.5-5.1); Protein, Total 5.7 g/dL (6.4-8.2)
[2022-01-27] MEDS: INSULIN -REGULAR HUMAN 50 UNIT/0.5 ML ML SQ SCH ×3 (07:30→16:10)
[2022-01-27 07:34] LABS: Anisocytosis 3+; Blood Morphology Comment NOTED (NOT SEEN); Hypochromasia 1+; Platelet Estimate DECR; Poikilocytosis 1+
--- NOTE | 2022-01-27 07:36 | ECHO ---
HEIGHT: 5 ft 6 in WEIGHT: 250 lb 0 oz DATE OF STUDY: 01/25/[address]: Zachary Santiago 2-DIMENSIONAL: YES M.MODE: YES DOPPLER: YES COLOR FLOW: YES TDS: YES PORTABLE: YES DEFINITY: NO BUBBLE STUDY: NO DIAGNOSIS: ELEVATED TROPONIN CARDIAC HISTORY: CATHERIZATION:YES SURGERY: NO PROSTHETIC VALVE: NO PACEMAKER: NO MEASUREMENTS (cm) DIASTOLIC (NORMALS) SYSTOLIC (NORMALS) IVSd 1.2 (0.6-1.2) LA Diam 3.2 (1.9-4.0) LVEF 67% LVIDd 4.4 (3.5-5.7) LVIDs 2.8 (2.0-3.5) %FS 37% LVPWd 1.2 (0.6-1.2) Ao Diam 3.1 (2.0-3.7) 2 DIMENSIONAL ASSESSMENT: RIGHT ATRIUM: NORMAL LEFT ATRIUM: NORMAL RIGHT VENTRICLE: NORMAL LEFT VENTRICLE: NORMAL TRICUSPID VALVE: NORMAL MITRAL VALVE: NORMAL PULMONIC VALVE: NORMAL AORTIC VALVE: NORMAL PERICARDIAL EFFUSION: NONE AORTIC ROOT: NORMAL LEFT VENTRICULAR WALL MOTION: NORMAL DOPPLER/COLOR FLOW: NORMAL COMMENTS: NORMAL 2D ECHOCARDIOGRAM WITH DOPPLER. NO WALL MOTION ABNORMALITY. NO EFFUSION. TECHNOLOGIST: Aly BULL
[2022-01-27 08:48] VITALS: O2SAT 98
[2022-01-27] MEDS ORDERED: POTASSIUM CL SA 10 MEQ TAB PO ONE (09:00)
[2022-01-27] MEDS: HOME MED 1 EA UNK (Fluticasone Propionate [Flovent Diskus] 50 MCG Blst.W.Dev) NAS SCH (09:00)
[2022-01-27] MEDS: LACTULOSE 20 GM/30 ML UCUP PO SCH ×2 (09:27→13:44)
[2022-01-27] MEDS: POTASS/SODIUM PHOSPHATE 1 PKT POWD.PACK PO SCH ×2 (09:27→11:23)
[2022-01-27] MEDS: FUROSEMIDE 40 MG/4 ML VIAL IV SCH (09:27)
[2022-01-27] MEDS: SPIRONOLACTONE 25 MG TABLET PO SCH (09:28)
[2022-01-27] MEDS: carvediloL 3.125 MG TAB PO SCH ×2 (09:28→16:38)
[2022-01-27] MEDS: FOLIC ACID 1 MG TABLET PO SCH (09:28)
[2022-01-27] MEDS: lisinopriL 20 MG TAB PO SCH (09:28)
[2022-01-27] MEDS: METFORMIN ER 500 MG TAB PO SCH ×2 (09:28→16:38)
[2022-01-27] MEDS: Rifaximin 550 MG Tab PO SCH (09:29)
[2022-01-27] MEDS: PANTOPRAZOLE 40MG TABLET PO SCH (09:30)
[2022-01-27 16:12] VITALS: BP 112/51; TEMP 97.4
--- NOTE | 2022-01-27 18:07 | P.DS ---
Admission Date: 01/25/22 Discharge Date: 01/27/22 Primary Care Provider: Sumeet Alcantar Disposition: ROUTINE DISCHARGE Reason for Admission: Abdominal pain and distention. - Problems (1) Ascites of liver Current Visit: Yes Status: Acute (2) Diabetes mellitus with neuropathy Current Visit: Yes Status: Acute Qualifiers: Diabetes mellitus type: type 2 Brief History of Present Illness: Patient was admitted due swollen belly Assumed assicitis. He states his belly has been gradually increasing in size. Was admitted by the [facility] Course: Patient had 1 lt of fluid drained by IR Attempted it again. He had no fluid on follow p ultrasound.States he is feeling well and would like to go home. Will discharge him home with 1 week follow up Vital Signs/Physical Exam: Temp Pulse Resp BP Pulse Ox 97.4 F 67 18 112/51 L 100 01/27/22 16:00 01/27/22 16:38 01/27/22 16:00 01/27/22 16:38 01/27/22 16:00 General: Alert, In no apparent distress HEENT: Atraumatic, PERRLA, EOMI Neck: Supple, JVD not distended Respiratory: Clear to auscultation bilaterally, Normal air movement Cardiovascular: Regular rate/rhythm, Normal S1 S2 Gastrointestinal: Normal bowel sounds, No tenderness Musculoskeletal: No tenderness Integumentary: No rashes Neurological: Normal speech, Normal tone, Normal affect Lymphatics: No axilla or inguinal lymphadenopathy Laboratory Data at Discharge: WBC 4.60 K/uL (4.3-10.9) D 01/27/22 06:09 Hgb 9.7 g/dL (13.6-17.9) L 01/27/22 06:09 Hct 31.1 % (39.6-49.0) L 01/27/22 06:09 Plt Count 64 K/uL (152-406) L 01/27/22 06:09 PT 15.6 SECONDS (9.5-12.5) H 01/24/22 10:40 INR 1.41 01/24/22 10:40 APTT 31.5 SECONDS (24.3-36.9) 01/24/22 10:40 Sodium 134 mmol/L (136-145) L 01/27/22 06:09 Potassium 3.9 mmol/L (3.5-5.1) 01/27/22 06:09 BUN 6 mg/dL (7-18) L 01/27/22 06:09 Creatinine 0.63 mg/dL (0.55-1.3) 01/27/22 06:09 Glucose 124 mg/dL (74-106) H 01/27/22 06:09 Phosphorus 2.1 mg/dL (2.5-4.9) L 01/27/22 06:09 Magnesium 2.0 mg/dL (1.8-2.4) 01/27/22 06:09 Total Bilirubin 1.3 mg/dL (0.2-1.0) H 01/27/22 06:09 AST 48 U/L (15-37) H 01/27/22 06:09 ALT 29 U/L (12-78) 01/27/22 06:09 Alkaline Phosphatase 137 U/L (45-117) H 01/27/22 06:09 Lipase 94 U/L (73-393) 01/24/22 10:40 Home Medications: Carvedilol [Coreg] 3.125 mg PO BIDWM 01/11/20 Folic Acid 1 mg PO DAILY 01/11/20 Pantoprazole [Protonix Tab*] 40 mg PO DAILY 01/11/20 Spironolactone 25 mg PO DAILY 01/11/20 Furosemide [Lasix*] 40 mg PO DAILY 09/18/20 Insulin -Regular Human [Novolin -R*] See Protocol SQ ACHS 09/18/20 Trazodone [Desyrel*] 50 mg PO BEDTIME 09/18/20 Fluticasone Propionate [Flovent Diskus] 50 mcg BONNY DAILY 06/21/21 Lisinopril [Zestril] 20 mg PO DAILY 06/21/21 Metformin ER [Glucophage ER*] 500 mg PO BID 06/21/21 hydrOXYzine HCL [Atarax] 50 mg PO BID 06/21/21 Lactulose [Cephulac*] 30 ml PO TID 30 Days #1800 ucup 06/23/21 Rifaximin [Xifaxan] 550 mg PO BID #180 tablet 06/23/21 Diet: ADA Activity: Ad jasmin Followup: Bebeto Harley MD [ACTIVE - CAN ADMIT] - 1 Week Physician Review: Patient Assessed, Agree with Above Assessment and Plan Time spent managing pt's care (in minutes): 30
[2022-01-29 20:23] LABS: GLUCOSE, PERITONEAL FLUID 127 mg/dL; LD, PERITONEAL FLUID 30 U/L (<63); TOTAL PROTEIN,PERITONEAL FLUID <3.0 g/dL
== END 2022-01-27 18:27 | disposition home or self-care (01) | DRG 433 ==
LOC: ER 10:01 → ERHOLD 14:02 → 2ND 21:53 → OBSVTOIN 01-25 16:56
PROVIDERS: ADMIT Internal Medicine; ATTEND Internal Medicine
PROC: 0W9G3ZX Drainage of Peritoneal Cavity, Percutaneous Approach, Diagnostic (ICD-10-PCS; 2022-01-25)
PROC: 0W9G3ZX Drainage of Peritoneal Cavity, Percutaneous Approach, Diagnostic (ICD-10-PCS; principal; 2022-01-26)
DX: K70.31 Alcoholic cirrhosis of liver with ascites (principal); Z68.41 Body mass index [BMI] 40.0-44.9, adult; I24.8 Other forms of acute ischemic heart disease; L40.9 Psoriasis, unspecified; D69.6 Thrombocytopenia, unspecified; K21.9 Gastro-esophageal reflux disease without esophagitis; D63.8 Anemia in other chronic diseases classified elsewhere; E66.9 Obesity, unspecified; F90.9 Attention-deficit hyperactivity disorder, unspecified type; R11.2 Nausea with vomiting, unspecified; R19.7 Diarrhea, unspecified; E78.5 Hyperlipidemia, unspecified; Z87.891 Personal history of nicotine dependence; E11.40 Type 2 diabetes mellitus with diabetic neuropathy, unspecified; Z20.822 Contact with and (suspected) exposure to COVID-19
CPT/HCPCS: 36415; 49083; 71045; 74177; 80048; 80053; 80076; 81003; 82042; 82140; 82945; 82947; 83615; 83690; 83735; 83880; 84100; 84157; 84484; 85025; 85610; 85730; 87045; 87046; 87070; 87177; 87209; 87811; 88108; 88305; 89050; 89055; 93005; 93306; 97161; 99285; G0378; J1940; J2001; J3475; P9045; Q9967

== ENCOUNTER 2022-02-07 10:43 | Observation (INO) | payer OTHER ==
--- OUTSIDE RECORDS SUMMARY | 2022-02-07 11:14 | XMS REPORT | Continuity of Care Document ---
:1955 Author Organization [facility] t Address [address] [place] [address] Care Team Providers Name Role Phone PEARL CHU Primary Care Physician Unavailable JOSH MYERS Attending Clinician Unavailable AMBERLY WASHINGTON Attending Clinician Unavailable Eddie Steinberg RN Attending Clinician Unavailable Aimee Stringer Attending Clinician Unavailable Jeffrey Guzmán Attending Clinician Unavailable Chary Irvin RN Attending Clinician Unavailable Amberly Washington MD Attending Clinician FELISHA QUINTANA Attending Clinician Unavailable Felisha Quintana MD Attending Clinician Shahnaz Reddy RN Attending Clinician Unavailable Pearl Chu MD Attending Clinician Belén Hunter RN Attending Clinician Unavailable CHANDRAKANT GARRETT Attending Clinician Unavailable Chandrakant Garrett DO Attending Clinician Mena Sheffield MA Attending Clinician Unavailable Derik BRITO, Anne-Marie Roe Attending Clinician Nancy Landon Attending Clinician Unavailable TAM GUIDRY Attending Clinician Unavailable Nurse, Shabnam Pob Immunization Attending Clinician Unavailable Tam Guidry DO Attending Clinician Marta Stein Attending Clinician Unavailable System, Provider Not In Attending Clinician Unavailable PEARL CHU Attending Clinician Unavailable Ruba GOMEZ MPH, Nickie Agustin Attending Clinician [phone] Anil Salvador Attending Clinician Unavailable Mauricio CONTRERAS, Samira Arita Attending Clinician Unavailable Iker CONTRERAS, Vicky Attending Clinician Unavailable Ni GOMEZ, Tiny Attending Clinician JOSE FRANCISCO LAGUNA Attending Clinician Unavailable Wendy Bull DO Attending Clinician Doctor Unassigned, [place] Attending Clinician Unavailable Albert Arroyo MD, [facility] Attending Clinician Unavailable Alison Palmer Attending Clinician [...] Date S ource MEDICARE PART A \\T\\ [id number] 2018 B 00:00:00 MEDICARE A B [id number] 2018 00:00:00 [facility] [id number] 2021 (MEDICARE 00:00:00 REPLACEMENT HMO) COVID VACCINE ADMIN [id number] 2020-06-28 / TESTING 00:00:00 Problems Condition Condition Condition Status Onset Resolution Last Treating Co mments Source Name Details Category Date Date Treatment Clinician Date Brain Brain Disease Active [facility]27 [facility] Hepatocell Hepatocell Disease Active [facility]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 He is an acceptabl e candidate for liver transplan t pending further imaging/t esting and official review at [facility]. Psoriasis Psoriasis Disease Active Last [facility] 7[facility]24 [facility] 00:00: t & Plan: Medical 00 [facility] g of this note might be different from the original. Continue follow up with dermatolo gy/rheuma tology. Immunity Immunity Disease Active [facility] status status 7 [facility] testing testing 00:00: Medical 00 [place] SBP SBP Disease Active [facility] (spontaneo (spontaneo 6-04 Esther kes us us 00:00: Medical bacterial bacterial 00 Cent er peritoniti peritoniti s) s) Portal Portal Disease Active [facility] hypertensi hypertensi 6-04 Esther kes on on 00:00: Medical 00 Center Septic Septic Disease Active [facility] shock shock 6-04 [facility] 00:[facility]: Medical 00 [place] Hepatic Hepatic Disease Active [facility] encephalop encephalop 6-04 Esther kes athy athy 00:00: Medical 00 [place] Sepsis Sepsis Disease Active [facility] 6[facility]01 [facility] 00:[facility]: Medical 00 [place] 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 He will continue follow up with hepatolog y. Ascites Ascites Disease Active Last [facility] due to due to 10-03 Assessmen [place] alcoholic alcoholic 00:00: t & Plan: M edical cirrhosis cirrhosis [address] [facility] enter g of this note might be [...] of without without 00:00: g of this [place] obstructio obstructio 00 note Me dical n or n or might be Branch gangrene gangrene different from the original. Added automatic ally from request for surgery [id number] Ventral Ventral Disease Active Overview: Univ ers hernia hernia 06-26 Added ity of without without 00:00: automatic [place] obstructio obstructio 00 ally from Medical n or n or request Branch gangrene gangrene for surgery [id number] Screening Screening Disease Active 2017-05 Overview: [facility] for for 07-25 Formattin ity of colorectal colorectal 00:00: g of this [place] cancer cancer 00 note Medical might be Branch different from the original. Added automatic ally from request for surgery [id number] Psoriasis Psoriasis Disease Active 2017-05 Uni vers [...] Of [facility] m Allergy Breath - [facility] 00:[facility]: Medical 00 Center LORAZEPA Allergy Active [facility] M 5-11 [facility] 00:[facility]: Medical 00 Center NO KNOWN Drug Active [facility] ALLERGIE Class ity of S [facility] NO KNOWN Allergy [facility] Family History Family Member Diagnosis Comments Start Date Stop Date Source Natural brother Diabetes [facility] Natural brother [facility]pertension [facility] Natural father Diabetes [facility] Natural mother Liver disease [facility] Natural sister Cancer [facility] Social History Social Habit Start Date [...] [facility] Alcohol intake 2021-03-12 2021-03-[address] [facility] [...] Start Date Stop Date Source Former smoker 2018-10-03 00:00:00 2018-10-03 00:00:00 [facility] Unknown if ever smoked Universit y [facility] Medical Branch Smokes tobacco daily 2010-06-15 00:00:00 [facility] Medications Ordered Filled Start Stop Current Ordering [...] Sun Branch 12/26/21 at 1600, LAURA triamcinolo 2021-0 Yes Q.5D Apply [facility] ne 12-22 topically [facility] (KENALOG) 10:52: 2 (two) Medic al 0.1 % 13 times Center topical daily to cream affected area. . traZODone 2021-0 Yes 50mg QD Take [address] (DESYREL) 12-22 by mouth [facility] 50 MG 10:52: nightly. Medical tablet 13 Center triamcinolo 2021-0 Yes Q.5D Apply [facility] t ne 7-27 topically [facility] (KENALOG) 10:52: 2 (two) Medic al 0.1 % 13 times Center topical daily to cream affected area. . traZODone 2021-0 Yes 50mg QD Take [address] (DESYREL) 7-27 by mouth [facility] 50 MG 10:52: nightly. Medical tablet 13 Center spironolact 0 Yes 100mg QD Take [address] one 7-27 mg by [facility] (ALDACTONE) 10:52: mouth Medic al 100 MG 11 daily . Center tablet spironolact 2021-0 Yes 100mg QD Take [address] one 7-27 mg by [facility] (ALDACTONE) 10:52: mouth Medic al 100 MG 11 daily . Center tablet rifAXIMin 2021-0 Yes 550mg Q.5D Take [address] 550 mg Tab 7-27 mg by [facility]ukes 10:52: mouth 2 Medical 10 (two) Center times daily. rifAXIMin 2021-0 Yes 550mg Q.5D Take [address] 550 mg Tab 7-27 mg by [facility] 10:52: mouth 2 Medical 10 (two) Center times daily. insulin 2021-0 Yes 50U QD Inject 50 [facility] t glargine 7-27 Units [facility] U-300 conc 10:52: subcutaneo M edical (Toujeo Max 05 usly Center U-300 daily. SoloStar) 300 unit/mL (3 mL) InPn insulin 2021-0 Yes 50U QD Inject 50 [facility] t glargine 7-27 Units [facility] U-300 conc 10:52: subcutaneo M edical (Toujeo Max 05 usly Center U-300 daily. [employer]Star) 300 unit/mL (3 mL) InPn furosemide 2021-0 Yes 40mg Q.[id number] Take [address] (LASIX) 20 7-27 [id number] by mouth 3 [facility] MG tablet 10:52: 3D (three) Medic al 04 times Center daily . furosemide 2021-0 Yes 40mg Q.[id number] Take [address] (LASIX) 20 7-27 [id number] by mouth 3 [facility] MG tablet 10:52: 3D (three) Medic al 04 times Center daily . gabapentin 2021-0 Yes 100mg Q.[id number] Take [address] (NEURONTIN) 5-06 [id number] mg by L ukes 100 MG 00:00: 3D mouth 3 Medical capsule 00 (three) Center times daily. gabapentin 2022-0 Yes 100mg Q.[id number] Take [address] (NEURONTIN) 5-06 [id number] mg by L ukes 100 MG 00:00: 3D mouth 3 Medical capsule 00 (three) Center times daily. FUROSEMIDE 2020-05 Yes [id number] TAKE ONE Univers 40 mg 0-20 (1) TABLET ity of tablet 00:00: BY MOUTH [place] 00 TWICE Medical DAILY IN [place] THE MORNING AND EVENING FUROSEMIDE 2020-05 Yes [id number] TAKE ONE Univers 40 mg 0-20 (1) TABLET ity of tablet 00:00: BY MOUTH [place] 00 TWICE Medical DAILY IN [place] THE MORNING AND EVENING FUROSEMIDE 2020-05 Yes [id number] TAKE ONE Univers 40 mg 0-20 (1) TABLET ity of tablet 00:00: BY MOUTH [place] TWICE Medical DAILY IN [place] THE MORNING AND EVENING FUROSEMIDE 2020-05 Yes [id number] TAKE ONE Univers 40 mg 0-20 (1) TABLET ity of tablet 00:00: BY MOUTH [place] TWICE Medical DAILY IN [place] THE MORNING AND EVENING FUROSEMIDE 2020-05 Yes [id number] TAKE ONE Univers 40 mg 0-20 (1) TABLET ity of tablet 00:00: BY MOUTH [place] 00 TWICE Medical DAILY IN [place] THE MORNING AND EVENING PANTOPRAZOL 2020-05 Yes [id number] Take 1 Univers E 40 mg EC 0-19 tablet by ity of tablet 00:00: mouth once daily [facility] PANTOPRAZOL 2020-05 Yes [id number] Take 1 Univers E 40 mg EC 0-19 tablet by ity of tablet 00:00: mouth once daily [facility] PANTOPRAZOL 2020-05 Yes [id number] Take 1 Univers E 40 mg EC 0-19 tablet by ity of tablet 00:00: mouth once daily [facility] PANTOPRAZOL 2020-05 Yes [id number] Take 1 Univers E 40 mg EC 0-19 tablet by ity of tablet 00:00: mouth once daily [facility] PANTOPRAZOL 2020-05 Yes [id number] Take 1 Univers E 40 mg EC 0-19 tablet by ity of tablet 00:00: mouth once daily [facility] PANTOPRAZOL 2020-05 Yes [id number] Take 1 Univers E 40 mg EC 0-19 tablet by ity of tablet 00:00: mouth once daily [facility] rifAXIMin 2020-05 Yes 550mg Q.5D Take [address] 550 mg Tab 0-15 mg by [facility]ukes 18:15: mouth 2 Medical 42 (two) Center times daily. furosemide 2020-05 Yes 40mg Q.[id number] Take [address] (LASIX) 20 0-15 [id number] by mouth 3 [facility] MG tablet 18:15: [...] daily with breakfast and dinner . metFORMIN Yes 500mg Take [address] (GLUCOPHAGE 9-27 mg by [facility] ) 500 MG 00:00: mouth 2 Medica l tablet 00 (two) Center times daily with breakfast and dinner . metFORMIN Yes 500mg Take [address] (GLUCOPHAGE 9-27 mg by [facility] ) 500 MG 00:00: mouth 2 Medica l tablet 00 (two) Center times daily with breakfast and dinner . lisinopriL Yes [id number] 20mg Take 1 U nivers 20 mg 5-19 tablet by ity of tablet 00:00: mouth [place] 00 daily. Medical Branch spironolact 2021-0 Yes [id number] 25mg Take 1 Univers one 25 mg 5-19 tablet by ity o f tablet 00:00: mouth 2 (two) Medical times Branch daily. carvediloL 0 Yes [id number] 3.125mg Take 1 Univers 3.125 mg 5-19 tablet by ity of tablet 00:00: mouth 2 (two) Medical times Branch daily with meals. Pitavastati Yes [id number] 2mg Take 2 mg Univers n (LIVALO) 5-19 by mouth ity o f 2 mg Tab 00:00: daily. Medical Branch metFORMIN 2020-0 Yes [id number] 500mg Take 1 Univers 500 mg 5-19 tablet by ity of tablet 00:00: mouth 2 (two) Medical times Branch daily with meals. Blood-Gluco Yes [id number] Use BID, Univers se Meter 5-19 DX E11.9 ity of (ACCU-CHEK 00:00: ([employer] [place] GUIDE 00 upon Medical GLUCOSE insurance Branch METER) Misc approval) ACCU-CHEK GUIDE blood sugar 2020-0 Yes [id number] Use BID, Univers diagnostic 5-19 DX E11.9 ity o f (ACCU-CHEK 00:00: ([place] GUIDE TEST 00 upon Medical STRIPS) insurance Branch strip approval) rifAXIMin 2020-0 Yes [id number] 550mg Take 1 Univers 550 mg 5-19 tablet by ity of tablet 00:00: mouth 2 (two) Medical times Branch daily. hydrOXYzine 2020-0 Yes [id number] 50mg Take 1 U nivers 50 mg 5-19 tablet by ity of tablet 00:00: mouth 3 (three) Medical times Branch daily as needed for Itching. lisinopriL 2020-0 Yes [id number] 20mg Take 1 U nivers 20 mg 5-19 tablet by ity of tablet 00:00: mouth daily. Medical Branch spironolact 2020-0 Yes [id number] 25mg Take 1 Univers one 25 mg 5-19 tablet by ity o f tablet 00:00: mouth 2 (two) Medical times Branch daily. carvediloL 2020-0 Yes [id number] 3.125mg Take 1 Univers 3.125 mg 5-19 tablet by ity of tablet 00:00: mouth 2 (two) Medical times Branch daily with meals. Pitavastati 2020-0 Yes [id number] 2mg Take 2 mg Univers n (LIVALO) 5-19 by mouth ity o f 2 mg Tab 00:00: daily. Medical Branch metFORMIN 2020-0 Yes [id number] 500mg Take 1 Univers 500 mg 5-19 tablet by ity of tablet 00:00: mouth 2 (two) Medical times Branch daily with meals. Blood-Gluco 2020-0 Yes [id number] Use BID, Univers se Meter 5-19 DX E11.9 ity of (ACCU-CHEK 00:00: ([employer] [place] GUIDE 00 upon [facility] GLUCOSE insurance Branch METER) Misc approval) ACCU-CHEK GUIDE blood sugar 0 Yes [id number] Use BID, Univers diagnostic 5-19 DX E11.9 ity o f (ACCU-CHEK 00:00: ([place] GUIDE TEST 00 upon Medical STRIPS) insurance Branch strip approval) rifAXIMin 2020-0 Yes [id number] 550mg Take 1 Univers 550 mg 5-19 tablet by ity of tablet 00:00: mouth (two) Medical times Branch daily. hydrOXYzine 2020-0 Yes [id number] 50mg Take 1 U nivers 50 mg 5-19 tablet by ity of tablet 00:00: mouth 3 (three) Medical times Branch daily as needed for Itching. lisinopriL 2020-0 Yes [id number] 20mg Take 1 U nivers 20 mg 5-19 tablet by ity of tablet 00:00: mouth daily. Medical Branch spironolact 2020-0 Yes [id number] 25mg Take 1 Univers one 25 mg 5-19 tablet by ity o f tablet 00:00: mouth 2 (two) Medical times Branch daily. carvediloL 2020-0 Yes [id number] 3.125mg Take 1 Univers 3.125 mg 5-19 tablet by ity of tablet 00:00: mouth (two) Medical times Branch daily with meals. Pitavastati 2020-0 Yes [id number] 2mg Take 2 mg Univers n (LIVALO) 5-19 by mouth ity o f 2 mg Tab 00:00: daily. Medical Branch metFORMIN 2020-0 Yes [id number] 500mg Take 1 Univers 500 mg 5-19 tablet by ity of tablet 00:00: mouth 2 (two) Medical times Branch daily with meals. Blood-Gluco 2020-0 Yes [id number] Use BID, Univers se Meter 5-19 DX E11.9 ity of (ACCU-CHEK 00:00: (Brand GUIDE 00 upon Medical GLUCOSE insurance Branch METER) Misc approval) ACCU-CHEK GUIDE blood sugar 2020-0 Yes [id number] Use BID, Univers diagnostic 5-19 DX E11.9 ity o f (ACCU-CHEK 00:00: (Brand [place] GUIDE TEST 00 upon Medical STRIPS) insurance Branch strip approval) rifAXIMin 2020-0 Yes [id number] 550mg Take 1 Univers 550 mg 5-19 tablet by ity of tablet 00:00: mouth 2 (two) Medical times Branch daily. hydrOXYzine 2020-0 Yes [id number] 50mg Take 1 U nivers 50 mg 5-19 tablet by ity of tablet 00:00: mouth 3 (three) Medical times Branch daily as needed for Itching. lisinopriL 2020-0 Yes [id number] 20mg Take 1 U nivers 20 mg 5-19 tablet by ity of tablet 00:00: mouth daily. Medical Branch spironolact 2020-0 Yes [id number] 25mg Take 1 Univers one 25 mg 5-19 tablet by ity o f tablet 00:00: mouth 2 (two) Medical times Branch daily. carvediloL 2020-0 Yes [id number] 3.125mg Take 1 Univers 3.125 mg 5-19 tablet by ity of tablet 00:00: mouth (two) Medical times Branch daily with meals. Pitavastati 2020-0 Yes [id number] 2mg Take 2 mg Univers n (LIVALO) 5-19 by mouth ity o f 2 mg Tab 00:00: daily. Medical Branch metFORMIN 2020-0 Yes [id number] 500mg Take 1 Univers 500 mg 5-19 tablet by ity of tablet 00:00: mouth (two) Medical times Branch daily with meals. Blood-Gluco 2020-0 Yes [id number] Use BID, Univers se Meter 5-19 DX E11.9 ity of (ACCU-CHEK 00:00: (Brand [place] GUIDE 00 upon Medical GLUCOSE insurance Branch METER) Misc approval) ACCU-CHEK GUIDE blood sugar 0 Yes [id number] Use BID, Univers diagnostic 5-19 DX E11.9 ity o f (ACCU-CHEK 00:00: (Brand [place] GUIDE TEST 00 upon Medical STRIPS) insurance Branch strip approval) rifAXIMin 2020- Yes [id number] 550mg Take 1 Univers 550 mg 5-19 tablet by ity of tablet 00:00: mouth 2 (two) Medical times Branch daily. hydrOXYzine 2020-0 Yes [id number] 50mg Take 1 U nivers 50 mg 5-19 tablet by ity of tablet 00:00: mouth 3 (three) Medical times Branch daily as needed for Itching. lisinopriL Yes [id number] 20mg Take 1 U nivers 20 mg 5-19 tablet by ity of tablet 00:00: mouth daily. Medical Branch spironolact 0 Yes [id number] 25mg Take 1 Univers one 25 mg 5-19 tablet by ity o f tablet 00:00: mouth 2 (two) Medical times Branch daily. carvediloL Yes [id number] 3.125mg Take 1 Univers 3.125 mg 5-19 tablet by ity of tablet 00:00: mouth 2 (two) Medical times Branch daily with meals. Pitavastati Yes [id number] 2mg Take 2 mg Univers n (LIVALO) 5-19 by mouth ity o f 2 mg Tab 00:00: daily. Medical Branch metFORMIN 2020-0 Yes [id number] 500mg Take 1 Univers 500 mg 5-19 tablet by ity of tablet 00:00: mouth (two) Medical times Branch daily with meals. Blood-Gluco 2020-0 Yes [id number] Use BID, Univers se Meter 5-19 DX E11.9 ity of (ACCU-CHEK 00:00: (Brand [place] GUIDE 00 upon Medical GLUCOSE insurance Branch METER) Misc approval) ACCU-CHEK GUIDE blood sugar 2020-0 Yes [id number] Use BID, Univers diagnostic 5-19 DX E11.9 ity o f (ACCU-CHEK 00:00: ([place] GUIDE TEST 00 upon Medical STRIPS) insurance Branch strip approval) rifAXIMin 2020-0 Yes [id number] 550mg Take 1 Univers 550 mg 5-19 tablet by ity of tablet 00:00: mouth 2 (two) Medical times Branch daily. hydrOXYzine 2020-0 Yes [id number] 50mg Take 1 U nivers 50 mg 5-19 tablet by ity of tablet 00:00: mouth 3 (three) Medical times Branch daily as needed for Itching. lisinopriL 2020-0 Yes [id number] 20mg Take 1 U nivers 20 mg 5-19 tablet by ity of tablet 00:00: mouth daily. Medical Branch spironolact 2020-0 Yes [id number] 25mg Take 1 Univers one 25 mg 5-19 tablet by ity o f tablet 00:00: mouth 2 (two) Medical times Branch daily. carvediloL 2020- Yes [id number] 3.125mg Take 1 Univers 3.125 mg 5-19 tablet by ity of tablet 00:00: mouth 2 (two) Medical times Branch daily with meals. Pitavastati 2020- Yes [id number] 2mg Take 2 mg Univers n (LIVALO) 5-19 by mouth ity o f 2 mg Tab 00:00: daily. Medical Branch metFORMIN 2020-0 Yes [id number] 500mg Take 1 Univers 500 mg 5-19 tablet by ity of tablet 00:00: mouth 2 (two) Medical times Branch daily with meals. Blood-Gluco 2020-0 Yes [id number] Use BID, Univers se Meter 5-19 DX E11.9 ity of (ACCU-CHEK 00:00: ([facility] GUIDE 00 upon Medical GLUCOSE insurance Branch METER) Misc approval) ACCU-CHEK GUIDE blood sugar 2020-0 Yes [id number] Use BID, Univers diagnostic 5-19 DX E11.9 ity o f (ACCU-CHEK 00:00: ([employer] [place] GUIDE TEST 00 upon Medical STRIPS) insurance Branch strip approval) rifAXIMin 2020-0 Yes [id number] 550mg Take 1 Univers 550 mg 5-19 tablet by ity of tablet 00:00: mouth 2 (two) Medical times Branch daily. furosemide 2020-0 Yes [id number] 40mg Take 1 Univers 40 mg 5-19 tablet by ity of tablet 00:00: mouth 00 every Medical morning Branch and evening. hydrOXYzine 2020-0 Yes [id number] 50mg Take 1 U nivers 50 mg 5-19 tablet by ity of tablet 00:00: mouth 3 (three) Medical times Branch daily as needed for Itching. lisinopriL 0 Yes [id number] 20mg Take 1 U nivers 20 mg 5-19 tablet by ity of tablet 00:00: mouth 00 daily. Medical Branch spironolact 2020-0 Yes [id number] 25mg Take 1 Univers one 25 mg 5-19 tablet by ity o f tablet 00:00: mouth (two) Medical times Branch daily. carvediloL Yes [id number] 3.125mg Take 1 Univers 3.125 mg 5-19 tablet by ity of tablet 00:00: mouth (two) Medical times Branch daily with meals. Pitavastati Yes [id number] 2mg Take 2 mg Univers n (LIVALO) 5-19 by mouth ity o f 2 mg Tab 00:00: daily. Medical Branch pantoprazol 2020-0 Yes [id number] 40mg Take 1 Univers e 40 mg EC 5-19 tablet by ity of tablet 00:00: mouth daily. Medical Branch metFORMIN 0 Yes [id number] 500mg Take 1 Univers 500 mg 5-19 tablet by ity of tablet 00:00: mouth (two) Medical times Branch daily with meals. Blood-Gluco Yes [id number] Use BID, Univers se Meter 5-19 DX E11.9 ity of (ACCU-CHEK 00:00: ([employer] [place] GUIDE 00 upon Medical GLUCOSE insurance Branch METER) Misc approval) ACCU-CHEK GUIDE blood sugar 2020-0 Yes [id number] Use BID, Univers diagnostic 5-19 DX E11.9 ity o f (ACCU-CHEK 00:00: (Brand [place] GUIDE TEST 00 upon Medical STRIPS) insurance Branch strip approval) rifAXIMin 0 Yes [id number] 550mg Take 1 Univers 550 mg 5-19 tablet by ity of tablet 00:00: mouth 2 (two) Medical times Branch daily. furosemide 2020-0 Yes [id number] 40mg Take 1 Univers 40 mg 5-19 tablet by ity of tablet 00:00: mouth 00 every Medical morning Branch and evening. hydrOXYzine 2020-0 Yes [id number] 50mg Take 1 U nivers 50 mg 5-19 tablet by ity of tablet 00:00: mouth 3 (three) Medical times Branch daily as needed for Itching. lisinopriL 2020-0 Yes [id number] 20mg Take 1 U nivers 20 mg 5-19 tablet by ity of tablet 00:00: mouth daily. Medical Branch spironolact 0 Yes [id number] 25mg Take 1 Univers one 25 mg 5-19 tablet by ity o f tablet 00:00: mouth (two) Medical times Branch daily. carvediloL Yes [id number] 3.125mg Take 1 Univers 3.125 mg 5-19 tablet by ity of tablet 00:00: mouth 2 (two) Medical times Branch daily with meals. Pitavastati Yes [id number] 2mg Take 2 mg Univers n (LIVALO) 5-19 by mouth ity o f 2 mg Tab 00:00: daily. Medical Branch pantoprazol 2020-0 Yes [id number] 40mg Take 1 Univers e 40 mg EC 5-19 tablet by ity of tablet 00:00: mouth daily. Medical Branch metFORMIN 0 Yes [id number] 500mg Take 1 Univers 500 mg 5-19 tablet by ity of tablet 00:00: mouth 2 (two) Medical times Branch daily with meals. Blood-Gluco 2020- Yes [id number] Use BID, Univers se Meter 5-19 DX E11.9 ity of (ACCU-CHEK 00:00: (Brand [place] GUIDE 00 upon [facility] GLUCOSE insurance Branch METER) Misc approval) ACCU-CHEK GUIDE blood sugar 2020-0 Yes [id number] Use BID, Univers diagnostic 5-19 DX E11.9 ity o f (ACCU-CHEK 00:00: (Brand [place] GUIDE TEST 00 upon Medical STRIPS) insurance Branch strip approval) rifAXIMin 2021-0 Yes [id number] 550mg Take 1 Univers 550 mg 5-19 tablet by ity of tablet 00:00: mouth 2 (two) Medical times Branch daily. furosemide 2020-0 Yes [id number] 40mg Take 1 Univers 40 mg 5-19 tablet by ity of tablet 00:00: mouth 00 every Medical morning Branch and evening. hydrOXYzine 2020-0 Yes [id number] 50mg Take 1 U nivers 50 mg 5-19 tablet by ity of tablet 00:00: mouth 3 (three) Medical times Branch daily as needed for Itching. lisinopriL 0 Yes [id number] 20mg Take 1 U nivers 20 mg 5-19 tablet by ity of tablet 00:00: mouth 00 daily. Medical Branch spironolact 0 Yes [id number] 25mg Take 1 Univers one 25 mg 5-19 tablet by ity o f tablet 00:00: mouth (two) Medical times Branch daily. carvediloL Yes [id number] 3.125mg Take 1 Univers 3.125 mg 5-19 tablet by ity of tablet 00:00: mouth 2 (two) Medical times Branch daily with meals. Pitavastati Yes [id number] 2mg Take 2 mg Univers n (LIVALO) 5-19 by mouth ity o f 2 mg Tab 00:00: daily. Medical Branch pantoprazol 2020-0 Yes [id number] 40mg Take 1 Univers e 40 mg EC 5-19 tablet by ity of tablet 00:00: mouth daily. Medical Branch metFORMIN 2020-0 Yes [id number] 500mg Take 1 Univers 500 mg 5-19 tablet by ity of tablet 00:00: mouth 2 (two) Medical times Branch daily with meals. Blood-Gluco 2020-0 Yes [id number] Use BID, Univers se Meter 5-19 DX E11.9 ity of (ACCU-CHEK 00:00: ([employer] [place] GUIDE 00 upon [facility] GLUCOSE insurance Branch METER) Mis approval) ACCU-CHEK GUIDE blood sugar 2020-0 Yes [id number] Use BID, [facility] diagnostic 5-19 DX E11.9 ity o f (ACCU-CHEK 00:00: ([facility] [place] GUIDE TEST 00 upon Medical STRIPS) insurance Branch strip approval) rifAXIMin 0 Yes [id number] 550mg Take 1 [facility] 550 mg 5-19 tablet by ity of tablet 00:00: mouth 2 (two) Medical times Branch daily. furosemide 2020-0 Yes [id number] 40mg Take 1 [facility] 40 mg 5-19 tablet by ity of tablet 00:00: mouth 00 every Medical morning Branch and evening. hydrOXYzine 2020-0 Yes [id number] 50mg Take 1 U nivers 50 mg 5-19 tablet by ity of tablet 00:00: mouth 3 (three) Medical times Branch daily as needed for Itching. lisinopriL 0 Yes [id number] 20mg Take 1 U nivers 20 mg 5-19 tablet by ity of tablet 00:00: mouth 00 daily. Medical Branch spironolact Yes [id number] 25mg Take 1 [facility] one 25 mg 5-19 tablet by ity o f tablet 00:00: mouth (two) Medical times Branch daily. carvediloL Yes [id number] 3.125mg Take 1 [facility] 3.125 mg 5-19 tablet by ity of tablet 00:00: mouth (two) Medical times Branch daily with meals. Pitavastati Yes [id number] 2mg Take 2 mg [facility] n (LIVALO) 5-19 by mouth ity o f 2 mg Tab 00:00: daily. Medical Branch pantoprazol 2020-0 Yes [id number] 40mg Take 1 [facility] e 40 mg EC 5-19 tablet by ity of tablet 00:00: mouth 00 daily. Medical Branch metFORMIN 2020-0 Yes [id number] 500mg Take 1 [facility] 500 mg 5-19 tablet by ity of tablet 00:00: mouth (two) Medical times Branch daily with meals. Blood-Gluco 2020-0 Yes [id number] Use BID, [facility] se Meter 5-19 DX E11.9 ity of (ACCU-CHEK 00:00: ([place] GUIDE 00 upon Medical GLUCOSE insurance Branch METER) Misc approval) ACCU-CHEK GUIDE blood sugar 2020-0 Yes [id number] Use BID, [facility] diagnostic 5-19 DX E11.9 ity o f (ACCU-CHEK 00:00: ([facility] [place] GUIDE TEST 00 upon Medical STRIPS) insurance Branch strip approval) rifAXIMin Yes [id number] 550mg Take 1 [facility] 550 mg 5-19 tablet by ity of tablet 00:00: mouth 2 [place] 00 (two) Medical times Branch daily. furosemide Yes [id number] 40mg Take 1 [facility] 40 mg 5-19 tablet by ity of tablet 00:00: mouth [place] 00 every Medical morning Branch and evening. hydrOXYzine Yes [id number] 50mg Take 1 U nivers 50 mg 5-19 tablet by ity of tablet 00:00: mouth 3 [place] 00 (three) Medical times Branch daily as needed for Itching. furosemide 2020- No [id number] 40mg Take 1 [facility] 40 mg 5-19 10-20 tablet by ity of tablet 00:00: 00:00 mouth [place] 00 :00 every Medical morning Branch and evening. pantoprazol 2020- No [id number] 40mg Take 1 [facility] e 40 mg EC 5-19 10-19 tablet by ity of tablet 00:00: 00:00 mouth [place] 00 :00 daily. Medical Branch spironolact 2020- No 100mg Q.5D Take [address] [facility] one 4-06 04-06 mg [facility] (ALDACTONE) 12:49: 00:00 mouth 2 Me dical 100 MG 47 :00 (two) Center tablet times daily. penicillin 2020- No 500mg Q.[id number] Take [address] [facility] v potassium 4-06 04-06 [id number] [facility] (VEETID) 12:48: 00:00 3D mouth 3 Medic al 500 MG 17 :00 (three) Center tablet times daily. pitavastati 2020- No 2mg QD Take [address] [facility] n calcium 4- 04-06 by [facility] (LIVALO) 2 12:48: 00:00 daily . Med ical mg Tab 08 :00 Center tablet thiamine 2020- No 100mg QD Take [address] [facility] [address] (vitamin 4-06 04-06 [facility] B-1) 100 MG 12:48: 00:00 mouth Medi jeevan tablet 08 :00 daily. Center azithromyci 2020-0 Yes [id number] 250mg Take 1 [facility] n 3-24 tablet by ity of (ZITHROMAX 00:00: mouth [place] [facility]) 250 00 daily. Medical mg tablet Take 500 Branch mg day 1, then 250 mg days 2 to 5. azithromyci 2020-2020- No [id number] 250mg Take 1 [facility] n 3-24 05-19 tablet by ity of (ZITHROMAX 00:00: 00:00 mouth [place] [facility]) 250 00 :00 daily. Medical mg tablet Take 500 Branch mg day 1, then 250 mg days 2 to 5. azithromyci 2020-2020- No [id number] 250mg Take 1 [facility] n 3-24 05-19 tablet by ity of (ZITHROMAX 00:00: 00:00 mouth [place] [facility]) 250 00 :00 daily. Medical mg tablet Take 500 Branch mg day 1, then 250 mg days 2 to 5. LISINOPRIL 2020-0 Yes [id number] Take 1 [facility] nivers 20 mg 3-09 tablet by ity of tablet 00:00: mouth once 00 daily Medical Branch LISINOPRIL 2020-0 Yes [id number] Take 1 U nivers 20 mg 3-09 tablet by ity of tablet 00:00: mouth once 00 daily Medical Branch LISINOPRIL 2020-0 Yes [id number] Take 1 [facility] nivers 20 mg 3-09 tablet by ity of tablet 00:00: mouth once 00 daily Medical Branch LISINOPRIL 2020-0 2020- No [id number] Take 1 [facility] 20 mg 3-09 05-19 tablet by ity of tablet 00:00: 00:00 [place] :[place] daily Medical Branch LISINOPRIL 2020-0 2020- No [id number] Take 1 [facility] 20 mg 3-09 05-19 tablet by ity of tablet 00:00: 00:00 mouth [place] 00 :00 daily Medical Branch clobetasoL 2020-0 Yes [id number] Apply to [facility] 0.05 % 2-09 area(s) 2 ity of cream 00:00: (two) [place] 00 times Medical daily. Branch clobetasoL 2020-0 Yes [id number] Apply to [facility] 0.05 % 2-09 area(s) 2 ity of cream 00:00: (two) [place] 00 times Medical daily. Branch clobetasoL 2021-0 Yes [id number] Apply to [facility] 0.05 % 2-09 area(s) 2 ity of cream 00:00: (two) [place] 00 times Medical daily. Branch clobetasoL 2021-0 Yes [id number] Apply to [facility] 0.05 % 2-09 area(s) 2 ity of cream 00:00: (two) [place] 00 times Medical daily. Branch clobetasoL 2021-0 Yes [id number] Apply to [facility] 0.05 % 2-09 area(s) 2 ity of cream 00:00: (two) [place] 00 times Medical daily. Branch clobetasoL 2021-0 Yes [id number] Apply to [facility] 0.05 % 2-09 area(s) 2 ity of cream 00:00: (two) [place] 00 times Medical daily. Branch clobetasoL 2021-0 Yes [id number] Apply to [facility] 0.05 % 2-09 area(s) 2 ity of cream 00:00: (two) [place] 00 times Medical daily. Branch clobetasoL 2021-0 Yes [id number] Apply to Univers 0.05 % 2-09 area(s) 2 ity of cream 00:00: (two) [place] 00 times Medical daily. Branch clobetasoL 2021-0 Yes [id number] Apply to Univers 0.05 % 2-09 area(s) 2 ity of cream 00:00: (two) [place] 00 times Medical daily. Branch clobetasoL 2021-0 Yes [id number] Apply to [facility] 0.05 % 2-09 area(s) 2 ity of cream 00:00: (two) [place] 00 times Medical daily. Branch clobetasoL 2021-0 Yes [id number] Apply to Univers 0.05 % 2-09 area(s) 2 ity of cream 00:00: (two) [place] 00 times Medical daily. Branch clobetasoL 2021-0 Yes [id number] Apply to Univers 0.05 % 2-09 area(s) 2 ity of cream 00:00: (two) [place] 00 times Medical daily. Branch clobetasoL 2021-0 Yes [id number] Apply to [facility] 0.05 % 2-09 area(s) 2 ity of cream 00:00: (two) [place] 00 times Medical daily. Branch clobetasoL Yes [id number] Apply to [facility] 0.05 % 2-09 area(s) [...] of 1,000 mg in 03:45: 03:27 Piggyback, [place] NaCl 0.9% 00 :00 ONCE, 1 Medical (NS) 50 mL dose, Alyssa Bran ch MINI-BAG 06/25/20 at 2145, 50 mL
Reas on for Anti-Infec tive: Documented Infection< br>Documen lisa Infection Site: Respirator y
Durat ion of Therapy: 7 days foLIC acid Yes [id number] 1mg Take 1 [facility] 1 mg tablet 1-28 tablet by ity of 00:00: mouth [place] 00 daily. [facility] foLIC acid Yes [id number] 1mg Take 1 [facility] 1 mg tablet 1-28 tablet by ity of 00:00: mouth [place] 00 daily. [facility] foLIC acid Yes [id number] 1mg Take 1 [facility] 1 mg tablet 1-28 tablet by ity of 00:00: mouth [place] 00 daily. [facility] foLIC acid Yes [id number] 1mg Take 1 [facility] 1 mg tablet 1-28 tablet by ity of 00:00: mouth [place] 00 daily. [facility] foLIC acid Yes [id number] 1mg Take 1 [facility] 1 mg tablet 1-28 tablet by ity of 00:00: mouth [place] 00 daily. Medical Branch foLIC acid 2020-0 Yes [id number] 1mg Take 1 [facility] 1 mg tablet 1-28 tablet by ity of 00:00: mouth [place] 00 daily. Medical Branch foLIC acid 2020-0 Yes [id number] 1mg Take 1 [facility] 1 mg tablet 1-28 tablet by ity of 00:00: mouth [place] 00 daily. Medical Branch foLIC acid 2020-0 Yes [id number] 1mg Take 1 [facility] 1 mg tablet 1-28 tablet by ity of 00:00: mouth [place] 00 daily. Medical Branch foLIC acid 2020-0 Yes [id number] 1mg Take 1 [facility] 1 mg tablet 1-28 tablet by ity of 00:00: mouth [place] 00 daily. Medical Branch foLIC acid 2020-0 Yes [id number] 1mg Take 1 [facility] 1 mg tablet 1-28 tablet by ity of 00:00: mouth [place] 00 daily. Medical Branch foLIC acid 2020-0 Yes [id number] 1mg Take 1 [facility] 1 mg tablet 1-28 tablet by ity of 00:00: mouth [place] 00 daily. Medical Branch foLIC acid 2020-0 Yes [id number] 1mg Take 1 [facility] 1 mg tablet 1-28 tablet by ity of 00:00: mouth [place] 00 daily. Medical Branch foLIC acid 2020-0 Yes [id number] 1mg Take 1 [facility] 1 mg tablet 1-28 tablet by ity of 00:00: mouth [place] 00 daily. Medical Branch foLIC acid 2020-0 Yes [id number] 1mg Take 1 [facility] 1 mg tablet 1-28 tablet by ity of 00:00: mouth [place] 00 daily. Medical Branch foLIC acid 2020-0 Yes [id number] 1mg Take 1 [facility] 1 mg tablet 1-28 tablet by ity of 00:00: mouth [place] 00 daily. Medical Branch amoxicillin 2020-0 202- No [id number] 500mg Take 1 [facility] -pot 1-28 02-05 tablet by ity of clavulanate 00:00: 05:59 mouth [place] 500 mg 00 :00 every 8 Medical 500-125 mg (eight) Branch tablet hours for 7 days. clobetasoL 2019-0 Yes 1{appli Q.5D Apply 1 [facility] [...] [facility] (LASIX) 40 1-07 04-06 [facility] tablet 00:00: 00:00 (80 mg Medic al 00 :00 total) by Center mouth 2 (two) times daily. furosemide 2018-05 Yes [id number] 40mg Take 1 U nivers 40 mg 2-20 tablet by ity of tablet 00:00: mouth [place] 00 every Medical morning Branch and evening. metFORMIN 2018-05 Yes [id number] 500mg Take 1 [facility] 500 mg 2-20 tablet by ity of tablet 00:00: mouth 2 [place] (two) Medical times Branch daily with meals. carvedilol 2018-05 Yes [id number] 3.125mg Take 1 [facility] 3.125 mg 2-20 tablet by ity of tablet 00:00: mouth 2 [place] 00 (two) Medical times Branch daily with meals. lisinopril 2018-05 Yes [id number] 20mg Take 1 U nivers 20 mg 2-20 tablet by ity of tablet 00:00: mouth [place] 00 daily. Medical Branch spironolact 2018-05 Yes [id number] 25mg Take 1 [facility] one 25 mg 2-20 tablet by ity o f tablet 00:00: mouth 2 [place] 00 (two) Medical times Branch daily. rifAXIMin 2018-05 Yes [id number] 550mg Take 1 [facility] 550 mg 2-20 tablet by ity of tablet 00:00: mouth 2 [place] 00 (two) Medical times Branch daily. albuterol 2018-05 Yes [id number] 2{puff} Inhale 2 [facility] 90 2-20 Puffs ity of mcg/actuati 00:00: every 6 [place] on inhaler 00 (six) Medical hours as Branch needed for Wheezing or Shortness of Breath. Pitavastati 2018-05 Yes [id number] 2mg Take 2 mg [facility] n (LIVALO) 2-20 by mouth ity o f 2 mg Tab 00:00: daily. [place] 00 Medical Branch Lancets 2018-05 Yes [id number] Use BID, U nivers Misc 2-20 DX E11.9 ity of 00:00: ([facility] [place] 00 upon Medical insurance Branch approval) blood sugar 2018-05 Yes [id number] Use BID, [facility] diagnostic 2-20 DX E11.9 ity o f (ACCU-CHEK 00:00: ([facility] [place] GUIDE) 00 upon Medical strip insurance Branch approval) lactulose 2018-05 Yes [id number] 15mL Take 15 mL [facility] 10 gram/15 2-20 by mouth 3 ity of mL solution 00:00: (three) [place] 00 times Medical daily. Branch hydrOXYzine 2018-05 Yes [id number] 50mg Take 1 U nivers 50 mg 2-20 tablet by ity of tablet 00:00: mouth 3 [place] 00 (three) Medical times Branch daily as needed for Itching. calcipotrie 2018-05 Yes [id number] Apply to Univers ne 0.005 % 2-20 area(s) 2 ity of cream 00:00: (two) [place] 00 times Medical daily. Branch clobetasol 2018-05 Yes [id number] Apply to [facility] 0.05 % 2-20 area(s) 2 ity of cream 00:00: (two) [place] 00 times Medical daily. Branch foLIC acid 2018-05 Yes [id number] 1mg Take 1 [facility] 1 mg tablet 2-20 tablet by ity of 00:00: mouth [place] 00 daily. Medical Branch pantoprazol 2018- Yes [id number] 40mg Take 1 [facility] e 40 mg EC 2-20 tablet by ity of tablet 00:00: mouth [place] 00 daily. Medical Branch triamcinolo 2018-05 Yes [id number] Apply to Univers ne 2-20 affected ity of acetonide 00:00: area(s) 2 [place] 0.1 % cream 00 (two) Medical times Branch daily. furosemide 2018-05 Yes [id number] 40mg Take 1 U nivers 40 mg 2-20 tablet by ity of tablet 00:00: mouth [place] 00 every Medical morning Branch and evening. metFORMIN 2018-05 Yes [id number] 500mg Take 1 [facility] 500 mg 2-20 tablet by ity of tablet 00:00: mouth 2 (two) Medical times Branch daily with meals. carvedilol 2018-05 Yes [id number] 3.125mg Take 1 [facility] 3.125 mg 2-20 tablet by ity of tablet 00:00: mouth 2 (two) Medical times Branch daily with meals. lisinopril 2018-05 Yes [id number] 20mg Take 1 U nivers 20 mg 2-20 tablet by ity of tablet 00:00: mouth daily. Medical Branch spironolact 2018-05 Yes [id number] 25mg Take 1 [facility] one 25 mg 2-20 tablet by ity o f tablet 00:00: mouth 2 (two) Medical times Branch daily. rifAXIMin 2018-05 Yes [id number] 550mg Take 1 [facility] 550 mg 2-20 tablet by ity of tablet 00:00: mouth 2 [place] (two) Medical times Branch daily. albuterol 2018-05 Yes [id number] 2{puff} Inhale 2 [facility] 90 2-20 Puffs ity of mcg/actuati 00:00: every 6 [place] on inhaler 00 (six) Medical hours as Branch needed for Wheezing or Shortness of Breath. Pitavastati 2018-05 Yes [id number] 2mg Take 2 mg [facility] n (LIVALO) 2-20 by mouth ity o f 2 mg Tab 00:00: daily. [place] Medical Branch Lancets 2018-05 Yes [id number] Use BID, U nivers Misc 2-20 DX E11.9 ity of 00:00: ([facility] 00 upon Medical insurance Branch approval) blood sugar 2018-05 Yes [id number] Use BID, [facility] diagnostic 2-20 DX E11.9 ity o f (ACCU-CHEK 00:00: ([facility] GUIDE) [address] [place] [address] Medical strip insurance Branch approval) lactulose 2018-05 Yes [id number] 15mL Take 15 mL [facility] 10 gram/15 2-20 by mouth 3 ity of mL solution 00:00: (three) [place] 00 times Medical daily. Branch hydrOXYzine 2018-05 Yes [id number] 50mg Take 1 U nivers 50 mg 2-20 tablet by ity of tablet 00:00: mouth 3 [place] 00 (three) Medical times Branch daily as needed for Itching. calcipotrie 2018-05 Yes [id number] Apply to Univers ne 0.005 % 2-20 area(s) 2 ity of cream 00:00: (two) [place] 00 times Medical daily. Branch clobetasol 2018-05 Yes [id number] Apply to Univers 0.05 % 2-20 area(s) 2 ity of cream 00:00: (two) [place] 00 times Medical daily. Branch foLIC acid 2018-05 Yes [id number] 1mg Take 1 [facility] 1 mg tablet 2-20 tablet by ity of 00:00: mouth [place] 00 daily. Medical Branch pantoprazol 2018-05 Yes [id number] 40mg Take 1 [facility] e 40 mg EC 2-20 tablet by ity of tablet 00:00: mouth 00 daily. Medical Branch triamcinolo 2018-05 Yes [id number] Apply to Univers ne 2-20 affected ity of acetonide 00:00: area(s) 2 [place] 0.1 % cream 00 (two) Medical times Branch daily. furosemide 2018-05 Yes [id number] 40mg Take 1 U nivers 40 mg 2-20 tablet by ity of tablet 00:00: mouth [place] 00 every Medical morning Branch and evening. metFORMIN 2018-05 Yes [id number] 500mg Take 1 [facility] 500 mg 2-20 tablet by ity of tablet 00:00: mouth 2 (two) Medical times Branch daily with meals. carvedilol 2018-05 Yes [id number] 3.125mg Take 1 [facility] 3.125 mg 2-20 tablet by ity of tablet 00:00: mouth 2 (two) Medical times Branch daily with meals. lisinopril 2018-05 Yes [id number] 20mg Take 1 U nivers 20 mg 2-20 tablet by ity of tablet 00:00: mouth [place] 00 daily. Medical Branch spironolact 2018-05 Yes [id number] 25mg Take 1 [facility] one 25 mg 2-20 tablet by ity o f tablet 00:00: mouth 2 00 (two) Medical times Branch daily. rifAXIMin 2018-05 Yes [id number] 550mg Take 1 [facility] 550 mg 2-20 tablet by ity of tablet 00:00: mouth 2 00 (two) Medical times Branch daily. albuterol 2018-05 Yes [id number] 2{puff} Inhale 2 [facility] 90 2-20 Puffs ity of mcg/actuati 00:00: every 6 [place] on inhaler 00 (six) Medical hours as Branch needed for Wheezing or Shortness of Breath. Pitavastati 2018-05 Yes [id number] 2mg Take 2 mg [facility] n (LIVALO) 2-20 by mouth ity o f 2 mg Tab 00:00: daily. [place] 00 Medical Branch Lancets 2018-05 Yes [id number] Use BID, U nivers Misc 2-20 DX E11.9 ity of 00:00: ([facility] 00 upon Medical insurance Branch approval) blood sugar 2018-05 Yes [id number] Use BID, [facility] diagnostic 2-20 DX E11.9 ity o f (ACCU-CHEK 00:00: ([facility] GUIDE) [address] [place] [address] strip insurance Branch approval) lactulose 2018-05 Yes [id number] 15mL Take 15 mL [facility] 10 gram/15 2-20 by mouth 3 ity of mL solution 00:00: (three) [place] 00 times Medical daily. Branch hydrOXYzine 2018-05 Yes [id number] 50mg Take 1 U nivers 50 mg 2-20 tablet by ity of tablet 00:00: mouth 3 [place] 00 (three) Medical times Branch daily as needed for Itching. calcipotrie 2018-05 Yes [id number] Apply to Univers ne 0.005 % 2-20 area(s) 2 ity of cream 00:00: (two) [place] 00 times Medical daily. Branch clobetasol 2018-05 Yes [id number] Apply to Univers 0.05 % 2-20 area(s) 2 ity of cream 00:00: (two) [place] 00 times Medical daily. Branch pantoprazol 2018-05 Yes [id number] 40mg Take 1 [facility] e 40 mg EC 2-20 tablet by ity of tablet 00:00: mouth [place] 00 daily. Medical Branch triamcinolo 2018-05 Yes [id number] Apply to Univers ne 2-20 affected ity of acetonide 00:00: area(s) 2 [place] 0.1 % cream 00 (two) Medical times Branch daily. furosemide 2018-05 Yes [id number] 40mg Take 1 U nivers 40 mg 2-20 tablet by ity of tablet 00:00: mouth [place] 00 every Medical morning Branch and evening. metFORMIN 2018-05 Yes [id number] 500mg Take 1 [facility] 500 mg 2-20 tablet by ity of tablet 00:00: mouth 2 (two) Medical times Branch daily with meals. carvedilol 2018-05 Yes [id number] 3.125mg Take 1 [facility] 3.125 mg 2-20 tablet by ity of tablet 00:00: mouth 2 (two) Medical times Branch daily with meals. lisinopril 2018-05 Yes [id number] 20mg Take 1 U nivers 20 mg 2-20 tablet by ity of tablet 00:00: mouth 00 daily. Medical Branch spironolact 2018-05 Yes [id number] 25mg Take 1 [facility] one 25 mg 2-20 tablet by ity o f tablet 00:00: mouth 2 (two) Medical times Branch daily. rifAXIMin 2018-05 Yes [id number] 550mg Take 1 [facility] 550 mg 2-20 tablet by ity of tablet 00:00: mouth 2 [place] (two) Medical times Branch daily. albuterol 2018-05 Yes [id number] 2{puff} Inhale 2 [facility] 90 2-20 Puffs ity of mcg/actuati 00:00: every 6 [place] on inhaler 00 (six) Medical hours as Branch needed for Wheezing or Shortness of Breath. Pitavastati 2018-05 Yes [id number] 2mg Take 2 mg [facility] n (LIVALO) 2-20 by mouth ity o f 2 mg Tab 00:00: daily. [place] 00 Medical Branch Lancets 2018-05 Yes [id number] Use BID, U nivers Misc 2-20 DX E11.9 ity of 00:00: ([facility] 00 upon Medical insurance Branch approval) blood sugar 2018-05 Yes [id number] Use BID, [facility] diagnostic 2-20 DX E11.9 ity o f (ACCU-CHEK 00:00: ([facility] GUIDE) [address] [place] [address] Medical strip insurance Branch approval) lactulose 2018-05 Yes [id number] 15mL Take 15 mL [facility] 10 gram/15 2-20 by mouth 3 ity of mL solution 00:00: (three) [place] 00 times Medical daily. Branch hydrOXYzine 2018-05 Yes [id number] 50mg Take 1 U nivers 50 mg 2-20 tablet by ity of tablet 00:00: mouth 3 [place] 00 (three) Medical times Branch daily as needed for Itching. calcipotrie 2018-05 Yes [id number] Apply to Univers ne 0.005 % 2-20 area(s) 2 ity of cream 00:00: (two) [place] 00 times Medical daily. Branch clobetasol 2018-05 Yes [id number] Apply to [facility] 0.05 % 2-20 area(s) 2 ity of cream 00:00: (two) [place] 00 times Medical daily. Branch pantoprazol 2018-05 Yes [id number] 40mg Take 1 [facility] e 40 mg EC 2-20 tablet by ity of tablet 00:00: mouth [place] 00 daily. Medical Branch triamcinolo 2018-05 Yes [id number] Apply to Univers ne 2-20 affected ity of acetonide 00:00: area(s) 2 [place] 0.1 % cream 00 (two) Medical times Branch daily. albuterol 2018-05 Yes [id number] 2{puff} Inhale 2 [facility] 90 2-20 Puffs ity of mcg/actuati 00:00: every 6 [place] on inhaler 00 (six) Medical hours as Branch needed for Wheezing or Shortness of Breath. Lancets 2018-05 Yes [id number] Use BID, U nivers Misc 2-20 DX E11.9 ity of 00:00: ([facility] [place] 00 upon Medical insurance Branch approval) lactulose 2018-05 Yes [id number] 15mL Take 15 mL [facility] 10 gram/15 2-20 by mouth 3 ity of mL solution 00:00: (three) [place] 00 times Medical daily. Branch calcipotrie 2018-05 Yes [id number] Apply to Univers ne 0.005 % 2-20 area(s) 2 ity of cream 00:00: (two) [place] 00 times Medical daily. Branch triamcinolo 2018-05 Yes [id number] Apply to [facility] ne 2-20 affected ity of acetonide 00:00: area(s) 2 [place] 0.1 % cream 00 (two) Medical times Branch daily. furosemide 2018-05 Yes [id number] 40mg Take 1 U nivers 40 mg 2-20 tablet by ity of tablet 00:00: mouth [place] 00 every Medical morning Branch and evening. metFORMIN 2018-05 Yes [id number] 500mg Take 1 [facility] 500 mg 2-20 tablet by ity of tablet 00:00: mouth 2 (two) Medical times Branch daily with meals. carvedilol 2018-05 Yes [id number] 3.125mg Take 1 [facility] 3.125 mg 2-20 tablet by ity of tablet 00:00: mouth 2 (two) Medical times Branch daily with meals. spironolact 2018-05 Yes [id number] 25mg Take 1 [facility] one 25 mg 2-20 tablet by ity o f tablet 00:00: mouth 2 (two) Medical times Branch daily. rifAXIMin 2018-05 Yes [id number] 550mg Take 1 [facility] 550 mg 2-20 tablet by ity of tablet 00:00: mouth 2 [place] (two) Medical times Branch daily. albuterol 2018-05 Yes [id number] 2{puff} Inhale 2 [facility] 90 2-20 Puffs ity of mcg/actuati 00:00: every 6 [place] on inhaler 00 (six) Medical hours as Branch needed for Wheezing or Shortness of Breath. Pitavastati 2018-05 Yes [id number] 2mg Take 2 mg [facility] n (LIVALO) 2-20 by mouth ity o f 2 mg Tab 00:00: daily. [place] Medical Branch Lancets 2018-05 Yes [id number] Use BID, U nivers Misc 2-20 DX E11.9 ity of 00:00: ([facility] 00 upon Medical insurance Branch approval) blood sugar 2018-05 Yes [id number] Use BID, [facility] diagnostic 2-20 DX E11.9 ity o f (ACCU-CHEK 00:00: ([facility] GUIDE) [address] [place] [address] strip insurance Branch approval) lactulose 2018-05 Yes [id number] 15mL Take 15 mL [facility] 10 gram/15 2-20 by mouth 3 ity of mL solution 00:00: (three) [place] 00 times Medical daily. Branch hydrOXYzine 2018-05 Yes [id number] 50mg Take 1 U nivers 50 mg 2-20 tablet by ity of tablet 00:00: mouth 3 00 (three) Medical times Branch daily as needed for Itching. calcipotrie 2018-05 Yes [id number] Apply to Univers ne 0.005 % 2-20 area(s) 2 ity of cream 00:00: (two) [place] 00 times Medical daily. Branch pantoprazol 2018-05 Yes [id number] 40mg Take 1 [facility] e 40 mg EC 2-20 tablet by ity of tablet 00:00: mouth 00 daily. Medical Branch triamcinolo 2018-05 Yes [id number] Apply to [facility] ne 2-20 affected ity of acetonide 00:00: area(s) 2 [place] 0.1 % cream 00 (two) Medical times Branch daily. furosemide 2018-05 Yes [id number] 40mg Take 1 U nivers 40 mg 2-20 tablet by ity of tablet 00:00: mouth 00 every Medical morning Branch and evening. metFORMIN 2018-05 Yes [id number] 500mg Take 1 [facility] 500 mg 2-20 tablet by ity of tablet 00:00: mouth 2 (two) Medical times Branch daily with meals. carvedilol 2018-05 Yes [id number] 3.125mg Take 1 [facility] 3.125 mg 2-20 tablet by ity of tablet 00:00: mouth (two) Medical times Branch daily with meals. spironolact 2018-05 Yes [id number] 25mg Take 1 [facility] one 25 mg 2-20 tablet by ity o f tablet 00:00: mouth 2 (two) Medical times Branch daily. rifAXIMin 2018-05 Yes [id number] 550mg Take 1 [facility] 550 mg 2-20 tablet by ity of tablet 00:00: mouth 2 (two) Medical times Branch daily. albuterol 2018-05 Yes [id number] 2{puff} Inhale 2 [facility] 90 2-20 Puffs ity of mcg/actuati 00:00: every 6 [place] on inhaler 00 (six) Medical hours as Branch needed for Wheezing or Shortness of Breath. Pitavastati 2018-05 Yes [id number] 2mg Take 2 mg [facility] n (LIVALO) 2-20 by mouth ity o f 2 mg Tab 00:00: daily. [place] 00 Medical Branch Lancets 2018-05 Yes [id number] Use BID, U nivers Misc 2-20 DX E11.9 ity of 00:00: ([facility] 00 upon Medical insurance Branch approval) blood sugar 2018-05 Yes [id number] Use BID, [facility] diagnostic 2-20 DX E11.9 ity o f (ACCU-CHEK 00:00: ([facility] GUIDE) 00 upon Medical strip insurance Branch approval) lactulose 2018-05 Yes [id number] 15mL Take 15 mL [facility] 10 gram/15 2-20 by mouth 3 ity of mL solution 00:00: (three) [place] 00 times Medical daily. Branch hydrOXYzine 2018-05 Yes [id number] 50mg Take 1 [facility] n[facility] 50 mg 2-20 tablet by ity of tablet 00:00: mouth 3 [place] 00 (three) Medical times Branch daily as needed for Itching. calcipotrie 2018-05 Yes [id number] Apply to [facility] ne 0.005 % 2-20 area(s) 2 ity of cream 00:00: (two) [place] 00 times Medical daily. Branch pantoprazol 2018-05 Yes [id number] 40mg Take 1 [facility] e 40 mg EC 2-20 tablet by ity of tablet 00:00: mouth [place] 00 daily. Medical Branch triamcinolo 2018-05 Yes [id number] Apply to [facility] ne 2-20 affected ity of acetonide 00:00: area(s) 2 [place] 0.1 % cream 00 (two) Medical times Branch daily. furosemide 2018-05 Yes [id number] 40mg Take 1 [facility] n[facility] 40 mg 2-20 tablet by ity of tablet 00:00: mouth [place] 00 every Medical morning Branch and evening. metFORMIN 2018-05 Yes [id number] 500mg Take 1 [facility] 500 mg 2-20 tablet by ity of tablet 00:00: mouth 2 [place] 00 (two) Medical times Branch daily with meals. carvedilol 2018-05 Yes [id number] 3.125mg Take 1 [facility] 3.125 mg 2-20 tablet by ity of tablet 00:00: mouth 2 [place] 00 (two) Medical times Branch daily with meals. spironolact 2018-05 Yes [id number] 25mg Take 1 [facility] one 25 mg 2-20 tablet by ity o f tablet 00:00: mouth 2 [place] 00 (two) Medical times Branch daily. rifAXIMin 2018-05 Yes [id number] 550mg Take 1 [facility] 550 mg 2-20 tablet by ity of tablet 00:00: mouth 2 [place] 00 (two) Medical times Branch daily. albuterol 2018-05 Yes [id number] 2{puff} Inhale 2 [facility] 90 2-20 Puffs ity of mcg/actuati 00:00: every 6 [place] on inhaler 00 (six) Medical hours as Branch needed for Wheezing or Shortness of Breath. Pitavastati 2018-05 Yes [id number] 2mg Take 2 mg [facility] n (LIVALO) 2-20 by mouth ity o f 2 mg Tab 00:00: daily. [place] 00 Medical Branch Lancets 2018- Yes [id number] Use BID, [facility] nivers Misc 2-20 DX E11.9 ity of 00:00: ([facility] [place] 00 upon Medical insurance Branch approval) blood sugar 2018-05 Yes [id number] Use BID, [facility] diagnostic 2-20 DX E11.9 ity o f (ACCU-CHEK 00:00: (Brand [place] GUIDE) 00 upon Medical strip insurance Branch approval) lactulose 2018-05 Yes [id number] 15mL Take 15 mL [facility] 10 gram/15 2-20 by mouth 3 ity of mL solution 00:00: (three) [place] 00 times Medical daily. Branch hydrOXYzine 2018-05 Yes [id number] 50mg Take 1 [facility] nivers 50 mg 2-20 tablet by ity of tablet 00:00: mouth 3 [place] 00 (three) Medical times Branch daily as needed for Itching. calcipotrie 2018-05 Yes [id number] Apply to [facility] ne 0.005 % 2-20 area(s) 2 ity of cream 00:00: (two) [place] 00 times Medical daily. Branch pantoprazol 2018-05 Yes [id number] 40mg Take 1 [facility] e 40 mg EC 2-20 tablet by ity of tablet 00:00: mouth [place] 00 daily. Medical Branch triamcinolo 2018- Yes [id number] Apply to [facility] ne 2-20 affected ity of acetonide 00:00: area(s) 2 [place] 0.1 % cream 00 (two) Medical times Branch daily. albuterol 2018-05 Yes [id number] 2{puff} Inhale 2 [facility] 90 2-20 Puffs ity of mcg/actuati 00:00: every 6 [place] on inhaler 00 (six) Medical hours as Branch needed for Wheezing or Shortness of Breath. Lancets 2018-05 Yes [id number] Use BID, [facility] nivers Misc 2-20 DX E11.9 ity of 00:00: (Brand [place] 00 upon Medical insurance Branch approval) lactulose 2018-05 Yes [id number] 15mL Take 15 mL [facility] 10 gram/15 2-20 by mouth 3 ity of mL solution 00:00: (three) [place] 00 times Medical daily. Branch calcipotrie 2018-05 Yes [id number] Apply to [facility] ne 0.005 % 2-20 area(s) 2 ity of cream 00:00: (two) [place] 00 times Medical daily. Branch triamcinolo 2018-05 Yes [id number] Apply to [facility] ne 2-20 affected ity of acetonide 00:00: area(s) 2 [place] 0.1 % cream 00 (two) Medical times Branch daily. albuterol 2018-05 Yes [id number] 2{puff} Inhale 2 [facility] 90 2-20 Puffs ity of mcg/actuati 00:00: every 6 [place] on inhaler 00 (six) Medical hours as Branch needed for Wheezing or Shortness of Breath. Lancets 2018-05 Yes [id number] Use BID, [facility] nivers Misc 2-20 DX E11.9 ity of 00:00: (Brand [address] Branch approval) lactulose 2018-05 Yes [id number] 15mL Take 15 mL [facility] 10 gram/15 2-20 by mouth 3 ity of mL solution 00:00: (three) [place] 00 times Medical daily. Branch calcipotrie 2018-05 Yes [id number] Apply to [facility] ne 0.005 % 2-20 area(s) 2 ity of cream 00:00: (two) [place] 00 times Medical daily. Branch triamcinolo 2018-05 Yes [id number] Apply to [facility] ne 2-20 affected ity of acetonide 00:00: area(s) 2 [place] 0.1 % cream 00 (two) Medical times Branch daily. albuterol 2018-05 Yes [id number] 2{puff} Inhale 2 [facility] 90 2-20 Puffs ity of mcg/actuati 00:00: every 6 [place] on inhaler 00 (six) Medical hours as Branch needed for Wheezing or Shortness of Breath. Lancets 2018-05 Yes [id number] Use BID, U nivers Misc 2-20 DX E11.9 ity of 00:00: (Brand [address] Branch approval) lactulose 2018-05 Yes [id number] 15mL Take 15 mL [facility] 10 gram/15 2-20 by mouth 3 ity of mL solution 00:00: (three) [place] 00 times Medical daily. Branch calcipotrie 2018-05 Yes [id number] Apply to [facility] ne 0.005 % 2-20 area(s) 2 ity of cream 00:00: (two) [place] 00 times Medical daily. Branch triamcinolo 2018-05 Yes [id number] Apply to [facility] ne 2-20 affected ity of acetonide 00:00: area(s) 2 [place] 0.1 % cream 00 (two) Medical times Branch daily. albuterol 2018-05 Yes [id number] 2{puff} Inhale 2 [facility] 90 2-20 Puffs ity of mcg/actuati 00:00: every 6 [place] on inhaler 00 (six) Medical hours as Branch needed for Wheezing or Shortness of Breath. Lancets 2018-05 Yes [id number] Use BID, U nivers Misc 2-20 DX E11.9 ity of 00:00: (Brand [address] insurance Branch approval) lactulose 2018-05 Yes [id number] 15mL Take 15 mL [facility] 10 gram/15 2-20 by mouth 3 ity of mL solution 00:00: (three) [place] 00 times Medical daily. Branch calcipotrie 2018-05 Yes [id number] Apply to [facility] ne 0.005 % 2-20 area(s) 2 ity of cream 00:00: (two) [place] 00 times Medical daily. Branch triamcinolo 2018-05 Yes [id number] Apply to [facility] ne 2-20 affected ity of acetonide 00:00: area(s) 2 [place] 0.1 % cream 00 (two) Medical times Branch daily. albuterol 2018-05 Yes [id number] 2{puff} Inhale 2 [facility] 90 2-20 Puffs ity of mcg/actuati 00:00: every 6 [place] on inhaler 00 (six) Medical hours as Branch needed for Wheezing or Shortness of Breath. Lancets 2018-05 Yes [id number] Use BID, U nivers Misc 2-20 DX E11.9 ity of 00:00: (Brand [address] Medical insurance Branch approval) lactulose 2018-05 Yes [id number] 15mL Take 15 mL [facility] 10 gram/15 2-20 by mouth 3 ity of mL solution 00:00: (three) [place] 00 times Medical daily. Branch calcipotrie 2018-05 Yes [id number] Apply to [facility] ne 0.005 % 2-20 area(s) 2 ity of cream 00:00: (two) [place] 00 times Medical daily. Branch triamcinolo 2018-05 Yes [id number] Apply to [facility] ne 2-20 affected ity of acetonide 00:00: area(s) 2 [place] 0.1 % cream 00 (two) Medical times Branch daily. albuterol 2018-05 Yes [id number] 2{puff} Inhale 2 [facility] 90 2-20 Puffs ity of mcg/actuati 00:00: every 6 [place] on inhaler 00 (six) Medical hours as Branch needed for Wheezing or Shortness of Breath. Lancets 2018-05 Yes [id number] Use BID, U nivers Misc 2-20 DX E11.9 ity of 00:00: (Brand [address] Branch approval) lactulose 2018-05 Yes [id number] 15mL Take 15 mL [facility] 10 gram/15 2-20 by mouth 3 ity of mL solution 00:00: (three) [place] 00 times Medical daily. Branch calcipotrie 2018-05 Yes [id number] Apply to [facility] ne 0.005 % 2-20 area(s) 2 ity of cream 00:00: (two) [place] 00 times Medical daily. Branch triamcinolo 2018-05 Yes [id number] Apply to [facility] ne 2-20 affected ity of acetonide 00:00: area(s) 2 [place] 0.1 % cream 00 (two) Medical times Branch daily. albuterol 2018-05 Yes [id number] 2{puff} Inhale 2 [facility] 90 2-20 Puffs ity of mcg/actuati 00:00: every 6 [place] on inhaler 00 (six) Medical hours as Branch needed for Wheezing or Shortness of Breath. Lancets 2018-05 Yes [id number] Use BID, U nivers Misc 2-20 DX E11.9 ity of 00:00: (Brand [address] insurance Branch approval) lactulose 2018-05 Yes [id number] 15mL Take 15 mL [facility] 10 gram/15 2-20 by mouth 3 ity of mL solution 00:00: (three) [place] 00 times Medical daily. Branch calcipotrie 2018-05 Yes [id number] Apply to [facility] ne 0.005 % 2-20 area(s) 2 ity of cream 00:00: (two) [place] 00 times Medical daily. Branch triamcinolo 2018-05 Yes [id number] Apply to [facility] ne 2-20 affected ity of acetonide 00:00: area(s) 2 [place] 0.1 % cream 00 (two) Medical times Branch daily. albuterol 2018-05 Yes [id number] 2{puff} Inhale 2 [facility] 90 2-20 Puffs ity of mcg/actuati 00:00: every 6 [place] [facility] on inhaler 00 (six) Medical hours as Branch needed for Wheezing or Shortness of Breath. Lancets 2018-05 Yes [id number] Use BID, U nivers Misc 2-20 DX E11.9 ity of 00:00: (Brand [address] Medical insurance Branch approval) lactulose 2018-05 Yes [id number] 15mL Take 15 mL [facility] 10 gram/15 2-20 by mouth 3 ity of mL solution 00:00: (three) [place] 00 times Medical daily. Branch calcipotrie 2018-05 Yes [id number] Apply to [facility] ne 0.005 % 2-20 area(s) 2 ity of cream 00:00: (two) [place] 00 times Medical daily. Branch triamcinolo 2018-05 Yes [id number] Apply to [facility] ne 2-20 affected ity of acetonide 00:00: area(s) 2 [place] 0.1 % cream 00 (two) Medical times Branch daily. albuterol 2018-05 Yes [id number] 2{puff} Inhale 2 [facility] 90 2-20 Puffs ity of mcg/actuati 00:00: every 6 [place] [facility] on inhaler 00 (six) Medical hours as Branch needed for Wheezing or Shortness of Breath. Lancets 2018-05 Yes [id number] Use BID, U nivers Misc 2-20 DX E11.9 ity of 00:00: (Brand [address] Medical insurance Branch approval) lactulose 2018-05 Yes [id number] 15mL Take 15 mL [facility] 10 gram/15 2-20 by mouth 3 ity of mL solution 00:00: (three) [place] 00 times Medical daily. Branch calcipotrie 2018-05 Yes [id number] Apply to [facility] ne 0.005 % 2-20 area(s) 2 ity of cream 00:00: (two) [place] 00 times Medical daily. Branch triamcinolo 2018-05 Yes [id number] Apply to [facility] ne 2-20 affected ity of acetonide 00:00: area(s) 2 [place] 0.1 % cream 00 (two) Medical times Branch daily. albuterol 2018-05 Yes [id number] 2{puff} Inhale 2 [facility] 90 2-20 Puffs ity of mcg/actuati 00:00: every 6 [place] on inhaler 00 (six) Medical hours as Branch needed for Wheezing or Shortness of Breath. Lancets 2018-05 Yes [id number] Use BID, U nivers Misc 2-20 DX E11.9 ity of 00:00: (Brand [place] 00 upon Medical insurance Branch approval) lactulose 2018-05 Yes [id number] 15mL Take 15 mL [facility] 10 gram/15 2-20 by mouth 3 ity of mL solution 00:00: (three) [place] 00 times Medical daily. Branch calcipotrie 2018-05 Yes [id number] Apply to [facility] ne 0.005 % 2-20 area(s) 2 ity of cream 00:00: (two) [place] 00 times Medical daily. Branch triamcinolo 2018-05 Yes [id number] Apply to [facility] ne 2-20 affected ity of acetonide 00:00: area(s) 2 [place] 0.1 % cream 00 (two) Medical times Branch daily. furosemide 2018-05- No [id number] 40mg Take 1 [facility] 40 mg 2-20 05-19 tablet by ity of tablet 00:00: 00:00 mouth [place] 00 :00 every Medical morning Branch and evening. metFORMIN 2018-05- No [id number] 500mg Take 1 [facility] 500 mg 2-20 05-19 tablet by ity of tablet 00:00: 00:00 mouth 2 [place] 00 :00 (two) Medical times Branch daily with meals. carvedilol 2018-05- No [id number] 3.125mg Take 1 [facility] 3.125 mg 2-20 05-19 tablet by ity o f tablet 00:00: 00:00 mouth 2 [place] 00 :00 (two) Medical times Branch daily with meals. spironolact 2018-05- No [id number] 25mg Take 1 [facility] one 25 mg 2-20 05-19 tablet by ity of tablet 00:00: 00:00 mouth 2 [place] 00 :00 (two) Medical times Branch daily. rifAXIMin 2018-05- No [id number] 550mg Take 1 [facility] 550 mg 2-20 05-19 tablet by ity of tablet 00:00: 00:00 mouth 2 [place] 00 :00 (two) Medical times Branch daily. Pitavastati 2018-05- No [id number] 2mg Take 2 mg [facility] n (LIVALO) 2-20 05-19 by mouth ity of 2 mg Tab 00:00: 00:00 daily. [place] 00 :00 Medical Branch blood sugar 2018-05- No [id number] Use BID, [facility] diagnostic 2-20 05-19 DX E11.9 ity of (ACCU-CHEK 00:00: 00:00 (Brand [place] GUIDE[place] 00 :00 upon Medical strip insurance Branch approval) hydrOXYzine 2018-05- No [id number] 50mg Take 1 [facility] 50 mg 2-20 05-19 tablet by ity of tablet 00:00: 00:00 mouth 3 [place] 00 :00 (three) Medical times Branch daily as needed for Itching. pantoprazol 2018-05- No [id number] 40mg Take 1 [facility] e 40 mg EC 2-20 05-19 tablet by ity of tablet 00:00: 00:00 mouth [place] 00 :00 daily. Medical Branch furosemide 2018-05- No [id number] 40mg Take 1 [facility] 40 mg 2-20 05-19 tablet by ity of tablet 00:00: 00:00 mouth [place] 00 :00 every Medical morning Branch and evening. metFORMIN 2018-05- No [id number] 500mg Take 1 [facility] 500 mg 2-20 05-19 tablet by ity of tablet 00:00: 00:00 mouth 2 [place] 00 :00 (two) Medical times Branch daily with meals. carvedilol 2018-05- No [id number] 3.125mg Take 1 [facility] 3.125 mg 2-20 05-19 tablet by ity o f tablet 00:00: 00:00 mouth 2 [place] 00 :00 (two) Medical times Branch daily with meals. spironolact 2018-05- No [id number] 25mg Take 1 [facility] one 25 mg -10-14 tablet by ity of tablet 00:00: 00:00 mouth 2 [place] 00 :00 (two) Medical times Branch daily. rifAXIMin 2018-05- No [id number] 550mg Take 1 [facility] 550 mg -10-14 tablet by ity of tablet 00:00: 00:00 mouth 2 [place] 00 :00 (two) Medical times Branch daily. Pitavastati 2018-05- No [id number] 2mg Take 2 mg [facility] n (LIVALO) 07-18 by mouth ity of 2 mg Tab 00:00: 00:00 daily. [place] 00 :00 Medical Branch blood sugar 2018-05- No [id number] Use BID, [facility] diagnostic 07-18 DX E11.9 ity of (ACCU-CHEK 00:00: 00:00 (Brand [place] 00 :00 upon Medical strip insurance Branch approval) hydrOXYzine 2018-05- No [id number] 50mg Take 1 [facility] 50 mg 07-18 tablet by ity of tablet 00:00: 00:00 mouth 3 [place] 00 :00 (three) Medical times Branch daily as needed for Itching. pantoprazol 2018-05- No [id number] 40mg Take 1 [facility] e 40 mg EC 07-18 tablet by ity of tablet 00:00: 00:00 mouth [place] 00 :00 daily. Medical Branch lisinopril 2018-05- No [id number] 20mg Take 1 [facility] 20 mg -08-04 tablet by ity of tablet 00:00: 00:00 mouth [place] 00 :00 daily. Medical Branch foLIC acid 2018-05- No [id number] 1mg Take 1 [facility] 1 mg tablet 07-18 tablet by it y of 00:00: 00:00 mouth [place] 00 :00 daily. Medical Branch foLIC acid 2018-05- No [id number] 1mg Take 1 [facility] 1 mg tablet 07-18 tablet by it y of 00:00: 00:00 mouth [place] 00 :00 daily. Medical Branch doxycycline 2019-0 Yes [id number] 100mg Take 1 [facility] 100 mg 8-29 tablet by ity of tablet 00:00: mouth 2 [place] 00 (two) Medical times Branch daily. doxycycline 2019- Yes [id number] 100mg Take 1 [facility] 100 mg 8-29 tablet by ity of tablet 00:00: mouth 2 [place] 00 (two) Medical times Branch daily. doxycycline 2019-0 Yes [id number] 100mg Take 1 [facility] 100 mg 8-29 tablet by ity of tablet 00:00: mouth 2 [place] 00 (two) Medical times Branch daily. doxycycline 2019-0 Yes [id number] 100mg Take 1 [facility] 100 mg 8-29 tablet by ity of tablet 00:00: mouth 2 [place] 00 (two) Medical times Branch daily. doxycycline 2019- Yes [id number] 100mg Take 1 [facility] 100 mg 8-29 tablet by ity of tablet 00:00: mouth 2 [place] 00 (two) Medical times Branch daily. doxycycline 2019-0 Yes [id number] 100mg Take 1 [facility] 100 mg 8-29 tablet by ity of tablet 00:00: mouth 2 [place] 00 (two) Medical times Branch daily. doxycycline 2019- Yes [id number] 100mg Take 1 [facility] 100 mg 8-29 tablet by ity of tablet 00:00: mouth 2 [place] 00 (two) Medical times Branch daily. doxycycline 2018- Yes [id number] 100mg Take 1 [facility] 100 mg 8-29 tablet by ity of tablet 00:00: mouth 2 [place] 00 (two) Medical times Branch daily. doxycycline 2019-0 Yes [id number] 100mg Take 1 [facility] 100 mg 8-29 tablet by ity of tablet 00:00: mouth 2 [place] 00 (two) Medical times Branch daily. doxycycline 2019- Yes [id number] 100mg Take 1 [facility] 100 mg 8-29 tablet by ity of tablet 00:00: mouth 2 [place] 00 (two) Medical times Branch daily. doxycycline 2020- No [id number] 100mg Take 1 [facility] 100 mg 8-29 05-19 tablet by ity of tablet 00:00: 00:00 mouth 2 [place] 00 :00 (two) Medical times Branch daily. doxycycline 2018-2020- No [id number] 100mg Take 1 [facility] 100 mg 8-29 05-19 tablet by ity of tablet 00:00: 00:00 mouth 2 [place] 00 :00 (two) Medical times Branch daily. spironolact 2019- Yes [id number] 25mg Take 1 [facility] one 25 mg 8-07 tablet by ity o f tablet 00:00: mouth 2 [place] 00 (two) Medical times Branch daily. spironolact 2019-0 Yes [id number] 25mg Take 1 [facility] one 25 mg 8-07 tablet by ity o f tablet 00:00: mouth (two) Medical times Branch daily. spironolact 2018-0 Yes [id number] 25mg Take 1 [facility] one 25 mg 8-07 tablet by ity o f tablet 00:00: mouth (two) Medical times Branch daily. spironolact 2018-0 Yes [id number] 25mg Take 1 [facility] one 25 mg 8-07 tablet by ity o f tablet 00:00: mouth (two) Medical times Branch daily. spironolact 2018-0 Yes [id number] 25mg Take 1 [facility] one 25 mg 8-07 tablet by ity o f tablet 00:00: mouth (two) Medical times Branch daily. spironolact 2018- Yes [id number] 25mg Take 1 [facility] one 25 mg 8-07 tablet by ity o f tablet 00:00: mouth (two) Medical times Branch daily. spironolact Yes [id number] 25mg Take 1 [facility] one 25 mg 8-07 tablet by ity o f tablet 00:00: mouth (two) Medical times Branch daily. spironolact 2018-0 Yes [id number] 25mg Take 1 [facility] one 25 mg 8-07 tablet by ity o f tablet 00:00: mouth (two) Medical times Branch daily. spironolact 0 Yes [id number] 25mg Take 1 [facility] one 25 mg 8-07 tablet by ity o f tablet 00:00: mouth (two) Medical times Branch daily. spironolact 2018-0 Yes [id number] 25mg Take 1 [facility] one 25 mg 8-07 tablet by ity o f tablet 00:00: mouth (two) Medical times Branch daily. ALPRAZolam 2018- Yes [id number] 1mg Take 1 [facility] 1 mg tablet 7-22 tablet by ity of 00:00: mouth 2 (two) Medical times Branch daily. Prn anxiety carvedilol 2018- Yes [id number] 3.125mg Take 1 [facility] 3.125 mg 7-22 tablet by ity of tablet 00:00: mouth 2 (two) Medical times Branch daily with meals. foLIC acid Yes [id number] 1mg Take 1 [facility] 1 mg tablet 7-22 tablet by ity of 00:00: mouth [place] 00 daily. Medical Branch furosemide Yes [id number] 40mg Take 1 [facility] 40 mg 7-22 tablet by ity of tablet 00:00: mouth [place] 00 daily. Medical Branch hydrOXYzine Yes [id number] 50mg Take 1 [facility] 50 mg 7-22 tablet by ity of tablet 00:00: mouth 3 (three) Medical times Branch daily as needed for Itching. metFORMIN 2018- Yes [id number] 500mg Take 1 [facility] 500 mg 7-22 tablet by ity of tablet 00:00: mouth 2 (two) Medical times Branch daily with meals. pantoprazol Yes [id number] 40mg Take 1 [facility] e 40 mg EC 7-22 tablet by ity of tablet 00:00: mouth 00 daily. Medical Branch clobetasol Yes [id number] Apply to [facility] 0.05 % 7-22 area(s) 2 ity of cream 00:00: (two) 00 times Medical daily. Branch triamcinolo Yes [id number] Apply to [facility] ne 7-22 affected ity of acetonide 00:00: area(s) 2 [place] 0.1 % cream 00 (two) Medical times Branch daily. ALPRAZolam Yes [id number] 1mg Take 1 [facility] 1 mg tablet 7-22 tablet by ity of 00:00: mouth 2 (two) Medical times Branch daily. Prn anxiety carvedilol 2018- Yes [id number] 3.125mg Take 1 [facility] 3.125 mg 7-22 tablet by ity of tablet 00:00: mouth 2 00 (two) Medical times Branch daily with meals. foLIC acid Yes [id number] 1mg Take 1 [facility] 1 mg tablet 7-22 tablet by ity of 00:00: mouth [place] 00 daily. Medical Branch furosemide Yes [id number] 40mg Take 1 [facility] 40 mg 7-22 tablet by ity of tablet 00:00: mouth [place] 00 daily. Medical Branch hydrOXYzine 2019- Yes [id number] 50mg Take 1 [facility] 50 mg 7-22 tablet by ity of tablet 00:00: mouth 3 (three) Medical times Branch daily as needed for Itching. metFORMIN 2018- Yes [id number] 500mg Take 1 [facility] 500 mg 7-22 tablet by ity of tablet 00:00: mouth 2 (two) Medical times Branch daily with meals. pantoprazol 2018- Yes [id number] 40mg Take 1 [facility] e 40 mg EC 7-22 tablet by ity of tablet 00:00: mouth 00 daily. Medical Branch clobetasol 2018- Yes [id number] Apply to [facility] 0.05 % 7-22 area(s) 2 ity of cream 00:00: (two) 00 times Medical daily. Branch triamcinolo Yes [id number] Apply to [facility] ne 7-22 affected ity of acetonide 00:00: area(s) 2 [place] 0.1 % cream 00 (two) Medical times Branch daily. ALPRAZolam 2018- Yes [id number] 1mg Take 1 [facility] 1 mg tablet 7-22 tablet by ity of 00:00: mouth 2 (two) Medical times Branch daily. Prn anxiety carvedilol 2018- Yes [id number] 3.125mg Take 1 [facility] 3.125 mg 7-22 tablet by ity of tablet 00:00: mouth 2 (two) Medical times Branch daily with meals. foLIC acid 2018- Yes [id number] 1mg Take 1 [facility] 1 mg tablet 7-22 tablet by ity of 00:00: mouth 00 daily. Medical Branch furosemide 2018-0 Yes [id number] 40mg Take 1 [facility] 40 mg 7-22 tablet by ity of tablet 00:00: mouth 00 daily. Medical Branch hydrOXYzine 2018-0 Yes [id number] 50mg Take 1 [facility] 50 mg 7-22 tablet by ity of tablet 00:00: mouth 3 (three) Medical times Branch daily as needed for Itching. metFORMIN 2018- Yes [id number] 500mg Take 1 [facility] 500 mg 7-22 tablet by ity of tablet 00:00: mouth 2 (two) Medical times Branch daily with meals. pantoprazol 2018- Yes [id number] 40mg Take 1 [facility] e 40 mg EC 7-22 tablet by ity of tablet 00:00: mouth [place] 00 daily. Medical Branch clobetasol Yes [id number] Apply to [facility] 0.05 % 7-22 area(s) 2 ity of cream 00:00: (two) [place] 00 times Medical daily. Branch triamcinolo Yes [id number] Apply to [facility] ne 7-22 affected ity of acetonide 00:00: area(s) 2 [place] 0.1 % cream 00 (two) Medical times Branch daily. ALPRAZolam 2018- Yes [id number] 1mg Take 1 [facility] 1 mg tablet 7-22 tablet by ity of 00:00: mouth 2 [place] 00 (two) Medical times Branch daily. Prn anxiety carvedilol 2018- Yes [id number] 3.125mg Take 1 [facility] 3.125 mg 7-22 tablet by ity of tablet 00:00: mouth 2 [place] 00 (two) Medical times Branch daily with meals. foLIC acid Yes [id number] 1mg Take 1 [facility] 1 mg tablet 7-22 tablet by ity of 00:00: mouth [place] 00 daily. Medical Branch furosemide 2018- Yes [id number] 40mg Take 1 [facility] 40 mg 7-22 tablet by ity of tablet 00:00: mouth [place] 00 daily. Medical Branch hydrOXYzine Yes [id number] 50mg Take 1 [facility] 50 mg 7-22 tablet by ity of tablet 00:00: mouth 3 [place] 00 (three) Medical times Branch daily as needed for Itching. metFORMIN Yes [id number] 500mg Take 1 [facility] 500 mg 7-22 tablet by ity of tablet 00:00: mouth 2 [place] 00 (two) Medical times Branch daily with meals. pantoprazol 2018- Yes [id number] 40mg Take 1 [facility] e 40 mg EC 7-22 tablet by ity of tablet 00:00: mouth [place] 00 daily. Medical Branch clobetasol Yes [id number] Apply to [facility] 0.05 % 7-22 area(s) 2 ity of cream 00:00: (two) [place] 00 times Medical daily. Branch triamcinolo Yes [id number] Apply to [facility] ne 7-22 affected ity of acetonide 00:00: area(s) 2 [place] 0.1 % cream 00 (two) Medical times Branch daily. ALPRAZolam Yes [id number] 1mg Take 1 [facility] 1 mg tablet 7-22 tablet by ity of 00:00: mouth 2 (two) Medical times Branch daily. Prn anxiety carvedilol Yes [id number] 3.125mg Take 1 [facility] 3.125 mg 7-22 tablet by ity of tablet 00:00: mouth 2 (two) Medical times Branch daily with meals. foLIC acid Yes [id number] 1mg Take 1 [facility] 1 mg tablet 7-22 tablet by ity of 00:00: mouth [place] 00 daily. Medical Branch hydrOXYzine Yes [id number] 50mg Take 1 [facility] 50 mg 7-22 tablet by ity of tablet 00:00: mouth 3 (three) Medical times Branch daily as needed for Itching. metFORMIN 2018- Yes [id number] 500mg Take 1 [facility] 500 mg 7-22 tablet by ity of tablet 00:00: mouth 2 (two) Medical times Branch daily with meals. pantoprazol Yes [id number] 40mg Take 1 [facility] e 40 mg EC 7-22 tablet by ity of tablet 00:00: mouth 00 daily. Medical Branch clobetasol Yes [id number] Apply to [facility] 0.05 % 7-22 area(s) 2 ity of cream 00:00: (two) 00 times Medical daily. Branch triamcinolo Yes [id number] Apply to [facility] ne 7-22 affected ity of acetonide 00:00: area(s) 2 [place] 0.1 % cream 00 (two) Medical times Branch daily. ALPRAZolam Yes [id number] 1mg Take 1 [facility] 1 mg tablet 7-22 tablet by ity of 00:00: mouth 2 (two) Medical times Branch daily. Prn anxiety carvedilol Yes [id number] 3.125mg Take 1 [facility] 3.125 mg 7-22 tablet by ity of tablet 00:00: mouth 2 00 (two) Medical times Branch daily with meals. foLIC acid Yes [id number] 1mg Take 1 [facility] 1 mg tablet 7-22 tablet by ity of 00:00: mouth [place] 00 daily. Medical Branch hydrOXYzine 2018- Yes [id number] 50mg Take 1 [facility] 50 mg 7-22 tablet by [facility]y of tablet 00:00: mouth 3 (three) Medical times Branch daily as needed for Itching. metFORMIN 2018- Yes [id number] 500mg Take 1 [facility] 500 mg 7-22 tablet by ity of tablet 00:00: mouth 2 (two) Medical times Branch daily with meals. pantoprazol Yes [id number] 40mg Take 1 [facility] e 40 mg EC 7-22 tablet by ity of tablet 00:00: mouth 00 daily. Medical Branch clobetasol Yes [id number] Apply to [facility] 0.05 % 7-22 area(s) 2 ity of cream 00:00: (two) times Medical daily. Branch triamcinolo Yes [id number] Apply to [facility] ne 7-22 affected ity of acetonide 00:00: area(s) 2 [place] 0.1 % cream 00 (two) Medical times Branch daily. ALPRAZolam Yes [id number] 1mg Take 1 [facility] 1 mg tablet 7-22 tablet by ity of 00:00: mouth 2 (two) Medical times Branch daily. Prn anxiety carvedilol 2018- Yes [id number] 3.125mg Take 1 [facility] 3.125 mg 7-22 tablet by ity of tablet 00:00: mouth 2 (two) Medical times Branch daily with meals. foLIC acid Yes [id number] 1mg Take 1 [facility] 1 mg tablet 7-22 tablet by ity of 00:00: mouth 00 daily. Medical Branch hydrOXYzine 2018- Yes [id number] 50mg Take 1 [facility] 50 mg 7-22 tablet by ity of tablet 00:00: mouth 3 (three) Medical times Branch daily as needed for Itching. metFORMIN Yes [id number] 500mg Take 1 [facility] 500 mg 7-22 tablet by ity of tablet 00:00: mouth 2 (two) Medical times Branch daily with meals. pantoprazol 2018- Yes [id number] 40mg Take 1 [facility] e 40 mg EC 7-22 tablet by ity of tablet 00:00: mouth 00 daily. Medical Branch clobetasol 2018- Yes [id number] Apply to [facility] 0.05 % 7-22 area(s) 2 ity of cream 00:00: (two) [place] 00 times Medical daily. Branch triamcinolo Yes [id number] Apply to [facility] ne 7-22 affected ity of acetonide 00:00: area(s) 2 [place] 0.1 % cream 00 (two) Medical times Branch daily. ALPRAZolam Yes [id number] 1mg Take 1 [facility] 1 mg tablet 7-22 tablet by ity of 00:00: mouth 2 [place] 00 (two) Medical times Branch daily. Prn anxiety carvedilol Yes [id number] 3.125mg Take 1 [facility] 3.125 mg 7-22 tablet by ity of tablet 00:00: mouth 2 (two) Medical times Branch daily with meals. foLIC acid Yes [id number] 1mg Take 1 [facility] 1 mg tablet 7-22 tablet by ity of 00:00: mouth [place] 00 daily. Medical Branch hydrOXYzine Yes [id number] 50mg Take 1 [facility] 50 mg 7-22 tablet by ity of tablet 00:00: mouth 3 [place] (three) Medical times Branch daily as needed for Itching. metFORMIN Yes [id number] 500mg Take 1 [facility] 500 mg 7-22 tablet by ity of tablet 00:00: mouth 2 (two) Medical times Branch daily with meals. pantoprazol Yes [id number] 40mg Take 1 [facility] e 40 mg EC 7-22 tablet by ity of tablet 00:00: mouth [place] 00 daily. Medical Branch clobetasol Yes [id number] Apply to [facility] 0.05 % 7-22 area(s) 2 ity of cream 00:00: (two) [place] 00 times Medical daily. Branch triamcinolo Yes [id number] Apply to [facility] ne 7-22 affected ity of acetonide 00:00: area(s) 2 [place] 0.1 % cream 00 (two) Medical times Branch daily. ALPRAZolam Yes [id number] 1mg Take 1 [facility] 1 mg tablet 7-22 tablet by ity of 00:00: mouth 2 [place] 00 (two) Medical times Branch daily. Prn anxiety carvedilol 2018- Yes [id number] 3.125mg Take 1 [facility] 3.125 mg 7-22 tablet by ity of tablet 00:00: mouth 2 (two) Medical times Branch daily with meals. foLIC acid 2018- Yes [id number] 1mg Take 1 [facility] 1 mg tablet 7-22 tablet by ity of 00:00: mouth [place] 00 daily. Medical Branch hydrOXYzine 2018- Yes [id number] 50mg Take 1 [facility] 50 mg 7-22 tablet by ity of tablet 00:00: mouth 3 (three) Medical times Branch daily as needed for Itching. metFORMIN Yes [id number] 500mg Take 1 [facility] 500 mg 7-22 tablet by ity of tablet 00:00: mouth 2 (two) Medical times Branch daily with meals. pantoprazol 2018- Yes [id number] 40mg Take 1 [facility] e 40 mg EC 7-22 tablet by ity of tablet 00:00: mouth 00 daily. Medical Branch clobetasol Yes [id number] Apply to [facility] 0.05 % 7-22 area(s) 2 ity of cream 00:00: (two) 00 times Medical daily. Branch triamcinolo Yes [id number] Apply to [facility] ne 7-22 affected ity of acetonide 00:00: area(s) 2 [place] 0.1 % cream 00 (two) Medical times Branch daily. ALPRAZolam Yes [id number] 1mg Take 1 [facility] 1 mg tablet 7-22 tablet by ity of 00:00: mouth 2 (two) Medical times Branch daily. Prn anxiety carvedilol 2018- Yes [id number] 3.125mg Take 1 [facility] 3.125 mg 7-22 tablet by ity of tablet 00:00: mouth 2 (two) Medical times Branch daily with meals. foLIC acid 2018- Yes [id number] 1mg Take 1 [facility] 1 mg tablet 7-22 tablet by ity of 00:00: mouth [place] 00 daily. Medical Branch hydrOXYzine Yes [id number] 50mg Take 1 [facility] 50 mg 7-22 tablet by ity of tablet 00:00: mouth 3 00 (three) Medical times Branch daily as needed for Itching. metFORMIN 2018-0 Yes [id number] 500mg Take 1 [facility] 500 mg 7-22 tablet by ity of tablet 00:00: mouth 2 [place] 00 (two) Medical times Branch daily with meals. pantoprazol 2018- Yes [id number] 40mg Take 1 [facility] e 40 mg EC 7-22 tablet by ity of tablet 00:00: mouth [place] 00 daily. Medical Branch clobetasol 2018- Yes [id number] Apply to [facility] 0.05 % 7-22 area(s) 2 ity of cream 00:00: (two) [place] 00 times Medical daily. Branch triamcinolo Yes [id number] Apply to [facility] ne 7-22 affected ity of acetonide 00:00: area(s) 2 [place] 0.1 % cream 00 (two) Medical times Branch daily. ALPRAZolam Yes [id number] 1mg Take 1 [facility] 1 mg tablet 7-22 tablet by ity of 00:00: mouth 2 00 (two) Medical times Branch daily. Prn anxiety carvedilol 2018- Yes [id number] 3.125mg Take 1 [facility] 3.125 mg 7-22 tablet by ity of tablet 00:00: mouth 2 00 (two) Medical times Branch daily with meals. foLIC acid 2018- Yes [id number] 1mg Take 1 [facility] 1 mg tablet 7-22 tablet by ity of 00:00: mouth [place] 00 daily. Medical Branch hydrOXYzine Yes [id number] 50mg Take 1 [facility] 50 mg 7-22 tablet by ity of tablet 00:00: mouth 3 00 (three) Medical times Branch daily as needed for Itching. metFORMIN 2018- Yes [id number] 500mg Take 1 [facility] 500 mg 7-22 tablet by ity of tablet 00:00: mouth 2 [place] 00 (two) Medical times Branch daily with meals. pantoprazol 2018- Yes [id number] 40mg Take 1 [facility] e 40 mg EC 7-22 tablet by ity of tablet 00:00: mouth [place] 00 daily. Medical Branch clobetasol 2018- Yes [id number] Apply to [facility] 0.05 % 7-22 area(s) 2 ity of cream 00:00: (two) [place] 00 times Medical daily. Branch triamcinolo Yes [id number] Apply to [facility] ne 7-22 affected ity of acetonide 00:00: area(s) 2 [place] 0.1 % cream 00 (two) Medical times Branch daily. ALPRAZolam Yes [id number] 1mg Take 1 [facility] 1 mg tablet 7-22 tablet by ity of 00:00: mouth 2 [place] (two) Medical times Branch daily. Prn anxiety carvedilol Yes [id number] 3.125mg Take 1 [facility] 3.125 mg 7-22 tablet by ity of tablet 00:00: mouth 2 (two) Medical times Branch daily with meals. foLIC acid Yes [id number] 1mg Take 1 [facility] 1 mg tablet 7-22 tablet by ity of 00:00: mouth 00 daily. Medical Branch hydrOXYzine Yes [id number] 50mg Take 1 [facility] 50 mg 7-22 tablet by ity of tablet 00:00: mouth 3 (three) Medical times Branch daily as needed for Itching. metFORMIN Yes [id number] 500mg Take 1 [facility] 500 mg 7-22 tablet by ity of tablet 00:00: mouth 2 (two) Medical times Branch daily with meals. pantoprazol Yes [id number] 40mg Take 1 [facility] e 40 mg EC 7-22 tablet by ity of tablet 00:00: mouth 00 daily. Medical Branch clobetasol Yes [id number] Apply to [facility] 0.05 % 7-22 area(s) 2 ity of cream 00:00: (two) 00 times Medical daily. Branch triamcinolo Yes [id number] Apply to [facility] ne 7-22 affected ity of acetonide 00:00: area(s) 2 [place] 0.1 % cream 00 (two) Medical times Branch daily. ALPRAZolam Yes [id number] 1mg Take 1 [facility] 1 mg tablet 7-22 tablet by ity of 00:00: mouth 2 (two) Medical times Branch daily. Prn anxiety carvedilol Yes [id number] 3.125mg Take 1 [facility] 3.125 mg 7-22 tablet by ity of tablet 00:00: mouth 2 (two) Medical times Branch daily with meals. foLIC acid Yes [id number] 1mg Take 1 [facility] 1 mg tablet 7-22 tablet by ity of 00:00: mouth [place] 00 daily. Medical Branch furosemide Yes [id number] 40mg Take 1 [facility] 40 mg 7-22 tablet by ity of tablet 00:00: mouth [place] 00 daily. Medical Branch hydrOXYzine Yes [id number] 50mg Take 1 [facility] 50 mg 7-22 tablet by ity of tablet 00:00: mouth 3 [place] 00 (three) Medical times Branch daily as needed for Itching. metFORMIN Yes [id number] 500mg Take 1 [facility] 500 mg 7-22 tablet by ity of tablet 00:00: mouth 2 [place] 00 (two) Medical times Branch daily with meals. pantoprazol Yes [id number] 40mg Take 1 [facility] e 40 mg EC 7-22 tablet by ity of tablet 00:00: mouth [place] 00 daily. Medical Branch spironolact Yes [id number] 25mg Take 1 [facility] one 25 mg 7-22 tablet by ity o f tablet 00:00: mouth 2 [place] 00 (two) Medical times Branch daily. clobetasol Yes [id number] Apply to [facility] 0.05 % 7-22 area(s) 2 ity of cream 00:00: (two) [place] 00 times Medical daily. Branch triamcinolo Yes [id number] Apply to [facility] ne 7-22 affected ity of acetonide 00:00: area(s) 2 [place] 0.1 % cream 00 (two) Medical times Branch daily. furosemide 2019- No [id number] 40mg Take 1 [facility] 40 mg 7-22 08- tablet by ity of tablet 00:00: 00:00 mouth [place] 00 :00 daily. Medical Branch furosemide 2019- No [id number] 40mg Take 1 [facility] 40 mg 7-22 08-26 tablet by ity of tablet 00:00: 00:00 mouth [place] 00 :00 daily. Medical Branch spironolact 2019- No [id number] 25mg Take 1 [facility] one 25 mg 7-22 08-07 tablet by ity of tablet 00:00: 00:00 mouth 2 [place] 00 :00 (two) Medical times Branch daily. Pitavastati Yes 2mg Take 2 mg U nivers n (LIVALO) 6-18 by mouth ity o f 2 mg Tab 16:18: daily. [address] Pitavastati [id number] Yes 2mg Take 2 mg U nivers n (LIVALO) 6-18 by mouth ity o f 2 mg Tab 16:18: daily. [address] [place] 0 Yes 2mg Take 2 mg U nivers n (LIVALO) 6-18 by mouth ity o f 2 mg Tab 16:18: daily. [address] [place] 0 Yes 2mg Take 2 mg U nivers n (LIVALO) 6-18 by mouth ity o f 2 mg Tab 16:18: daily. [address] [place] 0 Yes 2mg Take 2 mg U nivers n (LIVALO) 6-18 by mouth ity o f 2 mg Tab 16:18: daily. [address] [place] 0 Yes 2mg Take 2 mg U nivers n (LIVALO) 6-18 by mouth ity o f 2 mg Tab 16:18: daily. [address] [place] 0 Yes 2mg Take 2 mg U nivers n (LIVALO) 6-18 by mouth ity o f 2 mg Tab 16:18: daily. [address] [place] 0 Yes 2mg Take 2 mg U nivers n (LIVALO) 6-18 by mouth ity o f 2 mg Tab 16:18: daily. [address] [place] 0 Yes 2mg Take 2 mg U nivers n (LIVALO) 6-18 by mouth ity o f 2 mg Tab 16:18: daily. [address] [place] 0 Yes 2mg Take 2 mg U nivers n (LIVALO) 6-18 by mouth ity o f 2 mg Tab 16:18: daily. [address] [place] 0 Yes 2mg Take 2 mg U nivers n (LIVALO) 6-18 by mouth ity o f 2 mg Tab 16:18: daily. [address] [place] 0 Yes 2mg Take 2 mg U nivers n (LIVALO) 6-18 by mouth ity o f 2 mg Tab 16:18: daily. [address] Pitavastati 2019-0 Yes 2mg Take 2 mg U nivers n (LIVALO) 6-18 by mouth ity o f 2 mg Tab 16:18: daily. [place] 51 Medical Branch traMADOL 2019-0 Yes [id number] 50mg Take 1 Un epifanio (ULTRAM) 50 6-18 tablet by ity of mg tablet 00:00: mouth [place] 00 every 6 Medical (six) Branch hours as needed for Pain (scale 4-6). traMADOL 2019-0 Yes [id number] 50mg Take 1 Un epifanio (ULTRAM) 50 6-18 tablet by ity of mg tablet 00:00: mouth [place] 00 every 6 Medical (six) Branch hours as needed for Pain (scale 4-6). traMADOL 2019-0 Yes [id number] 50mg Take 1 Un epifanio (ULTRAM) 50 6-18 tablet by ity of mg tablet 00:00: mouth [place] 00 every 6 Medical (six) Branch hours as needed for Pain (scale 4-6). traMADOL 2019-0 Yes [id number] 50mg Take 1 Un epifanio (ULTRAM) 50 6-18 tablet by ity of mg tablet 00:00: mouth [place] 00 every 6 Medical (six) Branch hours as needed for Pain (scale 4-6). traMADOL 2019-0 Yes [id number] 50mg Take 1 Un epifanio (ULTRAM) 50 6-18 tablet by ity of mg tablet 00:00: mouth [place] 00 every 6 Medical (six) Branch hours as needed for Pain (scale 4-6). traMADOL 2019-0 Yes [id number] 50mg Take 1 Un epifanio (ULTRAM) 50 6-18 tablet by ity of mg tablet 00:00: mouth [place] 00 every 6 Medical (six) Branch hours as needed for Pain (scale 4-6). traMADOL 2019-0 Yes [id number] 50mg Take 1 Un epifanio (ULTRAM) 50 6-18 tablet by ity of mg tablet 00:00: mouth [place] 00 every 6 Medical (six) Branch hours as needed for Pain (scale 4-6). traMADOL 2019-0 Yes [id number] 50mg Take 1 Un epifanio (ULTRAM) 50 6-18 tablet by ity of mg tablet 00:00: mouth [place] 00 every 6 Medical (six) Branch hours as needed for Pain (scale 4-6). traMADOL 2019-0 Yes [id number] 50mg Take 1 Un epifanio (ULTRAM) 50 6-18 tablet by ity of mg tablet 00:00: mouth [place] 00 every 6 Medical (six) Branch hours as needed for Pain (scale 4-6). traMADOL 2019-0 Yes [id number] 50mg Take 1 Un epifanio (ULTRAM) 50 6-18 tablet by ity of mg tablet 00:00: mouth [place] 00 every 6 Medical (six) Branch hours as needed for Pain (scale 4-6). traMADOL 2019-0 Yes [id number] 50mg Take 1 Un epifanio (ULTRAM) 50 6-18 tablet by ity of mg tablet 00:00: mouth [place] 00 every 6 Medical (six) Branch hours as needed for Pain (scale 4-6). traMADOL 2019-0 Yes [id number] 50mg Take 1 Un epifanio (ULTRAM) 50 6-18 tablet by ity of mg tablet 00:00: mouth [place] 00 every 6 Medical (six) Branch hours as needed for Pain (scale 4-6). traMADOL 2019-0 Yes [id number] 50mg Take 1 Un epifanio (ULTRAM) 50 6-18 tablet by ity of mg tablet 00:00: mouth [place] 00 every 6 Medical (six) Branch hours as needed for Pain (scale 4-6). traMADOL 2019-0 Yes [id number] 50mg Take 1 Un epifanio (ULTRAM) 50 6-18 tablet by ity of mg tablet 00:00: mouth [place] 00 every 6 Medical (six) Branch hours as needed for Pain (scale 4-6). traMADOL 2019-0 Yes [id number] 50mg Take 1 Un epifanio (ULTRAM) 50 6-18 tablet by ity of mg tablet 00:00: mouth [place] 00 every 6 Medical (six) Branch hours as needed for Pain (scale 4-6). traMADOL 2019-0 Yes [id number] 50mg Take 1 Un epifanio (ULTRAM) 50 6-18 tablet by ity of mg tablet 00:00: mouth [place] 00 every 6 Medical (six) Branch hours as needed for Pain (scale 4-6). traMADOL 2019-0 Yes [id number] 50mg Take 1 Un epifanio (ULTRAM) 50 6-18 tablet by ity of mg tablet 00:00: mouth [place] 00 every 6 Medical (six) Branch hours as needed for Pain (scale 4-6). traMADOL Yes [id number] 50mg Take 1 Un epifanio (ULTRAM) 50 6-18 tablet by ity of mg tablet 00:00: mouth [place] 00 every 6 Medical (six) Branch hours as needed for Pain (scale 4-6). traMADOL Yes [id number] 50mg Take 1 Un epifanio (ULTRAM) 50 6-18 tablet by ity of mg tablet 00:00: mouth [place] 00 every 6 Medical (six) Branch hours as needed for Pain (scale 4-6). traMADOL Yes [id number] 50mg Take 1 Un epifanio (ULTRAM) 50 6-18 tablet by ity of mg tablet 00:00: mouth [place] 00 every 6 Medical (six) Branch hours as needed for Pain (scale 4-6). traMADOL 2020- No [id number] 50mg Take 1 U nivers (ULTRAM) 50 6-18 05-19 tablet by it y of mg tablet 00:00: 00:00 mouth [place] 00 :00 every 6 Medical (six) Branch hours as needed for Pain (scale 4-6). traMADOL 2020- No [id number] 50mg Take 1 U nivers (ULTRAM) 50 6-18 05-19 tablet by it y of mg tablet 00:00: 00:00 mouth [place] 00 :00 every 6 Medical (six) Branch hours as needed for Pain (scale 4-6). folic acid Yes 1mg QD Take [address] [facility] (FOLVITE) 1 6-13 by mouth [facility] tablet 00:00: daily . [facility] al [place] folic acid Yes 1mg QD Take [address] [facility] (FOLVITE) 1 6-13 by [facility] tablet 00:00: daily . Medic al [place] folic acid 0 Yes 1mg QD Take [address] [facility] (FOLVITE) 1 6-13 by [facility] tablet 00:00: daily . Medic al [place] lactulose Yes TK [address] [facility] (CHRONULAC) 5-04 PO TID [facility] gram/15 00:[facility]: [facility] mL solution 00 Center lactulose Yes TK [address] [facility] (CHRONULAC) 5-04 PO TID [facility] gram/15 00:00: Medical mL solution 00 Center lactulose 2018- Yes TK [address] [facility] (CHRONULAC) 5-04 PO TID [facility] gram/15 00:00: Medical mL solution 00 Center blood sugar Yes [id number] Use BID, [facility] diagnostic 4-23 DX E11.9 ity o f (ACCU-CHEK 00:00: (Brand [place] GUIDE) 00 upon Medical strip insurance Branch approval) Lancets Yes [id number] Use BID, U nivers Misc 4-23 DX E11.9 ity of 00:00: (Brand [place] 00 upon Medical insurance Branch approval) Blood-Gluco Yes [id number] Use BID, [facility] se Meter 4-23 DX E11.9 ity of (ACCU-CHEK 00:00: (Brand [place] GUIDE 00 upon Medical GLUCOSE insurance Branch METER) Misc approval) ACCU-CHEK GUIDE blood sugar Yes [id number] Use BID, [facility] diagnostic 4-23 DX E11.9 ity o f (ACCU-CHEK 00:00: (Brand [place] GUIDE) 00 upon Medical strip insurance Branch approval) Lancets Yes [id number] Use BID, U nivers Misc 4-23 DX E11.9 ity of 00:00: (Brand [place] 00 upon Medical insurance Branch approval) Blood-Gluco 2018- Yes [id number] Use BID, [facility] se Meter 4-23 DX E11.9 ity of (ACCU-CHEK 00:00: (Brand [place] GUIDE 00 upon Medical GLUCOSE insurance Branch METER) Misc approval) ACCU-CHEK GUIDE blood sugar 2018- Yes [id number] Use BID, [facility] diagnostic 4-23 DX E11.9 ity o f (ACCU-CHEK 00:00: (Brand [place] GUIDE) 00 upon Medical strip insurance Branch approval) Lancets Yes [id number] Use BID, U nivers Misc 4-23 DX E11.9 ity of 00:00: (Brand [place] 00 upon Medical insurance Branch approval) Blood-Gluco 2018- Yes [id number] Use BID, [facility] se Meter 4-23 DX E11.9 ity of (ACCU-CHEK 00:00: (Brand [place] GUIDE 00 upon Medical GLUCOSE insurance Branch METER) Misc approval) ACCU-CHEK GUIDE blood sugar 2019- Yes [id number] Use BID, [facility] diagnostic 4-23 DX E11.9 ity o f (ACCU-CHEK 00:00: (Brand [place] GUIDE) 00 upon Medical strip insurance Branch approval) Lancets 2019- Yes [id number] Use BID, U nivers Misc 423 DX E11.9 ity of 00:00: (Brand [place] 00 upon Medical insurance Branch approval) Blood-Gluco 2019- Yes [id number] Use BID, [facility] se Meter 23 DX E11.9 ity of (ACCU-CHEK 00:00: (Brand [place] GUIDE 00 upon Medical GLUCOSE insurance Branch METER) Misc approval) ACCU-CHEK GUIDE blood sugar 2018- Yes [id number] Use BID, [facility] diagnostic 09-18 DX E11.9 ity o f (ACCU-CHEK 00:00: (Brand [place] GUIDE) 00 upon Medical strip insurance Branch approval) Lancets 2019- Yes [id number] Use BID, U nivers Misc 09-18 DX E11.9 ity of 00:00: (Brand [place] 00 upon Medical insurance Branch approval) Blood-Gluco 2019- Yes [id number] Use BID, [facility] se Meter 09-18 DX E11.9 ity of (ACCU-CHEK 00:00: (Brand [place] GUIDE 00 upon Medical GLUCOSE insurance Branch METER) Misc approval) ACCU-CHEK GUIDE blood sugar 2019- Yes [id number] Use BID, [facility] diagnostic 4-23 DX E11.9 ity o f (ACCU-CHEK 00:00: (Brand [place] GUIDE) 00 upon Medical strip insurance Branch approval) Lancets 2019- Yes [id number] Use BID, U nivers Misc -23 DX E11.9 ity of 00:00: (Brand [place] 00 upon Medical insurance Branch approval) Blood-Gluco 2019- Yes [id number] Use BID, [facility] se Meter 23 DX E11.9 ity of (ACCU-CHEK 00:00: (Brand [place] GUIDE 00 upon Medical GLUCOSE insurance Branch METER) Misc approval) ACCU-CHEK GUIDE blood sugar 2019- Yes [id number] Use BID, [facility] diagnostic 4-23 DX E11.9 ity o f (ACCU-CHEK 00:00: (Brand [place] GUIDE) 00 upon Medical strip insurance Branch approval) Lancets 2019- Yes [id number] Use BID, U nivers Misc 4-23 DX E11.9 ity of 00:00: (Brand [place] 00 upon Medical insurance Branch approval) Blood-Gluco 2019- Yes [id number] Use BID, [facility] se Meter 4-23 DX E11.9 ity of (ACCU-CHEK 00:00: (Brand [place] GUIDE 00 upon Medical GLUCOSE insurance Branch METER) Misc approval) ACCU-CHEK GUIDE blood sugar 2019- Yes [id number] Use BID, [facility] diagnostic 4-23 DX E11.9 ity o f (ACCU-CHEK 00:00: (Brand [place] GUIDE) 00 upon Medical strip insurance Branch approval) Lancets 2019 Yes [id number] Use BID, U nivers Misc 423 DX E11.9 ity of 00:00: (Brand [place] 00 upon Medical insurance Branch approval) Blood-Gluco 2019- Yes [id number] Use BID, [facility] se Meter 4-23 DX E11.9 ity of (ACCU-CHEK 00:00: (Brand [place] GUIDE 00 upon Medical GLUCOSE insurance Branch METER) Misc approval) ACCU-CHEK GUIDE blood sugar 2019- Yes [id number] Use BID, [facility] diagnostic 4-23 DX E11.9 ity o f (ACCU-CHEK 00:00: (Brand [place] GUIDE) 00 upon Medical strip insurance Branch approval) Lancets 2019- Yes [id number] Use BID, U nivers Misc 4-23 DX E11.9 ity of 00:00: (Brand [place] 00 upon Medical insurance Branch approval) Blood-Gluco 2019- Yes [id number] Use BID, [facility] se Meter 4-23 DX E11.9 ity of (ACCU-CHEK 00:00: (Brand [place] GUIDE 00 upon Medical GLUCOSE insurance Branch METER) Misc approval) ACCU-CHEK GUIDE blood sugar 2019- Yes [id number] Use BID, [facility] diagnostic 4-23 DX E11.9 ity o f (ACCU-CHEK 00:00: (Brand [place] GUIDE) 00 upon Medical strip insurance Branch approval) Lancets 2019- Yes [id number] Use BID, U nivers Misc 4-23 DX E11.9 ity of 00:00: (Brand [place] 00 upon Medical insurance Branch approval) Blood-Gluco 2019- Yes [id number] Use BID, [facility] se Meter -23 DX E11.9 ity of (ACCU-CHEK 00:00: (Brand [place] GUIDE 00 upon Medical GLUCOSE insurance Branch METER) Misc approval) ACCU-CHEK GUIDE blood sugar 2018- Yes [id number] Use BID, [facility] diagnostic 4 DX E11.9 ity o f (ACCU-CHEK 00:00: (Brand [place] GUIDE) 00 upon Medical strip insurance Branch approval) Lancets 2019 Yes [id number] Use BID, U nivers Misc 09-18 DX E11.9 ity of 00:00: (Brand [place] 00 upon Medical insurance Branch approval) Blood-Gluco Yes [id number] Use BID, [facility] se Meter 09-18 DX E11.9 ity of (ACCU-CHEK 00:00: (Brand [place] GUIDE 00 upon Medical GLUCOSE insurance Branch METER) Misc approval) ACCU-CHEK GUIDE Blood-Gluco Yes [id number] Use BID, [facility] se Meter 09-18 DX E11.9 ity of (ACCU-CHEK 00:00: (Brand [place] GUIDE 00 upon Medical GLUCOSE insurance Branch METER) Misc approval) ACCU-CHEK GUIDE Blood-Gluco Yes [id number] Use BID, [facility] se Meter 09-18 DX E11.9 ity of (ACCU-CHEK 00:00: (Brand [place] GUIDE 00 upon Medical GLUCOSE insurance Branch METER) Misc approval) ACCU-CHEK GUIDE Blood-Gluco Yes [id number] Use BID, [facility] se Meter 23 DX E11.9 ity of (ACCU-CHEK 00:00: (Brand [place] GUIDE 00 upon Medical GLUCOSE insurance Branch METER) Misc approval) ACCU-CHEK GUIDE Blood-Gluco 2018- Yes [id number] Use BID, [facility] se Meter 23 DX E11.9 ity of (ACCU-CHEK 00:00: (Brand [place] GUIDE 00 upon Medical GLUCOSE insurance Branch METER) Misc approval) ACCU-CHEK GUIDE Blood-Gluco 2018- Yes [id number] Use BID, [facility] se Meter -23 DX E11.9 ity of (ACCU-CHEK 00:00: (Brand [place] GUIDE 00 upon Medical GLUCOSE insurance Branch METER) Misc approval) ACCU-CHEK GUIDE Blood-Gluco 2019-0 Yes [id number] Use BID, [facility] se Meter 4-23 DX E11.9 ity of (ACCU-CHEK 00:00: (Brand [place] GUIDE 00 upon Medical GLUCOSE insurance Branch METER) Misc approval) ACCU-CHEK GUIDE Blood-Gluco 2019-0 Yes [id number] Use BID, [facility] se Meter 4-23 DX E11.9 ity of (ACCU-CHEK 00:00: (Brand [place] GUIDE 00 upon Medical GLUCOSE insurance Branch METER) Misc approval) ACCU-CHEK GUIDE Blood-Gluco 2018- Yes [id number] Use BID, [facility] se Meter 4-23 DX E11.9 ity of (ACCU-CHEK 00:00: (Brand [place] GUIDE 00 upon Medical GLUCOSE insurance Branch METER) Misc approval) ACCU-CHEK GUIDE blood sugar 2018- Yes [id number] Use BID, [facility] diagnostic 4-23 DX E11.9 ity o f (ACCU-CHEK 00:00: (Brand [place] GUIDE) 00 upon Medical strip insurance Branch approval) Lancets 2019-0 Yes [id number] Use BID, U nivers Misc 4-23 DX E11.9 ity of 00:00: (Brand [place] 00 upon Medical insurance Branch approval) Blood-Gluco 2019- Yes [id number] Use BID, [facility] se Meter 4-23 DX E11.9 ity of (ACCU-CHEK 00:00: (Brand [place] GUIDE 00 upon Medical GLUCOSE insurance Branch METER) Misc approval) ACCU-CHEK GUIDE Blood-Gluco 2019-0 2020- No [id number] Use BID, [facility] se Meter 23 05-19 DX E11.9 ity of (ACCU-CHEK 00:00: 00:00 ([place] 00 :00 upon Medical GLUCOSE insurance Branch METER) Misc approval) ACCU-CHEK GUIDE Blood-Gluco 2019-0 2020- No [id number] Use BID, [facility] se Meter -23 05-19 DX E11.9 ity of (ACCU-CHEK 00:00: 00:00 ([place] 00 :00 upon Medical GLUCOSE insurance Branch METER) Misc approval) ACCU-CHEK GUIDE lactulose 2019-0 Yes [id number] 15mL Take 15 mL [facility] 10 gram/15 4-08 by mouth 3 ity of mL solution 00:00: (three) [place] 00 times Medical daily. Branch lactulose 2019-0 Yes [id number] 15mL Take 15 mL [facility] 10 gram/15 4-08 by mouth 3 ity of mL solution 00:00: (three) [place] 00 times Medical daily. Branch lactulose 2019-0 Yes [id number] 15mL Take 15 mL [facility] 10 gram/15 4-08 by mouth 3 ity of mL solution 00:00: (three) [place] 00 times Medical daily. Branch lactulose 2019-0 Yes [id number] 15mL Take 15 mL Univers 10 gram/15 4-08 by mouth 3 ity of mL solution 00:00: (three) [place] as 00 times Medical daily. Branch lactulose 2019-0 Yes [id number] 15mL Take 15 mL Univers 10 gram/15 4-08 by mouth 3 ity of mL solution 00:00: (three) [place] 00 times Medical daily. Branch lactulose 2019-0 Yes [id number] 15mL Take 15 mL Univers 10 gram/15 4-08 by mouth 3 ity of mL solution 00:00: (three) [place] 00 times Medical daily. Branch lactulose 2019-0 Yes [id number] 15mL Take 15 mL Univers 10 gram/15 4-08 by mouth 3 ity of mL solution 00:00: (three) [place] 00 times Medical daily. Branch lactulose 2019-0 Yes [id number] 15mL Take 15 mL Univers 10 gram/15 4-08 by mouth 3 ity of mL solution 00:00: (three) [place] 00 times Medical daily. Branch lactulose 2019-0 Yes [id number] 15mL Take 15 mL [facility] 10 gram/15 4-08 by mouth 3 ity of mL solution 00:00: (three) [place] 00 times Medical daily. Branch lactulose 2019-0 Yes [id number] 15mL Take 15 mL [facility] 10 gram/15 4-08 by mouth 3 ity of mL solution 00:00: (three) [place] 00 times Medical daily. Branch lactulose 2019-0 Yes [id number] 15mL Take 15 mL [facility] 10 gram/15 4-08 by mouth 3 ity of mL solution 00:00: (three) [place] 00 times Medical daily. Branch lactulose 2019-0 Yes [id number] 15mL Take 15 mL Univers 10 gram/15 4-08 by mouth 3 ity of mL solution 00:00: (three) [place] 00 times Medical daily. Branch lactulose 2019-0 Yes [id number] 15mL Take 15 mL [facility] 10 gram/15 4-08 by mouth 3 ity of mL solution 00:00: (three) [place] 00 times Medical daily. Branch furosemide 2019-0 Yes [id number] 40mg Take 1 [facility] 40 mg 2-12 tablet by ity of tablet 00:00: mouth [place] 00 every Medical morning Branch and evening. furosemide 2019-0 Yes [id number] 40mg Take 1 [facility] 40 mg 2-12 tablet by ity of tablet 00:00: mouth [place] 00 every Medical morning Branch and evening. furosemide 2019-0 Yes [id number] 40mg Take 1 [facility] 40 mg 2-12 tablet by ity of tablet 00:00: mouth [place] 00 every Medical morning Branch and evening. furosemide 2019-0 Yes [id number] 40mg Take 1 [facility] 40 mg 2-12 tablet by ity of tablet 00:00: mouth [place] 00 every Medical morning Branch and evening. furosemide 2019-0 Yes [id number] 40mg Take 1 [facility] 40 mg 2-12 tablet by ity of tablet 00:00: mouth [place] 00 every Medical morning Branch and evening. furosemide 2019-0 Yes [id number] 40mg Take 1 [facility] 40 mg 2-12 tablet by ity of tablet 00:00: mouth [place] 00 every Medical morning Branch and evening. furosemide 2019-0 Yes [id number] 40mg Take 1 [facility] 40 mg 2-12 tablet by ity of tablet 00:00: mouth [place] 00 every Medical morning Branch and evening. furosemide 2019-0 Yes [id number] 40mg Take 1 [facility] 40 mg 2-12 tablet by ity of tablet 00:00: mouth [place] 00 every Medical morning Branch and evening. furosemide 2019-0 Yes [id number] 40mg Take 1 [facility] 40 mg 2-12 tablet by ity of tablet 00:00: mouth [place] 00 every Medical morning Branch and evening. furosemide 2019-0 Yes [id number] 40mg Take 1 [facility] 40 mg 2-12 tablet by ity of tablet 00:00: mouth [place] 00 every Medical morning Branch and evening. furosemide 2019-0 Yes [id number] 40mg Take 1 [facility] 40 mg 2-12 tablet by ity of tablet 00:00: mouth [place] 00 every Medical morning Branch and evening. furosemide 2018- Yes [id number] 40mg Take 1 [facility] 40 mg 2-12 tablet by ity of tablet 00:00: mouth [place] 00 every Medical morning Branch and evening. furosemide 2018- Yes [id number] 40mg Take 1 [facility] 40 mg 2-12 [...] daily . Medi jeevan MG tablet 00 [place] carvedilol Yes 6.25mg Take 6.[address] [facility] (COREG) 2-06 [facility] 3.125 MG 00:00: mouth 2 Medica l tablet 00 (two) Center times daily with breakfast and dinner . lisinopril Yes 20mg QD Take [address] (PRINIVIL,Z 2-06 by mouth [facility] ESTRIL) 20 00:00: daily . Medi jeevan MG tablet 00 [place] lisinopril Yes [id number] 20mg Take 1 [facility] 20 mg 2-06 tablet by ity of tablet 00:00: mouth [place] 00 daily. Medical Branch lisinopril Yes [id number] 20mg Take 1 [facility] 20 mg 2-06 tablet by ity of tablet 00:00: mouth [place] 00 daily. Medical Branch lisinopril Yes [id number] 20mg Take 1 [facility] 20 mg 2-06 tablet by ity of tablet 00:00: mouth [place] 00 daily. [facility] lisinopril Yes [id number] 20mg Take 1 Univers 20 mg 2-06 tablet by ity of tablet 00:00: mouth [place] 00 daily. [facility] Branch lisinopril 2019-0 Yes [id number] 20mg Take 1 Univers 20 mg 2-06 tablet by ity of tablet 00:00: mouth [place] 00 daily. [facility] lisinopril 2019-0 Yes [id number] 20mg Take 1 Univers 20 mg 2-06 tablet by ity of tablet 00:00: mouth [place] 00 daily. [facility] lisinopril 2019-0 Yes [id number] 20mg Take 1 [facility] 20 mg 2-06 tablet by ity of tablet 00:00: mouth [place] 00 daily. [facility] lisinopril 2019-0 Yes [id number] 20mg Take 1 [facility] 20 mg 2-06 tablet by ity of tablet 00:00: mouth [place] 00 daily. [facility] lisinopril 2018-0 Yes [id number] 20mg Take 1 [facility] 20 mg 2-06 tablet by ity of tablet 00:00: mouth [place] 00 daily. [facility] lisinopril 2018-0 Yes [id number] 20mg Take 1 [facility] 20 mg 2-06 tablet by ity of tablet 00:00: mouth [place] 00 daily. [facility] lisinopril 2019-0 Yes [id number] 20mg Take 1 [facility] 20 mg 2-06 tablet by ity of tablet 00:00: mouth [place] 00 daily. [facility] lisinopril 2019-0 Yes [id number] 20mg Take 1 Univers 20 mg 2-06 tablet by ity of tablet 00:00: mouth [place] 00 daily. [facility] lisinopril 2019-0 Yes [id number] 20mg Take 1 [facility] 20 mg 2-06 tablet by ity of tablet 00:00: mouth [place] 00 daily. Medical Branch carvedilol 2018-0 Yes 6.25mg Take 6.[address] [facility] (COREG) 2-06 mg [facility] 3.125 MG 00:00: mouth 2 Medica l tablet 00 (two) Center times daily with breakfast and dinner . lisinopril 2019-0 Yes 20mg QD Take [address] (PRINIVIL,Z 2-06 by mouth [facility] ESTRIL) 20 00:00: daily . Medi jeevan MG tablet 00 Center pantoprazol 2018-0 Yes 40mg QD Take 40 mg [facility] [...] 00:00: as needed Med ical 00 . [place] hydrOXYzine 2017-05 Yes 50mg Take [address] [facility] (ATARAX) 50 1-14 by mouth [facility] MG tablet 00:00: as needed Med ical 00 . [place] hydrOXYzine 2017-05 Yes 50mg Take [address] [facility] (ATARAX) 50 1-14 by mouth Luke s MG tablet 00:00: as needed Med ical 00 . [place] traMADol Yes Recurrent 50mg Take 1 [facility] (ULTRAM) 50 7-19 umbilical tablet by Health mg tablet 00:00: hernia mouth 00 every 6 hours as needed for Pain. traMADol Yes Recurrent 50mg Take 1 [facility] (ULTRAM) 50 7-19 umbilical tablet by Health mg tablet 00:00: hernia mouth 00 every 6 hours as needed for Pain. traMADol Yes Recurrent 50mg Take 1 [facility] (ULTRAM) 50 7-19 umbilical tablet by Health mg tablet 00:00: hernia mouth 00 every 6 hours as needed for Pain. No known No Univers medications [facility] [place] [facility] No known No Univers medications [facility] [place] [facility] Immunizations Ordered Filled Immunization Date Status Comments [facility] e Immunization Name Name SARS-COV-2 COVID-19 2021-02-05 Completed Unive rsity of PFIZER VACCINE 00:00:00 [facility] SARS-COV-2 COVID-19 2021-02-05 Completed Unive rsity of PFIZER VACCINE 00:00:00 [facility] SARS-COV-2 COVID-19 2021-02-05 Completed Unive rsity of PFIZER VACCINE 00:00:00 [facility] SARS-COV-2 COVID-19 2021-02-05 Completed Unive rsity of PFIZER VACCINE 00:00:00 [facility] SARS-COV-2 COVID-19 2021-02-05 Completed Unive rsity of PFIZER VACCINE 00:00:00 [facility] SARS-COV-2 COVID-19 2021-02-05 Completed Unive rsity of PFIZER VACCINE 00:00:00 [facility] SARS-COV-2 COVID-19 2021-02-05 Completed Unive rsity of PFIZER VACCINE 00:00:00 [facility] Covid-19 Vaccine 2020-07-[address] [facility] Mrna (Pf) 00:00:00 Medical Center (Pfizer/biontech) Covid-19 Vaccine 2020-07-[address] [facility] MRNA (PF) 12yr+ 00:00:00 Medical C enter (Pfizer/BioNTech)(I [id number]) Covid-19 Vaccine 2020-07-[address] [facility] Antibiotic Free PF 00:[facility]:00 Medica l Center IM ([id number]) Influenza 2020-06-[address] [facility] Antibiotic Free PF 00:00:00 Medica l Center IM ([id number]) Influenza 2020-06-[address] [facility] Antibiotic Free PF 00:00:00 Medica l Center IM ([id number]) Pneumococcal 2018-10-[address] [facility] Conjugate (Prevnar) 00:00:00 Medic al Center 13-Valent Pneumococcal 2018-10-[address] [facility] Conjugate (Prevnar) 00:00:00 Medic al Center 13-Valent Pneumococcal 2018-10-[address] [facility] Conjugate (Prevnar) 00:00:00 [facility] 13-Valent Influenza Four-QIV 2018-04-[address] [facility] PF 3+YR IM 00:00:00 [facility] Influenza Four-QIV 2018-04-[address] [facility] PF 3+YR IM 00:00:00 [facility] Influenza Virus 2018-04-11 Completed Universit y of Vaccine Quad IM 3+ 00:00:00 [facility] Influenza Virus 2018-04-11 Completed Universit y of Vaccine Quad IM 3+ 00:00:00 [facility] Influenza Virus 2018-04-11 Completed Universit y of Vaccine Quad IM 3+ 00:00:00 [facility] Influenza Virus 2018-04-11 Completed Universit y of Vaccine Quad IM 3+ 00:00:00 [facility] Influenza Virus 2018-04-11 Completed Universit y of Vaccine Quad IM 3+ 00:00:00 [facility] Influenza Virus 2018-04-11 Completed Universit y of Vaccine Quad IM 3+ 00:00:00 [facility] Influenza Virus 2018-04-11 Completed Universit y of Vaccine Quad IM 3+ 00:00:00 [facility] Influenza Virus 2018-04-11 Completed Universit y of Vaccine Quad IM 3+ 00:00:00 [facility] Influenza Virus 2018-04-11 Completed Universit y of Vaccine Quad IM 3+ 00:00:00 [facility] Influenza Virus 2018-04-11 Completed Universit y of Vaccine Quad IM 3+ 00:00:00 [facility] Influenza Virus 2018-04-11 Completed Universit y of Vaccine Quad IM 3+ 00:00:00 [facility] Influenza Virus 2018-04-11 Completed Universit y of Vaccine Quad IM 3+ 00:00:00 [facility] Influenza Virus 2018-04-11 Completed Universit y of Vaccine Quad IM 3+ 00:00:00 [facility] Influenza Virus 2018-04-11 Completed Universit y of Vaccine Quad IM 3+ 00:00:00 [facility] Influenza Virus 2018-04-11 Completed Universit y of Vaccine Quad IM 3+ 00:00:00 [facility] Influenza Virus 2018-04-11 Completed Universit y of Vaccine Quad IM 3+ 00:00:00 [facility] Influenza Virus 2018-04-11 Completed Universit y of Vaccine Quad IM 3+ 00:00:00 [facility] Influenza Virus 2018-04-11 Completed Universit y of Vaccine Quad IM 3+ 00:00:00 [facility] Influenza Virus 2018-04-11 Completed Universit y of Vaccine Quad IM 3+ 00:00:00 [facility] Influenza Virus 2018-04-11 Completed Universit y of Vaccine Quad IM 3+ 00:00:00 [facility] Influenza Virus 2018-04-11 Completed Universit y of Vaccine Quad IM 3+ 00:00:00 [facility] Influenza Virus 2018-04-11 Completed Universit y of Vaccine Quad IM 3+ 00:00:00 [facility] Influenza Virus 2018-04-11 Completed Universit y of Vaccine Quad IM 3+ 00:00:00 [facility] Influenza Virus 2018-04-11 Completed Universit y of Vaccine Quad IM 3+ 00:00:00 [facility] Influenza Virus 2018-04-11 Completed Universit y of Vaccine Quad IM 3+ 00:00:00 [facility] Influenza Virus 2018-04-11 Completed Universit y of Vaccine Quad IM 3+ 00:00:00 [facility] Influenza Virus 2018-04-11 Completed Universit y of Vaccine Quad IM 3+ 00:00:00 [facility] Influenza Virus 2018-04-11 Completed Universit y of Vaccine Quad IM 3+ 00:00:00 [facility] Influenza Virus 2018-04-11 Completed Universit y of Vaccine Quad IM 3+ 00:00:00 [facility] Influenza Virus 2018-04-11 Completed Universit y of Vaccine Quad IM 3+ 00:00:00 [facility] Influenza Virus 2018-04-11 Completed Universit y of Vaccine Quad IM 3+ 00:00:00 [facility] Influenza Four-QIV 2018-04-[address] [facility] PF 3+YR IM 00:00:00 Medical Center Td 7+ years, 2016-09-[address] [facility] (TDVAX) 2 Lf tetaus 00:00:00 Medic in Center toxoid preservative free Td 7+ years, 2016-09-[address] [facility] (TDVAX) 2 Lf 00:00:00 Medical [facility] er tetanus toxoid preservative free Td 2016-09-18 Completed [facility] [...] [place] [facility] Td 2016-09-18 Completed University 00:00:00 [facility] Td 2016-09-18 Completed University 00:00:00 [facility] Td 2016-09-18 Completed University of 00:00:00 [facility] Td 7+ years, 2016-09-[address] [facility] (TDVAX) 2 Lf 00:00:00 Medical Cent er tetanus toxoid preservative free Vital Signs Vital Name Observation Time Observation Value Comments Source HEIGHT 2019-12-24 167.6 cm 00:00:00 WEIGHT 2019-12-24 103 kg 00:00:00 Systolic blood 2021-12-26 150 mm[Hg] University of pressure 20:38:00 [facility] Diastolic blood 2021-12-26 79 mm[Hg] [place] o f pressure 20:38:00 [facility] Heart rate 2021-12-26 104 /min University 20:38:00 [facility] Body temperature 2021-12-26 38.06 Corrina University 20:38:00 [facility] Respiratory rate 2021-12-26 18 /min University 20:38:00 [facility] Body height 2021-12-26 167.6 cm University 20:38:00 [facility] Body weight 2021-12-26 108.863 kg University of 20:38:00 [facility] BMI 2021-12-26 38.74 kg/m2 University of 20:38:00 [facility] Oxygen saturation 2021-12-26 99 /min [facility] in Arterial blood 20:38:[address] [facility] by Pulse oximetry [place] HEIGHT 2021-12-22 167.6 cm 10:36:00 WEIGHT 2021-12-22 [...] [facility] Diastolic blood 2021-04-01 65 mm[Hg] [place] o f pressure 20:00:00 [facility] Heart rate 2021-04-01 57 /min University 20:00:00 [facility] Respiratory rate 2021-04-01 16 /min University 20:00:00 [facility] Oxygen saturation 2021-04-01 100 /min Simultaneous [facility] in Arterial blood 20:00:00 filing. User may [facility] by Pulse oximetry not have seen Branch previous data. Body temperature 2021-04-01 36.22 Corrina University of 18:07:00 [facility] Body height 2021-04-01 166 cm University of 18:07:00 [facility] Body weight 2021-04-01 104.327 kg University 18:07:00 [facility] BMI 2021-04-01 37.86 kg/m2 University 18:07:00 [facility] HEIGHT 2021-03-12 167.6 cm 07:20:00 WEIGHT 2021-03-12 [...] [facility] Diastolic blood 2020-08-19 77 mm[Hg] University o f pressure 14:00:00 [facility] Heart rate 2020-08-19 71 /min University 14:00:00 [facility] Respiratory rate 2020-08-19 18 /min University of 14:00:00 [facility] Oxygen saturation 2020-08-19 99 /min [facility] in Arterial blood 14:00:[address] [facility] by Pulse oximetry [place] Body temperature 2020-08-19 36.94 Corrina University of 12:32:00 [facility] Body weight 2020-08-19 106.142 kg University of 12:32:00 [facility] BMI 2020-08-19 37.77 kg/m2 University of 12:32:00 [facility] Systolic blood 2020-08-19 132 mm[Hg] University of pressure 14:00:00 [facility] Diastolic blood 2020-08-19 77 mm[Hg] University o f pressure 14:00:00 [facility] Heart rate 2020-08-19 71 /min University of 14:00:00 [facility] Respiratory rate 2020-08-19 18 /min University of 14:00:00 [facility] Oxygen saturation 2020-08-19 99 /min University of in Arterial blood 14:00:00 [place] Medi jeevan by Pulse oximetry Branch Body temperature 2020-08-19 36.94 Corrina University of 12:32:00 [facility] Body weight 2020-08-19 106.142 kg University of 12:32:00 [facility] BMI 2020-08-19 37.77 kg/m2 University of 12:32:00 [facility] Systolic blood 2020-06-26 120 mm[Hg] University of pressure 03:00:00 [facility] Diastolic blood 2020-06-26 103 mm[Hg] University o f pressure 03:00:00 [facility] Heart rate 2020-06-26 83 /min University of 03:00:00 [facility] Respiratory rate 2020-06-26 20 /min University of 03:00:00 [facility] Oxygen saturation 2020-06-26 99 /min University of in Arterial blood 03:00:00 [facility] jeevan by Pulse oximetry Branch Body temperature 2020-06-25 36.44 Corrina University of 23:03:00 [facility] Body height 2020-06-25 167.6 cm University of 23:03:00 [facility] Body weight 2020-06-25 105.235 kg University of 23:03:00 [facility] BMI 2020-06-25 37.45 kg/m2 University of 23:03:00 [facility] Systolic blood 2020-06-26 120 mm[Hg] University of pressure 03:00:00 [facility] Branch Diastolic blood 2020-06-26 103 mm[Hg] University o f pressure 03:00:00 [facility] Heart rate 2020-06-26 83 /min University of 03:00:00 [facility] Branch Respiratory rate 2020-06-26 20 /min University of 03:00:00 [facility] Oxygen saturation 2020-06-26 99 /min University of in Arterial blood 03:00:00 [place] Medi jeevan by Pulse oximetry Branch Body temperature 2020-06-25 36.44 Corrina University of 23:03:00 [facility] Body height 2020-06-25 167.6 cm University of 23:03:00 [facility] Body weight 2020-06-25 105.235 kg University of 23:03:00 [facility] BMI 2020-06-25 37.45 kg/m2 University of 23:03:00 [facility] HEIGHT 2020-03-13 167.6 cm 10:38:00 WEIGHT 2020-03-13 108.41 kg 10:38:00 HEIGHT 2020-03-13 167.6 cm 10:38:00 WEIGHT 2020-03-13 108.41 kg 10:38:00 HEIGHT 2019-12-24 167.6 cm 00:00:00 WEIGHT 2019-12-24 103 kg 00:00:00 Systolic blood 2019-01-21 131 mm[Hg] University of pressure 21:03:00 [facility] Diastolic blood 2019-01-21 79 mm[Hg] University o f pressure 21:03:00 [facility] Heart rate 2019-01-21 73 /min [facility] 21:03:00 [facility] Body temperature 2019-01-21 37.06 Corrina [facility] 21:03:00 [facility] Respiratory rate 2019-01-21 18 /min University 21:03:00 [facility] Body weight 2019-01-21 103.103 kg University 21:03:00 [facility] BMI 2019-01-21 36.69 kg/m2 University of 21:03:00 [facility] Oxygen saturation 2019-01-21 98 /min [facility] in Arterial blood 21:03:[address] [facility] by Pulse oximetry Branch Systolic blood 2019-01-21 131 mm[Hg] University of pressure 21:03:00 [facility] Diastolic blood 2019-01-21 79 mm[Hg] University o f pressure 21:03:00 [facility] Heart rate 2019-01-21 73 /min University 21:03:00 [facility] Body temperature 2019-01-21 37.06 Corrina [facility] 21:03:00 [facility] Respiratory rate 2019-01-21 18 /min [place] of 21:03:00 [facility] Body weight 2019-01-21 103.103 kg [facility] 21:03:00 [facility] BMI 2019-01-21 36.69 kg/m2 [facility] 21:03:00 [facility] Oxygen saturation 2019-01-21 98 /min [facility] in Arterial blood 21:03:00 [place] Medi jeevan by Pulse oximetry Branch Systolic blood 2021-12-22 150 mm[Hg] [facility] pressure 10:36:00 Medical Center Diastolic blood 2021-12-22 76 mm[Hg] [facility] pressure 10:36:00 Medical Center Heart rate 2021-12-22 75 /min [facility] 10:36:00 Medical Center Body temperature 2021-12-[address] [facility] 10:36:00 [facility] Respiratory rate 2021-12-22 18 /min [facility] 10:36:00 [facility] Body height 2021-12-[address] [facility] 10:36:00 [facility] Body weight 2021-12-[address] [facility] 10:36:00 [facility] BMI 2021-12-22 39.92 kg/m2 [facility] 10:36:00 [facility] Oxygen saturation 2021-12-22 98 /min [facility] in Arterial blood 10:36:00 Medical nter by Pulse oximetry Systolic blood 2021-03-12 107 mm[Hg] [facility] pressure 14:30:00 Medical Center Diastolic blood 2021-03-12 58 mm[Hg] [facility] pressure 14:30:00 [facility] Heart rate 2021-03-12 61 /min [facility] 14:30:00 [facility] Respiratory rate 2021-03-12 18 /min [facility] 13:30:00 [facility] Oxygen saturation 2021-03-12 94 /min [facility] in Arterial blood 13:30:00 Medical nter by Pulse oximetry Body temperature 2021-03-[address] [facility] 12:02:00 [facility] Body height 2021-03-[address] [facility] 07:20:00 [facility] Body weight 2021-03-[address] [facility] 07:20:00 [facility] BMI 2021-03-12 36.32 kg/m2 [facility] 07:20:00 [facility] Procedures Procedure Date / Time Performing Clinician Source Performed CBC W/PLT COUNT & AUTO 2022-01-07 14:53:00 Amberly Washington [facility] Center IRON, TIBC, % SAT. 2022-01-07 14:53:00 Amberly Washington [facility] (WITHOUT FERRITIN) Center FERRITIN 2022-01-07 14:53:00 Amberly [facility] PLATELET ESTIMATION 2022-01-07 14:53:00 Amberly [facility] MR BRAIN WITH & WITHOUT IV 2022-01-04 14:14:00 Amberly Washington [facility] CONTRAST Center CT HEAD WO CONTRAST 2021-12-26 22:35:08 Felisha [facility] BASIC METABOLIC PANEL (NA, 2021-12-26 21:33:00 Felisha Quintana [facility] K, CL, CO2, GLUCOSE, BUN, Medica l Branch CREATININE, CA) CBC WITH DIFF 2021-12-26 21:33:00 Felisha Quintana [facility] URINALYSIS 2021-12-26 21:33:00 Felisha Quinatna [facility] COVID-19 (ID NOW RAPID 2021-12-26 20:48:00 Felisha Quintana [facility] TESTING) Medical Branch CONSENT/REFUSAL FOR 2021-12-26 20:32:58 Doctor Unassigned, [facility] DIAGNOSIS AND TREATMENT [facility] BASIC METABOLIC PANEL (7) 2021-12-22 12:08:00 Amberly [facility] CBC W/PLT COUNT & AUTO 2021-12-22 12:08:00 Amberly Washington [facility] Center HEPATIC FUNCTION PANEL 2021-12-22 12:08:00 Amberly [facility] PROTHROMBIN TIME/INR 2021-12-22 12:08:00 Amberly Washington [facility] CBC W/PLT COUNT & AUTO 2021-12-22 12:08:00 Amberly Washington [place] [facility] DIFFERENTIAL Center ALPHA FETOPROTEIN (AFP), 2021-12-06 13:43:00 Amberly [facility] TUMOR MARKER Center BASIC METABOLIC PANEL (7) 2021-12-06 13:43:00 Amberly [facility] CBC W/PLT COUNT & AUTO 2021-12-06 13:43:00 Amberly Washington [facility] Center HEPATIC FUNCTION PANEL 2021-12-06 13:43:00 Amberly [facility] PROTHROMBIN TIME/INR 2021-12-06 13:43:00 Amberly Washington [facility] CBC W/PLT COUNT & AUTO 2021-12-06 13:43:00 Amberly [facility] MR ABDOMEN WITH & WITHOUT 2021-12-06 12:08:00 Amberly [facility] IV CONTRAST Center MR METASTATIC SKELETAL 2021-12-06 11:10:00 Amberly Washington [facility] STUDY Center CT CHEST WITHOUT IV 2021-12-06 10:40:00 Amberly Washington [facility] CONTRAST Center MR ABDOMEN WITH & WITHOUT 2021-08-26 10:40:00 Amberly Washington [facility] IV CONTRAST Center CT CHEST WITHOUT IV 2021-08-26 10:00:00 Amberly Washington [facility] CONTRAST Center ALPHA FETOPROTEIN (AFP), 2021-08-26 08:27:00 Amberly Washington [facility] TUMOR MARKER Center BASIC METABOLIC PANEL (7) 2021-08-26 08:27:00 Amberly [facility] CBC W/PLT COUNT & AUTO 2021-08-26 08:27:00 Amberly [facility] HEPATIC FUNCTION PANEL 2021-08-26 08:27:00 Amberly [facility] PROTHROMBIN TIME/INR 2021-08-26 08:27:00 Amberly Washington [facility] CBC W/PLT COUNT & AUTO 2021-08-26 08:27:00 [facility]ly [facility] DIFFERENTIAL Center HEREDITARY HEMOCHROMATOSIS 2021-08-26 08:24:00 Amberly [facility] COMPREHENSIVE METABOLIC 2021-08-03 11:34:00 Amberly Washington [facility] PANEL Center ALPHA FETOPROTEIN (AFP), 2021-08-03 11:34:00 Amberly Washington [facility] TUMOR MARKER Center PROTHROMBIN TIME/INR 2021-08-03 11:34:00 Amberly Washington [facility] CBC W/PLT COUNT & AUTO 2021-08-03 11:34:00 Amberly [facility] NM BONE SCAN WHOLE BODY 2021-04-29 13:03:00 Amberly [facility] MR ABDOMEN WITH & WITHOUT 2021-04-29 11:48:00 Amberly Washington [facility] IV CONTRAST Center CT CHEST WITHOUT IV 2021-04-29 10:31:00 Amberly Washington [facility] CONTRAST [place] ALPHA FETOPROTEIN (AFP), 2021-04-29 09:09:00 Amberly Washington [facility] TUMOR MARKER Center BASIC METABOLIC PANEL (7) 2021-04-29 09:09:00 Amberly [facility] CBC W/PLT COUNT & AUTO 2021-04-29 09:09:00 Amberly [facility] HEPATIC FUNCTION PANEL 2021-04-29 09:09:00 Amberly [facility] PROTHROMBIN TIME/INR 2021-04-29 09:09:00 Amberly Washington [facility] CBC W/PLT COUNT & AUTO 2021-04-29 09:09:00 Amberly Washington [facility] DIFFERENTIAL [place] TROPONIN I 2021-04-01 19:14:00 Garrett, Chandrakant [facility] COMP. METABOLIC PANEL 2021-04-01 19:14:00 Chandrakant Garrett [facility] ([id number]) Medical Branch AMMONIA, PLASMA 2021-04-01 19:12:00 Singer [facility] CBC WITH DIFF 2021-04-01 19:12:00 Singer [facility] XR CHEST 1 VW 2021-04-01 18:51:09 Singer [facility] URINALYSIS 2021-04-01 18:40:00 Singer [facility] PROTHROMBIN TIME / INR 2021-04-01 18:30:00 Singer Chandrakant [facility] CONSENT/REFUSAL FOR 2021-04-01 17:58:35 Doctor [facility] DIAGNOSIS AND TREATMENT [facility] IR EMBOLIZATION ARTERIAL 2021-03-12 12:05:00 Amberly [facility] BASIC METABOLIC PANEL (7) 2021-03-12 07:01:00 Anne-Marie More CH I [facility] HEPATIC FUNCTION PANEL 2021-03-12 07:01:00 Anne-Marie More [facility] CBC W/PLT COUNT & AUTO 2021-03-12 07:01:00 Anne-Marie More [facility] DIFFERENTIAL [facility] PROTHROMBIN TIME/INR 2021-03-12 07:01:00 Anne-Marie More [facility] CBC W/PLT COUNT & AUTO 2021-03-12 07:01:00 Anne-Marie More [facility] DIFFERENTIAL [facility] CBC W/PLT COUNT & AUTO 2021-02-23 10:05:00 Aicha Roman [facility] PROTHROMBIN TIME/INR 2021-02-23 10:05:00 Aicha Roman [facility] APTT 2021-02-23 10:05:00 Aicha Roman [facility] BASIC METABOLIC PANEL (7) 2021-02-23 10:05:[address] [facility] HEPATIC FUNCTION PANEL 2021-02-23 10:05:00 Aicha Roman [facility] Leny [place] CBC W/PLT COUNT & AUTO 2021-02-23 10:05:00 [facility] DI[facility]ENTIAL [facility] Center SARS-COV-2 COVID-19 2021-02-05 15:47:55 Doctor Unassigned, [facility] VACCINE,0.3ML,IM (PFIZER) [facility] MR ABDOMEN WITH & WITHOUT 2021-01-21 12:00:00 Amberly Washington [facility] IV CONTRAST Center CT CHEST WITHOUT IV 2021-01-21 10:45:00 Amberly Washington [facility] CONTRAST Center ALPHA FETOPROTEIN (AFP), 2021-01-21 10:02:00 Amberly Washington [facility] TUMOR MARKER Center BASIC METABOLIC PANEL (7) 2021-01-21 10:02:00 Amberly [facility] CBC W/PLT COUNT & AUTO 2021-01-21 10:02:00 Amberly [facility] HEPATIC FUNCTION PANEL 2021-01-21 10:02:00 [facility]/INR 2021-01-21 10:02:00 Amberly Washington [facility] HEPATITIS C PCR, 2021-01-21 10:02:00 Amberly [facility] CBC W/PLT COUNT & AUTO 2021-01-21 10:02:00 Amberly Washington [facility] IR EMBOLIZATION ARTERIAL 2020-11-26 12:27:00 Amberly Washington [facility] BASIC METABOLIC PANEL (7) 2020-11-26 08:28:00 [facility] [place] HEPATIC FUNCTION PANEL 2020-11-26 08:28:00 Anne-Marie More [facility] CBC W/PLT COUNT & AUTO 2020-11-26 08:28:00 Anne-Marie More [facility] DIFFERENTIAL [facility] PROTHROMBIN TIME/INR 2020-11-26 08:28:00 [facility] [place] [facility]TT 2020-11-26 08:28:00 Derik [facility] CBC W/PLT COUNT & AUTO 2020-11-26 08:28:00 [facility] BASIC METABOLIC PANEL (7) 2020-10-28 10:55:00 Amberly [facility] HEPATIC FUNCTION PANEL 2020-10-28 10:55:00 Amberly [facility] CBC W/PLT COUNT & AUTO 2020-10-28 10:55:00 Amberly Washington [facility] PROTHROMBIN TIME/INR 2020-10-28 10:55:00 Amberly Washington [facility] HEPATITIS C PCR, 2020-10-28 10:55:00 Amberly Washington [facility] QUANTITATIVE Center CBC W/PLT COUNT & AUTO 2020-10-28 10:55:00 Amberly Washington [facility] NM BONE SCAN WHOLE BODY 2020-10-08 14:02:00 Amberly [facility] ALPHA FETOPROTEIN (AFP), 2020-10-08 10:54:00 Amberly Washington [facility] TUMOR MARKER Center BASIC METABOLIC PANEL (7) 2020-10-08 10:54:00 Amberly [facility] CBC W/PLT COUNT & AUTO 2020-10-08 10:54:00 Amberly Washington [facility] HEPATIC FUNCTION PANEL 2020-10-08 10:54:00 Amberly [facility] PROTHROMBIN TIME/INR 2020-10-08 10:54:00 Amberly Washington [facility] CBC W/PLT COUNT & AUTO 2020-10-08 10:54:00 Amberly Washington [facility] DIFFERENTIAL Center CT CHEST WITHOUT IV 2020-10-08 09:45:00 Padmini [facility] CONTRAST Center MR ABDOMEN WITH & WITHOUT 2020-09-01 14:15:00 Jose Francisco Laguna I [facility] IV CONTRAST Center BASIC METABOLIC PANEL (7) 2020-09-01 13:15:00 Berenice[address] hill C [facility] Nikole Center HEPATIC FUNCTION PANEL 2020-09-01 13:15:00 Mindikoglu Nickie [facility] Nikole Center CBC W/PLT COUNT & AUTO 2020-09-01 13:15:00 [facility] DIFFERENTIAL [place] PROTHROMBIN TIME/INR 2020-09-01 13:15:00 [facility] Nikole [place] ALPHA FETOPROTEIN (AFP), 2020-09-01 13:15:00 [facility] TUMOR MARKER Nik[place] Center CBC W/PLT COUNT & AUTO 2020-09-01 13:15:00 [facility] DIFFERENTIAL Nikole [place] XR CHEST 1 VW 2020-08-19 13:29:53 Wendy Bull [facility] HB ECG ROUTINE & RHYTHM 2020-08-19 13:05:46 [facility] 2020-08-19 13:01:00 Wendy Bull [facility] TROPONIN I 2020-08-19 13:01:00 Wendy Bull [facility] acute hospital HEPATIC FUNCTION PANEL 2020-08-19 13:01:00 Wendy Bull [facility] ([id number]) (ALB,T.PRO,BILI Medical Branch T,BU/BC,ALT,AST,ALK PHOS) BASIC METABOLIC PANEL (NA, 2020-08-19 13:01:00 Wendy Bull [facility] K, CL, CO2, GLUCOSE, BUN, Medica l Branch CREATININE, CA) CBC WITH DIFF 2020-08-19 13:01:00 Wendy Bull [facility] acute hospital N-TERMINAL PRO-BNP 2020-08-19 13:01:00 Wendy Bull [facility] COVID-19 (ID NOW RAPID 2020-08-19 13:01:00 Wendy Bull [facility] TESTING) [facility] CONSENT/REFUSAL FOR 2020-08-19 12:21:55 Doctor Unassigned, [facility] DIAGNOSIS AND TREATMENT [place] AMMONIA, PLASMA 2020-06-26 01:01:00 [facility] PROTHROMBIN TIME / INR 2020-06-26 01:01:00 Carolina [facility] XR CHEST 1 VW 2020-06-25 23:46:19 [facility] LIPASE 2020-06-25 23:43:00 [facility] MAGNESIUM 2020-06-25 23:43:00 [facility] TROPONIN I 2020-06-25 23:43:00 [facility] HEPATIC FUNCTION PANEL 2020-06-25 23:43:00 Carolina San [facility] ([id number]) (ALB,T.PRO,BILI [facility] T,BU/BC,ALT,AST,ALK PHOS) BASIC METABOLIC PANEL (NA, 2020-06-25 23:43:00 [place] [facility] K, CL, CO2, GLUCOSE, BUN, Medica l Branch CREATININE, CA) CBC WITH DIFF 2020-06-25 23:43:00 [place] [facility] URINALYSIS 2020-06-25 23:43:00 [facility] N-TERMINAL PRO-BNP 2020-06-25 23:43:00 [facility] COVID-19 (ID NOW RAPID 2020-06-25 23:43:00 Carolina [facility] TESTING) [facility] NOTICE OF PRIVACY 2020-06-25 22:41:45 Doctor Unassigned, [facility] PRACTICES [facility] CONSENT/REFUSAL FOR 2020-06-25 22:41:29 Trung Conte [facility] DIAGNOSIS AND TREATMENT [facility] HOME HEALTH - OTHER 2019-02-08 05:01:00 Trung Conte [facility] HEALTH - OTHER 2019-01-31 05:01:00 Trung Conte [facility] POCT HEMOGLOBIN A1C TEST 2019-01-21 21:30:00 Brenda Rod [facility] DME/SUPPLY JUSTIFICATION 2019-01-17 05:01:00 Doctor Arboleda [facility] HEALTH - OTHER 2019-01-07 05:01:00 Trung Conte [facility] - OTHER 2019-01-02 05:01:00 Doctor [facility] HEALTH - OTHER 2018-12-28 05:01:00 Trung Conte [facility] INSURANCE CORRESPONDENCE 2018-12-17 05:01:00 Doctor Arboleda [facility] PATIENT QUESTIONNAIRE 2016-10-19 05:01:00 Gisela Conte [facility] SCANNED LAB RESULTS 2016-10-13 05:01:00 Trung Conte [facility] Plan of Care Planned Activity Planned Date Details Comments Source Future Scheduled 2028-06-12 Screening for malignant [facility] Test 00:00:00 neoplasm of colon Medical Ce nter (procedure) [code = 301566032] Future Scheduled 2028-06-12 Screening for malignant [facility] Test 00:00:00 neoplasm of colon Medical Ce nter (procedure) [code = 621487014] Future Scheduled 2028-06-12 Screening for malignant [facility] Test 00:00:00 neoplasm of colon Medical Ce nter (procedure) [code = 748221396] Future Scheduled 2028-06-12 Screening for malignant [facility] Test 00:00:00 neoplasm of colon Medical Ce nter (procedure) [code = 166778645] Future Scheduled 2028-06-12 Screening for malignant [facility] Test 00:00:00 neoplasm of colon Medical Ce nter (procedure) [code = 378628381] Future Scheduled 2026-09-18 DTAP/TDAP/TD VACCINES CH I [...] Influenza Seasonal (>/= 19 yrs)] Future Scheduled 2022-02-26 IMM Influenza Seasonal [facility] 00:00:00 (>/= 19 yrs) [code = IMM Influenza Seasonal (>/= 19 yrs)] Future Scheduled 2022-01-27 INFLUENZA VACCINE (#1) [facility]00 [code = INFLUENZA Medical Ce nter VACCINE (#1)] Future Scheduled 2022-01-27 INFLUENZA VACCINE (#1) [facility] 00:00:00 [code = INFLUENZA Medical Ce nter VACCINE (#1)] Future Scheduled 2021-12-20 Lipid panel (procedure) [facility] Test 00:00:00 [code = 19758829] Medical Ce nter Future Scheduled 2021-12-20 Lipid panel (procedure) [facility] Test 00:00:00 [code = 00974387] Medical Ce nter Future Scheduled 2021-12-20 Lipid panel (procedure) [facility] Test 00:00:00 [code = 61787977] Medical Ce nter Future Scheduled [address] [facility] Test 00:00:00 aneurysm screening Medical C enter (procedure) [code = 219101365] Future Scheduled 2021 PNEUMOCOCCAL 65+ YRS ([address] [facility] Test 00:00:00 - PPSV23 or PCV20) Medical C enter [code = PNEUMOCOCCAL 65+ YRS (2 - PPSV23 or PCV20)] Future Scheduled 2021 Imm Pneumococcal 65+ (1 [facility] Test 00:00:00 - PCV) [code = Imm Pneumococcal 65+ (1 - PCV)] Future Scheduled [address] [facility] Test 00:00:00 aneurysm screening Medical C enter (procedure) [code = 773507438] Future Scheduled 2021 PNEUMOCOCCAL 65+ YRS ([address] [facility] Test 00:00:00 - PPSV23 or PCV20) Medical C enter [code = PNEUMOCOCCAL 65+ YRS (2 - PPSV23 or PCV20)] Future Scheduled 2021 Imm Pneumococcal 65+ (1 [facility] Test 00:00:00 - PCV) [code = Imm Pneumococcal 65+ (1 - PCV)] Future Scheduled 2021-06-07 COVID-19 VACCINE (4 - [facility]00 Booster for Pfizer Medical C enter series) [code = COVID-19 VACCINE (4 - Booster for Pfizer series)] Future Scheduled 2021-06-07 COVID-19 VACCINE (4 - [...] RISK Medical C enter SCREENING] Future Scheduled 2021-05-[address] [facility]00 2) [code = SHINGLES [facility] VACCINES (1 of 2)] Future Scheduled 2006 SHINGLES VACCINES ([address] [facility] 00:00:00 2) [code = SHINGLES Medical Center VACCINES (1 of 2)] Future Scheduled 2006 Screening for malignant [facility] Test 00:00:00 neoplasm of colon (procedure) [code = 346317438] Future Scheduled 2006 SHINGLES VACCINES ([address] [facility] Test 00:00:00 2) [code = SHINGLES [facility] VACCINES (1 of 2)] Future Scheduled 2006 Screening for malignant [facility] Test 00:00:00 neoplasm of colon (procedure) [code = 025761970] Future Scheduled 2006 Screening for malignant [facility] Test 00:00:00 neoplasm of colon (procedure) [code = 685672676] Future Scheduled 1961 COVID-19 Vaccine (1) [facility] 00:00:00 [code = COVID-19 Vaccine (1)] Future Scheduled 1957-05-31 COVID-19 Vaccine (#1) [facility] 00:00:00 [code = COVID-19 Vaccine (#1)] Future Scheduled 1957-05-31 COVID-19 Vaccine (#1) [facility] [...] colon Medical Ce nter (procedure) [code = 130569854] Future Scheduled 1956 Screening for malignant [facility] Test 00:00:00 neoplasm of colon Medical Ce nter (procedure) [code = 522665933] Future Scheduled 1956 Sigmoidoscopy [code = [facility]:00 S[facility]oidoscopy] Medical Cente r Future Scheduled 1956 Fluoride Varnish [code [facility] 00:00:00 = Fluoride Varnish] Future Scheduled 1956 CT Colonography (combo) [facility] Test 00:00:00 [code = CT Colonography [facility]i [facility] Center (combo)] Future Scheduled 1956 Screening for malignant [facility] Test 00:00:00 neoplasm of colon Medical Ce nter (procedure) [code = 878858128] Future Scheduled 1956 Screening for malignant [facility] Test 00:00:00 neoplasm of colon Medical Ce nter (procedure) [code = 010449776] Future Scheduled 1956 Sigmoidoscopy [code = [facility] Sigmoidoscopy] Medical Cente r Encounters Start End Encounter Admission Attending Care Care Encounter Source Date/Time Date/Time Type Type Clinicians Facility Department ID 2021-03-28 Emergency [facility] [id number] Univers 08:04:12 ity of [facility] 2021-03-27 Emergency [facility] [id number] Univers 20:25:53 [facility] 2019-12-24 Inpatient ER JOSÉ ANTONIO MYERS [facility] [id number] [facility] 16:51:00 JOSH 2022-03-23 2022-03-23 [facility] [id number] SLE 00:00:00 00:00:00 2022-03-09 2022-03-09 Outpatient EL SLE [facility] [id number] SLE 00:00:00 00:00:00 2022-03-09 2022-03-09 [facility] [id number] SLE 00:00:00 00:00:00 [facility] 2022-03-09 2022-03-09 [facility] [id number] [facility] 00:00:00 00:00:00 [facility] 2022-02-01 2022-02-01 Documentat Idris [facility] [id number] [facility] 00[facility]00[facility]00 [facility] 2022-01-21 2022-01-21 Rios Stringer [facility] [id number] [facility] 00:00:[address] [facility] 2022-01-21 2022-01-21 Rios Stringer [facility] [id number] [facility] 00:00:00 [facility] 2022-01-18 2022-01-18 Documentcarla Guzmán [facility] [id number] 00:[facility]00 00:00:00 [facility] 2022-01-18 2022-01-18 Rios Guzmán [facility] [id number] 00:[facility]00 00:00:00 [facility] 2022-01-17 2022-01-17 Rios Irvin [facility] [id number] 00:[facility] 2022-01-17 2022-01-17 Document Albaro [facility] [id number] 00:[facility] 00[facility]00 [facility] 2022-01-13 2022-01-13 Document Ramirez [facility] [id number] 00:00[facility]00 00:00:00 [facility] 2022-01-13 2022-01-13 Document [facility] [id number] 00:[facility]00 00:00:00 [facility] 2022-01-10 2022-01-10 [facility]Carte[facility] CareadoJ[facility] [id number] 00:00[facility]00 00:00:00 [facility] 2022-01-10 2022-01-10 DocumentCarteret Health CareadoJ[facility] [id number] 00:00[facility]00 00:00:00 [facility] 2022-01-07 2022-01-07 DocumentCarteret Health CareadoJ[facility] [id number] 00:00[facility]00 00:00:00 [facility] 2022-01-07 2022-01-07 Document SteinbergJORD[facility] [id number] 00:00[facility]00 00:00:00 [facility] 2022-01-04 2022-01-04 [facility] [id number] 11:53:22 23:59:00 Encounter [facility] 2022-01-04 2022-01-04 Outpatient PADMINI [facility] [id number] SLE 11:53:22 23:59:00 [facility] 2022-01-04 2022-01-04 [facility] [id number] 11:53:22 23:59:00 Encounter [facility] 2021-12-26 2021-12-26 Emergency X LILIAN, [facility] ERT [id number] Univers 15:39:00 18:19:00 FELISHA schmitt [facility] 2021-12-26 2021-12-26 Emergency [facility] [id number] Univers 15:39:00 18:19:00 Felisha Calderon [facility] [id number] i david [facility] [id number] [facility] [id number] [place] [id number] Branch 2021-12-23 2021-12-23 Documentat SteinbergJORD[facility] [id number] 00:00[facility]00 00:00:00 [facility] 2021-12-23 2021-12-23 Toni Steinberg [facility] [id number] 00:00:00 00:00:00 Only [facility] 2021-12-23 2021-12-23 Documentat [facility]JORD[facility] [id number] 00:00:00 00:00:00 [facility] 2021-12-23 2021-12-23 Toni [facility]bergJ[facility] [id number] 00:00:00 00:00:00 Only [facility] 2021-12-22 2021-12-22 Office Padmini [facility] [id number] 11:00:00 11:36:33 Visit [facility] 2021-12-22 2021-12-22 Office PING Washington [facility] [id number] 11:00:00 11:36:33 Visit [facility] 2021-12-22 2021-12-22 Outpatient JOSÉ ANTONIO GREENFIELD SLECarmine [id number] SLECarmine 10:31:24 11:36:33 [facility] 2021-12-22 2021-12-22 Abstract Padmini [facility] [id number] 00:00:00 00:00:00 [facility] 2021-12-22 2021-12-22 Documentat Guzmán, [facility] [id number] 00:00:00 00:00:00 [facility] 2021-12-22 2021-12-22 Bertha Evelynjazmín, [facility] [id number] 00:00:00 00:00:00 [facility] 2021-12-22 2021-12-22 Documentat Guzmán, [facility] [id number] 00:00:00 00:00:00 [facility] 2021-12-21 2021-12-21 Orders Idris [facility] [id number] 00:00:00 00:00:00 Only [facility] 2021-12-21 2021-12-21 Orders Idris [facility] [id number] 00:00:00 00:00:00 Only [facility] 2021-12-21 2021-12-21 Orders Idris [facility] [id number] 00:00:00 00:00:00 Only [facility] 2021-12-21 2021-12-21 Orders Idris [facility] [id number] 00:00:00 00:00:00 Only [facility] 2021-12-20 2021-12-20 Maxine [facility] [id number] 00:00[facility]00 00:00:00 [facility] 2021-12-20 2021-12-20 Document [facility] [id number] 00:00:00 00:00:00 [facility] 2021-12-16 2021-12-16 Documentat Idris [facility] [id number] 00:00:00 00:00:00 [facility] 2021-12-16 2021-12-16 Documentat Idris, [facility] [id number] 00:00:00 00:00:00 [facility] 2021-12-09 2021-12-09 Documentat RamirezJORDAN [facility] [id number] 00:00:00 00:00:00 [facility] 2021-12-09 2021-12-09 Documentat Guzmán, [facility] [id number] [facility] 00:00:00 [facility] 2021-12-08 2021-12-08 Outpatient EL SLE SLEH [id number] SLEH 00:00:00 00:00:00 2021-12-06 2021-12-06 [facility] [id number] [facility] [facility] 09:26:33 23:59:00 Encounter [facility] 2021-12-06 2021-12-06 Outpatient EL PADMINI, SLE SLE [id number] SLEH 09:26:33 23:59:00 [facility] 2021-12-06 2021-12-06 [facility] [id number] 09:26:33 23:59:00 Encounter [facility] 2021-12-06 2021-12-06 [facility] Daniloca [facility] [id number] 13:40:00 13:50:00 Only [facility] 2021-12-06 2021-12-06 Orders [facility] [id number] 13:40:00 13:50:00 Only [facility] 2021-12-06 2021-12-06 Outpatient EL SLE SLE [id number] SLEH 13:38:35 13:38:35 2021-12-06 2021-12-06 [facility] [id number] [facility] 09:25:54 09:25:54 Encounter [facility] 2021-12-06 2021-12-06 Outpatient JOSÉ ANTONIO GREENFIELD SLE [id number] SLEH 09:25:54 09:25:54 [facility] 2021-12-06 2021-12-06 [facility] [id number] 09:25:54 09:25:54 Encounter [facility] 2021-12-06 2021-12-06 [facility] [id number] 09:25:37 09:25:37 Encounter [facility] 2021-12-06 2021-12-06 Outpatient JOSÉ ANTONIO GREENFIELD SLE [id number] SLEH 09:25:37 09:25:37 [facility] 2021-12-06 2021-12-06 [facility] [id number] 09:25:37 09:25:37 Encounter [facility] 2021-12-06 2021-12-06 [facility] [id number] 00:00:00 00:00:00 [facility] 2021-12-06 2021-12-06 [facility] [id number] 00:00:00 00:00:00 [facility] 2021-11-25 2021-11-25 Outpatient EL SLEH SLE [id number] SLEH 00:00:00 00:00:00 2021-11-25 2021-11-25 Outpatient PING CUNNINGHAMADERI, SLEH SLEH [id number] [facility]H 00:00:00 00:00:00 [facility] 2021-11-25 2021-11-25 Outpatient PING CUNNINGHAMADERI, SLEH SLEH [id number] [facility]H 00:00:00 00:00:00 [facility] 2021-11-25 2021-11-25 Outpatient PING CUNNINGHAMADERI, SLEH SLEH [id number] [facility]H 00:00:00 00:00:00 [facility] 2021-11-08 2021-11-08 Documentat Guzmán, [facility] [id number] [facility]:00[facility]00 00:00:00 [facility] 2021-11-08 2021-11-08 Documentat Guzmán, [facility] [id number] 00:00:00 00:00:00 [facility] 2021-11-08 2021-11-08 Documentat Guzmán, [facility] [id number] 00:00:00 00:00:00 [facility] 2021-11-08 2021-11-08 Documentat Guzmán, [facility] [id number] 00:00:00 00:00:00 [facility] 2021-10-22 2021-10-22 Outpatient [facility] [id number] [facility] 09:00:00 09:00:00 [id number] 2021-09-30 2021-09-30 Documentat Guzmán, [facility] [id number] [id number] 00:00:00 00:00:00 [facility] 2021-09-30 2021-09-30 Documentat Guzmán, [facility] [id number] 00:00:00 00:00:00 [facility] 2021-09-28 2021-09-28 Telephone Albaro [facility] [id number] 00:00:00 00:00:00 [facility] 2021-09-28 2021-09-28 Telephone Albaro [facility] [id number] 00:00:00 00:00:00 [facility] 2021-09-08 2021-09-08 Outpatient JOSÉ ANTONIO GREENFIELD SLE [id number] SLE 09:55:52 10:29:39 [facility] 2021-09-08 2021-09-08 Christiano [place] [facility] [id number] 09:30:00 10:29:39 Visit [facility] 2021-09-08 2021-09-08 Office Padmini, [facility] [id number] 09:30:00 10:29:39 Visit [facility] 2021-09-08 2021-09-08 Orders Steinberg, [facility] [id number] 00:00:00 00:00:00 Only [facility] 2021-09-08 2021-09-08 Orders Steinberg, [facility] [id number] 00:00:00 00:00:00 Only [facility] 2021-09-06 2021-09-06 Documentcarla [facility] [id number] [facility]:00[facility]00 00:00:00 [facility] 2021-09-06 2021-09-06 Documentcarla Guzmán [facility] [id number] 00:00:00 00:00:00 [facility] 2021-09-02 2021-09-02 Documentat Steinberg, [facility] [id number] 00:00:00 00:00:00 [facility] 2021-09-02 2021-09-02 Documentcarla Steinberg [facility] [id number] 00:00:00 00:00:00 [facility] 2021-08-30 2021-08-30 Documentcarla [facility] [id number] 00:00:00 00:00:00 [facility] 2021-08-30 2021-08-30 Documentcarla Steinberg, [facility] [id number] 00:00:00 00:00:00 [facility] 2021-08-30 2021-08-30 Document [facility] [id number] 00:00:00 00:00:00 [facility] 2021-08-30 2021-08-30 Documentat Idris, [facility] [id number] 00:00:00 00:00:[address] [facility] 2021-08-26 2021-08-26 [facility] [id number] 08:46:32 23:59:00 Encounter [facility] 2021-08-26 2021-08-26 Outpatient PING [place] [facility] SLE [id number] SLEH 08:46:32 23:59:00 [facility] 2021-08-26 2021-08-26 [facility] [id number] 08:46:32 23:59:00 Encounter [facility] 2021-08-26 2021-08-26 Orders [facility], [facility] [id number] 09:00:00 09:10:00 Only [facility] 2021-08-26 2021-08-26 Orders [facility], [facility] [id number] 09:00:00 09:10:00 Only [facility] 2021-08-26 2021-08-26 [facility] [id number] 08:42:22 08:45:00 Encounter [facility] 2021-08-26 2021-08-26 Outpatient PING [place] [facility] [id number] SLE 08:42:22 08:45:00 [facility] 2021-08-26 2021-08-26 [facility] [id number] 08:42:22 08:45:00 Encounter [facility] 2021-08-26 2021-08-26 Outpatient EL SLE SLE [id number] SLEH 08:20:55 08:20:55 2021-08-26 2021-08-26 Outpatient EL SLE SLE [id number] SLEH 00:00:00 00:00:00 2021-08-16 2021-08-16 Documentat Guzmán, [facility] [id number] [facility]:00[facility]00 00:00:00 [facility] 2021-08-16 2021-08-16 Documentat Guzmán, [facility] [id number] 00:00:00 00:00:00 [facility] 2021-08-16 2021-08-16 Documentat Guzmán, [facility] [id number] 00:00:00 00:00:00 [facility] 2021-08-16 2021-08-16 Documentat Guzmán, [facility] [id number] 00:00:00 00:00:00 [facility] 2021-08-05 2021-08-05 [facility] Care[facility], [facility] [id number] 00:00:00 00:00:00 [facility] 2021-08-05 2021-08-05 Document Steinberg, [facility] [id number] 00:00:00 00:00:00 [facility] 2021-08-02 2021-08-02 Toni Steinberg, [facility] [id number] 00:00:00 00:00:00 Only [facility] 2021-08-02 2021-08-02 Orders Steinberg, [facility] [id number] 00:00:00 00:00:00 Only [facility] 2021-07-28 2021-07-28 Outpatient PING [place] [facility] [id number] SLE 09:06:24 09:58:24 [facility] 2021-07-28 2021-07-28 Office Padmini [facility] [id number] 09:00:00 09:58:24 Visit [facility] 2021-07-28 2021-07-28 Office Padmini [facility] [id number] 09:00:00 09:58:24 Visit Amberly [facility] 2021-07-27 2021-07-27 Documentat Guzmán, [facility] [id number] 00:00:00 00:00:00 [facility] 2021-07-27 2021-07-27 Orders Steinberg, [facility] [id number] 00:00:00 00:00:00 Only [facility] 2021-07-27 2021-07-27 Documentat Guzmán, [facility] [id number] 00:00:00 00:00:00 [facility] 2021-07-27 2021-07-27 Orders Steinberg, [facility] [id number] 00:00:00 00:00:00 Only [facility] 2021-07-26 2021-07-26 Documentat Guzmán, [facility] [id number] 00:00:00 00:00:00 [facility] 2021-07-26 2021-07-26 Documentat Guzmán, [facility] [id number] 00:00:00 00:00:00 [facility] 2021-07-26 2021-07-26 Documentat Guzmán, [facility] [id number] 00:00:00 00:00:00 [facility] 2021-07-26 2021-07-26 Documentat Guzmán, [facility] [id number] 00:00:00 00:00:00 [facility] 2021-07-14 2021-07-14 Outpatient SLE SLE [id number] SLEH 00:00:00 00:00:00 2021-07-12 2021-07-12 Documentat Idris, [facility] [id number] 00:00:00 00:00:00 [facility] 2021-07-12 2021-07-12 [facility] [id number] 00:00:00 00:00:00 [facility] 2021-07-07 2021-07-07 Outpatient EL SLE SLEH [id number] SLEH 00:00:00 00:00:00 2021-07-07 2021-07-07 [facility] [id number] 00:00:00 00:00:[address] [facility] 2021-07-07 2021-07-07 [facility] [id number] 00:00[facility]00 00:00:00 [facility] 2021-06-28 2021-06-28 [facility] [id number] 00:00:00 00:00:00 [facility] 2021-06-28 2021-06-28 [facility] [id number] 00:00:00 00:00:00 [facility] 2021-06-27 2021-06-27 Telephone [facility] [id number] [facility] 00:00:00 00:00:00 [facility] 2021-06-27 2021-06-27 Telephone [facility] [id number] 00:00:00 00:00:00 [facility] 2021-05-24 2021-05-24 Tamiko Chu [facility] [id number] [id number] Univers 00:00:00 00:00:00 Pearl VENEGAS [id number] aung Choudhury [id number] Anyi REZA [phone] Al dical [address] 2021-05-14 2021-05-14 [facility] [id number] 00:00:00 00:00:00 [facility] 2021-05-14 2021-05-14 Documentcarla Guzmán [facility] [id number] 00:00:00 00:00:[address] [facility] 2021-05-13 2021-05-13 Abstract Elsa [facility] [id number] [facility] 00:00:00 00:00:00 [facility] 2021-05-13 2021-05-13 Abstract Elsa, [facility] [id number] 00:00:00 00:00:00 [facility] 2021-05-12 2021-05-12 Outpatient [facility] SLE [id number] SLEH 00:00:00 00:00:00 2021-05-10 2021-05-10 Telephone [facility] [id number] 00:00:00 00:00:00 [facility] 2021-05-10 2021-05-10 Telephone Idris [facility] [id number] 00:00:00 00:00:00 [facility] 2021-05-03 2021-05-03 Documentat Idris [facility] [id number] 00:00:00 00:00:00 [facility] 2021-05-03 2021-05-03 Documentat [facility] [id number] 00:00:00 00:00:00 [facility] 2021-04-29 2021-04-29 [facility] [id number] 10:09:55 23:59:00 Encounter [facility] 2021-04-29 2021-04-29 [facility] Padmini [facility] [id number] 10:09:55 23:59:00 Encounter [facility] 2021-04-29 2021-04-29 Outpatient PING [place] SLE SLE [id number] SLEH 10:09:55 23:59:00 [facility] 2021-04-29 2021-04-29 Orders [facility] [id number] 12:00:00 12:10:00 Only [facility] 2021-04-29 2021-04-29 Orders Daniloca, [facility] [id number] 12:00:00 12:10:00 Only [facility] 2021-04-29 2021-04-29 Outpatient PING [place] SLE SLE [id number] SLEH 10:09:10 10:08:00 [facility] 2021-04-29 2021-04-29 [facility] [id number] 10:00:00 10:08:00 Encounter [facility] 2021-04-29 2021-04-29 [facility] [id number] 10:00:00 10:08:00 Encounter [facility] 2021-04-29 2021-04-29 [facility] [id number] 09:35:14 09:59:00 Encounter [facility] 2021-04-29 2021-04-29 [facility] [id number] 09:35:14 09:59:00 Encounter [facility] 2021-04-29 2021-04-29 Outpatient PING [place] SLE SLE [id number] SLE 09:35:14 09:59:00 [facility] 2021-04-29 2021-04-29 Outpatient PING [place] SLE SLE [id number] SLEH 09:35:00 09:34:00 [facility] 2021-04-29 2021-04-29 [facility] [id number] 09:00:00 09:34:00 Encounter [facility] 2021-04-29 2021-04-29 [facility] Padmini [facility] [id number] 09:00:00 09:34:00 Encounter [facility] 2021-04-29 2021-04-29 Outpatient SLE SLE [id number] SLEH 08:33:09 08:33:09 2021-04-29 2021-04-29 Outpatient PADMINI [facility] SLE [id number] SLE 00:00:00 00:00:00 [facility] 2021-04-02 2021-04-02 Telephone [facility] 1.2.840.114 [id number] [facility] 00:00:00 00:00:00 Pearl VENEGAS 350.1.13.10 i ty of [place] [id number] [facility] [phone] Al dical [address] 2021-04-01 2021-04-01 Emergency X [facility] ERT [id number] Univers 13:07:00 15:37:00 CHANDRAKANT schmitt [facility] 2021-04-01 2021-04-01 Emergency [facility] [id number] Univers 13:07:00 15:37:00 Chandrakant VENEGAS 350.1.13.10 i ty [address] [facility] [id number] [facility] [id number] [address] 2021-03-18 2021-03-18 Orders [facility] [id number] 00:00:00 00:00:00 Only [facility] 2021-03-18 2021-03-18 Orders [facility] [id number] 00:00:00 00:00:00 Only [facility] 2021-03-16 2021-03-16 Refill [facility] 1.2.840.114 [id number] Univers 00:00:00 00:00:00 Pearl Venegas 350.1.13.10 i ty of [id number] [id number] Al dical nal 044 [facility] 2021-03-15 2021-03-15 Tamiko Chu [facility] 1.2.840.114 [id number] Univers 00:00:00 00:00:00 Pearl Venegas 350.1.13.10 i ty of [id number] [id number] Al dical nal 044 [facility] 2021-03-12 2021-03-12 [facility] [id number] 12:16:00 15:05:00 Encounter [facility] 2021-03-12 2021-03-12 [facility] [id number] 12:16:00 15:05:00 Encounter [facility] 2021-03-12 2021-03-12 Outpatient [facility] Radiology [id number] [facility] 06:21:33 15:05:00 [facility] 2021-03-12 2021-03-12 Abstract [facility] [id number] 00:00:00 00:00:00 [facility] 2021-03-12 2021-03-12 Abstract [facility] [id number] 00:00:00 00:00:00 [facility] 2021-03-10 2021-03-10 Documentat [facility]JORD[facility] [id number] 00:00:00 00:00:[address] [facility] 2021-03-10 2021-03-10 Toni More [facility] [id number] 00:00:00 00:00:[address] [facility] 2021-03-10 2021-03-10 Documentat [facility] [id number] 00:00:00 00:00:[address] [facility] 2021-03-10 2021-03-10 Orders Derik [facility] [id number] 00:00:00 00:00:[address] [facility] 2021-02-23 2021-02-23 [facility] [id number] 09:28:20 23:59:00 Encounter [facility] 2021-02-23 2021-02-23 [facility] [id number] 09:28:20 23:59:00 Encounter [facility] 2021-02-23 2021-02-23 Outpatient PING [place] [facility] [id number] SLE 00:00:00 23:59:00 [facility] 2021-02-23 2021-02-23 Outpatient [facility] [id number] SLE 10:02:57 10:02:57 2021-02-23 2021-02-23 Outside [facility] [id number] 00:00:00 00:00:00 Orders [facility] 2021-02-23 2021-02-23 Outside [facility] [id number] 00:00:00 00:00:00 Orders [facility] 2021-02-05 2021-02-05 Outpatient Juan J GUIDRY [facility] [id number] Univers 10:50:00 10:50:00 TAM schmitt [facility] 2021-02-05 2021-02-05 Imm/Inj Nurse, Adc Pob Immunization [facility] 1.2.840.114 [id number] Univers 10:46:45 10:47:11 Visit Tam [facility].1.13 .[facility] [id number] Anyi Reza [id number] [address] 2021-02-04 2021-02-04 Documentat Ramirez [facility] [id number] [id number] 00:00:00 00:00:[address] [facility] 2021-02-04 2021-02-04 Documentat Guzmán, [facility] [id number] 00:00:00 00:00:[address] [facility] 2021-02-04 2021-02-04 Documentat Guzmán, [facility] [id number] 00:00:00 00:00:[address] [facility] 2021-02-03 2021-02-03 Office Padmini [facility] [id number] 10:00:00 10:30:00 Visit [facility] 2021-02-03 2021-02-03 Outpatient SLEH SLEH [id number] [facility] 00:00:00 00:00:00 2021-02-03 2021-02-03 Documentcarla [facility] [id number] 00:00:00 00:00:00 devon [facility] 2021-02-03 2021-02-03 Rios Sheffield [facility] [id number] 00:00:00 00:00:00 devon [facility] 2021-02-03 2021-02-03 [facility] Idris [facility] [id number] 00:00:00 00:00:00 Only [facility] 2021-02-02 2021-02-02 [place] Ramirez, [facility] [id number] 00:00:00 00:00:00 [facility] 2021-01-28 2021-01-28 Documentat Ramirez, [facility] [id number] 00:00:00 00:00:[address] [facility] 2021-01-25 2021-01-25 Rios Steinberg [facility] [id number] 00:00:00 00:00:00 [facility] 2021-01-21 2021-01-21 [facility] Padmini [facility] [id number] 10:27:08 23:59:00 Encounter [facility] 2021-01-21 2021-01-21 [facility] Evelynsergioca, [facility] [id number] 10:27:00 10:27:00 Encounter [facility] 2021-01-21 2021-01-21 Orders PING [place], [facility] [id number] 09:58:59 10:08:59 Only [facility] 2021-01-21 2021-01-21 Outpatient KHADERI, SLEH SLEH [id number] [facility] 00:00:00 00:00:00 [facility] 2021-01-21 2021-01-21 Outpatient KHADERI, SLEH SLEH [id number] [facility] 00:00:00 00:00:00 [facility] 2021-01-21 2021-01-21 Outpatient EL SLEH SLEH [id number] [facility]H 00:00:00 00:00:00 2020-12-30 2020-12-30 Outpatient SLEH SLEH [id number] [facility] 00:00:00 00:00:00 2020-12-17 2020-12-17 Outpatient EL SLEH SLEH [id number] [facility] 00:00:00 00:00:00 2020-12-17 2020-12-17 Outpatient EVELYNADERI, SLEH SLEH [id number] [facility] 00:00:00 00:00:00 [facility] 2020-12-17 2020-12-17 Outpatient EVELYNADERI, SLEH SLEH [id number] [facility] 00:00:00 00:00:00 [facility] 2020-12-02 2020-12-02 Documentat Emil, [facility] [id number] [facility] 00:00:00 00:00:00 [facility] 2020-11-26 2020-11-26 Hospital PING [place], [facility] [id number] [facility] [address] 13:14:00 18:00:00 Encounter [facility] 2020-11-26 2020-11-26 Outpatient EL [facility] [id number] [facility] 00:00:00 00:00:00 2020-11-18 2020-11-18 Abstract Yohannes [facility] [id number] [facility] [address] 00:00:00 00:00:00 [facility] 2020-11-16 2020-11-16 Rios Guzmán [facility] [id number] [facility] 00:00:00 00:00:[address] [facility] 2020-11-16 2020-11-16 Telephone Emil [facility] [id number] [facility] 00:00[facility]00 00:00:00 [facility] 2020-11-10 2020-11-10 Orders Idris [facility] [id number] 00:00:00 00:00:00 Only [facility] 2020-11-05 2020-11-05 [facility] [id number] 00:00:00 00:00:[address] [facility] 2020-11-04 2020-11-04 Office System, [facility] [id number] 09:38:44 10:38:44 Visit Provider [facility] 2020-11-04 2020-11-04 Outpatient SLE SLE [id number] [facility] 00:00:00 00:00:00 2020-10-28 2020-10-28 Office [place] [facility] [id number] 08:37:21 10:38:34 Visit Amberly Alexandre [facility] 2020-10-28 2020-10-28 Outpatient SLE SLE [id number] [facility] 00:00:00 00:00:00 2020-10-28 2020-10-28 Outpatient SLE SLE [id number] [facility] 00:00:00 00:00:00 2020-10-28 2020-10-28 Telephone Albaro [facility] [id number] 00:[facility] 00:00:00 [facility] 2020-10-28 2020-10-28 Documentat [facility] [id number] [facility] 00:00:[address] [facility] 2020-10-27 2020-10-27 Telephone Ramirez [facility] [id number] 00:[facility]00 00:00:00 [facility] 2020-10-21 2020-10-21 Outpatient SLEH [facility] [id number] [facility] 00:00:00 00:00:00 2020-10-21 2020-10-21 [facility] 1.2.840.114 [id number] [facility] 00:00:00 00:00:00 Pearl Venegas 350.1.13.10 i ty [facility] [phone] Al dical nal [address] [place] [address] 2020-10-20 2020-10-20 Orders Idris [facility] [id number] 00:00:00 00:00:00 Only [facility] 2020-10-19 2020-10-19 Telephone [facility] [id number] 00:00:00 00:00:00 [facility] 2020-10-19 2020-10-19 [id number] [facility]00 00:00:[address] [facility] 2020-10-15 2020-10-15 Documentat [facility] [id number] 00:00:00 00:00:[address] [facility] 2020-10-14 2020-10-14 Telemedici [facility] 1.2.840.114 [id number] [facility] 11:21:55 11:27:44 ne Visit Pearl Venegas 350.1.13.10 it[place] [phone] Al dical [address] 2020-10-14 2020-10-14 [facility] [id number] Univers 09:20:00 09:20:00 PEARL [id number] [facility] 2020-10-14 2020-10-14 Outpatient [facility] [id number] Univers 09:20:00 09:20:00 PEARL [facility] 2020-10-13 2020-10-13 [facility] 1.2.840.114 [id number] Univers 00:00:00 00:00:00 Pearl Venegas 350.1.13.10 i david [place] 4.2.7.2.686 Anyi Reza [phone] Al dical [address] 2020-10-12 2020-10-12 Documentat [facility] [id number] 00:00:00 00:00:00 devon [facility] 2020-10-08 2020-10-08 [facility] [id number] 09:30:00 23:59:00 Encounter [facility] 2020-10-08 2020-10-08 Orders [facility] [id number] 10:50:16 11:05:16 Only [facility] 2020-10-08 2020-10-08 [facility] [id number] 08:45:00 09:29:00 Encounter [facility] 2020-10-08 2020-10-08 Outpatient EVELYNADERI, SLE SLE [id number] [facility] 00:00:00 00:00:00 [facility] 2020-10-08 2020-10-08 Outpatient EL EVELYNSERGIORI, SLE SLE [id number] [facility] 00:00:00 00:00:00 [facility] 2020-10-08 2020-10-08 Outpatient SLE SLE [id number] [facility] 00:00:00 00:00:00 2020-10-08 2020-10-08 Outpatient [place] SLE SLE [id number] SLE 00:00:00 00:00:00 [facility] 2020-10-08 2020-10-08 Outpatient PADMINI SLEH SLE [id number] SLE 00:00:00 00:00:00 [facility] 2020-10-08 2020-10-08 Outpatient PADMINI SLE SLE [id number] SLE 00:00:00 00:00:00 [facility] 2020-10-08 2020-10-08 Orders Idris [facility] [id number] 00:00:00 00:00:00 Only [facility] 2020-09-21 2020-09-21 Toni Steinberg [facility] [id number] 00:00:00 00:00:00 Only [facility] 2020-09-11 2020-09-11 Telephone Ruba [facility] [id number] 00:00[facility]00 00:00:00 [facility] 2020-09-21 2020-09-10 Inpatient Liang, HCAPM ENDO [id number] [facility] 07:00:00 11:10:20 Anil Avila [facility] 2020-09-10 2020-09-10 Documentat Ramirez [facility] [id number] 00:00:00 00:00:00 ion Jeffrey [facility] 2020-09-03 2020-09-03 Documentat Mauricio [facility] [id number] 00:00:00 00:00:00 ion Samira Arita [facility] 2020-09-02 2020-09-02 Documentat Emil [facility] [id number] [facility]:00 00:00:00 ion Marta Lindsey [facility] 2020-09-02 2020-09-02 Telephone Iker [facility] [id number] 00:00:00 00:00:00 [facility] 2020-09-01 2020-09-01 [facility] Tiny Dan [facility] [id number] 10:00:00 23:59:00 [facility] 2020-09-01 2020-09-01 Follow-Up PING Yeh [facility] [id number] 09:48:56 10:18:56 Nickie Agustin [facility] 2020-09-01 2020-09-01 Outpatient [facility] [id number] [facility] 00:00:00 00:00:00 2020-09-01 2020-09-01 Outpatient JOSE FRANCISCO WHITEHEAD [facility] [id number] SLE 00:00:00 00:00:00 2020-09-01 2020-09-01 Telephone Iker [facility] [id number] 00:00:00 00:00:00 [facility] 2020-09-01 2020-09-01 Documentat Mauricio [facility] [id number] 00:00:00 00:00:00 ion Samira Arita [facility] 2020-08-31 2020-08-31 Telephone Emil, [facility] [id number] 00:00:00 00:00:00 [facility] 2020-08-19 2020-08-19 Emergency [facility] 1.2.840.114 [id number] [facility] 07:35:00 10:07:00 Wendy Venegas 350.1.13.10 ity [facility] 4.2.7.2.686 [facility] [phone] [facility] 084 Branch 2020-08-19 2020-08-19 Emergency [facility] 1.2.840.114 [id number] 07:35:00 10:07:00 Wendy Venegas 350.1.13.10 [place] 4.2.7.2.686 [place] [phone] 084 2020-08-19 2020-08-19 Orders Doctor LICONA 1.2.840.114 [id number] Univers 00:00:00 00:00:00 Only Unassigned, TOY 350.1.13.10 it[place] [facility] 4.2.7.2.686 [place] as [phone] [address] 2020-08-19 2020-08-19 Orders Doctor MONAE 1.2.840.114 [id number] 00:00:00 00:00:00 Only Unassigned, TOY 350.1.13.10 [place] [facility] 4.2.7.2.686 [id number] [facility] 2020-08-03 2020-08-[address] [facility] 1.2.840.114 [id number] [facility] 00:00:00 00:00:00 Pearl Venegas 350.1.13.10 i ty [place] [phone] Al dical [address] 2020-08-03 2020-08-[address] [facility] 1.2.840.114 [id number] 00:00:00 00:00:00 Pearl Venegas 350.1.13.10 [place] 4.2.7.2.686 Professio [phone] [address] 2020-07-19 2020-07-19 Immunizati Covid [facility] [id number] 13:46:40 13:56:40 on [place] [facility] 2020-07-19 2020-07-19 Outpatient [facility] [id number] SLE 00:00:00 00:00:00 2020-07-19 2020-07-19 Documentat Estela [facility] [id number] [facility] St 00:00:00 00:00:00 devon [facility] 2020-07-18 2020-07-18 Outpatient [facility] SLE [id number] [facility] 00:00:00 00:00:00 2020-06-28 2020-06-28 Outpatient SLE SLE [id number] [facility] 00:00:00 00:00:00 2020-06-25 2020-06-25 Emergency [facility], [facility] [id number] [id number] [facility] 17:04:00 23:09:00 Carolina Venegas 350.1.13.10 ity [place].2.[place] [phone] [facility] [address] [place] 2020-06-25 2020-06-25 Emergency [facility], [facility] [id number] [id number] 17:04:00 23:09:00 Carolina Venegas 350.1.13.10 [place] 4.2.7.2.686 [place] [phone] 08 2020-06-25 2020-06-25 Orders Doctor MONAE 1.2.840.114 [id number] Univers 00:00:00 00:00:00 Only Unassigned, TOY 350.1.13.10 it[place] [facility] 4.2.7.2.686 Bryce as [phone] [facility] [address] [place] 2020-06-25 2020-06-25 Orders Doctor MONAE 1.2.840.114 [id number] 00:00:00 00:00:00 Only Unassigned, TOY 350.1.13.10 [place] [facility] 4.2.7.2.686 [phone] [facility] 2020-06-22 2020-06-22 [facility] 1.2.840.114 [id number] [facility] 00:00:00 00:00:00 Pearl Venegas 350.1.13.10 i ty of [place] 4.2.7.2.686 [facility] Professio [phone] Al dic[address] 2020-06-22 2020-06-[address] [facility] 1.2.840.114 [id number] 00:00:00 00:00:00 Pearl Venegas 350.1.13.10 [place] 4.2.7.2.686 Professio [phone] [address] 2020-03-13 2020-03-13 Outpatient EL SLEH SLEH [id number] [facility] 00:00:00 00:00:00 2020-03-13 2020-03-13 Outpatient SLEH SLEH [id number] [facility] 00:00:00 00:00:00 2020-03-13 2020-03-13 Outpatient JESSICA, SLEH SLEH [id number] [facility] 00:00:00 00:00:00 [facility] 2020-03-13 2020-03-13 Outpatient EL PADMINI, SLEH SLEH [id number] [facility] 00:00:00 00:00:00 [facility] 2020-02-18 2020-02-18 Outpatient SLEH SLEH [id number] [facility] 00:00:00 00:00:00 2020-02-18 2020-02-18 Outpatient EL SLEH SLEH [id number] [facility]H 00:00:00 00:00:00 2020-02-18 2020-02-18 Outpatient SLEH SLEH [id number] [facility] 00:00:00 00:00:00 2020-02-05 2020-02-05 Outpatient SLEH SLEH [id number] [facility] 00:00:00 00:00:00 2020-02-05 2020-02-05 Outpatient PADMINI, SLE SLEH [id number] [facility]H 00:00:00 00:00:00 [facility] 2020-02-05 2020-02-05 Outpatient SLEH SLEH [id number] [facility]H 00:00:00 00:00:00 2020-01-28 2020-01-28 Outpatient EL SLEH SLEH [id number] [facility] 00:00:00 00:00:00 2020-01-14 2020-01-14 Outpatient EL SLEH SLEH [id number] [facility] 00:00:00 00:00:00 2019-09-11 2019-09-[address] [facility] 1.2.840.114 [id number] [facility] 00:00:00 00:00:00 Pearl Venegas 350.1.13.10 i david of [place] 4.2.7.2.686 Anyi Reza [phone] [address] 2019-09-11 2019-09-[address] [facility] 1.2.840.114 [id number] 00:00:00 00:00:00 Pearl Venegas 350.1.13.10 [place] 4.2.7.2.686 Professio [phone] [address] 2019-08-20 2019-08-20 Outpatient SLEH SLEH [id number] [facility] 00:00:00 00:00:00 [id number] 2019-02-08 2019-02-08 Orders Doctor MONAE 1.2.840.114 [id number] Univers 00:00:00 00:00:00 Only Unassigned, TOY 350.1.13.10 it[place] [facility] 4.2.7.2.686 Bryce as [phone] [address] 2019-02-08 2019-02-08 Orders Doctor MONAE 1.2.840.114 [id number] 00:00:00 00:00:00 Only Unassigned, TOY 350.1.13.10 [place] [facility] 4.2.7.2.686 [id number] 009 2019-01-31 2019-01-31 Orders Doctor MONAE 1.2.840.114 [id number] [facility] 00:00:00 00:00:00 Only Unassigned, TOY 350.1.13.10 it[place] [facility] 4.2.7.2.686 Bryce as [phone] [address] 2019-01-31 2019-01-31 Orders Doctor MONAE 1.2.840.114 [id number] 00:00:00 00:00:00 Only Unassigned, TOY 350.1.13.10 [place] [facility] 4.2.7.2.686 [id number] 2019-01-23 2019-01-23 Telephone Brenda [facility] 1.2.840.114 [id number] [facility] 00:00:00 00:00:00 C Grant 350.1.13.10 i ty [place] [phone] Al dical [address] 2019-01-23 2019-01-23 Telephone Brenda Rod [facility] 1.2.840.114 [id number] 00:00:00 00:00:00 C [place] 350.1.13.10 [place] 4.2.7.2.686 Professio [phone] [address] 2019-01-21 2019-01-21 Office Brenda Rod [facility] 1.2.840.114 [id number] Univers 15:52:08 16:26:09 Visit C Ly 350.1.13.10 i ty [place].2.[place] [phone] [address] 2019-01-21 2019-01-21 Office Brenda Rod [facility] 1.2.840.114 [id number] 15:52:08 16:26:09 Visit C Ly 350.1.13.10 [place] 4.2.7.2.686 Professio [phone] [address] 2019-01-17 2019-01-17 Orders Doctor MONAE 1.2.840.114 [id number] Univers 00:00:00 00:00:00 Only Unassigned, TOY 350.1.13.10 it[place] [facility] 4.2.7.2.686 Bryce as [phone] [address] 2019-01-17 2019-01-17 Orders Doctor MONAE 1.2.840.114 [id number] 00:00:00 00:00:00 Only Unassigned, TOY 350.1.13.10 [place] [facility] [phone] [facility] 2019-01-07 2019-01-07 Telephone Brenda Rod [facility] 1.2.840.114 [id number] Univers 00:00:00 00:00:00 C Ly 350.1.13.10 i [place] [phone] [address] 2019-01-07 2019-01-07 Orders Doctor MONAE 1.2.840.114 [id number] Univers 00:00:00 00:00:00 Only Unassigned, TOY 350.1.13.10 it[place] [facility] 4.2.7.2.686 Bryce as [phone] [address] 2019-01-02 2019-01-02 Orders Doctor MONAE 1.2.840.114 [id number] Univers 00:00:00 00:00:00 Only Unassigned, TOY 350.1.13.10 it[place] [facility] 4.2.7.2.686 Bryce as [phone] [address] 2019-01-02 2019-01-02 Refill Brenda Rod [facility] 1.2.840.114 [id number] Univers 00:00:00 00:00:00 C [place] 350.1.13.10 i [place]2.[place] [phone] [address] 2019-01-02 2019-01-02 Orders Doctor MONAE 1.2.840.114 [id number] 00:00:00 00:00:00 Only Unassigned, TOY 350.1.13.10 [place] [facility] 4.2.7.2.686 [id number] [facility] 2018-12-28 2018-12-28 Orders Doctor LICONA 1.2.840.114 [id number] Univers 00:00:00 00:00:00 Only Unassigned, TOY 350.1.13.10 it[place] [facility] 4.2.7.2.686 Bryce as [phone] [address] 2018-12-28 2018-12-28 Orders Doctor LICONA 1.2.840.114 [id number] 00:00:00 00:00:00 Only Unassigned, TOY 350.1.13.10 [place] [facility] 4.2.7.2.686 [id number] [facility] 2018-12-21 2018-12-21 Brenda Amado [facility] 1.2.840.114 [id number] Univers 00:00:00 00:00:00 C [place] 350.1.13.10 i [place].2.[place] [phone] Al dic[address] 2018-12-17 2018-12-17 Orders Doctor LICONA 1.2.840.114 [id number] Univers 00:00:00 00:00:00 Only Unassigned, TOY 350.1.13.10 it[place] of [place] [facility] 4.2.7.2.686 Bryce as [phone] [address] 2016-10-19 2016-10-19 Orders Doctor MONAE Raygoza2.840.114 [id number] Univers 00:00:00 00:00:00 Only Unassigned, TOY 350.1.13.10 ity of [place] [facility] 4.2.7.2.686 Bryce as [phone] [place] [address] [address] 2016-10-19 2016-10-19 Orders Doctor MONAE Raygoza2.840.114 [id number] 00:00:00 00:00:00 Only Unassigned, TOY 350.1.13.10 [place] [facility] 4.2.7.2.686 [phone] 009 2016-10-13 2016-10-13 Orders Doctor MONAE Raygoza2.840.114 [id number] Univers 00:00:00 00:00:00 Only Unassigned, TOY 350.1.13.10 it[place] [facility] [place] [facility] 4.2.7.2.686 Bryce as [phone] [address] Results Test Description Test Time Test Comments Results Result Comments Source Ferritin 2022-01-08 09:52:00 Test Item Value Reference Range Interpretation Comme nts Ferritin, Serum (test code = 2276-4) 16 ng/mL 24-380 L Lab Interpretation (test code = 27332-8) Abnormal [facility] with platelet count + automated [id number] 09:52:00 Test Item Value Reference Range Interpretation Comments WBC (test code = 7.2 See_Comment [Automated message] ) The system [employer] generated this result transmit lisa reference range : 3.8 - 10.8 Thousand /uL. The reference r mela was not used to interpret this result as normal/abnormal . RBC (test code = 789-8) 4.03 See_Comment L [Au tomated message] The system [employer] generated this result transmit lisa reference range [...] L [Aut omated message] ) The system [employer] generated this result transmit lisa reference range : 140 - 400 Thousand/ uL. The reference r mela was not used to interpret this result as normal/abnormal . MPV (test code = 7.5-12.5 Due to plat elet or 2012331) RBC variability in size or shapeth e result cannot b e reported accura tely. # Neutros (test code = 4284 See_Comment [Aut omated message] 20191222) The system [employer] generated this result transmit lisa reference range : 1,500 - 7,800 cells/uL. The reference range was not used to interpret this result as normal/abnormal . # Lymphs (test code = 1879 See_Comment [Auto mated message] 731-0) The system [employer] generated this result transmit lisa reference range : 850 - 3,900 cells/u L. The reference r mela was not used to interpret this result as normal/abnormal . # Monos (test code = 871 See_Comment [Autom ated message] ) The system [employer] generated this result transmit lisa reference range : 200 - 950 cells/uL. The reference range was not used to interpret this result as normal/abnormal . # Eos (test code = 108 See_Comment [Automat ed message] 711-2) The system [employer] generated this result transmit lisa reference range : 15 - 500 cells/uL. The reference range was not used to interpret this result as normal/abnormal . # Baso (test code = 58 See_Comment [Automa lisa message] 704-7) The system [employer] generated this result transmit lisa reference range [...] 20191218) Lab Interpretation (test Abnormal code = 63581-0) [facility], % sat. (without ferritin)2022-01-08 09:52:00 Test Item Value Reference Range Interpretation Comments Iron (test code = 21 See_Comment L [Automate d message] ) The system [employer] generated this result transmitted ref erence range: 50 - 180 mcg/dL. The ref erence range was not u sed to interpret this result as normal/abnor mal. Iron Bind.Cap.(TIBC) 309 See_Comment [Autom ated message] (test code = 20101019) The sy stem which generated this result transmitted ref erence range: 250 - 42 5 mcg/dL (calc). The reference range was not used to int erpret this result as normal/abnormal . Iron % Saturation (test 7 See_Comment L [Au tomated message] code = 8888261) The system [employer] [facility] generated this result transmitted ref erence range: 20 - 48 % (calc). The ref erence range was not u sed to interpret this result as normal/abnor mal. Lab Interpretation (test Abnormal code = 99335-0) [facility] Jose[facility] [id number] 09:52:00 Test Item Value Reference Range Interpretation Comments Platelet Estimate (test code = DECREASED ADEQUATE A 37958-6) Lab Interpretation (test code = Abnormal 33743-0) [facility]2022-[facility]-13 09:52:00 Test Item Value Reference Range Interpretation Comments Ferritin, Serum (test code = 2276-4) 16 ng/mL 24-380 L Lab Interpretation (test code = Abnormal 01150-4) [facility] count + automated [id number] 09:52:00 Test Item Value Reference Range Interpretation Comments WBC (test code = 7.2 See_Comment [Automated message] ) The system [employer] generated this result transmit lisa reference range : 3.8 - 10.8 Thousand /uL. The reference r mela was not used to interpret this result as normal/abnormal . RBC (test code = 789-8) 4.03 See_Comment L [Au tomated message] The system [employer] generated this result transmit lisa reference range [...] L [Aut omated message] ) The system [employer] generated this result transmit lisa reference range : 140 - 400 Thousand/ uL. The reference r mela was not used to interpret this result as normal/abnormal . MPV (test code = 7.5-12.5 Due to plat elet or 8581033) RBC variability in size or shapeth e result cannot b e reported accura tely. # Neutros (test code = 4284 See_Comment [Aut omated message] 20191222) The system [employer] generated this result transmit lisa reference range : 1,500 - 7,800 cells/uL. The reference range was not used to interpret this result as normal/abnormal . # Lymphs (test code = 1879 See_Comment [Auto mated message] 731-0) The system [employer] generated this result transmit lisa reference range : 850 - 3,900 cells/u L. The reference r mela was not used to interpret this result as normal/abnormal . # Monos (test code = 871 See_Comment [Autom ated message] ) The system [employer] generated this result transmit lisa reference range : 200 - 950 cells/uL. The reference range was not used to interpret this result as normal/abnormal . # Eos (test code = 108 See_Comment [Automat ed message] 711-2) The system [employer] generated this result transmit lisa reference range : 15 - 500 cells/uL. The reference range was not used to interpret this result as normal/abnormal . # Baso (test code = 58 See_Comment [Automa lisa message] 704-7) The system [employer] generated this result transmit lisa reference range [...] 20191218) Lab Interpretation (test Abnormal code = 73748-8) [facility], TIBC, % sat. (without ferritin)2022-01-08 09:52:00 Test Item Value Reference Range Interpretation Comments Iron (test code = 21 See_Comment L [Automate d message] 0075133) The system [employer] generated this result transmitted ref erence range: 50 - 180 mcg/dL. The ref erence range was not u sed to interpret this result as normal/abnor mal. Iron Bind.Cap.(TIBC) 309 See_Comment [Autom ated message] (test code = 3039247) The sy stem which generated this result transmitted ref erence range: 250 - 42 5 mcg/dL (calc). The reference range was not used to int erpret this result as normal/abnormal . Iron % Saturation (test 7 See_Comment L [Au tomated message] code = 1628517) The system [facility] [facility] generated this result transmitted ref erence range: 20 - 48 % (calc). The ref erence range was not u sed to interpret this result as normal/abnor mal. Lab Interpretation (test Abnormal code = 29505-4) [facility] Jose[facility]ATE[facility] [id number] 09:52:00 Test Item Value Reference Range Interpretation Comments Platelet Estimate (test code = DECREASED ADEQUATE A 17560-8) Lab Interpretation (test code = Abnormal 82286-2) [facility], BRAIN, [id number] 15:47:00REFERRING : ANIL SALVADOR Unlisted Reason for Exam - Click Yes and Enter Reason Below- >Yes Unlisted Reason for Exam->1.3 cm midbrain/cisternal lesion [facility] : 1955 Sex: MFINAL [...] Efrain Navarrete MDReport Verified Date/Time: 01/04/2022 15:47:33 [facility] WITH [id number] 22:20:29 Test Item Value Reference Range Interpretation [...] RDW-SD (test code = 49.4 fL 38.5-51.6 14950-3) RDW-CV (test code = 20.9 % 12.1-15.4 H 788-0) PLT (test code = See_Comment L [Automated 777-3) message] The system which generated this result transmitted reference range : 150 - 328 10*3/?L. The reference range was not used to interpret this result as normal/abnormal . MPV (test code = Not Measure d 37117-9) NRBC/100 WBC (test See_Comment [Automat ed code = 4467810872) message] The system which generated this result transmitted reference range : 0.0 - 10.0 /100 WBCs. The reference range was not used to interpret this result as normal/abnormal . NRBC x10^3 (test code See_Comment [Auto mated = 4609525289) message] The system which generated this result transmitted reference range : 10*3/?L. The reference range was not used to interpret this result as normal/abnormal . GRAN MAT (NEUT) % 85.5 % (test code = 770-8) IMM GRAN % (test code 0.50 % = 8620248588) LYMPH % (test code = 7.6 % 736-9) MONO % (test code = 5.8 % 5905-5) EOS % (test code = 0.1 % 713-8) BASO % (test code = 0.5 % 706-2) GRAN MAT x10^3(ANC) 9.28 10*3/uL 1.99-6.95 H (test code = 2648795177) IMM GRAN x10^3 (test 0.05 10*3/uL 0-0.06 code = 3730277509) LYMPH x10^3 (test 0.82 10*3/uL 1.09-3.23 L code = 731-0) MONO x10^3 (test code 0.63 10*3/uL 0.36-1.02 = 742-7) EOS x10^3 (test code 0.06-0.53 L = 711-2) BASO x10^3 (test code 0.05 10*3/uL 0.01-0.09 = 704-7) PLT ESTIMATE (test Decreased Normal A code = 9317-9) MADALYN (test code = MADALYN) No Platelet clumps seen Lab Interpretation Abnormal (test code = 00937-3) [facility] METABOLIC PANEL (NA, K, CL, CO2, GLUCOSE, BUN, CREATININE, CA)2021-12-26 21:51:09 Test Item Value Reference Range Interpretation Comments NA (test code = 134 mmol/L 135-145 L 8694506208) K (test code = 3.7 mmol/L 3.5-5 5673624584) CL (test code = 105 mmol/L 98-108 4445726015) CO2 TOTAL (test code = 21 mmol/L 23-31 L 8915835288) AGAP (test code = 2-16 8327009514) BUN (test code = 5 mg/dL 7-23 L 2436635748) GLUCOSE (test code = 257 mg/dL 70-110 H 8627018032) CREATININE (test code = 0.61 mg/dL 0.6-1.25 2825330686) CALCIUM (test code = 7.9 mg/dL 8.6-10.6 L 6370491715) eGFR (test code = mL/min/1.73m2 6468794384) MADALYN (test code = MADALYN) Association of [...] tests). Lab Interpretation Abnormal (test code = 95708-7) [facility] MET[facility]OLIC [id number] 13:28:32 Test Item Value Reference Range Interpretation [...] G3b Moderately to s everely 30-44 G4 Severl y decreased 15-29 G5 Kidney failure <15Reported eGF R is based on the CKD-EPI 2020 equation that d oes not use a race coefficientEsti mated GFR is not as accur ate as Creatinine Bonita fara in predicting glom erular filtration rate . Estimated GFR is not appl icable for dialysis patien ts Psychology Lecturer ID - BSSpecimen slightly ictericHEPATIC FUNCTION [id number] 13:28:32 Test Item Value Reference Range Interpretation [...] (test code = 21 U/L 6-55 347) Psychology Lecturer ID - BSSpecimen slightly ictericPROTHROMBIN TIME/[id number] 13:21:12 Test Item Value Reference Range Interpretation Comments PROTIME (BEAKER) 17.5 seconds 11.9-14.2 H (test code = 759) INR (BEAKER) (test 1.46 See_Comment [Automat ed message] code = 370) The system [employer] generated this result transmitted ref erence range: <=5.90. The reference range was not used to int erpret this result as normal/abnormal . RECOMMENDED COUMADIN/WARFARIN INR THERAPY RANGESSTANDARD DOSE: 2.0 - 3.0 Includes: PROPHYLAXIS for venous thrombosis, systemic embolization; TREATMENT for venous thrombosis and/or pulmonary embolus.HIGH RISK: Target INR is 2.5-3.5 for patients with mechanical heart valves.CBC W/PLT COUNT & AUTO [id number] 13:14:24 Test Item Value Reference Range Interpretation [...] (BEAKER) (test code = 2801) MR, ABDOMEN, [id number] 18:24:00REFERRING : ANIL SALVADOR Include Abdominal Vessels[facility]ONA : 1955 Sex: MFINAL REPORT TECHNIQUE: MRI of the abdomen WITHOUT and WITH intravenous contrast. INDICATION: Liver disease, chronic, history of HCC, monitoring. COMPARISON: MRIs dating back to 09/01/2020. FINDINGS: LOWER THORAX: Unremarkable. LIVER: Nodular, cirrhotic liver. Focal liver observations as foll ow:*Embolization cavity in segment VIII continues to decrease in size and has no residual tumor. This is best seen on delayed phase image 89. LR-TR nonviable*Atrium and cavity in segment II continued to decrease in size and has no residual nodular enhancement. This is best seen on axial arterial phaseimage 80. LR-TR nonviable*The previously seen arterially hyperenhancing observation in segment II isnot as conspicuous on today's examination.*An arterially hyperenhancing observation in segment measures 1.1 cm on axial arterial phase image 77, unchanged. No washout or pseudocapsule formation. LI-RADS 3*An arterially hyperenhancing observation in segment II on axial arterial phase image 81 measures 0.8 cm, previously 0.7 cm. LI-RADS 3 BILIARY: Gallbladder is unremarkable. No biliary ductal dilatation or filling defect.SPLEEN: 18 cm splenomegaly.PANCREAS: No focal masses or ductal dilatation. ADRENALS: No adrenal nodules.KIDNEYS/URETERS: No hydronephrosis or solid mass lesions. A lateral pole simple renal cyst measures 1.3 cm. No follow-up imaging is recommended. PERITONEUM/RETROPERITONEUM: Traceascites.LYMPH NODES: No lymphadenopathy.VESSELS: There are large esophageal and paraesophageal varices. The main portal vein is patent and measures 1.2 cm in diameter. There is no history of left hepatic artery from the left gastric artery. GI TRACT: No distention or wall thickening. Diverticula of the second portion of the duodenum. BONES AND SOFT TISSUES: Unremarkable. 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 LR-TR nonviable 2.The previously seen arterially hyperenhancing observation in segment II which was LI-RADS 5 is no longer visualized. 3.Twoadditional Li-rads 3 observations in the liver are essentially unchanged. 4.Cirrhosis with sequelae of portal hypertension including splenomegaly and large esophageal varices. Signed: Tawanda Alvarez MDReport Verified Date/Time: 12/08/2021 18:24:59 CT, CHEST, WITHOUT [id number] 12:41:00REFERRING MD: ANIL SALVADOR Mets work up [facility] : 1955 Sex: MFINAL [...] right lower lobe nodule. Signed: Ankit Gaines MDReport Verified Date/Time: 12/08/2021 12:41:29 ALPHA FETOPROTEIN (AFP), TUMOR MARKER 2021-12-06 17:08:44 Test Item Value Reference Range Interpretation Comments ALPHA-FETOPROTEIN (BEAKER) (test 2.3 ng/mL <10.0 code = 1094) Psychology Lecturer ID - DBBASIC METABOLIC [id number] 16:53:56 Test Item Value Reference Range Interpretation [...] S NOT APPLICABLE FOR DIALYSIS PATIEN TS. Psychology Lecturer ID - BSSpecimen slightly ictericHEPATIC FUNCTION [id number] 16:53:56 Test Item Value Reference Range Interpretation [...] (test code = 22 U/L 6-55 347) Psychology Lecturer ID - BSSpecimen slightly ictericPROTHROMBIN TIME/[id number] 16:43:33 Test Item Value Reference Range Interpretation Comments PROTIME (BEAKER) 17.0 seconds 11.9-14.2 H (test code = 759) INR (BEAKER) (test 1.40 See_Comment [Automat ed message] code = 370) The system [employer] generated this result transmitted ref erence range: <=5.90. The reference range was not used to int erpret this result as normal/abnormal . RECOMMENDED COUMADIN/WARFARIN INR THERAPY RANGESSTANDARD DOSE: 2.0 - 3.0 Includes: PROPHYLAXIS for venous thrombosis, systemic embolization; TREATMENT for venous thrombosis and/or pulmonary embolus.HIGH RISK: Target INR is 2.5-3.5 for patients with mechanical heart valves.CBC W/PLT COUNT & AUTO [id number] 16:42:35 Test Item Value Reference Range Interpretation [...] = 2801) MR, MRI, METASTATIC SURVEY/BONE MARROW [id number] 13:54:00REFERRING : ANIL SALVADOR Mets work up Reason for Exam:->hcc, cirrhosis [facility] 1955 Sex: MFINAL REPORT MRI metastatic skeletal survey History:HCC, cirrhosis Comparison: None Technique: Multiplanar multisequence MR images of the skeleton were obtained from the level of the skull to the level of the distal femurs. T1 weighted and turbo STIR sequences were utilized. Findings: There is red marrow reconversion of the axial and proximal appendicular skeleton. Cervical spine/skull: No MR evidence of osseous metastatic disease. In the midbrain/fourth ventricle region, there is a 1.3 cm T1 hyperintense, T2 hypointense nodule. A mucous retention cyst is noted in the left maxillary sinu s. Thoracic spine/thorax: No MR evidence of osseous metastatic disease. Lumbar spine/abdomen: No MR evidence of osseous metastatic disease. Cirrhosis and splenomegaly. Small amount of ascites. Pelvis: No MR evidence of osseous metastatic disease. Bilateral femurs: No MR evidence of osseous metastatic d isease. Bilateral legs: No MR evidence of osseous metastases. Impression: 1. No MR evidence of osseous metastatic disease. 2. There is a 1.3 cm T1 hyperintense and T2 hypointense midbrain/cisternal nodule, which may represent a lipid- containing or hemorrhagic lesion. Suggest correlation with brain CT or MRI for further evaluation. Signed: Milton Royaleport Verified Date/Time: 12/06/2021 13:54:32 Reading Location: [facility] B1 C013X [facility] Consult Reading Room HEREDITARY [id number] 10:46:31 Test Item Value Reference Interpretation Comments Range DNA Mutation See Below RESULT: NEGATIV E Analysis Interpretation: DNA testing (test code = indicates that this individual 8071701) isnegative for the C282Y and H63D pathogenic [...] and sub mitted clinical information rev iewed Karey Phillips MD, MHA, FACMG, CGMBS. DETAILED ASSAY [...] hogenic variants in the HFEgene, C282Y (NM 543080.2: c .845G>A, p.Shh474Atd) an d H63D (YU590736.2: c. 187C>G, p.Suv45Yqu), th at are commonly associated with HH. [...] ca re providers, please contact your local [facility] 'genetic counselor or marlene myers [phone] ( ) forassistance with the interp retation of these results. This test was developed and i ts analytical performancechar acteristics have been deter mined by [employer] [facility] morales. It has not been cleare d or approved byA. This ass ay has been validated pursu ant to the CLIA regulationsand is used for clinical purpos es. For more information, pl ease refer tohttp://educat ion.[employer].com/faq/h emochromatosis. (This linkis be ing provided for information al/educational purposes only.) Reviewed and signed by Liane Phillips MD, MHA , FAC, CGNUBIAS, Signed on 09/09 at 10:42 MADALYN (test Performing Lab code = MADALYN) EZ [employer] [facility] [address] [place] [address] Aung Salazar MD, PhD, SANDRA [facility] JoseHEREDITARY [id number] 10:46:31 Test Item Value Reference Interpretation Comments Range DNA Mutation See Below RESULT: NEGATIV E Analysis Interpretation: DNA testing (test code = indicates that this individual 4120403) isnegative for the C282Y and H63D pathogenic [...] information rev iewed byLam Phillips MD, MHA, FAC, CGMBS. DETAILED ASSAY INFORMATION: He reditary hemochromatosis [...] hogenic variants in the HFEgene, C282Y (NM 469983.2: c .845G>A, p.Cvz978Dtt) an d H63D (OS933678.2: c. 187C>G, p.Gmh84Elc), th at are commonly associated with HH. [...] ca re providers, please contact your local [facility] 'genetic counselor or [facility] [phone] ( ) forassistance with the interp retation of these results. This test was developed and i ts analytical performancechar acteristics have been deter mined by [employer] [facility] Miguelangel woods. It has not been cleare d or approved by[facility]. This ass ay has been validated pursu ant to the CLIA regulationsand is used for clinical purpos es. For more information, pl ease refer tohttp://educat ion.[employer].com/faq/h emochromatosis. (This linkis be ing provided for information al/educational purposes only.) Reviewed and signed by Liane Phillips MD, MHA , FACMG, CGMBS, Signed on 09/09 at 10:42 MADALYN (test Performing Lab code = MADALYN) [facility] [address] [place] [address] Aung Salazar MD, PhD, [facility] JoseMR, ABDOMEN, [id number] 14:51:00REFERRING MD: ANIL SALVADOR Include Abdominal Vessels [facility] : 1955 Sex: MFINAL [...] hernia, slightly increased in size Signed: Stefano Mckeon [facility] Verified Date/Time: 09/01/2021 14:51:17 CT, CHEST, WITHOUT [id number] 16:16:00REFERRING MD: ANIL SALVADOR Mets work up [facility] : 1955 Sex: MFINAL [...] lower lobe groundglass nodule. Signed: Ankit Gaines MDRepshriners hospitals for children Verified Date/Time: 08/31/2021 16:16:00 Reading Location: [facility] ALPHA FETOPROTEIN (AFP), TUMOR MARKER 2021-08-26 11:47:11 Test Item Value Reference Range Interpretation Comments ALPHA-FETOPROTEIN (BEAKER) (test code < ng/mL <10.0 = 1094) Psychology Lecturer ID - BSBASI METABOLIC [id number] 11:20:03 Test Item Value Reference Range Interpretation [...] S NOT APPLICABLE FOR DIALYSIS PATIEN TS. Psychology Lecturer ID - KRISHNA Isaac slightly ictericHEPATIC FUNCTION [id number] 11:20:03 Test Item Value Reference Range Interpretation [...] (test code = 26 U/L 6-55 347) Psychology Lecturer ID - KRISHNA Isaac slightly ictericPROTHROMBIN TIME/[id number] 10:58:57 Test Item Value Reference Range Interpretation Comments PROTIME (BEAKER) 17.2 seconds 11.9-14.2 H (test code = 759) INR (BEAKER) (test 1.42 See_Comment [Automat ed message] code = 370) The system [employer] generated this result transmitted ref erence range: <=5.90. The reference range was not used to int erpret this result as normal/abnormal . RECOMMENDED COUMADIN/WARFARIN INR THERAPY RANGESSTANDARD DOSE: 2.0 - 3.0 Includes: PROPHYLAXIS for venous thrombosis, systemic embolization; TREATMENT for venous thrombosis and/or pulmonary embolus.HIGH RISK: Target INR is 2.5-3.5 for patients with mechanical heart valves.CBC W/PLT COUNT & AUTO [id number] 10:56:22 Test Item Value Reference Range Interpretation [...] (BEAKER) (test code = 2801) Comprehensive metabolic [id number] 16:54:00 Test Item Value Reference Range Interpretation Comments Glucose (test code = 157 mg/dL 65-99 H Fastin g reference 0967969) interval For so meone without known diabetes, a glucosevalue >1 25 mg/dL indicates that they may havedi abetes and this should be confirmed with afollow-up test . BUN (test code = 7 mg/dL 7-25 20100929) Creatinine (test code 0.63 mg/dL 0.70-1.25 L [...] See_Comment [Automate d message] (test code = ) The sy [...] mal. Sodium (test code = 137 mmol/L 135-861 1886847) Potassium, Serum 3.8 mmol/L 3.5-5.3 (test code = 20101014) Chloride (test code = 107 mmol/L 98-220 8631257) Carbon Dioxide, Total 22 mmol/L 20-32 (test code = ) Calcium, Serum (test 8.1 mg/dL 8.6-10.3 L code = 20100926) Protein, Total, Serum 6.0 g/dL 6.1-8.1 L (test code = 20101003) Albumin (test code = 3.0 g/dL 3.6-5.1 L ) GLOBULIN ([facility]) 3.0 See_Comment [Automated message] (test code = 5173265) The sy stem which generated this result [...] 1.4 mg/dL 0.2-1.2 H (test code = 7705699) Alkaline Phosphatase, 103 U/L 35-144 S (test code = 6768-6) AST (SGOT) (test code 24 U/L 10-35 = 20101009) ALT (SGPT) (test code 15 U/L 9-46 = ) Lab Interpretation Abnormal (test code = 65077-8) [facility] JoseComprehensive metabolic [id number] 16:54:00 Test Item Value Reference Range Interpretation Comments Glucose (test code = 157 mg/dL 65-99 H Fastin g reference 8353734) interval For so meone without known diabetes, a glucosevalue >1 25 mg/dL indicates that they may havedi abetes and this should be confirmed with afollow-up test . BUN (test code = 7 mg/dL -20100929) Creatinine (test code 0.63 mg/dL 0.70-1.25 L For pa tients >49 years = 20130722) of age, the ref erence limitfor Creati nine is approximately 1 3% higher for peopleidentifie d as -Christelle n. eGFR If NonAfricn Am 104 See_Comment [Autom ated message] (test code = 5385746) The sy stem which generated this result transmitted ref erence range: > OR = 6 0 mL/min/1.73m2. The reference range was not used to int erpret this result as normal/abnormal . eGFR If Africn Am 121 See_Comment [Automate d message] (test code = 9108562) The sy stem which generated this result [...] mal. Sodium (test code = 137 mmol/L 135-242 7162485) Potassium, Serum 3.8 mmol/L 3.5-5.3 (test code = 20101014) Chloride (test code = 107 mmol/L 98-971 6237365) Carbon Dioxide, Total 22 mmol/L 20-32 (test code = ) Calcium, Serum (test 8.1 mg/dL 8.6-10.3 L code = 20100926) Protein, Total, Serum 6.0 g/dL 6.1-8.1 L (test code = 20101003) Albumin (test code = 3.0 g/dL 3.6-5.1 L ) GLOBULIN (QUEST) 3.0 See_Comment [Automated message] (test code = 4720143) The sy stem which generated this result [...] 1.4 mg/dL 0.2-1.2 H (test code = 20101005) Alkaline Phosphatase, 103 U/L 35-144 S (test code = 6768-6) AST (SGOT) (test code 24 U/L 10-35 = 20101009) ALT (SGPT) (test code 15 U/L 9-46 = ) Lab Interpretation Abnormal (test code = 99850-6) [facility] JoseMR, ABDOMEN, [id number] 14:52:00REFERRING : ANIL SALVADOR Include Abdominal Vessels [facility]ALEN [facility]ARDONA : 1955 Sex: MFINAL [...] Mckeon Verified Date/Time: 05/03/2021 14:52:21 Reading Location: [address] Transitional Reading Room CT, CHEST, WITHOUT CONTRAST 2021-04-29 16:45:00REFERRING MD: ANIL SALVADOR Mets work up [facility] : 1955 Sex: MFINAL REPORT CT of the Chest dated 04/29/2021 COMPARISON: January 21, 2021 CLINICAL INFORMATION: Unlisted Reason for Exam Comment: Axial images of the chest were obtained from thoracic inletto the upper abdomen without intravenous contrast. This exam was performed according to our departmental dose- optimization program, which includes automated exposure control, adjustment of the mA and/or kV according to patient size and/or use of interactive reconstruction technique. Heart is normal insize. Vascular calcification is seen in the thoracic [...] lower lobe groundglass nodule. Signed: Brenda De Diosort Verified Date/Time: 04/29/2021 16:45:28 Reading Location: [address] Body Reading Room BONE AND/OR JOINT IMAGING, WHOLE [id number] 14:33:00REFERRING : ANIL SALVADOR METS WORK UP [facility] : 1955 Sex: MFINAL REPORT PROCEDURE: BONE SCAN, WHOLE BODY CPT CODE: 57439 INDICATION: HCC PROTOCOL:21.8 mCi of Tc-99m MDP was injected intravenously. Whole body and selected spot images were obtainedapproximately 3 hours later. FINDINGS: Tracer activity increased [...] Owen Verified Date/Time: 04/29/2021 14:33:51 Reading Location: [address] Reading Room Basi Metabolic [id number] 12:07:01 Test Item Value Reference Range Interpretation Comments Sodium (test code = 134 meq/L 136-145 L 2951-2) Potassium (test code 4.5 meq/L 3.5-5.1 = 2823-3) Chloride (test code = 100 meq/L 98-107 2075-0) CO2 (test code = 22 meq/L 22-29 8-9) BUN (test code = 11 mg/dL 7- 3094-0) Creatinine (test code 0.82 mg/dL 0.57-1.25 = 2160-0) Glucose (test code = 124 mg/dL 70-105 H 2345-7) Calcium (test code = 8.9 mg/dL 8.4-10.2 88174-0) EGFR (test code = 95 mL/min/1.73 [place] [address]-4) NOT ACCURATE CREATININE CLEARANCE IN PREDICTING GLOMERULAR FILTRATION RATE . ESTIMATED GFR I S NOT APPLICABLE FOR DIALYSIS PATIENTS. MADALYN (test code = MADALYN) Psychology Lecturer ID - ELOY MSpecimen slightly icteric Lab Interpretation Abnormal (test code = 75851-0) [facility] JoseHepatic function [id number] 12:07:01 Test Item Value Reference Range Interpretation Comments Protein, Total (test 7.3 See_Comment [Autom ated code = 2885-2) message] The system which generated this result transmitted reference range : 6.0 - 8.3 gm/dL . The reference range was not used to interpr et this result as normal/abnormal . Albumin (test code = 3.3 g/dL 3.5-5.0 L 95277-2) Total Bilirubin (test 1.8 mg/dL 0.2-1.2 H code = 1974-2) Bilirubin, Direct 0.8 mg/dL 0.1-0.5 H (test code = 1967-7) Alkaline Phosphatase 148 U/L 40-150 (test code = 6768-6) AST (test code = 31 U/L 5-34 1920-8) ALT (test code = 23 U/L 6-55 1742-6) MADALYN (test code = MADALYN) Psychology Lecturer ID - ELOY MSpecimen slightly icteric Lab Interpretation Abnormal (test code = 23724-1) [facility] JoseBASIC METABOLIC [id number] 12:07:01 Test Item Value Reference Range Interpretation [...] S NOT APPLICABLE FOR DIALYSIS PATIEN TS. Psychology Lecturer ID Andrea LYONS MSpecimen slightly ictericHEPATIC FUNCTION [id number] 12:07:01 Test Item Value Reference Range Interpretation [...] (test code = 23 U/L 6-55 347) Psychology Lecturer LEOPOLDO Collierimekaz slightly ictericAlpha fetoprotein (AFP), tumor [id number] 11:59:44 Test Item Value Reference Range Interpretation Comments Alpha-Fetoprotein (test 2.5 ng/mL <10.0 code = 1834-1) MADALYN (test code = MADALYN) Psychology Lecturer ID - ELOY M Lab Interpretation (test Normal code = 17873-1) [facility] JoseALPHA FETOPROTEIN (AFP), TUMOR [id number] 11:59:44 Test Item Value Reference Range Interpretation Comments ALPHA-FETOPROTEIN (BEAKER) (test 2.5 ng/mL <10.0 code = 1094) Psychology Lecturer LEOPOLDO LYONS MProthrombin time/[id number] 11:32:54 Test Item Value Reference Interpretation Comments [...] valves. Lab Interpretation Abnormal (test code = 11240-2) [facility] JosePROTHROMBIN TIME/[id number] 11:32:54 Test Item Value Reference Range Interpretation Comments PROTIME (BEAKER) 15.7 seconds 11.9-14.2 H (test code = 759) INR (BEAKER) (test 1.27 See_Comment [Automat ed message] code = 370) The system [employer] generated this result transmitted ref erence range: <=5.90. The reference range was not used to int erpret this result as normal/abnormal . RECOMMENDED COUMADIN/WARFARIN INR THERAPY RANGESSTANDARD DOSE: 2.0 - 3.0 Includes: PROPHYLAXIS for venous thrombosis, systemic embolization; TREATMENT for venous thrombosis and/or pulmonary embolus.HIGH RISK: Target INR is 2.5-3.5 for patients with mechanical heart valves.CBC with platelet count + automated [id number] 11:25:26 Test Item Value Reference Range Interpretation Comments WBC (test code = 6690-2) 6.3 See_Comment [A utomated message] The system [employer] generated this result transmitted ref erence range: 3.5 - 10 .5 K/L. The refe rence range was not u sed to interpret this result as normal/abnor mal. RBC (test code = 789-8) 4.40 See_Comment L [Au tomated message] The system [employer] generated this result transmitted ref erence range: 4.63 - 6 .08 M/L. The refe rence range was not u sed to interpret this result as normal/abnor mal. MCHC (test code = 786-4) 29.8 See_Comment L [A utomated message] The system [employer] generated this result transmitted ref erence range: [...] L [Aut omated message] 777-3) The system [employer] generated this result transmitted ref erence range: 150 - 45 0 K/CU MM. The referen ce range was not u sed to interpret this result as normal/abnor mal. MPV (test code = [place] [address]-1) to abnormal Pollo telet population distribution. nRBC (test code = 413) 0 See_Comment [Aut omated message] The system [employer] generated this result transmitted ref erence range: [...] See_Comment [Aut omated message] 670) The system [employer] generated this result transmitted ref erence range: 1.78 - 5 .38 K/L. The refe rence range was not u sed to interpret this result as normal/abnor mal. # Lymphs (test code = 1.92 See_Comment [Auto mated message] 414) The system [employer] generated this result transmitted ref erence range: 1.32 - 3 .57 K/L. The refe rence range was not u sed to interpret this result as normal/abnor mal. # Monos (test code = 0.60 See_Comment [Autom ated message] 415) The system [employer] generated this result transmitted ref erence range: 0.30 - 0 .82 K/L. The refe rence range was not u sed to interpret this result as normal/abnor mal. # Eos (test code = 416) 0.11 See_Comment [Au tomated message] The system [employer] generated this result transmitted ref erence range: 0.04 - 0 .54 K/L. The refe rence range was not u sed to interpret this result as normal/abnor mal. # Baso (test code = 417) 0.05 See_Comment [A utomated message] The system [employer] generated this result transmitted ref erence range: 0.01 - 0 .08 K/L. The refe rence range was not u sed to interpret this result as normal/abnor mal. Immature 0 % 0-1 Granulocytes-Relative (test code = 2801) Lab Interpretation (test Abnormal code = 32892-6) [facility] W/PLT COUNT & AUTO [id number] 11:25:26 Test Item Value Reference Range Interpretation [...] PERCENT (BEAKER) (test code = 2801) TROPONIN [id number] 19:45:34 Test Item Value Reference Interpretation Comments Range TROPONIN I (test 0.004 ng/mL See_Comment [Automated code = [id number]) message] The system which generated this result [...] biotin. Lab Interpretation Normal (test code = 12422-6) [facility] WITH [id number] 19:42:16 Test Item Value Reference Range Interpretation [...] (test code = 55.0 fL 38.5-51.6 H 52715-7) RDW-CV (test code = 21.7 % 12.1-15.4 H 788-0) PLT (test code = See_Comment L [Automated 777-3) message] The sy stem which generated this result transmitted reference range : 150 - 328 10*3/ ?L. The reference r mela was not used to interpret this result as normal/abnormal . MPV (test code = Not Measure d 41302-4) IPF % (test code = 3.2 % 1.2-10.7 Platelet count [id number]) measured by fluorescence method. NRBC/100 WBC (test See_Comment [Automat ed code = [id number]) message] The system which generated this result transmitted reference range : 0.0 - 10.0 /100 WBCs. The refer ence range was not u sed to interpret th is result as normal/abnormal . NRBC x10^3 (test code <0.01 See_Comment [Auto mated = 7283354229) message] The s ystem which generated this result transmitted reference range : 10*3/?L. The reference range was not used to interpret this result as normal/abnormal . GRAN MAT (NEUT) % 42.9 % (test code = 770-8) IMM GRAN % (test code 0.60 % = 3595635717) LYMPH % (test code = 38.0 % 736-9) MONO % (test code = 14.2 % 5905-5) EOS % (test code = 3.3 % 713-8) BASO % (test code = 1.0 % 706-2) GRAN MAT x10^3(ANC) 2.24 10*3/uL 1.99-6.95 (test code = 6248307205) IMM GRAN x10^3 (test 0.03 10*3/uL 0.00-0.06 code = 5509881799) LYMPH x10^3 (test code 1.98 10*3/uL 1.09-3.23 = 731-0) MONO x10^3 (test code 0.74 10*3/uL 0.36-1.02 = 742-7) EOS x10^3 (test code = 0.17 10*3/uL 0.06-0.53 711-2) BASO x10^3 (test code 0.05 10*3/uL 0.01-0.09 = 704-7) Lab Interpretation Abnormal (test code = 68575-8) [facility] ([id number])2021-04-01 19:34:12 Test Item Value Reference Range Interpretation Comments NA (test code = 135 mmol/L 135-145 5798440500) K (test code = 3.8 mmol/L 3.5-5.0 8657309631) CL (test code = 104 mmol/L 98-108 3748659155) CO2 TOTAL (test code = 23 mmol/L 23-31 3799415063) AGAP (test code = 2-16 4875534606) BUN (test code = 9 mg/dL 7-23 1445596539) GLUCOSE (test code = 195 mg/dL 70-110 H 1016647902) CREATININE (test code = 0.65 mg/dL 0.60-1.25 5622542335) TOTAL BILI (test code = 1.3 mg/dL 0.1-1.1 H 3858183826) CALCIUM (test code = 8.2 mg/dL 8.6-10.6 L 4529435885) T PROTEIN (test code = 6.6 g/dL 6.3-8.2 3296081023) ALBUMIN (test code = 2.9 g/dL 3.5-5.0 L 6628620084) ALK PHOS (test code = 143 U/L 34-122 H 0619189827) ALTv (test code = 28 U/L 5-50 1742-6) AST(SGOT) (test code = 47 U/L 13-40 H 4187381880) eGFR (test code = mL/min/1.73m2 7447569532) MADALYN (test code = MADALYN) Association of [...] tests). Lab Interpretation Abnormal (test code = 21029-1) [facility], [id number] 19:32:52 Test Item Value Reference Range Interpretation Comments AMMONIA (test code = 1469610952) 48 umol/L 9-33 H Lab Interpretation (test code = Abnormal 41847-8) [facility] AllenPROTHROMBIN TIME / [id number] 19:01:25 Test Item Value Reference Range Interpretation Comments PROTIME PATIENT (test See_Comment H [Auto mated message] code = 5964-2) The system [employer] generated this result transmitted ref erence range: 12.0 - 1 4.7 Seconds. The reference range was not used to int erpret this result as normal/abnormal . INR (test code = 6301-6) Nor mal INR <1.1; Warfarin Therap eutic range 2.0 to 3. 0 or 2.5 to 3.5, dep ending upon the indica tions. Lab Interpretation (test Abnormal code = 65033-7) [facility], EMBOLIZATION, EXTENSIVE - ARTERIAL 2021-03-12 14:48:00REFERRING MD: ANIL SALVADOR For TACEReason for Exam:- >hcc, hcvP[facility] : 1955 Sex: MFINAL REPORT Mesenteric angiogram and chemoembolization, 03/12/2021. History: Hepatic lesions. Comparison: MRI 01/21/2021, prior angiogram 11/26/2020. Modality: Fluoroscopy. Sedation: 0.5 mgVersed and 25 mcg Fentanyl IV was used for moderate sedation monitored under my direction. The patient's vital signs were monitored throughout the procedure and recorded to the patient's medical recordby the nurse. Total intra-service time of sedation was 60 minutes. Anesthesia: Two percent Lidocainewithout epinephrine. Approach: Right common femoral artery. Estimated blood loss: < 5 cc. Specimen: None. glue jointer operator: Carolyn. Java Integration Developer: Dilip. Fluoroscopy Time: 14.1 min. Dose (Ka,r): 2189 mGy. Technique: Informed written consent was obtained. Discussion of risks, benefits, and alternativeswere made with the patient. The patient expressed understanding and agreed to proceed. All elements maximal sterile barrier technique was utilized for this procedure, including utilization of sterile sc rub solution for skin prep, a large sterile sheet to cover the areas of the patient that were not prepped, and hand hygiene, mask, head covering, and sterile gown for performing radiologist and scrub technologist. The skin was anesthetized with lidocaine. The right common femoral artery was accessed using a micropuncture set. A 5 Monegasque sheath was placed. Diagnostic mesenteric angiogram was performedto access vessel patency and exclude arterio-portal shunting. A 5 Monegasque Anaya catheter which was used to select the celiac trunk for a DSA run. A 3 Monegasque microcatheter was advanced coaxially through the Anaya [...] administered. Followup DSA injection was performed. The catheterwas removed. Injection was performed through the right femoral sheath for a DSA run. The arteriotomywas closed and hemostasis was obtained with a Mynx closure device. Vital signs were monitored throughout the procedure by a nurse, and remained stable. The patient tolerated the procedure well and leftthe department in the same condition. FINDINGS: 1. [...] Successful hemostasis using closure device. Signed: Anthony Jaimeeport Verified Date/Time: 03/12/2021 14:48:55 Reading Location: [place] [id number] Angio Body Reading Room HEPATIC FUNCTION PANEL [...] (test code = 19 U/L 6-55 347) Psychology Lecturer ID - EMERSONSpecimen slightly ictericBASIC METABOLIC [id number] 07:40:33 Test Item Value Reference Range Interpretation [...] S NOT APPLICABLE FOR DIALYSIS PATIEN TS. Psychology Lecturer ID - EMERSONSpecimen slightly ictericPROTHROMBIN TIME/[id number] 07:22:36 Test Item Value Reference Range Interpretation Comments PROTIME (BEAKER) 16.9 seconds 11.9-14.2 H (test code = 759) INR (BEAKER) (test 1.40 See_Comment [Automat ed message] code = 370) The system [employer] generated this result transmitted ref erence range: <=5.90. The reference range was not used to int erpret this result as normal/abnormal . RECOMMENDED COUMADIN/WARFARIN INR THERAPY RANGESSTANDARD DOSE: 2.0 - 3.0 Includes: PROPHYLAXIS for venous thrombosis, systemic embolization; TREATMENT for venous thrombosis and/or pulmonary embolus.HIGH RISK: Target INR is 2.5-3.5 for patients with mechanical heart valves.CBC W/PLT COUNT & AUTO [id number] 07:09:25 Test Item Value Reference Range Interpretation [...] (BEAKER) (test code = 2801) BASIC METABOLIC [id number] 10:56:30 Test Item Value Reference Range Interpretation [...] S NOT APPLICABLE FOR DIALYSIS PATIEN TS. Psychology Lecturer ID Andrea REDMONDpecimen slightly ictericHEPATIC FUNCTION PANEL [...] (test code = 28 U/L 6-55 347) Psychology Lecturer ID - AMADOR REDMONDpecimekaz slightly [id number] 10:28:14 Test Item Value Reference Range Interpretation Comments PARTIAL THROMBOPLASTIN TIME 34.9 seconds 22.5-36.0 (BEAKER) (test code = 760) PROTHROMBIN [id number] 10:27:34 Test Item Value Reference Range Interpretation Comments PROTIME (BEAKER) 17.4 seconds 11.9-14.2 H (test code = 759) INR (BEAKER) (test 1.45 See_Comment [Automat ed message] code = 370) The system [employer] generated this result transmitted ref erence range: <=5.90. The reference range was not used to int erpret this result as normal/abnormal . RECOMMENDED COUMADIN/WARFARIN INR THERAPY RANGESSTANDARD DOSE: 2.0 - 3.0 Includes: PROPHYLAXIS for venous thrombosis, systemic embolization; TREATMENT for venous thrombosis and/or pulmonary embolus.HIGH RISK: Target INR is 2.5-3.5 for patients with mechanical heart valves.CBC W/PLT COUNT & AUTO [id number] 10:14:45 Test Item Value Reference Range Interpretation [...] (BEAKER) (test code = 2801) MR, ABDOMEN, [id number] 12:00:00REFERRING : ANIL SALVADOR Include Abdominal VesselsCHI [facility]Name: [facility] : 1955 Sex: MFINAL [...] 43) with focal slightly nodular peripheral enhancement whichdoes not washout (LR-TR equivocal).*Arterially enhancing observation of hepatic segment III (series 12, image 47) with associated washout and pseudocapsule formation measures 2.1 x 1.9 cm, previously 2.0 x 1.6 cm (LI-RADS 5).*Previously visualized area washout of hepatic segment III is not redemonstrated on this exam.*A 1.1 cm T2 hyperintensity without associated enhancement hepatic segment V (series3, image 22) is likely sales representative aircraft of a cyst, unchanged.*An 11 mm focus of arterial phase hyperenh ancement in segment 7 (arterial phase image 40) [...] recanalized umbilical vein. Patent main portal vein lyfvmlpax94 mm in diameter. A small amount of [...] Mckeon Verified Date/Time: 01/25/2021 12:00:12 Reading Location: [address] Transitional Reading Room Hepatitis C RNA Quantitative 2021-01-22 16:10:00 Test Item Value Reference Range Interpretation Comments HCV PCR, Quantitative HCV RNA not detected HCV RNA not (test code = 12986-0) detected MADALYN (test code = MADALYN) This test uses a Real-Time Polymerase Chain Reaction (RT-PCR) methodology and was performed using KHOA Ampliprep/KHOA TaqMan HCV test kit version 2.0 ([employer]). Reportable range for this assay is 15 - 100,000,000 IU per mL (1.18 - 8.00 Log IU/mL). Lab Interpretation Normal (test code = 02608-4) [facility] PCR, [id number] 16:10:00 Test Item Value Reference Range Interpretation Comments HCV RESULT COMPONENT HCV RNA not detected HCV RNA not detected (BEAKER) (test code = 2699) This test uses a Real-Time Polymerase Chain Reaction (RT-PCR) methodology and was performed using KHOA Ampliprep/KHOA TaqMan HCV test kit version 2.0 ([employer]).Reportable range for this assay is 15 - 100,000,000 IU per mL (1.18 - 8.00 Log IU/mL).CT, CHEST, WITHOUT [id number] 15:56:00 REFERRING MD: ANIL SAVLADOR Mets work up [facility] : 1955 Sex: MFINAL REPORT TECHNIQUE: CT of the chest WITHOUT intravenous contrast. Dose modulation, iterative reconstruction, and/or weight-based adjustment of the mA/kV was utilized to reduce the radiation dose to as low as reasonably achievable. INDICATION: Liver cell carcinoma. COMPARISON: 10/08/2020. FINDINGS: ABSENCE OF INTRAVENOUS CONTRAST DECREASES SENSITIVITY FOR DETECTION OF FOCAL LESIONS ANDVASCULAR PATHOLOGY. LINES/TUBES: None. LUNGS AND AIRWAYS: Central airways are patent. There is bibasilar atelectasis. 0.8 cm groundglass nodule within the right lower lobe. (See axial image 33). 0.3 cmnodule in the posterior right upper lobe. (Axial image 13). No new or enlarging pulmonary nodules. PL EURA: The pleural spaces are clear. HE[facility] [...] [facility] Reading Room - [place] [address] ALPHA FETOPROTEIN (AFP), TUMOR [id number] 11:33:00 Test Item Value Reference Range Interpretation Comments ALPHA-FETOPROTEIN (BEAKER) (test 2.1 ng/mL <10.0 code = 1094) Psychology Lecturer ID - ELOY MBASIC METABOLIC [id number] 11:23:00 Test Item Value Reference Range Interpretation [...] S NOT APPLICABLE FOR DIALYSIS PATIEN TS. Psychology Lecturer ID - ELOY EPATIC FUNCTION [id number] 11:23:00 Test Item Value Reference Range Interpretation [...] (test code = 23 U/L 6-55 347) Psychology Lecturer ID - ELOY MCBC W/PLT COUNT & AUTO [id number] 10:58:00 Test Item Value Reference Range Interpretation [...] PERCENT (BEAKER) (test code = 2801) PROTHROMBIN [id number] 10:46:00 Test Item Value Reference Range Interpretation Comments PROTIME (BEAKER) 16.4 seconds 11.9-14.2 H (test code = 759) INR (BEAKER) (test 1.35 See_Comment [Automat ed message] code = 370) The system [employer] generated this result transmitted ref erence range: <=5.90. The reference range was not used to int erpret this result as normal/abnormal . RECOMMENDED COUMADIN/WARFARIN INR THERAPY RANGESSTANDARD DOSE: 2.0 - 3.0 Includes: PROPHYLAXIS for venous thrombosis, systemic embolization; TREATMENT for venous thrombosis and/or pulmonary embolus.HIGH RISK: Target INR is 2.5-3.5 for patients with mechanical heart valves.ANG, EMBOLIZATION, EXTENSIVE - [id number] 08:41:00REFERRING MD: ANIL SALVADOR For TACEReason for Exam:->HCC, CIRRHOSIS [facility] : 1955 Sex: MFINAL REPORT Mesenteric angiogram and chemoembolization. History: Segment eight and segment three HCC. History of cirrhosis.. Modality: Fluoroscopy. Sedation: Versed 0.5 mg and fentanyl 50mcg was given intravenously for conscious sedation. Vital signs were monitored throughout the procedure by a nurse, and remained stable. Physician intra-service time was 70 minutes. Anesthesia: Two percent Lidocaine without epinephrine. Approach: Right common femoral artery. Estimated blood loss: <5 cc. Specimen: None. glue jointer operator: Xiang Colindres MD.. Java Integration Developer: None. Fluoroscopy Time: 14.2 min .Reference Air Kerma (Ka, r): 1613 mGy. The skin was anesthetized with lidocaine. The right common femoral artery was accessed using a 21-gauge needle and a 0.018 inch microwire. A 4 Monegasque catheter was placed over the wire and a 0.035 inch wire was placed through the catheter into the abdominal aorta. A 5 Monegasque sheath was placed over the wire. A 5 Monegasque SOS-II catheter was used to select the celiac artery for digital subtraction angiogram which demonstrated patent portal flow. A microcatheter wassubsequently used to subselect the right hepatic artery and more distal segment eight arteries for diagnostic angiograms. After supply to the segment eight tumor was verified chemoembolization was perfo rmed into a segment eight artery approximately 50 mg of doxorubicin loaded on LC beads was administered. Follow-up digital subtraction angiogram was performed. Left hepatic artery proximal and distal selective angiograms were performed in an attempt to identify the segment three lesion which was unsuccessful. The catheter was removed. Injection was performed through the right femoral sheath for a DSArun. The arteriotomy was closed and hemostasis was obtained with a Angio-Seal closure device. Vital signs were monitored throughout the procedure by a nurse, and remained stable. The patient tolerated the procedure well and left the department in the same condition. FINDINGS: 1. Celiac injection: The s plenic artery, common hepatic artery, left gastric artery, and gastroduodenal artery are patent withnormal branching pattern. The splenic vein is patent. 2. Right hepatic artery injection identifies asingle branch supplying segment eight and segment seven.3. [...] three hypervascular tumor was not successfully identified.5. Rightcommon femoral artery injection: Patent right femoral artery [...] Xiang Colindres MDReport Verified Date/Time: 11/27/2020 08:41:43 C METABOLIC [id number] 08:59:00 Test Item Value Reference Range Interpretation [...] S NOT APPLICABLE FOR DIALYSIS PATIEN TS. Psychology Lecturer ID - PIAYA LSpecimen slightly ictericHEPATIC FUNCTION [id number] 08:59:00 Test Item Value Reference Range Interpretation [...] (test code = 24 U/L 6-55 347) Psychology Lecturer ID - PIDAMIAN LSpecimen slightly ictericPROTHROMBIN [id number] 08:49:00 Test Item Value Reference Range Interpretation Comments PROTIME (BEAKER) 16.7 seconds 11.9-14.2 H (test code = 759) INR (BEAKER) (test 1.37 See_Comment [Automat ed message] code = 370) The system [employer] generated this result transmitted ref erence range: <=5.90. The reference range was not used to int erpret this result as normal/abnormal . RECOMMENDED COUMADIN/WARFARIN INR THERAPY RANGESSTANDARD DOSE: 2.0 - 3.0 Includes: PROPHYLAXIS for venous thrombosis, systemic embolization; TREATMENT for venous thrombosis and/or pulmonary embolus.HIGH RISK: Target INR is 2.5-3.5 for patients with mechanical heart valves.CBC W/PLT COUNT & AUTO [id number] 08:49:00 Test Item Value Reference Range Interpretation [...] 0-1 PERCENT (BEAKER) (test code = 2801) [id number] 08:49:00 Test Item Value Reference Range Interpretation Comments PARTIAL THROMBOPLASTIN TIME 34.6 seconds 22.5-36.0 (BEAKER) (test code = 760) HEPATITIS C PCR, [id number] 19:54:00 Test Item Value Reference Range Interpretation Comments HCV RESULT COMPONENT HCV RNA not detected HCV RNA not detected (BEAKER) (test code = 2699) This test uses a Real-Time Polymerase Chain Reaction (RT-PCR) methodology and was performed using KHOA Ampliprep/KHOA TaqMan HCV test kit version 2.0 ([employer]).Reportable range for this assay is 15 - 100,000,000 IU per mL (1.18 - 8.00 Log IU/mL).BASIC METABOLIC [id number] 12:10:00 Test Item Value Reference Range Interpretation [...] S NOT APPLICABLE FOR DIALYSIS PATIEN TS. Psychology Lecturer ID - FSEHEPATIC FUNCTION [id number] 12:10:00 Test Item Value Reference Range Interpretation [...] (test code = 26 U/L 6-55 347) Psychology Lecturer ID - FSECBC W/PLT COUNT & AUTO [id number] 12:01:00 Test Item Value Reference Range Interpretation [...] PERCENT (MADISON) (test code = 2801) PROTHROMBIN [id number] 11:53:00 Test Item Value Reference Range Interpretation Comments PROTIME (MADISON) 16.3 seconds 11.9-14.2 H (test code = 759) INR (MADISON) (test 1.35 See_Comment [Automat ed message] code = 370) The system [employer] generated this result transmitted ref erence range: [...] WHOLE BODY 2020-10-08 17:40:00REFERRING MD: ANIL SALVADOR [facility] : 1955 Sex: MFINAL REPORT PROCEDURE: BONE SCAN, WHOLE BODY CPT CODE: 36872 INDICATION: Hepatocellularcarcinoma PROTOCOL: 21.0 mCi of Tc-99m MDP was injected intravenously. Whole body and selected spotimages were obtained approximately 4 hours later. FINDINGS: Tracer activity is focally moderately inc reased in the maxilla bilaterally and in the knees. There is mild, diffuse increase in activity in the shoulders, sternoclavicular joints, hips, and feet. IMPRESSION: 1. No evidence of bony neoplastic disease.2. 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 Periodontal abnormality. Images for comparison/correlation were today's chest CT in the abdominal MRI of 09/01/2020. Signed: Dre Luna MDRepdaron Verified Date/Time: 10/08/2020 17:40:47 Reading Location: [address] [address] [facility] Reading Room CT, CHEST, WITHOUT [id number] 12:54:00REFERRING MD: ANIL SALVADOR [facility] : 1955 Sex: MFINAL [...] subsegmental atelectasis.3. Hiatal hernia4. Cirrhosis.Signed: Brenda De Dios MDReport Verified Date/Time: 10/08/2020 12:54:21 Reading Location: [facility] B[facility] C[facility] CT Body Reading Room ALPHA FETOPROTEIN (AFP), TUMOR [id number] 12:52:00 Test Item Value Reference Range Interpretation Comments ALPHA-FETOPROTEIN (BEAKER) (test 2.5 ng/mL <10.0 code = 1094) Psychology Lecturer ID - DEBORAH CBASIC METABOLIC [id number] 11:26:00 Test Item Value Reference Range Interpretation [...] S NOT APPLICABLE FOR DIALYSIS PATIEN TS. Psychology Lecturer ID - PIAYA LHEPATIC FUNCTION [id number] 11:26:00 Test Item Value Reference Range Interpretation [...] (test code = 29 U/L 6-55 347) Psychology Lecturer ID - PIAYA LCBC W/PLT COUNT & AUTO [id number] 11:14:00 Test Item Value Reference Range Interpretation [...] PERCENT (BEAKER) (test code = 2801) PROTHROMBIN [id number] 11:12:00 Test Item Value Reference Range Interpretation Comments PROTIME (BEAKER) 16.7 seconds 11.9-14.2 H (test code = 759) INR (BEAKER) (test 1.39 See_Comment [Automat ed message] code = 370) The system [employer] generated this result transmitted ref erence range: [...] for patients wiht mechanical heart valves.MR, ABDOMEN, [id number] 16:24:00 REFERRING MD: ANIL SALVADOR Include Abdominal VesselsUnlisted Reason for Exam - Click Yes and EnterReason Below->YesUnlisted Reason for Exam->awaiting organ transplant, cirrhosis, screening forcancer [facility] : 1955 Sex: MFINAL [...] sized right pleural effusion Signed: Tawanda Alvarez [facility] Verified Date/Time: 09/02/2020 16:24:23 ALPHA FETOPROTEIN (AFP), TUMOR [id number] 16:57:00 Test Item Value Reference Range Interpretation Comments ALPHA-FETOPROTEIN (BEAKER) (test code < ng/mL <10.0 = 1094) Psychology Lecturer ID - BSBASIC METABOLIC [id number] 14:50:00 Test Item Value Reference Range Interpretation [...] S NOT APPLICABLE FOR DIALYSIS PATIEN TS. Psychology Lecturer ID - EDASISpecimen slightly ictericHEPATIC FUNCTION [id number] 14:50:00 Test Item Value Reference Range Interpretation [...] (test code = 26 U/L 6-55 347) Psychology Lecturer ID - EDASISpecimen slightly ictericCBC W/PLT COUNT & AUTO [id number] 14:45:00 Test Item Value Reference Range Interpretation [...] PERCENT (BEAKER) (test code = 2801) PROTHROMBIN [id number] 14:40:00 Test Item Value Reference Range Interpretation Comments PROTIME (MADISON) 17.6 seconds 11.9-14.2 H (test code = 759) INR (BEJOSE) (test 1.49 See_Comment [Automat ed message] code = 370) The system [employer] generated this result transmitted ref erence range: [...] for patients wiht mechanical heart valves.Chest 1 [id number] 14:03:55 Small right pleural effusion with right basilar pneumonia and/oratelectasis. RL: [phone] Patient name: KALEN Kirkland MONI: 1955 64 years EXAMINATION: XR CHEST 1 VW Ordering Physician: WENDY BULL CLINICAL HISTORY:Shortness of breath COMPARISON:None TECHNIQUE:Single frontal view of the chest was performed. The technique of thisexaminationis adequate. FINDINGS:Normal lung volumes. Airspace opacity seen at the right lung base. Suspectsmall right effusion. No pneumothorax. Heart size is normal without edema.Normal aortic contours. No acute osseous abnormality. Ksmb, Radiant Results Inft User - 08/19/2020 9:04 AM CDTPatient name: KALEN FLORESPRESLEY: 1955 64 years EXAMINATION: [...] effusion with right basilar pneumonia and/oratelectasis.RL: 7000 [facility] AllenTrop[facility] [id number] 13:32:55 Test Item Value Reference Range Interpretation Comments TROPONIN I (test <0.012 See_Comment [Automated code = [id number]) message] The system which generated this result [...] ? Lab Interpretation Normal (test code = 31317-4) [facility] AllenN-TERMINAL [id number] 13:29:55 Test Item Value Reference Range Interpretation Comments NT-proBNP (test code 119 pg/mL See_Comment [Autom ated = [id number]) message] The system which generated this result transmitted reference range : <=125. The reference range was not used to interpret this result as normal/abnormal . MADALYN (test code = MADALYN) Biotin has been reported to cause a negative bias, interpret results relative to patient's use of biotin. Lab Interpretation Normal (test code = 82313-4) [facility]ID [facility])2020-08-19 13:23:14 Test Item Value Reference Range Interpretation Comments SARS-CoV-2 Rapid ID NOW Not Detected Not Detected (test code = 83922-4) MADALYN (test code = MDAALYN) ID NOW COVID-19 Assay is an isothermal nucleic acid amplification test intended for the qualitative detection of nucleic acid from SARS-CoV-2 viral RNA in nasopharyngeal (GRAPHIC DESIGN INTERN) specimens. It is used under Emergency Use [...] indicated. Lab Interpretation Normal (test code = 30303-9) [facility] (NA, K, CL, CO2, GLUCOSE, BUN, CREATININE, CA)2020-08-19 13:21:13 Test Item Value Reference Range Interpretation Comments NA (test code = 135 mmol/L 135-145 7776214508) K (test code = 4.1 mmol/L 3.5-5.0 0487577282) CL (test code = 106 mmol/L 98-108 1727844536) CO2 TOTAL (test code = 24 mmol/L 23-31 7748907786) AGAP (test code = 2-16 9290665935) BUN (test code = 7 mg/dL 7-23 2337936605) GLUCOSE (test code = 216 mg/dL 70-110 H 4198896139) CREATININE (test code = 0.59 mg/dL 0.60-1.25 L 8720504721) CALCIUM (test code = 8.2 mg/dL 8.6-10.6 L 1194771063) eGFR Calculation mL/min/1.73m2 (Non-) (test code = 6675792737) eGFR Calculation mL/min/1.73m2 () (test code = 5804044861) MADALYN (test code = MADALYN) Association of [...] tests). Lab Interpretation Abnormal (test code = 50714-7) [facility] (ALB, T.PRO, BILI T, BU/BC, ALT, AST, ALK PHOS)2020-08-19 13:21:12 Test Item Value Reference Range Interpretation Comments TOTAL BILI (test code = 5443118254) 1.9 mg/dL 0.1-1.1 H BILI UNCON (test code = 8837526898) 1.7 mg/dL 0.1-1.1 H BILI CONJ (test code = 1494132573) 0.0 mg/dL 0.0-0.3 T PROTEIN (test code = 2599568402) 6.3 g/dL 6.3-8.2 ALBUMIN (test code = 7017305493) 3.0 g/dL 3.5-5.0 L ALK PHOS (test code = 4797403995) 162 U/L 34-122 H ALTv (test code = 1742-6) 25 U/L 5-50 AST(SGOT) (test code = 3110669760) 41 U/L 13-40 H Lab Interpretation (test code = Abnormal 99449-8) [facility] [id number] 13:21:12 Test Item Value Reference Range Interpretation Comments LIPASE (test code = 8994082927) 145 U/L 0-220 Lab Interpretation (test code = Normal 43730-6) [facility] with [id number] 13:17:56 Test Item Value Reference Range Interpretation [...] RDW-SD (test code = 48.3 fL 38.5-51.6 73415-9) RDW-CV (test code = 21.4 % 12.1-15.4 H 788-0) PLT (test code = See_Comment L [Automated 777-3) message] The sy stem which generated this result transmitted reference range : 150 - 328 10*3/ ?L. The reference r mela was not used to interpret this result as normal/abnormal . MPV (test code = Not Measure d 75955-9) IPF % (test code = 2.3 % 1.2-10.7 Platelet count 6331618198) measured by fluorescence method. NRBC/100 WBC (test See_Comment [Automat ed code = 9087188897) message] The system which generated this result transmitted reference range : 0.0 - 10.0 /100 WBCs. The refer ence range was not u sed to interpret th is result as normal/abnormal . NRBC x10^3 (test code <0.01 See_Comment [Auto mated = 1661143952) message] The s ystem which generated this result transmitted reference range : 10*3/?L. The reference range was not used to interpret this result as normal/abnormal . GRAN MAT (NEUT) % 56.4 % (test code = 770-8) IMM GRAN % (test code 0.20 % = 0305939647) LYMPH % (test code = 27.6 % 736-9) MONO % (test code = 10.7 % 5905-5) EOS % (test code = 3.7 % 713-8) BASO % (test code = 1.4 % 706-2) GRAN MAT x10^3(ANC) 2.47 10*3/uL 1.99-6.95 (test code = 4221322676) IMM GRAN x10^3 (test <0.03 0.00-0.06 code = 0376032459) LYMPH x10^3 (test code 1.21 10*3/uL 1.09-3.23 = 731-0) MONO x10^3 (test code 0.47 10*3/uL 0.36-1.02 = 742-7) EOS x10^3 (test code = 0.16 10*3/uL 0.06-0.53 711-2) BASO x10^3 (test code 0.06 10*3/uL 0.01-0.09 = 704-7) Lab Interpretation Abnormal (test code = 58088-9) [facility]PROT[facility]OMBIN [facility] / [id number] 01:49:00 Test Item Value Reference Range Interpretation Comments PROTIME PATIENT (test See_Comment H [Auto mated message] code = 5964-2) The system wh ich generated this result transmitted ref erence range: 12.0 - 1 4.7 Seconds. The reference range was not used to int erpret this result as normal/abnormal . INR (test code = 6301-6) Nor mal INR <1.1; Warfarin Therap eutic range 2.0 to 3. 0 or 2.5 to 3.5, dep ending upon the indica tions. Lab Interpretation (test Abnormal code = 47936-9) [facility]IUM2021-01-29 01:27:00 Test Item Value Reference Range Interpretation Comments MAGNESIUM (test code = 9296180050) 1.6 mg/dL 1.7-2.4 L Lab Interpretation (test code = Abnormal 02898-1) [facility] AllenAMMONIA, [id number] 01:26:00 Test Item Value Reference Range Interpretation Comments AMMONIA (test code = 7266249848) 37 umol/L 9-33 H Lab Interpretation (test code = Abnormal 57065-8) [facility] AllenUrinalysis2021-01-29 00:30:00 Test Item Value Reference Range Interpretation Comments APPEARANCE (test code = Clear Clear 2617477900) COLOR (test code = Addison Yellow A 0496671715) PH (test code = 4.8-8.0 5730935757) SP GRAVITY (test code = 1.003-1.030 9560821842) GLU U QUAL (test code = Normal Normal 3561094995) BLOOD (test code = Negative Negative INTERFERE NCE FROM 8090730032) ASCORBIC ACID M AY CAUSE FALSE NEG ATIVE RESULT KETONES (test code = Negative Negative 1919563371) PROTEIN (test code = Negative Negative 2887-8) UROBILIN (test code = 4.0 mg/dL Normal A 0099799193) BILIRUBIN (test code = Negative Negative 3304813427) NITRITE (test code = Negative Negative 5667090384) LEUK KIKI (test code = Negative Negative 6054973790) RBC/HPF (test code = See_Comment [Autom ated message] 1051718381) The system [facility] h generated this result transmitted ref erence range: 0 - 3 HP F. The reference range was not used to int erpret this result as normal/abnormal . WBC/HPF (test code = See_Comment [Autom ated message] 7522494826) The system [employer] generated this result transmitted ref erence range: 0 - 5 HP F. The reference range was not used to int erpret this result as normal/abnormal . BACTERIA (test code = Negative Negative 1122979786) MUCOUS (test code = Slight Negative LPF A 3904681148) SQ EPITH (test code = HPF 7573825811) CA OXALATE (test code = See_Comment [Au tomated message] 5690877518) The system [employer] generated this result transmitted ref erence range: <=1 HPF. The reference range was not used to int erpret this result as normal/abnormal . TRANS EPI (test code = <1 See_Comment [Aut omated message] 0684409682) The system [employer] generated this result transmitted ref erence range: <=1 HPF. The reference range was not used to int erpret this result as normal/abnormal . Lab Interpretation Abnormal (test code = 83223-8) [facility] 1 [id number] 00:22:38Elevation of the right hemidiaphragm of moderate [...] CSTCHEST SINGLE VIEWHISTORY: SOB ORDERING PHYSICIAN: CAROLINA ARAYAVERTECHNIQUE:Frontal view of chestCOMPARISON: None available.FINDINGS:The cardiac silhouette is mildly enlargedThere is elevation of the right hemidiaphragm. There are moderate patchyopacities in the right lung base. No large pleural effusion. Nopneumothorax.No acute osseous abnormality. IMPRESSIONElevation of theright hemidiaphragm of moderate patchy opacities in theright lung base which may be due to atelectasis or pneumonia.RL: 4131 End of report [facility] SystemTrop[facility] [id number] 00:18:00 Test Item Value Reference Range Interpretation Comments TROPONIN I (test <0.012 See_Comment [Automated code = 5680008648) message] The system which generated this result [...] ? Lab Interpretation Normal (test code = 92221-9) [facility]N-TERMINAL [id number] 00:15:00 Test Item Value Reference Range Interpretation Comments NT-proBNP (test code 175 pg/mL See_Comment H [Autom ated = 6215706774) message] The system which generated this result transmitted reference range : <=125. The reference range was not used to interpret this result as normal/abnormal . MADALYN (test code = MADALYN) Biotin has been reported to cause a negative bias, interpret results relative to patient's use of biotin. Lab Interpretation Abnormal (test code = 93804-8) [facility] (ID NOW RAPID TESTING)2020-06-26 00:08:00 Test Item Value Reference Range Interpretation Comments SARS-CoV-2 Rapid ID NOW Not Detected Not Detected (test code = 04689-5) MADALYN (test code = MADALYN) ID NOW COVID-19 Assay is an isothermal nucleic acid amplification test intended for the qualitative detection of nucleic acid from SARS-CoV-2 viral RNA in nasopharyngeal (GRAPHIC DESIGN INTERN) specimens. It is used under Emergency Use [...] indicated. Lab Interpretation Normal (test code = 76043-0) [facility] Metabolic Panel (NA, K, CL, CO2, GLUCOSE, BUN, CREATININE, CA)2020-06-26 00:06:00 Test Item Value Reference Range Interpretation Comments NA (test code = 137 mmol/L 135-145 3353097368) K (test code = 3.4 mmol/L 3.5-5 L 6364709540) CL (test code = 104 mmol/L 98-108 8699893345) CO2 TOTAL (test code = 26 mmol/L 23-31 4884240601) AGAP (test code = 2-16 7455585958) BUN (test code = 6 mg/dL 7-23 L 3010834762) GLUCOSE (test code = 118 mg/dL 70-110 H 1568059711) CREATININE (test code = 0.60 mg/dL 0.6-1.25 4936689723) CALCIUM (test code = 7.9 mg/dL 8.6-10.6 L 6307120818) eGFR Calculation mL/min/1.73m2 (Non-) (test code = 6513334410) eGFR Calculation mL/min/1.73m2 () (test code = 3776710210) MADALYN (test code = MADALYN) Association of [...] tests). Lab Interpretation Abnormal (test code = 91019-6) [facility] (ALB, T.PRO, BILI T, BU/BC, ALT, AST, ALK PHOS)2020-06-26 00:06:00 Test Item Value Reference Range Interpretation Comments TOTAL BILI (test code = 8250873881) 2.2 mg/dL 0.1-1.1 H BILI UNCON (test code = 0730807496) 1.8 mg/dL 0.1-1.1 H BILI CONJ (test code = 7114639874) 0.0 mg/dL 0-0.3 T PROTEIN (test code = 1943193826) 6.8 g/dL 6.3-8.2 ALBUMIN (test code = 7740420153) 3.1 g/dL 3.5-5 L ALK PHOS (test code = 9453530594) 162 U/L 34-122 H ALTv (test code = 1742-6) 22 U/L 5-50 AST(SGOT) (test code = 8864416738) 42 U/L 13-40 H Lab Interpretation (test code = Abnormal 27984-9) [facility] AllenLip[facility] [id number] 00:06:00 Test Item Value Reference Range Interpretation Comments LIPASE (test code = 6661954700) 156 U/L 0-220 Lab Interpretation (test code = Normal 15553-8) [facility]CBC with [id number] 00:00:00 Test Item Value Reference Range Interpretation [...] RDW-SD (test code = 49.4 fL 38.5-51.6 28324-3) RDW-CV (test code = 21.6 % 12.1-15.4 H 788-0) PLT (test code = See_Comment L [Automated 777-3) message] The sy stem which generated this result transmitted reference range : 150 - 328 10*3/ ?L. The reference r mela was not used to interpret this result as normal/abnormal . MPV (test code = Not Measure d 13266-4) IPF % (test code = 1.9 % 1.2-10.7 Platelet count 1308387005) measured by fluorescence method. NRBC/100 WBC (test See_Comment [Automat ed code = 1429684268) message] The system which generated this result transmitted reference range : 0.0 - 10.0 /100 WBCs. The refer ence range was not u sed to interpret th is result as normal/abnormal . NRBC x10^3 (test code <0.01 See_Comment [Auto mated = 6485618048) message] The s ystem which generated this result transmitted reference range : 10*3/?L. The reference range was not used to interpret this result as normal/abnormal . GRAN MAT (NEUT) % 44.8 % (test code = 770-8) IMM GRAN % (test code 0.20 % = 6159746283) LYMPH % (test code = 37.2 % 736-9) MONO % (test code = 13.6 % 5905-5) EOS % (test code = 2.7 % 713-8) BASO % (test code = 1.5 % 706-2) GRAN MAT x10^3(ANC) 2.47 10*3/uL 1.99-6.95 (test code = 3764516902) IMM GRAN x10^3 (test <0.03 0-0.06 code = 6088663165) LYMPH x10^3 (test code 2.05 10*3/uL 1.09-3.23 = 731-0) MONO x10^3 (test code 0.75 10*3/uL 0.36-1.02 = 742-7) EOS x10^3 (test code = 0.15 10*3/uL 0.06-0.53 711-2) BASO x10^3 (test code 0.08 10*3/uL 0.01-0.09 = 704-7) Lab Interpretation Abnormal (test code = 90522-6) [facility] [id number] 12:02:00 Test Item Value Reference Range Interpretation Comments SCAN RESULT (test code = 4817298) SARS-COV2/RT-PCR ([facility])2020-03-13 20:20:00 Test Item Value Reference Range Interpretation Comments SARS-COV2/RT-PCR (test Negative Not Detected, Negative, code = 2338296) See external report for linked test SARS-COV-2 PERFORMING LAB [facility] KAT (test code = 0146715) Negative result for this test determines that [...] of the Act.Fact Sheet for Healthcare Prov iders:https://www.[employer]/sites/default/files/product/documents/Fact_Sheet_HC _Dlwenjkap_Eqwx_QSQC-CbD-1.pdfFact Sheet for Healthcare Patients:https://www.[employer]/sites/default/files/product/docume nts/Ofxk_Cdsgr_Lxamfkaj_Ppzn_MXRQ-FuN-2.pdfPerforming Laboratory:[facility].[place], [place] [address]MN, ABDOMEN, WITH 2020-03-13 14:43:00REFERRING : ANIL SALVADOR Include Abdominal VesselsUnlisted Reason for Exam - Click Yes and EnterReason Below- >YesUnlisted Reason for Exam->listed for liver transplant, screening for malignancyCH[facility] : 1955 Sex: MFINAL [...] in the liver. Spleen is enlarged measuring ucxprfqilvezl18.8 x 4.9 x 11.4 cm. The splenic, [...] (test code < ng/mL <10.0 = 1094) Psychology Lecturer ID - AAHAMIDCOMPREHENSIVE METABOLIC [id number] 12:54:00 Test Item Value Reference Range Interpretation [...] S NOT APPLICABLE FOR DIALYSIS PATIEN TS. Psychology Lecturer ID - AAHAMIDDARLENE, BONE DENSITY [id number] 12:46:00REFAPRILING : ANIL SALVADOR Reason for Exam:->on liver transplant waiting list [facility] : 1955 Sex: MFINAL REPORT Bone density study, 03/13/2020 Clinical History: Screening Bone mineral density measurementLumbar spine1.110 gm/qo7Caqjurl neck0.918 gm/cm2 Standard deviation from young adult [...] Riveraort Verified Date/Time: 03/13/2020 12:46:53 Reading Location: [address] Reading Room BILIRUBIN, [id number] 12:38:00 Test Item Value Reference Range Interpretation Comments BILIRUBIN DIRECT (BEAKER) (test 1.0 mg/dL 0.1-0.5 H code = 706) Psychology Lecturer ID - AAHAMIDPROTHROMBIN TIME/[id number] 12:23:00 Test Item Value Reference Range Interpretation [...] mechanical heart valves.CBC W/PLT COUNT & AUTO [id number] 12:16:00 Test Item Value Reference Range Interpretation [...] PERCENT (BEAKER) (test code = 2801) BLOOD [id number] 20:00:00 Test Item Value Reference Range Interpretation Comments CULTURE (BEAKER) (test No growth in 5 days code = 1095) BLOOD [id number] 20:00:00 Test Item Value Reference Range Interpretation Comments CULTURE (BEAKER) (test No growth in 5 days code = 1095) POCT-GLUCOSE [id number] 07:47:00 Test Item Value Reference Range Interpretation Comments POC-GLUCOSE METER 121 mg/dL 70-110 H : TESTED A T [facility] 67[address] (BEAKER) (test code = [place], 1538) 75783: Psychology Lecturer/Techni zaire ID = [id number] for RADHA GARVEY HEPATIC FUNCTION [id number] 07:24:00 Test Item Value Reference Range Interpretation [...] (test code = 25 U/L 6-55 347) Psychology Lecturer ID - PIAYA [employer]erissan slightly ictericPOCT-GLUCOSE [id number] 22:18:00 Test Item Value Reference Range Interpretation Comments POC-GLUCOSE METER 143 mg/dL 70-110 H : TESTED A T [facility] 6720 (BEAKER) (test code = [facility], 153) 24226: Psychology Lecturer/Techni zaire ID = [id number] for CA ELICIA CHEWI POCT-GLUCOSE [id number] 17:24:00 Test Item Value Reference Range Interpretation Comments POC-GLUCOSE METER 214 mg/dL 70-110 H : TESTED A T [facility] 6720 (BEAKER) (test code = [facility], 1538) 77909: Psychology Lecturer/Techni zaire ID = [id number] for SA NTOS, WADE POCT-GLUCOSE [id number] 13:32:00 Test Item Value Reference Range Interpretation Comments POC-GLUCOSE METER 127 mg/dL 70-110 H : TESTED A T [facility] 6720 (BEAKER) (test code = [facility], [facility]8) 72589: Psychology Lecturer/Techni zaire ID = [id number] for SA NTOS, WADE POCT-GLUCOSE [id number] 12:08:00 Test Item Value Reference Range Interpretation Comments POC-GLUCOSE METER 124 mg/dL 70-110 H : TESTED A T [facility] 6720 (BEAKER) (test code = [facility], 1538) 07223: Psychology Lecturer/Techni zaire ID = [id number] for FO CHARI STEELE POCT-GLUCOSE [id number] 08:16:00 Test Item Value Reference Range Interpretation Comments POC-GLUCOSE METER 117 mg/dL 70-110 H : TESTED A T [facility] 6720 (BEAKER) (test code = [facility], 1538) 48238: Psychology Lecturer/Techni zaire ID = [id number] for SA NTOS, WADE BASIC METABOLIC [id number] 06:13:00 Test Item Value Reference Range Interpretation [...] S NOT APPLICABLE FOR DIALYSIS PATIEN TS. Psychology Lecturer ID - KRISHNA ZAVALETAray slightly ictericHEPATIC FUNCTION [id number] 06:13:00 Test Item Value Reference Range Interpretation [...] (test code = 27 U/L 6-55 347) Psychology Lecturer ID - KRISHNA ZAVALETAray slightly ictericPROTHROMBIN TIME/[id number] 05:46:00 Test Item Value Reference Range Interpretation [...] mechanical heart valves.CBC W/PLT COUNT & AUTO [id number] 05:21:00 Test Item Value Reference Range Interpretation [...] PERCENT (BEAKER) (test code = 2801) POCT-GLUCOSE [id number] 22:38:00 Test Item Value Reference Range Interpretation Comments POC-GLUCOSE METER 181 mg/dL 70-110 H : TESTED A T [facility] 6720 (BEAKER) (test code = [place], 1538) 73663: Psychology Lecturer/Techni zaire ID = [id number] for RON BLANCO (CELLAVISION MANUAL DIFF)2019-12-28 15:15:00 [...] CONCENTRATION Decreased (CELLAVISION)(BEAKER) (test code = 3438) Psychology Lecturer ID - CarterMalena Christo comments: Slide comments:CBC W/PLT COUNT & AUTO [id number] 15:11:00 Test Item Value Reference Range Interpretation [...] PERCENT (BEAKER) (test code = 2801) POCT-GLUCOSE [id number] 10:15:00 Test Item Value Reference Range Interpretation Comments POC-GLUCOSE METER 178 mg/dL 70-110 H : TESTED A T [facility] 6720 (BEAKER) (test code = [facility], 1538) 15340: Psychology Lecturer/Techni zaire ID = [id number] for DELPHINE JUAREZ POCT-GLUCOSE [id number] 09:08:00 Test Item Value Reference Range Interpretation Comments POC-GLUCOSE METER 167 mg/dL 70-110 H : TESTED A T [facility] 6720 (BEAKER) (test code = [facility], 1538) 54241: Psychology Lecturer/Techni zaire ID = [id number] for SAMIRA COWAN BASIC METABOLIC [id number] 07:06:00 Test Item Value Reference Range Interpretation [...] S NOT APPLICABLE FOR DIALYSIS PATIEN TS. Psychology Lecturer ID - PIAYA LSpecimen slightly ictericHEPATIC FUNCTION [id number] 07:06:00 Test Item Value Reference Range Interpretation [...] (test code = 20 U/L 6-55 347) Psychology Lecturer ID - PIAYA LSpecimen slightly ictericPOCT-GLUCOSE [id number] 22:05:00 Test Item Value Reference Range Interpretation Comments POC-GLUCOSE METER 216 mg/dL 70-110 H : TESTED A T [facility] 6720 (BEAKER) (test code = ABELGA Juan J [place], 1538) 69365: Psychology Lecturer/Techni zaire ID = [id number] for DAVID TALBERT POCT-GLUCOSE [id number] 17:07:00 Test Item Value Reference Range Interpretation Comments POC-GLUCOSE METER 244 mg/dL 70-110 H : TESTED A T [facility] 6720 (BEAKER) (test code = NICOLE Arita [place], 1538) 86741: Psychology Lecturer/Techni zaire ID = [id number] for IB ANUSHA TOLBERTLEM CBC W/PLT COUNT & AUTO [id number] 12:15:00 Test Item Value Reference Range Interpretation [...] PERCENT (BEAKER) (test code = 2801) POCT-GLUCOSE [id number] 11:54:00 Test Item Value Reference Range Interpretation Comments POC-GLUCOSE METER 226 mg/dL 70-110 H : TESTED A T [facility] 6720 (BEAKER) (test code = [place], 1538) 21250: Psychology Lecturer/Techni zaire ID = [id number] for IB CHUCHO TOLBERT BASIC METABOLIC [id number] 08:18:00 Test Item Value Reference Range Interpretation [...] S NOT APPLICABLE FOR DIALYSIS PATIEN TS. Psychology Lecturer ID - NTPPOCT-GLUCOSE [id number] 08:07:00 Test Item Value Reference Range Interpretation Comments POC-GLUCOSE METER 166 mg/dL 70-110 H : TESTED A T [facility] 6720 (BEAKER) (test code = [facility], 1538) 36972: Psychology Lecturer/Techni zaire ID = [id number] for IB CHUCHO TOLBERT HEPATIC FUNCTION [id number] 05:05:00 Test Item Value Reference Range Interpretation [...] (test code = 19 U/L 6-55 347) Psychology Lecturer ID - EDASISpecimen slightly ictericPOCT-GLUCOSE [id number] 17:47:00 Test Item Value Reference Range Interpretation Comments POC-GLUCOSE METER 222 mg/dL 70-110 H : TESTED A T [facility] 6720 (BEAKER) (test code = [facility], 153) 80198: Psychology Lecturer/Techni zaire ID = [id number] for BRAXTON MORAN POCT-GLUCOSE [id number] 12:25:00 Test Item Value Reference Range Interpretation Comments POC-GLUCOSE METER 311 mg/dL 70-110 H : TESTED A T [facility] 6720 (BEAKER) (test code = [facility], 1538) 76601: Psychology Lecturer/Techni zaire ID = [id number] for ANEESH RTINEZ, BRAXTON POCT-GLUCOSE [id number] 07:49:00 Test Item Value Reference Range Interpretation Comments POC-GLUCOSE METER 190 mg/dL 70-110 H : TESTED A T [facility] 6720 (BEAKER) (test code = [place], 1538) 06513: Psychology Lecturer/Techni zaire ID = [id number] for BRAXTON MORAN VITAMIN B12 AND [id number] 06:11:00 Test Item Value Reference Range Interpretation Comments VITAMIN B12 (BEAKER) (test code = 873 pg/mL 213-816 H 774) FOLATE (BEAKER) (test code = 362) 12.30 ng/mL >=7.00 Psychology Lecturer ID - EDASIBASIC METABOLIC [id number] 05:21:00 Test Item Value Reference Range Interpretation [...] S NOT APPLICABLE FOR DIALYSIS PATIEN TS. Psychology Lecturer ID - EDASIHEPATIC FUNCTION [id number] 05:21:00 Test Item Value Reference Range Interpretation [...] (test code = 19 U/L 6-55 347) Psychology Lecturer ID - EDASICBC W/PLT COUNT & AUTO [id number] 05:12:00 Test Item Value Reference Range Interpretation [...] PERCENT (BEAKER) (test code = 2801) PROTHROMBIN TIME/[id number] 04:56:00 Test Item Value Reference Range Interpretation [...] 2.5-3.5 for patients wiht mechanical heart valves.POCT-GLUCOSE [id number] 22:11:00 Test Item Value Reference Range Interpretation Comments POC-GLUCOSE METER 195 mg/dL 70-110 H : TESTED A T [facility] 6720 (BEAKER) (test code = [place], 1538) 68228: Psychology Lecturer/Techni zaire ID = [id number] for ADDIE SAMIRA HEMOGLOBIN AND [id number] 16:15:00 Test Item Value Reference Range Interpretation Comments HEMOGLOBIN (BEAKER) (test code = 8.6 GM/DL 13.7-17.5 L 410) HEMATOCRIT (BEAKER) (test code = 30.2 % 40.1-51.0 L 411) Psychology Lecturer ID - [id number] 13:02:00 Test Item Value Reference Range Interpretation Comments FERRITIN (BEAKER) (test code = 73.10 ng/mL 5.00-275.00 361) Psychology Lecturer ID - EDASIIRON, TIBC, % SAT. (WITHOUT FERRITIN)2019-12-25 12:42:00 Test Item Value Reference Range Interpretation Comments IRON (BEAKER) (test code = 547) 29.0 ug/dL 40.0-160.0 L TOTAL IRON BINDING CAPACITY 151 ug/dL 250-450 L (BEAKER) (test code = 769) IRON % SATURATION (2) (BEAKER) 19 % 20-55 L (test code = 2590) Psychology Lecturer ID - EDASICOMPREHENSIVE METABOLIC [id number] 06:44:00 Test Item Value Reference Range Interpretation [...] S NOT APPLICABLE FOR DIALYSIS PATIEN TS. Psychology Lecturer ID - EDASICBC W/PLT COUNT & AUTO [id number] 05:55:00 Test Item Value Reference Range Interpretation [...] PERCENT (BEAKER) (test code = 2801) POCT-GLUCOSE [id number] 23:39:00 Test Item Value Reference Range Interpretation Comments POC-GLUCOSE METER 307 mg/dL 70-110 H : TESTED A T [facility] (BEAKER) (test code = NICOLE ALAN [place], 1538) [address]: Psychology Lecturer/Techni zaire ID = [id number] for Erendira Talbert (contrac t) RAD, CHEST, 1 VIEW, NON [id number] 18:52:00REFERRING MD: ANIL SALVADOR Reason for exam:->sobShould [...] MDReport Verified Date/Time: 12/24/2019 18:52:34 Reading Location: [address] Consult Reading Room BASI METABOLIC PANEL [...] Specimen slightly ictericCBC W/PLT COUNT & AUTO [id number] 08:54:00 Test Item Value Reference Range Interpretation [...] (BEAKER) (test code = 2801) HEPATITIS C [id number] 12:25:00 Test Item Value Reference Range Interpretation Comments HEPATITIS C ANTIBODY (BEAKER) (test Reactive Nonreactive A code = 367) ALPHA FETOPROTEIN (AFP), TUMOR [id number] 15:45:00 Test Item Value Reference Range Interpretation Comments ALPHA-FETOPROTEIN (BEAKER) (test 2.7 ng/mL <10.0 code = 1094) BASIC METABOLIC [id number] 15:36:00 Test Item Value Reference Range Interpretation [...] DIALYSIS PATIEN TS. Specimen slightly ictericHEPATIC FUNCTION [id number] 15:35:00 Test Item Value Reference Range Interpretation [...] 21 U/L 6-55 347) Specimen slightly ictericPROTHROMBIN [id number] 15:00:00 Test Item Value Reference Range Interpretation [...] mechanical heart valves.CBC W/PLT COUNT & AUTO [id number] 14:53:00 Test Item Value Reference Range Interpretation [...] code = 2801) ALPHA FETOPROTEIN (AFP), TUMOR [id number] 14:10:00 Test Item Value Reference Range Interpretation Comments ALPHA-FETOPROTEIN (BEAKER) (test 2.7 ng/mL <10.0 code = 1094) BASIC METABOLIC [id number] 13:52:00 Test Item Value Reference Range Interpretation [...] DIALYSIS PATIEN TS. Specimen slightly ictericHEPATIC FUNCTION [id number] 13:52:00 Test Item Value Reference Range Interpretation [...] 24 U/L 6-55 347) Specimen slightly ictericPROTHROMBIN TIME/[id number] 13:49:00 Test Item Value Reference Range Interpretation [...] mechanical heart valves.CBC W/PLT COUNT & AUTO [id number] 13:35:00 Test Item Value Reference Range Interpretation [...] (test code = 2801) POCT HEMOGLOBIN A1C [id number] 21:30:00 Test Item Value Reference Range Interpretation Comments POCT HBA1C (test code = 4548-4) 7.4 % 4-6 A Lab Interpretation (test code = Abnormal 65915-1) [facility] [id number] 21:30:00 Test Item Value Reference Range Interpretation Comments POCT HBA1C (test code = 4548-4) 7.4 % 4-6 A Lab Interpretation (test code = Abnormal 85421-9) [id number] 14:59:00 Test Item Value Reference Range Interpretation Comments T4 TOTAL (BEAKER) (test code = 895) 5.7 ug/dL 4.9-11.7 [id number] 13:20:00 Test Item Value Reference Range Interpretation Comments T3 TOTAL (BEAKER) (test code = 656) 113 ng/dL 48-159 CYTOMEGALOVIRUS ANTIBODY, [id number] 11:11:00 Test Item Value Reference Range Interpretation Comments CYTOMEGALOVIRUS, IGG (BEAKER) Positive Negative, Equivocal A (test code = 3429) CMV IgG Result Interpretation: </= 0.8 Al Negative 0.9-1.0 Al Equivocal >/=1.1 Al PositiveCYTOMEGALOVIRUS ANTIBODY, [id number] 11:11:00 Test Item Value Reference Range Interpretation Comments CYTOMEGALOVIRUS IGM ANTIBODY Negative Negative, Equivocal (BEAKER) (test code = 3437) CMV IgM Result Interpretation: </= 0.8 Al Negative 0.9-1.0 Al Equivocal >/= 1.1 Al PositiveEBV ANTIBODY, [id number] 11:08:00 Test Item Value Reference Range Interpretation Comments EDENILSON TAVERAS VIRAL CAPSID Positive Negative, Equivocal A ANTIGEN IGG (BEAKER) (test code = 3415) Edenilson Taveras Viral Capsid Antigen IgG Result Interpretation: </= 0.8 Al Negative 0.9-1.0 Al Equivocal >/= 1.1 Al PositiveEBV ANTIBODY, [id number] 11:08:00 Test Item Value Reference Range Interpretation Comments EDENILSON TAVERAS VIRAL CAPSID Negative Negative, Equivocal ANTIGEN IGM (BEAKER) (test code = 3418) Edenilson Taveras Viral Capsid Antigen IgM Result Interpretation: </= 0.8 Al Negative 0.9-1.0 Al Equivocal >/= 1.1 Al PositiveVARICELLA ZOSTER ANTIBODY, [id number] 11:08:00 Test Item Value Reference Range Interpretation Comments VARICELLA ZOSTER IGG (AL) (BEAKER) > (test code = 3197) VARICELLA ZOSTER RESULT INTERPRETATIONS: <=0.8 Al Nonreactive: Presumed non- immune to VZV 0.9-1.0 Al Equivocal >=1.1 Al Reactive: Presumed immune to VZV [id number]-4-[id number] 13:11:00 Test Item Value Reference Range Interpretation Comments ALPHA-1 ANTITRYPSIN (BEAKER) 155.30 mg/dL 90.00-200.00 (test code = 502) HEMOGLOBIN [id number] 13:08:00 Test Item Value Reference Range Interpretation Comments HEMOGLOBIN A1C (BEAKER) (test code = 6.4 % 4.3-6.1 H 368) HEPATITIS A ANTIBODY, [id number] 12:51:00 Test Item Value Reference Range Interpretation Comments HEPATITIS A IGG ANTIBODY (BEAKER) Reactive Nonreactive A (test code = 2797) HEPATITIS C [id number] 12:51:00 Test Item Value Reference Range Interpretation Comments HEPATITIS C ANTIBODY (BEAKER) (test Reactive Nonreactive A code = 367) [id number] 12:48:00 Test Item Value Reference Range Interpretation Comments PROSTATE SPECIFIC ANTIGEN (BEAKER) 0.4 ng/mL 0.0-4.0 (test code = 844) HIV-1 ANTIGEN WITH HIV-1/2 [id number] 12:48:00 Test Item Value Reference Range Interpretation Comments HIV-1 ANTIGEN WITH HIV 1\\T\\2 Nonreactive Nonreactive ANTIBODY (2) (BEAKER) (test code = 2586) VITAMIN D, 62-[id number] 12:46:00 Test Item Value Reference Range Interpretation Comments VITAMIN D 25-OH (BEAKER) (test code 7.7 ng/mL 6.6-49.9 = 2764) Effective 03/08/2017: Reference Range ChangeNew: 6.6-49.9 ng/mL Previous: 13.0- 47.8 ng/mLRecommendedVitamin D Target Range: 30.0-40.0 ng/mLURINALYSIS W/ [id number] 11:55:00 Test Item Value Reference Range Interpretation [...] 1579) 2 /LPF SOURCE(BEAKER) (test code = 1304) CRYPTOCOCCAL [id number] 11:10:00 Test Item Value Reference Range Interpretation Comments CRYPTOCOCCAL ANTIGEN, SERUM Negative Negative, Interference (BEAKER) (test code = 1828) [id number] 10:59:00 Test Item Value Reference Range Interpretation Comments THYROID STIMULATING HORMONE 2.10 uIU/mL 0.35-4.94 (BEAKER) (test code = 772) [id number] 10:59:00 Test Item Value Reference Range Interpretation Comments FERRITIN (BEAKER) (test code = 361) 69 ng/mL 5-275 [id number] 10:51:00 Test Item Value Reference Range Interpretation Comments RPR SCREEN (BEAKER) (test code = Nonreactive Nonreactive 420) [id number] 10:49:00 Test Item Value Reference Range Interpretation Comments TRANSFERRIN (BEAKER) (test code = 197 mg/dL 174-382 541) Specimen slightly [id number] 10:45:00 Test Item Value Reference Range Interpretation Comments MAGNESIUM (BEAKER) (test code = 1.5 mg/dL 1.6-2.6 L 627) [id number] 10:45:00 Test Item Value Reference Range Interpretation Comments PHOSPHORUS (BEAKER) (test code = 3.6 mg/dL 2.3-4.7 604) URIC [id number] 10:45:00 Test Item Value Reference Range Interpretation Comments URIC ACID (BEAKER) (test code = 4.8 mg/dL 2.6-7.2 773) Specimen slightly ictericCOMPREHENSIVE METABOLIC [id number] 10:45:00 Test Item Value Reference Range Interpretation [...] FOR DIALYSIS PATIEN TS. Specimen slightly ictericLIPID [id number] 10:45:00 Test Item Value Reference Range Interpretation Comments TRIGLYCERIDES (BEAKER) (test code = 89 mg/dL 540) CHOLESTEROL (BEAKER) (test code = 104 mg/dL 631) HDL CHOLESTEROL (BEAKER) (test code 29 mg/dL = 976) LDL CHOLESTEROL CALCULATED (BEAKER) 57 mg/dL (test code = 633) Triglyceride Reference Range: Low Risk <150 Borderline 150-199 High Risk 200- 499 Very High Risk >=500Cholesterol Reference Range: Low Risk <200 Borderline 200-239 High Risk >240HDL Cholesterol Reference Range: Low Risk >=60 High Risk <40LDL Cholesterol Reference Range: Optimal <100 Near Optimal 100-129 Borderline 130-159 High 160-189 Very High >=190 Specimen slightly ictericBILIRUBIN, [id number] 10:45:00 Test Item Value Reference Range Interpretation Comments BILIRUBIN DIRECT (BEAKER) (test 1.6 mg/dL 0.1-0.5 H code = 706) GAMMA GLUTAMYL TRANSFERASE (GGT)2018-12-20 10:45:00 Test Item Value Reference Range Interpretation Comments GAMMA GLUTAMYL TRANSFERASE (BEAKER) 33 U/L 9-64 (test code = 364) Specimen slightly [id number] 10:42:00 Test Item Value Reference Range Interpretation Comments PARTIAL THROMBOPLASTIN TIME 37.9 seconds 22.5-36.0 H (BEAKER) (test code = 760) PROTHROMBIN TIME/[id number] 10:36:00 Test Item Value Reference Range Interpretation [...] is 2.5-3.5 for patients wiht mechanical heart valves.[id number] 10:36:00 Test Item Value Reference Range Interpretation Comments ETHANOL (BEAKER) (test code = 400) < mg/dL <=10 [id number] 10:36:00 Test Item Value Reference Range Interpretation Comments FIBRINOGEN LEVEL (BEAKER) (test 207 mg/dl 225-434 L code = 658) BLOOD GAS, [id number] 10:35:00 Test Item Value Reference Range Interpretation [...] 21.0 % CBC W/PLT COUNT & AUTO [id number] 10:25:00 Test Item Value Reference Range Interpretation [...] PERCENT (BEAKER) (test code = 2801) CALCIUM, [id number] 10:20:00 Test Item Value Reference Range Interpretation Comments CALCIUM IONIZED (BEAKER) (test 1.05 mmol/L 1.12-1.27 L code = 698) PH, BLOOD (BEAKER) (test code = 7.41 1810) RAD, MANDIBLE, MIN 4 [id number] 16:56:00REFERRING : ANIL SALVADOR Reason for Exam:->pretransplant liver evaluationFINAL REPORT TECHNIQUE: Minimum four views of the mandible. INDICATION: pretransplant liver evaluation. COMPARISON: None. FINDINGS:No fracture or dislocation.No periapical lucencies.Caries of a maxillary molar, side indeterminate.Mild degenerative disc changes at C4-C5, C5-C6, andC6-C7. IMPRESSION: No periapical lucency. Caries of a maxillary molar, side indeterminate. Signed: Tawanda Alvarez MDReport Verified Date/Time: 12/19/2018 16:56:31 Reading Location: [address] Radiology Reading Room RAD, CHEST, 2 [id number] 15:51:00REFERRING : ANIL SALVADOR Reason for Exam:- >pretransplant liver evaluationFINAL [...] MDReport Verified Date/Time: 12/19/2018 15:51:17 Reading Location: [facility] Mammo Reading Room MR, ABDOMEN, [id number] 14:51:00REFERRING CARO VEGAINAL REPORT TECHNIQUE: MRI of the abdomen [...] and large esophageal varices. Signed: Tawanda Alvarez [facility] Verified Date/Time: 12/19/2018 14:51:24 Reading Location: [address] Radiology Reading Room [facility] 2018-12-06 11:12:00 Test Item Value Reference Range Interpretation Comments ETHANOL (BEAKER) (test code = 400) < mg/dL <=10 BASIC METABOLIC [id number] 10:56:00 Test Item Value Reference Range Interpretation [...] DIALYSIS PATIEN TS. Specimen moderately ictericHEPATIC FUNCTION [id number] 10:56:00 Test Item Value Reference Range Interpretation [...] 27 U/L 6-55 347) Specimen moderately ictericPROTHROMBIN TIME/[id number] 10:40:00 Test Item Value Reference Range Interpretation [...] mechanical heart valves.CBC W/PLT COUNT & AUTO [id number] 10:38:00 Test Item Value Reference Range Interpretation [...] PERCENT (BEAKER) (test code = 2801) BLOOD [id number] 08:00:00 Test Item Value Reference Range Interpretation Comments CULTURE (BEAKER) (test No growth in 5 days code = 1095) BLOOD [id number] 08:00:00 Test Item Value Reference Range Interpretation Comments CULTURE (BEAKER) (test No growth in 5 days code = 1095) BODY FLUID CULTURE + GRAM [id number] 12:20:00 Test Item Value Reference Range Interpretation Comments CULTURE (BEAKER) (test code No growth = 1095) GRAM STAIN RESULT (BEAKER) 1+ WBCs (test code = 1123) GRAM STAIN RESULT (BEAKER) No organisms seen (test code = 20223) HEPATITIS C PCR, [id number] 08:32:00 Test Item Value Reference Range Interpretation Comments HCV RESULT COMPONENT HCV RNA not detected HCV RNA not detected (BEAKER) (test code = 2699) This test uses a Real-Time Polymerase Chain Reaction (RT-PCR) methodology and was performed using K[employer] Ampliprep/KHOA TaqMan HCV test kit version 2.0 ([employer]).Reportable range for this assay is 15 - 100,000,000 IU per mL (1.18 - 8.00 Log IU/mL).POCT-GLUCOSE [id number] 08:09:00 Test Item Value Reference Range Interpretation Comments POC-GLUCOSE METER 117 mg/dL 70-110 H TESTED AT [facility] [address] ([facility]) (test code = NICOLE [place] 1538) [address] CALCIUM, [id number] 05:54:00 Test Item Value Reference Range Interpretation Comments CALCIUM IONIZED (BEAKER) (test 1.01 mmol/L 1.12-1.27 L code = 698) PH, BLOOD (BEAKER) (test code = 7.45 1810) COMPREHENSIVE METABOLIC [id number] 05:07:00 Test Item Value Reference Range Interpretation [...] APPLICABLE FOR DIALYSIS PATIEN TS. Specimen slightly [id number] 05:06:00 Test Item Value Reference Range Interpretation Comments PHOSPHORUS (BEAKER) (test code = 3.3 mg/dL 2.3-4.7 604) [id number] 05:06:00 Test Item Value Reference Range Interpretation Comments MAGNESIUM (BEAKER) (test code = 1.5 mg/dL 1.6-2.6 L 627) CBC W/PLT COUNT & AUTO [id number] 04:43:00 Test Item Value Reference Range Interpretation [...] PERCENT (BEAKER) (test code = 2801) POCT-GLUCOSE [id number] 21:35:00 Test Item Value Reference Range Interpretation Comments POC-GLUCOSE METER 154 mg/dL 70-110 H TESTED AT [facility] [address] ([facility]) ([facility] = [facility] [place] [facility] 1538) [address] POCT-GLUCOSE [id number] 17:21:00 Test Item Value Reference Range Interpretation Comments POC-GLUCOSE METER 138 mg/dL 70-110 H TESTED AT [facility] [address] ([facility]) (test code = [place] 1538) [address] POCT-GLUCOSE [id number] 13:27:00 Test Item Value Reference Range Interpretation Comments POC-GLUCOSE METER 166 mg/dL 70-110 H TESTED AT [facility] [address] (BEAKER) (test code = NICOLE [place] 1538) [address] (CELLAVISION MANUAL DIFF)2018-10-30 12:00:00 Test Item Value [...] = 3438) Received comment: User comments: Slide comments:CBC W/PLT COUNT & AUTO [id number] 12:00:00 Test Item Value Reference Range Interpretation [...] /100 WBC 0-0 (test code = 413) POCT-GLUCOSE [id number] 11:52:00 Test Item Value Reference Range Interpretation Comments POC-GLUCOSE METER 180 mg/dL 70-110 H TESTED AT [place] [address] ([facility]) (test code = NICOLE [place] [facility] 1538) [address] POCT-GLUCOSE [id number] 08:09:00 Test Item Value Reference Range Interpretation Comments POC-GLUCOSE METER 115 mg/dL 70-110 H TESTED AT [place] [address] ([facility]) (test code = NICOLE [place] [facility] 1538) [address] COMPREHENSIVE METABOLIC [id number] 05:59:00 Test Item Value Reference Range Interpretation [...] APPLICABLE FOR DIALYSIS PATIEN TS. Specimen slightly [id number] 05:57:00 Test Item Value Reference Range Interpretation Comments MAGNESIUM (BEAKER) (test code = 1.6 mg/dL 1.6-2.6 627) POCT-GLUCOSE [id number] 22:30:00 Test Item Value Reference Range Interpretation Comments POC-GLUCOSE METER 186 mg/dL 70-110 H TESTED AT [facility] [address] ([facility]) (test code = NICOLE AL[place] 1538) [address] POCT-GLUCOSE [id number] 18:33:00 Test Item Value Reference Range Interpretation Comments POC-GLUCOSE METER 117 mg/dL 70-110 H TESTED AT [facility] [address] ([facility]) (test code = NICOLE [facility] 1538) [address] U/S, [id number] 17:34:00REFERRING : ANIL SALVADOR Please give 25g albumin if [...] 2% lidocaine anesthesia was administered. A 5 Monegasque catheter was advanced into the peritoneal cavityand 1300 cc of addison fluid was removed. The catheter was removed without immediate complication. Samples left with interstitial sent to the lab for analysis. IMPRESSION:Uncomplicated ultrasound-guided paracentesis with 1300 cc fluid removed. Signed: Mauricio Cullen MDReport Verified Date/Time: 10/29/2018 17:34:00 Reading Location: [address] Ultrasound Reading Room VANCOMYCIN LEVEL, [id number] 17:22:00 Test Item Value Reference Range Interpretation Comments VANCOMYCIN TROUGH (BEAKER) (test 7.3 ug/mL 10.0-20.0 L code = 522) CBC W/PLT COUNT & AUTO [id number] 15:00:00 Test Item Value Reference Range Interpretation [...] = 2801) BODY FLUID CELL COUNT WITH [id number] 13:45:00 Test Item Value Reference Range Interpretation [...] FLUID (BEAKER) EDTA Tube (test code = 7423) RESPIRATORY PANEL [id number] 12:27:00 Test Item Value Reference Range Interpretation [...] decisions. This sample was tested at the [facility] using the CahootifyArray Respiratory Panel. It is FDA cleared and has been verified and approved by the [facility] for clinical use on nasopharyngeal swab specimens.The performance of the FilmArrayRP has not been established in individuals who received influenza vaccine. Recent administration of a nasal influenza vaccine may cause false positive results for Influenza A and/orInfluenza B.POCT-GLUCOSE [id number] 12:16:00 Test Item Value Reference Range Interpretation Comments POC-GLUCOSE METER 196 mg/dL 70-110 H TESTED AT [facility] [address] (BEAKER) (test code = NICOLE [place] 1538) [address] RESPIRATORY PANEL [id number] 10:59:00 Test Item Value Reference Range Interpretation [...] decisions. This sample was tested at the [facility] using the CahootifyArray Respiratory Panel. It is FDA cleared and has been verified and approved by the [facility] for clinical use on nasopharyngeal swab specimens.The performance of the FilmArrayRP has not been established in individuals who received influenza vaccine. Recent administration of a nasal influenza vaccine may cause false positive results for Influenza A and/orInfluenza B.POCT-GLUCOSE [id number] 08:15:00 Test Item Value Reference Range Interpretation Comments POC-GLUCOSE METER 184 mg/dL 70-110 H TESTED AT [facility] [address] ([facility]) (test code = NICOLE AL[place] 1538) [address] CBC W/PLT COUNT & AUTO [id number] 07:49:00 Test Item Value Reference Range Interpretation Comments WHITE BLOOD CELL COUNT (AKER) 7.2 K/ L 3.5-10.5 (test code = 775) RED BLOOD CELL COUNT (AKER) 2.66 M/ L 4.63-6.08 L (test code = 761) HEMOGLOBIN (BEAKER) (test code = 8.9 GM/DL 13.7-17.5 L 410) HEMATOCRIT ([facility]) (test code = 27.2 % 40.1-51.0 L 411) MEAN CORPUSCULAR VOLUME ([facility]) 102.3 fL 79.0-92.2 H (test [...] APPLICABLE FOR DIALYSIS PATIEN TS. Specimen moderately [id number] 04:31:00 Test Item Value Reference Range Interpretation Comments MAGNESIUM (BEAKER) (test code = 1.9 mg/dL 1.6-2.6 627) LACTIC ACID, [id number] 04:18:00 Test Item Value Reference Range Interpretation Comments LACTATE BLOOD VENOUS (2) (BEAKER) 1.3 mmol/L 0.5-2.2 (test code = 2872) Specimen moderately ictericPOCT-GLUCOSE [id number] 18:00:00 Test Item Value Reference Range Interpretation Comments POC-GLUCOSE METER 121 mg/dL 70-110 H TESTED AT [facility] [address] ([facility]) (test code = NICOLE [place] 1538) [address] [id number] 12:39:00 Test Item Value Reference Range Interpretation Comments PROCALCITONIN ([facility]) (test code 4.50 ng/mL <0.05 H = 3036) SEPSIS RISK (ng/mL)Low: 0.05-0.50Intermediate: 0.51-2.00High: >=2.01POCT- GLUCOSE [id number] 12:20:00 Test Item Value Reference Range Interpretation Comments POC-GLUCOSE METER 148 mg/dL 70-110 H TESTED AT [facility] [address] ([facility]) (test code = NICOLE [place] [facility] 1538) [address] LEGIONELLA ANTIGEN, [id number] 12:13:00 Test Item Value Reference Range Interpretation Comments L. PNEUMOPHILA Negative - see Negative fo r L. SEROGP 1 UR AG comment pneumophila ([facility]) (test code serogrou p 1 antigen, = 1156) suggesting no r ecent or current infe ction with this serog roup. Legionellosis c annot be ruled out si nce other serogroup s and species may cau se disease. STREP PNEUMONIAE [id number] 12:13:00 Test Item Value Reference Range Interpretation Comments STREP PNEUMONIAE Presumptive negative Presumptive negative ANTIGEN (Runscope[employer]ER) for pneumococcal for pneumococcal (test code = 1615) pneumonia - see pneumonia - see comment commen Presumptive negative for pneumococcal pneumonia, suggesting no current or recent pneumococcal infection. Infection due to S. pneumoniae cannot be ruled out since the antigen present in the sample may be below the detection limit of the test. RAPID INFLUENZA A&B [id number] 12:11:00 Test Item Value Reference Range Interpretation Comments RAPID INFLUENZA A AG (BEAKER) Negative Negative, Inconclusive (test code = 1622) RAPID INFLUENZA B AG (BEAKER) Negative Negative, Inconclusive (test code = 1623) LACTIC ACID, [id number] 10:51:00 Test Item Value Reference Range Interpretation Comments LACTATE BLOOD VENOUS (2) (BEAKER) 3.0 mmol/L 0.5-2.2 H (test code = 2872) Specimen moderately ictericU/S, ABDOMINAL, [id number] 07:19:00REFERRING : ANIL SALVADOR Please perform with [...] MDReport Verified Date/Time: 10/28/2018 07:19:25 Reading Location: [facility] C013T Transitional Reading Room RAPID DRUG SCREEN, [id number] 07:07:00 Test Item Value Reference Range Interpretation [...] situations. Chain of custody not maintained. Some gnvq-ubg-seimaqc medications, as well as adulterants, may cause inaccurate results. Clinical correlation should be applied. A more comprehensive drug screen or confirmation of a detected drug may be performed upon request.CT, BRAIN, WITHOUT [id number] 06:42:00REFERRING MD: ANIL FRANCISCO REPORT CT, BRAIN, [...] Verified Date/Time: 10/28/2018 06:42:47 VITAMIN B12 AND [id number] 06:21:00 Test Item Value Reference Range Interpretation Comments VITAMIN B12 (BEAKER) (test code = 719 pg/mL 213-816 774) FOLATE (BEAKER) (test code = 362) 13.7 ng/mL >=7.0 TROPONIN [id number] 06:05:00 Test Item Value Reference Range Interpretation [...] H (test code = 2590) COMPREHENSIVE METABOLIC [id number] 05:44:00 Test Item Value Reference Range Interpretation [...] APPLICABLE FOR DIALYSIS PATIEN TS. Specimen moderately [id number] 05:38:00 Test Item Value Reference Range Interpretation Comments MAGNESIUM (BEAKER) (test code = 2.3 mg/dL 1.6-2.6 627) LACTIC ACID, [id number] 05:32:00 Test Item Value Reference Range Interpretation Comments LACTATE BLOOD VENOUS 4.1 mmol/L 0.5-2.2 H Specime n slightly (2) (BEAKER) (test hemolyzed code = 5847) Specimen moderately ictericTROPONIN [id number] 02:28:00 Test Item Value Reference Range Interpretation [...] disease, and persistent tachyarrhythmia.RAD, ABDOMEN/KUB, 1 VIEW [id number] 02:04:00REFERRING MD: ANIL SALVADOR Reason for exam:->NG [...] [place] MDReport Verified Date/Time: 10/28/2018 02:04:20 HROMBIN TIME/[id number] 01:58:00 Test Item Value Reference Range Interpretation [...] mechanical heart valves.CBC W/PLT COUNT & AUTO [id number] 01:45:00 Test Item Value Reference Range Interpretation [...] User comments: Slide comments:URINALYSIS W/ REFLEX URINE [id number] 01:36:00 Test Item Value Reference Range Interpretation [...] SOURCE(BEAKER) (test code = 2795) COMPREHENSIVE METABOLIC [id number] 01:16:00 Test Item Value Reference Range Interpretation [...] APPLICABLE FOR DIALYSIS PATIEN TS. Specimen moderately [id number] 01:15:00 Test Item Value Reference Range Interpretation Comments AMMONIA (BEAKER) (test code = 348) 69 mol/L 18-72 LACTIC ACID, [id number] 01:08:00 Test Item Value Reference Range Interpretation Comments LACTATE BLOOD VENOUS (2) (BEAKER) 3.2 mmol/L 0.5-2.2 H (test code = 2872) Specimen moderately [id number] 01:08:00 Test Item Value Reference Range Interpretation Comments MAGNESIUM (BEAKER) (test code = 1.1 mg/dL 1.6-2.6 L 627) RAD, CHEST, 1 VIEW, NON [id number] 00:52:00REFERRING MD: ANIL SALVADOR Reason for exam:->sepsisShould [...] MDReport Verified Date/Time: 10/28/2018 00:52:42 Reading Location: [address] Reading Room ACTIN (SMOOTH MUSCLE) ANTIBODY, [id number] 08:28:00 Test Item Value Reference Range Interpretation Comments SCAN RESULT (test code = 2903108) [id number] 08:27:00 Test Item Value Reference Range Interpretation Comments SCAN RESULT (test code = 0672270) NILS TITER AND [id number] 09:55:00 Test Item Value Reference Range Interpretation Comments NILS TITER (BEAKER) (test code = :160 1541) NILS PATTERN (BEAKER) (test code = Speckled 1781) ANTI-NUCLEAR ANTIBODY (NILS)2018-10-05 09:54:00 Test Item Value Reference Range Interpretation Comments ANTI-NUCLEAR ANTIBODY (NILS) (BEAKER) Positive Negative A (test code = 418) Test performed by IFA method.[id number] 10:54:00 Test Item Value Reference Range Interpretation Comments FERRITIN (BEAKER) (test code = 361) 218 ng/mL 5-275 HEPATITIS A ANTIBODY, [id number] 10:18:00 Test Item Value Reference Range Interpretation Comments HEPATITIS A IGG ANTIBODY (BEAKER) Reactive Nonreactive A (test code = 2797) ALPHA FETOPROTEIN (AFP), TUMOR [id number] 10:14:00 Test Item Value Reference Range Interpretation Comments ALPHA-FETOPROTEIN (BEAKER) (test 3.5 ng/mL <10.0 code = 1094) HEPATITIS A ANTIBODY, [id number] 10:14:00 Test Item Value Reference Range Interpretation Comments HEPATITIS A IGM ANTIBODY (BEAKER) Nonreactive Nonreactive (test code = 498) HEPATITIS B CORE ANTIBODY, [id number] 10:14:00 Test Item Value Reference Range Interpretation Comments HEPATITIS B CORE TOTAL ANTIBODY Nonreactive Nonreactive (BEAKER) (test code = 497) HEPATITIS B SURFACE [id number] 09:42:00 Test Item Value Reference Range Interpretation Comments HEPATITIS B SURFACE ANTIBODY < mIU/mL <8.0 (BEAKER) (test code = 647) HEPATITIS B SURFACE [id number] 09:36:00 Test Item Value Reference Range Interpretation [...] 41 % 20-55 (test code = 2590) [id number] 09:14:00 Test Item Value Reference Range Interpretation Comments ALPHA-1 ANTITRYPSIN (BEAKER) 159.30 mg/dL 90.00-200.00 (test code = 502) COMPREHENSIVE METABOLIC [id number] 09:10:00 Test Item Value Reference Range Interpretation [...] FOR DIALYSIS PATIEN TS. Specimen slightly ictericBILIRUBIN, [id number] 09:10:00 Test Item Value Reference Range Interpretation Comments BILIRUBIN DIRECT (BEAKER) (test 1.4 mg/dL 0.1-0.5 H code = 706) PROTHROMBIN [id number] 08:38:00 Test Item Value Reference Range Interpretation [...] mechanical heart valves.CBC W/PLT COUNT & AUTO [id number] 08:35:00 Test Item Value Reference Range Interpretation [...] % 0-1 PERCENT (BEAKER) (test code = 0788)"
[2022-02-07] MEDS ORDERED: NA CHLORIDE 0.9% 500 ML ONE (11:49)
[2022-02-07] MEDS ORDERED: MECLIZINE HCL 12.5 MG TAB ONE (11:49)
[2022-02-07 11:52] LABS: MPV 8.9 fL (7.6-11.3)
[2022-02-07 11:57] LABS: Absolute Lymphocytes (CBC) 1.7 K/uL (0.7-4.9); Hematocrit 30.5 % (39.6-49.0); Lymphocytes % 31.5 % (15.3-44.8); MCV 72.5 fL (80-100)
[2022-02-07 11:58] LABS: Protime INR 1.38
[2022-02-07 12:16] LABS: Urine Blood Trace-intact (Negative); Urine Glucose Negative (Negative); Urine Protein Negative (Negative)
[2022-02-07 12:26] LABS: Albumin 2.5 g/dL (3.4-5.0); Bilirubin Direct 0.7 mg/dL (0-0.2); Bilirubin Total 1.6 mg/dL (0.2-1.0); Magnesium 1.8 mg/dL (1.8-2.4); Potassium 4.1 mmol/L (3.5-5.1); Protein, Total 6.8 g/dL (6.4-8.2)
[2022-02-07 12:29] LABS: Troponin High Sensitivity 155.2 pg/mL (<58.9); White Blood Cell Scan OK (OK)
[2022-02-07 12:30] LABS: Anisocytosis 3+; Blood Morphology Comment NOTED (NOT SEEN); Burr Cells 1+; Ovalocytes 2+; Platelet Estimate DECR; Platelets, Giant 1+; Poikilocytosis 2+
--- NOTE | 2022-02-07 12:35 | RAD REPORT ---
EXAM DESCRIPTION: CT - Head Brain Wo Cont - 02/07/2022 12:04 pm CLINICAL HISTORY: dizzy Headache, drowsiness, dizziness COMPARISON: Ct Stroke Brain Wo Cont dated 06/21/2021; Head Brain Wo Cont dated 03/29/2021 TECHNIQUE: All CT scans are performed using dose optimization technique as appropriate and may inclu de automated exposure control or mA/KV adjustment according to patient size. FINDINGS: No intracranial hemorrhage, hydrocephalus or extra-axial fluid collection.Mild brain atrop hy.No areas of brain edema or evidence of midline shift. The paranasal sinuses and mastoids are clear. The calvarium is intact. IMPRESSION: No acute intracranial abnormality.
--- NOTE | 2022-02-07 12:50 | RAD REPORT ---
EXAM DESCRIPTION: Shaina Single View02/07/2022 12:16 pm CLINICAL HISTORY: Cough COMPARISON: May 2021 FINDINGS: The lungs appear clear of acute infiltrate. The heart is normal size IMPRESSION: No acute abnormalities displayed
[2022-02-07] MEDS ORDERED: LACTULOSE 20 GM/30 ML UCUP ONE (13:01)
--- NOTE | 2022-02-07 13:34 | RAD REPORT ---
EXAM DESCRIPTION: - CP - 02/07/2022 12:08 pm CLINICAL HISTORY: DIZZINESS Headache, drowsiness COMPARISON: Soft Tissue Neck W/Contr dated 07/31/2021 TECHNIQUE: Real-time sonographic evaluation of both carotid systems was performed. Doppler interroga tion was performed with waveform tracing bilaterally. FINDINGS: Normal high resistance waveforms are noted in both external carotid arteries. The common c arotid arteries and internal carotid arteries show normal low resistance waveforms. Small hard plaque is seen proximal left ICA. Peak systolic and end diastolic velocity values and the ICA/CCA ratios are in the non-hemodynamically significant range. Antegrade flow seen in both vertebral arteries. IMPRESSION: Small hard plaque is seen proximal left ICA. No evidence of a hemodynamically significant stenosis.
--- NOTE | 2022-02-07 14:02 | ER ---
Nurse's Notes [facility] Name: Tonny Cardona Age: 66 yrs Sex: Male : 1955 Arrival Date: 02/07/2022 Time: 10:47 Bed 6 Private MD: Diagnosis: Weakness;Other cirrhosis of liver;Encephalopathy, unspecified-Hepatic;Anemia, unspecified;Abnormal coagulation profile;Abnormal level of enzymes in specimens from respiratory organs and thorax-elevated Troponion Presentation: 02/07 11:16 Chief complaint: Patient's son or daughter states: "he is having on and off confusion. jd3 he has liver cirrhosis and yesterday he was walking kind of sideways looking like he was dizzy. he also fell and hurt his right elbow, but he can't remember when that was. his girlfriend is also preparing his medications and I was concerned because those medicines are outdated. he recently got admitted her for that and had fluid drained off of his stomach.". Coronavirus screen: At this time, the client does not indicate any symptoms associated with coronavirus-19. Ebola Screen: No symptoms or risks identified at this time. Initial Sepsis Screen: Does the patient meet any 2 criteria? No. Patient's initial sepsis screen is negative. Does the patient have a suspected source of infection? No. Patient's initial sepsis screen is negative. Risk Assessment: Do you want to hurt yourself or someone else? Patient reports no desire to harm self or others. Onset of symptoms was April 08, 2022. 11:16 Method Of Arrival: Ambulatory j 11:16 Acuity: FAIZA 2 jd3 Triage Assessment: 12:15 General: Appears in no apparent distress. Behavior is calm, cooperative. Pain: Denies jg9 pain. Historical: - Allergies: 11:19 Ativan; jd3 - Home Meds: 11:19 carvedilol 3.125 mg [Active]; Furosemide Oral 40 mg [Active]; Lisinopril Oral 20 mg jd3 [Active]; Metformin Oral 500 mg [Active]; pantoprazole 40 mg [Active]; Spironolactone Oral 25 mg [Active]; Trazodone Oral 50 mg [Active]; - PMHx: 11:19 ADD/ADHD; Cirrhosis; Diabetes - NIDDM; Hypertension; psoriasis; jd3 - PSHx: 11:19 hernia repair; jd3 - Immunization history:: Adult Immunizations up to date, Client reports receiving the 2nd dose of the Covid vaccine. - Social history:: Smoking status: Patient/guardian denies using tobacco, the patient reports quitting approximately 3 years ago. - Family history:: not pertinent. Screenin:59 Abuse screen: Denies threats or abuse. Denies injuries from another. Nutritional jg9 screening: No deficits noted. Tuberculosis screening: No symptoms or risk factors identified. Fall Risk Fall in past 12 months (25 points). Assessment: 13:00 Reassessment: Patient appears in no apparent distress at this time. No changes from jg9 previously documented assessment. Patient and/or family updated on plan of care and expected duration. Pain level reassessed. Patient is alert, oriented x 3, equal unlabored respirations, skin warm/dry/pink. 14:00 Reassessment: Patient appears in no apparent distress at this time. No changes from jg9 previously documented assessment. Patient and/or family updated on plan of care and expected duration. Pain level reassessed. Patient is alert, oriented x 3, equal unlabored respirations, skin warm/dry/pink. 15:00 Reassessment: Patient appears in no apparent distress at this time. No changes from jg9 previously documented assessment. Patient and/or family updated on plan of care and expected duration. Pain level reassessed. Patient is alert, oriented x 3, equal unlabored respirations, skin warm/dry/pink. 16:00 Reassessment: Patient appears in no apparent distress at this time. No changes from jg9 previously documented assessment. Patient and/or family updated on plan of care and expected duration. Pain level reassessed. Patient is alert, oriented x 3, equal unlabored respirations, skin warm/dry/pink. 17:00 Reassessment: Patient and/or family updated on plan of care and expected duration. Pain jg9 level reassessed. Patient is alert, oriented x 3, equal unlabored respirations, skin warm/dry/pink. Patient more alert and oriented-multiple bowel movements noted after lactulose Patient states feeling better. Patient states symptoms have improved. Vital Signs: 11:23 BP 115 / 64; Pulse 70; Resp 18 S; Temp 98.0(O); Pulse Ox 98% on R/A; Weight 106.59 kg jd3 (R); Height 5 ft. 6 in. (167.64 cm) (R); Pain 0/10; 12:45 BP 120 / 64; Pulse 68; Resp 18 S; Pulse Ox 100% on R/A; jg9 13:00 BP 121 / 73; Pulse 68; Resp 19 S; Pulse Ox 100% on R/A; jg9 13:30 BP 117 / 90; Pulse 73; Resp 14 S; Pulse Ox 100% ; jg9 14:00 BP 127 / 76; Pulse 70; Resp 20 S; Pulse Ox 100% on R/A; jg9 14:30 BP 118 / 65; Pulse 65; Resp 21 S; Pulse Ox 100% on R/A; jg9 15:00 BP 137 / 77; Pulse 71; Resp 16 S; Pulse Ox 99% ; jg9 15:15 BP 126 / 61; Pulse 68; Resp 20 S; Pulse Ox 100% on R/A; jg9 16:00 BP 130 / 78; Pulse 20; Resp 20 S; Pulse Ox 97% on R/A; jg9 16:30 BP 124 / 78; Pulse 76; Resp 20 S; Pulse Ox 99% on R/A; jg9 17:00 BP 127 / 76; Pulse 70; Resp 21; Pulse Ox 98% on R/A; jg9 11:23 Body Mass Index 37.93 (106.59 kg, 167.64 cm) jd3 NIH Stroke Scale Scores: 13:52 NIHSS Score: 0 cale ED Course: 10:47 Patient arrived in ED. rg4 11:10 Inserted saline lock: 20 gauge in right antecubital area, using aseptic technique. jg9 Blood collected. 11:18 Milan Coronado MD is Attending Physician. cale 11:19 Triage completed. jd3 11:21 EKG done, by ED staff, reviewed by Milan Coronado MD. em1 11:23 Arm band placed on. EKG completed in triage. Results shown to . jd3 11:30 Sherine Styles, RN is Primary Nurse. jg9 12:06 Head Brain Wo Cont In Process Unspecified. EDMS 12:09 US Carotid Artery Bilateral In Process Unspecified. EDMS 12:18 XRAY Chest (1 view) In Process Unspecified. EDMS 13:00 Patient has correct armband on for positive identification. Bed in low position. Call jg9 light in reach. Side rails up X 1. 13:57 Terrell Faith MD is Hospitalizing Provider. [facility] 14:08 Hospitalizing Provider role handed off by Terrell Faith MD [facility] 14:08 Andrae Renteria is Hospitalizing Provider. [facility] 17:29 No provider procedures requiring assistance completed. jg9 17:30 Patient admitted, IV remains in place. jg9 Administered Medications: 12:15 Drug: NS 0.9% 500 ml Route: IV; Rate: bolus; Site: right antecubital; jg9 14:00 Follow up: IV Status: Completed infusion; IV Intake: 500ml j9 12:30 Drug: Meclizine 50 mg Route: PO; jg9 12:58 Follow up: Response: No adverse reaction j9 12:58 Drug: Lactulose 60 grams Volume: 45 ml; Route: PO; jg9 13:53 Follow up: Response: No adverse reaction j9 14:02 Drug: ProTONIX (pantoprazole) 40 mg Route: IVP; Site: right antecubital; jg9 15:00 Follow up: Response: No adverse reaction j9 Medication: 17:30 VIS not applicable for this client. jg9 Intake: 14:00 IV: 500ml; Total: 500ml. jg9 Outcome: 14:02 Decision to Hospitalize by Provider. cale 17:29 Admitted to Med/surg accompanied by tech, via wheelchair, with chart, Report called to j9 DIANE Lynch 17:29 Condition: stable 17:39 Patient left the ED. jg9 NIH Stroke Scale - NIH Stroke Score Date: 02/07/2022 Time: 13:52 Total Score = 0 1a. Level of Consciousness (LOC) - 0(Alert) 1b. Level of Consciousness (LOC) (Month \\T\\ Age) - 0(Both) 1c. LOC Commands (Open \\T\\ Closes Eyes/Kiln Drawer) - 0(Both) 2. Best Gaze (Lateral Gaze Paresis) - 0(Normal) 3. Visual Field Loss - 0(No visual loss) 4. Facial Palsy - 0(Normal) 5a. Left Arm: Motor (10-second hold) - 0(No drift) 5b. Right Arm: Motor (10-second hold) - 0(No drift) 6a. Left Leg: Motor (5-second hold - always test supine) - 0(No drift) 6b. Right Leg: Motor (5-second hold - always test supine) - 0(No drift) 7. Limb Ataxia (finger/nose \\T\\ heel/stewart - test with eyes open) - 0(Absent) 8. Sensory Loss (pinprick arms/legs/face) - 0(Normal) 9. Best Language: Aphasia (description/naming/reading) - 0(No aphasia) 10. Dysarthria (speech clarity - read or repeat words) - 0(Normal) 11. Extinction and Inattention (visual/tactile/auditory/spatial/personal) - 0(No abnormality) Initials: cale Signatures: Dispatcher [employer] Milan Beard MD MD cha Martinez, Eric em1 Garcia, Rubi rg4 Davies, Jonathon RN RN jd3 Sherine Styles RN RN jg9 Corrections: (The following items were deleted from the chart) 13:01 12:59 General: Appears jg9 jg9
--- NOTE | 2022-02-07 14:03 | EDPHYS ---
Physician Documentation [facility] Name: Tonny Cardona Age: 66 yrs Sex: Male : 1955 Arrival Date: 02/07/2022 Time: 10:47 Bed 6 Private MD: ED Physician Milan Coronado HPI: 02/07 13:52 This 66 yrs old Male presents to ER via Ambulatory with complaints of cale Dizziness. 13:52 The patient presents with dizziness, generalized weakness. Onset: The symptoms/episode cale began/occurred 1 week(s) ago. Context: occurred at home. Modifying factors: The symptoms are alleviated by lying down, the symptoms are aggravated by changing position. Associated signs and symptoms: The patient has no apparent associated signs or symptoms. Severity of symptoms: At their worst the symptoms were mild in the emergency department the symptoms are unchanged. Patient's baseline: Neuro: alert and fully oriented, alert but confused, Motor: no deficits, Speech: slow. The patient has experienced similar episodes in the past, multiple times. Historical: - Allergies: 11:19 Ativan; jd3 - Home Meds: 11:19 carvedilol 3.125 mg [Active]; Furosemide Oral 40 mg [Active]; Lisinopril Oral 20 mg jd3 [Active]; Metformin Oral 500 mg [Active]; pantoprazole 40 mg [Active]; Spironolactone Oral 25 mg [Active]; Trazodone Oral 50 mg [Active]; - PMHx: 11:19 ADD/ADHD; Cirrhosis; Diabetes - NIDDM; Hypertension; psoriasis; jd3 - PSHx: 11:19 hernia repair; jd3 - Immunization history:: Adult Immunizations up to date, Client reports receiving the 2nd dose of the Covid vaccine. - Social history:: Smoking status: Patient/guardian denies using tobacco, the patient reports quitting approximately 3 years ago. - Family history:: not pertinent. ROS: 13:52 Constitutional: Negative for fever, chills, and weight loss, Eyes: Negative for injury, cale pain, redness, and discharge, ENT: Negative for injury, pain, and discharge, Neck: Negative for injury, pain, and swelling, Cardiovascular: Negative for chest pain, palpitations, and edema, Respiratory: Negative for shortness of breath, cough, wheezing, and pleuritic chest pain, Abdomen/GI: Negative for abdominal pain, nausea, vomiting, diarrhea, and constipation, Back: Negative for injury and pain, : Negative for injury, bleeding, discharge, and swelling, MS/Extremity: Negative for injury and deformity, Skin: Negative for injury, rash, and discoloration, Psych: Negative for depression, anxiety, suicide ideation, homicidal ideation, and hallucinations, Allergy/Immunology: Negative for hives, rash, and allergies, Endocrine: Negative for neck swelling, polydipsia, polyuria, polyphagia, and marked weight changes, Hematologic/Lymphatic: Negative for swollen nodes, abnormal bleeding, and unusual bruising. 13:52 Neuro: Positive for altered mental status, weakness. Exam: 13:52 Constitutional: This is a well developed, well nourished patient who is awake, alert, cale and in no acute distress. Head/Face: Normocephalic, atraumatic. Eyes: Pupils equal round and reactive to light, extra-ocular motions intact. Lids and lashes normal. Conjunctiva and sclera are non-icteric and not injected. Cornea within normal limits. Periorbital areas with no swelling, redness, or edema. ENT: Nares patent. No nasal discharge, no septal abnormalities noted. Tympanic membranes are normal and external auditory canals are clear. Oropharynx with no redness, swelling, or masses, exudates, or evidence of obstruction, uvula midline. Mucous membranes moist. Neck: Trachea midline, no thyromegaly or masses palpated, and no cervical lymphadenopathy. Supple, full range of motion without nuchal rigidity, or vertebral point tenderness. No Meningismus. Chest/axilla: Normal chest wall appearance and motion. Nontender with no deformity. No lesions are appreciated. Cardiovascular: Regular rate and rhythm with a normal S1 and S2. No gallops, murmurs, or rubs. Normal PMI, no JVD. No pulse deficits. Respiratory: Lungs have equal breath sounds bilaterally, clear to auscultation and percussion. No rales, rhonchi or wheezes noted. No increased work of breathing, no retractions or nasal flaring. Abdomen/GI: Soft, non-tender, with normal bowel sounds. No distension or tympany. No guarding or rebound. No evidence of tenderness throughout. Back: No spinal tenderness. No costovertebral tenderness. Full range of motion. Male : Normal genitalia with no discharge or lesions. Skin: Warm, dry with normal turgor. Normal color with no rashes, no lesions, and no evidence of cellulitis. Neuro: Awake and alert, GCS 15, oriented to person, place, time, and situation. Cranial nerves II-XII grossly intact. Motor strength 5/5 in all extremities. Sensory grossly intact. Cerebellar exam normal. Normal gait. Psych: Awake, alert, with orientation to person, place and time. Behavior, mood, and affect are within normal limits. 13:52 Musculoskeletal/extremity: Extremities: all appear grossly normal, with no appreciated pain with palpation, ROM: no acute changes, intact in all extremities, Pulses: Sensation intact. Compartment Syndrome exam of affected extremity: is normal. Weight bearing: able to fully bear weight, DVT Exam: No signs of deep vein thrombosis. no pain, no swelling, no tenderness, negative Homans' sign noted on exam, no appreciated bluish discoloration, no erythema, no increased warmth. 14:04 ECG was reviewed by the Attending Physician. cale Vital Signs: 11:23 BP 115 / 64; Pulse 70; Resp 18 S; Temp 98.0(O); Pulse Ox 98% on R/A; Weight 106.59 kg jd3 (R); Height 5 ft. 6 in. (167.64 cm) (R); Pain 0/10; 12:45 BP 120 / 64; Pulse 68; Resp 18 S; Pulse Ox 100% on R/A; jg9 13:00 BP 121 / 73; Pulse 68; Resp 19 S; Pulse Ox 100% on R/A; jg9 13:30 BP 117 / 90; Pulse 73; Resp 14 S; Pulse Ox 100% ; jg9 14:00 BP 127 / 76; Pulse 70; Resp 20 S; Pulse Ox 100% on R/A; jg9 14:30 BP 118 / 65; Pulse 65; Resp 21 S; Pulse Ox 100% on R/A; jg9 15:00 BP 137 / 77; Pulse 71; Resp 16 S; Pulse Ox 99% ; jg9 15:15 BP 126 / 61; Pulse 68; Resp 20 S; Pulse Ox 100% on R/A; jg9 16:00 BP 130 / 78; Pulse 20; Resp 20 S; Pulse Ox 97% on R/A; g9 16:30 BP 124 / 78; Pulse 76; Resp 20 S; Pulse Ox 99% on R/A; jg9 17:00 BP 127 / 76; Pulse 70; Resp 21; Pulse Ox 98% on R/A; jg9 11:23 Body Mass Index 37.93 (106.59 kg, 167.64 cm) jd3 NIH Stroke Scale Scores: 13:52 NIHSS Score: 0 cale MDM: 11:23 Patient medically screened. cale 13:54 Differential diagnosis: cardiac arrhythmia, CVA, generalized weakness, head injury, cale hypovolemia, idiopathic dizziness, near-syncope, vertigo. Data reviewed: vital signs, nurses notes, EKG, radiologic studies. Data interpreted: space buyer: rate is 68 beats/min, rhythm is regular, Pulse oximetry: on room air is 100 %. Test interpretation: by ED physician or midlevel provider: ECG, plain radiologic studies. Counseling: I had a detailed discussion with the patient and/or guardian regarding: the historical points, exam findings, and any diagnostic results supporting the discharge/admit diagnosis, lab results, radiology results, the need for further work-up and treatment in the hospital. 02/07 11:22 Order name: Basic Metabolic Panel; Complete Time: 12:30 [facility] 02/07 11:22 Order name: CBC with Diff; Complete Time: 13:44 [facility] 02/07 11:22 Order name: LFT's; Complete Time: 12:30 [facility] 02/07 11:22 Order name: Magnesium; Complete Time: 12:30 [facility] 02/07 11:22 Order name: NT PRO-BNP; Complete Time: 12:30 [facility] 02/07 11:22 Order name: PT-INR; Complete Time: 12:30 [facility] 02/07 11:22 Order name: Troponin HS; Complete Time: 12:30 [facility] 02/07 11:22 Order name: XRAY Chest (1 view); Complete Time: 13:44 [facility] 02/07 11:22 Order name: CT Head Brain wo Cont [facility] 02/07 11:31 Order name: AMMONIA; Complete Time: 12:30 j9 02/07 11:33 Order name: Lipase; Complete Time: 13:44 [facility] 02/07 12:04 Order name: CBC Smear Scan; Complete Time: 13:44 EDMS 02/07 12:16 Order name: Urine Dipstick-Ancillary; Complete Time: 12:30 EDMS 02/07 14:20 Order name: SARS RAPID iw 02/07 11:22 Order name: EKG; Complete Time: 11:23 [facility] 02/07 11:22 Order name: Cardiac monitoring; Complete Time: 11:30 [facility] 02/07 11:22 Order name: EKG - Nurse/Tech; Complete Time: 11:26 [facility] 02/07 11:22 Order name: IV Saline Lock; Complete Time: 11:31 [facility] 02/07 11:22 Order name: Labs collected and sent; Complete Time: 11:42 [facility] 02/07 11:22 Order name: O2 Per Protocol; Complete Time: 12:37 [facility] 02/07 11:22 Order name: O2 Sat Monitoring; Complete Time: 11:31 [facility] 02/07 11:22 Order name: Urine Dipstick-Ancillary (obtain specimen); Complete Time: 12:37 [facility] 02/07 11:22 Order name: US Carotid Artery Bilateral; Complete Time: 13:44 [facility] 02/07 11:27 Order name: Head Brain Wo Cont; Complete Time: 13:44 EDMS EC:04 Rate is 71 beats/min. DE interval is normal. QRS interval is normal. QT interval is cale normal. No Q waves. T waves are Normal. No ST changes noted. Clinical impression: NSR w/ Non-specific ST/T Changes and No evidence of ischemia. Interpreted by me. Reviewed by me. Administered Medications: 12:15 Drug: NS 0.9% 500 ml Route: IV; Rate: bolus; Site: right antecubital; jg9 14:00 Follow up: IV Status: Completed infusion; IV Intake: 500ml jg9 12:30 Drug: Meclizine 50 mg Route: PO; jg9 12:58 Follow up: Response: No adverse reaction jg9 12:58 Drug: Lactulose 60 grams Volume: 45 ml; Route: PO; jg9 13:53 Follow up: Response: No adverse reaction jg9 14:02 Drug: ProTONIX (pantoprazole) 40 mg Route: IVP; Site: right antecubital; jg9 15:00 Follow up: Response: No adverse reaction jg9 Disposition Summary: 02/07/22 14:02 Hospitalization Ordered Hospitalization Status: Observation cale Location: Telemetry/MedSurg (observation) cale Condition: Stable cale Problem: new cale Symptoms: have improved cale Bed/Room Type: Standard cale Provider: Andrae Renteria(02/07/22 14:08) cale Room Assignment: 429(02/07/22 16:11) dw Diagnosis - Weakness cale - Other cirrhosis of liver cale - Encephalopathy, unspecified - Hepatic cale - Anemia, unspecified cale - Abnormal coagulation profile cale - Abnormal level of enzymes in specimens from respiratory organs and thorax - cale elevated Troponion Forms: - Medication Reconciliation Form cale - SBAR form cale NIH Stroke Scale - NIH Stroke Score Date: 02/07/2022 Time: 13:52 Total Score = 0 1a. Level of Consciousness (LOC) - 0(Alert) 1b. Level of Consciousness (LOC) (Month \T\ Age) - 0(Both) 1c. LOC Commands (Open \T\ Closes Eyes/Assistant Press Operator) - 0(Both) 2. Best Gaze (Lateral Gaze Paresis) - 0(Normal) 3. Visual Field Loss - 0(No visual loss) 4. Facial Palsy - 0(Normal) 5a. Left Arm: Motor (10-second hold) - 0(No drift) 5b. Right Arm: Motor (10-second hold) - 0(No drift) 6a. Left Leg: Motor (5-second hold - always test supine) - 0(No drift) 6b. Right Leg: Motor (5-second hold - always test supine) - 0(No drift) 7. Limb Ataxia (finger/nose \T\ heel/stewart - test with eyes open) - 0(Absent) 8. Sensory Loss (pinprick arms/legs/face) - 0(Normal) 9. Best Language: Aphasia (description/naming/reading) - 0(No aphasia) 10. Dysarthria (speech clarity - read or repeat words) - 0(Normal) 11. Extinction and Inattention (visual/tactile/auditory/spatial/personal) - 0(No abnormality) Initials: cale Signatures: Dispatcher [employer] Neha Reddy RN RN dw Anderson, Corey, MD MD cha Davies, Jonathon RN RN jd3 Sherine Styles RN RN jg9 Corrections: (The following items were deleted from the chart) 14:08 14:02 Marcell, Terrell cale cale 16:11 14:02 cale dw
[2022-02-07] MEDS ORDERED: PANTOPRAZOLE 40 MG INJ ONE (14:12)
[2022-02-07 15:06] LABS: SARS-CoV-2 Antigen Rapid Res Negative (Negative)
--- NOTE | 2022-02-07 17:20 | P.HP ---
Certification for Inpatient Patient admitted to: Observation With expected LOS: <2 Midnights Practitioner: I am a practitioner with admitting privileges, knowledge of patient current condition, hospital course, and medical plan of care. Services: Services provided to patient in accordance with Admission requirements found in Title 42 Section 412.3 of the Code of Federal Regulations Patient History Date of Service: 02/07/22 Reason for admission: Dizziness History of Present Illness: 66-year-old gentleman with a history of liver cirrhosis and ascites presented to the emergency department with a complaint of generalized weakness and dizziness of 1 week duration. Patient was hospitalized a week ago for liver cirrhosis with ascites and underwent paracentesis. He denied any fever. Blood work in the emergency department shows ammonia level up to 107. Abdomen is distended. Patient patient is hospitalized for further management. Allergies lorazepam [From Ativan] Allergy (Severe, Verified 10/04/21 13:11) Shortness of breath Home Medications: Carvedilol [Coreg] 3.125 mg PO BIDWM 01/11/20 Folic Acid 1 mg PO DAILY 01/11/20 Pantoprazole [Protonix Tab*] 40 mg PO DAILY 01/11/20 Spironolactone 25 mg PO DAILY 01/11/20 Furosemide [Lasix*] 40 mg PO DAILY 09/18/20 Insulin -Regular Human [Novolin -R*] See Protocol SQ ACHS 09/18/20 Trazodone [Desyrel*] 50 mg PO BEDTIME 09/18/20 Fluticasone Propionate [Flovent Diskus] 50 mcg BONNY DAILY 06/21/21 Lisinopril [Zestril] 20 mg PO DAILY 06/21/21 Metformin ER [Glucophage ER*] 500 mg PO BID 06/21/21 hydrOXYzine HCL [Atarax] 50 mg PO BID 06/21/21 Lactulose [Cephulac*] 30 ml PO TID 30 Days #1800 ucup 06/23/21 Rifaximin [Xifaxan] 550 mg PO BID #180 tablet 06/23/21 - Past Medical/Surgical History Diabetic: Yes -: DM II -: HTN -: CHF -: Liver cirrhosis, -: Hyperlipidemia -: Obesity -: GERD -: Gastric varices -: H pylori gastritis -: Hernia repair Psychosocial/ Personal History: Patient has significant other. - Family History Father -: Diabetes Mother -: Liver disease - Social History Alcohol use: No CD- Drugs: No Caffeine use: Yes Review of Systems Other: Except as documented, all other systems reviewed and negative. Physical Examination - Physical Exam General: In no apparent distress, Oriented x3, Other (Lethargic) HEENT: Mucous membr. moist/pink, Sclerae nonicteric Neck: Supple, JVD not distended Respiratory: Clear to auscultation bilaterally, Normal air movement Cardiovascular: No edema, Regular rate/rhythm, Normal S1 S2 Capillary refill: <2 Seconds Gastrointestinal: Normal bowel sounds, Soft and benign, Distended, Ascites Musculoskeletal: No swelling, No tenderness Integumentary: No rashes, No cyanosis Neurological: Normal speech, Normal strength at 5/5 x4 extr, Cranial nerves 3-12 intact Lymphatics: No axilla or inguinal lymphadenopathy - Studies Laboratory Data (last 24 hrs) 02/07/22 11:30: Lipase 208 02/07/22 11:30: PT 15.3 H, INR 1.38 02/07/22 11:30: WBC 5.40 D, Hgb 9.6 L, Hct 30.5 L, Plt Count 87 L D 02/07/22 11:30: Sodium 136, Potassium 4.1, BUN 6 L, Creatinine 0.77, Glucose 197 H, Magnesium 1.8, Total Bilirubin 1.6 H, AST 42 H, ALT 45, Alkaline Phosphatase 218 H Assessment and Plan - Problems (Diagnosis) (1) Ascites Current Visit: Yes Status: Acute (2) Elevated troponin Current Visit: No Status: Acute (3) Hepatic encephalopathy Current Visit: No Status: Acute (4) Alcoholic cirrhosis Current Visit: No Status: Chronic Qualifiers: (5) Diabetes mellitus Onset Date: 05/24/18 Current Visit: No Status: Chronic Qualifiers: Diabetes mellitus type: type 2 Diabetes mellitus terminal clerk insulin use: with terminal clerk use - Plan Place patient under observation on the medical floor. Start treatment for hepatic encephalopathy with lactulose. Start spironolactone IV Lasix US guided paracentesis. Ascitic fluid status. Patient has chronic troponin elevation. Recent echocardiogram shows normal EF. Trend troponin. Restrict free water. - Advance Directives Does patient have a Living Will: No Does patient have a Durable POA for Healthcare: No
[2022-02-07] MEDS ORDERED: ONDANSETRON 4 MG/2 ML VIAL IV PRN (19:18)
[2022-02-07] MEDS ORDERED: MAGNESIUM SULFATE 1 gm IVPB 1 GM/100 ML BAG IV ONE (20:24)
[2022-02-07] MEDS: LACTULOSE 20 GM/30 ML UCUP PO SCH (20:56)
[2022-02-07] MEDS: FUROSEMIDE 40 MG/4 ML VIAL IV SCH (20:56)
[2022-02-08 03:42] LABS: Absolute Lymphocytes (CBC) 1.9 K/uL (0.7-4.9); Hematocrit 29.4 % (39.6-49.0); Lymphocytes % 34.2 % (15.3-44.8); MCV 71.5 fL (80-100); MPV 8.7 fL (7.6-11.3); RBC Red Blood Cell Count 4.12 M/uL (4.33-5.43)
[2022-02-08 04:01] LABS: Albumin 2.3 g/dL (3.4-5.0); Bilirubin Total 1.4 mg/dL (0.2-1.0); Magnesium 1.7 mg/dL (1.8-2.4); Phosphorus 3.5 mg/dL (2.5-4.9); Potassium 3.8 mmol/L (3.5-5.1); Protein, Total 6.5 g/dL (6.4-8.2)
[2022-02-08] MEDS ORDERED: MAGNESIUM SULFATE 1 gm IVPB 1 GM/100 ML BAG IV ONE (04:55)
[2022-02-08] MEDS: LACTULOSE 20 GM/30 ML UCUP PO SCH (08:01)
[2022-02-08] MEDS ORDERED: SPIRONOLACTONE 25 MG TABLET PO SCH (09:00)
[2022-02-08] MEDS: FUROSEMIDE 40 MG/4 ML VIAL IV SCH (09:00)
--- NOTE | 2022-02-08 10:00 | RAD REPORT ---
EXAM DESCRIPTION: US - Abdomen Exam Limited - 02/08/2022 9:33 am CLINICAL HISTORY: Ascites COMPARISON: Abdomen Pelvis W Contrast dated 01/24/2022 FINDINGS: Limited sonographic evaluation was performed using four-quadrant assessment of the periton eal cavity. No measurable quantity of ascites was present to allow for either therapeutic or diagnost ic paracentesis. IMPRESSION: No measurable quantity of ascites to allow for either therapeutic or diagnostic paracent esis.
[2022-02-08 10:18] VITALS: O2SAT 98; BMI 37.9
--- NOTE | 2022-02-08 10:42 | P.DS ---
Admission Date: 02/07/22 Discharge Date: 02/08/22 Disposition: ROUTINE DISCHARGE Discharge Condition: GOOD Reason for Admission: Dizziness Hospital Course: Mateo is a 66-year-old male with decompensated alcoholic cirrhosis who presented to the hospital with generalized weakness and dizziness. Patient had a ammonia level of 107 and was slightly volume overloaded on admission. He was treated for hepatic encephalopathy. Patient did well overnight. Today was my first day seeing the patient. He was ambulating without difficulty and eating. He was lucid and coherent during our conversation. He can be discharged today. An attempt was made to perform a paracentesis. However, he did not have enough fluid pocket for the procedure. Vital Signs/Physical Exam: Temp Pulse Resp BP Pulse Ox 96.9 F 72 18 123/76 99 02/08/22 04:00 02/08/22 04:00 02/08/22 04:00 02/08/22 04:00 02/08/22 04:00 General: Alert, In no apparent distress, Cooperative HEENT: Scleral icterus Respiratory: Clear to auscultation bilaterally, Normal air movement Cardiovascular: No edema, Regular rate/rhythm, Normal S1 S2 Gastrointestinal: Soft and benign, Non-distended Musculoskeletal: No clubbing, No swelling, No contractures Neurological: Normal gait, Normal speech, Cranial nerves 3-12 intact Laboratory Data at Discharge: WBC 5.60 K/uL (4.3-10.9) 02/08/22 03:26 Hgb 9.7 g/dL (13.6-17.9) L 02/08/22 03:26 Hct 29.4 % (39.6-49.0) L 02/08/22 03:26 Plt Count 71 K/uL (152-406) L 02/08/22 03:26 PT 15.3 SECONDS (9.5-12.5) H 02/07/22 11:30 INR 1.38 02/07/22 11:30 Sodium 136 mmol/L (136-145) 02/08/22 03:26 Potassium 3.8 mmol/L (3.5-5.1) 02/08/22 03:26 BUN 6 mg/dL (7-18) L 02/08/22 03:26 Creatinine 0.83 mg/dL (0.55-1.3) 02/08/22 03:26 Glucose 201 mg/dL (74-106) H 02/08/22 03:26 Phosphorus 3.5 mg/dL (2.5-4.9) 02/08/22 03:26 Magnesium 1.7 mg/dL (1.8-2.4) L 02/08/22 03:26 Total Bilirubin 1.4 mg/dL (0.2-1.0) H 02/08/22 03:26 AST 38 U/L (15-37) H 02/08/22 03:26 ALT 41 U/L (12-78) 02/08/22 03:26 Alkaline Phosphatase 186 U/L (45-117) H 02/08/22 03:26 Lipase 208 U/L (73-393) 02/07/22 11:30 Home Medications: Carvedilol [Coreg] 3.125 mg PO BIDWM 01/11/20 Folic Acid 1 mg PO DAILY 01/11/20 Pantoprazole [Protonix Tab*] 40 mg PO DAILY 01/11/20 Insulin -Regular Human [Novolin -R*] See Protocol SQ ACHS 09/18/20 Trazodone [Desyrel*] 50 mg PO BEDTIME 09/18/20 Fluticasone Propionate [Flovent Diskus] 50 mcg BONNY DAILY 06/21/21 Lisinopril [Zestril] 20 mg PO DAILY 06/21/21 Metformin ER [Glucophage ER*] 500 mg PO BID 06/21/21 hydrOXYzine HCL [Atarax] 50 mg PO BID 06/21/21 Lactulose [Cephulac*] 30 ml PO TID 30 Days #1800 ucup 06/23/21 Rifaximin [Xifaxan] 550 mg PO BID #180 tablet 06/23/21 Furosemide [Lasix*] 40 mg PO BID #30 tab 02/08/22 Spironolactone 50 mg PO DAILY #30 02/08/22 Spironolactone [Aldactone*] 50 mg PO DAILY tab 02/08/22 New Medications: Furosemide [Lasix*] 40 mg PO BID #30 tab Spironolactone 50 mg PO DAILY #30 Followup: NONE,NONE [Primary Care Provider] -
[2022-02-08 10:47] VITALS: BP 151/78; TEMP 97.6
--- NOTE | 2022-02-08 15:41 | EKG ---
Test Date: 2022-02-07 Test Time: 11:13:30 Food Prep Worker: RICHARD MEASUREMENT RESULTS: Intervals: Rate: 71 NV: 168 QRSD: 84 QT: 408 QTc: 443 Larose: P: 29 NV: 168 QRS: -44 T: 42 INTERPRETIVE STATEMENTS: Normal sinus rhythm Left axis deviation Low voltage QRS Cannot rule out Anterior infarct, age undetermined Abnormal ECG Compared to ECG 01/24/2022 10:40:09 Left-axis deviation now present Low QRS voltage now present Left anterior fascicular block no longer present Myocardial infarct finding still present Electronically Signed On 02-08-22 15:39:12 CDT by Fazal Wright
== END 2022-02-08 10:59 | disposition home or self-care (01) ==
LOC: ER 10:43 → ERHOLD 16:03 → 4TH 17:13
PROVIDERS: ADMIT Internal Medicine; ATTEND Internal Medicine
DX: K72.90 Hepatic failure, unspecified without coma (principal); K70.31 Alcoholic cirrhosis of liver with ascites; E11.9 Type 2 diabetes mellitus without complications; R77.8 Other specified abnormalities of plasma proteins; I11.0 Hypertensive heart disease with heart failure; I50.9 Heart failure, unspecified; E78.5 Hyperlipidemia, unspecified; K21.9 Gastro-esophageal reflux disease without esophagitis; I86.4 Gastric varices; D64.9 Anemia, unspecified; E66.9 Obesity, unspecified; Z68.45 Body mass index [BMI] 70 or greater, adult; Z79.4 Long term (current) use of insulin; Z79.84 Long term (current) use of oral hypoglycemic drugs; Z79.899 Other long term (current) drug therapy; Z88.8 Allergy status to other drugs, medicaments and biological substances; Z87.891 Personal history of nicotine dependence; Z20.822 Contact with and (suspected) exposure to COVID-19; Z83.3 Family history of diabetes mellitus; Z83.79 Family history of other diseases of the digestive system
CPT/HCPCS: 36415; 70450; 71045; 76705; 80048; 80053; 80076; 81003; 82140; 83690; 83735; 83880; 84100; 84484; 85025; 85610; 87811; 93005; 93880; 94760; 96361; 96374; 99285; C9113; G0378; J1940; J3475; J7040; J8597

== ENCOUNTER 2022-05-23 16:07 | Emergency (ER) | payer OTHER ==
--- OUTSIDE RECORDS SUMMARY | 2022-05-23 16:32 | XMS REPORT | Continuity of Care Document ---
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 00:00: mouth daily. Medical Branch spironolact 0 Yes [id number] 25mg Take 1 [facility] one 25 mg 5-19 tablet by ity o f tablet 00:00: mouth 2 (two) Medical times Branch daily. carvediloL 2020-0 Yes [id number] 3.125mg Take 1 [facility] 3.125 mg 5-19 tablet by ity of tablet 00:00: mouth (two) Medical times Branch daily with meals. Pitavastati 2020-0 Yes [id number] 2mg Take 2 mg [facility] n (LIVALO) 5-19 by mouth ity o f 2 mg Tab 00:00: daily. Medical Branch metFORMIN 2020-0 Yes [id number] 500mg Take 1 [facility] 500 mg 5-19 tablet by ity of tablet 00:00: mouth 2 (two) Medical times Branch daily with meals. Blood-Gluco 2020-0 Yes [id number] Use BID, [facility] se Meter 5-19 DX E11.9 ity of (ACCU-CHEK 00:00: ([facility] [place] GUIDE 00 upon Medical GLUCOSE insurance Branch METER) Misc approval) ACCU-CHEK GUIDE blood sugar 2020-0 Yes [id number] Use BID, [facility] diagnostic 5-19 DX E11.9 ity o f (ACCU-CHEK 00:00: (musiXmatch GUIDE TEST 00 upon Medical STRIPS) insurance Branch strip approval) rifAXIMin 2020-0 Yes [id number] 550mg Take 1 [facility] 550 mg 5-19 tablet by ity of tablet 00:00: mouth (two) Medical times Branch daily. hydrOXYzine 2020-0 Yes [id number] 50mg Take 1 [facility] nivers 50 mg 5-19 tablet by ity of tablet 00:00: mouth (three) Medical times Branch daily as needed for Itching. lisinopriL 2020-0 Yes [id number] 20mg Take 1 [facility] nivers 20 mg 5-19 tablet by ity of tablet 00:00: mouth daily. Medical Branch spironolact 2020-0 Yes [id number] 25mg Take 1 [facility] one 25 mg 5-19 tablet by ity o f tablet 00:00: mouth (two) Medical times Branch daily. carvediloL 2020-0 Yes [id number] 3.125mg Take 1 [facility] 3.125 mg 5-19 tablet by ity of tablet 00:00: mouth (two) Medical times Branch daily with meals. Pitavastati 2020-0 Yes [id number] 2mg Take 2 mg [facility] n (LIVALO) 5-19 by mouth ity o f 2 mg Tab 00:00: daily. Medical Branch metFORMIN 2020-0 Yes [id number] 500mg Take 1 [facility] 500 mg 5-19 tablet by ity of tablet 00:00: mouth 2 (two) Medical times Branch daily with meals. Blood-Gluco 0 Yes [id number] Use BID, [facility] se Meter 5-19 DX E11.9 ity of (ACCU-CHEK 00:00: ([facility] [place] GUIDE 00 upon [facility] GLUCOSE insurance Branch METER) Misc approval) ACCU-CHEK GUIDE blood sugar 2020-0 Yes [id number] Use BID, [facility] diagnostic 5-19 DX E11.9 ity o f (ACCU-CHEK 00:00: (musiXmatch GUIDE TEST 00 upon Medical STRIPS) insurance Branch strip approval) rifAXIMin Yes [id number] 550mg Take 1 [facility] 550 mg 5-19 tablet by ity of tablet 00:00: mouth (two) Medical times Branch daily. hydrOXYzine Yes [id number] 50mg Take 1 [facility] nivers 50 mg 5-19 tablet by ity of tablet 00:00: mouth 3 (three) Medical times Branch daily as needed for Itching. lisinopriL Yes [id number] 20mg Take 1 [facility] nivers 20 mg 5-19 tablet by ity of tablet 00:00: mouth daily. Medical Branch spironolact 0 Yes [id number] 25mg Take 1 [facility] one 25 mg 5-19 tablet by ity o f tablet 00:00: mouth (two) Medical times Branch daily. carvediloL 2020- Yes [id number] 3.125mg Take 1 [facility] 3.125 mg 5-19 tablet by ity of tablet 00:00: mouth (two) Medical times Branch daily with meals. Pitavastati 2020-0 Yes [id number] 2mg Take 2 mg [facility] n (LIVALO) 5-19 by mouth ity o f 2 mg Tab 00:00: daily. Medical Branch metFORMIN 2020-0 Yes [id number] 500mg Take 1 [facility] 500 mg 5-19 tablet by ity of tablet 00:00: mouth (two) Medical times Branch daily with meals. Blood-Gluco 2020-0 Yes [id number] Use BID, [facility] se Meter 5-19 DX E11.9 ity of (ACCU-CHEK 00:00: (Brand [place] GUIDE upon Medical GLUCOSE insurance Branch METER) Mis approval) ACCU-CHEK GUIDE blood sugar 2020-0 Yes [id number] Use BID, [facility] diagnostic 5-19 DX E11.9 ity o f (ACCU-CHEK 00:00: (Brand [place] GUIDE TEST 00 upon Medical STRIPS) insurance Branch strip approval) rifAXIMin 2020-0 Yes [id number] 550mg Take 1 [facility] 550 mg 5-19 tablet by ity of tablet 00:00: mouth 2 (two) Medical times Branch daily. hydrOXYzine 2020-0 Yes [id number] 50mg Take 1 [facility] nivers 50 mg 5-19 tablet by ity of tablet 00:00: mouth 3 (three) Medical times Branch daily as needed for Itching. lisinopriL 2020-0 Yes [id number] 20mg Take 1 [facility] nivers 20 mg 5-19 tablet by ity of tablet 00:00: mouth daily. Medical Branch spironolact 2020-0 Yes [id number] 25mg Take 1 [facility] one 25 mg 5-19 tablet by ity o f tablet 00:00: mouth 2 (two) Medical times Branch daily. carvediloL 2020-0 Yes [id number] 3.125mg Take 1 [facility] 3.125 mg 5-19 tablet by ity of tablet 00:00: mouth (two) Medical times Branch daily with meals. Pitavastati 2020-0 Yes [id number] 2mg Take 2 mg [facility] n (LIVALO) 5-19 by mouth ity o f 2 mg Tab 00:00: daily. Medical Branch metFORMIN 2020-0 Yes [id number] 500mg Take 1 [facility] 500 mg 5-19 tablet by ity of tablet 00:00: mouth (two) Medical times Branch daily with meals. Blood-Gluco 2020-0 Yes [id number] Use BID, [facility] se Meter 5-19 DX E11.9 ity of (ACCU-CHEK 00:00: (Brand [place] GUIDE 00 upon Medical GLUCOSE insurance Branch METER) Misc approval) ACCU-CHEK GUIDE blood sugar Yes [id number] Use BID, [facility] diagnostic 5-19 DX E11.9 ity o f (ACCU-CHEK 00:00: (Brand [place] GUIDE TEST 00 upon Medical STRIPS) insurance Branch strip approval) furosemide 2020- No [id number] 40mg Take 1 [facility] 40 mg 5-19 10-20 tablet by ity of tablet 00:00: 00:00 mouth [place] 00 :00 every Medical morning Branch and evening. pantoprazol 2020- No [id number] 40mg Take 1 [facility] e 40 mg EC 5-19 10-19 tablet by ity of tablet 00:00: 00:00 mouth [place] 00 :00 daily. Medical Branch spironolact 2020- No 100mg Q.5D Take [address] [facility] one 4-06 04-06 mg by [facility] (ALDACTONE) 12:49: 00:00 mouth 2 Me dical 100 MG 47 :00 (two) Center tablet times daily. penicillin 2020- No 500mg Q.[id number] Take [address] [facility] potassium 4-06 04-06 [id number] mg [facility] (VEETID) 12:48: 00:00 3D [...] tablet 08 :00 daily. Center azithromyci Yes [id number] 250mg Take 1 [facility] n 3-24 tablet by ity of (ZITHROMAX 00:00: mouth [place] Z-MERCY) 250 00 daily. Medical mg tablet Take 500 Branch mg day 1, then 250 mg days 2 to 5. azithromyci 2020- No [id number] 250mg Take 1 [facility] n 3-24 05-19 tablet by ity of (ZITHROMAX 00:00: 00:00 mouth [place] Z-MERCY) 250 00 :00 daily. Medical mg tablet Take 500 Branch mg day 1, then 250 mg days 2 to 5. azithromyci 2020-0 2020- No [id number] 250mg Take 1 [facility] n 3-24 05-19 tablet by ity of (ZITHROMAX 00:00: 00:00 mouth [place] Z-MERCY) 250 00 :00 daily. Medical mg tablet Take 500 Branch mg day 1, then 250 mg days 2 to 5. LISINOPRIL 2020-0 Yes [id number] Take 1 [facility] nivers 20 mg 3-09 tablet by ity of tablet 00:00: mouth once [place] daily Medical Branch LISINOPRIL 2020-0 Yes [id number] Take 1 [facility] nivers 20 mg 3-09 tablet by ity of tablet 00:00: mouth once [place] daily Medical Branch LISINOPRIL 2020-0 Yes [id number] Take 1 [facility] nivers 20 mg 3-09 tablet by ity of tablet 00:00: mouth once [place] daily Medical Branch LISINOPRIL 2020-0 2020- No [id number] Take 1 [facility] 20 mg 3-09 -19 tablet by ity of tablet 00:00: 00:00 [place] 00 :[place] daily Medical Branch LISINOPRIL 2020-0 2020- No [id number] Take 1 [facility] 20 mg 3-09 -19 tablet by ity of tablet 00:00: 00:00 mouth [place] 00 :00 daily Medical Branch clobetasoL 2020-0 Yes [id number] Apply to [facility] 0.05 % 2-09 area(s) 2 ity of cream 00:00: (two) [place] 00 times Medical daily. Branch clobetasoL 2020-0 Yes [id number] Apply to [facility] 0.05 % 2-09 area(s) 2 ity of cream 00:00: (two) [place] 00 times Medical daily. Branch clobetasoL 2020-0 Yes [id number] Apply to [facility] 0.05 % 2-09 area(s) 2 ity of cream 00:00: (two) [place] 00 times Medical daily. Branch clobetasoL 2020-0 Yes [id number] Apply to [facility] 0.05 % 2-09 area(s) 2 ity of cream 00:00: (two) [place] 00 times Medical daily. Branch clobetasoL 2021-0 Yes [id number] Apply to [facility] 0.05 % 2-09 area(s) 2 ity of cream 00:00: (two) [place] 00 times Medical daily. Branch clobetasoL 2021-0 Yes [id number] Apply to [facility] 0.05 % 2-09 area(s) 2 ity of cream 00:00: (two) [place] 00 times Medical daily. Branch clobetasoL 2021-0 Yes [id number] Apply to [facility] 0.05 % 2-09 area(s) 2 ity of cream 00:00: (two) [place] 00 times Medical daily. Branch clobetasoL 2021-0 Yes [id number] Apply to [facility] 0.05 % 2-09 area(s) 2 ity of cream 00:00: (two) [place] 00 times Medical daily. Branch clobetasoL 2021-0 Yes [id number] Apply to [facility] 0.05 % 2-09 area(s) 2 ity of cream 00:00: (two) [place] 00 times Medical daily. Branch clobetasoL 2021-0 Yes [id number] Apply to [facility] 0.05 % 2-09 area(s) 2 ity of cream 00:00: (two) [place] 00 times Medical daily. Branch clobetasoL 2021-0 Yes [id number] Apply to Univers 0.05 % 2-09 area(s) 2 ity of cream 00:00: (two) [place] 00 times Medical daily. Branch clobetasoL 2021-0 Yes [id number] Apply to Univers 0.05 % 2-09 area(s) 2 ity of cream 00:00: (two) [place] 00 times Medical daily. Branch clobetasoL 2021-0 Yes [id number] Apply to Univers 0.05 % 2-09 area(s) 2 ity of cream 00:00: (two) [place] 00 times Medical daily. Branch clobetasoL 2021-0 Yes [id number] Apply to [facility] 0.05 % 2-09 area(s) 2 ity of cream 00:00: (two) [place] 00 times Medical daily. Branch azithromyci 1-0 2021- No 500mg 500 mg, IV Univers n [...] ity of 1,000 mg in 03:45: 03:27 [place], [place] NaCl 0.9% 00 :00 ONCE, 1 Medical (NS) 50 mL dose, Alyssa Bran ch MINI-BAG 06/25/20 at 2145, 50 mL
Reas on for Anti-Infec tive: Documented Infection< br>Documen lisa Infection Site: Respirator y
Durat ion of Therapy: 7 days foLIC acid Yes [id number] 1mg Take 1 [facility] 1 mg tablet 1-28 tablet by ity of 00:00: mouth [place] 00 [facility]. [facility] foLIC acid Yes [id number] 1mg Take 1 [facility] 1 mg tablet 1-28 tablet by ity of 00:00: mouth [place] 00 daily. [facility] foLIC acid Yes [id number] 1mg Take 1 [facility] 1 mg tablet 1-28 tablet by ity of 00:00: mouth [place] 00 daily. [facility] foLIC acid Yes [id number] 1mg Take 1 [facility] 1 mg tablet 1-28 tablet by ity of 00:00: mouth [place] 00 daily. [facility] foLIC acid Yes [id number] 1mg Take 1 [facility] 1 mg tablet 1-28 tablet by ity of 00:00: mouth [place] 00 daily. [facility] foLIC acid Yes [id number] 1mg Take 1 [facility] 1 mg tablet 1-28 tablet by ity of 00:00: mouth [place] 00 daily. [facility] foLIC acid Yes [id number] 1mg Take 1 [facility] 1 mg tablet 1-28 tablet by ity of 00:00: mouth [place] 00 daily. [facility] foLIC acid Yes [id number] 1mg Take 1 [facility] 1 mg tablet 1-28 tablet by ity of 00:00: mouth [place] 00 daily. Medical Branch foLIC acid 2020-0 Yes [id number] 1mg Take 1 [facility] 1 mg tablet 1-28 tablet by ity of 00:00: mouth [place] 00 daily. Medical Branch foLIC acid 2020-0 Yes [id number] 1mg Take 1 [facility] 1 mg tablet 1-28 tablet by ity of 00:00: mouth [place] 00 daily. Medical Branch foLIC acid 2020-0 Yes [id number] 1mg Take 1 [facility] 1 mg tablet 1-28 tablet by ity of 00:00: mouth [place] 00 daily. Medical Branch foLIC acid 2020-0 Yes [id number] 1mg Take 1 [facility] 1 mg tablet 1-28 tablet by ity of 00:00: mouth [place] 00 daily. Medical Branch foLIC acid 2020-0 Yes [id number] 1mg Take 1 [facility] 1 mg tablet 1-28 tablet by ity of 00:00: mouth [place] 00 daily. Medical Branch foLIC acid 2020-0 Yes [id number] 1mg Take 1 [facility] 1 mg tablet 1-28 tablet by ity of 00:00: mouth [place] 00 daily. Medical Branch foLIC acid 2020-0 Yes [id number] 1mg Take 1 [facility] 1 mg tablet 1-28 tablet by ity of 00:00: mouth [place] 00 daily. Medical Branch amoxicillin 2020- No [id number] 500mg Take 1 [facility] -pot 1-28 02-05 tablet by ity of clavulanate 00:00: 05:59 [place] 500 mg 00 :00 every 8 Medical 500-125 mg (eight) Branch tablet hours for 7 days. clobetasoL 2020-0 Yes 1{appli Q.5D Apply [address] [facility] (TEMOVATE) 8-03 cation} [facility] 0.05 % 00:00: n Medical cream 00 topically Center 2 (two) times daily. clobetasoL 2020-0 Yes 1{appli Q.5D Apply [address] (TEMOVATE) 8-03 cation} [facility] 0.05 % 00:00: n Medical cream 00 topically Center 2 (two) times daily. clobetasoL 2020-0 Yes 1{appli Q.5D Apply 1 [facility] [...] by Center mouth 2 (two) times daily. foLIC acid 2018-05 Yes [id number] 1mg Take 1 [facility] 1 mg tablet 2-20 tablet by ity of 00:00: mouth [place] 00 daily. Medical Branch pantoprazol 2018-05 Yes [id number] 40mg Take 1 [facility] e 40 mg EC 2-20 tablet by ity of tablet 00:00: mouth [place] 00 daily. Medical Branch triamcinolo 2018-05 Yes [id number] Apply to [facility] ne 2-20 affected ity of acetonide 00:00: area(s) 2 [place] 0.1 % cream 00 (two) Medical times Branch daily. furosemide 2018-05 Yes [id number] 40mg Take 1 U nivers 40 mg 2-20 tablet by ity of tablet 00:00: mouth [place] 00 every Medical morning Branch and evening. metFORMIN 2018-05 Yes [id number] 500mg Take 1 [facility] 500 mg 2-20 tablet by ity of tablet 00:00: mouth 2 [place] 00 (two) Medical times Branch daily with meals. carvedilol 2018-05 Yes [id number] 3.125mg Take 1 [facility] 3.125 mg 2-20 tablet by ity of tablet 00:00: mouth 2 [place] 00 (two) Medical times Branch daily with meals. lisinopril 2018-05 Yes [id number] 20mg Take 1 U nivers 20 mg 2-20 tablet by ity of tablet 00:00: mouth [place] 00 daily. Medical Branch spironolact 2018-05 Yes [id number] 25mg Take 1 [facility] one 25 mg 2-20 tablet by ity o f tablet 00:00: mouth 2 (two) Medical times Branch daily. rifAXIMin 2018-05 Yes [id number] 550mg Take 1 [facility] 550 mg 2-20 tablet by ity of tablet 00:00: mouth 2 (two) Medical times Branch daily. albuterol 2018-05 Yes [id number] 2{puff} Inhale 2 [facility] 90 2-20 Puffs ity of mcg/actuati 00:00: every 6 [place] on inhaler 00 (six) Medical hours as Branch needed for Wheezing or Shortness of Breath. Pitavastati 2018-05 Yes [id number] 2mg Take 2 mg [facility] n (LIVALO) 2-20 by mouth ity o f 2 mg Tab 00:00: daily. Medical Branch Lancets 2018-05 Yes [id number] Use BID, U nivers Misc 2-20 DX E11.9 ity of 00:00: ([facility] 00 upon Medical insurance Branch approval) blood sugar 2018-05 Yes [id number] Use BID, [facility] diagnostic 2-20 DX E11.9 ity o f (ACCU-CHEK 00:00: ([facility] GUIDE) upon Medical strip insurance Branch approval) lactulose 2018-05 Yes [id number] 15mL Take 15 mL [facility] 10 gram/15 2-20 by mouth 3 ity of mL solution 00:00: (three) [place] 00 times Medical daily. Branch hydrOXYzine 2018-05 Yes [id number] 50mg Take 1 U nivers 50 mg 2-20 tablet by ity of tablet 00:00: mouth 3 (three) Medical times Branch daily as needed for Itching. calcipotrie 2018-05 Yes [id number] Apply to [facility] ne 0.005 % 2-20 area(s) 2 ity of cream 00:00: (two) [place] 00 times Medical daily. Branch clobetasol 2018-05 Yes [id number] Apply to [facility] 0.05 % 2-20 area(s) 2 ity of cream 00:00: (two) [place] 00 times Medical daily. Branch foLIC acid 2018-05 Yes [id number] 1mg Take 1 [facility] 1 mg tablet 2-20 tablet by ity of 00:00: mouth [place] daily. Medical Branch pantoprazol 2018- Yes [id number] 40mg Take 1 [facility] e 40 mg EC 2-20 tablet by ity of tablet 00:00: mouth daily. Medical Branch triamcinolo 2018-05 Yes [id number] Apply to [facility] ne 2-20 affected ity of acetonide 00:00: area(s) 2 [place] 0.1 % cream 00 (two) Medical times Branch daily. furosemide 2018-05 Yes [id number] 40mg Take 1 U nivers 40 mg 2-20 tablet by ity of tablet 00:00: mouth 00 every Medical morning Branch and evening. metFORMIN 2018-05 Yes [id number] 500mg Take 1 [facility] 500 mg 2-20 tablet by ity of tablet 00:00: mouth (two) Medical times Branch daily with meals. carvedilol 2018-05 Yes [id number] 3.125mg Take 1 [facility] 3.125 mg 2-20 tablet by ity of tablet 00:00: mouth (two) Medical times Branch daily with meals. lisinopril 2018-05 Yes [id number] 20mg Take 1 U nivers 20 mg 2-20 tablet by ity of tablet 00:00: mouth daily. Medical Branch spironolact 2018-05 Yes [id number] 25mg Take 1 [facility] one 25 mg 2-20 tablet by ity o f tablet 00:00: mouth (two) Medical times Branch daily. rifAXIMin 2018-05 Yes [id number] 550mg Take 1 [facility] 550 mg 2-20 tablet by ity of tablet 00:00: mouth (two) Medical times Branch daily. albuterol 2018-05 Yes [id number] 2{puff} Inhale 2 [facility] 90 2-20 Puffs ity of mcg/actuati 00:00: every 6 [place] on inhaler 00 (six) Medical hours as Branch needed for Wheezing or Shortness of Breath. Pitavastati 2018-05 Yes [id number] 2mg Take 2 mg [facility] n (LIVALO) 2-20 by mouth ity o f 2 mg Tab 00:00: daily. Medical Branch Lancets 2018-05 Yes [id number] Use BID, U nivers Misc 2-20 DX E11.9 ity of 00:00: (Brand upon Medical insurance Branch approval) blood sugar 2018-05 Yes [id number] Use BID, [facility] diagnostic 2-20 DX E11.9 ity o f (ACCU-CHEK 00:00: (Brand [place] GUIDE) 00 upon Medical strip insurance Branch approval) lactulose 2018-05 Yes [id number] 15mL Take 15 mL [facility] 10 gram/15 2-20 by mouth 3 ity of mL solution 00:00: (three) [place] 00 times Medical daily. Branch hydrOXYzine 2018-05 Yes [id number] 50mg Take 1 U nivers 50 mg 2-20 tablet by ity of tablet 00:00: mouth 3 [place] 00 (three) Medical times Branch daily as needed for Itching. calcipotrie 2018-05 Yes [id number] Apply to [facility] ne 0.005 % 2-20 area(s) 2 ity of cream 00:00: (two) [place] 00 times Medical daily. Branch clobetasol 2018-05 Yes [id number] Apply to [facility] 0.05 % 2-20 area(s) 2 ity of cream 00:00: (two) [place] 00 times Medical daily. Branch pantoprazol 2018-05 Yes [id number] 40mg Take 1 [facility] e 40 mg EC 2-20 tablet by ity of tablet 00:00: mouth [place] 00 daily. Medical Branch triamcinolo 2018-05 Yes [id number] Apply to [facility] ne 2-20 affected ity of acetonide 00:00: area(s) 2 [place] 0.1 % cream 00 (two) Medical times Branch daily. furosemide 2018-05 Yes [id number] 40mg Take 1 U nivers 40 mg 2-20 tablet by ity of tablet 00:00: mouth [place] 00 every Medical morning Branch and evening. metFORMIN 2018-05 Yes [id number] 500mg Take 1 [facility] 500 mg 2-20 tablet by ity of tablet 00:00: mouth 2 [place] 00 (two) Medical times Branch daily with meals. carvedilol 2018-05 Yes [id number] 3.125mg Take 1 [facility] 3.125 mg 2-20 tablet by ity of tablet 00:00: mouth 2 [place] 00 (two) Medical times Branch daily with meals. lisinopril 2018-05 Yes [id number] 20mg Take 1 U nivers 20 mg 2-20 tablet by ity of tablet 00:00: mouth [place] 00 daily. Medical Branch spironolact 2018-05 Yes [id number] 25mg Take 1 [facility] one 25 mg 2-20 tablet by ity o f tablet 00:00: mouth 2 (two) Medical times Branch daily. rifAXIMin 2018-05 Yes [id number] 550mg Take 1 [facility] 550 mg 2-20 tablet by ity of tablet 00:00: mouth 2 (two) Medical times Branch daily. albuterol 2018-05 Yes [id number] 2{puff} Inhale 2 [facility] 90 2-20 Puffs ity of mcg/actuati 00:00: every 6 [place] on inhaler 00 (six) Medical hours as Branch needed for Wheezing or Shortness of Breath. Pitavastati 2018-05 Yes [id number] 2mg Take 2 mg [facility] n (LIVALO) 2-20 by mouth ity o f 2 mg Tab 00:00: daily. [place] [facility] Branch Lancets 2018-05 Yes [id number] Use BID, U nivers Misc 2-20 DX E11.9 ity of 00:00: ([facility] 00 upon Medical insurance Branch approval) blood sugar 2018-05 Yes [id number] Use BID, [facility] diagnostic 2-20 DX E11.9 ity o f (ACCU-CHEK 00:00: ([facility] GUIDE) [address] [place] [address] Medical strip insurance Branch approval) lactulose 2018-05 Yes [id number] 15mL Take 15 mL [facility] 10 gram/15 2-20 by mouth 3 ity of mL solution 00:00: (three) [place] 00 times Medical daily. Branch hydrOXYzine 2018-05 Yes [id number] 50mg Take 1 U nivers 50 mg 2-20 tablet by ity of tablet 00:00: mouth 3 [place] (three) Medical times Branch daily as needed for Itching. calcipotrie 2018-05 Yes [id number] Apply to [facility] ne 0.005 % 2-20 area(s) 2 ity of cream 00:00: (two) [place] 00 times Medical daily. Branch clobetasol 2018-05 Yes [id number] Apply to [facility] 0.05 % 2-20 area(s) 2 ity of cream 00:00: (two) [place] 00 times Medical daily. Branch pantoprazol 2018-05 Yes [id number] 40mg Take 1 [facility] e 40 mg EC 2-20 tablet by ity of tablet 00:00: mouth [place] 00 daily. Medical Branch triamcinolo 2018-05 Yes [id number] Apply to [facility] ne 2-20 affected ity of acetonide 00:00: area(s) 2 [place] 0.1 % cream 00 (two) Medical times Branch daily. albuterol 2018-05 Yes [id number] 2{puff} Inhale 2 [facility] 90 2-20 Puffs ity of mcg/actuati 00:00: every 6 [place] on inhaler 00 (six) Medical hours as Branch needed for Wheezing or Shortness of Breath. Lancets 2018-05 Yes [id number] Use BID, U nivers Misc 2-20 DX E11.9 ity of 00:00: (Brand [place] [address] upon Medical insurance Branch approval) lactulose 2018-05 Yes [id number] 15mL Take 15 mL [facility] 10 gram/15 2-20 by mouth 3 ity of mL solution 00:00: (three) [place] 00 times Medical daily. Branch calcipotrie 2018-05 Yes [id number] Apply to [facility] ne 0.005 % 2-20 area(s) 2 ity of cream 00:00: (two) [place] 00 times Medical daily. Branch triamcinolo 2018-05 Yes [id number] Apply to [facility] ne 2-20 affected ity of acetonide 00:00: area(s) 2 [place] 0.1 % cream 00 (two) Medical times Branch daily. furosemide 2018-05 Yes [id number] 40mg Take 1 U nivers 40 mg 2-20 tablet by ity of tablet 00:00: mouth [place] 00 every Medical morning Branch and evening. metFORMIN 2018-05 Yes [id number] 500mg Take 1 [facility] 500 mg 2-20 tablet by ity of tablet 00:00: mouth 2 [place] (two) Medical times Branch daily with meals. carvedilol 2018-05 Yes [id number] 3.125mg Take 1 [facility] 3.125 mg 2-20 tablet by ity of tablet 00:00: mouth 2 (two) Medical times Branch daily with meals. spironolact 2018-05 Yes [id number] 25mg Take 1 [facility] one 25 mg 2-20 tablet by ity o f tablet 00:00: mouth 2 [place] (two) Medical times Branch daily. rifAXIMin 2018-05 Yes [id number] 550mg Take 1 [facility] 550 mg 2-20 tablet by ity of tablet 00:00: mouth 2 [place] 00 (two) Medical times Branch daily. albuterol 2018-05 Yes [id number] 2{puff} Inhale 2 [facility] 90 2-20 Puffs ity of mcg/actuati 00:00: every 6 [place] on inhaler 00 (six) Medical hours as Branch needed for Wheezing or Shortness of Breath. Pitavastati 2018-05 Yes [id number] 2mg Take 2 mg [facility] n (LIVALO) 2-20 by mouth ity o f 2 mg Tab 00:00: daily. [place] 00 Medical Branch Lancets 2018-05 Yes [id number] Use BID, U nivers Misc 2-20 DX E11.9 ity of 00:00: ([facility] 00 upon Medical insurance Branch approval) blood sugar 2018-05 Yes [id number] Use BID, [facility] diagnostic 2-20 DX E11.9 ity o f (ACCU-CHEK 00:00: ([facility] GUIDE) upon Medical strip insurance Branch approval) lactulose 2018-05 Yes [id number] 15mL Take 15 mL [facility] 10 gram/15 2-20 by mouth 3 ity of mL solution 00:00: (three) [place] 00 times Medical daily. Branch hydrOXYzine 2018-05 Yes [id number] 50mg Take 1 U nivers 50 mg 2-20 tablet by ity of tablet 00:00: mouth 3 [place] 00 (three) Medical times Branch daily as needed for Itching. calcipotrie 2018-05 Yes [id number] Apply to Univers ne 0.005 % 2-20 area(s) 2 ity of cream 00:00: (two) [place] 00 times Medical daily. Branch pantoprazol 2018-05 Yes [id number] 40mg Take 1 [facility] e 40 mg EC 2-20 tablet by ity of tablet 00:00: mouth [place] 00 daily. Medical Branch triamcinolo 2018-05 Yes [id number] Apply to Univers ne 2-20 affected ity of acetonide 00:00: area(s) 2 [place] 0.1 % cream 00 (two) Medical times Branch daily. furosemide 2018-05 Yes [id number] 40mg Take 1 U nivers 40 mg 2-20 tablet by ity of tablet 00:00: mouth [place] 00 every Medical morning Branch and evening. metFORMIN 2018- Yes [id number] 500mg Take 1 [facility] 500 mg 2-20 tablet by ity of tablet 00:00: mouth 2 (two) Medical times Branch daily with meals. carvedilol 2018-05 Yes [id number] 3.125mg Take 1 [facility] 3.125 mg 2-20 tablet by ity of tablet 00:00: mouth 2 (two) Medical times Branch daily with meals. spironolact 2018-05 Yes [id number] 25mg Take 1 [facility] one 25 mg 2-20 tablet by ity o f tablet 00:00: mouth 2 (two) Medical times Branch daily. rifAXIMin 2018-05 Yes [id number] 550mg Take 1 [facility] 550 mg 2-20 tablet by ity of tablet 00:00: mouth 2 (two) Medical times Branch daily. albuterol 2018-05 Yes [id number] 2{puff} Inhale 2 [facility] 90 2-20 Puffs ity of mcg/actuati 00:00: every 6 [place] on inhaler 00 (six) Medical hours as Branch needed for Wheezing or Shortness of Breath. Pitavastati 2018-05 Yes [id number] 2mg Take 2 mg [facility] n (LIVALO) 2-20 by mouth ity o f 2 mg Tab 00:00: daily. [place] [facility] Branch Lancets 2018-05 Yes [id number] Use BID, U nivers Misc 2-20 DX E11.9 ity of 00:00: ([address] Medical insurance Branch approval) blood sugar 2018-05 Yes [id number] Use BID, [facility] diagnostic 2-20 DX E11.9 ity o f (ACCU-CHEK 00:00: ([facility] GUIDE) [address] [place] [address] strip insurance Branch approval) lactulose 2018-05 Yes [id number] 15mL Take 15 mL [facility] 10 gram/15 2-20 by mouth 3 ity of mL solution 00:00: (three) [place] 00 times Medical daily. Branch hydrOXYzine 2018-05 Yes [id number] 50mg Take 1 U nivers 50 mg 2-20 tablet by ity of tablet 00:00: mouth 3 00 (three) Medical times Branch daily as needed for Itching. calcipotrie 2018-05 Yes [id number] Apply to [facility] ne 0.005 % 2-20 area(s) 2 ity of cream 00:00: (two) [place] 00 times Medical daily. Branch pantoprazol 2018-05 Yes [id number] 40mg Take 1 [facility] e 40 mg EC 2-20 tablet by ity of tablet 00:00: mouth daily. Medical Branch triamcinolo 2018-05 Yes [id number] Apply to [facility] ne 2-20 affected ity of acetonide 00:00: area(s) 2 [place] 0.1 % cream 00 (two) Medical times Branch daily. furosemide 2018-05 Yes [id number] 40mg Take 1 U nivers 40 mg 2-20 tablet by ity of tablet 00:00: mouth every Medical morning Branch and evening. metFORMIN 2018-05 Yes [id number] 500mg Take 1 [facility] 500 mg 2-20 tablet by ity of tablet 00:00: mouth (two) Medical times Branch daily with meals. carvedilol 2018-05 Yes [id number] 3.125mg Take 1 [facility] 3.125 mg 2-20 tablet by ity of tablet 00:00: mouth (two) Medical times Branch daily with meals. spironolact 2018-05 Yes [id number] 25mg Take 1 [facility] one 25 mg 2-20 tablet by ity o f tablet 00:00: mouth (two) Medical times Branch daily. rifAXIMin 2018-05 Yes [id number] 550mg Take 1 [facility] 550 mg 2-20 tablet by ity of tablet 00:00: mouth (two) Medical times Branch daily. albuterol 2018-05 Yes [id number] 2{puff} Inhale 2 [facility] 90 2-20 Puffs ity of mcg/actuati 00:00: every 6 [place] on inhaler 00 (six) Medical hours as Branch needed for Wheezing or Shortness of Breath. Pitavastati 2018-05 Yes [id number] 2mg Take 2 mg [facility] n (LIVALO) 2-20 by mouth ity o f 2 mg Tab 00:00: daily. [place] [facility] Lancets 2018-05 Yes [id number] Use BID, U nivers Misc 2-20 DX E11.9 ity of 00:00: ([facility] 00 upon Medical insurance Branch approval) blood sugar 2018-05 Yes [id number] Use BID, [facility] diagnostic 2-20 DX E11.9 ity o f (ACCU-CHEK 00:00: ([facility] GUIDE) 00 upon Medical strip insurance Branch approval) lactulose 2018-05 Yes [id number] 15mL Take 15 mL [facility] 10 gram/15 2-20 by mouth 3 ity of mL solution 00:00: (three) [place] 00 times Medical daily. Branch hydrOXYzine 2018-05 Yes [id number] 50mg Take 1 U nivers 50 mg 2-20 tablet by ity of tablet 00:00: mouth 3 [place] 00 (three) Medical times Branch daily as needed for Itching. calcipotrie 2018-05 Yes [id number] Apply to [facility] ne 0.005 % 2-20 area(s) 2 ity of cream 00:00: (two) [place] 00 times Medical daily. Branch pantoprazol 2018-05 Yes [id number] 40mg Take 1 [facility] e 40 mg EC 2-20 tablet by ity of tablet 00:00: mouth [place] 00 daily. Medical Branch triamcinolo 2018-05 Yes [id number] Apply to [facility] ne 2-20 affected ity of acetonide 00:00: area(s) 2 [place] 0.1 % cream 00 (two) Medical times Branch daily. albuterol 2018-05 Yes [id number] 2{puff} Inhale 2 [facility] 90 2-20 Puffs ity of mcg/actuati 00:00: every 6 [place] on inhaler 00 (six) Medical hours as Branch needed for Wheezing or Shortness of Breath. Lancets 2018-05 Yes [id number] Use BID, U nivers Misc 2-20 DX E11.9 ity of 00:00: ([address] Medical insurance Branch approval) lactulose 2018-05 Yes [id number] 15mL Take 15 mL [facility] 10 gram/15 2-20 by mouth 3 ity of mL solution 00:00: (three) [place] 00 times Medical daily. Branch calcipotrie 2018-05 Yes [id number] Apply to [facility] ne 0.005 % 2-20 area(s) 2 ity of cream 00:00: (two) [place] 00 times Medical daily. Branch triamcinolo 2018-05 Yes [id number] Apply to [facility] ne 2-20 affected ity of acetonide 00:00: area(s) 2 [place] 0.1 % cream 00 (two) Medical times Branch daily. albuterol 2018-05 Yes [id number] 2{puff} Inhale 2 [facility] 90 2-20 Puffs ity of mcg/actuati 00:00: every 6 [place] on inhaler 00 (six) Medical hours as Branch needed for Wheezing or Shortness of Breath. Lancets 2018-05 Yes [id number] Use BID, U nivers Misc 2-20 DX E11.9 ity of 00:00: (Brand [address] Medical insurance Branch approval) lactulose 2018-05 Yes [id number] 15mL Take 15 mL [facility] 10 gram/15 2-20 by mouth 3 ity of mL solution 00:00: (three) [place] 00 times Medical daily. Branch calcipotrie 2018-05 Yes [id number] Apply to [facility] ne 0.005 % 2-20 area(s) 2 ity of cream 00:00: (two) [place] 00 times Medical daily. Branch triamcinolo 2018-05 Yes [id number] Apply to [facility] ne 2-20 affected ity of acetonide 00:00: area(s) 2 [place] 0.1 % cream 00 (two) Medical times Branch daily. albuterol 2018-05 Yes [id number] 2{puff} Inhale 2 [facility] 90 2-20 Puffs ity of mcg/actuati 00:00: every 6 [place] on inhaler 00 (six) Medical hours as Branch needed for Wheezing or Shortness of Breath. Lancets 2018-05 Yes [id number] Use BID, U nivers Misc 2-20 DX E11.9 ity of 00:00: (Brand [address] Medical insurance Branch approval) lactulose 2018-05 Yes [id number] 15mL Take 15 mL [facility] 10 gram/15 2-20 by mouth 3 ity of mL solution 00:00: (three) [place] 00 times Medical daily. Branch calcipotrie 2018-05 Yes [id number] Apply to [facility] ne 0.005 % 2-20 area(s) 2 ity of cream 00:00: (two) [place] 00 times Medical daily. Branch triamcinolo 2018-05 Yes [id number] Apply to [facility] ne 2-20 affected ity of acetonide 00:00: area(s) 2 [place] 0.1 % cream 00 (two) Medical times Branch daily. albuterol 2018-05 Yes [id number] 2{puff} Inhale 2 [facility] 90 2-20 Puffs ity of mcg/actuati 00:00: every 6 [place] on inhaler 00 (six) Medical hours as Branch needed for Wheezing or Shortness of Breath. Lancets 2018-05 Yes [id number] Use BID, U nivers Misc 2-20 DX E11.9 ity of 00:00: (Brand [address] Medical insurance Branch approval) lactulose 2018-05 Yes [id number] 15mL Take 15 mL [facility] 10 gram/15 2-20 by mouth 3 ity of mL solution 00:00: (three) [place] 00 times Medical daily. Branch calcipotrie 2018-05 Yes [id number] Apply to [facility] ne 0.005 % 2-20 area(s) 2 ity of cream 00:00: (two) [place] 00 times Medical daily. Branch triamcinolo 2018-05 Yes [id number] Apply to [facility] ne 2-20 affected ity of acetonide 00:00: area(s) 2 [place] 0.1 % cream 00 (two) Medical times Branch daily. albuterol 2018-05 Yes [id number] 2{puff} Inhale 2 [facility] 90 2-20 Puffs ity of mcg/actuati 00:00: every 6 [place] on inhaler 00 (six) Medical hours as Branch needed for Wheezing or Shortness of Breath. Lancets 2018-05 Yes [id number] Use BID, U nivers Misc 2-20 DX E11.9 ity of 00:00: (Brand [address] Medical insurance Branch approval) lactulose 2018-05 Yes [id number] 15mL Take 15 mL [facility] 10 gram/15 2-20 by mouth 3 ity of mL solution 00:00: (three) [place] 00 times Medical daily. Branch calcipotrie 2018-05 Yes [id number] Apply to [facility] ne 0.005 % 2-20 area(s) 2 ity of cream 00:00: (two) [place] 00 times Medical daily. Branch triamcinolo 2018-05 Yes [id number] Apply to [facility] ne 2-20 affected ity of acetonide 00:00: area(s) 2 [place] 0.1 % cream 00 (two) Medical times Branch daily. albuterol 2018-05 Yes [id number] 2{puff} Inhale 2 [facility] 90 2-20 Puffs ity of mcg/actuati 00:00: every 6 [place] on inhaler 00 (six) Medical hours as Branch needed for Wheezing or Shortness of Breath. Lancets 2018-05 Yes [id number] Use BID, U nivers Misc 2-20 DX E11.9 ity of 00:00: (Brand [address] Medical insurance Branch approval) lactulose 2018-05 Yes [id number] 15mL Take 15 mL [facility] 10 gram/15 2-20 by mouth 3 ity of mL solution 00:00: (three) [place] 00 times Medical daily. Branch calcipotrie 2018-05 Yes [id number] Apply to Univers ne 0.005 % 2-20 area(s) 2 ity of cream 00:00: (two) [place] 00 times Medical daily. Branch triamcinolo 2018-05 Yes [id number] Apply to Univers ne 2-20 affected ity of acetonide 00:00: area(s) 2 [place] 0.1 % cream 00 (two) Medical times Branch daily. albuterol 2018-05 Yes [id number] 2{puff} Inhale 2 [facility] 90 2-20 Puffs ity of mcg/actuati 00:00: every 6 [place] on inhaler 00 (six) Medical hours as Branch needed for Wheezing or Shortness of Breath. Lancets 2018- Yes [id number] Use BID, U nivers Misc 2-20 DX E11.9 ity of 00:00: (Brand [address] Medical insurance Branch approval) lactulose 2018-05 Yes [id number] 15mL Take 15 mL [facility] 10 gram/15 2-20 by mouth 3 ity of mL solution 00:00: (three) [place] 00 times Medical daily. Branch calcipotrie 2018-05 Yes [id number] Apply to [facility] ne 0.005 % 2-20 area(s) 2 ity of cream 00:00: (two) [place] 00 times Medical daily. Branch triamcinolo 2018-05 Yes [id number] Apply to Univers ne 2-20 affected ity of acetonide 00:00: area(s) 2 [place] 0.1 % cream 00 (two) Medical times Branch daily. albuterol 2018-05 Yes [id number] 2{puff} Inhale 2 [facility] 90 2-20 Puffs ity of mcg/actuati 00:00: every 6 [place] on inhaler 00 (six) Medical hours as Branch needed for Wheezing or Shortness of Breath. Lancets 2018-05 Yes [id number] Use BID, U nivers Misc 2-20 DX E11.9 ity of 00:00: (Brand [address] Branch approval) lactulose 2018-05 Yes [id number] 15mL Take 15 mL [facility] 10 gram/15 2-20 by mouth 3 ity of mL solution 00:00: (three) [place] 00 times Medical daily. Branch calcipotrie 2018-05 Yes [id number] Apply to [facility] ne 0.005 % 2-20 area(s) 2 ity of cream 00:00: (two) [place] 00 times Medical daily. Branch triamcinolo 2018-05 Yes [id number] Apply to Univers ne 2-20 affected ity of acetonide 00:00: area(s) 2 [place] 0.1 % cream 00 (two) Medical times Branch daily. albuterol 2018-05 Yes [id number] 2{puff} Inhale 2 [facility] 90 2-20 Puffs ity of mcg/actuati 00:00: every 6 [place] on inhaler 00 (six) Medical hours as Branch needed for Wheezing or Shortness of Breath. Lancets 2018-05 Yes [id number] Use BID, U nivers Misc 2-20 DX E11.9 ity of 00:00: (Brand [address] Branch approval) lactulose 2018-05 Yes [id number] 15mL Take 15 mL [facility] 10 gram/15 2-20 by mouth 3 ity of mL solution 00:00: (three) [place] 00 times Medical daily. Branch calcipotrie 2018-05 Yes [id number] Apply to Univers ne 0.005 % 2-20 area(s) 2 ity of cream 00:00: (two) [place] 00 times Medical daily. Branch triamcinolo 2018-05 Yes [id number] Apply to Univers ne 2-20 affected ity of acetonide 00:00: area(s) 2 [place] 0.1 % cream 00 (two) Medical times Branch daily. albuterol 2018-05 Yes [id number] 2{puff} Inhale 2 [facility] 90 2-20 Puffs ity of mcg/actuati 00:00: every 6 [place] on inhaler 00 (six) Medical hours as Branch needed for Wheezing or Shortness of Breath. Lancets 2018-05 Yes [id number] Use BID, U nivers Misc 2-20 DX E11.9 ity of 00:00: (Brand [place] 00 upon Medical insurance Branch approval) lactulose 2018-05 Yes [id number] 15mL Take 15 mL [facility] 10 gram/15 2-20 by mouth 3 ity of mL solution 00:00: (three) [place] 00 times Medical daily. Branch calcipotrie 2018-05 Yes [id number] Apply to Univers ne 0.005 % 2-20 area(s) 2 ity of cream 00:00: (two) [place] 00 times Medical daily. Branch triamcinolo 2018-05 Yes [id number] Apply to Univers ne 2-20 affected ity of acetonide 00:00: area(s) 2 [place] 0.1 % cream 00 (two) Medical times Branch daily. furosemide 2018-05 Yes [id number] 40mg Take 1 U nivers 40 mg 2-20 tablet by ity of tablet 00:00: mouth 00 every Medical morning Branch and evening. metFORMIN 2018- Yes [id number] 500mg Take 1 [facility] 500 mg 2-20 tablet by ity of tablet 00:00: mouth 2 (two) Medical times Branch daily with meals. carvedilol 2018-05 Yes [id number] 3.125mg Take 1 [facility] 3.125 mg 2-20 tablet by ity of tablet 00:00: mouth 2 [place] (two) Medical times Branch daily with meals. lisinopril 2018-05 Yes [id number] 20mg Take 1 U nivers 20 mg 2-20 tablet by ity of tablet 00:00: mouth [place] daily. Medical Branch spironolact 2018-05 Yes [id number] 25mg Take 1 Univers one 25 mg 2-20 tablet by ity o f tablet 00:00: mouth 2 [place] (two) Medical times Branch daily. rifAXIMin 2018-05 Yes [id number] 550mg Take 1 [facility] 550 mg 2-20 tablet by ity of tablet 00:00: mouth 2 [place] (two) Medical times Branch daily. albuterol 2018-05 Yes [id number] 2{puff} Inhale 2 [facility] 90 2-20 Puffs ity of mcg/actuati 00:00: every 6 [place] on inhaler 00 (six) Medical hours as Branch needed for Wheezing or Shortness of Breath. Pitavastati 2018-05 Yes [id number] 2mg Take 2 mg [facility] n (LIVALO) 2-20 by mouth ity o f 2 mg Tab 00:00: daily. 00 Medical Branch Lancets 2018-05 Yes [id number] Use BID, U nivers Misc 2-20 DX E11.9 ity of 00:00: ([facility] [place] 00 upon Medical insurance Branch approval) blood sugar 2018-05 Yes [id number] Use BID, [facility] diagnostic 2-20 DX E11.9 ity o f (ACCU-CHEK 00:00: ([facility] GUIDE) 00 upon Medical strip insurance Branch approval) lactulose 2018-05 Yes [id number] 15mL Take 15 mL [facility] 10 gram/15 2-20 by mouth 3 ity of mL solution 00:00: (three) [place] 00 times Medical daily. Branch hydrOXYzine 2018-05 Yes [id number] 50mg Take 1 U nivers 50 mg 2-20 tablet by ity of tablet 00:00: mouth 3 [place] 00 (three) Medical times Branch daily as needed for Itching. calcipotrie 2018-05 Yes [id number] Apply to Univers ne 0.005 % 2-20 area(s) 2 ity of cream 00:00: (two) [place] 00 times Medical daily. Branch clobetasol 2018-05 Yes [id number] Apply to Univers 0.05 % 2-20 area(s) 2 ity of cream 00:00: (two) [place] 00 times Medical daily. Branch furosemide 2018-05- No [id number] 40mg Take 1 [facility] 40 mg 2-20 05-19 tablet by ity of tablet 00:00: 00:00 mouth [place] 00 :00 every Medical morning Branch and evening. metFORMIN 2018-05- No [id number] 500mg Take 1 [facility] 500 mg 2-20 05-19 tablet by ity of tablet 00:00: 00:00 mouth 2 [place] 00 :00 (two) Medical times Branch daily with meals. carvedilol 2018-05- No [id number] 3.125mg Take 1 [facility] 3.125 mg 2-20 05-19 tablet by ity o f tablet 00:00: 00:00 mouth 2 [place] 00 :00 (two) Medical times Branch daily with meals. spironolact 2018-05- No [id number] 25mg Take 1 [facility] one 25 mg 2-20 05-19 tablet by ity of tablet 00:00: 00:00 mouth 2 [place] 00 :00 (two) Medical times Branch daily. rifAXIMin 2018-05- No [id number] 550mg Take 1 [facility] 550 mg 2-20 05-19 tablet by ity of tablet 00:00: 00:00 mouth 2 [place] 00 :00 (two) Medical times Branch daily. Pitavastati 2018-05- No [id number] 2mg Take 2 mg [facility] n (LIVALO) 2-20 05-19 by mouth ity of 2 mg Tab 00:00: 00:00 daily. [place] 00 :00 Medical Branch blood sugar 2018-05- No [id number] Use BID, [facility] diagnostic 2-20 05-19 DX E11.9 ity of (ACCU-CHEK 00:00: 00:00 (Brand [place] GUIDE[place] 00 :00 upon Medical strip insurance Branch approval) hydrOXYzine 2018-05- No [id number] 50mg Take 1 [facility] 50 mg 2-20 05-19 tablet by ity of tablet 00:00: 00:00 mouth 3 [place] 00 :00 (three) Medical times Branch daily as needed for Itching. pantoprazol 2018-05- No [id number] 40mg Take 1 [facility] e 40 mg EC 2-20 05-19 tablet by ity of tablet 00:00: 00:00 mouth [place] 00 :00 daily. Medical Branch furosemide 2018-05- No [id number] 40mg Take 1 [facility] 40 mg 2-20 05-19 tablet by ity of tablet 00:00: 00:00 mouth [place] 00 :00 every Medical morning Branch and evening. metFORMIN 2018-05- No [id number] 500mg Take 1 [facility] 500 mg 2-20 05-19 tablet by ity of tablet 00:00: 00:00 mouth 2 [place] 00 :00 (two) Medical times Branch daily with meals. carvedilol 2018-05- No [id number] 3.125mg Take 1 [facility] 3.125 mg 2-20 05-19 tablet by ity o f tablet 00:00: 00:00 mouth 2 [place] 00 :00 (two) Medical times Branch daily with meals. spironolact 2018-05- No [id number] 25mg Take 1 [facility] one 25 mg 07-18- tablet by ity of tablet 00:00: 00:00 mouth 2 [place] 00 :00 (two) Medical times Branch daily. rifAXIMin 2018-05- No [id number] 550mg Take 1 [facility] 550 mg 07-18- tablet by ity of tablet 00:00: 00:00 mouth 2 [place] 00 :00 (two) Medical times Branch daily. Pitavastati 2018-05- No [id number] 2mg Take 2 mg [facility] n (LIVALO) 07-18 by mouth ity of 2 mg Tab 00:00: 00:00 daily. [place] 00 :00 Medical Branch blood sugar 2018-05- No [id number] Use BID, [facility] diagnostic 07-18 DX E11.9 ity of (ACCU-CHEK 00:00: 00:00 (Brand [place] GUIDE[place] 00 :00 upon Medical strip insurance Branch approval) hydrOXYzine 2018-05- No [id number] 50mg Take 1 [facility] 50 mg 07-18 tablet by ity of tablet 00:00: 00:00 mouth 3 [place] 00 :00 (three) Medical times Branch daily as needed for Itching. pantoprazol 2018-05- No [id number] 40mg Take 1 [facility] e 40 mg EC 07-18 tablet by ity of tablet 00:00: 00:00 mouth [place] 00 :00 daily. Medical Branch lisinopril 2018-05- No [id number] 20mg Take 1 [facility] 20 mg 07-18 tablet by ity of tablet 00:00: 00:00 mouth [place] 00 :00 daily. Medical Branch foLIC acid 2018-05- No [id number] 1mg Take 1 [facility] 1 mg tablet 07-18 tablet by it y of 00:00: 00:00 mouth [place] 00 :00 daily. Medical Branch foLIC acid 2018-05- No [id number] 1mg Take 1 [facility] 1 mg tablet 07-18 tablet by it y of 00:00: 00:00 mouth [place] 00 :00 daily. Medical Branch doxycycline 2019- Yes [id number] 100mg Take 1 [facility] 100 mg 8-29 tablet by ity of tablet 00:00: mouth 2 [place] 00 (two) Medical times Branch daily. doxycycline 2019-0 Yes [id number] 100mg Take 1 [facility] 100 mg 8-29 tablet by ity of tablet 00:00: mouth 2 [place] (two) Medical times Branch daily. doxycycline 2019-0 Yes [id number] 100mg Take 1 [facility] 100 mg 8-29 tablet by ity of tablet 00:00: mouth 2 [place] 00 (two) Medical times Branch daily. doxycycline 2019-0 Yes [id number] 100mg Take 1 [facility] 100 mg 8-29 tablet by ity of tablet 00:00: mouth 2 [place] 00 (two) Medical times Branch daily. doxycycline 2019-0 Yes [id number] 100mg Take 1 [facility] 100 mg 8-29 tablet by ity of tablet 00:00: mouth 2 [place] (two) Medical times Branch daily. doxycycline 2019-0 Yes [id number] 100mg Take 1 [facility] 100 mg 8-29 tablet by ity of tablet 00:00: mouth 2 [place] 00 (two) Medical times Branch daily. doxycycline 2019- Yes [id number] 100mg Take 1 [facility] 100 mg 8-29 tablet by ity of tablet 00:00: mouth 2 [place] (two) Medical times Branch daily. doxycycline 2019- Yes [id number] 100mg Take 1 [facility] 100 mg 8-29 tablet by ity of tablet 00:00: mouth 2 [place] (two) Medical times Branch daily. doxycycline 2019-0 Yes [id number] 100mg Take 1 [facility] 100 mg 8-29 tablet by ity of tablet 00:00: mouth 2 [place] 00 (two) Medical times Branch daily. doxycycline 2019-0 Yes [id number] 100mg Take 1 [facility] 100 mg 8-29 tablet by ity of tablet 00:00: mouth 2 [place] (two) Medical times Branch daily. doxycycline 2020- No [id number] 100mg Take 1 [facility] 100 mg 8-29 05-19 tablet by ity of tablet 00:00: 00:00 mouth 2 [place] 00 :00 (two) Medical times Branch daily. doxycycline 2018-2020- No [id number] 100mg Take 1 [facility] 100 mg 8-29 05-19 tablet by ity of tablet 00:00: 00:00 mouth 2 [place] 00 :00 (two) Medical times Branch daily. spironolact 2019- Yes [id number] 25mg Take 1 [facility] one 25 mg 8-07 tablet by ity o f tablet 00:00: mouth (two) Medical times Branch daily. spironolact 2018- Yes [id number] 25mg Take 1 [facility] one 25 mg 8-07 tablet by ity o f tablet 00:00: mouth (two) Medical times Branch daily. spironolact 0 Yes [id number] 25mg Take 1 [facility] one 25 mg 8-07 tablet by ity o f tablet 00:00: mouth (two) Medical times Branch daily. spironolact 2018-0 Yes [id number] 25mg Take 1 [facility] one 25 mg 8-07 tablet by ity o f tablet 00:00: mouth (two) Medical times Branch daily. spironolact Yes [id number] 25mg Take 1 [facility] one 25 mg 8-07 tablet by ity o f tablet 00:00: mouth (two) Medical times Branch daily. spironolact Yes [id number] 25mg Take 1 [facility] one 25 mg 8-07 tablet by ity o f tablet 00:00: mouth (two) Medical times Branch daily. spironolact Yes [id number] 25mg Take 1 [facility] one 25 mg 8-07 tablet by ity o f tablet 00:00: mouth (two) Medical times Branch daily. spironolact 0 Yes [id number] 25mg Take 1 [facility] one 25 mg 8-07 tablet by ity o f tablet 00:00: mouth (two) Medical times Branch daily. spironolact Yes [id number] 25mg Take 1 [facility] one 25 mg 8-07 tablet by ity o f tablet 00:00: mouth (two) Medical times Branch daily. spironolact Yes [id number] 25mg Take 1 [facility] one 25 mg 8-07 tablet by ity o f tablet 00:00: mouth (two) Medical times Branch daily. ALPRAZolam 2018- Yes [id number] 1mg Take 1 [facility] 1 mg tablet 7-22 tablet by ity of 00:00: mouth 2 (two) Medical times Branch daily. Prn anxiety carvedilol 2018- Yes [id number] 3.125mg Take 1 [facility] 3.125 mg 7-22 tablet by ity of tablet 00:00: mouth 2 (two) Medical times Branch daily with meals. foLIC acid Yes [id number] 1mg Take 1 [facility] 1 mg tablet 7-22 tablet by ity of 00:00: mouth [place] 00 daily. Medical Branch furosemide Yes [id number] 40mg Take 1 [facility] 40 mg 7-22 tablet by ity of tablet 00:00: mouth [place] 00 daily. Medical Branch hydrOXYzine Yes [id number] 50mg Take 1 [facility] 50 mg 7-22 tablet by ity of tablet 00:00: mouth 3 00 (three) Medical times Branch daily as needed for Itching. metFORMIN 2018- Yes [id number] 500mg Take 1 [facility] 500 mg 7-22 tablet by ity of tablet 00:00: mouth 2 00 (two) Medical times Branch daily with meals. pantoprazol 2018- Yes [id number] 40mg Take 1 [facility] e 40 mg EC 7-22 tablet by ity of tablet 00:00: mouth [place] 00 daily. Medical Branch clobetasol Yes [id number] Apply to [facility] 0.05 % 7-22 area(s) 2 ity of cream 00:00: (two) 00 times Medical daily. Branch triamcinolo Yes [id number] Apply to Univers ne 7-22 affected ity of acetonide 00:00: area(s) 2 [place] 0.1 % cream 00 (two) Medical times Branch daily. ALPRAZolam Yes [id number] 1mg Take 1 [facility] 1 mg tablet 7-22 tablet by ity of 00:00: mouth 2 00 (two) Medical times Branch daily. Prn anxiety carvedilol 2018- Yes [id number] 3.125mg Take 1 [facility] 3.125 mg 7-22 tablet by ity of tablet 00:00: mouth 2 00 (two) Medical times Branch daily with meals. foLIC acid Yes [id number] 1mg Take 1 [facility] 1 mg tablet 7-22 tablet by ity of 00:00: mouth [place] 00 daily. Medical Branch furosemide Yes [id number] 40mg Take 1 [facility] 40 mg 7-22 tablet by ity of tablet 00:00: mouth [place] 00 daily. Medical Branch hydrOXYzine 2018- Yes [id number] 50mg Take 1 [facility] 50 mg 7-22 tablet by ity of tablet 00:00: mouth 3 (three) Medical times Branch daily as needed for Itching. metFORMIN 2018- Yes [id number] 500mg Take 1 [facility] 500 mg 7-22 tablet by ity of tablet 00:00: mouth 2 (two) Medical times Branch daily with meals. pantoprazol 2018- Yes [id number] 40mg Take 1 [facility] e 40 mg EC 7-22 tablet by ity of tablet 00:00: mouth 00 daily. Medical Branch clobetasol 2018- Yes [id number] Apply to Univers 0.05 % 7-22 area(s) 2 ity of cream 00:00: (two) times Medical daily. Branch triamcinolo Yes [id number] Apply to Univers ne 7-22 affected ity of acetonide 00:00: area(s) 2 [place] 0.1 % cream 00 (two) Medical times Branch daily. ALPRAZolam Yes [id number] 1mg Take 1 [facility] 1 mg tablet 7-22 tablet by ity of 00:00: mouth 2 (two) Medical times Branch daily. Prn anxiety carvedilol 2018- Yes [id number] 3.125mg Take 1 [facility] 3.125 mg 7-22 tablet by ity of tablet 00:00: mouth 2 (two) Medical times Branch daily with meals. foLIC acid 2018- Yes [id number] 1mg Take 1 [facility] 1 mg tablet 7-22 tablet by ity of 00:00: mouth 00 daily. Medical Branch furosemide 2018- Yes [id number] 40mg Take 1 [facility] 40 mg 7-22 tablet by ity of tablet 00:00: mouth 00 daily. Medical Branch hydrOXYzine 2018- Yes [id number] 50mg Take 1 [facility] 50 mg 7-22 tablet by ity of tablet 00:00: mouth 3 (three) Medical times Branch daily as needed for Itching. metFORMIN 2018- Yes [id number] 500mg Take 1 [facility] 500 mg 7-22 tablet by ity of tablet 00:00: mouth 2 (two) Medical times Branch daily with meals. pantoprazol 2018- Yes [id number] 40mg Take 1 [facility] e 40 mg EC 7-22 tablet by ity of tablet 00:00: mouth [place] 00 daily. Medical Branch clobetasol Yes [id number] Apply to [facility] 0.05 % 7-22 area(s) 2 ity of cream 00:00: (two) [place] 00 times Medical daily. Branch triamcinolo Yes [id number] Apply to Univers ne 7-22 affected ity of acetonide 00:00: area(s) 2 [place] 0.1 % cream 00 (two) Medical times Branch daily. ALPRAZolam 2018- Yes [id number] 1mg Take 1 [facility] 1 mg tablet 7-22 tablet by ity of 00:00: mouth 2 [place] 00 (two) Medical times Branch daily. Prn anxiety carvedilol 2018- Yes [id number] 3.125mg Take 1 [facility] 3.125 mg 7-22 tablet by ity of tablet 00:00: mouth 2 00 (two) Medical times Branch daily with meals. foLIC acid 2018- Yes [id number] 1mg Take 1 [facility] 1 mg tablet 7-22 tablet by ity of 00:00: mouth [place] 00 daily. Medical Branch furosemide 2018- Yes [id number] 40mg Take 1 [facility] 40 mg 7-22 tablet by ity of tablet 00:00: mouth [place] 00 daily. Medical Branch hydrOXYzine Yes [id number] 50mg Take 1 [facility] 50 mg 7-22 tablet by ity of tablet 00:00: mouth 3 [place] 00 (three) Medical times Branch daily as needed for Itching. metFORMIN Yes [id number] 500mg Take 1 [facility] 500 mg 7-22 tablet by ity of tablet 00:00: mouth 2 [place] 00 (two) Medical times Branch daily with meals. pantoprazol 2018- Yes [id number] 40mg Take 1 [facility] e 40 mg EC 7-22 tablet by ity of tablet 00:00: mouth [place] 00 daily. Medical Branch clobetasol Yes [id number] Apply to [facility] 0.05 % 7-22 area(s) 2 ity of cream 00:00: (two) [place] 00 times Medical daily. Branch triamcinolo Yes [id number] Apply to [facility] ne 7-22 affected ity of acetonide 00:00: area(s) 2 [place] 0.1 % cream 00 (two) Medical times Branch daily. ALPRAZolam 2018- Yes [id number] 1mg Take 1 [facility] 1 mg tablet 7-22 tablet by ity of 00:00: mouth 2 (two) Medical times Branch daily. Prn anxiety carvedilol 2018- Yes [id number] 3.125mg Take 1 [facility] 3.125 mg 7-22 tablet by ity of tablet 00:00: mouth 2 (two) Medical times Branch daily with meals. foLIC acid Yes [id number] 1mg Take 1 [facility] 1 mg tablet 7-22 tablet by ity of 00:00: mouth 00 daily. Medical Branch hydrOXYzine 2018- Yes [id number] 50mg Take 1 [facility] 50 mg 7-22 tablet by ity of tablet 00:00: mouth 3 (three) Medical times Branch daily as needed for Itching. metFORMIN 2018- Yes [id number] 500mg Take 1 [facility] 500 mg 7-22 tablet by ity of tablet 00:00: mouth 2 (two) Medical times Branch daily with meals. pantoprazol Yes [id number] 40mg Take 1 [facility] e 40 mg EC 7-22 tablet by ity of tablet 00:00: mouth daily. Medical Branch clobetasol Yes [id number] Apply to [facility] 0.05 % 7-22 area(s) 2 ity of cream 00:00: (two) 00 times Medical daily. Branch triamcinolo Yes [id number] Apply to [facility] ne 7-22 affected ity of acetonide 00:00: area(s) 2 [place] 0.1 % cream 00 (two) Medical times Branch daily. ALPRAZolam Yes [id number] 1mg Take 1 [facility] 1 mg tablet 7-22 tablet by ity of 00:00: mouth 2 (two) Medical times Branch daily. Prn anxiety carvedilol 2018- Yes [id number] 3.125mg Take 1 [facility] 3.125 mg 7-22 tablet by ity of tablet 00:00: mouth 2 (two) Medical times Branch daily with meals. foLIC acid Yes [id number] 1mg Take 1 [facility] 1 mg tablet 7-22 tablet by ity of 00:00: mouth [place] 00 daily. Medical Branch hydrOXYzine 2018- Yes [id number] 50mg Take 1 [facility] 50 mg 7-22 tablet by ity of tablet 00:00: mouth 3 (three) Medical times Branch daily as needed for Itching. metFORMIN 2018- Yes [id number] 500mg Take 1 [facility] 500 mg 7-22 tablet by ity of tablet 00:00: mouth 2 (two) Medical times Branch daily with meals. pantoprazol 2018- Yes [id number] 40mg Take 1 [facility] e 40 mg EC 7-22 tablet by ity of tablet 00:00: mouth 00 daily. Medical Branch clobetasol Yes [id number] Apply to [facility] 0.05 % 7-22 area(s) 2 ity of cream 00:00: (two) [place] 00 times Medical daily. Branch triamcinolo Yes [id number] Apply to [facility] ne 7-22 affected ity of acetonide 00:00: area(s) 2 [place] 0.1 % cream 00 (two) Medical times Branch daily. ALPRAZolam 2018- Yes [id number] 1mg Take 1 [facility] 1 mg tablet 7-22 tablet by ity of 00:00: mouth 2 (two) Medical times Branch daily. Prn anxiety carvedilol 2018-0 Yes [id number] 3.125mg Take 1 [facility] 3.125 mg 7-22 tablet by ity of tablet 00:00: mouth 2 (two) Medical times Branch daily with meals. foLIC acid 2018- Yes [id number] 1mg Take 1 [facility] 1 mg tablet 7-22 tablet by ity of 00:00: mouth 00 daily. Medical Branch hydrOXYzine Yes [id number] 50mg Take 1 [facility] 50 mg 7-22 tablet by ity of tablet 00:00: mouth 3 (three) Medical times Branch daily as needed for Itching. metFORMIN 2018- Yes [id number] 500mg Take 1 [facility] 500 mg 7-22 tablet by ity of tablet 00:00: mouth 2 (two) Medical times Branch daily with meals. pantoprazol 2018- Yes [id number] 40mg Take 1 [facility] e 40 mg EC 7-22 tablet by ity of tablet 00:00: mouth 00 daily. Medical Branch clobetasol Yes [id number] Apply to [facility] 0.05 % 7-22 area(s) 2 ity of cream 00:00: (two) [place] 00 times Medical daily. Branch triamcinolo Yes [id number] Apply to [facility] ne 7-22 affected ity of acetonide 00:00: area(s) 2 [place] 0.1 % cream 00 (two) Medical times Branch daily. ALPRAZolam Yes [id number] 1mg Take 1 [facility] 1 mg tablet 7-22 tablet by ity of 00:00: mouth 2 (two) Medical times Branch daily. Prn anxiety carvedilol Yes [id number] 3.125mg Take 1 [facility] 3.125 mg 7-22 tablet by ity of tablet 00:00: mouth 2 (two) Medical times Branch daily with meals. foLIC acid Yes [id number] 1mg Take 1 [facility] 1 mg tablet 7-22 tablet by ity of 00:00: mouth 00 daily. Medical Branch hydrOXYzine Yes [id number] 50mg Take 1 [facility] 50 mg 7-22 tablet by ity of tablet 00:00: mouth 3 (three) Medical times Branch daily as needed for Itching. metFORMIN Yes [id number] 500mg Take 1 [facility] 500 mg 7-22 tablet by ity of tablet 00:00: mouth 2 (two) Medical times Branch daily with meals. pantoprazol Yes [id number] 40mg Take 1 [facility] e 40 mg EC 7-22 tablet by ity of tablet 00:00: mouth 00 daily. Medical Branch clobetasol Yes [id number] Apply to [facility] 0.05 % 7-22 area(s) 2 ity of cream 00:00: (two) [place] 00 times Medical daily. Branch triamcinolo Yes [id number] Apply to [facility] ne 7-22 affected ity of acetonide 00:00: area(s) 2 [place] 0.1 % cream 00 (two) Medical times Branch daily. ALPRAZolam Yes [id number] 1mg Take 1 [facility] 1 mg tablet 7-22 tablet by ity of 00:00: mouth 2 (two) Medical times Branch daily. Prn anxiety carvedilol 2018- Yes [id number] 3.125mg Take 1 [facility] 3.125 mg 7-22 tablet by ity of tablet 00:00: mouth 2 (two) Medical times Branch daily with meals. foLIC acid 2018- Yes [id number] 1mg Take 1 [facility] 1 mg tablet 7-22 tablet by ity of 00:00: mouth [place] 00 daily. Medical Branch hydrOXYzine 2018- Yes [id number] 50mg Take 1 [facility] 50 mg 7-22 tablet by ity of tablet 00:00: mouth 3 (three) Medical times Branch daily as needed for Itching. metFORMIN 2018- Yes [id number] 500mg Take 1 [facility] 500 mg 7-22 tablet by ity of tablet 00:00: mouth 2 (two) Medical times Branch daily with meals. pantoprazol 2018- Yes [id number] 40mg Take 1 [facility] e 40 mg EC 7-22 tablet by ity of tablet 00:00: mouth 00 daily. Medical Branch clobetasol Yes [id number] Apply to [facility] 0.05 % 7-22 area(s) 2 ity of cream 00:00: (two) 00 times Medical daily. Branch triamcinolo Yes [id number] Apply to [facility] ne 7-22 affected ity of acetonide 00:00: area(s) 2 [place] 0.1 % cream 00 (two) Medical times Branch daily. ALPRAZolam Yes [id number] 1mg Take 1 [facility] 1 mg tablet 7-22 tablet by ity of 00:00: mouth 2 (two) Medical times Branch daily. Prn anxiety carvedilol 2018- Yes [id number] 3.125mg Take 1 [facility] 3.125 mg 7-22 tablet by ity of tablet 00:00: mouth 2 (two) Medical times Branch daily with meals. foLIC acid 2018- Yes [id number] 1mg Take 1 [facility] 1 mg tablet 7-22 tablet by ity of 00:00: mouth [place] 00 daily. Medical Branch hydrOXYzine 2018- Yes [id number] 50mg Take 1 [facility] 50 mg 7-22 tablet by ity of tablet 00:00: mouth 3 (three) Medical times Branch daily as needed for Itching. metFORMIN 2018- Yes [id number] 500mg Take 1 [facility] 500 mg 7-22 tablet by ity of tablet 00:00: mouth 2 [place] 00 (two) Medical times Branch daily with meals. pantoprazol 2018- Yes [id number] 40mg Take 1 [facility] e 40 mg EC 7-22 tablet by ity of tablet 00:00: mouth [place] 00 daily. Medical Branch clobetasol 2018- Yes [id number] Apply to [facility] 0.05 % 7-22 area(s) 2 ity of cream 00:00: (two) [place] 00 times Medical daily. Branch triamcinolo Yes [id number] Apply to [facility] ne 7-22 affected ity of acetonide 00:00: area(s) 2 [place] 0.1 % cream 00 (two) Medical times Branch daily. ALPRAZolam 2018- Yes [id number] 1mg Take 1 [facility] 1 mg tablet 7-22 tablet by ity of 00:00: mouth 2 00 (two) Medical times Branch daily. Prn anxiety carvedilol 2018- Yes [id number] 3.125mg Take 1 [facility] 3.125 mg 7-22 tablet by ity of tablet 00:00: mouth 2 00 (two) Medical times Branch daily with meals. foLIC acid 2018- Yes [id number] 1mg Take 1 [facility] 1 mg tablet 7-22 tablet by ity of 00:00: mouth [place] 00 daily. Medical Branch hydrOXYzine Yes [id number] 50mg Take 1 [facility] 50 mg 7-22 tablet by ity of tablet 00:00: mouth 3 [place] 00 (three) Medical times Branch daily as needed for Itching. metFORMIN 2018- Yes [id number] 500mg Take 1 [facility] 500 mg 7-22 tablet by ity of tablet 00:00: mouth 2 [place] 00 (two) Medical times Branch daily with meals. pantoprazol 2018- Yes [id number] 40mg Take 1 [facility] e 40 mg EC 7-22 tablet by ity of tablet 00:00: mouth [place] 00 daily. Medical Branch clobetasol 2018- Yes [id number] Apply to [facility] 0.05 % 7-22 area(s) 2 ity of cream 00:00: (two) [place] 00 times Medical daily. Branch triamcinolo Yes [id number] Apply to [facility] ne 7-22 affected ity of acetonide 00:00: area(s) 2 [place] 0.1 % cream 00 (two) Medical times Branch daily. ALPRAZolam 2018- Yes [id number] 1mg Take 1 [facility] 1 mg tablet 7-22 tablet by ity of 00:00: mouth 2 [place] (two) Medical times Branch daily. Prn anxiety carvedilol 2018- Yes [id number] 3.125mg Take 1 [facility] 3.125 mg 7-22 tablet by ity of tablet 00:00: mouth 2 (two) Medical times Branch daily with meals. foLIC acid Yes [id number] 1mg Take 1 [facility] 1 mg tablet 7-22 tablet by ity of 00:00: mouth [place] 00 daily. Medical Branch hydrOXYzine Yes [id number] 50mg Take 1 [facility] 50 mg 7-22 tablet by ity of tablet 00:00: mouth 3 (three) Medical times Branch daily as needed for Itching. metFORMIN 2018- Yes [id number] 500mg Take 1 [facility] 500 mg 7-22 tablet by ity of tablet 00:00: mouth 2 (two) Medical times Branch daily with meals. pantoprazol Yes [id number] 40mg Take 1 [facility] e 40 mg EC 7-22 tablet by ity of tablet 00:00: mouth 00 daily. Medical Branch clobetasol Yes [id number] Apply to [facility] 0.05 % 7-22 area(s) 2 ity of cream 00:00: (two) [place] 00 times Medical daily. Branch triamcinolo Yes [id number] Apply to [facility] ne 7-22 affected ity of acetonide 00:00: area(s) 2 [place] 0.1 % cream 00 (two) Medical times Branch daily. ALPRAZolam Yes [id number] 1mg Take 1 [facility] 1 mg tablet 7-22 tablet by ity of 00:00: mouth 2 (two) Medical times Branch daily. Prn anxiety carvedilol 2018- Yes [id number] 3.125mg Take 1 [facility] 3.125 mg 7-22 tablet by ity of tablet 00:00: mouth 2 (two) Medical times Branch daily with meals. foLIC acid 2018-0 Yes [id number] 1mg Take 1 [facility] 1 mg tablet 7-22 tablet by ity of 00:00: mouth [place] 00 daily. Medical Branch furosemide Yes [id number] 40mg Take 1 [facility] 40 mg 7-22 tablet by ity of tablet 00:00: mouth [place] 00 daily. Medical Branch hydrOXYzine Yes [id number] 50mg Take 1 [facility] 50 mg 7-22 tablet by ity of tablet 00:00: mouth 3 [place] 00 (three) Medical times Branch daily as needed for Itching. metFORMIN 2018- Yes [id number] 500mg Take 1 [facility] 500 mg 7-22 tablet by ity of tablet 00:00: mouth 2 [place] 00 (two) Medical times Branch daily with meals. pantoprazol Yes [id number] 40mg Take 1 [facility] e 40 mg EC 7-22 tablet by ity of tablet 00:00: mouth [place] 00 daily. Medical Branch spironolact Yes [id number] 25mg Take 1 [facility] one 25 mg 7-22 tablet by ity o f tablet 00:00: mouth 2 [place] 00 (two) Medical times Branch daily. clobetasol Yes [id number] Apply to [facility] 0.05 % 7-22 area(s) 2 ity of cream 00:00: (two) [place] 00 times Medical daily. Branch triamcinolo Yes [id number] Apply to [facility] ne 7-22 affected ity of acetonide 00:00: area(s) 2 [place] 0.1 % cream 00 (two) Medical times Branch daily. furosemide 2019- No [id number] 40mg Take 1 [facility] 40 mg 7-22 08- tablet by ity of tablet 00:00: 00:00 mouth [place] 00 :00 daily. Medical Branch furosemide 2019- No [id number] 40mg Take 1 [facility] 40 mg 7-22 08- tablet by ity of tablet 00:00: 00:00 mouth [place] 00 :00 daily. Medical Branch spironolact 2019- No [id number] 25mg Take 1 [facility] one 25 mg 7-22 08-07 tablet by ity of tablet 00:00: 00:00 mouth 2 [place] 00 :00 (two) Medical times Branch daily. Pitavastati 2018- Yes 2mg Take 2 mg U nivers n (LIVALO) 6-18 by mouth ity o f 2 mg Tab 16:18: daily. [address] Pitavastati 0 Yes 2mg Take 2 mg U nivers n (LIVALO) 6-18 by mouth ity o f 2 mg Tab 16:18: daily. [address] Pitavast[place] 0 Yes 2mg Take 2 mg U nivers n (LIVALO) 6-18 by mouth ity o f 2 mg Tab 16:18: daily. [address] Pit[place] 0 Yes 2mg Take 2 mg U nivers n (LIVALO) 6-18 by mouth ity o f 2 mg Tab 16:18: daily. [address] [place] 0 Yes 2mg Take 2 mg U nivers n (LIVALO) 6-18 by mouth ity o f 2 mg Tab 16:18: daily. [address] Pit[place] 0 Yes 2mg Take 2 mg U nivers n (LIVALO) 6-18 by mouth ity o f 2 mg Tab 16:18: daily. [address] [place] 0 Yes 2mg Take 2 mg U nivers n (LIVALO) 6-18 by mouth ity o f 2 mg Tab 16:18: daily. [address] [place] 0 Yes 2mg Take 2 mg U nivers n (LIVALO) 6-18 by mouth ity o f 2 mg Tab 16:18: daily. [address] [place] 0 Yes 2mg Take 2 mg U nivers n (LIVALO) 6-18 by mouth ity o f 2 mg Tab 16:18: daily. [address] [place] 0 Yes 2mg Take 2 mg U nivers n (LIVALO) 6-18 by mouth ity o f 2 mg Tab 16:18: daily. [address] [place] 0 Yes 2mg Take 2 mg U nivers n (LIVALO) 6-18 by mouth ity o f 2 mg Tab 16:18: daily. [address] [place] 0 Yes 2mg Take 2 mg U nivers n (LIVALO) 6-18 by mouth ity o f 2 mg Tab 16:18: daily. [place] 51 Medical Branch Pitavastati 2019-0 Yes 2mg Take 2 mg U nivers n (LIVALO) 6-18 by mouth ity o f 2 mg Tab 16:18: daily. [place] [address] Medical Branch traMADOL 2019-0 Yes [id number] 50mg Take 1 Un epifanio (ULTRAM) 50 6-18 tablet by ity of mg tablet 00:00: mouth [place] 00 every 6 Medical (six) Branch hours as needed for Pain (scale 4-6). traMADOL 2019-0 Yes [id number] 50mg Take 1 Un epifanio (ULTRAM) 50 6-18 tablet by ity of mg tablet 00:00: mouth [place] 00 every 6 Medical (six) Branch hours as needed for Pain (scale 4-6). traMADOL 2019-0 Yes [id number] 50mg Take 1 Un epifanio (ULTRAM) 50 6-18 tablet by ity of mg tablet 00:00: mouth [place] 00 every 6 Medical (six) Branch hours as needed for Pain (scale 4-6). traMADOL 2019-0 Yes [id number] 50mg Take 1 Un epifanio (ULTRAM) 50 6-18 tablet by ity of mg tablet 00:00: mouth [place] 00 every 6 Medical (six) Branch hours as needed for Pain (scale 4-6). traMADOL 2019-0 Yes [id number] 50mg Take 1 Un epifanio (ULTRAM) 50 6-18 tablet by ity of mg tablet 00:00: mouth [place] 00 every 6 Medical (six) Branch hours as needed for Pain (scale 4-6). traMADOL 2019-0 Yes [id number] 50mg Take 1 Un epifanio (ULTRAM) 50 6-18 tablet by ity of mg tablet 00:00: mouth [place] 00 every 6 Medical (six) Branch hours as needed for Pain (scale 4-6). traMADOL 2019-0 Yes [id number] 50mg Take 1 Un epifanio (ULTRAM) 50 6-18 tablet by ity of mg tablet 00:00: mouth [place] 00 every 6 Medical (six) Branch hours as needed for Pain (scale 4-6). traMADOL 2019-0 Yes [id number] 50mg Take 1 Un epifanio (ULTRAM) 50 6-18 tablet by ity of mg tablet 00:00: mouth [place] 00 every 6 Medical (six) Branch hours as needed for Pain (scale 4-6). traMADOL 2019-0 Yes [id number] 50mg Take 1 Un epifanio (ULTRAM) 50 6-18 tablet by ity of mg tablet 00:00: mouth [place] 00 every 6 Medical (six) Branch hours as needed for Pain (scale 4-6). traMADOL 2019-0 Yes [id number] 50mg Take 1 Un epifanio (ULTRAM) 50 6-18 tablet by ity of mg tablet 00:00: mouth [place] 00 every 6 Medical (six) Branch hours as needed for Pain (scale 4-6). traMADOL 2019-0 Yes [id number] 50mg Take 1 Un epifanio (ULTRAM) 50 6-18 tablet by ity of mg tablet 00:00: mouth [place] 00 every 6 Medical (six) Branch hours as needed for Pain (scale 4-6). traMADOL 2019-0 Yes [id number] 50mg Take 1 Un epifanio (ULTRAM) 50 6-18 tablet by ity of mg tablet 00:00: mouth [place] 00 every 6 Medical (six) Branch hours as needed for Pain (scale 4-6). traMADOL 2019-0 Yes [id number] 50mg Take 1 Un epifanio (ULTRAM) 50 6-18 tablet by ity of mg tablet 00:00: mouth [place] 00 every 6 Medical (six) Branch hours as needed for Pain (scale 4-6). traMADOL 2019-0 Yes [id number] 50mg Take 1 Un epifanio (ULTRAM) 50 6-18 tablet by ity of mg tablet 00:00: mouth [place] 00 every 6 Medical (six) Branch hours as needed for Pain (scale 4-6). traMADOL 2019-0 Yes [id number] 50mg Take 1 Un epifanio (ULTRAM) 50 6-18 tablet by ity of mg tablet 00:00: mouth [place] 00 every 6 Medical (six) Branch hours as needed for Pain (scale 4-6). traMADOL 2019-0 Yes [id number] 50mg Take 1 Un epifanio (ULTRAM) 50 6-18 tablet by ity of mg tablet 00:00: mouth [place] 00 every 6 Medical (six) Branch hours as needed for Pain (scale 4-6). traMADOL 2019-0 Yes [id number] 50mg Take 1 Un epifanio (ULTRAM) 50 6-18 tablet by ity of mg tablet 00:00: mouth [place] 00 every 6 Medical (six) Branch hours as needed for Pain (scale 4-6). traMADOL 2019- Yes [id number] 50mg Take 1 Un epifanio (ULTRAM) 50 6-18 tablet by ity of mg tablet 00:00: mouth [place] 00 every 6 Medical (six) Branch hours as needed for Pain (scale 4-6). traMADOL 2018- Yes [id number] 50mg Take 1 Un epifanio (ULTRAM) 50 6-18 tablet by ity of mg tablet 00:00: mouth [place] 00 every 6 Medical (six) Branch hours as needed for Pain (scale 4-6). traMADOL Yes [id number] 50mg Take 1 Un epifanio (ULTRAM) 50 6-18 tablet by ity of mg tablet 00:00: mouth [place] 00 every 6 Medical (six) Branch hours as needed for Pain (scale 4-6). traMADOL 2020- No [id number] 50mg Take 1 U nivers (ULTRAM) 50 6-18 05-19 tablet by it y of mg tablet 00:00: 00:00 mouth [place] 00 :00 every 6 Medical (six) Branch hours as needed for Pain (scale 4-6). traMADOL 2018-2020- No [id number] 50mg Take 1 U nivers (ULTRAM) 50 6-18 05-19 tablet by it y of mg tablet 00:00: 00:00 mouth [place] 00 :00 every 6 Medical (six) Branch hours as needed for Pain (scale 4-6). folic acid [id number] Yes 1mg QD Take [address] [facility] (FOLVITE) 1 6-13 by [facility] tablet 00:00: daily . Medic al 00 [place] folic acid 2019-0 Yes 1mg QD Take [address] [facility] (FOLVITE) 1 6-13 by [facility] tablet 00:00: daily . Medic al 00 [place] folic acid 2019-0 Yes 1mg QD Take [address] [facility] (FOLVITE) 1 6-13 by [facility] tablet 00:00: daily . Medic al 00 [place] folic acid 2019-0 Yes 1mg QD Take [address] [facility] (FOLVITE) 1 6-13 by [facility] tablet 00:00: daily . Medic al 00 [place] folic acid 2018- Yes 1mg QD Take [address] [facility] (FOLVITE) 1 6-13 by [facility] tablet 00:00: daily . Medic al [place] lactulose 0 Yes TK [address] [facility] (CHRONULAC) 5-04 PO TID [facility] gram/15 00:00: Medical mL solution 00 [place] lactulose Yes TK [address] [facility] (CHRONULAC) 5-04 PO TID [facility] gram/15 00:00: Medical mL solution 00 [place] lactulose 2018-0 Yes TK [address] [facility] (CHRONULAC) 5-04 PO TID [facility] gram/15 00:00: Medical mL solution 00 [place] lactulose Yes TK [address] [facility] (CHRONULAC) 5-04 PO TID [facility] gram/15 00:00: Medical mL solution 00 [place] lactulose Yes TK [address] [facility] (CHRONULAC) 5-04 PO TID [facility] gram/15 00:00: Medical mL solution 00 [place] blood sugar Yes [id number] Use BID, [facility] diagnostic 4-23 DX E11.9 ity o f (ACCU-CHEK 00:00: (Brand [place] GUIDE) 00 upon Medical strip insurance Branch approval) Lancets Yes [id number] Use BID, U nivers Misc 4-23 DX E11.9 ity of 00:00: (Brand [place] 00 upon Medical insurance Branch approval) Blood-Gluco 2018- Yes [id number] Use BID, [facility] se Meter 4-23 DX E11.9 ity of (ACCU-CHEK 00:00: (Brand [place] GUIDE 00 upon Medical GLUCOSE insurance Branch METER) Mis approval) ACCU-CHEK GUIDE blood sugar 2019- Yes [id number] Use BID, [facility] diagnostic 4-23 DX E11.9 ity o f (ACCU-CHEK 00:00: (Brand [place] GUIDE) 00 upon Medical strip insurance Branch approval) Lancets 2019- Yes [id number] Use BID, U nivers Misc 4-23 DX E11.9 ity of 00:00: (Brand [place] 00 upon Medical insurance Branch approval) Blood-Gluco 2018- Yes [id number] Use BID, [facility] se Meter 4-23 DX E11.9 ity of (ACCU-CHEK 00:00: (Brand [place] GUIDE 00 upon Medical GLUCOSE insurance Branch METER) Misc approval) ACCU-CHEK GUIDE blood sugar 2019-0 Yes [id number] Use BID, [facility] diagnostic 4-23 DX E11.9 ity o f (ACCU-CHEK 00:00: (Brand [place] GUIDE) 00 upon Medical strip insurance Branch approval) Lancets 2019- Yes [id number] Use BID, U nivers Misc 4-23 DX E11.9 ity of 00:00: (Brand [place] 00 upon Medical insurance Branch approval) Blood-Gluco 2019- Yes [id number] Use BID, [facility] se Meter 4-23 DX E11.9 ity of (ACCU-CHEK 00:00: (Brand [place] GUIDE 00 upon Medical GLUCOSE insurance Branch METER) Misc approval) ACCU-CHEK GUIDE blood sugar 2019- Yes [id number] Use BID, [facility] diagnostic 4-23 DX E11.9 ity o f (ACCU-CHEK 00:00: (Brand [place] GUIDE) 00 upon Medical strip insurance Branch approval) Lancets 2019- Yes [id number] Use BID, U nivers Misc -23 DX E11.9 ity of 00:00: (Brand [place] 00 upon Medical insurance Branch approval) Blood-Gluco 2019-0 Yes [id number] Use BID, [facility] se Meter 423 DX E11.9 ity of (ACCU-CHEK 00:00: (Brand [place] GUIDE 00 upon Medical GLUCOSE insurance Branch METER) Misc approval) ACCU-CHEK GUIDE blood sugar 2019-0 Yes [id number] Use BID, [facility] diagnostic 4-23 DX E11.9 ity o f (ACCU-CHEK 00:00: (Brand [place] GUIDE) 00 upon Medical strip insurance Branch approval) Lancets 2019- Yes [id number] Use BID, U nivers Misc 4-23 DX E11.9 ity of 00:00: (Brand [place] 00 upon Medical insurance Branch approval) Blood-Gluco 2019-0 Yes [id number] Use BID, [facility] se Meter 423 DX E11.9 ity of (ACCU-CHEK 00:00: (Brand [place] GUIDE 00 upon Medical GLUCOSE insurance Branch METER) Misc approval) ACCU-CHEK GUIDE blood sugar 2019-0 Yes [id number] Use BID, [facility] diagnostic 4-23 DX E11.9 ity o f (ACCU-CHEK 00:00: (Brand [place] GUIDE) 00 upon Medical strip insurance Branch approval) Lancets 2019- Yes [id number] Use BID, U nivers Misc 4-23 DX E11.9 ity of 00:00: (Brand [place] 00 upon Medical insurance Branch approval) Blood-Gluco 2019- Yes [id number] Use BID, [facility] se Meter 4-23 DX E11.9 ity of (ACCU-CHEK 00:00: (Brand [place] GUIDE 00 upon Medical GLUCOSE insurance Branch METER) Misc approval) ACCU-CHEK GUIDE blood sugar 2019- Yes [id number] Use BID, [facility] diagnostic 4-23 DX E11.9 ity o f (ACCU-CHEK 00:00: (Brand [place] GUIDE) 00 upon Medical strip insurance Branch approval) Lancets Yes [id number] Use BID, U nivers Misc 4-23 DX E11.9 ity of 00:00: (Brand [place] 00 upon Medical insurance Branch approval) Blood-Gluco 2018- Yes [id number] Use BID, Univers se Meter 4-23 DX E11.9 ity of (ACCU-CHEK 00:00: (Brand [place] GUIDE 00 upon Medical GLUCOSE insurance Branch METER) Misc approval) ACCU-CHEK GUIDE blood sugar 2019- Yes [id number] Use BID, [facility] diagnostic 4-23 DX E11.9 ity o f (ACCU-CHEK 00:00: (Brand [place] GUIDE) 00 upon Medical strip insurance Branch approval) Lancets 2019 Yes [id number] Use BID, U nivers Misc 4-23 DX E11.9 ity of 00:00: (Brand [place] 00 upon Medical insurance Branch approval) Blood-Gluco 2019- Yes [id number] Use BID, Univers se Meter 4-23 DX E11.9 ity of (ACCU-CHEK 00:00: (Brand [place] GUIDE 00 upon Medical GLUCOSE insurance Branch METER) Misc approval) ACCU-CHEK GUIDE blood sugar 2019- Yes [id number] Use BID, [facility] diagnostic 4-23 DX E11.9 ity o f (ACCU-CHEK 00:00: (Brand [place] GUIDE) 00 upon Medical strip insurance Branch approval) Lancets 2019 Yes [id number] Use BID, U nivers Misc 4-23 DX E11.9 ity of 00:00: (Brand [place] 00 upon Medical insurance Branch approval) Blood-Gluco 2019-0 Yes [id number] Use BID, [facility] se Meter 423 DX E11.9 ity of (ACCU-CHEK 00:00: (Brand [place] GUIDE 00 upon Medical GLUCOSE insurance Branch METER) Misc approval) ACCU-CHEK GUIDE blood sugar 2019- Yes [id number] Use BID, [facility] diagnostic 4-23 DX E11.9 ity o f (ACCU-CHEK 00:00: (Brand [place] GUIDE) 00 upon Medical strip insurance Branch approval) Lancets 2019- Yes [id number] Use BID, U nivers Misc 4-23 DX E11.9 ity of 00:00: (Brand [place] 00 upon Medical insurance Branch approval) Blood-Gluco 2019- Yes [id number] Use BID, [facility] se Meter 23 DX E11.9 ity of (ACCU-CHEK 00:00: (Brand [place] GUIDE 00 upon Medical GLUCOSE insurance Branch METER) Misc approval) ACCU-CHEK GUIDE blood sugar 2018- Yes [id number] Use BID, Univers diagnostic 23 DX E11.9 ity o f (ACCU-CHEK 00:00: (Brand [place] GUIDE) 00 upon Medical strip insurance Branch approval) Lancets 2019- Yes [id number] Use BID, U nivers Misc 23 DX E11.9 ity of 00:00: (Brand [place] 00 upon Medical insurance Branch approval) Blood-Gluco 2019- Yes [id number] Use BID, Univers se Meter 23 DX E11.9 ity of (ACCU-CHEK 00:00: (Brand [place] GUIDE 00 upon Medical GLUCOSE insurance Branch METER) Misc approval) ACCU-CHEK GUIDE Blood-Gluco 2019-0 Yes [id number] Use BID, Univers se Meter 4-23 DX E11.9 ity of (ACCU-CHEK 00:00: (Brand [place] GUIDE 00 upon Medical GLUCOSE insurance Branch METER) Misc approval) ACCU-CHEK GUIDE Blood-Gluco 2019-0 Yes [id number] Use BID, Univers se Meter 4-23 DX E11.9 ity of (ACCU-CHEK 00:00: (Brand [place] GUIDE 00 upon Medical GLUCOSE insurance Branch METER) Misc approval) ACCU-CHEK GUIDE Blood-Gluco 2018- Yes [id number] Use BID, Univers se Meter 4-23 DX E11.9 ity of (ACCU-CHEK 00:00: (Brand [place] GUIDE 00 upon Medical GLUCOSE insurance Branch METER) Misc approval) ACCU-CHEK GUIDE Blood-Gluco 2018- Yes [id number] Use BID, Univers se Meter -23 DX E11.9 ity of (ACCU-CHEK 00:00: (Brand [place] GUIDE 00 upon Medical GLUCOSE insurance Branch METER) Misc approval) ACCU-CHEK GUIDE Blood-Gluco 2018- Yes [id number] Use BID, Univers se Meter -23 DX E11.9 ity of (ACCU-CHEK 00:00: (Brand [place] GUIDE 00 upon Medical GLUCOSE insurance Branch METER) Misc approval) ACCU-CHEK GUIDE Blood-Gluco 2018- Yes [id number] Use BID, Univers se Meter -23 DX E11.9 ity of (ACCU-CHEK 00:00: (Brand [place] GUIDE 00 upon Medical GLUCOSE insurance Branch METER) Misc approval) ACCU-CHEK GUIDE Blood-Gluco 2018- Yes [id number] Use BID, Univers se Meter -23 DX E11.9 ity of (ACCU-CHEK 00:00: (Brand [place] GUIDE 00 upon Medical GLUCOSE insurance Branch METER) Misc approval) ACCU-CHEK GUIDE Blood-Gluco 2018- Yes [id number] Use BID, Univers se Meter -23 DX E11.9 ity of (ACCU-CHEK 00:00: (Brand [place] GUIDE 00 upon Medical GLUCOSE insurance Branch METER) Misc approval) ACCU-CHEK GUIDE blood sugar 2018- Yes [id number] Use BID, Univers diagnostic 4-23 DX E11.9 ity o f (ACCU-CHEK 00:00: (Brand [place] GUIDE) 00 upon Medical strip insurance Branch approval) Lancets 2019- Yes [id number] Use BID, U nivers Misc -23 DX E11.9 ity of 00:00: (Brand [place] 00 upon Medical insurance Branch approval) Blood-Gluco 2018- Yes [id number] Use BID, Univers se Meter 4-23 DX E11.9 ity of (ACCU-CHEK 00:00: (Brand [place] GUIDE 00 upon Medical GLUCOSE insurance Branch METER) Misc approval) ACCU-CHEK GUIDE Blood-Gluco 2018-0 2020- No [id number] Use BID, Univers se Meter 09-18 DX E11.9 ity of (ACCU-CHEK 00:00: 00:00 [place] :00 [place] Medical GLUCOSE insurance Branch METER) Misc approval) ACCU-CHEK GUIDE Blood-Gluco 2018-2020- No [id number] Use BID, Univers se Meter 09-18 DX E11.9 ity of (ACCU-CHEK 00:00: 00:00 [place] :00 [place] Medical GLUCOSE insurance Branch METER) Misc approval) ACCU-CHEK GUIDE lactulose 2019-0 Yes [id number] 15mL Take 15 mL Univers 10 gram/15 4-08 by mouth 3 ity of mL solution 00:00: (three) [place] 00 times Medical daily. Branch lactulose 2019-0 Yes [id number] 15mL Take 15 mL Univers 10 gram/15 4-08 by mouth 3 ity of mL solution 00:00: (three) [place] 00 times Medical daily. Branch lactulose 2019-0 Yes [id number] 15mL Take 15 mL Univers 10 gram/15 4-08 by mouth 3 ity of mL solution 00:00: (three) [place] 00 times Medical daily. Branch lactulose 2019-0 Yes [id number] 15mL Take 15 mL Univers 10 gram/15 4-08 by mouth 3 ity of mL solution 00:00: (three) [place] 00 times Medical daily. Branch lactulose 2019-0 Yes [id number] 15mL Take 15 mL [facility] 10 gram/15 4-08 by mouth 3 ity of mL solution 00:00: (three) [place] 00 times Medical daily. Branch lactulose 2019-0 Yes [id number] 15mL Take 15 mL [facility] 10 gram/15 4-08 by mouth 3 ity of mL solution 00:00: (three) [place] 00 times Medical daily. Branch lactulose 2019-0 Yes [id number] 15mL Take 15 mL [facility] 10 gram/15 4-08 by mouth 3 ity of mL solution 00:00: (three) [place] 00 times Medical daily. Branch lactulose 2019-0 Yes [id number] 15mL Take 15 mL [facility] 10 gram/15 4-08 by mouth 3 ity of mL solution 00:00: (three) [place] 00 times Medical daily. Branch lactulose 2019-0 Yes [id number] 15mL Take 15 mL [facility] 10 gram/15 4-08 by mouth 3 ity of mL solution 00:00: (three) [place] 00 times Medical daily. Branch lactulose 2019-0 Yes [id number] 15mL Take 15 mL [facility] 10 gram/15 4-08 by mouth 3 ity of mL solution 00:00: (three) [place] 00 times Medical daily. Branch lactulose 2019-0 Yes [id number] 15mL Take 15 mL [facility] 10 gram/15 4-08 by mouth 3 ity of mL solution 00:00: (three) [place] 00 times Medical daily. Branch lactulose 2019-0 Yes [id number] 15mL Take 15 mL [facility] 10 gram/15 4-08 by mouth 3 ity of mL solution 00:00: (three) [place] 00 times Medical daily. Branch lactulose 2019-0 Yes [id number] 15mL Take 15 mL [facility] 10 gram/15 4-08 by mouth 3 ity of mL solution 00:00: (three) [place] 00 times Medical daily. Branch furosemide 2019-0 Yes [id number] 40mg Take 1 [facility] 40 mg 2-12 tablet by ity of tablet 00:00: mouth [place] 00 every Medical morning Branch and evening. furosemide 2019-0 Yes [id number] 40mg Take 1 [facility] 40 mg 2-12 tablet by ity of tablet 00:00: mouth [place] 00 every Medical morning Branch and evening. furosemide 2019-0 Yes [id number] 40mg Take 1 [facility] 40 mg 2-12 tablet by ity of tablet 00:00: mouth [place] 00 every Medical morning Branch and evening. furosemide 2019-0 Yes [id number] 40mg Take 1 [facility] 40 mg 2-12 tablet by ity of tablet 00:00: mouth [place] 00 every Medical morning Branch and evening. furosemide 2019-0 Yes [id number] 40mg Take 1 [facility] 40 mg 2-12 tablet by ity of tablet 00:00: mouth [place] 00 every Medical morning Branch and evening. furosemide 2019-0 Yes [id number] 40mg Take 1 [facility] 40 mg 2-12 tablet by ity of tablet 00:00: mouth [place] 00 every Medical morning Branch and evening. furosemide 2019-0 Yes [id number] 40mg Take 1 [facility] 40 mg 2-12 tablet by ity of tablet 00:00: mouth [place] 00 every Medical morning Branch and evening. furosemide 2019-0 Yes [id number] 40mg Take 1 [facility] 40 mg 2-12 tablet by ity of tablet 00:00: mouth [place] 00 every Medical morning Branch and evening. furosemide 2019-0 Yes [id number] 40mg Take 1 [facility] 40 mg 2-12 tablet by ity of tablet 00:00: mouth [place] 00 every Medical morning Branch and evening. furosemide 2019-0 Yes [id number] 40mg Take 1 [facility] 40 mg 2-12 tablet by ity of tablet 00:00: mouth [place] 00 every Medical morning Branch and evening. furosemide 2019-0 Yes [id number] 40mg Take 1 [facility] 40 mg 2-12 tablet by ity of tablet 00:00: mouth [place] 00 every Medical morning Branch and evening. furosemide 2019-0 Yes [id number] 40mg Take 1 [facility] 40 mg 2-12 tablet by ity of tablet 00:00: mouth [place] 00 every Medical morning Branch and evening. furosemide 2019-0 Yes [id number] 40mg Take 1 [facility] 40 mg 2-12 tablet by ity of tablet 00:00: mouth [place] 00 every Medical morning Branch and evening. metFORMIN 2019-0 2021- No 500mg Take [address] [facility] [address] [facility] (GLUCOPHAGE 2-12 04-06 [facility] ) 500 MG 00:00: 00:00 mouth 2 Medic al tablet 00 :00 (two) Center times daily with breakfast and dinner . lisinopril 2019-0 Yes [id number] 20mg Take 1 [facility] 20 mg 2-06 tablet by ity of tablet 00:00: mouth [place] 00 daily. Medical Branch lisinopril 2019-0 Yes [id number] 20mg Take 1 [facility] 20 mg 2-06 tablet by ity of tablet 00:00: mouth [place] 00 daily. Medical Branch lisinopril 2019-0 Yes [id number] 20mg Take 1 [facility] 20 mg 2-06 tablet by ity of tablet 00:00: mouth [place] 00 daily. Medical Branch lisinopril 2019-0 Yes [id number] 20mg Take 1 [facility] 20 mg 2-06 tablet by ity of tablet 00:00: mouth [place] 00 daily. Medical Branch lisinopril 2019-0 Yes [id number] 20mg Take 1 [facility] 20 mg 2-06 tablet by ity of tablet 00:00: mouth [place] 00 [facility]. [facility] lisinopril 2019-0 Yes [id number] 20mg Take 1 [facility] 20 mg 2-06 tablet by ity of tablet 00:00: mouth [place] 00 daily. [facility] lisinopril 2019-0 Yes [id number] 20mg Take 1 [facility] 20 mg 2-06 tablet by ity of tablet 00:00: mouth [place] 00 daily. [facility] lisinopril 2018-0 Yes [id number] 20mg Take 1 [facility] 20 mg 2-06 tablet by ity of tablet 00:00: mouth [place] 00 daily. [facility] lisinopril 2018-0 Yes [id number] 20mg Take 1 [facility] 20 mg 2-06 tablet by ity of tablet 00:00: mouth [place] 00 daily. [facility] lisinopril 2018-0 Yes [id number] 20mg Take 1 [facility] 20 mg 2-06 tablet by ity of tablet 00:00: mouth [place] 00 daily. [facility] lisinopril 2018-0 Yes [id number] 20mg Take 1 [facility] 20 mg 2-06 tablet by ity of tablet 00:00: mouth [place] 00 daily. [facility] lisinopril 2018-0 Yes [id number] 20mg Take 1 [facility] 20 mg 2-06 tablet by ity of tablet 00:00: mouth [place] 00 daily. [facility] lisinopril 2018-0 Yes [id number] 20mg Take 1 [facility] 20 mg 2-06 tablet by ity of tablet 00:00: mouth [place] 00 daily. [facility] carvedilol 2018-0 Yes 6.25mg Take 6.[address] [facility] (COREG) 2-06 [facility] 3.125 MG 00:00: mouth 2 Medica l tablet 00 (two) Center times daily with breakfast and dinner . lisinopril 2018-0 Yes 20mg QD Take [address] [facility] (PRINIVIL,Z 2-06 by mouth [facility] ESTRIL) 20 00:00: daily . Medi jeevan MG tablet 00 Center carvedilol 2018-0 Yes 6.25mg Take 6.[address] [facility] (COREG) 2-06 [facility] 3.125 MG 00:00: mouth 2 Medica l tablet 00 (two) Center times daily with breakfast and dinner . lisinopril 2018-0 Yes 20mg QD Take [address] (PRINIVIL,Z 2-06 by mouth [facility] ESTRIL) 20 00:00: daily . Medi jeevan MG tablet 00 Center carvedilol 2019-0 Yes 6.25mg Take 6.[address] [facility] (COREG) 2-06 [facility] 3.125 MG 00:00: mouth 2 Medica l tablet 00 (two) Center times daily with breakfast and dinner . lisinopril 2019-0 Yes 20mg QD Take [address] (PRINIVIL,Z 2-06 by mouth [facility] ESTRIL) 20 00:00: daily . Medi jeevan MG tablet 00 Center carvedilol 2019-0 Yes 6.25mg Take 6.[address] [facility] (COREG) 2-06 [facility] 3.125 MG 00:00: mouth 2 Medica l tablet 00 (two) Center times daily with breakfast and dinner . lisinopril 2019-0 Yes 20mg QD Take [address] (PRINIVIL,Z 2-06 by mouth [facility] ESTRIL) 20 00:00: daily . Medi jeevan MG tablet 00 Center carvedilol 0 Yes 6.25mg Take 6.[address] [facility] (COREG) 2-06 [facility] 3.125 MG 00:00: mouth 2 Medica l tablet 00 (two) Center times daily with breakfast and dinner . lisinopril 2019-0 Yes 20mg QD Take [address] (PRINIVIL,Z 2-06 by mouth [facility] ESTRIL) 20 00:00: daily . Medi jeevan MG tablet 00 Center pantoprazol 2019-0 Yes 40mg QD Take [address] [facility] 1-09 [facility] (PROTONIX) 00:00: daily . Medi jeevan 40 MG 00 Center tablet pantoprazol 2019-0 Yes 40mg QD Take [address] [facility] 1-09 [facility] (PROTONIX) 00:00: daily . Medi jeevan 40 MG 00 Center tablet pantoprazol 2019-0 Yes 40mg QD Take [address] [facility] 1-09 [facility] (PROTONIX) 00:00: daily . Medi jeevan 40 MG 00 Center tablet pantoprazol 2019-0 Yes 40mg QD Take [address] [facility] 1-09 by [facility] (PROTONIX) 00:00: daily . Medi jeevan 40 MG 00 Center tablet pantoprazol 2019-0 Yes 40mg QD Take [address] [facility] 06-06 by [facility] (PROTONIX) 00:00: daily . [facility] jeevan 40 MG 00 [place] tablet hydrOXYzine 2017-05 Yes 50mg Take [address] [facility] (ATARAX) 50 1-14 by mouth [facility] MG tablet 00:00: as needed Med ical 00 . [place] hydrOXYzine 2017-05 Yes 50mg Take [address] [facility] (ATARAX) 50 1-14 by mouth [facility] MG tablet 00:00: as needed Med ical 00 . [place] hydrOXYzine 2017-05 Yes 50mg Take [address] [facility] (ATARAX) 50 1-14 by mouth [facility] MG tablet 00:00: as needed Med ical 00 . [place] hydrOXYzine 2017-05 Yes 50mg Take [address] [facility] (ATARAX) 50 1-14 by mouth [facility] MG tablet 00:00: as needed Med ical 00 . [place] hydrOXYzine 2017-05 Yes 50mg Take [address] [facility] (ATARAX) 50 1-14 by mouth Luke s MG tablet 00:00: as needed Med ical 00 . [place] traMADol Yes Recurrent 50mg Take 1 [facility] [...] for Pain. No known No Univers medications [facility] No known No Univers medications [facility] Immunizations Ordered Filled Immunization Date Status Comments [facility] e Immunization Name Name SARS-COV-2 COVID-19 2021-02-05 Completed Unive rsity of PFIZER VACCINE 00:00:00 [facility] SARS-COV-2 COVID-19 2021-02-05 Completed Unive rsity of PFIZER VACCINE 00:00:00 [facility] SARS-COV-2 COVID-19 2021-02-05 Completed Unive rsity of PFIZER VACCINE 00:00:00 [facility] SARS-COV-2 COVID-19 2021-02-05 Completed Unive rsity of PFIZER VACCINE 00:00:00 [facility] SARS-COV-2 COVID-19 2021-02-05 Completed Unive rsity of PFIZER VACCINE 00:00:00 [facility] SARS-COV-2 COVID-19 2021-02-05 Completed Unive rsity of PFIZER VACCINE 00:00:00 [facility] SARS-COV-2 COVID-19 2021-02-05 Completed Unive rsity of PFIZER VACCINE 00:00:00 [facility] Covid-19 Vaccine 2020-07-19 [facility] PF [facility] IM ([id number]) Influenza 2020-06-[address] [facility] Antibiotic Free PF 00:00:00 [facility] IM ([id number]) Influenza 2020-06-[address] [facility] Antibiotic Free PF 00:00:00 [facility] Center IM ([id number]) Influenza 2020-06-[address] [facility] Antibiotic Free PF 00:00:00 [facility] IM ([id number]) Influenza 2020-06-[address] [facility] Antibiotic Free PF 00:00:00 [facility] Center IM ([id number]) Pneumococcal 2018-10-[address] [facility] Conjugate (Prevnar) 00:00:00 [facility] 13-Valent Pneumococcal 2018-10-[address] [facility] Conjugate (Prevnar) 00:00:00 [facility] 13-Valent Pneumococcal 2018-10-[address] [facility] Conjugate (Prevnar) 00:00:00 Medic al Center 13-Valent Pneumococcal 2018-10-[address] [facility] Conjugate (Prevnar) 00:00:00 Medic al Center 13-Valent Pneumococcal 2018-10-[address] [facility] Conjugate (Prevnar) 00:00:00 [facility] 13-Valent Influenza Virus 2018-04-11 Completed Universit y of Vaccine Quad IM 3+ 00:00:00 [facility] Influenza Virus 2018-04-11 Completed Universit y of Vaccine Quad IM 3+ 00:00:00 [facility] Influenza Virus 2018-04-11 Completed Universit y of Vaccine Quad IM 3+ 00:00:00 [facility] Influenza Virus 2018-04-11 Completed Universit y of Vaccine Quad IM 3+ 00:00:00 [facility] Influenza Virus 2018-04-11 Completed Universit y of Vaccine Quad IM 3+ 00:00:00 [facility] Influenza Virus 2018-04-11 Completed Universit y of Vaccine Quad IM 3+ 00:00:00 [facility] Influenza Virus 2018-04-11 Completed Universit y of Vaccine Quad IM 3+ 00:00:00 [facility] Influenza Virus 2018-04-11 Completed Universit y of Vaccine Quad IM 3+ 00:00:00 [facility] Influenza Virus 2018-04-11 Completed Universit y of Vaccine Quad IM 3+ 00:00:00 [facility] Influenza Virus 2018-04-11 Completed Universit y of Vaccine Quad IM 3+ 00:00:00 [facility] Influenza Virus 2018-04-11 Completed Universit y of Vaccine Quad IM 3+ 00:00:00 [facility] Influenza Virus 2018-04-11 Completed Universit y of Vaccine Quad IM 3+ 00:00:00 [facility] Influenza Virus 2018-04-11 Completed Universit y of Vaccine Quad IM 3+ 00:00:00 [facility] Influenza Virus 2018-04-11 Completed Universit y of Vaccine Quad IM 3+ 00:00:00 [facility] Influenza Virus 2018-04-11 Completed Universit y of Vaccine Quad IM 3+ 00:00:00 [facility] Influenza Virus 2018-04-11 Completed Universit y of Vaccine Quad IM 3+ 00:00:00 [facility] Influenza Virus 2018-04-11 Completed Universit y of Vaccine Quad IM 3+ 00:00:00 [facility] Influenza Virus 2018-04-11 Completed Universit y of Vaccine Quad IM 3+ 00:00:00 [facility] Influenza Virus 2018-04-11 Completed Universit y of Vaccine Quad IM 3+ 00:00:00 [facility] Influenza Virus 2018-04-11 Completed Universit y of Vaccine Quad IM 3+ 00:00:00 [facility] Influenza Virus 2018-04-11 Completed Universit y of Vaccine Quad IM 3+ 00:00:00 [facility] Influenza Virus 2018-04-11 Completed Universit y of Vaccine Quad IM 3+ 00:00:00 [facility] Influenza Virus 2018-04-11 Completed Universit y of Vaccine Quad IM 3+ 00:00:00 [facility] Influenza Virus 2018-04-11 Completed Universit y of Vaccine Quad IM 3+ 00:00:00 [facility] Influenza Virus 2018-04-11 Completed Universit y of Vaccine Quad IM 3+ 00:00:00 [facility] Influenza Virus 2018-04-11 Completed Universit y of Vaccine Quad IM 3+ 00:00:00 [facility] Influenza Virus 2018-04-11 Completed Universit y of Vaccine Quad IM 3+ 00:00:00 [facility] Influenza Virus 2018-04-11 Completed Universit y of Vaccine Quad IM 3+ 00:00:00 [facility] Influenza Virus 2018-04-11 Completed Universit y of Vaccine Quad IM 3+ 00:00:00 [facility] Influenza Virus 2018-04-11 Completed Universit y of Vaccine Quad IM 3+ 00:00:00 [facility] Influenza Virus 2018-04-11 Completed Universit y of Vaccine Quad IM 3+ 00:00:00 [facility] Influenza Four-QIV 2018-04-[address] [facility] PF 3+YR IM 00:00:00 [facility] Influenza Four-QIV 2018-04-[address] [facility] PF 3+YR IM 00:00:00 [facility] Influenza Four-QIV 2018-04-[address] [facility] PF 3+YR IM 00:00:00 [facility] Influenza Four-QIV 2018-04-[address] [facility] PF 3+YR IM 00:00:00 [facility] Influenza Four-QIV 2018-04-[address] [facility] PF 3+YR IM 00:00:00 [facility] Td 2016-09-18 Completed University of 00:00:00 [facility] Td 2016-09-18 Completed University of 00:00:00 [facility] Td 2016-09-18 Completed University of 00:00:00 [facility] Td 2016-09-18 Completed University of 00:00:00 [facility] Td 2016-09-18 Completed University of 00:00:00 [facility] Td 2016-09-18 Completed University of 00:00:00 [facility] Td 2016-09-18 Completed University of 00:00:00 [facility] Td 2016-09-18 Completed University of 00:00:00 [place] [...] Branch Td 2016-09-18 Completed University of 00:00:00 [place] [facility] Td 2016-09-18 Completed University of 00:00:00 [place] [facility] Td 2016-09-18 Completed University of 00:00:00 [place] [facility] Td 7+ years, 2016-09-[address] [facility] (TDVAX) 2 Lf tetaus 00:00:00 Medic al Center toxoid preservative free Td 7+ years, 2016-09-[address] [facility] (TDVAX) 2 Lf 00:00:00 [facility] Cent er tetanus toxoid preservative free Td 7+ years, 2016-09-[address] [facility] (TDVAX) 2 Lf 00:00:00 Medical Cent er tetanus toxoid preservative free Td 7+ years, 2016-09-[address] [facility] (TDVAX) 2 Lf 00:00:00 Medical Cent er tetanus toxoid preservative free Td 7+ years, 2016-09-[address] [facility] (TDVAX) 2 Lf 00:00:00 Medical Cent er tetanus toxoid preservative free Vital Signs Vital Name Observation Time Observation Value Comments Source HEIGHT 2019-12-24 167.6 cm 00:00:00 WEIGHT 2019-12-24 103 kg 00:00:00 Systolic blood 2021-12-26 150 mm[Hg] [place] of pressure 20:38:00 [facility] Diastolic blood 2021-12-26 79 mm[Hg] [place] o f pressure 20:38:00 [facility] Heart rate 2021-12-26 104 /min [facility] 20:38:00 [facility] Body temperature 2021-12-26 38.06 Corrina [facility] 20:38:00 [facility] Respiratory rate 2021-12-26 18 /min [facility] 20:38:00 [facility] Body height 2021-12-26 167.6 cm [facility] 20:38:00 [facility] Body weight 2021-12-26 108.863 kg [facility] 20:38:00 [facility] BMI 2021-12-26 38.74 kg/m2 [facility] 20:38:00 [facility] Oxygen saturation 2021-12-26 99 /min [facility] Arterial blood 20:38:00 [facility] by Pulse oximetry [place] HEIGHT 2021-12-22 167.6 cm 10:36:00 WEIGHT 2021-12-22 [...] 2021-04-01 119 mm[Hg] University of pressure 20:00:00 [facility] Diastolic blood 2021-04-01 65 mm[Hg] [place] o f pressure 20:00:00 [facility] Heart rate 2021-04-01 57 /min University 20:00:00 [facility] Respiratory rate 2021-04-01 16 /min University 20:00:00 [facility] Oxygen saturation 2021-04-01 100 /min Simultaneous [facility] in Arterial blood 20:00:00 filing. User may [facility] by Pulse oximetry not have seen Branch previous data. Body temperature 2021-04-01 36.22 Corrina University of 18:07:00 [facility] Body height 2021-04-01 166 cm University 18:07:00 [facility] Body weight 2021-04-01 104.327 kg University of 18:07:00 [facility] BMI 2021-04-01 37.86 kg/m2 University of 18:07:00 [facility] HEIGHT 2021-03-12 167.6 cm 07:20:00 WEIGHT 2021-03-12 [...] 2020-08-19 132 mm[Hg] University of pressure 14:00:00 [facility] Diastolic blood 2020-08-19 77 mm[Hg] University o f pressure 14:00:00 [facility] Heart rate 2020-08-19 71 /min University 14:00:00 [facility] Respiratory rate 2020-08-19 18 /min University of 14:00:00 [facility] Oxygen saturation 2020-08-19 99 /min [facility] in Arterial blood 14:00:00 [facility] by Pulse oximetry [place] Body temperature 2020-08-19 36.94 Corrina University of 12:32:00 [facility] Body weight 2020-08-19 106.142 kg University of 12:32:00 [facility] BMI 2020-08-19 37.77 kg/m2 University of 12:32:00 [facility] Systolic blood 2020-08-19 132 mm[Hg] University of pressure 14:00:00 [facility] Diastolic blood 2020-08-19 77 mm[Hg] University o f pressure 14:00:00 [facility] Branch Heart rate 2020-08-19 71 /min University of 14:00:00 [facility] Branch Respiratory rate 2020-08-19 18 /min University of 14:00:00 [facility] Branch Oxygen saturation 2020-08-19 99 /min University of in Arterial blood 14:00:00 [place] [facility] by Pulse oximetry Branch Body temperature 2020-08-19 36.94 Corrina University of 12:32:00 [facility] Branch Body weight 2020-08-19 106.142 kg University of 12:32:00 [facility] BMI 2020-08-19 37.77 kg/m2 University of 12:32:00 [facility] Branch Systolic blood 2020-06-26 120 mm[Hg] University of pressure 03:00:00 [facility] Branch Diastolic blood 2020-06-26 103 mm[Hg] University o f pressure 03:00:00 [facility] Branch Heart rate 2020-06-26 83 /min University of 03:00:00 [facility] Branch Respiratory rate 2020-06-26 20 /min University of 03:00:00 [facility] Branch Oxygen saturation 2020-06-26 99 /min University of in Arterial blood 03:00:00 [place] [facility] by Pulse oximetry Branch Body temperature 2020-06-25 36.44 Corrina University of 23:03:00 [facility] Body height 2020-06-25 167.6 cm University of 23:03:00 [facility] Body weight 2020-06-25 105.235 kg University of 23:03:00 [facility] BMI 2020-06-25 37.45 kg/m2 University of 23:03:00 [facility] Branch Systolic blood 2020-06-26 120 mm[Hg] University of pressure 03:00:00 [place] [facility] Branch Diastolic blood 2020-06-26 103 mm[Hg] University o f pressure 03:00:00 [facility] Heart rate 2020-06-26 83 /min University of 03:00:00 [facility] Respiratory rate 2020-06-26 20 /min University of 03:00:00 [facility] Oxygen saturation 2020-06-26 99 /min University of in Arterial blood 03:00:00 [place] [facility] by Pulse oximetry Branch Body temperature 2020-06-25 36.44 Corrina University of 23:03:00 [facility] Body height 2020-06-25 167.6 cm University of 23:03:00 [facility] Body weight 2020-06-25 105.235 kg University of 23:03:00 [facility] BMI 2020-06-25 37.45 kg/m2 University of 23:03:00 [facility] HEIGHT 2020-03-13 167.6 cm 10:38:00 WEIGHT 2020-03-13 108.41 kg 10:38:00 HEIGHT 2020-03-13 167.6 cm 10:38:00 WEIGHT 2020-03-13 108.41 kg 10:38:00 HEIGHT 2019-12-24 167.6 cm 00:00:00 WEIGHT 2019-12-24 103 kg 00:00:00 Systolic blood 2019-01-21 131 mm[Hg] University of pressure 21:03:00 [facility] Diastolic blood 2019-01-21 79 mm[Hg] University o f pressure 21:03:00 [facility] Heart rate 2019-01-21 73 /min University 21:03:00 [facility] Body temperature 2019-01-21 37.06 Corrina University of 21:03:00 [facility] Respiratory rate 2019-01-21 18 /min University of 21:03:00 [facility] Body weight 2019-01-21 103.103 kg University of 21:03:00 [facility] BMI 2019-01-21 36.69 kg/m2 University of 21:03:00 [facility] Oxygen saturation 2019-01-21 98 /min [facility] in Arterial blood 21:03:00 [facility] Pulse oximetry [place] Systolic blood 2019-01-21 131 mm[Hg] University of pressure 21:03:00 [facility] Diastolic blood 2019-01-21 79 mm[Hg] University o f pressure 21:03:00 [facility] Heart rate 2019-01-21 73 /min University of 21:03:00 [facility] Body temperature 2019-01-21 37.06 Corrina University of 21:03:00 [facility] Respiratory rate 2019-01-21 18 /min University of 21:03:00 [facility] Body weight 2019-01-21 103.103 kg University of 21:03:00 [facility] BMI 2019-01-21 36.69 kg/m2 University of 21:03:00 [facility] Oxygen saturation 2019-01-21 98 /min [facility] in Arterial blood 21:03:00 [facility] by Pulse oximetry Branch Systolic blood 2021-12-22 [...] 2021-12-[address] [facility] 10:36:00 [facility] BMI 2021-12-22 39.92 kg/m2 [facility] 10:36:00 [facility] Oxygen saturation 2021-12-22 98 /min [facility] Arterial blood 10:36:00 Medical Ce nter by Pulse oximetry Systolic blood 2021-03-12 107 mm[Hg] [facility] pressure 14:30:00 Medical Center Diastolic blood 2021-03-12 58 mm[Hg] [facility] pressure 14:30:00 Medical Center Heart rate 2021-03-12 61 /min [facility] 14:30:00 Medical Center Respiratory rate 2021-03-12 18 /min [facility] 13:30:00 [facility] Oxygen saturation 2021-03-12 94 /min [facility] in Arterial blood 13:30:00 Medical Ce nter by Pulse oximetry Body temperature 2021-03-[address] [facility] 12:02:00 [facility] Body height 2021-03-[address] [facility] 07:20:00 [facility] Body weight 2021-03-[address] [facility] 07:20:00 [facility] BMI 2021-03-12 36.32 kg/m2 [facility] 07:20:00 Medical Center Procedures Procedure Date / Time Performing Clinician Source Performed CT CHEST WITHOUT IV 2022-05-18 12:02:00 Amberly Washington [facility] CONTRAST Center MR ABDOMEN WITH & WITHOUT 2022-05-18 11:40:00 Amberly Washington [facility] IV CONTRAST Center ALPHA FETOPROTEIN (AFP), 2022-05-18 09:45:00 Amberly Washington [facility] TUMOR MARKER Center BASIC METABOLIC PANEL 2022-05-18 09:45:00 Amberly Washington [facility] CBC W/PLT COUNT & AUTO 2022-05-18 09:45:00 Amberly Washington [facility] DIFFERENTIAL Center HEPATIC FUNCTION PANEL 2022-05-18 09:45:[address] [facility] PROTHROMBIN TIME/INR 2022-05-18 09:45:00 Amberly Washington I [facility] CBC W/PLT COUNT & AUTO 2022-05-18 09:45:00 Amberly Washington [facility] DIFFERENTIAL Center CBC W/PLT COUNT & AUTO 2022-01-07 14:53:[address] [facility] DIFFERENTIAL [place] IRON, TIBC, % SAT. 2022-01-07 14:53:00 [facility] (WITHOUT FERRITIN) Center FERRITIN 2022-01-07 14:53:[address] [facility] PLATELET ESTIMATION 2022-01-07 14:53:[address] [facility] MR BRAIN WITH & WITHOUT IV 2022-01-04 14:14:00 Amberly Washington [facility] CONTRAST Center CT HEAD WO CONTRAST 2021-12-26 22:35:08 Felisha Quintana [facility] BASIC METABOLIC PANEL (NA, 2021-12-26 21:33:00 Felisha Quintana [facility] K, CL, CO2, GLUCOSE, BUN, Medica l Branch CREATININE, CA) CBC WITH DIFF 2021-12-26 21:33:00 Felisha Quintana [place] [facility] URINALYSIS 2021-12-26 21:33:00 Felisha Quintana [place] [facility] Medical Branch COVID-19 (ID NOW RAPID 2021-12-26 20:48:00 Felisha Quintana [facility] TESTING) Medical Branch CONSENT/REFUSAL FOR 2021-12-26 20:32:58 Doctor Unassigned, [facility] DIAGNOSIS AND TREATMENT [place] [facility] BASIC METABOLIC PANEL 2021-12-22 12:08:00 Amberly Washington [facility] CBC W/PLT COUNT & AUTO 2021-12-22 12:08:00 Amberly Washington [facility] HEPATIC FUNCTION PANEL 2021-12-22 12:08:[address] [facility] PROTHROMBIN TIME/INR 2021-12-22 12:08:00 Amberly Washington [facility] CBC W/PLT COUNT & AUTO 2021-12-22 12:08:00 Amberly Washington [facility] DIFFERENTIAL [place] ALPHA FETOPROTEIN (AFP), 2021-12-06 13:43:00 Amberly Washington [facility] TUMOR MARKER Center BASIC METABOLIC PANEL 2021-12-06 13:43:00 Amberly Washington [facility] CBC W/PLT COUNT & AUTO 2021-12-06 13:43:00 Amberly Washington [facility] HEPATIC FUNCTION PANEL 2021-12-06 13:43:[address] [facility] PROTHROMBIN TIME/INR 2021-12-06 13:43:00 Amberly Washington [facility] CBC W/PLT COUNT & AUTO 2021-12-06 13:43:00 Amberly Washington [facility] DIFFERENTIAL Center MR ABDOMEN WITH & WITHOUT 2021-12-06 12:08:00 Amberly Washington [facility] IV CONTRAST Center MR METASTATIC SKELETAL 2021-12-06 11:10:00 Amberly Washington [facility] STUDY Center CT CHEST WITHOUT IV 2021-12-06 10:40:00 Amberly Washington [facility] CONTRAST Center MR ABDOMEN WITH & WITHOUT 2021-08-26 10:40:00 Amberly Washington [facility] IV CONTRAST Center CT CHEST WITHOUT IV 2021-08-26 10:00:00 Amberly Washington [facility] CONTRAST Center ALPHA FETOPROTEIN (AFP), 2021-08-26 08:27:00 Amberly Washington [facility] TUMOR MARKER Center BASIC METABOLIC PANEL 2021-08-26 08:27:00 Amberly Washington [facility] CBC W/PLT COUNT & AUTO 2021-08-26 08:27:00 Amberly Washington [facility] HEPATIC FUNCTION PANEL 2021-08-26 08:27:[address] [facility] PROTHROMBIN TIME/INR 2021-08-26 08:27:00 Amberly Washington [facility] CBC W/PLT COUNT & AUTO 2021-08-26 08:27:00 Amberly Washington [facility] DIFFERENTIAL [place] HEREDITARY HEMOCHROMATOSIS 2021-08-26 08:24:[address] [facility] COMPREHENSIVE METABOLIC 2021-08-03 11:34:00 Amberly Washington [facility] PANEL Center ALPHA FETOPROTEIN (AFP), 2021-08-03 11:34:00 Amberly Washington [facility] TUMOR MARKER Center PROTHROMBIN TIME/INR 2021-08-03 11:34:00 Amberly Washington [facility] CBC W/PLT COUNT & AUTO 2021-08-03 11:34:00 Amberly Washington [facility] NM BONE SCAN WHOLE BODY 2021-04-29 13:03:[address] [facility] MR ABDOMEN WITH & WITHOUT 2021-04-29 11:48:00 Amberly Washington [facility] IV CONTRAST Center CT CHEST WITHOUT IV 2021-04-29 10:31:00 Amberly Washington [facility] CONTRAST Center ALPHA FETOPROTEIN (AFP), 2021-04-29 09:09:00 Amberly Washington [facility] TUMOR MARKER Center BASIC METABOLIC PANEL 2021-04-29 09:09:00 Amberly Washington [facility] CBC W/PLT COUNT & AUTO 2021-04-29 09:09:00 Amberly Washington [facility] DIFFERENTIAL Center HEPATIC FUNCTION PANEL 2021-04-29 09:09:[address] [facility] PROTHROMBIN TIME/INR 2021-04-29 09:09:00 Amberly Washington CH I [facility] CBC W/PLT COUNT & AUTO 2021-04-29 09:09:00 Amberly Washington [facility] DIFFERENTIAL [place] TROPONIN I 2021-04-01 19:14:00 Chandrakant Garrett [facility] COMP. METABOLIC PANEL 2021-04-01 19:14:00 Chandrakant Garrett [facility] ([id number]) Medical Center Clinic AMMONIA, PLASMA 2021-04-01 19:12:00 [facility] CBC WITH DIFF 2021-04-01 19:12:00 [facility] XR CHEST 1 VW 2021-04-01 18:51:09 Singer [facility] URINALYSIS 2021-04-01 18:40:00 Singer [facility] PROTHROMBIN TIME / INR 2021-04-01 18:30:00 Chandrakant Garrett [facility] CONSENT/REFUSAL FOR 2021-04-01 17:58:35 Doctor UnassTrung tubbs [facility] DIAGNOSIS AND TREATMENT [place] Medical [facility] IR EMBOLIZATION ARTERIAL 2021-03-12 12:05:[address] [facility] BASIC METABOLIC PANEL (7) 2021-03-12 07:01:00 Anne-Marie More CH I [facility] HEPATIC FUNCTION PANEL 2021-03-12 07:01:00 Anne-Marie More [facility] CBC W/PLT COUNT & AUTO 2021-03-12 07:01:00 Anne-Marie More [facility] DIFFERENTIAL [facility] PROTHROMBIN TIME/INR 2021-03-12 07:01:00 Anne-Marie More [facility] CBC W/PLT COUNT & AUTO 2021-03-12 07:01:00 Anne-Marie More [facility] DIFFERENTIAL [facility] CBC W/PLT COUNT & AUTO 2021-02-23 10:05:00 [facility]ENTIAL [place] PROTHROMBIN TIME/INR 2021-02-23 10:05:00 [facility] APTT 2021-02-23 10:05:[address] [facility] BASIC METABOLIC PANEL (7) 2021-02-23 10:05:00 [facility] HEPATIC FUNCTION PANEL 2021-02-23 10:05:[address] [facility] CBC W/PLT COUNT & AUTO 2021-02-23 10:05:[address] DIFFERENTIAL [place] SARS-COV-2 COVID-19 2021-02-05 15:47:55 Doctor Unassigned, [facility] VACCINE,0.3ML,IM (PFIZER) [place] [facility] MR ABDOMEN WITH & WITHOUT 2021-01-21 12:00:00 Amberly Washington [facility] IV CONTRAST Center CT CHEST WITHOUT IV 2021-01-21 10:45:00 Amberly Washington [facility] CONTRAST Center ALPHA FETOPROTEIN (AFP), 2021-01-21 10:02:00 Amberly Washington [facility] TUMOR MARKER Center BASIC METABOLIC PANEL (7) 2021-01-21 10:02:[address] [facility] CBC W/PLT COUNT & AUTO 2021-01-21 10:02:00 Amberly Washington [facility] HEPATIC FUNCTION PANEL 2021-01-21 10:02:[address] [facility] PROTHROMBIN TIME/INR 2021-01-21 10:02:00 Amberly Washington [facility] HEPATITIS C PCR, 2021-01-21 10:02:00 Amberly Washington [facility] CBC W/PLT COUNT & AUTO 2021-01-21 10:02:00 Amberly Washington [facility] IR EMBOLIZATION ARTERIAL 2020-11-26 12:27:[address] [facility] BASIC METABOLIC PANEL (7) 2020-11-26 08:28:00 [facility] 2020-11-26 08:28:00 Derik [facility] CBC W/PLT COUNT & AUTO 2020-11-26 08:28:[address] [facility] PROTHROMBIN TIME/INR 2020-11-26 08:28:00 Derik [facility] APTT 2020-11-26 08:28:00 [facility] CBC W/PLT COUNT & AUTO 2020-11-26 08:28:00 [facility]IC METABOLIC PANEL (7) 2020-10-28 10:55:[address] [facility] HEPATIC FUNCTION PANEL 2020-10-28 10:55:[address] [facility] CBC W/PLT COUNT & AUTO 2020-10-28 10:55:00 Amberly Washington [facility] PROTHROMBIN TIME/INR 2020-10-28 10:55:00 Amberly Washington [facility] HEPATITIS C PCR, 2020-10-28 10:55:00 Amberly Washington [facility] QUANTITATIVE Center CBC W/PLT COUNT & AUTO 2020-10-28 10:55:00 Amberly Washington [facility] DIFFERENTIAL [place] NM BONE SCAN WHOLE BODY 2020-10-08 14:02:[address] [facility] ALPHA FETOPROTEIN (AFP), 2020-10-08 10:54:00 Amberly Washington [facility] TUMOR MARKER Center BASIC METABOLIC PANEL (7) 2020-10-08 10:54:[address] [facility] CBC W/PLT COUNT & AUTO 2020-10-08 10:54:00 Amberly Washington [facility] HEPATIC FUNCTION PANEL 2020-10-08 10:54:[address] [facility] PROTHROMBIN TIME/INR 2020-10-08 10:54:00 Amberly Washington [facility] CBC W/PLT COUNT & AUTO 2020-10-08 10:54:00 Amberly Washington [facility] Center CT CHEST WITHOUT IV 2020-10-08 09:45:00 Padmini [facility] Bettie [facility] CONTRAST Center MR ABDOMEN WITH & WITHOUT 2020-09-01 14:15:00 Jose Francisco Lag[facility] IV CONTRAST Center BASIC METABOLIC PANEL (7) 2020-09-01 13:15:00 Nickie Yeh [facility] HEPATIC FUNCTION PANEL 2020-09-01 13:15:00 Ruba Nickie [facility] CBC W/PLT COUNT & AUTO 2020-09-01 13:15:00 Nickie Yeh [facility] DIFFERENTIAL [place] [facility] PROTHROMBIN TIME/INR 2020-09-01 13:15:00 Ruba Nickie [facility] ALPHA FETOPROTEIN (AFP), 2020-09-01 13:15:00 Nickie Yeh CH I [facility] TUMOR MARKER [facility] CBC W/PLT COUNT & AUTO 2020-09-01 13:15:00 Nickie Yeh [facility] DIFFERENTIAL [facility] XR CHEST 1 VW 2020-08-19 13:29:53 Wendy Bull [facility] HB ECG ROUTINE & RHYTHM 2020-08-19 13:05:46 [facility] 2020-08-19 13:01:00 Wendy Bull [facility] TROPONIN I 2020-08-19 13:01:00 Wendy Bull [facility] HEPATIC FUNCTION PANEL 2020-08-19 13:01:00 Wendy Bull [facility] ([id number]) (ALB,T.PRO,BILI Medical Center Clinic T,BU/BC,ALT,AST,ALK PHOS) BASIC METABOLIC PANEL (NA, 2020-08-19 13:01:00 Wendy Bull [facility] K, CL, CO2, GLUCOSE, BUN, Medica l Branch CREATININE, CA) CBC WITH DIFF 2020-08-19 13:01:00 Wendy Bull [facility] N-TERMINAL PRO-BNP 2020-08-19 13:01:00 Wendy Bull [facility] COVID-19 (ID NOW RAPID 2020-08-19 13:01:00 Wendy Bull [facility] TESTING) Medical Center Clinic CONSENT/REFUSAL FOR 2020-08-19 12:21:55 Doctor Unassigned, [facility] DIAGNOSIS AND TREATMENT [place] [facility] AMMONIA, PLASMA 2020-06-26 01:01:00 [facility] PROTHROMBIN TIME / INR 2020-06-26 01:01:00 Carolina [facility] XR CHEST 1 VW 2020-06-25 23:46:19 [facility] LIPASE 2020-06-25 23:43:00 [facility] MAGNESIUM 2020-06-25 23:43:00 [facility] TROPONIN I 2020-06-25 23:43:00 [facility] HEPATIC FUNCTION PANEL 2020-06-25 23:43:00 [place] San [facility] ([id number]) (ALB,T.PRO,BILI Medical Branch T,BU/BC,ALT,AST,ALK PHOS) BASIC METABOLIC PANEL (NA, 2020-06-25 23:43:00 [place] [facility] K, CL, CO2, GLUCOSE, BUN, Medica l Branch CREATININE, CA) CBC WITH DIFF 2020-06-25 23:43:00 [facility] URINALYSIS 2020-06-25 23:43:00 [facility] N-TERMINAL PRO-BNP 2020-06-25 23:43:00 [place] San [facility] COVID-19 (ID NOW RAPID 2020-06-25 23:43:00 [place] San [facility] TESTING) Medical Branch NOTICE OF PRIVACY 2020-06-25 22:41:45 Doctor Arboleda [facility] PRACTICES [facility] CONSENT/REFUSAL FOR 2020-06-25 22:41:29 Doctor Arboleda [facility] DIAGNOSIS AND TREATMENT [facility] HOME HEALTH - OTHER 2019-02-08 05:01:00 Doctor [facility]boleda [facility] HEALTH - OTHER 2019-01-31 05:01:00 Doctor Arboleda [facility] POCT HEMOGLOBIN A1C TEST 2019-01-21 21:30:00 Brenda Rod [facility] DME/SUPPLY JUSTIFICATION 2019-01-17 05:01:00 Doctor Arboleda [facility] Name [facility] HEALTH - OTHER 2019-01-07 05:01:00 Doctor Arboleda [facility] HEALTH - OTHER 2019-01-02 05:01:00 Doctor Arboleda [facility] HOME HEALTH - OTHER 2018-12-28 05:01:00 Doctor Arboleda [facility] Name Medical Center Clinic INSURANCE CORRESPONDENCE 2018-12-17 05:01:00 Doctor Patsssuly, [facility] Name Medical Center Clinic PATIENT QUESTIONNAIRE 2016-10-19 05:01:00 Doctor PatssGisela tubbs [facility] SCANNED LAB RESULTS 2016-10-13 05:01:00 Doctor Trung Arboleda [facility] Plan of Care Planned Activity Planned Date Details Comments Source Future Scheduled 2028-06-12 Screening for malignant [facility] Test 00:00:00 neoplasm of colon Medical Ce nter (procedure) [code = 653788819] Future Scheduled 2028-06-12 Screening for malignant [facility] Test 00:00:00 neoplasm of colon Medical Ce nter (procedure) [code = 289209444] Future Scheduled 2028-06-12 Screening for malignant [facility] Test 00:00:00 neoplasm of colon Medical Ce nter (procedure) [code = 018035117] Future Scheduled 2028-06-12 Screening for malignant [facility] Test 00:00:00 neoplasm of colon Medical Ce nter (procedure) [code = 521195744] Future Scheduled 2028-06-12 Screening for malignant [facility] Test 00:00:00 neoplasm of colon Medical Ce nter (procedure) [code = 638937605] Future Scheduled 2028-06-12 Screening for malignant [facility] Test 00:00:00 neoplasm of colon Medical Ce nter (procedure) [code = 929998596] Future Scheduled 2028-06-12 Screening for malignant [facility] Test 00:00:00 neoplasm of colon Medical Ce nter (procedure) [code = 412145199] Future Scheduled 2028-06-12 Screening for malignant [facility] Test 00:00:00 neoplasm of colon Medical Ce nter (procedure) [code = 123427186] Future Scheduled 2028-06-12 Screening for malignant [facility] Test 00:00:00 neoplasm of colon Medical Ce nter (procedure) [code = 855257672] Future Scheduled 2026-09-18 DTAP/TDAP/TD VACCINES CH I [...] (2 - Td or Tdap)] Future Scheduled 2022-03-[address] [facility] Test 00:00:00 Counseling and Medical Cente r Screening (12+) [code = Tobacco Cessation Counseling and Screening (12+)] Future Scheduled 2022-02-26 IMM Influenza Seasonal H [...] [facility] Test 00:00:00 [code = 70453135] Medical Ce nter Future Scheduled 2021-12-20 Lipid panel (procedure) [facility] Test 00:00:00 [code = 43432856] Medical Ce nter Future Scheduled 2021-12-20 Lipid panel (procedure) [facility] Test 00:00:00 [code = 56505091] Medical Ce nter Future Scheduled 2021-12-20 Lipid panel (procedure) [facility] Test 00:00:00 [code = 93465352] Medical Ce nter Future Scheduled 2021-12-20 Lipid panel (procedure) [facility] Test 00:00:00 [code = 86327515] Medical Ce nter Future Scheduled 2021 Imm Pneumococcal 65+ (1 [facility] Test 00:00:00 - PCV) [code = Imm Pneumococcal 65+ (1 - PCV)] Future Scheduled 2021 Imm Pneumococcal 65+ (1 [facility] Test 00:00:00 - PCV) [code = Imm Pneumococcal 65+ (1 - PCV)] Future Scheduled 2021 Imm Pneumococcal 65+ (1 [facility] Test 00:00:00 - PCV) [code = Imm Pneumococcal 65+ (1 - PCV)] Future Scheduled [address] [facility] Test 00:00:00 aneurysm screening Medical C enter (procedure) [code = 094027563] Future Scheduled 2021 PNEUMOCOCCAL 65+ YRS ([address] [facility] Test 00:00:00 - PPSV23 or PCV20) Medical C enter [code = PNEUMOCOCCAL 65+ YRS (2 - PPSV23 or PCV20)] Future Scheduled [address] [facility] Test 00:00:00 aneurysm screening Medical C enter (procedure) [code = 518090778] Future Scheduled 2021 PNEUMOCOCCAL 65+ YRS ([address] [facility] Test 00:00:00 - PPSV23 or PCV20) Medical C enter [code = PNEUMOCOCCAL 65+ YRS (2 - PPSV23 or PCV20)] Future Scheduled 2021 PNEUMOCOCCAL 65+ YRS ([address] [facility] Test 00:00:00 - PPSV23 or PCV20) Medical C enter [code = PNEUMOCOCCAL 65+ YRS (2 - PPSV23 or PCV20)] Future Scheduled 2021 Imm Pneumococcal 65+ (1 [facility] Test 00:00:00 - PCV) [code = Imm Pneumococcal 65+ (1 - PCV)] Future Scheduled 2021 PNEUMOCOCCAL 65+ YRS (2 [...] of 2 - PPSV23)] Future Scheduled 2006 Screening for malignant [facility] Test 00:00:00 neoplasm of colon (procedure) [code = 432824542] Future Scheduled 2006 Screening for malignant [facility] Test 00:00:00 neoplasm of colon (procedure) [code = 003531565] Future Scheduled 2006 Screening for malignant [facility] Test 00:00:00 neoplasm of colon (procedure) [code = 231350661] Future Scheduled 2006 Screening for malignant [facility] Test 00:00:00 neoplasm of colon (procedure) [code = 899497660] Future Scheduled 2006 SHINGLES VACCINES ([address] [facility] Test 00:00:00 2) [code = [facility] VACCINES (1 of 2)] Future Scheduled 2006 SHINGLES VACCINES ([address] [facility] 00:00:00 2) [code = SHINGLES [facility] [place] VACCINES (1 of 2)] Future Scheduled 2006 [...] 00:00:00 neoplasm of colon (procedure) [code = 802591582] Future Scheduled 2006 SHINGLES VACCINES ([address] [facility] 00:00:00 2) [code = [facility] VACCINES (1 of 2)] Future Scheduled 1961 COVID-19 Vaccine (1) Eusebio [...] = COVID-19 Vaccine (#1)] Future Scheduled 1956 CT Colonography (combo) [facility] 00:00:00 [code = CT Colonography [facility] (combo)] Future Scheduled 1956 Screening for malignant [facility] 00:00:00 neoplasm of colon Medical Ce nter (procedure) [code = 289652763] Future Scheduled 1956 Screening for malignant [facility] 00:00:00 neoplasm of colon Medical Ce nter (procedure) [code = 934580865] Future Scheduled 1956 Sigmoidoscopy [facility]code = [facility]] Medical Cent[facility] r Future Scheduled 1956 CT Colonography (combo) [facility] 00:00:00 [code = CT Colonography [facility] (combo)] Future Scheduled 1956 Screening for malignant [facility] 00:00:00 neoplasm of colon Medical Ce [facility] (procedure) [code = 077142629] Future Scheduled 1956 Screening for malignant [facility] 00:00:00 neoplasm of colon Medical Ce nter (procedure) [code = 118118671] Future Scheduled 1956 Sigmoidoscopy [facility]code = [facility] S[facility]oscopy] Medical Cente r Future Scheduled 1956 CT Colonography (combo) [facility] 00:00:00 [code = CT Colonography [facility] (combo)] Future Scheduled 1956 Screening for malignant [facility] 00:00:00 neoplasm of colon Medical Ce nter (procedure) [code = 740249913] Future Scheduled 1956 Screening for malignant [facility] 00:00:00 neoplasm of colon Medical Ce nter (procedure) [code = 141452562] Future Scheduled 1956 Sigmoidoscopy [facility]code = [facility]oscopy] Medical Cente r Future Scheduled 1956 CT Colonography (combo) [facility] 00:00:00 [code = CT Colonography [facility] (combo)] Future Scheduled 1956 Screening for malignant [facility] 00:00:00 neoplasm of colon Medical Ce nter (procedure) [code = 960811089] Future Scheduled 1956 Screening for malignant [facility] 00:00:00 neoplasm of colon Medical Ce nter (procedure) [code = 882486649] Future Scheduled 1956 [facility]oidoscopy [facility]code = [facility]] Medical Cente r Future Scheduled 1956 Fluoride Varnish [facility] = Fluoride Varnish] Future Scheduled 1956 Fluoride Varnish [facility] 00:[facility]:00 = Fluoride Varnish] Encounters Start End Encounter Admission Attending Care Care Encounter Source Date/Time Date/Time Type Type Clinicians Facility Department ID 2021-03-27 Emergency [facility] [id number] Univers 20:25:53 ity of [facility] 2019-12-24 Inpatient ER JOSÉ ANTONIO MYERS General Med [id number] SLE 16:51:00 JOSH 2022-06-01 2022-06-01 Outpatient [facility] [id number] [facility] SLE 00:00:00 00:00:00 2022-05-18 2022-05-[address] [facility] [id number] 10:14:54 23:59:00 Encounter Amberly Alexandre [facility] 2022-05-18 2022-05-18 [facility] [id number] [facility]H 10:14:54 23:59:00 [facility] 2022-05-18 2022-05-18 [facility] [id number] 10:14:09 23:59:00 Encounter [facility] 2022-05-18 2022-05-18 Outpatient EL RENNYRI, SLE SLE [id number] SLEH 10:14:09 23:59:00 [facility] 2022-05-18 2022-05-[address] [facility] [id number] 10:45:00 10:55:00 Only [facility] 2022-05-18 2022-05-18 Outpatient EL SLE SLE [id number] SLEH 09:40:39 09:40:39 2022-05-11 2022-05-11 Outpatient EL SLEH SLE [id number] SLEH 00:00:00 00:00:00 2022-04-28 2022-04-28 [facility] [id number] 00:00:00 00:00:00 ion [facility] 2022-04-27 2022-04-27 Outpatient EL SLE SLE [id number] SLEH 00:00:00 00:00:00 2022-04-27 2022-04-[address] [facility] [id number] 00:00:00 00:00:00 Only [facility] 2022-04-25 2022-04-25 [facility] [id number] 15:00:00 15:00:00 Encounter [facility] 2022-04-25 2022-04-25 [facility] [id number] 14:00:00 14:00:00 Encounter [facility] 2022-04-25 2022-04-25 Outpatient PING [place] SLE SLE [id number] SLEH 00:00:00 00:00:00 [facility] 2022-04-25 2022-04-25 Outpatient PING [place] SLEH SLE [id number] SLEH 00:00:00 00:00:00 [facility] 2022-04-25 2022-04-25 Outpatient PING [place] SLEH SLEH [id number] SLEH 00:00:00 00:00:00 [facility] 2022-04-25 2022-04-25 [facility] [id number] 00:00[facility]00 00:00:00 [facility] 2022-04-08 2022-04-08 Outpatient EL SLE SLE [id number] SLEH 00:00:00 00:00:00 2022-04-08 2022-04-08 Outpatient PING [place] SLEH SLEH [id number] [facility]H 00:00:00 00:00:00 [facility] 2022-04-08 2022-04-08 Outpatient PING [place] SLE SLE [id number] SLEH 00:00:00 00:00:00 [facility] 2022-04-08 2022-04-08 [facility] [id number] 00:00[facility]00 00:00:00 [facility] 2022-04-08 2022-04-[address] [facility] [id number] 00:00:00 00:00:00 Orders [facility] 2022-04-08 2022-04-[address] [facility] [id number] 00:00:00 00:00:00 Orders [facility] 2022-04-07 2022-04-07 [facility] [id number] 00:00:00 00:00:00 [facility]22-04-06 2022-04-[address] [facility] [id number] 00:00:00 00:00:00 [facility] 2022-03-29 2022-03-[address] [facility] [id number] 00:00:00 00:00:00 devon [facility] 2022-03-29 2022-03-[address] [facility] [id number] 00:00:00 00:00:00 [facility] 2022-03-23 2022-03-23 Outpatient EL SLE SLE [id number] SLEH 00:00:00 00:00:00 2022-03-18 2022-03-[address] [facility] [id number] 00:00:00 00:00:00 [facility] 2022-03-18 2022-03-[address] [facility] [id number] 00:00:00 00:00:00 [facility] 2022-03-09 2022-03-09 Outpatient EL SLEH SLEH [id number] SLEH 00:00:00 00:00:00 2022-03-09 2022-03-09 Outpatient EL EVELYNADERI, SLE SLE [id number] SLE 00:00:00 00:00:00 [facility] 2022-03-09 2022-03-09 Outpatient EL EVELYNADERI, SLE SLE [id number] SLEH 00:00:00 00:00:00 [facility] 2022-03-04 2022-03-[address] [facility] [id number] 00:00:00 00:00:00 [facility] 2022-03-04 2022-03-[address] [facility] [id number] 00:00:00 00:00:00 [facility] 2022-02-25 2022-02-[address] [facility] [id number] 00:00:00 00:00:00 [facility] 2022-02-25 2022-02-[address] [facility] [id number] 00:00[facility]00 00:00:00 [facility] 2022-02-01 2022-02-[address] [facility] [id number] 00:00[facility]00 00:00:00 [facility] 2022-02-01 2022-02-[address] [facility] [id number] 00:00:00 00:00:00 [facility] 2022-01-21 2022-01-[address] [facility] [id number] 00:00:00 00:00:00 [facility] 2022-01-21 2022-01-[address] [facility] [id number] 00:00:00 00:00:00 [facility] 2022-01-18 2022-01-[address] [facility] [id number] 00:00:00 00:00:00 [facility] 2022-01-18 2022-01-[address] [facility] [id number] 00:00:00 00:00:00 [facility] 2022-01-17 2022-01-[address] [facility] [id number] 00:00:00 00:00:00 [facility] 2022-01-17 2022-01-[address] [facility] [id number] 00:00:00 00:00:00 [facility] 2022-01-13 2022-01-[address] [facility] [id number] 00:00:00 00:00:00 [facility] 2022-01-13 2022-01-[address] [facility] [id number] 00:00:00 00:00:00 devon Murphy [facility] 2022-01-10 2022-01-10 [facility] [id number] 00:00:00 00:00:00 [facility] Eddie Ma[facility] [employer] 2022-01-10 2022-01-10 [facility] [id number] 00:00:00 00:00:00 [facility] 2022-01-07 2022-01-07 [facility] [id number] 00:00:00 00:00:00 [facility] 2022-01-07 2022-01-07 [facility] [id number] 00:00:00 00:00:00 [facility] 2022-01-04 2022-01-04 [facility] [id number] 11:53:22 23:59:00 Encounter [facility] 2022-01-04 2022-01-04 [facility] [id number] 11:53:22 23:59:00 Encounter [facility] 2022-01-04 2022-01-04 Outpatient [facility] [id number] [facility] 11:53:22 23:59:00 [facility] 2021-12-26 2021-12-26 Emergency [facility] [id number] Univers 15:39:00 18:19:00 FELISHA schmitt [facility] 2021-12-26 2021-12-26 [facility] [id number] Univers 15:39:00 18:19:00 Felisha VENEGAS [id number] aung thorpe [facility] [id number] [facility] [id number] [place] [address] [place] 2021-12-23 2021-12-23 [facility] [place] [id number] 00:00:00 00:00:00 [facility] 2021-12-23 2021-12-[address] [facility] [id number] 00:00:00 00:00:00 Only [facility] 2021-12-23 2021-12-23 Documentat Steinberg, [facility] [id number] 00:00:00 00:00:00 [facility] 2021-12-23 2021-12-23 Toni Steinberg, [facility] [id number] 00:00:00 00:00:00 Only [facility] 2021-12-22 2021-12-[address] [facility] [id number] 11:00:00 11:36:33 Visit [facility] 2021-12-22 2021-12-[address] [facility] [id number] 11:00:00 11:36:33 Visit [facility] 2021-12-22 2021-12-22 Outpatient PING [place] [facility] SLE [id number] SLE 10:31:24 11:36:33 [facility] 2021-12-22 2021-12-[address] [facility] [id number] [facility] 00:00:00 00:00:00 [facility] 2021-12-22 2021-12-[address] [facility] [id number] 00:00:00 00:00:00 [facility] 2021-12-22 2021-12-[address] [facility] [id number] 00:00:00 00:00:00 [facility] 2021-12-22 2021-12-22 Documentat Guzmán, [facility] [id number] 00:00:00 00:00:00 [facility] 2021-12-21 2021-12-21 Orders Idris, [facility] [id number] 00:00:00 00:00:00 Only [facility] 2021-12-21 2021-12-[address] [facility] [id number] 00:00:00 00:00:00 Only [facility] 2021-12-21 2021-12-21 Orders Idris, [facility] [id number] 00:00:00 00:00:00 Only [facility] 2021-12-21 2021-12-21 Toni Steinberg, [facility] [id number] 00:00:00 00:00:00 Only [facility] 2021-12-20 2021-12-20 [facility] [id number] 00:00:00 00:00:00 [facility] 2021-12-20 2021-12-20 Document Guzmán, [facility] [id number] 00:00:00 00:00:00 [facility] 2021-12-16 2021-12-[address] [facility] [id number] 00:00:00 00:00:00 [facility] 2021-12-16 2021-12-16 [facility] [id number] 00:00:00 00:00:00 [facility] 2021-12-09 2021-12-09 [facility]at [facility] [id number] 00:00:00 00:00:00 [facility] 2021-12-09 2021-12-[address] [facility] [id number] 00:00:00 00:00:00 ion [facility] 2021-12-08 2021-12-08 Outpatient EL SLE SLE [id number] [facility]H 00:00:00 00:00:00 2021-12-06 2021-12-06 [facility] [id number] 09:26:33 23:59:00 Encounter [facility] 2021-12-06 2021-12-06 [facility] [id number] 09:26:33 23:59:00 Encounter [facility] 2021-12-06 2021-12-06 Outpatient PING [place] [facility] SLE [id number] SLEH 09:26:33 23:59:00 [facility] 2021-12-06 2021-12-06 [facility] [id number] 13:40:00 13:50:00 Only [facility] 2021-12-06 2021-12-06 [facility] [id number] 13:40:00 13:50:00 Only [facility] 2021-12-06 2021-12-06 Outpatient EL SLE SLE [id number] SLEH 13:38:35 13:38:35 2021-12-06 2021-12-06 [facility] [id number] 09:25:54 09:25:54 Encounter [facility] 2021-12-06 2021-12-06 [facility] [id number] 09:25:54 09:25:54 Encounter [facility] 2021-12-06 2021-12-06 Outpatient ROLA GREENFIELD SLE [id number] SLEH 09:25:54 09:25:54 [facility] 2021-12-06 2021-12-06 [facility] [id number] 09:25:37 09:25:37 Encounter [facility] 2021-12-06 2021-12-06 [facility] Padmini, [facility] [id number] 09:25:37 09:25:37 Encounter [facility] 2021-12-06 2021-12-06 Outpatient [place]ING [place] SLECarmine SLEH [id number] SLEH 09:25:37 09:25:37 [facility] 2021-12-06 2021-12-06 [facility] [place] [place] [id number] 00:00:00 00:00:00 [facility] 2021-12-06 2021-12-06 [facility] [place] [id number] 00:00:00 00:00:00 [facility] 2021-11-25 2021-11-25 Outpatient PING [place], SLEH SLEH [id number] [facility] 00:00:00 00:00:00 [facility] 2021-11-25 2021-11-25 Outpatient PING [place] SLEH SLEH [id number] [facility] 00:00:00 00:00:00 [facility] 2021-11-25 2021-11-25 Outpatient PING [place] SLEH SLEH [id number] [facility] 00:00:00 00:00:00 [facility] 2021-11-25 2021-11-25 Outpatient EL SLEH SLEH [id number] [facility]H 00:00:00 00:00:00 2021-11-08 2021-11-08 [facility] [id number] 00:00:00 00:00:00 [facility] 2021-11-08 2021-11-08 [facility]at [facility] [id number] 00:00:00 00:00:00 [facility] 2021-11-08 2021-11-08 Riso [facility] [id number] 00:00:00 00:00:00 [facility] 2021-11-08 2021-11-08 Documentat Guzmán, [facility] [id number] 00:00:00 00:00:00 [facility] 2021-10-22 2021-10-22 Outpatient DMG DMG [id number] [facility] 09:00:00 09:00:00 [id number] [facility] 2021-09-30 2021-09-30 Documentat Guzmán, [facility] [id number] 00:00:00 00:00:00 [facility] 2021-09-30 2021-09-30 Documentat Guzmán, [facility] [id number] 00:00:00 00:00:00 [facility] 2021-09-28 2021-09-28 Telephone Albaro, [facility] [id number] 00:00:00 00:00:00 [facility] 2021-09-28 2021-09-28 Telephone Albaro, [facility] [id number] 00:00:00 00:00:00 [facility] 2021-09-08 2021-09-08 Outpatient PING [place], SLE SLE [id number] SLEH 09:55:52 10:29:39 [facility] 2021-09-08 2021-09-[address] [facility] [id number] 09:30:00 10:29:39 Visit [facility] 2021-09-08 2021-09-[address] [facility] [id number] 09:30:00 10:29:39 Visit [facility] 2021-09-08 2021-09-[address] [facility] [id number] 00:00:00 00:00:00 [facility] 2021-09-08 2021-09-[address] [facility] [id number] 00:00:00 00:00:00 Only [facility] 2021-09-06 2021-09-06 Documentat Guzmán, [facility] [id number] 00:00:00 00:00:00 [facility] 2021-09-06 2021-09-06 Documentat Guzmán, [facility] [id number] 00:00:00 00:00:00 [facility] 2021-09-02 2021-09-02 [facility] [place] [id number] 00:00:00 00:00:00 [facility] 2021-09-02 2021-09-02 [facility] [place] [id number] 00:00:00 00:00:00 [facility] 2021-08-30 2021-08-30 Document [facility] [id number] 00:00:00 00:00:00 [facility] 2021-08-30 2021-08-[facility] [id number] 00:00:00 00:00:00 [facility] 2021-08-30 2021-08-30 Document Guzmán, [facility] [id number] 00:00:00 00:00:00 [facility] 2021-08-30 2021-08-30 [facility] [place] [id number] 00:00:00 00:00:00 [facility] 2021-08-26 2021-08-26 Outpatient [facility] SLE [id number] SLE 08:46:32 23:59:00 [facility] 2021-08-26 2021-08-26 [facility] [id number] 08:46:32 23:59:00 Encounter [facility] 2021-08-26 2021-08-26 [facility] [id number] 08:46:32 23:59:00 Encounter [facility] 2021-08-26 2021-08-26 Orders Padmini, [facility] [id number] 09:00:00 09:10:00 Only [facility] 2021-08-26 2021-08-26 Orders PING Washington, [facility] [id number] 09:00:00 09:10:00 Only [facility] 2021-08-26 2021-08-26 Outpatient PING W[place] [facility] [id number] [facility]H 08:42:22 08:45:00 [facility] 2021-08-26 2021-08-26 [facility] [id number] 08:42:22 08:45:00 Encounter [facility] 2021-08-26 2021-08-26 [facility] [id number] 08:42:22 08:45:00 Encounter [facility] 2021-08-26 2021-08-26 Outpatient EL SLE SLE [id number] SLEH 08:20:55 08:20:55 2021-08-26 2021-08-26 Outpatient EL SLE SLE [id number] [facility]H 00:00:00 00:00:00 2021-08-16 2021-08-16 [facility] [id number] 00:00:00 00:00:00 [facility] 2021-08-16 2021-08-16 [facility]ios [facility] [id number] 00:00:00 00:00:00 [facility] 2021-08-16 2021-08-16 [facility] [id number] 00:00:00 00:00:00 [facility] 2021-08-16 2021-08-16 Documentcarla [facility] [id number] 00:00:00 00:00:00 [facility] 2021-08-05 2021-08-05 Documentcarla Steinberg, [facility] [id number] 00:00:00 00:00:00 [facility] 2021-08-05 2021-08-05 Documentcarla Ordonezado, [facility] [id number] 00:00:00 00:00:00 [facility] 2021-08-02 2021-08-[address] [facility] [id number] 00:00:00 00:00:00 Only [facility] 2021-08-02 2021-08-[address] [facility] [id number] 00:00:00 00:00:00 Only [facility] 2021-07-28 2021-07-28 [facility] [id number] [facility] 09:06:24 09:58:24 [facility] 2021-07-28 2021-07-[address] [facility] [id number] 09:00:00 09:58:24 Visit [facility] 2021-07-28 2021-07-[address] [facility] [id number] 09:00:00 09:58:24 Visit [facility] 2021-07-27 2021-07-27 [facility] [id number] 00[facility]00 00:00:00 [facility] 2021-07-27 2021-07-[address] [facility] [id number] 00:00:00 00:00:00 Only [facility] 2021-07-27 2021-07-27 Documentat Guzmán, [facility] [id number] 00:00[facility]00 00:00:00 [facility] 2021-07-27 2021-07-[address] [facility] [id number] 00:00:00 00:00:00 [facility] 2021-07-26 2021-07-26 Documentat Guzmán, [facility] [id number] [id number] 00:00[facility]00 00:00:00 [facility] 2021-07-26 2021-07-26 Documentat Guzmán, [facility] [id number] [id number] 00:00[facility]00 00:00:00 [facility] 2021-07-26 2021-07-26 Documentat Guzmán, [facility] [id number] [facility] 00:00:00 [facility] 2021-07-26 2021-07-26 Maxineat Guzmán, [facility] [id number] 00:[facility]00 00:00:00 [facility] 2021-07-14 2021-07-14 Outpatient EL SLEH SLEH [id number] [facility] 00:00:00 00:00:00 2021-07-12 2021-07-[address] [facility] [id number] [facility] 00:00:00 [facility] 2021-07-12 2021-07-[address] [facility] [id number] [facility] 00:[facility] 00:00:00 [facility] 2021-07-07 2021-07-07 Outpatient EL SLEH SLEH [id number] [facility] 00:00:00 00:00:00 2021-07-07 2021-07-07 Maxineat Guzmán, [facility] [id number] 00:00[facility]00 00:00:00 [facility] 2021-07-07 2021-07-07 [facility] [id number] 00:00[facility]00 00:00:00 devon [facility] 2021-06-28 2021-06-[address] [facility] [id number] 00:00[facility]00 00:00:00 [facility] 2021-06-28 2021-06-28 [facility]carla [facility] [id number] 00:00:00 00:00:00 [facility] 2021-06-27 2021-06-27 Telephone [facility] [id number] 00:00:00 00:00:00 [facility] 2021-06-27 2021-06-27 Telephone [facility] [id number] [address] 00:00:00 00:00:00 [facility] 2021-05-24 2021-05-24 [facility] 1.2.840.114 [id number] Univers 00:00:00 00:00:00 Pearl VENEGAS 350.1.13.10 i david [facility] 4.2.7.2.686 Anyi REZA [phone] [address] 2021-05-14 2021-05-[address] [facility] [id number] 00:00:00 00:00:00 devon [facility] 2021-05-13 2021-05-[address] [facility] [id number] [address] [facility] 00[facility]00[facility]00 [facility] 2021-05-12 2021-05-12 Outpatient EL SLEH SLEH [id number] [facility]H 00:00:00 00:00:00 2021-05-10 2021-05-[address] [facility] [id number] 00:00:00 00:00:00 [facility] 2021-05-03 2021-05-03 Documentat Idris, [facility] [id number] 00:00:00 00:00:00 ion [facility] 2021-04-29 2021-04-29 Outpatient [place] SLEH SLEH [id number] SLEH 10:09:55 23:59:00 [facility] 2021-04-29 2021-04-29 [facility] [id number] 10:09:55 23:59:00 Encounter [facility] 2021-04-29 2021-04-29 Orders [facility] [id number] 12:00:00 12:10:00 Only [facility] 2021-04-29 2021-04-29 Outpatient [place] SLEH SLE [id number] SLEH 10:09:10 10:08:00 [facility] 2021-04-29 2021-04-29 [facility] [id number] 10:00:00 10:08:00 Encounter [facility] 2021-04-29 2021-04-29 Outpatient [place] SLE SLE [id number] SLE 09:35:14 09:59:00 [facility] 2021-04-29 2021-04-29 [facility] [id number] 09:35:14 09:59:00 Encounter [facility] 2021-04-29 2021-04-29 Outpatient [place] SLECarmine SLE [id number] SLEH 09:35:00 09:34:00 [facility] 2021-04-29 2021-04-29 [facility] [id number] 09:00:00 09:34:00 Encounter [facility] 2021-04-29 2021-04-29 Outpatient PING SLEH SLE [id number] SLEH 08:33:09 08:33:09 2021-04-29 2021-04-[address] [facility] [id number] SLE 00:00:00 00:00:00 AMBERLY 2021-04-02 2021-04-02 [place] [facility] 1.2.840.114 [id number] Univers 00:00:00 00:00:00 Pearl VENEGAS 350.1.13.10 i ty of [place] [phone] Vt dical NAL [address] [place] [address] 2021-04-01 2021-04-01 Emergency [facility] E[facility] [id number] Univers 13:07:00 15:37:00 CHANDRAKANT schmitt [facility] 2021-04-01 2021-04-01 Emergency [facility] 1.2.275.833 [id number] Univers 13:07:00 15:37:00 Chandrakant VENEGAS 350.1.13.10 i [place] [phone] [facility] [address] [place] [address] 2021-03-18 2021-03-18 [facility] [id number] [facility] 00:00:00 00:00:00 Only [facility] 2021-03-16 2021-03-16 [facility] 1.2.840.114 [id number] Univers 00:00:00 00:00:00 Pearl Venegas 350.1.13.10 i [place].2.[place] [phone] Vt dical nal 044 [facility] 2021-03-15 2021-03-15 [facility] 1.2.840.114 [id number] Univers 00:00:00 00:00:00 Pearl Venegas 350.1.13.10 i [place].2.[place] [phone] Vt dical nal 044 [facility] 2021-03-12 2021-03-12 [facility] [id number] 12:16:00 15:05:00 Encounter [facility] 2021-03-12 2021-03-12 Outpatient JOSÉ ANTONIO [facility] [id number] SLEH 06:21:33 15:05:00 [facility] 2021-03-12 2021-03-12 Abstract Yohannes, [facility] [id number] 00:00:00 00:00:00 [facility] 2021-03-10 2021-03-10 Documentat [facility] [id number] 00:00:00 00:00:00 ion Jeffrey [facility] 2021-03-10 2021-03-10 Orders [facility] [id number] 00:00:00 00:00:00 Only Anne-Marie [facility] 2021-02-23 2021-02-23 Hospital [facility] [id number] 09:28:20 23:59:00 Encounter [facility] 2021-02-23 2021-02-23 Outpatient [place] [facility] [id number] SLE 00:00:00 23:59:00 [facility] 2021-02-23 2021-02-23 Outpatient SLE SLEH [id number] SLEH 10:02:57 10:02:57 2021-02-23 2021-02-[address] [facility] [id number] 00:00:00 00:00:00 Orders Nancy [facility] 2021-02-05 2021-02-05 Outpatient Juan J GUIDRY [facility] [id number] Univers 10:50:00 10:50:00 TAM schmitt [facility] 2021-02-05 2021-02-05 Imm/Inj Nurse, Adc Pob Immunization [facility] 1.2.840.114 [id number] Univers 10:46:45 10:47:11 Visit Tam Guidry 350.1.13 .10 oskar [place] 4.2.7.2.686 Anyi Reza [phone] Vt dical nal [address] 2021-02-04 2021-02-04 Documentat Guzmán, [facility] [id number] 00:00:00 00:00:00 [facility] 2021-02-04 2021-02-04 Documentat Guzmán, [facility] [id number] 00:00:00 00:00:00 [facility] 2021-02-04 2021-02-04 Documentat Guzmán, [facility] [id number] 00:00:00 00:00:00 [facility] 2021-02-03 2021-02-[address] [facility] [id number] 10:00:00 10:30:00 Visit [facility] 2021-02-03 2021-02-03 Outpatient SLEH SLEH [id number] SLEH 00:00:00 00:00:00 2021-02-03 2021-02-[address] [facility] [id number] 00:00:00 00:00:00 [facility] 2021-02-03 2021-02-[address] [facility] [id number] 00:00:00 00:00:00 [facility] 2021-02-03 2021-02-[address] [facility] [id number] 00:00:00 00:00:00 Only Eddie Ma[facility] [employer] 2021-02-02 2021-02-02 Telephone Ramirez, [facility] [id number] 00:00:00 00:00:00 [facility] 2021-01-28 2021-01-28 Documentat Ramirez, [facility] [id number] 00:00:00 00:00:00 [facility] 2021-01-25 2021-01-[address] [facility] [id number] 00:00:00 00:00:00 [facility] 2021-01-21 2021-01-21 [facility] [id number] 10:27:08 23:59:00 Encounter [facility] 2021-01-21 2021-01-21 [facility] [id number] 10:27:00 10:27:00 Encounter [facility] 2021-01-21 2021-01-21 Orders Padmini, [facility] [id number] 09:58:59 10:08:59 Only [facility] 2021-01-21 2021-01-21 Outpatient KHADERI, SLEH SLEH [id number] [facility]H 00:00:00 00:00:00 [facility] 2021-01-21 2021-01-21 Outpatient KHADERI, SLEH SLEH [id number] SLEH 00:00:00 00:00:00 [facility] 2021-01-21 2021-01-21 Outpatient EL SLEH SLEH [id number] SLEH 00:00:00 00:00:00 2020-12-30 2020-12-30 Outpatient SLEH SLEH [id number] SLEH 00:00:00 00:00:00 2020-12-17 2020-12-17 Outpatient EL SLEH SLEH [id number] SLEH 00:00:00 00:00:00 2020-12-17 2020-12-17 Outpatient KHADERI, SLEH SLEH [id number] SLEH 00:00:00 00:00:00 [facility] 2020-12-17 2020-12-17 Outpatient KHADERI, SLEH SLEH [id number] [facility]H 00:00:00 00:00:00 [facility] 2020-12-02 2020-12-[address] [facility] [id number] [facility]00 00:00:00 [facility] 2020-11-26 2020-11-26 Hospital PING [place], [facility] [id number] 13:14:00 18:00:00 Encounter [facility] 2020-11-26 2020-11-26 Outpatient EL SLE SLE [id number] SLEH 00:00:00 00:00:00 2020-11-18 2020-11-18 Abstract Yohannes, [facility] [id number] 00:00:00 00:00:00 [facility] 2020-11-16 2020-11-[address] [facility] [id number] 00:00:00 00:00:00 ion [facility] 2020-11-16 2020-11-[address] [facility] [id number] 00:00:00 00:00:00 [facility] 2020-11-10 2020-11-[address] [facility] [id number] 00:00:00 00:00:00 Only [facility] 2020-11-05 2020-11-[address] [facility] [id number] 00:00:00 00:00:00 [facility] 2020-11-04 2020-11-04 Office System, [facility] [id number] 09:38:44 10:38:44 Visit Provider [facility] 2020-11-04 2020-11-04 Outpatient SLE SLE [id number] SLEH 00:00:00 00:00:00 2020-10-28 2020-10-[address] [facility] [id number] 08:37:21 10:38:34 Visit [facility] 2020-10-28 2020-10-28 Outpatient EL SLE SLEH [id number] SLEH 00:00:00 00:00:00 2020-10-28 2020-10-28 Outpatient [facility] [id number] SLEH 00:00:00 00:00:00 2020-10-28 2020-10-28 [facility] [id number] 00:00:00 00:00:00 [facility] 2020-10-28 2020-10-28 Documentat [facility] [id number] 00:00:00 00:00:00 ion [facility] 2020-10-27 2020-10-27 Telephone [facility] [id number] 00:00:00 00:00:00 [facility] 2020-10-21 2020-10-21 Outpatient SLE SLE [id number] SLEH 00:00:00 00:00:00 2020-10-21 2020-10-21 Telephone Kimberley [facility] 1.2.840.114 [id number] Univers 00:00:00 00:00:00 Pearl Venegas 350.1.13.10 i david [facility] 4.2.7.2.686 Anyi jauregui [facility] [phone] Vt dical nal [address] [place] [address] 2020-10-20 2020-10-[address] [facility] [id number] 00:00:00 00:00:00 Only [facility] 2020-10-19 2020-10-19 Telephone [facility] [id number] 00:00:00 00:00:00 [facility] 2020-10-19 2020-10-19 Documentat [facility] [id number] 00:00:00 00:00:00 devon [facility] 2020-10-15 2020-10-15 Documentat [facility] [id number] 00:00:00 00:00:00 devon [facility] 2020-10-14 2020-10-14 Telemedici [facility] 1.2.840.114 [id number] Univers 11:21:55 11:27:44 ne Visit Pearl Venegas 350.1.13.10 ity [facility] 4.2.7.2.686 [place] [phone] Vt dical nal 044 [facility] 2020-10-14 2020-10-14 [facility] [id number] Univers 09:20:00 09:20:00 PEARL schmitt [facility] 2020-10-13 2020-10-13 Refill [facility] 1.2.840.114 [id number] Univers 00:00:00 00:00:00 Pearl Venegas 350.1.13.10 i david [facility] 4.2.7.2.686 Anyi s Keyio [phone] Vt dical nal [address] [place] [address] 2020-10-12 2020-10-12 Documentat [facility] [id number] 00:00:00 00:00:00 [facility] 2020-10-08 2020-10-08 [facility] [id number] 09:30:00 23:59:00 Encounter [facility] 2020-10-08 2020-10-08 Orders [facility] [id number] 10:50:16 11:05:16 Only [facility] 2020-10-08 2020-10-08 [facility] [id number] 08:45:00 09:29:00 Encounter [facility] 2020-10-08 2020-10-08 Outpatient PADMINI [facility] [id number] SLE 00:00:00 00:00:00 [facility] 2020-10-08 2020-10-08 Outpatient [place] [facility] [id number] SLE 00:00:00 00:00:00 [facility] 2020-10-08 2020-10-08 Outpatient [facility] [id number] SLE 00:00:00 00:00:00 2020-10-08 2020-10-08 Outpatient [place] SLE SLE [id number] SLE 00:00:00 00:00:00 [facility] 2020-10-08 2020-10-08 Outpatient PADMINI SLECarmine SLE [id number] SLE 00:00:00 00:00:00 [facility] 2020-10-08 2020-10-08 Outpatient PADMINI SLE SLE [id number] SLE 00:00:00 00:00:00 [facility] 2020-10-08 2020-10-[address] [facility] [id number] 00:00:00 00:00:00 Only [facility] 2020-09-21 2020-09-[address] [facility] [id number] 00:00:00 00:00:00 Only [facility] 2020-09-11 2020-09-[address] [facility] [id number] 00:00:00 00:00:00 [facility] 2020-09-21 2020-09-10 Inpatient [place], HCAPM ENDO [id number] [facility] 07:00:00 11:10:20 Anil Av[facility] 2020-09-10 2020-09-[address] [facility] [id number] 00:00:00 00:00:00 ion Jeffrey [facility] 2020-09-03 2020-09-[address] [facility] [id number] 00:00:00 00:00:00 ion Samira Arita [facility] 2020-09-02 2020-09-[address] [facility] [id number] [facility] 00:00:00 00:00:00 ion Marta Lindsey [facility] 2020-09-02 2020-09-[address] [facility] [id number] 00:00:00 00:00:00 [facility] 2020-09-01 2020-09-[address] [facility] [id number] 10:00:00 23:59:00 [facility] 2020-09-01 2020-09-01 Follow-Up PING Yeh [facility] [id number] 09:48:56 10:18:56 Nickie Agustin [facility] 2020-09-01 2020-09-01 Outpatient [facility] [id number] [facility]H 00:00:00 00:00:00 2020-09-01 2020-09-01 Outpatient JOSE FRANCISCO WHITEHEAD [facility] [id number] SLE 00:00:00 00:00:00 2020-09-01 2020-09-[address] [facility] [id number] 00:00:00 00:00:00 [facility] 2020-09-01 2020-09-[address] [facility] [id number] 00:00:00 00:00:00 devon Arita [facility] 2020-08-31 2020-08-[address] [facility] [id number] 00:00:00 00:00:00 [facility] 2020-08-19 2020-08-19 Emergency [facility] 1.2.840.114 [id number] 07:35:00 10:07:00 Wendy Venegas 350.1.13.10 [place] 4.2.7.2.686 [place] [phone] [id number] 2020-08-19 2020-08-19 Emergency JorgitoLAUR[place], [place] 1.2.840.114 [id number] [facility] 07:35:00 10:07:00 Wendy Venegas 350.1.13.10 ity of [place] 4.2.7.2.686 [facility] [phone] [facility] [address] 2020-08-19 2020-08-19 Emergency X JORGITO [facility] ERT [id number] Univers 07:35:00 10:07:00 WENDY schmitt [facility] 2020-08-19 2020-08-19 Orders Doctor MONAE 1.2.840.114 [id number] 00:00:00 00:00:00 Only Unassigned, TOY 350.1.13.10 [place] [facility] 4.2.7.2.686 [id number] 009 2020-08-19 2020-08-19 Orders Doctor MONAE 1.2.840.114 [id number] Univers 00:00:00 00:00:00 Only Unassigned, TOY 350.1.13.10 ity of [place] [facility] 4.2.7.2.686 Bryce as [phone] [address] 2020-08-03 2020-08-03 Refill [facility] 1.2.840.114 [id number] 00:00:00 00:00:00 Pearl Venegas 350.1.13.10 [place] 4.2.7.2.686 Professio [phone] [address] 2020-08-03 2020-08-03 [facility] 1.2.840.114 [id number] Univers 00:00:00 00:00:00 Pearl Venegas 350.1.13.10 i ty [facility] 4.2.7.2.[place] [phone] Vt dical [address] 2020-07-19 2020-07-[address] [facility] [id number] [facility] 13:46:40 13:56:40 on [place] [facility] 2020-07-19 2020-07-19 Outpatient [facility] [id number] SLE 00:00:00 00:00:00 2020-07-19 2020-07-[address] [facility] [id number] [facility] 00:00:00 00:00:00 devon Rosas [facility] 2020-07-18 2020-07-18 Outpatient [facility] [id number] SLE 00:00:00 00:00:00 2020-06-28 2020-06-28 [facility] [id number] [facility] 00:00:00 00:00:00 2020-06-25 2020-06-25 Emergency [facility], [facility] 1.2.644.566 [id number] 17:04:00 23:09:00 [place] Venegas 350.1.13.10 [place] 4.2.7.2.686 [place] [id number] 08 2020-06-25 2020-06-25 Emergency [facility] 1.2.389.474 [id number] [facility] 17:04:00 23:09:00 Carolina Venegas 350.1.13.10 ity of [place] 4[place]2.7.2.[place] [id number] [facility] 084 [place] 2020-06-25 2020-06-25 Orders Doctor MONAE 1.2.840.114 [id number] 00:00:00 00:00:00 Only Unassigned, TOY 350.1.13.10 [place] [facility] 4.2.7.2.686 [id number] 009 2020-06-25 2020-06-25 Orders Doctor MONAE 1.2.840.114 [id number] [facility] 00:00:00 00:00:00 Only Unassigned, TOY 350.1.13.10 ity of [place] [facility] 4.2.7.2.686 Bryce as [phone] [facility] 009 [place] 2020-06-22 2020-06-22 [facility] 1.2.840.114 [id number] 00:00:00 00:00:00 Pearl Venegas 350.1.13.10 [place] 4.2.7.2.686 Professio [phone] [address] 2020-06-22 2020-06-22 [facility] 1.2.840.114 [id number] [facility] 00:00:00 00:00:00 Pearl Venegas 350.1.13.10 i ty of [place] 4[place]2.7.2.[place] [phone] Vt dical nal 044 [facility] 2020-03-13 2020-03-13 Outpatient EL SLEH SLEH [id number] [facility] 00:00:00 00:00:00 2020-03-13 2020-03-13 Outpatient SLEH SLEH [id number] [facility] 00:00:00 00:00:00 2020-03-13 2020-03-13 Outpatient JESSICA, SLEH SLEH [id number] [facility] 00:00:00 00:00:00 [facility] 2020-03-13 2020-03-13 Outpatient EL KHADERI, SLEH SLEH [id number] [facility]H 00:00:00 00:00:00 [facility] 2020-02-18 2020-02-18 Outpatient SLEH SLEH [id number] [facility] 00:00:00 00:00:00 2020-02-18 2020-02-18 Outpatient EL SLEH SLEH [id number] [facility]H 00:00:00 00:00:00 2020-02-18 2020-02-18 Outpatient SLEH SLEH [id number] [facility]H 00:00:00 00:00:00 2020-02-05 2020-02-05 Outpatient SLEH SLEH [id number] [facility] 00:00:00 00:00:00 2020-02-05 2020-02-05 Outpatient KHADERI, SLEH SLEH [id number] [facility]H 00:00:00 00:00:00 [facility] 2020-02-05 2020-02-05 Outpatient SLEH SLEH [id number] [facility]H 00:00:00 00:00:00 2020-01-28 2020-01-28 Outpatient EL SLEH SLEH [id number] [facility]H 00:00:00 00:00:00 2020-01-14 2020-01-14 Outpatient EL SLEH SLEH [id number] [facility]H 00:00:00 00:00:00 2019-09-11 2019-09-11 Telephone DON Chu 1.2.840.114 [id number] 00:00:00 00:00:00 Pearl Venegas 350.1.13.10 [place] 4.2.7.2.686 John [phone] nal [address] [place] [address] 2019-09-11 2019-09-11 Telephone Kimberley EDINNUBIA 1.2.840.114 [id number] [facility] 00:00:00 00:00:00 Pearl Venegas 350.1.13.10 [facility] [place] [facility] [phone] Vt dical [address] 2019-08-20 2019-08-20 Outpatient [facility] [id number] [facility] 00:00:00 00:00:00 [id number] 2019-02-08 2019-02-08 Orders Doctor MONAE 1.2.840.114 [id number] 00:00:00 00:00:00 Only Unassigned, TOY 350.1.13.10 [facility] 4.2.7.2.686 [id number] 2019-02-08 2019-02-08 Orders Doctor MONAE 1.2.840.114 [id number] [facility] 00:00:00 00:00:00 Only Unassigned, TOY 350.1.13.10 [facility]y of [facility] 4.2.7.2.686 Bryce as [phone] [address] 2019-01-31 2019-01-31 Orders Doctor MONAE 1.2.840.114 [id number] 00:00:00 00:00:00 Only Unassigned, TOY 350.1.13.10 [facility] 4.2.7.2.686 [id number] 2019-01-31 2019-01-31 Orders Doctor LICONA 1.2.840.114 [id number] [facility] 00:00:00 00:00:00 Only Unassigned, TOY 350.1.13.10 [facility] 4.2.7.2.686 Bryce as [phone] [address] 2019-01-23 2019-01-23 Telephone Brenda Rod [facility] 1.2.840.114 [id number] 00:00:00 00:00:00 Yumiko Venegas 350.1.13.10 [place] 4.2.7.2.686 Professio [phone] [address] 2019-01-23 2019-01-23 Telephone Brneda Rod [facility] 1.2.840.114 [id number] [facility] 00:00:00 00:00:00 [place] 350.1.13.10 [facility] [place] 4[place]2.[place] [phone] Vt dic[address] 2019-01-21 2019-01-21 Office Brenda Rod [facility] 1.2.840.114 [id number] [facility] 15:52:08 16:26:09 Visit C [place] 350.1.13.10 [facility] [place] 4[place]7.2.[place] [phone] [address] 2019-01-21 2019-01-21 [facility] Brenda Rod [facility] 1.2.840.114 [id number] 15:52:08 16:26:09 Visit C [place] 350.1.13.10 [place] 4.2.7.2.686 Professio [phone] [address] 2019-01-17 2019-01-17 Orders Doctor MONAE 1.2.840.114 [id number] [facility] 00:00:00 00:00:00 Only Unassigned, TOY 350.1.13.10 [facility] 4.2.7.2.686 Bryce as [phone] [address] 2019-01-17 2019-01-17 Orders Doctor MONAE 1.2.840.114 [id number] 00:00:00 00:00:00 Only Unassigned, TOY 350.1.13.10 [facility] 4.2.7.2.686 [phone] [facility] 2019-01-07 2019-01-07 Telephone Brenda Rod [facility] 1.2.840.114 [id number] [facility] 00:00:00 00:00:00 [place] 350.1.13.10 [facility] [place] [phone] [address] 2019-01-07 2019-01-07 Orders Doctor MONAE 1.2.840.114 [id number] [facility] 00:00:00 00:00:00 Only Unassigned, TOY 350.1.13.10 [facility] 4.2.7.2.686 Bryce as [phone] [address] 2019-01-02 2019-01-02 Orders Doctor MONAE 1.2.840.114 [id number] [facility] 00:00:00 00:00:00 Only Unassigned, TOY 350.1.13.10 [facility] 4.2.7.2.686 Bryce as [phone] [address] 2019-01-02 2019-01-02 Refill Brenda Rod [facility] 1.2.840.114 [id number] [facility] 00:00:00 00:00:00 [place] 350.1.13.10 [facility] [place] [phone] [address] 2019-01-02 2019-01-02 Orders Doctor LICONA 1.2.840.114 [id number] 00:00:00 00:00:00 Only Unassigned, TOY 350.1.13.10 [facility] 4.2.7.2.686 [phone] 2018-12-28 2018-12-28 Orders Doctor MONAE 1.2.840.114 [id number] [facility] 00:00:00 00:00:00 Only Unassigned, TOY 350.1.13.10 [facility] 4.2.7.2.686 Bryce as [phone] [address] 2018-12-28 2018-12-28 Orders Doctor MONAE 1.2.840.114 [id number] 46 00:00:00 00:00:00 Only Unassigned, TOY 350.1.13.10 [facility] 4.2.7.2.686 [phone] [facility] 2018-12-21 2018-12-21 Petra Brenda Rod [facility] 1.2.840.114 [id number] [facility] 00:00:00 00:00:00 [place] 350.1.13.10 [facility] [place] [phone] [address] 2018-12-17 2018-12-17 Orders Doctor LICONA 1.2.840.114 [id number] [facility] 00:00:00 00:00:00 Only Unassigned, TOY 350.1.13.10 [facility] 4.2.7.2.686 Bryce as [phone] [address] 2016-10-19 2016-10-19 Orders Doctor MONAE Raygoza2.840.114 [id number] 31 00:00:00 00:00:00 Only Unassigned, TOY 350.1.13.10 [facility] 4.2.7.2.686 Bryce as [phone] [address] 2016-10-19 2016-10-19 Orders Doctor MONAE Raygoza2.840.114 [id number] 31 00:00:00 00:00:00 Only Unassigned, TOY 350.1.13.10 [facility] 4.2.7.2.686 [phone] [facility] 2016-10-13 2016-10-13 Orders Doctor MONAE Raygoza2.840.114 [id number] 09 00:00:00 00:00:00 Only Unassigned, TOY 350.1.13.10 [facility] 4.2.7.2.686 Bryce as [phone] [address] Results Test Description Test Time Test Comments Results Result [facility] e Comments CT, CHEST, 2022-05-22 REFERRING MD: WITHOUT CONTRAST 11:39:00 ANIL SALVADOR Unlisted Reason [facility] for Exam - [place] - MEDICAL Click Yes and CENTERName: CARDONAKALEN Schwartz Enter Reason JON : 1955 Below->YesUnlis Sex: lisa Reason for M Exam->Hepatocel lular carcinoma FINAL REPORT CT Chest without contrast History: Hepatocellular carcinoma Comparison: 12/06/2021 Technique: serial axial imaging was performed without intravenous contrast as per departmental protocol. Multiplanar images are reconstructed and reviewed when [...] central airways. No pleural effusion or pneumothorax. Continued stability of an 8 mm groundglass attenuation nodule within the right lower lobe seen on axial image 34. The lungs are otherwise clear. Gynecomastia is again noted. Within the partially imaged upper abdomen, cirrhotic liver and enlarged spleen are noted. Esophageal varices are consistent with portal hypertension. No aggressive osseous lesion. Impression: 1. No definite metastatic disease in the chest.2. Continued stability of 8mm right lower lobe groundglass nodule. Signed: Ankit Gaines [facility] Verified Date/Time: 05/22/2022 11:39:18 , ABDOMEN, WITH 2022-05-21 REFERRING MD: 14:59:00 ANIL SALVADOR Unlisted Reason [facility] for Exam - [facility] - MEDICAL Click Yes and CENTERName: KALEN CARDONA Enter Reason JON : 1955 Below->YesUnlis Sex: lisa Reason for M Exam->Hepatocel lular carcinoma FINAL REPORT MRI of the abdomen with and without contrast Clinical History: Unlisted Reason for ExamHepatocellular carcinoma Technique: Multiplanar and multisequence MR images of the abdomen are obtained before and after intravenous contrast administration. Contrast is administered to evaluate neoplasm and vasculature. Comparison: December 06, 2021, August 26, 2021, April 29, 2021, January 21, 2021 Discussion: Liver is cirrhotic. *Stable treatment cavity in segment eight is now miniscule in size, no evidence of recurrent or residual disease. LR-TR nonviable. *An 8 mm treatment cavity in segment three is stable in size, it demonstrates stable mild rim enhancement. LR-TR nonviable. *A previously seen LI-RADS 3 observation in segment seven is not clearly identified on the current study. There is a 5 mm subcapsular arterially enhancing observation in segment six (arterial phase image 72), that is new, and another 4 mm observation in segment four without interval change (arterial phase image 85), they demonstrate no washout or pseudocapsule, LI-RADS 3. *Several additional mildly T1 hyperintense foci in the posterior right lobe probably represent dysplastic nodules, LI-RADS 2. No new suspicious mass lesion is identified. Hepatic vasculature is patent. Hepatic artery anatomy is conventional. The main portal vein measures up to 15 mm in diameter and large varices are present. No biliary ductal dilatation. Gallbladder appears normal. Spleen is enlarged and measures 16.5 cm sagittally. The pancreas, and adrenal glands are normal. Kidneys demonstrate no mass, or hydronephrosis. There is made of a large duodenal diverticulum. Visualized bowel is otherwise unremarkable. No significant ascites. No lymphadenopathy. No suspicious bony lesion. Impression: Stable treatment cavities in segment eight and segment three, LR-TR nonviable. A few additional subcentimeter arterially enhancing observations, LI-RADS 3, amenable to routine surveillance. No new suspicious liver mass. Cirrhosis and splenomegaly. Signed: Milton Royal Verified Date/Time: 05/21/2022 14:59:42 A FETOPROTEIN (AFP), TUMOR MARKER 2022-05-18 12:23:11 Test Item Value Reference Range Interpretation Comme nts ALPHA-FETOPROTEIN (BEAKER) (test code = 1094) < ng/mL <10.0 Pyridine Operator ID - MITCHCBC W/PLT COUNT & AUTO [id number] 11:00:53 Test Item Value Reference Range Interpretation Comments WHITE BLOOD CELL COUNT 4.9 K/ L 3.5-10.5 (BEAKER) (test code = 775) RED BLOOD CELL COUNT 4.34 M/ L 4.63-6.08 L (BEAKER) (test code = 761) HEMOGLOBIN (BEAKER) 10.9 GM/DL 13.7-17.5 L (test code = 410) HEMATOCRIT (BEAKER) 34.5 % 40.1-51.0 L (test code = 411) MEAN CORPUSCULAR VOLUME 80 fL 79-92 (BEAKER) (test code = 753) MEAN CORPUSCULAR 25.1 pg 25.7-32.2 L HEMOGLOBIN (BEAKER) (test code = 751) MEAN CORPUSCULAR 31.6 GM/DL 32.3-36.5 L HEMOGLOBIN CONC (BEAKER) (test code = 752) RED CELL DISTRIBUTION 18.0 % 11.6-14.4 H WIDTH (BEAKER) (test code = 412) PLATELET COUNT (BEAKER) 65 K/CU MM 150-450 L (test code = 756) MEAN PLATELET VOLUME Unable to report due (BEAKER) (test code = to abn ormal Platelet 754) population distribution. NUCLEATED RED BLOOD 0 /100 WBC 0-0 CELLS (BEAKER) (test code = 413) NEUTROPHILS RELATIVE 50 % PERCENT (BEAKER) (test code = 429) LYMPHOCYTES RELATIVE 33 % PERCENT (BEAKER) (test code = 430) MONOCYTES RELATIVE 12 % PERCENT (BEAKER) (test code = 431) EOSINOPHILS RELATIVE 3 % PERCENT (BEAKER) (test code = 432) BASOPHILS RELATIVE 1 % PERCENT (BEAKER) (test code = 437) NEUTROPHILS ABSOLUTE 2.43 K/ L 1.78-5.38 COUNT (BEAKER) (test code = 670) LYMPHOCYTES ABSOLUTE 1.62 K/ L 1.32-3.57 COUNT (BEAKER) (test code = 414) MONOCYTES ABSOLUTE 0.59 K/ L 0.30-0.82 COUNT (BEAKER) (test code = 415) EOSINOPHILS ABSOLUTE 0.15 K/ L 0.04-0.54 COUNT (BEAKER) (test code = 416) BASOPHILS ABSOLUTE 0.05 K/ L 0.01-0.08 COUNT (BEAKER) (test code = 417) IMMATURE 0.40 % 0.00-1.00 GRANULOCYTES-RELATIVE PERCENT (BEAKER) (test code = 2801) HEPATIC FUNCTION [id number] 11:00:04 Test Item Value Reference Range Interpretation Comments TOTAL PROTEIN (BEAKER) (test code = 6.1 gm/dL 6.0-8.3 770) ALBUMIN (BEAKER) (test code = 1145) 2.8 g/dL 3.5-5.0 L BILIRUBIN TOTAL (BEAKER) (test code 2.0 mg/dL 0.2-1.2 H = 377) BILIRUBIN DIRECT (BEAKER) (test 0.8 mg/dL 0.1-0.5 H code = 706) ALKALINE PHOSPHATASE (BEAKER) (test 200 U/L 40-150 H code = 346) AST (SGOT) (BEAKER) (test code = 37 U/L 5-34 H 353) ALT (SGPT) (BEAKER) (test code = 28 U/L 6-55 347) Pyridine Operator ID - BETTE GBASIC METABOLIC [id number] 10:59:58 Test Item Value Reference Range Interpretation Comments SODIUM (BEAKER) 135 meq/L 136-145 L (test code = 381) POTASSIUM 3.7 meq/L 3.5-5.1 (BEAKER) (test code = 379) CHLORIDE (BEAKER) 105 meq/L 98-107 (test code = 382) CO2 (BEAKER) 22 meq/L 22-29 (test code = 355) BLOOD UREA 6 mg/dL 7-21 L NITROGEN (BEAKER) (test code = 354) CREATININE 0.70 mg/dL 0.57-1.25 (BEAKER) (test code = 358) GLUCOSE RANDOM 266 mg/dL 70-105 H (BEAKER) (test code = 652) CALCIUM (BEAKER) 8.2 mg/dL 8.4-10.2 L (test code = 697) EGFR (BEAKER) 102 Interpretatio n of eGFR (test code = [...] glom erular filtration rate . Estimated GFR i s not applicable for dialysis patients Pyridine Operator ID - BETTE GPROTHROMBIN TIME/[id number] 10:51:01 Test Item Value Reference Range Interpretation Comments PROTIME (BEAKER) 16.9 seconds 11.9-14.2 H (test code = 759) INR (BEAKER) (test 1.46 See_Comment [Automat ed message] code = 370) The system [employer] generated this result transmitted ref erence range: <=5.90. The reference range was not used to int erpret this result as normal/abnormal . RECOMMENDED COUMADIN/WARFARIN INR THERAPY RANGESSTANDARD DOSE: 2.0 - 3.0 Includes: PROPHYLAXIS for venous thrombosis, systemic embolization; TREATMENT for venous thrombosis and/or pulmonary embolus.HIGH RISK: Target INR is 2.5-3.5 for patients with mechanical heart valves.[id number] 09:52:00 Test Item Value Reference Range Interpretation Comments Ferritin, Serum (test code = 2276-4) 16 ng/mL 24-380 L Lab Interpretation (test code = Abnormal 03210-0) [facility] with platelet count + automated [id number] 09:52:00 Test Item Value Reference Range Interpretation Comments WBC (test code = 7.2 See_Comment [Automated message] ) The system [employer] generated this result transmit lisa reference range : 3.8 - 10.8 Thousand /uL. The reference r mela was not used to interpret this result as normal/abnormal . RBC (test code = 789-8) 4.03 See_Comment L [Au tomated message] The system [employer] generated this result transmit lisa reference range [...] L [Aut omated message] ) The system [employer] generated this result transmit lisa reference range : 140 - 400 Thousand/ uL. The reference r mela was not used to interpret this result as normal/abnormal . MPV (test code = 7.5-12.5 Due to plat elet or 0359480) RBC variability in size or shapeth e result cannot b e reported accura tely. # Neutros (test code = 4284 See_Comment [Aut omated message] 20191222) The system [employer] generated this result transmit lisa reference range : 1,500 - 7,800 cells/uL. The reference range was not used to interpret this result as normal/abnormal . # Lymphs (test code = 1879 See_Comment [Auto mated message] 731-0) The system [employer] generated this result transmit lisa reference range : 850 - 3,900 cells/u L. The reference r mela was not used to interpret this result as normal/abnormal . # Monos (test code = 871 See_Comment [Autom ated message] ) The system [employer] generated this result transmit lisa reference range : 200 - 950 cells/uL. The reference range was not used to interpret this result as normal/abnormal . # Eos (test code = 108 See_Comment [Automat ed message] 711-2) The system [employer] generated this result transmit lisa reference range : 15 - 500 cells/uL. The reference range was not used to interpret this result as normal/abnormal . # Baso (test code = 58 See_Comment [Automa lisa message] 704-7) The system [employer] generated this result transmit lisa reference range : 0 - 200 cells/uL. T he reference range was not used to interpret this result as normal/abnormal . % Neutros (test code = 59.5 % ) % Lymphs (test code = 26.1 % 20191219) % Monos (test code = 12.1 % 1373298) % Eos (test code = 1.5 % 20191217) % Baso (test code = 0.8 % 20191218) Lab Interpretation (test Abnormal code = 90468-4) [facility] % sat. (without ferritin)2022-01-08 09:52:00 Test Item Value Reference Range Interpretation Comments Iron (test code = 21 See_Comment L [Automate d message] ) The system [employer] generated this result transmitted ref erence range: [...] See_Comment L [Au tomated message] code = 3216517) The system [employer] [facility] generated this result transmitted ref erence range: 20 - 48 % (calc). The ref erence range was not u sed to interpret this result as normal/abnor mal. Lab Interpretation (test Abnormal code = 51533-4) [facility] [id number] 09:52:00 Test Item Value Reference Range Interpretation Comments Platelet Estimate (test code = DECREASED ADEQUATE A 66932-2) Lab Interpretation (test code = Abnormal 94011-2) [facility] 09:52:00 Test Item Value Reference Range Interpretation Comments Ferritin, Serum (test code = 2276-4) 16 ng/mL 24-380 L Lab Interpretation (test code = Abnormal 11990-8) [facility] + automated [id number] 09:52:00 Test Item Value Reference Range Interpretation Comments WBC (test code = 7.2 See_Comment [Automated message] ) The system [employer] generated this result transmit lisa reference range : 3.8 - 10.8 Thousand /uL. The reference r mela was not used to interpret this result as normal/abnormal . RBC (test code = 789-8) 4.03 See_Comment L [Au tomated message] The system [employer] generated this result transmit lisa reference range [...] L [Aut omated message] ) The system [employer] generated this result transmit lisa reference range : 140 - 400 Thousand/ uL. The reference r mela was not used to interpret this result as normal/abnormal . MPV (test code = 7.5-12.5 Due to plat elet or 5393466) RBC variability in size or shapeth e result cannot b e reported accura tely. # Neutros (test code = 4284 See_Comment [Aut omated message] 20191222) The system [employer] generated this result transmit lisa reference range : 1,500 - 7,800 cells/uL. The reference range was not used to interpret this result as normal/abnormal . # Lymphs (test code = 1879 See_Comment [Auto mated message] 731-0) The system [employer] generated this result transmit lisa reference range : 850 - 3,900 cells/u L. The reference r mela was not used to interpret this result as normal/abnormal . # Monos (test code = 871 See_Comment [Autom ated message] ) The system [employer] generated this result transmit lisa reference range : 200 - 950 cells/uL. The reference range was not used to interpret this result as normal/abnormal . # Eos (test code = 108 See_Comment [Automat ed message] 711-2) The system [employer] generated this result transmit lisa reference range : 15 - 500 cells/uL. The reference range was not used to interpret this result as normal/abnormal . # Baso (test code = 58 See_Comment [Automa lisa message] 704-7) The system [employer] generated this result transmit lisa reference range [...] 20191218) Lab Interpretation (test Abnormal code = 52472-3) [facility], % sat. (without ferritin)2022-01-08 09:52:00 Test Item Value Reference Range Interpretation Comments Iron (test code = 21 See_Comment L [Automate d message] 4979528) The system [employer] generated this result transmitted ref erence range: 50 - 180 mcg/dL. The ref erence range was not u sed to interpret this result as normal/abnor mal. Iron Bind.Cap.(TIBC) 309 See_Comment [Autom ated message] (test code = 4823669) The sy stem which generated this result transmitted ref erence range: 250 - 42 5 mcg/dL (calc). The reference range was not used to int erpret this result as normal/abnormal . Iron % Saturation (test 7 See_Comment L [Au tomated message] code = 3018420) The system [facility] generated this result transmitted ref erence range: 20 - 48 % (calc). The ref erence range was not u sed to interpret this result as normal/abnor mal. Lab Interpretation (test Abnormal code = 56576-5) [facility] [id number] 09:52:00 Test Item Value Reference Range Interpretation Comments Platelet Estimate (test code = DECREASED ADEQUATE A 54810-0) Lab Interpretation (test code = Abnormal 42428-1) [facility] 09:52:00 Test Item Value Reference Range Interpretation Comments Ferritin, Serum (test code = 2276-4) 16 ng/mL 24-380 L Lab Interpretation (test code = Abnormal 97997-0) [facility] with platelet count + automated [id number] 09:52:00 Test Item Value Reference Range Interpretation Comments WBC (test code = 7.2 See_Comment [Automated message] ) The system [employer] generated this result transmit lisa reference range : 3.8 - 10.8 Thousand /uL. The reference r mela was not used to interpret this result as normal/abnormal . RBC (test code = 789-8) 4.03 See_Comment L [Au tomated message] The system [employer] generated this result transmit lisa reference range [...] L [Aut omated message] ) The system [employer] generated this result transmit lisa reference range : 140 - 400 Thousand/ uL. The reference r mela was not used to interpret this result as normal/abnormal . MPV (test code = 7.5-12.5 Due to plat elet or 2846502) RBC variability in size or shapeth e result cannot b e reported accura tely. # Neutros (test code = 4284 See_Comment [Aut omated message] 20191222) The system [employer] generated this result transmit lisa reference range : 1,500 - 7,800 cells/uL. The reference range was not used to interpret this result as normal/abnormal . # Lymphs (test code = 1879 See_Comment [Auto mated message] 731-0) The system [employer] generated this result transmit lisa reference range : 850 - 3,900 cells/u L. The reference r mela was not used to interpret this result as normal/abnormal . # Monos (test code = 871 See_Comment [Autom ated message] ) The system [employer] generated this result transmit lisa reference range : 200 - 950 cells/uL. The reference range was not used to interpret this result as normal/abnormal . # Eos (test code = 108 See_Comment [Automat ed message] 1-2) The system [employer] generated this result transmit lisa reference range : 15 - 500 cells/uL. The reference range was not used to interpret this result as normal/abnormal . # Baso (test code = 58 See_Comment [Automa lisa message] 4-7) The system [employer] generated this result transmit lisa reference range [...] 20191218) Lab Interpretation (test Abnormal code = 96919-3) [facility], % sat. (without ferritin)2022-01-08 09:52:00 Test Item Value Reference Range Interpretation Comments Iron (test code = 21 See_Comment L [Automate d message] 3217492) The system [employer] generated this result transmitted ref erence range: 50 - 180 mcg/dL. The ref erence range was not u sed to interpret this result as normal/abnor mal. Iron Bind.Cap.(TIBC) 309 See_Comment [Autom ated message] (test code = 4917734) The sy stem which generated this result transmitted ref erence range: 250 - 42 5 mcg/dL (calc). The reference range was not used to int erpret this result as normal/abnormal . Iron % Saturation (test 7 See_Comment L [Au tomated message] code = 0489045) The system [employer] [facility] generated this result transmitted ref erence range: 20 - 48 % (calc). The ref erence range was not u sed to interpret this result as normal/abnor mal. Lab Interpretation (test Abnormal code = 08624-2) [facility] [id number] 09:52:00 Test Item Value Reference Range Interpretation Comments Platelet Estimate (test code = DECREASED ADEQUATE A 38083-0) Lab Interpretation (test code = Abnormal 16068-4) [facility] 09:52:00 Test Item Value Reference Range Interpretation Comments Ferritin, Serum (test code = 2276-4) 16 ng/mL 24-380 L Lab Interpretation (test code = Abnormal 99586-4) [facility] + automated [id number] 09:52:00 Test Item Value Reference Range Interpretation Comments WBC (test code = 7.2 See_Comment [Automated message] ) The system [employer] generated this result transmit lisa reference range : 3.8 - 10.8 Thousand /uL. The reference r mela was not used to interpret this result as normal/abnormal . RBC (test code = 789-8) 4.03 See_Comment L [Au tomated message] The system [employer] generated this result transmit lisa reference range [...] L [Aut omated message] ) The system [employer] generated this result transmit lisa reference range : 140 - 400 Thousand/ uL. The reference r mela was not used to interpret this result as normal/abnormal . MPV (test code = 7.5-12.5 Due to plat elet or 8951790) RBC variability in size or shapeth e result cannot b e reported accura tely. # Neutros (test code = 4284 See_Comment [Aut omated message] 20191222) The system [employer] generated this result transmit lisa reference range : 1,500 - 7,800 cells/uL. The reference range was not used to interpret this result as normal/abnormal . # Lymphs (test code = 1879 See_Comment [Auto mated message] 731-0) The system [employer] generated this result transmit lisa reference range : 850 - 3,900 cells/u L. The reference r mela was not used to interpret this result as normal/abnormal . # Monos (test code = 871 See_Comment [Autom ated message] ) The system [employer] generated this result transmit lisa reference range : 200 - 950 cells/uL. The reference range was not used to interpret this result as normal/abnormal . # Eos (test code = 108 See_Comment [Automat ed message] 711-2) The system [employer] generated this result transmit lisa reference range : 15 - 500 cells/uL. The reference range was not used to interpret this result as normal/abnormal . # Baso (test code = 58 See_Comment [Automa lisa message] 704-7) The system [employer] generated this result transmit lisa reference range [...] 20191218) Lab Interpretation (test Abnormal code = 09045-0) [facility], % sat. (without ferritin)2022-01-08 09:52:00 Test Item Value Reference Range Interpretation Comments Iron (test code = 21 See_Comment L [Automate d message] ) The system [employer] generated this result transmitted ref erence range: 50 - 180 mcg/dL. The ref erence range was not u sed to interpret this result as normal/abnor mal. Iron Bind.Cap.(TIBC) 309 See_Comment [Autom ated message] (test code = 8067760) The sy stem which generated this result transmitted ref erence range: 250 - 42 5 mcg/dL (calc). The reference range was not used to int erpret this result as normal/abnormal . Iron % Saturation (test 7 See_Comment L [Au tomated message] code = 5887830) The system w hich generated this result transmitted ref erence range: 20 - 48 % (calc). The ref erence range was not u sed to interpret this result as normal/abnor mal. Lab Interpretation (test Abnormal code = 05354-4) [facility] [id number] 09:52:00 Test Item Value Reference Range Interpretation Comments Platelet Estimate (test code = DECREASED ADEQUATE A 27150-4) Lab Interpretation (test code = Abnormal 70382-2) 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 The reference range was not used to interpret this result as normal/abnormal . MPV (test code = Not Measure d 15016-9) NRBC/100 WBC (test See_Comment [Automat ed code = 5988647399) message] The system which generated this result transmitted reference range : 0.0 - 10.0 /100 WBCs. The reference range was not used to interpret this result as normal/abnormal . NRBC x10^3 (test code See_Comment [Auto mated = 4683852253) message] The system which generated this result transmitted reference range : 10*3/?L. The reference range was not used to interpret this result as normal/abnormal . GRAN MAT (NEUT) % 85.5 % (test code = 770-8) IMM GRAN % (test code 0.50 % = 6573085960) LYMPH % (test code = 7.6 % 736-9) MONO % (test code = 5.8 % 5905-5) EOS % (test code = 0.1 % 713-8) BASO % (test code = 0.5 % 706-2) GRAN MAT x10^3(ANC) 9.28 10*3/uL 1.99-6.95 H (test code = 2961762700) IMM GRAN x10^3 (test 0.05 10*3/uL 0-0.06 code = 5930639916) LYMPH x10^3 (test 0.82 10*3/uL 1.09-3.23 L code = 731-0) MONO x10^3 (test code 0.63 10*3/uL 0.36-1.02 = 742-7) EOS x10^3 (test code 0.06-0.53 L = 711-2) BASO x10^3 (test code 0.05 10*3/uL 0.01-0.09 = 704-7) PLT ESTIMATE (test Decreased Normal A code = 9317-9) MADALYN (test code = MADALYN) No Platelet clumps seen Lab Interpretation Abnormal (test code = 58172-3) [facility] METABOLIC PANEL (NA, K, CL, CO2, GLUCOSE, BUN, CREATININE, CA)2021-12-26 21:51:09 Test Item Value Reference Range Interpretation Comments NA (test code = 134 mmol/L 135-145 L 9356621230) K (test code = 3.7 mmol/L 3.5-5 0637143297) CL (test code = 105 mmol/L 98-108 3836041513) CO2 TOTAL (test code = 21 mmol/L 23-31 L 8621268766) AGAP (test code = 2-16 7851160072) BUN (test code = 5 mg/dL 7-23 L 3693861475) GLUCOSE (test code = 257 mg/dL 70-110 H 1802341150) CREATININE (test code = 0.61 mg/dL 0.6-1.25 2041312490) CALCIUM (test code = 7.9 mg/dL 8.6-10.6 L 3733353897) eGFR (test code = mL/min/1.73m2 6957839727) MADALYN (test code = MADALYN) Association of [...] tests). Lab Interpretation Abnormal (test code = 76491-6) [facility]OLIC [id number] 13:28:32 Test Item Value Reference Range Interpretation [...] high >=90 G2 Mildly decreased 60-89 G3a Mild ly to moderately 45-5 9 G3b Moderately to [...] not appl icable for dialysis patien ts Pyridine Operator ID - BSSpecimen slightly ictericHEPATIC FUNCTION [id number] 13:28:32 Test Item Value Reference Range Interpretation [...] (test code = 21 U/L 6-55 347) Pyridine Operator ID - Jarrettn slightly ictericPROTHROMBIN TIME/[id number] 13:21:12 Test Item Value Reference Range Interpretation Comments PROTIME (BEAKER) 17.5 seconds 11.9-14.2 H (test code = 759) INR (BEAKER) (test 1.46 See_Comment [Automat ed message] code = 370) The system [employer] generated this result transmitted ref erence range: <=5.90. The reference range was not used to int erpret this result as normal/abnormal . RECOMMENDED COUMADIN/WARFARIN INR THERAPY RANGESSTANDARD DOSE: 2.0 - 3.0 Includes: PROPHYLAXIS for venous thrombosis, systemic embolization; TREATMENT for venous thrombosis and/or pulmonary embolus.HIGH RISK: Target INR is 2.5-3.5 for patients with mechanical heart valves.CBC W/PLT COUNT & AUTO [id number] 13:14:24 Test Item Value Reference Range Interpretation [...] (BEAKER) (test code = 2801) MR, ABDOMEN, [id number] 18:24:00REFERRING : ANIL SALVADOR Include Abdominal [facility]essels[facility]Name[facility] : 1955 Sex: [...] Verified Date/Time: 12/08/2021 18:24:59 CT, CHEST, WITHOUT [id number] 12:41:00REFERRING MD: ANIL SALVADOR Mets work up [facility] : 1955 Sex: [...] pneumothorax. 8mm focal groundglass attenuation nodule within the right lower lobe (axial image 28) is unchanged. The lungs are otherwise clear. Significant gynecomastia. Within the upper abdomen, cirrhotic liver and large esophageal varices are noted. No aggressiveosseous lesion. Impression: 1. No definite metastatic disease in the chest.2. Continued stability of8 mm groundglass right lower lobe nodule. Signed: Ankit Gaines MDReport Verified Date/Time: 12/08/2021 12:41:29 ALPHA FETOPROTEIN (AFP), TUMOR MARKER 2021-12-06 17:08:44 Test Item Value Reference Range Interpretation Comments ALPHA-FETOPROTEIN (BEAKER) (test 2.3 ng/mL <10.0 code = 1094) Pyridine Operator ID - DBBASI METABOLIC [id number] 16:53:56 Test Item Value Reference Range Interpretation [...] S NOT APPLICABLE FOR DIALYSIS PATIEN TS. Pyridine Operator ID - BSSpecimen slightly ictericHEPATIC FUNCTION [id number] 16:53:56 Test Item Value Reference Range Interpretation [...] (test code = 22 U/L 6-55 347) Pyridine Operator ID - BSSpecimen slightly ictericPROTHROMBIN TIME/[id number] 16:43:33 Test Item Value Reference Range Interpretation [...] mechanical heart valves.CBC W/PLT COUNT & AUTO [id number] 16:42:35 Test Item Value Reference Range Interpretation [...] = 2801) MR, MRI, METASTATIC SURVEY/BONE MARROW [id number] 13:54:00REFERRING MD: ANIL SALVADOR [facility] work up Reason for Exam:->hcc, cirrhosis [facility] : 1955 [...] Royal Verified Date/Time: 12/06/2021 13:54:32 Reading Location: [facility] B1 C013X Ortho Consult Reading Room HEREDITARY [id number] 10:46:31 Test Item Value Reference Interpretation Comments Range DNA Mutation See Below RESULT: NEGATIV E Analysis Interpretation: DNA testing (test code = indicates that this individual 8941308) isnegative for the C282Y and H63D pathogenic [...] hogenic variants in the HFEgene, C282Y (NM 208162.2: c .845G>A, p.Hks363Bru) an d H63D (LB764334.2: c. 187C>G, p.Ups46Ynf), th at are commonly associated with HH. [...] relevant history,and oth er laboratory data. Health tn re providers, please contact your local [employer] 'genetic counselor or [facility] [phone] ( ) forassistance with the interp retation of these results. This test was developed and i ts analytical performancechar acteristics have been deter mined by [facility]. It has not been cleare d or approved [facility]. This ass ay has been validated pursu ant to the CLIA regulationsand is used for clinical purpos es. For more information, pl ease refer tohttp://educat ion.MEDNAXo Cernosticss.com/faq/h emochromatosis. (This linkis be ing provided for information al/educational purposes only.) Reviewed and signed by Liane Phillips MD, MHA , FACMG, CGMBS, Signed on 09/09 at 10:42 MADALYN (test Performing Lab code = MADALYN) EZ [facility] [address] [place] [address] Aung Salazar MD, PhD, SANDRA [facility] CenterHEREDITARY [id number] 10:46:31 Test Item Value Reference Interpretation Comments Range DNA Mutation See Below RESULT: NEGATIV E Analysis Interpretation: DNA testing (test code = indicates that this individual 6678066) isnegative for the C282Y and H63D pathogenic [...] hogenic variants in the HFEgene, C282Y (NM 071129.2: c .845G>A, p.Wwv268Iqx) an d H63D (HQ484658.2: c. 187C>G, p.Klu17Vrs), th at are commonly associated with HH. [...] ca re providers, please contact your local Narviiti 'genetic counselor or marlene myers [phone] ( ) forassistance with the interp retation of these results. This test was developed and i ts analytical performancechar acteristics have been deter mined by [employer]. It has not been cleare d or approved byA. This ass ay has been validated pursu ant to the CLIA regulationsand is used for clinical purpos es. For more information, pl ease refer tohttp://educat ion.JJ PHARMA.Fundgrazing/faq/h emochromatosis. (This linkis be ing provided for information al/educational purposes only.) Reviewed and signed by Liane Phillips MD, MHA , ARNEL, DESIRES, Signed on 09/09 at 10:42 MADALYN (test Performing Lab code = MADALYN) EZ [facility] [address] [place] [address] Aung Salazar MD, PhD, SANDRA [facility] CenterHEREDITARY [id number] 10:46:31 Test Item Value Reference Interpretation Comments Range DNA Mutation See Below RESULT: NEGATIV E Analysis Interpretation: DNA testing (test code = indicates that this individual 3456448) isnegative for the C282Y and H63D pathogenic [...] clinical information rev iewed Karey Phillips MD, LIVIAA, FACMG, CGMBS. DETAILED ASSAY INFORMATION: He reditary [...] hogenic variants in the HFEgene, C282Y (NM 700667.2: c .845G>A, p.Rfo955Tcu) an d H63D (PF179677.2: c. 187C>G, p.Ecw99Gui), th at are commonly associated with HH. [...] your local [employer] 'genetic counselor or [facility] [phone] ( ) forassistance with the interp retation of these results. This test was developed and i ts analytical performancechar acteristics have been deter mined by [employer] [facility] Miguelangel woods. It has not been cleare d or approved byA. This ass ay has been validated pursu ant to the CLIA regulationsand is used for clinical purpos es. For more information, pl ease refer tohttp://educat ion.XSteach.comdiagnBIOeCONs.com/faq/h emochromatosis. (This linkis be ing provided for information al/educational purposes only.) Reviewed and signed by Liane Phillips MD, MHA , FAC, MBS, Signed on 09/09 at 10:42 MADALYN (test Performing Lab code = MADALYN) EZ [facility] [address] [facility] [place] [address] Aung Salazar MD, PhD, SANDRA [facility] CenterHEREDITARY [id number] 10:46:31 Test Item Value Reference Interpretation Comments Range DNA Mutation See Below RESULT: NEGATIV E Analysis Interpretation: DNA testing (test code = indicates that this individual 0548497) isnegative for the C282Y and H63D pathogenic [...] clinical information rev iewed byLam Phillips MD, A, FAC, [facility]. DETAILED ASSAY INFORMATION: He reditary hemochromatosis (HH) [...] hogenic variants in the HFEgene, C282Y (NM 081320.2: c .845G>A, p.Bmc321Bla) an d H63D (OY052198.2: c. 187C>G, p.Mhb39Fkb), th at are commonly associated with HH. [...] ca re providers, please contact your local [employer] 'genetic counselor or [facility] [phone] ( ) forassistance with the interp retation of these results. This test was developed and i ts analytical performancechar acteristics have been deter mined by [facility]leyla morales. It has not been cleare d or approved [facility]. This ass ay has been validated pursu ant to the CLIA regulationsand is used for clinical purpos es. For more information, pl ease refer tohttp://educat ion.XSteach.comdiagno Cernosticss.com/faq/h emochromatosis. (This linkis be ing provided for information al/educational purposes only.) Reviewed and signed by Liane Phillips MD, MHA , FACMG, CGMBS, Signed on 09/09 at 10:42 MADALYN (test Performing Lab code = MADALYN) EZ [facility] [address] [place] [address] Aung Salazar MD, PhD, SANDRA [facility] CenterMR, ABDOMEN, [id number] 14:51:00REFERRING : ANIL LEROYT Include Abdominal Vessels [facility] : 1955 Sex: [...] Verified Date/Time: 09/01/2021 14:51:17 CT, CHEST, WITHOUT [id number] 16:16:00REFERRING MD: ANIL SALVADOR Mets work up [facility] : 1955 Sex: MFINAL [...] MDReport Verified Date/Time: 08/31/2021 16:16:00 Reading Location: [facility] Women ALPHA FETOPROTEIN (AFP), TUMOR MARKER 2021-08-26 11:47:11 Test Item Value Reference Range Interpretation Comments ALPHA-FETOPROTEIN (BEAKER) (test code < ng/mL <10.0 = 1094) Pyridine Operator ID - BSBASIC METABOLIC [id number] 11:20:03 Test Item Value Reference Range Interpretation [...] S NOT APPLICABLE FOR DIALYSIS PATIEN TS. Pyridine Operator ID - PIAYA LSpecimen slightly ictericHEPATIC FUNCTION [id number] 11:20:03 Test Item Value Reference Range Interpretation [...] (test code = 26 U/L 6-55 347) Pyridine Operator ID - PIAYA LSpecimen slightly ictericPROTHROMBIN TIME/[id number] 10:58:57 Test Item Value Reference Range Interpretation Comments PROTIME (BEAKER) 17.2 seconds 11.9-14.2 H (test code = 759) INR (BEAKER) (test 1.42 See_Comment [Automat ed message] code = 370) The system [employer] generated this result transmitted ref erence range: <=5.90. The reference range was not used to int erpret this result as normal/abnormal . RECOMMENDED COUMADIN/WARFARIN INR THERAPY RANGESSTANDARD DOSE: 2.0 - 3.0 Includes: PROPHYLAXIS for venous thrombosis, systemic embolization; TREATMENT for venous thrombosis and/or pulmonary embolus.HIGH RISK: Target INR is 2.5-3.5 for patients with mechanical heart valves.CBC W/PLT COUNT & AUTO [id number] 10:56:22 Test Item Value Reference Range Interpretation [...] (BEAKER) (test code = 2801) Comprehensive metabolic [id number] 16:54:00 Test Item Value Reference Range Interpretation [...] See_Comment [Autom ated message] (test code = 4449183) The sy stem which generated this result transmitted ref erence range: > OR = 6 0 mL/min/1.73m2. The reference range was not used to int erpret this result as normal/abnormal . eGFR If Africn Am 121 See_Comment [Automate d message] (test code = 1112595) The sy stem which generated this result [...] mal. Sodium (test code = 137 mmol/L 135-966 8546033) Potassium, Serum 3.8 mmol/L 3.5-5.3 (test code = 20101014) Chloride (test code = 107 mmol/L 98-872 5224923) Carbon Dioxide, Total 22 mmol/L 20-32 (test code = ) Calcium, Serum (test 8.1 mg/dL 8.6-10.3 L code = 20100926) Protein, Total, Serum 6.0 g/dL 6.1-8.1 L (test code = 20101003) Albumin (test code = 3.0 g/dL 3.6-5.1 L ) GLOBULIN (QUEST) 3.0 See_Comment [Automated message] (test code = 6930609) The sy stem which generated this result [...] 1.4 mg/dL 0.2-1.2 H (test code = 0592578) Alkaline Phosphatase, 103 U/L 35-144 S (test code = 6768-6) AST (SGOT) (test code 24 U/L 10-35 = 20101009) ALT (SGPT) (test code 15 U/L 9-46 = ) Lab Interpretation Abnormal (test code = 22835-9) [facility] CenterComprehensive metabolic [id number] 16:54:00 Test Item Value Reference Range Interpretation Comments Glucose (test code = 157 mg/dL 65-99 H Fastin g reference ) interval For so karla without known diabetes, a glucosevalue >1 25 mg/dL indicates that they may havedi abetes and this should be confirmed with afollow-up test . BUN (test code = 7 mg/dL 7-25 20100929) Creatinine (test code 0.63 mg/dL 0.70-1.25 L For pa eulas >49 years = 20130722) of age, the ref erence limitfor Creati nine is approximately 1 3% higher for peopleidentifie d as -Christelle n. eGFR If NonAfricn Am 104 See_Comment [Autom ated message] (test code = 8018287) The sy stem which generated this result transmitted ref erence range: > OR = 6 0 mL/min/1.73m2. The reference range was not used to int erpret this result as normal/abnormal . eGFR If Africn Am 121 See_Comment [Automate d message] (test code = 0105774) The sy stem which generated this result transmitted ref erence range: > OR = 6 0 mL/min/1.73m2. The reference range was not used to int erpret this result as normal/abnormal . BUN/Creatinine Ratio 11 See_Comment [Autom ated message] (test code = 6174808) The sy stem which generated this result transmitted ref erence range: 6 - 22 ( calc). The reference r mela was not used to interpret this result as normal/abnor mal. Sodium (test code = 137 mmol/L 135-024 3249193) Potassium, Serum 3.8 mmol/L 3.5-5.3 (test code = 20101014) Chloride (test code = 107 mmol/L 98-221 7972073) Carbon Dioxide, Total 22 mmol/L 20-32 (test code = ) Calcium, Serum (test 8.1 mg/dL 8.6-10.3 L code = 6842892) Protein, Total, Serum 6.0 g/dL 6.1-8.1 L (test code = 20101003) Albumin (test code = 3.0 g/dL 3.6-5.1 L ) GLOBULIN (QUEST) 3.0 See_Comment [Automated message] (test code = 0146865) The sy stem which generated this result [...] ) Lab Interpretation Abnormal (test code = 75803-1) [facility] CenterCom[facility] [id number] 16:54:00 Test Item Value Reference Range Interpretation Comments Glucose (test code = 157 mg/dL 65-99 H Fastin g reference 3900297) interval For so meone without known diabetes, [...] See_Comment [Autom ated message] (test code = 2193247) The sy stem which generated this result transmitted ref erence range: > OR = 6 0 mL/min/1.73m2. The reference range was not used to int erpret this result as normal/abnormal . eGFR If Africn Am 121 See_Comment [Automate d message] (test code = 6929297) The sy stem which generated this result [...] mal. Sodium (test code = 137 mmol/L 135-103 0157859) Potassium, Serum 3.8 mmol/L 3.5-5.3 (test code = 20101014) Chloride (test code = 107 mmol/L 98-799 9974489) Carbon Dioxide, Total 22 mmol/L 20-32 (test code = ) Calcium, Serum (test 8.1 mg/dL 8.6-10.3 L code = 20100926) Protein, Total, Serum 6.0 g/dL 6.1-8.1 L (test code = 20101003) Albumin (test code = 3.0 g/dL 3.6-5.1 L ) GLOBULIN (QUEST) 3.0 See_Comment [Automated message] (test code = 8733777) The sy stem which generated this result [...] 1.4 mg/dL 0.2-1.2 H (test code = 2675849) Alkaline Phosphatase, 103 U/L 35-144 S (test code = 6768-6) AST (SGOT) (test code 24 U/L 10-35 = 20101009) ALT (SGPT) (test code 15 U/L 9-46 = ) Lab Interpretation Abnormal (test code = 78716-1) [facility] CenterCom[facility] [id number] 16:54:00 Test Item Value Reference Range Interpretation Comments Glucose (test code = 157 mg/dL 65-99 H Fastin g reference ) interval For so meone without known diabetes, a glucosevalue >1 25 mg/dL indicates that they may havedi abetes and this should be confirmed with afollow-up test . BUN (test code = 7 mg/dL -20100929) Creatinine (test code 0.63 mg/dL 0.70-1.25 L For pa eulas >49 years = 20130722) of age, the ref erence limitfor Creati nine is approximately 1 3% higher for peopleidentifie d as -Christelle n. eGFR If NonAfricn Am 104 See_Comment [Autom ated message] (test code = 7620883) The sy stem which generated this result transmitted ref erence range: > OR = 6 0 mL/min/1.73m2. The reference range was not used to int erpret this result as normal/abnormal . eGFR If Africn Am 121 See_Comment [Automate d message] (test code = 2485308) The sy stem which generated this result transmitted ref erence range: > OR = 6 0 mL/min/1.73m2. The reference range was not used to int erpret this result as normal/abnormal . BUN/Creatinine Ratio 11 See_Comment [Autom ated message] (test code = 7202549) The sy stem which generated this result transmitted ref erence range: 6 - 22 ( calc). The reference r mela was not used to interpret this result as normal/abnor mal. Sodium (test code = 137 mmol/L 135-173 1233038) Potassium, Serum 3.8 mmol/L 3.5-5.3 (test code = 20101014) Chloride (test code = 107 mmol/L 98-792 7597718) Carbon Dioxide, Total 22 mmol/L 20-32 (test code = ) Calcium, Serum (test 8.1 mg/dL 8.6-10.3 L code = 20100926) Protein, Total, Serum 6.0 g/dL 6.1-8.1 L (test code = 20101003) Albumin (test code = 3.0 g/dL 3.6-5.1 L ) GLOBULIN (QUEST) 3.0 See_Comment [Automated message] (test code = 2234201) The sy stem which generated this result transmitted ref erence range: 1.9 - 3. 7 g/dL (calc). The ref erence range was not u sed to interpret this result as normal/abnor mal. Albumin Globulin 1.0 See_Comment [Automated message] Ratio (test code = The syste m which 9-0) generated this result transmitted ref erence range: [...] ) Lab Interpretation Abnormal (test code = 26946-3) [facility]MR, [facility]BDOMEN, [id number] 14:52:00REFERRING : ANIL SALVADOR Include Abdominal Vessels [facility] : 1955 [...] Mckeon Verified Date/Time: 05/03/2021 14:52:21 Reading Location: [address] Transitional Reading Room CT, CHEST, WITHOUT CONTRAST 2021-04-29 16:45:00REFERRING MD: ANIL SALVADOR Mets work up [facility] : 1955 Sex: [...] 04/29/2021 16:45:28 Reading Location: [facility] C013Y CT Body Reading Room BONE AND/OR JOINT IMAGING, WHOLE [id number] 14:33:00REFERRING MD: ANIL SALVADOR METS WORK [facility] : 1955 Sex: MFINAL REPORT PROCEDURE: BONE SCAN, WHOLE BODY CPT CODE: 60118 INDICATION: HCC PROTOCOL: 21.8 mCi of Tc-99m [...] Owen MDReport Verified Date/Time: 04/29/2021 14:33:51 Reading Location:[address] Reading Room Basic Metabolic [id number] 12:07:01 Test Item Value Reference Range Interpretation Comments Sodium (test code = 134 meq/L 136-145 L 2951-2) Potassium (test code 4.5 meq/L 3.5-5.1 = 2823-3) Chloride (test code = 100 meq/L 98-107 2075-0) CO2 (test code = 22 meq/L 22-29 2028-9) BUN (test code = 11 mg/dL 7-21 3094-0) Creatinine (test code 0.82 mg/dL 0.57-1.25 = 2160-0) Glucose (test code = 124 mg/dL 70-105 H 2345-7) Calcium (test code = 8.9 mg/dL 8.4-10.2 48444-4) EGFR (test code = 95 mL/min/1.73 [place] [address]-2) NOT ACCURATE CREATININE CLEARANCE IN PREDICTING GLOMERULAR FILTRATION RATE . ESTIMATED GFR I S NOT APPLICABLE FOR DIALYSIS PATIENTS. MADALYN (test code = MADALYN) Pyridine Operator ID - ELOY MSpecimen slightly icteric Lab Interpretation Abnormal (test code = 06434-6) [facility] CenterHepatic function [id number] 12:07:01 Test Item Value Reference Range Interpretation Comments Protein, Total (test 7.3 See_Comment [Autom ated code = 2885-2) message] The system which generated this result transmitted reference range : 6.0 - 8.3 gm/dL . The reference range was not used to interpr et this result as normal/abnormal . Albumin (test code = 3.3 g/dL 3.5-5.0 L 34512-2) Total Bilirubin (test 1.8 mg/dL 0.2-1.2 H code = 1974-2) Bilirubin, Direct 0.8 mg/dL 0.1-0.5 H (test code = 1967-7) Alkaline Phosphatase 148 U/L 40-150 (test code = 6768-6) AST (test code = 31 U/L 5-34 1920-8) ALT (test code = 23 U/L 6-55 1742-6) MADALYN (test code = MADALYN) Pyridine Operator ID - ELOY MSpecimen slightly icteric Lab Interpretation Abnormal (test code = 27004-8) [facility] METABOLIC [id number] 12:07:01 Test Item Value Reference Range Interpretation [...] 697) EGFR (BEAKER) (test 95 mL/min/1.73 ESTIMA LSIA GFR IS code = 1092) sq m NOT ACCURATE CREATININE CLEARANCE IN PREDICTING GLOMERULAR FILTRATION RATE . ESTIMATED GFR I S NOT APPLICABLE FOR DIALYSIS PATIEN TS. Pyridine Operator ID - ELOY MSpecimen slightly ictericHEPATIC FUNCTION [id number] 12:07:01 Test Item Value Reference Range Interpretation [...] (test code = 23 U/L 6-55 347) Pyridine Operator LEOPOLDO LYONS MSpecimen slightly ictericAlpha fetoprotein (AFP), tumor [id number] 11:59:44 Test Item Value Reference Range Interpretation Comments Alpha-Fetoprotein (test 2.5 ng/mL <10.0 code = 1834-1) MADALYN (test code = MADALYN) Pyridine Operator LEOPOLDO LYONS M Lab Interpretation (test Normal code = 06874-1) [facility] CenterALPHA FETOPROTEIN (AFP), TUMOR [id number] 11:59:44 Test Item Value Reference Range Interpretation Comments ALPHA-FETOPROTEIN (BEAKER) (test 2.5 ng/mL <10.0 code = 1094) Pyridine Operator LEOPOLDO LYONS MProthrombin time/[id number] 11:32:54 Test Item Value Reference Interpretation Comments [...] valves. Lab Interpretation Abnormal (test code = 12226-8) [facility]/[id number] 11:32:54 Test Item Value Reference Range Interpretation Comments PROTIME (BEAKER) 15.7 seconds 11.9-14.2 H (test code = 759) INR (BEAKER) (test 1.27 See_Comment [Automat ed message] code = 370) The system [employer] generated this result transmitted ref erence range: <=5.90. The reference range was not used to int erpret this result as normal/abnormal . RECOMMENDED COUMADIN/WARFARIN INR THERAPY RANGESSTANDARD DOSE: 2.0 - 3.0 Includes: PROPHYLAXIS for venous thrombosis, systemic embolization; TREATMENT for venous thrombosis and/or pulmonary embolus.HIGH RISK: Target INR is 2.5-3.5 for patients with mechanical heart valves.CBC with platelet count + automated [id number] 11:25:26 Test Item Value Reference Range Interpretation Comments WBC (test code = 6690-2) 6.3 See_Comment [A utomated message] The system [employer] generated this result transmitted ref erence range: 3.5 - 10 .5 K/L. The refe rence range was not u sed to interpret this result as normal/abnor mal. RBC (test code = 789-8) 4.40 See_Comment L [Au tomated message] The system [employer] generated this result transmitted ref erence range: 4.63 - 6 .08 M/L. The refe rence range was not u sed to interpret this result as normal/abnor mal. MCHC (test code = 786-4) 29.8 See_Comment L [A utomated message] The system [employer] generated this result transmitted ref erence range: [...] = 104 See_Comment L [Aut omated message] 217-3) The system [employer] generated this result transmitted ref erence range: 150 - 45 0 K/CU MM. The referen ce range was not u sed to interpret this result as normal/abnor mal. MPV (test code = Unable to r eport due 02311-9) to abnormal Pollo telet population distribution. nRBC (test code = 413) 0 See_Comment [Aut omated message] The system [employer] generated this result transmitted ref erence range: [...] See_Comment [Aut omated message] 670) The system [employer] generated this result transmitted ref erence range: 1.78 - 5 .38 K/L. The refe rence range was not u sed to interpret this result as normal/abnor mal. # Lymphs (test code = 1.92 See_Comment [Auto mated message] 414) The system [employer] generated this result transmitted ref erence range: 1.32 - 3 .57 K/L. The refe rence range was not u sed to interpret this result as normal/abnor mal. # Monos (test code = 0.60 See_Comment [Autom ated message] 415) The system [employer] generated this result transmitted ref erence range: 0.30 - 0 .82 K/L. The refe rence range was not u sed to interpret this result as normal/abnor mal. # Eos (test code = 416) 0.11 See_Comment [Au tomated message] The system [employer] generated this result transmitted ref erence range: 0.04 - 0 .54 K/L. The refe rence range was not u sed to interpret this result as normal/abnor mal. # Baso (test code = 417) 0.05 See_Comment [A utomated message] The system [employer] generated this result transmitted ref erence range: 0.01 - 0 .08 K/L. The refe rence range was not u sed to interpret this result as normal/abnor mal. Immature 0 % 0-1 Granulocytes-Relative (test code = 2801) Lab Interpretation (test Abnormal code = 84682-9) [facility] W/PLT COUNT & AUTO [id number] 11:25:26 Test Item Value Reference Range Interpretation [...] PERCENT (BEAKER) (test code = 2801) TROPONIN [id number] 19:45:34 Test Item Value Reference Interpretation Comments Range TROPONIN I (test 0.004 ng/mL See_Comment [Automated code = 5390848376) message] The system which generated this result [...] biotin. Lab Interpretation Normal (test code = 77629-2) [facility] WITH [id number] 19:42:16 Test Item Value Reference Range Interpretation Comments WBC (test code = See_Comment [Automated 4190-2) message] The sy stem which generated this result transmitted reference range : 4.20 - 10.70 10*3/?L. The reference range was not used to interpret this result as normal/abnormal . RBC (test code = See_Comment [Automated 003-8) message] The sy stem which generated this [...] (test code = 55.0 fL 38.5-51.6 H 84573-2) RDW-CV (test code = 21.7 % 12.1-15.4 H 788-0) PLT (test code = See_Comment L [Automated 777-3) message] The sy stem which generated this result transmitted reference range : 150 - 328 10*3/ ?L. The reference r mela was not used to interpret this result as normal/abnormal . MPV (test code = Not Measure d 69625-5) IPF % (test code = 3.2 % 1.2-10.7 Platelet count 8320967349) measured by fluorescence method. NRBC/100 WBC (test See_Comment [Automat ed code = 7169692386) message] The system which generated this result transmitted reference range : 0.0 - 10.0 /100 WBCs. The refer ence range was not u sed to interpret th is result as normal/abnormal . NRBC x10^3 (test code <0.01 See_Comment [Auto mated = 4361910253) message] The s ystem which generated this result transmitted reference range : 10*3/?L. The reference range was not used to interpret this result as normal/abnormal . GRAN MAT (NEUT) % 42.9 % (test code = 770-8) IMM GRAN % (test code 0.60 % = 5319289511) LYMPH % (test code = 38.0 % 736-9) MONO % (test code = 14.2 % 5905-5) EOS % (test code = 3.3 % 713-8) BASO % (test code = 1.0 % 706-2) GRAN MAT x10^3(ANC) 2.24 10*3/uL 1.99-6.95 (test code = 3889515155) IMM GRAN x10^3 (test 0.03 10*3/uL 0.00-0.06 code = 3721805248) LYMPH x10^3 (test code 1.98 10*3/uL 1.09-3.23 = 731-0) MONO x10^3 (test code 0.74 10*3/uL 0.36-1.02 = 742-7) EOS x10^3 (test code = 0.17 10*3/uL 0.06-0.53 711-2) BASO x10^3 (test code 0.05 10*3/uL 0.01-0.09 = 704-7) Lab Interpretation Abnormal (test code = 70382-2) [facility] 19:34:12 Test Item Value Reference Range Interpretation Comments NA (test code = 135 mmol/L 135-145 4595221697) K (test code = 3.8 mmol/L 3.5-5.0 9624379602) CL (test code = 104 mmol/L 98-108 6227992793) CO2 TOTAL (test code = 23 mmol/L 23-31 9616228964) AGAP (test code = 2-16 9644048357) BUN (test code = 9 mg/dL 7-23 1454046988) GLUCOSE (test code = 195 mg/dL 70-110 H 3617770701) CREATININE (test code = 0.65 mg/dL 0.60-1.25 0977227382) TOTAL BILI (test code = 1.3 mg/dL 0.1-1.1 H 0777400485) CALCIUM (test code = 8.2 mg/dL 8.6-10.6 L 8942735735) T PROTEIN (test code = 6.6 g/dL 6.3-8.2 8409469694) ALBUMIN (test code = 2.9 g/dL 3.5-5.0 L 2923426946) ALK PHOS (test code = 143 U/L 34-122 H 3760218928) ALTv (test code = 28 U/L 5-50 1742-6) AST(SGOT) (test code = 47 U/L 13-40 H 9118855457) eGFR (test code = mL/min/1.73m2 7352403917) MADALYN (test code = MADALYN) Association of [...] tests). Lab Interpretation Abnormal (test code = 69829-0) [facility], [id number] 19:32:52 Test Item Value Reference Range Interpretation Comments AMMONIA (test code = 9777514104) 48 umol/L 9-33 H Lab Interpretation (test code = Abnormal 65491-4) [facility] CenterPROTHROM[facility] / [id number] 19:01:25 Test Item Value Reference Range Interpretation Comments PROTIME PATIENT (test See_Comment H [Auto mated message] code = 5964-2) The system [employer] generated this result transmitted ref erence range: 12.0 - 1 4.7 Seconds. The reference range was not used to int erpret this result as normal/abnormal . INR (test code = 6301-6) Nor mal INR <1.1; Warfarin Therap eutic range 2.0 to 3. 0 or 2.5 to 3.5, dep ending upon the indica tions. Lab Interpretation (test Abnormal code = 27920-4) [facility] CenterANG, EMBOLIZATION, EXTENSIVE - ARTERIAL 2021-03-12 14:48:00REFERRING : ANIL SALVADOR For TACEReason for Exam:- >hcc, [facility] : 1955 Sex: MFINAL [...] blood loss: < 5 cc. Specimen: None. log stacker operator: Carolyn. Sourcing Engineer: Dilip. Fluoroscopy Time: 14.1 min. Dose (Ka,r): [...] accessed using a micropuncture set. A 5 Slovak sheath was placed. Diagnostic mesenteric angiogram was performedto access vessel patency and exclude arterio-portal shunting. A 5 Slovak Anaya catheter which was used to select the celiac trunk for a DSA run. A 3 Slovak microcatheter was advanced coaxially through the Anaya [...] hepatic artery injections: Minimal ill-defined hypervascularity is seenin the superior right hepatic lobe corresponding to the residual nodular enhancement in segment 8 on recent MRI. Post embolization, there is no further enhancement of the lesion. The lateral segment ofthe left hepatic lobe was noted to be [...] hemostasis using closure device. Signed: Anthony Jaime Verified Date/Time: 03/12/2021 14:48:55 Reading Location: [facility] P048 Angio Body Reading Room HEPATIC FUNCTION PANEL [...] (test code = 19 U/L 6-55 347) Pyridine Operator ID - EMERSONSpecimen slightly ictericBASIC METABOLIC [id number] 07:40:33 Test Item Value Reference Range Interpretation [...] S NOT APPLICABLE FOR DIALYSIS PATIEN TS. Pyridine Operator ID - EMERSONSpecimen slightly ictericPROTHROMBIN TIME/[id number] 07:22:36 Test Item Value Reference Range Interpretation Comments PROTIME (BEAKER) 16.9 seconds 11.9-14.2 H (test code = 759) INR (BEAKER) (test 1.40 See_Comment [Automat ed message] code = 370) The system [employer] generated this result transmitted ref erence range: <=5.90. The reference range was not used to int erpret this result as normal/abnormal . RECOMMENDED COUMADIN/WARFARIN INR THERAPY RANGESSTANDARD DOSE: 2.0 - 3.0 Includes: PROPHYLAXIS for venous thrombosis, systemic embolization; TREATMENT for venous thrombosis and/or pulmonary embolus.HIGH RISK: Target INR is 2.5-3.5 for patients with mechanical heart valves.CBC W/PLT COUNT & AUTO [id number] 07:09:25 Test Item Value Reference Range Interpretation [...] (BEAKER) (test code = 2801) BASIC METABOLIC [id number] 10:56:30 Test Item Value Reference Range Interpretation [...] S NOT APPLICABLE FOR DIALYSIS PATIEN TS. Pyridine Operator ID - AMADOR FSpecimen slightly ictericHEPATIC FUNCTION [...] (test code = 28 U/L 6-55 347) Pyridine Operator ID - AMADOR FSpecimen slightly [id number] 10:28:14 Test Item Value Reference Range Interpretation Comments PARTIAL THROMBOPLASTIN TIME 34.9 seconds 22.5-36.0 (BEAKER) (test code = 760) PROTHROMBIN TIME/[id number] 10:27:34 Test Item Value Reference Range Interpretation Comments PROTIME (BEAKER) 17.4 seconds 11.9-14.2 H (test code = 759) INR (BEAKER) (test 1.45 See_Comment [Automat ed message] code = 370) The system [employer] generated this result transmitted ref erence range: <=5.90. The reference range was not used to int erpret this result as normal/abnormal . RECOMMENDED COUMADIN/WARFARIN INR THERAPY RANGESSTANDARD DOSE: 2.0 - 3.0 Includes: PROPHYLAXIS for venous thrombosis, systemic embolization; TREATMENT for venous thrombosis and/or pulmonary embolus.HIGH RISK: Target INR is 2.5-3.5 for patients with mechanical heart valves.CBC W/PLT COUNT & AUTO [id number] 10:14:45 Test Item Value Reference Range Interpretation [...] (BEAKER) (test code = 2801) MR, ABDOMEN, [id number] 12:00:00REFERRING : ANIL MODESTO Include Abdominal VesselsCHI SAN FRANC[facility]Name: [facility] : 1955 Sex: [...] V (series 3, image 22) is likely new accounts banking representative of a cyst, unchanged.*An 11 mm [...] thrombus. Patent main portal vein. Signed: Stefano [place] Verified Date/Time: 01/25/2021 12:00:12 Reading Location: [address] Transitional Reading Room Hepatitis C RNA Quantitative 2021-01-22 16:10:00 Test Item Value Reference Range Interpretation Comments HCV PCR, Quantitative HCV RNA not detected HCV RNA not (test code = 17387-6) detected MADALYN (test code = MADALYN) This test uses a Real-Time Polymerase Chain Reaction (RT-PCR) methodology and was performed using KHOA Ampliprep/KHOA TaqMan HCV test kit version 2.0 ([employer]). Reportable range for this assay is 15 - 100,000,000 IU per mL (1.18 - 8.00 Log IU/mL). Lab Interpretation Normal (test code = 46314-9) [facility] CenterHEPAT[facility]IS C PCR, [id number] 16:10:00 Test Item Value Reference Range Interpretation Comments HCV RESULT COMPONENT HCV RNA not detected HCV RNA not detected (BEAKER) (test code = 2699) This test uses a Real-Time Polymerase Chain Reaction (RT-PCR) methodology and was performed using KHOA Ampliprep/KHOA TaqMan HCV test kit version 2.0 ([employer]).Reportable range for this assay is 15 - 100,000,000 IU per mL (1.18 - 8.00 Log IU/mL).CT, CHEST, WITHOUT [id number] 15:56:00 REFERRING MD: ANIL SALVADOR Mets work up [facility] : 1955 Sex: [...] MDReport Verified Date/Time: 01/22/2021 15:56:37 Reading Location: [facility] Diagnostic Imaging Reading Room - [place] [id number] ALPHA FETOPROTEIN (AFP), TUMOR [id number] 11:33:00 Test Item Value Reference Range Interpretation Comments ALPHA-FETOPROTEIN (BEAKER) (test 2.1 ng/mL <10.0 code = 1094) Pyridine Operator ID Andrea LYONS MBASIC METABOLIC [id number] 11:23:00 Test Item Value Reference Range Interpretation [...] S NOT APPLICABLE FOR DIALYSIS PATIEN TS. Pyridine Operator ID Andrea LYONS MHEPATIC FUNCTION [id number] 11:23:00 Test Item Value Reference Range Interpretation [...] (test code = 23 U/L 6-55 347) Pyridine Operator LEOPOLDO LYONS MCBC W/PLT COUNT & AUTO [id number] 10:58:00 Test Item Value Reference Range Interpretation [...] PERCENT (BEAKER) (test code = 2801) PROTHROMBIN TIME/[id number] 10:46:00 Test Item Value Reference Range Interpretation Comments PROTIME (MADISON) 16.4 seconds 11.9-14.2 H (test code = 759) INR (BEAKER) (test 1.35 See_Comment [Automat ed message] code = 370) The system [employer] generated this result transmitted ref erence range: <=5.90. The reference range was not used to int erpret this result as normal/abnormal . RECOMMENDED COUMADIN/WARFARIN INR THERAPY RANGESSTANDARD DOSE: 2.0 - 3.0 Includes: PROPHYLAXIS for venous thrombosis, systemic embolization; TREATMENT for venous thrombosis and/or pulmonary embolus.HIGH RISK: Target INR is 2.5-3.5 for patients with mechanical heart valves.ANG, EMBOLIZATION, EXTENSIVE - [id number] 08:41:00REFERRING MD: ANIL SALVADOR For TACEReason for Exam:->HCC, CIRRHOSIS [facility] : 1955 [...] blood loss: < 5 cc. Specimen: None. log stacker operator: Xiang Colindres MD.. Sourcing Engineer: None. Fluoroscopy Time: 14.2 m in.Reference Air Kerma (Ka, r): 1613 mGy. The skin was anesthetized with lidocaine. The right commonfemoral artery was accessed using a 21-gauge needle and a 0.018 inch microwire. A 4 Slovak catheter was placed over the wire and a 0.035 inch wire was placed through the catheter into the abdominal aorta. A 5 Slovak sheath was placed over the wire. A 5 Slovak SOS-II catheter was used to select the [...] artery with preservation of the adjacent liver parenchymalvascular supply. Post embolization angiogram demonstrates stasis within [...] MDReport Verified Date/Time: 11/27/2020 08:41:43 BASIC METABOLIC [id number] 08:59:00 Test Item Value Reference Range Interpretation [...] S NOT APPLICABLE FOR DIALYSIS PATIEN TS. Pyridine Operator ID - PIAYA LSpecimen slightly ictericHEPATIC FUNCTION [id number] 08:59:00 Test Item Value Reference Range Interpretation [...] (test code = 24 U/L 6-55 347) Pyridine Operator ID - KRISHNA Isaac slightly ictericPROTHROMBIN TIME/[id number] 08:49:00 Test Item Value Reference Range Interpretation Comments PROTIME (BEAKER) 16.7 seconds 11.9-14.2 H (test code = 759) INR (BEAKER) (test 1.37 See_Comment [Automat ed message] code = 370) The system [employer] generated this result transmitted ref erence range: <=5.90. The reference range was not used to int erpret this result as normal/abnormal . RECOMMENDED COUMADIN/WARFARIN INR THERAPY RANGESSTANDARD DOSE: 2.0 - 3.0 Includes: PROPHYLAXIS for venous thrombosis, systemic embolization; TREATMENT for venous thrombosis and/or pulmonary embolus.HIGH RISK: Target INR is 2.5-3.5 for patients with mechanical heart valves.CBC W/PLT COUNT & AUTO [id number] 08:49:00 Test Item Value Reference Range Interpretation [...] 0-1 PERCENT (BEAKER) (test code = 2801) [id number] 08:49:00 Test Item Value Reference Range Interpretation Comments PARTIAL THROMBOPLASTIN TIME 34.6 seconds 22.5-36.0 (BEAKER) (test code = 760) HEPATITIS C PCR, [id number] 19:54:00 Test Item Value Reference Range Interpretation Comments HCV RESULT COMPONENT HCV RNA not detected HCV RNA not detected (BEAKER) (test code = 2699) This test uses a Real-Time Polymerase Chain Reaction (RT-PCR) methodology and was performed using KHOA Ampliprep/KHOA TaqMan HCV test kit version 2.0 ([employer]).Reportable range for this assay is 15 - 100,000,000 IU per mL (1.18 - 8.00 Log IU/mL).BASIC METABOLIC [id number] 12:10:00 Test Item Value Reference Range Interpretation [...] S NOT APPLICABLE FOR DIALYSIS PATIEN TS. Pyridine Operator ID - FSEHEPATIC FUNCTION [id number] 12:10:00 Test Item Value Reference Range Interpretation [...] (test code = 26 U/L 6-55 347) Pyridine Operator ID - FSECBC W/PLT COUNT & AUTO [id number] 12:01:00 Test Item Value Reference Range Interpretation [...] PERCENT (BEAKER) (test code = 2801) PROTHROMBIN TIME/[id number] 11:53:00 Test Item Value Reference Range Interpretation Comments PROTIME (BEAKER) 16.3 seconds 11.9-14.2 H (test code = 759) INR (BEAKER) (test 1.35 See_Comment [Automat ed message] code = 370) The system [employer] generated this result transmitted ref erence range: <=5.90. The reference range was not used to int erpret this result as normal/abnormal . RECOMMENDED COUMADIN/WARFARIN INR THERAPY RANGESSTANDARD DOSE: 2.0 - 3.0 Includes: PROPHYLAXIS for venous thrombosis, systemic embolization; TREATMENT for venous thrombosis and/or pulmonary embolus.HIGH RISK: Target INR is 2.5-3.5 for patients with mechanical heart valves.BONE AND/OR JOINT IMAGING, WHOLE BODY 2020-10-08 17:40:00REFERRING : ANIL SALVADOR [facility] : 1955 Sex: MFINAL REPORT PROCEDURE: BONE SCAN, WHOLE BODY CPT CODE: 71729 INDICATION: Hepatocellularcarcinoma PROTOCOL: 21.0 mCi of Tc-99m [...] Verified Date/Time: 10/08/2020 17:40:47 Reading Location: [address] [place] [address], CHEST, WITHOUT [id number] 12:54:00REFERRING : ANIL SALVADOR [facility] : 1955 Sex: [...] subsegmental atelectasis.3. Hiatal hernia4. Cirrhosis.Signed: Brenda [facility] Verified Date/Time: 10/08/2020 12:54:21 Reading Location: [facility] B1 C013Y CT Body Reading Room ALPHA FETOPROTEIN (AFP), TUMOR [id number] 12:52:00 Test Item Value Reference Range Interpretation Comments ALPHA-FETOPROTEIN (BEAKER) (test 2.5 ng/mL <10.0 code = 1094) Pyridine Operator ID - [facility] METABOLIC [id number] 11:26:00 Test Item Value Reference Range Interpretation [...] S NOT APPLICABLE FOR DIALYSIS PATIEN TS. Pyridine Operator ID - PIAYA LHEPATIC FUNCTION [id number] 11:26:00 Test Item Value Reference Range Interpretation [...] (test code = 29 U/L 6-55 347) Pyridine Operator ID - PIAYA LCBC W/PLT COUNT & AUTO [id number] 11:14:00 Test Item Value Reference Range Interpretation [...] PERCENT (BEAKER) (test code = 2801) PROTHROMBIN TIME/[id number] 11:12:00 Test Item Value Reference Range Interpretation Comments PROTIME (BEAKER) 16.7 seconds 11.9-14.2 H (test code = 759) INR (BEAKER) (test 1.39 See_Comment [Automat ed message] code = 370) The system [employer] generated this result transmitted ref erence range: [...] for patients wiht mechanical heart valves.MR, ABDOMEN, [id number] 16:24:00 REFERRING MD: ANIL SALVADOR Include Abdominal VesselsUnlisted Reason for Exam - Click Yes and EnterReason Below->YesUnlisted Reason for Exam->awaiting organ transplant, cirrhosis, screening forcancer [facility] : 1955 Sex: [...] sized right pleural effusion Signed: Tawanda Alvarez [facility] Verified Date/Time: 09/02/2020 16:24:23 ALPHA FETOPROTEIN (AFP), TUMOR [id number] 16:57:00 Test Item Value Reference Range Interpretation Comments ALPHA-FETOPROTEIN (BEAKER) (test code < ng/mL <10.0 = 1094) Pyridine Operator ID - BSBASI METABOLIC [id number] 14:50:00 Test Item Value Reference Range Interpretation [...] S NOT APPLICABLE FOR DIALYSIS PATIEN TS. Pyridine Operator ID - EDASISpecimen slightly ictericHEPATIC FUNCTION [id number] 14:50:00 Test Item Value Reference Range Interpretation [...] (test code = 26 U/L 6-55 347) Pyridine Operator ID - EDASISpecimen slightly ictericCBC W/PLT COUNT & AUTO [id number] 14:45:00 Test Item Value Reference Range Interpretation [...] PERCENT (BEAKER) (test code = 2801) PROTHROMBIN TIME/[id number] 14:40:00 Test Item Value Reference Range Interpretation Comments PROTIME (BEAKER) 17.6 seconds 11.9-14.2 H (test code = 759) INR (BEAKER) (test 1.49 See_Comment [Automat ed message] code = 370) The system [employer] generated this result transmitted ref erence range: [...] for patients wiht mechanical heart valves.Chest 1 [id number] 14:03:55 Small right pleural effusion with right [...] effusion with right basilar pneumonia and/oratelectasis.RL: [address] [facility] [id number] 13:32:55 Test Item Value Reference Range Interpretation Comments TROPONIN I (test <0.012 See_Comment [Automated code = 8649088111) message] The system which generated this result [...] ? Lab Interpretation Normal (test code = 10207-8) [facility] [id number] 13:29:55 Test Item Value Reference Range Interpretation Comments NT-proBNP (test code 119 pg/mL See_Comment [Autom ated = 3648964960) message] The system which generated this result transmitted reference range : <=125. The reference range was not used to interpret this result as normal/abnormal . MADALYN (test code = MADALYN) Biotin has been reported to cause a negative bias, interpret results relative to patient's use of biotin. Lab Interpretation Normal (test code = 25062-7) [facility] CenterCOVID[facility] (ID NOW RAPID TESTING)2020-08-19 13:23:14 Test Item Value Reference Range Interpretation Comments SARS-CoV-2 Rapid ID NOW Not Detected Not Detected (test code = 84857-2) MADALYN (test code = MADALYN) ID NOW COVID-19 Assay is an isothermal nucleic acid amplification test intended for the qualitative detection of nucleic acid from SARS-CoV-2 viral RNA in nasopharyngeal (MAGAZINE FILLER) specimens. It is used under Emergency Use [...] indicated. Lab Interpretation Normal (test code = 25305-0) [facility] Metabolic Panel (NA, K, CL, CO2, GLUCOSE, BUN, CREATININE, CA)2020-08-19 13:21:13 Test Item Value Reference Range Interpretation Comments NA (test code = 135 mmol/L 135-145 0689950688) K (test code = 4.1 mmol/L 3.5-5.0 9762229289) CL (test code = 106 mmol/L 98-108 2070640996) CO2 TOTAL (test code = 24 mmol/L 23-31 1051022300) AGAP (test code = 2-16 5064967103) BUN (test code = 7 mg/dL 7-23 4300280144) GLUCOSE (test code = 216 mg/dL 70-110 H 5056620033) CREATININE (test code = 0.59 mg/dL 0.60-1.25 L 8285980507) CALCIUM (test code = 8.2 mg/dL 8.6-10.6 L 0699371681) eGFR Calculation mL/min/1.73m2 (Non-) (test code = 9557120910) eGFR Calculation mL/min/1.73m2 () (test code = 2267148090) MADALYN (test code = MADLAYN) Association of Glomerular Filtration Rate (GFR) and [...] tests). Lab Interpretation Abnormal (test code = 28782-2) [facility] Center[facility] Function [facility] (ALB, T.PRO, BILI T, BU/BC, ALT, AST, ALK PHOS)2020-08-19 13:21:12 Test Item Value Reference Range Interpretation Comments TOTAL BILI (test code = 5617006174) 1.9 mg/dL 0.1-1.1 H BILI UNCON (test code = 4115624743) 1.7 mg/dL 0.1-1.1 H BILI CONJ (test code = 0293341010) 0.0 mg/dL 0.0-0.3 T PROTEIN (test code = 0370672385) 6.3 g/dL 6.3-8.2 ALBUMIN (test code = 9365493713) 3.0 g/dL 3.5-5.0 L ALK PHOS (test code = 8589573220) 162 U/L 34-122 H ALTv (test code = 1742-6) 25 U/L 5-50 AST(SGOT) (test code = 0275875743) 41 U/L 13-40 H Lab Interpretation (test code = Abnormal 05352-8) [facility] Payji0834-47-58 13:21:12 Test Item Value Reference Range Interpretation Comments LIPASE (test code = 8433468029) 145 U/L 0-220 Lab Interpretation (test code = Normal 63497-5) [facility] with Yrmshmvbhnsq1383-55-53 13:17:56 Test Item Value Reference Range Interpretation [...] RDW-SD (test code = 48.3 fL 38.5-51.6 47444-6) RDW-CV (test code = 21.4 % 12.1-15.4 H 788-0) PLT (test code = See_Comment L [Automated 777-3) message] The sy stem which generated this result transmitted reference range : 150 - 328 10*3/ ?L. The reference r mela was not used to interpret this result as normal/abnormal . MPV (test code = Not Measure d 28969-9) IPF % (test code = 2.3 % 1.2-10.7 Platelet count 1818476746) measured by fluorescence method. NRBC/100 WBC (test See_Comment [Automat ed code = 2734029791) message] The system which generated this result transmitted reference range : 0.0 - 10.0 /100 WBCs. The refer ence range was not u sed to interpret th is result as normal/abnormal . NRBC x10^3 (test code <0.01 See_Comment [Auto mated = 0175550615) message] The s ystem which generated this result transmitted reference range : 10*3/?L. The reference range was not used to interpret this result as normal/abnormal . GRAN MAT (NEUT) % 56.4 % (test code = 770-8) IMM GRAN % (test code 0.20 % = 5409949239) LYMPH % (test code = 27.6 % 736-9) MONO % (test code = 10.7 % 5905-5) EOS % (test code = 3.7 % 713-8) BASO % (test code = 1.4 % 706-2) GRAN MAT x10^3(ANC) 2.47 10*3/uL 1.99-6.95 (test code = 9749115824) IMM GRAN x10^3 (test <0.03 0.00-0.06 code = 7614081731) LYMPH x10^3 (test code 1.21 10*3/uL 1.09-3.23 = 731-0) MONO x10^3 (test code 0.47 10*3/uL 0.36-1.02 = 742-7) EOS x10^3 (test code = 0.16 10*3/uL 0.06-0.53 711-2) BASO x10^3 (test code 0.06 10*3/uL 0.01-0.09 = 704-7) Lab Interpretation Abnormal (test code = 95223-6) [facility] CenterPROTHROMBIN TIME / [id number] 01:49:00 Test Item Value Reference Range Interpretation [...] tions. Lab Interpretation (test Abnormal code = 45626-5) [facility]MAGN[facility]IUM2021-[facility]-29 01:27:00 Test Item Value Reference Range Interpretation Comments MAGNESIUM (test code = 4158160951) 1.6 mg/dL 1.7-2.4 L Lab Interpretation (test code = Abnormal 47242-5) [facility] CenterAMMONIA, [id number] 01:26:00 Test Item Value Reference Range Interpretation Comments AMMONIA (test code = 3093488799) 37 umol/L 9-33 H Lab Interpretation (test code = Abnormal 33453-9) [facility] CenterUrinalysis2021-01-29 00:30:00 Test Item Value Reference Range Interpretation Comments APPEARANCE (test code = Clear Clear 2196501758) COLOR (test code = Addison Yellow A 8017172727) PH (test code = 4.8-8.0 6375287585) SP GRAVITY (test code = 1.003-1.030 0387634447) GLU U QUAL (test code = Normal Normal 2388815676) BLOOD (test code = Negative Negative INTERFERE NCE FROM 7137478047) ASCORBIC ACID M AY CAUSE FALSE NEG ATIVE RESULT KETONES (test code = Negative Negative 7187071606) PROTEIN (test code = Negative Negative 2887-8) UROBILIN (test code = 4.0 mg/dL Normal A 8019810983) BILIRUBIN (test code = Negative Negative 1913078658) NITRITE (test code = Negative Negative 3674331221) LEUK KIKI (test code = Negative Negative 4209282638) RBC/HPF (test code = See_Comment [Autom ated message] 8158399632) The system [employer] generated this result transmitted ref erence range: 0 - 3 HP F. The reference range was not used to int erpret this result as normal/abnormal . WBC/HPF (test code = See_Comment [Autom ated message] 5165646500) The system [employer] generated this result transmitted ref erence range: 0 - 5 HP F. The reference range was not used to int erpret this result as normal/abnormal . BACTERIA (test code = Negative Negative 2356920643) MUCOUS (test code = Slight Negative LPF A 5963156407) SQ EPITH (test code = HPF 6394057788) CA OXALATE (test code = See_Comment [Au tomated message] 6627550559) The system [employer] generated this result transmitted ref erence range: <=1 HPF. The reference range was not used to int erpret this result as normal/abnormal . TRANS EPI (test code = <1 See_Comment [Aut omated message] 4868333040) The system [employer] generated this result transmitted ref erence range: <=1 HPF. The reference range was not used to int erpret this result as normal/abnormal . Lab Interpretation Abnormal (test code = 70845-5) [facility] 1 [id number] 00:22:38Elevation of the right hemidiaphragm of moderate [...] effusion. Nopneumothorax.No acute osseous abnormality. IMPRESSIONElevation of the right hemidiaphragm of moderate patchy opacities in theright lung base which may be due to atelectasis or pneumonia.RL: 4131 End of report [facility] [id number] 00:18:00 Test Item Value Reference Range Interpretation Comments TROPONIN I (test <0.012 See_Comment [Automated code = 1850406346) message] The system which generated this result [...] ? Lab Interpretation Normal (test code = 00835-7) [facility] CenterN-TERMINAL TLS-[id number] 00:15:00 Test Item Value Reference Range Interpretation Comments NT-proBNP (test code 175 pg/mL See_Comment H [Autom ated = 1324175054) message] The system which generated this result transmitted reference range : <=125. The reference range was not used to interpret this result as normal/abnormal . MADALYN (test code = MADALYN) Biotin has been reported to cause a negative bias, interpret results relative to patient's use of biotin. Lab Interpretation Abnormal (test code = 88995-9) [facility] CenterCOVID-19 (ID NOW RAPID TESTING)2020-06-26 00:08:00 Test Item Value Reference Range Interpretation Comments SARS-CoV-2 Rapid ID NOW Not Detected Not Detected (test code = 47607-9) MADALYN (test code = MADALYN) ID NOW COVID-19 Assay is an isothermal nucleic acid amplification test intended for the qualitative detection of nucleic acid from SARS-CoV-2 viral RNA in nasopharyngeal (MAGAZINE FILLER) specimens. It is used under Emergency Use [...] indicated. Lab Interpretation Normal (test code = 17617-1) [facility] Metabolic Panel (NA, K, CL, CO2, GLUCOSE, BUN, CREATININE, CA)2020-06-26 00:06:00 Test Item Value Reference Range Interpretation Comments NA (test code = 137 mmol/L 135-145 6583453163) K (test code = 3.4 mmol/L 3.5-5 L 7469918926) CL (test code = 104 mmol/L 98-108 5419201528) CO2 TOTAL (test code = 26 mmol/L 23-31 5428051943) AGAP (test code = 2-16 5969478040) BUN (test code = 6 mg/dL 7-23 L 0980479337) GLUCOSE (test code = 118 mg/dL 70-110 H 9014435303) CREATININE (test code = 0.60 mg/dL 0.6-1.25 8715035847) CALCIUM (test code = 7.9 mg/dL 8.6-10.6 L 1870655143) eGFR Calculation mL/min/1.73m2 (Non-) (test code = 0198795801) eGFR Calculation mL/min/1.73m2 () (test code = 4883441846) MADALYN (test code = MADALYN) Association of [...] tests). Lab Interpretation Abnormal (test code = 06861-8) [facility] CenterHep[facility] Function Panel (ALB, T.PRO, BILI T, BU/BC, ALT, AST, ALK PHOS)2020-06-26 00:06:00 Test Item Value Reference Range Interpretation Comments TOTAL BILI (test code = 3789708336) 2.2 mg/dL 0.1-1.1 H BILI UNCON (test code = 6659005507) 1.8 mg/dL 0.1-1.1 H BILI CONJ (test code = 7508094097) 0.0 mg/dL 0-0.3 T PROTEIN (test code = 0905170444) 6.8 g/dL 6.3-8.2 ALBUMIN (test code = 9639863849) 3.1 g/dL 3.5-5 L ALK PHOS (test code = 4950152029) 162 U/L 34-122 H ALTv (test code = 1742-6) 22 U/L 5-50 AST(SGOT) (test code = 4296666577) 42 U/L 13-40 H Lab Interpretation (test code = Abnormal 13165-3) [facility] CenterLipase [id number] 00:06:00 Test Item Value Reference Range Interpretation Comments LIPASE (test code = 5422801308) 156 U/L 0-220 Lab Interpretation (test code = Normal 62323-4) [facility] CenterCBC with Sschxnxivvns7829-02-79 00:00:00 Test Item Value Reference Range Interpretation [...] RDW-SD (test code = 49.4 fL 38.5-51.6 74936-7) RDW-CV (test code = 21.6 % 12.1-15.4 H 788-0) PLT (test code = See_Comment L [Automated 777-3) message] The sy stem which generated this result transmitted reference range : 150 - 328 10*3/ ?L. The reference r mela was not used to interpret this result as normal/abnormal . MPV (test code = Not Measure d 60908-0) IPF % (test code = 1.9 % 1.2-10.7 Platelet count 4021074974) measured by fluorescence method. NRBC/100 WBC (test See_Comment [Automat ed code = 5172929204) message] The system which generated this result transmitted reference range : 0.0 - 10.0 /100 WBCs. The refer ence range was not u sed to interpret th is result as normal/abnormal . NRBC x10^3 (test code <0.01 See_Comment [Auto mated = 3986440953) message] The s ystem which generated this result transmitted reference range : 10*3/?L. The reference range was not used to interpret this result as normal/abnormal . GRAN MAT (NEUT) % 44.8 % (test code = 770-8) IMM GRAN % (test code 0.20 % = 2183635788) LYMPH % (test code = 37.2 % 736-9) MONO % (test code = 13.6 % 5905-5) EOS % (test code = 2.7 % 713-8) BASO % (test code = 1.5 % 706-2) GRAN MAT x10^3(ANC) 2.47 10*3/uL 1.99-6.95 (test code = 4578729470) IMM GRAN x10^3 (test <0.03 0-0.06 code = 2825567382) LYMPH x10^3 (test code 2.05 10*3/uL 1.09-3.23 = 731-0) MONO x10^3 (test code 0.75 10*3/uL 0.36-1.02 = 742-7) EOS x10^3 (test code = 0.15 10*3/uL 0.06-0.53 711-2) BASO x10^3 (test code 0.08 10*3/uL 0.01-0.09 = 704-7) Lab Interpretation Abnormal (test code = 65384-8) [facility] CenterMISCELLANEOUS LAB [id number] 12:02:00 Test Item Value Reference Range Interpretation Comments SCAN RESULT (test code = 1445395) SARS-COV2/RT-PCR ([facility])2020-03-13 20:20:00 Test Item Value Reference Range Interpretation Comments SARS-COV2/RT-PCR (test Negative Not Detected, Negative, code = 8973196) See external report for linked test SARS-COV-2 PERFORMING LAB [facility] KAT (test code = 3966866) Negative result for this test determines that [...] of the Act.Fact Sheet for Healthcare Prov iders:https://www.bunkersofa/sites/default/files/product/documents/Fact_Sheet_HC _Ygdbatykp_Riih_PVLB-JkB-9.pdfFact Sheet for Healthcare Patients:https://www.bunk[employer]ofa/sites/default/files/product/docume nts/Ddon_Dytot_Tcxtyxns_Wjpr_XYCC-YzY-0.pdfPerforming Laboratory:[facility], [place] [address]AK, ABDOMEN, WITH 2020-03-13 14:43:00REFERRING : ANIL SALVADOR Include Abdominal VesselsUnlisted Reason for Exam - Click Yes and EnterReason Below- >YesUnlisted Reason for Exam->listed for liver transplant, screening [facility] malignancyARR[facility] : 1955 [...] in the liver. Spleen is enlarged measuring wohrrabkvtkoa66.8 x 4.9 x 11.4 cm. The splenic, [...] mass.3. Trace ascites. Signed: Brenda De Dios [facility] Verified Date/Time: 03/13/2020 14:43:24 ALPHA FETOPROTEIN (AFP), TUMOR MARKER 2020-03-13 13:25:00 Test Item Value Reference Range Interpretation Comments ALPHA-FETOPROTEIN (BEAKER) (test code < ng/mL <10.0 = 1094) Pyridine Operator ID - AAHAMIDCOMPREHENSIVE METABOLIC [id number] 12:54:00 Test Item Value Reference Range Interpretation [...] S NOT APPLICABLE FOR DIALYSIS PATIEN TS. Pyridine Operator ID - AAHAMIDRAD, BONE DENSITY [id number] 12:46:00REFERRING MD: ANIL SALVADOR Reason for Exam:->on liver transplant [facility] list [facility] : 1955 Sex: MFINAL REPORT Bone density study, 03/13/2020 Clinical History: Screening Bone mineral density measurementLumbar spine1.110 gm/ti8Epazkho neck0.918 gm/cm2 Standard deviation from young adult [...] or more fragility fractures Signed: Antonio Rivera MDReport Verified Date/Time: 03/13/2020 12:46:53 Reading Location: [address] Reading Room BILIRUBIN, [id number] 12:38:00 Test Item Value Reference Range Interpretation Comments BILIRUBIN DIRECT (BEAKER) (test 1.0 mg/dL 0.1-0.5 H code = 706) Pyridine Operator ID - AAHAMIDPROTHROMBIN TIME/[id number] 12:23:00 Test Item Value Reference Range Interpretation [...] mechanical heart valves.CBC W/PLT COUNT & AUTO [id number] 12:16:00 Test Item Value Reference Range Interpretation [...] PERCENT (BEAKER) (test code = 2801) BLOOD [id number] 20:00:00 Test Item Value Reference Range Interpretation Comments CULTURE (BEAKER) (test No growth in 5 days code = 1095) BLOOD [id number] 20:00:00 Test Item Value Reference Range Interpretation Comments CULTURE (BEAKER) (test No growth in 5 days code = 1095) POCT-GLUCOSE [id number] 07:47:00 Test Item Value Reference Range Interpretation Comments POC-GLUCOSE METER 121 mg/dL 70-110 H : TESTED A T [facility] 6720 (BEAKER) (test code = [facility], 1538) 23130: Pyridine Operator/Techni zaire ID = [id number] for RADHA GARVEY HEPATIC FUNCTION [id number] 07:24:00 Test Item Value Reference Range Interpretation [...] (test code = 25 U/L 6-55 347) Pyridine Operator ID - PIAYA LSpecimen slightly ictericPOCT-GLUCOSE [id number] 22:18:00 Test Item Value Reference Range Interpretation Comments POC-GLUCOSE METER 143 mg/dL 70-110 H : TESTED A T [facility] 6720 (BEAKER) (test code = [facility], 1538) 61858: Pyridine Operator/Techni zaire ID = [id number] for CA RBAJAL, ANU POCT-GLUCOSE [id number] 17:24:00 Test Item Value Reference Range Interpretation Comments POC-GLUCOSE METER 214 mg/dL 70-110 H : TESTED A T [facility] 6720 (BEAKER) (test code = [facility], [facility]8) 72430: Pyridine Operator/Techni zaire ID = [id number] for WADE MCMULLEN POCT-GLUCOSE [id number] 13:32:00 Test Item Value Reference Range Interpretation Comments POC-GLUCOSE METER 127 mg/dL 70-110 H : TESTED A T [facility] 6720 (BEAKER) (test code = [facility], [facility]8) 33108: Pyridine Operator/Techni zaire ID = [id number] for WADE MCMULLEN POCT-GLUCOSE [id number] 12:08:00 Test Item Value Reference Range Interpretation Comments POC-GLUCOSE METER 124 mg/dL 70-110 H : TESTED A T [facility] 6720 (BEAKER) (test code = [facility], [facility]8) 44880: Pyridine Operator/Techni zaire ID = [id number] for CHARI RAZO POCT-GLUCOSE [id number] 08:16:00 Test Item Value Reference Range Interpretation Comments POC-GLUCOSE METER 117 mg/dL 70-110 H : TESTED A T [facility] 6720 (BEAKER) (test code = [facility], [facility]8) 98846: Pyridine Operator/Techni zaire ID = [id number] for WADE MCMULLEN BASIC METABOLIC [id number] 06:13:00 Test Item Value Reference Range Interpretation [...] S NOT APPLICABLE FOR DIALYSIS PATIEN TS. Pyridine Operator ID - KRISHNA Isaac slightly ictericHEPATIC FUNCTION [id number] 06:13:00 Test Item Value Reference Range Interpretation [...] (test code = 27 U/L 6-55 347) Pyridine Operator ID Andrea Isaac slightly ictericPROTHROMBIN TIME/[id number] 05:46:00 Test Item Value Reference Range Interpretation [...] mechanical heart valves.CBC W/PLT COUNT & AUTO [id number] 05:21:00 Test Item Value Reference Range Interpretation [...] PERCENT (BEAKER) (test code = 2801) POCT-GLUCOSE [id number] 22:38:00 Test Item Value Reference Range Interpretation Comments POC-GLUCOSE METER 181 mg/dL 70-110 H : TESTED A T [facility] 6720 (BEAKER) (test code = [facility], 1538) 72793: Pyridine Operator/Techni zaire ID = [id number] for RON BLANCO (CELLAVISION MANUAL DIFF)2019-12-28 15:15:00 [...] CONCENTRATION Decreased (CELLAVISION)(BEAKER) (test code = 3438) Pyridine Operator ID - Nima RaglandJesus comments: Slide comments:CBC W/PLT COUNT & AUTO [id number] 15:11:00 Test Item Value Reference Range Interpretation [...] PERCENT (BEAKER) (test code = 2801) POCT-GLUCOSE [id number] 10:15:00 Test Item Value Reference Range Interpretation Comments POC-GLUCOSE METER 178 mg/dL 70-110 H : TESTED A T [facility] 6720 (BEAKER) (test code = [facility], 1538) 13210: Pyridine Operator/Techni zaire ID = [id number] for DELPHINE JUAREZ POCT-GLUCOSE [id number] 09:08:00 Test Item Value Reference Range Interpretation Comments POC-GLUCOSE METER 167 mg/dL 70-110 H : TESTED A T [facility] 6720 (BEAKER) (test code = [facility], 153) 01353: Pyridine Operator/Techni zaire ID = [id number] for SAMIRA COWAN BASIC METABOLIC [id number] 07:06:00 Test Item Value Reference Range Interpretation [...] S NOT APPLICABLE FOR DIALYSIS PATIEN TS. Pyridine Operator ID - KRISHNA ZAVALETApecimen slightly ictericHEPATIC FUNCTION [id number] 07:06:00 Test Item Value Reference Range Interpretation [...] (test code = 20 U/L 6-55 347) Pyridine Operator ID - KRISHNA Mcintyreimen slightly ictericPOCT-GLUCOSE [id number] 22:05:00 Test Item Value Reference Range Interpretation Comments POC-GLUCOSE METER 216 mg/dL 70-110 H : TESTED A T [facility] 6720 (BEAKER) (test code = [facility] [employer] [facility], 1538) 28996: Pyridine Operator/Techni zaire ID = [id number] for DAVID TALBERT POCT-GLUCOSE [id number] 17:07:00 Test Item Value Reference Range Interpretation Comments POC-GLUCOSE METER 244 mg/dL 70-110 H : TESTED A T [facility] 6720 (BEAKER) (test code = [facility] [employer] [facility], 1538) 60246: Pyridine Operator/Techni zaire ID = [id number] for CHUCHO SALDIVAR CBC W/PLT COUNT & AUTO [id number] 12:15:00 Test Item Value Reference Range Interpretation [...] PERCENT (BEAKER) (test code = 2801) POCT-GLUCOSE [id number] 11:54:00 Test Item Value Reference Range Interpretation Comments POC-GLUCOSE METER 226 mg/dL 70-110 H : TESTED A T [facility] 6720 (BEAKER) (test code = [facility], 1538) 33976: Pyridine Operator/Techni zaire ID = [id number] for IB RAHIM, S[place] BASIC METABOLIC [id number] 08:18:00 Test Item Value Reference Range Interpretation [...] S NOT APPLICABLE FOR DIALYSIS PATIEN TS. Pyridine Operator ID - NTPPOCT-GLUCOSE [id number] 08:07:00 Test Item Value Reference Range Interpretation Comments POC-GLUCOSE METER 166 mg/dL 70-110 H : TESTED A T [facility] 6720 (BEAKER) (test code = [facility], 1538) 77062: Pyridine Operator/Techni zaire ID = [id number] for IB RAHIM, [place] HEPATIC FUNCTION [id number] 05:05:00 Test Item Value Reference Range Interpretation [...] (test code = 19 U/L 6-55 347) Pyridine Operator ID - GABBYASISpecimekaz slightly ictericPOCT-GLUCOSE [id number] 17:47:00 Test Item Value Reference Range Interpretation Comments POC-GLUCOSE METER 222 mg/dL 70-110 H : TESTED A T [facility] 6720 (BEAKER) (test code = [facility], 1538) 04931: Pyridine Operator/Techni zaire ID = [id number] for BRAXTON MORAN POCT-GLUCOSE [id number] 12:25:00 Test Item Value Reference Range Interpretation Comments POC-GLUCOSE METER 311 mg/dL 70-110 H : TESTED A T [facility] 6720 (BEAKER) (test code = [facility], 1538) 10287: Pyridine Operator/Techni zaire ID = [id number] for BRAXTON MORAN POCT-GLUCOSE [id number] 07:49:00 Test Item Value Reference Range Interpretation Comments POC-GLUCOSE METER 190 mg/dL 70-110 H : TESTED A T [facility] 6720 (BEAKER) (test code = [facility], 1538) 49792: Pyridine Operator/Techni zaire ID = [id number] for BRAXTON MORAN VITAMIN B12 AND [id number] 06:11:00 Test Item Value Reference Range Interpretation Comments VITAMIN B12 (BEAKER) (test code = 873 pg/mL 213-816 H 774) FOLATE (BEAKER) (test code = 362) 12.30 ng/mL >=7.00 Pyridine Operator ID - EDASIBASIC METABOLIC [id number] 05:21:00 Test Item Value Reference Range Interpretation [...] S NOT APPLICABLE FOR DIALYSIS PATIEN TS. Pyridine Operator ID - EDASIHEPATIC FUNCTION [id number] 05:21:00 Test Item Value Reference Range Interpretation [...] (test code = 19 U/L 6-55 347) Pyridine Operator ID - EDASICBC W/PLT COUNT & AUTO [id number] 05:12:00 Test Item Value Reference Range Interpretation [...] PERCENT (BEAKER) (test code = 2801) PROTHROMBIN TIME/[id number] 04:56:00 Test Item Value Reference Range Interpretation [...] 2.5-3.5 for patients wiht mechanical heart valves.POCT-GLUCOSE [id number] 22:11:00 Test Item Value Reference Range Interpretation Comments POC-GLUCOSE METER 195 mg/dL 70-110 H : [facility] ([facility] (test code = [facility] 1538) 51750: Pyridine Operator/Techni zaire ID = [id number] for ADDIE SAMIRA HEMOGLOBIN AND [id number] 16:15:00 Test Item Value Reference Range Interpretation Comments HEMOGLOBIN (BEAKER) (test code = 8.6 GM/DL 13.7-17.5 L 410) HEMATOCRIT (BEAKER) (test code = 30.2 % 40.1-51.0 L 411) Pyridine Operator ID - [id number] 13:02:00 Test Item Value Reference Range Interpretation Comments FERRITIN (BEAKER) (test code = 73.10 ng/mL 5.00-275.00 361) Pyridine Operator ID - EDASIIRON, TIBC, % SAT. (WITHOUT FERRITIN)2019-12-25 12:42:00 Test Item Value Reference Range Interpretation Comments IRON (BEAKER) (test code = 547) 29.0 ug/dL 40.0-160.0 L TOTAL IRON BINDING CAPACITY 151 ug/dL 250-450 L (BEAKER) (test code = 769) IRON % SATURATION (2) (BEAKER) 19 % 20-55 L (test code = 2590) Pyridine Operator ID - EDASICOMPREHENSIVE METABOLIC [id number] 06:44:00 Test Item Value Reference Range Interpretation [...] S NOT APPLICABLE FOR DIALYSIS PATIEN TS. Pyridine Operator ID - EDASICBC W/PLT COUNT & AUTO [id number] 05:55:00 Test Item Value Reference Range Interpretation [...] PERCENT (BEAKER) (test code = 2801) POCT-GLUCOSE [id number] 23:39:00 Test Item Value Reference Range Interpretation Comments POC-GLUCOSE METER 307 mg/dL 70-110 H : TESTED A T [facility] 6720 (BEAKER) (test code = [facility], 1538) 60572: Pyridine Operator/Techni zaire ID = [id number] for Erendira Talbert (contrac t) RAD, CHEST, 1 VIEW, NON [id number] 18:52:00REFERRING MD: ANIL SALVADOR Reason for exam:->sobShould [...] MDReport Verified Date/Time: 12/24/2019 18:52:34 Reading Location: [address] Consult Reading Room [facility] MET[facility]OLIC PAN[facility] 2019-06-04 09:29:00 Test Item [...] Specimen slightly ictericCBC W/PLT COUNT & AUTO [id number] 08:54:00 Test Item Value Reference Range Interpretation [...] (BEAKER) (test code = 2801) HEPATITIS C [id number] 12:25:00 Test Item Value Reference Range Interpretation Comments HEPATITIS C ANTIBODY (BEAKER) (test Reactive Nonreactive A code = 367) ALPHA FETOPROTEIN (AFP), TUMOR [id number] 15:45:00 Test Item Value Reference Range Interpretation Comments ALPHA-FETOPROTEIN (BEAKER) (test 2.7 ng/mL <10.0 code = 1094) BASIC METABOLIC [id number] 15:36:00 Test Item Value Reference Range Interpretation [...] DIALYSIS PATIEN TS. Specimen slightly ictericHEPATIC FUNCTION [id number] 15:35:00 Test Item Value Reference Range Interpretation [...] 21 U/L 6-55 347) Specimen slightly ictericPROTHROMBIN TIME/[id number] 15:00:00 Test Item Value Reference Range Interpretation [...] mechanical heart valves.CBC W/PLT COUNT & AUTO [id number] 14:53:00 Test Item Value Reference Range Interpretation [...] code = 2801) ALPHA FETOPROTEIN (AFP), TUMOR [id number] 14:10:00 Test Item Value Reference Range Interpretation Comments ALPHA-FETOPROTEIN (BEAKER) (test 2.7 ng/mL <10.0 code = 1094) BASIC METABOLIC [id number] 13:52:00 Test Item Value Reference Range Interpretation [...] DIALYSIS PATIEN TS. Specimen slightly ictericHEPATIC FUNCTION [id number] 13:52:00 Test Item Value Reference Range Interpretation [...] 24 U/L 6-55 347) Specimen slightly ictericPROTHROMBIN [id number] 13:49:00 Test Item Value Reference Range Interpretation [...] mechanical heart valves.CBC W/PLT COUNT & AUTO [id number] 13:35:00 Test Item Value Reference Range Interpretation [...] (test code = 2801) POCT HEMOGLOBIN A1C [id number] 21:30:00 Test Item Value Reference Range Interpretation Comments POCT HBA1C (test code = 4548-4) 7.4 % 4-6 A Lab Interpretation (test code = Abnormal 39517-2) [facility] [id number] 21:30:00 Test Item Value Reference Range Interpretation Comments POCT HBA1C (test code = 4548-4) 7.4 % 4-6 A Lab Interpretation (test code = Abnormal 05207-5) [id number] 14:59:00 Test Item Value Reference Range Interpretation Comments T4 TOTAL (BEAKER) (test code = 895) 5.7 ug/dL 4.9-11.7 [id number] 13:20:00 Test Item Value Reference Range Interpretation Comments T3 TOTAL (BEAKER) (test code = 656) 113 ng/dL 48-159 CYTOMEGALOVIRUS ANTIBODY, [id number] 11:11:00 Test Item Value Reference Range Interpretation Comments CYTOMEGALOVIRUS, IGG (BEAKER) Positive Negative, Equivocal A (test code = 3429) CMV IgG Result Interpretation: </= 0.8 Al Negative 0.9-1.0 Al Equivocal >/=1.1 Al PositiveCYTOMEGALOVIRUS ANTIBODY, [id number] 11:11:00 Test Item Value Reference Range Interpretation Comments CYTOMEGALOVIRUS IGM ANTIBODY Negative Negative, Equivocal (BEAKER) (test code = 3437) CMV IgM Result Interpretation: </= 0.8 Al Negative 0.9-1.0 Al Equivocal >/= 1.1 Al PositiveEBV ANTIBODY, [id number] 11:08:00 Test Item Value Reference Range Interpretation Comments EDENILSON TAVERAS VIRAL CAPSID Positive Negative, Equivocal A ANTIGEN IGG (BEAKER) (test code = 3415) Edenilson Taveras Viral Capsid Antigen IgG Result Interpretation: </= 0.8 Al Negative 0.9-1.0 Al Equivocal >/= 1.1 Al PositiveEBV ANTIBODY, [id number] 11:08:00 Test Item Value Reference Range Interpretation Comments EDENILSON TAVERAS VIRAL CAPSID Negative Negative, Equivocal ANTIGEN IGM (BEAKER) (test code = 3418) Edenilson Taveras Viral Capsid Antigen IgM Result Interpretation: </= 0.8 Al Negative 0.9-1.0 Al Equivocal >/= 1.1 Al PositiveVARICELLA ZOSTER ANTIBODY, [id number] 11:08:00 Test Item Value Reference Range Interpretation Comments VARICELLA ZOSTER IGG (AL) (BEAKER) > (test code = 3197) VARICELLA ZOSTER RESULT INTERPRETATIONS: <=0.8 Al Nonreactive: Presumed non- immune to VZV 0.9-1.0Al Equivocal >=1.1 Al Reactive: Presumed immune to VZV [id number] 13:11:00 Test Item Value Reference Range Interpretation Comments ALPHA-1 ANTITRYPSIN (BEAKER) 155.30 mg/dL 90.00-200.00 (test code = 502) HEMOGLOBIN [id number] 13:08:00 Test Item Value Reference Range Interpretation Comments HEMOGLOBIN A1C (BEAKER) (test code = 6.4 % 4.3-6.1 H 368) HEPATITIS A ANTIBODY, [id number] 12:51:00 Test Item Value Reference Range Interpretation Comments HEPATITIS A IGG ANTIBODY (BEAKER) Reactive Nonreactive A (test code = 2797) HEPATITIS C [id number] 12:51:00 Test Item Value Reference Range Interpretation Comments HEPATITIS C ANTIBODY (BEAKER) (test Reactive Nonreactive A code = 367) [id number] 12:48:00 Test Item Value Reference Range Interpretation Comments PROSTATE SPECIFIC ANTIGEN (BEAKER) 0.4 ng/mL 0.0-4.0 (test code = 844) HIV-1 ANTIGEN WITH HIV-1/2 [id number] 12:48:00 Test Item Value Reference Range Interpretation Comments HIV-1 ANTIGEN WITH HIV 1\\T\\2 Nonreactive Nonreactive ANTIBODY (2) (BEAKER) (test code = 2586) VITAMIN D, [id number] 12:46:00 Test Item Value Reference Range Interpretation Comments VITAMIN D 25-OH (BEAKER) (test code 7.7 ng/mL 6.6-49.9 = 2764) Effective 03/08/2017: Reference Range ChangeNew: 6.6-49.9 ng/mL Previous: 13.0- 47.8 ng/mLRecommendedVitamin D Target Range: 30.0-40.0 ng/mLURINALYSIS W/ [id number] 11:55:00 Test Item Value Reference Range Interpretation [...] /LPF SOURCE(BEAKER) (test code = 2795) CRYPTOCOCCAL [id number] 11:10:00 Test Item Value Reference Range Interpretation Comments CRYPTOCOCCAL ANTIGEN, SERUM Negative Negative, Interference (BEAKER) (test code = 1828) [id number] 10:59:00 Test Item Value Reference Range Interpretation Comments THYROID STIMULATING HORMONE 2.10 uIU/mL 0.35-4.94 (BEAKER) (test code = 772) [id number] 10:59:00 Test Item Value Reference Range Interpretation Comments FERRITIN (BEAKER) (test code = 361) 69 ng/mL 5-275 [id number] 10:51:00 Test Item Value Reference Range Interpretation Comments RPR SCREEN (BEAKER) (test code = Nonreactive Nonreactive 420) [id number] 10:49:00 Test Item Value Reference Range Interpretation Comments TRANSFERRIN (BEAKER) (test code = 197 mg/dL 174-382 541) Specimen slightly [id number] 10:45:00 Test Item Value Reference Range Interpretation Comments MAGNESIUM (BEAKER) (test code = 1.5 mg/dL 1.6-2.6 L 627) [id number] 10:45:00 Test Item Value Reference Range Interpretation Comments PHOSPHORUS (BEAKER) (test code = 3.6 mg/dL 2.3-4.7 604) URIC [id number] 10:45:00 Test Item Value Reference Range Interpretation Comments URIC ACID (BEAKER) (test code = 4.8 mg/dL 2.6-7.2 773) Specimen slightly ictericCOMPREHENSIVE METABOLIC [id number] 10:45:00 Test Item Value Reference Range Interpretation [...] FOR DIALYSIS PATIEN TS. Specimen slightly ictericLIPID [id number] 10:45:00 Test Item Value Reference Range Interpretation [...] 160-189 Very High >=190 Specimen slightly ictericBILIRUBIN, [id number] 10:45:00 Test Item Value Reference Range Interpretation Comments BILIRUBIN DIRECT (BEAKER) (test 1.6 mg/dL 0.1-0.5 H code = 706) GAMMA GLUTAMYL TRANSFERASE (GGT)2018-12-20 10:45:00 Test Item Value Reference Range Interpretation Comments GAMMA GLUTAMYL TRANSFERASE (BEAKER) 33 U/L 9-64 (test code = 364) Specimen slightly [id number] 10:42:00 Test Item Value Reference Range Interpretation Comments PARTIAL THROMBOPLASTIN TIME 37.9 seconds 22.5-36.0 H (BEAKER) (test code = 760) PROTHROMBIN TIME/[id number] 10:36:00 Test Item Value Reference Range Interpretation [...] is 2.5-3.5 for patients wiht mechanical heart valves.[id number] 10:36:00 Test Item Value Reference Range Interpretation Comments ETHANOL (BEAKER) (test code = 400) < mg/dL <=10 [id number] 10:36:00 Test Item Value Reference Range Interpretation Comments FIBRINOGEN LEVEL (BEAKER) (test 207 mg/dl 225-434 L code = 658) BLOOD GAS, [id number] 10:35:00 Test Item Value Reference Range Interpretation [...] 21.0 % CBC W/PLT COUNT & AUTO [id number] 10:25:00 Test Item Value Reference Range Interpretation [...] % 0-1 PERCENT (BEAKER) (test code = 2807) CALCIUM, [id number] 10:20:00 Test Item Value Reference Range Interpretation Comments CALCIUM IONIZED (BEAKER) (test 1.05 mmol/L 1.12-1.27 L code = 698) PH, BLOOD (BEAKER) (test code = 7.41 1810) RAD, MANDIBLE, MIN 4 [id number] 16:56:00REFERRING MD: ANIL SALVADOR Reason for Exam:->pretransplant liver evaluationFINAL REPORT TECHNIQUE: Minimum four views of the mandible. INDICATION: pretransplant liver evaluation. COMPARISON: None. FINDINGS:No fracture or dislocation.No periapical lucencies.Caries of a maxillary molar, side indeterminate.Mild degenerative disc changes at C4-C5, C5-C6, andC6-C7. IMPRESSION: No periapical lucency. Caries of a maxillary molar, side indeterminate. Signed: Tawanda Alvarez MDReport Verified Date/Time: 12/19/2018 16:56:31 Reading Location: [address] Radiology Reading Room RAD, CHEST, 2 [id number] 15:51:00REFERRING : ANIL SALVADOR Reason for Exam:- [...] MDReport Verified Date/Time: 12/19/2018 15:51:17 Reading Location: [facility] Mammo Reading Room MR, ABDOMEN, [id number] 14:51:00REFERRING CARO VEGAINAL REPORT TECHNIQUE: MRI of [...] MDReport Verified Date/Time: 12/19/2018 14:51:24 Reading Location: [address] Radiology Reading Room [facility] 2018-12-06 11:12:00 Test Item Value Reference Range Interpretation Comments ETHANOL (BEAKER) (test code = 400) < mg/dL <=10 BASIC METABOLIC [id number] 10:56:00 Test Item Value Reference Range Interpretation [...] DIALYSIS PATIEN TS. Specimen moderately ictericHEPATIC FUNCTION [id number] 10:56:00 Test Item Value Reference Range Interpretation [...] 27 U/L 6-55 347) Specimen moderately ictericPROTHROMBIN TIME/[id number] 10:40:00 Test Item Value Reference Range Interpretation [...] mechanical heart valves.CBC W/PLT COUNT & AUTO [id number] 10:38:00 Test Item Value Reference Range Interpretation [...] PERCENT (BEAKER) (test code = 2801) BLOOD [id number] 08:00:00 Test Item Value Reference Range Interpretation Comments CULTURE (BEAKER) (test No growth in 5 days code = 1095) BLOOD [id number] 08:00:00 Test Item Value Reference Range Interpretation Comments CULTURE (BEAKER) (test No growth in 5 days code = 1095) BODY FLUID CULTURE + GRAM [id number] 12:20:00 Test Item Value Reference Range Interpretation Comments CULTURE (BEAKER) (test code No growth = 1095) GRAM STAIN RESULT (BEAKER) 1+ WBCs (test code = 1123) GRAM STAIN RESULT (BEAKER) No organisms seen (test code = 77234) HEPATITIS C PCR, [id number] 08:32:00 Test Item Value Reference Range Interpretation Comments HCV RESULT COMPONENT HCV RNA not detected HCV RNA not detected (BEAKER) (test code = 2699) This test uses a Real-Time Polymerase Chain Reaction (RT-PCR) methodology and was performed using [employer] Ampliprep/KHOA TaqMan HCV test kit version 2.0 ([employer]).Reportable range for this assay is 15 - 100,000,000 IU per mL (1.18 - 8.00 Log IU/mL).POCT-GLUCOSE [id number] 08:09:00 Test Item Value Reference Range Interpretation Comments POC-GLUCOSE METER 117 mg/dL 70-110 H TESTED AT [facility] 67[address] ([facility]) (test code = ABELMARYAN [place] 1538) [address] CALCIUM, [id number] 05:54:00 Test Item Value Reference Range Interpretation Comments CALCIUM IONIZED (BEAKER) (test 1.01 mmol/L 1.12-1.27 L code = 698) PH, BLOOD (BEAKER) (test code = 7.45 1810) COMPREHENSIVE METABOLIC [id number] 05:07:00 Test Item Value Reference Range Interpretation [...] APPLICABLE FOR DIALYSIS PATIEN TS. Specimen slightly [id number] 05:06:00 Test Item Value Reference Range Interpretation Comments PHOSPHORUS (BEAKER) (test code = 3.3 mg/dL 2.3-4.7 604) [id number] 05:06:00 Test Item Value Reference Range Interpretation Comments MAGNESIUM (BEAKER) (test code = 1.5 mg/dL 1.6-2.6 L 627) CBC W/PLT COUNT & AUTO [id number] 04:43:00 Test Item Value Reference Range Interpretation [...] PERCENT (BEAKER) (test code = 2801) POCT-GLUCOSE [id number] 21:35:00 Test Item Value Reference Range Interpretation Comments POC-GLUCOSE METER 154 mg/dL 70-110 H TESTED AT [place] [address] ([facility]) (test [facility] = [facility] 1538) [address] POCT-GLUCOSE [id number] 17:21:00 Test Item Value Reference Range Interpretation Comments POC-GLUCOSE METER 138 mg/dL 70-110 H TESTED AT [place] [address] ([facility]) (test code = [facility] 1538) [address] POCT-GLUCOSE [id number] 13:27:00 Test Item Value Reference Range Interpretation Comments POC-GLUCOSE METER 166 mg/dL 70-110 H TESTED AT [place] [address] ([facility]) (test code = [facility] Juan J [facility] 1538) [address] CBC W/PLT COUNT & AUTO [id number] 12:00:00 Test Item Value Reference Range Interpretation [...] 3438) Received comment: User comments: Slide comments:POCT-GLUCOSE [id number] 11:52:00 Test Item Value Reference Range Interpretation Comments POC-GLUCOSE METER 180 mg/dL 70-110 H TESTED AT [facility] [address] (BEAKER) (test code = NICOLE Arita [facility] 1538) [address] POCT-GLUCOSE [id number] 08:09:00 Test Item Value Reference Range Interpretation Comments POC-GLUCOSE METER 115 mg/dL 70-110 H TESTED AT [place] [address] [facility] (test code = NICOLE Arita [facility] 1538) [address] COMPREHENSIVE METABOLIC [id number] 05:59:00 Test Item Value Reference Range Interpretation [...] U/L 6-55 (test code = 347) EGFR ([facility]) (test 119 ESTIMATE D GFR IS code = 1092) mL/min/1.73 sq NOT ACCURA TE m CREATININE CLEARANCE IN PREDICTING GLOMERULAR FILTRATION RATE . ESTIMATED GFR I S NOT APPLICABLE FOR DIALYSIS PATIEN TS. Specimen slightly [id number] 05:57:00 Test Item Value Reference Range Interpretation Comments MAGNESIUM ([place]) (test code = 1.6 mg/dL 1.6-2.6 627) POCT-GLUCOSE [id number] 22:30:00 Test Item Value Reference Range Interpretation Comments POC-GLUCOSE METER 186 mg/dL 70-110 H TESTED AT [place] [address] ([facility]) (test code = NICOLE Arita [facility] 1538) [address] POCT-GLUCOSE [id number] 18:33:00 Test Item Value Reference Range Interpretation Comments POC-GLUCOSE METER 117 mg/dL 70-110 H TESTED AT [place] [address] ([facility]) (test code = NICOLE Arita [facility] 1538) [address] U/S, [id number] 17:34:00REFERRING MD: ANIL SALVADOR Please give 25g [...] 2% lidocaine anesthesia was administered. A 5 Slovak catheter was advanced into the peritoneal cavityand 1300 cc of addison fluid was removed. The catheter was removed without immediate complication. Samples left with interstitial sent to the lab for analysis. IMPRESSION:Uncomplicated ultrasound-guided paracentesis with 1300 cc fluid removed. Signed: Mauricio Cullen MDReport Verified Date/Time: 10/29/2018 17:34:00 Reading Location: [place] [address] Ultrasound Reading Room VANCOMYCIN LEVEL, [id number] 17:22:00 Test Item Value Reference Range Interpretation Comments VANCOMYCIN TROUGH (BEAKER) (test 7.3 ug/mL 10.0-20.0 L code = 522) CBC W/PLT COUNT & AUTO [id number] 15:00:00 Test Item Value Reference Range Interpretation [...] = 2801) BODY FLUID CELL COUNT WITH [id number] 13:45:00 Test Item Value Reference Range Interpretation [...] Tube (test code = 2873) RESPIRATORY PANEL [id number] 12:27:00 Test Item Value Reference Range Interpretation [...] decisions. This sample was tested at the [facility] using the [employer] Respiratory Panel. It is FDA cleared and has been verified and approved by the [facility] for clinical use on nasopharyngeal swab specimens.The performance of the FilmArrayRP has not been established in individuals who received influenza vaccine. Recent administration of a nasal influenza vaccine may cause false positive results for Influenza A and/orInfluenza B.POCT-GLUCOSE [id number] 12:16:00 Test Item Value Reference Range Interpretation Comments POC-GLUCOSE METER 196 mg/dL 70-110 H TESTED AT [facility] 67[address] (BEAKER) (test code = NICOLE AL[place] 1538) [address] RESPIRATORY PANEL [id number] 10:59:00 Test Item Value Reference Range Interpretation [...] decisions. This sample was tested at the [facility] using the [employer] FilmArray Respiratory Panel. It is FDA cleared and has been verified and approved by the [facility] for clinical use on nasopharyngeal swab specimens.The performance of the FilmArrayRP has not been established in individuals who received influenza vaccine. Recent administration of a nasal influenza vaccine may cause false positive results for Influenza A and/orInfluenza B.POCT-GLUCOSE [id number] 08:15:00 Test Item Value Reference Range Interpretation Comments POC-GLUCOSE METER 184 mg/dL 70-110 H TESTED AT [facility] 67[address] (BEAKER) (test code = N[place]LE [place] 1538) [address] CBC W/PLT COUNT & AUTO [id number] 07:49:00 Test Item Value Reference Range Interpretation [...] APPLICABLE FOR DIALYSIS PATIEN TS. Specimen moderately [id number] 04:31:00 Test Item Value Reference Range Interpretation Comments MAGNESIUM (BEAKER) (test code = 1.9 mg/dL 1.6-2.6 627) LACTIC ACID, [id number] 04:18:00 Test Item Value Reference Range Interpretation Comments LACTATE BLOOD VENOUS (2) (BEAKER) 1.3 mmol/L 0.5-2.2 (test code = 2872) Specimen moderately ictericPOCT-GLUCOSE [id number] 18:00:00 Test Item Value Reference Range Interpretation Comments POC-GLUCOSE METER 121 mg/dL 70-110 H TESTED AT [facility] 67[address] (BEAKER) (test code = NICOLE AL[place] 1538) [address] [id number] 12:39:00 Test Item Value Reference Range Interpretation Comments PROCALCITONIN (BEAKER) (test code 4.50 ng/mL <0.05 H = 3036) SEPSIS RISK (ng/mL)Low: 0.05-0.50Intermediate: 0.51-2.00High: >=2.01POCT- GLUCOSE [id number] 12:20:00 Test Item Value Reference Range Interpretation Comments POC-GLUCOSE METER 148 mg/dL 70-110 H TESTED AT [facility] 67[address] (BEAKER) (test code = NICOLE ALAN [place] 1538) [address] LEGIONELLA ANTIGEN, [id number] 12:13:00 Test Item Value Reference Range Interpretation Comments L. PNEUMOPHILA Negative - see Negative fo r L. SEROGP 1 UR AG comment pneumophila (BEAKER) (test code serogrou p 1 antigen, = 1156) suggesting no r ecent or current infe ction with this serog roup. Legionellosis c annot be ruled out si nce other serogroup s and species may cau se disease. STREP PNEUMONIAE [id number] 12:13:00 Test Item Value Reference Range Interpretation Comments STREP PNEUMONIAE Presumptive negative Presumptive negative ANTIGEN (AnaptysBioAKER) for pneumococcal for pneumococcal (test code = 1615) pneumonia - see pneumonia - see comment commen Presumptive negative for pneumococcal pneumonia, suggesting no current or recent pneumococcal infection. Infection due to S. pneumoniae cannot be ruled out since the antigen present in the sample may be below the detection limit of the test. RAPID INFLUENZA A&B [id number] 12:11:00 Test Item Value Reference Range Interpretation Comments RAPID INFLUENZA A AG (BEAKER) Negative Negative, Inconclusive (test code = 1622) RAPID INFLUENZA B AG (BEAKER) Negative Negative, Inconclusive (test code = 1623) LACTIC ACID, [id number] 10:51:00 Test Item Value Reference Range Interpretation Comments LACTATE BLOOD VENOUS (2) (BEAKER) 3.0 mmol/L 0.5-2.2 H (test code = 2872) Specimen moderately ictericU/S, ABDOMINAL, [id number] 07:19:00REFERRING : ANIL SALVADOR Please perform with [...] MDReport Verified Date/Time: 10/28/2018 07:19:25 Reading Location: [address] Transitional Reading Room RAPID DRUG SCREEN, [id number] 07:07:00 Test Item Value Reference Range Interpretation [...] situations. Chain of custody not maintained. Some jwep-rci-yptqgsr medications, as well as adulterants, may cause inaccurate results. Clinical correlation should be applied. Liz comprehensive drug screen or confirmation of a detected drug may be performed upon request.CT, BRAIN, WITHOUT [id number] 06:42:00REFERRING MD: ANIL LEROYTFINAL REPORT CT, BRAIN, [...] Verified Date/Time: 10/28/2018 06:42:47 VITAMIN B12 AND [id number] 06:21:00 Test Item Value Reference Range Interpretation Comments VITAMIN B12 (BEAKER) (test code = 719 pg/mL 213-816 774) FOLATE (BEAKER) (test code = 362) 13.7 ng/mL >=7.0 TROPONIN [id number] 06:05:00 Test Item Value Reference Range Interpretation [...] H (test code = 2590) COMPREHENSIVE METABOLIC [id number] 05:44:00 Test Item Value Reference Range Interpretation [...] APPLICABLE FOR DIALYSIS PATIEN TS. Specimen moderately [id number] 05:38:00 Test Item Value Reference Range Interpretation Comments MAGNESIUM (BEAKER) (test code = 2.3 mg/dL 1.6-2.6 627) LACTIC ACID, [id number] 05:32:00 Test Item Value Reference Range Interpretation Comments LACTATE BLOOD VENOUS 4.1 mmol/L 0.5-2.2 H Specime n slightly (2) (BEAKER) (test hemolyzed code = 6972) Specimen moderately ictericTROPONIN [id number] 02:28:00 Test Item Value Reference Range Interpretation [...] disease, and persistent tachyarrhythmia.RAD, ABDOMEN/KUB, 1 VIEW [id number] 02:04:00REFERRING MD: ANIL SALVADOR Reason for exam:->NG [...] Navarrete MDReport Verified Date/Time: 10/28/2018 02:04:20 HROMBIN TIME/[id number] 01:58:00 Test Item Value Reference Range Interpretation [...] mechanical heart valves.CBC W/PLT COUNT & AUTO [id number] 01:45:00 Test Item Value Reference Range Interpretation [...] User comments: Slide comments:URINALYSIS W/ REFLEX URINE [id number] 01:36:00 Test Item Value Reference Range Interpretation [...] code = 516) SOURCE(BEAKER) (test code = 2103) COMPREHENSIVE METABOLIC [id number] 01:16:00 Test Item Value Reference Range Interpretation [...] APPLICABLE FOR DIALYSIS PATIEN TS. Specimen moderately [id number] 01:15:00 Test Item Value Reference Range Interpretation Comments AMMONIA (BEAKER) (test code = 348) 69 mol/L 18-72 LACTIC ACID, [id number] 01:08:00 Test Item Value Reference Range Interpretation Comments LACTATE BLOOD VENOUS (2) (BEAKER) 3.2 mmol/L 0.5-2.2 H (test code = 2872) Specimen moderately [id number] 01:08:00 Test Item Value Reference Range Interpretation Comments MAGNESIUM (BEAKER) (test code = 1.1 mg/dL 1.6-2.6 L 627) RAD, CHEST, 1 VIEW, NON [id number] 00:52:00REFERRING MD: ANIL SALVADOR Reason for exam:->sepsisShould [...] of an acute osseous abnormality. Signed: Williams Bahenaeport Verified Date/Time: 10/28/2018 00:52:42 Reading Location: [address] Reading Room ACTIN (SMOOTH MUSCLE) ANTIBODY, [id number] 08:28:00 Test Item Value Reference Range Interpretation Comments SCAN RESULT (test code = 5399844) [id number] 08:27:00 Test Item Value Reference Range Interpretation Comments SCAN RESULT (test code = 3963815) NILS TITER AND [id number] 09:55:00 Test Item Value Reference Range Interpretation Comments NILS TITER (BEAKER) (test code = :160 1541) NILS PATTERN (BEAKER) (test code = Speckled 1781) ANTI-NUCLEAR ANTIBODY (NILS)2018-10-05 09:54:00 Test Item Value Reference Range Interpretation Comments ANTI-NUCLEAR ANTIBODY (NILS) (BEAKER) Positive Negative A (test code = 418) Test performed by IFA method.[id number] 10:54:00 Test Item Value Reference Range Interpretation Comments FERRITIN (BEAKER) (test code = 361) 218 ng/mL 5-275 HEPATITIS A ANTIBODY, [id number] 10:18:00 Test Item Value Reference Range Interpretation Comments HEPATITIS A IGG ANTIBODY (BEAKER) Reactive Nonreactive A (test code = 2797) ALPHA FETOPROTEIN (AFP), TUMOR [id number] 10:14:00 Test Item Value Reference Range Interpretation Comments ALPHA-FETOPROTEIN (BEAKER) (test 3.5 ng/mL <10.0 code = 1094) HEPATITIS A ANTIBODY, [id number] 10:14:00 Test Item Value Reference Range Interpretation Comments HEPATITIS A IGM ANTIBODY (BEAKER) Nonreactive Nonreactive (test code = 498) HEPATITIS B CORE ANTIBODY, [id number] 10:14:00 Test Item Value Reference Range Interpretation Comments HEPATITIS B CORE TOTAL ANTIBODY Nonreactive Nonreactive (BEAKER) (test code = 497) HEPATITIS B SURFACE [id number] 09:42:00 Test Item Value Reference Range Interpretation Comments HEPATITIS B SURFACE ANTIBODY < mIU/mL <8.0 (BEAKER) (test code = 647) HEPATITIS B SURFACE [id number] 09:36:00 Test Item Value Reference Range Interpretation [...] 41 % 20-55 (test code = 2590) HCZSB-1-[id number] 09:14:00 Test Item Value Reference Range Interpretation Comments ALPHA-1 ANTITRYPSIN (BEAKER) 159.30 mg/dL 90.00-200.00 (test code = 502) COMPREHENSIVE METABOLIC [id number] 09:10:00 Test Item Value Reference Range Interpretation [...] FOR DIALYSIS PATIEN TS. Specimen slightly ictericBILIRUBIN, [id number] 09:10:00 Test Item Value Reference Range Interpretation Comments BILIRUBIN DIRECT (BEAKER) (test 1.4 mg/dL 0.1-0.5 H code = 706) PROTHROMBIN [id number] 08:38:00 Test Item Value Reference Range Interpretation [...] mechanical heart valves.CBC W/PLT COUNT & AUTO [id number] 08:35:00 Test Item Value Reference Range Interpretation [...] % 0-1 PERCENT (BEAKER) (test code = 4031)"
--- NOTE | 2022-05-23 18:41 | RAD REPORT ---
EXAM DESCRIPTION: RAD - Hand Right 3 View - 05/23/2022 6:11 pm CLINICAL HISTORY: ANIMAL BITE COMPARISON: No comparisons FINDINGS/IMPRESSION: No acute fracture. No malalignment. No significant focal degenerative changes.
--- NOTE | 2022-05-23 18:41 | RAD REPORT ---
EXAM DESCRIPTION: RAD - Hand Left 3 View - 05/23/2022 6:11 pm CLINICAL HISTORY: ANIMAL BITE COMPARISON: No comparisons FINDINGS/IMPRESSION: No acute fracture. No malalignment. Mild interphalangeal joint space narrowing. No radiopaque foreign body.
[2022-05-23] MEDS ORDERED: TDAP (DIPHTH,PERTUSS(ACELL),TET VAC) 0.5 ML VIAL IMVAC ONE (19:39)
[2022-05-23] MEDS ORDERED: AMOX/K CLAV 875 MG TAB ONE (19:54)
--- NOTE | 2022-05-23 19:57 | ER ---
Nurse's Notes [facility] Name: Tonny Cardona Age: 66 yrs Sex: Male : 1955 Arrival Date: 05/23/2022 Time: 16:08 Bed DIS2 Private MD: Diagnosis: Bitten by dog;Unspecified open wound of left hand, initial encounter;Puncture wound without foreign body of right hand, initial encounter-multiple Presentation: 05/23 16:32 Chief complaint: Patient states: Dog bite to left hand - pt reports his older dogs ld1 fighting with younger dog. Laceration to left hand. Coronavirus screen: At this time, the client does not indicate any symptoms associated with coronavirus-19. Ebola Screen: No symptoms or risks identified at this time. Initial Sepsis Screen: Does the patient meet any 2 criteria? No. Patient's initial sepsis screen is negative. Does the patient have a suspected source of infection? No. Patient's initial sepsis screen is negative. Risk Assessment: Do you want to hurt yourself or someone else? Patient reports no desire to harm self or others. Onset of symptoms was May 23, 2022. 16:32 Method Of Arrival: Ambulatory ld1 16:32 Acuity: FAIZA 3 ld1 Triage Assessment: 16:30 Bite description: bite sustained to left hand by a dog, animal information: ld1 vaccination(s) is unknown. General: Appears in no apparent distress. comfortable, Behavior is calm, cooperative, appropriate for age. Pain: Complains of pain in left hand Pain does not radiate. Pain currently is 6 out of 10 on a pain scale. Quality of pain is described as throbbing, Pain began suddenly. EENT: No signs and/or symptoms were reported regarding the EENT system. Neuro: Level of Consciousness is awake, alert, obeys commands, Oriented to person, place, time, situation. Cardiovascular: Capillary refill < 3 seconds Patient's skin is warm and dry. Respiratory: Airway is patent Respiratory effort is even, unlabored. GI: Abdomen is round non-distended. : No signs and/or symptoms were reported regarding the genitourinary system. Injury Description: Bite caused by a dog. Historical: - Allergies: 16:30 Ativan; ld1 - PMHx: 16:30 ADD/ADHD; Cirrhosis; Diabetes - NIDDM; psoriasis; Hypertension; ld1 - PSHx: 16:30 hernia repair; ld1 - Immunization history:: Adult Immunizations up to date, Client reports receiving the 2nd dose of the Covid vaccine. - Social history:: Smoking status: Patient denies any tobacco usage or history of. Patient/guardian denies using alcohol, the patient reports quitting approximately 3 years ago. Screenin:49 [facility] ED Fall Risk Assessment (Adult) History of falling in the last 3 months, as6 including since admission No falls in past 3 months (0 pts) Score/Fall Risk Level 0 - 2 = Low Risk. Abuse screen: Denies threats or abuse. Denies injuries from another. Nutritional screening: No deficits noted. Tuberculosis screening: No symptoms or risk factors identified. Assessment: 20:08 Derm: Wound noted left hand. as6 Vital Signs: 16:30 BP 169 / 72; Pulse 81; Resp 18; Temp 97.1(O); Pulse Ox 100% on R/A; Weight 111.13 kg; ld1 Height 5 ft. 9 in. (175.26 cm); Pain 8/10; 16:30 Body Mass Index 36.18 (111.13 kg, 175.26 cm) ld1 ED Course: 16:08 Patient arrived in ED. mr 16:11 Milan Mcbride PA is PHCP. cp 16:11 Milan Coronado MD is Attending Physician. cp 16:30 Arm band placed on right wrist. ld1 16:33 Triage completed. ld1 18:13 XRAY Hand LEFT 3 View In Process Unspecified. EDMS 18:13 XRAY Hand RIGHT 3 View In Process Unspecified. EDMS 19:34 Mikey Cervantes, DIANE is Primary Nurse. as6 19:49 Call light in reach. as6 19:54 Isaías Bass MD is Referral Physician. cp 20:07 No provider procedures requiring assistance completed. Patient did not have IV access as6 during this emergency room visit. Dressings: Kerlix X 1; left hand non-adherent dressing x 1 left hand 4X4s X 1; left hand. Irrigation of laceration on left hand irrigated with normal saline Patient tolerated well. Wound care: to abrasion, located on left hand was cleaned with soap and water, irrigated with normal saline, dressed with 4X4s, Kerlix. Administered Medications: 19:48 Drug: Tetanus-Diphtheria Toxoid Adult 0.5 ml {Mixer [employer]: [employer] ([employer]). Exp: as6 02/19/2023. Lot #: [id number]. } Route: IM; Site: right deltoid; 20:07 Follow up: Response: (VIS) Vaccine information sheet provided today. Questions and/or as6 concerns addressed. VIS edition date: Jan 01, 2021.; No adverse reaction 19:56 Drug: Augmentin (Amoxicillin-Clavulanate) 875 mg Route: PO; as6 20:07 Follow up: Response: No adverse reaction as6 Medication: 19:49 Vaccine Information Statement (VIS) provided today. Questions and/or concerns as6 addressed. VIS edition date: January 01, 2021. Outcome: 19:56 Discharge ordered by . vishal 20:08 Discharged to home ambulatory. as6 20:08 Condition: stable 20:08 Discharge instructions given to patient, Instructed on discharge instructions, follow up and referral plans. medication usage, wound care, Demonstrated understanding of instructions, follow-up care, medications, wound care, Prescriptions given X 2. 20:09 Patient left the ED. as6 Signatures: Dispatcher [employer] Marta Ponce Corey, PA PA cp Dibbern, Lauren, DIANE RN ld1 Mikey Cervantes RN RN as6
--- NOTE | 2022-05-23 19:57 | EDPHYS ---
Physician Documentation [facility] Name: Tonny Cardona Age: 66 yrs Sex: Male : 1955 Arrival Date: 05/23/2022 Time: 16:08 Bed DIS2 Private MD: ED Physician Milan Coronado HPI: 05/23 16:40 This 66 yrs old Male presents to ER via Ambulatory with complaints of Dog Bite.cp 16:40 The patient was bitten on the right hand and left hand, by a dog, while trying to stop cp animals from fighting, at home. Onset: The symptoms/episode began/occurred just prior to arrival. Animal information: The animal is known and can be quarantined, Animal control has been notified, Dogs belong to patient. Secondary to the bite the patient reports multiple lacerations, multiple puncture wounds, swelling. Associated signs and symptoms: The patient has no apparent associated signs or symptoms. Severity of symptoms: in the emergency department the symptoms are unchanged, despite home interventions. Historical: - Allergies: 16:30 Ativan; ld1 - PMHx: 16:30 ADD/ADHD; Cirrhosis; Diabetes - NIDDM; psoriasis; Hypertension; ld1 - PSHx: 16:30 hernia repair; ld1 - Immunization history:: Adult Immunizations up to date, Client reports receiving the 2nd dose of the Covid vaccine. - Social history:: Smoking status: Patient denies any tobacco usage or history of. Patient/guardian denies using alcohol, the patient reports quitting approximately 3 years ago. ROS: 16:45 Constitutional: Negative for body aches, chills, fever, poor PO intake. cp 16:45 Cardiovascular: Negative for chest pain, palpitations. cp 16:45 Respiratory: Negative for cough, shortness of breath, wheezing. 16:45 Abdomen/GI: Negative for abdominal pain, nausea, vomiting, and diarrhea. 16:45 Skin: Positive for laceration(s), puncture, swelling, of the right hand and left hand. 16:45 Neuro: Negative for altered mental status, headache, numbness, weakness. 16:45 All other systems are negative. Exam: 16:45 Constitutional: The patient appears in no acute distress, alert, awake, non-toxic, well cp developed, well nourished, obese. 16:45 Head/Face: Normocephalic, atraumatic. cp 16:45 Chest/axilla: Inspection: normal. 16:45 Cardiovascular: Rate: normal, Rhythm: regular, Pulses: Pulses are 2+ in right radial artery and left radial artery. 16:45 Respiratory: the patient does not display signs of respiratory distress, Respirations: normal, no use of accessory muscles, no retractions, labored breathing, is not present. 16:45 Abdomen/GI: Exam negative for discomfort, distension, guarding. 16:45 Skin: injury, bite(s), of the left hand and right hand, large skin tear with laceration noted dorsum left hand with mild bleeding, laceration through dermis approximately 2 cm, jagged appearance, no bony and/or tendon exposure or signs of tendon injury, multiple superficial puncture type wounds noted dorsal side left hand. 16:45 Skin: injury, bite(s), superficial, of the right hand, that can be described as no cp foreign body, irregular, without bleeding, puncture type wounds and small lacerations noted. 16:45 Musculoskeletal/extremity: ROM: full active range of motion, in the right hand and left cp hand, Perfusion: the extremity is normally perfused throughout, the right hand and left hand Sensation intact. Vital Signs: 16:30 BP 169 / 72; Pulse 81; Resp 18; Temp 97.1(O); Pulse Ox 100% on R/A; Weight 111.13 kg; ld1 Height 5 ft. 9 in. (175.26 cm); Pain 8/10; 16:30 Body Mass Index 36.18 (111.13 kg, 175.26 cm) ld1 MDM: 16:34 Patient medically screened. cp 17:00 Differential diagnosis: superficial laceration, tendon injury, vascular injury, rabies, cp cellulitis, open fracture. 19:56 Data reviewed: vital signs, nurses notes, radiologic studies, plain films. cp 19:56 Test interpretation: by ED physician or midlevel provider: plain radiologic studies. cp Counseling: I had a detailed discussion with the patient and/or guardian regarding: the historical points, exam findings, and any diagnostic results supporting the discharge/admit diagnosis, radiology results, the need for outpatient follow up, a hand specialist, to return to the emergency department if symptoms worsen or persist or if there are any questions or concerns that arise at home. Response to treatment: the patient's symptoms have mildly improved after treatment, Wounds cleaned and irrigated with clean dressings applied. Discussed continued home wound care and recommendation to f/u with hand surgeon. Wounds not sutured closed due to nature of injuries. Start oral Augmentin. 05/23 16:33 Order name: XRAY Hand LEFT 3 View; Complete Time: 18:44 cp 05/23 18:44 Interpretation: Report reviewed. cp 05/23 16:33 Order name: XRAY Hand RIGHT 3 View; Complete Time: 18:44 cp 05/23 18:44 Interpretation: Report reviewed. cp 05/23 18:15 Order name: Wound Care: please clean and irrigate hand wounds; Complete Time: 19:56 cp Administered Medications: 19:48 Drug: Tetanus-Diphtheria Toxoid Adult 0.5 ml {Insulation Worker: Patient Communicator ([employer]). Exp: as6 02/19/2023. Lot #: [id number]. } Route: IM; Site: right deltoid; 20:07 Follow up: Response: (VIS) Vaccine information sheet provided today. Questions and/or as6 concerns addressed. VIS edition date: Jan 01, 2021.; No adverse reaction 19:56 Drug: Augmentin (Amoxicillin-Clavulanate) 875 mg Route: PO; as6 20:07 Follow up: Response: No adverse reaction as6 Disposition Summary: 05/23/22 19:56 Discharge Ordered Location: Home cp Problem: new cp Symptoms: have improved cp Condition: Stable cp Diagnosis - Bitten by dog cp - Unspecified open wound of left hand, initial encounter cp - Puncture wound without foreign body of right hand, initial encounter - multiple cp Followup: cp - With: Isaías Bass MD - When: 2 - 3 days - Reason: Wound Recheck Discharge Instructions: - Discharge Summary Sheet cp - Puncture Wound cp - Skin Tear cp - Deep Skin Avulsion cp - Animal Bite, Adult cp Forms: - Medication Reconciliation Form cp - Thank You Letter cp - Antibiotic Education cp - Prescription Opioid Use cp Prescriptions: - Augmentin 875-125 mg Oral Tablet - take 1 tablet by ORAL route every 12 hours for 10 days; 20 tablet; Refills: 0, cp Product Selection Permitted - Diclofenac Sodium 75 mg Oral tablet,delayed release (DR/EC) - take 1 tablet by ORAL route 2 times per day; 20 tablet; Refills: 0, Product cp Selection Permitted Signatures: Dispatcher [employer] Milan Wolfe PA PA cp Dibbern, Lauren, RN RN ld1 Mikey Cervantes RN RN as6
[2022-05-23 20:15] VITALS: BP 169/72; TEMP 97.1; O2SAT 100
== END 2022-05-23 20:09 | disposition home or self-care (01) ==
LOC: SUPCPDRO 16:07 → ER 16:07
DX: S61.412A Laceration without foreign body of left hand, initial encounter (principal); S61.431A Puncture wound without foreign body of right hand, initial encounter; W54.0XXA Bitten by dog, initial encounter; Z23 Encounter for immunization
CPT/HCPCS: 90471; 99284

== ENCOUNTER 2022-06-27 09:58 | Observation (INO) | payer OTHER, MEDICARE ==
--- OUTSIDE RECORDS SUMMARY | 2022-06-27 10:18 | XMS REPORT | Continuity of Care Document ---
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 E11.9 ity of (ACCU-CHEK 00:00: (Brand [place] GUIDE 00 upon Medical GLUCOSE insurance Branch METER) Misc approval) ACCU-CHEK GUIDE blood sugar 2020-0 Yes [id number] Use BID, [facility] diagnostic 5-19 DX E11.9 ity o f (ACCU-CHEK 00:00: (Brand [employer] GUIDE TEST 00 upon Medical STRIPS) insurance Branch strip approval) rifAXIMin 2020-0 Yes [id number] 550mg Take 1 [facility] 550 mg 5-19 tablet by ity of tablet 00:00: mouth (two) Medical times Branch daily. hydrOXYzine 2020-0 Yes [id number] 50mg Take 1 U nivers 50 mg 5-19 tablet by ity of tablet 00:00: mouth 3 (three) Medical times Branch daily as needed for Itching. lisinopriL 2020-0 Yes [id number] 20mg Take 1 [facility] nivers 20 mg 5-19 tablet by ity of tablet 00:00: mouth daily. Medical Branch spironolact 2020-0 Yes [id number] 25mg Take 1 [facility] one 25 mg 5-19 tablet by ity o f tablet 00:00: mouth (two) Medical times Branch daily. carvediloL 2020-0 Yes [id number] 3.125mg Take 1 [facility] 3.125 mg 5-19 tablet by ity of tablet 00:00: mouth (two) Medical times Branch daily with meals. Pitavastati 2020-0 Yes [id number] 2mg Take 2 mg [facility] n (LIVALO) 5-19 by mouth ity o f 2 mg Tab 00:00: daily. Medical Branch metFORMIN 2020-0 Yes [id number] 500mg Take 1 [facility] 500 mg 5-19 tablet by ity of tablet 00:00: mouth (two) Medical times Branch daily with meals. Blood-Gluco 2020-0 Yes [id number] Use BID, [facility] se Meter 5-19 DX E11.9 ity of (ACCU-CHEK 00:00: (Brand [place] GUIDE 00 upon Medical GLUCOSE insurance Branch METER) Misc approval) ACCU-CHEK GUIDE blood sugar 2020-0 Yes [id number] Use BID, [facility] diagnostic 5-19 DX E11.9 ity o f (ACCU-CHEK 00:00: (Brand [place] GUIDE TEST 00 upon Medical STRIPS) insurance Branch strip approval) rifAXIMin 2020-0 Yes [id number] 550mg Take 1 [facility] 550 mg 5-19 tablet by ity of tablet 00:00: mouth 2 (two) Medical times Branch daily. hydrOXYzine 2020-0 Yes [id number] 50mg Take 1 U nivers 50 mg 5-19 tablet by ity of tablet 00:00: mouth 3 (three) Medical times Branch daily as needed for Itching. lisinopriL 2020-0 Yes [id number] 20mg Take 1 [facility] nivers 20 mg 5-19 tablet by ity of tablet 00:00: mouth daily. Medical Branch spironolact 2020-0 Yes [id number] 25mg Take 1 [facility] one 25 mg 5-19 tablet by ity o f tablet 00:00: mouth 2 (two) Medical times Branch daily. carvediloL 2020-0 Yes [id number] 3.125mg Take 1 [facility] 3.125 mg 5-19 tablet by ity of tablet 00:00: mouth 2 (two) Medical times Branch daily with meals. Pitavastati 2020-0 Yes [id number] 2mg Take 2 mg [facility] n (LIVALO) 5-19 by mouth ity o f 2 mg Tab 00:00: daily. Medical Branch metFORMIN 2020-0 Yes [id number] 500mg Take 1 [facility] 500 mg 5-19 tablet by ity of tablet 00:00: mouth 2 (two) Medical times Branch daily with meals. Blood-Gluco 2020-0 Yes [id number] Use BID, [facility] se Meter 5-19 DX E11.9 ity of (ACCU-CHEK 00:00: (Brand [place] GUIDE 00 upon Medical GLUCOSE insurance Branch METER) Misc approval) ACCU-CHEK GUIDE blood sugar 2020-0 Yes [id number] Use BID, [facility] diagnostic 5-19 DX E11.9 ity o f (ACCU-CHEK 00:00: (Brand [employer] GUIDE TEST 00 upon Medical STRIPS) insurance Branch strip approval) rifAXIMin 0 Yes [id number] 550mg Take 1 [facility] 550 mg 5-19 tablet by ity of tablet 00:00: mouth 2 (two) Medical times Branch daily. hydrOXYzine 0 Yes [id number] 50mg Take 1 U nivers 50 mg 5-19 tablet by ity of tablet 00:00: mouth 3 (three) Medical times Branch daily as needed for Itching. lisinopriL 0 Yes [id number] 20mg Take 1 [facility] nivers 20 mg 5-19 tablet by ity of tablet 00:00: mouth daily. Medical Branch spironolact 0 Yes [id number] 25mg Take 1 [facility] one 25 mg 5-19 tablet by ity o f tablet 00:00: mouth 2 (two) Medical times Branch daily. carvediloL Yes [id number] 3.125mg Take 1 [facility] 3.125 mg 5-19 tablet by ity of tablet 00:00: mouth 2 (two) Medical times Branch daily with meals. Pitavastati Yes [id number] 2mg Take 2 mg [facility] n (LIVALO) 5-19 by mouth ity o f 2 mg Tab 00:00: daily. Medical Branch metFORMIN 0 Yes [id number] 500mg Take 1 [facility] 500 mg 5-19 tablet by ity of tablet 00:00: mouth 2 (two) Medical times Branch daily with meals. Blood-Gluco Yes [id number] Use BID, [facility] se Meter 5-19 DX E11.9 ity of (ACCU-CHEK 00:00: ([facility] GUIDE 00 upon Medical GLUCOSE insurance Branch METER) Misc approval) ACCU-CHEK GUIDE blood sugar 0 Yes [id number] Use BID, [facility] diagnostic 5-19 DX E11.9 ity o f (ACCU-CHEK 00:00: (Brand [employer] GUIDE TEST 00 upon Medical STRIPS) insurance Branch strip approval) furosemide 2020-0 2020- No [id number] 40mg Take 1 [facility] 40 mg 5-19 10-20 tablet by ity of tablet 00:00: 00:00 mouth [place] 00 :00 every Medical morning Branch and evening. pantoprazol 2020- No [id number] 40mg Take 1 [facility] e 40 mg EC 10-14 tablet by ity of tablet 00:00: 00:00 mouth [place] 00 :00 daily. Medical Branch spironolact 2020- No 100mg Q.5D Take [address] [facility] one 4- 04-06 mg [facility] (ALDACTONE) 12:49: 00:00 mouth 2 Me dical 100 MG 47 :00 (two) Center tablet times daily. penicillin 2020- No 500mg Q.[id number] Take [address] [facility] [address] [facility] potassium 4-10 30-06 [id number] mg [facility] (VEETID) 12:48: 00:00 3D [...] St (vitamin 4- 04-06 mg [facility] B-1) 100 MG 12:48: 00:00 mouth Medi jeevan tablet 08 :00 daily. Center azithromyci Yes [id number] 250mg Take 1 [facility] n 3-24 tablet by ity of (ZITHROMAX 00:00: mouth [place] Z-MERCY) 250 00 daily. Medical mg tablet Take 500 Branch mg day 1, then 250 mg days 2 to 5. azithromyci 2020- No [id number] 250mg Take 1 [facility] n 3-24 05-19 tablet by ity of (ZITHROMAX 00:00: 00:00 mouth [place] Z-[facility]CY) 250 00 :00 daily. Medical mg tablet Take 500 Branch mg day 1, then 250 mg days 2 to 5. azithromyci 2020- No [id number] 250mg Take 1 [facility] n 3-24 05-19 tablet by ity of (ZITHROMAX 00:00: 00:00 mouth [place] Z-[facility]CY) 250 00 :00 daily. Medical mg tablet Take 500 Branch mg day 1, then 250 mg days 2 to 5. LISINOPRIL 2021-0 Yes [id number] Take 1 U nivers 20 mg 3-09 tablet by ity of tablet 00:00: mouth once [place] 00 daily Medical Branch LISINOPRIL 2021-0 Yes [id number] Take 1 U nivers 20 mg 3-09 tablet by ity of tablet 00:00: mouth once [place] 00 daily Medical Branch LISINOPRIL 2021-0 Yes [id number] Take 1 [facility] nivers 20 mg 3-09 tablet by ity of tablet 00:00: mouth once [place] 00 daily Medical Branch LISINOPRIL 2021-0 2021- No [id number] Take 1 [facility] 20 mg 3-09 05-19 tablet by ity of tablet 00:00: 00:00 mouth [place] 00 :[place] daily Medical Branch LISINOPRIL 2021-0 2021- No [id number] Take 1 [facility] 20 mg 3-09 05-19 tablet by ity of tablet 00:00: 00:00 mouth [place] 00 :00 daily Medical Branch clobetasoL 2021-0 Yes [id number] Apply to [facility] 0.05 % 2-09 area(s) 2 ity of cream 00:00: (two) [place] 00 times Medical daily. Branch clobetasoL 1-0 Yes [id number] Apply to [facility] 0.05 % 2-09 area(s) 2 ity of cream 00:00: (two) [place] 00 times Medical daily. Branch clobetasoL 1-0 Yes [id number] Apply to [facility] 0.05 % 2-09 area(s) 2 ity of cream 00:00: (two) [place] 00 times Medical daily. Branch clobetasoL 2021-0 Yes [id number] Apply to [facility] 0.05 % 2-09 area(s) 2 ity of cream 00:00: (two) [place] 00 times Medical daily. Branch clobetasoL 2021-0 Yes [id number] Apply to [facility] 0.05 % 2-09 area(s) 2 ity of cream 00:00: (two) [place] 00 times Medical daily. Branch clobetasoL 2021-0 Yes [id number] Apply to Univers 0.05 % 2-09 area(s) 2 ity of cream 00:00: (two) [place] 00 times Medical daily. Branch clobetasoL 2021-0 Yes [id number] Apply to [facility] 0.05 % 2-09 area(s) 2 ity of cream 00:00: (two) [place] 00 times Medical daily. Branch clobetasoL 2021-0 Yes [id number] Apply to Univers 0.05 % 2-09 area(s) 2 ity of cream 00:00: (two) [place] 00 times Medical daily. Branch clobetasoL 2021-0 Yes [id number] Apply to Univers 0.05 % 2-09 area(s) 2 ity of cream 00:00: (two) [place] 00 times Medical daily. Branch clobetasoL 2021-0 Yes [id number] Apply to Univers 0.05 % 2-09 area(s) 2 ity of cream 00:00: (two) [place] 00 times Medical daily. Branch clobetasoL 2021-0 Yes [id number] Apply to Univers 0.05 % 2-09 area(s) 2 ity of cream 00:00: (two) [place] 00 times Medical daily. Branch clobetasoL 2021-0 Yes [id number] Apply to Univers 0.05 % 2-09 area(s) 2 ity of cream 00:00: (two) [place] 00 times Medical daily. Branch clobetasoL 1-0 Yes [id number] Apply to Univers 0.05 % 2-09 area(s) 2 ity of cream 00:00: (two) [place] 00 times Medical daily. Branch clobetasoL 1-0 Yes [id number] Apply to Univers 0.05 % 2-09 area(s) 2 ity of cream 00:00: (two) [place] 00 times Medical daily. [place] azithromyci 2020- 202- No 500mg 500 mg, IV Univers n [...] ity of 1,000 mg in 03:45: 03:27 [place], [place] NaCl 0.9% 00 :00 ONCE, 1 Medical (NS) 50 mL dose, Alyssa Bran ch MINI-BAG 06/25/20 at 2145, 50 mL
Reas on for Anti-Infec tive: Documented Infection< br>Documen lisa Infection Site: Respirator y
Durat ion of Therapy: 7 days foLIC acid 2020-0 Yes [id number] 1mg Take 1 [facility] 1 mg tablet 1-28 tablet by ity of 00:00: mouth [place] 00 daily. [facility] Branch foLIC acid 2020-0 Yes [id number] 1mg Take 1 [facility] 1 mg tablet 1-28 tablet by ity of 00:00: mouth [place] 00 daily. [facility] Branch foLIC acid 2020-0 Yes [id number] 1mg Take 1 [facility] 1 mg tablet 1-28 tablet by ity of 00:00: mouth [place] 00 daily. [facility] Branch foLIC acid 2020-0 Yes [id number] 1mg Take 1 [facility] 1 mg tablet 1-28 tablet by ity of 00:00: mouth [place] 00 daily. [facility] Branch foLIC acid 2020-0 Yes [id number] 1mg Take 1 [facility] 1 mg tablet 1-28 tablet by ity of 00:00: mouth [place] 00 daily. [facility] foLIC acid 2020-0 Yes [id number] 1mg Take 1 [facility] 1 mg tablet 1-28 tablet by ity of 00:00: mouth [place] 00 daily. [facility] Branch foLIC acid 2020-0 Yes [id number] 1mg Take 1 [facility] 1 mg tablet 1-28 tablet by ity of 00:00: mouth [place] 00 daily. [facility] Branch foLIC acid 2020-0 Yes [id number] 1mg Take 1 [facility] 1 mg tablet 1-28 tablet by ity of 00:00: mouth [place] 00 daily. [facility] Branch foLIC acid 2020-0 Yes [id number] 1mg Take 1 [facility] 1 mg tablet 1-28 tablet by ity of 00:00: mouth [place] 00 daily. [facility] foLIC acid 2020-0 Yes [id number] 1mg Take 1 [facility] 1 mg tablet 1-28 tablet by ity of 00:00: mouth [place] 00 daily. [facility] foLIC acid 2020-0 Yes [id number] 1mg Take 1 [facility] 1 mg tablet 1-28 tablet by ity of 00:00: mouth [place] 00 daily. Medical Branch foLIC acid 2020-0 Yes [id number] 1mg Take 1 [facility] 1 mg tablet 1-28 tablet by ity of 00:00: mouth [place] 00 daily. Medical Branch foLIC acid 2020-0 Yes [id number] 1mg Take 1 [facility] 1 mg tablet 1-28 tablet by ity of 00:00: mouth [place] 00 daily. Medical Branch foLIC acid 2020-0 Yes [id number] 1mg Take 1 [facility] 1 mg tablet 1-28 tablet by ity of 00:00: mouth [place] 00 daily. Medical Branch foLIC acid 2020-0 Yes [id number] 1mg Take 1 [facility] 1 mg tablet 1-28 tablet by ity of 00:00: mouth [place] 00 daily. Medical Branch amoxicillin 0 202- No [id number] 500mg Take 1 [facility] -pot 1-28 02-05 [...] 2 (two) times daily. furosemide 2018-05 Yes [id number] 40mg Take 1 U nivers 40 mg 2-20 tablet by ity of tablet 00:00: mouth [place] 00 every Medical morning Branch and evening. metFORMIN 2018-05 Yes [id number] 500mg Take 1 [facility] 500 mg 2-20 tablet by ity of tablet 00:00: mouth 2 [place] 00 (two) Medical times Branch daily with meals. carvedilol 2018-05 Yes [id number] 3.125mg Take 1 [facility] 3.125 mg 2-20 tablet by ity of tablet 00:00: mouth 2 [place] 00 (two) Medical times Branch daily with meals. lisinopril 2018-05 Yes [id number] 20mg Take 1 U nivers 20 mg 2-20 tablet by ity of tablet 00:00: mouth [place] 00 daily. Medical Branch spironolact 2018-05 Yes [id number] 25mg Take 1 [facility] one 25 mg 2-20 tablet by ity o f tablet 00:00: mouth 2 [place] 00 (two) Medical times Branch daily. rifAXIMin 2018-05 Yes [id number] 550mg Take 1 [facility] 550 mg 2-20 tablet by ity of tablet 00:00: mouth 2 [place] 00 (two) Medical times Branch daily. albuterol 2018-05 Yes [id number] 2{puff} Inhale 2 [facility] 90 2-20 Puffs ity of mcg/actuati 00:00: every 6 [place] on inhaler 00 (six) Medical hours as Branch needed for Wheezing or Shortness of Breath. Pitavastati 2018-05 Yes [id number] 2mg Take 2 mg [facility] n (LIVALO) 2-20 by mouth ity o f 2 mg Tab 00:00: daily. [place] 00 Medical Branch Lancets 2018-05 Yes [id number] Use BID, U nivers Misc 2-20 DX E11.9 ity of 00:00: ([facility] 00 upon Medical insurance Branch approval) blood sugar 2018-05 Yes [id number] Use BID, [facility] diagnostic 2-20 DX E11.9 ity o f (ACCU-CHEK 00:00: ([facility] GUIDE) 00 upon Medical strip insurance Branch approval) lactulose 2018-05 Yes [id number] 15mL Take 15 mL [facility] 10 gram/15 2-20 by mouth 3 ity of mL solution 00:00: (three) [place] 00 times Medical daily. Branch hydrOXYzine 2018-05 Yes [id number] 50mg Take 1 U nivers 50 mg 2-20 tablet by ity of tablet 00:00: mouth 3 [place] 00 (three) Medical times Branch daily as needed for Itching. calcipotrie 2018-05 Yes [id number] Apply to Univers ne 0.005 % 2-20 area(s) 2 ity of cream 00:00: (two) [place] 00 times Medical daily. Branch clobetasol 2018-05 Yes [id number] Apply to Univers 0.05 % 2-20 area(s) 2 ity of cream 00:00: (two) [place] 00 times Medical daily. Branch foLIC acid 2018-05 Yes [id number] 1mg Take 1 [facility] 1 mg tablet 2-20 tablet by ity of 00:00: mouth 00 daily. Medical Branch pantoprazol 2018-05 Yes [id number] 40mg Take 1 [facility] e 40 mg EC 2-20 tablet by ity of tablet 00:00: mouth [place] 00 daily. Medical Branch triamcinolo 2018-05 Yes [id number] Apply to Univers ne 2-20 affected ity of acetonide 00:00: area(s) 2 [place] 0.1 % cream 00 (two) Medical times Branch daily. furosemide 2018-05 Yes [id number] 40mg Take 1 U nivers 40 mg 2-20 tablet by ity of tablet 00:00: mouth [place] 00 every Medical morning Branch and evening. metFORMIN 2018-05 Yes [id number] 500mg Take 1 [facility] 500 mg 2-20 tablet by ity of tablet 00:00: mouth 2 (two) Medical times Branch daily with meals. carvedilol 2018-05 Yes [id number] 3.125mg Take 1 [facility] 3.125 mg 2-20 tablet by ity of tablet 00:00: mouth 2 (two) Medical times Branch daily with meals. lisinopril 2018-05 Yes [id number] 20mg Take 1 U nivers 20 mg 2-20 tablet by ity of tablet 00:00: mouth daily. Medical Branch spironolact 2018-05 Yes [id number] 25mg Take 1 [facility] one 25 mg 2-20 tablet by ity o f tablet 00:00: mouth 2 (two) Medical times Branch daily. rifAXIMin 2018-05 Yes [id number] 550mg Take 1 [facility] 550 mg 2-20 tablet by ity of tablet 00:00: mouth 2 (two) Medical times Branch daily. albuterol 2018-05 Yes [id number] 2{puff} Inhale 2 [facility] 90 2-20 Puffs ity of mcg/actuati 00:00: every 6 [place] on inhaler 00 (six) Medical hours as Branch needed for Wheezing or Shortness of Breath. Pitavastati 2018-05 Yes [id number] 2mg Take 2 mg [facility] n (LIVALO) 2-20 by mouth ity o f 2 mg Tab 00:00: daily. [place] 00 Medical Branch Lancets 2018-05 Yes [id number] Use BID, U nivers Misc 2-20 DX E11.9 ity of 00:00: ([facility] 00 upon Medical insurance Branch approval) blood sugar 2018-05 Yes [id number] Use BID, [facility] diagnostic 2-20 DX E11.9 ity o f (ACCU-CHEK 00:00: ([facility] GUIDE) [address] [place] [address] Medical strip insurance Branch approval) lactulose 2018-05 Yes [id number] 15mL Take 15 mL [facility] 10 gram/15 2-20 by mouth 3 ity of mL solution 00:00: (three) [place] 00 times Medical daily. Branch hydrOXYzine 2018-05 Yes [id number] 50mg Take 1 U nivers 50 mg 2-20 tablet by ity of tablet 00:00: mouth 3 00 (three) Medical times Branch daily as needed for Itching. calcipotrie 2018-05 Yes [id number] Apply to Univers ne 0.005 % 2-20 area(s) 2 ity of cream 00:00: (two) [place] 00 times Medical daily. Branch clobetasol 2018-05 Yes [id number] Apply to Univers 0.05 % 2-20 area(s) 2 ity of cream 00:00: (two) [place] 00 times Medical daily. Branch foLIC acid 2018-05 Yes [id number] 1mg Take 1 [facility] 1 mg tablet 2-20 tablet by ity of 00:00: mouth [place] 00 daily. Medical Branch pantoprazol 2018-05 Yes [id number] 40mg Take 1 [facility] e 40 mg EC 2-20 tablet by ity of tablet 00:00: mouth [place] 00 daily. Medical Branch triamcinolo 2018-05 Yes [id number] Apply to Univers ne 2-20 affected ity of acetonide 00:00: area(s) 2 [place] 0.1 % cream 00 (two) Medical times Branch daily. furosemide 2018-05 Yes [id number] 40mg Take 1 U nivers 40 mg 2-20 tablet by ity of tablet 00:00: mouth 00 every Medical morning Branch and evening. metFORMIN 2018-05 Yes [id number] 500mg Take 1 [facility] 500 mg 2-20 tablet by ity of tablet 00:00: mouth 2 (two) Medical times Branch daily with meals. carvedilol 2018-05 Yes [id number] 3.125mg Take 1 [facility] 3.125 mg 2-20 tablet by ity of tablet 00:00: mouth 2 (two) Medical times Branch daily with meals. lisinopril 2018-05 Yes [id number] 20mg Take 1 U nivers 20 mg 2-20 tablet by ity of tablet 00:00: mouth [place] 00 daily. Medical Branch spironolact 2018-05 Yes [id number] 25mg Take 1 [facility] one 25 mg 2-20 tablet by ity o f tablet 00:00: mouth 2 00 (two) Medical times Branch daily. rifAXIMin 2018-05 Yes [id number] 550mg Take 1 [facility] 550 mg 2-20 tablet by ity of tablet 00:00: mouth 2 00 (two) Medical times Branch daily. albuterol 2018-05 Yes [id number] 2{puff} Inhale 2 [facility] 90 2-20 Puffs ity of mcg/actuati 00:00: every 6 [place] on inhaler 00 (six) Medical hours as Branch needed for Wheezing or Shortness of Breath. Pitavastati 2018-05 Yes [id number] 2mg Take 2 mg [facility] n (LIVALO) 2-20 by mouth ity o f 2 mg Tab 00:00: daily. [place] 00 Medical Branch Lancets 2018-05 Yes [id number] Use BID, U nivers Misc 2-20 DX E11.9 ity of 00:00: ([facility] [place] 00 upon Medical insurance Branch approval) blood sugar 2018-05 Yes [id number] Use BID, Univers diagnostic 2-20 DX E11.9 ity o f (ACCU-CHEK 00:00: ([facility] GUIDE) 00 upon Medical strip insurance Branch approval) lactulose 2018-05 Yes [id number] 15mL Take 15 mL [facility] 10 gram/15 2-20 by mouth 3 ity of mL solution 00:00: (three) [place] 00 times Medical daily. Branch hydrOXYzine 2018-05 Yes [id number] 50mg Take 1 U nivers 50 mg 2-20 tablet by ity of tablet 00:00: mouth 3 [place] 00 (three) Medical times Branch daily as needed for Itching. calcipotrie 2018- Yes [id number] Apply to Univers ne 0.005 % 2-20 area(s) 2 ity of cream 00:00: (two) [place] 00 times Medical daily. Branch clobetasol 2018-05 Yes [id number] Apply to Univers 0.05 % 2-20 area(s) 2 ity of cream 00:00: (two) [place] 00 times Medical daily. Branch pantoprazol 2018-05 Yes [id number] 40mg Take 1 [facility] e 40 mg EC 2-20 tablet by ity of tablet 00:00: mouth [place] 00 daily. Medical Branch triamcinolo 2018-05 Yes [id number] Apply to Univers ne 2-20 affected ity of acetonide 00:00: area(s) 2 [place] 0.1 % cream 00 (two) Medical times Branch daily. furosemide 2018- Yes [id number] 40mg Take 1 U nivers 40 mg 2-20 tablet by ity of tablet 00:00: mouth [place] 00 every Medical morning Branch and evening. metFORMIN 2018- Yes [id number] 500mg Take 1 [facility] 500 mg 2-20 tablet by ity of tablet 00:00: mouth 2 (two) Medical times Branch daily with meals. carvedilol 2018-05 Yes [id number] 3.125mg Take 1 [facility] 3.125 mg 2-20 tablet by ity of tablet 00:00: mouth 2 (two) Medical times Branch daily with meals. lisinopril 2018-05 Yes [id number] 20mg Take 1 U nivers 20 mg 2-20 tablet by ity of tablet 00:00: mouth 00 daily. Medical Branch spironolact 2018-05 Yes [id number] 25mg Take 1 [facility] one 25 mg 2-20 tablet by ity o f tablet 00:00: mouth 2 (two) Medical times Branch daily. rifAXIMin 2018-05 Yes [id number] 550mg Take 1 [facility] 550 mg 2-20 tablet by ity of tablet 00:00: mouth 2 [place] (two) Medical times Branch daily. albuterol 2018-05 Yes [id number] 2{puff} Inhale 2 [facility] 90 2-20 Puffs ity of mcg/actuati 00:00: every 6 [place] on inhaler 00 (six) Medical hours as Branch needed for Wheezing or Shortness of Breath. Pitavastati 2018-05 Yes [id number] 2mg Take 2 mg [facility] n (LIVALO) 2-20 by mouth ity o f 2 mg Tab 00:00: daily. [place] 00 Medical Branch Lancets 2018-05 Yes [id number] Use BID, U nivers Misc 2-20 DX E11.9 ity of 00:00: ([facility] 00 upon Medical insurance Branch approval) blood sugar 2018-05 Yes [id number] Use BID, Univers diagnostic 2-20 DX E11.9 ity o f (ACCU-CHEK 00:00: ([facility] GUIDE) [address] [place] [address] Medical strip insurance Branch approval) lactulose 2018-05 Yes [id number] 15mL Take 15 mL [facility] 10 gram/15 2-20 by mouth 3 ity of mL solution 00:00: (three) [place] 00 times Medical daily. Branch hydrOXYzine 2018-05 Yes [id number] 50mg Take 1 U nivers 50 mg 2-20 tablet by ity of tablet 00:00: mouth 3 00 (three) Medical times Branch daily as needed for Itching. calcipotrie 2018-05 Yes [id number] Apply to Univers ne 0.005 % 2-20 area(s) 2 ity of cream 00:00: (two) [place] 00 times Medical daily. Branch clobetasol 2018-05 Yes [id number] Apply to Univers 0.05 % 2-20 area(s) 2 ity of cream 00:00: (two) [place] 00 times Medical daily. Branch pantoprazol 2018-05 Yes [id number] 40mg Take 1 [facility] e 40 mg EC 2-20 tablet by ity of tablet 00:00: mouth [place] 00 daily. Medical Branch triamcinolo 2018-05 Yes [id number] Apply to Univers ne 2-20 affected ity of acetonide 00:00: area(s) 2 [place] 0.1 % cream 00 (two) Medical times Branch daily. albuterol 2018-05 Yes [id number] 2{puff} Inhale 2 [facility] 90 2-20 Puffs ity of mcg/actuati 00:00: every 6 [place] on inhaler 00 (six) Medical hours as Branch needed for Wheezing or Shortness of Breath. Lancets 2018-05 Yes [id number] Use BID, U nivers Misc 2-20 DX E11.9 ity of 00:00: ([facility] [place] 00 upon Medical insurance Branch approval) lactulose 2018-05 Yes [id number] 15mL Take 15 mL [facility] 10 gram/15 2-20 by mouth 3 ity of mL solution 00:00: (three) [place] 00 times Medical daily. Branch calcipotrie 2018-05 Yes [id number] Apply to [facility] ne 0.005 % 2-20 area(s) 2 ity of cream 00:00: (two) [place] 00 times Medical daily. Branch triamcinolo 2018-05 Yes [id number] Apply to [facility] ne 2-20 affected ity of acetonide 00:00: area(s) 2 [place] 0.1 % cream 00 (two) Medical times Branch daily. furosemide 2018-05 Yes [id number] 40mg Take 1 U nivers 40 mg 2-20 tablet by ity of tablet 00:00: mouth [place] 00 every Medical morning Branch and evening. metFORMIN 2018-05 Yes [id number] 500mg Take 1 [facility] 500 mg 2-20 tablet by ity of tablet 00:00: mouth 2 [place] 00 (two) Medical times Branch daily with meals. carvedilol 2018-05 Yes [id number] 3.125mg Take 1 [facility] 3.125 mg 2-20 tablet by ity of tablet 00:00: mouth 2 [place] (two) Medical times Branch daily with meals. spironolact 2018-05 Yes [id number] 25mg Take 1 [facility] one 25 mg 2-20 tablet by ity o f tablet 00:00: mouth 2 [place] (two) Medical times Branch daily. rifAXIMin 2018-05 Yes [id number] 550mg Take 1 [facility] 550 mg 2-20 tablet by ity of tablet 00:00: mouth 2 [place] (two) Medical times Branch daily. albuterol 2018-05 Yes [id number] 2{puff} Inhale 2 [facility] 90 2-20 Puffs ity of mcg/actuati 00:00: every 6 [place] on inhaler 00 (six) Medical hours as Branch needed for Wheezing or Shortness of Breath. Pitavastati 2018-05 Yes [id number] 2mg Take 2 mg [facility] n (LIVALO) 2-20 by mouth ity o f 2 mg Tab 00:00: daily. [place] [address] Medical Branch Lancets 2018-05 Yes [id number] Use BID, U nivers Misc 2-20 DX E11.9 ity of 00:00: ([facility] 00 upon Medical insurance Branch approval) blood sugar 2018-05 Yes [id number] Use BID, [facility] diagnostic 2-20 DX E11.9 ity o f (ACCU-CHEK 00:00: ([facility] GUIDE) [address] [place] [address] Medical strip insurance Branch approval) lactulose 2018-05 Yes [id number] 15mL Take 15 mL [facility] 10 gram/15 2-20 by mouth 3 ity of mL solution 00:00: (three) [place] 00 times Medical daily. Branch hydrOXYzine 2018-05 Yes [id number] 50mg Take 1 U nivers 50 mg 2-20 tablet by ity of tablet 00:00: mouth 3 [place] 00 (three) Medical times Branch daily as needed for Itching. calcipotrie 2018-05 Yes [id number] Apply to Univers ne 0.005 % 2-20 area(s) 2 ity of cream 00:00: (two) [place] 00 times Medical daily. Branch pantoprazol 2018-05 Yes [id number] 40mg Take 1 [facility] e 40 mg EC 2-20 tablet by ity of tablet 00:00: mouth daily. Medical Branch triamcinolo 2018-05 Yes [id number] Apply to [facility] ne 2-20 affected ity of acetonide 00:00: area(s) 2 [place] 0.1 % cream (two) Medical times Branch daily. furosemide 2018-05 Yes [id number] 40mg Take 1 [facility] n[facility] 40 mg 2-20 tablet by ity of tablet 00:00: mouth 00 every Medical morning Branch and evening. metFORMIN 2018-05 Yes [id number] 500mg Take 1 [facility] 500 mg 2-20 tablet by ity of tablet 00:00: mouth (two) Medical times Branch daily with meals. carvedilol 2018-05 Yes [id number] 3.125mg Take 1 [facility] 3.125 mg 2-20 tablet by ity of tablet 00:00: mouth (two) Medical times Branch daily with meals. spironolact 2018-05 Yes [id number] 25mg Take 1 [facility] one 25 mg 2-20 tablet by ity o f tablet 00:00: mouth [place] (two) Medical times Branch daily. rifAXIMin 2018-05 Yes [id number] 550mg Take 1 [facility] 550 mg 2-20 tablet by ity of tablet 00:00: mouth [place] (two) Medical times Branch daily. albuterol 2018-05 Yes [id number] 2{puff} Inhale 2 [facility] 90 2-20 Puffs ity of mcg/actuati 00:00: every 6 [place] on inhaler 00 (six) Medical hours as Branch needed for Wheezing or Shortness of Breath. Pitavastati 2018-05 Yes [id number] 2mg Take 2 mg [facility] n (LIVALO) 2-20 by mouth ity o f 2 mg Tab 00:00: daily. [place] [facility] Lancets 2018-05 Yes [id number] Use BID, U nivers Misc 2-20 DX E11.9 ity of 00:00: (Brand [place] 00 upon Medical insurance Branch approval) blood sugar 2018-05 Yes [id number] Use BID, [facility] diagnostic 2-20 DX E11.9 ity o f (ACCU-CHEK 00:00: ([facility] GUIDE) [address] [place] [address] Medical strip insurance Branch approval) lactulose 2018-05 Yes [id number] 15mL Take 15 mL [facility] 10 gram/15 2-20 by mouth 3 ity of mL solution 00:00: (three) [place] 00 times Medical daily. Branch hydrOXYzine 2018-05 Yes [id number] 50mg Take 1 [facility] nivers 50 mg 2-20 tablet by ity of tablet 00:00: mouth 3 [place] 00 (three) Medical times Branch daily as needed for Itching. calcipotrie 2018-05 Yes [id number] Apply to [facility] ne 0.005 % 2-20 area(s) 2 ity of cream 00:00: (two) [place] 00 times Medical daily. Branch pantoprazol 2018-05 Yes [id number] 40mg Take 1 [facility] e 40 mg EC 2-20 tablet by ity of tablet 00:00: mouth [place] 00 daily. Medical Branch triamcinolo 2018-05 Yes [id number] Apply to [facility] ne 2-20 affected ity of acetonide 00:00: area(s) 2 [place] 0.1 % cream 00 (two) Medical times Branch daily. furosemide 2018-05 Yes [id number] 40mg Take 1 [facility] nivers 40 mg 2-20 tablet by ity of tablet 00:00: mouth [place] 00 every Medical morning Branch and evening. metFORMIN 2018-05 Yes [id number] 500mg Take 1 [facility] 500 mg 2-20 tablet by ity of tablet 00:00: mouth 2 (two) Medical times Branch daily with meals. carvedilol 2018-05 Yes [id number] 3.125mg Take 1 [facility] 3.125 mg 2-20 tablet by ity of tablet 00:00: mouth 2 (two) Medical times Branch daily with meals. spironolact 2018-05 Yes [id number] 25mg Take 1 [facility] one 25 mg 2-20 tablet by ity o f tablet 00:00: mouth 2 (two) Medical times Branch daily. rifAXIMin 2018-05 Yes [id number] 550mg Take 1 [facility] 550 mg 2-20 tablet by ity of tablet 00:00: mouth 2 (two) Medical times Branch daily. albuterol 2018-05 Yes [id number] 2{puff} Inhale 2 [facility] 90 2-20 Puffs ity of mcg/actuati 00:00: every 6 [place] on inhaler 00 (six) Medical hours as Branch needed for Wheezing or Shortness of Breath. Pitavastati 2018-05 Yes [id number] 2mg Take 2 mg [facility] n (LIVALO) 2-20 by mouth ity o f 2 mg Tab 00:00: daily. [place] 00 Medical Branch Lancets 2018-05 Yes [id number] Use BID, U nivers Misc 2-20 DX E11.9 ity of 00:00: ([facility] 00 upon Medical insurance Branch approval) blood sugar 2018-05 Yes [id number] Use BID, [facility] diagnostic 2-20 DX E11.9 ity o f (ACCU-CHEK 00:00: ([facility] GUIDE) 00 upon Medical strip insurance Branch approval) lactulose 2018-05 Yes [id number] 15mL Take 15 mL [facility] 10 gram/15 2-20 by mouth 3 ity of mL solution 00:00: (three) [place] 00 times Medical daily. Branch hydrOXYzine 2018-05 Yes [id number] 50mg Take 1 U nivers 50 mg 2-20 tablet by ity of tablet 00:00: mouth 3 [place] 00 (three) Medical times Branch daily as needed for Itching. calcipotrie 2018-05 Yes [id number] Apply to [facility] ne 0.005 % 2-20 area(s) 2 ity of cream 00:00: (two) [place] 00 times Medical daily. Branch pantoprazol 2018-05 Yes [id number] 40mg Take 1 [facility] e 40 mg EC 2-20 tablet by ity of tablet 00:00: mouth [place] 00 daily. Medical Branch triamcinolo 2018-05 Yes [id number] Apply to [facility] ne 2-20 affected ity of acetonide 00:00: area(s) 2 [place] 0.1 % cream 00 (two) Medical times Branch daily. albuterol 2018-05 Yes [id number] 2{puff} Inhale 2 [facility] 90 2-20 Puffs ity of mcg/actuati 00:00: every 6 [place] on inhaler 00 (six) Medical hours as Branch needed for Wheezing or Shortness of Breath. Lancets 2018-05 Yes [id number] Use BID, U nivers Misc 2-20 DX E11.9 ity of 00:00: ([facility] 00 upon Medical insurance Branch approval) lactulose 2018-05 Yes [id number] 15mL Take 15 mL [facility] 10 gram/15 2-20 by mouth 3 ity of mL solution 00:00: (three) [place] 00 times Medical daily. Branch calcipotrie 2018-05 Yes [id number] Apply to [facility] ne 0.005 % 2-20 area(s) 2 ity of cream 00:00: (two) [place] 00 times Medical daily. Branch triamcinolo 2018-05 Yes [id number] Apply to [facility] ne 2-20 affected ity of acetonide 00:00: area(s) 2 [place] 0.1 % cream 00 (two) Medical times Branch daily. albuterol 2018-05 Yes [id number] 2{puff} Inhale 2 [facility] 90 2-20 Puffs ity of mcg/actuati 00:00: every 6 [place] on inhaler 00 (six) Medical hours as Branch needed for Wheezing or Shortness of Breath. Lancets 2018-05 Yes [id number] Use BID, U nivers Misc 2-20 DX E11.9 ity of 00:00: (Brand [address] Branch approval) lactulose 2018-05 Yes [id number] 15mL Take 15 mL [facility] 10 gram/15 2-20 by mouth 3 ity of mL solution 00:00: (three) [place] 00 times Medical daily. Branch calcipotrie 2018-05 Yes [id number] Apply to [facility] ne 0.005 % 2-20 area(s) 2 ity of cream 00:00: (two) [place] 00 times Medical daily. Branch triamcinolo 2018-05 Yes [id number] Apply to [facility] ne 2-20 affected ity of acetonide 00:00: area(s) 2 [place] 0.1 % cream 00 (two) Medical times Branch daily. albuterol 2018-05 Yes [id number] 2{puff} Inhale 2 [facility] 90 2-20 Puffs ity of mcg/actuati 00:00: every 6 [place] on inhaler 00 (six) Medical hours as Branch needed for Wheezing or Shortness of Breath. Lancets 2018-05 Yes [id number] Use BID, U nivers Misc 2-20 DX E11.9 ity of 00:00: (Brand [address] insurance Branch approval) lactulose 2018-05 Yes [id number] 15mL Take 15 mL [facility] 10 gram/15 2-20 by mouth 3 ity of mL solution 00:00: (three) [place] 00 times Medical daily. Branch calcipotrie 2018-05 Yes [id number] Apply to [facility] ne 0.005 % 2-20 area(s) 2 ity of cream 00:00: (two) [place] 00 times Medical daily. Branch triamcinolo 2018-05 Yes [id number] Apply to [facility] ne 2-20 affected ity of acetonide 00:00: area(s) 2 [place] 0.1 % cream 00 (two) Medical times Branch daily. albuterol 2018-05 Yes [id number] 2{puff} Inhale 2 [facility] 90 2-20 Puffs ity of mcg/actuati 00:00: every 6 [place] on inhaler 00 (six) Medical hours as Branch needed for Wheezing or Shortness of Breath. Lancets 2018-05 Yes [id number] Use BID, U nivers Misc 2-20 DX E11.9 ity of 00:00: (Brand [address] Medical insurance Branch approval) lactulose 2018-05 Yes [id number] 15mL Take 15 mL [facility] 10 gram/15 2-20 by mouth 3 ity of mL solution 00:00: (three) [place] 00 times Medical daily. Branch calcipotrie 2018-05 Yes [id number] Apply to [facility] ne 0.005 % 2-20 area(s) 2 ity of cream 00:00: (two) [place] 00 times Medical daily. Branch triamcinolo 2018-05 Yes [id number] Apply to [facility] ne 2-20 affected ity of acetonide 00:00: area(s) 2 [place] 0.1 % cream 00 (two) Medical times Branch daily. albuterol 2018-05 Yes [id number] 2{puff} Inhale 2 [facility] 90 2-20 Puffs ity of mcg/actuati 00:00: every 6 [place] on inhaler 00 (six) Medical hours as Branch needed for Wheezing or Shortness of Breath. Lancets 2018-05 Yes [id number] Use BID, U nivers Misc 2-20 DX E11.9 ity of 00:00: (Brand [address] Medical insurance Branch approval) lactulose 2018-05 Yes [id number] 15mL Take 15 mL [facility] 10 gram/15 2-20 by mouth 3 ity of mL solution 00:00: (three) [place] 00 times Medical daily. Branch calcipotrie 2018-05 Yes [id number] Apply to [facility] ne 0.005 % 2-20 area(s) 2 ity of cream 00:00: (two) [place] 00 times Medical daily. Branch triamcinolo 2018-05 Yes [id number] Apply to [facility] ne 2-20 affected ity of acetonide 00:00: area(s) 2 [place] 0.1 % cream 00 (two) Medical times Branch daily. albuterol 2018-05 Yes [id number] 2{puff} Inhale 2 [facility] 90 2-20 Puffs ity of mcg/actuati 00:00: every 6 [place] on inhaler 00 (six) Medical hours as Branch needed for Wheezing or Shortness of Breath. Lancets 2018-05 Yes [id number] Use BID, U nivers Misc 2-20 DX E11.9 ity of 00:00: (Brand [address] insurance Branch approval) lactulose 2018-05 Yes [id number] 15mL Take 15 mL [facility] 10 gram/15 2-20 by mouth 3 ity of mL solution 00:00: (three) [place] 00 times Medical daily. Branch calcipotrie 2018-05 Yes [id number] Apply to [facility] ne 0.005 % 2-20 area(s) 2 ity of cream 00:00: (two) [place] 00 times Medical daily. Branch triamcinolo 2018-05 Yes [id number] Apply to [facility] ne 2-20 affected ity of acetonide 00:00: area(s) 2 [place] 0.1 % cream 00 (two) Medical times Branch daily. albuterol 2018-05 Yes [id number] 2{puff} Inhale 2 [facility] 90 2-20 Puffs ity of mcg/actuati 00:00: every 6 [place] on inhaler 00 (six) Medical hours as Branch needed for Wheezing or Shortness of Breath. Lancets 2018-05 Yes [id number] Use BID, U nivers Misc 2-20 DX E11.9 ity of 00:00: (Brand [address] insurance Branch approval) lactulose 2018-05 Yes [id number] 15mL Take 15 mL [facility] 10 gram/15 2-20 by mouth 3 ity of mL solution 00:00: (three) [place] 00 times Medical daily. Branch calcipotrie 2018-05 Yes [id number] Apply to [facility] ne 0.005 % 2-20 area(s) 2 ity of cream 00:00: (two) [place] 00 times Medical daily. Branch triamcinolo 2018-05 Yes [id number] Apply to [facility] ne 2-20 affected ity of acetonide 00:00: area(s) 2 [place] 0.1 % cream 00 (two) Medical times Branch daily. albuterol 2018-05 Yes [id number] 2{puff} Inhale 2 [facility] 90 2-20 Puffs ity of mcg/actuati 00:00: every 6 [place] on inhaler 00 (six) Medical hours as Branch needed for Wheezing or Shortness of Breath. Lancets 2018-05 Yes [id number] Use BID, U nivers Misc 2-20 DX E11.9 ity of 00:00: (Brand [address] Medical insurance Branch approval) lactulose 2018-05 Yes [id number] 15mL Take 15 mL [facility] 10 gram/15 2-20 by mouth 3 ity of mL solution 00:00: (three) [place] 00 times Medical daily. Branch calcipotrie 2018-05 Yes [id number] Apply to [facility] ne 0.005 % 2-20 area(s) 2 ity of cream 00:00: (two) [place] 00 times Medical daily. Branch triamcinolo 2018-05 Yes [id number] Apply to [facility] ne 2-20 affected ity of acetonide 00:00: area(s) 2 [place] 0.1 % cream 00 (two) Medical times Branch daily. albuterol 2018-05 Yes [id number] 2{puff} Inhale 2 [facility] 90 2-20 Puffs ity of mcg/actuati 00:00: every 6 [place] as on inhaler 00 (six) Medical hours as Branch needed for Wheezing or Shortness of Breath. Lancets 2018-05 Yes [id number] Use BID, U nivers Misc 2-20 DX E11.9 ity of 00:00: (Brand [address] Medical insurance Branch approval) lactulose 2018-05 Yes [id number] 15mL Take 15 mL [facility] 10 gram/15 2-20 by mouth 3 ity of mL solution 00:00: (three) [place] 00 times Medical daily. Branch calcipotrie 2018-05 Yes [id number] Apply to [facility] ne 0.005 % 2-20 area(s) 2 ity of cream 00:00: (two) [place] 00 times Medical daily. Branch triamcinolo 2018-05 Yes [id number] Apply to [facility] ne 2-20 affected ity of acetonide 00:00: area(s) 2 [place] 0.1 % cream 00 (two) Medical times Branch daily. albuterol 2018-05 Yes [id number] 2{puff} Inhale 2 [facility] 90 2-20 Puffs ity of mcg/actuati 00:00: every 6 [place] on inhaler 00 (six) Medical hours as Branch needed for Wheezing or Shortness of Breath. Lancets 2018-05 Yes [id number] Use BID, U nivers Misc 2-20 DX E11.9 ity of 00:00: (Brand [place] 00 upon Medical insurance Branch approval) lactulose 2018-05 Yes [id number] 15mL Take 15 mL [facility] 10 gram/15 2-20 by mouth 3 ity of mL solution 00:00: (three) [place] 00 times Medical daily. Branch calcipotrie 2018-05 Yes [id number] Apply to [facility] ne 0.005 % 2-20 area(s) 2 ity of cream 00:00: (two) [place] 00 times Medical daily. Branch triamcinolo 2018-05 Yes [id number] Apply to [facility] ne 2-20 affected ity of acetonide 00:00: area(s) 2 [place] 0.1 % cream 00 (two) Medical times Branch daily. furosemide 2018-05- No [id number] 40mg Take 1 [facility] 40 mg 2-20 05-19 tablet by ity of tablet 00:00: 00:00 mouth [place] 00 :00 every Medical morning Branch and evening. metFORMIN 2018-05- No [id number] 500mg Take 1 [facility] 500 mg 2-20 05-19 tablet by ity of tablet 00:00: 00:00 mouth 2 [place] 00 :00 (two) Medical times Branch daily with meals. carvedilol 2018-05- No [id number] 3.125mg Take 1 [facility] 3.125 mg 2-20 05-19 tablet by ity o f tablet 00:00: 00:00 mouth 2 [place] 00 :00 (two) Medical times Branch daily with meals. spironolact 2018-05- No [id number] 25mg Take 1 [facility] one 25 mg 2-20 05-19 tablet by ity of tablet 00:00: 00:00 mouth 2 [place] 00 :00 (two) Medical times Branch daily. rifAXIMin 2018-05- No [id number] 550mg Take 1 [facility] 550 mg 2-20 05-19 tablet by ity of tablet 00:00: 00:00 mouth 2 [place] 00 :00 (two) Medical times Branch daily. Pitavastati 2018-05- No [id number] 2mg Take 2 mg [facility] n (LIVALO) 2-20 05-19 by mouth ity of 2 mg Tab 00:00: 00:00 daily. [place] 00 :00 Medical Branch blood sugar 2018-05- No [id number] Use BID, [facility] diagnostic 2-20 05-19 DX E11.9 ity of (ACCU-CHEK 00:00: 00:00 (Brand [place] GUIDE[place] 00 :00 upon Medical strip insurance Branch approval) hydrOXYzine 2018-05- No [id number] 50mg Take 1 [facility] 50 mg 2-20 05-19 tablet by ity of tablet 00:00: 00:00 mouth 3 [place] 00 :00 (three) Medical times Branch daily as needed for Itching. pantoprazol 2018-05- No [id number] 40mg Take 1 [facility] e 40 mg EC 2-20 05-19 tablet by ity of tablet 00:00: 00:00 mouth [place] 00 :00 daily. Medical Branch furosemide 2018-05- No [id number] 40mg Take 1 [facility] 40 mg 2-20 05-19 tablet by ity of tablet 00:00: 00:00 mouth [place] 00 :00 every Medical morning Branch and evening. metFORMIN 2018-05- No [id number] 500mg Take 1 [facility] 500 mg 2-20 05-19 tablet by ity of tablet 00:00: 00:00 mouth 2 [place] 00 :00 (two) Medical times Branch daily with meals. carvedilol 2018-05- No [id number] 3.125mg Take 1 [facility] 3.125 mg 2-20 05-19 tablet by ity o f tablet 00:00: 00:00 mouth 2 [place] 00 :00 (two) Medical times Branch daily with meals. spironolact 2018-05- No [id number] 25mg Take 1 [facility] one 25 mg 2-20 05-19 tablet by ity of tablet 00:00: 00:00 mouth 2 [place] 00 :00 (two) Medical times Branch daily. rifAXIMin 2018-05- No [id number] 550mg Take 1 [facility] 550 mg 07-18 tablet by ity of tablet 00:00: 00:00 mouth 2 [place] 00 :00 (two) Medical times Branch daily. Pitavastati 2018-05- No [id number] 2mg Take 2 mg [facility] n (LIVALO) 07-18 by mouth ity of 2 mg Tab 00:00: 00:00 daily. [place] 00 :00 Medical Branch blood sugar 2018-05- No [id number] Use BID, [facility] diagnostic 07-18 DX E11.9 ity of (ACCU-CHEK 00:00: 00:00 ([place] 00 :00 upon Medical strip insurance Branch approval) hydrOXYzine 2018-05- No [id number] 50mg Take 1 [facility] 50 mg 07-18 tablet by ity of tablet 00:00: 00:00 mouth 3 [place] 00 :00 (three) Medical times Branch daily as needed for Itching. pantoprazol 2018-05- No [id number] 40mg Take 1 [facility] e 40 mg EC 07-18 tablet by ity of tablet 00:00: 00:00 mouth [place] 00 :00 daily. Medical Branch lisinopril 2018-05- No [id number] 20mg Take 1 [facility] 20 mg 07-18 tablet by ity of tablet 00:00: 00:00 mouth [place] 00 :00 daily. Medical Branch foLIC acid 2018-05- No [id number] 1mg Take 1 [facility] 1 mg tablet 07-18 tablet by it y of 00:00: 00:00 mouth [place] 00 :00 daily. Medical Branch foLIC acid 2018-05- No [id number] 1mg Take 1 [facility] 1 mg tablet 07-18 tablet by it y of 00:00: 00:00 mouth [place] 00 :00 daily. Medical Branch doxycycline Yes [id number] 100mg Take 1 [facility] 100 mg 8-29 tablet by ity of tablet 00:00: mouth 2 [place] 00 (two) Medical times Branch daily. doxycycline Yes [id number] 100mg Take 1 [facility] 100 mg 8-29 tablet by ity of tablet 00:00: mouth [place] (two) Medical times Branch daily. doxycycline 2019-0 Yes [id number] 100mg Take 1 [facility] 100 mg 8-29 tablet by ity of tablet 00:00: mouth [place] (two) Medical times Branch daily. doxycycline 2019-0 Yes [id number] 100mg Take 1 [facility] 100 mg 8-29 tablet by ity of tablet 00:00: mouth 2 [place] (two) Medical times Branch daily. doxycycline 2019-0 Yes [id number] 100mg Take 1 [facility] 100 mg 8-29 tablet by ity of tablet 00:00: mouth [place] (two) Medical times Branch daily. doxycycline 2019-0 Yes [id number] 100mg Take 1 [facility] 100 mg 8-29 tablet by ity of tablet 00:00: mouth [place] (two) Medical times Branch daily. doxycycline 2019-0 Yes [id number] 100mg Take 1 [facility] 100 mg 8-29 tablet by ity of tablet 00:00: mouth [address] [place] [address] (two) Medical times Branch daily. doxycycline 2018- Yes [id number] 100mg Take 1 [facility] 100 mg 8-29 tablet by ity of tablet 00:00: mouth [place] (two) Medical times Branch daily. doxycycline 2019-0 Yes [id number] 100mg Take 1 [facility] 100 mg 8-29 tablet by ity of tablet 00:00: mouth [place] (two) Medical times Branch daily. doxycycline 2019-0 Yes [id number] 100mg Take 1 [facility] 100 mg 8-29 tablet by ity of tablet 00:00: mouth [place] (two) Medical times Branch daily. doxycycline 2020- No [id number] 100mg Take 1 [facility] 100 mg 8-29 05-19 tablet by ity of tablet 00:00: 00:00 mouth 2 [place] 00 :00 (two) Medical times Branch daily. doxycycline 2018-2020- No [id number] 100mg Take 1 [facility] 100 mg 8-29 05-19 tablet by ity of tablet 00:00: 00:00 mouth 2 [place] 00 :00 (two) Medical times Branch daily. spironolact 2019- Yes [id number] 25mg Take 1 [facility] one 25 mg 8-07 tablet by ity o f tablet 00:00: mouth 2 [place] (two) Medical times Branch daily. spironolact 2019-0 Yes [id number] 25mg Take 1 [facility] one 25 mg 8-07 tablet by ity o f tablet 00:00: mouth (two) Medical times Branch daily. spironolact 2018- Yes [id number] 25mg Take 1 [facility] one 25 mg 8-07 tablet by ity o f tablet 00:00: mouth (two) Medical times Branch daily. spironolact 2018- Yes [id number] 25mg Take 1 [facility] one 25 mg 8-07 tablet by ity o f tablet 00:00: mouth (two) Medical times Branch daily. spironolact Yes [id number] 25mg Take 1 [facility] one 25 mg 8-07 tablet by ity o f tablet 00:00: mouth (two) Medical times Branch daily. spironolact Yes [id number] 25mg Take 1 [facility] one 25 mg 8-07 tablet by ity o f tablet 00:00: mouth (two) Medical times Branch daily. spironolact Yes [id number] 25mg Take 1 [facility] one 25 mg 8-07 tablet by ity o f tablet 00:00: mouth (two) Medical times Branch daily. spironolact Yes [id number] 25mg Take 1 [facility] one 25 mg 8-07 tablet by ity o f tablet 00:00: mouth (two) Medical times Branch daily. spironolact Yes [id number] 25mg Take 1 [facility] one 25 mg 8-07 tablet by ity o f tablet 00:00: mouth (two) Medical times Branch daily. spironolact Yes [id number] 25mg Take 1 [facility] one 25 mg 8-07 tablet by ity o f tablet 00:00: mouth (two) Medical times Branch daily. ALPRAZolam 2018- Yes [id number] 1mg Take 1 [facility] 1 mg tablet 7-22 tablet by ity of 00:00: mouth (two) Medical times Branch daily. Prn anxiety carvedilol 2018- Yes [id number] 3.125mg Take 1 [facility] 3.125 mg 7-22 tablet by ity of tablet 00:00: mouth (two) Medical times Branch daily with meals. foLIC acid Yes [id number] 1mg Take 1 [facility] 1 mg tablet 7-22 tablet by ity of 00:00: mouth [place] 00 daily. Medical Branch furosemide Yes [id number] 40mg Take 1 [facility] 40 mg 7-22 tablet by ity of tablet 00:00: mouth [place] 00 daily. Medical Branch hydrOXYzine Yes [id number] 50mg Take 1 [facility] 50 mg 7-22 tablet by ity of tablet 00:00: mouth 3 00 (three) Medical times Branch daily as needed for Itching. metFORMIN 2018- Yes [id number] 500mg Take 1 [facility] 500 mg 7-22 tablet by ity of tablet 00:00: mouth 2 00 (two) Medical times Branch daily with meals. pantoprazol Yes [id number] 40mg Take 1 [facility] e 40 mg EC 7-22 tablet by ity of tablet 00:00: mouth [place] 00 daily. Medical Branch clobetasol Yes [id number] Apply to [facility] 0.05 % 7-22 area(s) 2 ity of cream 00:00: (two) [place] 00 times Medical daily. Branch triamcinolo Yes [id number] Apply to [facility] ne 7-22 affected ity of acetonide 00:00: area(s) 2 [place] 0.1 % cream 00 (two) Medical times Branch daily. ALPRAZolam Yes [id number] 1mg Take 1 [facility] 1 mg tablet 7-22 tablet by ity of 00:00: mouth 2 (two) Medical times Branch daily. Prn anxiety carvedilol 2018- Yes [id number] 3.125mg Take 1 [facility] 3.125 mg 7-22 tablet by ity of tablet 00:00: mouth 2 00 (two) Medical times Branch daily with meals. foLIC acid Yes [id number] 1mg Take 1 [facility] 1 mg tablet 7-22 tablet by ity of 00:00: mouth [place] 00 daily. Medical Branch furosemide Yes [id number] 40mg Take 1 [facility] 40 mg 7-22 tablet by ity of tablet 00:00: mouth [place] 00 daily. Medical Branch hydrOXYzine Yes [id number] 50mg Take 1 [facility] 50 mg 7-22 tablet by ity of tablet 00:00: mouth 3 (three) Medical times Branch daily as needed for Itching. metFORMIN 2018- Yes [id number] 500mg Take 1 [facility] 500 mg 7-22 tablet by ity of tablet 00:00: mouth 2 (two) Medical times Branch daily with meals. pantoprazol Yes [id number] 40mg Take 1 [facility] e 40 mg EC 7-22 tablet by ity of tablet 00:00: mouth [place] 00 daily. Medical Branch clobetasol Yes [id number] Apply to [facility] 0.05 % 7-22 area(s) 2 ity of cream 00:00: (two) [place] 00 times Medical daily. Branch triamcinolo Yes [id number] Apply to [facility] ne 7-22 affected ity of acetonide 00:00: area(s) 2 [place] 0.1 % cream 00 (two) Medical times Branch daily. ALPRAZolam Yes [id number] 1mg Take 1 [facility] 1 mg tablet 7-22 tablet by ity of 00:00: mouth 2 (two) Medical times Branch daily. Prn anxiety carvedilol 2018- Yes [id number] 3.125mg Take 1 [facility] 3.125 mg 7-22 tablet by ity of tablet 00:00: mouth 2 (two) Medical times Branch daily with meals. foLIC acid 2018-0 Yes [id number] 1mg Take 1 [facility] 1 mg tablet 7-22 tablet by ity of 00:00: mouth [place] 00 daily. Medical Branch furosemide 2018- Yes [id number] 40mg Take 1 [facility] 40 mg 7-22 tablet by ity of tablet 00:00: mouth 00 daily. Medical Branch hydrOXYzine 2018- Yes [id number] 50mg Take 1 [facility] 50 mg 7-22 tablet by ity of tablet 00:00: mouth 3 (three) Medical times Branch daily as needed for Itching. metFORMIN 2018- Yes [id number] 500mg Take 1 [facility] 500 mg 7-22 tablet by ity of tablet 00:00: mouth 2 (two) Medical times Branch daily with meals. pantoprazol 2018- Yes [id number] 40mg Take 1 [facility] e 40 mg EC 7-22 tablet by ity of tablet 00:00: mouth [place] 00 daily. Medical Branch clobetasol Yes [id number] Apply to [facility] 0.05 % 7-22 area(s) 2 ity of cream 00:00: (two) [place] 00 times Medical daily. Branch triamcinolo Yes [id number] Apply to [facility] ne 7-22 affected ity of acetonide 00:00: area(s) 2 [place] 0.1 % cream 00 (two) Medical times Branch daily. ALPRAZolam Yes [id number] 1mg Take 1 [facility] 1 mg tablet 7-22 tablet by ity of 00:00: mouth 2 (two) Medical times Branch daily. Prn anxiety carvedilol Yes [id number] 3.125mg Take 1 [facility] 3.125 mg 7-22 tablet by ity of tablet 00:00: mouth 2 (two) Medical times Branch daily with meals. foLIC acid Yes [id number] 1mg Take 1 [facility] 1 mg tablet 7-22 tablet by ity of 00:00: mouth 00 daily. Medical Branch furosemide Yes [id number] 40mg Take 1 [facility] 40 mg 7-22 tablet by ity of tablet 00:00: mouth 00 daily. Medical Branch hydrOXYzine Yes [id number] 50mg Take 1 [facility] 50 mg 7-22 tablet by ity of tablet 00:00: mouth 3 (three) Medical times Branch daily as needed for Itching. metFORMIN Yes [id number] 500mg Take 1 [facility] 500 mg 7-22 tablet by ity of tablet 00:00: mouth 2 (two) Medical times Branch daily with meals. pantoprazol Yes [id number] 40mg Take 1 [facility] e 40 mg EC 7-22 tablet by ity of tablet 00:00: mouth [place] 00 daily. Medical Branch clobetasol Yes [id number] Apply to [facility] 0.05 % 7-22 area(s) 2 ity of cream 00:00: (two) [place] 00 times Medical daily. Branch triamcinolo Yes [id number] Apply to [facility] ne 7-22 affected ity of acetonide 00:00: area(s) 2 [place] 0.1 % cream 00 (two) Medical times Branch daily. ALPRAZolam Yes [id number] 1mg Take 1 [facility] 1 mg tablet 7-22 tablet by ity of 00:00: mouth 2 (two) Medical times Branch daily. Prn anxiety carvedilol Yes [id number] 3.125mg Take 1 [facility] 3.125 mg 7-22 tablet by ity of tablet 00:00: mouth 2 (two) Medical times Branch daily with meals. foLIC acid Yes [id number] 1mg Take 1 [facility] 1 mg tablet 7-22 tablet by ity of 00:00: mouth 00 daily. Medical Branch hydrOXYzine Yes [id number] 50mg Take 1 [facility] 50 mg 7-22 tablet by ity of tablet 00:00: mouth 3 (three) Medical times Branch daily as needed for Itching. metFORMIN Yes [id number] 500mg Take 1 [facility] 500 mg 7-22 tablet by ity of tablet 00:00: mouth 2 (two) Medical times Branch daily with meals. pantoprazol Yes [id number] 40mg Take 1 [facility] e 40 mg EC 7-22 tablet by ity of tablet 00:00: mouth 00 daily. Medical Branch clobetasol Yes [id number] Apply to [facility] 0.05 % 7-22 area(s) 2 ity of cream 00:00: (two) times Medical daily. Branch triamcinolo Yes [id number] Apply to [facility] ne 7-22 affected ity of acetonide 00:00: area(s) 2 [place] 0.1 % cream 00 (two) Medical times Branch daily. ALPRAZolam Yes [id number] 1mg Take 1 [facility] 1 mg tablet 7-22 tablet by ity of 00:00: mouth 2 (two) Medical times Branch daily. Prn anxiety carvedilol Yes [id number] 3.125mg Take 1 [facility] 3.125 mg 7-22 tablet by ity of tablet 00:00: mouth 2 (two) Medical times Branch daily with meals. foLIC acid Yes [id number] 1mg Take 1 [facility] 1 mg tablet 7-22 tablet by ity of 00:00: mouth 00 daily. Medical Branch hydrOXYzine Yes [id number] 50mg Take 1 [facility] 50 mg 7-22 tablet by ity of tablet 00:00: mouth 3 (three) Medical times Branch daily as needed for Itching. metFORMIN 2018- Yes [id number] 500mg Take 1 [facility] 500 mg 7-22 tablet by ity of tablet 00:00: mouth 2 (two) Medical times Branch daily with meals. pantoprazol 2018- Yes [id number] 40mg Take 1 [facility] e 40 mg EC 7-22 tablet by ity of tablet 00:00: mouth [place] 00 daily. Medical Branch clobetasol 2018- Yes [id number] Apply to [facility] 0.05 % 7-22 area(s) 2 ity of cream 00:00: (two) [place] 00 times Medical daily. Branch triamcinolo Yes [id number] Apply to [facility] ne 7-22 affected ity of acetonide 00:00: area(s) 2 [place] 0.1 % cream 00 (two) Medical times Branch daily. ALPRAZolam Yes [id number] 1mg Take 1 [facility] 1 mg tablet 7-22 tablet by ity of 00:00: mouth 2 (two) Medical times Branch daily. Prn anxiety carvedilol 2018- Yes [id number] 3.125mg Take 1 [facility] 3.125 mg 7-22 tablet by ity of tablet 00:00: mouth 2 (two) Medical times Branch daily with meals. foLIC acid 2018- Yes [id number] 1mg Take 1 [facility] 1 mg tablet 7-22 tablet by ity of 00:00: mouth 00 daily. Medical Branch hydrOXYzine 2018- Yes [id number] 50mg Take 1 [facility] 50 mg 7-22 tablet by ity of tablet 00:00: mouth 3 (three) Medical times Branch daily as needed for Itching. metFORMIN 2018- Yes [id number] 500mg Take 1 [facility] 500 mg 7-22 tablet by ity of tablet 00:00: mouth 2 (two) Medical times Branch daily with meals. pantoprazol 2018- Yes [id number] 40mg Take 1 [facility] e 40 mg EC 7-22 tablet by ity of tablet 00:00: mouth [place] 00 daily. Medical Branch clobetasol 2018- Yes [id number] Apply to [facility] 0.05 % 7-22 area(s) 2 ity of cream 00:00: (two) [place] 00 times Medical daily. Branch triamcinolo Yes [id number] Apply to [facility] ne 7-22 affected ity of acetonide 00:00: area(s) 2 [place] 0.1 % cream 00 (two) Medical times Branch daily. ALPRAZolam Yes [id number] 1mg Take 1 [facility] 1 mg tablet 7-22 tablet by ity of 00:00: mouth 2 [place] 00 (two) Medical times Branch daily. Prn anxiety carvedilol Yes [id number] 3.125mg Take 1 [facility] 3.125 mg 7-22 tablet by ity of tablet 00:00: mouth 2 (two) Medical times Branch daily with meals. foLIC acid Yes [id number] 1mg Take 1 [facility] 1 mg tablet 7-22 tablet by ity of 00:00: mouth [place] 00 daily. Medical Branch hydrOXYzine Yes [id number] 50mg Take 1 [facility] 50 mg 7-22 tablet by ity of tablet 00:00: mouth 3 [place] (three) Medical times Branch daily as needed for Itching. metFORMIN Yes [id number] 500mg Take 1 [facility] 500 mg 7-22 tablet by ity of tablet 00:00: mouth 2 (two) Medical times Branch daily with meals. pantoprazol Yes [id number] 40mg Take 1 [facility] e 40 mg EC 7-22 tablet by ity of tablet 00:00: mouth [place] 00 daily. Medical Branch clobetasol Yes [id number] Apply to [facility] 0.05 % 7-22 area(s) 2 ity of cream 00:00: (two) [place] 00 times Medical daily. Branch triamcinolo Yes [id number] Apply to [facility] ne 7-22 affected ity of acetonide 00:00: area(s) 2 [place] 0.1 % cream 00 (two) Medical times Branch daily. ALPRAZolam Yes [id number] 1mg Take 1 [facility] 1 mg tablet 7-22 tablet by ity of 00:00: mouth 2 [place] 00 (two) Medical times Branch daily. Prn anxiety carvedilol Yes [id number] 3.125mg Take 1 [facility] 3.125 mg 7-22 tablet by ity of tablet 00:00: mouth 2 (two) Medical times Branch daily with meals. foLIC acid 2018- Yes [id number] 1mg Take 1 [facility] 1 mg tablet 7-22 tablet by ity of 00:00: mouth 00 daily. Medical Branch hydrOXYzine 2018- Yes [id number] 50mg Take 1 [facility] 50 mg 7-22 tablet by ity of tablet 00:00: mouth 3 (three) Medical times Branch daily as needed for Itching. metFORMIN 2018- Yes [id number] 500mg Take 1 [facility] 500 mg 7-22 tablet by ity of tablet 00:00: mouth 2 (two) Medical times Branch daily with meals. pantoprazol 2018- Yes [id number] 40mg Take 1 [facility] e 40 mg EC 7-22 tablet by ity of tablet 00:00: mouth 00 daily. Medical Branch clobetasol Yes [id number] Apply to [facility] 0.05 % 7-22 area(s) 2 ity of cream 00:00: (two) 00 times Medical daily. Branch triamcinolo Yes [id number] Apply to [facility] ne 7-22 affected ity of acetonide 00:00: area(s) 2 [place] 0.1 % cream 00 (two) Medical times Branch daily. ALPRAZolam Yes [id number] 1mg Take 1 [facility] 1 mg tablet 7-22 tablet by ity of 00:00: mouth 2 (two) Medical times Branch daily. Prn anxiety carvedilol 2018- Yes [id number] 3.125mg Take 1 [facility] 3.125 mg 7-22 tablet by ity of tablet 00:00: mouth 2 (two) Medical times Branch daily with meals. foLIC acid 2018- Yes [id number] 1mg Take 1 [facility] 1 mg tablet 7-22 tablet by ity of 00:00: mouth 00 daily. Medical Branch hydrOXYzine Yes [id number] 50mg Take 1 [facility] 50 mg 7-22 tablet by ity of tablet 00:00: mouth 3 (three) Medical times Branch daily as needed for Itching. metFORMIN 2018- Yes [id number] 500mg Take 1 [facility] 500 mg 7-22 tablet by ity of tablet 00:00: mouth 2 [place] 00 (two) Medical times Branch daily with meals. pantoprazol 2019- Yes [id number] 40mg Take 1 [facility] e 40 mg EC 7-22 tablet by ity of tablet 00:00: mouth [place] 00 daily. Medical Branch clobetasol Yes [id number] Apply to [facility] 0.05 % 7-22 area(s) 2 ity of cream 00:00: (two) [place] 00 times Medical daily. Branch triamcinolo Yes [id number] Apply to [facility] ne 7-22 affected ity of acetonide 00:00: area(s) 2 [place] 0.1 % cream 00 (two) Medical times Branch daily. ALPRAZolam Yes [id number] 1mg Take 1 [facility] 1 mg tablet 7-22 tablet by ity of 00:00: mouth 2 (two) Medical times Branch daily. Prn anxiety carvedilol 2018- Yes [id number] 3.125mg Take 1 [facility] 3.125 mg 7-22 tablet by ity of tablet 00:00: mouth 2 (two) Medical times Branch daily with meals. foLIC acid Yes [id number] 1mg Take 1 [facility] 1 mg tablet 7-22 tablet by ity of 00:00: mouth 00 daily. Medical Branch hydrOXYzine Yes [id number] 50mg Take 1 [facility] 50 mg 7-22 tablet by ity of tablet 00:00: mouth 3 00 (three) Medical times Branch daily as needed for Itching. metFORMIN 2018- Yes [id number] 500mg Take 1 [facility] 500 mg 7-22 tablet by ity of tablet 00:00: mouth 2 (two) Medical times Branch daily with meals. pantoprazol Yes [id number] 40mg Take 1 [facility] e 40 mg EC 7-22 tablet by ity of tablet 00:00: mouth [place] 00 daily. Medical Branch clobetasol Yes [id number] Apply to [facility] 0.05 % 7-22 area(s) 2 ity of cream 00:00: (two) [place] 00 times Medical daily. Branch triamcinolo Yes [id number] Apply to [facility] ne 7-22 affected ity of acetonide 00:00: area(s) 2 [place] 0.1 % cream 00 (two) Medical times Branch daily. ALPRAZolam Yes [id number] 1mg Take 1 [facility] 1 mg tablet 7-22 tablet by ity of 00:00: mouth 2 (two) Medical times Branch daily. Prn anxiety carvedilol Yes [id number] 3.125mg Take 1 [facility] 3.125 mg 7-22 tablet by ity of tablet 00:00: mouth 2 (two) Medical times Branch daily with meals. foLIC acid Yes [id number] 1mg Take 1 [facility] 1 mg tablet 7-22 tablet by ity of 00:00: mouth 00 daily. Medical Branch hydrOXYzine Yes [id number] 50mg Take 1 [facility] 50 mg 7-22 tablet by ity of tablet 00:00: mouth 3 (three) Medical times Branch daily as needed for Itching. metFORMIN Yes [id number] 500mg Take 1 [facility] 500 mg 7-22 tablet by ity of tablet 00:00: mouth 2 (two) Medical times Branch daily with meals. pantoprazol Yes [id number] 40mg Take 1 [facility] e 40 mg EC 7-22 tablet by ity of tablet 00:00: mouth 00 daily. Medical Branch clobetasol Yes [id number] Apply to [facility] 0.05 % 7-22 area(s) 2 ity of cream 00:00: (two) 00 times Medical daily. Branch triamcinolo Yes [id number] Apply to [facility] ne 7-22 affected ity of acetonide 00:00: area(s) 2 [place] 0.1 % cream 00 (two) Medical times Branch daily. ALPRAZolam Yes [id number] 1mg Take 1 [facility] 1 mg tablet 7-22 tablet by ity of 00:00: mouth 2 (two) Medical times Branch daily. Prn anxiety carvedilol 2018- Yes [id number] 3.125mg Take 1 [facility] 3.125 mg 7-22 tablet by ity of tablet 00:00: mouth 2 (two) Medical times Branch daily with meals. foLIC acid Yes [id number] 1mg Take 1 [facility] 1 mg tablet 7-22 tablet by ity of 00:00: mouth 00 daily. Medical Branch furosemide Yes [id number] 40mg Take 1 [facility] 40 mg 7-22 tablet by ity of tablet 00:00: mouth [place] 00 daily. Medical Branch hydrOXYzine Yes [id number] 50mg Take 1 [facility] 50 mg 7-22 tablet by ity of tablet 00:00: mouth 3 [place] 00 (three) Medical times Branch daily as needed for Itching. metFORMIN Yes [id number] 500mg Take 1 [facility] 500 mg 7-22 tablet by ity of tablet 00:00: mouth 2 [place] 00 (two) Medical times Branch daily with meals. pantoprazol Yes [id number] 40mg Take 1 [facility] e 40 mg EC 7-22 tablet by ity of tablet 00:00: mouth [place] 00 daily. Medical Branch spironolact Yes [id number] 25mg Take 1 [facility] one 25 mg 7-22 tablet by ity o f tablet 00:00: mouth 2 [place] 00 (two) Medical times Branch daily. clobetasol Yes [id number] Apply to [facility] 0.05 % 7-22 area(s) 2 ity of cream 00:00: (two) [place] 00 times Medical daily. Branch triamcinolo Yes [id number] Apply to [facility] ne 7-22 affected ity of acetonide 00:00: area(s) 2 [place] 0.1 % cream 00 (two) Medical times Branch daily. furosemide 2019- No [id number] 40mg Take 1 [facility] 40 mg 7-22 08-26 tablet by ity of tablet 00:00: 00:00 mouth [place] 00 :00 daily. Medical Branch furosemide 2019- No [id number] 40mg Take 1 [facility] 40 mg 7-22 08-26 tablet by ity of tablet 00:00: 00:00 mouth [place] 00 :00 daily. Medical Branch spironolact 2019- No [id number] 25mg Take 1 [facility] one 25 mg 7-22 08-07 tablet by ity of tablet 00:00: 00:00 mouth 2 [place] 00 :00 (two) Medical times Branch daily. Pitavastati Yes 2mg Take 2 mg U nivers n (LIVALO) 6-18 by mouth ity o f 2 mg Tab 16:18: daily. [place] 51 Medical Branch Pitavastati 0 Yes 2mg Take 2 mg U nivers n (LIVALO) 6-18 by mouth ity o f 2 mg Tab 16:18: daily. [address] Pitavastati 0 Yes 2mg Take 2 mg U nivers n (LIVALO) 6-18 by mouth ity o f 2 mg Tab 16:18: daily. [address] Pitavastati 0 Yes 2mg Take 2 mg U nivers n (LIVALO) 6-18 by mouth ity o f 2 mg Tab 16:18: daily. [address] Pitavastati 0 Yes 2mg Take 2 mg U nivers n (LIVALO) 6-18 by mouth ity o f 2 mg Tab 16:18: daily. [address] Pitavastati 0 Yes 2mg Take 2 mg U nivers n (LIVALO) 6-18 by mouth ity o f 2 mg Tab 16:18: daily. [address] Pitavastati 0 Yes 2mg Take 2 mg U nivers n (LIVALO) 6-18 by mouth ity o f 2 mg Tab 16:18: daily. [address] Pitavastati 0 Yes 2mg Take 2 mg U nivers n (LIVALO) 6-18 by mouth ity o f 2 mg Tab 16:18: daily. [address] Pitavastati 0 Yes 2mg Take 2 mg U nivers n (LIVALO) 6-18 by mouth ity o f 2 mg Tab 16:18: daily. [address] Pitavastati 0 Yes 2mg Take 2 mg U nivers n (LIVALO) 6-18 by mouth ity o f 2 mg Tab 16:18: daily. [address] Pitavastati 0 Yes 2mg Take 2 mg U nivers n (LIVALO) 6-18 by mouth ity o f 2 mg Tab 16:18: daily. [address] Pitavastati 0 Yes 2mg Take 2 mg U nivers n (LIVALO) 6-18 by mouth ity o f 2 mg Tab 16:18: daily. [address] Pitavastati 0 Yes 2mg Take 2 mg U nivers n (LIVALO) 6-18 by mouth ity o f 2 mg Tab 16:18: daily. [place] 51 Medical Branch traMADOL 2019-0 Yes [id number] 50mg Take 1 Un epifanio (ULTRAM) 50 6-18 tablet by ity of mg tablet 00:00: mouth [place] 00 every 6 Medical (six) Branch hours as needed for Pain (scale 4-6). traMADOL 2019-0 Yes [id number] 50mg Take 1 Un epifanio (ULTRAM) 50 6-18 tablet by ity of mg tablet 00:00: mouth [place] 00 every 6 Medical (six) Branch hours as needed for Pain (scale 4-6). traMADOL 2019-0 Yes [id number] 50mg Take 1 Un epifanio (ULTRAM) 50 6-18 tablet by ity of mg tablet 00:00: mouth [place] 00 every 6 Medical (six) Branch hours as needed for Pain (scale 4-6). traMADOL 2018-0 Yes [id number] 50mg Take 1 Un epifanio (ULTRAM) 50 6-18 tablet by ity of mg tablet 00:00: mouth [place] 00 every 6 Medical (six) Branch hours as needed for Pain (scale 4-6). traMADOL 2019-0 Yes [id number] 50mg Take 1 Un epifanio (ULTRAM) 50 6-18 tablet by ity of mg tablet 00:00: mouth [place] 00 every 6 Medical (six) Branch hours as needed for Pain (scale 4-6). traMADOL 2019-0 Yes [id number] 50mg Take 1 Un epifanio (ULTRAM) 50 6-18 tablet by ity of mg tablet 00:00: mouth [place] 00 every 6 Medical (six) Branch hours as needed for Pain (scale 4-6). traMADOL 2019-0 Yes [id number] 50mg Take 1 Un epifanio (ULTRAM) 50 6-18 tablet by ity of mg tablet 00:00: mouth [place] 00 every 6 Medical (six) Branch hours as needed for Pain (scale 4-6). traMADOL 2019-0 Yes [id number] 50mg Take 1 Un epifanio (ULTRAM) 50 6-18 tablet by ity of mg tablet 00:00: mouth [place] 00 every 6 Medical (six) Branch hours as needed for Pain (scale 4-6). traMADOL 2019-0 Yes [id number] 50mg Take 1 Un epifanio (ULTRAM) 50 6-18 tablet by ity of mg tablet 00:00: mouth [place] 00 every 6 Medical (six) Branch hours as needed for Pain (scale 4-6). traMADOL 2019-0 Yes [id number] 50mg Take 1 Un epifanio (ULTRAM) 50 6-18 tablet by ity of mg tablet 00:00: mouth [place] 00 every 6 Medical (six) Branch hours as needed for Pain (scale 4-6). traMADOL 2019-0 Yes [id number] 50mg Take 1 Un epifanio (ULTRAM) 50 6-18 tablet by ity of mg tablet 00:00: mouth [place] 00 every 6 Medical (six) Branch hours as needed for Pain (scale 4-6). traMADOL 2019-0 Yes [id number] 50mg Take 1 Un epifanio (ULTRAM) 50 6-18 tablet by ity of mg tablet 00:00: mouth [place] 00 every 6 Medical (six) Branch hours as needed for Pain (scale 4-6). traMADOL 2019-0 Yes [id number] 50mg Take 1 Un epifanio (ULTRAM) 50 6-18 tablet by ity of mg tablet 00:00: mouth [place] 00 every 6 Medical (six) Branch hours as needed for Pain (scale 4-6). traMADOL 2019-0 Yes [id number] 50mg Take 1 Un epifanio (ULTRAM) 50 6-18 tablet by ity of mg tablet 00:00: mouth [place] 00 every 6 Medical (six) Branch hours as needed for Pain (scale 4-6). traMADOL 2019-0 Yes [id number] 50mg Take 1 Un epifanio (ULTRAM) 50 6-18 tablet by ity of mg tablet 00:00: mouth [place] 00 every 6 Medical (six) Branch hours as needed for Pain (scale 4-6). traMADOL 2019-0 Yes [id number] 50mg Take 1 Un epifanio (ULTRAM) 50 6-18 tablet by ity of mg tablet 00:00: mouth [place] 00 every 6 Medical (six) Branch hours as needed for Pain (scale 4-6). traMADOL 2019-0 Yes [id number] 50mg Take 1 Un epifanio (ULTRAM) 50 6-18 tablet by ity of mg tablet 00:00: mouth [place] 00 every 6 Medical (six) Branch hours as needed for Pain (scale 4-6). traMADOL 2019-0 Yes [id number] 50mg Take 1 Un epifanio (ULTRAM) 50 6-18 tablet by ity of mg tablet 00:00: mouth [place] 00 every 6 Medical (six) Branch hours as needed for Pain (scale 4-6). traMADOL Yes [id number] 50mg Take 1 Un epifanio (ULTRAM) 50 6-18 tablet by ity of mg tablet 00:00: mouth [place] 00 every 6 Medical (six) Branch hours as needed for Pain (scale 4-6). traMADOL Yes [id number] 50mg Take 1 Un epifanio (ULTRAM) 50 6-18 tablet by ity of mg tablet 00:00: mouth [place] 00 every 6 Medical (six) Branch hours as needed for Pain (scale 4-6). traMADOL 2020- No [id number] 50mg Take 1 U nivers (ULTRAM) 50 6-18 05-19 tablet by it y of mg tablet 00:00: 00:00 mouth [place] 00 :00 every 6 Medical (six) Branch hours as needed for Pain (scale 4-6). traMADOL 2020- No [id number] 50mg Take 1 U nivers (ULTRAM) 50 6-18 05-19 tablet by it y of mg tablet 00:00: 00:00 mouth [place] 00 :00 every 6 Medical (six) Branch hours as needed for Pain (scale 4-6). folic acid Yes 1mg QD Take [address] [facility] (FOLVITE) 1 6-13 by [facility] tablet 00:00: daily . Medic al 00 [place] folic acid [id number] Yes 1mg QD Take [address] [facility] (FOLVITE) 1 6-13 by [facility] tablet 00:00: daily . Medic al 00 [place] folic acid 2019-0 Yes 1mg QD Take [address] [facility] (FOLVITE) 1 6-13 by [facility] tablet 00:00: daily . Medic al 00 [place] folic acid 2019-0 Yes 1mg QD Take [address] [facility] (FOLVITE) 1 6-13 by [facility] tablet 00:00: daily . Medic al 00 [place] folic acid 2019-0 Yes 1mg QD Take [address] [facility] (FOLVITE) 1 6-13 by mouth [facility] tablet 00:00: daily . Medic al [place] folic acid Yes 1mg QD Take [address] [facility] (FOLVITE) 1 6-13 by [facility] tablet 00:00: daily . Medic al [place] lactulose 0 Yes TK [address] [facility] (CHRONULAC) 5-04 PO TID [facility] gram/15 00:00: Medical mL solution [place] lactulose Yes TK [address] [facility] (CHRONULAC) 5-04 PO TID [facility] gram/15 00:00: Medical mL solution [place] lactulose Yes TK [address] [facility] (CHRONULAC) 5-04 PO TID [facility] gram/15 00:00: Medical mL solution [place] lactulose Yes TK [address] [facility] (CHRONULAC) 5-04 PO TID [facility] gram/15 00:00: Medical mL solution [place] lactulose Yes TK [address] [facility] (CHRONULAC) 5-04 PO TID [facility] gram/15 00:00: Medical mL solution [place] lactulose Yes TK [address] [facility] (CHRONULAC) 5-04 PO TID [facility] gram/15 00:00: Medical mL solution [place] blood sugar Yes [id number] Use BID, [facility] diagnostic 4-23 DX E11.9 ity o f (ACCU-CHEK 00:00: (Brand [place] GUIDE) 00 upon Medical strip insurance Branch approval) Lancets Yes [id number] Use BID, U nivers Misc 4-23 DX E11.9 ity of 00:00: (Brand [place] 00 upon Medical insurance Branch approval) Blood-Gluco Yes [id number] Use BID, [facility] se Meter 4-23 DX E11.9 ity of (ACCU-CHEK 00:00: (Brand [place] GUIDE 00 upon Medical GLUCOSE insurance Branch METER) Misc approval) ACCU-CHEK GUIDE blood sugar 2018- Yes [id number] Use BID, [facility] diagnostic 4-23 DX E11.9 ity o f (ACCU-CHEK 00:00: (Brand [place] GUIDE) 00 upon Medical strip insurance Branch approval) Lancets Yes [id number] Use BID, U nivers Misc 4-23 DX E11.9 ity of 00:00: (Brand [place] 00 upon Medical insurance Branch approval) Blood-Gluco 2019- Yes [id number] Use BID, [facility] se Meter 4-23 DX E11.9 ity of (ACCU-CHEK 00:00: (Brand [place] GUIDE 00 upon Medical GLUCOSE insurance Branch METER) Misc approval) ACCU-CHEK GUIDE blood sugar 2019- Yes [id number] Use BID, [facility] diagnostic 4-23 DX E11.9 ity o f (ACCU-CHEK 00:00: (Brand [place] GUIDE) 00 upon Medical strip insurance Branch approval) Lancets 2019- Yes [id number] Use BID, U nivers Misc 4-23 DX E11.9 ity of 00:00: (Brand [place] 00 upon Medical insurance Branch approval) Blood-Gluco 2018- Yes [id number] Use BID, [facility] se Meter 23 DX E11.9 ity of (ACCU-CHEK 00:00: (Brand [place] GUIDE 00 upon Medical GLUCOSE insurance Branch METER) Misc approval) ACCU-CHEK GUIDE blood sugar 2018- Yes [id number] Use BID, [facility] diagnostic -23 DX E11.9 ity o f (ACCU-CHEK 00:00: (Brand [place] GUIDE) 00 upon Medical strip insurance Branch approval) Lancets 2019- Yes [id number] Use BID, U nivers Misc -23 DX E11.9 ity of 00:00: (Brand [place] 00 upon Medical insurance Branch approval) Blood-Gluco 2019- Yes [id number] Use BID, Univers se Meter 4-23 DX E11.9 ity of (ACCU-CHEK 00:00: (Brand [place] GUIDE 00 upon Medical GLUCOSE insurance Branch METER) Misc approval) ACCU-CHEK GUIDE blood sugar 2019- Yes [id number] Use BID, [facility] diagnostic 4-23 DX E11.9 ity o f (ACCU-CHEK 00:00: (Brand [place] GUIDE) 00 upon Medical strip insurance Branch approval) Lancets 2019- Yes [id number] Use BID, U nivers Misc 4-23 DX E11.9 ity of 00:00: (Brand [place] 00 upon Medical insurance Branch approval) Blood-Gluco 2019- Yes [id number] Use BID, [facility] se Meter 4-23 DX E11.9 ity of (ACCU-CHEK 00:00: (Brand [place] GUIDE 00 upon Medical GLUCOSE insurance Branch METER) Misc approval) ACCU-CHEK GUIDE blood sugar 2019-0 Yes [id number] Use BID, [facility] diagnostic 4-23 DX E11.9 ity o f (ACCU-CHEK 00:00: (Brand [place] GUIDE) 00 upon Medical strip insurance Branch approval) Lancets 2019- Yes [id number] Use BID, U nivers Misc 4-23 DX E11.9 ity of 00:00: (Brand [place] 00 upon Medical insurance Branch approval) Blood-Gluco 2019- Yes [id number] Use BID, Univers se Meter 23 DX E11.9 ity of (ACCU-CHEK 00:00: (Brand [place] GUIDE 00 upon Medical GLUCOSE insurance Branch METER) Misc approval) ACCU-CHEK GUIDE blood sugar 2019-0 Yes [id number] Use BID, [facility] diagnostic 23 DX E11.9 ity o f (ACCU-CHEK 00:00: (Brand [place] GUIDE) 00 upon Medical strip insurance Branch approval) Lancets 2019-0 Yes [id number] Use BID, U nivers Misc 23 DX E11.9 ity of 00:00: (Brand [place] 00 upon Medical insurance Branch approval) Blood-Gluco 2019-0 Yes [id number] Use BID, Univers se Meter 09-18 DX E11.9 ity of (ACCU-CHEK 00:00: (Brand [place] GUIDE 00 upon Medical GLUCOSE insurance Branch METER) Misc approval) ACCU-CHEK GUIDE blood sugar 2019-0 Yes [id number] Use BID, [facility] diagnostic 23 DX E11.9 ity o f (ACCU-CHEK 00:00: (Brand [place] GUIDE) 00 upon Medical strip insurance Branch approval) Lancets 2019- Yes [id number] Use BID, U nivers Misc 4-23 DX E11.9 ity of 00:00: (Brand [place] 00 upon Medical insurance Branch approval) Blood-Gluco 2019-0 Yes [id number] Use BID, Univers se Meter 423 DX E11.9 ity of (ACCU-CHEK 00:00: (Brand [place] GUIDE 00 upon Medical GLUCOSE insurance Branch METER) Misc approval) ACCU-CHEK GUIDE blood sugar 2019-0 Yes [id number] Use BID, [facility] diagnostic 4-23 DX E11.9 ity o f (ACCU-CHEK 00:00: (Brand [place] GUIDE) 00 upon Medical strip insurance Branch approval) Lancets 2019- Yes [id number] Use BID, U nivers Misc 4-23 DX E11.9 ity of 00:00: (Brand [place] 00 upon Medical insurance Branch approval) Blood-Gluco 2019- Yes [id number] Use BID, Univers se Meter 4-23 DX E11.9 ity of (ACCU-CHEK 00:00: (Brand [place] GUIDE 00 upon Medical GLUCOSE insurance Branch METER) Misc approval) ACCU-CHEK GUIDE blood sugar 2019- Yes [id number] Use BID, [facility] diagnostic 4-23 DX E11.9 ity o f (ACCU-CHEK 00:00: (Brand [place] GUIDE) 00 upon Medical strip insurance Branch approval) Lancets 2019 Yes [id number] Use BID, U nivers Misc 423 DX E11.9 ity of 00:00: (Brand [place] 00 upon Medical insurance Branch approval) Blood-Gluco 2018- Yes [id number] Use BID, [facility] se Meter 23 DX E11.9 ity of (ACCU-CHEK 00:00: (Brand [place] GUIDE 00 upon Medical GLUCOSE insurance Branch METER) Misc approval) ACCU-CHEK GUIDE blood sugar 2019- Yes [id number] Use BID, [facility] diagnostic 4-23 DX E11.9 ity o f (ACCU-CHEK 00:00: (Brand [place] GUIDE) 00 upon Medical strip insurance Branch approval) Lancets 2019- Yes [id number] Use BID, U nivers Misc 23 DX E11.9 ity of 00:00: (Brand [place] 00 upon Medical insurance Branch approval) Blood-Gluco 2019- Yes [id number] Use BID, [facility] se Meter 423 DX E11.9 ity of (ACCU-CHEK 00:00: (Brand [place] GUIDE 00 upon Medical GLUCOSE insurance Branch METER) Misc approval) ACCU-CHEK GUIDE Blood-Gluco 2019-0 Yes [id number] Use BID, [facility] se Meter 4-23 DX E11.9 ity of (ACCU-CHEK 00:00: (Brand [place] GUIDE 00 upon Medical GLUCOSE insurance Branch METER) Misc approval) ACCU-CHEK GUIDE Blood-Gluco 2018- Yes [id number] Use BID, [facility] se Meter 4-23 DX E11.9 ity of (ACCU-CHEK 00:00: (Brand [place] GUIDE 00 upon Medical GLUCOSE insurance Branch METER) Misc approval) ACCU-CHEK GUIDE Blood-Gluco Yes [id number] Use BID, [facility] se Meter 4-23 DX E11.9 ity of (ACCU-CHEK 00:00: (Brand [place] GUIDE 00 upon Medical GLUCOSE insurance Branch METER) Misc approval) ACCU-CHEK GUIDE Blood-Gluco 2018- Yes [id number] Use BID, Univers se Meter -23 DX E11.9 ity of (ACCU-CHEK 00:00: (Brand [place] GUIDE 00 upon Medical GLUCOSE insurance Branch METER) Misc approval) ACCU-CHEK GUIDE Blood-Gluco Yes [id number] Use BID, Univers se Meter -23 DX E11.9 ity of (ACCU-CHEK 00:00: (Brand [place] GUIDE 00 upon Medical GLUCOSE insurance Branch METER) Misc approval) ACCU-CHEK GUIDE Blood-Gluco Yes [id number] Use BID, Univers se Meter -23 DX E11.9 ity of (ACCU-CHEK 00:00: (Brand [place] GUIDE 00 upon Medical GLUCOSE insurance Branch METER) Misc approval) ACCU-CHEK GUIDE Blood-Gluco Yes [id number] Use BID, Univers se Meter -23 DX E11.9 ity of (ACCU-CHEK 00:00: (Brand [place] GUIDE 00 upon Medical GLUCOSE insurance Branch METER) Misc approval) ACCU-CHEK GUIDE Blood-Gluco 2018- Yes [id number] Use BID, Univers se Meter -23 DX E11.9 ity of (ACCU-CHEK 00:00: (Brand [place] GUIDE 00 upon Medical GLUCOSE insurance Branch METER) Misc approval) ACCU-CHEK GUIDE blood sugar 2018- Yes [id number] Use BID, Univers diagnostic 4-23 DX E11.9 ity o f (ACCU-CHEK 00:00: (Brand [place] GUIDE) 00 upon Medical strip insurance Branch approval) Lancets 2019- Yes [id number] Use BID, U nivers Misc 4-23 DX E11.9 ity of 00:00: (Brand [place] 00 upon Medical insurance Branch approval) Blood-Gluco 2019-0 Yes [id number] Use BID, Univers se Meter 4-23 DX E11.9 ity of (ACCU-CHEK 00:00: (Brand [place] GUIDE 00 upon Medical GLUCOSE insurance Branch METER) Misc approval) ACCU-CHEK GUIDE Blood-Gluco 2018-0 1- No [id number] Use BID, Univers se Meter 23 05-19 DX E11.9 ity of (ACCU-CHEK 00:00: 00:00 [place] Medical GLUCOSE insurance Branch METER) Misc approval) ACCU-CHEK GUIDE Blood-Gluco 2018-0 2020- No [id number] Use BID, Univers se Meter 23 05-19 DX E11.9 ity of (ACCU-CHEK 00:00: 00:[place] :[place] upon Medical GLUCOSE insurance Branch METER) Misc approval) ACCU-CHEK GUIDE lactulose 2019-0 Yes [id number] 15mL Take 15 mL Univers 10 gram/15 4-08 by mouth 3 ity of mL solution 00:00: (three) [place] 00 times Medical daily. Branch lactulose 2019-0 Yes [id number] 15mL Take 15 mL Univers 10 gram/15 4-08 by mouth 3 ity of mL solution 00:00: (three) [place] 00 times Medical daily. Branch lactulose 2019-0 Yes [id number] 15mL Take 15 mL Univers 10 gram/15 4-08 by mouth 3 ity of mL solution 00:00: (three) [place] 00 times Medical daily. Branch lactulose 2019-0 Yes [id number] 15mL Take 15 mL Univers 10 gram/15 4-08 by mouth 3 ity of mL solution 00:00: (three) [place] 00 times Medical daily. Branch lactulose 2019-0 Yes [id number] 15mL Take 15 mL Univers 10 gram/15 4-08 by mouth 3 ity of mL solution 00:00: (three) [place] 00 times Medical daily. Branch lactulose 2019-0 Yes [id number] 15mL Take 15 mL Univers 10 gram/15 4-08 by mouth 3 ity of mL solution 00:00: (three) [place] 00 times Medical daily. Branch lactulose 2019-0 Yes [id number] 15mL Take 15 mL Univers 10 gram/15 4-08 by mouth 3 ity of mL solution 00:00: (three) [place] 00 times Medical daily. Branch lactulose 2019-0 Yes [id number] 15mL Take 15 mL Univers 10 gram/15 4-08 by mouth 3 ity of mL solution 00:00: (three) [place] 00 times Medical daily. Branch lactulose 2019-0 Yes [id number] 15mL Take 15 mL Univers 10 gram/15 4-08 by mouth 3 ity of mL solution 00:00: (three) [place] 00 times Medical daily. Branch lactulose 2019-0 Yes [id number] 15mL Take 15 mL Univers 10 gram/15 4-08 by mouth 3 ity of mL solution 00:00: (three) [place] 00 times Medical daily. Branch lactulose 2019-0 Yes [id number] 15mL Take 15 mL Univers 10 gram/15 4-08 by mouth 3 ity of mL solution 00:00: (three) [place] 00 times Medical daily. Branch lactulose 2019-0 Yes [id number] 15mL Take 15 mL Univers 10 gram/15 4-08 by mouth 3 ity of mL solution 00:00: (three) [place] 00 times Medical daily. Branch lactulose 2019-0 Yes [id number] 15mL Take 15 mL Univers 10 gram/15 4-08 by mouth 3 ity of mL solution 00:00: (three) [place] 00 times Medical daily. Branch furosemide 2019-0 Yes [id number] 40mg Take 1 Univers 40 mg 2-12 tablet by ity of tablet 00:00: mouth [place] 00 every Medical morning Branch and evening. furosemide 2019-0 Yes [id number] 40mg Take 1 [facility] 40 mg 2-12 tablet by ity of tablet 00:00: mouth [place] 00 every Medical morning Branch and evening. furosemide 2019-0 Yes [id number] 40mg Take 1 [facility] 40 mg 2-12 tablet by ity of tablet 00:00: mouth [place] 00 every Medical morning Branch and evening. furosemide 2019-0 Yes [id number] 40mg Take 1 [facility] 40 mg 2-12 tablet by ity of tablet 00:00: mouth [place] 00 every Medical morning Branch and evening. furosemide 2019-0 Yes [id number] 40mg Take 1 [facility] 40 mg 2-12 tablet by ity of tablet 00:00: mouth [place] 00 every Medical morning Branch and evening. furosemide 2019-0 Yes [id number] 40mg Take 1 [facility] 40 mg 2-12 tablet by ity of tablet 00:00: mouth [place] 00 every Medical morning Branch and evening. furosemide 2019-0 Yes [id number] 40mg Take 1 [facility] 40 mg 2-12 tablet by ity of tablet 00:00: mouth [place] 00 every Medical morning Branch and evening. furosemide 2019-0 Yes [id number] 40mg Take 1 [facility] 40 mg 2-12 tablet by ity of tablet 00:00: mouth [place] 00 every Medical morning Branch and evening. furosemide 2019-0 Yes [id number] 40mg Take 1 [facility] 40 mg 2-12 tablet by ity of tablet 00:00: mouth [place] 00 every Medical morning Branch and evening. furosemide 2019-0 Yes [id number] 40mg Take 1 [facility] 40 mg 2-12 tablet by ity of tablet 00:00: mouth [place] 00 every Medical morning Branch and evening. furosemide 2019-0 Yes [id number] 40mg Take 1 [facility] 40 mg 2-12 tablet by ity of tablet 00:00: mouth [place] 00 every Medical morning Branch and evening. furosemide 2019-0 Yes [id number] 40mg Take 1 [facility] 40 mg 2-12 tablet by ity of tablet 00:00: mouth [place] 00 every Medical morning Branch and evening. furosemide 2019-0 Yes [id number] 40mg Take 1 Univers 40 mg 2-12 tablet by ity of tablet 00:00: mouth [place] 00 every Medical morning Branch and evening. metFORMIN 2018-2020- No 500mg Take [address] [facility] [address] (GLUCOPHAGE 2-12 04-06 [facility] ) 500 MG 00:00: 00:00 mouth 2 Medic al tablet 00 :00 (two) Center times daily with breakfast and dinner . lisinopril 2019-0 Yes [id number] 20mg Take 1 [facility] 20 mg 2-06 tablet by ity of tablet 00:00: mouth [place] 00 daily. Medical Branch lisinopril 2019-0 Yes [id number] 20mg Take 1 [facility] 20 mg 2-06 tablet by ity of tablet 00:00: mouth [place] 00 daily. Medical Branch lisinopril 2019-0 Yes [id number] 20mg Take 1 Univers 20 mg 2-06 tablet by ity of tablet 00:00: mouth [place] 00 daily. Medical Branch lisinopril 2019-0 Yes [id number] 20mg Take 1 Univers 20 mg 2-06 tablet by ity of tablet 00:00: mouth [place] 00 daily. [facility] Branch lisinopril 2018-0 Yes [id number] 20mg Take 1 Univers 20 mg 2-06 tablet by ity of tablet 00:00: mouth [place] 00 daily. [facility] Branch lisinopril 2018-0 Yes [id number] 20mg Take 1 Univers 20 mg 2-06 tablet by ity of tablet 00:00: mouth [place] 00 daily. [facility] Branch lisinopril 2018-0 Yes [id number] 20mg Take 1 Univers 20 mg 2-06 tablet by ity of tablet 00:00: mouth [place] 00 daily. [facility] Branch lisinopril 0 Yes [id number] 20mg Take 1 Univers 20 mg 2-06 tablet by ity of tablet 00:00: mouth [place] 00 daily. [facility] lisinopril Yes [id number] 20mg Take 1 Univers 20 mg 2-06 tablet by ity of tablet 00:00: mouth [place] 00 daily. [facility] lisinopril Yes [id number] 20mg Take 1 Univers 20 mg 2-06 tablet by ity of tablet 00:00: mouth [place] 00 daily. [facility] Branch lisinopril 0 Yes [id number] 20mg Take 1 Univers 20 mg 2-06 tablet by ity of tablet 00:00: mouth [place] 00 daily. [facility] lisinopril 0 Yes [id number] 20mg Take 1 Univers 20 mg 2-06 tablet by ity of tablet 00:00: mouth [place] 00 daily. [facility] Branch lisinopril 0 Yes [id number] 20mg Take 1 Univers 20 mg 2-06 tablet by ity of tablet 00:00: mouth [place] 00 daily. [facility] Branch carvedilol Yes 6.25mg Take 6.[address] [facility] (COREG) 2-06 mg [facility] 3.125 MG 00:00: mouth 2 Medica l tablet 00 (two) Center times daily with breakfast and dinner . lisinopril 0 Yes 20mg QD Take [address] (PRINIVIL,Z 2-06 by mouth Luke [facility] ESTRIL) 20 00:00: daily . Medi jeevan MG tablet 00 [place] carvedilol Yes 6.25mg Take 6.[address] [facility] (COREG) 2-06 mg [facility] 3.125 MG 00:00: mouth 2 Medica l tablet 00 (two) Center times daily with breakfast and dinner . lisinopril 2019-0 Yes 20mg QD Take [address] (PRINIVIL,Z 2-06 by mouth Luke s ESTRIL) 20 00:00: daily . Medi jeevan MG tablet 00 [place] carvedilol 2019-0 Yes 6.25mg Take 6.[address] [facility] (COREG) 2-06 mg [facility] 3.125 MG 00:00: mouth 2 Medica l tablet 00 (two) Center times daily with breakfast and dinner . lisinopril 2019-0 Yes 20mg QD Take [address] (PRINIVIL,Z 2-06 by mouth Luke s ESTRIL) 20 00:00: daily . Medi jeevan MG tablet 00 [place] carvedilol 0 Yes 6.25mg Take 6.[address] [facility] (COREG) 2-06 mg [facility] 3.125 MG 00:00: mouth 2 Medica l tablet 00 (two) Center times daily with breakfast and dinner . lisinopril 2019-0 Yes 20mg QD Take [address] (PRINIVIL,Z 2-06 by mouth Luke s ESTRIL) 20 00:00: daily . Medi jeevan MG tablet 00 [place] carvedilol 2019-0 Yes 6.25mg Take 6.[address] [facility] (COREG) 2-06 mg [facility] 3.125 MG 00:00: mouth 2 Medica l tablet 00 (two) Center times daily with breakfast and dinner . lisinopril 2019-0 Yes 20mg QD Take [address] (PRINIVIL,Z 2-06 by mouth Luke s ESTRIL) 20 00:00: daily . Medi jeevan MG tablet 00 [place] carvedilol 2019-0 Yes 6.25mg Take 6.[address] [facility] (COREG) 2-06 mg [facility] 3.125 MG 00:00: mouth 2 Medica l tablet 00 (two) Center times daily with breakfast and dinner . lisinopril 2019-0 Yes 20mg QD Take [address] (PRINIVIL,Z 2-06 by mouth Luke s ESTRIL) 20 00:00: daily . Medi jeevan MG tablet 00 [place] pantoprazol 2019-0 Yes 40mg QD Take 40 [...] jeevan 40 MG 00 Center tablet pantoprazol [id number] Yes 40mg QD Take [address] [facility] e 1-09 by mouth [facility] (PROTONIX) 00:00: daily . Medi jeevan 40 MG 00 Center tablet pantoprazol 0 Yes 40mg QD Take [address] [facility] e 1-09 by [facility] (PROTONIX) 00:00: daily . Medi jeevan 40 MG 00 Center tablet pantoprazol 0 Yes 40mg QD Take [address] [facility] 1-09 by [facility] (PROTONIX) 00:00: daily . Medi jeevan 40 MG 00 Center tablet hydrOXYzine 2017-05 Yes 50mg Take [address] [facility] (ATARAX) 50 1-14 by mouth Luke s MG tablet 00:00: as needed Med ical 00 . [place] hydrOXYzine 2017-05 Yes 50mg Take [address] [facility] (ATARAX) 50 1-14 by mouth Luke s MG tablet 00:00: as needed Med ical 00 . [place] hydrOXYzine 2017-05 Yes 50mg Take [address] [facility] (ATARAX) 50 1-14 by mouth Luke s MG tablet 00:00: as needed Med ical 00 . [place] hydrOXYzine 2017-05 Yes 50mg Take [address] [facility] (ATARAX) 50 1-14 by mouth Luke s MG tablet 00:00: as needed Med ical 00 . [place] hydrOXYzine 2017-05 Yes 50mg Take [address] [facility] (ATARAX) 50 1-14 by mouth Luke s MG tablet 00:00: as needed Med ical 00 . [place] hydrOXYzine 2017-05 Yes 50mg Take [address] [facility] (ATARAX) 50 1-14 by mouth Luke s MG tablet 00:00: as needed Med ical 00 . [place] traMADol Yes Recurrent 50mg Take 1 [facility] [...] for Pain. No known No Univers medications [facility] No known No Univers medications [facility] Immunizations Ordered Filled Immunization Date Status Comments [facility] e Immunization Name Name SARS-COV-2 COVID-19 2021-02-05 Completed Unive rsity of PFIZER VACCINE 00:00:00 [facility] SARS-COV-2 COVID-19 2021-02-05 Completed Unive rsity of PFIZER VACCINE 00:00:00 [facility] SARS-COV-2 COVID-19 2021-02-05 Completed Unive rsity of PFIZER VACCINE 00:00:00 [facility] SARS-COV-2 COVID-19 2021-02-05 Completed Unive rsity of PFIZER VACCINE 00:00:00 [facility] SARS-COV-2 COVID-19 2021-02-05 Completed Unive rsity of PFIZER VACCINE 00:00:00 [facility] SARS-COV-2 COVID-19 2021-02-05 Completed Unive rsity of PFIZER VACCINE 00:00:00 [facility] SARS-COV-2 COVID-19 2021-02-05 Completed Unive rsity of PFIZER VACCINE 00:00:00 [facility] Covid-19 Vaccine 2020-07-[address] [facility] [facility] [...] MRNA (PF) 12yr+ 00:00:00 Medical C enter (Pfizer/[employer])(I [id number]) Influenza 2020-06-[address] [facility] Antibiotic Free PF 00:00:00 [facility] IM ([id number]) Influenza 2020-06-[address] [facility] Antibiotic Free PF 00:00:00 [facility] IM ([id number]) Influenza 2020-06-[address] [facility] Antibiotic Free PF 00:00:00 [facility] IM ([id number]) Influenza 2020-06-[address] [facility] Antibiotic Free PF 00:00:00 [facility] IM ([id number]) Influenza 2020-06-[address] [facility] Antibiotic Free PF 00:[facility]:00 [facility] ([id number]) Influenza 2020-06-[address] [facility] Antibiotic Free PF 00:00:00 [facility] ([id number]) Pneumococcal 2018-10-[address] [facility] Conjugate (Prevnar) 00:00:00 [facility] 13-Valent Pneumococcal 2018-10-[address] [facility] Conjugate (Prevnar) 00:00:00 [facility] 13-Valent Pneumococcal 2018-10-[address] [facility] Conjugate (Prevnar) 00:00:00 [facility] 13-Valent Pneumococcal 2018-10-[address] [facility] Conjugate (Prevnar) 00:00:00 [facility] 13-Valent Pneumococcal 2018-10-[address] [facility] Conjugate (Prevnar) 00:00:00 [facility] 13-Valent Pneumococcal 2018-10-[address] [facility] Conjugate (Prevnar) 00:00:00 [facility] Influenza Four-QIV 2018-04-[address] [facility] PF 3+YR IM 00:00:[address] [facility] Influenza Four-QIV 2018-04-[address] [facility] PF 3+YR IM 00:00:[address] [facility] Influenza Four-QIV 2018-04-[address] [facility] PF 3+YR IM 00:00:[address] [facility] Influenza Four-QIV 2018-04-[address] [facility] PF 3+YR IM 00:00:[address] [facility] Influenza Four-QIV 2018-04-[address] [facility] PF 3+YR IM 00:00:[address] [facility] Influenza Virus 2018-04-11 Completed Universit y of Vaccine Quad IM 3+ 00:00:00 [facility] Influenza Virus 2018-04-11 Completed Universit y of Vaccine Quad IM 3+ 00:00:00 [facility] Influenza Virus 2018-04-11 Completed Universit y of Vaccine Quad IM 3+ 00:00:00 [facility] Influenza Virus 2018-04-11 Completed Universit y of Vaccine Quad IM 3+ 00:00:00 [facility] Influenza Virus 2018-04-11 Completed Universit y of Vaccine Quad IM 3+ 00:00:00 [facility] Influenza Virus 2018-04-11 Completed Universit y of Vaccine Quad IM 3+ 00:00:00 [facility] Influenza Virus 2018-04-11 Completed Universit y of Vaccine Quad IM 3+ 00:00:00 [facility] Influenza Virus 2018-04-11 Completed Universit y of Vaccine Quad IM 3+ 00:00:00 [facility] Influenza Virus 2018-04-11 Completed Universit y of Vaccine Quad IM 3+ 00:00:00 [facility] Influenza Virus 2018-04-11 Completed Universit y of Vaccine Quad IM 3+ 00:00:00 [facility] Influenza Virus 2018-04-11 Completed Universit y of Vaccine Quad IM 3+ 00:00:00 [facility] Influenza Virus 2018-04-11 Completed Universit y of Vaccine Quad IM 3+ 00:00:00 [facility] Influenza Virus 2018-04-11 Completed Universit y of Vaccine Quad IM 3+ 00:00:00 [facility] Influenza Virus 2018-04-11 Completed Universit y of Vaccine Quad IM 3+ 00:00:00 [facility] Influenza Virus 2018-04-11 Completed Universit y of Vaccine Quad IM 3+ 00:00:00 [facility] Influenza Virus 2018-04-11 Completed Universit y of Vaccine Quad IM 3+ 00:00:00 [facility] Influenza Virus 2018-04-11 Completed Universit y of Vaccine Quad IM 3+ 00:00:00 [facility] Influenza Virus 2018-04-11 Completed Universit y of Vaccine Quad IM 3+ 00:00:00 [facility] Influenza Virus 2018-04-11 Completed Universit y of Vaccine Quad IM 3+ 00:00:00 [facility] Influenza Virus 2018-04-11 Completed Universit y of Vaccine Quad IM 3+ 00:00:00 [facility] Influenza Virus 2018-04-11 Completed Universit y of Vaccine Quad IM 3+ 00:00:00 [facility] Influenza Virus 2018-04-11 Completed Universit y of Vaccine Quad IM 3+ 00:00:00 [facility] Influenza Virus 2018-04-11 Completed Universit y of Vaccine Quad IM 3+ 00:00:00 [facility] Influenza Virus 2018-04-11 Completed Universit y of Vaccine Quad IM 3+ 00:00:00 [facility] Influenza Virus 2018-04-11 Completed Universit y of Vaccine Quad IM 3+ 00:00:00 [facility] Influenza Virus 2018-04-11 Completed Universit y of Vaccine Quad IM 3+ 00:00:00 [facility] Influenza Virus 2018-04-11 Completed Universit y of Vaccine Quad IM 3+ 00:00:00 [facility] Influenza Virus 2018-04-11 Completed Universit y of Vaccine Quad IM 3+ 00:00:00 [facility] Influenza Virus 2018-04-11 Completed Universit y of Vaccine Quad IM 3+ 00:00:00 [facility] Influenza Virus 2018-04-11 Completed Universit y of Vaccine Quad IM 3+ 00:00:00 [facility] Influenza Virus 2018-04-11 Completed Universit y of Vaccine Quad IM 3+ 00:00:00 [facility] Influenza Four-QIV 2018-04-[address] [facility] PF 3+YR IM 00:00:00 Medical Center Td 7+ years, 2016-09-[address] [facility] (TDVAX) 2 Lf tetaus 00:00:00 [facility] Center toxoid preservative free Td 7+ years, [...] Cent er tetanus toxoid preservative free Td 2016-09-18 Completed University of 00:00:00 [facility] Td 2016-09-18 Completed University of 00:00:00 [facility] Td 2016-09-18 Completed University of 00:00:00 [facility] Td 2016-09-18 Completed University of 00:00:00 [facility] Td 2016-09-18 Completed University of 00:00:00 [facility] Td 2016-09-18 Completed University of 00:00:00 [facility] Td 2016-09-18 Completed University of 00:00:00 [facility] Branch Td 2016-09-18 Completed University of 00:00:00 [facility] Td 2016-09-18 Completed University of 00:00:00 [facility] Td 2016-09-18 Completed University of 00:00:00 [facility] Td 2016-09-18 Completed University of 00:00:00 [facility] Branch Td 2016-09-18 Completed University of 00:00:00 [facility] Td 2016-09-18 Completed University of 00:00:00 [facility] Td 2016-09-18 Completed University of 00:00:00 [facility] Td 2016-09-18 Completed University of 00:00:00 [facility] Td 2016-09-18 Completed University of 00:00:00 [facility] Td 2016-09-18 Completed University of 00:00:00 [facility] Branch Td 2016-09-18 Completed University of 00:00:00 [facility] Branch Td 2016-09-18 Completed University of 00:00:00 [facility] Td 2016-09-18 Completed University of 00:00:00 [facility] Td 2016-09-18 Completed University of 00:00:00 [facility] Td 2016-09-18 Completed University of 00:00:00 [facility] Td 2016-09-18 Completed University of 00:00:00 [facility] Td 2016-09-18 Completed University of 00:00:00 [facility] Td 2016-09-18 Completed University of 00:00:00 [facility] Branch Td 2016-09-18 Completed University of 00:00:00 [facility] Td 2016-09-18 Completed University of 00:00:00 [facility] Td 2016-09-18 Completed University of 00:00:00 [facility] Td 2016-09-18 Completed University of 00:00:00 [facility] Td 2016-09-18 Completed University of 00:00:00 [facility] Td 2016-09-18 Completed University of 00:00:00 [facility] Td 2016-09-18 Completed University of 00:00:00 [facility] Td 2016-09-18 Completed University of 00:00:00 [facility] Td 7+ years, 2016-09-[address] [facility] (TDVAX) 2 Lf 00:00:00 Medical Cent er tetanus toxoid preservative free Vital Signs Vital Name Observation Time Observation Value Comments Source HEIGHT 2019-12-24 167.6 cm 00:00:00 WEIGHT 2019-12-24 103 kg 00:00:00 HEIGHT 2022-06-01 167.6 cm 09:55:00 WEIGHT 2022-06-01 110.859 kg 09:55:00 HEIGHT 2022-06-01 167.6 cm 09:55:00 WEIGHT 2022-06-01 110.859 kg 09:55:00 Systolic blood 2021-12-26 150 mm[Hg] University of pressure 20:38:00 [facility] Diastolic blood 2021-12-26 79 mm[Hg] University o f pressure 20:38:00 [facility] Heart rate 2021-12-26 104 /min University of 20:38:00 [facility] Body temperature 2021-12-26 38.06 Corrina University of 20:38:00 [facility] Respiratory rate 2021-12-26 18 /min University of 20:38:00 [facility] Body height 2021-12-26 167.6 cm University of 20:38:00 [facility] Body weight 2021-12-26 108.863 kg University of 20:38:00 [facility] BMI 2021-12-26 38.74 kg/m2 University of 20:38:00 [facility] Oxygen saturation 2021-12-26 99 /min [facility] Arterial blood 20:38:00 [facility] by Pulse oximetry [place] HEIGHT 2021-12-22 167.6 cm 10:36:00 WEIGHT 2021-12-22 [...] 2021-04-01 119 mm[Hg] University of pressure 20:00:00 [facility] Diastolic blood 2021-04-01 65 mm[Hg] University o f pressure 20:00:00 [facility] Heart rate 2021-04-01 57 /min University of 20:00:00 [facility] Respiratory rate 2021-04-01 16 /min University of 20:00:00 [facility] Oxygen saturation 2021-04-01 100 /min Simultaneous [facility] in Arterial blood 20:00:00 filing. User may [facility] by Pulse oximetry not have seen Branch previous data. Body temperature 2021-04-01 36.22 Corrina University of 18:07:00 [facility] Body height 2021-04-01 166 cm University of 18:07:00 [facility] Body weight 2021-04-01 104.327 kg University of 18:07:00 [facility] BMI 2021-04-01 37.86 kg/m2 University of 18:07:00 [facility] HEIGHT 2021-03-12 167.6 cm 07:20:00 WEIGHT [...] 2020-08-19 132 mm[Hg] University of pressure 14:00:00 [facility] Diastolic blood 2020-08-19 77 mm[Hg] University o f pressure 14:00:00 [facility] Heart rate 2020-08-19 71 /min University 14:00:00 [facility] Respiratory rate 2020-08-19 18 /min [facility] 14:00:00 [facility] Oxygen saturation 2020-08-19 99 /min [facility] in Arterial blood 14:00:00 [facility] by Pulse oximetry [place] Body temperature 2020-08-19 36.94 Corrina [facility] 12:32:00 [facility] Body weight 2020-08-19 106.142 kg University 12:32:00 [facility] BMI 2020-08-19 37.77 kg/m2 University of 12:32:00 [facility] Systolic blood 2020-08-19 132 mm[Hg] University of pressure 14:00:00 [facility] Diastolic blood 2020-08-19 77 mm[Hg] University o f pressure 14:00:00 [facility] Heart rate 2020-08-19 71 /min University of 14:00:00 [facility] Respiratory rate 2020-08-19 18 /min [facility] of 14:00:00 [facility] Oxygen saturation 2020-08-19 99 /min University of in Arterial blood 14:00:00 [facility] by Pulse oximetry Branch Body temperature 2020-08-19 36.94 Corrina University of 12:32:00 [facility] Body weight 2020-08-19 106.142 kg University of 12:32:00 [facility] BMI 2020-08-19 37.77 kg/m2 University of 12:32:00 [facility] Systolic blood 2020-06-26 120 mm[Hg] University of pressure 03:00:00 [facility] Diastolic blood 2020-06-26 103 mm[Hg] University o f pressure 03:00:00 [facility] Heart rate 2020-06-26 83 /min University of 03:00:00 [facility] Respiratory rate 2020-06-26 20 /min University of 03:00:00 [facility] Oxygen saturation 2020-06-26 99 /min University of in Arterial blood 03:00:00 [facility] by Pulse oximetry Branch Body temperature 2020-06-25 36.44 Corrina University of 23:03:00 [facility] Body height 2020-06-25 167.6 cm University of 23:03:00 [facility] Body weight 2020-06-25 105.235 kg University of 23:03:00 [facility] BMI 2020-06-25 37.45 kg/m2 University of 23:03:00 [facility] Systolic blood 2020-06-26 120 mm[Hg] University of pressure 03:00:00 [facility] Diastolic blood 2020-06-26 103 mm[Hg] University o f pressure 03:00:00 [facility] Heart rate 2020-06-26 83 /min University of 03:00:00 [facility] Respiratory rate 2020-06-26 20 /min [facility] of 03:00:00 [facility] Oxygen saturation 2020-06-26 99 /min University of in Arterial blood 03:00:00 [facility] by Pulse oximetry [facility] Body temperature 2020-06-25 36.44 Corrina University of 23:03:00 [facility] Body height 2020-06-25 167.6 cm University 23:03:00 [facility] Body weight 2020-06-25 105.235 kg University 23:03:00 [facility] BMI 2020-06-25 37.45 kg/m2 University of 23:03:00 [facility] HEIGHT 2020-03-13 167.6 cm 10:38:00 WEIGHT 2020-03-13 108.41 kg 10:38:00 HEIGHT 2020-03-13 167.6 cm 10:38:00 WEIGHT 2020-03-13 108.41 kg 10:38:00 HEIGHT 2019-12-24 167.6 cm 00:00:00 WEIGHT 2019-12-24 103 kg 00:00:00 Systolic blood 2019-01-21 131 mm[Hg] University of pressure 21:03:00 [facility] Diastolic blood 2019-01-21 79 mm[Hg] University o f pressure 21:03:00 [facility] Heart rate 2019-01-21 73 /min [facility] 21:03:00 [facility] Body temperature 2019-01-21 37.06 Corrina [facility] 21:03:00 [facility] Respiratory rate 2019-01-21 18 /min University 21:03:00 [facility] Body weight 2019-01-21 103.103 kg University 21:03:00 [facility] BMI 2019-01-21 36.69 kg/m2 University of 21:03:00 [facility] Oxygen saturation 2019-01-21 98 /min University of in Arterial blood 21:03:00 [place] [facility] by Pulse oximetry [facility] Systolic blood 2019-01-21 131 mm[Hg] University of pressure 21:03:00 [facility] Diastolic blood 2019-01-21 79 mm[Hg] University o f pressure 21:03:00 [facility] Heart rate 2019-01-21 73 /min University 21:03:00 [facility] Body temperature 2019-01-21 37.06 Corrina [facility] 21:03:00 [facility] Respiratory rate 2019-01-21 18 /min [facility] of 21:03:00 [facility] Body weight 2019-01-21 103.103 kg [facility] 21:03:00 [facility] BMI 2019-01-21 36.69 kg/m2 [facility] 21:03:00 [facility] Oxygen saturation 2019-01-21 98 /min [facility] in Arterial blood 21:03:00 [facility] by Pulse oximetry Branch Systolic blood 2022-06-01 135 mm[Hg] [facility] pressure 09:55:[address] [facility] Diastolic blood 2022-06-01 77 mm[Hg] [facility] pressure 09:55:[address] [facility] Heart rate 2022-06-01 66 /min [facility] 09:55:[address] [facility] Body temperature 2022-06-[address] [facility] 09:[facility]:[address] [facility] Respiratory rate 2022-06-01 18 /min [facility] 09:55:[address] [facility] Body height 2022-06-[address] [facility] 09:55:[address] [facility] Body weight 2022-06-[address] [facility] 09:55:[address] [facility] BMI 2022-06-01 39.45 kg/m2 [facility] 09[facility]55:[address] [facility] Oxygen saturation 2022-06-01 97 /min [facility] in Arterial blood 09:55:00 [facility] nter by Pulse oximetry Systolic blood 2021-12-22 150 mm[Hg] [facility] pressure 10:36:[address] [facility] Diastolic blood 2021-12-22 76 mm[Hg] [facility] pressure 10:36:[address] [facility] Heart rate 2021-12-22 75 /min [facility] 10:36:[address] [facility] Body temperature 2021-12-[address] [facility] 10:36:[address] [facility] Respiratory rate 2021-12-22 18 /min [facility] 10:36:[address] [facility] Body height 2021-12-[address] [facility] 10:36:[address] [facility] Body weight 2021-12-[address] [facility] 10:36:[address] [facility] BMI 2021-12-22 39.92 kg/m2 [facility] 10:36:[address] [facility] Oxygen saturation 2021-12-22 98 /min [facility] in Arterial blood 10:36:00 Medical Ce nter by Pulse oximetry Systolic blood 2021-03-12 107 mm[Hg] [facility] pressure 14:30:[address] [facility] Diastolic blood 2021-03-12 58 mm[Hg] [facility] pressure 14:30:[address] [facility] Heart rate 2021-03-12 61 /min [facility] 14[facility]30:[address] [facility] Respiratory rate 2021-03-12 18 /min [facility] s 13:30:[address] [facility] Oxygen saturation 2021-03-12 94 /min [facility] in Arterial blood 13:30:00 Medical Ce nter by Pulse oximetry Body temperature 2021-03-12 36.56 Corrina [facility] s 12:02:[address] [facility] Body height 2021-03-12 [facility]6 [facility] [facility] Body weight 2021-03-12 102.059 [facility] BMI 2021-03-12 36.32 kg/m2 [facility] 07:20:[address] [facility] Procedures Procedure Date / Time Performing Clinician Source Performed CT CHEST WITHOUT IV 2022-05-18 12:02:00 Amberly Washington [facility] CONTRAST Center MR ABDOMEN WITH & WITHOUT 2022-05-18 11:40:00 Amberly Washington [facility] IV CONTRAST Center ALPHA FETOPROTEIN (AFP), 2022-05-18 09:45:00 Amberly Washington [facility] TUMOR MARKER Center BASIC METABOLIC PANEL 2022-05-18 09:45:00 Amberly Washington [facility] CBC W/PLT COUNT & AUTO 2022-05-18 09:45:00 Amberly Washington [facility] DIFFERENTIAL Center HEPATIC FUNCTION PANEL 2022-05-18 09:45:00 Amberly Washington [facility] PROTHROMBIN TIME/INR 2022-05-18 09:45:00 Amberly Washington CH I [facility] CBC W/PLT COUNT & AUTO 2022-05-18 09:45:00 Amebrly Washington [facility] DIFFERENTIAL Center CBC W/PLT COUNT & AUTO 2022-01-07 14:53:00 Amberly Washington [facility] DIFFERENTIAL Center IRON, TIBC, % SAT. 2022-01-07 14:53:00 Amberly Washington [facility] (WITHOUT FERRITIN) Center FERRITIN 2022-01-07 14:53:00 Amberly Washington [facility] PLATELET ESTIMATION 2022-01-07 14:53:00 Amberly Washington [facility] MR BRAIN WITH & WITHOUT IV 2022-01-04 14:14:00 Amberly Washington [facility] CONTRAST Center CT HEAD WO CONTRAST 2021-12-26 22:35:08 Felisha Quintana [facility] BASIC METABOLIC PANEL (NA, 2021-12-26 21:33:00 Felisha Quintana [facility] K, CL, CO2, GLUCOSE, BUN, Medica l Branch CREATININE, CA) CBC WITH DIFF 2021-12-26 21:33:00 Felisha Quintana [facility] URINALYSIS 2021-12-26 21:33:00 Felisha Quintana [facility] COVID-19 (ID NOW RAPID 2021-12-26 20:48:00 Felisha Quintana [facility] TESTING) Medical Branch CONSENT/REFUSAL FOR 2021-12-26 20:32:58 Doctor Unassigned, [facility] DIAGNOSIS AND TREATMENT [place] [facility] BASIC METABOLIC PANEL 2021-12-22 12:08:00 Amberly Washington [facility] CBC W/PLT COUNT & AUTO 2021-12-22 12:08:00 Amberly Washington [facility] HEPATIC FUNCTION PANEL 2021-12-22 12:08:00 Amberly Washington [facility] PROTHROMBIN TIME/INR 2021-12-22 12:08:00 Amberly Washington I [facility] CBC W/PLT COUNT & AUTO 2021-12-22 12:08:00 Amberly Washington [facility] DIFFERENTIAL Center ALPHA FETOPROTEIN (AFP), 2021-12-06 13:43:00 Amberly Washington [facility] TUMOR MARKER Center BASIC METABOLIC PANEL 2021-12-06 13:43:00 Amberly Washington [facility] CBC W/PLT COUNT & AUTO 2021-12-06 13:43:00 Amberly Washington [facility] HEPATIC FUNCTION PANEL 2021-12-06 13:43:00 Amberly Washington [facility] PROTHROMBIN TIME/INR 2021-12-06 13:43:00 Amberly Washington CH [facility] CBC W/PLT COUNT & AUTO 2021-12-06 13:43:00 Amberly Washington [facility] MR ABDOMEN WITH & WITHOUT 2021-12-06 12:08:00 Amberly Washington [facility] IV CONTRAST Center MR METASTATIC SKELETAL 2021-12-06 11:10:00 Amberly Washington [facility] STUDY Center CT CHEST WITHOUT IV 2021-12-06 10:40:00 Amberly Washington [facility] CONTRAST Center MR ABDOMEN WITH & WITHOUT 2021-08-26 10:40:00 mAberly Washington [facility] IV CONTRAST Center CT CHEST WITHOUT IV 2021-08-26 10:00:00 Amberly Washington [facility] CONTRAST Center ALPHA FETOPROTEIN (AFP), 2021-08-26 08:27:00 Amberly Washington [facility] TUMOR MARKER Center BASIC METABOLIC PANEL 2021-08-26 08:27:00 Amberly Washington [facility] CBC W/PLT COUNT & AUTO 2021-08-26 08:27:00 Amberly Washington [facility] HEPATIC FUNCTION PANEL 2021-08-26 08:27:00 Amberly Washington [facility] PROTHROMBIN TIME/INR 2021-08-26 08:27:00 Amberly Washington [facility] CBC W/PLT COUNT & AUTO 2021-08-26 08:27:00 Amberly Washington [facility] HEREDITARY HEMOCHROMATOSIS 2021-08-26 08:24:00 Amberly Washington [facility] COMPREHENSIVE METABOLIC 2021-08-03 11:34:00 Amberly Washington [facility] PANEL Center ALPHA FETOPROTEIN (AFP), 2021-08-03 11:34:00 Amberly Washington [facility] TUMOR MARKER [place] PROTHROMBIN TIME/INR 2021-08-03 11:34:00 Amberly Washignton [facility] CBC W/PLT COUNT & AUTO 2021-08-03 11:34:00 Amberly Washington [facility] NM BONE SCAN WHOLE BODY 2021-04-29 13:03:00 Amberly Washington [facility] MR ABDOMEN WITH & WITHOUT 2021-04-29 11:48:00 Amberly Washington [facility] IV CONTRAST Center CT CHEST WITHOUT IV 2021-04-29 10:31:00 Amberly Washington [facility] CONTRAST [place] ALPHA FETOPROTEIN (AFP), 2021-04-29 09:09:00 Amberly Washington [facility] TUMOR MARKER Center BASIC METABOLIC PANEL 2021-04-29 09:09:00 Amberly Washington [facility] CBC W/PLT COUNT & AUTO 2021-04-29 09:09:00 Amberly Washington [facility] HEPATIC FUNCTION PANEL 2021-04-29 09:09:00 Amberly Washington [facility] PROTHROMBIN TIME/INR 2021-04-29 09:09:00 Amberly Washington [facility] CBC W/PLT COUNT & AUTO 2021-04-29 09:09:00 Amberyl Washington [facility] TROPONIN I 2021-04-01 19:14:00 Singer [facility] COMP. METABOLIC PANEL 2021-04-01 19:14:00 Chandrakant Garrett [facility] ([id number]) Medical Branch AMMONIA, PLASMA 2021-04-01 19:12:00 Singer [facility] CBC WITH DIFF 2021-04-01 19:12:00 Singer [facility] XR CHEST 1 VW 2021-04-01 18:51:09 Singer [facility] URINALYSIS 2021-04-01 18:40:00 Singer [facility] PROTHROMBIN TIME / INR 2021-04-01 18:30:00 Chandrakant Garrett [facility] CONSENT/REFUSAL FOR 2021-04-01 17:58:35 Doctor Unassigned [facility] DIAGNOSIS AND TREATMENT [place] [facility] IR EMBOLIZATION ARTERIAL 2021-03-12 12:05:00 Amberly Washington [facility] BASIC METABOLIC PANEL (7) 2021-03-12 07:01:00 Anne-Marie More CH I [facility] HEPATIC FUNCTION PANEL 2021-03-12 07:01:00 Anne-Marie More [facility] CBC W/PLT COUNT & AUTO 2021-03-12 07:01:00 Anne-Marie More [facility] PROTHROMBIN TIME/INR 2021-03-12 07:01:00 Anne-Marie More [facility] CBC W/PLT COUNT & AUTO 2021-03-12 07:01:00 Anne-Marie More [facility] DIFFERENTIAL [facility] CBC W/PLT COUNT & AUTO 2021-02-23 10:05:00 Aicha Roman [facility] [place] PROTHROMBIN TIME/INR 2021-02-23 10:05:00 [facility] [place] APTT 2021-02-23 10:05:00 Aicha Roman [facility] BASIC METABOLIC PANEL (7) 2021-02-23 10:05:00 Aicha Roman [facility] HEPATIC FUNCTION PANEL 2021-02-23 10:05:00 Aicha Roman [facility] CBC W/PLT COUNT & AUTO 2021-02-23 10:05:00 Aicha Roman [facility] DIFFERENTIAL [place] SARS-COV-2 COVID-19 2021-02-05 15:47:55 Doctor Unassigned, [facility] VACCINE,0.3ML,IM (PFIZER) [place] [facility] MR ABDOMEN WITH & WITHOUT 2021-01-21 12:00:00 Amberly Washington [facility] IV CONTRAST Center CT CHEST WITHOUT IV 2021-01-21 10:45:00 Amberly Washington [facility] CONTRAST Center ALPHA FETOPROTEIN (AFP), 2021-01-21 10:02:00 Amberly Washington [facility] TUMOR MARKER Center BASIC METABOLIC PANEL (7) 2021-01-21 10:02:00 Amberly [facility] CBC W/PLT COUNT & AUTO 2021-01-21 10:02:00 Amberly Washington [facility] HEPATIC FUNCTION PANEL 2021-01-21 10:02:00 Amberly Washington [facility] PROTHROMBIN TIME/INR 2021-01-21 10:02:00 Amberly Washington [facility] HEPATITIS C PCR, 2021-01-21 10:02:00 Amberly Washington [facility] QUANTITATIVE Center CBC W/PLT COUNT & AUTO 2021-01-21 10:02:00 Amberly Washington [facility] IR EMBOLIZATION ARTERIAL 2020-11-26 12:27:00 Amberly Washington [facility] BASIC METABOLIC PANEL (7) 2020-11-26 08:28:[address] [facility] [place]on [place] HEPATIC FUNCTION PANEL 2020-11-26 08:28:00 [facility] AUTO 2020-11-26 08:28[facility] PROTHROMBIN TIME/INR 2020-11-26 08:28:00 [facility] 2020-11-26 08:28:00 [facility] CBC W/PLT COUNT & AUTO 2020-11-26 08:28[facility]OLIC PANEL (7) 2020-10-28 10:55:00 Amberly Washington [facility] HEPATIC FUNCTION PANEL 2020-10-28 10:55:00 Amberly Washington [facility] CBC W/PLT COUNT & AUTO 2020-10-28 10:55:00 Amberly Washington [facility] PROTHROMBIN TIME/INR 2020-10-28 10:55:00 Amberly Washington [facility] HEPATITIS C PCR, 2020-10-28 10:55:00 Amberly Washington [facility] CBC W/PLT COUNT & AUTO 2020-10-28 10:55:00 Amberly Washington [facility] NM BONE SCAN WHOLE BODY 2020-10-08 14:02:00 Amberly Washington [facility] ALPHA FETOPROTEIN (AFP), 2020-10-08 10:54:00 Amberly Washington [facility] TUMOR MARKER Center BASIC METABOLIC PANEL (7) 2020-10-08 10:54:00 Amberly Washington [facility] CBC W/PLT COUNT & AUTO 2020-10-08 10:54:00 Amberly Washington [facility] HEPATIC FUNCTION PANEL 2020-10-08 10:54:00 Amberly Washington [facility] PROTHROMBIN TIME/INR 2020-10-08 10:54:00 Amberly Washington [facility] CBC W/PLT COUNT & AUTO 2020-10-08 10:54:00 Amberly Washington [facility] DIFFERENTIAL Center CT CHEST WITHOUT IV 2020-10-08 09:45:00 [facility] Amberly [facility] CONTRAST Center MR ABDOMEN WITH & WITHOUT 2020-09-01 14:15:[address] [facility] IV CONTRAST Center BASIC METABOLIC PANEL (7) 2020-09-01 13:15:00 MindogluAmadorse C [facility] Nikole [place] HEPATIC FUNCTION PANEL 2020-09-01 13:15:00 [facility] [place] CBC W/PLT COUNT & AUTO 2020-09-01 13:15:00 [facility] DIFFERENTIAL [place] PROTHROMBIN TIME/INR 2020-09-01 13:15:00 [facility] [place]ole [place] ALPHA FETOPROTEIN (AFP), 2020-09-01 13:15:[address] [facility] [address] TUMOR MARKER [place] Center CBC W/PLT COUNT & AUTO 2020-09-01 13:15:00 [facility] DIFFERENTIAL [place] XR CHEST 1 VW 2020-08-19 13:29:53 Wendy Bull [facility] HB ECG ROUTINE & RHYTHM 2020-08-19 13:05:46 [facility] 2020-08-19 13:01:00 Wendy Bull [facility] TROPONIN I 2020-08-19 13:01:00 Wendy Bull [facility] HEPATIC FUNCTION PANEL 2020-08-19 13:01:00 [id number] (ALB,T.PRO,BILI Medical Branch T,BU/BC,ALT,AST,ALK PHOS) BASIC METABOLIC PANEL (NA, 2020-08-19 13:01:00 Wendy Bull [facility] K, CL, CO2, GLUCOSE, BUN, Medica l Branch CREATININE, CA) CBC WITH DIFF 2020-08-19 13:01:00 Wendy Bull [facility] N-TERMINAL PRO-BNP 2020-08-19 13:01:00 Wendy Bull [facility] COVID-19 (ID NOW RAPID 2020-08-19 13:01:00 Wendy Bull [facility] TESTING) [facility] CONSENT/REFUSAL FOR 2020-08-19 12:21:55 Doctor Unassigned, [facility] DIAGNOSIS AND TREATMENT [place] [facility] AMMONIA, PLASMA 2020-06-26 01:01:00 [place] [facility] PROTHROMBIN TIME / INR 2020-06-26 01:01:00 [place] [facility] XR CHEST 1 VW 2020-06-25 23:46:19 [place] [facility] LIPASE 2020-06-25 23:43:00 [place] [facility] MAGNESIUM 2020-06-25 23:43:00 [place] [facility] TROPONIN I 2020-06-25 23:43:00 [place] [facility] HEPATIC FUNCTION PANEL 2020-06-25 23:43:00 [place] [facility] ([id number]) (ALB,T.PRO,BILI [facility] T,BU/BC,ALT,AST,ALK PHOS) BASIC METABOLIC PANEL (NA, 2020-06-25 23:43:00 [place] [facility] K, CL, CO2, GLUCOSE, BUN, Medica l Branch CREATININE, CA) CBC WITH DIFF 2020-06-25 23:43:00 [place] [facility] URINALYSIS 2020-06-25 23:43:00 [place] [facility] N-TERMINAL PRO-BNP 2020-06-25 23:43:00 [place] [facility] COVID-19 (ID NOW RAPID 2020-06-25 23:43:00 [facility]lina [facility] TESTING) [facility] [place] NOTICE OF PRIVACY 2020-06-25 22:41:45 Doctor Arboleda [facility] PRACTICES [place] [facility] [place] CONSENT/REFUSAL FOR 2020-06-25 22:41:29 Doctor Arboleda [facility] DIAGNOSIS AND TREATMENT [place] [facility] HOME HEALTH - OTHER 2019-02-08 05:01:00 Doctor Arboleda [facility] HEALTH - OTHER 2019-01-31 05:01:00 Doctor Arboleda [facility] POCT HEMOGLOBIN A1C TEST 2019-01-21 21:30:00 Brenda Rod [facility] DME/SUPPLY JUSTIFICATION 2019-01-17 05:01:00 Doctor Arboleda [facility] HEALTH - OTHER 2019-01-07 05:01:00 Doctor Arboleda [facility] HEALTH - OTHER 2019-01-02 05:01:00 Doctor Arboleda [facility] HEALTH - OTHER 2018-12-28 05:01:00 Doctor Arboleda [facility] INSURANCE CORRESPONDENCE 2018-12-17 05:01:00 Doctor Arboleda [facility] PATIENT QUESTIONNAIRE 2016-10-19 05:01:00 Doctor Arboleda [facility] SCANNED LAB RESULTS 2016-10-13 05:01:00 Doctor Arboleda [facility] Plan of Care Planned Activity Planned Date Details Comments Source Future Scheduled 2028-06-12 Screening for malignant [facility] Test 00:00:00 neoplasm of colon Medical Ce nter (procedure) [code = 984464243] Future Scheduled 2028-06-12 Screening for malignant [facility] Test 00:00:00 neoplasm of colon Medical Ce nter (procedure) [code = [id number]] Future Scheduled 2028-06-12 Screening for malignant [facility] Test 00:00:00 neoplasm of colon Medical Ce nter (procedure) [code = [id number]] Future Scheduled 2028-06-12 Screening for malignant [facility] Test 00:00:00 neoplasm of colon Medical Ce nter (procedure) [code = [id number]] Future Scheduled 2028-06-12 Screening for malignant [facility] Test 00:00:00 neoplasm of colon Medical Ce nter (procedure) [code = [id number]] Future Scheduled 2028-06-12 Screening for malignant [facility] Test 00:00:00 neoplasm of colon Medical Ce nter (procedure) [code = [id number]] Future Scheduled 2028-06-12 Screening for malignant [facility] Test 00:00:00 neoplasm of colon Medical Ce nter (procedure) [code = [id number]] Future Scheduled 2028-06-12 Screening for malignant [facility] Test 00:00:00 neoplasm of colon Medical Ce nter (procedure) [code = [id number]] Future Scheduled 2028-06-12 Screening for malignant [facility] Test 00:00:00 neoplasm of colon Medical Ce nter (procedure) [code = [id number]] Future Scheduled 2028-06-12 Screening for malignant [facility] Test 00:00:00 neoplasm of colon Medical Ce nter (procedure) [code = 294564704] Future Scheduled 2028-06-12 Screening for malignant [facility] 00:00:00 neoplasm of colon Medical Ce nter (procedure) [code = 205659103] Future Scheduled 2026-09-18 DTAP/TDAP/TD VACCINES [facility] I [...] (2 - Td or Tdap)] Future Scheduled 2022-05-[address] [facility] 00:00:00 (12+) [code = Medical Center DEPRESSION SCREENING (12+)] Future Scheduled 2022-05-29 FALLS RISK SCREENING [facility] 00:00:00 [code = FALLS RISK Medical C enter SCREENING] Future Scheduled 2022-03-[address] [facility] 00:00:00 Counseling and Medical Cente r Screening (12+) [code = Tobacco Cessation Counseling and Screening (12+)] Future Scheduled 2022-03-[address] [facility]:00 [code = 29060345] Medical Ce nter Future Scheduled 2021-12-20 Lipid panel (procedure) [facility] 00:00:00 [code = 30783699] Medical Ce nter Future Scheduled 2021-12-20 Lipid panel (procedure) [facility] 00:00:00 [code = 90947653] Medical Ce nter Future Scheduled 2021-12-20 Lipid panel (procedure) [facility] 00:00:00 [code = 56449910] Medical Ce nter Future Scheduled 2021-12-20 Lipid panel (procedure) [facility] 00:00:00 [code = 03742220] Medical Ce nter Future Scheduled 2021-12-20 Lipid panel (procedure) [facility] 00:00:00 [code = 43744434] Medical Ce nter Future Scheduled 2021 Imm [...] screening Medical C enter (procedure) [code = 234624740] Future Scheduled 2021 PNEUMOCOCCAL 65+ YRS ([address] [facility] 00:00:00 - PPSV23 or PCV20) Medical C enter [code = PNEUMOCOCCAL 65+ YRS (2 - PPSV23 or PCV20)] Future Scheduled [address] [facility] 00:00:00 aneurysm screening Medical C enter (procedure) [code = 505993361] Future Scheduled 2021 PNEUMOCOCCAL 65+ YRS (2 [...] 00:00:00 neoplasm of colon (procedure) [code = 037957944] Future Scheduled 2006 Screening for malignant [facility] 00:00:00 neoplasm of colon (procedure) [code = 346075664] Future Scheduled 2006 Screening for malignant [facility] 00:00:00 neoplasm of colon (procedure) [code = 582077595] Future Scheduled 2006 Screening for malignant [facility] 00:00:00 neoplasm of colon (procedure) [code = 012504723] Future Scheduled 2006 Screening for malignant [facility] 00:00:00 neoplasm of colon (procedure) [code = 433454338] Future Scheduled 2006 Screening for malignant [facility] 00:00:00 neoplasm of colon (procedure) [code = 918776037] Future Scheduled 2006 SHINGLES VACCINES (1 of [...] colon Medical Ce nter (procedure) [code = 390401442] Future Scheduled 1956 Screening for malignant [facility] 00:00:00 neoplasm of colon Medical Ce nter (procedure) [code = 787285699] Future Scheduled 1956 Sigmoidoscopy [code = CH [...] colon Medical Ce nter (procedure) [code = 141380045] Future Scheduled 1956 Screening for malignant [facility] 00:00:00 neoplasm of colon Medical Ce nter (procedure) [code = 707541615] Future Scheduled 1956 Sigmoidoscopy [code = [facility]oscopy] Medical Cente r Future Scheduled 1956 CT Colonography (combo) [facility] 00:00:00 [code = CT Colonography [facility] (combo)] Future Scheduled 1956 Screening for malignant [facility] 00:00:00 neoplasm of colon Medical Ce nter (procedure) [code = 227687372] Future Scheduled 1956 Screening for malignant [facility] 00:00:00 neoplasm of colon Medical Ce nter (procedure) [code = 212445730] Future Scheduled 1956 Sigmoidoscopy [code = [facility] S[facility]oidoscopy] Medical Cente r Future Scheduled 1956 CT Colonography (combo) [facility] 00:00:00 [code = CT Colonography [facility] (combo)] Future Scheduled 1956 Screening for malignant [facility] 00:00:00 neoplasm of colon Medical Ce nter (procedure) [code = 926676921] Future Scheduled 1956 Screening for malignant [facility] 00:00:00 neoplasm of colon Medical Ce nter (procedure) [code = 812191690] Future Scheduled 1956 Sigmoidoscopy [facility]code = [facility] S[facility]oscopy] Medical Cente r Future Scheduled 1956 CT Colonography (combo) [facility] 00:00:00 [code = CT Colonography [facility] (combo)] Future Scheduled 1956 Screening for malignant [facility] 00:00:00 neoplasm of colon Medical Ce nter (procedure) [code = 863951649] Future Scheduled 1956 Screening for malignant [facility] 00:00:00 neoplasm of colon Medical Ce nter (procedure) [code = 826880617] Future Scheduled 1956 Sigmoidoscopy [code [facility] Sigmoidoscopy] Medical Cente r Encounters Start End Encounter Admission Attending Care Care Encounter Source Date/Time Date/Time Type Type Clinicians Facility Department ID 2021-03-27 Emergency [facility] [id number] [facility] ER JOSÉ ANTONIO MYERS General Med [id number] [facility] 16:51:00 JOSH 2022-08-312022-08-31 Outpatient EL SLE SLE [id number] [facility] 00:00:00 00:00:00 2022-08-17 2022-08-17 Outpatient PING SLECarmine SLE [id number] [facility] 00:00:00 00:00:00 2022-08-17 2022-08-17 Outpatient JOSÉ ANTONIO GREENFIELD SLE [id number] [facility] 00:00:00 00:00:00 [facility] 2022-08-17 2022-08-17 Outpatient ROLA GREENFIELD SLE [id number] [facility] 00:00:00 00:00:00 [facility] 2022-06-08 2022-06-08 Documentcarla Steinberg [facility] [id number] 00:[facility] 00:00:00 [facility] 2022-06-08 2022-06-08 Documentcarla Enrique [facility] [id number] 00:00[facility]00 00:00:00 ion [facility] 2022-06-02 2022-06-02 [facility]car[facility] [id number] 00:00[facility]00 00:00:00 [facility] 2022-06-02 2022-06-02 Rios Stringer [facility] [id number] 00:00[facility]00 00:00:00 [facility] 2022-06-01 2022-06-01 [facility] [id number] SLE 09:46:56 11:05:10 [facility] 2022-06-01 2022-06-01 Office Danilofaith [facility] [id number] [facility] 09:30:00 11:05:10 Visit [facility] 2022-06-01 2022-06-01 Toni Steinberg [facility] [id number] [facility] 00:00:00 00:00:00 Only [facility] 2022-05-18 2022-05-18 [facility] [id number] 10:14:54 23:59:00 Encounter [facility] 2022-05-18 2022-05-18 [facility] [id number] 10:14:54 23:59:00 Encounter [facility] 2022-05-18 2022-05-18 Outpatient EL PADMINI, SLE SLE [id number] SLE 10:14:54 23:59:00 [facility] 2022-05-18 2022-05-18 [facility] [id number] 10:14:09 23:59:00 Encounter [facility] 2022-05-18 2022-05-18 [facility] [id number] 10:14:09 23:59:00 Encounter [facility] 2022-05-18 2022-05-18 Outpatient EL PADMINI, [facility] SLE [id number] SLE 10:14:09 23:59:00 [facility] 2022-05-18 2022-05-18 Orders Padmini, [facility] [id number] [facility] 10:45:00 10:55:00 Only [facility] 2022-05-18 2022-05-18 Orders PING [place], [facility] [id number] 10:45:00 10:55:00 Only [facility] 2022-05-18 2022-05-18 Outpatient EL SLE SLE [id number] [facility]H 09:40:39 09:40:39 2022-05-11 2022-05-11 Outpatient EL SLEH SLE [id number] [facility] 00:00:00 00:00:00 2022-04-28 2022-04-28 JADEN Dinh [id number] 00:00[facility]00 00:00:00 devon [facility] 2022-04-28 2022-04-28 [id number] 00:00:00 00:00:00 ion [facility] 2022-04-27 2022-04-27 Outpatient EL SLEH SLEH [id number] [facility] 00:00:00 00:00:00 2022-04-27 2022-04-27 [facility] [id number] 00:00:00 00:00:00 Only [facility] 2022-04-27 2022-04-27 [facility] [id number] 00:00:00 00:00:00 Only [facility] 2022-04-25 2022-04-25 [facility] [id number] 15:00:00 15:00:00 Encounter [facility] 2022-04-25 2022-04-25 [facility] [id number] 15:00:00 15:00:00 Encounter [facility] 2022-04-25 2022-04-25 [facility] [id number] 14:00:00 14:00:00 Encounter [facility] 2022-04-25 2022-04-25 [facility] [id number] 14:00:00 14:00:00 Encounter [facility] 2022-04-25 2022-04-25 Outpatient EL EVELYNADERI, SLEH SLEH [id number] [facility] 00:00:00 00:00:00 [facility] 2022-04-25 2022-04-25 Outpatient EL KHADERI, SLEH SLEH [id number] [facility] 00:00:00 00:00:00 [facility] 2022-04-25 2022-04-25 Outpatient EL KHADERI, SLEH SLEH [id number] [facility] 00:00:00 00:00:00 [facility] 2022-04-25 2022-04-25 Maxinecarla Idris [facility] [id number] 00:00[facility]00 00:00:00 [facility] 2022-04-25 2022-04-25 Maxinecarla Ordonezkatrina [facility] [id number] 00:00:00 00:00:00 [facility] 2022-04-08 2022-04-08 Outpatient EL SLE SLE [id number] [facility]H 00:00:00 00:00:00 2022-04-08 2022-04-08 Outpatient EL PADMINI, SLE SLEH [id number] [facility] 00:00:00 00:00:00 [facility] 2022-04-08 2022-04-08 Outpatient EL DANILORI, SLEH SLEH [id number] [facility] 00:00:00 00:00:00 [facility] 2022-04-08 2022-04-08 Rios Steinberg [facility] [id number] 00:00:00 00:00:00 [facility] 2022-04-08 2022-04-08 Outside Padmini [facility] [id number] 00:00:00 00:00:00 Orders [facility] 2022-04-08 2022-04-08 Outside Padmini [facility] [id number] 00:00:00 00:00:00 Orders [facility] 2022-04-08 2022-04-08 [facility]ios [facility] [id number] 00:00:00 00:00:00 [facility] 2022-04-08 2022-04-08 Outside Padmini [facility] [id number] 00:00:00 00:00:00 Orders [facility] 2022-04-08 2022-04-08 Outside Padmini [facility] [id number] 00:00[facility]00 00:00:00 [facility] 2022-04-07 2022-04-07 Documentat Myke, [facility] [id number] 00:00:00 00:00:00 [facility] 2022-04-07 2022-04-07 Documentcarla Stringer, [facility] [id number] 00:00:00 00:00:00 [facility] 2022-04-06 2022-04-06 Documentat Guzmán, [facility] [id number] 00:00:00 00:00:00 [facility] 2022-04-06 2022-04-06 Documentat Guzmán, [facility] [id number] 00:00:00 00:00:00 [facility] 2022-03-29 2022-03-29 Documentat Guzmán, [facility] [id number] 00:00:00 00:00:00 [facility] 2022-03-29 2022-03-29 Documentat Guzmná, [facility] [id number] 00:00:00 00:00:00 [facility] 2022-03-23 2022-03-23 Outpatient EL SLE SLE [id number] SLEH 00:00:00 00:00:00 2022-03-18 2022-03-18 [facility] [id number] 00:00:00 00:00:00 [facility] 2022-03-18 2022-03-18 Documentat Myke, [facility] [id number] 00:00:00 00:00:00 [facility] 2022-03-09 2022-03-09 Outpatient EL SLE SLE [id number] SLEH 00:00:00 00:00:00 2022-03-09 2022-03-09 Outpatient EL DANILORI, SLE SLE [id number] SLE 00:00:00 00:00:00 [facility] 2022-03-09 2022-03-09 Outpatient PADMINI, [facility] [id number] SLE 00:00:00 00:00:00 [facility] 2022-03-04 2022-03-04 Bertha Stringer [facility] [id number] 00:00:00 00:00:00 [facility] 2022-03-04 2022-03-04 Bertha Stringer [facility] [id number] 00:00:00 00:00:00 [facility] 2022-02-25 2022-02-25 Rios Steinberg, [facility] [id number] 00:00:00 00:00:00 [facility] 2022-02-25 2022-02-25 Rios Steinberg [facility] [id number] 00:00:00 00:00:00 [facility] 2022-02-01 2022-02-01 Rios Steinberg [facility] [id number] 00:00:00 00:00:00 [facility] 2022-02-01 2022-02-01 Rios Steinberg [facility] [id number] 00:00:00 00:00:00 [facility] 2022-01-21 2022-01-21 Rios Stringer [facility] [id number] 00:00:00 00:00:00 [facility] 2022-01-21 2022-01-21 Rios Stringer [facility] [id number] 00:00:00 00:00:00 [facility] 2022-01-18 2022-01-18 Rios Guzmán [facility] [id number] 00:00:00 00:00:00 [facility] 2022-01-18 2022-01-18 Rios Guzmán [facility] [id number] 00:00:00 00:00:[address] [facility] 2022-01-17 2022-01-17 Document Albaro [facility] [id number] 00:00:00 00:00:00 devon Diez [facility] 2022-01-17 2022-01-17 Document Albaro [facility] [id number] 00:00:00 00:00:00 [facility] 2022-01-13 2022-01-13 Document [facility] [id number] 00:00:00 00:00:00 [facility] 2022-01-13 2022-01-13 Document [facility] [id number] 00:00:00 00:00:00 [facility] 2022-01-10 2022-01-10 [facility] [id number] 00:00:00 00:00:00 [facility] 2022-01-10 2022-01-10 [facility] [id number] 00:00:00 00:00:00 [facility] 2022-01-07 2022-01-07 Document [facility] [id number] 00:00:00 00:00:00 [facility] 2022-01-07 2022[facility]01-07 [facility] [id number] 00:00:00 00:00:00 [facility] 2022-01-04 2022-01-04 Outpatient PADMINI [facility] [id number] SLE 11:53:22 23:59:00 [facility] 2022-01-04 2022-01-04 [facility] Padmini [facility] [id number] 11:53:22 23:59:00 Encounter [facility] 2022-01-04 2022-01-04 [facility] [id number] 11:53:22 23:59:00 Encounter [facility] 2021-12-26 2021-12-26 Emergency X RADHA, [facility] ERT [id number] Univers 15:39:00 18:19:00 FELISHA schmitt [facility] 2021-12-26 2021-12-26 [facility] [id number] Univers 15:39:00 18:19:00 Felisha VENEGAS [id number] i [facility] [id number] [facility] [id number] [place] [address] [place] 2021-12-23 2021-12-23 Documentat [facility] [id number] 00:00:00 00:00:00 [facility] 2021-12-23 2021-12-23 [facility] [id number] 00:00:00 00:00:00 Only [facility] 2021-12-23 2021-12-23 Documentat [facility] [id number] 00:00:00 00:00:00 [facility] 2021-12-23 2021-12-23 [facility] [id number] 00:00:00 00:00:00 Only [facility] 2021-12-22 2021-12-22 Office Padmini [facility] [id number] 11:00:00 11:36:33 Visit [facility] 2021-12-22 2021-12-22 Office PING [place] [facility] [id number] 11:00:00 11:36:33 Visit [facility] 2021-12-22 2021-12-22 Outpatient JOSÉ ANTONIO GREENFIELD SLE [id number] SLE 10:31:24 11:36:33 [facility] 2021-12-22 2021-12-22 Bertha [place] [facility] [id number] 00:00:00 00:00:00 [facility] 2021-12-22 2021-12-22 Documentat Guzmán, [facility] [id number] 00:00:00 00:00:00 [facility] 2021-12-22 2021-12-22 Bertha Danilofaith [facility] [id number] 00:00:00 00:00:00 [facility] 2021-12-22 2021-12-22 Maxineat [facility] [id number] 00:00:00 00:00:[address] [facility] 2021-12-21 2021-12-21 Toni Steinberg, [facility] [id number] 00:00:00 00:00:00 Only [facility] 2021-12-21 2021-12-21 Toni Steinberg [facility] [id number] 00:00:00 00:00:00 Only [facility] 2021-12-21 2021-12-21 Toni Steinberg [facility] [id number] 00:00:00 00:00:00 Only [facility] 2021-12-21 2021-12-21 Toni Steinberg [facility] [id number] 00:00:00 00:00:00 Only [facility] 2021-12-20 2021-12-20 Maxineat [facility] [id number] 00:00:00 00:00:00 [facility] 2021-12-20 2021-12-20 Documentat [facility] [id number] 00:00:00 00:00:00 [facility] 2021-12-16 2021-12-16 [facility] [id number] 00:00:00 00:00:00 [facility] 2021-12-16 2021-12-16 Documentat [facility] [id number] 00:00:00 00:00:00 [facility] 2021-12-09 2021-12-09 Document [facility] [id number] 00:00:00 00:00:00 [facility] 2021-12-09 2021-12-09 [facility] [id number] 00:00:00 00:00:00 [facility] 2021-12-08 2021-12-08 Outpatient EL SLE SLE [id number] [facility]H 00:00:00 00:00:00 2021-12-06 2021-12-06 Outpatient EL KHADERI, [facility] SLE [id number] SLEH 09:26:33 23:59:00 [facility] 2021-12-06 2021-12-06 [facility] [id number] 09:26:33 23:59:00 Encounter [facility] 2021-12-06 2021-12-06 [facility] [id number] 09:26:33 23:59:00 Encounter [facility] 2021-12-06 2021-12-06 Orders Danilori, [facility] [id number] 13:40:00 13:50:00 Only [facility] 2021-12-06 2021-12-06 Orders EL Evelynaderi, [facility] [id number] 13:40:00 13:50:00 Only [facility] 2021-12-06 2021-12-06 Outpatient EL SLE SLE [id number] SLEH 13:38:35 13:38:35 2021-12-06 2021-12-06 Outpatient PING [place] SLE SLE [id number] [facility] 09:25:54 09:25:54 [facility] 2021-12-06 2021-12-06 [facility] [id number] 09:25:54 09:25:54 Encounter [facility] 2021-12-06 2021-12-06 [facility] [id number] 09:25:54 09:25:54 Encounter [facility] 2021-12-06 2021-12-06 Outpatient ROLA GREENFIELD SLE [id number] SLEH 09:25:37 09:25:37 [facility] 2021-12-06 2021-12-06 [facility] [id number] 09:25:37 09:25:37 Encounter [facility] 2021-12-06 2021-12-06 [facility] [id number] 09:25:37 09:25:37 Encounter [facility] 2021-12-06 2021-12-06 [facility] [id number] 00:00:00 00:00:00 [facility] 2021-12-06 2021-12-06 Documentat [facility] [id number] 00:00:00 00:00:00 [facility] 2021-11-25 2021-11-25 Outpatient EL SLE SLE [id number] [facility] 00:00:00 00:00:00 2021-11-25 2021-11-25 Outpatient PING [place] SLE SLEH [id number] [facility] 00:00:00 00:00:00 [facility] 2021-11-25 2021-11-25 Outpatient PING [place] SLE [facility] [id number] SLE 00:00:00 00:00:00 [facility] 2021-11-25 2021-11-25 Outpatient JOSÉ ANTONIO GREENFIELD SLE [id number] SLE 00:00:00 00:00:00 [facility] 2021-11-08 2021-11-08 Documentat Guzmán, [facility] [id number] 00:00:00 00:00:00 [facility] 2021-11-08 2021-11-08 Documentat Guzmán, [facility] [id number] 00:00:00 00:00:00 [facility] 2021-11-08 2021-11-08 Documentat Guzmán, [facility] [id number] 00:00:00 00:00:00 [facility] 2021-11-08 2021-11-08 Documentat Guzmán, [facility] [id number] 00:00:00 00:00:00 [facility] 2021-10-22 2021-10-22 Outpatient DMG DM [id number] [facility] 09:00:00 09:00:00 [id number] [facility] 2021-09-30 2021-09-30 Documentat Guzmán, [facility] [id number] 00:00:00 00:00:00 [facility] 2021-09-30 2021-09-30 Documentat Guzmán, [facility] [id number] 00:00:00 00:00:00 [facility] 2021-09-28 2021-09-28 Telephone Albaro, [facility] [id number] 00:00:00 00:00:00 [facility] 2021-09-28 2021-09-28 Telephone Albaro, [facility] [id number] 00:00:00 00:00:00 [facility] 2021-09-08 2021-09-08 Outpatient JOSÉ ANTONIO GREENFIELD SLE [id number] SLE 09:55:52 10:29:39 [facility] 2021-09-08 2021-09-08 Office Padmini, [facility] [id number] 09:30:00 10:29:39 Visit [facility] 2021-09-08 2021-09-08 Office Padmini, [facility] [id number] 09:30:00 10:29:39 Visit [facility] 2021-09-08 2021-09-08 Orders Steinberg, [facility] [id number] 00:00:00 00:00:00 Only [facility] 2021-09-08 2021-09-08 Orders Idris [facility] [id number] 00:00:00 00:00:00 Only [facility] 2021-09-06 2021-09-06 Documentcarla [facility] [id number] [facility] 00[facility] 00:[facility]:00 [facility] 2021-09-06 2021-09-06 Document [facility] [id number] [facility] 00[facility]00 00:00:00 [facility] 2021-09-02 2021-09-02 Document Idris [facility] [id number] [facility]00 00:00:00 [facility] 2021-09-02 2021-09-02 [facility] [id number] [facility] 00:[facility]00 00:00:00 [facility] 2021-08-30 2021-08-30 [facility] [id number] [facility] 00:[facility]00 00:00:00 [facility] 2021-08-30 2021-08-30 [facility] [id number] [facility] 00[facility]00:00 [facility] 2021-08-30 2021-08-30 Documentat Ramirez [facility] [id number] [facility] [facility] 00:00[facility]00 00:00:00 devon Murphy [facility] 2021-08-30 2021-08-30 Documentat Idris [facility] [id number] [facility] 00:[facility]00 00:00:00 devon Morgan [facility] 2021-08-26 2021-08-26 Outpatient PING [place], SLE SLE [id number] SLEH 08:46:32 23:59:00 [facility] 2021-08-26 2021-08-26 [facility] [id number] [facility] 08:46:32 23:59:00 Encounter [facility] 2021-08-26 2021-08-26 [facility] [id number] 08:46:32 23:59:00 Encounter [facility] 2021-08-26 2021-08-26 Orders Evelynjaydenok, [facility] [id number] 09:00:00 09:10:00 Only [facility] 2021-08-26 2021-08-26 Orders IPNG [place], [facility] [id number] 09:00:00 09:10:00 Only [facility] 2021-08-26 2021-08-26 Outpatient PING [place] [facility] SLE [id number] SLEH 08:42:22 08:45:00 [facility] 2021-08-26 2021-08-26 [facility] [id number] 08:42:22 08:45:00 Encounter [facility] 2021-08-26 2021-08-26 [facility] [id number] 08:42:22 08:45:00 Encounter [facility] 2021-08-26 2021-08-26 Outpatient [facility] [id number] SLE 08:20:55 08:20:55 2021-08-26 2021-08-26 Outpatient [facility] [id number] SLE 00:00:00 00:00:00 2021-08-16 2021-08-16 Maxineat Ramirez [facility] [id number] 00:00[facility]00 00:00:00 [facility] 2021-08-16 2021-08-16 Documentat [facility] [id number] 00:00:00 00:00:00 [facility] 2021-08-16 2021-08-16 [facility] [id number] 00:00:00 00:00:00 [facility] 2021-08-16 2021-08-16 Maxine Ramirez [facility] [id number] 00:00:00 00:00:00 [facility] 2021-08-05 2021-08-05 [facility] [id number] 00:[facility]00 00:00:00 [facility] 2021-08-05 2021-08-05 Rios Steinberg [facility] [id number] 00:00:00 00:00:00 ion [facility] 2021-08-02 2021-08-02 Toni Steinberg [facility] [id number] 00:00:00 00:00:00 Only [facility] 2021-08-02 2021-08-02 Toni Steinberg [facility] [id number] 00:00:00 00:00:00 Only [facility] 2021-07-28 2021-07-28 Outpatient PING [place] [facility] [id number] SLE 09:06:24 09:58:24 AMBERLY 2021-07-28 2021-07-28 Christiano [place] [facility] [id number] 09:00:00 09:58:24 Visit [facility] 2021-07-28 2021-07-28 Office Padmini [facility] [id number] 09:00:00 09:58:24 Visit [facility] 2021-07-27 2021-07-27 Documentat Guzmán, [facility] [id number] 00:00:00 00:00:00 [facility] 2021-07-27 2021-07-27 Toni Ordonezkatrina [facility] [id number] 00:00:00 00:00:00 Only [facility] 2021-07-27 2021-07-27 Maxineat Guzmán, [facility] [id number] 00:00:00 00:00:00 [facility] 2021-07-27 2021-07-27 Toni Steinberg [facility] [id number] 00:00:00 00:00:00 Only [facility] 2021-07-26 2021-07-26 Documentat Guzmán, [facility] [id number] 00:00:00 00:00:00 [facility] 2021-07-26 2021-07-26 Documentat Guzmán, [facility] [id number] [id number] 00:00:00 00:00:00 [facility] 2021-07-26 2021-07-26 Documentat Guzmán, [facility] [id number] 00:00:00 00:00:00 [facility] 2021-07-26 2021-07-26 Documentat Guzmán, [facility] [id number] 00:00:00 00:00:00 [facility] 2021-07-14 2021-07-14 Outpatient [facility] [id number] SLE 00:00:00 00:00:00 2021-07-12 2021-07-12 [facility] [id number] 00:[facility] 00:00:00 [facility] 2021-07-12 2021-07-12 [facility] [id number] 00:00[facility]00 00:00:00 [facility] 2021-07-07 2021-07-07 Outpatient SLE SLEH [id number] [facility] 00:00:00 00:00:00 2021-07-07 2021-07-07 [facility] [id number] 00:00:00 00:00:00 [facility] 2021-07-07 2021-07-07 [facility] [id number] 00:00:00 00:00:00 [facility] 2021-06-28 2021-06-28 [facility] [id number] 00:00:00 00:00:00 [facility] 2021-06-28 2021-06-28 [facility] [id number] 00:00:00 00:00:00 [facility] 2021-06-27 2021-06-27 Telephone [facility] [id number] 00:00:00 00:00:00 [facility] 2021-06-27 2021-06-27 Telephone [facility] [id number] 00:00:00 00:00:00 [facility] 2021-05-24 2021-05-24 Tamiko Chu [facility] 1.2.840.114 [id number] Univers 00:00:00 00:00:00 Pearl VENEGAS 350.1.13.10 i Kei [id number] Anyi REZA [phone] Md dical NAL 044 [facility] 2021-05-14 2021-05-14 Documentat Ramirez [facility] [id number] 00:00:00 00:00:[address] [facility] 2021-05-13 2021-05-13 Abstract Elsa [facility] [id number] 00:00:00 00:00:00 [facility] 2021-05-12 2021-05-12 Outpatient EL SLE SLE [id number] SLEH 00:00:00 00:00:00 2021-05-10 2021-05-10 Telephone Steinberg, [facility] [id number] 00:00:00 00:00:00 [facility] 2021-05-03 2021-05-03 Documentat [facility] [id number] 00:00:00 00:00:00 ion [facility] 2021-04-29 2021-04-29 Outpatient PING [place] [facility] SLE [id number] SLEH 10:09:55 23:59:00 [facility] 2021-04-29 2021-04-29 [facility] [id number] 10:09:55 23:59:00 Encounter [facility] 2021-04-29 2021-04-[address] [facility] [id number] 12:00:00 12:10:00 Only [facility] 2021-04-29 2021-04-29 Outpatient PADMINI [facility] SLE [id number] SLE 10:09:10 10:08:00 [facility] 2021-04-29 2021-04-29 [facility] [id number] 10:00:00 10:08:00 Encounter [facility] 2021-04-29 2021-04-29 Outpatient [place] [facility] [id number] SLE 09:35:14 09:59:00 [facility] 2021-04-29 2021-04-29 [facility] [id number] 09:35:14 09:59:00 Encounter [facility] 2021-04-29 2021-04-29 Outpatient PING [place] [facility] [id number] SLE 09:35:00 09:34:00 [facility] 2021-04-29 2021-04-29 [facility] [id number] 09:00:00 09:34:00 Encounter [facility] 2021-04-29 2021-04-29 Outpatient [facility] [id number] SLEH 08:33:09 08:33:09 2021-04-29 2021-04-29 Outpatient PADMINI [facility] [id number] SLE 00:00:00 00:00:00 [facility] 2021-04-02 2021-04-02 [facility] 1.2.840.114 [id number] Univers 00:00:00 00:00:00 Pearl VENEGAS 350.1.13.10 i ty [facility] [id number] [facility] [phone] Md dic[address] 2021-04-01 2021-04-01 Emergency X [facility] ERT [id number] Univers 13:07:00 15:37:00 CHANDRAKANT schmitt [facility] 2021-04-01 2021-04-01 Emergency [facility] [id number] [id number] Univers 13:07:00 15:37:00 Chandrakant VENEGAS 350.1.13.10 i ty [facility] [id number] [facility] [phone] [facility] 084 [place] 2021-03-18 2021-03-18 Toni [facility] [id number] 00:00:00 00:00:00 Only Eddie Mendiola [facility] 2021-03-16 2021-03-16 [facility] 1.2.840.114 [id number] Univers 00:00:00 00:00:00 Pearl Venegas 350.1.13.10 i [id number] [phone] Md dical nal 044 [facility] 2021-03-15 2021-03-15 [facility] 1.2.840.114 [id number] Univers 00:00:00 00:00:00 Pearl Venegas 350.1.13.10 i ty [id number] [phone] Md dical nal 044 [facility] 2021-03-12 2021-03-12 [facility] [id number] 12:16:00 15:05:00 Encounter [facility] 2021-03-12 2021-03-12 Outpatient PADMINI [facility] Radiology [id number] [id number] SLE 06:21:33 15:05:00 [facility] 2021-03-12 2021-03-12 Abstract [facility] [id number] 00:00:00 00:00:00 [facility] 2021-03-10 2021-03-10 Documentat [facility] [id number] 00:00:00 00:00:[address] [facility] 2021-03-10 2021-03-10 Orders Derik [facility] [id number] 00:00:00 00:00:00 Only [facility] 2021-02-23 2021-02-23 [facility] [id number] 09:28:20 23:59:00 Encounter [facility] 2021-02-23 2021-02-23 Outpatient PADMINI [facility] [id number] SLE 00:00:00 23:59:00 [facility] 2021-02-23 2021-02-23 Outpatient SLEH SLEH [id number] SLEH 10:02:57 10:02:57 2021-02-23 2021-02-23 Outside Dipesh [facility] [id number] 00:00:00 00:00:00 Orders [facility] 2021-02-05 2021-02-05 Outpatient Juan J GUIDRY [facility] [id number] Univers 10:50:00 10:50:00 TAM schmitt [facility] 2021-02-05 2021-02-05 Imm/Inj Nurse, Adc Pob Immunization [facility] 1.2.840.114 [id number] Univers 10:46:45 10:47:11 Visit Tam Guidry 350.1.13 .10 [facility] [id number] Anyi Farnsworthessio [phone] Md dical [address] 2021-02-04 2021-02-04 Documentat Ramirez [facility] [id number] 00:00:00 00:00:[address] [facility] 2021-02-04 2021-02-04 Documentat Ramirez [facility] [id number] 00:00:00 00:00:00 [facility] 2021-02-04 2021-02-04 Documentat Ramirez [facility] [id number] 00:00:00 00:00:[address] [facility] 2021-02-03 2021-02-03 Office Padmini [facility] [id number] 10:00:00 10:30:00 Visit Amberlydheeraj Alexandre [facility] 2021-02-03 2021-02-03 Outpatient SLEH SLEH [id number] [facility]H 00:00:00 00:00:00 2021-02-03 2021-02-03 Documentat Albaro [facility] [id number] 00:00:00 00:00:00 devon [facility] 2021-02-03 2021-02-03 Documentat Yohannes, [facility] [id number] 00:00:00 00:00:00 devon [facility] 2021-02-03 2021-02-03 Orders Idris, [facility] [id number] 00:00:00 00:00:00 Only [facility] 2021-02-02 2021-02-02 Telephone [facility] [id number] 00:00:00 00:00:00 [facility] 2021-01-28 2021-01-28 Documentat [facility] [id number] 00:00:00 00:00:00 [facility] 2021-01-25 2021-01-25 Documentat [facility] [id number] 00:00:00 00:00:00 [facility] 2021-01-21 2021-01-21 [facility] [id number] 10:27:08 23:59:00 Encounter [facility] 2021-01-21 2021-01-21 [facility] [id number] 10:27:00 10:27:00 Encounter [facility] 2021-01-21 2021-01-21 Orders Padmini [facility] [id number] 09:58:59 10:08:59 Only [facility] 2021-01-21 2021-01-21 Outpatient EVELYNADERI, SLE SLE [id number] SLE 00:00:00 00:00:00 [facility] 2021-01-21 2021-01-21 Outpatient KHADERI, SLEH SLEH [id number] [facility]H 00:00:00 00:00:00 [facility] 2021-01-21 2021-01-21 Outpatient EL SLEH SLE [id number] SLEH 00:00:00 00:00:00 2020-12-30 2020-12-30 Outpatient SLE SLE [id number] SLEH 00:00:00 00:00:00 2020-12-17 2020-12-17 Outpatient EL SLEH SLEH [id number] SLEH 00:00:00 00:00:00 2020-12-17 2020-12-17 Outpatient DANILORI, SLE SLEH [id number] [facility]H 00:00:00 00:00:00 [facility] 2020-12-17 2020-12-17 Outpatient EVELYNADERI, SLE SLEH [id number] SLEH 00:00:00 00:00:00 [facility] 2020-12-02 2020-12-02 Documentat Emil [facility] [id number] [facility] 00:00[facility]00 00:00:00 [facility] 2020-11-26 2020-11-26 [facility] Padmini [facility] [id number] 13:14:00 18:00:00 Encounter [facility] 2020-11-26 2020-11-26 Outpatient SLE SLE [id number] SLEH 00:00:00 00:00:00 2020-11-18 2020-11-18 Abstract Yohannes [facility] [id number] 00:00:00 00:00:00 [facility] 2020-11-16 2020-11-16 Documentcarla Guzmán [facility] [id number] 00:00:00 00:00:[address] [facility] 2020-11-16 2020-11-16 Telephone Emil [facility] [id number] 00:00:00 00:00:00 [facility] 2020-11-10 2020-11-10 Toni Steinberg [facility] [id number] 00:00:00 00:00:00 Only [facility] 2020-11-05 2020-11-05 Documentat Ramirez [facility] [id number] 00:00:00 00:00:[address] [facility] 2020-11-04 2020-11-04 Office System, [facility] [id number] 09:38:44 10:38:44 Visit Provider [facility] 2020-11-04 2020-11-04 Outpatient EL SLE SLE [id number] SLEH 00:00:00 00:00:00 2020-10-28 2020-10-28 Office PING [place], [facility] [id number] 08:37:21 10:38:34 Visit [facility] 2020-10-28 2020-10-28 Outpatient EL SLE SLE [id number] SLEH 00:00:00 00:00:00 2020-10-28 2020-10-28 Outpatient SLE SLE [id number] SLEH 00:00:00 00:00:00 2020-10-28 2020-10-28 Telephone Albaro [facility] [id number] 00:00:00 00:00:00 [facility] 2020-10-28 2020-10-28 Documentat [facility] [id number] 00:00:00 00:00:[address] [facility] 2020-10-27 2020-10-27 Telephone Ramirez [facility] [id number] 00:00:00 00:00:00 [facility] 2020-10-21 2020-10-21 Outpatient [facility] SLE [id number] SLEH 00:00:00 00:00:00 2020-10-21 2020-10-21 Telephone Kimberley [facility] 1.2.840.114 [id number] Univers 00:00:00 00:00:00 Pearl Venegas 350.1.13.10 aung Hendricks 4.2.7.2.686 Anyi Reza [phone] Md dical [address] 2020-10-20 2020-10-20 Toni Steinberg [facility] [id number] 00:00:00 00:00:00 Only Eddie Mendiola [facility] 2020-10-19 2020-10-19 Telephone Albaro [facility] [id number] 00:00:00 00:00:00 [facility] 2020-10-19 2020-10-19 Documentat Ramirez [facility] [id number] 00:00:00 00:00:[address] [facility] 2020-10-15 2020-10-15 Documentat Ramirez, [facility] [id number] 00:00:00 00:00:[address] [facility] 2020-10-14 2020-10-14 Telemedici [facility] 1.2.840.114 [id number] Univers 11:21:55 11:27:44 ne Visit Pearl Venegas 350.1.13.10 itgaurang [facility] [id number] [phone] Md dical [place]al [address] [place] [address] 2020-10-14 2020-10-14 Outpatient [facility] [id number] Univers 09:20:00 09:20:00 PEARL schmitt [facility] 2020-10-13 2020-10-13 Refill [facility] 1.2.840.114 [id number] Univers 00:00:00 00:00:00 Pearl Venegas 350.1.13.10 i ila [facility] [id number] [phone] Md dical nal 044 [facility] 2020-10-12 2020-10-12 Documentat Steinberg, [facility] [id number] 00:00:00 00:00:00 devon Mendiola [facility] 2020-10-08 2020-10-08 [facility] Padmini [facility] [id number] 09:30:00 23:59:00 Encounter Amberly Alexandre [facility] 2020-10-08 2020-10-08 Orders PING [place], [facility] [id number] 10:50:16 11:05:16 Only [facility] 2020-10-08 2020-10-08 [facility] Padmini, [facility] [id number] 08:45:00 09:29:00 Encounter [facility] 2020-10-08 2020-10-08 Outpatient PADMINI, SLEH SLEH [id number] [facility]H 00:00:00 00:00:00 [facility] 2020-10-08 2020-10-08 Outpatient PING [place] SLE SLEH [id number] [facility]H 00:00:00 00:00:00 [facility] 2020-10-08 2020-10-08 Outpatient SLEH SLEH [id number] SLEH 00:00:00 00:00:00 2020-10-08 2020-10-08 Outpatient PING [place] SLE SLEH [id number] [facility]H 00:00:00 00:00:00 [facility] 2020-10-08 2020-10-08 Outpatient PADMINI SLEH SLEH [id number] [facility]H 00:00:00 00:00:00 [facility] 2020-10-08 2020-10-08 Outpatient PADMINI SLEH SLEH [id number] [facility]H 00:00:00 00:00:00 [facility] 2020-10-08 2020-10-08 [facility] [id number] 00:00:00 00:00:00 Only [facility] 2020-09-21 2020-09-21 Orders [facility] [id number] 00:00:00 00:00:00 Only [facility] 2020-09-11 2020-09-11 Telephone Ruba [facility] [id number] 00:[facility] 00[facility]00[facility]00 [facility] 2020-09-21 2020-09-10 Inpatient [place], [facility] ENDO [id number] 07:00:00 11:10:[address] [place] [address] 2020-09-10 2020-09-10 Documentat Ramirez [facility] [id number] 00:00:00 00:00:00 [facility] 2020-09-03 2020-09-03 Documentat Mauricio [facility] [id number] 00:00:00 00:00:00 ion [facility] 2020-09-02 2020-09-02 Documentat Emil [facility] [id number] [facility] 00:00:00 00:00:00 [facility] 2020-09-02 2020-09-02 Telephone Iker [facility] [id number] 00:00:00 00:00:00 [facility] 2020-09-01 2020-09-01 [facility] [id number] 10:00:00 23:59:00 [facility] 2020-09-01 2020-09-01 Follow-Up PING Yeh [facility] [id number] 09:48:56 10:18:56 Nickiese Agustin [facility] 2020-09-01 2020-09-01 Outpatient [facility] [id number] SLE 00:00:00 00:00:00 2020-09-01 2020-09-01 Outpatient PING KAPLANOD JOSE FRANCISCO SLE SLE [id number] SLEH 00:00:00 00:00:00 2020-09-01 2020-09-01 Telephone Iker [facility] [id number] 00:00:00 00:00:00 [facility] 2020-09-01 2020-09-01 Documentcarla Martínez [facility] [id number] 00:00:00 00:00:00 devon [facility] 2020-08-31 2020-08-31 Telephone Emil [facility] [id number] [facility] 00:00:00 00:00:00 [facility] 2020-08-19 2020-08-19 Emergency [facility] 1.2.840.114 [id number] Univers 07:35:00 10:07:00 Wendy Venegas 350.1.13.10 [id number] [phone] [facility] 084 [place] 2020-08-19 2020-08-19 Emergency X [facility] ERT [id number] Univers 07:35:00 10:07:[address] [facility] 2020-08-19 2020-08-19 Emergency [facility] 1.2.840.114 [id number] 07:35:00 10:07:00 Wendy Venegas 350.1.13.10 [place] 4.2.7.2.686 Dennis [id number] [facility] 2020-08-19 2020-08-19 Orders Doctor LICONA 1.2.840.114 [id number] Univers 00:00:00 00:00:00 Only UnassignedTOY 350.1.13.10 ity of [place] [facility] 4.2.7.2.686 Bryce as [phone] [facility] 009 [place] 2020-08-19 2020-08-19 Orders Doctor LICONA 1.2.840.114 [id number] 00:00:00 00:00:00 Only UnassignedTOY 350.1.13.10 [place] [facility] [id number] 009 2020-08-03 2020-08-03 Refcynthia ChuUNM [facility] 1.2.840.114 [id number] [facility] 00:00:00 00:00:00 Pearl Venegas 350.1.13.10 i ty [place].2.[place] [facility] [phone] Md dical [address] 2020-08-03 2020-08-03 Tamiko Chu [facility] 1.2.840.114 [id number] 00:00:00 00:00:00 Pearl Venegas 350.1.13.10 [place] 4.2.7.2.686 Professio [phone] nal 044 Building 2020-07-19 2020-07-19 Immunizati Covid [facility] [id number] 13:46:40 13:56:40 on EmployeeGerman Chi [facility] 2020-07-19 2020-07-19 Outpatient EL SLE SLE [id number] SLE 00:00:00 00:00:00 2020-07-19 2020-07-19 Documentat Estela, [facility] [id number] [facility] St 00:00:00 00:00:00 [facility] 2020-07-18 2020-07-18 Outpatient EL SLE SLE [id number] [facility] 00:00:00 00:00:00 2020-06-28 2020-06-28 Outpatient SLE SLE [id number] SLE 00:00:00 00:00:00 2020-06-25 2020-06-25 Emergency [facility], [facility] [id number] [facility] 17:04:00 23:09:00 Carolina Venegas [id number] ity of [place] [id number] [facility] [id number] [facility] [address] 2020-06-25 2020-06-25 Emergency [facility], [facility] [id number] 17:04:00 23:09:00 Carolina Venegas [id number] [place] [id number] [place] [id number] 2020-06-25 2020-06-25 Orders Doctor LICONA [id number] [facility] 00:00:00 00:00:00 Only Unassigned, TOY [id number] [place]y [place] [facility] 4.2.7.2.686 [facility] [id number] [facility] 00[address] Branch 2020-06-25 2020-06-25 Orders Doctor LICONA [id number] 00:00:00 00:00:00 Only Unassigned, [place] [id number] [place] [facility] 4.2.7.2.686 [phone] 009 2020-06-22 2020-06-22 Refill [facility] 1.2.840.114 [id number] Univers 00:00:00 00:00:00 Pearl Venegas 350.1.13.10 i [place] [phone] Md dical [place]al [address] [place] [address] 2020-06-22 2020-06-22 Refill [facility] 1.2.840.114 [id number] 00:00:00 00:00:00 Pearl Venegas 350.1.13.10 [place] 4.2.7.2.686 Professio [phone] [address] 2020-03-13 2020-03-13 Outpatient EL SLEH SLEH [id number] [facility] 00:00:00 00:00:00 2020-03-13 2020-03-13 Outpatient SLEH SLEH [id number] [facility]H 00:00:00 00:00:00 2020-03-13 2020-03-13 Outpatient JESSICA, SLEH SLEH [id number] SLEH 00:00:00 00:00:00 [facility] 2020-03-13 2020-03-13 Outpatient EL KHADERI, SLEH SLEH [id number] SLEH 00:00:00 00:00:00 [facility] 2020-02-18 2020-02-18 Outpatient SLEH SLEH [id number] [facility]H 00:00:00 00:00:00 2020-02-18 2020-02-18 Outpatient EL SLEH SLEH [id number] SLEH 00:00:00 00:00:00 2020-02-18 2020-02-18 Outpatient SLEH SLEH [id number] SLEH 00:00:00 00:00:00 2020-02-05 2020-02-05 Outpatient SLEH SLEH [id number] [facility]H 00:00:00 00:00:00 2020-02-05 2020-02-05 Outpatient KHADERI, SLEH SLEH [id number] SLEH 00:00:00 00:00:00 AMBERLY 2020-02-05 2020-02-05 Outpatient SLEH SLEH [id number] SLEH 00:00:00 00:00:00 2020-01-28 2020-01-28 Outpatient EL SLEH SLEH [id number] [facility]H 00:00:00 00:00:00 2020-01-14 2020-01-14 Outpatient EL SLEH SLE [id number] SLEH 00:00:00 00:00:00 2019-09-11 2019-09-11 Telephone [facility] 1.2.840.114 [id number] [facility] 00:00:00 00:00:00 Pearl Venegas 350.1.13.10 i ty [facility] [place] [phone] Md dic[address] 2019-09-11 2019-09-11 Telephone [facility] 1.2.840.114 [id number] 00:00:00 00:00:00 Pearl Venegas 350.1.13.10 [place] 4.2.7.2.686 Professio [phone] [address] 2019-08-20 2019-08-20 Outpatient SLE SLE [id number] SLEH 00:00:00 00:00:00 [id number] 2019-02-08 2019-02-08 Orders Doctor LICONA 1.2.840.114 [id number] [facility] 00:00:00 00:00:00 Only Unassigned, TOY 350.1.13.10 ity [facility] 4.2.7.2.686 Bryce as [phone] [address] 2019-02-08 2019-02-08 Orders Doctor MONAE 1.2.840.114 [id number] 00:00:00 00:00:00 Only Unassigned, TOY 350.1.13.10 [facility] 4.2.7.2.686 [phone] 009 2019-01-31 2019-01-31 Orders Doctor LICONA 1.2.840.114 [id number] Univers 00:00:00 00:00:00 Only Unassigned, TOY 350.1.13.10 ity of [place] [facility] 4.2.7.2.686 Bryce as [phone] [address] 2019-01-31 2019-01-31 Orders Doctor MONAE 1.2.840.114 [id number] 00:00:00 00:00:00 Only Unassigned, TOY 350.1.13.10 [facility] 4.2.7.2.686 [phone] [facility] 2019-01-23 2019-01-23 Telephone Brenda Rod [facility] 1.2.840.114 [id number] [facility] 00:00:00 00:00:00 [place] 350.1.13.10 i ty [place] [phone] [address] 2019-01-23 2019-01-23 Telephone Brenda Rod [facility] 1.2.840.114 [id number] 00:00:00 00:00:00 [place] 350.1.13.10 [place] 4.2.7.2.686 Professio [phone] [address] 2019-01-21 2019-01-21 Office Brenda Rod [facility] 1.2.840.114 [id number] [facility] 15:52:08 16:26:09 Visit [place] 350.1.13.10 i ty [place] [phone] [address] 2019-01-21 2019-01-21 Office Brenda Rod [facility] 1.2.840.114 [id number] 15:52:08 16:26:09 Visit [place] 350.1.13.10 [place] 4.2.7.2.686 Professio [phone] [address] 2019-01-17 2019-01-17 Orders Doctor MONAE 1.2.840.114 [id number] Univers 00:00:00 00:00:00 Only Unassigned, TOY 350.1.13.10 ity of [place] [facility] 4.2.7.2.686 Bryce as [phone] [address] 2019-01-17 2019-01-17 Orders Doctor MONAE 1.2.840.114 [id number] 00:00:00 00:00:00 Only Unassigned, TOY 350.1.13.10 [place] 4.2.7.2.686 [phone] 2019-01-07 2019-01-07 Brenda Amado [facility] 1.2.840.114 [id number] Univers 00:00:00 00:00:00 [place] 350.1.13.10 i [place] [phone] [address] 2019-01-07 2019-01-07 Orders Doctor MONAE 1.2.840.114 [id number] Univers 00:00:00 00:00:00 Only Unassigned, TOY 350.1.13.10 ity of [place] [facility] 4.2.7.2.686 Bryce as [phone] [address] 2019-01-02 2019-01-02 Orders Doctor MONAE 1.2.840.114 [id number] Univers 00:00:00 00:00:00 Only Unassigned, TOY 350.1.13.10 ity of [place] [facility] 4.2.7.2.686 Bryce as [phone] [address] 2019-01-02 2019-01-02 [facility] Brenda Rod [facility] 1.2.840.114 [id number] Univers 00:00:00 00:00:00 [place] 350.1.13.10 [place] [phone] [address] 2019-01-02 2019-01-02 Orders Doctor LICONA 1.2.840.114 [id number] 00:00:00 00:00:00 Only Unassigned, TOY 350.1.13.10 [facility] 4.2.7.2.686 [phone] 2018-12-28 2018-12-28 Orders Doctor LICONA 1.2.840.114 [id number] Univers 00:00:00 00:00:00 Only Unassigned, TOY 350.1.13.10 ity of [place] [facility] 4.2.7.2.686 Bryce as [phone] [address] 2018-12-28 2018-12-28 Orders Doctor MONAE 1.2.840.114 [id number] 00:00:00 00:00:00 Only Unassigned, TOY 350.1.13.10 [facility] [phone] 009 2018-12-21 2018-12-21 Telephone Brenda Rod [facility] 1.2.840.114 [id number] Univers 00:00:00 00:00:00 C [place] 350.1.13.10 [place] [phone] Md dical [facility] 044 [facility] 2018-12-17 2018-12-17 Orders Doctor MONAE 1.2.840.114 [id number] Univers 00:00:00 00:00:00 Only Unassigned, TOY 350.1.13.10 ity of [place] [facility] 4.2.7.2.686 Bryce as [phone] [address] 2016-10-19 2016-10-19 Orders Doctor MONAE 1.2.840.114 [id number] Univers 00:00:00 00:00:00 Only Unassigned, TOY 350.1.13.10 ity of [place] [facility] 4.2.7.2.686 Bryce as [phone] [address] 2016-10-19 2016-10-19 Orders Doctor MONAE 1.2.840.114 [id number] 00:00:00 00:00:00 Only Unassigned, TOY 350.1.13.10 [facility] 4.2.7.2.686 [phone] 2016-10-13 2016-10-13 Orders Doctor MONAE 1.2.840.114 [id number] Univers 00:00:00 00:00:00 Only Unassigned, TOY 350.1.13.10 ity of [place] [facility] 4.2.7.2.686 Bryce as [phone] [address] Results Test Description Test Time Test Comments Results Result [facility] e Comments CT, CHEST, 2022-05-22 REFERRING MD: WITHOUT CONTRAST 11:39:00 ANIL SALVADOR Unlisted Reason [facility] for Exam - [facility] - MEDICAL Click Yes and CENTERName: [facility] Reason OJN : 1955 Below->YesUnlis Sex: lisa Reason for [...] nodule. Signed: Ankit Gaines MDReport Verified Date/Time: 05/22/2022 11:39:18 , ABDOMEN, WITH 2022-05-21 REFERRING MD: 14:59:00 ANIL MODESTO Unlisted Reason [facility] for Exam - [facility] - MEDICAL Click Yes and CENTERName: KALEN [...] mass. Cirrhosis and splenomegaly. Signed: Milton Royal MDReport Verified Date/Time: 05/21/2022 14:59:42 A FETOPROTEIN (AFP), TUMOR MARKER 2022-05-18 12:23:11 Test Item Value Reference Range Interpretation Comme nts ALPHA-FETOPROTEIN (BEAKER) (test code = 1094) < ng/mL <10.0 Police Records Clerk ID - MITCHCBC W/PLT COUNT & AUTO [id number] 11:00:53 Test Item Value Reference Range Interpretation [...] (BEAKER) (test code = 2801) HEPATIC FUNCTION [id number] 11:00:04 Test Item Value Reference Range Interpretation [...] (test code = 28 U/L 6-55 347) Police Records Clerk ID - BETTE GBASIC METABOLIC [id number] 10:59:58 Test Item Value Reference Range Interpretation [...] not appl icable for dialysis patien ts Police Records Clerk ID - BETTE GPROTHROMBIN TIME/[id number] 10:51:01 Test Item Value Reference Range Interpretation Comments PROTIME (BEAKER) 16.9 seconds 11.9-14.2 H (test code = 759) INR (BEAKER) (test 1.46 See_Comment [Automat ed message] code = 370) The system [employer] generated this result transmitted ref erence range: <=5.90. The reference range was not used to int erpret this result as normal/abnormal . RECOMMENDED COUMADIN/WARFARIN INR THERAPY RANGESSTANDARD DOSE: 2.0 - 3.0 Includes: PROPHYLAXIS for venous thrombosis, systemic embolization; TREATMENT for venous thrombosis and/or pulmonary embolus.HIGH RISK: Target INR is 2.5-3.5 for patients with mechanical heart valves.[id number] 09:52:00 Test Item Value Reference Range Interpretation Comments Ferritin, Serum (test code = 2276-4) 16 ng/mL 24-380 L Lab Interpretation (test code = Abnormal 28662-9) [facility] + automated [id number] 09:52:00 Test Item Value Reference Range Interpretation Comments WBC (test code = 7.2 See_Comment [Automated message] ) The system [employer] generated this result transmit lisa reference range : 3.8 - 10.8 Thousand /uL. The reference r mela was not used to interpret this result as normal/abnormal . RBC (test code = 789-8) 4.03 See_Comment L [Au tomated message] The system [employer] generated this result transmit lisa reference range [...] L [Aut omated message] ) The system [employer] generated this result transmit lisa reference range : 140 - 400 Thousand/ uL. The reference r mela was not used to interpret this result as normal/abnormal . MPV (test code = 7.5-12.5 Due to plat elet or 4225203) RBC variability in size or shapeth e result cannot b e reported accura tely. # Neutros (test code = 4284 See_Comment [Aut omated message] 20191222) The system [employer] generated this result transmit lisa reference range : 1,500 - 7,800 cells/uL. The reference range was not used to interpret this result as normal/abnormal . # Lymphs (test code = 1879 See_Comment [Auto mated message] 1-0) The system [employer] generated this result transmit lisa reference range : 850 - 3,900 cells/u L. The reference r mela was not used to interpret this result as normal/abnormal . # Monos (test code = 871 See_Comment [Autom ated message] ) The system [employer] generated this result transmit lisa reference range : 200 - 950 cells/uL. The reference range was not used to interpret this result as normal/abnormal . # Eos (test code = 108 See_Comment [Automat ed message] 1-2) The system [employer] generated this result transmit lisa reference range : 15 - 500 cells/uL. The reference range was not used to interpret this result as normal/abnormal . # Baso (test code = 58 See_Comment [Automa lisa message] 4-7) The system [employer] generated this result transmit lisa reference range [...] 20191218) Lab Interpretation (test Abnormal code = 71594-8) [facility] TI[facility], % sat. (without ferritin)2022-01-08 09:52:00 Test Item Value Reference Range Interpretation Comments Iron (test code = 21 See_Comment L [Automate d message] ) The system [employer] generated this result transmitted ref erence range: 50 - 180 mcg/dL. The ref erence range was not u sed to interpret this result as normal/abnor mal. Iron Bind.Cap.(TIBC) 309 See_Comment [Autom ated message] (test code = 8498732) The sy stem which generated this result transmitted ref erence range: 250 - 42 5 mcg/dL (calc). The reference range was not used to int erpret this result as normal/abnormal . Iron % Saturation (test 7 See_Comment L [Au tomated message] code = 2702430) The system [employer] [facility] generated this result transmitted ref erence range: 20 - 48 % (calc). The ref erence range was not u sed to interpret this result as normal/abnor mal. Lab Interpretation (test Abnormal code = 55128-1) [facility] [id number] 09:52:00 Test Item Value Reference Range Interpretation Comments Platelet Estimate (test code = DECREASED ADEQUATE A 89355-8) Lab Interpretation (test code = Abnormal 15539-2) [facility]2022-[facility]13 09:52:00 Test Item Value Reference Range Interpretation Comments Ferritin, Serum (test code = 2276-4) 16 ng/mL 24-380 L Lab Interpretation (test code = Abnormal 27206-7) [facility] + automated [id number] 09:52:00 Test Item Value Reference Range Interpretation Comments WBC (test code = 7.2 See_Comment [Automated message] ) The system [employer] generated this result transmit lisa reference range : 3.8 - 10.8 Thousand /uL. The reference r mela was not used to interpret this result as normal/abnormal . RBC (test code = 789-8) 4.03 See_Comment L [Au tomated message] The system [employer] generated this result transmit lisa reference range [...] L [Aut omated message] ) The system [employer] generated this result transmit lisa reference range : 140 - 400 Thousand/ uL. The reference r mela was not used to interpret this result as normal/abnormal . MPV (test code = 7.5-12.5 Due to plat elet or 8836541) RBC variability in size or shapeth e result cannot b e reported accura tely. # Neutros (test code = 4284 See_Comment [Aut omated message] 20191222) The system [employer] generated this result transmit lisa reference range : 1,500 - 7,800 cells/uL. The reference range was not used to interpret this result as normal/abnormal . # Lymphs (test code = 1879 See_Comment [Auto mated message] 731-0) The system [employer] generated this result transmit lisa reference range : 850 - 3,900 cells/u L. The reference r mela was not used to interpret this result as normal/abnormal . # Monos (test code = 871 See_Comment [Autom ated message] ) The system [employer] generated this result transmit lisa reference range : 200 - 950 cells/uL. The reference range was not used to interpret this result as normal/abnormal . # Eos (test code = 108 See_Comment [Automat ed message] 1-2) The system [employer] generated this result transmit lisa reference range : 15 - 500 cells/uL. The reference range was not used to interpret this result as normal/abnormal . # Baso (test code = 58 See_Comment [Automa lisa message] 4-7) The system [employer] generated this result transmit lisa reference range [...] 20191218) Lab Interpretation (test Abnormal code = 37616-4) [facility] TIBC, % sat. (without ferritin)2022-01-08 09:52:00 Test Item Value Reference Range Interpretation Comments Iron (test code = 21 See_Comment L [Automate d message] ) The system [employer] generated this result transmitted ref erence range: 50 - 180 mcg/dL. The ref erence range was not u sed to interpret this result as normal/abnor mal. Iron Bind.Cap.(TIBC) 309 See_Comment [Autom ated message] (test code = 7074368) The sy stem which generated this result transmitted ref erence range: 250 - 42 5 mcg/dL (calc). The reference range was not used to int erpret this result as normal/abnormal . Iron % Saturation (test 7 See_Comment L [Au tomated message] code = 1653305) The system [employer] [facility] generated this result transmitted ref erence range: 20 - 48 % (calc). The ref erence range was not u sed to interpret this result as normal/abnor mal. Lab Interpretation (test Abnormal code = 81882-3) [facility] [id number] 09:52:00 Test Item Value Reference Range Interpretation Comments Platelet Estimate (test code = DECREASED ADEQUATE A 00005-9) Lab Interpretation (test code = Abnormal 43488-4) [facility]2022-[facility] 09:52:00 Test Item Value Reference Range Interpretation Comments Ferritin, Serum (test code = 2276-4) 16 ng/mL 24-380 L Lab Interpretation (test code = Abnormal 34443-8) [facility] count + automated [id number] 09:52:00 Test Item Value Reference Range Interpretation Comments WBC (test code = 7.2 See_Comment [Automated message] ) The system [employer] generated this result transmit lisa reference range : 3.8 - 10.8 Thousand /uL. The reference r mela was not used to interpret this result as normal/abnormal . RBC (test code = 789-8) 4.03 See_Comment L [Au tomated message] The system [employer] generated this result transmit lisa reference range [...] L [Aut omated message] ) The system [employer] generated this result transmit lisa reference range : 140 - 400 Thousand/ uL. The reference r mela was not used to interpret this result as normal/abnormal . MPV (test code = 7.5-12.5 Due to plat elet or 5550224) RBC variability in size or shapeth e result cannot b e reported accura tely. # Neutros (test code = 4284 See_Comment [Aut omated message] 20191222) The system [employer] generated this result transmit lisa reference range : 1,500 - 7,800 cells/uL. The reference range was not used to interpret this result as normal/abnormal . # Lymphs (test code = 1879 See_Comment [Auto mated message] 731-0) The system [employer] generated this result transmit lisa reference range : 850 - 3,900 cells/u L. The reference r mela was not used to interpret this result as normal/abnormal . # Monos (test code = 871 See_Comment [Autom ated message] ) The system [employer] generated this result transmit lisa reference range : 200 - 950 cells/uL. The reference range was not used to interpret this result as normal/abnormal . # Eos (test code = 108 See_Comment [Automat ed message] 1-2) The system [employer] generated this result transmit lisa reference range : 15 - 500 cells/uL. The reference range was not used to interpret this result as normal/abnormal . # Baso (test code = 58 See_Comment [Automa lisa message] 4-7) The system [employer] generated this result transmit lisa reference range [...] 20191218) Lab Interpretation (test Abnormal code = 28562-6) [facility], % sat. (without ferritin)2022-01-08 09:52:00 Test Item Value Reference Range Interpretation Comments Iron (test code = 21 See_Comment L [Automate d message] ) The system [employer] generated this result transmitted ref erence range: 50 - 180 mcg/dL. The ref erence range was not u sed to interpret this result as normal/abnor mal. Iron Bind.Cap.(TIBC) 309 See_Comment [Autom ated message] (test code = 6829264) The sy stem which generated this result transmitted ref erence range: 250 - 42 5 mcg/dL (calc). The reference range was not used to int erpret this result as normal/abnormal . Iron % Saturation (test 7 See_Comment L [Au tomated message] code = 8513797) The system [employer] generated this result transmitted ref erence range: 20 - 48 % (calc). The ref erence range was not u sed to interpret this result as normal/abnor mal. Lab Interpretation (test Abnormal code = 08378-4) [facility] [id number] 09:52:00 Test Item Value Reference Range Interpretation Comments Platelet Estimate (test code = DECREASED ADEQUATE A 50018-9) Lab Interpretation (test code = Abnormal 98268-7) [facility] 09:52:00 Test Item Value Reference Range Interpretation Comments Ferritin, Serum (test code = 2276-4) 16 ng/mL 24-380 L Lab Interpretation (test code = Abnormal 35729-0) [facility] + automated [id number] 09:52:00 Test Item Value Reference Range Interpretation Comments WBC (test code = 7.2 See_Comment [Automated message] ) The system [employer] generated this result transmit lisa reference range : 3.8 - 10.8 Thousand /uL. The reference r mela was not used to interpret this result as normal/abnormal . RBC (test code = 789-8) 4.03 See_Comment L [Au tomated message] The system [employer] generated this result transmit lisa reference range [...] L [Aut omated message] ) The system [employer] generated this result transmit lisa reference range : 140 - 400 Thousand/ uL. The reference r mela was not used to interpret this result as normal/abnormal . MPV (test code = 7.5-12.5 Due to plat elet or 0443055) RBC variability in size or shapeth e result cannot b e reported accura tely. # Neutros (test code = 4284 See_Comment [Aut omated message] 20191222) The system [employer] generated this result transmit lisa reference range : 1,500 - 7,800 cells/uL. The reference range was not used to interpret this result as normal/abnormal . # Lymphs (test code = 1879 See_Comment [Auto mated message] 731-0) The system [employer] generated this result transmit lisa reference range : 850 - 3,900 cells/u L. The reference r mela was not used to interpret this result as normal/abnormal . # Monos (test code = 871 See_Comment [Autom ated message] ) The system [employer] generated this result transmit lisa reference range : 200 - 950 cells/uL. The reference range was not used to interpret this result as normal/abnormal . # Eos (test code = 108 See_Comment [Automat ed message] 441-2) The system [employer] generated this result transmit lisa reference range : 15 - 500 cells/uL. The reference range was not used to interpret this result as normal/abnormal . # Baso (test code = 58 See_Comment [Automa lisa message] 274-7) The system [employer] generated this result transmit lisa reference range [...] 20191218) Lab Interpretation (test Abnormal code = 25765-1) [facility] TIBC, % sat. (without ferritin)2022-01-08 09:52:00 Test Item Value Reference Range Interpretation Comments Iron (test code = 21 See_Comment L [Automate d message] ) The system [employer] generated this result transmitted ref erence [...] See_Comment L [Au tomated message] code = 1228847) The system w [facility] generated this result transmitted ref erence range: 20 - 48 % (calc). The ref erence range was not u sed to interpret this result as normal/abnor mal. Lab Interpretation (test Abnormal code = 52240-4) [facility] [id number] 09:52:00 Test Item Value Reference Range Interpretation Comments Platelet Estimate (test code = DECREASED ADEQUATE A 72909-1) Lab Interpretation (test code = Abnormal 77427-4) [facility]2022-[facility] 09:52:00 Test Item Value Reference Range Interpretation Comments Ferritin, Serum (test code = 2276-4) 16 ng/mL 24-380 L Lab Interpretation (test code = Abnormal 14965-8) [facility] + automated [id number] 09:52:00 Test Item Value Reference Range Interpretation Comments WBC (test code = 7.2 See_Comment [Automated message] ) The system [employer] generated this result transmit lisa reference range : 3.8 - 10.8 Thousand /uL. The reference r mela was not used to interpret this result as normal/abnormal . RBC (test code = 789-8) 4.03 See_Comment L [Au tomated message] The system [employer] generated this result transmit lisa reference range [...] L [Aut omated message] ) The system [employer] generated this result transmit lisa reference range : 140 - 400 Thousand/ uL. The reference r mela was not used to interpret this result as normal/abnormal . MPV (test code = 7.5-12.5 Due to plat elet or 1642784) RBC variability in size or shapeth e result cannot b e reported accura tely. # Neutros (test code = 4284 See_Comment [Aut omated message] 20191222) The system [employer] generated this result transmit lisa reference range : 1,500 - 7,800 cells/uL. The reference range was not used to interpret this result as normal/abnormal . # Lymphs (test code = 1879 See_Comment [Auto mated message] 731-0) The system [employer] generated this result transmit lisa reference range : 850 - 3,900 cells/u L. The reference r mela was not used to interpret this result as normal/abnormal . # Monos (test code = 871 See_Comment [Autom ated message] ) The system [employer] generated this result transmit lisa reference range : 200 - 950 cells/uL. The reference range was not used to interpret this result as normal/abnormal . # Eos (test code = 108 See_Comment [Automat ed message] 711-2) The system [employer] generated this result transmit lisa reference range : 15 - 500 cells/uL. The reference range was not used to interpret this result as normal/abnormal . # Baso (test code = 58 See_Comment [Automa lisa message] 704-7) The system [employer] generated this result transmit lisa reference range [...] 20191218) Lab Interpretation (test Abnormal code = 89009-2) [facility], % sat. (without ferritin)2022-01-08 09:52:00 Test Item Value Reference Range Interpretation Comments Iron (test code = 21 See_Comment L [Automate d message] 9159647) The system [employer] generated this result transmitted ref erence range: 50 - 180 mcg/dL. The ref erence range was not u sed to interpret this result as normal/abnor mal. Iron Bind.Cap.(TIBC) 309 See_Comment [Autom ated message] (test code = 1992302) The sy stem which generated this result transmitted ref erence range: 250 - 42 5 mcg/dL (calc). The reference range was not used to int erpret this result as normal/abnormal . Iron % Saturation (test 7 See_Comment L [Au tomated message] code = 1985126) The system [employer] [facility] generated this result transmitted ref erence range: 20 - 48 % (calc). The ref erence range was not u sed to interpret this result as normal/abnor mal. 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 The reference range was not used to interpret this result as normal/abnormal . MPV (test code = Not Measure d 75928-5) NRBC/100 WBC (test See_Comment [Automat ed code = 9441349409) message] The system which generated this result transmitted reference range : 0.0 - 10.0 /100 WBCs. The reference range was not used to interpret this result as normal/abnormal . NRBC x10^3 (test code See_Comment [Auto mated = 4394810146) message] The system which generated this result transmitted reference range : 10*3/?L. The reference range was not used to interpret this result as normal/abnormal . GRAN MAT (NEUT) % 85.5 % (test code = 770-8) IMM GRAN % (test code 0.50 % = 8164554160) LYMPH % (test code = 7.6 % 736-9) MONO % (test code = 5.8 % 5905-5) EOS % (test code = 0.1 % 713-8) BASO % (test code = 0.5 % 706-2) GRAN MAT x10^3(ANC) 9.28 10*3/uL 1.99-6.95 H (test code = 1964265878) IMM GRAN x10^3 (test 0.05 10*3/uL 0-0.06 code = 0312048708) LYMPH x10^3 (test 0.82 10*3/uL 1.09-3.23 L code = 731-0) MONO x10^3 (test code 0.63 10*3/uL 0.36-1.02 = 742-7) EOS x10^3 (test code 0.06-0.53 L = 711-2) BASO x10^3 (test code 0.05 10*3/uL 0.01-0.09 = 704-7) PLT ESTIMATE (test Decreased Normal A code = 9317-9) MADALYN (test code = MADALYN) No Platelet clumps seen Lab Interpretation Abnormal (test code = 82220-9) [facility] METABOLIC PANEL (NA, K, CL, CO2, GLUCOSE, BUN, CREATININE, CA)2021-12-26 21:51:09 Test Item Value Reference Range Interpretation Comments NA (test code = 134 mmol/L 135-145 L 1514529618) K (test code = 3.7 mmol/L 3.5-5 1427794832) CL (test code = 105 mmol/L 98-108 1350404974) CO2 TOTAL (test code = 21 mmol/L 23-31 L 8608661777) AGAP (test code = 2-16 3887711190) BUN (test code = 5 mg/dL 7-23 L 9243563195) GLUCOSE (test code = 257 mg/dL 70-110 H 3072481652) CREATININE (test code = 0.61 mg/dL 0.6-1.25 0290882322) CALCIUM (test code = 7.9 mg/dL 8.6-10.6 L 3974952221) eGFR (test code = mL/min/1.73m2 2780195511) MADALYN (test code = MADALYN) Association of [...] tests). Lab Interpretation Abnormal (test code = 34687-4) [facility] METABOLIC [id number] 13:28:32 Test Item Value Reference Range Interpretation [...] De scription 1092) sq m Result G1 Norm al or high >=90 G2 Mildly decreased 60-89 G3a Mildl y to moderately 45-5 9 G3b Moderately to s everely 30-44 G4 Severl y decreased 15-29 G5 Kidne y failure <15Reported eGF R is based on the CKD-EPI 2021 equation that d oes not use a race coefficientEsti mated GFR is not as accur ate as Creatinine Bonita fara in predicting glom erular filtration rate . Estimated GFR is not appl icable for dialysis patien ts Police Records Clerk ID - BSSpecimen slightly ictericHEPATIC FUNCTION [id number] 13:28:32 Test Item Value Reference Range Interpretation [...] (test code = 21 U/L 6-55 347) Police Records Clerk ID - BSSpecimen slightly ictericPROTHROMBIN TIME/[id number] 13:21:12 Test Item Value Reference Range Interpretation Comments PROTIME (BEAKER) 17.5 seconds 11.9-14.2 H (test code = 759) INR (BEAKER) (test 1.46 See_Comment [Automat ed message] code = 370) The system [employer] generated this result transmitted ref erence range: <=5.90. The reference range was not used to int erpret this result as normal/abnormal . RECOMMENDED COUMADIN/WARFARIN INR THERAPY RANGESSTANDARD DOSE: 2.0 - 3.0 Includes: PROPHYLAXIS for venous thrombosis, systemic embolization; TREATMENT for venous thrombosis and/or pulmonary embolus.HIGH RISK: Target INR is 2.5-3.5 for patients with mechanical heart valves.CBC W/PLT COUNT & AUTO [id number] 13:14:24 Test Item Value Reference Range Interpretation [...] (BEAKER) (test code = 2801) MR, ABDOMEN, [id number] 18:24:00REFERRING MD: ANIL SALVADOR Include Abdominal VesselsCH[facility] : 1955 Sex: MFINAL [...] Verified Date/Time: 12/08/2021 18:24:59 CT, CHEST, WITHOUT [id number] 12:41:00REFERRING MD: ANIL SALVADOR Mets work up [facility] : 1955 Sex: [...] right lower lobe nodule. Signed: Ankit Gaines [facility] Verified Date/Time: 12/08/2021 12:41:29 ALPHA FETOPROTEIN (AFP), TUMOR MARKER 2021-12-06 17:08:44 Test Item Value Reference Range Interpretation Comments ALPHA-FETOPROTEIN (BEAKER) (test 2.3 ng/mL <10.0 code = 1094) Police Records Clerk ID - DBBASIC METABOLIC [id number] 16:53:56 Test Item Value Reference Range Interpretation [...] S NOT APPLICABLE FOR DIALYSIS PATIEN TS. Police Records Clerk ID - BSSpecimen slightly ictericHEPATIC FUNCTION [id number] 16:53:56 Test Item Value Reference Range Interpretation [...] (test code = 22 U/L 6-55 347) Police Records Clerk ID - BSSpecimen slightly ictericPROTHROMBIN TIME/[id number] 16:43:33 Test Item Value Reference Range Interpretation Comments PROTIME (BEAKER) 17.0 seconds 11.9-14.2 H (test code = 759) INR (BEAKER) (test 1.40 See_Comment [Automat ed message] code = 370) The system [employer] generated this result transmitted ref erence range: <=5.90. The reference range was not used to int erpret this result as normal/abnormal . RECOMMENDED COUMADIN/WARFARIN INR THERAPY RANGESSTANDARD DOSE: 2.0 - 3.0 Includes: PROPHYLAXIS for venous thrombosis, systemic embolization; TREATMENT for venous thrombosis and/or pulmonary embolus.HIGH RISK: Target INR is 2.5-3.5 for patients with mechanical heart valves.CBC W/PLT COUNT & AUTO [id number] 16:42:35 Test Item Value Reference Range Interpretation [...] = 2801) MR, MRI, METASTATIC SURVEY/BONE MARROW [id number] 13:54:00REFERRJB GOMEZ: ANIL SALVADOR Mets work up Reason for Exam:->hcc, cirrhosis [facility] : 1955 Sex: MFINAL [...] Royal Verified Date/Time: 12/06/2021 13:54:32 Reading Location: [facility] C013X [facility] Consult Reading Room HEREDITARY [id number] 10:46:31 Test Item Value Reference Interpretation Comments Range DNA Mutation See Below RESULT: NEGATIV E Analysis Interpretation: DNA testing (test code = indicates that this individual 9929639) isnegative for the C282Y and H63D pathogenic [...] hogenic variants in the HFEgene, C282Y (NM 613037.2: c .845G>A, p.Fte292Ztk) an d H63D (BB775831.2: c. 187C>G, p.Uov03Rvx), th at are commonly associated with HH. [...] ca re providers, please contact your local inFreeDAti 'genetic counselor or marlene myers [phone] ( [phone] forassistance with the interp retation of these results. This test was developed and i ts analytical performancechar acteristics have been deter mined by [employer] [facility]. It has not been cleare d or approved by[facility]. This ass ay has been validated pursu ant to the CLIA regulationsand is used for clinical purpos es. For more information, pl ease refer tohttp://educat [email or web address].com/faq/h emochromatosis. (This linkis be ing provided for information al/educational purposes only.) Reviewed and signed by Liane Phillips MD, MHA , ARNEL, CGNUBIAS, Signed on 09/09 at 10:42 MADALYN (test Performing Lab code = MADALYN) EZ [employer] [facility] [address] [place] [address] Aung Salazar MD, PhD, SANDRA [facility] HospitalHEREDITARY [id number] 10:46:31 Test Item Value Reference Interpretation Comments Range DNA Mutation See Below RESULT: NEGATIV E Analysis Interpretation: DNA testing (test code = indicates that this individual 1465740) isnegative for the C282Y and H63D pathogenic [...] hogenic variants in the HFEgene, C282Y (NM 023588.2: c .845G>A, p.Bjn193Lmv) an d H63D (IP637391.2: c. 187C>G, p.Bhw30Zfi), th at are commonly associated with HH. [...] your local [facility] 'genetic counselor or [facility] [phone] ( ) forassistance with the interp retation of these results. This test was developed and i ts analytical performancechar acteristics have been deter mined by [employer] [facility] [place]. It has not been cleare d or approved byA. This ass ay has been validated pursu ant to the CLIA regulationsand is used for clinical purpos es. For more information, pl ease refer tohttp://educat [email or web address].com/faq/h emochromatosis. (This linkis be ing provided for information al/educational purposes only.) Reviewed and signed by Liane Phillips MD, MHA , FACMG, CGMBS, Signed on 09/09 at 10:42 MADALYN (test Performing Lab code = MADALYN) EZ [employer] [facility] [address] [place] [address] Aung Salazar MD, PhD, SANDRA [facility] HospitalHEREDITARY [id number] 10:46:31 Test Item Value Reference Interpretation Comments Range DNA Mutation See Below RESULT: NEGATIV E Analysis Interpretation: DNA testing (test code = indicates that this individual 9429207) isnegative for the C282Y and H63D pathogenic [...] hogenic variants in the HFEgene, C282Y (NM 866797.2: c .845G>A, p.Ylp774Dli) an d H63D (JX477581.2: c. 187C>G, p.Oss03Zki), th at are commonly associated with HH. [...] ca re providers, please contact your local inFreeDAti 'genetic counselor or [facility] [phone] ( ) forassistance with the interp retation of these results. This test was developed and i ts analytical performancechar acteristics have been deter mined by [employer] [facility]. It has not been cleare d or approved [facility]. This ass ay has been validated pursu ant to the CLIA regulationsand is used for clinical purpos es. For more information, pl ease refer tohttp://educat ion.[employer]is.com/faq/h emochromatosis. (This linkis be ing provided for information al/educational purposes only.) Reviewed and signed by Liane Phillips MD, MHA , FACMG, CGMBS, Signed on 09/09 at 10:42 MADALYN (test Performing Lab code = MADALYN) EZ [employer] [facility] [address] [place] [address] Aung Salazar MD, PhD, SANDRA [facility] HospitalHEREDITARY [id number] 10:46:31 Test Item Value Reference Interpretation Comments Range DNA Mutation See Below RESULT: NEGATIV E Analysis Interpretation: DNA testing (test code = indicates that this individual 3850976) isnegative for the C282Y and H63D pathogenic [...] hogenic variants in the HFEgene, C282Y (NM 952354.2: c .845G>A, p.Xxt858Bfy) an d H63D (IO150018.2: c. 187C>G, p.Jzu96Qin), th at are commonly associated with HH. [...] providers, please contact your local [facility] cs'genetic counselor or marlene [phone] ( ) forassistance with the interp retation of these results. This test was developed and i ts analytical performancechar acteristics have been deter mined by [employer] [facility]. It has not been cleare d or approved byA. This ass ay has been validated pursu ant to the CLIA regulationsand is used for clinical purpos es. For more information, pl ease refer tohttp://educat ion.Browsarity.redealize/faq/h emochromatosis. (This linkis be ing provided for information al/educational purposes only.) Reviewed and signed by Liane Phillips MD, MHA , FAC, CGMBS, Signed on 09/09 at 10:42 MADALYN (test Performing Lab code = MADALYN) [employer] [facility] [address] [place] [address] Aung Salazar MD, PhD, SANDRA [facility] HospitalHEREDITARY [id number] 10:46:31 Test Item Value Reference Interpretation Comments Range DNA Mutation See Below RESULT: NEGATIV E Analysis Interpretation: DNA testing (test code = indicates that this individual 1386404) isnegative for the C282Y and H63D pathogenic [...] hogenic variants in the HFEgene, C282Y (NM 582018.2: c .845G>A, p.Zot252Pdf) an d H63D (GD676701.2: c. 187C>G, p.Liq62Tdp), th at are commonly associated with HH. [...] your local [facility] 'genetic counselor or [facility] [phone] ( ) forassistance with the interp retation of these results. This test was developed and i ts analytical performancechar acteristics have been deter mined by [employer] [facility] [place]. It has not been cleare d or approved [facility]. This ass ay has been validated pursu ant to the CLIA regulationsand is used for clinical purpos es. For more information, pl ease refer tohttp://educat ion.Twengadiagno Punctils.com/faq/h emochromatosis. (This linkis be ing provided for information al/educational purposes only.) Reviewed and signed by Liane Phillips MD, MHA , FACMG, CGMBS, Signed on 09/09 at 10:42 MADALYN (test Performing Lab code = MADALYN) EZ [employer] [facility] [address] [place] [address] Aung Salazar MD, PhD, SANDRA [facility] HospitalMR, ABDOMEN, [id number] 14:51:00REFERRING MD: ANIL LEROYT Include Abdominal Vessels [facility] : 1955 Sex: [...] hernia, slightly increased in size Signed: Stefano [facility] Verified Date/Time: 09/01/2021 14:51:17 CT, CHEST, WITHOUT [id number] 16:16:00REFERRING MD: ANIL SALVADOR Mets work up [facility] : 1955 [...] lower lobe groundglass nodule. Signed: Ankit Gaines [facility] Verified Date/Time: 08/31/2021 16:16:00 Reading Location: [facility] ALPHA FETOPROTEIN (AFP), TUMOR MARKER 2021-08-26 11:47:11 Test Item Value Reference Range Interpretation Comments ALPHA-FETOPROTEIN (BEAKER) (test code < ng/mL <10.0 = 1094) Police Records Clerk ID - BSBASI METABOLIC [id number] 11:20:03 Test Item Value Reference Range Interpretation [...] S NOT APPLICABLE FOR DIALYSIS PATIEN TS. Police Records Clerk ID - KRISHNA Mcintyreimekaz slightly ictericHEPATIC FUNCTION [id number] 11:20:03 Test Item Value Reference Range Interpretation [...] (test code = 26 U/L 6-55 347) Police Records Clerk ID Andrea Isaac slightly ictericPROTHROMBIN TIME/[id number] 10:58:57 Test Item Value Reference Range Interpretation Comments PROTIME (BEAKER) 17.2 seconds 11.9-14.2 H (test code = 759) INR (BEAKER) (test 1.42 See_Comment [Automat ed message] code = 370) The system [employer] generated this result transmitted ref erence range: <=5.90. The reference range was not used to int erpret this result as normal/abnormal . RECOMMENDED COUMADIN/WARFARIN INR THERAPY RANGESSTANDARD DOSE: 2.0 - 3.0 Includes: PROPHYLAXIS for venous thrombosis, systemic embolization; TREATMENT for venous thrombosis and/or pulmonary embolus.HIGH RISK: Target INR is 2.5-3.5 for patients with mechanical heart valves.CBC W/PLT COUNT & AUTO [id number] 10:56:22 Test Item Value Reference Range Interpretation [...] (BEAKER) (test code = 2801) Comprehensive metabolic [id number] 16:54:00 Test Item Value Reference Range Interpretation Comments Glucose (test code = 157 mg/dL 65-99 H Fastin g reference 7506629) interval For so karla without known diabetes, [...] mal. Sodium (test code = 137 mmol/L 135-860 1587805) Potassium, Serum 3.8 mmol/L 3.5-5.3 (test code = 20101014) Chloride (test code = 107 mmol/L 98-432 1905350) Carbon Dioxide, Total 22 mmol/L 20-32 (test code = ) Calcium, Serum (test 8.1 mg/dL 8.6-10.3 L code = 20100926) Protein, Total, Serum 6.0 g/dL 6.1-8.1 L (test code = 20101003) Albumin (test code = 3.0 g/dL 3.6-5.1 L ) GLOBULIN (QUEST) 3.0 See_Comment [Automated message] (test code = 6370106) The sy stem which generated this result [...] 1.4 mg/dL 0.2-1.2 H (test code = 8742316) Alkaline Phosphatase, 103 U/L 35-144 S (test code = 6768-6) AST (SGOT) (test code 24 U/L 10-35 = 20101009) ALT (SGPT) (test code 15 U/L 9-46 = ) Lab Interpretation Abnormal (test code = 32014-9) [facility] HospitalCom[facility] metabolic [id number] 16:54:00 Test Item Value Reference Range Interpretation Comments Glucose (test code = 157 mg/dL 65-99 H Fastin g reference 1821440) interval For so meone without known diabetes, a glucosevalue >1 25 mg/dL indicates that they may havedi abetes and this should be confirmed with afollow-up test . BUN (test code = 7 mg/dL -25 20100929) Creatinine (test code 0.63 mg/dL 0.70-1.25 L For pa eulas >49 years = 20130722) of age, the ref erence limitfor Creati nine is approximately 1 3% higher for peopleidentifie d as -Christelle n. eGFR If NonAfricn Am 104 See_Comment [Autom ated message] (test code = 0375515) The sy stem which generated this result transmitted ref erence range: > OR = 6 0 mL/min/1.73m2. The reference range was not used to int erpret this result as normal/abnormal . eGFR If Africn Am 121 See_Comment [Automate d message] (test code = 2614728) The sy stem which generated this result [...] mal. Sodium (test code = 137 mmol/L 135-547 2734923) Potassium, Serum 3.8 mmol/L 3.5-5.3 (test code = 20101014) Chloride (test code = 107 mmol/L 98-856 5546511) Carbon Dioxide, Total 22 mmol/L 20-32 (test code = ) Calcium, Serum (test 8.1 mg/dL 8.6-10.3 L code = 20100926) Protein, Total, Serum 6.0 g/dL 6.1-8.1 L (test code = 20101003) Albumin (test code = 3.0 g/dL 3.6-5.1 L ) GLOBULIN (QUEST) 3.0 See_Comment [Automated message] (test code = 1537316) The sy stem which generated this result [...] ) Lab Interpretation Abnormal (test code = 73692-8) [facility]Com[facility] [id number] 16:54:00 Test Item Value Reference Range Interpretation Comments Glucose (test code = 157 mg/dL 65-99 H Fastin g reference 7309256) interval For so karla without known diabetes, a glucosevalue >1 25 mg/dL indicates that they may havedi abetes and this should be confirmed with afollow-up test . BUN (test code = 7 mg/dL 7-20100929) Creatinine (test code 0.63 mg/dL 0.70-1.25 L For pa julianents >49 years = 20130722) of age, the [...] mal. Sodium (test code = 137 mmol/L 135-558 1910880) Potassium, Serum 3.8 mmol/L 3.5-5.3 (test code = 20101014) Chloride (test code = 107 mmol/L 98-410 3666391) Carbon Dioxide, Total 22 mmol/L 20-32 (test code = ) Calcium, Serum (test 8.1 mg/dL 8.6-10.3 L code = 20100926) Protein, Total, Serum 6.0 g/dL 6.1-8.1 L (test code = 20101003) Albumin (test code = 3.0 g/dL 3.6-5.1 L ) GLOBULIN (QUEST) 3.0 See_Comment [Automated message] (test code = 1015755) The sy stem which generated this result [...] ) Lab Interpretation Abnormal (test code = 39845-4) [facility]Com[facility] [id number] 16:54:00 Test Item Value Reference Range Interpretation Comments Glucose (test code = 157 mg/dL 65-99 H Fastin g reference 4336825) interval For so meone without known diabetes, [...] See_Comment [Autom ated message] (test code = 8915910) The sy stem which generated this result transmitted ref erence range: > OR = 6 0 mL/min/1.73m2. The reference range was not used to int erpret this result as normal/abnormal . eGFR If Africn Am 121 See_Comment [Automate d message] (test code = 3011845) The sy stem which generated this result [...] mal. Sodium (test code = 137 mmol/L 135-075 6007629) Potassium, Serum 3.8 mmol/L 3.5-5.3 (test code = 20101014) Chloride (test code = 107 mmol/L 98-190 7017153) Carbon Dioxide, Total 22 mmol/L 20-32 (test code = ) Calcium, Serum (test 8.1 mg/dL 8.6-10.3 L code = 20100926) Protein, Total, Serum 6.0 g/dL 6.1-8.1 L (test code = 20101003) Albumin (test code = 3.0 g/dL 3.6-5.1 L ) GLOBULIN (QUEST) 3.0 See_Comment [Automated message] (test code = 5165973) The sy stem which generated this result [...] ) Lab Interpretation Abnormal (test code = 19125-8) [facility]Com[facility] [id number] 16:54:00 Test Item Value Reference Range Interpretation Comments Glucose (test code = 157 mg/dL 65-99 H Fastin g reference 4299257) interval For so karla without known diabetes, [...] See_Comment [Autom ated message] (test code = 9921564) The sy stem which generated this result transmitted ref erence range: 6 - 22 ( calc). The reference r mela was not used to interpret this result as normal/abnor mal. Sodium (test code = 137 mmol/L 135-943 5900315) Potassium, Serum 3.8 mmol/L 3.5-5.3 (test code = 20101014) Chloride (test code = 107 mmol/L 98-286 5518554) Carbon Dioxide, Total 22 mmol/L 20-32 (test code = ) Calcium, Serum (test 8.1 mg/dL 8.6-10.3 L code = 20100926) Protein, Total, Serum 6.0 g/dL 6.1-8.1 L (test code = 20101003) Albumin (test code = 3.0 g/dL 3.6-5.1 L ) GLOBULIN (QUEST) 3.0 See_Comment [Automated message] (test code = 6331651) The sy stem which generated this result [...] 1.4 mg/dL 0.2-1.2 H (test code = 4769998) Alkaline Phosphatase, 103 U/L 35-144 S (test code = 6768-6) AST (SGOT) (test code 24 U/L 10-35 = 20101009) ALT (SGPT) (test code 15 U/L 9-46 = ) Lab Interpretation Abnormal (test code = 03566-6) [facility] HospitalMR, ABDOMEN, [id number] 14:52:00REFERRING : ANIL SALVADOR Include Abdominal Vessels [facility] : 1955 Sex: [...] Mckeon Verified Date/Time: 05/03/2021 14:52:21 Reading Location: [address] Transitional Reading Room CT, CHEST, WITHOUT CONTRAST 2021-04-29 16:45:00REFERRING MD: ANIL SALVADOR Mets work up [facility] : 1955 Sex: [...] Dios Verified Date/Time: 04/29/2021 16:45:28 Reading Location: [facility] C013Y CT Body Reading Room BONE AND/OR JOINT IMAGING, WHOLE [id number] 14:33:00REFERRING MD: ANIL SALVADOR METS [facility]ONA : 1955 Sex: MFINAL REPORT PROCEDURE: BONE SCAN, WHOLE BODY CPT CODE: 37204 INDICATION: HCC PROTOCOL: 21.8 mCi of Tc-99m [...] Tami Owen Verified Date/Time: 04/29/2021 14:33:51 Reading Location:[address] [address] Reading Room Basic Metabolic [id number] 12:07:01 Test Item Value Reference Range Interpretation [...] Calcium (test code = 8.9 mg/dL 8.4-10.2 14277-1) EGFR (test code = 95 mL/min/1.73 [place] [address]-5) NOT ACCURATE CREATININE CLEARANCE IN PREDICTING GLOMERULAR FILTRATION RATE . ESTIMATED GFR I S NOT APPLICABLE FOR DIALYSIS PATIENTS. MADALYN (test code = MADALYN) Police Records Clerk ID - ELOY MSpecimen slightly icteric Lab Interpretation Abnormal (test code = 69427-3) [facility] HospitalHepatic function [id number] 12:07:01 Test Item Value Reference Range Interpretation Comments Protein, Total (test 7.3 See_Comment [Autom ated code = 2885-2) message] The system which generated this result transmitted reference range : 6.0 - 8.3 gm/dL . The reference range was not used to interpr et this result as normal/abnormal . Albumin (test code = 3.3 g/dL 3.5-5.0 L 16022-9) Total Bilirubin (test 1.8 mg/dL 0.2-1.2 H code = 1974-2) Bilirubin, Direct 0.8 mg/dL 0.1-0.5 H (test code = 1967-7) Alkaline Phosphatase 148 U/L 40-150 (test code = 6768-6) AST (test code = 31 U/L 5-34 1920-8) ALT (test code = 23 U/L 6-55 1742-6) MADALYN (test code = MADALYN) Police Records Clerk ID Andrea Handy slightly icteric Lab Interpretation Abnormal (test code = 99760-8) [facility] HospitalBASIC METABOLIC [id number] 12:07:01 Test Item Value Reference Range Interpretation [...] S NOT APPLICABLE FOR DIALYSIS PATIEN TS. Police Records Clerk ID Andrea Adamesecgarrett slightly ictericHEPATIC FUNCTION [id number] 12:07:01 Test Item Value Reference Range Interpretation [...] (test code = 23 U/L 6-55 347) Police Records Clerk ID - ELOY MSpecimen slightly ictericAlpha fetoprotein (AFP), tumor [id number] 11:59:44 Test Item Value Reference Range Interpretation Comments Alpha-Fetoprotein (test 2.5 ng/mL <10.0 code = 1834-1) MADALYN (test code = MADALYN) Police Records Clerk ID - EOLY Butler Lab Interpretation (test Normal code = 05825-2) [facility] HospitalALPHA FETOPROTEIN (AFP), TUMOR [id number] 11:59:44 Test Item Value Reference Range Interpretation Comments ALPHA-FETOPROTEIN (BEAKER) (test 2.5 ng/mL <10.0 code = 1094) Police Records Clerk ID Andrea LYONS MProthrombin time/[id number] 11:32:54 Test Item Value Reference Interpretation Comments Range Protime (test code = 15.7 See_Comment H [Autom ated 1072-2) message] The system which generated this result transmitted reference range : 11.9 - 14.2 seconds. The reference range was not used to interpret this result as normal/abnormal . INR (test code = 1.27 See_Comment [Automated 5241-6) message] The system which generated this result [...] valves. Lab Interpretation Abnormal (test code = 59991-0) [facility] HospitalPROTHROMBIN TIME/[id number] 11:32:54 Test Item Value Reference Range Interpretation Comments PROTIME (BEAKER) 15.7 seconds 11.9-14.2 H (test code = 759) INR (BEAKER) (test 1.27 See_Comment [Automat ed message] code = 370) The system [employer] ROLI generated this result transmitted ref erence range: <=5.90. The reference range was not used to int erpret this result as normal/abnormal . RECOMMENDED COUMADIN/WARFARIN INR THERAPY RANGESSTANDARD DOSE: 2.0 - 3.0 Includes: PROPHYLAXIS for venous thrombosis, systemic embolization; TREATMENT for venous thrombosis and/or pulmonary embolus.HIGH RISK: Target INR is 2.5-3.5 for patients with mechanical heart valves.CBC with platelet count + automated [id number] 11:25:26 Test Item Value Reference Range Interpretation Comments WBC (test code = 6690-2) 6.3 See_Comment [A utomated message] The system [employer] generated this result transmitted ref erence range: 3.5 - 10 .5 K/L. The refe rence range was not u sed to interpret this result as normal/abnor mal. RBC (test code = 789-8) 4.40 See_Comment L [Au tomated message] The system [employer] generated this result transmitted ref erence range: 4.63 - 6 .08 M/L. The refe rence range was not u sed to interpret this result as normal/abnor mal. MCHC (test code = 786-4) 29.8 See_Comment L [A utomated message] The system [employer] generated this result transmitted ref erence range: [...] L [Aut omated message] 777-3) The system [employer] generated this result transmitted ref erence range: 150 - 45 0 K/CU MM. The referen ce range was not u sed to interpret this result as normal/abnor mal. MPV (test code = [place] [address]07-7) to abnormal Pollo telet population distribution. nRBC (test code = 413) 0 See_Comment [Aut omated message] The system [employer] generated this result transmitted ref erence range: [...] See_Comment [Aut omated message] 670) The system [employer] generated this result transmitted ref erence range: 1.78 - 5 .38 K/L. The refe rence range was not u sed to interpret this result as normal/abnor mal. # Lymphs (test code = 1.92 See_Comment [Auto mated message] 414) The system [employer] generated this result transmitted ref erence range: 1.32 - 3 .57 K/L. The refe rence range was not u sed to interpret this result as normal/abnor mal. # Monos (test code = 0.60 See_Comment [Autom ated message] 415) The system [employer] generated this result transmitted ref erence range: 0.30 - 0 .82 K/L. The refe rence range was not u sed to interpret this result as normal/abnor mal. # Eos (test code = 416) 0.11 See_Comment [Au tomated message] The system [employer] generated this result transmitted ref erence range: 0.04 - 0 .54 K/L. The refe rence range was not u sed to interpret this result as normal/abnor mal. # Baso (test code = 417) 0.05 See_Comment [A utomated message] The system [employer] generated this result transmitted ref erence range: 0.01 - 0 .08 K/L. The refe rence range was not u sed to interpret this result as normal/abnor mal. Immature 0 % 0-1 Granulocytes-Relative (test code = 2801) Lab Interpretation (test Abnormal code = 96870-9) [facility] W/PLT COUNT & AUTO [id number] 11:25:26 Test Item Value Reference Range Interpretation [...] PERCENT (BEAKER) (test code = 2801) TROPONIN [id number] 19:45:34 Test Item Value Reference Interpretation Comments Range TROPONIN I (test 0.004 ng/mL See_Comment [Automated code = 0294003503) message] The system which generated this result [...] biotin. Lab Interpretation Normal (test code = 96247-1) [facility] WITH [id number] 19:42:16 Test Item Value Reference Range Interpretation Comments WBC (test code = See_Comment [Automated 3754-2) message] The sy stem which generated this result transmitted reference range : 4.20 - 10.70 10*3/?L. The reference range was not used to interpret this result as normal/abnormal . RBC (test code = See_Comment [Automated 490-8) message] The sy stem which generated this [...] (test code = 55.0 fL 38.5-51.6 H 29696-6) RDW-CV (test code = 21.7 % 12.1-15.4 H 788-0) PLT (test code = See_Comment L [Automated 777-3) message] The sy stem which generated this result transmitted reference range : 150 - 328 10*3/ ?L. The reference r mela was not used to interpret this result as normal/abnormal . MPV (test code = Not Measure d 35331-7) IPF % (test code = 3.2 % 1.2-10.7 Platelet count 0321318132) measured by fluorescence method. NRBC/100 WBC (test See_Comment [Automat ed code = 7945815146) message] The system which generated this result transmitted reference range : 0.0 - 10.0 /100 WBCs. The refer ence range was not u sed to interpret th is result as normal/abnormal . NRBC x10^3 (test code <0.01 See_Comment [Auto mated = 6324754797) message] The s ystem which generated this result transmitted reference range : 10*3/?L. The reference range was not used to interpret this result as normal/abnormal . GRAN MAT (NEUT) % 42.9 % (test code = 770-8) IMM GRAN % (test code 0.60 % = 4554464745) LYMPH % (test code = 38.0 % 736-9) MONO % (test code = 14.2 % 5905-5) EOS % (test code = 3.3 % 713-8) BASO % (test code = 1.0 % 706-2) GRAN MAT x10^3(ANC) 2.24 10*3/uL 1.99-6.95 (test code = 6143585582) IMM GRAN x10^3 (test 0.03 10*3/uL 0.00-0.06 code = 8212733168) LYMPH x10^3 (test code 1.98 10*3/uL 1.09-3.23 = 731-0) MONO x10^3 (test code 0.74 10*3/uL 0.36-1.02 = 742-7) EOS x10^3 (test code = 0.17 10*3/uL 0.06-0.53 711-2) BASO x10^3 (test code 0.05 10*3/uL 0.01-0.09 = 704-7) Lab Interpretation Abnormal (test code = 68575-2) [facility]. METABOLIC PANEL (17309)2021-04-01 19:34:12 Test Item Value Reference Range Interpretation Comments NA (test code = 135 mmol/L 135-145 6160359547) K (test code = 3.8 mmol/L 3.5-5.0 2272346882) CL (test code = 104 mmol/L 98-108 2792046173) CO2 TOTAL (test code = 23 mmol/L 23-31 8546047050) AGAP (test code = 2-16 1211607558) BUN (test code = 9 mg/dL 7-23 1557869050) GLUCOSE (test code = 195 mg/dL 70-110 H 8507314908) CREATININE (test code = 0.65 mg/dL 0.60-1.25 6879032199) TOTAL BILI (test code = 1.3 mg/dL 0.1-1.1 H 8373301970) CALCIUM (test code = 8.2 mg/dL 8.6-10.6 L 6954932576) T PROTEIN (test code = 6.6 g/dL 6.3-8.2 3524142573) ALBUMIN (test code = 2.9 g/dL 3.5-5.0 L 4514870715) ALK PHOS (test code = 143 U/L 34-122 H 4916047440) ALTv (test code = 28 U/L 5-50 1742-6) AST(SGOT) (test code = 47 U/L 13-40 H 3004426002) eGFR (test code = mL/min/1.73m2 0551172849) MADALYN (test code = MADALYN) Association of [...] tests). Lab Interpretation Abnormal (test code = 18185-0) [facility], [id number] 19:32:52 Test Item Value Reference Range Interpretation Comments AMMONIA (test code = 3933597102) 48 umol/L 9-33 H Lab Interpretation (test code = Abnormal 21218-3) [facility] CenterPROTHROMBIN TIME / [id number] 19:01:25 Test Item Value Reference Range Interpretation Comments PROTIME PATIENT (test See_Comment H [Auto mated message] code = 5964-2) The system [employer] generated this result transmitted ref erence range: 12.0 - 1 4.7 Seconds. The reference range was not used to int erpret this result as normal/abnormal . INR (test code = 6301-6) Nor mal INR <1.1; Warfarin Therap eutic range 2.0 to 3. 0 or 2.5 to 3.5, dep ending upon the indica tions. Lab Interpretation (test Abnormal code = 20531-7) [facility] CenterANG, EMBOLIZATION, EXTENSIVE - ARTERIAL 2021-03-12 14:48:00REFERRJB GOMEZ: ANIL SALVADOR For TACEReason for Exam:- >hcc, hcvHUN[facility]ENTERName: [facility]AL[facility]ARDONA : 1955 Sex: [...] blood loss: < 5 cc. Specimen: None. winch truck operator: Carolyn. Hearing Instrument Specialist: Dilip. Fluoroscopy Time: 14.1 min. Dose (Ka,r): [...] accessed using a micropuncture set. A 5 Emirati sheath was placed. Diagnostic mesenteric angiogram was performed to access vessel patency and exclude arterio-portal shunting. A 5 Emirati Anaya catheter which was used to select the celiac trunk for a DSA run. A 3 Emirati microcatheter was advanced coaxially through the Anaya [...] closure device. Signed: Anthony Jaime MDReport Verified Date/Time:03/12/2021 14:48:55 Reading Location: [facility] P048 Angio Body Reading Room HEPATIC FUNCTION [...] (test code = 19 U/L 6-55 347) Police Records Clerk ID - EMERSONSpecimen slightly ictericBASIC METABOLIC [id number] 07:40:33 Test Item Value Reference Range Interpretation [...] S NOT APPLICABLE FOR DIALYSIS PATIEN TS. Police Records Clerk ID - EMERSONSpecimen slightly ictericPROTHROMBIN TIME/[id number] 07:22:36 Test Item Value Reference Range Interpretation Comments PROTIME (BEAKER) 16.9 seconds 11.9-14.2 H (test code = 759) INR (BEAKER) (test 1.40 See_Comment [Automat ed message] code = 370) The system [employer] generated this result transmitted ref erence range: <=5.90. The reference range was not used to int erpret this result as normal/abnormal . RECOMMENDED COUMADIN/WARFARIN INR THERAPY RANGESSTANDARD DOSE: 2.0 - 3.0 Includes: PROPHYLAXIS for venous thrombosis, systemic embolization; TREATMENT for venous thrombosis and/or pulmonary embolus.HIGH RISK: Target INR is 2.5-3.5 for patients with mechanical heart valves.CBC W/PLT COUNT & AUTO [id number] 07:09:25 Test Item Value Reference Range Interpretation [...] (BEAKER) (test code = 2801) BASIC METABOLIC [id number] 10:56:30 Test Item Value Reference Range Interpretation [...] S NOT APPLICABLE FOR DIALYSIS PATIEN TS. Police Records Clerk ID - AMADOR FSpecimen slightly ictericHEPATIC FUNCTION [...] (test code = 28 U/L 6-55 347) Police Records Clerk ID - AMADOR calix [id number] 10:28:14 Test Item Value Reference Range Interpretation Comments PARTIAL THROMBOPLASTIN TIME 34.9 seconds 22.5-36.0 (BEAKER) (test code = 760) PROTHROMBIN TIME/[id number] 10:27:34 Test Item Value Reference Range Interpretation Comments PROTIME (BEAKER) 17.4 seconds 11.9-14.2 H (test code = 759) INR (BEAKER) (test 1.45 See_Comment [Automat ed message] code = 370) The system [employer] generated this result transmitted ref erence range: <=5.90. The reference range was not used to int erpret this result as normal/abnormal . RECOMMENDED COUMADIN/WARFARIN INR THERAPY RANGESSTANDARD DOSE: 2.0 - 3.0 Includes: PROPHYLAXIS for venous thrombosis, systemic embolization; TREATMENT for venous thrombosis and/or pulmonary embolus.HIGH RISK: Target INR is 2.5-3.5 for patients with mechanical heart valves.CBC W/PLT COUNT & AUTO [id number] 10:14:45 Test Item Value Reference Range Interpretation [...] (BEAKER) (test code = 2801) MR, ABDOMEN, [id number] 12:00:00REFERRING MD: ANIL LEROYT Include Abdominal VesselsHUNTINGTON BEACH [facility]ENTERName: KALEN CARDONA : 1955 Sex: [...] V (series 3, image 22) is likely client relations representative of a cyst, unchanged.*An 11 mm [...] thrombus. Patent main portal vein. Signed: Stefano Mckeonort Verified Date/Time: 01/25/2021 12:00:12 Reading Location: [facility] C0[facility] Transitional Reading Room Hepatitis C RNA Quantitative 2021-01-22 16:10:00 Test Item Value Reference Range Interpretation Comments HCV PCR, Quantitative HCV RNA not detected HCV RNA not (test code = 12421-2) detected MADALYN (test code = MADALYN) This test uses a Real-Time Polymerase Chain Reaction (RT-PCR) methodology and was performed using K[employer] Ampliprep/KHOA TaqMan HCV test kit version 2.0 ([employer]). Reportable range for this assay is 15 - 100,000,000 IU per mL (1.18 - 8.00 Log IU/mL). Lab Interpretation Normal (test code = 66554-4) [facility] HospitalHEPATITIS C PCR, [id number] 16:10:00 Test Item Value Reference Range Interpretation Comments HCV RESULT COMPONENT HCV RNA not detected HCV RNA not detected (BEAKER) (test code = 2699) This test uses a Real-Time Polymerase Chain Reaction (RT-PCR) methodology and was performed using [employer] Ampliprep/KHOA TaqMan HCV test kit version 2.0 ([employer]).Reportable range for this assay is 15 - 100,000,000 IU per mL (1.18 - 8.00 Log IU/mL).CT, CHEST, WITHOUT [id number] 15:56:00 REFERRING MD: ANIL SALVADOR Mets work up [facility]Name: [facility]ALEN CARDONA : 1955 Sex: [...] MDReport Verified Date/Time: 01/22/2021 15:56:37 Reading Location: [facility] Diagnostic Imaging Reading Room - [place] [address] ALPHA FETOPROTEIN (AFP), TUMOR [id number] 11:33:00 Test Item Value Reference Range Interpretation Comments ALPHA-FETOPROTEIN (BEAKER) (test 2.1 ng/mL <10.0 code = 1094) Police Records Clerk ID - ELOY MBASIC METABOLIC [id number] 11:23:00 Test Item Value Reference Range Interpretation [...] S NOT APPLICABLE FOR DIALYSIS PATIEN TS. Police Records Clerk ID - ELOY EPATIC FUNCTION [id number] 11:23:00 Test Item Value Reference Range Interpretation [...] (test code = 23 U/L 6-55 347) Police Records Clerk ID - ELOY MCBC W/PLT COUNT & AUTO [id number] 10:58:00 Test Item Value Reference Range Interpretation [...] PERCENT (BEAKER) (test code = 2801) PROTHROMBIN TIME/[id number] 10:46:00 Test Item Value Reference Range Interpretation [...] with mechanical heart valves.ANG, EMBOLIZATION, EXTENSIVE - [id number] 08:41:00REFERRING MD: ANIL SALVADOR For TACEReason for Exam:->HCC, CIRRHOSIS [facility] CENTERName: KALEN CARDONA : 1955 [...] blood loss: < 5 cc. Specimen: None. winch truck operator: Xiang Colindres MD.. Hearing Instrument Specialist: None. Fluoroscopy Time: 14.2min.Reference Air Kerma (Ka, r): 1613 mGy. The skin was anesthetized with lidocaine. The right common femoral artery was accessed using a 21-gauge needle and a 0.018 inch microwire. A 4 Emirati catheterwas placed over the wire and a 0.035 inch wire was placed through the catheter into the abdominal aorta. A 5 Emirati sheath was placed over the wire. A 5 Emirati SOS-II catheter was used to select the celiac artery for digital subtraction angiogram which demonstrated patent portal flow. A microcatheter was subsequently used to subselect the right hepatic artery and more distal segment eight arteries for diagnostic angiograms. After supply to the segment eight tumor was verified chemoembolization was performed [...] eight and segment seven.3. Selective catheterization and digitalsubtraction angiogram of the segment eight artery demonstrates [...] with cone beam CT.3. Successful hemostasis using cl osure device. Signed: Xiang Colindres MDReport Verified Date/Time: 11/27/2020 08:41:43 C METABOLIC [id number] 08:59:00 Test Item Value Reference Range Interpretation [...] S NOT APPLICABLE FOR DIALYSIS PATIEN TS. Police Records Clerk ID - KRISHNA ZAVALETApecimen slightly ictericHEPATIC FUNCTION [id number] 08:59:00 Test Item Value Reference Range Interpretation [...] (test code = 24 U/L 6-55 347) Police Records Clerk ID - KRISHNA Multanin slightly ictericPROTHROMBIN TIME/[id number] 08:49:00 Test Item Value Reference Range Interpretation Comments PROTIME (BEAKER) 16.7 seconds 11.9-14.2 H (test code = 759) INR (BEAKER) (test 1.37 See_Comment [Automat ed message] code = 370) The system [employer] generated this result transmitted ref erence range: <=5.90. The reference range was not used to int erpret this result as normal/abnormal . RECOMMENDED COUMADIN/WARFARIN INR THERAPY RANGESSTANDARD DOSE: 2.0 - 3.0 Includes: PROPHYLAXIS for venous thrombosis, systemic embolization; TREATMENT for venous thrombosis and/or pulmonary embolus.HIGH RISK: Target INR is 2.5-3.5 for patients with mechanical heart valves.CBC W/PLT COUNT & AUTO [id number] 08:49:00 Test Item Value Reference Range Interpretation [...] 0-1 PERCENT (BEAKER) (test code = 2801) [id number] 08:49:00 Test Item Value Reference Range Interpretation Comments PARTIAL THROMBOPLASTIN TIME 34.6 seconds 22.5-36.0 (BEAKER) (test code = 760) HEPATITIS C PCR, [id number] 19:54:00 Test Item Value Reference Range Interpretation Comments HCV RESULT COMPONENT HCV RNA not detected HCV RNA not detected (BEAKER) (test code = 2699) This test uses a Real-Time Polymerase Chain Reaction (RT-PCR) methodology and was performed using [employer] Ampliprep/KHOA TaqMan HCV test kit version 2.0 ([employer]).Reportable range for this assay is 15 - 100,000,000 IU per mL (1.18 - 8.00 Log IU/mL).BASIC METABOLIC [id number] 12:10:00 Test Item Value Reference Range Interpretation [...] S NOT APPLICABLE FOR DIALYSIS PATIEN TS. Police Records Clerk ID - FSEHEPATIC FUNCTION [id number] 12:10:00 Test Item Value Reference Range Interpretation [...] (test code = 26 U/L 6-55 347) Police Records Clerk ID - FSECBC W/PLT COUNT & AUTO [id number] 12:01:00 Test Item Value Reference Range Interpretation [...] PERCENT (BEAKER) (test code = 2801) PROTHROMBIN TIME/[id number] 11:53:00 Test Item Value Reference Range Interpretation Comments PROTIME (BEAKER) 16.3 seconds 11.9-14.2 H (test code = 759) INR (BEAKER) (test 1.35 See_Comment [Automat ed message] code = 370) The system [employer] generated this result transmitted ref erence range: <=5.90. The reference range was not used to int erpret this result as normal/abnormal . RECOMMENDED COUMADIN/WARFARIN INR THERAPY RANGESSTANDARD DOSE: 2.0 - 3.0 Includes: PROPHYLAXIS for venous thrombosis, systemic embolization; TREATMENT for venous thrombosis and/or pulmonary embolus.HIGH RISK: Target INR is 2.5-3.5 for patients with mechanical heart valves.BONE AND/OR JOINT IMAGING, WHOLE BODY 2020-10-08 17:40:00REFJENISE GOMEZ: ANIL SALVADOR [facility] : 1955 Sex: MFINAL REPORT PROCEDURE: BONE SCAN, WHOLE BODY CPT CODE: 27499 INDICATION: Hepatocellular carcinoma PROTOCOL: 21.0 mCi of Tc-99m MDP was [...] MDReport Verified Date/Time: 10/08/2020 17:40:47 Reading Location: [address] [place] [address], CHEST, WITHOUT [id number] 12:54:00REFERRING MD: ANIL SALVADOR [facility]ARD[facility] : 1955 Sex: [...] subsegmental atelectasis.3. Hiatal hernia4. Cirrhosis.Signed: Brenda De Dioslawrence+[facility] Verified Date/Time: 10/08/2020 12:54:21 Reading Location: [address] Body Reading Room ALPHA FETOPROTEIN (AFP), TUMOR [id number] 12:52:00 Test Item Value Reference Range Interpretation Comments ALPHA-FETOPROTEIN (BEAKER) (test 2.5 ng/mL <10.0 code = 1094) Police Records Clerk ID - DEBORAH [facility] METABOLIC [id number] 11:26:00 Test Item Value Reference Range Interpretation [...] S NOT APPLICABLE FOR DIALYSIS PATIEN TS. Police Records Clerk ID - KRISHNA LHEPATIC FUNCTION [id number] 11:26:00 Test Item Value Reference Range Interpretation [...] (test code = 29 U/L 6-55 347) Police Records Clerk ID Andrea KELLER LCBC W/PLT COUNT & AUTO [id number] 11:14:00 Test Item Value Reference Range Interpretation [...] PERCENT (BEAKER) (test code = 2801) PROTHROMBIN TIME/[id number] 11:12:00 Test Item Value Reference Range Interpretation Comments PROTIME (BEAKER) 16.7 seconds 11.9-14.2 H (test code = 759) INR (BEAKER) (test 1.39 See_Comment [Automat ed message] code = 370) The system [employer] generated this result transmitted ref erence range: [...] for patients wiht mechanical heart valves.MR, ABDOMEN, [id number] 16:24:00 REFERRING MD: ANIL SALVADOR Include Abdominal VesselsUnlisted Reason for Exam - Click Yes and EnterReason Below->YesUnlisted Reason for Exam->awaiting organ transplant, cirrhosis, screening forcancer [facility] CENTERName: KALEN CARDONA : 1955 [...] Tawanda Alvarez MDReport Verified Date/Time: 09/02/2020 16:24:23 ALPHA FETOPROTEIN (AFP), TUMOR [id number] 16:57:00 Test Item Value Reference Range Interpretation Comments ALPHA-FETOPROTEIN (BEAKER) (test code < ng/mL <10.0 = 1094) Police Records Clerk ID - BSBASIC METABOLIC [id number] 14:50:00 Test Item Value Reference Range Interpretation [...] S NOT APPLICABLE FOR DIALYSIS PATIEN TS. Police Records Clerk ID - EDASISpecimen slightly ictericHEPATIC FUNCTION [id number] 14:50:00 Test Item Value Reference Range Interpretation [...] (test code = 26 U/L 6-55 347) Police Records Clerk ID - EDASISpecimen slightly ictericCBC W/PLT COUNT & AUTO [id number] 14:45:00 Test Item Value Reference Range Interpretation [...] PERCENT (BEAKER) (test code = 2801) PROTHROMBIN [id number] 14:40:00 Test Item Value Reference Range Interpretation Comments PROTIME (BEAKER) 17.6 seconds 11.9-14.2 H (test code = 759) INR (BEAKER) (test 1.49 See_Comment [Automat ed message] code = 370) The system [employer] generated this result transmitted ref erence range: [...] for patients wiht mechanical heart valves.Chest 1 [id number] 14:03:55 Small right pleural effusion with right [...] edema.Normal aortic contours. No acute osseous abnormality. [facility], Radiant Results Inft User - 08/19/2020 9:04 [...] effusion with right basilar pneumonia and/oratelectasis.RL: 7000 [facility] CenterTrformerly [facility] hospitaln [id number] 13:32:55 Test Item Value Reference Range Interpretation Comments TROPONIN I (test <0.012 See_Comment [Automated code = 5585375148) message] The system which generated this result [...] ? Lab Interpretation Normal (test code = 73913-5) [facility] Center[facility]MINAL [id number] 13:29:55 Test Item Value Reference Range Interpretation Comments NT-proBNP (test code 119 pg/mL See_Comment [Autom ated = 9582238422) message] The system which generated this result transmitted reference range : <=125. The reference range was not used to interpret this result as normal/abnormal . MADALYN (test code = MADALYN) Biotin has been reported to cause a negative bias, interpret results relative to patient's use of biotin. Lab Interpretation Normal (test code = 67848-4) [facility] CenterCOVID-19 (ID NOW RAPID TESTING)2020-08-19 13:23:14 Test Item Value Reference Range Interpretation Comments SARS-CoV-2 Rapid ID NOW Not Detected Not Detected (test code = 36038-5) MADALYN (test code = MADALYN) ID NOW COVID-19 Assay is an isothermal nucleic acid amplification test intended for the qualitative detection of nucleic acid from SARS-CoV-2 viral RNA in nasopharyngeal (SPECIAL POLICE) specimens. It is used under Emergency Use [...] indicated. Lab Interpretation Normal (test code = 95718-5) [facility] Metabolic Panel (NA, K, CL, CO2, GLUCOSE, BUN, CREATININE, CA)2020-08-19 13:21:13 Test Item Value Reference Range Interpretation Comments NA (test code = 135 mmol/L 135-145 8338342864) K (test code = 4.1 mmol/L 3.5-5.0 3386837153) CL (test code = 106 mmol/L 98-108 3047590075) CO2 TOTAL (test code = 24 mmol/L 23-31 2581333263) AGAP (test code = 2-16 1236322762) BUN (test code = 7 mg/dL 7-23 6808157367) GLUCOSE (test code = 216 mg/dL 70-110 H 3332144393) CREATININE (test code = 0.59 mg/dL 0.60-1.25 L 2843362914) CALCIUM (test code = 8.2 mg/dL 8.6-10.6 L 7995196650) eGFR Calculation mL/min/1.73m2 (Non-) (test code = 4794546592) eGFR Calculation mL/min/1.73m2 () (test code = 2346552700) MADALYN (test code = MADALYN) Association of [...] tests). Lab Interpretation Abnormal (test code = 72411-1) [facility] CenterHep[facility] Function Panel (ALB, T.PRO, BILI T, BU/BC, ALT, AST, ALK PHOS)2020-08-19 13:21:12 Test Item Value Reference Range Interpretation Comments TOTAL BILI (test code = 1551887719) 1.9 mg/dL 0.1-1.1 H BILI UNCON (test code = 8205576498) 1.7 mg/dL 0.1-1.1 H BILI CONJ (test code = 9180359952) 0.0 mg/dL 0.0-0.3 T PROTEIN (test code = 0229256365) 6.3 g/dL 6.3-8.2 ALBUMIN (test code = 6918944653) 3.0 g/dL 3.5-5.0 L ALK PHOS (test code = 2484021296) 162 U/L 34-122 H ALTv (test code = 1742-6) 25 U/L 5-50 AST(SGOT) (test code = 3549113753) 41 U/L 13-40 H Lab Interpretation (test code = Abnormal 24290-7) [facility] CenterLipase [id number] 13:21:12 Test Item Value Reference Range Interpretation Comments LIPASE (test code = 3999887498) 145 U/L 0-220 Lab Interpretation (test code = Normal 42500-3) [facility] CenterCBC with Yjglakvqfwvz3036-60-75 13:17:56 Test Item Value Reference Range Interpretation [...] RDW-SD (test code = 48.3 fL 38.5-51.6 19209-8) RDW-CV (test code = 21.4 % 12.1-15.4 H 788-0) PLT (test code = See_Comment L [Automated 777-3) message] The sy stem which generated this result transmitted reference range : 150 - 328 10*3/ ?L. The reference r mela was not used to interpret this result as normal/abnormal . MPV (test code = Not Measure d 31684-7) IPF % (test code = 2.3 % 1.2-10.7 Platelet count 8386709805) measured by fluorescence method. NRBC/100 WBC (test See_Comment [Automat ed code = 0790872209) message] The system which generated this result transmitted reference range : 0.0 - 10.0 /100 WBCs. The refer ence range was not u sed to interpret th is result as normal/abnormal . NRBC x10^3 (test code <0.01 See_Comment [Auto mated = 9068593795) message] The s ystem which generated this result transmitted reference range : 10*3/?L. The reference range was not used to interpret this result as normal/abnormal . GRAN MAT (NEUT) % 56.4 % (test code = 770-8) IMM GRAN % (test code 0.20 % = 9556754399) LYMPH % (test code = 27.6 % 736-9) MONO % (test code = 10.7 % 5905-5) EOS % (test code = 3.7 % 713-8) BASO % (test code = 1.4 % 706-2) GRAN MAT x10^3(ANC) 2.47 10*3/uL 1.99-6.95 (test code = 2438301423) IMM GRAN x10^3 (test <0.03 0.00-0.06 code = 5486774503) LYMPH x10^3 (test code 1.21 10*3/uL 1.09-3.23 = 731-0) MONO x10^3 (test code 0.47 10*3/uL 0.36-1.02 = 742-7) EOS x10^3 (test code = 0.16 10*3/uL 0.06-0.53 711-2) BASO x10^3 (test code 0.06 10*3/uL 0.01-0.09 = 704-7) Lab Interpretation Abnormal (test code = 56028-7) [facility] CenterPROTHROMBIN TIME / [id number] 01:49:00 Test Item Value Reference Range Interpretation Comments PROTIME PATIENT (test See_Comment H [Auto mated message] code = 5964-2) The system [employer] generated this result transmitted ref erence range: 12.0 - 1 4.7 Seconds. The reference range was not used to int erpret this result as normal/abnormal . INR (test code = 6301-6) Nor mal INR <1.1; Warfarin Therap eutic range 2.0 to 3. 0 or 2.5 to 3.5, dep ending upon the indica tions. Lab Interpretation (test Abnormal code = 71630-7) [facility] CenterMAGNESIUM2021-01-29 01:27:00 Test Item Value Reference Range Interpretation Comments MAGNESIUM (test code = 5308946688) 1.6 mg/dL 1.7-2.4 L Lab Interpretation (test code = Abnormal 03845-4) [facility] CenterAMMONIA, [id number] 01:26:00 Test Item Value Reference Range Interpretation Comments AMMONIA (test code = 3151352045) 37 umol/L 9-33 H Lab Interpretation (test code = Abnormal 77869-7) [facility] CenterUrinalysis2021-01-29 00:30:00 Test Item Value Reference Range Interpretation Comments APPEARANCE (test code = Clear Clear 2900066899) COLOR (test code = Addison Yellow A 7589243133) PH (test code = 4.8-8.0 9148945570) SP GRAVITY (test code = 1.003-1.030 4499342614) GLU U QUAL (test code = Normal Normal 5252146143) BLOOD (test code = Negative Negative INTERFERE NCE FROM 2791292254) ASCORBIC ACID M AY CAUSE FALSE NEG ATIVE RESULT KETONES (test code = Negative Negative 0628463992) PROTEIN (test code = Negative Negative 2887-8) UROBILIN (test code = 4.0 mg/dL Normal A 6294889910) BILIRUBIN (test code = Negative Negative 9703222766) NITRITE (test code = Negative Negative 5441069068) LEUK KIKI (test code = Negative Negative 6446397442) RBC/HPF (test code = See_Comment [Autom ated message] 4344717541) The system [employer] generated this result transmitted ref erence range: 0 - 3 HP F. The reference range was not used to int erpret this result as normal/abnormal . WBC/HPF (test code = See_Comment [Autom ated message] 0943630739) The system [employer] generated this result transmitted ref erence range: 0 - 5 HP F. The reference range was not used to int erpret this result as normal/abnormal . BACTERIA (test code = Negative Negative 3668059325) MUCOUS (test code = Slight Negative LPF A 5772931394) SQ EPITH (test code = HPF 2937122385) CA OXALATE (test code = See_Comment [Au tomated message] 5680719172) The system [employer] generated this result transmitted ref erence range: <=1 HPF. The reference range was not used to int erpret this result as normal/abnormal . TRANS EPI (test code = <1 See_Comment [Aut omated message] 2620399173) The system [employer] generated this result transmitted ref erence range: <=1 HPF. The reference range was not used to int erpret this result as normal/abnormal . Lab Interpretation Abnormal (test code = 56821-5) [facility] 1 [id number] 00:22:38Elevation of the right hemidiaphragm of moderate [...] CSTCHEST SINGLE VIEWHISTORY: SOB ORDERING PHYSICIAN: CAROLINA BENSONECHNIQUE:Frontal view of chestCOMPARISON: None available.FINDINGS:The cardiac silhouette is mildly enlargedThere is elevation of the right hemidiaphragm. There are moderate patchyopacities in the right lung base. No large pleural effusion. Nopneumothorax.No acute osseous abnormality. IMPRESSIONElevation of theright hemidiaphragm of moderate patchy opacities in theright lung base which may be due to atelectasis or pneumonia.RL: 4131 [facility] [id number] 00:18:00 Test Item Value Reference Range Interpretation Comments TROPONIN I (test <0.012 See_Comment [Automated code = 5172573659) message] The system which generated this result [...] ? Lab Interpretation Normal (test code = 79762-2) [facility] CenterN-TERMINAL [id number] 00:15:00 Test Item Value Reference Range Interpretation Comments NT-proBNP (test code 175 pg/mL See_Comment H [Autom ated = 0250823151) message] The system which generated this result transmitted reference range : <=125. The reference range was not used to interpret this result as normal/abnormal . MADALYN (test code = MADALYN) Biotin has been reported to cause a negative bias, interpret results relative to patient's use of biotin. Lab Interpretation Abnormal (test code = 48443-1) [facility] CenterCOVID-19 (ID NOW RAPID TESTING)2020-06-26 00:08:00 Test Item Value Reference Range Interpretation Comments SARS-CoV-2 Rapid ID NOW Not Detected Not Detected (test code = 48641-4) MADALYN (test code = MADALYN) ID NOW COVID-19 Assay is an isothermal nucleic acid amplification test intended for the qualitative detection of nucleic acid from SARS-CoV-2 viral RNA in nasopharyngeal (SPECIAL POLICE) specimens. It is used under Emergency Use [...] indicated. Lab Interpretation Normal (test code = 15138-4) [facility] Metabolic Panel (NA, K, CL, CO2, GLUCOSE, BUN, CREATININE, CA)2020-06-26 00:06:00 Test Item Value Reference Range Interpretation Comments NA (test code = 137 mmol/L 135-145 6817146954) K (test code = 3.4 mmol/L 3.5-5 L 0295187979) CL (test code = 104 mmol/L 98-108 1880135396) CO2 TOTAL (test code = 26 mmol/L 23-31 2127969236) AGAP (test code = 2-16 3915244063) BUN (test code = 6 mg/dL 7-23 L 0994319430) GLUCOSE (test code = 118 mg/dL 70-110 H 9720509705) CREATININE (test code = 0.60 mg/dL 0.6-1.25 7906302927) CALCIUM (test code = 7.9 mg/dL 8.6-10.6 L 8164123468) eGFR Calculation mL/min/1.73m2 (Non-) (test code = 5004148229) eGFR Calculation mL/min/1.73m2 () (test code = 6602870867) MADALYN (test code = MADALYN) Association of [...] tests). Lab Interpretation Abnormal (test code = 64888-4) [facility] CenterHepatic Function Panel (ALB, T.PRO, BILI T, BU/BC, ALT, AST, ALK PHOS)2020-06-26 00:06:00 Test Item Value Reference Range Interpretation Comments TOTAL BILI (test code = 7864653984) 2.2 mg/dL 0.1-1.1 H BILI UNCON (test code = 2720163371) 1.8 mg/dL 0.1-1.1 H BILI CONJ (test code = 7869936425) 0.0 mg/dL 0-0.3 T PROTEIN (test code = 8710277424) 6.8 g/dL 6.3-8.2 ALBUMIN (test code = 5573836006) 3.1 g/dL 3.5-5 L ALK PHOS (test code = 8733379314) 162 U/L 34-122 H ALTv (test code = 1742-6) 22 U/L 5-50 AST(SGOT) (test code = 3746428445) 42 U/L 13-40 H Lab Interpretation (test code = Abnormal 61004-4) [facility] CenterLipase [id number] 00:06:00 Test Item Value Reference Range Interpretation Comments LIPASE (test code = 0671639158) 156 U/L 0-220 Lab Interpretation (test code = Normal 65729-7) [facility] CenterCBC with [id number] 00:00:00 Test Item Value Reference Range Interpretation [...] RDW-SD (test code = 49.4 fL 38.5-51.6 81004-4) RDW-CV (test code = 21.6 % 12.1-15.4 H 788-0) PLT (test code = See_Comment L [Automated 777-3) message] The sy stem which generated this result transmitted reference range : 150 - 328 10*3/ ?L. The reference r mela was not used to interpret this result as normal/abnormal . MPV (test code = Not Measure d 14839-3) IPF % (test code = 1.9 % 1.2-10.7 Platelet count 5845656154) measured by fluorescence method. NRBC/100 WBC (test See_Comment [Automat ed code = 4047868250) message] The system which generated this result transmitted reference range : 0.0 - 10.0 /100 WBCs. The refer ence range was not u sed to interpret th is result as normal/abnormal . NRBC x10^3 (test code <0.01 See_Comment [Auto mated = 6681294744) message] The s ystem which generated this result transmitted reference range : 10*3/?L. The reference range was not used to interpret this result as normal/abnormal . GRAN MAT (NEUT) % 44.8 % (test code = 770-8) IMM GRAN % (test code 0.20 % = 4932234312) LYMPH % (test code = 37.2 % 736-9) MONO % (test code = 13.6 % 5905-5) EOS % (test code = 2.7 % 713-8) BASO % (test code = 1.5 % 706-2) GRAN MAT x10^3(ANC) 2.47 10*3/uL 1.99-6.95 (test code = 6127793042) IMM GRAN x10^3 (test <0.03 0-0.06 code = 6142615589) LYMPH x10^3 (test code 2.05 10*3/uL 1.09-3.23 = 731-0) MONO x10^3 (test code 0.75 10*3/uL 0.36-1.02 = 742-7) EOS x10^3 (test code = 0.15 10*3/uL 0.06-0.53 711-2) BASO x10^3 (test code 0.08 10*3/uL 0.01-0.09 = 704-7) Lab Interpretation Abnormal (test code = 01079-3) [facility] CenterMISCELLANEOUS LAB [id number] 12:02:00 Test Item Value Reference Range Interpretation Comments SCAN RESULT (test code = 9403292) SARS-COV2/RT-PCR ([facility])2020-03-13 20:20:00 Test Item Value Reference Range Interpretation Comments SARS-COV2/RT-PCR (test Negative Not Detected, Negative, code = 0747180) See external report for linked test SARS-COV-2 PERFORMING LAB [facility] (test code = 0864758) Negative result for this test determines that [...] of the Act.Fact Sheet for Healthcare Prov iders:https://www.[employer]/sites/default/files/product/documents/Fact_Sheet_HC _Hzucqptld_Ysdg_MQBZ-ZmX-3.pdfFact Sheet for Healthcare Patients:https://www.[employer]/sites/default/files/product/docume nts/Jikg_Ilsbs_Otluigzv_Mqrs_QNFV-CxF-5.pdfPerforming Laboratory:[facility], [place] [address]CM, ABDOMEN, WITH 2020-03-13 14:43:00REFERRING : ANIL SALVADOR Include Abdominal VesselsUnlisted Reason for Exam - Click Yes and EnterReason Below- >YesUnlisted Reason for Exam->listed for liver transplant, screening for malignancyH[facility]Name: [facility] : 1955 Sex: [...] in the liver. Spleen is enlarged measuring krovyypugezju38.8 x 4.9 x 11.4 cm. The splenic, [...] (test code < ng/mL <10.0 = 1094) Police Records Clerk ID - AAHAMIDCOMPREHENSIVE METABOLIC [id number] 12:54:00 Test Item Value Reference Range Interpretation [...] S NOT APPLICABLE FOR DIALYSIS PATIEN TS. Police Records Clerk ID - AAHAMIDRAD, BONE DENSITY [id number] 12:46:00REFERRING MD: ANIL SALVADOR Reason for Exam:->on liver transplant waiting list [facility] CENTERName: KALEN CARDONA : 1955 Sex: MFINAL REPORT Bone density study, 03/13/2020 Clinical History: Screening Bone mineral density measurementLumbar spine1.110 gm/ge9Bvjezfe neck0.918 gm/cm2 Standard deviation from young adult [...] MDReport Verified Date/Time: 03/13/2020 12:46:53 Reading Location: [address] Reading Room BILIRUBIN, [id number] 12:38:00 Test Item Value Reference Range Interpretation Comments BILIRUBIN DIRECT (BEAKER) (test 1.0 mg/dL 0.1-0.5 H code = 706) Police Records Clerk ID - AAHAMIDPROTHROMBIN TIME/[id number] 12:23:00 Test Item Value Reference Range Interpretation [...] mechanical heart valves.CBC W/PLT COUNT & AUTO [id number] 12:16:00 Test Item Value Reference Range Interpretation [...] PERCENT (BEAKER) (test code = 2801) BLOOD [id number] 20:00:00 Test Item Value Reference Range Interpretation Comments CULTURE (BEAKER) (test No growth in 5 days code = 1095) BLOOD [id number] 20:00:00 Test Item Value Reference Range Interpretation Comments CULTURE (BEAKER) (test No growth in 5 days code = 1095) POCT-GLUCOSE [id number] 07:47:00 Test Item Value Reference Range Interpretation Comments POC-GLUCOSE METER 121 mg/dL 70-110 H : TESTED A T [facility] 6720 (BEAKER) (test code = [facility], 153) [address]: Police Records Clerk/Techni zaire ID = [id number] for RADHA GARVEY HEPATIC FUNCTION [id number] 07:24:00 Test Item Value Reference Range Interpretation [...] (test code = 25 U/L 6-55 347) Police Records Clerk ID - ALEJANDRODAMIAN LSpecimekaz slightly ictericPOCT-GLUCOSE [id number] 22:18:00 Test Item Value Reference Range Interpretation Comments POC-GLUCOSE METER 143 mg/dL 70-110 H : TESTED A T [facility] 6720 (BEAKER) (test code = [facility], 153) 67071: Police Records Clerk/Techni zaire ID = [id number] for CA RBAJAL, ANU POCT-GLUCOSE [id number] 17:24:00 Test Item Value Reference Range Interpretation Comments POC-GLUCOSE METER 214 mg/dL 70-110 H : TESTED A T [facility] 6720 (BEAKER) (test code = [facility], 1538) 78101: Police Records Clerk/Techni zaire ID = [id number] for SA NTOS, WADE POCT-GLUCOSE [id number] 13:32:00 Test Item Value Reference Range Interpretation Comments POC-GLUCOSE METER 127 mg/dL 70-110 H : TESTED A T [facility] 6720 (BEAKER) (test code = [facility], 1538) 72152: Police Records Clerk/Techni zaire ID = [id number] for WADE MCMULLEN POCT-GLUCOSE [id number] 12:08:00 Test Item Value Reference Range Interpretation Comments POC-GLUCOSE METER 124 mg/dL 70-110 H : TESTED A T [facility] 6720 (BEAKER) (test code = [facility], 1538) 46308: Police Records Clerk/Techni zaire ID = [id number] for CHARI RAZO POCT-GLUCOSE [id number] 08:16:00 Test Item Value Reference Range Interpretation Comments POC-GLUCOSE METER 117 mg/dL 70-110 H : TESTED A T [facility] 6720 (BEAKER) (test code = [facility], 1538) 68361: Police Records Clerk/Techni zaire ID = [id number] for WADE MCMULLEN BASIC METABOLIC [id number] 06:13:00 Test Item Value Reference Range Interpretation [...] S NOT APPLICABLE FOR DIALYSIS PATIEN TS. Police Records Clerk ID - PIAYA LSpecimen slightly ictericHEPATIC FUNCTION [id number] 06:13:00 Test Item Value Reference Range Interpretation [...] (test code = 27 U/L 6-55 347) Police Records Clerk ID - PIAYA LSpecimen slightly ictericPROTHROMBIN TIME/[id number] 05:46:00 Test Item Value Reference Range Interpretation [...] mechanical heart valves.CBC W/PLT COUNT & AUTO [id number] 05:21:00 Test Item Value Reference Range Interpretation [...] PERCENT (BEAKER) (test code = 2801) POCT-GLUCOSE [id number] 22:38:00 Test Item Value Reference Range Interpretation Comments POC-GLUCOSE METER 181 mg/dL 70-110 H : TESTED A T [facility] 6720 (BEAKER) (test code = [facility]ICOLE TRUJILLO, 1538) 18207: Police Records Clerk/Techni zaire ID = [id number] for RON BLANCO (CELLAVISION MANUAL DIFF)2019-12-28 15:15:00 [...] CONCENTRATION Decreased (CELLAVISION)(BEAKER) (test code = 3438) Police Records Clerk ID - Nima Villafuerte comments: Slide comments:CBC W/PLT COUNT & AUTO [id number] 15:11:00 Test Item Value Reference Range Interpretation [...] PERCENT (BEAKER) (test code = 2801) POCT-GLUCOSE [id number] 10:15:00 Test Item Value Reference Range Interpretation Comments POC-GLUCOSE METER 178 mg/dL 70-110 H : TESTED A T [facility] 6720 (BEAKER) (test code = [facility], 1538) 23068: Police Records Clerk/Techni zaire ID = [id number] for DELPHINE JUAREZ POCT-GLUCOSE [id number] 09:08:00 Test Item Value Reference Range Interpretation Comments POC-GLUCOSE METER 167 mg/dL 70-110 H : TESTED A T [facility] 6720 (BEAKER) (test code = [facility], 1538) 28678: Police Records Clerk/Techni zaire ID = [id number] for SAMIRA COWAN BASIC METABOLIC [id number] 07:06:00 Test Item Value Reference Range Interpretation [...] S NOT APPLICABLE FOR DIALYSIS PATIEN TS. Police Records Clerk ID - PIDAMIAN LSpecimen slightly ictericHEPATIC FUNCTION [id number] 07:06:00 Test Item Value Reference Range Interpretation [...] (test code = 20 U/L 6-55 347) Police Records Clerk ID - KRISHNA ZAVALETAmargaritoimen slightly ictericPOCT-GLUCOSE [id number] 22:05:00 Test Item Value Reference Range Interpretation Comments POC-GLUCOSE METER 216 mg/dL 70-110 H : TESTED A T [facility] 6720 (BEAKER) (test code = [facility], 1538) 81086: Police Records Clerk/Techni zaire ID = [id number] for CH DAVE, TY POCT-GLUCOSE [id number] 17:07:00 Test Item Value Reference Range Interpretation Comments POC-GLUCOSE METER 244 mg/dL 70-110 H : TESTED A T [facility] 6720 (BEAKER) (test code = [facility], 1538) 27873: Police Records Clerk/Techni zaire ID = [id number] for IB RAHIM, SERKALEM CBC W/PLT COUNT & AUTO [id number] 12:15:00 Test Item Value Reference Range Interpretation [...] PERCENT (BEAKER) (test code = 2801) POCT-GLUCOSE [id number] 11:54:00 Test Item Value Reference Range Interpretation Comments POC-GLUCOSE METER 226 mg/dL 70-110 H : TESTED A T [facility] 6720 (BEAKER) (test code = [facility] [place], 1538) 039[address]: Police Records Clerk/Techni zaire ID = [id number] for CHUCHO SALDIVAR BASIC METABOLIC [id number] 08:18:00 Test Item Value Reference Range Interpretation [...] S NOT APPLICABLE FOR DIALYSIS PATIEN TS. Police Records Clerk ID - NTPPOCT-GLUCOSE [id number] 08:07:00 Test Item Value Reference Range Interpretation Comments POC-GLUCOSE METER 166 mg/dL 70-110 H : TESTED A T [facility] 6720 (BEAKER) (test code = [facility], 1538) 02824: Police Records Clerk/Techni zaire ID = [id number] for CHUCHO SALDIVAR HEPATIC FUNCTION [id number] 05:05:00 Test Item Value Reference Range Interpretation [...] (test code = 19 U/L 6-55 347) Police Records Clerk ID - LUIS ALBERTOpecgarrett yogi ictericPOCT-GLUCOSE [id number] 17:47:00 Test Item Value Reference Range Interpretation Comments POC-GLUCOSE METER 222 mg/dL 70-110 H : TESTED A T [facility] 6720 (BEAKER) (test code = [facility], 1538) 84693: Police Records Clerk/Techni zaire ID = [id number] for BRAXTON MORAN POCT-GLUCOSE [id number] 12:25:00 Test Item Value Reference Range Interpretation Comments POC-GLUCOSE METER 311 mg/dL 70-110 H : TESTED A T [facility] 6720 (BEAKER) (test code = [facility], 1538) 93959: Police Records Clerk/Techni zaire ID = [id number] for BRAXTON MORAN POCT-GLUCOSE [id number] 07:49:00 Test Item Value Reference Range Interpretation Comments POC-GLUCOSE METER 190 mg/dL 70-110 H : TESTED A T [facility] 6720 (BEAKER) (test code = [facility], 1538) 54056: Police Records Clerk/Techni zaire ID = [id number] for BRAXTON MORAN VITAMIN B12 AND [id number] 06:11:00 Test Item Value Reference Range Interpretation Comments VITAMIN B12 (BEAKER) (test code = 873 pg/mL 213-816 H 774) FOLATE (BEAKER) (test code = 362) 12.30 ng/mL >=7.00 Police Records Clerk ID - EDASIBASIC METABOLIC [id number] 05:21:00 Test Item Value Reference Range Interpretation [...] S NOT APPLICABLE FOR DIALYSIS PATIEN TS. Police Records Clerk ID - EDASIHEPATIC FUNCTION [id number] 05:21:00 Test Item Value Reference Range Interpretation [...] (test code = 19 U/L 6-55 347) Police Records Clerk ID - EDASICBC W/PLT COUNT & AUTO [id number] 05:12:00 Test Item Value Reference Range Interpretation [...] PERCENT (BEAKER) (test code = 2801) PROTHROMBIN TIME/[id number] 04:56:00 Test Item Value Reference Range Interpretation [...] 2.5-3.5 for patients wiht mechanical heart valves.POCT-GLUCOSE [id number] 22:11:00 Test Item Value Reference Range Interpretation Comments POC-GLUCOSE METER 195 mg/dL 70-110 H : TESTED A T [facility] 6720 (BEAKER) (test code = NICOLE ALAN ID, 1538) 26296: Police Records Clerk/Techni zaire ID = [id number] for SAMIRA COWAN HEMOGLOBIN AND [id number] 16:15:00 Test Item Value Reference Range Interpretation Comments HEMOGLOBIN (BEAKER) (test code = 8.6 GM/DL 13.7-17.5 L 410) HEMATOCRIT (BEAKER) (test code = 30.2 % 40.1-51.0 L 411) Police Records Clerk ID - [id number] 13:02:00 Test Item Value Reference Range Interpretation Comments FERRITIN (BEAKER) (test code = 73.10 ng/mL 5.00-275.00 361) Police Records Clerk ID - EDASIIRON, TIBC, % SAT. (WITHOUT FERRITIN)2019-12-25 12:42:00 Test Item Value Reference Range Interpretation Comments IRON (BEAKER) (test code = 547) 29.0 ug/dL 40.0-160.0 L TOTAL IRON BINDING CAPACITY 151 ug/dL 250-450 L (BEAKER) (test code = 769) IRON % SATURATION (2) (BEAKER) 19 % 20-55 L (test code = 2590) Police Records Clerk ID - EDASICOMPREHENSIVE METABOLIC [id number] 06:44:00 Test Item Value Reference Range Interpretation [...] S NOT APPLICABLE FOR DIALYSIS PATIEN TS. Police Records Clerk ID - EDASICBC W/PLT COUNT & AUTO [id number] 05:55:00 Test Item Value Reference Range Interpretation [...] PERCENT (BEAKER) (test code = 2801) POCT-GLUCOSE [id number] 23:39:00 Test Item Value Reference Range Interpretation Comments POC-GLUCOSE METER 307 mg/dL 70-110 H : TESTED A T [facility] 6720 (BEAKER) (test code = NICOLE Arita [facility], 1538) [address]: Police Records Clerk/Techni zaire ID = [id number] for Erendira Talbert (contrac t) RAD, CHEST, 1 VIEW, NON [id number] 18:52:00REFERRING : ANIL SALVADOR Reason for exam:->sobShould [...] MDReport Verified Date/Time: 12/24/2019 18:52:34 Reading Location: [facility] [id number] Consult Reading Room BASI METABOLIC PANEL 2019-06-04 [...] Specimen slightly ictericCBC W/PLT COUNT & AUTO [id number] 08:54:00 Test Item Value Reference Range Interpretation [...] (BEAKER) (test code = 2801) HEPATITIS C [id number] 12:25:00 Test Item Value Reference Range Interpretation Comments HEPATITIS C ANTIBODY (BEAKER) (test Reactive Nonreactive A code = 367) ALPHA FETOPROTEIN (AFP), TUMOR [id number] 15:45:00 Test Item Value Reference Range Interpretation Comments ALPHA-FETOPROTEIN (BEAKER) (test 2.7 ng/mL <10.0 code = 1094) BASIC METABOLIC [id number] 15:36:00 Test Item Value Reference Range Interpretation [...] DIALYSIS PATIEN TS. Specimen slightly ictericHEPATIC FUNCTION [id number] 15:35:00 Test Item Value Reference Range Interpretation [...] 21 U/L 6-55 347) Specimen slightly ictericPROTHROMBIN [id number] 15:00:00 Test Item Value Reference Range Interpretation [...] mechanical heart valves.CBC W/PLT COUNT & AUTO [id number] 14:53:00 Test Item Value Reference Range Interpretation [...] code = 2801) ALPHA FETOPROTEIN (AFP), TUMOR [id number] 14:10:00 Test Item Value Reference Range Interpretation Comments ALPHA-FETOPROTEIN (BEAKER) (test 2.7 ng/mL <10.0 code = 1094) BASIC METABOLIC [id number] 13:52:00 Test Item Value Reference Range Interpretation [...] DIALYSIS PATIEN TS. Specimen slightly ictericHEPATIC FUNCTION [id number] 13:52:00 Test Item Value Reference Range Interpretation [...] 24 U/L 6-55 347) Specimen slightly ictericPROTHROMBIN [id number] 13:49:00 Test Item Value Reference Range Interpretation [...] mechanical heart valves.CBC W/PLT COUNT & AUTO [id number] 13:35:00 Test Item Value Reference Range Interpretation [...] (test code = 2801) POCT HEMOGLOBIN A1C [id number] 21:30:00 Test Item Value Reference Range Interpretation Comments POCT HBA1C (test code = 4548-4) 7.4 % 4-6 A Lab Interpretation (test code = Abnormal 05189-6) [facility] [id number] 21:30:00 Test Item Value Reference Range Interpretation Comments POCT HBA1C (test code = 4548-4) 7.4 % 4-6 A Lab Interpretation (test code = Abnormal 93061-1) [id number] 14:59:00 Test Item Value Reference Range Interpretation Comments T4 TOTAL (BEAKER) (test code = 895) 5.7 ug/dL 4.9-11.7 [id number] 13:20:00 Test Item Value Reference Range Interpretation Comments T3 TOTAL (BEAKER) (test code = 656) 113 ng/dL 48-159 CYTOMEGALOVIRUS ANTIBODY, [id number] 11:11:00 Test Item Value Reference Range Interpretation Comments CYTOMEGALOVIRUS, IGG (BEAKER) Positive Negative, Equivocal A (test code = 3429) CMV IgG Result Interpretation: </= 0.8 Al Negative 0.9-1.0 Al Equivocal >/=1.1 Al PositiveCYTOMEGALOVIRUS ANTIBODY, [id number] 11:11:00 Test Item Value Reference Range Interpretation Comments CYTOMEGALOVIRUS IGM ANTIBODY Negative Negative, Equivocal (BEAKER) (test code = 3437) CMV IgM Result Interpretation: </= 0.8 Al Negative 0.9-1.0 Al Equivocal >/= 1.1 Al PositiveEBV ANTIBODY, [id number] 11:08:00 Test Item Value Reference Range Interpretation Comments EDENILSON TAVERAS VIRAL CAPSID Positive Negative, Equivocal A ANTIGEN IGG (BEAKER) (test code = 3415) Edenilson Taveras Viral Capsid Antigen IgG Result Interpretation: </= 0.8 Al Negative 0.9-1.0 Al Equivocal >/= 1.1 Al PositiveEBV ANTIBODY, [id number] 11:08:00 Test Item Value Reference Range Interpretation Comments EDENILSON TAVERAS VIRAL CAPSID Negative Negative, Equivocal ANTIGEN IGM (BEAKER) (test code = 3418) Edenilson Taveras Viral Capsid Antigen IgM Result Interpretation: </= 0.8 Al Negative 0.9-1.0 Al Equivocal >/= 1.1 Al PositiveVARICELLA ZOSTER ANTIBODY, [id number] 11:08:00 Test Item Value Reference Range Interpretation Comments VARICELLA ZOSTER IGG (AL) (BEAKER) > (test code = 3197) VARICELLA ZOSTER RESULT INTERPRETATIONS: <=0.8 Al Nonreactive: Presumed non- immune to VZV 0.9-1.0Al Equivocal >=1.1 Al Reactive: Presumed immune to VZV LSECZ-0-[id number] 13:11:00 Test Item Value Reference Range Interpretation Comments ALPHA-1 ANTITRYPSIN (BEAKER) 155.30 mg/dL 90.00-200.00 (test code = 502) HEMOGLOBIN [id number] 13:08:00 Test Item Value Reference Range Interpretation Comments HEMOGLOBIN A1C (BEAKER) (test code = 6.4 % 4.3-6.1 H 368) HEPATITIS A ANTIBODY, [id number] 12:51:00 Test Item Value Reference Range Interpretation Comments HEPATITIS A IGG ANTIBODY (BEAKER) Reactive Nonreactive A (test code = 2797) HEPATITIS C [id number] 12:51:00 Test Item Value Reference Range Interpretation Comments HEPATITIS C ANTIBODY (BEAKER) (test Reactive Nonreactive A code = 367) [id number] 12:48:00 Test Item Value Reference Range Interpretation Comments PROSTATE SPECIFIC ANTIGEN (BEAKER) 0.4 ng/mL 0.0-4.0 (test code = 844) HIV-1 ANTIGEN WITH HIV-1/2 [id number] 12:48:00 Test Item Value Reference Range Interpretation Comments HIV-1 ANTIGEN WITH HIV 1\\T\\2 Nonreactive Nonreactive ANTIBODY (2) (BEAKER) (test code = 2586) VITAMIN D, 25-[id number] 12:46:00 Test Item Value Reference Range Interpretation Comments VITAMIN D 25-OH (BEAKER) (test code 7.7 ng/mL 6.6-49.9 = 2764) Effective 03/08/2017: Reference Range ChangeNew: 6.6-49.9 ng/mL Previous: 13.0- 47.8 ng/mLRecommendedVitamin D Target Range: 30.0-40.0 ng/mLURINALYSIS W/ [id number] 11:55:00 Test Item Value Reference Range Interpretation [...] /LPF SOURCE(BEAKER) (test code = 2795) CRYPTOCOCCAL [id number] 11:10:00 Test Item Value Reference Range Interpretation Comments CRYPTOCOCCAL ANTIGEN, SERUM Negative Negative, Interference (BEAKER) (test code = 1828) [id number] 10:59:00 Test Item Value Reference Range Interpretation Comments THYROID STIMULATING HORMONE 2.10 uIU/mL 0.35-4.94 (BEAKER) (test code = 772) [id number] 10:59:00 Test Item Value Reference Range Interpretation Comments FERRITIN (BEAKER) (test code = 361) 69 ng/mL 5-275 [id number] 10:51:00 Test Item Value Reference Range Interpretation Comments RPR SCREEN (BEAKER) (test code = Nonreactive Nonreactive 420) [id number] 10:49:00 Test Item Value Reference Range Interpretation Comments TRANSFERRIN (BEAKER) (test code = 197 mg/dL 174-382 541) Specimen slightly [id number] 10:45:00 Test Item Value Reference Range Interpretation Comments MAGNESIUM (BEAKER) (test code = 1.5 mg/dL 1.6-2.6 L 627) [id number] 10:45:00 Test Item Value Reference Range Interpretation Comments PHOSPHORUS (BEAKER) (test code = 3.6 mg/dL 2.3-4.7 604) URIC [id number] 10:45:00 Test Item Value Reference Range Interpretation Comments URIC ACID (BEAKER) (test code = 4.8 mg/dL 2.6-7.2 773) Specimen slightly ictericCOMPREHENSIVE METABOLIC [id number] 10:45:00 Test Item Value Reference Range Interpretation [...] FOR DIALYSIS PATIEN TS. Specimen slightly ictericLIPID [id number] 10:45:00 Test Item Value Reference Range Interpretation [...] 160-189 Very High >=190 Specimen slightly ictericBILIRUBIN, [id number] 10:45:00 Test Item Value Reference Range Interpretation Comments BILIRUBIN DIRECT (BEAKER) (test 1.6 mg/dL 0.1-0.5 H code = 706) GAMMA GLUTAMYL TRANSFERASE (GGT)2018-12-20 10:45:00 Test Item Value Reference Range Interpretation Comments GAMMA GLUTAMYL TRANSFERASE (BEAKER) 33 U/L 9-64 (test code = 364) Specimen slightly [id number] 10:42:00 Test Item Value Reference Range Interpretation Comments PARTIAL THROMBOPLASTIN TIME 37.9 seconds 22.5-36.0 H (BEAKER) (test code = 760) PROTHROMBIN TIME/[id number] 10:36:00 Test Item Value Reference Range Interpretation [...] is 2.5-3.5 for patients wiht mechanical heart valves.[id number] 10:36:00 Test Item Value Reference Range Interpretation Comments ETHANOL (BEAKER) (test code = 400) < mg/dL <=10 [id number] 10:36:00 Test Item Value Reference Range Interpretation Comments FIBRINOGEN LEVEL (BEAKER) (test 207 mg/dl 225-434 L code = 658) BLOOD GAS, [id number] 10:35:00 Test Item Value Reference Range Interpretation [...] 21.0 % CBC W/PLT COUNT & AUTO [id number] 10:25:00 Test Item Value Reference Range Interpretation [...] PERCENT (BEAKER) (test code = 2801) CALCIUM, [id number] 10:20:00 Test Item Value Reference Range Interpretation Comments CALCIUM IONIZED (BEAKER) (test 1.05 mmol/L 1.12-1.27 L code = 698) PH, BLOOD (BEAKER) (test code = 7.41 1810) RAD, MANDIBLE, MIN 4 [id number] 16:56:00REFERRING : ANIL SALVADOR Reason for Exam:->pretransplant liver evaluationFINAL REPORT TECHNIQUE: Minimum four views of the mandible. INDICATION: pretransplant liver evaluation. COMPARISON: None. FINDINGS:No fracture or dislocation.No periapical lucencies.Caries of a maxillary molar, side indeterminate.Mild degenerative disc changes at C4-C5, C5-C6, andC6-C7. IMPRESSION: No periapical lucency. Caries of a maxillary molar, side indeterminate. Signed: Tawanda Alvarez MDReport Verified Date/Time: 12/19/2018 16:56:31 Reading Location: [address] Radiology Reading Room RAD, CHEST, 2 [id number] 15:51:00REFERRING : ANIL SALVADOR Reason for Exam:- [...] MDReport Verified Date/Time: 12/19/2018 15:51:17 Reading Location: [facility] Mammo Reading Room MR, ABDOMEN, [id number] 14:51:00REFJENISE MD: ANIL FRANCISCO REPORT TECHNIQUE: MRI of [...] MDReport Verified Date/Time: 12/19/2018 14:51:24 Reading Location: [address] Radiology Reading Room ETHANOL 2018-12-06 11:12:00 Test Item Value Reference Range Interpretation Comments ETHANOL (BEAKER) (test code = 400) < mg/dL <=10 BASIC METABOLIC [id number] 10:56:00 Test Item Value Reference Range Interpretation [...] DIALYSIS PATIEN TS. Specimen moderately ictericHEPATIC FUNCTION [id number] 10:56:00 Test Item Value Reference Range Interpretation [...] 27 U/L 6-55 347) Specimen moderately ictericPROTHROMBIN TIME/[id number] 10:40:00 Test Item Value Reference Range Interpretation [...] mechanical heart valves.CBC W/PLT COUNT & AUTO [id number] 10:38:00 Test Item Value Reference Range Interpretation [...] PERCENT (BEAKER) (test code = 2801) BLOOD [id number] 08:00:00 Test Item Value Reference Range Interpretation Comments CULTURE (BEAKER) (test No growth in 5 days code = 1095) BLOOD [id number] 08:00:00 Test Item Value Reference Range Interpretation Comments CULTURE (BEAKER) (test No growth in 5 days code = 1095) BODY FLUID CULTURE + GRAM [id number] 12:20:00 Test Item Value Reference Range Interpretation Comments CULTURE (BEAKER) (test code No growth = 1095) GRAM STAIN RESULT (BEAKER) 1+ WBCs (test code = 1123) GRAM STAIN RESULT (BEAKER) No organisms seen (test code = 20178) HEPATITIS C PCR, [id number] 08:32:00 Test Item Value Reference Range Interpretation Comments HCV RESULT COMPONENT HCV RNA not detected HCV RNA not detected (BEAKER) (test code = 2699) This test uses a Real-Time Polymerase Chain Reaction (RT-PCR) methodology and was performed using [employer] Ampliprep/KHOA TaqMan HCV test kit version 2.0 ([employer]).Reportable range for this assay is 15 - 100,000,000 IU per mL (1.18 - 8.00 Log IU/mL).POCT-GLUCOSE [id number] 08:09:00 Test Item Value Reference Range Interpretation Comments POC-GLUCOSE METER 117 mg/dL 70-110 H TESTED AT [facility] 6720 (BEAKER) (test code = [place] 1538) [address] CALCIUM, [id number] 05:54:00 Test Item Value Reference Range Interpretation Comments CALCIUM IONIZED (BEAKER) (test 1.01 mmol/L 1.12-1.27 L code = 698) PH, BLOOD (BEAKER) (test code = 7.45 1810) COMPREHENSIVE METABOLIC [id number] 05:07:00 Test Item Value Reference Range Interpretation [...] APPLICABLE FOR DIALYSIS PATIEN TS. Specimen slightly [id number] 05:06:00 Test Item Value Reference Range Interpretation Comments PHOSPHORUS (BEAKER) (test code = 3.3 mg/dL 2.3-4.7 604) [id number] 05:06:00 Test Item Value Reference Range Interpretation Comments MAGNESIUM (BEAKER) (test code = 1.5 mg/dL 1.6-2.6 L 627) CBC W/PLT COUNT & AUTO [id number] 04:43:00 Test Item Value Reference Range Interpretation [...] PERCENT (AKER) (test code = 2801) POCT-GLUCOSE [id number] 21:35:00 Test Item Value Reference Range Interpretation Comments POC-GLUCOSE METER 154 mg/dL 70-110 H TESTED AT [place] [address] ([facility]) (test code = [facility] Juan J [facility] 1538) [address] POCT-GLUCOSE [id number] 17:21:00 Test Item Value Reference Range Interpretation Comments POC-GLUCOSE METER 138 mg/dL 70-110 H TESTED AT [place] [address] ([facility]) (test code = [facility] 1538) [address] POCT-GLUCOSE [id number] 13:27:00 Test Item Value Reference Range Interpretation Comments POC-GLUCOSE METER 166 mg/dL 70-110 H TESTED AT [place] [address] ([facility]) (test code = [facility] 1538) [address] CBC W/PLT COUNT & AUTO [id number] 12:00:00 Test Item Value Reference Range Interpretation Comments WHITE BLOOD CELL COUNT (BEAKER) 6.0 K/ L 3.5-10.5 (test code = 775) RED BLOOD CELL COUNT (BEAKER) 2.79 M/ L 4.63-6.08 L (test code = 761) HEMOGLOBIN (BEAKER) (test code = 9.4 GM/DL 13.7-17.5 L 410) HEMATOCRIT (BEAKER) (test code = 28.2 % 40.1-51.0 L 411) MEAN CORPUSCULAR VOLUME (AKER) 101.1 fL 79.0-92.2 H (test code = [...] 3438) Received comment: User comments: Slide comments:POCT-GLUCOSE [id number] 11:52:00 Test Item Value Reference Range Interpretation Comments POC-GLUCOSE METER 180 mg/dL 70-110 H TESTED AT [facility] 6720 (BEAKER) (test code = NICOLE [place]rit[place] 1538) [address] POCT-GLUCOSE [id number] 08:09:00 Test Item Value Reference Range Interpretation Comments POC-GLUCOSE METER 115 mg/dL 70-110 H TESTED AT [facility] 6720 (BEAKER) (test code = NICOLE [place]rit[place] 1538) [address] COMPREHENSIVE METABOLIC [id number] 05:59:00 Test Item Value Reference Range Interpretation [...] APPLICABLE FOR DIALYSIS PATIEN TS. Specimen slightly [id number] 05:57:00 Test Item Value Reference Range Interpretation Comments MAGNESIUM (BEAKER) (test code = 1.6 mg/dL 1.6-2.6 627) POCT-GLUCOSE [id number] 22:30:00 Test Item Value Reference Range Interpretation Comments POC-GLUCOSE METER 186 mg/dL 70-110 H TESTED AT [facility] 67 ([facility]) (test code = NICOLE Arita [facility] 1538) [address] POCT-GLUCOSE [id number] 18:33:00 Test Item Value Reference Range Interpretation Comments POC-GLUCOSE METER 117 mg/dL 70-110 H TESTED AT [place] [address] ([facility]) (test code = [facility] Juan J [facility] 1538) [address] U/S, [id number] 17:34:00REFERRING MD: ANIL SALVADOR Please give 25g [...] 2% lidocaine anesthesia was administered. A 5 Emir[place] catheter was advanced into the peritoneal cavityand 1300 cc of addison fluid was removed. The catheter was removed without immediate complication. Samples left with interstitial sent to the lab for analysis. IMPRESSION:Uncomplicated ultrasound-guided paracentesis with 1300 cc fluid removed. Signed: Mauricio Cullen MDReport Verified Date/Time: 10/29/2018 17:34:00 Reading Location: [facility] [id number] Ultrasound Reading Room VANCOMYCIN LEVEL, [id number] 17:22:00 Test Item Value Reference Range Interpretation Comments VANCOMYCIN TROUGH (BEAKER) (test 7.3 ug/mL 10.0-20.0 L code = 522) CBC W/PLT COUNT & AUTO [id number] 15:00:00 Test Item Value Reference Range Interpretation [...] = 2801) BODY FLUID CELL COUNT WITH [id number] 13:45:00 Test Item Value Reference Range Interpretation [...] Tube (test code = 2873) RESPIRATORY PANEL [id number] 12:27:00 Test Item Value Reference Range Interpretation [...] decisions. This sample was tested at the [facility] Molecular Diagnostics Laboratory using the [facility] Respiratory Panel. It is FDA cleared and has been verified and approved by the [facility] Molecular Diagnostics Laboratory for clinical use on nasopharyngeal swab specimens.The performance of the FilmArrayRP has not been established in individuals who received influenza vaccine. Recent administration of a nasal influenza vaccine may cause false positive results for Influenza A and/orInfluenza B.POCT-GLUCOSE [id number] 12:16:00 Test Item Value Reference Range Interpretation Comments POC-GLUCOSE METER 196 mg/dL 70-110 H TESTED AT [facility] 6720 ([facility]) (test code = NICOLE [place]ILL[place] 1538) [address] RESPIRATORY PANEL [id number] 10:59:00 Test Item Value Reference Range Interpretation Comments HUMAN METAPNEUMOVIRUS Not detected Not detected, (BEAKER) (test code = 6173) Equivocal RHINOVIRUS (BEAKER) (test Not detected Not detected, code = 9514) Equivocal INFLUENZA A (BEAKER) (test Not detected [...] decisions. This sample was tested at the [facility] Molecular Diagnostics Laboratory using the [employer] Respiratory Panel. It is FDA cleared and has been verified and approved by the [facility] Molecular Diagnostics Laboratory for clinical use on nasopharyngeal swab specimens.The performance of the FilmArrayRP has not been established in individuals who received influenza vaccine. Recent administration of a nasal influenza vaccine may cause false positive results for Influenza A and/orInfluenza B.POCT-GLUCOSE [id number] 08:15:00 Test Item Value Reference Range Interpretation Comments POC-GLUCOSE METER 184 mg/dL 70-110 H TESTED AT [facility] 6720 (BEAKER) (test code = [place] 1538) [address] CBC W/PLT COUNT & AUTO [id number] 07:49:00 Test Item Value Reference Range Interpretation [...] APPLICABLE FOR DIALYSIS PATIEN TS. Specimen moderately [id number] 04:31:00 Test Item Value Reference Range Interpretation Comments MAGNESIUM (BEAKER) (test code = 1.9 mg/dL 1.6-2.6 627) LACTIC ACID, [id number] 04:18:00 Test Item Value Reference Range Interpretation Comments LACTATE BLOOD VENOUS (2) ([facility]) 1.3 mmol/L 0.5-2.2 (test code = 2872) Specimen moderately ictericPOCT-GLUCOSE [id number] 18:00:00 Test Item Value Reference Range Interpretation Comments POC-GLUCOSE METER 121 mg/dL 70-110 H TESTED AT [facility] 67 ([facility]) (test code = NICOLE [place] 1538) [address] [id number] 12:39:00 Test Item Value Reference Range Interpretation Comments PROCALCITONIN (BEAKER) (test code 4.50 ng/mL <0.05 H = 3036) SEPSIS RISK (ng/mL)Low: 0.05-0.50Intermediate: 0.51-2.00High: >=2.01POCT- GLUCOSE [id number] 12:20:00 Test Item Value Reference Range Interpretation Comments POC-GLUCOSE METER 148 mg/dL 70-110 H TESTED AT [facility] 6720 ([facility]) (test code = NICOLE [place] 1538) [address] LEGIONELLA ANTIGEN, [id number] 12:13:00 Test Item Value Reference Range Interpretation Comments L. PNEUMOPHILA Negative - see Negative fo r L. SEROGP 1 UR AG comment pneumophila (BEAKER) (test code serogrou p 1 antigen, = 1156) suggesting no r ecent or current infe ction with this serog roup. Legionellosis c annot be ruled out si nce other serogroup s and species may cau se disease. STREP PNEUMONIAE [id number] 12:13:00 Test Item Value Reference Range Interpretation [...] limit of the test. RAPID INFLUENZA A&B [id number] 12:11:00 Test Item Value Reference Range Interpretation Comments RAPID INFLUENZA A AG (BEAKER) Negative Negative, Inconclusive (test code = 1622) RAPID INFLUENZA B AG (BEAKER) Negative Negative, Inconclusive (test code = 1623) LACTIC ACID, [id number] 10:51:00 Test Item Value Reference Range Interpretation Comments LACTATE BLOOD VENOUS (2) (BEAKER) 3.0 mmol/L 0.5-2.2 H (test code = 2872) Specimen moderately ictericU/S, ABDOMINAL, [id number] 07:19:00REFERRING MD: ANIL SALVADOR Please perform with [...] MDReport Verified Date/Time: 10/28/2018 07:19:25 Reading Location: [address] Transitional Reading Room RAPID DRUG SCREEN, [id number] 07:07:00 Test Item Value Reference Range Interpretation [...] situations. Chain of custody not maintained. Some dzmp-vxg-xbbqntg medications, as well as adulterants, may cause inaccurate results. Clinical correlation should be applied. Liz comprehensive drug screen or confirmation of a detected drug may be performed upon request.CT, BRAIN, WITHOUT [id number] 06:42:00REFERRING MD: ANIL VEGAINAL REPORT CT, BRAIN, WITHOUT CONTRAST CLINICAL [...] Verified Date/Time: 10/28/2018 06:42:47 VITAMIN B12 AND [id number] 06:21:00 Test Item Value Reference Range Interpretation Comments VITAMIN B12 (BEAKER) (test code = 719 pg/mL 213-640 644) FOLATE (BEAKER) (test code = 362) 13.7 ng/mL >=7.0 TROPONIN [id number] 06:05:00 Test Item Value Reference Range Interpretation [...] H (test code = 2590) COMPREHENSIVE METABOLIC [id number] 05:44:00 Test Item Value Reference Range Interpretation [...] APPLICABLE FOR DIALYSIS PATIEN TS. Specimen moderately [id number] 05:38:00 Test Item Value Reference Range Interpretation Comments MAGNESIUM (BEAKER) (test code = 2.3 mg/dL 1.6-2.6 627) LACTIC ACID, [id number] 05:32:00 Test Item Value Reference Range Interpretation Comments LACTATE BLOOD VENOUS 4.1 mmol/L 0.5-2.2 H Specime n slightly (2) (BEAKER) (test hemolyzed code = 2872) Specimen moderately ictericTROPONIN [id number] 02:28:00 Test Item Value Reference Range Interpretation [...] disease, and persistent tachyarrhythmia.RAD, ABDOMEN/KUB, 1 VIEW [id number] 02:04:00REFERRING : ANIL SALVADOR Reason for exam:->NG tube placementFINAL [...] Navarrete MDReport Verified Date/Time: 10/28/2018 02:04:20 HROMBIN TIME/[id number] 01:58:00 Test Item Value Reference Range Interpretation [...] mechanical heart valves.CBC W/PLT COUNT & AUTO [id number] 01:45:00 Test Item Value Reference Range Interpretation [...] User comments: Slide comments:URINALYSIS W/ REFLEX URINE [id number] 01:36:00 Test Item Value Reference Range Interpretation [...] SOURCE(BEAKER) (test code = 2795) COMPREHENSIVE METABOLIC [id number] 01:16:00 Test Item Value Reference Range Interpretation [...] APPLICABLE FOR DIALYSIS PATIEN TS. Specimen moderately [id number] 01:15:00 Test Item Value Reference Range Interpretation Comments AMMONIA (BEAKER) (test code = 348) 69 mol/L 18-72 LACTIC ACID, [id number] 01:08:00 Test Item Value Reference Range Interpretation Comments LACTATE BLOOD VENOUS (2) (BEAKER) 3.2 mmol/L 0.5-2.2 H (test code = 2872) Specimen moderately [id number] 01:08:00 Test Item Value Reference Range Interpretation Comments MAGNESIUM (BEAKER) (test code = 1.1 mg/dL 1.6-2.6 L 627) RAD, CHEST, 1 VIEW, NON [id number] 00:52:00REFERRING MD: ANIL SALVADOR Reason for exam:->sepsisShould [...] MDReport Verified Date/Time: 10/28/2018 00:52:42 Reading Location: [address] Reading Room ACTIN (SMOOTH MUSCLE) ANTIBODY, [id number] 08:28:00 Test Item Value Reference Range Interpretation Comments SCAN RESULT (test code = 1411798) [id number] 08:27:00 Test Item Value Reference Range Interpretation Comments SCAN RESULT (test code = 5505453) NILS TITER AND [id number] 09:55:00 Test Item Value Reference Range Interpretation Comments NILS TITER (BEAKER) (test code = :160 1541) NILS PATTERN (BEAKER) (test code = Speckled 1781) ANTI-NUCLEAR ANTIBODY (NILS)2018-10-05 09:54:00 Test Item Value Reference Range Interpretation Comments ANTI-NUCLEAR ANTIBODY (NILS) (BEAKER) Positive Negative A (test code = 418) Test performed by IFA method.[id number] 10:54:00 Test Item Value Reference Range Interpretation Comments FERRITIN (BEAKER) (test code = 361) 218 ng/mL 5-275 HEPATITIS A ANTIBODY, [id number] 10:18:00 Test Item Value Reference Range Interpretation Comments HEPATITIS A IGG ANTIBODY (BEAKER) Reactive Nonreactive A (test code = 2797) ALPHA FETOPROTEIN (AFP), TUMOR [id number] 10:14:00 Test Item Value Reference Range Interpretation Comments ALPHA-FETOPROTEIN (BEAKER) (test 3.5 ng/mL <10.0 code = 1094) HEPATITIS A ANTIBODY, [id number] 10:14:00 Test Item Value Reference Range Interpretation Comments HEPATITIS A IGM ANTIBODY (BEAKER) Nonreactive Nonreactive (test code = 498) HEPATITIS B CORE ANTIBODY, [id number] 10:14:00 Test Item Value Reference Range Interpretation Comments HEPATITIS B CORE TOTAL ANTIBODY Nonreactive Nonreactive (BEAKER) (test code = 497) HEPATITIS B SURFACE [id number] 09:42:00 Test Item Value Reference Range Interpretation Comments HEPATITIS B SURFACE ANTIBODY < mIU/mL <8.0 (BEAKER) (test code = 647) HEPATITIS B SURFACE [id number] 09:36:00 Test Item Value Reference Range Interpretation [...] 41 % 20-55 (test code = 2590) [id number] 09:14:00 Test Item Value Reference Range Interpretation Comments ALPHA-1 ANTITRYPSIN (BEAKER) 159.30 mg/dL 90.00-200.00 (test code = 502) COMPREHENSIVE METABOLIC [id number] 09:10:00 Test Item Value Reference Range Interpretation [...] FOR DIALYSIS PATIEN TS. Specimen slightly ictericBILIRUBIN, [id number] 09:10:00 Test Item Value Reference Range Interpretation Comments BILIRUBIN DIRECT (BEAKER) (test 1.4 mg/dL 0.1-0.5 H code = 706) PROTHROMBIN TIME/[id number] 08:38:00 Test Item Value Reference Range Interpretation [...] mechanical heart valves.CBC W/PLT COUNT & AUTO [id number] 08:35:00 Test Item Value Reference Range Interpretation [...]
--- NOTE | 2022-06-27 10:42 | RAD REPORT ---
EXAM DESCRIPTION: CT - Head Brain Wo Cont - 06/27/2022 10:32 am CLINICAL HISTORY: dizziness Headache, drowsiness, CVA symptomology COMPARISON: Head Brain Wo Cont dated 02/07/2022; Ct Stroke Brain Wo Cont dated 06/21/2021 TECHNIQUE: All CT scans are performed using dose optimization technique as appropriate and may inclu de automated exposure control or mA/KV adjustment according to patient size. FINDINGS: No intracranial hemorrhage, hydrocephalus or extra-axial fluid collection.Mild generalized brain atrophy.No areas of brain edema or evidence of midline shift. 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 This is a benign lesion. The paranasal sinuses and mastoids are clear. The calvarium is intact. IMPRESSION: No acute intracranial abnormality.
[2022-06-27 10:49] LABS: Absolute Lymphocytes (CBC) 1.3 K/uL (0.7-4.9); Hematocrit 35.5 % (39.6-49.0); Lymphocytes % 32.1 % (15.3-44.8); MCV 76.6 fL (80-100); MPV 9.3 fL (7.6-11.3); RBC Red Blood Cell Count 4.63 M/uL (4.33-5.43)
--- NOTE | 2022-06-27 10:49 | RAD REPORT ---
EXAM DESCRIPTION: RAD - Chest Single View - 06/27/2022 10:39 am CLINICAL HISTORY: DYSPNEA Chest pain. COMPARISON: Chest Single View dated 02/07/2022; Chest Single View dated 01/24/2022; Chest Single View dated 06/21/2021; Chest Single View dated 05/10/2021 FINDINGS: Portable technique limits examination quality. The lungs are grossly clear. The heart is normal in size. No displaced fractures. IMPRESSION: No acute intrathoracic process suspected.
[2022-06-27 10:50] LABS: SARS-CoV-2 Antigen Rapid Res Negative (Negative)
[2022-06-27 10:59] LABS: Albumin 2.4 g/dL (3.4-5.0); Bilirubin Direct 0.6 mg/dL (0-0.2); Bilirubin Total 1.5 mg/dL (0.2-1.0); Magnesium 1.8 mg/dL (1.6-2.4); Potassium 3.8 mmol/L (3.5-5.1); Protein, Total 6.3 g/dL (6.4-8.2)
[2022-06-27 11:00] LABS: Troponin High Sensitivity 211.8 pg/mL (<58.9)
[2022-06-27 11:02] LABS: Urine Blood Trace-intact (Negative); Urine Glucose Negative (Negative); Urine Protein Negative (Negative)
[2022-06-27 11:15] LABS: Barbiturates NEGATIVE (NEGATIVE); Benzodiazepines NEGATIVE (NEGATIVE); Cocaine NEGATIVE (NEGATIVE); METHAMPHETAM NEGATIVE (NEGATIVE); Methadone NEGATIVE (NEGATIVE); Opiates NEGATIVE (NEGATIVE); Phencyclidine NEGATIVE (NEGATIVE); THC Cannibis NEGATIVE (NEGATIVE)
--- NOTE | 2022-06-27 11:21 | ER ---
Nurse's Notes [facility] Name: Tonny Cardona Age: 66 yrs Sex: Male : 1955 Arrival Date: 06/27/2022 Time: 09:59 Bed 4 Private MD: Diagnosis: Dizziness and giddiness;Hepatic Encephalopathy Presentation: 06/27 10:11 Chief complaint: Patient states: Woke this morning feeling drunk, requesting for jl7 ammonia level to be checked. Coronavirus screen: Vaccine status: Patient reports receiving the 2nd dose of the covid vaccine. At this time, the client does not indicate any symptoms associated with coronavirus-19. Ebola Screen: No symptoms or risks identified at this time. Initial Sepsis Screen: Does the patient meet any 2 criteria? No. Patient's initial sepsis screen is negative. Does the patient have a suspected source of infection? No. Patient's initial sepsis screen is negative. Risk Assessment: Do you want to hurt yourself or someone else? Patient reports no desire to harm self or others. Onset of symptoms is unknown. 10:11 Method Of Arrival: Ambulatory jl7 10:11 Acuity: FAIZA 3 jl7 Triage Assessment: 10:20 General: Appears in no apparent distress. uncomfortable, Behavior is calm, cooperative, jl7 appropriate for age. Pain: Denies pain. Neuro: Level of Consciousness is awake, alert, obeys commands, Oriented to person, place, time, situation, Speech is slurred. Historical: - Allergies: 10:15 Ativan; jl7 - PMHx: 10:15 ADD/ADHD; Cirrhosis; Diabetes - NIDDM; Hypertension; psoriasis; jl7 - PSHx: 10:15 hernia repair; jl7 - Immunization history:: Adult Immunizations unknown. - Family history:: not pertinent. - Social history:: Smoking status: unknown. - Hospitalizations: : No recent hospitalization is reported. Screenin:20 [facility] ED Fall Risk Assessment (Adult) History of falling in the last 3 months, bp including since admission No falls in past 3 months (0 pts). Abuse screen: Denies threats or abuse. Denies injuries from another. Nutritional screening: No deficits noted. Tuberculosis screening: No symptoms or risk factors identified. Assessment: 10:20 General: SEE TRIAGE NOTE. bp 11:15 Reassessment: No changes from previously documented assessment. Patient and/or family bp updated on plan of care and expected duration. Pain level reassessed. PT RETURNED FROM RAD. 11:45 Reassessment: Dr. Chacko speaking to pt's daughter [id number]. aa5 12:25 Reassessment: PT ARGUING WITH FAMILY. PT DOES NOT WISH TO BE ADMITTED. FAMILY AND MD bp ATTEMPTING TO SLIDE MAKER PT OTHERWISE. Vital Signs: 10:11 BP 151 / 73; Pulse 72; Resp 17 S; Temp 98.3(O); Pulse Ox 98% on R/A; Weight 108.86 kg jl7 (R); Height 5 ft. 6 in. (167.64 cm) (R); Pain 0/10; 11:15 BP 130 / 117; Pulse 68; Resp 16; Pulse Ox 100% ; bp 12:24 BP 135 / 75; Pulse 64; Resp 16; Pulse Ox 100% ; bp 10:11 Body Mass Index 38.74 (108.86 kg, 167.64 cm) jl7 ED Course: 09:59 Patient arrived in ED. am2 10:00 Irving Chacko MD is Attending Physician. rn 10:12 Williams Almonte, DIANE is Primary Nurse. bp 10:15 Triage completed. jl7 10:20 Arm band placed on right wrist. jl7 10:20 Patient has correct armband on for positive identification. Bed in low position. Call bp light in reach. Side rails up X2. 10:32 CT Head Brain wo Cont In Process Unspecified. EDMS 10:32 Inserted saline lock: 20 gauge in right antecubital area, using aseptic technique. rs5 Blood collected. 10:32 SARS RAPID Sent. rs5 10:32 ETOH Level Sent. rs5 10:32 AMMONIA Sent. rs5 10:33 Basic Metabolic Panel Sent. rs5 10:33 CBC with Diff Sent. rs5 10:33 Hepatic Function Sent. rs5 10:33 High Sensitivity Troponin Sent. rs5 10:33 Magnesium Sent. rs5 10:33 Protime (+inr) Sent. rs5 10:33 Ptt, Activated Sent. rs5 10:40 XRAY Chest (1 view) In Process Unspecified. EDMS 11:20 Andrae Renteria is Hospitalizing Provider. rn 11:48 Bebeto Harley MD is Hospitalizing Provider. rn 15:19 No provider procedures requiring assistance completed. Patient admitted, IV remains in jl7 place. intact, No redness/swelling at site. Administered Medications: No medications were administered Medication: 10:20 VIS not applicable for this client. bp Outcome: 11:20 Decision to Hospitalize by Provider. rn 15:20 Patient left the ED. jl7 Signatures: Dispatcher [employer] EDMS Irving Chacko MD MD rn Calderon, Audri RN RN aa5 Denise Patterson RN RN jl7 Robyn Andrews am2 Williams Almonte RN RN bp Mathew Preciado rs5 Corrections: (The following items were deleted from the chart) 10:16 10:11 BP 151 / 73; Pulse 72bpm; Resp 77bpm; Spontaneous; Pulse Ox 98% RA; Temp 98.3F jl7 Oral; 108.86 kg Reported; Height 5 ft. 6 in. Reported; BMI: 38.7; Pain 0/10; jl7
--- NOTE | 2022-06-27 11:21 | EDPHYS ---
Physician Documentation [facility] Name: Tonny Cardona Age: 66 yrs Sex: Male : 1955 Arrival Date: 06/27/2022 Time: 09:59 Bed 4 Private MD: ED Physician Irving Chacko HPI: 06/27 10:16 This 66 yrs old Male presents to ER via Ambulatory with complaints of rn Dizziness. 10:16 The patient presents with dizziness, lightheadedness, feeling off balance, sense of rn spinning. Onset: The symptoms/episode began/occurred this morning. Modifying factors: The symptoms are alleviated by holding head still, lying down, the symptoms are aggravated by standing up, changing position. Associated signs and symptoms: Pertinent positives: confusion, Pertinent negatives: abdominal pain, chest pain, head injury, headache, seizure, vomiting. Severity of symptoms: At their worst the symptoms were moderate in the emergency department the symptoms are unchanged. The patient has experienced similar episodes in the past. The patient has not recently seen a physician. Pt reports feeling dizzy, went to bed fine last night, when woke up and tried to get out of bed, was already aware of dizziness, worse with changing position and standing, difficult to walk. Came in to get his Ammonia checked because has had problems similar to this before. States compliant with lactulose BID. No head injury. No focal neuro complaint. No chest pain/sob/abd pain. No medication change recently. . Historical: - Allergies: 10:15 Ativan; jl7 - PMHx: 10:15 ADD/ADHD; Cirrhosis; Diabetes - NIDDM; Hypertension; psoriasis; jl7 - PSHx: 10:15 hernia repair; jl7 - Immunization history:: Adult Immunizations unknown. - Family history:: not pertinent. - Social history:: Smoking status: unknown. - Hospitalizations: : No recent hospitalization is reported. ROS: 10:16 Constitutional: Negative for fever, chills, and weight loss, Eyes: Negative for injury, rn pain, redness, and discharge, Neck: Negative for injury, pain, and swelling, Cardiovascular: Negative for chest pain, palpitations, and edema, Respiratory: Negative for cough, and pleuritic chest pain, Abdomen/GI: Negative for abdominal pain, nausea, vomiting, diarrhea, and constipation, Back: Negative for injury and pain, MS/Extremity: Negative for injury and deformity, Skin: Negative for injury, rash, and discoloration, Neuro: Negative for headache, numbness, tingling, and seizure. Exam: 10:27 Constitutional: Disheveled patient, no acute distress, seems confused and slow to rn respond Head/Face: Normocephalic, atraumatic. ENT: dry MM, no stridor Cardiovascular: Regular rate and rhythm. No pulse deficits. Respiratory: No increased work of breathing, no retractions or nasal flaring. + intermittent wheezing noted Abdomen/GI: soft, non-tender Skin: Warm, dry MS/ Extremity: Pulses equal, no cyanosis Neuro: Awake, GCS 15, seems confused, moves all 4 ext with equal strength, sensation intact, oriented to person/place/situation. 16:04 ECG was reviewed by the Attending Physician. rn Vital Signs: 10:11 BP 151 / 73; Pulse 72; Resp 17 S; Temp 98.3(O); Pulse Ox 98% on R/A; Weight 108.86 kg jl7 (R); Height 5 ft. 6 in. (167.64 cm) (R); Pain 0/10; 11:15 BP 130 / 117; Pulse 68; Resp 16; Pulse Ox 100% ; bp 12:24 BP 135 / 75; Pulse 64; Resp 16; Pulse Ox 100% ; bp 10:11 Body Mass Index 38.74 (108.86 kg, 167.64 cm) jl7 MDM: 10:00 Patient medically screened. rn 10:27 ED course: Pt with dizziness, most likely hepatic encephalopathy given confusion, but rn also states went to bed feeling fine. Will have to rule out CVA. Not TNKase candidate due to fact that symptoms present immediately upon waking up without normal period. Last known normal is last night prior to going to bed, thus outside of window for TNKase.. 11:19 Differential diagnosis: CVA, generalized weakness, hyperventilation, hypovolemia, rn idiopathic dizziness, TIA, vertigo. Differential diagnosis: cardiac arrhythmia, hepatic encephalopathy. Data reviewed: vital signs, nurses notes. Counseling: I had a detailed discussion with the patient and/or guardian regarding: the historical points, exam findings, and any diagnostic results supporting the discharge/admit diagnosis, lab results, radiology results, the need for further work-up and treatment in the hospital. Response to treatment: the patient's symptoms have mildly improved after treatment, and as a result, I will admit patient. 11:21 ED course: NO acute findings on CT head, elevated ammonia, appears confused and rn encephalopathic, will admit to hospitalist service for further care and rule out CVA. . 11:21 Consideration of Admission/Observation Patient was admitted/placed on observation. rn Management of patient was discussed with the following: Hospitalist: Discussed case with hospitalist regarding admission for hepatic encephalopathy and rule out CVA. . 06/27 10:13 Order name: Basic Metabolic Panel; Complete Time: 11: rn 06/27 10:13 Order name: CBC with Diff; Complete Time: rn 06/27 10:13 Order name: Hepatic Function; Complete Time: rn 06/27 10:13 Order name: High Sensitivity Troponin; Complete Time: rn 06/27 10:13 Order name: Magnesium; Complete Time: : rn 06/27 10:13 Order name: Protime (+inr); Complete Time: 08: rn 06/27 10:13 Order name: Ptt, Activated; Complete Time: 08: rn 06/27 10:13 Order name: UDS; Complete Time: : rn 06/27 10:13 Order name: CT Head Brain wo Cont; Complete Time: rn 06/27 10:13 Order name: AMMONIA; Complete Time: rn 06/27 10:13 Order name: ETOH Level; Complete Time: rn 06/27 10:13 Order name: SARS RAPID; Complete Time: rn 06/27 10:14 Order name: XRAY Chest (1 view); Complete Time: rn 06/27 11:02 Order name: Urine Dipstick-Ancillary; Complete Time: 11: EDMS 06/27 10:13 Order name: EKG; Complete Time: 10:14 rn 06/27 10:13 Order name: Accucheck; Complete Time: : rn 06/27 10:13 Order name: Cardiac monitoring; Complete Time: : rn 06/27 10:13 Order name: EKG - Nurse/Tech; Complete Time: 10:32 rn 06/27 10:13 Order name: IV Saline Lock; Complete Time: :33 rn 06/27 10:13 Order name: Labs collected and sent; Complete Time: 10: rn 06/27 10:13 Order name: NPO; Complete Time: : rn 06/27 10:13 Order name: O2 Per Protocol; Complete Time: rn 06/27 10:13 Order name: O2 Sat Monitoring; Complete Time: : rn 06/27 10:13 Order name: Stroke Swallow Screen; Complete Time: 10:35 rn EC:04 Rate is 70 beats/min. Rhythm is regular. Left axis deviation noted. QRS is positive in rn lead I and negative in lead aVF. MN interval is normal. QRS interval is normal. QT interval is prolonged at 462 msec. No Q waves. T waves are Normal. No ST changes noted. Clinical impression: NSR w/ Non-specific ST/T Changes. Interpreted by me. Reviewed by me. Administered Medications: No medications were administered Disposition Summary: 06/27/22 11:20 Hospitalization Ordered Hospitalization Status: Observation rn Location: Telemetry/MedSurg (observation) rn Condition: Stable rn Problem: new rn Symptoms: have improved rn Bed/Room Type: Standard rn Provider: Bebeto Harley(06/27/22 11:48) rn Room Assignment: 221(06/27/22 13:20) bd Diagnosis - Dizziness and giddiness rn - Hepatic Encephalopathy rn Forms: - Medication Reconciliation Form rn - SBAR form rn Signatures: Dispatcher [employer] EDNette Slaughter Roman, MD MD rn Leal, Jahala, RN RN jl7 Peltier, Brian RN RN bp Corrections: (The following items were deleted from the chart) 10:27 10:16 Constitutional: Negative for fever, chills, and weight loss, Eyes: Negative for rn injury, pain, redness, and discharge, Neck: Negative for injury, pain, and swelling, Cardiovascular: Negative for chest pain, palpitations, and edema, Respiratory: Negative for shortness of breath, cough, wheezing, and pleuritic chest pain, Abdomen/GI: Negative for abdominal pain, nausea, vomiting, diarrhea, and constipation, Back: Negative for injury and pain, MS/Extremity: Negative for injury and deformity, Skin: Negative for injury, rash, and discoloration, Neuro: Negative for headache, numbness, tingling, and seizure, rn 11:48 11:20 Andrae Renteria rn rn 13:20 11:20 haresh dooley
[2022-06-27 13:36] LABS: Protime INR 1.25
[2022-06-27] MEDS ORDERED: ONDANSETRON 4 MG/2 ML VIAL IV PRN (15:40)
[2022-06-27] MEDS ORDERED: GLUCAGON 1 MG/VIAL IM PRN (15:41)
--- NOTE | 2022-06-27 15:47 | P.HP ---
Certification for Inpatient Patient admitted to: Observation With expected LOS: <2 Midnights Patient will require the following post-hospital care: None Practitioner: I am a practitioner with admitting privileges, knowledge of patient current condition, hospital course, and medical plan of care. 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 He states that his daughter states he wasn't look well and brought him to the ER. He states he did not feel much. The patient does sometimes remember his symptoms. Otherwise he is a very compliant patient However he can get confused easily. The patient was found to have a slight elevated ammonium level. He may have forgotten a few doses of his lactulose. Allergies lorazepam [From Ativan] Allergy (Severe, Verified 10/04/21 13:11) Shortness of breath Home Medications: Unobtainable 04/01/22 - Past Medical/Surgical History Diabetic: Yes -: DM II -: HTN -: CHF -: Liver cirrhosis, -: Hyperlipidemia -: Obesity -: GERD -: Gastric varices -: H pylori gastritis -: psoriasis -: Hernia repair Psychosocial/ Personal History: Patient has significant other. - Family History Father -: Diabetes Mother -: Liver disease - Social History Alcohol use: No CD- Drugs: No Caffeine use: Yes Review of Systems 10-point ROS is otherwise unremarkable Physical Examination - Vital Signs Temperature: 98.3 F Blood Pressure: 130/117 Pulse: 68 Respirations: 16 - Physical Exam General: Alert, In no apparent distress HEENT: Atraumatic, PERRLA, Mucous membr. moist/pink, EOMI, Sclerae nonicteric Neck: Supple, 2+ carotid pulse no bruit, No LAD, Without JVD or thyroid abnormality Respiratory: Clear to auscultation bilaterally, Normal air movement Cardiovascular: Regular rate/rhythm, Normal S1 S2 Gastrointestinal: Normal bowel sounds, No tenderness Musculoskeletal: No tenderness Integumentary: No rashes Neurological: Normal gait, Normal speech, Normal strength at 5/5 x4 extr, Normal tone, Normal affect Lymphatics: No axilla or inguinal lymphadenopathy - Studies Laboratory Data (last 24 hrs) 06/27/22 10:28: WBC 4.20 L, Hgb 11.4 L, Hct 35.5 L, Plt Count 74 L 06/27/22 10:28: Sodium 140, Potassium 3.8, BUN 8, Creatinine 0.64 L, Glucose 213 H, Magnesium 1.8, Total Bilirubin 1.5 H, AST 38 H, ALT 35, Alkaline Phosphatase 247 H Assessment and Plan - Problems (Diagnosis) (1) Hepatic encephalopathy Current Visit: No Status: Acute Plan: Patient is doing well. Will continue his lactulose. Recheck him in the morning (2) Diabetes mellitus Onset Date: 05/24/18 Current Visit: No Status: Chronic Plan: continue home medications. Sliding scale insulin and an ada diet Qualifiers: Diabetes mellitus type: type 2 Diabetes mellitus continuous churn buttermaker insulin use: with continuous churn buttermaker use Diabetes mellitus complication status: without complication Qualified Code(s): E11.9 - Type 2 diabetes mellitus without complications; Z79.4 - long-term (current) use of insulin (3) Tinea corporis Current Visit: Yes Status: Acute Plan: was diagnoised last week. Is improving. Will give him qweekly fluconazole. (4) HTN (hypertension) Onset Date: 05/24/18 Current Visit: No Status: Chronic Plan: restart his home lisinopril Qualifiers: Hypertension type: primary hypertension Discharge Plan: Home Plan to discharge in: 24 Hours - Advance Directives Does patient have a Living Will: No Does patient have a Durable POA for Healthcare: No - Code Status/Comfort Care Code Status Assessed: No Code Status: Full Code Physician Review: Patient Assessed, Agree with Above Assessment and Plan Critical Care: No Time Spent Managing Pts Care (In Minutes): 20
[2022-06-27 16:00] VITALS: BMI 38.4
[2022-06-27] MEDS ORDERED: FLUCONAZOLE 100 MG TAB PO ONE (16:12)
[2022-06-27] MEDS: INSULIN -REGULAR HUMAN 50 UNIT/0.5 ML ML SQ SCH ×2 (16:30→21:00)
[2022-06-27] MEDS ORDERED: D10W 250 ML BAG IV PRN (16:30)
[2022-06-27] MEDS: LACTULOSE 20 GM/30 ML UCUP PO SCH (16:46)
[2022-06-27] MEDS: METFORMIN HCL 500 MG TAB PO SCH (16:46)
[2022-06-27] MEDS ORDERED: PNEUMOCOCCAL VACCINE 0.5 ML IMVAC ONE (17:00)
[2022-06-27 23:36] VITALS: O2SAT 98
[2022-06-28] MEDS: LACTULOSE 20 GM/30 ML UCUP PO SCH (05:43)
[2022-06-28 06:05] LABS: Absolute Lymphocytes (CBC) 1.6 K/uL (0.7-4.9); Hematocrit 35.5 % (39.6-49.0); Lymphocytes % 37.4 % (15.3-44.8); MPV 8.7 fL (7.6-11.3); RBC Red Blood Cell Count 4.61 M/uL (4.33-5.43)
[2022-06-28 06:15] LABS: Potassium 3.6 mmol/L (3.5-5.1)
[2022-06-28] MEDS: INSULIN -REGULAR HUMAN 50 UNIT/0.5 ML ML SQ SCH (07:30)
--- NOTE | 2022-06-28 07:57 | P.DS ---
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 He states that his daughter states he wasn't look well and brought him to the ER. He states he did not feel much. The patient does sometimes remember his symptoms. Otherwise he is a very compliant patient However he can get confused easily. The patient was found to have a slight elevated ammonium level. He may have forgotten a few doses of his lactulose. Hospital Course: Patient was admitted for dizziness and elevated ammonia. He is doing much better and his ammonia is trending down. Will discharge him home. Have the patient follow up in the office in a week. Thank you for allowing me to take part in his care. Vital Signs/Physical Exam: Temp Pulse Resp BP Pulse Ox 97.6 F 75 18 135/61 96 06/28/22 04:00 06/28/22 04:00 06/28/22 04:00 06/28/22 04:00 06/28/22 04:00 General: Alert, In no apparent distress HEENT: Atraumatic, PERRLA, EOMI Neck: Supple, JVD not distended Respiratory: Clear to auscultation bilaterally, Normal air movement Cardiovascular: Regular rate/rhythm, Normal S1 S2 Gastrointestinal: Normal bowel sounds, No tenderness Musculoskeletal: No tenderness Integumentary: No rashes Neurological: Normal speech, Normal tone, Normal affect Lymphatics: No axilla or inguinal lymphadenopathy Laboratory Data at Discharge: WBC 4.20 K/uL (4.3-10.9) L 06/28/22 05:32 Hgb 11.3 g/dL (13.6-17.9) L 06/28/22 05:32 Hct 35.5 % (39.6-49.0) L 06/28/22 05:32 Plt Count 57 K/uL (152-406) L 06/28/22 05:32 PT 13.8 SECONDS (9.5-12.5) H 06/27/22 13:00 INR 1.25 06/27/22 13:00 APTT 34.3 SECONDS (24.3-36.9) 06/27/22 13:00 Sodium 140 mmol/L (136-145) 06/28/22 05:32 Potassium 3.6 mmol/L (3.5-5.1) 06/28/22 05:32 BUN 7 mg/dL (7-18) 06/28/22 05:32 Creatinine 0.55 mg/dL (0.70-1.30) L 06/28/22 05:32 Glucose 112 mg/dL (74-106) H 06/28/22 05:32 Magnesium 1.8 mg/dL (1.6-2.4) 06/27/22 10:28 Total Bilirubin 1.5 mg/dL (0.2-1.0) H 06/27/22 10:28 AST 38 U/L (15-37) H 06/27/22 10:28 ALT 35 U/L (16-61) 06/27/22 10:28 Alkaline Phosphatase 247 U/L (45-117) H 06/27/22 10:28 Home Medications: Carvedilol [Coreg] 3.125 mg PO BID 06/27/22 Ferrous Gluconate 240 mg PO DAILY 06/27/22 Gabapentin 100 mg PO TID 06/27/22 Insulin Glargine,Hum.rec.anlog [Toujeo Solostar] 30 units SQ DAILY 06/27/22 Lactulose 15 ml PO BID 06/27/22 Lisinopril [Zestril] 20 mg PO DAILY 06/27/22 Metformin ER [Glucophage ER*] 500 mg PO BID 06/27/22 Pantoprazole [Protonix Tab*] 40 mg PO DAILY 06/27/22 Spironolactone 25 mg PO BID 06/27/22 hydrOXYzine HCL [Hydroxyzine HCl] 20 mg PO BIDP PRN 06/27/22 Diet: hepatic di Activity: Ad jasmin Followup: Belén Alcantar FNP [facility] [Primary Care Provider] - 1 Week Physician Review: Patient Assessed, Agree with Above Assessment and Plan Time spent managing pt's care (in minutes): 30
[2022-06-28 09:00] VITALS: BP 133/68; TEMP 97.8
[2022-06-28] MEDS ORDERED: SPIRONOLACTONE 25 MG TABLET PO SCH (09:00)
[2022-06-28] MEDS ORDERED: lisinopriL 20 MG TAB PO SCH (09:00)
[2022-06-28] MEDS ORDERED: INSULIN GLARGINE 100 UNIT/ML SQ SCH (09:00)
[2022-06-28] MEDS: METFORMIN HCL 500 MG TAB PO SCH (09:07)
--- NOTE | 2022-06-28 16:59 | EKG ---
Test Date: 2022-06-27 Test Time: 10:15:56 Crm Developer: VITO MEASUREMENT RESULTS: Intervals: Rate: 70 KS: 166 QRSD: 82 QT: 428 QTc: 462 Gaylord: P: 25 KS: 166 QRS: -51 T: 20 INTERPRETIVE STATEMENTS: Normal sinus rhythm RSR' or QR pattern in V1 suggests right ventricular conduction delay Left anterior fascicular block Prolonged QT Abnormal ECG Compared to ECG 03/30/2022 16:14:31 RSR' in V1 or V2 now present Prolonged QT interval now present Electronically Signed On 06-28-22 16:55:06 [employer] NUTRITIONIST by Fazal Wright
[2022-06-28] MEDS ORDERED: LACTULOSE 20 GM/30 ML UCUP PO SCH (18:00)
== END 2022-06-28 10:55 | disposition home or self-care (01) ==
LOC: ER 09:58 → ERHOLD 12:21 → 2ND 14:05
PROVIDERS: ADMIT Internal Medicine; ATTEND Internal Medicine
DX: K76.82 Hepatic encephalopathy (principal); E11.9 Type 2 diabetes mellitus without complications; K70.30 Alcoholic cirrhosis of liver without ascites; B35.4 Tinea corporis; I10 Essential (primary) hypertension; Z79.4 Long term (current) use of insulin; Z20.822 Contact with and (suspected) exposure to COVID-19; Z23 Encounter for immunization
CPT/HCPCS: 93005; 85025 ×2; 80048 ×2; 36415; 82140 ×2; 83735; 85610; 82947 ×3; 80076; 85730; 81003; 84484; 80307; 70450; 71045; 99283; 87811; G0480; G0378

== ENCOUNTER 2022-08-13 13:15 | Inpatient (IN) | payer OTHER, MEDICARE ==
--- OUTSIDE RECORDS SUMMARY | 2022-08-13 13:34 | XMS REPORT | Continuity of Care Document ---
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 Misc approval) ACCU-CHEK GUIDE blood sugar 2020-0 Yes [id number] Use BID, [facility] diagnostic 5-19 DX E11.9 ity o f (ACCU-CHEK 00:00: ([employer] [place] GUIDE TEST 00 upon Medical STRIPS) insurance Branch strip approval) rifAXIMin 2020-0 Yes [id number] 550mg Take 1 [facility] 550 mg 5-19 tablet by ity of tablet 00:00: mouth (two) Medical times Branch daily. furosemide 2020-0 Yes [id number] 40mg Take 1 [facility] 40 mg 5-19 tablet by ity of tablet 00:00: mouth 00 every Medical morning Branch and evening. hydrOXYzine 2020-0 Yes [id number] 50mg Take 1 U nivers 50 mg 5-19 tablet by ity of tablet 00:00: mouth 3 [place] 00 (three) Medical times Branch daily as needed for Itching. lisinopriL 2020-0 Yes [id number] 20mg Take 1 U nivers 20 mg 5-19 tablet by ity of tablet 00:00: mouth 00 daily. Medical Branch spironolact 2020-0 Yes [id number] 25mg Take 1 [facility] one 25 mg 5-19 tablet by ity o f tablet 00:00: mouth 2 (two) Medical times Branch daily. carvediloL 2020-0 Yes [id number] 3.125mg Take 1 [facility] 3.125 mg 5-19 tablet by ity of tablet 00:00: mouth 2 (two) Medical times Branch daily with meals. Pitavastati Yes [id number] 2mg Take 2 mg [facility] n (LIVALO) 5-19 by mouth ity o f 2 mg Tab 00:00: daily. Medical Branch metFORMIN 2020-0 Yes [id number] 500mg Take 1 [facility] 500 mg 5-19 tablet by ity of tablet 00:00: mouth 2 (two) Medical times Branch daily with meals. Blood-Gluco Yes [id number] Use BID, [facility] se Meter 5-19 DX E11.9 ity of (ACCU-CHEK 00:00: ([employer] [place] GUIDE 00 upon [facility] GLUCOSE insurance Branch METER) Misc approval) ACCU-CHEK GUIDE blood sugar 2020-0 Yes [id number] Use BID, [facility] diagnostic 5-19 DX E11.9 ity o f (ACCU-CHEK 00:00: ([facility] [place] GUIDE TEST 00 upon Medical STRIPS) insurance Branch strip approval) rifAXIMin 2020-0 Yes [id number] 550mg Take 1 [facility] 550 mg 5-19 tablet by ity of tablet 00:00: mouth 2 (two) Medical times Branch daily. hydrOXYzine 2020-0 Yes [id number] 50mg Take 1 U nivers 50 mg 5-19 tablet by ity of tablet 00:00: mouth 3 (three) Medical times Branch daily as needed for Itching. lisinopriL 2020-0 Yes [id number] 20mg Take 1 U nivers 20 mg 5-19 tablet by ity of tablet 00:00: mouth 00 daily. Medical Branch spironolact 2020-0 Yes [id number] 25mg Take 1 [facility] one 25 mg 5-19 tablet by ity o f tablet 00:00: mouth 2 (two) Medical times Branch daily. carvediloL Yes [id number] 3.125mg Take 1 [facility] 3.125 mg 5-19 tablet by ity of tablet 00:00: mouth 2 (two) Medical times Branch daily with meals. Pitavastati Yes [id number] 2mg Take 2 mg [facility] n (LIVALO) 5-19 by mouth ity o f 2 mg Tab 00:00: daily. Medical Branch metFORMIN 2020- Yes [id number] 500mg Take 1 [facility] 500 mg 5-19 tablet by ity of tablet 00:00: mouth 2 (two) Medical times Branch daily with meals. Blood-Gluco Yes [id number] Use BID, Univers se Meter 5-19 DX E11.9 ity of (ACCU-CHEK 00:00: ([employer] [place] GUIDE 00 upon Medical GLUCOSE insurance Branch METER) Misc approval) ACCU-CHEK GUIDE blood sugar Yes [id number] Use BID, [facility] diagnostic 5-19 DX E11.9 ity o f (ACCU-CHEK 00:00: ([facility] GUIDE TEST 00 upon Medical STRIPS) insurance Branch strip approval) rifAXIMin 2020- Yes [id number] 550mg Take 1 [facility] 550 mg 5-19 tablet by ity of tablet 00:00: mouth 2 (two) Medical times Branch daily. hydrOXYzine 2020- Yes [id number] 50mg Take 1 U nivers 50 mg 5-19 tablet by ity of tablet 00:00: mouth 3 (three) Medical times Branch daily as needed for Itching. lisinopriL 2020- Yes [id number] 20mg Take 1 U nivers 20 mg 5-19 tablet by ity of tablet 00:00: mouth daily. Medical Branch spironolact 2020-0 Yes [id number] 25mg Take 1 [facility] one 25 mg 5-19 tablet by ity o f tablet 00:00: mouth 2 (two) Medical times Branch daily. carvediloL Yes [id number] 3.125mg Take 1 [facility] 3.125 mg 5-19 tablet by ity of tablet 00:00: mouth 2 (two) Medical times Branch daily with meals. Pitavastati 2020-0 Yes [id number] 2mg Take 2 mg [facility] n (LIVALO) 5-19 by mouth ity o f 2 mg Tab 00:00: daily. Medical Branch metFORMIN 2020-0 Yes [id number] 500mg Take 1 [facility] 500 mg 5-19 tablet by ity of tablet 00:00: mouth 2 (two) Medical times Branch daily with meals. Blood-Gluco 2020-0 Yes [id number] Use BID, Univers se Meter 5-19 DX E11.9 ity of (ACCU-CHEK 00:00: (Brand [place] GUIDE 00 upon Medical GLUCOSE insurance Branch METER) Misc approval) ACCU-CHEK GUIDE blood sugar 2020-0 Yes [id number] Use BID, [facility] diagnostic 5-19 DX E11.9 ity o f (ACCU-CHEK 00:00: ([facility] GUIDE TEST 00 upon Medical STRIPS) insurance Branch strip approval) rifAXIMin 2020-0 Yes [id number] 550mg Take 1 [facility] 550 mg 5-19 tablet by ity of tablet 00:00: mouth (two) Medical times Branch daily. hydrOXYzine 2020-0 Yes [id number] 50mg Take 1 U nivers 50 mg 5-19 tablet by ity of tablet 00:00: mouth 3 (three) Medical times Branch daily as needed for Itching. lisinopriL 2020-0 Yes [id number] 20mg Take 1 U nivers 20 mg 5-19 tablet by ity of tablet 00:00: mouth daily. Medical Branch spironolact 2020-0 Yes [id number] 25mg Take 1 [facility] one 25 mg 5-19 tablet by ity o f tablet 00:00: mouth 2 (two) Medical times Branch daily. carvediloL 2020-0 Yes [id number] 3.125mg Take 1 [facility] 3.125 mg 5-19 tablet by ity of tablet 00:00: mouth (two) Medical times Branch daily with meals. Pitavastati 2020-0 Yes [id number] 2mg Take 2 mg [facility] n (LIVALO) 5-19 by mouth ity o f 2 mg Tab 00:00: daily. Medical Branch metFORMIN 2020-0 Yes [id number] 500mg Take 1 [facility] 500 mg 5-19 tablet by ity of tablet 00:00: mouth 2 (two) Medical times Branch daily with meals. Blood-Gluco 2020-0 Yes [id number] Use BID, Univers se Meter 5-19 DX E11.9 ity of (ACCU-CHEK 00:00: ([facility] GUIDE 00 upon Medical GLUCOSE insurance Branch METER) Misc approval) ACCU-CHEK GUIDE blood sugar 2020-0 Yes [id number] Use BID, [facility] diagnostic 5-19 DX E11.9 ity o f (ACCU-CHEK 00:00: ([facility] GUIDE TEST 00 upon Medical STRIPS) insurance Branch strip approval) rifAXIMin 2020-0 Yes [id number] 550mg Take 1 [facility] 550 mg 5-19 tablet by ity of tablet 00:00: mouth (two) Medical times Branch daily. hydrOXYzine 2020-0 Yes [id number] 50mg Take 1 U nivers 50 mg 5-19 tablet by ity of tablet 00:00: mouth 3 (three) Medical times Branch daily as needed for Itching. lisinopriL 2020-0 Yes [id number] 20mg Take 1 U nivers 20 mg 5-19 tablet by ity of tablet 00:00: mouth daily. Medical Branch spironolact 2020-0 Yes [id number] 25mg Take 1 [facility] one 25 mg 5-19 tablet by ity o f tablet 00:00: mouth 2 (two) Medical times Branch daily. carvediloL 2020-0 Yes [id number] 3.125mg Take 1 [facility] 3.125 mg 5-19 tablet by ity of tablet 00:00: mouth (two) Medical times Branch daily with meals. Pitavastati 2020-0 Yes [id number] 2mg Take 2 mg [facility] n (LIVALO) 5-19 by mouth ity o f 2 mg Tab 00:00: daily. Medical Branch metFORMIN 2020-0 Yes [id number] 500mg Take 1 [facility] 500 mg 5-19 tablet by ity of tablet 00:00: mouth (two) Medical times Branch daily with meals. Blood-Gluco 2020-0 Yes [id number] Use BID, Univers se Meter 5-19 DX E11.9 ity of (ACCU-CHEK 00:00: ([facility] GUIDE 00 upon Medical GLUCOSE insurance Branch METER) Misc approval) ACCU-CHEK GUIDE blood sugar 2020-0 Yes [id number] Use BID, [facility] diagnostic 5-19 DX E11.9 ity o f (ACCU-CHEK 00:00: ([facility] [place] GUIDE TEST 00 upon Medical STRIPS) insurance Branch strip approval) rifAXIMin 2020-0 Yes [id number] 550mg Take 1 [facility] 550 mg 5-19 tablet by ity of tablet 00:00: mouth 2 (two) Medical times Branch daily. hydrOXYzine 2020-0 Yes [id number] 50mg Take 1 U nivers 50 mg 5-19 tablet by ity of tablet 00:00: mouth 3 (three) Medical times Branch daily as needed for Itching. lisinopriL 2020-0 Yes [id number] 20mg Take 1 U nivers 20 mg 5-19 tablet by ity of tablet 00:00: mouth daily. Medical Branch spironolact 2020-0 Yes [id number] 25mg Take 1 [facility] one 25 mg 5-19 tablet by ity o f tablet 00:00: mouth 2 (two) Medical times Branch daily. carvediloL 2020-0 Yes [id number] 3.125mg Take 1 [facility] 3.125 mg 5-19 tablet by ity of tablet 00:00: mouth 2 (two) Medical times Branch daily with meals. Pitavastati 2020-0 Yes [id number] 2mg Take 2 mg [facility] n (LIVALO) 5-19 by mouth ity o f 2 mg Tab 00:00: daily. Medical Branch metFORMIN 2020-0 Yes [id number] 500mg Take 1 [facility] 500 mg 5-19 tablet by ity of tablet 00:00: mouth (two) Medical times Branch daily with meals. Blood-Gluco 2020-0 Yes [id number] Use BID, Univers se Meter 5-19 DX E11.9 ity of (ACCU-CHEK 00:00: ([facility] [place] GUIDE 00 upon Medical GLUCOSE insurance Branch METER) Misc approval) ACCU-CHEK GUIDE blood sugar 2020-0 Yes [id number] Use BID, [facility] diagnostic 5-19 DX E11.9 ity o f (ACCU-CHEK 00:00: ([facility] [place] GUIDE TEST 00 upon Medical STRIPS) insurance Branch strip approval) furosemide 2020- No [id number] 40mg Take 1 [facility] 40 mg 5-19 10-20 tablet by ity of tablet 00:00: 00:00 mouth [place] 00 :00 every Medical morning Branch and evening. pantoprazol 2020- No [id number] 40mg Take 1 [facility] e 40 mg EC 5-19 10-19 tablet by ity of tablet 00:00: 00:00 mouth [place] 00 :00 daily. Medical Branch spironolact 2020- No 100mg Q.5D Take [address] [facility] one 4-06 04-06 mg [facility] (ALDACTONE) 12:49: 00:00 mouth 2 Me dical 100 MG 47 :00 (two) Center tablet times daily. penicillin 2020- No 500mg [id number] Take [address] [facility] potassium 4-06 04-06 [id number] mg [facility] (VEETID) 12:48: 00:00 3D mouth 3 Medic al 500 MG 17 :00 (three) Center tablet times daily. pitavastati 2020- No 2mg QD Take [address] [facility] n calcium 4-06 04-06 by mouth [facility] (LIVALO) 2 12:48: 00:00 daily . Med ical mg Tab 08 :00 Center tablet thiamine 2020- No 100mg QD Take [address] [facility] [address] (vitamin 4-06 04-06 mg [facility] B-1) 100 MG 12:48: 00:00 mouth Medi jeevan tablet 08 :00 daily. Center azithromyci Yes [id number] 250mg Take 1 Univers n 3-24 tablet by ity of (ZITHROMAX 00:00: mouth [place] Z-MERCY) 250 00 daily. Medical mg tablet Take 500 Branch mg day 1, then 250 mg days 2 to 5. azithromyci 2020- No [id number] 250mg Take 1 Univers n 3-24 05-19 tablet by ity of (ZITHROMAX 00:00: 00:00 mouth [place] Z-MERCY) 250 00 :00 daily. Medical mg tablet Take 500 Branch mg day 1, then 250 mg days 2 to 5. azithromyci 2020-0 2020- No [id number] 250mg Take 1 Univers n 3-24 05-19 tablet by ity of (ZITHROMAX 00:00: 00:00 mouth [place] Z-MERCY) 250 00 :00 daily. Medical mg tablet Take 500 Branch mg day 1, then 250 mg days 2 to 5. LISINOPRIL 2020-0 Yes [id number] Take 1 U nivers 20 mg 3-09 tablet by ity of tablet 00:00: mouth once [place] daily Medical Branch LISINOPRIL 2020-0 Yes [id number] Take 1 U nivers 20 mg 3-09 tablet by ity of tablet 00:00: mouth once [place] daily Medical Branch LISINOPRIL 2020-0 Yes [id number] Take 1 U nivers 20 mg 3-09 tablet by ity of tablet 00:00: mouth once [place] daily Medical Branch LISINOPRIL 2020-0 2020- No [id number] Take 1 [facility] 20 mg 3-09 05-19 tablet by ity of tablet 00:00: 00:00 mouth [place] 00 :00 daily Medical Branch LISINOPRIL 2020-0 2020- No [id number] Take 1 [facility] 20 mg 3-09 05-19 tablet by ity of tablet 00:00: 00:00 mouth [place] 00 :00 daily Medical Branch clobetasoL 2020-0 Yes [id number] Apply to Univers 0.05 % 2-09 area(s) 2 ity of cream 00:00: (two) [place] 00 times Medical daily. Branch clobetasoL 2020-0 Yes [id number] Apply to Univers 0.05 % 2-09 area(s) 2 ity of cream 00:00: (two) [place] 00 times Medical daily. Branch clobetasoL 2020-0 Yes [id number] Apply to Univers 0.05 % 2-09 area(s) 2 ity of cream 00:00: (two) [place] 00 times Medical daily. Branch clobetasoL 2020-0 Yes [id number] Apply to Univers 0.05 % 2-09 area(s) 2 ity of cream 00:00: (two) [place] 00 times Medical daily. Branch clobetasoL 2020-0 Yes [id number] Apply to Univers 0.05 % 2-09 area(s) 2 ity of cream 00:00: (two) [place] 00 times Medical daily. Branch clobetasoL 2021-0 Yes [id number] Apply to Univers 0.05 % 2-09 area(s) 2 ity of cream 00:00: (two) [place] 00 times Medical daily. Branch clobetasoL 2021-0 Yes [id number] Apply to Univers 0.05 % 2-09 area(s) 2 ity of cream 00:00: (two) [place] 00 times Medical daily. Branch clobetasoL 1-0 Yes [id number] Apply to Univers 0.05 % 2-09 area(s) 2 ity of cream 00:00: (two) [place] 00 times Medical daily. Branch clobetasoL 1-0 Yes [id number] Apply to Univers 0.05 % 2-09 area(s) 2 ity of cream 00:00: (two) [place] 00 times Medical daily. Branch clobetasoL 1-0 Yes [id number] Apply to Univers 0.05 % 2-09 area(s) 2 ity of cream 00:00: (two) [place] 00 times Medical daily. Branch clobetasoL 1-0 Yes [id number] Apply to Univers 0.05 % 2-09 area(s) 2 ity of cream 00:00: (two) [place] 00 times Medical daily. Branch clobetasoL 1-0 Yes [id number] Apply to Univers 0.05 % 2-09 area(s) 2 ity of cream 00:00: (two) [place] 00 times Medical daily. Branch clobetasoL 1-0 Yes [id number] Apply to Univers 0.05 % 2-09 area(s) 2 ity of cream 00:00: (two) [place] 00 times Medical daily. Branch clobetasoL 1-0 Yes [id number] Apply to Univers 0.05 % 2-09 area(s) 2 ity of cream 00:00: (two) [place] 00 times Medical daily. [place] azithromyci 2020- No 500mg 500 mg, IV Univers n 06-26 [place], ity of (ZITHROMAX) 03:45: 02:58 [place]CE, 1 [place] injection 00 :00 dose, Alyssa Medic al 500 mg 1/28/21 at Branch 2145, STAT
Re ason for Anti-Infec tive: Documented Infection< br>Documen lisa Infection Site: Respirator y
Durat ion of Therapy: 7 days cefTRIAXone 2020- No 1000mg 1,000 mg, Univers (ROCEPHIN) 06-26 IV ity of 1,000 mg in 03:45: 03:27 [facility]gyback, [place] NaCl 0.9% 00 :00 ONCE, 1 Medical (NS) 50 mL dose, Alyssa Bran ch MINI-BAG 06/25/20 at 2145, 50 mL
Reas on for Anti-Infec tive: Documented Infection< br>Documen lisa Infection Site: Respirator y
Durat ion of Therapy: 7 days foLIC acid Yes [id number] 1mg Take 1 Univers 1 mg tablet 1-28 tablet by ity of 00:00: mouth [place] [address] [facility] foLIC acid Yes [id number] 1mg Take 1 Univers 1 mg tablet 1-28 tablet by ity of 00:00: mouth [place] [address] [facility] foLIC acid Yes [id number] 1mg Take 1 Univers 1 mg tablet 1-28 tablet by ity of 00:00: mouth [place] [address] [facility] foLIC acid Yes [id number] 1mg Take 1 Univers 1 mg tablet 1-28 tablet by ity of 00:00: mouth [place] [address] [facility] foLIC acid Yes [id number] 1mg Take 1 Univers 1 mg tablet 1-28 tablet by ity of 00:00: mouth [place] [address] [facility] foLIC acid Yes [id number] 1mg Take 1 Univers 1 mg tablet 1-28 tablet by ity of 00:00: mouth [place] [address] [facility] foLIC acid Yes [id number] 1mg Take 1 Univers 1 mg tablet 1-28 tablet by ity of 00:00: mouth [place] [address] [facility] foLIC acid Yes [id number] 1mg Take 1 Univers 1 mg tablet 1-28 tablet by ity of 00:00: mouth [place] [address] [facility] foLIC acid Yes [id number] 1mg Take 1 Univers 1 mg tablet 1-28 tablet by ity of 00:00: mouth [place] 00 daily. Medical Branch foLIC acid 2020-0 Yes [id number] 1mg Take 1 Univers 1 mg tablet 1-28 tablet by ity of 00:00: mouth [place] 00 daily. Medical Branch foLIC acid 2020-0 Yes [id number] 1mg Take 1 Univers 1 mg tablet 1-28 tablet by ity of 00:00: mouth [place] 00 daily. Medical Branch foLIC acid 2020-0 Yes [id number] 1mg Take 1 Univers 1 mg tablet 1-28 tablet by ity of 00:00: mouth [place] 00 daily. Medical Branch foLIC acid 2020-0 Yes [id number] 1mg Take 1 Univers 1 mg tablet 1-28 tablet by ity of 00:00: mouth [place] 00 daily. Medical Branch foLIC acid 2020-0 Yes [id number] 1mg Take 1 [facility] 1 mg tablet 1-28 tablet by ity of 00:00: mouth [place] 00 daily. Medical Branch foLIC acid 2020-0 Yes [id number] 1mg Take 1 [facility] 1 mg tablet 1-28 tablet by ity of 00:00: mouth [place] 00 daily. Medical Branch amoxicillin 2020-0 202- No [id number] 500mg Take 1 Univers -pot 1-28 02-05 [...] 2 (two) times daily. furosemide 2018-05 Yes [id number] 40mg Take 1 U nivers 40 mg 2-20 tablet by ity of tablet 00:00: mouth [place] 00 every Medical morning Branch and evening. metFORMIN 2018-05 Yes [id number] 500mg Take 1 [facility] 500 mg 2-20 tablet by ity of tablet 00:00: mouth 2 [place] 00 (two) Medical times Branch daily with meals. carvedilol 2018-05 Yes [id number] 3.125mg Take 1 [facility] 3.125 mg 2-20 tablet by ity of tablet 00:00: mouth 2 [place] 00 (two) Medical times Branch daily with meals. lisinopril 2018-05 Yes [id number] 20mg Take 1 U nivers 20 mg 2-20 tablet by ity of tablet 00:00: mouth [place] 00 daily. Medical Branch spironolact 2018-05 Yes [id number] 25mg Take 1 [facility] one 25 mg 2-20 tablet by ity o f tablet 00:00: mouth 2 00 (two) Medical times Branch daily. rifAXIMin 2018- Yes [id number] 550mg Take 1 [facility] 550 mg 2-20 tablet by ity of tablet 00:00: mouth 2 (two) Medical times Branch daily. albuterol 2018-05 Yes [id number] 2{puff} Inhale 2 Univers 90 2-20 Puffs ity of mcg/actuati 00:00: every 6 [place] on inhaler 00 (six) Medical hours as Branch needed for Wheezing or Shortness of Breath. Pitavastati 2018-05 Yes [id number] 2mg Take 2 mg Univers n (LIVALO) 2-20 by mouth ity o f 2 mg Tab 00:00: daily. Medical Branch Lancets 2018-05 Yes [id number] Use BID, U nivers Misc 2-20 DX E11.9 ity of 00:00: ([facility] 00 upon Medical insurance Branch approval) blood sugar 2018-05 Yes [id number] Use BID, Univers diagnostic 2-20 DX E11.9 ity o f (ACCU-CHEK 00:00: ([facility] GUIDE) [address] [place] [address] Medical strip insurance Branch approval) lactulose 2018-05 Yes [id number] 15mL Take 15 mL Univers 10 gram/15 2-20 by mouth 3 ity of mL solution 00:00: (three) [place] 00 times Medical daily. Branch hydrOXYzine 2018-05 Yes [id number] 50mg Take 1 U nivers 50 mg 2-20 tablet by ity of tablet 00:00: mouth 3 00 (three) Medical times Branch daily as needed for Itching. calcipotrie 2018-05 Yes [id number] Apply to Univers ne 0.005 % 2-20 area(s) 2 ity of cream 00:00: (two) [place] 00 times Medical daily. Branch clobetasol 2018-05 Yes [id number] Apply to Univers 0.05 % 2-20 area(s) 2 ity of cream 00:00: (two) [place] 00 times Medical daily. Branch foLIC acid 2018-05 Yes [id number] 1mg Take 1 [facility] 1 mg tablet 2-20 tablet by ity of 00:00: mouth daily. Medical Branch pantoprazol 2018-05 Yes [id number] 40mg Take 1 [facility] e 40 mg EC 2-20 tablet by ity of tablet 00:00: mouth [place] daily. Medical Branch triamcinolo 2018-05 Yes [id number] Apply to Univers ne 2-20 affected ity of acetonide 00:00: area(s) 2 [place] 0.1 % cream 00 (two) Medical times Branch daily. furosemide 2018-05 Yes [id number] 40mg Take 1 U nivers 40 mg 2-20 tablet by ity of tablet 00:00: mouth 00 every Medical morning Branch and evening. metFORMIN 2018-05 Yes [id number] 500mg Take 1 [facility] 500 mg 2-20 tablet by ity of tablet 00:00: mouth (two) Medical times Branch daily with meals. carvedilol 2018-05 Yes [id number] 3.125mg Take 1 [facility] 3.125 mg 2-20 tablet by ity of tablet 00:00: mouth (two) Medical times Branch daily with meals. lisinopril 2018-05 Yes [id number] 20mg Take 1 U nivers 20 mg 2-20 tablet by ity of tablet 00:00: mouth daily. Medical Branch spironolact 2018-05 Yes [id number] 25mg Take 1 [facility] one 25 mg 2-20 tablet by ity o f tablet 00:00: mouth (two) Medical times Branch daily. rifAXIMin 2018-05 Yes [id number] 550mg Take 1 [facility] 550 mg 2-20 tablet by ity of tablet 00:00: mouth (two) Medical times Branch daily. albuterol 2018-05 Yes [id number] 2{puff} Inhale 2 Univers 90 2-20 Puffs ity of mcg/actuati 00:00: every 6 [place] on inhaler 00 (six) Medical hours as Branch needed for Wheezing or Shortness of Breath. Pitavastati 2018-05 Yes [id number] 2mg Take 2 mg Univers n (LIVALO) 2-20 by mouth ity o f 2 mg Tab 00:00: daily. Medical Branch Lancets 2018-05 Yes [id number] Use BID, U nivers Misc 2-20 DX E11.9 ity of 00:00: ([facility] 00 upon Medical insurance Branch approval) blood sugar 2018-05 Yes [id number] Use BID, Univers diagnostic 2-20 DX E11.9 ity o f (ACCU-CHEK 00:00: ([facility] GUIDE) 00 upon Medical strip insurance Branch approval) lactulose 2018-05 Yes [id number] 15mL Take 15 mL Univers 10 gram/15 2-20 by mouth 3 ity of mL solution 00:00: (three) [place] 00 times Medical daily. Branch hydrOXYzine 2018-05 Yes [id number] 50mg Take 1 U nivers 50 mg 2-20 tablet by ity of tablet 00:00: mouth 3 [place] 00 (three) Medical times Branch daily as needed for Itching. calcipotrie 2018-05 Yes [id number] Apply to Univers ne 0.005 % 2-20 area(s) 2 ity of cream 00:00: (two) [place] 00 times Medical daily. Branch clobetasol 2018-05 Yes [id number] Apply to Univers 0.05 % 2-20 area(s) 2 ity of cream 00:00: (two) [place] 00 times Medical daily. Branch foLIC acid 2018-05 Yes [id number] 1mg Take 1 [facility] 1 mg tablet 2-20 tablet by ity of 00:00: mouth [place] 00 daily. Medical Branch pantoprazol 2018-05 Yes [id number] 40mg Take 1 [facility] e 40 mg EC 2-20 tablet by ity of tablet 00:00: mouth [place] 00 daily. Medical Branch triamcinolo 2018-05 Yes [id number] Apply to Univers ne 2-20 affected ity of acetonide 00:00: area(s) 2 [place] 0.1 % cream 00 (two) Medical times Branch daily. furosemide 2018-05 Yes [id number] 40mg Take 1 U nivers 40 mg 2-20 tablet by ity of tablet 00:00: mouth [place] 00 every Medical morning Branch and evening. metFORMIN 2018-05 Yes [id number] 500mg Take 1 [facility] 500 mg 2-20 tablet by ity of tablet 00:00: mouth 2 [place] 00 (two) Medical times Branch daily with meals. carvedilol 2018-05 Yes [id number] 3.125mg Take 1 [facility] 3.125 mg 2-20 tablet by ity of tablet 00:00: mouth 2 [place] 00 (two) Medical times Branch daily with meals. lisinopril 2018-05 Yes [id number] 20mg Take 1 U nivers 20 mg 2-20 tablet by ity of tablet 00:00: mouth [place] 00 daily. Medical Branch spironolact 2018-05 Yes [id number] 25mg Take 1 [facility] one 25 mg 2-20 tablet by ity o f tablet 00:00: mouth 2 (two) Medical times Branch daily. rifAXIMin 2018-05 Yes [id number] 550mg Take 1 [facility] 550 mg 2-20 tablet by ity of tablet 00:00: mouth 2 00 (two) Medical times Branch daily. albuterol 2018-05 Yes [id number] 2{puff} Inhale 2 [facility] 90 2-20 Puffs ity of mcg/actuati 00:00: every 6 [place] on inhaler 00 (six) Medical hours as Branch needed for Wheezing or Shortness of Breath. Pitavastati 2018-05 Yes [id number] 2mg Take 2 mg Univers n (LIVALO) 2-20 by mouth ity o f 2 mg Tab 00:00: daily. Medical Branch Lancets 2018-05 Yes [id number] Use BID, U nivers Misc 2-20 DX E11.9 ity of 00:00: ([facility] 00 upon Medical insurance Branch approval) blood sugar 2018-05 Yes [id number] Use BID, Univers diagnostic 2-20 DX E11.9 ity o f (ACCU-CHEK 00:00: ([facility] GUIDE) 00 upon Medical strip insurance Branch approval) lactulose 2018-05 Yes [id number] 15mL Take 15 mL [facility] 10 gram/15 2-20 by mouth 3 ity of mL solution 00:00: (three) [place] 00 times Medical daily. Branch hydrOXYzine 2018-05 Yes [id number] 50mg Take 1 U nivers 50 mg 2-20 tablet by ity of tablet 00:00: mouth 3 00 (three) Medical times Branch daily as needed for Itching. calcipotrie 2018-05 Yes [id number] Apply to Univers ne 0.005 % 2-20 area(s) 2 ity of cream 00:00: (two) [place] 00 times Medical daily. Branch clobetasol 2018-05 Yes [id number] Apply to Univers 0.05 % 2-20 area(s) 2 ity of cream 00:00: (two) [place] 00 times Medical daily. Branch pantoprazol 2018-05 Yes [id number] 40mg Take 1 [facility] e 40 mg EC 2-20 tablet by ity of tablet 00:00: mouth [place] daily. Medical Branch triamcinolo 2018-05 Yes [id number] Apply to Univers ne 2-20 affected ity of acetonide 00:00: area(s) 2 [place] 0.1 % cream (two) Medical times Branch daily. furosemide 2018-05 Yes [id number] 40mg Take 1 U nivers 40 mg 2-20 tablet by ity of tablet 00:00: mouth 00 every Medical morning Branch and evening. metFORMIN 2018-05 Yes [id number] 500mg Take 1 [facility] 500 mg 2-20 tablet by ity of tablet 00:00: mouth (two) Medical times Branch daily with meals. carvedilol 2018-05 Yes [id number] 3.125mg Take 1 [facility] 3.125 mg 2-20 tablet by ity of tablet 00:00: mouth (two) Medical times Branch daily with meals. lisinopril 2018-05 Yes [id number] 20mg Take 1 [facility] n[facility] 20 mg 2-20 tablet by ity of tablet 00:00: mouth daily. Medical Branch spironolact 2018-05 Yes [id number] 25mg Take 1 [facility] one 25 mg 2-20 tablet by ity o f tablet 00:00: mouth (two) Medical times Branch daily. rifAXIMin 2018-05 Yes [id number] 550mg Take 1 [facility] 550 mg 2-20 tablet by ity of tablet 00:00: mouth (two) Medical times Branch daily. albuterol 2018-05 Yes [id number] 2{puff} Inhale 2 [facility] 90 2-20 Puffs ity of mcg/actuati 00:00: every 6 [place] on inhaler 00 (six) Medical hours as Branch needed for Wheezing or Shortness of Breath. Pitavastati 2018-05 Yes [id number] 2mg Take 2 mg [facility] n (LIVALO) 2-20 by mouth ity o f 2 mg Tab 00:00: daily. Medical Branch Lancets 2018-05 Yes [id number] Use BID, [facility] nivers Misc 2-20 DX E11.9 ity of 00:00: (Brand [place] 00 upon Medical insurance Branch approval) blood sugar 2018-05 Yes [id number] Use BID, [facility] diagnostic 2-20 DX E11.9 ity o f (ACCU-CHEK 00:00: (Brand [place] GUIDE) 00 upon Medical strip insurance Branch approval) lactulose 2018-05 Yes [id number] 15mL Take 15 mL [facility] 10 gram/15 2-20 by mouth 3 ity of mL solution 00:00: (three) [place] 00 times Medical daily. Branch hydrOXYzine 2018-05 Yes [id number] 50mg Take 1 [facility] nivers 50 mg 2-20 tablet by ity of tablet 00:00: mouth 3 [place] 00 (three) Medical times Branch daily as needed for Itching. calcipotrie 2018-05 Yes [id number] Apply to [facility] ne 0.005 % 2-20 area(s) 2 ity of cream 00:00: (two) [place] 00 times Medical daily. Branch clobetasol 2018-05 Yes [id number] Apply to [facility] 0.05 % 2-20 area(s) 2 ity of cream 00:00: (two) [place] 00 times Medical daily. Branch pantoprazol 2018-05 Yes [id number] 40mg Take 1 [facility] e 40 mg EC 2-20 tablet by ity of tablet 00:00: mouth [place] 00 daily. Medical Branch triamcinolo 2018-05 Yes [id number] Apply to [facility] ne 2-20 affected ity of acetonide 00:00: area(s) 2 [place] 0.1 % cream 00 (two) Medical times Branch daily. albuterol 2018-05 Yes [id number] 2{puff} Inhale 2 [facility] 90 2-20 Puffs ity of mcg/actuati 00:00: every 6 [place] on inhaler 00 (six) Medical hours as Branch needed for Wheezing or Shortness of Breath. Lancets 2018-05 Yes [id number] Use BID, [facility] nivers Misc 2-20 DX E11.9 ity of 00:00: (Brand [place] 00 upon Medical insurance Branch approval) lactulose 2018-05 Yes [id number] 15mL Take 15 mL [facility] 10 gram/15 2-20 by mouth 3 ity of mL solution 00:00: (three) [place] 00 times Medical daily. Branch calcipotrie 2018-05 Yes [id number] Apply to [facility] ne 0.005 % 2-20 area(s) 2 ity of cream 00:00: (two) [place] 00 times Medical daily. Branch triamcinolo 2018-05 Yes [id number] Apply to [facility] ne 2-20 affected ity of acetonide 00:00: area(s) 2 [place] 0.1 % cream 00 (two) Medical times Branch daily. furosemide 2018-05 Yes [id number] 40mg Take 1 [facility] n[facility] 40 mg 2-20 tablet by ity of tablet 00:00: mouth 00 every Medical morning Branch and evening. metFORMIN 2018-05 Yes [id number] 500mg Take 1 [facility] 500 mg 2-20 tablet by ity of tablet 00:00: mouth 2 (two) Medical times Branch daily with meals. carvedilol 2018-05 Yes [id number] 3.125mg Take 1 [facility] 3.125 mg 2-20 tablet by ity of tablet 00:00: mouth 2 (two) Medical times Branch daily with meals. spironolact 2018-05 Yes [id number] 25mg Take 1 [facility] one 25 mg 2-20 tablet by ity o f tablet 00:00: mouth 2 [place] (two) Medical times Branch daily. rifAXIMin 2018-05 Yes [id number] 550mg Take 1 [facility] 550 mg 2-20 tablet by ity of tablet 00:00: mouth 2 [place] (two) Medical times Branch daily. albuterol 2018-05 Yes [id number] 2{puff} Inhale 2 [facility] 90 2-20 Puffs ity of mcg/actuati 00:00: every 6 [place] on inhaler 00 (six) Medical hours as Branch needed for Wheezing or Shortness of Breath. Pitavastati 2018-05 Yes [id number] 2mg Take 2 mg [facility] n (LIVALO) 2-20 by mouth ity o f 2 mg Tab 00:00: daily. [place] 00 Medical Branch Lancets 2018-05 Yes [id number] Use BID, U nivers Misc 2-20 DX E11.9 ity of 00:00: (Brand [place] 00 upon Medical insurance Branch approval) blood sugar 2018-05 Yes [id number] Use BID, [facility] diagnostic 2-20 DX E11.9 ity o f (ACCU-CHEK 00:00: ([facility] GUIDE) [address] [place] [address] Medical strip insurance Branch approval) lactulose 2018-05 Yes [id number] 15mL Take 15 mL [facility] 10 gram/15 2-20 by mouth 3 ity of mL solution 00:00: (three) [place] 00 times Medical daily. Branch hydrOXYzine 2018-05 Yes [id number] 50mg Take 1 U nivers 50 mg 2-20 tablet by ity of tablet 00:00: mouth 3 (three) Medical times Branch daily as needed for Itching. calcipotrie 2018-05 Yes [id number] Apply to [facility] ne 0.005 % 2-20 area(s) 2 ity of cream 00:00: (two) 00 times Medical daily. Branch pantoprazol 2018-05 Yes [id number] 40mg Take 1 [facility] e 40 mg EC 2-20 tablet by ity of tablet 00:00: mouth [place] 00 daily. Medical Branch triamcinolo 2018-05 Yes [id number] Apply to [facility] ne 2-20 affected ity of acetonide 00:00: area(s) 2 [place] 0.1 % cream 00 (two) Medical times Branch daily. furosemide 2018-05 Yes [id number] 40mg Take 1 U nivers 40 mg 2-20 tablet by ity of tablet 00:00: mouth 00 every Medical morning Branch and evening. metFORMIN 2018-05 Yes [id number] 500mg Take 1 [facility] 500 mg 2-20 tablet by ity of tablet 00:00: mouth 2 (two) Medical times Branch daily with meals. carvedilol 2018-05 Yes [id number] 3.125mg Take 1 [facility] 3.125 mg 2-20 tablet by ity of tablet 00:00: mouth 2 (two) Medical times Branch daily with meals. spironolact 2018-05 Yes [id number] 25mg Take 1 [facility] one 25 mg 2-20 tablet by ity o f tablet 00:00: mouth 2 [place] (two) Medical times Branch daily. rifAXIMin 2018-05 Yes [id number] 550mg Take 1 [facility] 550 mg 2-20 tablet by ity of tablet 00:00: mouth 2 [place] (two) Medical times Branch daily. albuterol 2018-05 Yes [id number] 2{puff} Inhale 2 [facility] 90 2-20 Puffs ity of mcg/actuati 00:00: every 6 [place] on inhaler 00 (six) Medical hours as Branch needed for Wheezing or Shortness of Breath. Pitavastati 2018-05 Yes [id number] 2mg Take 2 mg [facility] n (LIVALO) 2-20 by mouth ity o f 2 mg Tab 00:00: daily. [place] Medical Branch Lancets 2018-05 Yes [id number] Use BID, U nivers Misc 2-20 DX E11.9 ity of 00:00: (Brand [place] 00 upon Medical insurance Branch approval) blood sugar 2018-05 Yes [id number] Use BID, [facility] diagnostic 2-20 DX E11.9 ity o f (ACCU-CHEK 00:00: ([facility] GUIDE) 00 upon Medical strip insurance Branch approval) lactulose 2018-05 Yes [id number] 15mL Take 15 mL [facility] 10 gram/15 2-20 by mouth 3 ity of mL solution 00:00: (three) [place] 00 times Medical daily. Branch hydrOXYzine 2018-05 Yes [id number] 50mg Take 1 U nivers 50 mg 2-20 tablet by ity of tablet 00:00: mouth 3 00 (three) Medical times Branch daily as needed for Itching. calcipotrie 2018-05 Yes [id number] Apply to [facility] ne 0.005 % 2-20 area(s) 2 ity of cream 00:00: (two) [place] 00 times Medical daily. Branch pantoprazol 2018-05 Yes [id number] 40mg Take 1 [facility] e 40 mg EC 2-20 tablet by ity of tablet 00:00: mouth 00 daily. Medical Branch triamcinolo 2018-05 Yes [id number] Apply to [facility] ne 2-20 affected ity of acetonide 00:00: area(s) 2 [place] 0.1 % cream 00 (two) Medical times Branch daily. furosemide 2018-05 Yes [id number] 40mg Take 1 U nivers 40 mg 2-20 tablet by ity of tablet 00:00: mouth 00 every Medical morning Branch and evening. metFORMIN 2018-05 Yes [id number] 500mg Take 1 [facility] 500 mg 2-20 tablet by ity of tablet 00:00: mouth 2 (two) Medical times Branch daily with meals. carvedilol 2018-05 Yes [id number] 3.125mg Take 1 [facility] 3.125 mg 2-20 tablet by ity of tablet 00:00: mouth 2 (two) Medical times Branch daily with meals. spironolact 2018-05 Yes [id number] 25mg Take 1 [facility] one 25 mg 2-20 tablet by ity o f tablet 00:00: mouth 2 (two) Medical times Branch daily. rifAXIMin 2018-05 Yes [id number] 550mg Take 1 [facility] 550 mg 2-20 tablet by ity of tablet 00:00: mouth 2 [place] 00 (two) Medical times Branch daily. albuterol 2018-05 Yes [id number] 2{puff} Inhale 2 [facility] 90 2-20 Puffs ity of mcg/actuati 00:00: every 6 [place] on inhaler 00 (six) Medical hours as Branch needed for Wheezing or Shortness of Breath. Pitavastati 2018-05 Yes [id number] 2mg Take 2 mg [facility] n (LIVALO) 2-20 by mouth ity o f 2 mg Tab 00:00: daily. [place] Medical Branch Lancets 2018-05 Yes [id number] Use BID, U nivers Misc 2-20 DX E11.9 ity of 00:00: ([facility] 00 upon Medical insurance Branch approval) blood sugar 2018-05 Yes [id number] Use BID, [facility] diagnostic 2-20 DX E11.9 ity o f (ACCU-CHEK 00:00: ([facility] GUIDE) [address] [place] [address] Medical strip insurance Branch approval) lactulose 2018-05 Yes [id number] 15mL Take 15 mL [facility] 10 gram/15 2-20 by mouth 3 ity of mL solution 00:00: (three) [place] 00 times Medical daily. Branch hydrOXYzine 2018-05 Yes [id number] 50mg Take 1 U nivers 50 mg 2-20 tablet by ity of tablet 00:00: mouth 3 [place] 00 (three) Medical times Branch daily as needed for Itching. calcipotrie 2018-05 Yes [id number] Apply to [facility] ne 0.005 % 2-20 area(s) 2 ity of cream 00:00: (two) [place] 00 times Medical daily. Branch pantoprazol 2018-05 Yes [id number] 40mg Take 1 [facility] e 40 mg EC 2-20 tablet by ity of tablet 00:00: mouth [place] daily. Medical Branch triamcinolo 2018-05 Yes [id number] Apply to [facility] ne 2-20 affected ity of acetonide 00:00: area(s) 2 [place] 0.1 % cream 00 (two) Medical times Branch daily. albuterol 2018-05 Yes [id number] 2{puff} Inhale 2 [facility] 90 2-20 Puffs ity of mcg/actuati 00:00: every 6 [place] on inhaler 00 (six) Medical hours as Branch needed for Wheezing or Shortness of Breath. Lancets 2018-05 Yes [id number] Use BID, U nivers Misc 2-20 DX E11.9 ity of 00:00: (Brand [address] Medical insurance Branch approval) lactulose 2018-05 Yes [id number] 15mL Take 15 mL [facility] 10 gram/15 2-20 by mouth 3 ity of mL solution 00:00: (three) [place] 00 times Medical daily. Branch calcipotrie 2018-05 Yes [id number] Apply to [facility] ne 0.005 % 2-20 area(s) 2 ity of cream 00:00: (two) [place] 00 times Medical daily. Branch triamcinolo 2018-05 Yes [id number] Apply to [facility] ne 2-20 affected ity of acetonide 00:00: area(s) 2 [place] 0.1 % cream 00 (two) Medical times Branch daily. albuterol 2018-05 Yes [id number] 2{puff} Inhale 2 [facility] 90 2-20 Puffs ity of mcg/actuati 00:00: every 6 [place] on inhaler 00 (six) Medical hours as Branch needed for Wheezing or Shortness of Breath. Lancets 2019- Yes [id number] Use BID, U nivers Misc 2-20 DX E11.9 ity of 00:00: (Brand [address] Medical insurance Branch approval) lactulose 2018-05 Yes [id number] 15mL Take 15 mL [facility] 10 gram/15 2-20 by mouth 3 ity of mL solution 00:00: (three) [place] 00 times Medical daily. Branch calcipotrie 2018-05 Yes [id number] Apply to [facility] ne 0.005 % 2-20 area(s) 2 ity of cream 00:00: (two) [place] 00 times Medical daily. Branch triamcinolo 2018-05 Yes [id number] Apply to [facility] ne 2-20 affected ity of acetonide 00:00: area(s) 2 [place] 0.1 % cream 00 (two) Medical times Branch daily. albuterol 2018-05 Yes [id number] 2{puff} Inhale 2 [facility] 90 2-20 Puffs ity of mcg/actuati 00:00: every 6 [place] on inhaler 00 (six) Medical hours as Branch needed for Wheezing or Shortness of Breath. Lancets 2018-05 Yes [id number] Use BID, U nivers Misc 2-20 DX E11.9 ity of 00:00: (Brand [address] Branch approval) lactulose 2018-05 Yes [id number] 15mL Take 15 mL [facility] 10 gram/15 2-20 by mouth 3 ity of mL solution 00:00: (three) [place] 00 times Medical daily. Branch calcipotrie 2018-05 Yes [id number] Apply to [facility] ne 0.005 % 2-20 area(s) 2 ity of cream 00:00: (two) [place] 00 times Medical daily. Branch triamcinolo 2018-05 Yes [id number] Apply to [facility] ne 2-20 affected ity of acetonide 00:00: area(s) 2 [place] 0.1 % cream 00 (two) Medical times Branch daily. albuterol 2018-05 Yes [id number] 2{puff} Inhale 2 [facility] 90 2-20 Puffs ity of mcg/actuati 00:00: every 6 [place] on inhaler 00 (six) Medical hours as Branch needed for Wheezing or Shortness of Breath. Lancets 2018-05 Yes [id number] Use BID, U nivers Misc 2-20 DX E11.9 ity of 00:00: (Brand [address] Branch approval) lactulose 2018-05 Yes [id number] 15mL Take 15 mL [facility] 10 gram/15 2-20 by mouth 3 ity of mL solution 00:00: (three) [place] 00 times Medical daily. Branch calcipotrie 2018-05 Yes [id number] Apply to [facility] ne 0.005 % 2-20 area(s) 2 ity of cream 00:00: (two) [place] 00 times Medical daily. Branch triamcinolo 2018-05 Yes [id number] Apply to [facility] ne 2-20 affected ity of acetonide 00:00: area(s) 2 [place] 0.1 % cream 00 (two) Medical times Branch daily. albuterol 2018-05 Yes [id number] 2{puff} Inhale 2 [facility] 90 2-20 Puffs ity of mcg/actuati 00:00: every 6 [place] on inhaler 00 (six) Medical hours as Branch needed for Wheezing or Shortness of Breath. Lancets 2018-05 Yes [id number] Use BID, U nivers Misc 2-20 DX E11.9 ity of 00:00: (Brand [address] Branch approval) lactulose 2018-05 Yes [id number] 15mL Take 15 mL [facility] 10 gram/15 2-20 by mouth 3 ity of mL solution 00:00: (three) [place] 00 times Medical daily. Branch calcipotrie 2018-05 Yes [id number] Apply to [facility] ne 0.005 % 2-20 area(s) 2 ity of cream 00:00: (two) [place] 00 times Medical daily. Branch triamcinolo 2018-05 Yes [id number] Apply to [facility] ne 2-20 affected ity of acetonide 00:00: area(s) 2 [place] 0.1 % cream 00 (two) Medical times Branch daily. albuterol 2018-05 Yes [id number] 2{puff} Inhale 2 [facility] 90 2-20 Puffs ity of mcg/actuati 00:00: every 6 [place] on inhaler 00 (six) Medical hours as Branch needed for Wheezing or Shortness of Breath. Lancets 2018-05 Yes [id number] Use BID, U nivers Misc 2-20 DX E11.9 ity of 00:00: (Brand [address] Branch approval) lactulose 2018-05 Yes [id number] 15mL Take 15 mL [facility] 10 gram/15 2-20 by mouth 3 ity of mL solution 00:00: (three) [place] 00 times Medical daily. Branch calcipotrie 2018-05 Yes [id number] Apply to [facility] ne 0.005 % 2-20 area(s) 2 ity of cream 00:00: (two) [place] 00 times Medical daily. Branch triamcinolo 2018-05 Yes [id number] Apply to [facility] ne 2-20 affected ity of acetonide 00:00: area(s) 2 [place] 0.1 % cream 00 (two) Medical times Branch daily. albuterol 2018-05 Yes [id number] 2{puff} Inhale 2 [facility] 90 2-20 Puffs ity of mcg/actuati 00:00: every 6 [place] on inhaler 00 (six) Medical hours as Branch needed for Wheezing or Shortness of Breath. Lancets 2018-05 Yes [id number] Use BID, U nivers Misc 2-20 DX E11.9 ity of 00:00: (Brand [address] Medical [facility] Branch approval) lactulose 2018-05 Yes [id number] 15mL Take 15 mL [facility] 10 gram/15 2-20 by mouth 3 ity of mL solution 00:00: (three) [place] 00 times Medical daily. Branch calcipotrie 2018-05 Yes [id number] Apply to [facility] ne 0.005 % 2-20 area(s) 2 ity of cream 00:00: (two) [place] 00 times Medical daily. Branch triamcinolo 2018-05 Yes [id number] Apply to [facility] ne 2-20 affected ity of acetonide 00:00: area(s) 2 [place] 0.1 % cream 00 (two) Medical times Branch daily. albuterol 2018-05 Yes [id number] 2{puff} Inhale 2 [facility] 90 2-20 Puffs ity of mcg/actuati 00:00: every 6 [place] on inhaler 00 (six) Medical hours as Branch needed for Wheezing or Shortness of Breath. Lancets 2018-05 Yes [id number] Use BID, U nivers Misc 2-20 DX E11.9 ity of 00:00: (Brand [address] Branch approval) lactulose 2018-05 Yes [id number] 15mL Take 15 mL [facility] 10 gram/15 2-20 by mouth 3 ity of mL solution 00:00: (three) [place] 00 times Medical daily. Branch calcipotrie 2018-05 Yes [id number] Apply to [facility] ne 0.005 % 2-20 area(s) 2 ity of cream 00:00: (two) [place] 00 times Medical daily. Branch triamcinolo 2018-05 Yes [id number] Apply to [facility] ne 2-20 affected ity of acetonide 00:00: area(s) 2 [place] 0.1 % cream 00 (two) Medical times Branch daily. albuterol 2018-05 Yes [id number] 2{puff} Inhale 2 [facility] 90 2-20 Puffs ity of mcg/actuati 00:00: every 6 [place] on inhaler 00 (six) Medical hours as Branch needed for Wheezing or Shortness of Breath. Lancets 2018-05 Yes [id number] Use BID, U nivers Misc 2-20 DX E11.9 ity of 00:00: (Brand [address] Branch approval) lactulose 2018-05 Yes [id number] 15mL Take 15 mL [facility] 10 gram/15 2-20 by mouth 3 ity of mL solution 00:00: (three) [place] 00 times Medical daily. Branch calcipotrie 2018-05 Yes [id number] Apply to [facility] ne 0.005 % 2-20 area(s) 2 ity of cream 00:00: (two) [place] 00 times Medical daily. Branch triamcinolo 2018-05 Yes [id number] Apply to [facility] ne 2-20 affected ity of acetonide 00:00: area(s) 2 [place] 0.1 % cream 00 (two) Medical times Branch daily. albuterol 2018-05 Yes [id number] 2{puff} Inhale 2 [facility] 90 2-20 Puffs ity of mcg/actuati 00:00: every 6 [place] on inhaler 00 (six) Medical hours as Branch needed for Wheezing or Shortness of Breath. Lancets 2018-05 Yes [id number] Use BID, U nivers Misc 2-20 DX E11.9 ity of 00:00: (Brand [address] Branch approval) lactulose 2018-05 Yes [id number] 15mL Take 15 mL [facility] 10 gram/15 2-20 by mouth 3 ity of mL solution 00:00: (three) [place] 00 times Medical daily. Branch calcipotrie 2018-05 Yes [id number] Apply to [facility] ne 0.005 % 2-20 area(s) 2 ity of cream 00:00: (two) [place] 00 times Medical daily. Branch triamcinolo 2018-05 Yes [id number] Apply to [facility] ne 2-20 affected ity of acetonide 00:00: area(s) 2 [place] 0.1 % cream 00 (two) Medical times Branch daily. furosemide 2018-05- No [id number] 40mg Take 1 [facility] 40 mg 2-20 05-19 tablet by ity of tablet 00:00: 00:00 mouth [place] 00 :00 every Medical morning Branch and evening. metFORMIN 2018-05- No [id number] 500mg Take 1 [facility] 500 mg 2-20 05-19 tablet by ity of tablet 00:00: 00:00 mouth 2 [place] 00 :00 (two) Medical times Branch daily with meals. carvedilol 2018-05- No [id number] 3.125mg Take 1 [facility] 3.125 mg 2-20 05-19 tablet by ity o f tablet 00:00: 00:00 mouth 2 [place] 00 :00 (two) Medical times Branch daily with meals. spironolact 2018-05- No [id number] 25mg Take 1 [facility] one 25 mg 2-20 05-19 tablet by ity of tablet 00:00: 00:00 mouth 2 [place] 00 :00 (two) Medical times Branch daily. rifAXIMin 2018-05- No [id number] 550mg Take 1 [facility] 550 mg 2-20 05-19 tablet by ity of tablet 00:00: 00:00 mouth 2 [place] 00 :00 (two) Medical times Branch daily. Pitavastati 2018-05- No [id number] 2mg Take 2 mg [facility] n (LIVALO) 2-20 05-19 by mouth ity of 2 mg Tab 00:00: 00:00 daily. [place] 00 :00 Medical Branch blood sugar 2018-05- No [id number] Use BID, [facility] diagnostic 2-20 05-19 DX E11.9 ity of (ACCU-CHEK 00:00: 00:00 (Brand [place] GUIDE[place] 00 :00 upon Medical strip insurance Branch approval) hydrOXYzine 2018-05- No [id number] 50mg Take 1 [facility] 50 mg 2-20 05-19 tablet by ity of tablet 00:00: 00:00 mouth 3 [place] 00 :00 (three) Medical times Branch daily as needed for Itching. pantoprazol 2018-05- No [id number] 40mg Take 1 [facility] e 40 mg EC 2-20 05-19 tablet by ity of tablet 00:00: 00:00 mouth [place] 00 :00 daily. Medical Branch furosemide 2018-05- No [id number] 40mg Take 1 [facility] 40 mg 2-20 05-19 tablet by ity of tablet 00:00: 00:00 mouth [place] 00 :00 every Medical morning Branch and evening. metFORMIN 2018-05- No [id number] 500mg Take 1 [facility] 500 mg 2-20 05-19 tablet by ity of tablet 00:00: 00:00 mouth 2 [place] 00 :00 (two) Medical times Branch daily with meals. carvedilol 2018-05- No [id number] 3.125mg Take 1 [facility] 3.125 mg 2-20 05-19 tablet by ity o f tablet 00:00: 00:00 mouth 2 [place] 00 :00 (two) Medical times Branch daily with meals. spironolact 2018-05- No [id number] 25mg Take 1 [facility] one 25 mg 2-20 -19 tablet by ity of tablet 00:00: 00:00 mouth 2 [place] 00 :00 (two) Medical times Branch daily. rifAXIMin 2018-05- No [id number] 550mg Take 1 [facility] 550 mg 2-20 -19 tablet by ity of tablet 00:00: 00:00 mouth 2 [place] 00 :00 (two) Medical times Branch daily. Pitavastati 2018-05- No [id number] 2mg Take 2 mg [facility] n (LIVALO) 2-20 -19 by mouth ity of 2 mg Tab 00:00: 00:00 daily. [place] 00 :00 Medical Branch blood sugar 2018-05- No [id number] Use BID, [facility] diagnostic 2-20 05-19 DX E11.9 ity of (ACCU-CHEK 00:00: 00:00 (Brand [place]) 00 :00 upon Medical strip insurance Branch approval) hydrOXYzine 2018-05- No [id number] 50mg Take 1 [facility] 50 mg 2-20 -19 tablet by ity of tablet 00:00: 00:00 mouth 3 [place] 00 :00 (three) Medical times Branch daily as needed for Itching. pantoprazol 2018-05- No [id number] 40mg Take 1 [facility] e 40 mg EC 2-20 -19 tablet by ity of tablet 00:00: 00:00 mouth [place] 00 :00 daily. Medical Branch lisinopril 2018-05- No [id number] 20mg Take 1 [facility] 20 mg 2-20 - tablet by ity of tablet 00:00: 00:00 mouth [place] 00 :00 daily. Medical Branch foLIC acid 2018-05- No [id number] 1mg Take 1 [facility] 1 mg tablet -06-25 tablet by it y of 00:00: 00:00 mouth [place] 00 :00 daily. Medical Branch foLIC acid 2018-05- No [id number] 1mg Take 1 [facility] 1 mg tablet 07-18 tablet by it y of 00:00: 00:00 mouth [place] 00 :00 daily. Medical Branch doxycycline 2019-0 Yes [id number] 100mg Take 1 [facility] 100 mg 8-29 tablet by ity of tablet 00:00: mouth (two) Medical times Branch daily. doxycycline 2019-0 Yes [id number] 100mg Take 1 [facility] 100 mg 8-29 tablet by ity of tablet 00:00: mouth (two) Medical times Branch daily. doxycycline 2019-0 Yes [id number] 100mg Take 1 [facility] 100 mg 8-29 tablet by ity of tablet 00:00: mouth (two) Medical times Branch daily. doxycycline 2019-0 Yes [id number] 100mg Take 1 [facility] 100 mg 8-29 tablet by ity of tablet 00:00: mouth [place] (two) Medical times Branch daily. doxycycline 2019-0 Yes [id number] 100mg Take 1 [facility] 100 mg 8-29 tablet by ity of tablet 00:00: mouth (two) Medical times Branch daily. doxycycline 2019-0 Yes [id number] 100mg Take 1 [facility] 100 mg 8-29 tablet by ity of tablet 00:00: mouth [address] [place] [address] (two) Medical times Branch daily. doxycycline 2019-0 Yes [id number] 100mg Take 1 [facility] 100 mg 8-29 tablet by ity of tablet 00:00: mouth [place] (two) Medical times Branch daily. doxycycline 2019-0 Yes [id number] 100mg Take 1 [facility] 100 mg 8-29 tablet by ity of tablet 00:00: mouth (two) Medical times Branch daily. doxycycline 2019-0 Yes [id number] 100mg Take 1 [facility] 100 mg 8-29 tablet by ity of tablet 00:00: mouth [address] [place] [address] (two) Medical times Branch daily. doxycycline 2019-0 Yes [id number] 100mg Take 1 [facility] 100 mg 8-29 tablet by ity of tablet 00:00: mouth 2 [place] (two) Medical times Branch daily. doxycycline 2020- No [id number] 100mg Take 1 [facility] 100 mg 8-29 05-19 tablet by ity of tablet 00:00: 00:[address] [place] [address] 00 :00 (two) Medical times Branch daily. doxycycline 2018-2020- No [id number] 100mg Take 1 [facility] 100 mg 8-29 05-19 tablet by ity of tablet 00:00: 00:00 mouth 2 [place] 00 :00 (two) Medical times Branch daily. spironolact 2018- Yes [id number] 25mg Take 1 [facility] one 25 mg 8-07 tablet by ity o f tablet 00:00: mouth 2 (two) Medical times Branch daily. spironolact 2018- Yes [id number] 25mg Take 1 [facility] one 25 mg 8-07 tablet by ity o f tablet 00:00: mouth 2 (two) Medical times Branch daily. spironolact 2018- Yes [id number] 25mg Take 1 [facility] one 25 mg 8-07 tablet by ity o f tablet 00:00: mouth 2 (two) Medical times Branch daily. spironolact Yes [id number] 25mg Take 1 [facility] one 25 mg 8-07 tablet by ity o f tablet 00:00: mouth 2 (two) Medical times Branch daily. spironolact Yes [id number] 25mg Take 1 [facility] one 25 mg 8-07 tablet by ity o f tablet 00:00: mouth 2 (two) Medical times Branch daily. spironolact Yes [id number] 25mg Take 1 [facility] one 25 mg 8-07 tablet by ity o f tablet 00:00: mouth 2 (two) Medical times Branch daily. spironolact 2018- Yes [id number] 25mg Take 1 [facility] one 25 mg 8-07 tablet by ity o f tablet 00:00: mouth 2 (two) Medical times Branch daily. spironolact Yes [id number] 25mg Take 1 [facility] one 25 mg 8-07 tablet by ity o f tablet 00:00: mouth 2 (two) Medical times Branch daily. spironolact 2018- Yes [id number] 25mg Take 1 [facility] one 25 mg 8-07 tablet by ity o f tablet 00:00: mouth 2 (two) Medical times Branch daily. spironolact 2018- Yes [id number] 25mg Take 1 [facility] one 25 mg 8-07 tablet by ity o f tablet 00:00: mouth 2 (two) Medical times Branch daily. ALPRAZolam Yes [id number] 1mg Take 1 [facility] 1 mg tablet 7-22 tablet by [facility]y of 00:00: mouth (two) Medical times Branch daily. Prn anxiety carvedilol Yes [id number] 3.125mg Take 1 [facility] 3.125 mg 7-22 tablet by ity of tablet 00:00: mouth 2 (two) Medical times Branch daily with meals. foLIC acid 2018- Yes [id number] 1mg Take 1 [facility] 1 mg tablet 7-22 tablet by [facility]y of 00:00: mouth 00 daily. Medical Branch furosemide 2018- Yes [id number] 40mg Take 1 [facility] 40 mg 7-22 tablet by [facility] of tablet 00:00: mouth 00 daily. Medical Branch hydrOXYzine Yes [id number] 50mg Take 1 [facility] 50 mg 7-22 tablet by [facility]y of tablet 00:00: mouth 3 (three) Medical times Branch daily as needed for Itching. metFORMIN 2018- Yes [id number] 500mg Take 1 [facility] 500 mg 7-22 tablet by [facility]y of tablet 00:00: mouth (two) Medical times Branch daily with meals. pantoprazol Yes [id number] 40mg Take 1 [facility] e 40 mg EC 7-22 tablet by ity of tablet 00:00: mouth 00 daily. Medical Branch clobetasol Yes [id number] Apply to [facility] 0.05 % 7-22 area(s) 2 ity of cream 00:00: (two) times Medical daily. Branch triamcinolo Yes [id number] Apply to [facility] ne 7-22 affected ity of acetonide 00:00: area(s) 2 [place] 0.1 % cream 00 (two) Medical times Branch daily. ALPRAZolam Yes [id number] 1mg Take 1 [facility] 1 mg tablet 7-22 tablet by ity of 00:00: mouth 2 (two) Medical times Branch daily. Prn anxiety carvedilol Yes [id number] 3.125mg Take 1 [facility] 3.125 mg 7-22 tablet by ity of tablet 00:00: mouth 2 [place] 00 (two) Medical times Branch daily with meals. foLIC acid Yes [id number] 1mg Take 1 [facility] 1 mg tablet 7-22 tablet by ity of 00:00: mouth [place] 00 daily. Medical Branch furosemide 2018- Yes [id number] 40mg Take 1 [facility] 40 mg 7-22 tablet by ity of tablet 00:00: mouth [place] 00 daily. Medical Branch hydrOXYzine 2018- Yes [id number] 50mg Take 1 [facility] 50 mg 7-22 tablet by ity of tablet 00:00: mouth 3 [place] 00 (three) Medical times Branch daily as needed for Itching. metFORMIN 2018- Yes [id number] 500mg Take 1 [facility] 500 mg 7-22 tablet by ity of tablet 00:00: mouth 2 [place] 00 (two) Medical times Branch daily with meals. pantoprazol Yes [id number] 40mg Take 1 [facility] e 40 mg EC 7-22 tablet by ity of tablet 00:00: mouth [place] 00 daily. Medical Branch clobetasol Yes [id number] Apply to [facility] 0.05 % 7-22 area(s) 2 ity of cream 00:00: (two) [place] 00 times Medical daily. Branch triamcinolo Yes [id number] Apply to [facility] ne 7-22 affected ity of acetonide 00:00: area(s) 2 [place] 0.1 % cream 00 (two) Medical times Branch daily. ALPRAZolam Yes [id number] 1mg Take 1 [facility] 1 mg tablet 7-22 tablet by ity of 00:00: mouth 2 [place] 00 (two) Medical times Branch daily. Prn anxiety carvedilol 2018- Yes [id number] 3.125mg Take 1 [facility] 3.125 mg 7-22 tablet by ity of tablet 00:00: mouth 2 [place] 00 (two) Medical times Branch daily with meals. foLIC acid Yes [id number] 1mg Take 1 [facility] 1 mg tablet 7-22 tablet by ity of 00:00: mouth [place] 00 daily. Medical Branch furosemide Yes [id number] 40mg Take 1 [facility] 40 mg 7-22 tablet by ity of tablet 00:00: mouth [place] 00 daily. Medical Branch hydrOXYzine Yes [id number] 50mg Take 1 [facility] 50 mg 7-22 tablet by ity of tablet 00:00: mouth 3 (three) Medical times Branch daily as needed for Itching. metFORMIN 2018- Yes [id number] 500mg Take 1 [facility] 500 mg 7-22 tablet by ity of tablet 00:00: mouth 2 (two) Medical times Branch daily with meals. pantoprazol 2019- Yes [id number] 40mg Take 1 [facility] e 40 mg EC 7-22 tablet by ity of tablet 00:00: mouth [place] 00 daily. Medical Branch clobetasol 2018- Yes [id number] Apply to [facility] 0.05 % 7-22 area(s) 2 ity of cream 00:00: (two) [place] 00 times Medical daily. Branch triamcinolo Yes [id number] Apply to [facility] ne 7-22 affected ity of acetonide 00:00: area(s) 2 [place] 0.1 % cream 00 (two) Medical times Branch daily. ALPRAZolam 2018- Yes [id number] 1mg Take 1 [facility] 1 mg tablet 7-22 tablet by ity of 00:00: mouth 2 (two) Medical times Branch daily. Prn anxiety carvedilol 2018- Yes [id number] 3.125mg Take 1 [facility] 3.125 mg 7-22 tablet by ity of tablet 00:00: mouth 2 (two) Medical times Branch daily with meals. foLIC acid 2018-0 Yes [id number] 1mg Take 1 [facility] 1 mg tablet 7-22 tablet by ity of 00:00: mouth [place] 00 daily. Medical Branch furosemide 2018-0 Yes [id number] 40mg Take 1 [facility] 40 mg 7-22 tablet by ity of tablet 00:00: mouth [place] 00 daily. Medical Branch hydrOXYzine 2018-0 Yes [id number] 50mg Take 1 [facility] 50 mg 7-22 tablet by ity of tablet 00:00: mouth 3 00 (three) Medical times Branch daily as needed for Itching. metFORMIN 2018- Yes [id number] 500mg Take 1 [facility] 500 mg 7-22 tablet by ity of tablet 00:00: mouth 2 (two) Medical times Branch daily with meals. pantoprazol 2018- Yes [id number] 40mg Take 1 [facility] e 40 mg EC 7-22 tablet by ity of tablet 00:00: mouth [place] 00 daily. Medical Branch clobetasol Yes [id number] Apply to [facility] 0.05 % 7-22 area(s) 2 ity of cream 00:00: (two) [place] times Medical daily. Branch triamcinolo Yes [id number] Apply to [facility] ne 7-22 affected ity of acetonide 00:00: area(s) 2 [place] 0.1 % cream 00 (two) Medical times Branch daily. ALPRAZolam Yes [id number] 1mg Take 1 [facility] 1 mg tablet 7-22 tablet by ity of 00:00: mouth 2 (two) Medical times Branch daily. Prn anxiety carvedilol 2018- Yes [id number] 3.125mg Take 1 [facility] 3.125 mg 7-22 tablet by ity of tablet 00:00: mouth 2 (two) Medical times Branch daily with meals. foLIC acid Yes [id number] 1mg Take 1 [facility] 1 mg tablet 7-22 tablet by ity of 00:00: mouth 00 daily. Medical Branch hydrOXYzine Yes [id number] 50mg Take 1 [facility] 50 mg 7-22 tablet by ity of tablet 00:00: mouth 3 (three) Medical times Branch daily as needed for Itching. metFORMIN Yes [id number] 500mg Take 1 [facility] 500 mg 7-22 tablet by ity of tablet 00:00: mouth 2 (two) Medical times Branch daily with meals. pantoprazol Yes [id number] 40mg Take 1 [facility] e 40 mg EC 7-22 tablet by ity of tablet 00:00: mouth 00 daily. Medical Branch clobetasol Yes [id number] Apply to [facility] 0.05 % 7-22 area(s) 2 ity of cream 00:00: (two) [place] 00 times Medical daily. Branch triamcinolo Yes [id number] Apply to [facility] ne 7-22 affected ity of acetonide 00:00: area(s) 2 [place] 0.1 % cream 00 (two) Medical times Branch daily. ALPRAZolam Yes [id number] 1mg Take 1 [facility] 1 mg tablet 7-22 tablet by ity of 00:00: mouth 2 (two) Medical times Branch daily. Prn anxiety carvedilol 2018- Yes [id number] 3.125mg Take 1 [facility] 3.125 mg 7-22 tablet by ity of tablet 00:00: mouth 2 (two) Medical times Branch daily with meals. foLIC acid 2018- Yes [id number] 1mg Take 1 [facility] 1 mg tablet 7-22 tablet by ity of 00:00: mouth 00 daily. Medical Branch hydrOXYzine Yes [id number] 50mg Take 1 [facility] 50 mg 7-22 tablet by ity of tablet 00:00: mouth 3 (three) Medical times Branch daily as needed for Itching. metFORMIN Yes [id number] 500mg Take 1 [facility] 500 mg 7-22 tablet by ity of tablet 00:00: mouth 2 (two) Medical times Branch daily with meals. pantoprazol Yes [id number] 40mg Take 1 [facility] e 40 mg EC 7-22 tablet by ity of tablet 00:00: mouth 00 daily. Medical Branch clobetasol Yes [id number] Apply to [facility] 0.05 % 7-22 area(s) 2 ity of cream 00:00: (two) 00 times Medical daily. Branch triamcinolo Yes [id number] Apply to [facility] ne 7-22 affected ity of acetonide 00:00: area(s) 2 [place] 0.1 % cream 00 (two) Medical times Branch daily. ALPRAZolam Yes [id number] 1mg Take 1 [facility] 1 mg tablet 7-22 tablet by ity of 00:00: mouth (two) Medical times Branch daily. Prn anxiety carvedilol 2018- Yes [id number] 3.125mg Take 1 [facility] 3.125 mg 7-22 tablet by ity of tablet 00:00: mouth 2 (two) Medical times Branch daily with meals. foLIC acid Yes [id number] 1mg Take 1 [facility] 1 mg tablet 7-22 tablet by ity of 00:00: mouth 00 daily. Medical Branch hydrOXYzine Yes [id number] 50mg Take 1 [facility] 50 mg 7-22 tablet by ity of tablet 00:00: mouth 3 (three) Medical times Branch daily as needed for Itching. metFORMIN Yes [id number] 500mg Take 1 [facility] 500 mg 7-22 tablet by ity of tablet 00:00: mouth 2 (two) Medical times Branch daily with meals. pantoprazol 2018- Yes [id number] 40mg Take 1 [facility] e 40 mg EC 7-22 tablet by ity of tablet 00:00: mouth [place] 00 daily. Medical Branch clobetasol Yes [id number] Apply to [facility] 0.05 % 7-22 area(s) 2 ity of cream 00:00: (two) [place] 00 times Medical daily. Branch triamcinolo Yes [id number] Apply to [facility] ne 7-22 affected ity of acetonide 00:00: area(s) 2 [place] 0.1 % cream 00 (two) Medical times Branch daily. ALPRAZolam Yes [id number] 1mg Take 1 [facility] 1 mg tablet 7-22 tablet by ity of 00:00: mouth 2 (two) Medical times Branch daily. Prn anxiety carvedilol 2018- Yes [id number] 3.125mg Take 1 [facility] 3.125 mg 7-22 tablet by ity of tablet 00:00: mouth 2 (two) Medical times Branch daily with meals. foLIC acid 0 Yes [id number] 1mg Take 1 [facility] 1 mg tablet 7-22 tablet by ity of 00:00: mouth [place] 00 daily. Medical Branch hydrOXYzine Yes [id number] 50mg Take 1 [facility] 50 mg 7-22 tablet by ity of tablet 00:00: mouth 3 00 (three) Medical times Branch daily as needed for Itching. metFORMIN Yes [id number] 500mg Take 1 [facility] 500 mg 7-22 tablet by ity of tablet 00:00: mouth 2 00 (two) Medical times Branch daily with meals. pantoprazol 2018- Yes [id number] 40mg Take 1 [facility] e 40 mg EC 7-22 tablet by ity of tablet 00:00: mouth [place] 00 daily. Medical Branch clobetasol Yes [id number] Apply to [facility] 0.05 % 7-22 area(s) 2 ity of cream 00:00: (two) [place] 00 times Medical daily. Branch triamcinolo Yes [id number] Apply to [facility] ne 7-22 affected ity of acetonide 00:00: area(s) 2 [place] 0.1 % cream 00 (two) Medical times Branch daily. ALPRAZolam 2018- Yes [id number] 1mg Take 1 [facility] 1 mg tablet 7-22 tablet by ity of 00:00: mouth 2 [place] (two) Medical times Branch daily. Prn anxiety carvedilol 2018- Yes [id number] 3.125mg Take 1 [facility] 3.125 mg 7-22 tablet by ity of tablet 00:00: mouth 2 (two) Medical times Branch daily with meals. foLIC acid 2018- Yes [id number] 1mg Take 1 [facility] 1 mg tablet 7-22 tablet by ity of 00:00: mouth [place] 00 daily. Medical Branch hydrOXYzine 2018- Yes [id number] 50mg Take 1 [facility] 50 mg 7-22 tablet by ity of tablet 00:00: mouth 3 00 (three) Medical times Branch daily as needed for Itching. metFORMIN 2018- Yes [id number] 500mg Take 1 [facility] 500 mg 7-22 tablet by ity of tablet 00:00: mouth 2 (two) Medical times Branch daily with meals. pantoprazol 2018- Yes [id number] 40mg Take 1 [facility] e 40 mg EC 7-22 tablet by ity of tablet 00:00: mouth [place] 00 daily. Medical Branch clobetasol 2018-0 Yes [id number] Apply to [facility] 0.05 % 7-22 area(s) 2 ity of cream 00:00: (two) 00 times Medical daily. Branch triamcinolo Yes [id number] Apply to [facility] ne 7-22 affected ity of acetonide 00:00: area(s) 2 [place] 0.1 % cream 00 (two) Medical times Branch daily. ALPRAZolam 2018- Yes [id number] 1mg Take 1 [facility] 1 mg tablet 7-22 tablet by ity of 00:00: mouth 2 [place] (two) Medical times Branch daily. Prn anxiety carvedilol 2018- Yes [id number] 3.125mg Take 1 [facility] 3.125 mg 7-22 tablet by ity of tablet 00:00: mouth 2 (two) Medical times Branch daily with meals. foLIC acid 2018- Yes [id number] 1mg Take 1 [facility] 1 mg tablet 7-22 tablet by ity of 00:00: mouth 00 daily. Medical Branch hydrOXYzine Yes [id number] 50mg Take 1 [facility] 50 mg 7-22 tablet by ity of tablet 00:00: mouth 3 (three) Medical times Branch daily as needed for Itching. metFORMIN Yes [id number] 500mg Take 1 [facility] 500 mg 7-22 tablet by ity of tablet 00:00: mouth 2 (two) Medical times Branch daily with meals. pantoprazol Yes [id number] 40mg Take 1 [facility] e 40 mg EC 7-22 tablet by ity of tablet 00:00: mouth daily. Medical Branch clobetasol Yes [id number] Apply to [facility] 0.05 % 7-22 area(s) 2 ity of cream 00:00: (two) times Medical daily. Branch triamcinolo Yes [id number] Apply to [facility] ne 7-22 affected ity of acetonide 00:00: area(s) 2 [place] 0.1 % cream 00 (two) Medical times Branch daily. ALPRAZolam Yes [id number] 1mg Take 1 [facility] 1 mg tablet 7-22 tablet by ity of 00:00: mouth (two) Medical times Branch daily. Prn anxiety carvedilol Yes [id number] 3.125mg Take 1 [facility] 3.125 mg 7-22 tablet by ity of tablet 00:00: mouth (two) Medical times Branch daily with meals. foLIC acid Yes [id number] 1mg Take 1 [facility] 1 mg tablet 7-22 tablet by ity of 00:00: mouth 00 daily. Medical Branch hydrOXYzine Yes [id number] 50mg Take 1 [facility] 50 mg 7-22 tablet by ity of tablet 00:00: mouth 3 (three) Medical times Branch daily as needed for Itching. metFORMIN Yes [id number] 500mg Take 1 [facility] 500 mg 7-22 tablet by ity of tablet 00:00: mouth 2 (two) Medical times Branch daily with meals. pantoprazol Yes [id number] 40mg Take 1 [facility] e 40 mg EC 7-22 tablet by ity of tablet 00:00: mouth [place] 00 daily. Medical Branch clobetasol Yes [id number] Apply to [facility] 0.05 % 7-22 area(s) 2 ity of cream 00:00: (two) [place] 00 times Medical daily. Branch triamcinolo Yes [id number] Apply to [facility] ne 7-22 affected ity of acetonide 00:00: area(s) 2 [place] 0.1 % cream 00 (two) Medical times Branch daily. ALPRAZolam Yes [id number] 1mg Take 1 [facility] 1 mg tablet 7-22 tablet by ity of 00:00: mouth 2 (two) Medical times Branch daily. Prn anxiety carvedilol Yes [id number] 3.125mg Take 1 [facility] 3.125 mg 7-22 tablet by ity of tablet 00:00: mouth 2 (two) Medical times Branch daily with meals. foLIC acid Yes [id number] 1mg Take 1 [facility] 1 mg tablet 7-22 tablet by ity of 00:00: mouth 00 daily. Medical Branch hydrOXYzine Yes [id number] 50mg Take 1 [facility] 50 mg 7-22 tablet by ity of tablet 00:00: mouth 3 (three) Medical times Branch daily as needed for Itching. metFORMIN Yes [id number] 500mg Take 1 [facility] 500 mg 7-22 tablet by ity of tablet 00:00: mouth 2 (two) Medical times Branch daily with meals. pantoprazol Yes [id number] 40mg Take 1 [facility] e 40 mg EC 7-22 tablet by ity of tablet 00:00: mouth 00 daily. Medical Branch clobetasol Yes [id number] Apply to [facility] 0.05 % 7-22 area(s) 2 ity of cream 00:00: (two) [place] 00 times Medical daily. Branch triamcinolo Yes [id number] Apply to [facility] ne 7-22 affected ity of acetonide 00:00: area(s) 2 [place] 0.1 % cream 00 (two) Medical times Branch daily. ALPRAZolam Yes [id number] 1mg Take 1 [facility] 1 mg tablet 7-22 tablet by ity of 00:00: mouth 2 00 (two) Medical times Branch daily. Prn anxiety carvedilol 2018- Yes [id number] 3.125mg Take 1 [facility] 3.125 mg 7-22 tablet by ity of tablet 00:00: mouth 2 (two) Medical times Branch daily with meals. foLIC acid 2018- Yes [id number] 1mg Take 1 [facility] 1 mg tablet 7-22 tablet by ity of 00:00: mouth [place] 00 daily. Medical Branch furosemide 2018- Yes [id number] 40mg Take 1 [facility] 40 mg 7-22 tablet by ity of tablet 00:00: mouth [place] 00 daily. Medical Branch hydrOXYzine 2018- Yes [id number] 50mg Take 1 [facility] 50 mg 7-22 tablet by ity of tablet 00:00: mouth 3 00 (three) Medical times Branch daily as needed for Itching. metFORMIN 2018- Yes [id number] 500mg Take 1 [facility] 500 mg 7-22 tablet by ity of tablet 00:00: mouth 2 (two) Medical times Branch daily with meals. pantoprazol 2018- Yes [id number] 40mg Take 1 [facility] e 40 mg EC 7-22 tablet by ity of tablet 00:00: mouth [place] 00 daily. Medical Branch spironolact Yes [id number] 25mg Take 1 [facility] one 25 mg 7-22 tablet by ity o f tablet 00:00: mouth 2 00 (two) Medical times Branch daily. clobetasol 2018- Yes [id number] Apply to [facility] 0.05 % 7-22 area(s) 2 ity of cream 00:00: (two) [place] 00 times Medical daily. Branch triamcinolo Yes [id number] Apply to [facility] ne 7-22 affected ity of acetonide 00:00: area(s) 2 [place] 0.1 % cream 00 (two) Medical times Branch daily. furosemide 2019- No [id number] 40mg Take 1 [facility] 40 mg 7-22 - tablet by ity of tablet 00:00: 00:00 mouth [place] 00 :00 daily. Medical Branch furosemide 2019- No [id number] 40mg Take 1 [facility] 40 mg 7-22 - tablet by ity of tablet 00:00: 00:00 mouth [place] 00 :00 daily. Medical Branch spironolact 2019- No [id number] 25mg Take 1 [facility] one 25 mg 7-22 - tablet by ity of tablet 00:00: 00:00 mouth 2 [place] 00 :00 (two) Medical times Branch daily. Pitavastati Yes 2mg Take 2 mg [facility] n[facility] n (LIVALO) 6-18 by mouth ity o f 2 mg Tab 16:18: daily. [place] [address] Medical Branch Pitavastati 0 Yes 2mg Take 2 mg U nivers n (LIVALO) 6-18 by mouth ity o f 2 mg Tab 16:18: daily. [address] Branch Pitavastati Yes 2mg Take 2 mg [facility] nivers n (LIVALO) 6-18 by mouth ity o f 2 mg Tab 16:18: daily. [address] Branch Pitavastati Yes 2mg Take 2 mg [facility] nivers n (LIVALO) 6-18 by mouth ity o f 2 mg Tab 16:18: daily. [address] Branch Pitavastati Yes 2mg Take 2 mg [facility] nivers n (LIVALO) 6-18 by mouth ity o f 2 mg Tab 16:18: daily. [address] Branch Pitavastati Yes 2mg Take 2 mg [facility] nivers n (LIVALO) 6-18 by mouth ity o f 2 mg Tab 16:18: daily. [address] Branch Pitavastati Yes 2mg Take 2 mg [facility] nivers n (LIVALO) 6-18 by mouth ity o f 2 mg Tab 16:18: daily. [address] Branch Pitavastati Yes 2mg Take 2 mg [facility] nivers n (LIVALO) 6-18 by mouth ity o f 2 mg Tab 16:18: daily. [address] Branch Pitavastati 0 Yes 2mg Take 2 mg U nivers n (LIVALO) 6-18 by mouth ity o f 2 mg Tab 16:18: daily. [address] Branch Pitavastati Yes 2mg Take 2 mg U nivers n (LIVALO) 6-18 by mouth ity o f 2 mg Tab 16:18: daily. [place] 51 Medical Branch Pitavastati 2019-0 Yes 2mg Take 2 mg U nivers n (LIVALO) 6-18 by mouth ity o f 2 mg Tab 16:18: daily. [place] [address] Medical Branch Pitavastati 2019-0 Yes 2mg Take 2 mg U nivers n (LIVALO) 6-18 by mouth ity o f 2 mg Tab 16:18: daily. [address] Pitavastati 2019-0 Yes 2mg Take 2 mg U nivers n (LIVALO) 6-18 by mouth ity o f 2 mg Tab 16:18: daily. [place] [address] Medical Branch traMADOL 2019-0 Yes [id number] 50mg Take 1 Un epifanio (ULTRAM) 50 6-18 tablet by ity of mg tablet 00:00: mouth [place] 00 every 6 Medical (six) Branch hours as needed for Pain (scale 4-6). traMADOL 0 Yes [id number] 50mg Take 1 Un epifanio (ULTRAM) 50 6-18 tablet by ity of mg tablet 00:00: mouth [place] 00 every 6 Medical (six) Branch hours as needed for Pain (scale 4-6). traMADOL 0 Yes [id number] 50mg Take 1 Un epifanio (ULTRAM) 50 6-18 tablet by ity of mg tablet 00:00: mouth [place] 00 every 6 Medical (six) Branch hours as needed for Pain (scale 4-6). traMADOL 2018-0 Yes [id number] 50mg Take 1 Un epifanio (ULTRAM) 50 6-18 tablet by ity of mg tablet 00:00: mouth [place] 00 every 6 Medical (six) Branch hours as needed for Pain (scale 4-6). traMADOL 2019-0 Yes [id number] 50mg Take 1 Un epifanio (ULTRAM) 50 6-18 tablet by ity of mg tablet 00:00: mouth [place] 00 every 6 Medical (six) Branch hours as needed for Pain (scale 4-6). traMADOL 2019-0 Yes [id number] 50mg Take 1 Un epifanio (ULTRAM) 50 6-18 tablet by ity of mg tablet 00:00: mouth [place] 00 every 6 Medical (six) Branch hours as needed for Pain (scale 4-6). traMADOL 2019-0 Yes [id number] 50mg Take 1 Un epifanio (ULTRAM) 50 6-18 tablet by ity of mg tablet 00:00: mouth [place] 00 every 6 Medical (six) Branch hours as needed for Pain (scale 4-6). traMADOL 2019-0 Yes [id number] 50mg Take 1 Un epifanio (ULTRAM) 50 6-18 tablet by ity of mg tablet 00:00: mouth [place] 00 every 6 Medical (six) Branch hours as needed for Pain (scale 4-6). traMADOL 2019-0 Yes [id number] 50mg Take 1 Un epifanio (ULTRAM) 50 6-18 tablet by ity of mg tablet 00:00: mouth [place] 00 every 6 Medical (six) Branch hours as needed for Pain (scale 4-6). traMADOL 2019-0 Yes [id number] 50mg Take 1 Un epifanio (ULTRAM) 50 6-18 tablet by ity of mg tablet 00:00: mouth [place] 00 every 6 Medical (six) Branch hours as needed for Pain (scale 4-6). traMADOL 2019-0 Yes [id number] 50mg Take 1 Un epifanio (ULTRAM) 50 6-18 tablet by ity of mg tablet 00:00: mouth [place] 00 every 6 Medical (six) Branch hours as needed for Pain (scale 4-6). traMADOL 2019-0 Yes [id number] 50mg Take 1 Un epifanio (ULTRAM) 50 6-18 tablet by ity of mg tablet 00:00: mouth [place] 00 every 6 Medical (six) Branch hours as needed for Pain (scale 4-6). traMADOL 2019-0 Yes [id number] 50mg Take 1 Un epifanio (ULTRAM) 50 6-18 tablet by ity of mg tablet 00:00: mouth [place] 00 every 6 Medical (six) Branch hours as needed for Pain (scale 4-6). traMADOL 2019-0 Yes [id number] 50mg Take 1 Un epifanio (ULTRAM) 50 6-18 tablet by ity of mg tablet 00:00: mouth [place] 00 every 6 Medical (six) Branch hours as needed for Pain (scale 4-6). traMADOL 2019-0 Yes [id number] 50mg Take 1 Un epifanio (ULTRAM) 50 6-18 tablet by ity of mg tablet 00:00: mouth [place] 00 every 6 Medical (six) Branch hours as needed for Pain (scale 4-6). traMADOL 2019-0 Yes [id number] 50mg Take 1 Un epifanio (ULTRAM) 50 6-18 tablet by ity of mg tablet 00:00: mouth [place] 00 every 6 Medical (six) Branch hours as needed for Pain (scale 4-6). traMADOL Yes [id number] 50mg Take 1 Un epifanio (ULTRAM) 50 6-18 tablet by ity of mg tablet 00:00: mouth [place] 00 every 6 Medical (six) Branch hours as needed for Pain (scale 4-6). traMADOL Yes [id number] 50mg Take 1 Un epifanio (ULTRAM) 50 6-18 tablet by ity of mg tablet 00:00: mouth [place] 00 every 6 Medical (six) Branch hours as needed for Pain (scale 4-6). traMADOL Yes [id number] 50mg Take 1 Un epifanio (ULTRAM) 50 6-18 tablet by ity of mg tablet 00:00: mouth [place] 00 every 6 Medical (six) Branch hours as needed for Pain (scale 4-6). traMADOL Yes [id number] 50mg Take 1 Un epifanio (ULTRAM) 50 6-18 tablet by ity of mg tablet 00:00: mouth [place] 00 every 6 Medical (six) Branch hours as needed for Pain (scale 4-6). traMADOL 2020- No [id number] 50mg Take 1 U nivers (ULTRAM) 50 6-18 05-19 tablet by it y of mg tablet 00:00: 00:00 mouth [place] 00 :00 every 6 Medical (six) Branch hours as needed for Pain (scale 4-6). traMADOL 2020- No [id number] 50mg Take 1 U nivers (ULTRAM) 50 6-18 05-19 tablet by it y of mg tablet 00:00: 00:00 mouth [place] 00 :00 every 6 Medical (six) Branch hours as needed for Pain (scale 4-6). folic acid Yes 1mg QD Take [address] [facility] (FOLVITE) 1 6-13 by [facility] tablet 00:00: daily . Medic al [address] [place] [address] folic acid 2018-0 Yes 1mg QD Take [address] [facility] (FOLVITE) 1 6-13 by [facility] tablet 00:00: daily . Medic al [facility] folic acid Yes 1mg QD Take [address] [facility] (FOLVITE) 1 6-13 by [facility] tablet 00:00: daily . Medic al [facility] folic acid Yes 1mg QD Take [address] [facility] (FOLVITE) 1 6-13 by [facility] tablet 00:00: daily . Medic al [facility] folic acid Yes 1mg QD Take [address] [facility] (FOLVITE) 1 6-13 by mouth [facility] tablet 00:00: daily . Medic al 00 [facility] folic acid Yes 1mg QD Take [address] [facility] (FOLVITE) 1 6-13 by mouth [facility] tablet 00:00: daily . Medic al [facility] folic acid Yes 1mg QD Take [address] [facility] (FOLVITE) 1 6-13 by mouth [facility] tablet 00:00: daily . Medic al [facility] lactulose Yes TK [address] [facility] (CHRONULAC) 5-04 PO TID [facility] gram/15 00:00: Medical mL solution [facility] lactulose Yes TK [address] [facility] (CHRONULAC) 5-04 PO TID [facility] gram/15 00:00: Medical mL solution [facility] lactulose Yes TK [address] [facility] (CHRONULAC) 5-04 PO TID [facility] gram/15 00:00: Medical mL solution [facility] lactulose 0 Yes TK [address] [facility] (CHRONULAC) 5-04 PO TID [facility] gram/15 00:00: Medical mL solution [facility] lactulose 0 Yes TK [address] [facility] (CHRONULAC) 5-04 PO TID [facility] gram/15 00:00: Medical mL solution [facility] lactulose Yes TK [address] [facility] (CHRONULAC) 5-04 PO TID [facility] gram/15 00:00: Medical mL solution [facility] lactulose 0 Yes TK [address] [facility] (CHRONULAC) 5-04 PO TID [facility] gram/15 00:00: Medical mL solution 00 [facility] blood sugar Yes [id number] Use BID, [facility] diagnostic 4-23 DX E11.9 ity o f (ACCU-CHEK 00:00: (Brand [place] GUIDE) 00 upon Medical strip insurance Branch approval) Lancets 2019- Yes [id number] Use BID, U nivers Misc 4-23 DX E11.9 ity of 00:00: (Brand [place] 00 upon Medical insurance Branch approval) Blood-Gluco 2019- Yes [id number] Use BID, [facility] se Meter 4-23 DX E11.9 ity of (ACCU-CHEK 00:00: (Brand [place] GUIDE 00 upon Medical GLUCOSE insurance Branch METER) Misc approval) ACCU-CHEK GUIDE blood sugar 2019- Yes [id number] Use BID, [facility] diagnostic 4-23 DX E11.9 ity o f (ACCU-CHEK 00:00: (Brand [place] GUIDE) 00 upon Medical strip insurance Branch approval) Lancets 2019 Yes [id number] Use BID, U nivers Misc 09-18 DX E11.9 ity of 00:00: (Brand [place] 00 upon Medical insurance Branch approval) Blood-Gluco 2018- Yes [id number] Use BID, Univers se Meter 23 DX E11.9 ity of (ACCU-CHEK 00:00: (Brand [place] GUIDE 00 upon Medical GLUCOSE insurance Branch METER) Misc approval) ACCU-CHEK GUIDE blood sugar 2019- Yes [id number] Use BID, Univers diagnostic -23 DX E11.9 ity o f (ACCU-CHEK 00:00: (Brand [place] GUIDE) 00 upon Medical strip insurance Branch approval) Lancets 2019- Yes [id number] Use BID, U nivers Misc 4-23 DX E11.9 ity of 00:00: (Brand [place] 00 upon Medical insurance Branch approval) Blood-Gluco 2019- Yes [id number] Use BID, Univers se Meter 23 DX E11.9 ity of (ACCU-CHEK 00:00: (Brand [place] GUIDE 00 upon Medical GLUCOSE insurance Branch METER) Misc approval) ACCU-CHEK GUIDE blood sugar 2019- Yes [id number] Use BID, Univers diagnostic 4-23 DX E11.9 ity o f (ACCU-CHEK 00:00: (Brand [place] GUIDE) 00 upon Medical strip insurance Branch approval) Lancets 2019- Yes [id number] Use BID, U nivers Misc 4-23 DX E11.9 ity of 00:00: (Brand [place] 00 upon Medical insurance Branch approval) Blood-Gluco 2019- Yes [id number] Use BID, Univers se Meter 4-23 DX E11.9 ity of (ACCU-CHEK 00:00: (Brand [place] GUIDE 00 upon Medical GLUCOSE insurance Branch METER) Misc approval) ACCU-CHEK GUIDE blood sugar 2019- Yes [id number] Use BID, Univers diagnostic 4-23 DX E11.9 ity o f (ACCU-CHEK 00:00: (Brand [place] GUIDE) 00 upon Medical strip insurance Branch approval) Lancets 2019- Yes [id number] Use BID, U nivers Misc 4-23 DX E11.9 ity of 00:00: (Brand [place] 00 upon Medical insurance Branch approval) Blood-Gluco 2019- Yes [id number] Use BID, Univers se Meter 4-23 DX E11.9 ity of (ACCU-CHEK 00:00: (Brand [place] GUIDE 00 upon Medical GLUCOSE insurance Branch METER) Misc approval) ACCU-CHEK GUIDE blood sugar 2018- Yes [id number] Use BID, Univers diagnostic 4-23 DX E11.9 ity o f (ACCU-CHEK 00:00: (Brand [place] GUIDE) 00 upon Medical strip insurance Branch approval) Lancets 2019- Yes [id number] Use BID, U nivers Misc 4-23 DX E11.9 ity of 00:00: (Brand [place] 00 upon Medical insurance Branch approval) Blood-Gluco 2019- Yes [id number] Use BID, Univers se Meter 4-23 DX E11.9 ity of (ACCU-CHEK 00:00: (Brand [place] GUIDE 00 upon Medical GLUCOSE insurance Branch METER) Misc approval) ACCU-CHEK GUIDE blood sugar 2019- Yes [id number] Use BID, Univers diagnostic 4-23 DX E11.9 ity o f (ACCU-CHEK 00:00: (Brand [place] GUIDE) 00 upon Medical strip insurance Branch approval) Lancets 2019- Yes [id number] Use BID, U nivers Misc 4-23 DX E11.9 ity of 00:00: (Brand [place] 00 upon Medical insurance Branch approval) Blood-Gluco 2019- Yes [id number] Use BID, Univers se Meter 4-23 DX E11.9 ity of (ACCU-CHEK 00:00: (Brand [place] GUIDE 00 upon Medical GLUCOSE insurance Branch METER) Misc approval) ACCU-CHEK GUIDE blood sugar 2019-0 Yes [id number] Use BID, Univers diagnostic 4-23 DX E11.9 ity o f (ACCU-CHEK 00:00: (Brand [place] GUIDE) 00 upon Medical strip insurance Branch approval) Lancets 2019- Yes [id number] Use BID, U nivers Misc 4-23 DX E11.9 ity of 00:00: (Brand [place] 00 upon Medical insurance Branch approval) Blood-Gluco 2019- Yes [id number] Use BID, Univers se Meter 4-23 DX E11.9 ity of (ACCU-CHEK 00:00: (Brand [place] GUIDE 00 upon Medical GLUCOSE insurance Branch METER) Misc approval) ACCU-CHEK GUIDE blood sugar 2018-0 Yes [id number] Use BID, Univers diagnostic 4-23 DX E11.9 ity o f (ACCU-CHEK 00:00: (Brand [place] GUIDE) 00 upon Medical strip insurance Branch approval) Lancets 2019- Yes [id number] Use BID, U nivers Misc -23 DX E11.9 ity of 00:00: (Brand [place] 00 upon Medical insurance Branch approval) Blood-Gluco 2019-0 Yes [id number] Use BID, Univers se Meter 4-23 DX E11.9 ity of (ACCU-CHEK 00:00: (Brand [place] GUIDE 00 upon Medical GLUCOSE insurance Branch METER) Misc approval) ACCU-CHEK GUIDE blood sugar 2019-0 Yes [id number] Use BID, Univers diagnostic 4-23 DX E11.9 ity o f (ACCU-CHEK 00:00: (Brand [place] GUIDE) 00 upon Medical strip insurance Branch approval) Lancets 2019- Yes [id number] Use BID, U nivers Misc 4-23 DX E11.9 ity of 00:00: (Brand [place] 00 upon Medical insurance Branch approval) Blood-Gluco 2019-0 Yes [id number] Use BID, Univers se Meter 4-23 DX E11.9 ity of (ACCU-CHEK 00:00: (Brand [place] GUIDE 00 upon Medical GLUCOSE insurance Branch METER) Misc approval) ACCU-CHEK GUIDE blood sugar 2019-0 Yes [id number] Use BID, Univers diagnostic 4-23 DX E11.9 ity o f (ACCU-CHEK 00:00: (Brand [place] GUIDE) 00 upon Medical strip insurance Branch approval) Lancets 2019- Yes [id number] Use BID, U nivers Misc -23 DX E11.9 ity of 00:00: (Brand [place] 00 upon Medical insurance Branch approval) Blood-Gluco 2018- Yes [id number] Use BID, Univers se Meter -23 DX E11.9 ity of (ACCU-CHEK 00:00: (Brand [place] GUIDE 00 upon Medical GLUCOSE insurance Branch METER) Misc approval) ACCU-CHEK GUIDE Blood-Gluco Yes [id number] Use BID, Univers se Meter -23 DX E11.9 ity of (ACCU-CHEK 00:00: (Brand [place] GUIDE 00 upon Medical GLUCOSE insurance Branch METER) Misc approval) ACCU-CHEK GUIDE Blood-Gluco 2018- Yes [id number] Use BID, Univers se Meter - DX E11.9 ity of (ACCU-CHEK 00:00: (Brand [place] GUIDE 00 upon Medical GLUCOSE insurance Branch METER) Misc approval) ACCU-CHEK GUIDE Blood-Gluco 2018- Yes [id number] Use BID, Univers se Meter -23 DX E11.9 ity of (ACCU-CHEK 00:00: (Brand [place] GUIDE 00 upon Medical GLUCOSE insurance Branch METER) Misc approval) ACCU-CHEK GUIDE Blood-Gluco 2018- Yes [id number] Use BID, Univers se Meter -23 DX E11.9 ity of (ACCU-CHEK 00:00: (Brand [place] GUIDE 00 upon Medical GLUCOSE insurance Branch METER) Misc approval) ACCU-CHEK GUIDE Blood-Gluco 2018- Yes [id number] Use BID, Univers se Meter -23 DX E11.9 ity of (ACCU-CHEK 00:00: (Brand [place] GUIDE 00 upon Medical GLUCOSE insurance Branch METER) Misc approval) ACCU-CHEK GUIDE Blood-Gluco 2018- Yes [id number] Use BID, Univers se Meter -23 DX E11.9 ity of (ACCU-CHEK 00:00: (Brand [place] GUIDE 00 upon Medical GLUCOSE insurance Branch METER) Misc approval) ACCU-CHEK GUIDE Blood-Gluco Yes [id number] Use BID, Univers se Meter 23 DX E11.9 ity of (ACCU-CHEK 00:00: (Brand [place] GUIDE 00 upon Medical GLUCOSE insurance Branch METER) Misc approval) ACCU-CHEK GUIDE Blood-Gluco Yes [id number] Use BID, Univers se Meter 23 DX E11.9 ity of (ACCU-CHEK 00:00: (Brand [place] GUIDE 00 upon Medical GLUCOSE insurance Branch METER) Misc approval) ACCU-CHEK GUIDE blood sugar Yes [id number] Use BID, Univers diagnostic 09-18 DX E11.9 ity o f (ACCU-CHEK 00:00: (Brand [place] GUIDE) 00 upon Medical strip insurance Branch approval) Lancets Yes [id number] Use BID, U nivers Misc 23 DX E11.9 ity of 00:00: (Brand [place] 00 upon Medical insurance Branch approval) Blood-Gluco Yes [id number] Use BID, Univers se Meter 09-18 DX E11.9 ity of (ACCU-CHEK 00:00: (Brand [place] GUIDE 00 upon Medical GLUCOSE insurance Branch METER) Misc approval) ACCU-CHEK GUIDE Blood-Gluco 2020- No [id number] Use BID, [facility] se Meter 09-18 05-19 DX E11.9 ity of (ACCU-CHEK 00:00: 00:00 [place] :[place] Medical GLUCOSE insurance Branch METER) Misc approval) ACCU-CHEK GUIDE Blood-Gluco 2020- No [id number] Use BID, [facility] se Meter 09-18 05-19 DX E11.9 ity of (ACCU-CHEK 00:00: 00:00 [place] :[place] Medical GLUCOSE insurance Branch METER) Misc approval) ACCU-CHEK GUIDE lactulose Yes [id number] 15mL Take 15 mL Univers 10 gram/15 4-08 by mouth 3 ity of mL solution 00:00: (three) [place] 00 times Medical daily. Branch lactulose Yes [id number] 15mL Take 15 mL [facility] 10 gram/15 4-08 by mouth 3 ity of mL solution 00:00: (three) [place] 00 times Medical daily. Branch lactulose Yes [id number] 15mL Take 15 mL [facility] 10 gram/15 4-08 by mouth 3 ity of mL solution 00:00: (three) [place] 00 times Medical daily. Branch lactulose 2019-0 Yes [id number] 15mL Take 15 mL [facility] 10 gram/15 4-08 by mouth 3 ity of mL solution 00:00: (three) [place] 00 times Medical daily. Branch lactulose 2019-0 Yes [id number] 15mL Take 15 mL [facility] 10 gram/15 4-08 by mouth 3 ity of mL solution 00:00: (three) [place] 00 times Medical daily. Branch lactulose 2019-0 Yes [id number] 15mL Take 15 mL [facility] 10 gram/15 4-08 by mouth 3 ity of mL solution 00:00: (three) [place] 00 times Medical daily. Branch lactulose 2019-0 Yes [id number] 15mL Take 15 mL [facility] 10 gram/15 4-08 by mouth 3 ity of mL solution 00:00: (three) [place] 00 times Medical daily. Branch lactulose 2019-0 Yes [id number] 15mL Take 15 mL [facility] 10 gram/15 4-08 by mouth 3 ity of mL solution 00:00: (three) [place] 00 times Medical daily. Branch lactulose 2019-0 Yes [id number] 15mL Take 15 mL [facility] 10 gram/15 4-08 by mouth 3 ity of mL solution 00:00: (three) [place] 00 times Medical daily. Branch lactulose 2019-0 Yes [id number] 15mL Take 15 mL [facility] 10 gram/15 4-08 by mouth 3 ity of mL solution 00:00: (three) [place] 00 times Medical daily. Branch lactulose 2019-0 Yes [id number] 15mL Take 15 mL [facility] 10 gram/15 4-08 by mouth 3 ity of mL solution 00:00: (three) [place] 00 times Medical daily. Branch lactulose 2019-0 Yes [id number] 15mL Take 15 mL [facility] 10 gram/15 4-08 by mouth 3 ity of mL solution 00:00: (three) [place] 00 times Medical daily. Branch lactulose 2019-0 Yes [id number] 15mL Take 15 mL [facility] 10 gram/15 4-08 by mouth 3 ity of mL solution 00:00: (three) [place] 00 times Medical daily. Branch furosemide 2019-0 Yes [id number] 40mg Take 1 [facility] 40 mg 2-12 tablet by ity of tablet 00:00: mouth [place] 00 every Medical morning Branch and evening. furosemide 2019-0 Yes [id number] 40mg Take 1 [facility] 40 mg 2-12 tablet by ity of tablet 00:00: mouth [place] 00 every Medical morning Branch and evening. furosemide 2019-0 Yes [id number] 40mg Take 1 [facility] 40 mg 2-12 tablet by ity of tablet 00:00: mouth [place] 00 every Medical morning Branch and evening. furosemide 2019-0 Yes [id number] 40mg Take 1 [facility] 40 mg 2-12 tablet by ity of tablet 00:00: mouth [place] 00 every Medical morning Branch and evening. furosemide 2019-0 Yes [id number] 40mg Take 1 [facility] 40 mg 2-12 tablet by ity of tablet 00:00: mouth [place] 00 every Medical morning Branch and evening. furosemide 2019-0 Yes [id number] 40mg Take 1 [facility] 40 mg 2-12 tablet by ity of tablet 00:00: mouth [place] 00 every Medical morning Branch and evening. furosemide 2019-0 Yes [id number] 40mg Take 1 [facility] 40 mg 2-12 tablet by ity of tablet 00:00: mouth [place] 00 every Medical morning Branch and evening. furosemide 2019-0 Yes [id number] 40mg Take 1 [facility] 40 mg 2-12 tablet by ity of tablet 00:00: mouth [place] 00 every Medical morning Branch and evening. furosemide 2019-0 Yes [id number] 40mg Take 1 [facility] 40 mg 2-12 tablet by ity of tablet 00:00: mouth [place] 00 every Medical morning Branch and evening. furosemide 2019-0 Yes [id number] 40mg Take 1 [facility] 40 mg 2-12 tablet by ity of tablet 00:00: mouth [place] 00 every Medical morning Branch and evening. furosemide 2019-0 Yes [id number] 40mg Take 1 [facility] 40 mg 2-12 tablet by ity of tablet 00:00: mouth [place] 00 every Medical morning Branch and evening. furosemide 2019-0 Yes [id number] 40mg Take 1 [facility] 40 mg 2-12 tablet by ity of tablet 00:00: mouth [place] 00 every Medical morning Branch and evening. furosemide 2019-0 Yes [id number] 40mg Take 1 [facility] 40 mg 2-12 tablet by ity of tablet 00:00: mouth [place] 00 every Medical morning Branch and evening. metFORMIN 2019-0 2020- No 500mg Take [address] [facility] (GLUCOPHAGE 2-12 04-06 [facility] ) 500 MG 00:00: 00:00 mouth 2 Medic al tablet 00 :00 (two) Center times daily with breakfast and dinner . lisinopril Yes [id number] 20mg Take 1 [facility] 20 mg 2-06 tablet by ity of tablet 00:00: mouth [place] 00 daily. Medical Branch lisinopril 2018-0 Yes [id number] 20mg Take 1 [facility] 20 mg 2-06 tablet by ity of tablet 00:00: mouth [place] 00 daily. Medical Branch lisinopril 2018- Yes [id number] 20mg Take 1 [facility] 20 mg 2-06 tablet by ity of tablet 00:00: mouth [place] 00 daily. Medical Branch lisinopril 2018- Yes [id number] 20mg Take 1 [facility] 20 mg 2-06 tablet by ity of tablet 00:00: mouth [place] 00 daily. Medical Branch lisinopril 2018- Yes [id number] 20mg Take 1 [facility] 20 mg 2-06 tablet by ity of tablet 00:00: mouth [place] 00 daily. Medical Branch lisinopril 2018- Yes [id number] 20mg Take 1 [facility] 20 mg 2-06 tablet by ity of tablet 00:00: mouth [place] 00 daily. Medical Branch lisinopril 2018-0 Yes [id number] 20mg Take 1 [facility] 20 mg 2-06 tablet by ity of tablet 00:00: mouth [place] 00 daily. Medical Branch lisinopril 2018-0 Yes [id number] 20mg Take 1 [facility] 20 mg 2-06 tablet by ity of tablet 00:00: mouth [place] 00 daily. Medical Branch lisinopril 2018-0 Yes [id number] 20mg Take 1 [facility] 20 mg 2-06 tablet by ity of tablet 00:00: mouth [place] 00 daily. Medical Branch lisinopril 2019-0 Yes [id number] 20mg Take 1 [facility] 20 mg 2-06 tablet by ity of tablet 00:00: mouth [place] 00 daily. Medical Branch lisinopril 2018-0 Yes [id number] 20mg Take 1 [facility] 20 mg 2-06 tablet by ity of tablet 00:00: mouth [place] 00 daily. Medical Branch lisinopril 2019-0 Yes [id number] 20mg Take 1 [facility] 20 mg 2-06 tablet by ity of tablet 00:00: mouth [place] 00 daily. Medical Branch lisinopril Yes [id number] 20mg Take 1 [facility] 20 mg 2-06 tablet by ity of tablet 00:00: mouth [place] 00 daily. [facility] Branch carvedilol Yes 6.25mg Take 6.[address] [facility] (COREG) 2-06 [facility] 3.125 MG 00:00: mouth 2 Medica l tablet 00 (two) Center times daily with breakfast and dinner . lisinopril Yes 20mg QD Take [address] [facility] (PRINIVIL,Z 2-06 by mouth [facility] ESTRIL) 20 00:00: daily . Medi jeevan MG tablet 00 [facility] carvedilol Yes 6.25mg Take 6.[address] [facility] (COREG) 2-06 [facility] 3.125 MG 00:00: mouth 2 Medica l tablet 00 (two) Center times daily with breakfast and dinner . lisinopril Yes 20mg QD Take [address] [facility] (PRINIVIL,Z 2-06 by mouth [facility] ESTRIL) 20 00:00: daily . Medi jeevan MG tablet 00 [facility] carvedilol Yes 6.25mg Take 6.[address] [facility] (COREG) 2-06 [facility] 3.125 MG 00:00: mouth 2 Medica l tablet 00 (two) Center times daily with breakfast and dinner . lisinopril 0 Yes 20mg QD Take [address] [facility] (PRINIVIL,Z 2-06 by mouth [facility] s ESTRIL) 20 00:00: daily . Medi jeevan MG tablet 00 [facility] carvedilol Yes 6.25mg Take 6.[address] [facility] (COREG) 2-06 [facility] 3.125 MG 00:00: mouth 2 Medica l tablet 00 (two) Center times daily with breakfast and dinner . lisinopril 2018-0 Yes 20mg QD Take [address] (PRINIVIL,Z 2-06 by mouth Luke s ESTRIL) 20 00:00: daily . Medi jeevan MG tablet 00 [facility] carvedilol Yes 6.25mg Take 6.[address] [facility] [address] [...] 00:00: as needed Med ical 00 . [facility] hydrOXYzine 2017-05 Yes 50mg Take [address] [facility] (ATARAX) 50 1-14 by mouth [facility] MG tablet 00:00: as needed Med ical 00 . [facility] hydrOXYzine 2017-05 Yes 50mg Take [address] [facility] (ATARAX) 50 1-14 by mouth [facility] MG tablet 00:00: as needed Med ical 00 . [facility] hydrOXYzine 2017-05 Yes 50mg Take [address] [facility] (ATARAX) 50 1-14 by mouth [facility] MG tablet 00:00: as needed Med ical 00 . [facility] hydrOXYzine 2017-05 Yes 50mg Take [address] [facility] (ATARAX) 50 1-14 by mouth [facility] MG tablet 00:00: as needed Med ical 00 . [facility] hydrOXYzine 2017-05 Yes 50mg Take [address] [facility] (ATARAX) 50 1-14 by mouth [facility] MG tablet 00:00: as needed Med ical 00 . [facility] hydrOXYzine 2017-05 Yes 50mg Take [address] [facility] (ATARAX) 50 1-14 by mouth [facility] MG tablet 00:00: as needed Med ical 00 . [facility] traMADol Yes Recurrent 50mg Take 1 [facility] [...] for Pain. No known No Univers medications [facility] No known No Univers medications [facility] Immunizations Ordered Filled Immunization Date Status Comments [facility] e Immunization Name Name SARS-COV-2 COVID-19 2021-02-05 Completed Unive rsity of PFIZER VACCINE 00:00:00 [facility] [place] [facility] SARS-COV-2 COVID-19 2021-02-05 Completed Unive rsity of PFIZER VACCINE 00:00:00 [facility] [place] [facility] SARS-COV-2 COVID-19 2021-02-05 Completed Unive rsity of PFIZER VACCINE 00:00:00 [facility] [place] [facility] SARS-COV-2 COVID-19 2021-02-05 Completed Unive rsity of PFIZER VACCINE 00:00:00 [facility] [place] [facility] SARS-COV-2 COVID-19 2021-02-05 Completed Unive rsity of PFIZER VACCINE 00:00:00 [facility] [place] [facility] SARS-COV-2 COVID-19 2021-02-05 Completed Unive rsity of PFIZER VACCINE 00:00:00 [facility] [place] [facility] SARS-COV-2 COVID-19 2021-02-05 Completed Unive rsity of PFIZER VACCINE 00:00:00 [facility] [place] [facility] Covid-19 Vaccine 2020-07-19 [facility] Antibiotic Free PF 00:00:00 [facility] IM ([id number]) Influenza 2020-06-[address] [facility] Antibiotic Free PF 00:00:00 [facility] IM ([id number]) Influenza 2020-06-[address] [facility] Antibiotic Free PF 00:00:00 [facility] IM ([id number]) Influenza 2020-06-[address] [facility] Antibiotic Free PF 00:00:00 [facility] IM ([id number]) Influenza 2020-06-[address] [facility] Antibiotic Free PF 00:00:00 [facility] ([id number]) Influenza 2020-06-[address] [facility] Antibiotic Free PF 00:00:00 [facility] IM ([id number]) Influenza 2020-06-[address] [facility] Antibiotic Free PF 00:00:00 [facility] ([id number]) Pneumococcal 2018-10-[address] [facility] Conjugate (Prevnar) 00:00:00 [facility] Pneumococcal 2018-10-[address] [facility] Conjugate (Prevnar) 00:00:00 [facility] Pneumococcal 2018-10-[address] [facility] Conjugate (Prevnar) 00:00:00 [facility] Pneumococcal 2018-10-[address] [facility] Conjugate (Prevnar) 00:00:00 [facility] Pneumococcal 2018-10-[address] [facility] Conjugate (Prevnar) 00:00:00 [facility] Pneumococcal 2018-10-[address] [facility] Conjugate (Prevnar) 00:00:00 [facility] Pneumococcal 2018-10-[address] [facility] Conjugate (Prevnar) 00:00:00 [facility] Influenza Virus 2018-04-11 Completed Universit y of Vaccine Quad IM 3+ 00:00:00 [facility] Influenza Virus 2018-04-11 Completed Universit y of Vaccine Quad IM 3+ 00:00:00 [facility] Influenza Virus 2018-04-11 Completed Universit y of Vaccine Quad IM 3+ 00:00:00 [facility] Influenza Virus 2018-04-11 Completed Universit y of Vaccine Quad IM 3+ 00:00:00 [facility] Influenza Virus 2018-04-11 Completed Universit y of Vaccine Quad IM 3+ 00:00:00 [facility] Influenza Virus 2018-04-11 Completed Universit y of Vaccine Quad IM 3+ 00:00:00 [facility] Influenza Virus 2018-04-11 Completed Universit y of Vaccine Quad IM 3+ 00:00:00 [facility] Influenza Virus 2018-04-11 Completed Universit y of Vaccine Quad IM 3+ 00:00:00 [facility] Influenza Virus 2018-04-11 Completed Universit y of Vaccine Quad IM 3+ 00:00:00 [facility] Influenza Virus 2018-04-11 Completed Universit y of Vaccine Quad IM 3+ 00:00:00 [facility] Influenza Virus 2018-04-11 Completed Universit y of Vaccine Quad IM 3+ 00:00:00 [facility] Influenza Virus 2018-04-11 Completed Universit y of Vaccine Quad IM 3+ 00:00:00 [facility] Influenza Virus 2018-04-11 Completed Universit y of Vaccine Quad IM 3+ 00:00:00 [facility] Influenza Virus 2018-04-11 Completed Universit y of Vaccine Quad IM 3+ 00:00:00 [facility] Influenza Virus 2018-04-11 Completed Universit y of Vaccine Quad IM 3+ 00:00:00 [facility] Influenza Virus 2018-04-11 Completed Universit y of Vaccine Quad IM 3+ 00:00:00 [facility] Influenza Virus 2018-04-11 Completed Universit y of Vaccine Quad IM 3+ 00:00:00 [facility] Influenza Virus 2018-04-11 Completed Universit y of Vaccine Quad IM 3+ 00:00:00 [facility] Influenza Virus 2018-04-11 Completed Universit y of Vaccine Quad IM 3+ 00:00:00 [facility] Influenza Virus 2018-04-11 Completed Universit y of Vaccine Quad IM 3+ 00:00:00 [facility] Influenza Virus 2018-04-11 Completed Universit y of Vaccine Quad IM 3+ 00:00:00 [facility] Influenza Virus 2018-04-11 Completed Universit y of Vaccine Quad IM 3+ 00:00:00 [facility] Influenza Virus 2018-04-11 Completed Universit y of Vaccine Quad IM 3+ 00:00:00 [facility] Influenza Virus 2018-04-11 Completed Universit y of Vaccine Quad IM 3+ 00:00:00 [facility] Influenza Virus 2018-04-11 Completed Universit y of Vaccine Quad IM 3+ 00:00:00 [facility] Influenza Virus 2018-04-11 Completed Universit y of Vaccine Quad IM 3+ 00:00:00 [facility] Influenza Virus 2018-04-11 Completed Universit y of Vaccine Quad IM 3+ 00:00:00 [facility] Influenza Virus 2018-04-11 Completed Universit y of Vaccine Quad IM 3+ 00:00:00 [facility] Influenza Virus 2018-04-11 Completed Universit y of Vaccine Quad IM 3+ 00:00:00 [facility] Influenza Virus 2018-04-11 Completed Universit y of Vaccine Quad IM 3+ 00:00:00 [facility] Influenza Virus 2018-04-11 Completed Universit y of Vaccine Quad IM 3+ 00:00:00 [facility] Influenza Four-QIV 2018-04-[address] [facility] PF 3+YR IM 00:00:00 [facility] Influenza Four-QIV 2018-04-[address] [facility] PF 3+YR IM 00:00:00 [facility] Influenza Four-QIV 2018-04-[address] [facility] PF 3+YR IM 00:00:00 [facility] Influenza Four-QIV 2018-04-[address] [facility] PF 3+YR IM 00:00:00 [facility] Influenza Four-QIV 2018-04-[address] [facility] PF 3+YR IM 00:00:00 [facility] Influenza Four-QIV 2018-04-[address] [facility] PF 3+YR IM 00:00:00 [facility] Influenza Four-QIV 2018-04-[address] [facility] PF 3+YR IM 00:00:00 [facility] Td 2016-09-18 Completed University of 00:00:00 [facility] Td 2016-09-18 Completed University of 00:00:00 [facility] Td 2016-09-18 Completed University of 00:00:00 [facility] Td 2016-09-18 Completed University of 00:00:00 [facility] Td 2016-09-18 Completed University of 00:00:00 [facility] Td 2016-09-18 Completed University of 00:00:00 [facility] Td 2016-09-18 Completed University of 00:00:00 [place] [facility] Td 2016-09-18 Completed University of 00:00:00 [place] [facility] Td 2016-09-18 Completed University of 00:00:00 [facility] Td 2016-09-18 Completed University of 00:00:00 [facility] Td 2016-09-18 Completed University of 00:00:00 [facility] Td 2016-09-18 Completed University of 00:00:00 [facility] Td 2016-09-18 Completed University of 00:00:00 [facility] Td 2016-09-18 Completed University of 00:00:00 [facility] Td 2016-09-18 Completed University of 00:00:00 [facility] Td 2016-09-18 Completed University of 00:00:00 [facility] Td 2016-09-18 Completed University of 00:00:00 [facility] Td 2016-09-18 Completed University of 00:00:00 [facility] Td 2016-09-18 Completed University of 00:00:00 [facility] Td 2016-09-18 Completed University of 00:00:00 [facility] Td 2016-09-18 Completed University of 00:00:00 [facility] Td 2016-09-18 Completed University of 00:00:00 [place] [facility] Td 2016-09-18 Completed University of 00:00:00 [place] [facility] Td 2016-09-18 Completed University of 00:00:00 [facility] Td 2016-09-18 Completed University of 00:00:00 [place] [facility] Td 2016-09-18 Completed University of 00:00:00 [facility] Td 2016-09-18 Completed University of 00:00:00 [facility] Td 2016-09-18 Completed University of 00:00:00 [facility] Td 2016-09-18 Completed University of 00:00:00 [place] [facility] Td 2016-09-18 Completed University of 00:00:00 [facility] Td 2016-09-18 Completed University of 00:00:00 [place] [facility] Td 2016-09-18 Completed University of 00:00:00 [place] [facility] Td 2016-09-18 Completed University of 00:00:00 [facility] Td 7+ years, 2016-09-18 Completed [facility] [...] 2021-12-26 150 mm[Hg] University of pressure 20:38:00 [facility] Diastolic blood 2021-12-26 79 mm[Hg] University o f pressure 20:38:00 [facility] Heart rate 2021-12-26 104 /min University 20:38:00 [facility] Body temperature 2021-12-26 38.06 Corrina University 20:38:00 [facility] Respiratory rate 2021-12-26 18 /min University 20:38:00 [facility] Body height 2021-12-26 167.6 cm University 20:38:00 [facility] Body weight 2021-12-26 108.863 kg University of 20:38:00 [facility] BMI 2021-12-26 38.74 kg/m2 University of 20:38:00 [facility] Oxygen saturation 2021-12-26 99 /min [facility] in Arterial blood 20:38:00 [facility] by Pulse oximetry Raphine HEIGHT 2021-12-22 167.6 cm 10:36:00 WEIGHT 2021-12-22 [...] 2021-04-01 119 mm[Hg] [facility] pressure 20:00:00 [facility] Diastolic blood 2021-04-01 65 mm[Hg] University o [facility] pressure 20:00:00 [facility] Heart rate 2021-04-01 57 /min University of 20:00:00 [facility] Respiratory rate 2021-04-01 16 /min University of 20:00:00 [facility] Oxygen saturation 2021-04-01 100 /min Simultaneous [facility] in Arterial blood 20:00:00 filing. User may [facility] by Pulse oximetry not have seen Raphine previous data. Body temperature 2021-04-01 36.22 Corrina University of 18:07:00 [facility] Body height 2021-04-01 166 cm University of 18:07:00 [facility] Body weight 2021-04-01 104.327 kg University of 18:07:00 [facility] BMI 2021-04-01 37.86 kg/m2 University of 18:07:00 [facility] HEIGHT 2021-03-12 167.6 cm 07:20:00 WEIGHT [...] 2020-08-19 132 mm[Hg] [facility] pressure 14:00:00 [facility] Diastolic blood 2020-08-19 77 mm[Hg] University o [facility] pressure 14:00:00 [facility] Heart rate 2020-08-19 71 /min University of 14:00:00 [facility] Respiratory rate 2020-08-19 18 /min University of 14:00:00 [facility] Oxygen saturation 2020-08-19 99 /min University of in Arterial blood 14:00:00 [place] [facility] by Pulse oximetry Branch Body temperature 2020-08-19 36.94 Corrina University of 12:32:00 [facility] Body weight 2020-08-19 106.142 kg University of 12:32:00 [facility] BMI 2020-08-19 37.77 kg/m2 University of 12:32:00 [facility] Systolic blood 2020-08-19 132 mm[Hg] [facility] of pressure 14:00:00 [facility] Diastolic blood 2020-08-19 77 mm[Hg] University o f pressure 14:00:00 [facility] Heart rate 2020-08-19 71 /min University of 14:00:00 [facility] Respiratory rate 2020-08-19 18 /min University of 14:00:00 [facility] Oxygen saturation 2020-08-19 99 /min [facility] of in Arterial blood 14:00:00 [place] [facility] by Pulse oximetry Branch Body temperature 2020-08-19 36.94 Corrina University of 12:32:00 [facility] Body weight 2020-08-19 106.142 kg University of 12:32:00 [facility] BMI 2020-08-19 37.77 kg/m2 University of 12:32:00 [facility] Systolic blood 2020-06-26 120 mm[Hg] [facility] pressure 03:00:00 [facility] Diastolic blood 2020-06-26 103 mm[Hg] University o f pressure 03:00:00 [facility] Heart rate 2020-06-26 83 /min University of 03:00:00 [facility] Respiratory rate 2020-06-26 20 /min University of 03:00:00 [facility] Oxygen saturation 2020-06-26 99 /min University of in Arterial blood 03:00:00 [place] [facility] by Pulse oximetry Branch Body temperature 2020-06-25 36.44 Corrina University of 23:03:00 [facility] Body height 2020-06-25 167.6 cm University of 23:03:00 [facility] Body weight 2020-06-25 105.235 kg University of 23:03:00 [facility] BMI 2020-06-25 37.45 kg/m2 University of 23:03:00 [facility] Systolic blood 2020-06-26 120 mm[Hg] [facility] pressure 03:00:00 [facility] Diastolic blood 2020-06-26 103 mm[Hg] [facility] pressure 03:00:00 [facility] Heart rate 2020-06-26 83 /min University of 03:00:00 [facility] Respiratory rate 2020-06-26 20 /min University of 03:00:00 [facility] Oxygen saturation 2020-06-26 99 /min [facility] in Arterial blood 03:00:00 [facility] by Pulse oximetry Raphine Body temperature 2020-06-25 36.44 Corrina [place] of 23:03:00 [facility] Body height 2020-06-25 167.6 cm University of 23:03:00 [facility] Body weight 2020-06-25 105.235 kg University of 23:03:00 [facility] BMI 2020-06-25 37.45 kg/m2 University of 23:03:00 [facility] HEIGHT 2020-03-13 167.6 cm 10:38:00 WEIGHT 2020-03-13 108.41 kg 10:38:00 HEIGHT 2020-03-13 167.6 cm 10:38:00 WEIGHT 2020-03-13 108.41 kg 10:38:00 HEIGHT 2019-12-24 167.6 cm 00:00:00 WEIGHT 2019-12-24 103 kg 00:00:00 Systolic blood 2019-01-21 131 mm[Hg] [facility] pressure 21:03:00 [facility] Diastolic blood 2019-01-21 79 mm[Hg] [facility] pressure 21:03:00 [facility] Heart rate 2019-01-21 73 /min University of 21:03:00 [facility] Body temperature 2019-01-21 37.06 Corrina University of 21:03:00 [facility] Respiratory rate 2019-01-21 18 /min University of 21:03:00 [facility] Body weight 2019-01-21 103.103 kg University of 21:03:00 [facility] BMI 2019-01-21 36.69 kg/m2 University of 21:03:00 [facility] Oxygen saturation 2019-01-21 98 /min University of in Arterial blood 21:03:00 [facility] by Pulse oximetry Branch Systolic blood 2019-01-21 131 mm[Hg] [facility] pressure 21:03:00 [facility] Diastolic blood 2019-01-21 79 mm[Hg] [facility] o [facility] pressure 21:03:00 [facility] Heart rate 2019-01-21 73 /min University of 21:03:00 [facility] Body temperature 2019-01-21 37.06 Corrina University of 21:03:00 [facility] Respiratory rate 2019-01-21 18 /min University of 21:03:00 [facility] Body weight 2019-01-21 103.103 kg University 21:03:00 [facility] BMI 2019-01-21 36.69 kg/m2 University 21:03:00 [facility] Oxygen saturation 2019-01-21 98 /min [facility] in Arterial blood 21:03:00 [facility] by Pulse oximetry Branch Systolic blood 2022-08-02 118 mm[Hg] [facility] pressure 16:38:00 [facility] Diastolic blood 2022-08-02 62 mm[Hg] [facility] pressure 16:38:00 [facility] Heart rate 2022-08-02 65 /min [facility] 16:38:00 [facility] Respiratory rate 2022-08-02 18 /min [facility] 16:38:00 [facility] Body height 2022-08-02 167.6 cm [facility] 16:38:00 [facility] Body weight 2022-08-02 112.492 kg [facility] 16:38:00 [facility] BMI 2022-08-02 40.03 kg/m2 [facility] 16:38:00 [facility] Systolic blood 2022-06-01 135 mm[Hg] [facility] pressure 09:55:00 [facility] Diastolic blood 2022-06-01 77 mm[Hg] [facility] pressure 09:55:00 [facility] Heart rate 2022-06-01 66 /min [facility] 09:55:00 [facility] Body temperature 2022-06-[address] [facility] 09:55:00 [facility] Respiratory rate 2022-06-01 18 /min [facility] 09:55:00 [facility] Body height 2022-06-[address] [facility] 09:55:00 [facility] Body weight 2022-06-[address] [facility] 09:55:00 [facility] BMI 2022-06-01 39.45 kg/m2 [facility] 09:55:00 [facility] Oxygen saturation 2022-06-01 97 /min [facility] Ar[facility] blood 09:55:00 [facility] by Pulse oximetry Systolic blood 2021-12-22 150 mm[Hg] [facility] pressure 10:36:00 [facility] Diastolic blood 2021-12-22 76 mm[Hg] [facility] pressure 10:36:00 [facility] Heart rate 2021-12-22 75 /min [facility] 10:36:00 [facility] Body temperature 2021-12-[address] [facility] 10:36:[facility] Respiratory rate 2021-12-22 18 /min [facility] 10:36:00 [facility] Body height 2021-12-[address] [facility] 10:36:00 [facility] Body weight 2021-12-[address] [facility] 10:36:00 [facility] BMI 2021-12-22 39.92 kg/m2 [facility] 10:36:00 [facility] Oxygen saturation 2021-12-22 98 /min [...] 18 /min [facility] 13:30[facility] Oxygen saturation 2021-03-12 94 /min [facility] Arterial blood 13:30:00 [facility] by Pulse oximetry Body temperature 2021-03-[address] [facility] 12:02:[facility] Body height 2021-03-[address] [facility] 07:20:00 [facility] Body weight 2021-03-[address] [facility] 07:20:00 [facility] BMI 2021-03-12 36.32 kg/m2 [facility] 07:20:[facility] Procedures Procedure Date / Time Performing Clinician Source Performed CT CHEST WITHOUT IV 2022-05-18 12:02:00 Amberly Washington [facility] CONTRAST Center MR ABDOMEN WITH & WITHOUT 2022-05-18 11:40:00 Amberly Washington [facility] IV CONTRAST Center ALPHA FETOPROTEIN (AFP), 2022-05-18 09:45:00 Amberly Washington [facility] TUMOR MARKER Center BASIC METABOLIC PANEL 2022-05-18 09:45:00 Amberly [facility] CBC W/PLT COUNT & AUTO 2022-05-18 09:45:00 Amberly Washington [facility] DIFFERENTIAL Maria Stein HEPATIC FUNCTION PANEL 2022-05-18 09:45:00 Amberly Washington [facility] PROTHROMBIN TIME/INR 2022-05-18 09:45:00 Amberly Washington I [facility] CBC W/PLT COUNT & AUTO 2022-05-18 09:45:00 Amberly Washington [facility] DIFFERENTIAL Center CBC W/PLT COUNT & AUTO 2022-01-07 14:53:00 Amberly Washington [facility] DIFFERENTIAL Center IRON, TIBC, % SAT. 2022-01-07 14:53[facility]OUT [facility]) Center FERRITIN 2022-01-07 14:53:00 DaniloscAmberly [facility] PLATELET ESTIMATION 2022-01-07 14:53:00 Amberly Washington [facility] MR BRAIN WITH & WITHOUT IV 2022-01-04 14:14:00 Amberly Washington [facility] CONTRAST Center CT HEAD WO CONTRAST 2021-12-26 22:35:08 Felisha Quintana [facility] BASIC METABOLIC PANEL (NA, 2021-12-26 21:33:00 Felisha Quintana [facility] K, CL, CO2, GLUCOSE, BUN, Medica l Branch CREATININE, CA) CBC WITH DIFF 2021-12-26 21:33:00 Felisha Quintana [facility] URINALYSIS 2021-12-26 21:33:00 Felisha Quintana [facility] COVID-19 (ID NOW RAPID 2021-12-26 20:48:00 Felisha Quintana [facility] TESTING) Medical Branch CONSENT/REFUSAL FOR 2021-12-26 20:32:58 Doctor Unassigned, [facility] DIAGNOSIS AND TREATMENT [facility] BASIC METABOLIC PANEL 2021-12-22 12:08:00 Amberly [facility] CBC W/PLT COUNT & AUTO 2021-12-22 12:08:00 Amberly Washington [facility] HEPATIC FUNCTION PANEL 2021-12-22 12:08:00 Amberly Washington [facility] PROTHROMBIN TIME/INR 2021-12-22 12:08:00 Amberly Washington [facility] CBC W/PLT COUNT & AUTO 2021-12-22 12:08:00 Amberly Washington [facility] ALPHA FETOPROTEIN (AFP), 2021-12-06 13:43:00 Amberly Washington [facility] TUMOR MARKER Center BASIC METABOLIC PANEL 2021-12-06 13:43:00 Amberly [facility] CBC W/PLT COUNT & AUTO 2021-12-06 13:43:00 Amberly Washington [facility] HEPATIC FUNCTION PANEL 2021-12-06 13:43:00 Amberly Washington [facility] PROTHROMBIN TIME/INR 2021-12-06 13:43:00 Amberly Washington [facility] CBC W/PLT COUNT & AUTO 2021-12-06 13:43:00 Amberly Washington [facility] MR ABDOMEN WITH & WITHOUT 2021-12-06 12:08:00 Amberly Washington [facility] IV CONTRAST Center MR METASTATIC SKELETAL 2021-12-06 11:10:00 Amberly Washington [facility] STUDY Center CT CHEST WITHOUT IV 2021-12-06 10:40:00 Amberly Washington [facility] CONTRAST Center MR ABDOMEN WITH & WITHOUT 2021-08-26 10:40:00 Amberly aWshington [facility] IV CONTRAST Center CT CHEST WITHOUT IV 2021-08-26 10:00:00 Amberly Washington [facility] CONTRAST Center ALPHA FETOPROTEIN (AFP), 2021-08-26 08:27:00 Amberly Washington [facility] TUMOR MARKER Center BASIC METABOLIC PANEL 2021-08-26 08:27:00 Amberly [facility] CBC W/PLT COUNT & AUTO 2021-08-26 08:27:00 Amberly Washington [facility] HEPATIC FUNCTION PANEL 2021-08-26 08:27:00 Amberly Washington [facility] PROTHROMBIN TIME/INR 2021-08-26 08:27:00 Amberly Washington [facility] CBC W/PLT COUNT & AUTO 2021-08-26 08:27:00 Amberly Washington [facility] HEREDITARY HEMOCHROMATOSIS 2021-08-26 08:24:00 Amberly Washington [facility] COMPREHENSIVE METABOLIC 2021-08-03 11:34:00 Amberly Washington [facility] PANEL Center ALPHA FETOPROTEIN (AFP), 2021-08-03 11:34:00 Amberly Washington [facility] TUMOR MARKER Center PROTHROMBIN TIME/INR 2021-08-03 11:34:00 Amberly Washington [facility] CBC W/PLT COUNT & AUTO 2021-08-03 11:34:00 Amberly Washington [facility] NM BONE SCAN WHOLE BODY 2021-04-29 13:03:00 Amberly Washington [facility] MR ABDOMEN WITH & WITHOUT 2021-04-29 11:48:00 Amberly Washington [facility] IV CONTRAST Center CT CHEST WITHOUT IV 2021-04-29 10:31:00 Amberly Washington [facility] CONTRAST Center ALPHA FETOPROTEIN (AFP), 2021-04-29 09:09:00 Amberly Washington [facility] TUMOR MARKER Center BASIC METABOLIC PANEL 2021-04-29 09:09:00 Amberly Washington C HI [facility] CBC W/PLT COUNT & AUTO 2021-04-29 09:09:00 Amberly Washington [facility] DIFFERENTIAL Center HEPATIC FUNCTION PANEL 2021-04-29 09:09:00 Amberly Washington [facility] PROTHROMBIN TIME/INR 2021-04-29 09:09:00 Amberly Washington CH I [facility] CBC W/PLT COUNT & AUTO 2021-04-29 09:09:00 Amberly Washington [facility] DIFFERENTIAL Center TROPONIN I 2021-04-01 19:14:00 Chandrakant Garertt [facility] COMP. METABOLIC PANEL 2021-04-01 19:14:00 [facility]andrakant [facility] ([id number] AMMONIA, PLASMA 2021-04-01 19:12:00 Singer Chandrakant [facility] CBC WITH DIFF 2021-04-01 19:12:00 Chandrakant Garrett [facility] XR CHEST 1 VW 2021-04-01 18:51:09 Singer [facility] URINALYSIS 2021-04-01 18:40:00 Singer [facility] PROTHROMBIN TIME / INR 2021-04-01 18:30:00 Chandrakant Garrett [facility] CONSENT/REFUSAL FOR 2021-04-01 17:58:35 Doctor [facility] DIAGNOSIS AND TREATMENT [facility] IR EMBOLIZATION ARTERIAL 2021-03-12 12:05:00 Amberly Washington [facility] BASIC METABOLIC PANEL (7) 2021-03-12 07:01:00 Derik Anne-Marie I [facility] HEPATIC FUNCTION PANEL 2021-03-12 07:01:00 Derik Anne-Marie [facility] CBC W/PLT COUNT & AUTO 2021-03-12 07:01:00 [facility] PROTHROMBIN TIME/INR 2021-03-12 07:01:00 Derik Anne-Marie [facility] CBC W/PLT COUNT & AUTO 2021-03-12 07:01:00 [facility] DIFFERENTIAL [facility] CBC W/PLT COUNT & AUTO 2021-02-23 10:05:00 [facility] [place] PROTHROMBIN TIME/INR 2021-02-23 10:05:00 [facility] APTT 2021-02-23 10:05:00 [facility] BASIC METABOLIC PANEL (7) 2021-02-23 10:05:00 Aicha [facility] HEPATIC FUNCTION PANEL 2021-02-23 10:05:00 [facility] CBC W/PLT COUNT & AUTO 2021-02-23 10:05:00 [facility] Aicha [facility] DIFFERENTIAL [place] SARS-COV-2 COVID-19 2021-02-05 15:47:55 Doctor Unassigned, [facility] VACCINE,0.3ML,IM (PFIZER) [facility] MR ABDOMEN WITH & WITHOUT 2021-01-21 12:00:00 Amberly Washington [facility] IV CONTRAST Center CT CHEST WITHOUT IV 2021-01-21 10:45:00 Amberly Washington [facility] CONTRAST Center ALPHA FETOPROTEIN (AFP), 2021-01-21 10:02:00 Amberly Washington [facility] TUMOR MARKER Center BASIC METABOLIC PANEL (7) 2021-01-21 10:02:00 Amberly Washington [facility] CBC W/PLT COUNT & AUTO 2021-01-21 10:02:00 Amberly Washington [facility] HEPATIC FUNCTION PANEL 2021-01-21 10:02:00 Amberly Washington [facility] PROTHROMBIN TIME/INR 2021-01-21 10:02:00 Amberly Washington I [facility] HEPATITIS C PCR, 2021-01-21 10:02:00 Amberly Washington [facility] QUANTITATIVE Maria Stein CBC W/PLT COUNT & AUTO 2021-01-21 10:02:00 Amberly Washington [facility] IR EMBOLIZATION ARTERIAL 2020-11-26 12:27:00 Amberly Washington [facility] BASIC METABOLIC PANEL (7) 2020-11-26 08:28:00 Anne-Marie More [facility] HEPATIC FUNCTION PANEL 2020-11-26 08:28:00 [facility] CBC W/PLT COUNT & AUTO 2020-11-26 08:28:00 [facility] PROTHROMBIN TIME/INR 2020-11-26 08:28:00 Anne[facility]Marie [facility] 2020-11-26 08:28:00 Anne-Marie More [facility] CBC W/PLT COUNT & AUTO 2020-11-26 08:28:00 Derik [facility]FFERENTIAL [facility] BASIC METABOLIC PANEL (7) 2020-10-28 10:55:00 Amberly Washington [facility] HEPATIC FUNCTION PANEL 2020-10-28 10:55:00 Amberly Washington [facility] CBC W/PLT COUNT & AUTO 2020-10-28 10:55:00 Amberly Washington [facility] PROTHROMBIN TIME/INR 2020-10-28 10:55:00 Amberly Washington [facility] HEPATITIS C PCR, 2020-10-28 10:55:00 Amberly Washington [facility] QUANTITATIVE Center CBC W/PLT COUNT & AUTO 2020-10-28 10:55:00 Amberly Washington [facility] NM BONE SCAN WHOLE BODY 2020-10-08 14:02:00 Amberly Washington [facility] ALPHA FETOPROTEIN (AFP), 2020-10-08 10:54:00 Amberly Washington [facility] TUMOR MARKER Center BASIC METABOLIC PANEL (7) 2020-10-08 10:54:00 Amberly Washington [facility] CBC W/PLT COUNT & AUTO 2020-10-08 10:54:00 Amberly Washington [facility] HEPATIC FUNCTION PANEL 2020-10-08 10:54:00 Amberly Washington [facility] PROTHROMBIN TIME/INR 2020-10-08 10:54:00 Amberly Washington [facility] CBC W/PLT COUNT & AUTO 2020-10-08 10:54:00 Amberly [address] [facility] [address] CHEST WITHOUT IV 2020-10-08 09:45:00 Amberly Washington [facility] CONTRAST Center MR ABDOMEN WITH & WITHOUT 2020-09-01 14:15:00 Jose Francisco Laguna [facility] IV CONTRAST Center BASIC METABOLIC PANEL (7) 2020-09-01 13:15:00 Nickie Yeh [facility] Nikole Maria Stein HEPATIC FUNCTION PANEL 2020-09-01 13:15:00 Nickie Yeh [facility] Nikole Center CBC W/PLT COUNT & AUTO 2020-09-01 13:15:00 Nickie Yeh [facility] DIFFERENTIAL Nikole Maria Stein PROTHROMBIN TIME/INR 2020-09-01 13:15:00 Nickie Yeh [facility] ALPHA FETOPROTEIN (AFP), 2020-09-01 13:15:00 Nickie Yeh I [facility] TUMOR MARKER [facility] CBC W/PLT COUNT & AUTO 2020-09-01 13:15:00 Nickie Yeh [facility] DIFFERENTIAL [facility] XR CHEST 1 VW 2020-08-19 13:29:53 Wendy Bull [facility] HB ECG ROUTINE & RHYTHM 2020-08-19 13:05:46 [facility] 2020-08-19 13:01:00 Wendy Bull [facility] TROPONIN I 2020-08-19 13:01:00 Wendy Bull [facility] HEPATIC FUNCTION PANEL 2020-08-19 13:01:00 Wendy Bull [facility] ([id number]) (ALB,T.PRO,BILI [facility] T,BU/BC,ALT,AST,ALK PHOS) BASIC METABOLIC PANEL (NA, 2020-08-19 13:01:00 Wendy Bull [facility] K, CL, CO2, GLUCOSE, BUN, Medica l Branch CREATININE, CA) CBC WITH DIFF 2020-08-19 13:01:00 Wendy Bull [facility] N-TERMINAL PRO-BNP 2020-08-19 13:01:00 Wendy Bull [facility] COVID-19 (ID NOW RAPID 2020-08-19 13:01:00 Wendy Bull [facility] TESTING) [facility] CONSENT/REFUSAL FOR 2020-08-19 12:21:55 Doctor Unassigned, [facility] DIAGNOSIS AND TREATMENT [facility] AMMONIA, PLASMA 2020-06-26 01:01:00 [place] [facility] PROTHROMBIN TIME / INR 2020-06-26 01:01:00 [facility] XR CHEST 1 VW 2020-06-25 23:46:19 [place] [facility] LIPASE 2020-06-25 23:43:00 [place] [facility] MAGNESIUM 2020-06-25 23:43:00 [place] [facility] TROPONIN I 2020-06-25 23:43:00 [place] [facility] HEPATIC FUNCTION PANEL 2020-06-25 23:43:00 Carolina San [facility] ([id number]) (ALB,T.PRO,BILI Medical Raphine T,BU/BC,ALT,AST,ALK PHOS) BASIC METABOLIC PANEL (NA, 2020-06-25 23:43:00 [place] San [facility] K, CL, CO2, GLUCOSE, BUN, Medica l Branch CREATININE, CA) CBC WITH DIFF 2020-06-25 23:43:00 [place] San [facility] URINALYSIS 2020-06-25 23:43:00 [place] San [facility] N-TERMINAL PRO-BNP 2020-06-25 23:43:00 [facility] San [facility] COVID-19 (ID NOW RAPID 2020-06-25 23:43:00 [place] San [facility] TESTING) Medical Branch NOTICE OF PRIVACY 2020-06-25 22:41:45 Doctor Arboleda [facility] PRACTICES [facility] CONSENT/REFUSAL FOR 2020-06-25 22:41:29 Doctor Arobleda [facility] DIAGNOSIS AND TREATMENT [facility] 2019-02-08 05:01:00 Doctor Arboleda [facility] 2019-01-31 05:01:00 Doctor [facility] POCT HEMOGLOBIN A1C TEST 2019-01-21 21:30:00 Brenda Rod [facility] DME/SUPPLY JUSTIFICATION 2019-01-17 05:01:00 Doctor Arboleda [facility] HEALTH - OTHER 2019-01-07 05:01:00 Doctor [facility] HEALTH - OTHER 2019-01-02 05:01:00 Trung Conte [facility] Name Medical Raphine HOME HEALTH - OTHER 2018-12-28 05:01:[address] [facility] INSURANCE CORRESPONDENCE 2018-12-17 05:01:00 Doctor Arboleda [facility] PATIENT QUESTIONNAIRE 2016-10-19 05:01:00 [facility] 2016-10-13 05:01:[address] [facility] Plan of Care Planned Activity Planned Date Details Comments Source Future Scheduled 2028-06-[address] [facility] colon (procedure) [code = 480496451] Future Scheduled 2028-06-[address] [facility] 00[facility] (procedure) [code = 159892637] Future Scheduled 2028-06-[address] [facility] 00:00:00 [facility] colon (procedure) [code = 035559399] Future Scheduled 2028-06-[address] [facility] 00:00:00 [facility] colon (procedure) [code = 080881462] Future Scheduled 2028-06-[address] [facility] 00:[facility]:00 [facility] colon (procedure) [code = 735520366] Future Scheduled 2028-06-[address] [facility] 00:00:00 [facility] colon (procedure) [code = 660825326] Future Scheduled 2028-06-[address] [facility] 00:00:00 [facility] colon (procedure) [code = 182128307] Future Scheduled 2028-06-[address] [facility] 00:00:00 [facility] colon (procedure) [code = 670336366] Future Scheduled 2028-06-[address] [facility] 00:00:00 [facility] colon (procedure) [code = 876593613] Future Scheduled 2028-06-[address] [facility] 00:00:00 [facility] colon (procedure) [code = 712005081] Future Scheduled 2028-06-[address] [facility] 00:00:00 [facility] colon (procedure) [code = 317042503] Future Scheduled 2028-06-[address] [facility] 00:00:00 [facility] colon (procedure) [code = 471292271] Future Scheduled 2028-06-[address] [facility] 00:00:00 [facility] colon (procedure) [code = 826686266] Future Scheduled 2026-09-18 DTAP/TDAP/TD VACCINES [facility] [...] (2 - Td or Tdap)] Future Scheduled 2022-08-02 Hepatitis C screening [facility] Test 10:48:26 (procedure) [code = 672987559] Future Scheduled 2022-08-02 COLONOSCOPY SCREENING [facility] Test 10:48:26 [code = COLONOSCOPY SCREENING] Future Scheduled 2022-08-02 SHINGLES VACCINES (1 Met [facility] Test 10:48:26 of 2) [code = SHINGLES VACCINES (1 of 2)] Future Scheduled 2022-08-02 HEPATITIS B VACCINES Met [facility] Test 10:48:26 (1 of 3 - Risk 3-dose series) [code = HEPATITIS B VACCINES (1 of 3 - Risk 3-dose series)] Future Scheduled 2022-08-02 65+ PNEUMOCOCCAL Methodi [facility] Test 10:48:26 VACCINE (2 - PPSV23 if available, else PCV20) [code = 65+ PNEUMOCOCCAL VACCINE (2 - PPSV23 if available, else PCV20)] Future Scheduled 2022-08-02 COVID-19 VACCINE (4 - [facility] Test 10:48:26 Booster for Pfizer series) [code = COVID-19 VACCINE (4 - Booster for Pfizer series)] Future Scheduled 2022-08-02 INFLUENZA VACCINE Method [facility] Test 10:48:26 [code = INFLUENZA VACCINE] Future Scheduled 2022-05-[address] [facility] Test 00:00:00 (12+) [code = Medical Center DEPRESSION SCREENING (12+)] Future Scheduled 2022-05-29 FALLS RISK SCREENING [facility] Test 00:00:00 [code = FALLS RISK Medical C enter SCREENING] Future Scheduled 2022-05-[address] [...] VACCINE (#1)] Future Scheduled 2021-12-[address] [facility] 00:00:00 (procedure) [code = [facility] 94244173] Future Scheduled 2021-12-[address] [facility] 00:00:00 (procedure) [code = [facility] 54667882] Future Scheduled 2021-12-[address] [facility] 00:00:00 (procedure) [code = [facility] 50333345] Future Scheduled 2021-12-[address] [facility] 00:00:00 (procedure) [code = [facility] 57142451] Future Scheduled 2021-12-[address] [facility] 00:00:00 (procedure) [code = [facility] 23514208] Future Scheduled 2021-12-[address] [facility] 00:00:00 (procedure) [code = [facility] 64036358] Future Scheduled 2021-12-[address] [facility] 00:00:00 (procedure) [code = [facility] 01512105] Future Scheduled [address] [facility] Test 00:00:00 aneurysm screening Medical C enter (procedure) [code = 634203161] Future Scheduled 2021 PNEUMOCOCCAL 65+ Y[facility] Test 00:00:00 (2 - PPSV23 or PCV20) [facility] [code = PNEUMOCOCCAL 65+ YRS (2 - PPSV23 or PCV20)] Future Scheduled [address] [facility] Test 00:00:00 aneurysm screening Medical C enter (procedure) [code = 257766301] Future Scheduled 2021 PNEUMOCOCCAL 65+ Y[facility] Test 00:00:00 (2 - PPSV23 or PCV20) [facility] [code = PNEUMOCOCCAL 65+ YRS (2 - PPSV23 or PCV20)] Future Scheduled 2021 PNEUMOCOCCAL 65+ Y[facility] 00:00:00 (2 - PPSV23 or PCV20) [facility] Center [code = PNEUMOCOCCAL 65+ YRS (2 - PPSV23 or PCV20)] Future Scheduled 2021 PNEUMOCOCCAL 65+ Y[facility] 00:00:00 (2 - PPSV23 or PCV20) [facility] Center [code = PNEUMOCOCCAL 65+ YRS (2 - PPSV23 or PCV20)] Future Scheduled 2021 PNEUMOCOCCAL 65+ Y[facility] 00:00:00 (2 - PPSV23 or PCV20) [facility] Center [code = PNEUMOCOCCAL 65+ YRS (2 - PPSV23 or PCV20)] Future Scheduled 2021 Imm Pneumococcal 65+ [facility] 00:00:00 (1 - PCV) [code = Imm Pneumococcal 65+ (1 - PCV)] Future Scheduled 2021 PNEUMOCOCCAL 65+ YRS [facility] Test 00:00:00 (2 - PPSV23 if Medical Cente r available, else PCV20) [code = PNEUMOCOCCAL 65+ YRS (2 - PPSV23 if available, else PCV20)] Future Scheduled 2021 Imm Pneumococcal 65+ [facility] 00:00:00 (1 - PCV) [code = Imm Pneumococcal 65+ (1 - PCV)] Future Scheduled 2021 Imm Pneumococcal 65+ [facility] 00:00:00 (1 - PCV) [code = Imm Pneumococcal 65+ (1 - PCV)] Future Scheduled 2021 Imm Pneumococcal 65+ [facility] 00:00:00 (1 - PCV) [code = Imm Pneumococcal 65+ (1 - PCV)] Future Scheduled 2021 Imm Pneumococcal 65+ [facility] 00:00:00 (1 - PCV) [code = Imm Pneumococcal 65+ (1 - PCV)] Future Scheduled 2021 Imm Pneumococcal 65+ [facility] 00:00:00 (1 - PCV) [code = Imm Pneumococcal 65+ [...] RISK Medical C enter SCREENING] Future Scheduled 2021-04-02 COVID-19 VACCINE ([facility] Booster for Pfizer Medical C enter series) [code = COVID-19 VACCINE (4 - Booster for Pfizer series)] Future Scheduled 2021-02-26 IMM Influenza Seasonal H [...] 2006 SHINGLES VACCINES ([address] [facility] 00:00:00 of 2) [code = SHINGLES Medic al Center VACCINES (1 of 2)] Future Scheduled 2006 SHINGLES VACCINES ([address] [facility] 00:00:00 of 2) [code = SHINGLES Medic al Center VACCINES (1 of 2)] Future Scheduled 2006 SHINGLES VACCINES ([address] [facility] 00:00:00 of 2) [code = SHINGLES Medic al Center VACCINES (1 of 2)] Future Scheduled 2006 SHINGLES VACCINES ([address] [facility] 00:00:00 of 2) [code = SHINGLES Medic al Center VACCINES (1 of 2)] Future Scheduled 2006 SHINGLES VACCINES ([address] [facility] 00:00:00 of 2) [code = SHINGLES Medic al Center VACCINES (1 of 2)] Future Scheduled 2006 SHINGLES VACCINES ([address] [facility] 00:00:00 of 2) [code = SHINGLES Medic al Center VACCINES (1 of 2)] Future Scheduled 2006 [facility]00 malignant neoplasm of colon (procedure) [code = 494639845] Future Scheduled 2006 SHINGLES VACCINES ([address] [facility] 00:00:00 of 2) [code = SHINGLES Medic al Center VACCINES (1 of 2)] Future Scheduled 2006 [facility]:00 malignant neoplasm of colon (procedure) [code = 880857949] Future Scheduled 2006 [facility] 00:[facility]:00 malignant neoplasm of colon (procedure) [code = 190037463] Future Scheduled 2006 [facility] 00:[facility]:00 malignant neoplasm of colon (procedure) [code = 424871305] Future Scheduled 2006 [facility] 00:[facility]:00 malignant neoplasm of colon (procedure) [code = 491963896] Future Scheduled 2006 [facility] 00:[facility]:00 malignant neoplasm of colon (procedure) [code = 024944348] Future Scheduled 2006 [facility] 00:[facility]:00 malignant neoplasm of colon (procedure) [code = 566177152] Future Scheduled 1961 COVID-19 Vaccine (1) [facility] [...] Vaccine (#1)] Future Scheduled [address] [facility] 00:00:00 (combo) [code = CT Medical C enter Colonography (combo)] Future Scheduled [address] [facility] 00:00:00 malignant [facility]oplasm [facility] Center colon (procedure) [code = 363471176] Future Scheduled [address] [facility] 00:00:00 malignant neoplasm of [facility] Center colon (procedure) [code = 256658376] Future Scheduled 1956 Sigmoidoscopy [[facility]] Medical Kindrae r Future Scheduled [address] [facility] 00:00:00 (combo) [code = CT Medical C enter Colonography (combo)] Future Scheduled [address] [facility] 00:00:00 malignant neoplasm of [facility] Center colon (procedure) [code = 215664904] Future Scheduled [address] [facility] 00:00:00 malignant neoplasm of [facility] Center colon (procedure) [code = 038706494] Future Scheduled 1956 Sigmoidoscopy [facility]code [facility]oscopy] Medical Kindrae r Future Scheduled [address] [facility] 00:00:00 (combo) [code = CT Medical C enter Colonography (combo)] Future Scheduled [address] [facility] 00:00:00 malignant neoplasm of [facility]ica [facility] Center colon (procedure) [code = 614011819] Future Scheduled [address] [facility] 00:00:00 malignant neoplasm of [facility]ica [facility] Center colon (procedure) [code = 370090239] Future Scheduled 1956 Sigmoidoscopy [facility]] Medical Kindrae r Future Scheduled [address] [facility] 00:00:00 (combo) [code = CT Medical C enter Colonography (combo)] Future Scheduled [address] [facility] 00:00:00 malignant neoplasm of [facility]ica [facility] Center colon (procedure) [code = 004315632] Future Scheduled [address] [facility] 00:00:00 malignant neoplasm of [facility]ica [facility] Center colon (procedure) [code = 278171199] Future Scheduled 1956 Sigmoidoscopy [facility]] Medical Cente r Future Scheduled [address] [facility] 00:00:00 (combo) [code = CT Medical C enter Colonography (combo)] Future Scheduled [address] [facility] 00:00:00 malignant neoplasm of [facility] Center colon (procedure) [code = 579889151] Future Scheduled [address] [facility] 00:00:00 malignant neoplasm of [facility]ica [facility] Center colon (procedure) [code = 463405265] Future Scheduled 1956 Sigmoidoscopy [facility] S[facility]oscopy] Medical Nahomi arita Future Scheduled [address] [facility] 00:00:00 (combo) [code = CT Medical C enter Colonography (combo)] Future Scheduled [address] [facility] 00:00:00 malignant neoplasm of [facility]ica [facility] Center colon (procedure) [code = 159219588] Future Scheduled [address] [facility] 00:00:00 malignant neoplasm of [facility] Center colon (procedure) [code = 622992381] Future Scheduled 1956 Sigmoidoscopy [facility]code [facility]] Medical Nahomi arita Future Scheduled 1956 Fluoride Varnish [facility] = Fluoride Varnish] Future Scheduled 1956 Fluoride Varnish [facility] 00[facility]00:00 = Fluoride Varnish] Future [facility]ment 2022[facility]08-17 [facility] Encounters Start End Encounter Admission Attending Care Care Encounter Source Date/Time Date/Time Type Type Clinicians Facility Department ID 2021-03-27 Emergency [facility] [id number] [facility] 20:25:53 ity [facility] 2019-12-24 Inpatient ER JOSÉ ANTONIO MYERS General Med [id number] [facility] 16:51:00 JOSH 2022-08-31 2022-08-31 Outpatient EL [facility] [id number] [facility] 00:00:00 00:00:00 2022-08-312022-08-31 Outpatient [place]ING [place], [facility] [id number] [facility] 00:00:00 00:00:00 [facility] 2022-08-17 2022-08-[address] [facility] [id number] SLE 00:00:00 00:00:00 2022-08-17 2022-08-17 Outpatient PING [place], [facility] [id number] SLE 00:00:00 00:00:00 [facility] 2022-08-17 2022-08-17 Outpatient PING [place], [facility] [id number] SLE 00:00:00 00:00:00 [facility] 2022-08-02 2022-08-[address]1 [id number] Methodi 12:00:00 12:00:00 Visit Kostas AnthonyRandolph 47164.1.[address] 3.430.2.7 Hospit a .3.438257 l .8 2022-08-02 2022-08-02 Travel 1.2.840.1 1.2.083.223 [id number] Methodi 00:00:00 00:00:[address] 3.430.2.7 0.2.7.3.698 Ho spita .3.172013 084.8 l .8 2022-08-02 2022-08-02 Outpatient [facility] [id number] [place] 00:00:00 00:00:[address] 2022-08-02 2022-08-02 Outpatient [facility] [id number] [place] 00:00:00 00:00:[address] SAYED [address] 2022-07-26 2022-07-26 Travel 1.2.840.1 1.2.658.311 [id number] [id number] Methodi 00:00:00 00:00:[address] 3.430.2.7 0.2.7.3.698 Ho spita .3.923002 084.8 l .8 2022-07-19 2022-07-19 Travel 1.2.840.1 1.2.107.353 9117 [id number] Methodi 00:00:00 00:00:[address] 3.430.2.7 0.2.7.3.698 Ho spita .3.260228 084.8 l .8 2022-07-15 2022-07-15 Travel 1.2.840.1 1.2.462.249 6158 [id number] Methodi 00:00:00 00:00:[address] 3.430.2.7 0.2.7.3.698 Ho spita .3.244405 084.8 l .8 2022-06-08 2022-06-[facility] [id number] 00:00[facility]00 00:00:00 [facility] 2022-06-08 2022-06-[address] [facility] [id number] 00:00:00 00:00:00 [facility] 2022-06-08 2022-06-[address] [facility] [id number] 00:00:00 00:00:00 [facility] 2022-06-08 2022-06-[address] [facility] [id number] 00:00:00 00:00:00 [facility] 2022-06-02 2022-06-02 [facility] [id number] 00:00:00 00:00:00 [facility] 2022-06-02 2022-06-02 [facility] [id number] 00:00:00 00:00:00 [facility] 2022-06-02 2022-06-[address] [facility] [id number] 00:00:00 00:00:00 [facility] 2022-06-02 2022-06-02 [facility] [id number] 00:00:00 00:00:00 [facility] 2022-06-01 2022-06-01 Outpatient [place] [place] [facility] [id number] SLE 09:46:56 11:05:10 [facility] 2022-06-01 2022-06-[address] [facility] [id number] 09:30:00 11:05:10 Visit [facility] 2022-06-01 2022-06-01 [facility] Padmini [facility] [id number] 09:30:00 11:05:10 Visit [facility] 2022-06-01 2022-06-01 [facility] [id number] 00:00:00 00:00:00 Only [facility] 2022-06-01 2022-06-01 [facility] [id number] 00:00:00 00:00:00 Only [facility] 2022-05-18 2022-05-18 [facility] [id number] 10:14:54 23:59:00 Encounter [facility] 2022-05-18 2022-05-18 [facility] [id number] 10:14:54 23:59:00 Encounter [facility] 2022-05-18 2022-05-18 Outpatient [place] SLECarmine SLE [id number] SLE 10:14:54 23:59:00 [facility] 2022-05-18 2022-05-18 [facility] [id number] 10:14:09 23:59:00 Encounter [facility] 2022-05-18 2022-05-18 [facility]admini [facility] [id number] 10:14:09 23:59:00 Encounter [facility] 2022-05-18 2022-05-18 Outpatient ROLA GREENFIELD SLE [id number] SLE 10:14:09 23:59:00 [facility] 2022-05-18 2022-05-[address] [facility] [id number] 10:45:00 10:55:00 Only [facility] 2022-05-18 2022-05-[address] [facility] [id number] 10:45:00 10:55:00 Only [facility] 2022-05-18 2022-05-18 Outpatient EL SLE SLE [id number] [facility] 09:40:39 09:40:39 2022-05-11 2022-05-11 Outpatient EL SLE SLE [id number] [facility] 00:00:00 00:00:00 2022-04-28 2022-04-[address] [facility] [id number] 00:00:00 00:00:00 [facility] 2022-04-28 2022-04-[address] [facility] [id number] 00:00:00 00:00:00 [facility] 2022-04-27 2022-04-27 Outpatient EL SLE SLE [id number] [facility] 00:00:00 00:00:00 2022-04-27 2022-04-[address] [facility] [id number] 00:00:00 00:00:00 Only [facility] 2022-04-27 2022-04-[address] [facility] [id number] 00:00:00 00:00:00 Only [facility] 2022-04-25 2022-04-25 [facility] [id number] 15:00:00 15:00:00 Encounter [facility] 2022-04-25 2022-04-25 [facility] [id number] 15:00:00 15:00:00 Encounter [facility] 2022-04-25 2022-04-25 [facility] [id number] 14:00:00 14:00:00 Encounter [facility] 2022-04-25 2022-04-25 [facility] [id number] 14:00:00 14:00:00 Encounter [facility] 2022-04-25 2022-04-25 Outpatient [place]ING [place], SLE SLE [id number] [facility] 00:00:00 00:00:00 [facility] 2022-04-25 2022-04-25 Outpatient [place]ING [place], [facility] [id number] [facility] 00:00:00 00:00:00 [facility] 2022-04-25 2022-04-25 Outpatient [place]ING [place], [facility] [id number] [facility] 00:00:00 00:00:00 [facility] 2022-04-25 2022-04-25 Documentat [facility] [id number] 00:00:00 00:00:00 [facility] 2022-04-25 2022-04-25 Documentat [facility] [id number] 00:00:00 00:00:00 [facility] 2022-04-12 2022-04-12 Travel 1.2.840.1 1.2.103.903 [id number] Methodi 00:00:00 00:00:[address] 3.430.2.7 0.2.7.3.698 Ho spita .3.241570 084.8 l .8 2022-04-08 2022-04-08 Outpatient [facility] [id number] [facility] 00:00:00 00:00:00 2022-04-08 2022-04-08 Outpatient [place] SLE SLE [id number] [facility] 00:00:00 00:00:00 [facility] 2022-04-08 2022-04-08 Outpatient [facility] [id number] [facility] 00:00:00 00:00:00 [facility] 2022-04-08 2022-04-08 [facility] [id number] 00:00:00 00:00:00 [facility] 2022-04-08 2022-04-08 Outside [facility] [id number] 00:00:00 00:00:00 Orders [facility] 2022-04-08 2022-04-[address] [facility] [id number] 00:00:00 00:00:00 Orders [facility] 2022-04-08 2022-04-[address] [facility] [id number] 00:00:00 00:00:00 [facility] 2022-04-08 2022-04-08 [facility] [id number] 00:00:00 00:00:00 Orders [facility] 2022-04-08 2022-04-08 [address] [facility] [id number] 00:00:00 00:00:00 Orders [facility] 2022-04-07 2022-04-07 [facility] [id number] 00:00:00 00:00:00 [facility] 2022-04-07 2022-04-07 [facility] [id number] 00:00:00 00:00:00 [facility] 2022-04-06 2022-04-06 Maxineat [facility] [id number] 00:00:00 00:00:00 [facility] 2022-04-06 2022-04-06 Maxineat [facility] [id number] 00:00:00 00:00:00 [facility] 2022-04-05 2022-04-05 Travel 1.2.840.1 1.2.248.269 [id number] Methodi 00:00:00 00:00:[address] 3.430.2.7 0.2.7.3.698 Ho spita .3.541929 084.8 l .8 2022-03-29 2022-03-29 [facility] [id number] 00:00:00 00:00:00 [facility] 2022-03-29 2022-03-29 Rios [facility] [id number] [facility] 00:00:00 00:00:00 [facility] 2022-03-28 2022-03-28 Travel 1.2.840.1 1.2.518.935 [id number] Methodi 00:00:00 00:00:[address] 3.430.2.7 0.2.7.3.698 Ho spita .3.728990 084.8 l .8 2022-03-23 2022-03-23 Outpatient EL SLE [facility] [id number] [facility] 00:00:00 00:00:00 2022-03-18 2022-03-[address] [facility] [id number] 00:00:00 00:00:00 [facility] 2022-03-18 2022-03-[address] [facility] [id number] 00:00:00 00:00:[address] [facility] 2022-03-09 2022-03-09 Outpatient EL SLE SLE [id number] SLE 00:00:00 00:00:00 2022-03-09 2022-03-09 Outpatient [place]ING [place], SLE SLE [id number] SLE 00:00:00 00:00:00 [facility] 2022-03-09 2022-03-09 Outpatient PING CARRASCORI, [facility] [id number] SLE 00:00:00 00:00:00 [facility] 2022-03-04 2022-03-[address] [facility] [id number] 00:00:00 00:00:00 [facility] 2022-03-04 2022-03-[address] [facility] [id number] 00:00:00 00:00:00 [facility] 2022-02-28 2022-02-28 Office Jewelsashish Kostas Kina 1.2.840.1 [id number] Methodi 09:15:00 11:16:48 Visit Zehra Ruiz 19194.1.[address] 3.430.2.7 Hospit a .3.136387 l .8 2022-02-28 2022-02-28 Travel 1.2.840.1 1.2.243.191 [id number] [id number] Methodi 00:00:00 00:00:[address] 3.430.2.7 0.2.7.3.698 Ho spita .3.654747 084.8 l .8 2022-02-25 2022-02-25 Travel 1.2.840.1 1.2.378.635 0163 [id number] Methodi 00:00:00 00:00:[address] 3.430.2.7 0.2.7.3.698 Ho spita .3.502886 084.8 l .8 2022-02-25 2022-02-25 [id number] [facility] 00:[facility]00 00:00:00 [facility] 2022-02-25 2022-02-25 [facility] [id number] [facility] 00:00:00 00:00:00 [facility] 2022-02-22 2022-02-22 Travel 1.2.840.1 1.2.444.470 1039 [id number] Methodi 00:00:00 00:00:[address] 3.430.2.7 0.2.7.3.698 Ho spita .3.188601 084.8 l .8 2022-02-16 2022-02-16 Travel 1.2.840.1 1.2.922.461 3145 [id number] Methodi 00:00:00 00:00:[address] 3.430.2.7 0.2.7.3.698 Ho spita .3.154149 084.8 l .8 2022-02-01 2022-02-01 [facility] [id number] [facility] 00[facility]00 [facility] 2022-02-01 2022-02-01 [facility] [id number] [facility] 00:00:00 [facility] 2022-01-21 2022-01-[address] [facility] [id number] 00:[facility] 00:00:00 [facility] 2022-01-21 2022-01-[address] [facility] [id number] 00:[facility] 00:00:00 [facility] 2022-01-18 2022-01-[address] [facility] [id number] 00:00[facility]00 00:00:00 [facility] 2022-01-18 2022-01-[address] [facility] [id number] 00:[facility]00 00:00:00 [facility] 2022-01-17 2022-01-17 [facility]carla [facility] [id number] 00:00[facility] 00:00:00 [facility] 2022-01-17 2022-01-17 Documentcarla Irvin, [facility] [id number] 00:[facility] 00:00:00 [facility] 2022-01-13 2022-01-13 Document Ramirez, [facility] [id number] 00:00[facility]00 00:00:00 [facility] 2022-01-13 2022-01-13 Document Guzmán, [facility] [id number] 00:00[facility]00 00:00:00 [facility] 2022-01-10 2022-01-10 Documentcarla Ordonezado, [facility] [id number]00 00:00:00 [facility] 2022-01-10 2022-01-10 Document Steinberg, [facility] [id number] 00:00:00 00:00:00 [facility] 2022-01-07 2022-01-07 [facility] [id number] 00:00:00 00:00:00 [facility] 2022-01-07 2022-01-07 [facility] [id number] 00:00:00 00:00:00 [facility] 2022-01-04 2022-01-04 Outpatient [facility] [place] [facility] [id number] [facility] 11:53:22 23:59:00 [facility] 2022-01-04 2022-01-04 [facility] [id number] 11:53:22 23:59:00 Encounter [facility] 2022-01-04 2022-01-04 [facility] [id number] 11:53:22 23:59:00 Encounter [facility] 2021-12-30 2021-12-30 Travel 1.2.840.1 1.2.749.129 [id number] Methodi 00:00:00 00:00:[address] 3.430.2.7 0.2.7.3.698 Ho spita .3.896965 084.8 l .8 2021-12-26 2021-12-26 Emergency [facility] [id number] Univers 15:39:00 18:19:00 FELISHA schmitt [facility] 2021-12-26 2021-12-26 [facility] 1.2.573.617 [id number] Univers 15:39:00 18:19:00 Felisha VENEGAS 350.1.13.10 i [facility] 4.2.7.2.686 [facility] [id number] [place] [address] [place] 2021-12-23 2021-12-23 [facility]at [facility] [id number] 00:00:00 00:00:00 ion [facility] 2021-12-23 2021-12-[address] [facility] [id number] 00:00:00 00:00:00 Only [facility] 2021-12-23 2021-12-[address] [facility] [id number] 00:00:00 00:00:00 [facility] 2021-12-23 2021-12-[address] [facility] [id number] 00:00:00 00:00:00 Only [facility] 2021-12-22 2021-12-[address] [facility] [id number] 11:00:00 11:36:33 Visit [facility] 2021-12-22 2021-12-[address] [facility] [id number] 11:00:00 11:36:33 Visit [facility] 2021-12-22 2021-12-22 Outpatient [facility] [place] SLE [id number] SLE 10:31:24 11:36:33 [facility] 2021-12-22 2021-12-[address] [facility] [id number] 00:00:00 00:00:00 [facility] 2021-12-22 2021-12-22 Rios [facility] [id number] 00:00:00 00:00:00 [facility] 2021-12-22 2021-12-[address] [facility] [id number] 00:00:00 00:00:00 [facility] 2021-12-22 2021-12-[address] [facility] [id number] 00:00:00 00:00:00 [facility] 2021-12-21 2021-12-[address] [facility] [id number] 00:00:00 00:00:00 Only [facility] 2021-12-21 2021-12-[address] [facility] [id number] 00:00:00 00:00:00 Only [facility] 2021-12-21 2021-12-[address] [facility] [id number] 00:00:00 00:00:00 Only [facility] 2021-12-21 2021-12-21 [facility] Idris [facility] [id number] 00:00:00 00:00:00 Only [facility] 2021-12-20 2021-12-20 Document [facility] [id number] 00:00:00 00:00:00 [facility] 2021-12-20 2021-12-20 [facility] [id number] 00:00:00 00:00:00 [facility] 2021-12-16 2021-12-16 Rios [facility] [id number] 00:00:00 00:00:00 [facility] 2021-12-16 2021-12-16 [facility] [id number] 00:00:00 00:00:00 [facility] 2021-12-09 2021-12-09 [facility] [id number] 00:00:00 00:00:00 [facility] 2021-12-09 2021-12-09 [facility] [id number] 00:00:00 00:00:00 [facility] 2021-12-08 2021-12-08 Outpatient [facility] SLE [id number] [facility] 00:00:00 00:00:00 2021-12-06 2021-12-06 Outpatient PING CARRASCOFAITH SLE SLE [id number] [facility]H 09:26:33 23:59:00 [facility] 2021-12-06 2021-12-06 [facility] [id number] 09:26:33 23:59:00 [facility] 2021-12-06 2021-12-06 [facility] [id number] 09:26:33 23:59:00 Encounter [facility] 2021-12-06 2021-12-06 [facility] [id number] 13:40:00 13:50:00 Only [facility] 2021-12-06 2021-12-06 Orders [facility] [id number] 13:40:00 13:50:00 Only [facility] 2021-12-06 2021-12-06 Outpatient PING SLE SLE [id number] SLEH 13:38:35 13:38:35 2021-12-06 2021-12-06 Outpatient [facility] SLE [id number] [facility] 09:25:54 09:25:54 [facility] 2021-12-06 2021-12-06 [facility] [id number] 09:25:54 09:25:54 Encounter [facility] 2021-12-06 2021-12-06 [facility] [id number] 09:25:54 09:25:54 Encounter [facility] 2021-12-06 2021-12-06 Outpatient PING [place] [facility] [id number] SLE 09:25:37 09:25:37 [facility] 2021-12-06 2021-12-06 [facility] [id number] 09:25:37 09:25:37 Encounter [facility] 2021-12-06 2021-12-06 [facility] [id number] 09:25:37 09:25:37 Encounter [facility] 2021-12-06 2021-12-[address] [facility] [id number] 00:00:00 00:00:00 [facility] 2021-12-06 2021-12-06 Documentat Steinberg, [facility] [id number] 00:00:00 00:00:00 [facility] 2021-11-25 2021-11-25 Outpatient EL SLE SLE [id number] [facility]H 00:00:00 00:00:00 2021-11-25 2021-11-25 Outpatient [place]ING [place], SLE SLEH [id number] [facility] 00:00:00 00:00:00 [facility] 2021-11-25 2021-11-25 Outpatient [place]ING [place], SLE SLEH [id number] [facility] 00:00:00 00:00:00 [facility] 2021-11-25 2021-11-25 Outpatient [place] SLE SLE [id number] [facility] 00:00:00 00:00:00 [facility] 2021-11-08 2021-11-08 Documentat Guzmán, [facility] [id number] 00:00[facility]00 00:00:00 [facility] 2021-11-08 2021-11-08 Documentat Guzmán, [facility] [id number] 00:00:00 00:00:00 [facility] 2021-11-08 2021-11-08 Documentat Guzmán, [facility] [id number] 00:00:00 00:00:00 [facility] 2021-11-08 2021-11-08 Documentat Guzmán, [facility] [id number] 00:00:00 00:00:00 [facility] 2021-10-22 2021-10-22 [facility] [id number] Devoted 09:00:00 09:00:00 [id number] [facility] 2021-09-30 2021-09-30 Documentat Guzmán, [facility] [id number] 00:00:00 00:00:00 [facility] 2021-09-30 2021-09-[address] [facility] [id number] 00:00:00 00:00:00 [facility] 2021-09-28 2021-09-[address] [facility] [id number] 00:00:00 00:00:00 [facility] 2021-09-28 2021-09-[address] [facility] [id number] 00:00:00 00:00:00 [facility] 2021-09-08 2021-09-08 Outpatient EL SERGIORI, SLE SLE [id number] SLE 09:55:52 10:29:39 [facility] 2021-09-08 2021-09-[address] [facility] [id number] 09:30:00 10:29:39 Visit [facility] 2021-09-08 2021-09-[address] [facility] [id number] 09:30:00 10:29:39 Visit [facility] 2021-09-08 2021-09-[address] [facility] [id number] 00:00:00 00:00:00 Only [facility] 2021-09-08 2021-09-[address] [facility] [id number] 00:00:00 00:00:00 Only [facility] 2021-09-06 2021-09-[address] [facility] [id number] 00:00:00 00:00:00 [facility] 2021-09-06 2021-09-[address] [facility] [id number] 00:00:00 00:00:00 [facility] 2021-09-02 2021-09-[address] [facility] [id number] 00:00:00 00:00:00 [facility] 2021-09-02 2021-09-02 [facility] [id number] 00:00:00 00:00:00 [facility] 2021-08-30 2021-08-30 Document [facility] [id number] 00:00:00 00:00:00 [facility] 2021-08-30 2021-08-30 [facility] [id number] 00:00:00 00:00:00 [facility] 2021-08-30 2021-08-30 [facility] [id number] 00:00:00 00:00:00 [facility] 2021-08-30 2021-08-30 [facility] [id number] 00:00:00 00:00:00 [facility] 2021-08-26 2021-08-26 Outpatient PING [place], SLE SLE [id number] SLE 08:46:32 23:59:00 [facility] 2021-08-26 2021-08-26 [facility] [id number] 08:46:32 23:59:00 Encounter [facility] 2021-08-26 2021-08-26 [facility] [id number] 08:46:32 23:59:00 Encounter [facility] 2021-08-26 2021-08-26 [facility] Padmini [facility] [id number] 09:00:00 09:10:00 Only [facility] 2021-08-26 2021-08-[address] [facility] [id number] 09:00:00 09:10:00 Only [facility] 2021-08-26 2021-08-26 Out[facility] [id number] [facility]H 08:42:22 08:45:00 [facility] 2021-08-26 2021-08-[address] [facility], [facility] [id number] 08:42:22 08:45:00 Encounter [facility] 2021-08-26 2021-08-26 [facility] [id number] 08:42:22 08:45:00 Encounter [facility] 2021-08-26 2021-08-26 Outpatient EL SLE SLE [id number] SLEH 08:20:55 08:20:55 2021-08-26 2021-08-26 Outpatient EL SLE SLEH [id number] [facility]H 00:00:00 00:00:00 2021-08-16 2021-08-16 Documentat Guzmán, [facility] [id number] 00:00:00 00:00:00 [facility] 2021-08-16 2021-08-16 Documentat Guzmán, [facility] [id number] 00:00:00 00:00:00 [facility] 2021-08-16 2021-08-16 Documentat Guzmán, [facility] [id number] 00:00:00 00:00:[address]on [facility] 2021-08-16 2021-08-16 Documentat Guzmán, [facility] [id number] 00:00:00 00:00:00 devon [facility] 2021-08-05 2021-08-[address] [facility] [id number] 00:00:00 00:00:00 ion [facility] 2021-08-02 2021-08-[address] [facility] [id number] 00:00:00 00:00:00 Only [facility] 2021-07-28 2021-07-28 Outpatient EL PADMINI, SLE SLEH [id number] [facility]H 09:06:24 09:58:24 [facility] 2021-07-28 2021-07-[address] [facility] [id number] 09:00:00 09:58:24 [facility] 2021-07-27 2021-07-27 Documentat Guzmán, [facility] [id number] 00:00:00 00:00:00 [facility] 2021-07-27 2021-07-[address] [facility] [id number] 00:00:00 00:00:00 Only [facility] 2021-07-26 2021-07-26 Documentcarla Guzmán, [facility] [id number] 00:00:00 00:00:00 [facility] 2021-07-26 2021-07-26 Documentcarla [facility] [id number] 00:00:00 00:00:00 [facility] 2021-07-14 2021-07-14 Outpatient EL SLE SLEH [id number] [facility]H 00:00:00 00:00:00 2021-07-12 2021-07-[address] [facility] [id number] 00:00:00 00:00:00 [facility] 2021-07-07 2021-07-07 Outpatient EL SLEH SLEH [id number] [facility] 00:00:00 00:00:00 2021-07-07 2021-07-[address] [facility] [id number] 00:00:00 00:00:00 [facility] 2021-06-28 2021-06-[address] [facility] [id number] 00:00:00 00:00:00 [facility] 2021-06-27 2021-06-[address] [facility] [id number] 00:00:00 00:00:00 Shahnaz Samantha [facility] 2021-05-24 2021-05-24 [facility] 1.2.840.114 [id number] Univers 00:00:00 00:00:00 Pearl VENEGAS 350.1.13.10 i [facility] 4.2.7.2.686 Brycelana jauregui LIBIA [id number] Ks dical NAL 044 [facility] 2021-05-14 2021-05-[address] [facility] [id number] 00:00:00 00:00:00 [facility] 2021-05-13 2021-05-[address] [facility] [id number] 00:00:00 00:00:00 [facility] 2021-05-12 2021-05-12 Outpatient [facility] SLE [id number] SLEH 00:00:00 00:00:00 2021-05-10 2021-05-10 Telephone Steinberg, [facility] [id number] 00:00:00 00:00:00 [facility] 2021-05-03 2021-05-[address] [facility] [id number] 00:00:00 00:00:00 [facility] 2021-04-29 2021-04-29 Outpatient [facility]ING [place]H [id number] [facility]H 10:09:55 23:59:00 AMBERLY 2021-04-29 2021-04-29 [facility] Padmini [facility] [id number] 10:09:55 23:59:00 Encounter Amberly Alexandre [facility] 2021-04-29 2021-04-[address] [facility] [id number] 12:00:00 12:10:00 Only [facility] 2021-04-29 2021-04-29 [facility]patient [facility] [id number] SLE 10:09:10 10:08:00 [facility] 2021-04-29 2021-04-29 [facility] [id number] 10:00:00 10:08:00 Encounter [facility] 2021-04-29 2021-04-29 Outpatient [facility] [id number] SLE 09:35:14 09:59:00 [facility] 2021-04-29 2021-04-29 [facility] [id number] 09:35:14 09:59:00 Encounter [facility] 2021-04-29 2021-04-29 Outpatient [facility] [id number] SLE 09:35:00 09:34:00 [facility] 2021-04-29 2021-04-29 [facility] [id number] 09:00:00 09:34:00 Encounter [facility] 2021-04-29 2021-04-29 Outpatient [facility] [id number] SLE 08:33:09 08:33:09 2021-04-29 2021-04-29 Outpatient [facility] [id number] SLE 00:00:00 00:00:00 [facility] 2021-04-02 2021-04-02 [facility]phone [facility] 1.2.840.114 [id number] [facility] 00:00:00 00:00:00 Pearl VENEGAS 350.1.13.10 aung Choudhury 4.2.7.2.686 Anyi REZA [id number] [address] 2021-04-01 2021-04-01 Emergency X [facility] ERT [id number] Univers 13:07:00 15:37:00 CHANDRAKANT schmitt [facility] 2021-04-01 2021-04-01 Emergency [facility] 1.2.732.000 [id number] Univers 13:07:00 15:37:00 Chandrakant VENEGAS 350.1.13.10 i ty [id number] [place] [id number] Raphine 2021-03-18 2021-03-[address] [facility] [id number] [facility] [address] 00:00:00 00:00:00 Only [facility] 2021-03-16 2021-03-16 [facility] 1.2.840.114 [id number] Univers 00:00:00 00:00:00 Pearl Venegas 350.1.13.10 i ty [place] [facility] [id number] [address] 2021-03-15 2021-03-15 [facility] 1.2.840.114 [id number] Univers 00:00:00 00:00:00 Pearl Venegas 350.1.13.10 i [place] [facility] [id number] [address] 2021-03-12 2021-03-12 [facility] [id number] [facility] [address] 12:16:00 15:05:00 Encounter [facility] 2021-03-12 2021-03-[address] [facility] [id number] [facility] 06:21:33 15:05:00 [facility] 2021-03-12 2021-03-[address] [facility] [id number] 00:00:00 00:00:00 [facility] 2021-03-10 2021-03-[address] [facility] [id number] 00:00:00 00:00:00 devon Murpyh [facility] 2021-03-10 2021-03-[address] [facility] [id number] 00:00:00 00:00:00 Only [facility] 2021-02-23 2021-02-[address] [facility] [id number] 09:28:20 23:59:00 Encounter Amberly Alexandre [facility] 2021-02-23 2021-02-23 Outpatient [facility] SLE [id number] SLE 00:00:00 23:59:00 [facility] 2021-02-23 2021-02-23 Outpatient SLE SLE [id number] SLEH 10:02:57 10:02:57 2021-02-23 2021-02-23 Outside Dipesh, [facility] [id number] 00:00:00 00:00:00 Orders [facility] 2021-02-05 2021-02-05 Outpatient Juan J GUIDRY [facility] [id number] Univers 10:50:00 10:50:00 TAM schmitt [facility] 2021-02-05 2021-02-05 Imm/Inj Nurse, Adc Pob Immunization [facility] 1.2.840.114 [id number] Univers 10:46:45 10:47:11 Visit Tam Guidry 350.1.13 .10 [facility] 4.2.7.2.686 Anyi Reza [id number] Ks dical [address] 2021-02-04 2021-02-04 Documentat [facility] [id number] 00:00:00 00:00:[address] [facility] 2021-02-04 2021-02-04 [facility]ios [facility] [id number] 00:00:00 00:00:00 [facility] 2021-02-04 2021-02-04 Rios [facility] [id number] 00:00:00 00:00:00 [facility] 2021-02-03 2021-02-03 [facility] Padmini [facility] [id number] 10:00:00 10:30:00 Visit [facility] 2021-02-03 2021-02-03 Outpatient SLEH SLEH [id number] [facility] 00:00:00 00:00:00 2021-02-03 2021-02-[address] [facility] [id number] 00:00:00 00:00:00 [facility] 2021-02-03 2021-02-[address] [facility] [id number] [facility] 00:[facility]00 00:00:00 [facility] 2021-02-03 2021-02-[address] [facility] [id number] [facility] 00:00[facility]00 00:00:00 Only [facility] 2021-02-02 2021-02-02 [facility] [id number] 00:[facility]00 00:00:00 [facility] 2021-01-28 2021-01-[address] [facility] [id number] [facility] 00:[facility] 00[facility]00:00 [facility] 2021-01-25 2021-01-[address] [facility] [id number] [facility] [facility] 00:[facility]00 00:00:00 [facility] [place] [facility] 2021-01-21 2021-01-21 [facility] [id number] 10:27:08 23:59:00 Encounter [facility] 2021-01-21 2021-01-[address] [facility] [id number] 10:27:00 10:27:00 Encounter [facility] 2021-01-21 2021-01-[address] [facility] [id number] 09:58:59 10:08:59 Only [facility] 2021-01-21 2021-01-21 Outpatient MARISAADERI, [facility] [id number] [facility] 00:00:00 00:00:00 [facility] 2021-01-21 2021-01-21 Outpatient DANILORI, [facility] [id number] [facility] 00:00:00 00:00:00 [facility] 2021-01-21 2021-01-21 Outpatient EL [facility] [id number] [facility] 00:00:00 00:00:00 2020-12-30 2020-12-30 Outpatient [facility] [id number] [facility] 00:00:00 00:00:00 2020-12-17 2020-12-17 Outpatient EL [facility] [id number] [facility] 00:00:00 00:00:00 2020-12-17 2020-12-17 Outpatient DANILORI, [facility] [id number] [facility] 00:00:00 00:00:00 [facility] 2020-12-17 2020-12-17 Outpatient DANILORI, [facility]H [facility] [id number] [facility] 00:00:00 00:00:00 [facility] 2020-12-02 2020-12-[address] [facility] [id number] [facility] 00[facility]00 [facility] 2020-11-26 2020-11-26 [facility] Padmini, [facility] [id number] 13:14:00 18:00:00 Encounter [facility] 2020-11-26 2020-11-26 Outpatient EL SLEH SLEH [id number] [facility] 00:00:00 00:00:00 2020-11-18 2020-11-[address] [facility] [id number] 00:00:00 00:00:00 [facility] 2020-11-16 2020-11-[address] [facility] [id number] 00:00[facility]00 00:00:00 [facility] 2020-11-16 2020-11-16 Telephone Emil, [facility] [id number] 00:[facility] 00:00:00 Anat [facility] 2020-11-10 2020-11-[address] [facility] [id number] 00:00[facility]00 00[facility]00[facility]00 [facility] 2020-11-05 2020-11-05 Documentat Ramirez, [facility] [id number] 00:00[facility]00 00:00:00 [facility] 2020-11-04 2020-11-04 Office System, [facility] [id number] 09:38:44 10:38:44 Visit Provider [facility] 2020-11-04 2020-11-04 Outpatient [facility] SLE [id number] [facility] 00:00:00 00:00:00 2020-10-28 2020-10-28 Office EL Padmini, [facility] [id number] 08:37:21 10:38:34 [facility] 2020-10-[facility] 2020-10-28 Outpatient EL SLE SLE [id number] [facility] 00:00:00 00:00:00 2020-10-28 2020-10-28 Outpatient SLE SLE [id number] [facility] 00:00:00 00:00:00 2020-10-28 2020-10-[address] [facility] [id number] 00:00:00 00:00:00 [facility] 2020-10-28 2020-10-[address] [facility] [id number] 00:00:00 00:00:00 [facility] 2020-10-27 2020-10-[address] [facility] [id number] 00:00:00 00:00:00 [facility] 2020-10-21 2020-10-21 Outpatient SLEH SLEH [id number] [facility] 00:00:00 00:00:00 2020-10-21 2020-10-21 [facility] 1.2.840.114 [id number] Univers 00:00:00 00:00:00 Pearl Venegas 350.1.13.10 [place] [phone] [place] dic[address] 2020-10-20 2020-10-20 [facility] [id number] 00:00:00 00:00:00 Only [facility] 2020-10-19 2020-10-19 [facility] [id number] 00:00:00 00:00:00 [facility] 2020-10-19 2020-10-19 Documentat [facility] [id number] 00:00:00 00:00:00 [facility] 2020-10-15 2020-10-15 Documentat [facility] [id number] 00:00:00 00:00:00 [facility] 2020-10-14 2020-10-14 Telemedici [facility] 1.2.840.114 [id number] Univers 11:21:55 11:27:44 ne Visit Pearl Venegas 350.1.13.10 [place] [phone] [address] 2020-10-14 2020-10-14 Outpatient R KIMBERLEY [facility] [id number] Univers 09:20:00 09:20:00 PEARL schmitt [facility] 2020-10-13 2020-10-13 [facility] 1.2.840.114 [id number] Univers 00:00:00 00:00:00 Pearl Venegas 350.1.13.10 [place] 4.2.7.2.686 Anyi jauregui Libia [phone] [address] 2020-10-12 2020-10-12 [facility] [id number] 00:00:00 00:00:00 ion Eddie [facility] 2020-10-08 2020-10-08 [facility] [id number] 09:30:00 23:59:00 Encounter [facility] 2020-10-08 2020-10-08 Orders [facility], [facility] [id number] 10:50:16 11:05:16 Only [facility] 2020-10-08 2020-10-08 [facility] [id number] 08:45:00 09:29:00 Encounter [facility] 2020-10-08 2020-10-08 Outpatient MARISAADERI, SLEH SLEH [id number] [facility] 00:00:00 00:00:00 [facility] 2020-10-08 2020-10-08 Outpatient EL MARISAADERI, [facility]H SLEH [id number] [facility] 00:00:00 00:00:00 [facility] 2020-10-08 2020-10-08 Outpatient SLEH SLEH [id number] [facility] 00:00:00 00:00:00 2020-10-08 2020-10-08 Outpatient EL MARISAADERI, [facility]H SLEH [id number] [facility] 00:00:00 00:00:00 [facility] 2020-10-08 2020-10-08 Outpatient KHADERI, SLEH SLEH [id number] [facility] 00:00:00 00:00:00 [facility] 2020-10-08 2020-10-08 Outpatient MARISAADERI, SLEH SLEH [id number] [facility] 00:00:00 00:00:00 [facility] 2020-10-08 2020-10-08 [facility] [id number] 00:00:00 00:00:00 Only [facility] 2020-09-21 2020-09-[address] [facility] [id number] 00:00:00 00:00:00 Only [facility] 2020-09-11 2020-09-[address] [facility] [id number] 00:00:00 00:00:00 [facility] 2020-09-21 2020-09-10 Inpatient [place], [facility] ENDO [id number] [facility] 07:00:00 11:10:[address] [place] [address] 2020-09-10 2020-09-[address] [facility] [id number] 00:00[facility]00 00:00[facility]00 [facility] 2020-09-03 2020-09-[address] [facility] [id number] 00:00:00 00:00:00 ion Samira Arita [facility] 2020-09-02 2020-09-[address] [facility] [id number] [facility] 00:[facility]00 00:00:00 devon Lindsey [facility] 2020-09-02 2020-09-[address] [facility] [id number] 00:00:00 00:00:00 Vicky [facility] 2020-09-01 2020-09-01 [facility] Ashish Dan [facility] [id number] 10:00:00 23:59:00 [facility] 2020-09-01 2020-09-01 Follow-Up EL Ruba [facility] [id number] 09:48:56 10:18:56 [facility] 2020-09-01 2020-09-01 Outpatient [facility] [id number] SLE 00:00:00 00:00:00 2020-09-01 2020-09-01 Outpatient JOSE FRANCISCO WHITEHEAD [facility] [id number] SLE 00:00:00 00:00:00 2020-09-01 2020-09-[address] [facility] [id number] 00:00:00 00:00:00 Vicky [facility] 2020-09-01 2020-09-[address] [facility] [id number] 00:00:00 00:00:00 ion Samira Arita [facility] 2020-08-31 2020-08-[address] [facility] [id number] 00:00:00 00:00:00 Marta Lindsey [facility] 2020-08-19 2020-08-19 Emergency [facility] 1.2.840.114 [id number] 07:35:00 10:07:00 Wendy Venegas 350.1.13.10 [place] 4.2.7.2.686 [place] [phone] [facility] 2020-08-19 2020-08-19 Emergency [facility] 1.2.840.114 [id number] [facility] 07:35:00 10:07:00 Wendy Venegas 350.1.13.10 [place] 4.2.7.2.686 [facility] [phone] [address] 2020-08-19 2020-08-19 Emergency X [facility] ERT [id number] [facility] 07:35:00 10:07:00 WENDY schmitt [facility] 2020-08-19 2020-08-19 Orders Doctor LICONA 1.2.840.114 [id number] 00:00:00 00:00:00 Only UnassignedTOY 350.1.13.10 [place] [facility] 4.2.7.2.686 [id number] 009 2020-08-19 2020-08-19 Orders Doctor LICONA 1.2.840.114 [id number] Univers 00:00:00 00:00:00 Only UnassignedTOY 350.1.13.10 [place] [facility] 4.2.7.2.686 Bryce [phone] [address] 2020-08-03 2020-08-03 [facility] 1.2.840.114 [id number] 00:00:00 00:00:00 Pearl Venegas 350.1.13.10 [place] 4.2.7.2.686 Professio [phone] nal 044 [facility] [address] 2020-08-03 2020-08-03 Refill [facility] 1.2.840.114 [id number] Univers 00:00:00 00:00:00 Pearl Venegas 350.1.13.10 [place] [phone] Me dical [facility] 044 [facility] 2020-07-19 2020-07-[address] [facility] [id number] 13:46:40 13:56:40 on Employee, German jauregui [facility] 2020-07-19 2020-07-19 Outpatient EL SLEH SLEH [id number] [facility] 00:00:00 00:00:00 2020-07-19 2020-07-[address] [facility] [id number] [facility] 00:00:00 00:00:00 ion [facility] 2020-07-18 2020-07-18 Outpatient EL SLEH SLEH [id number] [facility] 00:00:00 00:00:00 2020-06-28 2020-06-28 Outpatient SLEH SLEH [id number] [facility] 00:00:00 00:00:00 2020-06-25 2020-06-25 Emergency [facility] [id number] [id number] 17:04:00 23:09:00 Carolina Venegas 350.1.13.10 [place] 4.2.7.2.686 [place] [id number] 084 2020-06-25 2020-06-25 Emergency [facility], [facility] 1.2.741.331 [id number] [facility] 17:04:00 23:09:00 Carolina Venegas 350.1.13.10 [place] [phone] [facility] 084 Raphine 2020-06-25 2020-06-25 Orders Doctor MONAE 1.2.840.114 [id number] 00:00:00 00:00:00 Only Unassigned, TOY 350.1.13.10 [place] [facility] 4.2.7.2.686 [id number] 009 2020-06-25 2020-06-25 Orders Doctor MONAE 1.2.840.114 [id number] [facility] 00:00:00 00:00:00 Only Unassigned, TOY 350.1.13.10 [place]y [place] [facility] 4.2.7.2.686 Bryce as [phone] [address] 2020-06-22 2020-06-[facility] 1.2.840.114 [id number] 00:00:00 00:00:00 Pearl Venegas 350.1.13.10 [place] 4.2.7.2.686 Professio [phone] [address] 2020-06-22 2020-06-22 Refill [facility] 1.2.840.114 [id number] Univers 00:00:00 00:00:00 Pearl Venegas 350.1.13.10 i [place] [facility] [phone] Ks dical [address] 2020-03-13 2020-03-13 Outpatient EL SLE SLE [id number] [facility] 00:00:00 00:00:00 2020-03-13 2020-03-13 Outpatient SLEH SLEH [id number] [facility] 00:00:00 00:00:00 2020-03-13 2020-03-13 Outpatient JESSICA, SLE SLE [id number] [facility] 00:00:00 00:00:00 [facility] 2020-03-13 2020-03-13 Outpatient EL KHADERI, SLE SLEH [id number] [facility] 00:00:00 00:00:00 AMBERLY 2020-02-18 2020-02-18 Outpatient SLEH SLEH [id number] [facility] 00:00:00 00:00:00 2020-02-18 2020-02-18 Outpatient EL SLEH SLEH [id number] [facility]H 00:00:00 00:00:00 2020-02-18 2020-02-18 Outpatient SLEH SLEH [id number] [facility] 00:00:00 00:00:00 2020-02-05 2020-02-05 Outpatient SLEH SLEH [id number] [facility] 00:00:00 00:00:00 2020-02-05 2020-02-05 Outpatient KHADERI, SLEH SLEH [id number] [facility]H 00:00:00 00:00:00 AMBERLY 2020-02-05 2020-02-05 Outpatient SLEH SLEH [id number] [facility]H 00:00:00 00:00:00 2020-01-28 2020-01-28 Outpatient EL SLEH SLEH [id number] [facility] 00:00:00 00:00:00 2020-01-14 2020-01-14 Outpatient EL SLEH SLEH [id number] [facility]H 00:00:00 00:00:00 2019-09-11 2019-09-11 Telephone [facility] 1.2.840.114 [id number] 00:00:00 00:00:00 Pearl Venegas 350.1.13.10 [place] 4.2.7.2.686 Professio [phone] [address] 2019-09-11 2019-09-11 Telephone [facility] 1.2.840.114 [id number] Univers 00:00:00 00:00:00 Pearl Venegas 350.1.13.10 [place] [phone] [place] dical [address] 2019-08-20 2019-08-20 Outpatient SLEH SLEH [id number] [facility]H 00:00:00 00:00:00 [id number] 2019-02-08 2019-02-08 Orders Doctor MONAE 1.2.840.114 [id number] 00:00:00 00:00:00 Only Unassigned, TOY 350.1.13.10 [place] [facility] 4.2.7.2.686 [id number] 009 2019-02-08 2019-02-08 Orders Doctor MONAE 1.2.840.114 [id number] Univers 00:00:00 00:00:00 Only Unassigned, TOY 350.1.13.10 [place] [facility] [place] [facility] 4.2.7.2.686 Bryce as [phone] [address] 2019-01-31 2019-01-31 Orders Doctor MONAE 1.2.840.114 [id number] 00:00:00 00:00:00 Only Unassigned, TOY 350.1.13.10 [place] [facility] 4.2.7.2.686 [id number] 2019-01-31 2019-01-31 Orders Doctor MONAE 1.2.840.114 [id number] Univers 00:00:00 00:00:00 Only Unassigned, TOY 350.1.13.10 [facility] [facility] [place] [facility] 4.2.7.2.686 Bryce as [phone] [address] 2019-01-23 2019-01-23 Telephone Brenda Rod [facility] 1.2.840.114 [id number] 00:00:00 00:00:00 C Brandon 350.1.13.10 [place] 4.2.7.2.686 Professio [phone] [address] 2019-01-23 2019-01-23 Telephone Brenda Rod [facility] 1.2.840.114 [id number] Univers 00:00:00 00:00:00 C Brandon 350.1.13.10 [place] [phone] K[place] dical [address] 2019-01-21 2019-01-21 Office Brenda Rod [facility] 1.2.840.114 [id number] 15:52:08 16:26:09 Visit C Brandon 350.1.13.10 [place] 4.2.7.2.686 Professio [phone] [address] 2019-01-21 2019-01-21 Office Brenda Rod [facility] 1.2.840.114 [id number] [facility] 15:52:08 16:26:09 Visit C Brandon 350.1.13.10 [place] [phone] [place] dical nal 044 [facility] 2019-01-17 2019-01-17 Orders Doctor MONAE 1.2.840.114 [id number] 00:00:00 00:00:00 Only Unassigned, TOY 350.1.13.10 [place] [facility] 4.2.7.2.686 [id number] 2019-01-17 2019-01-17 Orders Doctor MONAE 1.2.840.114 [id number] Univers 00:00:00 00:00:00 Only Unassigned, TOY 350.1.13.10 [facility] [place] [facility] 4.2.7.2.686 Bryce as [phone] [address] 2019-01-07 2019-01-07 Brenda Amado [facility] 1.2.840.114 [id number] Univers 00:00:00 00:00:00 Yumiko Venegas 350.1.13.10 [place] [phone] Ks dical nal [address] [place] [address] 2019-01-07 2019-01-07 Orders Doctor MONAE 1.2.840.114 [id number] Univers 00:00:00 00:00:00 Only Unassigned, TOY 350.1.13.10 [facility] [place] [facility] 4.2.7.2.686 Bryce as [phone] [address] 2019-01-02 2019-01-02 Orders Doctor MONAE 1.2.840.114 [id number] 00:00:00 00:00:00 Only Unassigned, TOY 350.1.13.10 [place] [facility] 4.2.7.2.686 [id number] 2019-01-02 2019-01-02 Orders Doctor MONAE 1.2.840.114 [id number] Univers 00:00:00 00:00:00 Only Unassigned, TOY 350.1.13.10 [facility] [place] [facility] 4.2.7.2.686 Bryce as [phone] [address] 2019-01-02 2019-01-02 Refill Brenda Rod [facility] 1.2.840.114 [id number] Univers 00:00:00 00:00:00 C Brandon 350.1.13.10 [place] [phone] [address] 2018-12-28 2018-12-28 Orders Doctor MONAE 1.2.840.114 [id number] 00:00:00 00:00:00 Only Unassigned, TOY 350.1.13.10 [place] [facility] 4.2.7.2.686 [id number] 009 2018-12-28 2018-12-28 Orders Doctor MONAE 1.2.840.114 [id number] Univers 00:00:00 00:00:00 Only Unassigned, TOY 350.1.13.10 [facility] [place] [facility] 4.2.7.2.686 Bryce as [phone] [address] 2018-12-21 2018-12-21 Telephone Brenda Rod [facility] 1.2.840.114 [id number] Univers 00:00:00 00:00:00 C Brandon 350.1.13.10 [place] [phone] [address] 2018-12-17 2018-12-17 Orders Doctor MONAE 1.2.840.114 [id number] Univers 00:00:00 00:00:00 Only Unassigned, TOY 350.1.13.10 [facility] [place] [facility] 4.2.7.2.686 Bryce as [phone] [address] 2016-10-19 2016-10-19 Orders Doctor MONAE 1.2.840.114 [id number] 00:00:00 00:00:00 Only Unassigned, TOY 350.1.13.10 [place] [facility] 4.2.7.2.686 [id number] 2016-10-19 2016-10-19 Orders Doctor MONAE 1.2.840.114 [id number] Univers 00:00:00 00:00:00 Only Unassigned, TOY 350.1.13.10 [facility] [place] [facility] 4.2.7.2.686 Bryce as [phone] [place] [address] [address] 2016-10-13 2016-10-13 Orders Doctor MONAE 1.2.840.114 [id number] 00:00:00 00:00:00 Only Unassigned, TOY 350.1.13.10 [facility] [facility] 4.2.7.2.686 Bryce as [phone] [address] Results Test Description Test Time Test Comments Results Result [facility] e Comments CT, CHEST, 2022-05-22 REFERRING MD: WITHOUT CONTRAST 11:39:00 ANIL SALVADOR Unlisted Reason [facility]am [facility] Click Yes and CENTERName: [facility] Aldair Reason JON : 1955 Below->YesUnlis Sex: lisa [...] REFERRING MD: 14:59:00 ANIL MODESTO Unlisted Reason [facility] Click Yes and CENTER[facility]: [facility] Aldair Reason JON : 1955 Below->YesUnlis Sex: lisa [...] (test code = 1094) < ng/mL <10.0 [facility] ID - MITCHCBC W/PLT COUNT & AUTO [id number] 11:00:53 Test Item Value Reference Range Interpretation [...] (BEAKER) (test code = 2801) HEPATIC FUNCTION [id number] 11:00:04 Test Item Value Reference Range Interpretation [...] (test code = 28 U/L 6-55 347) [facility] ID - BETTE GBASIC METABOLIC [id number] 10:59:58 Test Item Value Reference Range Interpretation [...] not appl icable for dialysis patien ts [facility] ID - BETTE GPROTHROMBIN TIME/[id number] 10:51:01 Test Item Value Reference Range Interpretation Comments PROTIME (BEAKER) 16.9 seconds 11.9-14.2 H (test code = 759) INR (BEAKER) (test 1.46 See_Comment [Automat ed message] code = 370) The system [employer] generated this result transmitted ref erence range: <=5.90. The reference range was not used to int erpret this result as normal/abnormal . RECOMMENDED COUMADIN/WARFARIN INR THERAPY RANGESSTANDARD DOSE: 2.0 - 3.0 Includes: PROPHYLAXIS for venous thrombosis, systemic embolization; TREATMENT for venous thrombosis and/or pulmonary embolus.HIGH RISK: Target INR is 2.5-3.5 for patients with mechanical heart valves.Kipgftme2080-31-56 09:52:00 Test Item Value Reference Range Interpretation Comments Ferritin, Serum (test code = 2276-4) 16 ng/mL 24-380 L Lab Interpretation (test code = Abnormal 21327-9) [facility] with platelet count + automated [id number] 09:52:00 Test Item Value Reference Range Interpretation Comments WBC (test code = 7.2 See_Comment [Automated message] ) The system [employer] generated this result transmit lisa reference range : 3.8 - 10.8 Thousand /uL. The reference r mela was not used to interpret this result as normal/abnormal . RBC (test code = 789-8) 4.03 See_Comment L [Au tomated message] The system [employer] generated this result transmit lisa reference range [...] L [Aut omated message] ) The system [employer] generated this result transmit lisa reference range : 140 - 400 Thousand/ uL. The reference r mela was not used to interpret this result as normal/abnormal . MPV (test code = 7.5-12.5 Due to plat elet or 5813896) RBC variability in size or shapeth e result cannot b e reported accura tely. # Neutros (test code = 4284 See_Comment [Aut omated message] 20191222) The system [employer] generated this result transmit lisa reference range : 1,500 - 7,800 cells/uL. The reference range was not used to interpret this result as normal/abnormal . # Lymphs (test code = 1879 See_Comment [Auto mated message] 731-0) The system [employer] generated this result transmit lisa reference range : 850 - 3,900 cells/u L. The reference r mela was not used to interpret this result as normal/abnormal . # Monos (test code = 871 See_Comment [Autom ated message] ) The system [employer] generated this result transmit lisa reference range : 200 - 950 cells/uL. The reference range was not used to interpret this result as normal/abnormal . # Eos (test code = 108 See_Comment [Automat ed message] 1-2) The system [employer] generated this result transmit lisa reference range : 15 - 500 cells/uL. The reference range was not used to interpret this result as normal/abnormal . # Baso (test code = 58 See_Comment [Automa lisa message] 4-7) The system [employer] generated this result transmit lisa reference range [...] 20191218) Lab Interpretation (test Abnormal code = 09627-2) [facility], % sat. (without ferritin)2022-01-08 09:52:00 Test Item Value Reference Range Interpretation Comments Iron (test code = 21 See_Comment L [Automate d message] ) The system [employer] generated this result transmitted ref erence range: 50 - 180 mcg/dL. The ref erence range was not u sed to interpret this result as normal/abnor mal. Iron Bind.Cap.(TIBC) 309 See_Comment [Autom ated message] (test code = 4184864) The sy stem which generated this result transmitted ref erence range: 250 - 42 5 mcg/dL (calc). The reference range was not used to int erpret this result as normal/abnormal . Iron % Saturation (test 7 See_Comment L [Au tomated message] code = 0953637) The system [employer] [facility] generated this result transmitted ref erence range: 20 - 48 % (calc). The ref erence range was not u sed to interpret this result as normal/abnor mal. Lab Interpretation (test Abnormal code = 71444-8) [facility] Center[facility]ATE[facility] [id number] 09:52:00 Test Item Value Reference Range Interpretation Comments Platelet Estimate (test code = DECREASED ADEQUATE A 92184-6) Lab Interpretation (test code = Abnormal 22602-5) [facility] 09:52:00 Test Item Value Reference Range Interpretation Comments Ferritin, Serum (test code = 2276-4) 16 ng/mL 24-380 L Lab Interpretation (test code = Abnormal 24522-6) [facility] count + automated [id number] 09:52:00 Test Item Value Reference Range Interpretation Comments WBC (test code = 7.2 See_Comment [Automated message] ) The system [employer] generated this result transmit lisa reference range : 3.8 - 10.8 Thousand /uL. The reference r mela was not used to interpret this result as normal/abnormal . RBC (test code = 789-8) 4.03 See_Comment L [Au tomated message] The system [employer] generated this result transmit lisa reference range [...] L [Aut omated message] ) The system [employer] generated this result transmit lisa reference range : 140 - 400 Thousand/ uL. The reference r mela was not used to interpret this result as normal/abnormal . MPV (test code = 7.5-12.5 Due to plat elet or [id number]) RBC variability in size or shapeth e result cannot b e reported accura tely. # Neutros (test code = 4284 See_Comment [Aut omated message] [id number]) The system [employer] generated this result transmit lisa reference range : 1,500 - 7,800 cells/uL. The reference range was not used to interpret this result as normal/abnormal . # Lymphs (test code = 1879 See_Comment [Auto mated message] 731-0) The system [employer] generated this result transmit lisa reference range : 850 - 3,900 cells/u L. The reference r mela was not used to interpret this result as normal/abnormal . # Monos (test code = 871 See_Comment [Autom ated message] ) The system [employer] generated this result transmit lisa reference range : 200 - 950 cells/uL. The reference range was not used to interpret this result as normal/abnormal . # Eos (test code = 108 See_Comment [Automat ed message] 1-2) The system [employer] generated this result transmit lisa reference range : 15 - 500 cells/uL. The reference range was not used to interpret this result as normal/abnormal . # Baso (test code = 58 See_Comment [Automa lisa message] 704-7) The system [employer] generated this result transmit lisa reference range [...] 20191218) Lab Interpretation (test Abnormal code = 81376-9) [facility], % sat. (without ferritin)2022-01-08 09:52:00 Test Item Value Reference Range Interpretation Comments Iron (test code = 21 See_Comment L [Automate d message] ) The system [employer] generated this result transmitted ref erence range: 50 - 180 mcg/dL. The ref erence range was not u sed to interpret this result as normal/abnor mal. Iron Bind.Cap.(TIBC) 309 See_Comment [Autom ated message] (test code = 0595859) The sy stem which generated this result transmitted ref erence range: 250 - 42 5 mcg/dL (calc). The reference range was not used to int erpret this result as normal/abnormal . Iron % Saturation (test 7 See_Comment L [Au tomated message] code = 5036021) The system [employer] [facility] generated this result transmitted ref erence range: 20 - 48 % (calc). The ref erence range was not u sed to interpret this result as normal/abnor mal. Lab Interpretation (test Abnormal code = 62411-6) [facility] [id number] 09:52:00 Test Item Value Reference Range Interpretation Comments Platelet Estimate (test code = DECREASED ADEQUATE A 64342-5) Lab Interpretation (test code = Abnormal 31876-6) [facility] 09:52:00 Test Item Value Reference Range Interpretation Comments Ferritin, Serum (test code = 2276-4) 16 ng/mL 24-380 L Lab Interpretation (test code = Abnormal 76496-3) [facility] + automated [id number] 09:52:00 Test Item Value Reference Range Interpretation Comments WBC (test code = 7.2 See_Comment [Automated message] ) The system [employer] generated this result transmit lisa reference range : 3.8 - 10.8 Thousand /uL. The reference r mela was not used to interpret this result as normal/abnormal . RBC (test code = 789-8) 4.03 See_Comment L [Au tomated message] The system [employer] generated this result transmit lisa reference range [...] L [Aut omated message] ) The system [employer] generated this result transmit lisa reference range : 140 - 400 Thousand/ uL. The reference r mela was not used to interpret this result as normal/abnormal . MPV (test code = 7.5-12.5 Due to plat elet or 1375999) RBC variability in size or shapeth e result cannot b e reported accura tely. # Neutros (test code = 4284 See_Comment [Aut omated message] 20191222) The system [employer] generated this result transmit lisa reference range : 1,500 - 7,800 cells/uL. The reference range was not used to interpret this result as normal/abnormal . # Lymphs (test code = 1879 See_Comment [Auto mated message] 1-0) The system [employer] generated this result transmit lisa reference range : 850 - 3,900 cells/u L. The reference r mela was not used to interpret this result as normal/abnormal . # Monos (test code = 871 See_Comment [Autom ated message] ) The system [employer] generated this result transmit lisa reference range : 200 - 950 cells/uL. The reference range was not used to interpret this result as normal/abnormal . # Eos (test code = 108 See_Comment [Automat ed message] 1-2) The system [employer] generated this result transmit lisa reference range : 15 - 500 cells/uL. The reference range was not used to interpret this result as normal/abnormal . # Baso (test code = 58 See_Comment [Automa lisa message] 474-7) The system [employer] generated this result transmit lisa reference range [...] 20191218) Lab Interpretation (test Abnormal code = 61502-2) [facility], [facility], % sat. (without ferritin)2022-01-08 09:52:00 Test Item Value Reference Range Interpretation Comments Iron (test code = 21 See_Comment L [Automate d message] ) The system whic h generated this result [...] See_Comment L [Au tomated message] code = 0410259) The system [facility] generated this result transmitted ref erence range: 20 - 48 % (calc). The ref erence range was not u sed to interpret this result as normal/abnor mal. Lab Interpretation (test Abnormal code = 26546-0) [facility]PL[facility] [id number] 09:52:00 Test Item Value Reference Range Interpretation Comments Platelet Estimate (test code = DECREASED ADEQUATE A 58295-4) Lab Interpretation (test code = Abnormal 45220-8) [facility] 09:52:00 Test Item Value Reference Range Interpretation Comments Ferritin, Serum (test code = 2276-4) 16 ng/mL 24-380 L Lab Interpretation (test code = Abnormal 32603-6) [facility] + automated [id number] 09:52:00 Test Item Value Reference Range Interpretation Comments WBC (test code = 7.2 See_Comment [Automated message] ) The system [employer] generated this result transmit lisa reference range : 3.8 - 10.8 Thousand /uL. The reference r mela was not used to interpret this result as normal/abnormal . RBC (test code = 789-8) 4.03 See_Comment L [Au tomated message] The system [employer] generated this result transmit lisa reference range [...] L [Aut omated message] ) The system [employer] generated this result transmit lisa reference range : 140 - 400 Thousand/ uL. The reference r mela was not used to interpret this result as normal/abnormal . MPV (test code = 7.5-12.5 Due to plat elet or 3376469) RBC variability in size or shapeth e result cannot b e reported accura tely. # Neutros (test code = 4284 See_Comment [Aut omated message] 20191222) The system [employer] generated this result transmit lisa reference range : 1,500 - 7,800 cells/uL. The reference range was not used to interpret this result as normal/abnormal . # Lymphs (test code = 1879 See_Comment [Auto mated message] 1-0) The system [employer] generated this result transmit lisa reference range : 850 - 3,900 cells/u L. The reference r mela was not used to interpret this result as normal/abnormal . # Monos (test code = 871 See_Comment [Autom ated message] ) The system [employer] generated this result transmit lisa reference range : 200 - 950 cells/uL. The reference range was not used to interpret this result as normal/abnormal . # Eos (test code = 108 See_Comment [Automat ed message] 361-2) The system [employer] generated this result transmit lisa reference range : 15 - 500 cells/uL. The reference range was not used to interpret this result as normal/abnormal . # Baso (test code = 58 See_Comment [Automa lisa message] 354-7) The system [employer] generated this result transmit lisa reference range [...] 20191218) Lab Interpretation (test Abnormal code = 01120-8) [facility], TIBC, % sat. (without ferritin)2022-01-08 09:52:00 Test Item Value Reference Range Interpretation Comments Iron (test code = 21 See_Comment L [Automate d message] 8692880) The system [employer] generated this result transmitted ref erence range: 50 - 180 mcg/dL. The ref erence range was not u sed to interpret this result as normal/abnor mal. Iron Bind.Cap.(TIBC) 309 See_Comment [Autom ated message] (test code = 6729542) The sy stem which generated this result transmitted ref erence range: 250 - 42 5 mcg/dL (calc). The reference range was not used to int erpret this result as normal/abnormal . Iron % Saturation (test 7 See_Comment L [Au tomated message] code = 6106895) The system [facility] generated this result transmitted ref erence range: 20 - 48 % (calc). The ref erence range was not u sed to interpret this result as normal/abnor mal. Lab Interpretation (test Abnormal code = 37626-2) [facility]PL[facility] [id number] 09:52:00 Test Item Value Reference Range Interpretation Comments Platelet Estimate (test code = DECREASED ADEQUATE A 93055-5) Lab Interpretation (test code = Abnormal 98772-4) [facility]20[facility] 09:52:00 Test Item Value Reference Range Interpretation Comments Ferritin, Serum (test code = 2276-4) 16 ng/mL 24-380 L Lab Interpretation (test code = Abnormal 80769-3) [facility] + automated [id number] 09:52:00 Test Item Value Reference Range Interpretation Comments WBC (test code = 7.2 See_Comment [Automated message] ) The system [employer] generated this result transmit lisa reference range : 3.8 - 10.8 Thousand /uL. The reference r mela was not used to interpret this result as normal/abnormal . RBC (test code = 789-8) 4.03 See_Comment L [Au tomated message] The system [employer] generated this result transmit lisa reference range [...] L [Aut omated message] ) The system [employer] generated this result transmit lisa reference range : 140 - 400 Thousand/ uL. The reference r mela was not used to interpret this result as normal/abnormal . MPV (test code = 7.5-12.5 Due to plat elet or 2529211) RBC variability in size or shapeth e result cannot b e reported accura tely. # Neutros (test code = 4284 See_Comment [Aut omated message] 20191222) The system [employer] generated this result transmit lisa reference range : 1,500 - 7,800 cells/uL. The reference range was not used to interpret this result as normal/abnormal . # Lymphs (test code = 1879 See_Comment [Auto mated message] 731-0) The system [employer] generated this result transmit lisa reference range : 850 - 3,900 cells/u L. The reference r mela was not used to interpret this result as normal/abnormal . # Monos (test code = 871 See_Comment [Autom ated message] ) The system [employer] generated this result transmit lisa reference range : 200 - 950 cells/uL. The reference range was not used to interpret this result as normal/abnormal . # Eos (test code = 108 See_Comment [Automat ed message] 711-2) The system [employer] generated this result transmit lisa reference range : 15 - 500 cells/uL. The reference range was not used to interpret this result as normal/abnormal . # Baso (test code = 58 See_Comment [Automa lisa message] 704-7) The system [employer] generated this result transmit lisa reference range [...] 20191218) Lab Interpretation (test Abnormal code = 67903-8) [facility], TIBC, % sat. (without ferritin)2022-01-08 09:52:00 Test Item Value Reference Range Interpretation Comments Iron (test code = 21 See_Comment L [Automate d message] ) The system [employer] generated this result transmitted ref erence range: 50 - 180 mcg/dL. The ref erence range was not u sed to interpret this result as normal/abnor mal. Iron Bind.Cap.(TIBC) 309 See_Comment [Autom ated message] (test code = 4514112) The sy stem which generated this result transmitted ref erence range: 250 - 42 5 mcg/dL (calc). The reference range was not used to int erpret this result as normal/abnormal . Iron % Saturation (test 7 See_Comment L [Au tomated message] code = 4465182) The system [employer] generated this result transmitted ref erence range: 20 - 48 % (calc). The ref erence range was not u sed to interpret this result as normal/abnor mal. Lab Interpretation (test Abnormal code = 88779-7) [facility] [id number] 09:52:00 Test Item Value Reference Range Interpretation Comments Platelet Estimate (test code = DECREASED ADEQUATE A 30179-0) Lab Interpretation (test code = Abnormal 62784-1) [facility] 09:52:00 Test Item Value Reference Range Interpretation Comments Ferritin, Serum (test code = 2276-4) 16 ng/mL 24-380 L Lab Interpretation (test code = Abnormal 16735-2) [facility] + automated [id number] 09:52:00 Test Item Value Reference Range Interpretation Comments WBC (test code = 7.2 See_Comment [Automated message] ) The system [employer] generated this result transmit lisa reference range : 3.8 - 10.8 Thousand /uL. The reference r mela was not used to interpret this result as normal/abnormal . RBC (test code = 789-8) 4.03 See_Comment L [Au tomated message] The system [employer] generated this result transmit lisa reference range [...] L [Aut omated message] ) The system [employer] generated this result transmit lisa reference range : 140 - 400 Thousand/ uL. The reference r mela was not used to interpret this result as normal/abnormal . MPV (test code = 7.5-12.5 Due to plat elet or 0850655) RBC variability in size or shapeth e result cannot b e reported accura tely. # Neutros (test code = 4284 See_Comment [Aut omated message] 20191222) The system [employer] generated this result transmit lisa reference range : 1,500 - 7,800 cells/uL. The reference range was not used to interpret this result as normal/abnormal . # Lymphs (test code = 1879 See_Comment [Auto mated message] 731-0) The system [employer] generated this result transmit lisa reference range : 850 - 3,900 cells/u L. The reference r mela was not used to interpret this result as normal/abnormal . # Monos (test code = 871 See_Comment [Autom ated message] ) The system [employer] generated this result transmit lisa reference range : 200 - 950 cells/uL. The reference range was not used to interpret this result as normal/abnormal . # Eos (test code = 108 See_Comment [Automat ed message] 761-2) The system [employer] generated this result transmit lisa reference range : 15 - 500 cells/uL. The reference range was not used to interpret this result as normal/abnormal . # Baso (test code = 58 See_Comment [Automa lisa message] 804-7) The system [employer] generated this result transmit lisa reference range [...] 20191218) Lab Interpretation (test Abnormal code = 61150-6) [facility], TIBC, % sat. (without ferritin)2022-01-08 09:52:00 Test Item Value Reference Range Interpretation Comments Iron (test code = 21 See_Comment L [Automate d message] 7261990) The system whic h generated this result transmitted ref erence range: 50 - 180 mcg/dL. The ref erence range was not u sed to interpret this result as normal/abnor mal. Iron Bind.Cap.(TIBC) 309 See_Comment [Autom ated message] (test code = 7354134) The sy stem which generated this result transmitted ref erence range: 250 - 42 5 mcg/dL (calc). The reference range was not used to int erpret this result as normal/abnormal . Iron % Saturation (test 7 See_Comment L [Au tomated message] code = 4673681) [facility] generated this result transmitted ref erence range: 20 - 48 % (calc). The ref erence range was not u sed to interpret this result as normal/abnor mal. Lab Interpretation (test Abnormal code = 79305-2) [facility] [id number] 09:52:00 Test Item Value Reference Range Interpretation Comments Platelet Estimate (test code = DECREASED ADEQUATE A 07243-8) Lab Interpretation (test code = Abnormal 39290-7) [facility] CenterMR, BRAIN, [id number] 15:47:00REFERRING : ANIL SALVADOR Unlisted Reason for Exam - Click Yes and Enter Reason Below- >Yes Unlisted Reason for Exam->1.3 cm midbrain/cisternal [facility] 1955 Sex: MFINAL REPORT MRI Brain [...] MDReport Verified Date/Time: 01/04/2022 15:47:33 CBC WITH [id number] 22:20:29 Test Item Value Reference Range Interpretation Comments WBC (test code = See_Comment H [Automated 7790-2) message] The system which generated this result [...] RDW-SD (test code = 49.4 fL 38.5-51.6 18634-7) RDW-CV (test code = 20.9 % 12.1-15.4 H 788-0) PLT (test code = See_Comment L [Automated 777-3) message] The system which generated this result transmitted reference range : 150 - 328 10*3/?L. The reference range was not used to interpret this result as normal/abnormal . MPV (test code = Not Measure d 17001-8) NRBC/100 WBC (test See_Comment [Automat ed code = 2380861813) message] The system which generated this result transmitted reference range : 0.0 - 10.0 /100 WBCs. The reference range was not used to interpret this result as normal/abnormal . NRBC x10^3 (test code See_Comment [Auto mated = 7637136589) message] The system which generated this result transmitted reference range : 10*3/?L. The reference range was not used to interpret this result as normal/abnormal . GRAN MAT (NEUT) % 85.5 % (test code = 770-8) IMM GRAN % (test code 0.50 % = 8761924789) LYMPH % (test code = 7.6 % 736-9) MONO % (test code = 5.8 % 5905-5) EOS % (test code = 0.1 % 713-8) BASO % (test code = 0.5 % 706-2) GRAN MAT x10^3(ANC) 9.28 10*3/uL 1.99-6.95 H (test code = 9479754565) IMM GRAN x10^3 (test 0.05 10*3/uL 0-0.06 code = 3023098325) LYMPH x10^3 (test 0.82 10*3/uL 1.09-3.23 L code = 731-0) MONO x10^3 (test code 0.63 10*3/uL 0.36-1.02 = 742-7) EOS x10^3 (test code 0.06-0.53 L = 711-2) BASO x10^3 (test code 0.05 10*3/uL 0.01-0.09 = 704-7) PLT ESTIMATE (test Decreased Normal A code = 9317-9) MADALYN (test code = MADALYN) No Platelet clumps seen Lab Interpretation Abnormal (test code = 96736-2) [facility] METABOLIC PANEL (NA, K, CL, CO2, GLUCOSE, BUN, CREATININE, CA)2021-12-26 21:51:09 Test Item Value Reference Range Interpretation Comments NA (test code = 134 mmol/L 135-145 L 6831093931) K (test code = 3.7 mmol/L 3.5-5 7882096338) CL (test code = 105 mmol/L 98-108 4159967073) CO2 TOTAL (test code = 21 mmol/L 23-31 L 4746029504) AGAP (test code = 2-16 1687536878) BUN (test code = 5 mg/dL 7-23 L 2892383119) GLUCOSE (test code = 257 mg/dL 70-110 H 6173581663) CREATININE (test code = 0.61 mg/dL 0.6-1.25 5005885825) CALCIUM (test code = 7.9 mg/dL 8.6-10.6 L 0496918760) eGFR (test code = mL/min/1.73m2 8556141666) MADALYN (test code = MADALYN) Association of [...] tests). Lab Interpretation Abnormal (test code = 33074-9) [facility] METABOLIC [id number] 13:28:32 Test Item Value Reference Range Interpretation [...] not appl icable for dialysis patien ts Clammer ID - BSSpecimen slightly ictericHEPATIC FUNCTION [id number] 13:28:32 Test Item Value Reference Range Interpretation [...] (test code = 21 U/L 6-55 347) Clammer ID - BSSpecimen slightly ictericPROTHROMBIN [id number] 13:21:12 Test Item Value Reference Range Interpretation Comments PROTIME (BEAKER) 17.5 seconds 11.9-14.2 H (test code = 759) INR (BEAKER) (test 1.46 See_Comment [Automat ed message] code = 370) The system [employer] generated this result transmitted ref erence range: <=5.90. The reference range was not used to int erpret this result as normal/abnormal . RECOMMENDED COUMADIN/WARFARIN INR THERAPY RANGESSTANDARD DOSE: 2.0 - 3.0 Includes: PROPHYLAXIS for venous thrombosis, systemic embolization; TREATMENT for venous thrombosis and/or pulmonary embolus.HIGH RISK: Target INR is 2.5-3.5 for patients with mechanical heart valves.CBC W/PLT COUNT & AUTO [id number] 13:14:24 Test Item Value Reference Range Interpretation [...] (BEAKER) (test code = 2801) MR, ABDOMEN, [id number] 18:24:00REFERRING : ANIL LEROYT Include Abdominal VesselsCHI [facility] : 1955 Sex: [...] including splenomegaly and large esophageal varices. Signed: Horn, Tawanda MDReport Verified Date/Time: 12/08/2021 18:24:59 CT, CHEST, WITHOUT [id number] 12:41:00REFERRING MD: ANIL SALVADOR Mets work up [facility] : 1955 Sex: MFINAL REPORT [...] right lower lobe nodule. Signed: Ankit Gaines Verified Date/Time: 12/08/2021 12:41:29 ALPHA FETOPROTEIN (AFP), TUMOR MARKER 2021-12-06 17:08:44 Test Item Value Reference Range Interpretation Comments ALPHA-FETOPROTEIN (BEAKER) (test 2.3 ng/mL <10.0 code = 1094) Clammer ID - DBBASIC METABOLIC [id number] 16:53:56 Test Item Value Reference Range Interpretation [...] S NOT APPLICABLE FOR DIALYSIS PATIEN TS. Clammer ID - BSSpecimen slightly ictericHEPATIC FUNCTION [id number] 16:53:56 Test Item Value Reference Range Interpretation [...] (test code = 22 U/L 6-55 347) Clammer ID - BSSpecimen slightly ictericPROTHROMBIN [id number] 16:43:33 Test Item Value Reference Range Interpretation Comments PROTIME (BEAKER) 17.0 seconds 11.9-14.2 H (test code = 759) INR (BEAKER) (test 1.40 See_Comment [Automat ed message] code = 370) The system [employer] generated this result transmitted ref erence range: <=5.90. The reference range was not used to int erpret this result as normal/abnormal . RECOMMENDED COUMADIN/WARFARIN INR THERAPY RANGESSTANDARD DOSE: 2.0 - 3.0 Includes: PROPHYLAXIS for venous thrombosis, systemic embolization; TREATMENT for venous thrombosis and/or pulmonary embolus.HIGH RISK: Target INR is 2.5-3.5 for patients with mechanical heart valves.CBC W/PLT COUNT & AUTO [id number] 16:42:35 Test Item Value Reference Range Interpretation [...] = 2801) MR, MRI, METASTATIC SURVEY/BONE MARROW [id number] 13:54:00REFERRING MD: ANIL SALVADOR Mets work up Reason for Exam:->hcc, [facility] : 1955 Sex: MFINAL [...] or hemorrhagic lesion. Suggest correlation with brain CTor MRI for further evaluation. Signed: Milton Royal Verified Date/Time: 12/06/2021 13:54:32 Reading Location: [facility] C013X Ortho Consult Reading Room HEREDITARY [id number] 10:46:31 Test Item Value Reference Interpretation Comments Range DNA Mutation See Below RESULT: NEGATIV E Analysis Interpretation: DNA testing (test code = indicates that this individual 3058444) isnegative for the C282Y and H63D pathogenic [...] hogenic variants in the HFEgene, C282Y (NM 270807.2: c .845G>A, p.Naw966Rdx) an d H63D (IO143083.2: c. 187C>G, p.Nlw53Fam), th at are commonly associated with HH. [...] ca re providers, please contact your local [employer] 'genetic counselor or [facility] [phone] ( ) forassistance with the interp retation of these results. This test was developed and i ts analytical performancechar acteristics have been deter mined by [employer] [facility] Miguelangel woods. It has not been cleare d or approved by[facility]. This ass ay has been validated pursu ant to the CLIA regulationsand is used for clinical purpos es. For more information, pl ease refer [email or web address] [email or web address]/h emochromatosis. (This linkis be ing provided for information al/educational purposes only.) Reviewed and signed by Liane Phillips MD, MHA , FACMG, CGMBS, Signed on 09/09 at 10:42 MADALYN (test Performing Lab code = MADALYN) [employer] [facility] [address] [place] [address] Aung Salazar MD, PhD, SANDRA [facility] HospitalHEREDITARY [id number] 10:46:31 Test Item Value Reference Interpretation Comments Range DNA Mutation See Below RESULT: NEGATIV E Analysis Interpretation: DNA testing (test code = indicates that this individual 5541004) isnegative for the C282Y and H63D pathogenic [...] hogenic variants in the HFEgene, C282Y (NM 614089.2: c .845G>A, p.Eze975Tyf) an d H63D (JE913421.2: c. 187C>G, p.Lcj96Zsh), th at are commonly associated with HH. [...] relevant history,and oth er laboratory data. Health [place] re providers, please contact your local [employer] 'genetic counselor or [facility] [phone] ( ) forassistance with the interp retation of these results. This test was developed and i ts analytical performancechar acteristics have been deter mined by [facility]. It has not been cleare d or approved [facility]. This ass ay has been validated pursu ant to the CLIA regulationsand is used for clinical purpos es. For more information, pl ease refer tohttp://educat ion.[employer].com/faq/h emochromatosis. (This linkis be ing provided for information al/educational purposes only.) Reviewed and signed by Liane Phillips MD, A , FAC, [facility], Signed on 09/09 at 10:42 MADALYN (test Performing Lab code = MADALYN) EZ [employer] [facility] [address] [place] [address] Aung Salazar MD, PhD, SANDRA [facility] CenterHEREDITARY [id number] 10:46:31 Test Item Value Reference Interpretation Comments Range DNA Mutation See Below RESULT: NEGATIV E Analysis Interpretation: DNA testing (test code = indicates that this individual [id number]) isnegative for the C282Y and H63D pathogenic [...] hogenic variants in the HFEgene, C282Y (NM 073589.2: c .845G>A, p.Nph722Vro) an d H63D (VG329750.2: c. 187C>G, p.Yvr19Ufz), th at are commonly associated with HH. [...] local [employer] cs'genetic counselor or marlene myers [phone] ( ) forassistance with the interp retation of these results. This test was developed and i ts analytical performancechar acteristics have been deter mined by [employer] [facility] [employer]. It has not been cleare d or approved byA. This ass ay has been validated pursu ant to the CLIA regulationsand is used for clinical purpos es. For more information, pl ease refer tohttp://educat ion.[employer].com/faq/h emochromatosis. (This linkis be ing provided for information al/educational purposes only.) Reviewed and signed by Liane Phillips MD, MHA , FACMG, CGMBS, Signed on 09/09 at 10:42 MADALYN (test Performing Lab code = MADALYN) EZ [employer] [facility] [address] [place] [address] Aung Salazar MD, PhD, SANDRA [facility] CenterHEREDITARY [id number] 10:46:31 Test Item Value Reference Interpretation Comments Range DNA Mutation See Below RESULT: NEGATIV E Analysis Interpretation: DNA testing (test code = indicates that this individual [id number]) isnegative for the C282Y and H63D pathogenic [...] hogenic variants in the HFEgene, C282Y (NM 593455.2: c .845G>A, p.Inm839Zly) an d H63D (ZC738314.2: c. 187C>G, p.Mal20Jhj), th at are commonly associated with HH. [...] ca re providers, please contact your local [employer] 'genetic counselor or [facility] [phone] ( ) forassistance with the interp retation of these results. This test was developed and i ts analytical performancechar acteristics have been deter mined by [facility] [facility] carmen. It has not been cleare d or approved [facility]. This ass ay has been validated pursu ant to the CLIA regulationsand is used for clinical purpos es. For more information, pl ease refer tohttp://educat ion.[employer].com/faq/h emochromatosis. (This linkis be ing provided for information al/educational purposes only.) Reviewed and signed by Liane Phillips MD, MHA , FACMG, CGMBS, Signed on 09/09 at 10:42 MADALYN (test Performing Lab code = MADALYN) [employer] [facility] [address] [place] [address] Aung Salazar MD, PhD, SANDRA [facility] [id number] 10:46:31 Test Item Value Reference Interpretation Comments Range DNA Mutation See Below RESULT: NEGATIV E Analysis Interpretation: DNA testing (test code = indicates that this individual [id number]) isnegative for the C282Y and H63D pathogenic [...] hogenic variants in the HFEgene, C282Y (NM 088896.2: c .845G>A, p.Npg436Hgo) an d H63D (VI413871.2: c. 187C>G, p.Bsf65Eay), th at are commonly associated with HH. [...] ca re providers, please contact your local [employer] 'genetic counselor or [facility] [phone] ( ) forassistance with the interp retation of these results. This test was developed and i ts analytical performancechar acteristics have been deter mined by [facility] [facility]. It has not been cleare d or approved [facility]. This ass ay has been validated pursu ant to the CLIA regulationsand is used for clinical purpos es. For more information, pl ease refer tohttp://educat ion.[employer].com/faq/h emochromatosis. (This linkis be ing provided for information al/educational purposes only.) Reviewed and signed by Liane Phillips MD, A , FACMG, CGMBS, Signed on 09/09 at 10:42 MADALYN (test Performing Lab code = MADALYN) EZ [employer] [facility] [address] [place] [address] Aung Salazar MD, PhD, SANDRA [facility] CenterHEREDITARY [id number] 10:46:31 Test Item Value Reference Interpretation Comments Range DNA Mutation See Below RESULT: NEGATIV E Analysis Interpretation: DNA testing (test code = indicates that this individual 7235490) isnegative for the C282Y and H63D pathogenic [...] and sub mitted clinical information rev iewed byBernard Andrae Ilagan, MD, MHA, FACMG, CGMBS. DETAILED ASSAY INFORMATION: [...] hogenic variants in the HFEgene, C282Y (NM 194815.2: c .845G>A, p.Bhx739Iwj) an d H63D (KS308237.2: c. 187C>G, p.Iuu71Aww), th at are commonly associated with HH. [...] your local [employer] 'genetic counselor or [facility] [phone] ( ) forassistance with the interp retation of these results. This test was developed and i ts analytical performancechar acteristics have been deter mined by [employer] [facility] [employer]. It has not been cleare d or approved byA. This ass ay has been validated pursu ant to the CLIA regulationsand is used for clinical purpos es. For more information, pl ease refer tohttp://educat ion.[employer].com/faq/h emochromatosis. (This linkis be ing provided for information al/educational purposes only.) Reviewed and signed by Liane Phillips MD, A , FACMG, CGMBS, Signed on 09/09 at 10:42 MADALYN (test Performing Lab code = MADALYN) [employer] [facility] [address] [place] [address] Aung Salazar MD, PhD, SANDRA [facility] CenterMR, ABDOMEN, [id number] 14:51:00REFERRING : ANIL SALVADOR Include Abdominal Vessels [facility] LUIS : 1955 Sex: MFINAL REPORT MR, ABDOMEN, [...] slightly increased in size Signed: Stefano Mckeon [facility] Verified Date/Time: 09/01/2021 14:51:17 CT, CHEST, WITHOUT [id number] 16:16:00REFERRING MD: ANIL SALVADOR Mets [facility] : 1955 Sex: MFINAL [...] MDReport Verified Date/Time: 08/31/2021 16:16:00 Reading Location: [facility] ALPHA FETOPROTEIN (AFP), TUMOR MARKER 2021-08-26 11:47:11 Test Item Value Reference Range Interpretation Comments ALPHA-FETOPROTEIN (BEAKER) (test code < ng/mL <10.0 = 1094) Clammer ID - BSBASIC METABOLIC [id number] 11:20:03 Test Item Value Reference Range Interpretation [...] S NOT APPLICABLE FOR DIALYSIS PATIEN TS. Clammer ID - PIDAMIAN LSpecimen slightly ictericHEPATIC FUNCTION [id number] 11:20:03 Test Item Value Reference Range Interpretation [...] (test code = 26 U/L 6-55 347) Clammer ID - KRISHNA LSpecimen slightly ictericPROTHROMBIN TIME/[id number] 10:58:57 Test Item Value Reference Range Interpretation Comments PROTIME (BEAKER) 17.2 seconds 11.9-14.2 H (test code = 759) INR (BEAKER) (test 1.42 See_Comment [Automat ed message] code = 370) The system [employer] generated this result transmitted ref erence range: <=5.90. The reference range was not used to int erpret this result as normal/abnormal . RECOMMENDED COUMADIN/WARFARIN INR THERAPY RANGESSTANDARD DOSE: 2.0 - 3.0 Includes: PROPHYLAXIS for venous thrombosis, systemic embolization; TREATMENT for venous thrombosis and/or pulmonary embolus.HIGH RISK: Target INR is 2.5-3.5 for patients with mechanical heart valves.CBC W/PLT COUNT & AUTO [id number] 10:56:22 Test Item Value Reference Range Interpretation [...] (BEAKER) (test code = 2801) Comprehensive metabolic [id number] 16:54:00 Test Item Value Reference Range Interpretation Comments Glucose (test code = 157 mg/dL 65-99 H Fasti ng reference ) interval For so karla without [...] mal. Sodium (test code = 137 mmol/L 135-071 0004656) Potassium, Serum 3.8 mmol/L 3.5-5.3 (test code = 20101014) Chloride (test code = 107 mmol/L 98-116 6241900) Carbon Dioxide, Total 22 mmol/L 20-32 (test code = ) Calcium, Serum (test 8.1 mg/dL 8.6-10.3 L code = 20100926) Protein, Total, Serum 6.0 g/dL 6.1-8.1 L (test code = 20101003) Albumin (test code = 3.0 g/dL 3.6-5.1 L ) GLOBULIN (QUEST) 3.0 See_Comment [Automated message] (test code = 8908896) The sy stem which generated this result [...] ) Lab Interpretation Abnormal (test code = 54903-2) [facility] CenterComprehensive metabolic [id number] 16:54:00 Test Item Value Reference Range Interpretation Comments Glucose (test code = 157 mg/dL 65-99 H Fasti ng reference 6088088) interval For so meone without known diabetes, [...] See_Comment [Autom ated message] (test code = 8461761) The sy stem which generated this result transmitted ref erence range: > OR = 6 0 mL/min/1.73m2. The reference range was not used to int erpret this result as normal/abnormal . eGFR If Africn Am 121 See_Comment [Automate d message] (test code = 0962996) The sy stem which generated this result [...] mal. Sodium (test code = 137 mmol/L 135-506 2470465) Potassium, Serum 3.8 mmol/L 3.5-5.3 (test code = 20101014) Chloride (test code = 107 mmol/L 98-363 7578979) Carbon Dioxide, Total 22 mmol/L 20-32 (test code = ) Calcium, Serum (test 8.1 mg/dL 8.6-10.3 L code = 20100926) Protein, Total, Serum 6.0 g/dL 6.1-8.1 L (test code = 20101003) Albumin (test code = 3.0 g/dL 3.6-5.1 L ) GLOBULIN (QUEST) 3.0 See_Comment [Automated message] (test code = 9133323) The sy stem which generated this result [...] 1.4 mg/dL 0.2-1.2 H (test code = 6319782) Alkaline Phosphatase, 103 U/L 35-144 S (test code = 6768-6) AST (SGOT) (test code 24 U/L 10-35 = 20101009) ALT (SGPT) (test code 15 U/L 9-46 = ) Lab Interpretation Abnormal (test code = 17962-0) [facility]Com[facility] [id number] 16:54:00 Test Item Value Reference Range Interpretation Comments Glucose (test code = 157 mg/dL 65-99 H Fastin g reference 4877108) interval For so karla without known diabetes, [...] mal. Sodium (test code = 137 mmol/L 135-673 6710794) Potassium, Serum 3.8 mmol/L 3.5-5.3 (test code = 20101014) Chloride (test code = 107 mmol/L 98-549 3941163) Carbon Dioxide, Total 22 mmol/L 20-32 (test code = ) Calcium, Serum (test 8.1 mg/dL 8.6-10.3 L code = 20100926) Protein, Total, Serum 6.0 g/dL 6.1-8.1 L (test code = 20101003) Albumin (test code = 3.0 g/dL 3.6-5.1 L ) GLOBULIN (QUEST) 3.0 See_Comment [Automated message] (test code = 4415581) The sy stem which generated this result transmitted ref erence range: 1.9 - 3. 7 g/dL (calc). The ref erence range was not u sed to interpret this result as normal/abnor mal. Albumin Globulin 1.0 See_Comment [Automated message] Ratio (test code = The syste m which ) generated this result transmitted ref erence range: [...] ) Lab Interpretation Abnormal (test code = 48585-9) [facility] CenterCom[facility] [id number] 16:54:00 Test Item Value Reference Range Interpretation Comments Glucose (test code = 157 mg/dL 65-99 H Fastin g reference 0257172) interval For so meone without known diabetes, [...] See_Comment [Autom ated message] (test code = 3560068) The sy stem which generated this result transmitted ref erence range: > OR = 6 0 mL/min/1.73m2. The reference range was not used to int erpret this result as normal/abnormal . eGFR If Africn Am 121 See_Comment [Automate d message] (test code = 0876989) The sy stem which generated this result [...] mal. Sodium (test code = 137 mmol/L 135-130 6863990) Potassium, Serum 3.8 mmol/L 3.5-5.3 (test code = 20101014) Chloride (test code = 107 mmol/L 98-657 6875344) Carbon Dioxide, Total 22 mmol/L 20-32 (test code = ) Calcium, Serum (test 8.1 mg/dL 8.6-10.3 L code = 20100926) Protein, Total, Serum 6.0 g/dL 6.1-8.1 L (test code = 20101003) Albumin (test code = 3.0 g/dL 3.6-5.1 L ) GLOBULIN (QUEST) 3.0 See_Comment [Automated message] (test code = 1408722) The sy stem which generated this result [...] ) Lab Interpretation Abnormal (test code = 93303-8) [facility]Com[facility] [id number] 16:54:00 Test Item Value Reference Range Interpretation Comments Glucose (test code = 157 mg/dL 65-99 H Fastin g reference ) interval For so meone without known diabetes, a glucosevalue >1 25 mg/dL indicates that they may havedi abetes and this should be confirmed with afollow-up test . BUN (test code = 7 mg/dL 20100929) Creatinine (test code 0.63 mg/dL 0.70-1.25 [...] mal. Sodium (test code = 137 mmol/L 135-165 6477869) Potassium, Serum 3.8 mmol/L 3.5-5.3 (test code = 20101014) Chloride (test code = 107 mmol/L 98-644 5805228) Carbon Dioxide, Total 22 mmol/L 20-32 (test code = 3734676) Calcium, Serum (test 8.1 mg/dL 8.6-10.3 L code = 2371092) Protein, Total, Serum 6.0 g/dL 6.1-8.1 L (test code = 20101003) Albumin (test code = 3.0 g/dL 3.6-5.1 L ) GLOBULIN (QUEST) 3.0 See_Comment [Automated message] (test code = 9620490) The sy stem which generated this result [...] 1.4 mg/dL 0.2-1.2 H (test code = 0113784) Alkaline Phosphatase, 103 U/L 35-144 S (test code = 6768-6) AST (SGOT) (test code 24 U/L 10-35 = 20101009) ALT (SGPT) (test code 15 U/L 9-46 = ) Lab Interpretation Abnormal (test code = 80534-5) [facility] CenterMR, ABDOMEN, [id number] 14:52:00REFERRING : ANIL SALVADOR Include Abdominal Vessels [facility] : 1955 Sex: MFINAL [...] MDReport Verified Date/Time: 05/03/2021 14:52:21 Reading Location: [address] Transitional Reading Room CT, CHEST, WITHOUT CONTRAST 2021-04-29 16:45:00REFERRING MD: ANIL SALVADOR Mets work up [facility] : 1955 Sex: MFINAL [...] MDReport Verified Date/Time: 04/29/2021 16:45:28 Reading Location: [address] Body Reading Room BONE AND/OR JOINT IMAGING, WHOLE [id number] 14:33:00REFERRING MD: ANIL SALVADOR METS [facility] : 1955 Sex: MFINAL REPORT PROCEDURE: BONE SCAN, WHOLE BODY CPT CODE: 72465 INDICATION: HCC PROTOCOL: 21.8 mCi of Tc-99m [...] Tami Owen Verified Date/Time: 04/29/2021 14:33:51 Reading Location:[address] Reading Room Basic Metabolic [id number] 12:07:01 Test Item Value Reference Range Interpretation [...] Calcium (test code = 8.9 mg/dL 8.4-10.2 67061-3) EGFR (test code = 95 mL/min/1.73 [place] [address]-6) NOT ACCURATE CREATININE CLEARANCE IN PREDICTING GLOMERULAR FILTRATION RATE . ESTIMATED GFR I S NOT APPLICABLE FOR DIALYSIS PATIENTS. MADALYN (test code = MADALYN) Clammer ID - ELOY MSpecimen slightly icteric Lab Interpretation Abnormal (test code = 27889-2) [facility] CenterHepatic function [id number] 12:07:01 Test Item Value Reference Range Interpretation Comments Protein, Total (test 7.3 See_Comment [Autom ated code = 2885-2) message] The system which generated this result transmitted reference range : 6.0 - 8.3 gm/dL . The reference range was not used to interpr et this result as normal/abnormal . Albumin (test code = 3.3 g/dL 3.5-5.0 L 89759-1) Total Bilirubin (test 1.8 mg/dL 0.2-1.2 H code = 1974-2) Bilirubin, Direct 0.8 mg/dL 0.1-0.5 H (test code = 1968-7) Alkaline Phosphatase 148 U/L 40-150 (test code = 6768-6) AST (test code = 31 U/L 5-34 1920-8) ALT (test code = 23 U/L 6-55 1742-6) MADALYN (test code = MADALYN) Clammer ID - ELOY Adamesecimen slightly icteric Lab Interpretation Abnormal (test code = 38639-3) [facility] MET[facility]OLIC [id number] 12:07:01 Test Item Value Reference Range Interpretation [...] S NOT APPLICABLE FOR DIALYSIS PATIEN TS. Clammer ID - ELOY MSpecimen slightly ictericHEPATIC FUNCTION [id number] 12:07:01 Test Item Value Reference Range Interpretation [...] (test code = 23 U/L 6-55 347) Clammer LEOPOLDO LYONS MSpecimen slightly ictericAlpha fetoprotein (AFP), tumor [id number] 11:59:44 Test Item Value Reference Range Interpretation Comments Alpha-Fetoprotein (test 2.5 ng/mL <10.0 code = 1834-1) MADALYN (test code = MADALYN) Clammer ID - ELOY M Lab Interpretation (test Normal code = 17621-1) [facility] CenterALPHA FETOPROTEIN (AFP), TUMOR [id number] 11:59:44 Test Item Value Reference Range Interpretation Comments ALPHA-FETOPROTEIN (BEAKER) (test 2.5 ng/mL <10.0 code = 1094) Clammer LEOPOLDO LYONS MProthrombin time/[id number] 11:32:54 Test Item Value Reference Interpretation Comments Range Protime (test code = 15.7 See_Comment H [Autom ated 5902-2) message] The system which generated this result transmitted reference range : 11.9 - 14.2 seconds. The reference range was not used to interpret this result as normal/abnormal . INR (test code = 1.27 See_Comment [Automated 8141-6) message] The system which generated this result [...] valves. Lab Interpretation Abnormal (test code = 81322-8) [facility] CenterPROTHROMBIN TIME/[id number] 11:32:54 Test Item Value Reference Range Interpretation Comments PROTIME (BEAKER) 15.7 seconds 11.9-14.2 H (test code = 759) INR (BEAKER) (test 1.27 See_Comment [Automat ed message] code = 370) The system [employer] generated this result transmitted ref erence range: <=5.90. The reference range was not used to int erpret this result as normal/abnormal . RECOMMENDED COUMADIN/WARFARIN INR THERAPY RANGESSTANDARD DOSE: 2.0 - 3.0 Includes: PROPHYLAXIS for venous thrombosis, systemic embolization; TREATMENT for venous thrombosis and/or pulmonary embolus.HIGH RISK: Target INR is 2.5-3.5 for patients with mechanical heart valves.CBC with platelet count + automated [id number] 11:25:26 Test Item Value Reference Range Interpretation Comments WBC (test code = 6690-2) 6.3 See_Comment [A utomated message] The system [employer] generated this result transmitted ref erence range: 3.5 - 10 .5 K/L. The refe rence range was not u sed to interpret this result as normal/abnor mal. RBC (test code = 789-8) 4.40 See_Comment L [Au tomated message] The system [employer] generated this result transmitted ref erence range: 4.63 - 6 .08 M/L. The refe rence range was not u sed to interpret this result as normal/abnor mal. MCHC (test code = 786-4) 29.8 See_Comment L [A utomated message] The system [employer] generated this result transmitted ref erence range: [...] L [Aut omated message] 777-3) The system [employer] generated this result transmitted ref erence range: 150 - 45 0 K/CU MM. The referen ce range was not u sed to interpret this result as normal/abnor mal. MPV (test code = [place] [address]-9) to abnormal Pollo telet population distribution. nRBC (test code = 413) 0 See_Comment [Aut omated message] The system [employer] generated this result transmitted ref erence range: [...] See_Comment [Aut omated message] 670) The system [employer] generated this result transmitted ref erence range: 1.78 - 5 .38 K/L. The refe rence range was not u sed to interpret this result as normal/abnor mal. # Lymphs (test code = 1.92 See_Comment [Auto mated message] 414) The system [employer] generated this result transmitted ref erence range: 1.32 - 3 .57 K/L. The refe rence range was not u sed to interpret this result as normal/abnor mal. # Monos (test code = 0.60 See_Comment [Autom ated message] 415) The system [employer] generated this result transmitted ref erence range: 0.30 - 0 .82 K/L. The refe rence range was not u sed to interpret this result as normal/abnor mal. # Eos (test code = 416) 0.11 See_Comment [Au tomated message] The system [employer] generated this result transmitted ref erence range: 0.04 - 0 .54 K/L. The refe rence range was not u sed to interpret this result as normal/abnor mal. # Baso (test code = 417) 0.05 See_Comment [A utomated message] The system [employer] generated this result transmitted ref erence range: 0.01 - 0 .08 K/L. The refe rence range was not u sed to interpret this result as normal/abnor mal. Immature 0 % 0-1 Granulocytes-Relative (test code = 2801) Lab Interpretation (test Abnormal code = 43334-4) [facility] W/PLT COUNT & AUTO [id number] 11:25:26 Test Item Value Reference Range Interpretation [...] PERCENT (BEAKER) (test code = 2801) TROPONIN [id number] 19:45:34 Test Item Value Reference Interpretation Comments Range TROPONIN I (test 0.004 ng/mL See_Comment [Automated code = 8242711852) message] The system which generated this result [...] biotin. Lab Interpretation Normal (test code = 05119-9) [facility] WITH [id number] 19:42:16 Test Item Value Reference Range Interpretation Comments WBC (test code = See_Comment [Automated 5453-2) message] The sy stem which generated this result transmitted reference range : 4.20 - 10.70 10*3/?L. The reference range was not used to interpret this result as normal/abnormal . RBC (test code = See_Comment [Automated 958-8) message] The sy stem which generated this [...] (test code = 55.0 fL 38.5-51.6 H 65540-8) RDW-CV (test code = 21.7 % 12.1-15.4 H 788-0) PLT (test code = See_Comment L [Automated 777-3) message] The sy stem which generated this result transmitted reference range : 150 - 328 10*3/ ?L. The reference r mela was not used to interpret this result as normal/abnormal . MPV (test code = Not Measure d 57987-3) IPF % (test code = 3.2 % 1.2-10.7 Platelet count 3153716192) measured by fluorescence method. NRBC/100 WBC (test See_Comment [Automat ed code = 9846994877) message] The system which generated this result transmitted reference range : 0.0 - 10.0 /100 WBCs. The refer ence range was not u sed to interpret th is result as normal/abnormal . NRBC x10^3 (test code <0.01 See_Comment [Auto mated = 7370777295) message] The s ystem which generated this result transmitted reference range : 10*3/?L. The reference range was not used to interpret this result as normal/abnormal . GRAN MAT (NEUT) % 42.9 % (test code = 770-8) IMM GRAN % (test code 0.60 % = 0716940634) LYMPH % (test code = 38.0 % 736-9) MONO % (test code = 14.2 % 5905-5) EOS % (test code = 3.3 % 713-8) BASO % (test code = 1.0 % 706-2) GRAN MAT x10^3(ANC) 2.24 10*3/uL 1.99-6.95 (test code = 4237280895) IMM GRAN x10^3 (test 0.03 10*3/uL 0.00-0.06 code = 6973661015) LYMPH x10^3 (test code 1.98 10*3/uL 1.09-3.23 = 731-0) MONO x10^3 (test code 0.74 10*3/uL 0.36-1.02 = 742-7) EOS x10^3 (test code = 0.17 10*3/uL 0.06-0.53 711-2) BASO x10^3 (test code 0.05 10*3/uL 0.01-0.09 = 704-7) Lab Interpretation Abnormal (test code = 80260-7) [facility]. METABOLIC PANEL (44758)2021-04-01 19:34:12 Test Item Value Reference Range Interpretation Comments NA (test code = 135 mmol/L 135-145 1484735320) K (test code = 3.8 mmol/L 3.5-5.0 2899953605) CL (test code = 104 mmol/L 98-108 0283497000) CO2 TOTAL (test code = 23 mmol/L 23-31 1351229798) AGAP (test code = 2-16 5532265976) BUN (test code = 9 mg/dL 7-23 8868418241) GLUCOSE (test code = 195 mg/dL 70-110 H 3216325848) CREATININE (test code = 0.65 mg/dL 0.60-1.25 4110257472) TOTAL BILI (test code = 1.3 mg/dL 0.1-1.1 H 5189662110) CALCIUM (test code = 8.2 mg/dL 8.6-10.6 L 9624311054) T PROTEIN (test code = 6.6 g/dL 6.3-8.2 3703216655) ALBUMIN (test code = 2.9 g/dL 3.5-5.0 L 4273929748) ALK PHOS (test code = 143 U/L 34-122 H 3198546298) ALTv (test code = 28 U/L 5-50 1742-6) AST(SGOT) (test code = 47 U/L 13-40 H 4052694299) eGFR (test code = mL/min/1.73m2 1362651991) MADALYN (test code = MADALYN) Association of [...] tests). Lab Interpretation Abnormal (test code = 92313-6) [facility] PasoAMMONIA, [id number] 19:32:52 Test Item Value Reference Range Interpretation Comments AMMONIA (test code = 2246486298) 48 umol/L 9-33 H Lab Interpretation (test code = Abnormal 50055-3) [facility] PasoPROTHROMBIN TIME / [id number] 19:01:25 Test Item Value Reference Range Interpretation Comments PROTIME PATIENT (test See_Comment H [Auto mated message] code = 5964-2) The system [facility] generated this result transmitted ref erence range: 12.0 - 1 4.7 Seconds. The reference range was not used to int erpret this result as normal/abnormal . INR (test code = 6301-6) Nor mal INR <1.1; Warfarin Therap eutic range 2.0 to 3. 0 or 2.5 to 3.5, dep ending upon the indica tions. Lab Interpretation (test Abnormal code = 08420-0) [facility] PasoANG, EMBOLIZATION, EXTENSIVE - ARTERIAL 2021-03-12 14:48:00REFERRING : ANIL SALVADOR For TACEReason for Exam:- >hcc, hcvCHI [facility]OName: [facility] CARDONA : 1955 Sex: MFINAL REPORT [...] blood loss: < 5 cc. Specimen: None. tool planer set up operator: Carolyn. Egg Trayer: Dilip. Fluoroscopy Time: 14.1 min. Dose (Ka,r): [...] accessed using a micropuncture set. A 5 Ghanaian sheath was placed. Diagnostic mesenteric angiogram was performedto access vessel patency and exclude arterio-portal shunting. A 5 Ghanaian Anaya catheter which was used to select the celiac trunk for a DSA run. A 3 Ghanaian microcatheter was advanced coaxially through the Anaya [...] Jaime Verified Date/Time: 03/12/2021 14:48:55 Reading Location: [place] [address] Angio Body Reading Room HEPATIC FUNCTION PANEL [...] (test code = 19 U/L 6-55 347) Clammer ID - EMERSONSpecimen slightly ictericBASIC METABOLIC [id number] 07:40:33 Test Item Value Reference Range Interpretation [...] S NOT APPLICABLE FOR DIALYSIS PATIEN TS. Clammer ID - EMERSONSpecimen slightly ictericPROTHROMBIN TIME/[id number] 07:22:36 Test Item Value Reference Range Interpretation Comments PROTIME (BEAKER) 16.9 seconds 11.9-14.2 H (test code = 759) INR (BEAKER) (test 1.40 See_Comment [Automat ed message] code = 370) The system [employer] generated this result transmitted ref erence range: <=5.90. The reference range was not used to int erpret this result as normal/abnormal . RECOMMENDED COUMADIN/WARFARIN INR THERAPY RANGESSTANDARD DOSE: 2.0 - 3.0 Includes: PROPHYLAXIS for venous thrombosis, systemic embolization; TREATMENT for venous thrombosis and/or pulmonary embolus.HIGH RISK: Target INR is 2.5-3.5 for patients with mechanical heart valves.CBC W/PLT COUNT & AUTO [id number] 07:09:25 Test Item Value Reference Range Interpretation [...] (BEAKER) (test code = 2801) BASIC METABOLIC [id number] 10:56:30 Test Item Value Reference Range Interpretation [...] S NOT APPLICABLE FOR DIALYSIS PATIEN TS. Clammer ID - AMADOR FSpecimen slightly ictericHEPATIC FUNCTION [...] (test code = 28 U/L 6-55 347) Clammer ID - AMADOR FSpecimen slightly [id number] 10:28:14 Test Item Value Reference Range Interpretation Comments PARTIAL THROMBOPLASTIN TIME 34.9 seconds 22.5-36.0 (BEAKER) (test code = 760) PROTHROMBIN TIME/[id number] 10:27:34 Test Item Value Reference Range Interpretation Comments PROTIME (BEAKER) 17.4 seconds 11.9-14.2 H (test code = 759) INR (BEAKER) (test 1.45 See_Comment [Automat ed message] code = 370) The system [employer] generated this result transmitted ref erence range: <=5.90. The reference range was not used to int erpret this result as normal/abnormal . RECOMMENDED COUMADIN/WARFARIN INR THERAPY RANGESSTANDARD DOSE: 2.0 - 3.0 Includes: PROPHYLAXIS for venous thrombosis, systemic embolization; TREATMENT for venous thrombosis and/or pulmonary embolus.HIGH RISK: Target INR is 2.5-3.5 for patients with mechanical heart valves.CBC W/PLT COUNT & AUTO [id number] 10:14:45 Test Item Value Reference Range Interpretation [...] (BEAKER) (test code = 2801) MR, ABDOMEN, [id number] 12:00:00REFERRING : ANIL LEROYT Include Abdominal VesselsCHI [facility]Name: [facility] : 1955 Sex: [...] (series 3, image 22) is likely account development representative of a cyst, unchanged.*An 11 mm [...] Mckeon Verified Date/Time: 01/25/2021 12:00:12 Reading Location: [address] Transitional Reading Room Hepatitis C RNA Quantitative 2021-01-22 16:10:00 Test Item Value Reference Range Interpretation Comments HCV PCR, Quantitative HCV RNA not detected HCV RNA not (test code = 20881-0) detected MADALYN (test code = MADALYN) This test uses a Real-Time Polymerase Chain Reaction (RT-PCR) methodology and was performed using KHOA Ampliprep/KHOA TaqMan HCV test kit version 2.0 ([employer]). Reportable range for this assay is 15 - 100,000,000 IU per mL (1.18 - 8.00 Log IU/mL). Lab Interpretation Normal (test code = 75409-3) [facility], [id number] 16:10:00 Test Item Value Reference Range Interpretation Comments HCV RESULT COMPONENT HCV RNA not detected HCV RNA not detected (BEAKER) (test code = 2699) This test uses a Real-Time Polymerase Chain Reaction (RT-PCR) methodology and was performed using KHOA Ampliprep/KHOA TaqMan HCV test kit version 2.0 ([employer]).Reportable range for this assay is 15 - 100,000,000 IU per mL (1.18 - 8.00 Log IU/mL).CT, CHEST, WITHOUT [id number] 15:56:00 REFERRING MD: ANIL SALVADOR Mets work up [facility] : 1955 Sex: MFINAL [...] MDReport Verified Date/Time: 01/22/2021 15:56:37 Reading Location: [facility] Diagnostic Imaging Reading Room - [place] [address] ALPHA FETOPROTEIN (AFP), TUMOR [id number] 11:33:00 Test Item Value Reference Range Interpretation Comments ALPHA-FETOPROTEIN (BEAKER) (test 2.1 ng/mL <10.0 code = 1094) Clammer ID - ELOY MBASIC METABOLIC [id number] 11:23:00 Test Item Value Reference Range Interpretation [...] S NOT APPLICABLE FOR DIALYSIS PATIEN TS. Clammer ID - ELOY EPATIC FUNCTION [id number] 11:23:00 Test Item Value Reference Range Interpretation [...] (test code = 23 U/L 6-55 347) Clammer ID - ELOY MCBC W/PLT COUNT & AUTO [id number] 10:58:00 Test Item Value Reference Range Interpretation [...] PERCENT (BEAKER) (test code = 2801) PROTHROMBIN TIME/[id number] 10:46:00 Test Item Value Reference Range Interpretation Comments PROTIME (MADISON) 16.4 seconds 11.9-14.2 H (test code = 759) INR (MADISON) (test 1.35 See_Comment [Automat ed message] code = 370) The system [employer] generated this result transmitted ref erence range: <=5.90. The reference range was not used to int erpret this result as normal/abnormal . RECOMMENDED COUMADIN/WARFARIN INR THERAPY RANGESSTANDARD DOSE: 2.0 - 3.0 Includes: PROPHYLAXIS for venous thrombosis, systemic embolization; TREATMENT for venous thrombosis and/or pulmonary embolus.HIGH RISK: Target INR is 2.5-3.5 for patients with mechanical heart valves.ANG, EMBOLIZATION, EXTENSIVE - [id number] 08:41:00REFERRING MD: ANIL SALVADOR For TACEReason for Exam:->HCC, [facility]RHOSIS [facility] : 1955 Sex: MFINAL [...] blood loss: < 5 cc. Specimen: None. tool planer set up operator: Xiang Colindres MD.. Egg Trayer: None. Fluoroscopy Time: 14.2 mi n.Reference Air Kerma (Ka, r): 1613 mGy. The skin was anesthetized with lidocaine. The right common femoral artery was accessed using a 21-gauge needle and a 0.018 inch microwire. A 4 Ghanaian catheter was placed over the wire and a 0.035 inch wire was placed through the catheter into the abdominal aorta. A 5 Ghanaian sheath was placed over the wire. A 5 Ghanaian SOS-II catheter was used to select the celiac artery for digital subtraction angiogram which demonstrated patent portal flow. A microcatheter was subsequently used to subselect the right hepatic artery and more distal segment eight arteries for diagnostic angiograms. After supply to the segment eight tumor was verified chemoembolization was perf ormed into a segment eight artery approximately 50 mg of doxorubicin loaded on LC beads was administered. Follow-up digital subtraction angiogram was performed. Left hepatic artery proximal and distal selective angiograms were performed in an attempt to identify the segment three lesion which was unsuc cessful. The catheter was removed. Injection was performed through the right femoral sheath for a DSA run. The arteriotomy was closed and hemostasis was obtained with a Angio-Seal closure device. Vitalsigns were monitored throughout the procedure by a nurse, and remained stable. The patient toleratedthe procedure well and left the department in [...] MDReport Verified Date/Time: 11/27/2020 08:41:43 BASIC METABOLIC [id number] 08:59:00 Test Item Value Reference Range Interpretation [...] S NOT APPLICABLE FOR DIALYSIS PATIEN TS. Clammer ID - PIDAMIAN MEGHANNpecimen slightly ictericHEPATIC FUNCTION [id number] 08:59:00 Test Item Value Reference Range Interpretation [...] (test code = 24 U/L 6-55 347) Clammer ID - PIDAMIAN LSpecimen slightly ictericPROTHROMBIN TIME/[id number] 08:49:00 Test Item Value Reference Range Interpretation Comments PROTIME (BEAKER) 16.7 seconds 11.9-14.2 H (test code = 759) INR (BEAKER) (test 1.37 See_Comment [Automat ed message] code = 370) The system [employer] generated this result transmitted ref erence range: <=5.90. The reference range was not used to int erpret this result as normal/abnormal . RECOMMENDED COUMADIN/WARFARIN INR THERAPY RANGESSTANDARD DOSE: 2.0 - 3.0 Includes: PROPHYLAXIS for venous thrombosis, systemic embolization; TREATMENT for venous thrombosis and/or pulmonary embolus.HIGH RISK: Target INR is 2.5-3.5 for patients with mechanical heart valves.CBC W/PLT COUNT & AUTO [id number] 08:49:00 Test Item Value Reference Range Interpretation [...] 0-1 PERCENT (BEAKER) (test code = 2801) [id number] 08:49:00 Test Item Value Reference Range Interpretation Comments PARTIAL THROMBOPLASTIN TIME 34.6 seconds 22.5-36.0 (BEAKER) (test code = 760) HEPATITIS C PCR, [id number] 19:54:00 Test Item Value Reference Range Interpretation Comments HCV RESULT COMPONENT HCV RNA not detected HCV RNA not detected (BEAKER) (test code = 2699) This test uses a Real-Time Polymerase Chain Reaction (RT-PCR) methodology and was performed using KHOA Ampliprep/KHOA TaqMan HCV test kit version 2.0 ([employer]Reportable range for this assay is 15 - 100,000,000 IU per mL (1.18 - 8.00 Log IU/mL).BASIC METABOLIC [id number] 12:10:00 Test Item Value Reference Range Interpretation [...] S NOT APPLICABLE FOR DIALYSIS PATIEN TS. Clammer ID - FSEHEPATIC FUNCTION [id number] 12:10:00 Test Item Value Reference Range Interpretation [...] (test code = 26 U/L 6-55 347) Clammer ID - FSECBC W/PLT COUNT & AUTO [id number] 12:01:00 Test Item Value Reference Range Interpretation [...] 0-1 GRANULOCYTES-RELATIVE PERCENT (BEAKER) (test code = 3881) PROTHROMBIN TIME/[id number] 11:53:00 Test Item Value Reference Range Interpretation Comments PROTIME (BEAKER) 16.3 seconds 11.9-14.2 H (test code = 759) INR (BEAKER) (test 1.35 See_Comment [Automat ed message] code = 370) The system [employer] generated this result transmitted ref erence range: [...] WHOLE BODY 2020-10-08 17:40:00REFERRING : ANIL SALVADOR [facility] : 1955 Sex: MFINAL REPORT PROCEDURE: BONE SCAN, WHOLE BODY CPT CODE: 11572 INDICATION: Hepatocellular carcinoma PROTOCOL: 21.0 mCi of [...] abdominal MRI of 09/01/2020. Signed: Dre Luna MDRephca midwest division Verified Date/Time: 10/08/2020 17:40:47 Reading Location: [address] [address] Reading Room CT, CHEST, WITHOUT [id number] 12:54:00REFERRING : ANIL SALVADOR [facility] : 1955 Sex: MFINAL [...] Dios Verified Date/Time: 10/08/2020 12:54:21 Reading Location: [address] Body Reading Room ALPHA FETOPROTEIN (AFP), TUMOR [id number] 12:52:00 Test Item Value Reference Range Interpretation Comments ALPHA-FETOPROTEIN (BEAKER) (test 2.5 ng/mL <10.0 code = 1094) Clammer ID - DEBORAH [facility] METABOLIC [id number] 11:26:00 Test Item Value Reference Range Interpretation [...] S NOT APPLICABLE FOR DIALYSIS PATIEN TS. Clammer ID - KRISHNA LHEPATIC FUNCTION [id number] 11:26:00 Test Item Value Reference Range Interpretation [...] (test code = 29 U/L 6-55 347) Clammer ID - KRISHNA LCBC W/PLT COUNT & AUTO [id number] 11:14:00 Test Item Value Reference Range Interpretation [...] PERCENT (BEAKER) (test code = 2801) PROTHROMBIN TIME/[id number] 11:12:00 Test Item Value Reference Range Interpretation Comments PROTIME (BEAKER) 16.7 seconds 11.9-14.2 H (test code = 759) INR (BEAKER) (test 1.39 See_Comment [Automat ed message] code = 370) The system [employer] generated this result transmitted ref erence range: [...] for patients wiht mechanical heart valves.MR, ABDOMEN, [id number] 16:24:00 REFERRING MD: ANIL SALVADOR Include Abdominal VesselsUnlisted Reason for Exam - Click Yes and EnterReason Below->YesUnlisted Reason for Exam->awaiting organ transplant, cirrhosis, screening forcancer [facility] : 1955 Sex: MFINAL [...] sized right pleural effusion Signed: Tawanda Alvarez [facility] Verified Date/Time: 09/02/2020 16:24:23 ALPHA FETOPROTEIN (AFP), TUMOR [id number] 16:57:00 Test Item Value Reference Range Interpretation Comments ALPHA-FETOPROTEIN (BEAKER) (test code < ng/mL <10.0 = 1094) Clammer ID - BSBASI METABOLIC [id number] 14:50:00 Test Item Value Reference Range Interpretation [...] S NOT APPLICABLE FOR DIALYSIS PATIEN TS. Clammer ID - EDASISpecimen slightly ictericHEPATIC FUNCTION [id number] 14:50:00 Test Item Value Reference Range Interpretation [...] (test code = 26 U/L 6-55 347) Clammer ID - EDASISpecimen slightly ictericCBC W/PLT COUNT & AUTO [id number] 14:45:00 Test Item Value Reference Range Interpretation [...] PERCENT (BEAKER) (test code = 2801) PROTHROMBIN TIME/[id number] 14:40:00 Test Item Value Reference Range Interpretation Comments PROTIME (BEAKER) 17.6 seconds 11.9-14.2 H (test code = 759) INR (BEAKER) (test 1.49 See_Comment [Automat ed message] code = 370) The system [employer] generated this result transmitted ref erence range: [...] for patients wiht mechanical heart valves.Chest 1 [id number] 14:03:55 Small right pleural effusion with right [...] effusion with right basilar pneumonia and/oratelectasis.RL: 7000 [facility] PasoTrmethodist [facility] [id number] 13:32:55 Test Item Value Reference Range Interpretation Comments TROPONIN I (test <0.012 See_Comment [Automated code = 1021463988) message] The system which generated this result [...] ? Lab Interpretation Normal (test code = 88028-0) [facility] PasoN-TERMINAL [id number] 13:29:55 Test Item Value Reference Range Interpretation Comments NT-proBNP (test code 119 pg/mL See_Comment [Autom ated = 4385646012) message] The system which generated this result transmitted reference range : <=125. The reference range was not used to interpret this result as normal/abnormal . MADALYN (test code = MADALYN) Biotin has been reported to cause a negative bias, interpret results relative to patient's use of biotin. Lab Interpretation Normal (test code = 19416-4) [facility] PasoCOVID-19 (ID NOW RAPID TESTING)2020-08-19 13:23:14 Test Item Value Reference Range Interpretation Comments SARS-CoV-2 Rapid ID NOW Not Detected Not Detected (test code = 47757-9) MADALYN (test code = MADALYN) ID NOW COVID-19 Assay is an isothermal nucleic acid amplification test intended for the qualitative detection of nucleic acid from SARS-CoV-2 viral RNA in nasopharyngeal (HELP DESK ADMINISTRATOR) specimens. It is used under Emergency Use [...] indicated. Lab Interpretation Normal (test code = 57529-3) [facility] Metabolic Panel (NA, K, CL, CO2, GLUCOSE, BUN, CREATININE, CA)2020-08-19 13:21:13 Test Item Value Reference Range Interpretation Comments NA (test code = 135 mmol/L 135-145 0778211491) K (test code = 4.1 mmol/L 3.5-5.0 9159536613) CL (test code = 106 mmol/L 98-108 9338363733) CO2 TOTAL (test code = 24 mmol/L 23-31 2677766005) AGAP (test code = 2-16 9231466741) BUN (test code = 7 mg/dL 7-23 6564033364) GLUCOSE (test code = 216 mg/dL 70-110 H 5151117651) CREATININE (test code = 0.59 mg/dL 0.60-1.25 L 6841986640) CALCIUM (test code = 8.2 mg/dL 8.6-10.6 L 0357670167) eGFR Calculation mL/min/1.73m2 (Non-) (test code = 2351318751) eGFR Calculation mL/min/1.73m2 () (test code = 4123649990) MADALYN (test code = MADALYN) Association of [...] tests). Lab Interpretation Abnormal (test code = 04124-1) [facility] PasoHepatic Function Panel (ALB, T.PRO, BILI T, BU/BC, ALT, AST, ALK PHOS)2020-08-19 13:21:12 Test Item Value Reference Range Interpretation Comments TOTAL BILI (test code = 0264725245) 1.9 mg/dL 0.1-1.1 H BILI UNCON (test code = 0049957344) 1.7 mg/dL 0.1-1.1 H BILI CONJ (test code = 1991430360) 0.0 mg/dL 0.0-0.3 T PROTEIN (test code = 6262521479) 6.3 g/dL 6.3-8.2 ALBUMIN (test code = 9625209650) 3.0 g/dL 3.5-5.0 L ALK PHOS (test code = 1432409674) 162 U/L 34-122 H ALTv (test code = 1742-6) 25 U/L 5-50 AST(SGOT) (test code = 6904559865) 41 U/L 13-40 H Lab Interpretation (test code = Abnormal 69728-3) [facility] PasoLipase [id number] 13:21:12 Test Item Value Reference Range Interpretation Comments LIPASE (test code = 3777709343) 145 U/L 0-220 Lab Interpretation (test code = Normal 72979-8) [facility] PasoCBC with [id number] 13:17:56 Test Item Value Reference Range Interpretation [...] RDW-SD (test code = 48.3 fL 38.5-51.6 92587-9) RDW-CV (test code = 21.4 % 12.1-15.4 H 788-0) PLT (test code = See_Comment L [Automated 777-3) message] The sy stem which generated this result transmitted reference range : 150 - 328 10*3/ ?L. The reference r mela was not used to interpret this result as normal/abnormal . MPV (test code = Not Measure d 85403-9) IPF % (test code = 2.3 % 1.2-10.7 Platelet count 6305042244) measured by fluorescence method. NRBC/100 WBC (test See_Comment [Automat ed code = 4329861721) message] The system which generated this result transmitted reference range : 0.0 - 10.0 /100 WBCs. The refer ence range was not u sed to interpret th is result as normal/abnormal . NRBC x10^3 (test code <0.01 See_Comment [Auto mated = 0218365986) message] The s ystem which generated this result transmitted reference range : 10*3/?L. The reference range was not used to interpret this result as normal/abnormal . GRAN MAT (NEUT) % 56.4 % (test code = 770-8) IMM GRAN % (test code 0.20 % = 5591499159) LYMPH % (test code = 27.6 % 736-9) MONO % (test code = 10.7 % 5905-5) EOS % (test code = 3.7 % 713-8) BASO % (test code = 1.4 % 706-2) GRAN MAT x10^3(ANC) 2.47 10*3/uL 1.99-6.95 (test code = 8511975133) IMM GRAN x10^3 (test <0.03 0.00-0.06 code = 9567924697) LYMPH x10^3 (test code 1.21 10*3/uL 1.09-3.23 = 731-0) MONO x10^3 (test code 0.47 10*3/uL 0.36-1.02 = 742-7) EOS x10^3 (test code = 0.16 10*3/uL 0.06-0.53 711-2) BASO x10^3 (test code 0.06 10*3/uL 0.01-0.09 = 704-7) Lab Interpretation Abnormal (test code = 64318-9) [facility] PasoPROTHROMBIN TIME / [id number] 01:49:00 Test Item Value Reference Range Interpretation [...] tions. Lab Interpretation (test Abnormal code = 97844-1) [facility] PasoMAGNESIUM2021-01-29 01:27:00 Test Item Value Reference Range Interpretation Comments MAGNESIUM (test code = 8919516818) 1.6 mg/dL 1.7-2.4 L Lab Interpretation (test code = Abnormal 91296-0) [facility] PasoAMMONIA, [id number] 01:26:00 Test Item Value Reference Range Interpretation Comments AMMONIA (test code = 9998572338) 37 umol/L 9-33 H Lab Interpretation (test code = Abnormal 65358-2) [facility] PasoUrinalysis2021-01-29 00:30:00 Test Item Value Reference Range Interpretation Comments APPEARANCE (test code = Clear Clear 0970352195) COLOR (test code = Addison Yellow A 6608612881) PH (test code = 4.8-8.0 9107418289) SP GRAVITY (test code = 1.003-1.030 7358729321) GLU U QUAL (test code = Normal Normal 7566723381) BLOOD (test code = Negative Negative INTERFERE NCE FROM 8525012392) ASCORBIC ACID M AY CAUSE FALSE NEG ATIVE RESULT KETONES (test code = Negative Negative 7915513791) PROTEIN (test code = Negative Negative 2887-8) UROBILIN (test code = 4.0 mg/dL Normal A 8062673875) BILIRUBIN (test code = Negative Negative 2688173707) NITRITE (test code = Negative Negative 9239418436) LEUK KIKI (test code = Negative Negative 5467966128) RBC/HPF (test code = See_Comment [Autom ated message] 4595200708) The system [employer] generated this result transmitted ref erence range: 0 - 3 HP F. The reference range was not used to int erpret this result as normal/abnormal . WBC/HPF (test code = See_Comment [Autom ated message] 4304880624) The system [employer] generated this result transmitted ref erence range: 0 - 5 HP F. The reference range was not used to int erpret this result as normal/abnormal . BACTERIA (test code = Negative Negative 9004193592) MUCOUS (test code = Slight Negative LPF A 8530433648) SQ EPITH (test code = HPF 8128383426) CA OXALATE (test code = See_Comment [Au tomated message] 9210821861) The system [employer] generated this result transmitted ref erence range: <=1 HPF. The reference range was not used to int erpret this result as normal/abnormal . TRANS EPI (test code = <1 See_Comment [Aut omated message] 5894646378) The system [employer] generated this result transmitted ref erence range: <=1 HPF. The reference range was not used to int erpret this result as normal/abnormal . Lab Interpretation Abnormal (test code = 56462-3) [facility] 1 [id number] 00:22:38Elevation of the right hemidiaphragm of moderate [...] [facility] [id number] 00:18:00 Test Item Value Reference Range Interpretation Comments TROPONIN I (test <0.012 See_Comment [Automated code = 7310926752) message] The system which generated this result [...] ? Lab Interpretation Normal (test code = 32091-7) [facility] PasoN-TERMINAL [id number] 00:15:00 Test Item Value Reference Range Interpretation Comments NT-proBNP (test code 175 pg/mL See_Comment H [Autom ated = 7600644364) message] The system which generated this result transmitted reference range : <=125. The reference range was not used to interpret this result as normal/abnormal . MADALYN (test code = MADALYN) Biotin has been reported to cause a negative bias, interpret results relative to patient's use of biotin. Lab Interpretation Abnormal (test code = 79644-6) [facility] PasoCOVID-19 (ID NOW RAPID TESTING)2020-06-26 00:08:00 Test Item Value Reference Range Interpretation Comments SARS-CoV-2 Rapid ID NOW Not Detected Not Detected (test code = 79534-1) MADALYN (test code = MADALYN) ID NOW COVID-19 Assay is an isothermal nucleic acid amplification test intended for the qualitative detection of nucleic acid from SARS-CoV-2 viral RNA in nasopharyngeal (HELP DESK ADMINISTRATOR) specimens. It is used under Emergency Use [...] indicated. Lab Interpretation Normal (test code = 07644-9) [facility] Metabolic Panel (NA, K, CL, CO2, GLUCOSE, BUN, CREATININE, CA)2020-06-26 00:06:00 Test Item Value Reference Range Interpretation Comments NA (test code = 137 mmol/L 135-145 1724773338) K (test code = 3.4 mmol/L 3.5-5 L 5988291921) CL (test code = 104 mmol/L 98-108 1503418655) CO2 TOTAL (test code = 26 mmol/L 23-31 2789040242) AGAP (test code = 2-16 3008021257) BUN (test code = 6 mg/dL 7-23 L 1144359309) GLUCOSE (test code = 118 mg/dL 70-110 H 3874144534) CREATININE (test code = 0.60 mg/dL 0.6-1.25 9381176462) CALCIUM (test code = 7.9 mg/dL 8.6-10.6 L 7110229845) eGFR Calculation mL/min/1.73m2 (Non-) (test code = 3699015890) eGFR Calculation mL/min/1.73m2 () (test code = 6753769614) MADALYN (test code = MADALYN) Association of [...] tests). Lab Interpretation Abnormal (test code = 55691-6) [facility] (ALB, T.PRO, BILI T, BU/BC, ALT, AST, ALK PHOS)2020-06-26 00:06:00 Test Item Value Reference Range Interpretation Comments TOTAL BILI (test code = 8326395072) 2.2 mg/dL 0.1-1.1 H BILI UNCON (test code = 6282429812) 1.8 mg/dL 0.1-1.1 H BILI CONJ (test code = 7115743686) 0.0 mg/dL 0-0.3 T PROTEIN (test code = 4126186410) 6.8 g/dL 6.3-8.2 ALBUMIN (test code = 4498531439) 3.1 g/dL 3.5-5 L ALK PHOS (test code = 5602938291) 162 U/L 34-122 H ALTv (test code = 1742-6) 22 U/L 5-50 AST(SGOT) (test code = 9909649978) 42 U/L 13-40 H Lab Interpretation (test code = Abnormal 99381-9) [facility] Pas[facility] [id number] 00:06:00 Test Item Value Reference Range Interpretation Comments LIPASE (test code = 6734139872) 156 U/L 0-220 Lab Interpretation (test code = Normal 86410-9) [facility] with [id number] 00:00:00 Test Item Value Reference Range Interpretation [...] RDW-SD (test code = 49.4 fL 38.5-51.6 28728-3) RDW-CV (test code = 21.6 % 12.1-15.4 H 788-0) PLT (test code = See_Comment L [Automated 777-3) message] The sy stem which generated this result transmitted reference range : 150 - 328 10*3/ ?L. The reference r mela was not used to interpret this result as normal/abnormal . MPV (test code = Not Measure d 27872-5) IPF % (test code = 1.9 % 1.2-10.7 Platelet count 8748384812) measured by fluorescence method. NRBC/100 WBC (test See_Comment [Automat ed code = 5373670159) message] The system which generated this result transmitted reference range : 0.0 - 10.0 /100 WBCs. The refer ence range was not u sed to interpret th is result as normal/abnormal . NRBC x10^3 (test code <0.01 See_Comment [Auto mated = 3413100528) message] The s ystem which generated this result transmitted reference range : 10*3/?L. The reference range was not used to interpret this result as normal/abnormal . GRAN MAT (NEUT) % 44.8 % (test code = 770-8) IMM GRAN % (test code 0.20 % = 7525993537) LYMPH % (test code = 37.2 % 736-9) MONO % (test code = 13.6 % 5905-5) EOS % (test code = 2.7 % 713-8) BASO % (test code = 1.5 % 706-2) GRAN MAT x10^3(ANC) 2.47 10*3/uL 1.99-6.95 (test code = 5702383630) IMM GRAN x10^3 (test <0.03 0-0.06 code = 3485085134) LYMPH x10^3 (test code 2.05 10*3/uL 1.09-3.23 = 731-0) MONO x10^3 (test code 0.75 10*3/uL 0.36-1.02 = 742-7) EOS x10^3 (test code = 0.15 10*3/uL 0.06-0.53 711-2) BASO x10^3 (test code 0.08 10*3/uL 0.01-0.09 = 704-7) Lab Interpretation Abnormal (test code = 98974-4) [facility] [id number] 12:02:00 Test Item Value Reference Range Interpretation Comments SCAN RESULT (test code = 3943270) SARS-COV2/RT-PCR ([facility])2020-03-13 20:20:00 Test Item Value Reference Range Interpretation Comments SARS-COV2/RT-PCR (test Negative Not Detected, Negative, code = 0774184) See external report for linked test SARS-COV-2 PERFORMING LAB [facility] KAT (test code = 7636907) Negative result for this test determines that [...] of the Act.Fact Sheet for Healthcare Prov iders:https://www.WinView/sites/default/files/product/documents/Fact_Sheet_HC _Pmztsrkgh_Hoib_YVSI-GaX-4.pdfFact Sheet for Healthcare Patients:https://www.WinView/sites/default/files/product/docume nts/Arde_Plypg_Cbrksozh_Bqpc_PXTI-YiR-3.pdfPerforming Laboratory:[facility], [place] [address]IR, ABDOMEN, WITH 2020-03-13 14:43:00REFERRING : ANIL SALVADOR Include Abdominal VesselsUnlisted Reason for Exam - Click Yes and EnterReason Below- >YesUnlisted Reason for Exam->listed for liver transplant, screening [facility]ARD[facility] : 1955 Sex: MFINAL [...] in the liver. Spleen is enlarged measuring gvjnscbpsloqi78.8 x 4.9 x 11.4 cm. The splenic, [...] mass.3. Trace ascites. Signed: Brenda De Dios [facility] Verified Date/Time: 03/13/2020 14:43:24 ALPHA FETOPROTEIN (AFP), TUMOR MARKER 2020-03-13 13:25:00 Test Item Value Reference Range Interpretation Comments ALPHA-FETOPROTEIN (BEAKER) (test code < ng/mL <10.0 = 1094) Clammer ID - AAHAMIDCOMPREHENSIVE METABOLIC [id number] 12:54:00 Test Item Value Reference Range Interpretation [...] S NOT APPLICABLE FOR DIALYSIS PATIEN TS. Clammer ID - AAHAMIDRAD, BONE DENSITY [id number] 12:46:00REFERRING MD: ANIL SALVADOR Reason for Exam:->on liver transplant [facility] list [facility] Schwartz : 1955 Sex: MFINAL REPORT Bone density study, 03/13/2020 Clinical History: Screening Bone mineral density measurementLumbar spine1.110 gm/pr1Ppictzb neck0.918 gm/cm2 Standard deviation from young adult [...] Rivera Verified Date/Time: 03/13/2020 12:46:53 Reading Location: [address] Reading Room BILIRUBIN, [id number] 12:38:00 Test Item Value Reference Range Interpretation Comments BILIRUBIN DIRECT (BEAKER) (test 1.0 mg/dL 0.1-0.5 H code = 706) Clammer ID - AAHAMIDPROTHROMBIN TIME/[id number] 12:23:00 Test Item Value Reference Range Interpretation [...] mechanical heart valves.CBC W/PLT COUNT & AUTO [id number] 12:16:00 Test Item Value Reference Range Interpretation [...] PERCENT (BEAKER) (test code = 2801) BLOOD [id number] 20:00:00 Test Item Value Reference Range Interpretation Comments CULTURE (BEAKER) (test No growth in 5 days code = 1095) BLOOD [id number] 20:00:00 Test Item Value Reference Range Interpretation Comments CULTURE (BEAKER) (test No growth in 5 days code = 1095) POCT-GLUCOSE [id number] 07:47:00 Test Item Value Reference Range Interpretation Comments POC-GLUCOSE METER 121 mg/dL 70-110 H : TESTED A T [facility] 6720 (BEAKER) (test code = [facility], 153) 573[address]: Clammer/Techni zaire ID = [id number] for RADHA GARVEY HEPATIC FUNCTION [id number] 07:24:00 Test Item Value Reference Range Interpretation [...] (test code = 25 U/L 6-55 347) Clammer ID - PIAYA LSpecimen slightly ictericPOCT-GLUCOSE [id number] 22:18:00 Test Item Value Reference Range Interpretation Comments POC-GLUCOSE METER 143 mg/dL 70-110 H : TESTED A T [facility] 6720 (BEAKER) (test code = [facility], 1538) 94660: Clammer/Techni zaire ID = [id number] for CA RBAJAL, ANU POCT-GLUCOSE [id number] 17:24:00 Test Item Value Reference Range Interpretation Comments POC-GLUCOSE METER 214 mg/dL 70-110 H : TESTED A T [facility] 6720 (BEAKER) (test code = [facility], 1538) 92939: Clammer/Techni zaire ID = [id number] for SA NTOS, WADE POCT-GLUCOSE [id number] 13:32:00 Test Item Value Reference Range Interpretation Comments POC-GLUCOSE METER 127 mg/dL 70-110 H : TESTED A T [facility] 6720 (BEAKER) (test code = [facility], 1538) 05254: Clammer/Techni zaire ID = [id number] for WADE MCMULLEN POCT-GLUCOSE [id number] 12:08:00 Test Item Value Reference Range Interpretation Comments POC-GLUCOSE METER 124 mg/dL 70-110 H : TESTED A T [facility] 6720 (BEAKER) (test code = [facility], 1538) 44693: Clammer/Techni zaire ID = [id number] for CHARI RAZO POCT-GLUCOSE [id number] 08:16:00 Test Item Value Reference Range Interpretation Comments POC-GLUCOSE METER 117 mg/dL 70-110 H : TESTED A T [facility] 6720 (BEAKER) (test code = [facility], 1538) 59644: Clammer/Techni zaire ID = [id number] for WADE MCMULLEN BASIC METABOLIC [id number] 06:13:00 Test Item Value Reference Range Interpretation [...] S NOT APPLICABLE FOR DIALYSIS PATIEN TS. Clammer ID - KRISHNA LSpecimen slightly ictericHEPATIC FUNCTION [id number] 06:13:00 Test Item Value Reference Range Interpretation [...] (test code = 27 U/L 6-55 347) Clammer ID - KRISHNA ZAVALETApecimen slightly ictericPROTHROMBIN TIME/[id number] 05:46:00 Test Item Value Reference Range Interpretation [...] mechanical heart valves.CBC W/PLT COUNT & AUTO [id number] 05:21:00 Test Item Value Reference Range Interpretation [...] PERCENT (BEAKER) (test code = 2801) POCT-GLUCOSE [id number] 22:38:00 Test Item Value Reference Range Interpretation Comments POC-GLUCOSE METER 181 mg/dL 70-110 H : TESTED Lana Davis [facility] 6720 (BEAKER) (test code = [facility], 1538) 11138: Clammer/Techni zaire ID = [id number] for CAREY LINARESRON (CELLAVISION MANUAL DIFF)2019-12-28 15:15:00 Test Item Value [...] CONCENTRATION Decreased (CELLAVISION)(BEAKER) (test code = 3438) Clammer ID - Nima Villafuerte comments: Slide comments:CBC W/PLT COUNT & AUTO [id number] 15:11:00 Test Item Value Reference Range Interpretation [...] PERCENT (BEAKER) (test code = 2801) POCT-GLUCOSE [id number] 10:15:00 Test Item Value Reference Range Interpretation Comments POC-GLUCOSE METER 178 mg/dL 70-110 H : TESTED A T [facility] 6720 (BEAKER) (test code = [facility], 1538) 22838: Clammer/Techni zaire ID = [id number] for DELPHINE JUAREZ POCT-GLUCOSE [id number] 09:08:00 Test Item Value Reference Range Interpretation Comments POC-GLUCOSE METER 167 mg/dL 70-110 H : TESTED A T [facility] 6720 (BEAKER) (test code = [facility], 1538) 89224: Clammer/Techni zaire ID = [id number] for SAMIRA COWAN BASIC METABOLIC [id number] 07:06:00 Test Item Value Reference Range Interpretation [...] S NOT APPLICABLE FOR DIALYSIS PATIEN TS. Clammer ID - KRISHNA MEGHANNpecimen slightly ictericHEPATIC FUNCTION [id number] 07:06:00 Test Item Value Reference Range Interpretation [...] (test code = 20 U/L 6-55 347) Clammer ID Andrea KELLER Poncho slightly ictericPOCT-GLUCOSE [id number] 22:05:00 Test Item Value Reference Range Interpretation Comments POC-GLUCOSE METER 216 mg/dL 70-110 H : TESTED A T [facility] 6720 (BEAKER) (test code = [facility], 1538) 78434: Clammer/Techni zaire ID = [id number] for CH BOB, TY POCT-GLUCOSE [id number] 17:07:00 Test Item Value Reference Range Interpretation Comments POC-GLUCOSE METER 244 mg/dL 70-110 H : TESTED A T [facility] 6720 (BEAKER) (test code = [facility], 1538) 48888: Clammer/Techni zaire ID = [id number] for IB RAHIM, SERKALEM CBC W/PLT COUNT & AUTO [id number] 12:15:00 Test Item Value Reference Range Interpretation [...] PERCENT (BEAKER) (test code = 2801) POCT-GLUCOSE [id number] 11:54:00 Test Item Value Reference Range Interpretation Comments POC-GLUCOSE METER 226 mg/dL 70-110 H : TESTED A T [facility] 6720 (BEAKER) (test code = [facility], 1538) 89702: Clammer/Techni zaire ID = [id number] for IB JEBM SERGRAHAMLEM BASIC METABOLIC [id number] 08:18:00 Test Item Value Reference Range Interpretation [...] S NOT APPLICABLE FOR DIALYSIS PATIEN TS. Clammer ID - NTPPOCT-GLUCOSE [id number] 08:07:00 Test Item Value Reference Range Interpretation Comments POC-GLUCOSE METER 166 mg/dL 70-110 H : TESTED A T [facility] 6720 (BEAKER) (test code = [facility], 1538) 95312: Clammer/Techni zaire ID = [id number] for IB JEBM, ANUSHALEM HEPATIC FUNCTION [id number] 05:05:00 Test Item Value Reference Range Interpretation [...] (test code = 19 U/L 6-55 347) Clammer ID - EDASISpecimen slightly ictericPOCT-GLUCOSE [id number] 17:47:00 Test Item Value Reference Range Interpretation Comments POC-GLUCOSE METER 222 mg/dL 70-110 H : TESTED A T [facility] 6720 (BEAKER) (test code = [facility], 1538) 79763: Clammer/Techni zaire ID = [id number] for BRAXTON MORAN POCT-GLUCOSE [id number] 12:25:00 Test Item Value Reference Range Interpretation Comments POC-GLUCOSE METER 311 mg/dL 70-110 H : TESTED A T [facility] 6720 (BEAKER) (test code = [facility], 1538) 48075: Clammer/Techni zaire ID = [id number] for BRAXTON MORAN POCT-GLUCOSE [id number] 07:49:00 Test Item Value Reference Range Interpretation Comments POC-GLUCOSE METER 190 mg/dL 70-110 H : TESTED A T [facility] 6720 (BEAKER) (test code = [facility], 1538) 48807: Clammer/Techni zaire ID = [id number] for BRAXTON MORAN VITAMIN B12 AND [id number] 06:11:00 Test Item Value Reference Range Interpretation Comments VITAMIN B12 (BEAKER) (test code = 873 pg/mL 213-816 H 774) FOLATE (BEAKER) (test code = 362) 12.30 ng/mL >=7.00 Clammer ID - GABBYASIBASIC METABOLIC [id number] 05:21:00 Test Item Value Reference Range Interpretation [...] S NOT APPLICABLE FOR DIALYSIS PATIEN TS. Clammer ID - EDASIHEPATIC FUNCTION [id number] 05:21:00 Test Item Value Reference Range Interpretation [...] (test code = 19 U/L 6-55 347) Clammer ID - EDASICBC W/PLT COUNT & AUTO [id number] 05:12:00 Test Item Value Reference Range Interpretation [...] PERCENT (BEAKER) (test code = 2801) PROTHROMBIN TIME/[id number] 04:56:00 Test Item Value Reference Range Interpretation [...] 2.5-3.5 for patients wiht mechanical heart valves.POCT-GLUCOSE [id number] 22:11:00 Test Item Value Reference Range Interpretation Comments POC-GLUCOSE METER 195 mg/dL 70-110 H : TESTED A T [facility] 6720 (BEAKER) (test code = [place], 1538) 98950: Clammer/Techni zaire ID = [id number] for SAMIRA COWAN HEMOGLOBIN AND [id number] 16:15:00 Test Item Value Reference Range Interpretation Comments HEMOGLOBIN (BEAKER) (test code = 8.6 GM/DL 13.7-17.5 L 410) HEMATOCRIT (BEAKER) (test code = 30.2 % 40.1-51.0 L 411) Clammer ID - [id number] 13:02:00 Test Item Value Reference Range Interpretation Comments FERRITIN (BEAKER) (test code = 73.10 ng/mL 5.00-275.00 361) Clammer ID - EDASIIRON, TIBC, % SAT. (WITHOUT FERRITIN)2019-12-25 12:42:00 Test Item Value Reference Range Interpretation Comments IRON (BEAKER) (test code = 547) 29.0 ug/dL 40.0-160.0 L TOTAL IRON BINDING CAPACITY 151 ug/dL 250-450 L (BEAKER) (test code = 769) IRON % SATURATION (2) (BEAKER) 19 % 20-55 L (test code = 2590) Clammer ID - EDASICOMPREHENSIVE METABOLIC [id number] 06:44:00 Test Item Value Reference Range Interpretation [...] S NOT APPLICABLE FOR DIALYSIS PATIEN TS. Clammer ID - EDASICBC W/PLT COUNT & AUTO [id number] 05:55:00 Test Item Value Reference Range Interpretation [...] PERCENT (BEAKER) (test code = 2801) POCT-GLUCOSE [id number] 23:39:00 Test Item Value Reference Range Interpretation Comments POC-GLUCOSE METER 307 mg/dL 70-110 H : TESTED A T [facility] 6720 (BEAKER) (test code = [place], 1538) 82749: Clammer/Techni zaire ID = [id number] for Colt bobErendira (contrac t) RAD, CHEST, 1 VIEW, NON [id number] 18:52:00REFERRING : ANIL SALVADOR Reason for exam:->sobShould [...] Verified Date/Time: 12/24/2019 18:52:34 Reading Location: [facility] [id number] Consult Reading Room BASI METABOLIC PANEL 2019-06-04 [...] Specimen slightly ictericCBC W/PLT COUNT & AUTO [id number] 08:54:00 Test Item Value Reference Range Interpretation [...] (BEAKER) (test code = 2801) HEPATITIS C [id number] 12:25:00 Test Item Value Reference Range Interpretation Comments HEPATITIS C ANTIBODY (BEAKER) (test Reactive Nonreactive A code = 367) ALPHA FETOPROTEIN (AFP), TUMOR [id number] 15:45:00 Test Item Value Reference Range Interpretation Comments ALPHA-FETOPROTEIN (BEAKER) (test 2.7 ng/mL <10.0 code = 1094) BASIC METABOLIC [id number] 15:36:00 Test Item Value Reference Range Interpretation [...] DIALYSIS PATIEN TS. Specimen slightly ictericHEPATIC FUNCTION [id number] 15:35:00 Test Item Value Reference Range Interpretation [...] 21 U/L 6-55 347) Specimen slightly ictericPROTHROMBIN TIME/[id number] 15:00:00 Test Item Value Reference Range Interpretation [...] mechanical heart valves.CBC W/PLT COUNT & AUTO [id number] 14:53:00 Test Item Value Reference Range Interpretation [...] code = 2801) ALPHA FETOPROTEIN (AFP), TUMOR [id number] 14:10:00 Test Item Value Reference Range Interpretation Comments ALPHA-FETOPROTEIN (BEAKER) (test 2.7 ng/mL <10.0 code = 1094) BASIC METABOLIC [id number] 13:52:00 Test Item Value Reference Range Interpretation [...] DIALYSIS PATIEN TS. Specimen slightly ictericHEPATIC FUNCTION [id number] 13:52:00 Test Item Value Reference Range Interpretation [...] 24 U/L 6-55 347) Specimen slightly ictericPROTHROMBIN [id number] 13:49:00 Test Item Value Reference Range Interpretation [...] mechanical heart valves.CBC W/PLT COUNT & AUTO [id number] 13:35:00 Test Item Value Reference Range Interpretation [...] (test code = 2801) POCT HEMOGLOBIN A1C [id number] 21:30:00 Test Item Value Reference Range Interpretation Comments POCT HBA1C (test code = 4548-4) 7.4 % 4-6 A Lab Interpretation (test code = Abnormal 88130-2) [facility] HEMOGLOBIN A1C [id number] 21:30:00 Test Item Value Reference Range Interpretation Comments POCT HBA1C (test code = 4548-4) 7.4 % 4-6 A Lab Interpretation (test code = Abnormal 50863-6) [id number] 14:59:00 Test Item Value Reference Range Interpretation Comments T4 TOTAL (BEAKER) (test code = 895) 5.7 ug/dL 4.9-11.7 [id number] 13:20:00 Test Item Value Reference Range Interpretation Comments T3 TOTAL (BEAKER) (test code = 656) 113 ng/dL 48-159 CYTOMEGALOVIRUS ANTIBODY, [id number] 11:11:00 Test Item Value Reference Range Interpretation Comments CYTOMEGALOVIRUS, IGG (BEAKER) Positive Negative, Equivocal A (test code = 3429) CMV IgG Result Interpretation: </= 0.8 Al Negative 0.9-1.0 Al Equivocal >/=1.1 Al PositiveCYTOMEGALOVIRUS ANTIBODY, [id number] 11:11:00 Test Item Value Reference Range Interpretation Comments CYTOMEGALOVIRUS IGM ANTIBODY Negative Negative, Equivocal (BEAKER) (test code = 3437) CMV IgM Result Interpretation: </= 0.8 Al Negative 0.9-1.0 Al Equivocal >/= 1.1 Al PositiveEBV ANTIBODY, [id number] 11:08:00 Test Item Value Reference Range Interpretation Comments EDENILSON TAVERAS VIRAL CAPSID Positive Negative, Equivocal A ANTIGEN IGG (BEAKER) (test code = 3415) Edenilson Taveras Viral Capsid Antigen IgG Result Interpretation: </= 0.8 Al Negative 0.9-1.0 Al Equivocal >/= 1.1 Al PositiveEBV ANTIBODY, [id number] 11:08:00 Test Item Value Reference Range Interpretation Comments EDENILSON TAVERAS VIRAL CAPSID Negative Negative, Equivocal ANTIGEN IGM (BEAKER) (test code = 3418) Edenilson Taveras Viral Capsid Antigen IgM Result Interpretation: </= 0.8 Al Negative 0.9-1.0 Al Equivocal >/= 1.1 Al PositiveVARICELLA ZOSTER ANTIBODY, [id number] 11:08:00 Test Item Value Reference Range Interpretation Comments VARICELLA ZOSTER IGG (AL) (BEAKER) > (test code = 3197) VARICELLA ZOSTER RESULT INTERPRETATIONS: <=0.8 Al Nonreactive: Presumed non- immune to VZV 0.9-1.0Al Equivocal >=1.1 Al Reactive: Presumed immune to VZV NHKJB-2-[id number] 13:11:00 Test Item Value Reference Range Interpretation Comments ALPHA-1 ANTITRYPSIN (BEAKER) 155.30 mg/dL 90.00-200.00 (test code = 502) HEMOGLOBIN [id number] 13:08:00 Test Item Value Reference Range Interpretation Comments HEMOGLOBIN A1C (BEAKER) (test code = 6.4 % 4.3-6.1 H 368) HEPATITIS A ANTIBODY, [id number] 12:51:00 Test Item Value Reference Range Interpretation Comments HEPATITIS A IGG ANTIBODY (BEAKER) Reactive Nonreactive A (test code = 2797) HEPATITIS C [id number] 12:51:00 Test Item Value Reference Range Interpretation Comments HEPATITIS C ANTIBODY (BEAKER) (test Reactive Nonreactive A code = 367) [id number] 12:48:00 Test Item Value Reference Range Interpretation Comments PROSTATE SPECIFIC ANTIGEN (BEAKER) 0.4 ng/mL 0.0-4.0 (test code = 844) HIV-1 ANTIGEN WITH HIV-1/2 [id number] 12:48:00 Test Item Value Reference Range Interpretation Comments HIV-1 ANTIGEN WITH HIV 1\\T\\2 Nonreactive Nonreactive ANTIBODY (2) (BEAKER) (test code = 2586) VITAMIN D, 32-[id number] 12:46:00 Test Item Value Reference Range Interpretation Comments VITAMIN D 25-OH (BEAKER) (test code 7.7 ng/mL 6.6-49.9 = 2764) Effective 03/08/2017: Reference Range ChangeNew: 6.6-49.9 ng/mL Previous: 13.0- 47.8 ng/mLRecommendedVitamin D Target Range: 30.0-40.0 ng/mLURINALYSIS W/ [id number] 11:55:00 Test Item Value Reference Range Interpretation [...] /LPF SOURCE(BEAKER) (test code = 2795) CRYPTOCOCCAL [id number] 11:10:00 Test Item Value Reference Range Interpretation Comments CRYPTOCOCCAL ANTIGEN, SERUM Negative Negative, Interference (BEAKER) (test code = 1828) [id number] 10:59:00 Test Item Value Reference Range Interpretation Comments THYROID STIMULATING HORMONE 2.10 uIU/mL 0.35-4.94 (BEAKER) (test code = 772) [id number] 10:59:00 Test Item Value Reference Range Interpretation Comments FERRITIN (BEAKER) (test code = 361) 69 ng/mL 5-275 [id number] 10:51:00 Test Item Value Reference Range Interpretation Comments RPR SCREEN (BEAKER) (test code = Nonreactive Nonreactive 420) [id number] 10:49:00 Test Item Value Reference Range Interpretation Comments TRANSFERRIN (BEAKER) (test code = 197 mg/dL 174-382 541) Specimen slightly [id number] 10:45:00 Test Item Value Reference Range Interpretation Comments MAGNESIUM (BEAKER) (test code = 1.5 mg/dL 1.6-2.6 L 627) [id number] 10:45:00 Test Item Value Reference Range Interpretation Comments PHOSPHORUS (BEAKER) (test code = 3.6 mg/dL 2.3-4.7 604) URIC [id number] 10:45:00 Test Item Value Reference Range Interpretation Comments URIC ACID (BEAKER) (test code = 4.8 mg/dL 2.6-7.2 773) Specimen slightly ictericCOMPREHENSIVE METABOLIC [id number] 10:45:00 Test Item Value Reference Range Interpretation [...] FOR DIALYSIS PATIEN TS. Specimen slightly ictericLIPID [id number] 10:45:00 Test Item Value Reference Range Interpretation [...] 160-189 Very High >=190 Specimen slightly ictericBILIRUBIN, [id number] 10:45:00 Test Item Value Reference Range Interpretation Comments BILIRUBIN DIRECT (BEAKER) (test 1.6 mg/dL 0.1-0.5 H code = 706) GAMMA GLUTAMYL TRANSFERASE (GGT)2018-12-20 10:45:00 Test Item Value Reference Range Interpretation Comments GAMMA GLUTAMYL TRANSFERASE (BEAKER) 33 U/L 9-64 (test code = 364) Specimen slightly [id number] 10:42:00 Test Item Value Reference Range Interpretation Comments PARTIAL THROMBOPLASTIN TIME 37.9 seconds 22.5-36.0 H (BEAKER) (test code = 760) PROTHROMBIN [id number] 10:36:00 Test Item Value Reference Range Interpretation [...] is 2.5-3.5 for patients wiht mechanical heart valves.[id number] 10:36:00 Test Item Value Reference Range Interpretation Comments ETHANOL (BEAKER) (test code = 400) < mg/dL <=10 [id number] 10:36:00 Test Item Value Reference Range Interpretation Comments FIBRINOGEN LEVEL (BEAKER) (test 207 mg/dl 225-434 L code = 658) BLOOD GAS, [id number] 10:35:00 Test Item Value Reference Range Interpretation [...] 21.0 % CBC W/PLT COUNT & AUTO [id number] 10:25:00 Test Item Value Reference Range Interpretation [...] PERCENT (BEAKER) (test code = 2801) CALCIUM, [id number] 10:20:00 Test Item Value Reference Range Interpretation Comments CALCIUM IONIZED (BEAKER) (test 1.05 mmol/L 1.12-1.27 L code = 698) PH, BLOOD (BEAKER) (test code = 7.41 1810) RAD, MANDIBLE, MIN 4 [id number] 16:56:00REFERRING MD: ANIL SALVADOR Reason for Exam:->pretransplant liver evaluationFINAL REPORT TECHNIQUE: Minimum four views of the mandible. INDICATION: pretransplant liver evaluation. COMPARISON: None. FINDINGS:No fracture or dislocation.No periapical lucencies.Caries of a maxillary molar, side indeterminate.Mild degenerative disc changes at C4-C5, C5-C6, andC6-C7. IMPRESSION: No periapical lucency. Caries of a maxillary molar, side indeterminate. Signed: Tawanda Alvarez MDReport Verified Date/Time: 12/19/2018 16:56:31 Reading Location: [address] Radiology Reading Room RAD, CHEST, 2 [id number] 15:51:00REFERRJB GOMEZ: ANIL SALVADOR Reason for Exam:- >pretransplant liver [...] MDReport Verified Date/Time: 12/19/2018 15:51:17 Reading Location: [facility] Mammo Reading Room MR, ABDOMEN, [id number] 14:51:00REFERRJB GOMEZ: ANIL VEGAINAL REPORT TECHNIQUE: MRI of the [...] MDReport Verified Date/Time: 12/19/2018 14:51:24 Reading Location: [address] Radiology Reading Room ETHANOL 2018-12-06 11:12:00 Test Item Value Reference Range Interpretation Comments ETHANOL (BEAKER) (test code = 400) < mg/dL <=10 BASIC METABOLIC [id number] 10:56:00 Test Item Value Reference Range Interpretation [...] DIALYSIS PATIEN TS. Specimen moderately ictericHEPATIC FUNCTION [id number] 10:56:00 Test Item Value Reference Range Interpretation [...] 27 U/L 6-55 347) Specimen moderately ictericPROTHROMBIN [id number] 10:40:00 Test Item Value Reference Range Interpretation [...] mechanical heart valves.CBC W/PLT COUNT & AUTO [id number] 10:38:00 Test Item Value Reference Range Interpretation [...] PERCENT (BEAKER) (test code = 2801) BLOOD [id number] 08:00:00 Test Item Value Reference Range Interpretation Comments CULTURE (BEAKER) (test No growth in 5 days code = 1095) BLOOD [id number] 08:00:00 Test Item Value Reference Range Interpretation Comments CULTURE (BEAKER) (test No growth in 5 days code = 1095) BODY FLUID CULTURE + GRAM [id number] 12:20:00 Test Item Value Reference Range Interpretation Comments CULTURE (BEAKER) (test code No growth = 1095) GRAM STAIN RESULT (BEAKER) 1+ WBCs (test code = 1123) GRAM STAIN RESULT (BEAKER) No organisms seen (test code = 34423) HEPATITIS C PCR, [id number] 08:32:00 Test Item Value Reference Range Interpretation Comments HCV RESULT COMPONENT HCV RNA not detected HCV RNA not detected (BEAKER) (test code = 2699) This test uses a Real-Time Polymerase Chain Reaction (RT-PCR) methodology and was performed using [employer] Ampliprep/KHOA TaqMan HCV test kit version 2.0 ([employer]).Reportable range for this assay is 15 - 100,000,000 IU per mL (1.18 - 8.00 Log IU/mL).POCT-GLUCOSE [id number] 08:09:00 Test Item Value Reference Range Interpretation Comments POC-GLUCOSE METER 117 mg/dL 70-110 H TESTED AT [facility] [address] (BEAKER) (test code = [place] 1538) [address] CALCIUM, [id number] 05:54:00 Test Item Value Reference Range Interpretation Comments CALCIUM IONIZED (BEAKER) (test 1.01 mmol/L 1.12-1.27 L code = 698) PH, BLOOD (BEAKER) (test code = 7.45 1140) COMPREHENSIVE METABOLIC [id number] 05:07:00 Test Item Value Reference Range Interpretation [...] APPLICABLE FOR DIALYSIS PATIEN TS. Specimen slightly [id number] 05:06:00 Test Item Value Reference Range Interpretation Comments PHOSPHORUS (BEAKER) (test code = 3.3 mg/dL 2.3-4.7 604) [id number] 05:06:00 Test Item Value Reference Range Interpretation Comments MAGNESIUM (BEAKER) (test code = 1.5 mg/dL 1.6-2.6 L 627) CBC W/PLT COUNT & AUTO [id number] 04:43:00 Test Item Value Reference Range Interpretation [...] PERCENT (BEAKER) (test code = 2801) POCT-GLUCOSE [id number] 21:35:00 Test Item Value Reference Range Interpretation Comments POC-GLUCOSE METER 154 mg/dL 70-110 H [facility] [place] [address] [facility] 1538) [address] POCT-GLUCOSE [id number] 17:21:00 Test Item Value Reference Range Interpretation Comments POC-GLUCOSE METER 138 mg/dL 70-110 H TESTED AT [place] [address] [facility] (test code = [facility] 1538) [address] POCT-GLUCOSE [id number] 13:27:00 Test Item Value Reference Range Interpretation Comments POC-GLUCOSE METER 166 mg/dL 70-110 H TESTED AT [place] [address] [facility] (test code = [facility] Juan J [facility] 1538) [address] CBC W/PLT COUNT & AUTO [id number] 12:00:00 Test Item Value Reference Range Interpretation [...] 3438) Received comment: User comments: Slide comments:POCT-GLUCOSE [id number] 11:52:00 Test Item Value Reference Range Interpretation Comments POC-GLUCOSE METER 180 mg/dL 70-110 H TESTED AT [facility] [address] (BEAKER) (test code = NICOLE Arita [place] 1538) [address] POCT-GLUCOSE [id number] 08:09:00 Test Item Value Reference Range Interpretation Comments POC-GLUCOSE METER 115 mg/dL 70-110 H TESTED AT [facility] [address] (BEAKER) (test code = NICOLE Arit[place] 1538) [address] COMPREHENSIVE METABOLIC [id number] 05:59:00 Test Item Value Reference Range Interpretation [...] U/L 6-55 (test code = 347) EGFR ([facility]) (test 119 ESTIMATE D GFR IS code = 1092) mL/min/1.73 sq NOT ACCURA TE m CREATININE CLEARANCE IN PREDICTING GLOMERULAR FILTRATION RATE . ESTIMATED GFR I S NOT APPLICABLE FOR DIALYSIS PATIEN TS. Specimen slightly [id number] 05:57:00 Test Item Value Reference Range Interpretation Comments MAGNESIUM ([facility]) (test code = 1.6 mg/dL 1.6-2.6 627) POCT-GLUCOSE [id number] 22:30:00 Test Item Value Reference Range Interpretation Comments POC-GLUCOSE METER 186 mg/dL 70-110 H TESTED AT [place] [address] ([facility]) (test code = NICOLE Arita [facility] 1538) [address] POCT-GLUCOSE [id number] 18:33:00 Test Item Value Reference Range Interpretation Comments POC-GLUCOSE METER 117 mg/dL 70-110 H TESTED AT [place] [address] ([facility]) (test code = NICOLE Arita [facility] 1538) [address] U/S, [id number] 17:34:00REFERRING MD: ANIL SALVADOR Please give 25g [...] 2% lidocaine anesthesia was administered. A 5 Ghanaian catheter was advanced into the peritoneal cavityand 1300 cc of addison fluid was removed. The catheter was removed without immediate complication. Samples left with interstitial sent to the lab for analysis. IMPRESSION:Uncomplicated ultrasound-guided paracentesis with 1300 cc fluid removed. Signed: Mauricio Culleneport Verified Date/Time: 10/29/2018 17:34:00 Reading Location: [address] Ultrasound Reading Room VANCOMYCIN LEVEL, [id number] 17:22:00 Test Item Value Reference Range Interpretation Comments VANCOMYCIN TROUGH (BEAKER) (test 7.3 ug/mL 10.0-20.0 L code = 522) CBC W/PLT COUNT & AUTO [id number] 15:00:00 Test Item Value Reference Range Interpretation [...] = 2801) BODY FLUID CELL COUNT WITH [id number] 13:45:00 Test Item Value Reference Range Interpretation [...] Tube (test code = 2873) RESPIRATORY PANEL [id number] 12:27:00 Test Item Value Reference Range Interpretation [...] sample was tested at the [facility] using the [employer] Respiratory Panel. It is FDA cleared and has been verified and approved by the [facility] for clinical use on nasopharyngeal swab specimens.The performance of the FilmArrayRP has not been established in individuals who received influenza vaccine. Recent administration of a nasal influenza vaccine may cause false positive results for Influenza A and/orInfluenza B.POCT-GLUCOSE [id number] 12:16:00 Test Item Value Reference Range Interpretation Comments POC-GLUCOSE METER 196 mg/dL 70-110 H TESTED AT [facility] [address] ([place]) (test code = [place]ICOLE [place] 1538) [address] RESPIRATORY PANEL [id number] 10:59:00 Test Item Value Reference Range Interpretation [...] sample was tested at the [facility] using the [employer] Respiratory Panel. It is FDA cleared and has been verified and approved by the [facility] for clinical use on nasopharyngeal swab specimens.The performance of the FilmArrayRP has not been established in individuals who received influenza vaccine. Recent administration of a nasal influenza vaccine may cause false positive results for Influenza A and/orInfluenza B.POCT-GLUCOSE [id number] 08:15:00 Test Item Value Reference Range Interpretation Comments POC-GLUCOSE METER 184 mg/dL 70-110 H TESTED AT [facility] [address] (BEAKER) (test code = [place] 1538) [address] CBC W/PLT COUNT & AUTO [id number] 07:49:00 Test Item Value Reference Range Interpretation [...] APPLICABLE FOR DIALYSIS PATIEN TS. Specimen moderately [id number] 04:31:00 Test Item Value Reference Range Interpretation Comments MAGNESIUM (BEAKER) (test code = 1.9 mg/dL 1.6-2.6 627) LACTIC ACID, [id number] 04:18:00 Test Item Value Reference Range Interpretation Comments LACTATE BLOOD VENOUS (2) (BEAKER) 1.3 mmol/L 0.5-2.2 (test code = 2872) Specimen moderately ictericPOCT-GLUCOSE [id number] 18:00:00 Test Item Value Reference Range Interpretation Comments POC-GLUCOSE METER 121 mg/dL 70-110 H TESTED AT [facility] [address] (BEAKER) (test code = [place] 1538) [address] [id number] 12:39:00 Test Item Value Reference Range Interpretation Comments PROCALCITONIN (BEAKER) (test code 4.50 ng/mL <0.05 H = 3036) SEPSIS RISK (ng/mL)Low: 0.05-0.50Intermediate: 0.51-2.00High: >=2.01POCT- GLUCOSE [id number] 12:20:00 Test Item Value Reference Range Interpretation Comments POC-GLUCOSE METER 148 mg/dL 70-110 H TESTED AT [facility] [address] ([facility]) (test code = [place] 1538) [address] LEGIONELLA ANTIGEN, [id number] 12:13:00 Test Item Value Reference Range Interpretation Comments L. PNEUMOPHILA Negative - see Negative fo r L. SEROGP 1 UR AG comment pneumophila (BRITTANYAKER) (test code serogrou p 1 antigen, = 1156) suggesting no r ecent or current infe ction with this serog roup. Legionellosis c annot be ruled out si nce other serogroup s and species may cau se disease. STREP PNEUMONIAE [id number] 12:13:00 Test Item Value Reference Range Interpretation Comments STREP PNEUMONIAE Presumptive negative Presumptive negative ANTIGEN ([employer]) for pneumococcal for pneumococcal (test code = 1615) pneumonia - see pneumonia - see comment commen Presumptive negative for pneumococcal pneumonia, suggesting no current or recent pneumococcal infection. Infection due to S. pneumoniae cannot be ruled out since the antigen present in the sample may be below the detection limit of the test. RAPID INFLUENZA A&B [id number] 12:11:00 Test Item Value Reference Range Interpretation Comments RAPID INFLUENZA A AG ([employer] PartnerAKER) Negative Negative, Inconclusive (test code = 1622) RAPID INFLUENZA B AG (BEAKER) Negative Negative, Inconclusive (test code = 1623) LACTIC ACID, [id number] 10:51:00 Test Item Value Reference Range Interpretation Comments LACTATE BLOOD VENOUS (2) ([employer] PartnerAKER) 3.0 mmol/L 0.5-2.2 H (test code = 2872) Specimen moderately ictericU/S, ABDOMINAL, [id number] 07:19:00REFERRING : ANIL SALVADOR Please perform with [...] MDReport Verified Date/Time: 10/28/2018 07:19:25 Reading Location: [address] Transitional Reading Room RAPID DRUG SCREEN, [id number] 07:07:00 Test Item Value Reference Range Interpretation [...] situations. Chain of custody not maintained. Some jqhs-glk-timvfud medications, as well as adulterants, may cause inaccurate results. Clinical correlation should be applied. A more comprehensive drug screen or confirmation of a detected drug may be performed upon request.CT, BRAIN, WITHOUT [id number] 06:42:00REFERRING MD: ANIL LEROYTFINAL REPORT CT, BRAIN, [...] Verified Date/Time: 10/28/2018 06:42:47 VITAMIN B12 AND [id number] 06:21:00 Test Item Value Reference Range Interpretation Comments VITAMIN B12 (BEAKER) (test code = 719 pg/mL 213-816 774) FOLATE (BEAKER) (test code = 362) 13.7 ng/mL >=7.0 TROPONIN [id number] 06:05:00 Test Item Value Reference Range Interpretation [...] H (test code = 2590) COMPREHENSIVE METABOLIC [id number] 05:44:00 Test Item Value Reference Range Interpretation [...] APPLICABLE FOR DIALYSIS PATIEN TS. Specimen moderately [id number] 05:38:00 Test Item Value Reference Range Interpretation Comments MAGNESIUM (BEAKER) (test code = 2.3 mg/dL 1.6-2.6 627) LACTIC ACID, [id number] 05:32:00 Test Item Value Reference Range Interpretation Comments LACTATE BLOOD VENOUS 4.1 mmol/L 0.5-2.2 H Specime n slightly (2) (BEAKER) (test hemolyzed code = 2872) Specimen moderately ictericTROPONIN [id number] 02:28:00 Test Item Value Reference Range Interpretation [...] disease, and persistent tachyarrhythmia.RAD, ABDOMEN/KUB, 1 VIEW [id number] 02:04:00REFERRING MD: ANIL SALVADOR Reason for exam:->NG [...] Navarrete MDReport Verified Date/Time: 10/28/2018 02:04:20 HROMBIN [id number] 01:58:00 Test Item Value Reference Range Interpretation [...] mechanical heart valves.CBC W/PLT COUNT & AUTO [id number] 01:45:00 Test Item Value Reference Range Interpretation [...] User comments: Slide comments:URINALYSIS W/ REFLEX URINE [id number] 01:36:00 Test Item Value Reference Range Interpretation [...] SOURCE(BEAKER) (test code = 2795) COMPREHENSIVE METABOLIC [id number] 01:16:00 Test Item Value Reference Range Interpretation [...] APPLICABLE FOR DIALYSIS PATIEN TS. Specimen moderately [id number] 01:15:00 Test Item Value Reference Range Interpretation Comments AMMONIA (BEAKER) (test code = 348) 69 mol/L 18-72 LACTIC ACID, [id number] 01:08:00 Test Item Value Reference Range Interpretation Comments LACTATE BLOOD VENOUS (2) (BEAKER) 3.2 mmol/L 0.5-2.2 H (test code = 2872) Specimen moderately [id number] 01:08:00 Test Item Value Reference Range Interpretation Comments MAGNESIUM (BEAKER) (test code = 1.1 mg/dL 1.6-2.6 L 627) RAD, CHEST, 1 VIEW, NON [id number] 00:52:00REFERRING MD: ANIL SALVADOR Reason for exam:->sepsisShould [...] MDReport Verified Date/Time: 10/28/2018 00:52:42 Reading Location: [address] Reading Room ACTIN (SMOOTH MUSCLE) ANTIBODY, [id number] 08:28:00 Test Item Value Reference Range Interpretation Comments SCAN RESULT (test code = 8693128) [id number] 08:27:00 Test Item Value Reference Range Interpretation Comments SCAN RESULT (test code = 3352732) NILS TITER AND [id number] 09:55:00 Test Item Value Reference Range Interpretation Comments NILS TITER (BEAKER) (test code = :160 1541) NILS PATTERN (BEAKER) (test code = Speckled 1781) ANTI-NUCLEAR ANTIBODY (NILS)2018-10-05 09:54:00 Test Item Value Reference Range Interpretation Comments ANTI-NUCLEAR ANTIBODY (NILS) (BEAKER) Positive Negative A (test code = 418) Test performed by IFA method.[id number] 10:54:00 Test Item Value Reference Range Interpretation Comments FERRITIN (BEAKER) (test code = 361) 218 ng/mL 5-275 HEPATITIS A ANTIBODY, [id number] 10:18:00 Test Item Value Reference Range Interpretation Comments HEPATITIS A IGG ANTIBODY (BEAKER) Reactive Nonreactive A (test code = 2797) ALPHA FETOPROTEIN (AFP), TUMOR [id number] 10:14:00 Test Item Value Reference Range Interpretation Comments ALPHA-FETOPROTEIN (BEAKER) (test 3.5 ng/mL <10.0 code = 1094) HEPATITIS A ANTIBODY, [id number] 10:14:00 Test Item Value Reference Range Interpretation Comments HEPATITIS A IGM ANTIBODY (BEAKER) Nonreactive Nonreactive (test code = 498) HEPATITIS B CORE ANTIBODY, [id number] 10:14:00 Test Item Value Reference Range Interpretation Comments HEPATITIS B CORE TOTAL ANTIBODY Nonreactive Nonreactive (BEAKER) (test code = 497) HEPATITIS B SURFACE [id number] 09:42:00 Test Item Value Reference Range Interpretation Comments HEPATITIS B SURFACE ANTIBODY < mIU/mL <8.0 (BEAKER) (test code = 647) HEPATITIS B SURFACE [id number] 09:36:00 Test Item Value Reference Range Interpretation [...] 41 % 20-55 (test code = 2590) [id number]-7-[id number] 09:14:00 Test Item Value Reference Range Interpretation Comments ALPHA-1 ANTITRYPSIN (BEAKER) 159.30 mg/dL 90.00-200.00 (test code = 502) COMPREHENSIVE METABOLIC [id number] 09:10:00 Test Item Value Reference Range Interpretation [...] FOR DIALYSIS PATIEN TS. Specimen slightly ictericBILIRUBIN, [id number] 09:10:00 Test Item Value Reference Range Interpretation Comments BILIRUBIN DIRECT (BEAKER) (test 1.4 mg/dL 0.1-0.5 H code = 706) PROTHROMBIN [id number] 08:38:00 Test Item Value Reference Range Interpretation [...] mechanical heart valves.CBC W/PLT COUNT & AUTO [id number] 08:35:00 Test Item Value Reference Range Interpretation [...] % 0-1 PERCENT (BEAKER) (test code = 7163)"
[2022-08-13 13:56] LABS: Absolute Lymphocytes (CBC) 1.8 K/uL (0.7-4.9); Hematocrit 34.4 % (39.6-49.0); Lymphocytes % 19.7 % (15.3-44.8); MCV 75.8 fL (80-100); MPV 9.2 fL (7.6-11.3); RBC Red Blood Cell Count 4.54 M/uL (4.33-5.43)
[2022-08-13 14:06] LABS: Protime INR 1.33
--- NOTE | 2022-08-13 14:09 | RAD REPORT ---
EXAM DESCRIPTION: Shaina Single View08/13/2022 1:55 pm CLINICAL HISTORY: Dizziness and weakness COMPARISON: May 2022 FINDINGS: The lungs appear clear of acute infiltrate. The heart is normal size IMPRESSION: No acute abnormalities displayed
[2022-08-13 14:28] LABS: Urine Blood Trace-intact (Negative); Urine Glucose 3+ (Negative); Urine Protein Negative (Negative); Urine Specific Gravity 1.015 (1.005-1.030)
[2022-08-13 14:34] LABS: Magnesium 1.8 mg/dL (1.6-2.4); Potassium 3.5 mEq/L (3.5-5.1); Troponin High Sensitivity 216.4 pg/mL (<58.9)
--- NOTE | 2022-08-13 14:37 | RAD REPORT ---
EXAM DESCRIPTION: CT - Head Brain Wo Cont - 08/13/2022 2:20 pm CLINICAL HISTORY: Dizziness COMPARISON: 2019 TECHNIQUE: Computed axial tomography of the head was obtained. IV contrast was not requested. All CT scans are performed using dose optimization technique as appropriate and may include automated exposure control or mA/KV adjustment according to patient size. FINDINGS: An intracranial bleed is not seen The ventricles are normal in caliber No extra-axial fluid collection is noted. Quadrigeminal plate cistern lipoma unchanged. Mild cerebral atrophy Fluid within the sinuses/ mastoids is not seen. IMPRESSION: No acute intracranial abnormality is seen If patient's symptoms persist MRI of the brain would be recommended
[2022-08-13 14:43] LABS: Urine Bacteria None Seen /HPF (<20); Urine RBC <5 /HPF (None Seen)
[2022-08-13] MEDS ORDERED: ASPIRIN 81 MG CHEWABLE TABLET ONE (15:06)
[2022-08-13] MEDS ORDERED: INSULIN -REGULAR HUMAN 50 UNIT/0.5 ML ML ONE ×3 (15:06→22:30)
--- NOTE | 2022-08-13 15:22 | EDPHYS ---
Physician Documentation [facility] Name: Tonny Cardona Age: 66 yrs Sex: Male : 1955 Arrival Date: 08/13/2022 Time: 13:16 Bed 15 Private MD: ED Physician Andrey Moreland HPI: 08/13 13:25 This 66 yrs old Male presents to ER via EMS with complaints of General cp Weakness, Dizziness. 13:25 The patient presents with feeling off balance. Onset: The symptoms/episode cp began/occurred this morning. 13:25 Context: occurred at home, just prior to the episode the patient experienced no cp apparent symptoms. 13:25 Associated signs and symptoms: Pertinent negatives: abdominal pain, chest pain, cp confusion, diaphoresis, focal weakness, palpitations, shortness of breath, syncope, vomiting. Severity of symptoms: in the emergency department the symptoms are unchanged despite home interventions. Patient's baseline: Neuro: alert and fully oriented, Motor: no deficits, Ambulation: walks without assistance, Speech: slow. Historical: - Allergies: 13:22 Ativan; eh3 - Home Meds: 13:22 Metformin Oral [Active]; eh3 13:22 Insulin Glargine Sub-Q [Active]; Amoxicillin Oral [Active]; Lactulose Oral [Active]; eh3 - PMHx: 13:22 ADD/ADHD; Cirrhosis; Diabetes - NIDDM; Hypertension; psoriasis; eh3 - PSHx: 13:22 hernia repair; eh3 - Immunization history:: Adult Immunizations up to date. - Social history:: Smoking status: Patient/guardian denies using tobacco, the patient reports quitting approximately 3 years ago, Patient/guardian denies using alcohol, the patient reports quitting approximately 3 years ago. ROS: 13:30 Constitutional: Negative for body aches, chills, fever, poor PO intake. cp 13:30 Cardiovascular: Negative for chest pain, palpitations. cp 13:30 Respiratory: Negative for cough, shortness of breath, wheezing. 13:30 Eyes: Negative for injury, pain, redness, and discharge. cp 13:30 ENT: Negative for drainage from ear(s), ear pain, sore throat, difficulty swallowing, cp difficulty handling secretions. 13:30 Abdomen/GI: Negative for abdominal pain, vomiting, diarrhea, constipation, black/tarry stool, rectal bleeding. 13:30 : Negative for urinary symptoms. 13:30 Neuro: Positive for dizziness, weakness, Negative for altered mental status, headache, numbness, speech changes, syncope. 13:30 All other systems are negative. Exam: 13:33 Constitutional: The patient appears in no acute distress, alert, awake, cp non-diaphoretic, non-toxic, well developed, well nourished. 13:33 Head/Face: Normocephalic, atraumatic. cp 13:33 Eyes: Periorbital structures: appear normal, Conjunctiva: normal, no exudate, no cp injection, Sclera: no appreciated abnormality, Lids and lashes: appear normal, bilaterally. 13:33 ENT: External ear(s): are unremarkable, Nose: is normal, Mouth: Lips: dry, Oral mucosa: pink and intact, moist, Posterior pharynx: is normal, airway is patent, no erythema, no exudate. 13:33 Neck: ROM/movement: is normal, is supple, without pain, no range of motions limitations. 13:33 Chest/axilla: Inspection: normal, Palpation: is normal, no crepitus, no tenderness. cp 13:33 Cardiovascular: Rate: normal, Rhythm: regular, Edema: is not appreciated, JVD: is not cp appreciated. 13:33 Respiratory: the patient does not display signs of respiratory distress, Respirations: normal, no use of accessory muscles, no retractions, labored breathing, is not present, Breath sounds: are clear throughout, no decreased breath sounds, no stridor, no wheezing. 13:33 Abdomen/GI: Inspection: abdomen appears normal, Palpation: abdomen is soft and non-tender, in all quadrants. 13:33 Back: pain, is absent, ROM is normal. 13:33 Neuro: Orientation: to person, place \T\ time. Mentation: able to follow commands, slow to respond, Cerebellar function: Romberg testing is negative, Motor: moves all fours, general weakness with no focal deficits, Sensation: no obvious gross deficits. 13:55 ECG was reviewed by the Attending Physician. cp Vital Signs: 13:20 BP 131 / 77; Pulse 84; Resp 16; Temp 99.3; Pulse Ox 100% on R/A; Weight 107.95 kg; eh3 Height 5 ft. 6 in. ; Pain 0/10; 14:15 BP 135 / 69; Pulse 84; Resp 18; Pulse Ox 99% on R/A; eh3 14:32 BP 116 / 57 Supine; Pulse 80; Resp 19; Pulse Ox 100% on R/A; eh3 14:34 BP 121 / 64 Sitting; Pulse 83; Resp 19; Pulse Ox 100% on R/A; eh3 14:36 BP 124 / 72 Standing; Pulse 101; Resp 25; Pulse Ox 96% on R/A; eh3 15:15 BP 117 / 65; Pulse 74; Resp 18; Pulse Ox 100% on R/A; eh3 16:15 BP 133 / 74; Pulse 75; Resp 20; Pulse Ox 100% on R/A; eh3 13:20 Body Mass Index 38.41 (107.95 kg, 167.64 cm) [facility] [place] 13:20 Pain Scale: Adult 3 NIH Stroke Scale Scores: 13:33 NIHSS Score: 0 cp MDM: 13:24 Patient medically screened. cp 14:00 Differential diagnosis: cardiac arrhythmia, CVA, generalized weakness, GI bleed, cp hypovolemia, idiopathic dizziness, sepsis, syncope, TIA, acute OR. 15:20 Data reviewed: vital signs, nurses notes, lab test result(s), EKG, radiologic studies, cp CT scan, plain films, and as a result, I will admit patient. 15:20 Management of patient was discussed with the following: Primary Care Provider: DR Cricket rodgers who requests ammonia level check and consult cardiology, DR Wright. Will admit after discussion of labs, exam, EKG and radiology studies. Independent interpretation of the following test(s) in the Emergency Department EKG: See my EKG interpretation above X-Ray: My interpretation is chest image negative for focal pneumonia. Care significantly affected by the following chronic conditions: Diabetes, Hypertension, Liver Disease. Counseling: I had a detailed discussion with the patient and/or guardian regarding: the historical points, exam findings, and any diagnostic results supporting the discharge/admit diagnosis, lab results, radiology results, the need for further work-up and treatment in the hospital. 08/13 13:24 Order name: Basic Metabolic Panel; Complete Time: 14:46 cp 08/13 14:46 Interpretation: Normal except: NA 133; GLUC 413; CA 8.0. cp 08/13 13:24 Order name: CBC with Diff; Complete Time: 14:31 cp 08/13 14:31 Interpretation: Normal except: HGB 10.8; HCT 34.4; MCV 75.8; MCH 23.8; MCHC 31.4; PLT cp 65; RDW 17.7. 08/13 13:24 Order name: Magnesium; Complete Time: 14:46 cp 08/13 13:24 Order name: NT PRO-BNP; Complete Time: 14:46 cp 08/13 13:24 Order name: PT-INR; Complete Time: 14:31 cp 08/13 13:24 Order name: Troponin HS; Complete Time: 14:46 cp 08/13 14:46 Interpretation: Abnormal: Troponin HS 216.4. cp 08/13 13:24 Order name: Urine Microscopic Only; Complete Time: 14:46 cp 08/13 14:28 Order name: Urine Dipstick-Ancillary; Complete Time: 14:31 EDMS 08/13 14:55 Interpretation: Normal except: UGLUC 3+; UBLD Trace-intact. cp 08/13 15:17 Order name: COVID-19/FLU A+B cp 08/13 15:20 Order name: Lactate w/ 2H reflex if indic.; Complete Time: 16:39 cp 08/13 15:20 Order name: Blood Culture Adult (2) cp 08/13 15:20 Order name: AMMONIA; Complete Time: 16:39 cp 08/13 15:20 Order name: LFT's; Complete Time: 16:39 cp 08/13 15:47 Order name: Basic Metabolic Panel EDMS 08/13 15:47 Order name: Basic Metabolic Panel EDMS 08/13 15:47 Order name: CBC with Automated Diff EDMS 08/13 15:47 Order name: CBC with Automated Diff EDMS 08/13 15:47 Order name: Troponin High Sensitivity EDMS 08/13 15:47 Order name: Troponin High Sensitivity EDMS 08/13 15:47 Order name: Troponin High Sensitivity EDMS 08/13 15:47 Order name: Troponin High Sensitivity EDMS 08/13 18:29 Order name: Glucose, Ancillary Testing EDMS 08/13 21:29 Order name: Lactate Sepsis 2 HR Follow-up EDMS 08/13 22:21 Order name: Glucose, Ancillary Testing EDMS 08/14 03:06 Order name: Comprehensive Metabolic Panel EDMS 08/14 07:33 Order name: Glucose, Ancillary Testing EDMS 08/13 13:24 Order name: CT Head Brain wo Cont; Complete Time: 14:46 cp 08/13 13:24 Order name: XRAY Chest (1 view); Complete Time: 14:31 cp 08/13 13:24 Order name: EKG; Complete Time: 13:25 cp 08/13 15:47 Order name: EKG Electrocardiogram EDMS 08/13 15:47 Order name: EKG Electrocardiogram EDMS 08/13 15:47 Order name: EKG Electrocardiogram EDMS 08/13 15:47 Order name: EKG Electrocardiogram EDMS 08/13 16:19 Order name: Diet Full Liquid; Complete Time: 16:19 eh3 08/13 13:24 Order name: Orthostatics; Complete Time: 14:41 cp 08/13 13:24 Order name: Cardiac monitoring; Complete Time: 14:11 cp 08/13 13:24 Order name: EKG - Nurse/Tech; Complete Time: 14:10 cp 08/13 13:24 Order name: IV Saline Lock; Complete Time: 14:11 cp 08/13 13:24 Order name: Labs collected and sent; Complete Time: 14:11 cp 08/13 13:24 Order name: O2 Per Protocol; Complete Time: 13:36 cp 08/13 13:24 Order name: O2 Sat Monitoring; Complete Time: 13:36 cp 08/13 13:24 Order name: Urine Dipstick-Ancillary (obtain specimen); Complete Time: 14:30 cp EC:55 Rate is 90 beats/min. Rhythm is regular. MT interval is normal. QRS interval is normal. cp QT interval is normal. T waves are Inverted in lead aVR. Interpreted by me. Reviewed by me. Administered Medications: 16:43 Discontinued: NS 0.9% IV 500 ml IV at 100 ml/hr continuous cp 15:00 Drug: Insulin Regular Human IVP 10 units {Co-Signature: kc6 (Yee Buchanan RN).} 3 Route: IVP; Site: right upper arm; 15:00 Drug: Aspirin PO Chewable Tablet 324 mg Route: PO; 3 17:44 Follow up: Response: No adverse reaction [facility] [place] 15:20 CANCELLED (Physician Discretion): NS 0.9% IV 500 ml IV at 250 ml/hr continuous cp 16:00 Drug: Enoxaparin Sub-Q 1 mg/kg Route: Sub-Q; Site: left lower abdomen; eh3 17:44 Follow up: Response: No adverse reaction eh3 16:00 Drug: NS 0.9% IV 500 ml Route: IV; Rate: bolus; Site: right forearm; eh3 17:30 Follow up: IV Status: Completed infusion; IV Intake: 500ml eh3 16:00 Drug: NS 0.9% IV 500 ml Route: IV; Rate: 100 ml/hr; Site: right forearm; eh3 17:30 Drug: NS 0.9% IV 500 ml Route: IV; Rate: bolus; Site: left wrist; eh3 19:00 Follow up: IV Status: Completed infusion; IV Intake: 500ml 3 17:30 Drug: NS 0.9% IV 1000 ml Route: IV; Rate: 100 ml/hr; Site: left wrist; eh3 Disposition Summary: 08/13/22 15:21 Hospitalization Ordered Hospitalization Status: Inpatient Admission cp Provider: Bebeto Harley cp Condition: Stable cp Problem: new cp Symptoms: have improved cp Bed/Room Type: Standard cp Location: Telemetry/MedSurg (Inpatient)(08/14/22 07:29) kj1 Room Assignment: [facility](08/14/22 07:29) kj1 Diagnosis - Subsequent non-ST elevation (NSTEMI) myocardial infarction cp - Diabetes mellitus due to underlying condition with hyperglycemia cp Forms: - Medication Reconciliation Form cp - SBAR form cp NIH Stroke Scale - NIH Stroke Score Date: 08/13/2022 Time: 13:33 Total Score = 0 10. Dysarthria (speech clarity - read or repeat words) - 0(Normal) 11. Extinction and Inattention (visual/tactile/auditory/spatial/personal) - 0(No abnormality) 1a. Level of Consciousness (LOC) - 0(Alert) 1b. Level of Consciousness (LOC) (Month \T\ Age) - 0(Both) 1c. LOC Commands (Open \T\ Closes Eyes/Value Analyst) - 0(Both) 2. Best Gaze (Lateral Gaze Paresis) - 0(Normal) 3. Visual Field Loss - 0(No visual loss) 4. Facial Palsy - 0(Normal) 5a. Left Arm: Motor (10-second hold) - 0(No drift) 5b. Right Arm: Motor (10-second hold) - 0(No drift) 6a. Left Leg: Motor (5-second hold - always test supine) - 0(No drift) 6b. Right Leg: Motor (5-second hold - always test supine) - 0(No drift) 7. Limb Ataxia (finger/nose \T\ heel/stewart - test with eyes open) - 0(Absent) 8. Sensory Loss (pinprick arms/legs/face) - 0(Normal) 9. Best Language: Aphasia (description/naming/reading) - 0(No aphasia) Initials: cp Signatures: Dispatcher [employer] EDMS Milan Mcbride PA PA cp Leal, Jahala RN RN jl7 Cleo Reyna1 Ghada Pizarro RN RN eh3 Yee Buchanan RN kc6 Corrections: (The following items were deleted from the chart) 13:36 13:22 Home Meds: Insulin: Regular Sub-Q; [place] [id number] 15:20 14:58 NS 0.9% IV 500 ml IV at 250 ml/hr continuous ordered. cp cp 18:11 15:21 Telemetry/MedSurg (Inpatient) cp jl7 18:11 15:21 cp jl7 08/14 07:29 08/13 18:11 [facility] ER HOLD jl7 kj1 08/14 07:29 08/13 18:11 ERHOLD- jl7 kj1
--- NOTE | 2022-08-13 15:22 | ER ---
Nurse's Notes [facility] Name: Tonny Cardona Age: 66 yrs Sex: Male : 1955 Arrival Date: 08/13/2022 Time: 13:16 Bed 15 Private MD: Diagnosis: Subsequent non-ST elevation (NSTEMI) myocardial infarction;Diabetes mellitus due to underlying condition with hyperglycemia Presentation: 08/13 13:20 Chief complaint: EMS states: generalized weakness, dizziness, and fatigue this morning; eh3 had all his teeth pulled yesterday at the dentist. EMS report BGL of 391. Coronavirus screen: Vaccine status: Patient reports receiving the 2nd dose of the covid vaccine. Ebola Screen: No symptoms or risks identified at this time. Initial Sepsis Screen: Does the patient meet any 2 criteria? No. Patient's initial sepsis screen is negative. Does the patient have a suspected source of infection? No. Patient's initial sepsis screen is negative. Risk Assessment: Do you want to hurt yourself or someone else? Patient reports no desire to harm self or others. Onset of symptoms was August 13, 2022. 13:20 Method Of Arrival: EMS: [facility] 13:20 Acuity: FAIZA 3 3 Triage Assessment: 13:22 General: Appears in no apparent distress. uncomfortable, Behavior is calm, cooperative, eh3 appropriate for age. Pain: Denies pain. Neuro: Level of Consciousness is awake, alert, obeys commands, Oriented to person, place, time, situation. Neuro: Reports dizziness, weakness. Cardiovascular: Capillary refill < 3 seconds Patient's skin is warm and dry. Respiratory: Airway is patent Respiratory effort is even, unlabored, Respiratory pattern is regular, symmetrical. GI: Abdomen is round non-distended. : No signs and/or symptoms were reported regarding the genitourinary system. Derm: Rash noted that is itchy, papular, red, raised, vesicular. Musculoskeletal:. Musculoskeletal: No signs and/or symptoms reported regarding the musculoskeletal system. Historical: - Allergies: 13:22 Ativan; 3 - Home Meds: 13:22 Metformin Oral [Active]; eh3 13:22 Insulin Glargine Sub-Q [Active]; Amoxicillin Oral [Active]; Lactulose Oral [Active]; eh3 - PMHx: 13:22 ADD/ADHD; Cirrhosis; Diabetes - NIDDM; Hypertension; psoriasis; eh3 - PSHx: 13:22 hernia repair; eh3 - Immunization history:: Adult Immunizations up to date. - Social history:: Smoking status: Patient/guardian denies using tobacco, the patient reports quitting approximately 3 years ago, Patient/guardian denies using alcohol, the patient reports quitting approximately 3 years ago. Screenin:26 [facility] ED Fall Risk Assessment (Adult) Score/Fall Risk Level 0 - 2 = Low Risk. Abuse eh3 screen: Denies threats or abuse. Denies injuries from another. Nutritional screening: No deficits noted. Tuberculosis screening: No symptoms or risk factors identified. Assessment: 13:25 Reassessment: No changes from previously documented assessment. See triage assessment. 3 14:15 Reassessment: Patient appears in no apparent distress at this time. Patient and/or 3 family updated on plan of care and expected duration. Pain level reassessed. Patient is alert, oriented x 3, equal unlabored respirations, skin warm/dry/pink. 15:15 Reassessment: Patient appears in no apparent distress at this time. Patient and/or 3 family updated on plan of care and expected duration. Pain level reassessed. Patient is alert, oriented x 3, equal unlabored respirations, skin warm/dry/pink. 16:15 Reassessment: Patient appears in no apparent distress at this time. Patient and/or 3 family updated on plan of care and expected duration. Pain level reassessed. Patient is alert, oriented x 3, equal unlabored respirations, skin warm/dry/pink. 08/14 07:35 Reassessment: attempted to call report to 2nd floor. stated the nurse will call me back.kc6 07:55 Reassessment: attempted to call report to second floor. stated the nurse is doing med kc6 pass. Vital Signs: 08/13 13:20 BP 131 / 77; Pulse 84; Resp 16; Temp 99.3; Pulse Ox 100% on R/A; Weight 107.95 kg; eh3 Height 5 ft. 6 in. ; Pain 0/10; 14:15 BP 135 / 69; Pulse 84; Resp 18; Pulse Ox 99% on R/A; eh3 14:32 BP 116 / 57 Supine; Pulse 80; Resp 19; Pulse Ox 100% on R/A; eh3 14:34 BP 121 / 64 Sitting; Pulse 83; Resp 19; Pulse Ox 100% on R/A; eh3 14:36 BP 124 / 72 Standing; Pulse 101; Resp 25; Pulse Ox 96% on R/A; eh3 15:15 BP 117 / 65; Pulse 74; Resp 18; Pulse Ox 100% on R/A; eh3 16:15 BP 133 / 74; Pulse 75; Resp 20; Pulse Ox 100% on R/A; eh3 13:20 Body Mass Index 38.41 (107.95 kg, 167.64 cm) eh3 13:20 Pain Scale: Adult eh3 NIH Stroke Scale Scores: 13:33 NIHSS Score: 0 cp ED Course: 13:16 Patient arrived in ED. 1 13:20 Ghada Pizarro, RN is Primary Nurse. eh3 13:22 Triage completed. eh3 13:22 Arm band placed on. eh3 13:23 Milan Mcbride PA is PHCP. cp 13:23 Andrey Moreland MD is Attending Physician. cp 13:26 Patient has correct armband on for positive identification. Bed in low position. Call 3 light in reach. Side rails up X2. Pulse ox on. NIBP on. Door closed. Noise minimized. 13:46 Missed attempt(s): 22 gauge in right antecubital area. Bleeding controlled, band aid eh3 applied, catheter tip intact. 13:57 XRAY Chest (1 view) In Process Unspecified. EDMS 14:10 Inserted saline lock: 22 gauge in right forearm, using aseptic technique. ll1 14:11 Basic Metabolic Panel Sent. ll1 14:11 Magnesium Sent. ll1 14:11 NT PRO-BNP Sent. ll1 14:11 Troponin HS Sent. ll1 14:21 CT Head Brain wo Cont In Process Unspecified. EDMS 15:21 Bebeto Harley MD is Hospitalizing Provider. cp 16:30 No provider procedures requiring assistance completed. Patient admitted, IV remains in [address] 16:39 Notified Nurse Practitioner and/or Physician Fur Remodeler of a critical lab result(s), ll1 lactate 2.7. 21:29 Notified ED physician of Notified the Hospitalist of a critical lab result(s), Lactate eh3 2.7. 08/14 00:23 Primary Nurse role handed off by Ghada Pizarro RN ha1 00:23 Mabel Vegas, DIANE is Primary Nurse. ha1 Administered Medications: 08/13 16:43 Discontinued: NS 0.9% IV 500 ml IV at 100 ml/hr continuous cp 15:00 Drug: Insulin Regular Human IVP 10 units {Co-Signature: tabatha (Yee Buchanan RN).} 3 Route: IVP; Site: right upper arm; 15:00 Drug: Aspirin PO Chewable Tablet 324 mg Route: PO; eh3 17:44 Follow up: Response: No adverse reaction 3 15:20 CANCELLED (Physician Discretion): NS 0.9% IV 500 ml IV at 250 ml/hr continuous cp 16:00 Drug: Enoxaparin Sub-Q 1 mg/kg Route: Sub-Q; Site: left lower abdomen; eh3 17:44 Follow up: Response: No adverse reaction 3 16:00 Drug: NS 0.9% IV 500 ml Route: IV; Rate: bolus; Site: right forearm; 3 17:30 Follow up: IV Status: Completed infusion; IV Intake: 500ml eh3 16:00 Drug: NS 0.9% IV 500 ml Route: IV; Rate: 100 ml/hr; Site: right forearm; eh3 17:30 Drug: NS 0.9% IV 500 ml Route: IV; Rate: bolus; Site: left wrist; eh3 19:00 Follow up: IV Status: Completed infusion; IV Intake: 500ml eh3 17:30 Drug: NS 0.9% IV 1000 ml Route: IV; Rate: 100 ml/hr; Site: left wrist; 3 Medication: 16:30 VIS not applicable for this client. 3 Intake: 17:30 IV: 500ml; Total: 500ml. eh3 19:00 IV: 500ml; Total: 1000ml. 3 Outcome: 15:21 Decision to Hospitalize by Provider. cp 16:30 Admitted to ER Hold. Please see [facility] for further documentation. 3 16:30 Condition: stable 16:30 Instructed on the need for admit. 08/14 08:16 Patient left the ED. kc6 NIH Stroke Scale - NIH Stroke Score Date: 08/13/2022 Time: 13:33 Total Score = 0 10. Dysarthria (speech clarity - read or repeat words) - 0(Normal) 11. Extinction and Inattention (visual/tactile/auditory/spatial/personal) - 0(No abnormality) 1a. Level of Consciousness (LOC) - 0(Alert) 1b. Level of Consciousness (LOC) (Month \T\ Age) - 0(Both) 1c. LOC Commands (Open \T\ Closes Eyes/Janitor Custodian) - 0(Both) 2. Best Gaze (Lateral Gaze Paresis) - 0(Normal) 3. Visual Field Loss - 0(No visual loss) 4. Facial Palsy - 0(Normal) 5a. Left Arm: Motor (10-second hold) - 0(No drift) 5b. Right Arm: Motor (10-second hold) - 0(No drift) 6a. Left Leg: Motor (5-second hold - always test supine) - 0(No drift) 6b. Right Leg: Motor (5-second hold - always test supine) - 0(No drift) 7. Limb Ataxia (finger/nose \T\ heel/stewart - test with eyes open) - 0(Absent) 8. Sensory Loss (pinprick arms/legs/face) - 0(Normal) 9. Best Language: Aphasia (description/naming/reading) - 0(No aphasia) Initials: cp Signatures: Dispatcher [employer] EDMS Milan Mcbride PA PA cp Jackson, Kandis kj1 Roby Hernandez RN RN ll1 Ghada Pizarro RN RN 3 Mabel Vegas RN RN ha1 Yee Buchanan RN RN kc6 Yee Buchanan RN kc6 Corrections: (The following items were deleted from the chart) 08/13 13:26 13:20 Chief complaint: EMS states: generalized weakness, dizziness, and fatigue eh3 this morning; had all his teeth pulled yesterday at the dentist 3 13:36 13:22 Home Meds: Insulin: Regular Sub-Q; 3 eh3 14:42 14:25 Reassessment: Patient appears in no apparent distress at this time. eh3 Patient and/or family updated on plan of care and expected duration. Pain level reassessed. Patient is alert, oriented x 3, equal unlabored respirations, skin warm/dry/pink. eh3 14:42 14:25 BP 135 / 69; Pulse 84bpm; Resp 18bpm; Pulse Ox 99% RA; eh3 eh3
[2022-08-13] MEDS ORDERED: ONDANSETRON 4 MG/2 ML VIAL IV PRN (15:42)
[2022-08-13] MEDS ORDERED: D50W 25 GM/50 ML SYRINGE IV PRN ×2 (15:42→16:18)
[2022-08-13] MEDS ORDERED: GLUCAGON 1 MG/VIAL IM PRN ×2 (15:42→16:18)
[2022-08-13] MEDS ORDERED: D10W 125 ML IV PRN (15:55)
--- NOTE | 2022-08-13 16:04 | P.HP ---
Certification for Inpatient Patient admitted to: Inpatient With expected LOS: >2 Midnights Patient will require the following post-hospital care: Home Health Services Practitioner: I am a practitioner with admitting privileges, knowledge of patient current condition, hospital course, and medical plan of care. Services: Services provided to patient in accordance with Admission requirements found in Title 42 Section 412.3 of the Code of Federal Regulations Patient History Date of Service: 08/13/22 Primary Care Provider: Cricket Reason for admission: NSTEMI, hyperglycemia History of Present Illness: Patient is an office patient of [facility] with a history of diabetes and cirrhosis. He had infected teeth. Which were not amenable to a liver transplant. So he was sent for extractions. Had 22 extractions on . Was to be on a liquid diet. However he has some mental deficits. Lives alone. Has been having tamales, ice cream and soda. On his home health nurse called and stated the patient was not taking his insulin and had a sugar in the 400s. The patient was scheduled for yesterday. Did not come. His daughter and granddaughter visited him today. He was being a bit confused and not agreeing to take his insulin and they called ems. In the hospital he was found to have an elevated troponin. The patient sugar is of course in the 400s He is sort of bargaining. States that he only takes it when it is high(his nurse and family have been telling him it is high for the past 2 days and he still hasn't taken it) His granddaughter is at the bedside she has his POA. The family would like him to move in with them Allergies lorazepam [From Ativan] Allergy (Severe, Verified 10/04/21 13:11) Shortness of breath Home Medications: Carvedilol [Coreg] 3.125 mg PO BID 06/27/22 Ferrous Gluconate 240 mg PO DAILY 06/27/22 Gabapentin 100 mg PO TID 06/27/22 Insulin Glargine,Hum.rec.anlog [Ivonne Solostar] 30 units SQ DAILY 06/27/22 Lactulose 15 ml PO BID 06/27/22 Lisinopril [Zestril] 20 mg PO DAILY 06/27/22 Metformin ER [Glucophage ER*] 500 mg PO BID 06/27/22 Pantoprazole [Protonix Tab*] 40 mg PO DAILY 06/27/22 Spironolactone 25 mg PO BID 06/27/22 hydrOXYzine HCL [Hydroxyzine HCl] 20 mg PO BIDP PRN 06/27/22 - Past Medical/Surgical History Diabetic: Yes -: DM II -: HTN -: CHF -: Liver cirrhosis, -: Hyperlipidemia -: Obesity -: GERD -: Gastric varices -: H pylori gastritis -: psoriasis -: Hernia repair Psychosocial/ Personal History: Patient has significant other. - Family History Father -: Diabetes Mother -: Liver disease - Social History Alcohol use: No CD- Drugs: No Caffeine use: Yes Review of Systems 10-point ROS is otherwise unremarkable ENT: Mouth Pain Physical Examination - Physical Exam General: Alert, In no apparent distress HEENT: PERRLA, Mucous membr. moist/pink, Other (bruising around the mouth. no significant inflammation around the oral mucosa. Other than recent extractions ), EOMI, Sclerae nonicteric Neck: Supple, 2+ carotid pulse no bruit, No LAD, Without JVD or thyroid abnormality Respiratory: Clear to auscultation bilaterally, Normal air movement Cardiovascular: Regular rate/rhythm, Normal S1 S2 Gastrointestinal: Normal bowel sounds, No tenderness Musculoskeletal: No tenderness Integumentary: No rashes Neurological: Normal gait, Normal speech, Normal strength at 5/5 x4 extr, Normal tone, Normal affect Lymphatics: No axilla or inguinal lymphadenopathy - Studies Laboratory Data (last 24 hrs) 08/13/22 13:45: PT 14.6 H, INR 1.33 08/13/22 13:45: WBC 9.30, Hgb 10.8 L, Hct 34.4 L, Plt Count 65 L 08/13/22 13:45: Sodium 133 L, Potassium 3.5, BUN 8, Creatinine 0.81, Glucose 413 H*, Magnesium 1.8 Assessment and Plan - Problems (Diagnosis) (1) NSTEMI (non-ST elevated myocardial infarction) Current Visit: Yes Status: Acute Plan: will order serial troponins. Consult to Dr. Wright (2) Cognitive and behavioral changes Current Visit: Yes Status: Chronic Plan: family would like him to move in with them. The granddaughter has POA. He is currently agreeing to move in with them. The patient can be seen by Dr. Barn well. Perhaps we can make the diagnosis of dementia. Cannot declare him incompetent. as that is for a electrical installer to do. A dementia diagnosis would be of benefit if the family decided to pursue that route. (3) Alcoholic cirrhosis Current Visit: No Status: Chronic Plan: He is being worked up for his transplant. Will start him on his home dose of lactulose Qualifiers: Ascites presence: with ascites Qualified Code(s): K70.31 - Alcoholic cirrhosis of liver with ascites (4) Diabetes mellitus Onset Date: 05/24/18 Current Visit: No Status: Chronic Plan: will start the patient on a liquid diet. start a lower dose of his lantus. Normally on 40units. With a sliding scale. Will also put him on iv fluids. Qualifiers: Diabetes mellitus type: type 2 Diabetes mellitus senior living insulin use: with termite inspector use Diabetes mellitus complication status: without complication Qualified Code(s): E11.9 - Type 2 diabetes mellitus without complications; Z79.4 - termite inspector (current) use of insulin (5) HTN (hypertension) Onset Date: 05/24/18 Current Visit: No Status: Chronic Plan: will restart home meds and adjust as needed Qualifiers: Hypertension type: primary hypertension Discharge Plan: Home Plan to discharge in: Greater than 2 days - Advance Directives Does patient have a Living Will: No Does patient have a Durable POA for Healthcare: Yes - Code Status/Comfort Care Code Status Assessed: Yes Code Status: Full Code Physician Review: Patient Assessed, Agree with Above Assessment and Plan Critical Care: No Time Spent Managing Pts Care (In Minutes): 50
[2022-08-13] MEDS ORDERED: NA CHLORIDE 0.9% 1,000 ML ONE ×2 (16:16→17:41)
[2022-08-13] MEDS ORDERED: LACTULOSE 20 GM/30 ML UCUP PO PRN (16:19)
[2022-08-13] MEDS: INSULIN -REGULAR HUMAN 50 UNIT/0.5 ML ML SQ SCH ×2 (16:30→21:00)
[2022-08-13] MEDS ORDERED: INSULIN -REGULAR HUMAN 50 UNIT/0.5 ML ML SQ SCH (16:30)
[2022-08-13 16:37] LABS: Albumin 2.6 g/dL (3.4-5.0); Bilirubin Direct 0.6 mg/dL (0-0.2); Bilirubin Total 1.7 mg/dL (0.2-1.0); Protein, Total 6.5 g/dL (6.4-8.2)
[2022-08-13] MEDS ORDERED: ENOXAPARIN 100 MG/ML SYR SQ SCH (17:00)
[2022-08-13] MEDS: NA CHLORIDE 0.9% 1,000 ML IV SCH (17:00)
[2022-08-13 17:13] LABS: SARS-COV-2 RT PCR NEGATIVE (NEGATIVE)
[2022-08-13] MEDS ORDERED: NA CHLORIDE 0.9% 500 ML ONE (17:41)
[2022-08-13 19:29] VITALS: BMI 38.4
[2022-08-13] MEDS: carvediloL 6.25 MG TAB PO SCH (21:00)
[2022-08-13] MEDS: GABAPENTIN 100 MG CAP PO SCH (21:00)
[2022-08-13] MEDS: SPIRONOLACTONE 25 MG TABLET PO SCH (21:00)
[2022-08-13] MEDS ORDERED: SPIRONOLACTONE 25 MG TABLET ONE (21:42)
[2022-08-13] MEDS ORDERED: GABAPENTIN 100 MG CAP ONE (22:13)
[2022-08-13] MEDS ORDERED: carvediloL 6.25 MG TAB ONE (22:30)
[2022-08-14 02:36] LABS: Absolute Lymphocytes (CBC) 2.1 K/uL (0.7-4.9); Hematocrit 32.3 % (39.6-49.0); Lymphocytes % 28.3 % (15.3-44.8); MCV 75.2 fL (80-100); MPV 8.6 fL (7.6-11.3)
[2022-08-14 03:04] LABS: Bilirubin Total 1.8 mg/dL (0.2-1.0); Potassium 3.6 mEq/L (3.5-5.1); Protein, Total 5.4 g/dL (6.4-8.2)
[2022-08-14] MEDS: NA CHLORIDE 0.9% 1,000 ML IV SCH ×2 (06:20→20:03)
[2022-08-14] MEDS ORDERED: NA CHLORIDE 0.9% 1,000 ML ONE (06:56)
[2022-08-14] MEDS: INSULIN -REGULAR HUMAN 50 UNIT/0.5 ML ML SQ SCH ×4 (07:25→20:21)
[2022-08-14] MEDS: INSULIN GLARGINE 100 UNIT/ML SQ SCH (10:34)
[2022-08-14] MEDS: ASPIRIN EC 81 MG TAB PO SCH (10:35)
[2022-08-14] MEDS: SPIRONOLACTONE 25 MG TABLET PO SCH ×2 (10:37→20:04)
[2022-08-14] MEDS: lisinopriL 20 MG TAB PO SCH (10:38)
[2022-08-14] MEDS: carvediloL 6.25 MG TAB PO SCH ×2 (10:39→20:04)
[2022-08-14] MEDS: PANTOPRAZOLE 40MG TABLET PO SCH (10:39)
[2022-08-14] MEDS: GABAPENTIN 100 MG CAP PO SCH ×3 (10:40→20:04)
--- NOTE | 2022-08-14 17:21 | P.PN ---
Subjective Date of Service: 08/14/22 Primary Care Provider: Cricket Chief Complaint: NSTEMI, hyperglycemia Subjective: No new changes Review of Systems 10-point ROS is otherwise unremarkable Physical Examination - Vital Signs Temperature: 98.4 F Blood Pressure: 133/76 Pulse: 65 Respirations: 16 Pulse Ox (%): 99 - Physical Exam General: Alert, In no apparent distress HEENT: Atraumatic, PERRLA, EOMI Neck: Supple, JVD not distended Respiratory: Clear to auscultation bilaterally, Normal air movement Cardiovascular: Regular rate/rhythm, Normal S1 S2 Gastrointestinal: Normal bowel sounds, No tenderness Musculoskeletal: No tenderness Integumentary: No rashes Neurological: Normal speech, Normal tone, Normal affect Lymphatics: No axilla or inguinal lymphadenopathy Assessment And Plan - Current Problems (Diagnosis) (1) NSTEMI (non-ST elevated myocardial infarction) Current Visit: Yes Status: Acute Plan: will order serial troponins. Consult to Dr. Wright (2) Cognitive and behavioral changes Current Visit: Yes Status: Chronic Plan: family would like him to move in with them. The granddaughter has POA. He is currently agreeing to move in with them. The patient can be seen by Dr. Merrill. Perhaps we can make the diagnosis of dementia. Cannot declare him incompetent. as that is for a belt dresser to do. A dementia diagnosis would be of benefit if the family decided to pursue that route. (3) Alcoholic cirrhosis Current Visit: No Status: Chronic Plan: He is being worked up for his transplant. Will start him on his home dose of lactulose Qualifiers: Ascites presence: with ascites Qualified Code(s): K70.31 - Alcoholic cirrhosis of liver with ascites (4) Diabetes mellitus Onset Date: 05/24/18 Current Visit: No Status: Chronic Plan: will start the patient on a liquid diet. start a lower dose of his lantus. Normally on 40units. With a sliding scale. Will also put him on iv fluids. Qualifiers: Diabetes mellitus type: type 2 Diabetes mellitus vermin exterminator insulin use: with half-way use Diabetes mellitus complication status: without complication Qualified Code(s): E11.9 - Type 2 diabetes mellitus without complications; Z79.4 - termite control representative (current) use of insulin (5) HTN (hypertension) Onset Date: 05/24/18 Current Visit: No Status: Chronic Plan: will restart home meds and adjust as needed Qualifiers: Hypertension type: primary hypertension Discharge Plan: Home Plan to discharge in: 24 Hours - Code Status/Comfort Care Code Status Assessed: No Physician Review: Patient Assessed, Agree with Above Assessment and Plan Critical Care: No Time Spent Managing PTS Care (In Minutes): 25
[2022-08-14] MEDS ORDERED: LIDOCAINE VISCOUS 2% SOLN 15 ML UDC PO PRN (23:34)
[2022-08-15 06:49] LABS: Albumin 2.1 g/dL (3.4-5.0); Bilirubin Total 1.6 mg/dL (0.2-1.0); Potassium 3.6 mEq/L (3.5-5.1); Protein, Total 5.3 g/dL (6.4-8.2)
[2022-08-15] MEDS: NA CHLORIDE 0.9% 1,000 ML IV SCH ×2 (08:30→22:43)
[2022-08-15] MEDS: INSULIN GLARGINE 100 UNIT/ML SQ SCH (08:30)
[2022-08-15] MEDS: INSULIN -REGULAR HUMAN 50 UNIT/0.5 ML ML SQ SCH ×4 (08:30→22:44)
[2022-08-15] MEDS: ASPIRIN EC 81 MG TAB PO SCH (08:31)
[2022-08-15] MEDS: SPIRONOLACTONE 25 MG TABLET PO SCH ×2 (08:31→22:44)
[2022-08-15] MEDS: PANTOPRAZOLE 40MG TABLET PO SCH (08:32)
[2022-08-15] MEDS: lisinopriL 20 MG TAB PO SCH (08:32)
[2022-08-15] MEDS: GABAPENTIN 100 MG CAP PO SCH ×3 (08:33→22:43)
[2022-08-15] MEDS: carvediloL 6.25 MG TAB PO SCH ×2 (08:33→22:43)
--- NOTE | 2022-08-15 14:50 | P.PN ---
Subjective Date of Service: 08/15/22 Primary Care Provider: Cricket Chief Complaint: NSTEMI, hyperglycemia Subjective: No new changes (patient ate and could not have his stress test) Review of Systems 10-point ROS is otherwise unremarkable Integumentary: Rash (on the inner elbows) Physical Examination - Vital Signs Temperature: 97.6 F Blood Pressure: 127/70 Pulse: 71 Respirations: 14 Pulse Ox (%): 97 - Physical Exam General: Alert, In no apparent distress HEENT: Atraumatic, PERRLA, EOMI Neck: Supple, JVD not distended Respiratory: Clear to auscultation bilaterally, Normal air movement Cardiovascular: Regular rate/rhythm, Normal S1 S2 Gastrointestinal: Normal bowel sounds, No tenderness Musculoskeletal: No tenderness Integumentary: No rashes Neurological: Normal speech, Normal tone, Normal affect Lymphatics: No axilla or inguinal lymphadenopathy Assessment And Plan - Current Problems (Diagnosis) (1) NSTEMI (non-ST elevated myocardial infarction) Current Visit: Yes Status: Acute Plan: will order serial troponins. Consult to Dr. Wright (2) Cognitive and behavioral changes Current Visit: Yes Status: Chronic Plan: family would like him to move in with them. The granddaughter has POA. He is currently agreeing to move in with them. The patient can be seen by Dr. Merrill. Perhaps we can make the diagnosis of dementia. Cannot declare him i ncompetent. as that is for a appellate court judge to do. A dementia diagnosis would be of benefit if the family decided to pursue that route. (3) Alcoholic cirrhosis Current Visit: No Status: Chronic Plan: He is being worked up for his transplant. Will start him on his home dose of lactulose Qualifiers: Ascites presence: with ascites Qualified Code(s): K70.31 - Alcoholic cirrhosis of liver with ascites (4) Diabetes mellitus Onset Date: 05/24/18 Current Visit: No Status: Chronic Plan: will start the patient on a liquid diet. start a lower dose of his lantus. Normally on 40units. With a sliding scale. Will also put him on iv fluids. Qualifiers: Diabetes mellitus type: type 2 Diabetes mellitus director long term care insulin use: with director long term care use Diabetes mellitus complication status: without complication Qualified Code(s): E11.9 - Type 2 diabetes mellitus without complications; Z79.4 - marine oil terminal superintendent (current) use of insulin (5) HTN (hypertension) Onset Date: 05/24/18 Current Visit: No Status: Chronic Plan: will restart home meds and adjust as needed Qualifiers: Hypertension type: primary hypertension (6) Tinea corporis Current Visit: Yes Status: Acute Plan: will treat the patient with nystatin and oral fluconazole Discharge Plan: Home Plan to discharge in: 24 Hours - Code Status/Comfort Care Code Status Assessed: No Physician Review: Patient Assessed, Agree with Above Assessment and Plan Critical Care: No Time Spent Managing PTS Care (In Minutes): 20
[2022-08-15 15:09] LABS: Specific Gravity 1.016 (1.005-1.030); Urine Bilirubin NEGATIVE (Negative); Urine Blood Negative (Negative); Urine Clarity Clear (Clear); Urine Color Yellow (Yellow); Urine Glucose NEGATIVE (Negative); Urine Protein NEGATIVE (Negative); Urine Urobilinogen 1+ (Normal)
[2022-08-15] MEDS: FLUCONAZOLE 100 MG TAB PO SCH (16:12)
--- NOTE | 2022-08-15 17:38 | EKG ---
Test Date: 2022-08-13 Test Time: 13:46:52 Critical Care Specialist: VITO MEASUREMENT RESULTS: Intervals: Rate: 84 CO: 156 QRSD: 84 QT: 392 QTc: 463 [place]: P: 59 CO: 156 QRS: -56 T: 13 INTERPRETIVE STATEMENTS: Normal sinus rhythm Pulmonary disease pattern Left anterior fascicular block Abnormal ECG Compared to ECG 08/13/2022 13:46:24 Sinus arrhythmia no longer present Electronically Signed On 08-15-22 17:36:10 CDT by Fazal Wright
--- NOTE | 2022-08-15 17:39 | EKG ---
Test Date: 2022-08-13 Test Time: 13:46:24 Triple Air Valve Tester: VITO MEASUREMENT RESULTS: Intervals: Rate: 90 HI: 158 QRSD: 80 QT: 370 QTc: 452 [place]: P: 69 HI: 158 QRS: -48 T: 17 INTERPRETIVE STATEMENTS: Normal sinus rhythm with sinus arrhythmia Pulmonary disease pattern Left anterior fascicular block Abnormal ECG Compared to ECG 08/13/2022 13:44:49 Atrial premature complex(es) no longer present Electronically Signed On 08-15-22 17:36:11 CDT by Fazal Wright
--- NOTE | 2022-08-15 17:39 | EKG ---
Test Date: 2022-08-13 Test Time: 13:44:49 Optics Manufacturing Technician: VITO MEASUREMENT RESULTS: Intervals: Rate: 82 DC: 160 QRSD: 80 QT: 360 QTc: 420 [place]: P: 56 DC: 160 QRS: -50 T: 28 INTERPRETIVE STATEMENTS: Sinus rhythm with premature supraventricular complexes Left anterior fascicular block Abnormal ECG Compared to ECG 06/27/2022 10:15:56 Atrial premature complex(es) now present Prolonged QT interval no longer present Electronically Signed On 08-15-22 17:36:14 CDT by Fazal Wright
--- NOTE | 2022-08-15 18:04 | CON ---
Date of Consultation: 08/15/2022 Reason For Consultation: Elevated troponin. History Of Present Illness: This is a 66-year-old male with past medical history of diabetes, liver cirrhosis. Had he was eating quite a bit of ice cream and drinking soda, his sugars were very high, so he presented to the emergency room. Denied having any chest pain or shortness of breat h. Past Medical History: Significant for diabetes, hypertension, CHF, liver cirrhosis, dyslipidemia, ob esity. Medications: Refer to reconciliation sheet for detailed list. Allergies: LORAZEPAM. Family History: No premature coronary artery disease or cancer. Social History: He does not smoke or drink. Does not use any drugs. Review of Systems: All systems reviewed and they were negative except what mentioned in HPI. Physical Examination: Vital Signs: Reviewed. Head and Neck: Pupils are equal, reactive to light. Intact eye movements. No JVD. No cervical lym phadenopathy. Neck is supple. Thyroid is not enlarged. Lungs: Clear to auscultation bilaterally. No rhonchi, wheezing, or crackles. No accessory muscle u se. Heart: Regular rate and rhythm. No extra sounds. Abdomen: Soft, nontender. Bowel sounds positive. No organomegaly. No masses or hernia. No rigidi ty or rebound. Extremities: No edema, clubbing, or cyanosis. Intact pulses. Skin: No rash. Neurologic: Alert, awake, oriented x3. No acute focal deficits appreciated. Investigations: Troponin peaked at 229 and down to 218, BUN is 6, creatinine 0.61, and hemoglobin is 10.5. Assessment And Recommendations: 1.Elevated troponin. There is no chest pain. This is likely demand ischemia; however, non-ST eleva tion myocardial infarction is still a possibility. Obtain exercise nuclear stress test to further ev aluate. 2.Hypertension. Blood pressure is controlled. Continue home medications. SR/MODL Voice ID: [id number] Report ID: [id number]
[2022-08-15] MEDS: LACTULOSE 20 GM/30 ML UCUP PO SCH (22:44)
[2022-08-15] MEDS: NYSTATIN OINT 15 GM TUBE TOP SCH (22:45)
[2022-08-16 06:57] LABS: Albumin 2.1 g/dL (3.4-5.0); Bilirubin Total 1.8 mg/dL (0.2-1.0); Potassium 3.4 mEq/L (3.5-5.1); Protein, Total 5.5 g/dL (6.4-8.2)
[2022-08-16] MEDS: INSULIN -REGULAR HUMAN 50 UNIT/0.5 ML ML SQ SCH ×2 (07:26→11:17)
[2022-08-16] MEDS ORDERED: REGADENOSON 0.4 MG/5 ML SYR IV ONE (08:35)
[2022-08-16] MEDS: LACTULOSE 20 GM/30 ML UCUP PO SCH (09:00)
[2022-08-16] MEDS: NYSTATIN OINT 15 GM TUBE TOP SCH (09:00)
[2022-08-16] MEDS: FLUCONAZOLE 100 MG TAB PO SCH (10:32)
[2022-08-16] MEDS: PANTOPRAZOLE 40MG TABLET PO SCH (10:32)
[2022-08-16] MEDS: lisinopriL 20 MG TAB PO SCH (10:32)
[2022-08-16] MEDS: ASPIRIN EC 81 MG TAB PO SCH (10:33)
[2022-08-16] MEDS: SPIRONOLACTONE 25 MG TABLET PO SCH (10:33)
[2022-08-16] MEDS: GABAPENTIN 100 MG CAP PO SCH ×2 (10:33→14:20)
[2022-08-16] MEDS: carvediloL 6.25 MG TAB PO SCH (10:33)
[2022-08-16] MEDS: INSULIN GLARGINE 100 UNIT/ML SQ SCH (10:34)
[2022-08-16] MEDS: NA CHLORIDE 0.9% 1,000 ML IV SCH (10:41)
[2022-08-16 12:00] VITALS: BP 141/79; TEMP 98.5
--- NOTE | 2022-08-16 12:02 | P.PN ---
Subjective Date of Service: 08/16/22 Primary Care Provider: Cricket Chief Complaint: NSTEMI, hyperglycemia Subjective: No new changes (Patient demanding food. he has been trying to get solid food since his teeth were extracted last week.) Review of Systems 10-point ROS is otherwise unremarkable Physical Examination - Vital Signs Temperature: 98.5 F Blood Pressure: 141/79 Pulse: 74 Respirations: 16 Pulse Ox (%): 98 - Physical Exam General: Alert, In no apparent distress HEENT: Atraumatic, PERRLA, EOMI Neck: Supple, JVD not distended Respiratory: Clear to auscultation bilaterally, Normal air movement Cardiovascular: Regular rate/rhythm, Normal S1 S2 Gastrointestinal: Normal bowel sounds, No tenderness Musculoskeletal: No tenderness Integumentary: No rashes Neurological: Normal speech, Normal tone, Normal affect Lymphatics: No axilla or inguinal lymphadenopathy Assessment And Plan - Current Problems (Diagnosis) (1) NSTEMI (non-ST elevated myocardial infarction) Current Visit: Yes Status: Acute Plan: will order serial troponins. Consult to Dr. Wright 2.21 awaiting results of the stress test. If negative we can discharge the patient. (2) Cognitive and behavioral changes Current Visit: Yes Status: Chronic Plan: family would like him to move in with them. The granddaughter has POA. He is currently agreeing to move in with them. The patient can be seen by Dr. Markus casanova. Perhaps we can make the diagnosis of dementia. Cannot declare him incompetent. as that is for a application development director to do. A dementia diagnosis would be of benefit if the family decided to pursue that route. (3) Alcoholic cirrhosis Current Visit: No Status: Chronic Plan: He is being worked up for his transplant. Will start him on his home dose of lactulose Qualifiers: Ascites presence: with ascites Qualified Code(s): K70.31 - Alcoholic cirrhosis of liver with ascites (4) Diabetes mellitus Onset Date: 05/24/18 Current Visit: No Status: Chronic Plan: will start the patient on a liquid diet. start a lower dose of his lantus. Normally on 40units. With a sliding scale. Will also put him on iv fluids. Qualifiers: Diabetes mellitus type: type 2 Diabetes mellitus long-term insulin use: with terminal carman use Diabetes mellitus complication status: without complication Qualified Code(s): E11.9 - Type 2 diabetes mellitus without complications; Z79.4 - extermination supervisor (current) use of insulin (5) HTN (hypertension) Onset Date: 05/24/18 Current Visit: No Status: Chronic Plan: will restart home meds and adjust as needed Qualifiers: Hypertension type: primary hypertension (6) Tinea corporis Current Visit: Yes Status: Acute Plan: will treat the patient with nystatin and oral fluconazole Discharge Plan: Home Plan to discharge in: 24 Hours - Code Status/Comfort Care Code Status Assessed: No Physician Review: Patient Assessed, Agree with Above Assessment and Plan Critical Care: No Time Spent Managing PTS Care (In Minutes): 25
--- NOTE | 2022-08-16 12:46 | RAD REPORT ---
EXAM DESCRIPTION: NM - Rest Stress Cardiac Imaging - 08/16/2022 10:35 am CLINICAL HISTORY: ELEVATED TROPONIN COMPARISON: Rest Stress Cardiac Imaging dated 06/22/2021 TECHNIQUE: The patient was administered approximately 11.4 mCi of Tc 99m Sestamibi prior to resting SPECT imaging of the heart. The patient was then administered approximately 31.7 mCi of Tc 99m Sestam ibi following exercise or pharmacologic stress. Multiplanar SPECT images were reviewed. FINDINGS: No stress induced ischemic defect is seen to suggest stress induced ischemia. No fixed def ect is seen to suggest hibernating myocardium or scarred myocardium. The end diastolic volume is 143 ml, the end systolic volume is 53 ml, and the ejection fraction is 63 %. IMPRESSION: No scintigraphic evidence of stress induced ischemia, or myocardial infarction. Normal l eft ventricle ejection fraction, 63%.
--- NOTE | 2022-08-16 13:26 | TREADPHA ---
DX: ELEVATED TROPONIN Date of Study: 08/16/2022 Ht: 5' 6 " Wt: 237 lb 15.824 oz Consulting Physician: MARISA MEDICATIONS: ASPIRIN, COREG, DEXTROSE, LOVENOX, DIFLUCAN, NEURONTIN, GLUCAGEN, SEMGLEE, NOVOLIN-R, CEPHULAC, LISINOPRIL, MYCOSTATIN, ZOFRAN, PROTONIX, ALDACTONE HISTORY: 66 YEAR OLD MALE WITH COMPLAINTS OF CHEST PAIN. HISTORY OF DIABETES MELLITUS, HYPERTENSION, CONGESTIVE HEART FAILURE, LIVER, HYPERLIPIDEMIA. PATIENT REPORTS NO SMOKING OR DRINKING. PHYSICIAL EXAMINATION: RESTING B.P.: 135/72 RESTING H.R.: 63 RESTING EKG: NORMAL SINUS RHYTHM WITH INCOMPLETE RIGHT BUNDLE BRANCH BLOCK PROTOCOL: PHARMACOLOGIC EXERCISE TIME: 3:30 B.P. AT PEAK STRESS: 132/75 IMPRESSION: LEXISCAN INJECTED, FOLLOWED BY CARDIOLITE PER PROTOCOL. SEE NUCLEAR MEDICINE REPORT. NO SUPRAVENTRICULAR TACHYCARDIA, VENTRICULAR TACHYCARDIA. PATIENT HAD A THREE BEAT RUN OF PREMATURE VENTRICULAR COMPLEXES PRIOR TO PROCEDURE. PATIENT HAD A PREMATURE VENTRICULAR COMPLEX DURING RECOVERY. PATIENT REPORTS NO CHEST PAIN. NO ELECTROCARDIOGRAM CHANGES WITH LEXISCAN.
--- NOTE | 2022-08-16 15:25 | P.DS ---
Admission Date: 08/13/22 Discharge Date: 08/16/22 Primary Care Provider: Cricket Disposition: ROUTINE DISCHARGE Reason for Admission: NSTEMI, hyperglycemia - Problems (1) NSTEMI (non-ST elevated myocardial infarction) Current Visit: Yes Status: Acute (2) Cognitive and behavioral changes Current Visit: Yes Status: Chronic (3) Alcoholic cirrhosis Current Visit: No Status: Chronic Qualifiers: Ascites presence: with ascites Qualified Code(s): K70.31 - Alcoholic cirrhosis of liver with ascites (4) Diabetes mellitus Onset Date: 05/24/18 Current Visit: No Status: Chronic Qualifiers: Diabetes mellitus type: type 2 Diabetes mellitus joint terminal attack controller insulin use: with longterm use Diabetes mellitus complication status: without complication Qualified Code(s): E11.9 - Type 2 diabetes mellitus without complications; Z79.4 - assisted (current) use of insulin (5) HTN (hypertension) Onset Date: 05/24/18 Current Visit: No Status: Chronic Qualifiers: Hypertension type: primary hypertension (6) Tinea corporis Current Visit: Yes Status: Acute Brief History of Present Illness: 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 He had infected teeth. Which were not amenable to a liver transplant. So he was sent for extractions. Had 22 extractions on . Was to be on a liquid diet. However he has some mental deficits. Lives alone. Has been having tamales, ice cream and soda. On his home health nurse called and stated the patient was not taking his insulin and had a sugar in the 400s. The patient was scheduled for yesterday. Did not come. His daughter and granddaughter visited him today. He was being a bit confused and not agreeing to take his insulin and they called ems. In the hospital he was found to have an elevated troponin. The patient sugar is of course in the 400s He is sort of bargaining. States that he only takes it when it is high(his nurse and family have been telling him it is high for the past 2 days and he still hasn't taken it) His granddaughter is at the bedside she has his POA. The family would like him to move in with them Hospital Course: Patient admitted kept on a soft diet. Which he did not like. The patient had a negative stress test. Will discharge him home. Have him follow up in a week. His daughter and grandaughter will try to take him to they're home and take care of him. Thank you for allowing me to take part in his care Vital Signs/Physical Exam: Temp Pulse Resp BP Pulse Ox 98.5 F 74 16 141/79 H 98 08/16/22 12:02 08/16/22 12:02 08/16/22 12:02 08/16/22 12:02 08/16/22 12:02 General: Alert, In no apparent distress HEENT: Atraumatic, PERRLA, EOMI Neck: Supple, JVD not distended Respiratory: Clear to auscultation bilaterally, Normal air movement Cardiovascular: Regular rate/rhythm, Normal S1 S2 Gastrointestinal: Normal bowel sounds, No tenderness Musculoskeletal: No tenderness Integumentary: No rashes Neurological: Normal speech, Normal tone, Normal affect Lymphatics: No axilla or inguinal lymphadenopathy Laboratory Data at Discharge: WBC 7.50 thou/uL (4.3-10.9) 08/14/22 02:07 Hgb 10.5 g/dL (13.6-17.9) L 08/14/22 02:07 Hct 32.3 % (39.6-49.0) L 08/14/22 02:07 Plt Count 57 thou/uL (152-406) L 08/14/22 02:07 PT 14.6 SECONDS (9.5-12.5) H 08/13/22 13:45 INR 1.33 08/13/22 13:45 Sodium 139 mEq/L (136-145) 08/16/22 06:20 Potassium 3.4 mEq/L (3.5-5.1) L 08/16/22 06:20 BUN 6 mg/dL (7-18) L 08/16/22 06:20 Creatinine 0.54 mg/dL (0.70-1.30) L 08/16/22 06:20 Glucose 109 mg/dL (74-106) H 08/16/22 06:20 Magnesium 1.8 mg/dL (1.6-2.4) 08/13/22 13:45 Total Bilirubin 1.8 mg/dL (0.2-1.0) H 08/16/22 06:20 AST 45 U/L (15-37) H 08/16/22 06:20 ALT 42 U/L (16-61) 08/16/22 06:20 Alkaline Phosphatase 152 U/L (45-117) H 08/16/22 06:20 Home Medications: Carvedilol [Coreg] 3.125 mg PO BID 06/27/22 Ferrous Gluconate 240 mg PO DAILY 06/27/22 Gabapentin 100 mg PO TID 06/27/22 Insulin Glargine,Hum.rec.anlog [Toujeo Solostar] 30 units SQ DAILY 06/27/22 Lactulose 15 ml PO BID 06/27/22 Lisinopril [Zestril] 20 mg PO DAILY 06/27/22 Metformin ER [Glucophage ER*] 500 mg PO BID 06/27/22 Pantoprazole [Protonix Tab*] 40 mg PO DAILY 06/27/22 Spironolactone 25 mg PO BID 06/27/22 hydrOXYzine HCL [Hydroxyzine HCl] 20 mg PO BIDP PRN 06/27/22 Diet: ADA Activity: Ad jasmin Followup: Bebeto Harley MD [Primary Care Provider] - Time spent managing pt's care (in minutes): 45
[2022-08-16 15:32] VITALS: O2SAT 98
== END 2022-08-16 15:30 | disposition home or self-care (01) | DRG 639 ==
LOC: SUPCPDRO 13:15 → ER 13:15 → ERHOLD 15:38 → 2ND 08-14 07:43
PROVIDERS: ADMIT Internal Medicine; ATTEND Internal Medicine
DX: E11.65 Type 2 diabetes mellitus with hyperglycemia (principal); I10 Essential (primary) hypertension; E78.5 Hyperlipidemia, unspecified; K21.9 Gastro-esophageal reflux disease without esophagitis; K70.31 Alcoholic cirrhosis of liver with ascites; F03.90 Unspecified dementia, unspecified severity, without behavioral disturbance, psychotic disturbance, mood disturbance, and anxiety; F17.210 Nicotine dependence, cigarettes, uncomplicated; T38.3X6A Underdosing of insulin and oral hypoglycemic [antidiabetic] drugs, initial encounter; B35.4 Tinea corporis; R77.8 Other specified abnormalities of plasma proteins; Z60.2 Problems related to living alone; Z79.4 Long term (current) use of insulin; Z88.8 Allergy status to other drugs, medicaments and biological substances; Z91.14 Patient's other noncompliance with medication regimen; Z79.84 Long term (current) use of oral hypoglycemic drugs; Z91.128 Patient's intentional underdosing of medication regimen for other reason; Z20.822 Contact with and (suspected) exposure to COVID-19
CPT/HCPCS: 0240U; 36415; 70450; 71045; 78452; 80048; 80053; 80076; 81003; 81015; 82140; 82947; 83605; 83735; 83880; 84484; 85025; 85610; 87040; 93005; 93017; 96361; 96372; 96374; 99285; A9500; J1650; J1815; J2785; J7030; J7040

== ENCOUNTER 2023-01-17 15:50 | Emergency (ER) | payer OTHER, MEDICARE ==
--- OUTSIDE RECORDS SUMMARY | 2023-01-17 16:15 | XMS REPORT | Continuity of Care Document ---
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 [address] [facility] oxide 08-23 [id number] tablet [facility] (MAG-OX) 00:00: 00:00 3D (400 mg Medic al 400 mg 00 :00 total) by [place] (241.3 mg mouth in magnesium) the tablet morning and 1 tablet (400 mg total) at noon and 1 tablet (400 mg total) in the evening. tacrolimus 2022-0 2022- No 2mg QD Take [address] [facility] (PROGRAF) 1 08-23 03-30 capsules [facility]mael es MG capsule 00:00: 00:00 (2 mg Medic al 00 :00 total) by Center mouth every evening. tacrolimus 2022-0 3- No 3mg Take [address] [facility] (PROGRAF) 1 - 03-30 capsules [facility]el es MG capsule 00:00: 00:00 (3 mg Medic al 00 :00 total) by Center mouth in the morning. insulin 2022-0 2022- No 30U QD Inject 0.[address] [facility] glargine 08-23 03-30 mLs (30 [facility] U-300 conc 00:00: 00:00 Units Medic al ([place] Max 00 :00 total) Center U-300 subcutaneo SoloStar) usly in 300 unit/mL the (3 mL) morning. syringe triamcinolo 3-0 Yes Q.5D Apply [facility]-04 topically [facility] (KENALOG) 10:14: 2 (two) Medic al 0.1 % 22 times Center topical daily to cream affected area. . traZODone 3-0 Yes 50mg QD Take [address] [facility] [address] [facility] (DESYREL) 1-04 by mouth [facility] 50 MG 10:14: nightly. Medical tablet 22 Center triamcinolo 2023-0 Yes Q.5D Apply [facility] topically [facility] (KENALOG) 10:14: 2 (two) Medic al 0.1 % 22 times Center topical daily to cream affected area. . traZODone 3-0 Yes 50mg QD Take [address] [facility] [address] [facility] (DESYREL) 1-04 by mouth [facility] 50 MG 10:14: nightly. Medical tablet 22 Center rifAXIMin 2023-0 Yes 550mg Q.5D Take [address] [facility] 550 mg Tab 1-04 mg by [facility] 10:14: mouth 2 Medical 21 (two) Center times daily. spironolact 2023-0 Yes 100mg QD Take [address] one 1-04 mg by [facility] (ALDACTONE) 10:14: mouth Medic al 100 MG 21 daily . Center tablet rifAXIMin 2023-0 Yes 550mg Q.5D Take [address] [facility] [address] [...] SoloStar) 300 unit/mL (3 mL) InPn insulin Yes 50U QD Inject 50 [facility] glargine 1-04 Units [facility] U-300 conc 10:14: subcutaneo M edical ([place] Max 17 usly Center U-300 daily. SoloStar) 300 unit/mL (3 mL) InPn furosemide Yes 40mg Q.33821933 Take [address] [facility] (LASIX) 20 1-04 [id number] by mouth 3 [facility] MG tablet 10:14: 3D (three) Medic al 16 times Center daily . furosemide Yes 40mg Q.[id number] Take [address] [facility] (LASIX) 20 1-04 [id number] by mouth 3 [facility] MG tablet 10:14: [...] l tablet mouth daily. lactulose 2021-05 Yes Q.[id number] Take by [facility] 10 gram/15 0-[id number] mL (15 mL) 10:10: [...] 2 (two) times a day with meals. sodium 2021-05 Yes 15mg/h Take 15 Method [...] l tablet mouth daily. lactulose 2021-05 Yes Q.[id number] Take by [facility] 10 gram/15 0-[id number] mL (15 mL) 10:10: [...] 2 (two) times a day with meals. sodium 2021-05 Yes 15mg/h Take 15 Method [...] l tablet mouth daily. lactulose 2021-05 Yes Q.[id number] Take by [facility] 10 gram/15 0-[id number] mL (15 mL) 10:10: [...] 2 (two) times a day with meals. sodium 2021-05 Yes 15mg/h Take 15 Method [...] l tablet mouth daily. lactulose 2021-05 Yes Q.[id number] Take by [facility] 10 gram/15 0-[id number] mL (15 mL) 10:10: [...] 50 MG 10:52: nightly. Medical tablet 13 [place] triamcinolo 2-0 Yes Q.5D Apply [facility] 7-27 topically [facility] (KENALOG) 10:52: 2 (two) Medic al 0.1 % 13 times Center topical daily to cream affected area. . traZODone 2022-0 Yes 50mg QD Take [address] [facility] [address] [facility] (DESYREL) 7-27 by mouth [facility] 50 MG 10:52: nightly. Medical tablet 13 [place] triamcinolo 2-0 Yes Q.5D Apply [facility] 7-27 topically [facility] (KENALOG) 10:52: 2 (two) Medic al 0.1 % 13 times Center topical daily to cream affected area. . traZODone 2-0 Yes 50mg QD Take [address] [facility] [address] [facility] (DESYREL) 7-27 by mouth [facility] 50 MG 10:52: nightly. Medical tablet 13 [place] [facility] 2-0 Yes Q.5D Apply [facility] topically [facility] (KENALOG) 10:52: 2 (two) Medic al 0.1 % 13 times Center topical daily to cream affected area. . traZODone 2-0 Yes 50mg QD Take [address] [facility] [address] [facility] (DESYREL) 7-27 by mouth [facility] 50 MG 10:52: nightly. Medical tablet 13 [place] spironolact 2-0 Yes 100mg QD Take [address] one 7-27 mg by [facility] (ALDACTONE) 10:52: mouth Medic al 100 MG 11 daily . [place] tablet spironolact 2022-0 Yes 100mg QD Take [address] one 7-27 mg by [facility] (ALDACTONE) 10:52: mouth Medic al 100 MG 11 daily . [place] tablet spironolact 2022-0 Yes 100mg QD Take [address] one 7-27 mg by [facility] (ALDACTONE) 10:52: mouth Medic al 100 MG 11 daily . [place] tablet spironolact 2022-0 Yes 100mg QD Take [address] one 7-27 mg by [facility] (ALDACTONE) 10:52: mouth Medic al 100 MG 11 daily . [place] tablet rifAXIMin 2022-0 Yes 550mg Q.5D Take [...] Medical 10 (two) Center times daily. insulin 0 Yes 50U QD Inject 50 [...] (3 mL) InPn furosemide 0 Yes 40mg Q.25569025 Take [address] [facility] (LASIX) 20 7-27 [id number] by mouth 3 [facility] MG tablet 10:52: 3D (three) Medic al 04 times Center daily . furosemide 2021-0 Yes 40mg Q.[id number] Take [address] [facility] (LASIX) 20 7-27 [id number] by mouth 3 [facility] MG tablet 10:52: 3D (three) Medic al 04 times Center daily . furosemide 2022-0 Yes 40mg Q.[id number] Take [address] [facility] (LASIX) 20 7-27 [id number] by mouth 3 [facility] MG tablet 10:52: 3D (three) Medic al 04 times Center daily . furosemide 2022-0 Yes 40mg Q.[id number] Take [address] [facility] (LASIX) 20 7-27 [id number] by mouth 3 [facility] MG tablet 10:52: 3D (three) Medic al 04 times Center daily . gabapentin 2022-0 Yes 100mg Q.[id number] Take [address] [facility] (NEURONTIN) 5-06 [id number] mg by L [facility] 100 MG 00:00: 3D mouth 3 Medical capsule 00 (three) Center times daily. gabapentin 2022-0 Yes 100mg Q.[id number] Take [address] [facility] (NEURONTIN) 5-06 [id number] mg by L [facility] 100 MG 00:00: 3D mouth 3 Medical capsule 00 (three) Center times daily. gabapentin 2022-0 Yes 100mg Q.[id number] Take [address] [facility] [address] (NEURONTIN) 5-06 [id number] mg by L u[facility] 100 MG 00:00: 3D mouth 3 Medical capsule 00 (three) Center times daily. gabapentin 2022-0 Yes 100mg Q.[id number] Take [address] [facility] [address] (NEURONTIN) 5-06 [id number] mg by L [facility] 100 MG 00:00: 3D mouth 3 Medical capsule 00 (three) Center times daily. gabapentin 2022-0 Yes 100mg Q.[id number] Take [address] [facility] (NEURONTIN) 5-06 [id number] mg by L [facility] 100 MG 00:00: 3D mouth 3 Medical capsule 00 (three) Center times daily. gabapentin 2022-0 Yes 100mg Q.[id number] Take [address] [facility] [address] (NEURONTIN) 5-06 [id number] mg by L [facility] 100 MG 00:00: 3D mouth 3 Medical capsule 00 (three) Center times daily. gabapentin 2022-0 2023- No 100mg Q.[id number] Take [address] [facility] (NEURONTIN) 5-06 03-28 [id number] mg by [facility] 100 MG 00:00: 00:00 3D mouth 3 Medical capsule 00 :00 (three) Center times daily. FUROSEMIDE 2020-05 Yes [id number] TAKE ONE [facility] 40 mg 0-20 (1) TABLET ity of tablet 00:00: BY MOUTH [place] 00 TWICE Medical DAILY IN [place] THE MORNING AND EVENING FUROSEMIDE 2020-05 Yes [id number] TAKE ONE [facility] 40 mg 0-20 (1) TABLET ity of tablet 00:00: BY MOUTH [place] TWICE Medical DAILY IN [place] THE MORNING AND EVENING FUROSEMIDE 2020-05 Yes [id number] TAKE ONE [facility] 40 mg 0-20 (1) TABLET ity of tablet 00:00: BY MOUTH [place] TWICE Medical DAILY IN [place] THE MORNING AND EVENING FUROSEMIDE 2020-05 Yes [id number] TAKE ONE [facility] 40 mg 0-20 (1) TABLET ity of tablet 00:00: BY MOUTH [place] TWICE Medical DAILY IN [place] THE MORNING AND EVENING FUROSEMIDE 2020-05 Yes [id number] TAKE ONE [facility] 40 mg 0-20 (1) TABLET ity of tablet 00:00: BY MOUTH [place] TWICE Medical DAILY IN [place] THE MORNING AND EVENING PANTOPRAZOL 2020-05 Yes [id number] Take 1 [facility] E 40 mg EC 0-19 tablet by ity of tablet 00:00: mouth once [place] daily [facility] PANTOPRAZOL 2020-05 Yes [id number] Take 1 [facility] E 40 mg EC 0-19 tablet by ity of tablet 00:00: mouth once [place] daily [facility] PANTOPRAZOL 2020-05 Yes [id number] Take 1 [facility] E 40 mg EC 0-19 tablet by ity of tablet 00:00: mouth once [place] daily [facility] PANTOPRAZOL 2020-05 Yes [id number] Take 1 [facility] E 40 mg EC 0-19 tablet by ity of tablet 00:00: mouth once [place] daily [facility] PANTOPRAZOL 2020-05 Yes [id number] Take 1 [facility] E 40 mg EC 0-19 tablet by ity of tablet 00:00: mouth once [place] daily [facility] PANTOPRAZOL 2020-05 Yes [id number] Take 1 [facility] E 40 mg EC 0-19 tablet by ity of tablet 00:00: mouth once [place] daily [facility] rifAXIMin 2020-05 Yes 550mg Q.5D Take [address] 550 mg Tab 0-15 mg by [facility] 18:15: mouth 2 Medical 42 (two) Center times daily. furosemide 2020-05 Yes 40mg Q.[id number] Take [address] [facility] (LASIX) 20 0-15 [id number] by mouth 3 [facility] MG tablet 18:15: [...] with breakfast and dinner . metFORMIN 0 3- No 500mg Take [address] (GLUCOPHAGE 9-27 03-28 mg by [facility] ) 500 MG 00:00: 00:00 mouth 2 Medic al tablet 00 :00 (two) Center times daily with breakfast and dinner . rifAXIMin Yes [id number] 550mg Take 1 [facility] 550 mg 5-19 tablet by ity of tablet 00:00: mouth [place] (two) Medical times Branch daily. furosemide Yes [id number] 40mg Take 1 [facility] 40 mg 5-19 tablet by ity of tablet 00:00: mouth every Medical morning Branch and evening. hydrOXYzine Yes [id number] 50mg Take 1 U nivers 50 mg 5-19 tablet by ity of tablet 00:00: mouth 3 [place] (three) Medical times Branch daily as needed for Itching. lisinopriL 0 Yes [id number] 20mg Take 1 U nivers 20 mg 5-19 tablet by ity of tablet 00:00: mouth [place] daily. Medical Branch spironolact 0 Yes [id number] 25mg Take 1 [facility] one 25 mg 5-19 tablet by ity o f tablet 00:00: mouth [place] (two) Medical times Branch daily. carvediloL Yes [id number] 3.125mg Take 1 [facility] 3.125 mg 5-19 tablet by ity of tablet 00:00: mouth [place] (two) Medical times Branch daily with meals. Pitavastati 0 Yes [id number] 2mg Take 2 mg [facility] n (LIVALO) 5-19 by mouth ity o f 2 mg Tab 00:00: daily. Medical Branch pantoprazol 0 Yes [id number] 40mg Take 1 [facility] e 40 mg EC 5-19 tablet by ity of tablet 00:00: mouth daily. Medical Branch metFORMIN 2020-0 Yes [id number] 500mg Take 1 [facility] 500 mg 5-19 tablet by ity of tablet 00:00: mouth 2 (two) Medical times Branch daily with meals. Blood-Gluco 2020-0 Yes [id number] Use BID, [facility] se Meter 5-19 DX E11.9 ity of (ACCU-CHEK 00:00: ([facility] GUIDE 00 upon [facility] GLUCOSE insurance Branch METER) Misc approval) ACCU-CHEK GUIDE blood sugar 2020-0 Yes [id number] Use BID, Univers diagnostic 5-19 DX E11.9 ity o f (ACCU-CHEK 00:00: ([facility] GUIDE TEST 00 upon Medical STRIPS) insurance Branch strip approval) rifAXIMin 0 Yes [id number] 550mg Take 1 [facility] 550 mg 5-19 tablet by ity of tablet 00:00: mouth (two) Medical times Branch daily. furosemide 2020-0 Yes [id number] 40mg Take 1 [facility] 40 mg 5-19 tablet by ity of tablet 00:00: mouth every Medical morning Branch and evening. hydrOXYzine 2020-0 Yes [id number] 50mg Take 1 U nivers 50 mg 5-19 tablet by ity of tablet 00:00: mouth 3 (three) Medical times Branch daily as needed for Itching. lisinopriL 2020-0 Yes [id number] 20mg Take 1 U nivers 20 mg 5-19 tablet by ity of tablet 00:00: mouth daily. Medical Branch spironolact 2020-0 Yes [id number] 25mg Take 1 [facility] one 25 mg 5-19 tablet by ity o f tablet 00:00: mouth (two) Medical times Branch daily. carvediloL 2020-0 Yes [id number] 3.125mg Take 1 [facility] 3.125 mg 5-19 tablet by ity of tablet 00:00: mouth (two) Medical times Branch daily with meals. Pitavastati 2020-0 Yes [id number] 2mg Take 2 mg [facility] n (LIVALO) 5-19 by mouth ity o f 2 mg Tab 00:00: daily. Medical Branch pantoprazol 2020-0 Yes [id number] 40mg Take 1 [facility] e 40 mg EC 5-19 tablet by ity of tablet 00:00: mouth daily. Medical Branch metFORMIN 2020-0 Yes [id number] 500mg Take 1 [facility] 500 mg 5-19 tablet by ity of tablet 00:00: mouth (two) Medical times Branch daily with meals. Blood-Gluco 2020-0 Yes [id number] Use BID, [facility] se Meter 5-19 DX E11.9 ity of (ACCU-CHEK 00:00: ([place] GUIDE 00 upon Medical GLUCOSE insurance Branch METER) Misc approval) ACCU-CHEK GUIDE blood sugar 2020-0 Yes [id number] Use BID, [facility] diagnostic 5-19 DX E11.9 ity o f (ACCU-CHEK 00:00: ([facility] Elliptic GUIDE TEST 00 upon Medical STRIPS) insurance Branch strip approval) rifAXIMin 2020-0 Yes [id number] 550mg Take 1 [facility] 550 mg 5-19 tablet by ity of tablet 00:00: mouth (two) Medical times Branch daily. furosemide 2020-0 Yes [id number] 40mg Take 1 [facility] 40 mg 5-19 tablet by ity of tablet 00:00: mouth 00 every Medical morning Branch and evening. hydrOXYzine 2020-0 Yes [id number] 50mg Take 1 U nivers 50 mg 5-19 tablet by ity of tablet 00:00: mouth 3 (three) Medical times Branch daily as needed for Itching. lisinopriL 2020-0 Yes [id number] 20mg Take 1 U nivers 20 mg 5-19 tablet by ity of tablet 00:00: mouth daily. Medical Branch spironolact 2020-0 Yes [id number] 25mg Take 1 [facility] one 25 mg 5-19 tablet by ity o f tablet 00:00: mouth (two) Medical times Branch daily. carvediloL 2020-0 Yes [id number] 3.125mg Take 1 [facility] 3.125 mg 5-19 tablet by ity of tablet 00:00: mouth (two) Medical times Branch daily with meals. Pitavastati 2020-0 Yes [id number] 2mg Take 2 mg [facility] n (LIVALO) 5-19 by mouth ity o f 2 mg Tab 00:00: daily. Medical Branch pantoprazol 2020- Yes [id number] 40mg Take 1 [facility] e 40 mg EC 5-19 tablet by ity of tablet 00:00: mouth 00 daily. Medical Branch metFORMIN 2020-0 Yes [id number] 500mg Take 1 [facility] 500 mg 5-19 tablet by ity of tablet 00:00: mouth (two) Medical times Branch daily with meals. Blood-Gluco 2020- Yes [id number] Use BID, [facility] se Meter 5-19 DX E11.9 ity of (ACCU-CHEK 00:00: ([employer] [place] GUIDE 00 upon Medical GLUCOSE insurance Branch METER) Misc approval) ACCU-CHEK GUIDE blood sugar Yes [id number] Use BID, Univers diagnostic 5-19 DX E11.9 ity o f (ACCU-CHEK 00:00: ([facility] [place] GUIDE TEST 00 upon Medical STRIPS) insurance Branch strip approval) rifAXIMin Yes [id number] 550mg Take 1 [facility] 550 mg 5-19 tablet by ity of tablet 00:00: mouth (two) Medical times Branch daily. furosemide 2020- Yes [id number] 40mg Take 1 [facility] 40 mg 5-19 tablet by ity of tablet 00:00: mouth 00 every Medical morning Branch and evening. hydrOXYzine 0 Yes [id number] 50mg Take 1 U nivers 50 mg 5-19 tablet by ity of tablet 00:00: mouth 3 (three) Medical times Branch daily as needed for Itching. lisinopriL 2020-0 Yes [id number] 20mg Take 1 U nivers 20 mg 5-19 tablet by ity of tablet 00:00: mouth 00 daily. Medical Branch spironolact 2020-0 Yes [id number] 25mg Take 1 [facility] one 25 mg 5-19 tablet by ity o f tablet 00:00: mouth (two) Medical times Branch daily. carvediloL 2020-0 Yes [id number] 3.125mg Take 1 [facility] 3.125 mg 5-19 tablet by ity of tablet 00:00: mouth (two) Medical times Branch daily with meals. Pitavastati 2020-0 Yes [id number] 2mg Take 2 mg [facility] n (LIVALO) 5-19 by mouth ity o f 2 mg Tab 00:00: daily. Medical Branch pantoprazol 2020-0 Yes [id number] 40mg Take 1 [facility] e 40 mg EC 5-19 tablet by ity of tablet 00:00: mouth daily. Medical Branch metFORMIN 2020-0 Yes [id number] 500mg Take 1 [facility] 500 mg 5-19 tablet by ity of tablet 00:00: mouth (two) Medical times Branch daily with meals. Blood-Gluco 2020-0 Yes [id number] Use BID, Univers se Meter 5-19 DX E11.9 ity of (ACCU-CHEK 00:00: ([place] GUIDE 00 upon [facility] GLUCOSE insurance Branch METER) Mis approval) ACCU-CHEK GUIDE blood sugar 2020-0 Yes [id number] Use BID, Univers diagnostic 5-19 DX E11.9 ity o f (ACCU-CHEK 00:00: ([employer] GUIDE TEST 00 upon Medical STRIPS) insurance Branch strip approval) rifAXIMin 2020-0 Yes [id number] 550mg Take 1 [facility] 550 mg 5-19 tablet by ity of tablet 00:00: mouth (two) Medical times Branch daily. furosemide 2020-0 Yes [id number] 40mg Take 1 [facility] 40 mg 5-19 tablet by ity of tablet 00:00: mouth every Medical morning Branch and evening. hydrOXYzine 2020-0 Yes [id number] 50mg Take 1 U nivers 50 mg 5-19 tablet by ity of tablet 00:00: mouth (three) Medical times Branch daily as needed for Itching. lisinopriL 2020-0 Yes [id number] 20mg Take 1 U nivers 20 mg 5-19 tablet by ity of tablet 00:00: mouth daily. Medical Branch spironolact 2020-0 Yes [id number] 25mg Take 1 [facility] one 25 mg 5-19 tablet by ity o f tablet 00:00: mouth (two) Medical times Branch daily. carvediloL 2020-0 Yes [id number] 3.125mg Take 1 [facility] 3.125 mg 5-19 tablet by ity of tablet 00:00: mouth (two) Medical times Branch daily with meals. Pitavastati Yes [id number] 2mg Take 2 mg [facility] n (LIVALO) 5-19 by mouth ity o f 2 mg Tab 00:00: daily. Medical Branch metFORMIN 2020-0 Yes [id number] 500mg Take 1 [facility] 500 mg 5-19 tablet by ity of tablet 00:00: mouth 2 (two) Medical times Branch daily with meals. Blood-Gluco 2020- Yes [id number] Use BID, Univers se Meter 5-19 DX E11.9 ity of (ACCU-CHEK 00:00: ([place] GUIDE 00 upon Medical GLUCOSE insurance Branch METER) Misc approval) ACCU-CHEK GUIDE blood sugar Yes [id number] Use BID, Univers diagnostic 5-19 DX E11.9 ity o f (ACCU-CHEK 00:00: ([employer] GUIDE TEST 00 upon Medical STRIPS) insurance Branch strip approval) rifAXIMin Yes [id number] 550mg Take 1 [facility] 550 mg 5-19 tablet by ity of tablet 00:00: mouth (two) Medical times Branch daily. hydrOXYzine Yes [id number] 50mg Take 1 U nivers 50 mg 5-19 tablet by ity of tablet 00:00: mouth 3 (three) Medical times Branch daily as needed for Itching. lisinopriL Yes [id number] 20mg Take 1 U nivers 20 mg 5-19 tablet by ity of tablet 00:00: mouth daily. Medical Branch spironolact 2020- Yes [id number] 25mg Take 1 [facility] one 25 mg 5-19 tablet by ity o f tablet 00:00: mouth 2 (two) Medical times Branch daily. carvediloL 2020- Yes [id number] 3.125mg Take 1 [facility] 3.125 mg 5-19 tablet by ity of tablet 00:00: mouth (two) Medical times Branch daily with meals. Pitavastati Yes [id number] 2mg Take 2 mg [facility] n (LIVALO) 5-19 by mouth ity o f 2 mg Tab 00:00: daily. Medical Branch metFORMIN 2020- Yes [id number] 500mg Take 1 [facility] 500 mg 5-19 tablet by ity of tablet 00:00: mouth 2 (two) Medical times Branch daily with meals. Blood-Gluco 2020-0 Yes [id number] Use BID, Univers se Meter 5-19 DX E11.9 ity of (ACCU-CHEK 00:00: ([facility] [place] GUIDE 00 upon Medical GLUCOSE insurance Branch METER) Misc approval) ACCU-CHEK GUIDE blood sugar 2020-0 Yes [id number] Use BID, Univers diagnostic 5-19 DX E11.9 ity o f (ACCU-CHEK 00:00: ([facility] [place] GUIDE TEST 00 upon Medical STRIPS) insurance Branch strip approval) rifAXIMin 2020-0 Yes [id number] 550mg Take 1 [facility] 550 mg 5-19 tablet by ity of tablet 00:00: mouth (two) Medical times Branch daily. hydrOXYzine 2020-0 Yes [id number] 50mg Take 1 U nivers 50 mg 5-19 tablet by ity of tablet 00:00: mouth 3 (three) Medical times Branch daily as needed for Itching. lisinopriL 2020-0 Yes [id number] 20mg Take 1 U nivers 20 mg 5-19 tablet by ity of tablet 00:00: mouth daily. Medical Branch spironolact 2020-0 Yes [id number] 25mg Take 1 [facility] one 25 mg 5-19 tablet by ity o f tablet 00:00: mouth 2 (two) Medical times Branch daily. carvediloL 2020-0 Yes [id number] 3.125mg Take 1 [facility] 3.125 mg 5-19 tablet by ity of tablet 00:00: mouth (two) Medical times Branch daily with meals. Pitavastati 2020-0 Yes [id number] 2mg Take 2 mg [facility] n (LIVALO) 5-19 by mouth ity o f 2 mg Tab 00:00: daily. Medical Branch metFORMIN 2020-0 Yes [id number] 500mg Take 1 [facility] 500 mg 5-19 tablet by ity of tablet 00:00: mouth (two) Medical times Branch daily with meals. Blood-Gluco 2020-0 Yes [id number] Use BID, Univers se Meter 5-19 DX E11.9 ity of (ACCU-CHEK 00:00: ([facility] GUIDE upon Medical GLUCOSE insurance Branch METER) Mis approval) ACCU-CHEK GUIDE blood sugar 2020-0 Yes [id number] Use BID, Univers diagnostic 5-19 DX E11.9 ity o f (ACCU-CHEK 00:00: ([place] GUIDE TEST upon Medical STRIPS) insurance Branch strip approval) rifAXIMin 2020-0 Yes [id number] 550mg Take 1 [facility] 550 mg 5-19 tablet by ity of tablet 00:00: mouth 2 (two) Medical times Branch daily. hydrOXYzine 2020-0 Yes [id number] 50mg Take 1 U nivers 50 mg 5-19 tablet by ity of tablet 00:00: mouth 3 (three) Medical times Branch daily as needed for Itching. lisinopriL 2020-0 Yes [id number] 20mg Take 1 U nivers 20 mg 5-19 tablet by ity of tablet 00:00: mouth daily. Medical Branch spironolact 0 Yes [id number] 25mg Take 1 [facility] one 25 mg 5-19 tablet by ity o f tablet 00:00: mouth 2 (two) Medical times Branch daily. carvediloL 0 Yes [id number] 3.125mg Take 1 [facility] 3.125 mg 5-19 tablet by ity of tablet 00:00: mouth 2 (two) Medical times Branch daily with meals. Pitavastati 0 Yes [id number] 2mg Take 2 mg [facility] n (LIVALO) 5-19 by mouth ity o f 2 mg Tab 00:00: daily. Medical Branch metFORMIN 2020-0 Yes [id number] 500mg Take 1 [facility] 500 mg 5-19 tablet by ity of tablet 00:00: mouth 2 (two) Medical times Branch daily with meals. Blood-Gluco 2020-0 Yes [id number] Use BID, Univers se Meter 5-19 DX E11.9 ity of (ACCU-CHEK 00:00: ([place] GUIDE 00 upon Medical GLUCOSE insurance Branch METER) Misc approval) ACCU-CHEK GUIDE blood sugar 2020-0 Yes [id number] Use BID, [facility] diagnostic 5-19 DX E11.9 ity o f (ACCU-CHEK 00:00: ([facility] [place] GUIDE TEST 00 upon Medical STRIPS) insurance Branch strip approval) rifAXIMin 2020-0 Yes [id number] 550mg Take 1 [facility] 550 mg 5-19 tablet by ity of tablet 00:00: mouth 2 (two) Medical times Branch daily. hydrOXYzine 2020-0 Yes [id number] 50mg Take 1 U nivers 50 mg 5-19 tablet by ity of tablet 00:00: mouth 3 (three) Medical times Branch daily as needed for Itching. lisinopriL 2020-0 Yes [id number] 20mg Take 1 U nivers 20 mg 5-19 tablet by ity of tablet 00:00: mouth daily. Medical Branch spironolact 2020-0 Yes [id number] 25mg Take 1 [facility] one 25 mg 5-19 tablet by ity o f tablet 00:00: mouth 2 (two) Medical times Branch daily. carvediloL 2020-0 Yes [id number] 3.125mg Take 1 [facility] 3.125 mg 5-19 tablet by ity of tablet 00:00: mouth 2 (two) Medical times Branch daily with meals. Pitavastati 2020-0 Yes [id number] 2mg Take 2 mg [facility] n (LIVALO) 5-19 by mouth ity o f 2 mg Tab 00:00: daily. Medical Branch metFORMIN 2020-0 Yes [id number] 500mg Take 1 [facility] 500 mg 5-19 tablet by ity of tablet 00:00: mouth 2 (two) Medical times Branch daily with meals. Blood-Gluco 2020-0 Yes [id number] Use BID, Univers se Meter 5-19 DX E11.9 ity of (ACCU-CHEK 00:00: ([facility] GUIDE upon Medical GLUCOSE insurance Branch METER) Misc approval) ACCU-CHEK GUIDE blood sugar 2020-0 Yes [id number] Use BID, [facility] diagnostic 5-19 DX E11.9 ity o f (ACCU-CHEK 00:00: ([employer] GUIDE TEST 00 upon Medical STRIPS) insurance Branch strip approval) rifAXIMin 2020-0 Yes [id number] 550mg Take 1 [facility] 550 mg 5-19 tablet by ity of tablet 00:00: mouth 2 (two) Medical times Branch daily. hydrOXYzine 2021-0 Yes [id number] 50mg Take 1 U nivers 50 mg 5-19 tablet by ity of tablet 00:00: mouth 3 00 (three) Medical times Branch daily as needed for Itching. lisinopriL Yes [id number] 20mg Take 1 U nivers 20 mg 5-19 tablet by ity of tablet 00:00: mouth [place] 00 daily. Medical Branch spironolact Yes [id number] 25mg Take 1 [facility] one 25 mg 5-19 tablet by ity o f tablet 00:00: mouth 2 (two) Medical times Branch daily. carvediloL Yes [id number] 3.125mg Take 1 [facility] 3.125 mg 5-19 tablet by ity of tablet 00:00: mouth 2 (two) Medical times Branch daily with meals. Pitavastati Yes [id number] 2mg Take 2 mg [facility] n (LIVALO) 5-19 by mouth ity o f 2 mg Tab 00:00: daily. Medical Branch metFORMIN Yes [id number] 500mg Take 1 [facility] 500 mg 5-19 tablet by ity of tablet 00:00: mouth 2 (two) Medical times Branch daily with meals. Blood-Gluco Yes [id number] Use BID, Univers se Meter 5-19 DX E11.9 ity of (ACCU-CHEK 00:00: ([place] GUIDE 00 upon Medical GLUCOSE insurance Branch METER) Misc approval) ACCU-CHEK GUIDE blood sugar Yes [id number] Use BID, [facility] diagnostic 5-19 DX E11.9 ity o f (ACCU-CHEK 00:00: ([place] GUIDE TEST 00 upon Medical STRIPS) insurance Branch strip approval) furosemide 2020- No [id number] 40mg Take 1 [facility] 40 mg 5-19 10-20 tablet by ity of tablet 00:00: 00:00 mouth [place] 00 :00 every Medical morning Branch and evening. pantoprazol 2020- No [id number] 40mg Take 1 [facility] e 40 mg EC 5-19 10-19 tablet by ity of tablet 00:00: 00:00 mouth [place] 00 :00 daily. Medical Branch spironolact 2020- No 100mg Q.5D Take [address] [facility] one 4-06 04-06 mg by [facility] (ALDACTONE) 12:49: 00:00 mouth 2 Me dical 100 MG 47 :00 (two) Center tablet times daily. penicillin 2020- No 500mg Q.[id number] Take [address] [facility] potassium 4-06 04-06 [id number] mg [facility] (VEETID) 12:48: 00:00 3D [...] tablet 08 :00 daily. Center azithromyci Yes [id number] 250mg Take 1 [facility] n 3-24 tablet by ity of (ZITHROMAX 00:00: mouth [place] Z-MERCY) 250 00 daily. Medical mg tablet Take 500 Branch mg day 1, then 250 mg days 2 to 5. azithromyci 2020- No [id number] 250mg Take 1 [facility] n 3-24 05-19 tablet by ity of (ZITHROMAX 00:00: 00:00 mouth [place] Z-MERCY) 250 00 :00 daily. Medical mg tablet Take 500 Branch mg day 1, then 250 mg days 2 to 5. azithromyci 2020- No [id number] 250mg Take 1 [facility] n 3-24 05-19 tablet by ity of (ZITHROMAX 00:00: 00:00 mouth [place] Z-MERCY) 250 00 :00 daily. Medical mg tablet Take 500 Branch mg day 1, then 250 mg days 2 to 5. LISINOPRIL Yes [id number] Take 1 [facility] nivers 20 mg 3-09 tablet by ity of tablet 00:00: mouth once [place] 00 daily Medical Branch LISINOPRIL Yes [id number] Take 1 [facility] 20 mg 3-09 tablet by ity of tablet 00:00: mouth once [place] 00 daily Medical Branch LISINOPRIL 1-0 Yes [id number] Take 1 [facility] 20 mg 3-09 tablet by ity of tablet 00:00: mouth once [place] 00 daily Medical Branch LISINOPRIL 2021-0 1- No [id number] Take 1 [facility] 20 mg 3-09 05-19 tablet by ity of tablet 00:00: 00:00 [place] 00 :00 daily [facility] Branch LISINOPRIL 1-0 1- No [id number] Take 1 [facility] 20 mg 3-09 05-19 tablet by ity of tablet 00:00: 00:00 mouth [place] 00 :00 daily Medical Branch clobetasoL 1-0 Yes [id number] Apply to [facility] 0.05 % 2-09 area(s) 2 ity of cream 00:00: (two) [place] 00 times Medical daily. Branch clobetasoL 2021-0 Yes [id number] Apply to [facility] 0.05 % 2-09 area(s) 2 ity of cream 00:00: (two) [place] 00 times Medical daily. Branch clobetasoL 1-0 Yes [id number] Apply to [facility] 0.05 % 2-09 area(s) 2 ity of cream 00:00: (two) [place] 00 times Medical daily. Branch clobetasoL 1-0 Yes [id number] Apply to [facility] 0.05 % 2-09 area(s) 2 ity of cream 00:00: (two) [place] 00 times Medical daily. Branch clobetasoL 2021-0 Yes [id number] Apply to [facility] 0.05 % 2-09 area(s) 2 ity of cream 00:00: (two) [place] 00 times Medical daily. Branch clobetasoL 2021-0 Yes [id number] Apply to [facility] 0.05 % 2-09 area(s) 2 ity of cream 00:00: (two) [place] 00 times Medical daily. Branch clobetasoL 2021-0 Yes [id number] Apply to [facility] 0.05 % 2-09 area(s) 2 ity of cream 00:00: (two) [place] 00 times Medical daily. Branch clobetasoL 2021-0 Yes [id number] Apply to [facility] 0.05 % 2-09 area(s) 2 ity of cream 00:00: (two) [place] 00 times Medical daily. Branch clobetasoL 2020-0 Yes [id number] Apply to [facility] 0.05 % 2-09 area(s) 2 ity of cream 00:00: (two) [place] 00 times Medical daily. Branch clobetasoL 1-0 Yes [id number] Apply to [facility] 0.05 % 2-09 area(s) 2 ity of cream 00:00: (two) [place] 00 times Medical daily. Branch clobetasoL 2020-0 Yes [id number] Apply to [facility] 0.05 % 2-09 area(s) 2 ity of cream 00:00: (two) [place] 00 times Medical daily. Branch clobetasoL 1-0 Yes [id number] Apply to [facility] 0.05 % 2-09 area(s) 2 ity of cream 00:00: (two) [place] 00 times Medical daily. Branch clobetasoL 1-0 Yes [id number] Apply to [facility] 0.05 % 2-09 area(s) 2 ity of cream 00:00: (two) [place] 00 times Medical daily. Branch clobetasoL 1-0 Yes [id number] Apply to [facility] 0.05 % 2-09 area(s) 2 ity of cream 00:00: (two) [place] 00 times Medical daily. [place] azithromyci 2020- No 500mg 500 mg, IV [...] of 1,000 mg in 03:45: 03:27 [place], [place] NaCl 0.9% 00 :00 ONCE, 1 Medical (NS) 50 mL dose, Alyssa Bran ch MINI-BAG 06/25/20 at 2145, 50 mL
Reas on for Anti-Infec tive: Documented Infection< br>Documen lisa Infection Site: Respirator y
Durat ion of Therapy: 7 days foLIC acid 2020-0 Yes [id number] 1mg Take 1 [facility] 1 mg tablet 1-28 tablet by ity of 00:00: mouth [place] 00 daily. Medical Branch foLIC acid 2020-0 Yes [id number] 1mg Take 1 [facility] 1 mg tablet 1-28 tablet by ity of 00:00: mouth [place] 00 daily. Medical Branch foLIC acid 2020-0 Yes [id number] 1mg Take 1 [facility] 1 mg tablet 1-28 tablet by ity of 00:00: mouth [place] 00 daily. Medical Branch foLIC acid 2020-0 Yes [id number] 1mg Take 1 [facility] 1 mg tablet 1-28 tablet by ity of 00:00: mouth [place] 00 daily. Medical Branch foLIC acid 2020-0 Yes [id number] 1mg Take 1 [facility] 1 mg tablet 1-28 tablet by ity of 00:00: mouth [place] 00 daily. Medical Branch foLIC acid 0 Yes [id number] 1mg Take 1 [facility] 1 mg tablet 1-28 tablet by ity of 00:00: mouth [place] 00 daily. Medical Branch foLIC acid 0 Yes [id number] 1mg Take 1 [facility] 1 mg tablet 1-28 tablet by ity of 00:00: mouth [place] 00 daily. Medical Branch foLIC acid 0 Yes [id number] 1mg Take 1 [facility] 1 mg tablet 1-28 tablet by ity of 00:00: mouth [place] 00 daily. Medical Branch foLIC acid 2020-0 Yes [id number] 1mg Take 1 [facility] 1 mg tablet 1-28 tablet by ity of 00:00: mouth [place] 00 daily. Medical Branch foLIC acid 2020-0 Yes [id number] 1mg Take 1 [facility] 1 mg tablet 1-28 tablet by ity of 00:00: mouth [place] 00 daily. Medical Branch foLIC acid 2020-0 Yes [id number] 1mg Take 1 [facility] 1 mg tablet 1-28 tablet by ity of 00:00: mouth [place] 00 daily. Medical Branch foLIC acid 2020-0 Yes [id number] 1mg Take 1 [facility] 1 mg tablet 1-28 tablet by ity of 00:00: mouth [place] 00 daily. Medical Branch foLIC acid 2021-0 Yes [id number] 1mg Take 1 [facility] 1 mg tablet -28 tablet by ity of 00:00: mouth [place] 00 daily. Medical Branch foLIC acid 0 Yes [id number] 1mg Take 1 [facility] 1 mg tablet -28 tablet by ity of 00:00: mouth [place] 00 daily. Medical Branch foLIC acid 0 Yes [id number] 1mg Take 1 [facility] 1 mg tablet -28 tablet by ity of 00:00: mouth [place] 00 daily. Medical Branch amoxicillin 2020- No [id number] 500mg Take 1 [facility] -pot 1-28 02-05 [...] topically Center 2 (two) times daily. clobetasoL 2022- No 1{appli Q.5D Apply [address] [facility] (TEMOVATE) 8- 03-28 cation} [facility] 0.05 % 00:00: 00:00 n Medical cream 00 :00 topically Center 2 (two) times daily. furosemide 2020- No 80mg Q.5D Take [address] [facility] (LASIX) 40 1-07 04-06 tablets [facility] tablet 00:00: 00:00 (80 mg Medic al 00 :00 total) by Center mouth 2 (two) times daily. furosemide 2018-05 Yes [id number] 40mg Take 1 [facility] nivers 40 mg 2-20 tablet by ity of tablet 00:00: mouth [place] 00 every Medical morning Branch and evening. metFORMIN 2018-05 Yes [id number] 500mg Take 1 [facility] 500 mg 2-20 tablet by ity of tablet 00:00: mouth 2 [place] (two) Medical times Branch daily with meals. carvedilol 2018-05 Yes [id number] 3.125mg Take 1 [facility] 3.125 mg 2-20 tablet by ity of tablet 00:00: mouth 2 [place] (two) Medical times Branch daily with meals. lisinopril 2018-05 Yes [id number] 20mg Take 1 U nivers 20 mg 2-20 tablet by ity of tablet 00:00: mouth [place] 00 daily. Medical Branch spironolact 2018-05 Yes [id number] 25mg Take 1 [facility] one 25 mg 2-20 tablet by ity o f tablet 00:00: mouth 2 [place] (two) Medical times Branch daily. rifAXIMin 2018-05 Yes [id number] 550mg Take 1 [facility] 550 mg 2-20 tablet by ity of tablet 00:00: mouth 2 [place] (two) Medical times Branch daily. albuterol 2018-05 Yes [id number] 2{puff} Inhale 2 [facility] 90 2-20 Puffs ity of mcg/actuati 00:00: every 6 [place] on inhaler 00 (six) Medical hours as Branch needed for Wheezing or Shortness of Breath. Pitavastati 2018-05 Yes [id number] 2mg Take 2 mg [facility] n (LIVALO) 2-20 by mouth ity o f 2 mg Tab 00:00: daily. 00 Medical Branch Lancets 2018-05 Yes [id number] Use BID, U nivers Misc 2-20 DX E11.9 ity of 00:00: ([facility] [place] 00 upon Medical insurance Branch approval) blood sugar 2018-05 Yes [id number] Use BID, Univers diagnostic 2-20 DX E11.9 ity o f (ACCU-CHEK 00:00: ([facility] GUIDE) 00 upon Medical strip insurance Branch approval) lactulose 2018-05 Yes [id number] 15mL Take 15 mL [facility] 10 gram/15 2-20 by mouth 3 ity of mL solution 00:00: (three) [place] 00 times Medical daily. Branch hydrOXYzine 2018-05 Yes [id number] 50mg Take 1 U nivers 50 mg 2-20 tablet by ity of tablet 00:00: mouth 3 [place] 00 (three) Medical times Branch daily as needed for Itching. calcipotrie 2018-05 Yes [id number] Apply to [facility] ne 0.005 % 2-20 area(s) 2 ity of cream 00:00: (two) [place] 00 times Medical daily. Branch clobetasol 2018-05 Yes [id number] Apply to [facility] 0.05 % 2-20 area(s) 2 ity of cream 00:00: (two) [place] 00 times Medical daily. Branch foLIC acid 2018-05 Yes [id number] 1mg Take 1 [facility] 1 mg tablet 2-20 tablet by ity of 00:00: mouth [place] 00 daily. Medical Branch pantoprazol 2018-05 Yes [id number] 40mg Take 1 [facility] e 40 mg EC 2-20 tablet by ity of tablet 00:00: mouth [place] 00 daily. Medical Branch triamcinolo 2018-05 Yes [id number] Apply to [facility] ne 2-20 affected ity of acetonide 00:00: area(s) 2 [place] 0.1 % cream 00 (two) Medical times Branch daily. furosemide 2018-05 Yes [id number] 40mg Take 1 U nivers 40 mg 2-20 tablet by ity of tablet 00:00: mouth [place] 00 every Medical morning Branch and evening. metFORMIN 2018-05 Yes [id number] 500mg Take 1 [facility] 500 mg 2-20 tablet by ity of tablet 00:00: mouth 2 (two) Medical times Branch daily with meals. carvedilol 2018-05 Yes [id number] 3.125mg Take 1 [facility] 3.125 mg 2-20 tablet by ity of tablet 00:00: mouth (two) Medical times Branch daily with meals. lisinopril 2018-05 Yes [id number] 20mg Take 1 U nivers 20 mg 2-20 tablet by ity of tablet 00:00: mouth daily. Medical Branch spironolact 2018-05 Yes [id number] 25mg Take 1 [facility] one 25 mg 2-20 tablet by ity o f tablet 00:00: mouth (two) Medical times Branch daily. rifAXIMin 2018-05 Yes [id number] 550mg Take 1 [facility] 550 mg 2-20 tablet by ity of tablet 00:00: mouth [place] (two) Medical times Branch daily. albuterol 2018-05 Yes [id number] 2{puff} Inhale 2 [facility] 90 2-20 Puffs ity of mcg/actuati 00:00: every 6 [place] on inhaler 00 (six) Medical hours as Branch needed for Wheezing or Shortness of Breath. Pitavastati 2018-05 Yes [id number] 2mg Take 2 mg [facility] n (LIVALO) 2-20 by mouth ity o f 2 mg Tab 00:00: daily. [place] [address] Medical Branch Lancets 2018-05 Yes [id number] Use BID, U nivers Misc 2-20 DX E11.9 ity of 00:00: ([facility] Medical [facility] Branch approval) blood sugar 2018-05 Yes [id number] Use BID, [facility] diagnostic 2-20 DX E11.9 ity o f (ACCU-CHEK 00:00: ([facility] GUIDE) [address] [place] [address] Medical strip insurance Branch approval) lactulose 2018-05 Yes [id number] 15mL Take 15 mL [facility] 10 gram/15 2-20 by mouth 3 ity of mL solution 00:00: (three) [place] 00 times Medical daily. Branch hydrOXYzine 2018-05 Yes [id number] 50mg Take 1 U nivers 50 mg 2-20 tablet by ity of tablet 00:00: mouth 3 00 (three) Medical times Branch daily as needed for Itching. calcipotrie 2018-05 Yes [id number] Apply to [facility] ne 0.005 % 2-20 area(s) 2 ity of cream 00:00: (two) 00 times Medical daily. Branch clobetasol 2018-05 Yes [id number] Apply to [facility] 0.05 % 2-20 area(s) 2 ity of cream 00:00: (two) [place] 00 times Medical daily. Branch foLIC acid 2018-05 Yes [id number] 1mg Take 1 [facility] 1 mg tablet 2-20 tablet by ity of 00:00: mouth 00 daily. Medical Branch pantoprazol 2018-05 Yes [id number] 40mg Take 1 [facility] e 40 mg EC 2-20 tablet by ity of tablet 00:00: mouth 00 daily. Medical Branch triamcinolo 2018-05 Yes [id number] Apply to [facility] ne 2-20 affected ity of acetonide 00:00: area(s) 2 [place] 0.1 % cream 00 (two) Medical times Branch daily. furosemide 2018-05 Yes [id number] 40mg Take 1 U nivers 40 mg 2-20 tablet by ity of tablet 00:00: mouth 00 every Medical morning Branch and evening. metFORMIN 2018-05 Yes [id number] 500mg Take 1 [facility] 500 mg 2-20 tablet by ity of tablet 00:00: mouth 2 (two) Medical times Branch daily with meals. carvedilol 2018-05 Yes [id number] 3.125mg Take 1 [facility] 3.125 mg 2-20 tablet by ity of tablet 00:00: mouth 2 (two) Medical times Branch daily with meals. lisinopril 2018-05 Yes [id number] 20mg Take 1 U nivers 20 mg 2-20 tablet by ity of tablet 00:00: mouth 00 daily. Medical Branch spironolact 2018-05 Yes [id number] 25mg Take 1 [facility] one 25 mg 2-20 tablet by ity o f tablet 00:00: mouth 2 (two) Medical times Branch daily. rifAXIMin 2018-05 Yes [id number] 550mg Take 1 [facility] 550 mg 2-20 tablet by ity of tablet 00:00: mouth 2 (two) Medical times Branch daily. albuterol 2018-05 Yes [id number] 2{puff} Inhale 2 [facility] 90 2-20 Puffs ity of mcg/actuati 00:00: every 6 [place] on inhaler 00 (six) Medical hours as Branch needed for Wheezing or Shortness of Breath. Pitavastati 2018-05 Yes [id number] 2mg Take 2 mg [facility] n (LIVALO) 2-20 by mouth ity o f 2 mg Tab 00:00: daily. [place] 00 Medical Branch Lancets 2018-05 Yes [id number] Use BID, U nivers Misc 2-20 DX E11.9 ity of 00:00: ([facility] 00 upon Medical insurance Branch approval) blood sugar 2018-05 Yes [id number] Use BID, Univers diagnostic 2-20 DX E11.9 ity o f (ACCU-CHEK 00:00: ([facility] GUIDE) [address] [place] [address] Medical strip insurance Branch approval) lactulose 2018-05 Yes [id number] 15mL Take 15 mL [facility] 10 gram/15 2-20 by mouth 3 ity of mL solution 00:00: (three) [place] 00 times Medical daily. Branch hydrOXYzine 2018-05 Yes [id number] 50mg Take 1 U nivers 50 mg 2-20 tablet by ity of tablet 00:00: mouth 3 [place] 00 (three) Medical times Branch daily as needed for Itching. calcipotrie 2018-05 Yes [id number] Apply to Univers ne 0.005 % 2-20 area(s) 2 ity of cream 00:00: (two) [place] 00 times Medical daily. Branch clobetasol 2018-05 Yes [id number] Apply to [facility] 0.05 % 2-20 area(s) 2 ity of cream 00:00: (two) [place] 00 times Medical daily. Branch pantoprazol 2018-05 Yes [id number] 40mg Take 1 [facility] e 40 mg EC 2-20 tablet by ity of tablet 00:00: mouth [place] 00 daily. Medical Branch triamcinolo 2018-05 Yes [id number] Apply to [facility] ne 2-20 affected ity of acetonide 00:00: area(s) 2 [place] 0.1 % cream 00 (two) Medical times Branch daily. furosemide 2018-05 Yes [id number] 40mg Take 1 U nivers 40 mg 2-20 tablet by ity of tablet 00:00: mouth every Medical morning Branch and evening. metFORMIN 2018-05 Yes [id number] 500mg Take 1 [facility] 500 mg 2-20 tablet by ity of tablet 00:00: mouth 2 (two) Medical times Branch daily with meals. carvedilol 2018-05 Yes [id number] 3.125mg Take 1 [facility] 3.125 mg 2-20 tablet by ity of tablet 00:00: mouth [place] (two) Medical times Branch daily with meals. lisinopril 2018-05 Yes [id number] 20mg Take 1 U nivers 20 mg 2-20 tablet by ity of tablet 00:00: mouth daily. Medical Branch spironolact 2018-05 Yes [id number] 25mg Take 1 [facility] one 25 mg 2-20 tablet by ity o f tablet 00:00: mouth [place] (two) Medical times Branch daily. rifAXIMin 2018-05 Yes [id number] 550mg Take 1 [facility] 550 mg 2-20 tablet by ity of tablet 00:00: mouth [place] (two) Medical times Branch daily. albuterol 2018-05 Yes [id number] 2{puff} Inhale 2 [facility] 90 2-20 Puffs ity of mcg/actuati 00:00: every 6 [place] on inhaler 00 (six) Medical hours as Branch needed for Wheezing or Shortness of Breath. Pitavastati 2018-05 Yes [id number] 2mg Take 2 mg [facility] n (LIVALO) 2-20 by mouth ity o f 2 mg Tab 00:00: daily. [place] 00 Medical Branch Lancets 2018-05 Yes [id number] Use BID, U nivers Misc 2-20 DX E11.9 ity of 00:00: ([facility] Medical insurance Branch approval) blood sugar 2018-05 Yes [id number] Use BID, Univers diagnostic 2-20 DX E11.9 ity o f (ACCU-CHEK 00:00: ([facility] GUIDE) [address] [place] [address] Medical strip insurance Branch approval) lactulose 2018-05 Yes [id number] 15mL Take 15 mL [facility] 10 gram/15 2-20 by mouth 3 ity of mL solution 00:00: (three) [place] 00 times Medical daily. Branch hydrOXYzine 2018-05 Yes [id number] 50mg Take 1 U nivers 50 mg 2-20 tablet by ity of tablet 00:00: mouth 3 [place] 00 (three) Medical times Branch daily as needed for Itching. calcipotrie 2018-05 Yes [id number] Apply to Univers ne 0.005 % 2-20 area(s) 2 ity of cream 00:00: (two) [place] 00 times Medical daily. Branch clobetasol 2018-05 Yes [id number] Apply to [facility] 0.05 % 2-20 area(s) 2 ity of cream 00:00: (two) [place] 00 times Medical daily. Branch pantoprazol 2018-05 Yes [id number] 40mg Take 1 [facility] e 40 mg EC 2-20 tablet by ity of tablet 00:00: mouth [place] 00 daily. Medical Branch triamcinolo 2018-05 Yes [id number] Apply to Univers ne 2-20 affected ity of acetonide 00:00: area(s) 2 [place] 0.1 % cream 00 (two) Medical times Branch daily. albuterol 2018-05 Yes [id number] 2{puff} Inhale 2 [facility] 90 2-20 Puffs ity of mcg/actuati 00:00: every 6 [place] on inhaler 00 (six) Medical hours as Branch needed for Wheezing or Shortness of Breath. Lancets 2018-05 Yes [id number] Use BID, U nivers Misc 2-20 DX E11.9 ity of 00:00: ([facility] [place] 00 upon Medical insurance Branch approval) lactulose 2018-05 Yes [id number] 15mL Take 15 mL [facility] 10 gram/15 2-20 by mouth 3 ity of mL solution 00:00: (three) [place] 00 times Medical daily. Branch calcipotrie 2018-05 Yes [id number] Apply to Univers ne 0.005 % 2-20 area(s) 2 ity of cream 00:00: (two) [place] 00 times Medical daily. Branch triamcinolo 2018-05 Yes [id number] Apply to Univers ne 2-20 affected ity of acetonide 00:00: area(s) 2 [place] 0.1 % cream 00 (two) Medical times Branch daily. furosemide 2018-05 Yes [id number] 40mg Take 1 U nivers 40 mg 2-20 tablet by ity of tablet 00:00: mouth [place] 00 every Medical morning Branch and evening. metFORMIN 2018-05 Yes [id number] 500mg Take 1 [facility] 500 mg 2-20 tablet by ity of tablet 00:00: mouth 2 (two) Medical times Branch daily with meals. carvedilol 2018-05 Yes [id number] 3.125mg Take 1 [facility] 3.125 mg 2-20 tablet by ity of tablet 00:00: mouth 2 (two) Medical times Branch daily with meals. spironolact 2018-05 Yes [id number] 25mg Take 1 [facility] one 25 mg 2-20 tablet by ity o f tablet 00:00: mouth 2 (two) Medical times Branch daily. rifAXIMin 2018-05 Yes [id number] 550mg Take 1 [facility] 550 mg 2-20 tablet by ity of tablet 00:00: mouth 2 (two) Medical times Branch daily. albuterol 2018-05 Yes [id number] 2{puff} Inhale 2 [facility] 90 2-20 Puffs ity of mcg/actuati 00:00: every 6 [place] on inhaler 00 (six) Medical hours as Branch needed for Wheezing or Shortness of Breath. Pitavastati 2018-05 Yes [id number] 2mg Take 2 mg [facility] n (LIVALO) 2-20 by mouth ity o f 2 mg Tab 00:00: daily. [place] Medical Branch Lancets 2018-05 Yes [id number] Use BID, U nivers Misc 2-20 DX E11.9 ity of 00:00: ([facility] 00 upon Medical insurance Branch approval) blood sugar 2018-05 Yes [id number] Use BID, Univers diagnostic 2-20 DX E11.9 ity o f (ACCU-CHEK 00:00: ([facility] GUIDE) [address] [place] [address] Medical strip insurance Branch approval) lactulose 2018-05 Yes [id number] 15mL Take 15 mL [facility] 10 gram/15 2-20 by mouth 3 ity of mL solution 00:00: (three) [place] 00 times Medical daily. Branch hydrOXYzine 2018-05 Yes [id number] 50mg Take 1 U nivers 50 mg 2-20 tablet by ity of tablet 00:00: mouth 3 [place] (three) Medical times Branch daily as needed for Itching. calcipotrie 2018-05 Yes [id number] Apply to Univers ne 0.005 % 2-20 area(s) 2 ity of cream 00:00: (two) [place] 00 times Medical daily. Branch pantoprazol 2018-05 Yes [id number] 40mg Take 1 [facility] e 40 mg EC 2-20 tablet by ity of tablet 00:00: mouth daily. Medical Branch triamcinolo 2018-05 Yes [id number] Apply to Univers ne 2-20 affected ity of acetonide 00:00: area(s) 2 [place] 0.1 % cream 00 (two) Medical times Branch daily. furosemide 2018-05 Yes [id number] 40mg Take 1 U nivers 40 mg 2-20 tablet by ity of tablet 00:00: mouth every Medical morning Branch and evening. metFORMIN 2018-05 Yes [id number] 500mg Take 1 [facility] 500 mg 2-20 tablet by ity of tablet 00:00: mouth (two) Medical times Branch daily with meals. carvedilol 2018-05 Yes [id number] 3.125mg Take 1 [facility] 3.125 mg 2-20 tablet by ity of tablet 00:00: mouth (two) Medical times Branch daily with meals. spironolact 2018-05 Yes [id number] 25mg Take 1 [facility] one 25 mg 2-20 tablet by ity o f tablet 00:00: mouth (two) Medical times Branch daily. rifAXIMin 2018-05 Yes [id number] 550mg Take 1 [facility] 550 mg 2-20 tablet by ity of tablet 00:00: mouth 2 (two) Medical times Branch daily. albuterol 2018-05 Yes [id number] 2{puff} Inhale 2 [facility] 90 2-20 Puffs ity of mcg/actuati 00:00: every 6 [place] on inhaler 00 (six) Medical hours as Branch needed for Wheezing or Shortness of Breath. Pitavastati 2018-05 Yes [id number] 2mg Take 2 mg [facility] n (LIVALO) 2-20 by mouth ity o f 2 mg Tab 00:00: daily. [place] Medical Branch Lancets 2018-05 Yes [id number] Use BID, U nivers Misc 2-20 DX E11.9 ity of 00:00: ([place] [address] upon Medical insurance Branch approval) blood sugar 2018-05 Yes [id number] Use BID, [facility] diagnostic 2-20 DX E11.9 ity o f (ACCU-CHEK 00:00: ([facility] [place] GUIDE) 00 upon Medical strip insurance Branch approval) lactulose 2018-05 Yes [id number] 15mL Take 15 mL [facility] 10 gram/15 2-20 by mouth 3 ity of mL solution 00:00: (three) [place] 00 times Medical daily. Branch hydrOXYzine 2018-05 Yes [id number] 50mg Take 1 U nivers 50 mg 2-20 tablet by ity of tablet 00:00: mouth 3 [place] 00 (three) Medical times Branch daily as needed for Itching. calcipotrie 2018-05 Yes [id number] Apply to Univers ne 0.005 % 2-20 area(s) 2 ity of cream 00:00: (two) [place] 00 times Medical daily. Branch pantoprazol 2018-05 Yes [id number] 40mg Take 1 [facility] e 40 mg EC 2-20 tablet by ity of tablet 00:00: mouth [place] 00 daily. Medical Branch triamcinolo 2018-05 Yes [id number] Apply to Univers ne 2-20 affected ity of acetonide 00:00: area(s) 2 [place] 0.1 % cream 00 (two) Medical times Branch daily. furosemide 2018-05 Yes [id number] 40mg Take 1 U nivers 40 mg 2-20 tablet by ity of tablet 00:00: mouth [place] 00 every Medical morning Branch and evening. metFORMIN 2018-05 Yes [id number] 500mg Take 1 [facility] 500 mg 2-20 tablet by ity of tablet 00:00: mouth 2 [place] 00 (two) Medical times Branch daily with meals. carvedilol 2018-05 Yes [id number] 3.125mg Take 1 [facility] 3.125 mg 2-20 tablet by ity of tablet 00:00: mouth 2 [place] 00 (two) Medical times Branch daily with meals. spironolact 2018-05 Yes [id number] 25mg Take 1 [facility] one 25 mg 2-20 tablet by ity o f tablet 00:00: mouth 2 [place] 00 (two) Medical times Branch daily. rifAXIMin 2018-05 Yes [id number] 550mg Take 1 [facility] 550 mg 2-20 tablet by ity of tablet 00:00: mouth 2 [place] 00 (two) Medical times Branch daily. albuterol 2018-05 Yes [id number] 2{puff} Inhale 2 [facility] 90 2-20 Puffs ity of mcg/actuati 00:00: every 6 [place] on inhaler 00 (six) Medical hours as Branch needed for Wheezing or Shortness of Breath. Pitavastati 2018-05 Yes [id number] 2mg Take 2 mg [facility] n (LIVALO) 2-20 by mouth ity o f 2 mg Tab 00:00: daily. [place] 00 Medical Branch Lancets 2018-05 Yes [id number] Use BID, U nivers Misc 2-20 DX E11.9 ity of 00:00: ([facility] 00 upon Medical insurance Branch approval) blood sugar 2018-05 Yes [id number] Use BID, Univers diagnostic 2-20 DX E11.9 ity o f (ACCU-CHEK 00:00: ([facility] GUIDE) 00 upon Medical strip insurance Branch approval) lactulose 2018-05 Yes [id number] 15mL Take 15 mL [facility] 10 gram/15 2-20 by mouth 3 ity of mL solution 00:00: (three) [place] 00 times Medical daily. Branch hydrOXYzine 2018-05 Yes [id number] 50mg Take 1 U nivers 50 mg 2-20 tablet by ity of tablet 00:00: mouth 3 [place] 00 (three) Medical times Branch daily as needed for Itching. calcipotrie 2018-05 Yes [id number] Apply to [facility] ne 0.005 % 2-20 area(s) 2 ity of cream 00:00: (two) [place] 00 times Medical daily. Branch pantoprazol 2018-05 Yes [id number] 40mg Take 1 [facility] e 40 mg EC 2-20 tablet by ity of tablet 00:00: mouth [place] 00 daily. Medical Branch triamcinolo 2018-05 Yes [id number] Apply to [facility] ne 2-20 affected ity of acetonide 00:00: area(s) 2 [place] 0.1 % cream 00 (two) Medical times Branch daily. albuterol 2018-05 Yes [id number] 2{puff} Inhale 2 [facility] 90 2-20 Puffs ity of mcg/actuati 00:00: every 6 [place] on inhaler 00 (six) Medical hours as Branch needed for Wheezing or Shortness of Breath. Lancets 2018-05 Yes [id number] Use BID, U nivers Misc 2-20 DX E11.9 ity of 00:00: ([facility] 00 upon Medical insurance Branch approval) lactulose 2018-05 Yes [id number] 15mL Take 15 mL [facility] 10 gram/15 2-20 by mouth 3 ity of mL solution 00:00: (three) [place] 00 times Medical daily. Branch calcipotrie 2018-05 Yes [id number] Apply to [facility] ne 0.005 % 2-20 area(s) 2 ity of cream 00:00: (two) [place] 00 times Medical daily. Branch triamcinolo 2018-05 Yes [id number] Apply to [facility] ne 2-20 affected ity of acetonide 00:00: area(s) 2 [place] 0.1 % cream 00 (two) Medical times Branch daily. albuterol 2018-05 Yes [id number] 2{puff} Inhale 2 [facility] 90 2-20 Puffs ity of mcg/actuati 00:00: every 6 [place] on inhaler 00 (six) Medical hours as Branch needed for Wheezing or Shortness of Breath. Lancets 2018-05 Yes [id number] Use BID, U nivers Misc 2-20 DX E11.9 ity of 00:00: (Brand [address] insurance Branch approval) lactulose 2018-05 Yes [id number] 15mL Take 15 mL [facility] 10 gram/15 2-20 by mouth 3 ity of mL solution 00:00: (three) [place] 00 times Medical daily. Branch calcipotrie 2018-05 Yes [id number] Apply to [facility] ne 0.005 % 2-20 area(s) 2 ity of cream 00:00: (two) [place] 00 times Medical daily. Branch triamcinolo 2018-05 Yes [id number] Apply to [facility] ne 2-20 affected ity of acetonide 00:00: area(s) 2 [place] 0.1 % cream 00 (two) Medical times Branch daily. albuterol 2018-05 Yes [id number] 2{puff} Inhale 2 [facility] 90 2-20 Puffs ity of mcg/actuati 00:00: every 6 [place] on inhaler 00 (six) Medical hours as Branch needed for Wheezing or Shortness of Breath. Lancets 2018-05 Yes [id number] Use BID, U nivers Misc 2-20 DX E11.9 ity of 00:00: (Brand [address] insurance Branch approval) lactulose 2018-05 Yes [id number] 15mL Take 15 mL [facility] 10 gram/15 2-20 by mouth 3 ity of mL solution 00:00: (three) [place] 00 times Medical daily. Branch calcipotrie 2018-05 Yes [id number] Apply to [facility] ne 0.005 % 2-20 area(s) 2 ity of cream 00:00: (two) [place] 00 times Medical daily. Branch triamcinolo 2018-05 Yes [id number] Apply to [facility] ne 2-20 affected ity of acetonide 00:00: area(s) 2 [place] 0.1 % cream 00 (two) Medical times Branch daily. albuterol 2018-05 Yes [id number] 2{puff} Inhale 2 [facility] 90 2-20 Puffs ity of mcg/actuati 00:00: every 6 [place] on inhaler 00 (six) Medical hours as Branch needed for Wheezing or Shortness of Breath. Lancets 2018-05 Yes [id number] Use BID, U nivers Misc 2-20 DX E11.9 ity of 00:00: (Brand [address] Branch approval) lactulose 2018-05 Yes [id number] 15mL Take 15 mL [facility] 10 gram/15 2-20 by mouth 3 ity of mL solution 00:00: (three) [place] 00 times Medical daily. Branch calcipotrie 2018-05 Yes [id number] Apply to [facility] ne 0.005 % 2-20 area(s) 2 ity of cream 00:00: (two) [place] 00 times Medical daily. Branch triamcinolo 2018- Yes [id number] Apply to [facility] ne 2-20 affected ity of acetonide 00:00: area(s) 2 [place] 0.1 % cream 00 (two) Medical times Branch daily. albuterol 2018-05 Yes [id number] 2{puff} Inhale 2 [facility] 90 2-20 Puffs ity of mcg/actuati 00:00: every 6 [place] on inhaler 00 (six) Medical hours as Branch needed for Wheezing or Shortness of Breath. Lancets 2018-05 Yes [id number] Use BID, [facility] nivers Misc 2-20 DX E11.9 ity of 00:00: (Brand [address] Branch approval) lactulose 2018-05 Yes [id number] 15mL Take 15 mL [facility] 10 gram/15 2-20 by mouth 3 ity of mL solution 00:00: (three) [place] 00 times Medical daily. Branch calcipotrie 2018-05 Yes [id number] Apply to [facility] ne 0.005 % 2-20 area(s) 2 ity of cream 00:00: (two) [place] 00 times Medical daily. Branch triamcinolo 2018-05 Yes [id number] Apply to [facility] ne 2-20 affected ity of acetonide 00:00: area(s) 2 [place] 0.1 % cream 00 (two) Medical times Branch daily. albuterol 2018-05 Yes [id number] 2{puff} Inhale 2 [facility] 90 2-20 Puffs ity of mcg/actuati 00:00: every 6 [place] on inhaler 00 (six) Medical hours as Branch needed for Wheezing or Shortness of Breath. Lancets 2018-05 Yes [id number] Use BID, U nivers Misc 2-20 DX E11.9 ity of 00:00: (Brand [address] insurance Branch approval) lactulose 2018-05 Yes [id number] 15mL Take 15 mL [facility] 10 gram/15 2-20 by mouth 3 ity of mL solution 00:00: (three) [place] 00 times Medical daily. Branch calcipotrie 2018-05 Yes [id number] Apply to [facility] ne 0.005 % 2-20 area(s) 2 ity of cream 00:00: (two) [place] 00 times Medical daily. Branch triamcinolo 2018-05 Yes [id number] Apply to [facility] ne 2-20 affected ity of acetonide 00:00: area(s) 2 [place] 0.1 % cream 00 (two) Medical times Branch daily. albuterol 2018-05 Yes [id number] 2{puff} Inhale 2 [facility] 90 2-20 Puffs ity of mcg/actuati 00:00: every 6 [place] on inhaler 00 (six) Medical hours as Branch needed for Wheezing or Shortness of Breath. Lancets 2018-05 Yes [id number] Use BID, U nivers Misc 2-20 DX E11.9 ity of 00:00: (Brand [address] insurance Branch approval) lactulose 2018-05 Yes [id number] 15mL Take 15 mL [facility] 10 gram/15 2-20 by mouth 3 ity of mL solution 00:00: (three) [place] 00 times Medical daily. Branch calcipotrie 2018-05 Yes [id number] Apply to [facility] ne 0.005 % 2-20 area(s) 2 ity of cream 00:00: (two) [place] 00 times Medical daily. Branch triamcinolo 2018-05 Yes [id number] Apply to [facility] ne 2-20 affected ity of acetonide 00:00: area(s) 2 [place] 0.1 % cream 00 (two) Medical times Branch daily. albuterol 2018-05 Yes [id number] 2{puff} Inhale 2 [facility] 90 2-20 Puffs ity of mcg/actuati 00:00: every 6 [place] on inhaler 00 (six) Medical hours as Branch needed for Wheezing or Shortness of Breath. Lancets 2018-05 Yes [id number] Use BID, U nivers Misc 2-20 DX E11.9 ity of 00:00: (Brand [address] Branch approval) lactulose 2018-05 Yes [id number] 15mL Take 15 mL [facility] 10 gram/15 2-20 by mouth 3 ity of mL solution 00:00: (three) [place] 00 times Medical daily. Branch calcipotrie 2018-05 Yes [id number] Apply to [facility] ne 0.005 % 2-20 area(s) 2 ity of cream 00:00: (two) [place] 00 times Medical daily. Branch triamcinolo 2018-05 Yes [id number] Apply to [facility] ne 2-20 affected ity of acetonide 00:00: area(s) 2 [place] [facility] 0.1 % cream 00 (two) Medical times Branch daily. albuterol 2018-05 Yes [id number] 2{puff} Inhale 2 [facility] 90 2-20 Puffs ity of mcg/actuati 00:00: every 6 [place] [facility] on inhaler 00 (six) Medical hours as Branch needed for Wheezing or Shortness of Breath. Lancets 2018-05 Yes [id number] Use BID, U nivers Misc 2-20 DX E11.9 ity of 00:00: (Brand [address] insurance Branch approval) lactulose 2018-05 Yes [id number] 15mL Take 15 mL [facility] 10 gram/15 2-20 by mouth 3 ity of mL solution 00:00: (three) [place] 00 times Medical daily. Branch calcipotrie 2018-05 Yes [id number] Apply to [facility] ne 0.005 % 2-20 area(s) 2 ity of cream 00:00: (two) [place] 00 times Medical daily. Branch triamcinolo 2018-05 Yes [id number] Apply to [facility] ne 2-20 affected ity of acetonide 00:00: area(s) 2 [place] [facility] 0.1 % cream 00 (two) Medical times Branch daily. albuterol 2018-05 Yes [id number] 2{puff} Inhale 2 [facility] 90 2-20 Puffs ity of mcg/actuati 00:00: every 6 [place] on inhaler 00 (six) Medical hours as Branch needed for Wheezing or Shortness of Breath. Lancets 2018-05 Yes [id number] Use BID, U nivers Misc 2-20 DX E11.9 ity of 00:00: (Brand [place] 00 upon Medical insurance Branch approval) lactulose 2018-05 Yes [id number] 15mL Take 15 mL [facility] 10 gram/15 2-20 by mouth 3 ity of mL solution 00:00: (three) [place] 00 times Medical daily. Branch calcipotrie 2018-05 Yes [id number] Apply to [facility] ne 0.005 % 2-20 area(s) 2 ity of cream 00:00: (two) [place] 00 times Medical daily. Branch triamcinolo 2018-05 Yes [id number] Apply to [facility] ne 2-20 affected ity of acetonide 00:00: area(s) 2 [place] [facility] 0.1 % cream 00 (two) Medical times Branch daily. furosemide 2018-05- No [id number] 40mg Take 1 [facility] 40 mg 2-20 05-19 tablet by ity of tablet 00:00: 00:00 mouth [place] 00 :00 every Medical morning Branch and evening. metFORMIN 2018-05- No [id number] 500mg Take 1 [facility] 500 mg 2-20 05-19 tablet by ity of tablet 00:00: 00:00 mouth 2 [place] 00 :00 (two) Medical times Branch daily with meals. carvedilol 2018-05- No [id number] 3.125mg Take 1 [facility] 3.125 mg 2-20 05-19 tablet by ity o f tablet 00:00: 00:00 mouth 2 [place] 00 :00 (two) Medical times Branch daily with meals. spironolact 2018-05- No [id number] 25mg Take 1 [facility] one 25 mg 2-20 05-19 tablet by ity of tablet 00:00: 00:00 mouth 2 [place] 00 :00 (two) Medical times Branch daily. rifAXIMin 2018-05- No [id number] 550mg Take 1 [facility] 550 mg 2-20 05-19 tablet by ity of tablet 00:00: 00:00 mouth 2 [place] 00 :00 (two) Medical times Branch daily. Pitavastati 2018-05- No [id number] 2mg Take 2 mg [facility] n (LIVALO) 2-20 05-19 by mouth ity of 2 mg Tab 00:00: 00:00 daily. [place] 00 :00 Medical Branch blood sugar 2018-05- No [id number] Use BID, [facility] diagnostic 2-20 05-19 DX E11.9 ity of (ACCU-CHEK 00:00: 00:00 ([place] 00 :00 upon Medical strip insurance Branch approval) hydrOXYzine 2018-05- No [id number] 50mg Take 1 [facility] 50 mg 2-20 05-19 tablet by ity of tablet 00:00: 00:00 mouth 3 [place] 00 :00 (three) Medical times Branch daily as needed for Itching. pantoprazol 2018-05- No [id number] 40mg Take 1 [facility] e 40 mg EC 2-20 05-19 tablet by ity of tablet 00:00: 00:00 mouth [place] 00 :00 daily. Medical Branch furosemide 2018-05- No [id number] 40mg Take 1 [facility] 40 mg 2-20 05-19 tablet by ity of tablet 00:00: 00:00 mouth [place] 00 :00 every Medical morning Branch and evening. metFORMIN 2018-05- No [id number] 500mg Take 1 [facility] 500 mg 2-20 05-19 tablet by ity of tablet 00:00: 00:00 mouth 2 [place] 00 :00 (two) Medical times Branch daily with meals. carvedilol 2018-05- No [id number] 3.125mg Take 1 [facility] 3.125 mg 2-20 05-19 tablet by ity o f tablet 00:00: 00:00 mouth 2 [place] 00 :00 (two) Medical times Branch daily with meals. spironolact 2018-05- No [id number] 25mg Take 1 [facility] one 25 mg 07-18- tablet by ity of tablet 00:00: 00:00 mouth 2 [place] 00 :00 (two) Medical times Branch daily. rifAXIMin 2018-05- No [id number] 550mg Take 1 [facility] 550 mg 07-18 tablet by ity of tablet 00:00: 00:00 mouth 2 [place] 00 :00 (two) Medical times Branch daily. Pitavastati 2018-05- No [id number] 2mg Take 2 mg [facility] n (LIVALO) 07-18 by mouth ity of 2 mg Tab 00:00: 00:00 daily. [place] 00 :00 Medical Branch blood sugar 2018-05- No [id number] Use BID, [facility] diagnostic 07-18 DX E11.9 ity of (ACCU-CHEK 00:00: 00:00 (Brand [place] 00 :00 upon Medical strip insurance Branch approval) hydrOXYzine 2018-05- No [id number] 50mg Take 1 [facility] 50 mg 07-18 tablet by ity of tablet 00:00: 00:00 mouth 3 [place] 00 :00 (three) Medical times Branch daily as needed for Itching. pantoprazol 2018-05- No [id number] 40mg Take 1 [facility] e 40 mg EC 07-18 tablet by ity of tablet 00:00: 00:00 mouth [place] 00 :00 daily. Medical Branch lisinopril 2018-05- No [id number] 20mg Take 1 [facility] 20 mg -08-04 tablet by ity of tablet 00:00: 00:00 mouth [place] 00 :00 daily. Medical Branch foLIC acid 2018-05- No [id number] 1mg Take 1 [facility] 1 mg tablet 07-18 tablet by it y of 00:00: 00:00 mouth [place] 00 :00 daily. Medical Branch foLIC acid 2018-05- No [id number] 1mg Take 1 [facility] 1 mg tablet -06-25 tablet by it y of 00:00: 00:00 mouth [place] 00 :00 daily. Medical Branch doxycycline 2019-0 Yes [id number] 100mg Take 1 [facility] 100 mg 8-29 tablet by ity of tablet 00:00: mouth (two) Medical times Branch daily. doxycycline 2019-0 Yes [id number] 100mg Take 1 [facility] 100 mg 8-29 tablet by ity of tablet 00:00: mouth (two) Medical times Branch daily. doxycycline 2019-0 Yes [id number] 100mg Take 1 [facility] 100 mg 8-29 tablet by ity of tablet 00:00: mouth 2 (two) Medical times Branch daily. doxycycline 2019-0 Yes [id number] 100mg Take 1 [facility] 100 mg 8-29 tablet by ity of tablet 00:00: mouth (two) Medical times Branch daily. doxycycline 2019-0 Yes [id number] 100mg Take 1 [facility] 100 mg 8-29 tablet by ity of tablet 00:00: mouth (two) Medical times Branch daily. doxycycline 2019-0 Yes [id number] 100mg Take 1 [facility] 100 mg 8-29 tablet by ity of tablet 00:00: mouth (two) Medical times Branch daily. doxycycline 2019- Yes [id number] 100mg Take 1 [facility] 100 mg 8-29 tablet by ity of tablet 00:00: mouth [place] (two) Medical times Branch daily. doxycycline 2019-0 Yes [id number] 100mg Take 1 [facility] 100 mg 8-29 tablet by ity of tablet 00:00: mouth [place] (two) Medical times Branch daily. doxycycline 2019-0 Yes [id number] 100mg Take 1 [facility] 100 mg 8-29 tablet by ity of tablet 00:00: mouth [place] (two) Medical times Branch daily. doxycycline 2019-0 Yes [id number] 100mg Take 1 [facility] 100 mg 8-29 tablet by ity of tablet 00:00: mouth [place] (two) Medical times Branch daily. doxycycline 2018-2020- No [id number] 100mg Take 1 [facility] 100 mg 8-29 05-19 tablet by ity of tablet 00:00: 00:00 mouth 2 [place] 00 :00 (two) Medical times Branch daily. doxycycline 2018-0 2020- No [id number] 100mg Take 1 [facility] 100 mg 8-29 05-19 tablet by ity of tablet 00:00: 00:00 mouth 2 [place] 00 :00 (two) Medical times Branch daily. spironolact 2019- Yes [id number] 25mg Take 1 [facility] one 25 mg 8-07 tablet by ity o f tablet 00:00: mouth 2 (two) Medical times Branch daily. spironolact Yes [id number] 25mg Take 1 [facility] one 25 mg 8-07 tablet by ity o f tablet 00:00: mouth 2 (two) Medical times Branch daily. spironolact Yes [id number] 25mg Take 1 [facility] one 25 mg 8-07 tablet by ity o f tablet 00:00: mouth 2 (two) Medical times Branch daily. spironolact Yes [id number] 25mg Take 1 [facility] one 25 mg 8-07 tablet by ity o f tablet 00:00: mouth 2 (two) Medical times Branch daily. spironolact Yes [id number] 25mg Take 1 [facility] one 25 mg 8-07 tablet by ity o f tablet 00:00: mouth (two) Medical times Branch daily. spironolact Yes [id number] 25mg Take 1 [facility] one 25 mg 8-07 tablet by ity o f tablet 00:00: mouth (two) Medical times Branch daily. spironolact Yes [id number] 25mg Take 1 [facility] one 25 mg 8-07 tablet by ity o f tablet 00:00: mouth (two) Medical times Branch daily. spironolact Yes [id number] 25mg Take 1 [facility] one 25 mg 8-07 tablet by ity o f tablet 00:00: mouth (two) Medical times Branch daily. spironolact Yes [id number] 25mg Take 1 [facility] one 25 mg 8-07 tablet by ity o f tablet 00:00: mouth (two) Medical times Branch daily. spironolact Yes [id number] 25mg Take 1 [facility] one 25 mg 8-07 tablet by ity o f tablet 00:00: mouth (two) Medical times Branch daily. ALPRAZolam Yes [id number] 1mg Take 1 [facility] 1 mg tablet 7-22 tablet by ity of 00:00: mouth 2 (two) Medical times Branch daily. Prn anxiety carvedilol 2018- Yes [id number] 3.125mg Take 1 [facility] 3.125 mg 7-22 tablet by ity of tablet 00:00: mouth 2 (two) Medical times Branch daily with meals. foLIC acid 2018- Yes [id number] 1mg Take 1 [facility] 1 mg tablet 7-22 tablet by ity of 00:00: mouth [place] 00 daily. Medical Branch furosemide 2018- Yes [id number] 40mg Take 1 [facility] 40 mg 7-22 tablet by ity of tablet 00:00: mouth [place] 00 daily. Medical Branch hydrOXYzine 2018- Yes [id number] 50mg Take 1 [facility] 50 mg 7-22 tablet by ity of tablet 00:00: mouth 3 (three) Medical times Branch daily as needed for Itching. metFORMIN 2018- Yes [id number] 500mg Take 1 [facility] 500 mg 7-22 tablet by ity of tablet 00:00: mouth 2 (two) Medical times Branch daily with meals. pantoprazol 2018- Yes [id number] 40mg Take 1 [facility] e 40 mg EC 7-22 tablet by ity of tablet 00:00: mouth 00 daily. Medical Branch clobetasol Yes [id number] Apply to [facility] 0.05 % 7-22 area(s) 2 ity of cream 00:00: (two) 00 times Medical daily. Branch triamcinolo Yes [id number] Apply to [facility] ne 7-22 affected ity of acetonide 00:00: area(s) 2 [place] 0.1 % cream 00 (two) Medical times Branch daily. ALPRAZolam Yes [id number] 1mg Take 1 [facility] 1 mg tablet 7-22 tablet by ity of 00:00: mouth 2 (two) Medical times Branch daily. Prn anxiety carvedilol 2018- Yes [id number] 3.125mg Take 1 [facility] 3.125 mg 7-22 tablet by ity of tablet 00:00: mouth 2 (two) Medical times Branch daily with meals. foLIC acid 2018- Yes [id number] 1mg Take 1 [facility] 1 mg tablet 7-22 tablet by ity of 00:00: mouth [place] 00 daily. Medical Branch furosemide Yes [id number] 40mg Take 1 [facility] 40 mg 7-22 tablet by ity of tablet 00:00: mouth [place] 00 daily. Medical Branch hydrOXYzine 2018- Yes [id number] 50mg Take 1 [facility] 50 mg 7-22 tablet by ity of tablet 00:00: mouth 3 (three) Medical times Branch daily as needed for Itching. metFORMIN 2018- Yes [id number] 500mg Take 1 [facility] 500 mg 7-22 tablet by ity of tablet 00:00: mouth 2 (two) Medical times Branch daily with meals. pantoprazol 2018- Yes [id number] 40mg Take 1 [facility] e 40 mg EC 7-22 tablet by ity of tablet 00:00: mouth 00 daily. Medical Branch clobetasol 2018- Yes [id number] Apply to [facility] 0.05 % 7-22 area(s) 2 ity of cream 00:00: (two) times Medical daily. Branch triamcinolo Yes [id number] Apply to [facility] ne 7-22 affected ity of acetonide 00:00: area(s) 2 [place] 0.1 % cream 00 (two) Medical times Branch daily. ALPRAZolam 2018- Yes [id number] 1mg Take 1 [facility] 1 mg tablet 7-22 tablet by ity of 00:00: mouth 2 (two) Medical times Branch daily. Prn anxiety carvedilol 2018-0 Yes [id number] 3.125mg Take 1 [facility] 3.125 mg 7-22 tablet by ity of tablet 00:00: mouth 2 (two) Medical times Branch daily with meals. foLIC acid 2018- Yes [id number] 1mg Take 1 [facility] 1 mg tablet 7-22 tablet by ity of 00:00: mouth 00 daily. Medical Branch furosemide 2018-0 Yes [id number] 40mg Take 1 [facility] 40 mg 7-22 tablet by ity of tablet 00:00: mouth 00 daily. Medical Branch hydrOXYzine 2018-0 Yes [id number] 50mg Take 1 [facility] 50 mg 7-22 tablet by ity of tablet 00:00: mouth 3 (three) Medical times Branch daily as needed for Itching. metFORMIN 2018- Yes [id number] 500mg Take 1 [facility] 500 mg 7-22 tablet by ity of tablet 00:00: mouth 2 (two) Medical times Branch daily with meals. pantoprazol 2018- Yes [id number] 40mg Take 1 [facility] e 40 mg EC 7-22 tablet by ity of tablet 00:00: mouth [place] 00 daily. Medical Branch clobetasol Yes [id number] Apply to [facility] 0.05 % 7-22 area(s) 2 ity of cream 00:00: (two) [place] 00 times Medical daily. Branch triamcinolo Yes [id number] Apply to [facility] ne 7-22 affected ity of acetonide 00:00: area(s) 2 [place] 0.1 % cream 00 (two) Medical times Branch daily. ALPRAZolam 2018- Yes [id number] 1mg Take 1 [facility] 1 mg tablet 7-22 tablet by ity of 00:00: mouth 2 [place] (two) Medical times Branch daily. Prn anxiety carvedilol 2018- Yes [id number] 3.125mg Take 1 [facility] 3.125 mg 7-22 tablet by ity of tablet 00:00: mouth 2 (two) Medical times Branch daily with meals. foLIC acid Yes [id number] 1mg Take 1 [facility] 1 mg tablet 7-22 tablet by ity of 00:00: mouth [place] 00 daily. Medical Branch furosemide 2018- Yes [id number] 40mg Take 1 [facility] 40 mg 7-22 tablet by ity of tablet 00:00: mouth [place] 00 daily. Medical Branch hydrOXYzine Yes [id number] 50mg Take 1 [facility] 50 mg 7-22 tablet by ity of tablet 00:00: mouth 3 [place] 00 (three) Medical times Branch daily as needed for Itching. metFORMIN Yes [id number] 500mg Take 1 [facility] 500 mg 7-22 tablet by ity of tablet 00:00: mouth 2 [place] 00 (two) Medical times Branch daily with meals. pantoprazol 2018- Yes [id number] 40mg Take 1 [facility] e 40 mg EC 7-22 tablet by ity of tablet 00:00: mouth [place] 00 daily. Medical Branch clobetasol Yes [id number] Apply to [facility] 0.05 % 7-22 area(s) 2 ity of cream 00:00: (two) [place] 00 times Medical daily. Branch triamcinolo Yes [id number] Apply to [facility] ne 7-22 affected ity of acetonide 00:00: area(s) 2 [place] 0.1 % cream 00 (two) Medical times Branch daily. ALPRAZolam 2018- Yes [id number] 1mg Take 1 [facility] 1 mg tablet 7-22 tablet by ity of 00:00: mouth 2 (two) Medical times Branch daily. Prn anxiety carvedilol 2018- Yes [id number] 3.125mg Take 1 [facility] 3.125 mg 7-22 tablet by ity of tablet 00:00: mouth 2 (two) Medical times Branch daily with meals. foLIC acid 2018- Yes [id number] 1mg Take 1 [facility] 1 mg tablet 7-22 tablet by ity of 00:00: mouth 00 daily. Medical Branch hydrOXYzine 2018- Yes [id number] 50mg Take 1 [facility] 50 mg 7-22 tablet by ity of tablet 00:00: mouth 3 (three) Medical times Branch daily as needed for Itching. metFORMIN 2018- Yes [id number] 500mg Take 1 [facility] 500 mg 7-22 tablet by ity of tablet 00:00: mouth 2 (two) Medical times Branch daily with meals. pantoprazol 2018- Yes [id number] 40mg Take 1 [facility] e 40 mg EC 7-22 tablet by ity of tablet 00:00: mouth 00 daily. Medical Branch clobetasol Yes [id number] Apply to [facility] 0.05 % 7-22 area(s) 2 ity of cream 00:00: (two) 00 times Medical daily. Branch triamcinolo Yes [id number] Apply to [facility] ne 7-22 affected ity of acetonide 00:00: area(s) 2 [place] 0.1 % cream 00 (two) Medical times Branch daily. ALPRAZolam 2018- Yes [id number] 1mg Take 1 [facility] 1 mg tablet 7-22 tablet by ity of 00:00: mouth 2 (two) Medical times Branch daily. Prn anxiety carvedilol 2018- Yes [id number] 3.125mg Take 1 [facility] 3.125 mg 7-22 tablet by ity of tablet 00:00: mouth 2 (two) Medical times Branch daily with meals. foLIC acid 2018- Yes [id number] 1mg Take 1 [facility] 1 mg tablet 7-22 tablet by ity of 00:00: mouth 00 daily. Medical Branch hydrOXYzine 2018- Yes [id number] 50mg Take 1 [facility] 50 mg 7-22 tablet by ity of tablet 00:00: mouth 3 (three) Medical times Branch daily as needed for Itching. metFORMIN Yes [id number] 500mg Take 1 [facility] 500 mg 7-22 tablet by ity of tablet 00:00: mouth 2 (two) Medical times Branch daily with meals. pantoprazol Yes [id number] 40mg Take 1 [facility] e 40 mg EC 7-22 tablet by ity of tablet 00:00: mouth 00 daily. Medical Branch clobetasol Yes [id number] Apply to [facility] 0.05 % 7-22 area(s) 2 ity of cream 00:00: (two) times Medical daily. Branch triamcinolo Yes [id number] Apply to [facility] ne 7-22 affected ity of acetonide 00:00: area(s) 2 [place] 0.1 % cream 00 (two) Medical times Branch daily. ALPRAZolam 2018- Yes [id number] 1mg Take 1 [facility] 1 mg tablet 7-22 tablet by ity of 00:00: mouth 2 (two) Medical times Branch daily. Prn anxiety carvedilol 2018- Yes [id number] 3.125mg Take 1 [facility] 3.125 mg 7-22 tablet by ity of tablet 00:00: mouth 2 (two) Medical times Branch daily with meals. foLIC acid 2018-0 Yes [id number] 1mg Take 1 [facility] 1 mg tablet 7-22 tablet by ity of 00:00: mouth 00 daily. Medical Branch hydrOXYzine Yes [id number] 50mg Take 1 [facility] 50 mg 7-22 tablet by ity of tablet 00:00: mouth 3 (three) Medical times Branch daily as needed for Itching. metFORMIN Yes [id number] 500mg Take 1 [facility] 500 mg 7-22 tablet by ity of tablet 00:00: mouth 2 (two) Medical times Branch daily with meals. pantoprazol Yes [id number] 40mg Take 1 [facility] e 40 mg EC 7-22 tablet by ity of tablet 00:00: mouth [place] 00 daily. Medical Branch clobetasol Yes [id number] Apply to [facility] 0.05 % 7-22 area(s) 2 ity of cream 00:00: (two) [place] 00 times Medical daily. Branch triamcinolo Yes [id number] Apply to [facility] ne 7-22 affected ity of acetonide 00:00: area(s) 2 [place] 0.1 % cream 00 (two) Medical times Branch daily. ALPRAZolam Yes [id number] 1mg Take 1 [facility] 1 mg tablet 7-22 tablet by ity of 00:00: mouth 2 (two) Medical times Branch daily. Prn anxiety carvedilol 2018- Yes [id number] 3.125mg Take 1 [facility] 3.125 mg 7-22 tablet by ity of tablet 00:00: mouth 2 (two) Medical times Branch daily with meals. foLIC acid Yes [id number] 1mg Take 1 [facility] 1 mg tablet 7-22 tablet by ity of 00:00: mouth 00 daily. Medical Branch hydrOXYzine Yes [id number] 50mg Take 1 [facility] 50 mg 7-22 tablet by ity of tablet 00:00: mouth 3 (three) Medical times Branch daily as needed for Itching. metFORMIN Yes [id number] 500mg Take 1 [facility] 500 mg 7-22 tablet by ity of tablet 00:00: mouth 2 (two) Medical times Branch daily with meals. pantoprazol Yes [id number] 40mg Take 1 [facility] e 40 mg EC 7-22 tablet by ity of tablet 00:00: mouth 00 daily. Medical Branch clobetasol Yes [id number] Apply to [facility] 0.05 % 7-22 area(s) 2 ity of cream 00:00: (two) 00 times Medical daily. Branch triamcinolo Yes [id number] Apply to [facility] ne 7-22 affected ity of acetonide 00:00: area(s) 2 [place] 0.1 % cream 00 (two) Medical times Branch daily. ALPRAZolam Yes [id number] 1mg Take 1 [facility] 1 mg tablet 7-22 tablet by ity of 00:00: mouth 2 (two) Medical times Branch daily. Prn anxiety carvedilol 2018- Yes [id number] 3.125mg Take 1 [facility] 3.125 mg 7-22 tablet by ity of tablet 00:00: mouth 2 (two) Medical times Branch daily with meals. foLIC acid Yes [id number] 1mg Take 1 [facility] 1 mg tablet 7-22 tablet by ity of 00:00: mouth 00 daily. Medical Branch hydrOXYzine 2018- Yes [id number] 50mg Take 1 [facility] 50 mg 7-22 tablet by ity of tablet 00:00: mouth 3 (three) Medical times Branch daily as needed for Itching. metFORMIN 2018- Yes [id number] 500mg Take 1 [facility] 500 mg 7-22 tablet by ity of tablet 00:00: mouth 2 (two) Medical times Branch daily with meals. pantoprazol Yes [id number] 40mg Take 1 [facility] e 40 mg EC 7-22 tablet by ity of tablet 00:00: mouth daily. Medical Branch clobetasol Yes [id number] Apply to [facility] 0.05 % 7-22 area(s) 2 ity of cream 00:00: (two) times Medical daily. Branch triamcinolo Yes [id number] Apply to [facility] ne 7-22 affected ity of acetonide 00:00: area(s) 2 [place] 0.1 % cream 00 (two) Medical times Branch daily. ALPRAZolam Yes [id number] 1mg Take 1 [facility] 1 mg tablet 7-22 tablet by ity of 00:00: mouth (two) Medical times Branch daily. Prn anxiety carvedilol 2018- Yes [id number] 3.125mg Take 1 [facility] 3.125 mg 7-22 tablet by ity of tablet 00:00: mouth (two) Medical times Branch daily with meals. foLIC acid Yes [id number] 1mg Take 1 [facility] 1 mg tablet 7-22 tablet by ity of 00:00: mouth 00 daily. Medical Branch hydrOXYzine Yes [id number] 50mg Take 1 [facility] 50 mg 7-22 tablet by ity of tablet 00:00: mouth 3 (three) Medical times Branch daily as needed for Itching. metFORMIN 2019- Yes [id number] 500mg Take 1 [facility] 500 mg 7-22 tablet by ity of tablet 00:00: mouth 2 (two) Medical times Branch daily with meals. pantoprazol 2018- Yes [id number] 40mg Take 1 [facility] e 40 mg EC 7-22 tablet by ity of tablet 00:00: mouth [place] 00 daily. Medical Branch clobetasol 2018- Yes [id number] Apply to [facility] 0.05 % 7-22 area(s) 2 ity of cream 00:00: (two) [place] 00 times Medical daily. Branch triamcinolo Yes [id number] Apply to [facility] ne 7-22 affected ity of acetonide 00:00: area(s) 2 [place] 0.1 % cream 00 (two) Medical times Branch daily. ALPRAZolam Yes [id number] 1mg Take 1 [facility] 1 mg tablet 7-22 tablet by ity of 00:00: mouth 2 (two) Medical times Branch daily. Prn anxiety carvedilol 2018-0 Yes [id number] 3.125mg Take 1 [facility] 3.125 mg 7-22 tablet by ity of tablet 00:00: mouth 2 (two) Medical times Branch daily with meals. foLIC acid 2018-0 Yes [id number] 1mg Take 1 [facility] 1 mg tablet 7-22 tablet by ity of 00:00: mouth 00 daily. Medical Branch hydrOXYzine Yes [id number] 50mg Take 1 [facility] 50 mg 7-22 tablet by ity of tablet 00:00: mouth 3 00 (three) Medical times Branch daily as needed for Itching. metFORMIN 2018- Yes [id number] 500mg Take 1 [facility] 500 mg 7-22 tablet by ity of tablet 00:00: mouth 2 00 (two) Medical times Branch daily with meals. pantoprazol 2018- Yes [id number] 40mg Take 1 [facility] e 40 mg EC 7-22 tablet by ity of tablet 00:00: mouth [place] 00 daily. Medical Branch clobetasol Yes [id number] Apply to [facility] 0.05 % 7-22 area(s) 2 ity of cream 00:00: (two) [place] 00 times Medical daily. Branch triamcinolo Yes [id number] Apply to [facility] ne 7-22 affected ity of acetonide 00:00: area(s) 2 [place] 0.1 % cream 00 (two) Medical times Branch daily. ALPRAZolam Yes [id number] 1mg Take 1 [facility] 1 mg tablet 7-22 tablet by ity of 00:00: mouth 2 [place] 00 (two) Medical times Branch daily. Prn anxiety carvedilol Yes [id number] 3.125mg Take 1 [facility] 3.125 mg 7-22 tablet by ity of tablet 00:00: mouth 2 (two) Medical times Branch daily with meals. foLIC acid Yes [id number] 1mg Take 1 [facility] 1 mg tablet 7-22 tablet by ity of 00:00: mouth [place] 00 daily. Medical Branch hydrOXYzine Yes [id number] 50mg Take 1 [facility] 50 mg 7-22 tablet by ity of tablet 00:00: mouth 3 00 (three) Medical times Branch daily as needed for Itching. metFORMIN Yes [id number] 500mg Take 1 [facility] 500 mg 7-22 tablet by ity of tablet 00:00: mouth 2 (two) Medical times Branch daily with meals. pantoprazol Yes [id number] 40mg Take 1 [facility] e 40 mg EC 7-22 tablet by ity of tablet 00:00: mouth [place] 00 daily. Medical Branch clobetasol Yes [id number] Apply to [facility] 0.05 % 7-22 area(s) 2 ity of cream 00:00: (two) [place] 00 times Medical daily. Branch triamcinolo Yes [id number] Apply to [facility] ne 7-22 affected ity of acetonide 00:00: area(s) 2 [place] 0.1 % cream 00 (two) Medical times Branch daily. ALPRAZolam Yes [id number] 1mg Take 1 [facility] 1 mg tablet 7-22 tablet by ity of 00:00: mouth 2 [place] (two) Medical times Branch daily. Prn anxiety carvedilol Yes [id number] 3.125mg Take 1 [facility] 3.125 mg 7-22 tablet by ity of tablet 00:00: mouth 2 [place] 00 (two) Medical times Branch daily with meals. foLIC acid Yes [id number] 1mg Take 1 [facility] 1 mg tablet 7-22 tablet by ity of 00:00: mouth [place] 00 daily. Medical Branch furosemide Yes [id number] 40mg Take 1 [facility] 40 mg 7-22 tablet by ity of tablet 00:00: mouth [place] 00 daily. Medical Branch hydrOXYzine Yes [id number] 50mg Take 1 [facility] 50 mg 7-22 tablet by ity of tablet 00:00: mouth 3 [place] 00 (three) Medical times Branch daily as needed for Itching. metFORMIN 2018- Yes [id number] 500mg Take 1 [facility] 500 mg 7-22 tablet by ity of tablet 00:00: mouth 2 [place] 00 (two) Medical times Branch daily with meals. pantoprazol Yes [id number] 40mg Take 1 [facility] e 40 mg EC 7-22 tablet by ity of tablet 00:00: mouth [place] 00 daily. Medical Branch spironolact Yes [id number] 25mg Take 1 [facility] one 25 mg 7-22 tablet by ity o f tablet 00:00: mouth 2 [place] 00 (two) Medical times Branch daily. clobetasol Yes [id number] Apply to [facility] 0.05 % 7-22 area(s) 2 ity of cream 00:00: (two) [place] 00 times Medical daily. Branch triamcinolo Yes [id number] Apply to [facility] ne 7-22 affected ity of acetonide 00:00: area(s) 2 [place] 0.1 % cream 00 (two) Medical times Branch daily. furosemide 2019- No [id number] 40mg Take 1 [facility] 40 mg 7-22 08-26 tablet by ity of tablet 00:00: 00:00 mouth [place] 00 :00 daily. Medical Branch furosemide 2019- No [id number] 40mg Take 1 [facility] 40 mg 7-22 08-26 tablet by ity of tablet 00:00: 00:00 mouth [place] 00 :00 daily. Medical Branch spironolact 2019- No [id number] 25mg Take 1 [facility] one 25 mg 7-22 08-07 tablet by ity of tablet 00:00: 00:00 mouth 2 [place] 00 :00 (two) Medical times Branch daily. Pitavastati Yes 2mg Take 2 mg U nivers n (LIVALO) 6-18 by mouth ity o f 2 mg Tab 16:18: daily. [address] Pitavastati 2019-0 Yes 2mg Take 2 mg U nivers n (LIVALO) 6-18 by mouth ity o f 2 mg Tab 16:18: daily. [address] Pitavastati 2019-0 Yes 2mg Take 2 mg U nivers n (LIVALO) 6-18 by mouth ity o f 2 mg Tab 16:18: daily. [address] Pitavastati 0 Yes 2mg Take 2 mg U nivers n (LIVALO) 6-18 by mouth ity o f 2 mg Tab 16:18: daily. [address] Pit[place] 0 Yes 2mg Take 2 mg U nivers n (LIVALO) 6-18 by mouth ity o f 2 mg Tab 16:18: daily. [address] Pitavast[place] 0 Yes 2mg Take 2 mg U nivers n (LIVALO) 6-18 by mouth ity o f 2 mg Tab 16:18: daily. [address] Pitav[place] 0 Yes 2mg Take 2 mg U nivers n (LIVALO) 6-18 by mouth ity o f 2 mg Tab 16:18: daily. [address] Pit[place] 0 Yes 2mg Take 2 mg U nivers n (LIVALO) 6-18 by mouth ity o f 2 mg Tab 16:18: daily. [address] [place] 0 Yes 2mg Take 2 mg U nivers n (LIVALO) 6-18 by mouth ity o f 2 mg Tab 16:18: daily. [address] [place] [id number] Yes 2mg Take 2 mg U nivers n (LIVALO) 6-18 by mouth ity o f 2 mg Tab 16:18: daily. [address] [place] [id number] Yes 2mg Take 2 mg U nivers n (LIVALO) 6-18 by mouth ity o f 2 mg Tab 16:18: daily. [address] Pitavastati 2018-0 Yes 2mg Take 2 mg U nivers n (LIVALO) 6-18 by mouth ity o f 2 mg Tab 16:18: daily. [place] [address] Medical Branch Pitavastati 2019-0 Yes 2mg Take 2 mg U nivers n (LIVALO) 6-18 by mouth ity o f 2 mg Tab 16:18: daily. [place] [address] Medical Branch traMADOL 2019-0 Yes [id number] 50mg Take 1 Un epifanio (ULTRAM) 50 6-18 tablet by ity of mg tablet 00:00: mouth [place] 00 every 6 Medical (six) Branch hours as needed for Pain (scale 4-6). traMADOL 2019-0 Yes [id number] 50mg Take 1 Un epifanio (ULTRAM) 50 6-18 tablet by ity of mg tablet 00:00: mouth [place] 00 every 6 Medical (six) Branch hours as needed for Pain (scale 4-6). traMADOL 2019-0 Yes [id number] 50mg Take 1 Un epifanio (ULTRAM) 50 6-18 tablet by ity of mg tablet 00:00: mouth [place] 00 every 6 Medical (six) Branch hours as needed for Pain (scale 4-6). traMADOL 2019-0 Yes [id number] 50mg Take 1 Un epifanio (ULTRAM) 50 6-18 tablet by ity of mg tablet 00:00: mouth [place] 00 every 6 Medical (six) Branch hours as needed for Pain (scale 4-6). traMADOL 2019-0 Yes [id number] 50mg Take 1 Un epifanio (ULTRAM) 50 6-18 tablet by ity of mg tablet 00:00: mouth [place] 00 every 6 Medical (six) Branch hours as needed for Pain (scale 4-6). traMADOL 2019-0 Yes [id number] 50mg Take 1 Un epifanio (ULTRAM) 50 6-18 tablet by ity of mg tablet 00:00: mouth [place] 00 every 6 Medical (six) Branch hours as needed for Pain (scale 4-6). traMADOL 2019-0 Yes [id number] 50mg Take 1 Un epifanio (ULTRAM) 50 6-18 tablet by ity of mg tablet 00:00: mouth [place] 00 every 6 Medical (six) Branch hours as needed for Pain (scale 4-6). traMADOL 2019-0 Yes [id number] 50mg Take 1 Un epifanio (ULTRAM) 50 6-18 tablet by ity of mg tablet 00:00: mouth [place] 00 every 6 Medical (six) Branch hours as needed for Pain (scale 4-6). traMADOL 2019-0 Yes [id number] 50mg Take 1 Un epifanio (ULTRAM) 50 6-18 tablet by ity of mg tablet 00:00: mouth [place] 00 every 6 Medical (six) Branch hours as needed for Pain (scale 4-6). traMADOL 2019-0 Yes [id number] 50mg Take 1 Un epifanio (ULTRAM) 50 6-18 tablet by ity of mg tablet 00:00: mouth [place] 00 every 6 Medical (six) Branch hours as needed for Pain (scale 4-6). traMADOL 2019-0 Yes [id number] 50mg Take 1 Un epifanio (ULTRAM) 50 6-18 tablet by ity of mg tablet 00:00: mouth [place] 00 every 6 Medical (six) Branch hours as needed for Pain (scale 4-6). traMADOL 2019-0 Yes [id number] 50mg Take 1 Un epifanio (ULTRAM) 50 6-18 tablet by ity of mg tablet 00:00: mouth [place] 00 every 6 Medical (six) Branch hours as needed for Pain (scale 4-6). traMADOL 2019-0 Yes [id number] 50mg Take 1 Un epifanio (ULTRAM) 50 6-18 tablet by ity of mg tablet 00:00: mouth [place] 00 every 6 Medical (six) Branch hours as needed for Pain (scale 4-6). traMADOL 2019-0 Yes [id number] 50mg Take 1 Un epifanio (ULTRAM) 50 6-18 tablet by ity of mg tablet 00:00: mouth [place] 00 every 6 Medical (six) Branch hours as needed for Pain (scale 4-6). traMADOL 2019-0 Yes [id number] 50mg Take 1 Un epifanio (ULTRAM) 50 6-18 tablet by ity of mg tablet 00:00: mouth [place] 00 every 6 Medical (six) Branch hours as needed for Pain (scale 4-6). traMADOL 2019-0 Yes [id number] 50mg Take 1 Un epifanio (ULTRAM) 50 6-18 tablet by ity of mg tablet 00:00: mouth [place] 00 every 6 Medical (six) Branch hours as needed for Pain (scale 4-6). traMADOL 2019-0 Yes [id number] 50mg Take 1 Un epifanio (ULTRAM) 50 6-18 tablet by ity of mg tablet 00:00: mouth [place] 00 every 6 Medical (six) Branch hours as needed for Pain (scale 4-6). traMADOL Yes [id number] 50mg Take 1 Un epifanio (ULTRAM) 50 6-18 tablet by ity of mg tablet 00:00: mouth [place] 00 every 6 Medical (six) Branch hours as needed for Pain (scale 4-6). traMADOL Yes [id number] 50mg Take 1 Un epifanio (ULTRAM) 50 6-18 tablet by ity of mg tablet 00:00: mouth [place] 00 every 6 Medical (six) Branch hours as needed for Pain (scale 4-6). traMADOL Yes [id number] 50mg Take 1 Un epifanio (ULTRAM) 50 6-18 tablet by ity of mg tablet 00:00: mouth [place] 00 every 6 Medical (six) Branch hours as needed for Pain (scale 4-6). traMADOL 2020- No [id number] 50mg Take 1 U nivers (ULTRAM) 50 6-18 05-19 tablet by it y of mg tablet 00:00: 00:00 mouth [place] 00 :00 every 6 Medical (six) Branch hours as needed for Pain (scale 4-6). traMADOL 2020- No [id number] 50mg Take 1 U nivers (ULTRAM) 50 6-18 05-19 tablet by it y of mg tablet 00:00: 00:00 mouth [place] 00 :00 every 6 Medical (six) Branch hours as needed for Pain (scale 4-6). folic acid Yes 1mg QD Take [address] [facility] (FOLVITE) 1 6-13 by mouth [facility] tablet 00:00: daily . Medic al 00 [place] folic acid 0 Yes 1mg QD Take [address] [facility] (FOLVITE) 1 6-13 by mouth [facility] MG tablet 00:00: daily . Medic al 00 [place] folic acid 0 Yes 1mg QD Take [address] [facility] (FOLVITE) 1 6-13 by mouth [facility] MG tablet 00:00: daily . Medic al [place] folic acid 0 Yes 1mg QD Take [address] [facility] (FOLVITE) 1 6-13 by mouth [facility] tablet 00:00: daily . Medic al 00 [place] folic acid 2018-0 Yes 1mg QD Take [address] [facility] (FOLVITE) 1 6-13 by mouth [facility] MG tablet 00:00: daily . Medic al 00 [place] folic acid 2018-0 Yes 1mg QD Take [address] [facility] (FOLVITE) 1 6-13 by mouth [facility] MG tablet 00:00: daily . Medic al 00 [place] folic acid 2018-0 Yes 1mg QD Take [address] [facility] [address] [facility] (FOLVITE) 1 6-13 by mouth [facility] MG tablet 00:00: daily . Medic al 00 [place] folic acid 2018-0 2023- No 1mg QD Take [address] [facility] (FOLVITE) 1 6-13 -28 by mouth [facility] MG tablet 00:00: 00:00 daily . Medi je[place]an 00 :00 [place] lactulose 2018-0 Yes TK [address] [facility] (CHRONULAC) 5-04 PO TID [facility] gram/15 00:00: Medical mL solution 00 [place] lactulose 2018-0 Yes TK [address] [facility] (CHRONULAC) 5-04 PO TID [facility] gram/15 00:00: Medical mL solution 00 [place] lactulose 2018-0 Yes TK [address] [facility] (CHRONULAC) 5-04 PO TID [facility] gram/15 00:00: Medical mL solution 00 [place] lactulose 2019-0 Yes TK [address] [facility] (CHRONULAC) 5-04 PO TID [facility] gram/15 00:00: Medical mL solution 00 [place] lactulose 2019-0 Yes TK [address] [facility] (CHRONULAC) 5-04 PO TID [facility] gram/15 00:00: Medical mL solution 00 [place] lactulose 2019-0 Yes TK [address] [facility] (CHRONULAC) 5-04 PO TID [facility] gram/15 00:00: Medical mL solution 00 [place] lactulose 2018-0 Yes TK [address] [facility] (CHRONULAC) 5-04 PO TID [facility] gram/15 00:00: Medical mL solution 00 [place] lactulose 2018-0 2023- No TK [address] [facility] (CHRONULAC) 5-04 -28 PO TID [facility] gram/15 00:00: 00:00 Medica l mL solution 00 :00 Center blood sugar 2019-0 Yes [id number] Use BID, [facility] diagnostic 4-23 DX E11.9 ity o f (ACCU-CHEK 00:00: (Brand [place] GUIDE) 00 upon Medical strip insurance Branch approval) Lancets 2019- Yes [id number] Use BID, U nivers Misc 4-23 DX E11.9 ity of 00:00: (Brand [place] 00 upon Medical insurance Branch approval) Blood-Gluco 2019- Yes [id number] Use BID, [facility] se Meter 4-23 DX E11.9 ity of (ACCU-CHEK 00:00: (Brand [place] GUIDE 00 upon Medical GLUCOSE insurance Branch METER) Misc approval) ACCU-CHEK GUIDE blood sugar 2019- Yes [id number] Use BID, [facility] diagnostic 4-23 DX E11.9 ity o f (ACCU-CHEK 00:00: (Brand [place] GUIDE) 00 upon Medical strip insurance Branch approval) Lancets 2019- Yes [id number] Use BID, U nivers Misc 4-23 DX E11.9 ity of 00:00: (Brand [place] 00 upon Medical insurance Branch approval) Blood-Gluco 2019- Yes [id number] Use BID, [facility] se Meter 4-23 DX E11.9 ity of (ACCU-CHEK 00:00: (Brand [place] GUIDE 00 upon Medical GLUCOSE insurance Branch METER) Misc approval) ACCU-CHEK GUIDE blood sugar 2019-0 Yes [id number] Use BID, [facility] diagnostic 4-23 DX E11.9 ity o f (ACCU-CHEK 00:00: (Brand [place] GUIDE) 00 upon Medical strip insurance Branch approval) Lancets 2019- Yes [id number] Use BID, U nivers Misc 4-23 DX E11.9 ity of 00:00: (Brand [place] 00 upon Medical insurance Branch approval) Blood-Gluco 2019- Yes [id number] Use BID, [facility] se Meter 4-23 DX E11.9 ity of (ACCU-CHEK 00:00: (Brand [place] GUIDE 00 upon Medical GLUCOSE insurance Branch METER) Misc approval) ACCU-CHEK GUIDE blood sugar 2019-0 Yes [id number] Use BID, [facility] diagnostic 4-23 DX E11.9 ity o f (ACCU-CHEK 00:00: (Brand [place] GUIDE) 00 upon Medical strip insurance Branch approval) Lancets 2019- Yes [id number] Use BID, U nivers Misc 4-23 DX E11.9 ity of 00:00: (Brand [place] 00 upon Medical insurance Branch approval) Blood-Gluco 2019- Yes [id number] Use BID, [facility] se Meter 4-23 DX E11.9 ity of (ACCU-CHEK 00:00: (Brand [place] GUIDE 00 upon Medical GLUCOSE insurance Branch METER) Misc approval) ACCU-CHEK GUIDE blood sugar 2019- Yes [id number] Use BID, [facility] diagnostic 4-23 DX E11.9 ity o f (ACCU-CHEK 00:00: (Brand [place] GUIDE) 00 upon Medical strip insurance Branch approval) Lancets 2019 Yes [id number] Use BID, U nivers Misc 4-23 DX E11.9 ity of 00:00: (Brand [place] 00 upon Medical insurance Branch approval) Blood-Gluco 2018- Yes [id number] Use BID, [facility] se Meter 4-23 DX E11.9 ity of (ACCU-CHEK 00:00: (Brand [place] GUIDE 00 upon Medical GLUCOSE insurance Branch METER) Misc approval) ACCU-CHEK GUIDE blood sugar 2018- Yes [id number] Use BID, [facility] diagnostic 4-23 DX E11.9 ity o f (ACCU-CHEK 00:00: (Brand [place] GUIDE) 00 upon Medical strip insurance Branch approval) Lancets 2019 Yes [id number] Use BID, U nivers Misc 4-23 DX E11.9 ity of 00:00: (Brand [place] 00 upon Medical insurance Branch approval) Blood-Gluco 2019- Yes [id number] Use BID, [facility] se Meter 4-23 DX E11.9 ity of (ACCU-CHEK 00:00: (Brand [place] GUIDE 00 upon Medical GLUCOSE insurance Branch METER) Misc approval) ACCU-CHEK GUIDE blood sugar 2019- Yes [id number] Use BID, [facility] diagnostic 4-23 DX E11.9 ity o f (ACCU-CHEK 00:00: (Brand [place] GUIDE) 00 upon Medical strip insurance Branch approval) Lancets 2019 Yes [id number] Use BID, U nivers Misc 4-23 DX E11.9 ity of 00:00: (Brand [place] 00 upon Medical insurance Branch approval) Blood-Gluco 2018- Yes [id number] Use BID, [facility] se Meter 4-23 DX E11.9 ity of (ACCU-CHEK 00:00: (Brand [place] GUIDE 00 upon Medical GLUCOSE insurance Branch METER) Misc approval) ACCU-CHEK GUIDE blood sugar 2018- Yes [id number] Use BID, [facility] diagnostic 4-23 DX E11.9 ity o f (ACCU-CHEK 00:00: (Brand [place] GUIDE) 00 upon Medical strip insurance Branch approval) Lancets 2019 Yes [id number] Use BID, U nivers Misc 4-23 DX E11.9 ity of 00:00: (Brand [place] 00 upon Medical insurance Branch approval) Blood-Gluco Yes [id number] Use BID, Univers se Meter 23 DX E11.9 ity of (ACCU-CHEK 00:00: (Brand [place] GUIDE 00 upon Medical GLUCOSE insurance Branch METER) Misc approval) ACCU-CHEK GUIDE blood sugar 2018- Yes [id number] Use BID, [facility] diagnostic 23 DX E11.9 ity o f (ACCU-CHEK 00:00: (Brand [place] GUIDE) 00 upon Medical strip insurance Branch approval) Lancets Yes [id number] Use BID, U nivers Misc 23 DX E11.9 ity of 00:00: (Brand [place] 00 upon Medical insurance Branch approval) Blood-Gluco 2018- Yes [id number] Use BID, [facility] se Meter 23 DX E11.9 ity of (ACCU-CHEK 00:00: (Brand [place] GUIDE 00 upon Medical GLUCOSE insurance Branch METER) Misc approval) ACCU-CHEK GUIDE blood sugar 2018- Yes [id number] Use BID, [facility] diagnostic 23 DX E11.9 ity o f (ACCU-CHEK 00:00: (Brand [place] GUIDE) 00 upon Medical strip insurance Branch approval) Lancets 2019 Yes [id number] Use BID, U nivers Misc 4-23 DX E11.9 ity of 00:00: (Brand [place] 00 upon Medical insurance Branch approval) Blood-Gluco 2018- Yes [id number] Use BID, Univers se Meter 4-23 DX E11.9 ity of (ACCU-CHEK 00:00: (Brand [place] GUIDE 00 upon Medical GLUCOSE insurance Branch METER) Misc approval) ACCU-CHEK GUIDE blood sugar 2019- Yes [id number] Use BID, [facility] diagnostic 4-23 DX E11.9 ity o f (ACCU-CHEK 00:00: (Brand [place] GUIDE) 00 upon Medical strip insurance Branch approval) Lancets 2019-0 Yes [id number] Use BID, U nivers Misc 4-23 DX E11.9 ity of 00:00: (Brand [place] 00 upon Medical insurance Branch approval) Blood-Gluco 2018- Yes [id number] Use BID, [facility] se Meter -23 DX E11.9 ity of (ACCU-CHEK 00:00: (Brand [place] GUIDE 00 upon Medical GLUCOSE insurance Branch METER) Misc approval) ACCU-CHEK GUIDE Blood-Gluco 2018- Yes [id number] Use BID, [facility] se Meter 23 DX E11.9 ity of (ACCU-CHEK 00:00: (Brand [place] GUIDE 00 upon Medical GLUCOSE insurance Branch METER) Misc approval) ACCU-CHEK GUIDE Blood-Gluco 2018- Yes [id number] Use BID, [facility] se Meter 23 DX E11.9 ity of (ACCU-CHEK 00:00: (Brand [place] GUIDE 00 upon Medical GLUCOSE insurance Branch METER) Misc approval) ACCU-CHEK GUIDE Blood-Gluco 2018- Yes [id number] Use BID, [facility] se Meter 23 DX E11.9 ity of (ACCU-CHEK 00:00: (Brand [place] GUIDE 00 upon Medical GLUCOSE insurance Branch METER) Misc approval) ACCU-CHEK GUIDE Blood-Gluco 2018- Yes [id number] Use BID, [facility] se Meter 23 DX E11.9 ity of (ACCU-CHEK 00:00: (Brand [place] GUIDE 00 upon Medical GLUCOSE insurance Branch METER) Misc approval) ACCU-CHEK GUIDE Blood-Gluco 2019- Yes [id number] Use BID, [facility] se Meter -23 DX E11.9 ity of (ACCU-CHEK 00:00: (Brand [place] GUIDE 00 upon Medical GLUCOSE insurance Branch METER) Misc approval) ACCU-CHEK GUIDE Blood-Gluco 2019-0 Yes [id number] Use BID, [facility] se Meter 4-23 DX E11.9 ity of (ACCU-CHEK 00:00: (Brand [place] GUIDE 00 upon Medical GLUCOSE insurance Branch METER) Misc approval) ACCU-CHEK GUIDE Blood-Gluco Yes [id number] Use BID, Univers se Meter -23 DX E11.9 ity of (ACCU-CHEK 00:00: (Brand [place] GUIDE 00 upon Medical GLUCOSE insurance Branch METER) Misc approval) ACCU-CHEK GUIDE Blood-Gluco Yes [id number] Use BID, [facility] se Meter 23 DX E11.9 ity of (ACCU-CHEK 00:00: (Brand [place] GUIDE 00 upon Medical GLUCOSE insurance Branch METER) Misc approval) ACCU-CHEK GUIDE blood sugar Yes [id number] Use BID, [facility] diagnostic -23 DX E11.9 ity o f (ACCU-CHEK 00:00: (Brand [place] GUIDE) 00 upon Medical strip insurance Branch approval) Lancets Yes [id number] Use BID, U nivers Misc 23 DX E11.9 ity of 00:00: (Brand [place] 00 upon Medical insurance Branch approval) Blood-Gluco Yes [id number] Use BID, Univers se Meter 09-18 DX E11.9 ity of (ACCU-CHEK 00:00: (Brand [place] GUIDE 00 upon Medical GLUCOSE insurance Branch METER) Misc approval) ACCU-CHEK GUIDE Blood-Gluco 2020- No [id number] Use BID, [facility] se Meter 23 05-19 DX E11.9 ity of (ACCU-CHEK 00:00: 00:00 ([place] 00 :00 upon Medical GLUCOSE insurance Branch METER) Misc approval) ACCU-CHEK GUIDE Blood-Gluco 2018-2020- No [id number] Use BID, [facility] se Meter 23 05-19 DX E11.9 ity of (ACCU-CHEK 00:00: 00:00 ([place] 00 :00 upon Medical GLUCOSE insurance Branch METER) Misc approval) ACCU-CHEK GUIDE lactulose Yes [id number] 15mL Take 15 mL [facility] 10 gram/15 4-08 by mouth 3 ity of mL solution 00:00: (three) [place] 00 times Medical daily. Branch lactulose Yes [id number] 15mL Take 15 mL [facility] 10 gram/15 4-08 by mouth 3 ity of mL solution 00:00: (three) [place] 00 times Medical daily. Branch lactulose 2019-0 Yes [id number] 15mL Take 15 mL [facility] 10 gram/15 4-08 by mouth 3 ity of mL solution 00:00: (three) [place] 00 times Medical daily. Branch lactulose 2019-0 Yes [id number] 15mL Take 15 mL [facility] 10 gram/15 4-08 by mouth 3 ity of mL solution 00:00: (three) [place] 00 times Medical daily. Branch lactulose 2019-0 Yes [id number] 15mL Take 15 mL [facility] 10 gram/15 4-08 by mouth 3 ity of mL solution 00:00: (three) [place] 00 times Medical daily. Branch lactulose 2019-0 Yes [id number] 15mL Take 15 mL [facility] 10 gram/15 4-08 by mouth 3 ity of mL solution 00:00: (three) [place] 00 times Medical daily. Branch lactulose 2019-0 Yes [id number] 15mL Take 15 mL [facility] 10 gram/15 4-08 by mouth 3 ity of mL solution 00:00: (three) [place] 00 times Medical daily. Branch lactulose 2019-0 Yes [id number] 15mL Take 15 mL [facility] 10 gram/15 4-08 by mouth 3 ity of mL solution 00:00: (three) [place] 00 times Medical daily. Branch lactulose 2019-0 Yes [id number] 15mL Take 15 mL [facility] 10 gram/15 4-08 by mouth 3 ity of mL solution 00:00: (three) [place] 00 times Medical daily. Branch lactulose 2019-0 Yes [id number] 15mL Take 15 mL [facility] 10 gram/15 4-08 by mouth 3 ity of mL solution 00:00: (three) [place] 00 times Medical daily. Branch lactulose 2019-0 Yes [id number] 15mL Take 15 mL [facility] 10 gram/15 4-08 by mouth 3 ity of mL solution 00:00: (three) [place] 00 times Medical daily. Branch lactulose 2019-0 Yes [id number] 15mL Take 15 mL [facility] 10 gram/15 4-08 by mouth 3 ity of mL solution 00:00: (three) [place] 00 times Medical daily. Branch lactulose 2019-0 Yes [id number] 15mL Take 15 mL [facility] 10 gram/15 4-08 by mouth 3 ity of mL solution 00:00: (three) [place] 00 times Medical daily. Branch furosemide 2019-0 Yes [id number] 40mg Take 1 [facility] 40 mg 2-12 tablet by ity of tablet 00:00: mouth [place] 00 every Medical morning Branch and evening. furosemide 2019-0 Yes [id number] 40mg Take 1 [facility] 40 mg 2-12 tablet by [facility]y of tablet 00:00: mouth [place] 00 every Medical morning Branch and evening. furosemide 2019-0 Yes [id number] 40mg Take 1 [facility] 40 mg 2-12 tablet by ity of tablet 00:00: mouth [place] 00 every Medical morning Branch and evening. furosemide 2019-0 Yes [id number] 40mg Take 1 [facility] 40 mg 2-12 tablet by ity of tablet 00:00: mouth [place] 00 every Medical morning Branch and evening. furosemide 2019-0 Yes [id number] 40mg Take 1 [facility] 40 mg 2-12 tablet by ity of tablet 00:00: mouth [place] 00 every Medical morning Branch and evening. furosemide 2019-0 Yes [id number] 40mg Take 1 [facility] 40 mg 2-12 tablet by ity of tablet 00:00: mouth [place] 00 every Medical morning Branch and evening. furosemide 2019-0 Yes [id number] 40mg Take 1 [facility] 40 mg 2-12 tablet by ity of tablet 00:00: mouth [place] 00 every Medical morning Branch and evening. furosemide 2019-0 Yes [id number] 40mg Take 1 [facility] 40 mg 2-12 tablet by ity of tablet 00:00: mouth [place] 00 every Medical morning Branch and evening. furosemide 2019-0 Yes [id number] 40mg Take 1 [facility] 40 mg 2-12 tablet by ity of tablet 00:00: mouth [place] 00 every Medical morning Branch and evening. furosemide 2019-0 Yes [id number] 40mg Take 1 [facility] 40 mg 2-12 tablet by [facility]y of tablet 00:00: mouth [place] 00 every Medical morning Branch and evening. furosemide 2019-0 Yes [id number] 40mg Take 1 [facility] 40 mg 2-12 tablet by ity of tablet 00:00: mouth [place] 00 every Medical morning Branch and evening. furosemide 2019-0 Yes [id number] 40mg Take 1 [facility] 40 mg 2-12 tablet by ity of tablet 00:00: mouth [place] 00 every Medical morning Branch and evening. furosemide 2019-0 Yes [id number] 40mg Take 1 [facility] 40 mg 2-12 tablet by ity of tablet 00:00: mouth [place] 00 every Medical morning Branch and evening. metFORMIN 2019-0 1- No 500mg Take [address] [facility] [address] [facility] (GLUCOPHAGE 2-12 04-06 [facility] ) 500 MG 00:00: 00:00 mouth 2 Medic al tablet 00 :00 (two) Center times daily with breakfast and dinner . lisinopril 2019-0 Yes [id number] 20mg Take 1 [facility] 20 mg 2-06 tablet by ity of tablet 00:00: mouth [place] 00 daily. Medical Branch lisinopril 2019-0 Yes [id number] 20mg Take 1 [facility] 20 mg 2-06 tablet by [facility]y of tablet 00:00: mouth [place] 00 daily. Medical Branch lisinopril 2018-0 Yes [id number] 20mg Take 1 [facility] 20 mg 2-06 tablet by [facility]y of tablet 00:00: mouth [place] 00 daily. Medical Branch lisinopril 2019-0 Yes [id number] 20mg Take 1 [facility] 20 mg 2-06 tablet by [facility] of tablet 00:00: mouth [place] 00 daily. Medical Branch lisinopril 2019-0 Yes [id number] 20mg Take 1 [facility] 20 mg 2-06 tablet by [facility]y of tablet 00:00: mouth [place] 00 daily. Medical Branch lisinopril 2019-0 Yes [id number] 20mg Take 1 [facility] 20 mg 2-06 tablet by [facility]y of tablet 00:00: mouth [place] 00 daily. Medical Branch lisinopril 2019-0 Yes [id number] 20mg Take 1 [facility] 20 mg 2-06 tablet by [facility]y of tablet 00:00: mouth [place] 00 daily. Medical Branch lisinopril 2019-0 Yes [id number] 20mg Take 1 [facility] 20 mg 2-06 tablet by [facility]y of tablet 00:00: mouth [place] 00 daily. Medical Branch lisinopril 2019-0 Yes [id number] 20mg Take 1 [facility] 20 mg 2-06 tablet by [facility]y of tablet 00:00: mouth [place] 00 daily. Medical Branch lisinopril 2019-0 Yes [id number] 20mg Take 1 [facility] 20 mg 2-06 tablet by ity of tablet 00:00: mouth [place] 00 daily. Medical Branch lisinopril 2019-0 Yes [id number] 20mg Take 1 [facility] 20 mg 2-06 tablet by ity of tablet 00:00: mouth [place] 00 daily. [facility] lisinopril 2019-0 Yes [id number] 20mg Take 1 [facility] 20 mg 2-06 tablet by ity of tablet 00:00: mouth [place] 00 daily. [facility] lisinopril 2019-0 Yes [id number] 20mg Take 1 [facility] 20 mg 2-06 tablet by ity of tablet 00:00: mouth [place] 00 daily. [facility] carvedilol 2019-0 Yes 6.25mg Take 6.[address] [facility] (COREG) 2-06 [facility] 3.125 MG 00:00: mouth 2 Medica l tablet 00 (two) Center times daily with breakfast and dinner . lisinopril 2018-0 Yes 20mg QD Take [address] [facility] (PRINIVIL,Z 2-06 by mouth [facility] ESTRIL) 20 00:00: daily . Medi jeevan MG tablet 00 [place] carvedilol Yes 6.25mg Take 6.[address] [facility] (COREG) 2-06 [facility] 3.125 MG 00:00: mouth 2 Medica l tablet 00 (two) Center times daily with breakfast and dinner . lisinopril 2018-0 Yes 20mg QD Take [address] [facility] (PRINIVIL,Z 2-06 by mouth [facility] ESTRIL) 20 00:00: daily . Medi jeevan MG tablet 00 [place] carvedilol 0 Yes 6.25mg Take 6.[address] [facility] (COREG) 2-06 [facility] 3.125 MG 00:00: mouth 2 Medica l tablet 00 (two) Center times daily with breakfast and dinner . lisinopril 2019-0 Yes 20mg QD Take [address] (PRINIVIL,Z 2-06 by mouth [facility] ESTRIL) 20 00:00: daily . Medi jeevan MG tablet 00 [place] carvedilol 0 Yes 6.25mg Take 6.[address] [facility] (COREG) 2-06 [facility] 3.125 MG 00:00: mouth 2 Medica l tablet 00 (two) Center times daily with breakfast and dinner . lisinopril 2019-0 Yes 20mg QD Take [address] (PRINIVIL,Z 2-06 by mouth [facility] ESTRIL) 20 00:00: daily . Medi jeevan MG tablet 00 [place] carvedilol Yes 6.25mg Take 6.[address] [facility] (COREG) 2-06 [facility] 3.125 MG 00:00: mouth 2 Medica l tablet 00 (two) Center times daily with breakfast and dinner . lisinopril Yes 20mg QD Take [address] (PRINIVIL,Z 2-06 by mouth [facility] ESTRIL) 20 00:00: daily . Medi jeevan MG tablet 00 [place] carvedilol Yes 6.25mg Take 6.[address] [facility] (COREG) 2-06 [facility] 3.125 MG 00:00: mouth 2 Medica l tablet 00 (two) Center times daily with breakfast and dinner . lisinopril Yes 20mg QD Take [address] (PRINIVIL,Z 2-06 by mouth [facility] ESTRIL) 20 00:00: daily . Medi jeevan MG tablet 00 [place] carvedilol Yes 6.25mg Take 6.[address] [facility] (COREG) 2-06 [facility] 3.125 MG 00:00: mouth 2 Medica l tablet 00 (two) Center times daily with breakfast and dinner . lisinopril Yes 20mg QD Take [address] (PRINIVIL,Z 2-06 by mouth [facility] ESTRIL) 20 00:00: daily . Medi jeevan MG tablet 00 [place] carvedilol 2022- No 6.25mg Take 6.[address] [facility] (COREG) 2-06 03-28 [facility] 3.125 MG 00:00: 00:00 mouth 2 Medic al tablet 00 :00 (two) Center times daily with breakfast and dinner . lisinopril 2022- No 20mg QD Take [address] [facility] (PRINIVIL,Z 2-06 03-28 by mouth Ismael es ESTRIL) 20 00:00: 00:00 daily . Med ical MG tablet 00 :00 Center pantoprazol Yes 40mg QD Take [address] [facility] 1-09 [facility] (PROTONIX) 00:00: daily . Medi jeevan 40 MG 00 [place] tablet pantoprazol Yes 40mg QD Take 40 [...] jeevan 40 MG 00 Center tablet pantoprazol 2018-3- No 40mg QD Take [address] [facility] 1-09 - by [facility] (PROTONIX) 00:00: 00:00 daily . Med ical 40 MG 00 :00 Center tablet hydrOXYzine 2017-05 Yes 50mg Take [address] [facility] (ATARAX) 50 1-14 by mouth [facility] MG tablet 00:00: as needed Med ical 00 . [place] hydrOXYzine 2017-05 Yes 50mg Take [address] [facility] (ATARAX) 50 1-14 by mouth [facility] MG tablet 00:00: as needed Med ical 00 . [place] hydrOXYzine 2017-05 Yes 50mg Take [address] [facility] (ATARAX) 50 1-14 by mouth [facility] MG tablet 00:00: as needed Med ical 00 . [place] hydrOXYzine 2017-05 Yes 50mg Take [address] [facility] (ATARAX) 50 1-14 by mouth [facility] MG tablet 00:00: as needed Med ical 00 . [place] hydrOXYzine 2017-05 Yes 50mg Take [address] [facility] (ATARAX) 50 1-14 by mouth [facility] MG tablet 00:00: as needed Med ical 00 . [place] hydrOXYzine 2017-05 Yes 50mg Take [address] [facility] (ATARAX) 50 1-14 by mouth [facility] MG tablet 00:00: as needed Med ical 00 . [place] hydrOXYzine 2017-05 Yes 50mg Take [address] [facility] (ATARAX) 50 1-14 by mouth [facility] MG tablet 00:00: as needed Med ical 00 . [place] hydrOXYzine 2017-05- No 50mg Take [address] [facility] (ATARAX) 50 1-14 03-28 by mouth Ismael es MG tablet 00:00: 00:00 as needed Me dical 00 :00 . [place] traMADol Yes Recurrent 50mg Take 1 [facility] [...] 6 hours as needed for Pain. traMADol 0 Yes Recurrent 50mg Take 1 [facility] (ULTRAM) 50 7-19 umbilical tablet by Health mg tablet 00:00: hernia mouth 00 every 6 hours as needed for Pain. traMADol 0 Yes Recurrent 50mg Take 1 [...] Immunizations Ordered Filled Immunization Date Status Comments [facility] e Immunization Name Name SARS-COV-2 COVID-19 2021-02-05 Completed Unive rsity of PFIZER VACCINE 00:00:00 [facility] SARS-COV-2 COVID-19 2021-02-05 Completed Unive rsity of PFIZER VACCINE 00:00:00 [facility] SARS-COV-2 COVID-19 2021-02-05 Completed Unive rsity of PFIZER VACCINE 00:00:00 [facility] SARS-COV-2 COVID-19 2021-02-05 Completed Unive rsity of PFIZER VACCINE 00:00:00 [facility] SARS-COV-2 COVID-19 2021-02-05 Completed Unive rsity of PFIZER VACCINE 00:00:00 [facility] SARS-COV-2 COVID-19 2021-02-05 Completed Unive rsity of PFIZER VACCINE 00:00:00 [facility] SARS-COV-2 COVID-19 2021-02-05 Completed Unive rsity of PFIZER VACCINE 00:00:00 [facility] Covid-19 Vaccine 2020-07-[address] [facility] Antibiotic Free PF 00:00:00 [facility] IM ([id number]) Influenza 2020-06-[address] [facility] Antibiotic Free PF 00:00:00 [facility] IM ([id number]) Influenza 2020-06-[address] [facility] Antibiotic Free PF 00:00:00 [facility] IM ([id number]) Influenza 2020-06-[address] [facility] Antibiotic Free PF 00:00:00 [facility] IM ([id number]) Influenza 2020-06-[address] [facility] Antibiotic Free PF 00:00:00 [facility] IM ([id number]) Influenza 2020-06-[address] [facility] Antibiotic Free PF 00:00:00 [facility] ([id number]) Influenza 2020-06-[address] [facility] Antibiotic Free PF 00:00:00 [facility] IM ([id number]) Influenza 2020-06-[address] [facility] Antibiotic Free PF 00:00:00 [facility] IM ([id number]) Pneumococcal 2018-10-[address] [facility] Conjugate (Prevnar) 00:00:00 [facility] 13-Valent Pneumococcal 2018-10-[address] [facility] Conjugate (Prevnar) 00:00:00 [facility] 13-[facility]ent Pneumococcal 2018-10-[address] [facility] Conjugate (Prevnar) 00:00:00 [facility] 13-Valent Pneumococcal 2018-10-[address] [facility] Conjugate (Prevnar) 00:00:00 [facility] Pneumococcal 2018-10-[address] [facility] Conjugate (Prevnar) 00:00:00 [facility] Pneumococcal 2018-10-[address] [facility] Conjugate (Prevnar) 00:00:00 [facility] Pneumococcal 2018-10-[address] [facility] Conjugate (Prevnar) 00:00:00 [facility] Pneumococcal 2018-10-[address] [facility] Conjugate (Prevnar) 00:00:00 [facility] 13-[facility]ent Influenza Virus 2018-04-11 Completed Universit y of Vaccine Quad IM 3+ 00:00:00 [facility] Influenza Virus 2018-04-11 Completed Universit y of Vaccine Quad IM 3+ 00:00:00 [facility] Influenza Virus 2018-04-11 Completed Universit y of Vaccine Quad IM 3+ 00:00:00 [facility] Influenza Virus 2018-04-11 Completed Universit y of Vaccine Quad IM 3+ 00:00:00 [facility] Influenza Virus 2018-04-11 Completed Universit y of Vaccine Quad IM 3+ 00:00:00 [facility] Influenza Virus 2018-04-11 Completed Universit y of Vaccine Quad IM 3+ 00:00:00 [facility] Influenza Virus 2018-04-11 Completed Universit y of Vaccine Quad IM 3+ 00:00:00 [facility] Influenza Virus 2018-04-11 Completed Universit y of Vaccine Quad IM 3+ 00:00:00 [facility] Influenza Virus 2018-04-11 Completed Universit y of Vaccine Quad IM 3+ 00:00:00 [facility] Influenza Virus 2018-04-11 Completed Universit y of Vaccine Quad IM 3+ 00:00:00 [facility] Influenza Virus 2018-04-11 Completed Universit y of Vaccine Quad IM 3+ 00:00:00 [facility] Influenza Virus 2018-04-11 Completed Universit y of Vaccine Quad IM 3+ 00:00:00 [facility] Influenza Virus 2018-04-11 Completed Universit y of Vaccine Quad IM 3+ 00:00:00 [facility] Influenza Virus 2018-04-11 Completed Universit y of Vaccine Quad IM 3+ 00:00:00 [facility] Influenza Virus 2018-04-11 Completed Universit y of Vaccine Quad IM 3+ 00:00:00 [facility] Influenza Virus 2018-04-11 Completed Universit y of Vaccine Quad IM 3+ 00:00:00 [facility] Influenza Virus 2018-04-11 Completed Universit y of Vaccine Quad IM 3+ 00:00:00 [facility] Influenza Virus 2018-04-11 Completed Universit y of Vaccine Quad IM 3+ 00:00:00 [facility] Influenza Virus 2018-04-11 Completed Universit y of Vaccine Quad IM 3+ 00:00:00 [facility] Influenza Virus 2018-04-11 Completed Universit y of Vaccine Quad IM 3+ 00:00:00 [facility] Influenza Virus 2018-04-11 Completed Universit y of Vaccine Quad IM 3+ 00:00:00 [facility] Influenza Virus 2018-04-11 Completed Universit y of Vaccine Quad IM 3+ 00:00:00 [facility] Influenza Virus 2018-04-11 Completed Universit y of Vaccine Quad IM 3+ 00:00:00 [facility] Influenza Virus 2018-04-11 Completed Universit y of Vaccine Quad IM 3+ 00:00:00 [facility] Influenza Virus 2018-04-11 Completed Universit y of Vaccine Quad IM 3+ 00:00:00 [facility] Influenza Virus 2018-04-11 Completed Universit y of Vaccine Quad IM 3+ 00:00:00 [facility] Influenza Virus 2018-04-11 Completed Universit y of Vaccine Quad IM 3+ 00:00:00 [facility] Influenza Virus 2018-04-11 Completed Universit y of Vaccine Quad IM 3+ 00:00:00 [facility] Influenza Virus 2018-04-11 Completed Universit y of Vaccine Quad IM 3+ 00:00:00 [facility] Influenza Virus 2018-04-11 Completed Universit y of Vaccine Quad IM 3+ 00:00:00 [facility] Influenza Virus 2018-04-11 Completed Universit y of Vaccine Quad IM 3+ 00:00:00 [facility] Influenza Four-QIV 2018-04-[address] [facility] PF 3+YR IM 00:00:00 [facility] Influenza Four-QIV 2018-04-[address] [facility] PF 3+YR IM 00:00:00 [facility] Influenza Four-QIV 2018-04-[address] [facility] PF 3+YR IM 00:00:00 [facility] Influenza Four-QIV 2018-04-[address] [facility] PF 3+YR IM 00:00:00 [facility] Influenza Four-QIV 2018-04-[address] [facility] PF 3+YR IM 00:00:00 [facility] Influenza Four-QIV 2018-04-[address] [facility] PF 3+YR IM 00:00:00 [facility] Influenza Four-QIV 2018-04-[address] [facility] PF 3+YR IM 00:00:00 [facility] Influenza Four-QIV 2018-04-[address] [facility] PF 3+YR IM 00:00:00 [facility] Td 2016-09-18 Completed University of 00:00:00 [facility] Td 2016-09-18 Completed University of 00:00:00 [place] [...] Branch Td 2016-09-18 Completed University of 00:00:00 [place] [facility] Td 2016-09-18 Completed University of 00:00:00 [facility] Branch Td 2016-09-18 Completed University of 00:00:00 [place] [facility] Td 7+ years, 2016-09-18 Completed [...] 00:00:00 WEIGHT 2019-12-24 103 kg 00:00:00 HEIGHT 2023-01-12 167.6 cm 10:39:00 WEIGHT 2023-01-12 103.284 kg 10:39:00 HEIGHT 2022-12-15 167.6 cm 09:16:00 WEIGHT 2022-12-15 101.288 kg 09:16:00 HEIGHT 2022-12-06 167.6 cm 11:55:00 WEIGHT 2022-12-06 101.606 kg 11:55:00 HEIGHT 2022-12-15 167.6 cm 09:16:00 WEIGHT 2022-12-15 101.288 kg 09:16:00 HEIGHT 2022-12-06 167.6 cm 11:55:00 WEIGHT 2022-12-06 101.606 kg 11:55:00 HEIGHT 2022-12-01 167.6 cm 11:12:00 WEIGHT 2022-12-01 100.88 kg 11:12:00 WEIGHT 2022-11-24 96.9 kg 06:00:00 WEIGHT 2022-11-23 96.9 kg 20:00:00 WEIGHT 2022-11-23 97.6 kg 06:00:00 WEIGHT 2022-11-22 97.569 kg 05:38:00 WEIGHT 2022-11-21 97 kg 06:00:00 WEIGHT 2022-11-20 97.7 kg 06:00:00 WEIGHT 2022-11-18 100 kg 06:00:00 HEIGHT 2022-11-16 167.6 cm 22:00:00 WEIGHT 2022-11-24 96.9 kg 06:00:00 WEIGHT 2022-11-23 96.9 kg 20:00:00 WEIGHT 2022-11-23 97.6 kg 06:00:00 WEIGHT 2022-11-22 97.569 kg 05:38:00 WEIGHT 2022-11-21 97 kg 06:00:00 WEIGHT 2022-11-20 97.7 kg 06:00:00 WEIGHT 2022-11-18 100 kg 06:00:00 HEIGHT 2022-11-16 167.6 cm 22:00:00 HEIGHT 2022-10-17 167.6 cm 11:13:00 WEIGHT 2022-10-17 100.29 kg 11:13:00 HEIGHT 2022-10-06 167.6 cm 11:18:00 WEIGHT 2022-10-06 101.243 kg 11:18:00 WEIGHT 2022-09-29 99.791 kg 10:51:00 WEIGHT 2022-09-27 101.8 kg 05:00:00 WEIGHT 2022-09-26 100.9 kg 06:00:00 WEIGHT 2022-09-25 101.606 kg 00:43:00 WEIGHT 2022-09-24 102 kg 06:00:00 WEIGHT 2022-09-21 101.7 kg 06:00:00 HEIGHT 2022-09-18 167.6 cm 22:43:00 WEIGHT 2022-09-18 104.01 kg 22:43:00 WEIGHT 2022-09-18 104.01 kg 17:09:00 WEIGHT 2022-09-27 101.8 kg 05:00:00 WEIGHT 2022-09-26 100.9 kg 06:00:00 WEIGHT 2022-09-25 101.606 kg 00:43:00 WEIGHT 2022-09-24 102 kg 06:00:00 WEIGHT 2022-09-21 101.7 kg 06:00:00 HEIGHT 2022-09-18 167.6 cm 22:43:00 WEIGHT 2022-09-18 104.01 kg 22:43:00 WEIGHT 2022-09-18 104.01 kg 17:09:00 HEIGHT 2022-09-15 167.6 cm 10:37:00 WEIGHT 2022-09-15 104.237 kg 10:37:00 HEIGHT 2022-09-15 167.6 cm 10:37:00 WEIGHT 2022-09-15 104.237 kg 10:37:00 HEIGHT 2022-09-09 167.6 cm 10:28:00 WEIGHT 2022-09-09 103.42 kg 10:28:00 WEIGHT 2022-09-09 103.828 kg 06:00:00 WEIGHT 2022-09-08 104.418 kg 06:00:00 WEIGHT 2022-09-07 104.282 kg 07:00:00 WEIGHT 2022-09-06 103.738 kg 07:00:00 HEIGHT 2022-09-09 167.6 cm 10:28:00 WEIGHT 2022-09-09 103.42 kg 10:28:00 WEIGHT 2022-09-09 103.828 kg 06:00:00 WEIGHT 2022-09-08 104.418 kg 06:00:00 WEIGHT 2022-09-07 104.282 kg 07:00:00 WEIGHT 2022-09-06 103.738 kg 07:00:00 HEIGHT 2022-09-01 167.6 cm 11:02:00 WEIGHT 2022-09-01 109.816 kg 11:02:00 HEIGHT 2022-09-01 167.6 cm 11:02:00 WEIGHT 2022-09-01 109.816 kg 11:02:00 HEIGHT 2022-08-25 167.6 cm 10:05:00 WEIGHT 2022-08-25 113.581 kg 10:05:00 HEIGHT 2022-08-25 167.6 cm 10:05:00 WEIGHT 2022-08-25 113.581 kg 10:05:00 WEIGHT 2022-08-23 114.851 kg 07:30:00 WEIGHT 2022-08-22 114.805 kg 14:00:00 WEIGHT 2022-08-17 110.315 kg 12:00:00 WEIGHT 2022-08-23 114.851 kg 07:30:00 WEIGHT 2022-08-22 114.805 kg 14:00:00 WEIGHT 2022-08-17 110.315 kg 12:00:00 HEIGHT 2022-06-01 167.6 cm 09:55:00 WEIGHT 2022-06-01 110.859 kg 09:55:00 HEIGHT 2022-06-01 167.6 cm 09:55:00 WEIGHT 2022-06-01 110.859 kg 09:55:00 Systolic blood 2021-12-26 150 mm[Hg] University of pressure 20:38:00 [facility] Diastolic blood 2021-12-26 79 mm[Hg] [facility] o f pressure 20:38:00 [facility] Heart rate 2021-12-26 104 /min University of 20:38:00 [facility] Body temperature 2021-12-26 38.06 Corrina University of 20:38:00 [facility] Respiratory rate 2021-12-26 18 /min University of 20:38:00 [facility] Body height 2021-12-26 167.6 cm University of 20:38:00 [facility] Body weight 2021-12-26 108.863 kg University of 20:38:00 [facility] BMI 2021-12-26 38.74 kg/m2 University of 20:38:00 [facility] Oxygen saturation 2021-12-26 99 /min [facility] Arterial blood 20:38:00 [facility] Pulse oximetry Branch HEIGHT 2021-12-22 167.6 cm 10:36:00 WEIGHT 2021-12-22 [...] [facility] Diastolic blood 2021-04-01 65 mm[Hg] [facility] o f pressure 20:00:00 [facility] Heart rate 2021-04-01 57 /min University 20:00:00 [facility] Respiratory rate 2021-04-01 16 /min University 20:00:00 [facility] Oxygen saturation 2021-04-01 100 /min Simultaneous [facility] in Arterial blood 20:00:00 filing. User may [facility] by Pulse oximetry not have seen Branch previous data. Body temperature 2021-04-01 36.22 Corrina University of 18:07:00 [facility] Body height 2021-04-01 166 cm University of 18:07:00 [facility] Body weight 2021-04-01 104.327 kg University of 18:07:00 [facility] BMI 2021-04-01 37.86 kg/m2 University 18:07:00 [facility] HEIGHT 2021-03-12 167.6 cm 07:20:00 WEIGHT 2021-03-12 [...] [facility] Diastolic blood 2020-08-19 77 mm[Hg] University o f pressure 14:00:00 [facility] Heart rate 2020-08-19 71 /min University of 14:00:00 [facility] Respiratory rate 2020-08-19 18 /min University of 14:00:00 [facility] Oxygen saturation 2020-08-19 99 /min [facility] in Arterial blood 14:00:00 [facility] by Pulse oximetry [place] Body temperature 2020-08-19 36.94 Corrina University of 12:32:00 [facility] Body weight 2020-08-19 106.142 kg University of 12:32:00 [facility] BMI 2020-08-19 37.77 kg/m2 University of 12:32:00 [facility] Systolic blood 2020-08-19 132 mm[Hg] University of pressure 14:00:00 [facility] Diastolic blood 2020-08-19 77 mm[Hg] University o f pressure 14:00:00 [facility] Heart rate 2020-08-19 71 /min University of 14:00:00 [facility] Respiratory rate 2020-08-19 18 /min University of 14:00:00 [facility] Branch Oxygen saturation 2020-08-19 99 /min University of in Arterial blood 14:00:00 [facility] jeevan by Pulse oximetry Branch Body temperature 2020-08-19 36.94 Corrina University of 12:32:00 [facility] Body weight 2020-08-19 106.142 kg University of 12:32:00 [facility] BMI 2020-08-19 37.77 kg/m2 University of 12:32:00 [facility] Systolic blood 2020-06-26 120 mm[Hg] University of pressure 03:00:00 [facility] Branch Diastolic blood 2020-06-26 103 mm[Hg] University o f pressure 03:00:00 [facility] Heart rate 2020-06-26 83 /min University of 03:00:00 [facility] Respiratory rate 2020-06-26 20 /min University of 03:00:00 [facility] Oxygen saturation 2020-06-26 99 /min University of in Arterial blood 03:00:00 [facility] jeevan by Pulse oximetry Branch Body temperature 2020-06-25 36.44 Corrina University of 23:03:00 [facility] Body height 2020-06-25 167.6 cm University of 23:03:00 [facility] Body weight 2020-06-25 105.235 kg University of 23:03:00 [facility] BMI 2020-06-25 37.45 kg/m2 University of 23:03:00 [facility] Systolic blood 2020-06-26 120 mm[Hg] University of pressure 03:00:00 [facility] Diastolic blood 2020-06-26 103 mm[Hg] University o f pressure 03:00:00 [facility] Heart rate 2020-06-26 83 /min University of 03:00:00 [facility] Branch Respiratory rate 2020-06-26 20 /min University of 03:00:00 [facility] Oxygen saturation 2020-06-26 99 /min University of in Arterial blood 03:00:00 [facility] jeevan by Pulse oximetry Branch Body temperature 2020-06-25 36.44 Corrina University of 23:03:00 [facility] Body height 2020-06-25 167.6 cm University of 23:03:00 [facility] Body weight 2020-06-25 105.235 kg University of 23:03:00 [facility] BMI 2020-06-25 37.45 kg/m2 [facility] of 23:03:00 [facility] HEIGHT 2020-03-13 167.6 cm 10:38:00 WEIGHT 2020-03-13 108.41 kg 10:38:00 HEIGHT 2020-03-13 167.6 cm 10:38:00 WEIGHT 2020-03-13 108.41 kg 10:38:00 HEIGHT 2019-12-24 167.6 cm 00:00:00 WEIGHT 2019-12-24 103 kg 00:00:00 Systolic blood 2019-01-21 131 mm[Hg] University of pressure 21:03:00 [facility] Diastolic blood 2019-01-21 79 mm[Hg] University o f pressure 21:03:00 [facility] Heart rate 2019-01-21 73 /min University 21:03:00 [facility] Body temperature 2019-01-21 37.06 Corrina University 21:03:00 [facility] Respiratory rate 2019-01-21 18 /min University 21:03:00 [facility] Body weight 2019-01-21 103.103 kg University of 21:03:00 [facility] BMI 2019-01-21 36.69 kg/m2 University of 21:03:00 [facility] Oxygen saturation 2019-01-21 98 /min University of in Arterial blood 21:03:00 [facility] by Pulse oximetry Branch Systolic blood 2019-01-21 131 mm[Hg] University of pressure 21:03:00 [facility] Diastolic blood 2019-01-21 79 mm[Hg] University o f pressure 21:03:00 [facility] Heart rate 2019-01-21 73 /min University of 21:03:00 [facility] Body temperature 2019-01-21 37.06 Corrina University of 21:03:00 [facility] Respiratory rate 2019-01-21 18 /min University of 21:03:00 [facility] Body weight 2019-01-21 103.103 kg University of 21:03:00 [facility] BMI 2019-01-21 36.69 kg/m2 University of 21:03:00 [facility] Oxygen saturation 2019-01-21 98 /min University of in Arterial blood 21:03:00 [facility] by Pulse oximetry Branch Systolic blood 2022-09-15 125 mm[Hg] [facility] pressure 10:37:00 [facility] Diastolic blood 2022-09-15 75 mm[Hg] [facility] pressure 10:37:00 [facility] Heart rate 2022-09-15 82 /min [facility] 10:37:00 [facility] Body temperature 2022-09-[address] [facility] 10:37:00 [facility] Respiratory rate 2022-09-15 18 /min [facility] 10:37:00 [facility] Body height 2022-09-[address] [facility] 10:37:00 [facility] Body weight 2022-09-[address] [facility] 10:37:00 [facility] BMI 2022-09-15 37.09 kg/m2 [facility] 10:37:00 [facility] Oxygen saturation 2022-09-15 99 /min [facility] Arterial blood 10:37:00 [facility] nter by Pulse oximetry Systolic blood 2022-08-02 118 mm[Hg] [facility] 16:38:00 Hospital Diastolic blood 2022-08-02 62 mm[Hg] [facility] pressure 16:38:00 [facility] Heart rate 2022-08-02 65 /min [facility] 16:38:00 [facility] Respiratory rate 2022-08-02 18 /min [facility] 16:38:00 [facility] Body height 2022-08-02 167.6 cm [facility] 16:38:00 [facility] Body weight 2022-08-02 112.492 kg [facility] 16:38:00 [facility] BMI 2022-08-02 40.03 kg/m2 [facility] 16:38:00 Hospital Systolic blood 2022-06-01 135 mm[Hg] [facility] pressure 09:55:00 [facility] Diastolic blood 2022-06-01 77 mm[Hg] [facility] pressure 09:55:00 [facility] Heart rate 2022-06-01 66 /min [facility] 09:55:00 [facility] Body temperature 2022-06-[address] [facility] 09:55:00 [facility] Respiratory rate 2022-06-01 18 /min [facility] 09:55:00 [facility] Body height 2022-06-[address] [facility] 09:55:00 [facility] Body weight 2022-06-[address] [facility] 09:55:00 [facility] BMI 2022-06-01 39.45 kg/m2 [facility] [...] 36.[address] [facility] 10:36:00 [facility] Respiratory rate 2021-12-22 18 /min [facility] 10:36:00 [facility] Body height 2021-12-[address] [facility] 10:36:00 [facility] Body weight 2021-12-[address] [facility] 10:36:00 [facility] BMI 2021-12-22 39.92 kg/m2 [facility] 10:36:00 [facility] Oxygen saturation 2021-12-22 98 /min [facility] Arterial blood 10:36:00 Medical Ce [facility]ter by Pulse oximetry Systolic blood 2021-03-12 107 mm[Hg] [facility] pressure 14:30:00 [facility] Center Diastolic blood 2021-03-12 58 mm[Hg] [facility] pressure 14:30:00 [facility] Heart rate 2021-03-12 61 /min [facility] 14:30:00 [facility] Respiratory rate 2021-03-12 18 /min [facility] 13:30:00 [facility] Oxygen saturation 2021-03-12 94 /min [facility] Arterial blood 13:30:00 [facility] by Pulse oximetry Body temperature 2021-03-[address] [facility] 12:02:00 [facility] Body height 2021-03-[address] [facility] 07:20:00 [facility] Body weight 2021-03-[address] [facility] 07:20:00 [facility] BMI 2021-03-12 36.32 kg/m2 [facility] 07:20:00 [facility] Procedures Procedure Date / Time Performing Clinician Source Performed BILIRUBIN, DIRECT 2022-09-17 09:46:00 Xenia [facility] COMPREHENSIVE METABOLIC 2022-09-17 09:46:00 Xenia [facility] CBC W/PLT COUNT & AUTO 2022-09-17 09:46:00 Xenia [facility] MAGNESIUM 2022-09-17 09:46:00 Xenia [facility] PHOSPHORUS 2022-09-17 09:46:00 Xenia [facility] TACROLIMUS LEVEL 2022-09-17 09:46:00 [facility] CBC W/PLT COUNT & AUTO 2022-09-17 09:46:00 Xenia [facility] BILIRUBIN, DIRECT 2022-09-15 09:59:00 Xenia [facility] COMPREHENSIVE METABOLIC 2022-09-15 09:59:00 Xenia [facility] CBC W/PLT COUNT & AUTO 2022-09-15 09:59:00 Xenia [facility] MAGNESIUM 2022-09-15 09:59:00 Xenia [facility] PHOSPHORUS 2022-09-15 09:59:00 Xenia [facility] TACROLIMUS LEVEL 2022-09-15 09:59:00 [facility] HEPATITIS B PCR, 2022-09-15 09:59:00 Xenia [facility] HEPATITIS C PCR, 2022-09-15 09:59:00 Xenia [facility] HIV-1 PCR, QUANTITATIVE 2022-09-15 09:59:00 Xenia [facility] CBC W/PLT COUNT & AUTO 2022-09-15 09:59:00 Xenia [facility] POCT-GLUCOSE METER 2022-09-11 07:30:00 Xenia [facility] TACROLIMUS LEVEL 2022-09-11 05:16:00 [facility] HEPATIC FUNCTION PANEL 2022-09-11 05:16:00 [facility] MAGNESIUM 2022-09-11 05:16:00 [facility] PHOSPHORUS 2022-09-11 05:16:00 [facility] BASIC METABOLIC PANEL 2022-09-11 05:16:00 [facility] CBC W/PLT COUNT & AUTO 2022-09-11 05:16:00 [facility] PROTHROMBIN TIME/INR 2022-09-11 05:16:00 [facility] APTT 2022-09-11 05:16:00 Pending sale to [facility] CBC W/PLT COUNT & AUTO 2022-09-11 05:16:00 [facility] POCT-GLUCOSE METER 2022-09-10 20:24:00 [facility] POCT-GLUCOSE METER 2022-09-10 16:13:00 [facility] POCT-GLUCOSE METER 2022-09-10 11:05:00 [facility] POCT-GLUCOSE METER 2022-09-10 08:19:00 [facility] TACROLIMUS LEVEL 2022-09-10 05:36:00 [facility] HEPATIC FUNCTION PANEL 2022-09-10 05:36:00 [facility] MAGNESIUM 2022-09-10 05:36:00 [facility] PHOSPHORUS 2022-09-10 05:36:00 [facility] BASIC METABOLIC PANEL 2022-09-10 05:36:00 [facility] CBC W/PLT COUNT & AUTO 2022-09-10 05:36:00 El Nihum [facility] DIFFERENTIAL [facility] PROTHROMBIN TIME/INR 2022-09-10 05:36:00 [facility] APTT 2022-09-10 05:36:00 [facility] GAMMA GLUTAMYL TRANSFERASE 2022-09-10 05:36:00 Al Christine Yumiko [facility] (GGT) [facility] CBC W/PLT COUNT & AUTO 2022-09-10 05:36:00 El Nih [facility] DIFFERENTIAL [facility] POCT-GLUCOSE METER 2022-09-09 22:02:00 Xenia [facility] POCT-GLUCOSE METER 2022-09-09 17:21:00 [place] Jame [facility] POCT-GLUCOSE METER 2022-09-09 12:24:00 [facility] REPORT OF PROCEDURE - 2022-09-09 12:01:09 Osbaldo Irvin [facility] ENDOSCOPY URL Center [place] ERCP 2022-09-09 11:55:00 Osbaldo Irvin [facility] ERCP, WITH SPHINCTEROTOMY 2022-09-09 11:13:00 Osbaldo Irvin [facility] PROCEDURE W/ C-ARM 2022-09-09 11:13:00 Osbaldo Irvin [facility] ENDOSCOPIC RETROGRADE 2022-09-09 11:13:00 Osbaldo Irvin [facility] CHOLANGIOPANCREATOGRAPHY, Center WITH BILE DUCT STENT INSERTION BEDSIDE SPIROMETRY 2022-09-09 09:03:00 Marta Jacobs [facility] POCT-GLUCOSE METER 2022-09-09 08:02:00 Shamar Michaels [facility] TACROLIMUS LEVEL 2022-09-09 06:13:00 [facility] HEPATIC FUNCTION PANEL 2022-09-09 06:13:00 [facility] MAGNESIUM 2022-09-09 06:13:00 [facility] PHOSPHORUS 2022-09-09 06:13:00 [facility] BASIC METABOLIC PANEL 2022-09-09 06:13:00 [facility] CBC W/PLT COUNT & AUTO 2022-09-09 06:13:00 [facility] DIFFERENTIAL [facility] PROTHROMBIN TIME/INR 2022-09-09 06:13:00 [facility] APTT 2022-09-09 06:13:00 Pending sale to [facility] GAMMA GLUTAMYL TRANSFERASE 2022-09-09 06:13:00 [facility] (GGT) [facility] CBC W/PLT COUNT & AUTO 2022-09-09 06:13:00 [facility] DIFFERENTIAL [facility] POCT-GLUCOSE METER 2022-09-08 21:48:00 [place] [facility] POCT-GLUCOSE METER 2022-09-08 17:14:00 [place] [facility] PSA 2022-09-08 15:15:00 [facility] RESPIRATORY PANEL 2022-09-08 15:10:00 Stella Menchaca [facility] POCT-GLUCOSE METER 2022-09-08 08:13:00 Xenia [facility] TACROLIMUS LEVEL 2022-09-08 05:24:00 [facility] HEPATIC FUNCTION PANEL 2022-09-08 05:24:00 [facility] MAGNESIUM 2022-09-08 05:24:00 [facility] PHOSPHORUS 2022-09-08 05:24:00 [facility] BASIC METABOLIC PANEL 2022-09-08 05:24:00 [facility] CBC W/PLT COUNT & AUTO 2022-09-08 05:24:00 [facility] PROTHROMBIN TIME/INR 2022-09-08 05:24[facility] 2022-09-08 05:24:00 Pending [facility] to [facility] GAMMA GLUTAMYL TRANSFERASE 2022-09-08 05:24:00 Christine Armando [facility] (GGT) [facility] CBC W/PLT COUNT & AUTO 2022-09-08 05:24:00 [facility] POCT-GLUCOSE METER 2022-09-07 21:35:00 [place] [facility] POCT-GLUCOSE METER 2022-09-07 12:45:00 [facility] POCT-GLUCOSE METER 2022-09-07 07:27:00 [facility] TACROLIMUS LEVEL 2022-09-07 06:05:00 [facility] HEPATIC FUNCTION PANEL 2022-09-07 06:05:00 [facility] MAGNESIUM 2022-09-07 06:05:00 [facility] PHOSPHORUS 2022-09-07 06:05:00 [facility] BASIC METABOLIC PANEL 2022-09-07 06:05:00 [facility] CBC W/PLT COUNT & AUTO 2022-09-07 06:05:[address] [facility] PROTHROMBIN TIME/INR 2022-09-07 06:05:00 [facility] APTT 2022-09-07 06:05:00 Pending sale to [facility] GAMMA GLUTAMYL TRANSFERASE 2022-09-07 06:05:00 [facility] CBC W/PLT COUNT & AUTO 2022-09-07 06:05:00 El Sorin [facility] DIFFERENTIAL [facility] POCT-GLUCOSE METER 2022-09-06 23:26:00 Xenia [facility] POCT-GLUCOSE METER 2022-09-06 16:26:00 Xenia [facility] MISCELLANEOUS LAB ORDER 2022-09-06 16:02:00 [facility] TOXICOLOGY SCREEN, SERUM 2022-09-06 16:02:00 [facility] RAPID DRUG SCREEN, URINE 2022-09-06 16:02:00 [facility] POCT-GLUCOSE METER 2022-09-06 12:12:00 Xenia [facility] POCT-GLUCOSE METER 2022-09-06 08:27:00 Xenia [facility] TACROLIMUS LEVEL 2022-09-06 06:24:00 [facility] HEPATIC FUNCTION PANEL 2022-09-06 06:24:00 [facility] MAGNESIUM 2022-09-06 06:24:00 [facility] PHOSPHORUS 2022-09-06 06:24:00 [facility] BASIC METABOLIC PANEL 2022-09-06 06:24:00 [facility] GAMMA GLUTAMYL TRANSFERASE 2022-09-06 06:24:00 Troung Rowell [facility] (GGT) [facility] CBC W/PLT COUNT & AUTO 2022-09-06 06:24:00 Truong Rowell [facility] DIFFERENTIAL [facility] PROTHROMBIN TIME/INR 2022-09-06 06:24:00 El Sorin [facility] APTT 2022-09-06 06:24:00 [facility] CBC W/PLT COUNT & AUTO 2022-09-06 06:24[facility]00 [facility] DIFFERENTIAL [facility] US ABDOMINAL WITH DOPPLER 2022-09-05 23:10:00 [facility] URINE CULTURE 2022-09-05 22:11:00 [facility] URINALYSIS W/ REFLEX URINE 2022-09-05 22:11:00 [facility] C[facility] SPUTUM CULTURE + GRAM 2022-09-05 22:10:00 [facility] STAIN [facility] BLOOD CULTURE 2022-09-05 21:57:00 Pending sale to [facility] SARS-COV2/RT-PCR ([facility] & 2022-09-05 21:46:00 [facility] REF LABS) [facility] CMV PCR, QUANTITATIVE 2022-09-05 21:46:00 [facility] EBV VIRAL LOAD 2022-09-05 21:46:00 [facility] ADENOVIRUS PCR, 2022-09-05 21:46:00 [facility] QUALITATIVE [facility] HEPATIC FUNCTION PANEL 2022-09-05 21:46:00 [facility] PHOSPHORUS 2022-09-05 21:46:00 [facility] GAMMA GLUTAMYL TRANSFERASE 2022-09-05 21:46:00 [facility] (GGT) [facility] B-TYPE NATRIURETIC FACTOR 2022-09-05 21:46:00 [facility] (BNP) [facility] CBC W/PLT COUNT & AUTO 2022-09-05 21:46:00 [facility] DIFFERENTIAL [facility] BASIC METABOLIC PANEL 2022-09-05 21:46:00 [facility] MAGNESIUM 2022-09-05 21:46:00 [facility], [facility] PROTHROMBIN TIME/INR 2022-09-05 21:46:00 El [facility] APTT 2022-09-05 21:46:00 El [facility] CBC W/PLT COUNT & AUTO 2022-09-05 21:46:00 [facility] DIFFERENTIAL [facility] BLOOD CULTURE 2022-09-05 21:44:00 Pending sale to [facility] XR CHEST 1 VIEW PORTABLE / 2022-09-05 19:41:00 Christine Armando [facility] BEDSIDE [facility] BILIRUBIN, DIRECT 2022-09-05 09:07:00 Xenia [facility] COMPREHENSIVE METABOLIC 2022-09-05 09:07:00 [facility] AUTO 2022-09-05 09:07:00 Xenia [facility] MAGNESIUM 2022-09-05 09:07:00 [facility] PHOSPHORUS 2022-09-05 09:07:00 [facility] TACROLIMUS LEVEL 2022-09-05 09:07:00 [facility] CBC W/PLT COUNT & AUTO 2022-09-05 09:07:00 [facility] BILIRUBIN, DIRECT 2022-09-01 10:15:00 [facility] COMPREHENSIVE METABOLIC 2022-09-01 10:15:00 Xenia [facility] CBC W/PLT COUNT & AUTO 2022-09-01 10:15:00 [facility] MAGNESIUM 2022-09-01 10:15:00 Xenia [facility] PHOSPHORUS 2022-09-01 10:15:00 [facility] TACROLIMUS LEVEL 2022-09-01 10:15:00 [facility] CBC W/PLT COUNT & AUTO 2022-09-01 10:15:00 [facility] BILIRUBIN, DIRECT 2022-08-29 10:00:00 [facility] COMPREHENSIVE METABOLIC 2022-08-29 10:00:00 [facility] CBC W/PLT COUNT & AUTO 2022-08-29 10:00:00 [facility] MAGNESIUM 2022-08-29 10:00:00 [facility] PHOSPHORUS 2022-08-29 10:00:00 [facility] TACROLIMUS LEVEL 2022-08-29 10:00:00 [facility] CBC W/PLT COUNT & AUTO 2022-08-29 10:00:00 [facility] TACROLIMUS LEVEL 2022-08-25 09:47:00 [facility] PHOSPHORUS 2022-08-25 09:47:00 [facility] MAGNESIUM 2022-08-25 09:47:00 [facility] CBC W/PLT COUNT & AUTO 2022-08-25 09:47:00 [facility] COMPREHENSIVE METABOLIC 2022-08-25 09:47:00 [facility] BILIRUBIN, DIRECT 2022-08-25 09:47:00 [facility] CBC W/PLT COUNT & AUTO 2022-08-25 09:47:00 [facility] (CELLAVISION MANUAL DIFF) 2022-08-25 09:47:00 Shamar Michaels [facility] POCT-GLUCOSE METER 2022-08-23 08:24:00 [facility] TACROLIMUS LEVEL 2022-08-23 06:10:00 Serkev [facility] HEPATIC FUNCTION PANEL 2022-08-23 06:10:00 Serenicookie [facility] PROTHROMBIN TIME/INR 2022-08-23 06:10:00 [facility] BASIC METABOLIC PANEL 2022-08-23 06:10:00 [facility] CBC W/PLT COUNT & AUTO 2022-08-23 06:10:00 [facility] PHOSPHORUS 2022-08-23 06:10:00 [facility] MAGNESIUM 2022-08-23 06:10:00 [facility] CBC W/PLT COUNT & AUTO 2022-08-23 06:10:00 [facility] XR CHEST 1 VIEW PORTABLE / 2022-08-23 05:05:00 Alice Solis [facility] POCT-GLUCOSE METER 2022-08-22 22:24:00 Shamar Michaels [facility] POCT-GLUCOSE METER 2022-08-22 16:33:00 Xenia [facility] POCT-GLUCOSE METER 2022-08-22 13:01:00 Xenia [facility] POCT-GLUCOSE METER 2022-08-22 09:10:00 Xenia [facility] TACROLIMUS LEVEL 2022-08-22 04:43:00 Serkev [facility] HEPATIC FUNCTION PANEL 2022-08-22 04:43:00 Serkev [facility] PROTHROMBIN TIME/INR 2022-08-22 04:43:00 [facility] IMMUNOGLOBULIN G (IGG) 2022-08-22 04:43:00 [facility] PREALBUMIN 2022-08-22 04:43:00 [facility] TSH/FREE T4 IF INDICATED 2022-08-22 04:43:00 [facility] BASIC METABOLIC PANEL 2022-08-22 04:43:00 [facility] CBC W/PLT COUNT & AUTO 2022-08-22 04:43:00 [facility] PHOSPHORUS 2022-08-22 04:43:00 [facility] MAGNESIUM 2022-08-22 04:43:00 [facility] CBC W/PLT COUNT & AUTO 2022-08-22 04:43:00 [facility] XR CHEST 1 VIEW PORTABLE / 2022-08-22 03:45:[address] [facility] PREPARE LEUKO-REDUCED RBC 2022-08-21 23:54:00 Alice Solis [facility] POCT-GLUCOSE METER 2022-08-21 21:00:00 [place] [facility] POCT-GLUCOSE METER 2022-08-21 17:16:00 [place] [facility] POCT-GLUCOSE METER 2022-08-21 12:44:00 [place] [facility] VANCOMYCIN LEVEL, TROUGH 2022-08-21 08:14:00 Kevin Ramirez [facility] POCT-GLUCOSE METER 2022-08-21 08:10:00 [place] [facility] POCT-GLUCOSE METER 2022-08-21 06:17:00 [place] [facility] XR CHEST 1 VIEW PORTABLE / 2022-08-21 04:44:00 [facility] CALCIUM, IONIZED 2022-08-21 03:35:00 Luther Cesar [facility] BLOOD GAS, ARTERIAL 2022-08-21 03:35:00 [facility] TACROLIMUS LEVEL 2022-08-21 03:35[facility]00 [facility] 2022-08-21 [facility]22-08-21 03:35[facility]00 [facility] PROT[facility]/INR 2022-08-21 03:35:00 [facility] BASIC METABOLIC PANEL 2022-08-21 03:35:00 [facility] CBC W/PLT COUNT & AUTO 2022-08-21 03:35:00 [facility] PHOSPHORUS 2022-08-21 03:35:00 [facility] MAGNESIUM 2022-08-21 03:35:00 [facility] CBC W/PLT COUNT & AUTO 2022-08-21 03:35:00 [facility] POCT-GLUCOSE METER 2022-08-20 23:29:00 Xenia [facility] CBC W/PLT COUNT & AUTO 2022-08-20 21:40:00 [facility] DIFFERENTIAL [facility] CBC W/PLT COUNT & AUTO 2022-08-20 21:40:00 [facility] POCT-GLUCOSE METER 2022-08-20 17:35:00 Shamar Michaels [facility] TRANSFUSE LEUKO-REDUCED 2022-08-20 15:30:00 Alice Solis [facility] RED BLOOD CELLS [facility] POCT-GLUCOSE METER 2022-08-20 15:28:00 Shamar Michaels [facility] CBC W/PLT COUNT & AUTO 2022-08-20 11:46:00 [facility] DIFFERENTIAL Center POCT-GLUCOSE METER 2022-08-20 11:46:00 Shamar Michaels [facility] CBC W/PLT COUNT & AUTO 2022-08-20 11:46:00 [facility] DIFFERENTIAL [place] HEMOGLOBIN A1C 2022-08-20 08:12:00 [facility] XR CHEST 1 VIEW PORTABLE / 2022-08-20 06:04:00 Alice Solis [facility] BEDSIDE [facility] TRANSFUSE LEUKO-REDUCED 2022-08-20 06:00:00 Ana Bonner [facility] RED BLOOD CELLS Center POCT-GLUCOSE METER 2022-08-20 05:34:00 Shamar Michaels [facility] TACROLIMUS LEVEL 2022-08-20 04:31:00 [facility]LOOD [facility], ARTERIAL 2022-08-20 02:32:00 [facility] 2022-08-20 02:31:00 Clarence Pablo [facility] CALCIUM, IONIZED 2022-08-20 02:31:00 [facility] LACTIC ACID, ARTERIAL 2022-08-20 02:31:00 [facility] HEPATIC FUNCTION PANEL 2022-08-20 02:31:00 [facility] PROTHROM[facility] TIME/INR 2022-08-20 02:31:00 [facility] BASIC METABOLIC PANEL 2022-08-20 02:31:00 [facility] CBC W/PLT COUNT & AUTO 2022-08-20 02:31:00 [facility] PHOSPHORUS 2022-08-20 02:31:00 [facility] MAGNESIUM 2022-08-20 02:31:00 [facility] CBC W/PLT COUNT & AUTO 2022-08-20 02:31:00 [facility] POCT-GLUCOSE METER 2022-08-20 00:11:00 Xenia [facility] POCT-GLUCOSE METER 2022-08-19 18:43:00 Xenia [facility] POCT-GLUCOSE METER 2022-08-19 15:58:00 Xenia [facility] POCT-GLUCOSE METER 2022-08-19 11:51:00 Xenia [facility] CBC W/PLT COUNT & AUTO 2022-08-19 11:49:00 [facility] CBC W/PLT COUNT & AUTO 2022-08-19 11:49:00 [facility] POCT-GLUCOSE METER 2022-08-19 06:29:00 [facility] [facility] XR CHEST 1 VIEW PORTABLE / 2022-08-19 04:39:00 [facility]io [facility] BEDSIDE [facility] CALCIUM, IONIZED 2022-08-19 04:14:00 Arsenio [facility] BLOOD GAS, ARTERIAL 2022-08-19 04:14:00 Arsenio [facility] TACROLIMUS LEVEL 2022-08-19 04:14:00 Serkev [facility] LACTIC ACID, ARTERIAL 2022-08-19 04:14:00 Serkev [facility] HEPATIC FUNCTION PANEL 2022-08-19 04:14:00 [facility]/INR 2022-08-19 04:14:00 [facility] BASIC METABOLIC PANEL 2022-08-19 04:14:00 [facility] CBC W/PLT COUNT & AUTO 2022-08-19 04:14:00 [facility] PHOSPHORUS 2022-08-19 04:14:00 [facility] MAGNESIUM 2022-08-19 04:14:00 [facility] CBC W/PLT COUNT & AUTO 2022-08-19 04:14:00 [facility] POCT-GLUCOSE METER 2022-08-19 01:35:00 [facility] PREPARE RBC 2022-08-18 23:54:00 [facility] PREPARE PLASMA 2022-08-18 23:54:00 [facility] PREPARE PLATELETS 2022-08-18 23:54:00 [facility] PREPARE CRYOPRECIPITATE 2022-08-18 23:54:00 [facility] BLOOD GAS, ARTERIAL 2022-08-18 20:49:00 Froilan Arreaga [facility] COMPREHENSIVE METABOLIC 2022-08-18 20:49:00 Froilan Arreaga [facility] POCT-GLUCOSE METER 2022-08-18 19:17:00 [place] [facility] POCT-GLUCOSE METER 2022-08-18 18:28:00 Xenia [facility] POCT-GLUCOSE METER 2022-08-18 17:59[facility] WITH DOPPLER 2022-08-18 17:23:00 [facility] US DOPPLER 2022-08-18 17:23:00 [facility] POCT-GLUCOSE METER 2022-08-18 14:06:00 [facility] POCT-GLUCOSE METER 2022-08-18 12:34:00 [facility]SE [facility] 2022-08-18 11:28:00 Xenia [facility] POCT-GLUCOSE METER 2022-08-18 09:29:00 [facility] PO[facility]SE METER 2022-08-18 07:02:00 [facility] MAGNESIUM 2022-08-18 06:57:00 Nathaniel Armandoah [facility] POCT-GLUCOSE METER 2022-08-18 06:02:00 [facility]IT[facility] LABS 2022-08-18 05:58:00 [facility] (ABG,NA,K,H&H,GLUCOSE) [facility] BLOOD GAS, ARTERIAL 2022-08-18 05:58:00 [facility] SODIUM NA-STAT LAB 2022-08-18 05:58:00 [facility] POTASSIUM-STAT LAB 2022-08-18 05:58:00 [facility] GLUCOSE-STAT LAB 2022-08-18 05:58:00 [facility] HGB/HCT (H&H) - STAT LAB 2022-08-18 05:58:00 [facility] BLOOD GAS, ARTERIAL 2022-08-18 04:59:00 [facility] POCT-GLUCOSE METER 2022-08-18 04:55:00 [facility] CBC (HEMOGRAM ONLY) 2022-08-18 03:08:00 [facility] PT/APTT 2022-08-18 03:08:00 [facility] FIBRINOGEN 2022-08-18 03:08:00 [facility] BLOOD GAS, ARTERIAL 2022-08-18 03:08:00 Arsenio [facility] LACTIC ACID, ARTERIAL 2022-08-18 03:08:00 Ser[facility]v [facility] BASIC METABOLIC PANEL 2022-08-18 03:08:00 Arsenio [facility] MAGNESIUM 2022-08-18 03:08:00 Serkev [facility] PHOSPHORUS 2022-08-18 [facility]:08[facility] 2022-08-18 03:08:00 Christine Armando [facility] POCT-GLUCOSE METER 2022-08-18 03:06:00 Xenia [facility] POCT-GLUCOSE METER 2022-08-18 02:02:00 Xenia [facility] POCT-GLUCOSE METER 2022-08-18 01:11:00 Xenia [facility] XR CHEST 1 VIEW PORTABLE / 2022-08-18 01:08:00 Arsenio [facility] LACTIC ACID, ARTERIAL 2022-08-18 00:34:00 Arsenio [facility] CBC W/PLT COUNT & AUTO 2022-08-18 00:30:00 Arsenio [facility] BASIC METABOLIC PANEL 2022-08-18 00:30:00 Arsenio [facility] MAGNESIUM 2022-08-18 00:30:00 Serkev [facility] PHOSPHORUS 2022-08-18 00:30[facility] 2022-08-18 00:30:00 Arsenio [facility] BLOOD GAS, ARTERIAL 2022-08-18 00:30:00 [facility] CALCIUM, IONIZED 2022-08-18 00:30[facility] 2022-08-18 00:30:00 Serkev [facility] FIBRINOGEN 2022-08-18 00:30[facility]T [facility] & AUTO 2022-08-18 00:30:00 [facility] DIFFERENTIAL [facility] PREPARE RBC 2022-08-18 00:27:00 Shamar Michaels [facility] RRL CRITICAL LABS 2022-08-17 22:46:19 Cherelle [facility] (ABG,NA,K,H&H,GLUCOSE) [place] CALCIUM, IONIZED 2022-08-17 22:46:19 [facility] BLOOD [facility], ARTERIAL 2022-08-17 22:46:19 Cherelle [facility] SODIUM NA-STAT LAB 2022-08-17 22:46:19 [facility] 2022-08-17 22:46:19 [facility] GLUCOSE-STAT LAB 2022-08-17 22:46:19 [facility] ([facility]&H) - STAT LAB 2022-08-17 22:46:19 Cherelle [facility] RRL CRITICAL LABS 2022-08-17 22:23:15 Cherelle [facility] (ABG,NA,K,H&H,GLUCOSE) [place] CALCIUM, IONIZED 2022-08-17 22:23:15 [facility] BLOOD GAS, ARTERIAL 2022-08-17 22:23:15 Cherelle [facility] SODIUM NA-STAT LAB 2022-08-17 22:23:15 [facility] POT[facility]SIUM-STAT LAB 2022-08-17 22:23:15 [facility] GLU[facility]SE-STAT LAB 2022-08-17 22:23:15 Cherelle [facility] HGB/HCT (H&H) - STAT LAB 2022-08-17 22:23:15 Cherelle [facility] TRANSFUSE LEUKO-REDUCED 2022-08-17 22:15:00 Cherelle [facility] RED BLOOD CELLS [place] TRANSFUSE LEUKO-REDUCED 2022-08-17 22:13:00 Cherelle [facility] RED BLOOD CELLS [place] TRANSFUSE LEUKO-REDUCED 2022-08-17 22:12:00 Cherelle [facility] RED BLOOD CELLS [place] TRANSFUSE CRYOPRECIPITATE 2022-08-17 22:07:00 Cherelle [facility] TRANSFUSE CRYOPRECIPITATE 2022-08-17 22:06:00 Cherelle [facility] TRANSFUSE LEUKO-REDUCED 2022-08-17 22:04:00 Cherelle [facility] PLATELETS Center TRANSFUSE LEUKO-REDUCED 2022-08-17 22:03:00 Cherelle [facility] PLATELETS Center TRANSFUSE LEUKO-REDUCED 2022-08-17 21:49:00 Cherelle [facility] RED BLOOD CELLS [place] RRL CRITICAL LABS 2022-08-17 21:44:38 [facility] ([facility]G,NA,K,H&H,GLUCOSE) [place] CALCIUM, IONIZED 2022-08-17 21:44:38 Cherelle [facility] BLOOD GAS, ARTERIAL 2022-08-17 21:44:38 Cherelle [facility] SODIUM NA-STAT LAB 2022-08-17 21:44:38 [facility] POT[facility]SI[facility]-STAT LAB 2022-08-17 21:44:38 Cherelle [facility] GLUCOSE-STAT LAB 2022-08-17 21:44:38 Cherelle [facility] HGB/HCT (H&H) - STAT LAB 2022-08-17 21:44:38 C[facility]lle [facility] TRANSFUSE LEUKO-REDUCED 2022-08-17 21:26:00 Cherelle [facility] RED BLOOD CELLS Center RRL CRITICAL LABS 2022-08-17 21:25:16 Cherelle [facility] (ABG,NA,K,H&H,GLUCOSE) [place] CALCIUM, IONIZED 2022-08-17 21:25:16 Cherelle [facility] BLOOD GAS, ARTERIAL 2022-08-17 21:25:16 Cherelle [facility] SODIUM NA-STAT LAB 2022-08-17 21:25:16 Cherelle [facility] POTASSIUM-STAT LAB 2022-08-17 21:25:16 Cherelle [facility] GLUCOSE-STAT LAB 2022-08-17 21:25:16 Cherelle [facility] HGB/HCT (H&H) - STAT LAB 2022-08-17 21:25:16 Cherelle [facility] RRL CRITICAL LABS 2022-08-17 21:16:33 Cherelle [facility] (ABG,NA,K,H&H,GLUCOSE) [place] CALCIUM, IONIZED 2022-08-17 21:16:33 Cherelle [facility] BLOOD GAS, ARTERIAL 2022-08-17 21:16:33 Cherelle [facility] SODIUM NA-STAT LAB 2022-08-17 21:16:33 Cherelle [facility] POTASSIUM-STAT LAB 2022-08-17 21:16:33 Cherelle [facility] GLUCOSE-STAT LAB 2022-08-17 21:16:33 Cherelle [facility] HGB/HCT (H&H) - STAT LAB 2022-08-17 21:16:33 Cherelle [facility] RRL CRITICAL LABS 2022-08-17 20:51:21 Cherelle [facility] (ABG,NA,K,H&H,GLUCOSE) Center CALCIUM, IONIZED 2022-08-17 20:51:21 Cherelle [facility] BLOOD GAS, ARTERIAL 2022-08-17 20:51:21 Cherelle [facility] SODIUM NA-STAT LAB 2022-08-17 20:51:21 Cherelle [facility] POTASSIUM-STAT LAB 2022-08-17 20:51:21 Cherelle [facility] GLUCOSE-STAT LAB 2022-08-17 20:51:21 Cherelle [facility] HGB/HCT (H&H) - STAT LAB 2022-08-17 20:51:21 Cherelle [facility] TRANSFUSE LEUKO-REDUCED 2022-08-17 20:47:00 Cherelle [facility] RED BLOOD CELLS [place] TRANSFUSE PLASMA 2022-08-17 20:44:00 Cherelle [facility] TISSUE EXAM 2022-08-17 20:27:00 Shamar Michaels [facility] RRL CRITICAL LABS 2022-08-17 20:05:27 [facility] (ABG,NA,K,H&H,GLUCOSE) [place] CALCIUM, IONIZED 2022-08-17 20:05:27 Cherelle [facility] BLOOD GAS, ARTERIAL 2022-08-17 20:05:27 Cherelle [facility] SODIUM NA-STAT LAB 2022-08-17 20:05:27 Cherelle [facility] POTASSIUM-STAT LAB 2022-08-17 20:05:27 Cherelle [facility] GLUCOSE-STAT LAB 2022-08-17 20:05:27 Cherelle [facility] HGB/HCT (H&H) - STAT LAB 2022-08-17 20:05:27 Cherelle [facility] TRANSFUSE LEUKO-REDUCED 2022-08-17 19:46:00 Cherelle [facility] RED BLOOD CELLS [place] TRANSFUSE PLASMA 2022-08-17 19:37:00 Cherelle [facility] RRL CRITICAL LABS 2022-08-17 19:09:53 Cherelle [facility] (ABG,NA,K,H&H,GLUCOSE) [place] CALCIUM, IONIZED 2022-08-17 19:09:53 [facility] BLOOD GAS, ARTERIAL 2022-08-17 19:09:53 Cherelle [facility] SODIUM NA-STAT LAB 2022-08-17 19:09:53 Cherelle [facility] POTASSIUM-STAT LAB 2022-08-17 19:09:53 Cherelle [facility] GLUCOSE-STAT LAB 2022-08-17 19:09:53 Cherelle [facility] HGB/HCT (H&H) - STAT LAB 2022-08-17 19:09:53 Cherelle [facility] FUNGUS CULTURE + SMEAR 2022-08-17 19:06:00 Xenia [facility] BODY FLUID CULTURE + GRAM 2022-08-17 19:06:00 Shamar Michaels [facility] ANAEROBIC CULTURE 2022-08-17 19:06:00 [place] [facility] AFB CULTURE + SMEAR 2022-08-17 19:06:00 [place] Shamar Jame [facility] (NON-SPUTUM) [place] TRANSFUSE PLASMA 2022-08-17 18:36:00 Cherelle [facility] TRANSFUSE LEUKO-REDUCED 2022-08-17 18:35:00 Cherelle [facility] RED BLOOD CELLS Center RRL CRITICAL LABS 2022-08-17 18:09:48 Cherelle [facility] (ABG,NA,K,H&H,GLUCOSE) [place] CALCIUM, IONIZED 2022-08-17 18:09:48 [facility] BLOOD GAS, ARTERIAL 2022-08-17 18:09:48 Cherelle [facility] SODIUM NA-STAT LAB 2022-08-17 18:09:48 [facility] POTASSIUM-STAT LAB 2022-08-17 18:09:48 Marion Villarreal [facility] GLUCOSE-STAT LAB 2022-08-17 18:09:48 Marion Villarreal [facility] HGB/HCT (H&H) - STAT LAB 2022-08-17 18:09:48 Marion Villarreal [facility] TRANSPLANT, LIVER 2022-08-17 17:27:00 Shamar Michaels [facility] XR CHEST 1 VIEW PORTABLE / 2022-08-17 14:47:00 Christine Armando [facility] HC LAB HIV-1 AG W/HIV-1&2 2022-08-17 13:12:00 [facility] HEPATITIS B PANEL 2022-08-17 13:12:00 [facility] HEPATITIS C ANTIBODY 2022-08-17 13:12:00 [facility] HEPATITIS C PCR, 2022-08-17 13:12:00 [facility] TSH 2022-08-17 13:12:00 [facility] T3 2022-08-17 13:12:00 [facility] T4 2022-08-17 13:12:00 [facility] COMPREHENSIVE METABOLIC 2022-08-17 13:12:00 [facility] STAT-LAB IONIZED CALCIUM 2022-08-17 13:12:00 [facility] MAGNESIUM 2022-08-17 13:12:00 [facility] PHOSPHORUS 2022-08-17 13:12:00 [facility] GAMMA GLUTAMYL TRANSFERASE 2022-08-17 13:12:00 [facility] Christine C [facility] (GGT) [facility] CYTOMEGALOVIRUS ANTIBODY, 2022-08-17 13:12:00 [facility], Christine [facility] CBC W/PLT COUNT & AUTO 2022-08-17 13:12:00 [facility] PROT[facility] TIME/INR 2022-08-17 13:12:00 [facility] APTT 2022-08-17 13:12:00 [facility] TYPE AND SCREEN, AUTOMATED 2022-08-17 13:12:[address] [facility] [address] CBC W/PLT COUNT & AUTO 2022-08-17 13:12:00 [facility] SARS-COV2/RT-PCR ([facility] & 2022-08-17 13:07:00 [facility] REF LABS) [facility] ECG 12-LEAD 2022-08-17 12:15:43 [facility] ECG 12-LEAD 2022-08-17 12:15:43 Unknown, Hl7 Doctor [facility] CT CHEST WITHOUT IV 2022-05-18 12:02:00 Amberly Washington [facility] CONTRAST Center MR ABDOMEN WITH & WITHOUT 2022-05-18 11:40:00 Amberly Washington [facility] IV CONTRAST Center ALPHA FETOPROTEIN (AFP), 2022-05-18 09:45:00 Amberly Washington [facility] TUMOR MARKER Center BASIC METABOLIC PANEL 2022-05-18 09:45:00 Amberly Washington [facility] CBC W/PLT COUNT & AUTO 2022-05-18 09:45:00 Amberly Washington [facility] DIFFERENTIAL Center HEPATIC FUNCTION PANEL 2022-05-18 09:45:00 Amberly Washington [facility] PROTHROMBIN TIME/INR 2022-05-18 09:45:00 Amberly Washington [facility] CBC W/PLT COUNT & AUTO 2022-05-18 09:45:00 Amberly Washington [facility] DIFFERENTIAL Center CBC W/PLT COUNT & AUTO 2022-01-07 14:53:00 Amberly Washington [facility] DIFFERENTIAL Center IRON, TIBC, % SAT. 2022-01-07 14:53:00 Amberly Washington [facility] (WITHOUT FERRITIN) Center FERRITIN 2022-01-07 14:53:00 Amberly Washington [facility] PLATELET ESTIMATION 2022-01-07 14:53:00 Amberly Washington [facility] MR BRAIN WITH & WITHOUT IV 2022-01-04 14:14:00 Amberly Washington [facility] CONTRAST Center CT HEAD WO CONTRAST 2021-12-26 22:35:08 Felisha Quintana [facility] BASIC METABOLIC PANEL (NA, 2021-12-26 21:33:00 Felisha Quintana [facility] K, CL, CO2, GLUCOSE, BUN, Medica l Branch CREATININE, CA) CBC WITH DIFF 2021-12-26 21:33:00 Felisha Quintana [facility] URINALYSIS 2021-12-26 21:33:00 Felisha Quintana [facility] COVID-19 (ID NOW RAPID 2021-12-26 20:48:00 Felisha Qiuntana [facility] TESTING) Medical Branch CONSENT/REFUSAL FOR 2021-12-26 20:32:58 Doctor Unassigned, [facility] DIAGNOSIS AND TREATMENT [facility] BASIC METABOLIC PANEL 2021-12-22 12:08:00 Amberly Washington [facility] CBC W/PLT COUNT & AUTO 2021-12-22 12:08:00 Amberly Washington [facility] HEPATIC FUNCTION PANEL 2021-12-22 12:08:00 Amberly Washington [facility] PROTHROMBIN TIME/INR 2021-12-22 12:08:00 Amberly Washington [facility] CBC W/PLT COUNT & AUTO 2021-12-22 12:08:00 Amberly Washington [facility] DIFFERENTIAL Center ALPHA FETOPROTEIN (AFP), 2021-12-06 13:43:00 Amberly Washington [facility] TUMOR MARKER Center BASIC METABOLIC PANEL 2021-12-06 13:43:00 Amberly Washington [facility] CBC W/PLT COUNT & AUTO 2021-12-06 13:43:00 Amberly Washington [facility] HEPATIC FUNCTION PANEL 2021-12-06 13:43:00 Amberly Washington [facility] PROTHROMBIN TIME/INR 2021-12-06 13:43:00 Amberly Washington [facility] CBC W/PLT COUNT & AUTO 2021-12-06 13:43:00 Amberly Washington [facility] MR ABDOMEN WITH & WITHOUT 2021-12-06 12:08:00 Amberly Washington [facility] IV CONTRAST Center MR METASTATIC SKELETAL 2021-12-06 11:10:00 Amberly Washington [facility] STUDY Center CT CHEST WITHOUT IV 2021-12-06 10:40:00 Amberly Washington [facility] CONTRAST Center MR ABDOMEN WITH & WITHOUT 2021-08-26 10:40:00 Amberly Washington [facility] IV CONTRAST Center CT CHEST WITHOUT IV 2021-08-26 10:00:00 Amberly Washington [facility] CONTRAST Center ALPHA FETOPROTEIN (AFP), 2021-08-26 08:27:00 Amberly Washington [facility] TUMOR MARKER Center BASIC METABOLIC PANEL 2021-08-26 08:27:00 Amberly Washington [facility] CBC W/PLT COUNT & AUTO 2021-08-26 08:27:00 Amberly Washington [facility] HEPATIC FUNCTION PANEL 2021-08-26 08:27:00 Amberly Washington [facility] PROTHROMBIN TIME/INR 2021-08-26 08:27:00 Amberly Washington [facility] CBC W/PLT COUNT & AUTO 2021-08-26 08:27:00 Amberly Washington [facility] HEREDITARY HEMOCHROMATOSIS 2021-08-26 08:24:00 Amberly Washington [facility] COMPREHENSIVE METABOLIC 2021-08-03 11:34:00 Amberly Washington [facility] PANEL Center ALPHA FETOPROTEIN (AFP), 2021-08-03 11:34:00 Amberly Washington [facility] TUMOR MARKER [place] PROTHROMBIN TIME/INR 2021-08-03 11:34:00 Amberly Washington [facility] CBC W/PLT COUNT & AUTO 2021-08-03 11:34:00 Amberly Washington [facility] NM BONE SCAN WHOLE BODY 2021-04-29 13:03:00 Amberly Washington [facility] MR ABDOMEN WITH & WITHOUT 2021-04-29 11:48:00 Amberly Washington [facility] IV CONTRAST Center CT CHEST WITHOUT IV 2021-04-29 10:31:00 Amberly Washington [facility] CONTRAST [place] ALPHA FETOPROTEIN (AFP), 2021-04-29 09:09:00 Amberly Washington [facility] TUMOR MARKER Center BASIC METABOLIC PANEL 2021-04-29 09:09:00 Amberly Washington [facility] CBC W/PLT COUNT & AUTO 2021-04-29 09:09:00 Amberly Washington [facility] HEPATIC FUNCTION PANEL 2021-04-29 09:09:00 Amberly Washington [facility] PROTHROMBIN TIME/INR 2021-04-29 09:09:00 Amberly Washington [facility] CBC W/PLT COUNT & AUTO 2021-04-29 09:09:00 Amberly Washington [facility] DIFFERENTIAL Center TROPONIN I 2021-04-01 19:14:00 Singer [facility] COMP. METABOLIC PANEL 2021-04-01 19:14:00 Raya Garrett [facility] ([id number]) Medical Branch AMMONIA, PLASMA 2021-04-01 19:12:00 Singer [facility] CBC WITH DIFF 2021-04-01 19:12:00 Singer [facility] XR CHEST 1 VW 2021-04-01 18:51:09 [facility] URINALYSIS 2021-04-01 18:40:00 Singer [facility] PROTHROMBIN TIME / INR 2021-04-01 18:30:00 Singer [facility] CONSENT/REFUSAL FOR 2021-04-01 17:58:35 [facility] DIAGNOSIS AND TREATMENT [facility] IR EMBOLIZATION ARTERIAL 2021-03-12 12:05:00 Amberly Washington [facility] BASIC METABOLIC PANEL (7) 2021-03-12 07:01:00 Anne-Marie More CH I [facility] HEPATIC FUNCTION PANEL 2021-03-12 07:01:00 Anne-Marie More [facility] CBC W/PLT COUNT & AUTO 2021-03-12 07:01:00 Anne-Marie More [facility] DIFFERENTIAL [facility] PROTHROMBIN TIME/INR 2021-03-12 07:01:00 Anne-Marie More [facility] CBC W/PLT COUNT & AUTO 2021-03-12 07:01:00 Anne-Marie More [facility] DIFFERENTIAL [facility] CBC W/PLT COUNT & AUTO 2021-02-23 10:05:00 Aicha Roman [facility] DIFFERENTIAL [facility] PROTHROMBIN TIME/INR 2021-02-23 10:05:00 Aicha Roman [facility] APTT 2021-02-23 10:05:00 [facility] BASIC METABOLIC PANEL (7) 2021-02-23 10:05:00 Aicha Roman [facility] HEPATIC FUNCTION PANEL 2021-02-23 10:05:00 Aicha Roman [facility] CBC W/PLT COUNT & AUTO 2021-02-23 10:05:00 [facility] DIFFERENTIAL [place] SARS-COV-2 COVID-19 2021-02-05 15:47:55 Doctor Unassigned, [facility] VACCINE,0.3ML,IM (PFIZER) [facility] MR ABDOMEN WITH & WITHOUT 2021-01-21 12:00:00 Amberly Washington [facility] IV CONTRAST Center CT CHEST WITHOUT IV 2021-01-21 10:45:00 Amberly Washington [facility] CONTRAST Center ALPHA FETOPROTEIN (AFP), 2021-01-21 10:02:00 Amberly Washington [facility] TUMOR MARKER Center BASIC METABOLIC PANEL (7) 2021-01-21 10:02:00 Amberly Washington [facility] CBC W/PLT COUNT & AUTO 2021-01-21 10:02:00 Amberly Washington [facility] HEPATIC FUNCTION PANEL 2021-01-21 10:02:00 Amberly Washington [facility] PROTHROMBIN TIME/INR 2021-01-21 10:02:00 Amberly Washington CH I [facility] HEPATITIS C PCR, 2021-01-21 10:02:00 Amberly Washington [facility] QUANTITATIVE Center CBC W/PLT COUNT & AUTO 2021-01-21 10:02:00 Amberly Washington [facility] DIFFERENTIAL Center IR EMBOLIZATION ARTERIAL 2020-11-26 12:27:00 Amberly Washington [facility] BASIC METABOLIC PANEL (7) 2020-11-26 08:28:00 Alayon, Anne-Marie [facility] HEPATIC FUNCTION PANEL 2020-11-26 08:28:00 [facility] W/PLT COUNT & AUTO 2020-11-26 08:28:00 [facility] [place] PROTHROMBIN TIME/INR 2020-11-26 08:28:00 [facility] [place] APTT 2020-11-26 08:28:00 [facility] W/[facility]T COUNT & AUTO 2020-11-26 08:28:00 JorgeKelsie [facility] BASIC METABOLIC PANEL (7) 2020-10-28 10:55:00 Amberly Washington [facility] HEPATIC FUNCTION PANEL 2020-10-28 10:55:00 Amberly Washington [facility] CBC W/PLT COUNT & AUTO 2020-10-28 10:55:00 Amberly Washington [facility] PROTHROMBIN TIME/INR 2020-10-28 10:55:00 Amberly Washington [facility] HEPATITIS C PCR, 2020-10-28 10:55:00 Amberly Washington [facility] QUANTITATIVE Center CBC W/PLT COUNT & AUTO 2020-10-28 10:55:00 Amberly Washington [facility] NM BONE SCAN WHOLE BODY 2020-10-08 14:02:00 Amberly Washington [facility] ALPHA FETOPROTEIN (AFP), 2020-10-08 10:54:00 Amberly Washington [facility] TUMOR MARKER Center BASIC METABOLIC PANEL (7) 2020-10-08 10:54:00 Amberly Washington [facility] CBC W/PLT COUNT & AUTO 2020-10-08 10:54:00 Amberly Washington [facility] HEPATIC FUNCTION PANEL 2020-10-08 10:54:00 RennymeAmberly [facility] PROTHROMBIN TIME/INR 2020-10-08 10:54:00 Amberly Washington [facility] CBC W/PLT COUNT & AUTO 2020-10-08 10:54:00 [facility] DIFFERENTIAL Center CT CHEST WITHOUT IV 2020-10-08 09:45:[address] [facility] [facility] CONTRAST Center MR ABDOMEN WITH & WITHOUT 2020-09-01 14:15:00 Jose Francisco [facility] IV CONTRAST Center BASIC METABOLIC PANEL (7) 2020-09-01 13:15:00 Lurdestwo twelve medical centerNickie C [facility] [facility] Nikole Elverson HEPATIC FUNCTION PANEL 2020-09-01 13:15:00 [facility] Nikole Elverson CBC W/PLT COUNT & AUTO 2020-09-01 13:15:00 [facility] DIFFERENTIAL Nikole Elverson PROTHROMBIN TIME/INR 2020-09-01 13:15:00 [facility] Nikole Elverson ALPHA FETOPROTEIN (AFP), 2020-09-01 13:15:00 [facility] T[facility]OR MARKER [facility] CBC W/PLT COUNT & AUTO 2020-09-01 13:15:00 [facility] DIFFERENTIAL Nikole Elverson XR CHEST 1 VW 2020-08-19 13:29:53 [facility] HB ECG ROUTINE & RHYTHM 2020-08-19 13:05:46 [facility] 2020-08-19 13:01:00 [facility] TROPONIN I 2020-08-19 13:01:00 [facility] HEPATIC FUNCTION PANEL 2020-08-19 13:01:00 [id number] (ALB,T.PRO,BILI Medical Branch T,BU/BC,ALT,AST,ALK PHOS) BASIC METABOLIC PANEL (NA, 2020-08-19 13:01:00 Wendy Bull [facility] K, CL, CO2, GLUCOSE, BUN, [facility] CREATININE, [place]) CBC WITH DIFF 2020-08-19 13:01:00 [facility] N-TERMINAL PRO-BNP 2020-08-19 13:01:00 Wendy Bull [facility] COVID-19 (ID NOW RAPID 2020-08-19 13:01:00 Wendy Bull [facility] TESTING) [facility] CONSENT/REFUSAL FOR 2020-08-19 12:21:55 Doctor Unassigned, [facility] DIAGNOSIS AND TREATMENT [employer] [employer] [facility] AMMONIA, PLASMA 2020-06-26 01:01:00 [place] [facility] PROTHROMBIN TIME / INR 2020-06-26 01:01:00 [place] [facility] XR CHEST 1 VW 2020-06-25 23:46:19 [place] [facility] LIPASE 2020-06-25 23:43:00 [place] [facility] MAGNESIUM 2020-06-25 23:43:00 [place] [facility] TROPONIN I 2020-06-25 23:43:00 [place] [facility] HEPATIC FUNCTION PANEL 2020-06-25 23:43:00 [place] San [facility] ([id number]) (ALB,T.PRO,BILI [facility] T,BU/BC,ALT,AST,ALK PHOS) BASIC METABOLIC PANEL (NA, 2020-06-25 23:43:00 [place] [facility] K, CL, CO2, GLUCOSE, [facility]UN, [facility] CREATININE, [place]) CBC WITH DIFF 2020-06-25 23:43:00 [place] [facility] URINALYSIS 2020-06-25 23:43:00 [facility] N-TERMINAL PRO-BNP 2020-06-25 23:43:00 [place] [facility] COVID-19 (ID NOW RAPID 2020-06-25 23:43:00 [place] [facility] TESTING) Medical Branch NOTICE OF PRIVACY 2020-06-25 22:41:45 Doctor Arboleda [facility] PRACTICES [facility] CONSENT/REFUSAL FOR 2020-06-25 22:41:[address] [facility] DIAGNOSIS AND TREATMENT [facility] HOME HEALTH - OTHER 2019-02-08 05:01:00 [facility] HEALTH - OTHER 2019-01-31 05:01:00 Trung Conte [facility] POCT HEMOGLOBIN A1C TEST 2019-01-21 21:30:00 Brenda Rod [facility] acute [facility] DME/SUPPLY JUSTIFICATION 2019-01-17 05:01:00 Doctor Arboleda [facility] HEALTH - OTHER 2019-01-07 05:01:00 Trung Conte [facility] - OTHER 2019-01-02 05:01:00 [facility] HEALTH - OTHER 2018-12-28 05:01:00 [facility] INSURANCE CORRESPONDENCE 2018-12-17 05:01:00 Doctor Arboleda [facility] PATIENT QUESTIONNAIRE 2016-10-19 05:01:00 Gisela Conte [facility] SCANNED LAB RESULTS 2016-10-13 05:01:00 Doctor [facility] Plan of Care Planned Activity Planned Date Details Comments Source Future Scheduled 2028-06-[address] [facility] colon (procedure) [code = 988219905] Future Scheduled 2028-06-[address] [facility] Test 00:00:00 [facility] colon (procedure) [code = 989303259] Future Scheduled 2028-06-[address] [facility] Test 00:00:00 [facility] colon (procedure) [code = 108773601] Future Scheduled 2028-06-[address] [facility] Test 00:00:00 [facility] colon (procedure) [code = 935213387] Future Scheduled 2028-06-[address] [facility] Test 00:00:00 [facility] colon (procedure) [code = 221900084] Future Scheduled 2028-06-[address] [facility] Test 00:00:00 [facility] colon (procedure) [code = 158461044] Future Scheduled 2028-06-[address] [facility] Test 00:00:00 [facility] colon (procedure) [code = 891695572] Future Scheduled 2028-06-[address] [facility] Test 00:00:00 [facility] colon (procedure) [code = 780134654] Future Scheduled 2028-06-[address] [facility] Test 00:00:00 [facility] colon (procedure) [code = 173312618] Future Scheduled 2028-06-[address] [facility] Test 00:00:00 malignant neoplasm [facility] Center colon (procedure) [code = 025927914] Future Scheduled 2028-06-[address] [facility] Test 00:00:00 malignant neoplasm [facility] Center colon (procedure) [code = 686684217] Future Scheduled 2028-06-[address] [facility] Test 00:00:00 malignant [facility]oplasm [facility] Center colon (procedure) [code = 663186981] Future Scheduled 2028-06-[address] [facility] Test 00:00:00 malignant neoplasm [facility] Center colon (procedure) [code = 729176520] Future Scheduled 2028-06-[address] [facility] Test 00:00:00 [facility] colon (procedure) [code = 791196401] Future Scheduled 2028-06-[address] [facility] [facility] Test 00:00:00 malignant [facility] colon (procedure) [code = 199675849] Future Scheduled 2026-09-18 DTAP/TDAP/TD VACCINES CH I [...] (2 - Td or Tdap)] Future Scheduled 2023-09-[address] [facility] Test 00:00:00 [facility] Medical Cent[facility] r Screening (12+) [code = Tobacco Cessation Counseling and Screening (12+)] Future Scheduled 2023-02-26 [facility] Influenza Seasonal [facility] arr Health Test 00:00:00 (>/= 19 yrs) [code = IMM Influenza Seasonal (>/= 19 yrs)] Future Scheduled 2023-01-27 INFLUENZA VACCINE [facility] Test 00:00:00 (Season Ended) [code = [facility] INFLUENZA VACCINE (Season Ended)] Future Scheduled 2023-01-02 Screening for [facility] Test 13:36:33 malignant neoplasm of colon (procedure) [code = 039232734] Future Scheduled 2023-01-02 [facility]ening for [facility] Test 13:36:33 malignant neoplasm of colon (procedure) [code = 700685391] Future Scheduled 2023-01-02 Screening for [facility] Test 13:36:33 malignant neoplasm of colon (procedure) [code = 071329306] Future Scheduled 2023-01-02 Hepatitis C screening [facility] Test 13:36:33 (procedure) [code = 487970691] Future Scheduled 2023-01-02 Screening for [facility] Test 13:36:33 malignant neoplasm of colon (procedure) [code = 345593089] Future Scheduled 2023-01-02 Screening for [facility] Test 13:36:33 malignant neoplasm of colon (procedure) [code = 574776993] Future Scheduled 2023-01-02 SHINGLES VACCINES (1 Met [facility] Test 13:36:33 of 2) [code = SHINGLES VACCINES (1 of 2)] Future Scheduled 2023-01-02 HEPATITIS B VACCINES [facility] Test 13:36:33 (1 of 3 - Risk 3-dose series) [code = HEPATITIS B VACCINES (1 of 3 - Risk 3-dose series)] Future Scheduled 2023-01-02 65+ [facility] 13:36:33 VACCINE (2 - PPSV23 if available, else PCV20) [code = 65+ PNEUMOCOCCAL VACCINE (2 - PPSV23 if available, else PCV20)] Future Scheduled 2023-01-02 COVID-19 VACCINE (4 - [facility] Test 13:36:33 Pfizer series) [code = COVID-19 VACCINE (4 - Pfizer series)] Future Scheduled 2023-01-02 INFLUENZA VACCINE [facility] Test 13:36:33 [code = INFLUENZA VACCINE] Future Scheduled 2022-08-29 [facility] 09:59:08 (procedure) [code = 770872015] Future Scheduled 2022-08-29 COLONOSCOPY SCREENING [facility] Test 09:59:08 [code = COLONOSCOPY SCREENING] Future Scheduled 2022-08-29 SHINGLES VACCINES (1 [facility] Test 09:59:08 of 2) [code = SHINGLES VACCINES (1 of 2)] Future Scheduled 2022-08-29 HEPATITIS B VACCINES [facility] Test 09:59:08 (1 of 3 - Risk 3-dose series) [code = HEPATITIS B VACCINES (1 of 3 - Risk 3-dose series)] Future Scheduled 2022-08-29 65+ [facility]CCAL [facility] Test 09:59:08 VACCINE (2 - PPSV23 if available, else PCV20) [code = 65+ PNEUMOCOCCAL VACCINE (2 - PPSV23 if available, else PCV20)] Future Scheduled 2022-08-29 COVID-19 VACCINE (4 - [facility] Test 09:59:08 Booster for Pfizer series) [code = COVID-19 VACCINE (4 - Booster for Pfizer series)] Future Scheduled 2022-08-29 INFLUENZA VACCINE [facility] Test 09:59:08 [code = INFLUENZA VACCINE] Future Scheduled 2022-08-29 Hepatitis C screening [facility] Test 09:59:08 (procedure) [code = 737842497] Future Scheduled 2022-08-29 COLONOSCOPY SCREENING [facility] Test 09:59:08 [code = COLONOSCOPY SCREENING] Future Scheduled 2022-08-29 SHINGLES VACCINES (1 [facility] Test 09:59:08 of 2) [code = SHINGLES VACCINES (1 of 2)] Future Scheduled 2022-08-29 HEPATITIS B VACCINES [facility] Test 09:59:08 (1 of 3 - Risk 3-dose series) [code = HEPATITIS B VACCINES (1 of 3 - Risk 3-dose series)] Future Scheduled 2022-08-29 65+ [facility]CCAL [facility] 09:59:08 VACCINE (2 - PPSV23 if available, else PCV20) [code = 65+ PNEUMOCOCCAL VACCINE (2 - PPSV23 if available, else PCV20)] Future Scheduled 2022-08-29 COVID-19 VACCINE (4 - [facility] Test 09:59:08 Booster for Pfizer series) [code = COVID-19 VACCINE (4 - Booster for Pfizer series)] Future Scheduled 2022-08-29 INFLUENZA VACCINE [facility] Test 09:59:08 [code = INFLUENZA VACCINE] Future Scheduled 2022-08-[address] [facility] 00[facility]00 [facility] (procedure) [code = 38724425] Future Scheduled 2022-08-02 Hepatitis C screening [facility] Test 10:48:26 (procedure) [code = 584149649] Future Scheduled 2022-08-02 COLONOSCOPY SCREENING [facility] Test 10:48:26 [code = COLONOSCOPY SCREENING] Future Scheduled 2022-08-02 SHINGLES VACCINES (1 Met [facility] Test 10:48:26 of 2) [code = SHINGLES VACCINES (1 of 2)] Future Scheduled 2022-08-02 HEPATITIS B VACCINES [facility] Test 10:48:26 (1 of 3 - Risk 3-dose series) [code = HEPATITIS B VACCINES (1 of 3 - Risk 3-dose series)] Future Scheduled 2022-08-02 65+ [facility]OCOCCAL [facility] Test 10:48:26 VACCINE (2 - PPSV23 if available, else PCV20) [code = 65+ PNEUMOCOCCAL VACCINE (2 - PPSV23 if available, else PCV20)] Future Scheduled 2022-08-02 COVID-19 VACCINE (4 - [facility] Test 10:48:26 Booster for Pfizer series) [code = COVID-19 VACCINE (4 - Booster for Pfizer series)] Future Scheduled 2022-08-02 INFLUENZA VACCINE [facility] Test 10:48:26 [code = INFLUENZA VACCINE] Future Scheduled 2022-05-[address] [facility] Test 00:00:00 (12+) [code = [facility] DEPRESSION SCREENING (12+)] Future Scheduled 2022-05-29 FALLS RISK SCREENING [facility] Test 00:00:00 [code = FALLS RISK Medical C enter SCREENING] Future Scheduled 2022-05-[address] [facility] Test 00:00:00 (12+) [code = [facility] DEPRESSION SCREENING (12+)] Future Scheduled 2022-05-29 [...] [facility] Test 00:00:00 (procedure) [code = [facility] 06773281] Future Scheduled 2021-12-[address] [facility] 00:00:00 (procedure) [code = [facility] 77317880] Future Scheduled 2021-12-[address] [facility] Test 00:00:00 (procedure) [code = [facility] 35791974] Future Scheduled 2021-12-[address] [facility] Test 00:00:00 (procedure) [code = [facility] 56484811] Future Scheduled 2021-12-[address] [facility] Test 00:00:00 (procedure) [code = [facility] 10093295] Future Scheduled 2021-12-[address] [facility] Test 00:00:00 (procedure) [code = [facility] 33432852] Future Scheduled 2021-12-[address] [facility] Test 00:00:00 (procedure) [code = [facility] 16001995] Future Scheduled 2021-12-[address] [facility] Test 00:00:00 (procedure) [code = [facility] Center 08654804] Future Scheduled 2021 Imm Pneumococcal 65+ Eusebio [...] screening Medical C enter (procedure) [code = 030884384] Future Scheduled [address] [facility] Test 00:00:00 aneurysm screening Medical C enter (procedure) [code = 684026664] Future Scheduled 2021 PNEUMOCOCCAL 65+ YRS [facility] Test 00:00:00 (2 - PPSV23 or PCV20) [facility] [code = PNEUMOCOCCAL 65+ YRS (2 - PPSV23 or PCV20)] Future Scheduled [address] [facility] Test 00:00:00 aneurysm screening Medical C enter (procedure) [code = 380767764] Future Scheduled 2021 PNEUMOCOCCAL 65+ YRS [facility]I [...] PPSV23 if available, else PCV20)] Future Scheduled 2021-06-07 COVID-19 VACCINE (4 [...] - Booster for Pfizer series)] Future Scheduled 2021-04-02 COVID-19 VACCINE (4 - [...] if no IPPE)] Future Scheduled 2018-12-23 PNEUMOCOCCAL 65+ Y[facility] Test 00:00:00 (2 - PPSV23 if Medical Cente r available, else PCV20) [code = PNEUMOCOCCAL 65+ YRS (2 - PPSV23 if available, else PCV20)] Future Scheduled 2018-12-[address] [facility] Test 00:00:00 0-64 YRS (1 of 2 - Medical C enter PPSV23) [code = PNEUMOCOCCAL VACCINE 0-64 YRS (1 of 2 - PPSV23)] Future Scheduled 2006 [facility] 00:[facility]:00 malignant neoplasm of colon (procedure) [code = 080536402] Future Scheduled 2006 [facility] 00:00:00 malignant neoplasm of colon (procedure) [code = 784267271] Future Scheduled 2006 [facility] 00:00:00 malignant neoplasm of colon (procedure) [code = 429466175] Future Scheduled 2006 [facility] 00:00:00 malignant neoplasm of colon (procedure) [code = 208731313] Future Scheduled 2006 SHINGLES VACCINES (1 [facility]I [...] malignant neoplasm of colon (procedure) [code = 079982924] Future Scheduled 2006 [facility] 00:00:00 malignant neoplasm of colon (procedure) [code = 089389566] Future Scheduled 2006 [facility] 00:00:00 malignant neoplasm of colon (procedure) [code = 523472425] Future Scheduled 2006 [facility] 00:00:00 malignant neoplasm of colon (procedure) [code = 135928811] Future Scheduled 2006 [facility] 00:00:00 malignant neoplasm of colon (procedure) [code = 246058368] Future Scheduled 2006 [facility] 00:[facility]:00 malignant neoplasm of colon (procedure) [code = 370942057] Future Scheduled 1975-11-29 SHINGLES VACCINES ([address] [facility] Test 00:00:00 of 2) [code = SHINGLES Medic al Center VACCINES (1 of 2)] Future Scheduled [address] EYE EXAM [facility] Test 00:00:00 [code = DIABETIC EYE Medical Center EXAM] Future Scheduled [address] [facility] 00:[facility]:00 examination Medical Center (regime/therapy) [code = 364080665] Future Scheduled 1966 Urine screening for [facility] Test 00:00:00 protein (procedure) Medical Center [code = 708136122] Future Scheduled 1961 COVID-19 Vaccine (1) Eusebio [...] Medica l Center colon (procedure) [code = 688567701] Future Scheduled [address] [facility] Test 00:00:00 malignant neoplasm of Medica [facility] Center colon (procedure) [code = 590434462] Future Scheduled 1956 Sigmoidoscopy [[facility]] Medical Cente r Future Scheduled [address] [facility] 00:00:00 (combo) [code = CT Medical C enter Colonography (combo)] Future Scheduled [address] [facility] [facility] Test 00:00:00 malignant neoplasm of Medica l Center colon (procedure) [code = 852540591] Future Scheduled [address] [facility] Test 00:00:00 malignant neoplasm of Medica l Center colon (procedure) [code = 163855456] Future Scheduled 1956 Sigmoidoscopy [facility] [address] [facility] 00:00:00 (combo) [code = CT Medical C enter Colonography (combo)] Future Scheduled [address] [facility] 00:00:00 malignant neoplasm of Medica l Center colon (procedure) [code = 333899874] Future Scheduled [address] [facility] 00:00:00 malignant neoplasm of Medica [facility] Center colon (procedure) [code = 727641083] Future Scheduled 1956 Sigmoidoscopy [facility]code [facility] [address] [facility] 00:00:00 (combo) [code = CT Medical C enter Colonography (combo)] Future Scheduled [address] [facility] 00:00:00 malignant neoplasm of [facility]ica [facility] Center colon (procedure) [code = 026670246] Future Scheduled [address] [facility] Test 00:00:00 malignant neoplasm of [facility]ica [facility] Center colon (procedure) [code = 683568575] Future Scheduled 1956 Sigmoidoscopy [facility] [address] [facility] 00:00:00 (combo) [code = CT Medical C enter Colonography (combo)] Future Scheduled [address] [facility] 00:00:00 malignant neoplasm of Medica [facility] Center colon (procedure) [code = 350603303] Future Scheduled [address] [facility] 00:00:00 malignant neoplasm of Medica l Center colon (procedure) [code = 287797328] Future Scheduled 1956 Sigmoidoscopy [facility] S[facility]oidoscopy] Medical [facility] r Future Scheduled [address] [facility] 00:00:00 (combo) [code = CT Medical C enter Colonography (combo)] Future Scheduled [address] [facility] 00:00:00 malignant neoplasm of Medica l Center colon (procedure) [code = 976070486] Future Scheduled [address] [facility] 00:00:00 malignant neoplasm of Medica l Center colon (procedure) [code = 299411684] Future Scheduled 1956 Sigmoidoscopy [facility]code [facility] Sigmoidoscopy] Medical Nahomi r Future Scheduled [address] [facility] 00:00:00 (combo) [code = CT Medical C enter Colonography (combo)] Future Scheduled [address] [facility] 00:00:00 malignant neoplasm of Medica l Center colon (procedure) [code = 240616481] Future Scheduled [address] [facility] Test 00:00:00 malignant neoplasm of Medica l Center colon (procedure) [code = 083438549] Future Scheduled 1956 Sigmoidoscopy [facility]code [facility]] [facility] Nahomi arita Future Scheduled 1956 Fluoride Varnish [facility] 00:[facility] = Fluoride Varnish] Future Scheduled 1956 Fluoride Varnish [facility] 00:00:00 = Fluoride Varnish] Encounters Start End Encounter Admission Attending Care Care Encounter Source Date/Time Date/Time Type Type Clinicians Facility Department ID 2022-11-22 Inpatient SHAMAR ORONA [facility] [id number] SLE 17:03:30 2022-11-20 Inpatient SHAMAR ORONA JOSÉ ANTONIO [facility] [id number] SLE 13:35:40 2022-11-18 Inpatient SHAMAR ORONA [facility] [id number] SLE 08:23:04 2022-11-16 Inpatient SHAMAR ORONA [facility] [id number] [facility] 19:46:56 2022-11-16 Inpatient SHAMAR ORONA [facility] [id number] [facility] 19:00:15 2022-10-04 Outpatient [facility] [id number] Common 13:17:01 [id number] [facility] 2022-09-05 [facility] Shamar Michaels [facility] [id number] [facility] 00:00:00 Encounter [facility] 2021-03-27 Emergency [facility] [id number] Univers 20:25:53 ity [facility] 2019-12-24 [id number] [facility] 16:51:00 JOSH 2023-03-16 2023-03-16 Outpatient EL [facility] [id number] [facility]H 00:00:00 00:00:00 2023-03-16 2023-03-16 Outpatient EL [facility] [id number] [facility] 00:00:00 00:00:00 2023-01-12 2023-01-12 Outpatient EL LENTZ, SLE [facility] [id number] [facility]H 10:30:59 10:30:59 QUENTIN 2023-01-12 2023-01-12 Outpatient EL SLEH [facility] [id number] [facility]H 10:30:41 10:30:41 2023-01-05 2023-01-05 Outpatient EL SLEH [facility] [id number] [facility] 00:00:00 00:00:00 2023-01-05 2023-01-05 Outpatient EL SLEH SLEH [id number] [facility]H 00:00:00 00:00:00 2022-12-29 2022-12-29 Outpatient EL SLEH SLEH [id number] [facility]H 00:00:00 00:00:00 2022-12-29 2022-12-29 Outpatient EL SLEH SLEH [id number] SLEH 00:00:00 00:00:00 2022-12-15 2022-12-15 Outpatient EL DAVY [facility] [id number] SLE[facility] 08:16:00 11:13:00 OSBALDO 2022-12-15 2022-12-15 Outpatient TRUONG IRVIN SLE [facility] [id number] [facility] 00:00:00 00:00:00 OSBALDO 2022-12-06 2022-12-06 Outpatient TRUONG IRVIN SLEH SLEH [id number] SLEH 00:00:00 00:00:00 OSBALDO 2022-12-01 2022-12-01 Outpatient EL LUZ MARIA VILLANUEVA SLEH SLEH [id number] SLEH 09:36:11 09:36:11 2022-12-01 2022-12-01 Outpatient EL SLEH SLEH [id number] SLEH 09:35:47 09:35:47 2022 2022 Outpatient EL SLEH SLE [id number] SLEH 08:52:21 08:52:21 2022-11-16 2022-11-24 Inpatient SHAMAR ORONA SLE Transplant [id number] SLEH 16:37:00 14:57:00 2022-11-21 2022-11-21 Outpatient EL SLE SLE [id number] SLEH 00:00:00 00:00:00 2022-11-21 2022-11-21 Outpatient EL SLEH SLE [id number] SLEH 00:00:00 00:00:00 2022-11-16 2022-11-16 Outpatient EL SLE SLE [id number] SLEH 09:54:35 09:54:35 2022-11-14 2022-11-14 Outpatient EL SLEH SLE [id number] SLEH 00:00:00 00:00:00 2022-11-14 2022-11-14 Outpatient EL SLE SLE [id number] SLEH 00:00:00 00:00:00 2022-11-09 2022-11-09 Outpatient TRUONG SHAMAR MICHAELS SLE [id number] SLEH 10:41:54 23:59:00 2022-11-09 2022-11-09 Outpatient TRUONG MICHAELS [facility] [id number] SLEH 10:41:39 09:59:00 2022-11-09 2022-11-09 Outpatient EL SLE SLE [id number] SLEH 09:32:11 09:32:11 2022-11-02 2022-11-02 Outpatient EL SLEH SLEH [id number] SLEH 08:57:36 08:57:36 2022-10-26 2022-10-26 Outpatient EL SLEH SLEH [id number] SLEH 09:35:52 09:35:52 2022-10-17 2022-10-17 Outpatient EL LENTZ, SLE SLEH [id number] SLEH 10:15:39 10:15:39 QUENTIN 2022-10-17 2022-10-17 Outpatient EL SLEH SLEH [id number] SLEH 10:14:57 10:14:57 2022-10-06 2022-10-06 Outpatient EL SHAMAR MICHAELS SLE SLE [id number] SLEH 10:12:53 10:12:53 2022-10-06 2022-10-06 Outpatient EL SLEH SLEH [id number] SLEH 10:12:42 10:12:42 2022-09-29 2022-09-29 Outpatient EL OTILIALanaTAMMIDELISA SLE SLEH [id number] SLEH 10:25:59 10:25:59 2022-09-29 2022-09-29 Outpatient EL SLEH SLE [id number] SLEH 10:25:34 10:25:34 2022-09-18 2022-09-27 Inpatient ER ANUEL, SLE Transplant [id number] SLEH 16:54:00 18:15:00 KATHRYN 2022-09-22 2022-09-22 Outpatient EL SLEH SLEH [id number] SLEH 00:00:00 00:00:00 2022-09-22 2022-09-22 Outpatient EL SLEH SLEH [id number] SLEH 00:00:00 00:00:00 2022-09-17 2022-09-17 Outpatient EL SLEH SLEH [id number] [facility] 09:28:55 09:28:55 2022-09-17 2022-09-17 Orders Shamar Orona [facility] [id number] [facility] 08:15:00 08:30:00 Only [facility] 2022-09-17 2022-09-17 Telephone JADEN Irvin [id number] [facility] 00:00[facility]00 00:00:00 [facility] 2022-09-16 2022-09-16 Telephone Dewayne [facility] [id number] 00:00[facility]00 00:00:00 [facility] 2022-09-16 2022-09-16 Documentat Mike Lancaster [facility] [id number] [facility] 00:00:00 [facility] 2022-09-16 2022-09-16 [facility] [id number] [facility] 00:[facility]00 00:00:00 [facility] 2022-09-16 2022-09-16 Telephone Hipolito [facility] [id number] 00:00:00 00:00:00 [facility] 2022-09-15 2022-09-15 Outpatient SHAMAR ORONA [facility] [id number] SLE 09:49:17 09:49:17 2022-09-15 2022-09-15 Outpatient [facility] [id number] SLE 09:49:03 09:49:03 2022-09-15 2022-09-15 Follow-Up Shamar Michaels [facility] [id number] 08:00:00 08:15:00 [facility] 2022-09-15 2022-09-15 Orders Shamar Orona [facility] [id number] 07:10:00 07:20:00 Only [facility] 2022-09-14 2022-09-14 Documentat Esteban [facility] [id number] 00:00:00 00:00:00 devon Jessenia Young [facility] 2022-09-12 2022-09-12 Telephone Maureen [facility] [id number] 00:00:00 00:00:00 Shahnaz Singh [facility] 2022-09-12 2022-09-12 Social Shaffer [facility] [id number] 00:00:00 00:00:00 Work [facility] 2022-09-12 2022-09-12 Documentat Ramirez [facility] [id number] [id number] 00:00:00 00:00:00 ion [facility] 2022-09-05 2022-09-11 Inpatient ER SHAMAR MICHAELS [facility] Transplant 20 [id number] [facility] 18:31:00 14:00:00 2022-09-11 2022-09-11 Refill Shamar Michaels [facility] [id number] 00:00:00 00:00:00 [facility] 2022-09-09 2022-09-09 Surgery Davy [facility] [id number] 11:00:00 12:30:00 Osbaldo [facility] 2022-09-09 2022-09-09 Anesthesia Rohith Walker [facility] [id number] 11:13:00 12:17:[address] [facility] 2022-09-08 2022-09-08 Outpatient EL [facility] SLE [id number] [facility] 00:00:00 00:00:00 2022-09-08 2022-09-08 Outpatient EL [facility] [id number] [facility] 00:00:00 00:00:00 2022-09-08 2022-09-08 Toni Reddy [facility] [id number] 00:00:00 00:00:00 Only Shahnaz Singh [facility] 2022-09-06 2022-09-06 Abstract Nona [facility] [id number] 00:00:00 00:00:00 [facility] 2022-09-06 2022-09-[address] [facility] [id number] [facility] 00:[facility]00 00:00:00 [facility] 2022-09-05 2022-09-05 Outpatient EL [facility] [id number] [facility] 09:00:20 09:00:20 2022-09-05 2022-09-05 Orders Shamar Orona [facility] [id number] 07:50:00 08:00:00 Only [facility] 2022-09-05 2022-09-05 [facility] [id number] 00:00:00 00:00:00 [facility] 2022-09-05 2022-09-05 [facility]phone [facility] [id number] 00:00:00 00:00:00 [facility] 2022-09-05 2022-09-05 [facility] [id number] 00:00:00 00:00:00 Only [facility] 2022-09-04 2022-09-04 [facility] [id number] 00:00:00 00:00:00 [facility] 2022-09-03 2022-09-03 [facility] [id number] 00:00:00 00:00:00 [facility] 2022-09-02 2022-09-02 Documentcarla Orellana [facility] [id number] 00:00:00 00:00:00 devon Ruelas Hannah [facility] 2022-09-02 2022-09-02 Telephone [facility] [id number] 00:00:00 00:00:00 [facility] 2022-09-02 2022-09-02 Orders [facility] [id number] 00:00:00 00:00:00 Only [facility] 2022-09-02 2022-09-02 Telephone [facility] [id number] 00:00:00 00:00:00 [facility] 2022-09-01 2022-09-01 Outpatient TRUONG ARMANDO, [facility] SLE [id number] [facility] 10:04:47 10:04:47 CHRISTINE 2022-09-01 2022-09-01 Outpatient EL SLE SLE [id number] [facility] 10:04:37 10:04:37 2022-09-01 2022-09-01 Follow-Up Shamar Michaels Alan [facility] [id number] 09:30:00 09:45:00 Christine Armando [facility] 2022-09-01 2022-09-01 Orders EL Xenia Shamar [facility] [id number] 08:15:00 08:25:00 Only [facility] 2022-09-01 2022-09-01 Documentat [facility] [id number] 00:00:00 00:00:00 devon Jessenia Hannah [facility] 2022-08-31 2022-08-31 Outpatient [facility] [id number] [facility] 00:00:00 00:00:00 2022-08-31 2022-08-31 Outpatient PADMINI, [facility] [id number] SLE 00:00:00 00:00:00 AMBERLY 2022-08-31 2022-08-31 Documentat [facility] [id number] 00:00:00 00:00:00 devon Young [facility] 2022-08-30 2022-08-30 Orders Maureen [facility] [id number] 00:00:00 00:00:00 Only [facility] 2022-08-30 2022-08-30 Telephone Edmund [facility] [id number] 00:00:00 00:00:00 [facility] 2022-08-30 2022-08-30 Telephone Maureen [facility] [id number] 00:00:00 00:00:00 [facility] 2022-08-29 2022-08-29 Outpatient [facility] SLE [id number] [facility] 09:59:03 09:59:2022-08-29 2022-08-29 Orders Shamar Orona [facility] [id number] 09:10:00 09:15:00 Only [facility] 2022-08-29 2022-08-29 Telephone Edmund [facility] [id number] 00:00:00 00:00:00 [facility] 2022-08-29 2022-08-29 Telephone Edmund [facility] [id number] 00:00:00 00:00:00 [facility] 2022-08-29 2022-08-29 Telephone Edmund [facility] [id number] 00:00:00 00:00:00 [facility] 2022-08-29 2022-08-29 Telephone Maureen [facility] [id number] 00:00:00 00:00:00 [facility] 2022-08-25 2022-08-25 [facility] [id number] SLE 09:59:38 09:59:38 [facility] 2022-08-25 2022-08-25 Outpatient SLE [facility] [id number] [facility] 09:31:58 09:31:58 2022-08-25 2022-08-25 Follow-Up Shamar Michaels [facility] [id number] 08:00[facility]00 08:15:00 [facility] 2022-08-25 Orders Shamar Michaels [facility] [id number] 07:30:00 07:40:00 Only [facility] 2022-08-25 2022-08-25 Orders Esteban [facility] [id number] 00:00:00 00:00:00 Only Jessenia Young [facility] 2022-08-25 2022-08-25 Telephone Maureen [facility] [id number] 00:00:00 00:00:00 [facility] 2022-08-24 2022-08-24 Telephone Edmund [facility] [id number] 00:00:00 00:00:00 [facility] 2022-08-24 2022-08-24 Orders Al [facility] [id number] 00:00:00 00:00:00 Only [facility] 2022-08-24 2022-08-24 Telephone Reddy [facility] [id number] 00:00:00 00:00:00 [facility] 2022-08-24 2022-08-24 Telephone Edmund [facility] [id number] 00:00:00 00:00:00 [facility] 2022-08-17 2022-08-23 Inpatient SHAMAR MICHAELS [facility] Surgery [id number] [facility] 11:02:00 17:42:00 2022-08-23 2022-08-23 Documentat Sirena [facility] [id number] 00:00:00 00:00:00 ion [facility] 2022-08-23 2022-08-23 Orders Maureen [facility] [id number] 00:00:00 00:00:00 Only [facility] 2022-08-22 2022-08-22 Orders Maureen [facility] [id number] 00:00:00 00:00:00 Only [facility] 2022-08-19 2022-08-19 Documentat Ramirez [facility] [id number] 00:00:00 00:00:00 ion [facility] 2022-08-17 2022-08-18 Surgery Shamar Michaels [facility] [id number] 17:00:00 00:31:00 [facility] 2022-08-17 2022-08-18 Anesthesia Marion Villarreal [facility] [id number] 17:27:00 00:23:00 Event Rudy Lincoln [facility] 2022-08-18 [id number] 00:00:00 00:00:00 [facility] 2022-08-18 2022-08-18 Documentcarla [facility] [id number] 00:00:00 00:00:00 [facility] 2022-08-17 2022-08-17 Outpatient [facility] [id number] SLE 00:00:00 00:00:00 2022-08-17 2022-08-17 Outpatient TRUONG WASHINGTON [facility] [id number] SLE 00:00:00 00:00:00 [facility] 2022-08-17 2022-08-17 Outpatient TRUONG WASHINGTON [facility] [id number] SLE 00:00:00 00:00:00 [facility] 2022-08-17 2022-08-[address] [facility] [id number] [facility] 00:[facility]00 00:00:00 [facility] 2022-08-17 2022-08-17 [facility] [id number] 00:00:00 00:00:00 [facility] 2022-08-17 2022-08-17 [facility] [id number] 00:00:00 00:00:00 Only Christine [facility] 2022-08-02 2022-08-02 Office [facility], 1.2.840.1 [id number] Methodi 12:00:00 12:00:00 Visit Kostas Castanon 29001.1.[address] 3.430.2.7 Hospit a .3.361865 l 8 2022-08-02 2022-08-02 Office [facility], 1.2.840.1 [id number] Methodi 12:00:00 12:00:00 Visit Sayed F. 37265.1.[address] 3.430.2.7 Hospit a .3.041654 l .8 2022-08-02 2022-08-02 Outpatient [facility] [id number] [place] 00:00:00 00:00:[address] 2022-08-02 2022-08-02 Travel 1.2.840.1 1.2.229.994 4602 [id number] Methodi 00:00:00 00:00:[address] 3.430.2.7 0.2.7.3.698 Ho spita .3.884779 084.8 l .8 2022-08-02 2022-08-02 Travel 1.2.840.1 1.2.937.890 8663 [id number] Methodi 00:00:00 00:00:[address] 3.430.2.7 0.2.7.3.698 Ho spita .3.418404 084.8 l .8 2022-07-26 2022-07-26 Travel 1.2.840.1 1.2.085.657 6930 304502 Methodi 00:00:00 00:00:[address] 3.430.2.7 0.2.7.3.698 Ho spita .3.324067 084.8 l .8 2022-07-26 2022-07-26 Travel 1.2.840.1 1.2.005.469 9891 [id number] Methodi 00:00:00 00:00:[address] 3.430.2.7 0.2.7.3.698 Ho spita .3.599102 084.8 l .8 2022-07-19 2022-07-19 Travel 1.2.840.1 1.2.558.515 3366 170472 Methodi 00:00:00 00:00:[address] 3.430.2.7 0.2.7.3.698 Ho spita .3.756046 084.8 l .8 2022-07-19 2022-07-19 Travel 1.2.840.1 1.2.815.293 8625 319084 Methodi 00:00:00 00:00:[address] 3.430.2.7 0.2.7.3.698 Ho spita .3.804232 084.8 l .8 2022-07-15 2022-07-15 Travel 1.2.840.1 1.2.697.828 0221 363520 Methodi 00:00:00 00:00:[address] 3.430.2.7 0.2.7.3.698 Ho spita .3.544413 084.8 l .8 2022-07-15 2022-07-15 Travel 1.2.840.1 1.2.477.477 4875 [id number] Methodi 00:00:00 00:00:[address] 3.430.2.7 0.2.7.3.698 Ho spita .3.355537 084.8 l .8 2022-06-08 2022-06-08 Documentat Idris [facility] [id number] 00:00:00 00:00:00 [facility] Eddie Mendiola [facility] 2022-06-08 2022-06-08 Documentat Klaus [facility] [id number] 00:00:00 00:00:00 [facility] Fabiana Calderon [facility] 2022-06-02 2022-06-02 [facility]at [facility] [id number] 00:00:00 00:00:00 [facility] 2022-06-02 2022-06-02 Documentat [facility] [id number] 00:00:00 00:00:00 [facility] 2022-06-01 2022-06-01 Outpatient TRUONG WASHINGTON SLECarmine SLE [id number] [facility]H 09:46:56 11:05:10 [facility] 2022-06-01 2022-06-01 Office Padmini [facility] [id number] 09:30:00 11:05:10 Visit [facility] 2022-06-01 2022-06-01 Orders Idris [facility] [id number] 00:00:00 00:00:00 Only [facility] 2022-05-18 2022-05-18 Outpatient TRUONG WASHINGTON SLEH SLE [id number] SLEH 10:14:54 23:59:00 [facility] 2022-05-18 2022-05-18 [facility] [id number] 10:14:54 23:59:00 Encounter [facility] 2022-05-18 2022-05-18 Outpatient TRUONG WASHINGTON SLE SLE [id number] SLEH 10:14:09 23:59:00 [facility] 2022-05-18 2022-05-18 [facility] [id number] 10:14:09 23:59:00 Encounter [facility] 2022-05-18 2022-05-18 Orders TRUONG Washington [facility] [id number] 10:45:00 10:55:00 Only [facility] 2022-05-18 2022-05-18 Outpatient EL SLEH SLEH [id number] [facility] 09:40:39 09:40:39 2022-05-11 2022-05-11 Outpatient EL SLEH SLEH [id number] [facility] 00:00:00 00:00:00 2022-04-28 2022-04-28 Documentcarla [facility] [id number] 00:00:00 00:00:00 devon [facility] 2022-04-272022-04-27 Outpatient EL SLE SLE [id number] [facility]H 00:00:00 00:00:00 2022-04-27 2022-04-27 [facility] Idris [facility] [id number] 00:00:00 00:00:00 Only [facility] 2022-04-25 2022-04-25 [facility] [id number] 15:00:00 15:00:00 Encounter [facility] 2022-04-25 2022-04-25 [facility] [id number] 14:00:00 14:00:00 Encounter [facility] 2022-04-25 2022-04-25 Outpatient TRUONG WASHINGTON SLE SLE [id number] SLE 00:00:00 00:00:00 [facility] 2022-04-25 2022-04-25 Outpatient TRUONG LAWSONRI SLE SLE [id number] SLE 00:00:00 00:00:00 [facility] 2022-04-25 2022-04-25 Outpatient TRUONG WASHINGTON SLE SLE [id number] SLE 00:00:00 00:00:00 [facility] 2022-04-25 2022-04-25 Documentat Idris [facility] [id number] 00:00:00 00:00:00 ion [facility] 2022-04-12 2022-04-12 Travel 1.2.840.1 1.2.346.161 3280 [id number] Methodi 00:00:00 00:00:[address] 3.430.2.7 0.2.7.3.698 Ho spita .3.789916 084.8 l .8 2022-04-12 2022-04-12 Travel 1.2.840.1 1.2.863.311 8777 [id number] Methodi 00:00:00 00:00:[address] 3.430.2.7 0.2.7.3.698 Ho spita .3.633328 084.8 l .8 2022-04-08 2022-04-08 Outpatient EL SLE SLE [id number] [facility]H 00:00:00 00:00:00 2022-04-08 2022-04-08 Outpatient TRUONG WASHINGTON, SLE SLE [id number] SLE 00:00:00 00:00:00 [facility] 2022-04-08 2022-04-08 Outpatient TRUONG WASHINGTON, [facility] [id number] SLE 00:00:00 00:00:00 [facility] 2022-04-08 2022-04-08 Documentat [facility] [id number] 00:00:00 00:00:00 [facility] 2022-04-08 2022-04-08 Outside [facility] [id number] 00:00:00 00:00:00 Orders [facility] 2022-04-08 2022-04-08 Outside [facility] [id number] 00:00:00 00:00:00 Orders [facility] 2022-04-07 2022-04-07 Documentat [facility] [id number] [id number] 00:00:00 00:00:00 [facility] 2022-04-06 2022-04-06 Documentat [facility] [id number] [id number] 00:00:00 00:00:00 [facility] 2022-04-05 2022-04-05 Travel 1.2.840.1 1.2.223.936 4234 [id number] Methodi 00:00:00 00:00:[address] 3.430.2.7 0.2.7.3.698 Ho spita .3.276966 084.8 l .8 2022-04-05 2022-04-05 Travel 1.2.840.1 1.2.234.327 6029 [id number] Methodi 00:00:00 00:00:[address] 3.430.2.7 0.2.7.3.698 Ho spita .3.908536 084.8 l .8 2022-03-29 2022-03-29 Documentat [facility] [id number] [id number] 00:00:00 00:00:00 ion [facility] 2022-03-28 2022-03-28 Travel 1.2.840.1 1.2.947.227 5099 [id number] Methodi 00:00:00 00:00:[address] 3.430.2.7 0.2.7.3.698 Ho spita .3.165963 084.8 l .8 2022-03-28 2022-03-28 Travel 1.2.840.1 1.2.731.535 2465 [id number] Methodi 00:00:00 00:00:[address] 3.430.2.7 0.2.7.3.698 Ho spita .3.115303 084.8 l .8 2022-03-23 2022-03-23 Outpatient EL SLE SLE [id number] [facility]H 00:00:00 00:00:00 2022-03-18 2022-03-18 [facility]at [facility] [id number] 00:00:00 00:00:00 devon [facility] 2022-03-09 2022-03-09 Outpatient EL SLE SLE [id number] [facility]H 00:00:00 00:00:00 2022-03-09 2022-03-09 Outpatient EL KHADERI, SLE SLE [id number] [facility] 00:00:00 00:00:00 [facility] 2022-03-09 2022-03-09 Outpatient EL KHADERI, SLEH SLEH [id number] SLE 00:00:00 00:00:00 AMBER[facility] 2022-03-04 2022-03-04 Abstract Myke [facility] [id number] 00:00:00 00:00:00 [facility] 2022-02-28 2022-02-28 Office Kostas Mora 1.2.840.1 [id number] Methodi 09:15:00 11:16:48 Visit Joseph Aaronemma Christianson 99253.1.[address] 3.430.2.7 Hospit a .3.383744 l .8 2022-02-28 2022-02-28 Office Kostas Mora 1.2.840.1 [id number] Methodi 09:15:00 11:16:48 Visit Zehra Ruiz 58332.1.[address] 3.430.2.7 Hospit a .3.030737 l .8 2022-02-28 2022-02-28 Travel 1.2.840.1 1.2.673.267 2186 [id number] Methodi 00:00:00 00:00:[address] 3.430.2.7 0.2.7.3.698 Ho spita .3.612906 084.8 l .8 2022-02-28 2022-02-28 Travel 1.2.840.1 1.2.692.166 7964 024750 Methodi 00:00:00 00:00:[address] 3.430.2.7 0.2.7.3.698 Ho spita .3.575935 084.8 l .8 2022-02-25 2022-02-25 Travel 1.2.840.1 1.2.035.828 8797 043549 Methodi 00:00:00 00:00:[address] 3.430.2.7 0.2.7.3.698 Ho spita .3.214217 084.8 l .8 2022-02-25 2022-02-25 Documentat Idris [facility] [id number] 00:00:00 00:00:00 [facility] 2022-02-25 2022-02-25 Travel 1.2.840.1 1.2.197.428 4167 [id number] Methodi 00:00:00 00:00:[address] 3.430.2.7 0.2.7.3.698 Ho spita .3.151392 084.8 l .8 2022-02-22 2022-02-22 Travel 1.2.840.1 1.2.115.888 3583 558946 Methodi 00:00:00 00:00:[address] 3.430.2.7 0.2.7.3.698 Ho spita .3.986106 084.8 l .8 2022-02-22 2022-02-22 Travel 1.2.840.1 1.2.061.006 2219 [id number] Methodi 00:00:00 00:00:[address] 3.430.2.7 0.2.7.3.698 Ho spita .3.937042 084.8 l .8 2022-02-16 2022-02-16 Travel 1.2.840.1 1.2.273.120 3794 [id number] Methodi 00:00:00 00:00:[address] 3.430.2.7 0.2.7.3.698 Ho spita .3.564309 084.8 l .8 2022-02-16 2022-02-16 Travel 1.2.840.1 1.2.912.326 8409 [id number] Methodi 00:00:00 00:00:[address] 3.430.2.7 0.2.7.3.698 Ho spita .3.316026 084.8 l .8 2022-02-01 2022-02-01 [facility] [id number] [facility] 00:[facility]00 00:00:00 [facility] 2022-01-21 2022-01-21 [facility] [id number] [id number] [facility] [address] 00:00:00 00:00:00 [facility] 2022-01-18 2022-01-18 [facility] [id number] [id number] 00:00:00 00:00:00 devon [facility] 2022-01-17 2022-01-17 [facility] [id number] [id number] 00:00:00 00:00:00 [facility] 2022-01-13 2022-01-13 Document [facility] [id number] [id number] 00:00:00 00:00:00 [facility] 2022-01-10 2022-01-10 [facility] [id number] 00:00:00 00:00:00 [facility] 2022-01-07 2022-01-07 [facility] [id number] 00:00:00 00:00:00 [facility] 2022-01-04 2022-01-04 Outpatient [facility] SLE [id number] SLE 11:53:22 23:59:00 [facility] 2022-01-04 2022-01-04 [facility] Padmini [facility] [id number] 11:53:22 23:59:00 Encounter [facility] 2021-12-30 2021-12-30 Travel 1.2.840.1 1.2.462.026 2095 [id number] Methodi 00:00:00 00:00:[address] 3.430.2.7 0.2.7.3.698 Ho spita .3.869866 084.8 l .8 2021-12-26 2021-12-26 Emergency [facility] [id number] Univers 15:39:00 18:19:00 FELISHA schmitt [facility] 2021-12-26 2021-12-26 [facility] 1.2.666.743 [id number] [id number] Univers 15:39:00 18:19:00 Felisha Calderon CHELSEYJARROD 350.1.13.10 i [facility] 4.2.7.2.686 [facility] [id number] [place] [address] [place] 2021-12-23 2021-12-23 Documentat Idris [facility] [id number] 00:00:00 00:00:00 [facility] 2021-12-23 2021-12-23 [facility] [id number] 00:00:00 00:00:00 Only [facility] 2021-12-22 2021-12-22 Office TRUONG [place] [facility] [id number] 11:00:00 11:36:33 Visit [facility] 2021-12-22 2021-12-22 Outpatient TRUONG [place] [facility] SLE [id number] SLE 10:31:24 11:36:33 [facility] 2021-12-22 2021-12-22 Abstract Padmini [facility] [id number] 00:00:00 00:00:00 [facility] 2021-12-22 2021-12-22 Documentat Ramirez [facility] [id number] [id number] 00:00:00 00:00:00 devon [facility] 2021-12-21 2021-12-21 Toni Steinberg [facility] [id number] 00:00:00 00:00:00 Only [facility] 2021-12-21 2021-12-21 Orders [facility] [id number] 00:00:00 00:00:00 Only [facility] 2021-12-20 2021-12-20 Documentcarla [facility] [id number] [id number] 00:00:00 00:00:00 [facility] 2021-12-16 2021-12-16 Documentat [facility] [id number] 00:00:00 00:00:00 [facility] 2021-12-09 2021-12-09 Document [facility] [id number] 00:00:00 00:00:00 [facility] 2021-12-08 2021-12-08 Outpatient [facility] SLE [id number] [facility] 00:00:00 00:00:00 2021-12-06 2021-12-06 Outpatient TRUONG [place], [facility] [id number] [facility] 09:26:33 23:59:00 [facility] 2021-12-06 2021-12-06 [facility] [id number] [facility] 09:26:33 23:59:00 Encounter [facility] 2021-12-06 2021-12-06 Orders TRUONG [place] [facility] [id number] 13:40:00 13:50:00 Only [facility] 2021-12-06 2021-12-06 Outpatient EL [facility] [id number] [facility] 13:38:35 13:38:35 2021-12-06 2021-12-06 Outpatient TRUONG WASHINGTON SLE [facility] [id number] [facility] 09:25:54 09:25:54 [facility] 2021-12-06 2021-12-06 [facility] [id number] 09:25:54 09:25:54 Encounter [facility] 2021-12-06 2021-12-06 Outpatient ROLA GREENFIELD SLE [id number] [facility] 09:25:37 09:25:37 [facility] 2021-12-06 2021-12-06 [facility] Padmini [facility] [id number] 09:25:37 09:25:37 Encounter [facility] 2021-12-06 2021-12-06 [facility] [id number] 00:00:00 00:00:00 [facility] 2021-11-25 2021-11-25 Outpatient TRUONG SLEH [facility]H [id number] [facility] 00:00:00 00:00:00 2021-11-25 2021-11-25 Outpatient TRUONG WASHINGTON SLE [facility] [id number] [facility] 00:00:00 00:00:00 [facility] 2021-11-25 2021-11-25 Outpatient TRUONG WASHINGTON SLE [facility] [id number] [facility] 00:00:00 00:00:00 [facility] 2021-11-25 2021-11-25 Outpatient TRUONG WASHINGTON SLE [facility] [id number] [facility] 00:00:00 00:00:00 [facility] 2021-11-08 2021-11-08 Document [facility] [id number] 00:00:00 00:00:00 [facility] 2021-11-08 2021-11-08 Documentat [facility] [id number] 00:00:00 00:00:00 [facility] 2021-10-22 2021-10-22 Outpatient DMG MAXIMINO [id number] [facility] 09:00:00 09:00:00 [id number] [facility] 2021-09-30 2021-09-30 [facility]at [facility] [id number] 00:00:00 00:00:00 [facility] 2021-09-28 2021-09-28 Telephone Albaro [facility] [id number] [facility] 00:00:00 00:00:00 [facility] 2021-09-08 2021-09-08 Outpatient JOSÉ ANTONIO GREENFIELD SLE [id number] SLE 09:55:52 10:29:39 [facility] 2021-09-08 2021-09-08 Office Evelynjaydenfaith [facility] [id number] 09:30:00 10:29:39 Visit [facility] 2021-09-08 2021-09-08 Orders Idris [facility] [id number] 00:00:00 00:00:00 Only [facility] 2021-09-06 2021-09-06 Documentcarla Guzmán [facility] [id number] 00:00:00 00:00:00 ion [facility] 2021-09-02 2021-09-02 Documentcarla [facility] [id number] 00:00:00 00:00:00 ion [facility] 2021-08-30 2021-08-30 Documentcarla Guzmán [facility] [id number] 00:00:00 00:00:00 ion [facility] 2021-08-30 2021-08-30 Documentcarla Steinberg [facility] [id number] 00:00:00 00:00:00 ion [facility] 2021-08-26 2021-08-26 Outpatient JOSÉ ANTONIO GREENFIELD SLE [id number] SLE 08:46:32 23:59:00 [facility] 2021-08-26 2021-08-26 [facility] Evelynjazmín [facility] [id number] 08:46:32 23:59:00 Encounter [facility] 2021-08-26 2021-08-26 Orders TRUONG Washington [facility] [id number] 09:00:00 09:10:00 Only [facility] 2021-08-26 2021-08-26 Outpatient TRUONG W[place], [facility] SLE [id number] [facility] 08:42:22 08:45:00 [facility] 2021-08-26 2021-08-26 [facility] Padmini [facility] [id number] 08:42:22 08:45:00 Encounter [facility] 2021-08-26 2021-08-26 Outpatient EL SLE SLE [id number] [facility] 08:20:55 08:20:55 2021-08-26 2021-08-26 Outpatient EL [facility] [id number] [facility] 00:00:00 00:00:00 2021-08-16 2021-08-16 Rios Guzmán [facility] [id number] 00:00:00 00:00:00 ion [facility] 2021-08-16 2021-08-16 Rios Guzmán [facility] [id number] 00:00:00 00:00:00 ion [facility] 2021-08-05 2021-08-05 Documentcarla Steinberg [facility] [id number] 00:00:00 00:00:00 ion [facility] 2021-08-02 2021-08-02 Toni Steinberg [facility] [id number] 00:00:00 00:00:00 Only [facility] 2021-07-28 2021-07-28 Outpatient TRUONG WASHINGTON [facility] SLE [id number] SLE 09:06:24 09:58:24 [facility] 2021-07-28 2021-07-28 [facility] Evelynjazmín [facility] [id number] 09:00:00 09:58:24 Visit [facility] 2021-07-27 2021-07-27 Rios Guzmán [facility] [id number] 00:00:00 00:00:00 ion [facility] 2021-07-27 2021-07-27 Orders Steinberg, [facility] [id number] 00:00:00 00:00:00 Only [facility] 2021-07-26 2021-07-26 Document [facility] [id number] 00:00:00 00:00:00 [facility] 2021-07-26 2021-07-26 Documentat [facility] [id number] 00:00:00 00:00:00 [facility] 2021-07-14 2021-07-14 Outpatient EL SLEH SLEH [id number] [facility] 00:00:00 00:00:00 2021-07-12 2021-07-12 Documentcarla [facility] RID[facility] [id number] 00:00:00 00:00:00 [facility] 2021-07-07 2021-07-07 Outpatient EL SLEH SLEH [id number] [facility] 00:00:00 00:00:00 2021-07-07 2021-07-07 Documentcarla [facility] [id number] 00:00:00 00:00:00 [facility] 2021-06-28 2021-06-28 Documentcarla [facility]HLAND RID[facility] [id number] 00:00:00 00:00:00 [facility] 2021-06-27 2021-06-27 Petra Reddy [facility] [id number] 00:00:00 00:00:00 [facility] 2021-05-24 2021-05-24 Tamiko Chu GANUBIA 1.2.840.114 [id number] Univers 00:00:00 00:00:00 Pearl VENEGAS [id number] i Kei [id number] Anyi REZA [id number] [address] 2021-05-14 2021-05-14 Documentat Ramirez [facility] [id number] 00:00[facility]00 00:00:00 [facility]-05-13 2021-05-13 Abstract Elsa [facility] [id number] 00:00:00 00:00:00 [facility] 2021-05-12 2021-05-12 Outpatient EL SLE SLE [id number] [facility] 00:00:00 00:00:00 2021-05-10 2021-05-10 Telephone [facility] [id number] 00:00:00 00:00:00 [facility] 2021-05-03 2021-05-03 Documentat [facility] [id number] 00:00:00 00:00:00 ion [facility] 2021-04-29 2021-04-29 Outpatient TRUONG WASHINGTON SLE SLE [id number] [facility] 10:09:55 23:59:00 [facility] 2021-04-29 2021-04-29 [facility] [id number] 10:09:55 23:59:00 Encounter [facility] 2021-04-29 2021-04-[address] [facility] [id number] 12:00:00 12:10:00 Only [facility] 2021-04-29 2021-04-29 Outpatient TRUONG WASHINGTON SLE SLE [id number] [facility] 10:09:10 10:08:00 [facility] 2021-04-29 2021-04-29 [facility] [id number] 10:00:00 10:08:00 Encounter [facility] 2021-04-29 2021-04-29 Outpatient TRUONG WASHINGTON SLE SLE [id number] [facility] 09:35:14 09:59:00 [facility] 2021-04-29 2021-04-29 [facility] [id number] 09:35:14 09:59:00 Encounter [facility] 2021-04-29 2021-04-29 Outpatient TRUONG WASHINGTON [facility] [id number] SLE 09:35:00 09:34:00 [facility] 2021-04-29 2021-04-29 [facility] [id number] 09:00:00 09:34:00 Encounter [facility] 2021-04-29 2021-04-29 Outpatient TRUONG [facility] [id number] SLE 08:33:09 08:33:09 2021-04-29 2021-04-29 Outpatient PADMINI [facility] [id number] SLE 00:00:00 00:00:00 [facility] 2021-04-02 2021-04-02 [place] [id number] Univers 00:00:00 00:00:00 Pearl VENEGAS 350.1.13.10 i ty of [place] [id number] [facility] [phone] Ks dical [facility] 044 [facility] 2021-04-01 2021-04-01 Emergency X [facility] ERT [id number] Univers 13:07:00 15:37:00 RAYA schmitt [facility] 2021-04-01 2021-04-01 Emergency [facility] [id number] Univers 13:07:00 15:37:00 Raya VENEGAS 350.1.13.10 i ty of [place] [id number] [facility] [phone] [facility] 084 [place] 2021-03-18 2021-03-18 Toni [facility] [id number] 00:00:00 00:00:00 Only Eddie Mendiola [facility] 2021-03-16 2021-03-16 [facility] 1.2.840.114 [id number] Univers 00:00:00 00:00:00 Pearl Venegas 350.1.13.10 [phone] [place] n[place] 044 [facility] 2021-03-15 2021-03-15 [facility] 1.2.840.114 [id number] Univers 00:00:00 00:00:00 Pearl Venegas 350.1.13.10 i [place] [id number] [phone] [place] dical nal 044 [facility] 2021-03-12 2021-03-[address] [facility] [id number] 12:16:00 15:05:00 Encounter [facility] 2021-03-12 2021-03-12 Outpatient [facility] Rad[facility] [id number] [id number] SLE 06:21:33 15:05:00 [facility] 2021-03-12 2021-03-12 Abstract [facility] [id number] 00:00:00 00:00:00 [facility] 2021-03-10 2021-03-10 Documentat [facility] [id number] 00:00:00 00:00:00 ion [facility] 2021-03-10 2021-03-10 Toni More [facility] [id number] 00:00:00 00:00:00 Only Anne-Marie [facility] 2021-02-23 2021-02-[address] [facility] [id number] 09:28:20 23:59:00 Encounter [facility] 2021-02-23 2021-02-23 Outpatient PADMINI [facility] [id number] SLE 00:00:00 23:59:00 [facility] 2021-02-23 2021-02-23 Outpatient SLEH SLEH [id number] [facility]H 10:02:57 10:02:57 2021-02-23 2021-02-23 Outside Dipesh [facility] [id number] 00:00:00 00:00:00 Orders [facility] 2021-02-05 2021-02-05 Outpatient Juan J GUIDRY [facility] [id number] Univers 10:50:00 10:50:00 TAM schmitt [facility] 2021-02-05 2021-02-05 Imm/Inj Nurse, Adc Pob Immunization [facility] 1.2.840.114 [id number] Univers 10:46:45 10:47:11 Visit Tam Guidry 350.1.13 .10 [facility] [id number] Anyi Reza [phone] Ks dical [address] 2021-02-04 2021-02-04 Documentat Ramirez [facility] [id number] [id number] 00:00:00 00:00:00 ion [facility] 2021-02-04 2021-02-04 Documentat Ramirez [facility] [id number] [id number] 00:00:00 00:00:00 ion [facility] 2021-02-04 2021-02-04 Documentat Ramirez [facility] [id number] [id number] 00:00:00 00:00:00 ion [facility] 2021-02-03 2021-02-03 Office Padmini [facility] [id number] 10:00:00 10:30:00 Visit Amberly Alexandre [facility] 2021-02-03 2021-02-03 Outpatient SLE SLE [id number] [facility] 00:00:00 00:00:00 2021-02-03 2021-02-03 Documentat Albaro [facility] [id number] 00:00:00 00:00:00 devon [facility] 2021-02-03 2021-02-03 Documentat Yohannes [facility] [id number] 00:00:00 00:00:00 edvon [facility] 2021-02-03 2021-02-03 Orders Idris [facility] [id number] 00:00:00 00:00:00 Only [facility] 2021-02-02 2021-02-02 Telephone Ramirez, [facility] [id number] [facility] 00:00:00 00:00:00 [facility] 2021-01-28 2021-01-28 Documentat [facility] [id number] 00:00:00 00:00:00 devon [facility] 2021-01-25 2021-01-25 Documentat [facility] [id number] 00:00:00 00:00:00 devon [facility] 2021-01-21 2021-01-21 [facility] [id number] 10:27:08 23:59:00 Encounter [facility] 2021-01-21 2021-01-21 [facility] [id number] 10:27:00 10:27:00 Encounter [facility] 2021-01-21 2021-01-21 Orders TRUONG Washington [facility] [id number] 09:58:59 10:08:59 Only [facility] 2021-01-21 2021-01-21 Outpatient EVELYNADERI, SLE SLE [id number] [facility] 00:00:00 00:00:00 [facility] 2021-01-21 2021-01-21 Outpatient EVELYNADERI, SLEH SLEH [id number] [facility] 00:00:00 00:00:00 [facility] 2021-01-21 2021-01-21 Outpatient SLE SLE [id number] [facility] 00:00:00 00:00:00 2020-12-30 2020-12-30 Outpatient SLEH SLE [id number] SLE 00:00:00 00:00:00 2020-12-17 2020-12-17 Outpatient EL SLEH SLEH [id number] [facility] 00:00:00 00:00:00 2020-12-17 2020-12-17 Outpatient RENNYRI, SLEH SLEH [id number] [facility] 00:00:00 00:00:00 [facility] 2020-12-17 2020-12-17 Outpatient EVELYNADERI, SLE SLE [id number] [facility] 00:00:00 00:00:00 [facility] 2020-12-02 2020-12-02 Documentat Emil, [facility] [id number] [facility] 00:[facility]:00 00:00:00 ion [facility] 2020-11-26 2020-11-26 [facility] Padmini, [facility] [id number] [facility] [facility] 13:14:00 18:00:00 Encounter [facility] 2020-11-26 2020-11-26 Outpatient SLE SLE [id number] SLE 00:00:00 00:00:00 2020-11-18 2020-11-18 Abstract Yohannes, [facility] [id number] 00:00:00 00:00:00 [facility] 2020-11-16 2020-11-16 Documentcarla Guzmán, [facility] [id number] 00:00:00 00:00:00 ion [facility] 2020-11-16 2020-11-16 Telephone Emil, [facility] [id number] 00:00:00 00:00:00 [facility] 2020-11-10 2020-11-10 Toni Steinberg [facility] [id number] 00:00:00 00:00:00 Only [facility] 2020-11-05 2020-11-05 Documentat Ramirez, [facility] [id number] 00:00:00 00:00:00 ion [facility] 2020-11-04 2020-11-04 Office System, [facility] [id number] 09:38:44 10:38:44 Visit Provider [facility] 2020-11-04 2020-11-04 Outpatient EL SLE SLE [id number] [facility] 00:00:00 00:00:00 2020-10-28 2020-10-28 Office TRUONG Washington, [facility] [id number] 08:37:21 10:38:34 Visit Amberly [facility]re [facility] 2020-10-28 2020-10-28 Outpatient EL SLE SLE [id number] [facility] 00:00:00 00:00:00 2020-10-28 2020-10-28 Outpatient SLE SLE [id number] [facility] 00:00:00 00:00:00 2020-10-28 2020-10-28 Telephone [facility] [id number] 00:00:00 00:00:00 [facility] 2020-10-28 2020-10-28 Documentat [facility] [id number] 00:00:00 00:00:00 devon [facility] 2020-10-27 2020-10-27 Telephone [facility] [id number] 00:00:00 00:00:00 [facility] 2020-10-21 2020-10-21 Outpatient [facility] [id number] [facility] 00:00:00 00:00:00 2020-10-21 2020-10-21 [facility] 1.2.840.114 [id number] [facility] 00:00:00 00:00:00 Pearl Venegas 350.1.13.10 aung Hendricks [id number] Anyi Reza [id number] Ks dic[address] 2020-10-20 2020-10-20 Toni Steinberg [facility] [id number] 00:00:00 00:00:00 Only Eddie Mendiola [facility] 2020-10-19 2020-10-19 Telephone Albaro [facility] [id number] 00:00:00 00:00:00 [facility] 2020-10-19 2020-10-19 Documentat [facility] [id number] 00:00:00 00:00:00 devon [facility] 2020-10-15 2020-10-15 Documentat [facility] [id number] 00:00:00 00:00:00 devon [facility] 2020-10-14 2020-10-14 Telemedici [facility] 1.2.840.114 [id number] Univers 11:21:55 11:27:44 ne Visit Pearl Venegas 350.1.13.10 [facility] [id number] [phone] [place] dical [address] 2020-10-14 2020-10-14 Outpatient R [facility] [id number] Univers 09:20:00 09:20:00 PEARL schmitt [facility] 2020-10-13 2020-10-13 Refill [facility] 1.2.840.114 [id number] Univers 00:00:00 00:00:00 Pearl Venegas 350.1.13.10 i ty [facility] [id number] [phone] [place] dical nal [address] [place] [address] 2020-10-12 2020-10-12 Documentat Idris [facility] [id number] 00:00:00 00:00:00 devon Mendiola [facility] 2020-10-08 2020-10-08 [facility] Padmini [facility] [id number] 09:30:00 23:59:00 Encounter Amberly Alexandre [facility] 2020-10-08 2020-10-08 Orders TRUONG Washington, [facility] [id number] 10:50:16 11:05:16 Only [facility] 2020-10-08 2020-10-08 [facility] Padmini, [facility] [id number] 08:45:00 09:29:00 Encounter [facility] 2020-10-08 2020-10-08 Outpatient RENNYRI, SLEH SLEH [id number] [facility] 00:00:00 00:00:00 [facility] 2020-10-08 2020-10-08 Outpatient TRUONG W[place], SLEH SLEH [id number] [facility] 00:00:00 00:00:00 [facility] 2020-10-08 2020-10-08 Outpatient SLEH SLEH [id number] [facility] 00:00:00 00:00:00 2020-10-08 2020-10-08 Outpatient TRUONG WASHINGTON, SLE SLE [id number] [facility] 00:00:00 00:00:00 [facility] 2020-10-08 2020-10-08 Outpatient PADMINI, SLEH SLEH [id number] [facility] 00:00:00 00:00:00 [facility] 2020-10-08 2020-10-08 Outpatient PADMINI, SLEH SLE [id number] [facility] 00:00:00 00:00:00 [facility] 2020-10-08 2020-10-08 Orders Steinberg, [facility] [id number] [facility] 00:00:00 00:00:00 Only [facility] 2020-09-21 2020-09-21 Orders [facility] [id number] 00:00:00 00:00:00 Only [facility] 2020-09-11 2020-09-11 Telephone Ruba [facility] [id number] 00:00:00 00:00:00 [facility] 2020-09-21 2020-09-10 Inpatient Liang, [facility] END[facility] [id number] 07:00:00 11:10:[address] [place] [address] 2020-09-10 2020-09-10 Documentat Ramirez [facility] [id number] 00:00:00 00:00:00 devon [facility] 2020-09-03 2020-09-03 Documentat Mauricio [facility] [id number] 00:00:00 00:00:00 devon [facility] 2020-09-02 2020-09-02 Documentat Emil [facility] [id number] [facility]:00[facility]00 00:00:00 [facility] 2020-09-02 2020-09-02 Telephone Iker [facility] [id number] 00:00:00 00:00:00 [facility] 2020-09-01 2020-09-01 [facility] NiTiny [facility] [id number] 10:00:00 23:59:00 [facility] 2020-09-01 2020-09-01 Follow-Up TRUONG Yeh [facility] [id number] 09:48:56 10:18:56 [facility] 2020-09-01 2020-09-01 Outpatient [facility] [id number] SLE 00:00:00 00:00:00 2020-09-01 2020-09-01 Outpatient JOSE FRANCISCO WHITEHEAD [facility] [id number] [facility] 00:00:00 00:00:00 2020-09-01 2020-09-01 Telephone Iker [facility] [id number] 00:00:00 00:00:00 [facility] 2020-09-01 2020-09-01 Documentcarla Martínez [facility] [id number] 00:00:00 00:00:00 devon [facility] 2020-08-31 2020-08-31 Telephone Emil [facility] [id number] [facility] 00:00:00 00:00:00 [facility] 2020-08-19 2020-08-19 Emergency [facility] 1.2.840.114 [id number] 07:35:00 10:07:00 Wendy Venegas [id number] [place] 4.2.7.2.686 [place] [phone] [facility] 2020-08-19 2020-08-19 Emergency [facility] 1.2.840.114 [id number] [facility] 07:35:00 10:07:00 Wendy Venegas [id number] ity of [place] 4.2.7.2.686 [facility] [place] [phone] [address] 2020-08-19 2020-08-19 Emergency [facility] [id number] [facility] 07:35:00 10:07:00 WENDY schmitt [facility] 2020-08-19 2020-08-19 Orders Doctor LICONA 1.2.840.114 [id number] 00:00:00 00:00:00 Only Unassigned, TOY 350.1.13.10 [employer] [facility] 4.2.7.2.686 [id number] 2020-08-19 2020-08-19 Orders Doctor SHAMAR 1.2.840.114 [id number] [facility] 00:00:00 00:00:00 Only Unassigned, TOY 350.1.13.10 ity of [employer] [facility] 4.2.7.2.686 Bryce as [id number] [address] 2020-08-03 2020-08-03 [facility] 1.2.840.114 [id number] 00:00:00 00:00:00 Pearl Venegas [id number] [place] 4.2.7.2.686 Professio [phone] [address] 2020-08-03 2020-08-03 [facility] 1.2.840.114 [id number] [facility] 00:00:00 00:00:00 Pearl Venegas 350.1.13.10 i ty of [place] 4.2.7.2.686 [facility] [id number] [place] dical nal [address] 2020-07-19 2020-07-19 Immunizati Covid [facility] [id number] [facility] 13:46:40 13:56:40 [place] [facility] 2020-07-19 2020-07-19 Outpatient EL [facility] [id number] [facility] 00:00:00 00:00:00 2020-07-19 2020-07-19 Documentat Estela, [facility] [id number] [facility] 00:00:00 00:00:00 ion [facility] [place] 2020-07-18 2020-07-18 Outpatient EL SLE SLE [id number] [facility] 00:00:00 00:00:00 2020-06-28 2020-06-28 Outpatient SLE SLE [id number] [facility] 00:00:00 00:00:00 2020-06-25 2020-06-25 Emergency [facility], [facility] [id number] [id number] 17:04:00 23:09:00 Carolina Venegas 350.1.13.10 [place] 4.2.7.2.686 [place] [phone] [facility] 2020-06-25 2020-06-25 Emergency [facility], [facility] [id number] [facility] 17:04:00 23:09:00 Carolina Venegas 350.1.13.10 ity [facility] 4.2.7.2.686 [facility] [phone] [facility] 084 [place] 2020-06-25 2020-06-25 Orders Doctor LICONA 1.2.840.114 [id number] 00:00:00 00:00:00 Only UnassignedTOY 350.1.13.10 [employer] [facility] 4.2.7.2.686 [phone] 009 2020-06-25 2020-06-25 Orders Doctor LICONA 1.2.840.114 [id number] [facility] 00:00:00 00:00:00 Only UnassignedBALTAZARY 350.1.13.10 ity of [facility] 4.2.7.2.686 Bryce as [phone] [address] 2020-06-22 2020-06-22 [facility] 1.2.840.114 [id number] 00:00:00 00:00:00 [place] 350.1.13.10 [place] 4.2.7.2.686 Professio [phone] [address] 2020-06-22 2020-06-22 Refill [facility] 1.2.840.114 [id number] Univers 00:00:00 00:00:00 [place] 350.1.13.10 i ty [facility] [place].7.2.[place] [phone] [place] [address] 2020-03-13 2020-03-13 Outpatient EL SLEH SLE [id number] [facility] 00:00:00 00:00:00 2020-03-13 2020-03-13 Outpatient SLEH SLEH [id number] [facility] 00:00:00 00:00:00 2020-03-13 2020-03-13 Outpatient JESSICA, SLEH SLEH [id number] [facility] 00:00:00 00:00:00 [facility] 2020-03-13 2020-03-13 Outpatient EL KHADERI, SLEH SLEH [id number] [facility]H 00:00:00 00:00:00 AMBERLY 2020-02-18 2020-02-18 Outpatient SLEH SLEH [id number] [facility] 00:00:00 00:00:00 2020-02-18 2020-02-18 Outpatient EL SLEH SLEH [id number] SLEH 00:00:00 00:00:00 2020-02-18 2020-02-18 Outpatient SLEH SLEH [id number] [facility]H 00:00:00 00:00:00 2020-02-05 2020-02-05 Outpatient SLEH SLEH [id number] [facility]H 00:00:00 00:00:00 2020-02-05 2020-02-05 Outpatient KHADERI, SLEH SLEH [id number] SLEH 00:00:00 00:00:00 AMBERLY 2020-02-05 2020-02-05 Outpatient SLEH SLEH [id number] SLEH 00:00:00 00:00:00 2020-01-28 2020-01-28 Outpatient EL SLEH SLEH [id number] [facility] 00:00:00 00:00:00 2020-01-14 2020-01-14 Outpatient EL SLEH SLEH [id number] SLEH 00:00:00 00:00:00 2019-09-11 2019-09-11 Telephone [facility] 1.2.840.114 [id number] 00:00:00 00:00:00 Pearl Venegas 350.1.13.10 [place] 4.2.7.2.686 Professio [phone] [address] 2019-09-11 2019-09-11 Telephone [facility] 1.2.840.114 [id number] [facility] 00:00:00 00:00:00 Pearl Venegas 350.1.13.10 i ty of [place] [phone] [place] [address] 2019-08-20 2019-08-20 Outpatient SLE SLEH [id number] SLEH 00:00:00 00:00:00 [id number] 2019-02-08 2019-02-08 Orders Doctor SHAMAR 1.2.840.114 [id number] 00:00:00 00:00:00 Only Unassigned, TOY 350.1.13.10 [employer] [facility] 4.2.7.2.686 [phone] [facility] 2019-02-08 2019-02-08 Orders Doctor SHAMAR 1.2.840.114 [id number] [facility] 00:00:00 00:00:00 Only Unassigned, TOY 350.1.13.10 ity of [employer] [facility] 4.2.7.2.686 Bryce as [phone] [address] 2019-01-31 2019-01-31 Orders Doctor SHAMAR 1.2.840.114 [id number] 00:00:00 00:00:00 Only Unassigned, TOY 350.1.13.10 [employer] [facility] 4.2.7.2.686 [phone] 009 2019-01-31 2019-01-31 Orders Doctor SHAMAR 1.2.840.114 [id number] Univers 00:00:00 00:00:00 Only Unassigned, TOY 350.1.13.10 ity of [employer] [facility] 4.2.7.2.686 Bryce as [phone] [address] 2019-01-23 2019-01-23 Telephone Brenda Rod [facility] 1.2.840.114 [id number] 00:00:00 00:00:00 C Carter 350.1.13.10 [place] 4.2.7.2.686 Professio [phone] [address] 2019-01-23 2019-01-23 Telephone Brenda Rod [facility] 1.2.840.114 [id number] Univers 00:00:00 00:00:00 C Carter 350.1.13.10 i ty of [place] [phone] [place] dic[address] 2019-01-21 2019-01-21 Office Brenda Rod [facility] 1.2.840.114 [id number] 15:52:08 16:26:09 Visit C Carter 350.1.13.10 [place] 4.2.7.2.686 Professio [phone] [address] 2019-01-21 2019-01-21 Office Brenda Rod [facility] 1.2.840.114 [id number] [facility] 15:52:08 16:26:09 Visit C Carter 350.1.13.10 i ty of [place]2.7.2.[place] [phone] [place] dic[address] 2019-01-17 2019-01-17 Orders Doctor SHAMAR 1.2.840.114 [id number] 00:00:00 00:00:00 Only Unassigned, TOY 350.1.13.10 [employer] [facility] 4.2.7.2.686 [phone] 2019-01-17 2019-01-17 Orders Doctor LICONA 1.2.840.114 [id number] Univers 00:00:00 00:00:00 Only Unassigned, TOY 350.1.13.10 ity of [employer] [facility] 4.2.7.2.686 Bryce as [phone] [address] 2019-01-07 2019-01-07 Brenda Amado [facility] 1.2.840.114 [id number] Univers 00:00:00 00:00:00 C Carter 350.1.13.10 i ty of [place].2.[place] [phone] [place] dic[address] 2019-01-07 2019-01-07 Orders Doctor SHAMAR 1.2.840.114 [id number] Univers 00:00:00 00:00:00 Only Unassigned, TOY 350.1.13.10 ity of [employer] [facility] 4.2.7.2.686 Bryce as [phone] [address] 2019-01-02 2019-01-02 Orders Doctor SHAMAR 1.2.840.114 [id number] 00:00:00 00:00:00 Only Unassigned, TOY 350.1.13.10 [employer] [facility] 4.2.7.2.686 [phone] 2019-01-02 2019-01-02 Orders Doctor SHAMAR 1.2.840.114 [id number] Univers 00:00:00 00:00:00 Only Unassigned, TOY 350.1.13.10 ity of [employer] [facility] 4.2.7.2.686 Bryce as [phone] [address] 2019-01-02 2019-01-02 Refill Brenda Rod [facility] 1.2.840.114 [id number] Univers 00:00:00 00:00:00 C Carter 350.1.13.10 i ty of [place].2.[place] [phone] [place] dic[address] 2018-12-28 2018-12-28 Orders Doctor SHAMAR 1.2.840.114 [id number] 00:00:00 00:00:00 Only Unassigned, TOY 350.1.13.10 [employer] [facility] 4.2.7.2.686 [phone] 2018-12-282018-12-28 Orders Doctor SHAMAR 1.2.840.114 [id number] Univers 00:00:00 00:00:00 Only Unassigned, TOY 350.1.13.10 ity of [employer] [facility] 4.2.7.2.686 Bryce as [phone] [address] 2018-12-21 2018-12-21 Telephone Brenda Rod [facility] 1.2.840.114 [id number] Univers 00:00:00 00:00:00 C Carter 350.1.13.10 i ty of [place].2.[place] [phone] [place] dical nal 044 [facility] 2018-12-17 2018-12-17 Orders Doctor SHAMAR 1.2.840.114 [id number] Univers 00:00:00 00:00:00 Only Unassigned, TOY 350.1.13.10 ity of [employer] [facility] 4.2.7.2.686 Bryce as [phone] [address] 2016-10-19 2016-10-19 Orders Doctor SHAMAR 1.2.840.114 [id number] 00:00:00 00:00:00 Only Unassigned, TOY 350.1.13.10 [employer] [facility] 4.2.7.2.686 [phone] 009 2016-10-19 2016-10-19 Orders Doctor SHAMAR 1.2.840.114 [id number] Univers 00:00:00 00:00:00 Only Unassigned, TOY 350.1.13.10 ity of [employer] [facility] 4.2.7.2.686 Bryce as [phone] [address] 2016-10-13 2016-10-13 Orders Doctor SHAMAR 1.2.840.114 [id number] Univers 00:00:00 00:00:00 Only Unassigned, TOY 350.1.13.10 ity of [employer] [facility] 4.2.7.2.686 Bryce as [phone] [address] Results Test Description Test Time Test Comments Results Result Comments Source TACROLIMUS LEVEL 2023-01-12 14:09:37 Test Item Value Reference Range Interpretation Comme nts TACROLIMUS BLOOD (BEAKER) 8.2 ng/mL 10.0-20.[address] performed on [place] [employer] (test code = 657) Immunoassa y system with Chemiluminescen t Microparticle Immunoassay (CM IA) technology. Software Quality Tester ID - ADMINCOMPREHENSIVE METABOLIC [id number] 11:57:14 Test Item Value Reference Range Interpretation Comments TOTAL PROTEIN 6.3 gm/dL 6.0-8.3 (BEAKER) (test code = 770) ALBUMIN (BEAKER) 3.8 g/dL 3.5-5.0 (test code = 1145) ALKALINE 241 U/L 40-150 H PHOSPHATASE (BEAKER) (test code = 346) BILIRUBIN TOTAL 0.6 mg/dL 0.2-1.2 (BEAKER) (test code = 377) SODIUM (BEAKER) 135 meq/L 136-145 L (test code = 381) POTASSIUM (BEAKER) 4.7 meq/L 3.5-5.1 (test code = 379) CHLORIDE (BEAKER) 103 meq/L 98-107 (test code = 382) CO2 (BEAKER) (test 25 meq/L 22-29 code = 355) BLOOD UREA 11 mg/dL 7-21 NITROGEN (BEAKER) (test code = 354) CREATININE 0.88 mg/dL 0.57-1.25 (BEAKER) (test code = 358) GLUCOSE RANDOM 317 mg/dL 70-105 H (BEAKER) (test code = 652) CALCIUM (BEAKER) 8.7 mg/dL 8.4-10.2 (test code = 697) AST (SGOT) 46 U/L 5-34 H (BEAKER) (test code = 353) ALT (SGPT) 68 U/L 6-55 H (BEAKER) (test code = 347) EGFR (BEAKER) 96 Interpretatio n of eGFR (test code = 1092) mL/min/1.[address] age Description sq m Result G1 Shahnaz l or [...] not appl icable for dialysis patien ts Software Quality Tester ID - [id number] 11:57:14 Test Item Value Reference Range Interpretation Comments MAGNESIUM (BEAKER) (test code = 1.6 mg/dL 1.6-2.6 627) Software Quality Tester ID - [id number] 11:57:14 Test Item Value Reference Range Interpretation Comments PHOSPHORUS (BEAKER) (test code = 3.0 mg/dL 2.3-4.7 604) Software Quality Tester ID - ADMBILIRUBIN, [id number] 11:57:14 Test Item Value Reference Range Interpretation Comments BILIRUBIN DIRECT (BEAKER) (test 0.2 mg/dL 0.1-0.5 code = 706) Software Quality Tester ID - ADMCBC W/PLT COUNT & AUTO [id number] 11:52:59 Test Item Value Reference Range Interpretation Comments WHITE BLOOD CELL COUNT 9.9 K/ L 3.5-10.5 (BEAKER) (test code = 775) RED BLOOD CELL COUNT 6.04 M/ L 4.63-6.08 (BEAKER) (test code = 761) HEMOGLOBIN (BEAKER) 11.1 GM/DL 13.7-17.5 L (test code = 410) HEMATOCRIT (BEAKER) 40.1 % 40.1-51.0 (test code = 411) MEAN CORPUSCULAR 66 fL 79-92 L VOLUME (BEAKER) (test code = 753) MEAN CORPUSCULAR 18.4 pg 25.7-32.2 L HEMOGLOBIN (BEAKER) (test code = 751) MEAN CORPUSCULAR 27.7 GM/DL 32.3-36.5 L HEMOGLOBIN CONC (BEAKER) (test code = 752) RED CELL DISTRIBUTION 19.1 % 11.6-14.4 H WIDTH (BEAKER) (test code = 412) PLATELET COUNT 160 K/CU MM 150-450 (BEAKER) (test code = 756) MEAN PLATELET VOLUME Unable to report due (BEAKER) (test code = to abn ormal Platelet 754) population distribution. NUCLEATED RED BLOOD 0 /100 WBC 0-0 CELLS (BEAKER) (test code = 413) NEUTROPHILS RELATIVE 82 % PERCENT (BEAKER) (test code = 429) LYMPHOCYTES RELATIVE 12 % PERCENT (BEAKER) (test code = 430) MONOCYTES RELATIVE 4 % PERCENT (BEAKER) (test code = 431) EOSINOPHILS RELATIVE 1 % PERCENT (BEAKER) (test code = 432) BASOPHILS RELATIVE 1 % PERCENT (BEAKER) (test code = 437) NEUTROPHILS ABSOLUTE 8.19 K/ L 1.78-5.38 H COUNT (BEAKER) (test code = 670) LYMPHOCYTES ABSOLUTE 1.16 K/ L 1.32-3.57 L COUNT (BEAKER) (test code = 414) MONOCYTES ABSOLUTE 0.37 K/ L 0.30-0.82 COUNT (BEAKER) (test code = 415) EOSINOPHILS ABSOLUTE 0.07 K/ L 0.04-0.54 COUNT (BEAKER) (test code = 416) BASOPHILS ABSOLUTE 0.08 K/ L 0.01-0.08 COUNT (BEAKER) (test code = 417) IMMATURE 0.70 % 0.00-1.00 GRANULOCYTES-RELATIVE PERCENT (BEAKER) (test code = 2801) AK [id number] 10:32:40 [facility] KALEN CARDONA : 1955 Sex: MThis is a non- reportable study with no Radiologist dictation. Please refer to your PACS to review images, or Doc Flowsheets for documentation on studies without images. POCT-GLUCOSE [id number] 09:08:12 Test Item Value Reference Range Interpretation Comments POC-GLUCOSE METER 150 mg/dL 70-110 H : TESTED A T [facility] (BEAKER) (test code [place] E BLDG A, = 1538) [place] 7703 0: Software Quality Tester/Techni zaire ID = [id number] for Vari kkattu, Ani TACROLIMUS [id number] 12:27:41 Test Item Value Reference Range Interpretation Comments TACROLIMUS BLOOD 5.9 ng/mL 10.0-20.0 L Test perfor med on [place] (BEAKER) (test code Architec t Immunoassay = 657) system with Chemiluminescen t Microparticle I mmunoassay (CMIA) technolo gy. Software Quality Tester ID - [id number] 12:13:10 Test Item Value Reference Range Interpretation Comments PHOSPHORUS (BEAKER) (test code = 2.9 mg/dL 2.3-4.7 604) Software Quality Tester ID - MARCOBILIRUBIN, [id number] 12:13:10 Test Item Value Reference Range Interpretation Comments BILIRUBIN DIRECT (BEAKER) (test 0.3 mg/dL 0.1-0.5 code = 706) Software Quality Tester ID - MARCOCOMPREHENSIVE METABOLIC [id number] 12:13:09 Test Item Value Reference Range Interpretation Comments TOTAL PROTEIN 6.6 gm/dL 6.0-8.3 (BEAKER) (test code = 770) ALBUMIN (BEAKER) 3.7 g/dL 3.5-5.0 (test code = 1145) ALKALINE 308 U/L 40-150 H PHOSPHATASE (BEAKER) (test code = 346) BILIRUBIN TOTAL 0.6 mg/dL 0.2-1.2 (BEAKER) (test code = 377) SODIUM (BEAKER) 137 meq/L 136-145 (test code = 381) POTASSIUM (BEAKER) 4.6 meq/L 3.5-5.1 (test code = 379) CHLORIDE (BEAKER) 102 meq/L 98-107 (test code = 382) CO2 (BEAKER) (test 28 meq/L 22-29 code = 355) BLOOD UREA 16 mg/dL 7-21 NITROGEN (BEAKER) (test code = 354) CREATININE 0.89 mg/dL 0.57-1.25 (BEAKER) (test code = 358) GLUCOSE RANDOM 230 mg/dL 70-105 H (BEAKER) (test code = 652) CALCIUM (BEAKER) 9.1 mg/dL 8.4-10.2 (test code = 697) AST (SGOT) 56 U/L 5-34 H (BEAKER) (test code = 353) ALT (SGPT) 84 U/L 6-55 H (BEAKER) (test code = 347) EGFR (BEAKER) 96 Interpretatio n of eGFR (test code = 1092) mL/min/1.[address] age Description sq m Result G1 Shahnaz l or [...] not appl icable for dialysis patien ts Software Quality Tester ID - [id number] 12:13:09 Test Item Value Reference Range Interpretation Comments MAGNESIUM (BEAKER) (test code = 1.6 mg/dL 1.6-2.6 627) Software Quality Tester ID - MARCOCBC W/PLT COUNT & AUTO [id number] 11:14:49 Test Item Value Reference Range Interpretation Comments WHITE BLOOD CELL COUNT 9.4 K/ L 3.5-10.5 (BEAKER) (test code = 775) RED BLOOD CELL COUNT 5.74 M/ L 4.63-6.08 (BEAKER) (test code = 761) HEMOGLOBIN (BEAKER) 11.2 GM/DL 13.7-17.5 L (test code = 410) HEMATOCRIT (BEAKER) 40.2 % 40.1-51.0 (test code = 411) MEAN CORPUSCULAR 70 fL 79-92 L VOLUME (BEAKER) (test code = 753) MEAN CORPUSCULAR 19.5 pg 25.7-32.2 L HEMOGLOBIN (BEAKER) (test code = 751) MEAN CORPUSCULAR 27.9 GM/DL 32.3-36.5 L HEMOGLOBIN CONC (BEAKER) (test code = 752) RED CELL DISTRIBUTION 18.5 % 11.6-14.4 H WIDTH (BEAKER) (test code = 412) PLATELET COUNT 173 K/CU MM 150-450 (BEAKER) (test code = 756) MEAN PLATELET VOLUME Unable to report due (BEAKER) (test code = to abn ormal Platelet 754) population distribution. NUCLEATED RED BLOOD 0 /100 WBC 0-0 CELLS (BEAKER) (test code = 413) NEUTROPHILS RELATIVE 80 % PERCENT (BEAKER) (test code = 429) LYMPHOCYTES RELATIVE 13 % PERCENT (BEAKER) (test code = 430) MONOCYTES RELATIVE 4 % PERCENT (BEAKER) (test code = 431) EOSINOPHILS RELATIVE 1 % PERCENT (BEAKER) (test code = 432) BASOPHILS RELATIVE 1 % PERCENT (BEAKER) (test code = 437) NEUTROPHILS ABSOLUTE 7.47 K/ L 1.78-5.38 H COUNT (BEAKER) (test code = 670) LYMPHOCYTES ABSOLUTE 1.23 K/ L 1.32-3.57 L COUNT (BEAKER) (test code = 414) MONOCYTES ABSOLUTE 0.36 K/ L 0.30-0.82 COUNT (BEAKER) (test code = 415) EOSINOPHILS ABSOLUTE 0.12 K/ L 0.04-0.54 COUNT (BEAKER) (test code = 416) BASOPHILS ABSOLUTE 0.10 K/ L 0.01-0.08 H COUNT (BEAKER) (test code = 417) IMMATURE 0.70 % 0.00-1.00 GRANULOCYTES-RELATIVE PERCENT (BEAKER) (test code = 2801) TACROLIMUS [id number] 12:20:54 Test Item Value Reference Range Interpretation Comments TACROLIMUS BLOOD 7.5 ng/mL 10.0-20.0 L Test perfor med on [place] (BEAKER) (test code Architec t Immunoassay = 657) system with Chemiluminescen t Microparticle I mmunoassay (CMIA) technolo gy. Software Quality Tester ID - ADMINCOMPREHENSIVE METABOLIC [id number] 10:06:05 Test Item Value Reference Range Interpretation Comments TOTAL PROTEIN 6.3 gm/dL 6.0-8.3 (BEAKER) (test code = 770) ALBUMIN (BEAKER) 3.6 g/dL 3.5-5.0 (test code = 1145) ALKALINE 283 U/L 40-150 H PHOSPHATASE (BEAKER) (test code = 346) BILIRUBIN TOTAL 0.5 mg/dL 0.2-1.2 (BEAKER) (test code = 377) SODIUM (BEAKER) 139 meq/L 136-145 (test code = 381) POTASSIUM (BEAKER) 4.5 meq/L 3.5-5.1 (test code = 379) CHLORIDE (BEAKER) 108 meq/L 98-107 H (test code = 382) CO2 (BEAKER) (test 23 meq/L 22-29 code = 355) BLOOD UREA 13 mg/dL 7-21 NITROGEN (BEAKER) (test code = 354) CREATININE 0.89 mg/dL 0.57-1.25 (BEAKER) (test code = 358) GLUCOSE RANDOM 297 mg/dL 70-105 H (BEAKER) (test code = 652) CALCIUM (BEAKER) 8.8 mg/dL 8.4-10.2 (test code = 697) AST (SGOT) 33 U/L 5-34 (BEAKER) (test code = 353) ALT (SGPT) 56 U/L 6-55 H (BEAKER) (test code = 347) EGFR (BEAKER) 96 Interpretatio n of eGFR (test code = 1092) mL/min/1.[address] age Description sq m Result G1 Shahnaz l or [...] not appl icable for dialysis patien ts Software Quality Tester ID - [id number] 10:06:05 Test Item Value Reference Range Interpretation Comments MAGNESIUM (BEAKER) (test code = 1.5 mg/dL 1.6-2.6 L 627) Software Quality Tester ID - [id number] 10:06:05 Test Item Value Reference Range Interpretation Comments PHOSPHORUS (BEAKER) (test code = 2.3 mg/dL 2.3-4.7 604) Software Quality Tester ID - MARCOBILIRUBIN, [id number] 10:06:05 Test Item Value Reference Range Interpretation Comments BILIRUBIN DIRECT (BEAKER) (test 0.2 mg/dL 0.1-0.5 code = 706) Software Quality Tester ID - MARCOCBC W/PLT COUNT & AUTO [id number] 09:55:34 Test Item Value Reference Range Interpretation Comments WHITE BLOOD CELL COUNT 7.8 K/ L 3.5-10.5 (BEAKER) (test code = 775) RED BLOOD CELL COUNT 5.63 M/ L 4.63-6.08 (BEAKER) (test code = 761) HEMOGLOBIN (BEAKER) 10.9 GM/DL 13.7-17.5 L (test code = 410) HEMATOCRIT (BEAKER) 39.4 % 40.1-51.0 L (test code = 411) MEAN CORPUSCULAR 70 fL 79-92 L VOLUME (BEAKER) (test code = 753) MEAN CORPUSCULAR 19.4 pg 25.7-32.2 L HEMOGLOBIN (BEAKER) (test code = 751) MEAN CORPUSCULAR 27.7 GM/DL 32.3-36.5 L HEMOGLOBIN CONC (BEAKER) (test code = 752) RED CELL DISTRIBUTION 17.9 % 11.6-14.4 H WIDTH (BEAKER) (test code = 412) PLATELET COUNT 149 K/CU MM 150-450 L (BEAKER) (test code = 756) MEAN PLATELET VOLUME Unable to report due (BEAKER) (test code = to abn ormal Platelet 754) population distribution. NUCLEATED RED BLOOD 0 /100 WBC 0-0 CELLS (BEAKER) (test code = 413) NEUTROPHILS RELATIVE 75 % PERCENT (BEAKER) (test code = 429) LYMPHOCYTES RELATIVE 16 % PERCENT (BEAKER) (test code = 430) MONOCYTES RELATIVE 5 % PERCENT (BEAKER) (test code = 431) EOSINOPHILS RELATIVE 2 % PERCENT (BEAKER) (test code = 432) BASOPHILS RELATIVE 1 % PERCENT (BEAKER) (test code = 437) NEUTROPHILS ABSOLUTE 5.78 K/ L 1.78-5.38 H COUNT (BEAKER) (test code = 670) LYMPHOCYTES ABSOLUTE 1.26 K/ L 1.32-3.57 L COUNT (BEAKER) (test code = 414) MONOCYTES ABSOLUTE 0.40 K/ L 0.30-0.82 COUNT (BEAKER) (test code = 415) EOSINOPHILS ABSOLUTE 0.15 K/ L 0.04-0.54 COUNT (BEAKER) (test code = 416) BASOPHILS ABSOLUTE 0.10 K/ L 0.01-0.08 H COUNT (BEAKER) (test code = 417) IMMATURE 0.90 % 0.00-1.00 GRANULOCYTES-RELATIVE PERCENT (BRITTANYAKER) (test code = 2801) POCT-GLUCOSE [id number] 11:26:26 Test Item Value Reference Range Interpretation Comments POC-GLUCOSE METER 213 mg/dL 70-110 H : TESTED A T [facility] ([facility]) (test code = [place], 1538) [address]: Software Quality Tester/Techni zaire ID = [id number] for [place] TACROLIMUS [id number] 11:23:49 Test Item Value Reference Range Interpretation Comments TACROLIMUS BLOOD 12.0 ng/mL 10.0-20.0 Test perfor med on [place] ([facility]) (test code Architec t Immunoassay = 657) system with Chemiluminescen t Microparticle Immunoassay (CM IA) technology. Software Quality Tester ID - ADMINPOCT-GLUCOSE [id number] 07:27:00 Test Item Value Reference Range Interpretation Comments POC-GLUCOSE METER 130 mg/dL 70-110 H : TESTED A T [facility] ([facility]) (test code = [place], 1538) [address]: Software Quality Tester/Techni zaire ID = [id number] for [place]ORY [place] PHOSPHATIDYLETHANOL, [id number] 07:25:18 Test Item Value Reference Range Interpretation Comments PHOSPHATIDYLETHANOL (PETH) S ee scanned (test code = 1109129) report . HEPATIC FUNCTION [id number] 05:40:08 Test Item Value Reference Range Interpretation Comments TOTAL PROTEIN (BEAKER) (test code = 6.3 gm/dL 6.0-8.3 770) ALBUMIN (BEAKER) (test code = 1145) 3.6 g/dL 3.5-5.0 BILIRUBIN TOTAL (BEAKER) (test code 0.5 mg/dL 0.2-1.2 = 377) BILIRUBIN DIRECT (BEAKER) (test 0.3 mg/dL 0.1-0.5 code = 706) ALKALINE PHOSPHATASE (BEAKER) (test 303 U/L 40-150 H code = 346) AST (SGOT) (BEAKER) (test code = 22 U/L 5-34 353) ALT (SGPT) (BEAKER) (test code = 45 U/L 6-55 347) Software Quality Tester ID - [id number] 05:40:07 Test Item Value Reference Range Interpretation Comments PHOSPHORUS (BEAKER) (test code = 3.3 mg/dL 2.3-4.7 604) Software Quality Tester ID - MMBASIC METABOLIC [id number] 05:40:06 Test Item Value Reference Range Interpretation Comments SODIUM (BEAKER) 136 meq/L 136-145 (test code = 381) POTASSIUM 4.3 meq/L 3.5-5.1 (BEAKER) (test code = 379) CHLORIDE (BEAKER) 105 meq/L 98-107 (test code = 382) CO2 (BEAKER) 23 meq/L 22-29 (test code = 355) BLOOD UREA 15 mg/dL 7-21 NITROGEN (BEAKER) (test code = 354) CREATININE 0.91 mg/dL 0.57-1.25 (BEAKER) (test code = 358) GLUCOSE RANDOM 121 mg/dL 70-105 H (BEAKER) (test code = 652) CALCIUM (BEAKER) 8.8 mg/dL 8.4-10.2 (test code = 697) EGFR (BEAKER) 95 Interpretatio n of eGFR (test code = [...] not appl icable for dialysis patien ts Software Quality Tester ID - [id number] 05:40:06 Test Item Value Reference Range Interpretation Comments MAGNESIUM (BEAKER) (test code = 1.5 mg/dL 1.6-2.6 L 627) Software Quality Tester ID - [id number] 05:23:06 Test Item Value Reference Range Interpretation Comments PROTIME (BEAKER) (test code = 13.8 seconds 11.9-14.2 759) INR (BEAKER) (test code = 370) 1.09 <=5.90 RECOMMENDED COUMADIN/WARFARIN INR THERAPY RANGESSTANDARD DOSE: 2.0 - 3.0 Includes: PROPHYLAXIS for venous thrombosis, systemic embolization; TREATMENT for venous thrombosis and/or pulmonary embolus.HIGH RISK: Target INR is 2.5-3.5 for patients with mechanical heart valves.CBC W/PLT COUNT & AUTO [id number] 05:16:31 Test Item Value Reference Range Interpretation Comments WHITE BLOOD CELL COUNT (BEAKER) 7.5 K/ L 3.5-10.5 (test code = 775) RED BLOOD CELL COUNT (BEAKER) 5.61 M/ L 4.63-6.08 (test code = 761) HEMOGLOBIN (BEAKER) (test code = 10.8 GM/DL 13.7-17.5 L 410) HEMATOCRIT (BEAKER) (test code = 38.2 % 40.1-51.0 L 411) MEAN CORPUSCULAR VOLUME (BEAKER) 68 fL 79-92 L (test code = 753) MEAN CORPUSCULAR HEMOGLOBIN 19.3 pg 25.7-32.2 L (BEAKER) (test code = 751) MEAN CORPUSCULAR HEMOGLOBIN CONC 28.3 GM/DL 32.3-36.5 L (BEAKER) (test code = 752) RED CELL DISTRIBUTION WIDTH 17.7 % 11.6-14.4 H (BEAKER) (test code = 412) PLATELET COUNT (BEAKER) (test 146 K/CU MM 150-450 L code = 756) MEAN PLATELET VOLUME (BEAKER) 9.6 [...] (test code = 437) NEUTROPHILS ABSOLUTE COUNT 3.99 K/ L 1.78-5.38 (BEAKER) (test code = 670) LYMPHOCYTES ABSOLUTE COUNT 2.35 K/ L 1.32-3.57 (BEAKER) (test code = 414) MONOCYTES ABSOLUTE COUNT (BEAKER) 0.80 K/ L 0.30-0.82 (test code = 415) EOSINOPHILS ABSOLUTE COUNT 0.23 K/ L 0.04-0.54 (BEAKER) (test code = 416) BASOPHILS ABSOLUTE COUNT (BEAKER) 0.08 K/ L 0.01-0.08 (test code = 417) IMMATURE GRANULOCYTES-RELATIVE 0.80 % 0.00-1.00 PERCENT (BEAKER) (test code = 2801) POCT-GLUCOSE [id number] 21:10:11 Test Item Value Reference Range Interpretation Comments POC-GLUCOSE METER 234 mg/dL 70-110 H : [facility] (test code = [place], 1538) [id number]: Software Quality Tester/Techni zaire ID = [id number] for MARGOT SHIPLEY POCT-GLUCOSE [id number] 16:22:36 Test Item Value Reference Range Interpretation Comments POC-GLUCOSE METER 274 mg/dL 70-110 H : [facility] (test code = [place], 1538) [id number]: Software Quality Tester/Techni zaire ID = [id number] for PJAndreaCORY SPENCER TACROLIMUS [id number] 14:17:03 Test Item Value Reference Range Interpretation Comments TACROLIMUS BLOOD 22.4 ng/mL 10.0-20.0 H Test perfor med on [place] (AKER) (test code Architec t Immunoassay = 657) system with Chemiluminescen t Microparticle Immunoassay (CM IA) technology. Software Quality Tester ID - MMOperator ID - ADMINTISSUE [id number] 13:44:42Surgical Pathology Report Case: [id number] Authorizing Provider: Shamar Michaels Jr., MD Collected: 11/18/2022 11:29 AM Ordering Location: [address] Received: 11/18/2022 02:25 PM Cardiovascular Pathologist: Denise Martin MD Specimen: Biopsy, Liver LIVER, S/P TRANSPLANT AUGUST 2022, NEEDLE CORE BIOPSY-Features of bile duct injury with portal triads with chronic inflammation with rare poorly defined granuloma, bile ductular reaction and pericholangitis.- Mild duct bile duct injury, see comment- Mild cholestasis- Central venular congestion and focal hepatocyte dropout -Negative for acute or chronic T-cell mediated rejection Signing Pathologist Direct Phone Line: [phone] signed by Denise Martin MD on 11/23/2022 at 1:44 PMIn this 66 years old male with 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 In comparison to the prior biopsy [id number] the current biopsy shows decreased central venular injury, portal inflammation and bile duct injury at the portal triads. 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 The poorly defined granulomas at the portal triad may be reactive.Correlation with MRCP outpatient history of drug intake is recommended. No definitive features of chronic ductopenia noted however close follow-up is recommendedClinician notified Dr. Ragland was notified by telephonic call on 11/19/2022 around 1:30 [id number]/[id number] liver transplant; rejectionA. Biopsy, LiverReceived in formalin labeled with the patient's name, medical record number and "liver biopsy"are 3 scanlon soft tissue cores ranging in size from 0.6-1.6 cm, which are submitted in toto in A1.Katina Banks2 liver cores with adequate number of portal triads and preserved hepatic parenchyma. Most of the portal triads show significant bile ductular reaction nests with associated neutrophils. The bile duct at the portal triad shows mild bile duct injury in terms of anisonucleosis and cytoplasmic vascularization. No significant portal vein endotheliitis noted. The lobules shows mild lobular inflammation comprised of lymphocytes and neutrophils with focal areas of confluent necrosis associated with biliary infarct. Trichrome stain shows no significant fibrosis PASD stain is negative for antitrypsin globules. Iron stain is negative for increased ironThe interpretation of this case included the use of immunohistochemistry or special stains.Control Slides Examined: In-house known positive controls were evaluated along with the test tissue. These control slides run alongside of the patients sample show appropriate staining. Internal positive and negative controls when available are evaluated Immunohistochemistry technical testing was performed at [facility], Pathology Laboratory where it was developed and its performance characteristics were determined. It has not been cleared or approved by the U.S. Food and Drug Administration. The FDA has determined that such clearance orapproval is not necessary. The test is used for clinical purposes. It should not be regarded as investigational or for research. This laboratory is certified under the Clinical Laboratory Improvement Amendments of 1988 (CLIA-88) as qualified to perform high complexity clinical laboratory testing.[facility], Department of Pathology, [address] [place] [id number], [facility], [address] [place] [id number], [facility], Department of [facility], [address] [place] [address], MOXU-GLUCOSE [id number] 11:47:19 Test Item Value Reference Range Interpretation Comments POC-GLUCOSE METER 222 mg/dL 70-110 H : TESTED A T [facility] 67[address] ([employer]) (test code = NICOLE rAita [facility], 1538) [address]: Software Quality Tester/Techni zaire ID = [id number] for GRISEL BLOOMPILARE LIVER [id number] 10:35:09 [facility]ALEN CARDONA : 1955 Sex: MPROCEDURE: Image- guided biopsyProcedural PersonnelAttending physician(s): Javier Griffin MDPre- procedure diagnosis: Transplant liver dysfunctionPost-procedure diagnosis: SameIndication: Organ dysfunctionComplications: No immediate complications.IMPRESSION:Image-guided biopsy of transplant liver.Plan: Specimen(s) sent for evaluation. PROCED URE SUMMARY:- Percutaneous ultrasound-guided core needle biopsy- Additional procedure(s): NonePROCEDURE DETAILS:Pre-procedureConsent: Informed consent for the procedure including risks, benefitsand alternatives was obtained and time- out was performed prior to theprocedure.Preparation: The site was prepared and draped using maximal sterilebarrier technique including cutaneous antisepsis.Anesthesia/sedationLevel of anesthesia/sedation: Moderate sedation (conscious sedation)Medications: 50 mcg fentanyl IV.Anesthesia/sedation administered by: Independent trained observer underattending supervision with continuousmonitoring of the patient?s levelof consciousness and physiologic statusTotal intra-service sedationtime (minutes): 10Imaging prior to biopsyThe patient was positioned supine. Initial imaging was performed.Biopsy target: Nontarget right hepatic lobe.Biopsy Local anesthesia was administered. Under imaging guidance as stated inthe procedure summary, the biopsy needle was advanced to the target andbiopsy was performed.Core needle biopsy device: [employer] needle size: 16 gaugeNumber of core specimens: 2Needle removalThe biopsy needle was removed and a sterile dressing was applied.Tract embolization: NoneImaging following biopsyPost-biopsy imaging: UltrasoundPost-biopsy imaging findings: No immediate complicationsAdditional DetailsAdditional description of procedure: NoneEquipment details: NoneSpecimens removed: Biopsy samples as detailed aboveEstimated blood loss (mL): Less than 5Electronically Signed By: Javier Griffin11/23/2022 10:37 CDTWorkstation Name: [id number] METER 2022-11-23 07:37:31 Test Item Value Reference Range Interpretation Comments POC-GLUCOSE METER 123 mg/dL 70-110 H : TESTED A T [facility] 6720 (BE[employer]) (test code = [place], 1538) [address]: Software Quality Tester/Techni zaire ID = [id number] for CORY NAPOLES2023-06-28 07:30:16 Test Item Value Reference Range Interpretation Comments MAGNESIUM (BEAKER) (test code = 1.6 mg/dL 1.6-2.6 627) Software Quality Tester ID - [id number] 07:30:16 Test Item Value Reference Range Interpretation Comments PHOSPHORUS (BEAKER) (test code = 4.3 mg/dL 2.3-4.7 604) Software Quality Tester ID - ADMINHEPATIC FUNCTION [id number] 07:30:16 Test Item Value Reference Range Interpretation Comments TOTAL PROTEIN (BEAKER) (test code = 6.6 gm/dL 6.0-8.3 770) ALBUMIN (BEAKER) (test code = 1145) 3.8 g/dL 3.5-5.0 BILIRUBIN TOTAL (BEAKER) (test code 0.7 mg/dL 0.2-1.2 = 377) BILIRUBIN DIRECT (BEAKER) (test 0.3 mg/dL 0.1-0.5 code = 706) ALKALINE PHOSPHATASE (BEAKER) (test 343 U/L 40-150 H code = 346) AST (SGOT) (BEAKER) (test code = 31 U/L 5-34 353) ALT (SGPT) (BEAKER) (test code = 49 U/L 6-55 347) Software Quality Tester ID - ADMINBASIC METABOLIC [id number] 07:30:15 Test Item Value Reference Range Interpretation Comments SODIUM (BEAKER) 136 meq/L 136-145 (test code = 381) POTASSIUM 4.8 meq/L 3.5-5.1 (BEAKER) (test code = 379) CHLORIDE (BEAKER) 106 meq/L 98-107 (test code = 382) CO2 (BEAKER) 19 meq/L 22-29 L (test code = 355) BLOOD UREA 15 mg/dL 7-21 NITROGEN (BEAKER) (test code = 354) CREATININE 0.96 mg/dL 0.57-1.25 (BEAKER) (test code = 358) GLUCOSE RANDOM 115 mg/dL 70-105 H (BEAKER) (test code = 652) CALCIUM (BEAKER) 8.8 mg/dL 8.4-10.2 (test code = 697) EGFR (BEAKER) 89 Interpretatio n of eGFR (test code = [...] not appl icable for dialysis patien ts Software Quality Tester ID - ADMINCBC W/PLT COUNT & AUTO [id number] 06:02:34 Test Item Value Reference Range Interpretation Comments WHITE BLOOD CELL COUNT 7.2 K/ L 3.5-10.5 (BEAKER) (test code = 775) RED BLOOD CELL COUNT 5.83 M/ L 4.63-6.08 (BEAKER) (test code = 761) HEMOGLOBIN (BEAKER) 11.3 GM/DL 13.7-17.5 L (test code = 410) HEMATOCRIT (BEAKER) 40.2 % 40.1-51.0 (test code = 411) MEAN CORPUSCULAR 69 fL 79-92 L VOLUME (BEAKER) (test code = 753) MEAN CORPUSCULAR 19.4 pg 25.7-32.2 L HEMOGLOBIN (BEAKER) (test code = 751) MEAN CORPUSCULAR 28.1 GM/DL 32.3-36.5 L HEMOGLOBIN CONC (BEAKER) (test code = 752) RED CELL DISTRIBUTION 18.8 % 11.6-14.4 H WIDTH (BEAKER) (test code = 412) PLATELET COUNT 148 K/CU MM 150-450 L (BEAKER) (test code = 756) MEAN PLATELET VOLUME 10.2 fL 9.4-12.4 Unable to report due (BEAKER) (test code = to abn ormal Platelet 754) population distribution. NUCLEATED RED BLOOD 0 /100 WBC 0-0 CELLS (BEAKER) (test code = 413) NEUTROPHILS RELATIVE 53 % PERCENT (BEAKER) (test code = 429) LYMPHOCYTES RELATIVE 32 % PERCENT (BEAKER) (test code = 430) MONOCYTES RELATIVE 8 % PERCENT (BEAKER) (test code = 431) EOSINOPHILS RELATIVE 4 % PERCENT (BEAKER) (test code = 432) BASOPHILS RELATIVE 1 % PERCENT (BEAKER) (test code = 437) NEUTROPHILS ABSOLUTE 3.82 K/ L 1.78-5.38 COUNT (BEAKER) (test code = 670) LYMPHOCYTES ABSOLUTE 2.31 K/ L 1.32-3.57 COUNT (BEAKER) (test code = 414) MONOCYTES ABSOLUTE 0.60 K/ L 0.30-0.82 COUNT (BEAKER) (test code = 415) EOSINOPHILS ABSOLUTE 0.29 K/ L 0.04-0.54 COUNT (BEAKER) (test code = 416) BASOPHILS ABSOLUTE 0.09 K/ L 0.01-0.08 H COUNT (BEAKER) (test code = 417) IMMATURE 0.60 % 0.00-1.00 GRANULOCYTES-RELATIVE PERCENT (BEAKER) (test code = 2801) PROTHROMBIN [id number] 05:35:52 Test Item Value Reference Range Interpretation Comments PROTIME (BEAKER) (test code = 14.4 seconds 11.9-14.2 H 759) INR (BEAKER) (test code = 370) 1.19 <=5.90 RECOMMENDED COUMADIN/WARFARIN INR THERAPY RANGESSTANDARD DOSE: 2.0 - 3.0 Includes: PROPHYLAXIS for venous thrombosis, systemic embolization; TREATMENT for venous thrombosis and/or pulmonary embolus.HIGH RISK: Target INR is 2.5-3.5 for patients with mechanical heart valves.POCT-GLUCOSE [id number] 21:04:34 Test Item Value Reference Range Interpretation Comments POC-GLUCOSE METER 177 mg/dL 70-110 H : TESTED A T [facility] 6720 ([employer]) (test code = [place] [facility], 153) [address]: Software Quality Tester/Techni zaire ID = [id number] for MARGOT SHIPLEY POCT-GLUCOSE [id number] 17:42:02 Test Item Value Reference Range Interpretation Comments POC-GLUCOSE METER 132 mg/dL 70-110 H : TESTED A T [facility] 6720 (BEAKER) (test code = [facility] [facility], 153) [address]: Software Quality Tester/Techni zaire ID = [id number] for Anthony arturoDain POCT-GLUCOSE [id number] 15:34:15 Test Item Value Reference Range Interpretation Comments POC-GLUCOSE METER 154 mg/dL 70-110 H : TESTED A T [facility] 6720 (BEAKER) (test code = [place], 1538) [address]: Software Quality Tester/Techni zaire ID = [id number] for SATURNINO STEINBERG POCT-GLUCOSE [id number] 11:54:49 Test Item Value Reference Range Interpretation Comments POC-GLUCOSE METER 153 mg/dL 70-110 H : TESTED A T [facility] 6720 (BEAKER) (test code = [place], 1538) [address]: Software Quality Tester/Techni zaire ID = [id number] for EILEEN COONEY TACROLIMUS [id number] 10:15:18 Test Item Value Reference Range Interpretation Comments TACROLIMUS BLOOD 17.3 ng/mL 10.0-20.0 Test perfor med on [place] (BEAKER) (test code Architec t Immunoassay = 657) system with Chemiluminescen t Microparticle Immunoassay (CM IA) technology. Software Quality Tester ID - ADMINPOCT-GLUCOSE [id number] 08:59:19 Test Item Value Reference Range Interpretation Comments POC-GLUCOSE METER 137 mg/dL 70-110 H : TESTED A T [facility] 6720 (BEAKER) (test code = [place], 1538) [address]: Software Quality Tester/Techni zaire ID = [id number] for MIGEL BOLIVARJOHNMI BLOOD [id number] 07:00:13 Test Item Value Reference Range Interpretation Comments CULTURE (BEAKER) (test No growth in 5 days code = 1095) BLOOD [id number] 07:00:12 Test Item Value Reference Range Interpretation Comments CULTURE (BEAKER) (test No growth in 5 days code = 1095) HEPATIC FUNCTION [id number] 04:48:07 Test Item Value Reference Range Interpretation Comments TOTAL PROTEIN (BEAKER) (test code = 6.7 gm/dL 6.0-8.3 770) ALBUMIN (BEAKER) (test code = 1145) 3.9 g/dL 3.5-5.0 BILIRUBIN TOTAL (BEAKER) (test code 0.6 mg/dL 0.2-1.2 = 377) BILIRUBIN DIRECT (BEAKER) (test 0.3 mg/dL 0.1-0.5 code = 706) ALKALINE PHOSPHATASE (BEAKER) (test 386 U/L 40-150 H code = 346) AST (SGOT) (BEAKER) (test code = 18 U/L 5-34 353) ALT (SGPT) (BEAKER) (test code = 45 U/L 6-55 347) Software Quality Tester ID - [id number] 04:48:06 Test Item Value Reference Range Interpretation Comments MAGNESIUM (BEAKER) (test code = 1.7 mg/dL 1.6-2.6 627) Software Quality Tester ID - [id number] 04:48:06 Test Item Value Reference Range Interpretation Comments PHOSPHORUS (BEAKER) (test code = 5.3 mg/dL 2.3-4.7 H 604) Software Quality Tester ID - ADMINBASIC METABOLIC [id number] 04:48:05 Test Item Value Reference Range Interpretation Comments SODIUM (BEAKER) 139 meq/L 136-145 (test code = 381) POTASSIUM 4.6 meq/L 3.5-5.1 (BEAKER) (test code = 379) CHLORIDE (BEAKER) 106 meq/L 98-107 (test code = 382) CO2 (BEAKER) 22 meq/L 22-29 (test code = 355) BLOOD UREA 15 mg/dL 7-21 NITROGEN (BEAKER) (test code = 354) CREATININE 0.98 mg/dL 0.57-1.25 (BEAKER) (test code = 358) GLUCOSE RANDOM 131 mg/dL 70-105 H (BEAKER) (test code = 652) CALCIUM (BEAKER) 9.5 mg/dL 8.4-10.2 (test code = 697) EGFR (BEAKER) 87 Interpretatio n of eGFR (test code = [...] not appl icable for dialysis patien ts Software Quality Tester ID - ADMINPROTHROMBIN [id number] 04:29:24 Test Item Value Reference Range Interpretation Comments PROTIME (BEAKER) (test code = 14.3 seconds 11.9-14.2 H 759) INR (BEAKER) (test code = 370) 1.18 <=5.90 RECOMMENDED COUMADIN/WARFARIN INR THERAPY RANGESSTANDARD DOSE: 2.0 - 3.0 Includes: PROPHYLAXIS for venous thrombosis, systemic embolization; TREATMENT for venous thrombosis and/or pulmonary embolus.HIGH RISK: Target INR is 2.5-3.5 for patients with mechanical heart valves.CBC W/PLT COUNT & AUTO [id number] 04:25:20 Test Item Value Reference Range Interpretation Comments WHITE BLOOD CELL COUNT (BEAKER) 8.4 K/ L 3.5-10.5 (test code = 775) RED BLOOD CELL COUNT (BEAKER) 5.72 M/ L 4.63-6.08 (test code = 761) HEMOGLOBIN (BEAKER) (test code = 11.2 GM/DL 13.7-17.5 L 410) HEMATOCRIT (BEAKER) (test code = 39.4 % 40.1-51.0 L 411) MEAN CORPUSCULAR VOLUME (BEAKER) 69 fL 79-92 L (test code = 753) MEAN CORPUSCULAR HEMOGLOBIN 19.6 pg 25.7-32.2 L (BEAKER) (test code = 751) MEAN CORPUSCULAR HEMOGLOBIN CONC 28.4 GM/DL 32.3-36.5 L (BEAKER) (test code = 752) RED CELL DISTRIBUTION WIDTH 18.6 % 11.6-14.4 H (BEAKER) (test code = 412) PLATELET COUNT (BEAKER) (test 186 K/CU MM 150-450 code = 756) MEAN PLATELET VOLUME (BEAKER) 10.1 fL 9.4-12.4 (test code = 754) NUCLEATED RED BLOOD CELLS 0 /100 WBC 0-0 (BEAKER) (test code = 413) NEUTROPHILS RELATIVE PERCENT 54 % (BEAKER) (test code = 429) LYMPHOCYTES RELATIVE PERCENT 32 % (BEAKER) (test code = 430) MONOCYTES RELATIVE PERCENT 10 % (BEAKER) (test code = 431) EOSINOPHILS RELATIVE PERCENT 2 % (BEAKER) (test code = 432) BASOPHILS RELATIVE PERCENT 1 % (BEAKER) (test code = 437) NEUTROPHILS ABSOLUTE COUNT 4.51 K/ L 1.78-5.38 (BEAKER) (test code = 670) LYMPHOCYTES ABSOLUTE COUNT 2.71 K/ L 1.32-3.57 (BEAKER) (test code = 414) MONOCYTES ABSOLUTE COUNT (BEAKER) 0.81 K/ L 0.30-0.82 (test code = 415) EOSINOPHILS ABSOLUTE COUNT 0.19 K/ L 0.04-0.54 (BEAKER) (test code = 416) BASOPHILS ABSOLUTE COUNT (BEAKER) 0.09 K/ L 0.01-0.08 H (test code = 417) IMMATURE GRANULOCYTES-RELATIVE 0.60 % 0.00-1.00 PERCENT (AKER) (test code = 2801) POCT-GLUCOSE [id number] 20:58:50 Test Item Value Reference Range Interpretation Comments POC-GLUCOSE METER 170 mg/dL 70-110 H : TESTED A T [facility] 6720 ([facility]) (test code = [place], 1538) [address]: Software Quality Tester/Techni zaire ID = [id number] for MARGOT SHIPLEY POCT-GLUCOSE [id number] 16:52:48 Test Item Value Reference Range Interpretation Comments POC-GLUCOSE METER 394 mg/dL 70-110 H : TESTED A T [facility] 6720 ([facility]) (test code = [place], 1538) [address]: Software Quality Tester/Techni zaire ID = [id number] for FE RNANDO, HENNY POCT-GLUCOSE [id number] 11:28:39 Test Item Value Reference Range Interpretation Comments POC-GLUCOSE METER 177 mg/dL 70-110 H : TESTED A T [facility] 67[address] ([facility]) (test code = [place], 1538) [address]: Software Quality Tester/Techni zaire ID = [id number] for FE RNANDO, HENNY TACROLIMUS [id number] 09:47:18 Test Item Value Reference Range Interpretation Comments TACROLIMUS BLOOD 11.1 ng/mL 10.0-20.0 Test perfor med on [employer] (AKER) (test code Architec t Immunoassay = 657) system with Chemiluminescen t Microparticle Immunoassay (CM IA) technology. Software Quality Tester ID - ADMINPOCT-GLUCOSE [id number] 08:02:14 Test Item Value Reference Range Interpretation Comments POC-GLUCOSE METER 131 mg/dL 70-110 H : TESTED A T [facility] 6720 (BEAKER) (test code = [place], 1538) [address]: Software Quality Tester/Techni zaire ID = [id number] for HENNY TANG [id number] 05:31:40 Test Item Value Reference Range Interpretation Comments PHOSPHORUS (BEAKER) (test code = 4.7 mg/dL 2.3-4.7 604) Software Quality Tester ID - ADMINHEPATIC FUNCTION [id number] 05:31:40 Test Item Value Reference Range Interpretation Comments TOTAL PROTEIN (BEAKER) (test code = 6.3 gm/dL 6.0-8.3 770) ALBUMIN (BEAKER) (test code = 1145) 3.6 g/dL 3.5-5.0 BILIRUBIN TOTAL (BEAKER) (test code 0.8 mg/dL 0.2-1.2 = 377) BILIRUBIN DIRECT (BEAKER) (test 0.3 mg/dL 0.1-0.5 code = 706) ALKALINE PHOSPHATASE (BEAKER) (test 394 U/L 40-150 H code = 346) AST (SGOT) (BEAKER) (test code = 21 U/L 5-34 353) ALT (SGPT) (BEAKER) (test code = 47 U/L 6-55 347) Software Quality Tester ID - [id number] 05:31:39 Test Item Value Reference Range Interpretation Comments MAGNESIUM (BEAKER) (test code = 1.6 mg/dL 1.6-2.6 627) Software Quality Tester ID - ADMINBASIC METABOLIC [id number] 05:31:38 Test Item Value Reference Range Interpretation Comments SODIUM (BEAKER) 137 meq/L 136-145 (test code = 381) POTASSIUM 4.1 meq/L 3.5-5.1 (BEAKER) (test code = 379) CHLORIDE (BEAKER) 103 meq/L 98-107 (test code = 382) CO2 (BEAKER) 22 meq/L 22-29 (test code = 355) BLOOD UREA 11 mg/dL 7-21 NITROGEN (BEAKER) (test code = 354) CREATININE 0.84 mg/dL 0.57-1.25 (BEAKER) (test code = 358) GLUCOSE RANDOM 121 mg/dL 70-105 H (BEAKER) (test code = 652) CALCIUM (BEAKER) 9.1 mg/dL 8.4-10.2 (test code = 697) EGFR (BEAKER) 98 Interpretatio n of eGFR (test code = [...] not appl icable for dialysis patien ts Software Quality Tester ID - ADMINPROTHROMBIN [id number] 05:10:43 Test Item Value Reference Range Interpretation Comments PROTIME (BEAKER) (test code = 15.0 seconds 11.9-14.2 H 759) INR (BEAKER) (test code = 370) 1.26 <=5.90 RECOMMENDED COUMADIN/WARFARIN INR THERAPY RANGESSTANDARD DOSE: 2.0 - 3.0 Includes: PROPHYLAXIS for venous thrombosis, systemic embolization; TREATMENT for venous thrombosis and/or pulmonary embolus.HIGH RISK: Target INR is 2.5-3.5 for patients with mechanical heart valves.CBC W/PLT COUNT & AUTO [id number] 04:51:58 Test Item Value Reference Range Interpretation Comments WHITE BLOOD CELL COUNT (BEAKER) 6.5 K/ L 3.5-10.5 (test code = 775) RED BLOOD CELL COUNT (BEAKER) 5.52 M/ L 4.63-6.08 (test code = 761) HEMOGLOBIN (BEAKER) (test code = 10.6 GM/DL 13.7-17.5 L 410) HEMATOCRIT (BEAKER) (test code = 38.4 % 40.1-51.0 L 411) MEAN CORPUSCULAR VOLUME (BEAKER) 70 fL 79-92 L (test code = 753) MEAN CORPUSCULAR HEMOGLOBIN 19.2 pg 25.7-32.2 L (BEAKER) (test code = 751) MEAN CORPUSCULAR HEMOGLOBIN CONC 27.6 GM/DL 32.3-36.5 L (BEAKER) (test code = 752) RED CELL DISTRIBUTION WIDTH 18.6 % 11.6-14.4 H (BEAKER) (test code = 412) PLATELET COUNT (BEAKER) (test 157 K/CU MM 150-450 code = 756) MEAN PLATELET VOLUME (BEAKER) 10.0 fL 9.4-12.4 (test code = 754) NUCLEATED RED BLOOD CELLS 0 /100 WBC 0-0 (BEAKER) (test code = 413) NEUTROPHILS RELATIVE PERCENT 48 % (BEAKER) (test code = 429) LYMPHOCYTES RELATIVE PERCENT 38 % (BEAKER) (test code = 430) MONOCYTES RELATIVE PERCENT 9 % (BEAKER) (test code = 431) EOSINOPHILS RELATIVE PERCENT 3 % (BEAKER) (test code = 432) BASOPHILS RELATIVE PERCENT 1 % (BEAKER) (test code = 437) NEUTROPHILS ABSOLUTE COUNT 3.11 K/ L 1.78-5.38 (BEAKER) (test code = 670) LYMPHOCYTES ABSOLUTE COUNT 2.46 K/ L 1.32-3.57 (BEAKER) (test code = 414) MONOCYTES ABSOLUTE COUNT (BEAKER) 0.61 K/ L 0.30-0.82 (test code = 415) EOSINOPHILS ABSOLUTE COUNT 0.21 K/ L 0.04-0.54 (BEAKER) (test code = 416) BASOPHILS ABSOLUTE COUNT (BEAKER) 0.08 K/ L 0.01-0.08 (test code = 417) IMMATURE GRANULOCYTES-RELATIVE 0.60 % 0.00-1.00 PERCENT (BEAKER) (test code = 2801) POCT-GLUCOSE [id number] 22:28:09 Test Item Value Reference Range Interpretation Comments POC-GLUCOSE METER 119 mg/dL 70-110 H : TESTED A T [facility] 6720 (BEAKER) (test code = [place], 1538) [address]: Software Quality Tester/Techni zaire ID = [id number] for HAYDEN SERVIN XR ABDOMEN/KUB 1 VIEW [id number] 19:04:06 [facility] : 1955 Sex: MONE VIEW ABDOMENHISTORY: Biliary stentCOMPARISON:09/19/2022FINDINGS:2 supine AP images of the abdomen were obtained.There is a stent in the region of the common bile duct. This is similarin position to the priorabdominal radiograph.No dilated bowel loops are visualized. There is gas in nondistendedstomach.The lung bases appear clear.Electronically Signed By: Curtis Almanza11/20/2022 19:06 CDTWorkstation Name: [id number] 16:14:08 Test Item Value Reference Range Interpretation Comments POC-GLUCOSE METER 238 mg/dL 70-110 H : TESTED A T [facility] [address] ([facility]) (test code = [place], 1538) [address]: Software Quality Tester/Techni zaire ID = [id number] for CORY NAPOLES TACROLIMUS [id number] 11:43:44 Test Item Value Reference Range Interpretation Comments TACROLIMUS BLOOD 12.9 ng/mL 10.0-20.0 Test perfor med on [place] ([facility]) (test code Architec t Immunoassay = 657) system with Chemiluminescen t Microparticle Immunoassay (CM IA) technology. Software Quality Tester ID - mmPOCT-GLUCOSE [id number] 11:19:44 Test Item Value Reference Range Interpretation Comments POC-GLUCOSE METER 214 mg/dL 70-110 H : TESTED A T [facility] 67[address] ([employer]) (test code = [place], 1538) [address]: Software Quality Tester/Techni zaire ID = [id number] for CORY NAPOLES POCT-GLUCOSE [id number] 07:33:49 Test Item Value Reference Range Interpretation Comments POC-GLUCOSE METER 135 mg/dL 70-110 H : TESTED A T [facility] 67[address] (BEAKER) (test code = [place], 1538) [address]: Software Quality Tester/Techni zaire ID = [id number] for C[place] CBC W/PLT COUNT & AUTO [id number] 05:46:42 Test Item Value Reference Range Interpretation Comments WHITE BLOOD CELL COUNT 6.6 K/ L 3.5-10.5 (BEAKER) (test code = 775) RED BLOOD CELL COUNT 5.51 M/ L 4.63-6.08 (BEAKER) (test code = 761) HEMOGLOBIN (BEAKER) 10.8 GM/DL 13.7-17.5 L (test code = 410) HEMATOCRIT (BEAKER) 37.9 % 40.1-51.0 L (test code = 411) MEAN CORPUSCULAR 69 fL 79-92 L VOLUME (BEAKER) (test code = 753) MEAN CORPUSCULAR 19.6 pg 25.7-32.2 L HEMOGLOBIN (BEAKER) (test code = 751) MEAN CORPUSCULAR 28.5 GM/DL 32.3-36.5 L HEMOGLOBIN CONC (BEAKER) (test code = 752) RED CELL DISTRIBUTION 18.6 % 11.6-14.4 H WIDTH (BEAKER) (test code = 412) PLATELET COUNT 159 K/CU MM 150-450 (BEAKER) (test code = 756) MEAN PLATELET VOLUME Unable to report due (BEAKER) (test code = to abn ormal Platelet 754) population distribution. NUCLEATED RED BLOOD 0 /100 WBC 0-0 CELLS (BEAKER) (test code = 413) NEUTROPHILS RELATIVE 49 % PERCENT (BEAKER) (test code = 429) LYMPHOCYTES RELATIVE 35 % PERCENT (BEAKER) (test code = 430) MONOCYTES RELATIVE 11 % PERCENT (BEAKER) (test code = 431) EOSINOPHILS RELATIVE 3 % PERCENT (BEAKER) (test code = 432) BASOPHILS RELATIVE 2 % PERCENT (BEAKER) (test code = 437) NEUTROPHILS ABSOLUTE 3.23 K/ L 1.78-5.38 COUNT (BEAKER) (test code = 670) LYMPHOCYTES ABSOLUTE 2.31 K/ L 1.32-3.57 COUNT (BEAKER) (test code = 414) MONOCYTES ABSOLUTE 0.69 K/ L 0.30-0.82 COUNT (BEAKER) (test code = 415) EOSINOPHILS ABSOLUTE 0.22 K/ L 0.04-0.54 COUNT (BEAKER) (test code = 416) BASOPHILS ABSOLUTE 0.10 K/ L 0.01-0.08 H COUNT (BEAKER) (test code = 417) IMMATURE 0.50 % 0.00-1.00 GRANULOCYTES-RELATIVE PERCENT (BEAKER) (test code = 2801) HEPATIC FUNCTION [id number] 05:45:17 Test Item Value Reference Range Interpretation Comments TOTAL PROTEIN (BEAKER) (test code = 6.1 gm/dL 6.0-8.3 770) ALBUMIN (BEAKER) (test code = 1145) 3.6 g/dL 3.5-5.0 BILIRUBIN TOTAL (BEAKER) (test code 0.7 mg/dL 0.2-1.2 = 377) BILIRUBIN DIRECT (BEAKER) (test 0.4 mg/dL 0.1-0.5 code = 706) ALKALINE PHOSPHATASE (BEAKER) (test 418 U/L 40-150 H code = 346) AST (SGOT) (BEAKER) (test code = 20 U/L 5-34 353) ALT (SGPT) (BEAKER) (test code = 58 U/L 6-55 H 347) Software Quality Tester ID - [id number] 05:45:16 Test Item Value Reference Range Interpretation Comments MAGNESIUM (BEAKER) (test code = 1.6 mg/dL 1.6-2.6 627) Software Quality Tester ID - [id number] 05:45:16 Test Item Value Reference Range Interpretation Comments PHOSPHORUS (BEAKER) (test code = 5.0 mg/dL 2.3-4.7 H 604) Software Quality Tester ID - mmBASIC METABOLIC [id number] 05:45:15 Test Item Value Reference Range Interpretation Comments SODIUM (BEAKER) 137 meq/L 136-145 (test code = 381) POTASSIUM 4.0 meq/L 3.5-5.1 (BEAKER) (test code = 379) CHLORIDE (BEAKER) 102 meq/L 98-107 (test code = 382) CO2 (BEAKER) 24 meq/L 22-29 (test code = 355) BLOOD UREA 11 mg/dL 7-21 NITROGEN (BEAKER) (test code = 354) CREATININE 0.77 mg/dL 0.57-1.25 (BEAKER) (test code = 358) GLUCOSE RANDOM 131 mg/dL 70-105 H (BEAKER) (test code = 652) CALCIUM (BEAKER) 9.1 mg/dL 8.4-10.2 (test code = 697) EGFR (BEAKER) 100 Interpretatio n of eGFR (test code = [...] not appl icable for dialysis patien ts Software Quality Tester ID - mmPROTHROMBIN TIME/[id number] 05:39:46 Test Item Value Reference Range Interpretation Comments PROTIME (BEAKER) (test code = 14.9 seconds 11.9-14.2 H 759) INR (BEAKER) (test code = 370) 1.24 <=5.90 RECOMMENDED COUMADIN/WARFARIN INR THERAPY RANGESSTANDARD DOSE: 2.0 - 3.0 Includes: PROPHYLAXIS for venous thrombosis, systemic embolization; TREATMENT for venous thrombosis and/or pulmonary embolus.HIGH RISK: Target INR is 2.5-3.5 for patients with mechanical heart valves.POCT-GLUCOSE [id number] 21:24:11 Test Item Value Reference Range Interpretation Comments POC-GLUCOSE METER 174 mg/dL 70-110 H : TESTED A T [facility] ([employer]) (test code = [place], 1538) [address]: Software Quality Tester/Techni zaire ID = [id number] for MARGOT SHIPLEY POCT-GLUCOSE [id number] 16:47:16 Test Item Value Reference Range Interpretation Comments POC-GLUCOSE METER 292 mg/dL 70-110 H : TESTED A T [facility] ([employer]) (test code = [place], 1538) [address]: Software Quality Tester/Techni zaire ID = [id number] for Go ngora, Russell POCT-GLUCOSE [id number] 13:07:40 Test Item Value Reference Range Interpretation Comments POC-GLUCOSE METER 195 mg/dL 70-110 H : TESTED A T [facility] [address] (BEAKER) (test code = [place], 1538) [address]: Software Quality Tester/Techni zaire ID = [id number] for Go ngora, Russell TACROLIMUS [id number] 10:57:21 Test Item Value Reference Range Interpretation Comments TACROLIMUS BLOOD 7.3 ng/mL 10.0-20.0 L Test perfor med on [place] (BEAKER) (test code Architec t Immunoassay = 657) system with Chemiluminescen t Microparticle I mmunoassay (CMIA) technolo gy. Software Quality Tester ID - ADMINMR ABDOMEN WITH & WITHOUT IV [id number] 08:47:05 [facility] : 1955 Sex: MMRI of the abdomen with and without contrastClinical History: Unlisted Reason for ExamHistory HCC, Liver transplantTechnique: Multiplanar and multisequence MR images of the abdomen areobtained before and after intravenous contrast administration. Contrastis administered to evaluate neoplasm and vasculature. Comparison: MRI dated May 18, 2022, ultrasound dated November 163Discussion:Patient status post liver transplant. Liver enhances somewhatheterogeneously, but no mass lesion is identified. Hepatic vasculatureis patent. The main portal vein measures 12 mm in diameter. Note is madeof 2 short segments of partial thrombosis of large varices in upperabdomen.Gallbladder is absent. There is no biliary ductal dilatation. However,wall thickening and prominent enhancement is noted in the common duct ofdonorliver. Edema is noted in the taylor hepatis.Spleen remains enlarged and measures 16.6 cm sagittally. The pancreas,and adrenal glands are normal.Kidneys demonstrate no mass or hydronephrosis.A small locule of fluid between the IVC and right diaphragmatic segundo islikely a postsurgical seroma, and measures4.4 x 3.1 cm. Nolymphadenopathy. Note is made of a large duodenal diverticulum. No bowelobstruction.No lymphadenopathy. No suspicious bony lesion. There is asmall ventral abdominal wall hernia containing fluid and omentum.IMPRESSION:Impression:Status post liver transplant. No suspicious liver mass isidentified.Hepatic vasculature is patent.No biliary ductal dilatation. Common duct of the donor liverdemonstrates wall thickening and prominent enhancement. Correlateclinically for cholangitis.Nonspecific taylor hepatis edema.A locule of fluid between the IVC and right diaphragmatic segundo likelyrepresents a postsurgical seroma.Splenomegaly.Electronically Signed By: Radha Royal11/19/2022 08:49 CDTWorkstation Name: [id number] METER 2022-11-19 07:54:27 Test Item Value Reference Range Interpretation Comments POC-GLUCOSE METER 199 mg/dL 70-110 H : TESTED A T [facility] [address] (BEAKER) (test code = [place] [facility], 1538) [address]: Software Quality Tester/Techni zaire ID = [id number] for Russell Adame [id number] 06:41:58 Test Item Value Reference Range Interpretation Comments MAGNESIUM (BEAKER) (test code = 1.8 mg/dL 1.6-2.6 627) Software Quality Tester ID - [id number] 06:41:58 Test Item Value Reference Range Interpretation Comments PHOSPHORUS (BEAKER) (test code = 4.2 mg/dL 2.3-4.7 604) Software Quality Tester ID - ADMINHEPATIC FUNCTION [id number] 06:41:58 Test Item Value Reference Range Interpretation Comments TOTAL PROTEIN (BEAKER) (test code = 6.3 gm/dL 6.0-8.3 770) ALBUMIN (BEAKER) (test code = 1145) 3.6 g/dL 3.5-5.0 BILIRUBIN TOTAL (BEAKER) (test code 0.6 mg/dL 0.2-1.2 = 377) BILIRUBIN DIRECT (BEAKER) (test 0.3 mg/dL 0.1-0.5 code = 706) ALKALINE PHOSPHATASE (BEAKER) (test 460 U/L 40-150 H code = 346) AST (SGOT) (BEAKER) (test code = 22 U/L 5-34 353) ALT (SGPT) (BEAKER) (test code = 65 U/L 6-55 H 347) Software Quality Tester ID - ADMINBASIC METABOLIC [id number] 06:41:57 Test Item Value Reference Range Interpretation Comments SODIUM (BEAKER) 137 meq/L 136-145 (test code = 381) POTASSIUM 4.1 meq/L 3.5-5.1 (BEAKER) (test code = 379) CHLORIDE (BEAKER) 104 meq/L 98-107 (test code = 382) CO2 (BEAKER) 23 meq/L 22-29 (test code = 355) BLOOD UREA 12 mg/dL 7-21 NITROGEN (BEAKER) (test code = 354) CREATININE 0.79 mg/dL 0.57-1.25 (BEAKER) (test code = 358) GLUCOSE RANDOM 131 mg/dL 70-105 H (BEAKER) (test code = 652) CALCIUM (BEAKER) 8.7 mg/dL 8.4-10.2 (test code = 697) EGFR (BEAKER) 99 Interpretatio n of eGFR (test code = [...] not appl icable for dialysis patien ts Software Quality Tester ID - ADMINPROTHROMBIN [id number] 06:29:40 Test Item Value Reference Range Interpretation Comments PROTIME (BEAKER) (test code = 13.9 seconds 11.9-14.2 759) INR (BEAKER) (test code = 370) 1.09 <=5.90 RECOMMENDED COUMADIN/WARFARIN INR THERAPY RANGESSTANDARD DOSE: 2.0 - 3.0 Includes: PROPHYLAXIS for venous thrombosis, systemic embolization; TREATMENT for venous thrombosis and/or pulmonary embolus.HIGH RISK: Target INR is 2.5-3.5 for patients with mechanical heart valves.CBC W/PLT COUNT & AUTO [id number] 06:27:47 Test Item Value Reference Range Interpretation Comments WHITE BLOOD CELL COUNT (BEAKER) 6.6 K/ L 3.5-10.5 (test code = 775) RED BLOOD CELL COUNT (BEAKER) 5.53 M/ L 4.63-6.08 (test code = 761) HEMOGLOBIN (BEAKER) (test code = 10.7 GM/DL 13.7-17.5 L 410) HEMATOCRIT (BEAKER) (test code = 38.7 % 40.1-51.0 L 411) MEAN CORPUSCULAR VOLUME (BEAKER) 70 fL 79-92 L (test code = 753) MEAN CORPUSCULAR HEMOGLOBIN 19.3 pg 25.7-32.2 L (BEAKER) (test code = 751) MEAN CORPUSCULAR HEMOGLOBIN CONC 27.6 GM/DL 32.3-36.5 L (BEAKER) (test code = 752) RED CELL DISTRIBUTION WIDTH 18.1 % 11.6-14.4 H (BEAKER) (test code = 412) PLATELET COUNT (BEAKER) (test 188 K/CU MM 150-450 code = 756) MEAN PLATELET VOLUME (BEAKER) 10.3 fL 9.4-12.4 (test code = 754) NUCLEATED RED BLOOD CELLS 0 /100 WBC 0-0 (BEAKER) (test code = 413) NEUTROPHILS RELATIVE PERCENT 52 % (BEAKER) (test code = 429) LYMPHOCYTES RELATIVE PERCENT 32 % (BEAKER) (test code = 430) MONOCYTES RELATIVE PERCENT 11 % (BEAKER) (test code = 431) EOSINOPHILS RELATIVE PERCENT 3 % (BEAKER) (test code = 432) BASOPHILS RELATIVE PERCENT 2 % (BEAKER) (test code = 437) NEUTROPHILS ABSOLUTE COUNT 3.38 K/ L 1.78-5.38 (BEAKER) (test code = 670) LYMPHOCYTES ABSOLUTE COUNT 2.12 K/ L 1.32-3.57 (BEAKER) (test code = 414) MONOCYTES ABSOLUTE COUNT (BEAKER) 0.69 K/ L 0.30-0.82 (test code = 415) EOSINOPHILS ABSOLUTE COUNT 0.22 K/ L 0.04-0.54 (BEAKER) (test code = 416) BASOPHILS ABSOLUTE COUNT (AKER) 0.11 K/ L 0.01-0.08 H (test code = 417) IMMATURE GRANULOCYTES-RELATIVE 0.50 % 0.00-1.00 PERCENT (AKER) (test code = 2801) POCT-GLUCOSE [id number] 22:29:55 Test Item Value Reference Range Interpretation Comments POC-GLUCOSE METER 200 mg/dL 70-110 H : TESTED A T [facility] ([facility]) (test code = [place], 1538) [address]: Software Quality Tester/Techni zaire ID = [id number] for Ar enas, Sherman POCT-GLUCOSE [id number] 16:34:24 Test Item Value Reference Range Interpretation Comments POC-GLUCOSE METER 285 mg/dL 70-110 H : TESTED A T [facility] [address] ([facility]) (test code = [place], 1538) [address]: Software Quality Tester/Techni zaire ID = [id number] for Go ngora, Russell POCT-GLUCOSE [id number] 13:03:11 Test Item Value Reference Range Interpretation Comments POC-GLUCOSE METER 176 mg/dL 70-110 H : TESTED A T [facility] [address] ([facility]) (test code = [place], 1538) [address]: Software Quality Tester/Techni zaire ID = [id number] for Go ngora, Russell TACROLIMUS [id number] 10:24:59 Test Item Value Reference Range Interpretation Comments TACROLIMUS BLOOD 7.0 ng/mL 10.0-20.0 L Test perfor med on [place] ([facility]) (test code Architec t Immunoassay = 657) system with Chemiluminescen t Microparticle I mmunoassay (CMIA) omi khanna Software Quality Tester ID - ADMINPOCT-GLUCOSE [id number] 08:31:31 Test Item Value Reference Range Interpretation Comments POC-GLUCOSE METER 131 mg/dL 70-110 H : TESTED A T [facility] 67[address] (BEAKER) (test code = [place], 1538) [address]: Software Quality Tester/Techni zaire ID = [id number] for Russell Adame [id number] 06:38:31 Test Item Value Reference Range Interpretation Comments PHOSPHORUS (BEAKER) (test code = 4.3 mg/dL 2.3-4.7 604) Software Quality Tester ID - MMHEPATIC FUNCTION [id number] 06:38:31 Test Item Value Reference Range Interpretation Comments TOTAL PROTEIN (BEAKER) (test code = 5.8 gm/dL 6.0-8.3 L 770) ALBUMIN (BEAKER) (test code = 1145) 3.4 g/dL 3.5-5.0 L BILIRUBIN TOTAL (BEAKER) (test code 0.6 mg/dL 0.2-1.2 = 377) BILIRUBIN DIRECT (BEAKER) (test 0.3 mg/dL 0.1-0.5 code = 706) ALKALINE PHOSPHATASE (BEAKER) (test 472 U/L 40-150 H code = 346) AST (SGOT) (BEAKER) (test code = 29 U/L 5-34 353) ALT (SGPT) (BEAKER) (test code = 82 U/L 6-55 H 347) Software Quality Tester ID - BASIC METABOLIC [id number] 06:38:30 Test Item Value Reference Range Interpretation Comments SODIUM (BEAKER) 140 meq/L 136-145 (test code = 381) POTASSIUM 3.9 meq/L 3.5-5.1 (BEAKER) (test code = 379) CHLORIDE (BEAKER) 107 meq/L 98-107 (test code = 382) CO2 (BEAKER) 24 meq/L 22-29 (test code = 355) BLOOD UREA 12 mg/dL 7-21 NITROGEN (BEAKER) (test code = 354) CREATININE 0.76 mg/dL 0.57-1.25 (BEAKER) (test code = 358) GLUCOSE RANDOM 126 mg/dL 70-105 H (BEAKER) (test code = 652) CALCIUM (BEAKER) 8.7 mg/dL 8.4-10.2 (test code = 697) EGFR (BEAKER) 100 Interpretatio n of eGFR (test code = [...] not appl icable for dialysis patien ts Software Quality Tester ID - [id number] 06:38:30 Test Item Value Reference Range Interpretation Comments MAGNESIUM (BEAKER) (test code = 1.6 mg/dL 1.6-2.6 627) Software Quality Tester ID - MMCBC W/PLT COUNT & AUTO [id number] 06:23:58 Test Item Value Reference Range Interpretation Comments WHITE BLOOD CELL COUNT (BEAKER) 6.0 K/ L 3.5-10.5 (test code = 775) RED BLOOD CELL COUNT (BEAKER) 5.26 M/ L 4.63-6.08 (test code = 761) HEMOGLOBIN (BEAKER) (test code = 10.4 GM/DL 13.7-17.5 L 410) HEMATOCRIT (BEAKER) (test code = 37.0 % 40.1-51.0 L 411) MEAN CORPUSCULAR VOLUME (BEAKER) 70 fL 79-92 L (test code = 753) MEAN CORPUSCULAR HEMOGLOBIN 19.8 pg 25.7-32.2 L (BEAKER) (test code = 751) MEAN CORPUSCULAR HEMOGLOBIN CONC 28.1 GM/DL 32.3-36.5 L (BEAKER) (test code = 752) RED CELL DISTRIBUTION WIDTH 17.9 % 11.6-14.4 H (BEAKER) (test code = 412) PLATELET COUNT (BEAKER) (test 164 K/CU MM 150-450 code = 756) MEAN PLATELET VOLUME (BEAKER) 9.9 fL 9.4-12.4 (test code = 754) NUCLEATED RED BLOOD CELLS 0 /100 WBC 0-0 (BEAKER) (test code = 413) NEUTROPHILS RELATIVE PERCENT 52 % (BEAKER) (test code = 429) LYMPHOCYTES RELATIVE PERCENT 32 % (BEAKER) (test code = 430) MONOCYTES RELATIVE PERCENT 11 % (BEAKER) (test code = 431) EOSINOPHILS RELATIVE PERCENT 4 % (BEAKER) (test code = 432) BASOPHILS RELATIVE PERCENT 1 % (BEAKER) (test code = 437) NEUTROPHILS ABSOLUTE COUNT 3.12 K/ L 1.78-5.38 (BEAKER) (test code = 670) LYMPHOCYTES ABSOLUTE COUNT 1.93 K/ L 1.32-3.57 (BEAKER) (test code = 414) MONOCYTES ABSOLUTE COUNT (BEAKER) 0.63 K/ L 0.30-0.82 (test code = 415) EOSINOPHILS ABSOLUTE COUNT 0.21 K/ L 0.04-0.54 (BEAKER) (test code = 416) BASOPHILS ABSOLUTE COUNT (BEAKER) 0.08 K/ L 0.01-0.08 (test code = 417) IMMATURE GRANULOCYTES-RELATIVE 0.70 % 0.00-1.00 PERCENT (BEAKER) (test code = 2801) PROTHROMBIN [id number] 06:09:55 Test Item Value Reference Range Interpretation Comments PROTIME (BEAKER) (test code = 14.9 seconds 11.9-14.2 H 759) INR (BEAKER) (test code = 370) 1.24 <=5.90 RECOMMENDED COUMADIN/WARFARIN INR THERAPY RANGESSTANDARD DOSE: 2.0 - 3.0 Includes: PROPHYLAXIS for venous thrombosis, systemic embolization; TREATMENT for venous thrombosis and/or pulmonary embolus.HIGH RISK: Target INR is 2.5-3.5 for patients with mechanical heart valves.POCT-GLUCOSE [id number] 22:21:38 Test Item Value Reference Range Interpretation Comments POC-GLUCOSE METER 226 mg/dL 70-110 H : TESTED A T [facility] 6720 (BEAKER) (test code = [place] [facility], 1538) [address]: Software Quality Tester/Techni zaire ID = [id number] for HAYDEN SERVIN POCT-GLUCOSE [id number] 16:45:51 Test Item Value Reference Range Interpretation Comments POC-GLUCOSE METER 320 mg/dL 70-110 H : TESTED A T [facility] 6720 (BEAKER) (test code = [place] [facility], 1538) [address]: Software Quality Tester/Techni zaire ID = [id number] for OR DINMISSAEL HOWARDA POCT-GLUCOSE [id number] 12:48:07 Test Item Value Reference Range Interpretation Comments POC-GLUCOSE METER 196 mg/dL 70-110 H : TESTED A T [facility] [address] ([employer]) (test code = [place], 1538) [address]: Software Quality Tester/Techni zaire ID = [id number] for Ly , Tram TACROLIMUS [id number] 09:59:48 Test Item Value Reference Range Interpretation Comments TACROLIMUS BLOOD 5.5 ng/mL 10.0-20.0 L Test perfor med on [place] (BEAKER) (test code Architec t Immunoassay = 657) system with Chemiluminescen t Microparticle I mmunoassay (CMIA) technolo clemente. Software Quality Tester ID - ADMINPOCT-GLUCOSE [id number] 09:03:07 Test Item Value Reference Range Interpretation Comments POC-GLUCOSE METER 162 mg/dL 70-110 H : TESTED A T [facility] [address] ([employer]) (test code = [facility] [place], 1538) [address]: Software Quality Tester/Techni zaire ID = [id number] for Wr ight (DivFlt), Brittni HEPATIC FUNCTION [id number] 07:02:14 Test Item Value Reference Range Interpretation Comments TOTAL PROTEIN (BEAKER) (test code = 6.1 gm/dL 6.0-8.3 770) ALBUMIN (BEAKER) (test code = 1145) 3.6 g/dL 3.5-5.0 BILIRUBIN TOTAL (BEAKER) (test code 0.6 mg/dL 0.2-1.2 = 377) BILIRUBIN DIRECT (BEAKER) (test 0.3 mg/dL 0.1-0.5 code = 706) ALKALINE PHOSPHATASE (BEAKER) (test 554 U/L 40-150 H code = 346) AST (SGOT) (BEAKER) (test code = 42 U/L 5-34 H 353) ALT (SGPT) (BEAKER) (test code = 102 U/L 6-55 H 347) Software Quality Tester ID - MMBASIC METABOLIC [id number] 07:02:13 Test Item Value Reference Range Interpretation Comments SODIUM (BEAKER) 138 meq/L 136-145 (test code = 381) POTASSIUM 4.4 meq/L 3.5-5.1 (BEAKER) (test code = 379) CHLORIDE (BEAKER) 107 meq/L 98-107 (test code = 382) CO2 (BEAKER) 22 meq/L 22-29 (test code = 355) BLOOD UREA 12 mg/dL 7-21 NITROGEN (BEAKER) (test code = 354) CREATININE 0.76 mg/dL 0.57-1.25 (BEAKER) (test code = 358) GLUCOSE RANDOM 181 mg/dL 70-105 H (BEAKER) (test code = 652) CALCIUM (BEAKER) 8.9 mg/dL 8.4-10.2 (test code = 697) EGFR (BEAKER) 100 Interpretatio n of eGFR (test code = [...] not appl icable for dialysis patien ts Software Quality Tester ID - [id number] 07:02:13 Test Item Value Reference Range Interpretation Comments MAGNESIUM (BEAKER) (test code = 1.5 mg/dL 1.6-2.6 L 627) Software Quality Tester ID - [id number] 07:02:13 Test Item Value Reference Range Interpretation Comments PHOSPHORUS (BEAKER) (test code = 3.8 mg/dL 2.3-4.7 604) Software Quality Tester ID - MMPROTHROMBIN [id number] 06:41:20 Test Item Value Reference Range Interpretation Comments PROTIME (BEAKER) (test code = 14.3 seconds 11.9-14.2 H 759) INR (BEAKER) (test code = 370) 1.18 <=5.90 RECOMMENDED COUMADIN/WARFARIN INR THERAPY RANGESSTANDARD DOSE: 2.0 - 3.0 Includes: PROPHYLAXIS for venous thrombosis, systemic embolization; TREATMENT for venous thrombosis and/or pulmonary embolus.HIGH RISK: Target INR is 2.5-3.5 for patients with mechanical heart valves.CBC W/PLT COUNT & AUTO [id number] 06:34:15 Test Item Value Reference Range Interpretation Comments WHITE BLOOD CELL COUNT 6.5 K/ L 3.5-10.5 (BEAKER) (test code = 775) RED BLOOD CELL COUNT 5.20 M/ L 4.63-6.08 (BEAKER) (test code = 761) HEMOGLOBIN (BEAKER) 10.3 GM/DL 13.7-17.5 L (test code = 410) HEMATOCRIT (BEAKER) 36.0 % 40.1-51.0 L (test code = 411) MEAN CORPUSCULAR 69 fL 79-92 L VOLUME (BEAKER) (test code = 753) MEAN CORPUSCULAR 19.8 pg 25.7-32.2 L HEMOGLOBIN (BEAKER) (test code = 751) MEAN CORPUSCULAR 28.6 GM/DL 32.3-36.5 L HEMOGLOBIN CONC (BEAKER) (test code = 752) RED CELL DISTRIBUTION 18.3 % 11.6-14.4 H WIDTH (BEAKER) (test code = 412) PLATELET COUNT 158 K/CU MM 150-450 (BEAKER) (test code = 756) MEAN PLATELET VOLUME Unable to report due (BEAKER) (test code = to abn ormal Platelet 754) population distribution. NUCLEATED RED BLOOD 0 /100 WBC 0-0 CELLS (BEAKER) (test code = 413) NEUTROPHILS RELATIVE 68 % PERCENT (BEAKER) (test code = 429) LYMPHOCYTES RELATIVE 22 % PERCENT (BEAKER) (test code = 430) MONOCYTES RELATIVE 8 % PERCENT (BEAKER) (test code = 431) EOSINOPHILS RELATIVE 1 % PERCENT (BEAKER) (test code = 432) BASOPHILS RELATIVE 1 % PERCENT (BEAKER) (test code = 437) NEUTROPHILS ABSOLUTE 4.43 K/ L 1.78-5.38 COUNT (BEAKER) (test code = 670) LYMPHOCYTES ABSOLUTE 1.41 K/ L 1.32-3.57 COUNT (BEAKER) (test code = 414) MONOCYTES ABSOLUTE 0.49 K/ L 0.30-0.82 COUNT (BEAKER) (test code = 415) EOSINOPHILS ABSOLUTE 0.04 K/ L 0.04-0.54 COUNT (BEAKER) (test code = 416) BASOPHILS ABSOLUTE 0.08 K/ L 0.01-0.08 COUNT (BEAKER) (test code = 417) IMMATURE 0.60 % 0.00-1.00 GRANULOCYTES-RELATIVE PERCENT (BEAKER) (test code = 2801) URINALYSIS W/ REFLEX URINE [id number] 23:16:17 Test Item Value Reference Range Interpretation Comments COLOR (BEAKER) (test code = 470) Light Yellow CLARITY (BEAKER) (test code = Clear 469) SPECIFIC GRAVITY UA (BEAKER) 1.020 1.001-1.035 (test code = 468) PH UA (BEAKER) (test code = 467) 6.5 5.0-8.0 PROTEIN UA (BEAKER) (test code = Negative Negative 464) GLUCOSE UA (BEAKER) (test code = Negative Negative 365) KETONES UA (BEAKER) (test code = Negative Negative 371) BILIRUBIN UA (BEAKER) (test code Negative Negative = 462) BLOOD UA (BEAKER) (test code = Negative Negative 461) NITRITE UA (BEAKER) (test code = Negative Negative 465) LEUKOCYTE ESTERASE UA (BEAKER) Negative Negative (test code = 466) UROBILINOGEN UA (BEAKER) (test 0.2 0.2-1.0 code = 463) RBC UA (BEAKER) (test code = 0 /HPF 519) WBC UA (BEAKER) (test code = 2 /HPF 520) SQUAMOUS EPITHELIAL (BEAKER) 1 /HPF (test code = 516) SOURCE(BEAKER) (test code = 2795) Software Quality Tester ID - [auto]Software Quality Tester ID - [email or web address] [id number] 21:21:33 [facility] : 1955 Sex: MEXAM/TECHNIQUE: Limited ultrasound of the abdomen, right upper quadrantwith Doppler ultrasound.INDICATION: Orthotopic liver transplant with rejection.COMPARISON: MRI abdomen from 11/09/2022, abdominal ultrasoundfrom09/18/2022.FINDINGS: Liver: The liver is subtly irregular in contour, measuring 16.5 cm,without focal mass. No focal solid mass is present, though there isfluid at the inferior margin of the right liver.Biliary: The gallbladder surgically absent. The common bile ductmeasures 4 mm.Pancreas: The visualized pancreas is unremarkable in appearance.Right kidney: The right kidney measures 11.3 x 5.3 x 5.0 cm. Nohydronephrosis or focal mass.Vasculature: The aorta is grossly unremarkable in appearance. There ishepatopetal flow of the main, right, and left portal veins with the mainportal vein diameter measuring 15 mm. The proper, right, and lefthepatic arteries are patent with resistive indices of 0.6, 0.5, and 0.5,normal. The IVC, right hepatic vein, middle hepatic vein, and lefthepatic veins are patent. The splenic vein demonstrates hepatopetal flowand is patent. The splenic artery is patent. Normalcolor and spectralDoppler of the remainder of the visualized vasculature.IMPRESSION:Impression:1. Slightly irregular contour of the liver could represent earlyfibrosis. Elevated size of the main portalvein could represent portalvenous congestion. 2. No occlusion or findings of hepatic artery stenosis.Electronically Signed By: Jesse Sweeney11/16/2022 21:24 CDTWorkstation Name: [id number] ABDOMEN [id number] 21:21:33 [facility] : 1955 Sex: MEXAM/TECHNIQUE: Limited ultrasound of the abdomen, right upper quadrantwith Doppler ultrasound.INDICATION: Orthotopic liver transplant with rejection.COMPARISON: MRI abdomen from 11/09/2022, abdominal ultrasoundfrom09/18/2022.FINDINGS: Liver: The liver is subtly irregular in contour, measuring 16.5 cm,without focal mass. No focal solid mass is present, though there isfluid at the inferior margin of the right liver.Biliary: The gallbladder surgically absent. The common bile ductmeasures 4 mm.Pancreas: The visualized pancreas is unremarkable in appearance.Right kidney: The right kidney measures 11.3 x 5.3 x 5.0 cm. Nohydronephrosis or focal mass.Vasculature: The aorta is grossly unremarkable in appearance. There ishepatopetal flow of the main, right, and left portal veins with the mainportal vein diameter measuring 15 mm. The proper, right, and lefthepatic arteries are patent with resistive indices of 0.6, 0.5, and 0.5,normal. The IVC, right hepatic vein, middle hepatic vein, and lefthepatic veins are patent. The splenic vein demonstrates hepatopetal flowand is patent. The splenic artery is patent. Normalcolor and spectralDoppler of the remainder of the visualized vasculature.IMPRESSION:Impression:1. Slightly irregular contour of the liver could represent earlyfibrosis. Elevated size of the main portalvein could represent portalvenous congestion. 2. No occlusion or findings of hepatic artery stenosis.Electronically Signed By: Jesse Sweeney11/16/2022 21:24 CDTWorkstation Name: [id number] 21:16:37 Test Item Value Reference Range Interpretation Comments POC-GLUCOSE METER 134 mg/dL 70-110 H : TESTED A T [facility] 6720 (BEJOSE) (test code = NICOLE ALAN PR, 1538) 474[address]: Software Quality Tester/Techni zaire ID = [id number] for YAEL SAENZ XR CHEST 1 VIEW PORTABLE / [id number] 20:16:52 [facility] : 1955 Sex: MChest, 1 view, 11/16/2022 7:21 PM.History: History of lung transplant.Comparison: 09/05/2022.Discussion: The cardiomediastinal silhouette and pulmonary vasculatureare within normal limits for a portable exam. The lungs are clearwithout evidence of consolidation or effusion. The soft tissues andosseous structures are intact.IMPRESSION:No acute cardiopulmonary abnormality.Electronically Signed By: Marion Jaime11/16/2022 20:19 CDTWorkstation Name: [id number] 12:11:38 Test Item Value Reference Range Interpretation Comments TACROLIMUS BLOOD 12.4 ng/mL 10.0-20.0 Test perfor med on Calhoun (BEAKER) (test code Architec t Immunoassay = 657) system with Chemiluminescen t Microparticle Immunoassay (CM IA) technology. Software Quality Tester ID - [id number] 10:58:16 Test Item Value Reference Range Interpretation Comments MAGNESIUM (BEAKER) (test code = 1.5 mg/dL 1.6-2.6 L 627) [id number] 10:58:16 Test Item Value Reference Range Interpretation Comments PHOSPHORUS (BEAKER) (test code = 3.8 mg/dL 2.3-4.7 604) BILIRUBIN, [id number] 10:58:16 Test Item Value Reference Range Interpretation Comments BILIRUBIN DIRECT (BEAKER) (test 0.3 mg/dL 0.1-0.5 code = 706) COMPREHENSIVE METABOLIC [id number] 10:58:15 Test Item Value Reference Range Interpretation Comments TOTAL PROTEIN 6.1 gm/dL 6.0-8.3 (BEAKER) (test code = 770) ALBUMIN (BEAKER) 3.5 g/dL 3.5-5.0 (test code = 1145) ALKALINE 566 U/L 40-150 H PHOSPHATASE (BEAKER) (test code = 346) BILIRUBIN TOTAL 0.7 mg/dL 0.2-1.2 (BEAKER) (test code = 377) SODIUM (BEAKER) 138 meq/L 136-145 (test code = 381) POTASSIUM (BEAKER) 4.3 meq/L 3.5-5.1 (test code = 379) CHLORIDE (BEAKER) 106 meq/L 98-107 (test code = 382) CO2 (BEAKER) (test 23 meq/L 22-29 code = 355) BLOOD UREA 15 mg/dL 7-21 NITROGEN (BEAKER) (test code = 354) CREATININE 0.76 mg/dL 0.57-1.25 (BEAKER) (test code = 358) GLUCOSE RANDOM 122 mg/dL 70-105 H (BEAKER) (test code = 652) CALCIUM (BEAKER) 8.7 mg/dL 8.4-10.2 (test code = 697) AST (SGOT) 62 U/L 5-34 H (BEAKER) (test code = 353) ALT (SGPT) 115 U/L 6-55 H (BEAKER) (test code = 347) EGFR (BEAKER) 100 Interpretatio n of eGFR (test code = 1092) mL/min/1.[address] age Description sq m Result G1 Shahnaz l or [...] not appl icable for dialysis patien ts CBC W/PLT COUNT & AUTO [id number] 10:45:52 Test Item Value Reference Range Interpretation Comments WHITE BLOOD CELL COUNT (BEAKER) 7.5 K/ L 3.5-10.5 (test code = 775) RED BLOOD CELL COUNT (BEAKER) 5.32 M/ L 4.63-6.08 (test code = 761) HEMOGLOBIN (BEAKER) (test code = 10.4 GM/DL 13.7-17.5 L 410) HEMATOCRIT (BEAKER) (test code = 37.0 % 40.1-51.0 L 411) MEAN CORPUSCULAR VOLUME (BEAKER) 70 fL 79-92 L (test code = 753) MEAN CORPUSCULAR HEMOGLOBIN 19.5 pg 25.7-32.2 L (BEAKER) (test code = 751) MEAN CORPUSCULAR HEMOGLOBIN CONC 28.1 GM/DL 32.3-36.5 L (BEAKER) (test code = 752) RED CELL DISTRIBUTION WIDTH 18.1 % 11.6-14.4 H (BEAKER) (test code = 412) PLATELET COUNT (BEAKER) (test 155 K/CU MM 150-450 code = 756) MEAN PLATELET VOLUME (BEAKER) 10.7 fL 9.4-12.4 (test code = 754) NUCLEATED RED BLOOD CELLS 0 /100 WBC 0-0 (BEAKER) (test code = 413) NEUTROPHILS RELATIVE PERCENT 76 % (BEAKER) (test code = 429) LYMPHOCYTES RELATIVE PERCENT 16 % (BEAKER) (test code = 430) MONOCYTES RELATIVE PERCENT 5 % (BEAKER) (test code = 431) EOSINOPHILS RELATIVE PERCENT 2 % (BEAKER) (test code = 432) BASOPHILS RELATIVE PERCENT 1 % (BEAKER) (test code = 437) NEUTROPHILS ABSOLUTE COUNT 5.72 K/ L 1.78-5.38 H (BEAKER) (test code = 670) LYMPHOCYTES ABSOLUTE COUNT 1.17 K/ L 1.32-3.57 L (BEAKER) (test code = 414) MONOCYTES ABSOLUTE COUNT (BEAKER) 0.38 K/ L 0.30-0.82 (test code = 415) EOSINOPHILS ABSOLUTE COUNT 0.14 K/ L 0.04-0.54 (BEAKER) (test code = 416) BASOPHILS ABSOLUTE COUNT (BEAKER) 0.08 K/ L 0.01-0.08 (test code = 417) IMMATURE GRANULOCYTES-RELATIVE 0.50 % 0.00-1.00 PERCENT (BEAKER) (test code = 2801) CT CHEST WITHOUT IV [id number] 16:10:45 [facility] : 1955 Sex: MEXAM: CTChest WITHOUT contrastINDICATION: Unlisted Reason for ExamHisytory HCC, liver traansplant Unlisted Reason for ExamHisytory HCC, liver traansplant COMPARISON: Chest CT, 05/18/2022TECHNIQUE:Chest was scanned utilizing a multidetector helical scanner from thelung apex through the level of the adrenal glands without administrationof IV contrast. Absence of intravenous contrast decreases sensitivityfor detection of lymphadenopathy and vascular pathology. Coronal andsagittal reformations were obtained. Routine protocol was performed. IV CONTRAST: NoneCOMPLICATIONS: None RADIATION DOSE: Total DLP: 325.79 mGy*cm Estimated effective dose: (DLP x 0.014 x size factor) mSv Radiation dose reduction: This exam was performed according to thedepartmental dose optimization program, which includes a limitedexposure control, adjustment of the mA and/or KV according to patientsize and/or use of iterative reconstruction technique. FINDINGS:Annotations given as (series/image number)LINES/ TUBES: Bile duct stent is noted.LUNGS AND AIRWAYS: No pulmonary consolidation or suspicious airspaceopacity. There is a 4 mm fissural nodule in the right middle lobe whichappears stable from last exam allowing for the thicker slices of theprevious study, likely fissural lymph node. There is a stable 8 mmgroundglass nodule in theapical right lower lobe (series 2, image 56).No other airspace opacities. Trachea and main bronchi are clear.PLEURA: The pleural spaces are clear.HEART AND MEDIASTINUM: The thyroid gland is normal. No mediastinal,hilar or axillary lymphadenopathy. The heart is normal in size. Tracepericardial effusion. Unremarkable thoracic aorta with scatteredcalcified plaque. Ascending aorta or main pulmonary artery are normaldiameter. Moderate coronary artery calcification and calcification inthe aortic valve. The esophagus is not dilated.UPPER ABDOMEN: Included portions of the upper abdominal structures showa stent in the main bile duct. There has been interval liver transplanton 08/17/2022 in the liver no longer has a cirrhotic morphology. There zahida small hiatus hernia.BONES: No acute or suspicious bony lesions.SOFT TISSUES: Superficial surrounding soft tissue unremarkable.IMPRESSION:1. No pulmonary consolidation or suspicious airspace opacity. An 8 mmgroundglass nodule in the apical right lower lobe is stable. Recommendattention on follow-up exam.2. Interval liver transplant.3. Coronary artery and aortic valvular calcification.Electronically Signed By: Urbano Blakely11/11/2022 16:12 CDTWorkstation Name: [id number] 07:57:30 Test Item Value Reference Range Interpretation Comments SCAN RESULT (test code = see scanned report [id number]) SEE ATTACHMENTTACROLIMUS [id number] 13:42:34 Test Item Value Reference Range Interpretation Comments TACROLIMUS BLOOD 6.6 ng/mL 10.0-20.0 L Test perfor med on Calhoun (BEAKER) (test code Architec t Immunoassay = 657) system with Chemiluminescen t Microparticle I mmunoassay (CMIA) technolo gy. Software Quality Tester ID - ADMINBILIRUBIN, [id number] 10:53:32 Test Item Value Reference Range Interpretation Comments BILIRUBIN DIRECT (BEAKER) (test code < mg/dL 0.1-0.5 L = 706) Software Quality Tester ID - EDCOMPREHENSIVE METABOLIC [id number] 10:52:22 Test Item Value Reference Range Interpretation Comments TOTAL PROTEIN 6.4 gm/dL 6.0-8.3 (BEAKER) (test code = 770) ALBUMIN (BEAKER) 3.5 g/dL 3.5-5.0 (test code = 1145) ALKALINE 540 U/L 40-150 H PHOSPHATASE (BEAKER) (test code = 346) BILIRUBIN TOTAL 0.7 mg/dL 0.2-1.2 (BEAKER) (test code = 377) SODIUM (BEAKER) 139 meq/L 136-145 (test code = 381) POTASSIUM (BEAKER) 4.1 meq/L 3.5-5.1 (test code = 379) CHLORIDE (BEAKER) 106 meq/L 98-107 (test code = 382) CO2 (BEAKER) (test 23 meq/L 22-29 code = 355) BLOOD UREA 17 mg/dL 7-21 NITROGEN (BEAKER) (test code = 354) CREATININE 0.79 mg/dL 0.57-1.25 (BEAKER) (test code = 358) GLUCOSE RANDOM 134 mg/dL 70-105 H (BEAKER) (test code = 652) CALCIUM (BEAKER) 8.8 mg/dL 8.4-10.2 (test code = 697) AST (SGOT) 59 U/L 5-34 H (BEAKER) (test code = 353) ALT (SGPT) 93 U/L 6-55 H (BEAKER) (test code = 347) EGFR (BEAKER) 99 Interpretatio n of eGFR (test code = 1092) mL/min/1.[address] age Description sq m Result G1 Shahnaz l or [...] not appl icable for dialysis patien ts Software Quality Tester ID - [id number] 10:52:22 Test Item Value Reference Range Interpretation Comments MAGNESIUM (BEAKER) (test code = 1.6 mg/dL 1.6-2.6 627) Software Quality Tester ID - [id number] 10:52:22 Test Item Value Reference Range Interpretation Comments PHOSPHORUS (BEAKER) (test code = 3.9 mg/dL 2.3-4.7 604) Software Quality Tester ID - EDCBC W/PLT COUNT & AUTO [id number] 10:26:18 Test Item Value Reference Range Interpretation Comments WHITE BLOOD CELL COUNT (BEAKER) 8.3 K/ L 3.5-10.5 (test code = 775) RED BLOOD CELL COUNT (BEAKER) 5.41 M/ L 4.63-6.08 (test code = 761) HEMOGLOBIN (BEAKER) (test code = 10.7 GM/DL 13.7-17.5 L 410) HEMATOCRIT (BEAKER) (test code = 37.3 % 40.1-51.0 L 411) MEAN CORPUSCULAR VOLUME (BEAKER) 69 fL 79-92 L (test code = 753) MEAN CORPUSCULAR HEMOGLOBIN 19.8 pg 25.7-32.2 L (BEAKER) (test code = 751) MEAN CORPUSCULAR HEMOGLOBIN CONC 28.7 GM/DL 32.3-36.5 L (BEAKER) (test code = 752) RED CELL DISTRIBUTION WIDTH 18.2 % 11.6-14.4 H (BEAKER) (test code = 412) PLATELET COUNT (BEAKER) (test 176 K/CU MM 150-450 code = 756) MEAN PLATELET VOLUME (BEAKER) 9.8 fL 9.4-12.4 (test code = 754) NUCLEATED RED BLOOD CELLS 0 /100 WBC 0-0 (BEAKER) (test code = 413) NEUTROPHILS RELATIVE PERCENT 74 % (BEAKER) (test code = 429) LYMPHOCYTES RELATIVE PERCENT 17 % (BEAKER) (test code = 430) MONOCYTES RELATIVE PERCENT 6 % (BEAKER) (test code = 431) EOSINOPHILS RELATIVE PERCENT 2 % (BEAKER) (test code = 432) BASOPHILS RELATIVE PERCENT 1 % (BEAKER) (test code = 437) NEUTROPHILS ABSOLUTE COUNT 6.12 K/ L 1.78-5.38 H (BEAKER) (test code = 670) LYMPHOCYTES ABSOLUTE COUNT 1.37 K/ L 1.32-3.57 (BEAKER) (test code = 414) MONOCYTES ABSOLUTE COUNT (BEAKER) 0.49 K/ L 0.30-0.82 (test code = 415) EOSINOPHILS ABSOLUTE COUNT 0.19 K/ L 0.04-0.54 (BEAKER) (test code = 416) BASOPHILS ABSOLUTE COUNT (BEAKER) 0.08 K/ L 0.01-0.08 (test code = 417) IMMATURE GRANULOCYTES-RELATIVE 0.70 % 0.00-1.00 PERCENT (BEAKER) (test code = 2801) TACROLIMUS [id number] 12:00:23 Test Item Value Reference Range Interpretation Comments TACROLIMUS BLOOD 8.4 ng/mL 10.0-20.0 L Test perfor med on Calhoun (BEAKER) (test code Architec t Immunoassay = 657) system with Chemiluminescen t Microparticle I mmunoassay (CMIA) technkelby cornejo. Software Quality Tester ID - [id number] 10:31:29 Test Item Value Reference Range Interpretation Comments PHOSPHORUS (BEAKER) (test code = 3.2 mg/dL 2.3-4.7 604) Software Quality Tester ID - edBILIRUBIN, [id number] 10:31:29 Test Item Value Reference Range Interpretation Comments BILIRUBIN DIRECT (BEAKER) (test 0.4 mg/dL 0.1-0.5 code = 706) Software Quality Tester ID - edCOMPREHENSIVE METABOLIC [id number] 10:31:28 Test Item Value Reference Range Interpretation Comments TOTAL PROTEIN 6.0 gm/dL 6.0-8.3 (BEAKER) (test code = 770) ALBUMIN (BEAKER) 3.3 g/dL 3.5-5.0 L (test code = 1145) ALKALINE 384 U/L 40-150 H PHOSPHATASE (BEAKER) (test code = 346) BILIRUBIN TOTAL 0.7 mg/dL 0.2-1.2 (BEAKER) (test code = 377) SODIUM (BEAKER) 139 meq/L 136-145 (test code = 381) POTASSIUM (BEAKER) 4.0 meq/L 3.5-5.1 (test code = 379) CHLORIDE (BEAKER) 108 meq/L 98-107 H (test code = 382) CO2 (BEAKER) (test 24 meq/L 22-29 code = 355) BLOOD UREA 15 mg/dL 7-21 NITROGEN (BEAKER) (test code = 354) CREATININE 0.84 mg/dL 0.57-1.25 (BEAKER) (test code = 358) GLUCOSE RANDOM 205 mg/dL 70-105 H (BEAKER) (test code = 652) CALCIUM (BEAKER) 8.4 mg/dL 8.4-10.2 (test code = 697) AST (SGOT) 32 U/L 5-34 (BEAKER) (test code = 353) ALT (SGPT) 56 U/L 6-55 H (BEAKER) (test code = 347) EGFR (BEAKER) 98 Interpretatio n of eGFR (test code = 1092) mL/min/1.[address] age Description sq m Result G1 Shahnaz l or [...] not appl icable for dialysis patien ts Software Quality Tester ID - [id number] 10:31:28 Test Item Value Reference Range Interpretation Comments MAGNESIUM (BEAKER) (test code = 1.7 mg/dL 1.6-2.6 627) Software Quality Tester ID - edCBC W/PLT COUNT & AUTO [id number] 10:20:02 Test Item Value Reference Range Interpretation Comments WHITE BLOOD CELL COUNT (BEAKER) 7.6 K/ L 3.5-10.5 (test code = 775) RED BLOOD CELL COUNT (BEAKER) 5.04 M/ L 4.63-6.08 (test code = 761) HEMOGLOBIN (BEAKER) (test code = 10.2 GM/DL 13.7-17.5 L 410) HEMATOCRIT (BEAKER) (test code = 36.0 % 40.1-51.0 L 411) MEAN CORPUSCULAR VOLUME (BEAKER) 71 fL 79-92 L (test code = 753) MEAN CORPUSCULAR HEMOGLOBIN 20.2 pg 25.7-32.2 L (BEAKER) (test code = 751) MEAN CORPUSCULAR HEMOGLOBIN CONC 28.3 GM/DL 32.3-36.5 L (BEAKER) (test code = 752) RED CELL DISTRIBUTION WIDTH 17.8 % 11.6-14.4 H (BEAKER) (test code = 412) PLATELET COUNT (BEAKER) (test 184 K/CU MM 150-450 code = 756) MEAN PLATELET VOLUME (BEAKER) 10.3 fL 9.4-12.4 (test code = 754) NUCLEATED RED BLOOD CELLS 0 /100 WBC 0-0 (BEAKER) (test code = 413) NEUTROPHILS RELATIVE PERCENT 72 % (BEAKER) (test code = 429) LYMPHOCYTES RELATIVE PERCENT 17 % (BEAKER) (test code = 430) MONOCYTES RELATIVE PERCENT 7 % (BEAKER) (test code = 431) EOSINOPHILS RELATIVE PERCENT 3 % (BEAKER) (test code = 432) BASOPHILS RELATIVE PERCENT 1 % (BEAKER) (test code = 437) NEUTROPHILS ABSOLUTE COUNT 5.45 K/ L 1.78-5.38 H (BEAKER) (test code = 670) LYMPHOCYTES ABSOLUTE COUNT 1.31 K/ L 1.32-3.57 L (BEAKER) (test code = 414) MONOCYTES ABSOLUTE COUNT (BEAKER) 0.49 K/ L 0.30-0.82 (test code = 415) EOSINOPHILS ABSOLUTE COUNT 0.21 K/ L 0.04-0.54 (BEAKER) (test code = 416) BASOPHILS ABSOLUTE COUNT (BEAKER) 0.05 K/ L 0.01-0.08 (test code = 417) IMMATURE GRANULOCYTES-RELATIVE 0.80 % 0.00-1.00 PERCENT (BEAKER) (test code = 2801) TACROLIMUS [id number] 11:47:55 Test Item Value Reference Range Interpretation Comments TACROLIMUS BLOOD 6.3 ng/mL 10.0-20.0 L Test perfor med on Calhoun (BEAKER) (test code Architec t Immunoassay = 657) system with Chemiluminescen t Microparticle I mmunoassay (CMIA) technolo gy. Software Quality Tester ID - ADMINCOMPREHENSIVE METABOLIC [id number] 10:46:25 Test Item Value Reference Range Interpretation Comments TOTAL PROTEIN 6.0 gm/dL 6.0-8.3 (BEAKER) (test code = 770) ALBUMIN (BEAKER) 3.3 g/dL 3.5-5.0 L (test code = 1145) ALKALINE 435 U/L 40-150 H PHOSPHATASE (BEAKER) (test code = 346) BILIRUBIN TOTAL 0.8 mg/dL 0.2-1.2 (BEAKER) (test code = 377) SODIUM (BEAKER) 137 meq/L 136-145 (test code = 381) POTASSIUM (BEAKER) 4.4 meq/L 3.5-5.1 (test code = 379) CHLORIDE (BEAKER) 106 meq/L 98-107 (test code = 382) CO2 (BEAKER) (test 24 meq/L 22-29 code = 355) BLOOD UREA 13 mg/dL 7-21 NITROGEN (BEAKER) (test code = 354) CREATININE 0.74 mg/dL 0.57-1.25 (BEAKER) (test code = 358) GLUCOSE RANDOM 199 mg/dL 70-105 H (BEAKER) (test code = 652) CALCIUM (BEAKER) 8.5 mg/dL 8.4-10.2 (test code = 697) AST (SGOT) 30 U/L 5-34 (BEAKER) (test code = 353) ALT (SGPT) 52 U/L 6-55 (BEAKER) (test code = 347) EGFR (BEAKER) 101 Interpretatio n of eGFR (test code = 1092) mL/min/1.[address] age Description sq m Result G1 Shahnaz l or [...] not appl icable for dialysis patien ts Software Quality Tester ID - [id number] 10:46:25 Test Item Value Reference Range Interpretation Comments MAGNESIUM (BEAKER) (test code = 1.5 mg/dL 1.6-2.6 L 627) Software Quality Tester ID - [id number] 10:46:25 Test Item Value Reference Range Interpretation Comments PHOSPHORUS (BEAKER) (test code = 3.8 mg/dL 2.3-4.7 604) Software Quality Tester ID - MARCOBILIRUBIN, [id number] 10:46:25 Test Item Value Reference Range Interpretation Comments BILIRUBIN DIRECT (BEAKER) (test 0.5 mg/dL 0.1-0.5 code = 706) Software Quality Tester ID - MARCOCBC W/PLT COUNT & AUTO [id number] 10:36:44 Test Item Value Reference Range Interpretation Comments WHITE BLOOD CELL COUNT (BEAKER) 6.0 K/ L 3.5-10.5 (test code = 775) RED BLOOD CELL COUNT (BEAKER) 4.71 M/ L 4.63-6.08 (test code = 761) HEMOGLOBIN (BEAKER) (test code = 9.9 GM/DL 13.7-17.5 L 410) HEMATOCRIT (BEAKER) (test code = 34.3 % 40.1-51.0 L 411) MEAN CORPUSCULAR VOLUME (BEAKER) 73 fL 79-92 L (test code = 753) MEAN CORPUSCULAR HEMOGLOBIN 21.0 pg 25.7-32.2 L (BEAKER) (test code = 751) MEAN CORPUSCULAR HEMOGLOBIN CONC 28.9 GM/DL 32.3-36.5 L (BEAKER) (test code = 752) RED CELL DISTRIBUTION WIDTH 17.5 % 11.6-14.4 H (BEAKER) (test code = 412) PLATELET COUNT (BEAKER) (test 160 K/CU MM 150-450 code = 756) MEAN PLATELET VOLUME (BEAKER) 10.1 fL 9.4-12.4 (test code = 754) NUCLEATED RED BLOOD CELLS 0 /100 WBC 0-0 (BEAKER) (test code = 413) NEUTROPHILS RELATIVE PERCENT 70 % (BEAKER) (test code = 429) LYMPHOCYTES RELATIVE PERCENT 20 % (BEAKER) (test code = 430) MONOCYTES RELATIVE PERCENT 6 % (BEAKER) (test code = 431) EOSINOPHILS RELATIVE PERCENT 3 % (BEAKER) (test code = 432) BASOPHILS RELATIVE PERCENT 1 % (BEAKER) (test code = 437) NEUTROPHILS ABSOLUTE COUNT 4.18 K/ L 1.78-5.38 (BEAKER) (test code = 670) LYMPHOCYTES ABSOLUTE COUNT 1.19 K/ L 1.32-3.57 L (BEAKER) (test code = 414) MONOCYTES ABSOLUTE COUNT (BEAKER) 0.35 K/ L 0.30-0.82 (test code = 415) EOSINOPHILS ABSOLUTE COUNT 0.16 K/ L 0.04-0.54 (BEAKER) (test code = 416) BASOPHILS ABSOLUTE COUNT (BEAKER) 0.08 K/ L 0.01-0.08 (test code = 417) IMMATURE GRANULOCYTES-RELATIVE 0.70 % 0.00-1.00 PERCENT (BEAKER) (test code = 2801) TACROLIMUS [id number] 15:02:30 Test Item Value Reference Range Interpretation Comments TACROLIMUS BLOOD 10.0 ng/mL 10.0-20.0 Test perfor med on Calhoun (BEAKER) (test code Architec t Immunoassay = 657) system with Chemiluminescen t Microparticle Immunoassay (CM IA) technology. Software Quality Tester ID - ADMINCOMPREHENSIVE METABOLIC [id number] 11:24:24 Test Item Value Reference Range Interpretation Comments TOTAL PROTEIN 5.9 gm/dL 6.0-8.3 L (BEAKER) (test code = 770) ALBUMIN (BEAKER) 3.1 g/dL 3.5-5.0 L (test code = 1145) ALKALINE 456 U/L 40-150 H PHOSPHATASE (BEAKER) (test code = 346) BILIRUBIN TOTAL 0.9 mg/dL 0.2-1.2 (BEAKER) (test code = 377) SODIUM (BEAKER) 139 meq/L 136-145 (test code = 381) POTASSIUM (BEAKER) 3.9 meq/L 3.5-5.1 (test code = 379) CHLORIDE (BEAKER) 108 meq/L 98-107 H (test code = 382) CO2 (BEAKER) (test 24 meq/L 22-29 code = 355) BLOOD UREA 13 mg/dL 7-21 NITROGEN (BEAKER) (test code = 354) CREATININE 0.69 mg/dL 0.57-1.25 (BEAKER) (test code = 358) GLUCOSE RANDOM 126 mg/dL 70-105 H (BEAKER) (test code = 652) CALCIUM (BEAKER) 8.2 mg/dL 8.4-10.2 L (test code = 697) AST (SGOT) 36 U/L 5-34 H (BEAKER) (test code = 353) ALT (SGPT) 49 U/L 6-55 (BEAKER) (test code = 347) EGFR (BEAKER) 102 Interpretatio n of eGFR (test code = 1092) mL/min/1.[address] age Description sq m Result G1 Shahnaz l or [...] not appl icable for dialysis patien ts Software Quality Tester ID - [id number] 11:24:24 Test Item Value Reference Range Interpretation Comments MAGNESIUM (BEAKER) (test code = 1.5 mg/dL 1.6-2.6 L 627) Software Quality Tester ID - [id number] 11:24:24 Test Item Value Reference Range Interpretation Comments PHOSPHORUS (BEAKER) (test code = 3.4 mg/dL 2.3-4.7 604) Software Quality Tester ID - MMBILIRUBIN, [id number] 11:24:24 Test Item Value Reference Range Interpretation Comments BILIRUBIN DIRECT (BEAKER) (test 0.5 mg/dL 0.1-0.5 code = 706) Software Quality Tester ID - MMCBC W/PLT COUNT & AUTO [id number] 11:06:39 Test Item Value Reference Range Interpretation Comments WHITE BLOOD CELL COUNT (BEAKER) 6.5 K/ L 3.5-10.5 (test code = 775) RED BLOOD CELL COUNT (BEAKER) 4.29 M/ L 4.63-6.08 L (test code = 761) HEMOGLOBIN (BEAKER) (test code = 9.2 GM/DL 13.7-17.5 L 410) HEMATOCRIT (BEAKER) (test code = 32.2 % 40.1-51.0 L 411) MEAN CORPUSCULAR VOLUME (BEAKER) 75 fL 79-92 L (test code = 753) MEAN CORPUSCULAR HEMOGLOBIN 21.4 pg 25.7-32.2 L (BEAKER) (test code = 751) MEAN CORPUSCULAR HEMOGLOBIN CONC 28.6 GM/DL 32.3-36.5 L (BEAKER) (test code = 752) RED CELL DISTRIBUTION WIDTH 17.6 % 11.6-14.4 H (BEAKER) (test code = 412) PLATELET COUNT (BEAKER) (test 162 K/CU MM 150-450 code = 756) MEAN PLATELET VOLUME (BEAKER) 10.1 [...] (test code = 437) NEUTROPHILS ABSOLUTE COUNT 3.56 K/ L 1.78-5.38 (BEAKER) (test code = 670) LYMPHOCYTES ABSOLUTE COUNT 1.76 K/ L 1.32-3.57 (BEAKER) (test code = 414) MONOCYTES ABSOLUTE COUNT (BEAKER) 0.71 K/ L 0.30-0.82 (test code = 415) EOSINOPHILS ABSOLUTE COUNT 0.35 K/ L 0.04-0.54 (BEAKER) (test code = 416) BASOPHILS ABSOLUTE COUNT (BEAKER) 0.06 K/ L 0.01-0.08 (test code = 417) IMMATURE GRANULOCYTES-RELATIVE 0.80 % 0.00-1.00 PERCENT (BEAKER) (test code = 2801) TACROLIMUS [id number] 14:21:22 Test Item Value Reference Range Interpretation Comments TACROLIMUS BLOOD 9.2 ng/mL 10.0-20.0 L Test perfor med on [place] (BEAKER) (test code Architec t Immunoassay = 657) system with Chemiluminescen t Microparticle I mmunoassay (CMIA) technolo gy. Software Quality Tester ID - ADMINBILIRUBIN, [id number] 11:52:50 Test Item Value Reference Range Interpretation Comments BILIRUBIN DIRECT (BEAKER) (test 0.6 mg/dL 0.1-0.5 H code = 706) Software Quality Tester ID - ADMINCOMPREHENSIVE METABOLIC [id number] 11:52:49 Test Item Value Reference Range Interpretation Comments TOTAL PROTEIN 5.8 gm/dL 6.0-8.3 L (BEAKER) (test code = 770) ALBUMIN (BEAKER) 2.9 g/dL 3.5-5.0 L (test code = 1145) ALKALINE 380 U/L 40-150 H PHOSPHATASE (BEAKER) (test code = 346) BILIRUBIN TOTAL 1.0 mg/dL 0.2-1.2 (BEAKER) (test code = 377) SODIUM (BEAKER) 137 meq/L 136-145 (test code = 381) POTASSIUM (BEAKER) 4.4 meq/L 3.5-5.1 (test code = 379) CHLORIDE (BEAKER) 104 meq/L 98-107 (test code = 382) CO2 (BEAKER) (test 25 meq/L 22-29 code = 355) BLOOD UREA 19 mg/dL 7-21 NITROGEN (BEAKER) (test code = 354) CREATININE 0.91 mg/dL 0.57-1.25 (BEAKER) (test code = 358) GLUCOSE RANDOM 167 mg/dL 70-105 H (BEAKER) (test code = 652) CALCIUM (BEAKER) 8.0 mg/dL 8.4-10.2 L (test code = 697) AST (SGOT) 19 U/L 5-34 (BEAKER) (test code = 353) ALT (SGPT) 28 U/L 6-55 (BEAKER) (test code = 347) EGFR (BEAKER) 95 Interpretatio n of eGFR (test code = 1092) mL/min/1.[address] age Description sq m Result G1 Shahnaz l or [...] not appl icable for dialysis patien ts Software Quality Tester ID - [id number] 11:52:49 Test Item Value Reference Range Interpretation Comments MAGNESIUM (BEAKER) (test code = 1.4 mg/dL 1.6-2.6 L 627) Software Quality Tester ID - [id number] 11:52:49 Test Item Value Reference Range Interpretation Comments PHOSPHORUS (BEAKER) (test code = 3.8 mg/dL 2.3-4.7 604) Software Quality Tester ID - ADMINCBC W/PLT COUNT & AUTO [id number] 11:47:34 Test Item Value Reference Range Interpretation Comments WHITE BLOOD CELL COUNT (BEAKER) 8.4 K/ L 3.5-10.5 (test code = 775) RED BLOOD CELL COUNT (BEAKER) 4.20 M/ L 4.63-6.08 L (test code = 761) HEMOGLOBIN (BEAKER) (test code = 9.3 GM/DL 13.7-17.5 L 410) HEMATOCRIT (BEAKER) (test code = 32.5 % 40.1-51.0 L 411) MEAN CORPUSCULAR VOLUME (BEAKER) 77 fL 79-92 L (test code = 753) MEAN CORPUSCULAR HEMOGLOBIN 22.1 pg 25.7-32.2 L (BEAKER) (test code = 751) MEAN CORPUSCULAR HEMOGLOBIN CONC 28.6 GM/DL 32.3-36.5 L (BEAKER) (test code = 752) RED CELL DISTRIBUTION WIDTH 18.7 % 11.6-14.4 H (BEAKER) (test code = 412) PLATELET COUNT (BEAKER) (test 165 K/CU MM 150-450 code = 756) MEAN PLATELET VOLUME (BEAKER) 10.4 fL 9.4-12.4 (test code = 754) NUCLEATED RED BLOOD CELLS 0 /100 WBC 0-0 (BEAKER) (test code = 413) NEUTROPHILS RELATIVE PERCENT 65 % (BEAKER) (test code = 429) LYMPHOCYTES RELATIVE PERCENT 21 % (BEAKER) (test code = 430) MONOCYTES RELATIVE PERCENT 9 % (BEAKER) (test code = 431) EOSINOPHILS RELATIVE PERCENT 3 % (BEAKER) (test code = 432) BASOPHILS RELATIVE PERCENT 1 % (BEAKER) (test code = 437) NEUTROPHILS ABSOLUTE COUNT 5.46 K/ L 1.78-5.38 H (BEAKER) (test code = 670) LYMPHOCYTES ABSOLUTE COUNT 1.75 K/ L 1.32-3.57 (BEAKER) (test code = 414) MONOCYTES ABSOLUTE COUNT (BEAKER) 0.76 K/ L 0.30-0.82 (test code = 415) EOSINOPHILS ABSOLUTE COUNT 0.29 K/ L 0.04-0.54 (BEAKER) (test code = 416) BASOPHILS ABSOLUTE COUNT (BEAKER) 0.08 K/ L 0.01-0.08 (test code = 417) IMMATURE GRANULOCYTES-RELATIVE 1.10 % 0.00-1.00 H PERCENT (BEAKER) (test code = 2801) AFB CULTURE + SMEAR (NON-SPUTUM)2022-10-05 09:07:02 Test Item Value Reference Range Interpretation Comments CULTURE (BEAKER) (test No acid-fast bacilli code = 1095) isolated in 42 days AFB SMEAR (BEAKER) No acid fast bacilli (test code = 994) seen TACROLIMUS [id number] 13:12:46 Test Item Value Reference Range Interpretation Comments TACROLIMUS BLOOD 15.9 ng/mL 10.0-20.0 Test perfor med on [place] (BEAKER) (test code Architec t Immunoassay = 657) system with Chemiluminescen t Microparticle Immunoassay (CM IA) technology. Software Quality Tester ID - ADMINBILIRUBIN, [id number] 12:42:39 Test Item Value Reference Range Interpretation Comments BILIRUBIN DIRECT (BEAKER) (test 0.7 mg/dL 0.1-0.5 H code = 706) Software Quality Tester ID - MMCOMPREHENSIVE METABOLIC [id number] 12:42:38 Test Item Value Reference Range Interpretation Comments TOTAL PROTEIN 6.1 gm/dL 6.0-8.3 (BEAKER) (test code = 770) ALBUMIN (BEAKER) 2.9 g/dL 3.5-5.0 L (test code = 1145) ALKALINE 492 U/L 40-150 H PHOSPHATASE (BEAKER) (test code = 346) BILIRUBIN TOTAL 1.5 mg/dL 0.2-1.2 H (BEAKER) (test code = 377) SODIUM (BEAKER) 136 meq/L 136-145 (test code = 381) POTASSIUM (BEAKER) 4.6 meq/L 3.5-5.1 (test code = 379) CHLORIDE (BEAKER) 104 meq/L 98-107 (test code = 382) CO2 (BEAKER) (test 24 meq/L 22-29 code = 355) BLOOD UREA 14 mg/dL 7-21 NITROGEN (BEAKER) (test code = 354) CREATININE 0.87 mg/dL 0.57-1.25 (BEAKER) (test code = 358) GLUCOSE RANDOM 180 mg/dL 70-105 H (BEAKER) (test code = 652) CALCIUM (BEAKER) 8.5 mg/dL 8.4-10.2 (test code = 697) AST (SGOT) 31 U/L 5-34 (BEAKER) (test code = 353) ALT (SGPT) 48 U/L 6-55 (BEAKER) (test code = 347) EGFR (BEAKER) 97 Interpretatio n of eGFR (test code = 1092) mL/min/1.[address] age Description sq m Result G1 Shahnaz l or [...] not appl icable for dialysis patien ts Software Quality Tester ID - [id number] 12:42:38 Test Item Value Reference Range Interpretation Comments MAGNESIUM (BEAKER) (test code = 1.3 mg/dL 1.6-2.6 L 627) Software Quality Tester ID - [id number] 12:42:38 Test Item Value Reference Range Interpretation Comments PHOSPHORUS (BEAKER) (test code = 3.5 mg/dL 2.3-4.7 604) Software Quality Tester ID - MMCBC W/PLT COUNT & AUTO [id number] 12:24:01 Test Item Value Reference Range Interpretation Comments WHITE BLOOD CELL COUNT (BEAKER) 7.7 K/ L 3.5-10.5 (test code = 775) RED BLOOD CELL COUNT (BEAKER) 4.29 M/ L 4.63-6.08 L (test code = 761) HEMOGLOBIN (BEAKER) (test code = 9.7 GM/DL 13.7-17.5 L 410) HEMATOCRIT (BEAKER) (test code = 33.3 % 40.1-51.0 L 411) MEAN CORPUSCULAR VOLUME (BEAKER) 78 fL 79-92 L (test code = 753) MEAN CORPUSCULAR HEMOGLOBIN 22.6 pg 25.7-32.2 L (BEAKER) (test code = 751) MEAN CORPUSCULAR HEMOGLOBIN CONC 29.1 GM/DL 32.3-36.5 L (BEAKER) (test code = 752) RED CELL DISTRIBUTION WIDTH 19.7 % 11.6-14.4 H (BEAKER) (test code = 412) PLATELET COUNT (BEAKER) (test 188 K/CU MM 150-450 code = 756) MEAN PLATELET VOLUME (BEAKER) 10.4 fL 9.4-12.4 (test code = 754) NUCLEATED RED BLOOD CELLS 0 /100 WBC 0-0 (BEAKER) (test code = 413) NEUTROPHILS RELATIVE PERCENT 68 % (BEAKER) (test code = 429) LYMPHOCYTES RELATIVE PERCENT 16 % (BEAKER) (test code = 430) MONOCYTES RELATIVE PERCENT 11 % (BEAKER) (test code = 431) EOSINOPHILS RELATIVE PERCENT 4 % (BEAKER) (test code = 432) BASOPHILS RELATIVE PERCENT 1 % (BEAKER) (test code = 437) NEUTROPHILS ABSOLUTE COUNT 5.18 K/ L 1.78-5.38 (BEAKER) (test code = 670) LYMPHOCYTES ABSOLUTE COUNT 1.19 K/ L 1.32-3.57 L (BEAKER) (test code = 414) MONOCYTES ABSOLUTE COUNT (BEAKER) 0.83 K/ L 0.30-0.82 H (test code = 415) EOSINOPHILS ABSOLUTE COUNT 0.29 K/ L 0.04-0.54 (BEAKER) (test code = 416) BASOPHILS ABSOLUTE COUNT (BEAKER) 0.07 K/ L 0.01-0.08 (test code = 417) IMMATURE GRANULOCYTES-RELATIVE 1.40 % 0.00-1.00 H PERCENT (BEAKER) (test code = 2801) BLOOD [id number] 00:01:56 Test Item Value Reference Range Interpretation Comments CULTURE (BEAKER) (test No growth in 5 days code = 1095) The specimen volume collected for this blood culture was below the optimum (10 mL per bottle or 20 mL total). Use of lower volumes may adversely affect recovery and/or detection times of some organisms.BLOOD [id number] 00:01:56 Test Item Value Reference Range Interpretation Comments CULTURE (BEAKER) (test No growth in 5 days code = 1095) POCT-GLUCOSE [id number] 22:30:35 Test Item Value Reference Range Interpretation Comments POC-GLUCOSE METER 287 mg/dL 70-110 H : [facility] (BEAKER) (test code = [place], 1538) [address]: Software Quality Tester/Techni zaire ID = [id number] for Lili Eaton TISSUE [id number] 13:48:07Surgical Pathology Report Case: [id number] Authorizing Provider: Shamar Michaels Jr., MD Collected: 09/23/2022 03:19 PM Ordering Location: [address] Received: 09/23/2022 04:21 PM Cardiovascular Pathologist: Denise Martin MD Specimen: Liver, transplanted CMV immunohistochemical stain for is negativeAddendum electronically signed by Denise Martin MD on 09/27/2022 at 1:48 PMLIVER, ALLOGRAFT, OLT JULY2022, RANDOM NEEDLE CORE BIOPSY- Features suggestive of bile duct injury consistent with acute cholangitis/pericholangitis- Central venular injury with sinusoidal congestion and hepatocyte dropout suggestive of ischemia -Rare neutrophilic micro abscess noted, CMV immunohistochemical stain pending- Acute cellular rejection cannot be totally excluded in this patient with the fluctuating tacrolimus levels. 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 Presented with elevated LFT of AST 24, ALT 28, alkaline phosphatase 411, total bilirubin 1.1, direct bilirubin 0.7, GGT 210, NILS positive with a titer of 1 :160, AMA and ASMA negative. The patient also had s/p ERCP with CBD stent placement and clinically having ascending cholangitis. The findings are suggestive of bile duct obstruction with cholangitis/pericholangitis. There is also central venular injury noted which is suggestive of ischemia. Acute cellular rejection cannot be totally excluded in this patient with the fluctuating tacrolimus levels. Clinical correlation recommendedNo definitive features of chronic cellular rejection noted.Clinician notified Ten Aguilar was notified by [employer] message on 09/24/2022 at 1:04 [id number] liver on . LiverReceived in formalin labeled with the patient's name, medical record number and "liver" are 2 scanlon, threadlike soft tissue cores measuring up to 1.3 cm in greatest length, which are submitted in toto in A1.DARYL Fragoso, HT (ASCP)2 liver cores with adequate number of portal triads approximately 15 with lobular and portal injury. The portal triads are expanded by mixed inflammation comprised of neutrophils, lymphocytes, plasma cells and eosinophils with some portal tracts showing portal edema. The bile ducts at the portal triads are destructed by neutrophils as well asshowing cytoplasmic vacuolization and nuclear disarray and eosinophilia. The portal triad shows mildto moderate bile ductular reaction. There are rare bile duct associated poorly formed histiocytic collection noted. No central venular and portal vein endotheliitis noted. The lobules show significant lobular injury in the central venular area identified by sinusoidal dilatation and congestion with hepatocyte dropout. There is increased intrahepatic cholestasis noted. There is no significant steatosis noted. There are focal areas of neutrophilic abscess noted in the periportal zone. Trichrome stain shows mild expansion of portal and periportal areas suggestive of early fibrosis, which may resolve with timeReticulin stain shows preserved hepatic parenchyma with focal hepatocyte atrophy in the central venular zone PASD stain is negative for alpha-1 antitrypsin globules. Iron stain is negative for in creased iron.CMV immunohistochemical stain pendingThe interpretation of this case included the use of immunohistochemistry or special stains.Control Slides Examined: In-house known positive controls were evaluated along with the test tissue. These control slides run alongside of the patients sample show appropriate staining. Internal positive and negative controls when available are evaluated Immunohistochemistry technical testing was performed at [facility], Pathology Laboratory where it was developed and its performance characteristics were determined. It has not been cleared or approved by the U.S. Food and Drug Administration. The FDA has determined that such clearance orapproval is not necessary. The test is used for clinical purposes. It should not be regarded as investigational or for research. This laboratory is certified under the Clinical Laboratory Improvement Amendments of 1988 (CLIA- 88) as qualified to perform high complexity clinical laboratory testing.[facility], Department of Pathology, [address] [place] [id number], [facility], [address] [place] [address], [facility], [address] [place] [address], [place] [address], LBDI-GLUCOSE [id number] 11:29:05 Test Item Value Reference Range Interpretation Comments POC-GLUCOSE METER 219 mg/dL 70-110 H : TESTED A T [facility] 6720 (BEAKER) (test code = [place], 1538) [address]: Software Quality Tester/Techni zaire ID = [id number] for Lili Eaton TACROLIMUS [id number] 08:50:47 Test Item Value Reference Range Interpretation Comments TACROLIMUS BLOOD 11.3 ng/mL 10.0-20.0 Test perfor med on [place] (BEAKER) (test code Architec t Immunoassay = 657) system with Chemiluminescen t Microparticle Immunoassay (CM IA) technology. Software Quality Tester ID - ADMINPOCT-GLUCOSE [id number] 07:52:34 Test Item Value Reference Range Interpretation Comments POC-GLUCOSE METER 114 mg/dL 70-110 H : TESTED A T [facility] 6720 (BEAKER) (test code = [place], 1538) [address]: Software Quality Tester/Techni zaire ID = [id number] for Lili Eaton GAMMA GLUTAMYL TRANSFERASE (GGT)2022-09-27 06:33:32 Test Item Value Reference Range Interpretation Comments GAMMA GLUTAMYL TRANSFERASE (BEAKER) 205 U/L 9-64 H (test code = 364) Software Quality Tester ID - LIZ WHEPATIC FUNCTION [id number] 06:33:31 Test Item Value Reference Range Interpretation Comments TOTAL PROTEIN (BEAKER) (test code = 5.3 gm/dL 6.0-8.3 L 770) ALBUMIN (BEAKER) (test code = 1145) 2.4 g/dL 3.5-5.0 L BILIRUBIN TOTAL (BEAKER) (test code 1.1 mg/dL 0.2-1.2 = 377) BILIRUBIN DIRECT (BEAKER) (test 0.7 mg/dL 0.1-0.5 H code = 706) ALKALINE PHOSPHATASE (BEAKER) (test 438 U/L 40-150 H code = 346) AST (SGOT) (BEAKER) (test code = 26 U/L 5-34 353) ALT (SGPT) (BEAKER) (test code = 34 U/L 6-55 347) Software Quality Tester ID - LIZ [id number] 06:33:30 Test Item Value Reference Range Interpretation Comments MAGNESIUM (BEAKER) (test code = 1.3 mg/dL 1.6-2.6 L 627) Software Quality Tester ID Andrea HILL [id number] 06:33:30 Test Item Value Reference Range Interpretation Comments PHOSPHORUS (BEAKER) (test code = 4.0 mg/dL 2.3-4.7 604) Software Quality Tester ID - LIZ WBASIC METABOLIC [id number] 06:33:29 Test Item Value Reference Range Interpretation Comments SODIUM (BEAKER) 138 meq/L 136-145 (test code = 381) POTASSIUM 4.0 meq/L 3.5-5.1 (BEAKER) (test code = 379) CHLORIDE (BEAKER) 109 meq/L 98-107 H (test code = 382) CO2 (BEAKER) 21 meq/L 22-29 L (test code = 355) BLOOD UREA 10 mg/dL 7-21 NITROGEN (BEAKER) (test code = 354) CREATININE 0.63 mg/dL 0.57-1.25 (BEAKER) (test code = 358) GLUCOSE RANDOM 80 mg/dL 70-105 (BEAKER) (test code = 652) CALCIUM (BEAKER) 8.3 mg/dL 8.4-10.2 L (test code = 697) EGFR (BEAKER) 105 Interpretatio n of eGFR (test code = [...] not appl icable for dialysis patien ts Software Quality Tester ID Andrea HILL WPROTHROMBIN [id number] 05:32:11 Test Item Value Reference Range Interpretation Comments PROTIME (BEAKER) (test code = 14.2 seconds 11.9-14.2 759) INR (BEAKER) (test code = 370) 1.17 <=5.90 RECOMMENDED COUMADIN/WARFARIN INR THERAPY RANGESSTANDARD DOSE: 2.0 - 3.0 Includes: PROPHYLAXIS for venous thrombosis, systemic embolization; TREATMENT for venous thrombosis and/or pulmonary embolus.HIGH RISK: Target INR is 2.5-3.5 for patients with mechanical heart valves.CBC W/PLT COUNT & AUTO [id number] 05:20:20 Test Item Value Reference Range Interpretation Comments WHITE BLOOD CELL COUNT (BEAKER) 7.0 K/ L 3.5-10.5 (test code = 775) RED BLOOD CELL COUNT (BEAKER) 3.78 M/ L 4.63-6.08 L (test code = 761) HEMOGLOBIN (BEAKER) (test code = 8.8 GM/DL 13.7-17.5 L 410) HEMATOCRIT (BEAKER) (test code = 30.2 % 40.1-51.0 L 411) MEAN CORPUSCULAR VOLUME (BEAKER) 80 fL 79-92 (test code = 753) MEAN CORPUSCULAR HEMOGLOBIN 23.3 pg 25.7-32.2 L (BEAKER) (test code = 751) MEAN CORPUSCULAR HEMOGLOBIN CONC 29.1 GM/DL 32.3-36.5 L (BEAKER) (test code = 752) RED CELL DISTRIBUTION WIDTH 20.2 % 11.6-14.4 H (BEAKER) (test code = 412) PLATELET COUNT (BEAKER) (test 133 K/CU MM 150-450 L code = 756) MEAN PLATELET VOLUME (BEAKER) 10.1 fL 9.4-12.4 (test code = 754) NUCLEATED RED BLOOD CELLS 0 /100 WBC 0-0 (BEAKER) (test code = 413) NEUTROPHILS RELATIVE PERCENT 55 % (BEAKER) (test code = 429) LYMPHOCYTES RELATIVE PERCENT 28 % (BEAKER) (test code = 430) MONOCYTES RELATIVE PERCENT 10 % (BEAKER) (test code = 431) EOSINOPHILS RELATIVE PERCENT 5 % (BEAKER) (test code = 432) BASOPHILS RELATIVE PERCENT 1 % (BEAKER) (test code = 437) NEUTROPHILS ABSOLUTE COUNT 3.87 K/ L 1.78-5.38 (BEAKER) (test code = 670) LYMPHOCYTES ABSOLUTE COUNT 1.95 K/ L 1.32-3.57 (BEAKER) (test code = 414) MONOCYTES ABSOLUTE COUNT (BEAKER) 0.68 K/ L 0.30-0.82 (test code = 415) EOSINOPHILS ABSOLUTE COUNT 0.34 K/ L 0.04-0.54 (BEAKER) (test code = 416) BASOPHILS ABSOLUTE COUNT (AKER) 0.06 K/ L 0.01-0.08 (test code = 417) IMMATURE GRANULOCYTES-RELATIVE 1.30 % 0.00-1.00 H PERCENT (AKER) (test code = 2801) POCT-GLUCOSE [id number] 21:17:51 Test Item Value Reference Range Interpretation Comments POC-GLUCOSE METER 149 mg/dL 70-110 H : TESTED A T [facility] 67[address] ([facility]) (test code = [place], 1538) [address]: Software Quality Tester/Techni zaire ID = [id number] for MARGOT SHIPLEY POCT-GLUCOSE [id number] 16:16:07 Test Item Value Reference Range Interpretation Comments POC-GLUCOSE METER 238 mg/dL 70-110 H : TESTED A T [facility] 67[address] ([facility]) (test code = [place], 1538) [address]: Software Quality Tester/Techni zaire ID = [id number] for Susanna Eatonerie POCT-GLUCOSE [id number] 11:48:36 Test Item Value Reference Range Interpretation Comments POC-GLUCOSE METER 135 mg/dL 70-110 H : TESTED A T [facility] 67[address] ([facility]) (test code = [place], 1538) [address]: Software Quality Tester/Techni zaire ID = [id number] for Christi moncada, Lili TACROLIMUS [id number] 10:29:25 Test Item Value Reference Range Interpretation Comments TACROLIMUS BLOOD 15.4 ng/mL 10.0-20.0 Test perfor med on Calhoun ([facility]) (test code Architec t Immunoassay = 657) system with Chemiluminescen t Microparticle Immunoassay (CM IA) technology. Software Quality Tester ID - ADMINU/S, BIOPSY, [id number] 09:27:00REFERRING : CHERELLE SALVADOR Reason for exam:->liver biopsy - reason: concern for liver transplant rejectionSYED MARTIN [facility] : 1955 Sex: MFINAL REPORT Procedure: Ultrasound-Guided Core Random Hepatic Biopsy: Pre/post-procedurediagnosis: Status post transplant, concern for transplant rejection Assistant Program Director: Mauricio Cullen MD Assistants: none Sedation: Moderate sedation was administered. 25 mcg of fentanyl IV was used for moderate sedation monitored under my direction. Total intra-service time of sedation was 10 minutes. The patient's vital signs were monitored throughout the procedure and recorded in the patient's medical record by the nurse. Local Anesthesia: 8 cc 1% Xylocaine Approach: Right upper quadrant, percutaneous Specimen: Total of 2x 16 G core biopsy samples; samples were delivered to pathology in formalin so lution. Estimated blood loss: Less than 5 cc. Technique/findings: Informed written consent was obtained. Discussion of risks, benefits, and alternatives were made with the patient. The patient expressed understanding and agreed to proceed. A universal timeout was performed prior to starting the procedure. Initial ultrasound images were obtained for biopsy site selection. The right upper quadrant was prepped and draped in sterile fashion. 1% lidocaine was used for local anesthesia. Using ultrasound guidance, following acquisition of permanent images, a 16 G core biopsy needle was inserted into the right lobe under ultrasound guidance. A total of two passes were made. Post procedure sonogram revealsno hematoma. No immediate complications were noted. Impression: Successful, uncomplicated ultrasound-guided core random hepatic biopsy. Signed: Mauricio Cullen MDReport Verified Date/Time: 09/26/2022 09:27:49 POCT-GLUCOSE METER 2022-09-26 08:04:53 Test Item Value Reference Range Interpretation Comments POC-GLUCOSE METER 110 mg/dL 70-110 : TESTED Lana Davis [facility] 67[address] (BEAKER) (test code = [place], 1538) [address]: Software Quality Tester/Techni zaire ID = [id number] for Lili Eaton PROTHROMBIN [id number] 06:25:10 Test Item Value Reference Range Interpretation Comments PROTIME (BEAKER) (test code = 13.7 seconds 11.9-14.2 759) INR (BEAKER) (test code = 370) 1.07 <=5.90 RECOMMENDED COUMADIN/WARFARIN INR THERAPY RANGESSTANDARD DOSE: 2.0 - 3.0 Includes: PROPHYLAXIS for venous thrombosis, systemic embolization; TREATMENT for venous thrombosis and/or pulmonary embolus.HIGH RISK: Target INR is 2.5-3.5 for patients with mechanical heart valves.BASIC METABOLIC [id number] 06:24:51 Test Item Value Reference Range Interpretation Comments SODIUM (BEAKER) 137 meq/L 136-145 (test code = 381) POTASSIUM 3.8 meq/L 3.5-5.1 Specimen slight ly (BEAKER) (test hemolyzed code = 379) CHLORIDE (BEAKER) 109 meq/L 98-107 H (test code = 382) CO2 (BEAKER) 21 meq/L 22-29 L (test code = 355) BLOOD UREA 10 mg/dL 7-21 NITROGEN (BEAKER) (test code = 354) CREATININE 0.63 mg/dL 0.57-1.25 Specimen slight ly (BEAKER) (test hemolyzed code = 358) GLUCOSE RANDOM 118 mg/dL 70-105 H (BEAKER) (test code = 652) CALCIUM (BEAKER) 7.9 mg/dL 8.4-10.2 L (test code = 697) EGFR (BEAKER) 105 Interpretatio n of eGFR (test code = [...] not appl icable for dialysis patien ts Software Quality Tester ID - EDGAMMA GLUTAMYL TRANSFERASE (GGT)2022-09-26 06:24:34 Test Item Value Reference Range Interpretation Comments GAMMA GLUTAMYL 217 U/L 9-64 H Specimen slig htly TRANSFERASE (BEAKER) hemolyz ed (test code = 364) Software Quality Tester ID - EDHEPATIC FUNCTION [id number] 06:24:33 Test Item Value Reference Range Interpretation Comments TOTAL PROTEIN (BEAKER) 5.4 gm/dL 6.0-8.3 L Speci men slightly (test code = 770) hemolyzed ALBUMIN (BEAKER) (test 2.3 g/dL 3.5-5.0 L Speci men slightly code = 1145) hemolyzed BILIRUBIN TOTAL 1.0 mg/dL 0.2-1.2 Specimen sli ghtly (BEAKER) (test code = hemoly zed 377) BILIRUBIN DIRECT 0.6 mg/dL 0.1-0.5 H Specimen sl ightly (BEAKER) (test code = hemoly zed 706) ALKALINE PHOSPHATASE 432 U/L 40-150 H (BEAKER) (test code = 346) AST (SGOT) (BEAKER) 33 U/L 5-34 Specimen slightly (test code = 353) hemolyzed ALT (SGPT) (BEAKER) 33 U/L 6-55 Specimen slightly (test code = 347) hemolyzed Software Quality Tester ID - [id number] 06:24:32 Test Item Value Reference Range Interpretation Comments MAGNESIUM (BEAKER) 1.4 mg/dL 1.6-2.6 L Specimen slightly (test code = 627) hemolyzed Software Quality Tester ID - [id number] 06:24:32 Test Item Value Reference Range Interpretation Comments PHOSPHORUS (BEAKER) 3.0 mg/dL 2.3-4.7 Specimen slightly (test code = 604) hemolyzed Software Quality Tester ID - EDCBC W/PLT COUNT & AUTO [id number] 06:03:54 Test Item Value Reference Range Interpretation Comments WHITE BLOOD CELL COUNT (BEAKER) 8.1 K/ L 3.5-10.5 (test code = 775) RED BLOOD CELL COUNT (BEAKER) 3.94 M/ L 4.63-6.08 L (test code = 761) HEMOGLOBIN (BEAKER) (test code = 9.3 GM/DL 13.7-17.5 L 410) HEMATOCRIT (BEAKER) (test code = 31.4 % 40.1-51.0 L 411) MEAN CORPUSCULAR VOLUME (BEAKER) 80 fL 79-92 (test code = 753) MEAN CORPUSCULAR HEMOGLOBIN 23.6 pg 25.7-32.2 L (BEAKER) (test code = 751) MEAN CORPUSCULAR HEMOGLOBIN CONC 29.6 GM/DL 32.3-36.5 L (BEAKER) (test code = 752) RED CELL DISTRIBUTION WIDTH 20.1 % 11.6-14.4 H (BEAKER) (test code = 412) PLATELET COUNT (BEAKER) (test 153 K/CU MM 150-450 code = 756) MEAN PLATELET VOLUME (BEAKER) 10.1 fL 9.4-12.4 (test code = 754) NUCLEATED RED BLOOD CELLS 0 /100 WBC 0-0 (BEAKER) (test code = 413) NEUTROPHILS RELATIVE PERCENT 54 % (BEAKER) (test code = 429) LYMPHOCYTES RELATIVE PERCENT 28 % (BEAKER) (test code = 430) MONOCYTES RELATIVE PERCENT 10 % (BEAKER) (test code = 431) EOSINOPHILS RELATIVE PERCENT 5 % (BEAKER) (test code = 432) BASOPHILS RELATIVE PERCENT 1 % (BEAKER) (test code = 437) NEUTROPHILS ABSOLUTE COUNT 4.41 K/ L 1.78-5.38 (BEAKER) (test code = 670) LYMPHOCYTES ABSOLUTE COUNT 2.31 K/ L 1.32-3.57 (BEAKER) (test code = 414) MONOCYTES ABSOLUTE COUNT (BEAKER) 0.82 K/ L 0.30-0.82 (test code = 415) EOSINOPHILS ABSOLUTE COUNT 0.40 K/ L 0.04-0.54 (BEAKER) (test code = 416) BASOPHILS ABSOLUTE COUNT (BEAKER) 0.09 K/ L 0.01-0.08 H (test code = 417) IMMATURE GRANULOCYTES-RELATIVE 1.40 % 0.00-1.00 H PERCENT (BEAKER) (test code = 2801) POCT-GLUCOSE [id number] 21:25:49 Test Item Value Reference Range Interpretation Comments POC-GLUCOSE METER 103 mg/dL 70-110 : TESTED A T [facility] [address] ([facility]) (test code [facility], = 1538) [address]: Software Quality Tester/Techni zaire ID = [id number] for TIANA CHASE POCT-GLUCOSE [id number] 16:39:44 Test Item Value Reference Range Interpretation Comments POC-GLUCOSE METER 299 mg/dL 70-110 H : TESTED A T [facility] [address] ([facility]) (test code = [place], 1538) 79796: Software Quality Tester/Techni zaire ID = [id number] for PILAR [place] POCT-GLUCOSE [id number] 15:23:55 Test Item Value Reference Range Interpretation Comments POC-GLUCOSE METER 364 mg/dL 70-110 H : TESTED A T [facility] 67[address] ([facility]) (test code = [place], 153) 89535: Software Quality Tester/Techni zaire ID = [id number] for Belén Galvez GAMMA GLUTAMYL TRANSFERASE (GGT)2022-09-25 13:05:26 Test Item Value Reference Range Interpretation Comments GAMMA GLUTAMYL TRANSFERASE ([facility]) 244 U/L 9-64 H (test code = 364) Software Quality Tester ID - EDPOCT-GLUCOSE [id number] 11:53:50 Test Item Value Reference Range Interpretation Comments POC-GLUCOSE METER 227 mg/dL 70-110 H : TESTED A T [facility] ([facility]) (test code = [place], 153) [address]: Software Quality Tester/Techni zaire ID = [id number] for LAUREN NAPOLESLENE TACROLIMUS [id number] 09:18:47 Test Item Value Reference Range Interpretation Comments TACROLIMUS BLOOD 14.3 ng/mL 10.0-20.0 Test perfor med on [place] ([facility]) (test code Architec t Immunoassay = 657) system with Chemiluminescen t Microparticle Immunoassay (CM IA) technology. Software Quality Tester ID - ADMINPOCT-GLUCOSE [id number] 07:37:10 Test Item Value Reference Range Interpretation Comments POC-GLUCOSE METER 106 mg/dL 70-110 : TESTED A T [facility] [address] (BEAKER) (test code = [place], 1538) [address]: Software Quality Tester/Techni zaire ID = [id number] for CORY NAPOLES HEPATIC FUNCTION [id number] 05:13:08 Test Item Value Reference Range Interpretation Comments TOTAL PROTEIN (BEAKER) (test code = 5.3 gm/dL 6.0-8.3 L 770) ALBUMIN (BEAKER) (test code = 1145) 2.4 g/dL 3.5-5.0 L BILIRUBIN TOTAL (BEAKER) (test code 1.3 mg/dL 0.2-1.2 H = 377) BILIRUBIN DIRECT (BEAKER) (test 0.8 mg/dL 0.1-0.5 H code = 706) ALKALINE PHOSPHATASE (BEAKER) (test 447 U/L 40-150 H code = 346) AST (SGOT) (BEAKER) (test code = 28 U/L 5-34 353) ALT (SGPT) (BEAKER) (test code = 34 U/L 6-55 347) Software Quality Tester ID - [id number] 05:13:07 Test Item Value Reference Range Interpretation Comments MAGNESIUM (BEAKER) (test code = 1.2 mg/dL 1.6-2.6 L 627) Software Quality Tester ID - [id number] 05:13:07 Test Item Value Reference Range Interpretation Comments PHOSPHORUS (BEAKER) (test code = 2.8 mg/dL 2.3-4.7 604) Software Quality Tester ID - EDBASIC METABOLIC [id number] 05:13:06 Test Item Value Reference Range Interpretation Comments SODIUM (BEAKER) 135 meq/L 136-145 L (test code = 381) POTASSIUM 4.0 meq/L 3.5-5.1 (BEAKER) (test code = 379) CHLORIDE (BEAKER) 106 meq/L 98-107 (test code = 382) CO2 (BEAKER) 24 meq/L 22-29 (test code = 355) BLOOD UREA 12 mg/dL 7-21 NITROGEN (BEAKER) (test code = 354) CREATININE 0.70 mg/dL 0.57-1.25 (BEAKER) (test code = 358) GLUCOSE RANDOM 117 mg/dL 70-105 H (BEAKER) (test code = [...] not appl icable for dialysis patien ts Software Quality Tester ID - EDPROTHROMBIN [id number] 04:45:06 Test Item Value Reference Range Interpretation Comments PROTIME (BEAKER) (test code = 14.7 seconds 11.9-14.2 H 759) INR (BEAKER) (test code = 370) 1.23 <=5.90 RECOMMENDED COUMADIN/WARFARIN INR THERAPY RANGESSTANDARD DOSE: 2.0 - 3.0 Includes: PROPHYLAXIS for venous thrombosis, systemic embolization; TREATMENT for venous thrombosis and/or pulmonary embolus.HIGH RISK: Target INR is 2.5-3.5 for patients with mechanical heart valves.CBC W/PLT COUNT & AUTO [id number] 04:41:31 Test Item Value Reference Range Interpretation Comments WHITE BLOOD CELL COUNT (BEAKER) 7.1 K/ L 3.5-10.5 (test code = 775) RED BLOOD CELL COUNT (BEAKER) 3.70 M/ L 4.63-6.08 L (test code = 761) HEMOGLOBIN (BEAKER) (test code = 8.6 GM/DL 13.7-17.5 L 410) HEMATOCRIT (BEAKER) (test code = 30.0 % 40.1-51.0 L 411) MEAN CORPUSCULAR VOLUME (BEAKER) 81 fL 79-92 (test code = 753) MEAN CORPUSCULAR HEMOGLOBIN 23.2 pg 25.7-32.2 L (BEAKER) (test code = 751) MEAN CORPUSCULAR HEMOGLOBIN CONC 28.7 GM/DL 32.3-36.5 L (BEAKER) (test code = 752) RED CELL DISTRIBUTION WIDTH 20.2 % 11.6-14.4 H (BEAKER) (test code = 412) PLATELET COUNT (BEAKER) (test 145 K/CU MM 150-450 L code = 756) MEAN PLATELET VOLUME (BEAKER) 10.2 [...] (test code = 437) NEUTROPHILS ABSOLUTE COUNT 4.06 K/ L 1.78-5.38 (BEAKER) (test code = 670) LYMPHOCYTES ABSOLUTE COUNT 1.92 K/ L 1.32-3.57 (BEAKER) (test code = 414) MONOCYTES ABSOLUTE COUNT (BEAKER) 0.72 K/ L 0.30-0.82 (test code = 415) EOSINOPHILS ABSOLUTE COUNT 0.28 K/ L 0.04-0.54 (BEAKER) (test code = 416) BASOPHILS ABSOLUTE COUNT (BEAKER) 0.05 K/ L 0.01-0.08 (test code = 417) IMMATURE GRANULOCYTES-RELATIVE 1.10 % 0.00-1.00 H PERCENT (BEAKER) (test code = 2801) VANCOMYCIN LEVEL, [id number] 01:16:18 Test Item Value Reference Range Interpretation Comments VANCOMYCIN TROUGH (BEAKER) (test 17.9 ug/mL 10.0-20.0 code = 522) Software Quality Tester ID - EDPOCT-GLUCOSE [id number] 22:07:15 Test Item Value Reference Range Interpretation Comments POC-GLUCOSE METER 110 mg/dL 70-110 : TESTED A T [facility] [address] (BEAKER) (test code = [place], 1538) [address]: Software Quality Tester/Techni zaire ID = [id number] for PROSPER HARVEY POCT-GLUCOSE [id number] 19:15:48 Test Item Value Reference Range Interpretation Comments POC-GLUCOSE METER 199 mg/dL 70-110 H : TESTED A T [facility] (BEAKER) (test code = [place], 1538) [address]: Software Quality Tester/Techni zaire ID = [id number] for URBNAO FIGUEROA POCT-GLUCOSE [id number] 11:33:04 Test Item Value Reference Range Interpretation Comments POC-GLUCOSE METER 265 mg/dL 70-110 H : TESTED A T [facility] (BEAKER) (test code = [place], 1538) [address]: Software Quality Tester/Techni zaire ID = [id number] for CORY N[place]ES TACROLIMUS [id number] 09:22:57 Test Item Value Reference Range Interpretation Comments TACROLIMUS BLOOD 12.4 ng/mL 10.0-20.0 Test perfor med on [place] (BEAKER) (test code Architec t Immunoassay = 657) system with Chemiluminescen t Microparticle Immunoassay (CM IA) technology. Software Quality Tester ID - ADMINPOCT-GLUCOSE [id number] 07:30:21 Test Item Value Reference Range Interpretation Comments POC-GLUCOSE METER 110 mg/dL 70-110 : TESTED A T [facility] (BEAKER) (test code = [place], 1538) [address]: Software Quality Tester/Techni zaire ID = [id number] for OLIVACORY WORKMAN BASIC METABOLIC [id number] 05:58:20 Test Item Value Reference Range Interpretation Comments SODIUM (BEAKER) 135 meq/L 136-145 L (test code = 381) POTASSIUM 4.3 meq/L 3.5-5.1 (BEAKER) (test code = 379) CHLORIDE (BEAKER) 109 meq/L 98-107 H (test code = 382) CO2 (BEAKER) 19 meq/L 22-29 L (test code = 355) BLOOD UREA 13 mg/dL 7-21 NITROGEN (BEAKER) (test code = 354) CREATININE 0.68 mg/dL 0.57-1.25 (BEAKER) (test code = 358) GLUCOSE RANDOM 114 mg/dL 70-105 H (BEAKER) (test code = 652) CALCIUM (BEAKER) 7.8 mg/dL 8.4-10.2 L (test code = 697) EGFR (BEAKER) 103 Interpretatio n of eGFR (test code = mL/min/1.73 values Stage D escription 1092) sq m Result G1 Shahnaz l [...] not appl icable for dialysis patien ts Software Quality Tester ID - ADMINHEPATIC FUNCTION [id number] 05:57:05 Test Item Value Reference Range Interpretation Comments TOTAL PROTEIN (BEAKER) (test code = 5.4 gm/dL 6.0-8.3 L 770) ALBUMIN (BEAKER) (test code = 1145) 2.3 g/dL 3.5-5.0 L BILIRUBIN TOTAL (BEAKER) (test code 1.1 mg/dL 0.2-1.2 = 377) BILIRUBIN DIRECT (BEAKER) (test 0.7 mg/dL 0.1-0.5 H code = 706) ALKALINE PHOSPHATASE (BEAKER) (test 411 U/L 40-150 H code = 346) AST (SGOT) (BEAKER) (test code = 24 U/L 5-34 353) ALT (SGPT) (BEAKER) (test code = 28 U/L 6-55 347) Software Quality Tester ID - [id number] 05:57:04 Test Item Value Reference Range Interpretation Comments PHOSPHORUS (BEAKER) (test code = 3.0 mg/dL 2.3-4.7 604) Software Quality Tester ID - [id number] 05:57:03 Test Item Value Reference Range Interpretation Comments MAGNESIUM (BEAKER) (test code = 1.4 mg/dL 1.6-2.6 L 627) Software Quality Tester ID - ADMINPROTHROMBIN [id number] 05:31:16 Test Item Value Reference Range Interpretation Comments PROTIME (BEAKER) (test code = 13.4 seconds 11.9-14.2 759) INR (BEAKER) (test code = 370) 1.04 <=5.90 RECOMMENDED COUMADIN/WARFARIN INR THERAPY RANGESSTANDARD DOSE: 2.0 - 3.0 Includes: PROPHYLAXIS for venous thrombosis, systemic embolization; TREATMENT for venous thrombosis and/or pulmonary embolus.HIGH RISK: Target INR is 2.5-3.5 for patients with mechanical heart valves.CBC W/PLT COUNT & AUTO [id number] 05:22:17 Test Item Value Reference Range Interpretation Comments WHITE BLOOD CELL COUNT 9.2 K/ L 3.5-10.5 (BEAKER) (test code = 775) RED BLOOD CELL COUNT 3.80 M/ L 4.63-6.08 L (BEAKER) (test code = 761) HEMOGLOBIN (BEAKER) 9.0 GM/DL 13.7-17.5 L (test code = 410) HEMATOCRIT (BEAKER) 31.0 % 40.1-51.0 L (test code = 411) MEAN CORPUSCULAR 82 fL 79-92 Discordant results VOLUME (BEAKER) (test compar ed to previous code = 753) results; clinic al correlation req uired MEAN CORPUSCULAR 23.7 pg 25.7-32.2 L HEMOGLOBIN (BEAKER) (test code = 751) MEAN CORPUSCULAR 29.0 GM/DL 32.3-36.5 L HEMOGLOBIN CONC (BEAKER) (test code = 752) RED CELL DISTRIBUTION 20.8 % 11.6-14.4 H WIDTH (BEAKER) (test code = 412) PLATELET COUNT 161 K/CU MM 150-450 (BEAKER) (test code = 756) MEAN PLATELET VOLUME 10.4 fL 9.4-12.4 (BEAKER) (test code = 754) NUCLEATED RED BLOOD 0 /100 WBC 0-0 CELLS (BEAKER) (test code = 413) NEUTROPHILS RELATIVE 64 % PERCENT (BEAKER) (test code = 429) LYMPHOCYTES RELATIVE 24 % PERCENT (BEAKER) (test code = 430) MONOCYTES RELATIVE 8 % PERCENT (BEAKER) (test code = 431) EOSINOPHILS RELATIVE 1 % PERCENT (BEAKER) (test code = 432) BASOPHILS RELATIVE 1 % PERCENT (BEAKER) (test code = 437) NEUTROPHILS ABSOLUTE 5.94 K/ L 1.78-5.38 H COUNT (BEAKER) (test code = 670) LYMPHOCYTES ABSOLUTE 2.23 K/ L 1.32-3.57 COUNT (BEAKER) (test code = 414) MONOCYTES ABSOLUTE 0.77 K/ L 0.30-0.82 COUNT (BEAKER) (test code = 415) EOSINOPHILS ABSOLUTE 0.13 K/ L 0.04-0.54 COUNT (BEAKER) (test code = 416) BASOPHILS ABSOLUTE 0.05 K/ L 0.01-0.08 COUNT (BEAKER) (test code = 417) IMMATURE 1.30 % 0.00-1.00 H GRANULOCYTES-RELATIVE PERCENT (BEAKER) (test code = 2801) POCT-GLUCOSE [id number] 04:54:35 Test Item Value Reference Range Interpretation Comments POC-GLUCOSE METER 122 mg/dL 70-110 H : TESTED A T [facility] (BEAKER) (test code = [place], 1538) [address]: Software Quality Tester/Techni zaire ID = [id number] for VINICIUS PAREDES POCT-GLUCOSE [id number] 22:10:09 Test Item Value Reference Range Interpretation Comments POC-GLUCOSE METER 219 mg/dL 70-110 H : TESTED A T [facility] 67[address] (BEAKER) (test code = [place], 1538) [address]: Software Quality Tester/Techni zaire ID = [id number] for VINICIUS PAREDES BLOOD [id number] 21:00:36 Test Item Value Reference Range Interpretation Comments CULTURE (BEAKER) (test No growth in 5 days code = 1095) The specimen volume collected for this blood culture was below the optimum (10 mL per bottle or 20 mL total). Use of lower volumes may adversely affect recovery and/or detection times of some organisms.BLOOD [id number] 21:00:35 Test Item Value Reference Range Interpretation Comments CULTURE (BEAKER) (test No growth in 5 days code = 1095) The specimen volume collected for this blood culture was below the optimum (10 mL per bottle or 20 mL total). Use of lower volumes may adversely affect recovery and/or detection times of some organisms.POCT-GLUCOSE [id number] 16:33:21 Test Item Value Reference Range Interpretation Comments POC-GLUCOSE METER 173 mg/dL 70-110 H : TESTED A T [facility] 67[address] (BEAKER) (test code = [place], 153) [address]: Software Quality Tester/Techni zaire ID = [id number] for Da vis, Luna HIV-1 PCR, [id number] 13:48:28 Test Item Value Reference Range Interpretation Comments HIV-1 RESULT HIV RNA not detected HIV RNA not detected COMPONENT ([facility]) (test code = 2703) TACROLIMUS [id number] 10:03:46 Test Item Value Reference Range Interpretation Comments TACROLIMUS BLOOD 14.8 ng/mL 10.0-20.0 Test perfor med on [place] ([facility]) (test code Architec t Immunoassay = 657) system with Chemiluminescen t Microparticle Immunoassay (CM IA) technology. Software Quality Tester ID - ADMINPOCT-GLUCOSE [id number] 09:56:37 Test Item Value Reference Range Interpretation Comments POC-GLUCOSE METER 143 mg/dL 70-110 H : TESTED A T [facility] ([facility]) (test code = [place], 153) [address]: Software Quality Tester/Techni zaire ID = [id number] for Da vis, Luna GAMMA GLUTAMYL TRANSFERASE ([id number] 09:00:35 Test Item Value Reference Range Interpretation Comments GAMMA GLUTAMYL TRANSFERASE (AKER) 210 U/L 9-64 H (test code = 364) Software Quality Tester ID - MARCOPOCT-GLUCOSE [id number] 08:50:50 Test Item Value Reference Range Interpretation Comments POC-GLUCOSE METER 178 mg/dL 70-110 H : TESTED A T [facility] [address] ([facility]) (test code = [place], 153) [address]: Software Quality Tester/Techni zaire ID = [id number] for Da vis, Luna POCT-GLUCOSE [id number] 06:50:35 Test Item Value Reference Range Interpretation Comments POC-GLUCOSE METER 154 mg/dL 70-110 H : TESTED A T [facility] [address] ([facility]) (test code = [place], 153) [address]: Software Quality Tester/Techni zaire ID = [id number] for Marta Hernandez HEPATIC FUNCTION [id number] 06:39:56 Test Item Value Reference Range Interpretation Comments TOTAL PROTEIN ([facility]) (test code = 5.5 gm/dL 6.0-8.3 L 770) ALBUMIN (BEAKER) (test code = 1145) 2.4 g/dL 3.5-5.0 L BILIRUBIN TOTAL (BEAKER) (test code 1.5 mg/dL 0.2-1.2 H = 377) BILIRUBIN DIRECT (BEAKER) (test 0.8 mg/dL 0.1-0.5 H code = 706) ALKALINE PHOSPHATASE (BEAKER) (test 479 U/L 40-150 H code = 346) AST (SGOT) (BEAKER) (test code = 18 U/L 5-34 353) ALT (SGPT) (BEAKER) (test code = 31 U/L 6-55 347) Software Quality Tester ID - [id number] 06:39:55 Test Item Value Reference Range Interpretation Comments MAGNESIUM (BEAKER) (test code = 1.6 mg/dL 1.6-2.6 627) Software Quality Tester ID - [id number] 06:39:55 Test Item Value Reference Range Interpretation Comments PHOSPHORUS (BEAKER) (test code = 2.6 mg/dL 2.3-4.7 604) Software Quality Tester ID - MARCOBASIC METABOLIC [id number] 06:39:54 Test Item Value Reference Range Interpretation Comments SODIUM (BEAKER) 134 meq/L 136-145 L (test code = 381) POTASSIUM 4.4 meq/L 3.5-5.1 (BEAKER) (test code = 379) CHLORIDE (BEAKER) 107 meq/L 98-107 (test code = 382) CO2 (BEAKER) 21 meq/L 22-29 L (test code = 355) BLOOD UREA 12 mg/dL 7-21 NITROGEN (BEAKER) (test code = 354) CREATININE 0.59 mg/dL 0.57-1.25 (BEAKER) (test code = 358) GLUCOSE RANDOM 184 mg/dL 70-105 H (BEAKER) (test code = 652) CALCIUM (BEAKER) 8.0 mg/dL 8.4-10.2 L (test code = 697) EGFR (BEAKER) 106 Interpretatio n of eGFR (test code = mL/min/1.73 values Stage De scription 1092) sq m Result G1 Shahnaz l or high >=90 G2 Mildly decreased 60-89 G3a Mildl y to moderately 45-5 9 G3b Moderately to s everely 30-44 G4 Severl y decreased 15-29 G5 Kidney failure <15Reported eGF R is based on the CKD-EPI 202 equation that d oes not use a race coefficientEsti mated GFR is not as accur ate as Creatinine Bonita chaudhari in predicting glom erular filtration rate . Estimated GFR is not appl icable for dialysis patien ts Software Quality Tester ID - MARCOCBC W/PLT COUNT & AUTO [id number] 06:08:13 Test Item Value Reference Range Interpretation Comments WHITE BLOOD CELL COUNT (BEAKER) 8.3 K/ L 3.5-10.5 (test code = 775) RED BLOOD CELL COUNT (BEAKER) 3.64 M/ L 4.63-6.08 L (test code = 761) HEMOGLOBIN (BEAKER) (test code = 8.5 GM/DL 13.7-17.5 L 410) HEMATOCRIT (BEAKER) (test code = 28.5 % 40.1-51.0 L 411) MEAN CORPUSCULAR VOLUME (BEAKER) 78 fL 79-92 L (test code = 753) MEAN CORPUSCULAR HEMOGLOBIN 23.4 pg 25.7-32.2 L (BEAKER) (test code = 751) MEAN CORPUSCULAR HEMOGLOBIN CONC 29.8 GM/DL 32.3-36.5 L (BEAKER) (test code = 752) RED CELL DISTRIBUTION WIDTH 20.2 % 11.6-14.4 H (BEAKER) (test code = 412) PLATELET COUNT (BEAKER) (test 145 K/CU MM 150-450 L code = 756) MEAN PLATELET VOLUME (BEAKER) 10.1 fL 9.4-12.4 (test code = 754) NUCLEATED RED BLOOD CELLS 0 /100 WBC 0-0 (BEAKER) (test code = 413) NEUTROPHILS RELATIVE PERCENT 76 % (BEAKER) (test code = 429) LYMPHOCYTES RELATIVE PERCENT 15 % (BEAKER) (test code = 430) MONOCYTES RELATIVE PERCENT 8 % (BEAKER) (test code = 431) EOSINOPHILS RELATIVE PERCENT 0 % (BEAKER) (test code = 432) BASOPHILS RELATIVE PERCENT 0 % (BEAKER) (test code = 437) NEUTROPHILS ABSOLUTE COUNT 6.28 K/ L 1.78-5.38 H (BEAKER) (test code = 670) LYMPHOCYTES ABSOLUTE COUNT 1.27 K/ L 1.32-3.57 L (BEAKER) (test code = 414) MONOCYTES ABSOLUTE COUNT (BEAKER) 0.65 K/ L 0.30-0.82 (test code = 415) EOSINOPHILS ABSOLUTE COUNT 0.00 K/ L 0.04-0.54 L (BEAKER) (test code = 416) BASOPHILS ABSOLUTE COUNT (BEAKER) 0.02 K/ L 0.01-0.08 (test code = 417) IMMATURE GRANULOCYTES-RELATIVE 1.00 % 0.00-1.00 PERCENT (BEAKER) (test code = 2801) POCT-GLUCOSE [id number] 04:57:05 Test Item Value Reference Range Interpretation Comments POC-GLUCOSE METER 201 mg/dL 70-110 H : TESTED A T [facility] (BEAKER) (test code = [place], 153) [address]: Software Quality Tester/Techni zaire ID = [id number] for HAYDEN SERVIN POCT-GLUCOSE [id number] 03:48:29 Test Item Value Reference Range Interpretation Comments POC-GLUCOSE METER 189 mg/dL 70-110 H : TESTED A T [facility] 6720 (BEAKER) (test code = [place], 153) [address]: Software Quality Tester/Techni zaire ID = [id number] for HAYDEN SERVIN POCT-GLUCOSE [id number] 02:46:42 Test Item Value Reference Range Interpretation Comments POC-GLUCOSE METER 222 mg/dL 70-110 H : TESTED A T [facility] 6720 (BEAKER) (test code = [place], 153) [address]: Software Quality Tester/Techni zaire ID = [id number] for Marta Hernandez POCT-GLUCOSE [id number] 00:49:32 Test Item Value Reference Range Interpretation Comments POC-GLUCOSE METER 290 mg/dL 70-110 H : TESTED A T [facility] 6720 (BEAKER) (test code = [place], 153) [address]: Software Quality Tester/Techni zaire ID = [id number] for Marta Hernandez URINALYSIS W/ REFLEX URINE [id number] 23:45:13 Test Item Value Reference Range Interpretation Comments COLOR (BEAKER) (test code = 470) Yellow CLARITY (BEAKER) (test code = Clear 469) SPECIFIC GRAVITY UA (BEAKER) 1.038 1.001-1.035 H (test code = 468) PH UA (BEAKER) (test code = 467) 6.0 5.0-8.0 PROTEIN UA (BEAKER) (test code = Negative Negative 464) GLUCOSE UA (BEAKER) (test code = >1000 mg/dL Negative A 365) KETONES UA (BEAKER) (test code = Trace Negative A 371) BILIRUBIN UA (BEAKER) (test code Negative Negative = 462) BLOOD UA (BEAKER) (test code = Negative Negative 461) NITRITE UA (BEAKER) (test code = Negative Negative 465) LEUKOCYTE ESTERASE UA (BEAKER) Negative Negative (test code = 466) UROBILINOGEN UA (BEAKER) (test 0.2 0.2-1.0 code = 463) RBC UA (BEAKER) (test code = 519) 1 /HPF WBC UA (BEAKER) (test code = 520) < /HPF SQUAMOUS EPITHELIAL (BEAKER) < /HPF (test code = 516) SOURCE(BEAKER) (test code = 2795) Software Quality Tester ID - [auto]Software Quality Tester ID - [id number] 22:55:32 Test Item Value Reference Range Interpretation Comments GLUCOSE RANDOM (BEAKER) (test code 462 mg/dL 70-105 HH = 652) Software Quality Tester ID - [id number] 22:51:28 Test Item Value Reference Range Interpretation Comments POTASSIUM (BEAKER) (test code = 4.7 meq/L 3.5-5.1 379) Software Quality Tester ID - ADMINPOCT-GLUCOSE [id number] 19:34:47 Test Item Value Reference Range Interpretation Comments POC-GLUCOSE METER 417 mg/dL 70-110 HH : Notified RN/MD: (BEAKER) (test code = TESTED AT [place] [address]) [facility], [address]: Software Quality Tester/Techni zaire ID = [id number] for HAYDEN SERVIN POCT-GLUCOSE [id number] 17:56:00 Test Item Value Reference Range Interpretation Comments POC-GLUCOSE METER 460 mg/dL 70-110 HH : Notified RN/MD: TESTED (BEAKER) (test code AT [place] [address] [facility] = 1538) [facility], [address]: Software Quality Tester/Techni zaire ID = [id number] for Jennifer Diego, Gene sis POCT-GLUCOSE [id number] 16:47:05 Test Item Value Reference Range Interpretation Comments POC-GLUCOSE METER 412 mg/dL 70-110 HH : TESTED A T [facility] (BEAKER) (test code = NICOLE Arita [facility], 1538) [address]: Software Quality Tester/Techni zaire ID = [id number] for Padmini Hussein POCT-GLUCOSE [id number] 16:24:54 Test Item Value Reference Range Interpretation Comments POC-GLUCOSE METER 403 mg/dL 70-110 HH : TESTED A T [facility] (BEAKER) (test code [facility], = 1538) [address]: Software Quality Tester/Techni zaire ID = [id number] for Jennifer Diego, Gene sis POCT-GLUCOSE [id number] 11:19:43 Test Item Value Reference Range Interpretation Comments POC-GLUCOSE METER 271 mg/dL 70-110 H : [facility] (test code [facility], = 1538) [address]: Software Quality Tester/Techni zaire ID = [id number] for Jennifer Diego, Gene sis VANCOMYCIN LEVEL, [id number] 11:06:42 Test Item Value Reference Range Interpretation Comments VANCOMYCIN TROUGH (BEAKER) (test 14.5 ug/mL 10.0-20.0 code = 522) Software Quality Tester ID - MARCOCBC W/PLT COUNT & AUTO [id number] 11:05:40 Test Item Value Reference Range Interpretation Comments WHITE BLOOD CELL COUNT (BEAKER) 8.0 K/ L 3.5-10.5 (test code = 775) RED BLOOD CELL COUNT (BEAKER) 4.11 M/ L 4.63-6.08 L (test code = 761) HEMOGLOBIN (BEAKER) (test code = 9.6 GM/DL 13.7-17.5 L 410) HEMATOCRIT (BEAKER) (test code = 33.2 % 40.1-51.0 L 411) MEAN CORPUSCULAR VOLUME (BEAKER) 81 fL 79-92 (test code = 753) MEAN CORPUSCULAR HEMOGLOBIN 23.4 pg 25.7-32.2 L (BEAKER) (test code = 751) MEAN CORPUSCULAR HEMOGLOBIN CONC 28.9 GM/DL 32.3-36.5 L (BEAKER) (test code = 752) RED CELL DISTRIBUTION WIDTH 20.9 % 11.6-14.4 H (BEAKER) (test code = 412) PLATELET COUNT (BEAKER) (test 166 K/CU MM 150-450 code = 756) MEAN PLATELET VOLUME (BEAKER) 9.6 fL 9.4-12.4 (test code = 754) NUCLEATED RED BLOOD CELLS 0 /100 WBC 0-0 (BEAKER) (test code = 413) NEUTROPHILS RELATIVE PERCENT 67 % (BEAKER) (test code = 429) LYMPHOCYTES RELATIVE PERCENT 15 % (BEAKER) (test code = 430) MONOCYTES RELATIVE PERCENT 10 % (BEAKER) (test code = 431) EOSINOPHILS RELATIVE PERCENT 6 % (BEAKER) (test code = 432) BASOPHILS RELATIVE PERCENT 1 % (BEAKER) (test code = 437) NEUTROPHILS ABSOLUTE COUNT 5.33 K/ L 1.78-5.38 (BEAKER) (test code = 670) LYMPHOCYTES ABSOLUTE COUNT 1.21 K/ L 1.32-3.57 L (BEAKER) (test code = 414) MONOCYTES ABSOLUTE COUNT (BEAKER) 0.79 K/ L 0.30-0.82 (test code = 415) EOSINOPHILS ABSOLUTE COUNT 0.44 K/ L 0.04-0.54 (BEAKER) (test code = 416) BASOPHILS ABSOLUTE COUNT (BEAKER) 0.08 K/ L 0.01-0.08 (test code = 417) IMMATURE GRANULOCYTES-RELATIVE 1.60 % 0.00-1.00 H PERCENT (BEAKER) (test code = 2801) TACROLIMUS [id number] 09:16:31 Test Item Value Reference Range Interpretation Comments TACROLIMUS BLOOD 11.2 ng/mL 10.0-20.0 Test perfor med on [place] (BEAKER) (test code Architec t Immunoassay = 657) system with Chemiluminescen t Microparticle Immunoassay (CM IA) technology. Software Quality Tester ID - ADMINPOCT-GLUCOSE [id number] 07:38:14 Test Item Value Reference Range Interpretation Comments POC-GLUCOSE METER 106 mg/dL 70-110 : TESTED A T [facility] [address] (BEAKER) (test code = [place], 1538) [address]: Software Quality Tester/Techni zaire ID = [id number] for Padmini Hussein HEPATIC FUNCTION [id number] 07:12:14 Test Item Value Reference Range Interpretation Comments TOTAL PROTEIN (BEAKER) 5.9 gm/dL 6.0-8.3 L Speci men slightly (test code = 770) hemolyzed ALBUMIN (BEAKER) (test 2.5 g/dL 3.5-5.0 L Speci men slightly code = 1145) hemolyzed BILIRUBIN TOTAL 1.8 mg/dL 0.2-1.2 H Specimen sli ghtly (BEAKER) (test code = hemoly zed 377) BILIRUBIN DIRECT 0.9 mg/dL 0.1-0.5 H Specimen sl ightly (BEAKER) (test code = hemoly zed 706) ALKALINE PHOSPHATASE 534 U/L 40-150 H (BEAKER) (test code = 346) AST (SGOT) (BEAKER) 30 U/L 5-34 Specimen slightly (test code = 353) hemolyzed ALT (SGPT) (BEAKER) 34 U/L 6-55 Specimen slightly (test code = 347) hemolyzed Software Quality Tester ID - [id number] 07:12:13 Test Item Value Reference Range Interpretation Comments PHOSPHORUS (BEAKER) 3.2 mg/dL 2.3-4.7 Specimen slightly (test code = 604) hemolyzed Software Quality Tester ID - MARCOBASIC METABOLIC [id number] 07:12:13 Test Item Value Reference Range Interpretation Comments SODIUM (BEAKER) 134 meq/L 136-145 L (test code = 381) POTASSIUM 4.2 meq/L 3.5-5.1 Specimen slight ly (BEAKER) (test hemolyzed code = 379) CHLORIDE (BEAKER) 106 meq/L 98-107 (test code = 382) CO2 (BEAKER) 22 meq/L 22-29 (test code = 355) BLOOD UREA 8 mg/dL 7-21 NITROGEN (BEAKER) (test code = 354) CREATININE 0.64 mg/dL 0.57-1.25 Specimen slight ly (BEAKER) (test hemolyzed code = 358) GLUCOSE RANDOM 141 mg/dL 70-105 H (BEAKER) (test code = 652) CALCIUM (BEAKER) 8.3 mg/dL 8.4-10.2 L (test code = 697) EGFR (BEAKER) 104 Interpretatio n of eGFR (test code = [...] not appl icable for dialysis patien ts Software Quality Tester ID - [id number] 07:12:12 Test Item Value Reference Range Interpretation Comments MAGNESIUM (BEAKER) 1.3 mg/dL 1.6-2.6 L Specimen slightly (test code = 627) hemolyzed Software Quality Tester ID - BEBOOPROTHROMBIN TIME/[id number] 06:28:27 Test Item Value Reference Range Interpretation Comments PROTIME (BEAKER) (test code = 14.3 seconds 11.9-14.2 H 759) INR (BEAKER) (test code = 370) 1.18 <=5.90 RECOMMENDED COUMADIN/WARFARIN INR THERAPY RANGESSTANDARD DOSE: 2.0 - 3.0 Includes: PROPHYLAXIS for venous thrombosis, systemic embolization; TREATMENT for venous thrombosis and/or pulmonary embolus.HIGH RISK: Target INR is 2.5-3.5 for patients with mechanical heart valves.POCT-GLUCOSE [id number] 21:42:02 Test Item Value Reference Range Interpretation Comments POC-GLUCOSE METER 233 mg/dL 70-110 H : TESTED A T [facility] 6720 ([employer]) (test code [facility], = 1538) 98075: Software Quality Tester/Techni zaire ID = [id number] for RHYS CISSE TIANA POCT-GLUCOSE [id number] 15:42:04 Test Item Value Reference Range Interpretation Comments POC-GLUCOSE METER 260 mg/dL 70-110 H : TESTED A T [facility] 6720 ([employer]) (test code = [place], 153) [address]65: Software Quality Tester/Techni zaire ID = [id number] for Chuck zhanger, Deatra SPUTUM CULTURE + GRAM [id number] 11:49:53 Test Item Value Reference Range Interpretation Comments CULTURE (BEAKER) 4+ Normal respiratory (test code = 1095) rosalie present GRAM STAIN RESULT <1+ WBCs (BEAKER) (test code = 1123) GRAM STAIN RESULT 5-10 epithelial cells (BEAKER) (test code = 28484) GRAM STAIN RESULT <1+ gram positive rods (BEAKER) (test code = 37501) GRAM STAIN RESULT 4+ gram positive cocci (BEAKER) (test code = in pairs 809204) GRAM STAIN RESULT <1+ gram positive cocci (BEAKER) (test code = in chains 304514) POCT-GLUCOSE [id number] 11:31:06 Test Item Value Reference Range Interpretation Comments POC-GLUCOSE METER 146 mg/dL 70-110 H : TESTED A T [facility] 6720 (BEAKER) (test code = [place], 153) 34443: Software Quality Tester/Techni zaire ID = [id number] for Chuck zhanger, Deatra TACROLIMUS [id number] 09:49:52 Test Item Value Reference Range Interpretation Comments TACROLIMUS BLOOD 8.3 ng/mL 10.0-20.0 L Test perfor med on Calhoun (BEAKER) (test code Architec t Immunoassay = 657) system with Chemiluminescen t Microparticle I mmunoassay (CMIA) omi khanna Software Quality Tester ID - ADMINPOCT-GLUCOSE [id number] 07:27:57 Test Item Value Reference Range Interpretation Comments POC-GLUCOSE METER 75 mg/dL 70-110 : TESTED A T [facility] 6720 (BEAKER) (test code = [place], 1538) 10767: Software Quality Tester/Techni zaire ID = [id number] for Teto er, Deatra HEPATIC FUNCTION [id number] 05:32:17 Test Item Value Reference Range Interpretation Comments TOTAL PROTEIN (BEAKER) 5.5 gm/dL 6.0-8.3 L Speci men slightly (test code = 770) hemolyzed ALBUMIN (BEAKER) (test 2.3 g/dL 3.5-5.0 L Speci men slightly code = 1145) hemolyzed BILIRUBIN TOTAL 1.9 mg/dL 0.2-1.2 H Specimen sli ghtly (BEAKER) (test code = hemoly zed 377) BILIRUBIN DIRECT 0.9 mg/dL 0.1-0.5 H Specimen sl ightly (BEAKER) (test code = hemoly zed 706) ALKALINE PHOSPHATASE 506 U/L 40-150 H (BEAKER) (test code = 346) AST (SGOT) (BEAKER) 37 U/L 5-34 H Specimen slightly (test code = 353) hemolyzed ALT (SGPT) (BEAKER) 34 U/L 6-55 Specimen slightly (test code = 347) hemolyzed Software Quality Tester ID Andrea HILL WGAMMA GLUTAMYL TRANSFERASE (GGT)2022-09-21 05:32:17 Test Item Value Reference Range Interpretation Comments GAMMA GLUTAMYL 203 U/L 9-64 H Specimen slig htly TRANSFERASE (BEAKER) hemolyz ed (test code = 364) Software Quality Tester ID Andrea HILL [id number] 05:32:16 Test Item Value Reference Range Interpretation Comments PHOSPHORUS (BEAKER) 3.6 mg/dL 2.3-4.7 Specimen slightly (test code = 604) hemolyzed Software Quality Tester ID Andrea HILL WBASIC METABOLIC [id number] 05:32:16 Test Item Value Reference Range Interpretation Comments SODIUM (BEAKER) 139 meq/L 136-145 (test code = 381) POTASSIUM 4.1 meq/L 3.5-5.1 Specimen slight ly (BEAKER) (test hemolyzed code = 379) CHLORIDE (BEAKER) 108 meq/L 98-107 H (test code = 382) CO2 (BEAKER) 24 meq/L 22-29 (test code = 355) BLOOD UREA 8 mg/dL 7-21 NITROGEN (BEAKER) (test code = 354) CREATININE 0.64 mg/dL 0.57-1.25 Specimen slight ly (BEAKER) (test hemolyzed code = 358) GLUCOSE RANDOM 70 mg/dL 70-105 (BEAKER) (test code = 652) CALCIUM (BEAKER) 8.2 mg/dL 8.4-10.2 L (test code = 697) EGFR (BEAKER) 104 Interpretatio n of eGFR (test code = [...] not appl icable for dialysis patien ts Software Quality Tester ID - LIZ [id number] 05:32:15 Test Item Value Reference Range Interpretation Comments MAGNESIUM (BEAKER) 1.6 mg/dL 1.6-2.6 Specimen slightly (test code = 627) hemolyzed Software Quality Tester ID nAdrea HILL WPROTHROMBIN TIME/[id number] 05:16:21 Test Item Value Reference Range Interpretation Comments PROTIME (BEAKER) (test code = 14.6 seconds 11.9-14.2 H 759) INR (BEAKER) (test code = 370) 1.21 <=5.90 RECOMMENDED COUMADIN/WARFARIN INR THERAPY RANGESSTANDARD DOSE: 2.0 - 3.0 Includes: PROPHYLAXIS for venous thrombosis, systemic embolization; TREATMENT for venous thrombosis and/or pulmonary embolus.HIGH RISK: Target INR is 2.5-3.5 for patients with mechanical heart valves.CBC W/PLT COUNT & AUTO [id number] 04:56:34 Test Item Value Reference Range Interpretation Comments WHITE BLOOD CELL COUNT (BEAKER) 7.0 K/ L 3.5-10.5 (test code = 775) RED BLOOD CELL COUNT (BEAKER) 3.62 M/ L 4.63-6.08 L (test code = 761) HEMOGLOBIN (BEAKER) (test code = 8.5 GM/DL 13.7-17.5 L 410) HEMATOCRIT (BEAKER) (test code = 28.7 % 40.1-51.0 L 411) MEAN CORPUSCULAR VOLUME (BEAKER) 79 fL 79-92 (test code = 753) MEAN CORPUSCULAR HEMOGLOBIN 23.5 pg 25.7-32.2 L (BEAKER) (test code = 751) MEAN CORPUSCULAR HEMOGLOBIN CONC 29.6 GM/DL 32.3-36.5 L (BEAKER) (test code = 752) RED CELL DISTRIBUTION WIDTH 20.5 % 11.6-14.4 H (BEAKER) (test code = 412) PLATELET COUNT (BEAKER) (test 156 K/CU MM 150-450 code = 756) MEAN PLATELET VOLUME (BEAKER) 10.1 fL 9.4-12.4 (test code = 754) NUCLEATED RED BLOOD CELLS 0 /100 WBC 0-0 (BEAKER) (test code = 413) NEUTROPHILS RELATIVE PERCENT 58 % (BEAKER) (test code = 429) LYMPHOCYTES RELATIVE PERCENT 23 % (BEAKER) (test code = 430) MONOCYTES RELATIVE PERCENT 11 % (BEAKER) (test code = 431) EOSINOPHILS RELATIVE PERCENT 6 % (BEAKER) (test code = 432) BASOPHILS RELATIVE PERCENT 1 % (BEAKER) (test code = 437) NEUTROPHILS ABSOLUTE COUNT 4.05 K/ L 1.78-5.38 (BEAKER) (test code = 670) LYMPHOCYTES ABSOLUTE COUNT 1.60 K/ L 1.32-3.57 (BEAKER) (test code = 414) MONOCYTES ABSOLUTE COUNT (BEAKER) 0.79 K/ L 0.30-0.82 (test code = 415) EOSINOPHILS ABSOLUTE COUNT 0.40 K/ L 0.04-0.54 (BEAKER) (test code = 416) BASOPHILS ABSOLUTE COUNT (BEAKER) 0.07 K/ L 0.01-0.08 (test code = 417) IMMATURE GRANULOCYTES-RELATIVE 1.70 % 0.00-1.00 H PERCENT (BEAKER) (test code = 2801) VANCOMYCIN LEVEL, [id number] 01:05:06 Test Item Value Reference Range Interpretation Comments VANCOMYCIN TROUGH (BEAKER) (test 9.3 ug/mL 10.0-20.0 L code = 522) Software Quality Tester ID - mmPOCT-GLUCOSE [id number] 21:34:28 Test Item Value Reference Range Interpretation Comments POC-GLUCOSE METER 121 mg/dL 70-110 H : [facility] ([facility]ER[facility] (test code = [place], 1538) 632[address]: Software Quality Tester/Techni zaire ID = [id number] for ELBERT FERNANDA, PROSPER POCT-GLUCOSE [id number] 16:27:48 Test Item Value Reference Range Interpretation Comments POC-GLUCOSE METER 207 mg/dL 70-110 H : TESTED A T [facility] 6720 ([employer]) (test code = [place], 153) 96067: Software Quality Tester/Techni zaire ID = [id number] for Go ngora, Russell EBV VIRAL [id number] 15:39:21 Test Item Value Reference Range Interpretation Comments EBV VIRAL LOAD - Negative or below See_Comment [Auto mated message] NEGATIVE ([place]) the linear range The sy stem which (test code = of the assay generated this 2559) (<500 IU /mL) result transmi tted reference range : <500 - >5,00 0,000 IU/mL. The refe rence range was not u sed to interpret th is result as normal/abnormal . URINE [id number] 13:04:01 Test Item Value Reference Range Interpretation Comments CULTURE ([employer]) (test <10,000 col/mL skin code = 1095) rosalie If your patient does not have signs or symptoms of UTI, it is recommended NOT to treat, with the exception of and prior to urologic procedures.POCT- GLUCOSE [id number] 11:22:44 Test Item Value Reference Range Interpretation Comments POC-GLUCOSE METER 153 mg/dL 70-110 H : TESTED A T [facility] 6720 ([employer]) (test code = [place], 153) 17856: Software Quality Tester/Techni zaire ID = [id number] for Go ngora, Russell TACROLIMUS [id number] 10:24:49 Test Item Value Reference Range Interpretation Comments TACROLIMUS BLOOD 4.6 ng/mL 10.0-20.0 L Test perfor med on [place] ([employer]) (test code Architec t Immunoassay = 657) system with Chemiluminescen t Microparticle I mmunoassay (CMIA) omi khanna Software Quality Tester ID - ADMINPOCT-GLUCOSE [id number] 07:31:13 Test Item Value Reference Range Interpretation Comments POC-GLUCOSE METER 75 mg/dL 70-110 : TESTED A T [facility] 6720 ([employer]) (test code = [place], 153) 37067: Software Quality Tester/Techni zaire ID = [id number] for Russell Summers BASIC METABOLIC [id number] 06:51:44 Test Item Value Reference Range Interpretation Comments SODIUM (BEAKER) 138 meq/L 136-145 (test code = 381) POTASSIUM 3.7 meq/L 3.5-5.1 (BEAKER) (test code = 379) CHLORIDE (BEAKER) 107 meq/L 98-107 (test code = 382) CO2 (BEAKER) 24 meq/L 22-29 (test code = 355) BLOOD UREA 7 mg/dL 7-21 NITROGEN (BEAKER) (test code = 354) CREATININE 0.65 mg/dL 0.57-1.25 (BEAKER) (test code = 358) GLUCOSE RANDOM 78 mg/dL 70-105 (BEAKER) (test code = 652) CALCIUM (BEAKER) 7.8 mg/dL 8.4-10.2 L (test code = 697) EGFR (BEAKER) 104 Interpretatio n of eGFR (test code = mL/min/1.73 values Stage De scription 1092) sq m Result G1 Shahnaz l or high >=90 G2 Mildly decreased 60-89 G3a Mildl y to moderately 45- 59 G3b Moderately to s everely 30-44 G4 Severl y decreased 15-29 G5 Kidney failure <15Reported eGF R is based on the CKD-EPI 2020 equation that d oes not use a race coefficientEsti mated GFR is not as accur ate as Creatinine Bonita fara in predicting glom erular filtration rate . Estimated GFR is not appl icable for dialysis patien ts Software Quality Tester ID - MARCOGAMMA GLUTAMYL TRANSFERASE (GGT)2022-09-20 06:16:32 Test Item Value Reference Range Interpretation Comments GAMMA GLUTAMYL TRANSFERASE (BEAKER) 170 U/L 9-64 H (test code = 364) Software Quality Tester ID - MARCOHEPATIC FUNCTION [id number] 06:16:31 Test Item Value Reference Range Interpretation Comments TOTAL PROTEIN (BEAKER) (test code = 5.2 gm/dL 6.0-8.3 L 770) ALBUMIN (BEAKER) (test code = 1145) 2.3 g/dL 3.5-5.0 L BILIRUBIN TOTAL (BEAKER) (test code 1.6 mg/dL 0.2-1.2 H = 377) BILIRUBIN DIRECT (BEAKER) (test 0.9 mg/dL 0.1-0.5 H code = 706) ALKALINE PHOSPHATASE (BEAKER) (test 497 U/L 40-150 H code = 346) AST (SGOT) (BEAKER) (test code = 27 U/L 5-34 353) ALT (SGPT) (BEAKER) (test code = 36 U/L 6-55 347) Software Quality Tester ID - [id number] 06:16:30 Test Item Value Reference Range Interpretation Comments MAGNESIUM (BEAKER) (test code = 1.5 mg/dL 1.6-2.6 L 627) Software Quality Tester ID - [id number] 06:16:30 Test Item Value Reference Range Interpretation Comments PHOSPHORUS (BEAKER) (test code = 2.8 mg/dL 2.3-4.7 604) Software Quality Tester ID - MARCOPROTHROMBIN TIME/[id number] 05:42:39 Test Item Value Reference Range Interpretation Comments PROTIME (BEAKER) (test code = 15.0 seconds 11.9-14.2 H 759) INR (BEAKER) (test code = 370) 1.26 <=5.90 RECOMMENDED COUMADIN/WARFARIN INR THERAPY RANGESSTANDARD DOSE: 2.0 - 3.0 Includes: PROPHYLAXIS for venous thrombosis, systemic embolization; TREATMENT for venous thrombosis and/or pulmonary embolus.HIGH RISK: Target INR is 2.5-3.5 for patients with mechanical heart valves.VANCOMYCIN LEVEL, [id number] 05:41:00 Test Item Value Reference Range Interpretation Comments VANCOMYCIN TROUGH (BEAKER) (test 16.7 ug/mL 10.0-20.0 code = 522) Software Quality Tester ID - mmCBC W/PLT COUNT & AUTO [id number] 05:34:19 Test Item Value Reference Range Interpretation Comments WHITE BLOOD CELL COUNT (BEAKER) 8.3 K/ L 3.5-10.5 (test code = 775) RED BLOOD CELL COUNT (BEAKER) 3.64 M/ L 4.63-6.08 L (test code = 761) HEMOGLOBIN (BEAKER) (test code = 8.6 GM/DL 13.7-17.5 L 410) HEMATOCRIT (BEAKER) (test code = 29.1 % 40.1-51.0 L 411) MEAN CORPUSCULAR VOLUME (BEAKER) 80 fL 79-92 (test code = 753) MEAN CORPUSCULAR HEMOGLOBIN 23.6 pg 25.7-32.2 L (BEAKER) (test code = 751) MEAN CORPUSCULAR HEMOGLOBIN CONC 29.6 GM/DL 32.3-36.5 L (BEAKER) (test code = 752) RED CELL DISTRIBUTION WIDTH 20.3 % 11.6-14.4 H (BEAKER) (test code = 412) PLATELET COUNT (BEAKER) (test 155 K/CU MM 150-450 code = 756) MEAN PLATELET VOLUME (BEAKER) 10.1 fL 9.4-12.4 (test code = 754) NUCLEATED RED BLOOD CELLS 0 /100 WBC 0-0 (BEAKER) (test code = 413) NEUTROPHILS RELATIVE PERCENT 62 % (BEAKER) (test code = 429) LYMPHOCYTES RELATIVE PERCENT 18 % (BEAKER) (test code = 430) MONOCYTES RELATIVE PERCENT 10 % (BEAKER) (test code = 431) EOSINOPHILS RELATIVE PERCENT 7 % (BEAKER) (test code = 432) BASOPHILS RELATIVE PERCENT 1 % (BEAKER) (test code = 437) NEUTROPHILS ABSOLUTE COUNT 5.16 K/ L 1.78-5.38 (BEAKER) (test code = 670) LYMPHOCYTES ABSOLUTE COUNT 1.51 K/ L 1.32-3.57 (BEAKER) (test code = 414) MONOCYTES ABSOLUTE COUNT (BEAKER) 0.84 K/ L 0.30-0.82 H (test code = 415) EOSINOPHILS ABSOLUTE COUNT 0.60 K/ L 0.04-0.54 H (BEAKER) (test code = 416) BASOPHILS ABSOLUTE COUNT (BEAKER) 0.09 K/ L 0.01-0.08 H (test code = 417) IMMATURE GRANULOCYTES-RELATIVE 1.60 % 0.00-1.00 H PERCENT (BEAKER) (test code = 2801) POCT-GLUCOSE [id number] 22:10:12 Test Item Value Reference Range Interpretation Comments POC-GLUCOSE METER 121 mg/dL 70-110 H : TESTED A T [facility] 6720 (BEAKER) (test code = [place], 1538) 60145: Software Quality Tester/Techni zaire ID = [id number] for MS IBI, MNCEDISI POCT-GLUCOSE [id number] 16:55:26 Test Item Value Reference Range Interpretation Comments POC-GLUCOSE METER 249 mg/dL 70-110 H : TESTED A T [facility] 6720 ([employer]) (test code = [facility], 1538) 839[address]: Software Quality Tester/Techni zaire ID = [id number] for Russell Adame CMV PCR, [id number] 14:08:08 Test Item Value Reference Range Interpretation Comments CMV VIRAL LOAD - Negative or below See_Comment [Auto mated message] NEGATIVE ([place]) the linear range The sy stem which (test code = of the assay generated this 2558) (<300 IU/mL) result transmit lisa reference range : <300 - >3,00 0,000 IU/mL. The refe rence range was not u sed to interpret th is result as normal/abnormal . POCT-GLUCOSE [id number] 12:54:03 Test Item Value Reference Range Interpretation Comments POC-GLUCOSE METER 133 mg/dL 70-110 H : TESTED A T [facility] 6720 ([employer]) (test code = [facility], 1538) 52[address]: Software Quality Tester/Techni zaire ID = [id number] for SHARON MENDOZA SARS-COV2/RT-PCR ([facility])2022-09-19 12:44:56 Test Item Value Reference Range Interpretation Comments SARS-COV2/RT-PCR Negative Negative The SARS-Co V-2 target (test code = nucleic acids a re not [id number]) detected in thi s specimen. Negative result s do not preclude SARS-C oV-2 infection and s hould not be used as the jese e basis for patient managem ent decisions. Nega tive results must be combine d with clinical observ ations, patient history , and epidemiological information. A false negativ e result may occur if a spec imen is improperly cayla ected, transported or handled. This SARS CoV-2 test is a rapid, real-time RT-PC R test intended for th e qualitative detection of nu cleic acid from SARS-CoV-2 in a nasopharyngeal swab specimen collected from individuals suspected of CO VID-19 by their healthcar e provider. This test has been authorized by FDA under an EUA for use by authorized laboratories. This test is only authorized for the duration of the declaration that circumstances exist justifying the authorization of emergency use of in vitro diagnostic tests for detection and/or diagnosis of COVID-19 under Section 564(b)(1) of the Federal Food, Drug and Cosmetic Act, 21 U.S.C. 360bbb-3(b)(1), unless the authorization is terminated or revoked sooner. Fact Sheet for Healthcare Providers: https://www.[employer] m/Documents/Xpert%20Xpress%20SARS%20CoV-2/Fact%20Sheets/302-3802%61[facility]%20 HEALTHCARE%20PROVIDERS%20FACT%20SHEET.pdf Fact Sheet for Healthcare Patients: https://www.[employer]ro[employer]/Documents/Xpert%20Xp ress%20SARS%20CoV-2/Fact%20Sheets/302-3801%01CTXD-EAC-4%20PATIENT%20FACT%20SHEET .pdfRAD, ABDOMEN/KUB, 1 VIEW [id number] 10:43:00REFERRING MD: CHERELLE SALVADOR Reason for exam:->evaluate for CBD stent migration [facility] KALEN CARDONA : 1955 Sex: MFINAL REPORT CLINICAL HISTORY: evaluate for CBD stent migration TECHNIQUE: Supine abdomen COMPARISON: 10/28/2018 IMPRESSION: There are upper abdominal skin jacqueline. A common bile duct stent is seen in the right upper abdomen. The bowel gas pattern is nonspecific. Free air and air-fluid levels are not definitively seen, but cannot be excluded on the supine view. Signed: Marycruz Barillas MDReport Verified Date/Time: 09/19/2022 10:43:40 Reading Location: [address] Reading Room POCT-GLUCOSE [id number] 10:02:43 Test Item Value Reference Range Interpretation Comments POC-GLUCOSE METER 98 mg/dL 70-110 : TESTED A T [facility] 67[address] ([facility]) (test code = [place], 1538) 14006: Software Quality Tester/Techni zaire ID = [id number] for Tobi ins, Unique TACROLIMUS [id number] 09:50:56 Test Item Value Reference Range Interpretation Comments TACROLIMUS BLOOD 4.0 ng/mL 10.0-20.0 L Test perfor med on [place] (BEAKER) (test code Architec t Immunoassay = 657) system with Chemiluminescen t Microparticle I mmunoassay (CMIA) technolo gy. Software Quality Tester ID - ADMINHEPATIC FUNCTION [id number] 06:35:00 Test Item Value Reference Range Interpretation Comments TOTAL PROTEIN (BEAKER) 5.8 gm/dL 6.0-8.3 L Speci men slightly (test code = 770) hemolyzed ALBUMIN (BEAKER) (test 2.4 g/dL 3.5-5.0 L Speci men slightly code = 1145) hemolyzed BILIRUBIN TOTAL 1.8 mg/dL 0.2-1.2 H Specimen sli ghtly (BEAKER) (test code = hemoly zed 377) BILIRUBIN DIRECT 1.0 mg/dL 0.1-0.5 H Specimen sl ightly (BEAKER) (test code = hemoly zed 706) ALKALINE PHOSPHATASE 546 U/L 40-150 H (BEAKER) (test code = 346) AST (SGOT) (BEAKER) 34 U/L 5-34 Specimen slightly (test code = 353) hemolyzed ALT (SGPT) (BEAKER) 43 U/L 6-55 Specimen slightly (test code = 347) hemolyzed Software Quality Tester ID - MARIOGAMMA GLUTAMYL TRANSFERASE (GGT)2022-09-19 06:35:00 Test Item Value Reference Range Interpretation Comments GAMMA GLUTAMYL 182 U/L 9-64 H Specimen slig htly TRANSFERASE (BEAKER) hemolyz ed (test code = 364) Software Quality Tester ID - MARIOBASIC METABOLIC [id number] 06:34:59 Test Item Value Reference Range Interpretation Comments SODIUM (BEAKER) 138 meq/L 136-145 (test code = 381) POTASSIUM 4.3 meq/L 3.5-5.1 Specimen slight ly (BEAKER) (test hemolyzed code = 379) CHLORIDE (BEAKER) 108 meq/L 98-107 H (test code = 382) CO2 (BEAKER) 23 meq/L 22-29 (test code = 355) BLOOD UREA 7 mg/dL 7-21 NITROGEN (BEAKER) (test code = 354) CREATININE 0.61 mg/dL 0.57-1.25 Specimen slight ly (BEAKER) (test hemolyzed code = 358) GLUCOSE RANDOM 103 mg/dL 70-105 (BEAKER) (test code = 652) CALCIUM (BEAKER) 8.1 mg/dL 8.4-10.2 L (test code = 697) EGFR (BEAKER) 105 Interpretatio n of eGFR (test code = [...] not appl icable for dialysis patien ts Software Quality Tester ID - [id number] 06:34:58 Test Item Value Reference Range Interpretation Comments MAGNESIUM (BEAKER) 1.6 mg/dL 1.6-2.6 Specimen slightly (test code = 627) hemolyzed Software Quality Tester ID - [id number] 06:34:58 Test Item Value Reference Range Interpretation Comments PHOSPHORUS (BEAKER) 4.4 mg/dL 2.3-4.7 Specimen slightly (test code = 604) hemolyzed Software Quality Tester ID - MARIOPROTHROMBIN TIME/[id number] 06:07:57 Test Item Value Reference Range Interpretation Comments PROTIME (BEAKER) (test code = 14.5 seconds 11.9-14.2 H 759) INR (BEAKER) (test code = 370) 1.20 <=5.90 RECOMMENDED COUMADIN/WARFARIN INR THERAPY RANGESSTANDARD DOSE: 2.0 - 3.0 Includes: PROPHYLAXIS for venous thrombosis, systemic embolization; TREATMENT for venous thrombosis and/or pulmonary embolus.HIGH RISK: Target INR is 2.5-3.5 for patients with mechanical heart valves.CBC W/PLT COUNT & AUTO [id number] 05:59:10 Test Item Value Reference Range Interpretation Comments WHITE BLOOD CELL COUNT (BEAKER) 8.1 K/ L 3.5-10.5 (test code = 775) RED BLOOD CELL COUNT (BEAKER) 3.89 M/ L 4.63-6.08 L (test code = 761) HEMOGLOBIN (BEAKER) (test code = 9.2 GM/DL 13.7-17.5 L 410) HEMATOCRIT (BEAKER) (test code = 30.1 % 40.1-51.0 L 411) MEAN CORPUSCULAR VOLUME (BEAKER) 77 fL 79-92 L (test code = 753) MEAN CORPUSCULAR HEMOGLOBIN 23.7 pg 25.7-32.2 L (BEAKER) (test code = 751) MEAN CORPUSCULAR HEMOGLOBIN CONC 30.6 GM/DL 32.3-36.5 L (BEAKER) (test code = 752) RED CELL DISTRIBUTION WIDTH 19.9 % 11.6-14.4 H (BEAKER) (test code = 412) PLATELET COUNT (BEAKER) (test 161 K/CU MM 150-450 code = 756) MEAN PLATELET VOLUME (BEAKER) 9.6 fL 9.4-12.4 (test code = 754) NUCLEATED RED BLOOD CELLS 0 /100 WBC 0-0 (BEAKER) (test code = 413) NEUTROPHILS RELATIVE PERCENT 70 % (BEAKER) (test code = 429) LYMPHOCYTES RELATIVE PERCENT 16 % (BEAKER) (test code = 430) MONOCYTES RELATIVE PERCENT 9 % (BEAKER) (test code = 431) EOSINOPHILS RELATIVE PERCENT 2 % (BEAKER) (test code = 432) BASOPHILS RELATIVE PERCENT 1 % (BEAKER) (test code = 437) NEUTROPHILS ABSOLUTE COUNT 5.63 K/ L 1.78-5.38 H (BEAKER) (test code = 670) LYMPHOCYTES ABSOLUTE COUNT 1.31 K/ L 1.32-3.57 L (BEAKER) (test code = 414) MONOCYTES ABSOLUTE COUNT (BEAKER) 0.71 K/ L 0.30-0.82 (test code = 415) EOSINOPHILS ABSOLUTE COUNT 0.16 K/ L 0.04-0.54 (BEAKER) (test code = 416) BASOPHILS ABSOLUTE COUNT (BEAKER) 0.10 K/ L 0.01-0.08 H (test code = 417) IMMATURE GRANULOCYTES-RELATIVE 2.00 % 0.00-1.00 H PERCENT (BEAKER) (test code = 2801) U/S, ABDOMINAL, WITH [id number] 00:20:00REFERRING MD: CHERELLE SALVADOR Reason for exam:->s/p OLT assess vessels and liverShould this be performed at the bedside?->Yes [facility]EN CARDONA : 1955 Sex: MFINAL REPORT Ultrasound of the Abdomen and Doppler evaluation Clinical History: Liver transplant COMPARISON: September 05, 2022 Discussion: Sonographic evaluation of the abdomen is performed. In addition, color Doppler and spectral wave form analysis evaluations of the abdominal vasculature are performed. Liver: 21 cm in length at the right midclavicular line. Normal echogenicity. No lesion is identified by ultrasound. Main portal vein diameter 1.4 cm. Biliary tree: Common duct 6 mm. No biliary dilatation Gallbladder: Absent. There is a small locule of fluid in the gallbladder fossa, measuring 3.7 x 1.6 x 4.2 cm. Pancreas: Partially visualized, unremarkable. Ascites: None seen Spleen: 15.1cm in length. Kidneys: Right kidney 13.1 x 5.3 x 4.5 cm. Left kidney 13.3 x 5.9 x 5 cm. Normal cortical echogenicity. No mass. No shadowing calculus. No hydronephrosis. IVC/Aorta: Segments partially seen. Unremarkable Doppler: The peak systolic velocity of the main portal vein is 24.5 cm/sec, within normal limits. The main portal, right portal, and left portal veins demonstrate normal direction of flow, hepatopetal. The splenic vein is visualized at the portal venous confluence and demonstrate normal direction of flow, hepatopetal. The proper hepatic, right hepatic, and left hepatic arteries demonstrate normal arterial wave forms and resistive indices. The proper hepatic artery demonstrates normalacceleration time, acceleration index, and systolic upstroke. Segments of the right hepatic, middle hepatic, and left hepatic veins visualized demonstrate flow and phasic venous waveforms. Impression: Unremarkable sonographic and Doppler evaluation of the transplant liver. Persistent small fluid collection/seroma in the gallbladder fossa. Splenomegaly. Signed: Radha Royalort Verified Date/Time: 09/19/2022 00:20:19 URINALYSIS W/ REFLEX URINE [id number] 22:25:49 Test Item Value Reference Range Interpretation Comments COLOR (BEAKER) (test code = 470) Yellow CLARITY (BEAKER) (test code = 469) Clear SPECIFIC GRAVITY UA (BEAKER) (test 1.022 1.001-1.035 code = 468) PH UA (BEAKER) (test code = 467) 7.5 5.0-8.0 PROTEIN UA (BEAKER) (test code = 10 mg/dL Negative A 464) GLUCOSE UA (BEAKER) (test code = Negative Negative 365) KETONES UA (BEAKER) (test code = Negative Negative 371) BILIRUBIN UA (BEAKER) (test code = Negative Negative 462) BLOOD UA (BEAKER) (test code = Negative Negative 461) NITRITE UA (BEAKER) (test code = Negative Negative 465) LEUKOCYTE ESTERASE UA (BEAKER) Negative Negative (test code = 466) UROBILINOGEN UA (BEAKER) (test 0.2 0.2-1.0 code = 463) RBC UA (BEAKER) (test code = 519) 2 /HPF WBC UA (BEAKER) (test code = 520) 2 /HPF BACTERIA (BEAKER) (test code = Occasional 517) SQUAMOUS EPITHELIAL (BEAKER) (test 1 /HPF code = 516) SOURCE(BEAKER) (test code = 2795) Software Quality Tester ID - [auto]Software Quality Tester ID - techSARS-COV2/RT-PCR ([facility]) 2022-09-18 21:37:37 Test Item Value Reference Range Interpretation Comments SARS-COV2/RT-PCR Negative Negative The SARS-Co V-2 target (test code = nucleic acids a re not [id number]) detected in thi s specimen. Negative result s do not preclude SARS-C oV-2 infection and s hould not be used as the jese e basis for patient managem ent decisions. Nega tive results must be combine d with clinical observ ations, patient history , and epidemiological information. A false negativ e result may occur if a spec imen is improperly cayla ected, transported or handled. This SARS CoV-2 test is a rapid, real-time RT-PC R test intended for th e qualitative detection of nu cleic acid from SARS-CoV-2 in a nasopharyngeal swab specimen collected from individuals suspected of CO VID-19 by their healthcar e provider. This test has been authorized by FDA under an EUA for use by authorized laboratories. This test is only authorized for the duration of the declaration that circumstances exist justifying the authorization of emergency use of in vitro diagnostic tests for detection and/or diagnosis of COVID-19 under Section 564(b)(1) of the Federal Food, Drug and Cosmetic Act, 21 U.S.C. 360bbb-3(b)(1), unless the authorization is terminated or revoked sooner. Fact Sheet for Healthcare Providers: https://www.[employer] m/Documents/Xpert%20Xpress%20SARS%20CoV-2/Fact%20Sheets/302-1670%68BUYL-VLN-6%20 HEALTHCARE%20PROVIDERS%20FACT%20SHEET.pdf Fact Sheet for Healthcare Patients: https://www.[employer]/Documents/Xpert%20Xp ress%20SARS%20CoV-2/Fact%20Sheets/302-3801%27ZDZF-QHA-2%20PATIENT%20FACT%20SHEET .pdfPOCT-GLUCOSE [id number] 21:14:09 Test Item Value Reference Range Interpretation Comments POC-GLUCOSE METER 116 mg/dL 70-110 H : Notified RN/MD: (BEAKER) (test code = TESTED AT [facility] 3926 0135) [facility], [address]: Software Quality Tester/Techni zaire ID = [id number] for Juan Diego Bertrand BASIC METABOLIC [id number] 20:36:47 Test Item Value Reference Range Interpretation Comments SODIUM (BEAKER) 135 meq/L 136-145 L (test code = 381) POTASSIUM 4.0 meq/L 3.5-5.1 (BEAKER) (test code = 379) CHLORIDE (BEAKER) 105 meq/L 98-107 (test code = 382) CO2 (BEAKER) 24 meq/L 22-29 (test code = 355) BLOOD UREA 7 mg/dL 7-21 NITROGEN (BEAKER) (test code = 354) CREATININE 0.71 mg/dL 0.57-1.25 (BEAKER) (test code = 358) GLUCOSE RANDOM 185 mg/dL 70-105 H (BEAKER) (test code = [...] not appl icable for dialysis patien ts Software Quality Tester ID - BETTE [id number] 20:28:22 Test Item Value Reference Range Interpretation Comments PHOSPHORUS (BEAKER) (test code = 2.1 mg/dL 2.3-4.7 L 604) Software Quality Tester ID - BETTE GHEPATIC FUNCTION [id number] 20:28:22 Test Item Value Reference Range Interpretation Comments TOTAL PROTEIN (BEAKER) (test code = 6.0 gm/dL 6.0-8.3 770) ALBUMIN (BEAKER) (test code = 1145) 2.5 g/dL 3.5-5.0 L BILIRUBIN TOTAL (BEAKER) (test code 2.1 mg/dL 0.2-1.2 H = 377) BILIRUBIN DIRECT (BEAKER) (test 1.2 mg/dL 0.1-0.5 H code = 706) ALKALINE PHOSPHATASE (BEAKER) (test 596 U/L 40-150 H code = 346) AST (SGOT) (BEAKER) (test code = 37 U/L 5-34 H 353) ALT (SGPT) (BEAKER) (test code = 51 U/L 6-55 347) Software Quality Tester ID - BETTE GGAMMA GLUTAMYL TRANSFERASE (GGT)2022-09-18 20:28:22 Test Item Value Reference Range Interpretation Comments GAMMA GLUTAMYL TRANSFERASE (BEAKER) 204 U/L 9-64 H (test code = 364) Software Quality Tester ID - BETTE [id number] 20:28:21 Test Item Value Reference Range Interpretation Comments MAGNESIUM (BEAKER) (test code = 1.5 mg/dL 1.6-2.6 L 627) Software Quality Tester ID - BETTE GPROTHROMBIN [id number] 20:10:22 Test Item Value Reference Range Interpretation Comments PROTIME (BEAKER) (test code = 14.4 seconds 11.9-14.2 H 759) INR (BEAKER) (test code = 370) 1.14 <=5.90 RECOMMENDED COUMADIN/WARFARIN INR THERAPY RANGESSTANDARD DOSE: 2.0 - 3.0 Includes: PROPHYLAXIS for venous thrombosis, systemic embolization; TREATMENT for venous thrombosis and/or pulmonary embolus.HIGH RISK: Target INR is 2.5-3.5 for patients with mechanical heart valves.CBC W/PLT COUNT & AUTO [id number] 19:57:12 Test Item Value Reference Range Interpretation Comments WHITE BLOOD CELL COUNT (BEAKER) 8.4 K/ L 3.5-10.5 (test code = 775) RED BLOOD CELL COUNT (BEAKER) 4.07 M/ L 4.63-6.08 L (test code = 761) HEMOGLOBIN (BEAKER) (test code = 9.6 GM/DL 13.7-17.5 L 410) HEMATOCRIT (BEAKER) (test code = 31.7 % 40.1-51.0 L 411) MEAN CORPUSCULAR VOLUME (BEAKER) 78 fL 79-92 L (test code = 753) MEAN CORPUSCULAR HEMOGLOBIN 23.6 pg 25.7-32.2 L (BEAKER) (test code = 751) MEAN CORPUSCULAR HEMOGLOBIN CONC 30.3 GM/DL 32.3-36.5 L (BEAKER) (test code = 752) RED CELL DISTRIBUTION WIDTH 19.8 % 11.6-14.4 H (BEAKER) (test code = 412) PLATELET COUNT (BEAKER) (test 176 K/CU MM 150-450 code = 756) MEAN PLATELET VOLUME (BEAKER) 9.5 fL 9.4-12.4 (test code = 754) NUCLEATED RED BLOOD CELLS 0 /100 WBC 0-0 (BEAKER) (test code = 413) NEUTROPHILS RELATIVE PERCENT 69 % (BEAKER) (test code = 429) LYMPHOCYTES RELATIVE PERCENT 16 % (BEAKER) (test code = 430) MONOCYTES RELATIVE PERCENT 10 % (BEAKER) (test code = 431) EOSINOPHILS RELATIVE PERCENT 3 % (BEAKER) (test code = 432) BASOPHILS RELATIVE PERCENT 1 % (BEAKER) (test code = 437) NEUTROPHILS ABSOLUTE COUNT 5.77 K/ L 1.78-5.38 H (BEAKER) (test code = 670) LYMPHOCYTES ABSOLUTE COUNT 1.35 K/ L 1.32-3.57 (BEAKER) (test code = 414) MONOCYTES ABSOLUTE COUNT (BEAKER) 0.81 K/ L 0.30-0.82 (test code = 415) EOSINOPHILS ABSOLUTE COUNT 0.25 K/ L 0.04-0.54 (BEAKER) (test code = 416) BASOPHILS ABSOLUTE COUNT (BEAKER) 0.08 K/ L 0.01-0.08 (test code = 417) IMMATURE GRANULOCYTES-RELATIVE 1.70 % 0.00-1.00 H PERCENT (BEAKER) (test code = 2801) POCT-GLUCOSE [id number] 17:55:56 Test Item Value Reference Range Interpretation Comments POC-GLUCOSE METER 197 mg/dL 70-110 H : TESTED A T [facility] 6720 (BEAKER) (test code = [place], 1538) [address]: Software Quality Tester/Techni zaire ID = [id number] for Sejal Lux TACROLIMUS [id number] 11:28:47 Test Item Value Reference Range Interpretation Comments TACROLIMUS BLOOD 4.0 ng/mL 10.0-20.0 L Test perfor med on Calhoun (BEAKER) (test code Architec t Immunoassay = 657) system with Chemiluminescen t Microparticle I mmunoassay (CMIA) technolo gy. Software Quality Tester ID - [id number] 10:30:21 Test Item Value Reference Range Interpretation Comments MAGNESIUM (BEAKER) (test code = 1.3 mg/dL 1.6-2.6 L 627) Software Quality Tester ID - [id number] 10:30:21 Test Item Value Reference Range Interpretation Comments PHOSPHORUS (BEAKER) (test code = 4.0 mg/dL 2.3-4.7 604) Software Quality Tester ID - JUDYBILIRUBIN, [id number] 10:30:21 Test Item Value Reference Range Interpretation Comments BILIRUBIN DIRECT (BEAKER) (test 2.0 mg/dL 0.1-0.5 H code = 706) Software Quality Tester ID - JUDYCOMPREHENSIVE METABOLIC [id number] 10:30:20 Test Item Value Reference Range Interpretation Comments TOTAL PROTEIN 6.0 gm/dL 6.0-8.3 (BEAKER) (test code = 770) ALBUMIN (BEAKER) 2.5 g/dL 3.5-5.0 L (test code = 1145) ALKALINE 572 U/L 40-150 H PHOSPHATASE (BEAKER) (test code = 346) BILIRUBIN TOTAL 3.1 mg/dL 0.2-1.2 H (BEAKER) (test code = 377) SODIUM (BEAKER) 135 meq/L 136-145 L (test code = 381) POTASSIUM (BEAKER) 4.2 meq/L 3.5-5.1 (test code = 379) CHLORIDE (BEAKER) 99 meq/L 98-107 (test code = 382) CO2 (BEAKER) (test 26 meq/L 22-29 code = 355) BLOOD UREA 9 mg/dL 7-21 NITROGEN (BEAKER) (test code = 354) CREATININE 0.68 mg/dL 0.57-1.25 (BEAKER) (test code = 358) GLUCOSE RANDOM 146 mg/dL 70-105 H (BEAKER) (test code = 652) CALCIUM (BEAKER) 8.1 mg/dL 8.4-10.2 L (test code = 697) AST (SGOT) 50 U/L 5-34 H (BEAKER) (test code = 353) ALT (SGPT) 43 U/L 6-55 (BEAKER) (test code = 347) EGFR (BEAKER) 103 Interpretatio n of eGFR (test code = 1092) mL/min/1.[address] age Description sq m Result G1 Shahnaz l or [...] not appl icable for dialysis patien ts Software Quality Tester ID - JUDYCBC W/PLT COUNT & AUTO [id number] 10:16:35 Test Item Value Reference Range Interpretation Comments WHITE BLOOD CELL COUNT (BEAKER) 8.3 K/ L 3.5-10.5 (test code = 775) RED BLOOD CELL COUNT (BEAKER) 4.09 M/ L 4.63-6.08 L (test code = 761) HEMOGLOBIN (BEAKER) (test code = 9.9 GM/DL 13.7-17.5 L 410) HEMATOCRIT (BEAKER) (test code = 33.1 % 40.1-51.0 L 411) MEAN CORPUSCULAR VOLUME (BEAKER) 81 fL 79-92 (test code = 753) MEAN CORPUSCULAR HEMOGLOBIN 24.2 pg 25.7-32.2 L (BEAKER) (test code = 751) MEAN CORPUSCULAR HEMOGLOBIN CONC 29.9 GM/DL 32.3-36.5 L (BEAKER) (test code = 752) RED CELL DISTRIBUTION WIDTH 19.9 % 11.6-14.4 H (BEAKER) (test code = 412) PLATELET COUNT (BEAKER) (test 199 K/CU MM 150-450 code = 756) MEAN PLATELET VOLUME (BEAKER) 9.9 fL 9.4-12.4 (test code = 754) NUCLEATED RED BLOOD CELLS 0 /100 WBC 0-0 (BEAKER) (test code = 413) NEUTROPHILS RELATIVE PERCENT 62 % (BEAKER) (test code = 429) LYMPHOCYTES RELATIVE PERCENT 13 % (BEAKER) (test code = 430) MONOCYTES RELATIVE PERCENT 13 % (BEAKER) (test code = 431) EOSINOPHILS RELATIVE PERCENT 9 % (BEAKER) (test code = 432) BASOPHILS RELATIVE PERCENT 1 % (BEAKER) (test code = 437) NEUTROPHILS ABSOLUTE COUNT 5.11 K/ L 1.78-5.38 (BEAKER) (test code = 670) LYMPHOCYTES ABSOLUTE COUNT 1.08 K/ L 1.32-3.57 L (BEAKER) (test code = 414) MONOCYTES ABSOLUTE COUNT (BEAKER) 1.11 K/ L 0.30-0.82 H (test code = 415) EOSINOPHILS ABSOLUTE COUNT 0.78 K/ L 0.04-0.54 H (BEAKER) (test code = 416) BASOPHILS ABSOLUTE COUNT (BEAKER) 0.12 K/ L 0.01-0.08 H (test code = 417) IMMATURE GRANULOCYTES-RELATIVE 1.40 % 0.00-1.00 H PERCENT (BEAKER) (test code = 2801) HIV-1 PCR, [id number] 16:00:29 Test Item Value Reference Range Interpretation Comments HIV-1 RESULT HIV RNA not detected HIV RNA not detected COMPONENT (BEAKER) (test code = 2703) MISCELLANEOUS LAB [id number] 14:40:47 Test Item Value Reference Range Interpretation Comments SCAN RESULT (test see scanned report See scanned report. code = 7984513) HEPATITIS B PCR, [id number] 13:39:52 Test Item Value Reference Range Interpretation Comments HBV RESULT COMPONENT HBV DNA not detected HBV DNA not detected (BEAKER) (test code = 2701) HEPATITIS C PCR, [id number] 09:14:14 Test Item Value Reference Range Interpretation Comments HCV RESULT COMPONENT HCV RNA not detected HCV RNA not detected (BEAKER) (test code = 2699) TACROLIMUS [id number] 13:03:22 Test Item Value Reference Range Interpretation Comments TACROLIMUS BLOOD 8.0 ng/mL 10.0-20.0 L Test perfor med on Calhoun (BEAKER) (test code Architec t Immunoassay = 657) system with Chemiluminescen t Microparticle I mmunoassay (CMIA) technolo gy. Software Quality Tester ID - [id number] 11:56:02 Test Item Value Reference Range Interpretation Comments PHOSPHORUS (BEAKER) 3.4 mg/dL 2.3-4.7 Specimen slightly (test code = 604) hemolyzed Software Quality Tester ID - ADMINCOMPREHENSIVE METABOLIC [id number] 11:56:02 Test Item Value Reference Range Interpretation Comments TOTAL PROTEIN 6.4 gm/dL 6.0-8.3 Specimen sligh tly (BEAKER) (test hemolyzed code = 770) ALBUMIN (BEAKER) 2.6 g/dL 3.5-5.0 L Specimen sl ightly (test code = 1145) hemolyzed ALKALINE 546 U/L 40-150 H PHOSPHATASE (BEAKER) (test code = 346) BILIRUBIN TOTAL 2.5 mg/dL 0.2-1.2 H Specimen sli ghtly (BEAKER) (test hemolyzed code = 377) SODIUM (BEAKER) 132 meq/L 136-145 L (test code = 381) POTASSIUM (BEAKER) 4.5 meq/L 3.5-5.1 Specimen slightly (test code = 379) hemolyzed CHLORIDE (BEAKER) 100 meq/L 98-107 (test code = 382) CO2 (BEAKER) (test 24 meq/L 22-29 code = 355) BLOOD UREA 8 mg/dL 7-21 NITROGEN (BEAKER) (test code = 354) CREATININE 0.72 mg/dL 0.57-1.25 Specimen slight ly (BEAKER) (test hemolyzed code = 358) GLUCOSE RANDOM 155 mg/dL 70-105 H (BEAKER) (test code = 652) CALCIUM (BEAKER) 8.5 mg/dL 8.4-10.2 (test code = 697) AST (SGOT) 35 U/L 5-34 H Specimen slight ly (BEAKER) (test hemolyzed code = 353) ALT (SGPT) 34 U/L 6-55 Specimen slight ly (BEAKER) (test hemolyzed code = 347) EGFR (BEAKER) 101 Interpretati on of eGFR (test code = 1092) mL/min/1.[address] age Description sq m Result G1 Shahnaz l or [...] not appl icable for dialysis patien ts Software Quality Tester ID - ADMINSpecimen slightly ictericBILIRUBIN, [id number] 11:56:02 Test Item Value Reference Range Interpretation Comments BILIRUBIN DIRECT 1.5 mg/dL 0.1-0.5 H Specimen sl ightly (BEAKER) (test code = hemoly zed 706) Software Quality Tester ID - [id number] 11:56:01 Test Item Value Reference Range Interpretation Comments MAGNESIUM (BEAKER) 1.2 mg/dL 1.6-2.6 L Specimen slightly (test code = 627) hemolyzed Software Quality Tester ID - ADMINCBC W/PLT COUNT & AUTO [id number] 11:44:09 Test Item Value Reference Range Interpretation Comments WHITE BLOOD CELL COUNT (BEAKER) 8.3 K/ L 3.5-10.5 (test code = 775) RED BLOOD CELL COUNT (BEAKER) 4.30 M/ L 4.63-6.08 L (test code = 761) HEMOGLOBIN (BEAKER) (test code = 10.4 GM/DL 13.7-17.5 L 410) HEMATOCRIT (BEAKER) (test code = 34.7 % 40.1-51.0 L 411) MEAN CORPUSCULAR VOLUME (BEAKER) 81 fL 79-92 (test code = 753) MEAN CORPUSCULAR HEMOGLOBIN 24.2 pg 25.7-32.2 L (BEAKER) (test code = 751) MEAN CORPUSCULAR HEMOGLOBIN CONC 30.0 GM/DL 32.3-36.5 L (BEAKER) (test code = 752) RED CELL DISTRIBUTION WIDTH 19.9 % 11.6-14.4 H (BEAKER) (test code = 412) PLATELET COUNT (BEAKER) (test 199 K/CU MM 150-450 code = 756) MEAN PLATELET VOLUME (BEAKER) 10.2 fL 9.4-12.4 (test code = 754) NUCLEATED RED BLOOD CELLS 0 /100 WBC 0-0 (BEAKER) (test code = 413) NEUTROPHILS RELATIVE PERCENT 68 % (BEAKER) (test code = 429) LYMPHOCYTES RELATIVE PERCENT 11 % (BEAKER) (test code = 430) MONOCYTES RELATIVE PERCENT 10 % (BEAKER) (test code = 431) EOSINOPHILS RELATIVE PERCENT 7 % (BEAKER) (test code = 432) BASOPHILS RELATIVE PERCENT 2 % (BEAKER) (test code = 437) NEUTROPHILS ABSOLUTE COUNT 5.64 K/ L 1.78-5.38 H (BEAKER) (test code = 670) LYMPHOCYTES ABSOLUTE COUNT 0.88 K/ L 1.32-3.57 L (BEAKER) (test code = 414) MONOCYTES ABSOLUTE COUNT (BEAKER) 0.86 K/ L 0.30-0.82 H (test code = 415) EOSINOPHILS ABSOLUTE COUNT 0.57 K/ L 0.04-0.54 H (BEAKER) (test code = 416) BASOPHILS ABSOLUTE COUNT (BEAKER) 0.15 K/ L 0.01-0.08 H (test code = 417) IMMATURE GRANULOCYTES-RELATIVE 2.60 % 0.00-1.00 H PERCENT (BEAKER) (test code = 2801) Fungus culture + [id number] 18:28:18 Test Item Value Reference Range Interpretation Comments Result (test code = No fungus isolated in 6463-4) 28 days Fungus Smear (test No fungi seen code = 1406) [facility] [id number] 18:28:18 Test Item Value Reference Range Interpretation Comments CULTURE (BEAKER) (test No fungus isolated in code = 1095) 28 days FUNGUS SMEAR (BEAKER) No fungi seen (test code = 1406) TACROLIMUS [id number] 08:49:30 Test Item Value Reference Range Interpretation Comments TACROLIMUS BLOOD 13.7 ng/mL 10.0-20.0 Test perfor med on Calhoun (BEAKER) (test code Architec t Immunoassay = 657) system with Chemiluminescen t Microparticle Immunoassay (CM IA) technology. Software Quality Tester ID - ADMINPOC-Glucose [id number] 07:42:08 Test Item Value Reference Range Interpretation Comments POC-Glucose Meter (test 98 mg/dL 70-110 : TE STED AT [facility] code = 1538) [address] [facility], [address]: Software Quality Tester/Techni zaire ID = [id number] for CORY [place] Lab Interpretation (test Normal code = 91353-5) [facility] [id number] 07:42:08 Test Item Value Reference Range Interpretation Comments POC-GLUCOSE METER 98 mg/dL 70-110 : TESTED A T [facility] 6720 (BEAKER) (test code = [facility], 1538) [address]: Software Quality Tester/Techni zaire ID = [id number] for CORY [place] HEPATIC FUNCTION [id number] 05:59:26 Test Item Value Reference Range Interpretation Comments TOTAL PROTEIN (BEAKER) (test code = 5.8 gm/dL 6.0-8.3 L 770) ALBUMIN (BEAKER) (test code = 1145) 2.5 g/dL 3.5-5.0 L BILIRUBIN TOTAL (BEAKER) (test code 1.1 mg/dL 0.2-1.2 = 377) BILIRUBIN DIRECT (BEAKER) (test 0.6 mg/dL 0.1-0.5 H code = 706) ALKALINE PHOSPHATASE (BEAKER) (test 534 U/L 40-150 H code = 346) AST (SGOT) (BEAKER) (test code = 21 U/L 5-34 353) ALT (SGPT) (BEAKER) (test code = 35 U/L 6-55 347) Software Quality Tester ID - [id number] 05:59:25 Test Item Value Reference Range Interpretation Comments MAGNESIUM (BEAKER) (test code = 1.4 mg/dL 1.6-2.6 L 627) Software Quality Tester ID - [id number] 05:59:25 Test Item Value Reference Range Interpretation Comments PHOSPHORUS (BEAKER) (test code = 2.9 mg/dL 2.3-4.7 604) Software Quality Tester ID - MARCOBASIC METABOLIC [id number] 05:59:24 Test Item Value Reference Range Interpretation Comments SODIUM (BEAKER) 137 meq/L 136-145 (test code = 381) POTASSIUM 4.6 meq/L 3.5-5.1 (BEAKER) (test code = 379) CHLORIDE (BEAKER) 106 meq/L 98-107 (test code = 382) CO2 (BEAKER) 25 meq/L 22-29 (test code = 355) BLOOD UREA 7 mg/dL 7-21 NITROGEN (BEAKER) (test code = 354) CREATININE 0.63 mg/dL 0.57-1.25 (BEAKER) (test code = 358) GLUCOSE RANDOM 101 mg/dL 70-105 (BEAKER) (test code = 652) CALCIUM (BEAKER) 8.3 mg/dL 8.4-10.2 L (test code = 697) EGFR (BEAKER) 105 Interpretatio n of eGFR (test code = [...] not appl icable for dialysis patien ts Software Quality Tester ID - [id number] 05:41:21 Test Item Value Reference Range Interpretation Comments PARTIAL THROMBOPLASTIN TIME 26.0 seconds 22.5-36.0 (BEAKER) (test code = 760) PROTHROMBIN [id number] 05:41:00 Test Item Value Reference Range Interpretation Comments PROTIME (BEAKER) (test code = 14.9 seconds 11.9-14.2 H 759) INR (BEAKER) (test code = 370) 1.24 <=5.90 RECOMMENDED COUMADIN/WARFARIN INR THERAPY RANGESSTANDARD DOSE: 2.0 - 3.0 Includes: PROPHYLAXIS for venous thrombosis, systemic embolization; TREATMENT for venous thrombosis and/or pulmonary embolus.HIGH RISK: Target INR is 2.5-3.5 for patients with mechanical heart valves.CBC W/PLT COUNT & AUTO [id number] 05:32:55 Test Item Value Reference Range Interpretation Comments WHITE BLOOD CELL COUNT (BEAKER) 9.1 K/ L 3.5-10.5 (test code = 775) RED BLOOD CELL COUNT (BEAKER) 4.40 M/ L 4.63-6.08 L (test code = 761) HEMOGLOBIN (BEAKER) (test code = 10.7 GM/DL 13.7-17.5 L 410) HEMATOCRIT (BEAKER) (test code = 35.9 % 40.1-51.0 L 411) MEAN CORPUSCULAR VOLUME (BEAKER) 82 fL 79-92 (test code = 753) MEAN CORPUSCULAR HEMOGLOBIN 24.3 pg 25.7-32.2 L (BEAKER) (test code = 751) MEAN CORPUSCULAR HEMOGLOBIN CONC 29.8 GM/DL 32.3-36.5 L (BEAKER) (test code = 752) RED CELL DISTRIBUTION WIDTH 18.7 % 11.6-14.4 H (BEAKER) (test code = 412) PLATELET COUNT (BEAKER) (test 214 K/CU MM 150-450 code = 756) MEAN PLATELET VOLUME (BEAKER) 10.0 fL 9.4-12.4 (test code = 754) NUCLEATED RED BLOOD CELLS 0 /100 WBC 0-0 (BEAKER) (test code = 413) NEUTROPHILS RELATIVE PERCENT 55 % (BEAKER) (test code = 429) LYMPHOCYTES RELATIVE PERCENT 22 % (BEAKER) (test code = 430) MONOCYTES RELATIVE PERCENT 10 % (BEAKER) (test code = 431) EOSINOPHILS RELATIVE PERCENT 9 % (BEAKER) (test code = 432) BASOPHILS RELATIVE PERCENT 1 % (BEAKER) (test code = 437) NEUTROPHILS ABSOLUTE COUNT 5.04 K/ L 1.78-5.38 (BEAKER) (test code = 670) LYMPHOCYTES ABSOLUTE COUNT 1.96 K/ L 1.32-3.57 (BEAKER) (test code = 414) MONOCYTES ABSOLUTE COUNT (BEAKER) 0.88 K/ L 0.30-0.82 H (test code = 415) EOSINOPHILS ABSOLUTE COUNT 0.82 K/ L 0.04-0.54 H (BEAKER) (test code = 416) BASOPHILS ABSOLUTE COUNT (AKER) 0.12 K/ L 0.01-0.08 H (test code = 417) IMMATURE GRANULOCYTES-RELATIVE 3.00 % 0.00-1.00 H PERCENT (BEAKER) (test code = 2801) BLOOD [id number] 00:00:46 Test Item Value Reference Range Interpretation Comments CULTURE (BEAKER) (test No growth in 5 days code = 1095) BLOOD [id number] 00:00:45 Test Item Value Reference Range Interpretation Comments CULTURE (BEAKER) (test No growth in 5 days code = 1095) POCT-GLUCOSE [id number] 20:35:34 Test Item Value Reference Range Interpretation Comments POC-GLUCOSE METER 159 mg/dL 70-110 H : TESTED A T [facility] ([facility]) (test code = [place], 1538) [address]: Software Quality Tester/Techni zaire ID = [id number] for Ac ord [place] POCT-GLUCOSE [id number] 16:24:56 Test Item Value Reference Range Interpretation Comments POC-GLUCOSE METER 368 mg/dL 70-110 H : TESTED A T [facility] [address] ([facility]) (test code = [place], 1538) [address]88: Software Quality Tester/Techni zaire ID = [id number] for KIRK GREENE, MENDEZ POCT-GLUCOSE [id number] 11:16:20 Test Item Value Reference Range Interpretation Comments POC-GLUCOSE METER 236 mg/dL 70-110 H : TESTED A T [facility] [address] ([facility]) (test code = [place], 1538) [address]: Software Quality Tester/Techni zaire ID = [id number] for KE KEOCHA, MENDEZ TACROLIMUS [id number] 10:13:17 Test Item Value Reference Range Interpretation Comments TACROLIMUS BLOOD 11.9 ng/mL 10.0-20.0 Test perfor med on [place] (BEAKER) (test code Architec t Immunoassay = 657) system with Chemiluminescen t Microparticle Immunoassay (CM IA) technology. Software Quality Tester ID - ADMINPOCT-GLUCOSE [id number] 08:30:29 Test Item Value Reference Range Interpretation Comments POC-GLUCOSE METER 143 mg/dL 70-110 H : [facility] (BEAKER[facility] (test code = [place], 1538) [address]: Software Quality Tester/Techni zaire ID = [id number] for MENDEZ [place]ONGO HEPATIC FUNCTION [id number] 06:10:02 Test Item Value Reference Range Interpretation Comments TOTAL PROTEIN (BEAKER) (test code = 5.3 gm/dL 6.0-8.3 L 770) ALBUMIN (BEAKER) (test code = 1145) 2.4 g/dL 3.5-5.0 L BILIRUBIN TOTAL (BEAKER) (test code 1.1 mg/dL 0.2-1.2 = 377) BILIRUBIN DIRECT (BEAKER) (test 0.6 mg/dL 0.1-0.5 H code = 706) ALKALINE PHOSPHATASE (BEAKER) (test 476 U/L 40-150 H code = 346) AST (SGOT) (BEAKER) (test code = 20 U/L 5-34 353) ALT (SGPT) (BEAKER) (test code = 33 U/L 6-55 347) Software Quality Tester ID - MMGAMMA GLUTAMYL TRANSFERASE ([id number] 06:10:02 Test Item Value Reference Range Interpretation Comments GAMMA GLUTAMYL TRANSFERASE (BEAKER) 149 U/L 9-64 H (test code = 364) Software Quality Tester ID - [id number] 06:10:01 Test Item Value Reference Range Interpretation Comments MAGNESIUM (BEAKER) (test code = 1.6 mg/dL 1.6-2.6 627) Software Quality Tester ID - [id number] 06:10:01 Test Item Value Reference Range Interpretation Comments PHOSPHORUS (BEAKER) (test code = 2.9 mg/dL 2.3-4.7 604) Software Quality Tester ID - MMBASIC METABOLIC [id number] 06:10:00 Test Item Value Reference Range Interpretation Comments SODIUM (BEAKER) 138 meq/L 136-145 (test code = 381) POTASSIUM 4.5 meq/L 3.5-5.1 (BEAKER) (test code = 379) CHLORIDE (BEAKER) 107 meq/L 98-107 (test code = 382) CO2 (BEAKER) 24 meq/L 22-29 (test code = 355) BLOOD UREA 7 mg/dL 7-21 NITROGEN (BEAKER) (test code = 354) CREATININE 0.64 mg/dL 0.57-1.25 (BEAKER) (test code = 358) GLUCOSE RANDOM 87 mg/dL 70-105 (BEAKER) (test code = 652) CALCIUM (BEAKER) 8.0 mg/dL 8.4-10.2 L (test code = 697) EGFR (BEAKER) 104 Interpretatio n of eGFR (test code = [...] not appl icable for dialysis patien ts Software Quality Tester ID - [id number] 06:00:55 Test Item Value Reference Range Interpretation Comments PARTIAL THROMBOPLASTIN TIME 26.0 seconds 22.5-36.0 (BEAKER) (test code = 760) PROTHROMBIN [id number] 06:00:13 Test Item Value Reference Range Interpretation Comments PROTIME (BEAKER) (test code = 14.6 seconds 11.9-14.2 H 759) INR (BEAKER) (test code = 370) 1.16 <=5.90 RECOMMENDED COUMADIN/WARFARIN INR THERAPY RANGESSTANDARD DOSE: 2.0 - 3.0 Includes: PROPHYLAXIS for venous thrombosis, systemic embolization; TREATMENT for venous thrombosis and/or pulmonary embolus.HIGH RISK: Target INR is 2.5-3.5 for patients with mechanical heart valves.CBC W/PLT COUNT & AUTO [id number] 05:52:36 Test Item Value Reference Range Interpretation Comments WHITE BLOOD CELL COUNT (BEAKER) 7.7 K/ L 3.5-10.5 (test code = 775) RED BLOOD CELL COUNT (BEAKER) 3.78 M/ L 4.63-6.08 L (test code = 761) HEMOGLOBIN (BEAKER) (test code = 9.3 GM/DL 13.7-17.5 L 410) HEMATOCRIT (BEAKER) (test code = 31.6 % 40.1-51.0 L 411) MEAN CORPUSCULAR VOLUME (BEAKER) 84 fL 79-92 (test code = 753) MEAN CORPUSCULAR HEMOGLOBIN 24.6 pg 25.7-32.2 L (BEAKER) (test code = 751) MEAN CORPUSCULAR HEMOGLOBIN CONC 29.4 GM/DL 32.3-36.5 L (BEAKER) (test code = 752) RED CELL DISTRIBUTION WIDTH 19.3 % 11.6-14.4 H (BEAKER) (test code = 412) PLATELET COUNT (BEAKER) (test 153 K/CU MM 150-450 code = 756) MEAN PLATELET VOLUME (BEAKER) 9.1 fL 9.4-12.4 L (test code = 754) NUCLEATED RED BLOOD CELLS 0 /100 WBC 0-0 (BEAKER) (test code = 413) NEUTROPHILS RELATIVE PERCENT 54 % (BEAKER) (test code = 429) LYMPHOCYTES RELATIVE PERCENT 22 % (BEAKER) (test code = 430) MONOCYTES RELATIVE PERCENT 10 % (BEAKER) (test code = 431) EOSINOPHILS RELATIVE PERCENT 8 % (BEAKER) (test code = 432) BASOPHILS RELATIVE PERCENT 2 % (BEAKER) (test code = 437) NEUTROPHILS ABSOLUTE COUNT 4.15 K/ L 1.78-5.38 (BEAKER) (test code = 670) LYMPHOCYTES ABSOLUTE COUNT 1.72 K/ L 1.32-3.57 (BEAKER) (test code = 414) MONOCYTES ABSOLUTE COUNT (BEAKER) 0.74 K/ L 0.30-0.82 (test code = 415) EOSINOPHILS ABSOLUTE COUNT 0.63 K/ L 0.04-0.54 H (BEAKER) (test code = 416) BASOPHILS ABSOLUTE COUNT (BEAKER) 0.14 K/ L 0.01-0.08 H (test code = 417) IMMATURE GRANULOCYTES-RELATIVE 3.90 % 0.00-1.00 H PERCENT (BEAKER) (test code = 2801) POCT-GLUCOSE [id number] 22:14:31 Test Item Value Reference Range Interpretation Comments POC-GLUCOSE METER 244 mg/dL 70-110 H : TESTED A T [facility] ([facility]) (test code = [place], 1538) [address]: Software Quality Tester/Techni zaire ID = [id number] for Kendra Olguin POCT-GLUCOSE [id number] 17:32:55 Test Item Value Reference Range Interpretation Comments POC-GLUCOSE METER 321 mg/dL 70-110 H : TESTED A T [facility] ([facility]) (test code = [place], 1538) [address]: Software Quality Tester/Techni zaire ID = [id number] for Nadia Ocampo POCT-GLUCOSE [id number] 12:35:30 Test Item Value Reference Range Interpretation Comments POC-GLUCOSE METER 156 mg/dL 70-110 H : TESTED A T [facility] ([facility]) (test code = [place], 1538) [address]98[address]: Software Quality Tester/Techni zaire ID = [id number] for CHRISTI OG CHRISTINE [place], [id number] 11:55:00REFERRING MD: CHERELLE SALVADOR Abnormal imaging Reason for exam:->abnormal lft [facility] KALEN CARDONA : 1955 Sex: MAn imaging unit was utilized for this procedure. No radiologist interpretation was requested. Refer to the EMR for findings. Refer to PACS for any patient radiation dose information.TACROLIMUS [id number] 09:57:35 Test Item Value Reference Range Interpretation Comments TACROLIMUS BLOOD 9.6 ng/mL 10.0-20.0 L Test perfor med on Calhoun (BEAKER) (test code Architec t Immunoassay = 657) system with Chemiluminescen t Microparticle I mmunoassay (CMIA) omi gy. Software Quality Tester ID - ADMINURINE [id number] 09:00:47 Test Item Value Reference Range Interpretation Comments CULTURE (BEAKER) PSEUDOMONAS A 50-59,000 c ol/mL (test code = 1095) AERUGINOSA Pseudomon as aeruginosa Amikacin (test code See_Comment S [Automa lisa = 1) message] The system which generated this result transmitted reference range : Susceptible 0-1 6 , Resistant <0 or >16 . The reference range was not used to interpret this result as normal/abnormal . Aztreonam (test code See_Comment S [Autom ated = 32) message] The system which generated this result transmitted reference range : Susceptible 0-8 , Resistant <0 or >8 . The reference range was not used to interpret this result as normal/abnormal . Cefepime (test code See_Comment S [Automa lisa = 51) message] The system which generated this result transmitted reference range : Susceptible 0-8 , Resistant <0 or >8 . The reference range was not used to interpret this result as normal/abnormal . Ceftazidime (test See_Comment S [Automate d code = 27) message] The system which generated this result transmitted reference range : Susceptible 0-8 , Resistant <0 or >8 . The reference range was not used to interpret this result as normal/abnormal . Ciprofloxacin (test See_Comment S [Automa lisa code = 7) message] The system which generated this result transmitted reference range : Susceptible 0-0 .5 , Resistant <0 or >.5 . The reference range was not used to interpret this result as normal/abnormal . Gentamicin (test See_Comment S [Automated code = 18) message] The system which generated this result transmitted reference range : Susceptible 0-4 , Resistant <0 or >4 . The reference range was not used to interpret this result as normal/abnormal . Levofloxacin (test See_Comment S [Automat ed code = 22) message] The system which generated this result transmitted reference range : Susceptible 0-1 , Resistant <0 or >1 . The reference range was not used to interpret this result as normal/abnormal . Meropenem (test code See_Comment S [Autom ated = 34) message] The system which generated this result transmitted reference range : Susceptible 0-2 , Resistant <0 or >2 . The reference range was not used to interpret this result as normal/abnormal . Piperacillin (test See_Comment S [Automat ed code = 24) message] The system which generated this result transmitted reference range : Susceptible 0-1 6 , Resistant <0 or >16 . The reference range was not used to interpret this result as normal/abnormal . Piperacillin + See_Comment S [Automated Tazobactam (test message] Th e code = 29) system which generated this result transmitted reference range : Susceptible 0-1 6 , Resistant <0 or >16 . The reference range was not used to interpret this result as normal/abnormal . Tobramycin (test See_Comment S [Automated code = 25) message] The system which generated this result transmitted reference range : Susceptible 0-4 , Resistant <0 or >4 . The reference range was not used to interpret this result as normal/abnormal . POCT-GLUCOSE [id number] 08:13:37 Test Item Value Reference Range Interpretation Comments POC-GLUCOSE METER 88 mg/dL 70-110 : TESTED A T [facility] [address] (BEAKER) (test code = [facility], 1538) [address]: Software Quality Tester/Techni zaire ID = [id number] for Nadia Brenner BASIC METABOLIC [id number] 07:08:45 Test Item Value Reference Range Interpretation Comments SODIUM (BEAKER) 135 meq/L 136-145 L (test code = 381) POTASSIUM 4.9 meq/L 3.5-5.1 Specimen slight ly (BEAKER) (test hemolyzed code = 379) CHLORIDE (BEAKER) 107 meq/L 98-107 (test code = 382) CO2 (BEAKER) 22 meq/L 22-29 (test code = 355) BLOOD UREA 8 mg/dL 7-21 NITROGEN (BEAKER) (test code = 354) CREATININE 0.62 mg/dL 0.57-1.25 Specimen slight ly (BEAKER) (test hemolyzed code = 358) GLUCOSE RANDOM 81 mg/dL 70-105 (BEAKER) (test code = 652) CALCIUM (BEAKER) 7.8 mg/dL 8.4-10.2 L (test code = 697) EGFR (BEAKER) 105 Interpretatio n of eGFR (test code = [...] not appl icable for dialysis patien ts Software Quality Tester ID - MARIOGAMMA GLUTAMYL TRANSFERASE (GGT)2022-09-09 07:08:35 Test Item Value Reference Range Interpretation Comments GAMMA GLUTAMYL 163 U/L 9-64 H Specimen slig htly TRANSFERASE (BEAKER) hemolyz ed (test code = 364) Software Quality Tester ID - [id number] 07:08:34 Test Item Value Reference Range Interpretation Comments PHOSPHORUS (BEAKER) 2.5 mg/dL 2.3-4.7 Specimen slightly (test code = 604) hemolyzed Software Quality Tester ID - MARIOHEPATIC FUNCTION [id number] 07:08:34 Test Item Value Reference Range Interpretation Comments TOTAL PROTEIN (BEAKER) 5.7 gm/dL 6.0-8.3 L Speci men slightly (test code = 770) hemolyzed ALBUMIN (BEAKER) (test 2.4 g/dL 3.5-5.0 L Speci men slightly code = 1145) hemolyzed BILIRUBIN TOTAL 1.2 mg/dL 0.2-1.2 Specimen sli ghtly (BEAKER) (test code = hemoly zed 377) BILIRUBIN DIRECT 0.5 mg/dL 0.1-0.5 Specimen sl ightly (BEAKER) (test code = hemoly zed 706) ALKALINE PHOSPHATASE 484 U/L 40-150 H (BEAKER) (test code = 346) AST (SGOT) (BEAKER) 37 U/L 5-34 H Specimen slightly (test code = 353) hemolyzed ALT (SGPT) (BEAKER) 42 U/L 6-55 Specimen slightly (test code = 347) hemolyzed Software Quality Tester ID - [id number] 07:08:33 Test Item Value Reference Range Interpretation Comments MAGNESIUM (BEAKER) 1.5 mg/dL 1.6-2.6 L Specimen slightly (test code = 627) hemolyzed Software Quality Tester ID - [id number] 06:54:08 Test Item Value Reference Range Interpretation Comments PARTIAL THROMBOPLASTIN TIME 25.3 seconds 22.5-36.0 (BEAKER) (test code = 760) PROTHROMBIN TIME/[id number] 06:53:26 Test Item Value Reference Range Interpretation Comments PROTIME (BEAKER) (test code = 14.6 seconds 11.9-14.2 H 759) INR (BEAKER) (test code = 370) 1.21 <=5.90 RECOMMENDED COUMADIN/WARFARIN INR THERAPY RANGESSTANDARD DOSE: 2.0 - 3.0 Includes: PROPHYLAXIS for venous thrombosis, systemic embolization; TREATMENT for venous thrombosis and/or pulmonary embolus.HIGH RISK: Target INR is 2.5-3.5 for patients with mechanical heart valves.CBC W/PLT COUNT & AUTO [id number] 06:47:33 Test Item Value Reference Range Interpretation Comments WHITE BLOOD CELL COUNT (BEAKER) 8.4 K/ L 3.5-10.5 (test code = 775) RED BLOOD CELL COUNT (BEAKER) 3.88 M/ L 4.63-6.08 L (test code = 761) HEMOGLOBIN (BEAKER) (test code = 9.7 GM/DL 13.7-17.5 L 410) HEMATOCRIT (BEAKER) (test code = 32.2 % 40.1-51.0 L 411) MEAN CORPUSCULAR VOLUME (BEAKER) 83 fL 79-92 (test code = 753) MEAN CORPUSCULAR HEMOGLOBIN 25.0 pg 25.7-32.2 L (BEAKER) (test code = 751) MEAN CORPUSCULAR HEMOGLOBIN CONC 30.1 GM/DL 32.3-36.5 L (BEAKER) (test code = 752) RED CELL DISTRIBUTION WIDTH 19.3 % 11.6-14.4 H (BEAKER) (test code = 412) PLATELET COUNT (BEAKER) (test 157 K/CU MM 150-450 code = 756) MEAN PLATELET VOLUME (BEAKER) 10.3 fL 9.4-12.4 (test code = 754) NUCLEATED RED BLOOD CELLS 1 /100 WBC 0-0 H (BEAKER) (test code = 413) NEUTROPHILS RELATIVE PERCENT 56 % (BEAKER) (test code = 429) LYMPHOCYTES RELATIVE PERCENT 23 % (BEAKER) (test code = 430) MONOCYTES RELATIVE PERCENT 9 % (BEAKER) (test code = 431) EOSINOPHILS RELATIVE PERCENT 8 % (BEAKER) (test code = 432) BASOPHILS RELATIVE PERCENT 2 % (BEAKER) (test code = 437) NEUTROPHILS ABSOLUTE COUNT 4.69 K/ L 1.78-5.38 (BEAKER) (test code = 670) LYMPHOCYTES ABSOLUTE COUNT 1.88 K/ L 1.32-3.57 (BEAKER) (test code = 414) MONOCYTES ABSOLUTE COUNT (BEAKER) 0.75 K/ L 0.30-0.82 (test code = 415) EOSINOPHILS ABSOLUTE COUNT 0.67 K/ L 0.04-0.54 H (BEAKER) (test code = 416) BASOPHILS ABSOLUTE COUNT (BEAKER) 0.16 K/ L 0.01-0.08 H (test code = 417) IMMATURE GRANULOCYTES-RELATIVE 2.60 % 0.00-1.00 H PERCENT (BEAKER) (test code = 2801) POCT-GLUCOSE [id number] 21:59:34 Test Item Value Reference Range Interpretation Comments POC-GLUCOSE METER 113 mg/dL 70-110 H : TESTED A T [facility] 67[facility] (BEAKER) (test code [facility], = 1538) 7[address]: Software Quality Tester/Techni zaire ID = [id number] for Katia Aguiar POCT-GLUCOSE [id number] 17:25:44 Test Item Value Reference Range Interpretation Comments POC-GLUCOSE METER 376 mg/dL 70-110 H : TESTED A T [facility] 67[address] (BEAKER) (test code = [place], 1538) [address]10[address]: Software Quality Tester/Techni zaire ID = [id number] for Rigo, Ra gaurang Respiratory Panel [id number] 16:40:03 Test Item Value Reference Range Interpretation Comments Human Metapneumovirus Detected Not detected, A Conta ct (test code = 53978-9) Equivocal isolat ion. Consider stopping antibiotics. Rhinovirus (test code Not detected Not detected, = 20777-8) Equivocal INFLUENZA A (NO Not detected Not detected, SUBTYPE) (test code = Equivocal 50844-8) Influenza A subtype H1 (test code = 77219-4) Influenza A Subtype H3 (test code = 17977-1) Influenza A Subtype H1-2009 (test code = 42564-0) Influenza B (test Not detected Not detected, code = 67915-2) Equivocal Respiratory Syncytial Not detected Not detected, Virus (test code = Equivocal 33962-2) Parainfluenza Virus 1 Not detected Not detected, (test code = 25769-9) Equivocal Parainfluenza Virus 2 Not detected Not detected, (test code = 40655-0) Equivocal Parainfluenza virus 3 Not detected Not detected, (test code = 71008-0) Equivocal Parainfluenza Virus 4 Not detected Not detected, (test code = 99534-9) Equivocal Adenovirus (test code Not detected Not detected, = 80008-9) Equivocal Coronavirus 229E Not detected Not detected, (test code = 84587-0) Equivocal Coronavirus HKU1 Not detected Not detected, (test code = 24147-3) Equivocal Coronavirus NL63 Not detected Not detected, (test code = 82739-5) Equivocal Coronavirus OC43 Not detected Not detected, (test code = 08725-4) Equivocal Bordetella Pertussis Not detected Not detected, (test code = 34866-0) Equivocal Chlamydophila Not detected Not detected, Pneumoniae (test code Equivocal = 39654-1) Mycoplasma Pneumoniae Not detected Not detected, (test code = 96859-1) Equivocal Severe Acute Not detected Not detected, Nahfhyxdkxy-OmW-1 Equivocal (test code = 94068-1) Bordtella Not detected Not detected, Parapertussis (test Equivocal code = 06273-1) MADALYN (test code = MADALYN) Other viruses and bacteria not targeted by this PCR panel cannot be excluded; therefore clinical correlation and follow up of serology, culture results, and other molecular studies is required. The results are not intended to be used as the sole means for clinical diagnosis or patient management decisions. This sample was tested at the [facility] Molecular Diagnostics Laboratory using the RingerscommunicationsArray Respiratory Panel. It is FDA cleared and has been verified and approved by the [facility] Molecular Diagnostics Laboratory for clinical use on nasopharyngeal swab specimens. The performance of the FilmArray RP has not been established in individuals who received influenza vaccine. Recent administration of a nasal influenza vaccine may cause false positive results for Influenza A and/orInfluenza B. Lab Interpretation Abnormal (test code = 26316-8) [facility] [id number] 16:40:03 Test Item Value Reference Range Interpretation Comments HUMAN METAPNEUMOVIRUS Detected Not detected, A Conta ct (BEAKER) (test code = Equivocal isolat ion. 2683) Consider stopping antibiotics. RHINOVIRUS (BEAKER) Not detected Not detected, (test code = 2684) Equivocal INFLUENZA A (BEAKER) Not detected Not detected, (test code = 2685) Equivocal INFLUENZA A (NO SUBTYPE) (test code = 3606) INFLUENZA A SUBTYPE H1 (BEAKER) (test code = 2686) INFLUENZA A SUBTYPE H3 (BEAKER) (test code = 2687) INFLUENZA A SUBTYPE H1-2009 (BEAKER) (test code = 3198) INFLUENZA B (BEAKER) Not detected Not detected, (test code = 2688) Equivocal RESPIRATORY SYNCYTIAL Not detected Not detected, VIRUS (BEAKER) (test Equivocal code = 3199) PARAINFLUENZA VIRUS 1 Not detected Not detected, (BEAKER) (test code = Equivocal 2691) PARAINFLUENZA VIRUS 2 Not detected Not detected, (BEAKER) (test code = Equivocal 2692) PARAINFLUENZA VIRUS 3 Not detected Not detected, (BEAKER) (test code = Equivocal 2693) PARAINFLUENZA VIRUS 4 Not detected Not detected, (BEAKER) (test code = Equivocal 3200) ADENOVIRUS (BEAKER) Not detected Not detected, (test code = 2694) Equivocal CORONAVIRUS 229E Not detected Not detected, (BEAKER) (test code = Equivocal 3201) CORONAVIRUS HKU1 Not detected Not detected, (BEAKER) (test code = Equivocal 3202) CORONAVIRUS NL63 Not detected Not detected, (BEAKER) (test code = Equivocal 3203) CORONAVIRUS OC43 Not detected Not detected, (BEAKER) (test code = Equivocal 3204) BORDETELLA PERTUSSIS Not detected Not detected, (BEAKER) (test code = Equivocal 3205) CHLAMYDOPHILA PNEUMONIAE Not detected Not detected, (BEAKER) (test code = Equivocal 3206) MYCOPLASMA PNEUMONIAE Not detected Not detected, (BEAKER) (test code = Equivocal 3207) SEVERE ACUTE RESPIRATORY Not detected Not detected, [id number] Equivocal (test code = 4869577) BORDETELLA PARAPERTUSSIS Not detected Not detected, (BKR) (test code = Equivocal 3306255) Other viruses and bacteria not targeted by this PCR panel cannot be excluded; therefore clinical correlation and follow up of serology, culture results, and other molecular studies is required. The results are not intended to be used as the sole means for clinical diagnosis or patient management decisions. This sample was tested at the [facility] Molecular Diagnostics Laboratory using the Nveloped FilmArray Respiratory Panel. It is FDA cleared and has been verified and approved by the [facility] Molecular Diagnostics Laboratory for clinical use on nasopharyngeal swab specimens.The performance of the FilmArrayRP has not been established in individuals who received influenza vaccine. Recent administration of a nasal influenza vaccine may cause false positive results for Influenza A and/orInfluenza B.[id number] 16:37:04 Test Item Value Reference Range Interpretation Comments PROSTATE SPECIFIC ANTIGEN (BEAKER) 3.9 ng/mL 0.0-4.0 (test code = 844) Software Quality Tester ID - BSTACROLIMUS [id number] 11:43:02 Test Item Value Reference Range Interpretation Comments TACROLIMUS BLOOD 11.0 ng/mL 10.0-20.0 Test perfor med on Calhoun (BEAKER) (test code Architec t Immunoassay = 657) system with Chemiluminescen t Microparticle Immunoassay (CM IA) technology. Software Quality Tester ID - ADMINSputum Culture + Gram [id number] 09:56:14 Test Item Value Reference Range Interpretation Comments Result (test code = 4+ Normal respiratory 6463-4) rosalie present Gram Stain Result <1+ gram positive cocci (test code = 1123) in chains and clusters MADALYN (test code = MADALYN) [facility] [id number] 09:56:14 Test Item Value Reference Range Interpretation Comments CULTURE (BEAKER) 4+ Normal respiratory (test code = 1095) rosalie present GRAM STAIN RESULT <1+ WBCs (BEAKER) (test code = 1123) GRAM STAIN RESULT 0-5 epithelial cells (BEAKER) (test code = 050233) GRAM STAIN RESULT <1+ gram positive rods (BEAKER) (test code = 909474) GRAM STAIN RESULT 1+ gram positive cocci (BEAKER) (test code = in pairs 251429) GRAM STAIN RESULT <1+ gram positive cocci (BEAKER) (test code = in chains and clusters 033201) POCT-GLUCOSE [id number] 08:28:03 Test Item Value Reference Range Interpretation Comments POC-GLUCOSE METER 113 mg/dL 70-110 H : TESTED A T [facility] 6720 (BEAKER) (test code = [place], 1538) [address]: Software Quality Tester/Techni zaire ID = [id number] for Rigo Ra y BASIC METABOLIC [id number] 08:05:27 Test Item Value Reference Range Interpretation Comments SODIUM (BEAKER) 135 meq/L 136-145 L (test code = 381) POTASSIUM 4.7 meq/L 3.5-5.1 (BEAKER) (test code = 379) CHLORIDE (BEAKER) 106 meq/L 98-107 (test code = 382) CO2 (BEAKER) 23 meq/L 22-29 (test code = 355) BLOOD UREA 8 mg/dL 7-21 NITROGEN (BEAKER) (test code = 354) CREATININE 0.64 mg/dL 0.57-1.25 (BEAKER) (test code = 358) GLUCOSE RANDOM 68 mg/dL 70-105 L (BEAKER) (test code = 652) CALCIUM (BEAKER) 7.6 mg/dL 8.4-10.2 L (test code = 697) EGFR (BEAKER) 104 Interpretatio n of eGFR (test code = [...] not appl icable for dialysis patien ts Software Quality Tester ID - MARIOGAMMA GLUTAMYL TRANSFERASE (GGT)2022-09-08 06:59:43 Test Item Value Reference Range Interpretation Comments GAMMA GLUTAMYL TRANSFERASE (BEAKER) 150 U/L 9-64 H (test code = 364) Software Quality Tester ID - [id number] 06:59:42 Test Item Value Reference Range Interpretation Comments PHOSPHORUS (BEAKER) (test code = 2.4 mg/dL 2.3-4.7 604) Software Quality Tester ID - RODOHEPATIC FUNCTION [id number] 06:59:42 Test Item Value Reference Range Interpretation Comments TOTAL PROTEIN (BEAKER) (test code = 5.3 gm/dL 6.0-8.3 L 770) ALBUMIN (BEAKER) (test code = 1145) 2.4 g/dL 3.5-5.0 L BILIRUBIN TOTAL (BEAKER) (test code 1.3 mg/dL 0.2-1.2 H = 377) BILIRUBIN DIRECT (BEAKER) (test 0.7 mg/dL 0.1-0.5 H code = 706) ALKALINE PHOSPHATASE (BEAKER) (test 457 U/L 40-150 H code = 346) AST (SGOT) (BEAKER) (test code = 29 U/L 5-34 353) ALT (SGPT) (BEAKER) (test code = 45 U/L 6-55 347) Software Quality Tester ID - [id number] 06:59:41 Test Item Value Reference Range Interpretation Comments MAGNESIUM (BEAKER) (test code = 1.8 mg/dL 1.6-2.6 627) Software Quality Tester ID - RODOCBC W/PLT COUNT & AUTO [id number] 06:08:27 Test Item Value Reference Range Interpretation Comments WHITE BLOOD CELL COUNT (BEAKER) 7.2 K/ L 3.5-10.5 (test code = 775) RED BLOOD CELL COUNT (BEAKER) 3.86 M/ L 4.63-6.08 L (test code = 761) HEMOGLOBIN (BEAKER) (test code = 9.7 GM/DL 13.7-17.5 L 410) HEMATOCRIT (BEAKER) (test code = 32.0 % 40.1-51.0 L 411) MEAN CORPUSCULAR VOLUME (BEAKER) 83 fL 79-92 (test code = 753) MEAN CORPUSCULAR HEMOGLOBIN 25.1 pg 25.7-32.2 L (BEAKER) (test code = 751) MEAN CORPUSCULAR HEMOGLOBIN CONC 30.3 GM/DL 32.3-36.5 L (BEAKER) (test code = 752) RED CELL DISTRIBUTION WIDTH 19.3 % 11.6-14.4 H (BEAKER) (test code = 412) PLATELET COUNT (BEAKER) (test 123 K/CU MM 150-450 L code = 756) MEAN PLATELET VOLUME (BEAKER) 9.9 fL 9.4-12.4 (test code = 754) NUCLEATED RED BLOOD CELLS 0 /100 WBC 0-0 (BEAKER) (test code = 413) NEUTROPHILS RELATIVE PERCENT 57 % (BEAKER) (test code = 429) LYMPHOCYTES RELATIVE PERCENT 23 % (BEAKER) (test code = 430) MONOCYTES RELATIVE PERCENT 9 % (BEAKER) (test code = 431) EOSINOPHILS RELATIVE PERCENT 8 % (BEAKER) (test code = 432) BASOPHILS RELATIVE PERCENT 1 % (BEAKER) (test code = 437) NEUTROPHILS ABSOLUTE COUNT 4.12 K/ L 1.78-5.38 (BEAKER) (test code = 670) LYMPHOCYTES ABSOLUTE COUNT 1.67 K/ L 1.32-3.57 (BEAKER) (test code = 414) MONOCYTES ABSOLUTE COUNT (BEAKER) 0.61 K/ L 0.30-0.82 (test code = 415) EOSINOPHILS ABSOLUTE COUNT 0.54 K/ L 0.04-0.54 (BEAKER) (test code = 416) BASOPHILS ABSOLUTE COUNT (BEAKER) 0.10 K/ L 0.01-0.08 H (test code = 417) IMMATURE GRANULOCYTES-RELATIVE 2.20 % 0.00-1.00 H PERCENT (BEAKER) (test code = 2801) [id number] 06:07:26 Test Item Value Reference Range Interpretation Comments PARTIAL THROMBOPLASTIN TIME 24.3 seconds 22.5-36.0 (BEAKER) (test code = 760) PROTHROMBIN TIME/[id number] 06:06:45 Test Item Value Reference Range Interpretation Comments PROTIME (BEAKER) (test code = 14.7 seconds 11.9-14.2 H 759) INR (BEAKER) (test code = 370) 1.18 <=5.90 RECOMMENDED COUMADIN/WARFARIN INR THERAPY RANGESSTANDARD DOSE: 2.0 - 3.0 Includes: PROPHYLAXIS for venous thrombosis, systemic embolization; TREATMENT for venous thrombosis and/or pulmonary embolus.HIGH RISK: Target INR is 2.5-3.5 for patients with mechanical heart valves.POCT-GLUCOSE [id number] 21:49:24 Test Item Value Reference Range Interpretation Comments POC-GLUCOSE METER 217 mg/dL 70-110 H : TESTED A T [facility] 6720 (AKER) (test code [facility], = 1538) 42853: Software Quality Tester/Techni zaire ID = [id number] for Case Katia merlos POCT-GLUCOSE [id number] 12:58:46 Test Item Value Reference Range Interpretation Comments POC-GLUCOSE METER 212 mg/dL 70-110 H : TESTED A T [facility] 6720 (BEAKER) (test code = [place], 1538) [address]42: Software Quality Tester/Techni zaire ID = [id number] for WENDY WINSLOW TACROLIMUS [id number] 10:43:19 Test Item Value Reference Range Interpretation Comments TACROLIMUS BLOOD 9.2 ng/mL 10.0-20.0 L Test perfor med on [place] (BEAKER) (test code Architec t Immunoassay = 657) system with Chemiluminescen t Microparticle I mmunoassay (CMIA) technolo gy. Software Quality Tester ID - ADMINGAMMA GLUTAMYL TRANSFERASE (GGT)2022-09-07 07:57:48 Test Item Value Reference Range Interpretation Comments GAMMA GLUTAMYL TRANSFERASE (BEAKER) 138 U/L 9-64 H (test code = 364) Software Quality Tester ID - LIZ WPOCT-GLUCOSE [id number] 07:38:21 Test Item Value Reference Range Interpretation Comments POC-GLUCOSE METER 73 mg/dL 70-110 : TESTED A T [facility] 6720 ([facility]) (test code = [place], 1538) 83111: Software Quality Tester/Techni zaire ID = [id number] for WENDY MERCADO CBC W/PLT COUNT & AUTO [id number] 07:29:28 Test Item Value Reference Range Interpretation Comments WHITE BLOOD CELL COUNT (BEAKER) 7.9 K/ L 3.5-10.5 (test code = 775) RED BLOOD CELL COUNT (BEAKER) 4.06 M/ L 4.63-6.08 L (test code = 761) HEMOGLOBIN (BEAKER) (test code = 10.1 GM/DL 13.7-17.5 L 410) HEMATOCRIT (BEAKER) (test code = 34.5 % 40.1-51.0 L 411) MEAN CORPUSCULAR VOLUME (BEAKER) 85 fL 79-92 (test code = 753) MEAN CORPUSCULAR HEMOGLOBIN 24.9 pg 25.7-32.2 L (BEAKER) (test code = 751) MEAN CORPUSCULAR HEMOGLOBIN CONC 29.3 GM/DL 32.3-36.5 L (BEAKER) (test code = 752) RED CELL DISTRIBUTION WIDTH 19.4 % 11.6-14.4 H (BEAKER) (test code = 412) PLATELET COUNT (BEAKER) (test 118 K/CU MM 150-450 L code = 756) MEAN PLATELET VOLUME (BEAKER) 10.3 fL 9.4-12.4 (test code = 754) NUCLEATED RED BLOOD CELLS 1 /100 WBC 0-0 H (BEAKER) (test code = 413) NEUTROPHILS RELATIVE PERCENT 61 % (BEAKER) (test code = 429) LYMPHOCYTES RELATIVE PERCENT 18 % (BEAKER) (test code = 430) MONOCYTES RELATIVE PERCENT 8 % (BEAKER) (test code = 431) EOSINOPHILS RELATIVE PERCENT 9 % (BEAKER) (test code = 432) BASOPHILS RELATIVE PERCENT 2 % (BEAKER) (test code = 437) NEUTROPHILS ABSOLUTE COUNT 4.82 K/ L 1.78-5.38 (BEAKER) (test code = 670) LYMPHOCYTES ABSOLUTE COUNT 1.45 K/ L 1.32-3.57 (BEAKER) (test code = 414) MONOCYTES ABSOLUTE COUNT (BEAKER) 0.61 K/ L 0.30-0.82 (test code = 415) EOSINOPHILS ABSOLUTE COUNT 0.68 K/ L 0.04-0.54 H (BEAKER) (test code = 416) BASOPHILS ABSOLUTE COUNT (BEAKER) 0.14 K/ L 0.01-0.08 H (test code = 417) IMMATURE GRANULOCYTES-RELATIVE 2.00 % 0.00-1.00 H PERCENT (BEAKER) (test code = 2801) BASIC METABOLIC [id number] 07:06:01 Test Item Value Reference Range Interpretation Comments SODIUM (BEAKER) 135 meq/L 136-145 L (test code = 381) POTASSIUM 4.8 meq/L 3.5-5.1 (BEAKER) (test code = 379) CHLORIDE (BEAKER) 103 meq/L 98-107 (test code = 382) CO2 (BEAKER) 26 meq/L 22-29 (test code = 355) BLOOD UREA 10 mg/dL 7-21 NITROGEN (BEAKER) (test code = 354) CREATININE 0.65 mg/dL 0.57-1.25 (BEAKER) (test code = 358) GLUCOSE RANDOM 65 mg/dL 70-105 L (BEAKER) (test code = 652) CALCIUM (BEAKER) 7.7 mg/dL 8.4-10.2 L (test code = 697) EGFR (BEAKER) 104 Interpretatio n of eGFR (test code = [...] not appl icable for dialysis patien ts Software Quality Tester ID - DBHEPATIC FUNCTION [id number] 06:54:25 Test Item Value Reference Range Interpretation Comments TOTAL PROTEIN (BEAKER) (test code = 5.5 gm/dL 6.0-8.3 L 770) ALBUMIN (BEAKER) (test code = 1145) 2.5 g/dL 3.5-5.0 L BILIRUBIN TOTAL (BEAKER) (test code 1.4 mg/dL 0.2-1.2 H = 377) BILIRUBIN DIRECT (BEAKER) (test 0.9 mg/dL 0.1-0.5 H code = 706) ALKALINE PHOSPHATASE (BEAKER) (test 410 U/L 40-150 H code = 346) AST (SGOT) (BEAKER) (test code = 32 U/L 5-34 353) ALT (SGPT) (BEAKER) (test code = 44 U/L 6-55 347) Software Quality Tester ID - [id number] 06:54:24 Test Item Value Reference Range Interpretation Comments MAGNESIUM (BEAKER) (test code = 1.5 mg/dL 1.6-2.6 L 627) Software Quality Tester ID - [id number] 06:54:24 Test Item Value Reference Range Interpretation Comments PHOSPHORUS ([place]AD[place]) (test code = 2.3 mg/dL 2.3-4.7 604) Software Quality Tester ID - [id number] 06:44:22 Test Item Value Reference Range Interpretation Comments PARTIAL THROMBOPLASTIN TIME 22.2 seconds 22.5-36.0 L ([place]) (test code = 760) PROTHROMBIN TIME/[id number] 06:43:44 Test Item Value Reference Range Interpretation Comments PROTIME ([place]) (test code = 13.9 seconds 11.9-14.2 759) INR ([place]ADISON) (test code = 370) 1.09 <=5.90 RECOMMENDED COUMADIN/WARFARIN INR THERAPY RANGESSTANDARD DOSE: 2.0 - 3.0 Includes: PROPHYLAXIS for venous thrombosis, systemic embolization; TREATMENT for venous thrombosis and/or pulmonary embolus.HIGH RISK: Target INR is 2.5-3.5 for patients with mechanical heart valves.EBV VIRAL [id number] 06:17:44 Test Item Value Reference Range Interpretation Comments EBV VIRAL LOAD - Negative or below See_Comment [Auto mated message] NEGATIVE ([place]) the linear range The sy stem which (test code = of the assay generated this 2559) (<500 IU /mL) result transmi tted reference range : <500 - >5,00 0,000 IU/mL. The refe rence range was not u sed to interpret th is result as normal/abnormal . POCT-GLUCOSE [id number] 23:37:17 Test Item Value Reference Range Interpretation Comments POC-GLUCOSE METER 152 mg/dL 70-110 H : TESTED A T [facility] 6720 ([employer]) (test code = [place] [facility], 1538) 38577: Software Quality Tester/Techni zaire ID = [id number] for Kinza Santos POCT-GLUCOSE [id number] 16:46:53 Test Item Value Reference Range Interpretation Comments POC-GLUCOSE METER 308 mg/dL 70-110 H : TESTED A T [facility] 6720 ([employer]) (test code = [place] [facility], 153) 04547: Software Quality Tester/Techni zaire ID = [id number] for Edwin Braxton kruse Rapid drug screen, [id number] 16:46:32 Test Item Value Reference Range Interpretation Comments Barbiturate Screen Negative Negative (test code = 92090-0) Benzodiazepine Screen Negative Negative (test code = 41959-5) Cocaine (Metab.) Negative Negative Screen (test code = 3397-7) Methadone Screen (test Negative Negative code = 25218-9) Opiate Screen (test Negative Negative code = 98853-6) Cannabinoid Screen Negative Negative (test code = 37281-0) Amph/Methamph Screen Negative Negative (test code = 57046-3) Phencyclidine Screen Negative Negative (test code = 85834-8) pH, UA (test code = 7.5 5.0-8.0 5803-2) MADALYN (test code = MADALYN) DRUG CUTOFF CONC.Cocaine 300 ng/mL Cannabinoid 50 ng/mLBenzodiazepine 200 ng/mLBarbiturate 200 ng/mLPhencyclidine 25 ng/mLOpiate 300 ng/mLMethadone 300 ng/mLAmphetamine/ 1000 ng/mL Methamphetamine This assay provides an unconfirmed qualitative test result for the clinical management of patients in emergency situations. Chain of custody not maintained. Some ssch-tfv-kzhyzrx medications, as well as adulterants, may cause inaccurate results. Clinical correlation should be applied. A more comprehensive drug screen or confirmation of a detected drug may be performed upon request.Software Quality Tester ID - DB Lab Interpretation Normal (test code = 65552-0) [facility], [id number] 16:46:32 Test Item Value Reference Range Interpretation Comments BARBITURATE URINE (BEAKER) (test Negative Negative code = 725) BENZODIAZEPINE SCREEN URINE (BEAKER) Negative Negative (test code = 726) COCAINE (METAB.) SCREEN (BEAKER) Negative Negative (test code = 1164) METHADONE SCREEN (BEAKER) (test code Negative Negative = 1436) OPIATE SCREEN URINE (BEAKER) (test Negative Negative code = 734) CANNABINOID SCREEN URINE (BEAKER) Negative Negative (test code = 727) AMPH/METHAMPH SCREEN (BEAKER) (test Negative Negative code = 1438) PHENCYCLIDINE SCREEN URINE (BEAKER) Negative Negative (test code = 608) PH UA (BEAKER) (test code = 467) 7.5 5.0-8.0 DRUG CUTOFF CONC.Cocaine 300 ng/mL Cannabinoid 50 ng/mLBenzodiazepine 200 ng/mLBarbiturate 200 ng/mLPhencyclidine 25 ng/mLOpiate 300 ng/mLMethadone 300 ng/mLAmphetamine/ 1000 ng/mL MethamphetamineThis assay provides an unconfirmed qualitative test result for the clinical management of patients in emergency situations. Chain of custody not maintained. Some coon-pnu-radhrep medications, as well as adulterants, may cause inaccurate results. Clinical correlation should be applied. A more comprehensive drug screen or confirmation of a detected drug may be performed upon request.Software Quality Tester ID - DBCMV PCR, [id number] 14:32:59 Test Item Value Reference Range Interpretation Comments CMV VIRAL LOAD - Negative or below See_Comment [Auto mated message] NEGATIVE ([employer]) the linear range The sy stem which (test code = of the assay generated this 2558) (<300 IU/mL) result transmit lisa reference range : <300 - >3,00 0,000 IU/mL. The refe rence range was not u sed to interpret th is result as normal/abnormal . POCT-GLUCOSE [id number] 12:25:03 Test Item Value Reference Range Interpretation Comments POC-GLUCOSE METER 243 mg/dL 70-110 H : [facility] T [facility] ([employer]) (test code = [place] [facility], 1538) 07513: Software Quality Tester/Techni zaire ID = [id number] for Braxton Butler TACROLIMUS [id number] 09:49:58 Test Item Value Reference Range Interpretation Comments TACROLIMUS BLOOD 7.0 ng/mL 10.0-20.0 L Test perfor med on [place] ([employer]) (test code Architec t Immunoassay = 657) system with Chemiluminescen t Microparticle I mmunoassay (CMIA) technolo gy. Software Quality Tester ID - ADMINPOCT-GLUCOSE [id number] 09:16:11 Test Item Value Reference Range Interpretation Comments POC-GLUCOSE METER 130 mg/dL 70-110 H : TESTED A T [facility] 6720 ([employer]) (test code = [facility] [facility], 1538) 25234: Software Quality Tester/Techni zaire ID = [id number] for Braxton Butler BASIC METABOLIC [id number] 08:10:08 Test Item Value Reference Range Interpretation Comments SODIUM (BEAKER) 136 meq/L 136-145 (test code = 381) POTASSIUM 4.7 meq/L 3.5-5.1 (BEAKER) (test code = 379) CHLORIDE (BEAKER) 104 meq/L 98-107 (test code = 382) CO2 (BEAKER) 27 meq/L 22-29 (test code = 355) BLOOD UREA 7 mg/dL 7-21 NITROGEN (BEAKER) (test code = 354) CREATININE 0.64 mg/dL 0.57-1.25 (BEAKER) (test code = 358) GLUCOSE RANDOM 187 mg/dL 70-105 H (BEAKER) (test code = 652) CALCIUM (BEAKER) 7.9 mg/dL 8.4-10.2 L (test code = 697) EGFR (BEAKER) 104 Interpretatio n of eGFR (test code = [...] not appl icable for dialysis patien ts Software Quality Tester ID - MARCOGAMMA GLUTAMYL TRANSFERASE (GGT)2022-09-06 07:48:35 Test Item Value Reference Range Interpretation Comments GAMMA GLUTAMYL TRANSFERASE (BEAKER) 123 U/L 9-64 H (test code = 364) Software Quality Tester ID - [id number] 07:48:34 Test Item Value Reference Range Interpretation Comments PHOSPHORUS (BEAKER) (test code = 3.0 mg/dL 2.3-4.7 604) Software Quality Tester ID - MARCOHEPATIC FUNCTION [id number] 07:48:34 Test Item Value Reference Range Interpretation Comments TOTAL PROTEIN (BEAKER) (test code = 5.1 gm/dL 6.0-8.3 L 770) ALBUMIN (BEAKER) (test code = 1145) 2.3 g/dL 3.5-5.0 L BILIRUBIN TOTAL (BEAKER) (test code 1.3 mg/dL 0.2-1.2 H = 377) BILIRUBIN DIRECT (BEAKER) (test 0.8 mg/dL 0.1-0.5 H code = 706) ALKALINE PHOSPHATASE (BEAKER) (test 360 U/L 40-150 H code = 346) AST (SGOT) (BEAKER) (test code = 24 U/L 5-34 353) ALT (SGPT) (BEAKER) (test code = 48 U/L 6-55 347) Software Quality Tester ID - [id number] 07:48:33 Test Item Value Reference Range Interpretation Comments MAGNESIUM (BEAKER) (test code = 1.9 mg/dL 1.6-2.6 627) Software Quality Tester ID - [id number] 07:23:15 Test Item Value Reference Range Interpretation Comments PARTIAL THROMBOPLASTIN TIME 24.1 seconds 22.5-36.0 (BEAKER) (test code = 760) PROTHROMBIN TIME/[id number] 07:22:29 Test Item Value Reference Range Interpretation Comments PROTIME (BEAKER) (test code = 14.7 seconds 11.9-14.2 H 759) INR (BEAKER) (test code = 370) 1.17 <=5.90 RECOMMENDED COUMADIN/WARFARIN INR THERAPY RANGESSTANDARD DOSE: 2.0 - 3.0 Includes: PROPHYLAXIS for venous thrombosis, systemic embolization; TREATMENT for venous thrombosis and/or pulmonary embolus.HIGH RISK: Target INR is 2.5-3.5 for patients with mechanical heart valves.CBC W/PLT COUNT & AUTO [id number] 07:15:49 Test Item Value Reference Range Interpretation Comments WHITE BLOOD CELL COUNT (BEAKER) 5.1 K/ L 3.5-10.5 (test code = 775) RED BLOOD CELL COUNT (BEAKER) 3.65 M/ L 4.63-6.08 L (test code = 761) HEMOGLOBIN (BEAKER) (test code = 9.3 GM/DL 13.7-17.5 L 410) HEMATOCRIT (BEAKER) (test code = 30.9 % 40.1-51.0 L 411) MEAN CORPUSCULAR VOLUME (BEAKER) 85 fL 79-92 (test code = 753) MEAN CORPUSCULAR HEMOGLOBIN 25.5 pg 25.7-32.2 L (BEAKER) (test code = 751) MEAN CORPUSCULAR HEMOGLOBIN CONC 30.1 GM/DL 32.3-36.5 L (BEAKER) (test code = 752) RED CELL DISTRIBUTION WIDTH 19.1 % 11.6-14.4 H (BEAKER) (test code = 412) PLATELET COUNT (BEAKER) (test code 97 K/CU MM 150-450 L = 756) MEAN PLATELET VOLUME (BEAKER) 10.2 fL 9.4-12.4 (test code = 754) NUCLEATED RED BLOOD CELLS (BEAKER) 0 /100 WBC 0-0 (test code = 413) NEUTROPHILS RELATIVE PERCENT 65 % (BEAKER) (test code = 429) LYMPHOCYTES RELATIVE PERCENT 20 % (BEAKER) (test code = 430) MONOCYTES RELATIVE PERCENT 11 % (BEAKER) (test code = 431) EOSINOPHILS RELATIVE PERCENT 1 % (BEAKER) (test code = 432) BASOPHILS RELATIVE PERCENT 2 % (BEAKER) (test code = 437) NEUTROPHILS ABSOLUTE COUNT 3.31 K/ L 1.78-5.38 (BEAKER) (test code = 670) LYMPHOCYTES ABSOLUTE COUNT 1.02 K/ L 1.32-3.57 L (BEAKER) (test code = 414) MONOCYTES ABSOLUTE COUNT (BEAKER) 0.57 K/ L 0.30-0.82 (test code = 415) EOSINOPHILS ABSOLUTE COUNT 0.04 K/ L 0.04-0.54 (BEAKER) (test code = 416) BASOPHILS ABSOLUTE COUNT (BEAKER) 0.10 K/ L 0.01-0.08 H (test code = 417) IMMATURE GRANULOCYTES-RELATIVE 1.80 % 0.00-1.00 H PERCENT (BEAKER) (test code = 2801) U/S, ABDOMINAL, WITH [id number] 03:06:00REFERRING : CHERELLE SALVADOR Reason for exam:->s/p OLT assess vessels [facility]ALEN CARDONA : 1955 Sex: MFINAL REPORT TECHNIQUE: Grayscale ultrasound of the abdomen with color Doppler and spectral Doppler ultrasound of the portal/hepatic vasculature. INDICATION: s/p OLT assess vessels. COMPARISON: 08/18/2022. FINDINGS: LIVER: Smooth contour of the liver transplant. No focal liver lesions. HEPATIC VASCULATURE: Portal veins are patent with normal waveform and directionality. Flow velocity in the main portal vein is within normal limits. The hepatic arteries are patent with normal flow velocities, resistive indices, and waveforms. The hepatic veins and confluence are patent. The main portal vein measures 1.1 cm. BILIARY:Gallbladder: Gallbladder surgically absent. There are avascular hypoechoic fluid collections within the gallbladder fossa with measurements of 1.7 x 4.2 x 1.6 cm and within Fortune's pouch with measurements of 6.4 x 2.7 x 6.1 cm.Common bile duct measures 0.5 cm, within normal limits. No intrahepatic biliary ductal dilatation. PANCREAS: Incompletely visualized due to overlying bowel gas. SPLEEN: The spleen measures 13.8 cm PERITONEUM: No free fluid. KIDNEYS: Normal in sizebilaterally. No hydronephrosis. No sonographically evident solid mass lesion. MIDLINE VASCULATURE: The visualized inferior vena cava is patent. The maximum visualized aortic diameter is 2.5 cm. Splenicartery and vein are patent. IMPRESSION: 1. Normal flow directionality and patency of the hepatic andportal vasculature. Unremarkable appearance of the liver transplant. 2. Fluid collections within thegallbladder fossa and Morison's pouch may represent postoperative seromas, chronic hematomas, or possibly bilomas. Imaging cannot confirm sterility of the collections. Signed: Brenda Stack MDReport Verified Date/Time: 09/06/2022 03:06:40 SARS-CoV2/RT-PCR (Asymptomatic ONLY)2022-09-05 23:27:57 Test Item Value Reference Interpretation Comments Range SARS-COV2/RT-PCR Negative Negative The SARS-Co V-2 (test code = target nucleic 93738-1) acids are not detected in thi s specimen. Negat nishant results do not preclude SARS-C oV-2 infection and should not be u sed as the sole bas is for patient management decisions. Nega tive results must be combined with clinical observations, patient history , and epidemiolog ical information. A false negative result may occu r if a specimen is improperly collected, transported or handled. This S ARS CoV-2 test is a rapid, real-srinivasa e RT-PCR test intended for e qualitative detection of nucleic acid fr om SARS-CoV-2 in a nasopharyngeal swab specimen collec lisa from individual s suspected of COVID-19 by the ir healthcare provider. MADALYN (test code = This test has been MADALYN) authorized by FDA under an EUA for use by authorized laboratories. This test is only authorized for the duration of the declaration that circumstances exist justifying the authorization of emergency use of in vitro diagnostic tests for detection and/or diagnosis of COVID-19 under Section 564(b)(1) of the Federal Food, Drug and Cosmetic Act, 21 U.S.C. 360bbb-3(b)(1), unless the authorization is terminated or revoked sooner. Fact Sheet for Healthcare Providers: https://www.[employer]/Documents/Xp ert%20Xpress%20SAR S%20CoV-2/Fact%20S heets/302-3802%20S ARS-COV-2%20HEALTH CARE%20PROVIDERS%2 0FACT%20SHEET.pdf Fact Sheet for Healthcare Patients: https://www.[employer]/Documents/Xp ert%20Xpress%20SAR S%20CoV-2/Fact%20S heets/302-3801%20S ARS-COV-2%20PATIEN T%20FACT%20SHEET.p df Lab Interpretation Normal (test code = 87237-8) [facility])2022-09-05 23:27:57 Test Item Value Reference Range Interpretation Comments SARS-COV2/RT-PCR Negative Negative The SARS-Co V-2 target (test code = nucleic acids a re not 0904712) detected in thi s specimen. Negative result s do not preclude SARS-C oV-2 infection and s hould not be used as the jese e basis for patient managem ent decisions. Nega tive results must be combine d with clinical observ ations, patient history , and epidemiological information. A false negativ e result may occur if a spec imen is improperly cayla ected, transported or handled. This SARS CoV-2 test is a rapid, real-time RT-PC R test intended for th e qualitative detection of nu cleic acid from SARS-CoV-2 in a nasopharyngeal swab specimen collected from individuals suspected of CO VID-19 by their [facility] provider. This test has been authorized by FDA under an EUA for use by authorized laboratories. This test is only authorized for the duration of the declaration that circumstances exist justifying the authorization of emergency use of in vitro diagnostic tests for detection and/or diagnosis of COVID-19 under Section 564(b)(1) of the Federal Food, Drug and Cosmetic Act, 21 U.S.C. 360bbb-3(b)(1), unless the authorization is terminated or revoked sooner. Fact Sheet for Healthcare Providers: https://www.[employer].Humanoid m/Documents/Xpert%20Xpress%20SARS%20CoV-2/Fact%20Sheets/302-3802%47QDIG-MIC-6%20 HEALTHCARE%20PROVIDERS%20FACT%20SHEET.pdf Fact Sheet for Healthcare Patients: https://www.[employer]/Documents/Xpert%20Xp ress%20SARS%20CoV-2/Fact%20Sheets/302-3801%11ZXVC-RPP-8%20PATIENT%20FACT%20SHEET .pdfUrinalysis w/Microscopic + Reflex to [id number] 22:41:44 Test Item Value Reference Range Interpretation Comments Color, UA (test code Yellow = 5778-6) Clarity, UA (test Clear code = 5767-9) Specific [place], UA 1.001-1.035 H (test code = 5811-5) pH, UA (test code = 7.5 5.0-8.0 5803-2) Protein, UA (test 50 mg/dL Negative A code = 21647-1) Glucose, UA (test Negative Negative code = 365) Ketones, UA (test Negative Negative code = 2514-8) Bilirubin, UA (test Positive Negative A code = 31890-9) Blood, UA (test code Negative Negative = 67625-8) Nitrite, UA (test Negative Negative code = 5802-4) Leukocytes, UA (test Negative Negative code = 5799-2) Urobilinogen, UA 2 0.2-1.0 H (test code = 78596-9) RBC, UA (test code = 7 See_Comment [Autom ated 61606-2) message] The system which generated this result transmit lisa reference range : /HPF. The reference range was not used to interpret this result as normal/abnormal . WBC, UA (test code = 0 See_Comment [Autom ated 5821-4) message] The system which generated this result transmit lisa reference range : /HPF. The reference range was not used to interpret this result as normal/abnormal . Squam Epithel, UA See_Comment [Automate d (test code = 49460-8) messag e] The system which generated this result transmit lisa reference range : /HPF. The reference range was not used to interpret this result as normal/abnormal . Specimen Source (test code = 2795) MADALNY (test code = MADALYN) Software Quality Tester ID - [auto]Software Quality Tester ID - tech Lab Interpretation Abnormal (test code = 59710-5) [facility] URINE [id number] 22:41:44 Test Item Value Reference Range Interpretation Comments COLOR (BEAKER) (test code = 470) Yellow CLARITY (BEAKER) (test code = 469) Clear SPECIFIC GRAVITY UA (BEAKER) (test > 1.001-1.035 H code = 468) PH UA (BEAKER) (test code = 467) 7.5 5.0-8.0 PROTEIN UA (BEAKER) (test code = 50 mg/dL Negative A 464) GLUCOSE UA (BEAKER) (test code = Negative Negative 365) KETONES UA (BEAKER) (test code = Negative Negative 371) BILIRUBIN UA (BEAKER) (test code = Positive Negative A 462) BLOOD UA (BEAKER) (test code = 461) Negative Negative NITRITE UA (BEAKER) (test code = Negative Negative 465) LEUKOCYTE ESTERASE UA (BEAKER) (test Negative Negative code = 466) UROBILINOGEN UA (BEAKER) (test code 2 0.2-1.0 H = 463) RBC UA (BEAKER) (test code = 519) 7 /HPF WBC UA (BEAKER) (test code = 520) 0 /HPF SQUAMOUS EPITHELIAL (BEAKER) (test < /HPF code = 516) SOURCE(BEAKER) (test code = 2795) Software Quality Tester ID - [auto]Software Quality Tester ID - techBASIC METABOLIC [id number] 22:37:07 Test Item Value Reference Range Interpretation Comments SODIUM (BEAKER) 132 meq/L 136-145 L (test code = 381) POTASSIUM 4.6 meq/L 3.5-5.1 (BEAKER) (test code = 379) CHLORIDE (BEAKER) 98 meq/L 98-107 (test code = 382) CO2 (BEAKER) 24 meq/L 22-29 (test code = 355) BLOOD UREA 6 mg/dL 7-21 L NITROGEN (BEAKER) (test code = 354) CREATININE 0.72 mg/dL 0.57-1.25 (BEAKER) (test code = 358) GLUCOSE RANDOM 234 mg/dL 70-105 H (BEAKER) (test code = 652) CALCIUM (BEAKER) 7.9 mg/dL 8.4-10.2 L (test code = 697) EGFR (BEAKER) 101 Interpretatio n of eGFR (test code = mL/min/1.73 values Stage De scription 1092) sq m Result G1 Shahnaz l or high >=90 G2 Mildly decreased 60-89 G3a Mild ly to moderately 45-5 9 G3b Moderately to s everely 30-44 G4 Severl y decreased 15-29 G5 Kidney failure <15Reported eGF R is based on the CKD-EPI 202 equation that d oes not use a race coefficientEsti mated GFR is not as accur ate as Creatinine Bonita chaudhari in predicting glom erular filtration rate . Estimated GFR is not appl icable for dialysis patien ts Software Quality Tester ID - DBB-TYPE NATRIURETIC FACTOR (BNP)2022-09-05 22:36:14 Test Item Value Reference Range Interpretation Comments B-TYPE NATRIURETIC PEPTIDE (BEAKER) 64 pg/mL 0-100 (test code = 700) Software Quality Tester ID - DBGAMMA GLUTAMYL TRANSFERASE (GGT)2022-09-05 22:32:13 Test Item Value Reference Range Interpretation Comments GAMMA GLUTAMYL TRANSFERASE (BEAKER) 139 U/L 9-64 H (test code = 364) Software Quality Tester ID - DBHEPATIC FUNCTION [id number] 22:32:12 Test Item Value Reference Range Interpretation Comments TOTAL PROTEIN (BEAKER) (test code = 5.8 gm/dL 6.0-8.3 L 770) ALBUMIN (BEAKER) (test code = 1145) 2.6 g/dL 3.5-5.0 L BILIRUBIN TOTAL (BEAKER) (test code 1.6 mg/dL 0.2-1.2 H = 377) BILIRUBIN DIRECT (BEAKER) (test 1.0 mg/dL 0.1-0.5 H code = 706) ALKALINE PHOSPHATASE (BEAKER) (test 399 U/L 40-150 H code = 346) AST (SGOT) (BEAKER) (test code = 31 U/L 5-34 353) ALT (SGPT) (BEAKER) (test code = 50 U/L 6-55 347) Software Quality Tester ID - [id number] 22:32:11 Test Item Value Reference Range Interpretation Comments MAGNESIUM (BEAKER) (test code = 1.5 mg/dL 1.6-2.6 L 627) Software Quality Tester ID - [id number] 22:32:11 Test Item Value Reference Range Interpretation Comments PHOSPHORUS (BEAKER) (test code = 2.5 mg/dL 2.3-4.7 604) Software Quality Tester ID - DBCBC W/PLT COUNT & AUTO [id number] 22:20:26 Test Item Value Reference Range Interpretation Comments WHITE BLOOD CELL COUNT (BEAKER) 6.6 K/ L 3.5-10.5 (test code = 775) RED BLOOD CELL COUNT (BEAKER) 4.04 M/ L 4.63-6.08 L (test code = 761) HEMOGLOBIN (BEAKER) (test code = 10.2 GM/DL 13.7-17.5 L 410) HEMATOCRIT (BEAKER) (test code = 34.0 % 40.1-51.0 L 411) MEAN CORPUSCULAR VOLUME (BEAKER) 84 fL 79-92 (test code = 753) MEAN CORPUSCULAR HEMOGLOBIN 25.2 pg 25.7-32.2 L (BEAKER) (test code = 751) MEAN CORPUSCULAR HEMOGLOBIN CONC 30.0 GM/DL 32.3-36.5 L (BEAKER) (test code = 752) RED CELL DISTRIBUTION WIDTH 19.1 % 11.6-14.4 H (BEAKER) (test code = 412) PLATELET COUNT (BEAKER) (test 116 K/CU MM 150-450 L code = 756) MEAN PLATELET VOLUME (BEAKER) 10.0 fL 9.4-12.4 (test code = 754) NUCLEATED RED BLOOD CELLS 1 /100 WBC 0-0 H (BEAKER) (test code = 413) NEUTROPHILS RELATIVE PERCENT 66 % (BEAKER) (test code = 429) LYMPHOCYTES RELATIVE PERCENT 19 % (BEAKER) (test code = 430) MONOCYTES RELATIVE PERCENT 11 % (BEAKER) (test code = 431) EOSINOPHILS RELATIVE PERCENT 1 % (BEAKER) (test code = 432) BASOPHILS RELATIVE PERCENT 2 % (BEAKER) (test code = 437) NEUTROPHILS ABSOLUTE COUNT 4.40 K/ L 1.78-5.38 (BEAKER) (test code = 670) LYMPHOCYTES ABSOLUTE COUNT 1.27 K/ L 1.32-3.57 L (BEAKER) (test code = 414) MONOCYTES ABSOLUTE COUNT (BEAKER) 0.70 K/ L 0.30-0.82 (test code = 415) EOSINOPHILS ABSOLUTE COUNT 0.05 K/ L 0.04-0.54 (BEAKER) (test code = 416) BASOPHILS ABSOLUTE COUNT (BEAKER) 0.12 K/ L 0.01-0.08 H (test code = 417) IMMATURE GRANULOCYTES-RELATIVE 1.50 % 0.00-1.00 H PERCENT (BEAKER) (test code = 2801) [id number] 22:20:10 Test Item Value Reference Range Interpretation Comments PARTIAL THROMBOPLASTIN TIME 24.0 seconds 22.5-36.0 (BEAKER) (test code = 760) PROTHROMBIN TIME/[id number] 22:19:31 Test Item Value Reference Range Interpretation Comments PROTIME (BEAKER) (test code = 14.9 seconds 11.9-14.2 H 759) INR (BEAKER) (test code = 370) 1.24 <=5.90 RECOMMENDED COUMADIN/WARFARIN INR THERAPY RANGESSTANDARD DOSE: 2.0 - 3.0 Includes: PROPHYLAXIS for venous thrombosis, systemic embolization; TREATMENT for venous thrombosis and/or pulmonary embolus.HIGH RISK: Target INR is 2.5-3.5 for patients with mechanical heart valves.RAD, CHEST, 1 VIEW, NON [id number] 19:43:00REFERRING MD: CHERELLE SALVADOR Reason for exam:->[facility] : 1955 Sex: MFINAL REPORT Exam: RAD, CHEST, 1 VIEW, NON DEPTDate: 09/05/2022 7:43 PM Indication:infectionComparison: Chest radiograph August 23, 2022. IMPRESSION: Lines/Tubes:None Lungs and Pleura :The lungs are well inflated. No focal consolidation or pulmonary edema. Trace bilateral pleural effusions. No pneumothorax. Heart/Mediastinum:The cardiomediastinal silhouette is normal in size and contour. Bones/Soft Tissues: No acute osseous abnormality. Upper abdomen: Unremarkable. Signed: Estella Colindres MDReport Verified Date/Time: 09/05/2022 19:43:50 Electronically signed by: ESTELLA COLINDRES MD on 307:43 PMTACROLIMUS [id number] 13:18:05 Test Item Value Reference Range Interpretation Comments TACROLIMUS BLOOD 7.5 ng/mL 10.0-20.0 L Test perfor med on [employer] (BEAKER) (test code Architec t Immunoassay = 657) system with Chemiluminescen t Microparticle I mmunoassay (CMIA) technolo gy. Software Quality Tester ID - ADMINCOMPREHENSIVE METABOLIC [id number] 10:35:04 Test Item Value Reference Range Interpretation Comments TOTAL PROTEIN 5.8 gm/dL 6.0-8.3 L (BEAKER) (test code = 770) ALBUMIN (BEAKER) 2.7 g/dL 3.5-5.0 L (test code = 1145) ALKALINE 395 U/L 40-150 H PHOSPHATASE (BEAKER) (test code = 346) BILIRUBIN TOTAL 2.5 mg/dL 0.2-1.2 H (BEAKER) (test code = 377) SODIUM (BEAKER) 135 meq/L 136-145 L (test code = 381) POTASSIUM (BEAKER) 4.9 meq/L 3.5-5.1 (test code = 379) CHLORIDE (BEAKER) 99 meq/L 98-107 (test code = 382) CO2 (BEAKER) (test 28 meq/L 22-29 code = 355) BLOOD UREA 6 mg/dL 7-21 L NITROGEN (BEAKER) (test code = 354) CREATININE 0.66 mg/dL 0.57-1.25 (BEAKER) (test code = 358) GLUCOSE RANDOM 127 mg/dL 70-105 H (BEAKER) (test code = 652) CALCIUM (BEAKER) 8.5 mg/dL 8.4-10.2 (test code = 697) AST (SGOT) 38 U/L 5-34 H (BEAKER) (test code = 353) ALT (SGPT) 58 U/L 6-55 H (BEAKER) (test code = 347) EGFR (BEAKER) 103 Interpretatio n of eGFR (test code = 1092) mL/min/1.[address] age Description sq m Result G1 Shahnaz l or [...] not appl icable for dialysis patien ts Software Quality Tester ID - [id number] 10:35:04 Test Item Value Reference Range Interpretation Comments MAGNESIUM (BEAKER) (test code = 1.5 mg/dL 1.6-2.6 L 627) Software Quality Tester ID - [id number] 10:35:04 Test Item Value Reference Range Interpretation Comments PHOSPHORUS (BEAKER) (test code = 2.6 mg/dL 2.3-4.7 604) Software Quality Tester ID - JSBILIRUBIN, [id number] 10:35:04 Test Item Value Reference Range Interpretation Comments BILIRUBIN DIRECT (BEAKER) (test 1.7 mg/dL 0.1-0.5 H code = 706) Software Quality Tester ID - JSCBC W/PLT COUNT & AUTO [id number] 10:27:24 Test Item Value Reference Range Interpretation Comments WHITE BLOOD CELL COUNT (BEAKER) 7.7 K/ L 3.5-10.5 (test code = 775) RED BLOOD CELL COUNT (BEAKER) 4.13 M/ L 4.63-6.08 L (test code = 761) HEMOGLOBIN (BEAKER) (test code = 10.6 GM/DL 13.7-17.5 L 410) HEMATOCRIT (BEAKER) (test code = 35.2 % 40.1-51.0 L 411) MEAN CORPUSCULAR VOLUME (BEAKER) 85 fL 79-92 (test code = 753) MEAN CORPUSCULAR HEMOGLOBIN 25.7 pg 25.7-32.2 (BEAKER) (test code = 751) MEAN CORPUSCULAR HEMOGLOBIN CONC 30.1 GM/DL 32.3-36.5 L (BEAKER) (test code = 752) RED CELL DISTRIBUTION WIDTH 19.0 % 11.6-14.4 H (BEAKER) (test code = 412) PLATELET COUNT (BEAKER) (test 117 K/CU MM 150-450 L code = 756) MEAN PLATELET VOLUME (BEAKER) 10.1 fL 9.4-12.4 (test code = 754) NUCLEATED RED BLOOD CELLS 1 /100 WBC 0-0 H (BEAKER) (test code = 413) NEUTROPHILS RELATIVE PERCENT 69 % (BEAKER) (test code = 429) LYMPHOCYTES RELATIVE PERCENT 12 % (BEAKER) (test code = 430) MONOCYTES RELATIVE PERCENT 11 % (BEAKER) (test code = 431) EOSINOPHILS RELATIVE PERCENT 5 % (BEAKER) (test code = 432) BASOPHILS RELATIVE PERCENT 2 % (BEAKER) (test code = 437) NEUTROPHILS ABSOLUTE COUNT 5.32 K/ L 1.78-5.38 (BEAKER) (test code = 670) LYMPHOCYTES ABSOLUTE COUNT 0.95 K/ L 1.32-3.57 L (BEAKER) (test code = 414) MONOCYTES ABSOLUTE COUNT (BEAKER) 0.83 K/ L 0.30-0.82 H (test code = 415) EOSINOPHILS ABSOLUTE COUNT 0.36 K/ L 0.04-0.54 (BEAKER) (test code = 416) BASOPHILS ABSOLUTE COUNT (BEAKER) 0.14 K/ L 0.01-0.08 H (test code = 417) IMMATURE GRANULOCYTES-RELATIVE 1.60 % 0.00-1.00 H PERCENT (BEAKER) (test code = 2801) TACROLIMUS [id number] 12:37:22 Test Item Value Reference Range Interpretation Comments TACROLIMUS BLOOD 6.1 ng/mL 10.0-20.0 L Test perfor med on [employer] (BEAKER) (test code Architec t Immunoassay = 657) system with Chemiluminescen t Microparticle I mmunoassay (CMIA) technolo gy. Software Quality Tester ID - ADMINCOMPREHENSIVE METABOLIC [id number] 11:08:08 Test Item Value Reference Range Interpretation Comments TOTAL PROTEIN 5.7 gm/dL 6.0-8.3 L Specimen sligh tly (BEAKER) (test hemolyzed code = 770) ALBUMIN (BEAKER) 2.7 g/dL 3.5-5.0 L Specimen sl ightly (test code = 1145) hemolyzed ALKALINE 279 U/L 40-150 H PHOSPHATASE (BEAKER) (test code = 346) BILIRUBIN TOTAL 1.5 mg/dL 0.2-1.2 H Specimen sli ghtly (BEAKER) (test hemolyzed code = 377) SODIUM (BEAKER) 135 meq/L 136-145 L (test code = 381) POTASSIUM (BEAKER) 4.2 meq/L 3.5-5.1 Specimen slightly (test code = 379) hemolyzed CHLORIDE (BEAKER) 103 meq/L 98-107 (test code = 382) CO2 (BEAKER) (test 24 meq/L 22-29 code = 355) BLOOD UREA 5 mg/dL 7-21 L NITROGEN (BEAKER) (test code = 354) CREATININE 0.60 mg/dL 0.57-1.25 Specimen slight ly (BEAKER) (test hemolyzed code = 358) GLUCOSE RANDOM 92 mg/dL 70-105 (BEAKER) (test code = 652) CALCIUM (BEAKER) 7.9 mg/dL 8.4-10.2 L (test code = 697) AST (SGOT) 27 U/L 5-34 Specimen slight ly (BEAKER) (test hemolyzed code = 353) ALT (SGPT) 41 U/L 6-55 Specimen slight ly (BEAKER) (test hemolyzed code = 347) EGFR (BEAKER) 106 Interpretatio n of eGFR (test code = 1092) mL/min/1.[address] age Description sq m Result G1 Shahnaz l or [...] not appl icable for dialysis patien ts Software Quality Tester ID - [id number] 11:03:50 Test Item Value Reference Range Interpretation Comments MAGNESIUM (BEAKER) 1.3 mg/dL 1.6-2.6 L Specimen slightly (test code = 627) hemolyzed Software Quality Tester ID - [id number] 11:03:50 Test Item Value Reference Range Interpretation Comments PHOSPHORUS (BEAKER) 3.2 mg/dL 2.3-4.7 Specimen slightly (test code = 604) hemolyzed Software Quality Tester ID - MARCOBILIRUBIN, [id number] 11:03:50 Test Item Value Reference Range Interpretation Comments BILIRUBIN DIRECT 0.8 mg/dL 0.1-0.5 H Specimen sl ightly (BEAKER) (test code = hemoly zed 706) Software Quality Tester ID - MARCOCBC W/PLT COUNT & AUTO [id number] 10:43:03 Test Item Value Reference Range Interpretation Comments WHITE BLOOD CELL COUNT (BEAKER) 9.4 K/ L 3.5-10.5 (test code = 775) RED BLOOD CELL COUNT (BEAKER) 3.93 M/ L 4.63-6.08 L (test code = 761) HEMOGLOBIN (BEAKER) (test code = 10.2 GM/DL 13.7-17.5 L 410) HEMATOCRIT (BEAKER) (test code = 33.6 % 40.1-51.0 L 411) MEAN CORPUSCULAR VOLUME (BEAKER) 86 fL 79-92 (test code = 753) MEAN CORPUSCULAR HEMOGLOBIN 26.0 pg 25.7-32.2 (BEAKER) (test code = 751) MEAN CORPUSCULAR HEMOGLOBIN CONC 30.4 GM/DL 32.3-36.5 L (BEAKER) (test code = 752) RED CELL DISTRIBUTION WIDTH 19.2 % 11.6-14.4 H (BEAKER) (test code = 412) PLATELET COUNT (BEAKER) (test 127 K/CU MM 150-450 L code = 756) MEAN PLATELET VOLUME (BEAKER) 10.0 fL 9.4-12.4 (test code = 754) NUCLEATED RED BLOOD CELLS 0 /100 WBC 0-0 (BEAKER) (test code = 413) NEUTROPHILS RELATIVE PERCENT 64 % (BEAKER) (test code = 429) LYMPHOCYTES RELATIVE PERCENT 13 % (BEAKER) (test code = 430) MONOCYTES RELATIVE PERCENT 13 % (BEAKER) (test code = 431) EOSINOPHILS RELATIVE PERCENT 6 % (BEAKER) (test code = 432) BASOPHILS RELATIVE PERCENT 2 % (BEAKER) (test code = 437) NEUTROPHILS ABSOLUTE COUNT 6.06 K/ L 1.78-5.38 H (BEAKER) (test code = 670) LYMPHOCYTES ABSOLUTE COUNT 1.22 K/ L 1.32-3.57 L (BEAKER) (test code = 414) MONOCYTES ABSOLUTE COUNT (BEAKER) 1.25 K/ L 0.30-0.82 H (test code = 415) EOSINOPHILS ABSOLUTE COUNT 0.56 K/ L 0.04-0.54 H (BEAKER) (test code = 416) BASOPHILS ABSOLUTE COUNT (BEAKER) 0.16 K/ L 0.01-0.08 H (test code = 417) IMMATURE GRANULOCYTES-RELATIVE 2.00 % 0.00-1.00 H PERCENT (BEAKER) (test code = 2801) Tissue [id number] 13:46:09 Test Item Value Reference Range Interpretation Comments Case Report (test code Surgical Pathology = 104) Report Case: [id number] Authorizing Provider: Shamar Michaels Jr., MD Collected: 08/17/2022 08:27 PM Ordering Location: [facility] Received: 08/18/2022 09:03 AM PERIOPERATIVE SERVICES Pathologist: Denise Martin MD Specimens: A) - Lymph Node, periportal lymph node B) - Liver, SEMINOLE LIVER WITH GALLBLADDER, FOR BIOBANKING C) - Gallbladder, DONOR GALLBLADDER DIAGNOSIS (test code = [id number] 3220) uZzEwMzNcZnRuYmpcdWMxIH tccnRmMVxlcGljMTAyMDVcY G4voLfdyYs2yAtkVWJmtaE2 vEZgOEhnr6odJZY7t6ddrfa qDYDxEWsjJc5ikTBhwVuyKf KeQEBoTBd8iJ99EYPtnR5lm SFgZUk8BOKitQJxukSiXaKh TAQouCKxvSH0RBBsXE9uoyd hSCakPMksQEWuctC4TXPhnE NiE9DzKXAbLH8klkpjXOA6Y JibPLCoOMX1PcYyJJCuo0Jx kol1FaHkmPDtLQmqpMOfbcs vxzLjMXUpMKUKVORIVK4PYF QXZNwSZTHBHH4MUCRdLWFYB 7bBSB8EQFPgggVgOC6mLMLm cS2iwCBaUgUveGlyQGh0sBN jOA8lEZUzSZQxPCxaQJUewr zqIPMqPh0lQRjAEsXGURyDJ XxnI6SADYFTMCYPPRKsXSVO UExBTlQsIFRPVEFMIEhFUEF FZJOGP35OLJXcxmDaBKHgux Dmi4LjgmnxeCuhya9sFV9eU O5vN6Nlbp9wzFmikwtgq1Kk Y6GoITAyBnysbp9skVOyuFJ lESYrLlKzWT9iAOqgzF8ssp WyGURprTPzsTTtzBnvLH9vE PBsUWvqv8VrqRMppIL9HNNm vyUuQE0qHWCek6ykpAIqPOs zvME0n0JtzCw3bDEeHHKqbg Nmal2kWMRdIWIgxQzwdDVyA LCjoSUtn5AuBj5zqDmroYxz yxNMUETyTRTfoYX5wHNgBAQ 5IHdlcmUgaWRlbnRpZmllZF ixJHBaYBLUx9L0JDfyiTMnL KQcHMqhhTayN1xkyQ7fkTJe kYr4MWFuy63lBgQpVFGlIP9 xJQ9hnBQrSbxmNMVqmLD8cI vseoByco9ltODnrhQ4pB0nV HBhclxmaTAgLSBNaWxkIHN0 HRB8u9Oes0hmOYHdBOEMKUA oHEBqgYtna28jHLUjBPHrkU 9vcPNkb8vqXPYcEY94jCAkx GxlIGJpbGUgZHVjdCBjeXN0 cyBccGFyXHBhciBDIEdBTEx YTDJUNWLRXLLJBB0WCEFLP3 IRS2PJAOwaAPMtirNixTCsa XNlIHBhcGlsbGFyeSBoeXBl qePzFSElZLH9tHXlMKVeqe0 ueHYhR9exnTLrnDH9gJKds0 xwYXJccGFyfXtccnRmMVxzc 6YoRSdyATPjOY8nbMvrIUMp FI6oOPGbY8dbtT4bxdz1WzH eSTSbYeC9BPAqxkA5Kgq9HJ OuOQxtv3mnv2NtIFOdUXq7u WpoJhQkBEGiy1efedVzAtTl GRZqZYVqHVKsfDWtO809k9r yx6imyvEgjTG8VVLeIDJ4DZ awweFbmrA1ZQdieUArQnY3E DtccmVkMFxncmVlbjBcYmx1 LSTxT205IEH7sCdjf4eiHQF 2BCSvYFCaAjIgRr4tgMXqR8 72AAKiFYRMSMHuiLj2ERZmq oKubqJueMHOz224J709h4ec XKMkmfOvbYcCvwbpm8clJ44 9XHBhcGVydzEyMjQwXHBhcG DneQQ9PNEgMP9zfacqNMenX YyvMYCxiaS0WSPoqHYjN5Xe JWSzZB2aubibUDE5BEeyTRJ rFYP4VwHuEWYtl5Irulb9Zn Vxqb6cuf12ZUO4b1VlaVoeD BK3MAN5RqTxQi0hvUQdYBUx EN3kDuTiySLrZTQvrl49pHt vVGacZRA1SSFlksBgs9Jpy6 ocDhOkcxJgQ6tzL6JdSLZtO UZuKWPoNeJtxqCjj7Rmo9Ep uHVhjPi0o0ogBXOqQJXsgVp ip7fxGPU1JSRjwVGbI6xxjP 1dLVTmIR8ljpyvg1mbHNdjP OrmTMWxhWI6yeC5ADFnsAQa X8MqxG5uMJCkTQocDAHriey 9XsRnCd9qhJHinNzyWAbqQf twYWdlXHBnbmNvbnRccGduZ GVjXHBsYWluXHBsYWluXGYw XGZzMjRccWxcbGFuZzEwMzN caGljaFxmMVxkYmNoXGYxXG bcI0bfQiBhGlBhUva4KAGlp RElOPPaHhl9PQLnfYOcZMCU bWxttL5nTLUdoWazjK3paYW 6XTBnwaJenOBQfA3lJMRVvY 9rRcT9RJAzDyl2JCH9OnVbq GFyfX0= COMMENT (test code = t2bksUGsUUIwnEGgTLKqSIe 3359) bibWoZOXnsRBvC9MkicvdUQ szWN9uEP9drBswvSCqzIKuP QGfQpTbp2xjt842nTMxz0vz YOCXuohloDc7qGzuF24ub5Z 9YsxcM49yeSHcQBV6VMCaSF IaqELdLLMoWIT1YGMqwVIsW 3qlKUCfFB1vbepxIHujFKvr HXScoEK0GHUurQElN3OdSKI rSZogSLHqfmg3KzBqVc1jjQ VyeTcyMFxwYXJkXHBsYWluX GUbZgJfI0MwIPR1TLYsSR0o z9TcorRxlpNaLK94AHMkfjJ gf8khPYIcEKCovniop7AeOO T7KZZfMKDZHYHld40iQO8zx VBsC82tIeYfGB3uHZBqsuNK iGZviMC4TXDgUTVdDgluCSG ccGFyZFxwYXJ9 CPT Code(s) (test code c7uvyXRbRFAzqIOvPAYhGDq = 9707) xbpHbCCPekCLhT5YdidnwJX skQQ8gLI6gyMvxsGJyoOHyV GUpFiCew9axb061oNNqm6ls AMBRckduoNl0eXdyK41wh6T 8QlvkW86hrLSpMJL5FFBlYI ZysRYrRFHsLAU5SZZnyQJcT 9ahLICoOK5pobdoYSjyXArk HCJyrZR0IZCzrBReL7EvKQT gLGkcLISmpse9IyTbZg8xsG VyeTcyMFxwYXJkXHBsYWluX GZzMjAgODgzMDlccGFyIDg4 QqK8KSHkkeQ2ZKRjBAcbZKL bPSrsAQE7PxxhGTUeBQtkMF AeyQXuESr9TpSdrKTasJDcz Q== GROSS DESCRIPTION o6yauWHlPFPbtHDRXNJbDEI (test code = mQQ0ucIdzrQl9fApbRKLyro [id number]) I4qODzCKgio0tgXID8f0rmn hOGRajlHXCdPD6tWObpHCSy ZY6vWdTyNQKgRkLoUQYbyOZ elgDdSgHgCPZduZDmxCV2NK PfLT4wzlnfYQizELomXIMvr tP0PZQqlGIhB8IlNYPiKX1g nmvpFFN6CIIFWjftFu6bsHI ibHtcZjFcZmNoYXJzZXQwXG WclUupNECnDYy8bV6BTfnlN YK3UYKKGispBinwgSomb4Vg dCBcXHNnIFxcaWQgNTEwMDA wGJeyEtLMNoXvXhO2ZQseJx s3GxA1YCx1XZJVOWNgBPYyL MTpCRL0FHp1TDLwRR0wKUfc rZEwAZhfQwtbTNjnY325VMt fPFDeE2FfD5AsKXqzIuZgOP jwBEHmNUByWSleSKCvR2TNG ITxHMM6QvS1RjNdYGu1VSqa B1DKGWSsBMZbTel8CLk3TlT 0MLh0JPBFXh6qYwe6UCI8CU F3QAE1EGe7YUhnaJQqKGhij 4OsFaUoBXAtPUohgfM6LRIo wfGqQUognFosjD5sEzNvCfP SWiGBzQ7gqYFMp7MjROMrdo MXLnxiGYCyPC2FTJEaXVmxO KZlDcDppYOzX4hwKNOjD65p z5HRe9MmSH6WPKd9loGqdyt xcM4qYRVjxhBpj6AoJZzjoA ljWHNhMzAgDQpcZnMyMCBUa TJgs7CoZ3teDG2eeBPpmoCf DRz4XDJmkG2kKq4ukUHnzA7 jpFZzOBheRVR8nERzTEYxAA WjKCTwUK24Z4XotuFwJOzcU TD2CLQpLjDegPF4wVxjDmc0 mJVzSY4ePUBtQGUeDIGtb78 ftLR8aoTdIvOiJUQmksezER Dap9V4uZ5iCL5tPRjvqIrts 9m3YQFtWJNvUdy7lOHaBSMt tNY6YGNym8Q1OLE1hROoZNF 6eRHwzyNjEL3hOKZjyAPtuq nbkJLwi1GyiQ9fDVOmOIB3A AFvQFC5AUMoYZLjqU6yZEUp UEYpfKNhiZ9ukuHudwJyeQS lO6MyZEEvaaJfx8YbcCn5kC XkWGEnyXrsQRs0GTWqRONuM h1VNVSikSALGEV7TL1nQFtl BTMlK2EjH3QfnfR6XRAqzgB LMojmQkeofVguj7ZdhTQoNV NnIFxcaWQgNTEwMDIgXFxkY zKXAfRzPkC7NPhgGxx2SaY5 YMv4UKDCGxNePoMtNvWzDHl 3KXQxZAy2UDb3MNlHRpZ0VD d5UrciDjPjEVL4WaMcCQj7E DIgXFxzcyAzIFxcZmwgXFxu Q45ewZQkBUquJdLfCYrgiRy cZEFrHVZ2TZ9UDZOyDtVvQj 7pVFk2MXYhnDAtFG0RSCUyf tFbEDbyxNtzuV3vmGVtF8du ZnMyMlxlcGljTmVzdERvYzE gDQpcbHRycGFyXGxpbjBccm euBLhkRlPpYNGqoEWKm0NsG CANClxmczIwIFRoZSBzcGVj nA2cfpInilTfZHHupNCsDOR fyaGrd1GmGArqtaFlVMFhsD VkIHdpdGggdGhlIHBhdGllb lFbbiJeFM0hPEVDRb3cKJ6g WIZewJPacjn8DFGzUOKqChf 3RMogKDCoARTkAz79VOqqBP 3yTBX9BfLnqBHdYAX4OAzyW RLghCFvqZThqsKfsFHhTL79 QiJKaSPqRKR7RQFlLNJjW5B ilZZsJQWaVJQzqGFbYE00BH mkCMO1LFRuE91hTOWymnTLT wneEeAjYNQmG9tyFrKrQTro kBBoJY8QFIphOSRvbAM9eVR sbUYnWSXsvFzkCXAjPCk3Oi Pxf1giDWPaZVWwrOWpwVY0g rEluy91gHHlRXMqUURjaRVu loLmfmAwcXUuvq8geb3upWr skhM9rLNqlMela6A6TUvzgB rzCswicr96uqIaWIY1KZPfH FRoZSBsaXZlciBpcyBzZXJp XPsmnRCnFFW2gA2qGSKdyW6 pfnF6IJJlSTXbv5XtnS1usG JtdB4nD2AoDfRsFWMozMIpz j65whKwlXjpECJjF8nzuEcl IHNwYWNlIHdpdGhpbiBzZWd yYL39QOtwkKVmm1WtoG3zGD ImUvP7HXLpNYG5VSHaQgXad C3bCMllmDqnnsGkTBztUR49 WJJzDZ8juxG4NGhcT8SiTN1 hhOhgGWDpTSm7RfHvhuUwJJ Gex33zmAOxiVYbcsMsLfduN DYzQHTsuCDqaoxdRU25GIVx WEitIKxoXOE4KWE5LPOsrVJ cs8lule4dYEcvlGuizmYnPP mpNM71VACiYPZePVFlGHplU YOcR1ZlHZ2wvYmhZEJqDEx8 NnRhbiwgaWxsLWRlZmluZWQ gbWFzcyBtZWFzdXJpbmcgMS 4yIHggMSBjbSBvbiBjdXQgc 3AqWrUcWH4mYDhwkTkwweJu NWbkKQ63HTNXWFE3aXZjAOF hjwOjSJrdGIPrEJI2VqBsDO pnDLV9IO4lvO5csrExHVI6F xDyYObhXDL6XB9gLAxxdW6a BKJbgaYbUMaab1ayztGsJEZ foHFxpxceVC24UNagLA81KQ VtHRYtboUmbVVqb0CkSvWhF L1uTTOnQOJzHT9cbU9wyfet uRm4YQApqAPoPK3ekCehKOR cyuL9IMiow1iwoQyoLYLhAA e7WfHjtyW3qCEiWHioriDmC QEsYbjxPVM9KQZcEKFfpDCk iUvnMCIei2W2lTSqEDZaymo pgfuuSuVmqRYoFoZbzK1iQL 74GZAbWKV8iMMkCDNtYfXwv UYvv5EdxUWpKpMXiA4vqPRn z9XejuOczqWeov27LGtySU4 6cJNfTVLukL5rsEanIAbdpV XmEpgpIVThVDgxkJDkKW0ZP GhlIGdhbGxibGFkZGVyIHNl hq3cENTahwSiueQgezr6NJZ gJBUyFug6hKDcLGVdlP0kuH qjGGTnmrVkIVTgGZGiWK0iH LMqfTO1fPFiSIPxoYWmoG0p yIBby3WyGXytTA7qiHAoiiK aRY04MxOFyNUcR7UubEFmDF AfWJPdhBEyn9GrhcScHZVkH HJldmVhbCBhYnVuZGFudCwg aoehO731xjihK8EiZA6ikMf lVNTnKVg7EjZdfuLzmSeaTH M0nRSup5I0LSRmiNL9vIxfD YMkCTVkxDAwc4QdsXFlK4Cu ER5uwVkrBWVdYMk2CeMxmji uvzYirnR4nSptPH0zCNdlaF xfmDNirQHwm7WdLQ1qNEewu 1tthwMlZoLOlZAfv9ShrSG3 jYkdr06jd7BqmLCjEF4hOQN vOvOvrB7iRb4hY1Qae8KhlQ GiiL9xcmNszxBzoW4dqUghB GdhbGxibGFkZGVyLiBSZXBy DWHfieJmvBm7NFIvNKB5tL7 ymzEyuvYih4LwnXz1wBIoQf jxVNZoMErinLVlIZ9YM8Jtn KuqinWVh9HeEbpiBQSnFQcG TGfbVcabUTIooCW0XCQwTRM 3KFUghLrhbuPaFYMbcS2lZQ BlbiBmYWNlXHBhciANCkIyX AX0DbTwYZreDYG3VyKNdZH3 bBUep9FfH8Lwb8h5oUhvSTM dR08oryKuLRbkNSLgBQsUYB wzN1TmFS1lyFzvJZWgEJp4K lBxtrBfFQJwn72uc7n9wTzk DNVrZ53sbyGcN0nmQJKtLSa SYcl3NEAcJVRqLsx7ZjhiQy NyzzViPZ11HWCowyFgw6Rqz YrshvDel6HvfOy6PPBzgDUk DJ2KBrY4SMM5QzAuAAadRCW 4KtYOGYflZR43LBJduMOyzY 9uLCBlbnRpcmVseSwgYmlzZ MO6EXDetUJvBC2MONOxAyAm DVCvK8tcOIBkPK9KNyUgEeU UHWxzVQ32ZTMJPDdsw0hyzm ltBH81mGXbwRoROvxwiYwiR vNwjGWwTgP5XOUgvPXrDBL3 SR3bcGpoHSRfMWc1HWvxHWS tB7CoZ9KaJZcrLoBoMJddBE DaSYUpRBioURDpP3TIIQMrR AT1TiF6TiEgKLl4WAlaW0BS UKUwQQGwWas1FeLgGvY4PPj 4SDMAEj4vSqs4OGY1HEhlYC Z2IIr4KKtgrVOeHRxpz0RbF wPtTGEbRLqqqyC9YBKbsjIt c2JgNPVyQKSkW7glJaHdLYQ NClxmczIyIEMuIEdhbGxibG FkZGVyXHBhciANClxwYXJkI X0BEKCqJTuoMBo1uiUmRDKr VuYoDIChP90ku4WBh7LgIA3 ZDFw3yvHmpxdfxQ0vGLWmgq Lhb5XlSAngnDpuISEoFjGiO TtkSzFsJHIKtNNae4LwQ7cd OM8acQWepvMuGRa1IKBayE1 tOh8ihYRskS0mySWeQIiwED L5dEXfRRDuOBPvILLaXU27O 0DiubHiOPebYXK2QXHdTtPy eTF7gSofLtqrpFhflPYyODT iVrFkqmHbY06nh0ynvEYlr4 FkACLkpnM5gW35a2o1UZraG 7jfUZYbSFInP56dNApimQrr mYZzWGQuUS5sFAG0fqhoTxO 0ItDiqSRzHmHxjAYlGgYpX9 7wl7l6dPJvCMCbuLMihMWch BX0dNFrOPBcwW7iHQVzSAHp PTEdf9JcbLFngJKrmFbsJQB 3FrFnIFqgPJS5KF8rd7y4cI IbdJm3hQLjM0EaDWDeXBSlZ A5nICistL4mrpryM7IcvlCg T0ccKzLjmhFgrMavJLPgp62 dqPIcbfZ2xIAdNZSiZPK2nv QpDjDdB24lIJAYlOMfl7Egw 0PpLVmqEUSly311lJUwuiXh f8OcFQU7fIPbEAQetqTgSUF lSRDoQV9qPRDfL6xfpNxdYT W2B5UzuMzxcPfdiv0wLLSsy sAjm8UdcMNxizRgSsefBY2e IFRoZSBnYWxsYmxhZGRlciB oxlJijYVnHMHnqJ6tvxY4NG RkWPZovL7bFF20WCFgAMm1N BUiIBDuMhq1TtFwb97nK91j M9OcZYDsSAWlcB7ySIfhSww reMcjRvM2zESauUWqMO0uBT BObyBjYWxjdWxpIGFyZSBpZ MZpoQwmeGBnYoReIOsiUD81 H31jGRDjgaIkZINdpNxmMGY dRMk1DdKqr5mjFUBdAJR7pc LdIVQ5cOG5DGFiu8s5iJDej u55gTDmSXNxNSK7yKu3VFb8 AVGuZXTgBzq6oWGoOGYjeF9 tx5tyiLRvAWFow92nYxZpCS zsTRwjaXypvFryG0csMJVqK WypDJCxOuK3xjSkSdFpX35c UQBLTYFtNZAjpiGmcCi8IAW nUXQ5mH9zwkCezuAyo7EadH h5nNEqVjzbKGMwDMpfx0VgM TOoqWTAb0EbRS6STQHrsgRS MuEjD1Tey90oE44qOSdgSDG bPSrKDLpmW6taeFjbCBI4T7 BnpEJgL2jcSOxkpSGxKYebD R0vJfFxSBzrTTPhELiDInry T5NznGZwVXTgXFPvg4AwhEW xbEXdED2BCGRjhxAMXkbeTV YvIMXkmLOLq1YoHEUNXfYdE i6oQJYeCIREBUGNGvkcyKve QyLdoKSkCbX9ZASuvXQmFLI 2VB9eiGjaNKIqG9RrE6Sajg C7MGKkxoAKDwerYLGzEM1YX GZzMjIgDQp9 MICROSCOPIC r3xzbUDaGGVizBAxNSEjOCn DESCRIPTION (test code ixsPzIJPoaMBmW2KncksiIS = 3371) spBA5iEI4gePqulVUdzWLoP JNfZqAdc8htd352jCOny4ve RQJGrusgyKk0yBslH90vt5A 8ZrjsW99fiCVzLVD1ESVcRE RxhNCyBFVjBOM5MTIwrKRhL 8ioTRWmMJ9ydbhsJKjlZMev JAZxhWY2LNEdrZMqU2TvYUL dBZwsXYYxjmj8LuCxVi9viO VyeTcyMFxwYXJkXHBsYWluX YXzKtJaXAPzdJ6yOXhqLXGe X41oslRtGCUyAaduP0htNBN otcPjPHpyx9dkj5QbREVpkt 5kf4l6RWbwbYvfWRQpbS3vN VHqHJBiu85ikPFjl3FjjX3d KGAoKvQhwVH9vUttaXVoxL3 3cyBzbWFsbCBjZWxsIGNoYW 0yIC9xOCDTOlApzB3rkX8ic GmlyC0slQYugDZwyAPafFAi biBoaWdobGlnaHRzIHRoZSB tYIYaoSnovfr3MXDnn97cFZ 8bNXXiuWNmFZ2jPVI5ibZwJ ZZ4bLTiVJMvzTJksr1jMb2f FCskzP6mLWwpvWNuE5NvXYK qr5SbmW1aeOCmshChMJKcjz KyaN1bqKwkZVcye1qlmcOaG AGib6I1MR1mYJCjaTwryPgo yjSchPAzwpUhM5HnzyVuzQ6 9wmO6mBiwr6XmPRIgtHZsVs CniWnjpuVwLPV7EPYnLPUqw P98VFFmePeedKL5AIZzPPVx jCDjIrLyP1QyijSlgRYyzUB gv5G9iO4mCMabM1htX8HbNQ YqFPzufAkjc7QaUqDri7V8p GUuXHBhcn0= SPECIAL STUDIES (test m1khoQKbXLNbe7zmZTCbkMB code = 3376) uZzEwMzNcZnRuYmpcdWMxIH lrdtQiWGwxk9YtU7KsIjJqH FxhbnNpXGRlZmxhbmcxMDMz JUI0toAbUEBlYRerGDLwMZw hAh5jlULknClyTmDnMHXam0 osgqLYmlsbfHf3r5euQDWlO nO0cUGuYBcuZ7ezqrWkoTFt E8EfwSArbSj4g3cbRhUxUuM 0fLUsGCixK0nlarCzrOQyYP YdYSw3rA84YEIoxT7kfKNzW JvwsfKrDiJ1PIpxQQWjVyW2 QURjkYEdOVPlU4sjPNEtEOt nEEWgCQhziFZbGWR1rPjkg7 F4lQJohUIznDtvKpHxFvKzV tHYb2KeFLh1eJvqZ0LyFOLe DfU3oGOwOSNgNEszFDKpCQP jgbO1xUgclfObd11zoWMuGO YwXGZzMjBcbGkwXHJpMCBDb 4LjmFjvADH0jGw9uQpbPtta MGA0Crk5FD4bon49sct1qFw cHKGoajizHcR2SAioTYJlnp qxDEf3AKjiDPCvuKN1DMSqb OSjD6BjBQSqAB8frdd7YHC0 TLxkQWZrRmM4MMVgjCYwZRB psXooTXenz608XKW8AsRqBT 8uB3Nwk8K7cF3cgUZmMLDuw APjTrMqQGQmvs3leVVxRQak p3LjVRW0ojM4aKLdyPMvOBX yUV35Jkewk0YnIrqlf0SrP6 8voWD9EKdqm9uzPQ8yJnI5l pUjSMabg2lalT2xGkO1SZoe RO5bOD9lVTDfnE0urgllCQJ nYnJkcmhlYWRccGdicmRyZm 9oqRtvXJI4KQtyR3hbpC5cQ qE8BPfeS0oxjJ8vHDb0VXsr pEM1ZWItnV3qAJ6lnebga6z mXLmzLJvrBNHpbqW5qfT9ND PxzOGbS3SklR0fXJXcKA2oa qcds6maEJI5HTobYHJkDYO1 QbXaDNNew2Rdmoa6GbNtu0S avJRkKJytC49rd349LIIqmc LmS9ripBXlvuqsjMKezvluK GfftuL6LRYhXTOoSPzeAEOz XGZzMjJcbGFuZzEwMzNcaGl jaFxmMVxkYmNoXGYxXGxvY2 smIeRbF6FpDYOtGiTfJIieF FpynDEpxEPalBL4lM9eVW5d RVNzxRZbL3DlTMLjhgBelFL nOEC8gVNltRLrHR9nZGkunT Mlm2and3FtB0xmbJvfoCC4O F0sLIQrJPPaMYzym6XjcE3m LlxwbGFpblxmMVxmczIyXGx gjjiaFGIyBLvjO9fcGqLrVK WusTmrOOxjn5BiCFWjVLEkG kmmwrBtBOi8ssObIYEyuhqd EVChoOildU6eQrLnLbXuYvu gEQ1iAPMiO3dmiHOrNWAeIU EjQ0xxAjRzoJ0jeGqfUAgpE qMdEqXzPtZIn639yh5qLMQb nTPlrnMPiAKcjC9jGJthCRg nDXszeZDxBDmcn4fsZQIxd8 x9gNXbNOYzopXvr3waFQepm nHqHZXuuGMojRRsLXCic35h LKrcqAvbxFalIJVrx1EvbSl qu6NyAhQkMLpkm4XfN19fnF JvbCBzbGlkZXMgcnVuIGFsb 45jr5hrEHLpXiE0hVKrcRC4 nIUkpOWyu2UgkUduEUIwy3p gKUBayo9rrjtrrFGga8QzbN 5pbmcuIEludGVybmFsIHBvc 5j3bKBlLIMuJUShGJuhiOu3 KKKid839ka6veqA9mWIkMAL 2YWlsYWJsZSBhcmUgZXZhbH VhdGVkXHBsYWluXGYxXGZzM jJcbGFuZzEwMzNcaGljaFxm CRnaOtRdQAApLRzeR5tzIiO wR7LuZKObXbXqrTArC7dhiT FyXHBsYWluXGYxXGZzMjJcb GFuZzEwMzNcaGljaFxmMVxk ZzKoHBGeVQoyC8wdMiYhK0O yXGZzMjIgIFxwbGFpblxmMV xmczIyXGxhbmcxMDMzXGhpY 6ypCoEoBKPhjQumKHxdt1Fp SYNlLCVxHftwnnWcPNx2jjQ oXHBhclxwbGFpblxmMVxmcz LsJYexldzhMZFxDBziH3hdX mDgQYCvwNqsHLtyl2UbXBRg DSUaKtbivzQiKMlgiWKcl3i xz8LkK6aykTllrSB7CGLoY0 rcbAHedDT1HLL3qM2lUCbhg hBgJCSss4XnHTVaZZEtNgM3 zY2eHIS5UuQIpEezKEGeCGv uXGYxXGZzMjJcbGFuZzEwMz NcaGljaFxmMVxkYmNoXGYxX LcxF1qjEeToI8PyJGQxFrPl tDvbRJsaGRf9AfzeuRAhjae mMVxmczIyXGxhbmcxMDMzXG rhZ2klYvIhZXNvyCjsMQxxl 2NoXGYxXGNmMlxmczIyIHMg WUFcsGMuxCFBCM29RDLaTXM zyZawdO0gdSLDWIKlzsY8j4 U2GMpgQSBaHXt8CNxhdbKyO PIgtT2tPGIpGE4yTFe5acDv IZCfm3YnJY0vFXMxcJZsGBT 1XDUlk1MnK4Ppt4UgNSOaNN Dlhe7lwqSvXxOVePKvTOBua n76MTJoGW0hA3raEUQzZFXl nyNeaHNje3RhQHInsIK4cAV uYF9DWkKYq71sTNAaPYFJgz KdMGXkxFnmcAU6ufH0xA4zO iBUaGUgRkRBIGhhcyBkZXRl oe0ywlNmPCFuADSth2HorOT yhOZzawEcT1Exb8VvROSmqs 47JAbrqYGzxz52KA1eH7Zxe 4RyyM5qRDsqSVLft3AkzGLf cQRqBODin9FnQ8vbiissQUn tkYCajU2xBHEpQTp3OODyp5 DvXFHoo8TuCkBxhbIkYKRyT ZEyTGEpwK24MZD2lNxjyOnv ozUuMZ8qREQnheFrKBJrKCJ zhU0iDYokzhUdQVRiylI6v2 Y8KVmaHLGxpaLeSesjWQZ4m rBgffS9yZMpV8shgfeyLFte JNXid1VqjT8raGRWfNJvi8P hmXCccQYIuTUuKH0yifHjEV 5vGPJ1BZbsMBJHHULrHOllD FChKSU4PBnaCgcaXZM8keZg QUSww0LjFXgcN9sbS91clKx ujYj1eRVprMhwuBGsmWFbYT WupaU5e9O9QYWyn6QvshviN HBsYWluXGYyXGZzMjJcbGFu ZzEwMzNcaGljaFxmMlxkYmN zPVQbNVrgW7voEyAxXwIlQl gkYSN3gX== Gross assessment was [facility] performed at ([facility], code = 2777) Department of Pathology, [address] [place] [address], Technical component [facility] was performed at ([facility], code = 2778) Department of Pathology, [address] [place] [address], Professional component [facility] was performed at ([facility], code = 2779) Department of Pathology, [address] [place] [address], [facility] HospitalTISS[facility] [id number] 13:46:09Surgical Pathology Report Case: [id number] Authorizing Provider: Shamar Michaels Jr., MD Collected: 08/17/2022 08:27 PM Ordering Location: [facility] Received: 08/18/2022 09:03 AM PERIOPERATIVE SERVICES Pathologist: Denise Martin MD Specimens: A) - Lymph Node, periportal lymph node B) - Liver, SEMINOLE LIVER WITH GALLBLADDER, FOR BIOBANKING C) - Gallbladder, DONOR GALLBLADDER A. PERIPORTAL LYMPH NODE, EXCISION- One single benign lymph node (0/1) B. 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 Lymph NodeThe specimen is received in formalin labeled with the patient's name, date of , "lymph node" and consists of a single portion of yellow-scanlon fatty tissue with evidence of cautery measuring 1.5 x 1.5 x 0.5 cm. The specimen is bisected and submitted entirely as A1.B. LiverThe specimen is received in formalin labeled with the patient's name, MRN and "liver" is a 1236.4 gram, 24.5 x 15 x 8.5 cm liver explant. The attached gallbladder is 9.5 x 5 x 4 cm.The capsule is 10-brown and displays innumerable micro and macro nodules throughout with fibrous septae. The liver is serially sectioned to reveal a well-circumscribed,mucinous filled cystic space within segment 8 measuring 1.2 x 0.8 x 0.7 cm. Within segment 3, minute, green- scanlon lesion is identified measuring 0.7 cm in greatest dimension. Within segment 5, there is agreen-scanlon, ill-defined mass measuring 1.2 x 1 cm on cut surface. Within segment 4A, there is a green-scanlon to red-scanlon, ill-defined lesion measuring 0.7 x 0.5 cm, on cut surface. The remaining liver parenchyma is yellow-scanlon with innumerable, variably sized nodules ranging from 0.2 to 1.5 cm, with fibrous septae. Lymph nodes are not identified in the hilum.The gallbladder serosa is green-scanlon, smooth, unremarkable. A cystic duct lymph nose is not present. The gallbladder is opened to reveal abundant, viscous, green-scanlon bile, without calculi. The mucosa is green-scanlon, velvety, and without masses or lesions.. The wall thickness is 0.1-0.2 cm. No gross lesions are in the gallbladder. Intertype Operator sections are submitted.Section Code:B1: Bile duct and vascular margins, en faceB2-4: Cystic space within segment 8B5: Green-scanlon lesion within segment 3B6-7: Intertype Operator sections of liverB 8-9: Segment 5 lesion, entirely, [id number]: Segment 4A lesion, entirelyC. GallbladderThe specimen is received in formalin labeled with the patient's name, date of , "gallbladder" and consists of a previously incised (1 cm) gallbladder measuring 7.1 x 2.5 x 1.4 cm with a patent cystic duct. The serosa is purple-scanlon with multifocal areas of hemorrhage ranging in size from less than 0.1 to 0.3 cm. The serosa is smooth and otherwise unremarkable. A cystic duct lymph node is not identified. The gallbladder is openedto reveal abundant red-brown coagulated blood, filling the lumen. No calculi are identified. The mucosa is red-brown and trabeculated with innumerable white-scanlon, pinpoint lesions. The wall thickness is0.2 to 0.4 cm. Intertype Operator sections are submitted.Section codeA1: Cystic duct margin (blue), en faceA2: Gallbladder wall A-C. ES, [id number] in segment 5 (block 8 and 9) shows a grossly well-definedlesion measuring 1.2 cm which shows small cell change. CD34 immunohistochemical stain highlights thecapillarization and thickened trabecular pattern focally. Glypican-3 stain is negative in the lesional tissue. Reticulin stain again shows thickened trabecular pattern 3 t-4 cell layers thick. Overall supporting high-grade dysplastic nodule.The interpretation of this case included the use of immunohistochemistry or special stains.Control Slides Examined: In-house known positive controls were evaluated along with the test tissue. These control slides run alongside of the patients sample show appropriate staining. Internal positive and negative controls when available are evaluated Immunohistochemistry technical testing was performed at [facility], Pathology Laboratory where itwas developed and its performance characteristics were determined. It has not been cleared or approved by the U.S. Food and Drug Administration. The FDA has determined that such clearance or approval is not necessary. The test is used for clinical purposes. It should not be regarded as investigationalor for research. This laboratory is certified under the Clinical Laboratory Improvement Amendments of 1988 (CLIA-88) as qualified to perform high complexity clinical laboratory testing.[facility], Department of Pathology, [address] [place] [address], [facility], [address] [place] [address], Tel [phone]. Joseph Hospital, Department of Pathology, [address] [place] [address], OFZRRQBAPF [id number] 15:08:47 Test Item Value Reference Range Interpretation Comments TACROLIMUS BLOOD 11.3 ng/mL 10.0-20.0 Test perfor med on [employer] (BEAKER) (test code Architec t Immunoassay = 657) system with Chemiluminescen t Microparticle Immunoassay (CM IA) technology. Software Quality Tester ID - ADMINCOMPREHENSIVE METABOLIC [id number] 11:24:27 Test Item Value Reference Range Interpretation Comments TOTAL PROTEIN 4.9 gm/dL 6.0-8.3 L (BEAKER) (test code = 770) ALBUMIN (BEAKER) 2.5 g/dL 3.5-5.0 L (test code = 1145) ALKALINE 202 U/L 40-150 H PHOSPHATASE (BEAKER) (test code = 346) BILIRUBIN TOTAL 1.2 mg/dL 0.2-1.2 (BEAKER) (test code = 377) SODIUM (BEAKER) 138 meq/L 136-145 (test code = 381) POTASSIUM (BEAKER) 4.1 meq/L 3.5-5.1 (test code = 379) CHLORIDE (BEAKER) 106 meq/L 98-107 (test code = 382) CO2 (BEAKER) (test 24 meq/L 22-29 code = 355) BLOOD UREA 5 mg/dL 7-21 L NITROGEN (BEAKER) (test code = 354) CREATININE 0.58 mg/dL 0.57-1.25 (BEAKER) (test code = 358) GLUCOSE RANDOM 130 mg/dL 70-105 H (BEAKER) (test code = 652) CALCIUM (BEAKER) 7.7 mg/dL 8.4-10.2 L (test code = 697) AST (SGOT) 16 U/L 5-34 (BEAKER) (test code = 353) ALT (SGPT) 38 U/L 6-55 (BEAKER) (test code = 347) EGFR (BEAKER) 107 Interpretatio n of eGFR (test code = 1092) mL/min/1.[address] age Description sq m Result G1 Shahnaz l or [...] not appl icable for dialysis patien ts Software Quality Tester ID - MARCOBILIRUBIN, [id number] 11:17:40 Test Item Value Reference Range Interpretation Comments BILIRUBIN DIRECT (BEAKER) (test 0.7 mg/dL 0.1-0.5 H code = 706) Software Quality Tester ID - [id number] 11:17:39 Test Item Value Reference Range Interpretation Comments MAGNESIUM (BEAKER) (test code = 1.1 mg/dL 1.6-2.6 L 627) Software Quality Tester ID - [id number] 11:17:39 Test Item Value Reference Range Interpretation Comments PHOSPHORUS (BEAKER) (test code = 2.3 mg/dL 2.3-4.7 604) Software Quality Tester ID - MARCOCBC W/PLT COUNT & AUTO [id number] 10:57:10 Test Item Value Reference Range Interpretation Comments WHITE BLOOD CELL COUNT (BEAKER) 10.9 K/ L 3.5-10.5 H (test code = 775) RED BLOOD CELL COUNT (BEAKER) 3.67 M/ L 4.63-6.08 L (test code = 761) HEMOGLOBIN (BEAKER) (test code = 9.7 GM/DL 13.7-17.5 L 410) HEMATOCRIT (BEAKER) (test code = 31.0 % 40.1-51.0 L 411) MEAN CORPUSCULAR VOLUME (BEAKER) 85 fL 79-92 (test code = 753) MEAN CORPUSCULAR HEMOGLOBIN 26.4 pg 25.7-32.2 (BEAKER) (test code = 751) MEAN CORPUSCULAR HEMOGLOBIN CONC 31.3 GM/DL 32.3-36.5 L (BEAKER) (test code = 752) RED CELL DISTRIBUTION WIDTH 19.0 % 11.6-14.4 H (BEAKER) (test code = 412) PLATELET COUNT (BEAKER) (test 108 K/CU MM 150-450 L code = 756) MEAN PLATELET VOLUME (BEAKER) 10.5 fL 9.4-12.4 (test code = 754) NUCLEATED RED BLOOD CELLS 0 /100 WBC 0-0 (BEAKER) (test code = 413) NEUTROPHILS RELATIVE PERCENT 72 % (BEAKER) (test code = 429) LYMPHOCYTES RELATIVE PERCENT 10 % (BEAKER) (test code = 430) MONOCYTES RELATIVE PERCENT 11 % (BEAKER) (test code = 431) EOSINOPHILS RELATIVE PERCENT 4 % (BEAKER) (test code = 432) BASOPHILS RELATIVE PERCENT 1 % (BEAKER) (test code = 437) NEUTROPHILS ABSOLUTE COUNT 7.84 K/ L 1.78-5.38 H (BEAKER) (test code = 670) LYMPHOCYTES ABSOLUTE COUNT 1.05 K/ L 1.32-3.57 L (BEAKER) (test code = 414) MONOCYTES ABSOLUTE COUNT (BEAKER) 1.16 K/ L 0.30-0.82 H (test code = 415) EOSINOPHILS ABSOLUTE COUNT 0.40 K/ L 0.04-0.54 (BEAKER) (test code = 416) BASOPHILS ABSOLUTE COUNT (BEAKER) 0.11 K/ L 0.01-0.08 H (test code = 417) IMMATURE GRANULOCYTES-RELATIVE 3.50 % 0.00-1.00 H PERCENT (BEAKER) (test code = 2801) TACROLIMUS [id number] 14:02:08 Test Item Value Reference Range Interpretation Comments TACROLIMUS BLOOD 15.9 ng/mL 10.0-20.0 Test perfor med on [employer] (BEAKER) (test code Architec t Immunoassay = 657) system with Chemiluminescen t Microparticle Immunoassay (CM IA) technology. Software Quality Tester ID - ADMINCBC W/PLT COUNT & AUTO [id number] 11:59:36 Test Item Value Reference Range Interpretation Comments WHITE BLOOD CELL COUNT (BEAKER) 10.4 K/ L 3.5-10.5 (test code = 775) RED BLOOD CELL COUNT (BEAKER) 3.83 M/ L 4.63-6.08 L (test code = 761) HEMOGLOBIN (BEAKER) (test code = 10.4 GM/DL 13.7-17.5 L 410) HEMATOCRIT (BEAKER) (test code = 32.5 % 40.1-51.0 L 411) MEAN CORPUSCULAR VOLUME (BEAKER) 85 fL 79-92 (test code = 753) MEAN CORPUSCULAR HEMOGLOBIN 27.2 pg 25.7-32.2 (BEAKER) (test code = 751) MEAN CORPUSCULAR HEMOGLOBIN CONC 32.0 GM/DL 32.3-36.5 L (BEAKER) (test code = 752) RED CELL DISTRIBUTION WIDTH 18.8 % 11.6-14.4 H (BEAKER) (test code = 412) PLATELET COUNT (BEAKER) (test code 62 K/CU MM 150-450 L = 756) MEAN PLATELET VOLUME (BEAKER) 11.6 fL 9.4-12.4 (test code = 754) NUCLEATED RED BLOOD CELLS (BEAKER) 1 /100 WBC 0-0 H (test code = 413) (CELLAVISION MANUAL DIFF)2022-08-25 11:59:36 Test Item Value Reference Range Interpretation Comments NEUTROPHILS - REL 84 % (CELLAVISION)(BEAKER) (test code = 2816) LYMPHOCYTES - REL 4 % (CELLAVISION)(BEAKER) (test code = 2817) MONOCYTES - REL 4 % (CELLAVISION)(BEAKER) (test code = 2818) EOSINOPHILS - REL 3 % (CELLAVISION)(BEAKER) (test code = 2819) BASOPHILS - REL 1 % (CELLAVISION)(BEAKER) (test code = 2820) METAMYELOCYTES - REL 1 % 0-0 H (CELLAVISION)(BEAKER) (test code = 2821) MYELOCYTES - REL 3 % 0-0 H (CELLAVISION)(BEAKER) (test code = 2822) NEUTROPHILS - ABS 8.74 K/ul 1.78-5.38 H (CELLAVISION)(BEAKER) (test code = 2830) LYMPHOCYTES - ABS 0.42 K/ul 1.32-3.57 L (CELLAVISION)(BEAKER) (test code = 2831) MONOCYTES - ABS 0.42 K/uL 0.30-0.82 (CELLAVISION)(BEAKER) (test code = 2832) EOSINOPHILS - ABS 0.31 K/uL 0.04-0.54 (CELLAVISION)(BEAKER) (test code = 2834) BASOPHILS - ABS 0.10 K/uL 0.01-0.08 H (CELLAVISION)(BEAKER) (test code = 2835) METAMYELOCYTES - ABS 0.10 K/uL 0.00-0.00 H (CELLAVISION)(BEAKER) (test code = 2836) MYELOCYTES-ABS 0.31 K/uL 0.00-0.00 H (CELLAVISION)(BEAKER) (test code = 2837) TOTAL COUNTED (BEAKER) (test code 100 = 1351) MANUAL NRBC PER 100 CELLS 3 /100 WBC 0-0 H (BEAKER) (test code = 1353) WBC MORPHOLOGY (BEAKER) (test Normal code = 487) CLUMPED PLATELETS (BEAKER) (test Present code = 436) GIANT PLATELETS (BEAKER) (test Present code = 313) POLYCHROMATOPHILLIC RBCS(BEAKER) 2+ moderate (test code = 478) ANISOCYTOSIS (BEAKER) (test code 1+ few = 961) MICROCYTES (BEAKER) (test code = 1+ few 965) POIKILOCYTES (BEAKER) (test code 1+ few = 966) OVALOCYTES (BEAKER) (test code = 1+ few 477) LESLIE CELLS (BEAKER) (test code = 1+ few 474) ARTIFACT (CELLAVISION)(BEAKER) Present (test code = 3432) PLATELET CONCENTRATION Decreased (CELLAVISION)(BEAKER) (test code = 3438) Software Quality Tester ID - [id number] ID - rian Trammell comments: Slide comments: COMPREHENSIVE METABOLIC [id number] 11:56:21 Test Item Value Reference Range Interpretation Comments TOTAL PROTEIN 4.8 gm/dL 6.0-8.3 L (BEAKER) (test code = 770) ALBUMIN (BEAKER) 2.7 g/dL 3.5-5.0 L (test code = 1145) ALKALINE 147 U/L 40-150 PHOSPHATASE (BEAKER) (test code = 346) BILIRUBIN TOTAL 1.4 mg/dL 0.2-1.2 H (BEAKER) (test code = 377) SODIUM (BEAKER) 137 meq/L 136-145 (test code = 381) POTASSIUM (BEAKER) 3.4 meq/L 3.5-5.1 L (test code = 379) CHLORIDE (BEAKER) 104 meq/L 98-107 (test code = 382) CO2 (BEAKER) (test 23 meq/L 22-29 code = 355) BLOOD UREA 9 mg/dL 7-21 NITROGEN (BEAKER) (test code = 354) CREATININE 0.69 mg/dL 0.57-1.25 (BEAKER) (test code = 358) GLUCOSE RANDOM 83 mg/dL 70-105 (BEAKER) (test code = 652) CALCIUM (BEAKER) 7.8 mg/dL 8.4-10.2 L (test code = 697) AST (SGOT) 17 U/L 5-34 (BEAKER) (test code = 353) ALT (SGPT) 63 U/L 6-55 H (BEAKER) (test code = 347) EGFR (BEAKER) 102 Interpretatio n of eGFR (test code = 1092) mL/min/1.[address] age Description sq m Result G1 Shahnaz l or [...] not appl icable for dialysis patien ts Software Quality Tester ID - RODOBILIRUBIN, [id number] 11:52:28 Test Item Value Reference Range Interpretation Comments BILIRUBIN DIRECT (BEAKER) (test 0.7 mg/dL 0.1-0.5 H code = 706) Software Quality Tester ID - [id number] 11:52:23 Test Item Value Reference Range Interpretation Comments MAGNESIUM (BEAKER) (test code = 1.3 mg/dL 1.6-2.6 L 627) Software Quality Tester ID - [id number] 11:52:23 Test Item Value Reference Range Interpretation Comments PHOSPHORUS (BEAKER) (test code = 2.2 mg/dL 2.3-4.7 L 604) Software Quality Tester ID - BETYD, CHEST, 1 VIEW, NON [id number] 13:54:00REFERRING : CHERELLE SALVADOR Reason for exam:->S/p liver transplantShould this be performed at the bedside?->Yes [facility] : 1955 Sex: MFINAL REPORT CLINICAL HISTORY: S/p liver transplant TECHNIQUE: 1 view of the chest. COMPARISON: 08/22/2022 IMPRESSION: There are no focal infiltrates or effusions. The cardiomediastinal silhouette is magnified by technique. The osseous structures appear intact. Signed: Marycruz Barillas MDReport Verified Date/Time: 08/23/2022 13:54:19 Reading Location: [address] Reading Room OLIMUS [id number] 08:59:02 Test Item Value Reference Range Interpretation Comments TACROLIMUS BLOOD 10.5 ng/mL 10.0-20.0 Test perfor med on [employer] ([employer]) (test code Architec t Immunoassay = 657) system with Chemiluminescen t Microparticle Immunoassay (CM IA) technology. Software Quality Tester ID - AAHAMIDPOCT-GLUCOSE [id number] 08:36:24 Test Item Value Reference Range Interpretation Comments POC-GLUCOSE METER 89 mg/dL 70-110 : TESTED A T [facility] ([employer]) (test code = [place], 1538) 88[address]: Software Quality Tester/Techni zaire ID = [id number] for HIDA LGO, AGLAE Anaerobic [id number] 08:30:35 Test Item Value Reference Range Interpretation Comments Result (test code = No anaerobes isolated 6463-4) [facility] [id number] 08:30:35 Test Item Value Reference Range Interpretation Comments CULTURE (BEAKER) (test No anaerobes isolated code = 1095) BASIC METABOLIC [id number] 06:57:36 Test Item Value Reference Range Interpretation Comments SODIUM (BEAKER) 139 meq/L 136-145 (test code = 381) POTASSIUM 3.1 meq/L 3.5-5.1 L (BEAKER) (test code = 379) CHLORIDE (BEAKER) 107 meq/L 98-107 (test code = 382) CO2 (BEAKER) 23 meq/L 22-29 (test code = 355) BLOOD UREA 14 mg/dL 7-21 NITROGEN (BEAKER) (test code = 354) CREATININE 0.75 mg/dL 0.57-1.25 (BEAKER) (test code = 358) GLUCOSE RANDOM 95 mg/dL 70-105 (BEAKER) (test code = 652) CALCIUM (BEAKER) 7.5 mg/dL 8.4-10.2 L (test code = 697) EGFR (BEAKER) 100 Interpretatio n of eGFR (test code = [...] not appl icable for dialysis patien ts Software Quality Tester ID - [id number] 06:54:55 Test Item Value Reference Range Interpretation Comments MAGNESIUM (BEAKER) (test code = 1.5 mg/dL 1.6-2.6 L 627) Software Quality Tester ID - [id number] 06:54:55 Test Item Value Reference Range Interpretation Comments PHOSPHORUS (BEAKER) (test code = 2.2 mg/dL 2.3-4.7 L 604) Software Quality Tester ID - ADMINHEPATIC FUNCTION [id number] 06:54:55 Test Item Value Reference Range Interpretation Comments TOTAL PROTEIN (BEAKER) (test code = 4.9 gm/dL 6.0-8.3 L 770) ALBUMIN (BEAKER) (test code = 1145) 2.8 g/dL 3.5-5.0 L BILIRUBIN TOTAL (BEAKER) (test code 1.1 mg/dL 0.2-1.2 = 377) BILIRUBIN DIRECT (BEAKER) (test 0.4 mg/dL 0.1-0.5 code = 706) ALKALINE PHOSPHATASE (BEAKER) (test 94 U/L 40-150 code = 346) AST (SGOT) (BEAKER) (test code = 15 U/L 5-34 353) ALT (SGPT) (BEAKER) (test code = 90 U/L 6-55 H 347) Software Quality Tester ID - ADMINPROTHROMBIN [id number] 06:43:12 Test Item Value Reference Range Interpretation Comments PROTIME (BEAKER) (test code = 15.7 seconds 11.9-14.2 H 759) INR (BEAKER) (test code = 370) 1.34 <=5.90 RECOMMENDED COUMADIN/WARFARIN INR THERAPY RANGESSTANDARD DOSE: 2.0 - 3.0 Includes: PROPHYLAXIS for venous thrombosis, systemic embolization; TREATMENT for venous thrombosis and/or pulmonary embolus.HIGH RISK: Target INR is 2.5-3.5 for patients with mechanical heart valves.CBC W/PLT COUNT & AUTO [id number] 06:37:32 Test Item Value Reference Range Interpretation Comments WHITE BLOOD CELL COUNT (BEAKER) 11.9 K/ L 3.5-10.5 H (test code = 775) RED BLOOD CELL COUNT (BEAKER) 3.60 M/ L 4.63-6.08 L (test code = 761) HEMOGLOBIN (BEAKER) (test code = 9.8 GM/DL 13.7-17.5 L 410) HEMATOCRIT (BEAKER) (test code = 30.1 % 40.1-51.0 L 411) MEAN CORPUSCULAR VOLUME (BEAKER) 84 fL 79-92 (test code = 753) MEAN CORPUSCULAR HEMOGLOBIN 27.2 pg 25.7-32.2 (BEAKER) (test code = 751) MEAN CORPUSCULAR HEMOGLOBIN CONC 32.6 GM/DL 32.3-36.5 (BEAKER) (test code = 752) RED CELL DISTRIBUTION WIDTH 18.0 % 11.6-14.4 H (BEAKER) (test code = 412) PLATELET COUNT (BEAKER) (test code 76 K/CU MM 150-450 L = 756) MEAN PLATELET VOLUME (BEAKER) 10.1 fL 9.4-12.4 (test code = 754) NUCLEATED RED BLOOD CELLS (BEAKER) 1 /100 WBC 0-0 H (test code = 413) NEUTROPHILS RELATIVE PERCENT 73 % (BEAKER) (test code = 429) LYMPHOCYTES RELATIVE PERCENT 15 % (BEAKER) (test code = 430) MONOCYTES RELATIVE PERCENT 6 % (BEAKER) (test code = 431) EOSINOPHILS RELATIVE PERCENT 1 % (BEAKER) (test code = 432) BASOPHILS RELATIVE PERCENT 0 % (BEAKER) (test code = 437) NEUTROPHILS ABSOLUTE COUNT 8.71 K/ L 1.78-5.38 H (BEAKER) (test code = 670) LYMPHOCYTES ABSOLUTE COUNT 1.75 K/ L 1.32-3.57 (BEAKER) (test code = 414) MONOCYTES ABSOLUTE COUNT (BEAKER) 0.69 K/ L 0.30-0.82 (test code = 415) EOSINOPHILS ABSOLUTE COUNT 0.09 K/ L 0.04-0.54 (BEAKER) (test code = 416) BASOPHILS ABSOLUTE COUNT (BEAKER) 0.05 K/ L 0.01-0.08 (test code = 417) IMMATURE GRANULOCYTES-RELATIVE 5.00 % 0.00-1.00 H PERCENT (BEAKER) (test code = 2801) POCT-GLUCOSE [id number] 22:36:27 Test Item Value Reference Range Interpretation Comments POC-GLUCOSE METER 220 mg/dL 70-110 H : TESTED A T [facility] (BEAKER) (test code = [place], 153) [address]: Software Quality Tester/Techni zaire ID = [id number] for Kinza Santos POCT-GLUCOSE [id number] 16:46:15 Test Item Value Reference Range Interpretation Comments POC-GLUCOSE METER 192 mg/dL 70-110 H : TESTED A T [facility] 67[facility] (BEAKER) (test code = [place], 153) 33206: Software Quality Tester/Techni zaire ID = [id number] for SHAWN GABRIELSALVATORE BRISENO POCT-GLUCOSE [id number] 13:13:46 Test Item Value Reference Range Interpretation Comments POC-GLUCOSE METER 227 mg/dL 70-110 H : TESTED A T [facility] 67[facility] ([employer]aler[employer]AK[employer]) (test code = NICOLE [place]rit[place], 1538) 515[address]: Software Quality Tester/Techni zaire ID = [id number] for WENDY WINSLOW POCT-GLUCOSE [id number] 09:33:39 Test Item Value Reference Range Interpretation Comments POC-GLUCOSE METER 114 mg/dL 70-110 H : TESTED A T [facility] ([employer]) (test code = NICOLE Arita [place], 1538) 139[address]: Software Quality Tester/Techni zaire ID = [id number] for WENDY WINSLOW TACROLIMUS [id number] 09:25:04 Test Item Value Reference Range Interpretation Comments TACROLIMUS BLOOD 11.3 ng/mL 10.0-20.0 Test perfor med on [employer] (BRITTANYAKER) (test code Architec t Immunoassay = 657) system with Chemiluminescen t Microparticle Immunoassay (CM IA) technology. Software Quality Tester ID - DHARA, CHEST, 1 VIEW, NON [id number] 06:54:00REFERRING MD: CHERELLE SALVADOR Reason for exam:->S/p liver transplantShould this be performed at the bedside?->Yes [facility]ALEN CARDONA : 1955 Sex: MFINAL REPORT CLINICAL HISTORY: S/p liver transplant TECHNIQUE: 1 view of the chest. COMPARISON: 08/21/2022 IMPRESSION: Bilateral perihilar bandlike opacities are unchanged. No infiltrates or significant effusions. The cardiomediastinal silhouette is magnified by technique. Signed: Marycruz Barillaseport Verified Date/Time: 08/22/2022 06:54:11 Electronically signed by: MARYCRUZ BARILLAS M.D.on 08/22/2022 06:54 AMBASIC METABOLIC [id number] 06:32:37 Test Item Value Reference Range Interpretation Comments SODIUM (BEAKER) 138 meq/L 136-145 (test code = 381) POTASSIUM 3.2 meq/L 3.5-5.1 L (BEAKER) (test code = 379) CHLORIDE (BEAKER) 105 meq/L 98-107 (test code = 382) CO2 (BEAKER) 24 meq/L 22-29 (test code = 355) BLOOD UREA 18 mg/dL 7-21 NITROGEN (BEAKER) (test code = 354) CREATININE 0.70 mg/dL 0.57-1.25 (BEAKER) (test code = 358) GLUCOSE RANDOM 81 mg/dL 70-105 (BEAKER) (test code = 652) [...] not appl icable for dialysis patien ts Software Quality Tester ID - BETTE GHEPATIC FUNCTION [id number] 06:28:53 Test Item Value Reference Range Interpretation Comments TOTAL PROTEIN (BEAKER) (test code = 4.5 gm/dL 6.0-8.3 L 770) ALBUMIN (BEAKER) (test code = 1145) 2.5 g/dL 3.5-5.0 L BILIRUBIN TOTAL (BEAKER) (test code 0.9 mg/dL 0.2-1.2 = 377) BILIRUBIN DIRECT (BEAKER) (test 0.4 mg/dL 0.1-0.5 code = 706) ALKALINE PHOSPHATASE (BEAKER) (test 98 U/L 40-150 code = 346) AST (SGOT) (BEAKER) (test code = 25 U/L 5-34 353) ALT (SGPT) (BEAKER) (test code = 118 U/L 6-55 H 347) Software Quality Tester ID - BETTE [id number] 06:28:52 Test Item Value Reference Range Interpretation Comments MAGNESIUM (BEAKER) (test code = 1.8 mg/dL 1.6-2.6 627) Software Quality Tester ID - BETTE [id number] 06:28:52 Test Item Value Reference Range Interpretation Comments PHOSPHORUS (BEAKER) (test code = 2.8 mg/dL 2.3-4.7 604) Software Quality Tester ID - BETTE GTSH/FREE T4 IF [id number] 06:11:21 Test Item Value Reference Range Interpretation Comments THYROID STIMULATING HORMONE 0.939 uIU/mL 0.350-4.940 (BEAKER) (test code = 772) Software Quality Tester ID - DBIMMUNOGLOBULIN G (IGG)2022-08-22 05:50:37 Test Item Value Reference Range Interpretation Comments IMMUNOGLOBULIN G (IGG) (BEAKER) 549 mg/dL 540-1822 (test code = 427) Software Quality Tester ID - [id number] 05:50:36 Test Item Value Reference Range Interpretation Comments PREALBUMIN (BEAKER) (test code = 12 mg/dL 14-45 L 586) Software Quality Tester ID - DBPROTHROMBIN TIME/[id number] 05:40:46 Test Item Value Reference Range Interpretation Comments PROTIME (BEAKER) (test code = 15.5 seconds 11.9-14.2 H 759) INR (BEAKER) (test code = 370) 1.31 <=5.90 RECOMMENDED COUMADIN/WARFARIN INR THERAPY RANGESSTANDARD DOSE: 2.0 - 3.0 Includes: PROPHYLAXIS for venous thrombosis, systemic embolization; TREATMENT for venous thrombosis and/or pulmonary embolus.HIGH RISK: Target INR is 2.5-3.5 for patients with mechanical heart valves.CBC W/PLT COUNT & AUTO [id number] 05:33:33 Test Item Value Reference Range Interpretation Comments WHITE BLOOD CELL COUNT (BEAKER) 11.2 K/ L 3.5-10.5 H (test code = 775) RED BLOOD CELL COUNT (BEAKER) 3.19 M/ L 4.63-6.08 L (test code = 761) HEMOGLOBIN (BEAKER) (test code = 8.8 GM/DL 13.7-17.5 L 410) HEMATOCRIT (BEAKER) (test code = 27.2 % 40.1-51.0 L 411) MEAN CORPUSCULAR VOLUME (BEAKER) 85 fL 79-92 (test code = 753) MEAN CORPUSCULAR HEMOGLOBIN 27.6 pg 25.7-32.2 (BEAKER) (test code = 751) MEAN CORPUSCULAR HEMOGLOBIN CONC 32.4 GM/DL 32.3-36.5 (BEAKER) (test code = 752) RED CELL DISTRIBUTION WIDTH 17.5 % 11.6-14.4 H (BEAKER) (test code = 412) PLATELET COUNT (BEAKER) (test code 67 K/CU MM 150-450 L = 756) MEAN PLATELET VOLUME (BEAKER) 10.9 fL 9.4-12.4 (test code = 754) NUCLEATED RED BLOOD CELLS (BEAKER) 1 /100 WBC 0-0 H (test code = 413) NEUTROPHILS RELATIVE PERCENT 72 % (BEAKER) (test code = 429) LYMPHOCYTES RELATIVE PERCENT 16 % (BEAKER) (test code = 430) MONOCYTES RELATIVE PERCENT 11 % (BEAKER) (test code = 431) EOSINOPHILS RELATIVE PERCENT 0 % (BEAKER) (test code = 432) BASOPHILS RELATIVE PERCENT 0 % (BEAKER) (test code = 437) NEUTROPHILS ABSOLUTE COUNT 8.05 K/ L 1.78-5.38 H (BEAKER) (test code = 670) LYMPHOCYTES ABSOLUTE COUNT 1.73 K/ L 1.32-3.57 (BEAKER) (test code = 414) MONOCYTES ABSOLUTE COUNT (BEAKER) 1.19 K/ L 0.30-0.82 H (test code = 415) EOSINOPHILS ABSOLUTE COUNT 0.01 K/ L 0.04-0.54 L (BEAKER) (test code = 416) BASOPHILS ABSOLUTE COUNT (BEAKER) 0.01 K/ L 0.01-0.08 (test code = 417) IMMATURE GRANULOCYTES-RELATIVE 1.70 % 0.00-1.00 H PERCENT (BEAKER) (test code = 2801) Prepare Leuko-Red [id number] 23:54:00 Test Item Value Reference Range Interpretation Comments CROSSMATCH (test code = 2264) COMPATIBLE Unit ABO (test code = O Pos 7616489) UNIT NUMBER (test code = [id number] 934-0) Status (test code = 6480817) [facility] Blood Bank Product (test code RED BLOOD CELLS = 2263) PRODUCT CODE (test code = V6199X12 933-2) [facility] [id number] 21:12:15 Test Item Value Reference Range Interpretation Comments POC-GLUCOSE METER 181 mg/dL 70-110 H : TESTED A T [facility] [address] ([employer]) (test code = [place], 153) [address]: Software Quality Tester/Techni zaire ID = [id number] for Teo Velez POCT-GLUCOSE [id number] 17:28:30 Test Item Value Reference Range Interpretation Comments POC-GLUCOSE METER 166 mg/dL 70-110 H : TESTED A T [facility] [address] ([employer]) (test code = [place], 1538) [address]: Software Quality Tester/Techni zaire ID = [id number] for VICTOR M CHANG MITALI POCT-GLUCOSE [id number] 12:55:32 Test Item Value Reference Range Interpretation Comments POC-GLUCOSE METER 137 mg/dL 70-110 H : TESTED A T [facility] [address] ([employer]) (test code = [place], 1538) [address]: Software Quality Tester/Techni zaire ID = [id number] for MITALI DOW DD TACROLIMUS [id number] 09:51:50 Test Item Value Reference Range Interpretation Comments TACROLIMUS BLOOD 8.3 ng/mL 10.0-20.0 L Test perfor med on [place] (BEAKER) (test code Architec t Immunoassay = 657) system with Chemiluminescen t Microparticle I mmunoassay (CMIA) technolo gy. Software Quality Tester ID - AAHAMIDPOCT-GLUCOSE [id number] 09:18:36 Test Item Value Reference Range Interpretation Comments POC-GLUCOSE METER 181 mg/dL 70-110 H : TESTED A T [facility] [address] (BEAKER) (test code = [place], 1538) [address]: Software Quality Tester/Techni zaire ID = [id number] for MITALI DOW DD VANCOMYCIN LEVEL, [id number] 08:47:17 Test Item Value Reference Range Interpretation Comments VANCOMYCIN TROUGH ([place]) (test 3.5 ug/mL 10.0-20.0 L code = 522) Software Quality Tester ID - BETTE GPOCT-GLUCOSE [id number] 06:29:01 Test Item Value Reference Range Interpretation Comments POC-GLUCOSE METER 148 mg/dL 70-110 H : TESTED A T [facility] [address] ([place]) (test code = NICOLE Arita [facility], 1538) [address]: Software Quality Tester/Techni zaire ID = [id number] for Elsie lozaDuarte RAD, CHEST, 1 VIEW, NON [id number] 05:34:00REFERRING MD: CHERELLE SALVADOR Reason for exam:->S/p liver transplantShould this be performed at the bedside?->Yes[facility]ame: KALEN CARDONA : 1955 Sex: MFINAL REPORT CLINICAL INDICATION: S/p liver transplant Comparison: 08/21/2019 no The cardiomediastinal contours are stable. The lung volumes are low. Central pulmonary vascular congestion and bilateral parenchymal opacities are unchanged. There is no pneumothorax. Signed: Fernando Brandonort Verified Date/Time: 08/21/2022 05:34:40 CALCIUM, [id number] 04:20:05 Test Item Value Reference Range Interpretation Comments CALCIUM IONIZED (BEAKER) (test 1.06 mmol/L 1.12-1.27 L code = 698) PH, BLOOD (BEAKER) (test code = 7.45 1810) Blood gas, [id number] 04:20:00 Test Item Value Reference Range Interpretation Comments pH, Arterial (test code 7.46 7.35-7.45 H = 2744-1) pCO2, Arterial (test 37 See_Comment [Autom ated message] code = 2019-8) The system [facility] generated this result transmit lisa reference range : 35 - 45 mm Hg. The reference range was not used to interpret this result as normal/abnormal . pO2, Arterial (test 94 See_Comment H [Automa lisa message] code = 2703-7) The system [facility] generated this result transmit lisa reference range : 80 - 90 mm Hg. The reference range was not used to interpret this result as normal/abnormal . O2 Sat, Arterial (test 97.6 % 96.0-97.0 H code = 2708-6) HCO3, Arterial (test 25 mmol/L code = 1960-4) Base Excess, Arterial 1.5 mmol/L -2.0-3.0 (test code = 1925-7) Patient Temperature 36.7 (test code = 8310-5) FIO2 (test code = 1819) 21 Lab Interpretation Abnormal (test code = 37662-1) [facility] HospitalBLOOD GAS, [id number] 04:20:00 Test Item Value Reference Range Interpretation Comments PH ARTERIAL (BEAKER) (test code = 7.46 7.35-7.45 H 383) PCO2 ARTERIAL (BEAKER) (test code 37 mm Hg 35-45 = 384) PO2 ARTERIAL (BEAKER) (test code = 94 mm Hg 80-90 H 385) O2 SATURATION ARTERIAL (BEAKER) 97.6 % 96.0-97.0 H (test code = 386) HCO3 ARTERIAL (BEAKER) (test code 25 mmol/L -29 = 388) BASE EXCESS ARTERIAL (BEAKER) 1.5 mmol/L -2.0-3.0 (test code = 387) PATIENT TEMPERATURE (BEAKER) (test 36.7 code = 1818) FIO2 (BEAKER) (test code = 1819) 21.0 BASIC METABOLIC [id number] 04:13:56 Test Item Value Reference Range Interpretation Comments SODIUM (BEAKER) 134 meq/L 136-145 L (test code = 381) POTASSIUM 3.5 meq/L 3.5-5.1 Specimen slight ly (BEAKER) (test hemolyzed code = 379) CHLORIDE (BEAKER) 104 meq/L 98-107 (test code = 382) CO2 (BEAKER) 23 meq/L 22-29 (test code = 355) BLOOD UREA 19 mg/dL 7-21 NITROGEN (BEAKER) (test code = 354) CREATININE 0.69 mg/dL 0.57-1.25 Specimen slight ly (BEAKER) (test hemolyzed code = 358) GLUCOSE RANDOM 161 mg/dL 70-105 H (BEAKER) (test code = 652) CALCIUM (BEAKER) 7.5 mg/dL 8.4-10.2 L (test code = 697) [...] not appl icable for dialysis patien ts Software Quality Tester ID - BETTE [id number] 04:11:27 Test Item Value Reference Range Interpretation Comments PHOSPHORUS (BEAKER) 2.8 mg/dL 2.3-4.7 Specimen slightly (test code = 604) hemolyzed Software Quality Tester ID - BETTE GHEPATIC FUNCTION [id number] 04:11:27 Test Item Value Reference Range Interpretation Comments TOTAL PROTEIN (BEAKER) 4.7 gm/dL 6.0-8.3 L Speci men slightly (test code = 770) hemolyzed ALBUMIN (BEAKER) (test 2.4 g/dL 3.5-5.0 L Speci men slightly code = 1145) hemolyzed BILIRUBIN TOTAL 0.8 mg/dL 0.2-1.2 Specimen sli ghtly (BEAKER) (test code = hemoly zed 377) BILIRUBIN DIRECT 0.4 mg/dL 0.1-0.5 Specimen sl ightly (BEAKER) (test code = hemoly zed 706) ALKALINE PHOSPHATASE 94 U/L 40-150 (BEAKER) (test code = 346) AST (SGOT) (BEAKER) 38 U/L 5-34 H Specimen slightly (test code = 353) hemolyzed ALT (SGPT) (BEAKER) 144 U/L 6-55 H Specimen slightly (test code = 347) hemolyzed Software Quality Tester ID - BETTE [id number] 04:11:26 Test Item Value Reference Range Interpretation Comments MAGNESIUM (BEAKER) 1.6 mg/dL 1.6-2.6 Specimen slightly (test code = 627) hemolyzed Software Quality Tester ID - BETTE GPROTHROMBIN TIME/[id number] 04:02:03 Test Item Value Reference Range Interpretation Comments PROTIME (BEAKER) (test code = 14.7 seconds 11.9-14.2 H 759) INR (BEAKER) (test code = 370) 1.23 <=5.90 RECOMMENDED COUMADIN/WARFARIN INR THERAPY RANGESSTANDARD DOSE: 2.0 - 3.0 Includes: PROPHYLAXIS for venous thrombosis, systemic embolization; TREATMENT for venous thrombosis and/or pulmonary embolus.HIGH RISK: Target INR is 2.5-3.5 for patients with mechanical heart valves.Lactic Acid, [id number] 03:59:46 Test Item Value Reference Range Interpretation Comments Lactate, Art (test 0.7 mmol/L 0.5-2.2 Specimen code = 2874) slightly hemolyzed MADALYN (test code = MADALYN) Software Quality Tester ID - ADMIN Lab Interpretation Normal (test code = 39160-9) [facility], [id number] 03:59:46 Test Item Value Reference Range Interpretation Comments LACTATE BLOOD 0.7 mmol/L 0.5-2.2 Specimen sligh tly ARTERIAL (2) (BEAKER) hemoly zed (test code = 2874) Software Quality Tester ID - ADMINCBC W/PLT COUNT & AUTO [id number] 03:58:54 Test Item Value Reference Range Interpretation Comments WHITE BLOOD CELL COUNT (BEAKER) 10.6 K/ L 3.5-10.5 H (test code = 775) RED BLOOD CELL COUNT (BEAKER) 3.08 M/ L 4.63-6.08 L (test code = 761) HEMOGLOBIN (BEAKER) (test code = 8.5 GM/DL 13.7-17.5 L 410) HEMATOCRIT (BEAKER) (test code = 25.2 % 40.1-51.0 L 411) MEAN CORPUSCULAR VOLUME (BEAKER) 82 fL 79-92 (test code = 753) MEAN CORPUSCULAR HEMOGLOBIN 27.6 pg 25.7-32.2 (BEAKER) (test code = 751) MEAN CORPUSCULAR HEMOGLOBIN CONC 33.7 GM/DL 32.3-36.5 (BEAKER) (test code = 752) RED CELL DISTRIBUTION WIDTH 17.1 % 11.6-14.4 H (BEAKER) (test code = 412) PLATELET COUNT (BEAKER) (test code 52 K/CU MM 150-450 L = 756) MEAN PLATELET VOLUME (BEAKER) 11.0 fL 9.4-12.4 (test code = 754) NUCLEATED RED BLOOD CELLS (BEAKER) 0 /100 WBC 0-0 (test code = 413) NEUTROPHILS RELATIVE PERCENT 79 % (BEAKER) (test code = 429) LYMPHOCYTES RELATIVE PERCENT 12 % (BEAKER) (test code = 430) MONOCYTES RELATIVE PERCENT 8 % (BEAKER) (test code = 431) EOSINOPHILS RELATIVE PERCENT 0 % (BEAKER) (test code = 432) BASOPHILS RELATIVE PERCENT 0 % (BEAKER) (test code = 437) NEUTROPHILS ABSOLUTE COUNT 8.34 K/ L 1.78-5.38 H (BEAKER) (test code = 670) LYMPHOCYTES ABSOLUTE COUNT 1.31 K/ L 1.32-3.57 L (BEAKER) (test code = 414) MONOCYTES ABSOLUTE COUNT (BEAKER) 0.88 K/ L 0.30-0.82 H (test code = 415) EOSINOPHILS ABSOLUTE COUNT 0.01 K/ L 0.04-0.54 L (BEAKER) (test code = 416) BASOPHILS ABSOLUTE COUNT (BEAKER) 0.01 K/ L 0.01-0.08 (test code = 417) IMMATURE GRANULOCYTES-RELATIVE 0.60 % 0.00-1.00 PERCENT (BEAKER) (test code = 2801) POCT-GLUCOSE [id number] 23:40:23 Test Item Value Reference Range Interpretation Comments POC-GLUCOSE METER 147 mg/dL 70-110 H : TESTED A T [facility] [address] (BEAKER) (test code = [place], 1538) [address]: Software Quality Tester/Techni zaire ID = [id number] for Elsie lozaDevDuarte CBC W/PLT COUNT & AUTO [id number] 22:17:37 Test Item Value Reference Range Interpretation Comments WHITE BLOOD CELL COUNT (BEAKER) 11.8 K/ L 3.5-10.5 H (test code = 775) RED BLOOD CELL COUNT (BEAKER) 3.28 M/ L 4.63-6.08 L (test code = 761) HEMOGLOBIN (BEAKER) (test code = 9.0 GM/DL 13.7-17.5 L 410) HEMATOCRIT (BEAKER) (test code = 26.9 % 40.1-51.0 L 411) MEAN CORPUSCULAR VOLUME (BEAKER) 82 fL 79-92 (test code = 753) MEAN CORPUSCULAR HEMOGLOBIN 27.4 pg 25.7-32.2 (BEAKER) (test code = 751) MEAN CORPUSCULAR HEMOGLOBIN CONC 33.5 GM/DL 32.3-36.5 (BEAKER) (test code = 752) RED CELL DISTRIBUTION WIDTH 16.7 % 11.6-14.4 H (BEAKER) (test code = 412) PLATELET COUNT (BEAKER) (test code 58 K/CU MM 150-450 L = 756) MEAN PLATELET VOLUME (BEAKER) 10.9 fL 9.4-12.4 (test code = 754) NUCLEATED RED BLOOD CELLS (BEAKER) 1 /100 WBC 0-0 H (test code = 413) NEUTROPHILS RELATIVE PERCENT 79 % (BEAKER) (test code = 429) LYMPHOCYTES RELATIVE PERCENT 11 % (BEAKER) (test code = 430) MONOCYTES RELATIVE PERCENT 8 % (BEAKER) (test code = 431) EOSINOPHILS RELATIVE PERCENT 0 % (BEAKER) (test code = 432) BASOPHILS RELATIVE PERCENT 0 % (BEAKER) (test code = 437) NEUTROPHILS ABSOLUTE COUNT 9.40 K/ L 1.78-5.38 H (BEAKER) (test code = 670) LYMPHOCYTES ABSOLUTE COUNT 1.32 K/ L 1.32-3.57 (BEAKER) (test code = 414) MONOCYTES ABSOLUTE COUNT (BEAKER) 0.93 K/ L 0.30-0.82 H (test code = 415) EOSINOPHILS ABSOLUTE COUNT 0.00 K/ L 0.04-0.54 L (BEAKER) (test code = 416) BASOPHILS ABSOLUTE COUNT (BEAKER) 0.02 K/ L 0.01-0.08 (test code = 417) IMMATURE GRANULOCYTES-RELATIVE 1.40 % 0.00-1.00 H PERCENT (BEAKER) (test code = 2801) POCT-GLUCOSE [id number] 17:46:22 Test Item Value Reference Range Interpretation Comments POC-GLUCOSE METER 264 mg/dL 70-110 H : TESTED A T [facility] [address] (BEAKER) (test code = [place], 1538) [address]: Software Quality Tester/Techni zaire ID = [id number] for Kimber Reyes POCT-GLUCOSE [id number] 15:50:26 Test Item Value Reference Range Interpretation Comments POC-GLUCOSE METER 258 mg/dL 70-110 H : TESTED A T [facility] [address] (BEAKER) (test code = [place], 153) [address]: Software Quality Tester/Techni zaire ID = [id number] for Kimber Reyes CBC W/PLT COUNT & AUTO [id number] 14:39:22 Test Item Value Reference Range Interpretation Comments WHITE BLOOD CELL COUNT 11.7 K/ L 3.5-10.5 H (BEAKER) (test code = 775) RED BLOOD CELL COUNT 3.05 M/ L 4.63-6.08 L (BEAKER) (test code = 761) HEMOGLOBIN (BEAKER) 8.5 GM/DL 13.7-17.5 L (test code = 410) HEMATOCRIT (BEAKER) 25.5 % 40.1-51.0 L (test code = 411) MEAN CORPUSCULAR 84 fL 79-92 VOLUME (BEAKER) (test code = 753) MEAN CORPUSCULAR 27.9 pg 25.7-32.2 HEMOGLOBIN (BEAKER) (test code = 751) MEAN CORPUSCULAR 33.3 GM/DL 32.3-36.5 HEMOGLOBIN CONC (BEAKER) (test code = 752) RED CELL DISTRIBUTION 17.3 % 11.6-14.4 H WIDTH (BEAKER) (test code = 412) PLATELET COUNT 54 K/CU MM 150-[address] T RESULT (BEAKER) (test code = COMPAR ED TO PREVIOUS 756) RESULT; CLINICA L CORRELATION REQUIRED.Pt rcd plt MEAN PLATELET VOLUME 11.5 fL 9.4-12.4 (BEAKER) (test code = 754) NUCLEATED RED BLOOD 0 /100 WBC 0-0 CELLS (BEAKER) (test code = 413) NEUTROPHILS RELATIVE 87 % PERCENT (BEAKER) (test code = 429) LYMPHOCYTES RELATIVE 8 % PERCENT (BEAKER) (test code = 430) MONOCYTES RELATIVE 4 % PERCENT (BEAKER) (test code = 431) EOSINOPHILS RELATIVE 0 % PERCENT (BEAKER) (test code = 432) BASOPHILS RELATIVE 0 % PERCENT (BEAKER) (test code = 437) NEUTROPHILS ABSOLUTE 10.14 K/ L 1.78-5.38 H COUNT (BEAKER) (test code = 670) LYMPHOCYTES ABSOLUTE 0.96 K/ L 1.32-3.57 L COUNT (BEAKER) (test code = 414) MONOCYTES ABSOLUTE 0.46 K/ L 0.30-0.82 COUNT (BEAKER) (test code = 415) EOSINOPHILS ABSOLUTE 0.01 K/ L 0.04-0.54 L COUNT (BEAKER) (test code = 416) BASOPHILS ABSOLUTE 0.02 K/ L 0.01-0.08 COUNT (BEAKER) (test code = 417) IMMATURE 1.10 % 0.00-1.00 H GRANULOCYTES-RELATIVE PERCENT (BEAKER) (test code = 2801) Body Fluid Culture + Gram [id number] 12:51:18 Test Item Value Reference Range Interpretation Comments Result (test code = 6463-4) No growth Lab Interpretation (test code = Normal 12122-3) [facility] + GRAM [id number] 12:51:18 Test Item Value Reference Range Interpretation Comments CULTURE (BEAKER) (test code = 1095) No growth POCT-GLUCOSE [id number] 11:57:34 Test Item Value Reference Range Interpretation Comments POC-GLUCOSE METER 237 mg/dL 70-110 H : TESTED A T [facility] [address] ([employer]) (test code = [place], 1538) [address]: Software Quality Tester/Techni zaire ID = [id number] for Kimber Reyes HEMOGLOBIN [id number] 10:50:28 Test Item Value Reference Range Interpretation Comments HEMOGLOBIN A1C 6.1 % See_Comment H [Automated m essage] ELECTROPHORESIS ([employer]) The system which (test code = 3811) generated this result transmitted ref erence range: <=5.6%. The reference range was not used to int erpret this result as normal/abnormal . "The A1c is measured using a NGSP-certified method. HbA1c value equal to or greater than 6.5% as thediagnosis cutoff for diabetes. An HbA1c value of 5.7- 6.4% indicates increased risk for diabetes (prediabetes)."Software Quality Tester ID - ADM TACROLIMUS [id number] 09:27:40 Test Item Value Reference Range Interpretation Comments TACROLIMUS BLOOD 5.0 ng/mL 10.0-20.0 L Test perfor med on [place] ([employer]) (test code Architec t Immunoassay = 657) system with Chemiluminescen t Microparticle I mmunoassay (CMIA) technolo gy. Software Quality Tester ID - DHARA, CHEST, 1 VIEW, NON [id number] 08:23:00REFERRING MD: CHERELLE SALVADOR Reason for exam:->S/p liver transplantShould this be performed at the bedside?->Yes [facility]ALEN CARDONA : 1955 Sex: MFINAL REPORT Chest one view: HISTORY: Status post liver transplant Compared to 08/19/2022. A lower volume inspiration is noted. Mild interstitial and airspace opacities are decreased from the comparison study. There is no pleural effusion. Cardiac size is unchanged. The right jugular catheter is noted previously have been removed in the interval. Signed: Urbano Ulrich MDReport Verified Date/Time: 08/20/2022 08:23:35 POCT-GLUCOSE [id number] 05:46:08 Test Item Value Reference Range Interpretation Comments POC-GLUCOSE METER 232 mg/dL 70-110 H : TESTED A T [facility] [address] (BEAKER) (test code = [place], 1538) [address]: Software Quality Tester/Techni zaire ID = [id number] for Duarte Hernandez HEPATIC FUNCTION [id number] 05:27:13 Test Item Value Reference Range Interpretation Comments TOTAL PROTEIN (BEAKER) (test code = 4.6 gm/dL 6.0-8.3 L 770) ALBUMIN (BEAKER) (test code = 1145) 2.5 g/dL 3.5-5.0 L BILIRUBIN TOTAL (BEAKER) (test code 1.2 mg/dL 0.2-1.2 = 377) BILIRUBIN DIRECT (BEAKER) (test 0.7 mg/dL 0.1-0.5 H code = 706) ALKALINE PHOSPHATASE (BEAKER) (test 113 U/L 40-150 code = 346) AST (SGOT) (BEAKER) (test code = 46 U/L 5-34 H 353) ALT (SGPT) (BEAKER) (test code = 188 U/L 6-55 H 347) Software Quality Tester ID - MMOperator ID - MMBASIC METABOLIC [id number] 03:24:58 Test Item Value Reference Range Interpretation Comments SODIUM (BEAKER) 133 meq/L 136-145 L (test code = 381) POTASSIUM 3.9 meq/L 3.5-5.1 (BEAKER) (test code = 379) CHLORIDE (BEAKER) 103 meq/L 98-107 (test code = 382) CO2 (BEAKER) 24 meq/L 22-29 (test code = 355) BLOOD UREA 11 mg/dL 7-21 NITROGEN (BEAKER) (test code = 354) CREATININE 0.72 mg/dL 0.57-1.25 (BEAKER) (test code = 358) GLUCOSE RANDOM 274 mg/dL 70-105 H (BEAKER) (test code = 652) CALCIUM (BEAKER) 7.7 mg/dL 8.4-10.2 L (test code = 697) EGFR (BEAKER) 101 Interpretatio n of eGFR (test code = [...] not appl icable for dialysis patien ts Software Quality Tester ID - [id number] 03:08:11 Test Item Value Reference Range Interpretation Comments PHOSPHORUS (BEAKER) (test code = 2.6 mg/dL 2.3-4.7 604) Software Quality Tester ID - [id number] 03:08:10 Test Item Value Reference Range Interpretation Comments MAGNESIUM (BEAKER) (test code = 1.8 mg/dL 1.6-2.6 627) Software Quality Tester ID - [id number] 03:00:48 Test Item Value Reference Range Interpretation Comments AMMONIA (BEAKER) (test code = 348) 41 mol/L 18-72 Software Quality Tester ID - MMLACTIC ACID, [id number] 02:58:29 Test Item Value Reference Range Interpretation Comments LACTATE BLOOD ARTERIAL (2) 0.8 mmol/L 0.5-2.2 (BEAKER) (test code = 2874) Software Quality Tester ID - MMPROTHROMBIN TIME/[id number] 02:54:11 Test Item Value Reference Range Interpretation Comments PROTIME (BEAKER) (test code = 15.4 seconds 11.9-14.2 H 759) INR (BEAKER) (test code = 370) 1.30 <=5.90 RECOMMENDED COUMADIN/WARFARIN INR THERAPY RANGESSTANDARD DOSE: 2.0 - 3.0 Includes: PROPHYLAXIS for venous thrombosis, systemic embolization; TREATMENT for venous thrombosis and/or pulmonary embolus.HIGH RISK: Target INR is 2.5-3.5 for patients with mechanical heart valves.CBC W/PLT COUNT & AUTO [id number] 02:46:42 Test Item Value Reference Range Interpretation Comments WHITE BLOOD CELL COUNT (BEAKER) 9.4 K/ L 3.5-10.5 (test code = 775) RED BLOOD CELL COUNT (BEAKER) 2.59 M/ L 4.63-6.08 L (test code = 761) HEMOGLOBIN (BEAKER) (test code = 6.9 GM/DL 13.7-17.5 L 410) HEMATOCRIT (BEAKER) (test code = 21.0 % 40.1-51.0 L 411) MEAN CORPUSCULAR VOLUME (BEAKER) 81 fL 79-92 (test code = 753) MEAN CORPUSCULAR HEMOGLOBIN 26.6 pg 25.7-32.2 (BEAKER) (test code = 751) MEAN CORPUSCULAR HEMOGLOBIN CONC 32.9 GM/DL 32.3-36.5 (BEAKER) (test code = 752) RED CELL DISTRIBUTION WIDTH 17.0 % 11.6-14.4 H (BEAKER) (test code = 412) PLATELET COUNT (BEAKER) (test code 35 K/CU MM 150-450 L = 756) MEAN PLATELET VOLUME (BEAKER) 10.5 fL 9.4-12.4 (test code = 754) NUCLEATED RED BLOOD CELLS (BEAKER) 0 /100 WBC 0-0 (test code = 413) NEUTROPHILS RELATIVE PERCENT 81 % (BEAKER) (test code = 429) LYMPHOCYTES RELATIVE PERCENT 12 % (BEAKER) (test code = 430) MONOCYTES RELATIVE PERCENT 6 % (BEAKER) (test code = 431) EOSINOPHILS RELATIVE PERCENT 0 % (BEAKER) (test code = 432) BASOPHILS RELATIVE PERCENT 0 % (BEAKER) (test code = 437) NEUTROPHILS ABSOLUTE COUNT 7.58 K/ L 1.78-5.38 H (BEAKER) (test code = 670) LYMPHOCYTES ABSOLUTE COUNT 1.11 K/ L 1.32-3.57 L (BEAKER) (test code = 414) MONOCYTES ABSOLUTE COUNT (BEAKER) 0.60 K/ L 0.30-0.82 (test code = 415) EOSINOPHILS ABSOLUTE COUNT 0.01 K/ L 0.04-0.54 L (BEAKER) (test code = 416) BASOPHILS ABSOLUTE COUNT (BEAKER) 0.01 K/ L 0.01-0.08 (test code = 417) IMMATURE GRANULOCYTES-RELATIVE 1.00 % 0.00-1.00 PERCENT (BEAKER) (test code = 2801) CALCIUM, [id number] 02:46:27 Test Item Value Reference Range Interpretation Comments CALCIUM IONIZED (BEAKER) (test 1.05 mmol/L 1.12-1.27 L code = 698) PH, BLOOD (BEAKER) (test code = 7.44 1810) BLOOD GAS, [id number] 02:44:05 Test Item Value Reference Range Interpretation Comments PH ARTERIAL (BEAKER) (test code = 7.44 7.35-7.45 383) PCO2 ARTERIAL (BEAKER) (test code 39 mm Hg 35-45 = 384) PO2 ARTERIAL (BEAKER) (test code = 119 mm Hg 80-90 H 385) O2 SATURATION ARTERIAL (BEAKER) 98.5 % 96.0-97.0 H (test code = 386) HCO3 ARTERIAL (BEAKER) (test code 26 mmol/L 21-29 = 388) BASE EXCESS ARTERIAL (BEAKER) 2.0 mmol/L -2.0-3.0 (test code = 387) PATIENT TEMPERATURE (BEAKER) (test 37.0 code = 1818) FIO2 (BEAKER) (test code = 1819) 21.0 POCT-GLUCOSE [id number] 00:22:30 Test Item Value Reference Range Interpretation Comments POC-GLUCOSE METER 278 mg/dL 70-110 H : TESTED A T [facility] [address] (BEAKER) (test code = [place], 1538) [id number]: Software Quality Tester/Techni zaire ID = [id number] for Duarte Hernandez POCT-GLUCOSE [id number] 18:55:33 Test Item Value Reference Range Interpretation Comments POC-GLUCOSE METER 293 mg/dL 70-110 H : Notified RN/MD: TESTED (BEAKER) (test code AT [facility] [address] = 1538) [facility], 770 30: Software Quality Tester/Techni zaire ID = [id number] for Milagros chowdhury ([facility] Traveler)[place] POCT-GLUCOSE [id number] 16:19:15 Test Item Value Reference Range Interpretation Comments POC-GLUCOSE METER 313 mg/dL 70-110 H : Notified RN/MD: TESTED (BEAKER) (test code AT [facility] [address] = 1538) [facility], [facility] 30: Software Quality Tester/Techni zaire ID = [id number] for Milagros chowdhury ([facility] Traveler)[place] CBC W/PLT COUNT & AUTO [id number] 12:06:09 Test Item Value Reference Range Interpretation Comments WHITE BLOOD CELL COUNT 12.2 K/ L 3.5-10.5 H (BEAKER) (test code = 775) RED BLOOD CELL COUNT 3.01 M/ L 4.63-6.08 L (BEAKER) (test code = 761) HEMOGLOBIN (BEAKER) 8.1 GM/DL 13.7-17.5 L (test code = 410) HEMATOCRIT (BEAKER) 25.0 % 40.1-51.0 L (test code = 411) MEAN CORPUSCULAR VOLUME 83 fL 79-92 (BEAKER) (test code = 753) MEAN CORPUSCULAR 26.9 pg 25.7-32.2 HEMOGLOBIN (BEAKER) (test code = 751) MEAN CORPUSCULAR 32.4 GM/DL 32.3-36.5 HEMOGLOBIN CONC (BEAKER) (test code = 752) RED CELL DISTRIBUTION 17.6 % 11.6-14.4 H WIDTH (BEAKER) (test code = 412) PLATELET COUNT (BEAKER) 49 K/CU MM 150-450 L (test code = 756) MEAN PLATELET VOLUME Unable to report due (BEAKER) (test code = to abn ormal Platelet 754) population distribution. NUCLEATED RED BLOOD 0 /100 WBC 0-0 CELLS (BEAKER) (test code = 413) NEUTROPHILS RELATIVE 88 % PERCENT (BEAKER) (test code = 429) LYMPHOCYTES RELATIVE 7 % PERCENT (BEAKER) (test code = 430) MONOCYTES RELATIVE 3 % PERCENT (BEAKER) (test code = 431) EOSINOPHILS RELATIVE 1 % PERCENT (BEAKER) (test code = 432) BASOPHILS RELATIVE 0 % PERCENT (BEAKER) (test code = 437) NEUTROPHILS ABSOLUTE 10.70 K/ L 1.78-5.38 H COUNT (BEAKER) (test code = 670) LYMPHOCYTES ABSOLUTE 0.79 K/ L 1.32-3.57 L COUNT (BEAKER) (test code = 414) MONOCYTES ABSOLUTE 0.32 K/ L 0.30-0.82 COUNT (BEAKER) (test code = 415) EOSINOPHILS ABSOLUTE 0.14 K/ L 0.04-0.54 COUNT (BEAKER) (test code = 416) BASOPHILS ABSOLUTE 0.04 K/ L 0.01-0.08 COUNT (BEAKER) (test code = 417) IMMATURE 1.60 % 0.00-1.00 H GRANULOCYTES-RELATIVE PERCENT (BEAKER) (test code = 2801) POCT-GLUCOSE [id number] 12:03:22 Test Item Value Reference Range Interpretation Comments POC-GLUCOSE METER 341 mg/dL 70-110 H : Notified RN/MD: TESTED (BEAKER) (test code AT [facility] [address] = 1538) [facility], 770 30: Software Quality Tester/Techni zaire ID = [id number] for Milagros chowdhury ([facility]) [place] kaushik TACROLIMUS [id number] 08:35:56 Test Item Value Reference Range Interpretation Comments TACROLIMUS BLOOD 2.7 ng/mL 10.0-20.0 L Test perfor med on [place] (BEAKER) (test code Archite t Immunoassay = 657) system with Chemiluminescen t Microparticle I mmunoassay (CMIA) technolo clemente. Software Quality Tester ID - [id number] ID - [id number] ID - AAROSIERAD, CHEST, 1 VIEW, NON [id number] 07:30:00REFERRING : CHERELLE SALVADOR Reason for exam:->S/p liver transplantShould this be performed at the bedside?->Yes [facility] : 1955 Sex: MFINAL REPORT RAD, CHEST, 1 VIEW, NON DEPT INDICATION: S/p liver transplant COMPARISON: Prior day's exam TECHNIQUE: Portable frontal view(s) of the chest. FINDINGS: Support Lines and Devices: Interval extubation and removal of the enteric tube. Otherwise, the life support lines and tubes appear unchanged. Lungs and pleura: Unchanged airspace and pleural opacities. No pneumothorax identified. Heart and mediastinum: Stable contours. Stable surgical changes. Additional findings: None. IMPRESSION: 1.Interval extubation and removal of the enteric tube.2.Bilateral interstitial and airspace opacities, which may represent pneumonia, pulmonary edema, or pneumonitis/fibrotic changes. Signed: [facility] Verified Date/Time: 08/19/2022 07:30:12 Reading Location: [address] Reading Room HEPATITIS C PCR, [id number] 06:43:54 Test Item Value Reference Range Interpretation Comments HCV RESULT COMPONENT HCV RNA not detected HCV RNA not detected (BEAKER) (test code = 2699) POCT-GLUCOSE [id number] 06:40:21 Test Item Value Reference Range Interpretation Comments POC-GLUCOSE METER 173 mg/dL 70-110 H : TESTED A T [facility] [address] (BEAKER) (test code = [place], 1538) [address]: Software Quality Tester/Techni zaire ID = [id number] for La wrence (contract), Margot ly PROTHROMBIN TIME/[id number] 05:29:54 Test Item Value Reference Range Interpretation Comments PROTIME (BEAKER) (test code = 15.8 seconds 11.9-14.2 H 759) INR (BEAKER) (test code = 370) 1.34 <=5.90 RECOMMENDED COUMADIN/WARFARIN INR THERAPY RANGESSTANDARD DOSE: 2.0 - 3.0 Includes: PROPHYLAXIS for venous thrombosis, systemic embolization; TREATMENT for venous thrombosis and/or pulmonary embolus.HIGH RISK: Target INR is 2.5-3.5 for patients with mechanical heart valves.BASIC METABOLIC [id number] 05:17:07 Test Item Value Reference Range Interpretation Comments SODIUM (BEAKER) 140 meq/L 136-145 (test code = 381) POTASSIUM 3.4 meq/L 3.5-5.1 L (BEAKER) (test code = 379) CHLORIDE (BEAKER) 108 meq/L 98-107 H (test code = 382) CO2 (BEAKER) 26 meq/L 22-29 (test code = 355) BLOOD UREA 11 mg/dL 7-21 NITROGEN (BEAKER) (test code = 354) CREATININE 0.67 mg/dL 0.57-1.25 (BEAKER) (test code = 358) GLUCOSE RANDOM 175 mg/dL 70-105 H (BEAKER) (test code = [...] not appl icable for dialysis patien ts Software Quality Tester ID - [id number] 05:09:31 Test Item Value Reference Range Interpretation Comments PHOSPHORUS (BEAKER) (test code = 4.1 mg/dL 2.3-4.7 604) Software Quality Tester ID - ADMINHEPATIC FUNCTION [id number] 05:09:31 Test Item Value Reference Range Interpretation Comments TOTAL PROTEIN (BEAKER) (test code = 4.1 gm/dL 6.0-8.3 L 770) ALBUMIN (BEAKER) (test code = 1145) 2.3 g/dL 3.5-5.0 L BILIRUBIN TOTAL (BEAKER) (test code 2.1 mg/dL 0.2-1.2 H = 377) BILIRUBIN DIRECT (BEAKER) (test 1.3 mg/dL 0.1-0.5 H code = 706) ALKALINE PHOSPHATASE (BEAKER) (test 62 U/L 40-150 code = 346) AST (SGOT) (BEAKER) (test code = 100 U/L 5-34 H 353) ALT (SGPT) (BEAKER) (test code = 228 U/L 6-55 H 347) Software Quality Tester ID - [id number] 05:09:30 Test Item Value Reference Range Interpretation Comments MAGNESIUM (BEAKER) (test code = 1.3 mg/dL 1.6-2.6 L 627) Software Quality Tester ID - ADMINLACTIC ACID, [id number] 04:52:01 Test Item Value Reference Range Interpretation Comments LACTATE BLOOD ARTERIAL (2) 0.4 mmol/L 0.5-2.2 L (BEAKER) (test code = 2874) Software Quality Tester ID - BETTE GCALCIUM, [id number] 04:47:20 Test Item Value Reference Range Interpretation Comments CALCIUM IONIZED (BEAKER) (test 1.02 mmol/L 1.12-1.27 L code = 698) PH, BLOOD (BEAKER) (test code = 7.50 1810) BLOOD GAS, [id number] 04:46:27 Test Item Value Reference Range Interpretation Comments PH ARTERIAL (BEAKER) (test code = 7.50 7.35-7.45 H 383) PCO2 ARTERIAL (BEAKER) (test code 34 mm Hg 35-45 L = 384) PO2 ARTERIAL (BEAKER) (test code = 146 mm Hg 80-90 H 385) O2 SATURATION ARTERIAL (BEAKER) 99.1 % 96.0-97.0 H (test code = 386) HCO3 ARTERIAL (BEAKER) (test code 26 mmol/L 21-29 = 388) BASE EXCESS ARTERIAL (BEAKER) 3.0 mmol/L -2.0-3.0 (test code = 387) PATIENT TEMPERATURE (BEAKER) (test 37.0 code = 1818) FIO2 (BEAKER) (test code = 1819) 21.0 CBC W/PLT COUNT & AUTO [id number] 04:42:40 Test Item Value Reference Range Interpretation Comments WHITE BLOOD CELL COUNT (BEAKER) 8.1 K/ L 3.5-10.5 (test code = 775) RED BLOOD CELL COUNT (BEAKER) 2.85 M/ L 4.63-6.08 L (test code = 761) HEMOGLOBIN (BEAKER) (test code = 7.6 GM/DL 13.7-17.5 L 410) HEMATOCRIT (BEAKER) (test code = 23.1 % 40.1-51.0 L 411) MEAN CORPUSCULAR VOLUME (BEAKER) 81 fL 79-92 (test code = 753) MEAN CORPUSCULAR HEMOGLOBIN 26.7 pg 25.7-32.2 (BEAKER) (test code = 751) MEAN CORPUSCULAR HEMOGLOBIN CONC 32.9 GM/DL 32.3-36.5 (BEAKER) (test code = 752) RED CELL DISTRIBUTION WIDTH 17.4 % 11.6-14.4 H (BEAKER) (test code = 412) PLATELET COUNT (BEAKER) (test code 38 K/CU MM 150-450 L = 756) MEAN PLATELET VOLUME (BEAKER) 9.4 fL 9.4-12.4 (test code = 754) NUCLEATED RED BLOOD CELLS (BEAKER) 0 /100 WBC 0-0 (test code = 413) NEUTROPHILS RELATIVE PERCENT 76 % (BEAKER) (test code = 429) LYMPHOCYTES RELATIVE PERCENT 10 % (BEAKER) (test code = 430) MONOCYTES RELATIVE PERCENT 9 % (BEAKER) (test code = 431) EOSINOPHILS RELATIVE PERCENT 3 % (BEAKER) (test code = 432) BASOPHILS RELATIVE PERCENT 0 % (BEAKER) (test code = 437) NEUTROPHILS ABSOLUTE COUNT 6.15 K/ L 1.78-5.38 H (BEAKER) (test code = 670) LYMPHOCYTES ABSOLUTE COUNT 0.84 K/ L 1.32-3.57 L (BEAKER) (test code = 414) MONOCYTES ABSOLUTE COUNT (BEAKER) 0.73 K/ L 0.30-0.82 (test code = 415) EOSINOPHILS ABSOLUTE COUNT 0.25 K/ L 0.04-0.54 (BEAKER) (test code = 416) BASOPHILS ABSOLUTE COUNT (BEAKER) 0.02 K/ L 0.01-0.08 (test code = 417) IMMATURE GRANULOCYTES-RELATIVE 1.10 % 0.00-1.00 H PERCENT (BEAKER) (test code = 2801) POCT-GLUCOSE [id number] 01:47:08 Test Item Value Reference Range Interpretation Comments POC-GLUCOSE METER 162 mg/dL 70-110 H : TESTED A T [facility] [address] (BEAKER) (test code = [address] [place], 1538) [address]: Software Quality Tester/Techni zaire ID = [id number] for Glo james (contract), Margot ly Prepare [id number] 23:54:00 Test Item Value Reference Range Interpretation Comments CROSSMATCH (test code = 2264) COMPATIBLE Unit ABO (test code = O Pos 3737203) UNIT NUMBER (test code = [id number] 934-0) Status (test code = 1432870) TX_TIMEINCHART Blood Bank Product (test code RED BLOOD CELLS = 2263) PRODUCT CODE (test code = N7861O40 933-2) [facility] [id number] 23:54:00 Test Item Value Reference Range Interpretation Comments Unit ABO (test code = O Neg 6557466) UNIT NUMBER (test code = [id number] 934-0) Status (test code = 8744692) TX_TIMEINCHART Blood Bank Product (test code CRYOPRECIPITATE = 2263) PRODUCT CODE (test code = H0086H65 933-2) [facility] [id number] 23:54:00 Test Item Value Reference Range Interpretation Comments Unit ABO (test code = 1155695) O Pos UNIT NUMBER (test code = [id number] 934-0) Status (test code = 2705105) TX_TIMEINCHART Blood Bank Product (test code FFP = 2263) PRODUCT CODE (test code = J6369W46 933-2) [facility] [id number] 23:54:00 Test Item Value Reference Range Interpretation Comments Unit ABO (test code = 8359206) A Pos UNIT NUMBER (test code = [id number] 934-0) Status (test code = 9056655) TX_TIMEINCHART Blood Bank Product (test code PLATELETS = 2263) PRODUCT CODE (test code = V5844H28 933-2) [facility] [id number] 21:24:28 Test Item Value Reference Range Interpretation Comments TOTAL PROTEIN 3.9 gm/dL 6.0-8.3 L (BEAKER) (test code = 770) ALBUMIN (BEAKER) 2.3 g/dL 3.5-5.0 L (test code = 1145) ALKALINE 54 U/L 40-150 PHOSPHATASE (BEAKER) (test code = 346) BILIRUBIN TOTAL 2.1 mg/dL 0.2-1.2 H (BEAKER) (test code = 377) SODIUM (BEAKER) 139 meq/L 136-145 (test code = 381) POTASSIUM (BEAKER) 3.3 meq/L 3.5-5.1 L (test code = 379) CHLORIDE (BEAKER) 108 meq/L 98-107 H (test code = 382) CO2 (BEAKER) (test 26 meq/L 22-29 code = 355) BLOOD UREA 12 mg/dL 7-21 NITROGEN (BEAKER) (test code = 354) CREATININE 0.67 mg/dL 0.57-1.25 (BEAKER) (test code = 358) GLUCOSE RANDOM 151 mg/dL 70-105 H (BEAKER) (test code = 652) CALCIUM (BEAKER) 8.0 mg/dL 8.4-10.2 L (test code = 697) AST (SGOT) 130 U/L 5-34 H (BEAKER) (test code = 353) ALT (SGPT) 248 U/L 6-55 H (BEAKER) (test code = 347) EGFR (BEAKER) 103 Interpretatio n of eGFR (test code = 1092) mL/min/1.[address] age Description sq m Result G1 Shahnaz l or [...] not appl icable for dialysis patien ts Software Quality Tester ID - ADMINBLOOD GAS, [id number] 21:03:12 Test Item Value Reference Range Interpretation Comments PH ARTERIAL (BEAKER) (test code = 7.50 7.35-7.45 H 383) PCO2 ARTERIAL (BEAKER) (test code 35 mm Hg 35-45 = 384) PO2 ARTERIAL (BEAKER) (test code = 76 mm Hg 80-90 L 385) O2 SATURATION ARTERIAL (BEAKER) 96.3 % 96.0-97.0 (test code = 386) HCO3 ARTERIAL (BEAKER) (test code 27 mmol/L 21-29 = 388) BASE EXCESS ARTERIAL (BEAKER) 3.3 mmol/L -2.0-3.0 H (test code = 387) PATIENT TEMPERATURE (BEAKER) (test 37.0 code = 1818) FIO2 (BEAKER) (test code = 1819) 100.0 POCT-GLUCOSE [id number] 19:29:05 Test Item Value Reference Range Interpretation Comments POC-GLUCOSE METER 124 mg/dL 70-110 H : TESTED A T [facility] 67[address] (BEAKER) (test code = [address] [place], 1538) [address]: Software Quality Tester/Techni zaire ID = [id number] for La wrence (contract), Margot ly U/S, ABDOMINAL, WITH [id number] 18:41:00REFERRING MD: CHERELLE SALVADOR Reason for exam:->S/p olt assess vessels [facility] : 1955 Sex: MFINAL REPORT TECHNIQUE: Grayscale ultrasound of the abdomen with color Doppler and spectral Doppler ultrasound of the portal/hepatic vasculature. INDICATION: S/p olt assess vessels. COMPARISON: None. FINDINGS: LIVER: Status post orthotopic liver transplant. Hepatomegaly to 19 cm in length.Smooth liver contour. No focal liver lesions. HEPATIC VASCULATURE: Portal veins are patent with normal waveform and directionality. Main portal vein peak systolic velocity 63.9 cm/s. The hepatic arteries are patent with normal flow velocities, resistive indices, and waveforms. The hepatic veins and confluence are patent. The main portal vein measures 1.0 cm in diameter. BILIARY:Common bile duct measures 0.36 cm, within normal limits. No intrahepatic biliary ductal dilatation. PANCREAS: Incompletely visualized due to overlying bowel gas. SPLEEN: No splenomegaly. The spleen measures 11.8 cm in length. PERITONEUM: Complex fluid seen between the liver and right kidney measuring up to 3.1 cm, may represent hematoma. KIDNEYS: Normal in size bilaterally. No hydronephrosis. No sonographically evident solid mass lesion. MIDLINE VASCULATURE: The visualized inferior vena cava is patent. The maximum visualized aortic diameter is 2.7 cm. Splenic artery and vein are patent. IMPRESSION:Status post orthotopic liver transplant.Hepatomegaly 19 cm in length.Doppler evaluation of the hepatic vasculature is unremarkable.Small complex fluid seen within the liver and right kidney measuring 3.1 cm, may represent hematoma. Signed: Javier Griffin [facility] Verified Date/Time: 08/18/2022 18:41:32 U/S, DUPLEX, [id number] 18:41:00REFERRING : CHERELLE SALVADOR Reason for exam:->S/P OLT [facility]AL[facility] CARDONA : 1955 Sex: MFINAL REPORT TECHNIQUE: Grayscale ultrasound of the abdomen with color Doppler and spectral Doppler ultrasound of the portal/hepatic vasculature. INDICATION: S/p olt assess vessels. COMPARISON: None. FINDINGS: LIVER: Status post orthotopic liver transplant. Hepatomegaly to 19 cm in length.Smooth liver contour. No focal liver lesions. HEPATIC VASCULATURE: Portal veins are patent with normal waveform and directionality. Main portal vein peak systolic velocity 63.9 cm/s. The hepatic arteries are patent with normal flow velocities, resistive indices, and waveforms. The hepatic veins and confluence are patent. The main portal vein measures 1.0 cm in diameter. BILIARY:Common bile duct measures 0.36 cm, within normal limits. No intrahepatic biliary ductal dilatation. PANCREAS: Incompletely visualized due to overlying bowel gas. SPLEEN: No splenomegaly. The spleen measures 11.8 cm in length. PERITONEUM: Complex fluid seen between the liver and right kidney measuring up to 3.1 cm, may represent hematoma. KIDNEYS: Normal in size bilaterally. No hydronephrosis. No sonographically evident solid mass lesion. MIDLINE VASCULATURE: The visualized inferior vena cava is patent. The maximum visualized aortic diameter is 2.7 cm. Splenic artery and vein are patent. IMPRESSION:Status post orthotopic liver transplant.Hepatomegaly 19 cm in length.Doppler evaluation of the hepatic vasculature is unremarkable.Small complex fluid seen within the liver and right kidney measuring 3.1 cm, may represent hematoma. Signed: [facility]avier [facility] Verified Date/Time: 08/18/2022 18:41:32 POCT-GLUCOSE [id number] 18:40:10 Test Item Value Reference Range Interpretation Comments POC-GLUCOSE METER 89 mg/dL 70-110 : TESTED A T [facility] 6720 ([employer]) (test code = [place], 1538) [address]: Software Quality Tester/Techni zaire ID = [id number] for To aritaAndreaBrendan Rafa POCT-GLUCOSE [id number] 18:11:16 Test Item Value Reference Range Interpretation Comments POC-GLUCOSE METER 84 mg/dL 70-110 : TESTED A T [facility] 6720 (BEAKER) (test code = [place], 1538) [address]: Software Quality Tester/Techni zaire ID = [id number] for To rRafa Rodriguez POCT-GLUCOSE [id number] 14:17:22 Test Item Value Reference Range Interpretation Comments POC-GLUCOSE METER 145 mg/dL 70-110 H : TESTED A T [facility] 6720 (BEAKER) (test code = [place], 1538) [address]: Software Quality Tester/Techni zaire ID = [id number] for Hover-Brendan, X avier POCT-GLUCOSE [id number] 12:45:42 Test Item Value Reference Range Interpretation Comments POC-GLUCOSE METER 158 mg/dL 70-110 H : TESTED A T [facility] 67[address] (BEAKER) (test code = [place], 1538) [address]: Software Quality Tester/Techni zaire ID = [id number] for Hover-Brendan, X avier POCT-GLUCOSE [id number] 11:43:43 Test Item Value Reference Range Interpretation Comments POC-GLUCOSE METER 178 mg/dL 70-110 H : TESTED A T [facility] 6720 (BEAKER) (test code = [place], 1538) [address]: Software Quality Tester/Techni zaire ID = [id number] for Hover-Brendan, X avier [id number] 10:42:08 Test Item Value Reference Range Interpretation Comments MAGNESIUM (BEAKER) (test code = 1.6 mg/dL 1.6-2.6 627) Software Quality Tester ID - ADMINPOCT-GLUCOSE [id number] 09:40:17 Test Item Value Reference Range Interpretation Comments POC-GLUCOSE METER 198 mg/dL 70-110 H : TESTED A T [facility] 6720 (BEAKER) (test code = [place], 1538) [address]: Software Quality Tester/Techni zaire ID = [id number] for Hover-Brendan, X avier HEPATIC FUNCTION [id number] 08:05:42 Test Item Value Reference Range Interpretation Comments TOTAL PROTEIN (BEAKER) (test code = 4.3 gm/dL 6.0-8.3 L 770) ALBUMIN (BEAKER) (test code = 1145) 2.6 g/dL 3.5-5.0 L BILIRUBIN TOTAL (BEAKER) (test code 6.0 mg/dL 0.2-1.2 H = 377) BILIRUBIN DIRECT (BEAKER) (test 3.8 mg/dL 0.1-0.5 H code = 706) ALKALINE PHOSPHATASE (BEAKER) (test 74 U/L 40-150 code = 346) AST (SGOT) (BEAKER) (test code = 625 U/L 5-34 H 353) ALT (SGPT) (BEAKER) (test code = 498 U/L 6-55 H 347) Software Quality Tester ID - MARCOOperator ID - MARCOSpecimen moderately ictericPOCT-GLUCOSE [id number] 07:14:07 Test Item Value Reference Range Interpretation Comments POC-GLUCOSE METER 223 mg/dL 70-110 H : TESTED A T [facility] 6720 (BEAKER) (test code = [place], 153) [address]: Software Quality Tester/Techni zaire ID = [id number] for CHERELLE WHEELER CYTOMEGALOVIRUS ANTIBODY, [id number] 06:49:51 Test Item Value Reference Range Interpretation Comments CYTOMEGALOVIRUS, IGG (BEAKER) Positive Negative, Equivocal A (test code = 3429) CMV IgG Result Interpretation: </= 0.8 Al Negative 0.9-1.0 Al Equivocal >/=1.1 Al PositivePOCT-GLUCOSE [id number] 06:13:17 Test Item Value Reference Range Interpretation Comments POC-GLUCOSE METER 235 mg/dL 70-110 H : TESTED A T [facility] 6720 (BEAKER) (test code = [place], 153) [address]: Software Quality Tester/Techni zaire ID = [id number] for CHERELLE WHEELER BLOOD GAS, [id number] 06:08:25 Test Item Value Reference Range Interpretation Comments PH ARTERIAL (BEAKER) (test code = 7.50 7.35-7.45 H 383) PCO2 ARTERIAL (BEAKER) (test code 38 mm Hg 35-45 = 384) PO2 ARTERIAL (BEAKER) (test code = 91 mm Hg 80-90 H 385) O2 SATURATION ARTERIAL (BEAKER) 97.5 % 96.0-97.0 H (test code = 386) HCO3 ARTERIAL (BEAKER) (test code 29 mmol/L 21-29 = 388) BASE EXCESS ARTERIAL (BEAKER) 5.2 mmol/L -2.0-3.0 H (test code = 387) PATIENT TEMPERATURE (BEAKER) (test 37.3 code = 1818) FIO2 (BEAKER) (test code = 1819) 36.0 HGB/HCT (H&H)-Stat [id number] 06:08:19 Test Item Value Reference Range Interpretation Comments Hemoglobin (test code = 8.7 See_Comment L [Au tomated message] 718-7) The system [employer] generated this result transmitted ref erence range: 13.0 - 1 6.8 GM/DL. The refe rence range was not u sed to interpret this result as normal/abnor mal. Hematocrit (test code = 26.0 % 40.0-50.0 L 4544-3) Lab Interpretation (test Abnormal code = 76177-4) [facility] [id number] 06:08:19 Test Item Value Reference Range Interpretation Comments HEMOGLOBIN (BEAKER) (test code = 8.7 GM/DL 13.0-16.8 L 410) HEMATOCRIT (BEAKER) (test code = 26.0 % 40.0-50.0 L 411) Potassium-Stat [id number] 06:06:15 Test Item Value Reference Range Interpretation Comments Potassium (test code = 2823-3) 3.5 meq/L 3.6-5.5 L Lab Interpretation (test code = Abnormal 56939-0) [facility] [id number] 06:06:15 Test Item Value Reference Range Interpretation Comments POTASSIUM (BEAKER) (test code = 3.5 meq/L 3.6-5.5 L 379) Glucose-Stat [id number] 06:06:14 Test Item Value Reference Range Interpretation Comments Glucose (test code = 2345-7) 239 mg/dL 70-110 H Lab Interpretation (test code = Abnormal 52156-0) [facility] [id number] 06:06:14 Test Item Value Reference Range Interpretation Comments Sodium (test code = 2951-2) 137 meq/L 136-145 Lab Interpretation (test code = Normal 88627-6) [facility] [id number] 06:06:14 Test Item Value Reference Range Interpretation Comments GLUCOSE RANDOM (BEAKER) (test code 239 mg/dL 70-110 H = 652) SODIUM NA-STAT [id number] 06:06:14 Test Item Value Reference Range Interpretation Comments SODIUM (BEAKER) (test code = 381) 137 meq/L 136-145 POCT-GLUCOSE [id number] 05:54:12 Test Item Value Reference Range Interpretation Comments POC-GLUCOSE METER 255 mg/dL 70-110 H : TESTED A T [facility] 6720 (BEAKER) (test code = [place], 1538) [address]: Software Quality Tester/Techni zaire ID = [id number] for CHERELLE WHEELER BLOOD GAS, [id number] 05:03:57 Test Item Value Reference Range Interpretation Comments PH ARTERIAL (BEAKER) (test code = 7.46 7.35-7.45 H 383) PCO2 ARTERIAL (BEAKER) (test code 41 mm Hg 35-45 = 384) PO2 ARTERIAL (BEAKER) (test code = 141 mm Hg 80-90 H 385) O2 SATURATION ARTERIAL (BEAKER) 98.9 % 96.0-97.0 H (test code = 386) HCO3 ARTERIAL (BEAKER) (test code 28 mmol/L 21-29 = 388) BASE EXCESS ARTERIAL (BEAKER) 4.2 mmol/L -2.0-3.0 H (test code = 387) PATIENT TEMPERATURE (BEAKER) (test 37.3 code = 1818) FIO2 (BEAKER) (test code = 1819) 40.0 [id number] 03:56:17 Test Item Value Reference Range Interpretation Comments PROTIME (BEAKER) (test code = 19.6 seconds 11.9-14.2 H 759) INR (BEAKER) (test code = 370) 1.78 <=5.90 PARTIAL THROMBOPLASTIN TIME 41.6 seconds 22.5-36.0 H (BEAKER) (test code = 760) RECOMMENDED COUMADIN/WARFARIN INR THERAPY RANGESSTANDARD DOSE: 2.0 - 3.0 Includes: PROPHYLAXIS for venous thrombosis, systemic embolization; TREATMENT for venous thrombosis and/or pulmonary embolus.HIGH RISK: Target INR is 2.5-3.5 for patients with mechanical heart valves.[id number] 03:55:59 Test Item Value Reference Range Interpretation Comments FIBRINOGEN LEVEL (BEAKER) (test 194 mg/dl 225-434 L code = 658) BASIC METABOLIC [id number] 03:48:53 Test Item Value Reference Range Interpretation Comments SODIUM (BEAKER) 139 meq/L 136-145 (test code = 381) POTASSIUM 3.9 meq/L 3.5-5.1 (BEAKER) (test code = 379) CHLORIDE (BEAKER) 108 meq/L 98-107 H (test code = 382) CO2 (BEAKER) 25 meq/L 22-29 (test code = 355) BLOOD UREA 12 mg/dL 7-21 NITROGEN (BEAKER) (test code = 354) CREATININE 0.76 mg/dL 0.57-1.25 (BEAKER) (test code = 358) GLUCOSE RANDOM 268 mg/dL 70-105 H (BEAKER) (test code = 652) CALCIUM (BEAKER) 10.3 mg/dL 8.4-10.2 H (test code = 697) EGFR (BEAKER) 100 Interpretatio n of eGFR (test code = [...] not appl icable for dialysis patien ts Software Quality Tester ID - ADMINSpecimen moderately [id number] 03:48:52 Test Item Value Reference Range Interpretation Comments MAGNESIUM (BEAKER) (test code = 2.1 mg/dL 1.6-2.6 627) Software Quality Tester ID - [id number] 03:48:52 Test Item Value Reference Range Interpretation Comments PHOSPHORUS (BEAKER) (test code = 5.1 mg/dL 2.3-4.7 H 604) Software Quality Tester ID - ADMINLACTIC ACID, [id number] 03:40:32 Test Item Value Reference Range Interpretation Comments LACTATE BLOOD ARTERIAL (2) 1.0 mmol/L 0.5-2.2 (BEAKER) (test code = 2874) Software Quality Tester ID - ADMINSpecimen moderately ictericCBC (HEMOGRAM ONLY)2022-08-18 03:28:50 Test Item Value Reference Range Interpretation Comments WHITE BLOOD CELL COUNT (BEAKER) 14.9 K/ L 3.5-10.5 H (test code = 775) RED BLOOD CELL COUNT (BEAKER) 3.51 M/ L 4.63-6.08 L (test code = 761) HEMOGLOBIN (BEAKER) (test code = 9.3 GM/DL 13.7-17.5 L 410) HEMATOCRIT (BEAKER) (test code = 28.6 % 40.1-51.0 L 411) MEAN CORPUSCULAR VOLUME (BEAKER) 82 fL 79-92 (test code = 753) MEAN CORPUSCULAR HEMOGLOBIN 26.5 pg 25.7-32.2 (BEAKER) (test code = 751) MEAN CORPUSCULAR HEMOGLOBIN CONC 32.5 GM/DL 32.3-36.5 (BEAKER) (test code = 752) RED CELL DISTRIBUTION WIDTH 17.0 % 11.6-14.4 H (BEAKER) (test code = 412) PLATELET COUNT (BEAKER) (test code 54 K/CU MM 150-450 L = 756) MEAN PLATELET VOLUME (BEAKER) 10.7 fL 9.4-12.4 (test code = 754) NUCLEATED RED BLOOD CELLS (BEAKER) 0 /100 WBC 0-0 (test code = 413) POCT-GLUCOSE [id number] 03:21:08 Test Item Value Reference Range Interpretation Comments POC-GLUCOSE METER 263 mg/dL 70-110 H : TESTED A T [facility] 6720 (BEAKER) (test code = [place], 1538) [address]: Software Quality Tester/Techni zaire ID = [id number] for CHERELLE WHEELER BLOOD GAS, [id number] 03:15:15 Test Item Value Reference Range Interpretation Comments PH ARTERIAL (BEAKER) (test code = 7.46 7.35-7.45 H 383) PCO2 ARTERIAL (BEAKER) (test code 40 mm Hg 35-45 = 384) PO2 ARTERIAL (BEAKER) (test code = 160 mm Hg 80-90 H 385) O2 SATURATION ARTERIAL (BEAKER) 99.1 % 96.0-97.0 H (test code = 386) HCO3 ARTERIAL (BEAKER) (test code 28 mmol/L 21-29 = 388) BASE EXCESS ARTERIAL (BEAKER) 4.3 mmol/L -2.0-3.0 H (test code = 387) PATIENT TEMPERATURE (BEAKER) (test 37.3 code = 1818) FIO2 (BEAKER) (test code = 1819) 40.0 POCT-GLUCOSE [id number] 02:13:57 Test Item Value Reference Range Interpretation Comments POC-GLUCOSE METER 271 mg/dL 70-110 H : TESTED A T [facility] 6720 (BEAKER) (test code = [employer] [facility], 1538) [address]: Software Quality Tester/Techni zaire ID = [id number] for CHERELLE WHEELER [id number] 01:42:34 Test Item Value Reference Range Interpretation Comments FIBRINOGEN LEVEL (BEAKER) (test 189 mg/dl 225-434 L code = 658) [id number] 01:23:47 Test Item Value Reference Range Interpretation Comments PROTIME (BEAKER) (test code = 20.7 seconds 11.9-14.2 H 759) INR (BEAKER) (test code = 370) 1.83 <=5.90 PARTIAL THROMBOPLASTIN TIME 45.8 seconds 22.5-36.0 H (BEAKER) (test code = 760) RECOMMENDED COUMADIN/WARFARIN INR THERAPY RANGESSTANDARD DOSE: 2.0 - 3.0 Includes: PROPHYLAXIS for venous thrombosis, systemic embolization; TREATMENT for venous thrombosis and/or pulmonary embolus.HIGH RISK: Target INR is 2.5-3.5 for patients with mechanical heart valves.POCT-GLUCOSE [id number] 01:22:52 Test Item Value Reference Range Interpretation Comments POC-GLUCOSE METER 264 mg/dL 70-110 H : TESTED A T [facility] 6720 (BEAKER) (test code = [employer] [facility], 1538) [address]: Software Quality Tester/Techni zaire ID = [id number] for CHERELLE WHEELER BASIC METABOLIC [id number] 01:12:12 Test Item Value Reference Range Interpretation Comments SODIUM (BEAKER) 141 meq/L 136-145 (test code = 381) POTASSIUM 4.4 meq/L 3.5-5.1 (BEAKER) (test code = 379) CHLORIDE (BEAKER) 109 meq/L 98-107 H (test code = 382) CO2 (BEAKER) 27 meq/L 22-29 (test code = 355) BLOOD UREA 11 mg/dL 7-21 NITROGEN (BEAKER) (test code = 354) CREATININE 0.73 mg/dL 0.57-1.25 (BEAKER) (test code = 358) GLUCOSE RANDOM 280 mg/dL 70-105 H (BEAKER) (test code = 652) CALCIUM (BEAKER) 10.9 mg/dL 8.4-10.2 H Verified by clinical (test code = 697) history EGFR (BEAKER) 101 Interpretatio n of eGFR (test code = [...] not appl icable for dialysis patien ts Software Quality Tester ID - ADMINSpecimen moderately ictericRAD, CHEST, 1 VIEW, NON DEPT 2022-08-18 01:11:00REFERRING MD: CHERELLE SALVADOR Reason for exam:->ETT and CVC placementShould this be performed at the bedside?->Yes [facility] : 1955 Sex: MFINAL REPORT Exam: RAD, CHEST, 1 VIEW, NON DEPTDate: 08/18/2022 1:08 AM Indication:ETT and CVC placementComparison: 08/17/2022 FINDINGS: Lines/Tubes/Devices: Right IJ CVC in place terminatingnear the cavoatrial junction. Endotracheal tube in place with distal tip measuring 0.8 cm above the gavi, recommend 2 cm retraction. Enteric tube in place seen coursing below the diaphragm with the distal tip and side port below the GE junction. Lungs/pleura:Borderline lung volumes. Central vascularprominence. Retrocardiac opacity. Trace left effusion. No pneumothorax. Heart/Mediastinum:Magnified by portable technique. Bones/Soft Tissues: No acute osseous abnormality. Upper abdomen: Unremarkable.IMPRESSION:Right IJ CVC and enteric tube in appropriate positions.Endotracheal tube distal tip measures 0.8 cm above the gavi, recommend 2 cm retraction.Borderline lung volumes.Retrocardiac opacity may represent atelectasis, aspiration or infectious process. Trace left effusion. Signed: Javier Griffin [facility] Verified Date/Time: 08/18/2022 01:11:31 HEPATIC FUNCTION [id number] 01:06:49 Test Item Value Reference Range Interpretation Comments TOTAL PROTEIN (BEAKER) (test code = 4.0 gm/dL 6.0-8.3 L 770) ALBUMIN (BEAKER) (test code = 1145) 2.2 g/dL 3.5-5.0 L BILIRUBIN TOTAL (BEAKER) (test code 5.5 mg/dL 0.2-1.2 H = 377) BILIRUBIN DIRECT (BEAKER) (test 3.2 mg/dL 0.1-0.5 H code = 706) ALKALINE PHOSPHATASE (BEAKER) (test 81 U/L 40-150 code = 346) AST (SGOT) (BEAKER) (test code = 674 U/L 5-34 H 353) ALT (SGPT) (BEAKER) (test code = 464 U/L 6-55 H 347) Software Quality Tester ID - ADMINSpecimen moderately [id number] 01:06:48 Test Item Value Reference Range Interpretation Comments MAGNESIUM (BEAKER) (test code = 1.6 mg/dL 1.6-2.6 627) Software Quality Tester ID - [id number] 01:06:48 Test Item Value Reference Range Interpretation Comments PHOSPHORUS (BEAKER) (test code = 5.7 mg/dL 2.3-4.7 H 604) Software Quality Tester ID - ADMINLACTIC ACID, [id number] 01:01:08 Test Item Value Reference Range Interpretation Comments LACTATE BLOOD 2.0 mmol/L 0.5-2.2 Specimen sligh tly ARTERIAL (2) (BEAKER) hemoly zed (test code = 2874) Software Quality Tester ID - ADMINSpecimen slightly ictericCBC W/PLT COUNT & AUTO [id number] 00:54:07 Test Item Value Reference Range Interpretation Comments WHITE BLOOD CELL COUNT 15.6 K/ L 3.5-10.5 H (BEAKER) (test code = 775) RED BLOOD CELL COUNT 3.68 M/ L 4.63-6.08 L (BEAKER) (test code = 761) HEMOGLOBIN (BEAKER) 9.9 GM/DL 13.7-17.5 L (test code = 410) HEMATOCRIT (BEAKER) 30.5 % 40.1-51.0 L (test code = 411) MEAN CORPUSCULAR 83 fL 79-92 Discordant results VOLUME (BEAKER) (test compar ed to previous code = 753) results; clinic al correlation req uired MEAN CORPUSCULAR 26.9 pg 25.7-32.2 HEMOGLOBIN (BEAKER) (test code = 751) MEAN CORPUSCULAR 32.5 GM/DL 32.3-36.5 HEMOGLOBIN CONC (BEAKER) (test code = 752) RED CELL DISTRIBUTION 17.2 % 11.6-14.4 H WIDTH (BEAKER) (test code = 412) PLATELET COUNT 78 K/CU MM 150-450 L (BEAKER) (test code = 756) MEAN PLATELET VOLUME 11.4 fL 9.4-12.4 (BEAKER) (test code = 754) NUCLEATED RED BLOOD 0 /100 WBC 0-0 CELLS (BEAKER) (test code = 413) NEUTROPHILS RELATIVE 86 % PERCENT (BEAKER) (test code = 429) LYMPHOCYTES RELATIVE 5 % PERCENT (BEAKER) (test code = 430) MONOCYTES RELATIVE 9 % PERCENT (BEAKER) (test code = 431) EOSINOPHILS RELATIVE 0 % PERCENT (BEAKER) (test code = 432) BASOPHILS RELATIVE 0 % PERCENT (BEAKER) (test code = 437) NEUTROPHILS ABSOLUTE 13.38 K/ L 1.78-5.38 H COUNT (BEAKER) (test code = 670) LYMPHOCYTES ABSOLUTE 0.83 K/ L 1.32-3.57 L COUNT (BEAKER) (test code = 414) MONOCYTES ABSOLUTE 1.33 K/ L 0.30-0.82 H COUNT (BEAKER) (test code = 415) EOSINOPHILS ABSOLUTE 0.00 K/ L 0.04-0.54 L COUNT (BEAKER) (test code = 416) BASOPHILS ABSOLUTE 0.01 K/ L 0.01-0.08 COUNT (BEAKER) (test code = 417) IMMATURE 0.60 % 0.00-1.00 GRANULOCYTES-RELATIVE PERCENT (BEAKER) (test code = 2801) CALCIUM, [id number] 00:39:28 Test Item Value Reference Range Interpretation Comments CALCIUM IONIZED (BEAKER) (test 1.34 mmol/L 1.12-1.27 H code = 698) PH, BLOOD (BEAKER) (test code = 7.45 1810) BLOOD GAS, [id number] 00:39:23 Test Item Value Reference Range Interpretation Comments PH ARTERIAL (BEAKER) (test code = 7.44 7.35-7.45 383) PCO2 ARTERIAL (BEAKER) (test code 45 mm Hg 35-45 = 384) PO2 ARTERIAL (BEAKER) (test code = 110 mm Hg 80-90 H 385) O2 SATURATION ARTERIAL (BEAKER) 98.0 % 96.0-97.0 H (test code = 386) HCO3 ARTERIAL (BEAKER) (test code 29 mmol/L 21-29 = 388) BASE EXCESS ARTERIAL (BEAKER) 4.9 mmol/L -2.0-3.0 H (test code = 387) PATIENT TEMPERATURE (BEAKER) (test 37.7 code = 1818) FIO2 (BEAKER) (test code = 1819) 60.0 RAD, CHEST, 1 VIEW, NON [id number] 00:13:00REFERRING : CHERELLE SALVADOR Chronic Liver Failure pending Transplantation.Reason for exam:->pre opShould this be performed at the bedside?->Yes [facility] : 1955 Sex: MFINAL REPORT History: pre op. Surgery unspecified Comparison: 12/24/2019 Findings: A single view of the chest is submitted. The cardiac silhouette is within normal limits for size. There is atherosclerotic calcification of the aorta. There is no focal consolidation, pneumothorax, large pleural effusion or evidence of overt pulmonary edema. There is no acute bony abnormality. Impression: No acute abnormality. Signed: Fernando Brandon [facility] Verified Date/Time: 08/18/2022 00:13:44 CALCIUM, [id number] 22:58:53 Test Item Value Reference Range Interpretation Comments CALCIUM IONIZED (BEAKER) (test 1.43 mmol/L 1.12-1.27 H code = 698) PH, BLOOD (BEAKER) (test code = 7.44 1810) BLOOD GAS, [id number] 22:58:48 Test Item Value Reference Range Interpretation Comments PH ARTERIAL (BEAKER) (test code = 7.44 7.35-7.45 383) PCO2 ARTERIAL (BEAKER) (test code 42 mm Hg 35-45 = 384) PO2 ARTERIAL (BEAKER) (test code = 233 mm Hg 80-90 H 385) O2 SATURATION ARTERIAL (BEAKER) 99.5 % 96.0-97.0 H (test code = 386) HCO3 ARTERIAL (BEAKER) (test code 28 mmol/L 21-29 = 388) BASE EXCESS ARTERIAL (BEAKER) 3.1 mmol/L -2.0-3.0 H (test code = 387) PATIENT TEMPERATURE (BEAKER) (test 37.1 code = 1818) FIO2 (BEAKER) (test code = 1819) 100.0 HGB/HCT (H&H) - STAT [id number] 22:58:47 Test Item Value Reference Range Interpretation Comments HEMOGLOBIN (BEAKER) (test code = 10.2 GM/DL 13.0-16.8 L 410) HEMATOCRIT (BEAKER) (test code = 30.0 % 40.0-50.0 L 411) POTASSIUM-STAT [id number] 22:57:36 Test Item Value Reference Range Interpretation Comments POTASSIUM (BEAKER) (test code = 4.4 meq/L 3.6-5.5 379) GLUCOSE-STAT [id number] 22:57:35 Test Item Value Reference Range Interpretation Comments GLUCOSE RANDOM (BEAKER) (test code 261 mg/dL 70-110 H = 652) SODIUM NA-STAT [id number] 22:57:35 Test Item Value Reference Range Interpretation Comments SODIUM (BEAKER) (test code = 381) 139 meq/L 136-145 CALCIUM, [id number] 22:27:00 Test Item Value Reference Range Interpretation Comments CALCIUM IONIZED (BEAKER) (test 1.30 mmol/L 1.12-1.27 H code = 698) PH, BLOOD (BEAKER) (test code = 7.42 1810) BLOOD GAS, [id number] 22:27:00 Test Item Value Reference Range Interpretation Comments PH ARTERIAL (BEAKER) (test code = 7.42 7.35-7.45 383) PCO2 ARTERIAL (BEAKER) (test code 45 mm Hg 35-45 = 384) PO2 ARTERIAL (BEAKER) (test code = 231 mm Hg 80-90 H 385) O2 SATURATION ARTERIAL (BEAKER) 99.5 % 96.0-97.0 H (test code = 386) HCO3 ARTERIAL (BEAKER) (test code 29 mmol/L 21-29 = 388) BASE EXCESS ARTERIAL (BEAKER) 3.5 mmol/L -2.0-3.0 H (test code = 387) PATIENT TEMPERATURE (BEAKER) (test 36.7 code = 1818) FIO2 (BEAKER) (test code = 1819) 100.0 HGB/HCT (H&H) - STAT [id number] 22:27:00 Test Item Value Reference Range Interpretation Comments HEMOGLOBIN (BEAKER) (test code = 9.6 GM/DL 13.0-16.8 L 410) HEMATOCRIT (BEAKER) (test code = 28.0 % 40.0-50.0 L 411) POTASSIUM-STAT [id number] 22:26:38 Test Item Value Reference Range Interpretation Comments POTASSIUM (BEAKER) (test code = 4.2 meq/L 3.6-5.5 379) GLUCOSE-STAT [id number] 22:26:37 Test Item Value Reference Range Interpretation Comments GLUCOSE RANDOM (BEAKER) (test code 264 mg/dL 70-110 H = 652) SODIUM NA-STAT [id number] 22:26:37 Test Item Value Reference Range Interpretation Comments SODIUM (BEAKER) (test code = 381) 138 meq/L 136-145 BLOOD GAS, [id number] 21:56:45 Test Item Value Reference Range Interpretation Comments PH ARTERIAL (BEAKER) (test code = 7.43 7.35-7.45 383) PCO2 ARTERIAL (BEAKER) (test code 43 mm Hg 35-45 = 384) PO2 ARTERIAL (BEAKER) (test code = 272 mm Hg 80-90 H 385) O2 SATURATION ARTERIAL (BEAKER) 99.6 % 96.0-97.0 H (test code = 386) HCO3 ARTERIAL (BEAKER) (test code 28 mmol/L 21-29 = 388) BASE EXCESS ARTERIAL (BEAKER) 3.2 mmol/L -2.0-3.0 H (test code = 387) PATIENT TEMPERATURE (BEAKER) (test 36.3 code = 1818) FIO2 (BEAKER) (test code = 1819) 100.0 HGB/HCT (H&H) - STAT [id number] 21:56:45 Test Item Value Reference Range Interpretation Comments HEMOGLOBIN (BEAKER) (test code = 9.6 GM/DL 13.0-16.8 L 410) HEMATOCRIT (BEAKER) (test code = 28.0 % 40.0-50.0 L 411) CALCIUM, [id number] 21:56:44 Test Item Value Reference Range Interpretation Comments CALCIUM IONIZED (BEAKER) (test 1.35 mmol/L 1.12-1.27 H code = 698) PH, BLOOD (BEAKER) (test code = 7.42 1810) POTASSIUM-STAT [id number] 21:55:48 Test Item Value Reference Range Interpretation Comments POTASSIUM (BEAKER) (test code = 4.0 meq/L 3.6-5.5 379) GLUCOSE-STAT [id number] 21:55:47 Test Item Value Reference Range Interpretation Comments GLUCOSE RANDOM (BEAKER) (test code 261 mg/dL 70-110 H = 652) SODIUM NA-STAT [id number] 21:55:47 Test Item Value Reference Range Interpretation Comments SODIUM (BEAKER) (test code = 381) 138 meq/L 136-145 CALCIUM, [id number] 21:29:13 Test Item Value Reference Range Interpretation Comments CALCIUM IONIZED (BEAKER) (test 1.43 mmol/L 1.12-1.27 H code = 698) PH, BLOOD (BEAKER) (test code = 7.44 1810) HGB/HCT (H&H) - STAT [id number] 21:29:07 Test Item Value Reference Range Interpretation Comments HEMOGLOBIN (BEAKER) (test code = 9.6 GM/DL 13.0-16.8 L 410) HEMATOCRIT (BEAKER) (test code = 28.0 % 40.0-50.0 L 411) BLOOD GAS, [id number] 21:29:06 Test Item Value Reference Range Interpretation Comments PH ARTERIAL (BEAKER) (test code = 7.46 7.35-7.45 H 383) PCO2 ARTERIAL (BEAKER) (test code 40 mm Hg 35-45 = 384) PO2 ARTERIAL (BEAKER) (test code = 267 mm Hg 80-90 H 385) O2 SATURATION ARTERIAL (BEAKER) 99.7 % 96.0-97.0 H (test code = 386) HCO3 ARTERIAL (BEAKER) (test code 28 mmol/L 21-29 = 388) BASE EXCESS ARTERIAL (BEAKER) 3.6 mmol/L -2.0-3.0 H (test code = 387) PATIENT TEMPERATURE (BEAKER) (test 35.8 code = 1818) FIO2 (BEAKER) (test code = 1819) 100.0 GLUCOSE-STAT [id number] 21:28:45 Test Item Value Reference Range Interpretation Comments GLUCOSE RANDOM (BEAKER) (test code 295 mg/dL 70-110 H = 652) SODIUM NA-STAT [id number] 21:28:45 Test Item Value Reference Range Interpretation Comments SODIUM (BEAKER) (test code = 381) 138 meq/L 136-145 POTASSIUM-STAT [id number] 21:28:45 Test Item Value Reference Range Interpretation Comments POTASSIUM (BEAKER) (test code = 3.9 meq/L 3.6-5.5 379) BLOOD GAS, [id number] 21:22:19 Test Item Value Reference Range Interpretation Comments PH ARTERIAL (BEAKER) (test code 7.49 7.35-7.45 H = 383) PCO2 ARTERIAL (BEAKER) (test 15 mm Hg 35-45 LL code = 384) PO2 ARTERIAL (BEAKER) (test code 238 mm Hg 80-90 H = 385) O2 SATURATION ARTERIAL (BEAKER) 99.6 % 96.0-97.0 H (test code = 386) HCO3 ARTERIAL (BEAKER) (test 11 mmol/L 21-29 L code = 388) BASE EXCESS ARTERIAL (BEAKER) -12.0 mmol/L -2.0-3.0 L (test code = 387) PATIENT TEMPERATURE (BEAKER) 35.7 (test code = 1818) FIO2 (BEAKER) (test code = 1819) 100.0 POTASSIUM-STAT [id number] 21:22:03 Test Item Value Reference Range Interpretation Comments POTASSIUM (BEAKER) (test code = 1.4 meq/L 3.6-5.5 LL 379) HGB/HCT (H&H) - STAT [id number] 21:21:37 Test Item Value Reference Range Interpretation Comments HEMOGLOBIN (BEAKER) (test code = 4.3 GM/DL 13.0-16.8 LL 410) HEMATOCRIT (BEAKER) (test code = 13.0 % 40.0-50.0 L 411) CALCIUM, [id number] 21:20:44 Test Item Value Reference Range Interpretation Comments CALCIUM IONIZED (BEAKER) (test 0.85 mmol/L 1.12-1.27 L code = 698) PH, BLOOD (BEAKER) (test code = 7.47 1810) GLUCOSE-STAT [id number] 21:20:22 Test Item Value Reference Range Interpretation Comments GLUCOSE RANDOM (BEAKER) (test code = 65 mg/dL 70-110 L 652) SODIUM NA-STAT [id number] 21:20:22 Test Item Value Reference Range Interpretation Comments SODIUM (BEAKER) (test code = 381) 140 meq/L 136-145 BLOOD GAS, [id number] 20:59:44 Test Item Value Reference Range Interpretation Comments PH ARTERIAL (BEAKER) (test code = 7.43 7.35-7.45 383) PCO2 ARTERIAL (BEAKER) (test code 39 mm Hg 35-45 = 384) PO2 ARTERIAL (BEAKER) (test code = 225 mm Hg 80-90 H 385) O2 SATURATION ARTERIAL (BEAKER) 99.5 % 96.0-97.0 H (test code = 386) HCO3 ARTERIAL (BEAKER) (test code 25 mmol/L 21-29 = 388) BASE EXCESS ARTERIAL (BEAKER) 0.8 mmol/L -2.0-3.0 (test code = 387) PATIENT TEMPERATURE (BEAKER) (test 36.4 code = 1818) FIO2 (BEAKER) (test code = 1819) 100.0 HGB/HCT (H&H) - STAT [id number] 20:59:33 Test Item Value Reference Range Interpretation Comments HEMOGLOBIN (BEAKER) (test code = 9.9 GM/DL 13.0-16.8 L 410) HEMATOCRIT (BEAKER) (test code = 29.0 % 40.0-50.0 L 411) SODIUM NA-STAT [id number] 20:59:02 Test Item Value Reference Range Interpretation Comments SODIUM (BEAKER) (test code = 381) 137 meq/L 136-145 POTASSIUM-STAT [id number] 20:59:02 Test Item Value Reference Range Interpretation Comments POTASSIUM (BEAKER) (test code = 4.1 meq/L 3.6-5.5 379) GLUCOSE-STAT [id number] 20:59:01 Test Item Value Reference Range Interpretation Comments GLUCOSE RANDOM (BEAKER) (test code 152 mg/dL 70-110 H = 652) CALCIUM, [id number] 20:57:41 Test Item Value Reference Range Interpretation Comments CALCIUM IONIZED (BEAKER) (test 1.25 mmol/L 1.12-1.27 code = 698) PH, BLOOD (BEAKER) (test code = 7.42 1810) CALCIUM, [id number] 20:11:47 Test Item Value Reference Range Interpretation Comments CALCIUM IONIZED (BEAKER) (test 0.86 mmol/L 1.12-1.27 L code = 698) PH, BLOOD (BEAKER) (test code = 7.38 1810) BLOOD GAS, [id number] 20:11:47 Test Item Value Reference Range Interpretation Comments PH ARTERIAL (BEAKER) (test code = 7.40 7.35-7.45 383) PCO2 ARTERIAL (BEAKER) (test code 39 mm Hg 35-45 = 384) PO2 ARTERIAL (BEAKER) (test code 325 mm Hg 80-90 H = 385) O2 SATURATION ARTERIAL (BEAKER) 99.7 % 96.0-97.0 H (test code = 386) HCO3 ARTERIAL (BEAKER) (test code 23 mmol/L 21-29 = 388) BASE EXCESS ARTERIAL (BEAKER) -1.7 mmol/L -2.0-3.0 (test code = 387) PATIENT TEMPERATURE (BEAKER) 36.0 (test code = 1818) FIO2 (BEAKER) (test code = 1819) 100.0 HGB/HCT (H&H) - STAT [id number] 20:11:47 Test Item Value Reference Range Interpretation Comments HEMOGLOBIN (BEAKER) (test code = 11.2 GM/DL 13.0-16.8 L 410) HEMATOCRIT (BEAKER) (test code = 33.0 % 40.0-50.0 L 411) POTASSIUM-STAT [id number] 20:11:36 Test Item Value Reference Range Interpretation Comments POTASSIUM (BEAKER) (test code = 3.9 meq/L 3.6-5.5 379) GLUCOSE-STAT [id number] 20:11:36 Test Item Value Reference Range Interpretation Comments GLUCOSE RANDOM (BEAKER) (test code 163 mg/dL 70-110 H = 652) SODIUM NA-STAT [id number] 20:11:35 Test Item Value Reference Range Interpretation Comments SODIUM (BEAKER) (test code = 381) 136 meq/L 136-145 CALCIUM, [id number] 19:16:27 Test Item Value Reference Range Interpretation Comments CALCIUM IONIZED (BEAKER) (test 0.97 mmol/L 1.12-1.27 L code = 698) PH, BLOOD (BEAKER) (test code = 7.41 1810) BLOOD GAS, [id number] 19:16:27 Test Item Value Reference Range Interpretation Comments PH ARTERIAL (BEAKER) (test code = 7.42 7.35-7.45 383) PCO2 ARTERIAL (BEAKER) (test code 36 mm Hg 35-45 = 384) PO2 ARTERIAL (BEAKER) (test code 308 mm Hg 80-90 H = 385) O2 SATURATION ARTERIAL (BEAKER) 99.7 % 96.0-97.0 H (test code = 386) HCO3 ARTERIAL (BEAKER) (test code 23 mmol/L 21-29 = 388) BASE EXCESS ARTERIAL (BEAKER) -1.6 mmol/L -2.0-3.0 (test code = 387) PATIENT TEMPERATURE (BEAKER) 36.0 (test code = 1818) FIO2 (BEAKER) (test code = 1819) 100.0 HGB/HCT (H&H) - STAT [id number] 19:16:27 Test Item Value Reference Range Interpretation Comments HEMOGLOBIN (BEAKER) (test code = 11.7 GM/DL 13.0-16.8 L 410) HEMATOCRIT (BEAKER) (test code = 34.0 % 40.0-50.0 L 411) POTASSIUM-STAT [id number] 19:16:09 Test Item Value Reference Range Interpretation Comments POTASSIUM (BEAKER) (test code = 3.6 meq/L 3.6-5.5 379) SODIUM NA-STAT [id number] 19:16:04 Test Item Value Reference Range Interpretation Comments SODIUM (BEAKER) (test code = 381) 137 meq/L 136-145 GLUCOSE-STAT [id number] 19:16:03 Test Item Value Reference Range Interpretation Comments GLUCOSE RANDOM (BEAKER) (test code 119 mg/dL 70-110 H = 652) HGB/HCT (H&H) - STAT [id number] 18:16:17 Test Item Value Reference Range Interpretation Comments HEMOGLOBIN (BEAKER) (test code = 10.7 GM/DL 13.0-16.8 L 410) HEMATOCRIT (BEAKER) (test code = 31.0 % 40.0-50.0 L 411) CALCIUM, [id number] 18:16:16 Test Item Value Reference Range Interpretation Comments CALCIUM IONIZED (BEAKER) (test 1.02 mmol/L 1.12-1.27 L code = 698) PH, BLOOD (BEAKER) (test code = 7.45 1810) BLOOD GAS, [id number] 18:16:16 Test Item Value Reference Range Interpretation Comments PH ARTERIAL (BEAKER) (test code = 7.46 7.35-7.45 H 383) PCO2 ARTERIAL (BEAKER) (test code 35 mm Hg 35-45 = 384) PO2 ARTERIAL (BEAKER) (test code = 374 mm Hg 80-90 H 385) O2 SATURATION ARTERIAL (BEAKER) 99.8 % 96.0-97.0 H (test code = 386) HCO3 ARTERIAL (BEAKER) (test code 25 mmol/L 21-29 = 388) BASE EXCESS ARTERIAL (BEAKER) 0.7 mmol/L -2.0-3.0 (test code = 387) PATIENT TEMPERATURE (BEAKER) (test 36.0 code = 1818) FIO2 (BEAKER) (test code = 1819) 100.0 POTASSIUM-STAT [id number] 18:16:16 Test Item Value Reference Range Interpretation Comments POTASSIUM (BEAKER) (test code = 3.3 meq/L 3.6-5.5 L 379) SODIUM NA-STAT [id number] 18:15:56 Test Item Value Reference Range Interpretation Comments SODIUM (BEAKER) (test code = 381) 135 meq/L 136-145 L GLUCOSE-STAT [id number] 18:15:51 Test Item Value Reference Range Interpretation Comments GLUCOSE RANDOM (BEAKER) (test code = 90 mg/dL 70-110 652) [id number] 15:58:24 Test Item Value Reference Range Interpretation Comments T3 TOTAL (BEAKER) (test code = 0.73 ng/mL 0.60-1.81 656) Software Quality Tester ID - [id number] 15:02:29 Test Item Value Reference Range Interpretation Comments T4 TOTAL (BEAKER) (test code = 895) 4.9 ug/dL 4.9-11.7 Software Quality Tester ID - [id number] ([facility])2022-08-17 14:16:24 Test Item Value Reference Range Interpretation Comments SARS-COV2/RT-PCR Negative Negative The SARS-Co V-2 target (test code = nucleic acids a re not [id number]) detected in thi s specimen. Negative result s do not preclude SARS-C oV-2 infection and s hould not be used as the jese e basis for patient managem ent decisions. Nega tive results must be combine d with clinical observ ations, patient history , and epidemiological information. A false negativ e result may occur if a spec imen is improperly cayla ected, transported or handled. This SARS CoV-2 test is a rapid, real-time RT-PC R test intended for th e qualitative detection of nu cleic acid from SARS-CoV-2 in a nasopharyngeal swab specimen collected from individuals suspected of CO VID-19 by their healthcar e provider. This test has been authorized by FDA under an EUA for use by authorized laboratories. This test is only authorized for the duration of the declaration that circumstances exist justifying the authorization of emergency use of in vitro diagnostic tests for detection and/or diagnosis of COVID-19 under Section 564(b)(1) of the Federal Food, Drug and Cosmetic Act, 21 U.S.C. 360bbb-3(b)(1), unless the authorization is terminated or revoked sooner. Fact Sheet for Healthcare Providers: https://www.[employer].co m/Documents/Xpert%20Xpress%20SARS%20CoV-2/Fact%20Sheets/302-5856%24PLPU-PIK-2%20 HEALTHCARE%20PROVIDERS%20FACT%20SHEET.pdf Fact Sheet for Healthcare Patients: https://www.[employer]/Documents/Xpert%20Xp ress%20SARS%20CoV-2/Fact%20Sheets/302-3801%19TYNC-HNC-1%20PATIENT%20FACT%20SHEET .pdfHEPATITIS B [id number] 14:16:11 Test Item Value Reference Range Interpretation Comments HEPATITIS B CORE TOTAL ANTIBODY Nonreactive Nonreactive (BEAKER) (test code = 497) HEPATITIS B SURFACE ANTIBODY < mIU/mL <8.0 (BEAKER) (test code = 647) HEPATITIS B SURFACE ANTIGEN (2) Nonreactive Nonreactive (BEAKER) (test code = 2585) Software Quality Tester ID - [id number] 14:07:15 Test Item Value Reference Range Interpretation Comments THYROID STIMULATING HORMONE 1.645 uIU/mL 0.350-4.940 (BEAKER) (test code = 772) Software Quality Tester ID - ADMINHEPATITIS C [id number] 14:07:15 Test Item Value Reference Range Interpretation Comments HEPATITIS C ANTIBODY (BEAKER) Nonreactive Nonreactive (test code = 367) Software Quality Tester ID - ADMINHIV-1 ANTIGEN WITH HIV-1/2 [id number] 14:07:15 Test Item Value Reference Range Interpretation Comments HIV-1 ANTIGEN WITH HIV 1\\T\\2 Nonreactive Nonreactive ANTIBODY (2) (BEAKER) (test code = 2586) Software Quality Tester ID - ADMINCOMPREHENSIVE METABOLIC [id number] 13:47:12 Test Item Value Reference Range Interpretation Comments TOTAL PROTEIN 5.9 gm/dL 6.0-8.3 L (BEAKER) (test code = 770) ALBUMIN (BEAKER) 2.7 g/dL 3.5-5.0 L (test code = 1145) ALKALINE 168 U/L 40-150 H PHOSPHATASE (BEAKER) (test code = 346) BILIRUBIN TOTAL 1.8 mg/dL 0.2-1.2 H (BEAKER) (test code = 377) SODIUM (BEAKER) 136 meq/L 136-145 (test code = 381) POTASSIUM (BEAKER) 3.4 meq/L 3.5-5.1 L (test code = 379) CHLORIDE (BEAKER) 109 meq/L 98-107 H (test code = 382) CO2 (BEAKER) (test 26 meq/L 22-29 code = 355) BLOOD UREA 6 mg/dL 7-21 L NITROGEN (BEAKER) (test code = 354) CREATININE 0.69 mg/dL 0.57-1.25 (BEAKER) (test code = 358) GLUCOSE RANDOM 109 mg/dL 70-105 H (BEAKER) (test code = 652) CALCIUM (BEAKER) 8.0 mg/dL 8.4-10.2 L (test code = 697) AST (SGOT) 42 U/L 5-34 H (BEAKER) (test code = 353) ALT (SGPT) 35 U/L 6-55 (BEAKER) (test code = 347) EGFR (BEAKER) 102 Interpretatio n of eGFR (test code = 1092) mL/min/1.[address] age Description sq m Result G1 Shahnaz l or [...] not appl icable for dialysis patien ts Software Quality Tester ID - ADMINSpecimen slightly ictericGAMMA GLUTAMYL TRANSFERASE (GGT) 2022-08-17 13:47:12 Test Item Value Reference Range Interpretation Comments GAMMA GLUTAMYL TRANSFERASE (BEAKER) 51 U/L 9-64 (test code = 364) Software Quality Tester ID - ADMINSpecimen slightly [id number] 13:47:11 Test Item Value Reference Range Interpretation Comments MAGNESIUM (BEAKER) (test code = 1.4 mg/dL 1.6-2.6 L 627) Software Quality Tester ID - [id number] 13:47:11 Test Item Value Reference Range Interpretation Comments PHOSPHORUS (BEAKER) (test code = 3.1 mg/dL 2.3-4.7 604) Software Quality Tester ID - [id number] 13:37:06 Test Item Value Reference Range Interpretation Comments PARTIAL THROMBOPLASTIN TIME 32.8 seconds 22.5-36.0 (BEAKER) (test code = 760) PROTHROMBIN [id number] 13:36:25 Test Item Value Reference Range Interpretation Comments PROTIME (BEAKER) (test code = 16.6 seconds 11.9-14.2 H 759) INR (BEAKER) (test code = 370) 1.43 <=5.90 RECOMMENDED COUMADIN/WARFARIN INR THERAPY RANGESSTANDARD DOSE: 2.0 - 3.0 Includes: PROPHYLAXIS for venous thrombosis, systemic embolization; TREATMENT for venous thrombosis and/or pulmonary embolus.HIGH RISK: Target INR is 2.5-3.5 for patients with mechanical heart valves.CBC W/PLT COUNT & AUTO [id number] 13:28:29 Test Item Value Reference Range Interpretation Comments WHITE BLOOD CELL COUNT 4.4 K/ L 3.5-10.5 (BEAKER) (test code = 775) RED BLOOD CELL COUNT 4.49 M/ L 4.63-6.08 L (BEAKER) (test code = 761) HEMOGLOBIN (BEAKER) 10.7 GM/DL 13.7-17.5 L (test code = 410) HEMATOCRIT (BEAKER) 34.1 % 40.1-51.0 L (test code = 411) MEAN CORPUSCULAR VOLUME 76 fL 79-92 L (BEAKER) (test code = 753) MEAN CORPUSCULAR 23.8 pg 25.7-32.2 L HEMOGLOBIN (BEAKER) (test code = 751) MEAN CORPUSCULAR 31.4 GM/DL 32.3-36.5 L HEMOGLOBIN CONC (BEAKER) (test code = 752) RED CELL DISTRIBUTION 17.5 % 11.6-14.4 H WIDTH (BEAKER) (test code = 412) PLATELET COUNT (BEAKER) 61 K/CU MM 150-450 L (test code = 756) MEAN PLATELET VOLUME Unable to report due (BEAKER) (test code = to abn ormal Platelet 754) population distribution. NUCLEATED RED BLOOD 0 /100 WBC 0-0 CELLS (BEAKER) (test code = 413) NEUTROPHILS RELATIVE 46 % PERCENT (BEAKER) (test code = 429) LYMPHOCYTES RELATIVE 35 % PERCENT (BEAKER) (test code = 430) MONOCYTES RELATIVE 14 % PERCENT (BEAKER) (test code = 431) EOSINOPHILS RELATIVE 4 % PERCENT (BEAKER) (test code = 432) BASOPHILS RELATIVE 1 % PERCENT (BEAKER) (test code = 437) NEUTROPHILS ABSOLUTE 2.02 K/ L 1.78-5.38 COUNT (BEAKER) (test code = 670) LYMPHOCYTES ABSOLUTE 1.51 K/ L 1.32-3.57 COUNT (BEAKER) (test code = 414) MONOCYTES ABSOLUTE 0.61 K/ L 0.30-0.82 COUNT (BEAKER) (test code = 415) EOSINOPHILS ABSOLUTE 0.18 K/ L 0.04-0.54 COUNT (BEAKER) (test code = 416) BASOPHILS ABSOLUTE 0.03 K/ L 0.01-0.08 COUNT (BEAKER) (test code = 417) IMMATURE 0.70 % 0.00-1.00 GRANULOCYTES-RELATIVE PERCENT (BEAKER) (test code = 2801) STAT-LAB IONIZED [id number] 13:26:42 Test Item Value Reference Range Interpretation Comments FILTER IONIZED CALCIUM (BEAKER) 1.03 nnol/L (test code = 1854) Reference Range: No NormalsCT, CHEST, WITHOUT [id number] 11:39:00 REFERRING MD: CHERELLE SALVADOR Unlisted Reason for Exam - Click Yes and Enter Reason Below->YesUnlisted Reason for Exam->Hepatocellular carcinoma [facility] LUIS : 1955 Sex: MFINAL REPORT CT Chest [...] Ankit Gaines MDReport Verified Date/Time: 05/22/2022 11:39:18 MR, ABDOMEN, [id number] 14:59:00REFERRING MD: CHERELLE SALVADOR Unlisted Reason for Exam - Click Yes and Enter Reason Below->YesUnlisted Reason for Exam->[facility]ocellular [facility] : 1955 Sex: MFINAL REPORT MRI of the abdomen with and [...] cavity in segment eight is now miniscule insize, no evidence of recurrent or residual disease. LR-TR nonviable. *An 8 mm treatment cavity in segment three is stable in size, it demonstrates stable mild rim enhancement. LR-TR nonviable. *A previo usly seen LI-RADS 3 observation in segment seven [...] suspicious liver mass. Cirrhosis and splenomegaly. Signed: [facility] Verified Date/Time: 05/21/2022 14:59:42 ALPHA FETOPROTEIN (AFP), TUMOR [id number] 12:23:11 Test Item Value Reference Range Interpretation Comments ALPHA-FETOPROTEIN (BEAKER) (test code < ng/mL <10.0 = 1094) Software Quality Tester ID - MITCHCBC W/PLT COUNT & AUTO [id number] 11:00:53 Test Item Value Reference Range Interpretation [...] (BEAKER) (test code = 2801) HEPATIC FUNCTION [id number] 11:00:04 Test Item Value Reference Range Interpretation [...] (test code = 28 U/L 6-55 347) Software Quality Tester ID - BETTE GBASIC METABOLIC [id number] 10:59:58 Test Item Value Reference Range Interpretation [...] not appl icable for dialysis patien ts Software Quality Tester ID - BETTE GPROTHROMBIN TIME/[id number] 10:51:01 Test Item Value Reference Range Interpretation Comments PROTIME (BEAKER) 16.9 seconds 11.9-14.2 H (test code = 759) INR (BEAKER) (test 1.46 See_Comment [Automat ed message] code = 370) The system [employer] generated this result transmitted ref erence range: <=5.90. The reference range was not used to int erpret this result as normal/abnormal . RECOMMENDED COUMADIN/WARFARIN INR THERAPY RANGESSTANDARD DOSE: 2.0 - 3.0 Includes: PROPHYLAXIS for venous thrombosis, systemic embolization; TREATMENT for venous thrombosis and/or pulmonary embolus.HIGH RISK: Target INR is 2.5-3.5 for patients with mechanical heart valves.[id number] 09:52:00 Test Item Value Reference Range Interpretation Comments Ferritin, Serum (test code = 2276-4) 16 ng/mL 24-380 L Lab Interpretation (test code = Abnormal 55546-7) [facility] with platelet count + automated [id number] 09:52:00 Test Item Value Reference Range Interpretation Comments WBC (test code = 7.2 See_Comment [Automated message] ) The system [employer] generated this result transmit lisa reference range : 3.8 - 10.8 Thousand /uL. The reference r mela was not used to interpret this result as normal/abnormal . RBC (test code = 789-8) 4.03 See_Comment L [Au tomated message] The system [employer] generated this result transmit lisa reference range [...] L [Aut omated message] ) The system [employer] generated this result transmit lisa reference range : 140 - 400 Thousand/ uL. The reference r mela was not used to interpret this result as normal/abnormal . MPV (test code = 7.5-12.5 Due to plat elet or 2790240) RBC variability in size or shapeth e result cannot b e reported accura tely. # Neutros (test code = 4284 See_Comment [Aut omated message] 20191222) The system [employer] generated this result transmit lisa reference range : 1,500 - 7,800 cells/uL. The reference range was not used to interpret this result as normal/abnormal . # Lymphs (test code = 1879 See_Comment [Auto mated message] 731-0) The system [employer] generated this result transmit lisa reference range : 850 - 3,900 cells/u L. The reference r mela was not used to interpret this result as normal/abnormal . # Monos (test code = 871 See_Comment [Autom ated message] ) The system [employer] generated this result transmit lisa reference range : 200 - 950 cells/uL. The reference range was not used to interpret this result as normal/abnormal . # Eos (test code = 108 See_Comment [Automat ed message] 1-2) The system [employer] generated this result transmit lisa reference range : 15 - 500 cells/uL. The reference range was not used to interpret this result as normal/abnormal . # Baso (test code = 58 See_Comment [Automa lisa message] 4-7) The system [employer] generated this result transmit lisa reference range [...] 20191218) Lab Interpretation (test Abnormal code = 48424-6) [facility], % sat. (without ferritin)2022-01-08 09:52:00 Test Item Value Reference Range Interpretation Comments Iron (test code = 21 See_Comment L [Automate d message] ) The system [employer] generated this result transmitted ref erence range: 50 - 180 mcg/dL. The ref erence range was not u sed to interpret this result as normal/abnor mal. Iron Bind.Cap.(TIBC) 309 See_Comment [Autom ated message] (test code = 7128287) The sy stem which generated this result transmitted ref erence range: 250 - 42 5 mcg/dL (calc). The reference range was not used to int erpret this result as normal/abnormal . Iron % Saturation (test 7 See_Comment L [Au tomated message] code = 4344785) The system [employer] generated this result transmitted ref erence range: 20 - 48 % (calc). The ref erence range was not u sed to interpret this result as normal/abnor mal. Lab Interpretation (test Abnormal code = 30802-4) [facility] [id number] 09:52:00 Test Item Value Reference Range Interpretation Comments Platelet Estimate (test code = DECREASED ADEQUATE A 76519-8) Lab Interpretation (test code = Abnormal 04942-6) [facility] 09:52:00 Test Item Value Reference Range Interpretation Comments Ferritin, Serum (test code = 2276-4) 16 ng/mL 24-380 L Lab Interpretation (test code = Abnormal 85284-0) [facility] + automated [id number] 09:52:00 Test Item Value Reference Range Interpretation Comments WBC (test code = 7.2 See_Comment [Automated message] ) The system [employer] generated this result transmit lisa reference range : 3.8 - 10.8 Thousand /uL. The reference r mela was not used to interpret this result as normal/abnormal . RBC (test code = 789-8) 4.03 See_Comment L [Au tomated message] The system [employer] generated this result transmit lisa reference range [...] L [Aut omated message] ) The system [employer] generated this result transmit lisa reference range : 140 - 400 Thousand/ uL. The reference r mela was not used to interpret this result as normal/abnormal . MPV (test code = 7.5-12.5 Due to plat elet or 4629364) RBC variability in size or shapeth e result cannot b e reported accura tely. # Neutros (test code = 4284 See_Comment [Aut omated message] 20191222) The system [employer] generated this result transmit lisa reference range : 1,500 - 7,800 cells/uL. The reference range was not used to interpret this result as normal/abnormal . # Lymphs (test code = 1879 See_Comment [Auto mated message] 731-0) The system [employer] generated this result transmit lisa reference range : 850 - 3,900 cells/u L. The reference r mela was not used to interpret this result as normal/abnormal . # Monos (test code = 871 See_Comment [Autom ated message] ) The system [employer] generated this result transmit lisa reference range : 200 - 950 cells/uL. The reference range was not used to interpret this result as normal/abnormal . # Eos (test code = 108 See_Comment [Automat ed message] 541-2) The system [employer] generated this result transmit lisa reference range : 15 - 500 cells/uL. The reference range was not used to interpret this result as normal/abnormal . # Baso (test code = 58 See_Comment [Automa lisa message] 144-7) The system [employer] generated this result transmit lisa reference range [...] 20191218) Lab Interpretation (test Abnormal code = 14193-3) [facility], % sat. (without ferritin)2022-01-08 09:52:00 Test Item Value Reference Range Interpretation Comments Iron (test code = 21 See_Comment L [Automate d message] ) The system [employer] h generated this result transmitted ref erence [...] See_Comment L [Au tomated message] code = 2873722) The system w [facility] generated this result transmitted ref erence range: 20 - 48 % (calc). The ref erence range was not u sed to interpret this result as normal/abnor mal. Lab Interpretation (test Abnormal code = 73257-1) [facility] [id number] 09:52:00 Test Item Value Reference Range Interpretation Comments Platelet Estimate (test code = DECREASED ADEQUATE A 86360-5) Lab Interpretation (test code = Abnormal 08053-8) [facility] 09:52:00 Test Item Value Reference Range Interpretation Comments Ferritin, Serum (test code = 2276-4) 16 ng/mL 24-380 L Lab Interpretation (test code = Abnormal 66970-7) [facility] + automated [id number] 09:52:00 Test Item Value Reference Range Interpretation Comments WBC (test code = 7.2 See_Comment [Automated message] ) The system [employer] generated this result transmit lisa reference range : 3.8 - 10.8 Thousand /uL. The reference r mela was not used to interpret this result as normal/abnormal . RBC (test code = 789-8) 4.03 See_Comment L [Au tomated message] The system [employer] generated this result transmit lisa reference range [...] L [Aut omated message] ) The system [employer] generated this result transmit lisa reference range : 140 - 400 Thousand/ uL. The reference r mela was not used to interpret this result as normal/abnormal . MPV (test code = 7.5-12.5 Due to plat elet or 6675473) RBC variability in size or shapeth e result cannot b e reported accura tely. # Neutros (test code = 4284 See_Comment [Aut omated message] 20191222) The system [employer] generated this result transmit lisa reference range : 1,500 - 7,800 cells/uL. The reference range was not used to interpret this result as normal/abnormal . # Lymphs (test code = 1879 See_Comment [Auto mated message] 731-0) The system [employer] generated this result transmit lisa reference range : 850 - 3,900 cells/u L. The reference r mela was not used to interpret this result as normal/abnormal . # Monos (test code = 871 See_Comment [Autom ated message] ) The system [employer] generated this result transmit lisa reference range : 200 - 950 cells/uL. The reference range was not used to interpret this result as normal/abnormal . # Eos (test code = 108 See_Comment [Automat ed message] 711-2) The system [employer] generated this result transmit lisa reference range : 15 - 500 cells/uL. The reference range was not used to interpret this result as normal/abnormal . # Baso (test code = 58 See_Comment [Automa lisa message] 704-7) The system [employer] generated this result transmit lisa reference range [...] 20191218) Lab Interpretation (test Abnormal code = 56045-8) [facility], % sat. (without ferritin)2022-01-08 09:52:00 Test Item Value Reference Range Interpretation Comments Iron (test code = 21 See_Comment L [Automate d message] 4493761) The system [employer] generated this result transmitted ref erence range: 50 - 180 mcg/dL. The ref erence range was not u sed to interpret this result as normal/abnor mal. Iron Bind.Cap.(TIBC) 309 See_Comment [Autom ated message] (test code = 4220234) The sy stem which generated this result transmitted ref erence range: 250 - 42 5 mcg/dL (calc). The reference range was not used to int erpret this result as normal/abnormal . Iron % Saturation (test 7 See_Comment L [Au tomated message] code = 1589513) The system [employer] [facility] generated this result transmitted ref erence range: 20 - 48 % (calc). The ref erence range was not u sed to interpret this result as normal/abnor mal. Lab Interpretation (test Abnormal code = 49359-8) [facility] [id number] 09:52:00 Test Item Value Reference Range Interpretation Comments Platelet Estimate (test code = DECREASED ADEQUATE A 95498-6) Lab Interpretation (test code = Abnormal 31549-8) [facility] 09:52:00 Test Item Value Reference Range Interpretation Comments Ferritin, Serum (test code = 2276-4) 16 ng/mL 24-380 L Lab Interpretation (test code = Abnormal 60040-5) [facility] + automated [id number] 09:52:00 Test Item Value Reference Range Interpretation Comments WBC (test code = 7.2 See_Comment [Automated message] ) The system [employer] generated this result transmit lisa reference range : 3.8 - 10.8 Thousand /uL. The reference r mela was not used to interpret this result as normal/abnormal . RBC (test code = 789-8) 4.03 See_Comment L [Au tomated message] The system [employer] generated this result transmit lisa reference range [...] L [Aut omated message] ) The system [employer] generated this result transmit lisa reference range : 140 - 400 Thousand/ uL. The reference r mela was not used to interpret this result as normal/abnormal . MPV (test code = 7.5-12.5 Due to plat elet or 0246220) RBC variability in size or shapeth e result cannot b e reported accura tely. # Neutros (test code = 4284 See_Comment [Aut omated message] 20191222) The system [employer] generated this result transmit lisa reference range : 1,500 - 7,800 cells/uL. The reference range was not used to interpret this result as normal/abnormal . # Lymphs (test code = 1879 See_Comment [Auto mated message] 731-0) The system [employer] generated this result transmit lisa reference range : 850 - 3,900 cells/u L. The reference r mela was not used to interpret this result as normal/abnormal . # Monos (test code = 871 See_Comment [Autom ated message] ) The system [employer] generated this result transmit lisa reference range : 200 - 950 cells/uL. The reference range was not used to interpret this result as normal/abnormal . # Eos (test code = 108 See_Comment [Automat ed message] 711-2) The system [employer] generated this result transmit lisa reference range : 15 - 500 cells/uL. The reference range was not used to interpret this result as normal/abnormal . # Baso (test code = 58 See_Comment [Automa lisa message] 704-7) The system [employer] generated this result transmit lisa reference range : 0 - 200 cells/uL. T he reference range was not used to interpret this result as normal/abnormal . % Neutros (test code = 59.5 % ) % Lymphs (test code = 26.1 % 20191219) % Monos (test code = 12.1 % ) % Eos (test code = 1.5 % 3476465) % Baso (test code = 0.8 % 20191218) Lab Interpretation (test Abnormal code = 56860-2) [facility], % sat. (without ferritin)2022-01-08 09:52:00 Test Item Value Reference Range Interpretation Comments Iron (test code = 21 See_Comment L [Automate d message] 6129242) The system [employer] generated this result transmitted ref erence range: 50 - 180 mcg/dL. The ref erence range was not u sed to interpret this result as normal/abnor mal. Iron Bind.Cap.(TIBC) 309 See_Comment [Autom ated message] (test code = 6050200) The sy stem which generated this result transmitted ref erence range: 250 - 42 5 mcg/dL (calc). The reference range was not used to int erpret this result as normal/abnormal . Iron % Saturation (test 7 See_Comment L [Au tomated message] code = 4328602) The system [employer] [facility] generated this result transmitted ref erence range: 20 - 48 % (calc). The ref erence range was not u sed to interpret this result as normal/abnor mal. Lab Interpretation (test Abnormal code = 17040-9) [facility] [id number] 09:52:00 Test Item Value Reference Range Interpretation Comments Platelet Estimate (test code = DECREASED ADEQUATE A 21935-3) Lab Interpretation (test code = Abnormal 51667-5) [facility] 09:52:00 Test Item Value Reference Range Interpretation Comments Ferritin, Serum (test code = 2276-4) 16 ng/mL 24-380 L Lab Interpretation (test code = Abnormal 00280-5) [facility] + automated [id number] 09:52:00 Test Item Value Reference Range Interpretation Comments WBC (test code = 7.2 See_Comment [Automated message] ) The system [employer] generated this result transmit lisa reference range : 3.8 - 10.8 Thousand /uL. The reference r mela was not used to interpret this result as normal/abnormal . RBC (test code = 789-8) 4.03 See_Comment L [Au tomated message] The system [employer] generated this result transmit lisa reference range [...] L [Aut omated message] ) The system [employer] generated this result transmit lisa reference range : 140 - 400 Thousand/ uL. The reference r mela was not used to interpret this result as normal/abnormal . MPV (test code = 7.5-12.5 Due to plat elet or 1942513) RBC variability in size or shapeth e result cannot b e reported accura tely. # Neutros (test code = 4284 See_Comment [Aut omated message] 20191222) The system [employer] generated this result transmit lisa reference range : 1,500 - 7,800 cells/uL. The reference range was not used to interpret this result as normal/abnormal . # Lymphs (test code = 1879 See_Comment [Auto mated message] 731-0) The system [employer] generated this result transmit lisa reference range : 850 - 3,900 cells/u L. The reference r mela was not used to interpret this result as normal/abnormal . # Monos (test code = 871 See_Comment [Autom ated message] ) The system [employer] generated this result transmit lisa reference range : 200 - 950 cells/uL. The reference range was not used to interpret this result as normal/abnormal . # Eos (test code = 108 See_Comment [Automat ed message] 711-2) The system [employer] generated this result transmit lisa reference range : 15 - 500 cells/uL. The reference range was not used to interpret this result as normal/abnormal . # Baso (test code = 58 See_Comment [Automa lisa message] 334-7) The system [employer] generated this result transmit lisa reference range [...] 20191218) Lab Interpretation (test Abnormal code = 26924-0) [facility], % sat. (without ferritin)2022-01-08 09:52:00 Test Item Value Reference Range Interpretation Comments Iron (test code = 21 See_Comment L [Automate d message] ) The system [employer] generated this result transmitted ref erence range: 50 - 180 mcg/dL. The ref erence range was not u sed to interpret this result as normal/abnor mal. Iron Bind.Cap.(TIBC) 309 See_Comment [Autom ated message] (test code = 6677542) The sy stem which generated this result transmitted ref erence range: 250 - 42 5 mcg/dL (calc). The reference range was not used to int erpret this result as normal/abnormal . Iron % Saturation (test 7 See_Comment L [Au tomated message] code = 3047244) The system [employer] [facility] generated this result transmitted ref erence range: 20 - 48 % (calc). The ref erence range was not u sed to interpret this result as normal/abnor mal. Lab Interpretation (test Abnormal code = 23934-8) [facility]ATE[facility] [id number] 09:52:00 Test Item Value Reference Range Interpretation Comments Platelet Estimate (test code = DECREASED ADEQUATE A 79494-6) Lab Interpretation (test code = Abnormal 03350-1) [facility]ritin2022-[facility] 09:52:00 Test Item Value Reference Range Interpretation Comments Ferritin, Serum (test code = 2276-4) 16 ng/mL 24-380 L Lab Interpretation (test code = Abnormal 34562-5) [facility] with platelet count + automated [id number] 09:52:00 Test Item Value Reference Range Interpretation Comments WBC (test code = 7.2 See_Comment [Automated message] ) The system [employer] generated this result transmit lisa reference range : 3.8 - 10.8 Thousand /uL. The reference r mela was not used to interpret this result as normal/abnormal . RBC (test code = 789-8) 4.03 See_Comment L [Au tomated message] The system [employer] generated this result transmit lisa reference range [...] L [Aut omated message] ) The system [employer] generated this result transmit lisa reference range : 140 - 400 Thousand/ uL. The reference r mela was not used to interpret this result as normal/abnormal . MPV (test code = 7.5-12.5 Due to plat elet or 7511960) RBC variability in size or shapeth e result cannot b e reported accura tely. # Neutros (test code = 4284 See_Comment [Aut omated message] 20191222) The system [employer] generated this result transmit lisa reference range : 1,500 - 7,800 cells/uL. The reference range was not used to interpret this result as normal/abnormal . # Lymphs (test code = 1879 See_Comment [Auto mated message] 731-0) The system [employer] generated this result transmit lisa reference range : 850 - 3,900 cells/u L. The reference r mela was not used to interpret this result as normal/abnormal . # Monos (test code = 871 See_Comment [Autom ated message] ) The system [employer] generated this result transmit lisa reference range : 200 - 950 cells/uL. The reference range was not used to interpret this result as normal/abnormal . # Eos (test code = 108 See_Comment [Automat ed message] 711-2) The system [employer] generated this result transmit lisa reference range : 15 - 500 cells/uL. The reference range was not used to interpret this result as normal/abnormal . # Baso (test code = 58 See_Comment [Automa lisa message] 704-7) The system [employer] generated this result transmit lisa reference range [...] 20191218) Lab Interpretation (test Abnormal code = 87744-5) [facility], TIBC, % sat. (without ferritin)2022-01-08 09:52:00 Test Item Value Reference Range Interpretation Comments Iron (test code = 21 See_Comment L [Automate d message] ) The system [employer] generated this result transmitted ref erence range: [...] See_Comment L [Au tomated message] code = 2594308) The system [employer] [facility] generated this result transmitted ref erence range: 20 - 48 % (calc). The ref erence range was not u sed to interpret this result as normal/abnor mal. Lab Interpretation (test Abnormal code = 49372-1) [facility] [id number] 09:52:00 Test Item Value Reference Range Interpretation Comments Platelet Estimate (test code = DECREASED ADEQUATE A 08405-0) Lab Interpretation (test code = Abnormal 59487-2) [facility]in2022-08-13 09:52:00 Test Item Value Reference Range Interpretation Comments Ferritin, Serum (test code = 2276-4) 16 ng/mL 24-380 L Lab Interpretation (test code = Abnormal 29377-7) [facility] count + automated [id number] 09:52:00 Test Item Value Reference Range Interpretation Comments WBC (test code = 7.2 See_Comment [Automated message] ) The system [employer] generated this result transmit lisa reference range : 3.8 - 10.8 Thousand /uL. The reference r mela was not used to interpret this result as normal/abnormal . RBC (test code = 789-8) 4.03 See_Comment L [Au tomated message] The system [employer] generated this result transmit lisa reference range [...] L [Aut omated message] ) The system [employer] generated this result transmit lisa reference range : 140 - 400 Thousand/ uL. The reference r mela was not used to interpret this result as normal/abnormal . MPV (test code = 7.5-12.5 Due to plat elet or 7722366) RBC variability in size or shapeth e result cannot b e reported accura tely. # Neutros (test code = 4284 See_Comment [Aut omated message] 20191222) The system [employer] generated this result transmit lisa reference range : 1,500 - 7,800 cells/uL. The reference range was not used to interpret this result as normal/abnormal . # Lymphs (test code = 1879 See_Comment [Auto mated message] 731-0) The system [employer] generated this result transmit lisa reference range : 850 - 3,900 cells/u L. The reference r mela was not used to interpret this result as normal/abnormal . # Monos (test code = 871 See_Comment [Autom ated message] ) The system [employer] generated this result transmit lisa reference range : 200 - 950 cells/uL. The reference range was not used to interpret this result as normal/abnormal . # Eos (test code = 108 See_Comment [Automat ed message] 711-2) The system [employer] generated this result transmit lisa reference range : 15 - 500 cells/uL. The reference range was not used to interpret this result as normal/abnormal . # Baso (test code = 58 See_Comment [Automa lisa message] 704-7) The system [employer] generated this result transmit lisa reference range [...] 20191218) Lab Interpretation (test Abnormal code = 02014-3) [facility], TIBC, % sat. (without ferritin)2022-01-08 09:52:00 Test Item Value Reference Range Interpretation Comments Iron (test code = 21 See_Comment L [Automate d message] ) The system [employer] generated this result transmitted ref erence range: 50 - 180 mcg/dL. The ref erence range was not u sed to interpret this result as normal/abnor mal. Iron Bind.Cap.(TIBC) 309 See_Comment [Autom ated message] (test code = 6327483) The sy stem which generated this result transmitted ref erence range: 250 - 42 5 mcg/dL (calc). The reference range was not used to int erpret this result as normal/abnormal . Iron % Saturation (test 7 See_Comment L [Au tomated message] code = 2136124) The system [employer] [facility] generated this result transmitted ref erence range: 20 - 48 % (calc). The ref erence range was not u sed to interpret this result as normal/abnor mal. Lab Interpretation (test Abnormal code = 27729-7) [facility] [id number] 09:52:00 Test Item Value Reference Range Interpretation Comments Platelet Estimate (test code = DECREASED ADEQUATE A 71835-5) Lab Interpretation (test code = Abnormal 93011-7) [facility]MR, BRAIN, [id number] 15:47:00REFERRING MD: CHERELLE SALVADOR Unlisted Reason for Exam - Click Yes and Enter Reason Below- >Yes Unlisted Reason for Exam->1.3 cm midbrain/cisternal lesion [facility] : 1955 Sex: MFINAL REPORT MRI Brain with and without contrast CLINICAL HISTORY: Unlisted Reason for Exam1.3 cm midbrain/cisternal lesion Technique: MRI of the brain utilizing axial T1, T2, FLAIR, GRE, DWI, sagittal T1; and postgadolinium axial, sagittal, and coronal T1-weighted images. Comparisons: CThead 10/28/2018 Findings:Superior cistern T1 hyperintense 2.2 x 1.2 x 1.4 cm lesion without appreciable enhancement. No DWI hyperintensity. No evidence of acute infarct, midline shift or hydrocephalus. Mild generalized brain parenchymal volume loss. Nonspecific T2 FLAIR hyperintensities typical of chronic microangiopathic ischemic changes present. Orbits and globes are unremarkable. Left maxillary sinus mucus retention cyst present. Heterogeneous marrow signal can be seen in osteopenia. No destructiveosseous lesion. 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 Involutional and mild chronic microvascular ischemic changes. Signed : Efrain Navarrete MDReport Verified Date/Time: 01/04/2022 15:47:33 [facility] WITH [id number] 22:20:29 Test Item Value Reference Range Interpretation [...] RDW-SD (test code = 49.4 fL 38.5-51.6 56523-5) RDW-CV (test code = 20.9 % 12.1-15.4 H 788-0) PLT (test code = See_Comment L [Automated 777-3) message] The system which generated this result transmitted reference range : 150 - 328 10*3/?L. The reference range was not used to interpret this result as normal/abnormal . MPV (test code = Not Measure d 61244-5) NRBC/100 WBC (test See_Comment [Automat ed code = 6247663924) message] The system which generated this result transmitted reference range : 0.0 - 10.0 /100 WBCs. The reference range was not used to interpret this result as normal/abnormal . NRBC x10^3 (test code See_Comment [Auto mated = 4981765618) message] The system which generated this result transmitted reference range : 10*3/?L. The reference range was not used to interpret this result as normal/abnormal . GRAN MAT (NEUT) % 85.5 % (test code = 770-8) IMM GRAN % (test code 0.50 % = 9173456460) LYMPH % (test code = 7.6 % 736-9) MONO % (test code = 5.8 % 5905-5) EOS % (test code = 0.1 % 713-8) BASO % (test code = 0.5 % 706-2) GRAN MAT x10^3(ANC) 9.28 10*3/uL 1.99-6.95 H (test code = 1812392045) IMM GRAN x10^3 (test 0.05 10*3/uL 0-0.06 code = 2153465458) LYMPH x10^3 (test 0.82 10*3/uL 1.09-3.23 L code = 731-0) MONO x10^3 (test code 0.63 10*3/uL 0.36-1.02 = 742-7) EOS x10^3 (test code 0.06-0.53 L = 711-2) BASO x10^3 (test code 0.05 10*3/uL 0.01-0.09 = 704-7) PLT ESTIMATE (test Decreased Normal A code = 9317-9) MADALYN (test code = MADALYN) No Platelet clumps seen Lab Interpretation Abnormal (test code = 53542-3) [facility] METABOLIC PANEL (NA, K, CL, CO2, GLUCOSE, BUN, CREATININE, CA)2021-12-26 21:51:09 Test Item Value Reference Range Interpretation Comments NA (test code = 134 mmol/L 135-145 L 3014527570) K (test code = 3.7 mmol/L 3.5-5 9437503061) CL (test code = 105 mmol/L 98-108 2063948343) CO2 TOTAL (test code = 21 mmol/L 23-31 L 9319677856) AGAP (test code = 2-16 9251916816) BUN (test code = 5 mg/dL 7-23 L 0814517004) GLUCOSE (test code = 257 mg/dL 70-110 H 7161523994) CREATININE (test code = 0.61 mg/dL 0.6-1.25 9840538717) CALCIUM (test code = 7.9 mg/dL 8.6-10.6 L 1243597309) eGFR (test code = mL/min/1.73m2 8520385190) MADALYN (test code = MADALYN) Association of [...] tests). Lab Interpretation Abnormal (test code = 98989-7) [facility] METABOLIC [id number] 13:28:32 Test Item Value Reference Range Interpretation [...] eGF R is based on the CKD-EPI 1 equation that d oes not use a race coefficientEsti mated GFR is not as accur ate as Creatinine Bonita fara in predicting glom erular filtration rate . Estimated GFR is not appl icable for dialysis patien ts Software Quality Tester ID - BSSpecimen slightly ictericHEPATIC FUNCTION [id number] 13:28:32 Test Item Value Reference Range Interpretation [...] (test code = 21 U/L 6-55 347) Software Quality Tester ID - BSSpecimen slightly ictericPROTHROMBIN [id number] 13:21:12 Test Item Value Reference Range Interpretation Comments PROTIME (BEAKER) 17.5 seconds 11.9-14.2 H (test code = 759) INR (BEAKER) (test 1.46 See_Comment [Automat ed message] code = 370) The system [employer] generated this result transmitted ref erence range: <=5.90. The reference range was not used to int erpret this result as normal/abnormal . RECOMMENDED COUMADIN/WARFARIN INR THERAPY RANGESSTANDARD DOSE: 2.0 - 3.0 Includes: PROPHYLAXIS for venous thrombosis, systemic embolization; TREATMENT for venous thrombosis and/or pulmonary embolus.HIGH RISK: Target INR is 2.5-3.5 for patients with mechanical heart valves.CBC W/PLT COUNT & AUTO [id number] 13:14:24 Test Item Value Reference Range Interpretation [...] (BEAKER) (test code = 2801) MR, ABDOMEN, [id number] 18:24:00REFERRING MD: CHERELLE SALVADOR Include Abdominal VesselsM[facility]Name: [facility] : 1955 Sex: [...] including splenomegaly and large esophageal varices. Signed: Isaías Alvarez [facility] Verified Date/Time: 12/08/2021 18:24:59 CT, CHEST, WITHOUT [id number] 12:41:00REFERRING MD: CHERELLE SALVADOR Mets work up [facility] : 1955 Sex: MFINAL REPORT [...] (test 2.3 ng/mL <10.0 code = 1094) Software Quality Tester ID - DBBASIC METABOLIC [id number] 16:53:56 Test Item Value Reference Range Interpretation [...] S NOT APPLICABLE FOR DIALYSIS PATIEN TS. Software Quality Tester ID - BSSpecimen slightly ictericHEPATIC FUNCTION [id number] 16:53:56 Test Item Value Reference Range Interpretation [...] (test code = 22 U/L 6-55 347) Software Quality Tester ID - BSSpecimen slightly ictericPROTHROMBIN TIME/[id number] 16:43:33 Test Item Value Reference Range Interpretation Comments PROTIME (BEAKER) 17.0 seconds 11.9-14.2 H (test code = 759) INR (BEAKER) (test 1.40 See_Comment [Automat ed message] code = 370) The system [employer] generated this result transmitted ref erence range: <=5.90. The reference range was not used to int erpret this result as normal/abnormal . RECOMMENDED COUMADIN/WARFARIN INR THERAPY RANGESSTANDARD DOSE: 2.0 - 3.0 Includes: PROPHYLAXIS for venous thrombosis, systemic embolization; TREATMENT for venous thrombosis and/or pulmonary embolus.HIGH RISK: Target INR is 2.5-3.5 for patients with mechanical heart valves.CBC W/PLT COUNT & AUTO [id number] 16:42:35 Test Item Value Reference Range Interpretation [...] = 2801) MR, MRI, METASTATIC SURVEY/BONE MARROW [id number] 13:54:00REFERRING : CHERELLE SALVADOR Mets work up Reason for Exam:->hcc, cirrhosis [facility] C[facility] : 1955 Sex: MFINAL REPORT [...] CT or MRI for further evaluation. Signed: Radha Royal Verified Date/Time: 12/06/2021 13:54:32 Reading Location: [address] Consult Reading Room HEREDITARY [id number] 10:46:31 Test Item Value Reference Interpretation Comments Range DNA Mutation See Below RESULT: NEGATIV E Analysis Interpretation: DNA testing (test code = indicates that this individual 0287765) isnegative for the C282Y and H63D pathogenic [...] hogenic variants in the HFEgene, C282Y (NM 473349.2: c .845G>A, p.Esr500Amz) an d H63D (RQ161987.2: c. 187C>G, p.Tcu82Ojc), th at are commonly associated with HH. [...] ca re providers, please contact your local [employer] 'genetic counselor or [facility] [phone] ( ) forassistance with the interp retation of these results. This test was developed and i ts analytical performancechar acteristics have been deter mined by [facility]. It has not been cleare d or approved byA. This ass ay has been validated pursu ant to the CLIA regulationsand is used for clinical purpos es. For more information, pl ease refer tohttp://educat [email or web address].com/faq/h emochromatosis. (This linkis be ing provided for information al/educational purposes only.) Reviewed and signed by Liane Phillips MD, MHA , FACMG, CGMBS, Signed on 09/09 at 10:42 MADALYN (test Performing Lab code = MADALYN) [facility] [address] [place] [address] Aung Salazar MD, PhD, SANDRA [facility] HospitalHEREDITARY [id number] 10:46:31 Test Item Value Reference Interpretation Comments Range DNA Mutation See Below RESULT: NEGATIV E Analysis Interpretation: DNA testing (test code = indicates that this individual 4887568) isnegative for the C282Y and H63D pathogenic [...] hogenic variants in the HFEgene, C282Y (NM 080304.2: c .845G>A, p.Gjv794Ihp) an d H63D (RB142102.2: c. 187C>G, p.Sqf29Oim), th at are commonly associated with HH. [...] your local [employer] 'genetic counselor or [facility] [place] [phone] ( ) forassistance with the interp retation of these results. This test was developed and i ts analytical performancechar acteristics have been deter mined by [facility]. It has not been cleare d or approved byA. This ass ay has been validated pursu ant to the CLIA regulationsand is used for clinical purpos es. For more information, pl ease refer tohttp://educat ion.[employer].com/faq/h emochromatosis. (This linkis be ing provided for information al/educational purposes only.) Reviewed and signed by Liane Phillips MD, MHA , FACMG, CGMBS, Signed on 09/09 at 10:42 MADALYN (test Performing Lab code = MADALYN) EZ [facility] [address] [place] [address] Aung Salazar MD, PhD, SANDRA [facility] HospitalHEREDITARY [id number] 10:46:31 Test Item Value Reference Interpretation Comments Range DNA Mutation See Below RESULT: NEGATIV E Analysis Interpretation: DNA testing (test code = indicates that this individual 4641233) isnegative for the C282Y and H63D pathogenic [...] rev iewed byLam Phillips MD, A, FAC, [facility]. DETAILED ASSAY INFORMATION: He reditary hemochromatosis [...] hogenic variants in the HFEgene, C282Y (NM 679365.2: c .845G>A, p.Rio877Wjr) an d H63D (AL997387.2: c. 187C>G, p.Irb49Csa), th at are commonly associated with HH. [...] ca re providers, please contact your local [employer] 'genetic counselor or [facility] [phone] ( ) forassistance with the interp retation of these results. This test was developed and i ts analytical performancechar acteristics have been deter mined by [facility]. It has not been cleare d or approved byA. This ass ay has been validated pursu ant to the CLIA regulationsand is used for clinical purpos es. For more information, pl ease refer tohttp://educat ion.Dynamightys.com/faq/h emochromatosis. (This linkis be ing provided for information al/educational purposes only.) Reviewed and signed by Liane Phillips MD, MHA , FACMG, CGMBS, Signed on 09/09 at 10:42 MADALYN (test Performing Lab code = MADALYN) [facility] [address] [place] [address] Aung Salazar MD, PhD, SANDRA [facility] HospitalHEREDITARY [id number] 10:46:31 Test Item Value Reference Interpretation Comments Range DNA Mutation See Below RESULT: NEGATIV E Analysis Interpretation: DNA testing (test code = indicates that this individual 8322559) isnegative for the C282Y and H63D pathogenic [...] hogenic variants in the HFEgene, C282Y (NM 864349.2: c .845G>A, p.Mbf505Aim) an d H63D (SR400635.2: c. 187C>G, p.Kxb15Mwf), th at are commonly associated with HH. [...] [facility] 'genetic counselor or marlene myers [phone] ( ) forassistance with the interp retation of these results. This test was developed and i ts analytical performancechar acteristics have been deter mined by [facility]. It has not been cleare d or approved byA. This ass ay has been validated pursu ant to the CLIA regulationsand is used for clinical purpos es. For more information, pl ease refer tohttp://educat ion.JackBe.com/faq/h emochromatosis. (This linkis be ing provided for information al/educational purposes only.) Reviewed and signed by Liane Phillips MD, MHA , FAC, CGMBS, Signed on 09/09 at 10:42 MADALYN (test Performing Lab code = MADALYN) EZ [facility] [address] [place] [address] Aung Salazar MD, PhD, SANDRA [facility] HospitalHEREDITARY [id number] 10:46:31 Test Item Value Reference Interpretation Comments Range DNA Mutation See Below RESULT: NEGATIV E Analysis Interpretation: DNA testing (test code = indicates that this individual 7430050) isnegative for the C282Y and H63D pathogenic [...] hogenic variants in the HFEgene, C282Y (NM 895205.2: c .845G>A, p.Uca636Rgs) an d H63D (KL553619.2: c. 187C>G, p.Cly80Qum), th at are commonly associated with HH. [...] relevant history,and oth er laboratory data. Health tx re providers, please contact your local [employer] 'genetic counselor or [facility] [phone] ( ) forassistance with the interp retation of these results. This test was developed and i ts analytical performancechar acteristics have been deter mined by [facility]. It has not been cleare d or approved [facility]. This ass ay has been validated pursu ant to the CLIA regulationsand is used for clinical purpos es. For more information, pl ease refer tohttp://educat ion.Dynamightys.com/faq/h emochromatosis. (This linkis be ing provided for information al/educational purposes only.) Reviewed and signed by Liane Phillips MD, MHA , FACMG, CGMBS, Signed on 09/09 at 10:42 MADALYN (test Performing Lab code = MADALYN) [facility] [address] [place] [address] Aung Salazar MD, PhD, SANDRA [facility] HospitalHEREDITARY [id number] 10:46:31 Test Item Value Reference Interpretation Comments Range DNA Mutation See Below RESULT: NEGATIV E Analysis Interpretation: DNA testing (test code = indicates that this individual 0277300) isnegative for the C282Y and H63D pathogenic [...] hogenic variants in the HFEgene, C282Y (NM 724308.2: c .845G>A, p.Kyc111Chl) an d H63D (ZC595125.2: c. 187C>G, p.Uxe54Wje), th at are commonly associated with HH. [...] your local [facility] 'genetic counselor or [facility] [phone] ( ) forassistance with the interp retation of these results. This test was developed and i ts analytical performancechar acteristics have been deter mined by [facility]. It has not been cleare d or approved [facility]. This ass ay has been validated pursu ant to the CLIA regulationsand is used for clinical purpos es. For more information, pl ease refer tohttp://educat ion.[employer].com/faq/h emochromatosis. (This linkis be ing provided for information al/educational purposes only.) Reviewed and signed by Liane Phillips MD, MHA , FACMG, CGMBS, Signed on 09/09 at 10:42 MADALYN (test Performing Lab code = MADALYN) [facility] [address] [place] [address] Aung Salazar MD, PhD, SANDRA [facility] HospitalMR, ABDOMEN, [id number] 14:51:00REFERRING : CHERELLE SALVADOR Include Abdominal Vessels [facility] CARD[facility] : 1955 Sex: MFINAL REPORT [...] umbilical hernia, slightly increased in size Signed: Roman Mckeon Verified Date/Time: 09/01/2021 14:51:17 CT, CHEST, WITHOUT [id number] 16:16:00REFERRING MD: CHERELLE SALVADOR Mets work up [facility] CARD[facility] : 1955 Sex: MFINAL REPORT [...] Normal caliber of main pulmonary trunk. Patent cent ral airways. No pleural effusion or pneumothorax. Stable 8 mm groundglass attenuation nodule within the right lower lobe. This is best seen on axial image 37. The lungs are otherwise clear. Gynecomastia is noted. Small hiatal hernia is noted. Within the partially imaged upper abdomen, cirrhotic liver and mild splenomegaly are noted. No aggressive osseous lesion. Impression: 1. No definite metastatic disease in the chest.2. Stable nonspecific 8 mm right lower lobe groundglass nodule. Signed: Ankit Gaines MDReport Verified Date/Time: 08/31/2021 16:16:00 Reading Location: [facility] Electronicallysigned by: ANKIT GAINES MD on 08/31/2021 04:16 PMALPHA FETOPROTEIN (AFP), TUMOR MARKER 2021-08-26 11:47:11 Test Item Value Reference Range Interpretation Comments ALPHA-FETOPROTEIN (BEAKER) (test code < ng/mL <10.0 = 1094) Software Quality Tester ID - BSBASIC METABOLIC [id number] 11:20:03 Test Item Value Reference Range Interpretation [...] S NOT APPLICABLE FOR DIALYSIS PATIEN TS. Software Quality Tester ID - PIAYA LSpecimen slightly ictericHEPATIC FUNCTION [id number] 11:20:03 Test Item Value Reference Range Interpretation [...] (test code = 26 U/L 6-55 347) Software Quality Tester ID - KRISHNA Isaac slightly ictericPROTHROMBIN TIME/[id number] 10:58:57 Test Item Value Reference Range Interpretation Comments PROTIME (BEAKER) 17.2 seconds 11.9-14.2 H (test code = 759) INR (BEAKER) (test 1.42 See_Comment [Automat ed message] code = 370) The system 9flats generated this result transmitted ref erence range: <=5.90. The reference range was not used to int erpret this result as normal/abnormal . RECOMMENDED COUMADIN/WARFARIN INR THERAPY RANGESSTANDARD DOSE: 2.0 - 3.0 Includes: PROPHYLAXIS for venous thrombosis, systemic embolization; TREATMENT for venous thrombosis and/or pulmonary embolus.HIGH RISK: Target INR is 2.5-3.5 for patients with mechanical heart valves.CBC W/PLT COUNT & AUTO [id number] 10:56:22 Test Item Value Reference Range Interpretation [...] (BEAKER) (test code = 2801) Comprehensive metabolic [id number] 16:54:00 Test Item Value Reference Range Interpretation [...] See_Comment [Automate d message] (test code = 2459229) The sy stem which generated this result [...] mal. Sodium (test code = 137 mmol/L 135-750 2175782) Potassium, Serum 3.8 mmol/L 3.5-5.3 (test code = 20101014) Chloride (test code = 107 mmol/L 98-265 3491767) Carbon Dioxide, Total 22 mmol/L 20-32 (test code = ) Calcium, Serum (test 8.1 mg/dL 8.6-10.3 L code = 3496134) Protein, Total, Serum 6.0 g/dL 6.1-8.1 L (test code = 20101003) Albumin (test code = 3.0 g/dL 3.6-5.1 L ) GLOBULIN (QUEST) 3.0 See_Comment [Automated message] (test code = 3982259) The sy stem which generated this result [...] 1.4 mg/dL 0.2-1.2 H (test code = 9799783) Alkaline Phosphatase, 103 U/L 35-144 S (test code = 6768-6) AST (SGOT) (test code 24 U/L 10-35 = 20101009) ALT (SGPT) (test code 15 U/L 9-46 = ) Lab Interpretation Abnormal (test code = 19466-5) [facility] [id number] 16:54:00 Test Item Value Reference Range Interpretation Comments Glucose (test code = 157 mg/dL 65-99 H Fasti ng reference 7168089) interval For so mecarmen without known diabetes, a glucosevalue >1 25 [...] mal. Sodium (test code = 137 mmol/L 135-031 4865825) Potassium, Serum 3.8 mmol/L 3.5-5.3 (test code = 20101014) Chloride (test code = 107 mmol/L 98-362 3302667) Carbon Dioxide, Total 22 mmol/L 20-32 (test code = ) Calcium, Serum (test 8.1 mg/dL 8.6-10.3 L code = 9362125) Protein, Total, Serum 6.0 g/dL 6.1-8.1 L (test code = 20101003) Albumin (test code = 3.0 g/dL 3.6-5.1 L ) GLOBULIN (QUEST) 3.0 See_Comment [Automated message] (test code = 4607030) The sy stem which generated this result [...] ) Lab Interpretation Abnormal (test code = 13930-4) [facility] [id number] 16:54:00 Test Item Value Reference Range Interpretation Comments Glucose (test code = 157 mg/dL 65-99 H Fastin g reference 7087636) interval For so meone without known diabetes, [...] See_Comment [Autom ated message] (test code = 0455953) The sy stem which generated this result transmitted ref erence range: > OR = 6 0 mL/min/1.73m2. The reference range was not used to int erpret this result as normal/abnormal . eGFR If Africn Am 121 See_Comment [Automate d message] (test code = 8394642) The sy stem which generated this result [...] mal. Sodium (test code = 137 mmol/L 135-591 2746771) Potassium, Serum 3.8 mmol/L 3.5-5.3 (test code = 20101014) Chloride (test code = 107 mmol/L 98-756 1512533) Carbon Dioxide, Total 22 mmol/L 20-32 (test code = ) Calcium, Serum (test 8.1 mg/dL 8.6-10.3 L code = 20100926) Protein, Total, Serum 6.0 g/dL 6.1-8.1 L (test code = 20101003) Albumin (test code = 3.0 g/dL 3.6-5.1 L ) GLOBULIN (QUEST) 3.0 See_Comment [Automated message] (test code = 1063179) The sy stem which generated this result [...] ) Lab Interpretation Abnormal (test code = 60412-6) [facility] [id number] 16:54:00 Test Item Value Reference Range Interpretation Comments Glucose (test code = 157 mg/dL 65-99 H Fastin g reference 7008173) interval For so karla without known diabetes, [...] mal. Sodium (test code = 137 mmol/L 135-539 5445118) Potassium, Serum 3.8 mmol/L 3.5-5.3 (test code = 20101014) Chloride (test code = 107 mmol/L 98-614 1771630) Carbon Dioxide, Total 22 mmol/L 20-32 (test code = ) Calcium, Serum (test 8.1 mg/dL 8.6-10.3 L code = 20100926) Protein, Total, Serum 6.0 g/dL 6.1-8.1 L (test code = 20101003) Albumin (test code = 3.0 g/dL 3.6-5.1 L ) GLOBULIN (QUEST) 3.0 See_Comment [Automated message] (test code = 8476367) The sy stem which generated this result [...] ) Lab Interpretation Abnormal (test code = 08921-4) [facility] [id number] 16:54:00 Test Item Value Reference Range Interpretation Comments Glucose (test code = 157 mg/dL 65-99 H Fastin g reference 1387098) interval For so meone without known diabetes, [...] See_Comment [Autom ated message] (test code = 8386654) The sy stem which generated this result transmitted ref erence range: > OR = 6 0 mL/min/1.73m2. The reference range was not used to int erpret this result as normal/abnormal . eGFR If Africn Am 121 See_Comment [Automate d message] (test code = 4621258) The sy stem which generated this result [...] mal. Sodium (test code = 137 mmol/L 135-764 1059006) Potassium, Serum 3.8 mmol/L 3.5-5.3 (test code = 20101014) Chloride (test code = 107 mmol/L 98-534 6780163) Carbon Dioxide, Total 22 mmol/L 20-32 (test code = ) Calcium, Serum (test 8.1 mg/dL 8.6-10.3 L code = 20100926) Protein, Total, Serum 6.0 g/dL 6.1-8.1 L (test code = 20101003) Albumin (test code = 3.0 g/dL 3.6-5.1 L ) GLOBULIN (QUEST) 3.0 See_Comment [Automated message] (test code = 3285127) The sy stem which generated this result [...] ) Lab Interpretation Abnormal (test code = 21988-8) [facility], [facility]BDOMEN, [id number] 14:52:00REFERRING MD: CHERELLE LIANG Include Abdominal Vessels [facility] CARDONA : 1955 Sex: MFINAL REPORT [...] series 12) measures 1.2 cm with minimal peripheralnodular enhancement (image 31, series 11) and no [...] and 30 on the arterial phase) and someare old (LR-3). Other focal observations (LI-RADS 2 or 1): - Stable 1 cm cyst in hepatic segment V (image 17, series 8). Portal vein: Portal vein is patent and measures 1.2 cm in diameter. Arterial anatomy: Right hepatic artery arises from the celiac trunk. The left hepatic artery arises from the leftgastric artery which arises directly off of the [...] peripheral nodular enhancement and no washout (LR-TR equivocal). 2.Smaller previously visualized segment VIII treatment cavity without residual or recurrent disease (LR-TR nonviable).3.Multiple scattered subcentimeter LR-3 observations, some of which are old and some are new as above. Attention on follow-up exams.4.Cirrhosis and portal hypertension with stable large paraesophageal. Patent main portal vein. Signed: Roman Mckeon Verified Date/Time: 114:52:21 Reading Location: [address] Reading Room CT, CHEST, WITHOUT [id number] 16:45:00REFERRING : CHERELLE SALVADOR Mets work upCHI [facility]: [facility]AL[facility]ARDONA : 1955 Sex: MFINAL REPORT [...] MDReport Verified Date/Time: 04/29/2021 16:45:28 Reading Location: [facility] B1 C013Y CT Body Reading Room BONE AND/OR JOINT IMAGING, WHOLE [id number] 14:33:00REFJENISE GOMEZ: CHERELLE SALVADOR METS WORK [facility] : 1955 Sex: MFINAL REPORT PROCEDURE: BONE SCAN, WHOLE BODY CPT CODE: 81129 INDICATION: HCC PROTOCOL: 21.8 mCi of Tc-99m [...] Tami Owen Verified Date/Time: 04/29/2021 14:33:51 Reading Location:[address] [place] [address] Reading Room Basic Metabolic [id number] 12:07:01 Test Item Value Reference Range Interpretation Comments Sodium (test code = 134 meq/L 136-145 L 2951-2) Potassium (test code 4.5 meq/L 3.5-5.1 = 2823-3) Chloride (test code = 100 meq/L 98-107 5-0) CO2 (test code = 22 meq/L 22-29 2027-9) BUN (test code = 11 mg/dL 7-21 3094-0) Creatinine (test code 0.82 mg/dL 0.57-1.25 = 2160-0) Glucose (test code = 124 mg/dL 70-105 H 2345-7) Calcium (test code = 8.9 mg/dL 8.4-10.2 36253-0) EGFR (test code = 95 mL/min/1.73 [place] [address]-1) NOT ACCURATE CREATININE CLEARANCE IN PREDICTING GLOMERULAR FILTRATION RATE . ESTIMATED GFR I S NOT APPLICABLE FOR DIALYSIS PATIENTS. MADALYN (test code = MADALYN) Software Quality Tester ID - ELOY MSpecimen slightly icteric Lab Interpretation Abnormal (test code = 54760-2) [facility] HospitalHepatic function [id number] 12:07:01 Test Item Value Reference Range Interpretation Comments Protein, Total (test 7.3 See_Comment [Autom ated code = 2885-2) message] The system which generated this result transmitted reference range : 6.0 - 8.3 gm/dL . The reference range was not used to interpr et this result as normal/abnormal . Albumin (test code = 3.3 g/dL 3.5-5.0 L 83329-7) Total Bilirubin (test 1.8 mg/dL 0.2-1.2 H code = 1974-2) Bilirubin, Direct 0.8 mg/dL 0.1-0.5 H (test code = 1968-7) Alkaline Phosphatase 148 U/L 40-150 (test code = 6768-6) AST (test code = 31 U/L 5-34 1920-8) ALT (test code = 23 U/L 6-55 1742-6) MADALYN (test code = MADALYN) Software Quality Tester ID - ELOY MSpecimen slightly icteric Lab Interpretation Abnormal (test code = 47044-4) [facility] HospitalBASIC METABOLIC [id number] 12:07:01 Test Item Value Reference Range Interpretation [...] S NOT APPLICABLE FOR DIALYSIS PATIEN TS. Software Quality Tester LEOPOLDO LYONS MSpecimen slightly ictericHEPATIC FUNCTION [id number] 12:07:01 Test Item Value Reference Range Interpretation [...] (test code = 23 U/L 6-55 347) Software Quality Tester LEOPOLDO Collierimekaz slightly ictericAlpha fetoprotein (AFP), tumor [id number] 11:59:44 Test Item Value Reference Range Interpretation Comments Alpha-Fetoprotein (test 2.5 ng/mL <10.0 code = 1834-1) MADALYN (test code = MADALYN) Software Quality Tester LEOPOLDO LYONS M Lab Interpretation (test Normal code = 06515-5) [facility] HospitalALPHA FETOPROTEIN (AFP), TUMOR [id number] 11:59:44 Test Item Value Reference Range Interpretation Comments ALPHA-FETOPROTEIN (BEAKER) (test 2.5 ng/mL <10.0 code = 1094) Software Quality Tester LEOPOLDO LYONS MProthrombin time/[id number] 11:32:54 Test Item Value Reference Interpretation Comments [...] valves. Lab Interpretation Abnormal (test code = 05176-1) [facility] HospitalPROTHROMBIN TIME/[id number] 11:32:54 Test Item Value Reference Range Interpretation Comments PROTIME (BEAKER) 15.7 seconds 11.9-14.2 H (test code = 759) INR (BEAKER) (test 1.27 See_Comment [Automat ed message] code = 370) The system 9flats generated this result transmitted ref erence range: <=5.90. The reference range was not used to int erpret this result as normal/abnormal . RECOMMENDED COUMADIN/WARFARIN INR THERAPY RANGESSTANDARD DOSE: 2.0 - 3.0 Includes: PROPHYLAXIS for venous thrombosis, systemic embolization; TREATMENT for venous thrombosis and/or pulmonary embolus.HIGH RISK: Target INR is 2.5-3.5 for patients with mechanical heart valves.CBC with platelet count + automated [id number] 11:25:26 Test Item Value Reference Range Interpretation Comments WBC (test code = 6690-2) 6.3 See_Comment [A utomated message] The system 9flats generated this result transmitted ref erence range: 3.5 - 10 .5 K/L. The refe rence range was not u sed to interpret this result as normal/abnor mal. RBC (test code = 789-8) 4.40 See_Comment L [Au tomated message] The system 9flats generated this result transmitted ref erence range: 4.63 - 6 .08 M/L. The refe rence range was not u sed to interpret this result as normal/abnor mal. MCHC (test code = 786-4) 29.8 See_Comment L [A utomated message] The system 9flats generated this result transmitted ref erence range: [...] L [Aut omated message] 777-3) The system 9flats generated this result transmitted ref erence range: 150 - 45 0 K/CU MM. The referen ce range was not u sed to interpret this result as normal/abnor mal. MPV (test code = [place] 75248-1) to abnormal Pollo telet population distribution. nRBC (test code = 413) 0 See_Comment [Aut omated message] The system 9flats generated this result transmitted ref erence range: [...] See_Comment [Aut omated message] 670) The system 9flats generated this result transmitted ref erence range: 1.78 - 5 .38 K/L. The refe rence range was not u sed to interpret this result as normal/abnor mal. # Lymphs (test code = 1.92 See_Comment [Auto mated message] 414) The system 9flats generated this result transmitted ref erence range: 1.32 - 3 .57 K/L. The refe rence range was not u sed to interpret this result as normal/abnor mal. # Monos (test code = 0.60 See_Comment [Autom ated message] 415) The system 9flats generated this result transmitted ref erence range: 0.30 - 0 .82 K/L. The refe rence range was not u sed to interpret this result as normal/abnor mal. # Eos (test code = 416) 0.11 See_Comment [Au tomated message] The system 9flats generated this result transmitted ref erence range: 0.04 - 0 .54 K/L. The refe rence range was not u sed to interpret this result as normal/abnor mal. # Baso (test code = 417) 0.05 See_Comment [A utomated message] The system 9flats generated this result transmitted ref erence range: 0.01 - 0 .08 K/L. The refe rence range was not u sed to interpret this result as normal/abnor mal. Immature 0 % 0-1 Granulocytes-Relative (test code = 2801) Lab Interpretation (test Abnormal code = 49055-5) [facility] W/PLT COUNT & AUTO [id number] 11:25:26 Test Item Value Reference Range Interpretation [...] PERCENT (BEAKER) (test code = 2801) TROPONIN [id number] 19:45:34 Test Item Value Reference Interpretation Comments Range TROPONIN I (test 0.004 ng/mL See_Comment [Automated code = 9112236018) message] The system which generated this result [...] biotin. Lab Interpretation Normal (test code = 72665-1) [facility] WITH [id number] 19:42:16 Test Item Value Reference Range Interpretation [...] (test code = 55.0 fL 38.5-51.6 H 06171-8) RDW-CV (test code = 21.7 % 12.1-15.4 H 788-0) PLT (test code = See_Comment L [Automated 777-3) message] The sy stem which generated this result transmitted reference range : 150 - 328 10*3/ ?L. The reference r mela was not used to interpret this result as normal/abnormal . MPV (test code = Not Measure d 22418-6) IPF % (test code = 3.2 % 1.2-10.7 Platelet count 7273482295) measured by fluorescence method. NRBC/100 WBC (test See_Comment [Automat ed code = 0918872204) message] The system which generated this result transmitted reference range : 0.0 - 10.0 /100 WBCs. The refer ence range was not u sed to interpret th is result as normal/abnormal . NRBC x10^3 (test code <0.01 See_Comment [Auto mated = 6922000618) message] The s [employer] which generated this result transmitted reference range : 10*3/?L. The reference range was not used to interpret this result as normal/abnormal . GRAN MAT (NEUT) % 42.9 % (test code = 770-8) IMM GRAN % (test code 0.60 % = 5948066793) LYMPH % (test code = 38.0 % 736-9) MONO % (test code = 14.2 % 5905-5) EOS % (test code = 3.3 % 713-8) BASO % (test code = 1.0 % 706-2) GRAN MAT x10^3(ANC) 2.24 10*3/uL 1.99-6.95 (test code = 5031800373) IMM GRAN x10^3 (test 0.03 10*3/uL 0.00-0.06 code = 7650657429) LYMPH x10^3 (test code 1.98 10*3/uL 1.09-3.23 = 731-0) MONO x10^3 (test code 0.74 10*3/uL 0.36-1.02 = 742-7) EOS x10^3 (test code = 0.17 10*3/uL 0.06-0.53 711-2) BASO x10^3 (test code 0.05 10*3/uL 0.01-0.09 = 704-7) Lab Interpretation Abnormal (test code = 43607-6) [facility]OL[facility] PAN[facility] (88991)2021-04-01 19:34:12 Test Item Value Reference Range Interpretation Comments NA (test code = 135 mmol/L 135-145 6234271098) K (test code = 3.8 mmol/L 3.5-5.0 1799633212) CL (test code = 104 mmol/L 98-108 0340522342) CO2 TOTAL (test code = 23 mmol/L 23-31 2204274017) AGAP (test code = 2-16 6606205127) BUN (test code = 9 mg/dL 7-23 5420558875) GLUCOSE (test code = 195 mg/dL 70-110 H 4164851055) CREATININE (test code = 0.65 mg/dL 0.60-1.25 8984536888) TOTAL BILI (test code = 1.3 mg/dL 0.1-1.1 H 4248552838) CALCIUM (test code = 8.2 mg/dL 8.6-10.6 L 8374499338) T PROTEIN (test code = 6.6 g/dL 6.3-8.2 0493646938) ALBUMIN (test code = 2.9 g/dL 3.5-5.0 L 1575130078) ALK PHOS (test code = 143 U/L 34-122 H 6211744751) ALTv (test code = 28 U/L 5-50 1742-6) AST(SGOT) (test code = 47 U/L 13-40 H 4740501286) eGFR (test code = mL/min/1.73m2 2782417103) MADALYN (test code = MADALYN) Association of [...] tests). Lab Interpretation Abnormal (test code = 49448-7) [facility] HospitalAMMONIA, [id number] 19:32:52 Test Item Value Reference Range Interpretation Comments AMMONIA (test code = 1313486745) 48 umol/L 9-33 H Lab Interpretation (test code = Abnormal 34544-4) [facility] HospitalPROTHROMBIN TIME / [id number] 19:01:25 Test Item Value Reference Range Interpretation Comments PROTIME PATIENT (test See_Comment H [Auto mated message] code = 5964-2) The system As Seen on TV generated this result transmitted ref erence range: 12.0 - 1 4.7 Seconds. The reference range was not used to int erpret this result as normal/abnormal . INR (test code = 6301-6) Nor mal INR <1.1; Warfarin Therap eutic range 2.0 to 3. 0 or 2.5 to 3.5, dep ending upon the indica tions. Lab Interpretation (test Abnormal code = 21654-7) [facility] HospitalANG, EMBOLIZATION, EXTENSIVE - ARTERIAL 2021-03-12 14:48:00REFERRING MD: CHERELLE SALVADOR For TACEReason for Exam:- >hcc, hcvMENDOC[facility]Name: [facility] : 1955 Sex: [...] blood loss: < 5 cc. Specimen: None. cut off machine operator: Carolyn. Automotive Shop Foreman: Dilip. Fluoroscopy Time: 14.1 min. Dose (Ka,r): [...] accessed using a micropuncture set. A 5 Afghan sheath was placed. Diagnostic mesenteric angiogram was performedto access vessel patency and exclude arterio-portal shunting. A 5 Afghan Glaser catheter which was used to select the celiac trunk for a DSA run. A 3 Afghan microcatheter was advanced coaxially through the Glaser catheter for selection of the distal right hepatic artery for DSA run, which demonstrates that the residual right hepatic lesion is amenable for treatment. 25 mg of doxorubicin loaded on LC beads was administered. Followup DSA injection was performed. The microcatheter was removed. The Glaser catheter was withdrawn into the abdominal aorta [...] sedation.2. Successful hemostasis using closure device. Signed: Marion Jaimeeport Verified Date/Time: 03/12/2021 14:48:55 Reading Location: [place] [address] Angio Body Reading Room HEPATIC FUNCTION PANEL [...] (test code = 19 U/L 6-55 347) Software Quality Tester ID - EMERSONSpecimen slightly ictericBASIC METABOLIC [id number] 07:40:33 Test Item Value Reference Range Interpretation [...] S NOT APPLICABLE FOR DIALYSIS PATIEN TS. Software Quality Tester ID - EMERSONSpecimen slightly ictericPROTHROMBIN TIME/[id number] 07:22:36 Test Item Value Reference Range Interpretation Comments PROTIME (BEAKER) 16.9 seconds 11.9-14.2 H (test code = 759) INR (BEAKER) (test 1.40 See_Comment [Automat ed message] code = 370) The system 9flats generated this result transmitted ref erence range: <=5.90. The reference range was not used to int erpret this result as normal/abnormal . RECOMMENDED COUMADIN/WARFARIN INR THERAPY RANGESSTANDARD DOSE: 2.0 - 3.0 Includes: PROPHYLAXIS for venous thrombosis, systemic embolization; TREATMENT for venous thrombosis and/or pulmonary embolus.HIGH RISK: Target INR is 2.5-3.5 for patients with mechanical heart valves.CBC W/PLT COUNT & AUTO [id number] 07:09:25 Test Item Value Reference Range Interpretation [...] (BEAKER) (test code = 2801) BASIC METABOLIC [id number] 10:56:30 Test Item Value Reference Range Interpretation [...] S NOT APPLICABLE FOR DIALYSIS PATIEN TS. Software Quality Tester ID Andrea REDMONDpecimen slightly ictericHEPATIC FUNCTION PANEL [...] (test code = 28 U/L 6-55 347) Software Quality Tester ID - AMADOR REDMONDpecimen slightly [id number] 10:28:14 Test Item Value Reference Range Interpretation Comments PARTIAL THROMBOPLASTIN TIME 34.9 seconds 22.5-36.0 (BEAKER) (test code = 760) PROTHROMBIN TIME/[id number] 10:27:34 Test Item Value Reference Range Interpretation Comments PROTIME (BEAKER) 17.4 seconds 11.9-14.2 H (test code = 759) INR (BEAKER) (test 1.45 See_Comment [Automat ed message] code = 370) The system 9flats generated this result transmitted ref erence range: <=5.90. The reference range was not used to int erpret this result as normal/abnormal . RECOMMENDED COUMADIN/WARFARIN INR THERAPY RANGESSTANDARD DOSE: 2.0 - 3.0 Includes: PROPHYLAXIS for venous thrombosis, systemic embolization; TREATMENT for venous thrombosis and/or pulmonary embolus.HIGH RISK: Target INR is 2.5-3.5 for patients with mechanical heart valves.CBC W/PLT COUNT & AUTO [id number] 10:14:45 Test Item Value Reference Range Interpretation [...] (BEAKER) (test code = 2801) MR, ABDOMEN, [id number] 12:00:00REFERRING MD: CHERELLE SALVADOR Include Abdominal VesselsMENDOCINO [facility]ENTERName: [facility] : 1955 Sex: [...] (series 3, image 22) is likely outside sales account representative of a cyst, unchanged.*An 11 [...] nonocclusive thrombus. Patent main portal vein. Signed: Roman Mckeonort Verified Date/Time: 01/25/2021 12:00:12 Reading Location: [address] Reading Room Hepatitis C RNA Quantitative 2021-01-22 16:10:00 Test Item Value Reference Range Interpretation Comments HCV PCR, Quantitative HCV RNA not detected HCV RNA not (test code = 94422-6) detected MADALYN (test code = MADALYN) This test uses a Real-Time Polymerase Chain Reaction (RT-PCR) methodology and was performed using [employer] Ampliprep/KHOA TaqMan HCV test kit version 2.0 ([employer]). Reportable range for this assay is 15 - 100,000,000 IU per mL (1.18 - 8.00 Log IU/mL). Lab Interpretation Normal (test code = 17977-1) [facility] HospitalHEPATITIS C PCR, [id number] 16:10:00 Test Item Value Reference Range Interpretation Comments HCV RESULT COMPONENT HCV RNA not detected HCV RNA not detected ([place]ISON) (test code = 2699) This test uses a Real-Time Polymerase Chain Reaction (RT-PCR) methodology and was performed using KHOA Ampliprep/KHOA TaqMan HCV test kit version 2.0 ([employer]).Reportable range for this assay is 15 - 100,000,000 IU per mL (1.18 - 8.00 Log IU/mL).CT, CHEST, WITHOUT [id number] 15:56:00 REFERRING MD: CHERELLE SALVADOR Mets work up [facility]ALEN CARDONA : 1955 Sex: MFINAL REPORT [...] on follow-up imaging is suggested. Signed: Jeff Calzadaepdaron Verified Date/Time: 01/22/2021 15:56:37 Reading Location: [facility] Diagnostic Imaging Reading Room - [place] [address] 1129 ALPHA FETOPROTEIN (AFP), TUMOR [id number] 11:33:00 Test Item Value Reference Range Interpretation Comments ALPHA-FETOPROTEIN (BEAKER) (test 2.1 ng/mL <10.0 code = 1094) Software Quality Tester ID - ELOY MBASIC METABOLIC [id number] 11:23:00 Test Item Value Reference Range Interpretation [...] S NOT APPLICABLE FOR DIALYSIS PATIEN TS. Software Quality Tester ID - ELOY MHEPATIC FUNCTION [id number] 11:23:00 Test Item Value Reference Range Interpretation [...] (test code = 23 U/L 6-55 347) Software Quality Tester ID - ELOY MCBC W/PLT COUNT & AUTO [id number] 10:58:00 Test Item Value Reference Range Interpretation [...] PERCENT (BEAKER) (test code = 2801) PROTHROMBIN TIME/[id number] 10:46:00 Test Item Value Reference Range Interpretation Comments PROTIME (BEAKER) 16.4 seconds 11.9-14.2 H (test code = 759) INR (BEAKER) (test 1.35 See_Comment [Automat ed message] code = 370) The system 9flats generated this result transmitted ref erence range: <=5.90. The reference range was not used to int erpret this result as normal/abnormal . RECOMMENDED COUMADIN/WARFARIN INR THERAPY RANGESSTANDARD DOSE: 2.0 - 3.0 Includes: PROPHYLAXIS for venous thrombosis, systemic embolization; TREATMENT for venous thrombosis and/or pulmonary embolus.HIGH RISK: Target INR is 2.5-3.5 for patients with mechanical heart valves.ANG, EMBOLIZATION, EXTENSIVE - [id number] 08:41:00REFERRING : CHERELLE SALVADOR For TACEReason for Exam:->HCC, [facility]RHOSIS [facility] : 1955 Sex: [...] Estimated blood loss: <5 cc. Specimen: None. cut off machine operator: Xiang Colindres MD.. Automotive Shop Foreman: None. Fluoroscopy Time: 14.2 min .Reference Air Kerma (Ka, r): 1613 mGy. The skin was anesthetized with lidocaine. The right common femoral artery was accessed using a 21-gauge needle and a 0.018 inch microwire. A 4 Afghan catheter was placed over the wire and a 0.035 inch wire was placed through the catheter into the abdominal aorta. A 5 Afghan sheath was placed over the wire. A 5 Afghan SOS-II catheter was used to select the [...] right femoral artery and normal sheath position. IMPRESSION:1. Successful, uncomplicated mesenteric angiogram and right hepatic segment eight chemo-embolization, performed with conscious sedation.2. Left hepatic angiograms do not demonstrate hypervascular tumorblush associated with the smaller segment three lesion. Attention on follow-up imaging. If the lesion grows a follow-up angiogram can be performed with cone beam CT.3. Successful hemostasis using closure device. Signed: Xiang Colindres MDReport Verified Date/Time: 11/27/2020 08:41:43 C METABOLIC [id number] 08:59:00 Test Item Value Reference Range Interpretation [...] S NOT APPLICABLE FOR DIALYSIS PATIEN TS. Software Quality Tester ID - KRISHNA ZAVALETApecimen slightly ictericHEPATIC FUNCTION [id number] 08:59:00 Test Item Value Reference Range Interpretation [...] (test code = 24 U/L 6-55 347) Software Quality Tester ID - KRISHNA ZAVALETApecimekaz slightly ictericPROTHROMBIN TIME/[id number] 08:49:00 Test Item Value Reference Range Interpretation Comments PROTIME (BEAKER) 16.7 seconds 11.9-14.2 H (test code = 759) INR (BEAKER) (test 1.37 See_Comment [Automat ed message] code = 370) The system 9flats generated this result transmitted ref erence range: <=5.90. The reference range was not used to int erpret this result as normal/abnormal . RECOMMENDED COUMADIN/WARFARIN INR THERAPY RANGESSTANDARD DOSE: 2.0 - 3.0 Includes: PROPHYLAXIS for venous thrombosis, systemic embolization; TREATMENT for venous thrombosis and/or pulmonary embolus.HIGH RISK: Target INR is 2.5-3.5 for patients with mechanical heart valves.CBC W/PLT COUNT & AUTO [id number] 08:49:00 Test Item Value Reference Range Interpretation [...] 0-1 PERCENT (BEAKER) (test code = 2801) [id number] 08:49:00 Test Item Value Reference Range Interpretation Comments PARTIAL THROMBOPLASTIN TIME 34.6 seconds 22.5-36.0 (BEAKER) (test code = 760) HEPATITIS C PCR, [id number] 19:54:00 Test Item Value Reference Range Interpretation Comments HCV RESULT COMPONENT HCV RNA not detected HCV RNA not detected (BEAKER) (test code = 2699) This test uses a Real-Time Polymerase Chain Reaction (RT-PCR) methodology and was performed using KHO[employer] Ampliprep/KHOA TaqMan HCV test kit version 2.0 ([employer]).Reportable range for this assay is 15 - 100,000,000 IU per mL (1.18 - 8.00 Log IU/mL).BASIC METABOLIC [id number] 12:10:00 Test Item Value Reference Range Interpretation [...] S NOT APPLICABLE FOR DIALYSIS PATIEN TS. Software Quality Tester ID - FSEHEPATIC FUNCTION [id number] 12:10:00 Test Item Value Reference Range Interpretation [...] (test code = 26 U/L 6-55 347) Software Quality Tester ID - FSECBC W/PLT COUNT & AUTO [id number] 12:01:00 Test Item Value Reference Range Interpretation [...] PERCENT (BEAKER) (test code = 2801) PROTHROMBIN TIME/[id number] 11:53:00 Test Item Value Reference Range Interpretation Comments PROTIME (BEAKER) 16.3 seconds 11.9-14.2 H (test code = 759) INR (BEAKER) (test 1.35 See_Comment [Automat ed message] code = 370) The system 9flats generated this result transmitted ref erence range: [...] JOINT IMAGING, WHOLE BODY 2020-10-08 17:40:00REFJENISE GOMEZ: CHERELLE SALVADOR [facility] : 1955 Sex: MFINAL REPORT PROCEDURE: BONE SCAN, WHOLE BODY CPT CODE: 78376 INDICATION: Hepatocellularcarcinoma PROTOCOL: 21.0 mCi of Tc-99m [...] MDReport Verified Date/Time: 10/08/2020 17:40:47 Reading Location: [address] [address] Reading Room CT, CHEST, WITHOUT [id number] 12:54:00REFERRING MD: CHERELLE SALVADOR [facility] KALEN CARDONA : 1955 Sex: MFINAL REPORT [...] atelectasis.3. Hiatal hernia4. Cirrhosis.Signed: Brenda De Dios Verified Date/Time: 10/08/2020 12:54:21 Reading Location: [facility] B1 C013Y CT Body Reading Room ALPHA FETOPROTEIN (AFP), TUMOR [id number] 12:52:00 Test Item Value Reference Range Interpretation Comments ALPHA-FETOPROTEIN (BEAKER) (test 2.5 ng/mL <10.0 code = 1094) Software Quality Tester ID - DEBORAH CBASIC METABOLIC [id number] 11:26:00 Test Item Value Reference Range Interpretation [...] S NOT APPLICABLE FOR DIALYSIS PATIEN TS. Software Quality Tester ID - PIAYA LHEPATIC FUNCTION [id number] 11:26:00 Test Item Value Reference Range Interpretation [...] (test code = 29 U/L 6-55 347) Software Quality Tester ID - KRISHNA LCBC W/PLT COUNT & AUTO [id number] 11:14:00 Test Item Value Reference Range Interpretation [...] PERCENT (BEAKER) (test code = 2801) PROTHROMBIN TIME/[id number] 11:12:00 Test Item Value Reference Range Interpretation Comments PROTIME (BEAKER) 16.7 seconds 11.9-14.2 H (test code = 759) INR (BEAKER) (test 1.39 See_Comment [Automat ed message] code = 370) The system 9flats generated this result transmitted ref erence range: [...] for patients wiht mechanical heart valves.MR, ABDOMEN, [id number] 16:24:00 REFERRING MD: CHERELLE SALVADOR Include Abdominal VesselsUnlisted Reason for Exam - Click Yes and EnterReason Below->YesUnlisted Reason for Exam->awaiting organ transplant, cirrhosis, screening forcancer [facility] : 1955 Sex: [...] varices. 3.Moderate sized right pleural effusion Signed: Isaías Alvarez MDReport Verified Date/Time: 09/02/2020 16:24:23 ALPHA FETOPROTEIN (AFP), TUMOR [id number] 16:57:00 Test Item Value Reference Range Interpretation Comments ALPHA-FETOPROTEIN (BEAKER) (test code < ng/mL <10.0 = 1094) Software Quality Tester ID - BSBASIC METABOLIC [id number] 14:50:00 Test Item Value Reference Range Interpretation [...] S NOT APPLICABLE FOR DIALYSIS PATIEN TS. Software Quality Tester ID - EDASISpecimen slightly ictericHEPATIC FUNCTION [id number] 14:50:00 Test Item Value Reference Range Interpretation [...] (test code = 26 U/L 6-55 347) Software Quality Tester ID - EDASISpecimen slightly ictericCBC W/PLT COUNT & AUTO [id number] 14:45:00 Test Item Value Reference Range Interpretation [...] PERCENT (BEAKER) (test code = 2801) PROTHROMBIN TIME/[id number] 14:40:00 Test Item Value Reference Range Interpretation Comments PROTIME (BEAKER) 17.6 seconds 11.9-14.2 H (test code = 759) INR (BEAKER) (test 1.49 See_Comment [Automat ed message] code = 370) The system 9flats generated this result transmitted ref erence range: [...] for patients wiht mechanical heart valves.Chest 1 [id number] 14:03:55 Small right pleural effusion with right [...] effusion with right basilar pneumonia and/oratelectasis.RL: [address] [facility] HospitalTroponin [id number] 13:32:55 Test Item Value Reference Range Interpretation Comments TROPONIN I (test <0.012 See_Comment [Automated code = 0149242203) message] The system which generated this result [...] ? Lab Interpretation Normal (test code = 63700-3) [facility] HospitalN-[facility]MINAL [id number] 13:29:55 Test Item Value Reference Range Interpretation Comments NT-proBNP (test code 119 pg/mL See_Comment [Autom ated = 6455336406) message] The system which generated this result transmitted reference range : <=125. The reference range was not used to interpret this result as normal/abnormal . MADALYN (test code = MADALYN) Biotin has been reported to cause a negative bias, interpret results relative to patient's use of biotin. Lab Interpretation Normal (test code = 91080-4) [facility] HospitalCOVID-19 (ID NOW RAPID TESTING)2020-08-19 13:23:14 Test Item Value Reference Range Interpretation Comments SARS-CoV-2 Rapid ID NOW Not Detected Not Detected (test code = 89541-4) MADALYN (test code = MADALYN) ID NOW COVID-19 Assay is an isothermal nucleic acid amplification test intended for the qualitative detection of nucleic acid from SARS-CoV-2 viral RNA in nasopharyngeal (AUTOMATION CONSULTANT) specimens. It is used under Emergency Use [...] indicated. Lab Interpretation Normal (test code = 79453-5) [facility] HospitalBasaint [facility] Metabolic Panel (NA, K, CL, CO2, GLUCOSE, BUN, CREATININE, CA)2020-08-19 13:21:13 Test Item Value Reference Range Interpretation Comments NA (test code = 135 mmol/L 135-145 8773472723) K (test code = 4.1 mmol/L 3.5-5.0 5241286594) CL (test code = 106 mmol/L 98-108 5471714727) CO2 TOTAL (test code = 24 mmol/L 23-31 5066587246) AGAP (test code = 2-16 1748355159) BUN (test code = 7 mg/dL 7-23 0801306036) GLUCOSE (test code = 216 mg/dL 70-110 H 1219846780) CREATININE (test code = 0.59 mg/dL 0.60-1.25 L 8010767375) CALCIUM (test code = 8.2 mg/dL 8.6-10.6 L 6042638347) eGFR Calculation mL/min/1.73m2 (Non-) (test code = 7190987201) eGFR Calculation mL/min/1.73m2 () (test code = 3652663155) MADALYN (test code = MADALYN) Association of [...] tests). Lab Interpretation Abnormal (test code = 10311-0) [facility] HospitalHepatic Function Panel (ALB, T.PRO, BILI T, BU/BC, ALT, AST, ALK PHOS)2020-08-19 13:21:12 Test Item Value Reference Range Interpretation Comments TOTAL BILI (test code = 7327314126) 1.9 mg/dL 0.1-1.1 H BILI UNCON (test code = 4126414566) 1.7 mg/dL 0.1-1.1 H BILI CONJ (test code = 8358814621) 0.0 mg/dL 0.0-0.3 T PROTEIN (test code = 0837279215) 6.3 g/dL 6.3-8.2 ALBUMIN (test code = 7322234978) 3.0 g/dL 3.5-5.0 L ALK PHOS (test code = 3932617347) 162 U/L 34-122 H ALTv (test code = 1742-6) 25 U/L 5-50 AST(SGOT) (test code = 3571079508) 41 U/L 13-40 H Lab Interpretation (test code = Abnormal 41835-0) [facility] HospitalLipase [id number] 13:21:12 Test Item Value Reference Range Interpretation Comments LIPASE (test code = 8379960397) 145 U/L 0-220 Lab Interpretation (test code = Normal 83062-8) [facility] HospitalCBC with [id number] 13:17:56 Test Item Value Reference Range Interpretation Comments WBC (test code = See_Comment [Automated 6690-2) message] The sy stem which generated this result transmitted reference range : 4.20 - 10.70 10*3/?L. The reference range was not used to interpret this result as normal/abnormal . RBC (test code = See_Comment L [Automated 199-8) message] The sy stem which generated this [...] RDW-SD (test code = 48.3 fL 38.5-51.6 75684-7) RDW-CV (test code = 21.4 % 12.1-15.4 H 788-0) PLT (test code = See_Comment L [Automated 777-3) message] The sy stem which generated this result transmitted reference range : 150 - 328 10*3/ ?L. The reference r mela was not used to interpret this result as normal/abnormal . MPV (test code = Not Measure d 82749-0) IPF % (test code = 2.3 % 1.2-10.7 Platelet count 5374904431) measured by fluorescence method. NRBC/100 WBC (test See_Comment [Automat ed code = 7585564844) message] The system which generated this result transmitted reference range : 0.0 - 10.0 /100 WBCs. The refer ence range was not u sed to interpret th is result as normal/abnormal . NRBC x10^3 (test code <0.01 See_Comment [Auto mated = 9503744640) message] The s ystem which generated this result transmitted reference range : 10*3/?L. The reference range was not used to interpret this result as normal/abnormal . GRAN MAT (NEUT) % 56.4 % (test code = 770-8) IMM GRAN % (test code 0.20 % = 7942110229) LYMPH % (test code = 27.6 % 736-9) MONO % (test code = 10.7 % 5905-5) EOS % (test code = 3.7 % 713-8) BASO % (test code = 1.4 % 706-2) GRAN MAT x10^3(ANC) 2.47 10*3/uL 1.99-6.95 (test code = 7299715649) IMM GRAN x10^3 (test <0.03 0.00-0.06 code = 0719757754) LYMPH x10^3 (test code 1.21 10*3/uL 1.09-3.23 = 731-0) MONO x10^3 (test code 0.47 10*3/uL 0.36-1.02 = 742-7) EOS x10^3 (test code = 0.16 10*3/uL 0.06-0.53 711-2) BASO x10^3 (test code 0.06 10*3/uL 0.01-0.09 = 704-7) Lab Interpretation Abnormal (test code = 00257-4) [facility] HospitalPROTHROMBIN TIME / [id number] 01:49:00 Test Item Value Reference Range Interpretation Comments PROTIME PATIENT (test See_Comment H [Auto mated message] code = 5964-2) The system [employer] ich generated this result transmitted ref erence range: 12.0 - 1 4.7 Seconds. The reference range was not used to int erpret this result as normal/abnormal . INR (test code = 6301-6) Nor mal INR <1.1; Warfarin Therap eutic range 2.0 to 3. 0 or 2.5 to 3.5, dep ending upon the indica tions. Lab Interpretation (test Abnormal code = 80731-9) [facility] HospitalMAGNESIUM2021-01-29 01:27:00 Test Item Value Reference Range Interpretation Comments MAGNESIUM (test code = 5740473366) 1.6 mg/dL 1.7-2.4 L Lab Interpretation (test code = Abnormal 31050-8) [facility] HospitalAMMONIA, [id number] 01:26:00 Test Item Value Reference Range Interpretation Comments AMMONIA (test code = 5401220849) 37 umol/L 9-33 H Lab Interpretation (test code = Abnormal 14854-7) [facility] HospitalUrinalysis2021-01-29 00:30:00 Test Item Value Reference Range Interpretation Comments APPEARANCE (test code = Clear Clear 4299755328) COLOR (test code = Addison Yellow A 4867415840) PH (test code = 4.8-8.0 0929190404) SP GRAVITY (test code = 1.003-1.030 1833130210) GLU U QUAL (test code = Normal Normal 2536430376) BLOOD (test code = Negative Negative INTERFERE NCE FROM 9383803136) ASCORBIC ACID M AY CAUSE FALSE NEG ATIVE RESULT KETONES (test code = Negative Negative 7458934425) PROTEIN (test code = Negative Negative 2887-8) UROBILIN (test code = 4.0 mg/dL Normal A 2580734733) BILIRUBIN (test code = Negative Negative 3601609321) NITRITE (test code = Negative Negative 2391014270) LEUK KIKI (test code = Negative Negative 7270061091) RBC/HPF (test code = See_Comment [Autom ated message] 1315261936) The system 9flats generated this result transmitted ref erence range: 0 - 3 HP F. The reference range was not used to int erpret this result as normal/abnormal . WBC/HPF (test code = See_Comment [Autom ated message] 3793582992) The system 9flats generated this result transmitted ref erence range: 0 - 5 HP F. The reference range was not used to int erpret this result as normal/abnormal . BACTERIA (test code = Negative Negative 0318489151) MUCOUS (test code = Slight Negative LPF A 1266944408) SQ EPITH (test code = HPF 7416578017) CA OXALATE (test code = See_Comment [Au tomated message] 7802768559) The system 9flats generated this result transmitted ref erence range: <=1 HPF. The reference range was not used to int erpret this result as normal/abnormal . TRANS EPI (test code = <1 See_Comment [Aut omated message] 3353030974) The system 9flats generated this result transmitted ref erence range: <=1 HPF. The reference range was not used to int erpret this result as normal/abnormal . Lab Interpretation Abnormal (test code = 15661-4) [facility] 1 [id number] 00:22:38Elevation of the right hemidiaphragm of moderate [...] atelectasis or pneumonia.RL: [address] [address] HospitalTroponin [id number] 00:18:00 Test Item Value Reference Range Interpretation Comments TROPONIN I (test <0.012 See_Comment [Automated code = 5638570817) message] The system which generated this result [...] ? Lab Interpretation Normal (test code = 58403-8) [facility] HospitalN-TERMINAL [id number] 00:15:00 Test Item Value Reference Range Interpretation Comments NT-proBNP (test code 175 pg/mL See_Comment H [Autom ated = 3676333855) message] The system which generated this result transmitted reference range : <=125. The reference range was not used to interpret this result as normal/abnormal . MADALYN (test code = MADALYN) Biotin has been reported to cause a negative bias, interpret results relative to patient's use of biotin. Lab Interpretation Abnormal (test code = 89086-0) [facility] HospitalCOVID[facility] (ID NOW RAPID TESTING)2020-06-26 00:08:00 Test Item Value Reference Range Interpretation Comments SARS-CoV-2 Rapid ID NOW Not Detected Not Detected (test code = 20062-8) MADALYN (test code = MADALYN) ID NOW COVID-19 Assay is an isothermal nucleic acid amplification test intended for the qualitative detection of nucleic acid from SARS-CoV-2 viral RNA in nasopharyngeal (AUTOMATION CONSULTANT) specimens. It is used under Emergency Use [...] indicated. Lab Interpretation Normal (test code = 28158-8) [facility] Metabolic Panel (NA, K, CL, CO2, GLUCOSE, BUN, CREATININE, CA)2020-06-26 00:06:00 Test Item Value Reference Range Interpretation Comments NA (test code = 137 mmol/L 135-145 5431546480) K (test code = 3.4 mmol/L 3.5-5 L 7106060850) CL (test code = 104 mmol/L 98-108 1314323809) CO2 TOTAL (test code = 26 mmol/L 23-31 4334311351) AGAP (test code = 2-16 8244829028) BUN (test code = 6 mg/dL 7-23 L 5982802380) GLUCOSE (test code = 118 mg/dL 70-110 H 6282311749) CREATININE (test code = 0.60 mg/dL 0.6-1.25 9178495534) CALCIUM (test code = 7.9 mg/dL 8.6-10.6 L 4566870611) eGFR Calculation mL/min/1.73m2 (Non-) (test code = 9839675013) eGFR Calculation mL/min/1.73m2 () (test code = 6285600806) MADALYN (test code = MADALYN) Association of [...] tests). Lab Interpretation Abnormal (test code = 78872-6) [facility] HospitalHepatic Function Panel (ALB, T.PRO, BILI T, BU/BC, ALT, AST, ALK PHOS)2020-06-26 00:06:00 Test Item Value Reference Range Interpretation Comments TOTAL BILI (test code = 1495128927) 2.2 mg/dL 0.1-1.1 H BILI UNCON (test code = 4771117835) 1.8 mg/dL 0.1-1.1 H BILI CONJ (test code = 1153735137) 0.0 mg/dL 0-0.3 T PROTEIN (test code = 7066039505) 6.8 g/dL 6.3-8.2 ALBUMIN (test code = 1560334955) 3.1 g/dL 3.5-5 L ALK PHOS (test code = 3546322245) 162 U/L 34-122 H ALTv (test code = 1742-6) 22 U/L 5-50 AST(SGOT) (test code = 8765621684) 42 U/L 13-40 H Lab Interpretation (test code = Abnormal 57867-8) [facility] HospitalLipase [id number] 00:06:00 Test Item Value Reference Range Interpretation Comments LIPASE (test code = 4893422504) 156 U/L 0-220 Lab Interpretation (test code = Normal 82348-3) [facility] HospitalCBC with Qeynwwdramyc8505-58-10 00:00:00 Test Item Value Reference Range Interpretation [...] RDW-SD (test code = 49.4 fL 38.5-51.6 31936-6) RDW-CV (test code = 21.6 % 12.1-15.4 H 788-0) PLT (test code = See_Comment L [Automated 777-3) message] The sy stem which generated this result transmitted reference range : 150 - 328 10*3/ ?L. The reference r mela was not used to interpret this result as normal/abnormal . MPV (test code = Not Measure d 58626-7) IPF % (test code = 1.9 % 1.2-10.7 Platelet count 1667369141) measured by fluorescence method. NRBC/100 WBC (test See_Comment [Automat ed code = 9132774596) message] The system which generated this result transmitted reference range : 0.0 - 10.0 /100 WBCs. The refer ence range was not u sed to interpret th is result as normal/abnormal . NRBC x10^3 (test code <0.01 See_Comment [Auto mated = 5097062444) message] The s ystem which generated this result transmitted reference range : 10*3/?L. The reference range was not used to interpret this result as normal/abnormal . GRAN MAT (NEUT) % 44.8 % (test code = 770-8) IMM GRAN % (test code 0.20 % = 1972584584) LYMPH % (test code = 37.2 % 736-9) MONO % (test code = 13.6 % 5905-5) EOS % (test code = 2.7 % 713-8) BASO % (test code = 1.5 % 706-2) GRAN MAT x10^3(ANC) 2.47 10*3/uL 1.99-6.95 (test code = 3201137700) IMM GRAN x10^3 (test <0.03 0-0.06 code = 7131276632) LYMPH x10^3 (test code 2.05 10*3/uL 1.09-3.23 = 731-0) MONO x10^3 (test code 0.75 10*3/uL 0.36-1.02 = 742-7) EOS x10^3 (test code = 0.15 10*3/uL 0.06-0.53 711-2) BASO x10^3 (test code 0.08 10*3/uL 0.01-0.09 = 704-7) Lab Interpretation Abnormal (test code = 37173-6) [facility] [id number] 12:02:00 Test Item Value Reference Range Interpretation Comments SCAN RESULT (test code = 8056914) SARS-COV2/RT-PCR ([facility])2020-03-13 20:20:00 Test Item Value Reference Range Interpretation Comments SARS-COV2/RT-PCR (test Negative Not Detected, Negative, code = 1605680) See external report for linked test SARS-COV-2 PERFORMING LAB [facility] KAT (test code = 2671329) Negative result for this test determines that [...] of the Act.Fact Sheet for Healthcare Prov iders:https://www.[employer].com/sites/default/files/product/documents/Fact_Sheet_HC _Qssiluasl_Fjjn_ILZX-BvX-2.pdfFact Sheet for Healthcare Patients:https://www.[employer].com/sites/default/files/product/docume nts/Afpw_Gvzeu_Oduehekx_Hran_XZHQ-AmL-9.pdfPerforming Laboratory:[facility], [place] [address]VH, ABDOMEN, WITH 2020-03-13 14:43:00REFERRING : CHERELLE SALVADOR Include Abdominal VesselsUnlisted Reason for Exam - Click Yes and EnterReason Below- >YesUnlisted Reason for Exam->listed for liver transplant, screening for malignancySPECIALTY [facility]OSPITAL OF SOU[facility] CALIFORNIAName: KALEN CARDONA : 1955 Sex: MFINAL REPORT [...] in the liver. Spleen is enlarged measuring sgfpbqmoiuxtx32.8 x 4.9 x 11.4 cm. The splenic, [...] (test code < ng/mL <10.0 = 1094) Software Quality Tester ID - AAHAMIDCOMPREHENSIVE METABOLIC [id number] 12:54:00 Test Item Value Reference Range Interpretation [...] S NOT APPLICABLE FOR DIALYSIS PATIEN TS. Software Quality Tester ID - AAHAMMARIAN, BONE DENSITY [id number] 12:46:00REFERRING : CHERELLE SALVADOR Reason for Exam:->on liver transplant waiting list [facility] : 1955 Sex: MFINAL REPORT Bone density study, 03/13/2020 Clinical History: Screening Bone mineral density measurementLumbar spine1.110 gm/cq5Kysiqbp neck0.918 gm/cm2 Standard deviation from young adult [...] MDReport Verified Date/Time: 03/13/2020 12:46:53 Reading Location: [address] Reading Room BILIRUBIN, [id number] 12:38:00 Test Item Value Reference Range Interpretation Comments BILIRUBIN DIRECT (BEAKER) (test 1.0 mg/dL 0.1-0.5 H code = 706) Software Quality Tester ID - AAHAMIDPROTHROMBIN TIME/[id number] 12:23:00 Test Item Value Reference Range Interpretation [...] mechanical heart valves.CBC W/PLT COUNT & AUTO [id number] 12:16:00 Test Item Value Reference Range Interpretation [...] PERCENT (BEAKER) (test code = 2801) BLOOD [id number] 20:00:00 Test Item Value Reference Range Interpretation Comments CULTURE (BEAKER) (test No growth in 5 days code = 1095) BLOOD [id number] 20:00:00 Test Item Value Reference Range Interpretation Comments CULTURE (BEAKER) (test No growth in 5 days code = 1095) POCT-GLUCOSE [id number] 07:47:00 Test Item Value Reference Range Interpretation Comments POC-GLUCOSE METER 121 mg/dL 70-110 H : TESTED A T [facility] 6720 (BEAKER) (test code = [place], 1538) 51117: Software Quality Tester/Techni zaire ID = [id number] for RADHA GARVEY HEPATIC FUNCTION [id number] 07:24:00 Test Item Value Reference Range Interpretation [...] (test code = 25 U/L 6-55 347) Software Quality Tester ID - KRISHNA calix ictericPOCT-GLUCOSE [id number] 22:18:00 Test Item Value Reference Range Interpretation Comments POC-GLUCOSE METER 143 mg/dL 70-110 H : TESTED A T [facility] 6720 (BEAKER) (test code = [place], 1538) 32986: Software Quality Tester/Techni zaire ID = [id number] for CA RBAJAL, ANU POCT-GLUCOSE [id number] 17:24:00 Test Item Value Reference Range Interpretation Comments POC-GLUCOSE METER 214 mg/dL 70-110 H : TESTED A T [facility] 6720 ([facility]) (test code = [place], 1538) 38112: Software Quality Tester/Techni zaire ID = [id number] for SA NTOS, WADE POCT-GLUCOSE [id number] 13:32:00 Test Item Value Reference Range Interpretation Comments POC-GLUCOSE METER 127 mg/dL 70-110 H : TESTED A T [facility] 6720 (BEAKER) (test code = [place], 1538) 68067: Software Quality Tester/Techni zaire ID = [id number] for SA NTOS, WADE POCT-GLUCOSE [id number] 12:08:00 Test Item Value Reference Range Interpretation Comments POC-GLUCOSE METER 124 mg/dL 70-110 H : TESTED A T [facility] 6720 (BEAKER) (test code = [place], 1538) 72894: Software Quality Tester/Techni zaire ID = [id number] for FO SNIGHT, CHARI POCT-GLUCOSE [id number] 08:16:00 Test Item Value Reference Range Interpretation Comments POC-GLUCOSE METER 117 mg/dL 70-110 H : TESTED A T [facility] 6720 (BEAKER) (test code = [place], 1538) 35550: Software Quality Tester/Techni zaire ID = [id number] for SA NTOS, WADE BASIC METABOLIC [id number] 06:13:00 Test Item Value Reference Range Interpretation [...] S NOT APPLICABLE FOR DIALYSIS PATIEN TS. Software Quality Tester ID - ALEJANDRODAMIAN MEGHANNpecimen slightly ictericHEPATIC FUNCTION [id number] 06:13:00 Test Item Value Reference Range Interpretation [...] (test code = 27 U/L 6-55 347) Software Quality Tester ID - ALEJANDRODAMIAN MEGHANNpecdayanan slightly ictericPROTHROMBIN [id number] 05:46:00 Test Item Value Reference Range Interpretation [...] mechanical heart valves.CBC W/PLT COUNT & AUTO [id number] 05:21:00 Test Item Value Reference Range Interpretation [...] PERCENT (BEAKER) (test code = 2801) POCT-GLUCOSE [id number] 22:38:00 Test Item Value Reference Range Interpretation Comments POC-GLUCOSE METER 181 mg/dL 70-110 H : TESTED A T [facility] 6720 (BEAKER) (test code = [place], 1538) 85822: Software Quality Tester/Techni zaire ID = [id number] for RON BLANCO (CELLAVISION MANUAL DIFF)2019-12-28 15:15:00 [...] CONCENTRATION Decreased (CELLAVISION)(BEAKER) (test code = 3438) Software Quality Tester ID - Nima Villafuerte comments: Slide comments:CBC W/PLT COUNT & AUTO [id number] 15:11:00 Test Item Value Reference Range Interpretation [...] PERCENT (BEAKER) (test code = 2801) POCT-GLUCOSE [id number] 10:15:00 Test Item Value Reference Range Interpretation Comments POC-GLUCOSE METER 178 mg/dL 70-110 H : TESTED A T [facility] 6720 (BEAKER) (test code = [place], 1538) 64265: Software Quality Tester/Techni zaire ID = [id number] for DELPHINE JUAREZ POCT-GLUCOSE [id number] 09:08:00 Test Item Value Reference Range Interpretation Comments POC-GLUCOSE METER 167 mg/dL 70-110 H : TESTED A T [facility] 6720 (BEAKER) (test code = [place], 1538) 66772: Software Quality Tester/Techni zaire ID = [id number] for SAMIRA COWAN BASIC METABOLIC [id number] 07:06:00 Test Item Value Reference Range Interpretation [...] S NOT APPLICABLE FOR DIALYSIS PATIEN TS. Software Quality Tester ID - PIAYA LSpecimen slightly ictericHEPATIC FUNCTION [id number] 07:06:00 Test Item Value Reference Range Interpretation [...] (test code = 20 U/L 6-55 347) Software Quality Tester ID - KRISHNA Isaac slightly ictericPOCT-GLUCOSE [id number] 22:05:00 Test Item Value Reference Range Interpretation Comments POC-GLUCOSE METER 216 mg/dL 70-110 H : TESTED A T [facility] 6720 (BEAKER) (test code = [place], 1538) 45943: Software Quality Tester/Techni zaier ID = [id number] for DAVID TALBERT POCT-GLUCOSE [id number] 17:07:00 Test Item Value Reference Range Interpretation Comments POC-GLUCOSE METER 244 mg/dL 70-110 H : TESTED A T [facility] 6720 (BEAKER) (test code = NICOLE Arita [facility], 1538) 46248: Software Quality Tester/Techni zaire ID = [id number] for IB DIDI, ANUSHALEM CBC W/PLT COUNT & AUTO [id number] 12:15:00 Test Item Value Reference Range Interpretation [...] PERCENT (BEAKER) (test code = 2801) POCT-GLUCOSE [id number] 11:54:00 Test Item Value Reference Range Interpretation Comments POC-GLUCOSE METER 226 mg/dL 70-110 H : TESTED A T [facility] 6720 (BEAKER) (test code = NICOLE Arita [facility], 1538) 78656: Software Quality Tester/Techni zaire ID = [id number] for IB CHUCHO TOLBERT BASIC METABOLIC [id number] 08:18:00 Test Item Value Reference Range Interpretation [...] S NOT APPLICABLE FOR DIALYSIS PATIEN TS. Software Quality Tester ID - NTPPOCT-GLUCOSE [id number] 08:07:00 Test Item Value Reference Range Interpretation Comments POC-GLUCOSE METER 166 mg/dL 70-110 H : TESTED A T [facility] 6720 (BEAKER) (test code = [place], 1538) 38520: Software Quality Tester/Techni zaire ID = [id number] for CHUCHO SALDIVAR HEPATIC FUNCTION [id number] 05:05:00 Test Item Value Reference Range Interpretation [...] (test code = 19 U/L 6-55 347) Software Quality Tester ID - EDASISpecimen slightly ictericPOCT-GLUCOSE [id number] 17:47:00 Test Item Value Reference Range Interpretation Comments POC-GLUCOSE METER 222 mg/dL 70-110 H : TESTED A T [facility] 6720 (BEAKER) (test code = [place], 1538) 69344: Software Quality Tester/Techni zaire ID = [id number] for ANEESH ORONAENOCHBRAXTON Quiñones POCT-GLUCOSE [id number] 12:25:00 Test Item Value Reference Range Interpretation Comments POC-GLUCOSE METER 311 mg/dL 70-110 H : TESTED A T [facility] 6720 (BEAKER) (test code = NICOLE Arita [facility], 1538) 18224: Software Quality Tester/Techni zaire ID = [id number] for BRAXTON MORAN POCT-GLUCOSE [id number] 07:49:00 Test Item Value Reference Range Interpretation Comments POC-GLUCOSE METER 190 mg/dL 70-110 H : TESTED A T [facility] 6720 (BEAKER) (test code = NICOLE Arita [facility], 1538) 39983: Software Quality Tester/Techni zaire ID = [id number] for BRAXTON MORAN VITAMIN B12 AND [id number] 06:11:00 Test Item Value Reference Range Interpretation Comments VITAMIN B12 (BEAKER) (test code = 873 pg/mL 213-816 H 774) FOLATE (BEAKER) (test code = 362) 12.30 ng/mL >=7.00 Software Quality Tester ID - EDASIBASIC METABOLIC [id number] 05:21:00 Test Item Value Reference Range Interpretation [...] S NOT APPLICABLE FOR DIALYSIS PATIEN TS. Software Quality Tester ID - EDASIHEPATIC FUNCTION [id number] 05:21:00 Test Item Value Reference Range Interpretation [...] (test code = 19 U/L 6-55 347) Software Quality Tester ID - EDASICBC W/PLT COUNT & AUTO [id number] 05:12:00 Test Item Value Reference Range Interpretation [...] PERCENT (BEAKER) (test code = 2801) PROTHROMBIN [id number] 04:56:00 Test Item Value Reference Range Interpretation [...] 2.5-3.5 for patients wiht mechanical heart valves.POCT-GLUCOSE [id number] 22:11:00 Test Item Value Reference Range Interpretation Comments POC-GLUCOSE METER 195 mg/dL 70-110 H : TESTED A T [facility] 6720 (BEAKER) (test code = [place], 1538) 50242: Software Quality Tester/Techni zaire ID = [id number] for SAMIRA COWAN HEMOGLOBIN AND [id number] 16:15:00 Test Item Value Reference Range Interpretation Comments HEMOGLOBIN (BEAKER) (test code = 8.6 GM/DL 13.7-17.5 L 410) HEMATOCRIT (BEAKER) (test code = 30.2 % 40.1-51.0 L 411) Software Quality Tester ID - [id number] 13:02:00 Test Item Value Reference Range Interpretation Comments FERRITIN (BEAKER) (test code = 73.10 ng/mL 5.00-275.00 361) Software Quality Tester ID - EDASIIRON, TIBC, % SAT. (WITHOUT FERRITIN)2019-12-25 12:42:00 Test Item Value Reference Range Interpretation Comments IRON (BEAKER) (test code = 547) 29.0 ug/dL 40.0-160.0 L TOTAL IRON BINDING CAPACITY 151 ug/dL 250-450 L (BEAKER) (test code = 769) IRON % SATURATION (2) (BEAKER) 19 % 20-55 L (test code = 2590) Software Quality Tester ID - EDASICOMPREHENSIVE METABOLIC [id number] 06:44:00 Test Item Value Reference Range Interpretation [...] S NOT APPLICABLE FOR DIALYSIS PATIEN TS. Software Quality Tester ID - EDASICBC W/PLT COUNT & AUTO [id number] 05:55:00 Test Item Value Reference Range Interpretation [...] PERCENT (BEAKER) (test code = 2801) POCT-GLUCOSE [id number] 23:39:00 Test Item Value Reference Range Interpretation Comments POC-GLUCOSE METER 307 mg/dL 70-110 H : TESTED A T [facility] 6720 (BEAKER) (test code = NICOLE Arita [facility], 1538) 67943: Software Quality Tester/Techni zaire ID = [id number] for Erendira Talbert (contrac t) RAD, CHEST, 1 VIEW, NON [id number] 18:52:00REFERRING MD: CHERELLE SALVADOR Reason for exam:->sobShould [...] MDReport Verified Date/Time: 12/24/2019 18:52:34 Reading Location: [address] Consult Reading Room BASI METABOLIC PANEL [...] Specimen slightly ictericCBC W/PLT COUNT & AUTO [id number] 08:54:00 Test Item Value Reference Range Interpretation [...] (BEAKER) (test code = 2801) HEPATITIS C [id number] 12:25:00 Test Item Value Reference Range Interpretation Comments HEPATITIS C ANTIBODY (BEAKER) (test Reactive Nonreactive A code = 367) ALPHA FETOPROTEIN (AFP), TUMOR [id number] 15:45:00 Test Item Value Reference Range Interpretation Comments ALPHA-FETOPROTEIN (BEAKER) (test 2.7 ng/mL <10.0 code = 1094) BASIC METABOLIC [id number] 15:36:00 Test Item Value Reference Range Interpretation [...] DIALYSIS PATIEN TS. Specimen slightly ictericHEPATIC FUNCTION [id number] 15:35:00 Test Item Value Reference Range Interpretation [...] 21 U/L 6-55 347) Specimen slightly ictericPROTHROMBIN [id number] 15:00:00 Test Item Value Reference Range Interpretation [...] mechanical heart valves.CBC W/PLT COUNT & AUTO [id number] 14:53:00 Test Item Value Reference Range Interpretation [...] code = 2801) ALPHA FETOPROTEIN (AFP), TUMOR [id number] 14:10:00 Test Item Value Reference Range Interpretation Comments ALPHA-FETOPROTEIN (BEAKER) (test 2.7 ng/mL <10.0 code = 1094) BASIC METABOLIC [id number] 13:52:00 Test Item Value Reference Range Interpretation [...] DIALYSIS PATIEN TS. Specimen slightly ictericHEPATIC FUNCTION [id number] 13:52:00 Test Item Value Reference Range Interpretation [...] 24 U/L 6-55 347) Specimen slightly ictericPROTHROMBIN [id number] 13:49:00 Test Item Value Reference Range Interpretation [...] mechanical heart valves.CBC W/PLT COUNT & AUTO [id number] 13:35:00 Test Item Value Reference Range Interpretation [...] (test code = 2801) POCT HEMOGLOBIN A1C [id number] 21:30:00 Test Item Value Reference Range Interpretation Comments POCT HBA1C (test code = 4548-4) 7.4 % 4-6 A Lab Interpretation (test code = Abnormal 10860-4) [facility] [id number] 21:30:00 Test Item Value Reference Range Interpretation Comments POCT HBA1C (test code = 4548-4) 7.4 % 4-6 A Lab Interpretation (test code = Abnormal 41962-7) [id number] 14:59:00 Test Item Value Reference Range Interpretation Comments T4 TOTAL (BEAKER) (test code = 895) 5.7 ug/dL 4.9-11.7 [id number] 13:20:00 Test Item Value Reference Range Interpretation Comments T3 TOTAL (BEAKER) (test code = 656) 113 ng/dL 48-159 CYTOMEGALOVIRUS ANTIBODY, [id number] 11:11:00 Test Item Value Reference Range Interpretation Comments CYTOMEGALOVIRUS, IGG (BEAKER) Positive Negative, Equivocal A (test code = 3429) CMV IgG Result Interpretation: </= 0.8 Al Negative 0.9-1.0 Al Equivocal >/=1.1 Al PositiveCYTOMEGALOVIRUS ANTIBODY, [id number] 11:11:00 Test Item Value Reference Range Interpretation Comments CYTOMEGALOVIRUS IGM ANTIBODY Negative Negative, Equivocal (BEAKER) (test code = 3437) CMV IgM Result Interpretation: </= 0.8 Al Negative 0.9-1.0 Al Equivocal >/= 1.1 Al PositiveEBV ANTIBODY, [id number] 11:08:00 Test Item Value Reference Range Interpretation Comments EDENILSON TAVERAS VIRAL CAPSID Positive Negative, Equivocal A ANTIGEN IGG (BEAKER) (test code = 3415) Edenilson Taveras Viral Capsid Antigen IgG Result Interpretation: </= 0.8 Al Negative 0.9-1.0 Al Equivocal >/= 1.1 Al PositiveEBV ANTIBODY, [id number] 11:08:00 Test Item Value Reference Range Interpretation Comments EDENILSON TAVERAS VIRAL CAPSID Negative Negative, Equivocal ANTIGEN IGM (BEAKER) (test code = 3418) Deenilson Taveras Viral Capsid Antigen IgM Result Interpretation: </= 0.8 Al Negative 0.9-1.0 Al Equivocal >/= 1.1 Al PositiveVARICELLA ZOSTER ANTIBODY, [id number] 11:08:00 Test Item Value Reference Range Interpretation Comments VARICELLA ZOSTER IGG (AL) (BEAKER) > (test code = 3197) VARICELLA ZOSTER RESULT INTERPRETATIONS: <=0.8 Al Nonreactive: Presumed non- immune to VZV 0.9-1.0Al Equivocal >=1.1 Al Reactive: Presumed immune to VZV VVJTA-2-[id number] 13:11:00 Test Item Value Reference Range Interpretation Comments ALPHA-1 ANTITRYPSIN (BEAKER) 155.30 mg/dL 90.00-200.00 (test code = 502) HEMOGLOBIN [id number] 13:08:00 Test Item Value Reference Range Interpretation Comments HEMOGLOBIN A1C (BEAKER) (test code = 6.4 % 4.3-6.1 H 368) HEPATITIS A ANTIBODY, [id number] 12:51:00 Test Item Value Reference Range Interpretation Comments HEPATITIS A IGG ANTIBODY (BEAKER) Reactive Nonreactive A (test code = 2797) HEPATITIS C [id number] 12:51:00 Test Item Value Reference Range Interpretation Comments HEPATITIS C ANTIBODY (BEAKER) (test Reactive Nonreactive A code = 367) [id number] 12:48:00 Test Item Value Reference Range Interpretation Comments PROSTATE SPECIFIC ANTIGEN (BEAKER) 0.4 ng/mL 0.0-4.0 (test code = 844) HIV-1 ANTIGEN WITH HIV-1/2 [id number] 12:48:00 Test Item Value Reference Range Interpretation Comments HIV-1 ANTIGEN WITH HIV 1\\T\\2 Nonreactive Nonreactive ANTIBODY (2) (BEAKER) (test code = 2586) VITAMIN D, 13-[id number] 12:46:00 Test Item Value Reference Range Interpretation Comments VITAMIN D 25-OH (BEAKER) (test code 7.7 ng/mL 6.6-49.9 = 2764) Effective 03/08/2017: Reference Range ChangeNew: 6.6-49.9 ng/mL Previous: 13.0- 47.8 ng/mLRecommendedVitamin D Target Range: 30.0-40.0 ng/mLURINALYSIS W/ [id number] 11:55:00 Test Item Value Reference Range Interpretation [...] 1579) 2 /LPF SOURCE(BEAKER) (test code = 7813) CRYPTOCOCCAL [id number] 11:10:00 Test Item Value Reference Range Interpretation Comments CRYPTOCOCCAL ANTIGEN, SERUM Negative Negative, Interference (BEAKER) (test code = 1828) [id number] 10:59:00 Test Item Value Reference Range Interpretation Comments THYROID STIMULATING HORMONE 2.10 uIU/mL 0.35-4.94 (BEAKER) (test code = 772) [id number] 10:59:00 Test Item Value Reference Range Interpretation Comments FERRITIN (BEAKER) (test code = 361) 69 ng/mL 5-275 [id number] 10:51:00 Test Item Value Reference Range Interpretation Comments RPR SCREEN (BEAKER) (test code = Nonreactive Nonreactive 420) [id number] 10:49:00 Test Item Value Reference Range Interpretation Comments TRANSFERRIN (BEAKER) (test code = 197 mg/dL 174-382 541) Specimen slightly [id number] 10:45:00 Test Item Value Reference Range Interpretation Comments MAGNESIUM (BEAKER) (test code = 1.5 mg/dL 1.6-2.6 L 627) [id number] 10:45:00 Test Item Value Reference Range Interpretation Comments PHOSPHORUS (BEAKER) (test code = 3.6 mg/dL 2.3-4.7 604) URIC [id number] 10:45:00 Test Item Value Reference Range Interpretation Comments URIC ACID (BEAKER) (test code = 4.8 mg/dL 2.6-7.2 773) Specimen slightly ictericCOMPREHENSIVE METABOLIC [id number] 10:45:00 Test Item Value Reference Range Interpretation [...] FOR DIALYSIS PATIEN TS. Specimen slightly ictericLIPID [id number] 10:45:00 Test Item Value Reference Range Interpretation [...] 160-189 Very High >=190 Specimen slightly ictericBILIRUBIN, [id number] 10:45:00 Test Item Value Reference Range Interpretation Comments BILIRUBIN DIRECT (BEAKER) (test 1.6 mg/dL 0.1-0.5 H code = 706) GAMMA GLUTAMYL TRANSFERASE (GGT)2018-12-20 10:45:00 Test Item Value Reference Range Interpretation Comments GAMMA GLUTAMYL TRANSFERASE (BEAKER) 33 U/L 9-64 (test code = 364) Specimen slightly [id number] 10:42:00 Test Item Value Reference Range Interpretation Comments PARTIAL THROMBOPLASTIN TIME 37.9 seconds 22.5-36.0 H (BEAKER) (test code = 760) PROTHROMBIN [id number] 10:36:00 Test Item Value Reference Range Interpretation [...] is 2.5-3.5 for patients wiht mechanical heart valves.[id number] 10:36:00 Test Item Value Reference Range Interpretation Comments ETHANOL (BEAKER) (test code = 400) < mg/dL <=10 [id number] 10:36:00 Test Item Value Reference Range Interpretation Comments FIBRINOGEN LEVEL (BEAKER) (test 207 mg/dl 225-434 L code = 658) BLOOD GAS, [id number] 10:35:00 Test Item Value Reference Range Interpretation [...] 21.0 % CBC W/PLT COUNT & AUTO [id number] 10:25:00 Test Item Value Reference Range Interpretation [...] PERCENT (BEAKER) (test code = 2801) CALCIUM, [id number] 10:20:00 Test Item Value Reference Range Interpretation Comments CALCIUM IONIZED (BEAKER) (test 1.05 mmol/L 1.12-1.27 L code = 698) PH, BLOOD (BEAKER) (test code = 7.41 1810) RAD, MANDIBLE, MIN 4 [id number] 16:56:00REFERRING : CHERELLE SALVADOR Reason for Exam:->pretransplant liver evaluationFINAL REPORT TECHNIQUE: Minimum four views of the mandible. INDICATION: pretransplant liver evaluation. COMPARISON: None. FINDINGS:No fracture or dislocation.No periapical lucencies.Caries of a maxillary molar, side indeterminate.Mild degenerative disc changes at C4-C5, C5-C6, andC6-C7. IMPRESSION: No periapical lucency. Caries of a maxillary molar, side indeterminate. Signed: Isaías Alvarezort Verified Date/Time: 12/19/2018 16:56:31 Reading Location: [address] Radiology Reading Room RAD, CHEST, 2 [id number] 15:51:00REFERRING : CHERELLE SALVADOR Reason for Exam:- >pretransplant liver evaluationFINAL [...] MDReport Verified Date/Time: 12/19/2018 15:51:17 [facility], ABDOMEN, [id number] 14:51:00REFERRING CARO LEROYTFINAL REPORT TECHNIQUE: MRI of the abdomen [...] splenomegaly, and large esophageal varices. Signed: Isaías Alvarez MDReport Verified Date/Time: 12/19/2018 14:51:24 Reading Location: [address] Radiology Reading Room ETHANOL 2018-12-06 11:12:00 Test Item Value Reference Range Interpretation Comments ETHANOL (BEAKER) (test code = 400) < mg/dL <=10 BASIC METABOLIC [id number] 10:56:00 Test Item Value Reference Range Interpretation [...] DIALYSIS PATIEN TS. Specimen moderately ictericHEPATIC FUNCTION [id number] 10:56:00 Test Item Value Reference Range Interpretation [...] 27 U/L 6-55 347) Specimen moderately ictericPROTHROMBIN TIME/[id number] 10:40:00 Test Item Value Reference Range Interpretation [...] mechanical heart valves.CBC W/PLT COUNT & AUTO [id number] 10:38:00 Test Item Value Reference Range Interpretation [...] PERCENT (BEAKER) (test code = 2801) BLOOD [id number] 08:00:00 Test Item Value Reference Range Interpretation Comments CULTURE (BEAKER) (test No growth in 5 days code = 1095) BLOOD [id number] 08:00:00 Test Item Value Reference Range Interpretation Comments CULTURE (BEAKER) (test No growth in 5 days code = 1095) BODY FLUID CULTURE + GRAM [id number] 12:20:00 Test Item Value Reference Range Interpretation Comments CULTURE (BEAKER) (test code No growth = 1095) GRAM STAIN RESULT (BEAKER) 1+ WBCs (test code = 1123) GRAM STAIN RESULT (BEAKER) No organisms seen (test code = 17997) HEPATITIS C PCR, [id number] 08:32:00 Test Item Value Reference Range Interpretation Comments HCV RESULT COMPONENT HCV RNA not detected HCV RNA not detected (BEAKER) (test code = 2699) This test uses a Real-Time Polymerase Chain Reaction (RT-PCR) methodology and was performed using [employer] Ampliprep/KHOA TaqMan HCV test kit version 2.0 ([employer]).Reportable range for this assay is 15 - 100,000,000 IU per mL (1.18 - 8.00 Log IU/mL).POCT-GLUCOSE [id number] 08:09:00 Test Item Value Reference Range Interpretation Comments POC-GLUCOSE METER 117 mg/dL 70-110 H TESTED AT [facility] 6720 ([facility]) (test code = NICOLE Arita [facility] 1538) [address] CALCIUM, [id number] 05:54:00 Test Item Value Reference Range Interpretation Comments CALCIUM IONIZED (BEAKER) (test 1.01 mmol/L 1.12-1.27 L code = 698) PH, BLOOD (BEAKER) (test code = 7.45 1810) COMPREHENSIVE METABOLIC [id number] 05:07:00 Test Item Value Reference Range Interpretation [...] APPLICABLE FOR DIALYSIS PATIEN TS. Specimen slightly [id number] 05:06:00 Test Item Value Reference Range Interpretation Comments PHOSPHORUS (BEAKER) (test code = 3.3 mg/dL 2.3-4.7 604) [id number] 05:06:00 Test Item Value Reference Range Interpretation Comments MAGNESIUM (BEAKER) (test code = 1.5 mg/dL 1.6-2.6 L 627) CBC W/PLT COUNT & AUTO [id number] 04:43:00 Test Item Value Reference Range Interpretation [...] PERCENT (BEAKER) (test code = 2801) POCT-GLUCOSE [id number] 21:35:00 Test Item Value Reference Range Interpretation Comments POC-GLUCOSE METER 154 mg/dL 70-110 H TESTED AT [place] [address] (BEAKER) (test code = NICOLE Arita [facility] 1538) [address] POCT-GLUCOSE [id number] 17:21:00 Test Item Value Reference Range Interpretation Comments POC-GLUCOSE METER 138 mg/dL 70-110 H TESTED AT [place] [address] (BEAKER) (test code = NICOLE Arita [facility] 1538) [address] POCT-GLUCOSE [id number] 13:27:00 Test Item Value Reference Range Interpretation Comments POC-GLUCOSE METER 166 mg/dL 70-110 H TESTED AT [place] [address] (BEAKER) (test code = NICOLE Arita [facility] 1538) [address] CBC W/PLT COUNT & AUTO [id number] 12:00:00 Test Item Value Reference Range Interpretation [...] 3438) Received comment: User comments: Slide comments:POCT-GLUCOSE [id number] 11:52:00 Test Item Value Reference Range Interpretation Comments POC-GLUCOSE METER 180 mg/dL 70-110 H TESTED AT [facility] 6720 (BEAKER) (test code = NICOLE Arita [facility] 1538) [address] POCT-GLUCOSE [id number] 08:09:00 Test Item Value Reference Range Interpretation Comments POC-GLUCOSE METER 115 mg/dL 70-110 H TESTED AT [facility] 6720 (BEAKER) (test code = NICOLE Arita [facility] 1538) [address] COMPREHENSIVE METABOLIC [id number] 05:59:00 Test Item Value Reference Range Interpretation [...] APPLICABLE FOR DIALYSIS PATIEN TS. Specimen slightly [id number] 05:57:00 Test Item Value Reference Range Interpretation Comments MAGNESIUM (BEAKER) (test code = 1.6 mg/dL 1.6-2.6 627) POCT-GLUCOSE [id number] 22:30:00 Test Item Value Reference Range Interpretation Comments POC-GLUCOSE METER 186 mg/dL 70-110 H TESTED AT [facility] 6720 ([facility]) (test code = NICOLE Arita [facility] 1538) [id number] POCT-GLUCOSE [id number] 18:33:00 Test Item Value Reference Range Interpretation Comments POC-GLUCOSE METER 117 mg/dL 70-110 H TESTED AT [facility] 6720 ([facility] [facility]) (test code = ABELWV Juan J [place] 1538) [address] U/S, [id number] 17:34:00REFERRING : CHERELLE SALVADOR Please give 25g [...] 2% lidocaine anesthesia was administered. A 5 Afghan catheter was advanced into the peritoneal cavityand 1300 cc of addison fluid was removed. The catheter was removed without immediate complication. Samples left with interstitial sent to the lab for analysis. IMPRESSION:Uncomplicated ultrasound-guided paracentesis with 1300 cc fluid removed. Signed: Mauricio Cullen MDReport Verified Date/Time: 10/29/2018 17:34:00 Reading Location: [address] Ultrasound Reading Room VANCOMYCIN LEVEL, [id number] 17:22:00 Test Item Value Reference Range Interpretation Comments VANCOMYCIN TROUGH (BEAKER) (test 7.3 ug/mL 10.0-20.0 L code = 522) CBC W/PLT COUNT & AUTO [id number] 15:00:00 Test Item Value Reference Range Interpretation [...] = 2801) BODY FLUID CELL COUNT WITH [id number] 13:45:00 Test Item Value Reference Range Interpretation [...] Tube (test code = 2873) RESPIRATORY PANEL [id number] 12:27:00 Test Item Value Reference Range Interpretation [...] decisions. This sample was tested at the [facility] Molecular Diagnostics Laboratory using the RingerscommunicationsArray Respiratory Panel. It is FDA cleared and has been verified and approved by the [facility] Molecular Diagnostics Laboratory for clinical use on nasopharyngeal swab specimens.The performance of the FilmArrayRP has not been established in individuals who received influenza vaccine. Recent administration of a nasal influenza vaccine may cause false positive results for Influenza A and/orInfluenza B.POCT-GLUCOSE [id number] 12:16:00 Test Item Value Reference Range Interpretation Comments POC-GLUCOSE METER 196 mg/dL 70-110 H TESTED AT [facility] 6720 ([facility]) (test code = NICOLE Ariat [facility] 1538) [address] RESPIRATORY PANEL [id number] 10:59:00 Test Item Value Reference Range Interpretation [...] decisions. This sample was tested at the [facility] Molecular Diagnostics Laboratory using the Nveloped FilmArray Respiratory Panel. It is FDA cleared and has been verified and approved by the [facility] Molecular Diagnostics Laboratory for clinical use on nasopharyngeal swab specimens.The performance of the FilmArrayRP has not been established in individuals who received influenza vaccine. Recent administration of a nasal influenza vaccine may cause false positive results for Influenza A and/orInfluenza B.POCT-GLUCOSE [id number] 08:15:00 Test Item Value Reference Range Interpretation Comments POC-GLUCOSE METER 184 mg/dL 70-110 H TESTED AT [facility] 1450 ([facility]) (test code = NICOLE Juan J [facility] 1538) [address] CBC W/PLT COUNT & AUTO [id number] 07:49:00 Test Item Value Reference Range Interpretation Comments WHITE BLOOD CELL COUNT ([facility]) 7.2 K/ L 3.5-10.5 (test code = 775) RED BLOOD CELL COUNT ([facility]) 2.66 M/ L 4.63-6.08 L (test code = 761) HEMOGLOBIN ([facility]) (test code = 8.9 GM/DL 13.7-17.5 L [...] APPLICABLE FOR DIALYSIS PATIEN TS. Specimen moderately [id number] 04:31:00 Test Item Value Reference Range Interpretation Comments MAGNESIUM ([facility]) (test code = 1.9 mg/dL 1.6-2.6 627) LACTIC ACID, [id number] 04:18:00 Test Item Value Reference Range Interpretation Comments LACTATE BLOOD VENOUS (2) ([facility]) 1.3 mmol/L 0.5-2.2 (test code = 2872) Specimen moderately ictericPOCT-GLUCOSE [id number] 18:00:00 Test Item Value Reference Range Interpretation Comments POC-GLUCOSE METER 121 mg/dL 70-110 H TESTED AT [facility] 6720 ([facility]) (test code = NICOLE Arita [facility] 1538) [address] [id number] 12:39:00 Test Item Value Reference Range Interpretation Comments PROCALCITONIN ([facility]) (test code 4.50 ng/mL <0.05 H = 3036) SEPSIS RISK (ng/mL)Low: 0.05-0.50Intermediate: 0.51-2.00High: >=2.01POCT- GLUCOSE [id number] 12:20:00 Test Item Value Reference Range Interpretation Comments POC-GLUCOSE METER 148 mg/dL 70-110 H TESTED AT [facility] 67 ([facility]) (test code = NICOLE Arita [facility] 1538) [address] LEGIONELLA ANTIGEN, [id number] 12:13:00 Test Item Value Reference Range Interpretation Comments L. PNEUMOPHILA Negative - see Negative fo r L. SEROGP 1 UR AG comment pneumophila ([facility]) (test code serogrou p 1 antigen, = 1156) suggesting no r ecent or current infe ction with this serog roup. Legionellosis c annot be ruled out si nce other serogroup s and species may cau se disease. STREP PNEUMONIAE [id number] 12:13:00 Test Item Value Reference Range Interpretation Comments STREP PNEUMONIAE Presumptive negative Presumptive negative ANTIGEN ([facility]) for pneumococcal for pneumococcal (test code = 1615) pneumonia - see pneumonia - see comment commen Presumptive negative for pneumococcal pneumonia, suggesting no current or recent pneumococcal infection. Infection due to S. pneumoniae cannot be ruled out since the antigen present in the sample may be below the detection limit of the test. RAPID INFLUENZA A&B [id number] 12:11:00 Test Item Value Reference Range Interpretation Comments RAPID INFLUENZA A AG (BEAKER) Negative Negative, Inconclusive (test code = 1622) RAPID INFLUENZA B AG (BEAKER) Negative Negative, Inconclusive (test code = 1623) LACTIC ACID, [id number] 10:51:00 Test Item Value Reference Range Interpretation Comments LACTATE BLOOD VENOUS (2) (BEAKER) 3.0 mmol/L 0.5-2.2 H (test code = 2872) Specimen moderately ictericU/S, ABDOMINAL, [id number] 07:19:00REFERRING MD: CHERELLE SALVADOR Please perform with [...] flow direction. 4. Minimal ascites. Signed: Curtis Almanzaepdaron Verified Date/Time: 10/28/2018 07:19:25 Reading Location: [address] Transitional Reading Room RAPID DRUG SCREEN, [id number] 07:07:00 Test Item Value Reference Range Interpretation [...] situations. Chain of custody not maintained. Some mdmd-kow-aphpecw medications, as well as adulterants, may cause inaccurate results. Clinical correlation should be applied. A more comprehensive drug screen or confirmation of a detected drug may be performed upon request.CT, BRAIN, WITHOUT [id number] 06:42:00REFERRJB GOMEZ: CHERELLE LEROYTFINAL REPORT CT, BRAIN, WITHOUT CONTRAST [...] Verified Date/Time: 10/28/2018 06:42:47 VITAMIN B12 AND [id number] 06:21:00 Test Item Value Reference Range Interpretation Comments VITAMIN B12 (BEAKER) (test code = 719 pg/mL 213-816 774) FOLATE (BEAKER) (test code = 362) 13.7 ng/mL >=7.0 TROPONIN [id number] 06:05:00 Test Item Value Reference Range Interpretation [...] H (test code = 2590) COMPREHENSIVE METABOLIC [id number] 05:44:00 Test Item Value Reference Range Interpretation [...] APPLICABLE FOR DIALYSIS PATIEN TS. Specimen moderately [id number] 05:38:00 Test Item Value Reference Range Interpretation Comments MAGNESIUM (BEAKER) (test code = 2.3 mg/dL 1.6-2.6 627) LACTIC ACID, [id number] 05:32:00 Test Item Value Reference Range Interpretation Comments LACTATE BLOOD VENOUS 4.1 mmol/L 0.5-2.2 H Specime n slightly (2) (BEAKER) (test hemolyzed code = 2872) Specimen moderately ictericTROPONIN [id number] 02:28:00 Test Item Value Reference Range Interpretation [...] disease, and persistent tachyarrhythmia.RAD, ABDOMEN/KUB, 1 VIEW [id number] 02:04:00REFERRING MD: CHERELLE SALVADOR Reason for exam:->NG [...] Navarrete MDReport Verified Date/Time: 10/28/2018 02:04:20 HROMBIN [id number] 01:58:00 Test Item Value Reference Range Interpretation [...] mechanical heart valves.CBC W/PLT COUNT & AUTO [id number] 01:45:00 Test Item Value Reference Range Interpretation [...] User comments: Slide comments:URINALYSIS W/ REFLEX URINE [id number] 01:36:00 Test Item Value Reference Range Interpretation [...] SOURCE(BEAKER) (test code = 2795) COMPREHENSIVE METABOLIC [id number] 01:16:00 Test Item Value Reference Range Interpretation [...] APPLICABLE FOR DIALYSIS PATIEN TS. Specimen moderately [id number] 01:15:00 Test Item Value Reference Range Interpretation Comments AMMONIA (BEAKER) (test code = 348) 69 mol/L 18-72 LACTIC ACID, [id number] 01:08:00 Test Item Value Reference Range Interpretation Comments LACTATE BLOOD VENOUS (2) (BEAKER) 3.2 mmol/L 0.5-2.2 H (test code = 6444) Specimen moderately [id number] 01:08:00 Test Item Value Reference Range Interpretation Comments MAGNESIUM (BEAKER) (test code = 1.1 mg/dL 1.6-2.6 L 627) RAD, CHEST, 1 VIEW, NON [id number] 00:52:00REFERRING : CHERELLE SALVADOR Reason for exam:->sepsisShould [...] of an acute osseous abnormality. Signed: Alex Bahena MDReport Verified Date/Time: 10/28/2018 00:52:42 Reading Location: [address] Reading Room ACTIN (SMOOTH MUSCLE) ANTIBODY, [id number] 08:28:00 Test Item Value Reference Range Interpretation Comments SCAN RESULT (test code = 1252754) [id number] 08:27:00 Test Item Value Reference Range Interpretation Comments SCAN RESULT (test code = 4213085) NILS TITER AND [id number] 09:55:00 Test Item Value Reference Range Interpretation Comments NILS TITER (BEAKER) (test code = :160 1541) NILS PATTERN (BEAKER) (test code = Speckled 1781) ANTI-NUCLEAR ANTIBODY (NILS)2018-10-05 09:54:00 Test Item Value Reference Range Interpretation Comments ANTI-NUCLEAR ANTIBODY (NILS) (BEAKER) Positive Negative A (test code = 418) Test performed by IFA method.[id number] 10:54:00 Test Item Value Reference Range Interpretation Comments FERRITIN (BEAKER) (test code = 361) 218 ng/mL 5-275 HEPATITIS A ANTIBODY, [id number] 10:18:00 Test Item Value Reference Range Interpretation Comments HEPATITIS A IGG ANTIBODY (BEAKER) Reactive Nonreactive A (test code = 2797) ALPHA FETOPROTEIN (AFP), TUMOR [id number] 10:14:00 Test Item Value Reference Range Interpretation Comments ALPHA-FETOPROTEIN (BEAKER) (test 3.5 ng/mL <10.0 code = 1094) HEPATITIS A ANTIBODY, [id number] 10:14:00 Test Item Value Reference Range Interpretation Comments HEPATITIS A IGM ANTIBODY (BEAKER) Nonreactive Nonreactive (test code = 498) HEPATITIS B CORE ANTIBODY, [id number] 10:14:00 Test Item Value Reference Range Interpretation Comments HEPATITIS B CORE TOTAL ANTIBODY Nonreactive Nonreactive (BEAKER) (test code = 497) HEPATITIS B SURFACE [id number] 09:42:00 Test Item Value Reference Range Interpretation Comments HEPATITIS B SURFACE ANTIBODY < mIU/mL <8.0 (BEAKER) (test code = 647) HEPATITIS B SURFACE [id number] 09:36:00 Test Item Value Reference Range Interpretation [...] 41 % 20-55 (test code = 2590) [id number] 09:14:00 Test Item Value Reference Range Interpretation Comments ALPHA-1 ANTITRYPSIN (BEAKER) 159.30 mg/dL 90.00-200.00 (test code = 502) COMPREHENSIVE METABOLIC [id number] 09:10:00 Test Item Value Reference Range Interpretation [...] FOR DIALYSIS PATIEN TS. Specimen slightly ictericBILIRUBIN, [id number] 09:10:00 Test Item Value Reference Range Interpretation Comments BILIRUBIN DIRECT (BEAKER) (test 1.4 mg/dL 0.1-0.5 H code = 706) PROTHROMBIN [id number] 08:38:00 Test Item Value Reference Range Interpretation [...] mechanical heart valves.CBC W/PLT COUNT & AUTO [id number] 08:35:00 Test Item Value Reference Range Interpretation [...]
[2023-01-17] MEDS ORDERED: NA CHLORIDE 0.9% 1,000 ML ONE (16:31)
[2023-01-17 16:33] LABS: Absolute Lymphocytes (CBC) 1.4 K/uL (0.7-4.9); Hematocrit 38.9 % (39.6-49.0); Lymphocytes % 15.3 % (15.3-44.8); MCV 63.6 fL (80-100); MPV 8.7 fL (7.6-11.3); Platelets 157 thou/uL (152-406); RBC Red Blood Cell Count 6.12 M/uL (4.33-5.43)
[2023-01-17 16:39] LABS: Potassium 4.3 mEq/L (3.5-5.1)
[2023-01-17] MEDS ORDERED: INSULIN -REGULAR HUMAN 50 UNIT/0.5 ML ML ONE (17:41)
--- NOTE | 2023-01-17 18:10 | ER ---
Nurse's Notes [facility] Name: Tonny Cardona Age: 67 yrs Sex: Male : 1955 Arrival Date: 01/17/2023 Time: 15:50 Bed 6 Private MD: Diagnosis: Hyperglycemia, unspecified Presentation: 01/17 16:00 Chief complaint: Patient states: reports 420 blood sugar readings at 1500. Pt reports rs5 "I feel fine.". Coronavirus screen: At this time, the client does not indicate any symptoms associated with coronavirus-19. Ebola Screen: Patient denies exposure to infectious person. Patient denies travel to an Ebola-affected area in the 21 days before illness onset. Initial Sepsis Screen: Does the patient meet any 2 criteria? HR > 90 bpm. No. Patient's initial sepsis screen is negative. Does the patient have a suspected source of infection? No. Patient's initial sepsis screen is negative. Risk Assessment: Do you want to hurt yourself or someone else? Patient reports no desire to harm self or others. Onset of symptoms was January 17, 2023. 16:00 Method Of Arrival: Ambulatory rs5 16:06 Acuity: FAIZA 3 rs5 Historical: - Allergies: 16:04 Lorazepam; rs5 - PMHx: 16:04 Cirrhosis; psoriasis; COPD; Hypertension; rs5 16:05 Diabetes mellitus; rs5 - PSHx: 16:04 Liver transplant (17 August 2022); hernia repair; rs5 - Immunization history:: Adult Immunizations up to date. - Social history:: Smoking status: Patient/guardian denies using tobacco, the patient reports quitting approximately 2 years ago. Screenin:33 [facility] ED Fall Risk Assessment (Adult) History of falling in the last 3 months, ph including since admission No falls in past 3 months (0 pts) Confusion or Disorientation No (0 pts) Intoxicated or Sedated No (0 pts) Impaired Gait No (0 pts) Mobility Assist Device Used No (0 pt) Altered Elimination No (0 pt) Score/Fall Risk Level 0 - 2 = Low Risk Oriented to surroundings, Maintained a safe environment, Hourly rounding (assess needs \\T\\ fall precautionary measures) done. Abuse screen: Denies threats or abuse. Denies injuries from another. Nutritional screening: No deficits noted. Tuberculosis screening: No symptoms or risk factors identified. Assessment: 17:32 General: Appears in no apparent distress. comfortable, Behavior is calm, cooperative, ph appropriate for age, Denies fever, feeling ill. Pain: Denies pain. Neuro: Level of Consciousness is awake, alert, obeys commands, Oriented to person, place, time, situation. Cardiovascular: Capillary refill < 3 seconds in bilateral fingers Patient's skin is warm and dry. GI: No signs and/or symptoms were reported involving the gastrointestinal system. : No signs and/or symptoms were reported regarding the genitourinary system. Derm: Rash noted that is red, on right arm and left arm. Musculoskeletal: Circulation, motion, and sensation intact. Range of motion: intact in all extremities. Vital Signs: 16:00 BP 152 / 90; Pulse 95; Resp 17; Temp 98.5; Pulse Ox 99% ; rs5 17:34 BP 142 / 78; Pulse 87; Resp 18; Pulse Ox 98% on R/A; ph ED Course: 15:56 Patient arrived in ED. kj1 16:02 Radha Reyna FNP-C is PHCP. kb 16:02 Robert Lyles DO is Attending Physician. kb 16:06 Triage completed. rs5 16:17 Livier Pizarro, RN is Primary Nurse. ph 16:28 Basic Metabolic Panel Sent. bc6 16:28 CBC with Diff Sent. bc6 16:28 Missed attempt(s): 22 gauge in right antecubital area. bc6 16:29 Missed attempt(s): 22 gauge in right forearm. bc6 17:33 Patient has correct armband on for positive identification. Bed in low position. Call ph light in reach. Side rails up X 1. Pulse ox on. NIBP on. 17:34 Arm band placed on. ph 18:19 No provider procedures requiring assistance completed. IV discontinued, intact, ph bleeding controlled, No redness/swelling at site. Pressure dressing applied. Administered Medications: 16:37 Drug: NS 0.9% IV 1000 ml Route: IV; Rate: 1000 ml; Site: right wrist; ph 17:32 Follow up: Response: No adverse reaction; IV Status: Completed infusion; IV Intake: ph 1000ml 17:31 Drug: Insulin Regular Human Sub-Q 5 units {Co-Signature: ld1 (Lyles, Luisa RN).} Route: ph Sub-Q; Site: right upper abdomen; 18:05 Follow up: Response: No adverse reaction ph Medication: 17:34 VIS not applicable for this client. ph Point of Care Testing: Blood Glucose: 16:04 Blood Glucose: 378 mg/dL; rs5 Ranges: Intake: 17:32 IV: 1000ml; Total: 1000ml. ph Outcome: 18:10 Discharge ordered by . leonardo 18:19 Discharged to home ambulatory. ph 18:19 Condition: good 18:19 Discharge instructions given to patient, Instructed on discharge instructions, follow up and referral plans. Demonstrated understanding of instructions, follow-up care, Prescriptions given X 18:20 Patient left the ED. ph Signatures: Radha Reyna, MISTI-C INTERLIBRARY LOAN SPECIALIST-Livier Liao RN RN Cleo Reyna kj1 Mathew Ayon RN RN rs5 Rosangela Gomez6 Luisa Lyles RN ld1 Corrections: (The following items were deleted from the chart) 16:06 16:04 PMHx: Diabetes - NIDDM; rs5 rs5 16:17 16:17 Blood Glucose: Blood Glucose Ycwivtu=254 mg/dL. rs5 rs5
--- NOTE | 2023-01-17 18:10 | EDPHYS ---
Physician Documentation [facility] Name: Tonny Cardona Age: 67 yrs Sex: Male : 1955 Arrival Date: 01/17/2023 Time: 15:50 Bed 6 Private MD: ED Physician Robert Lyles HPI: 01/17 16:07 This 67 yrs old Male presents to ER via Ambulatory with complaints of High kb Blood Sugar. 16:07 The patient or guardian reports hyperglycemia, that was potentially precipitated by no kb particular event. Onset: The symptoms/episode began/occurred this morning. Associated signs and symptoms: Pertinent positives: None. Pertinent negatives: diarrhea, nausea, vomiting. Current symptoms: In the emergency department the patient's symptoms are unchanged from the initial presentation. The patient has not experienced similar symptoms in the past. The patient has not recently seen a physician. Pt reports his blood sugar was 200 this morning, prior to breakfast. States it is normally 120-150. 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 Denies n/v, any illness. States he feels fine and is not sure why his sugar is high. . Historical: - Allergies: 16:04 Lorazepam; rs5 - PMHx: 16:04 Cirrhosis; psoriasis; COPD; Hypertension; rs5 16:05 Diabetes mellitus; rs5 - PSHx: 16:04 Liver transplant (17 August 2022); hernia repair; rs5 - Immunization history:: Adult Immunizations up to date. - Social history:: Smoking status: Patient/guardian denies using tobacco, the patient reports quitting approximately 2 years ago. ROS: 16:10 Constitutional: Negative for fever, chills, and weight loss. kb 16:10 All other systems are negative. Exam: 16:10 Constitutional: This is a well developed, well nourished patient who is awake, alert, kb and in no acute distress. Head/Face: Normocephalic, atraumatic. ENT: Moist Mucous membranes Cardiovascular: Regular rate and rhythm with a normal S1 and S2. No gallops, murmurs, or rubs. No pulse deficits. Respiratory: Respirations even and unlabored. No increased work of breathing. Talking in full sentences Abdomen/GI: Soft, non-tender. No distention Skin: Warm, dry with normal turgor. Normal color. MS/ Extremity: Pulses equal, no cyanosis. Neurovascular intact. Full, normal range of motion. Neuro: Awake and alert, GCS 15, oriented to person, place, time, and situation. Moves all extremities. Normal gait. Vital Signs: 16:00 BP 152 / 90; Pulse 95; Resp 17; Temp 98.5; Pulse Ox 99% ; rs5 17:34 BP 142 / 78; Pulse 87; Resp 18; Pulse Ox 98% on R/A; ph MDM: 16:02 Patient medically screened. kb 16:10 Differential diagnosis: DKA, hyperglycemia. Data reviewed: vital signs, nurses notes. kb 17:46 Counseling: I had a detailed discussion with the patient and/or guardian regarding the kb historical points, exam findings, and any diagnostic results supporting the discharge/admit diagnosis, lab results, the need for outpatient follow up, a family practitioner, to return to the emergency department if symptoms worsen or persist or if there are any questions or concerns that arise at home. 01/17 16:05 Order name: CBC with Diff; Complete Time: 17:03 kb 01/17 16:05 Order name: Basic Metabolic Panel; Complete Time: 16:43 kb 01/17 16:15 Order name: Glucose, Ancillary Testing; Complete Time: 16:16 EDMS 01/17 18:14 Order name: Glucose, Ancillary Testing EDMS 01/17 16:05 Order name: IV Start; Complete Time: 16:37 kb 01/17 17:47 Order name: Blood Glucose Level; Complete Time: 18:05 kb Administered Medications: 16:37 Drug: NS 0.9% IV 1000 ml Route: IV; Rate: 1000 ml; Site: right wrist; ph 17:32 Follow up: Response: No adverse reaction; IV Status: Completed infusion; IV Intake: ph 1000ml 17:31 Drug: Insulin Regular Human Sub-Q 5 units {Co-Signature: ld1 (Luisa Lyles RN).} Route: ph Sub-Q; Site: right upper abdomen; 18:05 Follow up: Response: No adverse reaction ph Point of Care Testing: Blood Glucose: 16:04 Blood Glucose: 378 mg/dL; rs5 Ranges: Critical Glucose Levels:Adult <50 mg/dl or >400 mg/dl <40 mg/dl or >180 mg/dl Disposition: 16:52 Co-signature as Attending Physician, Robert Lyles DO I was immediately available on-site ms3 in the Emergency Department for consultation in the care of the patient. Disposition Summary: 01/17/23 18:10 Discharge Ordered Location: Home kb Condition: Stable kb Diagnosis - Hyperglycemia, unspecified kb Followup: kb - With: Emergency Department - When: As needed - Reason: Worsening of condition Followup: kb - With: Private Physician - When: 2 - 3 days - Reason: Recheck today's complaints, Continuance of care, Re-evaluation by your physician Discharge Instructions: - Discharge Summary Sheet kb - Hyperglycemia, [id number]-[id number] kb Forms: - Medication Reconciliation Form kb - Thank You Letter kb - Antibiotic Education kb - Prescription Opioid Use kb - Patient Portal Instructions kb - Leadership Thank You Letter kb Signatures: Dispatcher [employer] EDRadha Rg, STRUCTURAL WELDER-C STRUCTURAL WELDER-Livier Liao RN RN Robert Lyles DO DO ms3 Mathew Ayon RN RN rs5 Luisa Lyles RN ld1 Corrections: (The following items were deleted from the chart) 16:06 16:04 PMHx: Diabetes - NIDDM; rs5 rs5 16:16 16:07 Pt reports his blood sugar was 200 this morning, prior to breakfast. States it is kb normally 120-150. 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 Denies n/v, any illness. States he feels fine and is not sure why his sugar is high. kb
[2023-01-17 18:48] VITALS: TEMP 98.5
[2023-01-17 18:49] VITALS: BP 142/78; O2SAT 98
== END 2023-01-17 18:20 | disposition home or self-care (01) ==
LOC: ER 15:50
DX: E11.65 Type 2 diabetes mellitus with hyperglycemia (principal); I10 Essential (primary) hypertension; J44.9 Chronic obstructive pulmonary disease, unspecified; Z88.5 Allergy status to narcotic agent
CPT/HCPCS: 85025; 80048; 36415; 82947 ×2; 96360; 96372; 99284; J1815; J7030

== ENCOUNTER 2023-02-17 15:29 | Emergency (ER) | payer OTHER, MEDICARE ==
[2023-02-17] MEDS ORDERED: NA CHLORIDE 0.9% 500 ML ONE (15:54)
--- OUTSIDE RECORDS SUMMARY | 2023-02-17 15:55 | XMS REPORT | Continuity of Care Document ---
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 of tablet 00:00: mouth daily. Medical Branch spironolact 2020-0 Yes [id number] 25mg Take 1 [facility] one 25 mg 5-19 tablet by ity o f tablet 00:00: mouth (two) Medical times Branch daily. carvediloL 2020-0 Yes [id number] 3.125mg Take 1 [facility] 3.125 mg 5-19 tablet by ity of tablet 00:00: mouth (two) Medical times Branch daily with meals. Pitavastati 0 Yes [id number] 2mg Take 2 mg [facility] n (LIVALO) 5-19 by mouth ity o f 2 mg Tab 00:00: daily. Medical Branch pantoprazol 2020-0 Yes [id number] 40mg Take 1 [facility] e 40 mg EC 5-19 tablet by ity of tablet 00:00: mouth daily. Medical Branch metFORMIN 2020-0 Yes [id number] 500mg Take 1 [facility] 500 mg 5-19 tablet by ity of tablet 00:00: mouth (two) Medical times Branch daily with meals. Blood-Gluco 2020-0 Yes [id number] Use BID, [facility] se Meter 5-19 DX E11.9 ity of (ACCU-CHEK 00:00: ([facility] GUIDE 00 upon [facility] GLUCOSE insurance Branch METER) Misc approval) ACCU-CHEK GUIDE blood sugar 2020-0 Yes [id number] Use BID, [facility] diagnostic 5-19 DX E11.9 ity o f (ACCU-CHEK 00:00: ([employer] GUIDE TEST 00 upon Medical STRIPS) insurance Branch strip approval) rifAXIMin 2020- Yes [id number] 550mg Take 1 [facility] 550 mg 5-19 tablet by ity of tablet 00:00: mouth (two) Medical times Branch daily. furosemide 2020-0 Yes [id number] 40mg Take 1 [facility] 40 mg 5-19 tablet by ity of tablet 00:00: mouth every Medical morning Branch and evening. hydrOXYzine 2020-0 Yes [id number] 50mg Take 1 U nivers 50 mg 5-19 tablet by ity of tablet 00:00: mouth 3 (three) Medical times Branch daily as needed for Itching. lisinopriL 2020-0 Yes [id number] 20mg Take 1 U nivers 20 mg 5-19 tablet by ity of tablet 00:00: mouth daily. Medical Branch spironolact 2020-0 Yes [id number] 25mg Take 1 [facility] one 25 mg 5-19 tablet by ity o f tablet 00:00: mouth (two) Medical times Branch daily. carvediloL 2020-0 Yes [id number] 3.125mg Take 1 [facility] 3.125 mg 5-19 tablet by ity of tablet 00:00: mouth (two) Medical times Branch daily with meals. Pitavastati 2020-0 Yes [id number] 2mg Take 2 mg [facility] n (LIVALO) 5-19 by mouth ity o f 2 mg Tab 00:00: daily. Medical Branch metFORMIN 2020-0 Yes [id number] 500mg Take 1 [facility] 500 mg 5-19 tablet by ity of tablet 00:00: mouth 2 (two) Medical times Branch daily with meals. Blood-Gluco 2020-0 Yes [id number] Use BID, [facility] se Meter 5-19 DX E11.9 ity of (ACCU-CHEK 00:00: ([employer] [place] GUIDE 00 upon Medical GLUCOSE insurance Branch METER) Misc approval) ACCU-CHEK GUIDE blood sugar 2020-0 Yes [id number] Use BID, [facility] diagnostic 5-19 DX E11.9 ity o f (ACCU-CHEK 00:00: ([employer] GUIDE TEST 00 upon Medical STRIPS) insurance Branch strip approval) rifAXIMin 2020-0 Yes [id number] 550mg Take 1 [facility] 550 mg 5-19 tablet by ity of tablet 00:00: mouth (two) Medical times Branch daily. hydrOXYzine 2020-0 Yes [id number] 50mg Take 1 U nivers 50 mg 5-19 tablet by ity of tablet 00:00: mouth 3 (three) Medical times Branch daily as needed for Itching. lisinopriL 2020-0 Yes [id number] 20mg Take 1 U nivers 20 mg 5-19 tablet by ity of tablet 00:00: mouth daily. Medical Branch spironolact 2020-0 Yes [id number] 25mg Take 1 [facility] one 25 mg 5-19 tablet by ity o f tablet 00:00: mouth (two) Medical times Branch daily. carvediloL 2020-0 Yes [id number] 3.125mg Take 1 [facility] 3.125 mg 5-19 tablet by ity of tablet 00:00: mouth (two) Medical times Branch daily with meals. Pitavastati 2020-0 Yes [id number] 2mg Take 2 mg [facility] n (LIVALO) 5-19 by mouth ity o f 2 mg Tab 00:00: daily. Medical Branch metFORMIN 2020-0 Yes [id number] 500mg Take 1 [facility] 500 mg 5-19 tablet by ity of tablet 00:00: mouth (two) Medical times Branch daily with meals. Blood-Gluco 2020-0 Yes [id number] Use BID, [facility] se Meter 5-19 DX E11.9 ity of (ACCU-CHEK 00:00: ([employer] [place] GUIDE upon Medical GLUCOSE insurance Branch METER) Misc approval) ACCU-CHEK GUIDE blood sugar 2020-0 Yes [id number] Use BID, [facility] diagnostic 5-19 DX E11.9 ity o f (ACCU-CHEK 00:00: ([employer] [place] GUIDE TEST 00 upon Medical STRIPS) insurance Branch strip approval) rifAXIMin 2020-0 Yes [id number] 550mg Take 1 [facility] 550 mg 5-19 tablet by ity of tablet 00:00: mouth 2 (two) Medical times Branch daily. hydrOXYzine 2020-0 Yes [id number] 50mg Take 1 U nivers 50 mg 5-19 tablet by ity of tablet 00:00: mouth 3 (three) Medical times Branch daily as needed for Itching. lisinopriL 0 Yes [id number] 20mg Take 1 U nivers 20 mg 5-19 tablet by ity of tablet 00:00: mouth daily. Medical Branch spironolact 2020-0 Yes [id number] 25mg Take 1 [facility] one 25 mg 5-19 tablet by ity o f tablet 00:00: mouth 2 (two) Medical times Branch daily. carvediloL 0 Yes [id number] 3.125mg Take 1 [facility] 3.125 mg 5-19 tablet by ity of tablet 00:00: mouth (two) Medical times Branch daily with meals. Pitavastati 0 Yes [id number] 2mg Take 2 mg [facility] n (LIVALO) 5-19 by mouth ity o f 2 mg Tab 00:00: daily. Medical Branch metFORMIN 2020-0 Yes [id number] 500mg Take 1 [facility] 500 mg 5-19 tablet by ity of tablet 00:00: mouth (two) Medical times Branch daily with meals. Blood-Gluco 2020-0 Yes [id number] Use BID, [facility] se Meter 5-19 DX E11.9 ity of (ACCU-CHEK 00:00: ([employer] [place] GUIDE 00 upon Medical GLUCOSE insurance Branch METER) Misc approval) ACCU-CHEK GUIDE blood sugar Yes [id number] Use BID, [facility] diagnostic 5-19 DX E11.9 ity o f (ACCU-CHEK 00:00: ([employer] [place] GUIDE TEST 00 upon Medical STRIPS) insurance Branch strip approval) rifAXIMin Yes [id number] 550mg Take 1 [facility] 550 mg 5-19 tablet by ity of tablet 00:00: mouth 2 (two) Medical times Branch daily. hydrOXYzine Yes [id number] 50mg Take 1 U nivers 50 mg 5-19 tablet by ity of tablet 00:00: mouth 3 (three) Medical times Branch daily as needed for Itching. lisinopriL Yes [id number] 20mg Take 1 U nivers 20 mg 5-19 tablet by ity of tablet 00:00: mouth daily. Medical Branch spironolact Yes [id number] 25mg Take 1 [facility] one 25 mg 5-19 tablet by ity o f tablet 00:00: mouth 2 (two) Medical times Branch daily. carvediloL Yes [id number] 3.125mg Take 1 [facility] 3.125 mg 5-19 tablet by ity of tablet 00:00: mouth 2 (two) Medical times Branch daily with meals. Pitavastati Yes [id number] 2mg Take 2 mg [facility] n (LIVALO) 5-19 by mouth ity o f 2 mg Tab 00:00: daily. Medical Branch metFORMIN 2020-0 Yes [id number] 500mg Take 1 [facility] 500 mg 5-19 tablet by ity of tablet 00:00: mouth 2 (two) Medical times Branch daily with meals. Blood-Gluco Yes [id number] Use BID, [facility] se Meter 5-19 DX E11.9 ity of (ACCU-CHEK 00:00: ([facility] GUIDE 00 upon Medical GLUCOSE insurance Branch METER) Misc approval) ACCU-CHEK GUIDE blood sugar 2020-0 Yes [id number] Use BID, [facility] diagnostic 5-19 DX E11.9 ity o f (ACCU-CHEK 00:00: ([employer] [place] GUIDE TEST 00 upon Medical STRIPS) insurance Branch strip approval) rifAXIMin Yes [id number] 550mg Take 1 [facility] 550 mg 5-19 tablet by ity of tablet 00:00: mouth 2 (two) Medical times Branch daily. hydrOXYzine 2020-0 Yes [id number] 50mg Take 1 U nivers 50 mg 5-19 tablet by ity of tablet 00:00: mouth 3 (three) Medical times Branch daily as needed for Itching. lisinopriL 2020-0 Yes [id number] 20mg Take 1 U nivers 20 mg 5-19 tablet by ity of tablet 00:00: mouth daily. Medical Branch spironolact 2020-0 Yes [id number] 25mg Take 1 [facility] one 25 mg 5-19 tablet by ity o f tablet 00:00: mouth (two) Medical times Branch daily. carvediloL 2020-0 Yes [id number] 3.125mg Take 1 [facility] 3.125 mg 5-19 tablet by ity of tablet 00:00: mouth 2 (two) Medical times Branch daily with meals. Pitavastati 2020-0 Yes [id number] 2mg Take 2 mg [facility] n (LIVALO) 5-19 by mouth ity o f 2 mg Tab 00:00: daily. Medical Branch metFORMIN 2020-0 Yes [id number] 500mg Take 1 [facility] 500 mg 5-19 tablet by ity of tablet 00:00: mouth (two) Medical times Branch daily with meals. Blood-Gluco 2020-0 Yes [id number] Use BID, [facility] se Meter 5-19 DX E11.9 ity of (ACCU-CHEK 00:00: ([employer] [place] GUIDE 00 upon Medical GLUCOSE insurance Branch METER) Misc approval) ACCU-CHEK GUIDE blood sugar 2020-0 Yes [id number] Use BID, [facility] diagnostic 5-19 DX E11.9 ity o f (ACCU-CHEK 00:00: ([facility] [place] GUIDE TEST 00 upon Medical STRIPS) insurance Branch strip approval) rifAXIMin 2020-0 Yes [id number] 550mg Take 1 [facility] 550 mg 5-19 tablet by ity of tablet 00:00: mouth 2 (two) Medical times Branch daily. hydrOXYzine 2020-0 Yes [id number] 50mg Take 1 U nivers 50 mg 5-19 tablet by ity of tablet 00:00: mouth 3 (three) Medical times Branch daily as needed for Itching. lisinopriL Yes [id number] 20mg Take 1 U nivers 20 mg 5-19 tablet by ity of tablet 00:00: mouth [place] 00 daily. Medical Branch spironolact Yes [id number] 25mg Take 1 [facility] one 25 mg 5-19 tablet by ity o f tablet 00:00: mouth 2 (two) Medical times Branch daily. carvediloL Yes [id number] 3.125mg Take 1 [facility] 3.125 mg 5-19 tablet by ity of tablet 00:00: mouth 2 (two) Medical times Branch daily with meals. Pitavastati Yes [id number] 2mg Take 2 mg [facility] n (LIVALO) 5-19 by mouth ity o f 2 mg Tab 00:00: daily. Medical Branch metFORMIN Yes [id number] 500mg Take 1 [facility] 500 mg 5-19 tablet by ity of tablet 00:00: mouth 2 (two) Medical times Branch daily with meals. Blood-Gluco Yes [id number] Use BID, [facility] se Meter 5-19 DX E11.9 ity of (ACCU-CHEK 00:00: ([facility] GUIDE 00 upon [facility] GLUCOSE insurance Branch METER) Misc approval) ACCU-CHEK GUIDE blood sugar Yes [id number] Use BID, [facility] diagnostic 5-19 DX E11.9 ity o f (ACCU-CHEK 00:00: ([employer] [place] GUIDE TEST 00 upon Medical STRIPS) insurance Branch strip approval) furosemide 2020- No [id number] 40mg Take 1 [facility] 40 mg 5-19 10-20 tablet by ity of tablet 00:00: 00:00 mouth [place] 00 :00 every Medical morning Branch and evening. pantoprazol 2020- No [id number] 40mg Take 1 [facility] e 40 mg EC 5-19 10-19 tablet by ity of tablet 00:00: 00:00 mouth [place] 00 :00 daily. Medical Branch spironolact 2020- No 100mg Q.5D Take [address] [facility] one 4-06 04-06 mg [facility] (ALDACTONE) 12:49: 00:00 mouth 2 Me dical 100 MG 47 :00 (two) Center tablet times daily. penicillin 2020- No 500mg Q.[id number] Take [address] [facility] v potassium 09-01- [id number] mg by [facility] (VEETID) 12:48: 00:00 3D mouth 3 Medic al 500 MG 17 :00 (three) Center tablet times daily. pitavastati 2020- No 2mg QD Take [address] [facility] n calcium 09-01- by mouth [facility] (LIVALO) 2 12:48: 00:00 daily . Med ical mg Tab 08 :00 Center tablet thiamine 2020- No 100mg QD Take [address] [facility] (vitamin 09-01- mg by [facility] B-1) 100 MG 12:48: 00:00 mouth Medi jeevan tablet 08 :00 daily. Center azithromyci Yes [id number] 250mg Take 1 [facility] n 3-24 tablet by ity of (ZITHROMAX 00:00: mouth [place] Z-MERCY) 250 00 daily. Medical mg tablet Take 500 Branch mg day 1, then 250 mg days 2 to 5. azithromyci 2020- No [id number] 250mg Take 1 [facility] n 3-24 -19 tablet by ity of (ZITHROMAX 00:00: 00:00 mouth [place] Z-MERCY) 250 00 :00 daily. Medical mg tablet Take 500 Branch mg day 1, then 250 mg days 2 to 5. azithromyci 2020- No [id number] 250mg Take 1 [facility] n 3-24 -19 tablet by ity of (ZITHROMAX 00:00: 00:00 mouth [place] Z-MERCY) 250 00 :00 daily. Medical mg tablet Take 500 Branch mg day 1, then 250 mg days 2 to 5. LISINOPRIL Yes [id number] Take 1 U nivers 20 mg 3-09 tablet by ity of tablet 00:00: mouth once [place] 00 daily Medical Branch LISINOPRIL 2020- Yes [id number] Take 1 U nivers 20 mg 3-09 tablet by ity of tablet 00:00: mouth once 00 daily Medical Branch LISINOPRIL Yes [id number] Take 1 U nivers 20 mg 3-09 tablet by ity of tablet 00:00: mouth once [place] 00 daily Medical Branch LISINOPRIL 2021-0 1- No [id number] Take 1 [facility] 20 mg 3-09 05-19 tablet by ity of tablet 00:00: 00:00 mouth [place] 00 :00 daily Medical Branch LISINOPRIL 2021-0 1- No [id number] Take 1 [facility] 20 mg 3-09 05-19 tablet by ity of tablet 00:00: 00:00 mouth [place] 00 :00 daily Medical Branch clobetasoL 2021-0 Yes [id number] Apply to Univers 0.05 % 2-09 area(s) 2 ity of cream 00:00: (two) [place] 00 times Medical daily. Branch clobetasoL 2021-0 Yes [id number] Apply to Univers 0.05 % 2-09 area(s) 2 ity of cream 00:00: (two) [place] 00 times Medical daily. Branch clobetasoL 2021-0 Yes [id number] Apply to Univers 0.05 % 2-09 area(s) 2 ity of cream 00:00: (two) [place] 00 times Medical daily. Branch clobetasoL 2021-0 Yes [id number] Apply to Univers 0.05 % 2-09 area(s) 2 ity of cream 00:00: (two) [place] 00 times Medical daily. Branch clobetasoL 2021-0 Yes [id number] Apply to Univers 0.05 % 2-09 area(s) 2 ity of cream 00:00: (two) [place] 00 times Medical daily. Branch clobetasoL 2021-0 Yes [id number] Apply to Univers 0.05 % 2-09 area(s) 2 ity of cream 00:00: (two) [place] 00 times Medical daily. Branch clobetasoL 2021-0 Yes [id number] Apply to Univers 0.05 % 2-09 area(s) 2 ity of cream 00:00: (two) [place] 00 times Medical daily. Branch clobetasoL 2021-0 Yes [id number] Apply to Univers 0.05 % 2-09 area(s) 2 ity of cream 00:00: (two) [place] 00 times Medical daily. Branch clobetasoL 2021-0 Yes [id number] Apply to Univers 0.05 % 2-09 area(s) 2 ity of cream 00:00: (two) [place] 00 times Medical daily. Branch clobetasoL 1-0 Yes [id number] Apply to Univers 0.05 % 2-09 area(s) 2 ity of cream 00:00: (two) [place] 00 times Medical daily. Branch clobetasoL 1-0 Yes [id number] Apply to Univers 0.05 % 2-09 area(s) 2 ity of cream 00:00: (two) [place] 00 times Medical daily. Branch clobetasoL 1-0 Yes [id number] Apply to Univers 0.05 % 2-09 area(s) 2 ity of cream 00:00: (two) [place] 00 times Medical daily. Branch clobetasoL 1-0 Yes [id number] Apply to Univers 0.05 % 2-09 area(s) 2 ity of cream 00:00: (two) [place] 00 times Medical daily. Branch clobetasoL 2020-0 Yes [id number] Apply to Univers 0.05 % 2-09 area(s) 2 ity of cream 00:00: (two) [place] 00 times Medical daily. [place] azithromyci 2020- No 500mg 500 mg, IV [...] Therapy: 7 days foLIC acid 2020-0 Yes [id number] 1mg Take 1 [facility] 1 mg tablet 1-28 tablet by ity of 00:00: mouth [place] 00 daily. Medical Branch foLIC acid 2020-0 Yes [id number] 1mg Take 1 [facility] 1 mg tablet 1-28 tablet by ity of 00:00: mouth [place] 00 daily. Medical Branch foLIC acid 2020-0 Yes [id number] 1mg Take 1 [facility] 1 mg tablet 1-28 tablet by ity of 00:00: mouth [place] 00 daily. Medical Branch foLIC acid 2020-0 Yes [id number] 1mg Take 1 [facility] 1 mg tablet 1-28 tablet by ity of 00:00: mouth [place] 00 daily. Medical Branch foLIC acid 2020-0 Yes [id number] 1mg Take 1 [facility] 1 mg tablet 1-28 tablet by ity of 00:00: mouth [place] 00 daily. Medical Branch foLIC acid 2020-0 Yes [id number] 1mg Take 1 [facility] 1 mg tablet 1-28 tablet by ity of 00:00: mouth [place] 00 daily. Medical Branch foLIC acid 2020-0 Yes [id number] 1mg Take 1 [facility] 1 mg tablet 1-28 tablet by ity of 00:00: mouth [place] 00 daily. Medical Branch foLIC acid 2020-0 Yes [id number] 1mg Take 1 [facility] 1 mg tablet 1-28 tablet by ity of 00:00: mouth [place] 00 daily. Medical Branch foLIC acid 2020-0 Yes [id number] 1mg Take 1 [facility] 1 mg tablet 1-28 tablet by ity of 00:00: mouth [place] 00 daily. Medical Branch foLIC acid 2020-0 Yes [id number] 1mg Take 1 [facility] 1 mg tablet 1-28 tablet by ity of 00:00: mouth [place] 00 daily. Medical Branch foLIC acid 2020-0 Yes [id number] 1mg Take 1 [facility] 1 mg tablet 1-28 tablet by ity of 00:00: mouth [place] 00 daily. Medical Branch foLIC acid 2020-0 Yes [id number] 1mg Take 1 [facility] 1 mg tablet 1-28 tablet by ity of 00:00: mouth [place] 00 daily. Medical Branch foLIC acid 2020-0 Yes [id number] 1mg Take 1 [facility] 1 mg tablet 1-28 tablet by ity of 00:00: mouth [place] 00 daily. Medical Branch foLIC acid Yes [id number] 1mg Take 1 [facility] 1 mg tablet -28 tablet by ity of 00:00: mouth [place] 00 daily. Medical Branch foLIC acid Yes [id number] 1mg Take 1 [facility] 1 mg tablet -28 tablet by ity of 00:00: mouth [place] 00 daily. Medical Branch amoxicillin 2020- No [id number] 500mg Take 1 [facility] -pot -28 02-05 tablet by ity of clavulanate 00:00: [...] 1{appli Q.5D Apply [address] [facility] (TEMOVATE) 8-03 03-28 cation} [facility] 0.05 % 00:[facility]: 00:00 n Medical cream 00 :00 topically Center 2 (two) times daily. furosemide 2020- No 80mg Q.5D Take [address] [facility] (LASIX) 40 1-07 04-06 tablets [facility] MG tablet 00:00: 00:00 (80 mg Medic al 00 :00 total) by Center mouth 2 (two) times daily. furosemide 2018-05 Yes [id number] 40mg Take 1 U nivers 40 mg 2-20 tablet by ity of tablet 00:00: mouth [place] 00 every Medical morning Branch and evening. metFORMIN 2018-05 Yes [id number] 500mg Take 1 [facility] 500 mg 2-20 tablet by ity of tablet 00:00: mouth 2 [place] 00 (two) Medical times Branch daily with meals. carvedilol 2018-05 Yes [id number] 3.125mg Take 1 [facility] 3.125 mg 2-20 tablet by ity of tablet 00:00: mouth 2 [place] 00 (two) Medical times Branch daily with meals. lisinopril 2018-05 Yes [id number] 20mg Take 1 U nivers 20 mg 2-20 tablet by ity of tablet 00:00: mouth [place] 00 daily. Medical Branch spironolact 2018-05 Yes [id number] 25mg Take 1 [facility] one 25 mg 2-20 tablet by ity o f tablet 00:00: mouth 2 [place] 00 (two) Medical times Branch daily. rifAXIMin 2018- Yes [id number] 550mg Take 1 [facility] 550 mg 2-20 tablet by ity of tablet 00:00: mouth 2 [place] 00 (two) Medical times Branch daily. albuterol 2018-05 Yes [id number] 2{puff} Inhale 2 Univers 90 2-20 Puffs ity of mcg/actuati 00:00: every 6 [place] on inhaler 00 (six) Medical hours as Branch needed for Wheezing or Shortness of Breath. Pitavastati 2018-05 Yes [id number] 2mg Take 2 mg Univers n (LIVALO) 2-20 by mouth ity o f 2 mg Tab 00:00: daily. [place] 00 Medical Branch Lancets 2018-05 Yes [id number] Use BID, U nivers Misc 2-20 DX E11.9 ity of 00:00: ([facility] [place] 00 upon Medical insurance Branch approval) blood sugar 2018-05 Yes [id number] Use BID, Univers diagnostic 2-20 DX E11.9 ity o f (ACCU-CHEK 00:00: ([facility] GUIDE) 00 upon Medical strip insurance Branch approval) lactulose 2018-05 Yes [id number] 15mL Take 15 mL Univers 10 gram/15 2-20 by mouth 3 ity of mL solution 00:00: (three) [place] 00 times Medical daily. Branch hydrOXYzine 2018-05 Yes [id number] 50mg Take 1 U nivers 50 mg 2-20 tablet by ity of tablet 00:00: mouth 3 [place] 00 (three) Medical times Branch daily as needed for Itching. calcipotrie 2018-05 Yes [id number] Apply to Univers ne 0.005 % 2-20 area(s) 2 ity of cream 00:00: (two) [place] 00 times Medical daily. Branch clobetasol 2018-05 Yes [id number] Apply to Univers 0.05 % 2-20 area(s) 2 ity of cream 00:00: (two) [place] 00 times Medical daily. Branch foLIC acid 2018-05 Yes [id number] 1mg Take 1 [facility] 1 mg tablet 2-20 tablet by ity of 00:00: mouth [place] 00 daily. Medical Branch pantoprazol 2018-05 Yes [id number] 40mg Take 1 [facility] e 40 mg EC 2-20 tablet by ity of tablet 00:00: mouth [place] 00 daily. Medical Branch triamcinolo 2018-05 Yes [id number] Apply to Univers ne 2-20 affected ity of acetonide 00:00: area(s) 2 [place] 0.1 % cream 00 (two) Medical times Branch daily. furosemide 2018-05 Yes [id number] 40mg Take 1 U nivers 40 mg 2-20 tablet by ity of tablet 00:00: mouth [place] 00 every Medical morning Branch and evening. metFORMIN 2018-05 Yes [id number] 500mg Take 1 [facility] 500 mg 2-20 tablet by ity of tablet 00:00: mouth 2 (two) Medical times Branch daily with meals. carvedilol 2018-05 Yes [id number] 3.125mg Take 1 [facility] 3.125 mg 2-20 tablet by ity of tablet 00:00: mouth 2 (two) Medical times Branch daily with meals. lisinopril 2018-05 Yes [id number] 20mg Take 1 U nivers 20 mg 2-20 tablet by ity of tablet 00:00: mouth daily. Medical Branch spironolact 2018-05 Yes [id number] 25mg Take 1 [facility] one 25 mg 2-20 tablet by ity o f tablet 00:00: mouth 2 (two) Medical times Branch daily. rifAXIMin 2018-05 Yes [id number] 550mg Take 1 [facility] 550 mg 2-20 tablet by ity of tablet 00:00: mouth 2 (two) Medical times Branch daily. albuterol 2018-05 Yes [id number] 2{puff} Inhale 2 [facility] 90 2-20 Puffs ity of mcg/actuati 00:00: every 6 [place] on inhaler 00 (six) Medical hours as Branch needed for Wheezing or Shortness of Breath. Pitavastati 2018-05 Yes [id number] 2mg Take 2 mg [facility] n (LIVALO) 2-20 by mouth ity o f 2 mg Tab 00:00: daily. [place] Medical Branch Lancets 2018-05 Yes [id number] Use BID, U nivers Misc 2-20 DX E11.9 ity of 00:00: ([facility] 00 upon Medical insurance Branch approval) blood sugar 2018-05 Yes [id number] Use BID, Univers diagnostic 2-20 DX E11.9 ity o f (ACCU-CHEK 00:00: ([facility] GUIDE) [address] [place] [address] Medical strip insurance Branch approval) lactulose 2018-05 Yes [id number] 15mL Take 15 mL [facility] 10 gram/15 2-20 by mouth 3 ity of mL solution 00:00: (three) [place] 00 times Medical daily. Branch hydrOXYzine 2018-05 Yes [id number] 50mg Take 1 U nivers 50 mg 2-20 tablet by ity of tablet 00:00: mouth 3 00 (three) Medical times Branch daily as needed for Itching. calcipotrie 2018-05 Yes [id number] Apply to Univers ne 0.005 % 2-20 area(s) 2 ity of cream 00:00: (two) [place] 00 times Medical daily. Branch clobetasol 2018-05 Yes [id number] Apply to Univers 0.05 % 2-20 area(s) 2 ity of cream 00:00: (two) [place] 00 times Medical daily. Branch foLIC acid 2018-05 Yes [id number] 1mg Take 1 [facility] 1 mg tablet 2-20 tablet by ity of 00:00: mouth 00 daily. Medical Branch pantoprazol 2018-05 Yes [id number] 40mg Take 1 [facility] e 40 mg EC 2-20 tablet by ity of tablet 00:00: mouth 00 daily. Medical Branch triamcinolo 2018-05 Yes [id number] Apply to Univers ne 2-20 affected ity of acetonide 00:00: area(s) 2 [place] 0.1 % cream 00 (two) Medical times Branch daily. furosemide 2018-05 Yes [id number] 40mg Take 1 U nivers 40 mg 2-20 tablet by ity of tablet 00:00: mouth 00 every Medical morning Branch and evening. metFORMIN 2018-05 Yes [id number] 500mg Take 1 [facility] 500 mg 2-20 tablet by ity of tablet 00:00: mouth 2 (two) Medical times Branch daily with meals. carvedilol 2018-05 Yes [id number] 3.125mg Take 1 [facility] 3.125 mg 2-20 tablet by ity of tablet 00:00: mouth 2 (two) Medical times Branch daily with meals. lisinopril 2018-05 Yes [id number] 20mg Take 1 U nivers 20 mg 2-20 tablet by ity of tablet 00:00: mouth 00 daily. Medical Branch spironolact 2018-05 Yes [id number] 25mg Take 1 [facility] one 25 mg 2-20 tablet by ity o f tablet 00:00: mouth 2 (two) Medical times Branch daily. rifAXIMin 2018-05 Yes [id number] 550mg Take 1 [facility] 550 mg 2-20 tablet by ity of tablet 00:00: mouth 2 (two) Medical times Branch daily. albuterol 2018-05 Yes [id number] 2{puff} Inhale 2 [facility] 90 2-20 Puffs ity of mcg/actuati 00:00: every 6 [place] on inhaler 00 (six) Medical hours as Branch needed for Wheezing or Shortness of Breath. Pitavastati 2018-05 Yes [id number] 2mg Take 2 mg [facility] n (LIVALO) 2-20 by mouth ity o f 2 mg Tab 00:00: daily. [place] 00 Medical Branch Lancets 2018-05 Yes [id number] Use BID, U nivers Misc 2-20 DX E11.9 ity of 00:00: ([facility] [place] 00 upon Medical insurance Branch approval) blood sugar 2018-05 Yes [id number] Use BID, [facility] diagnostic 2-20 DX E11.9 ity o f (ACCU-CHEK 00:00: ([facility] GUIDE) 00 upon Medical strip insurance Branch approval) lactulose 2018-05 Yes [id number] 15mL Take 15 mL [facility] 10 gram/15 2-20 by mouth 3 ity of mL solution 00:00: (three) [place] 00 times Medical daily. Branch hydrOXYzine 2018-05 Yes [id number] 50mg Take 1 U nivers 50 mg 2-20 tablet by ity of tablet 00:00: mouth 3 [place] 00 (three) Medical times Branch daily as needed for Itching. calcipotrie 2018-05 Yes [id number] Apply to [facility] ne 0.005 % 2-20 area(s) 2 ity of cream 00:00: (two) [place] 00 times Medical daily. Branch clobetasol 2018-05 Yes [id number] Apply to [facility] 0.05 % 2-20 area(s) 2 ity of cream 00:00: (two) [place] 00 times Medical daily. Branch pantoprazol 2018-05 Yes [id number] 40mg Take 1 [facility] e 40 mg EC 2-20 tablet by ity of tablet 00:00: mouth [place] 00 daily. Medical Branch triamcinolo 2018-05 Yes [id number] Apply to [facility] ne 2-20 affected ity of acetonide 00:00: area(s) 2 [place] 0.1 % cream 00 (two) Medical times Branch daily. furosemide 2018-05 Yes [id number] 40mg Take 1 U nivers 40 mg 2-20 tablet by ity of tablet 00:00: mouth [place] 00 every Medical morning Branch and evening. metFORMIN 2018-05 Yes [id number] 500mg Take 1 [facility] 500 mg 2-20 tablet by ity of tablet 00:00: mouth 2 (two) Medical times Branch daily with meals. carvedilol 2018-05 Yes [id number] 3.125mg Take 1 [facility] 3.125 mg 2-20 tablet by ity of tablet 00:00: mouth 2 (two) Medical times Branch daily with meals. lisinopril 2018-05 Yes [id number] 20mg Take 1 U nivers 20 mg 2-20 tablet by ity of tablet 00:00: mouth daily. Medical Branch spironolact 2018-05 Yes [id number] 25mg Take 1 [facility] one 25 mg 2-20 tablet by ity o f tablet 00:00: mouth 2 (two) Medical times Branch daily. rifAXIMin 2018-05 Yes [id number] 550mg Take 1 [facility] 550 mg 2-20 tablet by ity of tablet 00:00: mouth 2 [place] (two) Medical times Branch daily. albuterol 2018-05 Yes [id number] 2{puff} Inhale 2 [facility] 90 2-20 Puffs ity of mcg/actuati 00:00: every 6 [place] on inhaler 00 (six) Medical hours as Branch needed for Wheezing or Shortness of Breath. Pitavastati 2018-05 Yes [id number] 2mg Take 2 mg [facility] n (LIVALO) 2-20 by mouth ity o f 2 mg Tab 00:00: daily. [place] Medical Branch Lancets 2018-05 Yes [id number] Use BID, U nivers Misc 2-20 DX E11.9 ity of 00:00: ([facility] 00 upon Medical insurance Branch approval) blood sugar 2018-05 Yes [id number] Use BID, [facility] diagnostic 2-20 DX E11.9 ity o f (ACCU-CHEK 00:00: ([facility] GUIDE) [address] [place] [address] Medical strip insurance Branch approval) lactulose 2018-05 Yes [id number] 15mL Take 15 mL [facility] 10 gram/15 2-20 by mouth 3 ity of mL solution 00:00: (three) [place] 00 times Medical daily. Branch hydrOXYzine 2018-05 Yes [id number] 50mg Take 1 U nivers 50 mg 2-20 tablet by ity of tablet 00:00: mouth 3 [place] (three) Medical times Branch daily as needed for Itching. calcipotrie 2018-05 Yes [id number] Apply to [facility] ne 0.005 % 2-20 area(s) 2 ity of cream 00:00: (two) [place] 00 times Medical daily. Branch clobetasol 2018-05 Yes [id number] Apply to [facility] 0.05 % 2-20 area(s) 2 ity of cream 00:00: (two) [place] 00 times Medical daily. Branch pantoprazol 2018-05 Yes [id number] 40mg Take 1 [facility] e 40 mg EC 2-20 tablet by ity of tablet 00:00: mouth [place] 00 daily. Medical Branch triamcinolo 2018-05 Yes [id number] Apply to [facility] ne 2-20 affected ity of acetonide 00:00: area(s) 2 [place] 0.1 % cream 00 (two) Medical times Branch daily. albuterol 2018-05 Yes [id number] 2{puff} Inhale 2 [facility] 90 2-20 Puffs ity of mcg/actuati 00:00: every 6 [place] on inhaler 00 (six) Medical hours as Branch needed for Wheezing or Shortness of Breath. Lancets 2018-05 Yes [id number] Use BID, U nivers Misc 2-20 DX E11.9 ity of 00:00: (Brand [place] 00 upon Medical insurance Branch approval) lactulose 2018-05 Yes [id number] 15mL Take 15 mL [facility] 10 gram/15 2-20 by mouth 3 ity of mL solution 00:00: (three) [place] 00 times Medical daily. Branch calcipotrie 2018-05 Yes [id number] Apply to [facility] ne 0.005 % 2-20 area(s) 2 ity of cream 00:00: (two) [place] 00 times Medical daily. Branch triamcinolo 2018-05 Yes [id number] Apply to [facility] ne 2-20 affected ity of acetonide 00:00: area(s) 2 [place] 0.1 % cream 00 (two) Medical times Branch daily. furosemide 2018-05 Yes [id number] 40mg Take 1 U nivers 40 mg 2-20 tablet by ity of tablet 00:00: mouth [place] 00 every Medical morning Branch and evening. metFORMIN 2018-05 Yes [id number] 500mg Take 1 [facility] 500 mg 2-20 tablet by ity of tablet 00:00: mouth 2 [place] 00 (two) Medical times Branch daily with meals. carvedilol 2018-05 Yes [id number] 3.125mg Take 1 [facility] 3.125 mg 2-20 tablet by ity of tablet 00:00: mouth 2 (two) Medical times Branch daily with meals. spironolact 2018-05 Yes [id number] 25mg Take 1 [facility] one 25 mg 2-20 tablet by ity o f tablet 00:00: mouth 2 [place] (two) Medical times Branch daily. rifAXIMin 2018-05 Yes [id number] 550mg Take 1 [facility] 550 mg 2-20 tablet by ity of tablet 00:00: mouth 2 (two) Medical times Branch daily. albuterol 2018-05 Yes [id number] 2{puff} Inhale 2 [facility] 90 2-20 Puffs ity of mcg/actuati 00:00: every 6 [place] on inhaler 00 (six) Medical hours as Branch needed for Wheezing or Shortness of Breath. Pitavastati 2018-05 Yes [id number] 2mg Take 2 mg [facility] n (LIVALO) 2-20 by mouth ity o f 2 mg Tab 00:00: daily. [place] [facility] Lancets 2018-05 Yes [id number] Use BID, U nivers Misc 2-20 DX E11.9 ity of 00:00: ([facility] 00 upon Medical insurance Branch approval) blood sugar 2018-05 Yes [id number] Use BID, [facility] diagnostic 2-20 DX E11.9 ity o f (ACCU-CHEK 00:00: ([facility] GUIDE) [address] [place] [address] strip insurance Branch approval) lactulose 2018-05 Yes [id number] 15mL Take 15 mL [facility] 10 gram/15 2-20 by mouth 3 ity of mL solution 00:00: (three) [place] 00 times Medical daily. Branch hydrOXYzine 2018-05 Yes [id number] 50mg Take 1 U nivers 50 mg 2-20 tablet by ity of tablet 00:00: mouth 3 (three) Medical times Branch daily as needed for Itching. calcipotrie 2018-05 Yes [id number] Apply to [facility] ne 0.005 % 2-20 area(s) 2 ity of cream 00:00: (two) [place] 00 times Medical daily. Branch pantoprazol 2018-05 Yes [id number] 40mg Take 1 [facility] e 40 mg EC 2-20 tablet by ity of tablet 00:00: mouth 00 daily. Medical Branch triamcinolo 2018-05 Yes [id number] Apply to [facility] ne 2-20 affected ity of acetonide 00:00: area(s) 2 [place] 0.1 % cream 00 (two) Medical times Branch daily. furosemide 2018-05 Yes [id number] 40mg Take 1 U nivers 40 mg 2-20 tablet by ity of tablet 00:00: mouth 00 every Medical morning Branch and evening. metFORMIN 2018-05 Yes [id number] 500mg Take 1 [facility] 500 mg 2-20 tablet by ity of tablet 00:00: mouth [place] (two) Medical times Branch daily with meals. carvedilol 2018-05 Yes [id number] 3.125mg Take 1 [facility] 3.125 mg 2-20 tablet by ity of tablet 00:00: mouth (two) Medical times Branch daily with meals. spironolact 2018-05 Yes [id number] 25mg Take 1 [facility] one 25 mg 2-20 tablet by ity o f tablet 00:00: mouth [place] (two) Medical times Branch daily. rifAXIMin 2018-05 Yes [id number] 550mg Take 1 [facility] 550 mg 2-20 tablet by ity of tablet 00:00: mouth [place] (two) Medical times Branch daily. albuterol 2018-05 Yes [id number] 2{puff} Inhale 2 [facility] 90 2-20 Puffs ity of mcg/actuati 00:00: every 6 [place] on inhaler 00 (six) Medical hours as Branch needed for Wheezing or Shortness of Breath. Pitavastati 2018-05 Yes [id number] 2mg Take 2 mg [facility] n (LIVALO) 2-20 by mouth ity o f 2 mg Tab 00:00: daily. [place] 00 Medical Branch Lancets 2018-05 Yes [id number] Use BID, U nivers Misc 2-20 DX E11.9 ity of 00:00: ([facility] [place] 00 upon Medical insurance Branch approval) blood sugar 2018-05 Yes [id number] Use BID, [facility] diagnostic 2-20 DX E11.9 ity o f (ACCU-CHEK 00:00: ([facility] GUIDE) [address] [place] [address] Medical strip insurance Branch approval) lactulose 2018-05 Yes [id number] 15mL Take 15 mL [facility] 10 gram/15 2-20 by mouth 3 ity of mL solution 00:00: (three) [place] 00 times Medical daily. Branch hydrOXYzine 2018-05 Yes [id number] 50mg Take 1 U nivers 50 mg 2-20 tablet by ity of tablet 00:00: mouth 3 [place] 00 (three) Medical times Branch daily as needed for Itching. calcipotrie 2018-05 Yes [id number] Apply to [facility] ne 0.005 % 2-20 area(s) 2 ity of cream 00:00: (two) [place] 00 times Medical daily. Branch pantoprazol 2018-05 Yes [id number] 40mg Take 1 [facility] e 40 mg EC 2-20 tablet by ity of tablet 00:00: mouth [place] 00 daily. Medical Branch triamcinolo 2018-05 Yes [id number] Apply to [facility] ne 2-20 affected ity of acetonide 00:00: area(s) 2 [place] 0.1 % cream 00 (two) Medical times Branch daily. furosemide 2018-05 Yes [id number] 40mg Take 1 U nivers 40 mg 2-20 tablet by ity of tablet 00:00: mouth [place] 00 every Medical morning Branch and evening. metFORMIN 2018-05 Yes [id number] 500mg Take 1 [facility] 500 mg 2-20 tablet by ity of tablet 00:00: mouth 2 (two) Medical times Branch daily with meals. carvedilol 2018-05 Yes [id number] 3.125mg Take 1 [facility] 3.125 mg 2-20 tablet by ity of tablet 00:00: mouth 2 (two) Medical times Branch daily with meals. spironolact 2018-05 Yes [id number] 25mg Take 1 [facility] one 25 mg 2-20 tablet by ity o f tablet 00:00: mouth 2 [place] (two) Medical times Branch daily. rifAXIMin 2018-05 Yes [id number] 550mg Take 1 [facility] 550 mg 2-20 tablet by ity of tablet 00:00: mouth 2 [place] (two) Medical times Branch daily. albuterol 2018-05 Yes [id number] 2{puff} Inhale 2 [facility] 90 2-20 Puffs ity of mcg/actuati 00:00: every 6 [place] on inhaler 00 (six) Medical hours as Branch needed for Wheezing or Shortness of Breath. Pitavastati 2018-05 Yes [id number] 2mg Take 2 mg [facility] n (LIVALO) 2-20 by mouth ity o f 2 mg Tab 00:00: daily. [place] 00 Medical Branch Lancets 2018-05 Yes [id number] Use BID, U nivers Misc 2-20 DX E11.9 ity of 00:00: ([facility] 00 upon Medical insurance Branch approval) blood sugar 2018-05 Yes [id number] Use BID, [facility] diagnostic 2-20 DX E11.9 ity o f (ACCU-CHEK 00:00: ([facility] GUIDE) 00 upon Medical strip insurance Branch approval) lactulose 2018-05 Yes [id number] 15mL Take 15 mL [facility] 10 gram/15 2-20 by mouth 3 ity of mL solution 00:00: (three) [place] 00 times Medical daily. Branch hydrOXYzine 2018-05 Yes [id number] 50mg Take 1 U nivers 50 mg 2-20 tablet by ity of tablet 00:00: mouth 3 [place] 00 (three) Medical times Branch daily as needed for Itching. calcipotrie 2018-05 Yes [id number] Apply to [facility] ne 0.005 % 2-20 area(s) 2 ity of cream 00:00: (two) [place] 00 times Medical daily. Branch pantoprazol 2018-05 Yes [id number] 40mg Take 1 [facility] e 40 mg EC 2-20 tablet by ity of tablet 00:00: mouth [place] 00 daily. Medical Branch triamcinolo 2018-05 Yes [id number] Apply to [facility] ne 2-20 affected ity of acetonide 00:00: area(s) 2 [place] 0.1 % cream 00 (two) Medical times Branch daily. albuterol 2018-05 Yes [id number] 2{puff} Inhale 2 [facility] 90 2-20 Puffs ity of mcg/actuati 00:00: every 6 [place] on inhaler 00 (six) Medical hours as Branch needed for Wheezing or Shortness of Breath. Lancets 2018-05 Yes [id number] Use BID, U nivers Misc 2-20 DX E11.9 ity of 00:00: ([facility] 00 upon Medical insurance Branch approval) lactulose 2018-05 Yes [id number] 15mL Take 15 mL [facility] 10 gram/15 2-20 by mouth 3 ity of mL solution 00:00: (three) [place] 00 times Medical daily. Branch calcipotrie 2018-05 Yes [id number] Apply to Univers ne 0.005 % 2-20 area(s) 2 ity of cream 00:00: (two) [place] 00 times Medical daily. Branch triamcinolo 2018-05 Yes [id number] Apply to [facility] ne 2-20 affected ity of acetonide 00:00: area(s) 2 [place] 0.1 % cream 00 (two) Medical times Branch daily. albuterol 2018-05 Yes [id number] 2{puff} Inhale 2 [facility] 90 2-20 Puffs ity of mcg/actuati 00:00: every 6 [place] on inhaler 00 (six) Medical hours as Branch needed for Wheezing or Shortness of Breath. Lancets 2018-05 Yes [id number] Use BID, U nivers Misc 2-20 DX E11.9 ity of 00:00: (Brand [address] insurance Branch approval) lactulose 2018-05 Yes [id number] 15mL Take 15 mL [facility] 10 gram/15 2-20 by mouth 3 ity of mL solution 00:00: (three) [place] 00 times Medical daily. Branch calcipotrie 2018-05 Yes [id number] Apply to Univers ne 0.005 % 2-20 area(s) 2 ity of cream 00:00: (two) [place] 00 times Medical daily. Branch triamcinolo 2018-05 Yes [id number] Apply to [facility] ne 2-20 affected ity of acetonide 00:00: area(s) 2 [place] 0.1 % cream 00 (two) Medical times Branch daily. albuterol 2018-05 Yes [id number] 2{puff} Inhale 2 [facility] 90 2-20 Puffs ity of mcg/actuati 00:00: every 6 [place] on inhaler 00 (six) Medical hours as Branch needed for Wheezing or Shortness of Breath. Lancets 2018-05 Yes [id number] Use BID, U nivers Misc 2-20 DX E11.9 ity of 00:00: (Brand [address] insurance Branch approval) lactulose 2018-05 Yes [id number] 15mL Take 15 mL [facility] 10 gram/15 2-20 by mouth 3 ity of mL solution 00:00: (three) [place] 00 times Medical daily. Branch calcipotrie 2018-05 Yes [id number] Apply to Univers ne 0.005 % 2-20 area(s) 2 ity of cream 00:00: (two) [place] 00 times Medical daily. Branch triamcinolo 2018-05 Yes [id number] Apply to [facility] ne 2-20 affected ity of acetonide 00:00: area(s) 2 [place] 0.1 % cream 00 (two) Medical times Branch daily. albuterol 2018-05 Yes [id number] 2{puff} Inhale 2 [facility] 90 2-20 Puffs ity of mcg/actuati 00:00: every 6 [place] on inhaler 00 (six) Medical hours as Branch needed for Wheezing or Shortness of Breath. Lancets 2018-05 Yes [id number] Use BID, U nivers Misc 2-20 DX E11.9 ity of 00:00: (Brand [address] insurance Branch approval) lactulose 2018-05 Yes [id number] 15mL Take 15 mL [facility] 10 gram/15 2-20 by mouth 3 ity of mL solution 00:00: (three) [place] 00 times Medical daily. Branch calcipotrie 2018-05 Yes [id number] Apply to Univers ne 0.005 % 2-20 area(s) 2 ity of cream 00:00: (two) [place] 00 times Medical daily. Branch triamcinolo 2018-05 Yes [id number] Apply to [facility] ne 2-20 affected ity of acetonide 00:00: area(s) 2 [place] 0.1 % cream 00 (two) Medical times Branch daily. albuterol 2018-05 Yes [id number] 2{puff} Inhale 2 [facility] 90 2-20 Puffs ity of mcg/actuati 00:00: every 6 [place] on inhaler 00 (six) Medical hours as Branch needed for Wheezing or Shortness of Breath. Lancets 2018-05 Yes [id number] Use BID, U nivers Misc 2-20 DX E11.9 ity of 00:00: (Brand [address] insurance Branch approval) lactulose 2018-05 Yes [id number] 15mL Take 15 mL [facility] 10 gram/15 2-20 by mouth 3 ity of mL solution 00:00: (three) [place] 00 times Medical daily. Branch calcipotrie 2018-05 Yes [id number] Apply to Univers ne 0.005 % 2-20 area(s) 2 ity of cream 00:00: (two) [place] 00 times Medical daily. Branch triamcinolo 2018-05 Yes [id number] Apply to [facility] ne 2-20 affected ity of acetonide 00:00: area(s) 2 [place] 0.1 % cream 00 (two) Medical times Branch daily. albuterol 2018-05 Yes [id number] 2{puff} Inhale 2 [facility] 90 2-20 Puffs ity of mcg/actuati 00:00: every 6 [place] on inhaler 00 (six) Medical hours as Branch needed for Wheezing or Shortness of Breath. Lancets 2018-05 Yes [id number] Use BID, U nivers Misc 2-20 DX E11.9 ity of 00:00: (Brand [address] Medical insurance Branch approval) lactulose 2018-05 Yes [id number] 15mL Take 15 mL [facility] 10 gram/15 2-20 by mouth 3 ity of mL solution 00:00: (three) [place] 00 times Medical daily. Branch calcipotrie 2018-05 Yes [id number] Apply to Univers ne 0.005 % 2-20 area(s) 2 ity of cream 00:00: (two) [place] 00 times Medical daily. Branch triamcinolo 2018-05 Yes [id number] Apply to Univers ne 2-20 affected ity of acetonide 00:00: area(s) 2 [place] 0.1 % cream 00 (two) Medical times Branch daily. albuterol 2018-05 Yes [id number] 2{puff} Inhale 2 [facility] 90 2-20 Puffs ity of mcg/actuati 00:00: every 6 [place] on inhaler 00 (six) Medical hours as Branch needed for Wheezing or Shortness of Breath. Lancets 2018-05 Yes [id number] Use BID, U nivers Misc 2-20 DX E11.9 ity of 00:00: (Brand [address] Medical insurance Branch approval) lactulose 2018-05 Yes [id number] 15mL Take 15 mL [facility] 10 gram/15 2-20 by mouth 3 ity of mL solution 00:00: (three) [place] 00 times Medical daily. Branch calcipotrie 2018-05 Yes [id number] Apply to Univers ne 0.005 % 2-20 area(s) 2 ity of cream 00:00: (two) [place] 00 times Medical daily. Branch triamcinolo 2018-05 Yes [id number] Apply to [facility] ne 2-20 affected ity of acetonide 00:00: area(s) 2 [place] 0.1 % cream 00 (two) Medical times Branch daily. albuterol 2018-05 Yes [id number] 2{puff} Inhale 2 [facility] 90 2-20 Puffs ity of mcg/actuati 00:00: every 6 [place] on inhaler 00 (six) Medical hours as Branch needed for Wheezing or Shortness of Breath. Lancets 2018-05 Yes [id number] Use BID, U nivers Misc 2-20 DX E11.9 ity of 00:00: (Brand [address] insurance Branch approval) lactulose 2018-05 Yes [id number] 15mL Take 15 mL [facility] 10 gram/15 2-20 by mouth 3 ity of mL solution 00:00: (three) [place] 00 times Medical daily. Branch calcipotrie 2018-05 Yes [id number] Apply to [facility] ne 0.005 % 2-20 area(s) 2 ity of cream 00:00: (two) [place] 00 times Medical daily. Branch triamcinolo 2018-05 Yes [id number] Apply to Univers ne 2-20 affected ity of acetonide 00:00: area(s) 2 [place] 0.1 % cream 00 (two) Medical times Branch daily. albuterol 2018-05 Yes [id number] 2{puff} Inhale 2 [facility] 90 2-20 Puffs ity of mcg/actuati 00:00: every 6 [place] on inhaler 00 (six) Medical hours as Branch needed for Wheezing or Shortness of Breath. Lancets 2018-05 Yes [id number] Use BID, U nivers Misc 2-20 DX E11.9 ity of 00:00: (Brand [address] insurance Branch approval) lactulose 2018-05 Yes [id number] 15mL Take 15 mL [facility] 10 gram/15 2-20 by mouth 3 ity of mL solution 00:00: (three) [place] 00 times Medical daily. Branch calcipotrie 2018-05 Yes [id number] Apply to Univers ne 0.005 % 2-20 area(s) 2 ity of cream 00:00: (two) [place] 00 times Medical daily. Branch triamcinolo 2018-05 Yes [id number] Apply to [facility] ne 2-20 affected ity of acetonide 00:00: area(s) 2 [place] 0.1 % cream 00 (two) Medical times Branch daily. albuterol 2018-05 Yes [id number] 2{puff} Inhale 2 [facility] 90 2-20 Puffs ity of mcg/actuati 00:00: every 6 [place] on inhaler 00 (six) Medical hours as Branch needed for Wheezing or Shortness of Breath. Lancets 2018-05 Yes [id number] Use BID, U nivers Misc 2-20 DX E11.9 ity of 00:00: (Brand [place] 00 upon Medical insurance Branch approval) lactulose 2018-05 Yes [id number] 15mL Take 15 mL [facility] 10 gram/15 2-20 by mouth 3 ity of mL solution 00:00: (three) [place] 00 times Medical daily. Branch calcipotrie 2018-05 Yes [id number] Apply to [facility] ne 0.005 % 2-20 area(s) 2 ity of cream 00:00: (two) [place] 00 times Medical daily. Branch triamcinolo 2018-05 Yes [id number] Apply to [facility] ne 2-20 affected ity of acetonide 00:00: area(s) 2 [place] 0.1 % cream 00 (two) Medical times Branch daily. furosemide 2018-05- No [id number] 40mg Take 1 [facility] 40 mg 2-20 05-19 tablet by ity of tablet 00:00: 00:00 mouth [place] 00 :00 every Medical morning Branch and evening. metFORMIN 2018-05- No [id number] 500mg Take 1 [facility] 500 mg 2-20 05-19 tablet by ity of tablet 00:00: 00:00 mouth 2 [place] 00 :00 (two) Medical times Branch daily with meals. carvedilol 2018-05- No [id number] 3.125mg Take 1 [facility] 3.125 mg 2-20 05-19 tablet by ity o f tablet 00:00: 00:00 mouth 2 [place] 00 :00 (two) Medical times Branch daily with meals. spironolact 2018-05- No [id number] 25mg Take 1 [facility] one 25 mg 2-20 05-19 tablet by ity of tablet 00:00: 00:00 mouth 2 [place] 00 :00 (two) Medical times Branch daily. rifAXIMin 2018-05- No [id number] 550mg Take 1 [facility] 550 mg 2-20 05-19 tablet by ity of tablet 00:00: 00:00 mouth 2 [place] 00 :00 (two) Medical times Branch daily. Pitavastati 2018-05- No [id number] 2mg Take 2 mg [facility] n (LIVALO) 2-20 05-19 by mouth ity of 2 mg Tab 00:00: 00:00 daily. [place] 00 :00 Medical Branch blood sugar 2018-05- No [id number] Use BID, [facility] diagnostic 2-20 05-19 DX E11.9 ity of (ACCU-CHEK 00:00: 00:00 ([place] GUIDE[place] 00 :00 upon Medical strip insurance Branch approval) hydrOXYzine 2018-05- No [id number] 50mg Take 1 [facility] 50 mg 2-20 05-19 tablet by ity of tablet 00:00: 00:00 mouth 3 [place] 00 :00 (three) Medical times Branch daily as needed for Itching. pantoprazol 2018-05- No [id number] 40mg Take 1 [facility] e 40 mg EC 2-20 05-19 tablet by ity of tablet 00:00: 00:00 mouth [place] 00 :00 daily. Medical Branch furosemide 2018-05- No [id number] 40mg Take 1 [facility] 40 mg 2-20 05-19 tablet by ity of tablet 00:00: 00:00 mouth [place] 00 :00 every Medical morning Branch and evening. metFORMIN 2018-05- No [id number] 500mg Take 1 [facility] 500 mg 2-20 05-19 tablet by ity of tablet 00:00: 00:00 mouth 2 [place] 00 :00 (two) Medical times Branch daily with meals. carvedilol 2018-05- No [id number] 3.125mg Take 1 [facility] 3.125 mg 2-20 05-19 tablet by ity o f tablet 00:00: 00:00 mouth 2 [place] 00 :00 (two) Medical times Branch daily with meals. spironolact 2018-05- No [id number] 25mg Take 1 [facility] one 25 mg 2-20 05-19 tablet by ity of tablet 00:00: 00:00 mouth 2 [place] 00 :00 (two) Medical times Branch daily. rifAXIMin 2018-05- No [id number] 550mg Take 1 [facility] 550 mg 07-18 tablet by ity of tablet 00:00: 00:00 mouth 2 [place] 00 :00 (two) Medical times Branch daily. Pitavastati 2018-05- No [id number] 2mg Take 2 mg [facility] n (LIVALO) 07-18 by mouth ity of 2 mg Tab 00:00: 00:00 daily. [place] 00 :00 Medical Branch blood sugar 2018-05- No [id number] Use BID, [facility] diagnostic 07-18 DX E11.9 ity of (ACCU-CHEK 00:00: 00:00 ([place] GUIDE[place] 00 :00 upon Medical strip insurance Branch approval) hydrOXYzine 2018-05- No [id number] 50mg Take 1 [facility] 50 mg 07-18 tablet by ity of tablet 00:00: 00:00 mouth 3 [place] 00 :00 (three) Medical times Branch daily as needed for Itching. pantoprazol 2018-05- No [id number] 40mg Take 1 [facility] e 40 mg EC 07-18 tablet by ity of tablet 00:00: 00:00 mouth [place] 00 :00 daily. Medical Branch lisinopril 2018-05- No [id number] 20mg Take 1 [facility] 20 mg 07-18 tablet by ity of tablet 00:00: 00:00 mouth [place] 00 :00 daily. Medical Branch foLIC acid 2018-05- No [id number] 1mg Take 1 [facility] 1 mg tablet 07-18 tablet by it y of 00:00: 00:00 mouth [place] 00 :00 daily. Medical Branch foLIC acid 2018-05- No [id number] 1mg Take 1 [facility] 1 mg tablet 07-18 tablet by it y of 00:00: 00:00 mouth [place] 00 :00 daily. Medical Branch doxycycline Yes [id number] 100mg Take 1 [facility] 100 mg 8-29 tablet by ity of tablet 00:00: mouth 2 [place] 00 (two) Medical times Branch daily. doxycycline Yes [id number] 100mg Take 1 [facility] 100 mg 8-29 tablet by ity of tablet 00:00: mouth 2 (two) Medical times Branch daily. doxycycline 2018- Yes [id number] 100mg Take 1 [facility] 100 mg 8-29 tablet by ity of tablet 00:00: mouth 2 (two) Medical times Branch daily. doxycycline 2018- Yes [id number] 100mg Take 1 [facility] 100 mg 8-29 tablet by ity of tablet 00:00: mouth 2 [place] 00 (two) Medical times Branch daily. doxycycline 2018- Yes [id number] 100mg Take 1 [facility] 100 mg 8-29 tablet by ity of tablet 00:00: mouth 2 00 (two) Medical times Branch daily. doxycycline Yes [id number] 100mg Take 1 [facility] 100 mg 8-29 tablet by ity of tablet 00:00: mouth 2 [place] (two) Medical times Branch daily. doxycycline Yes [id number] 100mg Take 1 [facility] 100 mg 8-29 tablet by ity of tablet 00:00: mouth 2 [place] (two) Medical times Branch daily. doxycycline Yes [id number] 100mg Take 1 [facility] 100 mg 8-29 tablet by ity of tablet 00:00: mouth 2 [place] (two) Medical times Branch daily. doxycycline Yes [id number] 100mg Take 1 [facility] 100 mg 8-29 tablet by ity of tablet 00:00: mouth 2 [place] (two) Medical times Branch daily. doxycycline Yes [id number] 100mg Take 1 [facility] 100 mg 8-29 tablet by ity of tablet 00:00: mouth 2 [place] (two) Medical times Branch daily. doxycycline 2020- No [id number] 100mg Take 1 [facility] 100 mg 8-29 05-19 tablet by [facility] tablet 00:00: 00:00 mouth 2 [place] 00 :00 (two) Medical times Branch daily. doxycycline 2020- No [id number] 100mg Take 1 [facility] 100 mg 8-29 05-19 tablet by [facility] of tablet 00:00: 00:00 mouth 2 [place] 00 :00 (two) Medical times Branch daily. spironolact Yes [id number] 25mg Take 1 [facility] one 25 mg 8-07 tablet by [facility] o f tablet 00:00: mouth 2 [place] 00 (two) Medical times Branch daily. spironolact Yes [id number] 25mg Take 1 [facility] one 25 mg 8-07 tablet by [facility] o f tablet 00:00: mouth (two) Medical times Branch daily. spironolact 2018-0 Yes [id number] 25mg Take 1 [facility] one 25 mg 8-07 tablet by [facility] o f tablet 00:00: mouth 2 (two) Medical times Branch daily. spironolact 2018- Yes [id number] 25mg Take 1 [facility] one 25 mg 8-07 tablet by [facility] o f tablet 00:00: mouth (two) Medical times Branch daily. spironolact Yes [id number] 25mg Take 1 [facility] one 25 mg 8-07 tablet by [facility] o f tablet 00:00: mouth (two) Medical times Branch daily. spironolact Yes [id number] 25mg Take 1 [facility] one 25 mg 8-07 tablet by [facility] o f tablet 00:00: mouth (two) Medical times Branch daily. spironolact Yes [id number] 25mg Take 1 [facility] one 25 mg 8-07 tablet by [facility] o f tablet 00:00: mouth (two) Medical times Branch daily. spironolact Yes [id number] 25mg Take 1 [facility] one 25 mg 8-07 tablet by [facility] o f tablet 00:00: mouth (two) Medical times Branch daily. spironolact Yes [id number] 25mg Take 1 [facility] one 25 mg 8-07 tablet by [facility] o f tablet 00:00: mouth (two) Medical times Branch daily. spironolact Yes [id number] 25mg Take 1 [facility] one 25 mg 8-07 tablet by [facility] o f tablet 00:00: mouth (two) Medical times Branch daily. ALPRAZolam 2018- Yes [id number] 1mg Take 1 [facility] 1 mg tablet 7-22 tablet by [facility] of 00:00: mouth 2 (two) Medical times Branch daily. Prn anxiety carvedilol 2018- Yes [id number] 3.125mg Take 1 [facility] 3.125 mg 7-22 tablet by [facility] of tablet 00:00: mouth 2 [place] 00 (two) Medical times Branch daily with meals. foLIC acid 2018- Yes [id number] 1mg Take 1 [facility] 1 mg tablet 7-22 tablet by [facility] of 00:00: mouth [place] 00 daily. Medical Branch furosemide 2018- Yes [id number] 40mg Take 1 [facility] 40 mg 7-22 tablet by [facility] of tablet 00:00: mouth [place] 00 daily. Medical Branch hydrOXYzine 2018- Yes [id number] 50mg Take 1 [facility] 50 mg 7-22 tablet by [facility] of tablet 00:00: mouth 3 [place] 00 (three) Medical times Branch daily as needed for Itching. metFORMIN 2018- Yes [id number] 500mg Take 1 [facility] 500 mg 7-22 tablet by [facility] of tablet 00:00: mouth 2 [place] 00 (two) Medical times Branch daily with meals. pantoprazol 2018- Yes [id number] 40mg Take 1 [facility] e 40 mg EC 7-22 tablet by [facility] of tablet 00:00: mouth [place] 00 daily. Medical Branch clobetasol Yes [id number] Apply to [facility] 0.05 % 7-22 area(s) 2 [facility] of cream 00:00: (two) [place] 00 times Medical daily. Branch triamcinolo Yes [id number] Apply to [facility] ne 7-22 affected [facility] of acetonide 00:00: area(s) 2 [place] 0.1 % cream 00 (two) Medical times Branch daily. ALPRAZolam Yes [id number] 1mg Take 1 [facility] 1 mg tablet 7-22 tablet by [facility] of 00:00: mouth 2 [place] (two) Medical times Branch daily. Prn anxiety carvedilol 2018- Yes [id number] 3.125mg Take 1 [facility] 3.125 mg 7-22 tablet by [facility] of tablet 00:00: mouth 2 [place] 00 (two) Medical times Branch daily with meals. foLIC acid 2018- Yes [id number] 1mg Take 1 [facility] 1 mg tablet 7-22 tablet by [facility] of 00:00: mouth [place] 00 daily. Medical Branch furosemide Yes [id number] 40mg Take 1 [facility] 40 mg 7-22 tablet by [facility] of tablet 00:00: mouth [place] 00 daily. Medical Branch hydrOXYzine Yes [id number] 50mg Take 1 [facility] 50 mg 7-22 tablet by [facility] of tablet 00:00: mouth 3 (three) Medical times Branch daily as needed for Itching. metFORMIN 2018- Yes [id number] 500mg Take 1 [facility] 500 mg 7-22 tablet by [facility] of tablet 00:00: mouth 2 (two) Medical times Branch daily with meals. pantoprazol 2018- Yes [id number] 40mg Take 1 [facility] e 40 mg EC 7-22 tablet by [facility] of tablet 00:00: mouth [place] 00 daily. Medical Branch clobetasol 2018- Yes [id number] Apply to [facility] 0.05 % 7-22 area(s) 2 [facility] of cream 00:00: (two) [place] 00 times Medical daily. Branch triamcinolo Yes [id number] Apply to [facility] ne 7-22 affected ity of acetonide 00:00: area(s) 2 [place] 0.1 % cream 00 (two) Medical times Branch daily. ALPRAZolam 2018- Yes [id number] 1mg Take 1 [facility] 1 mg tablet 7-22 tablet by ity of 00:00: mouth 2 (two) Medical times Branch daily. Prn anxiety carvedilol 2018- Yes [id number] 3.125mg Take 1 [facility] 3.125 mg 7-22 tablet by [facility] of tablet 00:00: mouth 2 (two) Medical times Branch daily with meals. foLIC acid 2018-0 Yes [id number] 1mg Take 1 [facility] 1 mg tablet 7-22 tablet by ity of 00:00: mouth 00 daily. Medical Branch furosemide 2018- Yes [id number] 40mg Take 1 [facility] 40 mg 7-22 tablet by [facility] of tablet 00:00: mouth [place] 00 daily. Medical Branch hydrOXYzine 2018- Yes [id number] 50mg Take 1 [facility] 50 mg 7-22 tablet by [facility] of tablet 00:00: mouth 3 00 (three) Medical times Branch daily as needed for Itching. metFORMIN 2018- Yes [id number] 500mg Take 1 [facility] 500 mg 7-22 tablet by [facility] of tablet 00:00: mouth 2 (two) Medical times Branch daily with meals. pantoprazol 2018- Yes [id number] 40mg Take 1 [facility] e 40 mg EC 7-22 tablet by [facility] of tablet 00:00: mouth [place] 00 daily. Medical Branch clobetasol 2018- Yes [id number] Apply to [facility] 0.05 % 7-22 area(s) 2 [facility] of cream 00:00: (two) [place] 00 times Medical daily. Branch triamcinolo Yes [id number] Apply to [facility] ne 7-22 affected ity of acetonide 00:00: area(s) 2 [place] 0.1 % cream 00 (two) Medical times Branch daily. ALPRAZolam Yes [id number] 1mg Take 1 [facility] 1 mg tablet 7-22 tablet by ity of 00:00: mouth 2 (two) Medical times Branch daily. Prn anxiety carvedilol 2018- Yes [id number] 3.125mg Take 1 [facility] 3.125 mg 7-22 tablet by [facility] of tablet 00:00: mouth 2 (two) Medical times Branch daily with meals. foLIC acid 2018- Yes [id number] 1mg Take 1 [facility] 1 mg tablet 7-22 tablet by ity of 00:00: mouth 00 daily. Medical Branch furosemide 2018-0 Yes [id number] 40mg Take 1 [facility] 40 mg 7-22 tablet by [facility] of tablet 00:00: mouth 00 daily. Medical Branch hydrOXYzine 0 Yes [id number] 50mg Take 1 [facility] 50 mg 7-22 tablet by [facility] of tablet 00:00: mouth 3 (three) Medical times Branch daily as needed for Itching. metFORMIN Yes [id number] 500mg Take 1 [facility] 500 mg 7-22 tablet by [facility] of tablet 00:00: mouth 2 (two) Medical times Branch daily with meals. pantoprazol 2018-0 Yes [id number] 40mg Take 1 [facility] e 40 mg EC 7-22 tablet by [facility] of tablet 00:00: mouth [place] 00 daily. Medical Branch clobetasol 2018- Yes [id number] Apply to [facility] 0.05 % 7-22 area(s) 2 [facility] of cream 00:00: (two) [place] 00 times Medical daily. Branch triamcinolo Yes [id number] Apply to [facility] ne 7-22 affected ity of acetonide 00:00: area(s) 2 [place] 0.1 % cream 00 (two) Medical times Branch daily. ALPRAZolam 2018- Yes [id number] 1mg Take 1 [facility] 1 mg tablet 7-22 tablet by ity of 00:00: mouth 2 (two) Medical times Branch daily. Prn anxiety carvedilol Yes [id number] 3.125mg Take 1 [facility] 3.125 mg 7-22 tablet by it[facility] of tablet 00:00: mouth 2 (two) Medical times Branch daily with meals. foLIC acid Yes [id number] 1mg Take 1 [facility] 1 mg tablet 7-22 tablet by ity of 00:00: mouth 00 daily. Medical Branch hydrOXYzine Yes [id number] 50mg Take 1 [facility] 50 mg 7-22 tablet by [facility] of tablet 00:00: mouth 3 (three) Medical times Branch daily as needed for Itching. metFORMIN Yes [id number] 500mg Take 1 [facility] 500 mg 7-22 tablet by [facility] of tablet 00:00: mouth 2 (two) Medical times Branch daily with meals. pantoprazol Yes [id number] 40mg Take 1 [facility] e 40 mg EC 7-22 tablet by [facility] of tablet 00:00: mouth 00 daily. Medical Branch clobetasol Yes [id number] Apply to [facility] 0.05 % 7-22 area(s) 2 [facility] of cream 00:00: (two) times Medical daily. Branch triamcinolo Yes [id number] Apply to [facility] ne 7-22 affected ity of acetonide 00:00: area(s) 2 [place] 0.1 % cream 00 (two) Medical times Branch daily. ALPRAZolam Yes [id number] 1mg Take 1 [facility] 1 mg tablet 7-22 tablet by ity of 00:00: mouth 2 (two) Medical times Branch daily. Prn anxiety carvedilol 2018- Yes [id number] 3.125mg Take 1 [facility] 3.125 mg 7-22 tablet by [facility] of tablet 00:00: mouth 2 (two) Medical times Branch daily with meals. foLIC acid Yes [id number] 1mg Take 1 [facility] 1 mg tablet 7-22 tablet by ity of 00:00: mouth 00 daily. Medical Branch hydrOXYzine Yes [id number] 50mg Take 1 [facility] 50 mg 7-22 tablet by [facility] of tablet 00:00: mouth 3 (three) Medical times Branch daily as needed for Itching. metFORMIN 2018- Yes [id number] 500mg Take 1 [facility] 500 mg 7-22 tablet by [facility] of tablet 00:00: mouth 2 (two) Medical times Branch daily with meals. pantoprazol Yes [id number] 40mg Take 1 [facility] e 40 mg EC 7-22 tablet by [facility] of tablet 00:00: mouth [place] 00 daily. Medical Branch clobetasol 2018- Yes [id number] Apply to [facility] 0.05 % 7-22 area(s) 2 [facility] of cream 00:00: (two) [place] 00 times Medical daily. Branch triamcinolo Yes [id number] Apply to [facility] ne 7-22 affected ity of acetonide 00:00: area(s) 2 [place] 0.1 % cream 00 (two) Medical times Branch daily. ALPRAZolam Yes [id number] 1mg Take 1 [facility] 1 mg tablet 7-22 tablet by ity of 00:00: mouth 2 (two) Medical times Branch daily. Prn anxiety carvedilol 2018- Yes [id number] 3.125mg Take 1 [facility] 3.125 mg 7-22 tablet by ity of tablet 00:00: mouth 2 (two) Medical times Branch daily with meals. foLIC acid 2018- Yes [id number] 1mg Take 1 [facility] 1 mg tablet 7-22 tablet by ity of 00:00: mouth 00 daily. Medical Branch hydrOXYzine Yes [id number] 50mg Take 1 [facility] 50 mg 7-22 tablet by ity of tablet 00:00: mouth 3 (three) Medical times Branch daily as needed for Itching. metFORMIN 2018- Yes [id number] 500mg Take 1 [facility] 500 mg 7-22 tablet by it[facility] of tablet 00:00: mouth 2 (two) Medical times Branch daily with meals. pantoprazol Yes [id number] 40mg Take 1 [facility] e 40 mg EC 7-22 tablet by ity of tablet 00:00: mouth 00 daily. Medical Branch clobetasol 2018- Yes [id number] Apply to [facility] 0.05 % 7-22 area(s) 2 ity of cream 00:00: (two) [place] 00 times Medical daily. Branch triamcinolo Yes [id number] Apply to [facility] ne 7-22 affected ity of acetonide 00:00: area(s) 2 [place] 0.1 % cream 00 (two) Medical times Branch daily. ALPRAZolam Yes [id number] 1mg Take 1 [facility] 1 mg tablet 7-22 tablet by ity of 00:00: mouth 2 [place] (two) Medical times Branch daily. Prn anxiety carvedilol Yes [id number] 3.125mg Take 1 [facility] 3.125 mg 7-22 tablet by ity of tablet 00:00: mouth 2 (two) Medical times Branch daily with meals. foLIC acid Yes [id number] 1mg Take 1 [facility] 1 mg tablet 7-22 tablet by ity of 00:00: mouth 00 daily. Medical Branch hydrOXYzine Yes [id number] 50mg Take 1 [facility] 50 mg 7-22 tablet by ity of tablet 00:00: mouth 3 (three) Medical times Branch daily as needed for Itching. metFORMIN Yes [id number] 500mg Take 1 [facility] 500 mg 7-22 tablet by ity of tablet 00:00: mouth 2 (two) Medical times Branch daily with meals. pantoprazol Yes [id number] 40mg Take 1 [facility] e 40 mg EC 7-22 tablet by ity of tablet 00:00: mouth 00 daily. Medical Branch clobetasol Yes [id number] Apply to [facility] 0.05 % 7-22 area(s) 2 ity of cream 00:00: (two) [place] 00 times Medical daily. Branch triamcinolo Yes [id number] Apply to [facility] ne 7-22 affected ity of acetonide 00:00: area(s) 2 [place] 0.1 % cream (two) Medical times Branch daily. ALPRAZolam Yes [id number] 1mg Take 1 [facility] 1 mg tablet 7-22 tablet by ity of 00:00: mouth 2 (two) Medical times Branch daily. Prn anxiety carvedilol Yes [id number] 3.125mg Take 1 [facility] 3.125 mg 7-22 tablet by ity of tablet 00:00: mouth 2 (two) Medical times Branch daily with meals. foLIC acid Yes [id number] 1mg Take 1 [facility] 1 mg tablet 7-22 tablet by ity of 00:00: mouth [place] 00 daily. Medical Branch hydrOXYzine Yes [id number] 50mg Take 1 [facility] 50 mg 7-22 tablet by ity of tablet 00:00: mouth 3 (three) Medical times Branch daily as needed for Itching. metFORMIN 2018- Yes [id number] 500mg Take 1 [facility] 500 mg 7-22 tablet by ity of tablet 00:00: mouth 2 (two) Medical times Branch daily with meals. pantoprazol 2018- Yes [id number] 40mg Take 1 [facility] e 40 mg EC 7-22 tablet by ity of tablet 00:00: mouth 00 daily. Medical Branch clobetasol Yes [id number] Apply to [facility] 0.05 % 7-22 area(s) 2 ity of cream 00:00: (two) 00 times Medical daily. Branch triamcinolo Yes [id number] Apply to [facility] ne 7-22 affected ity of acetonide 00:00: area(s) 2 [place] 0.1 % cream 00 (two) Medical times Branch daily. ALPRAZolam Yes [id number] 1mg Take 1 [facility] 1 mg tablet 7-22 tablet by ity of 00:00: mouth 2 (two) Medical times Branch daily. Prn anxiety carvedilol Yes [id number] 3.125mg Take 1 [facility] 3.125 mg 7-22 tablet by ity of tablet 00:00: mouth 2 (two) Medical times Branch daily with meals. foLIC acid 2018- Yes [id number] 1mg Take 1 [facility] 1 mg tablet 7-22 tablet by ity of 00:00: mouth 00 daily. Medical Branch hydrOXYzine Yes [id number] 50mg Take 1 [facility] 50 mg 7-22 tablet by ity of tablet 00:00: mouth 3 (three) Medical times Branch daily as needed for Itching. metFORMIN Yes [id number] 500mg Take 1 [facility] 500 mg 7-22 tablet by [facility]y of tablet 00:00: mouth 2 (two) Medical times Branch daily with meals. pantoprazol 2019- Yes [id number] 40mg Take 1 [facility] e 40 mg EC 7-22 tablet by it[facility] of tablet 00:00: mouth [place] 00 daily. Medical Branch clobetasol Yes [id number] Apply to [facility] 0.05 % 7-22 area(s) 2 ity of cream 00:00: (two) [place] 00 times Medical daily. Branch triamcinolo Yes [id number] Apply to [facility] ne 7-22 affected ity of acetonide 00:00: area(s) 2 [place] 0.1 % cream 00 (two) Medical times Branch daily. ALPRAZolam 2018- Yes [id number] 1mg Take 1 [facility] 1 mg tablet 7-22 tablet by ity of 00:00: mouth 2 (two) Medical times Branch daily. Prn anxiety carvedilol 2018- Yes [id number] 3.125mg Take 1 [facility] 3.125 mg 7-22 tablet by ity of tablet 00:00: mouth 2 (two) Medical times Branch daily with meals. foLIC acid 2018- Yes [id number] 1mg Take 1 [facility] 1 mg tablet 7-22 tablet by ity of 00:00: mouth 00 daily. Medical Branch hydrOXYzine 2018- Yes [id number] 50mg Take 1 [facility] 50 mg 7-22 tablet by ity of tablet 00:00: mouth 3 (three) Medical times Branch daily as needed for Itching. metFORMIN 2018- Yes [id number] 500mg Take 1 [facility] 500 mg 7-22 tablet by ity of tablet 00:00: mouth 2 (two) Medical times Branch daily with meals. pantoprazol 2018- Yes [id number] 40mg Take 1 [facility] e 40 mg EC 7-22 tablet by ity of tablet 00:00: mouth 00 daily. Medical Branch clobetasol Yes [id number] Apply to [facility] 0.05 % 7-22 area(s) 2 ity of cream 00:00: (two) [place] 00 times Medical daily. Branch triamcinolo Yes [id number] Apply to [facility] ne 7-22 affected ity of acetonide 00:00: area(s) 2 [place] 0.1 % cream 00 (two) Medical times Branch daily. ALPRAZolam 2018- Yes [id number] 1mg Take 1 [facility] 1 mg tablet 7-22 tablet by ity of 00:00: mouth 2 (two) Medical times Branch daily. Prn anxiety carvedilol 2018- Yes [id number] 3.125mg Take 1 [facility] 3.125 mg 7-22 tablet by ity of tablet 00:00: mouth 2 (two) Medical times Branch daily with meals. foLIC acid Yes [id number] 1mg Take 1 [facility] 1 mg tablet 7-22 tablet by ity of 00:00: mouth 00 daily. Medical Branch hydrOXYzine 2018- Yes [id number] 50mg Take 1 [facility] 50 mg 7-22 tablet by ity of tablet 00:00: mouth 3 (three) Medical times Branch daily as needed for Itching. metFORMIN 2018- Yes [id number] 500mg Take 1 [facility] 500 mg 7-22 tablet by ity of tablet 00:00: mouth 2 (two) Medical times Branch daily with meals. pantoprazol Yes [id number] 40mg Take 1 [facility] e 40 mg EC 7-22 tablet by ity of tablet 00:00: mouth daily. Medical Branch clobetasol Yes [id number] Apply to [facility] 0.05 % 7-22 area(s) 2 ity of cream 00:00: (two) 00 times Medical daily. Branch triamcinolo Yes [id number] Apply to [facility] ne 7-22 affected ity of acetonide 00:00: area(s) 2 [place] 0.1 % cream 00 (two) Medical times Branch daily. ALPRAZolam Yes [id number] 1mg Take 1 [facility] 1 mg tablet 7-22 tablet by ity of 00:00: mouth 2 (two) Medical times Branch daily. Prn anxiety carvedilol 2018- Yes [id number] 3.125mg Take 1 [facility] 3.125 mg 7-22 tablet by ity of tablet 00:00: mouth 2 (two) Medical times Branch daily with meals. foLIC acid Yes [id number] 1mg Take 1 [facility] 1 mg tablet 7-22 tablet by ity of 00:00: mouth [place] 00 daily. Medical Branch furosemide Yes [id number] 40mg Take 1 [facility] 40 mg 7-22 tablet by ity of tablet 00:00: mouth [place] 00 daily. Medical Branch hydrOXYzine Yes [id number] 50mg Take 1 [facility] 50 mg 7-22 tablet by ity of tablet 00:00: mouth 3 00 (three) Medical times Branch daily as needed for Itching. metFORMIN Yes [id number] 500mg Take 1 [facility] 500 mg 7-22 tablet by ity of tablet 00:00: mouth 2 [place] 00 (two) Medical times Branch daily with meals. pantoprazol Yes [id number] 40mg Take 1 [facility] e 40 mg EC 7-22 tablet by ity of tablet 00:00: mouth [place] 00 daily. Medical Branch spironolact Yes [id number] 25mg Take 1 [facility] one 25 mg 7-22 tablet by ity o f tablet 00:00: mouth 2 [place] 00 (two) Medical times Branch daily. clobetasol Yes [id number] Apply to [facility] 0.05 % 7-22 area(s) 2 ity of cream 00:00: (two) [place] 00 times Medical daily. Branch triamcinolo Yes [id number] Apply to [facility] ne 7-22 affected ity of acetonide 00:00: area(s) 2 [place] 0.1 % cream 00 (two) Medical times Branch daily. furosemide 2019- No [id number] 40mg Take 1 [facility] 40 mg 7-22 08-26 tablet by [facility]y of tablet 00:00: 00:00 mouth [place] 00 :00 daily. Medical Branch furosemide 2019- No [id number] 40mg Take 1 [facility] 40 mg 7-22 08-26 tablet by ity of tablet 00:00: 00:00 mouth [place] 00 :00 daily. Medical Branch spironolact 2019- No [id number] 25mg Take 1 [facility] one 25 mg 7-22 08-07 tablet by ity of tablet 00:00: 00:00 mouth 2 [place] 00 :00 (two) Medical times Branch daily. Pitavastati Yes 2mg Take 2 mg [facility] nivers n (LIVALO) 6-18 by mouth ity o f 2 mg Tab 16:18: daily. [address] Pitavastati 0 Yes 2mg Take 2 mg U nivers n (LIVALO) 6-18 by mouth ity o f 2 mg Tab 16:18: daily. [address] Pitavastati 0 Yes 2mg Take 2 mg U nivers n (LIVALO) 6-18 by mouth ity o f 2 mg Tab 16:18: daily. [address] Pitavastati 0 Yes 2mg Take 2 mg U nivers n (LIVALO) 6-18 by mouth ity o f 2 mg Tab 16:18: daily. [address] Pitavastati 0 Yes 2mg Take 2 mg U nivers n (LIVALO) 6-18 by mouth ity o f 2 mg Tab 16:18: daily. [address] Pitavastati 0 Yes 2mg Take 2 mg U nivers n (LIVALO) 6-18 by mouth ity o f 2 mg Tab 16:18: daily. [address] Pitavastati 0 Yes 2mg Take 2 mg U nivers n (LIVALO) 6-18 by mouth ity o f 2 mg Tab 16:18: daily. [address] Pitavastati 0 Yes 2mg Take 2 mg U nivers n (LIVALO) 6-18 by mouth ity o f 2 mg Tab 16:18: daily. [address] Pitavastati 0 Yes 2mg Take 2 mg U nivers n (LIVALO) 6-18 by mouth ity o f 2 mg Tab 16:18: daily. [address] Pitavastati 0 Yes 2mg Take 2 mg U nivers n (LIVALO) 6-18 by mouth ity o f 2 mg Tab 16:18: daily. [address] Pitavastati 0 Yes 2mg Take 2 mg U nivers n (LIVALO) 6-18 by mouth ity o f 2 mg Tab 16:18: daily. [address] Pitavastati 0 Yes 2mg Take 2 mg U nivers n (LIVALO) 6-18 by mouth ity o f 2 mg Tab 16:18: daily. [address] Pitavastati 0 Yes 2mg Take 2 mg U nivers n (LIVALO) 6-18 by mouth ity o f 2 mg Tab 16:18: daily. [place] 51 Medical Branch traMADOL 2019-0 Yes [id number] 50mg Take 1 Un epifanio (ULTRAM) 50 6-18 tablet by ity of mg tablet 00:00: mouth [place] 00 every 6 Medical (six) Branch hours as needed for Pain (scale 4-6). traMADOL 2019-0 Yes [id number] 50mg Take 1 [facility] epifanio (ULTRAM) 50 6-18 tablet by ity of mg tablet 00:00: mouth [place] 00 every 6 Medical (six) Branch hours as needed for Pain (scale 4-6). traMADOL 2019-0 Yes [id number] 50mg Take 1 Un epifanio (ULTRAM) 50 6-18 tablet by ity of mg tablet 00:00: mouth [place] 00 every 6 Medical (six) Branch hours as needed for Pain (scale 4-6). traMADOL 2019-0 Yes [id number] 50mg Take 1 Un epifanio (ULTRAM) 50 6-18 tablet by ity of mg tablet 00:00: mouth [place] 00 every 6 Medical (six) Branch hours as needed for Pain (scale 4-6). traMADOL 2019-0 Yes [id number] 50mg Take 1 Un epifanio (ULTRAM) 50 6-18 tablet by ity of mg tablet 00:00: mouth [place] 00 every 6 Medical (six) Branch hours as needed for Pain (scale 4-6). traMADOL 2019-0 Yes [id number] 50mg Take 1 Un epifanio (ULTRAM) 50 6-18 tablet by ity of mg tablet 00:00: mouth [place] 00 every 6 Medical (six) Branch hours as needed for Pain (scale 4-6). traMADOL 2019-0 Yes [id number] 50mg Take 1 Un epifanio (ULTRAM) 50 6-18 tablet by ity of mg tablet 00:00: mouth [place] 00 every 6 Medical (six) Branch hours as needed for Pain (scale 4-6). traMADOL 2019-0 Yes [id number] 50mg Take 1 Un epifanio (ULTRAM) 50 6-18 tablet by ity of mg tablet 00:00: mouth [place] 00 every 6 Medical (six) Branch hours as needed for Pain (scale 4-6). traMADOL 2019-0 Yes [id number] 50mg Take 1 Un epifanio (ULTRAM) 50 6-18 tablet by ity of mg tablet 00:00: mouth [place] 00 every 6 Medical (six) Branch hours as needed for Pain (scale 4-6). traMADOL 2019-0 Yes [id number] 50mg Take 1 Un epifanio (ULTRAM) 50 6-18 tablet by ity of mg tablet 00:00: mouth [place] 00 every 6 Medical (six) Branch hours as needed for Pain (scale 4-6). traMADOL 2019-0 Yes [id number] 50mg Take 1 Un epifanio (ULTRAM) 50 6-18 tablet by ity of mg tablet 00:00: mouth [place] 00 every 6 Medical (six) Branch hours as needed for Pain (scale 4-6). traMADOL 2019-0 Yes [id number] 50mg Take 1 Un epifanio (ULTRAM) 50 6-18 tablet by ity of mg tablet 00:00: mouth [place] 00 every 6 Medical (six) Branch hours as needed for Pain (scale 4-6). traMADOL 2019-0 Yes [id number] 50mg Take 1 Un epifanio (ULTRAM) 50 6-18 tablet by ity of mg tablet 00:00: mouth [place] 00 every 6 Medical (six) Branch hours as needed for Pain (scale 4-6). traMADOL 2019-0 Yes [id number] 50mg Take 1 Un epifanio (ULTRAM) 50 6-18 tablet by ity of mg tablet 00:00: mouth [place] 00 every 6 Medical (six) Branch hours as needed for Pain (scale 4-6). traMADOL 2019-0 Yes [id number] 50mg Take 1 Un epifanio (ULTRAM) 50 6-18 tablet by ity of mg tablet 00:00: mouth [place] 00 every 6 Medical (six) Branch hours as needed for Pain (scale 4-6). traMADOL 2019-0 Yes [id number] 50mg Take 1 Un epifanio (ULTRAM) 50 6-18 tablet by ity of mg tablet 00:00: mouth [place] 00 every 6 Medical (six) Branch hours as needed for Pain (scale 4-6). traMADOL 2019-0 Yes [id number] 50mg Take 1 Un epifanio (ULTRAM) 50 6-18 tablet by ity of mg tablet 00:00: mouth [place] 00 every 6 Medical (six) Branch hours as needed for Pain (scale 4-6). traMADOL Yes [id number] 50mg Take 1 Un epifanio (ULTRAM) 50 6-18 tablet by ity of mg tablet 00:00: mouth [place] 00 every 6 Medical (six) Branch hours as needed for Pain (scale 4-6). traMADOL 2018- Yes [id number] 50mg Take 1 Un epifanio (ULTRAM) 50 6-18 tablet by ity of mg tablet 00:00: mouth [place] 00 every 6 Medical (six) Branch hours as needed for Pain (scale 4-6). traMADOL Yes [id number] 50mg Take 1 Un epifanio (ULTRAM) 50 6-18 tablet by ity of mg tablet 00:00: mouth [place] 00 every 6 Medical (six) Branch hours as needed for Pain (scale 4-6). traMADOL 2020- No [id number] 50mg Take 1 U nivers (ULTRAM) 50 6-18 05-19 tablet by it y of mg tablet 00:00: 00:00 mouth [place] 00 :00 every 6 Medical (six) Branch hours as needed for Pain (scale 4-6). traMADOL 2020- No [id number] 50mg Take 1 U nivers (ULTRAM) 50 6-18 05-19 tablet by it y of mg tablet 00:00: 00:00 mouth [place] 00 :00 every 6 Medical (six) Branch hours as needed for Pain (scale 4-6). folic acid Yes 1mg QD Take [address] [facility] (FOLVITE) 1 6-13 by mouth [facility] tablet 00:00: daily . [facility] al 00 [place] folic acid [id number] Yes 1mg QD Take [address] [facility] [address] [facility] (FOLVITE) 1 6-13 by [facility] tablet 00:00: daily . Medic al 00 [place] folic acid 2019-0 Yes 1mg QD Take [address] [facility] [address] [facility] (FOLVITE) 1 6-13 by [facility] tablet 00:00: daily . Medic al 00 [place] folic acid 2019-0 Yes 1mg QD Take [address] [facility] [address] [facility] (FOLVITE) 1 6-13 by mouth [facility] tablet 00:00: daily . Medic al 00 [place] folic acid 2018-0 Yes 1mg QD Take [address] [facility] (FOLVITE) 1 6-13 by mouth [facility] tablet 00:00: daily . Medic al [place] folic acid 0 Yes 1mg QD Take [address] [facility] (FOLVITE) 1 6-13 by mouth [facility] tablet 00:00: daily . Medic al 00 [place] folic acid Yes 1mg QD Take [address] [facility] [address] [facility] (FOLVITE) 1 6-13 by mouth [facility] tablet 00:00: daily . Medic al [facility] folic acid 0 2022- No 1mg QD Take [address] [facility] (FOLVITE) 1 6-13 -28 by mouth Ismael es MG tablet 00:00: 00:00 daily . Medi jeevan 00 :00 [place] lactulose 2018-0 Yes TK [address] [facility] (CHRONULAC) 5-04 PO TID [facility] gram/15 00:00: Medical mL solution 00 [facility] lactulose 2018-0 Yes TK [address] [facility] (CHRONULAC) 5-04 PO TID [facility] gram/15 00:00: Medical mL solution 00 Lewis lactulose 0 Yes TK [address] [facility] (CHRONULAC) 5-04 PO TID [facility] gram/15 00:00: Medical mL solution 00 [facility] lactulose 2018-0 Yes TK [address] [facility] (CHRONULAC) 5-04 PO TID [facility] 10 gram/15 00:00: Medical mL solution 00 Lewis lactulose 2019-0 Yes TK [address] [facility] (CHRONULAC) 5-04 PO TID [facility] 10 gram/15 00:00: Medical mL solution 00 [facility] lactulose 2019-0 Yes TK [address] [facility] (CHRONULAC) 5-04 PO TID [facility] 10 gram/15 00:00: Medical mL solution 00 [facility] lactulose 2018-0 Yes TK [address] [facility] (CHRONULAC) 5-04 PO TID [facility] 10 gram/15 00:00: Medical mL solution 00 [facility] lactulose 2018-0 2022- No TK [address] [facility] (CHRONULAC) 5-04 03-28 PO TID [facility] 10 gram/15 00:00: 00:00 Medica l mL solution 00 :00 [facility] blood sugar 2018-0 Yes [id number] Use BID, Univers diagnostic 4-23 DX E11.9 ity o f (ACCU-CHEK 00:00: (Brand [place] GUIDE) 00 upon Medical strip insurance Branch approval) Lancets 2019- Yes [id number] Use BID, U nivers Misc 4-23 DX E11.9 ity of 00:00: (Brand [place] 00 upon Medical insurance Branch approval) Blood-Gluco 2019-0 Yes [id number] Use BID, Univers se Meter 4-23 DX E11.9 ity of (ACCU-CHEK 00:00: (Brand [place] GUIDE 00 upon Medical GLUCOSE insurance Branch METER) Misc approval) ACCU-CHEK GUIDE blood sugar 2019- Yes [id number] Use BID, Univers diagnostic 4-23 DX E11.9 ity o f (ACCU-CHEK 00:00: (Brand [place] GUIDE) 00 upon Medical strip insurance Branch approval) Lancets 2019- Yes [id number] Use BID, U nivers Misc 4-23 DX E11.9 ity of 00:00: (Brand [place] 00 upon Medical insurance Branch approval) Blood-Gluco 2019- Yes [id number] Use BID, Univers se Meter 4-23 DX E11.9 ity of (ACCU-CHEK 00:00: (Brand [place] GUIDE 00 upon Medical GLUCOSE insurance Branch METER) Misc approval) ACCU-CHEK GUIDE blood sugar 2019- Yes [id number] Use BID, Univers diagnostic 4-23 DX E11.9 ity o f (ACCU-CHEK 00:00: (Brand [place] GUIDE) 00 upon Medical strip insurance Branch approval) Lancets 2019- Yes [id number] Use BID, U nivers Misc 4-23 DX E11.9 ity of 00:00: (Brand [place] 00 upon Medical insurance Branch approval) Blood-Gluco 2019- Yes [id number] Use BID, Univers se Meter 4-23 DX E11.9 ity of (ACCU-CHEK 00:00: (Brand [place] GUIDE 00 upon Medical GLUCOSE insurance Branch METER) Misc approval) ACCU-CHEK GUIDE blood sugar 2019-0 Yes [id number] Use BID, Univers diagnostic 4-23 DX E11.9 ity o f (ACCU-CHEK 00:00: (Brand [place] GUIDE) 00 upon Medical strip insurance Branch approval) Lancets 2019- Yes [id number] Use BID, U nivers Misc 4-23 DX E11.9 ity of 00:00: (Brand [place] 00 upon Medical insurance Branch approval) Blood-Gluco 2019- Yes [id number] Use BID, Univers se Meter 4-23 DX E11.9 ity of (ACCU-CHEK 00:00: (Brand [place] GUIDE 00 upon Medical GLUCOSE insurance Branch METER) Misc approval) ACCU-CHEK GUIDE blood sugar 2019- Yes [id number] Use BID, Univers diagnostic 4-23 DX E11.9 ity o f (ACCU-CHEK 00:00: (Brand [place] GUIDE) 00 upon Medical strip insurance Branch approval) Lancets 2019- Yes [id number] Use BID, U nivers Misc 4-23 DX E11.9 ity of 00:00: (Brand [place] 00 upon Medical insurance Branch approval) Blood-Gluco 2018- Yes [id number] Use BID, Univers se Meter 4-23 DX E11.9 ity of (ACCU-CHEK 00:00: (Brand [place] GUIDE 00 upon Medical GLUCOSE insurance Branch METER) Misc approval) ACCU-CHEK GUIDE blood sugar 2018- Yes [id number] Use BID, Univers diagnostic 4-23 DX E11.9 ity o f (ACCU-CHEK 00:00: (Brand [place] GUIDE) 00 upon Medical strip insurance Branch approval) Lancets 2019- Yes [id number] Use BID, U nivers Misc 4-23 DX E11.9 ity of 00:00: (Brand [place] 00 upon Medical insurance Branch approval) Blood-Gluco 2018- Yes [id number] Use BID, Univers se Meter 4-23 DX E11.9 ity of (ACCU-CHEK 00:00: (Brand [place] GUIDE 00 upon Medical GLUCOSE insurance Branch METER) Misc approval) ACCU-CHEK GUIDE blood sugar 2019- Yes [id number] Use BID, Univers diagnostic 4-23 DX E11.9 ity o f (ACCU-CHEK 00:00: (Brand [place] GUIDE) 00 upon Medical strip insurance Branch approval) Lancets 2019- Yes [id number] Use BID, U nivers Misc 4-23 DX E11.9 ity of 00:00: (Brand [place] 00 upon Medical insurance Branch approval) Blood-Gluco 2018- Yes [id number] Use BID, Univers se Meter 4-23 DX E11.9 ity of (ACCU-CHEK 00:00: (Brand [place] GUIDE 00 upon Medical GLUCOSE insurance Branch METER) Misc approval) ACCU-CHEK GUIDE blood sugar 2019- Yes [id number] Use BID, Univers diagnostic 4-23 DX E11.9 ity o f (ACCU-CHEK 00:00: (Brand [place] GUIDE) 00 upon Medical strip insurance Branch approval) Lancets 2019- Yes [id number] Use BID, U nivers Misc 4-23 DX E11.9 ity of 00:00: (Brand [place] 00 upon Medical insurance Branch approval) Blood-Gluco 2019- Yes [id number] Use BID, Univers se Meter 423 DX E11.9 ity of (ACCU-CHEK 00:00: (Brand [place] GUIDE 00 upon Medical GLUCOSE insurance Branch METER) Misc approval) ACCU-CHEK GUIDE blood sugar 2018- Yes [id number] Use BID, Univers diagnostic -23 DX E11.9 ity o f (ACCU-CHEK 00:00: (Brand [place] GUIDE) 00 upon Medical strip insurance Branch approval) Lancets 2019- Yes [id number] Use BID, U nivers Misc 4-23 DX E11.9 ity of 00:00: (Brand [place] 00 upon Medical insurance Branch approval) Blood-Gluco 2019- Yes [id number] Use BID, Univers se Meter 423 DX E11.9 ity of (ACCU-CHEK 00:00: (Brand [place] GUIDE 00 upon Medical GLUCOSE insurance Branch METER) Misc approval) ACCU-CHEK GUIDE blood sugar 2019- Yes [id number] Use BID, Univers diagnostic 4-23 DX E11.9 ity o f (ACCU-CHEK 00:00: (Brand [place] GUIDE) 00 upon Medical strip insurance Branch approval) Lancets 2019- Yes [id number] Use BID, U nivers Misc 4-23 DX E11.9 ity of 00:00: (Brand [place] 00 upon Medical insurance Branch approval) Blood-Gluco 2019- Yes [id number] Use BID, Univers se Meter 423 DX E11.9 ity of (ACCU-CHEK 00:00: (Brand [place] GUIDE 00 upon Medical GLUCOSE insurance Branch METER) Misc approval) ACCU-CHEK GUIDE blood sugar 2019- Yes [id number] Use BID, Univers diagnostic 4-23 DX E11.9 ity o f (ACCU-CHEK 00:00: (Brand [place] GUIDE) 00 upon Medical strip insurance Branch approval) Lancets 2019- Yes [id number] Use BID, U nivers Misc -23 DX E11.9 ity of 00:00: (Brand [place] 00 upon Medical insurance Branch approval) Blood-Gluco 2018- Yes [id number] Use BID, Univers se Meter -23 DX E11.9 ity of (ACCU-CHEK 00:00: (Brand [place] GUIDE 00 upon Medical GLUCOSE insurance Branch METER) Misc approval) ACCU-CHEK GUIDE Blood-Gluco 2018- Yes [id number] Use BID, Univers se Meter -23 DX E11.9 ity of (ACCU-CHEK 00:00: (Brand [place] GUIDE 00 upon Medical GLUCOSE insurance Branch METER) Misc approval) ACCU-CHEK GUIDE Blood-Gluco 2018- Yes [id number] Use BID, Univers se Meter -23 DX E11.9 ity of (ACCU-CHEK 00:00: (Brand [place] GUIDE 00 upon Medical GLUCOSE insurance Branch METER) Misc approval) ACCU-CHEK GUIDE Blood-Gluco 2018- Yes [id number] Use BID, Univers se Meter -23 DX E11.9 ity of (ACCU-CHEK 00:00: (Brand [place] GUIDE 00 upon Medical GLUCOSE insurance Branch METER) Misc approval) ACCU-CHEK GUIDE Blood-Gluco 2018- Yes [id number] Use BID, Univers se Meter -23 DX E11.9 ity of (ACCU-CHEK 00:00: (Brand [place] GUIDE 00 upon Medical GLUCOSE insurance Branch METER) Misc approval) ACCU-CHEK GUIDE Blood-Gluco 2018- Yes [id number] Use BID, Univers se Meter -23 DX E11.9 ity of (ACCU-CHEK 00:00: (Brand [place] GUIDE 00 upon Medical GLUCOSE insurance Branch METER) Misc approval) ACCU-CHEK GUIDE Blood-Gluco 2018- Yes [id number] Use BID, Univers se Meter -23 DX E11.9 ity of (ACCU-CHEK 00:00: (Brand [place] GUIDE 00 upon Medical GLUCOSE insurance Branch METER) Misc approval) ACCU-CHEK GUIDE Blood-Gluco 2018-0 Yes [id number] Use BID, Univers se Meter 23 DX E11.9 ity of (ACCU-CHEK 00:00: (Brand [place] GUIDE 00 upon Medical GLUCOSE insurance Branch METER) Misc approval) ACCU-CHEK GUIDE Blood-Gluco Yes [id number] Use BID, Univers se Meter 23 DX E11.9 ity of (ACCU-CHEK 00:00: (Brand [place] GUIDE 00 upon Medical GLUCOSE insurance Branch METER) Misc approval) ACCU-CHEK GUIDE blood sugar Yes [id number] Use BID, Univers diagnostic 09-18 DX E11.9 ity o f (ACCU-CHEK 00:00: (Brand [place] GUIDE) 00 upon Medical strip insurance Branch approval) Lancets Yes [id number] Use BID, U nivers Misc 09-18 DX E11.9 ity of 00:00: (Brand [place] 00 upon Medical insurance Branch approval) Blood-Gluco Yes [id number] Use BID, Univers se Meter 09-18 DX E11.9 ity of (ACCU-CHEK 00:00: (Brand [place] GUIDE 00 upon Medical GLUCOSE insurance Branch METER) Misc approval) ACCU-CHEK GUIDE Blood-Gluco 2020- No [id number] Use BID, Univers se Meter 09-18 05-19 DX E11.9 ity of (ACCU-CHEK 00:00: 00:00 ([place] 00 :00 upon Medical GLUCOSE insurance Branch METER) Misc approval) ACCU-CHEK GUIDE Blood-Gluco 2018-2020- No [id number] Use BID, Univers se Meter 09-18 05-19 DX E11.9 ity of (ACCU-CHEK 00:00: 00:00 ([place] 00 :00 upon Medical GLUCOSE insurance Branch METER) Misc approval) ACCU-CHEK GUIDE lactulose Yes [id number] 15mL Take 15 mL [facility] 10 gram/15 4-08 by mouth 3 ity of mL solution 00:00: (three) Bry[facility] as 00 times Medical daily. Branch lactulose Yes [id number] 15mL Take 15 mL [facility] 10 gram/15 4-08 by mouth 3 ity of mL solution 00:00: (three) [facility] as 00 times Medical daily. Branch lactulose Yes [id number] 15mL Take 15 mL [facility] 10 gram/15 4-08 by mouth 3 ity of mL solution 00:00: (three) [place] as 00 times Medical daily. Branch lactulose 2019-0 Yes [id number] 15mL Take 15 mL [facility] 10 gram/15 4-08 by mouth 3 ity of mL solution 00:00: (three) [place] as 00 times Medical daily. Branch lactulose 2019-0 Yes [id number] 15mL Take 15 mL [facility] 10 gram/15 4-08 by mouth 3 ity of mL solution 00:00: (three) [place] as 00 times Medical daily. Branch lactulose 2019-0 Yes [id number] 15mL Take 15 mL [facility] 10 gram/15 4-08 by mouth 3 ity of mL solution 00:00: (three) [place] as 00 times Medical daily. Branch lactulose 2019-0 Yes [id number] 15mL Take 15 mL [facility] 10 gram/15 4-08 by mouth 3 ity of mL solution 00:00: (three) [place] as 00 times Medical daily. Branch lactulose 2019-0 Yes [id number] 15mL Take 15 mL [facility] 10 gram/15 4-08 by mouth 3 ity of mL solution 00:00: (three) [place] as 00 times Medical daily. Branch lactulose 2019-0 Yes [id number] 15mL Take 15 mL [facility] 10 gram/15 4-08 by mouth 3 ity of mL solution 00:00: (three) [place] as 00 times Medical daily. Branch lactulose 2019-0 Yes [id number] 15mL Take 15 mL [facility] 10 gram/15 4-08 by mouth 3 ity of mL solution 00:00: (three) [place] as 00 times Medical daily. Branch lactulose 2019-0 Yes [id number] 15mL Take 15 mL [facility] 10 gram/15 4-08 by mouth 3 ity of mL solution 00:00: (three) [place] as 00 times Medical daily. Branch lactulose 2019-0 Yes [id number] 15mL Take 15 mL [facility] 10 gram/15 4-08 by mouth 3 ity of mL solution 00:00: (three) [place] as 00 times Medical daily. Branch lactulose 2019-0 Yes [id number] 15mL Take 15 mL [facility] 10 gram/15 4-08 by mouth 3 ity of mL solution 00:00: (three) [facility] as 00 times Medical daily. Branch furosemide 2019-0 Yes [id number] 40mg Take 1 [facility] 40 mg 2-12 tablet by ity of tablet 00:00: mouth [place] 00 every Medical morning Branch and evening. furosemide 2019-0 Yes [id number] 40mg Take 1 [facility] 40 mg 2-12 tablet by ity of tablet 00:00: mouth [place] 00 every Medical morning Branch and evening. furosemide 2019-0 Yes [id number] 40mg Take 1 [facility] 40 mg 2-12 tablet by ity of tablet 00:00: mouth [place] 00 every Medical morning Branch and evening. furosemide 2019-0 Yes [id number] 40mg Take 1 [facility] 40 mg 2-12 tablet by ity of tablet 00:00: mouth [place] 00 every Medical morning Branch and evening. furosemide 2019-0 Yes [id number] 40mg Take 1 [facility] 40 mg 2-12 tablet by ity of tablet 00:00: mouth [place] 00 every Medical morning Branch and evening. furosemide 2019-0 Yes [id number] 40mg Take 1 [facility] 40 mg 2-12 tablet by ity of tablet 00:00: mouth [place] 00 every Medical morning Branch and evening. furosemide 2019-0 Yes [id number] 40mg Take 1 [facility] 40 mg 2-12 tablet by ity of tablet 00:00: mouth [place] 00 every Medical morning Branch and evening. furosemide 2019-0 Yes [id number] 40mg Take 1 [facility] 40 mg 2-12 tablet by ity of tablet 00:00: mouth [place] 00 every Medical morning Branch and evening. furosemide 2019-0 Yes [id number] 40mg Take 1 [facility] 40 mg 2-12 tablet by ity of tablet 00:00: mouth [place] 00 every Medical morning Branch and evening. furosemide 2019-0 Yes [id number] 40mg Take 1 [facility] 40 mg 2-12 tablet by ity of tablet 00:00: mouth [place] 00 every Medical morning Branch and evening. furosemide 2019-0 Yes [id number] 40mg Take 1 [facility] 40 mg 2-12 tablet by ity of tablet 00:00: mouth [place] 00 every Medical morning Branch and evening. furosemide 2019-0 Yes [id number] 40mg Take 1 [facility] 40 mg 2-12 tablet by ity of tablet 00:00: mouth [place] 00 every Medical morning Branch and evening. furosemide 2019-0 Yes [id number] 40mg Take 1 [facility] 40 mg 2-12 tablet by ity of tablet 00:00: mouth [place] 00 every Medical morning Branch and evening. metFORMIN 2019-0 2020- No 500mg Take [address] [facility] [address] [facility] (GLUCOPHAGE 2-12 04-06 mg by [facility] ) 500 MG 00:00: 00:00 mouth 2 Medic al tablet 00 :00 (two) Center times daily with breakfast and dinner . lisinopril 2018- Yes [id number] 20mg Take 1 [facility] 20 mg 2-06 tablet by ity of tablet 00:00: mouth [place] 00 daily. Medical Branch lisinopril 2018- Yes [id number] 20mg Take 1 [facility] 20 mg 2-06 tablet by ity of tablet 00:00: mouth [place] 00 daily. Medical Branch lisinopril 2018- Yes [id number] 20mg Take 1 [facility] 20 mg 2-06 tablet by ity of tablet 00:00: mouth [place] 00 daily. Medical Branch lisinopril 2018- Yes [id number] 20mg Take 1 [facility] 20 mg 2-06 tablet by ity of tablet 00:00: mouth [place] 00 daily. Medical Branch lisinopril 2018- Yes [id number] 20mg Take 1 [facility] 20 mg 2-06 tablet by ity of tablet 00:00: mouth [place] 00 daily. Medical Branch lisinopril 2018- Yes [id number] 20mg Take 1 [facility] 20 mg 2-06 tablet by ity of tablet 00:00: mouth [place] 00 daily. Medical Branch lisinopril 0 Yes [id number] 20mg Take 1 [facility] 20 mg 2-06 tablet by ity of tablet 00:00: mouth [place] 00 daily. Medical Branch lisinopril 2018-0 Yes [id number] 20mg Take 1 [facility] 20 mg 2-06 tablet by ity of tablet 00:00: mouth [place] 00 daily. Medical Branch lisinopril 2018-0 Yes [id number] 20mg Take 1 [facility] 20 mg 2-06 tablet by ity of tablet 00:00: mouth [place] 00 daily. Medical Branch lisinopril 2019-0 Yes [id number] 20mg Take 1 [facility] 20 mg 2-06 tablet by ity of tablet 00:00: mouth [place] 00 daily. [facility] Branch lisinopril 2018-0 Yes [id number] 20mg Take 1 Univers 20 mg 2-06 tablet by ity of tablet 00:00: mouth [place] 00 daily. [facility] Branch lisinopril 2018-0 Yes [id number] 20mg Take 1 Univers 20 mg 2-06 tablet by ity of tablet 00:00: mouth [place] 00 daily. [facility] Branch lisinopril 2018- Yes [id number] 20mg Take 1 Univers 20 mg 2-06 tablet by ity of tablet 00:00: mouth [place] 00 daily. [facility] Branch carvedilol Yes 6.25mg Take 6.[address] [facility] (COREG) 2-06 mg by [facility] 3.125 MG 00:00: mouth 2 Medica l tablet 00 (two) Center times daily with breakfast and dinner . lisinopril 2018-0 Yes 20mg QD Take [address] [facility] (PRINIVIL,Z 2-06 by mouth Luke s ESTRIL) 20 00:00: daily . Medi jeevan MG tablet 00 Lewis carvedilol Yes 6.25mg Take 6.[address] [facility] (COREG) 2-06 mg by [facility] 3.125 MG 00:00: mouth 2 Medica l tablet 00 (two) Center times daily with breakfast and dinner . lisinopril 2018-0 Yes 20mg QD Take [address] [facility] (PRINIVIL,Z 2-06 by mouth Luke s ESTRIL) 20 00:00: daily . Medi jeevan MG tablet 00 Lewis carvedilol Yes 6.25mg Take 6.[address] [facility] (COREG) 2-06 mg by [facility] 3.125 MG 00:00: mouth 2 Medica l tablet 00 (two) Center times daily with breakfast and dinner . lisinopril 2018-0 Yes 20mg QD Take [address] [facility] (PRINIVIL,Z 2-06 by mouth Luke s ESTRIL) 20 00:00: daily . Medi jeevan MG tablet 00 Lewis carvedilol 0 Yes 6.25mg Take 6.[address] [facility] (COREG) 2-06 mg by [facility] 3.125 MG 00:00: mouth 2 Medica l tablet 00 (two) Center times daily with breakfast and dinner . lisinopril 2019-0 Yes 20mg QD Take [address] [facility] (PRINIVIL,Z 2-06 by mouth Luke s ESTRIL) 20 00:00: daily . Medi jeevan MG tablet 00 Lewis carvedilol 0 Yes 6.25mg Take 6.[address] [facility] (COREG) 2-06 mg by [facility] 3.125 MG 00:00: mouth 2 Medica l tablet 00 (two) Center times daily with breakfast and dinner . lisinopril Yes 20mg QD Take [address] [facility] (PRINIVIL,Z 2-06 by mouth Luke s ESTRIL) 20 00:00: daily . Medi jeevan MG tablet 00 Center carvedilol Yes 6.25mg Take 6.[address] [facility] (COREG) 2-06 mg by [facility] 3.125 MG 00:00: mouth 2 Medica l tablet 00 (two) Center times daily with breakfast and dinner . lisinopril Yes 20mg QD Take [address] [facility] (PRINIVIL,Z 2-06 by mouth Luke s ESTRIL) 20 00:00: daily . Medi jeevan MG tablet 00 Center carvedilol Yes 6.25mg Take 6.[address] [facility] (COREG) 2-06 mg by [facility] 3.125 MG 00:00: mouth 2 Medica l tablet 00 (two) Center times daily with breakfast and dinner . lisinopril Yes 20mg QD Take [address] [facility] (PRINIVIL,Z 2-06 by mouth Luke s ESTRIL) 20 00:00: daily . Medi jeevan MG tablet 00 Center carvedilol 2022- No 6.25mg Take 6.25 [facility] [...] 40 MG 00 Center tablet pantoprazol 0 2022- No 40mg QD Take [address] [facility] e -01 29-28 by mouth [facility] (PROTONIX) 00:00: 00:00 daily . Med ical 40 MG 00 :00 Center tablet hydrOXYzine 2017-05 Yes 50mg Take [address] [facility] (ATARAX) 50 1-14 by mouth Luke s MG tablet 00:00: as needed Med ical 00 . Lewis hydrOXYzine 2017-05 Yes 50mg Take [address] [facility] (ATARAX) 50 1-14 by mouth Luke s MG tablet 00:00: as needed Med ical 00 . Lewis hydrOXYzine 2017-05 Yes 50mg Take [address] [facility] (ATARAX) 50 1-14 by mouth Luke s MG tablet 00:00: as needed Med ical 00 . Lewis hydrOXYzine 2017-05 Yes 50mg Take [address] [facility] (ATARAX) 50 1-14 by mouth Luke s MG tablet 00:00: as needed Med ical 00 . Lewis hydrOXYzine 2017-05 Yes 50mg Take [address] [facility] (ATARAX) 50 1-14 by mouth Luke s MG tablet 00:00: as needed Med ical 00 . Lewis hydrOXYzine 2017-05 Yes 50mg Take [address] [facility] (ATARAX) 50 1-14 by mouth Luke s MG tablet 00:00: as needed Med ical 00 . Lewis hydrOXYzine 2017-05 Yes 50mg Take [address] [facility] (ATARAX) 50 1-14 by mouth Luke s MG tablet 00:00: as needed Med ical 00 . Center hydrOXYzine 2017-05- No 50mg Take [address] [facility] (ATARAX) 50 1-14 03-28 by mouth Ismael es MG tablet 00:00: 00:00 as needed Me dical 00 :00 . Center traMADol 2015-0 Yes Recurrent 50mg Take 1 [facility] [...] 6 hours as needed for Pain. traMADol 2015-0 Yes Recurrent 50mg Take 1 [facility] (ULTRAM) 50 7-19 umbilical tablet by Health mg tablet 00:00: hernia mouth 00 every 6 hours as needed for Pain. traMADol 2015-0 Yes Recurrent 50mg Take 1 [facility] (ULTRAM) 50 7-19 umbilical tablet by Health mg tablet 00:00: hernia mouth 00 every 6 hours as needed for Pain. traMADol 2015-0 Yes Recurrent 50mg Take 1 [facility] (ULTRAM) 50 7-19 umbilical tablet by Health mg tablet 00:00: hernia mouth 00 every 6 hours as needed for Pain. traMADol 2016-0 Yes Recurrent 50mg Take 1 [facility] (ULTRAM) 50 7-19 umbilical tablet by Health mg tablet 00:00: hernia mouth 00 every 6 hours as needed for Pain. No known No [facility] No [facility] medications [facility] Vital Signs Vital Name Observation Time Observation [...] 2021-12-26 150 mm[Hg] University of pressure 20:38:00 [facility] Diastolic blood 2021-12-26 79 mm[Hg] University o f pressure 20:38:00 [facility] Heart rate 2021-12-26 104 /min University of 20:38:00 [facility] Body temperature 2021-12-26 38.06 Corrina University of 20:38:00 [facility] Respiratory rate 2021-12-26 18 /min University of 20:38:00 [facility] Body height 2021-12-26 167.6 cm University of 20:38:00 [facility] Body weight 2021-12-26 108.863 kg University of 20:38:00 [facility] BMI 2021-12-26 38.74 kg/m2 University of 20:38:00 [facility] Oxygen saturation 2021-12-26 99 /min University of in Arterial blood 20:38:00 [facility] by Pulse oximetry [place] HEIGHT 2021-12-22 167.6 cm 10:36:00 WEIGHT 2021-12-22 [...] 2021-04-01 119 mm[Hg] University of pressure 20:00:00 [facility] Diastolic blood 2021-04-01 65 mm[Hg] University o f pressure 20:00:00 [facility] Heart rate 2021-04-01 57 /min University of 20:00:00 [facility] Respiratory rate 2021-04-01 16 /min University of 20:00:00 [facility] Oxygen saturation 2021-04-01 100 /min Simultaneous University of in Arterial blood 20:00:00 filing. User may [facility] by Pulse oximetry not have seen Branch previous data. Body temperature 2021-04-01 36.22 Corrina University of 18:07:00 [facility] Body height 2021-04-01 166 cm University of 18:07:00 [facility] Body weight 2021-04-01 104.327 kg University of 18:07:00 [facility] BMI 2021-04-01 37.86 kg/m2 University of 18:07:00 [facility] HEIGHT 2021-03-12 167.6 cm 07:20:00 WEIGHT [...] 2020-08-19 132 mm[Hg] University of pressure 14:00:00 [facility] Diastolic blood 2020-08-19 77 mm[Hg] University o f pressure 14:00:00 [facility] Heart rate 2020-08-19 71 /min University of 14:00:00 [facility] Branch Respiratory rate 2020-08-19 18 /min University of 14:00:00 [facility] Oxygen saturation 2020-08-19 99 /min University of in Arterial blood 14:00:00 [place] Medi jeevan by Pulse oximetry Branch Body temperature 2020-08-19 36.94 Corrina University of 12:32:00 [facility] Body weight 2020-08-19 106.142 kg University of 12:32:00 [facility] BMI 2020-08-19 37.77 kg/m2 University of 12:32:00 [facility] Systolic blood 2020-08-19 132 mm[Hg] University of pressure 14:00:00 [facility] Branch Diastolic blood 2020-08-19 77 mm[Hg] University o f pressure 14:00:00 [facility] Heart rate 2020-08-19 71 /min University of 14:00:00 [facility] Respiratory rate 2020-08-19 18 /min University of 14:00:00 [facility] Oxygen saturation 2020-08-19 99 /min University of in Arterial blood 14:00:00 [place] Medi jeevan by Pulse oximetry Branch Body temperature 2020-08-19 36.94 Corrina University of 12:32:00 [facility] Body weight 2020-08-19 106.142 kg University of 12:32:00 [facility] BMI 2020-08-19 37.77 kg/m2 University of 12:32:00 [facility] Systolic blood 2020-06-26 120 mm[Hg] University of pressure 03:00:00 [facility] Branch Diastolic blood 2020-06-26 103 mm[Hg] University o f pressure 03:00:00 [facility] Heart rate 2020-06-26 83 /min University of 03:00:00 [facility] Branch Respiratory rate 2020-06-26 20 /min University of 03:00:00 [facility] Oxygen saturation 2020-06-26 99 /min University of in Arterial blood 03:00:00 [place] Medi jeevan by Pulse oximetry Branch Body temperature 2020-06-25 36.44 Corrina University of 23:03:00 [facility] Body height 2020-06-25 167.6 cm University of 23:03:00 [facility] Body weight 2020-06-25 105.235 kg University of 23:03:00 [facility] BMI 2020-06-25 37.45 kg/m2 University of 23:03:00 [facility] Systolic blood 2020-06-26 120 mm[Hg] University of pressure 03:00:00 [facility] Diastolic blood 2020-06-26 103 mm[Hg] University o f pressure 03:00:00 [facility] Heart rate 2020-06-26 83 /min University of 03:00:00 [facility] Respiratory rate 2020-06-26 20 /min University of 03:00:00 [facility] Oxygen saturation 2020-06-26 99 /min [facility] in Arterial blood 03:00:00 [facility] by Pulse oximetry [place] Body temperature 2020-06-25 36.44 Corrina Echo [place] 23:03:00 [facility] Body height 2020-06-25 167.6 cm [facility] 23:03:00 [facility] Body weight 2020-06-25 105.235 kg [facility] 23:03:00 [facility] BMI 2020-06-25 37.45 kg/m2 [facility] 23:03:00 [facility] HEIGHT 2020-03-13 167.6 cm 10:38:00 WEIGHT 2020-03-13 108.41 kg 10:38:00 HEIGHT 2020-03-13 167.6 cm 10:38:00 WEIGHT 2020-03-13 108.41 kg 10:38:00 HEIGHT 2019-12-24 167.6 cm 00:00:00 WEIGHT 2019-12-24 103 kg 00:00:00 Systolic blood 2019-01-21 131 mm[Hg] [facility] pressure 21:03:00 [facility] Diastolic blood 2019-01-21 79 mm[Hg] University o f pressure 21:03:00 [facility] Heart rate 2019-01-21 73 /min [facility] 21:03:00 [facility] Body temperature 2019-01-21 37.06 Corrina [facility] 21:03:00 [facility] Respiratory rate 2019-01-21 18 /min [facility] 21:03:00 [facility] Body weight 2019-01-21 103.103 kg [facility] 21:03:00 [facility] BMI 2019-01-21 36.69 kg/m2 [facility] 21:03:00 [facility] Oxygen saturation 2019-01-21 98 /min University of in Arterial blood 21:03:00 [facility] by Pulse oximetry Branch Systolic blood 2019-01-21 131 mm[Hg] [facility] pressure 21:03:00 [facility] Diastolic blood 2019-01-21 79 mm[Hg] [facility] o f pressure 21:03:00 [facility] Heart rate 2019-01-21 73 /min [facility] 21:03:00 [facility] Body temperature 2019-01-21 37.06 Corrina [facility] 21:03:00 [facility] Respiratory rate 2019-01-21 18 /min University 21:03:00 [facility] Body weight 2019-01-21 103.103 kg [facility] 21:03:00 [facility] BMI 2019-01-21 36.69 kg/m2 [facility] 21:03:00 [facility] Oxygen saturation 2019-01-21 98 /min [facility] in Arterial blood 21:03:00 [facility] by Pulse oximetry Branch Systolic blood 2022-09-15 125 mm[Hg] [facility] pressure 10:37:00 [facility] Diastolic blood 2022-09-15 75 mm[Hg] [facility] pressure 10:37:00 [facility] Heart rate 2022-09-15 82 /min [facility] 10:37:00 [facility] Body temperature 2022-09-[address] [facility] 10:37:00 [facility] Respiratory rate 2022-09-15 18 /min [facility] 10:37:00 [facility] Body height 2022-09-[address] [facility] 10:37:00 [facility] Body weight 2022-09-[address] [facility] 10:37:00 [facility] BMI 2022-09-15 37.09 kg/m2 [facility] 10:37:00 [facility] Oxygen saturation 2022-09-15 99 /min [facility] in Arterial blood 10:37:00 [facility] nter by Pulse oximetry Systolic blood 2022-08-02 118 mm[Hg] [facility] pressure 16:38:00 Hospital Diastolic blood 2022-08-02 62 mm[Hg] [facility] pressure 16:38:00 Hospital Heart rate 2022-08-02 65 /min [facility] 16:38:00 Hospital Respiratory rate 2022-08-02 18 /min [facility] 16:38:00 Hospital Body height 2022-08-02 167.6 cm [facility] 16:38:00 [facility] Body weight 2022-08-02 112.492 kg [facility] 16:38:00 [facility] BMI 2022-08-02 40.03 kg/m2 [facility] 16:38:00 [facility] Systolic blood 2022-06-01 135 mm[Hg] [facility] pressure 09:55:00 [facility] Diastolic blood 2022-06-01 77 mm[Hg] [facility] pressure 09:55:00 [facility] Heart rate 2022-06-01 66 /min [facility] 09:55:00 [facility] Body temperature 2022-06-[address] [facility] 09:55:00 [facility] Respiratory rate 2022-06-01 18 /min [facility] 09:55:00 [facility] Body height 2022-06-[address] [facility] 09:55:00 [facility] Body weight 2022-06-[address] [facility] 09:55:00 [facility] BMI 2022-06-01 39.45 kg/m2 [facility] 09:55:00 [facility] Oxygen saturation 2022-06-01 97 /min [facility] Arterial blood 09:55:00 Medical Ce nter by Pulse oximetry Systolic blood 2021-12-22 150 mm[Hg] [facility] pressure 10:36:00 Medical Center Diastolic blood 2021-12-22 76 mm[Hg] [facility] pressure 10:36:00 [facility] Heart rate 2021-12-22 75 /min [facility] 10[facility]36:00 [facility] Body temperature 2021-12-[address] [facility] 10:36:00 [facility] Respiratory rate 2021-12-22 18 /min [facility] 10:36:00 [facility] Body height 2021-12-[address] [facility] 10:36:00 [facility] Body weight 2021-12-[address] [facility] 10:36:00 [facility] BMI 2021-12-22 39.92 kg/m2 [facility] 10:36:00 [facility] Center Oxygen saturation 2021-12-22 98 /min [facility] Arterial blood 10:36:00 Medical Ce [facility]ter by Pulse oximetry Systolic blood 2021-03-12 107 mm[Hg] [facility] pressure 14:30:00 [facility] Diastolic blood 2021-03-12 58 mm[Hg] [facility] pressure 14:30:00 [facility] Heart rate 2021-03-12 61 /[facility] Respiratory rate 2021-03-12 18 /min [facility] s 13:30:00 [facility] Oxygen saturation 2021-03-12 94 /min [facility] in Arterial blood 13:30:00 Medical nter by Pulse oximetry Body temperature 2021-03-12 36.56 [facility] 12:[facility]00 [facility] Body height 2021-03-12 167.6 cm [facility] 07:20: [facility] Body weight 2021-03-12 102.059 kg [facility] 07:20: [facility] BMI 2021-03-12 36.32 kg/m2 [facility] 07:20:00 [facility] Procedures Procedure Date / Time Performing Clinician Source Performed BILIRUBIN, DIRECT 2022-09-17 09:46:00 [facility] COMPREHENSIVE METABOLIC 2022-09-17 09:46:00 [facility] CBC W/PLT COUNT & AUTO 2022-09-17 09:46:00 [facility] MAGNESIUM 2022-09-17 09:46:00 [facility] PHOSPHORUS 2022-09-17 09:46:00 [facility] TACROLIMUS LEVEL 2022-09-17 09:46:00 [facility] CBC W/PLT COUNT & AUTO 2022-09-17 09:46:00 [facility] BILIRUBIN, DIRECT 2022-09-15 09:59:00 [facility] COMPREHENSIVE METABOLIC 2022-09-15 09:59:00 [facility] CBC W/PLT COUNT & AUTO 2022-09-15 09:59:00 [facility] MAGNESIUM 2022-09-15 09:59:00 Xenia [facility] PHOSPHORUS 2022-09-15 09:59:00 Xenia [facility] TACROLIMUS LEVEL 2022-09-15 09:59:00 Xenia [facility] HEPATITIS B PCR, 2022-09-15 09:59:00 Xenia [facility] QUANTITATIVE Lewis HEPATITIS C PCR, 2022-09-15 09:59:00 Xenia [facility] HIV-1 PCR, QUANTITATIVE 2022-09-15 09:59:00 Xenia [facility] CBC W/PLT COUNT & AUTO 2022-09-15 09:59:00 Xenia [facility] POCT-GLUCOSE METER 2022-09-11 07:30:00 Xenia [facility] TACROLIMUS LEVEL 2022-09-11 05:16:00 [facility] HEPATIC FUNCTION PANEL 2022-09-11 05:16:00 [facility] MAGNESIUM 2022-09-11 05:16:00 [facility] PHOSPHORUS 2022-09-11 05:16:00 [facility] BASIC METABOLIC PANEL 2022-09-11 05:16:00 [facility] CBC W/PLT COUNT & AUTO 2022-09-11 05:16:00 El [facility] PROTHROMBIN TIME/INR 2022-09-11 05:16:00 El [facility] APTT 2022-09-11 05:16:00 [facility] W/PLT COUNT & AUTO 2022-09-11 05:16:00 El [facility] POCT-GLUCOSE METER 2022-09-10 20:24:00 [place], Shamar [facility] POCT-GLUCOSE METER 2022-09-10 16:13:00 [place] [facility] POCT-GLUCOSE METER 2022-09-10 11:05:00 [facility] POCT-GLUCOSE METER 2022-09-10 08:19:00 [facility] TACROLIMUS LEVEL 2022-09-10 05:36:00 [facility] HEPATIC FUNCTION PANEL 2022-09-10 05:36:00 [facility] MAGNESIUM 2022-09-10 05:36:00 [facility] PHOSPHORUS 2022-09-10 05:36:00 [facility] BASIC METABOLIC PANEL 2022-09-10 05:36:00 [facility] CBC W/PLT COUNT & AUTO 2022-09-10 05:36:00 [facility] PROTHROMBIN TIME/INR 2022-09-10 05:36:00 [facility] APTT 2022-09-10 05:36:00 [facility] GAMMA GLUTAMYL TRANSFERASE 2022-09-10 05:36:00 [facility] (GGT) [facility] CBC W/PLT COUNT & AUTO 2022-09-10 05:36:00 [facility] DIFFERENTIAL [facility] POCT-GLUCOSE METER 2022-09-09 22:02:00 [place] [facility] POCT-GLUCOSE METER 2022-09-09 17:21:00 [place] [facility] POCT-GLUCOSE METER 2022-09-09 12:24:00 [place] [facility] REPORT OF PROCEDURE - 2022-09-09 12:01:09 Osbaldo Irvin [facility] ENDOSCOPY URL Center [place] ERCP 2022-09-09 11:55:00 Osbaldo Irvin [facility] ERCP, WITH SPHINCTEROTOMY 2022-09-09 11:13:00 Osbaldo Irvin [facility] PROCEDURE W/ C-ARM 2022-09-09 11:13:00 Osbaldo Irvin [facility] ENDOSCOPIC RETROGRADE 2022-09-09 11:13:00 Osbaldo Irvin [facility] CHOLANGIOPANCREATOGRAPHY, Center WITH BILE DUCT STENT INSERTION BEDSIDE SPIROMETRY 2022-09-09 09:03:00 Marta Jacobs [facility] POCT-GLUCOSE METER 2022-09-09 08:02:00 Shamar Michaels [facility] TACROLIMUS LEVEL 2022-09-09 06:13:00 [facility] HEPATIC FUNCTION PANEL 2022-09-09 06:13:00 [facility] MAGNESIUM 2022-09-09 06:13:00 [facility] PHOSPHORUS 2022-09-09 06:13:00 [facility] BASIC METABOLIC PANEL 2022-09-09 06:13:00 [facility] CBC W/PLT COUNT & AUTO 2022-09-09 06:13:00 [facility] DIFFERENTIAL [facility] PROTHROMBIN TIME/INR 2022-09-09 06:13:00 El [facility] APTT 2022-09-09 06:13:00 El [facility] GAMMA GLUTAMYL TRANSFERASE 2022-09-09 06:13:00 [facility] (GGT) [facility] CBC W/PLT COUNT & AUTO 2022-09-09 06:13:00 El Nihum [facility] DIFFERENTIAL [facility] POCT-GLUCOSE METER 2022-09-08 21:48:00 Xenia, Shamar [facility] POCT-GLUCOSE METER 2022-09-08 17:14:00 Xenia [facility] PSA 2022-09-08 15:15:00 [facility] RESPIRATORY PANEL 2022-09-08 15:10:00 Nikolai Stella [facility] POCT-GLUCOSE METER 2022-09-08 08:13:00 Shamar Michaels [facility] TACROLIMUS LEVEL 2022-09-08 05:24:00 [facility] HEPATIC FUNCTION PANEL 2022-09-08 05:24:00 [facility] MAGNESIUM 2022-09-08 05:24:00 [facility] PHOSPHORUS 2022-09-08 05:24:00 [facility] BASIC METABOLIC PANEL 2022-09-08 05:24:00 [facility] CBC W/PLT COUNT & AUTO 2022-09-08 05:24:00 [facility] PROTHROMBIN TIME/INR 2022-09-08 05:24:00 [facility] APTT 2022-09-08 05:24:00 [facility] GAMMA GLUTAMYL TRANSFERASE 2022-09-08 05:24:00 [facility] (GGT) [facility] CBC W/PLT COUNT & AUTO 2022-09-08 05:24:00 [facility] POCT-GLUCOSE METER 2022-09-07 21:35:00 Xenia [facility] POCT-GLUCOSE METER 2022-09-07 12:45:00 Xenia [facility] POCT-GLUCOSE METER 2022-09-07 07:27:00 Xenia [facility] TACROLIMUS LEVEL 2022-09-07 06:05:00 [facility] HEPATIC FUNCTION PANEL 2022-09-07 06:05:00 [facility] MAGNESIUM 2022-09-07 06:05:00 [facility] PHOSPHORUS 2022-09-07 06:05:00 [facility] BASIC METABOLIC PANEL 2022-09-07 06:05:00 [facility] CBC W/PLT COUNT & AUTO 2022-09-07 06:05:00 [facility] PROTHROMBIN TIME/INR 2022-09-07 06:05:00 [facility] APTT 2022-09-07 06:05:00 [facility] GAMMA GLUTAMYL TRANSFERASE 2022-09-07 06:05:00 [facility] (GGT) [facility] CBC W/PLT COUNT & AUTO 2022-09-07 06:05:00 [facility] DIFFERENTIAL [facility] POCT-GLUCOSE METER 2022-09-06 23:26:00 Xenia [facility] POCT-GLUCOSE METER 2022-09-06 16:26:00 Xenia [facility] MISCELLANEOUS LAB ORDER 2022-09-06 16:02:00 [facility] TOXICOLOGY SCREEN, SERUM 2022-09-06 16:02:00 [facility] RAPID DRUG SCREEN, URINE 2022-09-06 16:02:00 [facility] POCT-GLUCOSE METER 2022-09-06 12:12:00 Xenia [facility] POCT-GLUCOSE METER 2022-09-06 08:27:00 Shamar Michaels [facility] TACROLIMUS LEVEL 2022-09-06 06:24:00 [facility] HEPATIC FUNCTION PANEL 2022-09-06 06:24:00 [facility] MAGNESIUM 2022-09-06 06:24:00 [facility] PHOSPHORUS 2022-09-06 06:24:00 [facility] BASIC METABOLIC PANEL 2022-09-06 06:24:00 [facility] GAMMA GLUTAMYL TRANSFERASE 2022-09-06 06:24:00 [facility] (GGT) [facility] CBC W/PLT COUNT & AUTO 2022-09-06 06:24:00 [facility] DIFFERENTIAL [facility] PROTHROMBIN TIME/INR 2022-09-06 06:24:00 [facility] APTT 2022-09-06 06:24:00 [facility] CBC W/PLT COUNT & AUTO 2022-09-06 06:24:00 [facility] DIFFERENTIAL [facility] US ABDOMINAL WITH DOPPLER 2022-09-05 23:10:00 [facility] URINE CULTURE 2022-09-05 22:11:00 [facility] URINALYSIS W/ REFLEX URINE 2022-09-05 22:11:00 [facility] C[facility] SPUTUM CULTURE + GRAM 2022-09-05 22:10:00 [facility] STAIN [facility] BLOOD CULTURE 2022-09-05 21:57:00 [facility] SARS-COV2/RT-PCR ([facility] & 2022-09-05 21:46:00 [facility] REF LABS) [facility] CMV PCR, QUANTITATIVE 2022-09-05 21:46:00 [facility] EBV VIRAL LOAD 2022-09-05 21:46:00 [facility] ADENOVIRUS PCR, 2022-09-05 21:46:00 [facility] HEPATIC FUNCTION PANEL 2022-09-05 21:46:00 [facility] PHOSPHORUS 2022-09-05 21:46:00 [facility] GAMMA GLUTAMYL TRANSFERASE 2022-09-05 21:46:00 [facility] (GGT) [facility] B-TYPE NATRIURETIC FACTOR 2022-09-05 21:46:00 [facility] (BNP) [facility] CBC W/PLT COUNT & AUTO 2022-09-05 21:46:00 [facility] DIFFERENTIAL [facility] BASIC METABOLIC PANEL 2022-09-05 21:46:00 [facility] MAGNESIUM 2022-09-05 21:46:00 [facility] PROTHROMBIN TIME/INR 2022-09-05 21:46:00 [facility] APTT 2022-09-05 21:46:00 [facility] CBC W/PLT COUNT & AUTO 2022-09-05 21:46:00 [facility] DIFFERENTIAL [facility] BLOOD CULTURE 2022-09-05 21:44:00 [facility] XR CHEST 1 VIEW PORTABLE / 2022-09-05 19:41:00 Al Christine Yumiko [facility] BEDSIDE [facility] BILIRUBIN, DIRECT 2022-09-05 09:07:00 Shamar Michaels [facility] COMPREHENSIVE METABOLIC 2022-09-05 09:07:00 Shamar Michaels [facility] CBC W/PLT COUNT & AUTO 2022-09-05 09:07:00 Xenia [facility] MAGNESIUM 2022-09-05 09:07:00 [facility] PHOSPHORUS 2022-09-05 09:07:00 [facility] TACROLIMUS LEVEL 2022-09-05 09:07:00 [facility] CBC W/PLT COUNT & AUTO 2022-09-05 09:07:00 [facility] BILIRUBIN, DIRECT 2022-09-01 10:15:00 [facility] COMPREHENSIVE METABOLIC 2022-09-01 10:15:00 [facility] CBC W/PLT COUNT & AUTO 2022-09-01 10:15:00 [facility] MAGNESIUM 2022-09-01 10:15:00 [facility] PHOSPHORUS 2022-09-01 10:15[facility] 2022-09-01 10:15:00 [facility] CBC W/PLT COUNT & AUTO 2022-09-01 10:15:00 [facility] BILIRUBIN, DIRECT 2022-08-29 10:00:00 [facility] COMPREHENSIVE METABOLIC 2022-08-29 10:00:00 [facility] & AUTO 2022-08-29 10:00:00 [facility] MAGNESIUM 2022-08-29 10:00:00 [facility] PHOSPHORUS 2022-08-29 10:00:00 [facility] TACROLIMUS LEVEL 2022-08-29 10:00:00 [facility] CBC W/PLT COUNT & AUTO 2022-08-29 10:00[facility] 2022-08-25 09:47:00 [place], [facility] PHOSPHORUS 2022-08-25 09:47:00 Xenia [facility] MAGNESIUM 2022-08-25 09:47:00 Xenia [facility] CBC W/PLT COUNT & AUTO 2022-08-25 09:47:00 Xenia [facility] COMPREHENSIVE METABOLIC 2022-08-25 09:47:00 [facility] BILIRUBIN, DIRECT 2022-08-25 09:47:00 Xenia [facility] CBC W/PLT COUNT & AUTO 2022-08-25 09:47:00 Xenia [facility] (CELLAVISION MANUAL DIFF) 2022-08-25 09:47:00 [facility] POCT-GLUCOSE METER 2022-08-23 08:24:00 Xenia [facility] TACROLIMUS LEVEL 2022-08-23 06:10:00 Guido [facility] HEPATIC FUNCTION PANEL 2022-08-23 06:10:00 Serkev [facility] PROTHROMBIN TIME/INR 2022-08-23 06:10:00 [facility] BASIC METABOLIC PANEL 2022-08-23 06:10:00 [facility] CBC W/PLT COUNT & AUTO 2022-08-23 06:10:00 [facility] DIFFERENTIAL [facility] PHOSPHORUS 2022-08-23 06:10:00 [facility] MAGNESIUM 2022-08-23 06:10:00 [facility] CBC W/PLT COUNT & AUTO 2022-08-23 06:10:00 [facility] DIFFERENTIAL [facility] XR CHEST 1 VIEW PORTABLE / 2022-08-23 05:05:[address] [facility] POCT-GLUCOSE METER 2022-08-22 22:24:00 Xenia [facility] POCT-GLUCOSE METER 2022-08-22 16:33:00 Xenia [facility] POCT-GLUCOSE METER 2022-08-22 13:01:00 Xenia [facility] POCT-GLUCOSE METER 2022-08-22 09:10[facility]00 [facility] 2022-08-22 04:43:00 [facility] 2022-08-22 04:43:00 Arsenio [facility] PROTHROMBIN TIME/INR 2022-08-22 04:43:00 [facility] IMMUNOGLOBULIN G (IGG) 2022-08-22 04:43:00 [facility] PREALBUMIN 2022-08-22 04:43:00 [facility] TSH/FREE T4 IF INDICATED 2022-08-22 04:43:00 [facility] BASIC METABOLIC PANEL 2022-08-22 04:43:00 [facility] CBC W/PLT COUNT & AUTO 2022-08-22 04:43:00 [facility] PHOSPHORUS 2022-08-22 04:43:00 [facility] MAGNESIUM 2022-08-22 04:43:00 [facility] CBC W/PLT COUNT & AUTO 2022-08-22 04:43:00 [facility] XR CHEST 1 VIEW PORTABLE / 2022-08-22 03:45:00 Alice Solis [facility] PREPARE LEUKO-REDUCED RBC 2022-08-21 23:54:00 Alice Solis [facility] POCT-GLUCOSE METER 2022-08-21 21:00:00 Xenia [facility] POCT-GLUCOSE METER 2022-08-21 17:16:00 Xenia [facility] POCT-GLUCOSE METER 2022-08-21 12:44:00 Xenia [facility] VANCOMYCIN LEVEL, TROUGH 2022-08-21 08:14:00 Kevin Ramirez [facility] POCT-GLUCOSE METER 2022-08-21 08:10:00 Xenia [facility] POCT-GLUCOSE METER 2022-08-21 06:17:00 X[facility] XR CHEST 1 VIEW PORTABLE / 2022-08-21 04:44:00 Alice Solis [facility] CALCIUM, IONIZED 2022-08-21 03:35:00 Serkev [facility] BLOOD GAS, ARTERIAL 2022-08-21 03:35:00 Serenio [facility] TACROLIMUS LEVEL 2022-08-21 03:35:00 [facility] LACTIC ACID, ARTERIAL 2022-08-21 03:35:[facility] PAN[facility] 2022-08-21 03:35[facility]00 [facility]/INR 2022-08-21 03:35:00 [facility] BASIC METABOLIC PANEL 2022-08-21 03:35:00 [facility] CBC W/PLT COUNT & AUTO 2022-08-21 03:35:00 [facility] PHOSPHORUS 2022-08-21 03:35:00 [facility] MAGNESIUM 2022-08-21 03:35:00 [facility] CBC W/PLT COUNT & AUTO 2022-08-21 03:35[facility]00 [facility] POCT-GLUCOSE METER 2022-08-20 23:29:00 [facility] CBC W/PLT COUNT & AUTO 2022-08-20 21:40:00 Jeffrey [facility] DIFFERENTIAL [facility] CBC W/PLT COUNT & AUTO 2022-08-20 21:40:00 Jeffrey [facility] DIFFERENTIAL [facility] POCT-GLUCOSE METER 2022-08-20 17:35:00 Shamar Michaels [facility] TRANSFUSE LEUKO-REDUCED 2022-08-20 15:30:00 Alice Solis [facility] RED BLOOD CELLS [facility] POCT-GLUCOSE METER 2022-08-20 15:28:00 Shamar Michaels [facility] CBC W/PLT COUNT & AUTO 2022-08-20 11:46:00 [facility] POCT-GLUCOSE METER 2022-08-20 11:46:00 Shamar Michaels [facility] CBC W/PLT COUNT & AUTO 2022-08-20 11:46:00 [facility] HEMOGLOBIN A1C 2022-08-20 08:12:00 [facility] XR CHEST 1 VIEW PORTABLE / 2022-08-20 06:04:00 Alice Solis [facility] BEDSIDE [facility] TRANSFUSE LEUKO-REDUCED 2022-08-20 06:00:00 Ana Bonner [facility] RED BLOOD CELLS Lewis POCT-GLUCOSE METER 2022-08-20 05:34:00 Xenia [facility] TACROLIMUS LEVEL 2022-08-20 04:31:00 Arsenio [facility] BLOOD GAS, ARTERIAL 2022-08-20 02:32:00 Serkev [facility] AMMONIA 2022-08-20 02:31:00 Clarence Pablo [facility] CALCIUM, IONIZED 2022-08-20 02:31:00 Arsenio [facility] LACTIC ACID, ARTERIAL 2022-08-20 02:31:00 Ser[facility] HEPATIC FUNCTION PANEL 2022-08-20 02:31:00 Arsenio [facility] PROTHROMBIN TIME/INR 2022-08-20 02:31:00 [facility] BASIC METABOLIC PANEL 2022-08-20 02:31:00 [facility] CBC W/PLT COUNT & AUTO 2022-08-20 02:31:00 [facility] DIFFERENTIAL [facility] PHOSPHORUS 2022-08-20 02:31:00 [facility] MAGNESIUM 2022-08-20 02:31:00 [facility] CBC W/PLT COUNT & AUTO 2022-08-20 02:31:00 [facility] POCT-GLUCOSE METER 2022-08-20 00:11:00 [facility] POCT-GLUCOSE METER 2022-08-19 18:43:00 [facility] POCT-GLUCOSE METER 2022-08-19 15:58:00 [facility] POCT-GLUCOSE METER 2022-08-19 11:51:00 [facility] CBC W/PLT COUNT & AUTO 2022-08-19 11:49:00 [facility] DIFFERENTIAL [facility] CBC W/PLT COUNT & AUTO 2022-08-19 11:49:00 [facility] POCT-GLUCOSE METER 2022-08-19 06:29:00 [facility] XR CHEST 1 VIEW PORTABLE / 2022-08-19 04:39:00 Alice Solis [facility] BEDSIDE [facility] CALCIUM, IONIZED 2022-08-19 04:14:00 [facility] BLOOD GAS, ARTERIAL 2022-08-19 04:14:00 [facility] TACROLIM[facility] LEVEL 2022-08-19 04:14:00 [facility] LACTIC ACID, ARTERIAL 2022-08-19 04:14:00 [facility] HEPATIC FUNCTION PANEL 2022-08-19 04:14:00 [facility] PROTHROMBIN TIME/INR 2022-08-19 04:14:00 [facility] BASIC METABOLIC PANEL 2022-08-19 04:14:00 [facility] CBC W/PLT COUNT & AUTO 2022-08-19 04:14:00 [facility] PHOSPHORUS 2022-08-19 04:14:00 [facility] MAGNESIUM 2022-08-19 04:14:00 [facility] CBC W/PLT COUNT & AUTO 2022-08-19 04:14:00 [facility] POCT-GLUCOSE METER 2022-08-19 01:35:00 [facility] PREPARE RBC 2022-08-18 23:54:00 [facility] PREPARE PLASMA 2022-08-18 23:54:00 [facility] PREPARE PLATELETS 2022-08-18 23:54:00 [place] [facility] PREPARE CRYOPRECIPITATE 2022-08-18 23:54:00 [facility] BLOOD GAS, ARTERIAL 2022-08-18 20:49:00 Froilan Arreaga [facility] COMPREHENSIVE METABOLIC 2022-08-18 20:49:00 Froilan Arreaga [facility] POCT-GLUCOSE METER 2022-08-18 19:17:00 [facility] POCT-GLUCOSE METER 2022-08-18 18:28:00 [facility] POCT-[facility]SE METER 2022-08-18 17:59:00 [facility] US ABDOMINAL WITH DOPPLER 2022-08-18 17:23:00 [facility] US DOPPLER 2022-08-18 17:23:00 [facility] POCT-GLUCOSE METER 2022-08-18 14:06:00 [facility] POCT-GLUCOSE METER 2022-08-18 12:34:00 [facility] POCT-GLUCOSE METER 2022-08-18 11:28:00 [facility] POCT-GLUCOSE METER 2022-08-18 09:29:00 [facility] POCT-GLUCOSE METER 2022-08-18 07:02:00 [facility] MAGNESIUM 2022-08-18 06:57:00 [facility] POCT-GLUCOSE METER 2022-08-18 06:02:00 [facility] RRL CRITICAL LABS 2022-08-18 05:58:00 [facility] (ABG,NA,K,H&H,GLUCOSE) [facility] BLOOD GAS, ARTERIAL 2022-08-18 05:58:00 [facility] SODIUM NA-STAT LAB 2022-08-18 05:58:00 [facility] POTASSIUM-STAT LAB 2022-08-18 05:58:00 [facility] 2022-08-18 05:58:00 [facility] HGB/HCT (H&H) - STAT LAB 2022-08-18 05:58:00 [facility] BLOOD GAS, ARTERIAL 2022-08-18 04:59:00 [facility] POCT-GLUCOSE METER 2022-08-18 04:55:00 [facility] CBC (HEMOGRAM ONLY) 2022-08-18 03:08:00 [facility] PT/APTT 2022-08-18 03:08:00 [facility] FIBRINOGEN 2022-08-18 03:08:00 [facility] BLOOD GAS, ARTERIAL 2022-08-18 03:08:00 [facility] LACTIC ACID, ARTERIAL 2022-08-18 03:08:00 [facility] BASIC METABOLIC PANEL 2022-08-18 03:08:00 [facility] MAGNESIUM 2022-08-18 03:08:00 [facility] PHOSPHORUS 2022-08-18 03:08:00 [facility] HEPATIC FUNCTION PANEL 2022-08-18 03:08:00 Christine Armando [facility] POCT-GLUCOSE METER 2022-08-18 03:06:00 [facility] POCT-GLUCOSE METER 2022-08-18 02:02:00 [facility] POCT-GLUCOSE METER 2022-08-18 01:11:00 [facility] XR CHEST 1 VIEW PORTABLE / 2022-08-18 01:08:00 [facility]io[facility] BEDSIDE [facility] LACTIC ACID, ARTERIAL 2022-08-18 00:34:00 [facility] CBC W/PLT COUNT & AUTO 2022-08-18 00:30:[address] [facility] DIFFERENTIAL [facility] BASIC METABOLIC PANEL 2022-08-18 00:30:00 [facility] [place] MAGNESIUM 2022-08-18 00:30:00 [facility] PHOSPHORUS 2022-08-18 00:30:00 [facility] HEPATIC FUNCTION PANEL 2022-08-18 00:30[facility] 2022-08-18 00:30:00 [facility] CALCIUM, IONIZED 2022-08-18 00:30:00 [facility] PT/APTT 2022-08-18 00:30:00 [facility] FIBRINOGEN 2022-08-18 00:30:00 [facility] CBC W/PLT COUNT & AUTO 2022-08-18 00:30:00 [facility] PREPARE RBC 2022-08-18 00:27:00 Shamar Michaels [facility] RRL CRITICAL LABS 2022-08-17 22:46:19 [facility] (ABG,NA,K,H&H,GLUCOSE) [place] CALCIUM, IONIZED 2022-08-17 22:46:[address] [facility] BLOOD GAS, ARTERIAL 2022-08-17 22:46:[address] [facility] SODIUM NA-STAT LAB 2022-08-17 22:46:19 C[facility]lle [facility] POTASSIUM-STAT LAB 2022-08-17 22:46:19 Cherelle [facility] GLUCOSE-STAT LAB 2022-08-17 22:46:[address] [facility] HGB/HCT (H&H) - STAT LAB 2022-08-17 22:46:[address] [facility] RRL CRITICAL LABS 2022-08-17 22:23:15 Cherelle [facility] (ABG,NA,K,H&H,GLUCOSE) [place] CALCIUM, IONIZED 2022-08-17 22:23:[address] [facility] BLOOD GAS, ARTERIAL 2022-08-17 22:23:[address] [facility] SODIUM NA-STAT LAB 2022-08-17 22:23:15 [facility] POTASSIUM-STAT LAB 2022-08-17 22:23:15 [facility] GLUCOSE-STAT LAB 2022-08-17 22:23:[address] [facility] HGB/HCT (H&H) - STAT LAB 2022-08-17 22:23:[address] [facility] TRANSFUSE LEUKO-REDUCED 2022-08-17 22:15:00 [facility] RED BLOOD CELLS Center TRANSFUSE LEUKO-REDUCED 2022-08-17 22:13:00 [facility] RED BLOOD CELLS Center TRANSFUSE LEUKO-REDUCED 2022-08-17 22:12:00 [facility] RED BLOOD CELLS Center TRANSFUSE CRYOPRECIPITATE 2022-08-17 22:07:00 Cherelle [facility] TRANSFUSE CRYOPRECIPITATE 2022-08-17 22:06:00 Cherelle [facility] TRANSFUSE LEUKO-REDUCED 2022-08-17 22:04:00 [facility] PLATELETS Center TRANSFUSE LEUKO-REDUCED 2022-08-17 22:03:00 [facility] PLATELETS Center TRANSFUSE LEUKO-REDUCED 2022-08-17 21:49:00 [facility] RED BLOOD CELLS Center RRL CRITICAL LABS 2022-08-17 21:44:38 [facility] (ABG,NA,K,H&H,GLUCOSE) [place] CALCIUM, IONIZED 2022-08-17 21:44:[address] [facility] BLOOD GAS, ARTERIAL 2022-08-17 21:44:[address] [facility] SODIUM NA-STAT LAB 2022-08-17 21:44:38 [facility] POTASSIUM-STAT LAB 2022-08-17 21:44:38 [facility] GLUCOSE-STAT LAB 2022-08-17 21:44:[address] [facility] HGB/HCT (H&H) - STAT LAB 2022-08-17 21:44:[address] [facility] TRANSFUSE LEUKO-REDUCED 2022-08-17 21:26:00 [facility] RED BLOOD CELLS Center RRL CRITICAL LABS 2022-08-17 21:25:16 [facility] (ABG,NA,K,H&H,GLUCOSE) [place] CALCIUM, IONIZED 2022-08-17 21:25:16 [facility] BLOOD GAS, ARTERIAL 2022-08-17 21:25:[address] [facility] SODIUM NA-STAT LAB 2022-08-17 21:25:16 [facility] POTASSIUM-STAT LAB 2022-08-17 21:25:16 [facility] 2022-08-17 21:25:16 [facility] (H&H) - STAT LAB 2022-08-17 21:25:[address] [facility] RRL CRITICAL LABS 2022-08-17 21:16:33 [facility] (ABG,NA,K,H&H,GLUCOSE) [place] CALCIUM, IONIZED 2022-08-17 21:16:33 [facility] BLOOD GAS, ARTERIAL 2022-08-17 21:16:33 [facility] SODIUM NA-STAT LAB 2022-08-17 21:16:33 [facility] POTASSIUM-STAT LAB 2022-08-17 21:16:33 [facility] GLUCOSE-STAT LAB 2022-08-17 21:16:33 [facility] (H&H) - STAT LAB 2022-08-17 21:16:[address] [facility] RRL CRITICAL LABS 2022-08-17 20:51:21 [facility] (ABG,NA,K,H&H,GLUCOSE) [place] CALCIUM, IONIZED 2022-08-17 20:51:21 [facility] BLOOD GAS, ARTERIAL 2022-08-17 20:51:[address] [facility] SODIUM NA-STAT LAB 2022-08-17 20:51:21 [facility] POTASSIUM-STAT LAB 2022-08-17 20:51:21 [facility] GLU[facility]SE-STAT [facility] 2022-08-17 20:51:[address] [facility] HGB/HCT (H&H) - STAT LAB 2022-08-17 20:51:[address] [facility] TRANSFUSE LEUKO-REDUCED 2022-08-17 20:47:00 [facility] RED BLOOD CELLS [facility] TRANSFUSE PLASMA 2022-08-17 20:44:[address] [facility] TISSUE EXAM 2022-08-17 20:27:00 Shamar Michaels [facility] RRL CRITICAL LABS 2022-08-17 20:05:27 [facility] (ABG,NA,K,H&H,GLUCOSE) [place] CALCIUM, IONIZED 2022-08-17 20:05:[address] [facility] BLOOD GAS, ARTERIAL 2022-08-17 20:05:[address] [facility] SODIUM NA-STAT LAB 2022-08-17 20:05:27 [facility] POTASSIUM-STAT LAB 2022-08-17 20:05:27 [facility] GLUCOSE-STAT LAB 2022-08-17 20:05:[address] [facility] HGB/HCT (H&H) - STAT LAB 2022-08-17 20:05:[address] [facility] TRANSFUSE LEUKO-REDUCED 2022-08-17 19:46:00 [facility] RED BLOOD CELLS [place] TRANSFUSE PLASMA 2022-08-17 19:37:[address] [facility] RRL CRITICAL LABS 2022-08-17 19:09:53 [facility] (ABG,NA,K,H&H,GLUCOSE) [place] CALCIUM, IONIZED 2022-08-17 19:09:53 [facility] BLOOD GAS, ARTERIAL 2022-08-17 19:09:53 [facility] SODIUM NA-STAT LAB 2022-08-17 19:09:53 [facility] POTASSIUM-STAT LAB 2022-08-17 19:09:53 [facility] GLUCOSE-STAT LAB 2022-08-17 19:09:53 [facility] (H&H) - STAT LAB 2022-08-17 19:09:[address] [facility] FUNGUS CULTURE + SMEAR 2022-08-17 19:06:00 Shamar Michaels [facility] BODY FLUID CULTURE + GRAM 2022-08-17 19:06:00 Shamar Michaels [facility] ANAEROBIC CULTURE 2022-08-17 19:06:00 Xenia, [facility] [employer] CULTURE + SMEAR 2022-08-17 19:06:00 Xenia [facility] (NON-SPUTUM) [place] TRANSFUSE PLASMA 2022-08-17 18:36:[address] [facility] TRANSFUSE LEUKO-REDUCED 2022-08-17 18:35:00 [facility] RED BLOOD CELLS Center RRL CRITICAL LABS 2022-08-17 18:09:48 [facility] (ABG,NA,K,H&H,GLUCOSE) [place] CALCIUM, IONIZED 2022-08-17 18:09:[address] [facility] BLOOD GAS, ARTERIAL 2022-08-17 18:09:[address] [facility] SODIUM NA-STAT LAB 2022-08-17 18:09:48 [facility]lle [facility] POTASSIUM-STAT LAB 2022-08-17 18:09:48 C[facility]lle [facility] GLUCOSE-STAT LAB 2022-08-17 18:09:[address] [facility] HGB/HCT (H&H) - STAT LAB 2022-08-17 18:09:[address] [facility] TRANSPLANT, LIVER 2022-08-17 17:27:00 Xenia [facility] XR CHEST 1 VIEW PORTABLE / 2022-08-17 14:47:00 Christine Armando [facility] BEDSIDE [facility] HC LAB HIV-1 AG W/HIV-1&2 2022-08-17 13:12:00 Christine Armando [facility] HEPATITIS B PANEL 2022-08-17 13:12:00 [facility] HEPATITIS C ANTIBODY 2022-08-17 13:12:00 [facility] HEPATITIS C PCR, 2022-08-17 13:12:00 [facility] TSH 2022-08-17 13:12:00 [facility] T3 2022-08-17 13:12:00 [facility] T4 2022-08-17 13:12:00 [facility] COMPREHENSIVE METABOLIC 2022-08-17 13:12:00 [facility] STAT-LAB IONIZED CALCIUM 2022-08-17 13:12:00 [facility] MAGNESIUM 2022-08-17 13:12:00 [facility] PHOSPHORUS 2022-08-17 13:12:00 [facility] GAMMA GLUTAMYL TRANSFERASE 2022-08-17 13:12:00 [facility] (GGT) [facility] CYTOMEGALOVIRUS ANTIBODY, 2022-08-17 13:12:00 [facility] IGG [facility] CBC W/PLT COUNT & AUTO 2022-08-17 13:12:00 [facility] DIFFERENTIAL [facility] PROTHROMBIN TIME/INR 2022-08-17 13:12:00 [facility] APTT 2022-08-17 13:12:00 [facility] TYPE AND SCREEN, AUTOMATED 2022-08-17 13:12:00 [facility] CBC W/PLT COUNT & AUTO 2022-08-17 13:12:00 [facility] DIFFERENTIAL [facility] SARS-COV2/RT-PCR ([facility] & 2022-08-17 13:07:00 [facility] REF LABS) [facility] ECG 12-LEAD 2022-08-17 12:15:43 [facility] ECG 12-LEAD 2022-08-17 12:15:43 Unknown, Hl7 Doctor [facility] CT CHEST WITHOUT IV 2022-05-18 12:02:00 Amberly Washington [facility] CONTRAST Center MR ABDOMEN WITH & WITHOUT 2022-05-18 11:40:00 Amberly Washington [facility] IV CONTRAST Center ALPHA FETOPROTEIN (AFP), 2022-05-18 09:45:00 Amberly Washington [facility] TUMOR MARKER Center BASIC METABOLIC PANEL 2022-05-18 09:45:00 Amberly [facility] CBC W/PLT COUNT & AUTO 2022-05-18 09:45:00 Amberly Washington [facility] DIFFERENTIAL Center HEPATIC FUNCTION PANEL 2022-05-18 09:45:00 Amberly Washington [facility] PROTHROMBIN TIME/INR 2022-05-18 09:45:00 Amberly Washington CH I [facility] CBC W/PLT COUNT & AUTO 2022-05-18 09:45:00 Amberly Washington [facility] DIFFERENTIAL Center CBC W/PLT COUNT & AUTO 2022-01-07 14:53:00 [facility] DIFFERENTIAL Center IRON, TIBC, % SAT. 2022-01-07 14:53:00 DanilowiAmberly [facility] (WITHOUT FERRITIN) Center FERRITIN 2022-01-07 14:53:00 [facility] Bettie [facility] PLATELET ESTIMATION 2022-01-07 14:53:00 DanilowiAmberly [facility] MR BRAIN WITH & WITHOUT IV 2022-01-04 14:14:00 jaydenwiAmberly [facility] CONTRAST Center CT HEAD WO CONTRAST 2021-12-26 22:35:08 Felisha Quintana [facility] BASIC METABOLIC PANEL (NA, 2021-12-26 21:33:00 Felisha Quintana [facility] K, CL, CO2, GLUCOSE, BUN, Medica l Branch CREATININE, CA) CBC WITH DIFF 2021-12-26 21:33:00 Felisha Quintana [facility] URINALYSIS 2021-12-26 21:33:00 Felisha Quintana [facility] COVID-19 (ID NOW RAPID 2021-12-26 20:48:00 Felisha Quintana [facility] TESTING) Medical Branch CONSENT/REFUSAL FOR 2021-12-26 20:32:58 Doctor Unassigned, [facility] DIAGNOSIS AND TREATMENT [facility] BASIC METABOLIC PANEL 2021-12-22 12:08:00 Amberly [facility] CBC W/PLT COUNT & AUTO 2021-12-22 12:08:00 Amberly Washington [facility] HEPATIC FUNCTION PANEL 2021-12-22 12:08:00 Amberly Washington [facility] PROTHROMBIN TIME/INR 2021-12-22 12:08:00 Amberly [facility] CBC W/PLT COUNT & AUTO 2021-12-22 12:08:00 Amberly Washington [facility] DIFFERENTIAL [place] ALPHA FETOPROTEIN (AFP), 2021-12-06 13:43:00 Amberly Washington [facility] TUMOR MARKER Center BASIC METABOLIC PANEL 2021-12-06 13:43:00 Amberly [facility] CBC W/PLT COUNT & AUTO 2021-12-06 13:43:00 Amberly Washington [facility] DIFFERENTIAL [place] HEPATIC FUNCTION PANEL 2021-12-06 13:43:00 Amberly Washington [facility] PROTHROMBIN TIME/INR 2021-12-06 13:43:00 Amberly [facility] CBC W/PLT COUNT & AUTO 2021-12-06 13:43:00 Amberly Washington [facility] DIFFERENTIAL Center MR ABDOMEN WITH & WITHOUT 2021-12-06 12:08:00 Amberly Washington [facility] IV CONTRAST Center MR METASTATIC SKELETAL 2021-12-06 11:10:00 Amberly Washington [facility] STUDY Center CT CHEST WITHOUT IV 2021-12-06 10:40:00 Amberly Washington [facility] CONTRAST Center MR ABDOMEN WITH & WITHOUT 2021-08-26 10:40:00 Amberly Washington [facility] IV CONTRAST Center CT CHEST WITHOUT IV 2021-08-26 10:00:00 Amberly Washington [facility] CONTRAST [place] ALPHA FETOPROTEIN (AFP), 2021-08-26 08:27:00 Amberly Washington [facility] TUMOR MARKER Center BASIC METABOLIC PANEL 2021-08-26 08:27:00 Amberly [facility] CBC W/PLT COUNT & AUTO 2021-08-26 08:27:00 Amberly Washington [facility] HEPATIC FUNCTION PANEL 2021-08-26 08:27:00 Amberly Washington [facility] PROTHROMBIN TIME/INR 2021-08-26 08:27:00 Amberly Washington CH [facility] CBC W/PLT COUNT & AUTO 2021-08-26 08:27:00 Amberly Washington [facility] HEREDITARY HEMOCHROMATOSIS 2021-08-26 08:24:00 Amberly Washington [facility] COMPREHENSIVE METABOLIC 2021-08-03 11:34:00 Amberly Washington [facility] PANEL Center ALPHA FETOPROTEIN (AFP), 2021-08-03 11:34:00 Amberly Washington [facility] TUMOR MARKER Center PROTHROMBIN TIME/INR 2021-08-03 11:34:00 Amberly [facility] CBC W/PLT COUNT & AUTO 2021-08-03 11:34:00 Amberly Washington [facility] NM BONE SCAN WHOLE BODY 2021-04-29 13:03:00 Amberly Washington [facility] MR ABDOMEN WITH & WITHOUT 2021-04-29 11:48:00 Amberly Washington [facility] IV CONTRAST Center CT CHEST WITHOUT IV 2021-04-29 10:31:00 Amberly Washington [facility] CONTRAST Center ALPHA FETOPROTEIN (AFP), 2021-04-29 09:09:00 Amberly Washington [facility] TUMOR MARKER Center BASIC METABOLIC PANEL 2021-04-29 09:09:00 Amberly Washington C HI [facility] CBC W/PLT COUNT & AUTO 2021-04-29 09:09:00 Amberly Washington [facility] DIFFERENTIAL Center HEPATIC FUNCTION PANEL 2021-04-29 09:09:00 Amberly Washington [facility] PROTHROMBIN TIME/INR 2021-04-29 09:09:00 Amberly Washington CH I [facility] CBC W/PLT COUNT & AUTO 2021-04-29 09:09:00 Amberly Washington [facility] DIFFERENTIAL Center TROPONIN I 2021-04-01 19:14:00 Raya Garrett [facility] COMP. METABOLIC PANEL 2021-04-01 19:14:00 [facility] ([id number] AMMONIA, PLASMA 2021-04-01 19:12:00 Singer Raya [facility] CBC WITH DIFF 2021-04-01 19:12:00 Raya Garrett [facility] XR CHEST 1 VW 2021-04-01 18:51:09 Raya Garrett [facility] URINALYSIS 2021-04-01 18:40:00 Singer [facility] PROTHROMBIN TIME / INR 2021-04-01 18:30:00 [facility] CONSENT/REFUSAL FOR 2021-04-01 17:58:35 Doctor Unassigned, [facility] DIAGNOSIS AND TREATMENT [facility] IR EMBOLIZATION ARTERIAL 2021-03-12 12:05:00 Khaderi, Amberly Aija z [facility] BASIC METABOLIC PANEL (7) 2021-03-12 07:01:00 Anne-Marie More I [facility] HEPATIC FUNCTION PANEL 2021-03-12 07:01:00 Anne-Marie More [facility] CBC W/PLT COUNT & AUTO 2021-03-12 07:01:00 [facility] PROTHROMBIN TIME/INR 2021-03-12 07:01:00 Anne-Marie More [facility] CBC W/PLT COUNT & AUTO 2021-03-12 07:01:00 [facility] W[facility]T [facility] & AUTO 2021-02-23 10:05:00 [facility] [place] PROTHROMBIN TIME/INR 2021-02-23 10:05:00 [facility] [place] APTT 2021-02-23 10:05:00 [facility] BASIC METABOLIC PANEL (7) 2021-02-23 10:05:00 [facility] HEPATIC FUNCTION PANEL 2021-02-23 10:05:00 [facility] Aicha [facility] CBC W/PLT COUNT & AUTO 2021-02-23 10:05:00 [facility] [place] SARS-COV-2 COVID-19 2021-02-05 15:47:55 Doctor Unassigned, [facility] VACCINE,0.3ML,IM (PFIZER) [facility] MR ABDOMEN WITH & WITHOUT 2021-01-21 12:00:00 Amberly Washington [facility] IV CONTRAST Center CT CHEST WITHOUT IV 2021-01-21 10:45:00 Amberly Washington [facility] CONTRAST Center ALPHA FETOPROTEIN (AFP), 2021-01-21 10:02:00 Amberly Washington [facility] TUMOR MARKER Center BASIC METABOLIC PANEL (7) 2021-01-21 10:02:00 Amberly Washington [facility] CBC W/PLT COUNT & AUTO 2021-01-21 10:02:00 Amberly Washington [facility] HEPATIC FUNCTION PANEL 2021-01-21 10:02:00 Amberly Washington [facility] PROTHROMBIN TIME/INR 2021-01-21 10:02:00 Amberly Washington [facility] HEPATITIS C PCR, 2021-01-21 10:02:00 Amberly Washington [facility] QUANTITATIVE Center CBC W/PLT COUNT & AUTO 2021-01-21 10:02:00 Amberly Washington [facility] IR EMBOLIZATION ARTERIAL 2020-11-26 12:27:00 Amberly Washington [facility] BASIC METABOLIC PANEL (7) 2020-11-26 08:28:00 Anne-Marie oMre [facility] HEPATIC FUNCTION PANEL 2020-11-26 08:28:00 [facility] & AUTO 2020-11-26 08:28:00 [facility] PROTHROMBIN TIME/INR 2020-11-26 08:28:00 [facility] 2020-11-26 08:28:00 [facility] CBC W/PLT COUNT & AUTO 2020-11-26 08:28:00 [facility] BASIC METABOLIC PANEL (7) 2020-10-28 10:55:00 Amberly [facility] HEPATIC FUNCTION PANEL 2020-10-28 10:55:00 Amberly [facility] CBC W/PLT COUNT & AUTO 2020-10-28 10:55:00 Amberly Washington [facility] PROTHROMBIN TIME/INR 2020-10-28 10:55:00 Amberly [facility] HEPATITIS C PCR, 2020-10-28 10:55:00 Amberly Washington [facility] QUANTITATIVE Center CBC W/PLT COUNT & AUTO 2020-10-28 10:55:00 Amberly Washington [facility] NM BONE SCAN WHOLE BODY 2020-10-08 14:02:00 Amberly Washington [facility] ALPHA FETOPROTEIN (AFP), 2020-10-08 10:54:00 Amberly Washington [facility] TUMOR MARKER Center BASIC METABOLIC PANEL (7) 2020-10-08 10:54:00 Amberly [facility] CBC W/PLT COUNT & AUTO 2020-10-08 10:54:00 Amberly Washington [facility] HEPATIC FUNCTION PANEL 2020-10-08 10:54:00 Amberly [facility] PROTHROMBIN TIME/INR 2020-10-08 10:54:00 Amberly Washington [facility] CBC W/PLT COUNT & AUTO 2020-10-08 10:54:00 Amberly Washington [facility] CT CHEST WITHOUT IV 2020-10-08 09:45:00 Amberly Washington [facility] CONTRAST Center MR ABDOMEN WITH & WITHOUT 2020-09-01 14:15:00 Jose Francisco Laguna [facility] IV CONTRAST Center BASIC METABOLIC PANEL (7) 2020-09-01 13:15:00 Amador Yehse Yumiko [facility] HEPATIC FUNCTION PANEL 2020-09-01 13:15:00 Bereniceoglu Nickie [facility] CBC W/PLT COUNT & AUTO 2020-09-01 13:15:00 Nickie Yeh [facility] DIFFERENTIAL [facility] PROTHROMBIN TIME/INR 2020-09-01 13:15:00 Mind[facility]lu[facility]ie [facility] ALPHA FETOPROTEIN (AFP), 2020-09-01 13:15:00 Nickie Yeh [facility] TUMOR MARKER [facility] CBC W/PLT COUNT & AUTO 2020-09-01 13:15:00 Nickie Yeh [facility] DIFFERENTIAL [facility] XR CHEST 1 VW 2020-08-19 13:29:53 Wendy Bull [facility] HB ECG ROUTINE & RHYTHM 2020-08-19 13:05:46 Wendy Bull U [facility] [place] LIPASE 2020-08-19 13:01:00 Wendy Bull [facility] TROPONIN I 2020-08-19 13:01:00 Wendy Bull [facility] HEPATIC FUNCTION PANEL 2020-08-19 13:01:00 Wendy Bull [facility] ([id number]) (ALB,T.PRO,BILI [facility] T,BU/BC,ALT,AST,ALK PHOS) BASIC METABOLIC PANEL (NA, 2020-08-19 13:01:00 Wendy Bull [facility] K, CL, CO2, GLUCOSE, BUN, Medica l Branch CREATININE, CA) CBC WITH DIFF 2020-08-19 13:01:00 Wendy Bull [facility] N-TERMINAL PRO-BNP 2020-08-19 13:01:00 Wendy Bull [facility] COVID-19 (ID NOW RAPID 2020-08-19 13:01:00 Wendy Bull [facility] TESTING) [facility] CONSENT/REFUSAL FOR 2020-08-19 12:21:55 Doctor Unassigned, [facility] DIAGNOSIS AND TREATMENT [facility] AMMONIA, PLASMA 2020-06-26 01:01:00 Carolina San [facility] PROTHROMBIN TIME / INR 2020-06-26 01:01:00 Carolina San [facility] XR CHEST 1 VW 2020-06-25 23:46:19 Carolina San [facility] LIPASE 2020-06-25 23:43:00 Carolina San [facility] MAGNESIUM 2020-06-25 23:43:00 Carolina San [facility] TROPONIN I 2020-06-25 23:43:00 Carolina San [facility] HEPATIC FUNCTION PANEL 2020-06-25 23:43:00 Carolina San [facility] ([id number]) (ALB,T.PRO,BILI [facility] T,BU/BC,ALT,AST,ALK PHOS) BASIC METABOLIC PANEL (NA, 2020-06-25 23:43:00 Carolina San [facility] K, CL, CO2, GLUCOSE, BUN, Medica l Branch CREATININE, CA) CBC WITH DIFF 2020-06-25 23:43:00 Carolina San [facility] URINALYSIS 2020-06-25 23:43:00 Carolina San [facility] N-TERMINAL PRO-BNP 2020-06-25 23:43:00 Carolina San [facility] COVID-19 (ID NOW RAPID 2020-06-25 23:43:00 Carolina San [facility] TESTING) [facility] NOTICE OF PRIVACY 2020-06-25 22:41:45 Doctor Arboleda [facility] PRACTICES [facility] CONSENT/REFUSAL FOR 2020-06-25 22:41:29 Doctor Arboleda [facility] DIAGNOSIS AND TREATMENT [facility] HEALTH - OTHER 2019-02-08 05:01:00 Doctor Arbolead [facility] HEALTH - OTHER 2019-01-31 05:01:00 Doctor Arboleda [facility] POCT HEMOGLOBIN A1C TEST 2019-01-21 21:30:00 Brenda Rod [facility] DME/SUPPLY JUSTIFICATION 2019-01-17 05:01:00 Doctor Arboleda [facility] HEALTH - OTHER 2019-01-07 05:01:00 [facility] - OTHER 2019-01-02 05:01:00 Doctor Arboleda [facility] HEALTH - OTHER 2018-12-28 05:01:00 Trung Conte [facility] INSURANCE CORRESPONDENCE 2018-12-17 05:01:00 Doctor Arboleda [facility] PATIENT QUESTIONNAIRE 2016-10-19 05:01:00 [facility] 2016-10-13 05:01:00 Trung Conte [facility] Plan of Care Planned Activity Planned Date Details Comments Source Future Scheduled 2028-06-[address] [facility] colon (procedure) [code = 881434166] Future Scheduled 2028-06-[address] [facility] 00:00:00 [facility] colon (procedure) [code = 350484945] Future Scheduled 2028-06-[address] [facility] Test 00:00:00 [facility] colon (procedure) [code = 717586038] Future Scheduled 2028-06-[address] [facility] Test 00:00:00 [facility] colon (procedure) [code = 113003075] Future Scheduled 2028-06-[address] [facility] Test 00:00:00 [facility] colon (procedure) [code = 053427669] Future Scheduled 2028-06-[address] [facility] Test 00:00:00 [facility] colon (procedure) [code = 011655342] Future Scheduled 2028-06-[address] [facility] Test 00:00:00 [facility] colon (procedure) [code = 875393241] Future Scheduled 2028-06-[address] [facility] Test 00:00:00 [facility] colon (procedure) [code = 008393203] Future Scheduled 2028-06-[address] [facility] Test 00:00:00 [facility] colon (procedure) [code = 592907408] Future Scheduled 2028-06-[address] [facility] Test 00:00:00 malignant [facility] colon (procedure) [code = 298040158] Future Scheduled 2028-06-[address] [facility] Test 00:00:00 [facility] colon (procedure) [code = 621067247] Future Scheduled 2028-06-[address] [facility] Test 00:00:00 [facility] colon (procedure) [code = 783624412] Future Scheduled 2028-06-[address] [facility] Test 00:00:00 [facility] colon (procedure) [code = 394168200] Future Scheduled 2028-06-[address] [facility] Test 00:00:00 [facility] colon (procedure) [code = 067940796] Future Scheduled 2028-06-[address] [facility] Test 00:00:00 malignant [facility]oplasm [facility] Center colon (procedure) [code = 067584588] Future Scheduled 2026-09-18 DTAP/TDAP/TD VACCINES CH I [...] Future Scheduled 2023-02-26 [facility] Influ[facility]al [facility] 00:00:00 (>/= 19 yrs) [code = IMM Influenza Seasonal (>/= 19 yrs)] Future Scheduled 2023-02-17 Screening for [facility] Test 15:32:18 malignant neoplasm of colon (procedure) [code = 734776168] Future Scheduled 2023-02-17 Screening for [facility] Test 15:32:18 malignant neoplasm of colon (procedure) [code = 120347935] Future Scheduled 2023-02-17 Screening for [facility] Test 15:32:18 malignant neoplasm of colon (procedure) [code = 826153141] Future Scheduled 2023-02-17 Hepatitis C screening [facility] Test 15:32:18 (procedure) [code = 268690224] Future Scheduled 2023-02-17 Screening for [facility] Test 15:32:18 malignant neoplasm of colon (procedure) [code = 707273974] Future Scheduled 2023-02-17 Screening for [facility] Test 15:32:18 malignant neoplasm of colon (procedure) [code = 927345299] Future Scheduled 2023-02-17 SHINGLES VACCINES ([facility] 15:32:18 of 2) [code = SHINGLES VACCINES (1 of 2)] Future Scheduled 2023-02-17 HEPATITIS B VACCINES Met [facility] Test 15:32:18 (1 of 3 - Risk 3-dose series) [code = HEPATITIS B VACCINES (1 of 3 - Risk 3-dose series)] Future Scheduled 2023-02-17 65+ [facility]:32[facility]18 VACCINE (2 - PPSV23 or PCV20) [code = 65+ PNEUMOCOCCAL VACCINE (2 - PPSV23 or PCV20)] Future Scheduled 2023-02-17 COVID-19 VACCINE (4 - Me [facility] Test 15:32:18 Pfizer series) [code = COVID-19 VACCINE (4 - Pfizer series)] Future Scheduled 2023-02-17 INFLUENZA VACCINE (#1) M [facility] Test 15:32:18 [code = INFLUENZA VACCINE (#1)] Future Scheduled 2023-01-27 INFLUENZA VACCINE [facility] Test 00:00:00 (Season Ended) [code = [facility] INFLUENZA VACCINE (Season Ended)] Future Scheduled 2023-01-27 IMM Influenza Seasonal H [facility] Test 00:00:00 (>/= 19 yrs) [code = IMM Influenza Seasonal (>/= 19 yrs)] Future Scheduled 2023-01-02 Hepatitis C screening [facility] Test 13:36:33 (procedure) [code = 903779165] Future Scheduled 2023-01-02 Screening for [facility] Test 13:36:33 malignant neoplasm of colon (procedure) [code = 935514903] Future Scheduled 2023-01-02 Screening for [facility] Test 13:36:33 malignant neoplasm of colon (procedure) [code = 842317386] Future Scheduled 2023-01-02 SHINGLES VACCINES (1 Met [facility] Test 13:36:33 of 2) [code = SHINGLES VACCINES (1 of 2)] Future Scheduled 2023-01-02 HEPATITIS B VACCINES Met [facility] Test 13:36:33 (1 of 3 - Risk 3-dose series) [code = HEPATITIS B VACCINES (1 of 3 - Risk 3-dose series)] Future Scheduled 2023-01-02 65+ [facility] 13:36:33 VACCINE (2 - PPSV23 if available, else PCV20) [code = 65+ PNEUMOCOCCAL VACCINE (2 - PPSV23 if available, else PCV20)] Future Scheduled 2023-01-02 COVID-19 VACCINE (4 - [facility] Test 13:36:33 Pfizer series) [code = COVID-19 VACCINE (4 - Pfizer series)] Future Scheduled 2023-01-02 [facility]ZA [facility]ACCINE [facility] 13:36:33 [code = INFLUENZA VACCINE] Future Scheduled 2023-01-02 [facility] malignant neoplasm of colon (procedure) [code = 823332151] Future Scheduled 2023-01-02 Screening for [facility] Test 13:36:33 malignant neoplasm of colon (procedure) [code = 185090258] Future Scheduled 2023-01-02 Screening for [facility] Test 13:36:33 malignant neoplasm of colon (procedure) [code = 203961162] Future Scheduled 2022-08-29 Hepatitis C screening [facility] Test 09:59:08 (procedure) [code = 795271948] Future Scheduled 2022-08-29 COLONOSCOPY SCREENING [facility] Test 09:59:08 [code = COLONOSCOPY SCREENING] Future Scheduled 2022-08-29 SHINGLES VACCINES (1 Met [facility] Test 09:59:08 of 2) [code = SHINGLES VACCINES (1 of 2)] Future Scheduled 2022-08-29 HEPATITIS B VACCINES Met [facility] Test 09:59:08 (1 of 3 - Risk 3-dose series) [code = HEPATITIS B VACCINES (1 of 3 - Risk 3-dose series)] Future Scheduled 2022-08-29 65+ [facility] 09:59:08 VACCINE (2 - PPSV23 if available, else PCV20) [code = 65+ PNEUMOCOCCAL VACCINE (2 - PPSV23 if available, else PCV20)] Future Scheduled 2022-08-29 COVID-19 VACCINE (4 - [facility] Test 09:59:08 Booster for Pfizer series) [code = COVID-19 VACCINE (4 - Booster for Pfizer series)] Future Scheduled 2022-08-29 INFLUENZA VACCINE Method [facility] Test 09:59:08 [code = INFLUENZA VACCINE] Future Scheduled 2022-08-29 Hepatitis C screening [facility] Test 09:59:08 (procedure) [code = 158110698] Future Scheduled 2022-08-29 COLONOSCOPY SCREENING [facility] Test 09:59:08 [code = COLONOSCOPY SCREENING] Future Scheduled 2022-08-29 SHINGLES VACCINES (1 Met [facility] Test 09:59:08 of 2) [code = SHINGLES VACCINES (1 of 2)] Future Scheduled 2022-08-29 HEPATITIS B VACCINES Met [facility] Test 09:59:08 (1 of 3 - Risk 3-dose series) [code = HEPATITIS B VACCINES (1 of 3 - Risk 3-dose series)] Future Scheduled 2022-08-29 65+ [facility]AL [facility] 09:59:08 VACCINE (2 - PPSV23 if available, else PCV20) [code = 65+ PNEUMOCOCCAL VACCINE (2 - PPSV23 if available, else PCV20)] Future Scheduled 2022-08-29 COVID-19 VACCINE (4 - [facility] Test 09:59:08 Booster for Pfizer series) [code = COVID-19 VACCINE (4 - Booster for Pfizer series)] Future Scheduled 2022-08-29 INFLUENZA VACCINE Method [facility] Test 09:59:08 [code = INFLUENZA VACCINE] Future Scheduled 2022-08-20 Hemoglobin A1c [facility] Test 00:00:00 [facility] (procedure) [code = 97796303] Future Scheduled 2022-08-02 Hepatitis C screening [facility] Test 10:48:26 (procedure) [code = 581124981] Future Scheduled 2022-08-02 COLONOSCOPY SCREENING [facility] Test 10:48:26 [code = COLONOSCOPY SCREENING] Future Scheduled 2022-08-02 SHINGLES VACCINES (1 Met [facility] Test 10:48:26 of 2) [code = SHINGLES VACCINES (1 of 2)] Future Scheduled 2022-08-02 HEPATITIS B VACCINES Met [facility] Test 10:48:26 (1 of 3 - Risk 3-dose series) [code = HEPATITIS B VACCINES (1 of 3 - Risk 3-dose series)] Future Scheduled 2022-08-02 65+ [facility]AL [facility] Test 10:48:26 VACCINE (2 - PPSV23 if available, else PCV20) [code = 65+ PNEUMOCOCCAL VACCINE (2 - PPSV23 if available, else PCV20)] Future Scheduled 2022-08-02 COVID-19 VACCINE ([facility] - [facility] Test 10:48:26 Booster for Pfizer series) [code = COVID-19 VACCINE (4 - Booster for Pfizer series)] Future Scheduled 2022-08-02 INFLUENZA VACCINE [facility] Test 10:48:26 [code = INFLUENZA VACCINE] [...] [facility] Test 00:00:00 (procedure) [code = [facility] 03942148] Future Scheduled 2021-12-[address] [facility] Test 00:00:00 (procedure) [code = [facility] 03749545] Future Scheduled 2021-12-[address] [facility] Test 00:00:00 (procedure) [code = [facility] 89400531] Future Scheduled 2021-12-[address] [facility] Test 00:00:00 (procedure) [code = [facility] 14380239] Future Scheduled 2021-12-[address] [facility] Test 00:00:00 (procedure) [code = [facility] 84856646] Future Scheduled 2021-12-[address] [facility] Test 00:00:00 (procedure) [code = [facility] 61179015] Future Scheduled 2021-12-[address] [facility] Test 00:00:00 (procedure) [code = [facility] 18464726] Future Scheduled 2021-12-[address] [facility] Test 00:00:00 (procedure) [code = [facility] 84897008] Future Scheduled 2021 Imm Pneumococcal 65+ Eusebio [...] screening Medical C enter (procedure) [code = 690918468] Future Scheduled [address] [facility] Test 00:00:00 aneurysm screening Medical [facility] enter (procedure) [code = 669344508] Future Scheduled 2021 PNEUMOCOCCAL 65+ [address] Test 00:00:00 (2 - PPSV23 or PCV20) Medica l Center [code = PNEUMOCOCCAL 65+ YRS (2 - PPSV23 or PCV20)] Future Scheduled [address] [facility] Test 00:00:00 aneurysm screening Medical C enter (procedure) [code = 668572978] Future Scheduled 2021 PNEUMOCOCCAL 65+ YRS [facility] [...] Future Scheduled 2021 Imm Pneumococcal 65+ [facility]us[facility] Test 00:00:00 (1 - PCV) [code [...] malignant neoplasm of colon (procedure) [code = 873309128] Future Scheduled 2006 SHINGLES VACCINES (1 [facility] [...] malignant neoplasm of colon (procedure) [code = 856359822] Future Scheduled 2006 [facility] malignant neoplasm of colon (procedure) [code = 523021128] Future Scheduled 2006 [facility] 00:00:00 malignant neoplasm of colon (procedure) [code = 142290405] Future Scheduled 2006 [facility] 00:00:00 malignant neoplasm of colon (procedure) [code = 151898909] Future Scheduled 2006 [facility] 00:00:00 malignant neoplasm of colon (procedure) [code = 528596399] Future Scheduled 2006 [facility] 00:00:00 malignant neoplasm of colon (procedure) [code = 608838323] Future Scheduled 2006 [facility] 00:[facility]:00 malignant neoplasm of colon (procedure) [code = 016730829] Future Scheduled 2006 [facility] 00:00:00 malignant neoplasm of colon (procedure) [code = 831582129] Future Scheduled 2006 [facility] 00:[facility]:00 malignant neoplasm of colon (procedure) [code = 764256288] Future Scheduled 2006 [facility] 00:[facility]:00 malignant neoplasm of colon (procedure) [code = 529399208] Future Scheduled 1975-11-29 SHINGLES VACCINES ([address] [facility] Test 00:00:00 of 2) [code = SHINGLES Medic al Center VACCINES (1 of 2)] Future Scheduled [address]IC EYE EXAM [facility] Test 00:00:00 [code = DIABETIC EYE Medical Center EXAM] Future Scheduled [address] [facility] 00[facility]00 examination Medical Center (regime/therapy) [code = 438421517] Future Scheduled 1966 Urine screening for [facility] Test 00:00:00 protein (procedure) Medical Center [code = 550065416] Future Scheduled 1961 COVID-19 Vaccine (1) Eusebio [...] Medica l Center colon (procedure) [code = 261640865] Future Scheduled [address] [facility] Test 00:00:00 malignant neoplasm of [facility] Center colon (procedure) [code = 033224885] Future Scheduled 1956 Sigmoidoscopy [facility] Cent[facility] r Future Scheduled [address] [facility] 00:00:00 (combo) [code = CT Medical C enter Colonography (combo)] Future Scheduled [address] [facility] Test 00:00:00 malignant neoplasm of [facility]ica [facility] Center colon (procedure) [code = 336840780] Future Scheduled [address] [facility] Test 00:00:00 malignant neoplasm of [facility]ica [facility] Center colon (procedure) [code = 103040214] Future Scheduled 1956 Sigmoidoscopy [facility]oscopy] Medical Cente r Future Scheduled [address] [facility] 00:00:00 (combo) [code = CT Medical C enter Colonography (combo)] Future Scheduled [address] [facility] Test 00:00:00 malignant neoplasm of [facility] Center colon (procedure) [code = 127476691] Future Scheduled [address] [facility] Test 00:00:00 malignant neoplasm of [facility]ica [facility] Center colon (procedure) [code = 672271641] Future Scheduled 1956 [facility]oidoscopy [facility]oscopy] Medical Kindrae r Future Scheduled [address] [facility] 00:00:00 (combo) [code = CT Medical C enter Colonography (combo)] Future Scheduled [address] [facility] Test 00:00:00 malignant neoplasm of [facility] Center colon (procedure) [code = 074137836] Future Scheduled [address] [facility] Test 00:00:00 malignant neoplasm of [facility] Center colon (procedure) [code = 797194304] Future Scheduled 1956 Sigmoidoscopy [facility]oscopy] [facility] Future Scheduled [address] [facility] 00:00:00 (combo) [code = CT Medical C enter Colonography (combo)] Future Scheduled [address] [facility] 00:00:00 malignant neoplasm of [facility] Center colon (procedure) [code = 196415910] Future Scheduled [address] [facility] Test 00:00:00 malignant neoplasm of [facility] Center colon (procedure) [code = 704831972] Future Scheduled 1956 [facility]oidoscopy [facility]] [facility] Future Scheduled [address] [facility] 00:00:00 (combo) [code = CT Medical C enter Colonography (combo)] Future Scheduled [address] [facility] Test 00:00:00 malignant neoplasm of [facility]ica [facility] Center colon (procedure) [code = 005551771] Future Scheduled [address] [facility] Test 00:00:00 malignant neoplasm of [facility]ica [facility] Center colon (procedure) [code = 723407491] Future Scheduled 1956 [facility]oidoscopy [facility]oscopy] Medical Cente r Future Scheduled [address] [facility] 00:00:00 (combo) [code = CT Medical C enter Colonography (combo)] Future Scheduled [address] [facility] 00[facility]00:00 malignant neoplasm of [facility] Center colon (procedure) [code = 489518951] Future Scheduled [address] [facility] Test 00:00:00 malignant neoplasm of [facility] Center colon (procedure) [code = 443482936] Future Scheduled 1956 Sigmoidoscopy [code = CH [...] Facility Department ID 2022-11-22 Inpatient SHAMAR ORONA [facility] [id number] [facility] 17:03:30 2022-11-20 Inpatient SHAMAR ORONA [facility] [id number] [facility] 13:35:40 2022-11-18 Inpatient SHAMAR ORONA [facility] [id number] [facility] 08:23:04 2022-11-16 Inpatient SHAMAR ORONA [facility] [id number] [facility] 19:46:56 2022-11-16 Inpatient SHAMAR ORONA [facility] [id number] [facility] 19:00:15 2022-10-04 Outpatient [facility] [id number] Common 13:17:01 [id number] [facility] 2022-09-05 [facility] Shamar Michaels [facility] [id number] 00:[facility]00 Encounter [facility] 2021-03-27 Emergency [facility] [id number] [facility] ER JOSÉ ANTONIO MYERS General Med [id number] SLE 16:51:00 JOSH 2023-03-16 2023-03-16 Outpatient [facility] [id number] [facility] 00:00:00 00:00:00 2023-03-16 2023-03-16 Outpatient EL [facility] [id number] [facility] 00:00:00 00:00:00 2023-03-06 2023-03-06 Outpatient SHAMAR ORONA [facility] [id number] [facility] 00:00:00 00:00:00 2023-03-06 2023-03-06 Outpatient SHAMAR ORONA [facility] [id number] [facility] 00:00:00 00:00:00 2023-01-12 2023-01-12 Outpatient PING LENTZ [facility] [id number] [facility] 10:30:59 10:30:59 QUENTIN 2023-01-12 2023-01-12 Outpatient EL [facility] [id number] [facility] 10:30:41 10:30:41 2023-01-05 2023-01-05 Outpatient EL [facility] [id number] [facility] 00:00:00 00:00:00 2023-01-05 2023-01-05 Outpatient EL [facility] [id number] [facility] 00:00:00 00:00:00 2022-12-29 2022-12-29 [facility] [facility] [id number] [facility] 00:00:00 00:00:00 2022-12-29 2022-12-29 Outpatient SLE SLE [id number] [facility] 00:00:00 00:00:00 2022-12-15 2022-12-15 Outpatient PING CAROLCRIS [facility] Surgery [id number] SLE 08:16:00 11:13:00 OSBALDO 2022-12-15 2022-12-15 [facility] [id number] [facility] 00:00:00 00:00:00 OSBALDO 2022-12-06 2022-12-06 [facility] [id number] [facility] 00:00:00 00:00:00 OSBALDO 2022-12-01 2022-12-01 Outpatient PING LUZ MARIA VILLANUEVA SLE SLE [id number] SLE[facility] 09:36:11 09:36:11 2022-12-01 2022-12-01 Outpatient EL SLE SLEH [id number] SLEH 09:35:47 09:35:47 2022 2022 Outpatient EL SLEH SLEH [id number] SLEH 08:52:21 08:52:21 2022-11-16 2022-11-24 Inpatient SHAMAR ORONA SLE Transplant 20 [id number] [facility] 16:37:00 14:57:00 2022-11-21 2022-11-21 Outpatient EL SLEH SLEH [id number] [facility]H 00:00:00 00:00:00 2022-11-21 2022-11-21 Outpatient EL SLEH SLEH [id number] [facility]H 00:00:00 00:00:00 2022-11-16 2022-11-16 Outpatient EL SLE SLEH [id number] [facility]H 09:54:35 09:54:35 2022-11-14 2022-11-14 Outpatient EL SLE SLE [id number] [facility]H 00:00:00 00:00:00 2022-11-14 2022-11-14 Outpatient EL SLE SLE [id number] [facility]H 00:00:00 00:00:00 2022-11-09 2022-11-09 Outpatient SHAMAR ORONA [facility] SLE [id number] SLEH 10:41:54 23:59:00 2022-11-09 2022-11-09 Outpatient SHAMAR ORONA [facility] SLE [id number] SLEH 10:41:39 09:59:00 2022-11-09 2022-11-09 Outpatient EL SLE SLE [id number] SLEH 09:32:11 09:32:11 2022-11-02 2022-11-02 Outpatient EL SLE SLE [id number] SLEH 08:57:36 08:57:36 2022-10-26 2022-10-26 Outpatient EL SLE SLE [id number] SLEH 09:35:52 09:35:52 2022-10-17 2022-10-17 Outpatient EL TOR SLE SLE [id number] SLEH 10:15:39 10:15:39 QUENTIN 2022-10-172022-10-17 Outpatient EL SLEH SLEH [id number] [facility]H 10:14:57 10:14:57 2022-10-06 2022-10-06 Outpatient SHAMAR ORONA SLE SLEH [id number] SLEH 10:12:53 10:12:53 2022-10-06 2022-10-06 Outpatient EL SLEH SLEH [id number] SLEH 10:12:42 10:12:42 2022-09-29 2022-09-29 Outpatient EL LUZ MARIA VILLANUEVA SLEH SLEH [id number] SLEH 10:25:59 10:25:59 2022-09-29 2022-09-29 Outpatient EL SLEH SLEH [id number] SLEH 10:25:34 10:25:34 2022-09-18 2022-09-27 Inpatient ER ANUEL, SLE Transplant [id number] SLE[facility] 16:54:00 18:15:00 KATHRYN 2022-09-22 2022-09-22 Outpatient EL SLEH SLEH [id number] SLEH 00:00:00 00:00:00 2022-09-22 2022-09-22 Outpatient EL SLEH SLEH [id number] [facility]H 00:00:00 00:00:00 2022-09-17 2022-09-17 Outpatient EL SLEH SLEH [id number] SLEH 09:28:55 09:28:55 2022-09-17 2022-09-17 Orders Shamar Orona [facility] [id number] 08:15:00 08:30:00 Only [facility] 2022-09-17 2022-09-17 Telephone Albaro [facility] [id number] 00:00:00 00:00:00 [facility] 2022-09-16 2022-09-16 Telephone Dewayne [facility] [id number] 00:00:00 00:00:00 [facility] 2022-09-16 2022-09-16 Documentat Mike Lancaster [facility] [id number] [facility] 00:00:00 00:00:00 [facility] 2022-09-16 2022-09-16 Telephone Dewayne [facility] [id number] 00:00:00 00:00:00 [facility] 2022-09-16 2022-09-16 Telephone Hipolito [facility] [id number] 00:00:00 00:00:00 Vinod Butler [facility] 2022-09-15 2022-09-15 Outpatient EL SHAMAR MICHAELS [facility] SLE [id number] SLE 09:49:17 09:49:17 2022-09-15 2022-09-15 Outpatient [facility] SLE [id number] SLEH 09:49:03 09:49:03 2022-09-15 2022-09-15 Follow-Up Shamar Michaels [facility] [id number] 08:00:00 08:15:00 [facility] 2022-09-15 2022-09-15 Orders EL Shamar Michaels [facility] [id number] 07:10:00 07:20:00 Only [facility] 2022-09-14 2022-09-14 Documentat Esteban [facility] [id number] 00:00:00 00:00:00 devon Young [facility] 2022-09-12 2022-09-12 Telephone Maureen [facility] [id number] 00:00:00 00:00:00 Shahnaz Singh [facility] 2022-09-12 2022-09-12 Social Edmund [facility] [id number] 00:00:00 00:00:[address] [facility] 2022-09-12 2022-09-12 Documentat Ramirez [facility] [id number] 00:00[facility]00 00:00:00 [facility] 2022-09-11 Inpatient ER SHAMAR MICHAELS [facility] Transplant 20 [id number] [facility] 18:31:00 14:00:00 2022-09-11 2022-09-11 Refill Xenia Shamar [facility] [id number] 00:00:00 00:00:00 [facility] 2022-09-09 2022-09-09 Surgery Brandee [facility] [id number] 11:00:00 12:30:00 [facility] 2022-09-09 2022-09-09 Anesthesia AaronRohith [facility] [id number] 11:13:00 12:17:[address] [facility] 2022-09-08 2022-09-08 Outpatient EL SLEH SLE [id number] [facility] 00:00:00 00:00:00 2022-09-08 2022-09-08 Outpatient EL SLEH SLEH [id number] [facility] 00:00:00 00:00:00 2022-09-08 2022-09-08 Orders Maureen [facility] [id number] 00:00:00 00:00:00 Only [facility] 2022-09-06 2022-09-06 Abstract Nona [facility] [id number] 00:00:00 00:00:00 [facility] 2022-09-06 2022-09-06 Travel [facility] [id number] [facility] 00:00:00 00:00:00 [facility] 2022-09-05 2022-09-05 Outpatient EL SLE SLE [id number] [facility] 09:00:20 09:00:20 2022-09-05 2022-09-05 Orders Shamar Orona [facility] [id number] 07:50:00 08:00:00 Only [facility] 2022-09-05 2022-09-05 Telephone Maureen [facility] [id number] 00:00:00 00:00:00 [facility] 2022-09-05 2022-09-05 Telephone Maureen [facility] [id number] 00:00:00 00:00:00 [facility] 2022-09-05 2022-09-05 Toni Armando [facility] [id number] 00:00:00 00:00:00 Only [facility] 2022-09-04 2022-09-04 [facility] [id number] 00:00:00 00:00:00 [facility] 2022-09-03 2022-09-03 [facility] [id number] 00:00:00 00:00:00 [facility] 2022-09-02 2022-09-02 Documentcarla Orellana [facility] [id number] 00:00:00 00:00:00 devon Jessenia Young [facility] 2022-09-02 2022-09-02 [facility] [id number] 00:00:00 00:00:00 [facility] 2022-09-02 2022-09-02 [facility] [id number] 00:00:00 00:00:00 Only [facility] 2022-09-02 2022-09-02 [facility] [id number] 00:00:00 00:00:00 [facility] 2022-09-01 2022-09-01 Outpatient AL, [facility] SLE [id number] SLEH 10:04:47 10:04:47 TIFFIN 2022-09-01 2022-09-01 Outpatient [facility] SLE [id number] [facility]H 10:04:37 10:04:37 2022-09-01 2022-09-01 Follow-Up Shamar Michaels [facility] [id number] 09:30:00 09:45:00 [facility] 2022-09-01 2022-09-01 Orders Shamar Orona [facility] [id number] 08:15:00 08:25:00 Only [facility] 2022-09-01 2022-09-01 Documentat Esteban [facility] [id number] 00:00:00 00:00:00 ion [facility] 2022-08-31 2022-08-31 Outpatient [facility] [id number] [facility] 00:00:00 00:00:00 2022-08-31 2022-08-31 Outpatient EL PADMINI, [facility] SLE [id number] SLEH 00:00:00 00:00:00 AMBERLY 2022-08-31 2022-08-31 [facility] [id number] 00:00:00 00:00:00 ion [facility] 2022-08-30 2022-08-30 Orders Maureen [facility] [id number] 00:00:00 00:00:00 Only [facility] 2022-08-30 2022-08-30 [facility] [id number] 00:00:00 00:00:00 [facility] 2022-08-30 2022-08-30 Telephone Maureen [facility] [id number] 00:00:00 00:00:00 [facility] 2022-08-29 2022-08-29 Outpatient [facility] [id number] SLE 09:59:03 09:59:03 2022-08-29 2022-08-29 Orders Shamar Orona [facility] [id number] 09:10:00 09:15:00 Only [facility] 2022-08-29 2022-08-29 [facility]phone [facility] [id number] 00:00:00 00:00:00 [facility] 2022-08-29 2022-08-29 [facility]phone [facility] [id number] 00:00:00 00:00:00 [facility] 2022-08-29 2022-08-29 Telephone Edmund [facility] [id number] 00:00:00 00:00:00 [facility] 2022-08-29 2022-08-29 Telephone Maureen [facility] [id number] 00:00:00 00:00:00 [facility] 2022-08-25 2022-08-25 Outpatient EL [facility] [id number] SLE 09:59:38 09:59:38 TIFFIN 2022-08-25 2022-08-25 Outpatient [facility] SLE [id number] [facility]H 09:31:58 09:31:58 2022-08-25 2022-08-25 Follow-Up Shamar Michaels [facility] [id number] 08:00:00 08:15:00 [facility] 2022-08-25 2022-08-25 Orders Shamar Michaels [facility] [id number] 07:30:00 07:40:00 Only [facility] 2022-08-25 2022-08-25 Orders Esteban [facility] [id number] 00:00:00 00:00:00 Only [facility] 2022-08-25 2022-08-25 Telephone Maureen [facility] [id number] 00:00:00 00:00:00 [facility] 2022-08-24 2022-08-24 [facility]phone [facility] [id number] 00:00:00 00:00:00 [facility] 2022-08-24 2022-08-24 Orders Al [facility] [id number] 00:00:00 00:00:00 Only [facility] 2022-08-24 2022-08-24 Telephone Maureen [facility] [id number] 00:00:00 00:00:00 [facility] 2022-08-24 2022-08-24 Telephone Edmund [facility] [id number] 00:00:00 00:00:00 [facility] 2022-08-17 2022-08-23 Inpatient EL SHAMAR MICHAELS [facility] Surgery [id number] [facility] 11:02:00 17:42:00 2022-08-23 2022-08-23 Documentcarla Pack [facility] [id number] 00:00:00 00:00:00 ion [facility] 2022-08-23 2022-08-23 Orders Maureen [facility] [id number] 00:00:00 00:00:00 Only [facility] 2022-08-22 2022-08-22 Orders Maureen [facility] [id number] 00:00:00 00:00:00 Only [facility] 2022-08-19 2022-08-19 Documentcarla Guzmán [facility] [id number] 00:00:00 00:00:00 [facility] 2022-08-17 2022-08-18 Surgery Shamar Michaels [facility] [id number] 17:00:00 00:31:00 [facility] 2022-08-17 2022-08-18 Anesthesia Marion Villarreal [facility] [id number] 17:27:00 00:23:00 Event Rudy Lincoln [facility] 2022-08-18 2022-08-18 [facility] [id number] 00:00:00 00:00:00 [facility] 2022-08-18 2022-08-18 Documentat Myke [facility] [id number] 00:00:00 00:00:00 [facility] 2022-08-17 2022-08-17 [facility] [id number] SLE 00:00:00 00:00:00 2022-08-17 2022-08-17 Outpatient JOSÉ ANTONIO GREENFIELD [facility] [id number] SLE 00:00:00 00:00:00 [facility] 2022-08-17 2022-08-17 Outpatient JOSÉ ANTONIO GREENFIELD [facility] [id number] SLE 00:00:00 00:00:00 [facility] 2022-08-17 2022-08-17 Travel [facility] [id number] [facility] 00:00:00 00:00:00 [facility] 2022-08-17 2022-08-17 [facility] [id number] 00:00:00 00:00:00 [facility] 2022-08-17 2022-08-17 [facility] [id number] 00:00:00 00:00:00 Only Christine [facility] 2022-08-02 2022-08-02 Office [facility], 1.2.840.1 [id number] Methodi 12:00:00 12:00:00 Visit Kostas Cruz. 50761.1.[address] 3.430.2.7 Hospit a .3.498188 l .8 2022-08-02 2022-08-02 Office [facility], 1.2.840.1 [id number] Methodi 12:00:00 12:00:00 Visit Kostas F. 92532.1.[address] 3.430.2.7 Hospit a .3.369948 l .8 2022-08-02 2022-08-02 Travel 1.2.840.1 1.2.811.581 7705 [id number] Methodi 00:00:00 00:00:[address] 3.430.2.7 0.2.7.3.698 Ho spita .3.734087 084.8 l .8 2022-08-02 2022-08-02 [facility] [id number] [place] 00:00:00 00:00:[address] 2022-08-02 2022-08-02 Travel 1.2.840.1 1.2.472.308 1379 [id number] Methodi 00:00:00 00:00:[address] 3.430.2.7 0.2.7.3.698 Ho spita .3.575113 084.8 l .8 2022-07-26 2022-07-26 Travel 1.2.840.1 1.2.053.371 3601 [id number] Methodi 00:00:00 00:00:[address] 3.430.2.7 0.2.7.3.698 Ho spita .3.231613 084.8 l .8 2022-07-26 2022-07-26 Travel 1.2.840.1 1.2.665.784 4568 345241 Methodi 00:00:00 00:00:[address] 3.430.2.7 0.2.7.3.698 Ho spita .3.946204 084.8 l .8 2022-07-19 2022-07-19 Travel 1.2.840.1 1.2.698.598 3571 181691 Methodi 00:00:00 00:00:[address] 3[address]430.2.7 0.2.7.3.698 Ho spita .3.579777 084.8 l .8 2022-07-19 2022-07-19 Travel 1.2.840.1 1.2.905.383 1200 056236 Methodi 00:00:00 00:00:[address] 3[address]430.2.7 0.2.7.3.698 Ho spita .3.149518 084.8 l .8 2022-07-15 2022-07-15 Travel 1.2.840.1 1.2.625.460 0613 217489 Methodi 00:00:00 00:00:[address] 3.430.2.7 0.2.7.3.698 Ho spita .3.791808 084.8 l .8 2022-07-15 2022-07-15 Travel 1.2.840.1 1.2.715.482 0934 [id number] Methodi 00:00:00 00:00:[address] 3.430.2.7 0.2.7.3.698 Ho spita .3.074937 084.8 l .8 2022-06-08 2022-06-08 Documentcarla Steinberg [facility] [id number] 00:00:00 00:00:00 [facility] 2022-06-08 2022-06-08 Documentat Klaus [facility] [id number] [id number] 00:00:00 00:00:00 [facility] 2022-06-02 2022-06-02 Documentcarla Stringer [facility] [id number] [id number] 00:00:00 00:00:00 [facility] 2022-06-02 2022-06-02 Documentcarla Stringer [facility] [id number] 00:00:00 00:00:00 [facility] 2022-06-01 2022-06-01 Outpatient PING [place] [facility] SLE [id number] SLE 09:46:56 11:05:10 AMBERLY 2022-06-01 2022-06-01 Christiano [place] [facility] [id number] 09:30:00 11:05:[address] [facility] 2022-06-01 2022-06-01 Toni Steinberg [facility] [id number] 00:00:00 00:00:00 Only [facility] 2022-05-18 2022-05-18 [facility] [id number] 10:14:54 23:59:00 Encounter [facility] 2022-05-18 2022-05-18 Outpatient PING [place] SLE SLE [id number] SLEH 10:14:54 23:59:00 [facility] 2022-05-18 2022-05-18 [facility] [id number] 10:14:09 23:59:00 Encounter [facility] 2022-05-18 2022-05-18 Outpatient PING [place] SLEH SLEH [id number] SLEH 10:14:09 23:59:00 [facility] 2022-05-18 2022-05-18 Orders PING Evelynjazmín [facility] [id number] 10:45:00 10:55:00 Only [facility] 2022-05-18 2022-05-18 Outpatient EL SLEH SLEH [id number] SLEH 09:40:39 09:40:39 2022-05-11 2022-05-11 Outpatient EL SLEH SLEH [id number] [facility]H 00:00:00 00:00:00 2022-04-28 2022-04-28 Documentat Myke [facility] [id number] 00:00:00 00:00:00 ion [facility] 2022-04-27 2022-04-27 Outpatient EL SLEH SLEH [id number] SLEH 00:00:00 00:00:00 2022-04-27 2022-04-27 Orders Idris [facility] [id number] 00:00:00 00:00:00 Only [facility] 2022-04-25 2022-04-25 [facility] [id number] 15:00:00 15:00:00 Encounter [facility] 2022-04-25 2022-04-25 [facility] Padmini [facility] [id number] 14:00:00 14:00:00 Encounter [facility] 2022-04-25 2022-04-25 Outpatient PING [place] [facility] [id number] SLE 00:00:00 00:00:00 [facility] 2022-04-25 2022-04-25 Outpatient PING [place], [facility] [id number] SLE 00:00:00 00:00:00 [facility] 2022-04-25 2022-04-25 Outpatient PING [place] [facility] [id number] SLE 00:00:00 00:00:00 [facility] 2022-04-25 2022-04-25 [facility] [id number] [facility] 00:00:00 00:00:00 [facility] 2022-04-12 2022-04-12 Travel 1.2.840.1 1.2.509.833 9494 [id number] Methodi 00:00:00 00:00:[address] 3[address]430.2.7 0.2.7.3.698 Ho spita .3.311048 084.8 l .8 2022-04-12 2022-04-12 Travel 1.2.840.1 1.2.723.891 2099 [id number] Methodi 00:00:00 00:00:[address] 3.430.2.7 0.2.7.3.698 Ho spita .3.834012 084.8 l .8 2022-04-08 2022-04-08 Outpatient EL SLE SLE [id number] SLEH 00:00:00 00:00:00 2022-04-08 2022-04-08 Outpatient PING [place] [facility] [id number] SLEH 00:00:00 00:00:00 [facility] 2022-04-08 2022-04-08 Outpatient [facility] SLE [id number] SLEH 00:00:00 00:00:00 [facility] 2022-04-08 2022-04-08 Documentat Idris [facility] [id number] 00:00:00 00:00:00 devon [facility] 2022-04-08 2022-04-08 Outside [facility] [id number] 00:00:00 00:00:00 Orders [facility] 2022-04-08 2022-04-08 Outside [facility] [id number] 00:00:00 00:00:00 Orders [facility] 2022-04-07 2022-04-07 [facility] [id number] 00:00:00 00:00:00 devon [facility] 2022-04-06 2022-04-06 [facility] [id number] 00:00:00 00:00:00 devon [facility] 2022-04-05 2022-04-05 Travel 1.2.840.1 1.2.321.902 6434 [id number] Methodi 00:00:00 00:00:[address] 3.430.2.7 0.2.7.3.698 Ho spita .3.780317 084.8 l .8 2022-04-05 2022-04-05 Travel 1.2.840.1 1.2.484.672 9259 [id number] Methodi 00:00:00 00:00:[address] 3.430.2.7 0.2.7.3.698 Ho spita .3.058409 084.8 l .8 2022-03-29 2022-03-29 [facility] [id number] [id number] [facility] 00:00:00 00:00:00 devon [facility] 2022-03-28 2022-03-28 Travel 1.2.840.1 1.2.061.057 1645 [id number] Methodi 00:00:00 00:00:[address] 3.430.2.7 0.2.7.3.698 Ho spita .3.312906 084.8 l .8 2022-03-28 2022-03-28 Travel 1.2.840.1 1.2.622.140 9075 645984 Methodi 00:00:00 00:00:[address] 3.430.2.7 0.2.7.3.698 Ho spita .3.853714 084.8 l .8 2022-03-23 2022-03-23 Outpatient EL [facility] [id number] [facility] 00:00:00 00:00:00 2022-03-18 2022-03-18 Documentat Myke [facility] [id number] [id number] 00:00:00 00:00:00 ion [facility] 2022-03-09 2022-03-09 Outpatient EL SLE SLE [id number] [facility] 00:00:00 00:00:00 2022-03-09 2022-03-09 Outpatient EL ADERI, SLE SLE [id number] [facility] 00:00:00 00:00:00 [facility] 2022-03-09 2022-03-09 Outpatient EL KHADERI, SLE SLE [id number] [facility] 00:00:00 00:00:00 [facility] 2022-03-04 2022-03-04 Abstract Myke [facility] [id number] 00:00:00 00:00:00 [facility] 2022-02-28 2022-02-28 Office Kostas Mora 1.2.840.1 [id number] Methodi 09:15:00 11:16:48 Visit Zehra Ruiz 76044.1.[address] 3.430.2.7 Hospit a .3.428629 l .8 2022-02-28 2022-02-28 Office Kostas MoraRandolph 1.2.840.1 [id number] Methodi 09:15:00 11:16:48 Visit Zehra Ruiz 30889.1.[address] 3.430.2.7 Hospit a .3.514429 l .8 2022-02-28 2022-02-28 Travel 1.2.840.1 1.2.134.080 8034 666807 Methodi 00:00:00 00:00:[address] 3.430.2.7 0.2.7.3.698 Ho spita .3.010235 084.8 l .8 2022-02-28 2022-02-28 Travel 1.2.840.1 1.2.151.173 6310 113188 Methodi 00:00:00 00:00:[address] 3.430.2.7 0.2.7.3.698 Ho spita .3.755163 084.8 l .8 2022-02-25 2022-02-25 Documentat Stein[place], [facility] [id number] 00:00:00 00:00:00 [facility] 2022-02-25 2022-02-25 Travel 1.2.840.1 1.2.191.515 7384 [id number] Methodi 00:00:00 00:00:[address] 3.430.2.7 0.2.7.3.698 Ho spita .3.069370 084.8 l .8 2022-02-25 2022-02-25 Travel 1.2.840.1 1.2.775.434 0136 651390 Methodi 00:00:00 00:00:[address] 3.430.2.7 0.2.7.3.698 Ho spita .3.961669 084.8 l .8 2022-02-22 2022-02-22 Travel 1.2.840.1 1.2.079.266 8823 662985 Methodi 00:00:00 00:00:[address] 3.430.2.7 0.2.7.3.698 Ho spita .3.980544 084.8 l .8 2022-02-22 2022-02-22 Travel 1.2.840.1 1.2.128.788 2826 875020 Methodi 00:00:00 00:00:[address] 3.430.2.7 0.2.7.3.698 Ho spita .3.456902 084.8 l .8 2022-02-16 2022-02-16 Travel 1.2.840.1 1.2.376.850 0802 090332 Methodi 00:00:00 00:00:[address] 3.430.2.7 0.2.7.3.698 Ho spita .3.539235 084.8 l .8 2022-02-01 2022-02-01 Documentat Idris [facility] [id number] 00:00:00 00:00:00 ion [facility] 2022-01-21 2022-01-21 Documentat Myke [facility] [id number] [id number] 00:00:00 00:00:00 ion [facility] 2022-01-18 2022-01-18 Documentat Ramirez [facility] [id number] [id number] 00:00:00 00:00:00 [facility] 2022-01-17 2022-01-17 Documentat Albaro [facility] [id number] [id number] 00:00:00 00:00:00 ion Chary [facility] 2022-01-13 2022-01-13 [facility] [id number] [id number] 00:00:00 00:00:00 devon [facility] 2022-01-10 2022-01-10 Documentat [facility] [id number] 00:00:00 00:00:00 devon Guillaumeio [facility] and [facility] 2022-01-07 2022-01-07 [id number] [facility] 00:[facility] 00:00:00 [facility] 2022-01-04 2022-01-04 [facility] [id number] 11:53:22 23:59:00 Encounter [facility] 2022-01-04 2022-01-04 [facility] [id number] [facility] 11:53:22 23:59:00 [facility] 2021-12-30 2021-12-30 Travel 1.2.840.1 [id number] [id number] Methodi 00:00:00 00:00:[address] 3.430.2.7 0.2.7.3.698 Ho spita .3.281533 084.8 l .8 2021-12-26 2021-12-26 Emergency X [facility] ERT [id number] Univers 15:39:00 18:19:00 FELISHA schmitt [facility] 2021-12-26 2021-12-26 [facility] 1.2.179.652 [id number] Univers 15:39:00 18:19:00 Felisha VENEGAS 350.1.13.[address] [facility] 4.2.7.2.686 [facility] [id number] [place] [address] [place] 2021-12-23 2021-12-23 Documentat [facility] [id number] 00:00:00 00:00:00 [facility] 2021-12-23 2021-12-23 Orders Idris [facility] [id number] 00:00:00 00:00:00 Only [facility] 2021-12-22 2021-12-22 Office PING [place] [facility] [id number] 11:00:00 11:36:33 Visit [facility] 2021-12-22 2021-12-22 Outpatient PING [place], [facility] SLE [id number] SLE 10:31:24 11:36:33 [facility] 2021-12-22 2021-12-22 Bertha Evelynjazmín [facility] [id number] 00:00:00 00:00:00 [facility] 2021-12-22 2021-12-22 Documentcarla [facility] [id number] 00:00:00 00:00:00 [facility] 2021-12-21 2021-12-21 Orders Idris [facility] [id number] 00:00:00 00:00:00 Only [facility] 2021-12-21 2021-12-21 Toni Steinberg [facility] [id number] 00:00:00 00:00:00 Only [facility] 2021-12-20 2021-12-20 Document [facility] [id number] 00:00:00 00:00:00 [facility] 2021-12-16 2021-12-16 [facility] [id number] 00:00:00 00:00:00 [facility] 2021-12-09 2021-12-09 Documentcarla [facility] [id number] 00:00:00 00:00:00 [facility] 2021-12-08 2021-12-08 Outpatient EL SLEH SLE [id number] [facility]H 00:00:00 00:00:00 2021-12-06 2021-12-06 [facility] [id number] 09:26:33 23:59:00 Encounter [facility] 2021-12-06 2021-12-06 Outpatient EL PADMINI SLEH SLE [id number] [facility]H 09:26:33 23:59:00 [facility] 2021-12-06 2021-12-06 [facility] [id number] 13:40:00 13:50:00 Only [facility] 2021-12-06 2021-12-06 Outpatient EL SLEH SLE [id number] SLEH 13:38:35 13:38:35 2021-12-06 2021-12-06 [facility] [id number] 09:25:54 09:25:54 Encounter [facility] 2021-12-06 2021-12-06 Outpatient EL PADMINI SLE SLE [id number] SLEH 09:25:54 09:25:54 [facility] 2021-12-06 2021-12-06 [facility] [id number] 09:25:37 09:25:37 Encounter [facility] 2021-12-06 2021-12-06 Outpatient EL PADMINI SLEH SLE [id number] SLEH 09:25:37 09:25:37 [facility] 2021-12-06 2021-12-06 Document [facility] [id number] 00:00:00 00:00:00 devon [facility] 2021-11-25 2021-11-25 Outpatient EL SLEH SLE [id number] SLEH 00:00:00 00:00:00 2021-11-25 2021-11-25 Outpatient EL PADMINI SLE SLE [id number] SLE 00:00:00 00:00:00 [facility] 2021-11-25 2021-11-25 Outpatient JOSÉ ANTONIO [facility] SLE [id number] SLEH 00:00:00 00:00:00 [facility] 2021-11-25 2021-11-25 Outpatient JOSÉ ANTONIO [facility] SLE [id number] SLEH 00:00:00 00:00:00 [facility] 2021-11-08 2021-11-08 Documentat Ramirez [facility] [id number] 00:00:00 00:00:00 [facility] 2021-11-08 2021-11-08 Maxine Ramirez [facility] [id number] 00:00:00 00:00:00 [facility] 2021-10-22 2021-10-22 [facility] [id number] Devoted 09:00:00 09:00:00 [id number] [facility] 2021-09-30 2021-09-30 [facility] [id number] 00:00:00 00:00:00 [facility] 2021-09-28 2021-09-28 Petra Irvin [facility] [id number] 00:00:00 00:00:00 [facility] 2021-09-08 2021-09-08 Outpatient ROLA [facility] SLE [id number] SLE 09:55:52 10:29:39 [facility] 2021-09-08 2021-09-08 Office Padmini [facility] [id number] 09:30:00 10:29:39 Visit [facility] 2021-09-08 2021-09-08 Toni Steinberg [facility] [id number] 00:00:00 00:00:00 Only [facility] 2021-09-06 2021-09-06 Rios Guzmán [facility] [id number] 00:00:00 00:00:00 [facility] 2021-09-02 2021-09-02 [facility]at [facility] [id number] 00:00:00 00:00:00 [facility] 2021-08-30 2021-08-30 Document [facility] [id number] 00:00:00 00:00:00 [facility] 2021-08-30 2021-08-30 Document [facility] [id number] 00:00:00 00:00:00 [facility] 2021-08-26 2021-08-26 [facility] [id number] 08:46:32 23:59:00 Encounter [facility] 2021-08-26 2021-08-26 Outpatient [facility], [facility] SLE [id number] SLEH 08:46:32 23:59:00 [facility] 2021-08-26 2021-08-26 Orders [facility] [id number] 09:00:00 09:10:00 Only [facility] 2021-08-26 2021-08-26 [facility] [id number] 08:42:22 08:45:00 Encounter [facility] 2021-08-26 2021-08-26 Outpatient EL PADMINI, [facility] SLE [id number] SLEH 08:42:22 08:45:00 [facility] 2021-08-26 2021-08-26 Outpatient EL SLE SLE [id number] SLEH 08:20:55 08:20:55 2021-08-26 2021-08-26 Outpatient EL SLE SLEH [id number] SLEH 00:00:00 00:00:00 2021-08-16 2021-08-16 Document [facility] [id number] 00:00:00 00:00:00 [facility] 2021-08-16 2021-08-16 Documentat Guzmán, [facility] [id number] 00:00:00 00:00:00 [facility] 2021-08-05 2021-08-05 Documentat Idris, [facility] [id number] 00:00:00 00:00:00 [facility] 2021-08-02 2021-08-02 Orders Steinberg, [facility] [id number] 00:00:00 00:00:00 Only [facility] 2021-07-28 2021-07-28 [facility] [id number] SLE 09:06:24 09:58:24 [facility] 2021-07-28 2021-07-28 Office Padmini [facility] [id number] 09:00:00 09:58:24 Visit [facility] 2021-07-27 2021-07-27 Documentat Guzmán, [facility] [id number] 00:00:00 00:00:00 [facility] 2021-07-27 2021-07-27 Toni Steinberg, [facility] [id number] 00:00:00 00:00:00 Only [facility] 2021-07-26 2021-07-26 Documentat Guzmán, [facility] [id number] 00:00:00 00:00:00 [facility] 2021-07-26 2021-07-26 Rios Guzmán, [facility] [id number] 00:00:00 00:00:00 [facility] 2021-07-14 2021-07-14 Outpatient EL SLEH SLEH [id number] [facility]H 00:00:00 00:00:00 2021-07-12 2021-07-12 Documentcarla Steinberg, [facility] [id number] 00:00[facility]00 00:00:00 [facility] 2021-07-07 2021-07-07 Outpatient EL SLEH SLEH [id number] SLEH 00:00:00 00:00:00 2021-07-07 2021-07-07 [facility] [id number] 00:00:00 00:00:00 devon [facility] 2021-06-28 2021-06-28 Documentat [facility] [id number] 00:00:00 00:00:00 [facility] 2021-06-27 2021-06-27 Telephone Maureen [facility] [id number] [facility] 00:00:00 00:00:00 [facility] 2021-05-24 2021-05-24 Tamiko Chu [facility] 1.2.840.114 [id number] Univers 00:00:00 00:00:00 Pearl VENEGAS 350.1.13.10 i [facility] 4.2.7.2.686 Anyi REZA [id number] Ri dical NAL [address] [place] [address] 2021-05-14 2021-05-14 Document [facility] [id number] [id number] 00:00:00 00:00:00 [facility] 2021-05-13 2021-05-13 Abstract Elsa [facility] [id number] 00:00:00 00:00:00 [facility] 2021-05-12 2021-05-12 Outpatient EL SLEH SLEH [id number] SLEH 00:00:00 00:00:00 2021-05-10 2021-05-10 Telephone Idris [facility] [id number] 00:00:00 00:00:00 [facility] 2021-05-03 2021-05-03 Documentat [facility] [id number] 00:00:00 00:00:00 ion [facility] 2021-04-29 2021-04-29 [facility] [id number] 10:09:55 23:59:00 Encounter [facility] 2021-04-29 2021-04-29 Outpatient [place] SLE SLE [id number] SLE 10:09:55 23:59:00 [facility] 2021-04-29 2021-04-29 Orders PING [place], [facility] [id number] 12:00:00 12:10:00 Only [facility] 2021-04-29 2021-04-29 Outpatient [place] SLE SLE [id number] SLEH 10:09:10 10:08:00 [facility] 2021-04-29 2021-04-29 [facility] [id number] 10:00:00 10:08:00 Encounter [facility] 2021-04-29 2021-04-29 [facility] [id number] 09:35:14 09:59:00 Encounter [facility] 2021-04-29 2021-04-29 Outpatient [place] SLE SLE [id number] SLE 09:35:14 09:59:00 [facility] 2021-04-29 2021-04-29 Outpatient [place]ING [place] SLE SLE [id number] SLE 09:35:00 09:34:00 [facility] 2021-04-29 2021-04-29 [facility] [id number] 09:00:00 09:34:00 Encounter [facility] 2021-04-29 2021-04-29 Outpatient PING SLE SLE [id number] SLEH 08:33:09 08:33:09 2021-04-29 2021-04-29 Outpatient PADMINI SLE [facility] [id number] SLEH 00:00:00 00:00:00 [facility] 2021-04-02 2021-04-02 [facility] 1.2.840.114 [id number] [facility] 00:00:00 00:00:00 Pearl VENEGAS 350.1.13.10 i ty of [place] [phone] Ri dicwi NAL [address] [place] [address] 2021-04-01 2021-04-01 Emergency [facility] ERT [id number] Univers 13:07:00 15:37:00 RAYA luxgaurang [facility] 2021-04-01 2021-04-01 Emergency [facility] 1.2.402.888 [id number] Univers 13:07:00 15:37:00 Raya VENEGAS 350.1.13.10 i ty [place] [id number] [address] 2021-03-18 2021-03-18 [facility] [id number] [facility] [address] 00:00:00 00:00:00 Only [facility] 2021-03-16 2021-03-16 [facility] 1.2.840.114 [id number] Univers 00:00:00 00:00:00 Pearl Venegas 350.1.13.10 i ty [place] [phone] Ri dicwi nal [address] [place] [address] 2021-03-15 2021-03-15 [facility] 1.2.840.114 [id number] Univers 00:00:00 00:00:00 Pearl Venegas 350.1.13.10 i [place] [phone] Ri dical nal 044 [facility] 2021-03-12 2021-03-12 [facility] [id number] 12:16:00 15:05:00 Encounter [facility] 2021-03-12 2021-03-12 Outpatient PING [place] [facility] Radiology [id number] SLEH 06:21:33 15:05:00 [facility] 2021-03-12 2021-03-12 Abstract Yohannes, [facility] [id number] 00:00:00 00:00:00 [facility] 2021-03-10 2021-03-10 Documentat Ramirez, [facility] [id number] 00:00:00 00:00:00 ion Jeffrey [facility] 2021-03-10 2021-03-10 Orders Derik, [facility] [id number] 00:00:00 00:00:00 Only [facility] 2021-02-23 2021-02-23 Hospital [place], [facility] [id number] 09:28:20 23:59:00 Encounter [facility] 2021-02-23 2021-02-23 Outpatient PING [place] [facility] SLE [id number] SLE 00:00:00 23:59:00 [facility] 2021-02-23 2021-02-23 Outpatient SLE SLE [id number] SLEH 10:02:57 10:02:57 2021-02-23 2021-02-23 Outside Dipesh, [facility] [id number] 00:00:00 00:00:00 [facility] 2021-02-05 2021-02-05 Outpatient Juan J GUIDRY [facility] [id number] Univers 10:50:00 10:50:00 TAM schmitt [facility] 2021-02-05 2021-02-05 Imm/Inj Nurse, Shabnam Pob Immunization [facility] 1.2.840.114 [id number] Univers 10:46:45 10:47:11 Visit Tam Guidry 350.1.13 .10 [facility] [place] 4.2.7.2.686 Anyi Reza [id number] [address] 2021-02-04 2021-02-04 Documentat Guzmán, [facility] [id number] 00:00:00 00:00:00 devon [facility] 2021-02-04 2021-02-04 Documentat Guzmán, [facility] [id number] 00:00:00 00:00:00 devon [facility] 2021-02-04 2021-02-04 Documentat Guzmán, [facility] [id number] 00:00:00 00:00:00 devon [facility] 2021-02-03 2021-02-03 Office Padmini [facility] [id number] 10:00:00 10:30:00 Visit [facility] 2021-02-03 2021-02-03 Outpatient SLEH SLEH [id number] SLEH 00:00:00 00:00:00 2021-02-03 2021-02-03 Documentcarla Irvin [facility] [id number] 00:00:00 00:00:00 [facility] 2021-02-03 2021-02-03 Rios Sheffield [facility] [id number] 00:00:00 00:00:00 devon [facility] 2021-02-03 2021-02-03 Toni Steinberg [facility] [id number] 00:00:00 00:00:00 Only Eddie Mendiola [facility] 2021-02-02 2021-02-02 Telephone Ramirez, [facility] [id number] 00:00:00 00:00:00 [facility] 2021-01-28 2021-01-28 Documentat Ramirez [facility] [id number] 00:00:00 00:00:00 [facility] 2021-01-25 2021-01-25 Documentat Idris [facility] [id number] 00:00:00 00:00:00 devon Mendiola [facility] 2021-01-21 2021-01-21 [facility], [facility] [id number] 10:27:08 23:59:00 Encounter [facility] 2021-01-21 2021-01-21 [facility] [id number] 10:27:00 10:27:00 Encounter [facility] 2021-01-21 2021-01-21 [facility], [facility] [id number] 09:58:59 10:08:59 Only [facility] 2021-01-21 2021-01-21 Outpatient KHADERI, SLEH SLEH [id number] [facility]H 00:00:00 00:00:00 [facility] 2021-01-21 2021-01-21 Outpatient KHADERI, SLEH SLEH [id number] [facility] 00:00:00 00:00:00 [facility] 2021-01-21 2021-01-21 Outpatient EL SLEH SLEH [id number] SLEH 00:00:00 00:00:00 2020-12-30 2020-12-30 Outpatient SLEH SLEH [id number] SLEH 00:00:00 00:00:00 2020-12-17 2020-12-17 Outpatient EL SLEH SLEH [id number] SLEH 00:00:00 00:00:00 2020-12-17 2020-12-17 Outpatient KHADERI, SLEH SLEH [id number] [facility] 00:00:00 00:00:00 [facility] 2020-12-17 2020-12-17 Outpatient KHADERI, SLEH SLEH [id number] [facility]H 00:00:00 00:00:00 [facility] 2020-12-02 2020-12-02 Document Emil [facility] [id number] [facility] 00:00:00 00:00:00 [facility] 2020-11-26 2020-11-26 [facility] [id number] 13:14:00 18:00:00 Encounter [facility] 2020-11-26 2020-11-26 Outpatient EL SLE SLE [id number] SLEH 00:00:00 00:00:00 2020-11-18 2020-11-18 Abstract Yohannes, [facility] [id number] 00:00:00 00:00:00 [facility] 2020-11-16 2020-11-16 Documentat [facility] [id number] 00:00:00 00:00:00 ion [facility] 2020-11-16 2020-11-16 Telephone Emil [facility] [id number] 00:00:00 00:00:00 [facility] 2020-11-10 2020-11-10 Orders Idris [facility] [id number] 00:00:00 00:00:00 Only [facility] 2020-11-05 2020-11-05 Documentat [facility] [id number] 00:00:00 00:00:00 [facility] 2020-11-04 2020-11-04 Office System, [facility] [id number] 09:38:44 10:38:44 Visit Provider [facility] 2020-11-04 2020-11-04 Outpatient EL SLE SLE [id number] SLEH 00:00:00 00:00:00 2020-10-28 2020-10-28 Office EL Padmini, [facility] [id number] 08:37:21 10:38:34 Visit [facility] 2020-10-28 2020-10-28 Outpatient EL SLEH SLE [id number] SLEH 00:00:00 00:00:00 2020-10-28 2020-10-28 Outpatient SLE SLE [id number] [facility]H 00:00:00 00:00:00 2020-10-28 2020-10-28 [facility] [id number] 00:00:00 00:00:00 [facility] 2020-10-28 2020-10-28 Documentat [facility] [id number] 00:00:00 00:00:00 ion [facility] 2020-10-27 2020-10-27 Telephone [facility] [id number] 00:00:00 00:00:00 [facility] 2020-10-21 2020-10-21 Outpatient SLEH SLE [id number] SLE 00:00:00 00:00:00 2020-10-21 2020-10-21 Telephone [facility] 1.2.840.114 [id number] Univers 00:00:00 00:00:00 Pearl Venegas 350.1.13.10 i [facility] [id number] Anyi jauregui [facility] [phone] Ri dical nal [address] [place] [address] 2020-10-20 2020-10-20 Orders [facility] [id number] 00:00:00 00:00:00 Only [facility] 2020-10-19 2020-10-19 Telephone [facility] [id number] 00:00:00 00:00:00 [facility] 2020-10-19 2020-10-19 Document [facility] [id number] 00:00:00 00:00:00 devon [facility] 2020-10-15 2020-10-15 Documentat [facility] [id number] 00:00:00 00:00:00 devon [facility] 2020-10-14 2020-10-14 Telemedici [facility] 1.2.840.114 [id number] [facility] 11:21:55 11:27:44 ne Visit Pearl Venegas 350.1.13.10 it[place] [phone] Ri dical nal 044 [facility] 2020-10-14 2020-10-14 Outpatient Juan J PIERREPORTIA [facility] [id number] Univers 09:20:00 09:20:00 PEARL schmitt [facility] 2020-10-13 2020-10-13 Refill [facility] 1.2.840.114 [id number] Univers 00:00:00 00:00:00 Pearl Venegas 350.1.13.10 i ty [facility] [id number] [phone] Ri dical nal 044 [facility] 2020-10-12 2020-10-12 Documentat [facility] [id number] 00:00:00 00:00:00 ion [facility] 2020-10-08 2020-10-08 [facility] [id number] 09:30:00 23:59:00 Encounter [facility] 2020-10-08 2020-10-08 Orders [facility] [id number] 10:50:16 11:05:16 Only [facility] 2020-10-08 2020-10-08 [facility] [id number] 08:45:00 09:29:00 Encounter [facility] 2020-10-08 2020-10-08 Outpatient PADMINI [facility] [id number] SLE 00:00:00 00:00:00 [facility] 2020-10-08 2020-10-08 Outpatient PING [facility] SLE SLE [id number] SLE 00:00:00 00:00:00 [facility] 2020-10-08 2020-10-08 [id number] [facility]:00 00:00:00 2020-10-082020-10-08 Outpatient [facility] [id number] [facility] 00:00:00 00:00:00 [facility] 2020-10-08 2020-10-08 Outpatient [facility]I [facility] [id number] SLE 00:00:00 00:00:00 [facility] 2020-10-08 2020-10-08 Outpatient PADMINI [facility] [id number] SLE 00:00:00 00:00:00 [facility] 2020-10-08 2020-10-08 Orders Steinberg [facility] [id number] [facility] [address] 00:00:00 00:00:00 Only [facility] 2020-09-21 2020-09-21 Toni Steinberg [facility] [id number] [address] 00:00:00 00:00:00 Only [facility] 2020-09-11 2020-09-11 Telephone Ruba [facility] [id number] [facility] 00:[facility]00 00:00:00 [facility] 2020-09-21 2020-09-10 Inpatient Liang, [facility] ENDO [id number] 07:00:00 11:10:20 Cherelle Avila [facility] [place] 2020-09-10 2020-09-10 Documentat Ramirez [facility] [id number] 00[facility]:00 devon Murphy [facility] 2020-09-03 2020-09-03 Documentat Mauricio [facility] [id number] [facility] 00[facility]00 ion Samira Arita [facility] 2020-09-02 2020-09-02 Documentat Emil [facility] [id number] [facility]00 devon Lindsey [facility] 2020-09-02 2020-09-02 Telephone Iker [facility] [id number] [facility] 00:[facility] 00:00:00 Vicky [facility] 2020-09-01 2020-09-01 [facility] Tiny Dan [facility] [id number] 10:00:00 23:59:00 [facility] 2020-09-01 2020-09-01 Follow-Up PING Yeh [facility] [id number] 09:48:56 10:18:56 Nickie Agustin [facility] 2020-09-01 2020-09-01 Outpatient SLE SLE [id number] [facility] 00:00:00 00:00:00 2020-09-01 2020-09-01 Outpatient JOSE FRANCISCO WHITEHEAD [facility] [id number] SLE 00:00:00 00:00:00 2020-09-01 2020-09-01 Telephone Iker [facility] [id number] 00:[facility] 00:[facility]:00 Vicky [facility] 2020-09-01 2020-09-01 Documentat Mauricio [facility] [id number] 00:[facility] 00:00:00 ion Samira Arita [facility] 2020-08-31 2020-08-31 Telephone Eiml, [facility] [id number] [facility] 00:[facility]:00 Marta Lindsey [facility] 2020-08-19 2020-08-19 Emergency [facility] 1.2.840.114 [id number] [facility] 07:35:00 10:07:00 Wendy Venegas 350.1.13.10 oskar [facility] 4.2.7.2.686 [facility] [phone] [place] [address] [address] 2020-08-19 2020-08-19 Emergency X [facility] ERT [id number] Univers 07:35:00 10:07:00 WENDY schmitt [facility] 2020-08-19 2020-08-19 Emergency [facility] 1.2.840.114 [id number] 07:35:00 10:07:00 Wendy Venegas 350.1.13.10 [place] 4.2.7.2.686 [place] [phone] 084 2020-08-19 2020-08-19 Orders Doctor SHAMAR 1.2.840.114 [id number] Univers 00:00:00 00:00:00 Only Unassigned, TOY 350.1.13.10 ity of [place] [facility] 4.2.7.2.686 Bryce as [phone] [address] 2020-08-19 2020-08-19 Orders Doctor SHAMAR 1.2.840.114 [id number] 00:00:00 00:00:00 Only Unassigned, TOY 350.1.13.10 [place] [facility] 4.2.7.2.686 [phone] 009 2020-08-03 2020-08-03 Refill [facility] 1.2.840.114 [id number] Univers 00:00:00 00:00:00 Pearl Venegas 350.1.13.10 i ty [place] [phone] Ri dical [address] 2020-08-03 2020-08-03 Refill [facility] 1.2.840.114 [id number] 00:00:00 00:00:00 Pearl Venegas 350.1.13.10 [place] 4.2.7.2.686 Professio [phone] [address] 2020-07-19 2020-07-19 Immunizati Covid [facility] [id number] [facility] 13:46:40 13:56:40 on DinaGerman sumeet [facility] 2020-07-19 2020-07-19 Outpatient EL SLE SLE [id number] SLE 00:00:00 00:00:00 2020-07-19 2020-07-19 Documentat Estela [facility] [id number] [facility] 00:00:00 00:00:00 devon [facility] 2020-07-18 2020-07-18 Outpatient EL SLE SLE [id number] [facility] 00:00:00 00:00:00 2020-06-282020-06-28 Outpatient SLEH SLEH [id number] [facility] 00:00:00 00:00:00 2020-06-25 2020-06-25 Emergency [facility] [id number] [facility] 17:04:00 23:09:00 Carolina Venegas 350.1.13.10 ity of [place] [phone] [facility] 084 [place] 2020-06-25 2020-06-25 Emergency [facility] [id number] [id number] 17:04:00 23:09:00 Carolina Venegas 350.1.13.10 [place] 4.2.7.2.686 [place] [phone] [facility] 2020-06-25 2020-06-25 Orders Doctor SHAMAR 1.2.840.114 [id number] Univers 00:00:00 00:00:00 Only Unassigned, TOY 350.1.13.10 ity of [place] [facility] 4.2.7.2.686 Bryce as [phone] [facility] 009 [place] 2020-06-25 2020-06-25 Orders Doctor SHAMAR 1.2.840.114 [id number] 00:00:00 00:00:00 Only Unassigned, TOY 350.1.13.10 [place] [facility] 4.2.7.2.686 [phone] 009 2020-06-22 2020-06-22 [facility] 1.2.840.114 [id number] [facility] 00:00:00 00:00:00 Pearl Venegas 350.1.13.10 i ty of [place] [phone] Ri dic[address] 2020-06-22 2020-06-22 [facility] 1.2.840.114 [id number] 00:00:00 00:00:00 Pearl Venegas 350.1.13.10 [place] 4.2.7.2.686 Professio [phone] [address] 2020-03-13 2020-03-13 Outpatient EL SLEH SLEH [id number] [facility] 00:00:00 00:00:00 2020-03-13 2020-03-13 Outpatient SLEH SLEH [id number] [facility]H 00:00:00 00:00:00 2020-03-13 2020-03-13 Outpatient JESSICA SLEH SLEH [id number] [facility] 00:00:00 00:00:00 [facility] 2020-03-13 2020-03-13 Outpatient EL PADMINI SLE SLEH [id number] SLEH 00:00:00 00:00:00 [facility] 2020-02-18 2020-02-18 Outpatient SLEH SLEH [id number] [facility]H 00:00:00 00:00:00 2020-02-18 2020-02-18 Outpatient EL SLEH SLEH [id number] SLEH 00:00:00 00:00:00 2020-02-18 2020-02-18 Outpatient SLEH SLEH [id number] [facility]H 00:00:00 00:00:00 2020-02-05 2020-02-05 Outpatient SLEH SLEH [id number] [facility]H 00:00:00 00:00:00 2020-02-05 2020-02-05 Outpatient PADIMNI SLE SLEH [id number] SLEH 00:00:00 00:00:00 [facility] 2020-02-05 2020-02-05 Outpatient SLEH SLEH [id number] SLEH 00:00:00 00:00:00 2020-01-28 2020-01-28 Outpatient EL SLEH SLEH [id number] SLEH 00:00:00 00:00:00 2020-01-14 2020-01-14 Outpatient EL SLEH SLEH [id number] SLEH 00:00:00 00:00:00 2019-09-11 2019-09-11 Telephone [facility] 1.2.840.114 [id number] Univers 00:00:00 00:00:00 Pearl Venegas 350.1.13.10 aung [place] 4.2.7.2.686 Anyi jauregui Professio [phone] Ri dic[address] 2019-09-11 2019-09-11 Telephone Harika [facility] 1.2.840.114 [id number] 00:00:00 00:00:00 Pearl Venegas 350.1.13.10 [place] 4.2.7.2.686 Professio [phone] [address] 2019-08-20 2019-08-20 Outpatient SLEH SLE [id number] SLEH 00:00:00 00:00:00 [id number] 2019-02-08 2019-02-08 Orders Doctor SHAMAR 1.2.840.114 [id number] Univers 00:00:00 00:00:00 Only Unassigned, TOY 350.1.13.10 ity of [place] [facility] 4.2.7.2.686 Bryce as [phone] [address] 2019-02-08 2019-02-08 Orders Doctor SHAMAR 1.2.840.114 [id number] 00:00:00 00:00:00 Only Unassigned, TOY 350.1.13.10 [place] [facility] [phone] [facility] 2019-01-31 2019-01-31 Orders Doctor SHAMAR 1.2.840.114 [id number] Univers 00:00:00 00:00:00 Only Unassigned, TOY 350.1.13.10 ity of [place] [facility] 4.2.7.2.686 Bryce as [phone] [address] 2019-01-31 2019-01-31 Orders Doctor LICONA 1.2.840.114 [id number] 00:00:00 00:00:00 Only Unassigned, TOY 350.1.13.10 [place] [facility] 4.2.7.2.[id number] [facility] 2019-01-23 2019-01-23 Telephone Brenda Rod [facility] 1.2.840.114 [id number] [facility] 00:00:00 00:00:00 Yumiko Venegas 350.1.13.10 i ty of [place] [phone] [address] 2019-01-23 2019-01-23 Telephone MarcelBrenda [facility] 1.2.840.114 [id number] 00:00:00 00:00:00 C [place] 350.1.13.10 [place] 4.2.7.2.686 Professio [phone] [address] 2019-01-21 2019-01-21 Office Brenda Rod [facility] 1.2.840.114 [id number] [facility] 15:52:08 16:26:09 Visit C [place] 350.1.13.10 i ty of [place] [phone] [address] 2019-01-21 2019-01-21 [facility] Brenda Rod [facility] 1.2.840.114 [id number] 15:52:08 16:26:09 Visit C [place] 350.1.13.10 [place] 4.2.7.2.686 Professio [phone] [address] 2019-01-17 2019-01-17 Orders Doctor SHAMAR 1.2.840.114 [id number] Univers 00:00:00 00:00:00 Only Unassigned, TOY 350.1.13.10 ity of [place] [facility] 4.2.7.2.686 Rbyce as [phone] [address] 2019-01-17 2019-01-17 Orders Doctor SHAMAR 1.2.840.114 [id number] 00:00:00 00:00:00 Only Unassigned, TOY 350.1.13.10 [place] [facility] 4.2.7.2.[id number] [facility] 2019-01-07 2019-01-07 [place] Brenda Rod [facility] 1.2.840.114 [id number] Univers 00:00:00 00:00:00 C [place] 350.1.13.10 i ty of [place] [phone] [address] 2019-01-07 2019-01-07 Orders Doctor SHAMAR 1.2.840.114 [id number] Univers 00:00:00 00:00:00 Only Unassigned, TOY 350.1.13.10 ity of [place] [facility] 4.2.7.2.686 Bryce as [phone] [address] 2019-01-02 2019-01-02 Orders Doctor SHAMAR Lawson.2.840.114 [id number] Univers 00:00:00 00:00:00 Only Unassigned, TOY 350.1.13.10 ity of [place] [facility] 4.2.7.2.686 Bryce as [phone] [address] 2019-01-02 2019-01-02 [facility] Brenda Rod [facility] 1.2.840.114 [id number] Univers 00:00:00 00:00:00 C [place] 350.1.13.10 i ty of [place] [phone] [address] 2019-01-02 2019-01-02 Orders Doctor SHAMAR 1.2.840.114 [id number] 00:00:00 00:00:00 Only Unassigned, TOY 350.1.13.10 [place] [facility] [id number] 2018-12-28 2018-12-28 Orders Doctor SHAMAR 1.2.840.114 [id number] Univers 00:00:00 00:00:00 Only Unassigned, TOY 350.1.13.10 ity of [place] [facility] 4.2.7.2.686 Bryce as [phone] [address] 2018-12-28 2018-12-28 Orders Doctor SHAMAR 1.2.840.114 [id number] 00:00:00 00:00:00 Only Unassigned, TOY 350.1.13.10 [place] [facility] [phone] 2018-12-21 2018-12-21 Brenda Amado [facility] 1.2.840.114 [id number] Univers 00:00:00 00:00:00 [place] 350.1.13.10 i ty of [place] [phone] [address] 2018-12-17 2018-12-17 Orders Doctor SHAMAR 1.2.840.114 [id number] Univers 00:00:00 00:00:00 Only Unassigned, TOY 350.1.13.10 ity of [place] [facility] 4.2.7.2.686 Bryce as [phone] [address] 2016-10-19 2016-10-19 Orders Doctor SHAMAR 1.2.840.114 [id number] Univers 00:00:00 00:00:00 Only Unassigned, TOY 350.1.13.10 ity of [place] [facility] 4.2.7.2.686 Bryce as [phone] [address] 2016-10-19 2016-10-19 Orders Doctor SHAMAR 1.2.840.114 [id number] 00:00:00 00:00:00 Only Unassigned, TOY 350.1.13.10 [place] [facility] 4.2.7.2.[id number] [facility] 2016-10-13 2016-10-13 Orders Doctor SHAMAR Lulu.2.840.114 [id number] Univers 00:00:00 00:00:00 Only Unassigned, TOY 350.1.13.10 ity of [place] [facility] 4.2.7.2.686 Bryce as [phone] [address] Results Test Description Test Time Test Comments Results Result Comments Source TACROLIMUS LEVEL 2023-01-12 14:09:37 Test Item Value Reference Range Interpretation Comme nts TACROLIMUS BLOOD (BEAKER) 8.2 ng/mL 10.0-20.[address] performed on [employer]) (test code = 657) ImmunoPlizy y system with Chemiluminescen t Microparticle Immunoassay (CM IA) technology. Route Sales Delivery Drivers Supervisor ID - ADMINCOMPREHENSIVE METABOLIC [id number] 11:57:14 Test Item Value Reference Range Interpretation [...] St age Description sq m Result G1 Norm al or [...] not appl icable for dialysis patien ts Route [employer] Supervisor ID - [id number] 11:57:14 Test Item Value Reference Range Interpretation Comments MAGNESIUM (BEAKER) (test code = 1.6 mg/dL 1.6-2.6 627) Route [employer] Supervisor ID - [id number] 11:57:14 Test Item Value Reference Range Interpretation Comments PHOSPHORUS (BEAKER) (test code = 3.0 mg/dL 2.3-4.7 604) Route [employer] Supervisor ID - ADMBILIRUBIN, [id number] 11:57:14 Test Item Value Reference Range Interpretation Comments BILIRUBIN DIRECT (BEAKER) (test 0.2 mg/dL 0.1-0.5 code = 706) Route [employer] Supervisor ID - ADMCBC W/PLT COUNT & AUTO [id number] 11:52:59 Test Item Value Reference Range Interpretation [...] GRANULOCYTES-RELATIVE PERCENT (BEAKER) (test code = 2801) [place] [id number] 10:32:40 [facility] : 1955 Sex: MThis is a non- reportable study with no Radiologist dictation. Please refer to your PACS to review images, or Doc Flowsheets for documentation on studies without images. POCT-GLUCOSE [id number] 09:08:12 Test Item Value Reference Range Interpretation Comments POC-GLUCOSE METER 150 mg/dL 70-110 H : TESTED A T [facility] ([employer]) (test code CAMBRIDG E BLDG A, = 1538) [place] 7703 0: Route [employer] Delivery Drivers Supervisor/Techni zaire ID = [id number] for Vari Myranda mae TACROLIMUS [id number] 12:27:41 Test Item Value Reference Range Interpretation Comments TACROLIMUS BLOOD 5.9 ng/mL 10.0-20.0 L Test perfor med on [employer] (BEAKER) (test code Architec t Immunoassay = 657) system with Chemiluminescen t Microparticle I mmunoassay (CMIA) technolo gy. Route [employer] Drivers Supervisor ID - [id number] 12:13:10 Test Item Value Reference Range Interpretation Comments PHOSPHORUS (BEAKER) (test code = 2.9 mg/dL 2.3-4.7 604) Route [employer] Supervisor ID - MARCOBILIRUBIN, [id number] 12:13:10 Test Item Value Reference Range Interpretation Comments BILIRUBIN DIRECT (BEAKER) (test 0.3 mg/dL 0.1-0.5 code = 706) Route [employer] Supervisor ID - MARCOCOMPREHENSIVE METABOLIC [id number] 12:13:09 Test Item Value Reference Range Interpretation [...] rted eGFR is based on the CKD-EPI 2021 equation t hat does not use a race coefficientEsti mated GFR is not as accur ate as Creatinine Bonita chaudhari in predicting glom erular filtration rate . Estimated GFR is not appl icable for dialysis patien ts Route Sales Delivery Drivers Supervisor ID - [id number] 12:13:09 Test Item Value Reference Range Interpretation Comments MAGNESIUM (BEAKER) (test code = 1.6 mg/dL 1.6-2.6 627) Route [employer] Supervisor ID - MARCOCBC W/PLT COUNT & AUTO [id number] 11:14:49 Test Item Value Reference Range Interpretation [...] PERCENT (BEAKER) (test code = 2801) TACROLIMUS [id number] 12:20:54 Test Item Value Reference Range Interpretation Comments TACROLIMUS BLOOD 7.5 ng/mL 10.0-20.0 L Test perfor med on [employer] (BEAKER) (test code Architec t Immunoassay = 657) system with Chemiluminescen t Microparticle I mmunoassay (CMIA) technolo gy. Route Sales Delivery Drivers Supervisor ID - ADMINCOMPREHENSIVE METABOLIC [id number] 10:06:05 Test Item Value Reference Range Interpretation [...] not appl icable for dialysis patien ts Route [employer] D[employer] Supervisor ID - [id number] 10:06:05 Test Item Value Reference Range Interpretation Comments MAGNESIUM (BEAKER) (test code = 1.5 mg/dL 1.6-2.6 L 627) Route [employer] Drivers Supervisor ID - [id number] 10:06:05 Test Item Value Reference Range Interpretation Comments PHOSPHORUS (BEAKER) (test code = 2.3 mg/dL 2.3-4.7 604) Route [employer] Supervisor ID - BEBOOBILIRUBIN, [id number] 10:06:05 Test Item Value Reference Range Interpretation Comments BILIRUBIN DIRECT (BEAKER) (test 0.2 mg/dL 0.1-0.5 code = 706) Route [employer]rivers Supervisor ID - MARCOCBC W/PLT COUNT & AUTO [id number] 09:55:34 Test Item Value Reference Range Interpretation [...] 417) IMMATURE 0.90 % 0.00-1.00 GRANULOCYTES-RELATIVE PERCENT (BEAKER) (test code = 2801) POCT-GLUCOSE [id number] 11:26:26 Test Item Value Reference Range Interpretation Comments POC-GLUCOSE METER 213 mg/dL 70-110 H : TESTED A T [facility] 6720 (BEAKER) (test code = NICOLE Arita [facility], 1538) [address]: Route [employer] Delivery Drivers Supervisor/Techni zaire ID = [id number] for CORY NAPOLES TACROLIMUS [id number] 11:23:49 Test Item Value Reference Range Interpretation Comments TACROLIMUS BLOOD 12.0 ng/mL 10.0-20.0 Test perfor med on [employer] (BEAKER) (test code Architec t Immunoassay = 657) system with Chemiluminescen t Microparticle Immunoassay (CM IA) technology. Route [employer] Drivers Supervisor ID - ADMINPOCT-GLUCOSE [id number] 07:27:00 Test Item Value Reference Range Interpretation Comments POC-GLUCOSE METER 130 mg/dL 70-110 H : TESTED A T [facility] 6720 (BEAKER) (test code = NICOLE Arita [place], 1538) [address]: Route [employer] Drivers Supervisor/Techni zaire ID = [id number] for CORY NAPOLES PHOSPHATIDYLETHANOL, [id number] 07:25:18 Test Item Value Reference Range Interpretation Comments PHOSPHATIDYLETHANOL (PETH) S ee scanned (test code = 9502954) report . HEPATIC FUNCTION [id number] 05:40:08 Test Item Value Reference Range Interpretation [...] (test code = 45 U/L 6-55 347) Route [employer] Supervisor ID - [id number] 05:40:07 Test Item Value Reference Range Interpretation Comments PHOSPHORUS (BEAKER) (test code = 3.3 mg/dL 2.3-4.7 604) Route [employer] Drivers Supervisor ID - MMBASIC METABOLIC [id number] 05:40:06 Test Item Value Reference Range Interpretation [...] not appl icable for dialysis patien ts Route Sales Delivery Drivers Supervisor ID - [id number] 05:40:06 Test Item Value Reference Range Interpretation Comments MAGNESIUM (BEAKER) (test code = 1.5 mg/dL 1.6-2.6 L 627) Route [employer] Drivers Supervisor ID - MMPROTHROMBIN [id number] 05:23:06 Test Item Value Reference Range Interpretation Comments PROTIME (BEAKER) (test code = 13.8 seconds 11.9-14.2 759) INR (BEAKER) (test code = 370) 1.09 <=5.90 RECOMMENDED COUMADIN/WARFARIN INR THERAPY RANGESSTANDARD DOSE: 2.0 - 3.0 Includes: PROPHYLAXIS for venous thrombosis, systemic embolization; TREATMENT for venous thrombosis and/or pulmonary embolus.HIGH RISK: Target INR is 2.5-3.5 for patients with mechanical heart valves.CBC W/PLT COUNT & AUTO [id number] 05:16:31 Test Item Value Reference Range Interpretation [...] PERCENT (BEAKER) (test code = 2801) POCT-GLUCOSE [id number] 21:10:11 Test Item Value Reference Range Interpretation Comments POC-GLUCOSE METER 234 mg/dL 70-110 H : TESTED Lana Davis [facility] 6720 (BEAKER) (test code = NICOLE [place], 1538) [address]: Route Sales Delivery Drivers Supervisor/Techni zaire ID = [id number] for MARGOT SHIPLEY POCT-GLUCOSE [id number] 16:22:36 Test Item Value Reference Range Interpretation Comments POC-GLUCOSE METER 274 mg/dL 70-110 H : TESTED A T [facility] 67[address] ([employer]) (test code = NICOLE [place], 1538) [address]: Route Sales Delivery Drivers Supervisor/Techni zaire ID = [id number] for CORY NAPOLES TACROLIMUS [id number] 14:17:03 Test Item Value Reference Range Interpretation Comments TACROLIMUS BLOOD 22.4 ng/mL 10.0-20.0 H Test perfor med on [employer] (BEAKER) (test code Architec t Immunoassay = 657) system with Chemiluminescen t Microparticle Immunoassay (CM IA) technology. 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 In comparison to the prior biopsy [id number] the current biopsy shows decreased central venular [...] by telephonic call on 11/19/2022 around 1:30 [id number]/P liver transplant; rejectionA. Biopsy, LiverReceived in formalin labeled with the patient's name, medical record number and "liver biopsy" are 3 scanlon soft tissue cores ranging in size from 0.6-1.6 cm, which are submitted in toto in A1.Katina Banks2 liver cores with adequate number of portal triads and preserved hepatic parenchyma. Most ofthe portal triads show significant bile ductular reaction [...] significant fibrosis PASD stain is negative for antitrypsinglobules. Iron stain is negative for increased ironThe interpretation of this case included the use of immunohistochemistry or special stains.Control Slides Examined: In-house known positive controls were evaluated along with the test tissue. These control slides run alongside of the patients sample show appropriate staining. Internal positive and negative controls when available are evaluated Immunohistochemistry technical testing was performed at [facility], Pathology Laboratory where it was developed and [...] qualified to perform high complexity clinical laboratory testing.[facility], Department of Pathology, [address] [place] [address], [facility], [address] [place], [place] [id number], [facility]University [facility], [facility], [address] [place] [address], BLBU-GLUCOSE [id number] 11:47:19 Test Item Value Reference Range Interpretation Comments POC-GLUCOSE METER 222 mg/dL 70-110 H : TESTED Lana Davis [facility] 6720 ([place]) (test code = NICOLE [place], 1538) [address]: Route Sales Delivery Drivers Supervisor/Techni zaire ID = [id number] for CORY NAPOLES LIVER [id number] 10:35:09 [facility] 1955 Sex: MPROCEDURE: Image- guided biopsyProcedural PersonnelAttending physician(s): Javier HALLMANre- procedure diagnosis: Transplant liver dysfunctionPost-procedure diagnosis: SameIndication: [...] target andbiopsy was performed.Core needle biopsy device: Medax MedPackLinkore needle size: 16 gaugeNumber of core specimens: 2Needle removalThe biopsy needle was removed and a sterile dressing was applied.Tract embolization: NoneImaging following biopsyPost-biopsy imaging: UltrasoundPost-biopsy imaging findings: No immediate complicationsAdditional DetailsAdditional description of procedure: NoneEquipment details: NoneSpecimens removed: Biopsy samples as detailed aboveEstimated blood loss (mL): Less than 5Electronically Signed By: Javier Griffin11/23/2022 10:37 CDTWorkstation Name: [id number] METER 2022-11-23 07:37:31 Test Item Value Reference Range Interpretation Comments POC-GLUCOSE METER 123 mg/dL 70-110 H : [facility] (BEAKER) (test code = NICOLE Arita [facility], 1538) [address]: Route Sales Delivery Drivers Supervisor/Techni zaire ID = [id number] for GRISEL BLOOM CORY [id number] 07:30:16 Test Item Value Reference Range Interpretation Comments MAGNESIUM (BEAKER) (test code = 1.6 mg/dL 1.6-2.6 627) Route [employer] Drivers Supervisor ID - [id number] 07:30:16 Test Item Value Reference Range Interpretation Comments PHOSPHORUS (BEAKER) (test code = 4.3 mg/dL 2.3-4.7 604) Route Sales Delivery Drivers Supervisor ID - ADMINHEPATIC FUNCTION [id number] 07:30:16 Test Item Value Reference Range Interpretation [...] (test code = 49 U/L 6-55 347) Route Sales Delivery Drivers Supervisor ID - ADMINBASIC METABOLIC [id number] 07:30:15 Test Item Value Reference Range Interpretation [...] not appl icable for dialysis patien ts Route Sales Delivery Drivers Supervisor ID - ADMINCBC W/PLT COUNT & AUTO [id number] 06:02:34 Test Item Value Reference Range Interpretation [...] PERCENT (BEAKER) (test code = 2801) PROTHROMBIN TIME/[id number] 05:35:52 Test Item Value Reference Range Interpretation Comments PROTIME (BEAKER) (test code = 14.4 seconds 11.9-14.2 H 759) INR ([facility] [employer]) (test code = 370) 1.19 <=5.90 RECOMMENDED COUMADIN/WARFARIN INR THERAPY RANGESSTANDARD DOSE: 2.0 - 3.0 Includes: PROPHYLAXIS for venous thrombosis, systemic embolization; TREATMENT for venous thrombosis and/or pulmonary embolus.HIGH RISK: Target INR is 2.5-3.5 for patients with mechanical heart valves.POCT-GLUCOSE [id number] 21:04:34 Test Item Value Reference Range Interpretation Comments POC-GLUCOSE METER 177 mg/dL 70-110 H : TESTED A T [facility] ([facility]) (test code = [facility], 1538) 89344: Route Sales Delivery Drivers Supervisor/Techni zaire ID = [id number] for MARGOT SHIPLEY POCT-GLUCOSE [id number] 17:42:02 Test Item Value Reference Range Interpretation Comments POC-GLUCOSE METER 132 mg/dL 70-110 H : TESTED A T [facility] ([facility]) (test code = [facility], 1538) 18576: Route Sales Delivery Drivers Supervisor/Techni zaire ID = [id number] for Dain Cortes POCT-GLUCOSE [id number] 15:34:15 Test Item Value Reference Range Interpretation Comments POC-GLUCOSE METER 154 mg/dL 70-110 H : TESTED A T [facility] ([employer]) (test code = [facility], 1538) 70897: Route Sales Delivery Drivers Supervisor/Techni zaire ID = [id number] for AURORA MAXIMOSATURNINO TRAN POCT-GLUCOSE [id number] 11:54:49 Test Item Value Reference Range Interpretation Comments POC-GLUCOSE METER 153 mg/dL 70-110 H : TESTED A T [facility] ([employer]) (test code = [facility], 1538) 07283: Route Sales Delivery Drivers Supervisor/Techni zaire ID = [id number] for EILEEN COONEY TACROLIMUS [id number] 10:15:18 Test Item Value Reference Range Interpretation Comments TACROLIMUS BLOOD 17.3 ng/mL 10.0-20.0 Test perfor med on [place] ([employer]) (test code Architec t Immunoassay = 657) system with Chemiluminescen t Microparticle Immunoassay (CM IA) technology. Route Sales Delivery Drivers Supervisor ID - ADMINPOCT-GLUCOSE [id number] 08:59:19 Test Item Value Reference Range Interpretation Comments POC-GLUCOSE METER 137 mg/dL 70-110 H : TESTED A T [facility] 6720 (BEAKER) (test code = NICOLE Arita [place], 1538) 83919: Route Sales Delivery Drivers Supervisor/Techni zaire ID = [id number] for YUE MCMAHON BLOOD [id number] 07:00:13 Test Item Value Reference Range Interpretation Comments CULTURE (BEAKER) (test No growth in 5 days code = 1095) BLOOD [id number] 07:00:12 Test Item Value Reference Range Interpretation Comments CULTURE (BEAKER) (test No growth in 5 days code = 1095) HEPATIC FUNCTION [id number] 04:48:07 Test Item Value Reference Range Interpretation [...] (test code = 45 U/L 6-55 347) Route Sales Delivery Drivers Supervisor ID - [id number] 04:48:06 Test Item Value Reference Range Interpretation Comments MAGNESIUM (BEAKER) (test code = 1.7 mg/dL 1.6-2.6 627) Route Sales Delivery Drivers Supervisor ID - [id number] 04:48:06 Test Item Value Reference Range Interpretation Comments PHOSPHORUS (BEAKER) (test code = 5.3 mg/dL 2.3-4.7 H 604) Route Sales Delivery Drivers Supervisor ID - ADMINBASIC METABOLIC [id number] 04:48:05 Test Item Value Reference Range Interpretation [...] not appl icable for dialysis patien ts Route Sales Delivery Drivers Supervisor ID - ADMINPROTHROMBIN TIME/[id number] 04:29:24 Test Item Value Reference Range Interpretation [...] mechanical heart valves.CBC W/PLT COUNT & AUTO [id number] 04:25:20 Test Item Value Reference Range Interpretation [...] PERCENT (BEAKER) (test code = 2801) POCT-GLUCOSE [id number] 20:58:50 Test Item Value Reference Range Interpretation Comments POC-GLUCOSE METER 170 mg/dL 70-110 H : TESTED A T [facility] 6720 (BEAKER) (test code = [facility], 1538) 51714: Route Sales Delivery Drivers Supervisor/Techni zaire ID = [id number] for MARGOT SHIPLEY POCT-GLUCOSE [id number] 16:52:48 Test Item Value Reference Range Interpretation Comments POC-GLUCOSE METER 394 mg/dL 70-110 H : TESTED A T [facility] 67[facility] ([facility]) (test code = [facility], 1538) 71727: Route Sales Delivery Drivers Supervisor/Techni zaire ID = [id number] for ELDON TANGA POCT-GLUCOSE [id number] 11:28:39 Test Item Value Reference Range Interpretation Comments POC-GLUCOSE METER 177 mg/dL 70-110 H : TESTED A T [facility] 67[facility] ([facility]) (test code = [facility], 1538) 22849: Route Sales Delivery Drivers Supervisor/Techni zaire ID = [id number] for ELDON TANGA TACROLIMUS [id number] 09:47:18 Test Item Value Reference Range Interpretation Comments TACROLIMUS BLOOD 11.1 ng/mL 10.0-20.0 Test perfor med on [place] ([facility]) (test code Architec t Immunoassay = 657) system with Chemiluminescen t Microparticle Immunoassay (CM IA) technology. Route Sales Delivery Drivers Supervisor ID - ADMINPOCT-GLUCOSE [id number] 08:02:14 Test Item Value Reference Range Interpretation Comments POC-GLUCOSE METER 131 mg/dL 70-110 H : TESTED A T [facility] 67[facility] ([facility]) (test code = [facility], 1538) 02609: Route Sales Delivery Drivers Supervisor/Techni zaire ID = [id number] for TINY TANGCIA [id number] 05:31:40 Test Item Value Reference Range Interpretation Comments PHOSPHORUS (BEAKER) (test code = 4.7 mg/dL 2.3-4.7 604) Route Sales Delivery Drivers Supervisor ID - ADMINHEPATIC FUNCTION [id number] 05:31:40 Test Item Value Reference Range Interpretation [...] (test code = 47 U/L 6-55 347) Route Sales Delivery Drivers Supervisor ID - [id number] 05:31:39 Test Item Value Reference Range Interpretation Comments MAGNESIUM (BEAKER) (test code = 1.6 mg/dL 1.6-2.6 627) Route Sales Delivery Drivers Supervisor ID - ADMINBASIC METABOLIC [id number] 05:31:38 Test Item Value Reference Range Interpretation [...] not appl icable for dialysis patien ts Route Sales Delivery Drivers Supervisor ID - ADMINPROTHROMBIN TIME/[id number] 05:10:43 Test Item Value Reference Range Interpretation [...] mechanical heart valves.CBC W/PLT COUNT & AUTO [id number] 04:51:58 Test Item Value Reference Range Interpretation [...] PERCENT (BEAKER) (test code = 2801) POCT-GLUCOSE [id number] 22:28:09 Test Item Value Reference Range Interpretation Comments POC-GLUCOSE METER 119 mg/dL 70-110 H : TESTED A T [facility] 6720 (BEAKER) (test code = NICOLE Arita [facility], 1538) 53830: Route Sales Delivery Drivers Supervisor/Techni zaire ID = [id number] for HAYDEN SERVIN XR ABDOMEN/KUB 1 VIEW [id number] 19:04:06 [facility] 1955 Sex: MONE VIEW ABDOMENHISTORY: Biliary stentCOMPARISON:09/19/2022FINDINGS:2 supine AP images of the abdomen were obtained.There is a stent in the region of the common bile duct. This is similarin position to the priorabdominal radiograph.No dilated bowel loops are visualized. There is gas in nondistendedstomach.The lung bases appear clear.Electronically Signed By: Curtis Almanza11/20/2022 19:06 CDTWorkstation Name: [id number] 16:14:08 Test Item Value Reference Range Interpretation Comments POC-GLUCOSE METER 238 mg/dL 70-110 H : TESTED A T [facility] 67[facility] ([facility]) (test code = [facility], 1538) 95011: Route Sales Delivery Drivers Supervisor/Techni zaire ID = [id number] for PJRICK MERLE CORY TACROLIMUS [id number] 11:43:44 Test Item Value Reference Range Interpretation Comments TACROLIMUS BLOOD 12.9 ng/mL 10.0-20.0 Test perfor med on [place] ([facility]) (test code Architec t Immunoassay = 657) system with Chemiluminescen t Microparticle Immunoassay (CM IA) technology. Route Sales Delivery Drivers Supervisor ID - mmPOCT-GLUCOSE [id number] 11:19:44 Test Item Value Reference Range Interpretation Comments POC-GLUCOSE METER 214 mg/dL 70-110 H : TESTED A T [facility] 67[facility] ([facility]) (test code = [facility], 1538) 06419: Route Sales Delivery Drivers Supervisor/Techni zaire ID = [id number] for NIGELTRISTIN BLOOM CORY POCT-GLUCOSE [id number] 07:33:49 Test Item Value Reference Range Interpretation Comments POC-GLUCOSE METER 135 mg/dL 70-110 H : TESTED A T [facility] 6720 ([facility]) (test code = [facility], 1538) 67281: Route Sales Delivery Drivers Supervisor/Techni zaire ID = [id number] for OLIVAIRAM BLOOM CORY CBC W/PLT COUNT & AUTO [id number] 05:46:42 Test Item Value Reference Range Interpretation Comments WHITE BLOOD CELL COUNT 6.6 K/ L 3.5-10.5 ([facility]) (test code = 775) RED BLOOD CELL COUNT 5.51 M/ L 4.63-6.08 ([facility]) (test code = 761) HEMOGLOBIN ([facility]) 10.8 GM/DL 13.7-17.5 L (test code = 410) HEMATOCRIT ([facility]) 37.9 % 40.1-51.0 L (test code = 411) MEAN CORPUSCULAR 69 fL 79-92 L VOLUME ([facility]) (test code = 753) MEAN CORPUSCULAR 19.6 [...] (BEAKER) (test code = 2801) HEPATIC FUNCTION [id number] 05:45:17 Test Item Value Reference Range Interpretation [...] code = 58 U/L 6-55 H 347) Route Sales Delivery Drivers Supervisor ID - [id number] 05:45:16 Test Item Value Reference Range Interpretation Comments MAGNESIUM (BEAKER) (test code = 1.6 mg/dL 1.6-2.6 627) Route Sales Delivery Drivers Supervisor ID - [id number] 05:45:16 Test Item Value Reference Range Interpretation Comments PHOSPHORUS (BEAKER) (test code = 5.0 mg/dL 2.3-4.7 H 604) Route Sales Delivery Drivers Supervisor ID - mmBASIC METABOLIC [id number] 05:45:15 Test Item Value Reference Range Interpretation [...] (test code = 697) EGFR (BEAKER) 100 Interpretati on of eGFR (test code = mL/min/1.73 values [...] not appl icable for dialysis patien ts Route Sales Delivery Drivers Supervisor ID - mmPROTHROMBIN TIME/[id number] 05:39:46 Test Item Value Reference Range Interpretation Comments PROTIME ([employer]) (test code = 14.9 seconds 11.9-14.2 H 759) INR ([facility] [facility]) (test code = 370) 1.24 <=5.90 RECOMMENDED COUMADIN/WARFARIN INR THERAPY RANGESSTANDARD DOSE: 2.0 - 3.0 Includes: PROPHYLAXIS for venous thrombosis, systemic embolization; TREATMENT for venous thrombosis and/or pulmonary embolus.HIGH RISK: Target INR is 2.5-3.5 for patients with mechanical heart valves.POCT-GLUCOSE [id number] 21:24:11 Test Item Value Reference Range Interpretation Comments POC-GLUCOSE METER 174 mg/dL 70-110 H : TESTED A T [facility] 6720 ([employer]) (test code = [facility], 1538) 49967: Route Sales Delivery Drivers Supervisor/Techni zaire ID = [id number] for UMANUELA CHERRYI POCT-GLUCOSE [id number] 16:47:16 Test Item Value Reference Range Interpretation Comments POC-GLUCOSE METER 292 mg/dL 70-110 H : TESTED A T [facility] 67[facility] ([employer]) (test code = [facility], 1538) 36391: Route Sales Delivery Drivers Supervisor/Techni zaire ID = [id number] for Go ngora, Russell POCT-GLUCOSE [id number] 13:07:40 Test Item Value Reference Range Interpretation Comments POC-GLUCOSE METER 195 mg/dL 70-110 H : TESTED A T [facility] 67[facility] ([facility] [employer]) (test code = [facility], 1538) 29498: Route Sales Delivery Drivers Supervisor/Techni zaire ID = [id number] for Go ngora, Russell TACROLIMUS [id number] 10:57:21 Test Item Value Reference Range Interpretation Comments TACROLIMUS BLOOD 7.3 ng/mL 10.0-20.0 L Test perfor med on [place] ([employer]) (test code Architec t Immunoassay = 657) system with Chemiluminescen t Microparticle I mmunoassay (CMIA) omi cornejo. Route Sales Delivery Drivers Supervisor ID - ADMINMR ABDOMEN WITH & WITHOUT IV [id number] 08:47:05 [facility] : 1955 Sex: MMRI of [...] Signed By: Radha Royal11/19/2022 08:49 CDTWorkstation Name: [id number] METER 2022-11-19 07:54:27 Test Item Value Reference Range Interpretation Comments POC-GLUCOSE METER 199 mg/dL 70-110 H : TESTED A T [facility] 6720 (BEAKER) (test code = [place], 1538) 97097: Route Sales Delivery Drivers Supervisor/Techni zaire ID = [id number] for Russell Adame [id number] 06:41:58 Test Item Value Reference Range Interpretation Comments MAGNESIUM (BEAKER) (test code = 1.8 mg/dL 1.6-2.6 627) Route Sales Delivery Drivers Supervisor ID - [id number] 06:41:58 Test Item Value Reference Range Interpretation Comments PHOSPHORUS (BEAKER) (test code = 4.2 mg/dL 2.3-4.7 604) Route Sales Delivery Drivers Supervisor ID - ADMINHEPATIC FUNCTION [id number] 06:41:58 Test Item Value Reference Range Interpretation [...] code = 65 U/L 6-55 H 347) Route Sales Delivery Drivers Supervisor ID - ADMINBASIC METABOLIC [id number] 06:41:57 Test Item Value Reference Range Interpretation [...] not appl icable for dialysis patien ts Route Sales Delivery Drivers Supervisor ID - ADMINPROTHROMBIN TIME/[id number] 06:29:40 Test Item Value Reference Range Interpretation Comments PROTIME (BEAKER) (test code = 13.9 seconds 11.9-14.2 759) INR (BEAKER) (test code = 370) 1.09 <=5.90 RECOMMENDED COUMADIN/WARFARIN INR THERAPY RANGESSTANDARD DOSE: 2.0 - 3.0 Includes: PROPHYLAXIS for venous thrombosis, systemic embolization; TREATMENT for venous thrombosis and/or pulmonary embolus.HIGH RISK: Target INR is 2.5-3.5 for patients with mechanical heart valves.CBC W/PLT COUNT & AUTO [id number] 06:27:47 Test Item Value Reference Range Interpretation [...] PERCENT (BEAKER) (test code = 2801) POCT-GLUCOSE [id number] 22:29:55 Test Item Value Reference Range Interpretation Comments POC-GLUCOSE METER 200 mg/dL 70-110 H : TESTED A T [facility] 6720 (BEAKER) (test code = NICOLE [place], 1538) 43964: Route Sales Delivery Drivers Supervisor/Techni zaire ID = [id number] for Ar enas, Sherman POCT-GLUCOSE [id number] 16:34:24 Test Item Value Reference Range Interpretation Comments POC-GLUCOSE METER 285 mg/dL 70-110 H : TESTED A T [facility] 6720 (AKER) (test code = [facility], 1538) 52321: Route Sales Delivery Drivers Supervisor/Techni zaire ID = [id number] for Go ngora, Russell POCT-GLUCOSE [id number] 13:03:11 Test Item Value Reference Range Interpretation Comments POC-GLUCOSE METER 176 mg/dL 70-110 H : TESTED A T [facility] 6720 (AKER) (test code = [facility], 1538) 02809: Route Sales Delivery Drivers Supervisor/Techni zaire ID = [id number] for Go ngora, Russell TACROLIMUS [id number] 10:24:59 Test Item Value Reference Range Interpretation Comments TACROLIMUS BLOOD 7.0 ng/mL 10.0-20.0 L Test perfor med on [place] ([facility]) (test code Architec t Immunoassay = 657) system with Chemiluminescen t Microparticle I mmunoassay (CMIA) technolo gy. Route Sales Delivery Drivers Supervisor ID - ADMINPOCT-GLUCOSE [id number] 08:31:31 Test Item Value Reference Range Interpretation Comments POC-GLUCOSE METER 131 mg/dL 70-110 H : TESTED A T [facility] 6720 (AKER) (test code = [facility], 153) 91356: Route Sales Delivery Drivers Supervisor/Techni zaire ID = [id number] for Go ngora, Russell [id number] 06:38:31 Test Item Value Reference Range Interpretation Comments PHOSPHORUS (BEAKER) (test code = 4.3 mg/dL 2.3-4.7 604) Route Sales Delivery Drivers Supervisor ID - MMHEPATIC FUNCTION [id number] 06:38:31 Test Item Value Reference Range Interpretation [...] code = 82 U/L 6-55 H 347) Route Sales Delivery Drivers Supervisor ID - MMBASIC METABOLIC [id number] 06:38:30 Test Item Value Reference Range Interpretation [...] not appl icable for dialysis patien ts Route Sales Delivery Drivers Supervisor ID - [id number] 06:38:30 Test Item Value Reference Range Interpretation Comments MAGNESIUM (BEAKER) (test code = 1.6 mg/dL 1.6-2.6 627) Route Sales Delivery Drivers Supervisor ID - MMCBC W/PLT COUNT & AUTO [id number] 06:23:58 Test Item Value Reference Range Interpretation [...] PERCENT (BEAKER) (test code = 2801) PROTHROMBIN TIME/[id number] 06:09:55 Test Item Value Reference Range Interpretation Comments PROTIME ([facility]) (test code = 14.9 seconds 11.9-14.2 H 759) INR ([facility]) (test code = 370) 1.24 <=5.90 RECOMMENDED COUMADIN/WARFARIN INR THERAPY RANGESSTANDARD DOSE: 2.0 - 3.0 Includes: PROPHYLAXIS for venous thrombosis, systemic embolization; TREATMENT for venous thrombosis and/or pulmonary embolus.HIGH RISK: Target INR is 2.5-3.5 for patients with mechanical heart valves.POCT-GLUCOSE [id number] 22:21:38 Test Item Value Reference Range Interpretation Comments POC-GLUCOSE METER 226 mg/dL 70-110 H : TESTED A T [facility] 6720 ([facility]) (test code = [facility], 1538) 02546: Route Sales Delivery Drivers Supervisor/Techni zaire ID = [id number] for MS IBI, MNZANEISI POCT-GLUCOSE [id number] 16:45:51 Test Item Value Reference Range Interpretation Comments POC-GLUCOSE METER 320 mg/dL 70-110 H : TESTED A T [facility] 67[facility] ([employer]) (test code = [facility], 1538) 35709: Route Sales Delivery Drivers Supervisor/Techni zaire ID = [id number] for OR DINARIO, ANTONETTE POCT-GLUCOSE [id number] 12:48:07 Test Item Value Reference Range Interpretation Comments POC-GLUCOSE METER 196 mg/dL 70-110 H : TESTED A T [facility] 6720 ([employer]) (test code = [facility], 1538) 43718: Route Sales Delivery Drivers Supervisor/Techni zaire ID = [id number] for Ly , Tram TACROLIMUS [id number] 09:59:48 Test Item Value Reference Range Interpretation Comments TACROLIMUS BLOOD 5.5 ng/mL 10.0-20.0 L Test perfor med on [place] ([facility]) (test code Architec t Immunoassay = 657) system with Chemiluminescen t Microparticle I mmunoassay (CMIA) omi khanna Route Sales Delivery Drivers Supervisor ID - ADMINPOCT-GLUCOSE [id number] 09:03:07 Test Item Value Reference Range Interpretation Comments POC-GLUCOSE METER 162 mg/dL 70-110 H : TESTED A T [facility] 6720 (BEAKER) (test code = [place], 1538) 77701: Route Sales Delivery Drivers Supervisor/Techni zaire ID = [id number] for Wr ight (DivFlt), [facility] HEPATIC FUNCTION [id number] 07:02:14 Test Item Value Reference Range Interpretation [...] code = 102 U/L 6-55 H 347) Route Sales Delivery Drivers Supervisor ID - MMBASIC METABOLIC [id number] 07:02:13 Test Item Value Reference Range Interpretation [...] not appl icable for dialysis patien ts Route Sales Delivery Drivers Supervisor ID - [id number] 07:02:13 Test Item Value Reference Range Interpretation Comments MAGNESIUM (BEAKER) (test code = 1.5 mg/dL 1.6-2.6 L 627) Route Sales Delivery Drivers Supervisor ID - [id number] 07:02:13 Test Item Value Reference Range Interpretation Comments PHOSPHORUS (BEAKER) (test code = 3.8 mg/dL 2.3-4.7 604) Route Sales Delivery Drivers Supervisor ID - MMPROTHROMBIN TIME/[id number] 06:41:20 Test Item Value Reference Range Interpretation [...] mechanical heart valves.CBC W/PLT COUNT & AUTO [id number] 06:34:15 Test Item Value Reference Range Interpretation [...] code = 2801) URINALYSIS W/ REFLEX URINE [id number] 23:16:17 Test Item Value Reference Range Interpretation [...] = 516) SOURCE(BEAKER) (test code = 2795) Route Sales Delivery Drivers Supervisor ID - [auto]Route Sales Delivery Drivers Supervisor ID - techUS [id number] 21:21:33 [facility] : 1955 Sex: [...] Signed By: Jesse Sweeney11/16/2022 21:24 CDTWorkstation Name: [id number] ABDOMEN [id number] 21:21:33 [facility] : 1955 Sex: MEXAM/TECHNIQUE: [...] Signed By: Jesse Sweeney11/16/2022 21:24 CDTWorkstation Name: [id number] [id number] 21:16:37 Test Item Value Reference Range Interpretation Comments POC-GLUCOSE METER 134 mg/dL 70-110 H : [facility]ED [facility] T [facility] (test code = [place], 1538) 08350: Route Sales Delivery Drivers Supervisor/Techni zaire ID = [id number] for YAEL SAENZ XR CHEST 1 VIEW PORTABLE / [id number] 20:16:52 [facility] : 1955 Sex: MChest, 1view, 11/16/2022 7:21 PM.History: History of lung transplant.Comparison: 09/05/2022.Discussion: The cardiomediastinal silhouette and pulmonary vasculatureare within normal limits for a portable exam. Thelungs are clearwithout evidence of consolidation or effusion. The soft tissues andosseous structuresare intact.IMPRESSION:No acute cardiopulmonary abnormality.Electronically Signed By: Marion Vanessa/ 20:19 CDTWorkstation Name: [id number] 12:11:38 Test Item Value Reference Range Interpretation Comments TACROLIMUS BLOOD 12.4 ng/mL 10.0-20.0 Test perfor med on [place] (BEAKER) (test code Architec t Immunoassay = 657) system with Chemiluminescen t Microparticle Immunoassay (CM IA) technology. Route Sales Delivery Drivers Supervisor ID - [id number] 10:58:16 Test Item Value Reference Range Interpretation Comments MAGNESIUM (BEAKER) (test code = 1.5 mg/dL 1.6-2.6 L 627) [id number] 10:58:16 Test Item Value Reference Range Interpretation Comments PHOSPHORUS (BEAKER) (test code = 3.8 mg/dL 2.3-4.7 604) BILIRUBIN, [id number] 10:58:16 Test Item Value Reference Range Interpretation Comments BILIRUBIN DIRECT (BEAKER) (test 0.3 mg/dL 0.1-0.5 code = 706) COMPREHENSIVE METABOLIC [id number] 10:58:15 Test Item Value Reference Range Interpretation [...] patien ts CBC W/PLT COUNT & AUTO [id number] 10:45:52 Test Item Value Reference Range Interpretation [...] code = 2801) CT CHEST WITHOUT IV [id number] 16:10:45 [facility] : 1955 Sex: MEXAM: CTChest WITHOUT contrastINDICATION: [...] is a stable 8 mmgroundglass nodule in the apical right lower lobe (series 2, image 56).No other airspace opacities. Trachea and main bronchi are clear.PLEURA: The pleural spaces are clear.HEART AND MEDIASTINUM: The thyroid gland is normal. Nomediastinal,hilar or axillary lymphadenopathy. The heart is normal [...] exam.2. Interval liver transplant.3. Coronary artery and aorticvalvular calcification.Electronically Signed By: Urbano Blakely11/11/2022 16:12 CDTWorkstation Name: [id number] LAB [id number] 07:57:30 Test Item Value Reference Range Interpretation Comments SCAN RESULT (test code = see scanned report [id number]) SEE ATTACHMENTTACROLIMUS [id number] 13:42:34 Test Item Value Reference Range Interpretation Comments TACROLIMUS BLOOD 6.6 ng/mL 10.0-20.0 L Test perfor med on [place] (BEAKER) (test code Architec t Immunoassay = 657) system with Chemiluminescen t Microparticle I mmunoassay (CMIA) technolo gy. Route Sales Delivery Drivers Supervisor ID - ADMINBILIRUBIN, [id number] 10:53:32 Test Item Value Reference Range Interpretation Comments BILIRUBIN DIRECT (BEAKER) (test code < mg/dL 0.1-0.5 L = 706) Route Sales Delivery Drivers Supervisor ID - EDCOMPREHENSIVE METABOLIC [id number] 10:52:22 Test Item Value Reference Range Interpretation [...] not appl icable for dialysis patien ts Route Sales Delivery Drivers Supervisor ID - [id number] 10:52:22 Test Item Value Reference Range Interpretation Comments MAGNESIUM (BEAKER) (test code = 1.6 mg/dL 1.6-2.6 627) Route Sales Delivery Drivers Supervisor ID - [id number] 10:52:22 Test Item Value Reference Range Interpretation Comments PHOSPHORUS (BEAKER) (test code = 3.9 mg/dL 2.3-4.7 604) Route Sales Delivery Drivers Supervisor ID - EDCBC W/PLT COUNT & AUTO [id number] 10:26:18 Test Item Value Reference Range Interpretation [...] PERCENT (BEAKER) (test code = 2801) TACROLIMUS [id number] 12:00:23 Test Item Value Reference Range Interpretation Comments TACROLIMUS BLOOD 8.4 ng/mL 10.0-20.0 L Test perfor med on [place] (BEAKER) (test code Architec t Immunoassay = 657) system with Chemiluminescen t Microparticle I mmunoassay (CMIA) technolo gy. Route Sales Delivery Drivers Supervisor ID - [id number] 10:31:29 Test Item Value Reference Range Interpretation Comments PHOSPHORUS (BEAKER) (test code = 3.2 mg/dL 2.3-4.7 604) Route Sales Delivery Drivers Supervisor ID - edBILIRUBIN, [id number] 10:31:29 Test Item Value Reference Range Interpretation Comments BILIRUBIN DIRECT (BEAKER) (test 0.4 mg/dL 0.1-0.5 code = 706) Route Sales Delivery Drivers Supervisor ID - edCOMPREHENSIVE METABOLIC [id number] 10:31:28 Test Item Value Reference Range Interpretation [...] not appl icable for dialysis patien ts Route Sales Delivery Drivers Supervisor ID - [id number] 10:31:28 Test Item Value Reference Range Interpretation Comments MAGNESIUM (BEAKER) (test code = 1.7 mg/dL 1.6-2.6 627) Route Sales Delivery Drivers Supervisor ID - edCBC W/PLT COUNT & AUTO [id number] 10:20:02 Test Item Value Reference Range Interpretation [...] PERCENT (BEAKER) (test code = 2801) TACROLIMUS [id number] 11:47:55 Test Item Value Reference Range Interpretation Comments TACROLIMUS BLOOD 6.3 ng/mL 10.0-20.0 L Test perfor med on [employer] (BEAKER) (test code Architec t Immunoassay = 657) system with Chemiluminescen t Microparticle I mmunoassay (CMIA) technolo gy. Route Sales Delivery Drivers Supervisor ID - ADMINCOMPREHENSIVE METABOLIC [id number] 10:46:25 Test Item Value Reference Range Interpretation [...] not appl icable for dialysis patien ts Route Sales Delivery Drivers Supervisor ID - [id number] 10:46:25 Test Item Value Reference Range Interpretation Comments MAGNESIUM (BEAKER) (test code = 1.5 mg/dL 1.6-2.6 L 627) Route Sales Delivery Drivers Supervisor ID - [id number] 10:46:25 Test Item Value Reference Range Interpretation Comments PHOSPHORUS (BEAKER) (test code = 3.8 mg/dL 2.3-4.7 604) Route Sales Delivery Drivers Supervisor ID - MARCOBILIRUBIN, [id number] 10:46:25 Test Item Value Reference Range Interpretation Comments BILIRUBIN DIRECT (BEAKER) (test 0.5 mg/dL 0.1-0.5 code = 706) Route Sales Delivery Drivers Supervisor ID - MARCOCBC W/PLT COUNT & AUTO [id number] 10:36:44 Test Item Value Reference Range Interpretation [...] PERCENT (BEAKER) (test code = 2801) TACROLIMUS [id number] 15:02:30 Test Item Value Reference Range Interpretation Comments TACROLIMUS BLOOD 10.0 ng/mL 10.0-20.0 Test perfor med on [employer] (BEAKER) (test code Architec t Immunoassay = 657) system with Chemiluminescen t Microparticle Immunoassay (CM IA) technology. Route Sales Delivery Drivers Supervisor ID - ADMINCOMPREHENSIVE METABOLIC [id number] 11:24:24 Test Item Value Reference Range Interpretation [...] not appl icable for dialysis patien ts Route Sales Delivery Drivers Supervisor ID - [id number] 11:24:24 Test Item Value Reference Range Interpretation Comments MAGNESIUM (BEAKER) (test code = 1.5 mg/dL 1.6-2.6 L 627) Route Sales Delivery Drivers Supervisor ID - [id number] 11:24:24 Test Item Value Reference Range Interpretation Comments PHOSPHORUS (BEAKER) (test code = 3.4 mg/dL 2.3-4.7 604) Route Sales Delivery Drivers Supervisor ID - MMBILIRUBIN, [id number] 11:24:24 Test Item Value Reference Range Interpretation Comments BILIRUBIN DIRECT (BEAKER) (test 0.5 mg/dL 0.1-0.5 code = 706) Route Sales Delivery Drivers Supervisor ID - MMCBC W/PLT COUNT & AUTO [id number] 11:06:39 Test Item Value Reference Range Interpretation [...] % 0.00-1.00 PERCENT (BEAKER) (test code = 2800) TACROLIMUS [id number] 14:21:22 Test Item Value Reference Range Interpretation Comments TACROLIMUS BLOOD 9.2 ng/mL 10.0-20.0 L Test perfor med on [employer] (BEAKER) (test code Architec t Immunoassay = 657) system with Chemiluminescen t Microparticle I mmunoassay (CMIA) technolo gy. Route Sales Delivery Drivers Supervisor ID - ADMINBILIRUBIN, [id number] 11:52:50 Test Item Value Reference Range Interpretation Comments BILIRUBIN DIRECT (BEAKER) (test 0.6 mg/dL 0.1-0.5 H code = 706) Route Sales Delivery Drivers Supervisor ID - ADMINCOMPREHENSIVE METABOLIC [id number] 11:52:49 Test Item Value Reference Range Interpretation [...] not appl icable for dialysis patien ts Route Sales Delivery Drivers Supervisor ID - [id number] 11:52:49 Test Item Value Reference Range Interpretation Comments MAGNESIUM (BEAKER) (test code = 1.4 mg/dL 1.6-2.6 L 627) Route Sales Delivery Drivers Supervisor ID - [id number] 11:52:49 Test Item Value Reference Range Interpretation Comments PHOSPHORUS (BEAKER) (test code = 3.8 mg/dL 2.3-4.7 604) Route Sales Delivery Drivers Supervisor ID - ADMINCBC W/PLT COUNT & AUTO [id number] 11:47:34 Test Item Value Reference Range Interpretation [...] bacilli (test code = 994) seen TACROLIMUS [id number] 13:12:46 Test Item Value Reference Range Interpretation Comments TACROLIMUS BLOOD 15.9 ng/mL 10.0-20.0 Test perfor med on [place] (BEAKER) (test code Architec t Immunoassay = 657) system with Chemiluminescen t Microparticle Immunoassay (CM IA) technology. Route Sales Delivery Drivers Supervisor ID - ADMINBILIRUBIN, [id number] 12:42:39 Test Item Value Reference Range Interpretation Comments BILIRUBIN DIRECT (BEAKER) (test 0.7 mg/dL 0.1-0.5 H code = 706) Route Sales Delivery Drivers Supervisor ID - MMCOMPREHENSIVE METABOLIC [id number] 12:42:38 Test Item Value Reference Range Interpretation [...] not appl icable for dialysis patien ts Route Sales Delivery Drivers Supervisor ID - [id number] 12:42:38 Test Item Value Reference Range Interpretation Comments MAGNESIUM (BEAKER) (test code = 1.3 mg/dL 1.6-2.6 L 627) Route Sales Delivery Drivers Supervisor ID - [id number] 12:42:38 Test Item Value Reference Range Interpretation Comments PHOSPHORUS (BEAKER) (test code = 3.5 mg/dL 2.3-4.7 604) Route Sales Delivery Drivers Supervisor ID - MMCBC W/PLT COUNT & AUTO [id number] 12:24:01 Test Item Value Reference Range Interpretation [...] PERCENT (BEAKER) (test code = 2801) BLOOD [id number] 00:01:56 Test Item Value Reference Range Interpretation Comments CULTURE (BEAKER) (test No growth in 5 days code = 1095) The specimen volume collected for this blood culture was below the optimum (10 mL per bottle or 20 mL total). Use of lower volumes may adversely affect recovery and/or detection times of some organisms.BLOOD [id number] 00:01:56 Test Item Value Reference Range Interpretation Comments CULTURE (BEAKER) (test No growth in 5 days code = 1095) POCT-GLUCOSE [id number] 22:30:35 Test Item Value Reference Range Interpretation Comments POC-GLUCOSE METER 287 mg/dL 70-110 H : TESTED A T [facility] 67[address] (BEAKER) (test code = [place], 1538) [address]: Route Sales Delivery Drivers Supervisor/Techni zaire ID = [id number] for Lili Eaton TISSUE [id number] 13:48:07Surgical Pathology Report Case: [id number] Authorizing Provider: Shamar Michaels Jr., MD Collected: 09/23/2022 03:19 PM Ordering Location: [address] Received: 09/23/2022 04:21 PM Cardiovascular Pathologist: [...] tacrolimus levels. Signing Pathologist Direct Phone Line: [phone] signed by Denise Martin MD on 09/26/2022 [...] noted.Clinician notified Ten Aguilar was notified by [employer] message on 09/24/2022 at 1:04 [id number] liver on . LiverReceived in formalin labeled [...] evaluated Immunohistochemistry technical testing was performed at [facility], Pathology Laboratory where it was developed and [...] qualified to perform high complexity clinical laboratory testing.[facility], Department of Pathology, [address] [place] [id number], [facility], [address] [place] [address], AhddibUniversity [facility] California[facility], [facility] of Path[facility], [address] [place] [address], DCAB-GLUCOSE [id number] 11:29:05 Test Item Value Reference Range Interpretation Comments POC-GLUCOSE METER 219 mg/dL 70-110 H : TESTED A T [facility] [address] ([employer]) (test code = ABELMARYAN Arita [facility], 1538) 94[address]: Route Sales Delivery Drivers Supervisor/Techni zaire ID = [id number] for Lili Eaton TACROLIMUS [id number] 08:50:47 Test Item Value Reference Range Interpretation Comments TACROLIMUS BLOOD 11.3 ng/mL 10.0-20.0 Test perfor med on [place] ([employer]) (test code Architec t Immunoassay = 657) system with Chemiluminescen t Microparticle Immunoassay (CM IA) technology. Route Sales Delivery Drivers Supervisor ID - ADMINPOCT-GLUCOSE [id number] 07:52:34 Test Item Value Reference Range Interpretation Comments POC-GLUCOSE METER 114 mg/dL 70-110 H : [facility] (BEAKER) (test code = NICOLE Arita [place], 1538) [address]: Route Sales Delivery Drivers Supervisor/Techni zaire ID = [id number] for Lili Eaton GAMMA GLUTAMYL TRANSFERASE (GGT)2022-09-27 06:33:32 Test Item Value Reference Range Interpretation Comments GAMMA GLUTAMYL TRANSFERASE (BEAKER) 205 U/L 9-64 H (test code = 364) Route Sales Delivery Drivers Supervisor ID - LIZ WHEPATIC FUNCTION [id number] 06:33:31 Test Item Value Reference Range Interpretation [...] (test code = 34 U/L 6-55 347) Route Sales Delivery Drivers Supervisor ID Andrea HILL [id number] 06:33:30 Test Item Value Reference Range Interpretation Comments MAGNESIUM (BEAKER) (test code = 1.3 mg/dL 1.6-2.6 L 627) Route Sales Delivery Drivers Supervisor ID - LIZ [id number] 06:33:30 Test Item Value Reference Range Interpretation Comments PHOSPHORUS (BEAKER) (test code = 4.0 mg/dL 2.3-4.7 604) Route Sales Delivery Drivers Supervisor ID - LIZ WBASIC METABOLIC [id number] 06:33:29 Test Item Value Reference Range Interpretation [...] not appl icable for dialysis patien ts Route Sales Delivery Drivers Supervisor ID - LIZ WPROTHROMBIN [id number] 05:32:11 Test Item Value Reference Range Interpretation Comments PROTIME (BEAKER) (test code = 14.2 seconds 11.9-14.2 759) INR (BEAKER) (test code = 370) 1.17 <=5.90 RECOMMENDED COUMADIN/WARFARIN INR THERAPY RANGESSTANDARD DOSE: 2.0 - 3.0 Includes: PROPHYLAXIS for venous thrombosis, systemic embolization; TREATMENT for venous thrombosis and/or pulmonary embolus.HIGH RISK: Target INR is 2.5-3.5 for patients with mechanical heart valves.CBC W/PLT COUNT & AUTO [id number] 05:20:20 Test Item Value Reference Range Interpretation [...] IMMATURE GRANULOCYTES-RELATIVE 1.30 % 0.00-1.00 H PERCENT (BEAKER) (test code = 2801) POCT-GLUCOSE [id number] 21:17:51 Test Item Value Reference Range Interpretation Comments POC-GLUCOSE METER 149 mg/dL 70-110 H : TESTED Lana Davis [facility] 67[address] (BEAKER) (test code = [place], 1538) [address]: Route Sales Delivery Drivers Supervisor/Techni zaire ID = [id number] for MARGOT SHIPLEY POCT-GLUCOSE [id number] 16:16:07 Test Item Value Reference Range Interpretation Comments POC-GLUCOSE METER 238 mg/dL 70-110 H : TESTED A T [facility] [address] ([employer]) (test code = NICOLE Arita [facility], 1538) [address]: Route Sales Delivery Drivers Supervisor/Techni zaire ID = [id number] for Lili Eaton POCT-GLUCOSE [id number] 11:48:36 Test Item Value Reference Range Interpretation Comments POC-GLUCOSE METER 135 mg/dL 70-110 H : TESTED A T [facility] 6720 ([employer]) (test code = [facility], 1538) 98747: Route Sales Delivery Drivers Supervisor/Techni zaire ID = [id number] for Lili Eaton TACROLIMUS [id number] 10:29:25 Test Item Value Reference Range Interpretation Comments TACROLIMUS BLOOD 15.4 ng/mL 10.0-20.0 Test perfor med on [place] ([facility]) (test code Architec t Immunoassay = 657) system with Chemiluminescen t Microparticle Immunoassay (CM IA) technology. 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 Signed: Mauricio Cullen Verified Date/Time: 09/26/2022 09:27:49 POCT-GLUCOSE METER 2022-09-26 08:04:53 Test Item Value Reference Range Interpretation Comments POC-GLUCOSE METER 110 mg/dL 70-110 : TESTED A T [facility] 6720 ([facility]) (test code = [place], 1538) [address]: Route Sales Delivery Drivers Supervisor/Techni zaire ID = [id number] for Lili Eaton PROTHROMBIN TIME/[id number] 06:25:10 Test Item Value Reference Range Interpretation Comments PROTIME (BEAKER) (test code = 13.7 seconds 11.9-14.2 759) INR (BEAKER) (test code = 370) 1.07 <=5.90 RECOMMENDED COUMADIN/WARFARIN INR THERAPY RANGESSTANDARD DOSE: 2.0 - 3.0 Includes: PROPHYLAXIS for venous thrombosis, systemic embolization; TREATMENT for venous thrombosis and/or pulmonary embolus.HIGH RISK: Target INR is 2.5-3.5 for patients with mechanical heart valves.BASIC METABOLIC [id number] 06:24:51 Test Item Value Reference Range Interpretation [...] not appl icable for dialysis patien ts Route Sales Delivery Drivers Supervisor ID - EDGAMMA GLUTAMYL TRANSFERASE (GGT)2022-09-26 06:24:34 Test Item Value Reference Range Interpretation Comments GAMMA GLUTAMYL 217 U/L 9-64 H Specimen slig htly TRANSFERASE (BEAKER) hemolyz ed (test code = 364) Route Sales Delivery Drivers Supervisor ID - EDHEPATIC FUNCTION [id number] 06:24:33 Test Item Value Reference Range Interpretation [...] Specimen slightly (test code = 347) hemolyzed Route Sales Delivery Drivers Supervisor ID - [id number] 06:24:32 Test Item Value Reference Range Interpretation Comments MAGNESIUM (BEAKER) 1.4 mg/dL 1.6-2.6 L Specimen slightly (test code = 627) hemolyzed Route Sales Delivery Drivers Supervisor ID - [id number] 06:24:32 Test Item Value Reference Range Interpretation Comments PHOSPHORUS (BEAKER) 3.0 mg/dL 2.3-4.7 Specimen slightly (test code = 604) hemolyzed Route Sales Delivery Drivers Supervisor ID - EDCBC W/PLT COUNT & AUTO [id number] 06:03:54 Test Item Value Reference Range Interpretation [...] PERCENT (BEAKER) (test code = 2801) POCT-GLUCOSE [id number] 21:25:49 Test Item Value Reference Range Interpretation Comments POC-GLUCOSE METER 103 mg/dL 70-110 : TESTED A T [facility] 6720 (BEAKER) (test code [facility], = 1538) 21299: Route Sales Delivery Drivers Supervisor/Techni zaire ID = [id number] for BANA GARADHATIANA POCT-GLUCOSE [id number] 16:39:44 Test Item Value Reference Range Interpretation Comments POC-GLUCOSE METER 299 mg/dL 70-110 H : TESTED A T [facility] 6720 (BEAKER) (test code = [facility], 1538) 0[address]: Route Sales Delivery Drivers Supervisor/Techni zaire ID = [id number] for CORY NAPOLES POCT-GLUCOSE [id number] 15:23:55 Test Item Value Reference Range Interpretation Comments POC-GLUCOSE METER 364 mg/dL 70-110 H : TESTED A T [facility] 6720 (BEAKER) (test code = [facility], 1538) 54626: Route Sales Delivery Drivers Supervisor/Techni zaire ID = [id number] for Belén Galvez GAMMA GLUTAMYL TRANSFERASE (GGT)2022-09-25 13:05:26 Test Item Value Reference Range Interpretation Comments GAMMA GLUTAMYL TRANSFERASE (BEAKER) 244 U/L 9-64 H (test code = 364) Route Sales Delivery Drivers Supervisor ID - EDPOCT-GLUCOSE [id number] 11:53:50 Test Item Value Reference Range Interpretation Comments POC-GLUCOSE METER 227 mg/dL 70-110 H : TESTED A T [facility] 67[address] (BEAKER) (test code = [facility], 1538) 27415: Route Sales Delivery Drivers Supervisor/Techni zaire ID = [id number] for CORY NAPOLES TACROLIMUS [id number] 09:18:47 Test Item Value Reference Range Interpretation Comments TACROLIMUS BLOOD 14.3 ng/mL 10.0-20.0 Test perfor med on [employer] (BEAKER) (test code Architec t Immunoassay = 657) system with Chemiluminescen t Microparticle Immunoassay (CM IA) technology. Route Sales Delivery Drivers Supervisor ID - ADMINPOCT-GLUCOSE [id number] 07:37:10 Test Item Value Reference Range Interpretation Comments POC-GLUCOSE METER 106 mg/dL 70-110 : TESTED A T [facility] 6720 (BEAKER) (test code = [facility], 1538) 69954: Route Sales Delivery Drivers Supervisor/Techni zaire ID = [id number] for CORY NAPOLES HEPATIC FUNCTION [id number] 05:13:08 Test Item Value Reference Range Interpretation [...] (test code = 34 U/L 6-55 347) Route Sales Delivery Drivers Supervisor ID - [id number] 05:13:07 Test Item Value Reference Range Interpretation Comments MAGNESIUM (BEAKER) (test code = 1.2 mg/dL 1.6-2.6 L 627) Route Sales Delivery Drivers Supervisor ID - [id number] 05:13:07 Test Item Value Reference Range Interpretation Comments PHOSPHORUS (BEAKER) (test code = 2.8 mg/dL 2.3-4.7 604) Route Sales Delivery Drivers Supervisor ID - EDBASIC METABOLIC [id number] 05:13:06 Test Item Value Reference Range Interpretation [...] not appl icable for dialysis patien ts Route Sales Delivery Drivers Supervisor ID - EDPROTHROMBIN TIME/[id number] 04:45:06 Test Item Value Reference Range Interpretation [...] mechanical heart valves.CBC W/PLT COUNT & AUTO [id number] 04:41:31 Test Item Value Reference Range Interpretation [...] NEUTROPHILS ABSOLUTE COUNT 4.06 K/ L 1.78-5.38 (AKER) (test code = 670) LYMPHOCYTES ABSOLUTE COUNT 1.92 K/ L 1.32-3.57 (BEAKER) (test code = 414) MONOCYTES ABSOLUTE COUNT (BEAKER) 0.72 K/ L 0.30-0.82 (test code = 415) EOSINOPHILS ABSOLUTE COUNT 0.28 K/ L 0.04-0.54 (BEAKER) (test code = 416) BASOPHILS ABSOLUTE COUNT (BEAKER) 0.05 K/ L 0.01-0.08 (test code = 417) IMMATURE GRANULOCYTES-RELATIVE 1.10 % 0.00-1.00 H PERCENT ([facility]) (test code = 2801) VANCOMYCIN LEVEL, [id number] 01:16:18 Test Item Value Reference Range Interpretation Comments VANCOMYCIN TROUGH ([facility]) (test 17.9 ug/mL 10.0-20.0 code = 522) Route Sales Delivery Drivers Supervisor ID - EDPOCT-GLUCOSE [id number] 22:07:15 Test Item Value Reference Range Interpretation Comments POC-GLUCOSE METER 110 mg/dL 70-110 : TESTED A T [facility] 6720 ([facility]) (test code = [facility], 153) 54376: Route Sales Delivery Drivers Supervisor/Techni zaire ID = [id number] for PROSPER HARVEY POCT-GLUCOSE [id number] 19:15:48 Test Item Value Reference Range Interpretation Comments POC-GLUCOSE METER 199 mg/dL 70-110 H : TESTED A T [facility] 6720 ([facility]) (test code = [facility] [place] [facility], 1538) 63270: Route Sales Delivery Drivers Supervisor/Techni zaire ID = [id number] for URBANO FIGUEROA POCT-GLUCOSE [id number] 11:33:04 Test Item Value Reference Range Interpretation Comments POC-GLUCOSE METER 265 mg/dL 70-110 H : TESTED A T [facility] 67[address] ([facility]) (test code = [facility], 153) 20390: Route Sales Delivery Drivers Supervisor/Techni zaire ID = [id number] for CORY NAPOLES TACROLIMUS [id number] 09:22:57 Test Item Value Reference Range Interpretation Comments TACROLIMUS BLOOD 12.4 ng/mL 10.0-20.0 Test perfor med on [employer] ([facility]) (test code Architec t Immunoassay = 657) system with Chemiluminescen t Microparticle Immunoassay (CM IA) technology. Route Sales Delivery Drivers Supervisor ID - ADMINPOCT-GLUCOSE [id number] 07:30:21 Test Item Value Reference Range Interpretation Comments POC-GLUCOSE METER 110 mg/dL 70-110 : [facility] (BEAKER) (test code = [place], 1538) 53352: Route Sales Delivery Drivers Supervisor/Techni zaire ID = [id number] for LAUREN NAPOLESLENE BASIC METABOLIC [id number] 05:58:20 Test Item Value Reference Range Interpretation [...] not appl icable for dialysis patien ts Route Sales Delivery Drivers Supervisor ID - ADMINHEPATIC FUNCTION [id number] 05:57:05 Test Item Value Reference Range Interpretation [...] (test code = 28 U/L 6-55 347) Route Sales Delivery Drivers Supervisor ID - [id number] 05:57:04 Test Item Value Reference Range Interpretation Comments PHOSPHORUS (BEAKER) (test code = 3.0 mg/dL 2.3-4.7 604) Route Sales Delivery Drivers Supervisor ID - [id number] 05:57:03 Test Item Value Reference Range Interpretation Comments MAGNESIUM (BEAKER) (test code = 1.4 mg/dL 1.6-2.6 L 627) Route Sales Delivery Drivers Supervisor ID - ADMINPROTHROMBIN TIME/[id number] 05:31:16 Test Item Value Reference Range Interpretation Comments PROTIME (BEAKER) (test code = 13.4 seconds 11.9-14.2 759) INR (BEAKER) (test code = 370) 1.04 <=5.90 RECOMMENDED COUMADIN/WARFARIN INR THERAPY RANGESSTANDARD DOSE: 2.0 - 3.0 Includes: PROPHYLAXIS for venous thrombosis, systemic embolization; TREATMENT for venous thrombosis and/or pulmonary embolus.HIGH RISK: Target INR is 2.5-3.5 for patients with mechanical heart valves.CBC W/PLT COUNT & AUTO [id number] 05:22:17 Test Item Value Reference Range Interpretation [...] PERCENT (BEAKER) (test code = 2801) POCT-GLUCOSE [id number] 04:54:35 Test Item Value Reference Range Interpretation Comments POC-GLUCOSE METER 122 mg/dL 70-110 H : TESTED A T [facility] 6720 (BEAKER) (test code = [place], 1538) 97854: Route Sales Delivery Drivers Supervisor/Techni zaire ID = [id number] for VINICIUS PAREDES POCT-GLUCOSE [id number] 22:10:09 Test Item Value Reference Range Interpretation Comments POC-GLUCOSE METER 219 mg/dL 70-110 H : TESTED A T [facility] 6720 ([employer]) (test code = [facility] Arita [facility], 1538) 62012: Route Sales Delivery Drivers Supervisor/Techni zaire ID = [id number] for VINICIUS PAREDES BLOOD [id number] 21:00:36 Test Item Value Reference Range Interpretation Comments CULTURE (BEAKER) (test No growth in 5 days code = 1095) The specimen volume collected for this blood culture was below the optimum (10 mL per bottle or 20 mL total). Use of lower volumes may adversely affect recovery and/or detection times of some organisms.BLOOD [id number] 21:00:35 Test Item Value Reference Range Interpretation Comments CULTURE (BEAKER) (test No growth in 5 days code = 1095) The specimen volume collected for this blood culture was below the optimum (10 mL per bottle or 20 mL total). Use of lower volumes may adversely affect recovery and/or detection times of some organisms.POCT-GLUCOSE [id number] 16:33:21 Test Item Value Reference Range Interpretation Comments POC-GLUCOSE METER 173 mg/dL 70-110 H : TESTED A T [facility] [address] ([employer]) (test code = [facility], 1538) 60050: Route Sales Delivery Drivers Supervisor/Techni zaire ID = [id number] for Luna Grover HIV-1 PCR, [id number] 13:48:28 Test Item Value Reference Range Interpretation Comments HIV-1 RESULT HIV RNA not detected HIV RNA not detected COMPONENT ([employer]) (test code = 2703) TACROLIMUS [id number] 10:03:46 Test Item Value Reference Range Interpretation Comments TACROLIMUS BLOOD 14.8 ng/mL 10.0-20.0 Test perfor med on [place] ([employer]) (test code Architec t Immunoassay = 657) system with Chemiluminescen t Microparticle Immunoassay (CM IA) technology. Route Sales Delivery Drivers Supervisor ID - ADMINPOCT-GLUCOSE [id number] 09:56:37 Test Item Value Reference Range Interpretation Comments POC-GLUCOSE METER 143 mg/dL 70-110 H : TESTED A T [facility] [address]20 ([employer]) (test code = [facility], 1538) 21337: Route Sales Delivery Drivers Supervisor/Techni zaire ID = [id number] for Luna Grover GAMMA GLUTAMYL TRANSFERASE (GGT)2022-09-23 09:00:35 Test Item Value Reference Range Interpretation Comments GAMMA GLUTAMYL TRANSFERASE (BEAKER) 210 U/L 9-64 H (test code = 364) Route Sales Delivery Drivers Supervisor ID - MARCOPOCT-GLUCOSE [id number] 08:50:50 Test Item Value Reference Range Interpretation Comments POC-GLUCOSE METER 178 mg/dL 70-110 H : TESTED A T [facility] 6720 (BEAKER) (test code = [facility], 1538) 97828: Route Sales Delivery Drivers Supervisor/Techni zaire ID = [id number] for Luna Grover POCT-GLUCOSE [id number] 06:50:35 Test Item Value Reference Range Interpretation Comments POC-GLUCOSE METER 154 mg/dL 70-110 H : TESTED A T [facility] 6720 (BEAKER) (test code = [facility], 1538) 77878: Route Sales Delivery Drivers Supervisor/Techni zaire ID = [id number] for Marta Hernandez HEPATIC FUNCTION [id number] 06:39:56 Test Item Value Reference Range Interpretation [...] (test code = 31 U/L 6-55 347) Route Sales Delivery Drivers Supervisor ID - [id number] 06:39:55 Test Item Value Reference Range Interpretation Comments MAGNESIUM (BEAKER) (test code = 1.6 mg/dL 1.6-2.6 627) Route Sales Delivery Drivers Supervisor ID - [id number] 06:39:55 Test Item Value Reference Range Interpretation Comments PHOSPHORUS (BEAKER) (test code = 2.6 mg/dL 2.3-4.7 604) Route Sales Delivery Drivers Supervisor ID - MARCOBASIC METABOLIC [id number] 06:39:54 Test Item Value Reference Range Interpretation [...] not appl icable for dialysis patien ts Route Sales Delivery Drivers Supervisor ID - MARCOCBC W/PLT COUNT & AUTO [id number] 06:08:13 Test Item Value Reference Range Interpretation [...] PERCENT (BEAKER) (test code = 2801) POCT-GLUCOSE [id number] 04:57:05 Test Item Value Reference Range Interpretation Comments POC-GLUCOSE METER 201 mg/dL 70-110 H : TESTED A T [facility] 6720 (BEAKER) (test code = [place], 1538) [address]: Route Sales Delivery Drivers Supervisor/Techni zaire ID = [id number] for HAYDEN SERVIN POCT-GLUCOSE [id number] 03:48:29 Test Item Value Reference Range Interpretation Comments POC-GLUCOSE METER 189 mg/dL 70-110 H : TESTED A T [facility] 6720 (BEAKER) (test code = [facility], 1538) [address]60: Route Sales Delivery Drivers Supervisor/Techni zaire ID = [id number] for HAYDEN SERVIN POCT-GLUCOSE [id number] 02:46:42 Test Item Value Reference Range Interpretation Comments POC-GLUCOSE METER 222 mg/dL 70-110 H : TESTED A T [facility] 6720 (BEAKER) (test code = [facility], 1538) 00430: Route Sales Delivery Drivers Supervisor/Techni zaire ID = [id number] for Marta Hernandez POCT-GLUCOSE [id number] 00:49:32 Test Item Value Reference Range Interpretation Comments POC-GLUCOSE METER 290 mg/dL 70-110 H : TESTED A T [facility] 6720 (BEAKER) (test code = [facility], 1538) 28719: Route Sales Delivery Drivers Supervisor/Techni zaire ID = [id number] for Marta Hernandez URINALYSIS W/ REFLEX URINE [id number] 23:45:13 Test Item Value Reference Range Interpretation [...] = 516) SOURCE(BEAKER) (test code = 2795) Route Sales Delivery Drivers Supervisor ID - [auto]Route Sales Delivery Drivers Supervisor ID - [id number] 22:55:32 Test Item Value Reference Range Interpretation Comments GLUCOSE RANDOM (BEAKER) (test code 462 mg/dL 70-105 HH = 652) Route Sales Delivery Drivers Supervisor ID - [id number] 22:51:28 Test Item Value Reference Range Interpretation Comments POTASSIUM (BEAKER) (test code = 4.7 meq/L 3.5-5.1 379) Route Sales Delivery Drivers Supervisor ID - ADMINPOCT-GLUCOSE [id number] 19:34:47 Test Item Value Reference Range Interpretation Comments POC-GLUCOSE METER 417 mg/dL 70-110 HH : Notified RN/MD: ([facility]) (test code = TESTED AT [place] [id number] 1538) [facility], [address]: Route Sales Delivery Drivers Supervisor/Techni zaire ID = [id number] for HAYDEN SERVIN POCT-GLUCOSE [id number] 17:56:00 Test Item Value Reference Range Interpretation Comments POC-GLUCOSE METER 460 mg/dL 70-110 HH : Notified RN/MD: TESTED ([facility]) (test code AT [address] = 1538) [facility], 770 30: Route Sales Delivery Drivers Supervisor/Techni zaire ID = [id number] for Jennifer Diego, Gene sis POCT-GLUCOSE [id number] 16:47:05 Test Item Value Reference Range Interpretation Comments POC-GLUCOSE METER 412 mg/dL 70-110 HH : [facility] ([facility]) (test code = [facility], 1538) [address]: Route Sales Delivery Drivers Supervisor/Techni zaire ID = [id number] for Chuck leathaPadmini patel POCT-GLUCOSE [id number] 16:24:54 Test Item Value Reference Range Interpretation Comments POC-GLUCOSE METER 403 mg/dL 70-110 HH : [facility] ([facility]) (test code [facility], = 1538) [address]: Route Sales Delivery Drivers Supervisor/Techni zaire ID = [id number] for Jennifer Diego, Gene sis POCT-GLUCOSE [id number] 11:19:43 Test Item Value Reference Range Interpretation Comments POC-GLUCOSE METER 271 mg/dL 70-110 H : TESTED A T [facility] 6720 (BEAKER) (test code [facility], = 1538) [address]: Route Sales Delivery Drivers Supervisor/Techni zaire ID = [id number] for Jennifer Diego, Gene sis VANCOMYCIN LEVEL, [id number] 11:06:42 Test Item Value Reference Range Interpretation Comments VANCOMYCIN TROUGH (BEAKER) (test 14.5 ug/mL 10.0-20.0 code = 522) Route Sales Delivery Drivers Supervisor ID - MARCOCBC W/PLT COUNT & AUTO [id number] 11:05:40 Test Item Value Reference Range Interpretation [...] PERCENT (BEAKER) (test code = 2801) TACROLIMUS [id number] 09:16:31 Test Item Value Reference Range Interpretation Comments TACROLIMUS BLOOD 11.2 ng/mL 10.0-20.0 Test perfor med on [place] (BEAKER) (test code Architec t Immunoassay = 657) system with Chemiluminescen t Microparticle Immunoassay (CM IA) technology. Route Sales Delivery Drivers Supervisor ID - ADMINPOCT-GLUCOSE [id number] 07:38:14 Test Item Value Reference Range Interpretation Comments POC-GLUCOSE METER 106 mg/dL 70-110 : TESTED A T [facility] 6720 (BEAKER) (test code = [place], 1538) [address]: Route Sales Delivery Drivers Supervisor/Techni zaire ID = [id number] for Chuck Padmini han HEPATIC FUNCTION [id number] 07:12:14 Test Item Value Reference Range Interpretation [...] Specimen slightly (test code = 347) hemolyzed Route Sales Delivery Drivers Supervisor ID - [id number] 07:12:13 Test Item Value Reference Range Interpretation Comments PHOSPHORUS (BEAKER) 3.2 mg/dL 2.3-4.7 Specimen slightly (test code = 604) hemolyzed Route Sales Delivery Drivers Supervisor ID - MARCOBASIC METABOLIC [id number] 07:12:13 Test Item Value Reference Range Interpretation [...] not appl icable for dialysis patien ts Route Sales Delivery Drivers Supervisor ID - [id number] 07:12:12 Test Item Value Reference Range Interpretation Comments MAGNESIUM (BEAKER) 1.3 mg/dL 1.6-2.6 L Specimen slightly (test code = 627) hemolyzed Route Sales Delivery Drivers Supervisor ID - MARCOPROTHROMBIN TIME/[id number] 06:28:27 Test Item Value Reference Range Interpretation Comments PROTIME (BEAKER) (test code = 14.3 seconds 11.9-14.2 H 759) INR (BEAKER) (test code = 370) 1.18 <=5.90 RECOMMENDED COUMADIN/WARFARIN INR THERAPY RANGESSTANDARD DOSE: 2.0 - 3.0 Includes: PROPHYLAXIS for venous thrombosis, systemic embolization; TREATMENT for venous thrombosis and/or pulmonary embolus.HIGH RISK: Target INR is 2.5-3.5 for patients with mechanical heart valves.POCT-GLUCOSE [id number] 21:42:02 Test Item Value Reference Range Interpretation Comments POC-GLUCOSE METER 233 mg/dL 70-110 H : TESTED A T [facility] 6720 (BEAKER) (test code [facility], = 1538) [address]: Route Sales Delivery Drivers Supervisor/Techni zaire ID = [id number] for TIANA CHASE POCT-GLUCOSE [id number] 15:42:04 Test Item Value Reference Range Interpretation Comments POC-GLUCOSE METER 260 mg/dL 70-110 H : TESTED A T [facility] 6720 (BEAKER) (test code = NICOLE Juan J [facility], 1538) [address]: Route Sales Delivery Drivers Supervisor/Techni zaire ID = [id number] for Chuck emely Traciemarky SPUTUM CULTURE + GRAM [id number] 11:49:53 Test Item Value Reference Range Interpretation Comments CULTURE (BEAKER) 4+ Normal respiratory (test code = 1095) rosalie present GRAM STAIN RESULT <1+ WBCs (BEAKER) (test code = 1123) GRAM STAIN RESULT 5-10 epithelial cells (BEAKER) (test code = 83095) GRAM STAIN RESULT <1+ gram positive rods (BEAKER) (test code = 52357) GRAM STAIN RESULT 4+ gram positive cocci (BEAKER) (test code = in pairs 743928) GRAM STAIN RESULT <1+ gram positive cocci (BEAKER) (test code = in chains 653462) POCT-GLUCOSE [id number] 11:31:06 Test Item Value Reference Range Interpretation Comments POC-GLUCOSE METER 146 mg/dL 70-110 H : TESTED A T [facility] 6720 (BEAKER) (test code = [facility] [place], 1538) [address]: Route Sales Delivery Drivers Supervisor/Techni zaire ID = [id number] for Padmini Hussein TACROLIMUS [id number] 09:49:52 Test Item Value Reference Range Interpretation Comments TACROLIMUS BLOOD 8.3 ng/mL 10.0-20.0 L Test perfor med on Calhoun (BEAKER) (test code Architec t Immunoassay = 657) system with Chemiluminescen t Microparticle I mmunoassay (CMIA) technolo gy. Route Sales Delivery Drivers Supervisor ID - ADMINPOCT-GLUCOSE [id number] 07:27:57 Test Item Value Reference Range Interpretation Comments POC-GLUCOSE METER 75 mg/dL 70-110 : TESTED A T [facility] 6720 (BEAKER) (test code = [facility] [place], 1538) [address]: Route Sales Delivery Drivers Supervisor/Techni zaire ID = [id number] for Padmini Bhat HEPATIC FUNCTION [id number] 05:32:17 Test Item Value Reference Range Interpretation [...] Specimen slightly (test code = 347) hemolyzed Route Sales Delivery Drivers Supervisor ID - LIZ WGAMMA GLUTAMYL TRANSFERASE (GGT)2022-09-21 05:32:17 Test Item Value Reference Range Interpretation Comments GAMMA GLUTAMYL 203 U/L 9-64 H Specimen slig htly TRANSFERASE (BEAKER) hemolyz ed (test code = 364) Route Sales Delivery Drivers Supervisor ID - LIZ [id number] 05:32:16 Test Item Value Reference Range Interpretation Comments PHOSPHORUS (BEAKER) 3.6 mg/dL 2.3-4.7 Specimen slightly (test code = 604) hemolyzed Route Sales Delivery Drivers Supervisor ID - LIZ WBASIC METABOLIC [id number] 05:32:16 Test Item Value Reference Range Interpretation [...] not appl icable for dialysis patien ts Route Sales Delivery Drivers Supervisor ID - LIZ [id number] 05:32:15 Test Item Value Reference Range Interpretation Comments MAGNESIUM (BEAKER) 1.6 mg/dL 1.6-2.6 Specimen slightly (test code = 627) hemolyzed Route Sales Delivery Drivers Supervisor ID Andrea HILL WPROTHROMBIN TIME/[id number] 05:16:21 Test Item Value Reference Range Interpretation [...] mechanical heart valves.CBC W/PLT COUNT & AUTO [id number] 04:56:34 Test Item Value Reference Range Interpretation [...] (BEAKER) (test code = 2801) VANCOMYCIN LEVEL, [id number] 01:05:06 Test Item Value Reference Range Interpretation Comments VANCOMYCIN TROUGH (BEAKER) (test 9.3 ug/mL 10.0-20.0 L code = 522) Route Sales Delivery Drivers Supervisor ID - mmPOCT-GLUCOSE [id number] 21:34:28 Test Item Value Reference Range Interpretation Comments POC-GLUCOSE METER 121 mg/dL 70-110 H : TESTED A T [facility] 6720 (BEAKER) (test code = [facility], 1538) 62546: Route Sales Delivery Drivers Supervisor/Techni zaire ID = [id number] for PROSPER HARVEY POCT-GLUCOSE [id number] 16:27:48 Test Item Value Reference Range Interpretation Comments POC-GLUCOSE METER 207 mg/dL 70-110 H : [facility] 67[facility] (test code = [facility] [place] [facility], 1538) [address]: Route Sales Delivery Drivers Supervisor/Techni zaire ID = [id number] for Russell Adame EBV VIRAL [id number] 15:39:21 Test Item Value Reference Range Interpretation Comments EBV VIRAL LOAD - Negative or below See_Comment [Auto mated message] NEGATIVE (BEAKER) the linear range The sy stem which (test code = of the assay generated this 2559) (<500 IU /mL) result transmi tted reference range : <500 - >5,00 0,000 IU/mL. The refe rence range was not u sed to interpret th is result as normal/abnormal . URINE [id number] 13:04:01 Test Item Value Reference Range Interpretation Comments CULTURE (BEAKER) (test <10,000 col/mL skin code = 1095) rosalie If your patient does not have signs or symptoms of UTI, it is recommended NOT to treat, with the exception of and prior to urologic procedures.POCT- GLUCOSE [id number] 11:22:44 Test Item Value Reference Range Interpretation Comments POC-GLUCOSE METER 153 mg/dL 70-110 H : TESTED A T [facility] 6720 (BEAKER) (test code = NICOLE Arita [facility], 1538) [address]71: Route Sales Delivery Drivers Supervisor/Techni zaire ID = [id number] for Russell Adame TACROLIMUS [id number] 10:24:49 Test Item Value Reference Range Interpretation Comments TACROLIMUS BLOOD 4.6 ng/mL 10.0-20.0 L Test perfor med on [place] (BEAKER) (test code Architec t Immunoassay = 657) system with Chemiluminescen t Microparticle I mmunoassay (CMIA) omi khanna Route Sales Delivery Drivers Supervisor ID - ADMINPOCT-GLUCOSE [id number] 07:31:13 Test Item Value Reference Range Interpretation Comments POC-GLUCOSE METER 75 mg/dL 70-110 : TESTED A T [facility] 6720 (BEAKER) (test code = [facility], 1538) 49925: Route Sales Delivery Drivers Supervisor/Techni zaire ID = [id number] for Russell Summers BASIC METABOLIC [id number] 06:51:44 Test Item Value Reference Range Interpretation [...] not appl icable for dialysis patien ts Route Sales Delivery Drivers Supervisor ID - MARCOGAMMA GLUTAMYL TRANSFERASE (GGT)2022-09-20 06:16:32 Test Item Value Reference Range Interpretation Comments GAMMA GLUTAMYL TRANSFERASE (BEAKER) 170 U/L 9-64 H (test code = 364) Route Sales Delivery Drivers Supervisor ID - MARCOHEPATIC FUNCTION [id number] 06:16:31 Test Item Value Reference Range Interpretation [...] (test code = 36 U/L 6-55 347) Route Sales Delivery Drivers Supervisor ID - [id number] 06:16:30 Test Item Value Reference Range Interpretation Comments MAGNESIUM (BEAKER) (test code = 1.5 mg/dL 1.6-2.6 L 627) Route Sales Delivery Drivers Supervisor ID - [id number] 06:16:30 Test Item Value Reference Range Interpretation Comments PHOSPHORUS (BEAKER) (test code = 2.8 mg/dL 2.3-4.7 604) Route Sales Delivery Drivers Supervisor ID - MARCOPROTHROMBIN TIME/[id number] 05:42:39 Test Item Value Reference Range Interpretation Comments PROTIME (BEAKER) (test code = 15.0 seconds 11.9-14.2 H 759) INR (BEAKER) (test code = 370) 1.26 <=5.90 RECOMMENDED COUMADIN/WARFARIN INR THERAPY RANGESSTANDARD DOSE: 2.0 - 3.0 Includes: PROPHYLAXIS for venous thrombosis, systemic embolization; TREATMENT for venous thrombosis and/or pulmonary embolus.HIGH RISK: Target INR is 2.5-3.5 for patients with mechanical heart valves.VANCOMYCIN LEVEL, [id number] 05:41:00 Test Item Value Reference Range Interpretation Comments VANCOMYCIN TROUGH (BEAKER) (test 16.7 ug/mL 10.0-20.0 code = 522) Route Sales Delivery Drivers Supervisor ID - mmCBC W/PLT COUNT & AUTO [id number] 05:34:19 Test Item Value Reference Range Interpretation [...] PERCENT (BEAKER) (test code = 2801) POCT-GLUCOSE [id number] 22:10:12 Test Item Value Reference Range Interpretation Comments POC-GLUCOSE METER 121 mg/dL 70-110 H : TESTED A T [facility] 6720 (BEAKER) (test code = [facility], 1538) 85965: Route Sales Delivery Drivers Supervisor/Techni zaire ID = [id number] for HAYDEN SERVIN POCT-GLUCOSE [id number] 16:55:26 Test Item Value Reference Range Interpretation Comments POC-GLUCOSE METER 249 mg/dL 70-110 H : TESTED A T [facility] 6720 (BEAKER) (test code = [facility], 153) 89938: Route Sales Delivery Drivers Supervisor/Techni zaire ID = [id number] for Russell Adame CMV PCR, [id number] 14:08:08 Test Item Value Reference Range Interpretation Comments CMV VIRAL LOAD - Negative or below See_Comment [Auto mated message] NEGATIVE (BEAKER) the linear range The sy stem which (test code = of the assay generated this 2558) (<300 IU/mL) result transmit lisa reference range : <300 - >3,00 0,000 IU/mL. The refe rence range was not u sed to interpret th is result as normal/abnormal . POCT-GLUCOSE [id number] 12:54:03 Test Item Value Reference Range Interpretation Comments POC-GLUCOSE METER 133 mg/dL 70-110 H : TESTED A T [facility] 6720 (BEAKER) (test code = [place], 1538) [address]283: Route Sales Delivery Drivers Supervisor/Techni zaire ID = [id number] for SHARON MENDOZA SARS-COV2/RT-PCR ([facility])2022-09-19 12:44:56 Test Item Value Reference Range Interpretation Comments SARS-COV2/RT-PCR Negative Negative The SARS-Co V-2 target (test code = nucleic acids a re not 5560201) detected in thi s specimen. Negative result [...] revoked sooner. Fact Sheet for Healthcare Providers: https://www.[employer]co m/Documents/Xpert%20Xpress%20SARS%20CoV-2/Fact%20Sheets/093-2488%13EMOD-FKP-1%20 HEALTHCARE%20PROVIDERS%20FACT%20SHEET.pdf Fact Sheet for Healthcare Patients: https://www.[employer]/Documents/Xpert%20Xp ress%20SARS%20CoV-2/Fact%20Sheets/302-3801%88NOJF-WIO-5%20PATIENT%20FACT%20SHEET .pdfRAD, ABDOMEN/KUB, 1 VIEW [id number] 10:43:00REFERRING MD: CHERELLE SALVADRO Reason for exam:->evaluate for CBD stent migration [facility] : 1955 Sex: [...] excluded on the supine view. Signed: Marycruz Barillasort Verified Date/Time: 09/19/2022 10:43:40 Reading Location: [address] Reading Room POCT-GLUCOSE [id number] 10:02:43 Test Item Value Reference Range Interpretation Comments POC-GLUCOSE METER 98 mg/dL 70-110 : TESTED A T [facility] 6720 ([employer]) (test code = [place], 1538) [address]: Route Sales Delivery Drivers Supervisor/Techni zaire ID = [id number] for Tobi ins, Unique TACROLIMUS [id number] 09:50:56 Test Item Value Reference Range Interpretation Comments TACROLIMUS BLOOD 4.0 ng/mL 10.0-20.0 L Test perfor med on [place] ([employer]) (test code Architec t Immunoassay = 657) system with Chemiluminescen t Microparticle I mmunoassay (CMIA) technkelby gy. Route Sales Delivery Drivers Supervisor ID - ADMINHEPATIC FUNCTION [id number] 06:35:00 Test Item Value Reference Range Interpretation [...] Specimen slightly (test code = 347) hemolyzed Route Sales Delivery Drivers Supervisor ID - MARIOGAMMA GLUTAMYL TRANSFERASE (GGT)2022-09-19 06:35:00 Test Item Value Reference Range Interpretation Comments GAMMA GLUTAMYL 182 U/L 9-64 H Specimen slig htly TRANSFERASE (BEAKER) hemolyz ed (test code = 364) Route Sales Delivery Drivers Supervisor ID - MARIOBASIC METABOLIC [id number] 06:34:59 Test Item Value Reference Range Interpretation [...] not appl icable for dialysis patien ts Route Sales Delivery Drivers Supervisor ID - [id number] 06:34:58 Test Item Value Reference Range Interpretation Comments MAGNESIUM (BEAKER) 1.6 mg/dL 1.6-2.6 Specimen slightly (test code = 627) hemolyzed Route Sales Delivery Drivers Supervisor ID - [id number] 06:34:58 Test Item Value Reference Range Interpretation Comments PHOSPHORUS (BEAKER) 4.4 mg/dL 2.3-4.7 Specimen slightly (test code = 604) hemolyzed Route Sales Delivery Drivers Supervisor ID - MARIOPROTHROMBIN TIME/[id number] 06:07:57 Test Item Value Reference Range Interpretation [...] mechanical heart valves.CBC W/PLT COUNT & AUTO [id number] 05:59:10 Test Item Value Reference Range Interpretation [...] (test code = 2801) U/S, ABDOMINAL, WITH [id number] 00:20:00REFERRING : CHERELLE SALVADOR Reason for exam:->s/p OLT assess vessels and liverShould this be performed at the bedside?->Yes [facility] : 1955 Sex: [...] in the gallbladder fossa. Splenomegaly. Signed: Radha Royaleport Verified Date/Time: 09/19/2022 00:20:19 URINALYSIS W/ REFLEX URINE [id number] 22:25:49 Test Item Value Reference Range Interpretation [...] = 516) SOURCE(BEAKER) (test code = 2795) Route Sales Delivery Drivers Supervisor ID - [auto]Route Sales Delivery Drivers Supervisor ID - techSARS-COV2/RT-PCR ([facility]) 2022-09-18 21:37:37 Test Item Value Reference Range Interpretation Comments SARS-COV2/RT-PCR Negative Negative The SARS-Co V-2 target (test code = nucleic acids a re not 7694670) detected in thi s specimen. Negative result [...] revoked sooner. Fact Sheet for Healthcare Providers: https://www.[employer] m/Documents/Xpert%20Xpress%20SARS%20CoV-2/Fact%20Sheets/3023802%44TIAI-FKV-0%20 HEALTHCARE%20PROVIDERS%20FACT%20SHEET.pdf Fact Sheet for Healthcare Patients: https://www.[employer]/Documents/Xpert%20Xp ress%20SARS%20CoV-2/Fact%20Sheets/3023801%82GOXE-RFX-5%20PATIENT%20FACT%20SHEET .pdfPOCT-GLUCOSE [id number] 21:14:09 Test Item Value Reference Range Interpretation Comments POC-GLUCOSE METER 116 mg/dL 70-110 H : Notified RN/MD: ([facility]) (test code = TESTED AT [facility] 3147 4590) [facility], [address]: Route Sales Delivery Drivers Supervisor/Techni zaire ID = [id number] for Juan Diego Bertrand BASIC METABOLIC [id number] 20:36:47 Test Item Value Reference Range Interpretation [...] not appl icable for dialysis patien ts Route Sales Delivery Drivers Supervisor ID - BETTE [id number] 20:28:22 Test Item Value Reference Range Interpretation Comments PHOSPHORUS (BEAKER) (test code = 2.1 mg/dL 2.3-4.7 L 604) Route Sales Delivery Drivers Supervisor ID - BETTE GHEPATIC FUNCTION [id number] 20:28:22 Test Item Value Reference Range Interpretation [...] (test code = 51 U/L 6-55 347) Route Sales Delivery Drivers Supervisor ID - BETTE GGAMMA GLUTAMYL TRANSFERASE (GGT)2022-09-18 20:28:22 Test Item Value Reference Range Interpretation Comments GAMMA GLUTAMYL TRANSFERASE (BEAKER) 204 U/L 9-64 H (test code = 364) Route Sales Delivery Drivers Supervisor ID - BETTE [id number] 20:28:21 Test Item Value Reference Range Interpretation Comments MAGNESIUM (BEAKER) (test code = 1.5 mg/dL 1.6-2.6 L 627) Route Sales Delivery Drivers Supervisor ID - BETTE GPROTHROMBIN TIME/[id number] 20:10:22 Test Item Value Reference Range Interpretation [...] mechanical heart valves.CBC W/PLT COUNT & AUTO [id number] 19:57:12 Test Item Value Reference Range Interpretation [...] PERCENT (BEAKER) (test code = 2801) POCT-GLUCOSE [id number] 17:55:56 Test Item Value Reference Range Interpretation Comments POC-GLUCOSE METER 197 mg/dL 70-110 H : [facility] (BEAKER) (test code = [place], 1538) [address]: Route Sales Delivery Drivers Supervisor/Techni zaire ID = [id number] for Ga ry Sejal TACROLIMUS [id number] 11:28:47 Test Item Value Reference Range Interpretation Comments TACROLIMUS BLOOD 4.0 ng/mL 10.0-20.0 L Test perfor med on [place] (BEAKER) (test code Architec t Immunoassay = 657) system with Chemiluminescen t Microparticle I mmunoassay (CMIA) technolo gy. Route Sales Delivery Drivers Supervisor ID - [id number] 10:30:21 Test Item Value Reference Range Interpretation Comments MAGNESIUM (BEAKER) (test code = 1.3 mg/dL 1.6-2.6 L 627) Route Sales Delivery Drivers Supervisor ID - [id number] 10:30:21 Test Item Value Reference Range Interpretation Comments PHOSPHORUS (BEAKER) (test code = 4.0 mg/dL 2.3-4.7 604) Route Sales Delivery Drivers Supervisor ID - MORENITA, [id number] 10:30:21 Test Item Value Reference Range Interpretation Comments BILIRUBIN DIRECT (BEAKER) (test 2.0 mg/dL 0.1-0.5 H code = 706) Route Sales Delivery Drivers Supervisor ID - BRYCEYCOMPREHENSIVE METABOLIC [id number] 10:30:20 Test Item Value Reference Range Interpretation [...] not appl icable for dialysis patien ts Route Sales Delivery Drivers Supervisor ID - JUDYCBC W/PLT COUNT & AUTO [id number] 10:16:35 Test Item Value Reference Range Interpretation [...] (BEAKER) (test code = 2801) HIV-1 PCR, [id number] 16:00:29 Test Item Value Reference Range Interpretation Comments HIV-1 RESULT HIV RNA not detected HIV RNA not detected COMPONENT (BEAKER) (test code = 2703) MISCELLANEOUS LAB [id number] 14:40:47 Test Item Value Reference Range Interpretation Comments SCAN RESULT (test see scanned report See scanned report. code = 1136175) HEPATITIS B PCR, [id number] 13:39:52 Test Item Value Reference Range Interpretation Comments HBV RESULT COMPONENT HBV DNA not detected HBV DNA not detected (BEAKER) (test code = 2701) HEPATITIS C PCR, [id number] 09:14:14 Test Item Value Reference Range Interpretation Comments HCV RESULT COMPONENT HCV RNA not detected HCV RNA not detected (BEAKER) (test code = 2699) TACROLIMUS [id number] 13:03:22 Test Item Value Reference Range Interpretation Comments TACROLIMUS BLOOD 8.0 ng/mL 10.0-20.0 L Test perfor med on Calhoun (BEAKER) (test code Architec t Immunoassay = 657) system with Chemiluminescen t Microparticle I mmunoassay (CMIA) technolo gy. Route Sales Delivery Drivers Supervisor ID - [id number] 11:56:02 Test Item Value Reference Range Interpretation Comments PHOSPHORUS (BEAKER) 3.4 mg/dL 2.3-4.7 Specimen slightly (test code = 604) hemolyzed Route Sales Delivery Drivers Supervisor ID - ADMINCOMPREHENSIVE METABOLIC [id number] 11:56:02 Test Item Value Reference Range Interpretation [...] hemolyzed code = 347) EGFR (BEAKER) 101 Interpretatio [...] not appl icable for dialysis patien ts Route Sales Delivery Drivers Supervisor ID - ADMINSpecimen slightly ictericBILIRUBIN, [id number] 11:56:02 Test Item Value Reference Range Interpretation Comments BILIRUBIN DIRECT 1.5 mg/dL 0.1-0.5 H Specimen sl ightly (BEAKER) (test code = hemoly zed 706) Route Sales Delivery Drivers Supervisor ID - [id number] 11:56:01 Test Item Value Reference Range Interpretation Comments MAGNESIUM (BEAKER) 1.2 mg/dL 1.6-2.6 L Specimen slightly (test code = 627) hemolyzed Route Sales Delivery Drivers Supervisor ID - ADMINCBC W/PLT COUNT & AUTO [id number] 11:44:09 Test Item Value Reference Range Interpretation [...] (test code = 2801) Fungus culture + [id number] 18:28:18 Test Item Value Reference Range Interpretation Comments Result (test code = No fungus isolated in 6463-4) 28 days Fungus Smear (test No fungi seen code = 1406) [facility] [id number] 18:28:18 Test Item Value Reference Range Interpretation Comments CULTURE (BEAKER) (test No fungus isolated in code = 1095) 28 days FUNGUS SMEAR (BEAKER) No fungi seen (test code = 1406) TACROLIMUS [id number] 08:49:30 Test Item Value Reference Range Interpretation Comments TACROLIMUS BLOOD 13.7 ng/mL 10.0-20.0 Test perfor med on Calhoun (BEAKER) (test code Architec t Immunoassay = 657) system with Chemiluminescen t Microparticle Immunoassay (CM IA) technology. Route Sales Delivery Drivers Supervisor ID - ADMINPOC-Glucose [id number] 07:42:08 Test Item Value Reference Range Interpretation Comments POC-Glucose Meter (test 98 mg/dL 70-110 : TE STED AT [facility] code = 1538) [address] [facility], 770 30: Route Sales Delivery Drivers Supervisor/Techni zaire ID = [id number] for CORY [place] Lab Interpretation (test Normal code = 10665-1) [facility] [id number] 07:42:08 Test Item Value Reference Range Interpretation Comments POC-GLUCOSE METER 98 mg/dL 70-110 : TESTED A T [facility] 6720 (BEAKER) (test code = NICOLE Arita [facility], 1538) [address]: Route Sales Delivery Drivers Supervisor/Techni zaire ID = [id number] for CORY [place]ES HEPATIC FUNCTION [id number] 05:59:26 Test Item Value Reference Range Interpretation [...] (test code = 35 U/L 6-55 347) Route Sales Delivery Drivers Supervisor ID - [id number] 05:59:25 Test Item Value Reference Range Interpretation Comments MAGNESIUM (BEAKER) (test code = 1.4 mg/dL 1.6-2.6 L 627) Route Sales Delivery Drivers Supervisor ID - IRKLNFJRCDOYAWV5763-58-38 05:59:25 Test Item Value Reference Range Interpretation Comments PHOSPHORUS (BEAKER) (test code = 2.9 mg/dL 2.3-4.7 604) Route Sales Delivery Drivers Supervisor ID - MARCOBASIC METABOLIC [id number] 05:59:24 Test Item Value Reference Range Interpretation [...] not appl icable for dialysis patien ts Route Sales Delivery Drivers Supervisor ID - [id number] 05:41:21 Test Item Value Reference Range Interpretation Comments PARTIAL THROMBOPLASTIN TIME 26.0 seconds 22.5-36.0 (BEAKER) (test code = 760) PROTHROMBIN TIME/[id number] 05:41:00 Test Item Value Reference Range Interpretation [...] mechanical heart valves.CBC W/PLT COUNT & AUTO [id number] 05:32:55 Test Item Value Reference Range Interpretation [...] PERCENT (BEAKER) (test code = 2801) BLOOD [id number] 00:00:46 Test Item Value Reference Range Interpretation Comments CULTURE (BEAKER) (test No growth in 5 days code = 1095) BLOOD [id number] 00:00:45 Test Item Value Reference Range Interpretation Comments CULTURE (BEAKER) (test No growth in 5 days code = 1095) POCT-GLUCOSE [id number] 20:35:34 Test Item Value Reference Range Interpretation Comments POC-GLUCOSE METER 159 mg/dL 70-110 H : TESTED A T [facility] 6720 (BEAKER) (test code = [facility], 1538) [address]: Route Sales Delivery Drivers Supervisor/Techni zaire ID = [id number] for Milan Ramires POCT-GLUCOSE [id number] 16:24:56 Test Item Value Reference Range Interpretation Comments POC-GLUCOSE METER 368 mg/dL 70-110 H : TESTED A T [facility] 6720 ([facility]) (test code = [facility], 1538) 687[address]: Route Sales Delivery Drivers Supervisor/Techni zaire ID = [id number] for MENDEZ LONGO POCT-GLUCOSE [id number] 11:16:20 Test Item Value Reference Range Interpretation Comments POC-GLUCOSE METER 236 mg/dL 70-110 H : TESTED A T [facility] 6720 ([facility]) (test code = [facility], 1538) 04672: Route Sales Delivery Drivers Supervisor/Techni zaire ID = [id number] for MENDEZ LONGO TACROLIMUS [id number] 10:13:17 Test Item Value Reference Range Interpretation Comments TACROLIMUS BLOOD 11.9 ng/mL 10.0-20.0 Test perfor med on Calhoun (AKER) (test code Architec t Immunoassay = 657) system with Chemiluminescen t Microparticle Immunoassay (CM IA) technology. Route Sales Delivery Drivers Supervisor ID - ADMINPOCT-GLUCOSE [id number] 08:30:29 Test Item Value Reference Range Interpretation Comments POC-GLUCOSE METER 143 mg/dL 70-110 H : TESTED A T [facility] 6720 (AKER) (test code = [facility], 1538) 78166: Route Sales Delivery Drivers Supervisor/Techni zaire ID = [id number] for MENDEZ LONGO HEPATIC FUNCTION [id number] 06:10:02 Test Item Value Reference Range Interpretation [...] (test code = 33 U/L 6-55 347) Route Sales Delivery Drivers Supervisor ID - MMGAMMA GLUTAMYL TRANSFERASE (GGT)2022-09-10 06:10:02 Test Item Value Reference Range Interpretation Comments GAMMA GLUTAMYL TRANSFERASE (BEAKER) 149 U/L 9-64 H (test code = 364) Route Sales Delivery Drivers Supervisor ID - [id number] 06:10:01 Test Item Value Reference Range Interpretation Comments MAGNESIUM (BEAKER) (test code = 1.6 mg/dL 1.6-2.6 627) Route Sales Delivery Drivers Supervisor ID - [id number] 06:10:01 Test Item Value Reference Range Interpretation Comments PHOSPHORUS (BEAKER) (test code = 2.9 mg/dL 2.3-4.7 604) Route Sales Delivery Drivers Supervisor ID - MMBASIC METABOLIC [id number] 06:10:00 Test Item Value Reference Range Interpretation [...] not appl icable for dialysis patien ts Route Sales Delivery Drivers Supervisor ID - [id number] 06:00:55 Test Item Value Reference Range Interpretation Comments PARTIAL THROMBOPLASTIN TIME 26.0 seconds 22.5-36.0 (BEAKER) (test code = 760) PROTHROMBIN TIME/[id number] 06:00:13 Test Item Value Reference Range Interpretation [...] mechanical heart valves.CBC W/PLT COUNT & AUTO [id number] 05:52:36 Test Item Value Reference Range Interpretation [...] PERCENT (BEAKER) (test code = 2801) POCT-GLUCOSE [id number] 22:14:31 Test Item Value Reference Range Interpretation Comments POC-GLUCOSE METER 244 mg/dL 70-110 H : TESTED A T [facility] 6720 (BEAKER) (test code = [facility], 153) 27606: Route Sales Delivery Drivers Supervisor/Techni zaire ID = [id number] for Re Kendra jackson POCT-GLUCOSE [id number] 17:32:55 Test Item Value Reference Range Interpretation Comments POC-GLUCOSE METER 321 mg/dL 70-110 H : TESTED A T [facility] 6720 (BEAKER) (test code = [facility], 1538) 14119: Route Sales Delivery Drivers Supervisor/Techni zaire ID = [id number] for Re Nadia jackson POCT-GLUCOSE [id number] 12:35:30 Test Item Value Reference Range Interpretation Comments POC-GLUCOSE METER 156 mg/dL 70-110 H : TESTED A T [facility] 6720 (BEAKER) (test code = [facility], 1538) 16372: Route Sales Delivery Drivers Supervisor/Techni zaire ID = [id number] for CHRISTINE ARCINIEGA [place], [id number] 11:55:00REFERRING : CHERELLE SALVADOR Abnormal imaging Reason for exam:->[facility] : 1955 Sex: MAn imaging unit was utilized for this procedure. No radiologist interpretation was requested. Refer to the EMR for findings. Refer to PACS for any patient radiation dose information.TACROLIMUS [id number] 09:57:35 Test Item Value Reference Range Interpretation Comments TACROLIMUS BLOOD 9.6 ng/mL 10.0-20.0 L Test perfor med on Calhoun (BEAKER) (test code Architec t Immunoassay = 657) system with Chemiluminescen t Microparticle I mmunoassay (CMIA) technolo gy. Route Sales Delivery Drivers Supervisor ID - ADMINURINE [id number] 09:00:47 Test Item Value Reference Range Interpretation [...] interpret this result as normal/abnormal . POCT-GLUCOSE [id number] 08:13:37 Test Item Value Reference Range Interpretation Comments POC-GLUCOSE METER 88 mg/dL 70-110 : TESTED A T [facility] 6720 (BEAKER) (test code = [place], 1538) [address]: Route Sales Delivery Drivers Supervisor/Techni zaire ID = [id number] for Nadia Brenner BASIC METABOLIC [id number] 07:08:45 Test Item Value Reference Range Interpretation [...] (test code = 697) EGFR (BEAKER) 105 Interpretati on of eGFR (test code = mL/min/1.73 values [...] not appl icable for dialysis patien ts Route Sales Delivery Drivers Supervisor ID - MARIOGAMMA GLUTAMYL TRANSFERASE (GGT)2022-09-09 07:08:35 Test Item Value Reference Range Interpretation Comments GAMMA GLUTAMYL 163 U/L 9-64 H Specimen slig htly TRANSFERASE (BEAKER) hemolyz ed (test code = 364) Route Sales Delivery Drivers Supervisor ID - IREERVCGHBPIHTE9336-08-30 07:08:34 Test Item Value Reference Range Interpretation Comments PHOSPHORUS (BEAKER) 2.5 mg/dL 2.3-4.7 Specimen slightly (test code = 604) hemolyzed Route Sales Delivery Drivers Supervisor ID - MARIOHEPATIC FUNCTION [id number] 07:08:34 Test Item Value Reference Range Interpretation [...] Specimen slightly (test code = 347) hemolyzed Route Sales Delivery Drivers Supervisor ID - [id number] 07:08:33 Test Item Value Reference Range Interpretation Comments MAGNESIUM (BEAKER) 1.5 mg/dL 1.6-2.6 L Specimen slightly (test code = 627) hemolyzed Route Sales Delivery Drivers Supervisor ID - [id number] 06:54:08 Test Item Value Reference Range Interpretation Comments PARTIAL THROMBOPLASTIN TIME 25.3 seconds 22.5-36.0 (BEAKER) (test code = 760) PROTHROMBIN TIME/[id number] 06:53:26 Test Item Value Reference Range Interpretation [...] mechanical heart valves.CBC W/PLT COUNT & AUTO [id number] 06:47:33 Test Item Value Reference Range Interpretation [...] PERCENT (BEAKER) (test code = 2801) POCT-GLUCOSE [id number] 21:59:34 Test Item Value Reference Range Interpretation Comments POC-GLUCOSE METER 113 mg/dL 70-110 H : TESTED A T [facility] 6720 (BEAKER) (test code [facility], = 1538) 07717: Route Sales Delivery Drivers Supervisor/Techni zaire ID = [id number] for Katia Aguiar POCT-GLUCOSE [id number] 17:25:44 Test Item Value Reference Range Interpretation Comments POC-GLUCOSE METER 376 mg/dL 70-110 H : TESTED A T [facility] 6720 (BEAKER) (test code = NICOLE Arita [facility], 1538) 85248: Route Sales Delivery Drivers Supervisor/Techni zaire ID = [id number] for Ra gaurang [place] Respiratory Panel [id number] 16:40:03 Test Item Value Reference Range Interpretation Comments Human Metapneumovirus Detected Not detected, A Conta ct (test code = 63903-1) Equivocal isolat ion. Consider stopping antibiotics. Rhinovirus (test code Not detected Not detected, = 94471-8) Equivocal INFLUENZA A (NO Not detected Not detected, SUBTYPE) (test code = Equivocal 65989-3) Influenza A subtype H1 (test code = 95381-6) Influenza A Subtype H3 (test code = 65087-7) Influenza A Subtype H1-2009 (test code = 74598-9) Influenza B (test Not detected Not detected, code = 28354-8) Equivocal Respiratory Syncytial Not detected Not detected, Virus (test code = Equivocal 42570-2) Parainfluenza Virus 1 Not detected Not detected, (test code = 59231-0) Equivocal Parainfluenza Virus 2 Not detected Not detected, (test code = 11325-6) Equivocal Parainfluenza virus 3 Not detected Not detected, (test code = 27703-0) Equivocal Parainfluenza Virus 4 Not detected Not detected, (test code = 84434-1) Equivocal Adenovirus (test code Not detected Not detected, = 18336-0) Equivocal Coronavirus 229E Not detected Not detected, (test code = 43951-8) Equivocal Coronavirus HKU1 Not detected Not detected, (test code = 35105-8) Equivocal Coronavirus NL63 Not detected Not detected, (test code = 84241-1) Equivocal Coronavirus OC43 Not detected Not detected, (test code = 27819-6) Equivocal Bordetella Pertussis Not detected Not detected, (test code = 37779-2) Equivocal Chlamydophila Not detected Not detected, Pneumoniae (test code Equivocal = 53717-5) Mycoplasma Pneumoniae Not detected Not detected, (test code = 89506-4) Equivocal Severe Acute Not detected Not detected, Bjpwycytdie-WyB-4 Equivocal (test code = 15187-9) Bordtella Not detected Not detected, Parapertussis (test Equivocal code = 04332-2) MADALYN (test code = MADALYN) Other viruses and bacteria not targeted by this PCR panel cannot be excluded; therefore clinical correlation and follow up of serology, culture results, and other molecular studies is required. The results are not intended to be used as the sole means for clinical diagnosis or patient management decisions. This sample was tested at the [facility] using the Andigilog Respiratory Panel. It is FDA cleared and has been verified and approved by the [facility] for clinical use on nasopharyngeal swab specimens. The performance of the FilmArray RP has not been established in individuals who received influenza vaccine. Recent administration of a nasal influenza vaccine may cause false positive results for Influenza A and/orInfluenza B. Lab Interpretation Abnormal (test code = 63102-1) [facility] [id number] 16:40:03 Test Item Value Reference Range Interpretation [...] SEVERE ACUTE RESPIRATORY Not detected Not detected, [id number]-XKELISNVZLL-9 Equivocal (test code = 3409068) BORDETELLA PARAPERTUSSIS Not detected Not detected, (BKR) (test code = Equivocal 5858288) Other viruses and bacteria not targeted by this PCR panel cannot be excluded; therefore clinical correlation and follow up of serology, culture results, and other molecular studies is required. The results are not intended to be used as the sole means for clinical diagnosis or patient management decisions. This sample was tested at the [facility] using the AgeCheqArray Respiratory Panel. It is FDA cleared and has been verified and approved by the [facility] for clinical use on nasopharyngeal swab specimens.The performance of the FilmArrayRP has not been established in individuals who received influenza vaccine. Recent administration of a nasal influenza vaccine may cause false positive results for Influenza A and/orInfluenza B.[id number] 16:37:04 Test Item Value Reference Range Interpretation Comments PROSTATE SPECIFIC ANTIGEN (BEAKER) 3.9 ng/mL 0.0-4.0 (test code = 844) Route Sales Delivery Drivers Supervisor ID - BSTACROLIMUS [id number] 11:43:02 Test Item Value Reference Range Interpretation Comments TACROLIMUS BLOOD 11.0 ng/mL 10.0-20.0 Test perfor med on Calhoun (BEAKER) (test code Architec t Immunoassay = 657) system with Chemiluminescen t Microparticle Immunoassay (CM IA) technology. Route Sales Delivery Drivers Supervisor ID - ADMINSputum Culture + Gram [id number] 09:56:14 Test Item Value Reference Range Interpretation Comments Result (test code = 4+ Normal respiratory 6463-4) rosalie present Gram Stain Result <1+ gram positive cocci (test code = 1123) in chains and clusters MADALYN (test code = MADALYN) [facility]AM [id number] 09:56:14 Test Item Value Reference Range Interpretation Comments CULTURE (BEAKER) 4+ Normal respiratory (test code = 1095) rosalie present GRAM STAIN RESULT <1+ WBCs (BEAKER) (test code = 1123) GRAM STAIN RESULT 0-5 epithelial cells (BEAKER) (test code = 007083) GRAM STAIN RESULT <1+ gram positive rods (BEAKER) (test code = 234517) GRAM STAIN RESULT 1+ gram positive cocci (BEAKER) (test code = in pairs 301385) GRAM STAIN RESULT <1+ gram positive cocci (BEAKER) (test code = in chains and clusters 835524) POCT-GLUCOSE [id number] 08:28:03 Test Item Value Reference Range Interpretation Comments POC-GLUCOSE METER 113 mg/dL 70-110 H : TESTED A T [facility] 6720 (BEAKER) (test code = NICOLE Arita [facility], 1538) 42744: Route Sales Delivery Drivers Supervisor/Techni zaire ID = [id number] for Ra gaurang Sierra BASIC METABOLIC [id number] 08:05:27 Test Item Value Reference Range Interpretation [...] not appl icable for dialysis patien ts Route Sales Delivery Drivers Supervisor ID - MARIOGAMMA GLUTAMYL TRANSFERASE (GGT)2022-09-08 06:59:43 Test Item Value Reference Range Interpretation Comments GAMMA GLUTAMYL TRANSFERASE (BEAKER) 150 U/L 9-64 H (test code = 364) Route Sales Delivery Drivers Supervisor ID - [id number] 06:59:42 Test Item Value Reference Range Interpretation Comments PHOSPHORUS (BEAKER) (test code = 2.4 mg/dL 2.3-4.7 604) Route Sales Delivery Drivers Supervisor ID - MARIOHEPATIC FUNCTION [id number] 06:59:42 Test Item Value Reference Range Interpretation [...] (test code = 45 U/L 6-55 347) Route Sales Delivery Drivers Supervisor ID - [id number] 06:59:41 Test Item Value Reference Range Interpretation Comments MAGNESIUM (BEAKER) (test code = 1.8 mg/dL 1.6-2.6 627) Route Sales Delivery Drivers Supervisor ID - RODOCBC W/PLT COUNT & AUTO [id number] 06:08:27 Test Item Value Reference Range Interpretation [...] H PERCENT (BEAKER) (test code = 2801) [id number] 06:07:26 Test Item Value Reference Range Interpretation Comments PARTIAL THROMBOPLASTIN TIME 24.3 seconds 22.5-36.0 (BEAKER) (test code = 760) PROTHROMBIN TIME/[id number] 06:06:45 Test Item Value Reference Range Interpretation Comments PROTIME (BEAKER) (test code = 14.7 seconds 11.9-14.2 H 759) INR (BEAKER) (test code = 370) 1.18 <=5.90 RECOMMENDED COUMADIN/WARFARIN INR THERAPY RANGESSTANDARD DOSE: 2.0 - 3.0 Includes: PROPHYLAXIS for venous thrombosis, systemic embolization; TREATMENT for venous thrombosis and/or pulmonary embolus.HIGH RISK: Target INR is 2.5-3.5 for patients with mechanical heart valves.POCT-GLUCOSE [id number] 21:49:24 Test Item Value Reference Range Interpretation Comments POC-GLUCOSE METER 217 mg/dL 70-110 H : TESTED A T [facility] 6720 ([employer]) (test code [facility], = 1538) 02348: Route Sales Delivery Drivers Supervisor/Techni zaire ID = [id number] for Case Katia merlos POCT-GLUCOSE [id number] 12:58:46 Test Item Value Reference Range Interpretation Comments POC-GLUCOSE METER 212 mg/dL 70-110 H : TESTED A T [facility] [address] ([employer]) (test code = NICOLE Arita [facility], 1538) 54041: Route Sales Delivery Drivers Supervisor/Techni zaire ID = [id number] for WENDY WINSLOW TACROLIMUS [id number] 10:43:19 Test Item Value Reference Range Interpretation Comments TACROLIMUS BLOOD 9.2 ng/mL 10.0-20.0 L Test perfor med on Calhoun (BEAKER) (test code Architec t Immunoassay = 657) system with Chemiluminescen t Microparticle I mmunoassay (CMIA) technolo gy. Route Sales Delivery Drivers Supervisor ID - ADMINGAMMA GLUTAMYL TRANSFERASE (GGT)2022-09-07 07:57:48 Test Item Value Reference Range Interpretation Comments GAMMA GLUTAMYL TRANSFERASE (BEAKER) 138 U/L 9-64 H (test code = 364) Route Sales Delivery Drivers Supervisor ID - LIZ WPOCT-GLUCOSE [id number] 07:38:21 Test Item Value Reference Range Interpretation Comments POC-GLUCOSE METER 73 mg/dL 70-110 : TESTED A T [facility] 6720 (BEAKER) (test code = NICOLE Arita [place], 1538) 91317: Route Sales Delivery Drivers Supervisor/Techni zaire ID = [id number] for STEPHANIA REJIWENDY CBC W/PLT COUNT & AUTO [id number] 07:29:28 Test Item Value Reference Range Interpretation [...] (BEAKER) (test code = 2801) BASIC METABOLIC [id number] 07:06:01 Test Item Value Reference Range Interpretation [...] not appl icable for dialysis patien ts Route Sales Delivery Drivers Supervisor ID - DBHEPATIC FUNCTION [id number] 06:54:25 Test Item Value Reference Range Interpretation [...] (test code = 44 U/L 6-55 347) Route Sales Delivery Drivers Supervisor ID - [id number] 06:54:24 Test Item Value Reference Range Interpretation Comments MAGNESIUM (BEAKER) (test code = 1.5 mg/dL 1.6-2.6 L 627) Route Sales Delivery Drivers Supervisor ID - [id number] 06:54:24 Test Item Value Reference Range Interpretation Comments PHOSPHORUS (BEAKER) (test code = 2.3 mg/dL 2.3-4.7 604) Route Sales Delivery Drivers Supervisor ID - [id number] 06:44:22 Test Item Value Reference Range Interpretation Comments PARTIAL THROMBOPLASTIN TIME 22.2 seconds 22.5-36.0 L (BEAKER) (test code = 760) PROTHROMBIN TIME/[id number] 06:43:44 Test Item Value Reference Range Interpretation Comments PROTIME (BEAKER) (test code = 13.9 seconds 11.9-14.2 759) INR (BEAKER) (test code = 370) 1.09 <=5.90 RECOMMENDED COUMADIN/WARFARIN INR THERAPY RANGESSTANDARD DOSE: 2.0 - 3.0 Includes: PROPHYLAXIS for venous thrombosis, systemic embolization; TREATMENT for venous thrombosis and/or pulmonary embolus.HIGH RISK: Target INR is 2.5-3.5 for patients with mechanical heart valves.EBV VIRAL [id number] 06:17:44 Test Item Value Reference Range Interpretation Comments EBV VIRAL LOAD - Negative or below See_Comment [Auto mated message] NEGATIVE (BEJOSE) the linear range The sy stem which (test code = of the assay generated this 2559) (<500 IU /mL) result transmi tted reference range : <500 - >5,00 0,000 IU/mL. The refe rence range was not u sed to interpret th is result as normal/abnormal . POCT-GLUCOSE [id number] 23:37:17 Test Item Value Reference Range Interpretation Comments POC-GLUCOSE METER 152 mg/dL 70-110 H : TESTED A T [facility] 6720 ([employer]) (test code = [facility], 1538) 41306: Route Sales Delivery Drivers Supervisor/Techni zaire ID = [id number] for Kinza Santos POCT-GLUCOSE [id number] 16:46:53 Test Item Value Reference Range Interpretation Comments POC-GLUCOSE METER 308 mg/dL 70-110 H : TESTED A T [facility] 6720 ([employer]) (test code = [facility], 1538) 44270: Route Sales Delivery Drivers Supervisor/Techni zaire ID = [id number] for Braxton Butler Rapid drug screen, [id number] 16:46:32 Test Item Value Reference Range Interpretation Comments Barbiturate Screen Negative Negative (test code = 55070-3) Benzodiazepine Screen Negative Negative (test code = 98820-2) Cocaine (Metab.) Negative Negative Screen (test code = 3397-7) Methadone Screen (test Negative Negative code = 75543-8) Opiate Screen (test Negative Negative code = 86529-6) Cannabinoid Screen Negative Negative (test code = 73864-2) Amph/Methamph Screen Negative Negative (test code = 11823-8) Phencyclidine Screen Negative Negative (test code = 31425-8) pH, UA (test code = 7.5 5.0-8.0 5803-2) MADALYN (test code = MADALYN) DRUG CUTOFF CONC.Cocaine 300 ng/mL Cannabinoid 50 ng/mLBenzodiazepine 200 ng/mLBarbiturate 200 ng/mLPhencyclidine 25 ng/mLOpiate 300 ng/mLMethadone 300 ng/mLAmphetamine/ 1000 ng/mL Methamphetamine This assay provides an unconfirmed qualitative test result for the clinical management of patients in emergency situations. Chain of custody not maintained. Some mhhu-kum-youisdj medications, as well as adulterants, may cause inaccurate results. Clinical correlation should be applied. A more comprehensive drug screen or confirmation of a detected drug may be performed upon request.Route Sales Delivery Drivers Supervisor ID - DB Lab Interpretation Normal (test code = 27078-3) [facility] S[facility], [id number] 16:46:32 Test Item Value Reference Range Interpretation [...] situations. Chain of custody not maintained. Some tbej-ddq-imlryhi medications, as well as adulterants, may cause inaccurate results. Clinical correlation should be applied. A more comprehensive drug screen or confirmation of a detected drug may be performed upon request.Route Sales Delivery Drivers Supervisor ID - DBCMV PCR, [id number] 14:32:59 Test Item Value Reference Range Interpretation Comments CMV VIRAL LOAD - Negative or below See_Comment [Auto mated message] NEGATIVE (BEAKER) the linear range The sy stem which (test code = of the assay generated this 2558) (<300 IU/mL) result transmit lisa reference range : <300 - >3,00 0,000 IU/mL. The refe rence range was not u sed to interpret th is result as normal/abnormal . POCT-GLUCOSE [id number] 12:25:03 Test Item Value Reference Range Interpretation Comments POC-GLUCOSE METER 243 mg/dL 70-110 H : TESTED A T [facility] 6720 (BEAKER) (test code = [facility], 1538) 27544: Route Sales Delivery Drivers Supervisor/Techni zaire ID = [id number] for Braxton Butler TACROLIMUS [id number] 09:49:58 Test Item Value Reference Range Interpretation Comments TACROLIMUS BLOOD 7.0 ng/mL 10.0-20.0 L Test perfor med on [place] (BEAKER) (test code Architec t Immunoassay = 657) system with Chemiluminescen t Microparticle I mmunoassay (CMIA) technolo gy. Route Sales Delivery Drivers Supervisor ID - ADMINPOCT-GLUCOSE [id number] 09:16:11 Test Item Value Reference Range Interpretation Comments POC-GLUCOSE METER 130 mg/dL 70-110 H : TESTED A T [facility] 6720 (BEAKER) (test code = [facility], 1538) 97652: Route Sales Delivery Drivers Supervisor/Techni zaire ID = [id number] for Brxaton Butler BASIC METABOLIC [id number] 08:10:08 Test Item Value Reference Range Interpretation [...] not appl icable for dialysis patien ts Route Sales Delivery Drivers Supervisor ID - MARCOGAMMA GLUTAMYL TRANSFERASE (GGT)2022-09-06 07:48:35 Test Item Value Reference Range Interpretation Comments GAMMA GLUTAMYL TRANSFERASE (BEAKER) 123 U/L 9-64 H (test code = 364) Route Sales Delivery Drivers Supervisor ID - CEFJDHMVOFLGAZA9778-24-55 07:48:34 Test Item Value Reference Range Interpretation Comments PHOSPHORUS (BEAKER) (test code = 3.0 mg/dL 2.3-4.7 604) Route Sales Delivery Drivers Supervisor ID - MARCOHEPATIC FUNCTION [id number] 07:48:34 Test Item Value Reference Range Interpretation [...] (test code = 48 U/L 6-55 347) Route Sales Delivery Drivers Supervisor ID - [id number] 07:48:33 Test Item Value Reference Range Interpretation Comments MAGNESIUM (BEAKER) (test code = 1.9 mg/dL 1.6-2.6 627) Route Sales Delivery Drivers Supervisor ID - [id number] 07:23:15 Test Item Value Reference Range Interpretation Comments PARTIAL THROMBOPLASTIN TIME 24.1 seconds 22.5-36.0 (BEAKER) (test code = 760) PROTHROMBIN TIME/[id number] 07:22:29 Test Item Value Reference Range Interpretation [...] mechanical heart valves.CBC W/PLT COUNT & AUTO [id number] 07:15:49 Test Item Value Reference Range Interpretation [...] (test code = 2801) U/S, ABDOMINAL, WITH [id number] 03:06:00REFERRING MD: CHERELLE SALVADOR Reason for exam:->s/p OLT assess vessels [facility] : 1955 Sex: [...] SARS-Co V-2 (test code = target nucleic 72302-8) acids are not detected in thi s [...] rapid, real-srinivasa e RT-PCR test intended for th e qualitative detection of nucleic acid fr om SARS-CoV-2 in a nasopharyngeal swab specimen [facility] from individual s suspected of COVID-19 by [...] revoked sooner. Fact Sheet for Healthcare Providers: https://www.[employer]/Documents/Xp ert%20Xpress%20SAR S%20CoV-2/Fact%20S heets/302-3802%20S ARS-COV-2%20HEALTH CARE%20PROVIDERS%2 0FACT%20SHEET.pdf Fact Sheet for Healthcare Patients: https://www.[employer]/Documents/Xp ert%20Xpress%20SAR S%20CoV-2/Fact%20S heets/302-3801%20S ARS-COV-2%20PATIEN T%20FACT%20SHEET.p df Lab Interpretation Normal (test code = 31217-2) [facility]2022-09-05 23:27:57 Test Item Value Reference Range Interpretation Comments SARS-COV2/RT-PCR Negative Negative The SARS-Co V-2 target (test code = nucleic acids a re not 1656155) detected in thi s specimen. Negative result [...] revoked sooner. Fact Sheet for Healthcare Providers: https://www.[employer]/Documents/Xpert%20Xpress%20SARS%20CoV-2/Fact%20Sheets/302-3802%31XVFR-QBB-7%20 HEALTHCARE%20PROVIDERS%20FACT%20SHEET.pdf Fact Sheet for Healthcare Patients: https://www.[employer]/Documents/Xpert%20Xp ress%20SARS%20CoV-2/Fact%20Sheets/302-3801%91PBXB-NIV-0%20PATIENT%20FACT%20SHEET .pdfUrinalysis w/Microscopic + Reflex to [id number] 22:41:44 Test Item Value Reference Range Interpretation Comments Color, UA (test code Yellow = 5778-6) Clarity, UA (test Clear code = 5767-9) Specific [place], UA 1.001-1.035 H (test code = 5811-5) pH, UA (test code = 7.5 5.0-8.0 5803-2) Protein, UA (test 50 mg/dL Negative A code = 47489-6) Glucose, UA (test Negative Negative code = 365) Ketones, UA (test Negative Negative code = 2514-8) Bilirubin, UA (test Positive Negative A code = 03181-0) Blood, UA (test code Negative Negative = 15947-0) Nitrite, UA (test Negative Negative code = 5802-4) Leukocytes, UA (test Negative Negative code = 5799-2) Urobilinogen, UA 2 0.2-1.0 H (test code = 38996-7) RBC, UA (test code = 7 See_Comment [Autom ated 10002-8) message] The system which generated this result [...] UA See_Comment [Automate d (test code = 64903-7) messag e] The system which generated this result transmit lisa reference range : /HPF. The reference range was not used to interpret this result as normal/abnormal . Specimen Source (test code = 2795) MADALYN (test code = MADALYN) Route Sales Delivery Drivers Supervisor ID - [auto]Route Sales Delivery Drivers Supervisor ID - tech Lab Interpretation Abnormal (test code = 35441-6) [facility] UR[facility] [id number] 22:41:44 Test Item Value Reference Range Interpretation [...] = 516) SOURCE(BEAKER) (test code = 2795) Route Sales Delivery Drivers Supervisor ID - [auto]Route Sales Delivery Drivers Supervisor ID - techBASIC METABOLIC [id number] 22:37:07 Test Item Value Reference Range Interpretation [...] not appl icable for dialysis patien ts Route Sales Delivery Drivers Supervisor ID - DBB-TYPE NATRIURETIC FACTOR (BNP)2022-09-05 22:36:14 Test Item Value Reference Range Interpretation Comments B-TYPE NATRIURETIC PEPTIDE (BEAKER) 64 pg/mL 0-100 (test code = 700) Route Sales Delivery Drivers Supervisor ID - DBGAMMA GLUTAMYL TRANSFERASE (GGT)2022-09-05 22:32:13 Test Item Value Reference Range Interpretation Comments GAMMA GLUTAMYL TRANSFERASE (BEAKER) 139 U/L 9-64 H (test code = 364) Route Sales Delivery Drivers Supervisor ID - DBHEPATIC FUNCTION [id number] 22:32:12 Test Item Value Reference Range Interpretation [...] (test code = 50 U/L 6-55 347) Route Sales Delivery Drivers Supervisor ID - [id number] 22:32:11 Test Item Value Reference Range Interpretation Comments MAGNESIUM (BEAKER) (test code = 1.5 mg/dL 1.6-2.6 L 627) Route Sales Delivery Drivers Supervisor ID - [id number] 22:32:11 Test Item Value Reference Range Interpretation Comments PHOSPHORUS (BEAKER) (test code = 2.5 mg/dL 2.3-4.7 604) Route Sales Delivery Drivers Supervisor ID - DBCBC W/PLT COUNT & AUTO [id number] 22:20:26 Test Item Value Reference Range Interpretation [...] H PERCENT (BEAKER) (test code = 2801) [id number] 22:20:10 Test Item Value Reference Range Interpretation Comments PARTIAL THROMBOPLASTIN TIME 24.0 seconds 22.5-36.0 (BEAKER) (test code = 760) PROTHROMBIN TIME/[id number] 22:19:31 Test Item Value Reference Range Interpretation [...] mechanical heart valves.RAD, CHEST, 1 VIEW, NON [id number] 19:43:00REFERRING : CHERELLE SALVADOR Reason for exam:->[facility] : 1955 Sex: [...] abnormality. Upper abdomen: Unremarkable. Signed: Estella Colindres Verified Date/Time: 09/05/2022 19:43:50 Electronically signed by: ESTELLA COLINDRES MD on 307:43 PMTACROLIMUS [id number] 13:18:05 Test Item Value Reference Range Interpretation Comments TACROLIMUS BLOOD 7.5 ng/mL 10.0-20.0 L Test perfor med on [place] (BEAKER) (test code Architec t Immunoassay = 657) system with Chemiluminescen t Microparticle I mmunoassay (CMIA) technolo gy. Route Sales Delivery Drivers Supervisor ID - ADMINCOMPREHENSIVE METABOLIC [id number] 10:35:04 Test Item Value Reference Range Interpretation [...] not appl icable for dialysis patien ts Route Sales Delivery Drivers Supervisor ID - [id number] 10:35:04 Test Item Value Reference Range Interpretation Comments MAGNESIUM (BEAKER) (test code = 1.5 mg/dL 1.6-2.6 L 627) Route Sales Delivery Drivers Supervisor ID - [id number] 10:35:04 Test Item Value Reference Range Interpretation Comments PHOSPHORUS (BEAKER) (test code = 2.6 mg/dL 2.3-4.7 604) Route Sales Delivery Drivers Supervisor ID - JSBILIRUBIN, [id number] 10:35:04 Test Item Value Reference Range Interpretation Comments BILIRUBIN DIRECT (BEAKER) (test 1.7 mg/dL 0.1-0.5 H code = 706) Route Sales Delivery Drivers Supervisor ID - JSCBC W/PLT COUNT & AUTO [id number] 10:27:24 Test Item Value Reference Range Interpretation [...] PERCENT (BEAKER) (test code = 2801) TACROLIMUS [id number] 12:37:22 Test Item Value Reference Range Interpretation Comments TACROLIMUS BLOOD 6.1 ng/mL 10.0-20.0 L Test perfor med on [place] (BEAKER) (test code Architec t Immunoassay = 657) system with Chemiluminescen t Microparticle I mmunoassay (CMIA) omi khanna Route Sales Delivery Drivers Supervisor ID - ADMINCOMPREHENSIVE METABOLIC [id number] 11:08:08 Test Item Value Reference Range Interpretation [...] eGFR (test code = 1092) mL/min/1.73 values S tage Description sq m Result G1 Shahnaz l [...] not appl icable for dialysis patien ts Route Sales Delivery Drivers Supervisor ID - [id number] 11:03:50 Test Item Value Reference Range Interpretation Comments MAGNESIUM (BEAKER) 1.3 mg/dL 1.6-2.6 L Specimen slightly (test code = 627) hemolyzed Route Sales Delivery Drivers Supervisor ID - [id number] 11:03:50 Test Item Value Reference Range Interpretation Comments PHOSPHORUS (BEAKER) 3.2 mg/dL 2.3-4.7 Specimen slightly (test code = 604) hemolyzed Route Sales Delivery Drivers Supervisor ID - MARCOBILIRUBIN, [id number] 11:03:50 Test Item Value Reference Range Interpretation Comments BILIRUBIN DIRECT 0.8 mg/dL 0.1-0.5 H Specimen sl ightly (BEAKER) (test code = hemoly zed 706) Route Sales Delivery Drivers Supervisor ID - MARCOCBC W/PLT COUNT & AUTO [id number] 10:43:03 Test Item Value Reference Range Interpretation [...] PERCENT (BEAKER) (test code = 2801) Tissue [id number] 13:46:09 Test Item Value Reference Range Interpretation Comments Case Report (test code Surgical Pathology = 104) Report Case: [id number] Authorizing Provider: Shamar Michaels Jr., MD Collected: 08/17/2022 08:27 PM Ordering Location: [facility] Received: 08/18/2022 09:03 AM PERIOPERATIVE SERVICES Pathologist: Denise Martin MD Specimens: A) - Lymph Node, periportal lymph node B) - Liver, REDDING LIVER WITH GALLBLADDER, FOR BIOBANKING C) - Gallbladder, DONOR GALLBLADDER DIAGNOSIS (test code = g9iodYAaJXLih4piSLUpfWL 3220) uZzEwMzNcZnRuYmpcdWMxIH tccnRmMVxlcGljMTAyMDVcY O4goEkrrZv8rZmzSPUqtpI6 kHEsABcyn8hfFHW5x2tsaye dYPBuTBdlUm6bmZRijLnpTu VxGWAuIFi8dK56PUUraC7qc FCbWWu2MRIufHQfitXcXcXu YNXbpIJlaOY0NZZzAP5knhn mVGcgBXvlAJCvhqQ3OIDlyE BtE3WhEJDkFY1ehgwxRFJ0B EtaGLHhRZT2CaIrJZFff0Nc xdx6TvQdrTKfEBplmKPohsk jxpAkUMVfJBLEREQHBG1KND PWMSmQQKYEOR2QOENlELPAP 4xVOM8QQBZhdbEuPB5vLSYq aI0pjRNvKiJkfTzlNLd6fIA mPZ8hDUKbSPUcYMxaGFFymx giCFWbDq2nQXoHNrXNSQbYA AejQ5SYXJXBJHXREIWrXCKX UExBTlQsIFRPVEFMIEhFUEF YEDPWZ54WMFUczuNkREIboh Mjy6CutagqmXlurt3dFB0oF A3sJ7Varl1ulGsmxvwzb8Lg U4WhWOFoFsevpu7fbFDjqVY zRYUpUvIqHY0dOVrayN4est SuPAFkvSWykUNnsWhlFQ2cP FTaMGpwg0EfcLYvuFC4FCMs zqWmDS0eSJOih3ymvQVxSSp vmZX8h5WvtCp8nBKlPACcdg Ulhi6xCUDaMUYuyBzjdIBxR KKerHJab2LrJj2qtQcueHie fsXLAYLwTPRlnQH5eXWpFTN 5IHdlcmUgaWRlbnRpZmllZF pnDWObIXGVi3G6UZaegQAbR WHpJMobjNazU2dyiW1bhMRq nPq2EFLeo05yBdNtQTUhZS0 cDH2qsDRkAxrhOPYpdJP0mN caprKuty1seFJgnnV3xH6eZ HBhclxmaTAgLSBNaWxkIHN0 ILU1n3Qtv5tvGWKiZJIMGZH fEKAriIoqs50wFEWhNMGsoN 6goWJdp1gdGQFuUX85eZWjn GxlIGJpbGUgZHVjdCBjeXN0 cyBccGFyXHBhciBDIEdBTEx KZQVCIQNZMEWIDB8EZVTZX6 GBN5DHGCqrULBdgiSmcXUbu XNlIHBhcGlsbGFyeSBoeXBl dfFtMZCoWDQ4oXHyLGVtlw8 vhGQoK0czvITzzJQ9aFXww1 xwYXJccGFyfXtccnRmMVxzc 6SaHLqfLENgFC2rqSgcPROk YA0kWVFuB1gxeB3ahns3SeK zWZGoMjM8BHQfmtH4Sbc3AI JsSJhdu6aqe6VfXDBoJGv8k QwsYaHbKZTel5dgvhOxMcTz VUFmOLLiOBOrqYUeH749z5u el2bgmgAyfLD0UZByXBU2US bfrfUgplK9WHrcvBMeFtU1Z DtccmVkMFxncmVlbjBcYmx1 QVOgB154AML1yNhup4syDPD 2AAIwXCObUlJoLr6blQYeI4 43EOYmAVVQKNThqDb1DFVyl pFmxbNmoCIGa532H523a1tv NMXnldYroNvNjizza2nbK69 9XHBhcGVydzEyMjQwXHBhcG AzgGW3XDFzAA8coludHGzfI MceLIUpwwB6TQIvbNHjX8Mq MQYoLU1rfpmyTED7TAcjCPL nDIR4WyWxFWHzf2Qrfej0Bd Uigh2wsp48MXP5l4RmgOlyK RI3OYY7PmUyAi8ywWJgLHOx EA9lSqWcwFZlAXQcjd37aAo zLMkhBOL6XMRvmlHje1Jpm8 vlQtOrwaVsV0ztJ7CfBIFxH RNjXRLzScIcavEbv7Mmc1Gd iUMnuFi9q7slVKJwETOvvBi nd4ewCVT2PKXljXSuS3zuaN 5vDRUtWI1umoshk7irHZulO IdnIIZbbYC3nkC7CGMlvPEt J3MdzL5jROApEXudWYIhhmt 8UbGyIv3pzRRtgImzDEgbEq twYWdlXHBnbmNvbnRccGduZ GVjXHBsYWluXHBsYWluXGYw XGZzMjRccWxcbGFuZzEwMzN caGljaFxmMVxkYmNoXGYxXG xlR0awLeXmVmQoRck0FFYvg RFfQBVbHdu4GUTppSRuQRYA hJhvaK3rZTHkjRldjB0coBR 7IKYrfmAsjBKUqL7gXZNPjO 5zYgS4NLUoSmw7OUE7WjGqp GFyfX0= COMMENT (test code = e3mreNZkLYZibKCiKQZnFDu 1930) yyyYyDTFlrGWiR4FzcapfSL ngRQ0yUY1xcUrkdAHaqLHeL HFaAoVwm1ypp449dZNaa7am PPWOcaebyQs5fIqrD03sn6Y 6OfetB95tuVMzXWJ1UUSfFF WpkMBfNNEnLMN4RJWzqSHoD 7afYIQwJP5zfehdQZkgIDmb JOWjsCX7CVXmtKJkW0JjJEI eCVxtOPOuoai4SkHgZf5jfU VyeTcyMFxwYXJkXHBsYWluX TBeIsEaG0GvTHS9EMMqQX5x k1SpihMkuyLdEL32JNSmenL fv3flMMZsKVZpguujm9XjUU M8GDHtIRGIIMHfa92bFU2uj VNgT99vSvXdMN0uVXQrghAL cDRpyJE4LWQyYWXtHnbbAXI ccGFyZFxwYXJ9 CPT Code(s) (test code l5jhmVWuZWWqhZPvOFErKSw = 3357) goiFnIBQawJQxR9WsybdkZV lmII3nNB4tyHwisQFwhBMpF PEeQeXgv7hfh680wDRyo5yi KJAWkpoxfJk6iBbvP00rg3F 8XlfzI57fdHVtSTD9ZJBmFW XpvMPgJKUxUKO1CMVbdIRsL 3hwEBPlQZ4myoyvGUlfRAbi XUZgsVK0BQZudMNfR7QwFEP eZFxnXOCbokf1WtIlNm7bgL VyeTcyMFxwYXJkXHBsYWluX GZzMjAgODgzMDlccGFyIDg4 ZzR0TSObiwQ8TZNpHCxxRFP nEWhcJKU1PntnBACdMHhcUZ XmcCDiSYo3EcSrcAFskOYie Q== GROSS DESCRIPTION z1xllMFdBDHtkHQCCTYeDCN (test code = dRW8poAmrqOm7qYoiUXFfkr [id number]) L4iAAiOZytz3ngPLF1v7fzy oIALhszSMKfDV9dHXheTLDu ZS9dAqPmGKAbCoPkWYLbmQW cwbJsEuRlKJGybCFdiVT4CK ZvJS6pibpsZOsjPFkbMKVyr cM8WGXbwRDsN5FwUVTnCU3j ftyzOST2GKHVYxuzKs0vnHT ibHtcZjFcZmNoYXJzZXQwXG MolMufDTScYPb3xL8KExsgG UI9YACSLxcwQerptXjuq6Ql dCBcXHNnIFxcaWQgNTEwMDA rYJgvQzOLFoQrEdK8WEnsSq m0NuE4GKf5SJAXQPRxBUDjD ZKjNUK4XNa1VGSsXQ1aTFwg yMRxRBkuYzucZJhxH866UEc cBAAhQ2VcF1GhOMxuVcNaHH baZLTpXERtPQdcLYEoM6IIM NOcTLT7NuT0XuDtQJf6QWjd R6BMWMDqPAIxStd7WWw8PvC 8KQt9FGSMFv1cQgr0YVR6SD Z4STD4VEa9AIjrjGEeUDjqj 2GzXqQvVPIdPLvkrcM4ZBUo kdDbTNagnDogyC5qDfSeQmV HXwHFeR6asTHTn5FmJUScgt HKXygrCPViXT6PCDNoZXvnP FFvVvRahURpF7vtTBMvO13c g3NWv5MrQK1KNBi9alKfhlo aoN4eISHdwhHkn1BwVMdwaA ljWHNhMzAgDQpcZnMyMCBUa DJxt1HcW9jnKB7iiGVewsZq EGv5TWMymR3pKt4pmCBtkI0 hdYNlWKkpZVW9wNLiDAUpLC GjNRFgPJ01J9KwbiLfDOwhK EJ0NJNjCgRwiVI9mAivWwa9 cOUjEV3vGRLmAUAoKMTaz69 hiQA7jwSvDvBzHJHxtoatHI Xqf1Y6zM2cRM5rZBvdpTwot 1f6HUWnOTYtJxt6nKDbOFOl dKS8AUTah3M4AKS3qUIjXAR 2kHWsgmRzBE8hRYIhdKEtmg ozuLIfo5HyfN2xBXUdCMH8D RIgXTR0RPEyXTAllR7zJJFv RTDxrYCqxP9hedHfsgDngSD nO5NeDOCerxGsk8JrjLu9bX DqASFddKixJBa1OUSzXQGzE o1WEEBfoAYBZVR8PC6kXCko LMDzQ3GzB7SiwgN3ILVmsbW IVmrqPzguyCwtp9DtbBCjNQ NnIFxcaWQgNTEwMDIgXFxkY fZXEmYpDpA3XVsgOhf5FvS2 JDr0PMRGMdAhZxJdDyNjCFc 3TWMdEAy1FYt0JWiKLtN8AP y9HscpCsIpUES2IjMbAHe4J DIgXFxzcyAzIFxcZmwgXFxu J79ujCFePLbzZuQxXNmhdFg vEBLzINQ3YJ9TXYEhXjDuBj 2kEVp9GOYdsXCkHI0WFRNsq wEkSIzxjBcteP4aqWDoI6jn ZnMyMlxlcGljTmVzdERvYzE gDQpcbHRycGFyXGxpbjBccm jjCXxsHjRhNHHwwDOTb5HuM CANClxmczIwIFRoZSBzcGVj jR8bzyPttdIaAZYjyRUkUDH upiSke3BaTGyfjcRrDWBcbA VkIHdpdGggdGhlIHBhdGllb pLtueLiKZ6cVBBZDx7gKL9h XMYpyFQyrph1VPXgVHZoJim 9WCqgTYYoUBKiFj74NQfyLW 7mTZR1AgWxzFOvZPY1HMaoV KVyuZIbgELmzjWkyORsMA86 JkIAiQWuURQ5YWMhRHFzL5W glXYkSHCjCTMxeLCcAG57KX zbJLY5HRWpL94aFBSimqCZF dxmJsIsXGBnQ4efVoIvRAaf nVHeAU9YMSikMWVkeGM0rSA qmHLyHUUswOliKCJaJVp9Rq Avo1whQJVaWAYsuRQepAU0h gJlks80dVPvFDTrNBNrlJRt hvRctlQngHQbiy4sus8wfYq fzyN9gARmgHadw3S2FGmptY dpEjegnd79lyCcQRZ9PSBaB FRoZSBsaXZlciBpcyBzZXJp UKpmvGTsPWP9eL0mNYPlcJ6 yugU7SQNzKMFtl5TmtI1xsL KzsL1xL6WkUlClIHMkmKHna u25tsYieMhlGQTbS7mygAwa IHNwYWNlIHdpdGhpbiBzZWd dOM99GGbpySOhg1RacA4lQN XjXeM8TYTwBEL5XCZyWyOdb Q4bQGivnWufpiCoRPixFW73 GCKsVW1lxuU4KYedT2LsBS2 ofGkpFNUgRXv3JeCxurLsIL Yru49oxQJeiXQyeaUuExjcE SZgUBIxqOXiimnvOR66MWYp RDzeXWszJSL6RGQ8UJFpbAO ta4aekh8kHRhpeBeylkOaWR ahKB07QFTxYEJoNFGbOWluC FClC5HrAQ5fjBhlDKGsMBt0 NnRhbiwgaWxsLWRlZmluZWQ gbWFzcyBtZWFzdXJpbmcgMS 4yIHggMSBjbSBvbiBjdXQgc 4IlMvJcAO2mKQsicVoxcyDb XJebRA41DCSFYXA7sBWcFJA hamUuZLxuZXSwUBH0ArRdKB srDHK2XP3lnT8utvIuYOI9X bSyYKtgNYR7VN4eFNfjlZ6d INSrngMrONduc7kgqdXsTTW zuKBofaotHK44BRtxLG62SK EzWFWlxrZxdTUlt6GlRhUmG U0bYTOcQHDoUP5rtO1mdlfk uGi8PFPqmKAbCA2qqZozIPB vpnD5VCpti4rgrEbpNWVfJP d4GeVxziP2rCSmPXekxwWvB ZFmDujuNAY1QUEcMEToqOYl fTdpPORxl7F8eNSsXSMhwyu adpkoTcNvrWJoKbXuqW0tGY 53VZTkMYL2tHQuEUSxLqCud AXza7SddRCqMgTKxQ4rgYEk w2FeqjWkwqRqzp36GYzfEK6 6mAVrSPWdkX9soDmvCTumxL NvJkqlBZPoFAitpPNfSU2WX GhlIGdhbGxibGFkZGVyIHNl jp7nXATyulVdzzGgsnz3UKA kDUFqLgx6pFUgORYhbG5nrO dtVYSfogToUMThAHHpJF6rQ LZvhCL7mUGrHMXuhZQehF5h rINiu5YgOWwyLS4ooKKpryR mYJ54TuAMaEGgT3TvxTYqYO EmOMFtgWGmj9PfxpCfDUVbY HJldmVhbCBhYnVuZGFudCwg yzedR589hhbnW0ZxMY0rgWt zRJPcIWp7PpZmedIplQqoKB B8nNVkh7M9TNWerVU2gWpxE OLiGOCzpKNno1BbsWJuR6Ak YH6klXmxSIWgZEd8JvIglat ipaXjwjY9xOcwZR2yPHhmdG obsZEymADxx6XgJF4lPHhds 9pbapDzEmNNeWHtv9IkbTW5 yNyxh35wq3SfzTErHV3gGSM bRkLhaW1kIb9sM0Kwh5GhuT TyqA7gxvGjfnAsbA9duOdnE GdhbGxibGFkZGVyLiBSZXBy JKUgqzKncYm8YOUtMOO8lV3 ccwZzpdMwm0UohDq1rTDmEu zfVSExVJlecLJwQI2XP7Bmy BrqsuURy7GcNnrtWIWzYKlF AEogDjqiMHCjjXA3QYHpOIG 2BLEbpUvlafNkAMSscB1iDU BlbiBmYWNlXHBhciANCkIyX RR2UlBdXXfeWPM1GeOHcYB4 zFEek5VfP4Ldl8c5eLmxIUS wU09ywbEnVXvgONElYKfZJE xiP6VuLL6nkDowKIZqUKt5S sFzjjNfMYUos92ef8h8aEap HDLsL22nfaIxI7jdCUNkXVw VPzr7HRTpIKXbRjt8TprlFl NceuXiHP91PICjzyAui2Ckg JepasVbm0GqxQq9QWChhONf XK0SGnB2EFT1AaTqPVokTZO 2VpQMYBsiNJ91HDFteZHttZ 9uLCBlbnRpcmVseSwgYmlzZ HC4SBQhqMYbMX2DIELpTvSd IADgX6xzDWEbZJ4LXnSuPcH BIAmnAX14AJDWTPqrg6spfq hmJB16aEMvaFwWZtythDbxN yYyaPMlRcL3CBXtbWZzCOH4 CZ7rvEvaCPUtENw7KRhqIAK yR9FqL1RxTOfeMeJtVAcrPT JoJLPeXHvnMOQnA7OJXMBeJ KG2IaV8BuYgUGd7TWooX2UY VKXoPBEeEaa9NnHbZvZ8TMh 0QTPWVj9lHhy6WJR3JUcgUG P1SSd5QVnnnKUjYLhwx9BvH zDgZFCzVMaibbL7OZEekzOx u0TgRTCzKUCmT1ivRrHuYYM NClxmczIyIEMuIEdhbGxibG FkZGVyXHBhciANClxwYXJkI S9BLKNqTUifJQj4yfChTJHn FoWrOMFtK16yu4UEy4WbSH9 HIQg1vlEfjucfbA5tYXOmdb Ntf0CwRFjbwTbtZSJaTsYiF QrdGxOvLCSVgEZni3KyX4fz QI4ryMNnwcHnMJr9UZNdbC9 wTj1vmZScyT8zcDZeRFjbAI A7vSFrBDOnUFZdCFHyJO39T 2YancYqZOtsSZB6TDTeNxWj rZQ2rNyoJijglEfqiPFuWTT iNwOetxIwQ19wr9gcbLUji0 JcABGfggS1qY00w6v5CCqiT 2dgNVBiCRTlI60gXFzmcRkg yVPsHIZwRT2dGFR9zfreXvH 2OmLbkKEyWlHkkMTmSlFkX9 9wq6z6xOLqOEPkuVVjdEWwn ES7gFZzBNDmgH2mMIEbDRGp IAZko5OisXQzeVOsiZgwRLO 1WsOtAFqcKGS3ST2pj5k3iE YnjEz5mZRkU0BwVOTqXVCeP I7cDRlopM9eworrS1AxvzWi J7haTvNzrrXjqSvuAMGuh09 haNFdtbA6cLOmBMUbDLX0ix YiKxRuP21iQQKJiDGgg1Xrw 0HkTVxyPJCsy245hDBiqoJu d8KiZTX0lMLnDPVknoVkQUF dIVVxWC0dUJSxE7tgrZngRS P0A0JdrYosjZcdrl6bPVQvo rLnn3ScuDOdayBiNznrDX9i IFRoZSBnYWxsYmxhZGRlciB mciGzwGWaXKYebN7dxdL8KY QuJDAjyF5iPI50SKLkMDc5F VEbVAPmCqp9QgSyj26oU08s J8WmPYKsKPRdhR6eOUugWqq zfSjzOzG3cFXquXCgXY7oMC BObyBjYWxjdWxpIGFyZSBpZ YLyeQonsTSzDtHhQQjlQV84 A12hXDMvtvOaPNSkvIjaQDR sRGl7TjEab5jzNXHdEAY7nm FwUOY5mBN3QJCyb7i2oNZgq a29jVBeKSLzBLE5oLc5RMx0 UDSmYRIvQbj1zLDsVFAhuV3 su7eagRQbRNEod76iNaVcIG ekKXlihOsknSxhD3uuEGBcD CpcRKDbHiT6xrHpSsWwK86j MZDNKQRqHPGqyoGkmBs5TFW kIOS5zF8hwrIenmHbm7VguM t4wQEwIaazFBUtKSjem3MtC KEyiVYYo8ArAR3FYBZfcePN LlBkH7Fnq12iU28lQFsmNSU pKJeXJHpoH4rkiHxnACA4N0 JhiORxY6ijRUruoUCsUCvuO G2xIsJgQCoaXAZjNAyTKsvu U0KijWFpRFAfHNIxf9LciYS fsJUgOM1BVNWyxzBMHoafQX ZsEGOgcGBOi8WvJWQQTzNmT p0zCDQeZYCRYXNCPwwsiTur CcNcaQSjCxE6VYTkhBPzOTO 0VF9pnPezETOdM6XsG7Bnfz W6BWOjqfOYKqjlKWRxWI9MS GZzMjIgDQp9 MICROSCOPIC h7skiMGjNVMwxUCgFQFhSEl DESCRIPTION (test code cxcXcFTXahUHoZ7EmyphnYR = 3371) kfWL4zNK6dxTjgqYPlfQPmE KPnZmShx8red272rXNsd6gi HUMXzrxylNu2ePfnG94ky5P 0RtyiV74bzTIlJCN1EKMfXX LhlXQwUHLzLVD6HRTunHDcV 7cwBBJnCZ9jbivxWHjbPYpq RXBdoSY3IYTbxVTmZ5QnNHN fHBdwNTEoflc5UxPyEx2fwW VyeTcyMFxwYXJkXHBsYWluX EEdOdMjKGDyiA3xQSwnZRDb V44gdaZzERClVlzdQ9baKFH oetMgZGiqm9cpr9DqDKWwme 1fc4a9RBoovGlpQVYdpI7iW NLxWYEep48riVTmd7SdmG1l HQGxOfIxsXV9sGoefSYfmU7 3cyBzbWFsbCBjZWxsIGNoYW 1tKS6pRUIJVzKubY3dgR6dj WeqhR8otWQqbFYlzHCrkUBs biBoaWdobGlnaHRzIHRoZSB kPRTfdQvtwmp5CLQvi55nUF 2gNMDnpMVdYV9hBPJ8gmQkF WQ3fTQtXMTgtWJqoi5vBd8x DZicfL2hDMytpXGzQ7WcXGJ gf2KrbX5xqIJpdyRnZNRktm CwlR7aiMwgTImrk5pkdjMmA XHcg7M9GG2zFLWxtHfabYvn ylTdtFNjldMoQ9YngyLafX8 7pqH8jRxxs6YeLWYeuHJgDm VihRaglyMkSWK1BBYcUXRll C05MNSjsEqlsEO7TVWnCNVj fECwZaJgT8TwpyJsjOLbdFD ck3Z0pF6dBKdcD7lbG8HkIF JcHIuhbCyut6XfGwLdn1G9f GUuXHBhcn0= SPECIAL STUDIES (test r9fdqGGfMBZjt1rqIBJvtWC code = 3376) uZzEwMzNcZnRuYmpcdWMxIH vqujDrPDluq8MfV7OxCyOsN FxhbnNpXGRlZmxhbmcxMDMz OXA7ifDtYOChKUudZUWwLDj tMh7nmKAyhTfrAeRoRHVhm6 oxzeJVgrriyVj2z3boLIOmM pJ8hMTgWTevQ6hloaGrmLUr P5SctQCyiGy4t8tlMtFhSlH 6vKSmRGygX6ivewOfaSAqIJ OkJCl0bZ38HGSekA0ruZEkV OyrteXtJkO8RRkaGOXeAqP9 QPKzfCGjLZEgF2wySURnNKp hDNAnFQbfnMMsDGV0vNtok9 J6tGTrpRWaxPkjHsRsEiVqN eOKf3VlIMl1gDrtT9WxVVIz RmT2wSUvZFPvTDglGKFgIAM ebgK7jCblldVrw31rhGJeSW YwXGZzMjBcbGkwXHJpMCBDb 0UxnCmwWRW3bQg8jSjnFhjw XVE4Sqj2PJ0lxx03mgl6oAo tDQSdptteQlD0DEklTAOmte reEBo9SZzwVUGenPF0XRSmp HUvW9JsANJpMW0vcoi5IBV4 JVmqOZXcWaV1NHUpuJOgXIV ldPxzKZmxk010WMP0DwOwCC 6lT4Kte9Y5mY2apRZfUAFfq FCtPsKsNQOrzj5skFCiCOxi y2EtBDS3cpV6vNXrlOCfSQL hGA07Rkbdj1TbUiqfe3RbP3 1bpVT9BBxcn8yhVU9vHcS8u nXoUCdbj8aykR7mPwU7RXvp EY7tTE9bQSZxiE3qnteyJLL nYnJkcmhlYWRccGdicmRyZm 3meUwxMYV3WCokB1jteT5eK kC3MDghY9fjaR6nGYw7UOjx bAI9EEKlcZ2fTX3qfnalz9g bEWhcMKlwXCVsfsA0xuC4NC DgmAWfU4UvoL4fPWNkIX7kx plki1ebKJQ9SSqfZGHeTMY8 CiBaARAkx6Zboty2DzNnj3D vmPLiYAkwF49pa754YNOslv DjR4cubZEeeurpxIRwrdkuG AdntdJ3JYLxSSGkVRfaPNKu XGZzMjJcbGFuZzEwMzNcaGl jaFxmMVxkYmNoXGYxXGxvY2 sdHpGbK0YzORShYaTeDUxlS PlygZAksVLgeGW4xQ8kFX4q ZCIjcGBtL8QaILMbolLbmFB jSMG8aKUncVTrMJ6aLUzkxK Msp9kri1EjN0twgVsljCN7C X3aQJHpEODnKNgza3VjgO9w LlxwbGFpblxmMVxmczIyXGx skbqjAUGtUTjkX2dwRhHgNI IquQdgMGzue3CmSYPlFHMuV buezqXjVUm4joDnFUNywkpq DWXhyWwmiL2aNyCsCiZpVyv dWW4oWOJtC7sfvBJmTRQsME RiI5blEkRyeR3jqRngCTekT yHjQpAaFvCUc094gq3sFGHl cBEyfpNArWObgM9sWTvcFDz oIZgkaTFuFIdkn7cbWPBhe6 v7vOPiWLOdbgFsj2ecNPufl xJlLIHivRTkyHOxPGKbg04c KRokwRzdzWhrXEDjh0XmwVp jn3YjUdUjFOdvi3HgO96bzX JvbCBzbGlkZXMgcnVuIGFsb 47oz4laJVOlIbO7kQSnrTG1 bCBpmFJov4PegKhlXICsw7a iZPXtor3djnwkeYEwm3RcyQ 5pbmcuIEludGVybmFsIHBvc 2q7wGGuDUUpNDDiDCeroJe1 OLJwn874mn8jbxY3sCFbFMM 2YWlsYWJsZSBhcmUgZXZhbH VhdGVkXHBsYWluXGYxXGZzM jJcbGFuZzEwMzNcaGljaFxm DUmlWtOcJWTaMSdjC2mfNmC dT9VxKTPtTiNkxJYtW9adxM FyXHBsYWluXGYxXGZzMjJcb GFuZzEwMzNcaGljaFxmMVxk MpPvPSLrSAfnK6wgJbIzE1V yXGZzMjIgIFxwbGFpblxmMV xmczIyXGxhbmcxMDMzXGhpY 2lfAmMxEHJboNbkJRzay9Dk ZBVdBREjZeofqsLaGTa2jrQ oXHBhclxwbGFpblxmMVxmcz MdGGhtkkdpXUPeAFrmN8zoH oAxUUVddIokYQboy8BmOSFu GJPvQwziivQwKYiisRJxd2b qg7DrZ7pmvBngrWJ1BREmV8 mwwGUolSU9SEJ5fF1aWZqvz nUcQJIzv6EpISYtVKGhXkQ8 zM9nEKM5SpCQdAglOALiIYx uXGYxXGZzMjJcbGFuZzEwMz NcaGljaFxmMVxkYmNoXGYxX RsoT0ieKrQtH4OpYVWhBePv aGjcYCvxXMb0SxklyLNqwko mMVxmczIyXGxhbmcxMDMzXG ftL4ruQsOzHKJioOciSSnju 2NoXGYxXGNmMlxmczIyIHMg PIFlgOFriGXVSL12NRGiMID srOyvaI9vkOUJRSNffoE3f0 W3QXwtREIfRVx5KLusdsJmZ BSvmY7rKODzRN6eWHr3cpEo WZBuu3PhQI6mSHDxlSMgMQJ 4EMYnu6MaN8Olz9NtYVJnSG Zdtb2imiMcMbDQuXQdTQYgf c81CVPuWO4dD9vyLZKhTVUl rfAcrZHmc8AsWHOpsJS7kMC sTK4FSyNZn89qEMBkAEFYta AwTKNpkCywoGL7gnZ7vK2mO iBUaGUgRkRBIGhhcyBkZXRl yy8nufKsTTXuKQVhe6BkdFP jqORgbvFuE5Ftz2BkMOGhtw 74XUkrxHQzlt82CL1xZ0Pra 2KcxA8hYPpkYOJqg4FqzTZl eBIgJALef2DnS5cunfmhAHp jwBFdvJ2zTBVdPAy0ZADvo7 IfCVGrt6GkZxPfakBsFRPeJ QNeEVQvtG33PJD2pWwfwTel kkQlXJ6aCDAlftMjHTQsJJD wrP1dJKnbvlRkPCYhilQ6a7 M6XPquNTJhbuJpUjebXWC8s zNhfkS6fUKhV1opnjmzTEsf WDQaq6CvfO5bbRDFuKYjk8Z nkXWrnUZPcWBuPM3wmeAoQY 0oAUD2ZIvmWJOYEUFqCHalG PJtTCQ6NSbbEnojAII3zxRj ETOek2QbQZmyZ1fqU05zkFd jlGt4kYQfpDcozWShpYOlHO BwcvN1n5J1WTHtx0QqckuuR HBsYWluXGYyXGZzMjJcbGFu ZzEwMzNcaGljaFxmMlxkYmN tODFlALhuW0xjRvVfEdKpAg pqWHZ3gA== Gross assessment was [facility] performed at ([facility], code = 2777) Department of Pathology, [address] [place], [place] [address], Technical component [facility] was performed at ([facility], code = 2778) Department of Pathology, [address] [place] [address], Professional component [facility] was performed at ([facility], code = 2779) Department of Pathology, [address] [place] [address], [facility] [id number] 13:46:09Surgical Pathology Report Case: [id number] Authorizing Provider: Shamar Michaels Jr., MD Collected: 08/17/2022 08:27 PM Ordering Location: [facility] Received: 08/18/2022 09:03 AM PERIOPERATIVE SERVICES Pathologist: Denise Martin MD Specimens: A) - Lymph Node, periportal lymph node B) - Liver, NATIVELIVER WITH GALLBLADDER, FOR BIOBANKING C) - Gallbladder, DONOR GALLBLADDER A. PERIPORTAL LYMPH NODE, EXCISION- One single benign lymph node (0/1) B. LIVER WITH GALLBLADDER, EXPLANT, TOTAL HEPATECTOMY- Cirrhosis, micro and macronodular, stage IV fibrosis- High- grade dysplastic nodule, segment 5- No residual hepatocellular carcinoma identified, chemoembolization Bead s/p therapy were identified- Portaltriads with chemoembolization beads and mild bile ductular proliferation- Mild steatosis- Rare ballooned hepatocytes-Multiple bile duct cysts C GALLBLADDER, CHOLECYSTECTOMY diffuse papillary hyperplasia with chronic cholecystitis Signing Pathologist Direct Phone Line: [phone] signedby Denise Martin MD on 08/30/2022 at 1:46 PMSelected, most energy conservation representative slides reviewed at the GI consensus conference on August 30, [id number]. Lymph NodeThe specimen is received in formalin [...] liver is serially sectioned to reveal a well- circumscribed, mucinous filled cystic space within segment 8 measuring 1.2 x 0.8 x 0.7 cm. Within segment 3, minute,green-scanlon lesion is identified measuring 0.7 cm in greatest dimension. Within segment 5, there is a green-scanlon, ill-defined mass measuring 1.2 x 1 cm on cut surface. Within segment 4A, there is a green-t an to red-scanlon, ill-defined lesion measuring 0.7 x 0.5 cm, on cut surface. The remaining liver parenchyma is yellow-scanlon with innumerable, variably sized nodules ranging from 0.2 to 1.5 cm, with fibrous septae. Lymph nodes are not identified in the hilum.The gallbladder serosa is green-scanlon, smooth, unrem arkable. A cystic duct lymph nose is not present. The gallbladder is opened to reveal abundant, viscous, green-scanlon bile, without calculi. The mucosa is green- scanlon, velvety, and without masses or lesions.. The wall thickness is 0.1-0.2 cm. No gross lesions are in the gallbladder. Gas Reverser sectionsare submitted.Section Code:B1: Bile duct and vascular margins, en faceB2-4: Cystic space within segment 8B5: Green-scanlon lesion within segment 3B6-7: Gas Reverser sections of liverB 8-9: Segment 5 lesion, entirely, fjqobqthX79: Segment 4A lesion, entirelyC. GallbladderThe specimen is received in formalin labeled with the patient's name, date of , "gallbladder" and consists of a previously incised (1 cm) gallbladder measuring 7.1 x 2.5 x 1.4 cm with a patent cystic duct. The serosa is purple-tanwith multifocal areas of hemorrhage ranging in size from less than 0.1 to 0.3 cm. The serosa is smooth and otherwise unremarkable. A cystic duct lymph node is not identified. The gallbladder is opened to reveal abundant red-brown coagulated blood, filling the lumen. No calculi are identified. The mucosa is red-brown and trabeculated with innumerable white-scanlon, pinpoint lesions. The wall thickness is 0.2 to 0.4 cm. Gas Reverser sections are submitted.Section codeA1: Cystic duct margin (blue), en faceA2: Gallbladder wall A-C. ES, XCO9Zrxxlz in segment 5 (block 8 and 9) shows a grossly well-defined lesion measuring 1.2 cm which shows small cell change. CD34 immunohistochemical stain highlights the capillarization and thickened trabecular pattern focally. Glypican-3 stain [...] evaluated Immunohistochemistry technical testing was performed at [facility], Pathology Laboratory where it was developed and its performance characteristics were determined. It has not been cleared or approved by the U.S. Food and Drug Administration. The FDA has determined that such clearance or approval isnot necessary. The test is used for clinical purposes. It should not be regarded as investigational or for research. This laboratory is certified under the Clinical Laboratory Improvement Amendments of 1988 (CLIA-88) as qualified to perform high complexity clinical laboratory testing.[facility], Department of Pathology, [address] [place] [address], FevoclUniversity [facility], [facility] of [facility]ology, [address] [place] [address], Tel [phone] of California, [facility], Department of Pathology, [address] [place] [address], TJAEDNTARX [id number] 15:08:47 Test Item Value Reference Range Interpretation Comments TACROLIMUS BLOOD 11.3 ng/mL 10.0-20.0 Test perfor med on [employer]) (test code Architec t Immunoassay = 657) system with Chemiluminescen t Microparticle Immunoassay (CM IA) technology. Route [employer] Delivery Drivers Supervisor ID - ADMINCOMPREHENSIVE METABOLIC [id number] 11:24:27 Test Item Value Reference Range Interpretation Comments TOTAL PROTEIN 4.9 gm/dL 6.0-8.3 L (ZoopAKER) (test code = 770) ALBUMIN (BEAKER) 2.5 g/dL 3.5-5.0 L (test code = 1145) ALKALINE 202 U/L 40-150 H PHOSPHATASE (ZoopAKER) (test code = 346) BILIRUBIN TOTAL 1.2 [...] not appl icable for dialysis patien ts Route Sales Delivery Drivers Supervisor ID - MARCOBILIRUBIN, [id number] 11:17:40 Test Item Value Reference Range Interpretation Comments BILIRUBIN DIRECT (BEAKER) (test 0.7 mg/dL 0.1-0.5 H code = 706) Route [employer] Supervisor ID - [id number] 11:17:39 Test Item Value Reference Range Interpretation Comments MAGNESIUM (BEAKER) (test code = 1.1 mg/dL 1.6-2.6 L 627) Route [employer] Drivers Supervisor ID - [id number] 11:17:39 Test Item Value Reference Range Interpretation Comments PHOSPHORUS (BEAKER) (test code = 2.3 mg/dL 2.3-4.7 604) [employer] Supervisor ID - MARCOCBC W/PLT COUNT & AUTO [id number] 10:57:10 Test Item Value Reference Range Interpretation [...] PERCENT (BEAKER) (test code = 2801) TACROLIMUS [id number] 14:02:08 Test Item Value Reference Range Interpretation Comments TACROLIMUS BLOOD 15.9 ng/mL 10.0-20.0 Test perfor med on [employer] (BEAKER) (test code Architec t Immunoassay = 657) system with Chemiluminescen t Microparticle Immunoassay (CM IA) technology. Route Sales Delivery Drivers Supervisor ID - ADMINCBC W/PLT COUNT & AUTO [id number] 11:59:36 Test Item Value Reference Range Interpretation [...] CONCENTRATION Decreased (CELLAVISION)(BEAKER) (test code = 3438) Route [employer] Delivery Drivers Supervisor ID - [id number] ID - rian Trammell comments: Slide comments: COMPREHENSIVE METABOLIC [id number] 11:56:21 Test Item Value Reference Range Interpretation [...] not appl icable for dialysis patien ts Route Sales Delivery Drivers Supervisor ID - MARIOBILIRUBIN, [id number] 11:52:28 Test Item Value Reference Range Interpretation Comments BILIRUBIN DIRECT (BEAKER) (test 0.7 mg/dL 0.1-0.5 H code = 706) Route [employer] Drivers Supervisor ID - [id number] 11:52:23 Test Item Value Reference Range Interpretation Comments MAGNESIUM (BEAKER) (test code = 1.3 mg/dL 1.6-2.6 L 627) Route [employer] Drivers Supervisor ID - [id number] 11:52:23 Test Item Value Reference Range Interpretation Comments PHOSPHORUS (BEAKER) (test code = 2.2 mg/dL 2.3-4.7 L 604) Route [employer] Drivers Supervisor ID - RODORAD, CHEST, 1 VIEW, NON [id number] 13:54:00REFERRING MD: CHERELLE SALVDAOR Reason for exam:->S/p liver transplantShould this be performed at the bedside?->Yes [facility] 1955 Sex: MFINAL REPORT CLINICAL HISTORY: S/p liver transplant TECHNIQUE: 1 view of the chest. COMPARISON: 08/22/2022 IMPRESSION: There are no focal infiltrates or effusions. The cardiomediastinal silhouette is magnified by technique. The osseous structures appear intact. Signed: Marycruz Barillas MDR[facility]ort Verified Date/Time: 08/23/2022 13:54:19 Reading Location: [address] Reading Room OLIMUS [id number] 08:59:02 Test Item Value Reference Range Interpretation Comments TACROLIMUS BLOOD 10.5 ng/mL 10.0-20.0 Test perfor med on [employer] (BEAKER) (test code Architec t Immunoassay = 657) system with Chemiluminescen t Microparticle Immunoassay (CM IA) technology. Route [employer] Drivers Supervisor ID - AAHAMIDPOCT-GLUCOSE [id number] 08:36:24 Test Item Value Reference Range Interpretation Comments POC-GLUCOSE METER 89 mg/dL 70-110 : [facility] (BEAKER) (test code = NICOLE Arita [facility], 1538) [address]: Route Sales Delivery Drivers Supervisor/Techni zaire ID = [id number] for HIDA LGO, AGLAE Anaerobic [id number] 08:30:35 Test Item Value Reference Range Interpretation Comments Result (test code = No anaerobes isolated 6463-4) [facility] [id number] 08:30:35 Test Item Value Reference Range Interpretation Comments CULTURE (BEAKER) (test No anaerobes isolated code = 1095) BASIC METABOLIC [id number] 06:57:36 Test Item Value Reference Range Interpretation [...] not appl icable for dialysis patien ts Route Sales Delivery Drivers Supervisor ID - [id number] 06:54:55 Test Item Value Reference Range Interpretation Comments MAGNESIUM (BEAKER) (test code = 1.5 mg/dL 1.6-2.6 L 627) Route [employer] D[employer] Supervisor ID - [id number] 06:54:55 Test Item Value Reference Range Interpretation Comments PHOSPHORUS (BEAKER) (test code = 2.2 mg/dL 2.3-4.7 L 604) Route [employer] Supervisor ID - ADMINHEPATIC FUNCTION [id number] 06:54:55 Test Item Value Reference Range Interpretation [...] code = 90 U/L 6-55 H 347) Route [employer] Drivers Supervisor ID - ADMINPROTHROMBIN TIME/[id number] 06:43:12 Test Item Value Reference Range Interpretation [...] mechanical heart valves.CBC W/PLT COUNT & AUTO [id number] 06:37:32 Test Item Value Reference Range Interpretation [...] IMMATURE GRANULOCYTES-RELATIVE 5.00 % 0.00-1.00 H PERCENT (AKER) (test code = 2801) POCT-GLUCOSE [id number] 22:36:27 Test Item Value Reference Range Interpretation Comments POC-GLUCOSE METER 220 mg/dL 70-110 H : TESTED A T [facility] 6720 ([facility]) (test code = [facility], 153) [address]: Route Sales Delivery Drivers Supervisor/Techni zaire ID = [id number] for Kinza Santos POCT-GLUCOSE [id number] 16:46:15 Test Item Value Reference Range Interpretation Comments POC-GLUCOSE METER 192 mg/dL 70-110 H : TESTED A T [facility] 6720 ([facility]) (test code = [facility], 153) [address]: Route Sales Delivery Drivers Supervisor/Techni zaire ID = [id number] for SALVATORE LOWRY POCT-GLUCOSE [id number] 13:13:46 Test Item Value Reference Range Interpretation Comments POC-GLUCOSE METER 227 mg/dL 70-110 H : TESTED A T [facility] 6720 ([facility]) (test code = [facility], 1538) [address]: Route Sales Delivery Drivers Supervisor/Techni zaire ID = [id number] for WENDY WINSLOW POCT-GLUCOSE [id number] 09:33:39 Test Item Value Reference Range Interpretation Comments POC-GLUCOSE METER 114 mg/dL 70-110 H : TESTED A T [facility] 6720 ([facility]) (test code = [facility], 1538) 167[address]: Route Sales Delivery Drivers Supervisor/Techni zaire ID = [id number] for RAMYA LONDONO, WENDY TACROLIMUS [id number] 09:25:04 Test Item Value Reference Range Interpretation Comments TACROLIMUS BLOOD 11.3 ng/mL 10.0-20.0 Test perfor med on [employer] ([facility]) (test code Architec t Immunoassay = 657) system with Chemiluminescen t Microparticle Immunoassay (CM IA) technology. Route Sales Delivery Drivers Supervisor ID - DHARA, CHEST, 1 VIEW, NON [id number] 06:54:00REFERRING MD: CHERELLE SALVADOR Reason for exam:->S/p liver transplantShould this be performed at the bedside?->Yes [facility] 1955 Sex: MFINAL REPORT CLINICAL HISTORY: S/p liver transplant TECHNIQUE: 1 view of the chest. COMPARISON: 08/21/2022 IMPRESSION: Bilateral perihilar bandlike opacities are unchanged. No infiltrates or significant effusions. The cardiomediastinal silhouette is magnified by technique. Signed: Marycruz Barillas [facility] Verified Date/Time: 08/22/2022 06:54:11 Electronically signed by: MARYCRUZ BARILLAS M.D.on 08/22/2022 06:54 AMBASIC METABOLIC [id number] 06:32:37 Test Item Value Reference Range Interpretation [...] not appl icable for dialysis patien ts Route Sales Delivery Drivers Supervisor ID - BETTE GHEPATIC FUNCTION [id number] 06:28:53 Test Item Value Reference Range Interpretation [...] code = 118 U/L 6-55 H 347) Route Sales Delivery Drivers Supervisor ID - BETTE [id number] 06:28:52 Test Item Value Reference Range Interpretation Comments MAGNESIUM (BEAKER) (test code = 1.8 mg/dL 1.6-2.6 627) Route [employer] Delivery Drivers Supervisor ID - BETTE [id number] 06:28:52 Test Item Value Reference Range Interpretation Comments PHOSPHORUS (BEAKER) (test code = 2.8 mg/dL 2.3-4.7 604) Route [employer] Delivery Drivers Supervisor ID - BETTE GTSH/FREE T4 IF [id number] 06:11:21 Test Item Value Reference Range Interpretation Comments THYROID STIMULATING HORMONE 0.939 uIU/mL 0.350-4.940 (BEAKER) (test code = 772) Route [employer] Delivery Drivers Supervisor ID - DBIMMUNOGLOBULIN G (IGG)2022-08-22 05:50:37 Test Item Value Reference Range Interpretation Comments IMMUNOGLOBULIN G (IGG) (BEAKER) 549 mg/dL 540-1822 (test code = 427) Route [employer] Delivery Drivers Supervisor ID - [id number] 05:50:36 Test Item Value Reference Range Interpretation Comments PREALBUMIN (BEAKER) (test code = 12 mg/dL 14-45 L 586) Route Sales Delivery Drivers Supervisor ID - DBPROTHROMBIN TIME/[id number] 05:40:46 Test Item Value Reference Range Interpretation [...] mechanical heart valves.CBC W/PLT COUNT & AUTO [id number] 05:33:33 Test Item Value Reference Range Interpretation [...] (BEAKER) (test code = 2801) Prepare Leuko-Red [id number] 23:54:00 Test Item Value Reference Range Interpretation Comments CROSSMATCH (test code = 2264) COMPATIBLE Unit ABO (test code = O Pos 6283501) UNIT NUMBER (test code = [id number] 934-0) Status (test code = 5501038) TX_TIMEINCHART Blood Bank Product (test code RED BLOOD CELLS = 2263) PRODUCT CODE (test code = C5222A99 933-2) [facility] [id number] 21:12:15 Test Item Value Reference Range Interpretation Comments POC-GLUCOSE METER 181 mg/dL 70-110 H : TESTED A T [facility] 6720 (BEAKER) (test code = NICOLE [place], 1538) [address]: Route Sales Delivery Drivers Supervisor/Techni zaire ID = [id number] for Teo Velez POCT-GLUCOSE [id number] 17:28:30 Test Item Value Reference Range Interpretation Comments POC-GLUCOSE METER 166 mg/dL 70-110 H : TESTED A T [facility] 6720 ([facility]) (test code = [facility], 153) 85052: Route Sales Delivery Drivers Supervisor/Techni zaire ID = [id number] for MITALI DOW DD POCT-GLUCOSE [id number] 12:55:32 Test Item Value Reference Range Interpretation Comments POC-GLUCOSE METER 137 mg/dL 70-110 H : TESTED A T [facility] 6720 ([facility]) (test code = [facility], 153) 69161: Route Sales Delivery Drivers Supervisor/Techni zaire ID = [id number] for MITALI DOW DD TACROLIMUS [id number] 09:51:50 Test Item Value Reference Range Interpretation Comments TACROLIMUS BLOOD 8.3 ng/mL 10.0-20.0 L Test perfor med on [employer] ([facility]) (test code Architec t Immunoassay = 657) system with Chemiluminescen t Microparticle I mmunoassay (CMIA) technolo gy. Route Sales Delivery Drivers Supervisor ID - AAHAMIDPOCT-GLUCOSE [id number] 09:18:36 Test Item Value Reference Range Interpretation Comments POC-GLUCOSE METER 181 mg/dL 70-110 H : TESTED A T [facility] 6720 ([facility]) (test code = [facility], 153) 23678: Route Sales Delivery Drivers Supervisor/Techni zaire ID = [id number] for MITALI DOW DD VANCOMYCIN LEVEL, [id number] 08:47:17 Test Item Value Reference Range Interpretation Comments VANCOMYCIN TROUGH ([facility]) (test 3.5 ug/mL 10.0-20.0 L code = 522) Route Sales Delivery Drivers Supervisor ID - BETTE GPOCT-GLUCOSE [id number] 06:29:01 Test Item Value Reference Range Interpretation Comments POC-GLUCOSE METER 148 mg/dL 70-110 H : TESTED A T [facility] 6720 ([facility]) (test code = [facility], 153) 43282: Route Sales Delivery Drivers Supervisor/Techni zaire ID = [id number] for Duarte Hernandez RAD, CHEST, 1 VIEW, NON [id number] 05:34:00REFERRING MD: CHERELLE SALVADOR Reason for exam:->S/p liver transplantShould this be performed at the bedside?->Yes[facility] : 1955 Sex: MFINAL REPORT CLINICAL INDICATION: S/p liver transplant Comparison: 08/21/2019 no The cardiomediastinal contours are stable. The lung volumes are low. Central pulmonary vascular congestion and bilateral parenchymal opacities are unchanged. There is no pneumothorax. Signed: Fernando [facility]port Verified Date/Time: 08/21/2022 05:34:40 CALCIUM, [id number] 04:20:05 Test Item Value Reference Range Interpretation Comments CALCIUM IONIZED (BEAKER) (test 1.06 mmol/L 1.12-1.27 L code = 698) PH, BLOOD (BEAKER) (test code = 7.45 1810) Blood gas, [id number] 04:20:00 Test Item Value Reference Range Interpretation Comments pH, Arterial (test code 7.46 7.35-7.45 H = 2744-1) pCO2, Arterial (test 37 See_Comment [Autom ated message] code = 2019-8) The system [employer] generated this result transmit lisa reference range : 35 - 45 mm Hg. The reference range was not used to interpret this result as normal/abnormal . pO2, Arterial (test 94 See_Comment H [Automa lisa message] code = 2703-7) The system [employer] generated this result transmit lisa reference range : 80 - 90 mm Hg. The reference range was not used to interpret this result as normal/abnormal . O2 Sat, Arterial (test 97.6 % 96.0-97.0 H code = 2708-6) HCO3, Arterial (test 25 mmol/L -29 code = 1960-4) Base Excess, Arterial 1.5 mmol/L -2.0-3.0 (test code = 1925-7) Patient Temperature 36.7 (test code = 8310-5) FIO2 (test code = 1819) 21 Lab Interpretation Abnormal (test code = 37834-4) [facility], [id number] 04:20:00 Test Item Value Reference Range Interpretation Comments PH ARTERIAL (BEAKER) (test code = 7.46 7.35-7.45 H 383) PCO2 ARTERIAL (BEAKER) (test code 37 mm Hg 35-45 = 384) PO2 ARTERIAL (BEAKER) (test code = 94 mm Hg 80-90 H 385) O2 SATURATION ARTERIAL (BEAKER) 97.6 % 96.0-97.0 H (test code = 386) HCO3 ARTERIAL (BEAKER) (test code 25 mmol/L = 388) BASE EXCESS ARTERIAL (BEAKER) 1.5 mmol/L -2.0-3.0 (test code = 387) PATIENT TEMPERATURE (BEAKER) (test 36.7 code = 1818) FIO2 (BEAKER) (test code = 1819) 21.0 BASIC METABOLIC [id number] 04:13:56 Test Item Value Reference Range Interpretation [...] not appl icable for dialysis patien ts Route Sales Delivery Drivers Supervisor ID - BETTE [id number] 04:11:27 Test Item Value Reference Range Interpretation Comments PHOSPHORUS (BEAKER) 2.8 mg/dL 2.3-4.7 Specimen slightly (test code = 604) hemolyzed Route Sales Delivery Drivers Supervisor ID - BETTE GHEPATIC FUNCTION [id number] 04:11:27 Test Item Value Reference Range Interpretation [...] Specimen slightly (test code = 347) hemolyzed Route Sales Delivery Drivers Supervisor ID - BETTE [id number] 04:11:26 Test Item Value Reference Range Interpretation Comments MAGNESIUM (BEAKER) 1.6 mg/dL 1.6-2.6 Specimen slightly (test code = 627) hemolyzed Route Sales Delivery Drivers Supervisor ID - BETTE GPROTHROMBIN TIME/[id number] 04:02:03 Test Item Value Reference Range Interpretation Comments PROTIME (BEAKER) (test code = 14.7 seconds 11.9-14.2 H 759) INR (BEAKER) (test code = 370) 1.23 <=5.90 RECOMMENDED COUMADIN/WARFARIN INR THERAPY RANGESSTANDARD DOSE: 2.0 - 3.0 Includes: PROPHYLAXIS for venous thrombosis, systemic embolization; TREATMENT for venous thrombosis and/or pulmonary embolus.HIGH RISK: Target INR is 2.5-3.5 for patients with mechanical heart valves.Lactic Acid, [id number] 03:59:46 Test Item Value Reference Range Interpretation Comments Lactate, Art (test 0.7 mmol/L 0.5-2.2 Specimen code = 2874) slightly hemolyzed MADALYN (test code = MADALYN) Route Sales Delivery Drivers Supervisor ID - ADMIN Lab Interpretation Normal (test code = 13655-2) [facility] HospitalLACTIC ACID, [id number] 03:59:46 Test Item Value Reference Range Interpretation Comments LACTATE BLOOD 0.7 mmol/L 0.5-2.2 Specimen sligh tly ARTERIAL (2) (BEAKER) hemoly zed (test code = 2874) Route Sales Delivery Drivers Supervisor ID - ADMINCBC W/PLT COUNT & AUTO [id number] 03:58:54 Test Item Value Reference Range Interpretation [...] PERCENT (BEAKER) (test code = 2801) POCT-GLUCOSE [id number] 23:40:23 Test Item Value Reference Range Interpretation Comments POC-GLUCOSE METER 147 mg/dL 70-110 H : TESTED A T [facility] 6720 (BEAKER) (test code = NICOLE Arita [facility], 1538) 42497: Route Sales Delivery Drivers Supervisor/Techni zaire ID = [id number] for Duarte Hernandez CBC W/PLT COUNT & AUTO [id number] 22:17:37 Test Item Value Reference Range Interpretation [...] PERCENT (BEAKER) (test code = 2801) POCT-GLUCOSE [id number] 17:46:22 Test Item Value Reference Range Interpretation Comments POC-GLUCOSE METER 264 mg/dL 70-110 H : TESTED A T [facility] 6720 (BEAKER) (test code = ABELCO Juan [place], 1538) [address]: Route Sales Delivery Drivers Supervisor/Techni zaire ID = [id number] for Kimber Reyes POCT-GLUCOSE [id number] 15:50:26 Test Item Value Reference Range Interpretation Comments POC-GLUCOSE METER 258 mg/dL 70-110 H : TESTED A T [facility] 6720 (BEAKER) (test code = ABELCO Juan J [facility], 1538) 42529: Route Sales Delivery Drivers Supervisor/Techni zaire ID = [id number] for Kimber Reyes CBC W/PLT COUNT & AUTO [id number] 14:39:22 Test Item Value Reference Range Interpretation [...] = 2801) Body Fluid Culture + Gram [id number] 12:51:18 Test Item Value Reference Range Interpretation Comments Result (test code = 6463-4) No growth Lab Interpretation (test code = Normal 21607-2) [facility] HospitalBODY FLUID CULTURE + GRAM [id number] 12:51:18 Test Item Value Reference Range Interpretation Comments CULTURE (BEAKER) (test code = 1095) No growth POCT-GLUCOSE [id number] 11:57:34 Test Item Value Reference Range Interpretation Comments POC-GLUCOSE METER 237 mg/dL 70-110 H : [facility] (BEAKER) (test code = NICOLE Arita [facility], 1538) 22080: Route Sales Delivery Drivers Supervisor/Techni zaire ID = [id number] for Kimber Reyes HEMOGLOBIN [id number] 10:50:28 Test Item Value Reference Range Interpretation Comments HEMOGLOBIN A1C 6.1 % See_Comment H [Automated m essage] ELECTROPHORESIS (BEAKER) The system which (test code = 3811) generated this result transmitted ref erence range: <=5.6%. The reference range was not used to int erpret this result as normal/abnormal . "The A1c is measured using a NGSP-certified method. HbA1c value equal to or greater than 6.5% as thediagnosis cutoff for diabetes. An HbA1c value of 5.7- 6.4% indicates increased risk for diabetes (prediabetes)."Route Sales Delivery Drivers Supervisor ID - ADM TACROLIMUS [id number] 09:27:40 Test Item Value Reference Range Interpretation Comments TACROLIMUS BLOOD 5.0 ng/mL 10.0-20.0 L Test perfor med on [place] (BEAKER) (test code Architec t Immunoassay = 657) system with Chemiluminescen t Microparticle I mmunoassay (CMIA) technolo gy. Route Sales Delivery Drivers Supervisor ID - DHARA, CHEST, 1 VIEW, NON [id number] 08:23:00REFERRING MD: CHERELLE SALVADOR Reason for exam:->S/p liver transplantShould this be performed at the bedside?->Yes [facility] 1955 Sex: [...] Ulrich MDReport Verified Date/Time: 08/20/2022 08:23:35 POCT-GLUCOSE [id number] 05:46:08 Test Item Value Reference Range Interpretation Comments POC-GLUCOSE METER 232 mg/dL 70-110 H : TESTED A T [facility] ([facility]) (test code = [place], 1538) [address]: Route Sales Delivery Drivers Supervisor/Techni zaire ID = [id number] for Duarte Hernandez HEPATIC FUNCTION [id number] 05:27:13 Test Item Value Reference Range Interpretation [...] code = 188 U/L 6-55 H 347) Route Sales Delivery Drivers Supervisor ID - MMOperator ID - MMBASIC METABOLIC [id number] 03:24:58 Test Item Value Reference Range Interpretation [...] not appl icable for dialysis patien ts Route Sales Delivery Drivers Supervisor ID - [id number] 03:08:11 Test Item Value Reference Range Interpretation Comments PHOSPHORUS (BEAKER) (test code = 2.6 mg/dL 2.3-4.7 604) Route Sales Delivery Drivers Supervisor ID - [id number] 03:08:10 Test Item Value Reference Range Interpretation Comments MAGNESIUM (BEAKER) (test code = 1.8 mg/dL 1.6-2.6 627) Route Sales Delivery Drivers Supervisor ID - [id number] 03:00:48 Test Item Value Reference Range Interpretation Comments AMMONIA (BEAKER) (test code = 348) 41 mol/L 18-72 Route Sales Delivery Drivers Supervisor ID - MMLACTIC ACID, [id number] 02:58:29 Test Item Value Reference Range Interpretation Comments LACTATE BLOOD ARTERIAL (2) 0.8 mmol/L 0.5-2.2 (BEAKER) (test code = 2874) Route Sales Delivery Drivers Supervisor ID - MMPROTHROMBIN TIME/[id number] 02:54:11 Test Item Value Reference Range Interpretation [...] mechanical heart valves.CBC W/PLT COUNT & AUTO [id number] 02:46:42 Test Item Value Reference Range Interpretation [...] PERCENT (BEAKER) (test code = 2801) CALCIUM, [id number] 02:46:27 Test Item Value Reference Range Interpretation Comments CALCIUM IONIZED (BEAKER) (test 1.05 mmol/L 1.12-1.27 L code = 698) PH, BLOOD (BEAKER) (test code = 7.44 1810) BLOOD GAS, [id number] 02:44:05 Test Item Value Reference Range Interpretation [...] (BEAKER) (test code = 1819) 21.0 POCT-GLUCOSE [id number] 00:22:30 Test Item Value Reference Range Interpretation Comments POC-GLUCOSE METER 278 mg/dL 70-110 H : TESTED A T [place] [address] ([facility]) (test code = NICOLE Arita [facility], 153) [address]: Route Sales Delivery Drivers Supervisor/Techni zaire ID = [id number] for Elsie barretosumeetDuarte POCT-GLUCOSE [id number] 18:55:33 Test Item Value Reference Range Interpretation Comments POC-GLUCOSE METER 293 mg/dL 70-110 H : Notified RN/MD: [facility] (test code AT [place] [address] [place] = 1538) [facility] 30: Route Sales Delivery Drivers Supervisor/Techni zaire ID = [id number] for Manuelamikaela trenton ([facility] Traveler)[place] POCT-GLUCOSE [id number] 16:19:15 Test Item Value Reference Range Interpretation Comments POC-GLUCOSE METER 313 mg/dL 70-110 H : Not[facility] RN[facility]MD: [facility] (test code AT [place] [address] [place] = 1538) [facility], [facility] 30: Route Sales Delivery Drivers Supervisor/Techni zaire ID = [id number] for Manuelamikaela phippsni ([facility] Traveler)[place] CBC W/PLT COUNT & AUTO [id number] 12:06:09 Test Item Value Reference Range Interpretation [...] H GRANULOCYTES-RELATIVE PERCENT (BEAKER) (test code = 280) POCT-GLUCOSE [id number] 12:03:22 Test Item Value Reference Range Interpretation Comments POC-GLUCOSE METER 341 mg/dL 70-110 H : Notified RN/MD: TESTED ([facility]) (test code AT [facility] [address] = 1538) [place], [address]: Route Sales Delivery Drivers Supervisor/Techni zaire ID = [id number] for Milagros chowdhury ([facility] Traveler)[place] TACROLIMUS [id number] 08:35:56 Test Item Value Reference Range Interpretation Comments TACROLIMUS BLOOD 2.7 ng/mL 10.0-20.0 L Test perfor med on [place] ([facility]) (test code Archite t Immunoassay = 657) system with Chemiluminescen t Microparticle I mmunoassay (CMIA) technolo gy. Route Sales Delivery Drivers Supervisor ID - [id number] ID - [id number] ID - AAHAMLEOPOLDORAD, CHEST, 1 VIEW, NON [id number] 07:30:00REFERRING MD: CHERELLE SALVADOR Reason for exam:->S/p liver transplantShould this be performed at the bedside?->Yes [facility] 1955 Sex: [...] pulmonary edema, or pneumonitis/fibrotic changes. Signed: Bharathi Ram MDReport Verified Date/Time: 08/19/2022 07:30:12 Reading Location: [address] Reading Room HEPATITIS C PCR, [id number] 06:43:54 Test Item Value Reference Range Interpretation Comments HCV RESULT COMPONENT HCV RNA not detected HCV RNA not detected (BEAKER) (test code = 2699) POCT-GLUCOSE [id number] 06:40:21 Test Item Value Reference Range Interpretation Comments POC-GLUCOSE METER 173 mg/dL 70-110 H : TESTED A T [facility] 67[address] (BEAKER) (test code = [place], 1538) [address]: Route Sales Delivery Drivers Supervisor/Techni zaire ID = [id number] for La wrence (contract), Margot ly PROTHROMBIN [id number] 05:29:54 Test Item Value Reference Range Interpretation Comments PROTIME (BEAKER) (test code = 15.8 seconds 11.9-14.2 H 759) INR (BEAKER) (test code = 370) 1.34 <=5.90 RECOMMENDED COUMADIN/WARFARIN INR THERAPY RANGESSTANDARD DOSE: 2.0 - 3.0 Includes: PROPHYLAXIS for venous thrombosis, systemic embolization; TREATMENT for venous thrombosis and/or pulmonary embolus.HIGH RISK: Target INR is 2.5-3.5 for patients with mechanical heart valves.BASIC METABOLIC [id number] 05:17:07 Test Item Value Reference Range Interpretation [...] not appl icable for dialysis patien ts Route Sales Delivery Drivers Supervisor ID - [id number] 05:09:31 Test Item Value Reference Range Interpretation Comments PHOSPHORUS (BEAKER) (test code = 4.1 mg/dL 2.3-4.7 604) Route Sales Delivery Drivers Supervisor ID - ADMINHEPATIC FUNCTION [id number] 05:09:31 Test Item Value Reference Range Interpretation [...] code = 228 U/L 6-55 H 347) Route Sales Delivery Drivers Supervisor ID - [id number] 05:09:30 Test Item Value Reference Range Interpretation Comments MAGNESIUM (BEAKER) (test code = 1.3 mg/dL 1.6-2.6 L 627) Route Sales Delivery Drivers Supervisor ID - ADMINLACTIC ACID, [id number] 04:52:01 Test Item Value Reference Range Interpretation Comments LACTATE BLOOD ARTERIAL (2) 0.4 mmol/L 0.5-2.2 L (BEAKER) (test code = 2874) Route Sales Delivery Drivers Supervisor ID - BETTE RUBYLCIUM, [id number] 04:47:20 Test Item Value Reference Range Interpretation Comments CALCIUM IONIZED (BEAKER) (test 1.02 mmol/L 1.12-1.27 L code = 698) PH, BLOOD (BEAKER) (test code = 7.50 1810) BLOOD GAS, [id number] 04:46:27 Test Item Value Reference Range Interpretation [...] 1819) 21.0 CBC W/PLT COUNT & AUTO [id number] 04:42:40 Test Item Value Reference Range Interpretation [...] PERCENT (BEAKER) (test code = 2801) POCT-GLUCOSE [id number] 01:47:08 Test Item Value Reference Range Interpretation Comments POC-GLUCOSE METER 162 mg/dL 70-110 H : TESTED A T [facility] 67[address] (BEAKER) (test code = [place], 1538) [address]: Route Sales Delivery Drivers Supervisor/Techni zaire ID = [id number] for Glo james (contract)Margot ly Tim [id number] 23:54:00 Test Item Value Reference Range Interpretation Comments CROSSMATCH (test code = 2264) COMPATIBLE Unit ABO (test code = O Pos 8945735) UNIT NUMBER (test code = [id number] 934-0) Status (test code = 8855415) [place]_TIMEINCHART Blood Bank Product (test code RED BLOOD CELLS = 2263) PRODUCT CODE (test code = U5973Z49 933-2) [facility] [id number] 23:54:00 Test Item Value Reference Range Interpretation Comments Unit ABO (test code = O Neg 7076710) UNIT NUMBER (test code = [id number] 934-0) Status (test code = 2635415) TX_TIMEINCHART Blood Bank Product (test code CRYOPRECIPITATE = 2263) PRODUCT CODE (test code = U6115E40 933-2) [facility] [id number] 23:54:00 Test Item Value Reference Range Interpretation Comments Unit ABO (test code = 1945545) O Pos UNIT NUMBER (test code = [id number] 934-0) Status (test code = 3460670) TX_TIMEINCHART Blood Bank Product (test code FFP = 2263) PRODUCT CODE (test code = G0520J58 933-2) [facility] [id number] 23:54:00 Test Item Value Reference Range Interpretation Comments Unit ABO (test code = 4516146) A Pos UNIT NUMBER (test code = [id number] 934-0) Status (test code = 0581006) TX_TIMEINCHART Blood Bank Product (test code PLATELETS = 2263) PRODUCT CODE (test code = O0676Z91 933-2) [facility] [id number] 21:24:28 Test Item Value Reference Range Interpretation [...] not appl icable for dialysis patien ts Route Sales Delivery Drivers Supervisor ID - ADMINBLOOD GAS, [id number] 21:03:12 Test Item Value Reference Range Interpretation [...] (BEAKER) (test code = 1819) 100.0 POCT-GLUCOSE [id number] 19:29:05 Test Item Value Reference Range Interpretation Comments POC-GLUCOSE METER 124 mg/dL 70-110 H : TESTED A Susan [facility] [address] ([place]) (test code = [place], 1538) [address]: Route Sales Delivery Drivers Supervisor/Techni zaire ID = [id number] for La jaidenence (contract), Margot ly U/S, ABDOMINAL, WITH [id number] 18:41:00REFERRING MD: CHERELLE SALVADOR Reason for exam:->S/p olt assess vessels [facility] : 1955 Sex: [...] cm, may represent hematoma. Signed: Javier Griffin MDReport Verified Date/Time: 08/18/2022 18:41:32 U/S, DUPLEX, [id number] 18:41:00REFERRING MD: CHERELLE SALVADOR Reason for exam:->S/P OLT [facility] : 1955 Sex: [...] cm, may represent hematoma. Signed: Javier Griffin Verified Date/Time: 08/18/2022 18:41:32 POCT-GLUCOSE [id number] 18:40:10 Test Item Value Reference Range Interpretation Comments POC-GLUCOSE METER 89 mg/dL 70-110 : TESTED A T [facility] 6720 (BEAKER) (test code = [facility], 1538) [address]: Route Sales Delivery Drivers Supervisor/Techni zaire ID = [id number] for Hove r-Brendan, Rafa POCT-GLUCOSE [id number] 18:11:16 Test Item Value Reference Range Interpretation Comments POC-GLUCOSE METER 84 mg/dL 70-110 : TESTED A T [facility] 6720 (BEAKER) (test code = [facility], 1538) [address]: Route Sales Delivery Drivers Supervisor/Techni zaire ID = [id number] for Hove r-Brendan, Rafa POCT-GLUCOSE [id number] 14:17:22 Test Item Value Reference Range Interpretation Comments POC-GLUCOSE METER 145 mg/dL 70-110 H : TESTED A T [facility] 6720 (BEAKER) (test code = [facility], 1538) [address]: Route Sales Delivery Drivers Supervisor/Techni zaire ID = [id number] for Hover-Brendan, X avier POCT-GLUCOSE [id number] 12:45:42 Test Item Value Reference Range Interpretation Comments POC-GLUCOSE METER 158 mg/dL 70-110 H : TESTED A T [facility] 6720 (BEAKER) (test code = [facility], 1538) [address]: Route Sales Delivery Drivers Supervisor/Techni zaire ID = [id number] for Hover-Brendan, X avier POCT-GLUCOSE [id number] 11:43:43 Test Item Value Reference Range Interpretation Comments POC-GLUCOSE METER 178 mg/dL 70-110 H : TESTED A T [facility] 6720 (BEAKER) (test code = [facility], 1538) [address]: Route Sales Delivery Drivers Supervisor/Techni ziare ID = [id number] for Mariza, Cassidy avier [id number] 10:42:08 Test Item Value Reference Range Interpretation Comments MAGNESIUM (BEAKER) (test code = 1.6 mg/dL 1.6-2.6 627) Route Sales Delivery Drivers Supervisor ID - ADMINPOCT-GLUCOSE [id number] 09:40:17 Test Item Value Reference Range Interpretation Comments POC-GLUCOSE METER 198 mg/dL 70-110 H : TESTED A T [facility] 6720 (BEAKER) (test code = [facility], 153) [address]: Route Sales Delivery Drivers Supervisor/Techni zaire ID = [id number] for Vannesa-Brendan, X avier HEPATIC FUNCTION [id number] 08:05:42 Test Item Value Reference Range Interpretation [...] code = 498 U/L 6-55 H 347) Route Sales Delivery Drivers Supervisor ID - MARCOOperator ID - MARCOSpecimekaz moderately ictericPOCT-GLUCOSE [id number] 07:14:07 Test Item Value Reference Range Interpretation Comments POC-GLUCOSE METER 223 mg/dL 70-110 H : TESTED A T [facility] 6720 (BEAKER) (test code = [facility], 1538) [address]: Route Sales Delivery Drivers Supervisor/Techni zaire ID = [id number] for CHERELLE WHEELER CYTOMEGALOVIRUS ANTIBODY, [id number] 06:49:51 Test Item Value Reference Range Interpretation Comments CYTOMEGALOVIRUS, IGG (BEAKER) Positive Negative, Equivocal A (test code = 3429) CMV IgG Result Interpretation: </= 0.8 Al Negative 0.9-1.0 Al Equivocal >/=1.1 Al PositivePOCT-GLUCOSE [id number] 06:13:17 Test Item Value Reference Range Interpretation Comments POC-GLUCOSE METER 235 mg/dL 70-110 H : TESTED A T [facility] 6720 (BEAKER) (test code = [place], 1538) [address]: Route Sales Delivery Drivers Supervisor/Techni zaire ID = [id number] for CHERELLE WHEELER BLOOD GAS, [id number] 06:08:25 Test Item Value Reference Range Interpretation [...] (test code = 1819) 36.0 HGB/HCT (H&H)-Stat [id number] 06:08:19 Test Item Value Reference Range Interpretation Comments Hemoglobin (test code = 8.7 See_Comment L [Au tomated message] 318-7) The system [employer] generated this result transmitted ref erence range: 13.0 - 1 6.8 GM/DL. The refe rence range was not u sed to interpret this result as normal/abnor mal. Hematocrit (test code = 26.0 % 40.0-50.0 L 4544-3) Lab Interpretation (test Abnormal code = 01635-1) [facility] - STAT [id number] 06:08:19 Test Item Value Reference Range Interpretation Comments HEMOGLOBIN (BEAKER) (test code = 8.7 GM/DL 13.0-16.8 L 410) HEMATOCRIT (BEAKER) (test code = 26.0 % 40.0-50.0 L 411) Potassium-Stat [id number] 06:06:15 Test Item Value Reference Range Interpretation Comments Potassium (test code = 2823-3) 3.5 meq/L 3.6-5.5 L Lab Interpretation (test code = Abnormal 44482-1) [facility]OT[facility]SIUM-STAT [id number] 06:06:15 Test Item Value Reference Range Interpretation Comments POTASSIUM (BEAKER) (test code = 3.5 meq/L 3.6-5.5 L 379) Glucose-Stat [id number] 06:06:14 Test Item Value Reference Range Interpretation Comments Glucose (test code = 2345-7) 239 mg/dL 70-110 H Lab Interpretation (test code = Abnormal 14889-2) [facility] [id number] 06:06:14 Test Item Value Reference Range Interpretation Comments Sodium (test code = 2951-2) 137 meq/L 136-145 Lab Interpretation (test code = Normal 35883-3) [facility] [id number] 06:06:14 Test Item Value Reference Range Interpretation Comments GLUCOSE RANDOM (BEAKER) (test code 239 mg/dL 70-110 H = 652) SODIUM NA-STAT [id number] 06:06:14 Test Item Value Reference Range Interpretation Comments SODIUM (BEAKER) (test code = 381) 137 meq/L 136-145 POCT-GLUCOSE [id number] 05:54:12 Test Item Value Reference Range Interpretation Comments POC-GLUCOSE METER 255 mg/dL 70-110 H : TESTED A T [facility] 6720 (BEAKER) (test code = NICOLE Juan J [place], 1538) [address]: Route Sales Delivery Drivers Supervisor/Techni zaire ID = [id number] for CHERELLE WHEELER BLOOD GAS, [id number] 05:03:57 Test Item Value Reference Range Interpretation [...] FIO2 (BEAKER) (test code = 1819) 40.0 [id number] 03:56:17 Test Item Value Reference Range Interpretation [...] is 2.5-3.5 for patients with mechanical heart valves.[id number] 03:55:59 Test Item Value Reference Range Interpretation Comments FIBRINOGEN LEVEL (BEAKER) (test 194 mg/dl 225-434 L code = 658) BASIC METABOLIC [id number] 03:48:53 Test Item Value Reference Range Interpretation [...] not appl icable for dialysis patien ts Route Sales Delivery Drivers Supervisor ID - ADMINSpecimen moderately [id number] 03:48:52 Test Item Value Reference Range Interpretation Comments MAGNESIUM (BEAKER) (test code = 2.1 mg/dL 1.6-2.6 627) Route Sales Delivery Drivers Supervisor ID - NHBVNQTJWZEYLQY6605-56-04 03:48:52 Test Item Value Reference Range Interpretation Comments PHOSPHORUS (BEAKER) (test code = 5.1 mg/dL 2.3-4.7 H 604) Route Sales Delivery Drivers Supervisor ID - ADMINLACTIC ACID, [id number] 03:40:32 Test Item Value Reference Range Interpretation Comments LACTATE BLOOD ARTERIAL (2) 1.0 mmol/L 0.5-2.2 (BEAKER) (test code = 2874) Route Sales Delivery Drivers Supervisor ID - ADMINSpecimen moderately ictericCBC (HEMOGRAM ONLY)2022-08-18 [...] WBC 0-0 (test code = 413) POCT-GLUCOSE [id number] 03:21:08 Test Item Value Reference Range Interpretation Comments POC-GLUCOSE METER 263 mg/dL 70-110 H : TESTED A [facility] 67[address] (BEAKER) (test code = [employer] [place], 1538) [address]: Route Sales Delivery Drivers Supervisor/Techni zaire ID = [id number] for SHWETA YONYCHERELLE Rivas BLOOD GAS, [id number] 03:15:15 Test Item Value Reference Range Interpretation [...] (BEAKER) (test code = 1819) 40.0 POCT-GLUCOSE [id number] 02:13:57 Test Item Value Reference Range Interpretation Comments POC-GLUCOSE METER 271 mg/dL 70-110 H : TESTED A T [facility] 6720 (BEAKER) (test code = [employer] [place], 1538) [address]: Route Sales Delivery Drivers Supervisor/Techni zaire ID = [id number] for CHERELLE WHEELER [id number] 01:42:34 Test Item Value Reference Range Interpretation Comments FIBRINOGEN LEVEL (BEAKER) (test 189 mg/dl 225-434 L code = 658) [id number] 01:23:47 Test Item Value Reference Range Interpretation [...] 2.5-3.5 for patients with mechanical heart valves.POCT-GLUCOSE [id number] 01:22:52 Test Item Value Reference Range Interpretation Comments POC-GLUCOSE METER 264 mg/dL 70-110 H : TESTED A T [facility] 6720 (BEAKER) (test code = NICOLE Arita [facility], 1538) [address]: Route Sales Delivery Drivers Supervisor/Techni zaire ID = [id number] for CHERELLE WHEELER BASIC METABOLIC [id number] 01:12:12 Test Item Value Reference Range Interpretation [...] not appl icable for dialysis patien ts Route Sales Delivery Drivers Supervisor ID - ADMINSpecimen moderately ictericRAD, CHEST, 1 VIEW, NON DEPT 2022-08-18 01:11:00REFERRING MD: CHERELLE SALVADOR Reason for exam:->ETT and CVC placementShould this be performed at the bedside?->Yes [facility] 1955 Sex: [...] process. Trace left effusion. Signed: Javier Griffin MDReport Verified Date/Time: 08/18/2022 01:11:31 HEPATIC FUNCTION [id number] 01:06:49 Test Item Value Reference Range Interpretation [...] code = 464 U/L 6-55 H 347) Route Sales Delivery Drivers Supervisor ID - ADMINSpecimen moderately [id number] 01:06:48 Test Item Value Reference Range Interpretation Comments MAGNESIUM (BEAKER) (test code = 1.6 mg/dL 1.6-2.6 627) Route Sales Delivery Drivers Supervisor ID - [id number] 01:06:48 Test Item Value Reference Range Interpretation Comments PHOSPHORUS (BEAKER) (test code = 5.7 mg/dL 2.3-4.7 H 604) Route Sales Delivery Drivers Supervisor ID - ADMINLACTIC ACID, [id number] 01:01:08 Test Item Value Reference Range Interpretation Comments LACTATE BLOOD 2.0 mmol/L 0.5-2.2 Specimen sligh tly ARTERIAL (2) (BEAKER) hemoly zed (test code = 2874) Route Sales Delivery Drivers Supervisor ID - ADMINSpecimen slightly ictericCBC W/PLT COUNT & AUTO [id number] 00:54:07 Test Item Value Reference Range Interpretation [...] PERCENT (BEAKER) (test code = 2801) CALCIUM, [id number] 00:39:28 Test Item Value Reference Range Interpretation Comments CALCIUM IONIZED (BEAKER) (test 1.34 mmol/L 1.12-1.27 H code = 698) PH, BLOOD (BEAKER) (test code = 7.45 1810) BLOOD GAS, [id number] 00:39:23 Test Item Value Reference Range Interpretation [...] 1819) 60.0 RAD, CHEST, 1 VIEW, NON [id number] 00:13:00REFERRING MD: CHERELLE SALVADOR Chronic Liver Failure pending Transplantation.Reason for exam:->pre opShould this be performed at the bedside?->Yes [facility] 1955 Sex: MFINAL REPORT History: pre op. Surgery unspecified Comparison: 12/24/2019 Findings: A single view of the chest is submitted. The cardiac silhouette is within normal limits for size. There is atherosclerotic calcification of the aorta. There is no focal consolidation, pneumothorax, large pleural effusion or evidence of overt pulmonary edema. There is no acute bony abnormality. Impression: Noacute abnormality. Signed: Fernando Brandon MDReport Verified Date/Time: 08/18/2022 00:13:44 CALCIUM, [id number] 22:58:53 Test Item Value Reference Range Interpretation Comments CALCIUM IONIZED (BEAKER) (test 1.43 mmol/L 1.12-1.27 H code = 698) PH, BLOOD (BEAKER) (test code = 7.44 1810) BLOOD GAS, [id number] 22:58:48 Test Item Value Reference Range Interpretation [...] = 1819) 100.0 HGB/HCT (H&H) - STAT [id number] 22:58:47 Test Item Value Reference Range Interpretation Comments HEMOGLOBIN (BEAKER) (test code = 10.2 GM/DL 13.0-16.8 L 410) HEMATOCRIT (BEAKER) (test code = 30.0 % 40.0-50.0 L 411) POTASSIUM-STAT [id number] 22:57:36 Test Item Value Reference Range Interpretation Comments POTASSIUM (BEAKER) (test code = 4.4 meq/L 3.6-5.5 379) GLUCOSE-STAT [id number] 22:57:35 Test Item Value Reference Range Interpretation Comments GLUCOSE RANDOM (BEAKER) (test code 261 mg/dL 70-110 H = 652) SODIUM NA-STAT [id number] 22:57:35 Test Item Value Reference Range Interpretation Comments SODIUM (BEAKER) (test code = 381) 139 meq/L 136-145 CALCIUM, [id number] 22:27:00 Test Item Value Reference Range Interpretation Comments CALCIUM IONIZED (BEAKER) (test 1.30 mmol/L 1.12-1.27 H code = 698) PH, BLOOD (BEAKER) (test code = 7.42 1810) BLOOD GAS, [id number] 22:27:00 Test Item Value Reference Range Interpretation [...] = 1819) 100.0 HGB/HCT (H&H) - STAT [id number] 22:27:00 Test Item Value Reference Range Interpretation Comments HEMOGLOBIN (BEAKER) (test code = 9.6 GM/DL 13.0-16.8 L 410) HEMATOCRIT (BEAKER) (test code = 28.0 % 40.0-50.0 L 411) POTASSIUM-STAT [id number] 22:26:38 Test Item Value Reference Range Interpretation Comments POTASSIUM (BEAKER) (test code = 4.2 meq/L 3.6-5.5 379) GLUCOSE-STAT [id number] 22:26:37 Test Item Value Reference Range Interpretation Comments GLUCOSE RANDOM (BEAKER) (test code 264 mg/dL 70-110 H = 652) SODIUM NA-STAT [id number] 22:26:37 Test Item Value Reference Range Interpretation Comments SODIUM (BEAKER) (test code = 381) 138 meq/L 136-145 BLOOD GAS, [id number] 21:56:45 Test Item Value Reference Range Interpretation [...] = 1819) 100.0 HGB/HCT (H&H) - STAT [id number] 21:56:45 Test Item Value Reference Range Interpretation Comments HEMOGLOBIN (BEAKER) (test code = 9.6 GM/DL 13.0-16.8 L 410) HEMATOCRIT (BEAKER) (test code = 28.0 % 40.0-50.0 L 411) CALCIUM, [id number] 21:56:44 Test Item Value Reference Range Interpretation Comments CALCIUM IONIZED (BEAKER) (test 1.35 mmol/L 1.12-1.27 H code = 698) PH, BLOOD (BEAKER) (test code = 7.42 1810) POTASSIUM-STAT [id number] 21:55:48 Test Item Value Reference Range Interpretation Comments POTASSIUM (BEAKER) (test code = 4.0 meq/L 3.6-5.5 379) GLUCOSE-STAT [id number] 21:55:47 Test Item Value Reference Range Interpretation Comments GLUCOSE RANDOM (BEAKER) (test code 261 mg/dL 70-110 H = 652) SODIUM NA-STAT [id number] 21:55:47 Test Item Value Reference Range Interpretation Comments SODIUM (BEAKER) (test code = 381) 138 meq/L 136-145 CALCIUM, [id number] 21:29:13 Test Item Value Reference Range Interpretation Comments CALCIUM IONIZED (BEAKER) (test 1.43 mmol/L 1.12-1.27 H code = 698) PH, BLOOD (BEAKER) (test code = 7.44 1810) HGB/HCT (H&H) - STAT [id number] 21:29:07 Test Item Value Reference Range Interpretation Comments HEMOGLOBIN (BEAKER) (test code = 9.6 GM/DL 13.0-16.8 L 410) HEMATOCRIT (BEAKER) (test code = 28.0 % 40.0-50.0 L 411) BLOOD GAS, [id number] 21:29:06 Test Item Value Reference Range Interpretation [...] (BEAKER) (test code = 1819) 100.0 GLUCOSE-STAT [id number] 21:28:45 Test Item Value Reference Range Interpretation Comments GLUCOSE RANDOM (BEAKER) (test code 295 mg/dL 70-110 H = 652) SODIUM NA-STAT [id number] 21:28:45 Test Item Value Reference Range Interpretation Comments SODIUM (BEAKER) (test code = 381) 138 meq/L 136-145 POTASSIUM-STAT [id number] 21:28:45 Test Item Value Reference Range Interpretation Comments POTASSIUM (BEAKER) (test code = 3.9 meq/L 3.6-5.5 379) BLOOD GAS, [id number] 21:22:19 Test Item Value Reference Range Interpretation [...] (BEAKER) (test code = 1819) 100.0 POTASSIUM-STAT [id number] 21:22:03 Test Item Value Reference Range Interpretation Comments POTASSIUM (BEAKER) (test code = 1.4 meq/L 3.6-5.5 LL 379) HGB/HCT (H&H) - STAT [id number] 21:21:37 Test Item Value Reference Range Interpretation Comments HEMOGLOBIN (BEAKER) (test code = 4.3 GM/DL 13.0-16.8 LL 410) HEMATOCRIT (BEAKER) (test code = 13.0 % 40.0-50.0 L 411) CALCIUM, [id number] 21:20:44 Test Item Value Reference Range Interpretation Comments CALCIUM IONIZED (BEAKER) (test 0.85 mmol/L 1.12-1.27 L code = 698) PH, BLOOD (BEAKER) (test code = 7.47 1810) GLUCOSE-STAT [id number] 21:20:22 Test Item Value Reference Range Interpretation Comments GLUCOSE RANDOM (BEAKER) (test code = 65 mg/dL 70-110 L 652) SODIUM NA-STAT [id number] 21:20:22 Test Item Value Reference Range Interpretation Comments SODIUM (BEAKER) (test code = 381) 140 meq/L 136-145 BLOOD GAS, [id number] 20:59:44 Test Item Value Reference Range Interpretation [...] = 1819) 100.0 HGB/HCT (H&H) - STAT [id number] 20:59:33 Test Item Value Reference Range Interpretation Comments HEMOGLOBIN (BEAKER) (test code = 9.9 GM/DL 13.0-16.8 L 410) HEMATOCRIT (BEAKER) (test code = 29.0 % 40.0-50.0 L 411) SODIUM NA-STAT [id number] 20:59:02 Test Item Value Reference Range Interpretation Comments SODIUM (BEAKER) (test code = 381) 137 meq/L 136-145 POTASSIUM-STAT [id number] 20:59:02 Test Item Value Reference Range Interpretation Comments POTASSIUM (BEAKER) (test code = 4.1 meq/L 3.6-5.5 379) GLUCOSE-STAT [id number] 20:59:01 Test Item Value Reference Range Interpretation Comments GLUCOSE RANDOM (BEAKER) (test code 152 mg/dL 70-110 H = 652) CALCIUM, [id number] 20:57:41 Test Item Value Reference Range Interpretation Comments CALCIUM IONIZED (BEAKER) (test 1.25 mmol/L 1.12-1.27 code = 698) PH, BLOOD (BEAKER) (test code = 7.42 1810) CALCIUM, [id number] 20:11:47 Test Item Value Reference Range Interpretation Comments CALCIUM IONIZED (BEAKER) (test 0.86 mmol/L 1.12-1.27 L code = 698) PH, BLOOD (BEAKER) (test code = 7.38 1810) BLOOD GAS, [id number] 20:11:47 Test Item Value Reference Range Interpretation [...] = 1819) 100.0 HGB/HCT (H&H) - STAT [id number] 20:11:47 Test Item Value Reference Range Interpretation Comments HEMOGLOBIN (BEAKER) (test code = 11.2 GM/DL 13.0-16.8 L 410) HEMATOCRIT (BEAKER) (test code = 33.0 % 40.0-50.0 L 411) POTASSIUM-STAT [id number] 20:11:36 Test Item Value Reference Range Interpretation Comments POTASSIUM (BEAKER) (test code = 3.9 meq/L 3.6-5.5 379) GLUCOSE-STAT [id number] 20:11:36 Test Item Value Reference Range Interpretation Comments GLUCOSE RANDOM (BEAKER) (test code 163 mg/dL 70-110 H = 652) SODIUM NA-STAT [id number] 20:11:35 Test Item Value Reference Range Interpretation Comments SODIUM (BEAKER) (test code = 381) 136 meq/L 136-145 CALCIUM, [id number] 19:16:27 Test Item Value Reference Range Interpretation Comments CALCIUM IONIZED (BEAKER) (test 0.97 mmol/L 1.12-1.27 L code = 698) PH, BLOOD (BEAKER) (test code = 7.41 1810) BLOOD GAS, [id number] 19:16:27 Test Item Value Reference Range Interpretation [...] = 1819) 100.0 HGB/HCT (H&H) - STAT [id number] 19:16:27 Test Item Value Reference Range Interpretation Comments HEMOGLOBIN (BEAKER) (test code = 11.7 GM/DL 13.0-16.8 L 410) HEMATOCRIT (BEAKER) (test code = 34.0 % 40.0-50.0 L 411) POTASSIUM-STAT [id number] 19:16:09 Test Item Value Reference Range Interpretation Comments POTASSIUM (BEAKER) (test code = 3.6 meq/L 3.6-5.5 379) SODIUM NA-STAT [id number] 19:16:04 Test Item Value Reference Range Interpretation Comments SODIUM (BEAKER) (test code = 381) 137 meq/L 136-145 GLUCOSE-STAT [id number] 19:16:03 Test Item Value Reference Range Interpretation Comments GLUCOSE RANDOM (BEAKER) (test code 119 mg/dL 70-110 H = 652) HGB/HCT (H&H) - STAT [id number] 18:16:17 Test Item Value Reference Range Interpretation Comments HEMOGLOBIN (BEAKER) (test code = 10.7 GM/DL 13.0-16.8 L 410) HEMATOCRIT (BEAKER) (test code = 31.0 % 40.0-50.0 L 411) CALCIUM, [id number] 18:16:16 Test Item Value Reference Range Interpretation Comments CALCIUM IONIZED (BEAKER) (test 1.02 mmol/L 1.12-1.27 L code = 698) PH, BLOOD (BEAKER) (test code = 7.45 1810) BLOOD GAS, [id number] 18:16:16 Test Item Value Reference Range Interpretation [...] (BEAKER) (test code = 1819) 100.0 POTASSIUM-STAT [id number] 18:16:16 Test Item Value Reference Range Interpretation Comments POTASSIUM (BEAKER) (test code = 3.3 meq/L 3.6-5.5 L 379) SODIUM NA-STAT [id number] 18:15:56 Test Item Value Reference Range Interpretation Comments SODIUM (BEAKER) (test code = 381) 135 meq/L 136-145 L GLUCOSE-STAT [id number] 18:15:51 Test Item Value Reference Range Interpretation Comments GLUCOSE RANDOM (BEAKER) (test code = 90 mg/dL 70-110 652) [id number] 15:58:24 Test Item Value Reference Range Interpretation Comments T3 TOTAL (BEAKER) (test code = 0.73 ng/mL 0.60-1.81 656) [employer] Supervisor ID - [id number] 15:02:29 Test Item Value Reference Range Interpretation Comments T4 TOTAL (BEAKER) (test code = 895) 4.9 ug/dL 4.9-11.7 [employer] Supervisor ID - BSSARS-COV2/RT-PCR ([facility])2022-08-17 14:16:24 Test Item Value Reference Range Interpretation Comments SARS-COV2/RT-PCR Negative Negative The SARS-Co V-2 target (test code = nucleic acids a re not 8376847) detected in thi s specimen. Negative result [...] revoked sooner. Fact Sheet for Healthcare Providers: https://www.[employer] m/Documents/Xpert%20Xpress%20SARS%20CoV-2/Fact%20Sheets/3023802%48WUIQ-TEM-4%20 HEALTHCARE%20PROVIDERS%20FACT%20SHEET.pdf Fact Sheet for Healthcare Patients: https://www.[employer]/Documents/Xpert%20Xp ress%20SARS%20CoV-2/Fact%20Sheets/3023801%96SXOT-DFC-8%20PATIENT%20FACT%20SHEET .pdfHEPATITIS B [id number] 14:16:11 Test Item Value Reference Range Interpretation Comments HEPATITIS B CORE TOTAL ANTIBODY Nonreactive Nonreactive (Zoop[employer]) (test code = 497) HEPATITIS B SURFACE ANTIBODY < mIU/mL <8.0 (ZoopAKER) (test code = 647) HEPATITIS B SURFACE ANTIGEN (2) Nonreactive Nonreactive ([employer]) (test code = 2585) [employer] Supervisor ID - [id number] 14:07:15 Test Item Value Reference Range Interpretation Comments THYROID STIMULATING HORMONE 1.645 uIU/mL 0.350-4.940 (ZoopAKER) (test code = 772) [employer] Supervisor ID - ADMINHEPATITIS C [id number] 14:07:15 Test Item Value Reference Range Interpretation Comments HEPATITIS C ANTIBODY (BEAKER) Nonreactive Nonreactive (test code = 367) [employer] Supervisor ID - ADMINHIV-1 ANTIGEN WITH HIV-1/2 [id number] 14:07:15 Test Item Value Reference Range Interpretation Comments HIV-1 ANTIGEN WITH HIV 1\\T\\2 Nonreactive Nonreactive ANTIBODY (2) (BEAKER) (test code = 2586) [employer] Supervisor ID - ADMINCOMPREHENSIVE METABOLIC [id number] 13:47:12 Test Item Value Reference Range Interpretation [...] St age Description sq m Result G1 Norm al or [...] not appl icable for dialysis patien ts [employer] Supervisor ID - ADMINSpecimen slightly ictericGAMMA GLUTAMYL TRANSFERASE (GGT) 2022-08-17 13:47:12 Test Item Value Reference Range Interpretation Comments GAMMA GLUTAMYL TRANSFERASE (BEAKER) 51 U/L 9-64 (test code = 364) [employer] Supervisor ID - ADMINSpecimen slightly [id number] 13:47:11 Test Item Value Reference Range Interpretation Comments MAGNESIUM (BEAKER) (test code = 1.4 mg/dL 1.6-2.6 L 627) [employer] Supervisor ID - [id number] 13:47:11 Test Item Value Reference Range Interpretation Comments PHOSPHORUS (BEAKER) (test code = 3.1 mg/dL 2.3-4.7 604) [employer] Supervisor ID - [id number] 13:37:06 Test Item Value Reference Range Interpretation Comments PARTIAL THROMBOPLASTIN TIME 32.8 seconds 22.5-36.0 (BEAKER) (test code = 760) PROTHROMBIN [id number] 13:36:25 Test Item Value Reference Range Interpretation [...] mechanical heart valves.CBC W/PLT COUNT & AUTO [id number] 13:28:29 Test Item Value Reference Range Interpretation [...] (BEAKER) (test code = 2801) STAT-LAB IONIZED [id number] 13:26:42 Test Item Value Reference Range Interpretation Comments FILTER IONIZED CALCIUM (BEAKER) 1.03 nnol/L (test code = 1854) Reference Range: No NormalsCT, CHEST, WITHOUT [id number] 11:39:00 REFERRING MD: CHERELLE SALVADOR Unlisted Reason for Exam - Click Yes and Enter Reason Below->YesUnlisted Reason for Exam->Hepatocellular [facility] 1955 Sex: [...] ral airways. No pleural effusion or pneumothorax. Continued stability of an 8 mm groundglass attenuation nodule within the right lower lobe seen on axial image 34. The lungs are otherwise clear. Gynecomastia is again noted. Within the partially imaged upper abdomen, cirrhotic liver and enlarged spleenare noted. Esophageal varices are consistent with portal hypertension. No aggressive osseous lesion.Impression: 1. No definite metastatic disease in the chest.2. Continued stability of 8mm right lowerlobe groundglass nodule. Signed: Ankit Gaines MDRepsaint j[facility] Verified Date/Time: 05/22/2022 11:39:18 MR, ABDOMEN, [id number] 14:59:00 REFERRING MD: CHERELLE SALVADOR Unlisted Reason for Exam - Click Yes and Enter Reason Below->YesUnlisted Reason for Exam->Hepatocellular carcinoma [facility] : 1955 Sex: [...] segment four without interval change (arterial phase image85), they demonstrate no washout or pseudocapsule, LI-RADS [...] demonstrate no mass, or hydronephrosis. There is madeof a large duodenal diverticulum. Visualized bowel is otherwise unremarkable. No significant ascites. No lymphadenopathy. No suspicious bony lesion. Impression: Stable treatment cavities in segment eight and segment three, LR-TR nonviable. A few additional subcentimeter arterially enhancing observations, LI-RADS 3, amenable to routine surveillance. No new suspicious liver mass. Cirrhosis and splenomeg fly. Signed: Radha Royal Verified Date/Time: 05/21/2022 14:59:42 ALPHA FETOPROTEIN (AFP), TUMOR [id number] 12:23:11 Test Item Value Reference Range Interpretation Comments ALPHA-FETOPROTEIN (BEAKER) (test code < ng/mL <10.0 = 1094) [employer] Supervisor ID - MITCHCBC W/PLT COUNT & AUTO [id number] 11:00:53 Test Item Value Reference Range Interpretation [...] (BEAKER) (test code = 2801) HEPATIC FUNCTION [id number] 11:00:04 Test Item Value Reference Range Interpretation [...] (test code = 28 U/L 6-55 347) [employer] Supervisor ID - BETTE GBASIC METABOLIC [id number] 10:59:58 Test Item Value Reference Range Interpretation [...] not appl icable for dialysis patien ts Route [employer] Supervisor ID - BETTE GPROTHROMBIN TIME/[id number] 10:51:01 Test Item Value Reference Range Interpretation Comments PROTIME (BEAKER) 16.9 seconds 11.9-14.2 H (test code = 759) INR (BEAKER) (test 1.46 See_Comment [Automat ed message] code = 370) The system [employer] generated this result transmitted ref erence range: <=5.90. The reference range was not used to int erpret this result as normal/abnormal . RECOMMENDED COUMADIN/WARFARIN INR THERAPY RANGESSTANDARD DOSE: 2.0 - 3.0 Includes: PROPHYLAXIS for venous thrombosis, systemic embolization; TREATMENT for venous thrombosis and/or pulmonary embolus.HIGH RISK: Target INR is 2.5-3.5 for patients with mechanical heart valves.[id number] 09:52:00 Test Item Value Reference Range Interpretation Comments Ferritin, Serum (test code = 2276-4) 16 ng/mL 24-380 L Lab Interpretation (test code = Abnormal 26388-7) [facility] with platelet count + automated [id number] 09:52:00 Test Item Value Reference Range Interpretation Comments WBC (test code = 7.2 See_Comment [Automated message] ) The system [employer] generated this result transmit lisa reference range : 3.8 - 10.8 Thousand /uL. The reference r mela was not used to interpret this result as normal/abnormal . RBC (test code = 789-8) 4.03 See_Comment L [Au tomated message] The system [employer] generated this result transmit lisa reference range [...] L [Aut omated message] ) The system [employer] generated this result transmit lisa reference range : 140 - 400 Thousand/ uL. The reference r mela was not used to interpret this result as normal/abnormal . MPV (test code = 7.5-12.5 Due to plat elet or 1237519) RBC variability in size or shapeth e result cannot b e reported accura tely. # Neutros (test code = 4284 See_Comment [Aut omated message] 1408851) The system [employer] generated this result transmit lisa reference range : 1,500 - 7,800 cells/uL. The reference range was not used to interpret this result as normal/abnormal . # Lymphs (test code = 1879 See_Comment [Auto mated message] 731-0) The system [employer] generated this result transmit lisa reference range : 850 - 3,900 cells/u L. The reference r mela was not used to interpret this result as normal/abnormal . # Monos (test code = 871 See_Comment [Autom ated message] ) The system [employer] generated this result transmit lisa reference range : 200 - 950 cells/uL. The reference range was not used to interpret this result as normal/abnormal . # Eos (test code = 108 See_Comment [Automat ed message] 1-2) The system [employer] generated this result transmit lisa reference range : 15 - 500 cells/uL. The reference range was not used to interpret this result as normal/abnormal . # Baso (test code = 58 See_Comment [Automa lisa message] 4-7) The system [employer] generated this result transmit lisa reference range [...] 20191218) Lab Interpretation (test Abnormal code = 28049-7) [facility] (without ferritin[facility]-08 09:52:00 Test Item Value Reference Range Interpretation Comments Iron (test code = 21 See_Comment L [Automate d message] 8693686) The system [employer] generated this result transmitted ref erence range: 50 - 180 mcg/dL. The ref erence range was not u sed to interpret this result as normal/abnor mal. Iron Bind.Cap.(TIBC) 309 See_Comment [Autom ated message] (test code = 2083770) The sy stem which generated this result transmitted ref erence range: 250 - 42 5 mcg/dL (calc). The reference range was not used to int erpret this result as normal/abnormal . Iron % Saturation (test 7 See_Comment L [Au tomated message] code = 8470470) The system B-[facility] generated this result transmitted ref erence range: 20 - 48 % (calc). The ref erence range was not u sed to interpret this result as normal/abnor mal. Lab Interpretation (test Abnormal code = 29928-7) [facility] [id number] 09:52:00 Test Item Value Reference Range Interpretation Comments Platelet Estimate (test code = DECREASED ADEQUATE A 39235-1) Lab Interpretation (test code = Abnormal 36777-7) [facility] 09:52:00 Test Item Value Reference Range Interpretation Comments Ferritin, Serum (test code = 2276-4) 16 ng/mL 24-380 L Lab Interpretation (test code = Abnormal 05637-0) [facility] + automated [id number] 09:52:00 Test Item Value Reference Range Interpretation Comments WBC (test code = 7.2 See_Comment [Automated message] ) The system [employer] generated this result transmit lisa reference range : 3.8 - 10.8 Thousand /uL. The reference r mela was not used to interpret this result as normal/abnormal . RBC (test code = 789-8) 4.03 See_Comment L [Au tomated message] The system [employer] generated this result transmit lisa reference range [...] L [Aut omated message] ) The system [employer] generated this result transmit lisa reference range : 140 - 400 Thousand/ uL. The reference r mela was not used to interpret this result as normal/abnormal . MPV (test code = 7.5-12.5 Due to plat elet or 8641006) RBC variability in size or shapeth e result cannot b e reported accura tely. # Neutros (test code = 4284 See_Comment [Aut omated message] 20191222) The system [employer] generated this result transmit lisa reference range : 1,500 - 7,800 cells/uL. The reference range was not used to interpret this result as normal/abnormal . # Lymphs (test code = 1879 See_Comment [Auto mated message] 731-0) The system [employer] generated this result transmit lisa reference range : 850 - 3,900 cells/u L. The reference r mela was not used to interpret this result as normal/abnormal . # Monos (test code = 871 See_Comment [Autom ated message] ) The system [employer] generated this result transmit lisa reference range : 200 - 950 cells/uL. The reference range was not used to interpret this result as normal/abnormal . # Eos (test code = 108 See_Comment [Automat ed message] 711-2) The system [employer] generated this result transmit lisa reference range : 15 - 500 cells/uL. The reference range was not used to interpret this result as normal/abnormal . # Baso (test code = 58 See_Comment [Automa lisa message] 704-7) The system [employer] generated this result transmit lisa reference range [...] 20191218) Lab Interpretation (test Abnormal code = 89148-2) [facility], % sat. (without ferritin)2022-01-08 09:52:00 Test Item Value Reference Range Interpretation Comments Iron (test code = 21 See_Comment L [Automate d message] ) The system [employer] generated this result transmitted ref erence range: [...] See_Comment L [Au tomated message] code = ) The system B-152 [facility] generated this result transmitted ref erence range: 20 - 48 % (calc). The ref erence range was not u sed to interpret this result as normal/abnor mal. Lab Interpretation (test Abnormal code = 57117-2) [facility] [id number] 09:52:00 Test Item Value Reference Range Interpretation Comments Platelet Estimate (test code = DECREASED ADEQUATE A 77541-6) Lab Interpretation (test code = Abnormal 88572-0) [facility] 09:52:00 Test Item Value Reference Range Interpretation Comments Ferritin, Serum (test code = 2276-4) 16 ng/mL 24-380 L Lab Interpretation (test code = Abnormal 15394-7) [facility] with platelet count + automated [id number] 09:52:00 Test Item Value Reference Range Interpretation Comments WBC (test code = 7.2 See_Comment [Automated message] ) The system [employer] generated this result transmit lisa reference range : 3.8 - 10.8 Thousand /uL. The reference r mela was not used to interpret this result as normal/abnormal . RBC (test code = 789-8) 4.03 See_Comment L [Au tomated message] The system [employer] generated this result transmit lisa reference range [...] L [Aut omated message] ) The system [employer] generated this result transmit lisa reference range : 140 - 400 Thousand/ uL. The reference r mela was not used to interpret this result as normal/abnormal . MPV (test code = 7.5-12.5 Due to plat elet or 9139762) RBC variability in size or shapeth e result cannot b e reported accura tely. # Neutros (test code = 4284 See_Comment [Aut omated message] 20191222) The system [employer] generated this result transmit lisa reference range : 1,500 - 7,800 cells/uL. The reference range was not used to interpret this result as normal/abnormal . # Lymphs (test code = 1879 See_Comment [Auto mated message] 731-0) The system [employer] generated this result transmit lisa reference range : 850 - 3,900 cells/u L. The reference r mela was not used to interpret this result as normal/abnormal . # Monos (test code = 871 See_Comment [Autom ated message] ) The system [employer] generated this result transmit lisa reference range : 200 - 950 cells/uL. The reference range was not used to interpret this result as normal/abnormal . # Eos (test code = 108 See_Comment [Automat ed message] 711-2) The system [employer] generated this result transmit lisa reference range : 15 - 500 cells/uL. The reference range was not used to interpret this result as normal/abnormal . # Baso (test code = 58 See_Comment [Automa lisa message] 704-7) The system [employer] generated this result transmit lisa reference range [...] 20191218) Lab Interpretation (test Abnormal code = 65047-0) [facility], % sat. (without ferritin)2022-01-08 09:52:00 Test Item Value Reference Range Interpretation Comments Iron (test code = 21 See_Comment L [Automate d message] ) The system [employer] generated this result transmitted ref erence range: 50 - 180 mcg/dL. The ref erence range was not u sed to interpret this result as normal/abnor mal. Iron Bind.Cap.(TIBC) 309 See_Comment [Autom ated message] (test code = 2875561) The sy stem which generated this result transmitted ref erence range: 250 - 42 5 mcg/dL (calc). The reference range was not used to int erpret this result as normal/abnormal . Iron % Saturation (test 7 See_Comment L [Au tomated message] code = ) The system [employer] generated this result transmitted ref erence range: 20 - 48 % (calc). The ref erence range was not u sed to interpret this result as normal/abnor mal. Lab Interpretation (test Abnormal code = 60449-3) [facility] [id number] 09:52:00 Test Item Value Reference Range Interpretation Comments Platelet Estimate (test code = DECREASED ADEQUATE A 36530-1) Lab Interpretation (test code = Abnormal 95099-0) [facility] 09:52:00 Test Item Value Reference Range Interpretation Comments Ferritin, Serum (test code = 2276-4) 16 ng/mL 24-380 L Lab Interpretation (test code = Abnormal 19599-2) [facility] + automated [id number] 09:52:00 Test Item Value Reference Range Interpretation Comments WBC (test code = 7.2 See_Comment [Automated message] ) The system [employer] generated this result transmit lisa reference range : 3.8 - 10.8 Thousand /uL. The reference r mela was not used to interpret this result as normal/abnormal . RBC (test code = 789-8) 4.03 See_Comment L [Au tomated message] The system [employer] generated this result transmit lisa reference range [...] L [Aut omated message] ) The system [employer] generated this result transmit lisa reference range : 140 - 400 Thousand/ uL. The reference r mela was not used to interpret this result as normal/abnormal . MPV (test code = 7.5-12.5 Due to plat elet or 9090680) RBC variability in size or shapeth e result cannot b e reported accura tely. # Neutros (test code = 4284 See_Comment [Aut omated message] 20191222) The system [employer] generated this result transmit lisa reference range : 1,500 - 7,800 cells/uL. The reference range was not used to interpret this result as normal/abnormal . # Lymphs (test code = 1879 See_Comment [Auto mated message] 731-0) The system [employer] generated this result transmit lisa reference range : 850 - 3,900 cells/u L. The reference r mela was not used to interpret this result as normal/abnormal . # Monos (test code = 871 See_Comment [Autom ated message] ) The system [employer] generated this result transmit lisa reference range : 200 - 950 cells/uL. The reference range was not used to interpret this result as normal/abnormal . # Eos (test code = 108 See_Comment [Automat ed message] 711-2) The system [employer] generated this result transmit lisa reference range : 15 - 500 cells/uL. The reference range was not used to interpret this result as normal/abnormal . # Baso (test code = 58 See_Comment [Automa lisa message] 704-7) The system [employer] generated this result transmit lisa reference range [...] 20191218) Lab Interpretation (test Abnormal code = 10139-3) [facility], % sat. (without ferritin)2022-01-08 09:52:00 Test Item Value Reference Range Interpretation Comments Iron (test code = 21 See_Comment L [Automate d message] ) The system [employer] generated this result transmitted ref erence range: 50 - 180 mcg/dL. The ref erence range was not u sed to interpret this result as normal/abnor mal. Iron Bind.Cap.(TIBC) 309 See_Comment [Autom ated message] (test code = 9551827) The sy stem which generated this result transmitted ref erence range: 250 - 42 5 mcg/dL (calc). The reference range was not used to int erpret this result as normal/abnormal . Iron % Saturation (test 7 See_Comment L [Au tomated message] code = 0237061) The system B-152 [facility] generated this result transmitted ref erence range: 20 - 48 % (calc). The ref erence range was not u sed to interpret this result as normal/abnor mal. Lab Interpretation (test Abnormal code = 66861-9) [facility] [id number] 09:52:00 Test Item Value Reference Range Interpretation Comments Platelet Estimate (test code = DECREASED ADEQUATE A 69218-6) Lab Interpretation (test code = Abnormal 87848-6) [facility]in20[facility] 09:52:00 Test Item Value Reference Range Interpretation Comments Ferritin, Serum (test code = 2276-4) 16 ng/mL 24-380 L Lab Interpretation (test code = Abnormal 10770-8) [facility] platelet count + automated [id number] 09:52:00 Test Item Value Reference Range Interpretation Comments WBC (test code = 7.2 See_Comment [Automated message] ) The system [employer] generated this result transmit lisa reference range : 3.8 - 10.8 Thousand /uL. The reference r mela was not used to interpret this result as normal/abnormal . RBC (test code = 789-8) 4.03 See_Comment L [Au tomated message] The system [employer] generated this result transmit lisa reference range [...] L [Aut omated message] ) The system [employer] generated this result transmit lisa reference range : 140 - 400 Thousand/ uL. The reference r mela was not used to interpret this result as normal/abnormal . MPV (test code = 7.5-12.5 Due to plat elet or 4725338) RBC variability in size or shapeth e result cannot b e reported accura tely. # Neutros (test code = 4284 See_Comment [Aut omated message] 20191222) The system [employer] generated this result transmit lisa reference range : 1,500 - 7,800 cells/uL. The reference range was not used to interpret this result as normal/abnormal . # Lymphs (test code = 1879 See_Comment [Auto mated message] 731-0) The system [employer] generated this result transmit lisa reference range : 850 - 3,900 cells/u L. The reference r mela was not used to interpret this result as normal/abnormal . # Monos (test code = 871 See_Comment [Autom ated message] ) The system [employer] generated this result transmit lisa reference range : 200 - 950 cells/uL. The reference range was not used to interpret this result as normal/abnormal . # Eos (test code = 108 See_Comment [Automat ed message] 1-2) The system [employer] generated this result transmit lisa reference range : 15 - 500 cells/uL. The reference range was not used to interpret this result as normal/abnormal . # Baso (test code = 58 See_Comment [Automa lisa message] 4-7) The system [employer] generated this result transmit lisa reference range [...] 20191218) Lab Interpretation (test Abnormal code = 22037-5) [facility], TIBC, % sat. (without ferritin)2022-01-08 09:52:00 Test Item Value Reference Range Interpretation Comments Iron (test code = 21 See_Comment L [Automate d message] ) The system [employer] generated this result transmitted ref erence range: 50 - 180 mcg/dL. The ref erence range was not u sed to interpret this result as normal/abnor mal. Iron Bind.Cap.(TIBC) 309 See_Comment [Autom ated message] (test code = 6775076) The sy stem which generated this result transmitted ref erence range: 250 - 42 5 mcg/dL (calc). The reference range was not used to int erpret this result as normal/abnormal . Iron % Saturation (test 7 See_Comment L [Au tomated message] code = 8760950) The system B-152 [facility] generated this result transmitted ref erence range: 20 - 48 % (calc). The ref erence range was not u sed to interpret this result as normal/abnor mal. Lab Interpretation (test Abnormal code = 40057-8) [facility] [id number] 09:52:00 Test Item Value Reference Range Interpretation Comments Platelet Estimate (test code = DECREASED ADEQUATE A 87506-4) Lab Interpretation (test code = Abnormal 12059-2) [facility] 09:52:00 Test Item Value Reference Range Interpretation Comments Ferritin, Serum (test code = 2276-4) 16 ng/mL 24-380 L Lab Interpretation (test code = Abnormal 67438-1) [facility] + automated [id number] 09:52:00 Test Item Value Reference Range Interpretation Comments WBC (test code = 7.2 See_Comment [Automated message] ) The system [employer] generated this result transmit lisa reference range : 3.8 - 10.8 Thousand /uL. The reference r mela was not used to interpret this result as normal/abnormal . RBC (test code = 789-8) 4.03 See_Comment L [Au tomated message] The system [employer] generated this result transmit lisa reference range [...] L [Aut omated message] ) The system [employer] generated this result transmit lisa reference range : 140 - 400 Thousand/ uL. The reference r mela was not used to interpret this result as normal/abnormal . MPV (test code = 7.5-12.5 Due to plat elet or 2504218) RBC variability in size or shapeth e result cannot b e reported accura tely. # Neutros (test code = 4284 See_Comment [Aut omated message] 20191222) The system [employer] generated this result transmit lisa reference range : 1,500 - 7,800 cells/uL. The reference range was not used to interpret this result as normal/abnormal . # Lymphs (test code = 1879 See_Comment [Auto mated message] 731-0) The system [employer] generated this result transmit lisa reference range : 850 - 3,900 cells/u L. The reference r mela was not used to interpret this result as normal/abnormal . # Monos (test code = 871 See_Comment [Autom ated message] ) The system [employer] generated this result transmit lisa reference range : 200 - 950 cells/uL. The reference range was not used to interpret this result as normal/abnormal . # Eos (test code = 108 See_Comment [Automat ed message] 1-2) The system [employer] generated this result transmit lisa reference range : 15 - 500 cells/uL. The reference range was not used to interpret this result as normal/abnormal . # Baso (test code = 58 See_Comment [Automa lisa message] 4-7) The system [employer] generated this result transmit lisa reference range [...] 20191218) Lab Interpretation (test Abnormal code = 69997-3) [facility], TIBC, % sat. (without ferritin)2022-01-08 09:52:00 Test Item Value Reference Range Interpretation Comments Iron (test code = 21 See_Comment L [Automate d message] ) The system [employer] generated this result transmitted ref erence range: [...] See_Comment L [Au tomated message] code = 2252976) The system B-152 [facility] generated this result transmitted ref erence range: 20 - 48 % (calc). The ref erence range was not u sed to interpret this result as normal/abnor mal. Lab Interpretation (test Abnormal code = 46008-8) [facility] [id number] 09:52:00 Test Item Value Reference Range Interpretation Comments Platelet Estimate (test code = DECREASED ADEQUATE A 86794-5) Lab Interpretation (test code = Abnormal 28265-9) [facility]20[facility] 09:52:00 Test Item Value Reference Range Interpretation Comments Ferritin, Serum (test code = 2276-4) 16 ng/mL 24-380 L Lab Interpretation (test code = Abnormal 48685-0) [facility] with platelet count + automated [id number] 09:52:00 Test Item Value Reference Range Interpretation Comments WBC (test code = 7.2 See_Comment [Automated message] ) The system [employer] generated this result transmit lisa reference range : 3.8 - 10.8 Thousand /uL. The reference r mela was not used to interpret this result as normal/abnormal . RBC (test code = 789-8) 4.03 See_Comment L [Au tomated message] The system [employer] generated this result transmit lisa reference range [...] L [Aut omated message] ) The system [employer] generated this result transmit lisa reference range : 140 - 400 Thousand/ uL. The reference r mela was not used to interpret this result as normal/abnormal . MPV (test code = 7.5-12.5 Due to plat elet or 3200935) RBC variability in size or shapeth e result cannot b e reported accura tely. # Neutros (test code = 4284 See_Comment [Aut omated message] 20191222) The system [employer] generated this result transmit lisa reference range : 1,500 - 7,800 cells/uL. The reference range was not used to interpret this result as normal/abnormal . # Lymphs (test code = 1879 See_Comment [Auto mated message] 731-0) The system [employer] generated this result transmit lisa reference range : 850 - 3,900 cells/u L. The reference r mela was not used to interpret this result as normal/abnormal . # Monos (test code = 871 See_Comment [Autom ated message] ) The system [employer] generated this result transmit lisa reference range : 200 - 950 cells/uL. The reference range was not used to interpret this result as normal/abnormal . # Eos (test code = 108 See_Comment [Automat ed message] 1-2) The system [employer] generated this result transmit lisa reference range : 15 - 500 cells/uL. The reference range was not used to interpret this result as normal/abnormal . # Baso (test code = 58 See_Comment [Automa lisa message] 704-7) The system [employer] generated this result transmit lisa reference range [...] 20191218) Lab Interpretation (test Abnormal code = 71729-1) [facility], TIBC, % sat. (without ferritin)2022-01-08 09:52:00 Test Item Value Reference Range Interpretation Comments Iron (test code = 21 See_Comment L [Automate d message] 3976605) The system whic h generated this result transmitted ref erence range: 50 - 180 mcg/dL. The ref erence range was not u sed to interpret this result as normal/abnor mal. Iron Bind.Cap.(TIBC) 309 See_Comment [Autom ated message] (test code = 7348552) The sy stem which generated this result transmitted ref erence range: 250 - 42 5 mcg/dL (calc). The reference range was not used to int erpret this result as normal/abnormal . Iron % Saturation (test 7 See_Comment L [Au tomated message] code = 6589843) [facility] result transmitted ref erence range: 20 - 48 % (calc). The ref erence range was not u sed to interpret this result as normal/abnor mal. 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 The reference range was not used to interpret this result as normal/abnormal . RBC (test code = See_Comment L [Automated 439-8) message] The system which generated this result [...] RDW-SD (test code = 49.4 fL 38.5-51.6 28478-2) RDW-CV (test code = 20.9 % 12.1-15.4 H 788-0) PLT (test code = See_Comment L [Automated 777-3) message] The system which generated this result transmitted reference range : 150 - 328 10*3/?L. The reference range was not used to interpret this result as normal/abnormal . MPV (test code = Not Measure d 41080-0) NRBC/100 WBC (test See_Comment [Automat ed code = 7784181994) message] The system which generated this result transmitted reference range : 0.0 - 10.0 /100 WBCs. The reference range was not used to interpret this result as normal/abnormal . NRBC x10^3 (test code See_Comment [Auto mated = 2203330549) message] The system which generated this result transmitted reference range : 10*3/?L. The reference range was not used to interpret this result as normal/abnormal . GRAN MAT (NEUT) % 85.5 % (test code = 770-8) IMM GRAN % (test code 0.50 % = 7551975220) LYMPH % (test code = 7.6 % 736-9) MONO % (test code = 5.8 % 5905-5) EOS % (test code = 0.1 % 713-8) BASO % (test code = 0.5 % 706-2) GRAN MAT x10^3(ANC) 9.28 10*3/uL 1.99-6.95 H (test code = 7538668346) IMM GRAN x10^3 (test 0.05 10*3/uL 0-0.06 code = 4311298051) LYMPH x10^3 (test 0.82 10*3/uL 1.09-3.23 L code = 731-0) MONO x10^3 (test code 0.63 10*3/uL 0.36-1.02 = 742-7) EOS x10^3 (test code 0.06-0.53 L = 711-2) BASO x10^3 (test code 0.05 10*3/uL 0.01-0.09 = 704-7) PLT ESTIMATE (test Decreased Normal A code = 9317-9) MADALYN (test code = MADALYN) No Platelet clumps seen Lab Interpretation Abnormal (test code = 52802-7) [facility] METABOLIC PANEL (NA, K, CL, CO2, GLUCOSE, BUN, CREATININE, CA)2021-12-26 21:51:09 Test Item Value Reference Range Interpretation Comments NA (test code = 134 mmol/L 135-145 L 0824638934) K (test code = 3.7 mmol/L 3.5-5 0153110399) CL (test code = 105 mmol/L 98-108 4402570237) CO2 TOTAL (test code = 21 mmol/L 23-31 L 3545116516) AGAP (test code = 2-16 3529907008) BUN (test code = 5 mg/dL 7-23 L 6379000606) GLUCOSE (test code = 257 mg/dL 70-110 H 7603462845) CREATININE (test code = 0.61 mg/dL 0.6-1.25 2872324369) CALCIUM (test code = 7.9 mg/dL 8.6-10.6 L 2461745382) eGFR (test code = mL/min/1.73m2 3451614862) MADALYN (test code = MADALYN) Association of [...] tests). Lab Interpretation Abnormal (test code = 83461-5) [facility] METABOLIC [id number] 13:28:32 Test Item Value Reference Range Interpretation [...] (test code = 697) EGFR (BEAKER) 103 Interpretati on of eGFR (test code = mL/min/1.73 values [...] not appl icable for dialysis patien ts Route [employer] D[employer] Supervisor ID - BSSpecimen slightly ictericHEPATIC FUNCTION [id number] 13:28:32 Test Item Value Reference Range Interpretation [...] (test code = 21 U/L 6-55 347) [employer] Supervisor ID - BSSpecimen slightly ictericPROTHROMBIN [id number] 13:21:12 Test Item Value Reference Range Interpretation Comments PROTIME (BEAKER) 17.5 seconds 11.9-14.2 H (test code = 759) INR (BEAKER) (test 1.46 See_Comment [Automat ed message] code = 370) The system [employer] generated this result transmitted ref erence range: <=5.90. The reference range was not used to int erpret this result as normal/abnormal . RECOMMENDED COUMADIN/WARFARIN INR THERAPY RANGESSTANDARD DOSE: 2.0 - 3.0 Includes: PROPHYLAXIS for venous thrombosis, systemic embolization; TREATMENT for venous thrombosis and/or pulmonary embolus.HIGH RISK: Target INR is 2.5-3.5 for patients with mechanical heart valves.CBC W/PLT COUNT & AUTO [id number] 13:14:24 Test Item Value Reference Range Interpretation [...] (BEAKER) (test code = 2801) MR, ABDOMEN, [id number] 18:24:00REFERRING : CHERELLE SALVADOR Include Abdominal VesselsCHI [facility] : 1955 Sex: [...] and large esophageal varices. Signed: Isaías Alvarez Verified Date/Time: 12/08/2021 18:24:59 CT, CHEST, WITHOUT [id number] 12:41:00REFERRING MD: CHERELLE SALVADOR Mets work up [facility] : 1955 Sex: [...] ral airways. No pleural effusion or pneumothorax. 8mm [...] groundglass right lower lobe nodule. Signed: Ankit Gaineseport Verified Date/Time: 12/08/2021 12:41:29 ALPHA FETOPROTEIN (AFP), TUMOR [id number] 17:08:44 Test Item Value Reference Range Interpretation Comments ALPHA-FETOPROTEIN (BEAKER) (test 2.3 ng/mL <10.0 code = 1094) Route [employer] Supervisor ID - DBBASIC METABOLIC [id number] 16:53:56 Test Item Value Reference Range Interpretation [...] S NOT APPLICABLE FOR DIALYSIS PATIEN TS. Route [employer] D[employer] Supervisor ID - BSSpecimen slightly ictericHEPATIC FUNCTION [id number] 16:53:56 Test Item Value Reference Range Interpretation [...] (test code = 22 U/L 6-55 347) Route [employer] D[employer] Supervisor ID - BSSpecimen slightly ictericPROTHROMBIN TIME/[id number] 16:43:33 Test Item Value Reference Range Interpretation Comments PROTIME (BEAKER) 17.0 seconds 11.9-14.2 H (test code = 759) INR (BEAKER) (test 1.40 See_Comment [Automat ed message] code = 370) The system [employer] generated this result transmitted ref erence range: <=5.90. The reference range was not used to int erpret this result as normal/abnormal . RECOMMENDED COUMADIN/WARFARIN INR THERAPY RANGESSTANDARD DOSE: 2.0 - 3.0 Includes: PROPHYLAXIS for venous thrombosis, systemic embolization; TREATMENT for venous thrombosis and/or pulmonary embolus.HIGH RISK: Target INR is 2.5-3.5 for patients with mechanical heart valves.CBC W/PLT COUNT & AUTO [id number] 16:42:35 Test Item Value Reference Range Interpretation [...] = 2801) MR, MRI, METASTATIC SURVEY/BONE MARROW [id number] 13:54:00REFERRING MD: CHERELLE SALVADOR Mets work up Reason for Exam:->hcc, cirrhosis [facility] : 1955 Sex: [...] Royal Verified Date/Time: 12/06/2021 13:54:32 Reading Location: [address] Ortho Consult Reading Room HEREDITARY [id number] 10:46:31 Test Item Value Reference Interpretation Comments Range DNA Mutation See Below RESULT: NEGATIV E Analysis Interpretation: DNA testing (test code = indicates that this individual 5612911) isnegative for the C282Y and H63D pathogenic [...] genetic disorders in in dividuals of -[place] [facility], with an estimat ed carrier frequency of [...] hogenic variants in the HFEgene, C282Y (NM 642202.2: c .845G>A, p.Oaf315Rni) an d H63D (GY983053.2: c. 187C>G, p.Stf55Yvc), th at are commonly associated with HH. [...] your local [facility] [employer] 'genetic counselor or [facility] [phone] ( ) forassistance with the interp retation of these results. This test was developed and i ts analytical performancechar acteristics have been deter mined by [employer] [facility]. It has not been cleare d or approved by[facility]. This ass ay has been validated pursu ant to the CLIA regulationsand is used for clinical purpos es. For more information, pl ease refer tohttp://educat ion.[employer])diagno [employer] [place] [employer].com/faq/h emochromatosis. (This linkis be ing provided for information al/educational purposes only.) Reviewed and signed by Liane Phillips MD, MHA , FACMG, CGMBS, Signed on 09/09 at 10:42 MADALYN (test Performing Lab code = MADALYN) [facility] [employer] [facility] [address] [place] [address] Aung Salazar MD, PhD, SANDRA [facility] HospitalHEREDITARY [id number] 10:46:31 Test Item Value Reference Interpretation Comments Range DNA Mutation See Below RESULT: NEGATIV E Analysis Interpretation: DNA testing (test code = indicates that this individual 1178304) isnegative for the C282Y and H63D pathogenic [...] clinical information rev iewed Karey Phillips MD, A, FAC, [facility]. DETAILED ASSAY INFORMATION: He reditary hemochromatosis (HH) [...] hogenic variants in the HFEgene, C282Y (NM 481313.2: c .845G>A, p.Mmb129Eoj) an d H63D (TQ525700.2: c. 187C>G, p.Mte85Gfj), th at are commonly associated with HH. [...] ca re providers, please contact your local [employer] 'genetic counselor or [facility] [phone] ( ) forassistance with the interp retation of these results. This test was developed and i ts analytical performancechar acteristics have been deter mined by [employer] [facility]. It has not been cleare d or approved byA. This ass ay has been validated pursu ant to the CLIA regulationsand is used for clinical purpos es. For more information, pl ease refer tohttp://educat ion.[employer] [place] [employer].com/faq/h emochromatosis. (This linkis be ing provided for information al/educational purposes only.) Reviewed and signed by Liane Phillips MD, MHA , FAC, CGMBS, Signed on 09/09 at 10:42 MADALYN (test Performing Lab code = MADALYN) E[employer] [facility] [address] [place] [address] Aung Salazar MD, PhD, SANDRA [facility] HospitalHEREDITARY [id number] 10:46:31 Test Item Value Reference Interpretation Comments Range DNA Mutation See Below RESULT: NEGATIV E Analysis Interpretation: DNA testing (test code = indicates that this individual 8798554) isnegative for the C282Y and H63D pathogenic [...] hogenic variants in the HFEgene, C282Y (NM 230532.2: c .845G>A, p.Iye987Tdi) an d H63D (VN271471.2: c. 187C>G, p.Ryo52Sbg), th at are commonly associated with HH. [...] your local [facility] cs'genetic counselor or [facility] [phone] ( ) forassistance with the interp retation of these results. This test was developed and i ts analytical performancechar acteristics have been deter mined by [employer] [facility]. It has not been cleare d or approved byA. This ass ay has been validated pursu ant to the CLIA regulationsand is used for clinical purpos es. For more information, pl ease refer tohttp://educat ion.[employer].com/faq/h emochromatosis. (This linkis be ing provided for information al/educational purposes only.) Reviewed and signed by Liane Phillips MD, MHA , FACMG, CGMBS, Signed on 09/09 at 10:42 AMDALYN (test Performing Lab code = MADALYN) E[employer] [facility] [address] [place] [address] Aung Salazar MD, PhD, SANDRA [facility] HospitalHEREDITARY [id number] 10:46:31 Test Item Value Reference Interpretation Comments Range DNA Mutation See Below RESULT: NEGATIV E Analysis Interpretation: DNA testing (test code = indicates that this individual 0793192) isnegative for the C282Y and H63D pathogenic [...] hogenic variants in the HFEgene, C282Y (NM 698766.2: c .845G>A, p.Wfm146Aow) an d H63D (OF888697.2: c. 187C>G, p.Rmx34Hvx), th at are commonly associated with HH. [...] ca re providers, please contact your local [employer] 'genetic counselor or [facility] [phone] ( ) forassistance with the interp retation of these results. This test was developed and i ts analytical performancechar acteristics have been deter mined by [employer] [facility] woods. It has not been cleare d or approved byCH[facility]. This ass ay has been validated pursu ant to the CLIA regulationsand is used for clinical purpos es. For more information, pl ease refer tohttp://educat ion.[employer])diagno [place] [employer].com/faq/h emochromatosis. (This linkis be ing provided for information al/educational purposes only.) Reviewed and signed by Liane Phillips MD, MHA , FACMG, CGMBS, Signed on 09/09 at 10:42 MADALYN (test Performing Lab code = MADALYN) [employer] [facility] [address] [place] [address] Aung Salazar MD, PhD, SANDRA [facility] CenterHEREDITARY [id number] 10:46:31 Test Item Value Reference Interpretation Comments Range DNA Mutation See Below RESULT: NEGATIV E Analysis Interpretation: DNA testing (test code = indicates that this individual 8680648) isnegative for the C282Y and H63D pathogenic [...] hogenic variants in the HFEgene, C282Y (NM 516368.2: c .845G>A, p.Emi248Ymz) an d H63D (NB028343.2: c. 187C>G, p.Czg04Oou), th at are commonly associated with HH. [...] ca re providers, please contact your local [employer] 'genetic counselor or [facility] [phone] ( ) forassistance with the interp retation of these results. This test was developed and i ts analytical performancechar acteristics have been deter mined by [employer] [facility] Centerleyla morales. It has not been cleare d or approved byA. This ass ay has been validated pursu ant to the CLIA regulationsand is used for clinical purpos es. For more information, pl ease refer tohttp://educat ion.[employer] [place] [employer].com/faq/h emochromatosis. (This linkis be ing provided for information al/educational purposes only.) Reviewed and signed by Liane Phillips MD, MHA , FACMG, CGMBS, Signed on 09/09 at 10:42 MADALYN (test Performing Lab code = MADALYN) EZ [employer] [facility] [address] [place] [address] Aung Salazar MD, PhD, SANDRA [facility] [id number] 10:46:31 Test Item Value Reference Interpretation Comments Range DNA Mutation See Below RESULT: NEGATIV E Analysis Interpretation: DNA testing (test code = indicates that this individual 3306777) isnegative for the C282Y and H63D pathogenic [...] hogenic variants in the HFEgene, C282Y (NM 384997.2: c .845G>A, p.Xuh237Zxe) an d H63D (MW963924.2: c. 187C>G, p.Ani23Izw), th at are commonly associated with HH. [...] your local [facility] 'genetic counselor or ca lucia [phone] ( ) forassistance with the interp retation of these results. This test was developed and i ts analytical performancechar acteristics have been deter mined by [employer] [facility] Miguelangel woods. It has not been cleare d or approved byFDA. This ass ay has been validated pursu ant to the CLIA regulationsand is used for clinical purpos es. For more information, pl ease refer tohttp://educat ion.[employer]/faq/h emochromatosis. (This linkis be ing provided for information al/educational purposes only.) Reviewed and signed by Liane Phillips MD, MHA , FACMG, CGMBS, Signed on 09/09 at 10:42 MADALYN (test Performing Lab code = MADALYN) [employer] [facility] [address] [place] [address] Aung Salazar MD, PhD, SANDRA [facility] HospitalMR, ABDOMEN, [id number] 14:51:00REFERRING MD: CHERELLE SALVADOR Include Abdominal Vessels [facility] 1955 Sex: [...] slightly increased in size Signed: Roman Mckeon [facility] Verified Date/Time: 09/01/2021 14:51:17 CT, CHEST, WITHOUT [id number] 16:16:00REFERRING MD: CHERELLE SALVADOR Mets work up [facility] : 1955 Sex: [...] MDReport Verified Date/Time: 08/31/2021 16:16:00 Reading Location: [facility] ALPHA FETOPROTEIN (AFP), TUMOR MARKER 2021-08-26 11:47:11 Test Item Value Reference Range Interpretation Comments ALPHA-FETOPROTEIN (BEAKER) (test code < ng/mL <10.0 = 1094) Route Sales Delivery Drivers Supervisor ID - BSBASIC METABOLIC [id number] 11:20:03 Test Item Value Reference Range Interpretation [...] S NOT APPLICABLE FOR DIALYSIS PATIEN TS. Route Sales Delivery Drivers Supervisor ID - KRISHNA ZAVALETAmargaritoimekaz slightly ictericHEPATIC FUNCTION [id number] 11:20:03 Test Item Value Reference Range Interpretation [...] (test code = 26 U/L 6-55 347) Route Sales Delivery Drivers Supervisor ID - KRISHNA ZAVALETAray slightly ictericPROTHROMBIN TIME/[id number] 10:58:57 Test Item Value Reference Range Interpretation Comments PROTIME (BEAKER) 17.2 seconds 11.9-14.2 H (test code = 759) INR (BEAKER) (test 1.42 See_Comment [Automat ed message] code = 370) The system [employer] generated this result transmitted ref erence range: <=5.90. The reference range was not used to int erpret this result as normal/abnormal . RECOMMENDED COUMADIN/WARFARIN INR THERAPY RANGESSTANDARD DOSE: 2.0 - 3.0 Includes: PROPHYLAXIS for venous thrombosis, systemic embolization; TREATMENT for venous thrombosis and/or pulmonary embolus.HIGH RISK: Target INR is 2.5-3.5 for patients with mechanical heart valves.CBC W/PLT COUNT & AUTO [id number] 10:56:22 Test Item Value Reference Range Interpretation [...] (BEAKER) (test code = 2801) Comprehensive metabolic [id number] 16:54:00 Test Item Value Reference Range Interpretation Comments Glucose (test code = 157 mg/dL 65-99 H Fastin g reference ) interval For so mecarmen without known diabetes, [...] See_Comment [Automate d message] (test code = 6940374) The sy stem which generated this result [...] mal. Sodium (test code = 137 mmol/L 135-061 2134529) Potassium, Serum 3.8 mmol/L 3.5-5.3 (test code = 20101014) Chloride (test code = 107 mmol/L 98-477 7910505) Carbon Dioxide, Total 22 mmol/L 20-32 (test code = ) Calcium, Serum (test 8.1 mg/dL 8.6-10.3 L code = 20100926) Protein, Total, Serum 6.0 g/dL 6.1-8.1 L (test code = 20101003) Albumin (test code = 3.0 g/dL 3.6-5.1 L ) GLOBULIN (QUEST) 3.0 See_Comment [Automated message] (test code = 3620127) The sy stem which generated this result [...] ) Lab Interpretation Abnormal (test code = 38752-9) [facility]Com[facility] [id number] 16:54:00 Test Item Value Reference Range Interpretation Comments Glucose (test code = 157 mg/dL 65-99 H Fastin g reference 2331188) interval For so meone without known diabetes, [...] See_Comment [Autom ated message] (test code = 2424610) The sy stem which generated this result transmitted ref erence range: > OR = 6 0 mL/min/1.73m2. The reference range was not used to int erpret this result as normal/abnormal . eGFR If Africn Am 121 See_Comment [Automate d message] (test code = 3483873) The sy stem which generated this result [...] mal. Sodium (test code = 137 mmol/L 135-939 8977730) Potassium, Serum 3.8 mmol/L 3.5-5.3 (test code = 20101014) Chloride (test code = 107 mmol/L 98-317 5389300) Carbon Dioxide, Total 22 mmol/L 20-32 (test code = ) Calcium, Serum (test 8.1 mg/dL 8.6-10.3 L code = 20100926) Protein, Total, Serum 6.0 g/dL 6.1-8.1 L (test code = 20101003) Albumin (test code = 3.0 g/dL 3.6-5.1 L ) GLOBULIN (QUEST) 3.0 See_Comment [Automated message] (test code = 5389404) The sy stem which generated this result [...] 1.4 mg/dL 0.2-1.2 H (test code = 9843842) Alkaline Phosphatase, 103 U/L 35-144 S (test code = 6768-6) AST (SGOT) (test code 24 U/L 10-35 = 20101009) ALT (SGPT) (test code 15 U/L 9-46 = ) Lab Interpretation Abnormal (test code = 73704-0) [facility] [id number] 16:54:00 Test Item Value Reference Range Interpretation Comments Glucose (test code = 157 mg/dL 65-99 H Fastin g reference 2323895) interval For so meone without known diabetes, [...] See_Comment [Autom ated message] (test code = 7555885) The sy stem which generated this result transmitted ref erence range: > OR = 6 0 mL/min/1.73m2. The reference range was not used to int erpret this result as normal/abnormal . eGFR If Africn Am 121 See_Comment [Automate d message] (test code = 4335307) The sy stem which generated this result transmitted ref erence range: > OR = 6 0 mL/min/1.73m2. The reference range was not used to int erpret this result as normal/abnormal . BUN/Creatinine Ratio 11 See_Comment [Autom ated message] (test code = 9361815) The sy stem which generated this result transmitted ref erence range: 6 - 22 ( calc). The reference r mela was not used to interpret this result as normal/abnor mal. Sodium (test code = 137 mmol/L 135-072 7124379) Potassium, Serum 3.8 mmol/L 3.5-5.3 (test code = 20101014) Chloride (test code = 107 mmol/L 98-305 7675065) Carbon Dioxide, Total 22 mmol/L 20-32 (test code = ) Calcium, Serum (test 8.1 mg/dL 8.6-10.3 L code = 20100926) Protein, Total, Serum 6.0 g/dL 6.1-8.1 L (test code = 20101003) Albumin (test code = 3.0 g/dL 3.6-5.1 L ) GLOBULIN (QUEST) 3.0 See_Comment [Automated message] (test code = 1084781) The sy stem which generated this result [...] ) Lab Interpretation Abnormal (test code = 95773-6) [facility] [id number] 16:54:00 Test Item Value Reference Range Interpretation Comments Glucose (test code = 157 mg/dL 65-99 H Fastin g reference 5447770) interval For so meone without known diabetes, [...] See_Comment [Autom ated message] (test code = 5631547) The sy stem which generated this result transmitted ref erence range: > OR = 6 0 mL/min/1.73m2. The reference range was not used to int erpret this result as normal/abnormal . eGFR If Africn Am 121 See_Comment [Automate d message] (test code = 4205303) The sy stem which generated this result [...] mal. Sodium (test code = 137 mmol/L 135-931 7120236) Potassium, Serum 3.8 mmol/L 3.5-5.3 (test code = 20101014) Chloride (test code = 107 mmol/L 98-999 4476697) Carbon Dioxide, Total 22 mmol/L 20-32 (test code = ) Calcium, Serum (test 8.1 mg/dL 8.6-10.3 L code = 20100926) Protein, Total, Serum 6.0 g/dL 6.1-8.1 L (test code = 20101003) Albumin (test code = 3.0 g/dL 3.6-5.1 L ) GLOBULIN (QUEST) 3.0 See_Comment [Automated message] (test code = 7421546) The sy stem which generated this result [...] 1.4 mg/dL 0.2-1.2 H (test code = 0964089) Alkaline Phosphatase, 103 U/L 35-144 S (test code = 6768-6) AST (SGOT) (test code 24 U/L 10-35 = 20101009) ALT (SGPT) (test code 15 U/L 9-46 = ) Lab Interpretation Abnormal (test code = 57927-6) [facility] [id number] 16:54:00 Test Item Value Reference Range Interpretation [...] See_Comment [Autom ated message] (test code = 9274752) The sy stem which generated this result transmitted ref erence range: > OR = 6 0 mL/min/1.73m2. The reference range was not used to int erpret this result as normal/abnormal . eGFR If Africn Am 121 See_Comment [Automate d message] (test code = 2496355) The sy stem which generated this result transmitted ref erence range: > OR = 6 0 mL/min/1.73m2. The reference range was not used to int erpret this result as normal/abnormal . BUN/Creatinine Ratio 11 See_Comment [Autom ated message] (test code = 8309607) The sy stem which generated this result transmitted ref erence range: 6 - 22 ( calc). The reference r mela was not used to interpret this result as normal/abnor mal. Sodium (test code = 137 mmol/L 135-681 2545559) Potassium, Serum 3.8 mmol/L 3.5-5.3 (test code = 20101014) Chloride (test code = 107 mmol/L 98-731 4000582) Carbon Dioxide, Total 22 mmol/L 20-32 (test code = ) Calcium, Serum (test 8.1 mg/dL 8.6-10.3 L code = 20100926) Protein, Total, Serum 6.0 g/dL 6.1-8.1 L (test code = 20101003) Albumin (test code = 3.0 g/dL 3.6-5.1 L ) GLOBULIN (QUEST) 3.0 See_Comment [Automated message] (test code = 4652146) The sy stem which generated this result [...] ) Lab Interpretation Abnormal (test code = 32709-0) [facility], [facility]OMEN, [id number] 14:52:00REFERRING : CHERELLE SALVADOR Include Abdominal Vessels [facility] : 1955 Sex: [...] stable largeparaesophageal. Patent main portal vein. Signed: Roman Mckeon Verified Date/Time: 05/03/2021 14:52:21 Reading Location: [address] Transitional Reading Room CT, CHEST, WITHOUT CONTRAST 2021-04-29 16:45:00REFERRING MD: CHERELLE SALVADOR Mets work up [facility] : 1955 Sex: [...] MDReport Verified Date/Time: 04/29/2021 16:45:28 Reading Location: [address] Body Reading Room BONE AND/OR JOINT IMAGING, WHOLE [id number] 14:33:00REFERRING MD: CHERELLE SALVADOR METS WORK [facility] : 1955 Sex: MFINAL REPORT PROCEDURE: BONE SCAN, WHOLE BODY CPT CODE: 76269 INDICATION: HCC PROTOCOL: 21.8 mCi of Tc-99m [...] there is no significant change. Signed: Tami Oweneport Verified Date/Time: 04/29/2021 14:33:51 Reading Location:[address] Reading Room Basic Metabolic [id number] 12:07:01 Test Item Value Reference Range Interpretation [...] Calcium (test code = 8.9 mg/dL 8.4-10.2 50111-4) EGFR (test code = 95 mL/min/1.73 [place] [address]-1) NOT ACCURATE CREATININE CLEARANCE IN PREDICTING GLOMERULAR FILTRATION RATE . ESTIMATED GFR I S NOT APPLICABLE FOR DIALYSIS PATIENTS. MADALYN (test code = MADALYN) Route Sales Delivery Drivers Supervisor ID - ELOY MSpecimen slightly icteric Lab Interpretation Abnormal (test code = 44030-2) [facility] HospitalHepatic function [id number] 12:07:01 Test Item Value Reference Range Interpretation Comments Protein, Total (test 7.3 See_Comment [Autom ated code = 2885-2) message] The system which generated this result transmitted reference range : 6.0 - 8.3 gm/dL . The reference range was not used to interpr et this result as normal/abnormal . Albumin (test code = 3.3 g/dL 3.5-5.0 L 87929-2) Total Bilirubin (test 1.8 mg/dL 0.2-1.2 H code = 1974-2) Bilirubin, Direct 0.8 mg/dL 0.1-0.5 H (test code = 1967-7) Alkaline Phosphatase 148 U/L 40-150 (test code = 6768-6) AST (test code = 31 U/L 5-34 1920-8) ALT (test code = 23 U/L 6-55 1742-6) MADALYN (test code = MADALYN) Route Sales Delivery Drivers Supervisor ID - ELOY MSpecimen slightly icteric Lab Interpretation Abnormal (test code = 19975-1) [facility] METABOLIC [id number] 12:07:01 Test Item Value Reference Range Interpretation [...] S NOT APPLICABLE FOR DIALYSIS PATIEN TS. Route Sales Delivery Drivers Supervisor ID - ELOY MSpecimen slightly ictericHEPATIC FUNCTION [id number] 12:07:01 Test Item Value Reference Range Interpretation [...] (test code = 23 U/L 6-55 347) Route Sales Delivery Drivers Supervisor LEOPOLDO LYONS MSpecimen slightly ictericAlpha fetoprotein (AFP), tumor [id number] 11:59:44 Test Item Value Reference Range Interpretation Comments Alpha-Fetoprotein (test 2.5 ng/mL <10.0 code = 1834-1) MADALYN (test code = MADALYN) Route Sales Delivery Drivers Supervisor LEOPOLDO LYONS M Lab Interpretation (test Normal code = 05029-9) [facility]AL[facility] FETOPROTEIN (AFP), TUMOR [id number] 11:59:44 Test Item Value Reference Range Interpretation Comments ALPHA-FETOPROTEIN (BEAKER) (test 2.5 ng/mL <10.0 code = 1094) Route Sales Delivery Drivers Supervisor LEOPOLDO LYONS MProthrombin time/[id number] 11:32:54 Test Item Value Reference Interpretation Comments Range Protime (test code = 15.7 See_Comment H [Autom ated 9502-2) message] The system which generated this result transmitted reference range : 11.9 - 14.2 seconds. The reference range was not used to interpret this result as normal/abnormal . INR (test code = 1.27 See_Comment [Automated 5361-6) message] The system which generated this result [...] valves. Lab Interpretation Abnormal (test code = 48843-4) [facility] HospitalPROTHROMBIN TIME/[id number] 11:32:54 Test Item Value Reference Range Interpretation Comments PROTIME (BEAKER) 15.7 seconds 11.9-14.2 H (test code = 759) INR (BEAKER) (test 1.27 See_Comment [Automat ed message] code = 370) The system [employer] generated this result transmitted ref erence range: <=5.90. The reference range was not used to int erpret this result as normal/abnormal . RECOMMENDED COUMADIN/WARFARIN INR THERAPY RANGESSTANDARD DOSE: 2.0 - 3.0 Includes: PROPHYLAXIS for venous thrombosis, systemic embolization; TREATMENT for venous thrombosis and/or pulmonary embolus.HIGH RISK: Target INR is 2.5-3.5 for patients with mechanical heart valves.CBC with platelet count + automated [id number] 11:25:26 Test Item Value Reference Range Interpretation Comments WBC (test code = 6690-2) 6.3 See_Comment [A utomated message] The system [employer] generated this result transmitted ref erence range: 3.5 - 10 .5 K/L. The refe rence range was not u sed to interpret this result as normal/abnor mal. RBC (test code = 789-8) 4.40 See_Comment L [Au tomated message] The system [employer] generated this result transmitted ref erence range: 4.63 - 6 .08 M/L. The refe rence range was not u sed to interpret this result as normal/abnor mal. MCHC (test code = 786-4) 29.8 See_Comment L [A utomated message] The system [employer] generated this result transmitted ref erence range: [...] = 104 See_Comment L [Aut omated message] 617-3) The system [employer] generated this result transmitted ref erence range: 150 - 45 0 K/CU MM. The referen ce range was not u sed to interpret this result as normal/abnor mal. MPV (test code = [place] [address]-2) to abnormal Pollo telet population distribution. nRBC (test code = 413) 0 See_Comment [Aut omated message] The system [employer] generated this result transmitted ref erence range: [...] See_Comment [Aut omated message] 670) The system [employer] generated this result transmitted ref erence range: 1.78 - 5 .38 K/L. The refe rence range was not u sed to interpret this result as normal/abnor mal. # Lymphs (test code = 1.92 See_Comment [Auto mated message] 414) The system [employer] generated this result transmitted ref erence range: 1.32 - 3 .57 K/L. The refe rence range was not u sed to interpret this result as normal/abnor mal. # Monos (test code = 0.60 See_Comment [Autom ated message] 415) The system [employer] generated this result transmitted ref erence range: 0.30 - 0 .82 K/L. The refe rence range was not u sed to interpret this result as normal/abnor mal. # Eos (test code = 416) 0.11 See_Comment [Au tomated message] The system [employer] generated this result transmitted ref erence range: 0.04 - 0 .54 K/L. The refe rence range was not u sed to interpret this result as normal/abnor mal. # Baso (test code = 417) 0.05 See_Comment [A utomated message] The system [employer] generated this result transmitted ref erence range: 0.01 - 0 .08 K/L. The refe rence range was not u sed to interpret this result as normal/abnor mal. Immature 0 % 0-1 Granulocytes-Relative (test code = 2801) Lab Interpretation (test Abnormal code = 18870-9) [facility] W/PLT COUNT & AUTO [id number] 11:25:26 Test Item Value Reference Range Interpretation [...] PERCENT (BEAKER) (test code = 2801) TROPONIN [id number] 19:45:34 Test Item Value Reference Interpretation Comments Range TROPONIN I (test 0.004 ng/mL See_Comment [Automated code = 6291501271) message] The system which generated this result [...] biotin. Lab Interpretation Normal (test code = 01536-1) [facility] WITH [id number] 19:42:16 Test Item Value Reference Range Interpretation Comments WBC (test code = See_Comment [Automated 8868-2) message] The sy stem which generated this result transmitted reference range : 4.20 - 10.70 10*3/?L. The reference range was not used to interpret this result as normal/abnormal . RBC (test code = See_Comment [Automated 621-8) message] The sy stem which generated this [...] (test code = 55.0 fL 38.5-51.6 H 24983-7) RDW-CV (test code = 21.7 % 12.1-15.4 H 788-0) PLT (test code = See_Comment L [Automated 777-3) message] The sy stem which generated this result transmitted reference range : 150 - 328 10*3/ ?L. The reference r mela was not used to interpret this result as normal/abnormal . MPV (test code = Not Measure d 12767-1) IPF % (test code = 3.2 % 1.2-10.7 Platelet count 9751953142) measured by fluorescence method. NRBC/100 WBC (test See_Comment [Automat ed code = 9499813181) message] The system which generated this result transmitted reference range : 0.0 - 10.0 /100 WBCs. The refer ence range was not u sed to interpret th is result as normal/abnormal . NRBC x10^3 (test code <0.01 See_Comment [Auto mated = 6090431546) message] The s ystem which generated this result transmitted reference range : 10*3/?L. The reference range was not used to interpret this result as normal/abnormal . GRAN MAT (NEUT) % 42.9 % (test code = 770-8) IMM GRAN % (test code 0.60 % = 7661689138) LYMPH % (test code = 38.0 % 736-9) MONO % (test code = 14.2 % 5905-5) EOS % (test code = 3.3 % 713-8) BASO % (test code = 1.0 % 706-2) GRAN MAT x10^3(ANC) 2.24 10*3/uL 1.99-6.95 (test code = 6786310298) IMM GRAN x10^3 (test 0.03 10*3/uL 0.00-0.06 code = 2577270928) LYMPH x10^3 (test code 1.98 10*3/uL 1.09-3.23 = 731-0) MONO x10^3 (test code 0.74 10*3/uL 0.36-1.02 = 742-7) EOS x10^3 (test code = 0.17 10*3/uL 0.06-0.53 711-2) BASO x10^3 (test code 0.05 10*3/uL 0.01-0.09 = 704-7) Lab Interpretation Abnormal (test code = 05258-4) [facility]OL[facility] PAN[facility] (47852)2021-04-01 19:34:12 Test Item Value Reference Range Interpretation Comments NA (test code = 135 mmol/L 135-145 6555881883) K (test code = 3.8 mmol/L 3.5-5.0 9516862119) CL (test code = 104 mmol/L 98-108 5364348239) CO2 TOTAL (test code = 23 mmol/L 23-31 1727769466) AGAP (test code = 2-16 3752738779) BUN (test code = 9 mg/dL 7-23 0105401830) GLUCOSE (test code = 195 mg/dL 70-110 H 4596990517) CREATININE (test code = 0.65 mg/dL 0.60-1.25 5560764963) TOTAL BILI (test code = 1.3 mg/dL 0.1-1.1 H 4010788520) CALCIUM (test code = 8.2 mg/dL 8.6-10.6 L 6554430462) T PROTEIN (test code = 6.6 g/dL 6.3-8.2 6845747506) ALBUMIN (test code = 2.9 g/dL 3.5-5.0 L 1398159253) ALK PHOS (test code = 143 U/L 34-122 H 1193379989) ALTv (test code = 28 U/L 5-50 1742-6) AST(SGOT) (test code = 47 U/L 13-40 H 1074509623) eGFR (test code = mL/min/1.73m2 6385272603) MADALYN (test code = MADALYN) Association of [...] tests). Lab Interpretation Abnormal (test code = 95490-3) [facility]ellandAMMONIA, [id number] 19:32:52 Test Item Value Reference Range Interpretation Comments AMMONIA (test code = 4080041556) 48 umol/L 9-33 H Lab Interpretation (test code = Abnormal 03207-8) [facility] LevellandPROTHROMBIN TIME / [id number] 19:01:25 Test Item Value Reference Range Interpretation Comments PROTIME PATIENT (test See_Comment H [Auto mated message] code = 5964-2) The system [employer] generated this result transmitted ref erence range: 12.0 - 1 4.7 Seconds. The reference range was not used to int erpret this result as normal/abnormal . INR (test code = 6301-6) Nor mal INR <1.1; Warfarin Therap eutic range 2.0 to 3. 0 or 2.5 to 3.5, dep ending upon the indica tions. Lab Interpretation (test Abnormal code = 43211-9) [facility]ellandANG, EMBOLIZATION, EXTENSIVE - ARTERIAL 2021-03-12 14:48:00REFERRING : CHERELLE SALVADOR For TACEReason for Exam:- >hcc, hcvCH[facility] : 1955 Sex: [...] blood loss: < 5 cc. Specimen: None. hydraulic punch press operator: Carolyn. Marble Cleaner: Dilip. Fluoroscopy Time: 14.1 min. Dose (Ka,r): [...] accessed using a micropuncture set. A 5 [place] sheath was placed. Diagnostic mesenteric angiogram was performed to access vessel patency and exclude arterio-portal shunting. A 5 [place] Anaya catheter which was used to select the celiac trunk for a DSA run. A 3 [place] microcatheter was advanced coaxially through the Anaya [...] Successful hemostasis using closure device. Signed: Marion Jaime MDReport Verified Date/Time:03/12/2021 14:48:55 Reading Location: [facility] P048 Angio Body Reading Room HEPATIC FUNCTION [...] (test code = 19 U/L 6-55 347) Route Sales Delivery Drivers Supervisor ID - EMERSONSpecimen slightly ictericBASIC METABOLIC [id number] 07:40:33 Test Item Value Reference Range Interpretation [...] S NOT APPLICABLE FOR DIALYSIS PATIEN TS. Route Sales Delivery Drivers Supervisor ID - EMERSONSpecimen slightly ictericPROTHROMBIN TIME/[id number] 07:22:36 Test Item Value Reference Range Interpretation Comments PROTIME (BEAKER) 16.9 seconds 11.9-14.2 H (test code = 759) INR (BEAKER) (test 1.40 See_Comment [Automat ed message] code = 370) The system [employer] generated this result transmitted ref erence range: <=5.90. The reference range was not used to int erpret this result as normal/abnormal . RECOMMENDED COUMADIN/WARFARIN INR THERAPY RANGESSTANDARD DOSE: 2.0 - 3.0 Includes: PROPHYLAXIS for venous thrombosis, systemic embolization; TREATMENT for venous thrombosis and/or pulmonary embolus.HIGH RISK: Target INR is 2.5-3.5 for patients with mechanical heart valves.CBC W/PLT COUNT & AUTO [id number] 07:09:25 Test Item Value Reference Range Interpretation [...] (BEAKER) (test code = 2801) BASIC METABOLIC [id number] 10:56:30 Test Item Value Reference Range Interpretation [...] S NOT APPLICABLE FOR DIALYSIS PATIEN TS. Route Sales Delivery Drivers Supervisor ID - AMADOR FSpecimen slightly ictericHEPATIC FUNCTION [...] (test code = 28 U/L 6-55 347) Route Sales Delivery Drivers Supervisor ID - AMADOR REDMONDpecimekaz slightly [id number] 10:28:14 Test Item Value Reference Range Interpretation Comments PARTIAL THROMBOPLASTIN TIME 34.9 seconds 22.5-36.0 (BEAKER) (test code = 760) PROTHROMBIN TIME/[id number] 10:27:34 Test Item Value Reference Range Interpretation Comments PROTIME (BEAKER) 17.4 seconds 11.9-14.2 H (test code = 759) INR (BEAKER) (test 1.45 See_Comment [Automat ed message] code = 370) The system [employer] generated this result transmitted ref erence range: <=5.90. The reference range was not used to int erpret this result as normal/abnormal . RECOMMENDED COUMADIN/WARFARIN INR THERAPY RANGESSTANDARD DOSE: 2.0 - 3.0 Includes: PROPHYLAXIS for venous thrombosis, systemic embolization; TREATMENT for venous thrombosis and/or pulmonary embolus.HIGH RISK: Target INR is 2.5-3.5 for patients with mechanical heart valves.CBC W/PLT COUNT & AUTO [id number] 10:14:45 Test Item Value Reference Range Interpretation [...] (BEAKER) (test code = 2801) MR, ABDOMEN, [id number] 12:00:00REFERRING : CHERELLE LEROYT Include Abdominal VesselsDOCTORS [facility]ENTERName: [facility] : 1955 Sex: [...] V (series 3, image 22) is likely energy conservation representative of a cyst, unchanged.*An 11 mm [...] thrombus. Patent main portal vein. Signed: Roman Mckeon Verified Date/Time: 01/25/2021 12:00:12 Reading Location: [address] Transitional Reading Room Hepatitis C RNA Quantitative 2021-01-22 16:10:00 Test Item Value Reference Range Interpretation Comments HCV PCR, Quantitative HCV RNA not detected HCV RNA not (test code = 65041-2) detected MADALYN (test code = MADALYN) This test uses a Real-Time Polymerase Chain Reaction (RT-PCR) methodology and was performed using KHOA Ampliprep/KHOA TaqMan HCV test kit version 2.0 ([employer]). Reportable range for this assay is 15 - 100,000,000 IU per mL (1.18 - 8.00 Log IU/mL). Lab Interpretation Normal (test code = 86036-1) [facility], [id number] 16:10:00 Test Item Value Reference Range Interpretation Comments HCV RESULT COMPONENT HCV RNA not detected HCV RNA not detected (BEAKER) (test code = 2699) This test uses a Real-Time Polymerase Chain Reaction (RT-PCR) methodology and was performed using KHOA Ampliprep/KHOA TaqMan HCV test kit version 2.0 ([employer]).Reportable range for this assay is 15 - 100,000,000 IU per mL (1.18 - 8.00 Log IU/mL).CT, CHEST, WITHOUT [id number] 15:56:00 REFERRING MD: CHERELLE SALVADOR Mets work up [facility] : 1955 Sex: [...] MDReport Verified Date/Time: 01/22/2021 15:56:37 Reading Location: [facility] Diagnostic Imaging Reading Room - [place] [address] ALPHA FETOPROTEIN (AFP), TUMOR [id number] 11:33:00 Test Item Value Reference Range Interpretation Comments ALPHA-FETOPROTEIN (BEAKER) (test 2.1 ng/mL <10.0 code = 1094) Route Sales Delivery Drivers Supervisor ID - ELOY MBASIC METABOLIC [id number] 11:23:00 Test Item Value Reference Range Interpretation [...] S NOT APPLICABLE FOR DIALYSIS PATIEN TS. Route Sales Delivery Drivers Supervisor ID - ELOY MHEPATIC FUNCTION [id number] 11:23:00 Test Item Value Reference Range Interpretation [...] (test code = 23 U/L 6-55 347) Route Sales Delivery Drivers Supervisor ID - ELOY MCBC W/PLT COUNT & AUTO [id number] 10:58:00 Test Item Value Reference Range Interpretation [...] PERCENT (BEAKER) (test code = 2801) PROTHROMBIN TIME/[id number] 10:46:00 Test Item Value Reference Range Interpretation Comments PROTIME (MADISON) 16.4 seconds 11.9-14.2 H (test code = 759) INR (MADISON) (test 1.35 See_Comment [Automat ed message] code = 370) The system [employer] generated this result transmitted ref erence range: <=5.90. The reference range was not used to int erpret this result as normal/abnormal . RECOMMENDED COUMADIN/WARFARIN INR THERAPY RANGESSTANDARD DOSE: 2.0 - 3.0 Includes: PROPHYLAXIS for venous thrombosis, systemic embolization; TREATMENT for venous thrombosis and/or pulmonary embolus.HIGH RISK: Target INR is 2.5-3.5 for patients with mechanical heart valves.ANG, EMBOLIZATION, EXTENSIVE - [id number] 08:41:00REFERRING MD: CHERELLE SALVADOR For TACEReason for Exam:->HCC, CIRRHOSIS [facility] : 1955 Sex: [...] blood loss: < 5 cc. Specimen: None. hydraulic punch press operator: Xiang Colindres MD.. Marble Cleaner: None. Fluoroscopy Time: 14.2 mi n.Reference Air Kerma (Ka, r): 1613 mGy. The skin was anesthetized with lidocaine. The right common femoral artery was accessed using a 21-gauge needle and a 0.018 inch microwire. A 4 [place] catheter was placed over the wire and a 0.035 inch wire was placed through the catheter into the abdominal aorta. A 5 [place] sheath was placed over the wire. A 5 [place] SOS-II catheter was used to select the [...] MDReport Verified Date/Time: 11/27/2020 08:41:43 BASIC METABOLIC [id number] 08:59:00 Test Item Value Reference Range Interpretation [...] S NOT APPLICABLE FOR DIALYSIS PATIEN TS. Route Sales Delivery Drivers Supervisor ID - PIAYA LSpecimen slightly ictericHEPATIC FUNCTION [id number] 08:59:00 Test Item Value Reference Range Interpretation [...] (test code = 24 U/L 6-55 347) Route Sales Delivery Drivers Supervisor ID - PIAYA LSpecdayanan slightly ictericPROTHROMBIN TIME/[id number] 08:49:00 Test Item Value Reference Range Interpretation Comments PROTIME (BEAKER) 16.7 seconds 11.9-14.2 H (test code = 759) INR (BEAKER) (test 1.37 See_Comment [Automat ed message] code = 370) The system [employer] generated this result transmitted ref erence range: <=5.90. The reference range was not used to int erpret this result as normal/abnormal . RECOMMENDED COUMADIN/WARFARIN INR THERAPY RANGESSTANDARD DOSE: 2.0 - 3.0 Includes: PROPHYLAXIS for venous thrombosis, systemic embolization; TREATMENT for venous thrombosis and/or pulmonary embolus.HIGH RISK: Target INR is 2.5-3.5 for patients with mechanical heart valves.CBC W/PLT COUNT & AUTO [id number] 08:49:00 Test Item Value Reference Range Interpretation [...] 0-1 PERCENT (BEAKER) (test code = 2801) [id number] 08:49:00 Test Item Value Reference Range Interpretation Comments PARTIAL THROMBOPLASTIN TIME 34.6 seconds 22.5-36.0 (BEAKER) (test code = 760) HEPATITIS C PCR, [id number] 19:54:00 Test Item Value Reference Range Interpretation Comments HCV RESULT COMPONENT HCV RNA not detected HCV RNA not detected (BEAKER) (test code = 2699) This test uses a Real-Time Polymerase Chain Reaction (RT-PCR) methodology and was performed using KHOA Ampliprep/KHOA TaqMan HCV test kit version 2.0 ([employer]).Reportable range for this assay is 15 - 100,000,000 IU per mL (1.18 - 8.00 Log IU/mL).BASIC METABOLIC [id number] 12:10:00 Test Item Value Reference Range Interpretation [...] S NOT APPLICABLE FOR DIALYSIS PATIEN TS. Route Sales Delivery Drivers Supervisor ID - FSEHEPATIC FUNCTION [id number] 12:10:00 Test Item Value Reference Range Interpretation [...] (test code = 26 U/L 6-55 347) Route Sales Delivery Drivers Supervisor ID - FSECBC W/PLT COUNT & AUTO [id number] 12:01:00 Test Item Value Reference Range Interpretation [...] PERCENT (BEAKER) (test code = 2801) PROTHROMBIN TIME/[id number] 11:53:00 Test Item Value Reference Range Interpretation Comments PROTIME (BEAKER) 16.3 seconds 11.9-14.2 H (test code = 759) INR (BEAKER) (test 1.35 See_Comment [Automat ed message] code = 370) The system [employer] generated this result transmitted ref erence range: [...] JOINT IMAGING, WHOLE BODY 2020-10-08 17:40:00REFERRING : CHERELLE SALVADOR [facility] : 1955 Sex: MFINAL REPORT PROCEDURE: BONE SCAN, WHOLE BODY CPT CODE: 18962 INDICATION: Hepatocellularcarcinoma PROTOCOL: 21.0 mCi of Tc-99m [...] MDReport Verified Date/Time: 10/08/2020 17:40:47 Reading Location: [address] [place], CHEST, WITHOUT [id number] 12:54:00REFERRING : CHERELLE SALVADOR [facility] : 1955 Sex: [...] subsegmental atelectasis.3. Hiatal hernia4. Cirrhosis.Signed: [facility] Verified Date/Time: 10/08/2020 12:54:21 Reading Location: [facility] C013Y CT Body Reading Room ALPHA FETOPROTEIN (AFP), TUMOR [id number] 12:52:00 Test Item Value Reference Range Interpretation Comments ALPHA-FETOPROTEIN (BEAKER) (test 2.5 ng/mL <10.0 code = 1094) Route Sales Delivery Drivers Supervisor ID - MAY [facility] METABOLIC [id number] 11:26:00 Test Item Value Reference Range Interpretation [...] S NOT APPLICABLE FOR DIALYSIS PATIEN TS. Route Sales Delivery Drivers Supervisor ID - PIAYA LHEPATIC FUNCTION [id number] 11:26:00 Test Item Value Reference Range Interpretation [...] (test code = 29 U/L 6-55 347) Route Sales Delivery Drivers Supervisor ID - PIAYA LCBC W/PLT COUNT & AUTO [id number] 11:14:00 Test Item Value Reference Range Interpretation [...] PERCENT (BEAKER) (test code = 2801) PROTHROMBIN TIME/[id number] 11:12:00 Test Item Value Reference Range Interpretation Comments PROTIME (BEAKER) 16.7 seconds 11.9-14.2 H (test code = 759) INR (BEAKER) (test 1.39 See_Comment [Automat ed message] code = 370) The system [employer] generated this result transmitted ref erence range: [...] for patients wiht mechanical heart valves.MR, ABDOMEN, [id number] 16:24:00 REFERRING MD: CHERELLE SALVADOR Include Abdominal VesselsUnlisted Reason for Exam - Click Yes and EnterReason Below->YesUnlisted Reason for Exam->awaiting organ transplant, cirrhosis, screening forcancer [facility] : 1955 Sex: [...] sized right pleural effusion Signed: Isaías Alvarez [facility] Verified Date/Time: 09/02/2020 16:24:23 ALPHA FETOPROTEIN (AFP), TUMOR [id number] 16:57:00 Test Item Value Reference Range Interpretation Comments ALPHA-FETOPROTEIN (BEAKER) (test code < ng/mL <10.0 = 1094) Route Sales Delivery Drivers Supervisor ID - BSBASIC METABOLIC [id number] 14:50:00 Test Item Value Reference Range Interpretation [...] S NOT APPLICABLE FOR DIALYSIS PATIEN TS. Route Sales Delivery Drivers Supervisor ID - EDASISpecimen slightly ictericHEPATIC FUNCTION [id number] 14:50:00 Test Item Value Reference Range Interpretation [...] (test code = 26 U/L 6-55 347) Route Sales Delivery Drivers Supervisor ID - EDASISpecimen slightly ictericCBC W/PLT COUNT & AUTO [id number] 14:45:00 Test Item Value Reference Range Interpretation [...] PERCENT (BEAKER) (test code = 2801) PROTHROMBIN TIME/[id number] 14:40:00 Test Item Value Reference Range Interpretation Comments PROTIME (BEAKER) 17.6 seconds 11.9-14.2 H (test code = 759) INR (BEAKER) (test 1.49 See_Comment [Automat ed message] code = 370) The system [employer] generated this result transmitted ref erence range: [...] for patients wiht mechanical heart valves.Chest 1 [id number] 14:03:55 Small right pleural effusion with right [...] effusion with right basilar pneumonia and/oratelectasis.RL: 7000 [facility]andTrjohn[facility] medical centereduar [id number] 13:32:55 Test Item Value Reference Range Interpretation Comments TROPONIN I (test <0.012 See_Comment [Automated code = 9034026794) message] The system which generated this result [...] ? Lab Interpretation Normal (test code = 33598-8) [facility]andN-TERMINAL [id number] 13:29:55 Test Item Value Reference Range Interpretation Comments NT-proBNP (test code 119 pg/mL See_Comment [Autom ated = 7040043397) message] The system which generated this result transmitted reference range : <=125. The reference range was not used to interpret this result as normal/abnormal . MADALYN (test code = MADALYN) Biotin has been reported to cause a negative bias, interpret results relative to patient's use of biotin. Lab Interpretation Normal (test code = 82612-5) [facility]andCOVID-19 (ID NOW RAPID TESTING)2020-08-19 13:23:14 Test Item Value Reference Range Interpretation Comments SARS-CoV-2 Rapid ID NOW Not Detected Not Detected (test code = 81030-8) MADALYN (test code = MADALYN) ID NOW COVID-19 Assay is an isothermal nucleic acid amplification test intended for the qualitative detection of nucleic acid from SARS-CoV-2 viral RNA in nasopharyngeal (BEVELING AND EDGING MACHINE OPERATOR) specimens. It is used under [...] indicated. Lab Interpretation Normal (test code = 33826-4) [facility] Metabolic Panel (NA, K, CL, CO2, GLUCOSE, BUN, CREATININE, CA)2020-08-19 13:21:13 Test Item Value Reference Range Interpretation Comments NA (test code = 135 mmol/L 135-145 0357659655) K (test code = 4.1 mmol/L 3.5-5.0 9168475848) CL (test code = 106 mmol/L 98-108 3959130613) CO2 TOTAL (test code = 24 mmol/L 23-31 1770001687) AGAP (test code = 2-16 4377228604) BUN (test code = 7 mg/dL 7-23 3843951353) GLUCOSE (test code = 216 mg/dL 70-110 H 4711475368) CREATININE (test code = 0.59 mg/dL 0.60-1.25 L 1551855876) CALCIUM (test code = 8.2 mg/dL 8.6-10.6 L 7798868175) eGFR Calculation mL/min/1.73m2 (Non-) (test code = 7669997225) eGFR Calculation mL/min/1.73m2 () (test code = 6898874802) MADALYN (test code = MADALYN) Association of [...] tests). Lab Interpretation Abnormal (test code = 01071-3) [facility]andHepatic Function Panel (ALB, T.PRO, BILI T, BU/BC, ALT, AST, ALK PHOS)2020-08-19 13:21:12 Test Item Value Reference Range Interpretation Comments TOTAL BILI (test code = 3528886884) 1.9 mg/dL 0.1-1.1 H BILI UNCON (test code = 7200117264) 1.7 mg/dL 0.1-1.1 H BILI CONJ (test code = 6417441973) 0.0 mg/dL 0.0-0.3 T PROTEIN (test code = 7771366854) 6.3 g/dL 6.3-8.2 ALBUMIN (test code = 4754713594) 3.0 g/dL 3.5-5.0 L ALK PHOS (test code = 0220205470) 162 U/L 34-122 H ALTv (test code = 1742-6) 25 U/L 5-50 AST(SGOT) (test code = 4734384939) 41 U/L 13-40 H Lab Interpretation (test code = Abnormal 89002-4) [facility]ellandLipase [id number] 13:21:12 Test Item Value Reference Range Interpretation Comments LIPASE (test code = 7923343267) 145 U/L 0-220 Lab Interpretation (test code = Normal 87782-2) [facility] with [id number] 13:17:56 Test Item Value Reference Range Interpretation [...] RDW-SD (test code = 48.3 fL 38.5-51.6 07595-8) RDW-CV (test code = 21.4 % 12.1-15.4 H 788-0) PLT (test code = See_Comment L [Automated 777-3) message] The sy stem which generated this result transmitted reference range : 150 - 328 10*3/ ?L. The reference r mela was not used to interpret this result as normal/abnormal . MPV (test code = Not Measure d 65863-5) IPF % (test code = 2.3 % 1.2-10.7 Platelet count 5619475398) measured by fluorescence method. NRBC/100 WBC (test See_Comment [Automat ed code = 6163228318) message] The system which generated this result transmitted reference range : 0.0 - 10.0 /100 WBCs. The refer ence range was not u sed to interpret th is result as normal/abnormal . NRBC x10^3 (test code <0.01 See_Comment [Auto mated = 1283257548) message] The s ystem which generated this result transmitted reference range : 10*3/?L. The reference range was not used to interpret this result as normal/abnormal . GRAN MAT (NEUT) % 56.4 % (test code = 770-8) IMM GRAN % (test code 0.20 % = 6336264543) LYMPH % (test code = 27.6 % 736-9) MONO % (test code = 10.7 % 5905-5) EOS % (test code = 3.7 % 713-8) BASO % (test code = 1.4 % 706-2) GRAN MAT x10^3(ANC) 2.47 10*3/uL 1.99-6.95 (test code = 2895030993) IMM GRAN x10^3 (test <0.03 0.00-0.06 code = 8494940529) LYMPH x10^3 (test code 1.21 10*3/uL 1.09-3.23 = 731-0) MONO x10^3 (test code 0.47 10*3/uL 0.36-1.02 = 742-7) EOS x10^3 (test code = 0.16 10*3/uL 0.06-0.53 711-2) BASO x10^3 (test code 0.06 10*3/uL 0.01-0.09 = 704-7) Lab Interpretation Abnormal (test code = 67014-9) [facility]ellandPROTHROMBIN TIME / [id number] 01:49:00 Test Item Value Reference Range Interpretation [...] tions. Lab Interpretation (test Abnormal code = 69049-7) [facility]ellandMAGNESIUM2021-01-29 01:27:00 Test Item Value Reference Range Interpretation Comments MAGNESIUM (test code = 7843343757) 1.6 mg/dL 1.7-2.4 L Lab Interpretation (test code = Abnormal 40736-1) [facility] LevellandAMMONIA, [id number] 01:26:00 Test Item Value Reference Range Interpretation Comments AMMONIA (test code = 5323811761) 37 umol/L 9-33 H Lab Interpretation (test code = Abnormal 31824-8) [facility] LevellandUrinalysis2021-01-29 00:30:00 Test Item Value Reference Range Interpretation Comments APPEARANCE (test code = Clear Clear 6816887312) COLOR (test code = Addison Yellow A 6383413270) PH (test code = 4.8-8.0 8591840888) SP GRAVITY (test code = 1.003-1.030 8902400617) GLU U QUAL (test code = Normal Normal 9019235817) BLOOD (test code = Negative Negative INTERFERE NCE FROM 1693593128) ASCORBIC ACID M AY CAUSE FALSE NEG ATIVE RESULT KETONES (test code = Negative Negative 7937859589) PROTEIN (test code = Negative Negative 2887-8) UROBILIN (test code = 4.0 mg/dL Normal A 8062033855) BILIRUBIN (test code = Negative Negative 4453805363) NITRITE (test code = Negative Negative 7789315351) LEUK KIKI (test code = Negative Negative 8222281678) RBC/HPF (test code = See_Comment [Autom ated message] 8014442366) The system [employer] generated this result transmitted ref erence range: 0 - 3 HP F. The reference range was not used to int erpret this result as normal/abnormal . WBC/HPF (test code = See_Comment [Autom ated message] 7375920178) The system [employer] generated this result transmitted ref erence range: 0 - 5 HP F. The reference range was not used to int erpret this result as normal/abnormal . BACTERIA (test code = Negative Negative 6358705074) MUCOUS (test code = Slight Negative LPF A 4024898036) SQ EPITH (test code = HPF 4727280953) CA OXALATE (test code = See_Comment [Au tomated message] 3025614852) The system [employer] generated this result transmitted ref erence range: <=1 HPF. The reference range was not used to int erpret this result as normal/abnormal . TRANS EPI (test code = <1 See_Comment [Aut omated message] 4037910061) The system [employer] generated this result transmitted ref erence range: <=1 HPF. The reference range was not used to int erpret this result as normal/abnormal . Lab Interpretation Abnormal (test code = 79187-1) [facility] 1 [id number] 00:22:38Elevation of the right hemidiaphragm of moderate [...] or pneumonia.RL: 4131 End of report [facility] [id number] 00:18:00 Test Item Value Reference Range Interpretation Comments TROPONIN I (test <0.012 See_Comment [Automated code = 1597513245) message] The system which generated this result [...] ? Lab Interpretation Normal (test code = 46516-0) [facility]andN-TERMINAL [id number] 00:15:00 Test Item Value Reference Range Interpretation Comments NT-proBNP (test code 175 pg/mL See_Comment H [Autom ated = 1995828731) message] The system which generated this result transmitted reference range : <=125. The reference range was not used to interpret this result as normal/abnormal . MADALYN (test code = MADALYN) Biotin has been reported to cause a negative bias, interpret results relative to patient's use of biotin. Lab Interpretation Abnormal (test code = 69619-0) [facility]andCOVID-19 (ID NOW RAPID TESTING)2020-06-26 00:08:00 Test Item Value Reference Range Interpretation Comments SARS-CoV-2 Rapid ID NOW Not Detected Not Detected (test code = 82794-4) MADALYN (test code = MADALYN) ID NOW COVID-19 Assay is an isothermal nucleic acid amplification test intended for the qualitative detection of nucleic acid from SARS-CoV-2 viral RNA in nasopharyngeal (BEVELING AND EDGING MACHINE OPERATOR) specimens. It is used under [...] indicated. Lab Interpretation Normal (test code = 07182-5) [facility] Metabolic Panel (NA, K, CL, CO2, GLUCOSE, BUN, CREATININE, CA)2020-06-26 00:06:00 Test Item Value Reference Range Interpretation Comments NA (test code = 137 mmol/L 135-145 3513496963) K (test code = 3.4 mmol/L 3.5-5 L 3062184215) CL (test code = 104 mmol/L 98-108 5299839818) CO2 TOTAL (test code = 26 mmol/L 23-31 9050399561) AGAP (test code = 2-16 8458837208) BUN (test code = 6 mg/dL 7-23 L 9901346514) GLUCOSE (test code = 118 mg/dL 70-110 H 5370467327) CREATININE (test code = 0.60 mg/dL 0.6-1.25 2889363189) CALCIUM (test code = 7.9 mg/dL 8.6-10.6 L 4033237905) eGFR Calculation mL/min/1.73m2 (Non-) (test code = 1393797173) eGFR Calculation mL/min/1.73m2 () (test code = 6272138508) MADALYN (test code = MADALYN) Association of [...] tests). Lab Interpretation Abnormal (test code = 09689-7) [facility]andHepatic Function Panel (ALB, T.PRO, BILI T, BU/BC, ALT, AST, ALK PHOS)2020-06-26 00:06:00 Test Item Value Reference Range Interpretation Comments TOTAL BILI (test code = 6149826402) 2.2 mg/dL 0.1-1.1 H BILI UNCON (test code = 7159571999) 1.8 mg/dL 0.1-1.1 H BILI CONJ (test code = 1925475497) 0.0 mg/dL 0-0.3 T PROTEIN (test code = 6952262651) 6.8 g/dL 6.3-8.2 ALBUMIN (test code = 9802317701) 3.1 g/dL 3.5-5 L ALK PHOS (test code = 5123432329) 162 U/L 34-122 H ALTv (test code = 1742-6) 22 U/L 5-50 AST(SGOT) (test code = 3954797113) 42 U/L 13-40 H Lab Interpretation (test code = Abnormal 21082-7) [facility]ellandLipase [id number] 00:06:00 Test Item Value Reference Range Interpretation Comments LIPASE (test code = 1652061291) 156 U/L 0-220 Lab Interpretation (test code = Normal 96060-3) [facility]ellandCBC with [id number] 00:00:00 Test Item Value Reference Range Interpretation [...] RDW-SD (test code = 49.4 fL 38.5-51.6 69573-4) RDW-CV (test code = 21.6 % 12.1-15.4 H 788-0) PLT (test code = See_Comment L [Automated 777-3) message] The sy stem which generated this result transmitted reference range : 150 - 328 10*3/ ?L. The reference r mela was not used to interpret this result as normal/abnormal . MPV (test code = Not Measure d 91183-4) IPF % (test code = 1.9 % 1.2-10.7 Platelet count 8220942518) measured by fluorescence method. NRBC/100 WBC (test See_Comment [Automat ed code = 5343927124) message] The system which generated this result transmitted reference range : 0.0 - 10.0 /100 WBCs. The refer ence range was not u sed to interpret th is result as normal/abnormal . NRBC x10^3 (test code <0.01 See_Comment [Auto mated = 2345872158) message] The s ystem which generated this result transmitted reference range : 10*3/?L. The reference range was not used to interpret this result as normal/abnormal . GRAN MAT (NEUT) % 44.8 % (test code = 770-8) IMM GRAN % (test code 0.20 % = 8911066708) LYMPH % (test code = 37.2 % 736-9) MONO % (test code = 13.6 % 5905-5) EOS % (test code = 2.7 % 713-8) BASO % (test code = 1.5 % 706-2) GRAN MAT x10^3(ANC) 2.47 10*3/uL 1.99-6.95 (test code = 2196464954) IMM GRAN x10^3 (test <0.03 0-0.06 code = 5155018255) LYMPH x10^3 (test code 2.05 10*3/uL 1.09-3.23 = 731-0) MONO x10^3 (test code 0.75 10*3/uL 0.36-1.02 = 742-7) EOS x10^3 (test code = 0.15 10*3/uL 0.06-0.53 711-2) BASO x10^3 (test code 0.08 10*3/uL 0.01-0.09 = 704-7) Lab Interpretation Abnormal (test code = 05178-1) [facility] [id number] 12:02:00 Test Item Value Reference Range Interpretation Comments SCAN RESULT (test code = 5128318) SARS-COV2/RT-PCR ([facility])2020-03-13 20:20:00 Test Item Value Reference Range Interpretation Comments SARS-COV2/RT-PCR (test Negative Not Detected, Negative, code = 1712793) See external report for linked test SARS-COV-2 PERFORMING LAB [facility] KAT (test code = 3433559) Negative result for this test determines that [...] of the Act.Fact Sheet for Healthcare Prov iders:https://www.[employer]/sites/default/files/product/documents/Fact_Sheet_HC _Oixozusbx_Bigf_ZPER-NjC-3.pdfFact Sheet for Healthcare Patients:https://www.[employer]/sites/default/files/product/docume nts/Sosw_Eujzg_Emfunaqp_Mnnc_YNAQ-ZzY-7.pdfPerforming Laboratory:[facility], [place] [address]BW, ABDOMEN, WITH 2020-03-13 14:43:00REFERRING : CHERELLE SALVADOR Include Abdominal VesselsUnlisted Reason for Exam - Click Yes and EnterReason Below- >YesUnlisted Reason for Exam->listed for liver transplant, screening for malignancyDOCTORS [facility]Name: [facility] : 1955 Sex: [...] in the liver. Spleen is enlarged measuring iqmehmfcgxvqo85.8 x 4.9 x 11.4 cm. The splenic, [...] mass.3. Trace ascites. Signed: Brenda De Dios [facility] Verified Date/Time: 03/13/2020 14:43:24 ALPHA FETOPROTEIN (AFP), TUMOR MARKER 2020-03-13 13:25:00 Test Item Value Reference Range Interpretation Comments ALPHA-FETOPROTEIN (BEAKER) (test code < ng/mL <10.0 = 1094) Route Sales Delivery Drivers Supervisor ID - AAHAMIDCOMPREHENSIVE METABOLIC [id number] 12:54:00 Test Item Value Reference Range Interpretation [...] S NOT APPLICABLE FOR DIALYSIS PATIEN TS. Route Sales Delivery Drivers Supervisor ID - AAHAMIDRAD, BONE DENSITY [id number] 12:46:00REFERRING MD: CHERELLE SALVADOR Reason for Exam:->on liver transplant waiting list [facility] : 1955 Sex: MFINAL REPORT Bone density study, 03/13/2020 Clinical History: Screening Bone mineral density measurementLumbar spine1.110 gm/tv0Mhmjpew neck0.918 gm/cm2 Standard deviation from young adultpopulation (T-score)Lumbar spine-0.9Femoral neck-1.2 Standard deviation for age adjusted population (Z-score)Lumbar spine- 1.2Femoral neck-0.7 According to medical literature, this corresponds to no incr eased risk of an osteoporotic fracture of the [...] Riveraeport Verified Date/Time: 03/13/2020 12:46:53 Reading Location: [address] Reading Room BILIRUBIN, [id number] 12:38:00 Test Item Value Reference Range Interpretation Comments BILIRUBIN DIRECT (BEAKER) (test 1.0 mg/dL 0.1-0.5 H code = 706) Route Sales Delivery Drivers Supervisor ID - AAHAMIDPROTHROMBIN TIME/[id number] 12:23:00 Test Item Value Reference Range Interpretation [...] mechanical heart valves.CBC W/PLT COUNT & AUTO [id number] 12:16:00 Test Item Value Reference Range Interpretation [...] PERCENT (BEAKER) (test code = 2801) BLOOD [id number] 20:00:00 Test Item Value Reference Range Interpretation Comments CULTURE (BEAKER) (test No growth in 5 days code = 1095) BLOOD [id number] 20:00:00 Test Item Value Reference Range Interpretation Comments CULTURE (BEAKER) (test No growth in 5 days code = 1095) POCT-GLUCOSE [id number] 07:47:00 Test Item Value Reference Range Interpretation Comments POC-GLUCOSE METER 121 mg/dL 70-110 H : TESTED A T [facility] 6720 (BEAKER) (test code = [facility], 1538) 11709: Route Sales Delivery Drivers Supervisor/Techni zaire ID = [id number] for RADHA GARVEY HEPATIC FUNCTION [id number] 07:24:00 Test Item Value Reference Range Interpretation [...] (test code = 25 U/L 6-55 347) Route Sales Delivery Drivers Supervisor ID - PIAYA LSkevinn slightly ictericPOCT-GLUCOSE [id number] 22:18:00 Test Item Value Reference Range Interpretation Comments POC-GLUCOSE METER 143 mg/dL 70-110 H : TESTED A T [facility] 6720 (BEAKER) (test code = [facility], 1538) 79216: Route Sales Delivery Drivers Supervisor/Techni zaire ID = [id number] for CA RBAJAL, ANU POCT-GLUCOSE [id number] 17:24:00 Test Item Value Reference Range Interpretation Comments POC-GLUCOSE METER 214 mg/dL 70-110 H : TESTED A T [facility] 6720 (BEAKER) (test code = [facility], 1538) 32052: Route Sales Delivery Drivers Supervisor/Techni zaire ID = [id number] for SA WADE SCHWARTZ POCT-GLUCOSE [id number] 13:32:00 Test Item Value Reference Range Interpretation Comments POC-GLUCOSE METER 127 mg/dL 70-110 H : TESTED A T [facility] 6720 (BEAKER) (test code = [facility], 1538) 29595: Route Sales Delivery Drivers Supervisor/Techni zaire ID = [id number] for SA WADE SCHWARTZ POCT-GLUCOSE [id number] 12:08:00 Test Item Value Reference Range Interpretation Comments POC-GLUCOSE METER 124 mg/dL 70-110 H : TESTED A T [facility] 6720 (BEAKER) (test code = [facility], [facility]8) 98827: Route Sales Delivery Drivers Supervisor/Techni zaire ID = [id number] for CHARI RAZO POCT-GLUCOSE [id number] 08:16:00 Test Item Value Reference Range Interpretation Comments POC-GLUCOSE METER 117 mg/dL 70-110 H : TESTED A T [facility] 6720 (BEAKER) (test code = [facility], [facility]8) 09007: Route Sales Delivery Drivers Supervisor/Techni zaire ID = [id number] for SA WADE SCHWARTZ BASIC METABOLIC [id number] 06:13:00 Test Item Value Reference Range Interpretation [...] S NOT APPLICABLE FOR DIALYSIS PATIEN TS. Route Sales Delivery Drivers Supervisor ID - PIDAMIAN LSpecimen slightly ictericHEPATIC FUNCTION [id number] 06:13:00 Test Item Value Reference Range Interpretation [...] (test code = 27 U/L 6-55 347) Route Sales Delivery Drivers Supervisor ID - KRISHNA ZAVALETApecdayanan slightly ictericPROTHROMBIN TIME/[id number] 05:46:00 Test Item Value Reference Range Interpretation [...] mechanical heart valves.CBC W/PLT COUNT & AUTO [id number] 05:21:00 Test Item Value Reference Range Interpretation [...] PERCENT (BEAKER) (test code = 2801) POCT-GLUCOSE [id number] 22:38:00 Test Item Value Reference Range Interpretation Comments POC-GLUCOSE METER 181 mg/dL 70-110 H : TESTED A T [facility] 6720 (BEAKER) (test code = [place], 1538) 87415: Route Sales Delivery Drivers Supervisor/Techni zaire ID = [id number] for RON BLANCO (CELLAVISION MANUAL DIFF)2019-12-28 15:15:00 [...] CONCENTRATION Decreased (CELLAVISION)(BEAKER) (test code = 3438) Route Sales Delivery Drivers Supervisor ID - CarterMalena Christo comments: Slide comments:CBC W/PLT COUNT & AUTO [id number] 15:11:00 Test Item Value Reference Range Interpretation [...] PERCENT (BEAKER) (test code = 2801) POCT-GLUCOSE [id number] 10:15:00 Test Item Value Reference Range Interpretation Comments POC-GLUCOSE METER 178 mg/dL 70-110 H : TESTED A T [facility] 6720 (BEAKER) (test code = [facility], 1538) 30337: Route Sales Delivery Drivers Supervisor/Techni zaire ID = [id number] for DELPHINE JUAREZ POCT-GLUCOSE [id number] 09:08:00 Test Item Value Reference Range Interpretation Comments POC-GLUCOSE METER 167 mg/dL 70-110 H : TESTED A T [facility] 6720 (BEAKER) (test code = [facility], 153) 44294: Route Sales Delivery Drivers Supervisor/Techni zaire ID = [id number] for SAMIRA COWAN BASIC METABOLIC [id number] 07:06:00 Test Item Value Reference Range Interpretation [...] S NOT APPLICABLE FOR DIALYSIS PATIEN TS. Route Sales Delivery Drivers Supervisor ID - PIDAMIAN LSpecimen slightly ictericHEPATIC FUNCTION [id number] 07:06:00 Test Item Value Reference Range Interpretation [...] (test code = 20 U/L 6-55 347) Route Sales Delivery Drivers Supervisor ID - KRISHNA LSpecimen slightly ictericPOCT-GLUCOSE [id number] 22:05:00 Test Item Value Reference Range Interpretation Comments POC-GLUCOSE METER 216 mg/dL 70-110 H : TESTED A T [facility] 6720 (BEAKER) (test code = [facility], 1538) 03989: Route Sales Delivery Drivers Supervisor/Techni zaire ID = [id number] for CH DAVE TY POCT-GLUCOSE [id number] 17:07:00 Test Item Value Reference Range Interpretation Comments POC-GLUCOSE METER 244 mg/dL 70-110 H : TESTED A T [facility] 6720 (BEAKER) (test code = [facility] [facility], 1538) 48814: Route Sales Delivery Drivers Supervisor/Techni zaire ID = [id number] for IB RAHIM, [place] CBC W/PLT COUNT & AUTO [id number] 12:15:00 Test Item Value Reference Range Interpretation [...] PERCENT (BEAKER) (test code = 2801) POCT-GLUCOSE [id number] 11:54:00 Test Item Value Reference Range Interpretation Comments POC-GLUCOSE METER 226 mg/dL 70-110 H : TESTED A T [facility] 6720 (BEAKER) (test code = [facility], 1538) 81987: Route Sales Delivery Drivers Supervisor/Techni zaire ID = [id number] for IB RAHIM, [place] BASIC METABOLIC [id number] 08:18:00 Test Item Value Reference Range Interpretation [...] S NOT APPLICABLE FOR DIALYSIS PATIEN TS. Route Sales Delivery Drivers Supervisor ID - NTPPOCT-GLUCOSE [id number] 08:07:00 Test Item Value Reference Range Interpretation Comments POC-GLUCOSE METER 166 mg/dL 70-110 H : TESTED A T [facility] 6720 (BEAKER) (test code = [facility], 1538) 48959: Route Sales Delivery Drivers Supervisor/Techni zaire ID = [id number] for IB RAHIM, [place] HEPATIC FUNCTION [id number] 05:05:00 Test Item Value Reference Range Interpretation [...] (test code = 19 U/L 6-55 347) Route Sales Delivery Drivers Supervisor ID - GABBYASISmargaritoimekaz calix ictericPOCT-GLUCOSE [id number] 17:47:00 Test Item Value Reference Range Interpretation Comments POC-GLUCOSE METER 222 mg/dL 70-110 H : TESTED A T [facility] 6720 (BEAKER) (test code = [facility], 1538) 45122: Route Sales Delivery Drivers Supervisor/Techni zaire ID = [id number] for BRAXTON MORAN POCT-GLUCOSE [id number] 12:25:00 Test Item Value Reference Range Interpretation Comments POC-GLUCOSE METER 311 mg/dL 70-110 H : TESTED A T [facility] 6720 (BEAKER) (test code = [facility], 1538) 39273: Route Sales Delivery Drivers Supervisor/Techni zaire ID = [id number] for BRAXTON MORAN POCT-GLUCOSE [id number] 07:49:00 Test Item Value Reference Range Interpretation Comments POC-GLUCOSE METER 190 mg/dL 70-110 H : TESTED A T [facility] 6720 (BEAKER) (test code = [facility], 1538) 89521: Route Sales Delivery Drivers Supervisor/Techni zaire ID = [id number] for BRAXTON MORAN VITAMIN B12 AND [id number] 06:11:00 Test Item Value Reference Range Interpretation Comments VITAMIN B12 (BEAKER) (test code = 873 pg/mL 213-816 H 774) FOLATE (BEAKER) (test code = 362) 12.30 ng/mL >=7.00 Route Sales Delivery Drivers Supervisor ID - GABBYASIBASIC METABOLIC [id number] 05:21:00 Test Item Value Reference Range Interpretation [...] S NOT APPLICABLE FOR DIALYSIS PATIEN TS. Route Sales Delivery Drivers Supervisor ID - EDASIHEPATIC FUNCTION [id number] 05:21:00 Test Item Value Reference Range Interpretation [...] (test code = 19 U/L 6-55 347) Route Sales Delivery Drivers Supervisor ID - EDASICBC W/PLT COUNT & AUTO [id number] 05:12:00 Test Item Value Reference Range Interpretation [...] PERCENT (BEAKER) (test code = 2801) PROTHROMBIN [id number] 04:56:00 Test Item Value Reference Range Interpretation [...] 2.5-3.5 for patients wiht mechanical heart valves.POCT-GLUCOSE [id number] 22:11:00 Test Item Value Reference Range Interpretation Comments POC-GLUCOSE METER 195 mg/dL 70-110 H : TESTED A T [facility] 6720 (BEAKER) (test code = [place], 1538) 06201: Route Sales Delivery Drivers Supervisor/Techni zaire ID = [id number] for SAMIRA REAL HEMOGLOBIN AND [id number] 16:15:00 Test Item Value Reference Range Interpretation Comments HEMOGLOBIN (BEAKER) (test code = 8.6 GM/DL 13.7-17.5 L 410) HEMATOCRIT (BEAKER) (test code = 30.2 % 40.1-51.0 L 411) Route Sales Delivery Drivers Supervisor ID - [id number] 13:02:00 Test Item Value Reference Range Interpretation Comments FERRITIN (BEAKER) (test code = 73.10 ng/mL 5.00-275.00 361) Route Sales Delivery Drivers Supervisor ID - EDASIIRON, TIBC, % SAT. (WITHOUT FERRITIN)2019-12-25 12:42:00 Test Item Value Reference Range Interpretation Comments IRON (BEAKER) (test code = 547) 29.0 ug/dL 40.0-160.0 L TOTAL IRON BINDING CAPACITY 151 ug/dL 250-450 L (BEAKER) (test code = 769) IRON % SATURATION (2) (BEAKER) 19 % 20-55 L (test code = 2590) Route Sales Delivery Drivers Supervisor ID - EDASICOMPREHENSIVE METABOLIC [id number] 06:44:00 Test Item Value Reference Range Interpretation [...] S NOT APPLICABLE FOR DIALYSIS PATIEN TS. Route Sales Delivery Drivers Supervisor ID - EDASICBC W/PLT COUNT & AUTO [id number] 05:55:00 Test Item Value Reference Range Interpretation [...] PERCENT (BEAKER) (test code = 2801) POCT-GLUCOSE [id number] 23:39:00 Test Item Value Reference Range Interpretation Comments POC-GLUCOSE METER 307 mg/dL 70-110 H : TESTED A T [facility] 6720 (BEAKER) (test code = [place], 1538) 95459: Route Sales Delivery Drivers Supervisor/Techni zaire ID = [id number] for Erendira Talbert (contrac t) RAD, CHEST, 1 VIEW, NON [id number] 18:52:00REFERRING : CHERELLE LIANG Reason for exam:->sobShould this be performed at [...] MDReport Verified Date/Time: 12/24/2019 18:52:34 Reading Location: [address] Consult Reading Room BASI METABOLIC PANEL [...] Specimen slightly ictericCBC W/PLT COUNT & AUTO [id number] 08:54:00 Test Item Value Reference Range Interpretation [...] (BEAKER) (test code = 2801) HEPATITIS C [id number] 12:25:00 Test Item Value Reference Range Interpretation Comments HEPATITIS C ANTIBODY (BEAKER) (test Reactive Nonreactive A code = 367) ALPHA FETOPROTEIN (AFP), TUMOR [id number] 15:45:00 Test Item Value Reference Range Interpretation Comments ALPHA-FETOPROTEIN (BEAKER) (test 2.7 ng/mL <10.0 code = 1094) BASIC METABOLIC [id number] 15:36:00 Test Item Value Reference Range Interpretation [...] DIALYSIS PATIEN TS. Specimen slightly ictericHEPATIC FUNCTION [id number] 15:35:00 Test Item Value Reference Range Interpretation [...] 21 U/L 6-55 347) Specimen slightly ictericPROTHROMBIN [id number] 15:00:00 Test Item Value Reference Range Interpretation [...] mechanical heart valves.CBC W/PLT COUNT & AUTO [id number] 14:53:00 Test Item Value Reference Range Interpretation [...] code = 2801) ALPHA FETOPROTEIN (AFP), TUMOR [id number] 14:10:00 Test Item Value Reference Range Interpretation Comments ALPHA-FETOPROTEIN (BEAKER) (test 2.7 ng/mL <10.0 code = 1094) BASIC METABOLIC [id number] 13:52:00 Test Item Value Reference Range Interpretation [...] DIALYSIS PATIEN TS. Specimen slightly ictericHEPATIC FUNCTION [id number] 13:52:00 Test Item Value Reference Range Interpretation [...] 24 U/L 6-55 347) Specimen slightly ictericPROTHROMBIN [id number] 13:49:00 Test Item Value Reference Range Interpretation [...] mechanical heart valves.CBC W/PLT COUNT & AUTO [id number] 13:35:00 Test Item Value Reference Range Interpretation [...] (test code = 2801) POCT HEMOGLOBIN A1C [id number] 21:30:00 Test Item Value Reference Range Interpretation Comments POCT HBA1C (test code = 4548-4) 7.4 % 4-6 A Lab Interpretation (test code = Abnormal 99381-8) [facility] [id number] 21:30:00 Test Item Value Reference Range Interpretation Comments POCT HBA1C (test code = 4548-4) 7.4 % 4-6 A Lab Interpretation (test code = Abnormal 32097-7) [id number] 14:59:00 Test Item Value Reference Range Interpretation Comments T4 TOTAL (BEAKER) (test code = 895) 5.7 ug/dL 4.9-11.7 [id number] 13:20:00 Test Item Value Reference Range Interpretation Comments T3 TOTAL (BEAKER) (test code = 656) 113 ng/dL 48-159 CYTOMEGALOVIRUS ANTIBODY, [id number] 11:11:00 Test Item Value Reference Range Interpretation Comments CYTOMEGALOVIRUS, IGG (BEAKER) Positive Negative, Equivocal A (test code = 3429) CMV IgG Result Interpretation: </= 0.8 Al Negative 0.9-1.0 Al Equivocal >/=1.1 Al PositiveCYTOMEGALOVIRUS ANTIBODY, [id number] 11:11:00 Test Item Value Reference Range Interpretation Comments CYTOMEGALOVIRUS IGM ANTIBODY Negative Negative, Equivocal (BEAKER) (test code = 3437) CMV IgM Result Interpretation: </= 0.8 Al Negative 0.9-1.0 Al Equivocal >/= 1.1 Al PositiveEBV ANTIBODY, [id number] 11:08:00 Test Item Value Reference Range Interpretation Comments EDENILSON TAVERAS VIRAL CAPSID Positive Negative, Equivocal A ANTIGEN IGG (BEAKER) (test code = 3415) Edenilson Taveras Viral Capsid Antigen IgG Result Interpretation: </= 0.8 Al Negative 0.9-1.0 Al Equivocal >/= 1.1 Al PositiveEBV ANTIBODY, [id number] 11:08:00 Test Item Value Reference Range Interpretation Comments EDENILSON TAVERAS VIRAL CAPSID Negative Negative, Equivocal ANTIGEN IGM (BEAKER) (test code = 3418) Edenilson Taveras Viral Capsid Antigen IgM Result Interpretation: </= 0.8 Al Negative 0.9-1.0 Al Equivocal >/= 1.1 Al PositiveVARICELLA ZOSTER ANTIBODY, [id number] 11:08:00 Test Item Value Reference Range Interpretation Comments VARICELLA ZOSTER IGG (AL) (BEAKER) > (test code = 3197) VARICELLA ZOSTER RESULT INTERPRETATIONS: <=0.8 Al Nonreactive: Presumed non- immune to VZV 0.9-1.0Al Equivocal >=1.1 Al Reactive: Presumed immune to VZV [id number]-9-[id number] 13:11:00 Test Item Value Reference Range Interpretation Comments ALPHA-1 ANTITRYPSIN (BEAKER) 155.30 mg/dL 90.00-200.00 (test code = 502) HEMOGLOBIN [id number] 13:08:00 Test Item Value Reference Range Interpretation Comments HEMOGLOBIN A1C (BEAKER) (test code = 6.4 % 4.3-6.1 H 368) HEPATITIS A ANTIBODY, [id number] 12:51:00 Test Item Value Reference Range Interpretation Comments HEPATITIS A IGG ANTIBODY (BEAKER) Reactive Nonreactive A (test code = 2797) HEPATITIS C [id number] 12:51:00 Test Item Value Reference Range Interpretation Comments HEPATITIS C ANTIBODY (BEAKER) (test Reactive Nonreactive A code = 367) [id number] 12:48:00 Test Item Value Reference Range Interpretation Comments PROSTATE SPECIFIC ANTIGEN (BEAKER) 0.4 ng/mL 0.0-4.0 (test code = 844) HIV-1 ANTIGEN WITH HIV-1/2 [id number] 12:48:00 Test Item Value Reference Range Interpretation Comments HIV-1 ANTIGEN WITH HIV 1\\T\\2 Nonreactive Nonreactive ANTIBODY (2) (BEAKER) (test code = 2586) VITAMIN D, [id number] 12:46:00 Test Item Value Reference Range Interpretation Comments VITAMIN D 25-OH (BEAKER) (test code 7.7 ng/mL 6.6-49.9 = 2764) Effective 03/08/2017: Reference Range ChangeNew: 6.6-49.9 ng/mL Previous: 13.0- 47.8 ng/mLRecommendedVitamin D Target Range: 30.0-40.0 ng/mLURINALYSIS W/ [id number] 11:55:00 Test Item Value Reference Range Interpretation [...] /LPF SOURCE(BEAKER) (test code = 2795) CRYPTOCOCCAL [id number] 11:10:00 Test Item Value Reference Range Interpretation Comments CRYPTOCOCCAL ANTIGEN, SERUM Negative Negative, Interference (BEAKER) (test code = 1828) [id number] 10:59:00 Test Item Value Reference Range Interpretation Comments THYROID STIMULATING HORMONE 2.10 uIU/mL 0.35-4.94 (BEAKER) (test code = 772) [id number] 10:59:00 Test Item Value Reference Range Interpretation Comments FERRITIN (BEAKER) (test code = 361) 69 ng/mL 5-275 [id number] 10:51:00 Test Item Value Reference Range Interpretation Comments RPR SCREEN (BEAKER) (test code = Nonreactive Nonreactive 420) [id number] 10:49:00 Test Item Value Reference Range Interpretation Comments TRANSFERRIN (BEAKER) (test code = 197 mg/dL 174-382 541) Specimen slightly [id number] 10:45:00 Test Item Value Reference Range Interpretation Comments MAGNESIUM (BEAKER) (test code = 1.5 mg/dL 1.6-2.6 L 627) [id number] 10:45:00 Test Item Value Reference Range Interpretation Comments PHOSPHORUS (BEAKER) (test code = 3.6 mg/dL 2.3-4.7 604) URIC [id number] 10:45:00 Test Item Value Reference Range Interpretation Comments URIC ACID (BEAKER) (test code = 4.8 mg/dL 2.6-7.2 773) Specimen slightly ictericCOMPREHENSIVE METABOLIC [id number] 10:45:00 Test Item Value Reference Range Interpretation [...] FOR DIALYSIS PATIEN TS. Specimen slightly ictericLIPID [id number] 10:45:00 Test Item Value Reference Range Interpretation [...] 160-189 Very High >=190 Specimen slightly ictericBILIRUBIN, [id number] 10:45:00 Test Item Value Reference Range Interpretation Comments BILIRUBIN DIRECT (BEAKER) (test 1.6 mg/dL 0.1-0.5 H code = 706) GAMMA GLUTAMYL TRANSFERASE (GGT)2018-12-20 10:45:00 Test Item Value Reference Range Interpretation Comments GAMMA GLUTAMYL TRANSFERASE (BEAKER) 33 U/L 9-64 (test code = 364) Specimen slightly [id number] 10:42:00 Test Item Value Reference Range Interpretation Comments PARTIAL THROMBOPLASTIN TIME 37.9 seconds 22.5-36.0 H (BEAKER) (test code = 760) PROTHROMBIN [id number] 10:36:00 Test Item Value Reference Range Interpretation [...] is 2.5-3.5 for patients wiht mechanical heart valves.[id number] 10:36:00 Test Item Value Reference Range Interpretation Comments ETHANOL (BEAKER) (test code = 400) < mg/dL <=10 [id number] 10:36:00 Test Item Value Reference Range Interpretation Comments FIBRINOGEN LEVEL (BEAKER) (test 207 mg/dl 225-434 L code = 658) BLOOD GAS, [id number] 10:35:00 Test Item Value Reference Range Interpretation [...] 21.0 % CBC W/PLT COUNT & AUTO [id number] 10:25:00 Test Item Value Reference Range Interpretation [...] PERCENT (BEAKER) (test code = 2801) CALCIUM, [id number] 10:20:00 Test Item Value Reference Range Interpretation Comments CALCIUM IONIZED (BEAKER) (test 1.05 mmol/L 1.12-1.27 L code = 698) PH, BLOOD (BEAKER) (test code = 7.41 1810) RAD, MANDIBLE, MIN 4 [id number] 16:56:00REFERRING MD: CHERELLE SALVADOR Reason for Exam:->pretransplant liver evaluationFINAL REPORT TECHNIQUE: Minimum four views of the mandible. INDICATION: pretransplant liver evaluation. COMPARISON: None. FINDINGS:No fracture or dislocation.No periapical lucencies.Caries of a maxillary molar, side indeterminate.Mild degenerative disc changes at C4-C5, C5-C6, andC6-C7. IMPRESSION: No periapical lucency. Caries of a maxillary molar, side indeterminate. Signed: Isaías Alvarezeport Verified Date/Time: 12/19/2018 16:56:31 Reading Location: [address] Radiology Reading Room RAD, CHEST, 2 [id number] 15:51:00REFERRING : CHERELLE SALVADOR Reason for Exam:- [...] MDReport Verified Date/Time: 12/19/2018 15:51:17 Reading Location: [facility] Mammo Reading Room MR, ABDOMEN, [id number] 14:51:00REFERRING : CHERELLE VEGAINAL REPORT TECHNIQUE: MRI of the [...] MDReport Verified Date/Time: 12/19/2018 14:51:24 Reading Location: [address] Radiology Reading Room [facility] 2018-12-06 11:12:00 Test Item Value Reference Range Interpretation Comments ETHANOL (BEAKER) (test code = 400) < mg/dL <=10 BASIC METABOLIC [id number] 10:56:00 Test Item Value Reference Range Interpretation [...] DIALYSIS PATIEN TS. Specimen moderately ictericHEPATIC FUNCTION [id number] 10:56:00 Test Item Value Reference Range Interpretation [...] 27 U/L 6-55 347) Specimen moderately ictericPROTHROMBIN TIME/[id number] 10:40:00 Test Item Value Reference Range Interpretation [...] mechanical heart valves.CBC W/PLT COUNT & AUTO [id number] 10:38:00 Test Item Value Reference Range Interpretation [...] PERCENT (BEAKER) (test code = 2801) BLOOD [id number] 08:00:00 Test Item Value Reference Range Interpretation Comments CULTURE (BEAKER) (test No growth in 5 days code = 1095) BLOOD [id number] 08:00:00 Test Item Value Reference Range Interpretation Comments CULTURE (BEAKER) (test No growth in 5 days code = 1095) BODY FLUID CULTURE + GRAM [id number] 12:20:00 Test Item Value Reference Range Interpretation Comments CULTURE (BEAKER) (test code No growth = 1095) GRAM STAIN RESULT (BEAKER) 1+ WBCs (test code = 1123) GRAM STAIN RESULT (BEAKER) No organisms seen (test code = 54281) HEPATITIS C PCR, [id number] 08:32:00 Test Item Value Reference Range Interpretation Comments HCV RESULT COMPONENT HCV RNA not detected HCV RNA not detected (BEAKER) (test code = 2699) This test uses a Real-Time Polymerase Chain Reaction (RT-PCR) methodology and was performed using [employer]KO[employer] Ampliprep/KHOA TaqMan HCV test kit version 2.0 ([employer]).Reportable range for this assay is 15 - 100,000,000 IU per mL (1.18 - 8.00 Log IU/mL).POCT-GLUCOSE [id number] 08:09:00 Test Item Value Reference Range Interpretation Comments POC-GLUCOSE METER 117 mg/dL 70-110 H TESTED AT [facility] 6720 (BEAKER) (test code = NICOLE TRUJILLO 1538) [address] CALCIUM, [id number] 05:54:00 Test Item Value Reference Range Interpretation Comments CALCIUM IONIZED (BEAKER) (test 1.01 mmol/L 1.12-1.27 L code = 698) PH, BLOOD (BEAKER) (test code = 7.45 1810) COMPREHENSIVE METABOLIC [id number] 05:07:00 Test Item Value Reference Range Interpretation [...] APPLICABLE FOR DIALYSIS PATIEN TS. Specimen slightly [id number] 05:06:00 Test Item Value Reference Range Interpretation Comments PHOSPHORUS (BEAKER) (test code = 3.3 mg/dL 2.3-4.7 604) [id number] 05:06:00 Test Item Value Reference Range Interpretation Comments MAGNESIUM (BEAKER) (test code = 1.5 mg/dL 1.6-2.6 L 627) CBC W/PLT COUNT & AUTO [id number] 04:43:00 Test Item Value Reference Range Interpretation [...] PERCENT (BEAKER) (test code = 2801) POCT-GLUCOSE [id number] 21:35:00 Test Item Value Reference Range Interpretation Comments POC-GLUCOSE METER 154 mg/dL 70-110 H TESTED AT [place] [address] ([facility]) (test code = [facility] 1538) [address] POCT-GLUCOSE [id number] 17:21:00 Test Item Value Reference Range Interpretation Comments POC-GLUCOSE METER 138 mg/dL 70-110 H TESTED AT [place] [address] ([facility]) (test code = [facility] 1538) [address] POCT-GLUCOSE [id number] 13:27:00 Test Item Value Reference Range Interpretation Comments POC-GLUCOSE METER 166 mg/dL 70-110 H TESTED AT [place] [address] ([facility]) (test code = [facility] 1538) [address] CBC W/PLT COUNT & AUTO [id number] 12:00:00 Test Item Value Reference Range Interpretation [...] 3438) Received comment: User comments: Slide comments:POCT-GLUCOSE [id number] 11:52:00 Test Item Value Reference Range Interpretation Comments POC-GLUCOSE METER 180 mg/dL 70-110 H TESTED AT [facility] 6720 (BEAKER) (test code = NICOLE [place] 1538) [address] POCT-GLUCOSE [id number] 08:09:00 Test Item Value Reference Range Interpretation Comments POC-GLUCOSE METER 115 mg/dL 70-110 H TESTED AT [facility] 6720 (BEAKER) (test code = NICOLE [place] 1538) [address] COMPREHENSIVE METABOLIC [id number] 05:59:00 Test Item Value Reference Range Interpretation [...] U/L 6-55 (test code = 347) EGFR ([facility]) (test 119 ESTIMATE D GFR IS code = 1092) mL/min/1.73 sq NOT ACCURA TE m CREATININE CLEARANCE IN PREDICTING GLOMERULAR FILTRATION RATE . ESTIMATED GFR I S NOT APPLICABLE FOR DIALYSIS PATIEN TS. Specimen slightly [id number] 05:57:00 Test Item Value Reference Range Interpretation Comments MAGNESIUM ([facility]) (test code = 1.6 mg/dL 1.6-2.6 627) POCT-GLUCOSE [id number] 22:30:00 Test Item Value Reference Range Interpretation Comments POC-GLUCOSE METER 186 mg/dL 70-110 H TESTED AT [place] [address] ([facility]) (test code = NICOLE Arita [facility] 1538) [address] POCT-GLUCOSE [id number] 18:33:00 Test Item Value Reference Range Interpretation Comments POC-GLUCOSE METER 117 mg/dL 70-110 H TESTED AT [place] [address] ([facility]) (test code = ABELCO Juan J [facility] 1538) [address] U/S, [id number] 17:34:00REFERRING MD: CHERELLE SALVADOR Please give 25g [...] 2% lidocaine anesthesia was administered. A 5 [place] catheter was advanced into the peritoneal cavityand 1300 cc of addison fluid was removed. The catheter was removed without immediate complication. Samples left with interstitial sent to the lab for analysis. IMPRESSION:Uncomplicated ultrasound-guided paracentesis with 1300 cc fluid removed. Signed: Mauricio Culleneport Verified Date/Time: 10/29/2018 17:34:00 Reading Location: [place] [id number] Ultrasound Reading Room VANCOMYCIN LEVEL, [id number] 17:22:00 Test Item Value Reference Range Interpretation Comments VANCOMYCIN TROUGH (BEAKER) (test 7.3 ug/mL 10.0-20.0 L code = 522) CBC W/PLT COUNT & AUTO [id number] 15:00:00 Test Item Value Reference Range Interpretation [...] = 2801) BODY FLUID CELL COUNT WITH [id number] 13:45:00 Test Item Value Reference Range Interpretation [...] Tube (test code = 2873) RESPIRATORY PANEL [id number] 12:27:00 Test Item Value Reference Range Interpretation [...] decisions. This sample was tested at the [facility] using the AgeCheqArray Respiratory Panel. It is FDA cleared and has been verified and approved by the [facility] for clinical use on nasopharyngeal swab specimens.The performance of the FilmArrayRP has not been established in individuals who received influenza vaccine. Recent administration of a nasal influenza vaccine may cause false positive results for Influenza A and/orInfluenza B.POCT-GLUCOSE [id number] 12:16:00 Test Item Value Reference Range Interpretation Comments POC-GLUCOSE METER 196 mg/dL 70-110 H TESTED AT [facility] 6720 (BEAKER) (test code = NICOLE [place] 1538) [address] RESPIRATORY PANEL [id number] 10:59:00 Test Item Value Reference Range Interpretation [...] decisions. This sample was tested at the [facility] using the [employer] FilmArray Respiratory Panel. It is FDA cleared and has been verified and approved by the [facility] for clinical use on nasopharyngeal swab specimens.The performance of the FilmArrayRP has not been established in individuals who received influenza vaccine. Recent administration of a nasal influenza vaccine may cause false positive results for Influenza A and/orInfluenza B.POCT-GLUCOSE [id number] 08:15:00 Test Item Value Reference Range Interpretation Comments POC-GLUCOSE METER 184 mg/dL 70-110 H TESTED AT [facility] 6783 (BEAKER) (test code = ABELMARYAN TRUJILLO 1538) [address] CBC W/PLT COUNT & AUTO [id number] 07:49:00 Test Item Value Reference Range Interpretation [...] APPLICABLE FOR DIALYSIS PATIEN TS. Specimen moderately [id number] 04:31:00 Test Item Value Reference Range Interpretation Comments MAGNESIUM (BEAKER) (test code = 1.9 mg/dL 1.6-2.6 627) LACTIC ACID, [id number] 04:18:00 Test Item Value Reference Range Interpretation Comments LACTATE BLOOD VENOUS (2) (BEAKER) 1.3 mmol/L 0.5-2.2 (test code = 2872) Specimen moderately ictericPOCT-GLUCOSE [id number] 18:00:00 Test Item Value Reference Range Interpretation Comments POC-GLUCOSE METER 121 mg/dL 70-110 H TESTED AT [facility] 6720 (BEAKER) (test code = NICOLE TRUJILLO 1538) [address] [id number] 12:39:00 Test Item Value Reference Range Interpretation Comments PROCALCITONIN (BEAKER) (test code 4.50 ng/mL <0.05 H = 3036) SEPSIS RISK (ng/mL)Low: 0.05-0.50Intermediate: 0.51-2.00High: >=2.01POCT- GLUCOSE [id number] 12:20:00 Test Item Value Reference Range Interpretation Comments POC-GLUCOSE METER 148 mg/dL 70-110 H TESTED AT [facility] 6720 (JOSE) (test code = NICOLE [place] 1538) [address] LEGIONELLA ANTIGEN, [id number] 12:13:00 Test Item Value Reference Range Interpretation Comments L. PNEUMOPHILA Negative - see Negative fo r L. SEROGP 1 UR AG comment pneumophila ([facility]) (test code serogrou p 1 antigen, = 1156) suggesting no r ecent or current infe ction with this serog roup. Legionellosis c annot be ruled out si nce other serogroup s and species may cau se disease. STREP PNEUMONIAE [id number] 12:13:00 Test Item Value Reference Range Interpretation Comments STREP PNEUMONIAE Presumptive negative Presumptive negative ANTIGEN ([facility]) for pneumococcal for pneumococcal (test code = 1615) pneumonia - see pneumonia - see comment commen Presumptive negative for pneumococcal pneumonia, suggesting no current or recent pneumococcal infection. Infection due to S. pneumoniae cannot be ruled out since the antigen present in the sample may be below the detection limit of the test. RAPID INFLUENZA A&B [id number] 12:11:00 Test Item Value Reference Range Interpretation Comments RAPID INFLUENZA A AG (AKER) Negative Negative, Inconclusive (test code = 1622) RAPID INFLUENZA B AG (BEAKER) Negative Negative, Inconclusive (test code = 1623) LACTIC ACID, [id number] 10:51:00 Test Item Value Reference Range Interpretation Comments LACTATE BLOOD VENOUS (2) (AKER) 3.0 mmol/L 0.5-2.2 H (test code = 2872) Specimen moderately ictericU/S, ABDOMINAL, [id number] 07:19:00REFERRING : CHERELLE SALVADOR Please perform with [...] MDReport Verified Date/Time: 10/28/2018 07:19:25 Reading Location: [facility] B1 C013T Transitional Reading Room RAPID DRUG SCREEN, [id number] 07:07:00 Test Item Value Reference Range Interpretation [...] situations. Chain of custody not maintained. Some bumd-rpz-wofgbzj medications, as well as adulterants, may cause inaccurate results. Clinical correlation should be applied. A more comprehensive drug screen or confirmation of a detected drug may be performed upon request.CT, BRAIN, WITHOUT [id number] 06:42:00REFERRING MD: CHERELLE FRANCISCO REPORT CT, BRAIN, [...] Verified Date/Time: 10/28/2018 06:42:47 VITAMIN B12 AND [id number] 06:21:00 Test Item Value Reference Range Interpretation Comments VITAMIN B12 (BEAKER) (test code = 719 pg/mL 213-816 774) FOLATE (BEAKER) (test code = 362) 13.7 ng/mL >=7.0 TROPONIN [id number] 06:05:00 Test Item Value Reference Range Interpretation [...] H (test code = 2590) COMPREHENSIVE METABOLIC [id number] 05:44:00 Test Item Value Reference Range Interpretation [...] APPLICABLE FOR DIALYSIS PATIEN TS. Specimen moderately [id number] 05:38:00 Test Item Value Reference Range Interpretation Comments MAGNESIUM (BEAKER) (test code = 2.3 mg/dL 1.6-2.6 627) LACTIC ACID, [id number] 05:32:00 Test Item Value Reference Range Interpretation Comments LACTATE BLOOD VENOUS 4.1 mmol/L 0.5-2.2 H Specime n slightly (2) (BEAKER) (test hemolyzed code = 8252) Specimen moderately ictericTROPONIN [id number] 02:28:00 Test Item Value Reference Range Interpretation [...] disease, and persistent tachyarrhythmia.RAD, ABDOMEN/KUB, 1 VIEW [id number] 02:04:00REFERRING MD: CHERELLE SALVADOR Reason for exam:->NG [...] Navarrete MDReport Verified Date/Time: 10/28/2018 02:04:20 HROMBIN [id number] 01:58:00 Test Item Value Reference Range Interpretation [...] mechanical heart valves.CBC W/PLT COUNT & AUTO [id number] 01:45:00 Test Item Value Reference Range Interpretation [...] User comments: Slide comments:URINALYSIS W/ REFLEX URINE [id number] 01:36:00 Test Item Value Reference Range Interpretation [...] SOURCE(BEAKER) (test code = 2795) COMPREHENSIVE METABOLIC [id number] 01:16:00 Test Item Value Reference Range Interpretation [...] APPLICABLE FOR DIALYSIS PATIEN TS. Specimen moderately [id number] 01:15:00 Test Item Value Reference Range Interpretation Comments AMMONIA (BEAKER) (test code = 348) 69 mol/L 18-72 LACTIC ACID, [id number] 01:08:00 Test Item Value Reference Range Interpretation Comments LACTATE BLOOD VENOUS (2) (BEAKER) 3.2 mmol/L 0.5-2.2 H (test code = 2872) Specimen moderately [id number] 01:08:00 Test Item Value Reference Range Interpretation Comments MAGNESIUM (BEAKER) (test code = 1.1 mg/dL 1.6-2.6 L 627) RAD, CHEST, 1 VIEW, NON [id number] 00:52:00REFERRING MD: CHERELLE SALVADOR Reason for exam:->sepsisShould [...] of an acute osseous abnormality. Signed: Alex Bahenaeport Verified Date/Time: 10/28/2018 00:52:42 Reading Location: [address] Reading Room ACTIN (SMOOTH MUSCLE) ANTIBODY, [id number] 08:28:00 Test Item Value Reference Range Interpretation Comments SCAN RESULT (test code = 6426471) [id number] 08:27:00 Test Item Value Reference Range Interpretation Comments SCAN RESULT (test code = 9827729) NILS TITER AND [id number] 09:55:00 Test Item Value Reference Range Interpretation Comments NILS TITER (BEAKER) (test code = :160 1541) NILS PATTERN (BEAKER) (test code = Speckled 1781) ANTI-NUCLEAR ANTIBODY (NILS)2018-10-05 09:54:00 Test Item Value Reference Range Interpretation Comments ANTI-NUCLEAR ANTIBODY (NILS) (BEAKER) Positive Negative A (test code = 418) Test performed by IFA method.[id number] 10:54:00 Test Item Value Reference Range Interpretation Comments FERRITIN (BEAKER) (test code = 361) 218 ng/mL 5-275 HEPATITIS A ANTIBODY, [id number] 10:18:00 Test Item Value Reference Range Interpretation Comments HEPATITIS A IGG ANTIBODY (BEAKER) Reactive Nonreactive A (test code = 2797) ALPHA FETOPROTEIN (AFP), TUMOR [id number] 10:14:00 Test Item Value Reference Range Interpretation Comments ALPHA-FETOPROTEIN (BEAKER) (test 3.5 ng/mL <10.0 code = 1094) HEPATITIS A ANTIBODY, [id number] 10:14:00 Test Item Value Reference Range Interpretation Comments HEPATITIS A IGM ANTIBODY (BEAKER) Nonreactive Nonreactive (test code = 498) HEPATITIS B CORE ANTIBODY, [id number] 10:14:00 Test Item Value Reference Range Interpretation Comments HEPATITIS B CORE TOTAL ANTIBODY Nonreactive Nonreactive (BEAKER) (test code = 497) HEPATITIS B SURFACE [id number] 09:42:00 Test Item Value Reference Range Interpretation Comments HEPATITIS B SURFACE ANTIBODY < mIU/mL <8.0 (BEAKER) (test code = 647) HEPATITIS B SURFACE [id number] 09:36:00 Test Item Value Reference Range Interpretation [...] 41 % 20-55 (test code = 2590) MVEJS-1-[id number] 09:14:00 Test Item Value Reference Range Interpretation Comments ALPHA-1 ANTITRYPSIN (BEAKER) 159.30 mg/dL 90.00-200.00 (test code = 502) COMPREHENSIVE METABOLIC [id number] 09:10:00 Test Item Value Reference Range Interpretation [...] FOR DIALYSIS PATIEN TS. Specimen slightly ictericBILIRUBIN, [id number] 09:10:00 Test Item Value Reference Range Interpretation Comments BILIRUBIN DIRECT (BEAKER) (test 1.4 mg/dL 0.1-0.5 H code = 706) PROTHROMBIN [id number] 08:38:00 Test Item Value Reference Range Interpretation [...] mechanical heart valves.CBC W/PLT COUNT & AUTO [id number] 08:35:00 Test Item Value Reference Range Interpretation [...] % 0-1 PERCENT (BEAKER) (test code = 1015)
[2023-02-17 16:07] LABS: Absolute Lymphocytes (CBC) 1.1 K/uL (0.7-4.9); Lymphocytes % 12.9 % (15.3-44.8); MCV 64.5 fL (80-100); MPV 9.1 fL (7.6-11.3); Platelets 163 thou/uL (152-406); RBC Red Blood Cell Count 6.06 M/uL (4.33-5.43)
--- NOTE | 2023-02-17 16:24 | RAD REPORT ---
EXAM DESCRIPTION: Shaina Single View02/17/2023 4:02 pm CLINICAL HISTORY: Cough COMPARISON: August 2022 FINDINGS: The lungs appear clear of acute infiltrate. The heart is borderline enlarged IMPRESSION: No acute abnormalities displayed
[2023-02-17 16:28] LABS: Albumin 3.7 g/dL (3.4-5.0); Bilirubin Direct 0.2 mg/dL (0-0.2); Bilirubin Indirect, Calculated 0.3 mg/dL (0.2-0.8); Bilirubin Total 0.5 mg/dL (0.2-1.0); Magnesium 1.9 mg/dL (1.6-2.4); Potassium 4.4 mEq/L (3.5-5.1); Protein, Total 7.2 g/dL (6.4-8.2); Troponin High Sensitivity 38.8 pg/mL (<58.9)
[2023-02-17 16:34] LABS: Blood Morphology Comment NOTED (NOT SEEN); Platelet Estimate ADEQ; White Blood Cell Scan OK (OK)
--- NOTE | 2023-02-17 17:36 | EDPHYS ---
Physician Documentation [facility] Name: Tonny Cardona Age: 67 yrs Sex: Male : 1955 Arrival Date: 02/17/2023 Time: 15:29 Bed 8 Private MD: GABBY Physician Milan Coronado HPI: 02/17 17:23 This 67 yrs old Male presents to ER via EMS with complaints of Foreign Body In cale Throat. 17:23 The patient presents with abdominal pain. Onset: The symptoms/episode began/occurred cale just prior to arrival. The patient presents to the emergency department with nausea, vomiting, that is intermittent. Onset: The symptoms/episode began/occurred just prior to arrival. Possible causes: FOOD BOLUS ESOPHAGUS. The symptoms are aggravated by nothing. Associated signs and symptoms: The patient has no apparent associated signs or symptoms. Associated signs and symptoms: Pertinent positives: nausea, vomiting. The symptoms do not radiate. Associated signs and symptoms: Pertinent positives: nausea and vomiting. Modifying factors: The symptoms are alleviated by remaining still, the symptoms are aggravated by food. Severity of pain: At its worst the pain was mild in the emergency department the pain has resolved and did so just prior to arrival, has improved. Severity of symptoms: At their worst the symptoms were moderate in the emergency department the symptoms have improved markedly. Historical: - Allergies: 15:33 Lorazepam; jl7 - PMHx: 15:33 Cirrhosis; Hypertension; diabetes mellitus; COPD; ADD/ADHD; psoriasis; jl7 - PSHx: 15:33 hernia repair; Liver transplant (17 August 2022); jl7 - Immunization history:: Adult Immunizations up to date, Client reports receiving the 2nd dose of the Covid vaccine. - Social history:: Smoking status: Patient/guardian denies using tobacco, Patient/guardian denies using alcohol. - Family history:: not pertinent. ROS: 17:23 Constitutional: Negative for fever, chills, and weight loss, Eyes: Negative for injury, cale pain, redness, and discharge, ENT: Negative for injury, pain, and discharge, Neck: Negative for injury, pain, and swelling, Cardiovascular: Negative for chest pain, palpitations, and edema, Respiratory: Negative for shortness of breath, cough, wheezing, and pleuritic chest pain, Back: Negative for injury and pain, : Negative for injury, bleeding, discharge, and swelling, MS/Extremity: Negative for injury and deformity, Skin: Negative for injury, rash, and discoloration, Neuro: Negative for headache, weakness, numbness, tingling, and seizure, Psych: Negative for depression, anxiety, suicide ideation, homicidal ideation, and hallucinations, Allergy/Immunology: Negative for hives, rash, and allergies, Endocrine: Negative for neck swelling, polydipsia, polyuria, polyphagia, and marked weight changes, Hematologic/Lymphatic: Negative for swollen nodes, abnormal bleeding, and unusual bruising, 17:23 Abdomen/GI: Positive for nausea and vomiting, Exam: 17:23 Constitutional: This is a well developed, well nourished patient who is awake, alert, cale and in no acute distress. Head/Face: Normocephalic, atraumatic. Eyes: Pupils equal round and reactive to light, extra-ocular motions intact. Lids and lashes normal. Conjunctiva and sclera are non-icteric and not injected. Cornea within normal limits. Periorbital areas with no swelling, redness, or edema. ENT: Nares patent. No nasal discharge, no septal abnormalities noted. Tympanic membranes are normal and external auditory canals are clear. Oropharynx with no redness, swelling, or masses, exudates, or evidence of obstruction, uvula midline. Mucous membranes moist. Neck: Trachea midline, no thyromegaly or masses palpated, and no cervical lymphadenopathy. Supple, full range of motion without nuchal rigidity, or vertebral point tenderness. No Meningismus. Chest/axilla: Normal chest wall appearance and motion. Nontender with no deformity. No lesions are appreciated. Cardiovascular: Regular rate and rhythm with a normal S1 and S2. No gallops, murmurs, or rubs. Normal PMI, no JVD. No pulse deficits. Respiratory: Lungs have equal breath sounds bilaterally, clear to auscultation and percussion. No rales, rhonchi or wheezes noted. No increased work of breathing, no retractions or nasal flaring. Abdomen/GI: Soft, non-tender, with normal bowel sounds. No distension or tympany. No guarding or rebound. No evidence of tenderness throughout. Back: No spinal tenderness. No costovertebral tenderness. Full range of motion. Male : Normal genitalia with no discharge or lesions. Skin: Warm, dry with normal turgor. Normal color with no rashes, no lesions, and no evidence of cellulitis. MS/ Extremity: Pulses equal, no cyanosis. Neurovascular intact. Full, normal range of motion. Neuro: Awake and alert, GCS 15, oriented to person, place, time, and situation. Cranial nerves II-XII grossly intact. Motor strength 5/5 in all extremities. Sensory grossly intact. Cerebellar exam normal. Normal gait. Psych: Awake, alert, with orientation to person, place and time. Behavior, mood, and affect are within normal limits. 17:23 ECG was reviewed by the Attending Physician. Vital Signs: 15:32 BP 126 / 93; Pulse 89; Resp 18; Temp 98; Pulse Ox 99% on R/A; jl7 15:32 Weight 102.06 kg; Height 5 ft. 10 in. ; Pain 0/10; jl7 15:58 BP 134 / 73; Pulse 92; Resp 18; Pulse Ox 97% on R/A; ld1 15:32 Body Mass Index 32.28 (102.06 kg, 177.8 cm) jl7 15:32 Pain Scale: Adult jl7 MDM: 15:33 Patient medically screened. [facility] 17:29 Differential diagnosis: Nonspecific abd pain, gastritis, viral gastroenteritis, cale gastroenteritis, bowel obstruction, gastritis, gastroesophageal reflux disease, non-specific abd pain, pancreatitis, Peptic Ulcer Disease. Data reviewed: vital signs, nurses notes, lab test result(s), EKG, radiologic studies. Consideration of Admission/Observation Escalation of care including admission/observation considered. I considered the following discharge prescriptions or medication management in the emergency department Medications were administered in the Emergency Department. See MAR. Independent interpretation of the following test(s) in the Emergency Department EKG: See my EKG interpretation above. Test considered but Not performed: CT: NO CT CHEST. Historians other than the Patient: EMS: EMS WELL INFORMED. Care significantly affected by the following chronic conditions: Hypertension, Chronic Obstructive Pulmonary Disease, Obesity, Liver Disease, PSORIASIS. 02/17 15:34 Order name: Basic Metabolic Panel; Complete Time: 17:18 [facility] 02/17 15:34 Order name: CBC with Diff; Complete Time: 17:18 [facility] 02/17 15:34 Order name: LFT's; Complete Time: 17:18 [facility] 02/17 15:34 Order name: Magnesium; Complete Time: 17:18 [facility] 02/17 15:34 Order name: NT PRO-BNP; Complete Time: 17:18 [facility] 02/17 15:34 Order name: Troponin HS; Complete Time: 17:18 [facility] 02/17 16:13 Order name: CBC Smear Scan; Complete Time: 17:18 EDMS 02/17 15:34 Order name: XRAY Chest (1 view); Complete Time: 17:18 [facility] 02/17 15:34 Order name: EKG; Complete Time: 15:35 [facility] 02/17 15:34 Order name: Cardiac monitoring; Complete Time: 15:42 [facility] 02/17 15:34 Order name: EKG - Nurse/Tech; Complete Time: 15:42 [facility] 02/17 15:34 Order name: IV Saline Lock; Complete Time: 15:47 [facility] 02/17 15:34 Order name: Labs collected and sent; Complete Time: 15:47 [facility] 02/17 15:34 Order name: O2 Per Protocol; Complete Time: 15:35 [facility] 02/17 15:34 Order name: O2 Sat Monitoring; Complete Time: 15:35 [facility] 02/17 17:18 Order name: PO challenge; Complete Time: 17:23 [facility] EC:23 Rate is 84 beats/min. Rhythm is regular. QRS [place] is Normal. [place] interval is normal. QRS cale interval is normal. QT interval is normal. No Q waves. T waves are Normal. No ST changes noted. Clinical impression: NSR w/ Non-specific ST/T Changes and No evidence of ischemia. Interpreted by me. Reviewed by me. Administered Medications: 15:47 Drug: NS 0.9% IV 500 ml IV at bolus once Route: IV; Rate: bolus; Site: right jl7 antecubital; Disposition Summary: 02/17/23 17:36 Discharge Ordered Notes: Location: Home cale Problem: new cale Symptoms: have improved cale Condition: Stable cale Diagnosis - Food in esophagus - RESOLVED, PASSED cale Followup: cale - With: Private Physician - When: 2 - 3 days - Reason: Recheck today's complaints, Continuance of care, Re-evaluation by your physician Followup: cale - With: Beto Angeles MD - When: 2 - 3 days - Reason: Recheck today's complaints, Continuance of care, Re-evaluation by your physician Discharge Instructions: - Discharge Summary Sheet cale - Esophageal Stricture cale - Esophageal Rings and Webs cale Forms: - Medication Reconciliation Form cale - Thank You Letter cale - Antibiotic Education cale - Prescription Opioid Use cale - Patient Portal Instructions cale - Leadership Thank You Letter cale Prescriptions: - Pepcid 20 mg Oral tablet - take 1 tablet ORAL route every 12 hours for 21 days; 42 tablet; Refills: 0, cale Product Selection Permitted Signatures: Dispatcher [employer] Milan Beard MD MD cha Leal, Jahala RN RN jl7
--- NOTE | 2023-02-17 17:36 | ER ---
Nurse's Notes [facility] Name: Tonny Cardona Age: 67 yrs Sex: Male : 1955 Arrival Date: 02/17/2023 Time: 15:29 Bed 8 Private MD: Diagnosis: Food in esophagus-RESOLVED, PASSED Presentation: 02/17 15:32 Chief complaint: EMS states: toned out to patient home for possible food bolus stuck in jl7 throat. Pt reports eating big pieces of ham - "I feel like it has not gone down yet.". Coronavirus screen: At this time, the client does not indicate any symptoms associated with coronavirus-19. Ebola Screen: No symptoms or risks identified at this time. Initial Sepsis Screen: Does the patient meet any 2 criteria? No. Patient's initial sepsis screen is negative. Does the patient have a suspected source of infection? No. Patient's initial sepsis screen is negative. Risk Assessment: Do you want to hurt yourself or someone else? Patient reports no desire to harm self or others. Onset of symptoms was February 17, 2023. 15:32 Method Of Arrival: EMS: [facility] 7 15:32 Acuity: FAIZA 2 jl7 Triage Assessment: 15:33 General: Appears in no apparent distress. comfortable, Behavior is calm, cooperative, jl7 appropriate for age. Pain: Denies pain. EENT: No signs and/or symptoms were reported regarding the EENT system. EENT: Reports difficulty swallowing. Neuro: Level of Consciousness is awake, alert, obeys commands, Oriented to person, place, time, situation. Cardiovascular: Capillary refill < 3 seconds Patient's skin is warm and dry. Rhythm is sinus rhythm. Respiratory: Airway is patent Respiratory effort is even, unlabored. GI: Abdomen is round non-distended. : No signs and/or symptoms were reported regarding the genitourinary system. Derm: No signs and/or symptoms reported regarding the dermatologic system. Musculoskeletal: No signs and/or symptoms reported regarding the musculoskeletal system. Historical: - Allergies: 15:33 Lorazepam; jl7 - PMHx: 15:33 Cirrhosis; Hypertension; diabetes mellitus; COPD; ADD/ADHD; psoriasis; jl7 - PSHx: 15:33 hernia repair; Liver transplant (17 August 2022); jl7 - Immunization history:: Adult Immunizations up to date, Client reports receiving the 2nd dose of the Covid vaccine. - Social history:: Smoking status: Patient/guardian denies using tobacco, Patient/guardian denies using alcohol. - Family history:: not pertinent. Screenin:35 [facility] ED Fall Risk Assessment (Adult) History of falling in the last 3 months, jl7 including since admission No falls in past 3 months (0 pts). Abuse screen: Denies threats or abuse. Denies injuries from another. Nutritional screening: No deficits noted. Tuberculosis screening: No symptoms or risk factors identified. Assessment: 15:35 Reassessment: See triage assessment. jl7 15:58 Reassessment: Patient appears in no apparent distress at this time. No changes from ld1 previously documented assessment. Patient and/or family updated on plan of care and expected duration. Pain level reassessed. Patient is alert, oriented x 3, equal unlabored respirations, skin warm/dry/pink. Vital Signs: 15:32 BP 126 / 93; Pulse 89; Resp 18; Temp 98; Pulse Ox 99% on R/A; jl7 15:32 Weight 102.06 kg; Height 5 ft. 10 in. ; Pain 0/10; jl7 15:58 BP 134 / 73; Pulse 92; Resp 18; Pulse Ox 97% on R/A; ld1 15:32 Body Mass Index 32.28 (102.06 kg, 177.8 cm) jl7 15:32 Pain Scale: Adult jl7 ED Course: 15:32 Patient arrived in ED. jl7 15:33 Triage completed. jl7 15:33 Milan Coronado MD is Attending Physician. [facility] 15:33 Arm band placed on right wrist. jl7 15:35 Patient has correct armband on for positive identification. Placed in gown. Bed in low jl7 position. Call light in reach. Side rails up X2. panel monitor on. Pulse ox on. NIBP on. Door closed. Noise minimized. Warm blanket given. 15:35 No provider procedures requiring assistance completed. jl7 15:46 Denise Patterson RN is Primary Nurse. jl7 15:47 Inserted saline lock: 20 gauge in right antecubital area, using aseptic technique. jl7 Blood collected. 15:59 Primary Nurse role handed off by Denise Patterson RN ld1 15:59 Luisa Lyles, RN is Primary Nurse. ld1 16:04 XRAY Chest (1 view) In Process Unspecified. EDMS 17:34 Beto Angeles MD is Referral Physician. cale 17:50 IV discontinued, intact, bleeding controlled, No redness/swelling at site. Pressure mb9 dressing applied. Administered Medications: 15:47 Drug: NS 0.9% IV 500 ml IV at bolus once Route: IV; Rate: bolus; Site: right jl7 antecubital; Outcome: 17:36 Discharge ordered by MD. cale 17:51 Discharged to home ambulatory, mb9 17:51 Condition: stable 17:51 Discharge instructions given to patient, Instructed on discharge instructions, follow up and referral plans. Demonstrated understanding of instructions, follow-up care, medications, Prescriptions given X 1, 17:51 Patient left the ED. mb9 Signatures: Dispatcher [employer] EDMS Milan Coronado MD MD cha Leal, Jahala, RN RN jl7 Luisa Lyles, RN RN ld1 Marta Denise, RN RN mb9
[2023-02-17 17:56] VITALS: TEMP 98
[2023-02-17 17:58] VITALS: BP 134/73; O2SAT 97
--- NOTE | 2023-02-20 12:37 | EKG ---
Test Date: 2023-02-17 Test Time: 15:40:12 Chief Gauger: Isael SI MEASUREMENT RESULTS: Intervals: Rate: 84 OR: 150 QRSD: 80 QT: 362 QTc: 427 Adamant: P: 38 OR: 150 QRS: -70 T: 1 INTERPRETIVE STATEMENTS: Normal sinus rhythm Left anterior fascicular block Inferior infarct, age undetermined Abnormal ECG Compared to ECG 09/05/2022 14:27:45 Myocardial infarct finding now present Atrial premature complex(es) no longer present Electronically Signed On 02-20-23 12:32:27 CDT by Fazal Wright
== END 2023-02-17 17:51 | disposition home or self-care (01) ==
LOC: ER 15:29
DX: T18.128A Food in esophagus causing other injury, initial encounter (principal); I10 Essential (primary) hypertension; E11.9 Type 2 diabetes mellitus without complications; J44.9 Chronic obstructive pulmonary disease, unspecified; Z94.4 Liver transplant status; Z88.5 Allergy status to narcotic agent
CPT/HCPCS: 85025; 80048; 36415; 83735; 80076; 84484; 83880; 71045; 99285; J7040; 93005

== ENCOUNTER 2023-08-24 10:27 | Emergency (ER) | payer OTHER, MEDICARE ==
[2023-08-24 11:27] LABS: Specific Gravity > 1.030 (1.005-1.030); Sqamous Epithelial <5 /HPF (None Seen); Urine Bacteria None Seen /HPF (<20); Urine Bilirubin NEGATIVE (Negative); Urine Blood Negative (Negative); Urine Clarity Clear (Clear); Urine Color Light-Yellow (Yellow); Urine Culture Reflex Order NOT NEEDED; Urine Glucose 4+ (Over) (Negative); Urine Ketones NEGATIVE (Negative); Urine Micro Reflex YN NO BILL MICROSCOPIC; Urine Nitrite NEGATIVE (Negative); Urine Protein NEGATIVE (Negative); Urine RBC <5 /HPF (None Seen); Urine Urobilinogen Normal (Normal); Urine WBC None Seen /HPF (<5); Urine pH 5.5 (5.0-7.0)
[2023-08-24 11:28] LABS: Absolute Eosinophils 0.1 K/uL (0-0.5); Absolute Lymphocytes (CBC) 1.2 K/uL (0.7-4.9); Absolute Neutrophil 12.8 K/uL (1.8-8.0); Basophils % 0.3 % (0-1.3); Eosinophils % 0.5 % (0-4.4); Hematocrit 41.3 % (39.6-49.0); Hemoglobin 12.8 g/dL (13.6-17.9); MCH 22.4 pg (27.0-35.0); MCHC 30.9 g/dL (32.0-36.0); MCV 72.5 fL (80-100); MPV 9.4 fL (7.6-11.3); Monocytes % 6.4 % (3.3-12.3); Neutrophils % 84.8 % (41.7-73.7); Nucleated Red Blood Cells % 0.1 % (0-0); Platelets 160 thou/uL (152-406); Red Cell Distribution Width 18.1 % (12.1-15.2)
[2023-08-24 11:30] LABS: Albumin 3.2 g/dL (3.4-5.0); Anion Gap 9.8 mEq/L (5.0-15.0); Bilirubin Total 0.5 mg/dL (0.2-1.0); Globulin 3.1 g/dL (2.3-3.5); Potassium 3.8 mEq/L (3.5-5.1); Protein, Total 6.3 g/dL (6.4-8.2)
[2023-08-24 12:38] LABS: White Blood Cell Scan OK (OK)
[2023-08-24 12:39] LABS: Blood Morphology Comment NOT SEEN (NOT SEEN); Platelet Estimate ADEQ
--- NOTE | 2023-08-24 14:03 | EDPHYS ---
Physician Documentation [facility] Name: Tonny Cardona Age: 67 yrs Sex: Male : 1955 Arrival Date: 08/24/2023 Time: 10:27 Bed 16 Private MD: ED Physician Mushtaq Joya HPI: 08/23 14:51 This 67 yrs old Male presents to ER via EMS with complaints of Urinary rt Retention. 14:51 Patient presents to the ED with urinary retention. Patient states that he has not been rt able to urinate since last night. The patient reports having increasing nocturnal frequency, incomplete emptying of bladder. Reports lower abdominal discomfort. Denies other acute complaints, symptoms are moderate in severity, no other aggravating or alleviating factors.. Historical: - Allergies: 10:34 Lorazepam; iw - PMHx: 10:34 ADD/ADHD; Cirrhosis; COPD; COPD; diabetes mellitus; diabetes mellitus; Hypertension; iw psoriasis; - PSHx: 10:34 hernia repair; Liver transplant (17 August 2022); iw - Immunization history:: Adult Immunizations up to date. - Social history:: Smoking status: unknown. - Family history:: not pertinent. ROS: 14:51 Constitutional: Negative for fever, chills, and weight loss, Eyes: Negative for injury, rt pain, redness, and discharge, Cardiovascular: Negative for chest pain, palpitations, and edema, Respiratory: Negative for shortness of breath, cough, wheezing, and pleuritic chest pain, Skin: Negative for injury, rash, and discoloration, Neuro: Negative for headache, weakness, numbness, tingling, and seizure, 14:51 : Positive for Urinary retention, negative for dysuria, Exam: 14:51 Constitutional: This is a well developed, well nourished patient who is awake, alert, rt and in no acute distress. Head/Face: Normocephalic, atraumatic. Chest/axilla: Normal chest wall appearance and motion. Nontender with no deformity. No lesions are appreciated. Cardiovascular: Regular rate and rhythm with a normal S1 and S2. No gallops, murmurs, or rubs. Normal PMI, no JVD. No pulse deficits. Respiratory: Lungs have equal breath sounds bilaterally, clear to auscultation and percussion. No rales, rhonchi or wheezes noted. No increased work of breathing, no retractions or nasal flaring. Skin: Warm, dry with normal turgor. Normal color with no rashes, no lesions, and no evidence of cellulitis. MS/ Extremity: Pulses equal, no cyanosis. Neurovascular intact. Full, normal range of motion. Neuro: Awake and alert, GCS 15, oriented to person, place, time, and situation. Cranial nerves II-XII grossly intact. Motor strength 5/5 in all extremities. Sensory grossly intact. Cerebellar exam normal. Normal gait. 14:51 Abdomen/GI: Fullness, tenderness in suprapubic region, no rebound, guarding, Vital Signs: 10:46 BP 104 / 69; Pulse 69; Resp 19; Temp 97.5; Pulse Ox 98% ; Weight 107.05 kg; Height 5 iw ft. 6 in. ; 12:08 BP 150 / 88; Pulse 91; Resp 16; Pulse Ox 97% on R/A; me1 13:00 BP 170 / 90; Pulse 84; Resp 16; Pulse Ox 97% on R/A; me1 14:00 BP 166 / 85; Pulse 95; Resp 16; Pulse Ox 99% on R/A; me1 10:46 Body Mass Index 38.09 (107.05 kg, 167.64 cm) iw MDM: 10:31 Patient medically screened. rt 14:51 Differential Diagnosis Urinary retention, BPH, hematuria, UTI. Data reviewed: vital rt signs, nurses notes, lab test result(s). Test considered but Not performed: CT: Symptoms resolved with Sepulveda catheter placement, CT scan is not indicated.. Care significantly affected by the following chronic conditions: Diabetes. Counseling: I had a detailed discussion with the patient and/or guardian regarding the historical points, exam findings, and any diagnostic results supporting the discharge/admit diagnosis, lab results, the need for outpatient follow up, to return to the emergency department if symptoms worsen or persist or if there are any questions or concerns that arise at home. 08/23 10:32 Order name: CBC with Diff; Complete Time: 12:42 rt 08/23 10:32 Order name: CMP; Complete Time: 12:42 rt 08/23 10:32 Order name: UAM; Complete Time: 11:32 rt 08/23 11:35 Order name: CBC Smear Scan; Complete Time: 12:42 EDMS 08/23 14:12 Order name: Glucose, Ancillary Testing; Complete Time: 14:13 EDMS 08/23 10:32 Order name: Sepulveda; Complete Time: 10:46 rt 08/23 12:57 Order name: Leg Bag; Complete Time: 14:01 rt 08/23 12:57 Order name: Accucheck; Complete Time: 14:01 rt Administered Medications: 12:51 Drug: NS 0.9% IV 1000 ml IV at 1 bolus Per protocol; 1000 mL bolus Route: IV; Rate: 1 me1 bolus; Site: left antecubital; 14:39 Follow up: Response: No adverse reaction; IV Status: Completed infusion; IV Intake: me1 1000ml Point of Care Testing: Blood Glucose: 14:01 Blood Glucose: 301 mg/dL; me1 Ranges: Critical Glucose Levels:Adult <50 mg/dl or >400 mg/dl <40 mg/dl or >180 mg/dl Disposition Summary: 08/24/23 14:03 Discharge Ordered Notes: Location: Home rt Problem: new rt Symptoms: have improved rt Condition: Stable rt Diagnosis - Urinary retention rt Followup: rt - With: Jose Enrique Cherry MD - When: 5 - 6 days - Reason: Discharge Instructions: - Discharge Summary Sheet rt - Hyperglycemia rt - Acute Urinary Retention, Male rt Forms: - Medication Reconciliation Form rt - Thank You Letter rt - Antibiotic Education rt - Prescription Opioid Use rt - Patient Portal Instructions rt - Leadership Thank You Letter rt Prescriptions: - tamsulosin 0.4 mg Oral capsule - take 1 capsule ORAL route every 24 hours; 30 capsule; Refills: 0, Product rt Selection Permitted Signatures: Dispatcher [employer] Angela Cuello, RN DIANE iw Mushtaq Joya MD MD rt Alison Dumont RN RN me1
--- NOTE | 2023-08-24 14:03 | ER ---
Nurse's Notes [facility] Name: Tonny Cardona Age: 67 yrs Sex: Male : 1955 Arrival Date: 08/24/2023 Time: 10:27 Bed 16 Private MD: Diagnosis: Urinary retention Presentation: 08/23 10:32 Chief complaint: EMS states: UNABLE TO PASS URINE, LAST URINATED AN HOUR AGO BUT ONLY A iw SMALL AMOUNT. Coronavirus screen: At this time, the client does not indicate any symptoms associated with coronavirus-19. Onset of symptoms was August 24, 2023. Care prior to arrival: IV initiated. 20 GA, in the left antecubital area, Glucose check: 371. 10:49 Ebola Screen: Patient negative for fever greater than or equal to 101.5 degrees iw Fahrenheit, and additional compatible Ebola Virus Disease symptoms Patient denies exposure to infectious person. Patient denies travel to an Ebola-affected area in the 21 days before illness onset. No symptoms or risks identified at this time. Initial Sepsis Screen: Does the patient meet any 2 criteria? No. Patient's initial sepsis screen is negative. Does the patient have a suspected source of infection? No. Patient's initial sepsis screen is negative. Risk Assessment: Do you want to hurt yourself or someone else? Patient reports no desire to harm self or others. 10:49 Acuity: FAIZA 3 iw 10:49 Method Of Arrival: EMS iw Historical: - Allergies: 10:34 Lorazepam; iw - PMHx: 10:34 ADD/ADHD; Cirrhosis; COPD; COPD; diabetes mellitus; diabetes mellitus; Hypertension; iw psoriasis; - PSHx: 10:34 hernia repair; Liver transplant (17 August 2022); iw - Immunization history:: Adult Immunizations up to date. - Social history:: Smoking status: unknown. - Family history:: not pertinent. Screenin:15 [facility] ED Fall Risk Assessment (Adult) History of falling in the last 3 months, me1 including since admission No falls in past 3 months (0 pts) Confusion or Disorientation No (0 pts) Intoxicated or Sedated No (0 pts) Impaired Gait No (0 pts) Mobility Assist Device Used No (0 pt) Altered Elimination No (0 pt) Score/Fall Risk Level 0 - 2 = Low Risk Maintained a safe environment, Provided non-skid footwear, Hourly rounding (assess needs \T\ fall precautionary measures) done. 12:26 Abuse screen: Denies threats or abuse. Denies injuries from another. Nutritional iw screening: No deficits noted. Tuberculosis screening: No symptoms or risk factors identified. Assessment: 10:45 General: Appears in no apparent distress. Behavior is calm, cooperative. Pain: iw Complains of pain in abdomen. Neuro: Level of Consciousness is awake, alert, obeys commands, Oriented to person, place, time, situation. Cardiovascular: Patient's skin is warm and dry. Respiratory: Respiratory effort is even, unlabored, Respiratory pattern is regular. : Reports inability to void, since last night pain in suprapubic area. Derm: Skin is normal. Musculoskeletal: Range of motion: intact in all extremities. 12:15 General: Appears comfortable, Behavior is calm, cooperative, appropriate for age. Pain: me1 Denies pain. Neuro: Level of Consciousness is awake, alert, obeys commands, Oriented to person, place, time, situation. Cardiovascular: Patient's skin is warm and dry. Respiratory: Respiratory effort is even, unlabored, Respiratory pattern is regular, symmetrical. : Covarrubias in place to gravity drainage. Derm: Skin is pink, warm \T\ dry. Musculoskeletal: No signs and/or symptoms reported regarding the musculoskeletal system. Vital Signs: 10:46 BP 104 / 69; Pulse 69; Resp 19; Temp 97.5; Pulse Ox 98% ; Weight 107.05 kg; Height 5 iw ft. 6 in. ; 12:08 BP 150 / 88; Pulse 91; Resp 16; Pulse Ox 97% on R/A; me1 13:00 BP 170 / 90; Pulse 84; Resp 16; Pulse Ox 97% on R/A; me1 14:00 BP 166 / 85; Pulse 95; Resp 16; Pulse Ox 99% on R/A; me1 10:46 Body Mass Index 38.09 (107.05 kg, 167.64 cm) iw ED Course: 10:30 Patient arrived in ED. aa5 10:31 Mushtaq Joya MD is Attending Physician. rt 10:32 Angela Allen, RN is Primary Nurse. iw 10:50 Triage completed. iw 10:50 Covarrubias cath inserted, using sterile technique, 16 Fr., returned clear yellow urine. iw Patient tolerated well. 11:50 Provided Education on: covarrubias cath. iw 12:10 Maintain EMS IV. Dressing intact. Good blood return noted. Site clean \T\ dry. Gauge \T\ iw site: 20 LAC. 12:11 Patient has correct armband on for positive identification. iw 12:15 No provider procedures requiring assistance completed. me1 14:02 Jose Enrique Cherry MD is Referral Physician. rt 14:27 Patient placed in an exam room. me1 14:32 IV discontinued, intact, bleeding controlled, No redness/swelling at site. Pressure me1 dressing applied. Administered Medications: 12:51 Drug: NS 0.9% IV 1000 ml IV at 1 bolus Per protocol; 1000 mL bolus Route: IV; Rate: 1 me1 bolus; Site: left antecubital; 14:39 Follow up: Response: No adverse reaction; IV Status: Completed infusion; IV Intake: me1 1000ml Medication: 12:15 VIS not applicable for this client. me1 Point of Care Testing: Blood Glucose: 14:01 Blood Glucose: 301 mg/dL; me1 Ranges: Intake: 14:39 IV: 1000ml; Total: 1000ml. me1 Outcome: 14:03 Discharge ordered by MD. rt 14:32 Discharged to home via wheelchair, me1 14:32 Condition: stable 14:32 Discharge instructions given to patient, Instructed on discharge instructions, follow up and referral plans. medication usage, Demonstrated understanding of instructions, follow-up care, medications, Prescriptions given X 1, 14:43 Patient left the ED. me1 Signatures: Angela Allen RN RN iw Aimee Trinidad RN RN aa5 Mushtaq Joya MD MD rt Alison Dumont RN RN me1 Corrections: (The following items were deleted from the chart) 12:15 10:46 Resp 19bpm; Pulse Ox 98%; Temp 97.5F; 107.05 kg; Height 5 ft. 6 in.; BMI: 38.0; iwiw
[2023-08-24 15:13] VITALS: BP 166/85; TEMP 97.5; O2SAT 99
== END 2023-08-24 14:43 | disposition home or self-care (01) ==
LOC: ER 10:27
DX: R33.9 Retention of urine, unspecified (principal); R10.32 Left lower quadrant pain; Z94.4 Liver transplant status; Z88.8 Allergy status to other drugs, medicaments and biological substances
CPT/HCPCS: 36415; 51702; 80053; 81001; 82947; 85025; 96360; 96361; 99284

== ENCOUNTER 2023-08-24 16:57 | Emergency (ER) | payer OTHER, MEDICARE ==
--- NOTE | 2023-08-24 18:37 | ER ---
Nurse's Notes [facility] Name: Tonny Cardona Age: 67 yrs Sex: Male : 1955 Arrival Date: 08/24/2023 Time: 16:57 Bed DX2 Private MD: Bebeto Harley Diagnosis: Mechanical complication of urinary (indwelling) catheter;Displacement of urinary (indwelling) catheter;Other mechanical complication of urinary (indwelling) catheter Presentation: 08/23 17:51 Chief complaint: Patient states: came this morning, had catheter placed, hit something ko1 and broke the bag. Coronavirus screen: At this time, the client does not indicate any symptoms associated with coronavirus-19. Ebola Screen: No symptoms or risks identified at this time. Initial Sepsis Screen: Does the patient meet any 2 criteria? No. Patient's initial sepsis screen is negative. Does the patient have a suspected source of infection? No. Patient's initial sepsis screen is negative. Risk Assessment: Do you want to hurt yourself or someone else? Patient reports no desire to harm self or others. Onset of symptoms was August 24, 2023. 17:51 Method Of Arrival: Wheelchair ko1 17:51 Acuity: AFIZA 4 ko1 Triage Assessment: 17:53 General: Appears in no apparent distress. Behavior is calm, cooperative, appropriate ko1 for age. Pain: Denies pain. Historical: - Allergies: 17:53 Lorazepam; ko1 - PMHx: 17:53 ADD/ADHD; Cirrhosis; COPD; diabetes mellitus; Hypertension; psoriasis; ko1 - PSHx: 17:53 hernia repair; Liver transplant (17 August 2022); ko1 - Immunization history:: Adult Immunizations unknown. - Social history:: Smoking status: Patient denies any tobacco usage or history of. - Family history:: not pertinent. Screenin:56 [facility] ED Fall Risk Assessment (Adult) History of falling in the last 3 months, rs5 including since admission No falls in past 3 months (0 pts) Confusion or Disorientation No (0 pts) Intoxicated or Sedated No (0 pts) Impaired Gait No (0 pts) Mobility Assist Device Used No (0 pt) Altered Elimination No (0 pt) Score/Fall Risk Level 0 - 2 = Low Risk Oriented to surroundings, Maintained a safe environment. 17:56 Abuse screen: Denies threats or abuse. Nutritional screening: No deficits noted. rs5 Tuberculosis screening: No symptoms or risk factors identified. Assessment: 18:00 General: Appears in no apparent distress. comfortable, Behavior is calm, cooperative. rs5 18:05 Pain: Denies pain. rs5 18:05 Neuro: Level of Consciousness is awake, alert, obeys commands, Oriented to person, rs5 place, time, situation. Cardiovascular: Patient's skin is warm and dry. Respiratory: Respiratory effort is even, unlabored, Respiratory pattern is regular, symmetrical. GI: Abdomen is round non-distended. : Reports "The cather bag tube got caught in something and it fell out" pt denies burning with urination, pain, or blood in urine. EENT: No signs and/or symptoms were reported regarding the EENT system. Derm: Skin is pink, warm \\T\\ dry. Musculoskeletal: Range of motion: intact in all extremities. 18:40 Reassessment: 16ff covarrubias inserted using aseptic technique, pt tolerated procedure well, rs5 100cc clear yellow urine noted in urine bag. Urine bag switched to leg bag per md orders. 19:15 Reassessment: No changes from previously documented assessment. rs5 Vital Signs: 17:55 BP 158 / 78; Pulse 84; Resp 15; Temp 98; Pulse Ox 98% ; ko1 19:15 BP 150 / 80; Pulse 77; Resp 18; Pulse Ox 99% on R/A; rs5 ED Course: 17:01 Patient arrived in ED. rg4 17:01 Bebeto Harley MD is Private Physician. rg4 17:22 Milan Coronado MD is Attending Physician. cale 17:53 Triage completed. ko1 17:53 Arm band placed on right wrist. Patient placed in waiting room, in a wheelchair, ko1 Patient notified of wait time. 17:56 Patient has correct armband on for positive identification. Placed in gown. Bed in low rs5 position. Call light in reach. Side rails up X2. 17:56 No provider procedures requiring assistance completed. rs5 18:23 Mathew Ayon, DIANE is Primary Nurse. rs5 18:36 Bebeto Harley MD is Referral Physician. cale 18:36 Jose Enrique Cherry MD is Referral Physician. cale 19:15 Patient did not have IV access during this emergency room visit. rs5 Administered Medications: 19:00 Drug: Ciprofloxacin PO 500 mg PO once Route: PO; rs5 19:16 Follow up: Response: No adverse reaction rs5 19:16 Not Given (Patient Refused): [id number] mg PO once rs5 Medication: 18:31 VIS not applicable for this client. rs5 Outcome: 18:36 Discharge ordered by . cale 19:15 Discharged to home ambulatory, rs5 19:15 Condition: stable 19:15 Discharge instructions given to patient, family, Instructed on discharge instructions, follow up and referral plans. medication usage, Demonstrated understanding of instructions, follow-up care, medications, Prescriptions given X 1, 19:16 Patient left the ED. rs5 Signatures: Milan Coronado MD MD cha Garcia, Rubi rg4 Ling Martinez, RN RN ko1 Mathew Ayon, DIANE RN rs5
--- NOTE | 2023-08-24 18:37 | EDPHYS ---
Physician Documentation [facility] Name: Tonny Cardona Age: 67 yrs Sex: Male : 1955 Arrival Date: 08/24/2023 Time: 16:57 Bed DX2 Private MD: Bebeto Harley ED Physician Milan Coronado HPI: 08/23 18:33 This 67 yrs old Male presents to ER via Wheelchair with complaints of Problem cale With Urinary Catheter. 18:33 The patient presents with a Sepulveda catheter problem, BAG AND TUBING ACCIDENTALLY PULLED cale OUT. Onset: The symptoms/episode began/occurred just prior to arrival. Modifying factors: The symptoms are alleviated by nothing, the symptoms are aggravated by nothing. Associated signs and symptoms: The patient has no apparent associated signs or symptoms. Severity of symptoms: At their worst the symptoms were mild, in the emergency department the symptoms are unchanged. The patient has not experienced similar symptoms in the past. Historical: - Allergies: 17:53 Lorazepam; ko1 - PMHx: 17:53 ADD/ADHD; Cirrhosis; COPD; diabetes mellitus; Hypertension; psoriasis; ko1 - PSHx: 17:53 hernia repair; Liver transplant (17 August 2022); ko1 - Immunization history:: Adult Immunizations unknown. - Social history:: Smoking status: Patient denies any tobacco usage or history of. - Family history:: not pertinent. ROS: 18:33 Constitutional: Negative for fever, chills, and weight loss, Eyes: Negative for injury, cale pain, redness, and discharge, ENT: Negative for injury, pain, and discharge, Neck: Negative for injury, pain, and swelling, Cardiovascular: Negative for chest pain, palpitations, and edema, Respiratory: Negative for shortness of breath, cough, wheezing, and pleuritic chest pain, Abdomen/GI: Negative for abdominal pain, nausea, vomiting, diarrhea, and constipation, Back: Negative for injury and pain, MS/Extremity: Negative for injury and deformity, Skin: Negative for injury, rash, and discoloration, Neuro: Negative for headache, weakness, numbness, tingling, and seizure, Psych: Negative for depression, anxiety, suicide ideation, homicidal ideation, and hallucinations, Allergy/Immunology: Negative for hives, rash, and allergies, Endocrine: Negative for neck swelling, polydipsia, polyuria, polyphagia, and marked weight changes, Hematologic/Lymphatic: Negative for swollen nodes, abnormal bleeding, and unusual bruising, 18:33 : Positive for urinary symptoms, difficulty urinating, Exam: 18:33 Constitutional: This is a well developed, well nourished patient who is awake, alert, cale and in no acute distress. Head/Face: Normocephalic, atraumatic. Eyes: Pupils equal round and reactive to light, extra-ocular motions intact. Lids and lashes normal. Conjunctiva and sclera are non-icteric and not injected. Cornea within normal limits. Periorbital areas with no swelling, redness, or edema. ENT: Nares patent. No nasal discharge, no septal abnormalities noted. Tympanic membranes are normal and external auditory canals are clear. Oropharynx with no redness, swelling, or masses, exudates, or evidence of obstruction, uvula midline. Mucous membranes moist. Neck: Trachea midline, no thyromegaly or masses palpated, and no cervical lymphadenopathy. Supple, full range of motion without nuchal rigidity, or vertebral point tenderness. No Meningismus. Chest/axilla: Normal chest wall appearance and motion. Nontender with no deformity. No lesions are appreciated. Cardiovascular: Regular rate and rhythm with a normal S1 and S2. No gallops, murmurs, or rubs. Normal PMI, no JVD. No pulse deficits. Respiratory: Lungs have equal breath sounds bilaterally, clear to auscultation and percussion. No rales, rhonchi or wheezes noted. No increased work of breathing, no retractions or nasal flaring. Abdomen/GI: Soft, non-tender, with normal bowel sounds. No distension or tympany. No guarding or rebound. No evidence of tenderness throughout. Back: No spinal tenderness. No costovertebral tenderness. Full range of motion. Male : Normal genitalia with no discharge or lesions. Skin: Warm, dry with normal turgor. Normal color with no rashes, no lesions, and no evidence of cellulitis. MS/ Extremity: Pulses equal, no cyanosis. Neurovascular intact. Full, normal range of motion. Neuro: Awake and alert, GCS 15, oriented to person, place, time, and situation. Cranial nerves II-XII grossly intact. Motor strength 5/5 in all extremities. Sensory grossly intact. Cerebellar exam normal. Normal gait. Psych: Awake, alert, with orientation to person, place and time. Behavior, mood, and affect are within normal limits. Vital Signs: 17:55 BP 158 / 78; Pulse 84; Resp 15; Temp 98; Pulse Ox 98% ; ko1 19:15 BP 150 / 80; Pulse 77; Resp 18; Pulse Ox 99% on R/A; rs5 MDM: 17:22 Patient medically screened. cale 18:35 Differential diagnosis: nonspecific abdominal pain, UTI, urinary retention, Sepulveda cale catheter problem, prostatitis, urethritis. Data reviewed: vital signs, nurses notes. Consideration of Admission/Observation Escalation of care including admission/observation considered. I considered the following discharge prescriptions or medication management in the emergency department Medications were administered in the Emergency Department. See MAR. Test considered but Not performed: Labs: NO LABS DONE. Historians other than the Patient: PT WELL INFORMED. Care significantly affected by the following chronic conditions: Diabetes, Hypertension, Chronic Obstructive Pulmonary Disease, Obesity, Liver Disease. 08/23 18:33 Order name: Sepulveda; Complete Time: 19:16 cale 08/23 18:33 Order name: Leg Bag; Complete Time: 19:16 cale Administered Medications: 19:00 Drug: Ciprofloxacin PO 500 mg PO once Route: PO; rs5 19:16 Follow up: Response: No adverse reaction rs5 19:16 Not Given (Patient Refused): [id number] mg PO once rs5 Disposition Summary: 08/24/23 18:36 Discharge Ordered Notes: Location: Home cale Problem: new cale Symptoms: have improved cale Condition: Stable cale Diagnosis - Mechanical complication of urinary (indwelling) catheter cale - Displacement of urinary (indwelling) catheter cale - Other mechanical complication of urinary (indwelling) catheter cale Followup: cale - With: Bebeto Harley MD - When: 2 - 3 days - Reason: Recheck today's complaints, Continuance of care, Re-evaluation by your physician Followup: cale - With: Jose Enrique Cherry MD - When: 2 - 3 days - Reason: Recheck today's complaints, Continuance of care, Re-evaluation by your physician Discharge Instructions: - Discharge Summary Sheet cale - Indwelling Urinary Catheter Care, Adult cale - Indwelling Urinary Catheter Care, Adult, [id number] cale Forms: - Medication Reconciliation Form cale - Thank You Letter cale - Antibiotic Education cale - Prescription Opioid Use cale - Patient Portal Instructions cale - Leadership Thank You Letter cale Prescriptions: - Cipro 250 mg Oral tablet - take 1 tablet ORAL route every 12 hours; 14 tablet; Refills: 0, Product [facility] Selection Permitted - Pyridium 200 mg Oral Tablet - take 1 tablet ORAL route every 8 hours for 3 days; 9 tablet; Refills: 0, [facility] Product Selection Permitted Signatures: Dispatcher [employer] Milan Beard MD MD cha Oliver, Kathy, RN RN ko1 Mathew Ayon RN RN rs5
[2023-08-24] MEDS ORDERED: CIPROFLOXACIN HCL 500 MG TAB ONE (18:55)
[2023-08-24 20:00] VITALS: BP 150/80; TEMP 98; O2SAT 99
== END 2023-08-24 19:16 | disposition home or self-care (01) ==
LOC: ER 16:57
PROC: 0T2BX0Z Change Drainage Device in Bladder, External Approach (ICD-10-PCS; principal; 2023-08-24)
DX: T83.028A Displacement of other urinary catheter, initial encounter (principal); Z88.8 Allergy status to other drugs, medicaments and biological substances
CPT/HCPCS: 99283

== ENCOUNTER 2023-08-30 10:58 | Emergency (ER) | payer OTHER, MEDICARE ==
--- NOTE | 2023-08-30 12:26 | ER ---
Nurse's Notes [facility] Name: Tonny Cardona Age: 67 yrs Sex: Male : 1955 Arrival Date: 08/30/2023 Time: 10:58 Bed 9 Private MD: Diagnosis: Sepulveda Catheter Problem;Penile pain Presentation: 08/29 11:06 Chief complaint: Patient states: "I was told to come here in 2 days to get my catheter mb9 removed. The catheter is causing my pain and I don't want it anymore". Coronavirus screen: At this time, the client does not indicate any symptoms associated with coronavirus-19. Ebola Screen: No symptoms or risks identified at this time. Initial Sepsis Screen: Does the patient meet any 2 criteria? No. Patient's initial sepsis screen is negative. Does the patient have a suspected source of infection? No. Patient's initial sepsis screen is negative. Risk Assessment: Do you want to hurt yourself or someone else? Patient reports no desire to harm self or others. Onset of symptoms was August 30, 2023. 11:06 Method Of Arrival: Ambulatory mb9 11:06 Acuity: FAIZA 4 mb9 Triage Assessment: 11:07 General: Appears in no apparent distress. Behavior is calm, cooperative. Pain: Denies mb9 pain. EENT: No signs and/or symptoms were reported regarding the EENT system. Neuro: [place] Agitation-Sedation Scale (RASS): 0 - Alert and Calm Level of Consciousness is awake, alert, obeys commands, Oriented to person, place, time, situation, Appropriate for age. Cardiovascular: Patient's skin is warm and dry. Respiratory: Airway is patent Respiratory effort is even, unlabored, Respiratory pattern is regular, symmetrical. GI: No signs and/or symptoms were reported involving the gastrointestinal system. : Sepulveda in place to gravity drainage. Derm: Skin is pink, warm \\T\\ dry. Musculoskeletal: Range of motion: intact in all extremities. Historical: - Allergies: 11:07 Lorazepam; mb9 - PMHx: 11:07 ADD/ADHD; Cirrhosis; COPD; diabetes mellitus; Hypertension; psoriasis; mb9 - PSHx: 11:07 hernia repair; Liver transplant (17 August 2022); mb9 - Immunization history:: Adult Immunizations up to date. - Infectious Disease History:: Denies. - Social history:: Smoking status: Patient denies any tobacco usage or history of. Screenin:16 Abuse screen: Denies threats or abuse. Nutritional screening: No deficits noted. ap3 Tuberculosis screening: No symptoms or risk factors identified. 12:46 [facility] ED Fall Risk Assessment (Adult) History of falling in the last 3 months, ap3 including since admission No falls in past 3 months (0 pts) Confusion or Disorientation No (0 pts) Intoxicated or Sedated No (0 pts) Impaired Gait No (0 pts) Mobility Assist Device Used No (0 pt) Altered Elimination No (0 pt) Score/Fall Risk Level 0 - 2 = Low Risk Oriented to surroundings, Maintained a safe environment, Educated pt \\T\\ family on fall prevention, incl call for assistance when getting out of bed, Assessed \\T\\ reinforced patient's understanding of fall precautions, Provided non-skid footwear, Hourly rounding (assess needs \\T\\ fall precautionary measures) done, Used ambulatory aids as needed (educated on \\T\\ assisted with), Used gait belt as appropriate. Assessment: 11:16 Pain: Complains of pain in meatus. Neuro: Level of Consciousness is awake, alert, obeys ap3 commands, Oriented to person, place, time, situation. Cardiovascular: Patient's skin is warm and dry. Respiratory: Airway is patent Respiratory effort is even, unlabored, Respiratory pattern is regular, symmetrical. : Sepulveda in place to gravity drainage. 12:21 Reassessment: patient urinated via urinal. provider notified. ap3 Vital Signs: 11:06 BP 144 / 91; Pulse 87; Resp 18; Temp 98.2; Pulse Ox 97% ; Weight 104.33 kg; Height 5 mb9 ft. 6 in. ; 12:44 BP 132 / 87; Pulse 78; Resp 18; Temp 97.7; Pulse Ox 98% on R/A; ap3 11:06 Body Mass Index 37.12 (104.33 kg, 167.64 cm) mb9 ED Course: 11:02 Patient arrived in ED. mg5 11:06 Robert Lyles DO is Attending Physician. ms3 11:06 Arm band placed on. mb9 11:07 Triage completed. mb9 11:15 Robyn Foster, DIANE is Primary Nurse. ap3 11:15 Patient tolerated well. Sepulveda cath removed intact, balloon deflated. ap3 11:17 Patient has correct armband on for positive identification. Bed in low position. Call ap3 light in reach. Side rails up X 1. 12:25 Jose Enrique Cherry MD is Referral Physician. ms3 12:43 No provider procedures requiring assistance completed. Patient did not have IV access ap3 during this emergency room visit. 12:44 Provided Education on: [facility]. ap3 Administered Medications: No medications were administered Medication: 11:17 VIS not applicable for this client. ap3 Outcome: 12:25 Discharge ordered by . ms3 12:45 Discharged to home ap3 12:45 Condition: good 12:45 Discharge instructions given to patient, Instructed on discharge instructions, follow up and referral plans. 12:47 Patient left the ED. ap3 Signatures: Robyn Foster, RN RN ap3 Robert Lyles DO DO ms3 Marta Denise RN RN mb9 Sheryl Sofia mg5
--- NOTE | 2023-08-30 12:26 | EDPHYS ---
Physician Documentation [facility] Name: Tonny Cardona Age: 67 yrs Sex: Male : 1955 Arrival Date: 08/30/2023 Time: 10:58 Bed 9 Private MD: ED Physician Robert Lyels HPI: 08/29 11:12 This 67 yrs old Male presents to ER via Ambulatory with complaints of Problem ms3 With Urinary Catheter. 11:12 67-year-old male with past medical history of ADD/ADHD, cirrhosis, COPD, diabetes, ms3 hypertension, psoriasis presents to the emergency department for Covarrubias catheter discomfort. Patient states he was seen on Monday and a Covarrubias catheter was placed due to urinary retention. Patient states he has been unable to sleep and the catheter is uncomfortable and he would like it removed.. Historical: - Allergies: 11: Lorazepam; mb9 - PMHx: 11:07 ADD/ADHD; Cirrhosis; COPD; diabetes mellitus; Hypertension; psoriasis; mb9 - PSHx: 11:07 hernia repair; Liver transplant (17 August 2022); mb9 - Immunization history:: Adult Immunizations up to date. - Infectious Disease History:: Denies. - Social history:: Smoking status: Patient denies any tobacco usage or history of. ROS: 11:12 Constitutional: Negative for fever, and chills. Neck: Negative for injury, pain, and ms3 swelling, Cardiovascular: Negative for chest pain, and palpitations. Respiratory: Negative for shortness of breath, cough, wheezing, and pleuritic chest pain, Abdomen/GI: Negative for abdominal pain, nausea, vomiting, diarrhea, and constipation, 11:12 : Positive for Covarrubias catheter pain, Exam: 11:12 Constitutional: This is a well developed, well nourished patient who is awake, alert, ms3 and in no acute distress. Head/Face: Normocephalic, atraumatic. Chest/axilla: Normal chest wall appearance and motion. Nontender with no deformity. Cardiovascular: Regular rate and rhythm with a normal S1 and S2. No gallops, murmurs, or rubs. Normal PMI, no JVD. No pulse deficits. Respiratory: Lungs have equal breath sounds bilaterally, clear to auscultation and percussion. No rales, rhonchi or wheezes noted. No increased work of breathing, no retractions or nasal flaring. Abdomen/GI: Soft, non-tender, with normal bowel sounds. No distension or tympany. No guarding or rebound. No evidence of tenderness throughout. MS/ Extremity: Pulses equal, no cyanosis. Neurovascular intact. Full, normal range of motion. Vital Signs: 11:06 BP 144 / 91; Pulse 87; Resp 18; Temp 98.2; Pulse Ox 97% ; Weight 104.33 kg; Height 5 mb9 ft. 6 in. ; 12:44 BP 132 / 87; Pulse 78; Resp 18; Temp 97.7; Pulse Ox 98% on R/A; ap3 11:06 Body Mass Index 37.12 (104.33 kg, 167.64 cm) mb9 MDM: 11:12 Patient medically screened. ms3 11:12 Differential diagnosis: urinary retention, Covarrubias catheter problem. ms3 12:26 Data reviewed: vital signs, nurses notes, and as a result, I will discharge patient. ms3 Care significantly affected by the following chronic conditions: Diabetes, Hypertension, Chronic Obstructive Pulmonary Disease. Counseling: I had a detailed discussion with the patient and/or guardian regarding the historical points, exam findings, and any diagnostic results supporting the discharge/admit diagnosis, the need for outpatient follow up, to return to the emergency department if symptoms worsen or persist or if there are any questions or concerns that arise at home. Special discussion: I discussed with the patient/guardian in detail that at this point there is no indication for admission to the hospital. It is understood, however, that if the symptoms persist or worsen the patient needs to return immediately for re-evaluation. ED course: Discussed necessity of urinary catheter to remain in place and patient states catheter was uncomfortable and would like catheter removed. Covarrubias catheter was removed and patient is able to urinate after removal of Covarrubias catheter. Patient to follow-up with Dr. Cherry in 2 to 3 days. Patient understands and agrees with plan. All questions were answered. Return precautions discussed include worsening symptoms, or any other concerns. 08/29 11:12 Order name: [facility]. Order: Remove covarrubias cath; Complete Time: 11:15 ms3 Administered Medications: No medications were administered Disposition Summary: 08/30/23 12:25 Discharge Ordered Notes: Location: Home ms3 Condition: Stable ms3 Diagnosis - Covarrubias Catheter Problem ms3 - Penile pain ms3 Followup: ms3 - With: Jose Enrique Cherry MD - When: 2 - 3 days - Reason: Recheck today's complaints Discharge Instructions: - Discharge Summary Sheet ms3 - Indwelling Urinary Catheter Care, Adult, [id number] ms3 - Indwelling Urinary Catheter Removal at Home, Male ms3 Forms: - Medication Reconciliation Form ms3 - Thank You Letter ms3 - Antibiotic Education ms3 - Prescription Opioid Use ms3 - Patient Portal Instructions ms3 - Leadership Thank You Letter ms3 Signatures: Robert Lyles DO DO ms3 Marta Denise RN RN mb9
[2023-08-30 13:17] VITALS: BP 132/87; TEMP 97.7; O2SAT 98
== END 2023-08-30 12:47 | disposition home or self-care (01) ==
LOC: ER 10:58
DX: T83.091A Other mechanical complication of indwelling urethral catheter, initial encounter (principal); N48.89 Other specified disorders of penis; Z88.5 Allergy status to narcotic agent

== ENCOUNTER 2023-12-05 10:19 | Emergency (ER) | payer OTHER, MEDICARE ==
--- NOTE | 2023-12-05 11:20 | ER ---
Nurse's Notes [facility] Name: Tonny Cardona Age: 68 yrs Sex: Male : 1955 Arrival Date: 12/05/2023 Time: 10:19 Bed 12 Private MD: Diagnosis: Psoriasis, unspecified Presentation: 12/04 10:40 Chief complaint: Patient states: "I have psoriasis and the creams I use aren't as6 working". Coronavirus screen: At this time, the client does not indicate any symptoms associated with coronavirus-19. Ebola Screen: No symptoms or risks identified at this time. Initial Sepsis Screen: Does the patient meet any 2 criteria? No. Patient's initial sepsis screen is negative. Does the patient have a suspected source of infection? No. Patient's initial sepsis screen is negative. Risk Assessment: Do you want to hurt yourself or someone else? Patient reports no desire to harm self or others. Onset of symptoms is unknown. 10:40 Method Of Arrival: Ambulatory as6 10:40 Acuity: FAIZA 4 as6 Triage Assessment: 10:43 General: Appears in no apparent distress. comfortable, Behavior is calm, cooperative. as6 Pain: Denies pain. Derm: Rash noted that is macular, papular, red, raised. Historical: - Allergies: 10:42 Lorazepam; as6 - PMHx: 10:42 ADD/ADHD; Cirrhosis; COPD; diabetes mellitus; Hypertension; psoriasis; as6 - PSHx: 10:42 hernia repair; Liver transplant (17 August 2022); as6 - Immunization history:: Adult Immunizations up to date. - Infectious Disease History:: Denies. - Social history:: Smoking status: Patient denies any tobacco usage or history of. Screenin:32 [facility] ED Fall Risk Assessment (Adult) History of falling in the last 3 months, as6 including since admission No falls in past 3 months (0 pts) Confusion or Disorientation No (0 pts) Intoxicated or Sedated No (0 pts) Impaired Gait No (0 pts) Mobility Assist Device Used No (0 pt) Altered Elimination No (0 pt) Score/Fall Risk Level 0 - 2 = Low Risk Oriented to surroundings, Maintained a safe environment, Educated pt \\T\\ family on fall prevention, incl call for assistance when getting out of bed, Assessed \\T\\ reinforced patient's understanding of fall precautions. Abuse screen: Denies threats or abuse. Denies injuries from another. Nutritional screening: No deficits noted. Tuberculosis screening: No symptoms or risk factors identified. Vital Signs: 10:40 BP 163 / 87; Pulse 98; Resp 18; Temp 98.1; Pulse Ox 95% ; Weight 99.79 kg; Height 5 ft. as6 6 in. ; Pain 0/10; 10:40 Body Mass Index 35.51 (99.79 kg, 167.64 cm) as6 10:40 Pain Scale: Adult as6 ED Course: 10:22 Patient arrived in ED. ra3 10:42 Triage completed. as6 10:42 Arm band placed on. as6 10:46 Robert Lyles DO is Attending Physician. ms3 11:19 Wilber Salvador DO is Referral Physician. ms3 11:32 Bed in low position. Call light in reach. Provided Education on: follow up. as6 11:32 No provider procedures requiring assistance completed. Patient did not have IV access as6 during this emergency room visit. Administered Medications: No medications were administered Medication: 11:33 VIS not applicable for this client. as6 Outcome: 11:20 Discharge ordered by MD. ms3 11:31 Discharged to home ambulatory, as6 11:31 Condition: stable 11:31 Discharge instructions given to patient, Instructed on discharge instructions, follow up and referral plans. medication usage, Demonstrated understanding of instructions, follow-up care, medications, Prescriptions given X 2, 11:33 Patient left the ED. as6 Signatures: Robert Lyles DO DO ms3 Mikey Cervantes, RN RN as6 Kayla Ny ra3
[2023-12-05 11:50] VITALS: BP 163/87; TEMP 98.1; O2SAT 95
--- NOTE | 2023-12-06 11:33 | EDPHYS ---
Physician Documentation [facility] Name: Tonny Cardona Age: 68 yrs Sex: Male : 1955 Arrival Date: 12/05/2023 Time: 10:19 Bed 12 Private MD: ED Physician Robert Lyles HPI: 12/04 21:15 This 68 yrs old Male presents to ER via Ambulatory with complaints of Rash - ms3 Spreading and itching. 21:15 68-year-old male with past medical history of ADD/ADHD, cirrhosis, COPD, diabetes, ms3 hypertension, psoriasis presents to the emergency department for psoriasis itching. Patient states he is applied [id number] creams to his areas of psoriasis without relief. Patient denies pain. Patient denies any alleviating or inciting factors. Historical: - Allergies: 10:42 Lorazepam; as6 - PMHx: 10:42 ADD/ADHD; Cirrhosis; COPD; diabetes mellitus; Hypertension; psoriasis; as6 - PSHx: 10:42 hernia repair; Liver transplant (17 August 2022); as6 - Immunization history:: Adult Immunizations up to date. - Infectious Disease History:: Denies. - Social history:: Smoking status: Patient denies any tobacco usage or history of. ROS: 21:15 Constitutional: Negative for fever, and chills. Neck: Negative for injury, pain, and ms3 swelling, Cardiovascular: Negative for chest pain, and palpitations. Respiratory: Negative for shortness of breath, cough, wheezing, and pleuritic chest pain, Abdomen/GI: Negative for abdominal pain, nausea, vomiting, diarrhea, and constipation, 21:15 Skin: Positive for rash, Exam: 21:15 Constitutional: This is a well developed, well nourished patient who is awake, alert, ms3 and in no acute distress. Head/Face: Normocephalic, atraumatic. Chest/axilla: Normal chest wall appearance and motion. Nontender with no deformity. Cardiovascular: Regular rate and rhythm with a normal S1 and S2. No gallops, murmurs, or rubs. Normal PMI, no JVD. No pulse deficits. Respiratory: Lungs have equal breath sounds bilaterally, clear to auscultation and percussion. No rales, rhonchi or wheezes noted. No increased work of breathing, no retractions or nasal flaring. Abdomen/GI: Soft, non-tender, with normal bowel sounds. No distension or tympany. No guarding or rebound. No evidence of tenderness throughout. 21:15 Skin: psoriasis, Vital Signs: 10:40 BP 163 / 87; Pulse 98; Resp 18; Temp 98.1; Pulse Ox 95% ; Weight 99.79 kg; Height 5 ft. as6 6 in. ; Pain 0/10; 10:40 Body Mass Index 35.51 (99.79 kg, 167.64 cm) as6 10:40 Pain Scale: Adult as6 MDM: 11:20 Patient medically screened. ms3 21:15 Differential diagnosis: Psoriasis versus pruritus. Data reviewed: vital signs, nurses ms3 notes, and as a result, I will discharge patient. Counseling: I had a detailed discussion with the patient and/or guardian regarding the historical points, exam findings, and any diagnostic results supporting the discharge/admit diagnosis, the need for outpatient follow up, to return to the emergency department if symptoms worsen or persist or if there are any questions or concerns that arise at home. ED course: Discussed physical exam findings with patient. Patient to follow-up with primary care physician 2 to 3 days. Patient understands and agrees with plan. All questions were answered. Return precautions discussed include worsening symptoms, or any other concerns. Administered Medications: No medications were administered Disposition Summary: 12/05/23 11:20 Discharge Ordered Notes: Location: Home ms3 Condition: Stable ms3 Diagnosis - Psoriasis, unspecified ms3 Followup: ms3 - With: Wilber Salvador DO - When: 2 - 3 days - Reason: Recheck today's complaints Discharge Instructions: - Discharge Summary Sheet ms3 - Psoriasis ms3 Forms: - Medication Reconciliation Form ms3 - Antibiotic Education ms3 - Prescription Opioid Use ms3 - Patient Portal Instructions ms3 - Leadership Thank You Letter ms3 Prescriptions: - Hydroxyzine HCl 25 mg Oral Tablet - take 1 tablet ORAL route every 6 hours As needed; 30 tablet; Refills: 0, ms3 Product Selection Permitted - Triamcinolone Acetonide 0.1 % Topical ointment - apply 1 application TOPICAL route every 12 hours As needed; 30 gram; Refills: ms3 0, Product Selection Permitted Signatures: Robert Lyles DO DO ms3 Slawson, Myton, RN RN as6
== END 2023-12-05 11:33 | disposition home or self-care (01) ==
LOC: ER 10:19
DX: L40.9 Psoriasis, unspecified (principal)
CPT/HCPCS: 99283

== ENCOUNTER 2024-03-05 20:14 | Emergency (ER) | payer OTHER, MEDICARE ==
[2024-03-05] MEDS ORDERED: NA CHLORIDE 0.9% 1,000 ML ONE (20:43)
[2024-03-05 20:47] LABS: Absolute Basophils 0.1 K/uL (0-0.5); Absolute Eosinophils 0.1 K/uL (0-0.5); Absolute Monocytes 0.6 K/uL (0.1-1.3); Absolute Neutrophil 6.1 K/uL (1.8-8.0); Basophils % 0.8 % (0-1.3); Eosinophils % 1.3 % (0-4.4); Hematocrit 46.9 % (39.6-49.0); Hemoglobin 15.1 g/dL (13.6-17.9); Lymphocytes % 22.1 % (15.3-44.8); MCH 24.9 pg (27.0-35.0); MCHC 32.2 g/dL (32.0-36.0); MCV 77.5 fL (80-100); MPV 8.9 fL (7.6-11.3); Monocytes % 7.2 % (3.3-12.3); Neutrophils % 68.6 % (41.7-73.7); Nucleated Red Blood Cells % 0.2 % (0-0); Platelets 181 thou/uL (152-406); RBC Red Blood Cell Count 6.05 M/uL (4.33-5.43); Red Cell Distribution Width 16.5 % (12.1-15.2)
[2024-03-05 20:54] LABS: Specific Gravity 1.024 (1.005-1.030); Sqamous Epithelial <5 /HPF (None Seen); Urine Bacteria None Seen /HPF (<20); Urine Bilirubin NEGATIVE (Negative); Urine Blood Negative (Negative); Urine Clarity Clear (Clear); Urine Color Colorless (Yellow); Urine Crystals Unidentified Few /HPF (None Seen); Urine Culture Reflex Order NOT NEEDED; Urine Glucose 4+ (Over) (Negative); Urine Ketones NEGATIVE (Negative); Urine Microscopic Reflex YN ORDER UMIC; Urine Nitrite NEGATIVE (Negative); Urine Protein NEGATIVE (Negative); Urine RBC <5 /HPF (None Seen); Urine Urobilinogen Normal (Normal); Urine WBC <5 /HPF (<5)
[2024-03-05 21:01] LABS: Albumin 3.2 g/dL (3.4-5.0); Albumin/Globulin Ratio 0.9 (1.1-1.8); Anion Gap 11.1 mEq/L (5.0-15.0); Bilirubin Total 0.4 mg/dL (0.2-1.0); Globulin 3.6 g/dL (2.3-3.5); Potassium 4.1 mEq/L (3.5-5.1); Protein, Total 6.8 g/dL (6.4-8.2)
--- NOTE | 2024-03-05 22:12 | EDPHYS ---
Physician Documentation [facility] Name: Tonny Cardona Age: 68 yrs Sex: Male : 1955 Arrival Date: 03/05/2024 Time: 20:14 Bed 5 Private MD: ED Physician Mushtaq Joya HPI: 03/05 21:01 This 68 yrs old Male presents to ER via Ambulatory with complaints of High kb Blood Sugar. 21:01 Pt is a 68 year old male who presents for high blood sugar that he believes started kb today. Pt states he doesn't normally check his blood sugar, but his daughter made him check it today and it was 400. States he feels completely fine. Denies n/v/d, abd pain. Historical: - Allergies: 20:36 Lorazepam; al5 - PMHx: 20:36 ADD/ADHD; Cirrhosis; COPD; diabetes mellitus; Hypertension; psoriasis; al5 - PSHx: 20:36 hernia repair; Liver transplant (17 August 2022); al5 - Immunization history:: Adult Immunizations up to date. - Infectious Disease History:: Denies. - Social history:: Smoking status: unknown. ROS: 21:01 Constitutional: As per HPI kb Exam: 21:01 Constitutional: This is a well developed, well nourished patient who is awake, alert, kb and in no acute distress. Head/Face: Normocephalic, atraumatic. ENT: Moist Mucous membranes Cardiovascular: Regular rate Respiratory: Respirations even and unlabored. No increased work of breathing. Talking in full sentences Abdomen/GI: Soft, non-tender. No distention Skin: Warm, dry with normal turgor. Normal color. MS/ Extremity: Pulses equal, no cyanosis. Neurovascular intact. Full, normal range of motion. Neuro: Awake and alert, GCS 15, oriented to person, place, time, and situation. Moves all extremities. Normal gait. Vital Signs: 20:30 BP 153 / 92; Pulse 82; Resp 16; Pulse Ox 96% on R/A; al5 20:34 BP 160 / 99; Pulse 86; Resp 20; Temp 98; Pulse Ox 96% ; Weight 104.33 kg; Height 5 ft. al5 6 in. ; Pain 0/10; 20:45 BP 144 / 87; Pulse 79; Resp 16; Pulse Ox 97% on R/A; al5 21:00 BP 140 / 86; Pulse 80; Resp 17; Pulse Ox 97% on R/A; al5 22:04 BP 142 / 84; Pulse 76; Resp 17 S; Pulse Ox 97% on R/A; lg3 22:42 BP 143 / 78; Pulse 75; Resp 18 S; Pulse Ox 98% on R/A; br2 20:34 Body Mass Index 37.12 (104.33 kg, 167.64 cm) al5 20:34 Pain Scale: Adult al5 MDM: 20:24 Patient medically screened. kb 21:01 Data reviewed: vital signs, nurses notes. kb 21:02 Differential diagnosis: DKA, hyperglycemia. kb 22:11 Counseling: I had a detailed discussion with the patient and/or guardian regarding the kb historical points, exam findings, and any diagnostic results supporting the discharge/admit diagnosis, lab results, the need for outpatient follow up, a family practitioner, to return to the emergency department if symptoms worsen or persist or if there are any questions or concerns that arise at home. 03/05 20:30 Order name: CBC with Diff; Complete Time: 20:59 kb 03/05 20:30 Order name: CMP; Complete Time: 21:02 kb 03/05 20:30 Order name: Urinalysis w/ reflexes; Complete Time: 20:59 kb 03/05 20:42 Order name: Glucose, Ancillary Testing; Complete Time: 20:43 EDMS 03/05 22:23 Order name: Glucose, Ancillary Testing; Complete Time: 22:28 EDMS 03/05 20:30 Order name: IV Start; Complete Time: 20:34 kb 03/05 21:41 Order name: Blood Glucose Level; Complete Time: 21:45 kb Administered Medications: 20:47 Drug: NS 0.9% IV 1000 ml IV at 1000 ml once Route: IV; Rate: 1000 ml; Site: right al5 antecubital; 22:44 Follow up: IV Status: Completed infusion; IV Intake: 1000ml br2 Disposition: 03/06 00:25 Co-signature as Attending Physician, Mushtaq Joya MD I reviewed the patient's care rt provided by the Advanced Practice Provider and agree with the diagnosis and treatment plan. Disposition Summary: 03/05/24 22:12 Discharge Ordered Notes: Location: Home kb Condition: Stable kb Diagnosis - Hyperglycemia, unspecified kb Followup: kb - With: Emergency Department - When: As needed - Reason: Worsening of condition Followup: kb - With: Private Physician - When: 2 - 3 days - Reason: Recheck today's complaints, Continuance of care, Re-evaluation by your physician Discharge Instructions: - Discharge Summary Sheet kb - Hyperglycemia, Fqoi-[id number]-[place] kb Forms: - Medication Reconciliation Form kb - Antibiotic Education kb - Prescription Opioid Use kb - Patient Portal Instructions kb - Leadership Thank You Letter kb Signatures: Dispatcher [employer] EDRadha Rg, PLASTICS WORKER-C PLASTICS WORKER-Ckb Mushtaq Joya MD MD rt Langhorst, Amanda, RN RN al5 Irene Heart RN br2
--- NOTE | 2024-03-05 22:12 | ER ---
Nurse's Notes [facility] Name: Tonny Cardona Age: 68 yrs Sex: Male : 1955 Arrival Date: 03/05/2024 Time: 20:14 Bed 5 Private MD: Diagnosis: Hyperglycemia, unspecified Presentation: 03/05 20:34 Chief complaint: Patient states: ran out of insulin yesterday, says his blood sugar was al5 400. denies any pain, n/v/d. Coronavirus screen: At this time, the client does not indicate any symptoms associated with coronavirus-19. Ebola Screen: No symptoms or risks identified at this time. Initial Sepsis Screen: Does the patient meet any 2 criteria? No. Patient's initial sepsis screen is negative. Does the patient have a suspected source of infection? No. Patient's initial sepsis screen is negative. Risk Assessment: Do you want to hurt yourself or someone else? Patient reports no desire to harm self or others. Onset of symptoms was March 05, 2024. 20:34 Method Of Arrival: Ambulatory al5 20:34 Acuity: FAIZA 3 al5 Triage Assessment: 20:37 General: Appears in no apparent distress. Behavior is calm, cooperative. Pain: Denies al5 pain. EENT: No signs and/or symptoms were reported regarding the EENT system. Neuro: Level of Consciousness is awake, alert, obeys commands, Oriented to person, place, time, situation. Cardiovascular: Capillary refill < 3 seconds Patient's skin is warm and dry. Respiratory: Airway is patent Respiratory effort is even, unlabored, Respiratory pattern is regular, symmetrical. GI: Abdomen is round non-distended, Reports elevated blood sugar. : No signs and/or symptoms were reported regarding the genitourinary system. Derm: Skin is intact, Skin is pink, warm \T\ dry. normal. Musculoskeletal: No signs and/or symptoms reported regarding the musculoskeletal system. Historical: - Allergies: 20:36 Lorazepam; al5 - PMHx: 20:36 ADD/ADHD; Cirrhosis; COPD; diabetes mellitus; Hypertension; psoriasis; al5 - PSHx: 20:36 hernia repair; Liver transplant (17 August 2022); al5 - Immunization history:: Adult Immunizations up to date. - Infectious Disease History:: Denies. - Social history:: Smoking status: unknown. Screenin:[facility] ED Fall Risk Assessment (Adult) History of falling in the last 3 months, al5 including since admission No falls in past 3 months (0 pts) Confusion or Disorientation No (0 pts) Intoxicated or Sedated No (0 pts) Impaired Gait No (0 pts) Mobility Assist Device Used No (0 pt) Altered Elimination No (0 pt) Score/Fall Risk Level 0 - 2 = Low Risk Oriented to surroundings, Maintained a safe environment, Hourly rounding (assess needs \T\ fall precautionary measures) done. Abuse screen: Denies threats or abuse. Denies injuries from another. Nutritional screening: No deficits noted. Tuberculosis screening: No symptoms or risk factors identified. Assessment: 20:38 Reassessment: see triage assessment. al5 22:04 Reassessment: Patient appears in no apparent distress at this time. No changes from lg3 previously documented assessment. Patient and/or family updated on plan of care and expected duration. Pain level reassessed. Patient is alert, oriented x 3, equal unlabored respirations, skin warm/dry/pink. Vital Signs: 20:30 BP 153 / 92; Pulse 82; Resp 16; Pulse Ox 96% on R/A; al5 20:34 BP 160 / 99; Pulse 86; Resp 20; Temp 98; Pulse Ox 96% ; Weight 104.33 kg; Height 5 ft. al5 6 in. ; Pain 0/10; 20:45 BP 144 / 87; Pulse 79; Resp 16; Pulse Ox 97% on R/A; al5 21:00 BP 140 / 86; Pulse 80; Resp 17; Pulse Ox 97% on R/A; al5 22:04 BP 142 / 84; Pulse 76; Resp 17 S; Pulse Ox 97% on R/A; lg3 22:42 BP 143 / 78; Pulse 75; Resp 18 S; Pulse Ox 98% on R/A; br2 20:34 Body Mass Index 37.12 (104.33 kg, 167.64 cm) al5 20:34 Pain Scale: Adult al5 ED Course: 20:19 Patient arrived in ED. gm2 20:24 Radha Reyna FNP-C is [facility]. kb 20:24 Mushtaq Joya MD is Attending Physician. kb 20:34 Robyn Wyman, RN is Primary Nurse. al5 20:34 Urinalysis w/ reflexes Sent. al5 20:34 CBC with Diff Sent. al5 20:34 CMP Sent. al5 20:36 Triage completed. al5 20:38 Arm band placed on right wrist. Patient placed in the treatment room, on a stretcher. al5 20:38 Patient has correct armband on for positive identification. Bed in low position. Call al5 light in reach. Side rails up X2. Provided Education on: plan of care. 20:39 No provider procedures requiring assistance completed. Inserted saline lock: 18 gauge al5 in right antecubital area, using aseptic technique. ,using aseptic technique. done by spa technician Blood collected. Flushed with 10 mL NS. 22:42 IV discontinued, intact, bleeding controlled, No redness/swelling at site. Pressure br2 dressing applied. Administered Medications: 20:47 Drug: NS 0.9% IV 1000 ml IV at 1000 ml once Route: IV; Rate: 1000 ml; Site: right al5 antecubital; 22:44 Follow up: IV Status: Completed infusion; IV Intake: 1000ml br2 Medication: 20:38 VIS not applicable for this client. al5 Intake: 22:44 IV: 1000ml; Total: 1000ml. br2 Outcome: 22:12 Discharge ordered by . kb 22:42 Discharged to home ambulatory, br2 22:42 Condition: good 22:42 Discharge instructions given to patient, Instructed on discharge instructions, follow up and referral plans. Demonstrated understanding of instructions, 22:44 Patient left the ED. br2 Signatures: Radha Reyna, MISTI-C FIELD SERVICE ENGINEER-Maegan Sanz RN RN radha3 Jennifer Coats gm2 Robyn yWman, RN RN al5 Irene Heart, RN RN br2
[2024-03-05 23:17] VITALS: TEMP 98
[2024-03-05 23:21] VITALS: BP 143/78; O2SAT 98
== END 2024-03-05 22:44 | disposition home or self-care (01) ==
LOC: ER 20:14
DX: E11.65 Type 2 diabetes mellitus with hyperglycemia (principal); I10 Essential (primary) hypertension; Z94.4 Liver transplant status
CPT/HCPCS: 96361; 85025; 81001; 36415; 82947 ×2; 80053; 96360; 99284; J7030

== ENCOUNTER 2024-05-26 15:02 | Emergency (ER) | payer OTHER, MEDICARE ==
[2024-05-26 16:11] LABS: SARS-CoV-2 Antigen CONTROL BLUE LINE VIS/BG OK; SARS-CoV-2 Antigen Rapid Res Negative (Negative)
--- NOTE | 2024-05-26 16:45 | RAD REPORT ---
EXAM: Chest Pa And Lat (2 Views) HISTORY: Congestion;Cough COMPARISON: 02/17/2023 FINDINGS: LUNGS/PLEURA: The lungs are clear. No pleural effusions or pneumothorax. No pulmonary edema. MEDIASTINUM: The mediastinal silhouette is within normal limits. CARDIAC: Mild cardiomegaly UPPER ABDOMEN: No significant abnormality. BONES: No acute abnormality. LINES/TUBES/OTHER: N/A IMPRESSION: No evidence of acute cardiopulmonary disease.
--- NOTE | 2024-05-26 16:48 | ER ---
Nurse's Notes [facility] Name: Tonny Cardona Age: 68 yrs Sex: Male : 1955 Arrival Date: 05/26/2024 Time: 15:02 Bed 12 Private MD: Diagnosis: Viral infection, unspecified Presentation: 05/26 15:19 Chief complaint: Patient states: runny nose x1 week, sore throat started today, tm6 difficult to talk. Does not hurt to swallow. Coronavirus screen: Client denies travel out of the [place] in the last 14 days. Ebola Screen: Patient negative for fever greater than or equal to 101.5 degrees Fahrenheit, and additional compatible Ebola Virus Disease symptoms Patient denies exposure to infectious person. Patient denies travel to an Ebola-affected area in the 21 days before illness onset. No symptoms or risks identified at this time. Initial Sepsis Screen: Does the patient meet any 2 criteria? HR > 90 bpm. Does the patient have a suspected source of infection? No. Patient's initial sepsis screen is negative. Risk Assessment: Do you want to hurt yourself or someone else? Patient reports no desire to harm self or others. Onset of symptoms was May 19, 2024. 15:19 Method Of Arrival: Wheelchair tm6 15:19 Acuity: FAIZA 4 tm6 Triage Assessment: 15:19 General: Appears in no apparent distress. Behavior is calm, cooperative. Pain: tm6 Complains of pain in throat Pain currently is 3 out of 10 on a pain scale. EENT: Reports nasal congestion nasal discharge sore throat. Neuro: Level of Consciousness is awake, alert, obeys commands, Oriented to person, place, time, situation. Cardiovascular: Patient's skin is warm and dry. Respiratory: Reports cough that is Airway is patent Respiratory effort is even, unlabored, Respiratory pattern is regular, symmetrical. GI: No signs and/or symptoms were reported involving the gastrointestinal system. Abdomen is round. : No signs and/or symptoms were reported regarding the genitourinary system. Derm: No signs and/or symptoms reported regarding the dermatologic system. Musculoskeletal: No signs and/or symptoms reported regarding the musculoskeletal system. Historical: - Allergies: 15:18 Lorazepam; tm6 - PMHx: 15:18 ADD/ADHD; Cirrhosis; COPD; diabetes mellitus; Hypertension; psoriasis; tm6 - PSHx: 15:18 hernia repair; Liver transplant (17 August 2022); tm6 - Immunization history:: Flu vaccine is up to date. - Infectious Disease History:: Denies. - Social history:: Smoking status: Patient/guardian denies using tobacco, the patient reports quitting approximately 1 years ago. Assessment: 16:44 Reassessment: PT states, "I'm tired of waiting! I've been here over 2 hours!" Educated ss patient that we are awaiting radiology results and they should be back any minute. Pt states, "I'll just come back tomorrow, I don't want to be here until 4 in the morning!" Educated patient that he will not be waiting for results till 4 in the morning and still insist on leaving. DARYL Hadley notified and states she will discharge the patient now as his XRAY results came back as soon as the left the department. Vital Signs: 15:18 Weight 104.33 kg; Height 5 ft. 3 in. ; tm6 15:19 BP 124 / 94; Pulse 114; Resp 19; Pulse Ox 97% on R/A; MAP 101 mmHg; tm6 15:19 Pain 3/10; tm6 15:22 Temp 99.2(O); tm6 15:18 Body Mass Index 40.74 (104.33 kg, 160.02 cm) tm6 15:19 Pain Scale: Adult tm6 ED Course: 15:05 Patient arrived in ED. mr 15:08 Ruthann Stringer PA-C is PHCP. sb4 15:08 Irving Chacko MD is Attending Physician. sb4 15:19 Arm band placed on right wrist. tm6 15:20 Triage completed. tm6 15:22 Winston Kaur, RN is Primary Nurse. le1 16:44 Chest Pa And Lat (2 Views) XRAY In Process Unspecified. EDMS 17:02 No provider procedures requiring assistance completed. Patient did not have IV access ss during this emergency room visit. Administered Medications: No medications were administered Outcome: 16:48 Discharge ordered by . sb4 17:02 Discharged to home ambulatory, Pt left prior to receiving discharge instructions ss 17:02 Condition: good 17:02 Instructed on discharge instructions, follow up and referral plans. left prior to receiving discharge instructions 17:04 Patient left the ED. ss Signatures: Dispatcher [employer] EDMarta Morgan, Reg Reg mr Viviane Titus, RN RN Ruthann Botello PA-C GIOVANNA [email or web address] Rose Cross RN RN tm6 Winston Kaur RN RN le1 Corrections: (The following items were deleted from the chart) 17:02 16:40 Reassessment: PT states, "I'm tired of waiting! I've been here over 2 hours!" ss Educated patient that we are awaiting radiology results and they should be back any minute. Pt states, "I'll just come back tomorrow, I don't want to be here until 4 in the morning!" Educated patient that he will not be waiting for results till 4 in the morning and still insist on leaving. DARYL Hadley notified and states she will discharge the patient now as his XRAY results came back as soon as the left the department. ss
--- NOTE | 2024-05-26 16:48 | EDPHYS ---
Physician Documentation [facility] Name: Tonny Cardona Age: 68 yrs Sex: Male : 1955 Arrival Date: 05/26/2024 Time: 15:02 Bed 12 Private MD: ED Physician Irving Chacko HPI: 05/26 17:11 This 68 yrs old Male presents to ER via Wheelchair with complaints of Sore sb4 Throat, Runny Nose. 17:11 sore throat, cough, hoarse voice, runny nose x 24 hours. has taken some unknown OTC sb4 medication. denies fever. denies sick contacts. no chest pain or shortness of breath. Historical: - Allergies: 15:18 Lorazepam; tm6 - PMHx: 15:18 ADD/ADHD; Cirrhosis; COPD; diabetes mellitus; Hypertension; psoriasis; tm6 - PSHx: 15:18 hernia repair; Liver transplant (17 August 2022); tm6 - Immunization history:: Flu vaccine is up to date. - Infectious Disease History:: Denies. - Social history:: Smoking status: Patient/guardian denies using tobacco, the patient reports quitting approximately 1 years ago. ROS: 17:11 Constitutional: Negative for fever, chills, and weight loss, sb4 17:11 ENT: Positive for hoarseness, rhinorrhea, sinus congestion, sore throat, 17:11 Respiratory: Positive for cough, 17:11 All other systems are negative, Exam: 17:11 Head/Face: Normocephalic, atraumatic. Eyes: Extra-ocular motions intact. Periorbital sb4 areas with no swelling, redness, or edema. ENT: Mucous membranes moist. Cardiovascular: Regular rate and rhythm with a normal S1 and S2. Respiratory: No increased work of breathing, no retractions or nasal flaring. Abdomen/GI: Soft, non-tender, no distension. Skin: Warm, dry with normal turgor. Normal color with no rashes, no lesions, and no evidence of cellulitis. 17:11 Constitutional: The patient appears in no acute distress, alert, awake, Vital Signs: 15:18 Weight 104.33 kg; Height 5 ft. 3 in. ; tm6 15:19 BP 124 / 94; Pulse 114; Resp 19; Pulse Ox 97% on R/A; MAP 101 mmHg; tm6 15:19 Pain 3/10; tm6 15:22 Temp 99.2(O); tm6 15:18 Body Mass Index 40.74 (104.33 kg, 160.02 cm) tm6 15:19 Pain Scale: Adult tm6 MDM: 15:22 Medical Screening Exam initiated sb4 17:12 Data reviewed: vital signs, nurses notes, lab test result(s), radiologic studies, and sb4 as a result, I will discharge patient. ED course: patient eloped before I could review his results or discuss treatment plan. 05/26 15:31 Order name: SARS RAPID; Complete Time: 16:11 sb4 05/26 15:31 Order name: Flu; Complete Time: 16:44 sb4 05/26 15:31 Order name: Strep sb4 05/26 15:31 Order name: RSV; Complete Time: 16:12 sb4 05/26 16:14 Order name: Throat Culture EDMS 05/26 15:31 Order name: Chest Pa And Lat (2 Views) XRAY; Complete Time: 16:47 sb4 Administered Medications: No medications were administered Disposition: 19:47 Co-signature as Attending Physician, Irving Chacko MD I reviewed the patient's care rn provided by the Advanced Practice Provider and agree with the diagnosis and treatment plan. Disposition Summary: 05/26/24 16:48 Discharge Ordered Notes: Location: Home sb4 Problem: new sb4 Symptoms: are unchanged sb4 Condition: Stable sb4 Diagnosis - Viral infection, unspecified sb4 Followup: sb4 - With: Emergency Department - When: As needed - Reason: Trouble breathing, Worsening of condition Discharge Instructions: - Discharge Summary Sheet sb4 - Viral Illness, Adult sb4 Forms: - Medication Reconciliation Form sb4 - Antibiotic Education sb4 - Prescription Opioid Use sb4 - Patient Portal Instructions sb4 - Leadership Thank You Letter sb4 Signatures: Dispatcher [employer] Irving Gonzalez MD MD rn Brown, Sophia, PA-C PA-C sb4 Masterson, Tawney RN RN tm6 Corrections: (The following items were deleted from the chart) 15: 15:31 SARS-COV-2 Antigen Rapid+I.LAB.BRZ [facility]. [facility]31 15:31 Influenza Screen (A \T\ B)+BA.LAB.BRZ ordered. EDMS EDMS 15:31 Group A Streptococcus Rapid Sc+BA.LAB.BRZ ordered. EDMS EDMS :31 Respiratory Syncytial Virus Ag+BA.LAB.BRZ ordered. EDMS EDMS
[2024-05-26 17:13] VITALS: BP 124/94; O2SAT 97
[2024-05-26 17:15] VITALS: TEMP 99.2
== END 2024-05-26 17:04 | disposition home or self-care (01) ==
LOC: ER 15:02
DX: B34.9 Viral infection, unspecified (principal); Z11.52 Encounter for screening for COVID-19; J44.9 Chronic obstructive pulmonary disease, unspecified; Z94.4 Liver transplant status
CPT/HCPCS: 36415; 71046; 87070; 87081; 87804; 87807; 87811; 99282

== ENCOUNTER 2024-07-24 16:56 | Emergency (ER) | payer MEDICARE, OTHER ==
[2024-07-24] MEDS ORDERED: NA CHLORIDE 0.9% 1,000 ML ONE (18:15)
[2024-07-24 18:28] LABS: Absolute Lymphocytes (CBC) 1.3 K/uL (0.7-4.9); Absolute Monocytes 0.6 K/uL (0.1-1.3); Absolute Neutrophil 5.1 K/uL (1.8-8.0); Basophils % 0.4 % (0-1.3); Eosinophils % 0.2 % (0-4.4); Hematocrit 46.6 % (39.6-49.0); Hemoglobin 15.1 g/dL (13.6-17.9); Lymphocytes % 18.4 % (15.3-44.8); MCH 27.2 pg (27.0-35.0); MCHC 32.4 g/dL (32.0-36.0); MCV 83.8 fL (80-100); MPV 9.3 fL (7.6-11.3); Monocytes % 8.5 % (3.3-12.3); Neutrophils % 72.5 % (41.7-73.7); Nucleated Red Blood Cells % 0.1 % (0-0); Platelets 174 thou/uL (152-406); RBC Red Blood Cell Count 5.56 M/uL (4.33-5.43); Red Cell Distribution Width 15.9 % (12.1-15.2)
[2024-07-24 19:03] LABS: Albumin 2.7 g/dL (3.4-5.0); Albumin/Globulin Ratio 0.7 (1.1-1.8); Anion Gap 14.2 mEq/L (5.0-15.0); Bilirubin Total 1.3 mg/dL (0.2-1.0); Globulin 3.7 g/dL (2.3-3.5); Potassium 4.2 mEq/L (3.5-5.1); Protein, Total 6.4 g/dL (6.4-8.2)
[2024-07-24] MEDS ORDERED: INSULIN REGULAR (HUMAN) 100 UNIT/ML ONE (19:21)
--- NOTE | 2024-07-24 20:35 | ER ---
Nurse's Notes [facility] Name: Tonny Cardona Age: 68 yrs Sex: Male : 1955 Arrival Date: 07/24/2024 Time: 16:56 Bed 18 Private MD: Diagnosis: Hyperglycemia, unspecified;Abnormal results of liver function studies Presentation: 07/24 17:05 Chief complaint: Patient states: HIGH BLOOD SUGAR READ ABOVE 500 AT HOME TODAY. DID NOT db TAKE INSULIN. DRINKING COKE IN TRIAGE. LIVER TRANSPLANT PATIENT. Coronavirus screen: Client denies travel out of the [place] in the last 14 days. At this time, the client does not indicate any symptoms associated with coronavirus-19. Ebola Screen: Patient negative for fever greater than or equal to 101.5 degrees Fahrenheit, and additional compatible Ebola Virus Disease symptoms Patient denies exposure to infectious person. Patient denies travel to an Ebola-affected area in the 21 days before illness onset. No symptoms or risks identified at this time. Initial Sepsis Screen: Does the patient meet any 2 criteria? No. Patient's initial sepsis screen is negative. Does the patient have a suspected source of infection? No. Patient's initial sepsis screen is negative. Risk Assessment: Do you want to hurt yourself or someone else? Patient reports no desire to harm self or others. Onset of symptoms was July 24, 2024. 17:05 Method Of Arrival: Ambulatory db 17:05 Acuity: FAIZA 3 db Triage Assessment: 17:08 General: Appears in no apparent distress. comfortable, Behavior is calm, cooperative. db Pain: Denies pain. Historical: - Allergies: 17:08 Lorazepam; db - PMHx: 17:08 ADD/ADHD; COPD; Cirrhosis; Hypertension; diabetes mellitus; psoriasis; db - PSHx: 17:08 hernia repair; Liver transplant (17 August 2022); db - Immunization history:: Adult Immunizations unknown. - Infectious Disease History:: Denies. - Social history:: Smoking status: Patient/guardian denies using tobacco, the patient reports quitting approximately 2 years ago. Screenin:21 [facility] ED Fall Risk Assessment (Adult) History of falling in the last 3 months, kc6 including since admission No falls in past 3 months (0 pts) Confusion or Disorientation No (0 pts) Intoxicated or Sedated No (0 pts) Impaired Gait No (0 pts) Mobility Assist Device Used No (0 pt) Altered Elimination No (0 pt) Score/Fall Risk Level 0 - 2 = Low Risk Oriented to surroundings, Maintained a safe environment, Educated pt \T\ family on fall prevention, incl call for assistance when getting out of bed. Abuse screen: Denies threats or abuse. Denies injuries from another. Nutritional screening: No deficits noted. Tuberculosis screening: No symptoms or risk factors identified. Assessment: 18:49 General: Appears in no apparent distress. comfortable, well groomed, well developed, kc6 Behavior is calm, cooperative, appropriate for age. Pain: Denies pain. Neuro: Level of Consciousness is awake, alert, obeys commands, Oriented to person, place, time, situation, Appropriate for age. Cardiovascular: Capillary refill < 3 seconds. Respiratory: Airway is patent Trachea midline Respiratory effort is even, unlabored, Respiratory pattern is regular, symmetrical. GI: No signs and/or symptoms were reported involving the gastrointestinal system. : No signs and/or symptoms were reported regarding the genitourinary system. EENT: No signs and/or symptoms were reported regarding the EENT system. Derm: No signs and/or symptoms reported regarding the dermatologic system. Skin is intact, is healthy with good turgor, Skin is pink, warm \T\ dry. Musculoskeletal: No signs and/or symptoms reported regarding the musculoskeletal system. Circulation, motion, and sensation intact. Range of motion: intact in all extremities. 19:03 General: Appears in no apparent distress. comfortable, Behavior is cooperative, rg5 appropriate for age. 19:03 Pain: Denies pain. Neuro: Level of Consciousness is awake, alert, obeys commands, rg5 Oriented to person, place, time. Cardiovascular: Patient's skin is warm and dry. Respiratory: Airway is patent Trachea midline Respiratory effort is even, unlabored, Respiratory pattern is regular, symmetrical. 20:00 Reassessment: No changes from previously documented assessment. Patient and/or family rg5 updated on plan of care and expected duration. Pain level reassessed. Patient is alert, oriented x 3, equal unlabored respirations, skin warm/dry/pink. Vital Signs: 17:05 BP 143 / 89; Pulse 82; Resp 18; Temp 98; Pulse Ox 100% ; Weight 90.72 kg; Height 5 ft. db 6 in. ; 18:54 BP 149 / 80; Pulse 65; Resp 18 S; Temp 98.2(O); Pulse Ox 99% on R/A; kc6 17:05 Body Mass Index 32.28 (90.72 kg, 167.64 cm) db ED Course: 16:58 Patient arrived in ED. mr 16:59 Radha Reyna[facility]. kb 16:59 Irving Chacko MD is Attending Physician. kb 17:08 Triage completed. db 17:08 Arm band placed on Patient placed in waiting room. db 18:02 Yee Buchanan, DIANE is Primary Nurse. kc6 18:20 Initial lab(s) drawn, by me, sent to lab. Missed attempt(s): 20 gauge in right kc6 antecubital area. Inserted saline lock: 22 gauge in left antecubital area, using aseptic technique. Blood collected. Flushed with 10 mL NS. Patient maintains SpO2 saturation greater than 95% on room air. 18:21 Patient has correct armband on for positive identification. Bed in low position. Call [facility] light in reach. Side rails up X 1. Pulse ox on. NIBP on. Door closed. Noise minimized. Lights dimmed. Warm blanket given. Pillow given. Verbal reassurance given. 19:00 Report given to DIANE Cheney. [facility] 20:18 2017 called [facility] for transfer talked to Casa. 2031 cancelled transfer sp talked to Casa. 20:46 No provider procedures requiring assistance completed. IV discontinued, bleeding rg5 controlled, No redness/swelling at site. Pressure dressing applied. 20:47 Provided Education on: post er care. rg5 Administered Medications: 18:20 Drug: NS 0.9% IV 1000 ml IV at 1000 ml once; to be given as a bolus over [address] [facility] Route: IV; Rate: 1000 ml; Site: left antecubital; 19:00 Follow up: IV Status: Completed infusion; IV Intake: 1000ml rg5 19:23 Drug: Insulin Regular Human IVP 10 units IVP once {Co-Signature: kj2 (Susan Butt RN).} Route: IVP; Site: left antecubital; 20:48 Follow up: Response: No adverse reaction rg5 20:59 Not Given (Other Intervention Used): ondansetron4 mg PO once kb Medication: 20:47 VIS not applicable for this client. rg5 Point of Care Testing: Blood Glucose: 17:05 Blood Glucose: High (>450 mg/dL); db Ranges: Intake: 19:00 IV: 1000ml; Total: 1000ml. rg5 Outcome: 20:34 Discharge ordered by MD. patterson 20:46 Discharged to home rg5 20:46 Condition: stable 20:46 Instructed on discharge instructions, 20:47 Patient left the ED. rg5 Signatures: Radha Reyna, ANALYTIC MANAGER-C ANALYTIC MANAGER-Ckb Gabbie Grey sp Conrad, Marta, Reg Reg mr Yee Buchanan, RN RN kc6 Kathi Zelaya RN RN Krish Aldana RN RN rg5 Susan Butt RN kj2
--- NOTE | 2024-07-24 20:35 | EDPHYS ---
Physician Documentation [facility] Name: Tonny Cardona Age: 68 yrs Sex: Male : 1955 Arrival Date: 07/24/2024 Time: 16:56 Bed 18 Private MD: ED Physician Irving Chacko HPI: 07/24 17:04 This 68 yrs old Male presents to ER via Unassigned with complaints of High kb Blood Sugar. 17:04 PT is a 68 year old male who presents for high blood sugar. States he was admitted to a hospital in [place] for elevated liver enzymes from Monday to Monday. Was started on steroids upon admission and sent home on oral steroids so that could be what is making his sugar high. Daughter reports sugar of [address]. Pt denies n/v, abd pain. . Historical: - Allergies: 17:08 Lorazepam; db - PMHx: 17:08 ADD/ADHD; COPD; Cirrhosis; Hypertension; diabetes mellitus; psoriasis; db - PSHx: 17:08 hernia repair; Liver transplant (17 August 2022); db - Immunization history:: Adult Immunizations unknown. - Infectious Disease History:: Denies. - Social history:: Smoking status: Patient/guardian denies using tobacco, the patient reports quitting approximately 2 years ago. ROS: 17:04 Constitutional: As per HPI kb Exam: 17:04 Constitutional: This is a well developed, well nourished patient who is awake, alert, kb and in no acute distress. Head/Face: Normocephalic, atraumatic. ENT: Moist Mucous membranes Cardiovascular: Regular rate Respiratory: Respirations even and unlabored. No increased work of breathing. Talking in full sentences Abdomen/GI: Soft, non-tender. No distention Skin: Warm, dry with normal turgor. Normal color. MS/ Extremity: Pulses equal, no cyanosis. Neurovascular intact. Full, normal range of motion. Neuro: Awake and alert, GCS 15, oriented to person, place, time, and situation. Vital Signs: 17:05 BP 143 / 89; Pulse 82; Resp 18; Temp 98; Pulse Ox 100% ; Weight 90.72 kg; Height 5 ft. db 6 in. ; 18:54 BP 149 / 80; Pulse 65; Resp 18 S; Temp 98.2(O); Pulse Ox 99% on R/A; kc6 17:05 Body Mass Index 32.28 (90.72 kg, 167.64 cm) db MDM: 16:59 Medical Screening Exam initiated kb 20:04 Data reviewed: vital signs, nurses notes. kb 20:31 Differential diagnosis: DKA, hyperglycemia. Consideration of Admission/Observation kb Escalation of care including admission/observation considered. transfer considered for elevated LFTs. Call placed to [facility] to discuss case with transplant team after discussing plan with patient. While waiting for callback pt requested to leave. States he does not want to stay here any longer and is ready to go. Pt does not want to wait for me to discuss labs with the transplant team/claims analyst. . Historians other than the Patient: Daughter/Son: daughter. Counseling: I had a detailed discussion with the patient and/or guardian regarding the historical points, exam findings, and any diagnostic results supporting the discharge/admit diagnosis, lab results, the need for outpatient follow up, a family practitioner, to return to the emergency department if symptoms worsen or persist or if there are any questions or concerns that arise at home. 07/24 17:03 Order name: CBC with Diff; Complete Time: 18:38 kb 07/24 17:03 Order name: CMP; Complete Time: 19:06 kb 07/24 17:17 Order name: Glucose, Ancillary Testing; Complete Time: 17:20 EDMS 07/24 20:01 Order name: Glucose, Ancillary Testing; Complete Time: 20:01 EDMS 07/24 17:03 Order name: IV Start; Complete Time: 18:19 kb Administered Medications: 18:20 Drug: NS 0.9% IV 1000 ml IV at 1000 ml once; to be given as a bolus over 60 minutes kc6 Route: IV; Rate: 1000 ml; Site: left antecubital; 19:00 Follow up: IV Status: Completed infusion; IV Intake: 1000ml rg5 19:23 Drug: Insulin Regular Human IVP 10 units IVP once {Co-Signature: kj2 (Susan Butt5 RN).} Route: IVP; Site: left antecubital; 20:48 Follow up: Response: No adverse reaction rg5 20:59 Not Given (Other Intervention Used): ondansetron4 mg PO once Point of Care Testing: Blood Glucose: 17:05 Blood Glucose: High (>450 mg/dL); db Ranges: Critical Glucose Levels:Adult <50 mg/dl or >400 mg/dl <40 mg/dl or >180 mg/dl Disposition: 07/25 16:20 Co-signature as Attending Physician, Irving Chacko MD I reviewed the patient's care rn provided by the Advanced Practice Provider and agree with the diagnosis and treatment plan. Disposition Summary: 07/24/24 20:34 Discharge Ordered Notes: Location: Home kb Condition: Stable kb Diagnosis - Hyperglycemia, unspecified kb - Abnormal results of liver function studies kb Followup: kb - With: Emergency Department - When: As needed - Reason: Worsening of condition Followup: kb - With: Private Physician - When: 2 - 3 days - Reason: Recheck today's complaints, Continuance of care, Re-evaluation by your physician Discharge Instructions: - Discharge Summary Sheet kb - Hyperglycemia, Sral-av-Nkxf kb Forms: - Medication Reconciliation Form kb - Antibiotic Education kb - Prescription Opioid Use kb - Patient Portal Instructions kb - Leadership Thank You Letter kb Signatures: Dispatcher [employer] Radha Osei, NURSE CLINICIAN-C NURSE CLINICIAN-Ckb Irving Chacko MD MD rn Campbell, Kaitlyn, RN RN kc6 Kathi Zelaya RN RN Krish Aldana, RN RN rg5 Susan Butt RN kj2
[2024-07-24 20:56] VITALS: BP 149/80; TEMP 98.2; O2SAT 99
== END 2024-07-24 20:47 | disposition home or self-care (01) ==
LOC: ER 16:56
DX: E11.65 Type 2 diabetes mellitus with hyperglycemia (principal); R94.5 Abnormal results of liver function studies; I10 Essential (primary) hypertension; Z94.4 Liver transplant status
CPT/HCPCS: 96361; 85025; 36415; 82947 ×2; 80053; 96374; 99284; J7030